=== PATIENT | male | born 1945 | race Caucasian/White ===

== ENCOUNTER 2022-01-21 14:45 | Outpatient (CLI) | payer BC, SELFPAY ==
[2022-01-21 16:55] LABS: INR 2.04 (0.91-1.10); Prothrombin Time 23.5 Seconds
[2022-01-21 18:01] LABS: Albumin* 4.5 g/dL (3.3-5.0); Chloride* 103 mmol/L (96-114)
[2022-01-21 18:02] LABS: Potassium* 4.5 mmol/L (3.6-5.1); Sodium* 139 mmol/L (135-149)
[2022-01-21 18:04] LABS: Alkaline Phosphatase* 66 U/L (40-150); Aspartate Amino Transferase* 30 U/L (12-35); Bilirubin Total* 1.2 mg/dL (0.1-1.5); Blood Urea Nitrogen* 16 mg/dL (7-30); Carbon Dioxide* 29 mmol/L (20-32); Creatinine* 0.9 mg/dL (0.5-1.5); Estimated Glomerular Filt Rate 87.96; Total Protein* 7.2 g/dL (6.0-8.3)
[2022-01-21 18:05] LABS: Alanine Aminotransferase* 24 U/L (4-50); Calcium* 9.4 mg/dL (8.4-10.6); Glucose* 120 mg/dL (60-115)
== END 2022-01-21 14:46 | disposition home or self-care (01) ==
PROVIDERS: PCP Family Medicine; Visit Provider Family Medicine
DX: Z00.00 Encounter for general adult medical examination without abnormal findings (principal); I10 Essential (primary) hypertension; I48.91 Unspecified atrial fibrillation; I48.92 Unspecified atrial flutter; Z79.01 Long term (current) use of anticoagulants
CPT/HCPCS: 80053; 85610

== ENCOUNTER 2022-02-25 15:35 | Outpatient (REF) | payer BC, SELFPAY ==
--- OUTSIDE RECORDS SUMMARY | 2022-02-25 15:40 | XMS_ITS | Encounter Summary ---
:1945 Author Organization [facility] Address [address] [place] [address] Care Team Providers Name Role Phone Unavailable Primary Care Provider Unavailable Reason for Referral Outpatient (Routine) - Authorized Specialty Diagnoses / Procedures Referred By Contact Refer red To Contact Neurology Cameron Poe M.D ., M.P.H. [facility] Region [address] [place] [address] Referral ID Status Reason Start Date Expiration Date Visits V isits Requested Authorized [id number] Authorized 02/03/2022 02/03/2023 1 1 Reason for Visit Reason Comments Central Sleep Apnea Vascular dementia Ref. Dr. Komal Prattjacoby [facility] Appointment Request (Routine) - Closed Specialty Diagnoses / Procedures Referred By Contact Refer red To Contact Neurology Referral ID Status Reason Start Date Expiration Date Visits Requ ested Visits Authorized [id number] Closed 01/27/2022 01/27/2023 1 Encounter Details Date Type Department Care Team Description 02/03/2022 Comprehensive Visit Department of Cameron Poe a Multiple Infarction (HCC) (Primary Dx); Neurology in [place], Apnea Sleep [place] M.P.H. [address] [place] [address] [address] [facility] [phone] [place], [place] [phone] Social History Tobacco Use Types Packs/Day Years Used Date Smoking Tobacco: Former Cigarettes Quit : 1978 Smokeless Tobacco: Never Tobacco Cessation: Counseling Given: Not Answered Sex Assigned at Date Recorded Not on file documented as of this encounter Last Filed Vital Signs Vital Sign Reading Time Taken Comments Blood Pressure 107/73 02/03/2022 2:05 PM CDT Pulse 81 02/03/2022 2:05 PM CDT Temperature - - Respiratory Rate - - Oxygen Saturation - - Inhaled Oxygen Concentration - - Weight 89.6 kg (197 lb 8.5 oz) 02/03/2022 2:05 PM CDT Height 184 cm (6' 0.44) 02/03/2022 2:05 PM CDT Body Mass Index 26.46 02/03/2022 2:05 PM CDT documented in this encounter Progress Notes Cameron Poe M.D., M.P.H. - 02/03/2022 2:30 PM CDT Sleep Clinic No referring provider defined for this encounter. SUBJECTIVE HISTORY OF PRESENT ILLNESS The patient is for here for a get acquainted meeting. He had bilevel ventilation for a long time and then was recently changed to ASV by the most recent treating sleep physician. His machine is sonew that he is going to need a compliance return but he has only had a week so this is too early forthat. So he will indeed have to come back. Download for the last two days shows he has used it half of that time and when he did use it for 3 hours and 29 minutes with a residual AHI of 4.8. I explained that compliance criteria require that he use it for an average of more than 4 hours a night and more than 70% of nights and they verbalized understanding of. He says he getting use the machine thinks he will be able to get on with that. Patient also has vascular dementia they want me to follow with him for that and I agreed to do that. [place] Sleepiness Score: Seven MEDICAL HISTORY No past medical history on file. SURGICAL HISTORY No past surgical history on file. CURRENT MEDICATIONS Current Outpatient Medications: cholecalciferol, vitamin D3, (cholecalciferol) 25 mcg (1,000 Unit) tablet, Take 25 mcg by mouth daily., Disp: , Rfl: dofetilide (TIKOSYN) 250 mcg capsule, Take 250 mg by mouth 2 (two) times a day., Disp: , Rfl: donepeziL (ARICEPT) 10 mg tablet, Take 10 mg by mouth daily., Disp: , Rfl: ipratropium (ATROVENT) 21 mcg (0.03 %) nasal spray, Administer 2 sprays into each nostril 3 (three)times a day as needed for rhinitis., Disp: , Rfl: Jantoven 5 mg tablet, Take 5 mg by mouth daily., Disp: , Rfl: lisinopriL (PRINIVIL,ZESTRIL) 10 mg tablet, Take 10 mg by mouth daily., Disp: , Rfl: memantine (NAMENDA) 10 mg tablet, TAKE 1 TABLET (10 MG) BY MOUTH TWICE DAILY., Disp: , Rfl: polyethylene glycol (MIRALAX) 17 gram powder packet, Take 17 g by mouth daily. Dissolve each 17 g dose in 240 mLs (8 ounces) of beverage., Disp: , Rfl: cetirizine (ZyrTEC) 10 mg chewable tablet, Chew 10 mg as needed for allergies., Disp: , Rfl: ALLERGIES Allergies Allergen Reactions Penicillin G Hives Sulfa (Sulfonamide Antibiotics) Rash FAMILY HISTORY No family history on file. SOCIAL HISTORY Social History Socioeconomic History Marital status: Unknown Spouse name: Not on file Number of children: Not on file Years of education: Not on file Highest education level: Not on file Occupational History Not on file Tobacco Use Smoking status: Former Types: Cigarettes Quit date: 1978 Years since quittin.5 Smokeless tobacco: Never Substance and Sexual Activity Alcohol use: Not on file Drug use: Not on file Sexual activity: Not on file Other Topics Concern Not on file Social History Narrative Not on file Social Determinants of Health Financial Resource Strain: Not on file Food Insecurity: Not on file Transportation Needs: Not on file Physical Activity: Not on file Stress: Not on file Social Connections: Not on file Intimate Partner Violence: Not on file Housing Stability: Not on file OBJECTIVE PHYSICAL EXAMINATION BP 107/73 (BP Location: Left arm, Patient Position: Sitting, Cuff Size: Regular) Pulse 81 Ht 184cm Wt 89.6 kg BMI 26.46 kg/m?? Neurological Exam Cognition: Alert Cranial Nerves: II-XII intact and symmetric. Gait: Normal. ASSESSMENT / PLAN Encounter Diagnoses Name Primary? Dementia Multiple Infarction (HCC) Yes Apnea Sleep Obstructive I think we have agreed to were together so I am going to plan to see him back between one and three months to get a download confirm compliance with his new ASV machine. At that time will take a look at his vascular dementia a diagnosis and see if we need to do anything else. I personally spent 20 minutes in care of the patient today. Time includes both non face to face and face to face patient care. Patient was counseled regarding weight as a risk factor for sleep disordered breathing. The patient was counseled on driving while drowsy. Cameron Poe M.D., M.P.H. documented in this encounter Plan of Treatment Upcoming Encounters Date Type Specialty Care Team Description 04/14/2022 Office Visit Neurology Cameron Peo M.D., M.P.H. [address] [phone] (Wo rk) Scheduled Referrals Name Type Priority Associated Diagnoses Order [facility] Neurology office Outpatient Referral Routine Expe cted: visit (clinic) 04/06/2022 (Approximate), Expires: 05/06/2023 documented as of this encounter Visit Diagnoses Diagnosis Dementia Multiple Infarction (HCC) - Elisabet cam Apnea Sleep Obstructive documented in this encounter
--- OUTSIDE RECORDS SUMMARY | 2022-02-25 15:40 | XMS_ITS | Continuity of Care Document ---
:1945 Author Organization [facility] Address [address] [place] [phone] Phone Care Team Providers Name Role Phone Timoteo Acosta D.O. Unavailable Unavailable Allergies, Adverse Reactions, Alerts Substance Reaction Status Criticality Sulfa (Sulfonamide Antibiotics) Active No Information PENICILLIN Active No Information Medications Medication Instructions Dosage Effective Dates Status Comment s (start - stop) Refresh Liquigel 1 % - Active eye liquid gel drops Miralax 17 gram oral - Active powder packet Flonase Sensimist 27.5 - Active mcg/actuation nasal spray,suspension Aricept 5 mg tablet - Active Namenda 5 mg tablet - Active Vitamin D3 10 mcg (400 - Active unit) tablet LISINOPRIL (unknown Not Available - Active strength) TIKOSYN (unknown Not Available - Active strength) COUMADIN (unknown Not Available - Active strength) Procedures Procedure Date Laser Capsulotomy Laser Capsulotomy OFFICE/OUTPATIENT VISIT, EST POSTOP FOLLOW-UP VISIT CATARACT SURG W/IOL, 1 STAGE IOL Master OFFICE/OUTPATIENT VISIT, EST Imprimis PredMoxiNepaf Drops Imprimis PredMoxiNepaf Drops POSTOP FOLLOW-UP VISIT CATARACT SURG W/IOL, 1 STAGE IOL Master OFFICE/OUTPATIENT VISIT, NEW Imprimis PredMoxiNepaf Drops Advance Directives Directive Yes / No Effective Date File Name No Information Encounters Encounter Practice Location Reason(s) Diagnoses Date Provider Provide rs Description For Visit Copied on Encounter [facility] [place] [facility] Dave Eye Eye Information -2021. 2054 Clinic, Clinic, [address], [place], [place], [facility] [id number], [place], [place], [place]. [id number], tel:[phone] [place] [phone] tel:[phone] [place] [address] [place] Dave Referring Eye [place] Ophthal Information -2021. 2054 Provid er: Clinic, ASC [address], [facility], [place], [place], Clinic [address] [facility] [id number], [address] [place], [place], [place]. Denis 110, [id number], tel:[phone] [place] [id number] [place], [place], tel:[phone]. [id number] tel:[phone] [place] [address] [place] No Dave Referring Eye [place] Ophthal Information -2021. 2054 Provid er: Clinic, ASC [address], [place], [place], Clinic [address] [facility] [id number], [address] [place], [place], [place]. Denis 110, [id number], tel:[phone] [place] [id number] [place], [place], tel:[phone]. [id number] tel:[phone] OFFICE/OUTPAT [facility] [place] decreased PCO-OSDrusen Dave emerson IENT VISIT, Eye Eye vision ( -2021. 2054 Pro vider: EST Clinic, Clinic, (chief ) of macula, [address] complaint) left eye Street N, [place], [place], Clinic [address] [facility] [id number], [address] [place], [place], [place]. Denis 110, [id number], tel:[phone] [place] [id number] [place], [place], tel:[phone]. [id number] tel:[phone] [place] [address] [place] no No Dave Referring Eye Eye complaints Information -2018el. 2054 Provid er: Clinic, Clinic, (chief robbi Acosta [address] N, W, [address] ed/moxi/nepa [facility], f qid (chief [place], [place], N, [facility] complaint) [id number], [place], [place], [place]. [id number]. [id number], tel:[phone] tel:[phone] [place] [id number] tel:[phone] [place] [address] [place] Dave Referring Eye [place] Ophthal Information -2019 Timoteo. 2054 Provid er: [facility] [address], W, [address], [place], [place], N, [facility] [id number], [place], [place], [place]. [id number]. [id number], tel:[phone] tel:[phone] [place] [phone] tel:[phone] OFFICE/OUTPAT [facility] [place] [facility] [place] blurry Cat-combined- Dave Re ferring IENT VISIT, Eye Eye vision ODCat-Pseudop -2018. 2054 Pro vider: EST Clinic, Clinic, (chief jhonathana Timoteo Dave [address] N, W, [address], [place], N, [facility] [id number], [place], [place], [place]. [id number]. [id number], tel:[phone] tel:[phone] [place] [phone] [id number] tel:[phone] [place] [address] [place] No Dave Referring Eye Eye Information -2018el. 2054 Provider: Clinic, Clinic, [facility] Dave [address], W, [address], [place], N, [facility] [id number], [place], [place], [place]. [id number]. [id number], tel:[phone] tel:[phone] [place] [id number] tel:[phone] [place] [address] [place] No Dave Referring Eye Eye Information -2019 Timoteo. 2054 Provider: Clinic, Clinic, [facility] Dave [address], W, [address], [place], [place], N, [facility] [id number], [place], [place], [place]. [id number]. [id number], tel:[phone] tel:[phone] [place] [phone] [id number] tel:[phone] [place] [address] [place] vision is No Dave Referring Eye Eye improved Information -2018el. 2054 Provider : Clinic, Clinic, (chief Timoteo Acosta [address], W, [address] Street pain or [facility], discomfort [place], N, [facility] Saint (chief [id number], [place], [place], [place], complaint)pr [place]. [id number] 8. [id number], ed/moxi/nepa tel:[phone] tel:[phone] [place] f QID (chief [phone] [id number] tel:[phone] complaint) [id number] [facility] [place] [address] [place] No Dave Referring Eye [place]hthal Information -2018el. 2054 Provid er: Clinic, ASC [facility] [address], [facility], Street [facility], [place], [place], Clinic [address] [facility] [id number], [address] [place], [place], [place]. Denis 110, [id number], tel:[phone] [facility] [id number] [place], [place], tel:[phone]. [phone] tel:[phone] OFFICE/OUTPAT [address] [place] [address] [place] blurry Cat-combined- Dave jo IENT VISIT, Eye Eye vision OSCat-combine -2018. 2054 Pro vider: NEW Clinic, Clinic, (chief mohsen-[facility] [address] complaint) (degenerative Street N, Fem rite Huong, Street ) of macula, [facility], bilateral [place], [place], Clinic [address] [facility] [id number], [address] [place], [place], [place]. Denis 110, [id number], tel:[phone] [place] [id number] [place], [place], tel: [phone]. [phone] tel:[phone] [facility] No Dave Referring Eye Eye Information -2018 Timoteo. 2054 Provider: Clinic, Clinic, Timoteo Acosta [address], W, 2054 [facility] [address], [place], [facility] [id number], [place], [place], [place]. [id number]. [id number], tel: tel:[phone] tel:[phone] Family History Family Member Type Diagnosis Age At Onset No Information Payers Payer name Insurance type Covered green party ID Authorization(s ) [facility] [id number] Social History Type Description Quantity Date Captured Comments Sex Male Smoking Status No Information Chief Complaint And Reason For Visit No Information Plan Of Treatment Date Type Action Status No Information History Of Present Illness Encounter Date Complaint History Of Present I llness decreased vision The 75 year old male presents for evaluation of decreased vision in the right eye and left eye. Pt states he has notice d a decrease in near and distance VA OS > OD the past few months. blurry vision The 73 year old male presents for evaluation of blurry vision in the right. VA has gradually become blurry affecting bot h distance and near detail. He finds driving at [facility] difficult due to the glare of headlights. blurry vision The 73 year old male presents for evaluation of blurry vision in the left > right. VA has gradually become blurry affect ing both distance and near detail. He finds dri ving at night difficult due to the glare of headlig hts. 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
--- OUTSIDE RECORDS SUMMARY | 2022-02-25 15:40 | XMS_ITS | Clinical Summary ---
:1945 Author Organization [facility] Address [address] [place] [address] Care Team Providers Name Role Phone Unavailable Primary Care Provider Unavailable Source Comments Patient records contain information from all sites at [facility]. For routine questions regarding patient records, call [phone] during business hours, M-F 8:00 AM - 5:00 PM Central Time. Record requests for emergency care only can be directed to [phone] at any time.[facility] Allergies Active Allergy Reactions Severity Noted Date Comments Penicillin G Hives 02/03/2022 Sulfa (Sulfonamide Antibiotics) Rash Medications Medication Sig Dispensed Refills Start Date End Date Status dofetilide (TIKOSYN) Take 250 mg by 0 12/26/2021 Active 250 mcg capsule mouth 2 (two) times a day. memantine (NAMENDA) TAKE 1 TABLET (10 0 11/17/2021 Active 10 mg tablet MG) BY MOUTH TWICE DAILY. lisinopriL Take 10 mg by mouth 0 01/19/2022 Active (PRINIVIL,ZESTRIL) 10 daily. mg tablet donepeziL (ARICEPT) Take 10 mg by mouth 0 11/29/2021 Active 10 mg tablet daily. Jantoven 5 mg tablet Take 5 mg by mouth 0 01/29/2022 Active daily. ipratropium Administer 2 sprays 0 Active (ATROVENT) 21 mcg into each nostril 3 (0.03 %) nasal spray (three) times a day as needed for rhinitis. cholecalciferol, Take 25 mcg by 0 Active vitamin D3, mouth daily. (cholecalciferol) 25 mcg (1,000 Unit) tablet cetirizine (ZyrTEC) Chew 10 mg as 0 Active 10 mg chewable tablet needed for allergies. polyethylene glycol Take 17 g by mouth 0 Active (MIRALAX) 17 gram daily. Dissolve powder packet each 17 g dose in 240 mLs (8 ounces) of beverage. Active Problems Problem Noted Date Dementia Multiple Infarction 02/04/2022 Apnea Sleep Obstructive 02/04/2022 Encounters Date Type Specialty Care Team Description 02/03/2022 Comprehensive Visit Neurology Cameron Poe Blackjose m villalba Multiple Infarction (HCC) (Primary Dx); Gia, M.P.H. Apnea Sleep Obs tructive from Last 3 Months Social History Tobacco Use Types Packs/Day Years Used Date Smoking Tobacco: Former Cigarettes Quit : 1978 Smokeless Tobacco: Never Tobacco Cessation: Counseling Given: Not Answered Sex Assigned at Date Recorded Not on file Last Filed Vital Signs Vital Sign Reading [...] Mass Index 26.46 02/03/2022 2:05 PM CDT Plan of Treatment Upcoming Encounters Date Type Specialty Care Team Description 04/14/2022 Office Visit Neurology Cameron Poe M.D., M.P.H. [address] [place] [phone] (Wo rk) Health Maintenance Due Date Last Done Comments Creatinine Level 1945 Hepatitis C Screening 1945 Potassium Level 1945 Sodium Level 1945 Zoster Vaccines (2 of 3) 03/25/2010 01/28/2010 Fall Risk Screen (Annual) 07/12/2021 Influenza Vaccine (#1) 2022 03/25/2021, 03/12/2020, 05/10/2019, Additional history exists DTaP,Tdap,and Td Vaccines (2 - Td 08/21/2023 08/21/2013 or Tdap) Pneumococcal vaccine (65+ years) Completed 08/28/2016, , 01/28/2010 COVID-19 Vaccine Completed 11/04/2021, 04/29/2021, 09/05/2020, Additional history exists Insurance Payer Benefit Plan Subscriber ID Effective Phone Address Typ e / Group Dates [facility] [employer] [id number] 2015-Prese [phone] [address] Indemnity [facility] RETI[facility] nt [address] [place] [address] (Home) [address] [place] [address]
--- OUTSIDE RECORDS SUMMARY | 2022-02-25 15:40 | XMS_ITS | Continuity of Care Document ---
:1945 Author Organization [facility] Address [address] [place] [address] Phone Care Team Providers Name Role Phone [facility] MD, [facility] Unavailable Unavai lable Allergies, Adverse Reactions, Alerts Substance Reaction Status Criticality Sulfa (Sulfonamide Antibiotics) rash Active No Information PENICILLIN rash Active No Information Medications Medication Instructions Dosage Effective Dates Status Comment s (start - stop) Dkve-Wgwo-Uzaom Apply one drop to - Active 1%/0.5%/.01% affected eye(s) four OPHTHALMIC DROPS times per day amcinonide 0.1 % apply by topical 0.00 - Active topical cream route 2 times every day a thin layer to the affected area(s) as needed Tikosyn 250 mcg take 1 capsule by 250 MCG - Active capsule oral route 2 times every day Flonase Allergy spray 1 - 2 spray by 50-100 MCG - Active Relief 50 intranasal route mcg/actuation nasal every day in each spray,suspension nostril as needed lisinopril 10 mg take 1 tablet by 10 MG - Active tablet oral route every day Reglan 5 mg tablet take 1 tablet by 5 MG - Active oral route 3 times every day 30 minutes before meals and at bedtime as needed Vitamin D3 2,000 unit - Active capsule triamcinolone apply by topical 0.00 - Active acetonide 0.1 % route 2 times every topical cream day a thin layer to the affected area(s) as needed Coumadin 5 mg tablet take 1 tablet by 5 MG - Active oral route every day except mon., fri. Procedures Procedure Date Laser Capsulotomy Laser Capsulotomy CATARACT SURG W/IOL, 1 STAGE CATARACT SURG W/IOL, 1 STAGE Advance Directives Directive Yes / No Effective Date File Name No Information Encounters Encounter Practice Location Reason(s) Diagnoses Date Provider Provide rs Description For Visit Copied on Encounter [facility] [place] [facility] [place] [facility] Ophthalmology Pro vider: Ophthalmic Ophthal 2 ASC. [address] Surgery, ASC [address] [place]. Dave W , [address], [address] [place] [address], [place], [place], [address] N, [place], [id number]. [facility] [place], tel:[phone] [place] , [id number], [id number]. [place] tel: tel:[phone] [place] [address] [place] [facility] [place] [facility] Ophthalmology Pro vider: Ophthalmic Ophthal 2 ASC. [address] [place] Surgery, ASC [address] [place]. Dave W , [address] [place], [place], [place], [address] N, [place], [id number]. [facility] [place], tel:[phone] [place], [place] , [id number], 620 [id number]. [place] tel: tel:[phone] [place] [facility] [place] [facility] Ophthalmology Pro vider: Ophthalmic Ophthal 9 ASC. [address] [place] Surgery, ASC [address] [place]. Dave W , [address], [address] [place], [place], [place], [address] N, [place], [id number]. [facility] [place], tel:[phone] [place] , [id number], [phone] [id number]. [place] tel: tel:[phone] [place] [address] [place] [facility] [place] Ophthalmology Pro vider: Ophthalmic Ophthal 9 ASC. [address] [place] Surgery, ASC [address] IF[place]. Dave W , [address], [address] . [facility] B, [place], [place], Street N, [place], [id number]. [facility], tel:[phone] [place] , [id number], [facility] [id number]. tel:[phone] tel:[phone] [id number] [facility] No Dave [place]. [facility] [place] Information [address], Surgery, [facility] [place], [address] [place], [id number], [facility], . [place], tel:[phone] [place], [id number], [place] tel:[phone] Family History Family Member Type Diagnosis Age At Onset No Information Payers Payer name Insurance type Covered libertarian ID Authorization(s ) [facility] [id number] Social History Type Description Quantity Date Captured Comments Sex Male Smoking Status No Information Chief Complaint And Reason For Visit No Information Plan Of Treatment Date Type Action Status No Information History Of Present Illness Encounter Date Complaint History Of Present I llness No Information Instructions Date Instruction Additional Informati on No Information Assessments Type Assessment Date No Information
--- OUTSIDE RECORDS SUMMARY | 2022-02-25 15:41 | XMS_ITS | Continuity of Care Document ---
:1945 Author Organization [facility] Address C/O Raulito [facility] [address] [place] [address] Phone Care Team Providers Name Role Phone VETO MALDONADO MD Unavailable Unavailable Procedures Procedure Date Subsqt Hosp-da E&m Minr Compl Init Inpt Cons New/est Mod-hi Advance Directives Directive Yes / No Effective Date File Name No Information Encounters Encounter Practice Location Reason(s) Diagnoses Date Provider Provide rs Description For Visit Copied on Encounter Subsqt Hosp-da [facility], [facility] No TAY TRENT Referri ng E&m [facility]r [facility] Pro vider: [id number], [address] [facility], [facility] [address], [place] [id number], [place], [place], [place] [address] , [facility], . [place], [place], tel: tel: [phone]. [phone] tel: [phone] Init Inpt Cons [facility], [facility] No ICOCHEA Referri ng New/est Mod-hi Raulito [place] Information -2006 JOVANNY. Prov ider: [address] [id number], , [address], [address] [facility] [place], [place], [place], [place], [place] [id number], [id number], [place] [address] , [facility]. [place], [place], tel: tel: [phone]. [phone] tel:[phone] Family History Family Member Type Diagnosis Age At Onset No Information Payers Payer name Insurance type Covered green party ID Authorization(s ) No Information Social History Type Description Quantity Date Captured [...]
[2022-02-25 16:52] LABS: Potassium* 4.1 mmol/L (3.6-5.1)
[2022-02-25 16:55] LABS: Creatinine* 0.9 mg/dL (0.5-1.5); Estimated Glomerular Filt Rate 88 ml/min; Magnesium* 2.2 mg/dL (1.5-2.6)
== END 2022-02-25 15:36 | disposition home or self-care (01) ==
LOC: NPINS 15:35
PROVIDERS: PCP Family Medicine
DX: Z79.899 Other long term (current) drug therapy (principal); I48.91 Unspecified atrial fibrillation
CPT/HCPCS: 82565; 83735; 84132

== ENCOUNTER 2022-03-13 14:50 | Outpatient (CLI) | payer BC, SELFPAY ==
--- OUTSIDE RECORDS SUMMARY | 2022-03-13 14:53 | XMS_ITS | Continuity of Care Document ---
:1945 Author Organization [facility] Address [address] [place] [address] Phone Care Team Providers Name Role Phone [facility] MD, ASC Unavailable Unavai lable Allergies, Adverse Reactions, Alerts Substance Reaction Status Criticality Sulfa (Sulfonamide Antibiotics) rash Active No Information PENICILLIN rash Active No Information Medications Medication Instructions Dosage Effective Dates Status Comment s (start - stop) Oyuw-Fecx-Nslfd Apply one drop to - Active 1%/0.5%/.01% [...] Description For Visit Copied on Encounter [facility] [place] [facility] [place] Information Ophthalmology Pro vider: Ophthalmic Ophthal 2 ASC. [address] [place] Surgery, [address] ST[address] [place]. Dave W , [address], [address]. [place] B, [place], [place], [address] N, [place], [id number]. [facility] [place], tel:[phone] [place] , [phone], [phone]. [place] tel: tel:[phone] [place] [address] [place] [facility] [place] Information Ophthalmology Pro vider: Ophthalmic Ophthal 2 ASC. [address] [place] Surgery, [address] ST., [place]. Dave W , [address], [address] [place] [address], [place], [place], [address] N, [place], [id number]. [facility] [place], tel:[phone] [place], [place] , [phone], [phone]. [place] tel: tel:[phone] [place] [address] [place] [facility] [place] Information Ophthalmology Pro vider: Ophthalmic Ophthal 9 ASC. [address] [place] Surgery, ASC ST[address] [place]. Dave W , [address], [address] [place] [address], [place], [place], [address] N, [place], [id number]. [facility] [place], tel:[phone] [place] , [phone], [phone]. [place] tel: tel:[phone] [place] [address] [place] [facility] [place] Information Ophthalmology Pro vider: Ophthalmic Ophthal 9 ASC. [address] [place] Surgery, ASC ST., [place]. Dave W , [address]54 B, [address] . [facility] B, [place], [place], Street N, [place], [id number]. [facility], tel:[phone] [place] , [id number], [facility] [id number]. tel:[phone] tel:[phone] [facility] No Dave [place]. [facility] [place] Information [address], Surgery, ASC [place], 2054 [place], [id number], [facility], . [place], tel:[phone] [place], [phone], [place] tel:[phone] Family History Family Member Type Diagnosis Age At Onset No Information Payers Payer name Insurance type Covered libertarian ID Authorization(s ) [facility] [place] [id number] Social History Type Description Quantity Date Captured [...]
--- OUTSIDE RECORDS SUMMARY | 2022-03-13 14:53 | XMS_ITS | Continuity of Care Document ---
:1945 Author Organization [facility] Address C/O Raulito [facility] [address] [place] [address] Phone Care Team Providers Name Role Phone VETO MALDONADO MD Unavailable Unavailable Procedures Procedure Date Subsqt Hosp-da E&m Minr Compl Init Inpt Cons New/est Mod-hi Advance Directives Directive Yes / No Effective Date File Name No Information Encounters Encounter Practice Location Reason(s) Diagnoses Date Provider Provide rs Description For Visit Copied on Encounter Subsqt Hosp-da [facility], [facility] No TAY TRENT Referri ng E&m Minr [facility] Pro vider: [id number], [address] [facility], [facility] [address], [place] [id number], [place], [place] [address] , [facility], . [place], [place], tel: tel: [phone]. [phone] tel: [phone] Init Inpt Cons [facility], C/O [facility] No ICOCHEA Referri ng New/est Mod-hi Raulito [place] Information -2006 JOVANNY. Prov ider: [address] [id number], , [address], [address] [facility], [place], [place], [place], [place] [id number], [id number], [place] [address] , [facility]. [place], [place], tel: tel: [phone]. [phone] tel:[phone] Family History Family Member Type Diagnosis Age At Onset No Information Payers Payer name Insurance type Covered libertarian ID Authorization(s ) No Information Social History [...]
--- OUTSIDE RECORDS SUMMARY | 2022-03-13 14:53 | XMS_ITS | Encounter Summary ---
:1945 Author Organization [facility] Address [address] [place] [address] Care Team Providers Name Role Phone Unavailable Primary Care Provider Unavailable Reason for Referral Outpatient (Routine) - Authorized Specialty Diagnoses / Procedures Referred By Contact Refer red To Contact Neurology Cameron Poe M.D ., M.P.H. [facility] Region [address] [place] [address] Referral ID Status Reason Start Date Expiration Date Visits V isits Requested Authorized [id number] Authorized 02/03/2022 02/03/2023 1 1 Reason for Visit Reason Comments Central Sleep Apnea Vascular dementia Ref. Dr. Komal [facility] Appointment Request (Routine) - Closed Specialty Diagnoses / Procedures Referred By Contact Refer red To Contact Neurology Referral ID Status Reason Start Date Expiration Date Visits Requ ested Visits Authorized [id number] Closed 01/27/2022 01/27/2023 1 Encounter Details Date Type Department Care Team Description 02/03/2022 Comprehensive Visit Department of Cameron Poe a Multiple Infarction (HCC) (Primary Dx); Neurology in [place], Apnea Sleep Obs [place] M.P.H. [address] [place] [address] [facility] [address] [place], [place] [phone] [address] Social History Tobacco Use Types Packs/Day [...] that and I agreed to do that. Maryneal Sleepiness Score: Seven MEDICAL HISTORY No past [...] patient was counseled on driving while drowsy. Camreon Poe M.D., M.P.H. documented in this encounter Plan of Treatment Upcoming Encounters Date Type Specialty Care Team Description 04/14/2022 Office Visit Neurology Cameron Poe M.D., M.P.H. [address] [phone] (Wo rk) Scheduled Referrals Name Type Priority Associated Diagnoses Order S [facility] Neurology office Outpatient Referral Routine Expe cted: visit (clinic) 04/06/2022 (Approximate), Expires: 05/06/2023 documented as of this encounter Visit Diagnoses Diagnosis Dementia Multiple Infarction (HCC) - Elisabet cam Apnea Sleep Obstructive documented in this encounter
--- OUTSIDE RECORDS SUMMARY | 2022-03-13 14:53 | XMS_ITS | Continuity of Care Document ---
:1945 Author Organization [facility] Address [address] [place] [address] Phone Care Team Providers Name Role Phone [...] Visit Copied on Encounter St [address] [facility] [place] No Dave Eye Eye Information -2021. 2054 Clinic, Clinic, [address], [place], [place], [facility] [id number], [place], [place], [place]. [id number], tel:[phone] tel:[phone] [place] [address] [place] No Dave Referring Eye [place] Ophthal Information -2021. 2054 Provid er: Clinic, ASC [address], [facility], [place], [place], Clinic [address] [facility] [id number], [address] [place], [place], [place]. [place] 110, [id number], tel:[phone] [place], [place], tel:[phone] tel:[phone] [place] [address] [place] Referring Eye [place] Ophthal Information -2021. 2054 Provid er: Clinic, ASC [address], [place], [place], Clinic 308 [facility] [id number], [address] [place], [place], [place]. Denis 110, [id number], tel:[phone] [place] [phone] [place], [place], tel:[phone] tel:[phone] OFFICE/OUTPAT St [facility] [place] decreased PCO-OSDrusen Dave emerson IENT VISIT, Eye Eye vision ( -2021. 2054 Pro vider: EST Clinic, Clinic, (chief ) of macula, [address] complaint) left eye Street N, [place], [place], Clinic 308 [facility] [id number], [address] [place], [place], [place]. Denis 110, [id number], tel:[phone] [place] [id number] [place], [place], tel:[phone] tel:[phone] [place] [address] [place] no No Dave Referring Eye Eye complaints Information -2018el. 2054 Provid er: Clinic, Clinic, (chief robbi Acosta [address] complaint)pr Street N, W, [address] Street ed/moxi/nepa [facility], f qid (chief [place], [place], N, [facility] complaint) [id number], [place], [place], [place]. [id number]. [id number], tel:[phone] tel:[phone] [place] [phone] tel:[phone] [place] [address] [place] Dave Referring Eye [place] Ophthal Information -2019 [place]. 2054 Provid er: Clinic, [facility] Dave [address], W, [address], [place], N, [facility] [id number], [place], [place], [place]. [id number]. [id number], tel:[phone] tel:[phone] [place] [phone] tel:[phone] OFFICE/OUTPAT [facility] [place] [address] [place] blurry Cat-combined- Dave Re ferring IENT VISIT, Eye Eye vision ODCat-Pseudop -2018. 2054 Pro vider: EST Clinic, Clinic, (chief jhonathana [place] Dave [address] complaint) Street N, W, [address], [place], N, [facility] [id number], [place], [place], [place]. [id number]. [id number], tel:[phone] tel:[phone] [place] [phone] 315023 tel:[phone] [place] [address] [place] No Dave Referring Eye Eye Information -2018el. 2054 Provider: Clinic, Clinic, [facility] Dave [address], W, [address], [place], [place], N, [facility] [id number], [place], [place], [place]. [id number]. [id number], tel:[phone] tel:[phone] [place] [phone] tel:[phone] [place] [address] [place] No Dave Referring Eye Eye Information -2019 [place]. 2054 Provider: Clinic, Clinic, [facility] Dave [address], W, [address] [place], [place], [place], N, [place] [id number], [place], [place], [place]. [id number]. [id number], tel:[phone] tel:[phone] [place] [phone] tel:[phone] [place] [address] [place] vision is No Dave Referring Eye Eye improved Information -2018el. 2054 Provider : Clinic, Clinic, (chief Timoteo Acosta [address] complaint)no Street N, W, [address] Street pain or [facility], discomfort [place], N, [facility] Saint (chief [id number], [place], [place], complaint)pr [place]. [id number] 8. [id number], ed/moxi/nepa tel:[phone] tel:[phone] [place] f QID (chief [phone] tel:[phone] complaint) [id number] St [place] [address] [place] No Dave Referring Eye [place] Ophthal Information -2018el. 2054 Provid er: Clinic, ASC [facility] [address], [facility], Street [facility], [place], Clinic 308 [facility] [id number], [address] [place], [place], [place]. [place] 110, [id number], tel:[phone] [facility] [id number] [place], [place], tel:[phone] tel:[phone] OFFICE/OUTPAT [address] [place] blurry Cat-combined- Dave jo IENT VISIT, Eye Eye vision OSCat-combine -2018. 2054 Pro vider: NEW Clinic, Clinic, (chief mohsen-Efrem [facility] 2054 [address] complaint) (degenerative Street N, Fem rite Huong, Street ) of macula, [facility], bilateral [place], Clinic 308 [facility] [id number], [address] [place], [place], [place]. [place] 110, [id number], tel:[phone] Cold [place] [phone] [place], [place], tel: [phone] tel:[phone] [facility] No Dave Referring Eye Eye Information -2018 [place]. 2054 Provider: Clinic, Clinic, Tim[place] Acosta [address] N, W, 2054 [facility] 15[place], [place], [facility] [id number], [place], [place], [place], [place]. [id number]. [id number], tel: tel:[phone] tel:[phone] Family History Family Member Type Diagnosis Age At Onset No Information Payers Payer name Insurance type Covered alliance party ID Authorization(s ) [facility] [id number] Social History Type Description Quantity Date Captured [...] and near detail. He finds driving at [facility] difficult due to the glare of headlights. 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
--- OUTSIDE RECORDS SUMMARY | 2022-03-13 14:53 | XMS_ITS | Clinical Summary ---
:1945 Author Organization [facility] Address [address] [place] [address] Care Team Providers Name Role Phone Unavailable Primary Care Provider Unavailable Source Comments Patient records contain information from all sites at [facility]. For routine questions regarding patient records, call [phone] during business hours, M-F 8:00 AM - 5:00 PM Central Time. Record requests for emergency care only can be directed to [phone] at any time.[facility] Allergies Active Allergy Reactions Severity Noted Date [...] Visit Neurology Cameron Poe M.D., M.P.H. [address] [place] [phone] (Wo rk) Health Maintenance Due Date [...] Typ e / Group Dates [facility] FEDERAL [id number] 2015-Prese [phone] [address] Indemnity [facility] nt [address] [place] [address] (Home) [address] [place] [address]
== END 2022-03-13 14:51 | disposition home or self-care (01) ==
LOC: RAD 14:51
PROVIDERS: PCP Family Medicine; Visit Provider Family Medicine
DX: I71.9 Aortic aneurysm of unspecified site, without rupture (principal); I35.1 Nonrheumatic aortic (valve) insufficiency; I34.0 Nonrheumatic mitral (valve) insufficiency
CPT/HCPCS: 93306

== ENCOUNTER 2022-05-11 13:41 | Outpatient (CLI) | payer BC, SELFPAY ==
--- OUTSIDE RECORDS SUMMARY | 2022-05-11 13:45 | XMS_ITS | Encounter Summary ---
:1945 Author Organization [facility] Address [address] [place] [address] Care Team Providers Name Role Phone Unavailable Primary Care Provider Unavailable Reason for Referral Outpatient (Routine) - Authorized Specialty Diagnoses / Procedures Referred By Contact Refer red To Contact Neurology Cameron Poe M.D ., M.P.H. [facility] [address] [place] [address] Referral ID Status Reason Start Date Expiration Date Visits V isits Requested Authorized [id number] Authorized 04/14/2022 04/13/2025 1 1 Reason for Visit Reason Comments Follow-up CPAP, Dementia Outpatient (Routine) - Closed Specialty Diagnoses / Procedures Referred By Contact Refer red To Contact Neurology Cameron Poe M.D ., M.P.H. [facility] Region [address] [place] [address] Referral ID Status Reason Start Date Expiration Date Visits Requ ested Visits Authorized [id number] Closed 02/03/2022 02/03/2023 1 1 Encounter Details Date Type Department Care Team Description 04/14/2022 Office Visit Department of Cameron Poe, Apnea Slee p Obstructive (Primary Dx); Neurology in [place], M.P.H. Dementia Multiple Infarction (HCC); [place], [place] [address] [facility] Parkinson Disease (HCC) [address] [place] [address] [phone] Social History Tobacco Use Types Packs/Day Years Used Date Smoking Tobacco: Former Cigarettes Quit : 1978 Smokeless Tobacco: Never Tobacco Cessation: Counseling Given: Not Answered Sex Assigned at Date Recorded Not on file documented as of this encounter Last Filed Vital Signs Vital Sign Reading Time Taken Comments Blood Pressure 124/74 04/14/2022 1:14 PM CDT Pulse 63 04/14/2022 1:14 PM CDT Temperature - - Respiratory Rate - - Oxygen Saturation - - Inhaled Oxygen Concentration - - Weight 89.9 kg (198 lb 3.1 oz) 04/14/2022 1:14 PM CDT Height - - Body Mass Index 26.55 02/03/2022 2:05 PM CDT documented in this encounter Consult Notes Cameron Poe M.D., M.P.H. - 04/14/2022 1:45 PM CDT Images from the original note were not included. Sleep Clinic SUBJECTIVE HISTORY OF PRESENT ILLNESS This patient presented to see me for number of complaints among them is sleep apnea. He has a diagnosis of central sleep apnea made elsewhere and when I saw him briefly on the 1st visit he had a new ASV machine. Today's visit the asks me about why he would be on ASV machine. And because I do not have any the studies I explained that it is likely the case that he had uncontrolled central sleep apnea and trials of both CPAP and BiPAP were unsuccessful and so ASV was given a trial. At today's visit we have a download from [facility] which reveals a residual AHI of 0.6. The minimum EPAP is seven the maximum EPAP is 15 with minimum pressure support 0 maximum pressure support 15 average use is 7 hours and 14 minutes and he has used 29 of the last 30 days. Median leak per minute is 0.0 L with 95th percentile being 4.7 maximum being 17.5. I believe he is using a fullface mask. He has gotten used to CPAP therapy in does not appear to be having any difficulties. He also cares a diagnosis of vascular dementia and he was started on donepezil and he is at 10 mg and memantine 10 mg p.o. b.i.d.. The notes that he has trouble problem-solving and this from a gentleman who has degree in mathematics and worked on [employer]. 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 He has trouble remembering what he read as an example he says he has region page he may forget what he read at the top of the page. 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 is concerned he might have Parkinson's disease and she says because he has a stooped posture shuffling gait and his handwriting has gotten some although he has little in the way of tremor, he doessometimes have a low-amplitude resting tremor in his hands. Further he also has constipation that mike troubling to him. He does not have any falls but he is quite careful using a walker commonly. [place] Sleepiness Score: 12 Narrative EXAM: MRI HEAD ROUTINE WITHOUT CONTRAST INDICATION: balance issues, memory loss,Rad Protocol,Memory loss TECHNIQUE: Multiplanar, multisequence magnetic resonance imaging performed without contrast. COMPARISON: None FINDINGS: Mild generalized cerebral atrophy. Moderate to advanced patchy and confluent white matter T2 hyperintensities throughout the cerebral white matter and slightly so basis pontis which, while nonspecific, likely microvascular ischemic related. Tiny focus of increased signal on diffusion left frontal chatterjee radiata, image 19, favor artifact over tiny lacune. Negative for definite acute CVA, acute hemorrhage, mass or hydrocephalus. The major flow voids are preserved. Sdgu-xc-jzulubhw left frontal mild ethmoidal mucosal thickening with trace left mastoid fluid. Prior cataract surgeries. IMPRESSION: Moderate to advanced white matter T2 hyperintensities nonspecific, likely microvascular ischemic related. Mild generalized atrophy. Negative for definite superimposed active process Exam End: 02/19/20 16:03 Specimen Collected: 02/19/20 16:19 Last Resulted: 02/19/20 16:24 Received From: [employer] [facility] [employer] Result Received: 03/04/22 16:29 OBJECTIVE PHYSICAL EXAMINATION BP 124/74 (BP Location: Right arm, Patient Position: Sitting, Cuff Size: Regular) Pulse 63 Wt 89.9 kg BMI 26.55 kg/m?? Neurological Exam Cognition: Alert and oriented x 4. His [place] Short Test of Mental status score was 33 out of 38 he missed two words on recall and one similarity and he could only do five of seven digit span. Cranial Nerves: II-XII intact and symmetric. Motor: Full strength throughout the upper and lower extremities bilaterally both proximally and distally. He has increased tone and plus one cogwheel rigidity I do not appreciate any resting tremor Reflexes: Normal and symmetric at the biceps, triceps, brachioradialis, knees, and ankles. Sensory: Normal sensation to touch. Cerebellar: Minus one bilaterally in his fingers Gait: Camptocormia with a shuffling gait, shortened stride and diminished arm swing ASSESSMENT / PLAN #1 Apnea Sleep Obstructive He has central sleep apnea is treated with ASV and according the download he is well treated. I am not going to make any changes to that. #2 Dementia Multiple Infarction (HCC) His mental status score still within range of normal limits the but I anticipate it would have been higher than that given his intellectual prowess earlier in life. His MRI suggests the possibility of vascular dementia although it does not exclude others as well. #3 Parkinson Disease (HCC) He certainly does appear Parkinson's, I rigid form of Parkinson's disease and his constipation is consistent with that. I am going to start Sinemet 25/100 1 tablet t.i.d.. I am not going to see him back hopefully until spring because he does walk quite poorly. Other orders - Neurology office visit (clinic) - carbidopa-levodopa (SINEMET) 25-100 mg per tablet; Take 1 tablet by mouth 3 (three) times a day., Starting Wed04/14/2022, Normal - Neurology office visit (clinic); Future; Expected date: 10/13/2022 I personally spent 45 minutes in care of the patient today. Time includes both non face to face and face to face patient care. Patient was counseled regarding weight as a risk factor for sleep disordered breathing. The patient was counseled on driving while drowsy. Cameron Poe M.D., M.P.H. documented in this encounter Plan of Treatment Scheduled Referrals Name Type Priority Associated Diagnoses Order S [facility] Neurology office Outpatient Referral Routine Expe cted: visit (clinic) 10/13/2022 (Approximate), Expires: 07/15/2023 documented as of this encounter Visit Diagnoses Diagnosis Apnea Sleep Obstructive - Primary Dementia Multiple Infarction (HCC) Parkinson Disease (HCC) documented in this encounter
--- OUTSIDE RECORDS SUMMARY | 2022-05-11 13:45 | XMS_ITS | Continuity of Care Document ---
:1945 Author Organization [facility] Address C/O Ra[facility] [id number] [place] [address] Phone Care Team Providers Name Role Phone VETO MALDONADO MD Unavailable Unavailable Procedures Procedure Date Subsqt Hosp-da E&m Minr Compl Init Inpt Cons New/est Mod-hi Advance Directives Directive Yes / No Effective Date File Name No Information Encounters Encounter Practice Location Reason(s) Diagnoses Date Provider Provide rs Description For Visit Copied on Encounter Subsqt Hosp-da [facility], [facility] No TAY TRENT Referri ng E&m Minr Compl [facility] Information -2006 [facility] Pro vider: [id number], [address] [facility], [facility] [address], [place] [id number], [place], [place], [place] [address] , [facility]33, . [place], tel: tel: [phone]. [phone] tel: [phone] Init Inpt Cons [facility], C/O [facility] No ICOCHEA Referri ng New/est Mod-hi Raulito [place] Information -2006 JOVANNY. Prov ider: [address] [id number], , [address], [address] [facility], [place], [place], [place], [place] [id number], [id number], [place] [address] , [facility]. [place], [place], tel: tel: [phone]. [phone] tel:[phone] Family History Family Member Type Diagnosis Age [...]
--- OUTSIDE RECORDS SUMMARY | 2022-05-11 13:45 | XMS_ITS | Continuity of Care Document ---
:1945 Author Organization [facility] Address [address] [place] [address] Phone Care Team Providers Name Role Phone [facility] Ophthalmology MD, ASC Unavailable Unavai lable Allergies, Adverse Reactions, Alerts Substance Reaction Status Criticality Sulfa (Sulfonamide Antibiotics) rash Active No Information PENICILLIN rash Active No Information Medications Medication Instructions Dosage Effective Dates Status Comment s (start - stop) Gpbo-Gmjp-Nxkvw Apply one drop to - Active 1%/0.5%/.01% [...] Description For Visit Copied [facility] Encounter [facility] [place] [facility] [place] [facility] [place] Information Ophthalmology Pro vider: Ophthalmic Ophthal 2 ASC. [address] [place] Surgery, ASC ST., IFEOMA. Dave W , 2054 B, [address]54. IFEOMA B, [place], [place], Street N, [place], [id number]. [facility] [place], tel:[phone] [place] , [phone], [phone]. [place] tel: tel:[phone] [place] [address] [place] [facility] [place] Information Ophthalmology Pro vider: Ophthalmic Ophthal 2 ASC. [address] [place] Surgery, ASC ST., IFEOMA. Dave W , [address]54 B, Saint [address] IFEOMA B, [place], [place], Street N, [place], [id number]. [facility] [place], tel:[phone] [place], [place] , [id number], 620 [id number]. [place] tel: tel:[phone] [place] [facility] [place] [facility] [place] Information Ophthalmology Pro vider: Ophthalmic Ophthal 9 ASC. [address] [place] Surgery, ASC ST., IFEOMA. Dave W , [address]54 B, Saint [address] IFEOMA B, [place], Street N, [place], [id number]. [facility] [place], tel:[phone] [place] , [phone], [phone]. [place] tel: tel:[phone] [place] [facility] [place] Information Ophthalmology Pro vider: Ophthalmic Ophthal 9 ASC. [address] [place] Surgery, ASC ST., IFEOMA. Dave W , 2054 B, Saint 2054 . [facility] B, [place], [place], Street N, [place], [id number]. [facility], tel:[phone] [place] , [id number], [facility] [id number]. tel:[phone] tel:[phone] [facility] No Dave Timoteo. [facility] [place] Information [address], Surgery, ASC [place], 2054 [place], [id number], [facility], . [place], tel:[phone] [place], [phone], [place] tel:[phone] Family History Family Member Type Diagnosis Age At Onset No Information Payers Payer name Insurance type Covered democrat ID Authorization(s ) [facility] [id number] Social History Type Description Quantity Date Captured [...]
--- OUTSIDE RECORDS SUMMARY | 2022-05-11 13:45 | XMS_ITS | Encounter Summary ---
:1945 Author Organization [facility] Address [address] [place] [address] Care Team Providers Name Role Phone Unavailable Primary Care Provider Unavailable Reason for Referral Outpatient (Routine) - Closed Specialty Diagnoses / Procedures Referred By Contact Refer red To Contact Neurology Cameron Poe M.D ., [facility] Region [address] [place] [address] Referral ID Status Reason Start Date Expiration Date Visits Requ ested Visits Authorized [id number] Closed 02/03/2022 02/03/2023 1 1 Reason for Visit Reason Comments Central Sleep Apnea Vascular dementia Ref. Dr. Komal connolly [facility] Appointment Request (Routine) - Closed Specialty Diagnoses / Procedures Referred By Contact Refer red To Contact Neurology Referral ID Status Reason Start Date Expiration Date Visits Requ ested Visits Authorized [id number] Closed 01/27/2022 01/27/2023 1 Encounter Details Date Type Department Care Team Description 02/03/2022 Comprehensive Visit Department of Cameron Poe Multiple Infarction (HCC) (Primary Dx); Neurology in [place], Apnea Sleep [place] M.P.H. [address] [place] [address] [address] [facility] [address] [place], [place] [phone] Social History Tobacco Use Types Packs/Day [...] that and I agreed to do that. Aragon Sleepiness Score: Seven MEDICAL HISTORY No past [...] Name Type Priority Associated Diagnoses Order [facility] Neurology office Outpatient Referral Routine Expe cted: visit (clinic) 04/06/2022 (Approximate), Expires: 05/06/2023 documented as of this encounter Visit Diagnoses Diagnosis Dementia Multiple Infarction (HCC) - Elisabet cam Apnea Sleep Obstructive documented in this encounter
--- OUTSIDE RECORDS SUMMARY | 2022-05-11 13:45 | XMS_ITS | Continuity of Care Document ---
:1945 Author Organization [facility] Address [address] [place] [phone] Phone Care Team Providers Name Role Phone [...] Visit Copied on Encounter St [address] [place] No Dave Eye Eye Information -2021. 2054 Clinic, Clinic, [address], [place], [place], [facility] [id number], [place], [place], [place]. [id number], tel:[phone] [place] [phone] tel:[phone] [place] [address] [place] Referring Eye [place] Ophthal Information -2021. 2054 Provid er: Clinic, ASC [address], [facility], [place], [place], Clinic 308 [facility] [id number], [address] [place], [place], [place]. Denis 110, [id number], tel:[phone] Cold [id number] [place], [place], tel:[phone]. [phone] tel:[phone] [place] [address] [place] Referring Eye [place] Ophthal Information -2021. 2054 Provid er: Clinic, ASC [address], [place], [place], Clinic 308 [facility] [id number], [address] [place], [place], [place]. Denis 110, [id number], tel:[phone] [place] [id number] [place], [place], tel:[phone]. [phone] tel:[phone] OFFICE/OUTPAT St [address] [place] decreased PCO-OSDrusen Dave emerson IENT VISIT, Eye Eye vision ( -2021. 2054 Pro vider: EST Clinic, Clinic, (chief ) of macula, [address] complaint) left eye Street N, [place], [place], Clinic 308 [facility] [id number], [address] [place], [place], [place]. Denis 110, [id number], tel:[phone] [place] [id number] [place], [place], tel:[phone]. [id number] tel:[phone] [place] [address] [place] no No Dave Referring Eye Eye complaints Information -2018el. 2054 Provid er: Clinic, Clinic, (chief robbi Acosta [address] N, W, [address]54 Street ed/moxi/nepa [facility], f qid (chief [place], [place], N, [facility] complaint) [id number], [place], [place], [place], [place]. [id number]. [id number], tel:[phone] tel:[phone] 2 [place] [phone] [id number] tel:[phone] [place] [address] [place] Dave Referring Eye [place] Ophthal Information -2019 Timoteo. 2054 Provid er: Clinic, [facility] Dave [address], W, [address], [place], N, [facility] [id number], [place], [place], [place]. [id number]. [id number], tel:+[phone] tel:[phone] 2 [place] [phone] [phone] tel:[phone] OFFICE/OUTPAT St [place] blurry Cat-combined- Dave Re ferring IENT VISIT, Eye Eye vision ODCat-Pseudop -2018. 2054 Pro vider: EST Clinic, Clinic, (chief jhonathana Timoteo Dave [address] complaint) Street N, W, [address], [place], N, [facility] [id number], [place], [place], [place]. [id number]. [id number], tel:+[phone] tel:[phone] 2 [place] [phone] tel:[phone] [place] [address] [place] No Dave Referring Eye Eye Information -2018el. 2054 Provider: Clinic, Clinic, [facility] Dave [address], W, [address], [place], N, [facility] [id number], [place], [place], [place]. [id number]. [id number], tel:+[phone] tel:[phone] 2 [place] [phone] tel:[phone] [place] [address] [place] No Dave Referring Eye Eye Information -2019 Timoteo. 2054 Provider: Clinic, Clinic, [facility] Dave [address], W, [address] [place], [place], N, [place] [id number], [place], [place], [place]. [id number]. [id number], tel:[phone] tel:[phone] [place] [phone] tel:[phone] [place] [address] [place] vision is No Dave Referring Eye Eye improved Information -2018el. 2054 Provider : Clinic, Clinic, (chief Timoteo Acosta [address] N, W, [address] Street pain or [facility], discomfort [place], N, [facility] Saint (chief [id number], [place], [place], complaint)pr [place]. [id number] 8. [id number], ed/moxi/nepa tel:[phone] tel:[phone] [place] f QID (chief [phone] tel:[phone] complaint) [id number] St [place] [address] [place] Dave Referring Eye [place] Ophthal Information -2018el. 2054 Provid er: Clinic, ASC [facility] [address], [facility], Street [facility], [place], [place], Clinic 308 [facility] [id number], [address] [place], [place], [place]. Denis 110, [id number], tel:[phone] [facility] [id number] [place], [place], tel:[phone]. [id number] tel:[phone] OFFICE/OUTPAT [address] [place] blurry Cat-combined- Dave jo IENT VISIT, Eye Eye vision OSCat-combine -2018. 2054 Pro vider: NEW Clinic, Clinic, (chief mohsen-E[facility] 20[address] complaint) (degenerative Street N, Fem rite Huong, Street ) of macula, [facility], bilateral [place], [place], Clinic 308 [facility] [id number], [address] [place], [place], [place]. Denis 110, [id number], tel:[phone] Cold [place] [id number] [place], [place], tel: [phone] tel:[phone] [facility] No Dave Referring Eye Eye Information -2018 Timoteo. 2054 Provider: Clinic, Clinic, Timoteo Acosta [address] [place] N, W, 2054 [facility] [place], [place], [facility] [id number], [place], [place], [place], [place]. [id number]. [id number], tel: tel:[phone] tel:[phone] Family History Family Member Type Diagnosis Age At Onset No Information Payers Payer name Insurance type Covered libertarian ID Authorization(s ) [facility] [id number] Social History Type Description Quantity Date Captured [...] and near detail. [facility] due to the glare of headlights. [...]
--- OUTSIDE RECORDS SUMMARY | 2022-05-11 13:45 | XMS_ITS | Clinical Summary ---
:1945 Author Organization [facility] Address [address] [place] [address] Care Team Providers Name Role Phone Unavailable Primary Care Provider Unavailable Source Comments Patient records contain information from all sites at [facility]. For routine questions regarding patient records, call [phone] during business hours, M-F 8:00 AM - 5:00 PM Central Time. Record requests for emergency care only can be directed to [phone] at any time.[facility] Allergies Active Allergy Reactions Severity Noted Date Comments Penicillin G Hives 02/03/2022 Sulfa (Sulfonamide Antibiotics) Rash 2 Medications Medication Sig Dispensed Refills Start Date [...] 25 mcg by 0 Active vitamin D3, 25 mcg mouth daily. (1,000 Unit) tablet cetirizine (ZyrTEC) Chew 10 mg as 0 Active 10 mg chewable tablet needed for allergies. polyethylene glycol Take 17 g by mouth 0 Active (MIRALAX) 17 gram daily. Dissolve powder packet each 17 g dose in 240 mLs (8 ounces) of beverage. DME CPAP BiPAP autoSV Advanced or VPAP adapt SV auto 0 02/22/2019 Active Max EPAP: 15 Min EPAP: 7 Max PS: 15 Min PS: 0 magnesium hydroxide Take 30 mL by 0 Active 400 mg/5 mL mouth. suspension DUCODYL, BISACODYL, Take by mouth. 0 Active ORAL carbidopa-levodopa Take 1 tablet by 90 tablet 11 04/14/2022 Active (SINEMET) 25-100 mg mouth 3 (three) per tablet times a day. Active Problems Problem Noted Date Parkinson Disease 04/14/2022 Dementia Multiple Infarction 02/04/2022 Apnea Sleep Obstructive 02/04/2022 Encounters Date Type Specialty Care Team Description 04/14/2022 Office Visit Neurology Cameron Poe M.D., Apnea Sleep Obstructive (Primary Dx); M.P.[facility]. Dementia Multip le Infarction (HCC); Parkinson Disea se (HCC) from Last 3 Months Social History Tobacco [...] 3.1 oz) 04/14/2022 1:14 PM CDT Height 184 cm (6' 0.44) 02/03/2022 2:05 PM CDT Body Mass Index 26.55 02/03/2022 2:05 PM CDT Plan of Treatment Health Maintenance Due Date Last Done Comments Creatinine Level 1945 Hepatitis C Screening 1945 Potassium Level 1945 Sodium Level 1945 Zoster Vaccines (2 of 3) 03/25/2010 01/28/2010 Fall Risk Screen (Annual) 07/12/2021 COVID-19 Vaccine (5 - Booster for 12/30/2021 11/04/2021, , Pfizer series) 09/05/2020, Additional history exists DTaP,Tdap,and Td Vaccines (2 - Td 08/21/2023 08/21/2013 or Tdap) Pneumococcal vaccine (65+ years) Completed 08/28/2016, , 01/28/2010 Influenza Vaccine Completed 04/13/2022, 03/25/2021, 03/12/2020, Additional history exists Insurance Payer Benefit Plan Subscriber ID Effective Phone Address Typ e / Group Dates [facility] [id number] 2015-Prese [phone] [address] Indemnity [facility] RETIREE nt [address] [place] [address]
--- NOTE | 2022-05-11 14:00 | CRLHL7_ITS ---
For Patients: As a result of the Century Cures Act, medical imaging exams and procedure reports are released immediately into your electronic medical record. You may view this report before your referring provider. If you have questions, please contact your health care provider. Indication: HX THORACIC AORTA ANEURYSM Technique: CTA chest. 95 cc Isovue 370 intravenous contrast. Please note that all CT scans at this facility use dose modulation, iterative reconstruction, and/or weight-based dosing when appropriate to reduce radiation dose to as low as reasonably achievable. Comparison: None Findings: 5 millimeter nodule right middle lobe, 5/115. Mild dependent areas of scarring bilaterally. No pulmonary edema, pneumothorax or infiltrate. No pleural effusion. The visualized thyroid gland is normal. No mediastinal, hilar or axillary adenopathy. No pulmonary embolism. Adrenal glands normal. Spleen unremarkable. Fatty liver. Cardiomegaly. Tortuosity of the descending thoracic aorta. No aortic dissection. Ascending aorta measures 4.5 x 4.3 cm. No fractures present. Mild scarring in both lung apices. Impression: Ascending aortic aneurysm measuring 4.5 x 4.3 cm. Cardiomegaly and tortuosity of the descending thoracic aorta. Patchy areas of scarring bilaterally. 5 millimeter right middle lobe nodule. Optional follow-up CT in 1 year. Please note that all CT scans at this facility use dose modulation, iterative reconstruction, and/or weight-based dosing when appropriate to reduce radiation dose to as low as reasonably achievable. Dictated by Kofi Waller MD @ 05/12/2022 11:30:32 AM (Electronically Signed)
[2022-05-11 14:16] LABS: Creatinine* 0.8 mg/dL (0.5-1.5); Estimated Glomerular Filt Rate 91 ml/min
== END 2022-05-11 13:42 | disposition home or self-care (01) ==
LOC: CT 13:43
PROVIDERS: PCP Family Medicine; Visit Provider Internal Medicine Cardiovascular Disease
DX: I48.91 Unspecified atrial fibrillation (principal); I71.21 Aneurysm of the ascending aorta, without rupture; I51.7 Cardiomegaly; I48.92 Unspecified atrial flutter
CPT/HCPCS: 36415; 71260; 82565; Q9967

== ENCOUNTER 2022-05-22 12:19 | Outpatient (REF) | payer BC, SELFPAY ==
--- OUTSIDE RECORDS SUMMARY | 2022-05-22 12:47 | XMS_ITS | Continuity of Care Document ---
:1945 Author Organization [facility] Address [address] [place] [address] Phone Care Team Providers Name Role Phone [...] Visit Copied on Encounter St [address] [place] No Dave Eye Eye Information -2021. 2054 Clinic, Clinic, [address], [place], [place], [facility] [id number], [place], [place], [place]. [id number], tel:[phone] [place] [phone] tel:[phone] [place] [address] [place] Dave Referring Eye [place] Ophthal Information -2021. 2054 Provid er: Clinic, ASC [address], [facility], [place], [place], Clinic 308 [facility] [id number], [address] [place], [place], [place]. Denis 110, [id number], tel:[phone] Cold 1892561 [place], [place], tel:[phone]. [id number] tel:[phone] [place] [address] [place] Dave Referring Eye [place] Ophthal Information -2021. 2054 Provid er: Clinic, ASC [address], [place], [place], Clinic 308 [facility] [id number], [address] [place], [place], [place]. Denis 110, [id number], tel:[phone] Cold [place] [id number] [place], [place], tel:[phone]. 5970184 tel:[phone] OFFICE/OUTPAT St [address] [place] decreased PCO-OSDrusen Dave emerson IENT VISIT, Eye Eye vision ( -2021. 2054 Pro vider: EST Clinic, Clinic, (chief ) of macula, [address] complaint) left eye Street N, [place], [place], Clinic 308 [facility] [id number], [address] [place], [place], [place]. Denis 110, [id number], tel:[phone] Cold [place] 3184130 [place], [place], tel:[phone]. 0801338 tel:[phone] [place] [address] [place] no No Dave Referring Eye Eye complaints Information -2018el. 2054 Provid er: Clinic, Clinic, (chief robbi Acosta [address] N, W, [address]54 Street ed/moxi/nepa [facility], f qid (chief [place], [place], N, [facility] complaint) [id number], [place], [place], [place], [place]. [id number]. [id number], tel:+320 tel:[phone] 2 US [phone] 785990 tel:[phone] [place] [address] [place] No Dave Referring Eye [place] Ophthal Information -2019 Timoteo. 2054 Provid er: Clinic, [facility] [address], W, [address], [place], [place], N, [facility] [id number], [place], [place], [place]. [id number]. [id number], tel:+320 tel:[phone] 2 [place] 1138540 783520 tel:[phone] OFFICE/OUTPAT [address] [place] [address] [place] blurry Cat-combined- Dave Re ferring IENT VISIT, Eye Eye vision ODCat-Pseudop -2018. 2054 Pro vider: EST Clinic, Clinic, (chief jhonathana Timoteo Dave [address]) Street N, W, [address], [place], N, [facility] [id number], [place], [place], [place]. [id number]. [id number], tel:+320 tel:[phone] 2 US 7347528 981736 tel:[phone] [place] [address] [place] No Dave Referring Eye Eye Information -2018el. 2054 Provider: Clinic, [facility], [facility] Dave [address], W, [address], [place], N, [facility] [id number], [place], [place], [place]. [id number]. [id number], tel:+320 tel:[phone] 2 US [phone] 124957 tel:[phone] [place] [address] [place] No Dave Referring Eye Eye Information -2019 Timoteo. 2054 Provider: Clinic, [facility], [facility] Dave [address], W, [address] [place], [place], N, [facility] [id number], [place], [place], [place]. [id number]. [id number], tel:+[phone] tel:[phone] 2 [place] 8749764 911664 tel:[phone] [place] [address] [place] vision is No Dave Referring Eye Eye improved Information -2018el. 2054 Provider : Clinic, Clinic, (chief Timoteo Acosta [address] N, W, [address] Street pain or [facility], discomfort [place], N, [facility] Saint (chief [id number], [place], [place], [place], complaint)pr [place]. [id number] 8. [id number], ed/moxi/nepa tel:[phone] tel:[phone] [place] f QID (chief [id number] [phone] tel:[phone] complaint) [id number] St [place] [address] [place] No Dave Referring Eye [place] Ophthal Information -2018el. 2054 Provid er: Clinic, ASC [facility] [address], [facility], Street [facility], [place], [place], Clinic 308 [facility] [id number], [address] [place], [place], [place]. Denis 110, [id number], tel:[phone] [facility] 3437542 [place], [place], tel:[phone] 54010. 8333233 tel:[phone] OFFICE/OUTPAT [address] [place] [address] [place] blurry Cat-combined- Dave jo IENT VISIT, Eye Eye vision OSCat-combine -2018. 2054 Pro vider: NEW Clinic, Clinic, (chief mohsen-Ef[facility] 2054 [address] complaint) (degenerative Street N, Fem rite Huong, Street ) of macula, [facility], bilateral [place], [place], Clinic 308 [facility] [id number], [address] [place], [place], [place]. Denis 110, [id number], tel:[phone] Cold [place] 6175454 [place], [place], tel: [phone]. [phone] tel:[phone] [facility] No Dave Referring Eye Eye Information -2018 Timoteo. 2054 Provider: Clinic, Clinic, Timoteo Acosta [address] N, W, 2054 [facility] [place], [place], [facility] [id number], [place], [place], [place], [place]. [id number]. [id number], tel: tel:[phone] 679092 tel:[phone] Family History Family Member Type Diagnosis Age At Onset No Information Payers Payer name Insurance type Covered constitution party ID Authorization(s ) [facility], [place] [id number] Social History Type Description Quantity Date Captured [...] and near detail. He finds driving at [facility] difficult due to the glare of [...]
--- OUTSIDE RECORDS SUMMARY | 2022-05-22 12:47 | XMS_ITS | Clinical Summary ---
:1945 Author Organization [facility] Address [address] [place] [address] Care Team Providers Name Role Phone Unavailable Primary Care Provider Unavailable Source Comments Patient records contain information from all sites at [facility]. For routine questions regarding patient records, call [phone] during business hours, M-F 8:00 AM - 5:00 PM Central Time. Record requests for emergency care only can be directed to [phone] at any time.[facility] Allergies Active Allergy Reactions Severity Noted [...] 03/25/2010 01/28/2010 Fall Risk Screen (Annual) 07/12/2021 DTaP,Tdap,and Td Vaccines (2 - Td 08/21/2023 08/21/2013 or Tdap) Pneumococcal vaccine (65+ years) Completed 08/28/2016, , 01/28/2010 Influenza Vaccine Completed 04/13/2022, 03/25/2021, 03/12/2020, Additional history exists COVID-19 Vaccine Completed 05/07/2022, 11/04/2021, 04/29/2021, Additional history exists Insurance Payer Benefit Plan Subscriber ID Effective Phone Address Typ e / Group Dates [facility] [id number] 2015-Prese [phone] [address] Indemnity [facility] RETIREE nt [address] [place] [address]
--- OUTSIDE RECORDS SUMMARY | 2022-05-22 12:47 | XMS_ITS | Continuity of Care Document ---
:1945 Author Organization [facility] Address C/O Raulito [facility] [address] [place] [address] Phone Care Team Providers Name Role Phone [...] TAY TRENT Referri ng E&m Minr Compl [facility] Information -2006 [facility] Pro vider: [address] [id number], [address] [facility], [facility] [address], [place] [id number], [place], [place], [place] [address] , [facility], . [place], [place], tel: tel: [phone]. [phone] tel: [phone] Init Inpt Cons [facility], C/O PPSF [facility] No ICOCHEA Referri ng New/est Mod-hi Raulito [place] Information -2006 JOVANNY. Prov ider: [address] [place] [id number], , [address], [address] [facility], [place], [place], [place] [id number], [id number], [place] [address] , [facility]. [place], [place], tel: tel: [phone]. [phone] tel:[phone] Family History Family Member Type Diagnosis Age At Onset No Information Payers Payer name Insurance type Covered alliance party ID Authorization(s ) No Information Social [...]
--- OUTSIDE RECORDS SUMMARY | 2022-05-22 12:47 | XMS_ITS | Encounter Summary ---
:1945 Author Organization [facility] Address [address] [place] [address] Care Team Providers Name Role Phone Unavailable Primary Care Provider Unavailable Reason for Referral Outpatient (Routine) - Authorized Specialty Diagnoses / Procedures Referred By Contact Refer red To Contact Neurology Cameron Poe M.D ., M.P.H. [facility] [address] [place] [address] Referral ID Status Reason Start Date Expiration Date Visits V isits Requested Authorized [id number] Authorized 04/14/2022 04/13/2025 1 1 Reason for Visit Reason Comments Follow-up CPAP, Dementia Outpatient (Routine) - Closed Specialty Diagnoses / Procedures Referred By Contact Refer red To Contact Neurology Cameron Poe M.D ., M.P.H. [facility] Region [address] [place] [address] Referral ID Status Reason Start Date Expiration Date Visits Requ ested Visits Authorized [id number] Closed 02/03/2022 02/03/2023 1 1 Encounter Details Date Type Department Care Team Description 04/14/2022 Office Visit Department of Cameron Poe, Apnea Slee p Obstructive (Primary Dx); Neurology in [place], M.P.H. Dementia Multiple Infarction (HCC); [place], [place] [address] [facility] Parkinson Disease (HCC) [address] [place] [address] [phone] Social History Tobacco Use Types Packs/Day Years [...] today's visit we have a download from [facility] which reveals a residual AHI [...] has degree in mathematics and worked on [employer]. 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 He has trouble remembering what he read [...] is quite careful using a walker commonly. [place] Sleepiness Score: 12 Narrative EXAM: MRI HEAD [...] hydrocephalus. The major flow voids are preserved. Wsqm-qj-rvblbxsx left frontal mild ethmoidal mucosal thickening with trace left mastoid fluid. Prior cataract surgeries. IMPRESSION: Moderate to advanced white matter T2 hyperintensities nonspecific, likely microvascular ischemic related. Mild generalized atrophy. Negative for definite superimposed active process Exam End: 02/19/20 16:03 Specimen Collected: 02/19/20 16:19 Last Resulted: 02/19/20 16:24 Received From: [facility] Result Received: 03/04/22 16:29 OBJECTIVE [...] Name Type Priority Associated Diagnoses Order S [facility] Neurology office Outpatient Referral Routine Expe cted: visit (clinic) 10/13/2022 (Approximate), Expires: 07/15/2023 documented as of this encounter Visit Diagnoses Diagnosis Apnea Sleep Obstructive - Primary Dementia Multiple Infarction (HCC) Parkinson Disease (HCC) documented in this encounter
--- OUTSIDE RECORDS SUMMARY | 2022-05-22 12:47 | XMS_ITS | Continuity of Care Document ---
:1945 Author Organization [facility] Address [address] [place] [address] Phone Care Team Providers Name Role Phone [facility] Ophthalmology MD, ASC Unavailable Unavai lable Allergies, Adverse Reactions, Alerts Substance Reaction Status Criticality Sulfa (Sulfonamide Antibiotics) rash Active No Information PENICILLIN rash Active No Information Medications Medication Instructions Dosage Effective Dates Status Comment s (start - stop) Ktaa-Ogim-Zcivy Apply one drop to - Active 1%/0.5%/.01% [...] Description For Visit Copied on Encounter [facility] [place] [facility] [place] Information Ophthalmology Pro vider: Ophthalmic Ophthal 2 ASC. [address] [place] Surgery, ASC ST., IFEOMA. Dave W , [address]54 B, [address]. IFEOMA B, [place], [place], Street N, [place], [id number]. [facility] [place], tel:[phone] [place] , [phone], [phone]. [place] tel: tel:[phone] [place] [address] [place] [facility] [place] Information Ophthalmology Pro vider: Ophthalmic Ophthal 2 ASC. [address] [place] Surgery, ASC ST., IFEOMA. Dave W , [address] B, [address] IF[address], [place], [place], Street N, [place], [id number]. [facility] [place], tel:[phone] [place], [place] , [id number], [phone]. [place] tel: tel:[phone] [place] [address] [place] [facility] [place] Information Ophthalmology Pro vider: Ophthalmic Ophthal 9 ASC. [address] [place] Surgery, ASC ST., IFEOMA. Dave W , [address] B, [address] IFE[address] B, [place], [place], Street N, [place], [id number]. [facility] [place], tel:[phone] [place] , [phone], [phone]. [place] tel: tel:[phone] [place] [facility] [place] Information Ophthalmology Pro vider: Ophthalmic Ophthal 9 ASC. [address] [place] Surgery, ASC ST., IFEOMA. Dave W , 2054 B, [address] . [facility] B, [place], [place], Street N, [place], [id number]. [facility], tel:[phone] [place] , [id number], [facility] [id number]. tel:[phone] tel:[phone] [facility] No Dave Tim[place]o. [facility] [place] Information [address]hthal[address], Surgery, ASC [place], 2054 [place], [id number], [facility], . [place], tel:[phone] [place], [id number], [place] tel:[phone] Family History Family Member Type Diagnosis Age At Onset No Information Payers Payer name Insurance type Covered libertarian ID Authorization(s ) [facility] [id number] Social History Type Description Quantity Date Captured [...]
--- OUTSIDE RECORDS SUMMARY | 2022-05-22 12:47 | XMS_ITS | Continuity of Care Document ---
:1945 Author Organization [facility] Address C/O Raulito [facility] [address] [place] [address] Phone Care Team Providers Name Role Phone VETO MALDONADO MD Unavailable Unavailable Procedures Procedure Date Subsqt Hosp-da E&m Minr Compl Init Inpt Cons New/est Mod-hi Advance Directives Directive Yes / No Effective Date File Name No Information Encounters Encounter Practice Location Reason(s) Diagnoses Date Provider Provide rs Description For Visit Copied on Encounter Subsqt Hosp-da [facility], C/O [facility] No TAY TRENT Referri ng E&m Minr Compl [facility] to [facility] Information -2006 [facility] Pro vider: [id number], [address] [facility], [facility] [address], [place] [id number], [place], [place], [place] [address] , [facility]33, . [place], [place], tel: tel: [phone]. [phone] tel: [phone] Init Inpt Cons [facility], C/O P[facility]F [facility] No ICOCHEA Referri ng New/est Mod-hi Raulito [place] Information -2006 JOVANNY. Prov ider: [address] [id number], , [address], [address] [facility], [place], [place], [place] [id number], [id number], [place] [address] , [facility]. [place], [place], tel: tel: [phone]. [phone] tel:[phone] Family History Family Member Type Diagnosis Age At Onset No Information Payers Payer name Insurance type Covered republican ID Authorization(s ) No Information Social History [...]
--- OUTSIDE RECORDS SUMMARY | 2022-05-22 12:47 | XMS_ITS | Encounter Summary ---
:1945 Author Organization [facility] Address [address] [place] [address] Care Team Providers Name Role Phone Unavailable Primary Care Provider Unavailable Reason for Referral Outpatient (Routine) - Closed Specialty Diagnoses / Procedures Referred By Contact Refer red To Contact Neurology Cameron Poe M.D ., M.P.H. [facility] Region [address] [place] [address] Referral ID Status Reason Start Date Expiration Date Visits Requ ested Visits Authorized [id number] Closed 02/03/2022 02/03/2023 1 1 Reason for Visit Reason Comments Central Sleep Apnea Vascular dementia Ref. Dr. Komal [facility] Appointment Request (Routine) - Closed Specialty Diagnoses / Procedures Referred By Contact Refer red To Contact Neurology Referral ID Status Reason Start Date Expiration Date Visits Requ ested Visits Authorized [id number] Closed 01/27/2022 01/27/2023 1 Encounter Details Date Type Department Care Team Description 02/03/2022 Comprehensive Visit Department of Cameron Poe Multiple Infarction (HCC) (Primary Dx); Neurology in [place], Apnea Sleep [place] M.P.H. [address] [place] [address] A[address] [facility] [address] [place], [place] [phone] [address] Social History Tobacco Use Types Packs/Day [...] that and I agreed to do that. [place] Sleepiness Score: Seven MEDICAL HISTORY No past [...] Name Type Priority Associated Diagnoses Order S [facility] Neurology office Outpatient Referral Routine Expe cted: visit (clinic) 04/06/2022 (Approximate), Expires: 05/06/2023 documented as of this encounter Visit Diagnoses Diagnosis Dementia Multiple Infarction (HCC) - Elisabet cam Apnea Sleep Obstructive documented in this encounter
--- OUTSIDE RECORDS SUMMARY | 2022-05-22 12:48 | XMS_ITS | Continuity of Care Document ---
:1945 Author Organization [facility] Address [address] [place] [address] Phone Care Team Providers Name Role Phone [...] Visit Copied on Encounter [facility] [address] [place] Dave Eye Eye Information -2021. 2054 Clinic, Clinic, [address], [place], [place], [facility] [id number], [place], [place], [place]. [id number], tel:[phone] tel:[phone] [place] [address] [place] Dave Referring Eye [place] Ophthal Information -2021. 2054 Provid er: Clinic, ASC [address], [facility], [place], [place], Clinic [address] [facility] [id number], [address] [place], [place], [place]. [place] [address], [id number], tel:[phone] Cold [phone] [place], [place], tel:[phone] tel:[phone] [place] [address] [place] No Dave Referring Eye [place] Ophthal Information -2021. 2054 Provid er: Clinic, ASC [address], [place], [place], Clinic [address] [facility] [id number], [address] [place], [place], [place]. [address], [id number], tel:[phone] [place] [id number] [place], [place], tel:[phone]. [id number] tel:[phone] OFFICE/OUTPAT St [facility] [place] decreased PCO-OSDrusen Dave emerson IENT VISIT, Eye Eye vision ( -2021. 2054 Pro vider: EST Clinic, Clinic, (chief ) of macula, [address] complaint) left eye Street N, [place], [place], Clinic [address] [facility] [id number], [address] [place], [place], [place]. [address], [id number], tel:[phone] Cold [place] [id number] [place], [place], tel:[phone] tel:[phone] [place] [address] [place] no No Dave Referring Eye Eye complaints Information -2018el. 2054 Provid er: Clinic, Clinic, (chief robbi Acosta [address] complaint)pr Street N, W, [address] Street ed/moxi/nepa [facility], f qid (chief [place], [place], N, [facility] complaint) [id number], [place], [place], [place], [place]. [id number]. [id number], tel:[phone] tel:[phone] [place] [phone] tel:[phone] [place] [address] [place] No Dave Referring Eye [place] Ophthal Information -2019 [address]. 2054 Provid er: Clinic, ASC [facility] Dave [address], W, [address], [place], [place], N, [facility] [id number], [place], [place], [place]. [id number]. [id number], tel:+[phone] tel:[phone] [place] [phone] tel:[phone] OFFICE/OUTPAT [address] [place] blurry Cat-combined- Dave Re ferring IENT VISIT, Eye Eye vision ODCat-Pseudop -2018. 2054 Pro vider: EST Clinic, Clinic, (chief jhonathana Timoteo Dave [address] complaint) Street N, W, [address], [place], N, [facility] [id number], [place], [place], [place]. [id number]. [id number], tel:+[phone] tel:[phone] [place] [phone] tel:[phone] [place] [address] [place] No Dave Referring Eye Eye Information -2018el. 2054 Provider: Clinic, Clinic, [facility] Dave [address], W, [address], [place], N, [facility] [id number], [place], [place], [place]. [id number]. [id number], tel:+[phone] tel:[phone] [place] [phone] tel:[phone] [place] [address] [place] No Dave Referring Eye Eye Information -2019 [address]. 2054 Provider: Clinic, Clinic, [facility] Dave [address], W, [address] [place], [place], N, [place] [id number], [place], [place], [place]. [id number]. [id number], tel:[phone] tel:[phone] [place] [phone] tel:[phone] [place] [address] [place] vision is No Dave Referring Eye Eye improved Information -2018el. 2054 Provider : Clinic, Clinic, (chief Timoteo Acosta [address] complaint)no Street N, W, [address] Street pain or [facility], discomfort [place], N, [facility] Saint (chief [id number], [place], [place], [place], complaint)pr [place]. [id number] 8. [id number], ed/moxi/nepa tel:[phone] tel:[phone] [place] f QID (chief [phone] tel:[phone] complaint) [id number] St [place] No Dave Referring Eye [place] Ophthal Information -2018el. 2054 Provid er: Clinic, ASC [facility] [address], [facility] Huong, Street [facility], [place], [place], Clinic 308 [facility] [id number], [address] [place], [place], [place]. [place] [address], [id number], tel:[phone] [facility] [id number] [place], [place], tel:[phone]. [phone] tel:[phone] OFFICE/OUTPAT [address] [place] blurry Cat-combined- Dave jo IENT VISIT, Eye Eye vision OSCat-combine -2018. 2054 Pro vider: NEW Clinic, Clinic, (chief mohsen-Efrem [facility] 2054 [address] complaint) (degenerative Street N, Fem rite Huong, Street ) of macula, [facility], bilateral [place], [place], Clinic 308 [facility] [id number], [address] [place], [place], [place]. [place] 110, [id number], tel:[phone] Cold [place] [phone] [place], [place], tel: [phone] tel:[phone] [facility] No Dave Referring Eye Eye Information -2018 Timote[address]. 2054 Provider: Clinic, Clinic, Timoteo Acosta [address] [place] N, W, 2054 [facility] [address], [place], [facility] [id number], [place], [place], [place], [place], [place]. [id number]. [id number], tel: tel:[phone] tel:[phone] Family History Family Member Type Diagnosis Age At Onset No Information Payers Payer name Insurance type Covered democrat ID Authorization(s ) [facility], [place] [id number] Social History Type Description Quantity Date Captured [...] and near detail. He finds driving at [facility] difficult due to the glare of [...]
--- OUTSIDE RECORDS SUMMARY | 2022-05-22 12:48 | XMS_ITS | Continuity of Care Document ---
:1945 Author Organization [facility] Address [address] [place] [address] Phone Care Team Providers Name Role Phone [facility] Ophthalmology MD, ASC Unavailable Unavai lable Allergies, Adverse Reactions, Alerts Substance Reaction Status Criticality Sulfa (Sulfonamide Antibiotics) rash Active No Information PENICILLIN rash Active No Information Medications Medication Instructions Dosage Effective Dates Status Comment s (start - stop) Zasl-Mrwu-Wrgyu Apply one drop to - Active 1%/0.5%/.01% [...] Description For Visit Copied on Encounter [facility] [place] Ref[facility] [place] Information Ophthalmology Pro vider: Ophthalmic Ophthal 2 ASC. [address] [place] Surgery, ASC ST., IFEOMA. Dave W , 2054 B, [address]54. IFEOMA B, [place], [place], Street N, [place], [id number]. [facility] [place], tel:[phone] [place] , [id number], 620 [id number]. [place] tel: tel:[phone] [place] Referring [facility] For [place] Information Ophthalmology Pro vider: Ophthalmic Ophthal 2 ASC. [address] [place] Surgery, ASC ST., IFEOMA. Dave W , [address]54 B, [address] IF[address] B, [place], [place], Street N, [place], [id number]. [facility] [place], tel:[phone] [place], [place] , [id number], 620 [id number]. [place] tel: tel:[phone] [place] [address] [place] Referring [facility] For [place] Information Ophthalmology Pro vider: Ophthalmic Ophthal 9 ASC. [address] [place] Surgery, ASC ST., IFEOMA. Dave W , [address]54 B, [address] IF[address] B, [place], [place], Street N, [place], [id number]. [facility] [place], tel:[phone] [place] , [id number], 620 [id number]. [place] tel: tel:[phone] [place] [address] [place] Referring [facility] For [place] Information Ophthalmology Pro vider: Ophthalmic Ophthal 9 ASC. [address]. [place] Surgery, ASC ST., IFEOMA. Dave W , 2054 B, Saint 2054 . [facility] B, [place], [place], Street N, [place], [id number]. [facility], tel:[phone] [place] , [id number], [facility] [id number]. tel:[phone] tel:[phone] [id number] [facility] No Dave Timoteo. Center For [place] Information [address], Surgery, ASC [place], 2054 [place], [id number], [facility], . [place], tel:[phone] [place], 432 [id number], [place] tel:[phone] Family History Family Member Type Diagnosis Age At Onset No Information Payers Payer name Insurance type Covered green party ID Authorization(s ) [facility] [id number] Social History Type Description Quantity Date Captured [...]
[2022-05-22 14:04] LABS: Potassium* 4.1 mmol/L (3.6-5.1)
[2022-05-22 14:07] LABS: Blood Urea Nitrogen* 17 mg/dL (7-30); Creatinine* 0.9 mg/dL (0.5-1.5); Estimated Glomerular Filt Rate 88 ml/min
== END 2022-05-22 12:20 | disposition home or self-care (01) ==
LOC: NPINS 12:19
PROVIDERS: Family Medicine; PCP Family Medicine
DX: I48.0 Paroxysmal atrial fibrillation (principal)
CPT/HCPCS: 82565; 84132; 84520

== ENCOUNTER 2022-08-25 10:53 | Outpatient (CLI) | payer BC, SELFPAY ==
[2022-08-25 11:53] LABS: Albumin* 4.2 g/dL (3.3-5.0)
[2022-08-25 11:54] LABS: Chloride* 108 mmol/L (96-114); Sodium* 143 mmol/L (135-149)
[2022-08-25 11:56] LABS: Bilirubin Total* 1.2 mg/dL (0.1-1.5); Carbon Dioxide* 29 mmol/L (20-32); Cholesterol* 102 mg/dL (90-199); Creatinine* 0.8 mg/dL (0.5-1.5); Estimated Glomerular Filt Rate 91 ml/min; Total Protein* 7.2 g/dL (6.0-8.3)
[2022-08-25 11:57] LABS: Alanine Aminotransferase* 20 U/L (4-50); Alkaline Phosphatase* 56 U/L (40-150); Aspartate Amino Transferase* 27 U/L (12-35); Blood Urea Nitrogen* 14 mg/dL (7-30); Calcium* 9.2 mg/dL (8.4-10.6); Glucose* 113 mg/dL (60-115); HDL Cholesterol* 48 mg/dL (>=40); LDL Cholesterol Calculated 39 mg/dL (<100); Triglycerides* 73 mg/dL (40-149)
[2022-08-25 12:12] LABS: Vitamin D 25 Hydroxy* 35 ng/mL (30-80)
== END 2022-08-25 10:54 | disposition home or self-care (01) ==
PROVIDERS: PCP Family Medicine; Visit Provider Family Medicine
DX: Z00.00 Encounter for general adult medical examination without abnormal findings (principal); I10 Essential (primary) hypertension; I48.91 Unspecified atrial fibrillation; G20 Parkinson's disease; Z13.6 Encounter for screening for cardiovascular disorders; Z86.39 Personal history of other endocrine, nutritional and metabolic disease
CPT/HCPCS: 80053; 80061; 82306

== ENCOUNTER 2022-11-18 17:34 | Outpatient (REF) | payer BC, SELFPAY ==
[2022-11-18 18:07] LABS: Potassium* 4.3 mmol/L (3.6-5.1)
[2022-11-18 18:10] LABS: Blood Urea Nitrogen* 12 mg/dL (7-30); Creatinine* 0.9 mg/dL (0.5-1.5); Estimated Glomerular Filt Rate 88 ml/min
== END 2022-11-18 17:35 | disposition home or self-care (01) ==
LOC: NPINS 17:34
PROVIDERS: PCP Family Medicine; Visit Provider Family Medicine
DX: G20 Parkinson's disease (principal); F02.80 Dementia in other diseases classified elsewhere, unspecified severity, without behavioral disturbance, psychotic disturbance, mood disturbance, and anxiety; I48.91 Unspecified atrial fibrillation; Z79.01 Long term (current) use of anticoagulants; G47.31 Primary central sleep apnea; Z12.5 Encounter for screening for malignant neoplasm of prostate; I71.9 Aortic aneurysm of unspecified site, without rupture; I10 Essential (primary) hypertension; Z85.46 Personal history of malignant neoplasm of prostate
CPT/HCPCS: 82565; 84132; 84153; 84520

== ENCOUNTER 2022-12-18 11:10 | Outpatient (REF) | payer BC, SELFPAY ==
[2022-12-18 12:01] LABS: Potassium* 3.9 mmol/L (3.6-5.1)
[2022-12-18 12:04] LABS: Blood Urea Nitrogen* 15 mg/dL (7-30); Creatinine* 0.8 mg/dL (0.5-1.5); Estimated Glomerular Filt Rate 91 ml/min
== END 2022-12-18 11:11 | disposition home or self-care (01) ==
LOC: NPINS 11:10
PROVIDERS: PCP Family Medicine; Visit Provider Family Medicine
DX: I10 Essential (primary) hypertension (principal); I48.91 Unspecified atrial fibrillation; Z86.39 Personal history of other endocrine, nutritional and metabolic disease
CPT/HCPCS: 82565; 84132; 84520

== ENCOUNTER 2023-01-08 16:10 | Emergency (ER) | payer BC, SELFPAY ==
[2023-01-08 16:21] VITALS: BP 154/80; PULSE 65; RESP 18; TEMP 36.5; O2SAT 65; BMI 25.1
--- NOTE | 2023-01-08 16:33 | ED_ITS ---
HPI - Fall General Time Seen by Provider: 16:33 Date Seen: 01/08/23 Chief Complaint: Fall/Minor Trauma Stated Complaint: Fall, shoulder and knee injuries Time Seen by Provider: 01/08/23 16:32 Source: patient and RN notes reviewed Mode of arrival: wheelchair Limitations: no limitations History of Present Illness HPI Narrative: Patient is a 77-year-old male with underlying Parkinson's who tripped with the tried of his slippers on the carpet today. He scraped his right knee, his placed a Band-Aid over it. His believes he landed on the left shoulder. He denies hitting his head, no neck or back pain. There was no loss of consciousness. Denies any numbness tingling. He states he cannot lift his left arm. His describes him is quite stoic and when he continued to complain of pain in left shoulder, decided to bring him in. This happened around 2 or 230 today, they tried ice and Tylenol before coming in. No difficulty breathing, no chest pain, no chest wall pain. Denies any pain the clavicle on this side. Hurts more on the left shoulder area. He could stay and and walk on his right knee, does not hurt within the knee. MD complaint: fall Onset (ago): hour(s) Fall from: standing Place fall occurred: home Loss of consciousness: No Related Data Home Medications Medication Instructions Recorded Confirmed dofetilide 250 mcg capsule 250 mcg PO BID 01/21/22 12/18/22 carbidopa 10 mg-levodopa 100 mg 1 tab PO TID 04/24/22 12/18/22 tablet (Sinemet) Previous Rx's Medication Instructions Recorded donepezil 10 mg tablet 10 mg .Route QDAY #90 tabs 09/02/22 lisinopril 10 mg tablet 10 mg PO QDAY #90 tabs 10/14/22 memantine 10 mg tablet 10 mg PO BID #180 tabs 11/18/22 warfarin 5 mg tablet 5 mg PO QDAY #30 tabs 12/02/22 Allergies Allergy/AdvReac Type Severity Reaction Status Date / Time Penicillins Allergy Intermediate Rash Verified 01/08/23 16:25 Sulfa (Sulfonamide Allergy Rash Verified 01/08/23 16:25 Antibiotics) Review of Systems Status of ROS: Reports: 6 or more systems reviewed and unremarkable except as noted in History and below PFSH PFSH Medical History Sleep apnea treated with nocturnal BiPAP ?G47.30 - Sleep apnea, unspecified (ICD-10) Health care directive on file ?Z78.9 - Other specified health status (ICD-10) Prostate cancer (2017) ?C61 - Malignant neoplasm of prostate (ICD-10) Vascular dementia (2017) ?F01.50 - Vascular dementia without behavioral disturbance (ICD-10) Central sleep apnea (2017) ?G47.31 - Primary central sleep apnea (ICD-10) Spinal stenosis of lumbar region ?M48.061 - Spinal stenosis, lumbar region without neurogenic claudication (ICD-10) Primary hypertension ?I10 - Essential (primary) hypertension (ICD-10) 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 ?Z79.01 - intermodal customer service (current) use of anticoagulants (ICD-10) History of vitamin D deficiency ?Z86.39 - Personal history of other endocrine, nutritional and metabolic disease (ICD-10) History of malignant neoplasm of prostate (2018) ?Z85.46 - Personal history of malignant neoplasm of prostate (ICD-10) Esophageal dysmotility ?K22.4 - Dyskinesia of esophagus (ICD-10) Atrial fibrillation and flutter (2017) ?I48.91 - Unspecified atrial fibrillation (ICD-10) ?I48.92 - Unspecified atrial flutter (ICD-10) Ascending aortic aneurysm (2016) ?I71.2 - Thoracic aortic aneurysm, without rupture (ICD-10) Surgical History History of external beam radiation therapy (~2016) ?Z92.3 - Personal history of irradiation (ICD-10) History of vasectomy ?Z98.52 - Vasectomy status (ICD-10) History of surgical removal of ganglion cyst ?Z98.890 - Other specified postprocedural states (ICD-10) History of colonoscopy (02/27/20) ?Z98.890 - Other specified postprocedural states (ICD-10) History of cataract extraction (2018) ?Z98.49 - Cataract extraction status, unspecified eye (ICD-10) Family History Father Oral cancer Maternal Grandfather Stomach cancer Mother Dementia, Onset Age: 70 Paternal Grandfather Diabetes Social History Narrative: , 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/ [employer], 2 children, lives in independent living non smoker, quit 1979, 10 pack years alcohol 3 / week exercise 3/ week, 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, [employer] Smoking Status: Former smoker How often do you have a drink containing alcohol: 4 or more times a week AUDIT-C Alcohol total score: 4 Non-prescribed substance use: denies use Little interest or pleasure in doing things: not at all Feeling down, depressed, or hopeless: not at all Exam Const: Vital Signs, click to edit/add: Vital Signs - 24 hr 01/08/23 16:21 Temperature 97.7 F Pulse Rate [Right Pulse Oximeter] 65 Respiratory Rate 18 Blood Pressure [Ri ght Upper Arm] 154/80 H Pulse Oximetry 65 L Oxygen Delivery Me thod Room Air Documenting provider has reviewed patient's vital signs: yes Common normals: no apparent distress, average body habitus, oriented x3, no limitations, healthy appearing and alert General appearance: cooperative, comfortable, well kempt and well developed Other: Flat affect/masked facies consistent with his Parkinson's. HENMT: Common normals: normocephalic, head/scalp atraumatic, hearing grossly normal bilaterally and external nose normal Head and scalp: normal to inspection (atraumatic scalp/face), normocephalic and atraumatic Nose: external nose normal Eye: Common normals: PERRL, EOMs intact bilaterally, conjunctivae normal and no scleral icterus Conjunctiva: conjunctiva(e) normal Pupil: PERRL Neck & C-Spine: Common normals: full ROM (no midline tenderness), no l ymphadenopathy and supple Chest: Common normals: palpation of chest normal Resp: Common normals: normal respiratory effort, no retractions, no use of accessory muscles and clear to auscultation bilaterally Auscultation: clear to auscultation bilaterally Cardio: Common normals: regular rate, regular rhythm, S1 normal heart sound, S2 normal heart sound, no gallops, no clicks and no murmurs Rate: regular rate Rhythm: regular rhythm Heart sounds: S1 normal and S2 normal GI: Common normals: soft to palpation and non-tender Palpation: soft Back & Pelvis: Common normals: no thoracic nor lumbar tenderness Extremity: Other: Has a swath for a left arm splint. Has distal normal sensation of his left fingers, normal cap refill. Fingers and hand are atraumatic and nontender. He is nontender when I palpate over his left wrist, no swelling, good range of motion. He is nontender over his left elbow over the epicondyles and olecranon, no effusion. Can do some gentle flexion extension supination pronation about the elbow without any pain. He hurts in his left shoulder. The shoulder joint feels a bit distorted, do not feel the normal contour when I compare to the right. It is hurting in the shoulder area. Clavicle on the left side palpates nontender. Does not seem to have any distal humerus pain when I palpate the arm. His right knee has a very superficial abrasion anteriorly, bandages over this and removed to look underneath it. Just a superficial nonbleeding abrasion. No joint line tenderness of the knee. Patella seems to be in normal alignment. Neuro: Kohler Coma Scale: document GCS findings Lorraine coma scale eye opening: Spontaneous (4) Lorraine coma scale verbal response: Orientated (5) Kohler coma scale motor response: Obey commands (6) Lorraine coma scale total score: 15 Common normals: oriented x3 Sensorium/orientation: alert Psych: Appearance: well kempt Course Course Hospital Course: Patient is on Coumadin, he is adamant that he did not hit his head. Did consider head CT imaging being he is anticoagulated but he is adamant that he did not hit his head. Will image his left shoulder with x-ray. Possible anterior dislocation verses fracture of the humerus proximally is by differential here. Consultations Consultation #1: Have reviewed with Apolinar QUIÑONEZ from Orthopedics. He recommends a shoulder immobilizer, follow up with Orthopedics, will give the phone number to call next week. Time: 18:07 Vital Signs Vital signs: Initial Vital Signs Temperature 97.7 F 01/08/23 16:21 Temperature Source Temporal Artery Scan 01/08/23 16:21 Pulse Rate 65 01/08/23 16:21 Pulse Rhythm Regular 01/08/23 16:21 Pulse Strength 3+ Normal 01/08/23 16:21 Respiratory Rate 18 01/08/23 16:21 Blood Pressure 154/80 H 01/08/23 16:21 Blood Pressure Mean 104 01/08/23 16:21 Blood Pressure Position Sitting 01/08/23 16:21 Pulse Oximetry 65 L 01/08/23 16:21 Oxygen Delivery Method Room Air 01/08/23 16:21 Vital Signs Temperature 97.7 F 01/08/23 16:21 Pulse Rate 65 01/08/23 16:21 Respiratory Rate 18 01/08/23 16:21 Blood Pressure 154/80 H 01/08/23 16:21 Pulse Oximetry 65 L 01/08/23 16:21 Oxygen Delivery Method Room Air 01/08/23 16:21 Temperature 97.7 F 01/08/23 16:21 Pulse Rate 65 01/08/23 16:21 Respiratory Rate 18 01/08/23 16:21 Blood Pressure 154/80 H 01/08/23 16:21 Pulse Oximetry 65 L 01/08/23 16:21 Oxygen Delivery Method Room Air 01/08/23 16:21 MDM - Fall Imaging Data XR left shoulder: Attestation: I have reviewed the pertinent imaging results. My impression: See fracture probably at the base of the humeral head. Await Radiology over- read. Radiologist's impression: Patient: CRISTIAN BLEDSOE Facility:?[facility] Patient ID:?[id number] Site Patient ID:?[id number]. Site :?[id number] Study:?XRay Shoulder Left -01/08/2023 5:03:18 PM Ordering Physician:Latisha Mi Final Report: Indication: Fall, pain Technique: Three views Comparison: None Findings/Impression: The arm is held in persistent internal rotation limiting evaluation of the humeral head/neck. On these views there does appear to be some cortical offset at the posterior cortex as well some faint sclerosis at the surgical neck of the humerus. This appearance is suspicious for a nondisplaced/impacted surgical neck fracture. No evidence of dislocation. Acromioclavicular joint unremarkable. Dictated by Josue Mckinnon MD @ 01/08/2023 5:54:32 PM (Electronic Signature) Critical Care Time Critical Care Time Critical Care Time: No Discharge Plan Discharge Clinical Impression: Fracture, humerus Patient Disposition: Home, Self-Care Condition: Stable Instructions: Arm Fracture in Adults (ED), Shoulder Immobilizer (ED) Additional Instructions: Use shoulder immobilizer for immobilization of this arm. Can come off to shower. Tylenol for pain control, use ice to help decrease pain and inflammation as well. Need to call Orthopedic office this coming WednesdayJanuary 13 to get scheduled for follow-up appointment, phone number is [phone]. Prescriptions: No Action dofetilide 250 mcg capsule 250 mcg PO BID carbidopa-levodopa [Sinemet] 10-100 mg tablet 1 tab PO TID donepezil 10 mg tablet 10 mg .ROUTE QDAY Qty: 90 4RF Rx Instructions: 10 mg every day; lisinopril 10 mg tablet 10 mg PO QDAY Qty: 90 2RF memantine 10 mg tablet 10 mg PO BID Qty: 180 3RF warfarin 5 mg tablet 5 mg PO QDAY Qty: 30 0RF Protocol: Dose Management Condition: Wednesday Dose/Route: 5 mg Instruction: 1 x 5 mg tablet Condition: Wednesday Dose/Route: 5 mg Instruction: 1 x 5 mg tablet Condition: Wednesday Dose/Route: 5 mg Instruction: 1 x 5 mg tablet Condition: Wednesday Dose/Route: 5 mg Instruction: 1 x 5 mg tablet Condition: Dose/Route: 5 mg Instruction: 1 x 5 mg tablet Condition: Wednesday Dose/Route: 5 mg Instruction: 1 x 5 mg tablet Condition: Wednesday Dose/Route: 5 mg Instruction: 1 x 5 mg tablet Protocol Text: Adjustment Start Date: Wednesday12/30/22 INR Value: 2.7 INR Date: 12/30/22 Recheck Date: 02/28/23 Follow Up/Referrals: Marli Sauceda MD [Primary Care Provider] - Stand Alone Forms: [email or web address] Info Instructions
--- NOTE | 2023-01-08 16:41 | CRLHL7_ITS ---
For Patients: As a result of the Century Cures Act, medical imaging exams and procedure reports are released immediately into your electronic medical record. You may view this report before your referring provider. If you have questions, please contact your health care provider. Indication: Fall, pain Technique: Three views Comparison: None Findings/Impression: The arm is held in persistent internal rotation limiting evaluation of the humeral head/neck. On these views there does appear to be some cortical offset at the posterior cortex as well some faint sclerosis at the surgical neck of the humerus. This appearance is suspicious for a nondisplaced/impacted surgical neck fracture. No evidence of dislocation. Acromioclavicular joint unremarkable. Dictated by Josue Mckinnon MD @ 01/08/2023 5:54:32 PM (Electronically Signed)
== END 2023-01-08 18:29 | disposition home or self-care (01) ==
PROVIDERS: Emergency Provider Family Medicine; PCP Family Medicine
DX: S42.292A Other displaced fracture of upper end of left humerus, initial encounter for closed fracture (principal); W01.0XXA Fall on same level from slipping, tripping and stumbling without subsequent striking against object, initial encounter
CPT/HCPCS: 73030; 99283

== ENCOUNTER 2023-01-15 10:00 | Outpatient (RCR) | payer BC, SELFPAY ==
--- NOTE | 2022-11-06 15:35 | PT.OPEX ---
PT [place] [facility] Eval PT [facility] Out[facility] Eval Start: 11/06/22 08:03 Freq: Status: Active Protocol: Document 11/06/22 08:04 ENM (Rec: 11/06/22 11:20 ENM [id number]) E-signed By Ashley Hicks DPT Physical Therapy Outpatient Evaluation Insurance Information Recert Due Date 01/29/23 Insurance Name Medicare B Medical Diagnosis parkinsons disease Treating Diagnosis impaired gait, impaired transfers, impaired balance, impaired posture, decreased activity tolerance, decreased LE strength Referring MD Sauceda Subjective Subjective Patient presents to PT with his spouse Flor for evaluation of his Parkinsons symptoms. Family states that he has not been formally diagnosed with parkinsons but had symptoms that fit the presentation which started about 2 years ago. He has a history of being diagnosed with spinal stenosis, vertigo and vascular dementia. He started to have difficulties with his memory which is why they thought he had vascular dementia. They moved to [place] and had to find new doctors, is his current neurologist. He was put on sinemet and Anurag thinks this has helped his cognition but he still has difficulties with balance and walking. He takes a pill at morning, noon and night. He will use a walker for longer distances such as going to the airport. If he goes to the grocery store he will use the electric scooter. 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 He reports other symptoms such as constipation and fatigue. He is often stiff and achy in the morning so he has to do exercises to get going. With walking he finds that he has to hold on to things to stay steady. He is very slow with showering because of his balance. He reports cognitive fatigue towards the end of the day. With eating a hamburger for example he is very bent over and can't stay upright. He notices that his voice is different now than it used to be, his daughter often can't hear him now on speaker phone. His states that she notices his freezing if they are walking towards each other . He can dress himself but has to sit to perform it. His writing has been getting worse , not as legible and it is smaller. His has to look over his checks to make sure they can be read. Patient and families goal is to improve his walking so that he can walk 7000+ steps in a day and stay active. Pain Comments back ache Current Work Status Retired Preferred Name Aunrag Objective Other/Pertinent Objective ROM: LE WFL as seen with transfers MMT: hip flexors L 5/5 R 4-/5 knee extensors L 5/5 R 4+/5 ankle DF L 5/5 R 4-/5 Coordination: finger tapping no difficulties heel tapping difficulty staying on beat but improved with reps, no difficulties with alterating Posture: Patient rests with flexed trunk posture and protracted shoulders Gait: Patient ambulates with flexed knee posture, slow gait, decreased foot clearance and step length with some arm swing. Patient has difficulty with stopping and will have to hold on to the wall 1. TUG 22.01s slow to perform with multiple steps to turn 2. TUG manual 18.62s mild instability with turning 3. TUG cognitive 23.56s difficulty maintaining pace while answering Timed ADLs: doffing sweater in sitting 17.78s donning sweater in sitting 33. 5s 5xSTS with hands 15.13, slow to perform and maintaining knees flexed without hands 15.25s, 3/5 reps patient unable to get fully upright Other: patient has a flat affect and softer voice throughout evaluation, needing added time to answer questions *able to implement heel toe gait pattern when cued but more unstable when performing, able to improve posture when cued during gait Assessment Assessment/Impression Patient is a 76 year old male with 2 year history of Parkinson's like symptoms. He has been on Sinemet which has helped improve his cognition however balance/ambulation continue to be challenging. He has noticed a decline in his ability to maintain stability with functional activities such as dressing in standing or showering. As well as changes in his voice and writing ability. Patient stays very active with fitness classes but would like to be able to walk further with improved stability. Activity tolerance is limited more than before and with more cognitive fatigue reported. Rohan ambulates with a flexed gait pattern ,slow pace, decreased foot clearance/step length and difficulty coming to a stop. He presents as an increased falls risk with TUG balance testing. Stimulability noted during evaluation when cued for maintaining upright posture during ambulation bout . They are appropriate for treatment with LSVT BIG protocol to improve gait speed , gait pattern, transfers, balance/stability and function with ADLs/self cares. Primary Functional Limitations walking, showering, dressing in standing, Plan of Care Rehabilitation Potential Good Physical Therapy Goals Goals to be met in 4 weeks at d/c: 1. Patient will be able to get up from varying surfaces and heights in their home/ community confidently on 1st try 90% of the time to allow for safe access of home/ community environment 2. Patient will improve TUG score from 22.01s to 18.51s ( MDC 3.5 for PD) showing decreased falls risk 3. Patient will be able to shower with self reported improved stability 4/7 days of the week to demonstrate improvements in balance/ stability 4. Patient will be able to go up to get communion without a LOB with SBA from spouse in order to participate in faith activities 5. Patient will be able to sustain upright posture when eating during the day in order to participate in family meals Treatment Plan/Direct Interventions Gait Training,Joint Mobilization,Manual Therapy, Neuromuscular Re-ed,Self-Care/ Home Management,Therapeutic Activities,Therapeutic Exercises Frequency/Duration 4x per week for 4 weeks per BIG protocol Patient Will Be Discharged From Therapy Completion of LTG(s), Independent w/HEP Evaluation Billing Untimed Code Treatment Minutes 65 Complexity Low Certification Information Initial Certification Date 11/06/22 Ending Certification Date 01/29/23 Provider Signature Shows Agreement With POC & Medical Necessity Physician Signature & Date Requested Please Sign/Date Here Physician Comment/Change : Physician NPI Number #
== END 2023-03-29 14:32 | disposition home or self-care (01) ==
PROVIDERS: PCP Family Medicine; Visit Provider Family Medicine
DX: G20 Parkinson's disease (principal); Z51.89 Encounter for other specified aftercare
CPT/HCPCS: 97112; 97116; 97161; 97530

== ENCOUNTER 2023-02-12 10:48 | Outpatient (CLI) | payer BC, SELFPAY | END 2023-02-12 10:49 | disposition home or self-care (01) | LOC: RAD 10:49 | PROVIDERS: PCP Family Medicine; Visit Provider Internal Medicine | DX: I48.91 Unspecified atrial fibrillation (principal); I48.92 Unspecified atrial flutter; I51.7 Cardiomegaly; I35.1 Nonrheumatic aortic (valve) insufficiency; I34.0 Nonrheumatic mitral (valve) insufficiency | CPT/HCPCS: 93306 ==

== ENCOUNTER 2023-02-19 10:00 | Outpatient (RCR) | payer BC, SELFPAY ==
--- NOTE | 2023-01-20 16:11 | PT.OPEX ---
PT [place] Outpatient Eval PT [facility] Out[facility] Eval Start: 01/19/23 15:22 Freq: Status: Active Protocol: Document 01/19/23 15:23 GIOVANNIShyann (Rec: 01/19/23 16:38 KL [id number]) E-signed By Rosy Vicente, PT Physical Therapy Outpatient Evaluation Insurance Information Recert Due Date 04/16/23 Insurance Name Blue Cross/Blue Shield Medical Diagnosis Status post fall Treating Diagnosis Antalgic gait, balance deficits, LE weakness Referring MD Sauceda Subjective Subjective Rohan (accompanied by Flor) reports to PT s/p fall 01/08/23 in his home. States he is unsure what happened as it occurred so quickly. Feels that he might have tripped over rug. Was seen in ED and sustained L humerus fracture. He is in immobilizer and NWB/ no P/AROM L UE. Has follow up with orthopedics in 5 weeks. He currently uses 4WW outside the home and furniture walks inside his home. Having balance difficulties with underlying parkinson's and gross LE weakness. Very fearful of falling following recent incident and has been using walker as wheelchair. Just finished BIG program for parkinsons and was advised to continue with OP PT to keep strength and balance up while L UE is healing. He is looking into getting OT services at [facility] however would like to come to [place] [facility] rehab facility for PT services. He is unsure what he can do and should be focusing on right now for strengthening exercises d/t inability to use L UE. He does attend workout classes 2 times a week at [facility]. PMH: Parkinson's, Afib, HTN, dementia, prostate CA, aortic aneurysm Pain Comments 10 L humerus Date of Last Physician Visit 01/15/23 Current Work Status Retired Preferred Name Anurag Precautions Therapy Limitations/Systems Review Cognition,Hearing Objective Other/Pertinent Objective Gait: -4WW flexed hip and knee posturing with short step lengths B, limited foot clearance and mid foot strike, step length improves with cuing -SEC able to sequence well today, slight improvement in upright posture, no gait deviations or LOB noted Hip ROM: WFL for transfers LE Strength (R/L): -DL heel raise: unable to perform -ankle DF: R: 3/5, L: 4+/5 ( repetitive ankle DF-able to perform x10 R however 50% excursion d/t fatigue) -Knee Ext: R: 4+/5, L: 4+/5 -Knee Flex: R: 5-/5, L: 5/5 -Hip Abd: R: 4/5, L: 4/5 -Hip Flx: R: 4+/5, L: 4+/5 WBOS EO: WNL WBOS EC: able to hold 15 sec NBOS EO: able to hold 10 sec Modified tandem: unable to hold however easier to achieve position with L LE behind Functional Test Performed & Score 5 time sit to stand without UE use: 14.6 sec, genu valgus R> L, flexed hip posturing with each stand Regular sit to stand: patient demonstrates more difficulty sequencing and requires more momentum to stand. Cuing to stand tall Assessment Assessment/Impression Patient is a 77 year old male presenting to physical therapy for evaluation and treatment of weakness and gait instability s/p fall 01/08/23 with sustained L humerus fx and NWB in immobilizer complicated by parkinson's symptoms, dementia, HTN, afib. Patient presents with antalgic gait, difficulty transferring, balance while dressing/bathing. Advised patient and to purchase SEC for home use d/t current balance deficits. Both in agreeance with plan. Patient appears motivated to participate in PT and presents with good prognosis to improve mobility, strength, proprioception to optimize gait, balance and strength in order to reduce fall risk with skilled physical therapy intervention. Primary Functional Limitations antalgic gait, difficulty transferring, balance while dressing/bathing Plan of Care Rehabilitation Potential Good Physical Therapy Goals In 6 weeks (03/03/23) Pt will ambulate 50' with supervision with least restrictive device in order to safely negotiate apartment. Pt will report ability to get up from varying surfaces without use of UE in order to demonstrate improvement in functional strength and maintain NWB status of L UE. In 12 weeks (04/14/23) Pt will demonstrated improvement in functional strength with ability to perform 5 times sit to stand from 14.6 sec to 11.6 sec to demonstrate MDC. Pt will ambulate 100' with supervision with least restrictive device in order to safely negotiate apartment Pt will report ability to stand up to or greater 1 minute without sway in order to perform ADLs with supervision Treatment Plan/Direct Interventions Gait Training,Ice/Cold/ Vasopneumatic,Joint Mobilization,Manual Therapy, Neuromuscular Re-ed,Self-Care/ Home Management,Therapeutic Activities,Therapeutic Exercises Frequency/Duration 1x/wk for 6 weeks with additional 4 sessions prn based on progress Patient Will Be Discharged From Therapy Completion of LTG(s), Independent w/HEP, Independently Progressing Evaluation Billing Untimed Code Treatment Minutes 28 Complexity Moderate Certification Information Initial Certification Date 01/19/23 Ending Certification Date 04/15/23 Provider Signature Shows Agreement With POC & Medical Necessity Physician Signature & Date Requested Please Sign/Date Here Physician Comment/Change : Physician NPI Number #
--- NOTE | 2023-02-19 13:22 | PT.OPEX ---
[facility] [place] [facility] Eval PT [facility] Outpatient Eval Start: 01/19/23 15:22 Freq: Status: Active Protocol: Document 02/19/23 08:07 ENM (Rec: 02/19/23 10:42 ENM [id number]) E-signed By Ashley Hicks, DPT Physical Therapy Outpatient Evaluation Insurance Information Recert Due Date 05/14/23 Insurance Name Medicare B Medical Diagnosis unspecified fracture of shaft of humerus, unspecified arm, initial encounter for closed fracture Treating Diagnosis decreased shoulder ROM, decreased shoulder strength, left shoulder pain, impaired ADLs Referring MD Fowler Subjective Subjective Patient presents to PT for follow up after left shoulder proximal humerus fracture (). He had been NWB on the LUE and not using it for mobility since the injury. Saw the PA earlier this week and was told that the shoulder is healing well and that he could start to use it for ADLS. Pains have been minimal overall just feeling an ache. He states that he is able to lift his left arm. He reports no difficulties with reaching to grab cup/utensils and dressing is going ok. He plans to continue using his cane when not carrying items, will use the walker when he has to carry items. The most challenging things to do with the left arm right now are pushing and carrying objects. As well as sleeping on his left side. He is also noticing some discomfort in his right shoulder because he has been using it so much lately. PMHx: Parkinson's X-rays are taken today left shoulder AP, scapular Y, axial views. Preliminary review shows proximal humerus fracture, surgical neck. Callus formation seen. Pain Comments minimal Current Work Status Retired Preferred Name Anurag Objective Other/Pertinent Objective ROM: AROM standing shoulder flexion L 89 R 125 ( supine L AROM 125, passive 125 ) abduction L 70 R 125 IR R T9 (L 54 R 63) ER R C5 (L 46 R 75) Strength: shoulder flexion R 4+/5 shoulder abduction R 4+/5 shoulder IR0 R 4/5 shoulder ER0 R 4/5 Palpation/joint mobility: no tenderness to palpation of shoulder musculature Functional Test Performed & Score SPADI: pain 12/50 24% disability 16/80 20% total 28/130 Assessment Assessment/Impression Patient is a 77 year old male presenting 6 weeks after left shoulder proximal humerus fracture (01/08/23). Their primary complaint is of difficulty with lifting and carrying objects. He has been able to start dressing and feeding himself without difficulties. He is also being seen in PT under another POC for balance/weakness. Upon assessment patient displays decreased shoulder strength and ROM active shoulder flexion 89 degs, abduction 70 degs, IR 54 degs and ER 46 degs. He displays no tenderness to palpation along shoulder musculature. He is able to use the shoulder for bed mobility and STS without discomfort reported. Rohan would greatly benefit from skilled PT to address impairments stated above in order to perform all self cares/ADLS and household without significant discomfort or difficulty. Primary Functional Limitations reaching, carrying Plan of Care Rehabilitation Potential Good Physical Therapy Goals In 6-8 visits: 1. Patient will be IND with HEP and self management of symptoms 2. Patient will display pain free shoulder AROM to at least 120 degs for improved ability to perform self cares/ADLs 3. Patient will be able to comfortably sleep through the night of the left shoulder for improved sleep hygiene 4. Patient will improve SPADI from 28 to 15 (MDC 13) to demonstrate improvements in QOL Coordination/Communication With Referral Source Treatment Plan/Direct Interventions Joint Mobilization,Manual Therapy,Neuromuscular Re-ed, Self-Care/Home Management, Therapeutic Activities, Therapeutic Exercises Frequency/Duration 1x a week for 6 weeks, as needed for 2 visits Patient Will Be Discharged From Therapy Completion of LTG(s), Independent w/HEP Evaluation Billing Untimed Code Treatment Minutes 30 Complexity Low Certification Information Initial Certification Date 02/19/23 Ending Certification Date 05/14/23 Provider Signature Shows Agreement With POC & Medical Necessity Physician Signature & Date Requested Please Sign/Date Here Physician Comment/Change : Physician NPI Number #
== END 2023-03-29 14:31 | disposition home or self-care (01) ==
PROVIDERS: PCP Family Medicine; Visit Provider Family Medicine
DX: S42.309A Unspecified fracture of shaft of humerus, unspecified arm, initial encounter for closed fracture (principal); Z91.81 History of falling; S42.202A Unspecified fracture of upper end of left humerus, initial encounter for closed fracture; M25.512 Pain in left shoulder; R53.1 Weakness; Z74.09 Other reduced mobility; Z51.89 Encounter for other specified aftercare
CPT/HCPCS: 97110; 97161; 97162; 97530

== ENCOUNTER 2023-04-16 09:25 | Outpatient (CLI) | payer BC, SELFPAY | END 2023-04-16 09:26 | disposition home or self-care (01) | LOC: NFLDREF 04-21 06:15 | PROVIDERS: PCP Family Medicine; Referring Provider Family Medicine; Visit Provider Internal Medicine | DX: I48.91 Unspecified atrial fibrillation (principal); I48.92 Unspecified atrial flutter | CPT/HCPCS: 80048 ==

== ENCOUNTER 2023-05-06 12:14 | Emergency (ER) | payer BC, SELFPAY ==
[2023-05-06 12:42] VITALS: BP 126/81; PULSE 68; RESP 16; TEMP 36.4; O2SAT 95; BMI 25.1
[2023-05-06 13:20] LABS: Appearance Urine Cloudy (Clear); Bilirubin Urine Negative (Negative); Blood Urine 3+ (Negative); Color Urine Yellow (Yellow); Glucose Urine Negative (Negative); Ketones Urine Negative (Negative); Leukocyte Esterase Urine Negative (Negative); Nitrite Urine Negative (Negative); Protein Urine Negative (Negative); Urobilinogen Urine 0.2 (0.2-1.0)
[2023-05-06 13:22] LABS: RBC Urine 25-50 (0-2); WBC Urine 0-2 (0-5)
[2023-05-06 13:23] LABS: Squamous Epithelial Cell Urine Few (None-Few)
[2023-05-06 15:46] VITALS: BP 145/97; PULSE 61; RESP 18; TEMP 36.7; O2SAT 96
--- NOTE | 2023-05-06 15:47 | PC.NURSE ---
Pt states he urinated while in waiting room, urine is still pink tinged. Denies pain. History of Prostate CA with radiation, last PSA 0 in December. Pt also on Warfarin for AFib. Last INR around 2.
--- NOTE | 2023-05-06 16:05 | ED_ITS ---
HPI - General Adult General Date Seen: 05/06/23 Chief complaint: Urogenital Problems, Male Stated complaint: Blood in urine Time Seen by Provider: 05/06/23 16:02 History of Present Illness HPI narrative: This is a 77-year-old gentleman with a history of prostate cancer (follows with a urologist in [place] last year PSA was 0), atrial fibrillation (on Coumadin, INR on 04/16 was therapeutic at 2.3), dementia, sleep apnea, lumbar stenosis, Parkinson disease who presents to the ER today with pink tinged bloody urine ongoing for the past week. The patient has a history of prostate cancer that was treated with radiation therapy years ago. Most recent urology follow-up was in December and at that time his PSA was undetectable and he was told to follow-up in 1 year. He is on Coumadin for AFib. He has not had any other recent unusual bruising or bleeding. He has noted since at least Wednesday but perhaps longer than that that he has pinked tinged blood in the toilet when he urinates. No other symptoms. No dysuria, urgency frequency. No flank pain or back pain. No fever or chills. No nausea vomiting. Bowel movements been normal. No abdominal pain. Today his finally saw the blood tinged urine and asked him how long it has been going on. She made him come directly here to the ER for evaluation. Related Data Home Medications Medication Instructions Recorded Confirmed dofetilide 250 mcg capsule 250 mcg PO BID 01/21/22 05/06/23 carbidopa 10 mg-levodopa 100 mg 1 tab PO TID 04/24/22 05/06/23 tablet (Sinemet) Previous Rx's Medication Instructions Recorded donepezil 10 mg tablet 10 mg .Route QDAY #90 tabs 09/02/22 lisinopril 10 mg tablet 10 mg PO QDAY #90 tabs 10/14/22 memantine 10 mg tablet 10 mg PO BID #180 tabs 11/18/22 warfarin 5 mg tablet 5 mg PO DAILY #90 tabs 03/18/23 Allergies Allergy/AdvReac Type Severity Reaction Status Date / Time Penicillins Allergy Intermediate Rash Verified 05/06/23 12:40 Sulfa (Sulfonamide Allergy Rash Verified 05/06/23 12:40 Antibiotics) [facility] Medical History Sleep apnea treated with nocturnal BiPAP ?G47.30 - Sleep apnea, unspecified (ICD-10) Health care directive on file ?Z78.9 - Other specified health status (ICD-10) Prostate cancer (2017) ?C61 - Malignant neoplasm of prostate (ICD-10) Vascular dementia (2017) ?F01.50 - Vascular dementia without behavioral disturbance (ICD-10) Central sleep apnea (2017) ?G47.31 - Primary central sleep apnea (ICD-10) Spinal stenosis of lumbar region ?M48.061 - Spinal stenosis, lumbar region without neurogenic claudication (ICD-10) Primary hypertension ?I10 - Essential (primary) hypertension (ICD-10) long term care social worker current use of anticoagulant therapy ?Z79.01 - nursing home (current) use of anticoagulants (ICD-10) History of vitamin D deficiency ?Z86.39 - Personal history of other endocrine, nutritional and metabolic disease (ICD-10) History of malignant neoplasm of prostate (2018) ?Z85.46 - Personal history of malignant neoplasm of prostate (ICD-10) Esophageal dysmotility ?K22.4 - Dyskinesia of esophagus (ICD-10) Atrial fibrillation and flutter (2017) ?I48.91 - Unspecified atrial fibrillation (ICD-10) ?I48.92 - Unspecified atrial flutter (ICD-10) Ascending aortic aneurysm (2016) ?I71.2 - Thoracic aortic aneurysm, without rupture (ICD-10) Surgical History History of external beam radiation therapy (~2016) ?Z92.3 - Personal history of irradiation (ICD-10) History of vasectomy ?Z98.52 - Vasectomy status (ICD-10) History of surgical removal of ganglion cyst ?Z98.890 - Other specified postprocedural states (ICD-10) History of colonoscopy (02/27/20) ?Z98.890 - Other specified postprocedural states (ICD-10) History of cataract extraction (2018) ?Z98.49 - Cataract extraction status, unspecified eye (ICD-10) Family History Father Oral cancer Maternal Grandfather Stomach cancer Mother Dementia, Onset Age: 70 Paternal Grandfather Diabetes Social History (Updated 02/17/23 @ 09:36 by Lu Harris ~ [facility], [facility]) Narrative: -[place], 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/ [employer], 2 children, lives in independent living non smoker, quit 1978, 10 pack years alcohol 3 / week exercise 3/ week, 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, 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 Smoking Status: Former smoker What tobacco products do you use: cigarettes Smoking quit date/years: >15 years ago Do you use any of these nicotine containing products: None Second hand tobacco smoke exposure: No How often do you have a drink containing alcohol: 4 or more times a week How many standard drinks containing alcohol do you have on a typical day: 1 or 2 AUDIT-C Alcohol total score: 4 Non-prescribed substance use: denies use Little interest or pleasure in doing things: not at all Feeling down, depressed, or hopeless: not at all service: No Exam Narrative: Exam Narrative: Constitutional: Appears well-developed and well-nourished. Alert. Conversant, but not a detailed historian. supplements his history. Non toxic. HENT: Head: Atraumatic. Nose: Nose normal. Mouth/Throat: Oral mucosa is clear and moist. no trismus. Pharynx normal. Tonsils symmetric. No tonsillar enlargement, erythema, or exudate. Eyes: Conjunctivae normal. EOM normal. Pupils equal, round, and reactive to light. No scleral icterus. Neck: Normal range of motion. Neck supple. No tracheal deviation present. Cardiovascular: Normal rate, regular rhythm. No gallop. No friction rub. No murmur heard. Symmetric radial artery pulses Pulmonary/Chest: Effort normal. No stridor. No respiratory distress. No wheezes. No rales. No rhonchi . No tenderness. Abdominal: Soft. Bowel sounds normal. No distension. No mass. No tenderness. No rebound. No guarding. No CVA tenderness. Musculoskeletal: RUE: Normal range of motion. No tenderness. No deformity LUE: Normal range of motion. No tenderness. No deformity RLE: Normal range of motion. No edema. No tenderness. No deformity LLE: Normal range of motion. No edema. No tenderness. No deformity Lymph: No inguinal adenopathy. Neurological: Alert and oriented to person, place, and time. Normal strength. CN II-VII intact. No sensory deficit. GCS eye subscore is 4. GCS verbal subscore is 5. GCS motor subscore is 6. Normal coordination Skin: Skin is warm and dry. No rash noted. No pallor. Normal capillary refill. Psychiatric: Normal mood. Normal affect. Const: Vital Signs, click to edit/add: Vital Signs - 24 hr 05/06/23 12:42 05/06/23 15:46 05/06/23 18:10 Temperature 97.6 F 98.0 F Pulse Rate [Femora l] 68 61 Pulse Rate [Pulse Oximeter] 63 Respiratory Rate 16 18 16 Blood Pressure [Ri t Upper Arm] 126/81 145/97 H Pulse Oximetry 95 96 97 Oxygen Delivery Me thod Room Air Room Air Room Air Course Vital Signs Vital signs: Initial Vital Signs Temperature 97.6 F 05/06/23 12:42 Temperature Source Temporal Artery Scan 05/06/23 12:42 Pulse Rate 68 05/06/23 12:42 Pulse Rhythm Regular 05/06/23 12:42 Pulse Strength 3+ Normal 05/06/23 12:42 Respiratory Rate 16 05/06/23 12:42 Blood Pressure 126/81 05/06/23 12:42 Blood Pressure Mean 96 05/06/23 12:42 Blood Pressure Position Sitting 05/06/23 12:42 Pulse Oximetry 95 05/06/23 12:42 Oxygen Delivery Method Room Air 05/06/23 12:42 Vital Signs Temperature 97.6 F 05/06/23 12:42 Pulse Rate 68 05/06/23 12:42 Respiratory Rate 16 05/06/23 12:42 Blood Pressure 126/81 05/06/23 12:42 Pulse Oximetry 95 05/06/23 12:42 Oxygen Delivery Method Room Air 05/06/23 12:42 Temperature 98.0 F 05/06/23 15:46 Pulse Rate 63 05/06/23 18:10 Respiratory Rate 16 05/06/23 18:10 Blood Pressure 145/97 H 05/06/23 15:46 Pulse Oximetry 97 05/06/23 18:10 Oxygen Delivery Method Room Air 05/06/23 18:10 Medical Decision Making MDM Narrative Medical decision making narrative: This is a very pleasant 77-year-old gentleman on warfarin for AFib, with history of Parkinson's disease and history of prostate cancer presenting with about a one-week history of visible pink tinged gross hematuria. no clots or symptoms of urinary retention. Fall no other abdominal pain or flank pain to suggest urinary tract infection, kidney stone. Urinalysis shows hematuria but otherwise negative nitrite, negative leukocyte esterase, no pyuria or bacteriuria to suggest UTI. Will send urine culture although at this point low suspicion for true UTI. With no abdominal pain or flank pain very low suspicion for obstructing kidney stone. No abdominal pain or mass to suggest AAA. He has no history of kidney cancer or bladder cancer but does have a history of previously treated prostate cancer. He will need outpatient follow-up with urology for further evaluation with cystoscopy. He is on warfarin for atrial fib stroke prophylaxis. Recent INR was therapeutic. Recheck INR today is therapeutic at 2.3.. CBCs shows a normal hemoglobin of 15.4. Platelet count 164. No other unusual bruising or bleeding. No GI bleeding. Kidney function is normal. At this point I think he is stable for outpatient follow-up with Urology. He had his agree. Cautions for return to the are reviewed. Lab Data Labs: Lab Results 05/06/23 05/06/23 05/06/23 Range/Units 12:45 16:24 16:49 WBC 3.76 L (4.50-11.00) K/uL RBC 5.08 (4.30-5.90) m/uL Hgb 15.4 (13.5-17.5) gm/dL Hct 47.0 (37.0-53.0) % MCV 93 (80-100) fL MCH 30 (26-34) pg MCHC 33 (32-36) gm/dL RDW Coeff of Cristofer 12.8 (11.5-15.5) % Plt Count 164 (140-440) K/uL Neut % (Auto) 64.2 (42.0-72.0) % Lymph % (Auto) 16.8 L (20-44) % Greenlee % (Auto) 15.2 H (0.0-11.0) % Eos % (Auto) 3.2 (0.0-7.0) % Baso % (Auto) 0.3 (0.0-3.0) % Neut # (Auto) 2.40 (1.7-7.0) K/uL Lymph # (Auto) 0.60 L (0.90-2.90) K/uL Greenlee # (Auto) 0.60 (0.00-0.90) K/UL Eos # (Auto) 0.10 (0.00-0.50) K/uL Baso # (Auto) 0.00 (0.00-0.30) K/uL Abs Immat Gran (auto) 0.00 (0.00-0.30) K/uL Imm/Tot Granulo (auto) 0.3 % INR 2.34 H (0.91-1.10) Sodium 138 (135-149) mmol/L Potassium 4.0 (3.6-5.1) mmol/L Chloride 106 (96-114) mmol/L Carbon Dioxide 25 (20-32) mmol/L Anion Gap 7 (7-15) mEq/L BUN 14 (7-30) mg/dL Creatinine 0.7 (0.5-1.5) mg/dL Estimated Creat Clear 68.80 Estimated GFR 94 ml/min Glucose 93 (60-115) mg/dL Calcium 8.5 (8.4-10.6) mg/dL Urine Color Yellow (Yellow) Urine Appearance Cloudy A (Clear) Urine pH 6.0 (5.0-8.5) Ur Specific Bath 1.010 (1.000-1.030) Urine Protein Negative (Negative) Urine Glucose (UA) Negative (Negative) Urine Ketones Negative (Negative) Urine Blood 3+ A (Negative) Urine Nitrite Negative (Negative) Urine Bilirubin Negative (Negative) Urine Urobilinogen 0.2 (0.2-1.0) Ur Leukocyte Esterase Negative (Negative) Urine RBC 25-50 A (0-2) Urine WBC 0-2 (0-5) Ur Squamous Epith Cells Few (None-Few) Urine Bacteria None (None) Lab Acknowledgement Test Added Discharge Plan Discharge Clinical Impression: Hematuria Patient Disposition: Home, Self-Care Condition: Stable Instructions: Hematuria (ED) Additional Instructions: Please return to the ER right away if you have any problems especially heavier bleeding, dizziness or lightheadedness, pain in your bladder, abdomen, or in your back, fever, vomiting, or if you have any concerns. Please call your urologist tomorrow morning to schedule a recheck appointment for as soon as possible. Prescriptions: No Action dofetilide 250 mcg capsule 250 mcg PO BID carbidopa-levodopa [Sinemet] 10-100 mg tablet 1 tab PO TID donepezil 10 mg tablet 10 mg .ROUTE QDAY Qty: 90 4RF Rx Instructions: 10 mg every day; lisinopril 10 mg tablet 10 mg PO QDAY Qty: 90 2RF memantine 10 mg tablet 10 mg PO BID Qty: 180 3RF warfarin 5 mg tablet 5 mg PO DAILY Qty: 90 0RF Protocol: Dose Management Condition: Wednesday Dose/Route: 5 mg Instruction: 1 x 5 mg tablet Condition: Wednesday Dose/Route: 5 mg Instruction: 1 x 5 mg tablet Condition: Wednesday Dose/Route: 5 mg Instruction: 1 x 5 mg tablet Condition: Wednesday Dose/Route: 5 mg Instruction: 1 x 5 mg tablet Condition: Dose/Route: 5 mg Instruction: 1 x 5 mg tablet Condition: Wednesday Dose/Route: 5 mg Instruction: 1 x 5 mg tablet Condition: Wednesday Dose/Route: 5 mg Instruction: 1 x 5 mg tablet Protocol Text: Adjustment Start Date: Wednesday04/16/23 INR Value: 2.3 INR Date: 04/16/23 Recheck Date: 04/30/23 Follow Up/Referrals: Marli Sauceda MD [Primary Care Provider] - Stand Alone Forms: [facility] Info Instructions
[2023-05-06 16:32] LABS: Basophils Percent Auto 0.3 % (0.0-3.0); Eosinophils Percent Auto 3.2 % (0.0-7.0); Hemoglobin* 15.4 gm/dL (13.5-17.5); Immature Granulocytes Pct Auto 0.3 %; Lymphocytes Percent Auto 16.8 % (20-44); Mean Corpuscular HGB Conc 33 gm/dL (32-36); Mean Corpuscular Hemoglobin 30 pg (26-34); Mean Corpuscular Volume 93 fL (80-100); Monocytes Percent Auto 15.2 % (0.0-11.0); Neutrophils Percent Auto 64.2 % (42.0-72.0); Platelet Count* 164 K/uL (140-440); RDW Coefficient of Variation % 12.8 % (11.5-15.5); Red Blood Count 5.08 m/uL (4.30-5.90); White Blood Count* 3.76 K/uL (4.50-11.00)
[2023-05-06 16:33] LABS: Slide Review Reflex No
[2023-05-06 16:51] LABS: Chloride* 106 mmol/L (96-114); Sodium* 138 mmol/L (135-149)
[2023-05-06 16:54] LABS: Anion Gap 7 mEq/L (7-15); Blood Urea Nitrogen* 14 mg/dL (7-30); Carbon Dioxide* 25 mmol/L (20-32); Creatinine* 0.7 mg/dL (0.5-1.5); Estimated Glomerular Filt Rate 94 ml/min
[2023-05-06 16:55] LABS: Calcium* 8.5 mg/dL (8.4-10.6); Glucose* 93 mg/dL (60-115); INR 2.34 (0.91-1.10); Prothrombin Time 26.8 Seconds
[2023-05-06 18:10] VITALS: PULSE 63; RESP 16; O2SAT 97
== END 2023-05-06 18:21 | disposition home or self-care (01) ==
PROVIDERS: Emergency Provider Emergency Medicine; PCP Family Medicine
DX: R31.9 Hematuria, unspecified (principal)
CPT/HCPCS: 36415; 80048; 81001; 85025; 85610; 87086; 99283

== ENCOUNTER 2023-08-13 09:14 | Outpatient (CLI) | payer BC, SELFPAY ==
--- OUTSIDE RECORDS SUMMARY | 2023-08-16 11:18 | XMS_ITS ---
Author Name Unknown Organization [facility] Address [address] [place] [address] Care Team Providers Care Application Assistant Name Role Phone Desiree Patrick MD Unavailable Farrah Nicole APRN,ALEX Unavailable [phone] Bry Echevarria MD Unavailable Jamal CARLISLE DO, Robert William Unavailable Unav ailable Shruti Vergara RN Unavailable Unavailable Active Problems Problem Noted Date Diagnosed Date History of prostate cancer 08/26/2021 Overview: 2018 Vitamin D deficiency 08/26/2021 Dementia without behavioral disturbance 05/16/20 20 Overview: alzheimer's type Aortic root dilatation 02/14/2020 Dependence on bilevel positi ve airway pressure (BiPAP) ventilation due to central sleep apnea 02/14/2020 Overview: Severe central sleep apnea with an AHI 40.8 On dofetilide therapy 07/13/2019 Spinal stenosis of lumbar re gion without neurogenic claudication 12/20/2018 Imbalance 11/09/2018 Muscle weakness 11/09/2018 Muscle tightness 11/09/2018 Bilateral foot-drop 11/09/2018 [facility] (current) use of anticoagulants 2018 Encounter for monitoring dofetilide therapy 06/11 Atrial fibrillation (HCC) 06/21/2017 Essential hypertension 10/21/2016 Thoracic ascending aortic aneurysm 06/11/2016 Overview: 4.2 x 4.[address] [facility] Atrial flutter 11/15/2015 Esophageal dysmotility Overview: uses Reglan on a PRN basis Hearing loss Overview: wears hearing aids Hepatitis C antibody test positive Overview: negative quant RNA Current Oncology Plans No current plan information found. Past Plans No past plan information found. Radiation Treatments * No radiation treatments are documented for this patient in [facility]. Treatments may have been administered in another system. Lifetime Dose Tracking * Chemical Lifetime Dose Automatic Entry Manual Entr y Radiation (DLP) 2,173.92 mGy.cm 2,173.92 mGy.cm 0 mGy. cm Resolved Problems Problem Noted Date Diagnosed Date Resolved Date Prostate cancer 01/03/2020 08/26/2021 Anticoagulated with warfarin 07/13/2019 04/08/2021 Persistent atrial fibrillation 11/26/2016 06/20/2018 Uncontrolled atrial flutter 10/18/2016 10/21/2016 Thoracic ascending aortic aneurysm 10/08/2016 Atrial fibrillation with RVR 10/21/2016
--- OUTSIDE RECORDS SUMMARY | 2023-08-16 11:18 | XMS_ITS | Encounter Summary ---
Author Name Unknown Organization [email or web address]ates Address [address] [place] [address] Care Team Providers Care Housekeeping Director Name Role Phone Desiree Patrick MD Unavailable Farrah Nicole APRN, CNS Unavailable Bry Echevarria MD Unavailable [phone] Jamal CARLISLE DO, Robert William Unavailable Unav ailable Shruti Vergara RN Unavailable Unavailable Reason for Visit * Reason Onset Date Comments Refill Request 05/27/2023 Encounter Details Date Type Department Care Team Description 05/27/2023 Chart Note [facility] Medication Management Anticoagulation [address] [place] [address] Marilyn Rios, RN Chief Comp: Refill Request Social History Tobacco Use Types Packs/Day Years Used Date Smoking Tobacco: Former Cigarettes 1 18 Q uit: 1978 Smokeless Tobacco: Never Alcohol Use Standard Drinks/Week Comments Yes 7 (1 standard drink = 0.6 oz pur e alcohol) 1-2 beers daily Humiliation, Afraid, Rape, and Kick questionnair e Answer Date Recorded Within the last year, have y ou been afraid of your partner or ex-partner? No 04/04/2021 Within the last year, have y ou been humiliated or emotionally abused in other ways by your partner or ex-partner? No Within the last year, have y ou been kicked, hit, slapped, or otherwise physically hurt by your partner or ex-partner? No 04/04/2021 Within the last year, have y ou been raped or forced to have any kind of sexual activity by your partner or ex-partner? No 04/04/2021 Social Connection and Isolat ion Panel [NHANES] Answer Date Recorded In a typical week, how many times do you talk on the phone with family, friends, or neighbors? Three times a week 04/04/2021 How often do you get togethe r with friends or relatives? More than three times a week 04/04/2021 How often do you attend chur ch or episcopal services? More than 4 times per year 04/04/2021 Do you belong to any clubs o r organizations such as latter-day groups, unions, fraternal or athletic groups, or school groups? Yes 04/04/2021 How often do you attend meet ings of the clubs or organizations you belong to? More than 4 times per year 04/04/2021 Are you , , di vorced, , never , or living with a partner? 04/04/2021 AUDIT-C Answer Date Recorded Q1: How often do you have a drink containing alc ohol? 2-3 times a week 04/04/2021 Q2: How many drinks containi ng alcohol do you have on a typical day when you are drinking? 1 or 2 04/04/2021 Q3: How often do you have si x or more drinks on one occasion? Never 04/04/2021 Overall Financial Resource Strain (CARDIA) Answe r Date Recorded How hard is it for you to pa y for the very basics like food, housing, medical care, and heating? Not hard at all 04/04/2021 [facility] of Occupat ional Health - Occupational Stress Questionnaire Answer Date Recorded Do you feel stress - tense, restless, nervous, or anxious, or unable to sleep at night because your mind is troubled all the time - these days? Not at all 04/04/2021 Exercise Vital Sign Answer Date Recorde d On average, how many days pe r week do you engage in moderate to strenuous exercise (like a brisk walk)? 5 days 04/04/2021 On average, how many minutes do you engage in exercise at this level? 60 min 04/04/2021 Hunger Vital Sign Answer Date Recorded Within the past 12 months, y ou worried that your food would run out before you got the money to buy more. Never true 04/04/20 21 Within the past 12 months, t he food you bought just didn't last and you didn't have money to get more. Never true 04/04/2021 PRAPARE - Transportation Answer Date Re corded In the past 12 months, has l ack of transportation kept you from medical appointments or from getting medications? No 03/13 In the past 12 months, has l ack of transportation kept you from meetings, work, or from getting things needed for daily living? No 04/04/2021 Housing Stability Answer Date Recorded In the last 12 months, was t here a time when you were not able to pay the mortgage or rent on time? No 04/04/2021 In the last 12 months, how many places have you lived? 2 04/04/2021 Number of Places Lived in the Last Year (Outpati ent) Not on file 04/04/2021 Number of Places Lived in the Last Year (Inpatie nt) Not on file 04/04/2021 In the last 12 months, was t here a time when you did not have a steady place to sleep or slept in a penitentiary (including now)? No 04/04/2021 Depression (PHQ-9) Answer Date Recorded Last PHQ-9 Score Not on file 08/27/2022 Thoughts of self harm Not at all 08/27/2022 Education Answer Date Recorded What is the highest level of school you have completed or the highest degree you have received? Master's degree (e.g., MA, MS, Mirlande, MEd, PUBLIC POLICY PROFESSOR, ROHIT) 08/19/2020 Sex and Gender Information Value Date Recorded Sex Assigned at Not on file Gender Identity Not on file Sexual Orientation Not on file documented as of this encounter Functional Status Functional Status Response Date of Assess ment Are you deaf or do you have serious difficulty h earing? No 08/26/2021 Are you blind or do you have serious difficulty seeing, even when wearing glasses? No 08/26/2021 Do you have serious difficul ty walking or climbing stairs? No 08/26/2021 Do you have difficulty dressing or bathing? No 08/26/2021 Do you have difficulty doing errands alone such as visiting a doctor's office or shopping because of a physical, mental, or emotional condition? No 08/26/2021 Cognitive Status Response Date of Assessm ent Do you have trouble concentr ating, remembering, or making decisions because of a physical, mental, or emotional condition? No 08/26/2021 documented as of this encounter Nursing Notes * Marilyn Rios, RN - 05/27/2023 4:02 PM CST Refill request for warfarin. Patient is managed by Provider in [place]. Contacted [facility] pharmacy to follow up with patient for refill. MAKER documented in this encounter Plan of Treatment Not on file documented as of this encounter Visit Diagnoses Not on filedocumented in this encounter Care Teams Housekeeping Director Relationship Specialty Start Date End Date Desiree Patrick MD [address] [place] [address] 08/09/17 Farrah Nicole APRN,CONVERTING SUPERVISOR [address] [place] [address] 08/09/17 Bry Echevarria MD [address] [place] [phone] 08/09/17 Casey Berry II, DO 08/09/17 Shruti Vergara, RN RN Registered Nurse 08/27/20 documented as of this encounter Additional Source Comments PLEASE NOTE: Replies to this message will not be received.[facility] and [facility]
--- OUTSIDE RECORDS SUMMARY | 2023-08-16 11:18 | XMS_ITS | Clinical Summary ---
Author Name Unknown Organization [employer] [facility] Address [address] [place] [address] Care Team Providers Care Flight Kitchen Manager Name Role Phone Desiree Patrick MD Unavailable Farrah Nicole APRN,ALEX Unavailable Bry Echevarria MD Unavailable [phone] Jamal CARLISLE DO, Robert William Unavailable Unav ailable Shruti Vergara RN Unavailable Unavailable Allergies Active Allergy Reactions Criticality Noted Date Comments Penicillins Rash Medium Sulfa (Sulfonamide Antibiotics) Rash Medium 12/2015 Medications Medication Sig Dispensed Refills Start Date End Date Status PAP MACHINEIndications:C entral sleep apnea BiPAP autoSV Advanced or VPAP adapt SV auto Maximum pressure 25 Minimum EPAP 7 Maximum EPAP 20 Pressure support minimum 0 Pressure support max 18 Rate: auto Please check the patient's machine to make certain that the modem is working. 1 Each 0 02/22/2019 Active cholecalciferol 1,000 unit oral tablet Take 1,000 Units by mouth once daily. 0 Active polyethylene glycol 3350 (AKA: GLYCOLAX; MIRALAX) 17 gram oral Powder in Packet Take 17 g by mouth once daily. 0 Active memantine (NAMENDA) 10 mg oral TabletIndications:Va scular dementia without behavioral disturbance (HCC) Take 1 Tablet (10 mg) by mouth twice daily. 180 Tablet 3 08/26/2021 Active lisinopriL (ZESTRIL,PRINIVIL) 10 mg oral TabletIndications:Es sential hypertension Take 1 Tablet (10 mg) by mouth once daily. 90 Tablet 3 08/26/2021 Active donepeziL (ARICEPT) 10 mg oral TabletIndications:Va scular dementia without behavioral disturbance (HCC) Take 1 Tablet (10 mg) by mouth daily at bedtime. 90 Tablet 3 08/26/2021 Active cetirizine (ZYRTEC) 10 mg oral Tablet Take 10 mg by mouth once daily as needed for congestion. 0 Active ipratropium (ATROVENT) 21 mcg (0.03 %) nasal [place], Non-AerosolIndicatio ns:PND (post-nasal drip) 2 Sprays by each nostril route three times daily as needed (runny nose). 30 mL 0 08/26/2021 Active Additional Information Patient not taking.Reason: Not Available, Reported on 11/26/2021 PAP MACHINEIndications:C entral sleep apnea BiPAP autoSV Advanced or VPAP adapt SV auto Max EPAP: 15 Min EPAP: 7 Max PS: 15 Min PS: 0 1 Each 0 11/26/2021 Active dofetilide (TIKOSYN) 250 mcg oral CapsuleIndications:P AF (paroxysmal atrial fibrillation) (HCC) Take 1 Capsule (250 mcg) by mouth in the morning and 1 Capsule (250 mcg) in the evening. 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 2018 Encounter for monitoring dofetilide therapy 06/11 Atrial fibrillation (HCC) 06/21/2017 Essential hypertension 10/21/2016 Thoracic ascending aortic aneurysm 06/11/2016 Overview: 4.2 x 4.[address] [facility] Atrial flutter 11/15/2015 Esophageal dysmotility Overview: uses Reglan on a PRN basis Hearing loss Overview: wears hearing aids Hepatitis C antibody test positive Overview: negative quant RNA Resolved Problems Problem Noted Date Diagnosed Date Resolved Date Prostate cancer 01/03/2020 08/26/2021 Anticoagulated with warfarin 07/13/2019 04/08/2021 Persistent atrial fibrillation 11/26/2016 06/20/2018 Uncontrolled atrial flutter 10/18/2016 10/21/2016 Thoracic ascending aortic aneurysm 10/08/2016 Atrial fibrillation with RVR 10/21/2016 Encounters Date Type Department Care Team Description 05/27/2023 Chart Note [facility] Medication Management Anticoagulation [address] [place] [address] Marilyn Rios RN Chief Comp: Refill Request 05/27/2023 Refill [facility] [address] [place] [address] Bianka Loera, COMPLIANCE MANAGER Dx: Paroxysmal atrial fibrillation (HCC) from Last 3 Months Immunizations Name Administration Dates Next Due Influenza Vac, H1N1 07/23/2009 Influenza Vac, IM, Preserv F ree, Split Virus (Fluzone 65+) 05/10/2019,04/26/2018,03/30/2017,2015,05/28/2014 Influenza Vac, IM, Quadrival ent Preserv Free, (>6 months) 03/25/2021,03/12/2020,07/02/2015 Influenza Vac, IM, Trivalent (>3 Yrs) ,06/15/2012,03/26/2011,2009,07/23/2009,06/30/2008,05/09/2007,1 07/14/2005,06/03/2005 Pneumococcal Conj Vac, 13-va lent (Prevnar) 08/28/2016,08/28/2015 Pneumococcal Vac, 23-valent, IM-SQ (Pneumovax) 01/28/2010 SARS-COV-2, IM (COVID-19)(Pfizer)([place] Label) 11/04/2021 SARS-CoV-2, IM (COVID-19)(Pfizer)(Purple Label) 04/29/2021,09/05/2020,08/15/2020 Td, Tetanus/Diphtheria, IM, >7 Yrs 12/26/2002 Tdap Vaccine, IM, (Adacel)(Boostrix) 08/21/2013 Varicella Vaccine, SQ (Zostavax) 01/28/2010 Family History Medical History Relation Name Comments No Known Problems Daughter Cancer (other) Father Oral CA. in 70s. Cancer (other) Maternal Grandfather stoma ch cancer Dementia Mother Lived into late 70s. Otherwise healthy. Diabetes Paternal Grandfather Relation Name Status Comments Brother adopted Alive Daughter Alive Father (Age 76) Maternal Grandfather Mother (Age 81) Paternal Grandfather Son adopted Alive Social History Tobacco Use Types Packs/Day Years [...] often do you attend chur ch or mandaeism services? More than 4 times per year 04/04/2021 Do you belong to any clubs o r organizations such as yazidi groups, unions, fraternal or athletic groups, or [...] and heating? Not hard at all 04/04/2021 [facility] - Occupational Stress Questionnaire Answer Date [...] place to sleep or slept in a chcf (including now)? No 04/04/2021 Depression (PHQ-9) Answer Date Recorded Last PHQ-9 Score Not on file 08/27/2022 Thoughts of self harm Not at all 08/27/2022 Education Answer Date Recorded What is the highest level of school you have completed or the highest degree you have received? Master's degree (e.g., MA, MS, Mirlande, MEd, SOCKET WELDER HELPER, ROHIT) 08/19/2020 Sex and Gender Information Value Date Recorded Sex Assigned at Not on file Gender Identity Not on file Sexual Orientation Not on file Last Filed Vital Signs Vital Sign Reading Time Taken Comments Blood Pressure 122/78 12/16/2021 1:32 PM CDT Pulse 64 12/16/2021 1:32 PM CDT Temperature 36.9 ??C (98.4 ??F) 12/16/2021 1:32 PM CD T Respiratory Rate 16 12/16/2021 1:32 PM CDT Oxygen Saturation 97% 12/16/2021 1:32 PM CDT Inhaled Oxygen Concentration - - Weight 89.4 kg (197 lb) 03/03/2022 8:21 AM CDT Height 185.4 cm (6' 1) 03/03/2022 8:21 AM CDT Body Mass Index 25.99 03/03/2022 8:21 AM CDT Plan of Treatment Health Maintenance Due Date Last Done Comments Varicella Zoster Sequential (2 of 3) 03/25/2010 01/28/2010 PHQ-9 Depression Screening 08/26/2022 08/26/2021 COVID-19 Vaccine ( season) 2023 11/04/2021, 04/29/2021, 09/05/2020, Additional history exists Influenza Vaccine (#1) 2023 2, 03/25/2021, 03/12/2020, Additional history exists DTaP/Tdap/Td Vaccines (2 - Td or Tdap) 08/21/2023 08/21/2013, 12/26/2002 Lipids Standard 08/18/2024 08/18/2019, 08/13, 09/07/2017, Additional history exists Pneumococcal Vaccine (65+ Years) Completed 08/28/2016, 08/28/2015, 01/28/2010 Colonoscopy Discontinued 02/27/2020, 02/03/2010 Hepatitis C Testing Completed 08/26/2021, HIB Vaccines Aged Out No longer eligi ble based on patient's age to complete this topic HPV Vaccines Aged Out No longer eligi ble based on patient's age to complete this topic Hepatitis A Vaccines Aged Out No long er eligible based on patient's age to complete this topic Hepatitis B Vaccines Aged Out No long er eligible based on patient's age to complete this topic Meningococcal Vaccines Aged Out No lo nger eligible based on patient's age to complete this topic Advance Directives Documents on File Type Date Recorded Patient Pot Press Operator Expl anation Advanced Directives 08/23/2014 3:05 PM [facility] Latest Code Status on File Code Status Date Activated Date Inactivated Comments Full Code 06/21/2017 3:50 PM 06/24/2017 4:37 PM Code Status History Code Status Date Activated Date Inactivated Comments Full Code 10/19/2016 4:45 PM 10/20/2016 8:57 PM Full Code 11/15/2015 11:16 PM 11/16/2015 11:46 AM Care Teams Flight Kitchen Manager Relationship Specialty Start Date End Date Desiree Patrick MD [address] [place] [address] 08/09/17 Farrah Nicole APRN,DIRECTOR OF PRECLINICAL RESEARCH [address] [place] [address] 08/09/17 Bry Echevarria MD [address] [place] [address] [facility] [place] [phone] 08/09/17 Casey Berry II, DO 08/09/17 Shruti Vergara RN RN Registered Nurse 08/27/20 Additional Source Comments PLEASE NOTE: Replies to this message will not be received.[facility]
--- OUTSIDE RECORDS SUMMARY | 2023-08-16 11:18 | XMS_ITS | Encounter Summary ---
Author Name Unknown Organization [facility] Address [address] [place] [address] Care Team Providers Care Web Content Executive Name Role Phone Desiree Patrick MD Unavailable Farrah Nicole APRN, CNS Unavailable Bry Echevarria MD Unavailable [phone] Jamal CARLISLE DO, Robert William Unavailable Unav ailable Shruti Vergara RN Unavailable Unavailable Reason for Visit * Reason Comments Refill Request Encounter Details Date Type Department Care Team Description 05/27/2023 Refill [facility] Family Medicine [address] [place] [address] Bianka Loera, ATHLETIC SHOE DESIGNER [address] [place] [phone] Dx: Paroxysmal atrial fibrillation (HCC) Social History Tobacco Use Types Packs/Day Years [...] 04/04/2021 How often do you attend chur or anglican services? More than 4 times per year 04/04/2021 Do you belong to any clubs o r organizations such as voodoo groups, unions, fraternal or athletic groups, or [...] and heating? Not hard at all 04/04/2021 [facility] [place] of Occupat ional Health - Occupational Stress [...] place to sleep or slept in a senior living (including now)? No 04/04/2021 Depression (PHQ-9) Answer Date Recorded Last PHQ-9 Score Not on file 08/27/2022 Thoughts of self harm Not at all 08/27/2022 Education Answer Date Recorded What is the highest level of school you have completed or the highest degree you have received? Master's degree (e.g., MA, MS, Mirlande, MEd, CHAIN TESTING MACHINE OPERATOR, ROHIT) 08/19/2020 Sex and Gender Information Value [...] No 08/26/2021 documented as of this encounter Plan of Treatment Not on file documented as of this encounter Visit Diagnoses Diagnosis Paroxysmal atrial fibrillation (HCC) Atrial fibrillation senior care (current) use of anticoagulants Long-term (current) use of anticoagulants documented in this encounter Care Teams Web Content Executive Relationship Specialty Start Date End Date Desiree Patrick MD [address] [place] [address] 08/09/17 Farrah Nicole APRN,NECK BAND SETTER [address] [place] [address] 08/09/17 Bry Echevarria MD [address] [facility] [place] [address] 08/09/17 Casey Berry II, DO 08/09/17 Shruti Vergara, RN RN Registered Nurse 08/27/20 documented as of this encounter Additional Source Comments PLEASE NOTE: Replies to this message will not be received.[facility]
--- OUTSIDE RECORDS SUMMARY | 2023-08-16 11:19 | XMS_ITS | Encounter Summary ---
Author Name Unknown Organization [facility] [employer] [facility] Address [address] [place] [address] Care Team Providers Care Deputy Sheriff Bailiff Name Role Phone Desiree Patrick MD Unavailable Farrah Nicole APRN, CNS Unavailable Bry Echevarria MD Unavailable Jamal CARLISLE DO, Robert William Unavailable UnaShruti Rivera RN Unavailable Unavailable Reason for Visit * Reason Onset Date Comments Follow up 09/09/2022 Encounter Details Date Type Department Care Team Description 09/09/2022 Telephone [facility] Electrophysiology [address] [place] [address] Yanna Cleaning, RN Chief Comp: Follow up Social History Tobacco Use Types Packs/Day Years [...] How often do you attend chur or protestant services? More than 4 times per year 04/04/2021 Do you belong to any clubs o r organizations such as mandaen groups, unions, fraternal or athletic groups, or [...] and heating? Not hard at all 04/04/2021 [facility] of Occupat ional Health - Occupational Stress [...] place to sleep or slept in a fpc (including now)? No 04/04/2021 Depression (PHQ-9) Answer Date Recorded Last PHQ-9 Score Not on file 08/27/2022 Thoughts of self harm Not at all 08/27/2022 Education Answer Date Recorded What is the highest level of school you have completed or the highest degree you have received? Master's degree (e.g., MA, MS, Mirlande, MEd, HEATING ELEMENT WINDER, ROHIT) 08/19/2020 Sex and Gender Information Value [...] No 08/26/2021 documented as of this encounter Miscellaneous Notes * Telephone Encounter - Yanna Cleaning RN - 09/09/2022 11:40 AM CST Left message for Rohan to call us and let us know which provider is managing his Dofetilide. He is due for a refill. ORT FILLER documented in this encounter Plan of Treatment Not on file documented as of this encounter Visit Diagnoses Not on filedocumented in this encounter Care Teams Deputy Sheriff Bailiff Relationship Specialty Start Date End Date Desiree Patrick MD [address] [place] [address] 08/09/17 Farrah Nicole APRN,DEHAIRER [address] [place] [address] 08/09/17 Bry Echevarria MD [address] [place] [phone] 08/09/17 Casey Berry II, DO 08/09/17 Shruti Vergara, RN RN Registered Nurse 08/27/20 documented as of this encounter Additional Source Comments PLEASE NOTE: Replies to this message will not be received.[facility] and [facility]
--- OUTSIDE RECORDS SUMMARY | 2023-08-16 11:19 | XMS_ITS | Encounter Summary ---
Author Name Unknown Organization [facility] Address [address] [place] [address] Care Team Providers Care Baster Hand Name Role Phone Desiree Patrick MD Unavailable Farrah Nicole APRN,ARMATURE WINDER Unavailable Bry Echevarria MD Unavailable Jamal CARLISLE DO, Robert William Unavailable Unav ailable Shruti Vergara RN Unavailable Unavailable Reason for Visit * Reason Onset Date Comments Other 09/09/2022 Please call adriel ent, has transferred care, needs orders sent??? Encounter Details Date Type Department Care Team Description 09/09/2022 Telephone [facility] Pacemaker/ICD [address] [place] [address] Farrah Nicole APRN,ARMATURE WINDER [address] [place] [phone] Chief Comp: Other Social History Tobacco Use Types Packs/Day Years [...] How often do you attend chur or orthodox services? More than 4 times per year 04/04/2021 Do you belong to any clubs o r organizations such as oriental orthodox groups, unions, fraternal or athletic groups, or [...] and heating? Not hard at all 04/04/2021 [facility] of Occupat ional Health - Occupational Stress [...] place to sleep or slept in a longterm (including now)? No 04/04/2021 Depression (PHQ-9) Answer Date Recorded Last PHQ-9 Score Not on file 08/27/2022 Thoughts of self harm Not at all 08/27/2022 Education Answer Date Recorded What is the highest level of school you have completed or the highest degree you have received? Master's degree (e.g., MA, MS, Mirlande, MEd, LEARNING DESIGNER, ROHIT) 08/19/2020 Sex and Gender Information Value [...] on filedocumented in this encounter Care Teams Baster Hand Relationship Specialty Start Date End Date Desiree Patrick MD [address] [place] [address] 08/09/17 Farrah Nicole APRN,ARMATURE WINDER [address] [place] [address] 08/09/17 Bry Echevarria MD [address] [place] [phone] 08/09/17 Casey Berry II, DO 08/09/17 Shruti Vergara RN RN Registered Nurse 08/27/20 documented as of this encounter Additional Source Comments PLEASE NOTE: Replies to this message will not be received.[facility] and [facility]
--- OUTSIDE RECORDS SUMMARY | 2023-08-16 11:19 | XMS_ITS | Encounter Summary ---
Author Name Unknown Organization [facility] Address [address] [place] [address] Care Team Providers Care Fish Culturist Name Role Phone Desiree Patrick MD Unavailable Farrah Nicole APRN, CNS Unavailable Bry Echevarria MD Unavailable [phone] Jamal CARLISLE DO, Robert William Unavailable Unaruby ailShruti Marinelli RN Unavailable Unavailable Desiree Patrick MD Primary Care P rovider Encounter Details Date Type Department Care Team Description 02/25/[address] [address] Social History Tobacco Use Types Packs/Day Years [...] How often do you attend chur or congregation services? More than 4 times per year 04/04/2021 Do you belong to any clubs o r organizations such as rastafarian groups, unions, fraternal or athletic groups, or [...] and heating? Not hard at all 04/04/2021 [facility] [place] of Occupat ional Health - Occupational Stress [...] place to sleep or slept in a custodial (including now)? No 04/04/2021 Depression (PHQ-9) Answer Date Recorded Last PHQ-9 Score 3 08/22/2021 Thoughts of self harm Not at all 08/22/2021 Education Answer Date Recorded What is the highest level of school you have completed or the highest degree you have received? Master's degree (e.g., MA, MS, Mirlande, MEd, CHEF & OWNER, ROHIT) 08/19/2020 Sex and Gender Information Value [...] on file documented as of this encounter Procedures Procedure Name Priority Date/Time Associated Diagnosis Comments LAB/OUTSIDE LAB - S 02/25/2022 1:40 PM CDT documented in this encounter Results * LAB/OUTSIDE LAB - S (02/25/2022 1:40 PM CDT) Scan Elliot PROCEDURE NOTE documented in this encounter Visit Diagnoses Not on filedocumented in this encounter Care Teams Fish Culturist Relationship Specialty Start Date End Date Desiree Patrick MD [address] [place] [place] [address] PCP - General Electrophysiology 02/23/22 03/09/22 Desiree Patrick MD [address] [place] [address] 08/09/17 Farrah Nicole APRN,LOG YARD MANAGER [address] [place] [place] [address] 08/09/17 Bry Echevarria MD [address] [place] [address] 08/09/17 Casey Berry II, DO 08/09/17 Shruti Vergara RN RN Registered Nurse 08/27/20 documented as of this encounter Additional Source Comments PLEASE NOTE: Replies to this message will not be received.[facility]
--- OUTSIDE RECORDS SUMMARY | 2023-08-16 11:19 | XMS_ITS | Encounter Summary ---
Author Name Unknown Organization [facility] Address [address] [place] [address] Care Team Providers Care Email Production Specialist Name Role Phone Desiree Patrick MD Unavailable Farrah Nicole APRN, CNS Unavailable Bry Echevarria MD Unavailable [phone] Jamal CARLISLE DO, Robert William Unavailable UnaShruti Rivera RN Unavailable Unavailable Encounter Details Date Type Department Care Team Description 01/14/2023 Chart Note [facility] Electrophysiology [address] [place] [address] Marilyn Yost, STACY Social History Tobacco Use Types Packs/Day Years [...] How often do you attend chur or sabianism services? More than 4 times per year 04/04/2021 Do you belong to any clubs o r organizations such as scientology groups, unions, fraternal or athletic groups, or [...] and heating? Not hard at all 04/04/2021 [facility] of Occupat ionar Health - Occupational Stress Questionnaire Answer Date [...] place to sleep or slept in a prison (including now)? No 04/04/2021 Depression (PHQ-9) Answer Date Recorded Last PHQ-9 Score Not on file 08/27/2022 Thoughts of self harm Not at all 08/27/2022 Education Answer Date Recorded What is the highest level of school you have completed or the highest degree you have received? Master's degree (e.g., MA, MS, Mirlande, MEd, FINAL ASSEMBLY WORKER, ROHIT) 08/19/2020 Sex and Gender Information Value [...] of this encounter Nursing Notes * Marilyn Yost, STACY - 01/14/2023 11:49 AM CDT Rohan Carroll is overdue for his appointment with Farrah Nicole APRN, ALEX in the atrial fib clinic. Received a message that patient has switched to [facility] in [place] for his cardiac care. Will remove him from recall. documented in this encounter Plan of Treatment Not on file documented as of this encounter Visit Diagnoses Not on filedocumented in this encounter Care Teams Email Production Specialist Relationship Specialty Start Date End Date Desiree Patrick MD [address] [facility] [place] [address] 08/09/17 Farrah Nicole APRN, CNS [address] [place] [address] 08/09/17 Bry Echevarria MD [address] [place] [address] [place] [phone] 08/09/17 Casey Berry II, DO 08/09/17 Shruti Vergara RN RN Registered Nurse 08/27/20 documented as of this encounter Additional Source Comments PLEASE NOTE: Replies to this message will not be received.[facility] and [facility]
--- OUTSIDE RECORDS SUMMARY | 2023-08-16 11:19 | XMS_ITS | Encounter Summary ---
Author Name Unknown Organization [facility] Address [address] [place] [address] Care Team Providers Care Salon Leader Name Role Phone Desiree Patrick MD Unavailable Farrah Nicole APRN, CNS Unavailable [phone] Bry Echevarria MD Unavailable [phone] Jamal CARLISLE DO, Robert William Unavailable Unav ailable Shruti Vergara RN Unavailable Unavailable Reason for Visit * Reason Comments Refill Request Encounter Details Date Type Department Care Team Description 11/12/2022 Refill [facility] Family Medicine [address] [place] [address] Bianka Loera, MARKETING SERVICES SPECIALIST [address] [place] [phone] Dx: Vascular dementia without behavioral disturbance (HCC) (Primary Dx) Social History Tobacco Use Types Packs/Day Years [...] How often do you attend chur or samaritan services? More than 4 times per year 04/04/2021 Do you belong to any clubs o r organizations such as holiness groups, unions, fraternal or athletic groups, or [...] and heating? Not hard at all 04/04/2021 [facility] [place] of Occupat ional Health - Occupational Stress [...] Master's degree (e.g., MA, MS, Mirlande, MEd, GOLF COURSE RANGER, ROHIT) 08/19/2020 Sex and Gender Information Value [...] encounter Miscellaneous Notes * Telephone Encounter - Asher Cherry LPN - 11/16/2022 12:09 PM CDT Please deny this. Pt has a new primary provider.. * Telephone Encounter - Franchesca Jonas RN - 11/13/2022 3:53 PM CDT Refill Request PCP: No primary care provider on file. Last office visit: 08/26/21, Bianka Loera CNP Last refilled: 08/26/21 #180 +3, Bianka Loera CNP Unable to fill memantine per protocol. Failed Epic refill protocol. No PCP listed in chart. Per protocol, routed to provider for review. documented in this encounter Plan of Treatment Not on file documented as of this encounter Visit Diagnoses Diagnosis Vascular dementia without behavioral disturbance (HCC)- Primary Vascular dementia, uncomplicated documented in this encounter Care Teams Salon Leader Relationship Specialty Start Date End Date Desiree Patrick MD [address] [place] [address] 08/09/17 Farrah Nicole APRN,POULTRY VACCINATOR [address] [place] [address] 08/09/17 Bry Echevarria MD [address] [place] [address] 08/09/17 Casey Berry II, DO 08/09/17 Shruti Vergara RN RN Registered Nurse 08/27/20 documented as of this encounter Additional Source Comments PLEASE NOTE: Replies to this message will not be received.[facility] and [facility]
--- OUTSIDE RECORDS SUMMARY | 2023-08-16 11:19 | XMS_ITS | Encounter Summary ---
Author Name Unknown Organization [facility] Address [address] [place] [address] Care Team Providers Care Soil Surveyor Name Role Phone Desiree Patrick MD Unavailable Farrah Nicole APRN,GYPSUM CALCINER Unavailable Bry Echevarria MD Unavailable Jamal CARLISLE DO, Robert William Unavailable Unav ailShruti Marinelli RN Unavailable Unavailable Reason for Visit * Reason Comments Refill Request Encounter Details Date Type Department Care Team Description 09/08/[address] [facility] Electrophysiology [address] [place] [address] Farrah Nicole APRN,GYPSUM CALCINER [address] [place] [address] Dx: PAF (paroxysmal atrial fibrillation) (HCC) (Primary Dx) Social History Tobacco Use [...] week 04/04/2021 How often do you attend [facility] or jew services? More than 4 times per year 04/04/2021 Do you belong to any clubs o r organizations such as hindu groups, unions, fraternal or athletic groups, or [...] and heating? Not hard at all 04/04/2021 [facility] [place] of Occupat ional Health - Occupational Stress [...] place to sleep or slept in a retirement (including now)? No 04/04/2021 Depression (PHQ-9) Answer Date Recorded Last PHQ-9 Score Not on file 08/27/2022 Thoughts of self harm Not at all 08/27/2022 Education Answer Date Recorded What is the highest level of school you have completed or the highest degree you have received? Master's degree (e.g., MA, MS, Mirlande, MEd, BOARD MACHINE SET UP OPERATOR, ROHIT) 08/19/2020 Sex and Gender Information [...] Encounter - Yanna Cleaning RN - 09/09/2022 12:56 PM CST Pt now sees Dr. Fabien Rinaldi at [facility]. S WASHER AND CARRIER documented in this encounter Plan of Treatment Not on file documented as of this encounter Visit Diagnoses Diagnosis PAF (paroxysmal atrial fibrillation) (HCC)- Primary Atrial fibrillation documented in this encounter Care Teams Soil Surveyor Relationship Specialty Start Date End Date Desiree Patrick MD [address] [place] [address] 08/09/17 Farrah Nicole APRN,GYPSUM CALCINER [address] [place] [address] 08/09/17 Bry Echevarria MD [address] [place] [phone] 08/09/17 Casey Berry II, DO 08/09/17 Shruti Vergara RN RN Registered Nurse 08/27/20 documented as of this encounter Additional Source Comments PLEASE NOTE: Replies to this message will not be received.[facility] and [facility]
--- OUTSIDE RECORDS SUMMARY | 2023-08-16 11:19 | XMS_ITS | Encounter Summary ---
Author Name Unknown Organization [facility] Address [address] [place] [address] Care Team Providers Care Property Analyst Name Role Phone Desiree Patrick MD Unavailable Farrah Nicole APRN, CNS Unavailable Bry Echevarria MD Unavailable [phone] Jamal CARLISLE DO, Robert William Unavailable Unav ailable Shruti Vergara RN Unavailable Unavailable Reason for Visit * Reason Comments Refill Request Encounter Details Date Type Department Care Team Description 09/01/2022 Refill [facility] Family Medicine [address] [place] [address] Bianka Loera, PRINTING PRESS MACHINE OPERATOR [address] [place] [phone] Dx: Vascular dementia without behavioral disturbance (HCC) [...] How often do you attend chur or zoroastrian services? More than 4 times per year 04/04/2021 Do you belong to any clubs o r organizations such as mormon groups, unions, fraternal or athletic groups, or [...] and heating? Not hard at all 04/04/2021 [facility] [place] of Occupat ional Health - Occupational Stress [...] Master's degree (e.g., MA, MS, Mirlande, MEd, STENCILING MACHINE TENDER, ROHIT) 08/19/2020 Sex and Gender Information Value [...] uncomplicated documented in this encounter Care Teams Property Analyst Relationship Specialty Start Date End Date Desiree Patrick MD [address] [place] [phone] 08/09/17 Farrah Nicole APRN,IMAGING ASSISTANT [address] [place] [address] 08/09/17 Bry Echevarria MD [address] [place] [phone] 08/09/17 Casey Berry II, DO 08/09/17 Shruti Vergara RN RN Registered Nurse 08/27/20 documented as of this encounter Additional Source Comments PLEASE NOTE: Replies to this message will not be received.[facility] and [facility]
--- OUTSIDE RECORDS SUMMARY | 2023-08-16 11:19 | XMS_ITS | Encounter Summary ---
Author Name Unknown Organization [facility] [facility] Address [address] [place] [address] Care Team Providers Care Apron Operator Name Role Phone Desiree Patrick MD Unavailable Farrah Nicole APRN,CLIENT LIAISON Unavailable Bry Echevarria MD Unavailable Jamal CARLISLE DO, Robert William Unavailable Unav ailShruti Marinelli RN Unavailable Unavailable Reason for Visit * Reason Comments Refill Request Encounter Details Date Type Department Care Team Description 09/22/2022 Refill [facility] Electrophysiology [address] [place] [address] Farrah Nicole APRN,CLIENT LIAISON [address] [place] [address] Dx: PAF (paroxysmal atrial fibrillation) [...] week 04/04/2021 How often do you attend [facility] or druze services? More than 4 times per year 04/04/2021 Do you belong to any clubs o r organizations such as jehovah's witness groups, unions, fraternal or athletic groups, or [...] Not hard at all 04/04/2021 [facility] [place] of Occupat ional Health - Occupational Stress [...] place to sleep or slept in a fdc (including now)? No 04/04/2021 Depression (PHQ-9) Answer Date Recorded Last PHQ-9 Score Not on file 08/27/2022 Thoughts of self harm Not at all 08/27/2022 Education Answer Date Recorded What is the highest level of school you have completed or the highest degree you have received? Master's degree (e.g., MA, MS, Mirlande, MEd, FOOT SETTER, ROHIT) 08/19/2020 Sex and Gender Information Value [...] fibrillation documented in this encounter Care Teams Apron Operator Relationship Specialty Start Date End Date Desiree Patrick MD [address] [place] [phone] 08/09/17 Farrah Nicole APRN,CLIENT LIAISON [address] [place] [address] 08/09/17 Bry Echevarria MD [address] [place] [phone] 08/09/17 Casey Berry II, DO 08/09/17 Shruti Vergara, RN RN Registered Nurse 08/27/20 documented as of this encounter Additional Source Comments PLEASE NOTE: Replies to this message will not be received.[facility] and [facility]
--- OUTSIDE RECORDS SUMMARY | 2023-08-16 11:19 | XMS_ITS | Encounter Summary ---
Author Name Unknown Organization [employer] Address [address] [place] [address] Care Team Providers Care Vegetable Washer Name Role Phone Jamal CARLISLE DO, Robert William Primary Care Provide r Unavailable Desiree Patrick MD Unavailable Farrah Nicole APRN,LIFT SUPERVISOR Unavailable [phone] Bry Echevarria MD Unavailable [phone] Jamal CARLISLE DO, Robert William Unavailable Unav xiable Stephani Aleman MD Primary Care Provider Shruti Vergara RN Unavailable Unavailable Bianka Loera CNP Primary Care Provider Desiree Patrick MD Primary Care P rovider Encounter Details Date Type Department Care Team Description 09/08/[address] [facility] Family Medicine [address] [place] [id number] Casey Berry II, DO Social History Tobacco Use Types Packs/Day Years Used Date Smoking Tobacco: Former Cigarettes 1 18 Q uit: 1979 Smokeless Tobacco: Never Alcohol Use Standard Drinks/Week Comments Yes 12 (1 standard drink = 0.6 oz pu re alcohol) 1-2 beers daily Sex and Gender Information Value Date Recorded Sex Assigned at Not on file Gender Identity Not on file Sexual Orientation Not on file documented as of this encounter Functional Status Functional Status Response Date of Assess ment Are you deaf or do you have serious difficulty h earing? Yes 06/21/2017 Are you blind or do you have serious difficulty seeing, even when wearing glasses? No 06/21/2017 Do you have serious difficul ty walking or climbing stairs? No 06/21/2017 Do you have difficulty dressing or bathing? No 06/21/2017 Do you have difficulty doing errands alone such as visiting a doctor's office or shopping because of a physical, mental, or emotional condition? No 06/21/2017 Cognitive Status Response Date of Assessm ent Do you have trouble concentr ating, remembering, or making decisions because of a physical, mental, or emotional condition? No 06/21/2017 documented as of this encounter H&P Notes * Casey Berry II, DO - 09/08/2018 12:00 AM CST Assessment 1. Encounter for preventive health examination (V70.0) (Z00.00) 2. Former smoker: 0 - 10 pack years (V15.82) (Z87.891) 3. Afib (427.31) (I48.91) 4. Avitaminosis D (268.9) (E55.9) 1. Atrial fibrillation, heart rate sounds steady right now. 2. History of prostate cancer. 3. 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 4. Radiation cystitis with symptoms. Plan 1. We will contact Urology to see if there are any other medications that can be used. 2. He does not need a refill of any medications. 3. We will do a CBC, comp, folic acid, lipid, TSH, B12, vitamin D to look for causes of the ataxia and routine evaluation. PSA is done by other physicians. 4. Patient will be [facility] to [facility] to look into patient's current ataxic and balance difficulties. Plan Orders Afib, Avitaminosis D, Health Maintenance Amcinonide 0.1 % External Lotion; APPLY SPARINGLY AND MASSAGE IN TWICE DAILY CBC; Status:Resulted - Requires Verification; Done: 08Sep2018 09:12AM Comprehensive Metabolic Panel; Status:Resulted - Requires Verification; Done: 08Sep2018 09:12AM Lipid Panel; Status:Resulted - Requires Verification; Done: 08Sep2018 09:12AM Vitamin D Total [facility]; Status:Resulted - Requires Verification; Done: [id number] 09:12AM Ataxia Drawing Fee; Status:Complete; Done: 08Sep2018 [facility] Consult Consult Only Evaluation and Treatment Status: Hold For - Required information Requested for: [id number] Phone Number to Contact Patient: : See chart to Provider, Practice or Agency: : [facility] Folate; Status:Resulted - Requires Verification; Done: 08Sep2018 09:12AM TSH; Status:Resulted - Requires Verification; Done: 08Sep2018 09:12AM Vitamin B12; Status:Resulted - Requires Verification; Done: 08Sep2018 09:12AM Unlinked Oxybutynin Chloride ER 5 MG Oral Tablet Extended Release 24 Hour; TAKE 1 TABLET DAILY Pyridium 200 MG Oral Tablet; TAKE 1 TABLET EVERY 8 HOURS Reason For Visit Routine physical. History of Present Illness This is a 72-year-old male who is coming in today for routine physical. His only complaint is that he recently was seen by Urology for hematuria and pain with urination. He underwent cystoscopy whichshowed that he had radiation cystitis. He was given oxybutynin and Pyridium. He states that it is not helping too much. He no longer notes the blood, and he still has pain when he starts his urination . He feels overall it could be better, but he still has the pain. Review of Systems CONSTITUTIONAL:Denies weight loss, weight gain, fevers, chills, or night sweats. HEENT:Denies blurred vision, double vision, earache, sore throat, runny nose, congestion. CARDIOVASCULAR:Denies chest pain, palpitations, dyspnea on exertion. RESPIRATORY:Denies cough, congestion, runny nose. GI:Denies nausea, vomiting, diarrhea, constipation, melena, hematochezia, weight loss, weight gain. MS: Patient has been noticing some difficulty with gait, having some balance issues and ataxia. NEURO/PSYCH:Denies stroke, seizure, anxiety, or depression. ENDOCRINE:Denies polyuria, polydipsia, polyphagia, heat or cold intolerance, unusual alopecia. HEMATOLOGIC:Denies blood dyscrasias or anemia. : Please see History of Chief Complaint. Past Medical History 1. Abnormal PSA (795.89) (R97.20) 2. Afib (427.31) (I48.91) 3. Ascending aortic aneurysm (441.2) (I71.2) 4. Atrial fibrillation with RVR (427.31) (I48.91) 5. Atrial fibrillation, currently in sinus rhythm (427.31) (Z86.79) 6. Avitaminosis D (268.9) (E55.9) 7. CA of prostate (185) (C61) 8. Carcinoma of prostate (185) (C61) 9. Chronic anticoagulation (V58.61) (Z79.01) 10. Difficulty swallowing (787.20) (R13.10) 11. Dilated aortic root (447.71) (I77.810) 12. Hyperglycemia (790.29) (R73.9) 13. Leg pain (729.5) (M79.606) 14. Denied: History of Nicotine Dependence 15. Paroxysmal atrial fibrillation (427.31) (I48.0) 16. Paroxysmal tachycardia (427.2) (I47.9) 17. History of Vision Assessment 1. Atrial fibrillation. 2. 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 3. Hypertension. Surgical History 1. History of Colonoscopy (Fiberoptic) ?? due 02/04/2020 2. History of Hand Excision Of Tendon Cyst 1. Ganglion cyst. 2. Vasectomy. 3. Tube placement in the right ear. 4. External radiation for prostate cancer. Family History Mother 1. Family history of Alzheimer's disease (V17.2) (Z82.0) Father 2. Family history of type 2 diabetes mellitus (V18.0) (Z83.3) 3. Family history of Oral cancer Daughter 4. Family history of Healthy adult 5. Family history of Heart palpitations Maternal Grandfather 6. Family history of malignant neoplasm of stomach (V16.0) (Z80.0) Paternal Grandfather 7. Family history of type 2 diabetes mellitus (V18.0) (Z83.3) Paternal Aunt 8. Family history of type 2 diabetes mellitus (V18.0) (Z83.3) Father and had oral cancer. Mother had Alzheimer's. Diabetes runs in the family. Social History 1. Former smoker: 0 - 10 pack years (V15.82) (Z87.891) He does not smoke. He has rare caffeine, rare alcohol. 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 HEALTH CARE MAINTENANCE: Colonoscopy in 2009, due in 2019. Current Meds 1. Dofetilide 250 MCG Oral Capsule; TAKE 1 CAPSULE EVERY 12 HOURS; Last Rx:[id number] Ordered 2. Jantoven 5 MG Oral Tablet; TAKE 1 1/2 TABLET BY MOUTH ON WEDNESDAYS, AND 1 TABLET BY MOUTH ALL OTHER DAYS OF THE WEEK DIRECTED; Therapy: 13Apr2018 to (Evaluate:28Sep2018) Requested for: 10Shz4470; Last Rx:[id number] Ordered 3. Lisinopril 10 MG Oral Tablet; TAKE ONE TABLET DAILY; Therapy: 18Oct2017 to Recorded 4. Metoclopramide HCl - 5 MG Oral Tablet; TAKE 1 TABLET BY MOUTH THREE TIMES DAILY WITH MEALS NEEDED; Therapy: 10Sep2014 to (Evaluate:59Raz6802) Requested for: 86Vwr4285; Last Rx:[id number] Ordered 5. Oxybutynin Chloride ER 10 MG Oral Tablet Extended Release 24 Hour; TAKE 1 TABLET DAILY; Therapy: 27Lpz3128 to (Evaluate:81Lhn7878) Requested for: 89Dao8812; Last Rx:[id number] Ordered 6. Polyethylene Glycol 3350 Oral Powder; take 17 grams in 8 ounces of fluid once daily as needed for constipation; Therapy: 65Hfz5359 to (Evaluate:27May2018); Last Rx:[id number] Ordered 7. Sildenafil Citrate 100 MG Oral Tablet; Take 1/2-1 tab 1 hour before sexual activity; Therapy: 69Dng5524 to (Last Rx:[id number]) Requested for: 31Nxa2222 Ordered 8. Triamcinolone Acetonide 0.1 % External Lotion; APPLY 2-3 TIMES DAILY TO AFFECTED AREA(S); Therapy: 58Tad9474 to (Last Rx:[id number]) Requested for: 22Trb6843 Ordered Allergies 1. Penicillins 2. Sulfa Drugs PENICILLIN AND SULFA. Immunizations Tetanus in 2013. Pneumovax in 2009. Prevnar in 2016. Shingles shot 2009. We did discuss about Shingrix. Vitals Recorded: 08Sep2018 08:34AM Systolic 122, LUE, Sitting Diastolic 74, LUE, Sitting Heart Rate 58 Respiration 16 Temperature 97.6 F Height 184 cm Weight 204.6 lb BMI Calculated 27.41 BSA Calculated 2.16 O2 Saturation 98 Physical Exam EYES:Pupils equal, round, reactive to light and accommodation. Extraocular muscles intact. Funduscopic exam benign. EARS:Tympanic membrane intact, cone of light noted. THROAT:No erythema, no lesion. NECK:No adenopathy, bruits, thyroid enlargement. LYMPH NODES:No nodes in pre- and postauricular, anterior posterior cervical, axillary, epitrochlear, or inguinal. HEART:Regular rate and rhythm without murmur, S3, S4, gallop, or rub. PMI nondisplaced. LUNGS:Clear to auscultation without egophony, wheeze, bronchial breath sounds, change in tactile fremitus. ABDOMEN:Bowel sounds heard. No masses, no bruits, nontender, no hepatosplenomegaly, no jaundice, noLloyd's, no guarding, no rebound, no rigidity. EXTREMITIES:No clubbing, cyanosis, or edema. Capillary refill within two seconds. Pulses 2/4 bilaterally, upper and lower extremities. NEUROLOGIC:Alert and oriented x three. Cranial nerves II-XII grossly intact. Deep tendon reflexes 2/4 bilaterally, upper and lower extremities. Babinski's absent. Negative ankle clonus. Romberg negative. Gait normal. Cerebellar functions intact. SKIN:Warm and dry without rash. GENITALIA:No mass, lesions, or discharge. RECTAL:Heme negative. Prostate firm, no masses, nontender. Results/Data CBC [id number] 09:12AM Casey Berry FASTING Test Name Result Flag Reference WBC 2.8 K/uL L 4.0-11.0 RBC 4.96 M/uL 4.30-5.90 Hemoglobin 15.3 g/dl 13.0-17.0 Hematocrit 45.5 % 39-51 MCV 91.8 fL 81-99 MCH 30.8 pg 28-33 MCHC 33.5 g/dl 32-36 Platelets 154 K/uL 130-450 RDW-CV 13.3 % 11.5-16.0 MPV 8.0 fL 6.5-11 Neutrophil - Absolute Count 1.9 K/uL L 2.0-7.8 Lymphocyte - Absolute Count 0.4 K/uL L 1.0-4.0 Monocyte - Absolute Count 0.4 K/uL 0.1-1.0 Eosinophil - Absolute Count 0.1 K/uL 0.0-0.7 Basophil - Absolute Count 0.0 K/uL 0.0-0.2 Neutrophils % 67.5 % 40-75 Lymphocyte % 15.7 % 15-50 Monocytes % 13.8 % H 2-13 Eosinophils % 2.1 % 0-8 Basophils % 0.9 % 0-2 Comprehensive Metabolic Panel 08Sep2018 09:12 Casey Berry FASTING Test Name Result Flag Reference Calcium 9.1 mg/dl 8.8-10.8 Alkaline Phosphatase 62 u/l 32-122 Total Bilirubin 0.9 mg/dl 0.2-1.2 AST (SGOT) 33 u/l 9-37 ALT (SGPT) 24 u/l 8-41 Total Protein 7.7 g/dl 6.3-8.3 Albumin 4.6 g/dl 3.5-5.0 Glucose 93 mg/dl 70-100 Prediabetes >100-125 mg/dL Diabetes >/=126 mg/dL BUN 13 mg/dl 8-21 Creatinine 0.69 mg/dl L 0.70-1.20 GFR - Non >90 ml/min 60 or > GFR - >90 ml/min 60 or > Sodium 141 mmol/L 135-145 Potassium 4.3 mmol/L 3.5-5.1 Chloride 102 mmol/L 98-107 Carbon Dioxide 28 mmol/L 22-30 Lipid Panel 08Sep2018 09:12 Casey Berry FASTING Test Name Result Flag Reference Cholesterol 92 mg/dl < 200 Triglycerides 59 mg/dl < 150 HDL 43 mg/dl 40 or > LDL - Calculated 37 mg/dl < 130 *L/H Ratio 0.9 L 1.0-4.7 Vitamin D Total [facility] 08Sep2018 09:12 Casey Berry Test Name Result Flag Reference Vitamin D Total - [facility] 20.9 ng/ml L 30-100 Deficiency <10ng/mL Insufficiency 10-29 ng/mL Sufficiency 30-100 ng/mL Possible Toxicity >100 ng/mL TSH [id number] 09:12 Casey Berry FASTING Test Name Result Flag Reference TSH 1.670 uIU/ml 0.30-4.70 Vitamin B12 08Sep2018 09:12AM Casey Berry Test Name Result Flag Reference Vitamin B12 382 pg/ml 200-1000 Folate [id number] 09:12AM Casey Berry Test Name Result Flag Reference Folate >20.0 ng/ml H 6.6-19.9 Signatures Casey Berry II, D.O./jaj-28 REVISED NOTE 09/12/2018/naomie Electronically signed by : Casey Berry DO; Sep 09 2018 11:14AM CARPET CUTTER Electronically signed by : Casey Berry DO; Sep 12 2018 9:09AM CARPET CUTTER documented in this encounter Plan of Treatment Not on file documented as of this encounter Visit Diagnoses Not on filedocumented in this encounter Care Teams Vegetable Washer Relationship Specialty Start Date End Date Casey Berry II, DO PCP - General 11/22/06 08/17/19 Stephani Aleman MD PCP - General Family Medicine 08/18/19 09/16/20 Bianka Loera, TACKER ELASTIC BAND [address] [place] [phone] PCP - General Nurse Practitioner Family 09/17/20 712/31 Desiree Patrick MD [address] [place] [address] PCP - General Electrophysiology 02/23/22 03/09/22 Desiree Patrick MD [address] [place] [address] 08/09/17 Farrah Nicole APRN,LIFT SUPERVISOR [address] [place] [address] 08/09/17 Bry Echevarria MD [address] [place] [address] 08/09/17 Casey Berry II, DO 08/09/17 Shruti Vergara RN RN Registered Nurse 08/27/20 documented as of this encounter Additional Source Comments PLEASE NOTE: Replies to this message will not be received.[facility] and [facility]
--- OUTSIDE RECORDS SUMMARY | 2023-08-16 11:19 | XMS_ITS | Encounter Summary ---
Author Name Unknown Organization [facility] [employer] [facility] Address [address] [place] [address] Care Team Providers Care Commodity Merchant Name Role Phone Desiree Patrick MD Unavailable Farrah Nicole APRN,ANHYDROUS AMMONIA PRODUCTION SUPERVISOR Unavailable Bry Echevarria MD Unavailable Jamal CARLISLE DO, Robert William Unavailable Unav ailShruti Marinelli RN Unavailable Unavailable Reason for Visit * Reason Comments Refill Request Encounter Details Date Type Department Care Team Description 09/25/2022 Refill [facility] Electrophysiology [address] [place] [address] Farrah Nicole APRN,ANHYDROUS AMMONIA PRODUCTION SUPERVISOR [address] [place] [address] Dx: PAF (paroxysmal atrial fibrillation) [...] week 04/04/2021 How often do you attend [facility] or yazidism services? More than 4 times per year 04/04/2021 Do you belong to any clubs o r organizations such as orthodox groups, unions, fraternal or athletic groups, [...] and heating? Not hard at all 04/04/2021 [facility] Occupat ional Health - Occupational Stress [...] have received? Master's degree (e.g., MA, MS, Mirlaned, MEd, TEACHER [employer]ATER [employer], [employer]OH[employer]) 08/19/2020 Sex and Gender Information Value [...] fibrillation documented in this encounter Care Teams Commodity Merchant Relationship Specialty Start Date End Date Desiree Patrick MD [address] [place] [phone] 08/09/17 Farrah Nicole APRN,ANHYDROUS AMMONIA PRODUCTION SUPERVISOR [address] [place] [address] 08/09/17 Bry Echevarria MD [address] [place] [phone] 08/09/17 Casey Berry II, DO 08/09/17 Shruti Vergara, RN RN Registered Nurse 08/27/20 documented as of this encounter Additional Source Comments PLEASE NOTE: Replies to this message will not be received.[facility] and [facility]
--- OUTSIDE RECORDS SUMMARY | 2023-08-16 11:19 | XMS_ITS | Encounter Summary ---
Author Name Unknown Organization [employer] Address [address] [place] [address] Care Team Providers Care Milieu Manager Name Role Phone Jamal CARLISLE DO, Robert William Primary Care Provide r Unavailable Desiree Patrick MD Unavailable Farrah Nicole APRN,CLINICAL NURSING PROFESSOR Unavailable [phone] Bry Echevarria MD Unavailable Jamal CARLISLE DO, Robert William Unavailable Unav Stephani Diaz MD Primary Care Provider Shruti Vergara RN Unavailable Unavailable Bianka Loera CNP Primary Care Provider [phone] Desiree Patrick MD Primary Care P rovider Encounter Details Date Type Department Care Team Description 09/08/2018 Historical Conversion [facility] Family Medicine [address] [place] [address] Casey Berry II, DO Social History Tobacco [...] Sign Reading Time Taken Comments Blood Pressure 122/74 09/08/2018 12:00 AM DISPATCHER SERVICE Pulse - - Temperature - - Respiratory Rate - - Oxygen Saturation - - Inhaled Oxygen Concentration - - Weight 92.8 kg (204 lb 9.7 oz) 09/08/2018 12:00 AM DISPATCHER SERVICE Height 184 cm (6' 0.44) 09/08/2018 12:00 AM DISPATCHER SERVICE Body Mass Index 27.41 09/08/2018 12:00 AM DISPATCHER SERVICE documented in this encounter Functional Status Functional Status Response [...] No 06/21/2017 documented as of this encounter Plan of Treatment Not on file documented as of this encounter Visit Diagnoses Not on filedocumented in this encounter Care Teams Milieu Manager Relationship Specialty Start Date End Date Casey Berry II, DO PCP - General 11/22/06 08/17/19 Stephani Aleman MD PCP - General Family Medicine 08/18/19 09/16/20 Bianka Loera CNP [address] [facility] [address] [place] [address] PCP - General Nurse Practitioner Family 09/17/20 712/31 Desiree Patrick MD [address] [facility] [place] [address] PCP - General Electrophysiology 02/23/22 03/09/22 Desiree Patrick MD [address] [place] [address] 08/09/17 Farrah Nicole APRN,CLINICAL NURSING PROFESSOR [address] [place] [address] 08/09/17 Bry [facility]varria MD [address] [facility] [place] [address] 08/09/17 Casey Berry II, DO 08/09/17 Shruti Vergara RN RN Registered Nurse 08/27/20 documented as of this encounter Additional Source Comments PLEASE NOTE: Replies to this message will not be received.[facility]
--- OUTSIDE RECORDS SUMMARY | 2023-08-16 11:19 | XMS_ITS | Encounter Summary ---
Author Name Unknown Organization [facility] Address [address] [place] [address] Care Team Providers Care Frame Hand Name Role Phone Jamal CARLISLE DO, Robert William Primary Care Provide r Unavailable Desiree Patrick MD Unavailable Farrah Nicole APRN,PLANT ATTENDANT Unavailable Bry Echevarria MD Unavailable [phone] Jamal CARLISLE DO, Robert William Unavailable Unav Stephani Diaz MD Primary Care Provider Shruti Vergara RN Unavailable Unavailable Bianka Loera CNP Primary Care Provider [phone] Desiree Patrick MD Primary Care P rovider Encounter Details Date Type Department Care Team Description 02/06/2019 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 PROCEDURE: Transthoracic, two-dimensional, and M-mode echocardiography was performed from the parasternal, apical, and subcostal windows. Simultaneous pulsed-wave, continuous wave and color flow Doppler was performed. IMAGE QUALITY: Adequate ECG RHYTHM: Sinus RESULTS LEFT ATRIUM: Appears mildly enlarged. MITRAL VALVE: Normal structure and function with mild mitral regurgitation present. LEFT VENTRICLE: Normal in size, function, and wall thickness. Estimated left ventricular systolic function is 55-60%. No regional wall motion abnormalities visualized. Diastolic function is indeterminate. AORTIC VALVE: Trileaflet in structure with aortic valve sclerosis. There is no evident aortic stenosis. There is mild aortic insufficiency visualized. 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 RIGHT ATRIUM: Normal in size. TRICUSPID VALVE: Normal in structure and function with mild tricuspid regurgitation present. Estimated right ventricular systolic pressure is 29 mmHg plus RA pressure. RIGHT VENTRICLE: Grossly normal in size and function. PULMONIC VALVE: Normal in structure and function. There is mild pulmonic insufficiency. PERICARDIUM: No pericardial effusion present. ADDITIONAL COMMENTS: Inferior vena cava is normal in size, normal respiratory variation. CONCLUSION: 1. Normal left ventricular systolic function estimated at 55-60%. No regional wall motion abnormality is visualized. 2. Mild left atrial enlargement. 3. Mild mitral regurgitation. 4. Mild pulmonic insufficiency. 5. Mild aortic insufficiency. 6. Mild tricuspid regurgitation. 7. No pericardial effusion present. 8. 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 9. Inferior vena cava is normal in size, normal respiratory variation. 10. When compared to prior from January 06, 2017, there does not appear to be significant change in left ventricular systolic function. Note: This study was performed by [facility]. Only the interpretation was performed at the [facility] [place]. Electronically signed Rakesh Williamson MD Lean Coach , 06:42 A A felipa/Doc#: [id number] cc: Antoine Fitzpatrick MD Adult Normal Value Adult Patient Values AORTIC VALVE Sinuses of Valsalva M < 38 mm W < 34 mm 42 Prox. Acs AO M < 35 mm W < 32 mm 39 LEFT ATRIUM M < 30-40 mm W < 27-38 39 LA VOLUME INDEX < 35 ml/m2 49 LEFT VENTRICULAR INTERNAL DIMENSION Diastole Systole M < 42-58 mm W < 38-52 56 44 INTERVENTRICULAR SEPTUM Diastole < 11 mm 14 LEFT VENTRICULAR POSTERIOR WALL Diastole < 11 mm 10 EF 55-60 % DOPPLER Pulmonary V: PI PS Velocity M/S mmHg Aortic V: Peak Velocity 1.39 m/s LVOT 2.4 cm PW m/s CW m/s KAROLINA 2.7 cm2 DVI AI P1/2 T 847 Mean Grad 4.3 mmHg Peak Grad 8 mmHg Mitral V: MR EROA cm2 Reg. Vol. ml Vena Cont cm MS Valve Area _ cm2 Mn Grad _ _mmHg Tricuspid V: TR Velocity 2.64 M/S 29(+RAP) mmHgpp Diastolic Fx: MV E/A 0.88 MV dt 190 ms E' sept cm/sec IVRT ms E/e' E' lat cm/sec IMPRESSION: Patient height: 6' Patient weight: 203# Blood pressure: 139/86 mmHg Previous study: 01/06/2017 Geospatial Technologist: KRISTA documented in this encounter Plan of Treatment Not on file documented as of this encounter Procedures Procedure Name Priority Date/Time Associated Diagnosis Comments ECHOCARDIOGRAM TRANSTHORACIC ADULT WITH OR WITHOUT CONTRAST 02/06/2019 documented in this encounter Results * ECHOCARDIOGRAM TRANSTHORACIC ADULT WITH OR WITHOUT CONTRAST (02/06/2019) Anatomical Region Laterality Modality Other 02/06/2019 Narrative Procedure Note Rakesh Williamson Chi, MD - 02/06/2019 12:00 AM CDT PERFORMED BY: [place]: [place] INTERPRETED BY: [facility], [place] TRANSTHORACIC ECHOCARDIOGRAM REPORT REFERRING DIAGNOSIS: Sleep apnea and Oscar-Rose breathing. PROCEDURE: Transthoracic, two-dimensional, and M-mode echocardiographywas performed from the parasternal, apical, and subcostal windows.Simultaneous pulsed-wave, continuous wave and color flow Doppler wasperformed. IMAGE QUALITY: Adequate ECG RHYTHM: Sinus RESULTS LEFT ATRIUM: Appears mildly enlarged. MITRAL VALVE: Normal structure and function with mild mitralregurgitation present. LEFT VENTRICLE: Normal in size, function, and wall thickness. Estimatedleft ventricular systolic function is 55-60%. No regional wall motionabnormalities visualized. Diastolic function is indeterminate. AORTIC VALVE: Trileaflet in structure with aortic valve sclerosis.There is no evident aortic stenosis. There is mild aortic insufficiencyvisualized. AORTA: There is aortic dilatation present in the sinus of Valsalvameasuring 4.2 cm. RIGHT ATRIUM: Normal in size. TRICUSPID VALVE: Normal in structure and function with mild tricuspidregurgitation present. Estimated right ventricular systolic pressure is 29mmHg plus RA pressure. RIGHT VENTRICLE: Grossly normal in size and function. PULMONIC VALVE: Normal in structure and function. There is mildpulmonic insufficiency. PERICARDIUM: No pericardial effusion present. ADDITIONAL COMMENTS: Inferior vena cava is normal in size, normalrespiratory variation. CONCLUSION: 1. Normal left ventricular systolic function estimated at 55-60%. Noregional wall motion abnormality is visualized. 2. Mild left atrial enlargement. 3. Mild mitral regurgitation. 4. Mild pulmonic insufficiency. 5. Mild aortic insufficiency. 6. Mild tricuspid regurgitation. 7. No pericardial effusion present. 8. 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 9. Inferior vena cava is normal in size, normal respiratory variation. 10. When compared to prior from January 06, 2017, there does not appear to besignificant change in left ventricular systolic function. Note: This study was performed by [facility]. Only theinterpretation was performed at the [facility]. Electronically signed Rakesh Williamson MD Lean Coach , 06:42 A A felipa/Doc#: [id number] cc: Antoine Fitzpatrick MD Adult Normal Value Adult Patient Values AORTIC VALVE Sinuses of Valsalva M < 38 mm W < 34 mm 42 Prox. Acs AO M < 35 mm W < 32 mm 39 LEFT ATRIUM M < 30-40 mm W < 27-38 39 LA VOLUME INDEX < 35 ml/m2 49 LEFT VENTRICULAR INTERNAL DIMENSION Diastole Systole M < 42-58 mm W < 38-52 56 44 INTERVENTRICULAR SEPTUM Diastole < 11 mm 14 LEFT VENTRICULAR POSTERIOR WALL Diastole < 11 mm 10 EF 55-60 % DOPPLER Pulmonary V: PI PS Velocity M/S mmHg Aortic V: Peak Velocity 1.39 m/s LVOT 2.4 cm PW m/s CWm/s KAROLINA 2.7 cm2 DVI AI P1/2 T 847Mean Grad 4.3 mmHg Peak Grad 8 mmHg Mitral V: MR EROA cm2 Reg. Vol. ml Vena Cont cm MS Valve Area _ cm2 Mn Grad _ _mmHg Tricuspid V: TR Velocity 2.64 M/S 29(+RAP) mmHgpp Diastolic Fx: MV E/A 0.88 MV dt 190 ms E' sept cm/sec IVRTms E/e' E' lat cm/sec IMPRESSION: Patient height: 6' Patient weight: 203# Blood pressure: 139/86 mmHg Previous study: 01/06/2017 Geospatial Technologist: KRISTA Antoine Fitzpatrick MD,PHD CAR ULTRASOU [place] documented in this encounter Visit Diagnoses Not on filedocumented in this encounter Care Teams Frame Hand Relationship Specialty Start Date End Date Casey Berry II, DO PCP - General 11/22/06 08/17/19 Stephani Aleman MD PCP - General Family Medicine 08/18/19 09/16/20 Bianka Loera, [employer] [address] [place] [id number] PCP - General Nurse Practitioner Family 09/17/20 712/31 Desiree Patrick MD [address] [place] [address] PCP - General Electrophysiology 02/23/22 03/09/22 Desiree Patrick MD [address] [place] [address] 08/09/17 Farrah Nicole APRN,[facility] [address] [place] [address] 08/09/17 Bry Echevarria MD [address] [place] [address] [place] [id number] 08/09/17 Casey Berry II, DO 08/09/17 Shruti Vergara RN RN Registered Nurse 08/27/20 documented as of this encounter Additional Source Comments PLEASE NOTE: Replies to this message will not be received.[facility]
--- OUTSIDE RECORDS SUMMARY | 2023-08-16 11:19 | XMS_ITS | Encounter Summary ---
Author Name Unknown Organization [facility] Address [address] [place] [address] Care Team Providers Care Watch Crystal Grinder Name Role Phone Jamal CARLISLE DO, Robert William Primary Care Provide r Unavailable Desiree Patrick MD Unavailable Farrah Nicole APRN,PRODUCTION METAL SPRAYER Unavailable Bry Echevarria MD Unavailable [phone] Jamal CARLISLE DO, Robert William Unavailable Unav xiable Stephani Aleman MD Primary Care Provider [phone] Shruti Vergara RN Unavailable Unavailable Bianka Loera CNP Primary Care Provider Desiree Patrick MD Primary Care P rovider Encounter Details Date Type Department Care Team Description 09/19/[address] [facility] Family Medicine [address] [place] [id number] Trish Barone, PT Social History Tobacco Use Types Packs/Day Years [...] No 06/21/2017 documented as of this encounter Progress Notes * Trish Barone, PT - 10/12/2018 12:00 AM CDT [facility] : 1945 DOS: 10/12/2018 SUBJECTIVE: Patient offers no complaints. OBJECTIVE: Today patient received 30 minutes of therapeutic exercise and 10 minutes of neuromuscular reeducation with the following activities: 1. Patient completed heel cord stretching 30 seconds hold, 3 repetitions for each lower extremity in a standing position with forefoot propped up on a 2 inch block. Handout for this exercise was provided for home reference. Patient is to complete this exercise 3 times a day and received multiple verbal cues not to cause pain. 2. Single-leg hamstring stretch, seated on the edge of a chair. 30 second hold, 3 reps completed bilaterally. Handout provided for home reference. Patient is instructed to do this exercise 3 times a day and demonstrated proper technique. 3. Patient was taught sit to stand strengthening from a 25.5 inch seat height with emphasis on protecting these by keeping them behind the toes active hip abduction and external rotation to engage the lateral gluteals. Patient completed 1 set of 10 repetitions with notable fatigue. 4. Terminal knee extension with green Thera-Band for resistance was completed 20 repetitions bilaterally. Patient received home handout for home reference and was supplied with 4 feet of green Thera-Band for this exercise. Dynamic gait training: Patient was instructed to increase the length of his stride and increased his speed. He practiced this without successfully demonstrating terminal knee extension during heel strike or mid stance bilaterally. He lacks a clean heel strike due to the foot drop bilaterally. ASSESSMENT: Imbalance. Muscle tightness. Muscle weakness. Lacks terminal knee extension bilaterallyand has bilateral foot drop. PLAN: Continue 1 time a week for 6 weeks. Progress dynamic gait training to include single leg stance lateral gluteal strengthening with cone taps, high marching sidestepping and stepping over blocks. Patient received: 30 minutes of therapeutic exercise and 10 minutes of neuromuscular reeducation. Trish Barone MA, PT #[id number] Electronically signed by:Trish Barone PT Oct 12 2018 5:27PM PROCESSOR SOLID PROPELLANT AMENDMENTS: 1. Patient received 4 feet of green theraband on this date of service. Electronically signed by:Trish Barone PT Oct 12 2018 5:28PM PROCESSOR SOLID PROPELLANT * Trish Barone, PT - 10/03/2018 12:00 AM CDT [facility] : 1945 DOS: 10/03/2018 SUBJECTIVE: Patient reports no significant change following last appointment. Patient has a sense of dizziness when he transfers from sit to stand. Patient has a history of spinal stenosis affecting the right lower extremity, prostate cancer with external radiation. Cancer is now in remission. Patient has had no falls in the past 6 months. Patient drinks 3-4 8 ounce glasses of water per day. Denies caffeine. One beer per day, for beers per week. Activity level: [place] and[place]eps busy with outdoor activities. 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 He attends [employer] with his 2 times a week. OBJECTIVE: Observations: Bilateral foot drop walking into the balance center today. Orthostatic screen: Seated blood pressure taken manually with the left upper extremity: 140/68. Initial standing blood pressure: 128/78. Resting pulse 48 bpm. Pulse oxygen saturation 95%. Musculoskeletal system: Lower extremity strength: Hip flexors: Right 4/5, left 5/5. Hip abductor's:4/5 bilaterally. Hip adductor's: 5/5 bilaterally. Knee extension: 5/5 bilaterally. Knee flexion: 5/5 bilaterally. Ankle dorsiflexion: Right 3/5, left 5/5. Ankle plantar flexion: Right 3+/5, left 5/5 measured against manual resistance. Functionally patient is unable to lift up onto his toes in a standing position. Lower extremity flexibility: Heel cord tightness is minimal with 15 degrees passive dorsiflexion atthe ankle with knee extended bilaterally. Hamstring flexibility: Straight leg raise 50 degrees bilaterally in supine position. Neuromuscular system: Deep tendon reflexes: 2/4 patellar bilaterally. Unable to elicit bilateral Achilles tendon reflexes with Jandrassik maneuver. Functional tests: Functional gait assessment: . Please see scanned document for scoring of individual items. Discussed the test results with patient and the mean score for individuals his age 24.9,'s with a standard deviation of 3.6. We discussed the goal of patient finishing physical therapy with a score of 25-28 [address] him in the first standard deviation above the mean. ASSESSMENT: 1. Imbalance. 2. Signs of peripheral neuropathy: Impaired vibrational sense in bilateral feet, impaired Achilles deep tendon reflexes bilaterally and findings of L4 through S1 myotome weakness in the right lower extremity. 3. Increased risk of falls as noted with his functional gait assessment score. PLAN: Patient will return 1 time a week for instruction in home exercise program and dynamic balance training. Will recheck vestibular system with positional testing given the significant imbalance he demonstrated with horizontal head turns. Patient was encouraged to discuss consultation with neurosurgeon with Dr. Berry. Patient agreed with this plan of care. Patient received: 45 minutes of physical performance testing. Trish Barone MA, PT #[id number] Electronically signed by:Trish Barone PT Oct 03 2018 1:23PM PROCESSOR SOLID PROPELLANT * Trish Barone, PT - 09/19/2018 12:00 AM CDT [facility] : 1945 HX: [id number] DOS: 09/19/2018 REFERRING PROVIDER: Casey Berry D.O. PRIMARY DIAGNOSIS: Ataxia. SUBJECTIVE: CHIEF COMPLAINT: Patient is a 72-year-old male. Patient was last seen on 09/08/[address] Berry for a well visit routine physical, at which time Dr. Berry made a referral to the [facility] for ataxia and poor balance. Patient was currently complaining of positional dizziness with bending and reaching and when he tilts his head forward. He reports that he becomes unsteady with this activity and duration of the dizziness lasts seconds to minutes. Patient reports that he cannot do heel-to-toe tandem walking and/or tiptoe walking. He reports that he is off-balance while standing or with uprightambulation. MEDICATIONS: Dofetilide, Jantoven, lisinopril, metoclopramide HCL, oxybutynin chloride ER, polyethylene glycol, Pyridium, sildenafil citrate, triamcinolone acetonide. PMH: Abnormal PSA, atrial fibrillation, ascending aortic aneurysm, ataxia, atrial fibrillation withRVR, avitaminosis D, CA of prostate, chronic anticoagulation, difficulty swallowing, dilated aorticroot, disorder of spine, dysuria, essential hypertension, hyperglycemia, paroxysmal tachycardia. FAMILY HISTORY: Maternal: Alzheimer's disease. Paternal: History of oral cancer and type 2 diabetes mellitus. 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 He is currently living in a house with his spouse in a two-level home with two stairs to enter and 13 stairs to the second level. Patient has two children thatare grown. He reports rare caffeine use, rare alcohol use. He denies tobacco use, quitting in approximately 1978, and denies recreational drug use. OBJECTIVE: Cardiovascular Screen: BP 118/76. HR: 75. SPO2%: 96%. Oculomotor screen: Smooth Pursuit: Saccadic with vertical plain smooth pursuit in both right and left gaze blankenship. Convergence/Divergence: Normal. Vestibular: Positional testing (Frenzel goggles donned) results as follows: R DH: Right beat nystagmus, negative for dizziness in the head hang position. Right rotational downbeat nystagmus upon return to sitting, positive for dizziness. L DH: Left beat nystagmus, negative for dizziness in the head hang position. Right beat nystagmus with return to sitting, positive for dizziness mildly. Bilateral SRT: Geotropic, negative for dizziness. BOW: Right beat nystagmus. Neuromuscular: DTR???s: Patellar: Normal. Achilles: Normal. Sensory: Vibrational sense: Left Leg: First metatarsal head: Delayed. Medial and lateral malleolus delayed. Ansari: Delayed. Knee: Delayed. Right Leg: Foot: Absent. Ankle: Absent. Ansari: Absent. Knee: Delayed. Cerebellar signs: THEA: Normal. Heel/ansari: Normal. Finger/nose/finger test: Normal. Tone: No increased resistance to passive motion appreciated in bilateral lower extremities. Functional Outcome measures: ABC: Total score: 73.5%. MCTSIB: Firm EO: 30 seconds. Firm EC: 15, 10, 20 seconds over 3 trials. Average: 15 seconds. Foam EO: 30 seconds. Foam EC: 5, 15, 10 seconds over 3 trials. Average: 10 seconds. Total score: 85/120. Please see scanned documents for scoring of individual items. Pretreatment Walk Test: Patient has right veer and subjective imbalance with vertical head tips. Patient has stable gait and no subjective dizziness with horizontal head turns. During ambulation patient does demonstrate a left Trendelenburg gait. Treatment provided: Patient received a right anterior canal Semont maneuver for right anterior canal cupulolithiasis. Patient was educated on positional restriction recommendations of not bending over at his waist and not lying flat until bedtime tonight. Patient verbalizes understanding. Posttreatment Walk Test: Patient has decreased veering to the right and no subjective imbalance with vertical head tips following repositioning maneuvers. ASSESSMENT: #1) Right ear BPPV. #2) Multifactorial imbalance. #3) Delayed vibrational sense in bilateral lower extremities. PLAN: Patient is to follow up in one to two weeks for recheck of BPPV. Will assess dynamic balance using the Functional Gait Assessment and will receive canalith repositioning maneuvers as needed/indicated. FREQUENCY AND DURATION: Patient will be seen one to two times per week for the next eight to ten weeks. GOALS: #1) Patient will be asymptomatic of BPPV and demonstrate stable gait patterns with functional head movements while ambulating within three to five treatments to allow return to full participation in ADLs, IADLs and recreational activities. #2) Patient will demonstrate stable gait with functional head movements on firm even ground within six to eight weeks to decrease risk of falling while ambulating within the community and attending to other pedestrians, vehicles, and directional signs above the level of the head. #3) Patient will demonstrate an FGA score within one standard deviation of his age range to mean score to demonstrate improved ability with functional gait activities and improve dynamic stability todecrease risk of falls and improve participation in recreational activities. PATIENT RECEIVED: Patient received 30 minutes of [id number] evaluation with three or more comorbidities and three or more elements addressed. Clinical presentation is evolving and clinical complexity is moderate. Patient also received canalith repositioning maneuvers on this date. Trish Barone, PT, MA #[id number] Electronically signed by:Trish Barone PT Sep 26 2018 8:37AM PROCESSOR SOLID PROPELLANT documented in this encounter Plan of Treatment Not on file documented as of this encounter Visit Diagnoses Not on filedocumented in this encounter Care Teams Watch Crystal Grinder Relationship Specialty Start Date End Date Casey Berry II, DO PCP - General 11/22/06 08/17/19 Stephani Aleman MD PCP - General Family Medicine 08/18/19 09/16/20 Bianka Loera CNP [address] [place] [address] [address] [place] [address] PCP - General Nurse Practitioner Family 09/17/2001/10 Desiree Patrick MD [address] [place] [place] [address] PCP - General Electrophysiology 02/23/22 03/09/22 Desiree Patrick MD [address] [place] [address] 08/09/17 Farrah Nicole APRN,PRODUCTION METAL SPRAYER [address] [place] [place] [address] 08/09/17 Bry Echevarria MD [address] [place] [phone] 08/09/17 Casey Berry II, DO 08/09/17 Shruti Vergara, RN RN Registered Nurse 08/27/20 documented as of this encounter Additional Source Comments PLEASE NOTE: Replies to this message will not be received.[facility] and [facility]
--- OUTSIDE RECORDS SUMMARY | 2023-08-16 11:19 | XMS_ITS | Encounter Summary ---
Author Name Unknown Organization [facility] Address [address] [place] [address] Care Team Providers Care Accounts Receivable Processor Name Role Phone Desiree Patrick MD Unavailable Farrah Nicole APRN, CNS Unavailable Bry Echevarria MD Unavailable Jamal CARLISLE DO, Robert William Unavailable Unav ailable Shruti Vergara RN Unavailable Unavailable Reason for Visit * Reason Comments Refill Request Encounter Details Date Type Department Care Team Description 10/11/2022 Refill [facility] Family Medicine [address] [facility] [place] [address] Bianka Loera, BOX LINER [address] [facility] [address] [place] [phone] Dx: Essential hypertension (Primary Dx) Social History Tobacco Use Types [...] any clubs o r organizations such as orthodoxy groups, unions, fraternal or athletic groups, or [...] and heating? Not hard at all 04/04/2021 [facility] [place] of Occupat ional Health - Occupational Stress [...] place to sleep or slept in a halfway (including now)? No 04/04/2021 Depression (PHQ-9) Answer Date Recorded Last PHQ-9 Score Not on file 08/27/2022 Thoughts of self harm Not at all 08/27/2022 Education Answer Date Recorded What is the highest level of school you have completed or the highest degree you have received? Master's degree (e.g., MA, MS, Mirlande, MEd, CONTRACT NEGOTIATION MANAGER, ROHIT) 08/19/2020 Sex and Gender Information Value [...] encounter Miscellaneous Notes * Telephone Encounter - Romana Traore RN - 10/13/2022 9:55 AM CDT Refill Request PCP: No primary care provider on file. Last office visit: 08/26/21 with Bianka Loera Last refilled: 08/26/21 90+3 by Bianka Loera Unable to fill lisinopriL per protocol. Failed Epic refill protocol. No pcp on file. Per protocol, routed to last prescribing provider for review. documented in this encounter Plan of Treatment Not on file documented as of this encounter Visit Diagnoses Diagnosis Essential hypertension- Primary Unspecified essential hypertension documented in this encounter Care Teams Accounts Receivable Processor Relationship Specialty Start Date End Date Desiree Patrick MD [address] [place] [address] 08/09/17 Farrah Nicole APRN,OPERATIONS WELDER [address] [place] [address] 08/09/17 Bry Echevarria MD [address] [place] [phone] 08/09/17 Casey Berry II, DO 08/09/17 Shruti Vergara RN RN Registered Nurse 08/27/20 documented as of this encounter Additional Source Comments PLEASE NOTE: Replies to this message will not be received.[facility] and [facility]
--- OUTSIDE RECORDS SUMMARY | 2023-08-16 11:19 | XMS_ITS | Encounter Summary ---
Author Name Unknown Organization [facility] Address [address] [place] [address] Care Team Providers Care Window Caser Name Role Phone Desiree Patrick MD Unavailable Farrah Nicole APRN, CNS Unavailable Bry Echevarria MD Unavailable [phone] Jamal CARLISLE DO, Robert William Unavailable Unav ailable Shruti Vergara RN Unavailable Unavailable Reason for Visit * Reason Comments Refill Request Encounter Details Date Type Department Care Team Description 08/27/2022 Refill [facility] Family [facility] [address] [facility] [place] [address] Bianka Loera, ASSET PROTECTION GREETER [address] [facility] [address] [place] [phone] Dx: Vascular dementia without behavioral disturbance (HCC) [...] How often do you attend chur or scientologist services? More than 4 times per year 04/04/2021 Do you belong to any clubs o r organizations such as anglican groups, unions, fraternal or athletic groups, or [...] and heating? Not hard at all 04/04/2021 [facility] [place] of Occupat ional Health - Occupational Stress [...] place to sleep or slept in a snf (including now)? No 04/04/2021 Depression (PHQ-9) Answer Date Recorded Last PHQ-9 Score Not on file 08/27/2022 Thoughts of self harm Not at all 08/27/2022 Education Answer Date Recorded What is the highest level of school you have completed or the highest degree you have received? Master's degree (e.g., MA, MS, Mirlande, MEd, CERTIFIED TUMOR REGISTRAR, ROHIT) 08/19/2020 Sex and Gender Information Value [...] Telephone Encounter - Asher Cherry LPN - 08/31/2022 9:46 AM CST Please deny. Pt has established care with new provider. See note from 02/04/2022. TY SHERIFF BUILDING GUARD * Telephone Encounter - Christina Aleman RN - 08/29/2022 9:55 AM CST Refill Request PCP: No primary care provider on file. Last office visit: 08-26-21 Bianka Loera CNP Last refilled: 08-26-21 #90 +3 RF Unable to fill donepezil. No PCP listed. Routed to provider for review. TY SHERIFF BUILDING GUARD documented in this encounter Plan of Treatment Not on file documented as of this encounter Visit Diagnoses Diagnosis Vascular dementia without behavioral disturbance (HCC)- Primary Vascular dementia, uncomplicated documented in this encounter Care Teams Window Caser Relationship Specialty Start Date End Date Desiree [place] MD [address] [place] [address] 08/09/17 Farrah Nicole APRN,CLUTCH INSPECTOR [address] [place] [address] 08/09/17 Bry Echevarria MD [address] [place] [address] 08/09/17 Casey Berry II, DO 08/09/17 Shruti Vergara RN RN Registered Nurse 08/27/20 documented as of this encounter Additional Source Comments PLEASE NOTE: Replies to this message will not be received.[facility] and [facility]
--- OUTSIDE RECORDS SUMMARY | 2023-08-16 11:20 | XMS_ITS | Encounter Summary ---
Author Name Unknown Organization [facility] Address [address] [place] [address] Care Team Providers Care Boiler Reliner Name Role Phone Jamal CARLISLE DO, Robert William Primary Care Provide r Unavailable Desiree [place] MD Unavailable Farrah Nicole APRN,ASSISTANT PROFESSOR OF FORESTRY Unavailable Bry Echevarria MD Unavailable Jamal CARLISLE DO, Robert William Unavailable Unav xiable Stephani Aleman MD Primary Care Provider Shruti Vergara RN Unavailable Unavailable Bianka Loera CNP Primary Care Provider Desiree Patrick MD Primary Care P rovider Encounter Details Date Type Department Care Team Description 09/07/2017 Historical Conversion [facility] [address] [place] [address] Casey Berry II, DO Social History Tobacco Use Types Packs/Day Years Used Date Smoking Tobacco: Former Cigarettes 1 18 Q uit: 1979 Smokeless Tobacco: Never Alcohol Use Standard Drinks/Week Comments Yes 2 (1 standard drink = 0.6 oz pur e alcohol) 1-2 beers daily Sex and Gender [...] as of this encounter Progress Notes * Casey Berry II, DO - 10/18/2017 12:00 AM CDT Assessment 1. 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 Possible sciatica to the right. Plan 1.Soma 350 one t.i.d. p.r.n. 2.If no improvement with the back, the next step would be to do an MRI of the lumbar spine and sacrum to see if there are any secondary problems. Plan Orders SocHx: Former smoker: 0 - 10 pack years Former Smoker: Since tobacco use can have significant health risks, you are helping yourself and others stay healthy by no longer smoking.; Status:Complete; Done: 18Oct2017 Reason For Visit Bilateral leg pain History of Present Illness Sgywefb-oel-eaif-old male who states that he was shoveling snow the other day and has noted that heis now having pain to the point that he cannot sit down for very long. He is having irritation. No nausea, no vomiting. He states that it seems to be midline. It does not run down his leg. He has notnoticed any falls, traumas, or injuries that have happened since he started noticing this. He has tried Tylenol with only minimal help. He is on Coumadin for AFib. Review of Systems CONSTITUTIONAL:Denies weight loss, weight gain, fevers, chills, or night sweats. HEENT:Denies blurred vision, double vision, earache, sore throat, runny nose, congestion. CARDIOVASCULAR:Denies chest pain, palpitations, dyspnea on exertion. RESPIRATORY:Denies cough, congestion, runny nose. GI:Denies nausea, vomiting, diarrhea, constipation, melena, hematochezia, weight loss, weight gain. MS:See history of chief complaint. NEURO/PSYCH:Denies stroke, seizure, anxiety, or depression. ENDOCRINE:Denies polyuria, polydipsia, polyphagia, heat or cold intolerance, unusual alopecia. HEMATOLOGIC:Denies blood dyscrasias or anemia. :Denies dysuria, polyuria, hematuria. Past Medical History 1. Abnormal PSA (795.89) [...] (447.71) (I77.810) 12. Hyperglycemia (790.29) (R73.9) 13. Denied: History of Nicotine Dependence 14. Paroxysmal atrial fibrillation (427.31) (I48.0) 15. Paroxysmal tachycardia (427.2) (I47.9) 16. History of Vision Assessment Surgical History 1. History of Colonoscopy (Fiberoptic) 2. History of Hand Excision Of Tendon Cyst Family History Mother 1. Family history of [...] of type 2 diabetes mellitus (V18.0) (Z83.3) Social History 1. Former smoker: 0 - 10 pack years (V15.82) (Z87.891) Current Meds 1. Dofetilide 250 MCG Oral Capsule; TAKE 1 CAPSULE EVERY 12 HOURS; Last Rx:[id number] Ordered 2. Lisinopril 10 MG Oral Tablet; TAKE ONE TABLET DAILY; Therapy: 18Oct2017 to Recorded 3. Metoclopramide HCl - 5 MG Oral Tablet; TAKE 1 TABLET BY MOUTH THREE TIMES DAILY WITH MEALS NEEDED; Therapy: 10Sep2014 to (Evaluate:29Oct2017) Requested for: 47Tua2925; Last Rx:[id number] Ordered 4. Polyethylene Glycol 3350 Oral Powder; take 17 grams in 8 ounces of fluid once daily as needed for constipation; Therapy: 96Bsb7373 to (Evaluate:27May2018); Last Rx:[id number] Ordered 5. Triamcinolone Acetonide 0.1 % External Lotion; APPLY 2-3 TIMES DAILY TO AFFECTED AREA(S); Therapy: 59Dlx3598 to (Last Rx:[id number]) Requested for: 76Sxs0991 Ordered 6. Warfarin Sodium 5 MG Oral Tablet; Take as directed by ACC; Therapy: 84Kfu1801 to (Evaluate:10Sep2018) Requested for: 15Sep2017 Recorded Allergies 1. Penicillins 2. Sulfa Drugs Vitals Vital Signs Recorded: 18Oct2017 10:46AM Systolic 126 Diastolic 85 Heart Rate 61 Respiration 20 Temperature 97.4 F Weight 93.2 kg BMI Calculated 27.08 BSA Calculated 2.18 O2 Saturation 98 Physical Exam MUSCULOSKELETAL: There is tenderness over the right ischial tuberosity and over the coccyx. Strength 5/5. Patient has difficulty moving due to the pain in the lumbar spine. NEURO: Straight leg raising negative. Deep tendon reflexes 1/4 bilaterally. Results/Data X-ray of the sacrum does not show any signs of a fracture or dislocation, but we will await radiologist's reading of test. Signatures Casey Berry II, D.OWilliam/jr-12 Electronically signed by : Casey Berry DO; Oct 25 2017 10:02AM MAINFRAME DEVELOPER documented in this encounter H&P Notes * Jamal Casey Brian CARLISLE, - 09/07/2017 12:00 AM CST Assessment 1. Encounter for preventive health examination (V70.0) (Z00.00) 2. Former smoker: 0 - 10 pack years (V15.82) (Z87.891) 3. Avitaminosis D (268.9) (E55.9) 1. Atrial fibrillation. 2. Hypertension. 3. History of prostate cancer. Plan 1. Refill medications. 2. Comp, lipid, vitamin D. The rest of the blood work has recently been done by Urology. Plan Orders SocHx: Former smoker: 0 - 10 pack years Former Smoker: Since tobacco use can have significant health risks, you are helping yourself and others stay healthy by no longer smoking.; Status:Complete; Done: 86Vfv1157 Reason For Visit Routine history and physical. History of Present Illness The patient is coming in today for a routine physical. He has not been having any major complaints at this time, and things seem to be doing rather well for him. He filled out the paperwork and does not see any other regular physicians. Patient sees Urology. Review of Systems CONSTITUTIONAL:Denies weight loss, weight gain, fevers, chills, or night sweats. HEENT:Denies blurred vision, double vision, earache, sore throat, runny nose, congestion. CARDIOVASCULAR:Denies chest pain, palpitations, dyspnea on exertion. RESPIRATORY:Patient has sleep apnea and uses Bipap regularly and feels as though it is working rather well. Denies cough, congestion, runny nose. GI:Denies nausea, vomiting, diarrhea, constipation, melena, hematochezia, weight loss, weight gain. MS:Denies aches, pains. NEURO/PSYCH:Denies stroke, seizure, anxiety, or depression. ENDOCRINE:Denies polyuria, polydipsia, polyphagia, heat or cold intolerance, unusual alopecia. HEMATOLOGIC:Denies blood dyscrasias or anemia. :See Past Medical History. Past Medical History 1. Abnormal PSA (795.89) [...] (447.71) (I77.810) 12. Hyperglycemia (790.29) (R73.9) 13. Denied: History of Nicotine Dependence 14. Paroxysmal atrial fibrillation (427.31) (I48.0) 15. Paroxysmal tachycardia (427.2) (I47.9) 16. History of Vision Assessment 1. Atrial fibrillation. 2. Low vitamin D. 3. History of cancer of the prostate. 4. Hypertension. 5. Sleep apnea. Surgical History 1. History of Colonoscopy (Fiberoptic) ?? due 02/04/2020 2. History of Hand Excision Of Tendon Cyst 1. Ganglion cyst. 2. Vasectomy. 3. Tube placed in the ear. Family History Mother 1. Family history of [...] (Z83.3) Father and had oral cancer. Mother and had Alzheimer's. Diabetes runs in the family. Social History 1. Former smoker: 0 - 10 pack years (V15.82) (Z87.891) He does not smoke. He has rare alcohol, rare caffeine. Current Meds 1. Digoxin 125 MCG Oral Tablet; TAKE 1 TABLET DAILY Requested for: 20Jul2017; Last Rx:20Jul2017 Ordered 2. DilTIAZem HCl - 30 MG Oral Tablet; TAKE ONE TABLET TWICE DAILY; Therapy: 14Apr2017 to (Evaluate:27May2018) Requested for: 72Swt1648; Last Rx:56Ybn6217 Ordered 3. Dofetilide 250 MCG Oral Capsule; TAKE 1 CAPSULE EVERY 12 HOURS; Last Rx:[id number] Ordered 4. Metoclopramide HCl - 5 MG Oral Tablet; TAKE 1 TABLET BY MOUTH THREE TIMES DAILY WITH MEALS NEEDED; Therapy: 10Sep2014 to (Evaluate:57Xpw0619) Requested for: 41Ehu5965; Last Rx:[id number] Ordered 5. Metoprolol Tartrate 50 MG Oral Tablet; TAKE 1/2 TABLET TWICE DAILY; Therapy: (Recorded:31Rvf9564) to Recorded 6. Polyethylene Glycol 3350 Oral Powder; take 17 grams in 8 ounces of fluid once daily as needed for constipation; Therapy: 47Dyj4771 to (Evaluate:27May2018); Last Rx:14Swj9577 Ordered 7. Warfarin Sodium 5 MG Oral Tablet; Take as directed by ACC; Therapy: 01Ayc1424 to (Evaluate:28May2018) Requested for: 02Jun2017 Recorded Allergies 1. Penicillins 2. Sulfa Drugs PENICILLIN AND SULFA. Immunizations Prevnar in 2016. Pneumovax in 2009. Tetanus in 2013. Shingles in 2009. Vitals Recorded: 80Xiw2280 08:20AM Systolic 144 Diastolic 85 Heart Rate 50 Respiration 20 Temperature 97.1 F Height 185.5 cm Weight 94.3 kg BMI Calculated 27.4 BSA Calculated 2.19 2+ Falls or 1 Fall with injury in last year? No O2 Saturation 98 Physical Exam EYES:Pupils equal, round, reactive to light and accommodation. Extraocular muscles intact. Funduscopic exam benign. EARS:Tympanic membrane intact, cone of light noted. THROAT:No erythema, no lesion. NECK:No adenopathy, bruits, thyroid enlargement. LYMPH NODES:No nodes in pre- and postauricular, anterior posterior cervical, axillary, epitrochlear, or inguinal. HEART:Irregular rate and rhythm without murmur, S3, S4, [...] functions intact. SKIN:Warm and dry without rash. GENITALIA:Deferred as done by Urology. RECTAL:Deferred as done by Urology. Signatures Casey Berry II, D.OWilliam/jaj-01 Electronically signed by : Casey Berry DO; Sep 20 2017 7:51AM MAINFRAME DEVELOPER documented in this encounter Plan of Treatment Not on file documented as of this encounter Visit Diagnoses Not on filedocumented in this encounter Care Teams Boiler Reliner Relationship Specialty Start Date End Date Casey Berry II, DO PCP - General 11/22/06 08/17/19 Stephani Aleman MD PCP - General Family Medicine 08/18/19 09/16/20 Bianka Loera CNP [address] [place] [address] 2 [place] [phone] PCP - General Nurse Practitioner Family 09/17/2001/10 Desiree Patrick MD [address] [place] [phone] PCP - General Electrophysiology 02/23/22 03/09/22 Desiree Patrick MD [address] [place] [address] 08/09/17 Farrah Nicole APRN,ASSISTANT PROFESSOR OF FORESTRY [address] [place] [address] 08/09/17 Bry Echevarria MD [address] [place] [address] 08/09/17 Casey Berry II, DO 08/09/17 Shruti Vergara RN RN Registered Nurse 08/27/20 documented as of this encounter Additional Source Comments PLEASE NOTE: Replies to this message will not be received.[facility] and [facility]
--- OUTSIDE RECORDS SUMMARY | 2023-08-16 11:20 | XMS_ITS | Encounter Summary ---
Author Name Unknown Organization [facility] Address [address] [place] [address] Care Team Providers Care Supervisor Newspaper Deliveries Name Role Phone Jamal CARLISLE DO, Robert William Primary Care Provide r Unavailable Desiree Patrick MD Unavailable Farrah Nicole APRN,BEAD STRINGER Unavailable Bry Echevarria MD Unavailable [phone] Jamal CARLISLE DO, Robert William Unavailable Unav Stephani Diaz MD Primary Care Provider Shruti Vergara RN Unavailable Unavailable Bianka Loera CNP Primary Care Provider Desiree Patrick MD Primary Care P rovider Encounter Details Date Type Department Care Team Description 07/22/2018 Historical Conversion [facility] Family Medicine [address] [place] [id number] Moon Maloney MD Social History Tobacco Use Types Packs/Day [...] Sign Reading Time Taken Comments Blood Pressure 120/58 07/22/2018 12:00 AM PASSENGER ATTENDANT Pulse - - Temperature - - Respiratory Rate - - Oxygen Saturation - - Inhaled Oxygen Concentration - - Weight 93.8 kg (206 lb 12.7 oz) 019 12:00 AM PASSENGER ATTENDANT Height - - Body Mass Index 27.28 06/20/2018 8:23 AM PASSENGER ATTENDANT documented in this encounter Functional Status Functional [...] on filedocumented in this encounter Care Teams Supervisor Newspaper Deliveries Relationship Specialty Start Date End Date Casey Berry II, DO PCP - General 11/22/06 08/17/19 Stephani Aleman MD PCP - General Family Medicine 08/18/19 09/16/20 Bianka Loera CNP [address] [place] [address] 2 [place] [address] PCP - General Nurse Practitioner Family 09/17/2001/10 Desiree Patrick MD [address] [place] [address] PCP - General Electrophysiology 02/23/22 03/09/22 Desiree Patrick MD [address] [place] [address] 08/09/17 Farrah Nicole APRN,BEAD STRINGER [address] [place] [address] 08/09/17 Bry Echevarria MD [facility] [place] [address] 08/09/17 Casey Berry II, DO 08/09/17 Shruti Vergara RN RN Registered Nurse 08/27/20 documented as of this encounter Additional Source Comments PLEASE NOTE: Replies to this message will not be received.[facility] and [facility]
--- OUTSIDE RECORDS SUMMARY | 2023-08-16 11:20 | XMS_ITS | Encounter Summary ---
Author Name Unknown Organization [email or web address] Address [address] [place] [address] Care Team Providers Care Drawing Tracer Name Role Phone Jamal CARLISLE DO, Robert William Primary Care Provide r Unavailable Desiree Patrick MD Unavailable Farrah Nicole APRN,INFRASTRUCTURE ARCHITECT Unavailable Bry Echevarria MD Unavailable Jamal CARLISLE DO, Robert William Unavailable Unav Stephani Diaz MD Primary Care Provider Shruti Vergara RN Unavailable Unavailable Bianka Loera CNP Primary Care Provider [phone] Desiree Patrick MD Primary Care P rovider Encounter Details Date Type Department Care Team Description 08/31/2017 Historical Conversion [facility] [address] [facility] [place] [place], [place] [id number] Desiree Rubi PAC [address] [place] [address] Social History Tobacco Use Types Packs/Day Years [...] Sign Reading Time Taken Comments Blood Pressure 112/60 08/31/2017 12:00 AM CLINICAL STATISTICS MANAGER Pulse - - Temperature - - Respiratory Rate - - Oxygen Saturation - - Inhaled Oxygen Concentration - - Weight 95.9 kg (211 lb 6.7 oz) 08/31/2017 12:00 AM CLINICAL STATISTICS MANAGER Height - - Body Mass Index 27.89 07/27/2017 2:42 PM CLINICAL STATISTICS MANAGER documented in this encounter Functional Status Functional [...] on filedocumented in this encounter Care Teams Drawing Tracer Relationship Specialty Start Date End Date Casey Berry II, DO PCP - General 11/22/06 08/17/19 Stephani Aleman MD PCP - General Family Medicine 08/18/19 09/16/20 Bianka Loera CNP [address] [facility] 2 [place] [address] PCP - General Nurse Practitioner Family 09/17/2001/10 Desiree Patrick MD [address] [place] [address] PCP - General Electrophysiology 02/23/22 03/09/22 Desiree Patrick MD [address] [place] [address] 08/09/17 Farrah Nicole APRN,INFRASTRUCTURE ARCHITECT [address] [facility] [place] [address] 08/09/17 Bry Echevarria MD [address] [place] [address] [place] [address] 08/09/17 Casey Berry II, DO 08/09/17 Shruti Vergara RN RN Registered Nurse 08/27/20 documented as of this encounter Additional Source Comments PLEASE NOTE: Replies to this message will not be received.[facility] and [facility]
--- OUTSIDE RECORDS SUMMARY | 2023-08-16 11:20 | XMS_ITS | Encounter Summary ---
Author Name Unknown Organization [employer] Address [address] [place] [address] Care Team Providers Care Pipe Fitter Apprentice Name Role Phone Jamal CARLISLE DO, Robert William Primary Care Provide r Unavailable Desiree Patrick MD Unavailable Farrah Nicole APRN,METAL MODEL MAKER Unavailable Bry Echevarria MD Unavailable [phone] Jamal CARLISLE DO, Robert William Unavailable Unav xiable Setphani Aleman MD Primary Care Provider Shruti Vergara RN Unavailable Unavailable Bianka Loera CNP Primary Care Provider Desiree Patrick MD Primary Care P rovider Encounter Details Date Type Department Care Team Description 07/01/2017 Historical Conversion [facility] Family Medicine [address] [place] [id number] Social History Tobacco Use Types Packs/Day Years [...] as of this encounter Procedure Notes * MICHELLE AUSTINPROGINABRANDO - 06/14/2018 12:00 AM CSTAssociated Order(s): ANTICOAGULATION Name: CRISTIAN BLEDSOE : 1945 DOS: 06/14/2018 Cristian is a patient of Dr. Berry. He is here today for anticoagulation assessment and INR check for adiagnosis of atrial fibrillation. Patient states that he has been feeling well. He denies any medication changes since his last INR check. INR tested today is 2.4 with the recommended range of 2.0 to3.0. Patient will continue Coumadin at 7.5 mg on Wednesdays and 5 mg all other days with an INR recheck in one month, sooner for any changes. Patient verbalizes understanding. Electronically signed by:Tiffani Carrero RN Jun 14 2018 7:43PM CLINICAL PSYCHOLOGIST PRIVATE PRACTICE * PAPA BOTELLO, MICHELLEPROVIDER - 05/17/2018 12:00 AM CSTAssociated Order(s): ANTICOAGULATION Anticoagulation Clinic [facility] Name: CRISTIAN BLEDSOE : 1945 DOS: 05/17/2018 Cristian is a patient of Dr. Berry. He is here today for anticoagulation assessment and INR check for adiagnosis of atrial fibrillation. Patient states that he has been feeling well. He denies any medication changes since his last INR check. INR tested today is therapeutic at 2.5 with the recommended range of 2.0 to 3.0. Patient will continue Coumadin at 7.5 mg on Wednesdays and 5 mg all other days w ith an INR recheck in one month, sooner for any changes. Patient verbalizes understanding. Electronically signed by:Tiffani Carrero RN May 17 2018 11:41AM CLINICAL PSYCHOLOGIST PRIVATE PRACTICE * [facility] - 04/26/2018 12:00 AM CDTAssociated Order(s): ANTICOAGULATION Anticoagulation [facility] Name: CRISTIAN BLEDSOE : 1945 DOS: 04/26/2018 Cristian is a patient of Dr. Berry. He is here today for anticoagulation assessment and INR check for adiagnosis of atrial fibrillation. Patient states that he has been feeling well. He denies any medication changes since his last INR check. INR tested today is 1.9 with the recommended range of 2.0 to3.0. Patient will continue Coumadin at 7.5 mg on Wednesdays and 5 mg all other days with an INR recheck in two weeks. Patient verbalizes understanding. Patient received his High Dose Fluzone for 2018 during his appointment today. Electronically signed by:Tiffani Carrero RN Apr 26 2018 4:12PM CLINICAL PSYCHOLOGIST PRIVATE PRACTICE * [facility] - 03/22/2018 12:00 AM CDTAssociated Order(s): ANTICOAGULATION Anticoagulation Clinic [facility] Name: CRISTIAN BLEDSOE : 1945 DOS: 03/22/2018 Cristian is a patient of Dr. Berry. He is here today for anticoagulation assessment and INR check for adiagnosis of atrial fibrillation. Patient states that he has been feeling well. He denies any medication changes since his last INR check. INR tested today remains therapeutic at 2.5 with the recommended range of 2.0 to 3.0. Patient will continue Coumadin at 7.5 mg on Wednesdays and 5 mg all other d ays with an INR recheck in one month, sooner for any changes. Patient verbalizes understanding. Electronically signed by:Tiffani Carrero RN Mar 22 2018 3:06PM CLINICAL PSYCHOLOGIST PRIVATE PRACTICE * [facility] DONTAELUBNA - 02/23/2018 12:00 AM CDTAssociated Order(s): ANTICOAGULATION Anticoagulation [facility] Name: CRISTIAN BLEDSOE : 1945 DOS: 02/23/2018 Cristian is a patient of Dr. Berry. He is here today for anticoagulation assessment and INR check for adiagnosis of atrial fibrillation. Patient states that he has been feeling well. He denies any medication changes since his last INR check. INR tested today is therapeutic at 2.1 with the recommended range of 2.0 to 3.0. Patient will continue Coumadin at 7.5 mg on Wednesdays and 5 mg all other days w ith an INR recheck in one month, sooner for any changes. Patient verbalizes understanding. Electronically signed by:Tiffani Carrero RN Feb 23 2018 10:29AM CLINICAL PSYCHOLOGIST PRIVATE PRACTICE * HAIDER AUSTIN - 02/09/2018 12:00 AM CDTAssociated Order(s): ANTICOAGULATION Anticoagulation [facility] Name: CRISTIAN BLEDSOE : 1945 DOS: 02/09/2018 Cristian is a patient of Dr. Berry. He is here today for anticoagulation assessment and INR check for adiagnosis of atrial fibrillation. Patient states that he has been feeling well. He denies any medication changes since his last INR check. Patient reports that he recently took a trip to [place] and forgot to take his Coumadin during the weekend. INR tested today is 1.8 with the recommended range of 2.0 to 3.0. Patient will continue Coumadin at 7.5 mg on Wednesdays and 5 mg all other days withan INR recheck in two weeks. Patient verbalizes understanding. Electronically signed by:Tiffani Carrero RN Feb 09 2018 4:06PM CLINICAL PSYCHOLOGIST PRIVATE PRACTICE * [facility] - 07/01/2017 12:00 AM CSTAssociated Order(s): ANTICOAGULATION Name: CRISTIAN BLEDSOE : 1945 DOS: 07/01/2017 Cristian is a patient of Dr. Berry. He is here today for anticoagulation assessment and INR check for adiagnosis of atrial fibrillation. Patient was seen in clinic by Dr. Echevarria today post cardioversion. Patient had a cardioversion on 06/24 at [facility] and he reports it went well. He states he is feeling better and has increased energy. He was started on dofetilide 250 mcg twice daily on 06/24 and had his diltiazem decreased to 30 mg twice daily also that day (from 60 mg twice daily). INR done today is therapeutic at 2.8 with the recommended range of 2.0- 3.0. He will continue his current Coumadindose of 2.5 mg on Wednesdays and 5 mg all other days of the week. INR recheck in one week. Electronically signed by:Theresa Crowder RN Jul 01 2017 5:02PM CLINICAL PSYCHOLOGIST PRIVATE PRACTICE documented in this encounter Plan of Treatment Not on file documented as of this encounter Procedures Procedure Name Priority Date/Time Associated Diagnosis Comments ANTICOAGULATION 06/14/2018 ANTICOAGULATION 05/17/2018 ANTICOAGULATION 04/26/2018 ANTICOAGULATION 03/22/2018 ANTICOAGULATION 02/23/2018 ANTICOAGULATION 02/09/2018 ANTICOAGULATION 07/01/2017 documented in this encounter Results * ANTICOAGULATION (06/14/2018) Narrative Procedure Note [facility] - 06/14/2018 12:00 AM CST Name: CRISTIAN BLEDSOE : 1945 DOS: 06/14/2018 Cristian is a patient of Dr. Berry. He is here today for anticoagulationassessment and INR check for a diagnosis of atrial fibrillation. Patientstates that he has been feeling well. He denies any medication changessince his last INR check. INR tested today is 2.4 with the recommendedrange of 2.0 to 3.0. Patient will continue Coumadin at 7.5 mg onWednesdays and 5 mg all other days with an INR recheck in one month,sooner for any changes. Patient verbalizes understanding. Electronically signed by:Tiffani Carrero RN Jun 14 2018 7:43PM CLINICAL PSYCHOLOGIST PR[facility] PRACT[facility] * [facility]TICO[facility]ATION (05/17/2018) Narrative Procedure Note [facility] - 05/17/2018 12:00 AM CST Anticoagulation [facility] Name: CRISTIAN BLEDSOE : 1945 DOS: 05/17/2018 Cristian is a patient of Dr. Berry. He is here today for anticoagulationassessment and INR check for a diagnosis of atrial fibrillation. Patientstates that he has been feeling well. He denies any medication changessince his last INR check. INR tested today is therapeutic at 2.5 with therecommended range of 2.0 to 3.0. Patient will continue Coumadin at 7.5 mgon Wednesdays and 5 mg all other days with an INR recheck in one month,sooner for any changes. Patient verbalizes understanding. Electronically signed by:Tiffani Carrero RN May 17 2018 11:41AM CLINICAL PSYCHOLOGIST PRIVATE PRACTICE [facility] OTHER * ANTICOAGULATION (04/26/2018) [facility]ative [facility] - 04/26/2018 12:00 AM CDT Anticoagulation [facility] Name: CRISTIAN BLEDSOE : 1945 DOS: 04/26/2018 Cristian is a patient of Dr. Berry. He is here today for anticoagulationassessment and INR check for a diagnosis of atrial fibrillation. Patientstates that he has been feeling well. He denies any medication changessince his last INR check. INR tested today is 1.9 with the recommendedrange of 2.0 to 3.0. Patient will continue Coumadin at 7.5 mg onWednesdays and 5 mg all other days with an INR recheck in two weeks.Patient verbalizes understanding. Patient received his High Dose Fluzone for 2018 during his appointmenttoday. Electronically signed by:Tiffani Carrero RN Apr 26 2018 4:12PM CLINICAL PSYCHOLOGIST PRIVATE PRACTICE [facility] OTHER * ANTICOAGULATION (03/22/2018) Narrative Procedure Note [facility] - 03/22/2018 12:00 AM CDT Anticoagulation [facility] Name: CRISTIAN BLEDSOE : 1945 DOS: 03/22/2018 Cristian is a patient of Dr. Berry. He is here today for anticoagulationassessment and INR check for a diagnosis of atrial fibrillation. Patientstates that he has been feeling well. He denies any medication changessince his last INR check. INR tested today remains therapeutic at 2.5 withthe recommended range of 2.0 to 3.0. Patient will continue Coumadin at7.5 mg on Wednesdays and 5 mg all other days with an INR recheck in onemonth, sooner for any changes. Patient verbalizes understanding. Electronically signed by:Tiffani Carrero RN Mar 22 2018 3:06PM CLINICAL PSYCHOLOGIST PRIVATE PRACTICE [facility] OTHER * ANTICOAGULATION (02/23/2018) Narrative Procedure Note [facility] - 02/23/2018 12:00 AM CDT Anticoagulation [facility] Name: CRISTIAN BLEDSOE : 1945 DOS: 02/23/2018 Cristian is a patient of Dr. Berry. He is here today for anticoagulationassessment and INR check for a diagnosis of atrial fibrillation. Patientstates that he has been feeling well. He denies any medication changessince his last INR check. INR tested today is therapeutic at 2.1 with therecommended range of 2.0 to 3.0. Patient will continue Coumadin at 7.5 mgon Wednesdays and 5 mg all other days with an INR recheck in one month,sooner for any changes. Patient verbalizes understanding. Electronically signed by:Tiffani Carrero RN Feb 23 2018 10:29AM CLINICAL PSYCHOLOGIST PRIVATE PRACTICE [facility] OTHER * ANTICOAGULATION (02/09/2018) Narrative Procedure Note [facility] - 02/09/2018 12:00 AM CDT Anticoagulation Clinic [facility] Name: CRISTIAN BLEDSOE : 1945 DOS: 02/09/2018 Cristian is a patient of Dr. Berry. He is here today for anticoagulationassessment and INR check for a diagnosis of atrial fibrillation. Patientstates that he has been feeling well. He denies any medication changessince his last INR check. [place] Cou[place]in during the weekend. INR testedtoday is 1.8 with the recommended range of 2.0 to 3.0. Patient willcontinue Coumadin at 7.5 mg on Wednesdays and 5 mg all other days with anINR recheck in two weeks. Patient verbalizes understanding. Electronically signed by:Tiffani Carrero RN Feb 09 2018 4:06PM CLINICAL PSYCHOLOGIST PRIVATE PRACTICE [facility] OTHER * ANTICOAGULATION (07/01/2017) Narrative Procedure Note [facility] - 07/01/2017 12:00 AM CST Name: CRISTIAN BLEDSOE : 1945 DOS: 07/01/2017 Cristian is a patient of Dr. Berry. He is here today for anticoagulationassessment and INR check for a diagnosis of atrial fibrillation. Patientwas seen in clinic by Dr. Echevarria today post cardioversion. Patient had acardioversion on 06/24 at [facility] and he reports it went well. Hestates he is feeling better and has increased energy. He was started ondofetilide 250 mcg twice daily on 06/24 and had his diltiazem decreased to30 mg twice daily also that day (from 60 mg twice daily). INR done todayis therapeutic at 2.8 with the recommended range of 2.0-3.0. He willcontinue his current Coumadin dose of 2.5 mg on Wednesdays and 5 mg allother days of the week. INR recheck in one week. Electronically signed by:Theresa Crowder RN Jul 01 2017 5:02PM CLINICAL PSYCHOLOGIST PRIVATE PRACTICE [facility]provider [facility] OTHER documented in this encounter Visit Diagnoses Not on filedocumented in this encounter Care Teams Pipe Fitter Apprentice Relationship Specialty Start Date End Date Casey Berry II, DO PCP - General 11/22/06 08/17/19 Stephani Aleman MD PCP - General Family Medicine 08/18/19 09/16/20 Bianka Loera CNP [address] [place] [address] [address] [place] [phone] PCP - General Nurse Practitioner Family 09/17/2001/10 Desiree Patrick MD [address] [place] [address] PCP - General Electrophysiology 02/23/22 03/09/22 Desiree Patrick MD [address] [place] [address] 08/09/17 Farrah Nicole APRN,ALEX [address] [place] [address] [place] [address] 08/09/17 Bry Echevarria MD [address] [place] [address] 08/09/17 Casey Berry II, DO 08/09/17 Shruti Vergara RN RN Registered Nurse 08/27/20 documented as of this encounter Additional Source Comments PLEASE NOTE: Replies to this message will not be received.[facility]
--- OUTSIDE RECORDS SUMMARY | 2023-08-16 11:20 | XMS_ITS | Encounter Summary ---
Author Name Unknown Organization [employer] Address [address] [place] [address] Care Team Providers Care Industrial Custodian Name Role Phone Jamal CARLISLE DO, Robert William Primary Care Provide r Unavailable Desiree Patrick MD Unavailable Farrah Nicole APRN,AGRICULTURAL EQUIPMENT SALESPERSON Unavailable [phone] Bry Echevarria MD Unavailable [phone] Jamal CARLISLE DO, Robert William Unavailable Unav Stephani Diaz MD Primary Care Provider Shruti Vergara RN Unavailable Unavailable Bianka Loera CNP Primary Care Provider [phone] Desiree Patrick MD Primary Care P rovider Encounter Details Date Type Department Care Team Description 06/13/2018 Historical Conversion [facility] [address] [facility] [address] [address] [place] [place] [phone] Bry Echevarria MD [address] [place] [address] Social History Tobacco Use Types [...] Sign Reading Time Taken Comments Blood Pressure 120/78 06/13/2018 12:00 AM DIRECTOR OF SPECIAL EVENTS Pulse - - Temperature - - Respiratory Rate - - Oxygen Saturation - - Inhaled Oxygen Concentration - - Weight 93.8 kg (206 lb 12.7 oz) 018 12:00 AM DIRECTOR OF SPECIAL EVENTS Height - - Body Mass Index 27.29 05/18/2018 8:54 AM DIRECTOR OF SPECIAL EVENTS documented in this encounter Functional Status Functional [...] on filedocumented in this encounter Care Teams Industrial Custodian Relationship Specialty Start Date End Date Casey Berry II, DO PCP - General 11/22/06 08/17/19 Stephani Aleman MD PCP - General Family Medicine 08/18/19 09/16/20 Bianka Loera CNP [address] [facility] [address] [facility] [address] [place] [address] PCP - General Nurse Practitioner Family 09/17/2001/10 Desiree Patrick MD [address] [place] [address] PCP - General Electrophysiology 02/23/22 03/09/22 Desiree Patrick MD [address] [place] [address] 08/09/17 Farrah Nicole APRN,AGRICULTURAL EQUIPMENT SALESPERSON [address] [place] [address] 08/09/17 Bry Echevarria MD [address] [place] [address] 08/09/17 Casey Berry II, DO 08/09/17 Shruti Vergara RN RN Registered Nurse 08/27/20 documented as of this encounter Additional Source Comments PLEASE NOTE: Replies to this message will not be received.[facility] and [facility]
--- OUTSIDE RECORDS SUMMARY | 2023-08-16 11:20 | XMS_ITS | Encounter Summary ---
Author Name Unknown Organization [employer] Address [address] [place] [address] Care Team Providers Care Technology Resource Teacher Name Role Phone Jamal CARLISLE DO, Robert William Primary Care Provide r Unavailable Desiree Patrick MD Unavailable Farrah Nicole APRN,CAMPUS SECURITY DIRECTOR Unavailable Bry Echevarria MD Unavailable [phone] Jamal CARLISLE DO, Robert William Unavailable Unav Stephani Diaz MD Primary Care Provider Shruti Vergara RN Unavailable Unavailable Bianka Loera CNP Primary Care Provider Desiree Patrick MD Primary Care P rovider Encounter Details Date Type Department Care Team Description 03/01/2018 Historical Conversion [facility] Family Medicine [address] [facility] [address] [place], [place] [phone] Desiree Rubi PAC [address] [place] [address] Social History Tobacco Use Types [...] Sign Reading Time Taken Comments Blood Pressure 120/72 03/01/2018 12:00 AM CDT Pulse - - Temperature - - Respiratory Rate - - Oxygen Saturation - - Inhaled Oxygen Concentration - - Weight 92.3 kg (203 lb 6 oz) 03/01/2018 12:00 AM CDT Height - - Body Mass Index 26.81 09/07/2017 12:00 AM CASTING WHEEL OPERATOR documented in this encounter Functional Status Functional [...] as of this encounter Progress Notes * Desiree Rubi - 03/01/2018 12:00 AM CDT UROLOGY CRISTIAN BLEDSOE : 1945 HX: [id number] DOS: 03/01/2018 HISTORY OF PRESENT ILLNESS: This patient is a 72-year-old gentleman who presents to the Urology clinic. In the past he has had a rubber nodularity on both sides of his prostate with a PSA velocity change. His PCA3 came back positive in the past. He had a biopsy in October 2016 that showed Rising Star 6 prostate cancer at the left base of the prostate involving 2%. He also had Curt 7 cancerat the left mid-prostate involving 5% of the tissue. The right mid-prostate had Curt 7 cancer involving 20% of the tissue in the area. Also, at the right apex, he had Rising Star 7 cancer involving 5%of the tissue. He was treated with Lupron for about four months and completed external radiation about a year ago. He was on Tikosyn with his heart issues and there was an interaction with his Lupronso the Lupron had to be discontinued. He is off of that at this point and now we are just monitoring the PSA. The PSA done today is 0.049, so it looks like his PSA has been pretty stable. His urine test is normal and clear. In June, it sounds like he had some cardioversion and his atrial fibrillation has been improved. He is still on Tikosyn. He did have some frequency in the past but he thinks that is actually getting a little bit better the further he gets out from radiation. He gets a little bit of urgency at night. No incontinence. Hevoids two to three times during the night, it kind of varies. He does have a BiPAP machine that sometimes gets pretty warm on his face and sometimes he takes that off through the night. His steam he said is good, he is not straining to void. We do not have him on an alpha raya medicine. No grosshematuria or dysuria. No rectal bleeding. He is on Miralax about every third day and his bowels have kind of been getting better. He really has not had any diarrhea or issues like that. He does get some partial erections. We really have not started any treatment for that, I think because he was dealing with some of his other heart issues, but he is kind of wondering what his optionsare. We talked about the potential option of Viagra or Cialis. I checked for interactions and none were listed, but I probably will check with Cardiology on this. A vacuum pump device is an option, MUSE or injectable medicines are some other options if he fails conservative options. I think he normally sees Farrah Jacobo APRN, CAMPUS SECURITY DIRECTOR, at the [facility], so we will try to reach out to themand see what their thoughts are with Tikosyn and these other medicines because that particular medicine does have a lot of interactions. No kidney or bladder infections or stones in the past. CURRENT MEDICATIONS: Listed in the EMR. ALLERGIES: PENICILLIN AND SULFA. OBJECTIVE: Vitals: Vital signs reviewed in [employer]. Please see vitals tab for details. General: Patient is in no acute distress. Alert and oriented. LABORATORY DATA: See my notes up above. ASSESSMENT: 1. Adenocarcinoma of the prostate, Curt 7 disease, status post EBRT treatment. He finished radiation a year ago. He was on Lupron for about two months. Had atrial fibrillation and was seeing Cardiology and was treated with Tikosyn and cardioversion. There was interaction with the Lupron so that had to be discontinued. The patient is off his Lupron, of course, at this point, and now we are justmonitoring. The PSAs have been low and stable. PLAN: He is seeing Dr. Winslow sometime in June and I think we can lengthen out appointments a little bit. I will plan on seeing him in December with a ERIN exam, PSA and a UA. In the meantime we will check with Cardiology in [place] about the option of Viagra or Cialis and confirm if that can be used with his Tikosyn. We will have to see what Cardiology recommends on that. If it is not approved from their department or there are side effects, we might have to consider the vacuum pump device. I spoke to the patient about all of these things, we went through the side effects of Viagra also withthe patient. I spent 30 minutes total time in appointment with the patient, over 50% was in counseling and coordination of care in regard to the above issues. Mare Rubi P.A.-C./jmf- 24 cc: Jose Winslow M.D./Radiation Oncology - [facility] cc: Casey Berry D.O./[facility] cc: Moon Maloney M.D./[facility] Electronically signed by:Desiree Rubi PA-C Mar 04 2018 1:27PM CASTING WHEEL OPERATOR documented in this encounter Plan of Treatment Not on file documented as of this encounter Visit Diagnoses Not on filedocumented in this encounter Care Teams Technology Resource Teacher Relationship Specialty Start Date End Date Casey Berry II, DO PCP - General 11/22/06 08/17/19 Stephani Aleman MD PCP - General Family Medicine 08/18/19 09/16/20 Bianka Loera CNP [address] [place] [address] PCP - General Nurse Practitioner Family 09/17/20 7/12/31 Desiree Patrick MD [address] [place] [address] PCP - General Electrophysiology 02/23/22 03/09/22 Desiree Patrick MD [address] [place] [address] 08/09/17 Farrah Nicole APRN,CAMPUS SECURITY DIRECTOR [address] [place] [address] 08/09/17 Bry Echevarria MD [facility] [place] [address] 08/09/17 Casey Berry II, DO 08/09/17 Shruti Vergara RN RN Registered Nurse 08/27/20 documented as of this encounter Additional Source Comments PLEASE NOTE: Replies to this message will not be received.[facility]
--- OUTSIDE RECORDS SUMMARY | 2023-08-16 11:20 | XMS_ITS | Encounter Summary ---
Author Name Unknown Organization [employer] Address [address] [place] [address] Care Team Providers Care Vessel Manager Name Role Phone Jamal CARLISLE DO, Robert William Primary Care Provide r Unavailable Desiree Patrick MD Unavailable Farrah Nicole APRN,RIDE ATTENDANT Unavailable Bry Echevarria MD Unavailable Jamal CARLISLE DO, Robert William Unavailable Unav Stephani Diaz MD Primary Care Provider Shruti Vergara RN Unavailable Unavailable Bianka Loera CNP Primary Care Provider Desiree Patrick MD Primary Care P rovider Encounter Details Date Type Department Care Team Description 10/18/[address] [facility] Family Medicine [address] [place] [id number] Casey Berry II, DO Social History Tobacco [...] Sign Reading Time Taken Comments Blood Pressure 126/85 10/18/2017 12:00 AM CDT Pulse - - Temperature - - Respiratory Rate - - Oxygen Saturation - - Inhaled Oxygen Concentration - - Weight 93.2 kg (205 lb 7.5 oz) 10/18/2017 12:00 AM CDT Height - - Body Mass Index 27.09 09/07/2017 12:00 AM BELT TURNER documented in this encounter Functional Status Functional [...] on filedocumented in this encounter Care Teams Vessel Manager Relationship Specialty Start Date End Date Casey Berry II, DO PCP - General 11/22/06 08/17/19 Stephani Aleman MD PCP - General Family Medicine 08/18/19 09/16/20 Bianka Loera CNP [address] [place] [address] 2 [place] [address] PCP - General Nurse Practitioner Family 09/17/2001/10 Desiree Patrick MD [address] [place] [address] PCP - General Electrophysiology 02/23/22 03/09/22 Desiree Patrick MD [address] [place] [address] 08/09/17 Farrah Nicole APRN,RIDE ATTENDANT [address] [place] [address] 08/09/17 Bry Echevarria MD [facility] [place] [address] 08/09/17 Casey Berry II, DO 08/09/17 Shruti Vergara RN RN Registered Nurse 08/27/20 documented as of this encounter Additional Source Comments PLEASE NOTE: Replies to this message will not be received.[facility] and [facility], [facility]–1983
--- OUTSIDE RECORDS SUMMARY | 2023-08-16 11:20 | XMS_ITS | Encounter Summary ---
Author Name Unknown Organization [employer] Address [address] [place] [address] Care Team Providers Care Donor Recruiter Name Role Phone Jamal CARLISLE DO, Robert William Primary Care Provide r Unavailable Desiree Patrick MD Unavailable Farrah Nicole APRN,PRINTER SMALL PRINT SHOP Unavailable Bry Echevarria MD Unavailable Jamal CARLISLE DO, Robert William Unavailable Unav xiable Stephani Aleman MD Primary Care Provider Shruti Vergara RN Unavailable Unavailable Bianka Loera CNP Primary Care Provider [phone] Desiree Patrick MD Primary Care P rovider Encounter Details Date Type Department Care Team Description 06/25/2017 Historical Conversion [facility] Family Medicine [address] [place] [address] Social History Tobacco Use Types Packs/Day Years [...] as of this encounter Progress Notes * [facility] GENERICPR[facility] - 06/25/2017 12:00 AM CST Medication Reconciliation Post Discharge Name: CRISTIAN BLEDSOE Date of Discharge: 06/24/2017 Current Meds 1. Digoxin 125 MCG Oral Tablet; Therapy: (Recorded:[id number]) to Recorded 2. DilTIAZem HCl - 60 MG Oral Tablet; TAKE 1 TABLET BY MOUTH DAILY; Therapy: 14Apr2017 to (Evaluate:[id number]) Requested for: [id number] Recorded 3. Dofetilide 250 MCG Oral Capsule; TAKE 1 CAPSULE TWICE DAILY; Therapy: (Recorded:[id number]) to Recorded 4. Metoclopramide HCl - 5 MG Oral Tablet (Reglan); TAKE 1 TABLET BY MOUTH THREE TIMES DAILY WITH MEALS; Therapy: 10Sep2014 to (Evaluate:17Sep2017) Requested for: 20May2017; Last Rx:20May2017 Ordered 5. Metoprolol Tartrate 50 MG Oral Tablet; TAKE 1 TABLET TWICE DAILY; Therapy: (Recorded:[id number]) to Recorded 6. Tylenol Extra Strength 500 MG Oral Tablet; Therapy: (Recorded:[id number]) to Recorded 7. Warfarin Sodium 5 MG Oral Tablet (Coumadin); Take as directed by [facility]; Therapy: [id number] to (Evaluate:28May2018) Requested for: 02Jun2017 Recorded Medication Discrepancies The current and discharge medication lists were reconciled and reviewed with the patient. The following family member(s) / friend(s) were involved during the medication reconciliation: The following medication additions were made at the time of discharge and updated in our EHR: tikosyn The following medication(s) were discontinued at the time of discharge and updated in our EHR: flomax The following medication(s) were changed at the time of discharge and updated in our EHR: diltiazem The patient's primary care provider and/or the pharmacy have been updated on the medication discrepancies. The medication list was updated in our EHR. An updated copy of the patient's reconciled medication list was provided to the patient. The medication list was was sent to patient in the mail. Additional Comments: Patient called today, 06/25/2017. CRISTIAN states he is feeling better. States hefeels very good after his procedure. No complaints. Wearing a holter monitor until wednesday. Will f/uwith cardiology in 1 month and get INR checked next week. Reviewed 24 hour sheet rock installer line, when to call PCP, and when to call 911. Patient voiced understanding. STACY Rasheed Follow-Up Recommendations Follow up with the following provider(s): cardiology 1 mo I reviewed with the patient the 24 hour nurse line and ecouraged them to call if they had any questions or concerns. Patient voiced understanding. Signatures Electronically signed by : Emma Estrella RN; Jun 25 2017 11:25AM DIE DESIGNER documented in this encounter Plan of Treatment Not on file documented as of this encounter Visit Diagnoses Not on filedocumented in this encounter Care Teams Donor Recruiter Relationship Specialty Start Date End Date Casey Berry II, DO PCP - General 11/22/06 08/17/19 Stephani Aleman MD PCP - General Family Medicine 08/18/19 09/16/20 Bianka Loera CNP [address] [facility] 2 [place] [phone] PCP - General Nurse Practitioner Family 09/17/20 7/12/31 [place] [address] [place] [address] PCP - General Electrophysiology 02/23/22 03/09/22 Desiree Patrick MD [address] [place] [address] 08/09/17 Farrah Nicole APRN,PRINTER SMALL PRINT SHOP [address] [place] [address] 08/09/17 Bry Echevarria MD [address] [place] [address] [place] [address] 08/09/17 Casey Berry II, DO 08/09/17 Shruti Vergara RN RN Registered Nurse 08/27/20 documented as of this encounter Additional Source Comments PLEASE NOTE: Replies to this message will not be received.[facility] and [facility]
--- OUTSIDE RECORDS SUMMARY | 2023-08-16 11:20 | XMS_ITS | Encounter Summary ---
Author Name Unknown Organization [employer] Address [address] [place] [address] Care Team Providers Care Grader Operator Name Role Phone Jamal CARLISLE DO, Robert William Primary Care Provide r Unavailable Desiree Patrick MD Unavailable Farrah Nicole APRN,COMPUTER NUMERICAL CONTROL PROGRAMMER Unavailable Bry Echevarria MD Unavailable Jamal CARLISLE DO, Robert William Unavailable Unav Stephani Diaz MD Primary Care Provider Shruti Vergara RN Unavailable Unavailable Bianka Loera CNP Primary Care Provider Desiree Patrick MD Primary Care P rovider Encounter Details Date Type Department Care Team Description 07/01/[address] [facility] [address] [facility] [address] [place] [place] [id number] Bry Echevarria MD [address] [place] [address] Social History Tobacco Use Types [...] as of this encounter Progress Notes * Bry Echevarria MD - 07/01/2017 12:00 AM CST Assessment 1. Atrial fibrillation, currently in sinus rhythm (427.31) (Z86.79) 2. Chronic anticoagulation (V58.61) (Z79.01) 3. Former smoker: 0 - 10 pack years (V15.82) (Z87.891) Plan 1. Continue digoxin and diltiazem and metoprolol and dofetilide as per the instructions of his cardiology group for his atrial fibrillation.Follow-up with Dr. Berry, his primary care physician, in August 2017 for his yearly physical.Continue warfarin to maintain an INR of 2-3. He has a follow-up ap pointment with the anticoagulation clinic in [facility] on July 09, 2017.[facility] [place] [facility] [address] [facility]. The medicine list was reconciled. History of Present Illness Mr Carroll is a 71-year-old white male who comes to my on-call internal medicine clinic today forfollow-up of her recent hospitalization. His primary care physician is Dr. Berry. The patient was hospitalized in [place] last week and he underwent a cardioversion with the dofetilide. He is now onthat medication twice a day. His INR was slightly elevated at 3.2 when he was up in [place]. He was told to come in today for an INR check. He has not had any problems with bleeding. We did check his anticoagulation and his INR was therapeutic at 2.8. He will follow-up with the anticoagulation clinic in [facility] in 8 days and he will have his INR checked again at that time. He is currently on digoxin and diltiazem and metoprolol and dofetilide for his atrial fibrillation, in addition to the anticoagulation with warfarin. His blood pressure is normal today. His heart rate is regular and at a rate of 54. He has not had palpitations or dyspnea or orthopnea or weight gain or leg edema. He has not had the fluttering sensation that he usually has when he is in atrial fibrillation.He is following up with [place] cardiology in 1 month. Allergies 1. Penicillins 2. Sulfa Drugs Vitals Vital Signs Recorded: [id number] 02:41PM Systolic 136, LUE, Sitting Diastolic 70, LUE, Sitting Heart Rate 54, L Radial Pulse Quality Regular, L Radial Respiration Quality Normal Respiration 16 Temperature 97.5 F, Forehead Weight 97.6 kg BMI Calculated 28.49 BSA Calculated 2.22 O2 Saturation 98, RA Physical Exam General Appearance: CRISTIAN is healthy-appearing, alert and in no acute distress. Head and Face: normocephalic. ENT: the oropharynx was clear. Neck: supple. normal range of motion Pulmonary: normal bilateral breath sounds, clear to auscultation bilaterally and no respiratory distress. Cardiovascular: Heart rate is borderline bradycardic at 54., but normal heart rate and rhythm, no murmurs heard and no pericardial rubs. Abdomen: soft, non-tender and normal bowel sounds. Musculoskeletal: no clubbing or cyanosis and no edema. Neurologic: cranial nerves are grossly intact. Psychiatric: appropriate mood and affect, good eye contact and answers questions appropriately. Results/Data Results, Free Text - [facility]: is therapeutic at 2.8. Signatures Electronically signed by : Bry Echevarria M.D.; Jul 01 2017 3:31PM DIRECTOR OF EVENT SALES (Author) documented in this encounter Plan of Treatment Not on file documented as of this encounter Visit Diagnoses Not on filedocumented in this encounter Care Teams Grader Operator Relationship Specialty Start Date End Date Casey Berry II DO PCP - General 11/22/06 08/17/19 Stephani Aleman MD PCP - General Family Medicine 08/18/19 09/16/20 Bianka Loera, HAND SCUDDER [address] [place] [phone] PCP - General Nurse Practitioner Family 09/17/2001/10 Desiree Patrick MD [address] [place] [address] PCP - General Electrophysiology 02/23/22 03/09/22 Desiree Patrick MD [address] [place] [address] 08/09/17 Farrah Nicole APRN,[facility] [address] [place] [address] 08/09/17 Bry Echevarria MD [address] [place] [address] [place] [phone] 08/09/17 Casey Berry II, DO 08/09/17 Shruti Vergara, RN RN Registered Nurse 08/27/20 documented as of this encounter Additional Source Comments PLEASE NOTE: Replies to this message will not be received.[facility]
--- OUTSIDE RECORDS SUMMARY | 2023-08-16 11:20 | XMS_ITS | Encounter Summary ---
Author Name Unknown Organization [employer] Address [address] [place] [address] Care Team Providers Care Pastry Baker Name Role Phone Jamal CARLISLE DO, Robert William Primary Care Provide r Unavailable Desiree Patrick MD Unavailable Farrah Nicole APRN,WORLD TRAVEL COUNSELOR Unavailable Bry Echevarria MD Unavailable Jamal CARLISLE DO, Robert William Unavailable Unav Stephani Diaz MD Primary Care Provider Shruti Vergara RN Unavailable Unavailable Bianka Loera CNP Primary Care Provider [phone] Desiree Patrick MD Primary Care P rovider Encounter Details Date Type Department Care Team Description 06/23/2018 Historical Conversion [facility] Family Medicine [address] [place] [address] Moon Maloney MD Social History Tobacco Use [...] Sign Reading Time Taken Comments Blood Pressure 120/62 06/23/2018 12:00 AM STEEL BOX TOE INSERTER Pulse - - Temperature - - Respiratory Rate - - Oxygen Saturation - - Inhaled Oxygen Concentration - - Weight 93.5 kg (206 lb 2.1 oz) 06/23/2018 12:00 AM STEEL BOX TOE INSERTER Height - - Body Mass Index 27.2 06/20/2018 8:23 AM STEEL BOX TOE INSERTER documented in this encounter Functional Status Functional [...] on filedocumented in this encounter Care Teams Pastry Baker Relationship Specialty Start Date End Date Casey Berry II, DO PCP - General 11/22/06 08/17/19 Stephani Aleman MD PCP - General Family Medicine 08/18/19 09/16/20 Bianka Loera CNP [address] [place] [address] 2 [place] [address] PCP - General Nurse Practitioner Family 09/17/2001/10 Desiree Patrick MD [address] [place] [address] PCP - General Electrophysiology 02/23/22 03/09/22 Desiree Patrick MD [address] [place] [address] 08/09/17 Farrah Nicole APRN,WORLD TRAVEL COUNSELOR [address] [place] [address] 08/09/17 Bry Echevarria MD [address] [place] [address] 08/09/17 Casey Berry II, DO 08/09/17 Shruti Vergara RN RN Registered Nurse 08/27/20 documented as of this encounter Additional Source Comments PLEASE NOTE: Replies to this message will not be received.[facility] and [facility]
--- OUTSIDE RECORDS SUMMARY | 2023-08-16 11:20 | XMS_ITS | Encounter Summary ---
Author Name Unknown Organization [employer] Address [address] [place] [address] Care Team Providers Care Straightedge Man Name Role Phone Jamal CARLISLE DO, Robert William Primary Care Provide r Unavailable Desiree Patrick MD Unavailable Farrah Nicole APRN,VOCATIONAL AIDE Unavailable [phone] Bry Echevarria MD Unavailable Jamal CARLISLE DO, Robert William Unavailable Unav Stephani Diaz MD Primary Care Provider [phone] Shruti Vergara RN Unavailable Unavailable Bianka Loera CNP Primary Care Provider Desiree Patrick MD Primary Care P rovider Encounter Details Date Type Department Care Team Description 06/13/2018 Historical Conversion [facility] [address] [facility] [address] [place] [place] [phone] Bry Echevarria MD [address] [place] [address] Social History Tobacco Use Types [...] Progress Notes * Bry Echevarria MD - 06/13/2018 12:00 AM CST CRISTIAN BLEDSOE : 1945 HX: [id number] DOS: 06/13/2018 SUBJECTIVE: Patient is a 72-year-old white male who presents today with a one week history of dysuria at the urethral meatus only. He denies bladder symptoms. He denies gross hematuria. He denies frequency, urgency, bladder spasms. He denies abdominal pain, flank pain, and back pain. He denies a history of kidney stones. He does have a history of prostate cancer which was treated with radiation. His PSA has been staying down. He has been following with Dr. Maloney and Mare Rubi PA-C, in Urology, and he has been seeing Dr. Jose Winslow in Radiation Oncology at the [facility] [place]. He has not recently had cystoscopy. He reports he empties his bladder fine and his most recent bladder emptying scan was normal. He has not had fevers or chills.He denies any urethral discharge and he has not noticed any sores or lesions on the penis. He has not been prone to fungal infections or bacterial infections. PAST MEDICAL HISTORY: 1. Atrial fibrillation. 2. Prostate cancer treated with radiation. 3. Hypertension. 4. Sleep apnea. 5. Low vitamin D levels. MEDICATIONS: 1. Dofetilide. 2. Warfarin. 3. Lisinopril. 4. Reglan. 5. MiraLAX. 6. Viagra. 7. Triamcinolone 0.1% lotion. ALLERGIES: 1. PENICILLIN. 2. SULFA. OBJECTIVE: VITALS: Vital signs reviewed in [employer]. Please, see vitals tab for details. Weight 93.8 kg. Blood pressure 120/78. Heart rate 65. Respiratory rate 18. Temperature 98.1 degrees. Sats 95% on room air. GENERAL: Pleasant white male in no acute distress. He is alert and oriented x three. NECK: Supple. BACK: Nontender over the spine and costovertebral angles to palpation and percussion. LUNGS: Clear to auscultation and percussion bilaterally; no wheezes, rales, or rhonchi. CARDIOVASCULAR: Irregularly irregular rhythm with good rate control. No murmurs or rubs. ABDOMEN: Soft, nontender. No suprapubic or flank tenderness. No rebound or guarding. No hepatosplenomegaly or masses. Abdomen is very benign. No flank tenderness. EXTREMITIES: No cyanosis, clubbing, or edema. NEUROLOGIC: Grossly nonfocal; he ambulates without difficulty. He is alert and oriented x 3. He is pleasant and cooperative. GENITALIA: Examination reveals the external penis and the penile shaft to be within normal limits. He is circumcised. I do not see any signs of fungal infection or dermatitis. The urethral meatus is normal. There is no urethral discharge. The testicles are without masses or tenderness. The scrotum is otherwise unremarkable. LAB DATA: Urinalysis reveals 20-30 red blood cells with 2+ blood and is otherwise normal. His nitrites and leukocyte esterase are negative. His white blood cells are normal. ASSESSMENT: 1. One week of dysuria at the urethral meatus, etiology unclear. 2. Prostate cancer, status post treatment with radiation. [place] to be under good control at this time. His most recent PSA was 0.05. 3. Microscopic hematuria. PLAN: 1. Urology consultation with Dr. Maloney on 06/23/18 to evaluate distal urethral dysuria and microscopic hematuria. 2. Send urine for culture. If he grows bacteria we will certainly consider treating him with antibiotics. 3. If patient develops fevers, chills, weakness, or bladder symptoms he was instructed to return for reevaluation sooner rather than later. Bry Echevarria M.D./ekg-6 cc: Yury Berry DO/[facility] Radha cc: Elder Maloney MD/[facility] Radha cc: Mare Rubi PA-C/[facility] Radha cc: Jose Winslow MD/[facility] Electronically signed by:Bry Echevarria M.D. Jun 16 2018 2:16PM BEEF GRADER documented in this encounter Plan of Treatment Not on file documented as of this encounter Visit Diagnoses Not on filedocumented in this encounter Care Teams Straightedge Man Relationship Specialty Start Date End Date Casey Berry II, DO PCP - General 11/22/06 08/17/19 Stephani Aleman MD PCP - General Family Medicine 08/18/19 09/16/20 Bianka Loera NICK SETTER [address] [place] [phone] PCP - General Nurse Practitioner Family 09/17/2001/10 Desiree Patrick MD [address] [place] [address] PCP - General Electrophysiology 02/23/22 03/09/22 Desiree Patrick MD [address] [place] [address] 08/09/17 Farrah Nicole APRN,VOCATIONAL AIDE [address] [place] [address] 08/09/17 Bry Echevarria MD [address] [place] [address] 08/09/17 Casey Berry II, DO 08/09/17 Shruti Vergara RN RN Registered Nurse 08/27/20 documented as of this encounter Additional Source Comments PLEASE NOTE: Replies to this message will not be received.[facility] and [facility]
--- OUTSIDE RECORDS SUMMARY | 2023-08-16 11:20 | XMS_ITS | Encounter Summary ---
Author Name Unknown Organization [employer] Address [address] [place] [address] Care Team Providers Care A/C Tech Name Role Phone Jamal CARLISLE DO, Robert William Primary Care Provide r Unavailable Desiree Patrick MD Unavailable Farrah Nicole APRN,GARBAGE COLLECTOR DRIVER Unavailable Bry Echevarria MD Unavailable Jamal CARLISLE DO, Robert William Unavailable Unav Stephani Diaz MD Primary Care Provider [phone] Shruti Vergara RN Unavailable Unavailable Bianka Loera CNP Primary Care Provider Desiree Patrick MD Primary Care P rovider Encounter Details Date Type Department Care Team Description 07/01/2017 Historical Conversion [facility] [address] [facility] [address] [place] [place] [phone] Bry Echevarria MD [address] [place] [address] Social History Tobacco Use Types [...] Sign Reading Time Taken Comments Blood Pressure 136/70 07/01/2017 12:00 AM MILLER HELPER DISTILLERY Pulse - - Temperature - - Respiratory Rate - - Oxygen Saturation - - Inhaled Oxygen Concentration - - Weight 97.6 kg (215 lb 2.7 oz) 07/01/2017 12:00 AM MILLER HELPER DISTILLERY Height - - Body Mass Index 28.39 06/21/2017 2:27 PM MILLER HELPER DISTILLERY documented in this encounter Functional Status Functional [...] on filedocumented in this encounter Care Teams A/C Tech Relationship Specialty Start Date End Date Casey Berry II, DO PCP - General 11/22/06 08/17/19 Stephani Aleman MD PCP - General Family Medicine 08/18/19 09/16/20 Bianka Loera CNP [address] [facility] [address] [facility] [address] [place] [address] PCP - General Nurse Practitioner Family 09/17/2001/10 Desiree Patrick MD [address] [place] [address] PCP - General Electrophysiology 02/23/22 03/09/22 Desiree Patrick MD [address] [place] [address] 08/09/17 Farrah Nicole APRN,GARBAGE COLLECTOR DRIVER [address] [place] [address] 08/09/17 Bry Echevarria MD [address] [place] [address] [place] [address] 08/09/17 Casey Berry II, DO 08/09/17 Shruti Vergara RN RN Registered Nurse 08/27/20 documented as of this encounter Additional Source Comments PLEASE NOTE: Replies to this message will not be received.[facility] and [facility]
--- OUTSIDE RECORDS SUMMARY | 2023-08-16 11:20 | XMS_ITS | Encounter Summary ---
Author Name Unknown Organization [employer] Address [address] [place] [address] Care Team Providers Care Alcohol Rubber Name Role Phone Jamal CARLISLE DO, Robert William Primary Care Provide r Unavailable Desiree Patrick MD Unavailable Farrah Nicole APRN,CERTIFIED HYPERBARIC TECHNOLOGIST Unavailable Bry Echevarria MD Unavailable [phone] Jamal CARLISLE DO, Robert William Unavailable Unav Stephani Diaz MD Primary Care Provider Shruti Vergara RN Unavailable Unavailable Bianka Loera CNP Primary Care Provider Desiree Patrick MD Primary Care P rovider Encounter Details Date Type Department Care Team Description 09/07/2017 Historical Conversion [facility] Family Medicine [address] [place] [id number] Casey Berry II, DO Social History Tobacco [...] Sign Reading Time Taken Comments Blood Pressure 144/85 09/07/2017 12:00 AM AIRCRAFT CLEANING SUPERVISOR Pulse - - Temperature - - Respiratory Rate - - Oxygen Saturation - - Inhaled Oxygen Concentration - - Weight 94.3 kg (207 lb 14.3 oz) 018 12:00 AM AIRCRAFT CLEANING SUPERVISOR Height 185.5 cm (6' 1.03) 09/07/2017 1 2:00 AM AIRCRAFT CLEANING SUPERVISOR Body Mass Index 27.4 09/07/2017 12:00 AM AIRCRAFT CLEANING SUPERVISOR documented in this encounter Functional Status Functional [...] on filedocumented in this encounter Care Teams Alcohol Rubber Relationship Specialty Start Date End Date Casey Berry II, DO PCP - General 11/22/06 08/17/19 Stephani Aleman MD PCP - General Family Medicine 08/18/19 09/16/20 Bianka Loera CNP [address] [facility] [address] [place] [address] PCP - General Nurse Practitioner Family 09/17/2001/10 [place] [address] [place] [id number] PCP - General Electrophysiology 02/23/22 03/09/22 Desiree Patrick MD [address] [facility] [place] [address] 08/09/17 Farrah Nicole APRN,CERTIFIED HYPERBARIC TECHNOLOGIST [address] [facility] [place] [address] 08/09/17 Bry Echevarria MD [address] [place] [address] [place] [address] 08/09/17 Casey Berry II, DO 08/09/17 Shruti Vergara RN RN Registered Nurse 08/27/20 documented as of this encounter Additional Source Comments PLEASE NOTE: Replies to this message will not be received.[facility]
--- OUTSIDE RECORDS SUMMARY | 2023-08-16 11:20 | XMS_ITS | Encounter Summary ---
Author Name Unknown Organization [employer] Address [address] [place] [address] Care Team Providers Care Public Health Advisor Name Role Phone Jamal CARLISLE DO, Robert William Primary Care Provide r Unavailable Desiree Patrick MD Unavailable Farrah Nicole APRN,DRY ROOM ATTENDANT Unavailable Bry Echevarria MD Unavailable Jamal CARLISLE DO, Robert William Unavailable Unav xiable Stephani Aleman MD Primary Care Provider Shruti Vergara RN Unavailable Unavailable Bianka Loera CNP Primary Care Provider [phone] Desiree Patrick MD Primary Care P rovider Encounter Details Date Type Department Care Team Description 06/13/2018 Historical Conversion [facility] Family Medicine [address] [place] [id number] Social History Tobacco Use Types Packs/Day Years [...] as of this encounter Progress Notes * [facility], GENER[facility] - 11/02/2018 12:00 AM CDT Balance Center CRISTIAN BLEDSOE : 1945 DOS: 11/02/2018 SUBJECTIVE: Patient has no complaints. OBJECTIVE: 45 minutes of exercise is performed including heel cord stretching on incline board for 30 seconds 3 repetitions, seated hamstring stretch holding for 30 seconds 3 repetitions each, seateddorsiflexion with a 3 pound weight on the dorsum of the foot 3 sets of 10 bilaterally, seated plantar flexion at 3 sets of 10, standing squats at a 25-1/2 inch seat height 2 sets of 10, 6 inch forward step up 2 sets of 10 repetitions, terminal knee extension with the black Thera tube 20 repetitionsbilaterally and patient has difficulty performing these correctly. He performs walking with horizontal head turns 30 feet x6 contact- guard assist, walking with vertical head tips 30 feet x6 contact-guard assist walking and stepping over 3 8 inch foam blocks 20 feet x6 3 errors, toe taps with 7: 20 feet x6 contact-guard assist, high marching 30 feet x4 contact-guard assist assist and sidestepping 20 feet x2 cues were given keep his trunk facing forward toes pointed straight. ASSESSMENT: Imbalance, muscle weakness, muscle tightness and bilateral foot drop. PLAN: Continue 1 time a week. Joan Everett PTA/Kassy Barone PT, [place] #[id number] Electronically signed by:Joan Everett PTA Nov 02 2018 2:00PM STONE DERRICKMAN AND RIGGER Flake Cutter Operator/Recorder Electronically signed by:Trish Barone PT Nov 07 2018 4:43PM STONE DERRICKMAN AND RIGGER * [facility] - 10/26/2018 12:00 AM CDT Balance Center CRISTIAN BLEDSOE : 1945 DOS: 10/26/2018 SUBJECTIVE: Patient offers no complaints. OBJECTIVE: 45 minutes of exercise is performed including heel cord stretching on the incline board for 30 seconds 3 repetitions, seated hamstring stretch holding for 30 seconds 3 repetitions each, seated ankle dorsiflexion with 2 pound cuff weights on the foot 3 sets of 10, sit to stand at a 25-1/2inch seat height 1 set of 10, terminal knee extension with a green Thera tube at 20 repetitions bila terally. ASSESSMENT: Difficulty walking, muscle tightness and muscle weakness. PLAN: Continue 1 time a week. Joan Everett PTA/Kassy Barone PT, [place] #[id number] Electronically signed by:Joan Everett PTA Oct 28 2018 7:51AM STONE DERRICKMAN AND RIGGER Flake Cutter Operator/Recorder Electronically signed by:Trish Barone PT Oct 31 2018 7:01PM STONE DERRICKMAN AND RIGGER * [facility] - 09/19/2018 12:00 AM CDT PHYSICAL THERAPY STUDENT NOTE BALANCE EVALUATION CRISTIAN BLEDSOE : 1945 HX: [id number] DOS: 09/19/2018 REFERRING PROVIDER: Casey Berry D.O. [...] when he tilts his head forward. He becomes unsteady with this activity and duration of the dizziness lasts seconds to minutes. Patient reports that he cannot do heel-to-toe tandem walking and/or tiptoe walking. He reports that he is off- balance while standing or with upright ambulation. 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 He is currently [...] MCTSIB: Firm EO: 30 seconds. Firm EC: 15 seconds, 10 seconds, 20 seconds, Average: 15 seconds. Foam EO: 30 seconds. Foam EC: 5 seconds, 15 seconds, 10 seconds, Average: 10 seconds. Total score: 85/120. Please see scanned documents for scoring of individual items. Pretreatment Walk Test: Patient has right veer and subjective imbalance with vertical head tips. Patient has stable gait and no subjective dizziness with horizontal head turns. During ambulation patient demonstrates a left Trendelenburg gait. Posttreatment Walk Test: Patient has decreased veering to the right and no subjective imbalance with vertical head tips following repositioning maneuvers. Treatment provided: Patient received a right anterior canal Semont maneuver for right anterior canal cupulolithiasis. Patient was educated on positional restriction recommendations of not bending over at his waist and not lying flat until bedtime tonight. Patient verbalizes understanding. ASSESSMENT: #1) Right ear BPPV. #2) Multifactorial imbalance. #3) Delayed vibrational sense in bilateral lower extremities.- contributing to #2 #4) Poor integration of vestibular input- contributing to #2 PLAN: Patient is to follow up in one to two weeks for continued assessment of BPPV and for continued assessment of imbalance. At next session, patient will be rechecked for BPPV and will complete theFunctional Gait Assessment and will receive canalith repositioning [...] PATIENT RECEIVED: Patient received 30 minutes of aeth-vy-wbjt evaluation with three or more comorbidities and three or more elements addressed. Clinical presentation is evolving and clinical complexity is moderate. Patient also received canalith repositioning maneuvers on this date. Lennox Malagon SPT/Trish Barone, PT #[id number] / lb-12 cc: Casey Berry D.O., [facility] Electronically signed by:Lennox Malagon Sep 20 2018 7:56PM STONE DERRICKMAN AND RIGGER Co-author Electronically signed by:Lennox Malagon Sep 27 2018 8:39AM STONE DERRICKMAN AND RIGGER Co-author Electronically signed by:Trish Barone PT Oct 02 2018 5:18PM STONE DERRICKMAN AND RIGGER documented in this encounter Procedure Notes * [facility] - 10/26/2018 12:00 AM CDTAssociated Order(s): ANTICOAGULATION Name: CRISTIAN BLEDSOE : 1945 DOS: 10/26/2018 Cristian is a patient of Dr. Berry. He is here today for anticoagulation assessment and INR check for adiagnosis of atrial fibrillation. Patient states that he has been feeling well. He denies any medication changes since his last INR check. INR tested today is 2.0 with the recommended range of 2.0 to3.0. Patient will continue Coumadin at 7.5 mg on Wednesday, Wednesday and 5 mg all other days with an INR recheck in one month, sooner for any changes. Patient verbalizes understanding. Electronically signed by:Tiffani Carrero RN Oct 26 2018 4:16PM STONE DERRICKMAN AND RIGGER * [facility] - 10/11/2018 12:00 AM CDTAssociated Order(s): ANTICOAGULATION Anticoagulation Clinic [facility] Name: CRISTIAN BLEDSOE : 1945 DOS: 10/11/2018 Cristian is a patient of Dr. Berry. He is here today for anticoagulation assessment and INR check for adiagnosis of atrial fibrillation. Patient states that he has been feeling well. He denies any medication changes since his last INR check. Patient does report that he has been taking some vitamin supplements that contain Vitamin K. INR tested today is 1.9 with the recommended range of 2.0 to 3.0. Patient will adjust Coumadin to 7.5 mg on Wednesday, Wednesday and 5 mg all other days with an INR recheck in two months. Patient verbalizes understanding. Electronically signed by:Tiffani Carrero RN Oct 11 2018 3:39PM STONE DERRICKMAN AND RIGGER * [facility] - 09/07/2018 12:00 AM CSTAssociated Order(s): ANTICOAGULATION Anticoagulation [facility] Name: CRISTIAN BLEDSOE : 1945 DOS: 09/07/2018 Cristian is a patient of Dr. Berry. He is here today for anticoagulation assessment and INR check for adiagnosis of atrial fibrillation. Patient states that he has been feeling well. He denies any medication changes since his last INR check. INR tested today is therapeutic at 2.7 with the recommended range of 2.0 to 3.0. Patient will continue Coumadin at 7.5 mg on Wednesdays and 5 mg all other days w ith an INR recheck in one month, sooner for any changes. Patient verbalizes understanding. Electronically signed by:Tifafni Carrero RN Sep 07 2018 3:31PM STONE DERRICKMAN AND RIGGER * [facility] - 08/22/2018 12:00 AM CSTAssociated Order(s): ANTICOAGULATION Anticoagulation [facility] Name: CRISTIAN BLEDSOE : 1945 DOS: 08/22/2018 Cristian is a patient of Dr. Berry. [...] verbalizes understanding. Electronically signed by:Tiffani Carrero RN Aug 22 2018 2:48PM STONE DERRICKMAN AND RIGGER * [facility], GENERICPROVIDER - 07/13/2018 12:00 AM CSTAssociated Order(s): ANTICOAGULATION Anticoagulation Clinic [facility] Name: CRISTIAN BLEDSOE : 1945 DOS: 07/13/2018 Cristian is a patient of Dr. Berry. He is here today for anticoagulation assessment and INR check for adiagnosis of atrial fibrillation. Patient states that he has been feeling well. He denies any medication changes since his last INR check. Patient states that he is having a cystoscope with Dr. Chapa 07/14/18. Per Dr. Maloney no Coumadin adjustments are needed. INR tested today is therapeutic at 2.5 with the recommended range of 2.0 to 3.0. Patient will continue Coumadin at 7.5 mg on Wednesdays and 5 mg all other days with an INR recheck in one month, sooner for any changes. Patient verbalizes understanding. Electronically signed by:Tiffani Carrero RN Jul 13 2018 2:41PM STONE DERRICKMAN AND RIGGER * [facility] - 06/13/2018 12:00 AM CSTAssociated Order(s): ANTICOAGULATION [facility] Comments 06/13/18 Patient having root canal. ? if need to change Coumadin. Advised no need to change Coumadin. Please notify [facility] if antibiotics started for abscess. Amie Mandel RN Patient called in today and states that he had an episode of Atrial Fibrillation on the weekend. Hestates that he accidentally flip flopped his Coumadin dose. Patient is encouraged to return to his regular scheduled dose of Coumadin at 5 mg Wednesday, Wednesday and 7.5 mg all other days with his INR check scheduled on Mar.18. Patient verbalizes understanding Signatures Electronically signed by : Deborah Mandel RN; Jun 13 2018 12:37PM STONE DERRICKMAN AND RIGGER documented in this encounter Plan of Treatment Not on file documented as of this encounter Procedures Procedure Name Priority Date/Time Associated Diagnosis Comments ANTICOAGULATION 10/26/2018 ANTICOAGULATION 10/11/2018 ANTICOAGULATION 09/07/2018 ANTICOAGULATION 08/22/2018 ANTICOAGULATION 07/13/2018 ANTICOAGULATION 06/13/2018 documented in this encounter Results * ANTICOAGULATION (10/26/2018) Narrative Procedure Note [facility] - 10/26/2018 12:00 AM CDT Name: CRISTIAN BLEDSOE : 1945 DOS: 10/26/2018 Cristian is a patient of Dr. Berry. He is here today for anticoagulationassessment and INR check for a diagnosis of atrial fibrillation. Patientstates that he has been feeling well. He denies any medication changessince his last INR check. INR tested today is 2.0 with the recommendedrange of 2.0 to 3.0. Patient will continue Coumadin at 7.5 mg onWe, Wednesday and 5 mg all other days with an INR recheck in onemonth, sooner for any changes. Patient verbalizes understanding. Electronically signed by:Tiffani Carrero RN Oct 26 2018 4:16PM STONE DERRICKMAN AND RIGGER [facility] OTHER * ANTICOAGULATION (10/11/2018) Narrative Procedure Note [facility], GENERICPROGINADER - 10/11/2018 12:00 AM CDT Anticoagulation Clinic [facility] Name: CRISTIAN BLEDSOE : 1945 DOS: 10/11/2018 Cristian is a patient of Dr. Berry. He is here today for anticoagulationassessment and INR check for a diagnosis of atrial fibrillation. Patientstates that he has been feeling well. He denies any medication changessince his last INR check. Patient does report that he has been taking somevitamin supplements that contain Vitamin K. INR tested today is 1.9 withthe recommended range of 2.0 to 3.0. Patient will adjust Coumadin to 7.5mg on Wednesday, Wednesday and 5 mg all other days with an INR recheck in twomonths. Patient verbalizes understanding. Electronically signed by:Tiffani Carrero RN Oct 11 2018 3:39PM STONE DERRICKMAN AND RIGGER [facility] OTHER * ANTICOAGULATION (09/07/2018) Narrative Procedure Note [facility] - 09/07/2018 12:00 AM CST Anticoagulation [facility] Name: CRISTIAN BLEDSOE : 1945 DOS: 09/07/2018 Cristian is a patient of Dr. Berry. He is here today for anticoagulationassessment and INR check for a diagnosis of atrial fibrillation. Patientstates that he has been feeling well. He denies any medication changessince his last INR check. INR tested today is therapeutic at 2.7 with therecommended range of 2.0 to 3.0. Patient will continue Coumadin at 7.5 mgon Wednesdays and 5 mg all other days with an INR recheck in one month,sooner for any changes. Patient verbalizes understanding. Electronically signed by:Tiffani Carrero RN Sep 07 2018 3:31PM STONE DERRICKMAN AND RIGGER [facility] OTHER * ANTICOAGULATION (08/22/2018) Narrative Procedure Note [facility] - 08/22/2018 12:00 AM CST Anticoagulation [facility] Name: CRISTIAN BLEDSOE : 1945 DOS: 08/22/2018 Cristian is a patient of Dr. Berry. [...] INR recheck in two weeks.Patient verbalizes understanding. Electronically signed by:Tiffani Carrero RN Aug 22 2018 2:48PM STONE DERRICKMAN AND RIGGER [facility] OTHER * ANTICOAGULATION (07/13/2018) Narrative Procedure Note [facility] - 07/13/2018 12:00 AM CST Anticoagulation Clinic [facility] Name: CRISTIAN BLEDSOE : 1945 DOS: 07/13/2018 Cristian is a patient of Dr. Berry. He is here today for anticoagulationassessment and INR check for a diagnosis of atrial fibrillation. Patientstates that he has been feeling well. He denies any medication changessince his last INR check. Patient states that he is having a cystoscopewith Dr. Maloney on 07/14/18. Per Dr. Maloney no Coumadin adjustments areneeded. INR tested today is therapeutic at 2.5 with the recommended rangeof 2.0 to 3.0. Patient will continue Coumadin at 7.5 mg on Wednesdays and5 mg all other days with an INR recheck in one month, sooner for anychanges. Patient verbalizes understanding. Electronically signed by:Tiffani Carrero RN Jul 13 2018 2:41PM STONE DERRICKMAN AND RIGGER [facility] OTHER * ANTICOAGULATION (06/13/2018) Narrative Procedure Note [facility] - 06/13/2018 12:00 AM CST [facility] Comments 06/13/18 Patient having root canal. ? if need to change Coumadin. Advisedno need to change Coumadin . Please notify [facility] if antibiotics started forabscess. Amie Mandel RN Patient called in today and states that he had an episode of AtrialFibrillation on the weekend. He states that he accidentally flip floppedhis Coumadin dose. Patient is encouraged to return to his regularscheduled dose of Coumadin at 5 mg Wednesday, Wednesday and 7.5 mg all otherdays with his INR check scheduled on Mar.18. Patient verbalizesunderstanding Signatures Electronically signed by : Deborah Mandel RN; Jun 13 2018 12:37PM STONE DERRICKMAN AND RIGGER Genericproder [facility] OTHER documented in this encounter Visit Diagnoses Not on filedocumented in this encounter Care Teams Public Health Advisor Relationship Specialty Start Date End Date Casey Berry II, DO PCP - General 11/22/06 08/17/19 Stephani Aleman MD PCP - General Family Medicine 08/18/19 09/16/20 Bianka Loera CNP [address] [place] [id number] PCP - General Nurse Practitioner Family 09/17/2001/10 Desiree Patrick MD [address] [place] [address] PCP - General Electrophysiology 02/23/22 03/09/22 Desiree Patrick MD [address] [place] [address] 08/09/17 Farrah Nicole APRN,DRY ROOM ATTENDANT [address] [place] [address] 08/09/17 Bry Echevarria MD [address] [place] [address] 08/09/17 Casey Berry II, DO 08/09/17 Shruti Vergara RN RN Registered Nurse 08/27/20 documented as of this encounter Additional Source Comments PLEASE NOTE: Replies to this message will not be received.[facility]
--- OUTSIDE RECORDS SUMMARY | 2023-08-16 11:20 | XMS_ITS | Encounter Summary ---
Author Name Unknown Organization [employer] Address [address] [place] [address] Care Team Providers Care Almond Paste Mixer Name Role Phone Jamal CARLISLE DO, Robert William Primary Care Provide r Unavailable Desiree Patrick MD Unavailable Farrah Nicole APRN,MIXER TENDER Unavailable [phone] Bry Echevarria MD Unavailable [phone] Jamal CARLISLE DO, Robert William Unavailable Unav xiable Stephani Aleman MD Primary Care Provider Shruti Vergara RN Unavailable Unavailable Bianka Loera CNP Primary Care Provider [phone] Desiree Patrick MD Primary Care P rovider Encounter Details Date Type Department Care Team Description 06/23/2018 Historical Conversion [facility] Family Medicine [address] [place] [address] Moon Maloney MD Social History Tobacco Use [...] as of this encounter Progress Notes * Moon Maloney MD - 07/22/2018 12:00 AM CST UROLOGY [facility] CRISTIAN BLEDSOE : 1945 HX: [id number] DOS: 07/22/2018 SUBJECTIVE: Cristian saw me on June 23, 2018. He had a sudden onset of some urgency and frequency.We ended up doing a CT scan. I thought for sure he had a stone. The CT scan did not show any stone in his ureter, so he is here for a cystoscopy because of the abnormal cytology. As far as the frequency, it is getting better. It is not as severe as it was. PHYSICAL EXAMINATION: Vital Signs: Vital signs reviewed in Allscripts. Please see vitals tab for details. CYSTOSCOPY: Patient was prepped and draped sterilely. Lidocaine jelly was inserted into the urethra. The flexible cystoscope was inserted into the urethra. The entire anterior urethra was normal. Theentire posterior urethra was normal. Once inside the bladder, it is hard to see his ureteral orifices. I am hitting the prostate a little bit. The entire bladder is normal, but when you retroflex thescope, you can see right on the prostate around the urethra is all this petechiae. There is an inflamed, red, cystic kind of lesions. There are a couple of calcifications that are growing in the mucosa. I had forgotten that he had just had external radiation. I thought maybe he had seeds and that acouple of the seeds had gone into the bladder, but he did not have brachytherapy, he just had external radiation so he has got some irritated mucosa from the radiation and then he has got a couple ofcalcifications that are starting to grow on the mucosa. I cannot see these except when the scope isretroflexed, so it is very hard to get to. LABORATORY DATA: Urinalysis today is 10-19 RBCs. 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 PLAN: I told Anurag that it is getting better, but it is certain that this is from his radiation cystitis. He has got a couple of calcifications that are forming. This is just from the irritated mucosa.Those certainly could get bigger. I cannot get at them right now so I would just leave them alone. He needs to just drink plenty of water. If his symptoms get worse, he needs to come back. If he has gross blood, he needs to come back, otherwise the plan would be to just get a KUB in a year and urinalysis to see how he is doing. If the calcifications start growing, we would probably be able to seethem on a KUB, but again if the symptoms get worse, we would probably just look in there, but this urgency and frequency is likely from just all of this inflammation and this acute hemorrhagic cystitis episode that he had. Moon Maloney M.D./la-15 cc: Caesy Berry II, D.OWilliam/[facility] Electronically signed by:Moon Maloney M.D. Jul 27 2018 9:15AM CLINIC CLERK * Moon Maloney MD - 06/23/2018 12:00 AM CST UROLOGY CRISTIAN BLEDSOE : [id number] 06/23/2018 SUBJECTIVE: Cristian comes to see me today. He said all of a sudden one Wednesday morning he woke up and he had terrible urgency, frequency. He said that it happened very quickly. It was about 2 1/2 weeks ago. I do see that a urine culture was done on June 13, 2018 and that was negative. He went from getting up twice at night and now he gets up five or six times at night. He is voiding almost every hour. He says that it is painful to get started to void. He is not seeing any blood. He has not had any flank pain but it just happened very quickly. It was a sudden onset. He has had a history of stones which when he told me that then obviously we need to rule that out. He did have radiation for prostate cancer. He completed that in February 2017. He got short-term ADT. He is not on any HEAD OF PARTNER DEVELOPMENT. His most recent PSA was 0.051 so that is excellent. Again what is interesting with this is that it happened all of a sudden. See the EMR. PENICILLIN, SULFA. SURGICAL HISTORY: Colonoscopy. MEDICAL HISTORY: He has a history of stones. He had radiation for prostate cancer. He had prostate cancer, stones. HISTORY: He is . He quit smoking in 1978. HISTORY: Negative for any malignancies. REVIEW OF SYSTEMS: Constitutional: Negative. Positive for sinus problems. Negative. Neurologic: Negative. Negative. Negative. : Painful urination, urinary frequency. Cardiovascular: Negative. Negative. Negative. Negative. Negative. Negative. EXAMINATION: Vital Signs: Vital signs reviewed in Allscripts. Please see vitals tab for details. Vitals--See theEMR. Alert and oriented times three. Negative. Negative. Neck is supple. No cervical or supraclavicular lymphadenopathy. Clear to auscultation with good air entry. Regular rate and rhythm without anymurmurs, clicks or rubs. Back: No CVA tenderness. Abdomen: Negative. Penis is circumcised. Meatus, glans, shaft of the penis are normal. I do not seeany blood at the meatus or any concerns for meatal stenosis. We did do a bladder scan. Postvoid residual was 94. Testes are both descended without any masses, supratesticular masses or inguinal hernias. External rectal area is normal with normal rectal tone. There is a little bit of irregularity to the prostate area, but it is pretty flat for the most part. LABORATORY DATA: Again PSA is excellent at 0.051. Sudden onset of urgency, frequency. PLAN: The first thing I thought of when he told me he had a history of stones was that he could have a small stone in his distal ureter and even in the penile urethra. We are going to get a CT stone protocol and we will go from there. Moon Maloney M.D./mdh-14 cc: Dr. Kofi Navarro-[facility] Electronically signed by:Moon Maloney M.D. Jun 24 2018 12:40PM CLINIC CLERK documented in this encounter Plan of Treatment Not on file documented as of this encounter Visit Diagnoses Not on filedocumented in this encounter Care Teams Almond Paste Mixer Relationship Specialty Start Date End Date Casey Berry II, DO PCP - General 11/22/06 08/17/19 Stephani Aleman MD PCP - General Family Medicine 08/18/19 09/16/20 Bianka Loera CNP [address] [place] [phone] PCP - General Nurse Practitioner Family 09/17/2001/10 Desiree Patrick MD [address] [place] [address] PCP - General Electrophysiology 02/23/22 03/09/22 Desiree Patrick MD [address] [place] [address] 08/09/17 Farrah Nicole APRN,MIXER TENDER [address] [place] [address] 08/09/17 Bry Echevarria MD [address] [place] [phone] 08/09/17 Casey Berry II, DO 08/09/17 Shruti Vergara RN RN Registered Nurse 08/27/20 documented as of this encounter Additional Source Comments PLEASE NOTE: Replies to this message will not be received.[facility] and [facility]
--- OUTSIDE RECORDS SUMMARY | 2023-08-16 11:21 | XMS_ITS | Encounter Summary ---
Author Name Unknown Organization [facility] [employer] Address [address] [place] [address] Care Team Providers Care Cyber Forensics Analyst Name Role Phone Jamla CARLISLE DO, Robert William Primary Care Provide r Unavailable Desiree Patrick MD Unavailable Farrah Nicole APRN,SULFIDE HEAD OPERATOR Unavailable Bry Echevarria MD Unavailable Jamal CARLISLE DO, Robert William Unavailable Unav Stephani Diaz MD Primary Care Provider [phone] Shruti Vergara RN Unavailable Unavailable Bianka Loera CNP Primary Care Provider Desiree Patrick MD Primary Care P rovider Encounter Details Date Type Department Care Team Description 12/31/2016 HIM Car Dryer [facility] [address] [address] Gil Solares MD Social History Tobacco Use Types Packs/Day Years Used Date Smoking Tobacco: Former Cigarettes 1 18 Q uit: 1978 Alcohol Use Standard Drinks/Week Comments Yes 2 [...] you have serious difficulty h earing? Yes 10/17/2016 Are you blind or do you have serious difficulty seeing, even when wearing glasses? No 10/17/2016 Do you have serious difficul ty walking or climbing stairs? No 10/17/2016 Do you have difficulty dressing or bathing? No 10/17/2016 Do you have difficulty doing errands alone such as visiting a doctor's office or shopping because of a physical, mental, or emotional condition? No 10/17/2016 Cognitive Status Response Date of Assessm ent Do you have trouble concentr ating, remembering, or making decisions because of a physical, mental, or emotional condition? No 10/17/2016 documented as of this encounter Procedure Notes * Gil Solares MD - 12/31/2016 12:00 AM CDTAssociated Order(s): ECHOCARDIOGRAM TRANSTHORACIC ADULT WITH OR WITHOUT CONTRAST PERFORMED BY: [employer] [place], [place] SITE: [place] INTERPRETED BY: [facility] [place], [place] TRANSTHORACIC ECHOCARDIOGRAM REPORT REFERRING DIAGNOSIS: Paroxysmal atrial fibrillation. PROCEDURE: Transthoracic, two-dimensional, and M-mode echocardiography was performed from the parasternal, apical, and subcostal windows. Simultaneous pulsed-wave, continuous wave and color flow Doppler was performed. IMAGE QUALITY: This is a technically adequate study. EKG RHYTHM: Atrial fibrillation. RESULTS Normal chamber sizes. LEFT ATRIUM: The left atrium is normal. MITRAL VALVE: There is mild mitral regurgitation. LEFT VENTRICLE: Diastology indeterminate. Left ventricular systolic function normal. Ejection fraction 60%. AORTIC VALVE: The aortic valve is mildly thickened with mild aortic regurgitation. AORTA: The aorta is normal. RIGHT ATRIUM: The right atrium is normal. TRICUSPID VALVE: There is mild tricuspid regurgitation. PA pressure normal. RIGHT VENTRICLE: The right ventricle is normal in size and function. PULMONIC VALVE: The pulmonic valve is normal. PERICARDIUM: There is no pericardial effusion. ADDITIONAL COMMENTS: The interatrial septum is intact. There is a prior echo from a stress echocardiogram done in November 2015, no significant change. CONCLUSIONS 1. Normal left ventricular systolic function. Ejection fraction 60%. Mild left ventricular hypertrophy. 2. Mild aortic regurgitation. 3. Mild mitral regurgitation. 4. Mild tricuspid regurgitation. 5. Diastology indeterminate. Rhythm atrial fibrillation. Note: This study was performed by [employer] [facility]. Only the interpretation wasperformed at the [facility] [place]. Electronically signed Gil Solares MD, [facility] Expense Clerk , 04:45 P A kmg/Doc#: [id number] cc: Adult Normal Value Adult Patient Values AORTIC VALVE Sinuses of Valsalva M < 38 mm W < 34 mm 44 Prox. Acs AO M < 35 mm W < 32 mm 38 LEFT ATRIUM M < 30-40 mm W < 27-38 47 LA VOLUME INDEX < 35 ml/m2 46 LEFT VENTRICULAR INTERNAL DIMENSION Diastole Systole M < 42-58 mm W < 38-52 43 28 INTERVENTRICULAR SEPTUM Diastole < 11 mm 14 LEFT VENTRICULAR POSTERIOR WALL Diastole < 11 mm 16 EF 60 % DOPPLER Pulmonary V: PI PS Velocity M/S mmHg Aortic V: Peak Velocity m/s LVOT cm PW m/s CW m/s KAROLINA cm2 DVI AI P1/2 T Mean Grad mmHg Peak Grad mmHg Mitral V: MR EROA cm2 Reg. Vol. ml Vena Cont cm MS Valve Area _ cm2 Mn Grad _ _mmHg Tricuspid V: TR Velocity 2.0 M/S (+RAP) mmHgpp Diastolic Fx: MV E/A MV dt 254 ms E' sept 6.04 cm/sec IVRT 113 ms E/e' 10 E' lat 9.65 cm/sec IMPRESSION: Patient height: 185 cm Patient weight: 94 kg Blood pressure: 116/81 mmHg Previous study: 11/19/15 Project Coordinator: GRG documented in this encounter Plan of Treatment Not on file documented as of this encounter Procedures Procedure Name Priority Date/Time Associated Diagnosis Comments ECHOCARDIOGRAM TRANSTHORACIC ADULT WITH OR WITHOUT CONTRAST 12/31/2016 documented in this encounter Results * ECHOCARDIOGRAM TRANSTHORACIC ADULT WITH OR WITHOUT CONTRAST (12/31/2016) Anatomical Region Laterality Modality Other 12/31/2016 Narrative Procedure Note Gil Solares MD - 12/31/2016 12:00 AM CDT PERFORMED BY: [employer] [employer] [place] SITE: [place] INTERPRETED BY: [facility] [place], [place] TRANSTHORACIC ECHOCARDIOGRAM REPORT REFERRING DIAGNOSIS: Paroxysmal atrial fibrillation. PROCEDURE: Transthoracic, two-dimensional, and M-mode echocardiographywas performed from the parasternal, apical, and subcostal windows.Simultaneous pulsed-wave, continuous wave and color flow Doppler wasperformed. IMAGE QUALITY: This is a technically adequate study. EKG RHYTHM: Atrial fibrillation. RESULTS Normal chamber sizes. LEFT ATRIUM: The left atrium is normal. MITRAL VALVE: There is mild mitral regurgitation. LEFT VENTRICLE: Diastology indeterminate. Left ventricular systolicfunction normal. Ejection fraction 60%. AORTIC VALVE: The aortic valve is mildly thickened with mild aorticregurgitation. AORTA: The aorta is normal. RIGHT ATRIUM: The right atrium is normal. TRICUSPID VALVE: There is mild tricuspid regurgitation. PA pressurenormal. RIGHT VENTRICLE: The right ventricle is normal in size and function. PULMONIC VALVE: The pulmonic valve is normal. PERICARDIUM: There is no pericardial effusion. ADDITIONAL COMMENTS: The interatrial septum is intact. There is aprior echo from a stress echocardiogram done in November 2015, no significantchange. CONCLUSIONS 1. Normal left ventricular systolic function. Ejection fraction 60%.Mild left ventricular hypertrophy. 2. Mild aortic regurgitation. 3. Mild mitral regurgitation. 4. Mild tricuspid regurgitation. 5. Diastology indeterminate. Rhythm atrial fibrillation. Note: This study was performed by [employer] for [place].Only the interpretation was performed at the [facility]. Electronically signed Gil Solares MD, [facility] Expense Clerk , 04:45 P A kmg/Doc#: [id number] cc: Adult Normal Value Adult Patient Values AORTIC VALVE Sinuses of Valsalva M < 38 mm W < 34 mm 44 Prox. Acs AO M < 35 mm W < 32 mm 38 LEFT ATRIUM M < 30-40 mm W < 27-38 47 LA VOLUME INDEX < 35 ml/m2 46 LEFT VENTRICULAR INTERNAL DIMENSION Diastole Systole M < 42-58 mm W < 38-52 43 28 INTERVENTRICULAR SEPTUM Diastole < 11 mm 14 LEFT VENTRICULAR POSTERIOR WALL Diastole < 11 mm 16 EF 60 % DOPPLER Pulmonary V: PI PS Velocity M/S mmHg Aortic V: Peak Velocity m/s LVOT cm PW m/s CW m/sAVA cm2 DVI AI P1/2 TMean Grad mmHg Peak Grad mmHg Mitral V: MR EROA cm2 Reg. Vol. ml Vena Cont cm MS Valve Area _ cm2 Mn Grad _ _mmHg Tricuspid V: TR Velocity 2.0 M/S (+RAP) mmHgpp Diastolic Fx: MV E/A MV dt 254 ms E' sept 6.04 cm/sec XELD211 ms E/e' 10 E' lat 9.65 cm/sec IMPRESSION: Patient height: 185 cm Patient weight: 94 kg Blood pressure: 116/81 mmHg Previous study: 11/19/15 Project Coordinator: HIEU Desiree NICHOLS documented in this encounter Visit Diagnoses Not on filedocumented in this encounter Care Teams Cyber Forensics Analyst Relationship Specialty Start Date End Date Casey Berry II, DO PCP - General 11/22/06 08/17/19 Stephani Aleman MD PCP - General Family Medicine 08/18/19 09/16/20 Bianka Loera, SLEEPING ROOM CLEANER [address] [place] [phone] PCP - General Nurse Practitioner Family 09/17/2001/10 Desiree Patrick MD [address] [place] [address] PCP - General Electrophysiology 02/23/22 03/09/22 Desiree Patrick MD [address] [place] [address] 08/09/17 Farrah Nicole APRN,SULFIDE HEAD OPERATOR [address] [place] [address] 08/09/17 Bry Echevarria MD [address] [phone] 08/09/17 Casey Berry II, DO 08/09/17 Shruti Vergara RN RN Registered Nurse 08/27/20 documented as of this encounter Additional Source Comments PLEASE NOTE: Replies to this message will not be received.[facility] and [facility]
--- OUTSIDE RECORDS SUMMARY | 2023-08-16 11:21 | XMS_ITS | Encounter Summary ---
Author Name Unknown Organization [employer] Address [address] [place] [address] Care Team Providers Care Chimney Builder Helper Name Role Phone Jamal CARLISLE DO, Robert William Primary Care Provide r Unavailable Desiree Patrick MD Unavailable Farrah Nicole APRN,PACKING MACHINE CAN FEEDER Unavailable Bry Echevarria MD Unavailable Jamal CARLISLE DO, Robert William Unavailable Unav Stephani Diaz MD Primary Care Provider Shruti Vergara RN Unavailable Unavailable Bianka Loera CNP Primary Care Provider Desiree Patrick MD Primary Care P rovider Encounter Details Date Type Department Care Team Description 12/01/2016 Historical Conversion [facility] Family Medicine [address] [place] [address] Moon Maloney MD Social History Tobacco Use Types Packs/Day Years Used Date Smoking Tobacco: Former Cigarettes 1 18 Q uit: 1979 Alcohol Use Standard Drinks/Week Comments Yes 2 (1 standard drink = 0.6 oz pur e alcohol) 1-2 beers daily Sex and Gender Information Value Date Recorded Sex Assigned at Not on file Gender Identity Not on file Sexual Orientation Not on file documented as of this encounter Last Filed Vital Signs Vital Sign Reading Time Taken Comments Blood Pressure 116/81 12/01/2016 12:00 AM CDT Pulse - - Temperature - - Respiratory Rate - - Oxygen Saturation - - Inhaled Oxygen Concentration - - Weight 94.3 kg (207 lb 12.5 oz) 017 12:00 AM CDT Height - - Body Mass Index 27.04 11/26/2016 12:54 PM CDT documented in this encounter Functional Status Functional [...] No 10/17/2016 documented as of this encounter Plan of Treatment Not on file documented as of this encounter Visit Diagnoses Not on filedocumented in this encounter Care Teams Chimney Builder Helper Relationship Specialty Start Date End Date Casey Berry II, DO PCP - General 11/22/06 08/17/19 Stephani Aleman MD PCP - General Family Medicine 08/18/19 09/16/20 Bianka Loera CNP [address] [place] [address] [address] [place] [phone] PCP - General Nurse Practitioner Family 09/17/2001/10 Desiree Patrick MD [address] [place] [address] PCP - General Electrophysiology 02/23/22 03/09/22 PatrickDesiree pitts MD [address] [place] [address] 08/09/17 Frarah Nicole APRN,PACKING MACHINE CAN FEEDER [address] [place] [address] 08/09/17 Bry Echevarria MD [address] [place] [address] 08/09/17 Casey Berry II, DO 08/09/17 Shruti Vergara RN RN Registered Nurse 08/27/20 documented as of this encounter Additional Source Comments PLEASE NOTE: Replies to this message will not be received.[facility] and [facility]
--- OUTSIDE RECORDS SUMMARY | 2023-08-16 11:21 | XMS_ITS | Encounter Summary ---
Author Name Unknown Organization [employer] Address [address] [place] [address] Care Team Providers Care Ward Attendant Name Role Phone Jamal CARLISLE DO, Robert William Primary Care Provide r Unavailable Desiree Patrick MD Unavailable Farrah Nicole APRN,DEVELOPMENT EDITOR Unavailable Bry Echevarria MD Unavailable Jamal CARLISLE DO, Robert William Unavailable Unav xiable Stephani Aleman MD Primary Care Provider Shruti Vergara RN Unavailable Unavailable Bianka Loera CNP Primary Care Provider [phone] Desiree Patrick MD Primary Care P rovider Encounter Details Date Type Department Care Team Description 10/17/2016 Historical Conversion [facility] Family Medicine [address] [place] [address] Social History Tobacco Use Types Packs/Day Years Used Date Smoking Tobacco: Former Cigarettes Q uit: 1979 Alcohol Use Standard Drinks/Week [...] deaf or do you have serious difficulty hearing? Yes-slightly MATCH-E-BE-NASH-SHE-WISH BAND 10/17/2016 Are you blind or do you have serious difficulty seeing, even when wearing glasses? No 10/17/2016 Do you have serious difficul ty walking or climbing stairs? No 10/17/2016 Do you have difficulty dressing or bathing? No 10/17/2016 Do you have difficulty doing errands alone such as visiting a doctor's office or shopping because of a physical, mental, or emotional condition? No 017 Cognitive Status Response Date of Assessm ent Do you have trouble concentr ating, remembering, or making decisions because of a physical, mental, or emotional condition? No 10/17/2016 documented as of this encounter Nursing Notes * [facility], GENERICPROVIDER - 10/17/2016 12:00 AM CDT Rohan presented to Urgent Care with complaint of feeling like his heart is racing, he can feel it pounding and a tighness in his chest occurs when this happens. He was seen at [facility] 10 days ago for an episode similar. Per patient, his heart rate last night was in the 140's, he took his Metoprolol (multiple doses) and that helped a little with the racing pulse. Patient states he has a history of Atrial Fibrillation, paroxysmal tachycardia, hypertension. and mild anxiety that is not managed by medication. Patient discussed with Dr Angel; per Dr Angel patient is to be evaluatedin the Emergency Room at [facility]. Patient and his elected to go by private car with patients driving. Electronically signed by:Tammy Coronado RN Oct 17 2016 2:09PM FREIGHT FORWARDER AMENDMENTS: 1. Patient declines shortness of breath, radiating neck pain, shoulderblade pain or sternal pain. Electronically signed by:Tammy Coronado RN Oct 17 2016 2:14PM FREIGHT FORWARDER documented in this encounter Plan of Treatment Not on file documented as of this encounter Visit Diagnoses Not on filedocumented in this encounter Care Teams Ward Attendant Relationship Specialty Start Date End Date Casey Berry II, DO PCP - General 11/22/06 08/17/19 Stephani Aleman MD PCP - General Family Medicine 08/18/19 09/16/20 Bianka Loera, PROCUREMENT MANAGER [address] [place] [address] PCP - General Nurse Practitioner Family 09/17/2001/10 Desiree Patrick MD [address] [place] [address] PCP - General Electrophysiology 02/23/22 03/09/22 Desiree Patrick MD [address] [place] [address] 08/09/17 Farrah Nicole APRN,DEVELOPMENT EDITOR [address] [place] [address] 08/09/17 Bry Echevarria MD [address] [place] [phone] 08/09/17 Casey Berry II, DO 08/09/17 Shruti Vergara, RN RN Registered Nurse 08/27/20 documented as of this encounter Additional Source Comments PLEASE NOTE: Replies to this message will not be received.[facility] and [facility]
--- OUTSIDE RECORDS SUMMARY | 2023-08-16 11:21 | XMS_ITS | Encounter Summary ---
Author Name Unknown Organization [facility] Address [address] [place] [address] Care Team Providers Care Proof Technician Helper Name Role Phone Jamal CARLISLE DO, Robert William Primary Care Provide r Unavailable Desiree Patrick MD Unavailable Farrah Nicole APRN,TENNIS BALL COVER CEMENTER Unavailable Bry Echevarria MD Unavailable [phone] Jamal CARLISLE DO, Robert William Unavailable Unav Stephani Diaz MD Primary Care Provider Shruti Vergara RN Unavailable Unavailable Bianka Loera CNP Primary Care Provider Desiree Patrick MD Primary Care P rovider Encounter Details Date Type Department Care Team Description 03/30/2017 Historical Conversion [facility] Family Medicine [address] [facility] [place], [place] [id number] Desiree Rubi PAC [address] [place] [address] Social History Tobacco Use Types [...] Sign Reading Time Taken Comments Blood Pressure 98/60 03/30/2017 12:00 AM CDT Pulse - - Temperature - - Respiratory Rate - - Oxygen Saturation - - Inhaled Oxygen Concentration - - Weight 95 kg (209 lb 7 oz) 03/30/2017 12:00 AM C DT Height - - Body Mass Index 27.25 02/01/2017 10:56 AM CDT documented in this encounter Functional Status [...] on filedocumented in this encounter Care Teams Proof Technician Helper Relationship Specialty Start Date End Date Casey Berry II, DO PCP - General 11/22/06 08/17/19 Stephani Aleman MD PCP - General Family Medicine 08/18/19 09/16/20 Bianka Loera CNP [address] [facility] [address] [place] [address] PCP - General Nurse Practitioner Family 09/17/2001/10 Desiree Patrick MD [address] [place] [phone] PCP - General Electrophysiology 02/23/22 03/09/22 Desiree Patrick MD [address] [place] [address] 08/09/17 Farrah Nicole APRN,TENNIS BALL COVER CEMENTER [address] [place] [phone] 08/09/17 Bry Echevarria MD [address] [place] [phone] 08/09/17 Casey Berry II, DO 08/09/17 Shruti Vergara RN RN Registered Nurse 08/27/20 documented as of this encounter Additional Source Comments PLEASE NOTE: Replies to this message will not be received.[facility]
--- OUTSIDE RECORDS SUMMARY | 2023-08-16 11:21 | XMS_ITS | Encounter Summary ---
Author Name Unknown Organization [facility] Address [address] [place] [address] Care Team Providers Care Blood Bank Technologist Name Role Phone Jamal CARLISLE DO, Robert William Primary Care Provide r Unavailable Desiree Patrick MD Unavailable Farrah Nicole APRN,GAS LEAK INSPECTOR Unavailable Bry Echevarria MD Unavailable Jamal CARLISLE DO, Robert William Unavailable Unav Stephani Diaz MD Primary Care Provider Shruti Vergara RN Unavailable Unavailable Bianka Loera CNP Primary Care Provider [phone] Desiree Patrick MD Primary Care P rovider Encounter Details Date Type Department Care Team Description 10/21/2016 Historical Conversion [facility] Family Medicine [address] [place] [id number] Social History Tobacco Use Types Packs/Day Years [...] Sign Reading Time Taken Comments Blood Pressure 92/62 10/21/2016 12:00 AM CDT Pulse - - Temperature - - Respiratory Rate - - Oxygen Saturation - - Inhaled Oxygen Concentration - - Weight 94.9 kg (209 lb 3.5 oz) 10/21/2016 12:00 AM CDT Height - - Body Mass Index 27.6 10/17/2016 9:04 PM CDT documented in this encounter Functional [...] on filedocumented in this encounter Care Teams Blood Bank Technologist Relationship Specialty Start Date End Date Casey Berry II, DO PCP - General 11/22/06 08/17/19 Stephani Aleman MD PCP - General Family Medicine 08/18/19 09/16/20 Bianka Loera CNP [address] [place] [phone] PCP - General Nurse Practitioner Family 09/17/2001/10 [place] [address] [place] [phone] PCP - General Electrophysiology 02/23/22 03/09/22 Desiree Patrick MD [address] [place] [address] 08/09/17 Farrah Nicole APRN,GAS LEAK INSPECTOR [address] [place] [address] 08/09/17 Bry Echevarria MD [address] [place] [address] [place] [address] 08/09/17 Casey Berry II, DO 08/09/17 Shruti Vergara RN RN Registered Nurse 08/27/20 documented as of this encounter Additional Source Comments PLEASE NOTE: Replies to this message will not be received.[facility]
--- OUTSIDE RECORDS SUMMARY | 2023-08-16 11:21 | XMS_ITS | Encounter Summary ---
Author Name Unknown Organization [facility] Address [address] [place] [address] Care Team Providers Care Boiler/Chiller Operator Name Role Phone Jamal CARLISLE DO, Robert William Primary Care Provide r Unavailable Desiree Patrick MD Unavailable Fararh Nicole APRN,MANAGER WAREHOUSE Unavailable Bry Echevarria MD Unavailable Jamal CARLISLE DO, Robert William Unavailable Unav Stephani Diaz MD Primary Care Provider Shruti Vergara RN Unavailable Unavailable Bianka Loera CNP Primary Care Provider [phone] Desiree Patrick MD Primary Care P rovider Encounter Details Date Type Department Care Team Description 12/31/2016 Historical Conversion [facility] Family Medicine [address] [facility] [place], [place] [id number] Desiree Rubi PAC [address] [place] [address] Social History Tobacco Use Types [...] No 10/17/2016 documented as of this encounter Progress Notes * Desiree Rubi - 08/31/2017 12:00 AM CST UROLOGY CRISTIAN BLEDSOE : 1945 HX: [id number] DOS: 08/31/2017 HISTORY OF PRESENT ILLNESS: Anurag is a 71-year-old gentleman who presents to the Urology clinic today. He previously had rubber nodularity on both sides of the prostate. He had a PSA velocitychange and his PCA3 test came back positive. A biopsy October 2016 showed a Curt 6 prostate cancerat the left base of the prostate involving 2% of the specimen. He also had Curt 7 cancer at the left mid-prostate involving 5% of the tissue, the right mid-prostate had Spivey 7 cancer again involving 20% of the tissue in that area. Also at the right apex he had Curt 7 cancer involving 5%. He was treated with Lupron for four months. He completed external radiation; that was completed March 11 and the patient is here for follow-up visit. He had his PSA completed today; that was 0.054. In April it was 0.039 so just a little slight change but still a good low PSA and his testosteronewe checked to see where he was at with the effects of Lupron and his testosterone today is 219, normal is 193 to 740. He said his hot flashes have resolved so he is doing better from that standpoint as well. His UA today is normal and clear. June 24 he had cardioversion. He is on Tikosyn and in the past when we were looking at thingswith Lupron and interactions with Tikosyn there is an unfavorable interaction between the two. But he has been off of his Lupron for a little while now. He sees Dr. Berry next week for follow up. As far as urinating is concerned, he used to have some frequency but now that is improved. He has not had as much urgency, no incontinence. He was on some tamsulosin and he is no longer needing the medicine; he has that on hold. He voids one time at night. His stream is good. He is not straining to void. He has a steady stream. No gross hematuria or dysuria. No bladder or kidney infections and no history of any stones. MEDICATIONS: Listed in the EMR. ALLERGIES: PENICILLIN AND SULFA. OBJECTIVE: Constitutional: Vitals reviewed in Allscripts. Please see vitals tab for details. General: Patient is in no acute distress. Alert and oriented. Rectal: I did go ahead and check his prostate since I have not done so far that I have been seeing him. The right side of his prostate is soft and smooth, the same on the left side soft and smooth. Mane not feel anything alarming on his exam. LABORATORY DATA: See my notes up above. ASSESSMENT: 1. 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 His radiation finished March 11, 2017. He was on Lupron for a total of four months and was seeing cardiology for his heart irregularity and A-fib. He is currently on Tikosyn and had cardioversion in June. There was an interaction between Lupron and the Tikosyn so he is now off of the Lupron. Hehas been off of it for a while. The patient has, so far, been doing well. His urinating, I think, is actually improved the further that he is out from radiation so that is going great. His PSA, I think, may bobble just a little bit so we will watch that. PLAN: He is seeing Dr. Winslow in November for a follow up and I will see him in February 2018 with a UA kavya PSA. If he has any questions or concerns in the meantime, he is instructed to contact the office. I spent 30 minutes total time with the patient, over 50% was counseling and coordination of care inregards to the above issues. Mare Rubi P.A.-C./lb-22 Electronically signed by:Desiree Rubi PA-C Sep 02 2017 5:01PM RADIOACTIVE WASTE DISPOSAL DISPATCHER * Desiree Rubi - 03/30/2017 12:00 AM CDT UROLOGY CRISTIAN BLEDSOE : 1945 HX: [id number] DOS: 03/30/2017 HISTORY OF PRESENT ILLNESS: 71-year-old male who presents to the Urology clinic today. The patient was previously noted to have a rubbery nodularity on both sides of the prostate. He had PSA velocity change. In August he had a PCA3 test that came back positive. He had a biopsy October 2016. Pathology showed a Curt 6 prostate cancer at the left base of the prostate involving 2% of thespecimen. He had a Curt 7 cancer at the left mid prostate involving less than 5% of the tissue. The right mid prostate he had Spivey 7 cancer involving 20% of the tissue in that area. [facility] was a Curt 7 cancer involving 5% of the specimen. He had four months of Lupron ther apy. He completed external radiation two to three weeks ago. The patient is here for a follow up visit. We did four months of Lupron therapy. Eventually he may be getting a trial of a cardiac medication and there was some interactions with that medicine. He will not need any more Lupron at this point. His last Lupron injection was December 31. He does get some hot flashes. He does get some fatigue and is not sure if that is from Lupron or radiation or even some of the cardiac things he has been going through. These medicines for his heart have been regulating his heart rate. He had been on some Flomax, stopped it four to six nights ago. He thought it made him feel lightheaded so he is weaning off of that. He voids every one to two hours through the day. He does get some urgency. It is gettingbetter. He voids twice during the night, sometimes four to six times at night. He recently got a BiPAP machine. He is getting to used to that as well. His stream is good. He has a steady stream. He is trying not to strain to urinate or anything. We will check a bladder scan to see how he is emptying. No dysuria or gross hematuria. No bladder or kidney infections. No history of any stones. MEDICATIONS: See EMR. ALLERGIES: Penicillin, Sulfa. OBJECTIVE: General: Patient is in no acute distress. Alert and oriented. Constitutional: Vitals recorded in allscripts. See vitals tab for details. LABORATORY DATA: Urine showed trace of ketones, but otherwise is normal. PSA pending. In December it was 3.96. In November it was 6.4. Bladder scan today is 0 cc. ASSESSMENT: 1. Status post EBRT treatment. He has adenocarcinoma of the prostate. Spivey 7 cancer. He had beenon Lupron for a total of four months. We did the four month course as patient has been seeing Cardiology for some heart irregularity. They are contemplating starting Tikosyn eventually. There was an interaction between Lupron and Tikosyn. He is finished with Lupron at this point. We will follow the PSA. He has an appointment with Dr. Winslow May 12 for his next PSA. PLAN: I will see him in August with a PSA, UA, ERIN and will check a total testosterone level and see if the effects of Lupron have worn off. If he has urinary troubles in the future we can contemplate trying some Uroxatral. He wants to wean off of the Flomax and try his BiPAP machine. Mare Rubi P.A.-C./- cc: Dr. Moon Maloney [facility] Radha Winslow [facility] Radiation Therapy Dept Dr. Casey Berry [facility] Radha Electronically signed by:Desiree Rubi PA-C Apr 02 2017 1:20PM RADIOACTIVE WASTE DISPOSAL DISPATCHER * Desiree Rubi - 12/31/2016 12:00 AM CDT UROLOGY CRISTIAN LADI : 1945 HX: [id number] DOS: 12/31/2016 HISTORY OF PRESENT ILLNESS: 71-year-old male who presents to the Urology clinic today. Hehad a velocity change with his PSA. On his prostate exam he had a rubbery nodularity on both sides.It was a symmetrical prostate. His PSA was monitored for a little while. In August he had a RAIMANN MACHINE OPERATOR 3test and that came back positive. He was brought back for a prostate biopsy October 23, 2016. His pathology showed Spivey 6 cancer at the left base of the prostate involving 2% of the specimen. He hadGleason 7 cancer at the left mid prostate involving less than 5% of the tissue. The right mid prostate he had a Curt 7 cancer involving 20% of the specimen in that area. The right apex had Gleason7 cancer involving 5% of the specimen. He talked to Dr. Maloney about treatment options. He has already visited with Dr. Winslow to start external radiation. He will be getting simulation done January 06 and start radiation January 18. He will have radiation for about eight weeks. He had a one month Lupron injection. He thinks he had one hot flash. He is a little bit fatigued from the medicine. No frequency, urgency or incontinence. He voids twice during the night. His stream is normal. He is not straining to void. He has a steady stream. No gross hematuria or dysuria. No bladder or kidney infections. No history of stones. No family history of prostate cancer. The patient does have irregular heart rate. He is on Warfarin. He has been working with cardiology. After his cancer treatment they will sort some things out for his heart. MEDICATIONS: See EMR. ALLERGIES: Penicillin, Sulfa. OBJECTIVE: General: Patient is in no acute distress. Alert and oriented. Constitutional: Vitals recorded in allscripts. See vitals tab for details. LABORATORY DATA: PSA is 3.9. May it was 6.4. It has come down with the Lupron. UA today is normal. ASSESSMENT: 1. Spivey 7 adenocarcinoma of the prostate. He will be starting external radiation. He is due for Lupron so we will go ahead and give the three month Lupron injection. PLAN: I will see him back in three months to see Dr. Maloney. I am not sure how long they want him onLupron. In three months he will have a UA, PSA, and possible Lupron injection but it depends on how long she wants him on the Lupron. Spent 30 minutes total time with patient over 50% was counseling and coordination of care in regards to prostate cancer. Mare Rubi P.A.-C./anna 28 cc: Dr. Moon Maloney [facility] Radha Winslow [facility] Dr. Casey Berry [facility] Radha Electronically signed by:Desiree Rubi PA-C Jan 06 2017 4:31PM RADIOACTIVE WASTE DISPOSAL DISPATCHER Author documented in this encounter Plan of Treatment Not on file documented as of this encounter Visit Diagnoses Not on filedocumented in this encounter Care Teams Boiler/Chiller Operator Relationship Specialty Start Date End Date Casey Berry II, DO PCP - General 11/22/06 08/17/19 Stephani Aleman MD PCP - General Family Medicine 08/18/19 09/16/20 Bianka Loera PRECISION AGRONOMIST [address] [place] [phone] PCP - General Nurse Practitioner Family 09/17/2001/10 Desiree Patrick MD [address] [place] [address] PCP - General Electrophysiology 02/23/22 03/09/22 Desiree Patrick MD [address] [place] [address] 08/09/17 Farrah Nicole APRN,MANAGER WAREHOUSE [address] [place] [address] 08/09/17 Bry Echevarria MD [address] [place] [phone] 08/09/17 Casey Berry II, DO 08/09/17 Shruti Vergara RN RN Registered Nurse 08/27/20 documented as of this encounter Additional Source Comments PLEASE NOTE: Replies to this message will not be received.[facility]
--- OUTSIDE RECORDS SUMMARY | 2023-08-16 11:21 | XMS_ITS | Encounter Summary ---
Author Name Unknown Organization [employer] Address [address] [place] [address] Care Team Providers Care Agent Broker Name Role Phone Jamal CARLISLE DO, Robert William Primary Care Provide r Unavailable Desiree Patrick MD Unavailable Farrah Nicole APRN,LOBSTER CATCHER Unavailable Bry Echevarria MD Unavailable Jamal CARLISLE DO, Robert William Unavailable Unav xiable Stephani Aleman MD Primary Care Provider [phone] Shruti Vergara RN Unavailable Unavailable Bianka Loera CNP Primary Care Provider Desiree Patrick MD Primary Care P rovider Encounter Details Date Type Department Care Team Description 02/03/2017 Historical Conversion [facility] Family Medicine [address] [place] [id number] Social History Tobacco Use Types Packs/Day Years [...] as of this encounter Procedure Notes * [facility] 01[facility]05/2018 12:00 AM CDTAssociated Order(s): ANTICOAGULATION Anticoagulation Clinic [facility] Name: CRISTIAN BLEDSOE : 1945 DOS: 01/05/2018 Cristian is a patient of Dr. Berry. He is here today for anticoagulation assessment and INR check for adiagnosis of atrial fibrillation. Patient states that he has been feeling well. He denies any medication changes since his last INR check. Patient reports that he continues to have an increase in his vegetable intake. INR tested today is therapeutic at 2.3 with the recommended range of 2.0 to 3.0. Patient will continue Coumadin at 7.5 mg on Wednesdays and 5 mg all other days with an INR recheck in one month, sooner for any changes. Patient verbalizes understanding. Electronically signed by:Tiffani Carrero RN Jan 05 2018 12:21PM WORKPLACE RELATIONS ADVISER * [facility] - 12/21/2017 12:00 AM CDTAssociated Order(s): ANTICOAGULATION Anticoagulation Clinic [facility] Name: CRISTIAN BLEDSOE : 1945 DOS: 12/21/2017 Cristian is a patient of Dr. Berry. He is here today for anticoagulation assessment and INR check for adiagnosis of atrial fibrillation. Patient states that he has been feeling well. He denies any medication changes since his last INR check. Patient reports that he has had an increase in his vegetable intake. INR tested today is 1.7 with the recommended range of 2.0 to 3.0. He will adjust Coumadin to 7.5 mg on Wednesdays and 5 mg all other days with an INR recheck in two weeks.Patient verbalizes understanding. Electronically signed by:Tiffani Carrero RN Dec 21 2017 8:31AM WORKPLACE RELATIONS ADVISER * [facility] - 11/24/2017 12:00 AM CDTAssociated Order(s): ANTICOAGULATION Anticoagulation [facility] Name: CRISTIAN BLEDSOE : 1945 DOS: 11/24/2017 Cristian is a patient of Dr. Berry. He is here today for anticoagulation assessment and INR check for adiagnosis of atrial fibrillation. Patient states that he has been feeling well. He denies any medication changes since his last INR check. INR tested today is therapeutic at 2.3 with the recommended range of 2.0 to 3.0. He will continue Coumadin at 5 mg daily with an INR recheckin one month, sooner for any changes. Patient verbalizes understanding. Electronically signed by:Tiffani Carrero RN Nov 24 2017 2:41PM WORKPLACE RELATIONS ADVISER * [facility] - 10/27/2017 12:00 AM CDTAssociated Order(s): ANTICOAGULATION Anticoagulation Clinic [facility] Name: CRISTIAN BLEDSOE : 1945 DOS: 10/27/2017 Cristian is a patient of Dr. Berry. He is here today for anticoagulation assessment and INR check for adiagnosis of atrial fibrillation. Patient states that he has not been feeling well and has been suffering with spinal stenosis. He reports that he has been taking soma for a muscle relaxer. He also reports that his tow operator has changed his medications. Patient stales that he is no longer takingany rate control medications. INR tested today is therapeutic at 2.0 with the recommended range of 2.0 to 3.0. He will continue Coumadin at 5 mg daily with an INR recheck in one month, sooner for anychanges. Patient verbalizes understanding. Electronically signed by:Tiffani Carrero RN Oct 28 2017 7:02AM WORKPLACE RELATIONS ADVISER * [facility] - 09/29/2017 12:00 AM CDTAssociated Order(s): ANTICOAGULATION Anticoagulation Clinic [facility] Name: CRISTIAN BLEDSOE : 1945 DOS: 09/29/2017 rCistian is a patient of Dr. Berry. He is here today for anticoagulation assessment and INR check for adiagnosis of atrial fibrillation. Patient states that he is feeling well. He denies any changes in medication. Patient reports that he continues to experience bradycardia and is working with his tow operator to manage his beta blockers slowly. INR tested today is therapeutic at 2.1 with the recommended range of 2.0 to 3.0. He will continue Coumadin at 5 mg daily with an INR recheck in one month, sooner for any changes. Patient verbalizes understanding. Electronically signed by:Tiffani Carrero RN Sep 29 2017 2:09PM WORKPLACE RELATIONS ADVISER * [facility] - 09/15/2017 12:00 AM CSTAssociated Order(s): ANTICOAGULATION Anticoagulation [facility] Name: CRISTIAN BLEDSOE : 1945 DOS: 09/15/2017 Cristian is a patient of Dr. Berry. He is here today for anticoagulation assessment and INR check for adiagnosis of atrial fibrillation. Patient states that he is feeling well. He denies any changes in medication. Patient reports that he was seen with Dr. Berry last week and he was told that he has some bradycardia with heart rates in the 40's. Patient states that Dr. Berry will converse with his tow operator to see if they should change some of his heart medications. Patient will call [facility] nurse with any updates. INR tested today is 1.9 with the recommended range of 2.0 to 3.0. He will adjust Coumadin to 5 mg daily with an INR recheck in two weeks. Patient verbalizes understanding. Electronically signed by:Tiffani Carrero RN Sep 15 2017 11:42AM WORKPLACE RELATIONS ADVISER * [facility] - 08/18/2017 12:00 AM CSTAssociated Order(s): ANTICOAGULATION Anticoagulation Clinic [facility] Name: CRISTIAN BLEDSOE : 1945 DOS: 08/18/2017 Cristian is a patient of Dr. Berry. He is here today for anticoagulation assessment and INR check for adiagnosis of atrial fibrillation. Patient states that he is feeling well. He denies any changes in medication. INR tested today is therapeutic at 2.5 with the recommended range of 2.0 to 3.0. He willcontinue his current Coumadin dose of 2.5 mg on Wednesdays and 5 mg all other days of the week. INRrecheck in one month, sooner for any changes. Patient verbalizes understanding. Electronically signed by:Tiffani Carrero RN Aug 18 2017 6:00PM WORKPLACE RELATIONS ADVISER * [facility] - 07/09/2017 12:00 AM CSTAssociated Order(s): ANTICOAGULATION Anticoagulation Clinic [facility] Name: CRISTIAN BLEDSOE : 1945 DOS: 07/09/2017 Cristian is a patient of Dr. Berry. He is here today for anticoagulation assessment and INR check for adiagnosis of atrial fibrillation. Patient states that he is feeling well. He denies any changes in medication and states that he continues to take dofetilide 250 mcg twice daily. INR tested today is therapeutic at 2.7 with the recommended range of 2.0 to 3.0. He will continue his current Coumadin dose of 2.5 mg on Wednesdays and 5 mg all other days of the week. INR recheck in one month, sooner for any changes. Patient verbalizes understanding. Electronically signed by:Tiffani Carrero RN Jul 09 2017 11:28AM WORKPLACE RELATIONS ADVISER * [facility] - 06/16/2017 12:00 AM CSTAssociated Order(s): ANTICOAGULATION Anticoagulation Clinic [facility] Name: CRISTIAN BLEDSOE : 1945 DOS: 06/16/2017 This is a patient of Dr. Berry. He is here today for an anticoagulation assessment and INR check fora diagnosis of atrial fibrillation. He states that he has been feeling well. Patient denies any recent medication changes. He reports that he needs weekly INR checks per Dr. Patrick at [facility] in preparation for taking dofetilide and a planned cardioversion on June 21. Patient states that he will be hospitalized for this procedure for close cardiac monitoring. Today he reports that he has been feeling well. Patient denies any medication changes. INR tested today is therapeutic at 2.9 with the recommended range of 2.0 to 3.0. He will continue Coumadin at 2.5 mg on Wednesdays and 5 mg all other days. Patient will recheck INR per his hospital discharge instructions. He is encouraged to contact [facility] nurse with any questions. Patient verbalizes understanding. INR results from today are faxed to Dr. Patrick with a note of current INR and Coumadin dosing. Electronically signed by:Tiffani Carrero RN Jun 16 2017 4:18PM WORKPLACE RELATIONS ADVISER * [facility] - 06/09/2017 12:00 AM CSTAssociated Order(s): ANTICOAGULATION Anticoagulation Clinic [facility] Name: CRISTIAN BLEDSOE : 1945 DOS: 06/09/2017 This is a patient of Dr. Berry. He is here today for an anticoagulation assessment and INR check fora diagnosis of atrial fibrillation. He states that he has been feeling well. Patient denies any recent medication changes. He reports that he needs weekly INR checks per Dr. Patrick at [facility] in preparation for taking dofetilide and a planned cardioversion on June 21. Patient states that he will be hospitalized for this procedure for close cardiac monitoring. Again, he reports that he has been feeling well. Patient denies any medication changes. INR tested today is therapeutic at 2.6 with the recommended range of 2.0 to 3.0. He will continue Coumadin at 2.5 mg on Wednesdays and 5 mg all other days with an INR recheck in one week. Patient verbalized understanding. INR results from today are faxed to Dr. Patrick with a note of current INR and Coumadin dosing. Electronically signed by:Tiffani Carrero RN Jun 09 2017 3:40PM WORKPLACE RELATIONS ADVISER * [facility] - 06/02/2017 12:00 AM CSTAssociated Order(s): ANTICOAGULATION Anticoagulation Clinic [facility] Name: CRISTIAN BLEDSOE : 1945 DOS: 06/02/2017 This is a patient of Dr. Berry. He is here today for an anticoagulation assessment and INR check fora diagnosis of atrial fibrillation. He states that he has been feeling well. Patient denies any recent medication changes. He reports that he will need weekly INR checks per Dr. Patrick at [facility] in preparation for taking dofetilide and a planned cardioversion in one month. Patient states that he will be hospitalized for this procedure for close cardiac monitoring. He reports that he has been feeling well. Patient denies any medication changes. INR tested today is therapeuticat 2.5 with the recommended range of 2.0 to 3.0. He will continue Coumadin at 2.5 mg on Wednesdays and 5 mg all other days with an INR recheck in one week. Patient verbalized understanding. INR results from today are faxed to Dr. Patrick with a note of <amendment #1> Electronically signed by:Tiffani Carrero RN Jun 02 2017 9:39AM WORKPLACE RELATIONS ADVISER AMENDMENTS: 1. current INR and Coumadin dosing. Electronically signed by:Tiffani Carrero RN Jun 09 2017 3:41PM WORKPLACE RELATIONS ADVISER * [facility] - 05/26/2017 12:00 AM CSTAssociated Order(s): ANTICOAGULATION Anticoagulation Clinic [facility] Name: CRISTIAN BLEDSOE : 1945 DOS: 05/26/2017 This is a patient of Dr. Berry. He is here today for an anticoagulation assessment and INR check fora diagnosis of atrial fibrillation. He states that he has been feeling well. Patient denies any recent medication changes. He reports that he will need weekly INR checks per Dr. Patrick at [facility] in preparation for taking dofetilide and a planned cardioversion in one month. Patient states that he will be hospitalized for this procedure for close cardiac monitoring. INR tested today is therapeutic at 2.1 with the recommended range of 2.0 to 3.0. Patient reports that he realized that he doubled up his Coumadin one day last week when he set up his pills. He mistakenly put in two Coumadin rather than one Coumadin and one beta raya. Patient will adjust Coumadin back to his regular dose of 2.5 mg Wednesday and 5 mg all other days. He is scheduled to recheck in one week. Patient verbalized understanding. INR results from today are faxed to Dr. Patrick with a note of adjustment made today. Electronically signed by:Tiffani Carrero RN May 26 2017 9:42AM WORKPLACE RELATIONS ADVISER * [facility] - 05/19/2017 12:00 AM CSTAssociated Order(s): ANTICOAGULATION Anticoagulation Clinic [facility] Name: CRISTIAN BLDESOE : 1945 DOS: 05/19/2017 This is a patient of Dr. Berry. He is here today for an anticoagulation assessment and INR check fora diagnosis of atrial fibrillation. He states that he has been feeling well. Patient denies any recent medication changes. He reports that he will need weekly INR checks per Dr. Patrick at [facility] in preparation for taking dofetilide and a planned cardioversion in one month. Patient states that he will be hospitalized for this procedure for close cardiac monitoring. INR tested today is elevated at 3.7 with the recommended range of 2.0 to 3.0. Patient will adjust Coumadin with a hold today (05/19), then take 2.5 mg on Wednesday and 5 mg all other days. Patient verbalized understanding. INR results from February 03 thru today are faxed to Dr. Patrick with a note of adjustment made today. Electronically signed by:Tiffani Carrero RN May 19 2017 3:13PM WORKPLACE RELATIONS ADVISER * [facility] - 05/14/2017 12:00 AM CDTAssociated Order(s): ANTICOAGULATION Email communication received from patient today: ALLAN Vera, RN [facility] (direct phone) [phone] Per our phone conversation of yesterday afternoon, I will be having an initiation of Tikosyn (Dofetilide) at [facility] beginning on June 21. To prepare for this, my tow operator,Dr. Desiree Patrick, has requested INR lab reports demonstrating 4 to 5 weeks of INR levels between 2.5 and 3 prior to the initiation of Tikosyn. Would you please fax my INR lab reports for the month of May to Tamika, Dr. Patrick???s nurse, at [phone]) [phone]? The phone number for Dr. Patrick is [phone]. As we discussed, I will come in for INR testing each Wednesday morning at 9:30 AM to meet this requirement. Thank you, Anurag Bledsoe Electronically signed by:Tiffani Carrero RN May 14 2017 9:46AM WORKPLACE RELATIONS ADVISER * [facility] 05/10/2017 12:00 AM CDTAssociated Order(s): ANTICOAGULATION Anticoagulation Clinic [facility] Name: CRISTIAN BLEDSOE : 1945 DOS: 05/10/2017 This is a patient of Dr. Berry. He is here today for an anticoagulation assessment and INR check fora diagnosis of atrial fibrillation. He states that he has been feeling well. Patient denies any recent medication changes. He reports that he will need weekly INR checks per Dr. Patrick at [facility] in preparation for taking dofetilide and a planned cardioversion in one month. Patient states that he will be hospitalized for this procedure for close cardiac monitoring. INR tested today is therapeutic at 2.7 with the recommended range of 2.0 to 3.0. Patient will continue Coumadin at 2.5 mg on Wednesdays and 5 mg all other days with an INR recheck in one week. Patient verbalized understanding. Electronically signed by:Tiffani Carrero RN May 10 2017 3:11PM WORKPLACE RELATIONS ADVISER * [facility] - 04/06/2017 12:00 AM CDTAssociated Order(s): ANTICOAGULATION Anticoagulation Clinic [facility] Name: CRISTIAN BLEDSOE : 1945 DOS: 04/06/2017 This is a patient of Dr. Berry. He is here today for an anticoagulation assessment and INR check fora diagnosis of atrial fibrillation. He states that he has been feeling well but has been experiencing fatigue. He reports that he is completed with his radiation treatments. He states that he has an appointment with Dr. Berry today. INR tested today is therapeutic at 2.6 with the recommended range of 2.0 to 3.0. Patient will continue Coumadin at 2.5 mg on Wednesdays and 5 mg all other days with anINR recheck in one month, sooner for any changes. Patient verbalized understanding. Electronically signed by:Tiffani Carrero RN Apr 06 2017 12:37PM WORKPLACE RELATIONS ADVISER * [facility] - 03/03/2017 12:00 AM CDTAssociated Order(s): ANTICOAGULATION Anticoagulation Clinic [facility] Name: CRISTIAN BLEDSOE : 1945 DOS: 03/03/2017 This is a patient of Dr. Berry. He is here today for an anticoagulation assessment and INR check fora diagnosis of atrial fibrillation. He states that he has been feeling well but has been experiencing fatigue. He reports that he is almost completed with his radiation treatments and will have a follow up appointment with Dr. Maloney on . INR tested today is therapeutic at 2.3 with the recommended range of 2.0 to 3.0. Patient will continue Coumadin at 2.5 mg on Wednesdays and 5 mg all other days with an INR recheck in one month, sooner for any changes. He will have INR checked in the [place] lab prior to his appointment with Dr. Maloney. Patient verbalized understanding. Electronically signed by:Tiffani Carrero RN Mar 03 2017 12:02PM WORKPLACE RELATIONS ADVISER * [facility] - 02/03/2017 12:00 AM CDTAssociated Order(s): ANTICOAGULATION Anticoagulation Clinic [facility] Name: CRISTIAN BLEDSOE : 1945 DOS: 02/03/2017 This is a patient of Dr. Berry. He presented to lab today for an INR check for a diagnosis of atrialfibrillation. A follow up phone call was placed to the patient today. Spoke with the patient's wifeEllen. She states that the patient attends his radiation treatment today. She reports that the patient has been feeling well and denies any changes in medications. INR tested today is 2.4 with the recommended range of 2.0 to 3.0. Patient will continue Coumadin at 2.5 mg on Wednesdays and 5 mg all other days with an INR recheck in one month, sooner for any changes. Patient's verbalizes understanding and states that she will communicate this to the patient when he returns home. Electronically signed by:Tiffani Carrero RN Feb 03 2017 10:11AM WORKPLACE RELATIONS ADVISER documented in this encounter Plan of Treatment Not on file documented as of this encounter Procedures Procedure Name Priority Date/Time Associated Diagnosis Comments ANTICOAGULATION 01/05/2018 ANTICOAGULATION 12/21/2017 ANTICOAGULATION 11/24/2017 ANTICOAGULATION 10/27/2017 ANTICOAGULATION 09/29/2017 ANTICOAGULATION 09/15/2017 ANTICOAGULATION 08/18/2017 ANTICOAGULATION 07/09/2017 ANTICOAGULATION 06/16/2017 ANTICOAGULATION 06/09/2017 ANTICOAGULATION 06/02/2017 ANTICOAGULATION 05/26/2017 ANTICOAGULATION 05/19/2017 ANTICOAGULATION 05/14/2017 ANTICOAGULATION 05/10/2017 ANTICOAGULATION 04/06/2017 ANTICOAGULATION 03/03/2017 ANTICOAGULATION 02/03/2017 documented in this encounter Results * ANTICOAGULATION (01/05/2018) Narrative Procedure Note [facility] - 01/05/2018 12:00 AM CDT Anticoagulation [facility] Name: CRISTIAN BLEDSOE : 1945 DOS: 01/05/2018 Cristian is a patient of Dr. Berry. He is here today for anticoagulationassessment and INR check for a diagnosis of atrial fibrillation. Patientstates that he has been feeling well. He denies any medication changes since his last INR check. Patientreports that he continues to have an increase in his vegetable intake. INRtested today is therapeutic at 2.3 with the recommended range of 2.0 to3.0. Patient will continue Coumadin at 7.5 mg on Wednesdays and 5 mg allother days with an INR recheck in one month, sooner for any changes.Patient verbalizes understanding. Electronically signed by:Tiffani Carrero RN Jan 05 2018 12:21PM WORKPLACE RELATIONS ADVISER [facility] OTHER * ANTICOAGULATION (12/21/2017) Narrative Procedure Note [facility] - 12/21/2017 12:00 AM CDT Anticoagulation [facility] Name: CRISTIAN BLEDSOE : 1945 DOS: 12/21/2017 Cristian is a patient of Dr. Berry. He is here today for anticoagulationassessment and INR check for a diagnosis of atrial fibrillation. Patientstates that he has been feeling well. He denies any medication changes since his last INR check. Patientreports that he has had an increase in his vegetable intake. INR testedtoday is 1.7 with the recommended range of 2.0 to 3.0. He will adjustCoumadin to 7.5 mg on Wednesdays and 5 mg all other days with an INRrecheck in two weeks. Patient verbalizes understanding. Electronically signed by:Tiffani Carrero RN Dec 21 2017 8:31AM WORKPLACE RELATIONS ADVISER [facility] OTHER * ANTICOAGULATION (11/24/2017) Narrative Procedure Note [facility] 11/24/2017 12:00 AM CDT Anticoagulation [facility] Name: CRISTIAN BLEDSOE : 1945 DOS: 11/24/2017 Cristian is a patient of Dr. Berry. He is here today for anticoagulationassessment and INR check for a diagnosis of atrial fibrillation. Patientstates that he has been feeling well. He denies any medication changes since his last INR check. INR testedtoday is therapeutic at 2.3 with the recommended range of 2.0 to 3.0. Hewill continue Coumadin at 5 mg daily with an INR recheck in one month,sooner for any changes. Patient verbalizes understanding. Electronically signed by:Tiffani Carrero RN Nov 24 2017 2:41PM WORKPLACE RELATIONS ADVISER [facility] OTHER * ANTICOAGULATION (10/27/2017) Narrative Procedure Note [facility] - 10/27/2017 12:00 AM CDT Anticoagulation [facility] Name: CRISTIAN BLEDSOE : 1945 DOS: 10/27/2017 Cristian is a patient of Dr. Berry. He is here today for anticoagulationassessment and INR check for a diagnosis of atrial fibrillation. Patientstates that he has not been feeling well and has been suffering withspinal stenosis. He reports that he has been taking soma for a musclerelaxer. He also reports that his tow operator has changed hismedications. Patient stales that he is no longer taking any rate controlmedications. INR tested today is therapeutic at 2.0 with the recommendedrange of 2.0 to 3.0. He will continue Coumadin at 5 mg daily with an INRrecheck in one month, sooner for any changes. Patient verbalizesunderstanding. Electronically signed by:Tiffani Carrero RN Oct 28 2017 7:02AM WORKPLACE RELATIONS ADVISER [facility] OTHER * ANTICOAGULATION (09/29/2017) Narrative Procedure Note [facility] - 09/29/2017 12:00 AM CDT Anticoagulation [facility] Name: CRISTIAN BLEDSOE : 1945 DOS: 09/29/2017 Cristian is a patient of Dr. Berry. He is here today for anticoagulationassessment and INR check for a diagnosis of atrial fibrillation. Patientstates that he is feeling well. He denies any changes in medication.Patient reports that he continues to experience bradycardia and is workingwith his tow operator to manage his beta blockers slowly. INR testedtoday is therapeutic at 2.1 with the recommended range of 2.0 to 3.0. Hewill continue Coumadin at 5 mg daily with an INR recheck in one month,sooner for any changes. Patient verbalizes understanding. Electronically signed by:Tiffani Carrero RN Sep 29 2017 2:09PM WORKPLACE RELATIONS ADVISER [facility] OTHER * ANTICOAGULATION (09/15/2017) Narrative Procedure Note [facility] - 09/15/2017 12:00 AM CST Anticoagulation Clinic [facility] Name: CRISTIAN BLEDSOE : 1945 DOS: 09/15/2017 Cristian is a patient of Dr. Berry. He is here today for anticoagulationassessment and INR check for a diagnosis of atrial fibrillation. Patientstates that he is feeling well. He denies any changes in medication.Patient reports that he was seen with Dr. Berry last week and he was toldthat he has some bradycardia with heart rates in the 40's. Patient statesthat Dr. Berry will converse with his tow operator to see if they shouldchange some of his heart medications. Patient will call [facility] nurse with anyupdates. INR tested today is 1.9 with the recommended range of 2.0 to 3.0.He will adjust Coumadin to 5 mg daily with an INR recheck in two weeks.Patient verbalizes understanding. Electronically signed by:Tiffani Carrero RN Sep 15 2017 11:42AM WORKPLACE RELATIONS ADVISER [facility] OTHER * ANTICOAGULATION (08/18/2017) Narrative [facility] 08[facility]18/2017 12:00 AM CST Anticoagulation [facility] Name: CRISTIAN BLEDSOE : 1945 DOS: 08/18/2017 Cristian is a patient of Dr. Berry. He is here today for anticoagulationassessment and INR check for a diagnosis of atrial fibrillation. Patientstates that he is feeling well. He denies any changes in medication. INRtested today is therapeutic at 2.5 with the recommended range of 2.0 to3.0. He will continue his current Coumadin dose of 2.5 mg on Wednesdaysand 5 mg all other days of the week. INR recheck in one month, sooner forany changes. Patient verbalizes understanding. Electronically signed by:Tiffani Carrero RN Aug 18 2017 6:00PM WORKPLACE RELATIONS ADVISER [facility] OTHER * ANTICOAGULATION (07/09/2017) Narrative Procedure Note [facility] - 07/09/2017 12:00 AM CST Anticoagulation [facility] Name: CRISTIAN BLEDSOE : 1945 DOS: 07/09/2017 Cristian is a patient of Dr. Berry. He is here today for anticoagulationassessment and INR check for a diagnosis of atrial fibrillation. Patientstates that he is feeling well. He denies any changes in medication andstates that he continues to take dofetilide 250 mcg twice daily. INRtested today is therapeutic at 2.7 with the recommended range of 2.0 to3.0. He will continue his current Coumadin dose of 2.5 mg on Wednesdaysand 5 mg all other days of the week. INR recheck in one month, sooner forany changes. Patient verbalizes understanding. Electronically signed by:Tiffani Carrero RN Jul 09 2017 11:28AM WORKPLACE RELATIONS ADVISER [facility] OTHER * ANTICOAGULATION (06/16/2017) Narrative Procedure Note [facility] - 06/16/2017 12:00 AM CST Anticoagulation Clinic [facility] Name: CRISTIAN BLEDSOE : 1945 DOS: 06/16/2017 This is a patient of Dr. Berry. He is here today for an anticoagulationassessment and INR check for a diagnosis of atrial fibrillation. He statesthat he has been feeling well. Patient denies any recent medicationchanges. He reports that he needs weekly INR checks per Dr. Patrick [facility] in preparation for taking dofetilide and a plannedcardioversion on June 21. Patient states that he will behospitalized for this procedure for close cardiac monitoring. Today hereports that he has been feeling well. Patient denies any medicationchanges. INR tested today is therapeutic at 2.9 with the recommended rangeof 2.0 to 3.0. He will continue Coumadin at 2.5 mg on Wednesdays and 5 mgall other days. Patient will recheck INR per his hospital dischargeinstructions. He is encouraged to contact [facility] nurse with any questions.Patient verbalizes understanding. INR results from today are faxed to Dr. Patrick with a note of currentINR and Coumadin dosing. Electronically signed by:Tiffani Carrero RN Jun 16 2017 4:18PM WORKPLACE RELATIONS ADVISER [facility] OTHER * ANTICOAGULATION (06/09/2017) Narrative Procedure Note [facility] - 06/09/2017 12:00 AM CST Anticoagulation Clinic [facility] Name: CRISTIAN BLEDSOE : 1945 DOS: 06/09/2017 This is a patient of Dr. Berry. He is here today for an anticoagulationassessment and INR check for a diagnosis of atrial fibrillation. He statesthat he has been feeling well. Patient denies any recent medicationchanges. He reports that he needs weekly INR checks per Dr. Patrick [facility] in preparation for taking dofetilide and a plannedcardioversion on June 21. Patient states that he will behospitalized for this procedure for close cardiac monitoring. Again, hereports that he has been feeling well. Patient denies any medicationchanges. INR tested today is therapeutic at 2.6 with the recommended rangeof 2.0 to 3.0. He will continue Coumadin at 2.5 mg on Wednesdays and 5 mgall other days with an INR recheck in one week. Patient verbalizedunderstanding. INR results from today are faxed to Dr. Patrick with a note of currentINR and Coumadin dosing. Electronically signed by:Tiffani Carrero RN Jun 09 2017 3:40PM WORKPLACE RELATIONS ADVISER [facility] OTHER * ANTICOAGULATION (06/02/2017) Narrative Procedure Note [facility] - 06/02/2017 12:00 AM CST Anticoagulation Clinic [facility] Name: CRISTIAN BLEDSOE : 1945 DOS: 06/02/2017 This is a patient of Dr. Berry. He is here today for an anticoagulationassessment and INR check for a diagnosis of atrial fibrillation. He statesthat he has been feeling well. Patient denies any recent medicationchanges. He reports that he will need weekly INR checks per Dr. [facility] in preparation for taking dofetilide and aplanned cardioversion in one month. Patient states that he will behospitalized for this procedure for close cardiac monitoring. He reportsthat he has been feeling well. Patient denies any medication changes. INRtested today is therapeutic at 2.5 with the recommended range of 2.0 to3.0. He will continue Coumadin at 2.5 mg on Wednesdays and 5 mg all otherdays with an INR recheck in one week. Patient verbalized understanding. INR results from today are faxed to Dr. Patrick with a note of<amendment #1> Electronically signed by:Tiffani Carrero RN Jun 02 2017 9:39AM WORKPLACE RELATIONS ADVISER AMENDMENTS: 1. current INR and Coumadin dosing. Electronically signed by:Tiffani Carrero RN Jun 09 2017 3:41PM WORKPLACE RELATIONS ADVISER [facility] OTHER * ANTICOAGULATION (05/26/2017) Narrative Procedure [facility] - 05/26/2017 12:00 AM CST Anticoagulation [facility] Name: CRISTIAN BLEDSOE : 1945 DOS: 05/26/2017 This is a patient of Dr. Berry. He is here today for an anticoagulationassessment and INR check for a diagnosis of atrial fibrillation. He statesthat he has been feeling well. Patient denies any recent medicationchanges. He reports that he will need weekly INR checks per Dr. [facility] in preparation for taking dofetilide and aplanned cardioversion in one month. Patient states that he will behospitalized for this procedure for close cardiac monitoring. INR testedtoday is therapeutic at 2.1 with the recommended range of 2.0 to 3.0.Patient reports that he realized that he doubled up his Coumadin one daylast week when he set up his pills. He mistakenly put in two Coumadinrather than one Coumadin and one beta raya. Patient will adjustCoumadin back to his regular dose of 2.5 mg Wednesday and 5 mg all other. He is scheduled to recheck in one week. Patient verbalizedunderstanding. INR results from today are faxed to Dr. Patrick with a note ofadjustment made today. Electronically signed by:Tiffani Carrero RN May 26 2017 9:42AM WORKPLACE RELATIONS ADVISER [facility] OTHER * ANTICOAGULATION (05/19/2017) Narrative [facility] - 05/19/2017 12:00 AM CST Anticoagulation [facility] Name: CRISTIAN BLEDSOE : 1945 DOS: 05/19/2017 This is a patient of Dr. Berry. He is here today for an anticoagulationassessment and INR check for a diagnosis of atrial fibrillation. He statesthat he has been feeling well. Patient denies any recent medicationchanges. He reports that he will need weekly INR checks per Dr. [facility] in preparation for taking dofetilide and aplanned cardioversion in one month. Patient states that he will behospitalized for this procedure for close cardiac monitoring. INR testedtoday is elevated at 3.7 with the recommended range of 2.0 to 3.0. Patientwill adjust Coumadin with a hold today (05/19), then take 2.5 mg on Wednesdayand 5 mg all other days. Patient verbalized understanding. INR results from February 03 thru today are faxed to Dr. aPtrick with anote of adjustment made today. Electronically signed by:Tiffani Carrero RN May 19 2017 3:13PM WORKPLACE RELATIONS ADVISER Genericprovider [facility] OTHER * ANTICOAGULATION (05/14/2017) Narrative Procedure Note [facility] - 05/14/2017 12:00 AM CDT Email communication received from patient today: ALLAN Vera, RN [facility] (direct phone) [phone] Per our phone conversation of yesterday afternoon, I will be having aninitiation of Tikosyn (Dofetilide) at [facility] beginning June 21. To prepare for this, my tow operator, Dr. Serra, has requested INR lab reports demonstrating 4 to 5 weeks ofINR levels between 2.5 and 3 prior to the initiation of Tikosyn. Would you please fax my INR lab reports for the month of May Oneil, Dr. Patrick? s nurse, at (fax) [phone]? The phone numberfor Dr. Patrick is [phone]. As we discussed, I will come in for INR testing each Wednesday morning at9:30 AM to meet this requirement. Thank you, Anurag Premapura Electronically signed by:Tiffani Carrero RN May 14 2017 9:46AM WORKPLACE RELATIONS ADVISER [facility] OTHER * ANTICOAGULATION (05/10/2017) Narrative Procedure Note [facility] - 05/10/2017 12:00 AM CDT Anticoagulation [facility] Name: CRISTIAN BLEDSOE : 1945 DOS: 05/10/2017 This is a patient of Dr. Berry. He is here today for an anticoagulationassessment and INR check for a diagnosis of atrial fibrillation. He statesthat he has been feeling well. Patient denies any recent medicationchanges. He reports that he will need weekly INR checks per Dr. [facility] in preparation for taking dofetilide and aplanned cardioversion in one month. Patient states that he will behospitalized for this procedure for close cardiac monitoring. INR testedtoday is therapeutic at 2.7 with the recommended range of 2.0 to 3.0.Patient will continue Coumadin at 2.5 mg on Wednesdays and 5 mg all other with an INR recheck in one week. Patient verbalized understanding. Electronically signed by:Tiffani Carrero RN May 10 2017 3:11PM WORKPLACE RELATIONS ADVISER [facility] OTHER * ANTICOAGULATION (04/06/2017) Narrative Procedure Note [facility] - 04/06/2017 12:00 AM CDT Anticoagulation [facility] Name: CRISTIAN BLEDSOE : 1945 DOS: 04/06/2017 This is a patient of Dr. Berry. He is here today for an anticoagulationassessment and INR check for a diagnosis of atrial fibrillation. He statesthat he has been feeling well but has been experiencing fatigue. Hereports that he is completed with his radiation treatments. He states thathe has an appointment with Dr. Berry today. INR tested today istherapeutic at 2.6 with the recommended range of 2.0 to 3.0. Patient willcontinue Coumadin at 2.5 mg on Wednesdays and 5 mg all other days with anINR recheck in one month, sooner for any changes. Patient verbalizedunderstanding. Electronically signed by:Tiffani Carrero RN Apr 06 2017 12:37PM WORKPLACE RELATIONS ADVISER [facility] OTHER * ANTICOAGULATION (03/03/2017) Narrative Procedure Note [facility] - 03/03/2017 12:00 AM CDT Anticoagulation [facility] Name: CRISTIAN BLEDSOE : 1945 DOS: 03/03/2017 This is a patient of Dr. Berry. He is here today for an anticoagulationassessment and INR check for a diagnosis of atrial fibrillation. He statesthat he has been feeling well but has been experiencing fatigue. Hereports that he is almost completed with his radiation treatments and willhave a follow up appointment with Dr. Maloney on . INR testedtoday is therapeutic at 2.3 with the recommended range of 2.0 to 3.0.Patient will continue Coumadin at 2.5 mg on Wednesdays and 5 mg all otherdays with an INR recheck in one month, sooner for any changes. He willhave INR checked in the [place] lab prior to his appointment with . Patient verbalized understanding. Electronically signed by:Tiffani Carrero RN Mar 03 2017 12:02PM WORKPLACE RELATIONS ADVISER [facility] OTHER * ANTICOAGULATION (02/03/2017) Narrative Procedure Note [facility] - 02/03/2017 12:00 AM CDT Anticoagulation [facility] Name: CRISTIAN BLEDSOE : 1945 DOS: 02/03/2017 This is a patient of Dr. Berry. He presented to lab today for an INR checkfor a diagnosis of atrial fibrillation. A follow up phone call was placedto the patient today. Spoke with the patient's Flor. She states thatthe patient attends his radiation treatment today. She reports that thepatient has been feeling well and denies any changes in medications. INRtested today is 2.4 with the recommended range of 2.0 to 3.0. Patient willcontinue Coumadin at 2.5 mg on Wednesdays and 5 mg all other days with anINR recheck in one month, sooner for any changes. Patient's wifeverbalizes understanding and states that she will communicate this to thepatient when he returns home. Electronically signed by:Tiffani Carrero RN Feb 03 2017 10:11AM WORKPLACE RELATIONS ADVISER Genericprovider [facility] OTHER documented in this encounter Visit Diagnoses Not on filedocumented in this encounter Care Teams Agent Broker Relationship Specialty Start Date End Date Casey Berry II, DO PCP - General 11/22/06 08/17/19 Stephani Aleman MD PCP - General Family Medicine 08/18/19 09/16/20 Bianka Loera MINES SAFETY ENGINEER [address] [place] [address] PCP - General Nurse Practitioner Family 09/17/2001/10 Desiree Patrick MD [address] [place] [address] PCP - General Electrophysiology 02/23/22 03/09/22 Desiree Patrick MD [address] [place] [address] 08/09/17 Farrah Nicole APRN,LOBSTER CATCHER [address] [place] [phone] 08/09/17 Bry Echevarria MD [address] [place] [phone] 08/09/17 Casey Berry II, DO 08/09/17 Shruti Vergara RN RN Registered Nurse 08/27/20 documented as of this encounter Additional Source Comments PLEASE NOTE: Replies to this message will not be received.[facility] and [facility]
--- OUTSIDE RECORDS SUMMARY | 2023-08-16 11:21 | XMS_ITS | Encounter Summary ---
Author Name Unknown Organization [email or web address] Address [address] [place] [address] Care Team Providers Care Business Continuity Analyst Name Role Phone Jamal CARLISLE DO, Robert William Primary Care Provide r Unavailable Desiree Patrick MD Unavailable Farrah Nicole APRN,KNOTTER HAND Unavailable Bry Echevarria MD Unavailable Jamal CARLISLE DO, Robert William Unavailable Unav Stephani Diaz MD Primary Care Provider Shruti Vergara RN Unavailable Unavailable Bianka Loera CNP Primary Care Provider [phone] Desiree Patrick MD Primary Care P rovider Encounter Details Date Type Department Care Team Description 10/26/2016 Historical Conversion [facility] Family Medicine [address] [place] [id number] Casey Berry II, DO Social History Tobacco Use Types Packs/Day Years Used Date Smoking Tobacco: Former Cigarettes Q uit: 1978 Alcohol Use Standard Drinks/Week Comments Yes 2 (1 standard drink = 0.6 oz pur e alcohol) 1-2 beers daily Sex and Gender Information Value Date Recorded Sex Assigned at Not on file Gender Identity Not on file Sexual Orientation Not on file documented as of this encounter Last Filed Vital Signs Vital Sign Reading Time Taken Comments Blood Pressure 117/73 10/26/2016 12:00 AM CDT Pulse - - Temperature - - Respiratory Rate - - Oxygen Saturation - - Inhaled Oxygen Concentration - - Weight 94 kg (207 lb 3.7 oz) 10/26/2016 12:00 AM CDT Height - - Body Mass Index 27.44 10/21/2016 2:01 PM CDT documented in this encounter Functional [...] on filedocumented in this encounter Care Teams Business Continuity Analyst Relationship Specialty Start Date End Date Casey Berry II, DO PCP - General 11/22/06 08/17/19 Stephani Aleman MD PCP - General Family Medicine 08/18/19 09/16/20 Bianka Loera CNP [address] [place] [phone] PCP - General Nurse Practitioner Family 09/17/2001/10 Desiree Patrick MD [address] [place] [phone] PCP - General Electrophysiology 02/23/22 03/09/22 Desiree Patrick MD [address] [place] [address] 08/09/17 Farrah Nicole APRN,KNOTTER HAND [address] [place] [address] 08/09/17 Bry Echevarria MD [address] [place] [address] [place] [address] 08/09/17 Casey Berry II, DO 08/09/17 Shruti Vergara RN RN Registered Nurse 08/27/20 documented as of this encounter Additional Source Comments PLEASE NOTE: Replies to this message will not be received.[facility] and [facility]
--- OUTSIDE RECORDS SUMMARY | 2023-08-16 11:21 | XMS_ITS | Encounter Summary ---
Author Name Unknown Organization [employer] Address [address] [place] [address] Care Team Providers Care Sugar Trucker Name Role Phone Jamal CARLISLE DO, Robert William Primary Care Provide r Unavailable Desiree Patrick MD Unavailable Farrah Nicole APRN,SUPERVISOR FIBER LOCKING Unavailable [phone] Bry Echevarria MD Unavailable Jamal CARLISLE DO, Robert William Unavailable Unav Stephani Diaz MD Primary Care Provider Shruti Vergara RN Unavailable Unavailable Bianka Loera CNP Primary Care Provider [phone] Desiree Patrick MD Primary Care P rovider Encounter Details Date Type Department Care Team Description 10/17/2016 Historical Conversion [facility] Family Medicine [address] [place] [id number] Social History Tobacco Use Types Packs/Day Years [...] Sign Reading Time Taken Comments Blood Pressure 131/85 10/17/2016 12:00 AM CDT Pulse - - Temperature - - Respiratory Rate - - Oxygen Saturation - - Inhaled Oxygen Concentration - - Weight 94.9 kg (209 lb 3.5 oz) 10/17/2016 12:00 AM CDT Height - - Body Mass Index 27.6 10/08/2016 9:42 AM CDT documented in this encounter Functional Status Functional Status Response Date of Assess ment Are you deaf or do you have serious difficulty hearing? Yes-slightly COUNCIL 10/17/2016 Are you blind or do you [...] on filedocumented in this encounter Care Teams Sugar Trucker Relationship Specialty Start Date End Date Casey Berry II, DO PCP - General 11/22/06 08/17/19 Stephani Aleman MD PCP - General Family Medicine 08/18/19 09/16/20 Bianka Loera CNP [address] [place] [phone] PCP - General Nurse Practitioner Family 09/17/2001/10 [place] [address] [place] [address] PCP - General Electrophysiology 02/23/22 03/09/22 Desiree Patrick MD [address] [place] [address] 08/09/17 Farrah Nicole APRN,SUPERVISOR FIBER LOCKING [address] [place] [address] 08/09/17 Bry Echevarria MD [address] [place] [phone] 08/09/17 Casey Berry II, DO 08/09/17 Shruti Vergara RN RN Registered Nurse 08/27/20 documented as of this encounter Additional Source Comments PLEASE NOTE: Replies to this message will not be received.[facility] and [facility]
--- OUTSIDE RECORDS SUMMARY | 2023-08-16 11:21 | XMS_ITS | Encounter Summary ---
Author Name Unknown Organization [employer] Address [address] [place] [address] Care Team Providers Care Manager Scheduling Name Role Phone Jamal CARLISLE DO, Robert William Primary Care Provide r Unavailable Desiree Patrick MD Unavailable Farrah Nicole APRN,RESPITE WORKER Unavailable [phone] Bry Echevarria MD Unavailable Jamal CARLISLE DO, Robert William Unavailable Unav xiable Stephani Aleman MD Primary Care Provider Shruti Vergara RN Unavailable Unavailable Bianka Loera CNP Primary Care Provider Desiree Patrick MD Primary Care P rovider Encounter Details Date Type Department Care Team Description 10/08/[address] [facility] Family Medicine [address] [place] [id number] Social History Tobacco Use Types Packs/Day Years [...] you have serious difficulty h earing? No 11/15/2015 Are you blind or do you have serious difficulty seeing, even when wearing glasses? No 11/15/2015 Do you have serious difficul ty walking or climbing stairs? No 11/15/2015 Do you have difficulty dressing or bathing? No 11/15/2015 Do you have difficulty doing errands alone such as visiting a doctor's office or shopping because of a physical, mental, or emotional condition? No 11/15/2015 Cognitive Status Response Date of Assessm ent Do you have trouble concentr ating, remembering, or making decisions because of a physical, mental, or emotional condition? No 11/15/2015 documented as of this encounter Nursing Notes * [facility] - 10/08/2016 12:00 AM CDT Patient calls triage with complaints of elevated heart rate in the 140's since Wednesday morning. He states that he has taken his prescribed Beta-Blockers multiple times and they have not been helping with the elevated heart rate as they should be. Patient denies any shortness of breath, dizziness, lig htheadedness, chest pain or confusion. Patient instructed by service writer to go to the Emergency Room at [facility] to be evaluated. Patient verbalized understanding of instructions. STACY MCCAULEY Electronically signed by:Tammy Coronado RN Oct 08 2016 8:22AM APPLICATION PACKAGING CONSULTANT documented in this encounter Plan of Treatment Not on file documented as of this encounter Visit Diagnoses Not on filedocumented in this encounter Care Teams Manager Scheduling Relationship Specialty Start Date End Date Casey Berry II, DO PCP - General 11/22/06 08/17/19 Stephani Aleman MD PCP - General Family Medicine 08/18/19 09/16/20 Bianka Loera CNP [address] [place] [address] [address] [place] [address] PCP - General Nurse Practitioner Family 09/17/20 712/31 PatrickDesiree pitts MD [address] [place] [facility] [place] [address] PCP - General Electrophysiology 02/23/22 03/09/22 Desiree Patrick MD [address] [facility] [place] [address] 08/09/17 Farrah Nicole APRN,RESPITE WORKER [address] [place] [facility] [place] [address] 08/09/17 Bry Echevarria MD [address] [place] [address] 08/09/17 Casey Berry II, DO 08/09/17 Shruti Vergraa RN RN Registered Nurse 08/27/20 documented as of this encounter Additional Source Comments PLEASE NOTE: Replies to this message will not be received.[facility] and [facility]
--- OUTSIDE RECORDS SUMMARY | 2023-08-16 11:21 | XMS_ITS | Encounter Summary ---
Author Name Unknown Organization [employer] Address [address] [place] [address] Care Team Providers Care Music Sound Light Technician Name Role Phone Jamal CARLISLE DO, Robert William Primary Care Provide r Unavailable Desiree Patrick MD Unavailable Farrah Nicole APRN,TACTICAL RESPONSE GROUP OFFICER Unavailable Byr Echevarria MD Unavailable [phone] Jamal CARLISLE DO, Robert William Unavailable Unav Stephani Diaz MD Primary Care Provider Shruti Vergara RN Unavailable Unavailable Bianka Loera CNP Primary Care Provider Desiree Patrick MD Primary Care P rovider Encounter Details Date Type Department Care Team Description 04/06/2017 Historical Conversion [facility] Family Medicine [address] [place] [id number] Casey Berry II, DO Social History Tobacco [...] Sign Reading Time Taken Comments Blood Pressure 116/82 04/06/2017 12:00 AM CDT Pulse - - Temperature - - Respiratory Rate - - Oxygen Saturation - - Inhaled Oxygen Concentration - - Weight 94 kg (207 lb 3.7 oz) 04/06/2017 12:00 AM CDT Height - - Body Mass Index 26.97 02/01/2017 10:56 AM CDT documented in this [...] on filedocumented in this encounter Care Teams Music Sound Light Technician Relationship Specialty Start Date End Date Casey Berry II, DO PCP - General 11/22/06 08/17/19 Stephani Aleman MD PCP - General Family Medicine 08/18/19 09/16/20 Bianka Loera CNP [address] [place] [address] 2 [place] [phone] PCP - General Nurse Practitioner Family 09/17/2001/10 Desiree Patrick MD [address] [place] [address] PCP - General Electrophysiology 02/23/22 03/09/22 Desiree Patrick MD [address] [place] [address] 08/09/17 Farrah Nicole APRN,TACTICAL RESPONSE GROUP OFFICER [address] [place] [address] 08/09/17 Bry Echevarria MD [address] [place] [address] 08/09/17 Casey Berry II, DO 08/09/17 Shruti Vergara RN RN Registered Nurse 08/27/20 documented as of this encounter Additional Source Comments PLEASE NOTE: Replies to this message will not be received.[facility] and [facility]
--- OUTSIDE RECORDS SUMMARY | 2023-08-16 11:21 | XMS_ITS | Encounter Summary ---
Author Name Unknown Organization [email or web address] Address [address] [place] [address] Care Team Providers Care Photographer'S Model Name Role Phone Jamal CARLISLE DO, Robert William Primary Care Provide r Unavailable Desiree Patrick MD Unavailable Farrah Nicole APRN,CORRECTIONAL FACILITY NURSE Unavailable [phone] Bry Echevarria MD Unavailable [phone] Jamal CARLISLE DO, Robert William Unavailable Unav xiable Stephani Aleman MD Primary Care Provider Shruti Vergara RN Unavailable Unavailable Bianka Loera CNP Primary Care Provider Desiree Patrick MD Primary Care P rovider Encounter Details Date Type Department Care Team Description 10/09/2016 Historical Conversion [facility] Family Medicine [address] [facility] [place], [place] [id number] Jana Aleman APRN,ROTOR PILOT [address] [place] [address] Social History Tobacco Use Types [...] Sign Reading Time Taken Comments Blood Pressure 121/81 10/09/2016 12:00 AM CDT Pulse - - Temperature - - Respiratory Rate - - Oxygen Saturation - - Inhaled Oxygen Concentration - - Weight 96.2 kg (212 lb 1.3 oz) 10/09/2016 12:00 AM CDT Height - - Body Mass Index 27.98 10/08/2016 9:42 AM CDT documented in this [...] No 11/15/2015 documented as of this encounter Progress Notes * Jana Aleman, PEST CONTROL TECHNICIAN,ROTOR PILOT - 10/09/2016 12:00 AM CDT Assessment 1. Former smoker: 0 - 10 pack years (V15.82) (Z87.891) 2. Family history of Oral cancer : Father 3. Family history of Alzheimer's disease (V17.2) (Z82.0) : Mother 4. Family history of type 2 diabetes mellitus (V18.0) (Z83.3) : Paternal Aunt, Father, Paternal Grandfather 5. Family history of malignant neoplasm of stomach (V16.0) (Z80.0) : Maternal Grandfather 6. Family history of Healthy adult : Daughter 7. Family history of Heart palpitations : Daughter 8. History of Hand Excision Of Tendon Cyst 9. Atrial fibrillation with RVR (427.31) (I48.91) Plan We are going to refer the patient to cardiology to an EP doctor. The patient would like the first available appointment with either [facility] and or [facility]. He is instructed to return should his symptoms return. We will have him complete a chest x-ray today as well as a troponin level, TSH, and basic metabolic panel. We will contact the patient pending the results. He verbalizesan understanding and is in agreement with this plan. He is currently on warfarin for the atrial fibrillation and is currently on metoprolol and will remain on this. Plan Orders Atrial fibrillation with RVR Drawing Fee; Status:Complete; Done: 09Oct2016 Cardiology Consult Consult Only Evaluation and Treatment For: Atrial fibrillation with RVR Status: Active Requested for: 10Apr2017 Care Summary provided. : Yes Date/Time : 21Oct2016 02:00PM patient aware of the appointment date and time? : Yes Related: : No Encounter: : No With: : Dr Thao Phone Number to Contact Patient: : [phone] to Provider, Practice or Agency: : Either [facility] or [facility] Reason For Visit Patient in for irregular heartbeat History of Present Illness Cristian is a very pleasant 70-year-old male patient of Dr. Caldwell who presents to the clinic today with his for an ER follow-up. The patient has a history of paroxysmal tachycardia as well as a history of atrial fibrillation. Four days ago, he developed a fast heart rate in the 130s and states that he took an extra dose of metoprolol. He continued to take metoprolol twice daily which did not he lp. He ultimately went into the emergency room yesterday and was given IV metoprolol with no help and subsequently given Cardizem which did cause the patient to become hypotensive. He was found to bein atrial flutter/tachycardia with RVR. He was subsequently discharged back home and he reports that he has not been symptomatic since. He denies any chest pain or recent changes in his medications. He did have some diarrhea last week but states that that has resolved. Past Medical History 1. Afib (427.31) (I48.91) 2. Ascending aortic aneurysm (441.2) (I71.2) 3. Avitaminosis D (268.9) (E55.9) 4. Difficulty swallowing (787.20) (R13.10) 5. Dilated aortic root (447.71) (I77.810) 6. Hyperglycemia (790.29) (R73.9) 7. Denied: History of Nicotine Dependence 8. Paroxysmal tachycardia (427.2) (I47.9) 9. History of Vision Assessment Surgical History 1. History of Colonoscopy (Fiberoptic) ?? due 02/04/2020 Family History Mother 1. Family history of [...] pack years (V15.82) (Z87.891) Current Meds 1. Enoxaparin Sodium 100 MG/ML Subcutaneous Solution; INJECT 100 MG SUBCUTANEOUS DAILY 4 DOSES FOR 4 DAYS; Therapy: 05Oct2016 to (Last Rx:05Oct2016) Requested for: 05Oct2016 Ordered 2. Lisinopril 10 MG Oral Tablet; TAKE 1 TABLET BY MOUTH ONCE DAILY; Therapy: 60Fhs6930 to (Evaluate:[id number]) Requested for: 13Jul2016; Last Rx:13Jul2016 Ordered 3. Metoclopramide HCl - 5 MG Oral Tablet; TAKE 1 TABLET as needed; Therapy: 10Sep2014 to Requested for: [id number] Recorded 4. Metoprolol Tartrate 25 MG Oral Tablet; 1 prn a fib; Therapy: (Recorded:[id number]) to Requested for: [id number] Recorded 5. Tylenol Extra Strength 500 MG Oral Tablet; Therapy: (Recorded:73Snd3645) to Recorded 6. Warfarin Sodium 5 MG Oral Tablet; Take as directed by [facility]; Therapy: 20Ezm5886 to (Evaluate:68Nlh9406) Requested for: 14Jul2016 Recorded Allergies 1. Penicillins 2. Sulfa Drugs Vitals Recorded: 09Oct2016 08:57AM Systolic 121, LUE, Sitting Diastolic 81, LUE, Sitting Heart Rate 55 Respiration 16 Temperature 97.5 F, Tympanic Weight 96.2 kg BMI Calculated 28.08 BSA Calculated 2.2 O2 Saturation 96 Physical Exam General Appearance: CRISTIAN is healthy-appearing, alert, well nourished, well developed and in no acute distress. Head and Face: normocephalic. Eyes: the sclera and conjunctiva were normal ENT: both tympanic membranes were clear bilaterally and the oropharynx was clear. Neck: supple and no lymphadenopathy. Pulmonary: normal bilateral breath sounds and clear to auscultation bilaterally. Cardiovascular: normal heart rate and rhythm. Chest: the chest was normal in appearance. Abdomen: soft, non-tender and normal bowel sounds. Musculoskeletal: no edema. Neurologic: cranial nerves are grossly intact and reflexes are 2+ and symmetric. Psychiatric: appropriate mood and affect, good eye contact and answers questions appropriately. Signatures Electronically signed by : Jana Aleman RN CNP RN,NIKKI; Oct 18 2016 1:54PM SCHOOL BUS DRIVER/MECHANIC Electronically signed by : Casey Berry DO; Oct 22 2016 1:20PM SCHOOL BUS DRIVER/MECHANIC documented in this encounter Plan of Treatment Not on file documented as of this encounter Visit Diagnoses Not on filedocumented in this encounter Care Teams Photographer'S Model Relationship Specialty Start Date End Date Casey Berry II, DO PCP - General 11/22/06 08/17/19 Stephani Aleman MD PCP - General Family Medicine 08/18/19 09/16/20 Bianka Loera CNP [address] [facility] [place] [address] PCP - General Nurse Practitioner Family 09/17/20 712/31 Desiree Patrick MD [address] [place] [address] PCP - General Electrophysiology 02/23/22 03/09/22 Desiree Patrick MD [address] [place] [address] 08/09/17 Farrah Nicole APRN,CORRECTIONAL FACILITY NURSE [address] [place] [address] 08/09/17 Bry Echevarria MD [address] [facility] [place] [address] 08/09/17 Casey Berry II, DO 08/09/17 Shruti Vergara RN RN Registered Nurse 08/27/20 documented as of this encounter Additional Source Comments PLEASE NOTE: Replies to this message will not be received.[facility] and [facility]
--- OUTSIDE RECORDS SUMMARY | 2023-08-16 11:21 | XMS_ITS | Encounter Summary ---
Author Name Unknown Organization [employer] Address [address] [place] [address] Care Team Providers Care Stem Lead Former Name Role Phone Jamal CARLISLE DO, Robert William Primary Care Provide r Unavailable Desiree Patrick MD Unavailable Farrah Nicole APRN,ROAD COMMISSIONER Unavailable Bry Echevarria MD Unavailable Jamal CARLISLE DO, Robert William Unavailable Unav Stephani Diaz MD Primary Care Provider Shruti Vergara RN Unavailable Unavailable Bianka Loera CNP Primary Care Provider Desiree Patrick MD Primary Care P rovider Encounter Details Date Type Department Care Team Description 12/31/2016 Historical Conversion [facility] Family Medicine [address] [facility]. [address] [place], [place] [id number] Desiree Rubi PAC [address] [place] [address] Social History Tobacco Use Types [...] Sign Reading Time Taken Comments Blood Pressure 110/62 12/31/2016 12:00 AM CDT Pulse - - Temperature - - Respiratory Rate - - Oxygen Saturation - - Inhaled Oxygen Concentration - - Weight 93.5 kg (206 lb 2.1 oz) 12/31/2016 12:00 AM CDT Height - - Body Mass Index 26.83 11/26/2016 12:54 PM CDT documented in this [...] on filedocumented in this encounter Care Teams Stem Lead Former Relationship Specialty Start Date End Date Casey Berry II, DO PCP - General 11/22/06 08/17/19 Stephani Aleman MD PCP - General Family Medicine 08/18/19 09/16/20 Bianka Loera CNP [address] [facility] [address] [facility] 2 [place] [address] PCP - General Nurse Practitioner Family 09/17/2001/10 Desiree Patrick MD [address] [place] [address] PCP - General Electrophysiology 02/23/22 03/09/22 Desiree Patrick MD [address] [place] [address] 08/09/17 Farrah Nicole APRN,ROAD COMMISSIONER [address] [place] [address] 08/09/17 Bry Echevarria MD [address] [place] [address] [place] [address] 08/09/17 Casey Berry II, DO 08/09/17 Shruti Vergara RN RN Registered Nurse 08/27/20 documented as of this encounter Additional Source Comments PLEASE NOTE: Replies to this message will not be received.[facility] and [facility]
--- OUTSIDE RECORDS SUMMARY | 2023-08-16 11:21 | XMS_ITS | Encounter Summary ---
Author Name Unknown Organization [employer] Address [address] [place] [address] Care Team Providers Care Geoscience Technician Name Role Phone Jamal CARLISLE DO, Robert William Primary Care Provide r Unavailable Desiree Patrick MD Unavailable Farrah Nicole APRN,OCCUPATIONAL THERAPY SPECIALIST Unavailable Bry Echevarria MD Unavailable [phone] Jamal CARLISLE DO, Robert William Unavailable Unav Stephani Diaz MD Primary Care Provider Shruti Vergara RN Unavailable Unavailable Bianka Loera CNP Primary Care Provider Desiree Patrick MD Primary Care P rovider Encounter Details Date Type Department Care Team Description 11/30/2016 Historical Conversion [facility] Family Medicine [address] [place] [address] Casey Berry II, DO Social History Tobacco [...] Sign Reading Time Taken Comments Blood Pressure 121/83 11/30/2016 12:00 AM CDT Pulse - - Temperature - - Respiratory Rate - - Oxygen Saturation - - Inhaled Oxygen Concentration - - Weight 94.2 kg (207 lb 10.8 oz) 017 12:00 AM CDT Height - - Body Mass Index 27.03 11/26/2016 12:54 PM CDT documented in this [...] on filedocumented in this encounter Care Teams Geoscience Technician Relationship Specialty Start Date End Date Casey Berry II, DO PCP - General 11/22/06 08/17/19 Stephani Aleman MD PCP - General Family Medicine 08/18/19 09/16/20 Bianka Loera CNP [address] [place] [address] 2 [place] [phone] PCP - General Nurse Practitioner Family 09/17/2001/10 Desiree Patrick MD [address] [place] [address] PCP - General Electrophysiology 02/23/22 03/09/22 Desiree Patrickna, MD [address] [place] [facility] [place] [address] 08/09/17 Farrah Nicole APRN,[facility] [address] [place] [address] 08/09/17 Bry Echevarria MD [facility] [place] [address] 08/09/17 Casey Berry II, DO 08/09/17 Shruti Vergara RN RN Registered Nurse 08/27/20 documented as of this encounter Additional Source Comments PLEASE NOTE: Replies to this message will not be received.[facility]
--- OUTSIDE RECORDS SUMMARY | 2023-08-16 11:21 | XMS_ITS | Encounter Summary ---
Author Name Unknown Organization [employer] Address [address] [place] [address] Care Team Providers Care Internet Developer Name Role Phone Jamal CARLISLE DO, Robert William Primary Care Provide r Unavailable Desiree Patrick MD Unavailable Farrah Nicole APRN,DEPARTMENT HEAD COLLEGE OR UNIVERSITY Unavailable Bry Echevarria MD Unavailable [phone] Jamal CARLISLE DO, Robert William Unavailable Unav Stephani Diaz MD Primary Care Provider Shruti Vergara RN Unavailable Unavailable Bianka Loera CNP Primary Care Provider [phone] Desiree Patrick MD Primary Care P rovider Encounter Details Date Type Department Care Team Description 11/06/2016 Historical Conversion [facility] Family Medicine [address] [place] [phone] Moon Maloney MD Social History Tobacco Use [...] Sign Reading Time Taken Comments Blood Pressure 110/74 11/06/2016 12:00 AM CDT Pulse - - Temperature - - Respiratory Rate - - Oxygen Saturation - - Inhaled Oxygen Concentration - - Weight 94.6 kg (208 lb 8.9 oz) 11/06/2016 12:00 AM CDT Height - - Body Mass Index 27.61 10/21/2016 2:01 PM CDT documented in this [...] on filedocumented in this encounter Care Teams Internet Developer Relationship Specialty Start Date End Date Casey Berry II, DO PCP - General 11/22/06 08/17/19 Stephani Aleman MD PCP - General Family Medicine 08/18/19 09/16/20 Bianka Loera CNP [address] [place] [address] 2 [place] [phone] PCP - General Nurse Practitioner Family 09/17/2001/10 [place] [address] [place] [address] PCP - General Electrophysiology 02/23/22 03/09/22 Desiree Patrick MD [address] [place] [address] 08/09/17 Farrah Nicole APRN,[facility] [address] [place] [address] 08/09/17 Bry Echevarria MD [address] [place], [place] [address] [address] 08/09/17 Casey Berry II, DO 08/09/17 Shruti Vergara RN RN Registered Nurse 08/27/20 documented as of this encounter Additional Source Comments PLEASE NOTE: Replies to this message will not be received.[facility]
--- OUTSIDE RECORDS SUMMARY | 2023-08-16 11:22 | XMS_ITS | Encounter Summary ---
Author Name Unknown Organization [employer] Address [address] [place] [address] Care Team Providers Care Medical Assistant Internal Medicine Name Role Phone Jamal CARLISLE DO, Robert William Primary Care Provide r Unavailable Desiree Patrick MD Unavailable Farrah Nicole APRN,MAIL OPENER Unavailable Bry Echevarria MD Unavailable Jamal CARLISLE DO, Robert William Unavailable Unav Stephani Diaz MD Primary Care Provider Shruti Vergara RN Unavailable Unavailable Bianka Loera CNP Primary Care Provider Desiree Patrick MD Primary Care P rovider Encounter Details Date Type Department Care Team Description 03/10/2016 Historical Conversion [facility] Family Medicine [address] [place] [address] Casey Berry II, DO Social History Tobacco Use Types Packs/Day Years Used Date Smoking Tobacco: Former Cigarettes Q uit: 1978 Alcohol Use Standard Drinks/Week Comments Yes 0 (1 standard drink = 0.6 oz pur e alcohol) occasional Sex and Gender Information Value Date Recorded Sex Assigned at Not on file Gender Identity Not on file Sexual Orientation Not on file documented as of this encounter Last Filed Vital Signs Vital Sign Reading Time Taken Comments Blood Pressure 124/71 03/10/2016 12:00 AM CDT Pulse - - Temperature - - Respiratory Rate - - Oxygen Saturation - - Inhaled Oxygen Concentration - - Weight 91.1 kg (200 lb 13.4 oz) 016 12:00 AM CDT Height - - Body Mass Index 26.5 11/15/2015 11:41 PM CDT documented in this encounter Functional [...] No 11/15/2015 documented as of this encounter Plan of Treatment Not on file documented as of this encounter Visit Diagnoses Not on filedocumented in this encounter Care Teams Medical Assistant Internal Medicine Relationship Specialty Start Date End Date Casey Berry II, DO PCP - General 11/22/06 08/17/19 Stephani Aleman MD PCP - General Family Medicine 08/18/19 09/16/20 Bianka Loera CNP [address] [place] [phone] PCP - General Nurse Practitioner Family 09/17/2001/10 [place] [address] [place] [address] PCP - General Electrophysiology 02/23/22 03/09/22 Desiree Patrick MD [address] [place] [address] 08/09/17 Farrah Nicole APRN,MAIL OPENER [address] [place] [address] 08/09/17 Bry Echevarria MD [address] [place] [address] 08/09/17 Casey Berry II, DO 08/09/17 Shruti Vergara RN RN Registered Nurse 08/27/20 documented as of this encounter Additional Source Comments PLEASE NOTE: Replies to this message will not be received.[facility]
--- OUTSIDE RECORDS SUMMARY | 2023-08-16 11:22 | XMS_ITS | Encounter Summary ---
Author Name Unknown Organization [facility] Address [address] [place] [address] Care Team Providers Care Oil Well Shooter Name Role Phone Jamal CARLISLE DO, Robert William Primary Care Provide r Unavailable Desiree Patrick MD Unavailable Farrah Nicole APRN,INTERMEDIATE TEACHER Unavailable Bry Echevarria MD Unavailable Jamal CARLISLE DO, Robert William Unavailable Unav xiable Stephani Aleman MD Primary Care Provider Shruti Vergara RN Unavailable Unavailable Bianka Loera CNP Primary Care Provider [phone] Desiree Patrick MD Primary Care P rovider Encounter Details Date Type Department Care Team Description 08/22/2014 Historical Conversion [facility] Family Medicine [address] [place] [id number] Casey Berry II, DO Social History Tobacco Use Types Packs/Day Years Used Date Smoking Tobacco: Never Assessed Sex and Gender Information Value Date Recorded Sex Assigned at Not on file Gender Identity Not on file Sexual Orientation Not on file documented as of this encounter H&P Notes * Casey Berry II, DO - 08/22/2014 12:00 AM CST HISTORY AND PHYSICAL CRISTIAN BLEDSOE : 1945 HX: [id number] DOS: 08/22/2014 CHIEF COMPLAINT: Routine physical. HISTORY OF CHIEF COMPLAINT: The patient filled out his paperwork. He does not see any other regularphysicians. He has no major complaints. PAST MEDICAL HISTORY: 1. Hypertension. PAST SURGICAL HISTORY: 1. Ganglion cyst over the left wrist. 2. Vasectomy. 3. Tube placed in his right ear. CURRENT MEDICATIONS: 1. Advil p.r.n. 2. Astelin nasal spray p.r.n. 3. Lisinopril 10 mg daily. FAMILY HISTORY: Father and had oral cancer. Mother and had Alzheimer's. Diabetes runs in the family. SOCIAL HISTORY: He does not smoke. He has rare caffeine, rare alcohol. 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 ALLERGIES: PENICILLIN AND SULFA. HEALTH CARE MAINTENANCE: Tetanus in 2013. Colonoscopy in 2009. Pneumovax in 2009. REVIEW OF SYSTEMS: CONSTITUTIONAL: Denies weight loss, weight gain, fevers, chills, or night sweats. HEENT: Denies blurred vision, double vision, earache, sore throat, runny nose, congestion. CARDIOVASCULAR: Denies chest pain, palpitations, dyspnea on exertion. RESPIRATORY: Denies cough, congestion, runny nose. GI: Patient is noticing food getting stuck in the throat. Denies nausea, vomiting, diarrhea, constipation, melena, hematochezia, weight loss, weight gain. MS: Denies aches, pains. NEURO/PSYCH: Denies stroke, seizure, anxiety, or depression. ENDOCRINE: Denies polyuria, polydipsia, polyphagia, heat or cold intolerance, unusual alopecia. HEMATOLOGIC: Denies blood dyscrasias or anemia. : Denies dysuria, polyuria, hematuria. PHYSICAL EXAMINATION: VITALS: Vitals are reviewed in [employer].\RPlease see vitals tab for details. EYES: Pupils equal, round, reactive to light and accommodation. Extraocular muscles intact. Funduscopic exam benign. EARS: Tympanic membrane intact, cone of light noted. THROAT: No erythema, no lesion. NECK: No adenopathy, bruits, thyroid enlargement. LYMPH NODES: No nodes in pre- and postauricular, anterior posterior cervical, axillary, epitrochlear, or inguinal. HEART: Regular rate and rhythm without murmur, S3, S4, gallop, or rub. PMI nondisplaced. LUNGS: Clear to auscultation without egophony, wheeze, bronchial breath sounds, change in tactile fremitus. ABDOMEN: Bowel sounds heard. No masses, no bruits, nontender, no hepatosplenomegaly, no jaundice, no Ramy's, no guarding, no rebound, no rigidity. EXTREMITIES: No clubbing, cyanosis, or edema. Capillary refill within two seconds. Pulses 2/4 bilaterally, upper and lower extremities. NEUROLOGIC: Alert and oriented x three. Cranial nerves II-XII grossly intact. Deep tendon reflexes 2/4 bilaterally, upper and lower extremities. Babinski's absent. Negative ankle clonus. Romberg negative. Gait normal. Cerebellar functions intact. SKIN: Warm and dry without rash. GENITALIA: No mass, lesions, or discharge. RECTAL: Heme negative. Prostate firm, no masses, nontender. IMPRESSION: 1. Hypertension. PLAN: 1. Refill above medications. 2. CBC, PSA, vitamin D, comp, and lipid were recently done. 3. Upper GI with small bowel followthrough. Casey Berry II, D.O./[id number] Electronically signed by:Casey Berry D.O. Sep 06 2014 7:40AM PBX TEACHER documented in this encounter Plan of Treatment Not on file documented as of this encounter Visit Diagnoses Not on filedocumented in this encounter Care Teams Oil Well Shooter Relationship Specialty Start Date End Date Casey Berry II, DO PCP - General 11/22/06 08/17/19 Stephani Aleman MD PCP - General Family Medicine 08/18/19 09/16/20 Bianka Loera CNP [address] [place] [address] [address] [place] [address] PCP - General Nurse Practitioner Family 09/17/20 712/31 Desiree Patrick, MD [address] [facility] [place] [address] PCP - General Electrophysiology 02/23/22 03/09/22 Desiree Patrick MD [address] [facility] [place] [phone] 08/09/17 Farrah Nicole APRN,INTERMEDIATE TEACHER [address] [facility] [place] [address] 08/09/17 Bry Echevarria MD [address] [place] [address] 08/09/17 Casey Berry II, DO 08/09/17 Shruti Vergara RN RN Registered Nurse 08/27/20 documented as of this encounter Additional Source Comments PLEASE NOTE: Replies to this message will not be received.[facility] Pending [facility] To [facility]
--- OUTSIDE RECORDS SUMMARY | 2023-08-16 11:22 | XMS_ITS | Encounter Summary ---
Author Name Unknown Organization [facility] Address [address] [place] [address] Care Team Providers Care Personal Financial Advisor Name Role Phone Jamal CARLISLE DO, Robert William Primary Care Provide r Unavailable Desiree Patrick MD Unavailable Farrah Nicole APRN,DOUBLE REAMER OPERATOR Unavailable Bry Echevarria MD Unavailable Jamal CARLISLE DO, Robert William Unavailable Unav Stephani Diaz MD Primary Care Provider Shruti Vergara RN Unavailable Unavailable Bianka Loera CNP Primary Care Provider Desiree Patrick MD Primary Care P rovider Encounter Details Date Type Department Care Team Description 08/28/2015 Historical Conversion [facility] Family Medicine [address] [place] [id number] Casey Berry II, DO Social History Tobacco Use Types Packs/Day Years Used Date Smoking Tobacco: Never Assessed Sex and Gender Information Value Date Recorded Sex Assigned at Not on file Gender Identity Not on file Sexual Orientation Not on file documented as of this encounter Last Filed Vital Signs Vital Sign Reading Time Taken Comments Blood Pressure 134/90 08/28/2015 12:00 AM FITTER / WELDER Pulse - - Temperature - - Respiratory Rate - - Oxygen Saturation - - Inhaled Oxygen Concentration - - Weight 90.2 kg (198 lb 13.7 oz) 016 12:00 AM FITTER / WELDER Height 186 cm (6' 1.23) 08/28/2015 12: 00 AM FITTER / WELDER Body Mass Index 26.07 08/28/2015 12:00 AM FITTER / WELDER documented in this encounter Progress Notes * Casey Berry II, DO - 06/24/2016 12:00 AM CST Assessment 1. Former smoker: 0 - 10 pack years (V15.82) (Z87.891) Pulmonary nodule. Stable ascending thoracic aneurysm. PlanRepeat CT scan in the next six months to a year. SocHx: Former smoker: 0 - 10 pack years Former Smoker: Since tobacco use can have significant health risks, you are helping yourself and others stay healthy by no longer smoking.; Status:Complete; Done: [id number] Reason For Visit Go over CT results. History of Present Illness This is a 70-year-old male who comes in today to discuss results of the CT angiography. This did show aneurysm and pulmonary nodule. We did discuss with him about the results of the aneurysm and pulmonary nodule and what this means to him. He needs to have a routine follow up next year. Current Meds 1. Lisinopril 10 MG Oral Tablet; TAKE 1 TABLET BY MOUTH ONCE DAILY; Therapy: 93Pqn4174 to (Evaluate:35Hsi5670) Requested for: 70Hhx0897; Last Rx:[id number] Ordered 2. Metoclopramide HCl - 5 MG Oral Tablet; TAKE 1 TABLET BY MOUTH THREE TIMES DAILY WITH MEALS; Therapy: 10Sep2014 to (Evaluate:13Nco0925) Requested for: 92Tgr4284; Last Rx:12Dus3420 Ordered 3. Metoprolol Tartrate 25 MG Oral Tablet; 1/2 to 1 prn a fib Requested for: 49Yzc7996; Last Rx:90Dhc9825 Ordered 4. Tylenol Extra Strength 500 MG Oral Tablet; Therapy: (Recorded:69Wvp1847) to Recorded 5. Warfarin Sodium 5 MG Oral Tablet; Take as directed by ACC; Therapy: 42Qsg8724 to (Evaluate:15May2017) Requested for: 20May2016 Recorded Allergies 1. Penicillins 2. Sulfa Drugs Vitals Recorded: 65Uku0288 10:00AM Systolic 115, RUE, Sitting Diastolic 76, RUE, Sitting Heart Rate 65 Respiration 16 Temperature 97.6 F, Forehead Weight 91.5 kg BMI Calculated 26.45 BSA Calculated 2.16 2+ Falls or 1 Fall with injury in last year? No O2 Saturation 96 Signatures Casey Berry II, D.OWilliam/pj-29 Electronically signed by : Casey Berry DO; Jul 09 2016 1:56PM FITTER / WELDER * Casey Berry II, DO - 03/10/2016 12:00 AM CDT Chief Complaint/Reason for Visit AFIB History of Present Illness This is a 70-year-old male who comes in today for atrial fibrillation. He states that he is having more episodes of atrial fibrillation. They will last a few hours. They do seem to come and go for him. It does appear that he is having them more frequently then noted before. The patient states that he is not been doing anything, taking any caffeine or medications that should cause him to have the increased atrial fibrillation. He has been on a beta raya on a regular schedule in the past, which causes him to have bradycardia. He states that he has gone to the hospital once with atrial fibrillation, but it began to slow down with an IV medication. Current Meds 1. Lidocaine 5 % External Ointment; use sparingly qid; Therapy: 18Nov2015 to (Last Rx:18Wst0598) Requested for: 74Gms7666 Ordered 2. Lisinopril 10 MG Oral Tablet; TAKE 1 TABLET BY MOUTH ONCE DAILY; Therapy: 21Pzo4515 to (Evaluate:24Lml2068) Requested for: 09Hie3946; Last Rx:[id number] Ordered 3. Metoclopramide HCl - 5 MG Oral Tablet; TAKE 1 TABLET BY MOUTH THREE TIMES DAILY WITH MEALS; Therapy: 10Sep2014 to (Evaluate:11Wcd4975) Requested for: 33Rwn4425; Last Rx:[id number] Ordered 4. Tylenol Extra Strength 500 MG Oral Tablet; Therapy: (Recorded:95Lje7210) to Recorded 5. Warfarin Sodium 5 MG Oral Tablet; Take as directed by ACC; Therapy: 88Dxd0504 to (Evaluate:32Mqm6205) Requested for: 19Feb2016; Last Rx:19Feb2016 Ordered Allergies 1. Penicillins 2. Sulfa Drugs Social History 1. Former smoker: 0 - 10 pack years (V15.82) (Z87.891) Review of Systems CONSTITUTIONAL:Denies weight loss, weight gain, fevers, chills, or night sweats. HEENT:Denies blurred vision, double vision, earache, sore throat, runny nose, congestion. CARDIOVASCULAR:See history of chief complaint. RESPIRATORY:Denies cough, congestion, runny nose. GI:Denies nausea, vomiting, diarrhea, constipation, melena, hematochezia, weight loss, weight gain. MS:Denies aches, pains. NEURO/PSYCH:Denies stroke, seizure, anxiety, or depression. ENDOCRINE:Denies polyuria, polydipsia, polyphagia, heat or cold intolerance, unusual alopecia. HEMATOLOGIC:Denies blood dyscrasias or anemia. :Denies dysuria, polyuria, hematuria. Vitals Vital Signs [Data Includes: Current Encounter] Recorded: 15Xlg9779 10:06AM Blood Pressure 124 / 71 Heart Rate 69 Respiration 16 Temperature 98.1 F Weight 91.1 kg BMI Calculated 26.33 BSA Calculated 2.16 O2 Saturation 98 Physical Exam EYES:Pupils equal, round, reactive to light and accommodation. Extraocular muscles intact. Funduscopic exam benign. EARS:Tympanic membrane intact, cone of light noted. THROAT:No erythema, no lesion. HEART: Irregular rate. LUNGS:Clear to auscultation without egophony, wheeze, bronchial breath sounds, change in tactile fremitus. ABDOMEN:Bowel sounds heard. No masses, no bruits, nontender, no hepatosplenomegaly, no jaundice, noLloyd's, no guarding, no rebound, no rigidity. Assessment 1. Former smoker: 0 - 10 pack years (V15.82) (Z87.891) 1. Atrial fibrillation with more episodes of symptomatic changes. Plan 1. Metoprolol Tartrate 25 MG Oral Tablet; 1/2 to 1 prn a fib 1. We will give him Metoprolol 25 mg one half to one tablet daily p.r.n. as needed for accelerated heart rate. If this continues, we may need to talk to Dr. Youssef about further intervention sincehe cannot take beta blockers without getting severe bradycardia. Signatures Casey Berry II, Arcadio.Veena/pj-14 Electronically signed by : Casey Berry DO; Apr 02 2016 8:50AM FITTER / WELDER * Casey Berry II, DO - 01/28/2016 12:00 AM CDT Chief Complaint/Reason for Visit Medications. History of Present Illness This is a 70-year-old male, who is coming in for medications. He is currently taking Xarelto but due to the mckee, he would like to go to Warfarin. We did discuss with him about the use of Warfarin. We did discuss the side effects, the pluses and minuses of using Warfarin. We discussed with him about monitoring and followup. Past Medical History 1. Afib (427.31) (I48.91) 2. Avitaminosis D (268.9) (E55.9) 3. Difficulty swallowing (787.20) (R13.10) 4. Dilated aortic root (447.71) (I77.810) 5. Denied: History of nicotine dependence 6. Paroxysmal tachycardia (427.2) (I47.9) 7. History of Vision Assessment Surgical History 1. History of Colonoscopy (Fiberoptic) Current Meds 1. Lidocaine 5 % External Ointment; use sparingly qid; Therapy: 18Nov2015 to (Last Rx:40Las7798) Requested for: 18Nov2015 Ordered 2. Lisinopril 10 MG Oral Tablet; TAKE 1 TABLET BY MOUTH ONCE DAILY; Therapy: 20Tzt7685 to (Evaluate:78Ijr2655) Requested for: 98Qvy7325; Last Rx:20Pqi0981 Ordered 3. Metoclopramide HCl - 5 MG Oral Tablet; TAKE 1 TABLET BY MOUTH THREE TIMES DAILY WITH MEALS; Therapy: 10Sep2014 to (Evaluate:21Btm6345) Requested for: 51Poy0502; Last Rx:24Iiq6047 Ordered 4. Tylenol Extra Strength 500 MG Oral Tablet; Therapy: (Recorded:18Nov2015) to Recorded 5. Xarelto 15 MG Oral Tablet; TAKE 1 TABLET DAILY Requested for: 08Jan2016; Last Rx:08Jan2016 Ordered Allergies 1. Penicillins 2. Sulfa Drugs Social History 1. Former smoker: 0 - 10 pack years (V15.82) (Z87.891) Vitals Vital Signs [Data Includes: Current Encounter] Recorded: 46Tzh1678 10:31AM Blood Pressure 139 / 83 Heart Rate 54 Respiration 16 Temperature 98.6 F Weight 91.9 kg BMI Calculated 26.56 BSA Calculated 2.17 O2 Saturation 97 Physical Exam EYES:Pupils equal, round, reactive to light and accommodation. Extraocular muscles intact. Funduscopic exam benign. EARS:Tympanic membrane intact, cone of light noted. THROAT:No erythema, no lesion. HEART:Regular rate and rhythm without murmur, S3, S4, gallop, or rub. PMI nondisplaced. LUNGS:Clear to auscultation without egophony, wheeze, bronchial breath sounds, change in tactile fremitus. Assessment 1. Former smoker: 0 - 10 pack years (V15.82) (Z87.891) 2. Afib (427.31) (I48.91) 1. Atrial fibrillation with paroxysmal atrial fibrillation. Plan 1. Start patient on Coumadin. Time spent with patient: 15 minutes, all in discussion of blood thinners. Signatures Casey Berry II, D.OWilliam/fanyd-1 Electronically signed by : Casey Berry DO; Feb 11 2016 7:47AM FITTER / WELDER * Casey Berry II, DO - 12/11/2015 12:00 AM CDT Chief Complaint/Reason for Visit f/up ct History of Present Illness This is a 70-year-old male who recently underwent a stress test. The stress test showed no major abnormality, however, it was suggested of an aneurysm. 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 [place] that the CT scan would be a better follow up. Once the CT scan was performed, given the size, it was felt that the patient being of lower risk of this aneurysm, a 6 month follow up would be best. There were a 5 mm nodule which would also then follow up with this at that time. We did discuss with him about the stress test. We did discuss with him about the echo of the heart. Past Medical History 1. Afib (427.31) (I48.91) 2. Avitaminosis D (268.9) (E55.9) 3. Difficulty swallowing (787.20) (R13.10) 4. Dilated aortic root (447.71) (I77.810) 5. Denied: History of nicotine dependence 6. Paroxysmal tachycardia (427.2) (I47.9) 7. History of Vision Assessment Surgical History 1. History of Colonoscopy (Fiberoptic) Current Meds 1. Lidocaine 5 % External Ointment; use sparingly qid; Therapy: 18Nov2015 to (Last Rx:18Nov2015) Requested for: 18Nov2015 Ordered 2. Lisinopril 10 MG Oral Tablet; TAKE 1 TABLET BY MOUTH ONCE DAILY; Therapy: 37Bif7933 to (Evaluate:78Hio1479) Requested for: 55Ajq9561; Last Rx:79Nhv1625 Ordered 3. Metoclopramide HCl - 5 MG Oral Tablet; TAKE 1 TABLET BY MOUTH THREE TIMES DAILY WITH MEALS; Therapy: 10Sep2014 to (Evaluate:72Aiv1097) Requested for: 99Tkd3747; Last Rx:46Eml8894 Ordered 4. Tylenol Extra Strength 500 MG Oral Tablet; Therapy: (Recorded:18Nov2015) to Recorded 5. Xarelto TABS; Therapy: (Recorded:18Nov2015) to Recorded Allergies 1. Penicillins 2. Sulfa Drugs Social History 1. Former smoker: 0 - 10 pack years (V1.82) (Z87.891) Vitals Vital Signs [Data Includes: Current Encounter] Recorded: 11Dec2015 09:10AM Blood Pressure 116 / 72 Heart Rate 56 Respiration 16 Temperature 98.5 F Weight 91.7 kg BMI Calculated 26.51 BSA Calculated 2.17 Physical Exam Deferred. Assessment 1. Former smoker: 0 - 10 pack years (V15.82) (Z87.891) 1. Aortic aneurysm. 2. Nonspecific lung nodule. Plan 1. Former Smoker: Since tobacco use can have significant health risks, you are helping yourself and others stay healthy by no longer smoking.; Status:Complete; Done: 11Dec2015 1. Patient will need a follow up CT scan in six months. 2. No other changes in medications at this time. We will monitor blood pressures. I explained to him that this is the most likely cause of aggravation of an aneurysm. Signatures Casey Berry II, D.OWilliam/pj-16 Electronically signed by : Casey Berry DO; Dec 30 2015 8:19AM FITTER / WELDER * Casey Berry II, DO - 11/18/2015 12:00 AM CDT Chief Complaint/Reason for Visit ER follow up History of Present Illness This is a 69-year-old male who has a long history of paroxysmal tachycardia. He recently had an episode of paroxysmal tachycardia. He went in to the ER in [place] and found that he had a flutter with a rate of about 150 to 300. He was held overnight and was placed on Beta raya and Xarelto. He is coming in today for follow up. No underlying etiology yet known. No fevers, chills or night sweats. He has not had a lot of caffeine. Past Medical History 1. Avitaminosis D (268.9) (E55.9) 2. Difficulty swallowing (787.20) (R13.10) 3. Denied: History of nicotine dependence 4. Paroxysmal tachycardia (427.2) (I47.9) 5. History of Vision Assessment Surgical History 1. History of Colonoscopy (Fiberoptic) Current Meds 1. Azelastine HCl - 0.1 % Nasal Solution; INHALE ONE SPRAY TWICE DAILY PRN; Therapy: 96Oti3610 to Requested for: 03Jan2014 Recorded 2. Lisinopril 10 MG Oral Tablet; TAKE 1 TABLET BY MOUTH ONCE DAILY; Therapy: 45Smr7462 to (Evaluate:92Dxl8732) Requested for: 95Stc5418; Last Rx:84Nei4871 Ordered 3. Metoclopramide HCl - 5 MG Oral Tablet; TAKE 1 TABLET BY MOUTH THRE E TIMES DAILY WITH MEALS; Therapy: 10Sep2014 to (Evaluate:42Xdi4624) Requested for: 73Nup7823; Last Rx:05Tfn2565 Ordered 4. Metoprolol Tartrate 25 MG Oral Tablet; Therapy: (Recorded:18Nov2015) to Recorded 5. Tylenol Extra Strength 500 MG Oral Tablet; Therapy: (Recorded:18Nov2015) to Recorded 6. Xarelto TABS; Therapy: (Recorded:18Nov2015) to Recorded Allergies 1. Penicillins 2. Sulfa Drugs Social History 1. Former smoker: 0 - 10 pack years (V15.82) (Z87.091) Review of Systems CONSTITUTIONAL:Denies weight loss, weight gain, fevers, chills, or night sweats. HEENT:Denies blurred vision, double vision, earache, sore throat, runny nose, congestion. CARDIOVASCULAR:See history of chief complaint. RESPIRATORY:Denies cough, congestion, runny nose. GI:Denies nausea, vomiting, diarrhea, constipation, melena, hematochezia, weight loss, weight gain. MS:Denies aches, pains. NEURO/PSYCH:Denies stroke, seizure, anxiety, or depression. ENDOCRINE:Denies polyuria, polydipsia, polyphagia, heat or cold intolerance, unusual alopecia. HEMATOLOGIC:Denies blood dyscrasias or anemia. :Denies dysuria, polyuria, hematuria. Vitals Vital Signs [Data Includes: Current Encounter] Recorded: 18Nov2015 11:20AM Blood Pressure 121 / 75 Heart Rate 54 Respiration 16 Temperature 96 F Weight 89.7 kg BMI Calculated 25.93 BSA Calculated 2.15 O2 Saturation 97 Physical Exam EYES:Pupils equal, round, reactive to light and accommodation. Extraocular muscles intact. Funduscopic exam benign. EARS:Tympanic membrane intact, cone of light noted. THROAT:No erythema, no lesion. HEART:Irregular rate and rhythm without murmur, S3, [...] Romberg negative. Gait normal. Cerebellar functions intact. Assessment 1. Former smoker: 0 - 10 pack years (V15.82) (Z87.891) 2. Afib (427.31) (I48.91) 1. New onset of atrial fibrillation. Plan 1. Drawing Fee; Status:Complete; Done: 18Nov2015 2. ECG; Status:Active; Requested for:18Nov2015; 3. NM Cardiac Rest And Stress Gated - 4008; Status:Active; Requested for:18Nov2015; 4. Lidocaine 5 % External Ointment; use sparingly qid 1. CBC, comp, TSH, T4, sed rate, B12, echocardiogram, Cardiolite. After the testing, if everything is normal, we will set him up to see Electrophysiology. If some abnormality, we will fix this and then see what the next step overall is. Signatures Casey Berry II, DWilliamOWilliam/pj-12 Electronically signed by : Casey Berry DO; Nov 26 2015 8:06AM FITTER / WELDER documented in this encounter H&P Notes * Casey Berry II, DO - 08/28/2015 12:00 AM CST Chief Complaint/Reason for Visit Routine physical. History of Present Illness This is a 69-year-old male who is coming in for a routine physical. His only major complaint is foot drag and difficulty walking on his tiptoes. He did fill out his paperwork. Past Medical History 1. Avitaminosis D (268.9) (E55.9) 2. Difficulty swallowing (787.20) (R13.10) 3. Denied: History of nicotine dependence 4. Paroxysmal tachycardia (427.2) (I47.9) 5. History of Vision Assessment 1.Hypertension. Surgical History 1. History of Colonoscopy (Fiberoptic) ?? due 02/04/2020 Current Meds 1. Advil TABS; 2 TABS NEEDED; Therapy: (Recorded:03Jan2014) to Recorded 2. Azelastine HCl - 0.1 % Nasal Solution; INHALE ONE SPRAY TWICE DAILY PRN; Therapy: 90Aun7430 to Requested for: 03Jan2014 Recorded 3. Lisinopril 10 MG Oral Tablet; TAKE 1 TABLET BY MOUTH ONCE DAILY; Therapy: 52Lbh4572 to (Evaluate:70Xtz2500) Requested for: 97Zfv8058; Last Rx:74Xco1110 Ordered 4. Metoclopramide HCl - 5 MG Oral Tablet; TAKE 1 TABLET BY MOUTH THRE E TIMES DAILY WITH MEALS; Therapy: 10Sep2014 to (Evaluate:52Zkj5353) Requested for: 67Efx9306; Last Rx:[id number] Ordered 5. Vitamin D3 1000 UNIT Oral Tablet; TAKE 1 TABLET DAILY; Therapy: 10Sep2014 to Recorded Allergies 1. Penicillins 2. Sulfa Drugs Social History 1. Former smoker: 0 - 10 pack years (V15.82) (Z87.891) HEALTH CARE MAINTENANCE: Tetanus in 2013. Colonoscopy in 2009. Pneumovax in 2009. Review of Systems CONSTITUTIONAL:Denies weight loss, weight gain, fevers, chills, or night sweats. HEENT:Denies blurred vision, double vision, earache, sore throat, runny nose, congestion. CARDIOVASCULAR:Denies chest pain, palpitations, dyspnea on exertion. RESPIRATORY:Denies cough, congestion, runny nose. GI:Denies nausea, vomiting, diarrhea, constipation, melena, hematochezia, weight loss, weight gain. MS:Has weakness in the right foot. NEURO/PSYCH:Denies stroke, seizure, anxiety, or depression. ENDOCRINE:Denies polyuria, polydipsia, polyphagia, heat or cold intolerance, unusual alopecia. HEMATOLOGIC:Denies blood dyscrasias or anemia. :Denies dysuria, polyuria, hematuria. Vitals Vital Signs [Data Includes: Current Encounter] Recorded: 28Aug2015 08:32AM Blood Pressure 134 / 90 Heart Rate 66 Respiration 20 Temperature 98.4 F Height 186 cm Weight 90.2 kg BMI Calculated 26.07 BSA Calculated 2.15 2+ Falls or 1 Fall with injury [...] Babinski's absent. Negative ankle clonus. Romberg negative. Patient does have difficulty with tiptoe due to his right foot drag but not a true drop. Cerebellar functions intact. SKIN:Warm and dry without rash. GENITALIA:No mass, lesions, or discharge. RECTAL:Heme negative. Prostate firm, no masses, nontender. Assessment 1. Former smoker: 0 - 10 pack years (V15.82) (Z87.891) 2. Encounter for preventive health examination (V70.0) (Z00.00) 1.Hypertension. Plan 1. Ciprofloxacin HCl - 500 MG Oral Tablet; TAKE 1 TABLET EVERY 12 HOURS DAILY 2. Prevnar 13 Intramuscular Suspension 3. Former Smoker: Since tobacco use can have significant health risks, you are helping yourself and others stay healthy by no longer smoking.; Status:Complete; Done: 20Ybq6550 1.Prevnar shot. 2.CBC, vitamin D, PSA, comp, and lipid. 3.Did discuss with patient about his foot. Signatures Casey Berry II, D.OWilliam/jaj-08 Electronically signed by : Casey Berry DO; Sep 19 2015 8:13AM FITTER / WELDER documented in this encounter Procedure Notes * Casey Berry II, DO - 11/26/2015 12:00 AM CDTAssociated Order(s): NUCLEAR MEDICINE NUCLEAR MEDICINE CRISTIAN BLEDSOE : 1945 HX: [id number] DOS: 11/26/2015 Lexiscan portion of Lexiscan Cardiolite. BASELINE EKG: Shows no abnormality of note. PROTOCOL: Patient was given Lexiscan and Cardiolite. He had no major complaints. EKG CHANGES NOTED DURING TEST: EKG showed no changes. IMPRESSION: 1. Normal Lexiscan portion of Lexiscan Cardiolite. RECOMMENDATIONS: We will await radiologic portion of test. Casey Berry II, D.O./jaj-23 Electronically signed by:Casey Berry DO Dec 03 2015 7:45AM FITTER / WELDER documented in this encounter Miscellaneous Notes * Letter - Casey Berry II, DO - 09/09/2015 12:00 AM CST I have noticed that the lab work that I had previously ordered for you has yet to be completed. In order to better serve your healthcare needs, I am requesting that you come into our Lab Department within the next two weeks to complete your lab work. If for some reason you are not able to complete your lab work within this time frame or if you have any questions, please give my office a call so we can make other accommodations for you. If you have had this lab work done within the last week, please disregard this letter. You are due for a Peripheral smear and PSA at this time. Please call if you have any questions. Casey Berry DO [facility] Electronically signed by:DEYANIRA FRANCOIS Sep 09 2015 11:25AM FITTER / WELDER documented in this encounter Plan of Treatment Not on file documented as of this encounter Procedures Procedure Name Priority Date/Time Associated Diagnosis Comments NUCLEAR MEDICINE 11/26/2015 documented in this encounter Results * NUCLEAR MEDICINE (11/26/2015) Anatomical Region Laterality Modality Other Narrative Procedure Note Casey Berry II, DO - 11/26/2015 12:00 AM CDT NUCLEAR MEDICINE CIRSTIAN BLEDSOE : 1945 HX: [id number] DOS: 11/26/2015 Lexiscan portion of Lexiscan Cardiolite. BASELINE EKG: Shows no abnormality of note. PROTOCOL: Patient was given Lexiscan and Cardiolite. He had no majorcomplaints. EKG CHANGES NOTED DURING TEST: EKG showed no changes. IMPRESSION: 1. Normal Lexiscan portion of Lexiscan Cardiolite. RECOMMENDATIONS: We will await radiologic portion of test. Casey Berry II, D.OiWlliam/jaj-23 Electronically signed by:Casey Berry DO Dec 03 2015 7:45AM FITTER / WELDER Casey Berry II, DO RAD NUCLEAR M EDICINE documented in this encounter Visit Diagnoses Not on filedocumented in this encounter Care Teams Personal Financial Advisor Relationship Specialty Start Date End Date Casey Berry II, DO PCP - General 11/22/06 08/17/19 Stephani Aleman MD PCP - General Family Medicine 08/18/19 09/16/20 Bianka Loera SMOKE JUMPER SUPERVISOR [address] [place] [id number] PCP - General Nurse Practitioner Family 09/17/2001/10 Desiree Patrick MD [address] [place] [address] PCP - General Electrophysiology 02/23/22 03/09/22 Desiree Patrick MD [address] [place] [address] 08/09/17 Farrah Nicole APRN,ALEX [address] [place] [address] [place] [address] 08/09/17 Bry Echevarria MD [address] [place] [address] 08/09/17 Casey Berry II, DO 08/09/17 Shruti Vergara RN RN Registered Nurse 08/27/20 documented as of this encounter Additional Source Comments PLEASE NOTE: Replies to this message will not be received.[facility]
--- OUTSIDE RECORDS SUMMARY | 2023-08-16 11:22 | XMS_ITS | Encounter Summary ---
Author Name Unknown Organization [facility] Address [address] [place] [address] Care Team Providers Care Legal Billing Analyst Name Role Phone Jamal CARLISLE DO, [place] William Primary Care Provide r Unavailable Desiree Patrick MD Unavailable Farrah Nicole APRN,CHIP FRIER Unavailable Bry Echevarria MD Unavailable [phone] Jamal CARLISLE DO, [place] William Unavailable Unav Stephani Diaz MD Primary Care Provider Shruti Vergara RN Unavailable Unavailable Bianka Loera CNP Primary Care Provider Desiree Patrick MD Primary Care P rovider Encounter Details Date Type Department Care Team Description 01/28/2016 Historical Conversion [facility] Family Medicine [address] [place] [address] Social History Tobacco Use Types Packs/Day Years Used Date Smoking Tobacco: Former Cigarettes Q uit: 1979 Alcohol Use Standard Drinks/Week Comments Yes 0 (1 standard drink = 0.6 oz pur e alcohol) occasional Sex and Gender Information Value Date Recorded Sex Assigned at Not on file Gender Identity Not on file Sexual Orientation Not on file documented as of this encounter Last Filed Vital Signs Vital Sign Reading Time Taken Comments Blood Pressure 139/83 01/28/2016 12:00 AM CDT Pulse - - Temperature - - Respiratory Rate - - Oxygen Saturation - - Inhaled Oxygen Concentration - - Weight 91.9 kg (202 lb 9.6 oz) 01/28/2016 12:00 AM CDT Height - - Body Mass Index 26.73 11/15/2015 11:41 PM CDT documented in this [...] No 11/15/2015 documented as of this encounter Procedure Notes * [facility], GENERICPROVIDER - 01/28/2016 12:00 AM CDTAssociated Order(s): ANTICOAGULATION Name: CRISTIAN BLEDSOE : 1945 DOS: 01/28/2016 Cristian ia a 70 [address] old patient of Dr. Casey Berry and a new patient to the anticoagulation clinic. He is on anticoagulation therapy for atrial fibrillation and is new to Coumadin. He has been taking Xeralto; instructed to continue this for 3 days then stop. His requested therapeutic INR range is 2.0-3.0. He has no reported history of bleeding. Patient is 6' 1 and approximately 200 lbs. Patient denies any damily history of bleeding or stroke. He lives at home with another individual. Reports being a former smoker. Smoked 1 pack/day for approximately 10 years; quit nearly 27 years ago. Reports having 1-2 beers daily. Patient is allergic to penicillin and sulfa drugs. Prescription medications include lidocaine topical ointment PRN, Lisinopril 10 mg daily in AM, Xeralto 15 mg daily, Reglan 5 mg TID PRN, and [id number] mg BID for pain in right knee. Diet seems consistent. Reports having regular servings of greens during the summer as he is apart of a community garden. Drinks green tea on occasion; encouraged to avoid consumption of this unless directed otherwise while taking Coumadin. He appears capable of keeping clinic appointments and taking his medications as directed. He is able to state the reasons he is on anticoagulation therapy, its actiosn, and the importance of taking the medication at a regular time every day. We discussed the INR test, his therapeutic range of 2.0-3.0, and the importance of getting his tests done on a regular basis. He is able to identify signs and symptoms of bleeding and thromboembolitic events. He was strongly encouraged to notify [facility] staff with any illness, injurt, or change in physical status such as surgery, dental work, or changes in prescription and over the counter medications, and travel plans. Vitamin K food list was provided. he understands not to use aspirin or NSAIDS. A coumadin identification card was provided and he was encouraged to inform all providers that he is on Coumadin therapy. Patient reports he is feeling well today. He exercises regularly by walking down twice daily a mileeach time. Has had falls in the past as he has spinal stenosis that affects right leg, this causes leg to drag and occasionally get caught on surfaces and he stumbles. He was encouraged to avoid falls as coumadin increases the risks of bleeds with injury. INRwas drawn today with a result of 1.2. Pat ient instructed to take 5 mg of Coumdain daily and recheck Wednesday (01/31/16). Instructed to continueXeralto today, , and then discontinue this per protocol. Electronically signed by:Razia Duarte RN Jan 28 2016 12:46PM BREWERY CELLAR WORKER documented in this encounter Plan of Treatment Not on file documented as of this encounter Procedures Procedure Name Priority Date/Time Associated Diagnosis Comments ANTICOAGULATION 01/28/2016 documented in this encounter Results * ANTICOAGULATION (01/28/2016) Narrative Procedure Note [facility], MICHELLEPROVIDER - 01/28/2016 12:00 AM CDT Name: CRISTIAN BLEDSOE : 1945 DOS: 01/28/2016 Cristian ia a [address] Casey Berry and a new patient to theanticoagulation clinic. He is on anticoagulation therapy for atrialfibrillation and is new to Coumadin. He has been taking Xeralto;instructed to continue this for 3 days then stop. His requestedtherapeutic INR range is 2.0-3.0. He has no reported history of bleeding.Patient is 6' 1 and approximately 200 lbs. Patient denies any [facility] history of bleeding or stroke. He lives at homewith another individual. Reports being a former smoker. Smoked 1 pack/dayfor approximately 10 years; quit nearly 27 years ago. Reports having 1-2beers daily. Patient is allergic to penicillin and sulfa drugs. Prescriptionmedications include lidocaine topical ointment PRN, Lisinopril 10 mg dailyin AM, Xeralto 15 mg daily, Reglan 5 mg TID PRN, and tylenol 500 mg BIDfor pain in right knee. Diet seems consistent. Reports having regular servings of greens duringthe summer as he is apart of a [email or web address]. Drinks green tea onoccasion; encouraged to avoid consumption of this unless directedotherwise while taking Coumadin. He appears capable of keeping clinic appointments and taking hismedications as directed. He is able to state the reasons he is on anticoagulation therapy, itsactiosn, and the importance of taking the medication at a regular timeevery day. We discussed the INR test, his therapeutic range of 2.0-3.0, and theimportance of getting his tests done on a regular basis. He is able to identify signs and symptoms of bleeding and thromboemboliticevents. He was strongly encouraged to notify [facility] staff with any illness,injurt, or change in physical status such as surgery, dental work, orchanges in prescription and over the counter medications, and travelplans. Vitamin K food list was provided. he understands not to use aspirin orNSAIDS. A coumadin identification card was provided and he was encouragedto inform all providers that he is on Coumadin therapy. Patient reports he is feeling well today. He exercises regularly bywalking down twice daily a mile each time. Has had falls in the past steven has spinal stenosis that affects right leg, this causes leg to drag andoccasionally get caught on surfaces and he stumbles. He was encouraged toavoid falls as coumadin increases the risks of bleeds with injury. INRwasdrawn today with a result of 1.2. Patient instructed to take 5 mg ofCoumdain daily and recheck Wednesday (01/31/16). Instructed to continueXeralto , , and then discontinue this per protocol. Electronically signed by:Razia Duarte RN Jan 28 2016 12:46PM BREWERY CELLAR WORKER Genericprovider [facility] OTHER documented in this encounter Visit Diagnoses Not on filedocumented in this encounter Care Teams Legal Billing Analyst Relationship Specialty Start Date End Date Casey Berry II, DO PCP - General 11/22/06 08/17/19 Stephani Aleman MD PCP - General Family Medicine 08/18/19 09/16/20 Bianka Loera EQUIPMENT OR MACHINERY CLEANER [address] [place] [address] PCP - General Nurse Practitioner Family 09/17/2001/10 Desiree Patrick MD [address] [place] [address] PCP - General Electrophysiology 02/23/22 03/09/22 Desiree Patrick MD [address] [place] [address] 08/09/17 Farrah Nicole APRN,CHIP FRIER [address] [place] [address] 08/09/17 Bry Echevarria MD [address] [place] [id number] 08/09/17 Casey Berry II, DO 08/09/17 Shruti Vergara RN RN Registered Nurse 08/27/20 documented as of this encounter Additional Source Comments PLEASE NOTE: Replies to this message will not be received.[facility]
--- OUTSIDE RECORDS SUMMARY | 2023-08-16 11:22 | XMS_ITS | Encounter Summary ---
Author Name Unknown Organization [facility] Address [address] [place] [address] Care Team Providers Care Floor Representative Name Role Phone Jamal CARLISLE DO, [place] William Primary Care Provide r Unavailable Desiree Patrick MD Unavailable Farrah Nicole APRN,OUTREACH WORKER Unavailable Bry Echevarria MD Unavailable Jamal CARLISLE DO, [place] William Unavailable Unav Stephani Diaz MD Primary Care Provider Shruti Vergara RN Unavailable Unavailable Bianka Loera CNP Primary Care Provider [phone] Desiree Patrick MD Primary Care P rovider Encounter Details Date Type Department Care Team Description 11/19/2015 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 Mechanical 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 PROCEDURE: Transthoracic, two-dimensional, and M-mode echocardiography was performed from the parasternal, apical, and subcostal windows. Simultaneous pulsed-wave, continuous wave and color flow Doppler was performed. IMAGE QUALITY: Good. ECG RHYTHM: Sinus. RESULTS LEFT ATRIUM: Dilated measuring 43 mm. MITRAL VALVE: Appears structurally normal. Mild mitral insufficiency. LEFT VENTRICLE: Appears normal in diameter. There is asymmetric septal hypertrophy. Wall motion appears normal. Left ventricular ejection fraction is visually estimated at 55%. Diastolic function is indeterminate. AORTIC VALVE: Tricommissural. Mild insufficiency. No stenosis. AORTA: Appears dilated measuring 41 mm at the root and 43 mm in the ascending portion. RIGHT ATRIUM: Normal. TRICUSPID VALVE: Structurally normal. Trace tricuspid insufficiency. RIGHT VENTRICLE: Normal in diameter and function. PULMONIC VALVE: Mild insufficiency. PERICARDIUM: No effusion. CONCLUSION: 1. Normal left ventricular wall motion. 2. Left ventricular ejection fraction is visually estimated at 60%. 3. Mild mitral insufficiency. 4. Mild aortic insufficiency. 5. Trace tricuspid insufficiency. 6. Dilated aorta. 7. Dilated left atrium. 8. No prior studies for comparison. Note: This study was performed by [facility]. Only the interpretation wasperformed at the [facility] [place]. Electronically signed Dionisio Meneses MD, [facility] Director Of Casework Department , 04:04 P A vd/Doc#: [id number] cc: Adult Normal Value Adult Patient Values AORTIC VALVE Sinuses of Valsalva M < 38 mm W < 34 mm 41 Prox. Acs AO M < 35 mm W < 32 mm 43 LEFT ATRIUM M < 30-40 mm W < 27-38 43 LA VOLUME INDEX < 35 ml/m2 -- LEFT VENTRICULAR INTERNAL DIMENSION Diastole Systole M < 42-58 mm W < 38-52 41 36 INTERVENTRICULAR SEPTUM Diastole < 11 mm 18 LEFT VENTRICULAR POSTERIOR WALL Diastole < 11 mm 14 DOPPLER EF % Pulmonary V: PI PS Velocity M/S mmHg LVOT/ Annul 2.3 cm Aortic V: AI Peak Velocity PW m/s P1/2 T Mean Grad Peak Grad mmHg CW m/s Mitral V: MR EROA cm2 Reg. Vol. ml Vena Cont cm MS _ Valve Area _ cm2 Mn Grad mmHg Tricuspid V: TR Velocity 2.5 M/S 26(+RAP) mmHgpp KAR[place]INA cm?? Diastolic Fx: MV E/A MV dt ms E' sept 5.3 cm/sec IVRT ms E/e' 10.8 E' lat 6.8 cm/sec IMPRESSION: Patient height: 186 cm Patient weight: 89.7 kg Blood pressure: 126/75 Previous study: -- Ship Scraper: Lisa documented in this encounter Plan of Treatment Not on file documented as of this encounter Procedures Procedure Name Priority Date/Time Associated Diagnosis Comments ECHOCARDIOGRAM TRANSTHORACIC ADULT WITH OR WITHOUT CONTRAST 11/19/2015 documented in this encounter Results * ECHOCARDIOGRAM TRANSTHORACIC ADULT WITH OR WITHOUT CONTRAST (11/19/2015) Anatomical Region Laterality Modality Other 11/19/2015 Narrative Procedure Note Dionisio Meneses MD - 11/19/2015 12:00 AM CDT PERFORMED BY: [facility] [employer] [place], [place] SITE: [place], [place] INTERPRETED BY: [facility] [place], [place] TRANSTHORACIC ECHOCARDIOGRAM REPORT REFERRING DIAGNOSIS: Atrial fibrillation. PROCEDURE: Transthoracic, two-dimensional, and M-mode echocardiographywas performed from the parasternal, apical, and subcostal windows.Simultaneous pulsed-wave, continuous wave and color flow Doppler wasperformed. IMAGE QUALITY: Good. ECG RHYTHM: Sinus. RESULTS LEFT ATRIUM: Dilated measuring 43 mm. MITRAL VALVE: Appears structurally normal. Mild mitral insufficiency. LEFT VENTRICLE: Appears normal in diameter. There is asymmetric septalhypertrophy. Wall motion appears normal. Left ventricular ejectionfraction is visually estimated at 55%. Diastolic function isindeterminate. AORTIC VALVE: Tricommissural. Mild insufficiency. No stenosis. AORTA: Appears dilated measuring 41 mm at the root and 43 mm in theascending portion. RIGHT ATRIUM: Normal. TRICUSPID VALVE: Structurally normal. Trace tricuspid insufficiency. RIGHT VENTRICLE: Normal in diameter and function. PULMONIC VALVE: Mild insufficiency. PERICARDIUM: No effusion. CONCLUSION: 1. Normal left ventricular wall motion. 2. Left ventricular ejection fraction is visually estimated at 60%. 3. Mild mitral insufficiency. 4. Mild aortic insufficiency. 5. Trace tricuspid insufficiency. 6. Dilated aorta. 7. Dilated left atrium. 8. No prior studies for comparison. Note: This study was performed by [facility].Only the interpretation was performed at the [facility]. Electronically signed Dionisio Meneses MD, [facility] Director Of Casework Department , 04:04 P A vd/Doc#: [id number] cc: Adult Normal Value Adult Patient Values AORTIC VALVE Sinuses of Valsalva M < 38 mm W < 34 mm 41 Prox. Acs AO M < 35 mm W < 32 mm 43 LEFT ATRIUM M < 30-40 mm W < 27-38 43 LA VOLUME INDEX < 35 ml/m2 -- LEFT VENTRICULAR INTERNAL DIMENSION Diastole Systole M < 42-58 mm W < 38-52 41 36 INTERVENTRICULAR SEPTUM Diastole < 11 mm 18 LEFT VENTRICULAR POSTERIOR WALL Diastole < 11 mm 14 DOPPLER EF % Pulmonary V: PI PS Velocity M/S mmHg LVOT/ Annul 2.3 cm Aortic V: AI Peak Velocity PW m/s P1/2 T Mean Grad Peak Grad mmHg CW m/s Mitral V: MR EROA cm2 Reg. Vol. ml Vena Cont cm MS _ Valve Area _ cm2 Mn Grad mmHg Tricuspid V: TR Velocity 2.5 M/S 26(+RAP) mmHgpp AVAcm?? Diastolic Fx: MV E/A MV dt ms E' sept 5.3 cm/sec IVRT msE/e' 10.8 E' lat 6.8 cm/sec IMPRESSION: Patient height: 186 cm Patient weight: 89.7 kg Blood pressure: 126/75 Previous study: -- Ship Scraper: Lisa Dionisio Meneses MD [employer] documented in this encounter Visit Diagnoses Not on filedocumented in this encounter Care Teams Floor Representative Relationship Specialty Start Date End Date Casey Berry II, DO PCP - General 11/22/06 08/17/19 Stephani Aleman MD PCP - General Family Medicine 08/18/19 09/16/20 Bianka Loera PRODUCT CONTROL AND LOGISTICS ANALYST [address] [place] [phone] PCP - General Nurse Practitioner Family 09/17/20 712/31 Desiree Patrick MD [address] [place] [address] PCP - General Electrophysiology 02/23/22 03/09/22 Desiree Patrick MD [address] [place] [address] 08/09/17 Farrah Nicole APRN,OUTREACH WORKER [address] [place] [phone] 08/09/17 Bry Echevarria MD [address] [place] [phone] 08/09/17 Casey Berry II, DO 08/09/17 Shruti Vergara RN RN Registered Nurse 08/27/20 documented as of this encounter Additional Source Comments PLEASE NOTE: Replies to this message will not be received.[facility] and [facility]
--- OUTSIDE RECORDS SUMMARY | 2023-08-16 11:22 | XMS_ITS | Encounter Summary ---
Author Name Unknown Organization [facility] Address [address] [place] [address] Care Team Providers Care Configuration Management Manager Name Role Phone Jamal CARLISLE DO, Robert William Primary Care Provide r Unavailable Desiree Patrick MD Unavailable Farrah Nicole APRN,RAIL WALKER Unavailable Bry Echevarria MD Unavailable Jamal CARLISLE DO, Robert William Unavailable Unav xiable Stephani Aleman MD Primary Care Provider [phone] Shruti Vergara RN Unavailable Unavailable Bianka Loera CNP Primary Care Provider [phone] Desiree Patrick MD Primary Care P rovider Encounter Details Date Type Department Care Team Description 01/31/2016 Historical Conversion [facility] Family Medicine [address] [place] [address] [id number] Social History Tobacco Use Types Packs/Day Years [...] as of this encounter Procedure Notes * [facility], MICHELLEPROVIBRANDO - 01/14/2017 12:00 AM CDTAssociated Order(s): ANTICOAGULATION [facility] Name: CRISTIAN BLEDSOE : 1945 DOS: 01/14/2017 This is a patient of Dr. Berry. He is here today for an anticoagulation assessment and INR check fora diagnosis of atrial fibrillation. Patient states that he has been feeling well. He reports that he is waiting to hear back from the cancer center but believes that he will still be starting radiation at the end of January. Patient reports that he is now using a Bi-pap machine at night time. INR tested today is therapeutic at 2.4 with the recommended range of 2.0 to 3.0. Patient will continue Coumadin at 2.5 mg on Wednesdays and 5 mg all other days with an INR recheck in three weeks per patient request. Patient verbalizes understanding. Electronically signed by:Tiffani Carrero RN Jan 14 2017 11:11AM SPEECH AND HEARING DIRECTOR * [facility] MIC[facility]PROV[facility]ANDO - 12/23/2016 12:00 AM CDTAssociated Order(s): ANTICOAGULATION [facility] Name: CRISTIAN BLEDSOE : 1945 DOS: 12/23/2016 This is a patient of Dr. Berry. He is here today for an anticoagulation assessment and INR check fora diagnosis of atrial fibrillation. Patient states that he has been feeling well. He reports that he met with Dr. Conroy at the cancer center and will begin radiation on January 06. The patient statesthat he had his first Lupron injection last week and has not noticed any side effects from the injection. Patient reports that he had a sleep study and is waiting for results. He states that Dr. Cruzdicated that he may end up needing a C-Pap. INR tested today is therapeutic at 2.3 with the recommended range of 2.0 to 3.0. Patient will continue Coumadin at 2.5 mg on Wednesdays and 5 mg all other days with an INR recheck in three weeks per patient request. Patient verbalizes understanding. Electronically signed by:Tiffani Carrero RN Dec 23 2016 11:30AM SPEECH AND HEARING DIRECTOR * [facility], GENERICPROVIDER - 12/02/2016 12:00 AM CDTAssociated Order(s): ANTICOAGULATION [facility] Name: CRISTIAN BLEDSOE : 1945 DOS: 12/02/2016 This is a patient of Dr. Berry. He is here today for an anticoagulation assessment and INR check fora diagnosis of atrial fibrillation. Patient states that he has been feeling well. He reports that he will met with Dr. Conroy at the cancer center and has an appointment there on January 06 for his radiation simulation testing and will begin daily radiation on January 09 for two months. Patient deniesany medication changes. INR tested today is therapeutic at 3.0 with the recommended range of 2.0 to3.0. Patient will adjust Coumadin slightly to 2.5 mg on Wednesdays and 5 mg all other days with an INR recheck in three weeks. Patient verbalizes understanding. Electronically signed by:Tiffani Carrero RN Dec 02 2016 4:10PM SPEECH AND HEARING DIRECTOR * [facility], GENERICPROVIDER - 11/17/2016 12:00 AM CDTAssociated Order(s): ANTICOAGULATION [facility] Name: CRISTIAN BLEDSOE : 1945 DOS: 11/17/2016 This is a patient of Dr. Berry. He is here today for an anticoagulation assessment and INR check fora diagnosis of atrial fibrillation. Patient states that he has been feeling well. He reports that he will be meeting with Dr. Conroy at the cancer center to find out information regarding radiation therapy. He states that he has an appointment next week with an stove cleaner to discuss a possible ablation. Patient denies any medication changes. INR tested today is therapeutic at 2.7 with the recommended range of 2.0 to 3.0. Patient will continue Coumadin at 5 mg daily with an INR recheck in two weeks. Patient verbalizes understanding. Electronically signed by:Tiffani Carrero RN Nov 17 2016 9:36AM SPEECH AND HEARING DIRECTOR * [facility] GENERIC[facility] - 11/10/2016 12:00 AM CDTAssociated Order(s): ANTICOAGULATION Anticoagulation [facility] Name: CRISTIAN BLEDSOE : 1945 DOS: 11/10/2016 This is a patient of Dr. Berry. He is here today for an anticoagulation assessment and INR check fora diagnosis of atrial fibrillation. Patient states that he has been feeling well. He reports that he has been diagnosis with prostate cancer and will be meeting with Dr. Conroy at the cancer center to find out information regarding radiation therapy. Patient denies any medication changes. INR tested today is elevated at 3.6 with the recommended range of 2.0 to 3.0. Patient will adjust Coumadin with a hold today (5/), then take 5 mg daily with an INR recheck in one week. Patient verbalizes understanding. Electronically signed by:Tiffani Carrero RN Nov 10 2016 2:41PM SPEECH AND HEARING DIRECTOR * [facility] - 10/29/2016 12:00 AM CDTAssociated Order(s): ANTICOAGULATION Anticoagulation [facility] Name: CRISTIAN BLEDSOE : 1945 DOS: 10/29/2016 This is a patient of Dr. Berry. He is here today for an anticoagulation assessment and INR check fora diagnosis of atrial fibrillation. Patient states that he had his prostate biopsy last Wednesday and resumed his Coumadin on Wednesday. He reports that he mistakenly took Coumadin at 5 mg on Wednesday instead of 7.5 mg. INR tested today is 1.9 with the recommended range of 2.0 to 3.0. Patient will continue Coumadin at his regular dose of 7.5 mg Mondays, Fridays and 5 mg all other days with a recheck intwo weeks. Patient verbalizes understanding. Electronically signed by:Tiffani Carrero RN Oct 29 2016 3:44PM SPEECH AND HEARING DIRECTOR * MICHELLE AUSTINPROLUBNA - 10/23/2016 12:00 AM CDTAssociated Order(s): ANTICOAGULATION [facility] Name: CRISTIAN BLEDSOE : 1945 DOS: 10/23/2016 This is a patient of Dr. Berry. He is taking anticoagulation for a diagnosis of atrial fibrillation.He is scheduled for a prostate biopsy today at the [facility] with Dr. Maloney. Patient had his INR checked in the [facility] lab prior to his procedure today. A call was placed to the patient. He states that he followed Dr. Ang directions and has held Coumadin for 5 days prior to procedure and has taking Lovenox 100 mg once daily for 4 days prior to procedure. INR tested today is 1.2 with the recommended range of 2.0 to 3.0. Patient will resume Coumadin according to his discharge instructions from Dr. Maloney. He will resume at his normal dose of Coumadin at 7.5 mg Wednesday, Wednesday and5 mg all other days. He will recheck INR one week after restarting Coumadin. Patient and his verbalize understanding. Electronically signed by:Tiffani Carrero RN Oct 26 2016 9:49AM SPEECH AND HEARING DIRECTOR * MICHELLE AUSTINPROVIDER - 10/13/2016 12:00 AM CDTAssociated Order(s): ANTICOAGULATION [facility] Name: CRISTIAN BLEDSOE : 1945 DOS: 10/13/2016 This is a patient of Dr. Berry. He is here today for Lovenox teaching. The patient is accompanied byhis today. He is taking anticoagulation for a diagnosis of atrial fibrillation. He is scheduled for a prostate biopsy on October 23. Patient is following the direction of Dr. Berry regarding his Hold of Coumadin and use of Lovenox prior to procedure. Patient states that Dr. Berry has instructed him to Hold Coumadin for 5 days prior to procedure and to administer Lovenox 100 mg once daily for 4days prior to procedure. Patient and his state that they are not familiar with Lovenox injections. Lovenox teaching guide was reviewed and sent home with patient. The patient and his verbalize understanding regarding the process of administering Lovenox. The patient will have his INR checked at the [facility] prior to his biopsy which is scheduled there. After procedure he will follow discharge instructions from Dr. Maloney in regards to when it is safe to resume Coumadin. Patient will resume at his regular dose of Coumadin at 7.5 mg Wednesday, Wednesday and 5 mg all other days. He will recheck INR one week after restarting Coumadin. Patient and his verbalize understanding. Electronically signed by:Tiffani Carrero RN Oct 13 2016 12:13PM SPEECH AND HEARING DIRECTOR AMENDMENTS: 1. Patient states that he was in the [facility] ER on October 08 with a rapid heart rate due to an atrial flutter episode. He states that his heart rate was in the 140's to 180's and was given IV diltiazem along with some other medications to return him to a regular rhythm. He reports that he had his INR checked in the ER with a result of 2.6 with the recommended range of 2.0 to 3.0. Electronically signed by:Tiffani Carrero RN Oct 13 2016 12:36PM SPEECH AND HEARING DIRECTOR * [facility] ROSMERY, GENERICPROVIDER - 09/15/2016 12:00 AM CSTAssociated Order(s): ANTICOAGULATION [facility] Name: CRISTIAN BLEDSOE : 1945 DOS: 09/15/2016 This is a patient of Dr. Berry. He is here today for an anticoagulation assessment and INR check fora diagnosis of atrial fibrillation. Patient states that he is feeling well. He denies any medication changes. INR tested today is therapeutic at 2.3 with the recommended goal range of 2.0 to 3.0. Patient will continue Coumadin at 7.5 mg Wednesday, Wednesday and 5 mg all other days with a recheck in one month. He verbalizes understanding. Electronically signed by:Tiffani Carrero RN Sep 15 2016 2:04PM SPEECH AND HEARING DIRECTOR * [facility], GENERICPROVIDER - 08/18/2016 12:00 AM CSTAssociated Order(s): ANTICOAGULATION [facility] Name: CRISTIAN BLEDSOE : 1945 DOS: 08/18/2016 This is a patient of Dr. Berry. He is here today for an anticoagulation assessment and INR check fora diagnosis of atrial fibrillation. Patient states that he is feeling well. He denies any medication changes. INR tested today is therapeutic at 2.0 with the recommended goal range of 2.0 to 3.0. Patient will continue Coumadin at 7.5 mg Wednesday, Wednesday and 5 mg all other days with a recheck in one month. He verbalizes understanding. Electronically signed by:Tiffani Carrero RN Aug 18 2016 2:21PM SPEECH AND HEARING DIRECTOR * [facility], GENERICPROVIBRANDO - 07/28/2016 12:00 AM CSTAssociated Order(s): ANTICOAGULATION Anticoagulation [facility] Name: CRISTIAN BLEDSOE : 1945 DOS: 07/28/2016 This is a patient of Dr. Berry. He is here today for an anticoagulation assessment and INR check fora diagnosis of atrial fibrillation. Patient states that he is feeling well. He denies any medication changes. INR tested today is 2.2 with the recommended goal range of 2.0 to 3.0. Patient will continue Coumadin at 7.5 mg Wednesday, Wednesday and 5 mg all other days with a recheck in three weeks. He verbalizes understanding. Electronically signed by:Tiffani Carrero RN Jul 28 2016 11:06AM SPEECH AND HEARING DIRECTOR * [facility], GENERICPROVIDER - 07/14/2016 12:00 AM CSTAssociated Order(s): ANTICOAGULATION Anticoagulation [facility] Name: CRISTIAN BLEDSOE : 1945 DOS: 07/14/2016 This is a patient of Dr. Berry. He presented to lab today for an INR checked for a diagnosis of atrial fibrillation. A follow up phone call was placed to the patient. He states that he has been feeling well. Patient denies any medication changes. INR tested today is elevated at 3.3 with the recommended goal range of 2.0 to 3.0. Patient will adjust Coumadin to 7.5 mg Wednesday, Wednesday and 5 mg all other days with a recheck in two weeks. He verbalizes understanding. Electronically signed by:Tiffani Carrero RN Jul 14 2016 11:21AM SPEECH AND HEARING DIRECTOR * [facility], GENERICPROVIBRANDO - 06/30/2016 12:00 AM CSTAssociated Order(s): ANTICOAGULATION Anticoagulation [facility] Name: CRISTIAN BLEDSOE : 1945 DOS: 06/30/2016 This is a patient of Dr. Berry. He is here today for anticoagulation assessment and INR checked for a diagnosis of atrial fibrillation. Patient states that he has been feeling well. He denies any medication changes. He does state that he pulled a muscle in his back while shoveling and that he took an extra strength Tylenol two days ago. INR tested today is elevated at 3.7 with the recommended goalrange of 2.0 to 3.0. Patient will adjust Coumadin to 7.5 mg Wednesday, Wednesday, Wednesday and 5 mg all other days with a recheck in two weeks. He verbalizes understanding. Electronically signed by:Tiffani Carrero RN Jun 30 2016 9:24AM SPEECH AND HEARING DIRECTOR * [facility] - 05/20/2016 12:00 AM CSTAssociated Order(s): ANTICOAGULATION Anticoagulation [facility] Name: CRISTIAN BLEDSOE : 1945 DOS: 05/20/2016 This is a patient of Dr. Berry. He is here today for anticoagulation assessment and INR checked for a diagnosis of atrial fibrillation. Patient states that he has been feeling well. He denies any medication changes. INR tested today is therapeutic at 2.2 with the recommended goal range of 2.0 to 3.0. Patient will continue Coumadin at 5 mg Wednesday, Wednesday and 7.5 mg all other days with a recheck in one month, sooner for any changes. He verbalizes understanding. Electronically signed by:Tiffani Carrero RN May 20 2016 3:59PM SPEECH AND HEARING DIRECTOR * [facility] 04/15/2016 12:00 AM CDTAssociated Order(s): ANTICOAGULATION [facility] Name: CRISTIAN BLEDSOE : 1945 DOS: 04/15/2016 This is a patient of Dr. Berry. He is here today for anticoagulation assessment and INR checked for a diagnosis of atrial fibrillation. Patient states that he has been feeling well. He denies any medication changes. INR tested today is therapeutic at 2.8 with the recommended goal range of 2.0 to 3.0. Patient will continue Coumadin at 5 mg Wednesday, Wednesday and 7.5 mg all other days with a recheck in one month, sooner for any changes. He verbalizes understanding. Patient received his high dose Fluzone injection for 2016 during his appointment today. Electronically signed by:Tiffani Carrero RN Apr 15 2016 5:55PM SPEECH AND HEARING DIRECTOR * MICHELLE AUSTINPROVIBRANDO - 03/18/2016 12:00 AM CDTAssociated Order(s): ANTICOAGULATION [facility] Name: CRISTIAN BLEDSOE : 1945 DOS: 03/18/2016 This is a patient of Dr. Berry. He is here today for anticoagulation assessment and INR checked for a diagnosis of atrial fibrillation. Patient states that he has been feeling well. He denies any medication changes. INR tested today is 2.3 with the recommended goal range of 2.0 to 3.0. Patient will continue Coumadin at 5 mg Wednesday, Wednesday and 7.5 mg all other days with a recheck in one month, soone r for any changes. He verbalizes understanding. Electronically signed by:Tiffani Carrero RN Mar 18 2016 9:42AM SPEECH AND HEARING DIRECTOR * MICHELLE AUSTINPROLUBNA - 03/09/2016 12:00 AM CDTAssociated Order(s): ANTICOAGULATION [facility] Comments Patient called in today and states that [...] verbalizes understanding Signatures Electronically signed by : Tiffani Carrero RN; Mar 09 2016 9:59AM SPEECH AND HEARING DIRECTOR * [facility] GENERICPROVIBRANDO - 02/27/2016 12:00 AM CDTAssociated Order(s): ANTICOAGULATION [facility] Name: CRISTIAN BLEDSOE : 1945 DOS: 02/27/2016 This is a patient of Dr. Berry. He is here today for anticoagulation assessment and INR checked for a diagnosis of atrial fibrillation. Patient states that he has been feeling well. He denies any medication changes. INR tested today is 2.5 with the recommended goal range of 2.0 to 3.0. Patient will continue Coumadin at 5 mg Wednesday, Wednesday and 7.5 mg all other days with a recheck in three weeks. He verbalizes understanding. Electronically signed by:Tiffani Carrero RN Feb 27 2016 12:04PM SPEECH AND HEARING DIRECTOR * [facility], GENERICPROVIBRANDO - 02/12/2016 12:00 AM CDTAssociated Order(s): ANTICOAGULATION [facility] Name: CRISTIAN BLEDSOE : 1945 DOS: 02/12/2016 This is a patient of Dr. Berry. He is here today for anticoagulation assessment and INR checked for a diagnosis of atrial fibrillation. Patient states that he has been feeling well. He denies any medication changes. INR tested today is 1.9 with the recommended goal range of 2.0 to 3.0. Patient will adjust Coumadin to 5 mg Wednesday, Wednesday and 7.5 mg all other days with a recheck in two weeks. He verb alizes understanding. Electronically signed by:Tiffani Carrero RN Feb 12 2016 9:02AM SPEECH AND HEARING DIRECTOR * [facility] - 02/04/2016 12:00 AM CDTAssociated Order(s): ANTICOAGULATION [facility] Name: CRISTIAN BLEDSOE : 1945 DOS: 02/04/2016 This is a patient of Dr. Berry. He is here today for anticoagulation assessment and INR checked for a diagnosis of atrial fibrillation. Patient states that he has been feeling well. He denies any recent medication changes beside Coumadin adjustments. INR tested today is 1.6 with the recommended goalrange of 2.0 to 3.0. Patient will adjust Coumadin this week to 7.5 mg Wednesday, Wednesday and 5 mg all other days. Next week he will take 5 mg Wednesday, Wednesday, Wednesday and 7.5 mg all other days. Patient will recheck INR in one week. Written dosing instructions are provided. He is encouraged to contact [facility] nurse with any questions regarding his dosing. Patient verbalizes understanding. Electronically signed by:Tiffani Carrero RN Feb 04 2016 9:45AM SPEECH AND HEARING DIRECTOR * [facility], GENERICPROVIDER - 01/31/2016 12:00 AM CDTAssociated Order(s): ANTICOAGULATION Name: CRISTIAN BLEDSOE : 1945 DOS: 01/31/2016 He is a patient of Dr. Berry. He is here today for anti-quickly should assessment and INR checked for atrial fibrillation. Patient started Coumadin on Wednesday at 5 mg daily. He states his last dose ofXarelto was yesterday. INR is 1.3 with the recommended range of 2.0-2.0. He will take 7.5 mg today and tomorrow and Wednesday with 5 mg on Wednesday with an INR check on Wednesday of next week. Electronically signed by:Carlene Hargrove RN Jan 31 2016 2:45PM SPEECH AND HEARING DIRECTOR documented in this encounter Plan of Treatment Not on file documented as of this encounter Procedures Procedure Name Priority Date/Time Associated Diagnosis Comments ANTICOAGULATION 01/14/2017 ANTICOAGULATION 12/23/2016 ANTICOAGULATION 12/02/2016 ANTICOAGULATION 11/17/2016 ANTICOAGULATION 11/10/2016 ANTICOAGULATION 10/29/2016 ANTICOAGULATION 10/23/2016 ANTICOAGULATION 10/13/2016 ANTICOAGULATION 09/15/2016 ANTICOAGULATION 08/18/2016 ANTICOAGULATION 07/28/2016 ANTICOAGULATION 07/14/2016 ANTICOAGULATION 06/30/2016 ANTICOAGULATION 05/20/2016 ANTICOAGULATION 04/15/2016 ANTICOAGULATION 03/18/2016 ANTICOAGULATION 03/09/2016 ANTICOAGULATION 02/27/2016 ANTICOAGULATION 02/12/2016 ANTICOAGULATION 02/04/2016 ANTICOAGULATION 01/31/2016 documented in this encounter Results * ANTICOAGULATION (01/14/2017) Narrative Procedure Note [facility] ROSMERY, MICHELLEPROVIDER - 01/14/2017 12:00 AM CDT [facility] Name: CRISTIAN BLEDSOE : 1945 DOS: 01/14/2017 This is a patient of Dr. Berry. He is here today for an anticoagulationassessment and INR check for a diagnosis of atrial fibrillation. Patientstates that he has been feeling well. He reports that he is waiting tohear back from the cancer center but believes that he will still bestarting radiation at the end of January. Patient reports that he is nowusing a Bi-pap machine at night time. INR tested today is therapeutic at2.4 with the recommended range of 2.0 to 3.0. Patient will continueCoumadin at 2.5 mg on Wednesdays and 5 mg all other days with an INRrecheck in three weeks per patient request. Patient verbalizesunderstanding. Electronically signed by:Tiffani Carrero RN Jan 14 2017 11:11AM SPEECH AND HEARING DIRECTOR [facility] OTHER * ANTICOAGULATION (12/23/2016) Narrative Procedure Note [facility] - 12/23/2016 12:00 AM CDT Anticoagulation [facility] Name: CRISTIAN BLEDSOE : 1945 DOS: 12/23/2016 This is a patient of Dr. Berry. He is here today for an anticoagulationassessment and INR check for a diagnosis of atrial fibrillation. Patientstates that he has been feeling well. He reports that he met with at the [facility] and will begin radiation on January 06. Thepatient states that he had his first Lupron injection last week and hasnot noticed any side effects from the injection. Patient reports that hehad a sleep study and is waiting for results. He states that Dr. Cruzdicated that he may end up needing a C-Pap. INR tested today istherapeutic at 2.3 with the recommended range of 2.0 to 3.0. Patient willcontinue Coumadin at 2.5 mg on Wednesdays and 5 mg all other days with anINR recheck in three weeks per patient request. Patient verbalizesunderstanding. Electronically signed by:Tiffani Carrero RN Dec 23 2016 11:30AM SPEECH AND HEARING DIRECTOR [facility] OTHER * ANTICOAGULATION (12/02/2016) Narrative Procedure Note [facility] - 12/02/2016 12:00 AM CDT Anticoagulation [facility] Name: CRISTIAN BLEDSOE : 1945 DOS: 12/02/2016 This is a patient of Dr. Berry. He is here today for an anticoagulationassessment and INR check for a diagnosis of atrial fibrillation. Patientstates that he has been feeling well. He reports that he will met with at the [facility] and has an appointment there on January 06 forhis radiation simulation testing and will begin daily radiation on for two months. Patient denies any medication changes. INR testedtoday is therapeutic at 3.0 with the recommended range of 2.0 to 3.0.Patient will adjust Coumadin slightly to 2.5 mg on Wednesdays and 5 mg allother days with an INR recheck in three weeks. Patient verbalizesunderstanding. Electronically signed by:Tiffani Carrero RN Dec 02 2016 4:10PM SPEECH AND HEARING DIRECTOR [facility] OTHER * ANTICOAGULATION (11/17/2016) Narrative Procedure Note [facility] - 11/17/2016 12:00 AM CDT Anticoagulation [facility] Name: CRISTIAN BLEDSOE : 1945 DOS: 11/17/2016 This is a patient of Dr. Berry. He is here today for an anticoagulationassessment and INR check for a diagnosis of atrial fibrillation. Patientstates that he has been feeling well. He reports that he will be meetingwith Dr. Conroy at the cancer center to find out information regardingradiation therapy. He states that he has an appointment next week with anelectrophysiologist to discuss a possible ablation. Patient denies anymedication changes. INR tested today is therapeutic at 2.7 with therecommended range of 2.0 to 3.0. Patient will continue Coumadin at 5 mgdaily with an INR recheck in two weeks. Patient verbalizesunderstanding. Electronically signed by:Tiffani Carrero RN Nov 17 2016 9:36AM SPEECH AND HEARING DIRECTOR [facility] OTHER * ANTICOAGULATION (11/10/2016) Narrative Procedure Note [facility] - 11/10/2016 12:00 AM CDT Anticoagulation [facility] Name: CRISTIAN BLEDSOE : 1945 DOS: 11/10/2016 This is a patient of Dr. Berry. He is here today for an anticoagulationassessment and INR check for a diagnosis of atrial fibrillation. Patientstates that he has been feeling well. He reports that he has beendiagnosis with prostate cancer and will be meeting with Dr. Conroy at [facility] to find out information regarding radiation therapy. Patientdenies any medication changes. INR tested today is elevated at 3.6 withthe recommended range of 2.0 to 3.0. Patient will adjust Coumadin with ahold today (11/10), then take 5 mg daily with an INR recheck in one week.Patient verbalizes understanding. Electronically signed by:Tiffani Carrero RN Nov 10 2016 2:41PM SPEECH AND HEARING DIRECTOR [facility] OTHER * ANTICOAGULATION (10/29/2016) Narrative Procedure Note [facility] - 10/29/2016 12:00 AM CDT Anticoagulation [facility] Name: CRISTIAN BLEDSOE : 1945 DOS: 10/29/2016 This is a patient of Dr. Berry. He is here today for an anticoagulationassessment and INR check for a diagnosis of atrial fibrillation. Patientstates that he had his prostate biopsy last Wednesday and resumed hisCoumadin on Wednesday. He reports that he mistakenly took Coumadin at 5 mgon Wednesday instead of 7.5 mg. INR tested today is 1.9 with the recommendedrange of 2.0 to 3.0. Patient will continue Coumadin at his regular dose of7.5 mg Mondays, Fridays and 5 mg all other days with a recheck in twoweeks. Patient verbalizes understanding. Electronically signed by:Tiffani Carrero RN Oct 29 2016 3:44PM SPEECH AND HEARING DIRECTOR [facility] OTHER * ANTICOAGULATION (10/23/2016) Narrative Procedure Note [facility] - 10/23/2016 12:00 AM CDT Anticoagulation [facility] Name: CRISTIAN BLEDSOE : 1945 DOS: 10/23/2016 This is a patient of Dr. Berry. He is taking anticoagulation for adiagnosis of atrial fibrillation. He is scheduled for a prostate biopsytoday at the [facility] with Dr. Maloney. Patient had his INR checkedin the [facility] lab prior to his procedure today. A call was placedto the patient. He states that he followed Dr. Ang directions and hasheld Coumadin for 5 days prior to procedure and has taking Lovenox 100 mgonce daily for 4 days prior to procedure. INR tested today is 1.2 with therecommended range of 2.0 to 3.0. Patient will resume Coumadin according tohis discharge instructions from Dr. Maloney. He will resume at his normaldose of Coumadin at 7.5 mg Wednesday, Wednesday and 5 mg all other days. He willrecheck INR one week after restarting Coumadin. Patient and his wifeverbalize understanding. Electronically signed by:Tiffani Carrero RN Oct 26 2016 9:49AM SPEECH AND HEARING DIRECTOR [facility] OTHER * ANTICOAGULATION (10/13/2016) Narrative Procedure Note [facility] - 10/13/2016 12:00 AM CDT [facility] Name: CRISTIAN BLEDSOE : 1945 DOS: 10/13/2016 This is a patient of Dr. Berry. He is here today for Lovenox teaching. Thepatient is accompanied by his today. He is taking anticoagulation fora diagnosis of atrial fibrillation. He is scheduled for a prostate biopsyon October 23. Patient is following the direction of Dr. Berry regardinghis Hold of Coumadin and use of Lovenox prior to procedure. Patient statesthat Dr. Berry has instructed him to Hold Coumadin for 5 days prior toprocedure and to administer Lovenox 100 mg once daily for 4 days prior toprocedure. Patient and his state that they are not familiar withLovenox injections. Lovenox teaching guide was reviewed and sent home withpatient. The patient and his verbalize understanding regarding theprocess of administering Lovenox. [facility] which is scheduled there. Afterprocedure he will follow discharge instructions from Dr. Maloney in regardsto when it is safe to resume Coumadin. Patient will resume at his regulardose of Coumadin at 7.5 mg Wednesday, Wednesday and 5 mg all other days. He willrecheck INR one week after restarting Coumadin. Patient and his wifeverbalize understanding. Electronically signed by:Tiffani Carrero RN Oct 13 2016 12:13PM SPEECH AND HEARING DIRECTOR AMENDMENTS: 1. Patient states that he was in the [facility] ER on October 08 with arapid heart rate due to an atrial flutter episode. He states that hisheart rate was in the 140's to 180's and was given IV diltiazem along withsome other medications to return him to a regular rhythm. He reports thathe had his INR checked in the ER with a result of 2.6 with the recommendedrange of 2.0 to 3.0. Electronically signed by:Tiffani Carrero RN Oct 13 2016 12:36PM SPEECH AND HEARING DIRECTOR [facility] OTHER * ANTICOAGULATION (09/15/2016) Narrative Procedure Note [facility] - 09/15/2016 12:00 AM CST [facility] Name: CRISTIAN BLEDSOE : 1945 DOS: 09/15/2016 This is a patient of Dr. Berry. He is here today for an anticoagulationassessment and INR check for a diagnosis of atrial fibrillation. Patientstates that he is feeling well. He denies any medication changes. INRtested today is therapeutic at 2.3 with the recommended goal range of 2.0to 3.0. Patient will continue Coumadin at 7.5 mg Wednesday, Wednesday and 5 mgall other days with a recheck in one month. He verbalizes understanding. Electronically signed by:Tiffani Carrero RN Sep 15 2016 2:04PM SPEECH AND HEARING DIRECTOR [facility] OTHER * ANTICOAGULATION (08/18/2016) [facility]arrative [facility] 12:00 AM CST Anticoagulation [facility] Name: CRISTIAN BLEDSOE : 1945 DOS: 08/18/2016 This is a patient of Dr. Berry. He is here today for an anticoagulationassessment and INR check for a diagnosis of atrial fibrillation. Patientstates that he is feeling well. He denies any medication changes. INRtested today is therapeutic at 2.0 with the recommended goal range of 2.0to 3.0. Patient will continue Coumadin at 7.5 mg Chidi, Wednesday and 5 mgall other days with a recheck in one month. He verbalizes understanding. Electronically signed by:Tiffani Carrero RN Aug 18 2016 2:21PM SPEECH AND HEARING DIRECTOR [facility] OTHER * ANTICOAGULATION (07/28/2016) Narrative [facility] 07/28/2016 12:00 AM CST Anticoagulation [facility] Name: CRISTIAN BLEDSOE : 1945 DOS: 07/28/2016 This is a patient of Dr. Berry. He is here today for an anticoagulationassessment and INR check for a diagnosis of atrial fibrillation. Patientstates that he is feeling well. He denies any medication changes. INRtested today is 2.2 with the recommended goal range of 2.0 to 3.0. Patientwill continue Coumadin at 7.5 mg Chidi, Wednesday and 5 mg all other dayswith a recheck in three weeks. He verbalizes understanding. Electronically signed by:Tiffani Carrero RN Jul 28 2016 11:06AM SPEECH AND HEARING DIRECTOR [facility] OTHER * ANTICOAGULATION (07/14/2016) Narrative [facility] 07/14/2016 12:00 AM CST Anticoagulation [facility] Name: CRISTIAN BLEDSOE : 1945 DOS: 07/14/2016 This is a patient of Dr. Berry. He presented to lab today for an INRchecked for a diagnosis of atrial fibrillation. A follow up phone call wasplaced to the patient. He states that he has been feeling well. Patientdenies any medication changes. INR tested today is elevated at 3.3 withthe recommended goal range of 2.0 to 3.0. Patient will adjust Coumadin to7.5 mg Wednesday, Wednesday and 5 mg all other days with a recheck in two weeks.He verbalizes understanding. Electronically signed by:Tiffani Carrero RN Jul 14 2016 11:21AM SPEECH AND HEARING DIRECTOR [facility] OTHER * ANTICOAGULATION (06/30/2016) Narrative Procedure Note [facility] - 06/30/2016 12:00 AM CST Anticoagulation [facility] Name: CRISTIAN BLEDSOE : 1945 DOS: 06/30/2016 This is a patient of Dr. Berry. He is here today for anticoagulationassessment and INR checked for a diagnosis of atrial fibrillation. Patientstates that he has been feeling well. He denies any medication changes. Hedoes state that he pulled a muscle in his back while shoveling and that hetook an extra strength Tylenol two days ago. INR tested today is elevatedat 3.7 with the recommended goal range of 2.0 to 3.0. Patient will adjustCoumadin to 7.5 mg Wednesday, Wednesday, Wednesday and 5 mg all other days witha recheck in two weeks. He verbalizes understanding. Electronically signed by:Tiffani Carrero RN Jun 30 2016 9:24AM SPEECH AND HEARING DIRECTOR [facility] OTHER * ANTICOAGULATION (05/20/2016) Narrative Procedure Note [facility] - 05/20/2016 12:00 AM CST Anticoagulation [facility] Name: CRISTIAN BLEDSOE : 1945 DOS: 05/20/2016 This is a patient of Dr. Berry. He is here today for anticoagulationassessment and INR checked for a diagnosis of atrial fibrillation. Patientstates that he has been feeling well. He denies any medication changes.INR tested today is therapeutic at 2.2 with the recommended goal range of2.0 to 3.0. Patient will continue Coumadin at 5 mg Chidi, Wednesday and 7.5mg all other days with a recheck in one month, sooner for any changes. Heverbalizes understanding. Electronically signed by:Tiffani Carrero RN May 20 2016 3:59PM SPEECH AND HEARING DIRECTOR [facility] OTHER * ANTICOAGULATION (04/15/2016) Narrative Procedure Note [facility] - 04/15/2016 12:00 AM CDT Anticoagulation [facility] Name: CRISTIAN BLEDSOE : 1945 DOS: 04/15/2016 This is a patient of Dr. Berry. He is here today for anticoagulationassessment and INR checked for a diagnosis of atrial fibrillation. Patientstates that he has been feeling well. He denies any medication changes.INR tested today is therapeutic at 2.8 with the recommended goal range of2.0 to 3.0. Patient will continue Coumadin at 5 mg Chidi, Wednesday and 7.5mg all other days with a recheck in one month, sooner for any changes. Heverbalizes understanding. Patient received his high dose Fluzone injection for 2015 during hisappointment today. Electronically signed by:Tiffani Carrero RN Apr 15 2016 5:55PM SPEECH AND HEARING DIRECTOR [facility] OTHER * ANTICOAGULATION (03/18/2016) Narrative Procedure Note [facility] - 03/18/2016 12:00 AM CDT [facility] Name: CRISTIAN BLEDSOE : 1945 DOS: 03/18/2016 This is a patient of Dr. Berry. He is here today for anticoagulationassessment and INR checked for a diagnosis of atrial fibrillation. Patientstates that he has been feeling well. He denies any medication changes.INR tested today is 2.3 with the recommended goal range of 2.0 to 3.0.Patient will continue Coumadin at 5 mg Wednesday, Wednesday and 7.5 mg all otherdays with a recheck in one month, sooner for any changes. He verbalizesunderstanding. Electronically signed by:Tiffani Carrero RN Mar 18 2016 9:42AM SPEECH AND HEARING DIRECTOR [facility] OTHER * ANTICOAGULATION (03/09/2016) Narrative Procedure Note [facility] - 03/09/2016 12:00 AM CDT [facility] Comments Patient called in today and states that he had an episode of AtrialFibrillation on the weekend. He states that he accidentally flip floppedhis Coumadin dose. Patient is encouraged to return to his regularscheduled dose of Coumadin at 5 mg Wednesday, Wednesday and 7.5 mg all otherdays with his INR check scheduled on Mar.18. Patient verbalizesunderstanding Signatures Electronically signed by : Tiffani Carrero RN; Mar 09 2016 9:59AMCST [facility] OTHER * ANTICOAGULATION (02/27/2016) Narrative Procedure Note [facility] - 02/27/2016 12:00 AM CDT [facility] Name: CRISTIAN BLEDSOE : 1945 DOS: 02/27/2016 This is a patient of Dr. Berry. He is here today for anticoagulationassessment and INR checked for a diagnosis of atrial fibrillation. Patientstates that he has been feeling well. He denies any medication changes.INR tested today is 2.5 with the recommended goal range of 2.0 to 3.0.Patient will continue Coumadin at 5 mg Wednesday, Wednesday and 7.5 mg all otherdays with a recheck in three weeks. He verbalizes understanding. Electronically signed by:Tiffani Carrero RN Feb 27 2016 12:04PM SPEECH AND HEARING DIRECTOR [facility] OTHER * ANTICOAGULATION (02/12/2016) Narrative Procedure Note [facility] - 02/12/2016 12:00 AM CDT Anticoagulation [facility] Name: CRISTIAN BLEDSOE : 1945 DOS: 02/12/2016 This is a patient of Dr. Berry. He is here today for anticoagulationassessment and INR checked for a diagnosis of atrial fibrillation. Patientstates that he has been feeling well. He denies any medication changes.INR tested today is 1.9 with the recommended goal range of 2.0 to 3.0.Patient will adjust Coumadin to 5 mg Wednesday, Wednesday and 7.5 mg all otherdays with a recheck in two weeks. He verbalizes understanding. Electronically signed by:Tiffani Carrero RN Feb 12 2016 9:02AM SPEECH AND HEARING DIRECTOR [facility] OTHER * ANTICOAGULATION (02/04/2016) Narrative Procedure Note [facility] - 02/04/2016 12:00 AM CDT Anticoagulation [facility] Name: CRISTIAN BLEDSOE : 1945 DOS: 02/04/2016 This is a patient of Dr. Berry. He is here today for anticoagulationassessment and INR checked for a diagnosis of atrial fibrillation. Patientstates that he has been feeling well. He denies any recent medicationchanges beside Coumadin adjustments. INR tested today is 1.6 with therecommended goal range of 2.0 to 3.0. Patient will adjust Coumadin thisweek to 7.5 mg Wednesday, Wednesday and 5 mg all other days. Next week hewill take 5 mg Wednesday, Wednesday, Wednesday and 7.5 mg all other days.Patient will recheck INR in one week. Written dosing instructions areprovided. He is encouraged to contact [facility] nurse with any questionsregarding his dosing. Patient verbalizes understanding. Electronically signed by:Tiffani Carrero RN Feb 04 2016 9:45AM SPEECH AND HEARING DIRECTOR [facility] OTHER * ANTICOAGULATION (01/31/2016) Narrative Procedure Note [facility] - 01/31/2016 12:00 AM CDT Name: CRISTIAN BLEDSOE : 1945 DOS: 01/31/2016 He is a patient of Dr. Berry. He is here today for anti-quickly shouldassessment and INR checked for atrial fibrillation. Patient startedCoumadin on Wednesday at 5 mg daily. He states his last dose of Xarelto wasye. INR is 1.3 with the recommended range of 2.0-2.0. He willtake 7.5 mg today and tomorrow and Wednesday with 5 mg on Wednesday with an INRcheck on Wednesday of next week. Electronically signed by:Carlene Hargrove RN Jan 31 2016 2:45PM SPEECH AND HEARING DIRECTOR [facility] OTHER documented in this encounter Visit Diagnoses Not on filedocumented in this encounter Care Teams Configuration Management Manager Relationship Specialty Start Date End Date Casey Berry II, DO PCP - General 11/22/06 08/17/19 Stephani Aleman MD PCP - General Family Medicine 08/18/19 09/16/20 Bianka Loera CNP [address] [place] [address] [address] [place] [phone] PCP - General Nurse Practitioner Family 09/17/20 7/2 12/31 Desiree Patrick MD [address] [place] [address] PCP - General Electrophysiology 02/23/22 03/09/22 Desiree Patrick MD [address] [place] [address] 08/09/17 Farrah Nicole APRN,[facility] [address] [place] [address] 08/09/17 Bry Echevarria MD [address] [place] [address] [place] [address] 08/09/17 Casey Berry II, DO 08/09/17 Shruti Vergara RN RN Registered Nurse 08/27/20 documented as of this encounter Additional Source Comments PLEASE NOTE: Replies to this message will not be received.[facility]
--- OUTSIDE RECORDS SUMMARY | 2023-08-16 11:22 | XMS_ITS | Encounter Summary ---
Author Name Unknown Organization [facility] Address [address] [place] [address] Care Team Providers Care Lapel Baster Name Role Phone Jamal CARLISLE DO, Robert William Primary Care Provide r Unavailable Desiree Patrick MD Unavailable Farrah Nicole APRN,ENGINEERING PROJECT DESIGNER Unavailable Bry Echevarria MD Unavailable Jamal CARLISLE DO, Robert William Unavailable Unav Stephani Diaz MD Primary Care Provider Shruti Vergara RN Unavailable Unavailable Bianka Loera CNP Primary Care Provider [phone] Desiree Patrick MD Primary Care P rovider Encounter Details Date Type Department Care Team Description 06/24/2016 Historical Conversion [facility] Family Medicine [address] [place] [id number] Casey Berry II, DO Social History Tobacco [...] Sign Reading Time Taken Comments Blood Pressure 115/76 06/24/2016 12:00 AM ASSISTANT CENTER MANAGER Pulse - - Temperature - - Respiratory Rate - - Oxygen Saturation - - Inhaled Oxygen Concentration - - Weight 91.5 kg (201 lb 11.5 oz) 016 12:00 AM ASSISTANT CENTER MANAGER Height - - Body Mass Index 26.61 11/15/2015 11:41 PM CDT documented in this [...] on filedocumented in this encounter Care Teams Lapel Baster Relationship Specialty Start Date End Date Casey Berry II, DO PCP - General 11/22/06 08/17/19 Stephani Aleman MD PCP - General Family Medicine 08/18/19 09/16/20 Bianka Loera CNP [address] [place] [phone] PCP - General Nurse Practitioner Family 09/17/2001/10 [place] [address] [place] [phone] PCP - General Electrophysiology 02/23/22 03/09/22 Desiree Patrick MD [address] [place] [address] 08/09/17 Farrah Nicole APRN,ENGINEERING PROJECT DESIGNER [address] [place] [address] 08/09/17 Bry Echevarria MD [address] [place], [place] [address] [address] 08/09/17 Casey Berry II, DO 08/09/17 Shruti Vergara RN RN Registered Nurse 08/27/20 documented as of this encounter Additional Source Comments PLEASE NOTE: Replies to this message will not be received.[facility]
--- OUTSIDE RECORDS SUMMARY | 2023-08-16 11:22 | XMS_ITS | Encounter Summary ---
Author Name Unknown Organization [facility] Address [address] [place] [address] Care Team Providers Care Bacteriologist Industrial Name Role Phone Jamal CARLISLE DO, Robert William Primary Care Provide r Unavailable Desiree Patrick MD Unavailable Farrah Nicole APRN,FUEL QUALITY TECH Unavailable Bry Echevarria MD Unavailable Jamal CARLISLE DO, Robert William Unavailable Unav Stephani Diaz MD Primary Care Provider Shruti Vergara RN Unavailable Unavailable Bianka Loera CNP Primary Care Provider [phone] Desiree Patrick MD Primary Care P rovider Encounter Details Date Type Department Care Team Description 12/11/[address] [facility] Family Medicine [address] [place] [id number] Casey Berry II, DO Social History Tobacco [...] Sign Reading Time Taken Comments Blood Pressure 116/72 12/11/2015 12:00 AM CDT Pulse - - Temperature - - Respiratory Rate - - Oxygen Saturation - - Inhaled Oxygen Concentration - - Weight 91.7 kg (202 lb 2.6 oz) 12/11/2015 12:00 AM CDT Height - - Body Mass Index 26.67 11/15/2015 11:41 PM CDT documented in this [...] on filedocumented in this encounter Care Teams Bacteriologist Industrial Relationship Specialty Start Date End Date Casey Berry II, DO PCP - General 11/22/06 08/17/19 Stephani Aleman MD PCP - General Family Medicine 08/18/19 09/16/20 Bianka Loera CNP [address] [place] [phone] PCP - General Nurse Practitioner Family 09/17/2001/10 [place] [address] [place] [phone] PCP - General Electrophysiology 02/23/22 03/09/22 Desiree Patrick MD [address] [place] [address] 08/09/17 Farrah Nicole APRN,FUEL QUALITY TECH [address] [place] [address] 08/09/17 Bry Echevarria MD [address] [place] [phone] 08/09/17 Casey Berry II, DO 08/09/17 Shruti Vergara RN RN Registered Nurse 08/27/20 documented as of this encounter Additional Source Comments PLEASE NOTE: Replies to this message will not be received.[facility]
--- OUTSIDE RECORDS SUMMARY | 2023-08-16 11:22 | XMS_ITS | Encounter Summary ---
Author Name Unknown Organization [facility] [employer] Address [address] [place] [address] Care Team Providers Care Logistics Clerk Name Role Phone Jamal CARLISLE DO, Robert William Primary Care Provide r Unavailable Desiree Patrick MD Unavailable Farrah Nicole APRN,BUYER Unavailable Bry Echevarria MD Unavailable Jamal CARLISLE DO, Robert William Unavailable Unav Stephani Diaz MD Primary Care Provider Shruti Vergara RN Unavailable Unavailable Bianka Loera CNP Primary Care Provider Desiree Patrick MD Primary Care P rovider Encounter Details Date Type Department Care Team Description 11/26/2015 HIM Conduit Bender [facility] [address] [address] Rajeev Barlow MD Social History Tobacco Use Types Packs/Day [...] as of this encounter Procedure Notes * Rajeev Barlow MD - 11/26/2015 12:00 AM CDTAssociated Order(s): MYOCARDIAL PERFUSION PHARMACOLOGIC STRESS PERFORMED BY: [facility] [place], [place] SITE: [place] INTERPRETED BY: [facility] [place], [place] PHARMACOLOGIC MYOCARDIAL PERFUSION SCAN Study supervised by: Casey Berry II, INDICATION: Atrial fibrillation. MEDICATIONS: Lisinopril, metoclopramide, Tylenol, Xarelto. RESTING EKG: Resting 12-lead electrocardiogram shows sinus rhythm, PACs, otherwise normal. PHARMACOLOGIC STRESS PROTOCOL: AGENT: Lexiscan (Regadenoson) DOSE: 0.4 mg (IV). RESTING HEART RATE: 55. PEAK HEART RATE: 75. RESTING BLOOD PRESSURE: 134/90. PEAK BLOOD PRESSURE: 154/87. SYMPTOMS DURING PHARMACOLOGIC STRESS: None. EKG RESPONSE TO STRESS: For complete stress interpretation see separate report by supervising provider. BLOOD PRESSURE RESPONSE TO STRESS: Normal. NUCLEAR PROTOCOL: TYPE: Rest/stress, single isotope gated SPECT imaging. [id number]: 12.5 mCi (IV) for the rest injection. [id number]-[id number]: 33.1 mCi (IV) for the stress injection. PERFUSION IMAGES: The pharmacologic stress sestamibi perfusion imaging demonstrates normal perfusion of the radiotracer to all regions of the left ventricular myocardium. Diaphragmatic attenuation artifact noted and corrected for. GATED WALL MOTION ANALYSIS: Gated wall motion study demonstrates normal left ventricular systolic function. Ejection fraction 65%. FINAL IMPRESSION: 1. Please see separately dictated report for the pharmacologic stress ECG protocol. 2. Normal pharmacologic stress sestamibi perfusion imaging. No evidence of ischemia or infarction. 3. Normal left ventricular systolic function. Note: This study was performed by [facility] [employer]. Only the interpretation was performed at the [facility] [place]. Electronically signed Rajeev Barlow MD, [facility] Term , 03:10 P A dsc/Doc#: [id number] cc: documented in this encounter Plan of Treatment Not on file documented as of this encounter Procedures Procedure Name Priority Date/Time Associated Diagnosis Comments MYOCARDIAL PERFUSION PHARMACOLOGIC STRESS 11/26/2015 documented in this encounter Results * MYOCARDIAL PERFUSION PHARMACOLOGIC STRESS (11/26/2015) Anatomical Region Laterality Modality Other 11/26/2015 Narrative Procedure Note Rajeev Barlow MD - 11/26/2015 12:00 AM CDT PERFORMED BY: [facility] [place], [place] SITE: [place] INTERPRETED BY: [place], [place] PHARMACOLOGIC MYOCARDIAL PERFUSION SCAN Study supervised by: Casey Berry II, INDICATION: Atrial fibrillation. MEDICATIONS: Lisinopril, metoclopramide, Tylenol, Xarelto. RESTING EKG: Resting 12-lead electrocardiogram shows sinus rhythm, PACs,otherwise normal. PHARMACOLOGIC STRESS PROTOCOL: AGENT: Lexiscan (Regadenoson) DOSE: 0.4 mg (IV). RESTING HEART RATE: 55. PEAK HEART RATE: 75. RESTING BLOOD PRESSURE: 134/90. PEAK BLOOD PRESSURE: 154/87. SYMPTOMS DURING PHARMACOLOGIC STRESS: None. EKG RESPONSE TO STRESS: For complete stress interpretation see separatereport by supervising provider. BLOOD PRESSURE RESPONSE TO STRESS: Normal. NUCLEAR PROTOCOL: TYPE: Rest/stress, single isotope gated SPECT imaging. [id number]-[id number]: 12.5 mCi (IV) for the rest injection. Si99x-AMVBOFBPQ: 33.1 mCi (IV) for the stress injection. PERFUSION IMAGES: The pharmacologic stress sestamibi perfusion imagingdemonstrates normal perfusion of the radiotracer to all regions of theleft ventricular myocardium. Diaphragmatic attenuation artifact noted andcorrected for. GATED WALL MOTION ANALYSIS: Gated wall motion study demonstrates normalleft ventricular systolic function. Ejection fraction 65%. FINAL IMPRESSION: 1. Please see separately dictated report for the pharmacologic stress ECGprotocol. 2. Normal pharmacologic stress sestamibi perfusion imaging. No evidenceof ischemia or infarction. 3. Normal left ventricular systolic function. Note: This study was performed by [employer]. Only theinterpretation was performed at the [facility]. Electronically signed Rajeev Barlow MD, [facility] , 03:10 P A dsc/Doc#: [id number] cc: Rajeev Barlow MD CAR NUC MED/STRESS documented in this encounter Visit Diagnoses Not on filedocumented in this encounter Care Teams Logistics Clerk Relationship Specialty Start Date End Date Casey Berry II, DO PCP - General 11/22/06 08/17/19 Stephani Aleman MD PCP - General Family Medicine 08/18/19 09/16/20 Bianka Loera CNP [address] [facility] [address] [place] [phone] PCP - General Nurse Practitioner Family 09/17/2001/10 Desiree Patrick MD [address] [place] [address] PCP - General Electrophysiology 02/23/22 03/09/22 Desiree Patrick MD [address] [place] [address] 08/09/17 Farrah Nicole APRN,BUYER [address] [place] [address] 08/09/17 Bry Echevarria MD [address] [place] [phone] 08/09/17 Casey Berry II, DO 08/09/17 Shruti Vergara RN RN Registered Nurse 08/27/20 documented as of this encounter Additional Source Comments PLEASE NOTE: Replies to this message will not be received.[facility] and [facility]
--- OUTSIDE RECORDS SUMMARY | 2023-08-16 11:22 | XMS_ITS | Encounter Summary ---
Author Name Unknown Organization [employer] Address [address] [place] [address] Care Team Providers Care Asset Protection Officer Name Role Phone Jamal CARLISLE DO, Robert William Primary Care Provide r Unavailable Desiree Patrick MD Unavailable Farrah Nicole APRN,CORRECTIONS NURSE Unavailable Bry Echevarria MD Unavailable Jamal CARLISLE DO, Robert William Unavailable Unav Stephani Diaz MD Primary Care Provider [phone] Shruti Vergara RN Unavailable Unavailable Bianka Loera CNP Primary Care Provider [phone] Desiree Patrick MD Primary Care P rovider Encounter Details Date Type Department Care Team Description 08/22/2014 Historical Conversion [facility] Family Medicine [address] [place] [id number] Casey Berry II, DO Social History Tobacco Use Types Packs/Day Years Used Date Smoking Tobacco: Never Assessed Sex and Gender Information Value Date Recorded Sex Assigned at Not on file Gender Identity Not on file Sexual Orientation Not on file documented as of this encounter Last Filed Vital Signs Vital Sign Reading Time Taken Comments Blood Pressure 145/88 08/22/2014 12:00 AM CONTRACTS SPECIALIST Pulse - - Temperature - - Respiratory Rate - - Oxygen Saturation - - Inhaled Oxygen Concentration - - Weight 90.7 kg (200 lb) 08/22/2014 12:00 AM CONTRACTS SPECIALIST Height 185.4 cm (6' 1) 08/22/2014 12:00 AM CONTRACTS SPECIALIST Body Mass Index 26.39 08/22/2014 12:00 AM CONTRACTS SPECIALIST documented in this encounter Plan of Treatment Not on file documented as of this encounter Visit Diagnoses Not on filedocumented in this encounter Care Teams Asset Protection Officer Relationship Specialty Start Date End Date Casey Berry II, DO PCP - General 11/22/06 08/17/19 Stephani Aleman MD PCP - General Family Medicine 08/18/19 09/16/20 Bianka Loera CNP [address] [place] [address] [address] [place] [address] PCP - General Nurse Practitioner Family 09/17/2001/10 Desiree Patrick MD [address] [place] [address] PCP - General Electrophysiology 02/23/22 03/09/22 Desiree Patrick MD [address] [place] [address] 08/09/17 Farrah Nicole, EMERGENCY NURSE,CORRECTIONS NURSE [address] [place] [address] 08/09/17 Bry Echevarria MD [facility] [place] [phone] 08/09/17 Casey Berry II, DO 08/09/17 Shruti Vergara RN RN Registered Nurse 08/27/20 documented as of this encounter Additional Source Comments PLEASE NOTE: Replies to this message will not be received.[facility] and [facility]
--- OUTSIDE RECORDS SUMMARY | 2023-08-16 11:22 | XMS_ITS | Encounter Summary ---
Author Name Unknown Organization [employer] Address [address] [place] [address] Care Team Providers Care Engineering Analyst Name Role Phone Jamal CARLISLE DO, Robert William Primary Care Provide r Unavailable Desiree Patrick MD Unavailable Farrah Nicole APRN,BOTTOM TURNER Unavailable Bry Echevarria MD Unavailable Jamal CARLISLE DO, Robert William Unavailable Unav Stephani Diaz MD Primary Care Provider Shruti Vergara RN Unavailable Unavailable Bianka Loera CNP Primary Care Provider [phone] Desiree Patrick MD Primary Care P rovider Encounter Details Date Type Department Care Team Description 08/27/2016 Historical Conversion [facility] Family Medicine [address] [place] [id number] Moon Maloney MD Social History Tobacco Use [...] Sign Reading Time Taken Comments Blood Pressure 175/101 08/27/2016 12:00 AM GAS MASK ASSEMBLER Pulse - - Temperature - - Respiratory Rate - - Oxygen Saturation - - Inhaled Oxygen Concentration - - Weight 95.7 kg (210 lb 15.7 oz) 017 12:00 AM GAS MASK ASSEMBLER Height - - Body Mass Index 27.84 11/15/2015 11:41 PM CDT documented in this [...] on filedocumented in this encounter Care Teams Engineering Analyst Relationship Specialty Start Date End Date Casey Berry II, DO PCP - General 11/22/06 08/17/19 Stephani Aleman MD PCP - General Family Medicine 08/18/19 09/16/20 Bianka Loera CNP [address] [place] [phone] PCP - General Nurse Practitioner Family 09/17/2001/10 [place] [address] [place] [address] PCP - General Electrophysiology 02/23/22 03/09/22 Desiree Patrick MD [address] [place] [address] 08/09/17 Farrah Nicole APRN,BOTTOM TURNER [address] [place] [address] 08/09/17 Bry Echevarria MD [address] [place] [phone] 08/09/17 Casey Berry II, DO 08/09/17 Shruti Vergara RN RN Registered Nurse 08/27/20 documented as of this encounter Additional Source Comments PLEASE NOTE: Replies to this message will not be received.[facility] and [facility]
--- OUTSIDE RECORDS SUMMARY | 2023-08-16 11:22 | XMS_ITS | Encounter Summary ---
Author Name Unknown Organization [employer] Address [address] [place] [address] Care Team Providers Care Compliance Officer Name Role Phone Jamal CARLISLE DO, Robert William Primary Care Provide r Unavailable Desiree Patrick MD Unavailable Farrah Nicole APRN,ELECTRICAL AND ELECTRONIC ASSEMBLER Unavailable [phone] Bry Echevarria MD Unavailable Jamal CARLISLE DO, Robert William Unavailable Unav Stephani Diaz MD Primary Care Provider [phone] Shruti Vergara RN Unavailable Unavailable Bianka Loera CNP Primary Care Provider Desiree Patrick MD Primary Care P rovider Encounter Details Date Type Department Care Team Description 09/10/[address] [facility] Family Medicine [address] [place] [id number] Casey Berry II, DO Social History Tobacco Use Types Packs/Day Years Used Date Smoking Tobacco: Never Assessed Sex and Gender Information Value Date Recorded Sex Assigned at Not on file Gender Identity Not on file Sexual Orientation Not on file documented as of this encounter Last Filed Vital Signs Vital Sign Reading Time Taken Comments Blood Pressure 130/80 09/10/2014 12:00 AM FLUE GAS ANALYST Pulse - - Temperature - - Respiratory Rate - - Oxygen Saturation - - Inhaled Oxygen Concentration - - Weight 93.9 kg (207 lb 0.2 oz) 09/10/2014 12:00 AM FLUE GAS ANALYST Height - - Body Mass Index 27.31 08/22/2014 12:00 AM FLUE GAS ANALYST documented in this encounter Plan of Treatment Not on file documented as of this encounter Visit Diagnoses Not on filedocumented in this encounter Care Teams Compliance Officer Relationship Specialty Start Date End Date Casey Berry II, DO PCP - General 11/22/06 08/17/19 Stephani Aleman MD PCP - General Family Medicine 08/18/19 09/16/20 Bianka Loera CNP [address] [place] [address] [address] [place] [phone] PCP - General Nurse Practitioner Family 09/17/2001/10 Desiree Patrick MD [address] [place] [address] PCP - General Electrophysiology 02/23/22 03/09/22 Desiree Patrick MD [address] [place] [address] 08/09/17 Farrah Nicole APRN,ELECTRICAL AND ELECTRONIC ASSEMBLER [address] [place] [address] 08/09/17 Bry Echevarria MD [address] [place] [address] [place] [phone] 08/09/17 Casey Berry II, DO 08/09/17 Shruti Vergara RN RN Registered Nurse 08/27/20 documented as of this encounter Additional Source Comments PLEASE NOTE: Replies to this message will not be received.[facility] and [facility]
--- OUTSIDE RECORDS SUMMARY | 2023-08-16 11:22 | XMS_ITS | Encounter Summary ---
Author Name Unknown Organization [facility] Address [address] [place] [address] Care Team Providers Care Interdisciplinary Professor Name Role Phone Jamal CARLISLE DO, Robert William Primary Care Provide r Unavailable Desiree Patrick MD Unavailable Farrah Nicole APRN,TEXTILE CONSERVATOR Unavailable [phone] Bry Echevarria MD Unavailable [phone] Jamal CARLISLE DO, Robert William Unavailable Unav Stephani Diaz MD Primary Care Provider Shruti Vergara RN Unavailable Unavailable Bianka Loera CNP Primary Care Provider [phone] Desiree Patrick MD Primary Care P rovider Encounter Details Date Type Department Care Team Description 11/07/2015 Historical Conversion [facility] Family Medicine [address] [place] [id number] Moon Maloney MD Social History Tobacco Use Types Packs/Day Years Used Date Smoking Tobacco: Never Assessed Sex and Gender Information Value Date Recorded Sex Assigned at Not on file Gender Identity Not on file Sexual Orientation Not on file documented as of this encounter Last Filed Vital Signs Vital Sign Reading Time Taken Comments Blood Pressure 150/92 11/07/2015 12:00 AM CDT Pulse - - Temperature - - Respiratory Rate - - Oxygen Saturation - - Inhaled Oxygen Concentration - - Weight 92.2 kg (203 lb 4.2 oz) 11/07/2015 12:00 AM CDT Height - - Body Mass Index 26.65 08/28/2015 12:00 AM HOUSE NURSE documented in this encounter Progress Notes * Moon Maloney MD - 11/06/2016 12:00 AM CDT [facility]Y [place] [facility] BLEDSOE : 1945 HX: [id number] DOS: 11/06/2016 SUBJECTIVE: Cristian and his are here to discuss the results of the recent prostate biopsy. We ended up taking Anurag off his Coumadin and doing a prostate biopsy because of a positive MEDICAL TRANSCRIBER-3 test and an elevated PSA, so he is here with his to discuss that. PHYSICAL EXAMINATION: Vital Signs: Vital signs reviewed in Allscripts. Please see vitals tab for details. His PSA was 5.4. His AUA symptom score is 1. His prostate size is 29.34 grams. The prostate biopsy came back with a Roosevelt 6 adenocarcinoma less than 2% one of two cores on the left base. Adenocarcinoma Roosevelt 7 less than 5% one of two cores on the left mid, and benign prostatic hypertrophy in the left apex. On the right base there was some ARPIT. The right mid showed prostate adenocarcinoma, Roosevelt 3+4 involving 20% two of two cores were positive. At the right apex, a Curt 3+4 or 7, involving 5% one of two cores. Now there was no extraprostatic or perineural invasion seen on any of these specimens. IMPRESSION: 1. Curt 7 adenocarcinoma of the prostate. PLAN: I talked to Anurag and he probably has another 15-18 years or maybe longer of longevity, so certainly if he had all Curt 6 we would probably be comfortable watching him. However, with the Curt 7, I know that they are watching some of these men, but given his longevity, we may want to consider treating this. I went through all of his options. We talked about radical prostatectomy, open yaw edna robotic and all of the pros and cons of that. We talked about brachytherapy or a combination ofexternal radiation and brachytherapy. He certainly has a reasonable size prostate. We also talked about just external radiation alone, which maybe a pretty appealing process for Anurag given the fact that he is on Coumadin. Now Cristian has an appointment with an electrophysiology on November 26, 2016. They are talking about doing some kind of a cardiac ablation. I think he is leaning a little bit toward external radiation for treatment of this, so I am going to go ahead and refer him to Dr. Winslow and they can at least have a sit down visit about it. I also encouraged Cristian to get another opinion if they decide. They will think about everything and let me know. A total of a 1 hour was spent in counseling and coordination of care. Again, I did go through all of the kind of risks and benefit ratio of all of these treatment options, but given the chronic Coumadin, probably the least optimal would be radical prostatectomy. Moon Maloney M.D./la-1 cc: Jose Winslow M.D./[facility] cc: Casey Berry II, D.O./[facility] Electronically signed by:Moon Maloney M.D. Nov 09 2016 1:49PM HOUSE NURSE * Moon Maloney MD - 10/23/2016 12:00 AM CDT [facility]Y [place] [facility] BLED[facility] : 1945 HX: [id number] DOS: 10/23/2016 SUBJECTIVE: Cristian is here for a prostate biopsy. I saw Cristian in August. PSA has started to go up.He had a little bit of an elevated PSA and elevated PSA velocity. We did a MEDICAL TRANSCRIBER-3 test. It did just come back positive. Cristian is on chronic Coumadin for atrial fibrillation. He was hospitalized this last weekend for atrial flutter. They ended up putting him on Lovenox. He took his last Lovenox yesterday and he was given the okay to go ahead and have the biopsy, so he has taken his Coumadin and he is here for the biopsy today. PHYSICAL EXAMINATION: Vital Signs: Vital signs reviewed in Allscripts. Please see vitals tab for details. PROSTATE ULTRASOUND/BIOPSY: The patient then back to the procedure room for his prostate biopsy. The patient received two enemas and again he took 500 of Cipro prior to the procedure. Lidocaine jellywas injected into the rectum, placed in a left lateral side-lying position. Digital rectal exam reveals a prostate that is probably about 30 grams, smooth. I do not feel anything concerning. Transrectal ultrasound probe was then inserted into the rectum. Pictures of the seminal vesicles, base, mid and apex were taken. I thought maybe there could be a slight hypoechoic area at the right base. Prostate measures 29.34 grams. Utilizing the needle portion of the transrectal ultrasound probe, I anesthetized the prostate at the base and apex of the left and right side with 1% Carbocaine. Then utilizi ng the biopsy needle portion of the transrectal ultrasound probe, I started the biopsies on the right lobe sampling the right base laterally and medially, then the right mid prostate laterally and medially, and the right apex laterally and medially. The same process was carried out on the left side, left base laterally and medially, left mid laterally and medially, and left apex lateral and medial ly. A total of 12 biopsies were taken and he tolerated it well. LABORATORY DATA: Urinalysis just showed some trace blood, otherwise is negative. IMPRESSION: 1. Elevated PSA and positive MEDICAL TRANSCRIBER-3 test. PLAN: I told Anurag to take it easy and drink plenty of fluids. If his urine does not look too bloody tomorrow, he can start his Coumadin, otherwise if it is quite bloody, I would maybe hold one more day and then he could go ahead back on his regular Coumadin doses. Again drink plenty of fluids, take it easy. If he has fevers, chills, or trouble urinating, he needs to get in immediately and let me know. Otherwise, if he has not heard from us by the end of the next week, he should let us know and we will tell him his results. Moon Maloney M.D./la-17 cc: Casey Berry II, D.OWilliam/[facility] Electronically signed by:Moon Maloney M.D. Oct 26 2016 12:13PM HOUSE NURSE * Moon Maloney MD - 08/27/2016 12:00 AM CST UROLOGY [facility] BLEDSOE : 1945 HX: [id number] DOS: 08/27/2016 SUBJECTIVE: Cristian comes to see me today. He is here for another follow up PSA. He had a little bit of a PSA velocity. The PSA came down and since he has kind of been on the bubble and he is 69, we just have elected to watch him. PHYSICAL EXAMINATION: Vital Signs: Vital signs reviewed in Allscripts. Please see vitals tab for details. Rectal: External rectal area is normal, normal rectal tone. Prostate is kind of ridges on both sides. It is not a very big prostate. I would say it is probably 30 grams and it is a little on the firmside, but it is symmetrically firm. I did go ahead and do a prostate massage because we are going to do a MEDICAL TRANSCRIBER-3 test. LABORATORY DATA: AUA symptom score is 1. He has absolutely no trouble urinating. PSA is 5.4. IMPRESSION: 1. Elevated PSA velocity. PLAN: We are going to go ahead and get a MEDICAL TRANSCRIBER-3 test because his velocity is really if you look at the one PSA, which was 4.6 and that was about a year and a half out. The PSA velocity is still at 0.9, so he is really kind of on the edge as far as the PSA velocity. It is not normal, but it is not severe. He is 70 and on Coumadin, so I would like to not biopsy him if I do not have to. We are going to go ahead and get a MEDICAL TRANSCRIBER-3 test today. Obviously if that is positive, I think we need to proceed with a prostate biopsy. He will have to go off of his Coumadin. He tells me he is on Coumadin for atrial fibrillation, so we will check with his primary, but likely he would be able to just stop it, butwe did talk about the risk of stroke associated with stopping the Coumadin and of course risks of bleeding. However, if the MEDICAL TRANSCRIBER-3 is negative, then I would just see him in six months for a PSA. Total time spent with the patient was 25 minutes with greater than 50% in counseling. Moon Maloney M.D./la-21 cc: Casey Berry II D.OWilliam/[facility] Electronically signed by:Moon Maloney M.D. Sep 18 2016 1:34PM HOUSE NURSE * Moon Maloney MD - 02/11/2016 12:00 AM CDT UROLOGY [facility] BLED[facility] : 1945 HX: [id number] DOS: 02/11/2016 SUBJECTIVE: Cristian comes to see me today for follow up of his PSA. He has a little bit of a PSA velocity, so we have just been keeping an eye on it. We thought maybe it was secondary to intercourse. He has had some new problems. He has had a recent onset of atrial flutter and fibrillation. He is currently on Coumadin. We also did a CT scan and he has got a pulmonary nodule and aneurysm that they have been monitoring. He has a couple of new things that they have changed in his health here since Tomas seen him last October. OBJECTIVE: Vital Signs: Vital signs reviewed in Allscripts. Please see vitals tab for details. LABORATORY DATA: AUA symptom score is 2. PSA is 4.6, so that is down from 5.6. IMPRESSION: 1. Normal PSA. 2. Recent normal digital rectal exam, but kind of borderline PSA velocity concerns. PLAN: The patient does not really meet the criteria yet for a biopsy. His PSA is down and PSA velocity is sort of on the bubble. We are just going to monitor him. He is on Coumadin now and is having other medical problems. I will see him in six months with a PSA. Fifteen minutes spent all in counseling. Moon Maloney M.D./la-2 cc: Casey Berry, II, D.O./[facility] Electronically signed by:Moon Maloney M.D. Feb 24 2016 9:43AM HOUSE NURSE * Moon Maloney MD - 11/07/2015 12:00 AM CDT UROLOGY [facility] BLED[facility] : 1945 HX: [id number] DOS: 11/07/2015 REFERRING PROVIDER: Dr. Berry. HISTORY OF PRESENT ILLNESS: Anurag Coates is here referred by Dr. Berry because of an elevated PSA. The patient has had many PSAs, which is always very helpful because his PSAs were running in the 2 range and then between March of 2011 and August 2013 he did not have any at least not in our clinic, but there was only a change from 2.9 to 3.1, then August of 2013 to 2014 there was a little bit of a velocity there, but it was not enough to really prompt concern, then August 2014 to August 2015, he had almost a 1.5 change, so that is a concern, well Dr. Berry put him on seven days of antibiotics and then rechecked it and it was 5.6. The patient is fairly sexually active, so there is a possibility that this could be up from intercourse. He does not have any voiding problems. He gets up once a night. Stream is okay. No blood or infection. No surgery. PAST SURGICAL HISTORY: Colonoscopy and vasectomy. PAST MEDICAL HISTORY: Avitaminosis, spine disorder, hypertension, and tachycardia. MEDICATIONS: See electronic medical record. ALLERGIES: PENICILLIN AND SULFA. SOCIAL HISTORY: He is a former smoker, retired from [employer], he is . FAMILY HISTORY: Negative for prostate cancer. REVIEW OF SYSTEMS: Constitutional: Negative. HEENT: Negative. Allergies/Immunologic: Negative. Neurologic: Negative. Endocrine: Negative. GI: Negative. : Positive for urinary frequency. Cardiovascular: Hypertension. Pulmonary: Negative. Hematologic: Negative. Skin/Integument: Negative. MS: Joint and back pain. Psychological: Negative. PHYSICAL EXAMINATION: Vital Signs: Vital signs reviewed in Allscripts. Please see vitals tab for details. Weight 92.2 kilos. Blood Pressure 150/92. Pulse 67. Temperature 98. Respiratory rate 16. General: Patient is in no acute distress. Neurologic: Alert and oriented times three. Skin: Negative. Neck: Neck is supple. Lymphatics: No cervical, supraclavicular or groin lymphadenopathy. Lungs: Clear to auscultation with good air entry. Heart: Regular rate and rhythm without any murmurs, clicks or rubs. Back: No CVA tenderness. Abdomen: Bowel sounds are positive. Abdomen is soft, nontender and nondistended. No masses or organomegaly. No hepatosplenomegaly. No suprapubic tenderness. Genitalia: Penis is circumcised. Meatus, glans and shaft of the penis are normal. Testes are both descended without any masses, supratesticular masses, or inguinal hernias. Rectal: External rectal area is normal, normal rectal tone. Prostate both sides has kind of rubberynodularity to both sides, but it is symmetrical. Prostate is enlarged probably 40 grams. I do not feel anything overly concerning. LABORATORY DATA: PSA again is 5.6. IMPRESSION: 1. Normal PSA for his age, however, a PSA velocity. PLAN: Again, this could be from intercourse, so we are going to check him one more time. I told himto abstain from intercourse for two weeks before just to be safe. I am going to see him back in three months with a PSA. If the PSA is still elevated, then I would recommend biopsy. Moon Maloney M.D./la-29 cc: Casey Berry II, D.O./[facility] Electronically signed by:Moon Maloney M.D. Nov 25 2015 10:34AM HOUSE NURSE documented in this encounter Plan of Treatment Not on file documented as of this encounter Visit Diagnoses Not on filedocumented in this encounter Care Teams Interdisciplinary Professor Relationship Specialty Start Date End Date Casey Berry II, DO PCP - General 11/22/06 08/17/19 Stephani Aleman MD PCP - General Family Medicine 08/18/19 09/16/20 Bianka Loera CNP [address] [facility] [address] [place] [address] PCP - General Nurse Practitioner Family 09/17/2001/10 [place] [address] [place] [phone] PCP - General Electrophysiology 02/23/22 03/09/22 Desiree Patrick MD [address] [facility] [place] [address] 08/09/17 Farrah Nicole APRN,TEXTILE CONSERVATOR [address] [facility] [place] [address] 08/09/17 Bry Echevarria MD [address] [place] [address] [facility] [place] [address] 08/09/17 Casey Berry II, DO 08/09/17 Shruti Vergara RN RN Registered Nurse 08/27/20 documented as of this encounter Additional Source Comments PLEASE NOTE: Replies to this message will not be received.[facility]
--- OUTSIDE RECORDS SUMMARY | 2023-08-16 11:22 | XMS_ITS | Encounter Summary ---
Author Name Unknown Organization [facility] Address [address] [place] [address] Care Team Providers Care Land Developer Name Role Phone Jamal CARLISLE DO, Robert William Primary Care Provide r Unavailable Desiree Patrick MD Unavailable Farrah Nicole APRN,BUSINESS EXECUTIVE Unavailable Bry Echevarria MD Unavailable [phone] Jamal CARLISLE DO, Robert William Unavailable Unav Stephani Diaz MD Primary Care Provider [phone] Shruti Vergara RN Unavailable Unavailable Bianka Loera CNP Primary Care Provider Desiree Patrick MD Primary Care P rovider Encounter Details Date Type Department Care Team Description 02/11/2016 Historical Conversion [facility] Family Medicine [address] [place] [id number] Moon Maloney MD Social History Tobacco Use [...] Sign Reading Time Taken Comments Blood Pressure 137/85 02/11/2016 12:00 AM CDT Pulse - - Temperature - - Respiratory Rate - - Oxygen Saturation - - Inhaled Oxygen Concentration - - Weight 90.3 kg (199 lb 1.2 oz) 02/11/2016 12:00 AM CDT Height - - Body Mass Index 26.26 11/15/2015 11:41 PM CDT documented in this [...] on filedocumented in this encounter Care Teams Land Developer Relationship Specialty Start Date End Date Casey Berry II, DO PCP - General 11/22/06 08/17/19 Stephani Aleman MD PCP - General Family Medicine 08/18/19 09/16/20 Bianka Loera CNP [address] [place] [phone] PCP - General Nurse Practitioner Family 09/17/2001/10 [place] [address] [place] [phone] PCP - General Electrophysiology 02/23/22 03/09/22 Desiree Patrick MD [address] [place] [address] 08/09/17 Farrah Nicole APRN,BUSINESS EXECUTIVE [address] [place] [address] 08/09/17 Bry Echevarria MD [address] [place] [id number] 08/09/17 Casey Berry II, DO 08/09/17 Shruti Vergara RN RN Registered Nurse 08/27/20 documented as of this encounter Additional Source Comments PLEASE NOTE: Replies to this message will not be received.[facility] and [facility]
--- OUTSIDE RECORDS SUMMARY | 2023-08-16 11:22 | XMS_ITS | Encounter Summary ---
Author Name Unknown Organization [email or web address] Address [address] [place] [address] Care Team Providers Care Packing Room Supervisor Name Role Phone Jamal CARLISLE DO, Robert William Primary Care Provide r Unavailable Desiree Patrick MD Unavailable Farrah Nicole APRN,CLASSIFIER OPERATOR Unavailable Bry Echevarria MD Unavailable [phone] Jamal CARLISLE DO, Robert William Unavailable Unav Stephani Diaz MD Primary Care Provider Shruti Vergara RN Unavailable Unavailable Bianka Loera CNP Primary Care Provider [phone] Desiree Patrick MD Primary Care P rovider Encounter Details Date Type Department Care Team Description 09/02/2016 Historical Conversion [facility] Family Medicine [address] [place] [id number] Casey lE II, DO Social History Tobacco Use Types [...] Sign Reading Time Taken Comments Blood Pressure 151/81 09/02/2016 12:00 AM RAIL FILLER Pulse - - Temperature - - Respiratory Rate - - Oxygen Saturation - - Inhaled Oxygen Concentration - - Weight 93.5 kg (206 lb 2.1 oz) 09/02/2016 12:00 AM RAIL FILLER Height 185.1 cm (6' 0.87) 09/02/2016 12:00 AM Saúl Body Mass Index 27.29 09/02/2016 12:00 AM RAIL FILLER documented in this encounter Functional Status Functional [...] of this encounter Progress Notes * Casey El II, DO - 04/06/2017 12:00 AM CDT Assessment 1. Former smoker: 0 - 10 pack years (V15.82) (Z87.891) 1. Orthostatic, on medications. 2. Atrial fibrillation but cannot get onto his Tikosyn until after finished therapy for prostate cancer. Plan 1. Continue metoprolol 50 mg daily. 2. Decrease Diltiazem to 180 mg daily. 3. Patient is to let me know about how he feels next week after the Diltiazem gets back to a baseline lower level. 4. We may need to cut back medications more for the blood pressure but may need to increase digoxinfor pulse. Plan Orders Paroxysmal atrial fibrillation ACC Dosing; Status:Active; Requested for:12May2017; Unlinked Lupron Depot (3-Month) 22.5 MG Intramuscular Kit Cartia XT 180 MG Oral Capsule Extended Release 24 Hour; 1 QD Lupron Depot (3-Month) 22.5 MG Intramuscular Kit; 22.5 mg Q 3 mo Reason For Visit Patient in with fatigue. History of Present Illness This is a 71-year-old male who is coming in today for fatigue. He has been feeling worse lately, weak, rundown, and tired. It should be noted that his last blood pressures are in the 90s. He states at home he even gets lower. He gets dizzy and lightheaded when he gets up. His pulse has been remaining stable. He has already cut his metoprolol back from 50 twice a day to 50 once a day. He is currently taking Diltiazem at 360 a day. He has no other new complaints at this time, no fevers, chills, or night sweats. Review of Systems CONSTITUTIONAL:Denies weight loss, weight [...] unusual alopecia. HEMATOLOGIC:Denies blood dyscrasias or anemia. :Has been seeing Urology for adenocarcinoma of the prostate. Past Medical History 1. Abnormal PSA (795.89) (R97.20) 2. Afib (427.31) (I48.91) 3. Ascending aortic aneurysm (441.2) (I71.2) 4. Atrial fibrillation with RVR (427.31) (I48.91) 5. Avitaminosis D (268.9) (E55.9) 6. CA of prostate (185) (C61) 7. Carcinoma of prostate (185) (C61) 8. Difficulty swallowing (787.20) (R13.10) 9. Dilated aortic root (447.71) (I77.810) 10. Hyperglycemia (790.29) (R73.9) 11. Denied: History of Nicotine Dependence 12. Paroxysmal atrial fibrillation (427.31) (I48.0) 13. Paroxysmal tachycardia (427.2) (I47.9) 14. History of Vision Assessment Surgical History 1. [...] pack years (V15.82) (Z87.891) Current Meds 1. Digoxin 125 MCG Oral Tablet; Therapy: (Recorded:21Oct2016) to Recorded 2. DilTIAZem CD 300 MG Oral Capsule Extended Release 24 Hour; Therapy: (Recorded:21Oct2016) to Recorded 3. Flomax 0.4 MG CPCR; Therapy: (Recorded:75Tsr9693) to Recorded 4. Lupron Depot (3-Month) 22.5 MG Intramuscular Kit; 22.5 mg Q 3 mo; Recurring Schedule:31Dec2016 to (Exp:31Dec2017); Status: IN PROGRESS - Order Generated Ordered 5. Lupron Depot (3-Month) 22.5 MG Intramuscular Kit; 22.5 mg Q 3 mo; To Be Done: 02Apr2017; Status: HOLD FOR - Administration Ordered 6. Metoclopramide HCl - 5 MG Oral Tablet; TAKE 1 TABLET as needed; Therapy: 10Sep2014 to Requested for: 36Jqc8921 Recorded 7. Metoprolol Tartrate 50 MG Oral Tablet; TAKE 1 TABLET TWICE DAILY; Therapy: (Recorded:21Oct2016) to Recorded 8. Tylenol Extra Strength 500 MG Oral Tablet; Therapy: (Recorded:18Nov2015) to Recorded 9. Warfarin Sodium 5 MG Oral Tablet; Take as directed by ACC; Therapy: 26Oaz1248 to (Evaluate:64Vre2657) Requested for: 20Hlb4348; Last Rx:[id number] Ordered Allergies 1. Penicillins 2. Sulfa Drugs Vitals Vital Signs Recorded: 11Itt7509 09:54AM Systolic 116, RUE, Sitting Diastolic 82, RUE, Sitting Heart Rate 116 Temperature 98 F, Tympanic Weight 94 kg BMI Calculated 27.44 BSA Calculated 2.18 O2 Saturation 98 Physical Exam GENERAL: Patient is orthostatic. EYES:Pupils equal, round, reactive to light and accommodation. Extraocular muscles intact. Funduscopic exam benign. EARS:Tympanic membrane intact, cone of light noted. THROAT:No erythema, no lesion. HEART:Regular rate and rhythm without murmur, S3, S4, gallop, or rub. PMI nondisplaced. LUNGS:Clear to auscultation without egophony, wheeze, bronchial breath sounds, change in tactile fremitus. Signatures Casey El II, D.O./jaj-05 Electronically signed by : Casey El DO; Apr 16 2017 8:13AM RAIL FILLER * Casey El II, DO - 11/30/2016 12:00 AM CDT Assessment 1. Former smoker: 0 - 10 pack years (V15.82) (Z87.891) Prostate cancer. Atrial fibrillation. Plan Patient is going to undergo the Lupron and radiation and then later, the will most likely undergo the Tikosyn and Cardioversion. Plan Orders SocHx: Former smoker: 0 - 10 pack years Former Smoker: Since tobacco use can have significant health risks, you are helping yourself and others stay healthy by no longer smoking.; Status:Complete; Done: 78Yvm2635 Counseling Total time of encounter was 20 minutes and 20 minutes was spent counseling and coordination of care. About his ongoing medical problems. Reason For Visit Discuss care plan History of Present Illness This is a 71-year-old male who comes in today with prostate cancer. Besides prostate cancer, the patient also has a problem with atrial fibrillation. He has been seen by electrophysiologists and has felt that he could undergo an ablation and medication. However, but because of his prostate cancer and undergoing radiation and going to be placed on Lupron. That is an contraindication with Lupron and Tikosyn due to TQ interval and prolongation. I did discuss with the patient about QT prolongation.I did discuss with him about which therapy he should undergo first. At this point in time, the Buckle Strap Drum Operator has not stated that he a risk for a fatal arrhythmia, however, they did say that he is curre ntly at a level that if we do not treat his prostate cancer, it could go outside the capsule. With that in mind, the best treatment would be to first take care of the prostate cancer, then deal with the arrhythmia afterwards. We did have a long discussion about this overall. Past Medical History 1. Abnormal PSA (790.93) (R97.20) 2. Afib (427.31) (I48.91) 3. Ascending aortic aneurysm (441.2) (I71.2) 4. Atrial fibrillation with RVR (427.31) (I48.91) 5. Avitaminosis D (268.9) (E55.9) 6. Carcinoma of prostate (185) (C61) 7. Difficulty swallowing (787.20) (R13.10) 8. Dilated aortic root (447.71) (I77.810) 9. Hyperglycemia (790.29) (R73.9) 10. Denied: History of Nicotine Dependence 11. Paroxysmal tachycardia (427.2) (I47.9) 12. History of Vision Assessment Surgical History 1. [...] 2 diabetes mellitus (V18.0) (Z83.3) Social History Former smoker: 0 - 10 pack years (V15.82) (Z87.891) Current Meds 1. Digoxin 125 MCG Oral Tablet; Therapy: (Recorded:21Oct2016) to Recorded 2. DilTIAZem CD 300 MG Oral Capsule Extended Release 24 Hour; Therapy: (Recorded:21Oct2016) to Recorded 3. Metoclopramide HCl - 5 MG Oral Tablet; TAKE 1 TABLET as needed; Therapy: 10Sep2014 to Requested for: 51Bof2353 Recorded 4. Metoprolol Tartrate 50 MG Oral Tablet; TAKE 1 TABLET TWICE DAILY; Therapy: (Recorded:21Oct2016) to Recorded 5. Tylenol Extra Strength 500 MG Oral Tablet; Therapy: (Recorded:18Nov2015) to Recorded 6. Warfarin Sodium 5 MG Oral Tablet; Take as directed by [facility]; Therapy: 36Awq0213 to (Evaluate:01Mjv4670) Requested for: 17Nov2016 Recorded Allergies 1. Penicillins 2. Sulfa Drugs Vitals Recorded: 30Nov2016 10:12AM Systolic 121 Diastolic 83 Heart Rate 106 Respiration 20 Temperature 98 F Weight 94.2 kg BMI Calculated 27.49 BSA Calculated 2.18 O2 Saturation 97 Physical Exam Deferred. Signatures Casey El II, D.OWilliam/pj-30 Electronically signed by : Casey El DO; Dec 09 2016 1:14PM RAIL FILLER * Casey El II, DO - 10/26/2016 12:00 AM CDT Assessment 1. Former smoker: 0 - 10 pack years (V15.82) (Z87.891) Atrial fibrillation/flutter. Plan Awaiting Holter monitor to see what is going to be done next with the Buckle Strap Drum Operator and most likely,Electrophysiology. We finally did get the results from the Holter which showed flutter and they will send him to see the Squeezer Operator. Reason For Visit patient in for hospital follow up heart issues History of Present Illness This is a 70-year-old male who comes in today with atrial flutter. He was in the hospital due to tachycardia. He was seen by cardiology. They have put him on a Holter monitor, which they just took off. We are waiting for the results, but we do not have them yet. We did talk to him about what the options were felt to be done if he does have flutter versus ongoing fibrillation. Past Medical History 1. Abnormal PSA (790.93) (R97.20) 2. Afib (427.31) (I48.91) 3. Ascending aortic aneurysm (441.2) (I71.2) 4. Atrial fibrillation with RVR (427.31) (I48.91) 5. Avitaminosis D (268.9) (E55.9) 6. Difficulty swallowing (787.20) (R13.10) 7. Dilated aortic root (447.71) (I77.810) 8. Hyperglycemia (790.29) (R73.9) 9. Denied: History of Nicotine Dependence 10. Paroxysmal tachycardia (427.2) (I47.9) 11. History of Vision Assessment Surgical History 1. [...] pack years (V15.82) (Z87.891) Current Meds 1. Digoxin 125 MCG Oral Tablet; Therapy: (Recorded:21Oct2016) to Recorded 2. DilTIAZem CD 300 MG Oral Capsule Extended Release 24 Hour; Therapy: (Recorded:21Oct2016) to Recorded 3. Metoclopramide HCl - 5 MG Oral Tablet; TAKE 1 TABLET as needed; Therapy: 10Sep2014 to Requested for: 02Sep2016 Recorded 4. Metoprolol Tartrate 50 MG Oral Tablet; TAKE 1 TABLET TWICE DAILY; Therapy: (Recorded:21Oct2016) to Recorded 5. Tylenol Extra Strength 500 MG Oral Tablet; Therapy: (Recorded:34Ctx1642) to Recorded 6. Warfarin Sodium 5 MG Oral Tablet; Take as directed by ACC; Therapy: 11Bqo1919 to (Evaluate:54Cko3333) Requested for: 14Jul2016 Recorded Allergies 1. Penicillins 2. Sulfa Drugs Vitals Recorded: 27Yqm8177 10:40AM Systolic 117, RUE, Sitting Diastolic 73, RUE, Sitting Heart Rate 81 Temperature 97.3 F, Tympanic Weight 94 kg BMI Calculated 27.44 BSA Calculated 2.18 O2 Saturation 97 Physical Exam EYES:Pupils equal, round, reactive to light and accommodation. Extraocular muscles intact. Funduscopic exam benign.Tympanic membrane intact, cone of light noted.Irregular rate and rhythm without murmur, S3, S4, gallop, or rub. PMI nondisplaced.Clear to auscultation without egophony, wheeze, bronchial breath sounds, change in tactile fremitus. Signatures Casey El II, D.O./pj-24 Electronically signed by : Casey El DO; Nov 06 2016 8:45AM RAIL FILLER documented in this encounter H&P Notes * Casey El II, DO - 09/02/2016 12:00 AM CST Assessment 1. Former smoker: 0 - 10 pack years (V15.82) (Z87.891) 2. Hyperglycemia (790.29) (R73.9) 1. Atrial fibrillation. 2. Low vitamin D. 3. Hypertension. 4. Elevated PSA. Plan 1. The patient has done his blood work earlier this month. 2. We will refill medications. Plan Orders Hyperglycemia Comprehensive Metabolic Panel; Status:Hold For - Manual Activation; Requested for:22Tfy9926; Hemoglobin A1C; Status:Hold For - Manual Activation; Requested for:79Rkf2838; SocHx: Former smoker: 0 - 10 pack years Former Smoker: Since tobacco use can have significant health risks, you are helping yourself and others stay healthy by no longer smoking.; Status:Complete; Done: 98Tey9818 Reason For Visit H & P History of Present Illness The patient presents for a routine physical. The patient filled out the paperwork. He sees urology.No other major complaints. Review of Systems CONSTITUTIONAL: Denies weight loss, weight gain, fevers, chills, or night sweats. HEENT: Denies blurred vision, double vision, earache, sore throat, runny nose, congestion. CARDIOVASCULAR: See history of chief complaint. RESPIRATORY: Denies cough, congestion, runny nose. GI: Denies nausea, vomiting, diarrhea, constipation, melena, hematochezia, weight loss, weight gain. MS: Denies aches, pains. NEURO/PSYCH: Denies stroke, seizure, anxiety, or depression. ENDOCRINE: Denies polyuria, polydipsia, polyphagia, heat or cold intolerance, unusual alopecia. HEMATOLOGIC: Denies blood dyscrasias or anemia. : Denies dysuria, polyuria, hematuria. Past Medical History 1. Afib (427.31) (I48.91) 2. Ascending aortic aneurysm (441.2) (I71.2) 3. Avitaminosis D (268.9) (E55.9) 4. Difficulty swallowing (787.20) (R13.10) 5. Dilated aortic root (447.71) (I77.810) 6. Denied: History of Nicotine Dependence 7. Paroxysmal tachycardia (427.2) (I47.9) 8. History of Vision Assessment 1. Hypertension. 2. Atrial fibrillation. 3. Low vitamin D. Surgical History 1. History of Colonoscopy (Fiberoptic) ?? due 02/04/2020 1. Ganglion cyst over left wrist. 2. Vasectomy. 3. Tube placed in his right ear. Family History Fathered , he had oral cancer. Mother , she had Alzheimer's. Diabetes runs in the family. Social History 1. Former smoker: 0 - 10 pack years (V15.82) (Z87.891) The patient does not smoke. No caffeine, rare alcohol. 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 Colonoscopy in 2009. Pneumovax 2009. Prevnar 2015. Current Meds 1. Lisinopril 10 MG Oral Tablet; TAKE 1 TABLET BY MOUTH ONCE DAILY; Therapy: 23Bvs0926 to (Evaluate:44Kln9629) Requested for: 13Jul2016; Last Rx:13Jul2016 Ordered 2. Metoclopramide HCl - 5 MG Oral Tablet; TAKE 1 TABLET as needed; Therapy: 10Sep2014 to Requested for: 02Sep2016 Recorded 3. Metoprolol Tartrate 25 MG Oral Tablet; 1 prn a fib; Therapy: (Recorded:74Xhp3439) to Requested for: 02Sep2016 Recorded 4. Tylenol Extra Strength 500 MG Oral Tablet; Therapy: (Recorded:92Son3328) to Recorded 5. Warfarin Sodium 5 MG Oral Tablet; Take as directed by ACC; Therapy: 28Wrb4026 to (Evaluate:54Toe8472) Requested for: 14Jul2016 Recorded Allergies 1. Penicillins 2. Sulfa Drugs Vitals Recorded: 02Sep2016 01:16PM Systolic 151, RUE, Sitting Diastolic 81, RUE, Sitting Heart Rate 63 Respiration 16 Temperature 98.4 F, Tympanic Height 185.1 cm Weight 93.5 kg BMI Calculated 27.29 BSA Calculated 2.18 2+ Falls or 1 Fall with injury in last year? No O2 Saturation 95 Physical Exam EYES: Pupils equal, round, reactive to light and accommodation. Extraocular muscles intact. Funduscopic exam benign. EARS: Tympanic membrane intact, cone of light noted. THROAT: No erythema, no lesion. NECK: No adenopathy, bruits, thyroid enlargement. LYMPH NODES: No nodes in pre- and postauricular, anterior posterior cervical, axillary, epitrochlear, or inguinal. HEART: Irregular rate and rhythm without murmur, S3, S4, [...] intact. SKIN: Warm and dry without rash. /RECTAL: Done by urology. Results/Data PHQ-9 92Adl7447 12:00AM Casey El Test Name Result Flag Reference PHQ-9 0 Alcohol & Drug Questionnaire for Adults 60Bpj7678 12:00AM Casey El Test Name Result Flag Reference Alcohol & Drug Questionnaire for Adults 3 Nurse Note Pt given heel cups by dr el. #[id number] qty 2. mquam child care coordinator Recorded as Task Date: 09/14/2016 01:01 PM, Created By: CHERELLE GOMEZ Task Name: Go To Noteform Note Assigned To: CHERELLE GOMEZ Regarding Patient: CRISTIAN BLEDSOE, Status: Active Comment: CHERELLE GOMEZ - 14 Sep 2016 1:[address] Jamal Mendoza gave the patient 2 heel cups. I need a dx for them to bill. Please call if you have any questions! Cherelle Gomez [facility] #[id number] Kelly Walls - 15 Sep 2016 7:16 AM TASK REASSIGNED: Previously Assigned To Kelly Walls Michelle - 15 Sep 2016 9:00 AM TASK REASSIGNED: Previously Assigned To Casey El per dr el- dx plantar fasciitis M72.2 thanks. uam child care coordinator Signatures Casey El II, D.OWilliam/la-3 Electronically signed by : Casey El DO; Sep 11 2016 1:25PM RAIL FILLER Electronically signed by : Casey El DO; Sep 16 2016 12:34PM RAIL FILLER documented in this encounter Plan of Treatment Not on file documented as of this encounter Visit Diagnoses Not on filedocumented in this encounter Care Teams Packing Room Supervisor Relationship Specialty Start Date End Date Casey El II, DO PCP - General 11/22/06 08/17/19 Stephani Aleman MD PCP - General Family Medicine 08/18/19 09/16/20 Bianka Loera CNP [address] [place] [address] [address] [place] [address] PCP - General Nurse Practitioner Family 09/17/20 7/2 12/31 Desiree Patrick MD [address] [place] [address] PCP - General Electrophysiology 02/23/22 03/09/22 Desiree Patrick MD [address] [place] [address] 08/09/17 Farrah Nicole APRN,CLASSIFIER OPERATOR [address] [place] [address] 08/09/17 Bry Echevarria MD [address] [place] [address] [place] [phone] 08/09/17 Casey El II, DO 08/09/17 Shruti Vergara, RN RN Registered Nurse 08/27/20 documented as of this encounter Additional Source Comments PLEASE NOTE: Replies to this message will not be received.[facility]
--- OUTSIDE RECORDS SUMMARY | 2023-08-16 11:23 | XMS_ITS | Encounter Summary ---
Author Name Unknown Organization [facility] Address [address] [place] [address] Care Team Providers Care Differential Specialist Name Role Phone Unavailable Primary Care Provider Unavailabl e Reason for Referral * Outpatient (Routine) - Closed Specialty Diagnoses / Procedures Referred By Malinda awn Referred To Contact Sleep Medicine Diagnoses Sleep Apnea Unspecified Vic Mae M.D. [address] [phone] [facility] Referral ID Status Reason Start Date Expiration Date V isits Requested Visits Authorized [id number] Closed Specialty Services Required 04/15/2023 04/14/2024 1 1 Reason for Visit * Reason Comments Parkinson's Disease * Outpatient (Routine) - Closed Specialty Diagnoses / Procedures Referred By Malinda wan Referred To Contact Neurology Diagnoses Parkinsonism Unspecified (HCC) Sleep Apnea Unspecified Marli Sauceda M.D. [address] [place] [address] [facility] Referral ID Status Reason Start Date Expiration Date Visits Re quested Visits Authorized [id number] Closed 02/10/2023 02/10/2024 1 1 Encounter Details Date Type Department Care Team (Late st Contact Info) Description 04/15/2023 3:15 PM CDT Office Visit Department of Neurology in [place], [place] [address] [place] [address] Vic Mae M.D. [address] [phone] Parkinsonism Unspecified (HCC); Sleep Apnea Unspecified Social History Tobacco Use Types Packs/Day Years Used Date Smoking Tobacco: Former Cigarettes Q uit: 1978 Smokeless Tobacco: Never Tobacco Cessation:Counseling Given: Not Answered Nutrition Answer Date Recorded Nutrition: EVOO Fat Source Unknown 01/27 Nutrition: Servings of Fruits/Vegetables per Day Not on file 01/27/2022 Dental Answer Date Recorded Dental: Regular Dentist Unknown 01/28/20 Sex and Gender Information Value Date Recorded Sex Assigned at Not on file Gender Identity Not on file Sexual Orientation Not on file documented as of this encounter Last Filed Vital Signs Vital Sign Reading Time Taken Comments Blood Pressure 124/78 04/15/2023 2:57 PM CDT Pulse 57 04/15/2023 2:57 PM CDT Temperature - - Respiratory Rate - - Oxygen Saturation - - Inhaled Oxygen Concentration - - Weight 87.8 kg (193 lb 9 oz) 04/15/2023 2:57 PM CDT Height 184 cm (6' 0.44) 04/15/2023 2:57 PM CDT Body Mass Index 25.93 04/15/2023 2:57 PM CDT documented in this encounter Progress Notes * Vic Mae M.D. - 04/15/2023 3:15 PM CDT SUBJECTIVE CHIEF COMPLAINT / REASON FOR VISIT Rohan Carroll is a 77 y.o. male who presents for evaluation of Parkinson's Disease. HISTORY OF PRESENT ILLNESS Rohan Carroll is a 77-year-old male with a history of Parkinson's disease as well as vascular dementia who returns to [facility] for evaluation of his Parkinson's. He is previously seen by Dr. Poe. In regards to his Parkinson's he has been on two tablets 3 times a day and they are working to try to get more doses throughout the day as opposed to taking a doseright at bedtime. Currently he continues to take two tablets 3 times a day he takes his doses around 06:00, 11 30 a.m. although sometimes at lunch and 17:30. He does separate his pills from food somewhat but not always the best. He is noted improvement particularly if he misses a dose he can really notice worsening of his walking and overall movements speed. He has not tried a higher dose than two tablets 3 times a day. REVIEW OF SYSTEMS REVIEW OF SYSTEMS OBJECTIVE PHYSICAL EXAM General: Male in his 70s, alert, attentive, no acute distress Vitals: BP 124/78, HR 57 Neuro: Alert and interactive. Cranial nerves grossly symmetric. There is +2 rigidity in the left upper extremity with a cogwheeling component. +1 rigidity in the right upper extremity. A MRs are reduced in amplitude and frequency on the left greater than right in the hands/fingers and feet. His gait reveals a short stride length turning on block and 78 steps with a walker. For details of the neurologic examination, please see the neurologic examination form. 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 Carroll. Overall I discussed with him that my suspicion would bethat he does have parkinsonism and perhaps a vascular parkinsonism, although we could not rule out an underlying idiopathic Parkinson's disease. I discussed that in theory that treatment is the same for both; however typically in vascular parkinsonism, the response to Sinemet is less profound than in Parkinson's disease. I discussed with him that I would like to review his MRI of the brain from 2020 to better visualize the degree of confluent T2 FLAIR hyperintensities in the bilateral white matter. These have a frontal/basal ganglia predominance than vascular parkinsonism. Vascular parkinsonism would likely be at play. Discussed with him that in terms of his carbidopa-levodopa, I would continue 2 tablets 3 times a day for the time being. I would focus on trying to separate it from food by 45 minutes to 1 hour before to ensure adequate absorption of the medication. If after moving his doses from food he still has some difficulties with rigidity, he could increase the dose to 2-1/2 tablets 3 times a day for 1 week and then up to 3 tablets 3 times a day for 1 week as he tolerates. I encouraged him to go back down in dose if he has side effects. Questions answered to the best of my ability. Plan to see him back in approximately 1 year's time. Advance Care Planning Provided educational materials Total time 32 minutes documented in this encounter Plan of Treatment Upcoming Encounters Date Type Department Care Team (Late st Contact Info) Description 11/01/2023 1:30 PM CDT Office Visit Department of Sleep Medicine in [place], [place] [address] [phone] Audra Aleman APRN, C.N.P., D.N.P., M.S.N. [address] [phone] Scheduled Referrals Name Type Priority Associated Diagnoses Orde r Schedule Sleep Medicine - General consult (clinic) Outpatient Referral Routine Sleep Apnea Unspecified Expected: 04/15/2023 (Approximate), Expires: 07/16/2024 documented as of this encounter Visit Diagnoses Diagnosis Parkinsonism Unspecified (HCC) Sleep Apnea Unspecified documented in this encounter
--- OUTSIDE RECORDS SUMMARY | 2023-08-16 11:23 | XMS_ITS | Encounter Summary ---
Author Name Unknown Organization [facility] Address [address] [place] [address] Care Team Providers Care Manager Branch Name Role Phone Jamal CARLISLE DO, Robert William Primary Care Provide r Unavailable Desiree Patrick MD Unavailable Farrah Nicole APRN,CAFETERIA COUNTER ATTENDANT Unavailable Bry Echevarria MD Unavailable Jamal CARLISLE DO, Robert William Unavailable Unav Stephani Diaz MD Primary Care Provider Shruti Vergara RN Unavailable Unavailable Bianka Loera CNP Primary Care Provider [phone] Desiree Patrick MD Primary Care P rovider Encounter Details Date Type Department Care Team Description 01/03/2014 Historical Conversion [facility] Family Medicine [address] [place] [id number] Errol Berry II, DO Social History Tobacco Use Types Packs/Day Years Used Date Smoking Tobacco: Never Assessed Sex and Gender Information Value Date Recorded Sex Assigned at Not on file Gender Identity Not on file Sexual Orientation Not on file documented as of this encounter Last Filed Vital Signs Vital Sign Reading Time Taken Comments Blood Pressure 148/99 01/03/2014 12:00 AM CDT Pulse - - Temperature - - Respiratory Rate - - Oxygen Saturation - - Inhaled Oxygen Concentration - - Weight 92.5 kg (203 lb 15.9 oz) 06/25/2 014 12:00 AM CDT Height - - Body Mass Index - - documented in this encounter Progress Notes * Errol Berry II, DO - 01/03/2014 12:00 AM CDT CRISTIAN BLEDSOE : 1945 HX: [id number] DOS: 01/03/2014 CHIEF COMPLAINT: Back pain. HISTORY OF CHIEF COMPLAINT: This is a 68-year-old male who has had a history of back pain. He was seen many years ago and underwent physical therapy. He states that physical therapy seemed to get it stable. He has had worsening problems recently given the fact that he has had a dog that he has now been training, and he has been very active, and with the long winter he was doing more with his backthan usual. PHYSICAL EXAMINATION: VITALS: Vitals are reviewed in [employer].\RPlease see vitals tab for details. BACK: Shows paravertebral muscular contractures and spasms. NEUROLOGIC: Straight leg raising negative. Deep tendon reflexes 2/4. Musculoskeletal strength 5/5. Gait normal. IMPRESSION: 1. Lumbar spasm in patient who has known central spinal stenosis and foraminal narrowing in the lower lumbar spine. PLAN: 1. Physical therapy. 2. Baclofen 20 mg q.h.s. 3. Continue anti-inflammatory. 4. Ice, heat, and range of motion. Errol Berry II, D.O./jaj-06 Electronically signed by:ERROL BERRY D.O. Jan 17 2014 7:34AM SPECIAL PROCEDURES NURSE documented in this encounter Plan of Treatment Not on file documented as of this encounter Visit Diagnoses Not on filedocumented in this encounter Care Teams Manager Branch Relationship Specialty Start Date End Date Errol Berry II, DO PCP - General 11/22/06 08/17/19 Stephani Aleman MD PCP - General Family Medicine 08/18/19 09/16/20 Bianka Loera CNP [address] [place], [place] [address] [place] [address] PCP - General Nurse Practitioner Family 09/17/20 7/12/31 Desiree Patrick MD [address] [place] [address] PCP - General Electrophysiology 02/23/22 03/09/22 Desiree Patrick MD [address] [place] [address] 08/09/17 Farrah Nicole APRN,CAFETERIA COUNTER ATTENDANT [address] [place] [address] 08/09/17 Bry Echevarria MD [address] [place] [address] 08/09/17 Errol Berry II, DO 08/09/17 Shruti Vergara RN RN Registered Nurse 08/27/20 documented as of this encounter Additional Source Comments PLEASE NOTE: Replies to this message will not be received.[facility]
--- OUTSIDE RECORDS SUMMARY | 2023-08-16 11:23 | XMS_ITS | Continuity of Care Document ---
Author Name Unknown Organization [facility] Address [address] [place] [phone] Phone Care Team Providers Care Newspaper Writer Name Role Phone Timoteo Acosta D.O. Unavailable [...] Diagnoses Date Provider Providers Copied on Encounter [facility], [address] [place] [address], [id number], tel:[phone] [facility] No Information Dave Mahmood. [address] [place] [address], [id number], [place]. tel:[phone] [facility], [address] [place] [address], [id number], [place] tel:[phone] [facility] No Information Dave Mahmood. [address] [place] [address], [id number], [place]. tel:[phone] Referring Provider: Cherelle Borja [facility] [address], [place], [address]. tel:[phone] [facility], [address] [place] [address], [id number], [place] tel:[phone] [facility] No Information Dave Mahmood. [address] [place] [address], [id number], [place]. tel:[phone] Referring Provider: Cherelle Borja [facility] [address], [place], [address]. tel:[phone] OFFICE/OUTPATI ENT VISIT, EST [facility], [address] [place] [address], [id number], [place] tel:[phone] [facility] decreased vision (chief complaint) PCO-OSDrusen (degenerative ) of macula, left eye Dave Mahmood. [address] [place] [address], [id number], [place]. tel:[phone] Referring Provider: Cherelle Borja [facility] [address], [place], [address]. tel:[phone] [facility], [address] [place] [address], [id number], tel:[phone] [facility] No Information Dave Mahmood. [address] [place] [address], [id number], . tel:[phone] Referring Provider: Timoteo Zhao, [address] [place] [address], [id number]. tel:[phone] [facility], [address] [place] [address], [id number], tel:[phone] [facility] No Information Dave Mahmood. [address] [place] [address], [id number], [place]. tel:[phone] Referring Provider: Timoteo Zhao, [address] [place] [address], [address] [place] [address]. tel:[phone] OFFICE/OUTPATI ENT VISIT, [facility], [address] [place] [address], [address] [place] [address], tel:[phone] [facility] blurry vision (chief complaint) Cat-combined- ODCat-Pseudop hakia Dave Mahmood. [address] [place] [address], [id number], [place]. tel:[phone] Referring Provider: Timoteo Zhao, [address] [place] [address], [address] [place] [address]. tel:[phone] [facility], [address] [place] [address], [address] [place] [address], [place] tel:[phone] [facility] No Information Dave Mahmood. [address] [place] [address], [id number], [place]. tel:[phone] Referring Provider: Timoteo Zhao, [address] [place] [address], [address] [place] [address]. tel:[phone] [facility], [address] [place] [address], [id number], [place] tel:[phone] [facility] No Information Dave Mahmood. [address] [place] [address], [id number], [place]. tel:[phone] Referring Provider: Timoteo Zhao, [address] [place] [address], [id number]. tel:[phone] [facility], [address] [place] [address], [id number], tel:[phone] [facility] No Information Dave Mahmood. [address] [place] [address], [id number], [place]. tel:[phone] Referring Provider: Timoteo Zhao, [address] [place] [address], [id number]. tel:[phone] [facility], [address] [place] [address], [id number], tel:[phone] [facility] No Information Dave Mahmood. [address] [place] [address], [id number], [place]. tel:[phone] Referring Provider: [facility] [address], [place], [address]. tel:[phone] OFFICE/OUTPATI ENT VISIT, [facility], [address] [place] [address], [id number], [place] tel:[phone] [facility] 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 [address] [place] [address], [id number], [place]. tel:[phone] Referring Provider: Cherelle Borja [facility] [address], [place], [address]. tel:[phone] [facility], [address] [place] [address], [id number], [place] tel:[phone] [facility] No Information Dave Mahmood. [address] [place] [address], [id number], . tel:[phone] Referring Provider: Timoteo Zhao, [address] [place], [address]. 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
--- OUTSIDE RECORDS SUMMARY | 2023-08-16 11:23 | XMS_ITS | Encounter Summary ---
Author Name Unknown Organization [facility] Address [address] [place] [address] Care Team Providers Care Cable Repairer Name Role Phone Unavailable Primary Care Provider Unavailabl e Reason for Referral * Outpatient (Routine) - Closed Specialty Diagnoses / Procedures Referred By Malinda t Referred To Contact Neurology Diagnoses Parkinsonism Unspecified (HCC) Sleep Apnea Unspecified Marli Sauceda M.D. [address] [place] [address] [facility] Referral ID Status Reason Start Date Expiration Date Visits Re quested Visits Authorized [id number] Closed 02/10/2023 02/10/2024 1 1 Encounter Details Date Type Department Care Team (Late st Contact Info) Description 02/10/2023 [facility] [address] [place] [address] Marli Sauceda M.D. [address] [place] [address] Parkinson Disease (HCC) (Primary Dx); Sleep Apnea Unspecified Social History Tobacco Use Types Packs/Day Years Used Date Smoking Tobacco: Former Cigarettes Q uit: 1978 Smokeless Tobacco: Never Nutrition Answer Date Recorded Nutrition: EVOO Fat Source Unknown 01/27 Nutrition: Servings of Fruits/Vegetables per Day Not on file 01/27/2022 Dental Answer Date Recorded Dental: Regular Dentist Unknown 01/28/20 Sex and Gender Information Value Date Recorded Sex Assigned at Not on file Gender Identity Not on file Sexual Orientation Not on file documented as of this encounter Plan of Treatment Upcoming Encounters Date Type Department Care Team (Late st Contact Info) Description 11/01/2023 1:30 PM CDT Office Visit Department of Sleep Medicine in [place], [place] [address] [phone] Audra Aleman APRN, C.N.P., D.N.P., M.S.N. [address] [phone] Scheduled Referrals Name Type Priority Associated Diagnoses Orde r Schedule Neurology Referral Outpatient Referral Routine Parkinson Disease (HCC) Sleep Apnea Unspecified Expected: 02/10/2023 (Approximate), Expires: 05/13/2024 documented as of this encounter Visit Diagnoses Diagnosis Parkinsonism Unspecified (HCC)- Primary Sleep Apnea Unspecified documented in this encounter
--- OUTSIDE RECORDS SUMMARY | 2023-08-16 11:23 | XMS_ITS | Continuity of Care Document ---
Author Name Unknown Organization [facility] Address [employer] [address] [place] [address] Phone Care Team Providers Care Tumble Tailstock Turret Lathe Operator Name Role Phone VETO MALDONADO MD Unavailable Unavailable Procedures Procedure Date Subsqt Hosp-da E&m Minr Compl 7 Init Inpt Cons New/est Mod-hi 7 Advance Directives Directive Yes / No Effective Date File Name No Information Encounters Encounter Description Practice Location Reason(s) For Visit Diagnoses Date Provider Providers Copied on Encounter Subsqt Hosp-da E&m Minr Compl [facility], [id number], [place], [place], [id number], [place] tel:[phone] [facility] No Information TAY LASW. [address] [facility] [address], [place], [address], [place]. tel:[phone] Referring Provider: GISEL VERDE, [address] [place] [address] [address] [facility], [place], [id number]. tel:[phone] Init Inpt Cons New/est Mod-hi [facility], [address], [place], [place], [id number], [place] tel:[phone] [facility] No Information ISAC JOVANNY. [address], [address], [place], [place], [id number], [place]. tel:[phone] Referring Provider: GISEL VERDE, [address] [address], [place], [place], [id number]. tel:[phone] Family History Family Member Type Diagnosis Age At Onset No Information Payers Payer name Insurance type Covered republican ID Authoriza tion(s) No Information Social History Type Description Quantity Date Captured Comments Sex Male Smoking Status No Information Chief Complaint And Reason For Visit No Information History Of Present Illness Encounter Date Complaint History Of Prese nt Illness No Information Instructions Date Instruction Additional Infor mation No Information Assessments Type Assessment Date No Information
--- OUTSIDE RECORDS SUMMARY | 2023-08-16 11:23 | XMS_ITS | Encounter Summary ---
Author Name Unknown Organization [facility] Address [address] [place] [address] Care Team Providers Care Lathing Supervisor Name Role Phone Unavailable Primary Care Provider Unavailabl e Reason for Visit * Reason Comments Parkinson's Disease Follow up * Outpatient (Routine) - Closed Specialty Diagnoses / Procedures Referred By Malinda t Referred To Contact Neurology Cameron Poe M.D., M.P.H. [address] [place] [address] [facility] Referral ID Status Reason Start Date Expiration Date Visits Re quested Visits Authorized [id number] Closed 04/14/2022 04/13/2025 1 1 Encounter Details Date Type Department Care Team (Late Contact Info) Description 11/26/2022 10:15 AM CDT Office Visit Department of Neurology in [place], [place] [address] [place] [address] Cameron Poe M.D., M.P.H. [address] [place] [address] Apnea Sleep Obstructive (Primary Dx); Parkinson Disease (HCC) Social History Tobacco Use Types Packs/Day [...] Sign Reading Time Taken Comments Blood Pressure 129/84 11/26/2022 9:44 AM CDT Pulse 71 11/26/2022 9:44 AM CDT Temperature - - Respiratory Rate - - Oxygen Saturation - - Inhaled Oxygen Concentration - - Weight 88.1 kg (194 lb 3.6 oz) 11/27/19 9:44 AM CDT with shoes Height - - Body Mass Index 26.02 02/03/2022 2:05 PM CDT documented in this encounter Progress Notes * Cameron Poe M.D., M.P.H. - 11/26/2022 10:15 AM CDT SUBJECTIVE Referring Provider: Cameron Poe M.D., M.P.H. CHIEF COMPLAINT / REASON FOR VISIT Rohan Carroll is a 77 y.o. male who presents for evaluation of Parkinson's Disease (Follow up). HISTORY OF PRESENT ILLNESS This patient is the visit with his . He is sleep disordered breathing and ASV therapy but the compliance download reveals he is hardly using his therapy at all. His auto SV settings are a minimumEPAP of seven maximum EPAP of 15 and maximum pressure support 15 with minimum pressure support is 0. He is used pressure support therapy days. His residual AHI when using it is 0.8. At the last visit I told the patient and his that I thought he had Parkinson's disease and we started him on Sinemet. The starting dose of Sinemet was 25 mg/100 mg, one tablet t.i.d.. This has been helpful but sometimes he notices that he has difficulty initiating movement. He particularly has difficulty standing up. He is also very constipated and having more trouble with memory. He is scheduled to be enrolled in the [employer] program. He also has significant constipation having failedMiraLax he is now taking Dulcolax. He is not taking any higher dose of Sinemet. There is no historyof dream enactment. He does not have any falls. No past medical history on file. No past surgical history on file. MEDICATIONS: Current Outpatient Medications: carbidopa-levodopa (SINEMET) 25-100 mg per tablet, Take 2 tablets by mouth 3 (three) times a day., Disp: 540 tablet, Rfl: 3 cetirizine (ZyrTEC) 10 mg chewable tablet, Chew 10 mg as needed for allergies., Disp: , Rfl: DME CPAP, BiPAP autoSV Advanced or VPAP adapt SV auto Max EPAP: 15 Min EPAP: 7 Max PS: 15 Min PS: 0, Disp: , Rfl: dofetilide (TIKOSYN) 250 mcg capsule, Take 250 mg by mouth 2 (two) times a day., Disp: , Rfl: donepeziL (ARICEPT) 10 mg tablet, Take 10 mg by mouth daily., Disp: , Rfl: DUCODYL, BISACODYL, ORAL, Take by mouth., Disp: , Rfl: ipratropium (ATROVENT) 21 mcg (0.03 %) nasal spray, Administer 2 sprays into each nostril 3 (three)times a day as needed for rhinitis., Disp: , Rfl: Jantoven 5 mg tablet, Take 5 mg by mouth daily., Disp: , Rfl: lisinopriL (PRINIVIL,ZESTRIL) 10 mg tablet, Take 10 mg by mouth daily., Disp: , Rfl: magnesium hydroxide 400 mg/5 mL suspension, Take 30 mL by mouth., Disp: , Rfl: memantine (NAMENDA) 10 mg tablet, TAKE 1 TABLET (10 MG) BY MOUTH TWICE DAILY., Disp: , Rfl: cholecalciferol, vitamin D3, 25 mcg (1,000 Unit) tablet, Take 25 mcg by mouth daily., Disp: , Rfl: polyethylene glycol (MIRALAX) 17 gram powder packet, Take 17 g by mouth daily. Dissolve each 17 g dose in 240 mLs (8 ounces) of beverage., Disp: , Rfl: ALLERGY: Allergies Allergen Reactions Penicillin G Hives Sulfa (Sulfonamide Antibiotics) Rash No family history on file. Social History Socioeconomic History Marital status: Spouse name: Not on file Number of children: Not on file Years of education: Not on file Highest education level: Not on file Occupational History Not on file Tobacco Use Smoking status: Former Types: Cigarettes Quit date: 1978 Years since quittin.4 Smokeless tobacco: Never Substance and Sexual Activity [...] file Housing Stability: Not on file OBJECTIVE Vitals: 11/26/22 0944 BP: 129/84 BP Location: Right arm Patient Position: Sitting Cuff Size: Large Pulse: 71 Weight: 88.1 kg PHYSICAL EXAM COGNITION: Alert and oriented x 4. CRANIAL NERVES: wincher II-XII intact and symmetric. Has decreased facial expression and blink rate. MOTOR: Full strength throughout the upper and lower extremities bilaterally both proximally and distally. Increased tone and cogwheel rigidity. No pronator drift. No tremor. REFLEXES: Normal and symmetric at the biceps, triceps, brachioradialis, knees, and ankles. SENSORY: normal sensation to touch CEREBELLAR: ARMs-normal GAIT: He takes two arms to stand and then he has camptocormia with a shuffling gait. Impression: Encounter Diagnoses Name Primary? Apnea Sleep Obstructive Yes Parkinson Disease (HCC) I have encouraged him to begin using his ASV therapy again I explained to him that it would be goodfor his brain health be breathing all night and sleeping especially getting deeper sleep primarily stage III when the brain would have best opportunity to get rid of some of the breakdown products. I am going to increase his Sinemet dose to two tablets t.i.d.. He had been taking his dose at 6:00 a.m. to p.m. and 9:00 p.m.. I told him it would make more sense to take it to 6:00 a.m. 11:00 a.m. and 530 p.m. as this would give him his final dose with some hours of activity to use. I do not see much utility in taking the dose before he goes to sleep. I personally spent 40 minutes in care of the patient today. Time includes both non face to face and face to face patient care. Cameron Poe M.D., M.P.H. documented in this encounter Plan of Treatment Upcoming Encounters Date Type Department Care Team (Late st Contact Info) Description 11/01/2023 1:30 PM CDT Office Visit Department of Sleep Medicine in [place], [place] [address], [place] [address] Audra Aleman APRN, C.N.P., D.N.P., M.S.N. [address], [place] [address] documented as of this encounter Visit Diagnoses Diagnosis Apnea Sleep Obstructive- Primary Parkinsonism Unspecified (HCC) documented in this encounter
--- OUTSIDE RECORDS SUMMARY | 2023-08-16 11:23 | XMS_ITS | Encounter Summary ---
Author Name Unknown Organization [facility] Address [address] [place] [address] Care Team Providers Care Manager Of Digital Name Role Phone Unavailable Primary Care Provider Unavailabl e Reason for Visit * Reason Comments Consult * Outpatient (Routine) - Closed Specialty Diagnoses / Procedures Referred By Malinda wan Referred To Contact Sleep Medicine Diagnoses Sleep Apnea Unspecified Vic Mae M.D. [address] [address] [facility] Region Referral ID Status Reason Start Date Expiration Date V isits Requested Visits Authorized [id number] Closed Specialty Services Required 04/15/2023 04/14/2024 1 1 Encounter Details Date Type Department Care Team (Latest Contact Info) Description 05/17/2023 2:00 PM LEAD JAVA SOFTWARE ENGINEER Comprehensive Visit Department of Sleep Medicine in [place], [place] [address] [place] [address] Audra Aleman APRN, C.N.P., D.N.P., M.S.N. [address] [place] [address] Primary Central Sleep Apnea (Primary Dx); Obstructive Sleep Apnea Adult Social History Tobacco Use Types Packs/Day Years Used Date Smoking Tobacco: Former Cigarettes Q uit: 1978 Smokeless Tobacco: Never Tobacco Cessation:Counseling Given: Not Answered Nutrition Answer Date Recorded Nutrition: EVOO Fat Source Unknown 01/27 Nutrition: Servings of Fruits/Vegetables per Day Not on file 01/27/2022 Dental Answer Date Recorded Dental: Regular Dentist Unknown 01/28/20 22 Sex and Gender Information Value Date Recorded Sex Assigned at Not on file Gender Identity Not on file Sexual Orientation Not on file documented as of this encounter Last Filed Vital Signs Vital Sign Reading Time Taken Comments Blood Pressure 136/82 05/17/2023 1:44 PM LEAD JAVA SOFTWARE ENGINEER Pulse 70 05/17/2023 1:44 PM LEAD JAVA SOFTWARE ENGINEER Temperature 36.8 ??C (98.2 ??F) 05/17/2023 1:44 PM CS T Respiratory Rate - - Oxygen Saturation - - Inhaled Oxygen Concentration - - Weight 87.3 kg (192 lb 7.4 oz) 05/17/2023 1:44 P M LEAD JAVA SOFTWARE ENGINEER Height - - Body Mass Index 25.79 04/15/2023 2:57 PM CDT documented in this encounter Patient Instructions * Patient Instructions* Audra Aleman APRN, C.N.P., D.N.P., M.S.N. - 05/17/2023 2:00 PM LEAD JAVA SOFTWARE ENGINEER -Let's try an under the nose style full face mask. If you like this but don't like the style or setup, can inquire with your supplier about looking at the different styles. -If you don't end up liking the under the nose style mask as well, try a small size of over nose full face mask OR silicone seal rather than foam to see if that helps minimize air leaks. -I will adjust your pressures slightly to see if a more consistent pressure might be more comfortable for you with less leaks. -Can adjust ramp time to your preference. -I will run a download report on your machine in a few weeks and contact you via the portal (or phone, if unable to contact you that way) to see how things are going. We can adjust settings or masks based on how you're doing. -Make sure you wear your machine every night in order for us to get more information on how we can best help you. JAVA SOFTWARE ENGINEER documented in this encounter Progress Notes * Audra Aleman APRN, C.N.P., D.N.P., M.S.N. - 05/17/2023 2:00 PM LEAD JAVA SOFTWARE ENGINEER SUBJECTIVE CHIEF COMPLAINT / REASON FOR VISIT Consult HISTORY OF PRESENT ILLNESS Rohan Carroll is a 77 y.o. male who presents today for Consult. 2017: Diagnosed with severe complex sleep apnea by PSG at [facility]. Overall AHI 63. Prescribed ASV at an unknown setting. [id number]: Compliance waned due to increased stress and new diagnosis of dementia. 2021: Switched from Respironics to ResMed machine due to recall. Residual AHI was 3.0 on minimum EPAP 7, max 15. Minimum pressure support 0, max 15 with limited data. And he is accompanied today by his who helps provide a history. He states that he is really not using his machine very often because when he does he gets a lot of air leaks. He is using over thenose style full face mask, foam seal. He feels that a lot of his leaks occur near the cheeks. He has ramp time of 10 minutes and feels as though the leaks increase once the ramp time is completed. Heis in the process of narrowing down a formal diagnosis for his neurological condition which is reassuring for him. ASV download shows 1% compliance over the past 90 days with an average daily usage of 2 hours and 7minutes. ASV is set to minimum EPAP 7, maximum EPAP 15, minimum pressure support 0, maximum pressure support 15. Median leaks are 0 liters/minute with a 95th percentile of 10.8. Residual AHI is 14.6. The patient's allergies and current medications were reviewed. OBJECTIVE Blood pressure 136/82, pulse 70, temperature 36.8 ??C, temperature source Temporal, weight 87.3 kg. PHYSICAL EXAMINATION General: Alert, pleasant male appearing in no acute distress. Responds appropriately to questions and contributes meaningfully to conversation. Lungs: No cough on exam today. Respirations are easy and unlabored. ASSESSMENT / PLAN #1 Obstructive Sleep Apnea Adult #2 Primary Central Sleep Apnea He has been unable to tolerate his ASV recently primarily due to air leaks. We are going to have him try an over the nose style full face mask with a silicone seal, as previous documentation does suggest that compliance was better a few years ago at which point he feels like he may have used a silicone seal. He was also shown an under the nose style full face mask which he would like to explore as well. Both of these were provided for him today and he was encouraged to connect with his supplierif he likes these but would like to try different style or size. I also wonder how much his variable pressures are contributing to his intolerance and air leaks. Rosanna switch his EPAP to 10 rather than a range and we increased his minimum pressure support to 3 (maximum remains at 15). We left his ramp time at 10 minutes as it has been but we did discuss how andwhy he might want to make further adjustments to this over time. Finally, we discussed that the only way for us to really be able to troubleshoot his system is withconsistent use. I really encouraged him to at least put it on every single night. He should keep track of how he is feeling and what is not tolerable so we can help narrow down adjustments. We also discussed the importance of ensuring good quality sleep and treating sleep apnea in not only improving his quality of life and symptom burden but also in mitigating cerebrovascular and cardiovascular risk factors especially in light of his possible Parkinson's and dementia. I will plan to run a download report in a few weeks to see how he is doing with the changes noted above. We will plan follow up in clinic in about 3 months. We did discuss the option of pursuing in-lab titration sleep study to identify most therapeutic settings and masks as needed. His wondersabout potentially a split night study even although it does not appear that he has had significant c linical change since his initial diagnosis so utility of that would be questionable. The patient and his verbalized understanding of the plan of care and was in agreement. All questions were answered today. Total time 45 minutes. JAVA SOFTWARE ENGINEER documented in this encounter Plan of Treatment Upcoming Encounters Date Type Department Care Team (Late st Contact Info) Description 11/01/2023 1:30 PM CDT Office Visit Department of Sleep Medicine in [place], [place] [address], [place] [address] Audra Aleman APRN, C.N.P., D.N.P., M.S.N. [address] [place] [address] documented as of this encounter Visit Diagnoses Diagnosis Primary Central Sleep Apnea- Primary Obstructive Sleep Apnea Adult documented in this encounter
--- OUTSIDE RECORDS SUMMARY | 2023-08-16 11:23 | XMS_ITS | Encounter Summary ---
Author Name Unknown Organization [facility] Address [address] [place] [address] Care Team Providers Care Flagger Name Role Phone Unavailable Primary Care Provider Unavailabl e Encounter Details Date Type Department Care Team (Late st Contact Info) Description 08/25/2022 Clinical Communication Department of Neurology in [address] [phone] Cameron Poe M.D., M.P.H. [address] [id number] Social History Tobacco Use Types Packs/Day Years Used Date Smoking Tobacco: Former Cigarettes Q uit: 1979 Smokeless Tobacco: Never Nutrition Answer Date Recorded Nutrition: EVOO Fat Source Unknown 01/27 Nutrition: Servings of Fruits/Vegetables per Day Not on file 01/27/2022 Dental Answer Date Recorded Dental: Regular Dentist Unknown 01/28/20 Sex and Gender Information Value Date Recorded Sex Assigned at Not on file Gender Identity Not on file Sexual Orientation Not on file documented as of this encounter Miscellaneous Notes * Telephone Encounter - Viridiana Carson L.PWilliamN. - 08/25/2022 1:45 PM WEIGHTER Office notes faxed per request. HTER documented in this encounter Plan of Treatment Upcoming Encounters Date Type Department Care Team (Late st Contact Info) Description 11/01/2023 1:30 PM CDT Office Visit Department of Sleep Medicine in [place], [place] [address] [place] [address] Audra Aleman APRN, C.N.P., D.N.P., M.S.N. [address] [place] [address] documented as of this encounter Visit Diagnoses Not on filedocumented in this encounter
--- OUTSIDE RECORDS SUMMARY | 2023-08-16 11:23 | XMS_ITS | Clinical Summary ---
Author Name Unknown Organization [facility] Address [address] [place] [address] Care Team Providers Care Warehouse Coordinator Name Role Phone Unavailable Primary Care Provider Unavailabl e Source Comments Patient records contain information from all sites at [facility]. For routine questions regarding patient records, call [phone] during business hours, M-F 8:00 AM - 5:00 PM Central Time. Record requests for emergency care only can be directed to [phone] at any time.[facility] Allergies Active Allergy Reactions Criticality Noted Date Comments Penicillin G Hives (Reselect Reaction) 02/04/20 22 Sulfa (Sulfonamide Antibiotics) Rash 02/03/2022 Medications Medication Sig Dispensed Refills Start Date End Date Status dofetilide (TIKOSYN) 250 mcg capsule Take 250 mg by mouth 2 (two) times a day. 0 12/26/2021 Active memantine (NAMENDA) 10 mg tablet TAKE 1 TABLET (10 MG) BY MOUTH TWICE DAILY. 0 11/17/2021 Active lisinopriL (PRINIVIL,ZESTRIL) 10 mg tablet Take 10 mg by mouth daily. 0 01/19/2022 Active donepeziL (ARICEPT) 10 mg tablet Take 10 mg by mouth daily. 0 11/29/2021 Active Jantoven 5 mg tablet Take 5 mg by mouth daily. 0 01/29/2022 Active DME CPAP BiPAP autoSV Advanced or VPAP adapt SV auto Max EPAP: 15 Min EPAP: 7 Max PS: 15 Min PS: 0 0 02/22/2019 Active DUCODYL, BISACODYL, ORAL Take by mouth. 0 Active carbidopa-levodopa (SINEMET) 25-100 mg per tablet Take 2.5 tablets by mouth 3 (three) times a day. 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 Primary Central Sleep Apnea (Primary Dx); Obstructive Sleep Apnea Adult from Last 3 Months Social History Tobacco Use Types Packs/Day Years Used Date Smoking Tobacco: Former Cigarettes Q uit: 1979 Smokeless Tobacco: Never Tobacco Cessation:Counseling Given: Not [...] Comments Blood Pressure 136/82 05/17/2023 1:44 PM PHYSICIAN ANESTHESIOLOGIST Pulse 70 05/17/2023 1:44 PM PHYSICIAN ANESTHESIOLOGIST Temperature 36.8 ??C (98.2 ??F) 05/17/2023 1:44 PM CS T Respiratory Rate - - Oxygen Saturation - - Inhaled Oxygen Concentration - - Weight 87.3 kg (192 lb 7.4 oz) 05/17/2023 1:44 P M PHYSICIAN ANESTHESIOLOGIST Height 184 cm (6' 0.44) 04/15/2023 2:57 PM CDT Body Mass Index 25.79 04/15/2023 2:57 PM CDT Plan of Treatment Upcoming Encounters Date Type Department Care Team (Late st Contact Info) Description 11/01/2023 1:30 PM CDT Office Visit Department of Sleep Medicine in [place], [place] [address] [address] Audra Aleman APRN, C.N.P., D.N.P., M.S.N. [address] [place] [address] Health Maintenance Due Date Last Done Comments Creatinine Level (Kidney Fun ction Test) 1945 Hepatitis C Screening 1945 Potassium Level 1945 Sodium Level 1944 Zoster Vaccines (2 of 3) 03/25/2010 01/28/2010 Influenza Vaccine (#1) 2023 2, 03/25/2021, 03/12/2020, Additional history exists Fall Risk Screen (Annual) 07/12/2023 DTaP,Tdap,and Td Vaccines (2 - Td or Tdap) 08/21/2023 08/21/2013 Office Visit for Blood Press ure Check / Re-check 05/17/2024 05/17/2023 Pneumococcal vaccine (65+ years) Completed 08/28/2016, 08/28/2015, 01/28/2010 COVID-19 Vaccine Completed 04/17/2023, , 11/04/2021, Additional history exists
--- OUTSIDE RECORDS SUMMARY | 2023-08-16 11:23 | XMS_ITS | Encounter Summary ---
Author Name Unknown Organization [facility] Address [address] [place] [address] Care Team Providers Care Counseling Director Name Role Phone Unavailable Primary Care Provider Unavailabl e Reason for Visit * Reason Onset Date Comments Order Request 01/05/2023 Encounter Details Date Type Department Care Team (Late Contact Info) Description 01/05/2023 Clinical Communication Department of Neurology in [place], [place] [address] [place] [phone] Cameron Poe M.D., M.P.H. [address] [place] [address] Order Request Social History Tobacco Use Types Packs/Day [...] Encounters Date Type Department Care Team (Late Contact Info) Description 11/01/2023 1:30 PM CDT Office Visit Department of Sleep Medicine in [place], [place] [address], [place] [address] Audra Aleman APRN, C.N.P., D.N.P., M.S.N. [address], [place] [address] documented as of this encounter Visit Diagnoses Not on filedocumented in this encounter
--- OUTSIDE RECORDS SUMMARY | 2023-08-16 11:23 | XMS_ITS | Encounter Summary ---
Author Name Unknown Organization [facility] Address [address] [place] [address] Care Team Providers Care Bus Boy Name Role Phone Jamal CARLISLE DO, Robert William Primary Care Provide r Unavailable Desiree Patrick MD Unavailable Farrah Nicole APRN,NECKTIE STITCHER Unavailable [phone] Bry Echevarria MD Unavailable Jamal CARLISLE DO, Robert William Unavailable Unav xiable Stephani Aleman MD Primary Care Provider Shruti Vergara RN Unavailable Unavailable Bianka Loera CNP Primary Care Provider [phone] Desiree Patrick MD Primary Care P rovider Encounter Details Date Type Department Care Team Description 11/15/2006 Clinic Encounter [facility] Dermatology [address] [place] [address] Ganga Anderson MD Discharge Disposition: Auto Discharge Social History Tobacco Use Types Packs/Day Years Used Date Smoking Tobacco: Never Assessed Sex and Gender Information Value Date Recorded Sex Assigned at Not on file Gender Identity Not on file Sexual Orientation Not on file documented as of this encounter Progress Notes * Ganga Anderson MD - 2006 12:00 AM CDT Rohan Carroll : 1945 E: Ganga Anderson MD/[facility] DERMATOLOGY OFFICE VISIT CHART: [id number] P Date of Service: 2006 Doc #: [id number] P Attending Physician: None available SUBJECTIVE: This 61-year-old male is here today for evaluation of his skin. In particular, he has a small area along his left axilla that is bothering him. It gets sore and irritated. He is otherwise doing well. OBJECTIVE: The patient was examined waist up. Some faint background actinic damage. He has a larger grijalva verrucous papule, mildly inflamed, in the left axilla. PROCEDURE: Verbal consent was obtained after discussion of risks. These included infection, bleeding, scarring, recurrence, and need for further procedures. The area along the left axilla was cleaned with alcohol. Lidocaine 1% with epinephrine, 1 cc was used locally. Using a Gabrielle blade, the skin biopsy was then performed. Drysol was used for hemostasis. Bacitracin ointment and Band-Aid were applied. No complications. Wound sheet was given and discussed. ASSESSMENT: 1. Actinic damage, stable. 2. Seborrheic keratoses. 3. Probable irritated seborrheic keratosis, left arm, growing and changing. PLAN: 1. Specimen sent for histopathology. 2. Wound care discussed. 3. Photoprotection. 4. Call him with the result and we will set up treatment as indicated. [facility] documented in this encounter Plan of Treatment Not on file documented as of this encounter Visit Diagnoses Not on filedocumented in this encounter Care Teams Bus Boy Relationship Specialty Start Date End Date Casey Berry II, DO PCP - General 11/22/06 08/17/19 Stephani Aleman MD PCP - General Family Medicine 08/18/19 09/16/20 Bianka Loera CNP [address] [place] [address] [address] [place] [address] PCP - General Nurse Practitioner Family 09/17/20 7/2 12/31 Desiree Patrick MD [address] [facility] [place] [address] PCP - General Electrophysiology 02/23/22 03/09/22 Desiree Patrick MD [address] [facility] [place] [address] 08/09/17 Farrah Nicole APRN,NECKTIE STITCHER [address] [facility] [place] [address] 08/09/17 Bry Echevarria MD [address] [place] [place] [address] [place] [address] 08/09/17 Casey Berry II, DO 08/09/17 Shruti Vergara RN RN Registered Nurse 08/27/20 documented as of this encounter Additional Source Comments PLEASE NOTE: Replies to this message will not be received.[facility] and [facility]
--- OUTSIDE RECORDS SUMMARY | 2023-08-16 11:23 | XMS_ITS ---
Author Name Unknown Organization [facility] Address [address] [place] [address] Care Team Providers Care Circulation Crew Leader Name Role Phone Unavailable Unavailable Unavailable Surgery Details Not on file Complications Check Surgery Details section. Procedure Estimated Blood Loss Check Surgery Details section. Procedure Findings Check Surgery Details section. Procedure Specimens Taken Check Surgery Details section.
--- OUTSIDE RECORDS SUMMARY | 2023-08-16 11:23 | XMS_ITS | Encounter Summary ---
Author Name Unknown Organization [facility] Address [address] [place] [address] Care Team Providers Care Molding Cutter Name Role Phone Jamal CARLISLE DO, Robert William Primary Care Provide r Unavailable Desiree Patrick MD Unavailable Farrah Nicole APRN,HOSE WRAPPER Unavailable Bry Echevarria MD Unavailable [phone] Jamal CARLISLE DO, Robert William Unavailable Unav ailable Stephani Aleman MD Primary Care Provider [phone] Shruti Vergara RN Unavailable Unavailable Bianka Loera CNP Primary Care Provider Desiree Patrick MD Primary Care P rovider Encounter Details Date Type Department Care Team Description 12/01/2006 HIM Senior Qc Technician Generic Senior Qc Technician [address] [place] [address] Social History Tobacco Use Types Packs/Day Years Used Date Smoking Tobacco: Never Assessed Sex and Gender Information Value Date Recorded Sex Assigned at Not on file Gender Identity Not on file Sexual Orientation Not on file documented as of this encounter Plan of Treatment Not on file documented as of this encounter Visit Diagnoses Not on filedocumented in this encounter Care Teams Molding Cutter Relationship Specialty Start Date End Date Casey Berry II, DO PCP - General 11/22/06 08/17/19 Stephani Aleman MD PCP - General Family Medicine 08/18/19 09/16/20 Bianka Loera CNP [address] [place] [address] PCP - General Nurse Practitioner Family 09/17/2001/10 Desiree Patrick MD [address] [place] [address] PCP - General Electrophysiology 02/23/22 03/09/22 Desiree Patrick MD [address] [place] [facility] [address] 08/09/17 Farrah Nicole APRN,HOSE WRAPPER [address] [place] [address] 08/09/17 Bry Echevarria MD [address] [place] [phone] 08/09/17 Casey Berry II, DO 08/09/17 Shruti Vergara, RN RN Registered Nurse 08/27/20 documented as of this encounter Additional Source Comments PLEASE NOTE: Replies to this message will not be received.[facility] and [facility]
--- OUTSIDE RECORDS SUMMARY | 2023-08-16 11:23 | XMS_ITS | Encounter Summary ---
Author Name Unknown Organization [employer] Address [address] [place] [address] Care Team Providers Care Frontend Engineer Name Role Phone Jamal CARLISLE DO, Robert William Primary Care Provide r Unavailable Desiree Patrick MD Unavailable Farrah Nicole APRN,PATIENT SERVICES TECHNICIAN Unavailable [phone] Bry Echevarria MD Unavailable Jamal CARLISLE DO, Robert William Unavailable Unav xiable Stephani Aleman MD Primary Care Provider Shruti Vergara RN Unavailable Unavailable Bianka Loera CNP Primary Care Provider [phone] Desiree Patrick MD Primary Care P rovider Encounter Details Date Type Department Care Team Description 08/22/2014 Historical Conversion [facility] Family Medicine [address] [place] [address] Casey Berry II, DO Social History Tobacco Use Types Packs/Day Years Used Date Smoking Tobacco: Never Assessed Sex and Gender Information Value Date Recorded Sex Assigned at Not on file Gender Identity Not on file Sexual Orientation Not on file documented as of this encounter Progress Notes * Casey Berry II, DO - 01/29/2015 12:00 AM CDT CRISTIAN BLEDSOE : 1945 HX: [id number] DOS: 01/29/2015 CHIEF COMPLAINT: Follow up after physical exam. HISTORY OF CHIEF COMPLAINT: This is a 69-year-old male who is coming in today to follow up after physical examination. His vitamin D level is normal at this time. We can cut back to a 5,000 international unit daily. We did discuss with him about his medications and his blood work. We did discuss with him about the fact that he had esophageal spasms, medications that he can use for it and how wellthe medications are doing. He states that things seem to be doing pretty well and we did discuss how he can taper off of the Reglan if he was no longer needing it. Beyond this, there is no other major complaints. PHYSICAL EXAMINATION: VITALS: Vitals are reviewed in Allscripts. Please see vitals tab for details. EYES: Pupils equal, round, reactive to light and accommodation. Extraocular muscles intact. Funduscopic exam benign. EARS: Tympanic membrane intact, cone of light noted. THROAT: No erythema, no lesion. HEART: Regular rate and rhythm without murmur, S3, S4, gallop, or rub. PMI nondisplaced. LUNGS: Clear to auscultation without egophony, wheeze, bronchial breath sounds, change in tactile fremitus. IMPRESSION: 1. Low vitamin D, which is now within normal limit. 2. Esophageal spasms without any symptoms. PLAN: 1. As above. Casey Berry II, D.O./pj- 30 Electronically signed by:Casey Berry D.O. Feb 11 2015 7:55AM URBAN GARDENING SPECIALIST * Casey Berry II, DO - 09/10/2014 12:00 AM CST CRISTIAN BLEDSOE : 1945 HX: [id number] DOS: 09/10/2014 CHIEF COMPLAINT: Follow up of swallow study. HISTORY OF CHIEF COMPLAINT: This is a 68-year-old male who is coming in today for follow up of swallow study. Patient was found to have some motility problems. We did discuss with him about the possibility of difficulties to include strictures and nutcracker esophagus. We discussed with him optionsof either EDG or trying medications. In discussion with patient at this time, he states that he would like to try medications. PHYSICAL EXAMINATION: VITALS: Vitals are reviewed in Allscripts. Please see vitals tab for details. Physical exam was deferred as recently done. IMPRESSION: 1. Reflux with signs of abnormal peristolic motion. PLAN: 1. Reglan 5 mg to titrate up to one with meals. Contact me in two weeks to let me know how the medication makes him feel. Casey Berry II, D.O./pj- 18 Electronically signed by:Casey Berry D.O. Sep 26 2014 3:33PM URBAN GARDENING SPECIALIST documented in this encounter Miscellaneous Notes * Letter - Casey Berry II, DO - 12/06/2014 12:00 AM CDT I have noticed that the lab work [...] this letter. You are due for a Vitamin D, total at this time. Please call if you have any questions. Casey Berry DO [facility] Electronically signed by:DEYANIRA FRANCOIS Dec 06 2014 9:03AM URBAN GARDENING SPECIALIST documented in this encounter Plan of Treatment Not on file documented as of this encounter Visit Diagnoses Not on filedocumented in this encounter Care Teams Frontend Engineer Relationship Specialty Start Date End Date Casey Berry II, DO PCP - General 11/22/06 08/17/19 Stephani Aleman MD PCP - General Family Medicine 08/18/19 09/16/20 Bianka Loera PARAMEDIC RN [address] [place] [address] PCP - General Nurse Practitioner Family 09/17/20 712/31 Desiree Patrick MD [address] [place] [address] PCP - General Electrophysiology 02/23/22 03/09/22 Desiree Patrick MD [address] [place] [address] 08/09/17 Farrah Nicole APRN,PATIENT SERVICES TECHNICIAN [address] [place] [address] 08/09/17 Bry Echevarria MD [address] [place] [address] [place] [address] 08/09/17 Casey Berry II, DO 08/09/17 Shruti Vergara RN RN Registered Nurse 08/27/20 documented as of this encounter Additional Source Comments PLEASE NOTE: Replies to this message will not be received.[facility] and [facility]
--- OUTSIDE RECORDS SUMMARY | 2023-08-16 11:23 | XMS_ITS | Referral Summary ---
Author Name Unknown Organization [facility] Address [address] [place] [address] Care Team Providers Care Song Writer Name Role Phone Unavailable Primary Care Provider Unavailabl e Source Comments Patient records contain information from all sites at [facility]. For routine questions regarding patient records, call [phone] during business hours, M-F 8:00 AM - 5:00 PM Central Time. Record requests for emergency care only can be directed to [phone] at any time.[facility] Encounters Date Type Department Care Team Description 05/17/2023 2:00 PM ALTERATION TAILOR Comprehensive Visit Department of Sleep Medicine in [place], [place] [address] [place] [address] Audra Aleman APRN, C.N.P., D.N.P., M.S.N. Primary Central Sleep Apnea (Primary Dx); Obstructive Sleep Apnea Adult from Last 3 Months Allergies Active Allergy Reactions Criticality Noted Date [...] Rupture 2015 Overview: 4.2 x 4.[address] [facility] [address] Social History Tobacco Use Types Packs/Day Years [...] Comments Blood Pressure 136/82 05/17/2023 1:44 PM ALTERATION TAILOR Pulse 70 05/17/2023 1:44 PM ALTERATION TAILOR Temperature 36.8 ??C (98.2 ??F) 05/17/2023 1:44 PM CS T Respiratory Rate - - Oxygen Saturation - - Inhaled Oxygen Concentration - - Weight 87.3 kg (192 lb 7.4 oz) 05/17/2023 1:44 P M ALTERATION TAILOR Height 184 cm (6' 0.44) 04/15/2023 2:57 PM CDT Body Mass Index 25.79 04/15/2023 2:57 PM CDT Plan of Treatment Upcoming Encounters Date Type Department Care Team (Late st Contact Info) Description 11/01/2023 1:30 PM CDT Office Visit Department of Sleep Medicine in [place], [place] [address] [phone] Audra Aleman APRN, C.N.P., D.N.P., M.S.N. [address] [address] [address] M[address] [place] [address]
--- OUTSIDE RECORDS SUMMARY | 2023-08-16 11:23 | XMS_ITS | Encounter Summary ---
Author Name Unknown Organization [facility] [employer] Address [address] [place] [address] Care Team Providers Care Pearl Stringer Name Role Phone Jamal CARLISLE DO, Robert William Primary Care Provide r Unavailable Desiree Patrick MD Unavailable Farrah Nicole APRN,MACHINE WOODWORKING SANDER Unavailable Bry Echevarria MD Unavailable Jamal CARLISLE DO, Robert William Unavailable Unav xiable Stephani Aleman MD Primary Care Provider Shruti Vergara RN Unavailable Unavailable Bianka Loera CNP Primary Care Provider [phone] Desiree Patrick MD Primary Care P rovider Encounter Details Date Type Department Care Team Description [address] [address] Social History Tobacco Use Types Packs/Day Years Used Date Smoking Tobacco: Never Assessed Sex and Gender Information Value Date Recorded Sex Assigned at Not on file Gender Identity Not on file Sexual Orientation Not on file documented as of this encounter Procedure Notes * JOSE COTO - 2006 2:13 PM CDTAssociated Order(s): DERMATOPATHOLOGY - S documented in this encounter Plan of Treatment Not on file documented as of this encounter Procedures Procedure Name Priority Date/Time Associated Diagnosis Comments DERMATOPATHOLOGY - S 2006 2:13 PM CDT documented in this encounter Results * DERMATOPATHOLOGY - S (2006 2:13 PM CDT) Narrative Procedure Note ELLIOT, SCAN - 2006 2:13 PM CDT Scan Elliot PROCEDURE NOTE documented in this encounter Visit Diagnoses Not on filedocumented in this encounter Care Teams Pearl Stringer Relationship Specialty Start Date End Date Casey Berry II, DO PCP - General 11/22/06 08/17/19 Stephani Aleman MD PCP - General Family Medicine 08/18/19 09/16/20 Bianka Loera ELECTRIC ENGINE MECHANIC [address] [place] [address] [address] [place] [address] PCP - General Nurse Practitioner Family 09/17/20 712/31 Desiree Patrick MD [address] [place] [address] PCP - General Electrophysiology 02/23/22 03/09/22 Desiree Patrick MD [address] [place] [address] 08/09/17 Farrah Nicole APRN,MACHINE WOODWORKING SANDER [address] [place] [address] 08/09/17 Bry Echevarria MD [address] [address] 08/09/17 Casey Berry II, DO 08/09/17 Shruti Vergara RN RN Registered Nurse 08/27/20 documented as of this encounter Additional Source Comments PLEASE NOTE: Replies to this message will not be received.[facility] and [facility]
--- OUTSIDE RECORDS SUMMARY | 2023-08-16 11:23 | XMS_ITS | Continuity of Care Document ---
Author Name Unknown Organization [facility] Address [address] [place] [address] Phone Care Team Providers Care Quilt Stuffer Name Role Phone [facility] MD, [facility] Unavailable Unavailable Allergies, Adverse Reactions, Alerts Substance Reaction Status Criticality Sulfa (Sulfonamide Antibiotics) rash Active No Information PENICILLIN rash Active No Information Medications Medication Instructions Dosage Effective Dates (start - stop) Status Comments Xakm-Eboq-Yspia 1%/0.5%/.01% OPHTHALMIC DROPS Apply one drop to affected eye(s) four times per day - Active amcinonide 0.1 % topical cream apply by topical route 2 times every day a thin layer to the affected area(s) as needed - Active Tikosyn 250 mcg capsule take [...] Diagnoses Date Provider Providers Copied on Encounter [facility], [address] [place], [id number], [place] tel:[phone] [facility] No Information 2 [facility]. [address] [place], [id number]. tel:[phone] Referring Provider: Timoteo Zhao, [address] [place], [address] . tel:[phone] [facility], [address] [place], [place], [id number], tel:[phone] [facility] No Information 2 [facility]. [address] [place], [id number]. tel:[phone] Referring Provider: Timoteo Zhao, [address] [place], [address] . tel:[phone] [facility], [address] [place], [id number], [place] tel:[phone] [facility] No Information 9 [facility]. [address] [place], [id number]. tel:[phone] Referring Provider: Timoteo Zhao, [address] [place], [address] . tel:[phone] [facility], [address] [place], [id number], [place] tel:[phone] [facility] No Information 9 [facility]. [address] [facility], [place], [place], [id number]. tel:[phone] Referring Provider: Timoteo Zhao, [address] [place] [address], [address] . tel:[phone] [facility], [address] [place], [place], [id number], tel:[phone] [facility] No Information 9 Dave Mahmood. [address] [place] [address], [id number], [place]. tel:[phone] Family History Family Member Type Diagnosis Age At Onset No Information Payers Payer name Insurance type Covered libertarian ID Authoriza tion(s) [facility] [id number] Social History Type Description Quantity Date Captured [...]
--- OUTSIDE RECORDS SUMMARY | 2023-08-16 11:23 | XMS_ITS | Encounter Summary ---
Author Name Unknown Organization [facility] Address [address] [place] [address] Care Team Providers Care Playground Supervisor Name Role Phone Unavailable Primary Care Provider Unavailabl e Reason for Referral * Outpatient (Routine) - Authorized Specialty Diagnoses / Procedures Referred By Contac t Referred To Contact Neurology Diagnoses Parkinsonism Unspecified (HCC) Cameron Poe M.D., M.P.H. [address] [place] [address] [facility] Referral ID Status Reason Start Date Expiration Date V isits Requested Visits Authorized [id number] Authorized 01/05/2023 01/05/2024 1 1 Encounter Details Date Type Department Care Team (Late st Contact Info) Description 01/05/2023 Orders Only Department of Neurology in [place] [address] [place] [phone] Cameron Poe M.D., M.P.H. [address] [place] [address] Parkinson Disease (HCC) (Primary Dx) Social History Tobacco Use [...] Office Visit Department of Sleep Medicine in [place], [place] [address] [place] [phone] Audra Aleman APRN, C.N.P., D.N.P., M.S.N. [address], [place] [phone] Scheduled Referrals Name Type Priority Associated Diagnoses Orde r Schedule Neurology - Movement disorder and parkinson consult (clinic) Outpatient Referral Routine Parkinson Disease (HCC) Expected: 07/07/2023 (Approximate), Expires: 04/07/2024 documented as of this encounter Visit Diagnoses Diagnosis Parkinsonism Unspecified (HCC)- Primary documented in this encounter
== END 2023-08-13 09:15 | disposition home or self-care (01) ==
LOC: NFLDREF 08-16 11:07
PROVIDERS: PCP Family Medicine; Referring Provider Family Medicine; Visit Provider Internal Medicine
DX: I48.91 Unspecified atrial fibrillation (principal); I48.92 Unspecified atrial flutter
CPT/HCPCS: 80048

== ENCOUNTER 2023-09-13 08:34 | Outpatient (CLI) | payer BC, SELFPAY | END 2023-09-13 08:35 | disposition home or self-care (01) | LOC: NFLDREF 09-24 08:45 | PROVIDERS: PCP Family Medicine; Referring Provider Family Medicine; Visit Provider Family Medicine | DX: C61 Malignant neoplasm of prostate (principal); Z13.220 Encounter for screening for lipoid disorders; Z13.228 Encounter for screening for other metabolic disorders | CPT/HCPCS: 80053; 80061; G0103 ==

== ENCOUNTER 2023-11-25 12:00 | Outpatient (REF) | payer BC, SELFPAY ==
--- OUTSIDE RECORDS SUMMARY | 2023-11-25 12:04 | XMS_ITS ---
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 Past Plans No past plan information found. Radiation Treatments * No radiation treatments are documented for this patient in [facility]. Treatments may have been administered in [...]
--- OUTSIDE RECORDS SUMMARY | 2023-11-25 12:04 | XMS_ITS | Encounter Summary ---
Author Name Unknown Organization [employer] Address [address] [place] [address] Care Team Providers Care Explosion Welder Name Role Phone Jamal CARLISLE DO, Robert William Primary Care Provide r Unavailable Desiree Patrick MD Unavailable Farrah Nicole APRN,SELF SEALING FUEL TANK BUILDER Unavailable Bry Echevarria MD Unavailable [phone] Jamal CARLISLE DO, Robert William Unavailable Unav Stephani Diaz MD Primary Care Provider [phone] Shruti Vergara RN Unavailable Unavailable Bianka Loera CNP Primary Care Provider [phone] Desiree Patrick MD Primary Care P rovider Encounter Details Date Type Department Care Team (Late st Contact Info) Description 09/08/2018 Historical Conversion [facility] Family Medicine [address] [place] [address] Casey Berry II, DO Social History Tobacco Use Types Packs/Day Years Used Date Smoking Tobacco: Former Cigarettes 1 18 1 961 - 1978 Smokeless Tobacco: Never Alcohol Use Standard [...] Comments Blood Pressure 122/74 09/08/2018 12:00 AM PBX SUPERVISOR Pulse - - Temperature - - Respiratory Rate - - Oxygen Saturation - - Inhaled Oxygen Concentration - - Weight 92.8 kg (204 lb 9.7 oz) 09/08/2018 12:00 AM PBX SUPERVISOR Height 184 cm (6' 0.44) 09/08/2018 12:00 AM PBX SUPERVISOR Body Mass Index 27.41 09/08/2018 12:00 AM PBX SUPERVISOR documented in this encounter Functional Status [...] on filedocumented in this encounter Care Teams Explosion Welder Relationship Specialty Start Date End Date Casey Berry II, DO PCP - General 11/22/06 08/17/19 Stephani Aleman MD PCP - General Family Medicine 08/18/19 09/16/20 Bianka Loera CNP [address] [facility] [address] [place] [address] PCP - General Nurse Practitioner Family 09/17/2001/10 [place] [address] [place] [address] PCP - General Electrophysiology 02/23/22 03/09/22 Desiree Patrick MD [address] [facility] [place] [address] 08/09/17 Farrah Nicole APRN,SELF SEALING FUEL TANK BUILDER [address] [place] [address] 08/09/17 Bry Echevarria MD [address] [place] [address] [place] [address] 08/09/17 Casey Berry II, DO 08/09/17 Shruti Vergara RN RN Registered Nurse 08/27/20 documented as of this encounter Additional Source Comments PLEASE NOTE: Replies to this message will not be received.[facility] and [facility]
--- OUTSIDE RECORDS SUMMARY | 2023-11-25 12:04 | XMS_ITS | Encounter Summary ---
Author Name Unknown Organization [employer] Address [address] [place] [address] Care Team Providers Care Retail Commission Sales Associate Name Role Phone Jamal CARLISLE DO, Robert William Primary Care Provide r Unavailable Desiree Patrick MD Unavailable Farrah Nicole APRN,FOUNTAIN PEN TURNER Unavailable Bry Echevarria MD Unavailable Jamal CARLISLE DO, Robert William Unavailable Unav Stephani Diaz MD Primary Care Provider Shruti Vergara RN Unavailable Unavailable Bianka Loera CNP Primary Care Provider Desiree Patrick MD Primary Care P rovider Encounter Details Date Type Department Care Team (Late st Contact Info) Description 09/08/2018 Historical Conversion [facility] Family Medicine [address] [place] [address] Casey Berry II, DO Social History Tobacco [...] DAILY CBC; Status:Resulted - Requires Verification; Done: [id number] 09:12AM Comprehensive Metabolic Panel; Status:Resulted - Requires Verification; Done: 00Qvh5936 09:12AM Lipid Panel; Status:Resulted - Requires Verification; Done: 89Oms7311 09:12AM Vitamin D Total [facility]; Status:Resulted - Requires Verification; Done: 08Sep2018 09:12AM Ataxia Drawing Fee; Status:Complete; Done: 08Sep2018 Balance Center Consult Consult Only Evaluation and Treatment Status: Hold For - Required information Requested for: [id number] Phone Number to Contact Patient: : See chart to Provider, Practice or Agency: : [facility] Folate; Status:Resulted - Requires Verification; Done: 08Sep2018 [...] 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 HEALTH CARE MAINTENANCE: Colonoscopy in 2009, due in 2019. Current Meds 1. Dofetilide 250 MCG Oral Capsule; TAKE 1 CAPSULE EVERY 12 HOURS; Last Rx:[id number] Ordered 2. Jantoven 5 MG Oral Tablet; TAKE 1 1/2 TABLET BY MOUTH ON WEDNESDAYS, AND 1 TABLET BY MOUTH ALL OTHER DAYS OF THE WEEK DIRECTED; Therapy: 13Apr2018 to (Evaluate:28Sep2018) Requested for: 26Hun0509; Last Rx:[id number] Ordered 3. Lisinopril 10 MG Oral Tablet; TAKE ONE TABLET DAILY; Therapy: 18Oct2017 to Recorded 4. Metoclopramide HCl - 5 MG Oral Tablet; TAKE 1 TABLET BY MOUTH THREE TIMES DAILY WITH MEALS NEEDED; Therapy: 10Sep2014 to (Evaluate:94Ggr4127) Requested for: 10Dvr6491; Last Rx:[id number] Ordered 5. Oxybutynin Chloride ER 10 MG Oral Tablet Extended Release 24 Hour; TAKE 1 TABLET DAILY; Therapy: 98Ibt3569 to (Evaluate:92Fag4608) Requested for: 15Jfr4177; Last Rx:[id number] Ordered 6. Polyethylene Glycol 3350 Oral Powder; take 17 grams in 8 ounces of fluid once daily as needed for constipation; Therapy: 99Lyx9920 to (Evaluate:27May2018); Last Rx:68Rit4136 Ordered 7. Sildenafil Citrate 100 MG Oral Tablet; Take 1/2-1 tab 1 hour before sexual activity; Therapy: 09Tgb0445 to (Last Rx:47Wat2861) Requested for: 60Rjn1097 Ordered 8. Triamcinolone Acetonide 0.1 % External Lotion; APPLY 2-3 TIMES DAILY TO AFFECTED AREA(S); Therapy: 03Eme1842 to (Last Rx:36Rxi5472) Requested for: 93Wep6598 Ordered Allergies 1. Penicillins 2. Sulfa Drugs PENICILLIN AND SULFA. Immunizations Tetanus in 2013. Pneumovax in 2009. Prevnar in 2016. Shingles shot 2010. We did discuss about Shingrix. Vitals Recorded: [...] Prostate firm, no masses, nontender. Results/Data CBC [id number] 09:12AM Casey Berry FASTING Test Name Result [...] % 0.9 % 0-2 Comprehensive Metabolic Panel 24Jxl4777 09:12AM Casey Berry FASTING Test Name Result [...] Dioxide 28 mmol/L 22-30 Lipid Panel 08Sep2018 09:12AM Casey Berry FASTING Test Name Result Flag Reference Cholesterol 92 mg/dl < 200 Triglycerides 59 mg/dl < 150 HDL 43 mg/dl 40 or > LDL - Calculated 37 mg/dl < 130 *L/H Ratio 0.9 L 1.0-4.7 Vitamin D Total [facility] 01Mta4016 09:12AM Casey Berry Test Name Result Flag Reference Vitamin D Total - [facility] 20.9 ng/ml L 30-100 Deficiency <10ng/mL Insufficiency 10-29 ng/mL Sufficiency 30-100 ng/mL Possible Toxicity >100 ng/mL TSH 91Qjz9775 09:12AM Casey Berry FASTING Test Name Result Flag Reference TSH 1.670 uIU/ml 0.30-4.70 Vitamin B12 08Sep2018 09:12AM Casey Berry Test Name Result Flag Reference Vitamin B12 382 pg/ml 200-1000 Folate 49Ave1088 09:12AM Jamal Casey Test Name Result Flag Reference Folate >20.0 ng/ml H 6.6-19.9 Signatures Casey Berry II, D.O./jaj-28 REVISED NOTE 09/12/2018/naomie Electronically signed by : Casey Berry DO; Sep 09 2018 11:14AM TRANSPORTER RADIOLOGY Electronically signed by : Casey Berry DO; Sep 12 2018 9:09AM TRANSPORTER RADIOLOGY documented in this encounter Plan of Treatment Not on file documented as of this encounter Visit Diagnoses Not on filedocumented in this encounter Care Teams Retail Commission Sales Associate Relationship Specialty Start Date End Date Casey Berry II, DO PCP - General 11/22/06 08/17/19 Stephani Aleman MD PCP - General Family Medicine 08/18/19 09/16/20 Bianka Loera DISPLAY DECORATOR [address] [place] [phone] PCP - General Nurse Practitioner Family 09/17/20 712/31 Desiree Patrick MD [address] [place] [address] PCP - General Electrophysiology 02/23/22 03/09/22 Desiree Patrick MD [address] [place] [address] 08/09/17 Farrah Nicole APRN,FOUNTAIN PEN TURNER [address] [place] [address] 08/09/17 Bry Echevarria MD [address] [phone] 08/09/17 Casey Berry II, DO 08/09/17 Shruti Vergara RN RN Registered Nurse 08/27/20 documented as of this encounter Additional Source Comments PLEASE NOTE: Replies to this message will not be received.[facility] and [facility]
--- OUTSIDE RECORDS SUMMARY | 2023-11-25 12:04 | XMS_ITS | Encounter Summary ---
Author Name Unknown Organization [employer] Address [address] [place] [address] Care Team Providers Care Director Nicu Name Role Phone Jamal CARLISLE DO, Robert William Primary Care Provide r Unavailable Desiree Patrick MD Unavailable Farrah Nicole APRN,RADIO PRODUCER Unavailable Bry Echevarria MD Unavailable [phone] Jamal CARLISEL DO, Robert William Unavailable Unav Stephani Diaz MD Primary Care Provider Shruti Vergara RN Unavailable Unavailable Bianka Loera CNP Primary Care Provider Desiree Patrick MD Primary Care P rovider Encounter Details Date Type Department Care Team (Late st Contact Info) Description 09/19/2018 Historical Conversion [facility] Family Medicine [address] [place] [id number] Trish Barone, PT Social History Tobacco Use [...] by:Trish Barone PT Oct 12 2018 5:27PM PHYSICIAN/ALLERGY/IMMUNOLOGY AMENDMENTS: 1. Patient received 4 feet of green theraband on this date of service. Electronically signed by:Trish Barone PT Oct 12 2018 5:28PM PHYSICIAN/ALLERGY/IMMUNOLOGY * Trish Barone, PT - 10/03/2018 12:00 [...] per day with the dogs. He attends [employer] with his 2 times a week. OBJECTIVE: [...] by:Trish Barone PT Oct 03 2018 1:23PM PHYSICIAN/ALLERGY/IMMUNOLOGY * Trish Barone, PT - 09/19/2018 12:00 AM CDT CRISTIAN BLEDSOE : 1945 HX: [id number] DOS: 09/19/2018 REFERRING PROVIDER: Casey Berry D.O. 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 He is currently [...] PATIENT RECEIVED: Patient received 30 minutes of viep-gl-[id number] evaluation with three or more comorbidities and three or more elements addressed. Clinical presentation is evolving and clinical complexity is moderate. Patient also received canalith repositioning maneuvers on this date. Trish Barone, PT, [place] #[id number] Electronically signed by:Trish Barone PT Sep 26 2018 8:37AM PHYSICIAN/ALLERGY/IMMUNOLOGY documented in this encounter Plan of Treatment Not on file documented as of this encounter Visit Diagnoses Not on filedocumented in this encounter Care Teams Director Nicu Relationship Specialty Start Date End Date Casey Berry II, DO PCP - General 11/22/06 08/17/19 Stephani Aleman MD PCP - General Family Medicine 08/18/19 09/16/20 Bianka Loera CNP [address] [place] [id number] PCP - General Nurse Practitioner Family 09/17/2001/10 Desiree Patrick MD [address] [place] [address] PCP - General Electrophysiology 02/23/22 03/09/22 Desiree Patrick MD [address] [place] [address] 08/09/17 Farrah Nicole APRN,RADIO PRODUCER [address] [place] [address] 08/09/17 Bry Echevarria MD [address] [place] [address] [place] [phone] 08/09/17 Casey Berry II, DO 08/09/17 Shruti Vergara RN RN Registered Nurse 08/27/20 documented as of this encounter Additional Source Comments PLEASE NOTE: Replies to this message will not be received.[facility]
--- OUTSIDE RECORDS SUMMARY | 2023-11-25 12:04 | XMS_ITS | Clinical Summary ---
Author Name Unknown Organization [employer] [facility] Address [place], [place] [address] Care Team Providers Care Porcelain Finisher Name Role Phone Marli Sauceda MD Primary Care Provider + Allergies Active Allergy Reactions Criticality Noted Date Comments Penicillins Hives,Rash Medium 02/03/2022 Sulfa (Sulfonamide Antibiotics) Rash Medium /12/2015 Medications Medication Sig Dispensed Refills Start Date End Date Status carbidopa-levodopa, 25-100 mg, (SINEMET 25-100) 25-100 mg tablet Take 1 Tablet by mouth three times daily. 04/14/2022 Active cholecalciferol (VITAMIN D3) 1,000 unit tablet Take 25 mcg by mouth once daily. Active donepeziL (ARICEPT) 10 mg tablet Take 10 mg by mouth at bedtime. 08/26/2021 Active ipratropium (ATROVENT NASAL) 21 mcg (0.03 %) nasal spray Inhale 2 Sprays into affected nostril(s) three times daily. As needed 08/26/2021 Active lisinopriL (PRINIVIL; ZESTRIL) 10 mg tablet Take 10 mg by mouth once daily. 08/26/2021 Active memantine (NAMENDA) 10 mg tablet Take 10 mg by mouth two times daily. 08/26/2021 Active warfarin (Jantoven) 5 mg tablet Take 5 mg by mouth once daily. 11/04/2021 Active dofetilide (TIKOSYN) 250 mcg capsuleIndications:P aroxysmal atrial fibrillation (HC) Take 1 Capsule (250 mcg) by mouth every 12 hours. 180 Capsule 3 12/18/2022 Active Active Problems Problem Noted Date Diagnosed Date Ascending aorta dilatation 04/24/2022 PAF (paroxysmal atrial fibrillation) 04/24/2022 Parkinson disease 04/24/2022 Encounters Date Type Department Care Team Description 11/16/2023 Telephone [facility] [address] [place] [address] Kiya Gomes RN Medication Management (Tikosyn/) 09/09/2023 11:00 AM EXTERIOR WORK HELPER Office Visit [facility] [address] [place] [address] Juan Manuel Pelayo, AuD Hearing Aid 09/09/2023 10:00 AM EXTERIOR WORK HELPER Office Visit [facility] [address] [place] [address] Juan Manuel Pelayo, AuD Hearing Problem 09/09/2023 Travel from Last 3 Months Social History Tobacco Use Types Packs/Day Years Used Date Smoking Tobacco: Never Assessed Social Connections Answer Date Recorded Frequency of Communication with Friends and Fami ly Not on file 04/24/2022 Sex and Gender Information Value Date Recorded Sex Assigned at Not on file Gender Identity Not on file Sexual Orientation Not on file Plan of Treatment Upcoming Encounters Date Type Department Care Team (Late st Contact Info) Description 11/25/2023 12:30 PM CDT Office Visit [facility] [address] [place] [address] Juan Manuel Pelayo, AuD [address] [place] [address] Health Maintenance Due Date Last Done Comments Tdap 11/23/1955 Depression screening for age 12+ 1956 BMI (ht and wt on same day) for age 18+ 1962 Hepatitis C screening for ag e 18-79 1962 Tetanus booster 1964 Zoster (shingles) series for age 50+ (1 of 2) 1994 Pneumococcal series for age 65+ (1 of 1 - PCV) 2009 COVID-19 vaccine series (2022-24 season) 2023 05/07/2022, 11/04/2021, 04/29/2021, Additional history exists Influenza for age 65+ 03/12/2024 Care Teams Porcelain Finisher Relationship Specialty Start Date End Date Marli Sauceda MD [address] [place] [address] PCP - General Family Practice 03/13/22
--- OUTSIDE RECORDS SUMMARY | 2023-11-25 12:04 | XMS_ITS | Clinical Summary ---
Author Name Unknown Organization [employer] [facility] Address [address] [place] [address] Care Team Providers Care Plc Engineer Name Role Phone Desiree Patrick MD Unavailable Farrah Nicole APRN,ALEX Unavailable [phone] Bry Echevarria MD Unavailable [phone] Jamal CARLISLE DO, Robert William Unavailable Unav [...] that the modem is working. 1 Each 02/22/2019 Active cholecalciferol 1,000 unit oral tablet Take 1,000 Units by mouth once daily. Active polyethylene glycol 3350 (AKA: GLYCOLAX; MIRALAX) 17 gram oral Powder in Packet Take 17 g by mouth once daily. Active memantine (NAMENDA) 10 mg oral TabletIndications:Va [...] mouth once daily as needed for congestion. Active ipratropium (ATROVENT) 21 mcg (0.03 %) nasal [place], Non-AerosolIndicatio ns:PND (post-nasal drip) 2 Sprays by each nostril route three times daily as needed (runny nose). 30 mL 08/26/2021 Active Additional Information Patient not taking.Reason: Not Available, Reported on 11/26/2021 PAP MACHINEIndications:C entral sleep apnea BiPAP autoSV Advanced or VPAP adapt SV auto Max EPAP: 15 Min EPAP: 7 Max PS: 15 Min PS: 0 1 Each 11/26/2021 Active dofetilide (TIKOSYN) 250 mcg oral CapsuleIndications:P AF (paroxysmal atrial fibrillation) (HCC) Take 1 Capsule (250 mcg) by mouth in the morning and 1 Capsule (250 mcg) in the evening. 180 Capsule 03/12/2022 Active warfarin (COUMADIN) 5 mg oral TabletIndications:Pa roxysmal atrial fibrillation (HCC),intermediate manager (current) use of anticoagulants TAKE 1 TABLET [...] 11/09/2018 Muscle tightness 11/09/2018 Bilateral foot-drop 11/09/2018 snf (current) use of anticoagulants 2018 Encounter for monitoring dofetilide therapy 06/11 Atrial fibrillation (HCC) 06/21/2017 Essential hypertension 10/21/2016 Thoracic ascending aortic aneurysm 06/11/2016 Overview: 4.2 x [address] [facility] [address] Atrial flutter 11/15/2015 Esophageal dysmotility Overview: [...] aneurysm 10/08/2016 Atrial fibrillation with RVR 10/21/2016 Immunizations Name Administration Dates Next Due Influenza [...] Smoking Tobacco: Former Cigarettes 1 18 1 1978 Smokeless Tobacco: Never Alcohol Use Standard [...] week 04/04/2021 How often do you attend [facility] or christianity services? More than 4 times per year 04/04/2021 Do you belong to any clubs o r organizations such as sikh groups, unions, fraternal or athletic groups, or [...] and heating? Not hard at all 04/04/2021 [facility] Occupat ional Health - Occupational Stress [...] place to sleep or slept in a intermediate (including now)? No 04/04/2021 Depression (PHQ-9) Answer Date Recorded Last PHQ-9 Score Not on file 08/27/2022 Thoughts of self harm Not at all 08/27/2022 Education Answer Date Recorded What is the highest level of school you have completed or the highest degree you have received? Master's degree (e.g., MA, MS, Mirlande, MEd, NUTRITION TECHNICIAN, ROHIT) 08/19/2020 Sex and Gender Information Value [...] Health Maintenance Due Date Last Done Comments Respiratory Syncytial Virus (RSV) Vaccine (1 - 1-dose 60+ series) 2004 Varicella Zoster Sequential (2 of 3) 03/25/2010 01/28/2010 PHQ-9 Depression Screening 08/26/2022 08/26/2021 COVID-19 Vaccine ( season) 2023 11/04/2021, 04/29/2021, 09/05/2020, Additional history exists DTaP/Tdap/Td Vaccines (2 - Td or Tdap) 08/21/2023 08/21/2013, 12/26/2002 Influenza Vaccine (Season Ended) 2024 04/13/2022, 03/25/2021, 03/12/2020, Additional history exists Lipids Standard 08/18/2024 08/18/2019, 08/13, 09/07/2017, Additional [...] on patient's age to complete this topic Procedures Procedure Name Priority Date/Time Associated Diagnosis Comments HEPATITIS C AB Routine 08/26/2021 10:09 AM LIME KILN WORKER HELPER Need for hepatitis C screening test COLONOSCOPY Routine 02/27/2020 8:05 AM CDT LIPID PANEL Routine 08/18/2019 9:23 AM LIME KILN WORKER HELPER Screening for lipid disorders from Last 3 Months or Most Recently Relevant to Health Maintenance Results * (ABNORMAL) HEPATITIS C AB (08/26/2021 10:09 AM LIME KILN WORKER HELPER) HCV Ab Reactive( A) Nonreactive 08/26/2021 7:41 PM LIME KILN WORKER HELPER [facility] Comment: This is a reportable disease sent to the [place] [facility]. 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 State of associated disease not determined. Blood VENOUS BLOOD / Unknown Venipuncture / Unknown 08/26/2021 10:09 AM LIME KILN WORKER HELPER 08/26/2021 10:09 AM LIME KILN WORKER HELPER Bianka Norbert Edlund SHRIMP TRAWLER LAB SEROLOGY ORDERAB LES [facility] [address] [place] [address] * COLONOSCOPY (02/27/2020 8:05 AM CDT) 02/27/2020 8:05 AM CDT Narrative [facility] - 02/27/2020 9:20 AM CDT [facility] Patient Name: Rohan Carroll Procedure Date: 02/27/2020 8:05 AM Date of : 1945 Admit Type: Outpatient Age: 74 Room: [facility] Gender: Male Note Status: Finalized Attending MD: Dov Cole MD Procedure: ?Colonoscopy Indications: ?Screening for colorectal malignant neoplasm, Last ?colonoscopy: January 2010 Providers: ?Dov Cole MD Referring Provider: Stephani Aleman MD (Referring MD) Medicines: ?Midazolam 4 mg IV, Fentanyl 50 micrograms IV Complications: ?No immediate complications. Procedure: ?After I obtained informed consent, the scope was passed ?under direct vision. Throughout the procedure, the ?patient's blood pressure, pulse, and oxygen saturations ?were monitored continuously.The patient tolerated the ?procedure well. The quality of the bowel preparation was ?excellent. The [id number] was introduced through the anus ?and advanced to the cecum, identified by appendiceal ?orifice and ileocecal valve. Findings: ? Internal hemorrhoids were found during retroflexion. The hemorrhoids ? were Grade I (internal hemorrhoids that do not prolapse). ? A few diverticula were found in the sigmoid colon and descending colon. ? No neoplastic or malignant processes were noted during this study. ? No other significant abnormalities were identified in a careful ? examination of the remainder of the colon. Moderate Sedation: ? Moderate (conscious) sedation was administered by the endoscopy nurse ? and supervised by the endoscopist. The following parameters were ? monitored: oxygen saturation, heart rate, blood pressure, respiratory ? rate, EKG, adequacy of pulmonary ventilation, and response to care. ? Total physician intraservice time was 35 minutes. Impression: ? - Internal hemorrhoids. ?- Diverticulosis in the sigmoid colon and in the ?descending colon. ?- The exam was otherwise normal to the cecum. Recommendation: ? - Discharge patient to home. ?- Repeat colonoscopy for screening purposes in 10 years. ?This presumes the absence of symptoms and having no close ?family members with colon cancer or polyps and adequate ?overall general health. ?- This patient may now resume his/her routine activities, ?diet, and medications. ?- Patient has a contact number available for emergencies. ?The signs and symptoms of potential delayed complications ?were discussed with the patient. Return to normal ?activities tomorrow. Written discharge instructions were ?provided to the patient. Dov Cole MD 02/27/2020 9:19:53 AM This report has been signed electronically. All medications administered and tests ordered during the procedure were at the direction of the provider performing the procedure. Unless otherwise noted, estimated blood loss was minimal, no specimens were obtained, and all proceduralists have been documented. Number of Addenda: 0 Note Initiated On: 02/27/2020 8:05 AM Stephani Aleman MD GI PROCEDURES [employer] END[facility] * (ABNORMAL) LIPID PANEL (08/18/2019 9:23 AM LIME KILN WORKER HELPER) Cholesterol 96 0 - 200 mg/dL 08/18/2019 7:32 PM LIME KILN WORKER HELPER [facility] Triglycerides 65 30 - 150 mg/dL 08/18/2019 7:32 PM LIME KILN WORKER HELPER [facility] Cholesterol, LDL (Calculated) 45 0 - 159 mg/dL 08/18/2019 7:32 PM [facility] [employer] [facility] Cholesterol, HDL 38(L) >40 mg/dL 08/18/19 20 7:32 PM LIME KILN WORKER HELPER [facility] [employer] [facility] Cholesterol, vLDL 13 mg/dL 020 7:32 PM [facility] [employer] [facility] Blood VENOUS BLOOD SPECIMEN / Unknown Venipuncture / Unknown 08/18/2019 9:23 AM LIME KILN WORKER HELPER 08/18/2019 9:23 AM LIME KILN WORKER HELPER Stephani Aleman MD LAB CHEMISTRY ALEN MORENO [facility] [address] [place] [address] from Last 3 Months or Most Recently Relevant to Health Maintenance Advance Directives Documents on File Type Date Recorded Patient Radio Division Officer Expl anation Advanced Directives 08/23/2014 3:05 PM [facility] * Full Code (Latest Code Status on File) Date Activated Date Inactivated Comments 06/21/2017 3:50 PM 06/24/2017 4:37 PM * Full Code Date Activated Date Inactivated Comments 10/19/2016 4:45 PM 10/20/2016 8:57 PM * Full Code Date Activated Date Inactivated Comments 11/15/2015 11:16 PM 11/16/2015 11:46 AM Care Teams Plc Engineer Relationship Specialty Start Date End Date Desiree Patrick MD [address] [place] [address] 08/09/17 Farrah Nicole APRN,[facility] [address] [place] [address] 08/09/17 Bry Echevarria MD [address] [place] [address] [place] [address] 08/09/17 Casey Berry II, DO 08/09/17 Shruti Vergara RN RN Registered Nurse 08/27/20 Additional Source Comments PLEASE NOTE: Replies to this message will not be received.[facility] and [facility]
--- OUTSIDE RECORDS SUMMARY | 2023-11-25 12:04 | XMS_ITS | Encounter Summary ---
Author Name Unknown Organization [facility] [employer] [facility] Address [address] [place] [address] Care Team Providers Care Relay Mechanic Name Role Phone Jamal CARLISLE DO, Robert William Primary Care Provide r Unavailable Desiree Patrick MD Unavailable Farrah Nicole APRN,TABLE TENDER SLUDGE Unavailable Bry Echevarria MD Unavailable Jamal CARLISLE DO, Robert William Unavailable Unav Stephani Diaz MD Primary Care Provider [phone] Shruti Vergara RN Unavailable Unavailable Bianka Loera CNP Primary Care Provider Desiree Patrick MD Primary Care P rovider Encounter Details Date Type Department Care Team (Late st Contact Info) Description 02/06/2019 HIM Director Blood Bank [facility] [address] [address] Rakesh Williamson Chi, MD Social History Tobacco Use Types [...] ADULT WITH OR WITHOUT CONTRAST PERFORMED BY: [place] [place] SITE: [place] [place] INTERPRETED BY: [facility] [place] TRANSTHORACIC ECHOCARDIOGRAM REPORT REFERRING DIAGNOSIS: Sleep [...] function. Note: This study was performed by [facility]. Only the interpretation was performed at the [facility] [place]. Electronically signed Rakesh Williamson MD Service Station Cashier , 06:42 A A felipa/Doc#: [id number] cc: Antoine Fitzpatrick MD Adult Normal Value [...] Blood pressure: 139/86 mmHg Previous study: 01/06/2017 Kaiako Kura [place]: KRISTA documented in this encounter Plan of [...] - 02/06/2019 12:00 AM CDT PERFORMED BY: [place] [place] SITE: [place] [place] INTERPRETED BY: [facility] [place] TRANSTHORACIC ECHOCARDIOGRAM REPORT REFERRING DIAGNOSIS: Sleep [...] function. Note: This study was performed by [facility]io [place]. Only theinterpretation was performed at the [facility]. Electronically signed Rakesh Williamson MD Service Station Cashier , 06:42 A A felipa/Doc#: [id number] cc: Antoine Fitzpatrick MD Adult Normal Value [...] Blood pressure: 139/86 mmHg Previous study: 01/06/2017 Kaiako Kura [place]: KRISTA Antoine Fitzpatrick MD,PHD CAR ULTRASOU [place] documented in this encounter Visit Diagnoses Not on filedocumented in this encounter Care Teams Relay Mechanic Relationship Specialty Start Date End Date Casey Berry II, DO PCP - General 11/22/06 08/17/19 Stephani Aleman MD PCP - General Family Medicine 08/18/19 09/16/20 Bianka Loera, PACKAGING SALES CONSULTANT [address] [place] [phone] PCP - General Nurse Practitioner Family 09/17/20 712/31 Desiree Patrick MD [address] [place] [address] PCP - General Electrophysiology 02/23/22 03/09/22 Desiree Patrick MD [address] [place] [address] 08/09/17 Farrah Nicole APRN,TABLE TENDER SLUDGE [address] [place] [address] 08/09/17 Bry Echevarria MD [facility] [place] [phone] 08/09/17 Casey Berry II, DO 08/09/17 Shruti Vergara, RN RN Registered Nurse 08/27/20 documented as of this encounter Additional Source Comments PLEASE NOTE: Replies to this message will not be received.[facility] and [facility]
--- OUTSIDE RECORDS SUMMARY | 2023-11-25 12:04 | XMS_ITS | Encounter Summary ---
Author Name Unknown Organization [facility] Address [address] [place] [address] Care Team Providers Care Family Service Counselor Name Role Phone Desiree Patrick MD Unavailable Farrah Nicole APRN, CNS Unavailable Bry Echevarria MD Unavailable Jamal CARLISLE DO, Robert William Unavailable Unaruby ailShruti Marinelli RN Unavailable Unavailable Desiree Patrick MD Primary Care P rovider Encounter Details Date Type Department Care Team (Late st Contact Info) Description 02/25/[address] [address] Social History Tobacco Use Types [...] How often do you attend chur or yazidism services? More than 4 times per year 04/04/2021 Do you belong to any clubs o r organizations such as zoroastrianism groups, unions, fraternal or athletic groups, or [...] and heating? Not hard at all 04/04/2021 [facility] [place] of Occupat ional Health - Occupational Stress [...] place to sleep or slept in a assisted (including now)? No 04/04/2021 Depression (PHQ-9) Answer Date Recorded Last PHQ-9 Score 3 08/22/2021 Thoughts of self harm Not at all 08/22/2021 Education Answer Date Recorded What is the highest level of school you have completed or the highest degree you have received? Master's degree (e.g., MA, MS, Mirlande, MEd, TRANSLATOR DEAF, ROHIT) 08/19/2020 Sex and Gender Information Value [...] on filedocumented in this encounter Care Teams Family Service Counselor Relationship Specialty Start Date End Date Desiree Patrick MD [address] [place] [address] PCP - General Electrophysiology 02/23/22 03/09/22 Desiree Patrick MD [address] [place] [address] 08/09/17 Farrah Nicole APRN,RECORDER GRAVITY PROSPECTING [address] [place] [address] 08/09/17 Bry Echevarria MD [facility] [place] [address] 08/09/17 Casey Berry II, DO 08/09/17 Shruti Vergara RN RN Registered Nurse 08/27/20 documented as of this encounter Additional Source Comments PLEASE NOTE: Replies to this message will not be received.[facility] and [facility]
--- OUTSIDE RECORDS SUMMARY | 2023-11-25 12:04 | XMS_ITS | Referral Summary ---
Author Name Unknown Organization [employer] Address [address] [place] [address] Care Team Providers Care Sap Solutions Architect Name Role Phone Desiree Patrick MD Unavailable Farrah Nicole APRN,ALEX Unavailable Bry Echevarria MD Unavailable [phone] Jamal CARLISLE DO, Robert William Unavailable Unav [...] ipratropium (ATROVENT) 21 mcg (0.03 %) nasal [place], Non-AerosolIndicatio ns:PND (post-nasal drip) 2 Sprays by [...] mg oral TabletIndications:Pa roxysmal atrial fibrillation (HCC),intermediate frame tender (current) use of anticoagulants TAKE 1 TABLET [...] 11/09/2018 Muscle tightness 11/09/2018 Bilateral foot-drop 11/09/2018 [facility] (current) use of anticoagulants 2018 Encounter for monitoring dofetilide therapy 06/11 Atrial fibrillation (HCC) 06/21/2017 Essential hypertension 10/21/2016 Thoracic ascending aortic aneurysm 06/11/2016 Overview: 4.2 x [address] [facility] [address] Atrial flutter 11/15/2015 Esophageal dysmotility [...] (Adacel)(Boostrix) 08/21/2013 Varicella Vaccine, SQ (Zostavax) 01/28/2010 Social History Tobacco Use Types Packs/Day Years [...] How often do you attend chur or confucianism services? More than 4 times per year 04/04/2021 Do you belong to any clubs o r organizations such as anabaptist groups, unions, fraternal or athletic groups, or [...] and heating? Not hard at all 04/04/2021 [facility] - Occupational [...] place to sleep or slept in a residential (including now)? No 04/04/2021 Depression (PHQ-9) Answer Date Recorded Last PHQ-9 Score Not on file 08/27/2022 Thoughts of self harm Not at all 08/27/2022 Education Answer Date Recorded What is the highest level of school you have completed or the highest degree you have received? Master's degree (e.g., MA, MS, [place], MEd, CARDIAC CATH TECHNICIAN, ROHIT) 08/19/2020 Sex and Gender Information [...] Mass Index 25.99 03/03/2022 8:21 AM CDT Functional Status Functional Status Response Date of [...] physical, mental, or emotional condition? No 08/26/2021 Plan of Treatment Not on file Procedures Procedure Name Priority Date/Time Associated Diagnosis Comments HEPATITIS C AB Routine 08/26/2021 10:09 AM MANAGER NEW PRODUCT Need for hepatitis C screening test COLONOSCOPY Routine 02/27/2020 8:05 AM CDT LIPID PANEL Routine 08/18/2019 9:23 AM MANAGER NEW PRODUCT Screening for lipid disorders from Last 3 Months or Most Recently Relevant to Health Maintenance Results * (ABNORMAL) HEPATITIS C AB (08/26/2021 10:09 AM MANAGER NEW PRODUCT) HCV Ab Reactive( A) Nonreactive 08/26/2021 7:41 PM MANAGER NEW PRODUCT [facility] Comment: This is a reportable disease sent to the [facility]. 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 State of associated disease not determined. Blood VENOUS BLOOD / Unknown Venipuncture / Unknown 08/26/2021 10:09 AM MANAGER NEW PRODUCT 08/26/2021 10:09 AM MANAGER NEW PRODUCT Bianka Loera [facility] SEROLOGY ORDERAB LES Performing Organization Address [facility] Co de Phone Number [facility] [address] [place] [address] * COLONOSCOPY (02/27/2020 8:05 AM CDT) 02/27/2020 8:05 AM CDT Narrative [facility] - 02/27/2020 9:[address] [facility] Patient Name: Rohan Carroll Procedure Date: 02/27/2020 8:05 AM Date of : 1945 Admit Type: Outpatient Age: 74 Room: [facility] Gender: Male Note Status: Finalized [...] of the bowel preparation was ?excellent. The [id number] was introduced through the anus ?and advanced [...] 8:05 AM Stephani Aleman MD GI PROCEDURES [facility] * (ABNORMAL) LIPID PANEL (08/18/2019 9:23 AM MANAGER NEW PRODUCT) Cholesterol 96 0 - 200 mg/dL 08/18/2019 7:32 PM MANAGER NEW PRODUCT [facility] Triglycerides 65 30 - 150 mg/dL 08/18/2019 7:32 PM MANAGER NEW PRODUCT [facility] Cholesterol, LDL (Calculated) 45 0 - 159 mg/dL 08/18/2019 7:32 PM MANAGER NEW PRODUCT [facility] Cholesterol, HDL 38(L) >40 mg/dL 08/18/19 20 7:32 PM MANAGER NEW PRODUCT [facility] Cholesterol, vLDL 13 mg/dL 020 7:32 PM [facility] Blood VENOUS BLOOD SPECIMEN / Unknown Venipuncture / Unknown 08/18/2019 9:23 AM MANAGER NEW PRODUCT 08/18/2019 9:23 AM MANAGER NEW PRODUCT Stephani Aleman MD LAB CHEMISTRY ORDERA JOSH [facility] [address] [place], [place] [id number] from Last 3 Months or Most Recently Relevant to Health Maintenance Advance Directives Documents on File Type Date Recorded Patient Management Manager Expl anation Advanced Directives 08/23/2014 3:05 PM [facility] * Full Code (Latest Code Status on File) Date Activated Date Inactivated Comments 06/21/2017 3:50 PM 06/24/2017 4:37 PM * Full Code Date Activated Date Inactivated Comments 10/19/2016 4:45 PM 10/20/2016 8:57 PM * Full Code Date Activated Date Inactivated Comments 11/15/2015 11:16 PM 11/16/2015 11:46 AM Care Teams Sap Solutions Architect Relationship Specialty Start Date End Date Desiree Patrick MD [address] [place] [phone] 08/09/17 Farrah Nicole APRN,ADOPTION COORDINATOR [address] [place] [phone] 08/09/17 Bry Echevarria MD [address] [place] [phone] 08/09/17 Casey Berry II, DO 08/09/17 Shruti Vergara, RN RN Registered Nurse 08/27/20 Additional Source Comments PLEASE NOTE: Replies to this message will not be received.[facility]
--- OUTSIDE RECORDS SUMMARY | 2023-11-25 12:05 | XMS_ITS | Encounter Summary ---
Author Name Unknown Organization [employer] Address [address] [place] [address] Care Team Providers Care Cone Picker Name Role Phone Jamal CARLISLE DO, Robert William Primary Care Provide r Unavailable Desiree Patrick MD Unavailable Farrah Nicole APRN,CELL CHANGER Unavailable Bry Echevarria MD Unavailable [phone] Jamal CARLISLE DO, Robert William Unavailable Unav Stephani Diaz MD Primary Care Provider Shruti Vergara RN Unavailable Unavailable Bianka Loera CNP Primary Care Provider [phone] Desiree Patrick MD Primary Care P rovider Encounter Details Date Type Department Care Team (Late st Contact Info) Description 06/23/2018 Historical Conversion [facility] Family Medicine [address] [place] [phone] Moon Maloney MD Social History Tobacco Use [...] MD - 07/22/2018 12:00 AM CST UROLOGY [facility] : 1945 HX: [id number] DOS: 07/22/2018 SUBJECTIVE: Cristian saw me on [...] that he had. Moon Maloney M.D./la-15 cc: Casey Berry II, D.OWilliam/[facility] Electronically signed by:Moon Maloney M.D. Jul 27 2018 9:15AM PULP MILL TEAM LEADER * Moon Maloney MD - 06/23/2018 12:00 AM CST UROLOGY [facility] [place]ED[facility] : [id number] 06/23/2018 SUBJECTIVE: Cristian comes to see me [...] short-term ADT. He is not on any MUSIC MINISTER. His most recent PSA was 0.051 so [...] there. Moon Maloney M.D./mdh-14 cc: Dr. Kofi Navarro-[facility] Electronically signed by:Moon Maloney M.D. Jun 24 2018 12:40PM PULP MILL TEAM LEADER documented in this encounter Plan of Treatment Not on file documented as of this encounter Visit Diagnoses Not on filedocumented in this encounter Care Teams Cone Picker Relationship Specialty Start Date End Date Casey Berry II, DO PCP - General 11/22/06 08/17/19 Stephani Aleman MD PCP - General Family Medicine 08/18/19 09/16/20 Bianka Loera CNP [address] [place] [address] [address] [place] [phone] PCP - General Nurse Practitioner Family 09/17/20 712/31 Desiree Patrick MD [address] [place] [address] PCP - General Electrophysiology 02/23/22 03/09/22 Desiree Patrick MD [address] [place] [address] 08/09/17 Farrah Nicole APRN,CELL CHANGER [address] [place] [address] 08/09/17 Bry Echevarria MD [facility] [address] [place] [address] 08/09/17 Casey Berry II, DO 08/09/17 Shruti Vergara RN RN Registered Nurse 08/27/20 documented as of this encounter Additional Source Comments PLEASE NOTE: Replies to this message will not be received.[facility] and [facility]
--- OUTSIDE RECORDS SUMMARY | 2023-11-25 12:05 | XMS_ITS | Encounter Summary ---
Author Name Unknown Organization [employer] Address [address] [place] [address] Care Team Providers Care Buccaro Name Role Phone Jamal CARLISLE DO, Robert William Primary Care Provide r Unavailable Desiree Patrick MD Unavailable Farrah Nicole APRN,COST CONSULTANT Unavailable Bry Echevarria MD Unavailable [phone] Jamal CARLISLE DO, Robert William Unavailable Unav Stephani Diaz MD Primary Care Provider Shruti Vergara RN Unavailable Unavailable Bianka Loera CNP Primary Care Provider Desiree Patrick MD Primary Care P rovider Encounter Details Date Type Department Care Team (Late st Contact Info) Description 06/13/2018 Historical Conversion [facility] Family Medicine [address] [place], [place] [phone] Bry Echevarria MD [address] [place] [address] Social History Tobacco Use Types [...] Comments Blood Pressure 120/78 06/13/2018 12:00 AM LEAD MASON TENDER Pulse - - Temperature - - Respiratory Rate - - Oxygen Saturation - - Inhaled Oxygen Concentration - - Weight 93.8 kg (206 lb 12.7 oz) 018 12:00 AM LEAD MASON TENDER Height - - Body Mass Index 27.29 05/18/2018 8:54 AM LEAD MASON TENDER documented in this encounter Functional Status Functional [...] on filedocumented in this encounter Care Teams Buccaro Relationship Specialty Start Date End Date Casey Berry II, DO PCP - General 11/22/06 08/17/19 Stephani Aleman MD PCP - General Family Medicine 08/18/19 09/16/20 Bianka Loera CNP [address] [facility] [place] [address] PCP - General Nurse Practitioner Family 09/17/20 712/31 Desiree Patrick MD [address] [place] [phone] PCP - General Electrophysiology 02/23/22 03/09/22 Desiree Patrick MD [address] [place] [address] 08/09/17 Farrah Nicole APRN,COST CONSULTANT [address] [place] [address] 08/09/17 Bry Echevarria MD [address] [place] [address] [place] [address] 08/09/17 Casey Berry II, DO 08/09/17 Shruti Vergara RN RN Registered Nurse 08/27/20 documented as of this encounter Additional Source Comments PLEASE NOTE: Replies to this message will not be received.[facility]
--- OUTSIDE RECORDS SUMMARY | 2023-11-25 12:05 | XMS_ITS | Encounter Summary ---
Author Name Unknown Organization [employer] Address [address] [place] [address] Care Team Providers Care Asthma Educator Name Role Phone Jamal CARLISLE DO, Robert William Primary Care Provide r Unavailable Desiree Patrick MD Unavailable Farrah Nicole APRN,[employer] Unavailable Bry Echevarria MD Unavailable Jamal CARLISLE DO, Robert William Unavailable Unav Stephani Diaz MD Primary Care Provider Shruti Vergara RN Unavailable Unavailable Bianka Loera CNP Primary Care Provider Desiree Patrick MD Primary Care P rovider Encounter Details Date Type Department Care Team (Late st Contact Info) Description 06/23/2018 Historical Conversion [facility] Family Medicine [address] [place] [address] Moon Maloney MD Social History Tobacco Use [...] Comments Blood Pressure 120/62 06/23/2018 12:00 AM SHOE IRONER Pulse - - Temperature - - Respiratory Rate - - Oxygen Saturation - - Inhaled Oxygen Concentration - - Weight 93.5 kg (206 lb 2.1 oz) 06/23/2018 12:00 AM SHOE IRONER Height - - Body Mass Index 27.2 06/20/2018 8:23 AM SHOE IRONER documented in this encounter Functional Status Functional [...] on filedocumented in this encounter Care Teams Asthma Educator Relationship Specialty Start Date End Date Casey Berry II, DO PCP - General 11/22/06 08/17/19 Stephani Aleman MD PCP - General Family Medicine 08/18/19 09/16/20 Bianka Loera CNP [address] [facility] 2 [place] [phone] PCP - General Nurse Practitioner Family 09/17/2001/10 Desiree Patrick MD [address] [place] [phone] PCP - General Electrophysiology 02/23/22 03/09/22 Desiree Patrick MD [address] [place] [address] 08/09/17 Farrah Nicole APRN,[employer]IDENT [employer] [address] [place] [address] 08/09/17 Bry Echevarria MD [address] [place] [address] 08/09/17 Casey Berry II, DO 08/09/17 Shruti Vergara RN RN Registered Nurse 08/27/20 documented as of this encounter Additional Source Comments PLEASE NOTE: Replies to this message will not be received.[facility]
--- OUTSIDE RECORDS SUMMARY | 2023-11-25 12:05 | XMS_ITS | Encounter Summary ---
Author Name Unknown Organization [employer] Address [address] [place] [address] Care Team Providers Care Taste Tester Name Role Phone Jamal CARLISLE DO, Robert William Primary Care Provide r Unavailable Desiree Patrick MD Unavailable Farrah Nicole APRN,MULTISENSOR INTELLIGENCE OFFICER Unavailable Bry Echevarria MD Unavailable Jamal CARLISLE DO, Robert William Unavailable Unav Stephani Diaz MD Primary Care Provider Shruti Vergara RN Unavailable Unavailable Bianka Loera CNP Primary Care Provider [phone] Desiree Patrick MD Primary Care P rovider Encounter Details Date Type Department Care Team (Late st Contact Info) Description 07/01/2017 Historical Conversion [facility] Family Medicine [address] [place], [place] [phone] Bry Echevarria MD [address] [place] [address] Social History Tobacco Use Types [...] Comments Blood Pressure 136/70 07/01/2017 12:00 AM ELECTRICIAN DECK Pulse - - Temperature - - Respiratory Rate - - Oxygen Saturation - - Inhaled Oxygen Concentration - - Weight 97.6 kg (215 lb 2.7 oz) 07/01/2017 12:00 AM ELECTRICIAN DECK Height - - Body Mass Index 28.39 06/21/2017 2:27 PM ELECTRICIAN DECK documented in this encounter Functional Status Functional [...] on filedocumented in this encounter Care Teams Taste Tester Relationship Specialty Start Date End Date Casey Berry II, DO PCP - General 11/22/06 08/17/19 Stephani Aleman MD PCP - General Family Medicine 08/18/19 09/16/20 Bianka Loera CNP [address] [place] [address] 2 [place] [address] PCP - General Nurse Practitioner Family 09/17/20 712/31 Desiree Patrick MD [address] [place] [phone] PCP - General Electrophysiology 02/23/22 03/09/22 Desiree Patrick MD [address] [place] [address] 08/09/17 Farrah Nicole APRN,MULTISENSOR INTELLIGENCE OFFICER [address] [facility] [place] [address] 08/09/17 Bry Echevarria MD [address] [place] [address] [place] [address] 08/09/17 Casey Berry II, DO 08/09/17 Shruti Vergara RN RN Registered Nurse 08/27/20 documented as of this encounter Additional Source Comments PLEASE NOTE: Replies to this message will not be received.[facility] and [facility]
--- OUTSIDE RECORDS SUMMARY | 2023-11-25 12:05 | XMS_ITS | Encounter Summary ---
Author Name Unknown Organization [employer] Address [address] [place] [address] Care Team Providers Care Sewer Repairer Name Role Phone Jamal CARLISLE DO, Robert William Primary Care Provide r Unavailable Desiree Patrick MD Unavailable Farrah Nicole APRN,PAN HELPER Unavailable Bry Echevarria MD Unavailable [phone] Jamal CARLISLE DO, Robert William Unavailable Unav Stephani Diaz MD Primary Care Provider Shruti Vergara RN Unavailable Unavailable Bianka Loera CNP Primary Care Provider Desiree Patrick MD Primary Care P rovider Encounter Details Date Type Department Care Team (Late st Contact Info) Description 08/31/[address] [facility] Family Medicine [address] [facility] [place] [address] Desiree Rubi PAC [address] [place] [address] Social History Tobacco Use Types [...] Comments Blood Pressure 112/60 08/31/2017 12:00 AM SIGNS SALES REPRESENTATIVE Pulse - - Temperature - - Respiratory Rate - - Oxygen Saturation - - Inhaled Oxygen Concentration - - Weight 95.9 kg (211 lb 6.7 oz) 08/31/2017 12:00 AM SIGNS SALES REPRESENTATIVE Height - - Body Mass Index 27.89 07/27/2017 2:42 PM SIGNS SALES REPRESENTATIVE documented in this encounter Functional Status Functional [...] on filedocumented in this encounter Care Teams Sewer Repairer Relationship Specialty Start Date End Date Casey Berry II, DO PCP - General 11/22/06 08/17/19 Stephani Aleman MD PCP - General Family Medicine 08/18/19 09/16/20 Bianka Loera CNP [address] [facility] 2 [place] [address] PCP - General Nurse Practitioner Family 09/17/20 7/12/31 Desiree Patrick MD [address] [place] [phone] PCP - General Electrophysiology 02/23/22 03/09/22 Desiree Patrick MD [address] [place] [address] 08/09/17 Farrah Nicole APRN,PAN HELPER [address] [place] [address] 08/09/17 Bry Echevarria MD [address] [place] [address] [place] [address] 08/09/17 Casey Berry II, DO 08/09/17 Shruti Vergara RN RN Registered Nurse 08/27/20 documented as of this encounter Additional Source Comments PLEASE NOTE: Replies to this message will not be received.[facility] and [facility]
--- OUTSIDE RECORDS SUMMARY | 2023-11-25 12:05 | XMS_ITS | Encounter Summary ---
Author Name Unknown Organization [employer] Address [address] [place] [address] Care Team Providers Care Non Destructive Testing Supervisor Name Role Phone Jamal CARLISLE DO, Robert William Primary Care Provide r Unavailable Desiree Patrick MD Unavailable Farrah Nicole APRN,ED PHYSICIANS Unavailable Bry Echevarria MD Unavailable [phone] Jamal CARLISLE DO, Robert William Unavailable Unav Stephani Diaz MD Primary Care Provider [phone] Shruti Vergara RN Unavailable Unavailable Bianka Loera CNP Primary Care Provider [phone] Desiree Patrick MD Primary Care P rovider Encounter Details Date Type Department Care Team (Late st Contact Info) Description 09/07/[address] [facility] Family Medicine [address] [place] [address] Casey Berry II, DO Social History Tobacco [...] Bilateral leg pain History of Present Illness Qeqnxgp-tgc-jyhu-old male who states that he was shoveling [...] TAKE 1 CAPSULE EVERY 12 HOURS; Last Rx:[id number] Ordered 2. Lisinopril 10 MG Oral Tablet; TAKE ONE TABLET DAILY; Therapy: 18Oct2017 to Recorded 3. Metoclopramide HCl - 5 MG Oral Tablet; TAKE 1 TABLET BY MOUTH THREE TIMES DAILY WITH MEALS NEEDED; Therapy: 10Sep2014 to (Evaluate:29Oct2017) Requested for: [id number]; Last Rx:[id number] Ordered 4. Polyethylene Glycol 3350 Oral Powder; take 17 grams in 8 ounces of fluid once daily as needed for constipation; Therapy: 73Qre2197 to (Evaluate:27May2018); Last Rx:[id number] Ordered 5. Triamcinolone Acetonide 0.1 % External Lotion; APPLY 2-3 TIMES DAILY TO AFFECTED AREA(S); Therapy: 15Hjx4392 to (Last Rx:[id number]) Requested for: [id number] Ordered 6. Warfarin Sodium 5 MG Oral Tablet; Take as directed by ACC; Therapy: 10Xpr6018 to (Evaluate:10Sep2018) Requested for: 15Sep2017 Recorded Allergies [...] Casey Berry DO; Oct 25 2017 10:02AM FINANCIAL SERVICES OFFICER documented in this encounter H&P Notes * Casey Berry MAYLIN, - 09/07/2017 12:00 AM CST Assessment 1. [...] healthy by no longer smoking.; Status:Complete; Done: [id number] Reason For Visit Routine history and physical. [...] DAILY; Therapy: 14Apr2017 to (Evaluate:27May2018) Requested for: 63Qye4599; Last Rx:[id number] Ordered 3. Dofetilide 250 MCG Oral Capsule; TAKE 1 CAPSULE EVERY 12 HOURS; Last Rx:[id number] Ordered 4. Metoclopramide HCl - 5 MG Oral Tablet; TAKE 1 TABLET BY MOUTH THREE TIMES DAILY WITH MEALS NEEDED; Therapy: 10Sep2014 to (Evaluate:79Wrk0928) Requested for: 92Lfw2491; Last Rx:[id number] Ordered 5. Metoprolol Tartrate 50 MG Oral Tablet; TAKE 1/2 TABLET TWICE DAILY; Therapy: (Recorded:[id number]) to Recorded 6. Polyethylene Glycol 3350 Oral Powder; take 17 grams in 8 ounces of fluid once daily as needed for constipation; Therapy: 01Jul2017 to (Evaluate:27May2018); Last Rx:[id number] Ordered 7. Warfarin Sodium 5 MG Oral Tablet; Take as directed by ACC; Therapy: 72Xsa1711 to (Evaluate:28May2018) Requested for: 02Jun2017 Recorded Allergies 1. Penicillins 2. Sulfa Drugs PENICILLIN AND SULFA. Immunizations Prevnar in 2016. Pneumovax in 2009. Tetanus in 2013. Shingles in 2009. Vitals Recorded: [id number] 08:20AM Systolic 144 Diastolic 85 Heart Rate [...] done by Urology. Signatures Casey Berry II, Arcadio.[email or web address]/[email or web address] Electronically signed by : Casey Berry DO; Sep 20 2017 7:51AM FINANCIAL SERVICES OFFICER documented in this encounter Plan of Treatment Not on file documented as of this encounter Visit Diagnoses Not on filedocumented in this encounter Care Teams Non Destructive Testing Supervisor Relationship Specialty Start Date End Date Casey Berry II, DO PCP - General 11/22/06 08/17/19 Stephani Aleman MD PCP - General Family Medicine 08/18/19 09/16/20 Bianka Loera CNP [address] [place] [address] 2 [place] [phone] PCP - General Nurse Practitioner Family 09/17/2001/10 [place] [address] [place] [phone] PCP - General Electrophysiology 02/23/22 03/09/22 Desiree Patrick MD [address] [place] [address] 08/09/17 Farrah Nicole APRN,ED PHYSICIANS [address] [place] [address] 08/09/17 Bry Echevarria MD [address] [place] [address] 08/09/17 Casey Berry II, DO 08/09/17 Shruti Vergara RN RN Registered Nurse 08/27/20 documented as of this encounter Additional Source Comments PLEASE NOTE: Replies to this message will not be received.[facility] and [facility]
--- OUTSIDE RECORDS SUMMARY | 2023-11-25 12:05 | XMS_ITS | Encounter Summary ---
Author Name Unknown Organization [employer] Address [address] [place] [address] Care Team Providers Care District Scout Executive Name Role Phone Jamal CARLISLE DO, Robert William Primary Care Provide r Unavailable Desiree Patrick MD Unavailable Farrah iNcole APRN,KNITTING MACHINE OPERATOR HELPER Unavailable Bry Echevarria MD Unavailable Jamal CARLISLE DO, Robert William Unavailable Unav Stephani Diaz MD Primary Care Provider [phone] Shruti Vergara RN Unavailable Unavailable Bianka Loera CNP Primary Care Provider Desiree Patrick MD Primary Care P rovider Encounter Details Date Type Department Care Team (Late st Contact Info) Description 06/25/2017 Historical Conversion [facility] Family Medicine [address] [place] [address] Social History Tobacco Use Types Packs/Day Years [...] as of this encounter Progress Notes * [facility], GENERICPROVIDER - 06/25/2017 12:00 AM CST Medication Reconciliation Post Discharge Name: CRISTIAN BLEDSOE Date of Discharge: 06/24/2017 Current Meds 1. Digoxin 125 MCG Oral Tablet; Therapy: (Recorded:[id number]) to Recorded 2. DilTIAZem HCl - 60 MG Oral Tablet; TAKE 1 TABLET BY MOUTH DAILY; Therapy: 14Apr2017 to (Evaluate:[id number]) Requested for: [id number] Recorded 3. Dofetilide 250 MCG Oral Capsule; TAKE 1 CAPSULE TWICE DAILY; Therapy: (Recorded:[id number]) to Recorded 4. Metoclopramide HCl - 5 MG Oral Tablet (Reglan); TAKE 1 TABLET BY MOUTH THREE TIMES DAILY WITH MEALS; Therapy: 10Sep2014 to (Evaluate:17Sep2017) Requested for: 20May2017; Last Rx:20May2017 Ordered 5. Metoprolol Tartrate 50 MG Oral Tablet; TAKE 1 TABLET TWICE DAILY; Therapy: (Recorded:[id number]) to Recorded 6. Tylenol Extra Strength 500 MG Oral Tablet; Therapy: (Recorded:[id number]) to Recorded 7. Warfarin Sodium 5 MG Oral Tablet (Coumadin); Take as directed by [facility]; Therapy: [id number] to (Evaluate:28May2018) Requested for: 02Jun2017 Recorded Medication [...] INR checked next week. Reviewed 24 hour manager consumer insights line, when to call PCP, and when to call 911. Patient voiced understanding. STACY Rasheed Follow-Up Recommendations Follow up with the following provider(s): cardiology 1 mo I reviewed with the patient the 24 hour nurse line and ecouraged them to call if they had any questions or concerns. Patient voiced understanding. Signatures Electronically signed by : Emma Estrella RN; Jun 25 2017 11:25AM RIGHT OF WAY APPRAISER documented in this encounter Plan of Treatment Not on file documented as of this encounter Visit Diagnoses Not on filedocumented in this encounter Care Teams District Scout Executive Relationship Specialty Start Date End Date Casey Berry II, DO PCP - General 11/22/06 08/17/19 Stephani Aleman MD PCP - General Family Medicine 08/18/19 09/16/20 Bianka Loera CNP [address] [place] [address] [address] [place] [address] PCP - General Nurse Practitioner Family 09/17/20 7/12/31 Desiree Patrick MD [address] [place] [place] [address] PCP - General Electrophysiology 02/23/22 03/09/22 Desiree Patrick MD [address] [place] [place] [facility] [place] [address] 08/09/17 Farrah Nicole APRN,KNITTING MACHINE OPERATOR HELPER [address] [place] [place] [address] 08/09/17 Bry Echevarria MD [address] [place] [address] 08/09/17 Casey Berry II, DO 08/09/17 Shruti Vergara RN RN Registered Nurse 08/27/20 documented as of this encounter Additional Source Comments PLEASE NOTE: Replies to this message will not be received.[facility] hospital [facility]
--- OUTSIDE RECORDS SUMMARY | 2023-11-25 12:05 | XMS_ITS | Encounter Summary ---
Author Name Unknown Organization [employer] Address [address] [place] [address] Care Team Providers Care Financial Institution Treasurer Name Role Phone Jamal CARLISLE DO, Robert William Primary Care Provide r Unavailable Desiree Patrick MD Unavailable Farrah Nicole APRN,DONOR RECRUITER Unavailable Bry Echevarria MD Unavailable Jamal CARLISLE DO, Robert William Unavailable Unav Stephani Diaz MD Primary Care Provider [phone] Shruti Vergara RN Unavailable Unavailable Bianka Loera CNP Primary Care Provider [phone] Desiree Patrick MD Primary Care P rovider Encounter Details Date Type Department Care Team (Late st Contact Info) Description 09/07/2017 Historical Conversion [facility] Family Medicine [address] [place] [address] Casey Berry II, DO Social History Tobacco [...] Comments Blood Pressure 144/85 09/07/2017 12:00 AM SODA FOUNTAIN CLERK Pulse - - Temperature - - Respiratory Rate - - Oxygen Saturation - - Inhaled Oxygen Concentration - - Weight 94.3 kg (207 lb 14.3 oz) 018 12:00 AM SODA FOUNTAIN CLERK Height 185.5 cm (6' 1.03) 09/07/2017 1 2:00 AM SODA FOUNTAIN CLERK Body Mass Index 27.4 09/07/2017 12:00 AM SODA FOUNTAIN CLERK documented in this encounter Functional Status Functional [...] on filedocumented in this encounter Care Teams Financial Institution Treasurer Relationship Specialty Start Date End Date Casey Berry II, DO PCP - General 11/22/06 08/17/19 Stephani Aleman MD PCP - General Family Medicine 08/18/19 09/16/20 Bianka Loera CNP [address] [facility] [address] [place] [address] PCP - General Nurse Practitioner Family 09/17/2001/10 [place] [address] [place] [address] PCP - General Electrophysiology 02/23/22 03/09/22 Desiree Patrick MD [address] [facility] [address] 08/09/17 Farrah Nicole APRN,DONOR RECRUITER [address] [facility] [place] [address] 08/09/17 Bry Echevarria MD [address] [place] [address] [facility] [place] [address] 08/09/17 Casey Berry II, DO 08/09/17 Shruti Vergara RN RN Registered Nurse 08/27/20 documented as of this encounter Additional Source Comments PLEASE NOTE: Replies to this message will not be received.[facility]
--- OUTSIDE RECORDS SUMMARY | 2023-11-25 12:05 | XMS_ITS | Encounter Summary ---
Author Name Unknown Organization [employer] Address [address] [place] [address] Care Team Providers Care Sludge Filtration Attendant Name Role Phone Jamal CARLISLE DO, Robert William Primary Care Provide r Unavailable Desiree Patrick MD Unavailable Farrah Nicole APRN,CYTOLOGY SUPERVISOR Unavailable [phone] Bry Echevarria MD Unavailable Jamal CARLISLE DO, Robert William Unavailable Unav Stephani Diaz MD Primary Care Provider Shruti Vergara RN Unavailable Unavailable Bianka Loera CNP Primary Care Provider Desiree Patrick MD Primary Care P rovider Encounter Details Date Type Department Care Team (Late st Contact Info) Description 10/18/2017 Historical Conversion [facility] Family Medicine [address] [place] [address] Casey Berry II, DO Social History Tobacco [...] Body Mass Index 27.09 09/07/2017 12:00 AM CATALOGUE LIBRARIAN documented in this encounter Functional Status Functional [...] on filedocumented in this encounter Care Teams Sludge Filtration Attendant Relationship Specialty Start Date End Date Casey Berry II, DO PCP - General 11/22/06 08/17/19 Stephani Aleman MD PCP - General Family Medicine 08/18/19 09/16/20 Bianka Loera CNP [address] [facility] [place] [phone] PCP - General Nurse Practitioner Family 09/17/2001/10 [place] [address] [place] [phone] PCP - General Electrophysiology 02/23/22 03/09/22 Desiree Patrick MD [address] [place] [address] 08/09/17 Farrah Nicole APRN,CYTOLOGY SUPERVISOR [address] [place] [address] 08/09/17 Bry Echevarria MD [address] [place] [address] 08/09/17 Casey Berry II, DO 08/09/17 Shruti Vergara RN RN Registered Nurse 08/27/20 documented as of this encounter Additional Source Comments PLEASE NOTE: Replies to this message will not be received.[facility] and [facility]
--- OUTSIDE RECORDS SUMMARY | 2023-11-25 12:05 | XMS_ITS | Encounter Summary ---
Author Name Unknown Organization [employer] Address [address] [place] [address] Care Team Providers Care Gas Golf Cart Repairer Name Role Phone Jamal CARLISLE DO, Robert William Primary Care Provide r Unavailable Desiree Patrick MD Unavailable Farrah Nicole APRN,SCIENTIFIC PROGRAMMER ANALYST Unavailable Bry Echevarria MD Unavailable Jamal CARLISLE DO, Robert William Unavailable Unav Stephani Diaz MD Primary Care Provider Shruti Vergara RN Unavailable Unavailable Bianka Loera CNP Primary Care Provider Desiree Patrick MD Primary Care P rovider Encounter Details Date Type Department Care Team (Late st Contact Info) Description 03/01/2018 Historical Conversion [facility] Family [facility] [address] [facility] [place] [address] Desiree Rubi PAC [address] [place] [address] Social History Tobacco Use Types [...] Body Mass Index 26.81 09/07/2017 12:00 AM INSURANCE AUDITOR documented in this encounter Functional Status Functional [...] CDT UROLOGY CRISTIAN BLEDSOE : 1945 HX: [id number] DOS: 03/01/2018 HISTORY OF PRESENT ILLNESS: This patient is a 72-year-old gentleman who presents to the Urology clinic. In the past he has had a rubber nodularity on both sides of his prostate with a PSA velocity change. His PCA3 came back positive in the past. He had a biopsy in October 2016 that showed Curt 6 prostate cancer at the left base of the prostate involving 2%. He also had [place] 7 cancerat the left mid-prostate involving 5% of the tissue. The right mid-prostate had Curt 7 cancer involving 20% of the tissue in the area. Also, at the right apex, he had [place] 7 cancer involving 5%of the tissue. He [...] think he normally sees Farrah Jacobo APRN, SCIENTIFIC PROGRAMMER ANALYST, at the [facility], so we will try to reach [...] above. ASSESSMENT: 1. 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 He [...] meantime we will check with Cardiology in [place] about the option of Viagra or Cialis [...] P.A.-C./jmf- 24 cc: Jose Winslow M.D./Radiation Oncology [facility] cc: Casey Berry D.O./[facility] cc: Moon Maloney M.D./[facility] Electronically signed by:Desiree Rubi PA-C Mar 04 2018 1:27PM INSURANCE AUDITOR documented in this encounter Plan of Treatment Not on file documented as of this encounter Visit Diagnoses Not on filedocumented in this encounter Care Teams Gas Golf Cart Repairer Relationship Specialty Start Date End Date Casey Berry II, DO PCP - General 11/22/06 08/17/19 Stephani Aleman MD PCP - General Family Medicine 08/18/19 09/16/20 Bianka Loera WEB MARKETING MANAGER [address] [place] [phone] PCP - General Nurse Practitioner Family 09/17/20 712/31 Desiree Patrick MD [address] [place] [address] PCP - General Electrophysiology 02/23/22 03/09/22 Desiree Patrick MD [address] [place] [address] 08/09/17 Farrah Nicole APRN,SCIENTIFIC PROGRAMMER ANALYST [address] [place] [address] 08/09/17 Bry Echevarria MD [address] [place] [address] [facility] [place] [address] 08/09/17 Casey Berry II, DO 08/09/17 Shruti Vergara RN RN Registered Nurse 08/27/20 documented as of this encounter Additional Source Comments PLEASE NOTE: Replies to this message will not be received.[facility] and [facility]
--- OUTSIDE RECORDS SUMMARY | 2023-11-25 12:05 | XMS_ITS | Encounter Summary ---
Author Name Unknown Organization [employer] Address [address] [place] [address] Care Team Providers Care Hair Designer Name Role Phone Jamal CARLISLE DO, Robert William Primary Care Provide r Unavailable Desiree Patrick MD Unavailable Farrah Nicole APRN,TUBE LASER OPERATOR Unavailable Bry Echevarria MD Unavailable [phone] Jamal CARLISLE DO, Robert William Unavailable Unav Stephani Diaz MD Primary Care Provider Shruti Vergara RN Unavailable Unavailable Bianka Loera CNP Primary Care Provider [phone] Desiree Patrick MD Primary Care P rovider Encounter Details Date Type Department Care Team (Late st Contact Info) Description 06/13/2018 Historical Conversion [facility] Family Medicine [address] [phone] Bry Echevarria MD [address] [place] [address] Social History Tobacco Use Types [...] AM CST CRISTIAN BLEDSOE : 1945 HX: [id number] DOS: 06/13/2018 SUBJECTIVE: Patient is a 72-year-old [...] Jose Winslow in Radiation Oncology at the [facility]. He has not recently had cystoscopy. He [...] Prostate cancer, status post treatment with radiation. [place] to be under good control at this [...] later. Bry Echevarria M.D./ekg-6 cc: Yury Berry DO/[facility] [place] cc: Elder Maloney MD/[facility] [place] cc: Mare Rubi PA-C/[facility] [place] cc: Jose Winslow MD/[place] [facility] Electronically signed by:Bry Echevarria M.D. Jun 16 2018 2:16PM LOW HEEL BUILDER documented in this encounter Plan of Treatment Not on file documented as of this encounter Visit Diagnoses Not on filedocumented in this encounter Care Teams Hair Designer Relationship Specialty Start Date End Date Casey Berry II, DO PCP - General 11/22/06 08/17/19 Stephani Aleman MD PCP - General Family Medicine 08/18/19 09/16/20 Bianka Loera, WORKDAY SENIOR ASSOCIATE [address] [place] [phone] PCP - General Nurse Practitioner Family 09/17/2001/10 Desiree Patrick MD [address] [place] [address] PCP - General Electrophysiology 02/23/22 03/09/22 Desiree Patrick MD [address] [place] [address] 08/09/17 Farrah Nicole, ACQUISITION MARKETING MANAGER,TUBE LASER OPERATOR [address] [place] [address] 08/09/17 Bry Echevarria MD [address] [place] [address] 08/09/17 Casey Berry II, DO 08/09/17 Shruti Vergara RN RN Registered Nurse 08/27/20 documented as of this encounter Additional Source Comments PLEASE NOTE: Replies to this message will not be received.[facility] and [facility]
--- OUTSIDE RECORDS SUMMARY | 2023-11-25 12:05 | XMS_ITS | Encounter Summary ---
Author Name Unknown Organization [email or web address] Address [address] [place] [address] Care Team Providers Care Commercial Airplane Pilot Name Role Phone Jamal CARLISLE DO, Robert William Primary Care Provide r Unavailable Desiree Patrick MD Unavailable Farrah Nicole APRN,SITE FOREMAN Unavailable Bry Echevarria MD Unavailable Jamal CARLISLE DO, Robert William Unavailable Unav Stephani Diaz MD Primary Care Provider Shruti Vergara RN Unavailable Unavailable Bianka Loera CNP Primary Care Provider Desiree Patrick MD Primary Care P rovider Encounter Details Date Type Department Care Team (Late st Contact Info) Description 07/01/2017 Historical Conversion [facility] Family Medicine [address] [place] [address] Social History Tobacco Use Types Packs/Day Years [...] as of this encounter Procedure Notes * [facility]USTINL[facility] - 06/14/2018 12:00 AM CSTAssociated Order(s): ANTICOAGULATION [...] by:Tiffani Carrero RN Jun 14 2018 7:43PM ACOUSTICS TEACHER * [facility] MICHELLEPROVIDER - 05/17/2018 12:00 AM CSTAssociated Order(s): ANTICOAGULATION [facility] Name: CRISTIAN BLEDSOE : 1945 DOS: [...] by:Tiffani Carrero RN May 17 2018 11:41AM ACOUSTICS TEACHER * [facility] - 04/26/2018 12:00 AM CDTAssociated Order(s): ANTICOAGULATION [facility] Name: CRISTIAN BLEDSOE : 1945 DOS: [...] by:Tiffani Carrero RN Apr 26 2018 4:12PM ACOUSTICS TEACHER * [facility] - 03/22/2018 12:00 AM CDTAssociated Order(s): ANTICOAGULATION [facility] Name: CRISTIAN BLEDSOE : 1945 DOS: [...] by:Tiffani Carrero RN Mar 22 2018 3:06PM ACOUSTICS TEACHER * [facility] - 02/23/2018 12:00 AM CDTAssociated Order(s): ANTICOAGULATION Anticoagulation [facility] Name: CRISTIAN BLEDOSE : 1945 DOS: 02/23/2018 Cristian is a [...] by:Tiffani Carrero RN Feb 23 2018 10:29AM ACOUSTICS TEACHER * MICHELLE AUSTINLUBNA - 02/09/2018 12:00 AM CDTAssociated Order(s): ANTICOAGULATION Anticoagulation [facility] Name: CRISTIAN BLEDSOE : 1945 DOS: 02/09/2018 Cristian is a patient of Dr. Berry. He is here today for anticoagulation assessment and INR check for adiagnosis of atrial fibrillation. Patient states that he has been feeling well. He denies any medication changes since his last INR check. Patient reports that he recently took a trip to [place] and forgot to take his Coumadin during the weekend. INR tested today is 1.8 with the recommended range of 2.0 to 3.0. Patient will continue Coumadin at 7.5 mg on Wednesdays and 5 mg all other days withan INR recheck in two weeks. Patient verbalizes understanding. Electronically signed by:Tiffani Carrero RN Feb 09 2018 4:06PM ACOUSTICS TEACHER * [facility] GENERIC[facility]OVID[facility] - 07/01/2017 12:00 AM CSTAssociated Order(s): ANTICOAGULATION Name: CRISTIAN BLEDSOE : 1945 DOS: 07/01/2017 Cristian is a patient of Dr. Berry. He is here today for anticoagulation assessment and INR check for adiagnosis of atrial fibrillation. Patient was seen in clinic by Dr. Echevarria today post cardioversion. Patient had a cardioversion on 06/24 at [facility] and he reports it went well. He [...] by:Theresa Crowder RN Jul 01 2017 5:02PM ACOUSTICS TEACHER documented in this encounter Plan of Treatment Not on file documented as of this encounter Procedures Procedure Name Priority Date/Time Associated Diagnosis Comments ANTICOAGULATION 06/14/2018 ANTICOAGULATION 05/17/2018 ANTICOAGULATION 04/26/2018 ANTICOAGULATION 03/22/2018 ANTICOAGULATION 02/23/2018 ANTICOAGULATION 02/09/2018 ANTICOAGULATION 07/01/2017 documented in this encounter Results * ANTICOAGULATION (06/14/2018) Narrative Procedure Note [facility] - 06/14/2018 12:00 AM CST Name: CRISTIAN [...] by:Tiffani Carrero RN Jun 14 2018 7:43PM ACOUSTICS TEACHER [facility] OTHER * ANTICOAGULATION (05/17/2018) Narrative Procedure Note [facility] - 05/17/2018 12:00 AM CST Anticoagulation [facility] Name: CRISTIAN BLEDSOE : 1945 DOS: [...] by:Tiffani Carrero RN May 17 2018 11:41AM ACOUSTICS TEACHER [facility] OTHER * ANTICOAGULATION (04/26/2018) Narrative Procedure Note [facility] - 04/26/2018 12:00 AM CDT Anticoagulation [facility] Name: CRISTIAN BLEDSOE : 1945 DOS: [...] by:Tiffani Carrero RN Apr 26 2018 4:12PM ACOUSTICS TEACHER [facility] * ANTICOAGULATION (03/22/2018) Narrative Procedure Note [facility] - 03/22/2018 12:00 AM CDT Anticoagulation [facility] Name: CRISTIAN BLEDSOE : 1945 DOS: [...] by:Tiffani Carrero RN Mar 22 2018 3:06PM ACOUSTICS TEACHER [facility] OTHER * ANTICOAGULATION (02/23/2018) Narrative Procedure Note [facility] 02/23/2018 12:00 AM CDT Anticoagulation [facility] Name: CRISTIAN BLEDSOE : 1945 DOS: 02/23/2018 [...] by:Tiffani Carrero RN Feb 23 2018 10:29AM ACOUSTICS TEACHER [facility] OTHER * ANTICOAGULATION (02/09/2018) Narrative Procedure Note [facility] - 02/09/2018 12:00 AM CDT [facility]tico[facility] Name: CRISTIAN BLEDSOE : 1945 DOS: [...] by:Tiffani Carrero RN Feb 09 2018 4:06PM ACOUSTICS TEACHER [facility] OTHER * ANTICOAGULATION (07/01/2017) Narrative Procedure Note [facility] - 07/01/2017 12:00 AM CST Name: CRISTIAN BLEDSOE : 1945 DOS: 07/01/2017 Cristian is a patient of Dr. Berry. He is here today for anticoagulationassessment and INR check for a diagnosis of atrial fibrillation. Patientwas seen in clinic by Dr. Echevarria today post cardioversion. Patient had acardioversion on 06/24 at [facility] and he reports it went well. Hestates [...] by:Theresa Crowder RN Jul 01 2017 5:02PM ACOUSTICS TEACHER Genericprovider [facility] OTHER documented in this encounter Visit Diagnoses Not on filedocumented in this encounter Care Teams Commercial Airplane Pilot Relationship Specialty Start Date End Date Casey Berry II, DO PCP - General 11/22/06 08/17/19 Stephani Aleman MD PCP - General Family Medicine 08/18/19 09/16/20 Bianka Loera CNP [address] [place] [address] [address] [place] [phone] PCP - General Nurse Practitioner Family 09/17/20 712/31 Desiree Patrick MD [address] [place] [address] PCP - General Electrophysiology 02/23/22 03/09/22 Desiree Patrick MD [address] [place] [address] 08/09/17 Farrah Nicole APRN,ALEX [address] [place] [address] 08/09/17 Bry Echevarria MD [address] [place] [address] 08/09/17 Casey Berry II, DO 08/09/17 Shruti Vergara RN RN Registered Nurse 08/27/20 documented as of this encounter Additional Source Comments PLEASE NOTE: Replies to this message will not be received.[facility] and [facility]
--- OUTSIDE RECORDS SUMMARY | 2023-11-25 12:05 | XMS_ITS | Encounter Summary ---
Author Name Unknown Organization [employer] Address [address] [place] [address] Care Team Providers Care Petrography Teacher Name Role Phone Jamal CARLISLE DO, Robert William Primary Care Provide r Unavailable Desiree Patrick MD Unavailable Farrah Nicole APRN,SULKY DRIVER Unavailable Bry Echevarria MD Unavailable Jamal CARLISLE DO, Robert William Unavailable Unav Stephani Diaz MD Primary Care Provider Shruti Vergara RN Unavailable Unavailable Bianka Loera CNP Primary Care Provider Desiree Patrick MD Primary Care P rovider Encounter Details Date Type Department Care Team (Late st Contact Info) Description 06/13/2018 Historical Conversion [facility] Family Medicine [address] [place] [phone] Social History Tobacco Use Types Packs/Day Years [...] as of this encounter Progress Notes * [facility] GENERICPROVID[facility] - 11/02/2018 12:00 AM CDT Balance [...] week. Joan Everett PTA/Kassy Barone PT, [place] #[id number] Electronically signed by:Joan Everett PTA Nov 02 2018 2:00PM FLYER MAKER Switch Repairer/Recorder Electronically signed by:Trish Barone PT Nov 07 2018 4:43PM FLYER MAKER * [facility] A[facility]INPROLUBNA - 10/26/2018 12:00 AM CDT Balance Center [...] by:Joan Everett PTA Oct 28 2018 7:51AM FLYER MAKER Switch Repairer/Recorder Electronically signed by:Trish Barone PT Oct 31 2018 7:01PM FLYER MAKER * [facility] [place] - 09/19/2018 12:00 AM CDT PHYSICAL THERAPY STUDENT NOTE BALANCE EVALUATION CRISTIAN BLEDSOE : 1945 HX: [id number] DOS: 09/19/2018 REFERRING PROVIDER: Casey Berry D.O. 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 He is currently [...] PATIENT RECEIVED: Patient received 30 minutes of xlax-wa-lmsw evaluation with three or more comorbidities and three or more elements addressed. Clinical presentation is evolving and clinical complexity is moderate. Patient also received canalith repositioning maneuvers on this date. Lennox LEAHY/Trish Barone, PT #[id number] / lb-12 cc: Casey Berry D.O., [facility] Electronically signed by:Lennox Malagon Sep 20 2018 7:56PM FLYER MAKER Co-author Electronically signed by:Lennox Malagon Sep 27 2018 8:39AM FLYER MAKER Co-author Electronically signed by:Trish Barone PT Oct 02 2018 5:18PM FLYER MAKER documented in this encounter Procedure Notes * [facility] 10/26/2018 12:00 AM CDTAssociated Order(s): ANTICOAGULATION [...] by:Tiffani Carrero RN Oct 26 2018 4:16PM FLYER MAKER * [facility] MICHELLEPROBRANDO - 10/11/2018 12:00 AM CDTAssociated Order(s): ANTICOAGULATION [facility] Name: CRISTIAN BLEDSOE : 1945 [...] by:Tiffani Carrero RN Oct 11 2018 3:39PM FLYER MAKER * [facility] - 09/07/2018 12:00 AM CSTAssociated Order(s): ANTICOAGULATION [facility] Name: CRISTIAN BLEDSOE : 1945 DOS: 09/07/2018 [...] by:Tiffani Carrero RN Sep 07 2018 3:31PM FLYER MAKER * [facility] - 08/22/2018 12:00 AM CSTAssociated Order(s): ANTICOAGULATION Anticoagulation [facility] Name: CRISTIAN BLEDSOE : 1945 DOS: 08/22/2018 [...] by:Tiffani Carrero RN Aug 22 2018 2:48PM FLYER MAKER * [facility] - 07/13/2018 12:00 AM CSTAssociated Order(s): ANTICOAGULATION [facility] Name: CRISTIAN BLEDSOE : 1945 [...] by:Tiffani Carrero RN Jul 13 2018 2:41PM FLYER MAKER * [facility] MICHELLEPROGINABRANDO - 06/13/2018 12:00 AM CSTAssociated Order(s): ANTICOAGULATION [...] Deborah Mandel RN; Jun 13 2018 12:37PM FLYER MAKER documented in this encounter Plan of Treatment Not on file documented as of this encounter Procedures Procedure Name Priority Date/Time Associated Diagnosis Comments ANTICOAGULATION 10/26/2018 ANTICOAGULATION 10/11/2018 ANTICOAGULATION 09/07/2018 ANTICOAGULATION 08/22/2018 ANTICOAGULATION 07/13/2018 ANTICOAGULATION 06/13/2018 documented in this encounter Results * ANTICOAGULATION (10/26/2018) Narrative Procedure Note [facility]PROGIN[facility] - 10/26/2018 12:00 AM CDT Name: CRISTIAN [...] by:Tiffani Carrero RN Oct 26 2018 4:16PM FL[facility]ER [facility]KER [facility] OTHER * ANTICOAGULATION (10/11/2018) Narrative Procedure Note [facility], GENERICPROGINADER - 10/11/2018 12:00 AM CDT Anticoagulation [facility] Name: CRISTIAN BLEDSOE : 1945 [...] by:Tiffani Carrero RN Oct 11 2018 3:39PM FLYER MAKER [facility] OTHER * ANTICOAGULATION (09/07/2018) Narrative Procedure Note [facility] - 09/07/2018 12:00 AM CST Anticoagulation [facility] Name: CRISTIAN BLEDSOE : 1945 DOS: 09/07/2018 [...] by:Tiffani Carrero RN Sep 07 2018 3:31PM FLYER MAKER [facility] OTHER * ANTICOAGULATION (08/22/2018) Narrative Procedure Note [facility], [facility] - 08/22/2018 12:00 AM CST Anticoagulation [facility] Name: CRISTIAN BLEDSOE : 1945 DOS: 08/22/2018 [...] by:Tiffani Carrero RN Aug 22 2018 2:48PM FLYER MAKER [facility] OTHER * ANTICOAGULATION (07/13/2018) Narrative Procedure Note [facility] - 07/13/2018 12:00 AM CST Anticoagulation [facility] Name: CRISTIAN BLEDSOE : 1945 [...] by:Tiffani Carrero RN Jul 13 2018 2:41PM FLYER MAKER [facility] OTHER * ANTICOAGULATION (06/13/2018) Narrative Procedure Note [facility] - 06/13/2018 12:00 AM CST [...] Deborah Mandel RN; Jun 13 2018 12:37PM FLYER MAKER [facility] OTHER documented in this encounter Visit Diagnoses Not on filedocumented in this encounter Care Teams Petrography Teacher Relationship Specialty Start Date End Date Casey Berry II, DO PCP - General 11/22/06 08/17/19 Stephani Aleman MD PCP - General Family Medicine 08/18/19 09/16/20 Bianka Loera CNP [address] [place] [phone] PCP - General Nurse Practitioner Family 09/17/2001/10 Desiree Patrick MD [address] [place] [address] PCP - General Electrophysiology 02/23/22 03/09/22 Desiree Patrick MD [address] [place] [address] 08/09/17 Farrah Nicole APRN,SULKY DRIVER [address] [place] [address] 08/09/17 Bry Echevarria MD Formerly named [facility] [place] [address] 08/09/17 Casey Berry II, DO 08/09/17 Shruti Vergara RN RN Registered Nurse 08/27/20 documented as of this encounter Additional Source Comments PLEASE NOTE: Replies to this message will not be received.[facility] and [facility]
--- OUTSIDE RECORDS SUMMARY | 2023-11-25 12:05 | XMS_ITS | Encounter Summary ---
Author Name Unknown Organization [employer] Address [address] [place] [address] Care Team Providers Care Chimney Construction Supervisor Name Role Phone Jamal CARLISLE DO, Robert William Primary Care Provide r Unavailable Desiree Patrick MD Unavailable Farrah Nicole APRN,PAINTER AIRBRUSH Unavailable [phone] Bry Echevarria MD Unavailable [phone] Jamal CARLISLE DO, Robert William Unavailable Unav Stephani Diaz MD Primary Care Provider Shruti Vergara RN Unavailable Unavailable Bianka Loera CNP Primary Care Provider Desiree Patrick MD Primary Care P rovider Encounter Details Date Type Department Care Team (Late st Contact Info) Description 04/06/2017 Historical Conversion [facility] Family Medicine [address] [place] [phone] Casey Berry II, DO Social History Tobacco [...] filedocumented in this encounter Care Teams Chimney Construction Supervisor Relationship Specialty Start Date End Date Casey Berry II, DO PCP - General 11/22/06 08/17/19 Stephani Aleman MD PCP - General Family Medicine 08/18/19 09/16/20 Bianka Loera CNP [address] [facility] [place] [phone] PCP - General Nurse Practitioner Family 09/17/2001/10 Desiree Patrick MD [address] [place] [phone] PCP - General Electrophysiology 02/23/22 03/09/22 Desiree Patrick MD [address] [place] [address] 08/09/17 Farrah Nicole APRN,PAINTER AIRBRUSH [address] [place] [address] 08/09/17 Bry Echevarria MD [address] [place] [address] 08/09/17 Casey Berry II, DO 08/09/17 Shruti Vergara RN RN Registered Nurse 08/27/20 documented as of this encounter Additional Source Comments PLEASE NOTE: Replies to this message will not be received.[facility] and [facility]
--- OUTSIDE RECORDS SUMMARY | 2023-11-25 12:05 | XMS_ITS | Encounter Summary ---
Author Name Unknown Organization [employer] Address [address] [place] [address] Care Team Providers Care Aws Consultant Name Role Phone Jamal CARLISLE DO, Robert William Primary Care Provide r Unavailable Desiree Patrick MD Unavailable Farrah Nicole APRN,SPINNER OPERATOR Unavailable Bry Echevarria MD Unavailable Jamal CARLISLE DO, Robert William Unavailable Unav Stephani Diaz MD Primary Care Provider Shruti Vergara RN Unavailable Unavailable Bianka Loera CNP Primary Care Provider Desiree Patrick MD Primary Care P rovider Encounter Details Date Type Department Care Team (Late st Contact Info) Description 07/01/2017 Historical Conversion [facility] Family Medicine [address], [place] [phone] Bry Echevarria MD [address] [place] [address] Social History Tobacco Use Types [...] ap pointment with the anticoagulation clinic in [facility] on July 09, 2017.Follow[facility] [place] [facility]. The medicine list was reconciled. History of Present Illness Mr Carroll is a 71-year-old white male who comes to my on-call internal medicine clinic today forfollow-up of her recent hospitalization. His primary care physician is Dr. Berry. The patient was hospitalized in [place] last week and he underwent a cardioversion with the dofetilide. He is now onthat medication twice a day. His INR was slightly elevated at 3.2 when he was up in [place]. He was told to come in today for an INR check. He has not had any problems with bleeding. We did check his anticoagulation and his INR was therapeutic at 2.8. He will follow-up with the anticoagulation clinic in [facility] in 8 days and he will have [...] in atrial fibrillation.He is following up with [place] cardiology in 1 month. Allergies 1. Penicillins 2. Sulfa Drugs Vitals Vital Signs Recorded: [id number] 02:41PM Systolic 136, LUE, Sitting Diastolic 70, [...] Results/Data Results, Free Text - [facility]: is therapeutic at 2.8. Signatures Electronically signed by : Bry Echevarria M.D.; Jul 01 2017 3:31PM ASTROCHEMIST (Author) documented in this encounter Plan of Treatment Not on file documented as of this encounter Visit Diagnoses Not on filedocumented in this encounter Care Teams Aws Consultant Relationship Specialty Start Date End Date Casey Berry II, DO PCP - General 11/22/06 08/17/19 Stephani Aleman MD PCP - General Family Medicine 08/18/19 09/16/20 Bianka Loera, LENDING CONSULTANT [address] [place] [phone] PCP - General Nurse Practitioner Family 09/17/20 712/31 Desiree Patrick MD [address] [place] [address] PCP - General Electrophysiology 02/23/22 03/09/22 Desiree Patrick MD [address] [place] [address] 08/09/17 Farrah Nicole APRN,[facility] [address] [place] [address] 08/09/17 Bry cEhevarria MD [address] [place] [address] [place] [phone] 08/09/17 Casey Berry II, DO 08/09/17 Shruti Vergara, RN RN Registered Nurse 08/27/20 documented as of this encounter Additional Source Comments PLEASE NOTE: Replies to this message will not be received.[facility] and [facility]
--- OUTSIDE RECORDS SUMMARY | 2023-11-25 12:05 | XMS_ITS | Encounter Summary ---
Author Name Unknown Organization [employer] Address [address] [place] [address] Care Team Providers Care Operation Agent Name Role Phone Jamal CARLISLE DO, Robert William Primary Care Provide r Unavailable Desiree Patrick MD Unavailable Farrah Nicole APRN,QUARTZ MINER BLASTING Unavailable [phone] Bry Echevarria MD Unavailable Jamal CARLISLE DO, Robert William Unavailable Unav Stephani Diaz MD Primary Care Provider Shruti Vergara RN Unavailable Unavailable Bianka Loera CNP Primary Care Provider [phone] Desiree Patrick MD Primary Care P rovider Encounter Details Date Type Department Care Team (Late st Contact Info) Description 07/22/2018 Historical Conversion [facility] Family Medicine [address] [place] [address] Moon Maloney MD Social History Tobacco Use [...] Comments Blood Pressure 120/58 07/22/2018 12:00 AM CONCRETE HOPPER OPERATOR Pulse - - Temperature - - Respiratory Rate - - Oxygen Saturation - - Inhaled Oxygen Concentration - - Weight 93.8 kg (206 lb 12.7 oz) 019 12:00 AM CONCRETE HOPPER OPERATOR Height - - Body Mass Index 27.28 06/20/2018 8:23 AM CONCRETE HOPPER OPERATOR documented in this encounter Functional Status [...] on filedocumented in this encounter Care Teams Operation Agent Relationship Specialty Start Date End Date Casey Berry II, DO PCP - General 11/22/06 08/17/19 Stephani Aleman MD PCP - General Family Medicine 08/18/19 09/16/20 Bianka Loera CNP [address] [facility] [place] [phone] PCP - General Nurse Practitioner Family 09/17/2001/10 [place] [address] [place] [phone] PCP - General Electrophysiology 02/23/22 03/09/22 Desiree Patrick MD [address] [place] [address] 08/09/17 Farrah Nicole APRN,QUARTZ MINER BLASTING [address] [place] [address] 08/09/17 Bry Echevarria MD [address] [place] [address] 08/09/17 Casey Berry II, DO 08/09/17 Shruti Vergara RN RN Registered Nurse 08/27/20 documented as of this encounter Additional Source Comments PLEASE NOTE: Replies to this message will not be received.[facility] and [facility]
--- OUTSIDE RECORDS SUMMARY | 2023-11-25 12:06 | XMS_ITS | Encounter Summary ---
Author Name Unknown Organization [employer] Address [address] [place] [address] Care Team Providers Care Auditor Appraiser Name Role Phone Jamal CARLISLE DO, Robert William Primary Care Provide r Unavailable Desiree Patrick MD Unavailable Farrah Nicole APRN,BARREL WASHER Unavailable Bry Echevarria MD Unavailable Jamal CARLISLE DO, Robert William Unavailable Unav Stephani Diaz MD Primary Care Provider Shruti Vergara RN Unavailable Unavailable Bianka Loera CNP Primary Care Provider Desiree Patrick MD Primary Care P rovider Encounter Details Date Type Department Care Team (Late st Contact Info) Description 02/11/[address] [facility] Family Medicine [address] [place] [address] Moon Maloney MD Social History Tobacco Use [...] on filedocumented in this encounter Care Teams Auditor Appraiser Relationship Specialty Start Date End Date Casey Berry II, DO PCP - General 11/22/06 08/17/19 Stephani Aleman MD PCP - General Family Medicine 08/18/19 09/16/20 Bianka Loera CNP [address] [place] [address] 2 [place] [phone] PCP - General Nurse Practitioner Family 09/17/2001/10 [place] [address] [place] [address] PCP - General Electrophysiology 02/23/22 03/09/22 Desiree Patrick, MD [address] [place] [address] 08/09/17 Farrah Nicole APRN,[facility] [address] [place] [address] 08/09/17 Bry Echevarria MD [address] [place], [place] [address] [address] 08/09/17 Casey Berry II, DO 08/09/17 Shruti Vergara RN RN Registered Nurse 08/27/20 documented as of this encounter Additional Source Comments PLEASE NOTE: Replies to this message will not be received.[facility] and [facility]
--- OUTSIDE RECORDS SUMMARY | 2023-11-25 12:06 | XMS_ITS | Encounter Summary ---
Author Name Unknown Organization [facility] Address [address] [place] [address] Care Team Providers Care Car Designer Name Role Phone Jamal CARLISLE DO, Robert William Primary Care Provide r Unavailable Desiree Patrick MD Unavailable Farrah Nicole APRN,TRAFFIC WORKER Unavailable Bry Echevarria MD Unavailable [phone] Jamal CARLISLE DO, Robert William Unavailable Unav Stephani Diaz MD Primary Care Provider Shruti Vergara RN Unavailable Unavailable Bianka Loera CNP Primary Care Provider [phone] Desiree Patrick MD Primary Care P rovider Encounter Details Date Type Department Care Team (Late st Contact Info) Description 03/10/[address] [facility] Family Medicine [address] [place] [address] Casey Berry II, DO Social History Tobacco [...] on filedocumented in this encounter Care Teams Car Designer Relationship Specialty Start Date End Date Casey Berry II, DO PCP - General 11/22/06 08/17/19 Stephani Aleman MD PCP - General Family Medicine 08/18/19 09/16/20 Bianka Loera CNP [address] [place] [address] 2 [place] [phone] PCP - General Nurse Practitioner Family 09/17/2001/10 [place] [address] [place] [address] PCP - General Electrophysiology 02/23/22 03/09/22 Desiree Patrick, MD [address] [place] [address] 08/09/17 Farrah Nicole APRN,[facility] [address] [place] [address] 08/09/17 Bry Echevarria MD [address] [place], [place] [address] [address] 08/09/17 Casey Berry II, DO 08/09/17 Shruti Vergara RN RN Registered Nurse 08/27/20 documented as of this encounter Additional Source Comments PLEASE NOTE: Replies to this message will not be received.[facility] and [facility]
--- OUTSIDE RECORDS SUMMARY | 2023-11-25 12:06 | XMS_ITS | Encounter Summary ---
Author Name Unknown Organization [employer] Address [address] [place] [address] Care Team Providers Care Senior Writer Name Role Phone Jamal CARLISLE DO, Robert William Primary Care Provide r Unavailable Desiree Patrick MD Unavailable Farrah Nicole APRN,FIELD ENUMERATOR Unavailable Bry Echevarria MD Unavailable [phone] Jamal CARLISLE DO, Robert William Unavailable Unav Stephani Diaz MD Primary Care Provider Shruti Vergara RN Unavailable Unavailable Bianka Loera CNP Primary Care Provider [phone] Desiree Patrick MD Primary Care P rovider Encounter Details Date Type Department Care Team (Late st Contact Info) Description 10/21/2016 Historical Conversion [facility] Family Medicine [address] [place] [address] Social History Tobacco Use Types Packs/Day Years [...] on filedocumented in this encounter Care Teams Senior Writer Relationship Specialty Start Date End Date Casey Berry II, DO PCP - General 11/22/06 08/17/19 Stephani Aleman MD PCP - General Family Medicine 08/18/19 09/16/20 Bianka Loera CNP [address] [place] [phone] PCP - General Nurse Practitioner Family 09/17/2001/10 Desiree Patrick MD [address] [place] [address] PCP - General Electrophysiology 02/23/22 03/09/22 Desiree Patrick MD [address] [facility] [place] [address] 08/09/17 Farrah Nicole APRN,FIELD ENUMERATOR [address] [place] [address] 08/09/17 Bry Echevarria MD [address] [place] [address] [place] [address] 08/09/17 Casey Berry II, DO 08/09/17 Shruti Vergara RN RN Registered Nurse 08/27/20 documented as of this encounter Additional Source Comments PLEASE NOTE: Replies to this message will not be received.[facility] and [facility]
--- OUTSIDE RECORDS SUMMARY | 2023-11-25 12:06 | XMS_ITS | Encounter Summary ---
Author Name Unknown Organization [employer] Address [address] [place] [address] Care Team Providers Care Injury Prevention Coordinator Name Role Phone Jamal CARLISLE DO, Robert William Primary Care Provide r Unavailable Desiree Patrick MD Unavailable Farrah Nicole APRN,C[employer] Unavailable [phone] Bry Echevarria MD Unavailable Jamal CARLISLE DO, Robert William Unavailable Unav Stephani Diaz MD Primary Care Provider Shruti Vergara RN Unavailable Unavailable Bianka Loera CNP Primary Care Provider [phone] Desiree Patrick MD Primary Care P rovider Encounter Details Date Type Department Care Team (Late st Contact Info) Description 10/17/2016 Historical Conversion [facility] Family Medicine [address] [place] [address] Social History Tobacco Use Types Packs/Day Years [...] do you have serious difficulty hearing? Yes-slightly [facility] 10/17/2016 Are you blind or do you [...] as of this encounter Nursing Notes * [facility] GENER[facility]PROVID[facility] - 10/17/2016 12:00 AM CDT Rohan presented to Urgent Care with complaint of feeling like his heart is racing, he can feel it pounding and a tighness in his chest occurs when this happens. He was seen at [facility] 10 days ago for an episode similar. [...] to be evaluatedin the Emergency Room at [facility]. Patient and his elected to go by private car with patients driving. Electronically signed by:Tammy Coronado RN Oct 17 2016 2:09PM DEBEADER AMENDMENTS: 1. Patient declines shortness of breath, radiating neck pain, shoulderblade pain or sternal pain. Electronically signed by:Tammy Coronado RN Oct 17 2016 2:14PM DEBEADER documented in this encounter Plan of Treatment Not on file documented as of this encounter Visit Diagnoses Not on filedocumented in this encounter Care Teams Injury Prevention Coordinator Relationship Specialty Start Date End Date Casey Berry II, DO PCP - General 11/22/06 08/17/19 Stephani Aleman MD PCP - General Family Medicine 08/18/19 09/16/20 Bianak Loera CNP [address] [place] [address] PCP - General Nurse Practitioner Family 09/17/2001/10 Desiree Patrick MD [address] [place] [address] PCP - General Electrophysiology 02/23/22 03/09/22 Desiree Patrick MD [address] [place] [address] 08/09/17 Farrah Nicole APRN,CASHIER PARKING [address] [place] [address] 08/09/17 Bry Echevarria MD [address] [place] [phone] 08/09/17 Casey Berry II, DO 08/09/17 Shruti Vergara, RN RN Registered Nurse 08/27/20 documented as of this encounter Additional Source Comments PLEASE NOTE: Replies to this message will not be received.[facility] and [facility]
--- OUTSIDE RECORDS SUMMARY | 2023-11-25 12:06 | XMS_ITS | Encounter Summary ---
Author Name Unknown Organization [employer] Address [address] [place] [address] Care Team Providers Care Continuous Improvement Manager Name Role Phone Jamal CARLISLE DO, Robert William Primary Care Provide r Unavailable Desiree Patrick MD Unavailable Farrah Nicole APRN,LYMPHEDEMA THERAPIST Unavailable [phone] Bry Echevarria MD Unavailable [phone] Jamal CARLISLE DO, Robert William Unavailable Unav Stephani Diaz MD Primary Care Provider [phone] Shruti Vergara RN Unavailable Unavailable Bianka Loera CNP Primary Care Provider [phone] Desiree Patrick MD Primary Care P rovider Encounter Details Date Type Department Care Team (Late st Contact Info) Description 06/24/2016 Historical Conversion [facility] Family Medicine [address] [place] [address] Casey Berry II, DO Social History Tobacco [...] Comments Blood Pressure 115/76 06/24/2016 12:00 AM RAIL WASHER Pulse - - Temperature - - Respiratory Rate - - Oxygen Saturation - - Inhaled Oxygen Concentration - - Weight 91.5 kg (201 lb 11.5 oz) 016 12:00 AM RAIL WASHER Height - - Body Mass Index 26.61 [...] on filedocumented in this encounter Care Teams Continuous Improvement Manager Relationship Specialty Start Date End Date Casey Berry II, DO PCP - General 11/22/06 08/17/19 Stephani Aleman MD PCP - General Family Medicine 08/18/19 09/16/20 Bianka Loera CNP [address] [place] [phone] PCP - General Nurse Practitioner Family 09/17/2001/10 [place] [address] [place] [address] PCP - General Electrophysiology 02/23/22 03/09/22 Desiree Patrick MD [address] [place] [address] 08/09/17 Farrah Nicole APRN,[facility] [address] [place] [place] [address] 08/09/17 Bry Echevarria MD [facility] [place] [address] 08/09/17 Casey Berry II, DO 08/09/17 Shruti Vergara RN RN Registered Nurse 08/27/20 documented as of this encounter Additional Source Comments PLEASE NOTE: Replies to this message will not be received.[facility] and [facility]
--- OUTSIDE RECORDS SUMMARY | 2023-11-25 12:06 | XMS_ITS | Encounter Summary ---
Author Name Unknown Organization [employer] Address [address] [place] [address] Care Team Providers Care Siebel Solution Architect Name Role Phone Jamal CARLISLE DO, Robert William Primary Care Provide r Unavailable Desiree Patrick MD Unavailable Farrah Nicole APRN,TRANSFERRER Unavailable Bry Echevarria MD Unavailable Jamal CARLISLE DO, Robert William Unavailable Unav Stephani Diaz MD Primary Care Provider [phone] Shruti Vergara RN Unavailable Unavailable Bianka Loera CNP Primary Care Provider Desiree Patrick MD Primary Care P rovider Encounter Details Date Type Department Care Team (Late st Contact Info) Description 10/17/2016 Historical Conversion [facility] Family Medicine [address] [place] [address] Social History Tobacco Use Types Packs/Day Years [...] do you have serious difficulty hearing? Yes-slightly EKLUTNA 10/17/2016 Are you blind or do you [...] on filedocumented in this encounter Care Teams Siebel Solution Architect Relationship Specialty Start Date End Date Casey Berry II, DO PCP - General 11/22/06 08/17/19 Stephani Aleman MD PCP - General Family Medicine 08/18/19 09/16/20 Bianka Loera CNP [address] [facility] 2 [place] [phone] PCP - General Nurse Practitioner Family 09/17/2001/10 [place] [address] [place] [address] PCP - General Electrophysiology 02/23/22 03/09/22 Desiree Patrick MD [address] [place] [address] 08/09/17 Farrah Nicole APRN,[facility] [address] [place] [address] 08/09/17 Bry Echevarria MD [address] [place], [place] [address] [address] 08/09/17 Casey Berry II, DO 08/09/17 Shruti Vergara RN RN Registered Nurse 08/27/20 documented as of this encounter Additional Source Comments PLEASE NOTE: Replies to this message will not be received.[facility] and [facility]
--- OUTSIDE RECORDS SUMMARY | 2023-11-25 12:06 | XMS_ITS | Encounter Summary ---
Author Name Unknown Organization [employer] Address [address] [place] [address] Care Team Providers Care Sr. Operations Manager Name Role Phone Jamal CARLISLE DO, Robert William Primary Care Provide r Unavailable Desiree Patrick MD Unavailable Farrah Nicole APRN,SHEARING SHED WORKER Unavailable Bry Echevarria MD Unavailable Jamal CARLISLE DO, Robert William Unavailable Unav Stephani Diaz MD Primary Care Provider [phone] Shruti Vergara RN Unavailable Unavailable Bianka Loera CNP Primary Care Provider Desiree Patrick MD Primary Care P rovider Encounter Details Date Type Department Care Team (Late st Contact Info) Description 09/02/2016 Historical Conversion [facility] [facility] Family Medicine [address] [place] [address] Casey El II, DO Social History Tobacco Use Types [...] Comments Blood Pressure 151/81 09/02/2016 12:00 AM EMERGENCY MEDICINE PHYSICIAN Pulse - - Temperature - - Respiratory Rate - - Oxygen Saturation - - Inhaled Oxygen Concentration - - Weight 93.5 kg (206 lb 2.1 oz) 09/02/2016 12:00 AM EMERGENCY MEDICINE PHYSICIAN Height 185.1 cm (6' 0.87) 09/02/2016 12:00 AM Saúl WARE Body Mass Index 27.29 09/02/2016 12:00 AM EMERGENCY MEDICINE PHYSICIAN documented in this encounter Functional Status Functional [...] Recorded 3. Flomax 0.4 MG CPCR; Therapy: (Recorded:30Mar2017) to Recorded 4. Lupron Depot (3-Month) 22.5 [...] as needed; Therapy: 10Sep2014 to Requested for: [id number] Recorded 7. Metoprolol Tartrate 50 MG Oral Tablet; TAKE 1 TABLET TWICE DAILY; Therapy: (Recorded:21Oct2016) to Recorded 8. Tylenol Extra Strength 500 MG Oral Tablet; Therapy: (Recorded:89Ber5505) to Recorded 9. Warfarin Sodium 5 MG Oral Tablet; Take as directed by [facility]; Therapy: 11Raq3755 to (Evaluate:70Ywu2784) Requested for: 59Kke9050; Last Rx:00Yvt1996 Ordered Allergies 1. Penicillins 2. Sulfa Drugs Vitals Vital Signs Recorded: 06Apr2017 09:54AM Systolic 116, RUE, Sitting Diastolic 82, [...] Casey El DO; Apr 16 2017 8:13AM EMERGENCY MEDICINE PHYSICIAN * Casey El II, DO - 11/30/2016 [...] healthy by no longer smoking.; Status:Complete; Done: 11Yhs0480 Counseling Total time of encounter was 20 [...] first. At this point in time, the Telephone Maintainer has not stated that he a risk [...] 1. Digoxin 125 MCG Oral Tablet; Therapy: (Recorded:08Kyv8682) to Recorded 2. DilTIAZem CD 300 MG Oral Capsule Extended Release 24 Hour; Therapy: (Recorded:21Oct2016) to Recorded 3. Metoclopramide HCl - 5 MG Oral Tablet; TAKE 1 TABLET as needed; Therapy: 10Sep2014 to Requested for: 21Lwr6833 Recorded 4. Metoprolol Tartrate 50 MG Oral Tablet; TAKE 1 TABLET TWICE DAILY; Therapy: (Recorded:21Oct2016) to Recorded 5. Tylenol Extra Strength 500 MG Oral Tablet; Therapy: (Recorded:18Nov2015) to Recorded 6. Warfarin Sodium 5 MG Oral Tablet; Take as directed by [facility]; Therapy: 91Iwy0146 to (Evaluate:12Nov2017) Requested for: 17Nov2016 Recorded Allergies 1. Penicillins 2. Sulfa Drugs Vitals Recorded: 30Nov2016 10:12AM Systolic 121 Diastolic 83 Heart Rate 106 Respiration 20 Temperature 98 F Weight 94.2 kg BMI Calculated 27.49 BSA Calculated 2.18 O2 Saturation 97 Physical Exam Deferred. Signatures Casey El II, D.OWilliam/pj-30 Electronically signed by : Casey El DO; Dec 09 2016 1:14PM EMERGENCY MEDICINE PHYSICIAN * Casey El II, DO - 10/26/2016 12:00 AM CDT Assessment 1. Former smoker: 0 - 10 pack years (V15.82) (Z87.891) Atrial fibrillation/flutter. Plan Awaiting Holter monitor to see what is going to be done next with the Telephone Maintainer and most likely,Electrophysiology. We finally did get the results from the Holter which showed flutter and they will send him to see the Dye House Helper. Reason For Visit patient in for hospital [...] Extra Strength 500 MG Oral Tablet; Therapy: (Recorded:43Kzw3594) to Recorded 6. Warfarin Sodium 5 MG Oral Tablet; Take as directed by [facility]; Therapy: 85Egz5316 to (Evaluate:23Fwc2924) Requested for: 14Jul2016 Recorded Allergies 1. Penicillins 2. Sulfa Drugs Vitals Recorded: 93Nvj8853 10:40AM Systolic 117, RUE, Sitting Diastolic 73, [...] in tactile fremitus. Signatures Casey El II, D.OWilliam/pj-24 Electronically signed by : Casey El DO; Nov 06 2016 8:45AM EMERGENCY MEDICINE PHYSICIAN documented in this encounter H&P Notes * [...] Panel; Status:Hold For - Manual Activation; Requested for:08Kwv6036; Hemoglobin A1C; Status:Hold For - Manual Activation; Requested for:11Vpc9313; SocHx: Former smoker: 0 - 10 pack years Former Smoker: Since tobacco use can have significant health risks, you are helping yourself and others stay healthy by no longer smoking.; Status:Complete; Done: 88Pom3179 Reason For Visit H & P History [...] alcohol. 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 Colonoscopy in 2009. Pneumovax 2009. Prevnar 2015. Current Meds 1. Lisinopril 10 MG Oral Tablet; TAKE 1 TABLET BY MOUTH ONCE DAILY; Therapy: 31Pml1067 to (Evaluate:21Xwv7877) Requested for: 13Jul2016; Last Rx:13Jul2016 Ordered 2. Metoclopramide HCl - 5 MG Oral Tablet; TAKE 1 TABLET as needed; Therapy: 10Sep2014 to Requested for: 02Sep2016 Recorded 3. Metoprolol Tartrate 25 MG Oral Tablet; 1 prn a fib; Therapy: (Recorded:02Sep2016) to Requested for: 02Sep2016 Recorded 4. Tylenol Extra Strength 500 MG Oral Tablet; Therapy: (Recorded:27Bzv0907) to Recorded 5. Warfarin Sodium 5 MG Oral Tablet; Take as directed by [facility]; Therapy: 14Ymg2366 to (Evaluate:08Pyn6646) Requested for: 14Jul2016 Recorded Allergies 1. Penicillins [...] rash. /RECTAL: Done by urology. Results/Data PHQ-9 14Ynm2353 12:00AM Casey El Test Name Result Flag Reference PHQ-9 0 Alcohol & Drug Questionnaire for Adults 37Rxa3606 12:00AM Casey El Test Name Result Flag Reference Alcohol & Drug Questionnaire for Adults 3 Nurse Note Pt given heel cups by dr el. #[id number] qty 2. mquam bellhop captain Recorded as Task Date: 09/14/2016 01:01 PM, [...] if you have any questions! Cherelle Gomez [facility] #[id number] Kelly Walls - 15 Sep 2016 7:16 AM TASK REASSIGNED: Previously Assigned To Kelly Walls Michelle - 15 Sep 2016 9:00 AM TASK REASSIGNED: Previously Assigned To Casey lE per dr el- dx plantar fasciitis M72.2 thanks. mquam bellhop captain Signatures Casey El II, D.Veena/la-3 Electronically signed by : Casey El DO; Sep 11 2016 1:25PM EMERGENCY MEDICINE PHYSICIAN Electronically signed by : Casey El DO; Sep 16 2016 12:34PM EMERGENCY MEDICINE PHYSICIAN documented in this encounter Plan of Treatment Not on file documented as of this encounter Visit Diagnoses Not on filedocumented in this encounter Care Teams Sr. Operations Manager Relationship Specialty Start Date End Date Casey El II, DO PCP - General 11/22/06 08/17/19 Stephani Aleman MD PCP - General Family Medicine 08/18/19 09/16/20 Bianka Loera COSTUME SPECIALIST [address] [place] [address] 2 [place] [phone] PCP - General Nurse Practitioner Family 09/17/20 7/2 12/31 Desiree Patrick MD [address] [place] [address] PCP - General Electrophysiology 02/23/22 03/09/22 Desiree Patrick MD [address] [place] [address] 08/09/17 Farrah Nicole APRN,SHEARING SHED WORKER [address] [place] [address] 08/09/17 Bry Echevarria MD [address] [place] [address] 08/09/17 Casey El II, DO 08/09/17 Shruti Vergara, RN RN Registered Nurse 08/27/20 documented as of this encounter Additional Source Comments PLEASE NOTE: Replies to this message will not be received.[facility] and [facility]
--- OUTSIDE RECORDS SUMMARY | 2023-11-25 12:06 | XMS_ITS | Encounter Summary ---
Author Name Unknown Organization [employer] Address [address] [place] [address] Care Team Providers Care Blow Pit Helper Name Role Phone Jamal CARLISLE DO, Robert William Primary Care Provide r Unavailable Desiree Patrick MD Unavailable Farrah Nicole APRN,FINANCIAL AID OFFICER Unavailable Bry Echevarria MD Unavailable Jamal CARLISLE DO, Robert William Unavailable Unav Stephani Diaz MD Primary Care Provider Shruti Vergara RN Unavailable Unavailable Bianka Loera CNP Primary Care Provider [phone] Desiree Patrick MD Primary Care P rovider Encounter Details Date Type Department Care Team (Late st Contact Info) Description 11/06/2016 Historical Conversion [facility] Family Medicine [address] [place] [address] Moon Maloney MD Social History Tobacco Use [...] on filedocumented in this encounter Care Teams Blow Pit Helper Relationship Specialty Start Date End Date Casey Berry II, DO PCP - General 11/22/06 08/17/19 Stephani Aleman MD PCP - General Family Medicine 08/18/19 09/16/20 Bianka Loera CNP [address] [place] [address] 2 [place] [phone] PCP - General Nurse Practitioner Family 09/17/2001/10 [place] [address] [place] [address] PCP - General Electrophysiology 02/23/22 03/09/22 Desiree Patrick MD [address] [place] [address] 08/09/17 Farrah Nicole APRN,FINANCIAL AID OFFICER [address] [place] [address] 08/09/17 Bry Echevarria MD [facility] [place] [address] 08/09/17 Casey Berry II, DO 08/09/17 Shruti Vergara RN RN Registered Nurse 08/27/20 documented as of this encounter Additional Source Comments PLEASE NOTE: Replies to this message will not be received.[facility] and [facility]
--- OUTSIDE RECORDS SUMMARY | 2023-11-25 12:06 | XMS_ITS | Encounter Summary ---
Author Name Unknown Organization [employer] Address [address] [place] [address] Care Team Providers Care C Java Developer Name Role Phone Jamal CARLISLE DO, Robert William Primary Care Provide r Unavailable Desiree Patrick MD Unavailable Farrah Nicole APRN,ELECTRIC REFRIGERATOR SERVICER Unavailable Bry Echevarria MD Unavailable Jamal CARLISLE DO, Robert William Unavailable Unav Stephani Diaz MD Primary Care Provider Shruti Vergara RN Unavailable Unavailable Bianka Loera CNP Primary Care Provider [phone] Desiree Patrick MD Primary Care P rovider Encounter Details Date Type Department Care Team (Late st Contact Info) Description 12/31/2016 Historical Conversion [facility] Family [facility] [address] [facility] [place] [address] Desiree Rubi PAC [address] [place] [address] Social History Tobacco Use Types Packs/Day Years Used Date Smoking Tobacco: Former Cigarettes 1 18 1 961 - 1978 Alcohol Use Standard Drinks/Week Comments Yes [...] CST UROLOGY CRISTIAN BLEDSOE : 1945 HX: [id number] DOS: 08/31/2017 HISTORY OF PRESENT ILLNESS: Anurag is a 71-year-old gentleman who presents to the Urology clinic today. He previously had rubber nodularity on both sides of the prostate. He had a PSA velocitychange and his PCA3 test came back positive. A biopsy October 2016 showed a [place] 6 prostate cancerat the left base of the prostate involving 2% of the specimen. He also had [place] 7 cancer at the left mid-prostate involving 5% of the tissue, the right mid-prostate had Curt 7 cancer again involving 20% of the [...] 1. Patient has adenocarcinoma of the prostate Curt 7 disease. He is status post EBRT [...] by:Desiree Rubi PA-C Sep 02 2017 5:01PM FLOATLIGHT POWDER MIXER * Desiree Rubi - 03/30/2017 12:00 AM CDT UROLOGY CRISTIAN BLEDSOE : 1945 HX: [id number] DOS: 03/30/2017 HISTORY OF PRESENT ILLNESS: 71-year-old [...] tissue. The right mid prostate he had [place] 7 cancer involving 20% of the tissue in that area. [facility] [place] 7 cancer involving 5% of the specimen. [...] treatment. He has adenocarcinoma of the prostate. Curt 7 cancer. He had beenon Lupron for [...] Mare Rubi P.A.-C./- cc: Dr. Moon Maloney [facility] Radha Winslow [facility] Dr. Casey Berry [facility] Radha Electronically signed by:Desiree Rubi PA-C Apr 02 2017 1:20PM FLOATLIGHT POWDER MIXER * Desiree Rubi - 12/31/2016 12:00 AM CDT UROLOGY CRISTIAN BLEDSOE : 1945 HX: [id number] DOS: 12/31/2016 HISTORY OF PRESENT ILLNESS: 71-year-old male who presents to the Urology clinic today. Hehad a velocity change with his PSA. On his prostate exam he had a rubbery nodularity on both sides.It was a symmetrical prostate. His PSA was monitored for a little while. In August he had a GRAPHITE PAN DRIER TENDER 3test and that came back positive. He was brought back for a prostate biopsy October 23, 2016. His pathology showed Curt 6 cancer at the left base of the prostate involving 2% of the specimen. He hadGleason 7 cancer at the left mid prostate involving less than 5% of the tissue. The right mid prostate he had a [place] 7 cancer involving 20% of the specimen [...] Lupron. UA today is normal. ASSESSMENT: 1. Curt 7 adenocarcinoma of the prostate. He will [...] possible Lupron injection but it depends on Dr.Gemar how long she wants him on the Lupron. Spent 30 minutes total time with patient over 50% was counseling and coordination of care in regards to prostate cancer. Mare Rubi P.A.-C./anna 28 cc: Dr. Moon Maloney [facility] Radha Winslow [facility] Dr. Casey Berry [facility] Radha Electronically signed by:Desiree Rubi PA-C Jan 06 2017 4:31PM FLOATLIGHT POWDER MIXER Author documented in this encounter Plan of Treatment Not on file documented as of this encounter Visit Diagnoses Not on filedocumented in this encounter Care Teams C Java Developer Relationship Specialty Start Date End Date Casey Berry II, DO PCP - General 11/22/06 08/17/19 Stephani Aleman MD PCP - General Family Medicine 08/18/19 09/16/20 Bianka Loera EDUCATIONAL RESOURCE COORDINATOR [address] [place] [phone] PCP - General Nurse Practitioner Family 09/17/20 712/31 Desiree Patrick MD [address] [place] [address] PCP - General Electrophysiology 02/23/22 03/09/22 Desiree Patrick MD [address] [place] [address] 08/09/17 Farrah Nicole APRN,ELECTRIC REFRIGERATOR SERVICER [address] [place] [address] 08/09/17 Bry Echevarria MD [address] [place] [address] 08/09/17 Casey Berry II, DO 08/09/17 Shruti Vergara RN RN Registered Nurse 08/27/20 documented as of this encounter Additional Source Comments PLEASE NOTE: Replies to this message will not be received.[facility] and [facility]
--- OUTSIDE RECORDS SUMMARY | 2023-11-25 12:06 | XMS_ITS | Encounter Summary ---
Author Name Unknown Organization [facility] Address [address] [place] [address] Care Team Providers Care Line Department Supervisor Name Role Phone Jamal CARLISLE DO, Robert William Primary Care Provide r Unavailable Desiree Patrick MD Unavailable Farrah Nicole APRN,BANQUET SERVER Unavailable Bry Echevarria MD Unavailable Jamal CARLISLE DO, Robert William Unavailable Unav Stephani Diaz MD Primary Care Provider [phone] Shruti Vergara RN Unavailable Unavailable Bianka Loera CNP Primary Care Provider Desiree Patrick MD Primary Care P rovider Encounter Details Date Type Department Care Team (Late st Contact Info) Description 02/03/2017 Historical Conversion [facility] [address] [place] [id number] Social History Tobacco Use Types Packs/Day Years [...] as of this encounter Procedure Notes * [facility] 12:00 AM CDTAssociated Order(s): ANTICOAGULATION Anticoagulation Clinic [facility] Name: CRISTIAN BLEDSOE : 1945 DOS: 01/05/2018 [...] by:Tiffani Carrero RN Jan 05 2018 12:21PM PAPERHANGER APPRENTICE * [facility] 12/21/2017 12:00 AM CDTAssociated Order(s): ANTICOAGULATION Anticoagulation Clinic [facility] Name: CRISTIAN BLEDSOE : 1945 DOS: 12/21/2017 [...] by:Tiffani Carrero RN Dec 21 2017 8:31AM PAPERHANGER APPRENTICE * [facility], GENER[facility]PROVID[facility] - 11/24/2017 12:00 AM CDTAssociated Order(s): ANTICOAGULATION Anticoagulation [facility] Name: CRISTIAN BLEDSOE : 1945 DOS: 11/24/2017 [...] by:Tiffani Carrero RN Nov 24 2017 2:41PM PAPERHANGER APPRENTICE * [facility] - 10/27/2017 12:00 AM CDTAssociated Order(s): ANTICOAGULATION Anticoagulation Clinic [facility] Name: CRISTIAN BLEDSOE : 1945 DOS: 10/27/2017 Cristian is a patient of Dr. Berry. He is here today for anticoagulation assessment and INR check for adiagnosis of atrial fibrillation. Patient states that he has not been feeling well and has been suffering with spinal stenosis. He reports that he has been taking soma for a muscle relaxer. He also reports that his phlebotomy instructor has changed his medications. Patient stales that he is no longer takingany rate control medications. INR tested today is therapeutic at 2.0 with the recommended range of 2.0 to 3.0. He will continue Coumadin at 5 mg daily with an INR recheck in one month, sooner for anychanges. Patient verbalizes understanding. Electronically signed by:Tiffani Carrero RN Oct 28 2017 7:02AM PAPERHANGER APPRENTICE * [facility] 09/29/2017 12:00 AM CDTAssociated Order(s): ANTICOAGULATION Anticoagulation Clinic [facility] Name: CRISTIAN BLEDSOE : 1945 DOS: 09/29/2017 Cristian is a patient of Dr. Berry. He is here today for anticoagulation assessment and INR check for adiagnosis of atrial fibrillation. Patient states that he is feeling well. He denies any changes in medication. Patient reports that he continues to experience bradycardia and is working with his phlebotomy instructor to manage his beta blockers slowly. INR tested today is therapeutic at 2.1 with the recommended range of 2.0 to 3.0. He will continue Coumadin at 5 mg daily with an INR recheck in one month, sooner for any changes. Patient verbalizes understanding. Electronically signed by:Tiffani Carrero RN Sep 29 2017 2:09PM PAPERHANGER APPRENTICE * [facility], MICHELLEPROVIDER - 09/15/2017 12:00 AM CSTAssociated Order(s): ANTICOAGULATION Anticoagulation Clinic [facility] Name: CRISTIAN BLEDSOE : 1945 DOS: 09/15/2017 [...] that Dr. Berry will converse with his phlebotomy instructor to see if they should change some of his heart medications. Patient will call [facility] nurse with any updates. INR tested today is 1.9 with the recommended range of 2.0 to 3.0. He will adjust Coumadin to 5 mg daily with an INR recheck in two weeks. Patient verbalizes understanding. Electronically signed by:Tiffani Carrero RN Sep 15 2017 11:42AM PAPERHANGER APPRENTICE * [facility] - 08/18/2017 12:00 AM CSTAssociated Order(s): ANTICOAGULATION Anticoagulation Clinic [facility] Name: CRISTIAN BLEDSOE : 1945 DOS: 08/18/2017 [...] by:Tiffani Carrero RN Aug 18 2017 6:00PM PAPERHANGER APPRENTICE * [facility] - 07/09/2017 12:00 AM CSTAssociated Order(s): ANTICOAGULATION Anticoagulation Clinic [facility] Name: CRISTIAN BLEDSOE : 1945 DOS: 07/09/2017 [...] by:Tiffani Carrero RN Jul 09 2017 11:28AM PAPERHANGER APPRENTICE * [facility] - 06/16/2017 12:00 AM CSTAssociated Order(s): ANTICOAGULATION Anticoagulation Clinic [facility] Name: CRISTIAN BLEDSOE : 1945 DOS: 06/16/2017 This is a patient of Dr. Berry. He is here today for an anticoagulation assessment and INR check fora diagnosis of atrial fibrillation. He states that he has been feeling well. Patient denies any recent medication changes. He reports that he needs weekly INR checks per Dr. Patrick at [facility] in preparation for taking dofetilide and [...] by:Tiffani Carrero RN Jun 16 2017 4:18PM PAPERHANGER APPRENTICE * [facility] - 06/09/2017 12:00 AM CSTAssociated Order(s): ANTICOAGULATION Anticoagulation Clinic [facility] Name: CRISTIAN BLEDSOE : 1945 DOS: 06/09/2017 This is a patient of Dr. Berry. He is here today for an anticoagulation assessment and INR check fora diagnosis of atrial fibrillation. He states that he has been feeling well. Patient denies any recent medication changes. He reports that he needs weekly INR checks per Dr. [facility] at [facility] in preparation for taking dofetilide and a [...] by:Tiffani Carrero RN Jun 09 2017 3:40PM PAPERHANGER APPRENTICE * [facility], GENER[facility]PR[facility] - 06/02/2017 12:00 AM CSTAssociated Order(s): ANTICOAGULATION Anticoagulation Clinic [facility] Name: CRISTIAN BLEDSOE : 1945 DOS: 06/02/2017 This is a patient of Dr. Berry. He is here today for an anticoagulation assessment and INR check fora diagnosis of atrial fibrillation. He states that he has been feeling well. Patient denies any recent medication changes. He reports that he will need weekly INR checks per Dr. [facility] at [facility] in preparation for taking dofetilide and a [...] by:Tiffani Carrero RN Jun 02 2017 9:39AM PAPERHANGER APPRENTICE AMENDMENTS: 1. current INR and Coumadin dosing. Electronically signed by:Tiffani Carrero RN Jun 09 2017 3:41PM PAPERHANGER APPRENTICE * [facility] - 05/26/2017 12:00 AM CSTAssociated Order(s): ANTICOAGULATION Anticoagulation Clinic [facility] Name: CRISTIAN BLEDSOE : 1945 DOS: 05/26/2017 This is a patient of Dr. Berry. He is here today for an anticoagulation assessment and INR check fora diagnosis of atrial fibrillation. He states that he has been feeling well. Patient denies any recent medication changes. He reports that he will need weekly INR checks per Dr. Patrick at [facility] in preparation for taking dofetilide and [...] by:Tiffani Carrero RN May 26 2017 9:42AM PAPERHANGER APPRENTICE * [facility] - 05/19/2017 12:00 AM CSTAssociated Order(s): ANTICOAGULATION Anticoagulation Clinic [facility] Name: CRISTIAN BLEDSOE : 1945 DOS: 05/19/2017 This is a patient of Dr. Berry. He is here today for an anticoagulation assessment and INR check fora diagnosis of atrial fibrillation. He states that he has been feeling well. Patient denies any recent medication changes. He reports that he will need weekly INR checks per Dr. Patrick at [facility] in preparation for taking dofetilide and [...] by:Tiffani Carrero RN May 19 2017 3:13PM PAPERHANGER APPRENTICE * [facility], GENERICPROVIDER - 05/14/2017 12:00 AM CDTAssociated Order(s): ANTICOAGULATION Email communication received from patient today: ALLAN Vera, RN [facility], [facility] (direct phone) [phone] Per our phone conversation of yesterday afternoon, I will be having an initiation of Tikosyn (Dofetilide) at [facility] beginning on June 21. To prepare for this, my phlebotomy instructor,Dr. Desiree Patrick, has requested INR lab reports demonstrating 4 to 5 weeks of INR levels between 2.5 and 3 prior to the initiation of Tikosyn. Would you please fax my INR lab reports for the month of May to Dr. Darnell Lundberg???s nurse, at (fax) [phone]? The phone number for Dr. Patrick is [phone]. As we discussed, I will come in for INR testing each Wednesday morning at 9:30 AM to meet this requirement. Thank you, Anurag Bledsoe Electronically signed by:Tiffani Carrero RN May 14 2017 9:46AM PAPERHANGER APPRENTICE * [facility] - 05/10/2017 12:00 AM CDTAssociated Order(s): ANTICOAGULATION Anticoagulation Clinic [facility] Name: CRISTIAN BLEDSOE : 1945 DOS: 05/10/2017 This is a patient of Dr. Berry. He is here today for an anticoagulation assessment and INR check fora diagnosis of atrial fibrillation. He states that he has been feeling well. Patient denies any recent medication changes. He reports that he will need weekly INR checks per Dr. Patrick at [facility] in preparation for taking dofetilide and [...] by:Tiffani Carrero RN May 10 2017 3:11PM PAPERHANGER APPRENTICE * [facility] - 04/06/2017 12:00 AM CDTAssociated Order(s): ANTICOAGULATION Anticoagulation Clinic [facility] Name: CRISTIAN BLEDSOE : 1945 DOS: 04/06/2017 [...] verbalized understanding. Electronically signed by:Tiffani Carrero RN Sep 26 2017 12:37PM PAPERHANGER APPRENTICE * [facility] - 03/03/2017 12:00 AM CDTAssociated Order(s): ANTICOAGULATION Anticoagulation Clinic [facility] Name: CRISTIAN BLEDSOE : 1945 DOS: 03/03/2017 [...] He will have INR checked in the [place] lab prior to his appointment with Dr. Maloney. Patient verbalized understanding. Electronically signed by:Tiffani Carrero RN Mar 03 2017 12:02PM PAPERHANGER APPRENTICE * [facility] - 02/03/2017 12:00 AM CDTAssociated Order(s): ANTICOAGULATION Anticoagulation Clinic [facility] Name: CRISTIAN BLEDSOE : 1945 DOS: 02/03/2017 [...] by:Tiffani Carrero RN Feb 03 2017 10:11AM PAPERHANGER APPRENTICE documented in this encounter Plan of Treatment [...] Results * ANTICOAGULATION (01/05/2018) Narrative Procedure Note [facility], GENERICPROVIDER - 01/05/2018 12:00 AM CDT Anticoagulation [facility] Name: CRISTIAN BLEDSOE : 1945 DOS: 01/05/2018 [...] by:Tiffani Carrero RN Jan 05 2018 12:21PM PAPERHANGER APPRENTICE [facility] OTHER * ANTICOAGULATION (12/21/2017) Narrative Procedure Note [facility] - 12/21/2017 12:00 AM CDT Anticoagulation [facility] Name: CRISTIAN BLEDSOE : 1945 DOS: 12/21/2017 [...] by:Tiffani Carrero RN Dec 21 2017 8:31AM PAPERHANGER APPRENTICE [facility] OTHER * ANTICOAGULATION (11/24/2017) Narrative Procedure Note [facility] - 11/24/2017 12:00 AM CDT Anticoagulation [facility] Name: CRISTIAN BLEDSOE : 1945 DOS: 11/24/2017 [...] by:Tiffani Carrero RN Nov 24 2017 2:41PM PAPERHANGER APPRENTICE [facility] OTHER * ANTICOAGULATION (10/27/2017) Narrative [facility] 10/27/2017 12:00 AM CDT Anticoagulation [facility] Name: CRISTIAN BLEDSOE : 1945 DOS: 10/27/2017 Cristian is a patient of Dr. Berry. He is here today for anticoagulationassessment and INR check for a diagnosis of atrial fibrillation. Patientstates that he has not been feeling well and has been suffering withspinal stenosis. He reports that he has been taking soma for a musclerelaxer. He also reports that his phlebotomy instructor has changed hismedications. Patient stales that he is no longer taking any rate controlmedications. INR tested today is therapeutic at 2.0 with the recommendedrange of 2.0 to 3.0. He will continue Coumadin at 5 mg daily with an INRrecheck in one month, sooner for any changes. Patient verbalizesunderstanding. Electronically signed by:Tiffani Carrero RN Oct 28 2017 7:02AM PAPERHANGER APPRENTICE [facility]formerly [facility] OTHER * ANTICOAGULATION (09/29/2017) Narrative [facility] - 09/29/2017 12:00 AM CDT Anticoagulation [facility] Name: CRISTIAN BLEDSOE : 1945 DOS: 09/29/2017 Cristian is a patient of Dr. Berry. He is here today for anticoagulationassessment and INR check for a diagnosis of atrial fibrillation. Patientstates that he is feeling well. He denies any changes in medication.Patient reports that he continues to experience bradycardia and is workingwith his phlebotomy instructor to manage his beta blockers slowly. INR testedtoday is therapeutic at 2.1 with the recommended range of 2.0 to 3.0. Hewill continue Coumadin at 5 mg daily with an INR recheck in one month,sooner for any changes. Patient verbalizes understanding. Electronically signed by:Tiffani Carrero RN Sep 29 2017 2:09PM PAPERHANGER APPRENTICE [facility] OTHER * ANTICOAGULATION (09/15/2017) Narrative Procedure Note [facility] - 09/15/2017 12:00 AM CST Anticoagulation Clinic [facility] Name: CRISTIAN BLEDSOE : 1945 DOS: 09/15/2017 [...] statesthat Dr. Berry will converse with his phlebotomy instructor to see if they shouldchange some of his heart medications. Patient will call [facility] nurse with anyupdates. INR tested today is 1.9 with the recommended range of 2.0 to 3.0.He will adjust Coumadin to 5 mg daily with an INR recheck in two weeks.Patient verbalizes understanding. Electronically signed by:Tiffani Carrero RN Sep 15 2017 11:42AM PAPERHANGER APPRENTICE [facility] OTHER * ANTICOAGULATION (08/18/2017) Narrative Procedure Note [facility] - 08/18/2017 12:00 AM CST Anticoagulation [facility] Name: CRISTIAN BLEDSOE : 1945 DOS: 08/18/2017 [...] by:Tiffani Carrero RN Aug 18 2017 6:00PM PAPERHANGER APPRENTICE [facility] OTHER * ANTICOAGULATION (07/09/2017) Narrative Procedure Note [facility] - 07/09/2017 12:00 AM CST Anticoagulation [facility] Name: CRISTIAN BLEDSOE : 1945 DOS: 07/09/2017 [...] by:Tiffani Carrero RN Jul 09 2017 11:28AM PAPERHANGER APPRENTICE [facility] OTHER * ANTICOAGULATION (06/16/2017) Narrative Procedure Note [facility] - 06/16/2017 12:00 AM CST Anticoagulation Clinic [facility] Name: CRISTIAN BLEDSOE : 1945 DOS: 06/16/2017 This is a patient of Dr. Berry. He is here today for an anticoagulationassessment and INR check for a diagnosis of atrial fibrillation. He statesthat he has been feeling well. Patient denies any recent medicationchanges. He reports that he needs weekly INR checks per Dr. Patrick [facility] in preparation for taking dofetilide and [...] by:Tiffani Carrero RN Jun 16 2017 4:18PM PAPERHANGER APPRENTICE [facility] OTHER * ANTICOAGULATION (06/09/2017) Narrative Procedure Note [facility] - 06/09/2017 12:00 AM CST Anticoagulation [facility] Name: CRISTIAN BLEDSOE : 1945 DOS: 06/09/2017 This is a patient of Dr. Berry. He is here today for an anticoagulationassessment and INR check for a diagnosis of atrial fibrillation. He statesthat he has been feeling well. Patient denies any recent medicationchanges. He reports that he needs weekly INR checks per Dr. Patrick [facility] in preparation for taking dofetilide and [...] by:Tiffani Carrero RN Jun 09 2017 3:40PM PAPERHANGER APPRENTICE Genericprovider [facility] OTHER * ANTICOAGULATION (06/02/2017) Narrative Procedure Note [facility] - 06/02/2017 12:00 AM CST Anticoagulation Clinic [facility] Name: CRISTIAN BELDSOE : 1945 DOS: 06/02/2017 This is a patient of Dr. Berry. He is here today for an anticoagulationassessment and INR check for a diagnosis of atrial fibrillation. He statesthat he has been feeling well. Patient denies any recent medicationchanges. He reports that he will need weekly INR checks per Dr. Valencia [facility] in preparation for taking dofetilide and [...] by:Tiffani Carrero RN Jun 02 2017 9:39AM PAPERHANGER APPRENTICE AMENDMENTS: 1. current INR and Coumadin dosing. Electronically signed by:Tiffani Carrero RN Jun 09 2017 3:41PM PAPERHANGER APPRENTICE [facility] OTHER * ANTICOAGULATION (05/26/2017) Narrative Procedure Note [facility], GENERICPROVIDER - 05/26/2017 12:00 AM CST Anticoagulation [facility] Name: CRISTIAN BLEDSOE : 1945 DOS: 05/26/2017 This is a patient of Dr. Berry. He is here today for an anticoagulationassessment and INR check for a diagnosis of atrial fibrillation. He statesthat he has been feeling well. Patient denies any recent medicationchanges. He reports that he will need weekly INR checks per Dr. Valencia [facility] in preparation for taking dofetilide and [...] 2.5 mg Wednesday and 5 mg all . He is scheduled to recheck in one week. Patient verbalizedunderstanding. INR results from today are faxed to Dr. Patrick with a note ofadjustment made today. Electronically signed by:Tiffani Carrero RN May 26 2017 9:42AM PAPERHANGER APPRENTICE [facility]pro[facility] OTHER * ANTICOAGULATION (05/19/2017) Narrative Procedure Note [facility], [facility] - 05/19/2017 12:00 AM CST Anticoagulation [facility] Name: CRISTIAN BLEDSOE : 1945 DOS: 05/19/2017 This is a patient of Dr. Berry. He is here today for an anticoagulationassessment and INR check for a diagnosis of atrial fibrillation. He statesthat he has been feeling well. Patient denies any recent medicationchanges. He reports that he will need weekly INR checks per Dr. Valencia [facility] in preparation for taking dofetilide and [...] today are faxed to Dr. Patrick with anote of adjustment made today. Electronically signed by:Tiffani Carrero RN May 19 2017 3:13PM PAPERHANGER APPRENTICE Genericprovider [facility] OTHER * ANTICOAGULATION (05/14/2017) Narrative Procedure Note [facility] - 05/14/2017 12:00 AM CDT Email communication received from patient today: ALLAN Vera, RN [facility] (direct phone) [phone] Per our phone conversation of yesterday afternoon, I will be having aninitiation of Tikosyn (Dofetilide) at [facility] beginning June 21. To prepare for this, my phlebotomy instructor, Dr. Serra, has requested INR lab reports demonstrating 4 to 5 weeks ofINR levels between 2.5 and 3 prior to the initiation of Tikosyn. Would you please fax my INR lab reports for the month of May Oneil, Dr. Patrick? s nurse, at (fax) [phone]? The phone numberfor Dr. Patrick is [phone]. As we discussed, I will come in for INR testing each Wednesday morning at9:30 AM to meet this requirement. Thank you, Anurag Philkayla Electronically signed by:Tiffani Carrero RN May 14 2017 9:46AM PAPERHANGER APPRENTICE [facility] OTHER * ANTICOAGULATION (05/10/2017) Narrative Procedure Note [facility] - 05/10/2017 12:00 AM CDT Anticoagulation [facility] Name: CRISTIAN BLEDSOE : 1945 DOS: 05/10/2017 This is a patient of Dr. Berry. He is here today for an anticoagulationassessment and INR check for a diagnosis of atrial fibrillation. He statesthat he has been feeling well. Patient denies any recent medicationchanges. He reports that he will need weekly INR checks per Dr. Valencia [facility] in preparation for taking dofetilide and [...] by:Tiffani Carrero RN May 10 2017 3:11PM PAPERHANGER APPRENTICE [facility] OTHER * ANTICOAGULATION (04/06/2017) Narrative Procedure Note [facility] - 04/06/2017 12:00 AM CDT Anticoagulation [facility] Name: CRISTIAN BLEDSOE : 1945 DOS: 04/06/2017 [...] by:Tiffani Carrero RN Apr 06 2017 12:37PM PAPERHANGER APPRENTICE [facility] OTHER * ANTICOAGULATION (03/03/2017) Narrative Procedure Note [facility] - 03/03/2017 12:00 AM CDT Anticoagulation [facility] Name: CRISTIAN BLEDSOE : 1945 DOS: 03/03/2017 [...] changes. He willhave INR checked in the [place] lab prior to his appointment with . Patient verbalized understanding. Electronically signed by:Tiffani Carrero RN Mar 03 2017 12:02PM PAPERHANGER APPRENTICE [facility] OTHER * ANTICOAGULATION (02/03/2017) Narrative Procedure Note [facility] - 02/03/2017 12:00 AM CDT Anticoagulation [facility] Name: CRISTIAN BLEDSOE : 1945 DOS: 02/03/2017 [...] by:Tiffani Carrero RN Feb 03 2017 10:11AM PAPERHANGER APPRENTICE Genericprovider [facility] OTHER documented in this encounter Visit Diagnoses Not on filedocumented in this encounter Care Teams Line Department Supervisor Relationship Specialty Start Date End Date Casey Berry II, DO PCP - General 11/22/06 08/17/19 Stephani Aleman MD PCP - General Family Medicine 08/18/19 09/16/20 Bianka Loera RESEARCH AND DEVELOPMENT CHEMIST [address] [place] [address] [address] [place] [id number] PCP - General Nurse Practitioner Family 09/17/2001/10 Desiree Patrick MD [address] [place] [address] PCP - General Electrophysiology 02/23/22 03/09/22 Desiree Patrick MD [address] [place] [address] 08/09/17 Farrah Nicole APRN,BANQUET SERVER [address] [place] [phone] 08/09/17 Bry Echevarria MD [address] [place] [phone] 08/09/17 Casey Berry II, DO 08/09/17 Shruti Vergara RN RN Registered Nurse 08/27/20 documented as of this encounter Additional Source Comments PLEASE NOTE: Replies to this message will not be received.[facility]
--- OUTSIDE RECORDS SUMMARY | 2023-11-25 12:06 | XMS_ITS | Encounter Summary ---
Author Name Unknown Organization [employer] Address [address] [place] [address] Care Team Providers Care Tinter Photograph Name Role Phone Jamal CARLISLE DO, Robert William Primary Care Provide r Unavailable Desiree Patrick MD Unavailable Farrah Nicole APRN,INSPECTOR AND TESTER Unavailable [phone] Bry Echevarria MD Unavailable [phone] Jamal CARLISLE DO, Robert William Unavailable Unav Stephani Diaz MD Primary Care Provider Shruti Vergara RN Unavailable Unavailable Bianka Loera CNP Primary Care Provider Desiree Patrick MD Primary Care P rovider Encounter Details Date Type Department Care Team (Late st Contact Info) Description 12/31/2016 Historical Conversion [facility] [address] [facility] [place] [address] Desiree Rubi PAC [address] [place] [address] Social History Tobacco Use Types [...] on filedocumented in this encounter Care Teams Tinter Photograph Relationship Specialty Start Date End Date Casey Berry II, DO PCP - General 11/22/06 08/17/19 Stephani Aleman MD PCP - General Family Medicine 08/18/19 09/16/20 Bianka Loera CNP [address] [place] [address] 2 [place] [address] PCP - General Nurse Practitioner Family 09/17/20 712/31 Desiree Patrick MD [address] [place] [address] PCP - General Electrophysiology 02/23/22 03/09/22 Desiree Patrick MD [address] [place] [address] 08/09/17 Farrah Nicole APRN,INSPECTOR AND TESTER [address] [place] [address] 08/09/17 Bry Echevarria MD [address] [place] [address] [place] [address] 08/09/17 Casey Berry II, DO 08/09/17 Shruti Vergara RN RN Registered Nurse 08/27/20 documented as of this encounter Additional Source Comments PLEASE NOTE: Replies to this message will not be received.[facility] and [facility]
--- OUTSIDE RECORDS SUMMARY | 2023-11-25 12:06 | XMS_ITS | Encounter Summary ---
Author Name Unknown Organization [employer] Address [address] [place] [address] Care Team Providers Care Wire Fence Erector Name Role Phone Jamal CARLISLE DO, Robert William Primary Care Provide r Unavailable Desiree Patrick MD Unavailable Farrah Nicole APRN,WATCH REPAIR TECHNICIAN Unavailable Bry Echevarria MD Unavailable Jamal CARLISLE DO, Robert William Unavailable Unav Stephani Diaz MD Primary Care Provider Shruti Vergara RN Unavailable Unavailable Bianka Loera CNP Primary Care Provider Desiree Patrick MD Primary Care P rovider Encounter Details Date Type Department Care Team (Late st Contact Info) Description 10/26/2016 Historical Conversion [facility] Family Medicine [address] [place] [address] Casey Berry II, DO Social History Tobacco [...] on filedocumented in this encounter Care Teams Wire Fence Erector Relationship Specialty Start Date End Date Casey Berry II, DO PCP - General 11/22/06 08/17/19 Stephani Aleman MD PCP - General Family Medicine 08/18/19 09/16/20 Bianka Loera CNP [address] [place] [address] 2 [place] [phone] PCP - General Nurse Practitioner Family 09/17/2001/10 Desiree Patrick MD [address] [place] [address] PCP - General Electrophysiology 02/23/22 03/09/22 PatrickDesiree pitts MD [address] [place] [address] 08/09/17 Farrah Nicole APRN,WATCH REPAIR TECHNICIAN [address] [place] [address] 08/09/17 Bry Echevarria MD [address] [place] [address] 08/09/17 Casey Berry II, DO 08/09/17 Shruti Vergara RN RN Registered Nurse 08/27/20 documented as of this encounter Additional Source Comments PLEASE NOTE: Replies to this message will not be received.[facility] and [facility]
--- OUTSIDE RECORDS SUMMARY | 2023-11-25 12:06 | XMS_ITS | Encounter Summary ---
Author Name Unknown Organization [employer] Address [address] [place] [address] Care Team Providers Care Singer Back Tender Name Role Phone Jamal CARLISLE DO, Robert William Primary Care Provide r Unavailable Desiree Patrick MD Unavailable Farrah Nicole APRN,RESEARCH MANAGEMENT ASSOCIATE Unavailable Bry Echevarria MD Unavailable Jamal CARLISLE DO, Robert William Unavailable Unav xiable Stephani Aleman MD Primary Care Provider Shruti Vergara RN Unavailable Unavailable Bianka Loera CNP Primary Care Provider Desiree Patrick MD Primary Care P rovider Encounter Details Date Type Department Care Team (Late st Contact Info) Description 10/09/2016 Historical Conversion [facility] Family Medicine [address] [facility] [address] Jana Aleman APRN,HARNESS FITTER [address] [place] [address] Social History Tobacco Use Types [...] this encounter Progress Notes * Jana Aleman, TRAINING DESIGNER,HARNESS FITTER - 10/09/2016 12:00 AM CDT Assessment 1. [...] like the first available appointment with [facility] He is instructed to return should his [...] Thao Phone Number to Contact Patient: : [phone] to Provider, Practice or Agency: : Either [facility] or [facility] Reason For Visit Patient in for [...] 1 TABLET BY MOUTH ONCE DAILY; Therapy: [id number] to (Evaluate:[id number]) Requested for: 13Jul2016; Last Rx:13Jul2016 Ordered 3. Metoclopramide HCl - 5 MG Oral Tablet; TAKE 1 TABLET as needed; Therapy: 10Sep2014 to Requested for: [id number] Recorded 4. Metoprolol Tartrate 25 MG Oral Tablet; 1 prn a fib; Therapy: (Recorded:[id number]) to Requested for: [id number] Recorded 5. Tylenol Extra Strength 500 MG Oral Tablet; Therapy: (Recorded:[id number]) to Recorded 6. Warfarin Sodium 5 MG Oral Tablet; Take as directed by [facility]; Therapy: [id number] to (Evaluate:[id number]) Requested for: 14Jul2016 Recorded Allergies 1. Penicillins [...] RN CNP RN,NIKKI; Oct 18 2016 1:54PM OPTOMECHANICAL TECHNICIAN Electronically signed by : Casey Berry DO; Oct 22 2016 1:20PM OPTOMECHANICAL TECHNICIAN documented in this encounter Plan of Treatment Not on file documented as of this encounter Visit Diagnoses Not on filedocumented in this encounter Care Teams Singer Back Tender Relationship Specialty Start Date End Date Casey Berry II, DO PCP - General 11/22/06 08/17/19 Stephani Aleman MD PCP - General Family Medicine 08/18/19 09/16/20 Bianka Loera CNP [address] [facility] [address] [place] [address] PCP - General Nurse Practitioner Family 09/17/20 712/31 [place] [address] [place] [address] PCP - General Electrophysiology 02/23/22 03/09/22 Desiree Patrick MD [address] [facility] [address] 08/09/17 Farrah Nicole APRN,RESEARCH MANAGEMENT ASSOCIATE [address] [place] [address] 08/09/17 Bry Echevarria MD [address] [place] [address] [place] [address] 08/09/17 Casey Berry II, DO 08/09/17 Shruti Vergara RN RN Registered Nurse 08/27/20 documented as of this encounter Additional Source Comments PLEASE NOTE: Replies to this message will not be received.[facility] and [facility]
--- OUTSIDE RECORDS SUMMARY | 2023-11-25 12:06 | XMS_ITS | Encounter Summary ---
Author Name Unknown Organization [employer] Address [address] [place] [address] Care Team Providers Care Filling Winder Name Role Phone Jamal CARLISLE DO, Robert William Primary Care Provide r Unavailable Desiree Patrick MD Unavailable Farrah Nicole APRN,NURSE GYNECOLOGY Unavailable [phone] Bry Echevarria MD Unavailable [phone] Jamal CARLISLE DO, Robert William Unavailable Unav Stephani Diaz MD Primary Care Provider Shruti Vergara RN Unavailable Unavailable Bianka Loera CNP Primary Care Provider Desiree Patrick MD Primary Care P rovider Encounter Details Date Type Department Care Team (Late st Contact Info) Description 03/30/2017 Historical Conversion [facility] Family [facility] [address] [facility] [place] [address] Desiree Rubi PAC [address] [place] [address] Social History Tobacco Use Types [...] on filedocumented in this encounter Care Teams Filling Winder Relationship Specialty Start Date End Date Casey Berry II, DO PCP - General 11/22/06 08/17/19 Stephani Aleman MD PCP - General Family Medicine 08/18/19 09/16/20 Bianka Loera CNP [address] [facility] 2 [place] [address] PCP - General Nurse Practitioner Family 09/17/20 712/31 Desiree Patrick MD [address] [place] [phone] PCP - General Electrophysiology 02/23/22 03/09/22 Desiree Patrick MD [address] [place] [address] 08/09/17 Farrah Nicole APRN,NURSE GYNECOLOGY [address] [place] [address] 08/09/17 Bry Echevarria MD [address] [place] [address] [place] [address] 08/09/17 Casey Berry II, DO 08/09/17 Shruti Vergara RN RN Registered Nurse 08/27/20 documented as of this encounter Additional Source Comments PLEASE NOTE: Replies to this message will not be received.[facility] and [facility]
--- OUTSIDE RECORDS SUMMARY | 2023-11-25 12:06 | XMS_ITS | Encounter Summary ---
Author Name Unknown Organization [employer] Address [address] [place] [address] Care Team Providers Care Substation Electrician Supervisor Name Role Phone Jamal CARLISLE DO, Robert William Primary Care Provide r Unavailable Desiree Patrick MD Unavailable Farrah Nicole APRN,POWER PRESS TENDER Unavailable [phone] Bry Echevarria MD Unavailable Jamal CARLISLE DO, Robert William Unavailable Unav Stephani Diaz MD Primary Care Provider Shruti Vergara RN Unavailable Unavailable Bianka Loera CNP Primary Care Provider [phone] Desiree Patrick MD Primary Care P rovider Encounter Details Date Type Department Care Team (Late st Contact Info) Description 12/01/2016 Historical Conversion [facility] Family Medicine [address] [place] [address] Moon Maloney MD Social History Tobacco Use [...] on filedocumented in this encounter Care Teams Substation Electrician Supervisor Relationship Specialty Start Date End Date Casey Berry II, DO PCP - General 11/22/06 08/17/19 Stephani Aleman MD PCP - General Family Medicine 08/18/19 09/16/20 Bianka Loera CNP [address] [facility] 2 [place] [phone] PCP - General Nurse Practitioner Family 09/17/2001/10 [place] [address] [place] [address] PCP - General Electrophysiology 02/23/22 03/09/22 Desiree Patrick MD [address] [place] [address] 08/09/17 Farrah Nicole APRN,POWER PRESS TENDER [address] [place] [address] 08/09/17 Bry Echevarria MD [address] [place] [address] 08/09/17 Casey Berry II, DO 08/09/17 Shruti Vergara RN RN Registered Nurse 08/27/20 documented as of this encounter Additional Source Comments PLEASE NOTE: Replies to this message will not be received.[facility]
--- OUTSIDE RECORDS SUMMARY | 2023-11-25 12:06 | XMS_ITS | Encounter Summary ---
Author Name Unknown Organization [employer] Address [address] [place] [address] Care Team Providers Care Oven Builder Name Role Phone Jamal CARLISLE DO, Robert William Primary Care Provide r Unavailable Desiree Patrick MD Unavailable Farrah Nicole APRN,WINCHER Unavailable Bry Echevarria MD Unavailable Jamal CARLISLE DO, Robert William Unavailable Unav Stephani Diaz MD Primary Care Provider Shruti Vergara RN Unavailable Unavailable Bianka Loera CNP Primary Care Provider [phone] Desiree Patrick MD Primary Care P rovider Encounter Details Date Type Department Care Team (Late st Contact Info) Description 11/30/2016 Historical Conversion [facility] Family Medicine [address] [place] [address] Casey Berry II, DO Social History Tobacco [...] on filedocumented in this encounter Care Teams Oven Builder Relationship Specialty Start Date End Date Casye Berry II, DO PCP - General 11/22/06 08/17/19 Stephani Aleman MD PCP - General Family Medicine 08/18/19 09/16/20 Bianka Loera CNP [address] [facility] 2 [place] [address] PCP - General Nurse Practitioner Family 09/17/2001/10 [place] [address] [place] [phone] PCP - General Electrophysiology 02/23/22 03/09/22 Desiree Patrick MD [address] [place] [address] 08/09/17 Farrah Nicole APRN,WINCHER [address] [place] [address] 08/09/17 Bry Echevarria MD [address] [place] [address] 08/09/17 Casey Berry II, DO 08/09/17 Shruti Vergara RN RN Registered Nurse 08/27/20 documented as of this encounter Additional Source Comments PLEASE NOTE: Replies to this message will not be received.[facility] and [facility]
--- OUTSIDE RECORDS SUMMARY | 2023-11-25 12:06 | XMS_ITS | Encounter Summary ---
Author Name Unknown Organization [employer] Address [address] [place] [address] Care Team Providers Care Vigoureux Printer Name Role Phone Jamal CARLISLE DO, Robert William Primary Care Provide r Unavailable Desiree Patrick MD Unavailable Farrah Nicole APRN,PRINTING SHOP SUPERVISOR Unavailable Bry Echevarria MD Unavailable [phone] Jamal CARLISLE DO, Robert William Unavailable Unav Stephani Diaz MD Primary Care Provider [phone] Shruti Vergara RN Unavailable Unavailable Bianka Loera CNP Primary Care Provider [phone] Desiree Patrick MD Primary Care P rovider Encounter Details Date Type Department Care Team (Late st Contact Info) Description 08/27/2016 Historical Conversion [facility] Family Medicine [address] [place] [address]. [place] [address] Moon Maloney MD Social History Tobacco Use [...] Comments Blood Pressure 175/101 08/27/2016 12:00 AM DIGITAL ACCOUNT COORDINATOR Pulse - - Temperature - - Respiratory Rate - - Oxygen Saturation - - Inhaled Oxygen Concentration - - Weight 95.7 kg (210 lb 15.7 oz) 017 12:00 AM DIGITAL ACCOUNT COORDINATOR Height - - Body Mass Index 27.84 [...] on filedocumented in this encounter Care Teams Vigoureux Printer Relationship Specialty Start Date End Date Casey Berry II, DO PCP - General 11/22/06 08/17/19 Stephani Aleman MD PCP - General Family Medicine 08/18/19 09/16/20 Bianka Loera CNP [address] [place] [address] 2 [place] [phone] PCP - General Nurse Practitioner Family 09/17/2001/10 [place] [address] [place] [address] PCP - General Electrophysiology 02/23/22 03/09/22 Desiree Patrick MD [address] [place] [address] 08/09/17 Farrah Nicole APRN,[facility] [address] [place] [address] 08/09/17 Bry Echevarria MD [address] [place], [place] [address] [address] 08/09/17 Casey Berry II, DO 08/09/17 Shruti Vergara RN RN Registered Nurse 08/27/20 documented as of this encounter Additional Source Comments PLEASE NOTE: Replies to this message will not be received.[facility] and [facility]
--- OUTSIDE RECORDS SUMMARY | 2023-11-25 12:06 | XMS_ITS | Encounter Summary ---
Author Name Unknown Organization [facility] [employer] Address [address] [place] [address] Care Team Providers Care General Manager Oracle Data Cloud Name Role Phone Jamal CARLISLE DO, Robert William Primary Care Provide r Unavailable Desiree Patrick MD Unavailable Farrah Nicole APRN,CIGARETTE AND FILTER CHIEF INSPECTOR Unavailable Bry Echevarria MD Unavailable Jamal CARLISLE DO, Robert William Unavailable Unav Stephani Diaz MD Primary Care Provider Shruti Vergara RN Unavailable Unavailable Bianka Loera CNP Primary Care Provider Desiree Patrick MD Primary Care P rovider Encounter Details Date Type Department Care Team (Late st Contact Info) Description 12/31/2016 HIM Tablet Coater [facility] [address] [address] Gil Solares MD Social History [...] ADULT WITH OR WITHOUT CONTRAST PERFORMED BY: [place] [employer] [place], [place] SITE: [place], [place] INTERPRETED BY: [facility] [place], [place] TRANSTHORACIC ECHOCARDIOGRAM REPORT REFERRING DIAGNOSIS: Paroxysmal [...] fibrillation. Note: This study was performed by [facility] [employer] [employer] [facility]. Only the interpretation wasperformed at the [facility] [place]. Electronically signed Gil Solares MD, [employer] , 04:45 P A kmg/Doc#: [id number] cc: Adult Normal Value Adult Patient Values [...] Blood pressure: 116/81 mmHg Previous study: 11/19/15 Multimedia Specialist: GRG documented in this encounter Plan of [...] - 12/31/2016 12:00 AM CDT PERFORMED BY: [employer] [place], [place] SITE: [place], [place] INTERPRETED BY: [facility] [place], [place] TRANSTHORACIC ECHOCARDIOGRAM REPORT REFERRING DIAGNOSIS: Paroxysmal [...] fibrillation. Note: This study was performed by [facility] for [facility].Only the interpretation was performed at the [facility]. Electronically signed Gil Solares MD, [employer] , 04:45 P A epifanio/Doc#: [id number] cc: Adult Normal Value Adult Patient Values [...] dt 254 ms E' sept 6.04 cm/sec [id number] ms E/e' 10 E' lat 9.65 cm/sec IMPRESSION: Patient height: 185 cm Patient weight: 94 kg Blood pressure: 116/81 mmHg Previous study: 11/19/15 Multimedia Specialist: HIEU Desiree NICHOLS documented in this encounter Visit Diagnoses Not on filedocumented in this encounter Care Teams General Manager [employer] Cloud Relationship Specialty Start Date End Date Casey Berry II, DO PCP - General 11/22/06 08/17/19 Stephani Aleman MD PCP - General Family Medicine 08/18/19 09/16/20 Bianka Loera, FLOOR SCRAPER [address] [place] [phone] PCP - General Nurse Practitioner Family 09/17/20 712/31 Desiree Patrick MD [address] [place] [address] PCP - General Electrophysiology 02/23/22 03/09/22 Desiree Patrick MD [address] [place] [address] 08/09/17 Farrah Nicole APRN,CIGARETTE AND FILTER CHIEF INSPECTOR [address] [place] [address] 08/09/17 Bry Echevarria MD [facility] [place] [address] 08/09/17 Casey Berry II, DO 08/09/17 Shruti Vergara RN RN Registered Nurse 08/27/20 documented as of this encounter Additional Source Comments PLEASE NOTE: Replies to this message will not be received.[facility] and [facility]
--- OUTSIDE RECORDS SUMMARY | 2023-11-25 12:06 | XMS_ITS | Encounter Summary ---
Author Name Unknown Organization [employer] Address [address] [place] [address] Care Team Providers Care Equipment Engineering Technician Name Role Phone Jamal CARLISLE DO, Robert William Primary Care Provide r Unavailable Desiree Patrick MD Unavailable Farrah Nicole APRN,NURSERY NURSE Unavailable Bry Echevarria MD Unavailable Jamal CARLISLE DO, Robert William Unavailable Unav Stephani Diaz MD Primary Care Provider Shruti Vergara RN Unavailable Unavailable Bianka Loera CNP Primary Care Provider Desiree Patrick MD Primary Care P rovider Encounter Details Date Type Department Care Team (Late st Contact Info) Description 10/08/[address] [facility] Family Medicine [address] [place] [address] Social History Tobacco Use Types Packs/Day Years [...] as of this encounter Nursing Notes * [facility], GENERICPROVIDER - 10/08/2016 12:00 AM CDT [...] chest pain or confusion. Patient instructed by program writer to go to the Emergency Room at [facility] to be evaluated. Patient verbalized understanding of instructions. STACY MCCAULEY Electronically signed by:Tammy Coronado RN Oct 08 2016 8:22AM WOOD PANEL INSPECTOR documented in this encounter Plan of Treatment Not on file documented as of this encounter Visit Diagnoses Not on filedocumented in this encounter Care Teams Equipment Engineering Technician Relationship Specialty Start Date End Date Casey Berry II, DO PCP - General 11/22/06 08/17/19 Stephani Aleman MD PCP - General Family Medicine 08/18/19 09/16/20 Bianka Loera CNP [address] [place] [address] 2 [place] [address] PCP - General Nurse Practitioner Family 09/17/2001/10 Desiree Patrick MD [address] [place] [address] PCP - General Electrophysiology 02/23/22 03/09/22 Desiree Patrick MD [address] [place] [address] 08/09/17 Farrah Nicole, ELECTRICAL MECHANICAL TECHNICIAN,NURSERY NURSE [address] [place] [address] 08/09/17 Bry Echevarria MD [address] [place] [address] 08/09/17 Casey Berry II, DO 08/09/17 Shruti Vergara RN RN Registered Nurse 08/27/20 documented as of this encounter Additional Source Comments PLEASE NOTE: Replies to this message will not be received.[facility]
--- OUTSIDE RECORDS SUMMARY | 2023-11-25 12:07 | XMS_ITS | Encounter Summary ---
Author Name Unknown Organization [employer] Address [address] [place] [address] Care Team Providers Care Kettle Chipper Name Role Phone Jamal CARLISLE DO, Robert William Primary Care Provide r Unavailable Desiree Patrick MD Unavailable Farrah Nicole APRN,MARINA DRY DOCK MANAGER Unavailable Bry Echevarria MD Unavailable Jamal CARLISLE DO, Robert William Unavailable Unav Stephani Diaz MD Primary Care Provider Shruti Vergara RN Unavailable Unavailable Bianka Loera CNP Primary Care Provider [phone] Desiree Patrick MD Primary Care P rovider Encounter Details Date Type Department Care Team (Late st Contact Info) Description 08/22/2014 Historical Conversion [facility] Family Medicine [address] [place] [address] Casey Berry II, DO Social History Tobacco Use Types Packs/Day Years Used Date Smoking Tobacco: Never Assessed Sex and Gender Information Value Date Recorded Sex Assigned at Not on file Gender Identity Not on file Sexual Orientation Not on file documented as of this encounter Progress Notes * Casey Berry II, DO - 01/29/2015 12:00 AM CDT CRISTIAN BLEDSOE : 1945 HX: [id number] DOS: 01/29/2015 CHIEF COMPLAINT: Follow up after [...] by:Casey Berry D.O. Feb 11 2015 7:55AM INFANTRY UNIT LEADER * Casey Berry II, DO - 09/10/2014 12:00 AM CST CRISTIAN BLEDSOE : 1945 HX: [id number] DOS: 09/10/2014 CHIEF COMPLAINT: Follow up of [...] by:Casey Berry D.O. Sep 26 2014 3:33PM INFANTRY UNIT LEADER documented in this encounter Miscellaneous Notes * [...] you have any questions. Casey Berry DO [facility] Electronically signed by:DEYANIRA FRANCOIS Dec 06 2014 9:03AM INFANTRY UNIT LEADER documented in this encounter Plan of Treatment Not on file documented as of this encounter Visit Diagnoses Not on filedocumented in this encounter Care Teams Kettle Chipper Relationship Specialty Start Date End Date Casey Berry II, DO PCP - General 11/22/06 08/17/19 Stephani Aleman MD PCP - General Family Medicine 08/18/19 09/16/20 Bianka Loera, GUARD ENTRANCE REGISTRAR [address] [place] [address] PCP - General Nurse Practitioner Family 09/17/2001/10 Desiree Patrick MD [address] [place] [address] PCP - General Electrophysiology 02/23/22 03/09/22 Desiree Patrick MD [address] [place] [address] 08/09/17 Farrah Nicole APRN,MARINA DRY DOCK MANAGER [address] [place] [address] 08/09/17 Bry Echevarria MD [address] [place] [address] 08/09/17 Casey Berry II, DO 08/09/17 Shruti Vergara RN RN Registered Nurse 08/27/20 documented as of this encounter Additional Source Comments PLEASE NOTE: Replies to this message will not be received.[facility] and [facility]
--- OUTSIDE RECORDS SUMMARY | 2023-11-25 12:07 | XMS_ITS | Encounter Summary ---
Author Name Unknown Organization [facility] [employer] [facility] Address [address] [place] [address] Care Team Providers Care Mine Safety Engineer Name Role Phone Jamal CARLISLE DO, Robert William Primary Care Provide r Unavailable Desiree Patrick MD Unavailable Farrah Nicole APRN,BURNISHER AND BUMPER Unavailable Bry Echevarria MD Unavailable Jamal CARLISLE DO, Robert William Unavailable Unav Stephani Diaz MD Primary Care Provider Shruti Veragra RN Unavailable Unavailable Bianka Loera CNP Primary Care Provider Desiree Patrick MD Primary Care P rovider Encounter Details Date Type Department Care Team (Late st Contact Info) Description 11/26/2015 HIM Title Agent [facility] [address] [address] Rajeev Barlow MD Social History [...] Order(s): MYOCARDIAL PERFUSION PHARMACOLOGIC STRESS PERFORMED BY: [facility] [employer] SERVICES [place], [place] SITE: [place] INTERPRETED BY: [facility] [place], [place] PHARMACOLOGIC MYOCARDIAL PERFUSION SCAN Study supervised [...] TYPE: Rest/stress, single isotope gated SPECT imaging. [id number]: 12.5 mCi (IV) for the rest injection. [id number]: 33.1 mCi (IV) for the stress injection. [...] function. Note: This study was performed by [employer]. Only the interpretation was performed at the [facility] [place]. Electronically signed Rajeev Barlow MD, [facility] [place] , 03:10 P A dsc/Doc#: [id number] cc: documented in this encounter Plan of Treatment Not on file documented as of this encounter Procedures Procedure Name Priority Date/Time Associated Diagnosis Comments MYOCARDIAL PERFUSION PHARMACOLOGIC STRESS 11/26/2015 documented in this encounter Results * MYOCARDIAL PERFUSION PHARMACOLOGIC STRESS (11/26/2015) Anatomical Region Laterality Modality Other 11/26/2015 Narrative Procedure Note Rajeev Barlow MD - 11/26/2015 12:00 AM CDT PERFORMED BY: [employer] [place], [place] SITE: [place], [place] INTERPRETED BY: [place], [place] PHARMACOLOGIC MYOCARDIAL PERFUSION SCAN Study supervised by: Casey Berry II, DO INDICATION: Atrial fibrillation. MEDICATIONS: Lisinopril, metoclopramide, Tylenol, [...] TYPE: Rest/stress, single isotope gated SPECT imaging. [id number]: 12.5 mCi (IV) for the rest injection. [id number]: 33.1 mCi (IV) for the stress injection. [...] function. Note: This study was performed by [employer]. Only theinterpretation was performed at the [facility] [place]. Electronically signed Rajeev Barlow MD, [facility] [place] , 03:10 P A dsc/Doc#: [id number] cc: Rajeev Barlow MD [facility] MED/STRESS documented in this encounter Visit Diagnoses Not on filedocumented in this encounter Care Teams Mine Safety Engineer Relationship Specialty Start Date End Date Casey Berry II, DO PCP - General 11/22/06 08/17/19 Stephani Aleman MD PCP - General Family Medicine 08/18/19 09/16/20 Bianka Loera CNP [address] [place] [address] PCP - General Nurse Practitioner Family 09/17/20 712/31 Desiree Patrick MD [address] [place] [address] PCP - General Electrophysiology 02/23/22 03/09/22 Desiree Patrick MD [address] [place] [address] 08/09/17 Farrah Nicole APRN,ALEX [address] [place] [address] 08/09/17 Bry Echevarria MD [address] [facility] [place] [address] 08/09/17 Casey Berry II, DO 08/09/17 Shruti Vergara RN RN Registered Nurse 08/27/20 documented as of this encounter Additional Source Comments PLEASE NOTE: Replies to this message will not be received.[facility] and [facility]
--- OUTSIDE RECORDS SUMMARY | 2023-11-25 12:07 | XMS_ITS | Encounter Summary ---
Author Name Unknown Organization [facility] Address [address] [place] [address] Care Team Providers Care General Road Supervisor Name Role Phone Jamal CARLISLE DO, Robert William Primary Care Provide r Unavailable Desiree Patrick MD Unavailable Farrah Nicole APRN,SURGICAL NURSE PRACTITIONER Unavailable Bry Echevarria MD Unavailable Jamal CARLISLE DO, Robert William Unavailable Unav Stephani Diaz MD Primary Care Provider Shruti Vergara RN Unavailable Unavailable Bianka Loera CNP Primary Care Provider [phone] Desiree Patrick MD Primary Care P rovider Encounter Details Date Type Department Care Team (Late st Contact Info) Description 09/10/2014 Historical Conversion [facility] Family Medicine [address] [place] [id number] Casey Berry II, DO Social History Tobacco Use Types Packs/Day Years Used Date Smoking Tobacco: Never Assessed Sex and Gender Information Value Date Recorded Sex Assigned at Not on file Gender Identity Not on file Sexual Orientation Not on file documented as of this encounter Last Filed Vital Signs Vital Sign Reading Time Taken Comments Blood Pressure 130/80 09/10/2014 12:00 AM ICER MACHINE OPERATOR Pulse - - Temperature - - Respiratory Rate - - Oxygen Saturation - - Inhaled Oxygen Concentration - - Weight 93.9 kg (207 lb 0.2 oz) 09/10/2014 12:00 AM ICER MACHINE OPERATOR Height - - Body Mass Index 27.31 08/22/2014 12:00 AM ICER MACHINE OPERATOR documented in this encounter Plan of Treatment Not on file documented as of this encounter Visit Diagnoses Not on filedocumented in this encounter Care Teams General Road Supervisor Relationship Specialty Start Date End Date Casey Berry II, DO PCP - General 11/22/06 08/17/19 Stephani Aleman MD PCP - General Family Medicine 08/18/19 09/16/20 Bianka Loera CNP [address] [place] [address] [address] [place] [phone] PCP - General Nurse Practitioner Family 09/17/2001/10 Desiree Patrick MD [address] [place] [address] PCP - General Electrophysiology 02/23/22 03/09/22 Desiree Patrick MD [address] [place] [address] 08/09/17 Farrah Nicole APRN,SURGICAL NURSE PRACTITIONER [address] [place] [address] 08/09/17 Bry Echevarria MD [address] [place] [address] [place] [phone] 08/09/17 Casey Berry II, DO 08/09/17 Lux, Shruti M, RN RN Registered Nurse 08/27/20 documented as of this encounter Additional Source Comments PLEASE NOTE: Replies to this message will not be received.[facility] and [facility]
--- OUTSIDE RECORDS SUMMARY | 2023-11-25 12:07 | XMS_ITS | Encounter Summary ---
Author Name Unknown Organization [employer] Address [address] [place] [address] Care Team Providers Care Carpenter Ship Name Role Phone Jamal CARLISLE DO, Robert William Primary Care Provide r Unavailable Desiree Patrick MD Unavailable Farrah Nicole APRN,FLOWER PICKER Unavailable Bry Echevarria MD Unavailable Jamal CARLISLE DO, Robert William Unavailable Unav Stephani Diaz MD Primary Care Provider Shruti Vergara RN Unavailable Unavailable Bianka Loera CNP Primary Care Provider Desiree Patrick MD Primary Care P rovider Encounter Details Date Type Department Care Team (Late st Contact Info) Description 08/22/2014 Historical Conversion [facility] Family Medicine [address] [place] [id number] Casey Berry II, DO Social History Tobacco [...] AND PHYSICAL CRISTIAN BLEDSOE : 1945 HX: [id number] DOS: 08/22/2014 CHIEF COMPLAINT: Routine physical. HISTORY [...] alcohol. 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 ALLERGIES: PENICILLIN AND SULFA. HEALTH CARE MAINTENANCE: [...] by:Casey Berry D.O. Sep 06 2014 7:40AM CERTIFIED ALCOHOL DRUG COUNSELOR documented in this encounter Plan of Treatment Not on file documented as of this encounter Visit Diagnoses Not on filedocumented in this encounter Care Teams Carpenter Ship Relationship Specialty Start Date End Date Casey Berry II, DO PCP - General 11/22/06 08/17/19 Stephani Aleman MD PCP - General Family Medicine 08/18/19 09/16/20 Bianka Loera CNP [address] [facility] [address] [place] [address] PCP - General Nurse Practitioner Family 09/17/2001/10 Desiree Patrick MD [address] [place] [address] PCP - General Electrophysiology 02/23/22 03/09/22 Desiree Patrick MD [address] [place] [address] 08/09/17 Farrah Nicole, CAMERA PERSON,FLOWER PICKER [address] [place] [address] 08/09/17 Bry Echevarria MD [address] [place] [place] [phone] 08/09/17 Casey Berry II, DO 08/09/17 Shruti Vergara RN RN Registered Nurse 08/27/20 documented as of this encounter Additional Source Comments PLEASE NOTE: Replies to this message will not be received.[facility] and [facility]
--- OUTSIDE RECORDS SUMMARY | 2023-11-25 12:07 | XMS_ITS | Encounter Summary ---
Author Name Unknown Organization [employer] Address [address] [place] [address] Care Team Providers Care Pipeline Maintenance Supervisor Name Role Phone Jamal CARLISLE DO, Robert William Primary Care Provide r Unavailable Desiree Patrick MD Unavailable Farrah Nicole APRN,SUPERVISOR PIPE JOINTS Unavailable Bry Echevarria MD Unavailable Jamal CARLISLE DO, Robert William Unavailable Unav Stephani Diaz MD Primary Care Provider [phone] Shruti Vergara RN Unavailable Unavailable Bianka Loera CNP Primary Care Provider Desiree Patrick MD Primary Care P rovider Encounter Details Date Type Department Care Team (Late st Contact Info) Description 01/28/[address] [facility] Family Medicine [address] [place] [id number] Social History Tobacco Use Types Packs/Day Years [...] as of this encounter Procedure Notes * [facility], GENERICPROVIDER - 01/28/2016 12:00 AM CDTAssociated Order(s): [...] daily, Reglan 5 mg TID PRN, and [id number] mg BID for pain in right knee. [...] by:Razia Duarte RN Jan 28 2016 12:46PM ENGINE MANAGER documented in this encounter Plan of Treatment Not on file documented as of this encounter Procedures Procedure Name Priority Date/Time Associated Diagnosis Comments ANTICOAGULATION 01/28/2016 documented in this encounter Results * ANTICOAGULATION (01/28/2016) Narrative Procedure Note [facility], GENERICPROVIDER - 01/28/2016 12:00 AM CDT Name: CRISTIAN [...] and approximately 200 lbs. [facility] bleeding or stroke. He lives [...] summer as he is apart of a [employer] garden. Drinks green tea onoccasion; encouraged to avoid [...] by:Razia Duarte RN Jan 28 2016 12:46PM ENGINE MANAGER Genericprovider [facility] OTHER documented in this encounter Visit Diagnoses Not on filedocumented in this encounter Care Teams Pipeline Maintenance Supervisor Relationship Specialty Start Date End Date Casey Berry II, DO PCP - General 11/22/06 08/17/19 Stephani Aleman MD PCP - General Family Medicine 08/18/19 09/16/20 Bianka Loera AIR COMPRESSOR ENGINEER [address] [place] [phone] PCP - General Nurse Practitioner Family 09/17/2001/10 Desiree Patrick MD [address] [place] [address] PCP - General Electrophysiology 02/23/22 03/09/22 Desiree Patrick MD [address] [place] [address] 08/09/17 Farrah Nicole APRN,SUPERVISOR PIPE JOINTS [address] [place] [address] 08/09/17 Bry Echevarria MD [address] [place] [address] 08/09/17 Casey Berry II, DO 08/09/17 Shruti Vergara RN RN Registered Nurse 08/27/20 documented as of this encounter Additional Source Comments PLEASE NOTE: Replies to this message will not be received.[facility] and [facility]
--- OUTSIDE RECORDS SUMMARY | 2023-11-25 12:07 | XMS_ITS | Clinical Summary ---
Author Name Unknown Organization [facility] Address [address] [place] [address] Care Team Providers Care Classroom Instructor Name Role Phone Unavailable Primary Care Provider Unavailabl e Source Comments You are receiving this document as you are listed as the primary care provider,follow-up provider, or the patient has been referred to you for consultation.This is in compliance with the Medicare and[facility] EHR Incentive Program,which states Providers who transition their patient to another setting of careor provider of care or refers their patient to another provider of care shouldprovide summary care record for each transition of care or referral. [facility] Allergies Active Allergy Reactions Criticality Noted Date Comments Penicillins Hives,Rash High 02/03/2022 Sulfa Antibiotics Rash Medium 11/15/2015 Medications Medication Sig Dispensed Refills Start Date End Date Status dofetilide (TIKOSYN) 250 MCG capsule Take 1 Capsule (250 mcg) by mouth two times a day. 06/16/2023 Active donepezil (ARICEPT) 10 MG tablet Take 1 Tablet (10 mg) by mouth daily. 08/26/2023 Active memantine (NAMENDA) 10 MG tablet Take 1 Tablet (10 mg) by mouth two times a day. 08/12/2023 Active lisinopril (ZESTRIL) 10 MG tablet Take 1 Tablet (10 mg) by mouth daily. 09/15/2023 Active warfarin 5 MG tablet Take 1 Tablet (5 mg) by mouth daily. 08/27/2023 Active Magnesium Hydroxide (DULCOLAX OR) Take 2 Tablets by mouth daily. Active carbidopa-levodop a (SINEMET) 25-100 MG tablet Take 3 Tablets by mouth three times a day. 6:30a, 11a, 5p 810 Tablet 3 09/24/2023 Active acetaminophen 500 MG tablet Take 1-2 Tablets (500-1,000 mg) by mouth every 4 hours as needed for Pain. Maximum acetaminophen dose is 4000 mg in 24 hours Active Encounters Date Type Department Care Team Description 09/24/2023 10:50 AM CDT Office Visit [facility] [place], [place] [phone] Curtis Clark MD Parkinsonism, unspecified Parkinsonism type (HRC) (Primary Dx); Dementia, unspecified dementia severity, unspecified dementia type, unspecified whether behavioral, psychotic, or mood disturbance or anxiety (HRC) from Last 3 Months Social History Tobacco Use Types Packs/Day Years Used Date Smoking Tobacco: Never Assessed Sex and Gender Information Value Date Recorded Sex Assigned at Not on file Gender Identity Not on file Sexual Orientation Not on file Last Filed Vital Signs Vital Sign Reading Time Taken Comments Blood Pressure 109/67 09/24/2023 11:16 AM CDT Pulse 65 09/24/2023 11:16 AM CDT Temperature - - Respiratory Rate - - Oxygen Saturation - - Inhaled Oxygen Concentration - - Weight 85.4 kg (188 lb 3.2 oz) 09/24/2023 11:12 AM CDT shoes on Height 185.4 cm (6' 1) 09/24/2023 11:12 AM CDT shoes on Body Mass Index 24.83 09/24/2023 11:12 AM CDT Plan of Treatment Health Maintenance Due Date Last Done Comments Hep C Screening (Preventive Services) 1945 Adult Preventive Visit 1963 COVID-19 Vaccine ( season) 2023 04/17/2023, 05/07/2022, 11/04/2021, Additional history exists Zoster/Shingles (3 of 3) 11/10/2023 09/15/2023, 01/10 DTaP/Tdap/Td (3 - Tdap) 09/14/2033 09/15/19 24, 08/21/2013, 12/26/2002 Pneumococcal 65+ Yrs Completed 08/28/2016, 08/28/2015, 01/28/2010 Influenza Completed 05/04/2023, 09/2021, 03/25/2021, Additional history exists HepA Aged Out No longer eligi ble based on patient's age to complete this topic HepB Aged Out No longer eligi ble based on patient's age to complete this topic Hib Aged Out No longer eligi ble based on patient's age to complete this topic IPV (Polio) Aged Out No longer eligi ble based on patient's age to complete this topic MCV4 Aged Out No longer eligi ble based on patient's age to complete this topic
--- OUTSIDE RECORDS SUMMARY | 2023-11-25 12:07 | XMS_ITS ---
Author Name Unknown Organization [facility] Address [address] [place] [address] Care Team Providers Care Orange Picking Supervisor Name Role Phone Unavailable Unavailable Unavailable Surgery Details Not on file Complications Check Surgery Details section. Procedure Estimated Blood Loss Check Surgery Details section. Procedure Findings Check Surgery Details section. Procedure Specimens Taken Check Surgery Details section.
--- OUTSIDE RECORDS SUMMARY | 2023-11-25 12:07 | XMS_ITS | Referral Summary ---
Author Name Unknown Organization [facility] Address [address] [place] [address] Care Team Providers Care Fuels Engineer Name Role Phone Unavailable Primary Care Provider Unavailabl e Source Comments Patient records contain information from all sites at [facility]. For routine questions regarding patient records, call [phone] during business hours, M-F 8:00 AM - 5:00 PM Central Time. Record requests for emergency care only can be directed to [phone] at any time.[facility] Allergies Active Allergy Reactions Criticality Noted Date Comments Penicillin G Hives (Reselect Reaction) 02/04/20 22 Sulfa (Sulfonamide Antibiotics) Rash 02/03/2022 Medications Medication Sig Dispensed Refills Start Date End Date Status dofetilide (TIKOSYN) 250 mcg capsule Take 250 mg by mouth 2 (two) times a day. 12/26/2021 Active memantine (NAMENDA) 10 mg tablet TAKE 1 TABLET (10 MG) BY MOUTH TWICE DAILY. 11/17/2021 Active lisinopriL (PRINIVIL,ZESTRIL) 10 mg tablet Take 10 mg by mouth daily. 01/19/2022 Active donepeziL (ARICEPT) 10 mg tablet Take 10 mg by mouth daily. 11/29/2021 Active Jantoven 5 mg tablet Take 5 mg by mouth daily. 01/29/2022 Active DME CPAP BiPAP autoSV Advanced or VPAP adapt SV auto Max EPAP: 15 Min EPAP: 7 Max PS: 15 Min PS: 0 02/22/2019 Active DUCODYL, BISACODYL, ORAL Take by mouth. Active carbidopa-levodopa (SINEMET) 25-100 mg per tablet Take 2.5 tablets by mouth 3 (three) times a day. 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 Apnea Sleep Obstructive 02/04/2022 Deficiency Vitamin D 08/26/2021 Spinal Stenosis Lumbar Regio n Without Neurogenic Claudication 12/20/2018 Atrial Fibrillation Unspecified 06/21/2017 Hypertension Essential Primary 10/21/2016 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
--- OUTSIDE RECORDS SUMMARY | 2023-11-25 12:07 | XMS_ITS | Encounter Summary ---
Author Name Unknown Organization [facility] Address [address] [place] [address] Care Team Providers Care Supervisor Slate Splitting Name Role Phone Jamal CARLISLE DO, Robert William Primary Care Provide r Unavailable Desiree Patrick MD Unavailable Farrah Nicole APRN,CUSTOMER FIELD REPRESENTATIVE Unavailable Bry Echevarria MD Unavailable [phone] Jamal CARLISLE DO, Robert William Unavailable Unav Stephani Diaz MD Primary Care Provider Shruti Vergara RN Unavailable Unavailable Bianka Loera CNP Primary Care Provider [phone] Desiree Patrick MD Primary Care P rovider Encounter Details Date Type Department Care Team (Late st Contact Info) Description 08/28/2015 Historical Conversion [facility] Family Medicine [address] [place] [address] Casey Berry II, DO Social History Tobacco Use Types Packs/Day Years Used Date Smoking Tobacco: Never Assessed Sex and Gender Information Value Date Recorded Sex Assigned at Not on file Gender Identity Not on file Sexual Orientation Not on file documented as of this encounter Last Filed Vital Signs Vital Sign Reading Time Taken Comments Blood Pressure 134/90 08/28/2015 12:00 AM HOUSEKEEPING SUPERVISOR HOTEL Pulse - - Temperature - - Respiratory Rate - - Oxygen Saturation - - Inhaled Oxygen Concentration - - Weight 90.2 kg (198 lb 13.7 oz) 016 12:00 AM HOUSEKEEPING SUPERVISOR HOTEL Height 186 cm (6' 1.23) 08/28/2015 12: 00 AM HOUSEKEEPING SUPERVISOR HOTEL Body Mass Index 26.07 08/28/2015 12:00 AM HOUSEKEEPING SUPERVISOR HOTEL documented in this encounter Progress Notes * [...] healthy by no longer smoking.; Status:Complete; Done: 81Oiq6418 Reason For Visit Go over CT results. [...] 1 TABLET BY MOUTH ONCE DAILY; Therapy: 90Rws1627 to (Evaluate:31Vbn8480) Requested for: 38Lld2250; Last Rx:99Qit8560 Ordered 2. Metoclopramide HCl - 5 MG Oral Tablet; TAKE 1 TABLET BY MOUTH THREE TIMES DAILY WITH MEALS; Therapy: 10Sep2014 to (Evaluate:10Ymc1665) Requested for: 81Syv0514; Last Rx:10Mbp6295 Ordered 3. Metoprolol Tartrate 25 MG Oral Tablet; 1/2 to 1 prn a fib Requested for: 05Fbm4561; Last Rx:41Ydn9206 Ordered 4. Tylenol Extra Strength 500 MG Oral Tablet; Therapy: (Recorded:57Row7925) to Recorded 5. Warfarin Sodium 5 MG Oral Tablet; Take as directed by ACC; Therapy: 26Yow8943 to (Evaluate:15May2017) Requested for: 20May2016 Recorded Allergies 1. Penicillins 2. Sulfa Drugs Vitals Recorded: 29Sva9089 10:00AM Systolic 115, RUE, Sitting Diastolic 76, RUE, Sitting Heart Rate 65 Respiration 16 Temperature 97.6 F, Forehead Weight 91.5 kg BMI Calculated 26.45 BSA Calculated 2.16 2+ Falls or 1 Fall with injury in last year? No O2 Saturation 96 Signatures Casey Berry II, D.OWilliam/pj-29 Electronically signed by : Casey Berry DO; Jul 09 2016 1:56PM HOUSEKEEPING SUPERVISOR HOTEL * Casey Berry II, DO - 03/10/2016 [...] use sparingly qid; Therapy: 18Nov2015 to (Last Rx:98Fxw2036) Requested for: 69Frn4690 Ordered 2. Lisinopril 10 MG Oral Tablet; TAKE 1 TABLET BY MOUTH ONCE DAILY; Therapy: 66Hmk9130 to (Evaluate:69Hrc1558) Requested for: 71Pzw1356; Last Rx:05Szt4976 Ordered 3. Metoclopramide HCl - 5 MG Oral Tablet; TAKE 1 TABLET BY MOUTH THREE TIMES DAILY WITH MEALS; Therapy: 10Sep2014 to (Evaluate:13Ahc0028) Requested for: 60Wjr0903; Last Rx:36Yek2717 Ordered 4. Tylenol Extra Strength 500 MG Oral Tablet; Therapy: (Recorded:50Rdn4194) to Recorded 5. Warfarin Sodium 5 MG Oral Tablet; Take as directed by ACC; Therapy: 26Kxd9569 to (Evaluate:83Zzw3972) Requested for: 19Feb2016; Last Rx:19Feb2016 Ordered Allergies [...] Vital Signs [Data Includes: Current Encounter] Recorded: 03Syo1808 10:06AM Blood Pressure 124 / 71 Heart [...] getting severe bradycardia. Signatures Casey Berry II, D.OWilliam/pj-14 Electronically signed by : Casey Berry DO; Apr 02 2016 8:50AM HOUSEKEEPING SUPERVISOR HOTEL * Casey Berry II, DO - 01/28/2016 [...] Therapy: 18Nov2015 to (Last Rx:18Nov2015) Requested for: 74Jhc3156 Ordered 2. Lisinopril 10 MG Oral Tablet; TAKE 1 TABLET BY MOUTH ONCE DAILY; Therapy: 41Vtk1693 to (Evaluate:89Kxn2882) Requested for: 56Jfu1744; Last Rx:00Ave7645 Ordered 3. Metoclopramide HCl - 5 MG Oral Tablet; TAKE 1 TABLET BY MOUTH THREE TIMES DAILY WITH MEALS; Therapy: 10Sep2014 to (Evaluate:74Ozd3751) Requested for: 91Cor1581; Last Rx:70Qza3691 Ordered 4. Tylenol Extra Strength 500 MG Oral Tablet; Therapy: (Recorded:18Nov2015) to Recorded 5. Xarelto 15 MG Oral Tablet; TAKE 1 TABLET DAILY Requested for: 08Jan2016; Last Rx:08Jan2016 Ordered Allergies 1. Penicillins 2. Sulfa Drugs Social History 1. Former smoker: 0 - 10 pack years (V15.82) (Z87.891) Vitals Vital Signs [Data Includes: Current Encounter] Recorded: 00Lrn0818 10:31AM Blood Pressure 139 / 83 Heart [...] of blood thinners. Signatures Casey Berry II, D.OWilliam/dcd-1 Electronically signed by : Casey Berry DO; Feb 11 2016 7:47AM HOUSEKEEPING SUPERVISOR HOTEL * Casey Berry II, DO - 12/11/2015 12:00 AM CDT Chief Complaint/Reason for Visit f/up ct History of Present Illness This is a 70-year-old male who recently underwent a stress test. The stress test showed no major abnormality, however, it was suggested of an aneurysm. 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 [place] that the CT scan would be a [...] 1 TABLET BY MOUTH ONCE DAILY; Therapy: 76Rlk7613 to (Evaluate:23Rhd7705) Requested for: 16Vzp5305; Last Rx:07Wbj3828 Ordered 3. Metoclopramide HCl - 5 MG Oral Tablet; TAKE 1 TABLET BY MOUTH THREE TIMES DAILY WITH MEALS; Therapy: 10Sep2014 to (Evaluate:76Irw6869) Requested for: 15Azj6161; Last Rx:03Rlp3951 Ordered 4. Tylenol Extra Strength 500 MG [...] 0 - 10 pack years (V1.82) (Z87.891) 1. Aortic aneurysm. 2. Nonspecific lung [...] Casey Berry DO; Dec 30 2015 8:19AM HOUSEKEEPING SUPERVISOR HOTEL * Casey Berry II, DO - 11/18/2015 12:00 AM CDT Chief Complaint/Reason for Visit ER follow up History of Present Illness This is a 69-year-old male who has a long history of paroxysmal tachycardia. He recently had an episode of paroxysmal tachycardia. He went in to the ER in [place] and found that he had a flutter [...] INHALE ONE SPRAY TWICE DAILY PRN; Therapy: 37Rph3922 to Requested for: 03Jan2014 Recorded 2. Lisinopril 10 MG Oral Tablet; TAKE 1 TABLET BY MOUTH ONCE DAILY; Therapy: 02Yzs9504 to (Evaluate:23Vzn6052) Requested for: 80Vki2133; Last Rx:22Zkd6497 Ordered 3. Metoclopramide HCl - 5 MG Oral Tablet; TAKE 1 TABLET BY MOUTH THRE E TIMES DAILY WITH MEALS; Therapy: 10Sep2014 to (Evaluate:08Fsy1118) Requested for: 94Mfu8745; Last Rx:46Mfs0969 Ordered 4. Metoprolol Tartrate 25 MG Oral [...] step overall is. Signatures Casey Berry II, D.O./pj-12 Electronically signed by : Casey Berry DO; Nov 26 2015 8:06AM HOUSEKEEPING SUPERVISOR HOTEL documented in this encounter H&P Notes * [...] INHALE ONE SPRAY TWICE DAILY PRN; Therapy: 14Ijs4691 to Requested for: 03Jan2014 Recorded 3. Lisinopril 10 MG Oral Tablet; TAKE 1 TABLET BY MOUTH ONCE DAILY; Therapy: 76Bim6493 to (Evaluate:33Mxa7870) Requested for: 43Apk9204; Last Rx:97Ftn9164 Ordered 4. Metoclopramide HCl - 5 MG Oral Tablet; TAKE 1 TABLET BY MOUTH THRE E TIMES DAILY WITH MEALS; Therapy: 10Sep2014 to (Evaluate:82Fxe7479) Requested for: 83Ckk4708; Last Rx:88Qzi8680 Ordered 5. Vitamin D3 1000 UNIT Oral [...] healthy by no longer smoking.; Status:Complete; Done: 84Wgs1841 1.Prevnar shot. 2.CBC, vitamin D, PSA, comp, and lipid. 3.Did discuss with patient about his foot. Signatures Casey Berry II, DWilliamOWilliam/jaj-08 Electronically signed by : Casey Berry DO; Sep 19 2015 8:13AM HOUSEKEEPING SUPERVISOR HOTEL documented in this encounter Procedure Notes * Casey Berry II, DO - 11/26/2015 12:00 AM CDTAssociated Order(s): NUCLEAR MEDICINE NUCLEAR MEDICINE CRISTIAN BLEDSOE : 1945 HX: [id number] DOS: 11/26/2015 Lexiscan portion of Lexiscan Cardiolite. [...] by:Casey Berry DO Dec 03 2015 7:45AM HOUSEKEEPING SUPERVISOR HOTEL documented in this encounter Miscellaneous Notes * [...] you have any questions. Casey Berry DO [facility] Electronically signed by:DEYANIRA FRANCOIS Sep 09 2015 11:25AM HOUSEKEEPING SUPERVISOR HOTEL documented in this encounter Plan of Treatment Not on file documented as of this encounter Procedures Procedure Name Priority Date/Time Associated Diagnosis Comments NUCLEAR MEDICINE 11/26/2015 documented in this encounter Results * NUCLEAR MEDICINE (11/26/2015) Anatomical Region Laterality Modality Other Narrative Procedure Note Casey Berry II, DO - 11/26/2015 12:00 AM CDT NUCLEAR MEDICINE CRISTIAN BLEDSOE : 1945 HX: [id number] DOS: 11/26/2015 Lexiscan portion of Lexiscan Cardiolite. BASELINE EKG: Shows no abnormality of note. PROTOCOL: Patient was given Lexiscan and Cardiolite. He had no majorcomplaints. EKG CHANGES NOTED DURING TEST: EKG showed no changes. IMPRESSION: 1. Normal Lexiscan portion of Lexiscan Cardiolite. RECOMMENDATIONS: We will await radiologic portion of test. Casey Berry II, D.O./jaj-23 Electronically signed by:Casey Berry DO Dec 03 2015 7:45AM HOUSEKEEPING SUPERVISOR HOTEL Casey Berry II, DO RAD NUCLEAR M EDICINE documented in this encounter Visit Diagnoses Not on filedocumented in this encounter Care Teams Supervisor Slate Splitting Relationship Specialty Start Date End Date Casey Berry II, DO PCP - General 11/22/06 08/17/19 Stephani Aleman MD PCP - General Family Medicine 08/18/19 09/16/20 Bianka Loera RN RESOURCE NURSE [address] [facility] [address] [place] [phone] PCP - General Nurse Practitioner Family 09/17/20 7/12/31 Desiree Patrick MD [address] [place] [address] PCP - General Electrophysiology 02/23/22 03/09/22 Desiree Patrick MD [address] [place] [address] 08/09/17 Farrah Nicole APRN,ALEX [address] [address] 08/09/17 Bry Echevarria MD [address] [place] [address] 08/09/17 Casey Berry II, DO 08/09/17 Shruti Vergara RN RN Registered Nurse 08/27/20 documented as of this encounter Additional Source Comments PLEASE NOTE: Replies to this message will not be received.[facility] and [facility]
--- OUTSIDE RECORDS SUMMARY | 2023-11-25 12:07 | XMS_ITS | Encounter Summary ---
Author Name Unknown Organization [employer] Address [address] [place] [address] Care Team Providers Care Fish And Wildlife Technician Name Role Phone Jamal CARLISLE DO, Robert William Primary Care Provide r Unavailable Desiree Patrick MD Unavailable Farrah Nicole APRN,ADULT CARE PROVIDER Unavailable Bry Echevarria MD Unavailable Jamal CARLISLE DO, Robert William Unavailable Unav Stephani Diaz MD Primary Care Provider [phone] Shruti Vergara RN Unavailable Unavailable Bianka Loera CNP Primary Care Provider Desiree Patrick MD Primary Care P rovider Encounter Details Date Type Department Care Team (Late st Contact Info) Description 01/03/[address] [facility] Family Medicine [address] [place] [address] Errol Berry II, DO Social History Tobacco [...] Weight 92.5 kg (203 lb 15.9 oz) 014 12:00 AM CDT Height - - Body Mass Index - - documented in this encounter Progress Notes * Errol Berry II, DO - 01/03/2014 12:00 AM CDT CRISTIAN BLEDSOE : 1945 HX: [id number] DOS: 01/03/2014 CHIEF COMPLAINT: Back pain. HISTORY [...] by:ERROL BERRY D.O. Jan 17 2014 7:34AM WATERWORKS EMPLOYEE documented in this encounter Plan of Treatment Not on file documented as of this encounter Visit Diagnoses Not on filedocumented in this encounter Care Teams Fish And Wildlife Technician Relationship Specialty Start Date End Date Errol Berry II, DO PCP - General 11/22/06 08/17/19 Stephani Aleman MD PCP - General Family Medicine 08/18/19 09/16/20 Bianka Loera LINE FISHER [address] [place] [address] PCP - General Nurse Practitioner Family 09/17/20 7/12/31 Desiree Patrick MD [address] [place] [address] PCP - General Electrophysiology 02/23/22 03/09/22 Desiree Patrick MD [address] [place] [address] 08/09/17 Farrah Nicole APRN,ADULT CARE PROVIDER [address] [place] [address] 08/09/17 Bry Echevarria MD [address] [place] [address] 08/09/17 Errol Berry II, DO 08/09/17 Shruti Vergara RN RN Registered Nurse 08/27/20 documented as of this encounter Additional Source Comments PLEASE NOTE: Replies to this message will not be received.[facility] and [facility]
--- OUTSIDE RECORDS SUMMARY | 2023-11-25 12:07 | XMS_ITS | Encounter Summary ---
Author Name Unknown Organization [facility] Address [address] [place] [address] Care Team Providers Care Analytical Lab Technician Name Role Phone Jamal CARLISLE DO, Robert William Primary Care Provide r Unavailable Desiree Patrick MD Unavailable Farrah Nicole APRN,DIE CAST PATTERNMAKER Unavailable Bry Echevarria MD Unavailable Jamal CARLISLE DO, Robert William Unavailable Unav ailable Stephani Aleman MD Primary Care Provider Shruti Vergara RN Unavailable Unavailable Bianka Loera CNP Primary Care Provider Desiree Patrick MD Primary Care P rovider Encounter Details Date Type Department Care Team (Late st Contact Info) Description 12/01/2006 HIM Flotation Operator Generic Flotation Operator [address] [place] [address] Social History Tobacco Use Types Packs/Day Years Used Date Smoking Tobacco: Never Assessed Sex and Gender Information Value Date Recorded Sex Assigned at Not on file Gender Identity Not on file Sexual Orientation Not on file documented as of this encounter Plan of Treatment Not on file documented as of this encounter Visit Diagnoses Not on filedocumented in this encounter Care Teams Analytical Lab Technician Relationship Specialty Start Date End Date Casey Berry II, DO PCP - General 11/22/06 08/17/19 Stephani Aleman MD PCP - General Family Medicine 08/18/19 09/16/20 Bianka Loera CNP [address] [place] [address] PCP - General Nurse Practitioner Family 09/17/2001/10 Desiree Patrick MD [address] [place] [address] PCP - General Electrophysiology 02/23/22 03/09/22 Desiree Patrick MD [address] [place] [address] 08/09/17 Farrah Nicole, FLAT HAMMERER,DIE CAST PATTERNMAKER [address] [place] [address] 08/09/17 Bry Echevarria MD [address] [place] [phone] 08/09/17 Casey Berry II, DO 08/09/17 Shruti Vergara, RN RN Registered Nurse 08/27/20 documented as of this encounter Additional Source Comments PLEASE NOTE: Replies to this message will not be received.[facility] and [facility]
--- OUTSIDE RECORDS SUMMARY | 2023-11-25 12:07 | XMS_ITS | Encounter Summary ---
Author Name Unknown Organization [facility] [employer] [facility] Address [address] [place] [address] Care Team Providers Care Melt House Drag Operator Name Role Phone Jamal CARLISLE DO, Robert William Primary Care Provide r Unavailable Desiree Patrick MD Unavailable Farrah Nicole APRN,MANUFACTURER'S REPRESENTATIVE Unavailable Bry Echevarria MD Unavailable Jamal CARLISLE DO, Robert William Unavailable Unav xiable Stephani Aleman MD Primary Care Provider Shruti Vergara RN Unavailable Unavailable Bianka Loera CNP Primary Care Provider Desiree Patrick MD Primary Care P rovider Encounter Details Date Type Department Care Team (Late st Contact Info) Description 11/15/2006 Clinic Encounter [facility] Dermatology [address] [place] [address] Ganga Anderson MD Social History Tobacco Use Types Packs/Day Years Used Date Smoking Tobacco: Never Assessed Sex and Gender Information Value Date Recorded Sex Assigned at Not on file Gender Identity Not on file Sexual Orientation Not on file documented as of this encounter Progress Notes * Ganga Anderson MD - 2006 12:00 AM CDT Rohan Carroll : 1945 E: Ganga Anderson MD/[facility] DERMATOLOGY OFFICE VISIT CHART: [id number] P Date of Service: 2006 Doc #: [id number] P Attending Physician: None available SUBJECTIVE: This [...] 1 cc was used locally. Using a [place] blade, the skin biopsy was then performed. [...] we will set up treatment as indicated. [facility] documented in this encounter Plan of Treatment Not on file documented as of this encounter Visit Diagnoses Not on filedocumented in this encounter Care Teams Melt House Drag Operator Relationship Specialty Start Date End Date Casey Berry II, DO PCP - General 11/22/06 08/17/19 Stephani Aleman MD PCP - General Family Medicine 08/18/19 09/16/20 Bianka Loera CNP [address] [facility] [address] [place] [address] PCP - General Nurse Practitioner Family 09/17/20 7/2 12/31 Desiree Patrick MD [address] [facility] [place] [address] PCP - General Electrophysiology 02/23/22 03/09/22 Desiree Patrick MD [address] [place] [facility] [place] [address] 08/09/17 Frarah Nicole APRN,MANUFACTURER'S REPRESENTATIVE [address] [facility] [place] [address] 08/09/17 Bry Echevarria MD [address] [place] [address] [place] [phone] 08/09/17 Casey Berry II, DO 08/09/17 Shruti Vergara RN RN Registered Nurse 08/27/20 documented as of this encounter Additional Source Comments PLEASE NOTE: Replies to this message will not be received.[facility] and [facility]
--- OUTSIDE RECORDS SUMMARY | 2023-11-25 12:07 | XMS_ITS | Clinical Summary ---
Author Name Unknown Organization [facility] Address [address] [place] [address] Care Team Providers Care Science Editor Name Role Phone Unavailable Primary Care Provider Unavailabl e Source Comments Patient records contain information from all sites at [facility]. For routine questions regarding patient records, call [phone] during business hours, M-F 8:00 AM - 5:00 PM Central Time. Record requests for emergency care only can be directed to [phone] at any time.[facility] Allergies Active Allergy Reactions Criticality Noted [...] Rupture 2015 Overview: 4.[address] [facility] [address] Social History Tobacco Use Types [...] Comments Blood Pressure 136/82 05/17/2023 1:44 PM WINDER FIXER Pulse 70 05/17/2023 1:44 PM WINDER FIXER Temperature 36.8 ??C (98.2 ??F) 05/17/2023 1:44 PM CS T Respiratory Rate - - Oxygen Saturation - - Inhaled Oxygen Concentration - - Weight 87.3 kg (192 lb 7.4 oz) 05/17/2023 1:44 P M WINDER FIXER Height 184 cm (6' 0.44) 04/15/2023 2:57 PM CDT Body Mass Index 25.79 04/15/2023 2:57 PM CDT Plan of Treatment Health Maintenance Due Date Last Done Comments Creatinine Level (Kidney Fun ction Test) 1945 Hepatitis C Screening 1945 Potassium Level 1945 Sodium Level 1945 Zoster Vaccines (2 of 3) 03/25/2010 01/28/2010 Influenza Vaccine (#1) 2023 2, 03/25/2021, 03/12/2020, Additional history exists Fall Risk Screen (Annual) 07/12/2023 COVID-19 Vaccine (2022-2 4 season) 2023 04/17/2023, 05/07/2022, 11/04/2021, Additional history exists DTaP,Tdap,and Td Vaccines (2 - Td or Tdap) 08/21/2023 08/21/2013 Office Visit for Blood Press ure Check / Re-check 05/17/2024 05/17/2023 Pneumococcal vaccine (65+ years) Completed 08/28/2016, 08/28/2015, 01/28/2010
--- OUTSIDE RECORDS SUMMARY | 2023-11-25 12:07 | XMS_ITS | Encounter Summary ---
Author Name Unknown Organization [employer] Address [address] [place] [address] Care Team Providers Care Life Science Taxonomist Name Role Phone Jamal CARLISLE DO, Robert William Primary Care Provide r Unavailable Desiree Patrick MD Unavailable Farrah Nicole APRN,MATERIAL HANDLING TECHNICIAN Unavailable Bry Echevarria MD Unavailable [phone] Jamal CARLISLE DO, Robert William Unavailable Unav Stephani Diaz MD Primary Care Provider [phone] Shruti Vergara RN Unavailable Unavailable Bianka Loera CNP Primary Care Provider [phone] Desiree Patrick MD Primary Care P rovider Encounter Details Date Type Department Care Team (Late st Contact Info) Description 11/07/2015 Historical Conversion [facility] Family Medicine [address] [place] [address] [place] [address] Moon Maloney MD Social History Tobacco Use [...] Body Mass Index 26.65 08/28/2015 12:00 AM BUSINESS ANALYST SALES OPERATIONS documented in this encounter Progress Notes * Moon Maloney MD - 11/06/2016 12:00 AM CDT UROLOGY [facility] CRISTIAN BLEDSOE : 1945 HX: [id number] DOS: 11/06/2016 SUBJECTIVE: Cristian and his are here to discuss the results of the recent prostate biopsy. We ended up taking Anurag off his Coumadin and doing a prostate biopsy because of a positive CRANBERRY GROWER-3 test and an elevated PSA, so he is here with his to discuss that. PHYSICAL EXAMINATION: Vital Signs: Vital signs reviewed in Allscripts. Please see vitals tab for details. His PSA was 5.4. His AUA symptom score is 1. His prostate size is 29.34 grams. The prostate biopsy came back with a [place] 6 adenocarcinoma less than 2% one of two cores on the left base. Adenocarcinoma Curt 7 less than 5% one of two cores on the left mid, and benign prostatic hypertrophy in the left apex. On the right base there was some ARPIT. The right mid showed prostate adenocarcinoma, Curt 3+4 involving 20% two of two cores [...] be comfortable watching him. However, with the [place] 7, I know that they are watching [...] prostatectomy. Moon Maloney M.D./la-1 cc: Jose Winslow M.D./[facility]a cc: Casey Berry II, D.O./[facility]a Electronically signed by:Moon Maloney M.D. Nov 09 2016 1:49PM BUSINESS ANALYST SALES OPERATIONS * Moon Maloney MD - 10/23/2016 12:00 AM CDT UROLOGY [facility] CRISTIAN BLEDSOE : 1945 HX: [id number] DOS: 10/23/2016 SUBJECTIVE: Cristian is here for a prostate biopsy. I saw Cristian in August. PSA has started to go up.He had a little bit of an elevated PSA and elevated PSA velocity. We did a CRANBERRY GROWER-3 test. It did just come back positive. [...] negative. IMPRESSION: 1. Elevated PSA and positive CRANBERRY GROWER-3 test. PLAN: I told Anurag to take [...] Moon Maloney M.D./la-17 cc: Casey Berry II, D.OWilliam/[facility] Electronically signed by:Moon Maloney M.D. Oct 26 2016 12:13PM BUSINESS ANALYST SALES OPERATIONS * Moon Maloney MD - 08/27/2016 12:00 AM CST UROLOGY [facility]RISTIAN BLEDSOE : 1945 HX: [id number] DOS: 08/27/2016 SUBJECTIVE: Cristian comes to see [...] because we are going to do a CRANBERRY GROWER-3 test. LABORATORY DATA: AUA symptom score is 1. He has absolutely no trouble urinating. PSA is 5.4. IMPRESSION: 1. Elevated PSA velocity. PLAN: We are going to go ahead and get a CRANBERRY GROWER-3 test because his velocity is really if [...] going to go ahead and get a CRANBERRY GROWER-3 test today. Obviously if that is positive, [...] course risks of bleeding. However, if the CRANBERRY GROWER-3 is negative, then I would just see him in six months for a PSA. Total time spent with the patient was 25 minutes with greater than 50% in counseling. Moon Maloney M.D./la-21 cc: Casey Berry II, D.OWilliam/[facility]Anitha Electronically signed by:Moon Maloney M.D. Sep 18 2016 1:34PM BUSINESS ANALYST SALES OPERATIONS * Moon Maloney MD - 02/11/2016 12:00 AM CDT UROLOGY [facility]RISTIAN BLEDSOE : 1945 HX: [id number] DOS: 02/11/2016 SUBJECTIVE: Cristian comes to see [...] have changed in his health here since sadaf seen him last October. OBJECTIVE: Vital Signs: [...] Moon Maloney M.D./la-2 cc: Casey Berry, II, D.O./[facility] Electronically signed by:Moon Maloney M.D. Feb 24 2016 9:43AM BUSINESS ANALYST SALES OPERATIONS * Moon Maloney MD - 11/07/2015 12:00 AM CDT UROLOGY CRISTIAN BLEDSOE : 1945 HX: [id number] DOS: 11/07/2015 REFERRING PROVIDER: Dr. Berry. HISTORY [...] He is a former smoker, retired from [employer], he is . FAMILY HISTORY: Negative for [...] Moon Maloney M.D./la-29 cc: Casey Berry II, D.O./[facility] Electronically signed by:Moon Maloney M.D. Nov 25 2015 10:34AM BUSINESS ANALYST SALES OPERATIONS documented in this encounter Plan of Treatment Not on file documented as of this encounter Visit Diagnoses Not on filedocumented in this encounter Care Teams Life Science Taxonomist Relationship Specialty Start Date End Date Casey Berry II, DO PCP - General 11/22/06 08/17/19 Stephani Aleman MD PCP - General Family Medicine 08/18/19 09/16/20 Bianka Loera CNP [address] [facility] [address] [place] [address] PCP - General Nurse Practitioner Family 09/17/20 712/31 [place] [address] [place] [address] PCP - General Electrophysiology 02/23/22 03/09/22 Desiree Patrick MD [address] [place] [address] 08/09/17 Farrah Nicole APRN,MATERIAL HANDLING TECHNICIAN [address] [place] [address] 08/09/17 Bry Echevarria MD [address] [place] [address] 08/09/17 Casey Berry II, DO 08/09/17 Shruti Vergara RN RN Registered Nurse 08/27/20 documented as of this encounter Additional Source Comments PLEASE NOTE: Replies to this message will not be received.[facility] and [facility]
--- OUTSIDE RECORDS SUMMARY | 2023-11-25 12:07 | XMS_ITS | Encounter Summary ---
Author Name Unknown Organization [facility] [employer] Address [address] [place] [address] Care Team Providers Care All Round Logger Name Role Phone Jamal CARLISLE DO, Robert William Primary Care Provide r Unavailable Desiree Patrick MD Unavailable Farrah Nicole APRN,CURTAIN WORKER Unavailable Bry Echevarria MD Unavailable Jamal CARLISLE DO, Robert William Unavailable Unav Stephani Diaz MD Primary Care Provider Shruti Vergara RN Unavailable Unavailable Bianka Loera CNP Primary Care Provider Desiree Patrick MD Primary Care P rovider Encounter Details Date Type Department Care Team (Late st Contact Info) Description 11/19/2015 HIM Dialysis Registered Nurse [facility] [address] [address] [place] [address] [place] [address] Social History Tobacco Use Types Packs/Day [...] ADULT WITH OR WITHOUT CONTRAST PERFORMED BY: [facility] [place] SITE: [facility] [place] INTERPRETED BY: [facility] [place], [place] TRANSTHORACIC ECHOCARDIOGRAM REPORT REFERRING DIAGNOSIS: Atrial [...] comparison. Note: This study was performed by [facility]. Only the interpretation wasperformed at the [facility] [place]. Electronically signed Dionisio Meneses MD, [facility] Nurse Staff [facility] , 04:04 P A vd/Doc#: [id number] cc: Adult Normal Value Adult Patient Values [...] kg Blood pressure: 126/75 Previous study: -- Drafting Detailer: Lisa documented in this encounter Plan of [...] - 11/19/2015 12:00 AM CDT PERFORMED BY: [facility], [place] SITE: [facility] [place] INTERPRETED BY: [facility] [place], [place] TRANSTHORACIC ECHOCARDIOGRAM REPORT REFERRING DIAGNOSIS: Atrial [...] comparison. Note: This study was performed by [facility].Only the interpretation [facility]. Electronically signed Dionisio Meneses MD, [facility] Nurse Staff [facility] , 04:04 P A vd/Doc#: [id number] cc: Adult Normal Value Adult Patient Values [...] kg Blood pressure: 126/75 Previous study: -- Drafting Detailer: Lisa Dionisio Meneses MD [facility] [employer] documented in this encounter Visit Diagnoses Not on filedocumented in this encounter Care Teams All Round Logger Relationship Specialty Start Date End Date Casey Berry II, DO PCP - General 11/22/06 08/17/19 Stephani Aleman MD PCP - General Family Medicine 08/18/19 09/16/20 Bianka Loera, MANAGER DELI [address] [facility] [address] [place] [phone] PCP - General Nurse Practitioner Family 09/17/20 7/12/31 Desiree Patrick MD [address] [facility] [place] [address] PCP - General Electrophysiology 02/23/22 03/09/22 Desiree Patrick MD [address] [facility] [place] [address] 08/09/17 Farrah Nicole APRN,CURTAIN WORKER [address] [place] [phone] 08/09/17 Bry Echevarria MD [address] [place] [phone] 08/09/17 Casey Berry II, DO 08/09/17 Shruti Vergara RN RN Registered Nurse 08/27/20 documented as of this encounter Additional Source Comments PLEASE NOTE: Replies to this message will not be received.[facility]
--- OUTSIDE RECORDS SUMMARY | 2023-11-25 12:07 | XMS_ITS | Encounter Summary ---
Author Name Unknown Organization [employer] Address [address] [place] [address] Care Team Providers Care Bit Tripoler Name Role Phone Jamal CARLISLE DO, Robert William Primary Care Provide r Unavailable Desiree Patrick MD Unavailable Farrah Nicole APRN,BUTADIENE COMPRESSOR OPERATOR Unavailable Bry Echevarria MD Unavailable [phone] Jamal CARLISLE DO, Robert William Unavailable Unav Stephani Diaz MD Primary Care Provider [phone] Shruti Vergara RN Unavailable Unavailable Bianka Loera CNP Primary Care Provider Desiree Patrick MD Primary Care P rovider Encounter Details Date Type Department Care Team (Late st Contact Info) Description 12/11/2015 Historical Conversion [facility] Family Medicine [address] [place] [address] Casey Berry II, DO Social History Tobacco [...] on filedocumented in this encounter Care Teams Bit Tripoler Relationship Specialty Start Date End Date Casey Berry II, DO PCP - General 11/22/06 08/17/19 Stephani Aleman MD PCP - General Family Medicine 08/18/19 09/16/20 Bianka Loera CNP [address] [place] [address] [address] [place] [phone] PCP - General Nurse Practitioner Family 09/17/2001/10 [place] [address] [place] [address] PCP - General Electrophysiology 02/23/22 03/09/22 Desiree Patrick MD [address] [place] [address] 08/09/17 Farrah Nicole APRN,[facility] [address] [place] [address] 08/09/17 Bry cEhevarria MD [address] [place], [place] [address] [address] 08/09/17 Casey Berry II, DO 08/09/17 Shruti Vergara RN RN Registered Nurse 08/27/20 documented as of this encounter Additional Source Comments PLEASE NOTE: Replies to this message will not be received.[facility] and [facility]
--- OUTSIDE RECORDS SUMMARY | 2023-11-25 12:07 | XMS_ITS | Encounter Summary ---
Author Name Unknown Organization [facility] [employer] Address [address] [place] [address] Care Team Providers Care Early Childhood Name Role Phone Jamal CARLISLE DO, Robert William Primary Care Provide r Unavailable Desiree Patrick MD Unavailable Farrah Nicole APRN,MACHINE MAINTENANCE SERVICER Unavailable Bry Echevarria MD Unavailable Jmaal CARLISLE DO, Robert William Unavailable Unav xiable Stephani Aleman MD Primary Care Provider Shruti Vergara RN Unavailable Unavailable Bianka Loera CNP Primary Care Provider Desiree Patrick MD Primary Care P rovider Encounter Details Date Type Department Care Team (Late st Contact Info) Description [address] [address] Social History Tobacco Use Types Packs/Day Years [...] on filedocumented in this encounter Care Teams Early Childhood Relationship Specialty Start Date End Date Casey Berry II, DO PCP - General 11/22/06 08/17/19 Stephani Aleman MD PCP - General Family Medicine 08/18/19 09/16/20 Bianka Loera, [facility] [address] [place] [phone] PCP - General Nurse Practitioner Family 09/17/20 712/31 Desiree Patrick MD [address] [place] [address] PCP - General Electrophysiology 02/23/22 03/09/22 Desiree Patrick MD [address] [place] [address] 08/09/17 Farrah Nicole APRN,MACHINE MAINTENANCE SERVICER [address] [place] [address] 08/09/17 Bry Echevarria MD [address] [place] [phone] 08/09/17 Casey Berry II, DO 08/09/17 Shruti Vergara RN RN Registered Nurse 08/27/20 documented as of this encounter Additional Source Comments PLEASE NOTE: Replies to this message will not be received.[facility] and [facility]
--- OUTSIDE RECORDS SUMMARY | 2023-11-25 12:07 | XMS_ITS | Encounter Summary ---
Author Name Unknown Organization [employer] Address [address] [place] [address] Care Team Providers Care Manager Forensic Name Role Phone Jamal CARLISLE DO, Robert William Primary Care Provide r Unavailable Desiree Patrick MD Unavailable Farrah Nicole APRN,SANITARY PLUMBER Unavailable Bry Echevarria MD Unavailable [phone] Jamal CARLISLE DO, Robert William Unavailable Unav Stephani Diaz MD Primary Care Provider Shruti Vergara RN Unavailable Unavailable Bianka Loera CNP Primary Care Provider Desiree Patrick MD Primary Care P rovider Encounter Details Date Type Department Care Team (Late st Contact Info) Description 08/22/2014 Historical Conversion [facility] Family Medicine [address] [place] [phone] Casey Berry II, DO Social History Tobacco Use Types Packs/Day Years Used Date Smoking Tobacco: Never Assessed Sex and Gender Information Value Date Recorded Sex Assigned at Not on file Gender Identity Not on file Sexual Orientation Not on file documented as of this encounter Last Filed Vital Signs Vital Sign Reading Time Taken Comments Blood Pressure 145/88 08/22/2014 12:00 AM BIOFUELS MANAGER Pulse - - Temperature - - Respiratory Rate - - Oxygen Saturation - - Inhaled Oxygen Concentration - - Weight 90.7 kg (200 lb) 08/22/2014 12:00 AM BIOFUELS MANAGER Height 185.4 cm (6' 1) 08/22/2014 12:00 AM BIOFUELS MANAGER Body Mass Index 26.39 08/22/2014 12:00 AM BIOFUELS MANAGER documented in this encounter Plan of Treatment Not on file documented as of this encounter Visit Diagnoses Not on filedocumented in this encounter Care Teams Manager Forensic Relationship Specialty Start Date End Date Casey Berry II, DO PCP - General 11/22/06 08/17/19 Stephani Aleman MD PCP - General Family Medicine 08/18/19 09/16/20 Bianka Loera CNP [address] [place] [address] [address] [place] [address] PCP - General Nurse Practitioner Family 09/17/2001/10 Desiree Patrick MD [address] [place] [address] PCP - General Electrophysiology 02/23/22 03/09/22 Desiree Patrick MD [address] [place] [address] 08/09/17 Farrah Nicole APRN,SANITARY PLUMBER [address] [facility] [place] [address] 08/09/17 Bry Echevarria MD [address] [place] [phone] 08/09/17 Casey Berry II, DO 08/09/17 Shruti Vergara RN RN Registered Nurse 08/27/20 documented as of this encounter Additional Source Comments PLEASE NOTE: Replies to this message will not be received.[facility]
--- OUTSIDE RECORDS SUMMARY | 2023-11-25 12:07 | XMS_ITS | Encounter Summary ---
Author Name Unknown Organization [facility] Address [address] [place] [address] Care Team Providers Care Commis Chef Name Role Phone Jamal CARLISLE DO, Robert William Primary Care Provide r Unavailable Desiree Patrick MD Unavailable Farrah Nicole APRN,BENDING SHED WORKER Unavailable Bry Echevarria MD Unavailable [phone] Jamal CARLISLE DO, Robert William Unavailable Unav Stephani Diaz MD Primary Care Provider Shruti Vergara RN Unavailable Unavailable Bianka Loera CNP Primary Care Provider Desiree Patrick MD Primary Care P rovider Encounter Details Date Type Department Care Team (Late st Contact Info) Description 01/31/2016 Historical Conversion [facility] Family Medicine [address] [place] [id number] Social History Tobacco Use Types Packs/Day Years [...] as of this encounter Procedure Notes * [facility] - 01/14/2017 12:00 AM CDTAssociated Order(s): ANTICOAGULATION Anticoagulation Clinic [facility] Name: CRISTIAN BLEDSOE : 1945 DOS: 01/14/2017 [...] by:Tiffani Carrero RN Jan 14 2017 11:11AM HORSE FARM MANAGER * [facility] MICHELLEPROLUBNA - 12/23/2016 12:00 AM CDTAssociated Order(s): ANTICOAGULATION Anticoagulation Clinic [facility] Name: CRISTIAN BLEDSOE : 1945 DOS: 12/23/2016 [...] by:Tiffani Carrero RN Dec 23 2016 11:30AM HORSE FARM MANAGER * [facility], GENERICPROVIDER - 12/02/2016 12:00 AM CDTAssociated Order(s): ANTICOAGULATION Anticoagulation Clinic [facility] Name: CRISTIAN BLEDSOE : 1945 DOS: 12/02/2016 [...] by:Tiffani Carrero RN Dec 02 2016 4:10PM HORSE FARM MANAGER * [facility], GENERICPROVIDER - 11/17/2016 12:00 AM CDTAssociated Order(s): ANTICOAGULATION Anticoagulation Clinic [facility] Name: CRISTIAN BLEDSOE : 1945 DOS: 11/17/2016 [...] has an appointment next week with an payroll officer to discuss a possible ablation. Patient denies any medication changes. INR tested today is therapeutic at 2.7 with the recommended range of 2.0 to 3.0. Patient will continue Coumadin at 5 mg daily with an INR recheck in two weeks. Patient verbalizes understanding. Electronically signed by:Tiffani Carrero RN Nov 17 2016 9:36AM HORSE FARM MANAGER * [facility] GENERICPROVIMARISA - 11/10/2016 12:00 AM CDTAssociated Order(s): ANTICOAGULATION Anticoagulation Clinic [facility] Name: CRISTIAN BLEDSOE : 1945 DOS: 11/10/2016 [...] will adjust Coumadin with a hold today (11/10), then take 5 mg daily with an INR recheck in one week. Patient verbalizes understanding. Electronically signed by:Tiffani Carrero RN Nov 10 2016 2:41PM HORSE FARM MANAGER * [facility] GENERIC[facility]OV[facility] - 10/29/2016 12:00 AM CDTAssociated Order(s): ANTICOAGULATION Anticoagulation [facility] Name: CRISTIAN BLEDSOE : 1945 DOS: [...] by:Tiffani Carrero RN Oct 29 2016 3:44PM HORSE FARM MANAGER * MICHELLE AUSTINPROLBUNA - 10/23/2016 12:00 AM CDTAssociated Order(s): ANTICOAGULATION Anticoagulation Clinic [facility] Name: CRISTIAN BLEDSOE : 1945 DOS: 10/23/2016 This is a patient of Dr. Berry. He is taking anticoagulation for a diagnosis of atrial fibrillation.He is scheduled for a prostate biopsy today at the [facility] with Dr. Maloney. Patient had his INR checked in the [facility] lab prior to his procedure today. A [...] by:Tiffani Carrero RN Oct 26 2016 9:49AM HORSE FARM MANAGER * [facility] - 10/13/2016 12:00 AM CDTAssociated Order(s): ANTICOAGULATION Anticoagulation Clinic [facility] Name: CRISTIAN BLEDSOE : 1945 DOS: 10/13/2016 [...] will have his INR checked at the [facility] prior to his biopsy which is [...] by:Tiffani Carrero RN Oct 13 2016 12:13PM HORSE FARM MANAGER AMENDMENTS: 1. Patient states that he was in the [facility] ER on October 08 with a rapid [...] by:Tiffani Carrero RN Oct 13 2016 12:36PM HORSE FARM MANAGER * [facility] GENER[facility]OVID[facility] - 09/15/2016 12:00 AM CSTAssociated Order(s): ANTICOAGULATION Anticoagulation [facility] Name: CRISTIAN BLEDSOE : 1945 DOS: [...] by:Tiffani Carrero RN Sep 15 2016 2:04PM HORSE FARM MANAGER * [facility] - 08/18/2016 12:00 AM CSTAssociated Order(s): ANTICOAGULATION Anticoagulation [facility] Name: CRISTIAN BLEDSOE : 1945 DOS: [...] by:Tiffani Carrero RN Aug 18 2016 2:21PM HORSE FARM MANAGER * [facility] - 07/28/2016 12:00 AM CSTAssociated Order(s): ANTICOAGULATION Anticoagulation [facility] Name: CRISTIAN BLEDSOE : 1945 DOS: [...] by:Tiffani Carrero RN Jul 28 2016 11:06AM HORSE FARM MANAGER * [facility], GENERICPROVIDER - 07/14/2016 12:00 AM CSTAssociated Order(s): ANTICOAGULATION Anticoagulation Clinic [facility] Name: CRISTIAN BLEDSOE : 1945 DOS: 07/14/2016 [...] by:Tiffani Carrero RN Jul 14 2016 11:21AM HORSE FARM MANAGER * [facility], GENERICPROVIMARISA - 06/30/2016 12:00 AM CSTAssociated Order(s): ANTICOAGULATION Anticoagulation [facility] Name: CRISTIAN BLEDSOE : 1945 DOS: 06/30/2016 This is a patient of Dr. Brery. He is here today for anticoagulation assessment [...] by:Tiffani Carrero RN Jun 30 2016 9:24AM HORSE FARM MANAGER * [facility] - 05/20/2016 12:00 AM CSTAssociated Order(s): ANTICOAGULATION Anticoagulation [facility] Name: CRISTIAN BLEDSOE : 1945 DOS: [...] by:Tiffani Carrero RN May 20 2016 3:59PM HORSE FARM MANAGER * [facility] - 04/15/2016 12:00 AM CDTAssociated Order(s): ANTICOAGULATION Anticoagulation Clinic [facility] Name: CRISTIAN BLEDSOE : 1945 DOS: 04/15/2016 [...] by:Tiffani Carrero RN Apr 15 2016 5:55PM HORSE FARM MANAGER * [facility], MICHELLEPROVIDER - 03/18/2016 12:00 AM CDTAssociated Order(s): ANTICOAGULATION Anticoagulation Clinic [facility] Name: CRISTIAN BLEDSOE : 1945 DOS: 03/18/2016 [...] by:Tiffani Carrero RN Mar 18 2016 9:42AM HORSE FARM MANAGER * MICHELLE AUSTINPROLUBNA - 03/09/2016 12:00 AM [...] Tiffani Carrero RN; Mar 09 2016 9:59AM HORSE FARM MANAGER * [facility] GENERICPROVIDER - 02/27/2016 12:00 AM CDTAssociated Order(s): ANTICOAGULATION Anticoagulation Clinic [facility] Name: CRISTIAN BLEDSOE : 1945 DOS: 02/27/2016 [...] by:Tiffani Carrero RN Feb 27 2016 12:04PM HORSE FARM MANAGER * [facility] GENERICPROLUBNA - 02/12/2016 12:00 AM CDTAssociated Order(s): ANTICOAGULATION Anticoagulation Clinic [facility] Name: CRISTIAN BLEDSOE : 1945 DOS: 02/12/2016 [...] by:Tiffani Carrero RN Feb 12 2016 9:02AM HORSE FARM MANAGER * [facility] GENERICPROLUBNA - 02/04/2016 12:00 AM CDTAssociated Order(s): ANTICOAGULATION Anticoagulation Clinic [facility] Name: CRISTIAN BLEDSOE : 1945 DOS: 02/04/2016 [...] by:Tiffani Carrero RN Feb 04 2016 9:45AM HORSE FARM MANAGER * [facility], GENERICPROVIDER - 01/31/2016 12:00 AM CDTAssociated [...] by:Carlene Hargrove RN Jan 31 2016 2:45PM HORSE FARM MANAGER documented in this encounter Plan of [...] Results * ANTICOAGULATION (01/14/2017) Narrative Procedure Note [facility], GENERICPROVIDER - 01/14/2017 12:00 AM CDT Anticoagulation Clinic [facility] Name: CRISTIAN BLEDSOE : 1945 DOS: 01/14/2017 [...] by:Tiffani Carrero RN Jan 14 2017 11:11AM HORSE FARM MANAGER [facility] OTHER * ANTICOAGULATION (12/23/2016) Narrative Procedure Note [facility] - 12/23/2016 12:00 AM CDT Anticoagulation [facility] Name: CRISTIAN BLEDSOE : 1945 DOS: 12/23/2016 This is a patient of Dr. Berry. He is here today for an anticoagulationassessment and INR check for a diagnosis of atrial fibrillation. Patientstates that he has been feeling well. He reports that he met with at the [facility] and will begin radiation on January 06. [...] by:Tiffani Carrero RN Dec 23 2016 11:30AM HORSE FARM MANAGER [facility] OTHER * ANTICOAGULATION (12/02/2016) Narrative Procedure Note [facility] - 12/02/2016 12:00 AM CDT Anticoagulation [facility] Name: CRISTIAN BLEDSOE : 1945 DOS: 12/02/2016 This is a patient of Dr. Berry. He is here today for an anticoagulationassessment and INR check for a diagnosis of atrial fibrillation. Patientstates that he has been feeling well. He reports that he will met with at the [facility] and has an appointment there on January [...] by:Tiffani Carrero RN Dec 02 2016 4:10PM HORSE FARM MANAGER [facility] OTHER * ANTICOAGULATION (11/17/2016) Narrative Procedure Note [facility] - 11/17/2016 12:00 AM CDT Anticoagulation [facility] Name: CRISTIAN BLEDSOE : 1945 DOS: 11/17/2016 This is a patient of Dr. Berry. He is here today for an anticoagulationassessment and INR check for a diagnosis of atrial fibrillation. Patientstates that he has been feeling well. He reports that [facility] regarding[facility]iation [facility]. He states that he has an appointment next week with anelectrophysiologist to discuss a possible ablation. Patient denies anymedication changes. INR tested today is therapeutic at 2.7 with therecommended range of 2.0 to 3.0. Patient will continue Coumadin at 5 mgdaily with an INR recheck in two weeks. Patient verbalizesunderstanding. Electronically signed by:Tiffnai Carrero RN Nov 17 2016 9:36AM HORSE FARM MANAGER [facility] OTHER * ANTICOAGULATION (11/10/2016) Narrative Procedure Note [facility] - 11/10/2016 12:00 AM CDT Anticoagulation [facility] Name: CRISTIAN BLEDSOE : 1945 DOS: 11/10/2016 This is a patient of Dr. Berry. He is here today for an anticoagulationassessment and INR check for a diagnosis of atrial fibrillation. Patientstates that he has been feeling well. He reports that he has beendiagnosis with prostate cancer and will be meeting [email or web address] to find out information regarding radiation therapy. Patientdenies any medication changes. INR tested today is elevated at 3.6 withthe recommended range of 2.0 to 3.0. Patient will adjust Coumadin with ahold today (11/10), then take 5 mg daily with an INR recheck in one week.Patient verbalizes understanding. Electronically signed by:Tiffani Carrero RN Nov 10 2016 2:41PM HORSE FARM MANAGER [facility] OTHER * ANTICOAGULATION (10/29/2016) Narrative Procedure Note [facility] - 10/29/2016 12:00 AM CDT Anticoagulation [facility] Name: CRISTIAN BLEDSOE : 1945 DOS: [...] by:Tiffani Carrero RN Oct 29 2016 3:44PM HORSE FARM MANAGER [facility] OTHER * ANTICOAGULATION (10/23/2016) Narrative Procedure Note [facility] - 10/23/2016 12:00 AM CDT Anticoagulation [facility] Name: CRISTIAN BLEDSOE : 1945 DOS: 10/23/2016 This is a patient of Dr. Berry. He is taking anticoagulation for adiagnosis of atrial fibrillation. He is scheduled for a prostate biopsytoday at the [facility] with Dr. Maloney. Patient had his INR checkedin the [facility] lab prior to his procedure today. A [...] by:Tiffani Carrero RN Oct 26 2016 9:49AM HORSE FARM MANAGER [facility] OTHER * ANTICOAGULATION (10/13/2016) Narrative Procedure Note [facility] HAIDER BOTELL[facility] - 10/13/2016 12:00 AM CDT Anticoagulation Clinic [facility] Name: CRISTIAN BLEDSOE : 1945 DOS: 10/13/2016 [...] The patient [facility] to his biopsy which is scheduled [...] by:Tiffani Carrero RN Oct 13 2016 12:13PM HORSE FARM MANAGER AMENDMENTS: 1. Patient states that he was in the [facility] ER on October 08 with arapid heart [...] by:Tiffani Carrero RN Oct 13 2016 12:36PM HORSE FARM MANAGER [facility] OTHER * ANTICOAGULATION (09/15/2016) Narrative Procedure Note [facility] - 09/15/2016 12:00 AM CST Anticoagulation Clinic [facility] Name: CRISTIAN BLEDSOE : 1945 DOS: 09/15/2016 [...] by:Tiffani Carrero RN Sep 15 2016 2:04PM HORSE FARM MANAGER [facility] OTHER * ANTICOAGULATION (08/18/2016) [facility]arrative [facility] 08/18/2016 12:00 AM CST Anticoagulation [facility] Name: CRISTIAN BLEDSOE : 1945 DOS: [...] by:Tiffani Carrero RN Aug 18 2016 2:21PM HORSE FARM MANAGER [facility] OTHER * ANTICOAGULATION (07/28/2016) Narrative Procedure Note [facility] - 07/28/2016 12:00 AM CST Anticoagulation [facility] Name: CRISTIAN BLEDSOE : 1945 DOS: [...] by:Tiffani Carrero RN Jul 28 2016 11:06AM HORSE FARM MANAGER [facility] * [facility] (07/14/2016) Narrative Procedure Note [facility] - 07/14/2016 12:00 AM CST Anticoagulation [facility] Name: CRISTIAN BLEDSOE : 1945 DOS: [...] by:Tiffani Carrero RN Jul 14 2016 11:21AM HORSE FARM MANAGER [facility] OTHER * ANTICOAGULATION (06/30/2016) Narrative Procedure Note [facility] - 06/30/2016 12:00 AM CST Anticoagulation [facility] Name: CRISTIAN BLEDSOE : 1945 DOS: [...] by:Tiffani Carrero RN Jun 30 2016 9:24AM HORSE FARM MANAGER [facility] OTHER * ANTICOAGULATION (05/20/2016) Narrative Procedure Note [facility] - 05/20/2016 12:00 AM CST Anticoagulation [facility] Name: CRISTIAN BLEDSOE : 1945 DOS: [...] by:Tiffani Carrero RN May 20 2016 3:59PM HORSE FARM MANAGER [facility] OTHER * ANTICOAGULATION (04/15/2016) Narrative Procedure Note [facility] - 04/15/2016 12:00 AM CDT Anticoagulation [facility] Name: CRISTIAN BLEDSOE : 1945 DOS: [...] by:Tiffani Carrero RN Apr 15 2016 5:55PM HORSE FARM MANAGER [facility] OTHER * ANTICOAGULATION (03/18/2016) Narrative Procedure Note [facility] - 03/18/2016 12:00 AM CDT Anticoagulation [facility] Name: CRISTIAN BLEDSOE : 1945 DOS: [...] by:Tiffani Carrero RN Mar 18 2016 9:42AM HORSE FARM MANAGER [facility] OTHER * ANTICOAGULATION (03/09/2016) Narrative Procedure Note [facility] - 03/09/2016 12:00 AM CDT ACC Comments [...] Tiffani Carrero RN; Mar 09 2016 9:59AMCST [facility] OTHER * ANTICOAGULATION (02/27/2016) Narrative Procedure Note [facility] - 02/27/2016 12:00 AM CDT Anticoagulation [facility] Name: CRISTIAN BLEDSOE : 1945 DOS: [...] by:Tiffani Carrero RN Feb 27 2016 12:04PM HORSE FARM MANAGER [facility] OTHER * ANTICOAGULATION (02/12/2016) Narrative Procedure Note [facility] - 02/12/2016 12:00 AM CDT Anticoagulation [facility] Name: CRISTIAN BLEDSOE : 1945 DOS: [...] by:Tiffani Carrero RN Feb 12 2016 9:02AM HORSE FARM MANAGER [facility] OTHER * ANTICOAGULATION (02/04/2016) Narrative Procedure Note [facility] - 02/04/2016 12:00 AM CDT Anticoagulation [facility] Name: CRISTIAN BLEDSOE : 1945 DOS: [...] by:Tiffani Carrero RN Feb 04 2016 9:45AM HORSE FARM MANAGER [facility] OTHER * ANTICOAGULATION (01/31/2016) Narrative Procedure Note [facility] - 01/31/2016 12:00 AM CDT Name: [...] by:Carlene Hargrove RN Jan 31 2016 2:45PM HORSE FARM MANAGER [facility] OTHER documented in this encounter Visit Diagnoses Not on filedocumented in this encounter Care Teams Commis Chef Relationship Specialty Start Date End Date Casey Berry II, DO PCP - General 11/22/06 08/17/19 Stephani Aleman MD PCP - General Family Medicine 08/18/19 09/16/20 Bianka Loera CNP [address] [place] [address] [address] [place] [id number] PCP - General Nurse Practitioner Family 09/17/20 7/2 12/31 Desiree Patrick MD [address] [place] [address] PCP - General Electrophysiology 02/23/22 03/09/22 Desiree Patrick MD [address] [place] [address] 08/09/17 Farrah Nicole APRN,BENDING SHED WORKER [address] [place] [address] 08/09/17 Bry Echevarria MD [address] [place] [id number] 08/09/17 Casey Berry II, DO 08/09/17 Shruti Vergara, RN RN Registered Nurse 08/27/20 documented as of this encounter Additional Source Comments PLEASE NOTE: Replies to this message will not be received.[facility]
--- OUTSIDE RECORDS SUMMARY | 2023-11-25 12:08 | XMS_ITS | Encounter Summary ---
Author Name Unknown Organization [facility] Address [address] [place] [address] Care Team Providers Care Cell Changer Name Role Phone Unavailable Primary Care Provider Unavailabl e Reason for Visit * Reason Comments CONSULT Confirm diagnosis, s tarted as Vascular Dementia, Parkinsonism, Vascular Parkinson's. Started Carbidopa/Levodopa 2021 and it was helpful. Cognition Has improved, on Don epezil and Memantine. Balance/gait Dysfunction Balance changes , trouble walking. Fall last year, broke arm. Symptoms Stiffness TREMORS Hands and jaw Refill Carbidopa/Levodopa 2 5/100mg Encounter Details Date Type Department Care Team (Late st Contact Info) Description 09/24/2023 10:50 AM CDT Office Visit [facility] [address] [place] [address] [phone] Curtis Clark MD [address] [place], [place] [id number] Parkinsonism, unspecified Parkinsonism type (HRC) (Primary Dx); Dementia, unspecified dementia severity, unspecified dementia type, unspecified whether behavioral, psychotic, or mood disturbance or anxiety (HRC) Social History Tobacco Use Types Packs/Day Years [...] Mass Index 24.83 09/24/2023 11:12 AM CDT documented in this encounter Patient Instructions * Patient Instructions* Curtis Clark MD - 09/24/2023 10:50 AM CDT Foot up device can be used for foot drop. Increase the carbidopa/levodopa to 3 pills per dose. --- Sinemet (carbidopa/levodopa) is a medication that contains two drugs. Levodopa is transported into the brain and converted into dopamine to treat the dopamine deficiency that occurs in Parkinson Disease. Carbidopa works to prevent its conversion in the bloodstream before it gets to the brain. This helps prevent nausea. Protein can compete with the absorption of the Sinemet and its use in the brain. If we are attempting to determine whether the medication is effective, or concerned it is not working well enough, I would recommend taking it either 30- 60 minutes before or 90-120 minutes after meals, especially thosewith high protein. This can be difficult, so once you become experienced with the effect of the medication you can be more flexible around meals if you notice there is not a drastic change in effectiveness. Often a good schedule is to take it before each meal. This way the medication is taking effect for most of the daytime. Some people have nausea when they first start taking the medication. If you notice this you can eatcrackers at the same time. If it continues to be a problem we can consider starting it at a lower dose. Another side effect to look out for is lightheadedness with standing, called orthostatic hypotension. Monitor for improvements in tremor, stiffness, or slowness. Things that may improve are your ability to get up out of a chair, shuffling while walking, ability to use hands for things like buttoning,volume of speech, drooling. This medication tends not to help things like balance and memory. --- Please contact us using [employer] or by calling the [facility] nurse line at [phone]. Two easy ways to stay connected with what is going on at [facility]: If you have not already done so, we encourage you to sign up (for free) to be on our e-mailing list, so that you will receive information about upcoming classes, events, and activities hosted by [facility]! To sign up, simply send an email to [email or web address] indicating that you would like to be included. 2. Follow us on Facebook to learn more about current news and upcoming events. Find us at [facility] [employer]! Learn more about our ongoing [facility] studies here! [email or web address] in this encounter Progress Notes * Curtis Clark MD - 09/24/2023 10:50 AM CDT [facility] New Patient History of Present Illness: Rohan Carroll is a 77 y.o. male with a history of atrial fibrillation, dementia, hypertension, neuropathy, prostate cancer, sleep apnea, footdrop attributed to spinal stenosis presents for second opinion regarding parkinsonism, dementia. Reviewed records. Saw Dr. Zaman on 07/2020 who noted memory loss, failing a driving assessment.Fairly extensive T2 signal changes in the FLAIR images were noted. Was felt to be most likely a vascular dementia. Started on donepezil and memantine. Later saw Dr. Poe and stooped posture, shuffling gait, handwriting changes were noted and did seem to have Parkinson disease based on exam and star jeff on levodopa. Seen today with his . They started to notice cognitive symptoms and around 2019. Was having more difficulty completing taxes. 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 It did seem like donepezil/memantine were helpful. It also seems like the cognition has been relatively stable/actually better since that time. They attribute this to some degree due to decreased stress. No hallucinations. Later started to have shuffling, stooped posture, softer voice, micrographia. He did have a fall with a fracture of his arm and has been more careful on using a walker since that time. They report that levodopa was helpful but for cognition not as walking. No clear on/off symptoms. Occasionally does sound like there is some perioral dyskinesia. He has a longstanding right footdrop attributed to the lumbar spine. He has had some dream enactment behavior. It sounds like they did have neuropsychological testing prior to meeting with Dr. Zaman. Current Outpatient Medications Medication Sig acetaminophen 500 MG tablet Take 1-2 Tablets (500-1,000 mg) by mouth every 4 hours as needed for Pain. Maximum acetaminophen dose is 4000 mg in 24 hours carbidopa-levodopa (SINEMET) 25-100 MG tablet Take 3 Tablets by mouth three times a day. 6:30a, 11a, 5p dofetilide (TIKOSYN) 250 MCG capsule Take 1 Capsule (250 mcg) by mouth two times a day. donepezil (ARICEPT) 10 MG tablet Take 1 Tablet (10 mg) by mouth daily. lisinopril (ZESTRIL) 10 MG tablet Take 1 Tablet (10 mg) by mouth daily. Magnesium Hydroxide (DULCOLAX OR) Take 2 Tablets by mouth daily. memantine (NAMENDA) 10 MG tablet Take 1 Tablet (10 mg) by mouth two times a day. warfarin 5 MG tablet Take 1 Tablet (5 mg) by mouth daily. Past Medical History: Diagnosis Date Atrial fibrillation (HRC) Dementia (HRC) Hypertension (HRC) Neuropathy Prostate cancer (HRC) Sleep apnea, unspecified Spinal stenosis Exam: Orthostatic vitals (seated then standing) Vitals: 09/24/23 1112 09/24/23 1116 BP: 129/78 109/67 Pulse: (!) 54 65 Weight: 85.4 kg (188 lb 3.2 oz) (Right/Left) Mental Status: Awake, alert. Cranial Nerves: Visual blankenship intact to confrontation. Ocular versions full. No facial weakness. Nodysarthria. No tongue fasciculations. Motor: Strength was full in the upper and lower extremities aside from weak right ankle dorsiflexion. Mild-moderate left more than right hand bradykinesia. Moderate rigidity in the arms. Sensory: Romberg negative. Reflexes: Biceps 2/2 Triceps 2/2 Brachioradialis 2/2 Patellar 2/2 Achilles 2/2. Coordination: Finger to nose without dysmetria. Gait: Mildly decreased stride length with use of a walker. Some steppage gait. Data: MR brain w/o 02/19/2020: Moderate to advanced white matter T2 hyperintensities nonspecific, likely microvascular ischemic related. Mild generalized atrophy. Assessment/Plan: 77-year-old male presenting with parkinsonism, dementia. His MRI did have significant subcortical T2 changes. Thus I agree that vascular parkinsonism/vascular dementia are consideration. Things that would support more of a vascular parkinsonism/dementia would be that he seems to have less benefit from levodopa than would be typical of idiopathic Parkinson disease itself, in the fact that his cognitive symptoms seem to have been relatively stable. However Parkinson disease/Parkinson disease dementia is also a consideration. Factors that would support that would be his REM behavior disorder, some mild levodopa induced dyskinesia. We discussed that distinguishing between the two is not that important with regard to treatment. Would try the same cognitive medications and levodopa for both conditions. Will try increasing his levodopa to three pills per dose to see if we can get a little bit more benefit for his gait. We did discuss that dyskinesia can be a side effect. In the future he could try decreasing the dose to better assess how much it is actually helping. I would continue the donepezil and memantine given it did seem to help some what. We discussed that neuropsychological testing could help better define the above however would likely not change number operator and he prefers to hold off which is quite reasonable. TT greater than 60 minutes Note dictated using voice recognition software. Curtis Clark MD documented in this encounter Plan of Treatment Not on file documented as of this encounter Visit Diagnoses Diagnosis Parkinsonism, unspecified Parkinsonism type (HRC)- Primary Dementia, unspecified dementia severity, unspecified dementia type, unspecified whether behavioral, psychotic, or mood disturbance or anxiety (HRC) documented in this encounter
[2023-11-25 13:13] LABS: Potassium* 4.1 mmol/L (3.6-5.1)
[2023-11-25 13:16] LABS: Blood Urea Nitrogen* 11 mg/dL (7-30); Creatinine* 0.8 mg/dL (0.5-1.5); Estimated Glomerular Filt Rate 90 ml/min
== END 2023-11-25 12:01 | disposition home or self-care (01) ==
LOC: NPINS 12:00
PROVIDERS: PCP Family Medicine; Visit Provider Family Medicine
DX: I48.0 Paroxysmal atrial fibrillation (principal)
CPT/HCPCS: 82565; 84132; 84520

== ENCOUNTER 2024-01-27 12:27 | Outpatient (CLI) | payer BC, SELFPAY ==
--- OUTSIDE RECORDS SUMMARY | 2024-02-13 00:16 | XMS_ITS | Clinical Summary ---
Author Organization [facility] Address [place], [place] [address] Care Team Providers Care Director Business Systems Name Role Phone Marli Sauceda MD Primary [...] Department Care Team Description 01/19/2024 Orders Only [facility] [address] [place] [address] Fabio Goldstein MD <No scans attached> 12/07/2023 Telephone [facility] [address] [place] [address] Juan Manuel Pelayo, AuD Hearing Aid 11/25/2023 12:30 PM CDT Office Visit [facility] [address] [place] [address] Juan Manuel Pelayo, AuD Hearing Aid 11/25/2023 Orders Only [facility] Scanner 1 scan: (1-Ord) PERRY, MULTIPLE RESULTS, 11/25/2023 11/25/2023 Orders Only [facility] Scanner 1 scan: (1-Ord) NORMAL ECG, 11/25/2023 11/25/2023 Travel 11/16/2023 Telephone [facility] [address] [facility] [address] [place] [address] Kiya Gomes RN Medication Management [...] OTHER from Last 3 Months Care Teams Director Business Systems Relationship Specialty Start Date End Date Marli Sauceda MD [address] [facility] [place] [address] PCP - General Family Practice 03/13/22
--- OUTSIDE RECORDS SUMMARY | 2024-02-13 00:16 | XMS_ITS | Encounter Summary ---
Author Organization [facility] Address [address] [place] [address] Care Team Providers Care Litigation Legal Assistant Name Role Phone Jamal CARLISLE DO, Robert William Primary Care Provide r Unavailable Desiree Patrick MD Unavailable Farrah Nicole APRN,MURAL ARTIST Unavailable [phone] Bry Echevarria MD Unavailable Jamal CARLISLE DO, Robert William Unavailable Unav Stephani Diaz MD Primary Care Provider Shruti Vergara RN Unavailable Unavailable Bianka Loera CNP Primary Care Provider [phone] Desiree Patrick MD Primary Care P rovider Encounter Details Date Type Department Care Team (Late st Contact Info) Description 02/06/2019 HIM Truck Engine Assembler [facility] [address] [address] Rakesh Williamson Chi, MD Social History Tobacco [...] ADULT WITH OR WITHOUT CONTRAST PERFORMED BY: [place] SITE: [place] INTERPRETED BY: [facility] [place] TRANSTHORACIC ECHOCARDIOGRAM REPORT REFERRING DIAGNOSIS: Sleep [...] function. Note: This study was performed by [facility]. Only the interpretation was performed at the [facility] [place]. Electronically signed Rakesh Williamson MD Chain Splitter , 06:42 A A felipa/Doc#: [id number] cc: Antoine Fitzpatrick MD Adult Normal Value [...] Blood pressure: 139/86 mmHg Previous study: 01/06/2017 Lane Attendant: KRISTA documented in this encounter Plan of [...] - 02/06/2019 12:00 AM CDT PERFORMED BY: [place] SITE: [place] INTERPRETED BY: [facility] [place] TRANSTHORACIC ECHOCARDIOGRAM REPORT REFERRING DIAGNOSIS: Sleep [...] function. Note: This study was performed by [facility]io [place]. Only theinterpretation was performed at the [facility]. Electronically signed Rakesh Williamson MD Chain Splitter , 06:42 A A felipa/Doc#: [id number] cc: Antoine Fitzpatrick MD Adult Normal Value [...] Blood pressure: 139/86 mmHg Previous study: 01/06/2017 Lane Attendant: KRISTA Antoine Fitzpatrick MD,PHD CAR ULTRASOU [place] documented in this encounter Visit Diagnoses Not on filedocumented in this encounter Care Teams Litigation Legal Assistant Relationship Specialty Start Date End Date Casey Berry II, DO PCP - General 11/22/06 08/17/19 Stephani Aleman MD PCP - General Family Medicine 2/7/20 3/8/21 Bianka Loera, DORMITORY MAID [address] [place] [phone] PCP - General Nurse Practitioner Family 09/17/20 712/31 Desiree Patrick MD [address] [place] [address] PCP - General Electrophysiology 02/23/22 03/09/22 Desiree Patrick MD [address] [place] [address] 08/09/17 Farrah Nicole APRN,MURAL ARTIST [address] [place] [address] 08/09/17 Bry Echevarria MD [facility] [place] [phone] 08/09/17 Casey Berry II, DO 08/09/17 Shruti Vergara, RN RN Registered Nurse 08/27/20 documented as of this encounter Additional Source Comments PLEASE NOTE: Replies to this message will not be received.[facility] and [facility]
--- OUTSIDE RECORDS SUMMARY | 2024-02-13 00:16 | XMS_ITS ---
Author Organization [employer] Address [address] [place] [address] Care Team Providers Care Jalousie Installer Name Role Phone Desiree Patrick MD Unavailable Farrah Nicole APRN,ASSOCIATE PROFESSOR OF ENGINEERING Unavailable Bry Echevarria MD Unavailable [phone] Jamal CARLISLE DO, Robert William Unavailable Unav [...] 11/09/2018 Muscle tightness 11/09/2018 Bilateral foot-drop 11/09/2018 director long term care (current) use of anticoagulants 2018 Encounter for monitoring dofetilide therapy 06/11 Atrial fibrillation (HCC) 06/21/2017 Essential hypertension 10/21/2016 Thoracic ascending aortic aneurysm 06/11/2016 Overview: 4.2 x 4.[address] [facility] CT Atrial flutter 11/15/2015 Esophageal dysmotility Overview: uses Reglan on a PRN basis Hearing loss Overview: wears hearing aids Hepatitis C antibody test positive Overview: negative quant RNA Current Oncology Plans No current plan information found. Past Plans No past plan information found. Radiation Treatments * No radiation treatments are documented for this patient in [facility]. Treatments may have been administered [...]
--- OUTSIDE RECORDS SUMMARY | 2024-02-13 00:16 | XMS_ITS | Referral Summary ---
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 More than 4 times per year [...] and heating? Not hard at all 04/04/2021 [facility]at ional [facility] - Occupational [...] Master's degree (e.g., MA, MS, Mirlande, MEd, LAW INSTRUCTOR, ROHIT) 08/19/2020 Sex and Gender Information Value [...] HEPATITIS C AB Routine 08/26/2021 10:09 AM SPOOL FIXER Need for hepatitis C screening test COLONOSCOPY Routine 02/27/2020 8:05 AM CDT LIPID PANEL Routine 08/18/2019 9:23 AM SPOOL FIXER Screening for lipid disorders from Last 3 Months or Most Recently Relevant to Health Maintenance Results * (ABNORMAL) HEPATITIS C AB (08/26/2021 10:09 AM SPOOL FIXER) HCV Ab Reactive( A) Nonreactive 08/26/2021 7:41 PM SPOOL FIXER [facility] Comment: This is a reportable disease sent to the [facility]. 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 State of associated disease not determined. Blood VENOUS BLOOD / Unknown Venipuncture / Unknown 08/26/2021 10:09 AM SPOOL FIXER 08/26/2021 10:09 AM SPOOL FIXER Bianka Loera [facility] LAB SEROLOGY ORDERAB LES Performing Organization Address [facility] Co de Phone Number [facility] [address] [place] [address] * COLONOSCOPY (02/27/2020 8:05 AM CDT) 02/27/2020 8:05 AM CDT Narrative [facility] END[facility] - 02/27/2020 9:20 AM CDT [facility] Patient Name: Rohan Carroll Procedure Date: 02/27/2020 8:05 AM Date of : 1945 Admit Type: Outpatient Age: 74 Room: [facility] Gender: Male Note Status: Finalized Attending MD: [...] of the bowel preparation was ?excellent. The [id number] was introduced through the anus ?and advanced [...] 8:05 AM Stephani Aleman MD GI PROCEDURES [employer] ENDO * (ABNORMAL) LIPID PANEL (08/18/2019 9:23 AM SPOOL FIXER) Cholesterol 96 0 - 200 mg/dL 08/18/2019 7:32 PM SPOOL FIXER [facility] Triglycerides 65 30 - 150 mg/dL 08/18/2019 7:32 PM SPOOL FIXER [facility] Cholesterol, LDL (Calculated) 45 0 - 159 mg/dL 08/18/2019 7:32 PM [facility] Cholesterol, HDL 38(L) >40 mg/dL 08/18/19 20 7:32 PM [facility] Cholesterol, vLDL 13 mg/dL 020 7:32 PM [facility] Blood VENOUS BLOOD SPECIMEN / Unknown Venipuncture / Unknown 08/18/2019 9:23 AM SPOOL FIXER 08/18/2019 9:23 AM SPOOL FIXER Stephani Aleman MD LAB CHEMISTRY ORDERA JOSH [facility] [address] [place], [place] [id number] from Last 3 Months or Most Recently Relevant to Health Maintenance Advance Directives Documents on File Type Date Recorded Patient Machine Etcher Expl anation Advanced Directives 08/23/2014 3:05 PM [facility] * Full Code (Latest Code Status on File) Date Activated Date Inactivated Comments 06/21/2017 3:50 PM 06/24/2017 4:37 PM * Full Code Date Activated Date Inactivated Comments 10/19/2016 4:45 PM 10/20/2016 8:57 PM * Full Code Date Activated Date Inactivated Comments 11/15/2015 11:16 PM 11/16/2015 11:46 AM Care Teams Flight Communications Officer Relationship Specialty Start Date End Date Desiree Patrick MD [address] [place] [address] 08/09/17 Farrah Nicole APRN,CUSTOMER SERVICE AGENT [address] [place] [address] 08/09/17 Bry Echevarria MD [address] [place], [place] [address] [phone] 08/09/17 Casey Berry II, DO 08/09/17 Shruti Vergara, RN RN Registered Nurse 08/27/20 Additional Source Comments PLEASE NOTE: Replies to this message will not be received.[facility]
--- OUTSIDE RECORDS SUMMARY | 2024-02-13 00:16 | XMS_ITS | Encounter Summary ---
Author Organization [facility] [employer] Address [address] [place] [address] Care Team Providers Care Technology Strategist Name Role Phone Desiree Patrick MD Unavailable Farrah Nicole APRN, CNS Unavailable Bry Echevarria MD Unavailable [phone] Jamal CARLISLE DO, Robert William Unavailable Unav ailable Shruti Vergara RN Unavailable Unavailable Desiree Patrick MD Primary Care P rovider Encounter Details Date Type Department Care Team (Late st Contact Info) Description 02/25/[address] [address] Social History Tobacco Use Types [...] How often do you attend chur or advent services? More than 4 times per year 04/04/2021 Do you belong to any clubs o r organizations such as caodaism groups, unions, fraternal or athletic groups, or [...] heating? Not hard at all 04/04/2021 [facility] [place] of Occupat ional Health - Occupational Stress [...] Master's degree (e.g., MA, MS, Mirlande, MEd, PEOPLESOFT ADMINISTRATOR, ROHIT) 08/19/2020 Sex and Gender Information Value [...] filedocumented in this encounter Care Teams Technology Strategist Relationship Specialty Start Date End Date Desiree Patrick MD [address] [place] [address] PCP - General Electrophysiology 02/23/22 03/09/22 Desiree Patrick MD [address] [place] [address] 08/09/17 Farrah Nicole APRN,CATHOLIC PRIEST [address] [place] [address] 08/09/17 Bry Echevarria MD [address] [place] [address] 08/09/17 Casey Berry II, DO 08/09/17 Shruti Vergara RN RN Registered Nurse 08/27/20 documented as of this encounter Additional Source Comments PLEASE NOTE: Replies to this message will not be received.[facility] and [facility]
--- OUTSIDE RECORDS SUMMARY | 2024-02-13 00:16 | XMS_ITS | Clinical Summary ---
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 More than 4 times per year 04/04/2021 Do you belong to any clubs o r organizations such as advent groups, unions, fraternal or athletic groups, or [...] and heating? Not hard at all 04/04/2021 [facility] [place] of Occupat ional Health - Occupational Stress [...] Master's degree (e.g., MA, MS, Mirlande, MEd, AUTOMATED TELLER MANAGER, ROHIT) 08/19/2020 Sex and Gender Information [...] HEPATITIS C AB Routine 08/26/2021 10:09 AM ELECTRON MICROPROBE OPERATOR Need for hepatitis C screening test COLONOSCOPY Routine 02/27/2020 8:05 AM CDT LIPID PANEL Routine 08/18/2019 9:23 AM ELECTRON MICROPROBE OPERATOR Screening for lipid disorders from Last 3 Months or Most Recently Relevant to Health Maintenance Results * (ABNORMAL) HEPATITIS C AB (08/26/2021 10:09 AM ELECTRON MICROPROBE OPERATOR) HCV Ab Reactive( A) Nonreactive 08/26/2021 7:41 PM ELECTRON MICROPROBE OPERATOR [facility] Comment: This is a reportable disease sent to the [place] [facility]. 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 State of associated disease not determined. Blood VENOUS BLOOD / Unknown Venipuncture / Unknown 08/26/2021 10:09 AM ELECTRON MICROPROBE OPERATOR 08/26/2021 10:09 AM ELECTRON MICROPROBE OPERATOR Bianka Loera DECORATING MACHINE TENDER LAB SEROLOGY ORDERAB LES [facility] [address] [place] [address] * COLONOSCOPY (02/27/2020 8:05 AM CDT) 02/27/2020 8:05 AM CDT Narrative [facility] END[facility] - 02/27/2020 9:20 AM CDT [facility] Patient Name: Rohan Carroll Procedure Date: 02/27/2020 [...] of the bowel preparation was ?excellent. The [id number] was introduced through the anus ?and advanced [...] 8:05 AM Stephani Aleman MD GI PROCEDURES [employer]-Art ENDO * (ABNORMAL) LIPID PANEL (08/18/2019 9:23 AM ELECTRON MICROPROBE OPERATOR) Cholesterol 96 0 - 200 mg/dL 08/18/2019 7:32 PM ELECTRON MICROPROBE OPERATOR [facility] Triglycerides 65 30 - 150 mg/dL 08/18/2019 7:32 PM [facility] Cholesterol, LDL (Calculated) 45 0 - 159 mg/dL 08/18/2019 7:32 PM ELECTRON MICROPROBE OPERATOR [facility] [employer] [facility] Cholesterol, HDL 38(L) >40 mg/dL 08/18/19 20 7:32 PM [facility] [employer] [facility] Cholesterol, vLDL 13 mg/dL 020 7:32 PM [facility] [employer] [facility] Blood VENOUS BLOOD SPECIMEN / Unknown Venipuncture / Unknown 08/18/2019 9:23 AM ELECTRON MICROPROBE OPERATOR 08/18/2019 9:23 AM ELECTRON MICROPROBE OPERATOR Stephani Aleman MD LAB CHEMISTRY ALEN MORENO [facility] [address] [place] [address] from Last 3 Months or Most Recently Relevant to Health Maintenance Rohan Carroll Personal/Family Self 1945 [facility] [employer] [address] [place] [address] Rohan Carroll Personal/Family Self 1945 [facility] [employer] [address] [place] [address] Rohan Carroll Personal/Family Self 1945 [facility] [employer] [address] [place] [address] Rohan Carroll Personal/Family Self [address] [place] [address] [address] [place] [address] Rohan Carroll Personal/Family Self [address] [place] [address] [employer] [address] [place] [address] Advance Directives Documents on File Type Date Recorded Patient Cyber Analyst Expl anation Advanced Directives 08/23/2014 3:05 PM [facility] * Full Code (Latest Code Status on File) Date Activated Date Inactivated Comments 06/21/2017 3:50 PM 06/24/2017 4:37 PM * Full Code Date Activated Date Inactivated Comments 10/19/2016 4:45 PM 10/20/2016 8:57 PM * Full Code Date Activated Date Inactivated Comments 11/15/2015 11:16 PM 11/16/2015 11:46 AM Care Teams Steamship Agent Relationship Specialty Start Date End Date Desiree Patrick MD [address] [place] [address] 08/09/17 Farrah Nicole APRN,LAUNDRY OPERATOR [address] [place] [address] 08/09/17 Bry Echevarria MD [address] [place] [address] 08/09/17 Casey Berry II, DO 08/09/17 Shruti Vergara RN RN Registered Nurse 08/27/20 Additional Source Comments PLEASE NOTE: Replies to this message will not be received.[facility] and [facility]
--- OUTSIDE RECORDS SUMMARY | 2024-02-13 00:17 | XMS_ITS | Encounter Summary ---
Author Organization [employer] Address [address] [place] [address] Care Team Providers Care Pre Sales Technical Engineer Name Role Phone Jamal CARLISLE DO, Robert William Primary Care Provide r Unavailable Desiree Patrick MD Unavailable Farrah Nicole APRN,FRONTLOAD DRIVER Unavailable Bry Echevarria MD Unavailable Jamal CARLISLE DO, Robert William Unavailable Unav Stephani Diaz MD Primary Care Provider Shruti Vergara RN Unavailable Unavailable Bianka Loera CNP Primary Care Provider [phone] Desiree Patrick MD Primary Care P rovider Encounter Details Date Type Department Care Team (Late st Contact Info) Description 10/18/2017 Historical Conversion [facility] Family Medicine [address] [place] [address] Casey Berry II, DO Social History Tobacco Use Types Packs/Day Years Used Date Smoking Tobacco: Former Cigarettes 1 18 1 96 - 1978 Smokeless Tobacco: Never Alcohol Use [...] Body Mass Index 27.09 09/07/2017 12:00 AM VETERINARY ASSISTANT TECHNICIAN documented in this encounter Functional Status [...] on filedocumented in this encounter Care Teams Pre Sales Technical Engineer Relationship Specialty Start Date End Date Casey Beryr II, DO PCP - General 11/22/06 08/17/19 Stephani Aleman MD PCP - General Family Medicine 08/18/19 09/16/20 Bianka Loera CNP [address] [facility] [place] [phone] PCP - General Nurse Practitioner Family 09/17/2001/10 [place] [address] [place] [address] PCP - General Electrophysiology 02/23/22 03/09/22 Desiree Patrick MD [address] [place] [address] 08/09/17 Farrah Nicole APRN,FRONTLOAD DRIVER [address] [place] [address] 08/09/17 Bry Echevarria MD [address] [place] [address] 08/09/17 Casey Berry II, DO 08/09/17 Shruti Vergara RN RN Registered Nurse 08/27/20 documented as of this encounter Additional Source Comments PLEASE NOTE: Replies to this message will not be received.[facility]
--- OUTSIDE RECORDS SUMMARY | 2024-02-13 00:17 | XMS_ITS | Encounter Summary ---
Author Organization [employer] Address [address] [place] [address] Care Team Providers Care Marriage Performer Name Role Phone Jamal CARLISLE DO, Robert William Primary Care Provide r Unavailable Desiree Patrick MD Unavailable Farrah Nicole APRN,ELECTRICAL PANEL BUILDER Unavailable Bry Echevarria MD Unavailable Jamal CARLISLE DO, Robert William Unavailable Unav Stephani Diaz MD Primary Care Provider [phone] Shruti Vergara RN Unavailable Unavailable Bianka Loera CNP Primary Care Provider Desiree Patrick MD Primary Care P rovider Encounter Details Date Type Department Care Team (Late st Contact Info) Description 09/08/2018 Historical Conversion [facility] Family Medicine [address] [place] [address] Casey Berry II, DO Social History Tobacco [...] Comments Blood Pressure 122/74 09/08/2018 12:00 AM INSTRUCTIONAL CONSULTANT Pulse - - Temperature - - Respiratory Rate - - Oxygen Saturation - - Inhaled Oxygen Concentration - - Weight 92.8 kg (204 lb 9.7 oz) 09/08/2018 12:00 AM INSTRUCTIONAL CONSULTANT Height 184 cm (6' 0.44) 09/08/2018 12:00 AM INSTRUCTIONAL CONSULTANT Body Mass Index 27.41 09/08/2018 12:00 AM INSTRUCTIONAL CONSULTANT documented in this encounter Functional Status Functional [...] on filedocumented in this encounter Care Teams Marriage Performer Relationship Specialty Start Date End Date Casey Berry II, DO PCP - General 11/22/06 08/17/19 Stephani Aleman MD PCP - General Family Medicine 08/18/19 09/16/20 Bianka Loera CNP [address] [facility] [address] [place] [address] PCP - General Nurse Practitioner Family 09/17/2001/10 [place] [address] [place] [address] PCP - General Electrophysiology 02/23/22 03/09/22 Desiree Patrick MD [address] [facility] [place] [address] 08/09/17 Farrah Nicole APRN,ELECTRICAL PANEL BUILDER [address] [facility] [place] [address] 08/09/17 Bry Echevarria MD [address] [place] [address] [place] [address] 08/09/17 Casey Berry II, DO 08/09/17 Shruti Vergara RN RN Registered Nurse 08/27/20 documented as of this encounter Additional Source Comments PLEASE NOTE: Replies to this message will not be received.[facility] and [facility]
--- OUTSIDE RECORDS SUMMARY | 2024-02-13 00:17 | XMS_ITS | Encounter Summary ---
Author Organization [employer] Address [address] [place] [address] Care Team Providers Care Fire Fighter Airport Name Role Phone Jamal CARLISLE DO, Robert William Primary Care Provide r Unavailable Desiree Patrick MD Unavailable Farrah Nicole APRN,ATTENDANCE OFFICER Unavailable Bry Echevarria MD Unavailable Jamal CARLISLE DO, Robert William Unavailable Unav Stephani Diaz MD Primary Care Provider Shruti Vergara RN Unavailable Unavailable Bianka Loera CNP Primary Care Provider Desiree Patrick MD Primary Care P rovider Encounter Details Date Type Department Care Team (Late st Contact Info) Description 06/13/2018 Historical Conversion [facility] Family Medicine [address] [facility] [place] [address] Bry Echevarria MD [address] [place] [address] Social History Tobacco Use Types [...] AM CST CRISTIAN BLEDSOE : 1945 HX: [id number] DOS: 06/13/2018 SUBJECTIVE: Patient is a 72-year-old [...] Jose Winslow in Radiation Oncology at the [facility] [place]. He has not recently had [...] Prostate cancer, status post treatment with radiation. Proctor to be under good control at this [...] later. Bry Echevarria M.D./ekg-[id number] cc: Yury Berry DO/[facility] Radha cc: Elder Maloney MD/[facility] Radha cc: Mare Rubi PA-C/[facility] Radha cc: Jose Winslow MD/[facility] Electronically signed by:Bry Echevarria M.D. Jun 16 2018 2:16PM O AND M SUPERVISOR documented in this encounter Plan of Treatment Not on file documented as of this encounter Visit Diagnoses Not on filedocumented in this encounter Care Teams Fire Fighter Airport Relationship Specialty Start Date End Date Casey Berry II, DO PCP - General 11/22/06 08/17/19 Stephani Aleman MD PCP - General Family Medicine 08/18/19 09/16/20 Bianka Loera BILL RECAPITULATION CLERK [address] [place] [phone] PCP - General Nurse Practitioner Family 09/17/2001/10 Desiree Patrick MD [address] [place] [address] PCP - General Electrophysiology 02/23/22 03/09/22 Desiree Patrick MD [address] [place] [address] 08/09/17 Farrah Nicole, COOK CANDY,ATTENDANCE OFFICER [address] [place] [address] 08/09/17 Bry Echevarria MD [address] [place] [address] 08/09/17 Casey Berry II, DO 08/09/17 Shruti Vergara RN RN Registered Nurse 08/27/20 documented as of this encounter Additional Source Comments PLEASE NOTE: Replies to this message will not be received.[facility]
--- OUTSIDE RECORDS SUMMARY | 2024-02-13 00:17 | XMS_ITS | Encounter Summary ---
Author Organization [facility] Address [address] [place] [address] Care Team Providers Care Substance Abuse Prevention Coordinator Name Role Phone Jamal CARLISLE DO, Robert William Primary Care Provide r Unavailable Desiree Patrick MD Unavailable Farrah Nicole APRN,SNUFF CONTAINER INSPECTOR Unavailable Bry Echevarria MD Unavailable Jamal CARLISLE DO, Robert William Unavailable Unav Stephani Diaz MD Primary Care Provider Shruti Vergara RN Unavailable Unavailable Bianka Loera CNP Primary Care Provider Desiree Patrick MD Primary Care P rovider Encounter Details Date Type Department Care Team (Late st Contact Info) Description 09/07/2017 Historical Conversion [facility] [address] [place] [address] Casey Berry II, DO Social History Tobacco [...] Bilateral leg pain History of Present Illness Altscji-rvb-fimd-old male who states that he was shoveling [...] TAKE 1 CAPSULE EVERY 12 HOURS; Last Rx:[id number] Ordered 2. Lisinopril 10 MG Oral Tablet; TAKE ONE TABLET DAILY; Therapy: 18Oct2017 to Recorded 3. Metoclopramide HCl - 5 MG Oral Tablet; TAKE 1 TABLET BY MOUTH THREE TIMES DAILY WITH MEALS NEEDED; Therapy: 10Sep2014 to (Evaluate:29Oct2017) Requested for: 63Vzb1363; Last Rx:[id number] Ordered 4. Polyethylene Glycol 3350 Oral Powder; take 17 grams in 8 ounces of fluid once daily as needed for constipation; Therapy: 13Fqo0662 to (Evaluate:27May2018); Last Rx:[id number] Ordered 5. Triamcinolone Acetonide 0.1 % External Lotion; APPLY 2-3 TIMES DAILY TO AFFECTED AREA(S); Therapy: 17Ktl0832 to (Last Rx:[id number]) Requested for: 76Tac8018 Ordered 6. Warfarin Sodium 5 MG Oral Tablet; Take as directed by ACC; Therapy: 84Qrh2379 to (Evaluate:10Sep2018) Requested for: 15Sep2017 Recorded Allergies [...] Casey Berry DO; Oct 25 2017 10:02AM SOLIDWORKS MECHANICAL DESIGNER documented in this encounter H&P Notes * [...] healthy by no longer smoking.; Status:Complete; Done: 04Bzw9309 Reason For Visit Routine history and physical. [...] DAILY; Therapy: 14Apr2017 to (Evaluate:27May2018) Requested for: 71Dyb6947; Last Rx:[id number] Ordered 3. Dofetilide 250 MCG Oral Capsule; TAKE 1 CAPSULE EVERY 12 HOURS; Last Rx:[id number] Ordered 4. Metoclopramide HCl - 5 MG Oral Tablet; TAKE 1 TABLET BY MOUTH THREE TIMES DAILY WITH MEALS NEEDED; Therapy: 10Sep2014 to (Evaluate:29Oct2017) Requested for: 19Crm4823; Last Rx:[id number] Ordered 5. Metoprolol Tartrate 50 MG Oral Tablet; TAKE 1/2 TABLET TWICE DAILY; Therapy: (Recorded:99Rhb0202) to Recorded 6. Polyethylene Glycol 3350 Oral Powder; take 17 grams in 8 ounces of fluid once daily as needed for constipation; Therapy: 01Jul2017 to (Evaluate:27May2018); Last Rx:[id number] Ordered 7. Warfarin Sodium 5 MG Oral Tablet; Take as directed by ACC; Therapy: 07Ljp1278 to (Evaluate:28May2018) Requested for: 02Jun2017 Recorded Allergies 1. Penicillins 2. Sulfa Drugs PENICILLIN AND SULFA. Immunizations Prevnar in 2016. Pneumovax in 2009. Tetanus in 2013. Shingles in 2009. Vitals Recorded: 09Nkh5864 08:20AM Systolic 144 Diastolic 85 Heart Rate [...] Casey Berry DO; Sep 20 2017 7:51AM SOLIDWORKS MECHANICAL DESIGNER documented in this encounter Plan of Treatment Not on file documented as of this encounter Visit Diagnoses Not on filedocumented in this encounter Care Teams Substance Abuse Prevention Coordinator Relationship Specialty Start Date End Date Casey Berry II, DO PCP - General 11/22/06 08/17/19 Stephani Aleman MD PCP - General Family Medicine 08/18/19 09/16/20 Bianka Loear CNP [address] [place] [address] 2 [place] [phone] PCP - General Nurse Practitioner Family 09/17/2001/10 [place] [address] [place] [phone] PCP - General Electrophysiology 02/23/22 03/09/22 Desiree Patrick MD [address] [place] [address] 08/09/17 Farrah Nicole APRN,SNUFF CONTAINER INSPECTOR [address] [place] [address] 08/09/17 Bry Echevarria MD [address] [place] [address] 08/09/17 Casey Berry II, DO 08/09/17 Shruti Vergara RN RN Registered Nurse 08/27/20 documented as of this encounter Additional Source Comments PLEASE NOTE: Replies to this message will not be received.[facility]
--- OUTSIDE RECORDS SUMMARY | 2024-02-13 00:17 | XMS_ITS | Encounter Summary ---
Author Organization [facility] Address [address] [place] [address] Care Team Providers Care Glost Tile Sorter Name Role Phone Jamal CARLISLE DO, Robert William Primary Care Provide r Unavailable Desiree Patrick MD Unavailable Farrah Nicole APRN,GOODYEAR WELTER Unavailable Bry Echevarria MD Unavailable [phone] Jamal CARLISLE DO, Robert William Unavailable Unav Stephani Diaz MD Primary Care Provider Shruti Vergara RN Unavailable Unavailable Bianka Loera CNP Primary Care Provider [phone] Desiree Patrick MD Primary Care P rovider Encounter Details Date Type Department Care Team (Late st Contact Info) Description 09/08/[address] [facility] [address] [place] [address] Casey Berry II, DO Social History Tobacco [...] DAILY CBC; Status:Resulted - Requires Verification; Done: 31Hbl6204 09:12AM Comprehensive Metabolic Panel; Status:Resulted - Requires Verification; Done: 63Yty8055 09:12AM Lipid Panel; Status:Resulted - Requires Verification; Done: 08Sep2018 09:12AM Vitamin D Total [facility]; Status:Resulted - Requires Verification; Done: 08Sep2018 09:12AM Ataxia Drawing Fee; Status:Complete; Done: 08Sep2018 Balance Center Consult Consult Only Evaluation and Treatment Status: Hold For - Required information Requested for: 03Lhy0898 Phone Number to Contact Patient: : See chart to Provider, Practice or Agency: : [facility] Folate; Status:Resulted - Requires Verification; Done: 08Sep2018 [...] 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 HEALTH CARE MAINTENANCE: Colonoscopy in 2009, due in 2019. Current Meds 1. Dofetilide 250 MCG Oral Capsule; TAKE 1 CAPSULE EVERY 12 HOURS; Last Rx:[id number] Ordered 2. Jantoven 5 MG Oral Tablet; TAKE 1 1/2 TABLET BY MOUTH ON WEDNESDAYS, AND 1 TABLET BY MOUTH ALL OTHER DAYS OF THE WEEK DIRECTED; Therapy: 13Apr2018 to (Evaluate:28Sep2018) Requested for: 07Oaq8127; Last Rx:[id number] Ordered 3. Lisinopril 10 MG Oral Tablet; TAKE ONE TABLET DAILY; Therapy: 18Oct2017 to Recorded 4. Metoclopramide HCl - 5 MG Oral Tablet; TAKE 1 TABLET BY MOUTH THREE TIMES DAILY WITH MEALS NEEDED; Therapy: 10Sep2014 to (Evaluate:07Rfr7920) Requested for: 13Iif9458; Last Rx:[id number] Ordered 5. Oxybutynin Chloride ER 10 MG Oral Tablet Extended Release 24 Hour; TAKE 1 TABLET DAILY; Therapy: 74Guu4560 to (Evaluate:58Mbf0547) Requested for: 83Yeo4827; Last Rx:17Pft4066 Ordered 6. Polyethylene Glycol 3350 Oral Powder; take 17 grams in 8 ounces of fluid once daily as needed for constipation; Therapy: 35Xci0136 to (Evaluate:27May2018); Last Rx:[id number] Ordered 7. Sildenafil Citrate 100 MG Oral Tablet; Take 1/2-1 tab 1 hour before sexual activity; Therapy: 86Ril4164 to (Last Rx:[id number]) Requested for: 24Pph0217 Ordered 8. Triamcinolone Acetonide 0.1 % External Lotion; APPLY 2-3 TIMES DAILY TO AFFECTED AREA(S); Therapy: 47Rki0302 to (Last Rx:33Bqw6670) Requested for: 96Gld1829 Ordered Allergies 1. Penicillins 2. Sulfa Drugs [...] Prostate firm, no masses, nontender. Results/Data CBC 21Hdt1916 09:12AM Jamal Casey FASTING Test Name Result [...] 0.9 L 1.0-4.7 Vitamin D Total [facility] 73Sfk2634 09:12 Casey Berry Test Name Result Flag Reference Vitamin D Total - [facility] 20.9 ng/ml L 30-100 Deficiency <10ng/mL Insufficiency 10-29 ng/mL Sufficiency 30-100 ng/mL Possible Toxicity >100 ng/mL TSH [id number] 09:12 Casey Berry FASTING Test Name Result Flag Reference TSH 1.670 uIU/ml 0.30-4.70 Vitamin B12 08Sep2018 09:12AM Casey Berry Test Name Result Flag Reference Vitamin B12 382 pg/ml 200-1000 Folate 47Zpf1182 09:12AM Casey Berry Test Name Result Flag Reference Folate >20.0 ng/ml H 6.6-19.9 Signatures Casey Berry II, D.Veena/jaj-28 REVISED NOTE 09/12/2018/naomie Electronically signed by : Casey Berry DO; Sep 09 2018 11:14AM EMPLOYMENT OFFICER Electronically signed by : Casey Berry DO; Sep 12 2018 9:09AM EMPLOYMENT OFFICER documented in this encounter Plan of Treatment Not on file documented as of this encounter Visit Diagnoses Not on filedocumented in this encounter Care Teams Glost Tile Sorter Relationship Specialty Start Date End Date Casey Berry II, DO PCP - General 11/22/06 08/17/19 Stephani Aleman MD PCP - General Family Medicine 08/18/19 09/16/20 Bianka Loera IRON MINER [address] [place] [phone] PCP - General Nurse Practitioner Family 09/17/20 712/31 Desiree Patrick MD [address] [place] [address] PCP - General Electrophysiology 02/23/22 03/09/22 Desiree Patrick MD [address] [place] [address] 08/09/17 Farrah Nicole APRN,GOODYEAR WELTER [address] [place] [address] 08/09/17 Bry Echevarria MD [facility] [place] [address] 08/09/17 Casey Berry II, DO 08/09/17 Shruti Vergara RN RN Registered Nurse 08/27/20 documented as of this encounter Additional Source Comments PLEASE NOTE: Replies to this message will not be received.[facility]
--- OUTSIDE RECORDS SUMMARY | 2024-02-13 00:17 | XMS_ITS | Encounter Summary ---
Author Organization [facility] Address [address] [place] [address] Care Team Providers Care Sanding Machine Tender Automatic Name Role Phone Jamal CARLISLE DO, Robert William Primary Care Provide r Unavailable Desiree Patrick MD Unavailable Farrah Nicole APRN,VICE PRESIDENT COMMERCIAL BANK Unavailable Bry Echevarria MD Unavailable Jamal CARLISLE DO, Robert William Unavailable Unav Stephani Diaz MD Primary Care Provider Shruti Vergara RN Unavailable Unavailable Bianka Loera CNP Primary Care Provider Desiree Patrick MD Primary Care P rovider Encounter Details Date Type Department Care Team (Late st Contact Info) Description 07/22/2018 Historical Conversion [facility] [address] [place] [address] Moon Maloney MD Social History Tobacco Use [...] Comments Blood Pressure 120/58 07/22/2018 12:00 AM SURGICAL APPLIANCE FITTER Pulse - - Temperature - - Respiratory Rate - - Oxygen Saturation - - Inhaled Oxygen Concentration - - Weight 93.8 kg (206 lb 12.7 oz) 019 12:00 AM SURGICAL APPLIANCE FITTER Height - - Body Mass Index 27.28 06/20/2018 8:23 AM SURGICAL APPLIANCE FITTER documented in this encounter Functional Status Functional [...] on filedocumented in this encounter Care Teams Sanding Machine Tender Automatic Relationship Specialty Start Date End Date Casey Berry II, DO PCP - General 11/22/06 08/17/19 Stephani Aleman MD PCP - General Family Medicine 08/18/19 09/16/20 Bianka Loera CNP [address] [facility] [address] [place] [phone] PCP - General Nurse Practitioner Family 09/17/2001/10 [place] [address] [place] [address] PCP - General Electrophysiology 02/23/22 03/09/22 Desiree Patrick MD [address] [place] [address] 08/09/17 Farrah Nicole APRN,VICE PRESIDENT COMMERCIAL BANK [address] [place] [address] 08/09/17 Bry Echevarria MD [address] [place] [address] 08/09/17 Casey Berry II, DO 08/09/17 Shruti Vergara RN RN Registered Nurse 08/27/20 documented as of this encounter Additional Source Comments PLEASE NOTE: Replies to this message will not be received.[facility] and [facility]
--- OUTSIDE RECORDS SUMMARY | 2024-02-13 00:17 | XMS_ITS | Encounter Summary ---
Author Organization [employer] Address [address] [place] [address] Care Team Providers Care Land Economist Name Role Phone Jamal CARLISLE DO, Robert William Primary Care Provide r Unavailable Desiree Patrick MD Unavailable Farrah Nicole APRN,CARRIER OPERATOR Unavailable [phone] Bry Echevarria MD Unavailable [phone] Jamal CARLISLE DO, Robert William Unavailable Unav Stephani Diaz MD Primary Care Provider [phone] Shruti Vergara RN Unavailable Unavailable Bianka Loera CNP Primary Care Provider Desiree Patrick MD Primary Care P rovider Encounter Details Date Type Department Care Team (Late st Contact Info) Description 09/19/2018 Historical Conversion [facility] Family Medicine [address] [place] [phone] Trish Barone, PT Social History Tobacco Use [...] by:Trish Barone PT Oct 12 2018 5:27PM VETERINARY INSPECTOR AMENDMENTS: 1. Patient received 4 feet of green theraband on this date of service. Electronically signed by:Trish Barone PT Oct 12 2018 5:28PM VETERINARY INSPECTOR * Trish Barone, PT - 10/03/2018 12:00 [...] per day with the dogs. He attends [employer] with his 2 times a week. OBJECTIVE: [...] by:Trish Barone PT Oct 03 2018 1:23PM VETERINARY INSPECTOR * Trish Barone, PT - 09/19/2018 12:00 AM CDT CRISTIAN BLEDSOE : 1945 HX: [id number] DOS: 09/19/2018 REFERRING PROVIDER: Csaey Berry D.O. PRIMARY DIAGNOSIS: Ataxia. 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 He is currently [...] PATIENT RECEIVED: Patient received 30 minutes of qsqm-kf-ksut evaluation with three or more comorbidities and three or more elements addressed. Clinical presentation is evolving and clinical complexity is moderate. Patient also received canalith repositioning maneuvers on this date. Trish Barone, PT, [place] #[id number] Electronically signed by:Trish Barone PT Sep 26 2018 8:37AM VETERINARY INSPECTOR documented in this encounter Plan of Treatment Not on file documented as of this encounter Visit Diagnoses Not on filedocumented in this encounter Care Teams Land Economist Relationship Specialty Start Date End Date Casey Berry II, DO PCP - General 11/22/06 08/17/19 Stephani Aleman MD PCP - General Family Medicine 08/18/19 09/16/20 Bianka Loera CNP [address] [place] [address] [address] [place] [phone] PCP - General Nurse Practitioner Family 09/17/2001/10 Desiree Patrick MD [address] [place] [address] PCP - General Electrophysiology 02/23/22 03/09/22 Desiree Patrick MD [address] [place] [address] 08/09/17 Farrah Nicole APRN,CARRIER OPERATOR [address] [place] [address] 08/09/17 Bry Echevarria MD [facility] [place] [address] 08/09/17 Casey Berry II, DO 08/09/17 Shruti Vergara RN RN Registered Nurse 08/27/20 documented as of this encounter Additional Source Comments PLEASE NOTE: Replies to this message will not be received.[facility] and [facility]
--- OUTSIDE RECORDS SUMMARY | 2024-02-13 00:17 | XMS_ITS | Encounter Summary ---
Author Organization [employer] Address [address] [place] [address] Care Team Providers Care Product Owner Name Role Phone Jamal CARLISLE DO, Robert William Primary Care Provide r Unavailable Desiree Patrick MD Unavailable Farrah Nicole APRN,MARINE DIESEL TECHNICIAN Unavailable Bry Echevarria MD Unavailable [phone] Jamal CARLISLE DO, Robert William Unavailable Unav Stephani Diaz MD Primary Care Provider Shruti Vergara RN Unavailable Unavailable Bianka Loera CNP Primary Care Provider [phone] Desiree Patrick MD Primary Care P rovider Encounter Details Date Type Department Care Team (Late st Contact Info) Description 08/31/2017 Historical Conversion [facility] Family Medicine [address] [facility] [place] [address] Desiree Rubi PAC [address] [place] [address] Social History Tobacco Use Types [...] Comments Blood Pressure 112/60 08/31/2017 12:00 AM PATIENT TRANSPORTATION DRIVER Pulse - - Temperature - - Respiratory Rate - - Oxygen Saturation - - Inhaled Oxygen Concentration - - Weight 95.9 kg (211 lb 6.7 oz) 08/31/2017 12:00 AM PATIENT TRANSPORTATION DRIVER Height - - Body Mass Index 27.89 07/27/2017 2:42 PM PATIENT TRANSPORTATION DRIVER documented in this encounter Functional Status [...] on filedocumented in this encounter Care Teams Product Owner Relationship Specialty Start Date End Date Casey Berry II, DO PCP - General 11/22/06 08/17/19 Stephani Aleman MD PCP - General Family Medicine 08/18/19 09/16/20 Bianka Loera CNP [address] [place] [address] 2 [place] [address] PCP - General Nurse Practitioner Family 09/17/20 712/31 Desiree Patrick MD [address] [place] [address] PCP - General Electrophysiology 02/23/22 03/09/22 Desiree Patrick MD [address] [place] [address] 08/09/17 Farrah Nicole APRN,MARINE DIESEL TECHNICIAN [address] [facility] [place] [address] 08/09/17 Bry Echevarria MD [address] [place] [address] [place] [address] 08/09/17 Casey Berry II, DO 08/09/17 Shruti Vergara RN RN Registered Nurse 08/27/20 documented as of this encounter Additional Source Comments PLEASE NOTE: Replies to this message will not be received.[facility] and [facility]
--- OUTSIDE RECORDS SUMMARY | 2024-02-13 00:17 | XMS_ITS | Encounter Summary ---
Author Organization [employer] Address [address] [place] [address] Care Team Providers Care Beater Operator Name Role Phone Jamal CARLISLE DO, Robert William Primary Care Provide r Unavailable Desiree Patrick MD Unavailable Farrah Nicole APRN,LEG ASSEMBLER Unavailable Bry Echevarria MD Unavailable Jamal CARLISLE DO, Robert William Unavailable Unav Stephani Diaz MD Primary Care Provider Shruti Vergara RN Unavailable Unavailable Bianka Loera CNP Primary Care Provider Desiree Patrick MD Primary Care P rovider Encounter Details Date Type Department Care Team (Late st Contact Info) Description 06/13/2018 Historical Conversion [facility] [address] [facility] [address] Bry Echevarria MD [address] [place] [address] Social History Tobacco Use Types [...] Comments Blood Pressure 120/78 06/13/2018 12:00 AM MECHANICAL SYSTEM TECHNICIAN Pulse - - Temperature - - Respiratory Rate - - Oxygen Saturation - - Inhaled Oxygen Concentration - - Weight 93.8 kg (206 lb 12.7 oz) 018 12:00 AM MECHANICAL SYSTEM TECHNICIAN Height - - Body Mass Index 27.29 05/18/2018 8:54 AM MECHANICAL SYSTEM TECHNICIAN documented in this encounter Functional Status [...] on filedocumented in this encounter Care Teams Beater Operator Relationship Specialty Start Date End Date Casey Berry II, DO PCP - General 11/22/06 08/17/19 Stephani Aleman MD PCP - General Family Medicine 08/18/19 09/16/20 Bianka Loera CNP [address] [place] [address] 2 [place] [address] PCP - General Nurse Practitioner Family 09/17/2001/10 Desiree Patrick MD [address] [place] [address] PCP - General Electrophysiology 02/23/22 03/09/22 Desiree Patrick MD [address] [place] [address] 08/09/17 Farrah Nicole APRN,LEG ASSEMBLER [address] [place] [address] 08/09/17 Bry Echevarria MD [address] [place] [address] 08/09/17 Casey Berry II, DO 08/09/17 Shruti Vergara RN RN Registered Nurse 08/27/20 documented as of this encounter Additional Source Comments PLEASE NOTE: Replies to this message will not be received.[facility] and [facility]
--- OUTSIDE RECORDS SUMMARY | 2024-02-13 00:17 | XMS_ITS | Encounter Summary ---
Author Organization [employer] Address [address] [place] [address] Care Team Providers Care Auction Assistant Name Role Phone Jamal CARLISLE DO, Robert William Primary Care Provide r Unavailable Desiree Patrick MD Unavailable Farrah Nicole APRN,TEST OPERATOR Unavailable Bry Echevarria MD Unavailable Jamal CARLISLE DO, Robert William Unavailable Unav Stephani Diaz MD Primary Care Provider Shruti Vergara RN Unavailable Unavailable Bianka Loera CNP Primary Care Provider Desiree Patrick MD Primary Care P rovider Encounter Details Date Type Department Care Team (Late st Contact Info) Description 09/07/2017 Historical Conversion [facility] Family Medicine [address] [place] [address] Casey Berry II, DO Social History Tobacco [...] Comments Blood Pressure 144/85 09/07/2017 12:00 AM RESEARCH/PROGRAM DIRECTOR Pulse - - Temperature - - Respiratory Rate - - Oxygen Saturation - - Inhaled Oxygen Concentration - - Weight 94.3 kg (207 lb 14.3 oz) 018 12:00 AM RESEARCH/PROGRAM DIRECTOR Height 185.5 cm (6' 1.03) 09/07/2017 1 2:00 AM RESEARCH/PROGRAM DIRECTOR Body Mass Index 27.4 09/07/2017 12:00 AM RESEARCH/PROGRAM DIRECTOR documented in this encounter Functional Status Functional [...] on filedocumented in this encounter Care Teams Auction Assistant Relationship Specialty Start Date End Date Casey Berry II, DO PCP - General 11/22/06 08/17/19 Stephani Aleman MD PCP - General Family Medicine 08/18/19 09/16/20 Bianka Loera CNP [address] [facility] [address] [place] [address] PCP - General Nurse Practitioner Family 09/17/2001/10 [place] [address] [place] [address] PCP - General Electrophysiology 02/23/22 03/09/22 Desiree Patrick MD [address] [place] [address] 08/09/17 Farrah Nicole APRN,TEST OPERATOR [address] [place] [address] 08/09/17 Bry Echevarria MD [address] [place] [address] [place] [address] 08/09/17 Casey eBrry II, DO 08/09/17 Shruti Vergara RN RN Registered Nurse 08/27/20 documented as of this encounter Additional Source Comments PLEASE NOTE: Replies to this message will not be received.[facility] and [facility]
--- OUTSIDE RECORDS SUMMARY | 2024-02-13 00:17 | XMS_ITS | Encounter Summary ---
Author Organization [employer] Address [address] [place] [address] Care Team Providers Care Tacking Stitch Remover Name Role Phone Jamal CARLISLE DO, Robert William Primary Care Provide r Unavailable Desiree Patrick MD Unavailable Farrah Nicole APRN,MERCHANDISING INTERN Unavailable [phone] Bry Echevarria MD Unavailable Jamal CARLISLE DO, Robert William Unavailable Unav Stephani Diaz MD Primary Care Provider [phone] Shruti Vergara RN Unavailable Unavailable Bianka Loera CNP Primary Care Provider Desiree Patrick MD Primary Care P rovider Encounter Details Date Type Department Care Team (Late st Contact Info) Description 03/01/2018 Historical Conversion [facility] Family Medicine [address] [facility] 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 He [...] think he normally sees Farrah Jacobo APRN, MERCHANDISING INTERN, at the [facility], so we will try to reach [...] meantime we will check with Cardiology in [place] about the option of Viagra or Cialis [...] P.A.-C./jmf- 24 cc: Jose Winslow M.D./Radiation Oncology [facility] cc: Casey Berry D.O./[facility] cc: Moon Maloney M.D./[facility] Electronically signed by:Desiree Rubi PA-C Mar 04 2018 1:27PM FASHION ILLUSTRATOR documented in this encounter Plan of Treatment Not on file documented as of this encounter Visit Diagnoses Not on filedocumented in this encounter Care Teams Tacking Stitch Remover Relationship Specialty Start Date End Date Casey Berry II, DO PCP - General 11/22/06 08/17/19 Stephani Aleman MD PCP - General Family Medicine 08/18/19 09/16/20 Bianka Loera ARCHITECTURAL ENGINEERING TEACHER [address] [place] [address] PCP - General Nurse Practitioner Family 09/17/20 712/31 Desiree Patrick MD [address] [place] [address] PCP - General Electrophysiology 02/23/22 03/09/22 Desiree Patrick MD [address] [place] [address] 08/09/17 Farrah Nicole APRN,MERCHANDISING INTERN [address] [place] [address] 08/09/17 Bry Echevarria MD [facility] [place] [address] 08/09/17 Casey Berry II, DO 08/09/17 Shruti Veragra RN RN Registered Nurse 08/27/20 documented as of this encounter Additional Source Comments PLEASE NOTE: Replies to this message will not be received.[facility] and [facility], [facility]
--- OUTSIDE RECORDS SUMMARY | 2024-02-13 00:17 | XMS_ITS | Encounter Summary ---
Author Organization [employer] Address [address] [place] [address] Care Team Providers Care Dry Placer Machine Operator Name Role Phone Jamal CARLISLE DO, Robert William Primary Care Provide r Unavailable Desiree Patrick MD Unavailable Farrah Nicole APRN,STUDIO PRODUCER Unavailable Bry Echevarria MD Unavailable [phone] Jamal CARLISLE DO, Robert William Unavailable Unav Stephani Diaz MD Primary Care Provider Shruti Vergara RN Unavailable Unavailable Bianka Loera CNP Primary Care Provider [phone] Desiree Patrick MD Primary Care P rovider Encounter Details Date Type Department Care Team (Late st Contact Info) Description 06/23/2018 Historical Conversion [facility] Family Medicine [address] [place] [address] Moon Maloney MD Social History Tobacco Use [...] Comments Blood Pressure 120/62 06/23/2018 12:00 AM CRM TECHNICAL LEAD Pulse - - Temperature - - Respiratory Rate - - Oxygen Saturation - - Inhaled Oxygen Concentration - - Weight 93.5 kg (206 lb 2.1 oz) 06/23/2018 12:00 AM CRM TECHNICAL LEAD Height - - Body Mass Index 27.2 06/20/2018 8:23 AM CRM TECHNICAL LEAD documented in this encounter Functional Status Functional [...] on filedocumented in this encounter Care Teams Dry Placer Machine Operator Relationship Specialty Start Date End Date Casey Berry II, DO PCP - General 11/22/06 08/17/19 tSephani Aleman MD PCP - General Family Medicine 08/18/19 09/16/20 Bianka Loera CNP [address] [facility] [address] [place] [phone] PCP - General Nurse Practitioner Family 09/17/2001/10 [place] [address] [place] [phone] PCP - General Electrophysiology 02/23/22 03/09/22 Desiree Patrick MD [address] [place] [address] 08/09/17 Farrah Nicole APRN,STUDIO PRODUCER [address] [place] [address] 08/09/17 Bry Echevarria MD [address] [place] [address] 08/09/17 Casey Berry II, DO 08/09/17 Shruti Vergara RN RN Registered Nurse 08/27/20 documented as of this encounter Additional Source Comments PLEASE NOTE: Replies to this message will not be received.[facility] and [facility]
--- OUTSIDE RECORDS SUMMARY | 2024-02-13 00:17 | XMS_ITS | Encounter Summary ---
Author Organization [employer] Address [address] [place] [address] Care Team Providers Care Special Education Math Teacher Name Role Phone Jamal CARLISLE DO, Robert William Primary Care Provide r Unavailable Desiree Patrick MD Unavailable Farrah Nicole APRN,BATTERY TESTER Unavailable Bry Echevarria MD Unavailable [phone] Jamal CARLISLE DO, Robert William Unavailable Unav Stephani Diaz MD Primary Care Provider [phone] Shruti Vergara RN Unavailable Unavailable Bianka Loera CNP Primary Care Provider Desiree Patrick MD Primary Care P rovider Encounter Details Date Type Department Care Team (Late st Contact Info) Description 06/23/2018 Historical Conversion [facility] Family Medicine [address] [place] [phone] Moon Maloney MD Social History Tobacco Use [...] MD - 07/22/2018 12:00 AM CST UROLOGY [facility] CRISTIAN BLEDSOE : 1945 HX: [id number] DOS: 07/22/2018 SUBJECTIVE: Cristian saw me on [...] Moon Maloney M.D./la-15 cc: Casey Berry II, D.O./[facility] Electronically signed by:Moon Maloney M.D. Jul 27 2018 9:15AM SUPERVISOR INSULATION * Moon Maloney MD - 06/23/2018 12:00 AM CST UROLOGY CRISTIAN BLEDSOE : [id number][id number] 06/23/2018 SUBJECTIVE: Cristian comes to see me [...] short-term ADT. He is not on any GENERATOR REBUILDER. His most recent PSA was 0.051 so [...] Moon K. Gemar, M.D./mdh-14 cc: Dr. Kofi Navarro[facility] Electronically signed by:Moon Maloney M.D. Jun 24 2018 12:40PM SUPERVISOR INSULATION documented in this encounter Plan of Treatment Not on file documented as of this encounter Visit Diagnoses Not on filedocumented in this encounter Care Teams Special Education Math Teacher Relationship Specialty Start Date End Date Casey Berry II, DO PCP - General 11/22/06 08/17/19 Stephani Aleman MD PCP - General Family Medicine 08/18/19 09/16/20 Bianka Loera CNP [address] [facility] [address] [place] [phone] PCP - General Nurse Practitioner Family 09/17/2001/10 Desiree Patrick MD [address] [place] [address] PCP - General Electrophysiology 02/23/22 03/09/22 Desiree Patrick MD [address] [place] [address] 08/09/17 Farrah Nicole APRN,BATTERY TESTER [address] [place] [address] 08/09/17 Bry Echevarria MD [facility] [place] [address] 08/09/17 Casey Berry II, DO 08/09/17 Shruti Vergara RN RN Registered Nurse 08/27/20 documented as of this encounter Additional Source Comments PLEASE NOTE: Replies to this message will not be received.[facility] and [facility]
--- OUTSIDE RECORDS SUMMARY | 2024-02-13 00:17 | XMS_ITS | Encounter Summary ---
Author Organization [employer] Address [address] [place] [address] Care Team Providers Care Special Needs Caregiver Name Role Phone Jamal CARLISLE DO, Robert William Primary Care Provide r Unavailable Desiree Patrick MD Unavailable Farrah Nicole APRN,TAR CHASER Unavailable Bry Echevarria MD Unavailable Jamal CARLISLE DO, Robert William Unavailable Unav Stephani Diaz MD Primary Care Provider [phone] Shruti Vergara RN Unavailable Unavailable Bianka Loera CNP Primary Care Provider [phone] Desiree Patrick MD Primary Care P rovider Encounter Details Date Type Department Care Team (Late st Contact Info) Description 07/01/2017 Historical Conversion [facility] Family [facility] [address] [facility] [place] [address] Bry Echevarria MD [address] [place] [address] Social History Tobacco Use Types [...] Comments Blood Pressure 136/70 07/01/2017 12:00 AM EDUCATIONAL AUDIOLOGIST Pulse - - Temperature - - Respiratory Rate - - Oxygen Saturation - - Inhaled Oxygen Concentration - - Weight 97.6 kg (215 lb 2.7 oz) 07/01/2017 12:00 AM EDUCATIONAL AUDIOLOGIST Height - - Body Mass Index 28.39 06/21/2017 2:27 PM EDUCATIONAL AUDIOLOGIST documented in this encounter Functional Status Functional [...] filedocumented in this encounter Care Teams Special Needs Caregiver Relationship Specialty Start Date End Date Casey Berry II, DO PCP - General 11/22/06 08/17/19 Stephani Aleman MD PCP - General Family Medicine 08/18/19 09/16/20 Bianka Loera CNP [address] [facility] [address] [place] [address] PCP - General Nurse Practitioner Family 09/17/2001/10 Desiree Patrick MD [address] [place] [address] PCP - General Electrophysiology 02/23/22 03/09/22 Desiree Patrick MD [address] [place] [address] 08/09/17 Farrah Nicole APRN,TAR CHASER [address] [place] [address] 08/09/17 Bry Echevarria MD [address] [place] [address] [place] [address] 08/09/17 Casey Berry II, DO 08/09/17 Shruti Vergara RN RN Registered Nurse 08/27/20 documented as of this encounter Additional Source Comments PLEASE NOTE: Replies to this message will not be received.[facility] and [facility]
--- OUTSIDE RECORDS SUMMARY | 2024-02-13 00:17 | XMS_ITS | Encounter Summary ---
Author Organization [employer] Address [address] [place] [address] Care Team Providers Care Special Education Classroom Aide Name Role Phone Jamal CARLISLE DO, Robert William Primary Care Provide r Unavailable Desiree Patrick MD Unavailable Farrah Nicole APRN,LPN CMA Unavailable Bry Echevarria MD Unavailable Jamal CARLISLE DO, Robert William Unavailable Unav Stephani Diaz MD Primary Care Provider Shruti Vergara RN Unavailable Unavailable Bianka Loera CNP Primary Care Provider Desiree Patrick MD Primary Care P rovider Encounter Details Date Type Department Care Team (Late st Contact Info) Description 06/13/2018 Historical Conversion [facility] Family Medicine [address] [place] [phone] Social History Tobacco Use Types Packs/Day Years [...] as of this encounter Progress Notes * [facility], GENERICPROVIDER - 11/02/2018 12:00 AM CDT Balance [...] week. Joan Everett PTA/Kassy Barone PT, [place] #[id number] Electronically signed by:Joan Everett PTA Nov 02 2018 2:00PM HEAD OF MERCHANDISE BUYING Helicopter Mechanic/Recorder Electronically signed by:Trish Barone PT Nov 07 2018 4:43PM HEAD OF MERCHANDISE BUYING * [facility] - 10/26/2018 12:00 AM [...] by:Joan Everett PTA Oct 28 2018 7:51AM HEAD OF MERCHANDISE BUYING Helicopter Mechanic/Recorder Electronically signed by:Trish Barone PT Oct 31 2018 7:01PM HEAD OF MERCHANDISE BUYING * [facility] [place] - 09/19/2018 12:00 AM CDT PHYSICAL THERAPY STUDENT NOTE BALANCE EVALUATION CRISTIAN BLEDSOE : 1945 HX: [id number] DOS: 09/19/2018 REFERRING PROVIDER: Casey Berry D.O. 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 He is currently [...] pursuit in both right and left gaze blankneship. Convergence/Divergence: Normal. Vestibular: Positional testing (Frenzel goggles [...] PATIENT RECEIVED: Patient received 30 minutes of vlaw-de-qabs evaluation with three or more comorbidities and three or more elements addressed. Clinical presentation is evolving and clinical complexity is moderate. Patient also received canalith repositioning maneuvers on this date. Lennox LEAHY/Trish Barone, PT #[id number] / lb-12 cc: Casey Berry D.O., [facility] Electronically signed by:Lennox Malagon Sep 20 2018 7:56PM HEAD OF MERCHANDISE BUYING Co-author Electronically signed by:Lennox Malagon Sep 27 2018 8:39AM HEAD OF MERCHANDISE BUYING Co-author Electronically signed by:Trish Barone PT Oct 02 2018 5:18PM HEAD OF MERCHANDISE BUYING documented in this encounter Procedure Notes * [facility] - 10/26/2018 12:00 AM CDTAssociated Order(s): [...] by:Tiffani Carrero RN Oct 26 2018 4:16PM HEAD OF MERCHANDISE BUYING * [facility] - 10/11/2018 12:00 AM CDTAssociated Order(s): ANTICOAGULATION [facility] Name: CRISTIAN BLEDSOE : 1945 DOS: 10/11/2018 [...] by:Tiffani Carrero RN Oct 11 2018 3:39PM HEAD OF MERCHANDISE BUYING * [facility] - 09/07/2018 12:00 AM CSTAssociated Order(s): ANTICOAGULATION [facility] Name: CRISTIAN BLEDSOE : 1945 DOS: 09/07/2018 [...] by:Tiffani Carrero RN Sep 07 2018 3:31PM HEAD OF MERCHANDISE BUYING * [facility] - 08/22/2018 12:00 AM CSTAssociated Order(s): ANTICOAGULATION Anticoagulation [facility] Name: CRISTIAN BLEDSOE : 1945 DOS: 08/22/2018 [...] by:Tiffani Carrero RN Aug 22 2018 2:48PM HEAD OF MERCHANDISE BUYING * [facility], GENERICPROVIDER - 07/13/2018 12:00 AM CSTAssociated Order(s): ANTICOAGULATION [facility] Name: CRISTIAN BLEDSOE : 1945 DOS: 07/13/2018 [...] by:Tiffani Carrero RN Jul 13 2018 2:41PM HEAD OF MERCHANDISE BUYING * [facility] - 06/13/2018 12:00 AM CSTAssociated Order(s): [...] Deborah Mandel RN; Jun 13 2018 12:37PM HEAD OF MERCHANDISE BUYING documented in this encounter Plan of Treatment Not on file documented as of this encounter Procedures Procedure Name Priority Date/Time Associated Diagnosis Comments ANTICOAGULATION 10/26/2018 ANTICOAGULATION 10/11/2018 ANTICOAGULATION 09/07/2018 ANTICOAGULATION 08/22/2018 ANTICOAGULATION 07/13/2018 ANTICOAGULATION 06/13/2018 documented in this encounter Results * ANTICOAGULATION (10/26/2018) Narrative Procedure Note [facility] - 10/26/2018 12:00 AM CDT Name: [...] by:Tiffani Carrero RN Oct 26 2018 4:16PM HEAD OF MERCHANDISE BUYING [facility] OTHER * ANTICOAGULATION (10/11/2018) Narrative Procedure Note [facility], GENERICPROGINADER - 10/11/2018 12:00 AM CDT [facility]tico[facility] Name: CRISTIAN BLEDSOE : 1945 DOS: 10/11/2018 [...] by:Tiffani Carrero RN Oct 11 2018 3:39PM HEAD OF MERCHANDISE BUYING [facility] OTHER * ANTICOAGULATION (09/07/2018) Narrative Procedure Note [facility] - 09/07/2018 12:00 AM CST Anticoagulation [facility] Name: CRISTIAN BLEDSOE : 1945 DOS: 09/07/2018 [...] by:Tiffani Carrero RN Sep 07 2018 3:31PM HEAD OF MERCHANDISE BUYING [facility] OTHER * ANTICOAGULATION (08/22/2018) Narrative Procedure Note [facility] - 08/22/2018 12:00 AM CST Anticoagulation [facility] Name: CRISTIAN BLEDSOE : 1945 DOS: 08/22/2018 [...] by:Tiffani Carrero RN Aug 22 2018 2:48PM HEAD OF MERCHANDISE BUYING [facility] OTHER * ANTICOAGULATION (07/13/2018) Narrative Procedure Note [facility] - 07/13/2018 12:00 AM CST [facility] Name: CRISTIAN BLEDSOE : 1945 DOS: 07/13/2018 [...] by:Tiffani Carrero RN Jul 13 2018 2:41PM HEAD OF MERCHANDISE BUYING [facility] OTHER * ANTICOAGULATION (06/13/2018) Narrative Procedure Note [facility] - 06/13/2018 12:00 AM CST [facility] Comments [...] Deborah Mandel RN; Jun 13 2018 12:37PM HEAD OF MERCHANDISE BUYING [facility] OTHER documented in this encounter Visit Diagnoses Not on filedocumented in this encounter Care Teams Special Education Classroom Aide Relationship Specialty Start Date End Date Casey Berry II, DO PCP - General 11/22/06 08/17/19 Stephani Aleman MD PCP - General Family Medicine 08/18/19 09/16/20 Bianka Loera CNP [address] [place] [phone] PCP - General Nurse Practitioner Family 09/17/2001/10 Desiree Patrick MD [address] [place] [address] PCP - General Electrophysiology 02/23/22 03/09/22 Desiree Patrick MD [address] [place] [address] 08/09/17 Farrah Nicole APRN,LPN CMA [address] [place] [address] 08/09/17 Bry Echevarria MD [facility] [place] [address] 08/09/17 Casey Berry II DO 08/09/17 Shruti Vergara, RN RN Registered Nurse 08/27/20 documented as of this encounter Additional Source Comments PLEASE NOTE: Replies to this message will not be received.[facility] and [facility]
--- OUTSIDE RECORDS SUMMARY | 2024-02-13 00:18 | XMS_ITS | Encounter Summary ---
Author Organization [employer] Address [address] [place] [address] Care Team Providers Care Lard Bleacher Name Role Phone Jamal CARLISLE DO, Robert William Primary Care Provide r Unavailable Desiree Patrick MD Unavailable Farrah Nicole APRN,NATUROPATHIC ONCOLOGY PROVIDER Unavailable Bry Echevarria MD Unavailable Jamal CARLISLE DO, Robert William Unavailable Unav Stehpani Diaz MD Primary Care Provider [phone] Shruti Vergara RN Unavailable Unavailable Bianka Loera CNP Primary Care Provider Desiree Patrick MD Primary Care P rovider Encounter Details Date Type Department Care Team (Late st Contact Info) Description 10/17/2016 Historical Conversion [facility] Family Medicine [address] [place] [address] Social History Tobacco Use Types Packs/Day Years [...] do you have serious difficulty hearing? Yes-slightly CROW 10/17/2016 Are you blind or do you [...] as of this encounter Nursing Notes * [facility] - 10/17/2016 12:00 AM CDT Rohan presented to Urgent Care with complaint of feeling like his heart is racing, he can feel it pounding and a tighness in his chest occurs when this happens. He was seen at [facility] 10 days ago for an episode [...] to be evaluatedin the Emergency Room at [facility]. Patient and his elected to go by private car with patients driving. Electronically signed by:Tammy Coronado RN Oct 17 2016 2:09PM COAL CRUSHER OPERATOR AMENDMENTS: 1. Patient declines shortness of breath, radiating neck pain, shoulderblade pain or sternal pain. Electronically signed by:Tammy Coronado RN Oct 17 2016 2:14PM COAL CRUSHER OPERATOR documented in this encounter Plan of Treatment Not on file documented as of this encounter Visit Diagnoses Not on filedocumented in this encounter Care Teams Lard Bleacher Relationship Specialty Start Date End Date Casey Berry II, DO PCP - General 11/22/06 08/17/19 Stephani Aleman MD PCP - General Family Medicine 08/18/19 09/16/20 Bianka Loera CNP [address] [place] [address] PCP - General Nurse Practitioner Family 09/17/2001/10 Desiree Patrick MD [address] [place] [address] PCP - General Electrophysiology 02/23/22 03/09/22 Desiree Patrick MD [address] [place] [address] 08/09/17 Farrah Nicole APRN,NATUROPATHIC ONCOLOGY PROVIDER [address] [place] [address] 08/09/17 Bry Echevarria MD [address] [place] [phone] 08/09/17 Casey Berry II, DO 08/09/17 Shruti Vergara, RN RN Registered Nurse 08/27/20 documented as of this encounter Additional Source Comments PLEASE NOTE: Replies to this message will not be received.[facility] and [facility]
--- OUTSIDE RECORDS SUMMARY | 2024-02-13 00:18 | XMS_ITS | Encounter Summary ---
Author Organization [employer] Address [address] [place] [address] Care Team Providers Care Certified Alcohol Counselor Name Role Phone Jamal CARLISLE DO, Robert William Primary Care Provide r Unavailable Desiree Patrick MD Unavailable Farrah Nicole APRN,BUCKLE ASSEMBLER Unavailable Byr Echevarria MD Unavailable Jamal CARLISLE DO, Robert William Unavailable Unav Stephani Diaz MD Primary Care Provider [phone] Shruti Vergara RN Unavailable Unavailable Bianka Loera CNP Primary Care Provider Desiree Patrick MD Primary Care P rovider Encounter Details Date Type Department Care Team (Late st Contact Info) Description 12/31/2016 Historical Conversion [facility] Family Medicine [address] [place] [address] Desiree Rubi PAC [address] [place] [address] Social History Tobacco Use Types [...] CST UROLOGY CRISTIAN LADI : 1945 HX: [id number] DOS: 08/31/2017 HISTORY OF PRESENT ILLNESS: Anurag is a 71-year-old gentleman who presents to the Urology clinic today. He previously had rubber nodularity on both sides of the prostate. He had a PSA velocitychange and his PCA3 test came back positive. A biopsy October 2016 showed a [place] 6 prostate cancerat the left base of the prostate involving 2% of the specimen. He also had [place] 7 cancer at the left mid-prostate involving 5% of the tissue, the right mid-prostate had [place] 7 cancer again involving 20% of the [...] 1. Patient has adenocarcinoma of the prostate [place] 7 disease. He is status post EBRT [...] by:Desiree Rubi PA-C Sep 02 2017 5:01PM CARTON WAXING MACHINE OPERATOR * Desiree Rubi - 03/30/2017 12:00 AM CDT UROLOGY CRISTIAN BLEDSOE : 1945 HX: [id number] DOS: 03/30/2017 HISTORY OF PRESENT ILLNESS: 71-year-old [...] involving 2% of thespecimen. He had a [place] 7 cancer at the left mid prostate involving less than 5% of the tissue. The right mid prostate he had [place] 7 cancer involving 20% of the tissue in that area. [facility] [place] 7 cancer involving 5% of the specimen. [...] Mare Rubi P.A.-C./ cc: Dr. Moon Maloney [facility] Radha [facility]low [facility] Radiation Therapy Dept Dr. Casey Berry [facility] Radha Electronically signed by:Desiree Rubi PA-C Apr 02 2017 1:20PM CARTON WAXING MACHINE OPERATOR * Desiree Rubi - 12/31/2016 12:00 AM CDT UROLOGY CRISTIAN BLEDSOE : 1945 HX: [id number] DOS: 12/31/2016 HISTORY OF PRESENT ILLNESS: 71-year-old male who presents to the Urology clinic today. Hehad a velocity change with his PSA. On his prostate exam he had a rubbery nodularity on both sides.It was a symmetrical prostate. His PSA was monitored for a little while. In August he had a [employer] 3test and that came back positive. He [...] Rubi P.A.-C./anna 28 cc: Dr. Moon Maloney [facility] Radha Winslow [facility] Dr. Casey Berry [facility] Radha Electronically signed by:Desiree Rubi PA-C Jan 06 2017 4:31PM CARTON WAXING MACHINE OPERATOR Author documented in this encounter Plan of Treatment Not on file documented as of this encounter Visit Diagnoses Not on filedocumented in this encounter Care Teams Certified Alcohol Counselor Relationship Specialty Start Date End Date Casey Berry II, DO PCP - General 11/22/06 08/17/19 Stephani Aleman MD PCP - General Family Medicine 08/18/19 09/16/20 Bianka Loera CNP [address] [place] [id number] PCP - General Nurse Practitioner Family 09/17/20 712/31 Desiree Patrick MD [address] [place] [address] PCP - General Electrophysiology 02/23/22 03/09/22 Desiree Patrick MD [address] [place] [address] 08/09/17 Farrah Nicole APRN,BUCKLE ASSEMBLER [address] [place] [address] 08/09/17 Bry Echevarria MD [address] [place] [address] 08/09/17 Casey Berry II, DO 08/09/17 Shruti Vergara, RN RN Registered Nurse 08/27/20 documented as of this encounter Additional Source Comments PLEASE NOTE: Replies to this message will not be received.[facility]
--- OUTSIDE RECORDS SUMMARY | 2024-02-13 00:18 | XMS_ITS | Encounter Summary ---
Author Organization [employer] Address [address] [place] [address] Care Team Providers Care Installation Tech Name Role Phone Jamal CARLISLE DO, Robert William Primary Care Provide r Unavailable Desiree Patrick MD Unavailable Farrah Nicole APRN,TRAFFIC SUPERINTENDENT Unavailable Bry Echevarria MD Unavailable [phone] Jamal CARLILSE DO, Robert William Unavailable Unav Stephani Diaz MD Primary Care Provider [phone] Shruti Vergara RN Unavailable Unavailable Bianka Loera CNP Primary Care Provider Desiree Patrick MD Primary Care P rovider Encounter Details Date Type Department Care Team (Late st Contact Info) Description 02/03/2017 Historical Conversion [facility] Family Medicine [address] [place] [id number] Social History Tobacco Use Types Packs/Day Years [...] as of this encounter Procedure Notes * [facility]2018 12:00 AM CDTAssociated Order(s): ANTICOAGULATION Anticoagulation Clinic [facility] Name: CRISTIAN BLEDSOE : 1945 DOS: [...] by:Tiffani Carrero RN Jan 05 2018 12:21PM HEALTH INFORMATION DIRECTOR * [facility] 12/21/2017 12:00 AM CDTAssociated Order(s): ANTICOAGULATION Anticoagulation Clinic [facility] Name: CRISTIAN BLEDSOE : 1945 DOS: [...] by:Tiffani Carrero RN Dec 21 2017 8:31AM HEALTH INFORMATION DIRECTOR * [facility] - 11/24/2017 12:00 AM CDTAssociated Order(s): ANTICOAGULATION Anticoagulation [facility] Name: CRISTIAN BLEDSOE : 1945 [...] by:Tiffani Carrero RN Nov 24 2017 2:41PM HEALTH INFORMATION DIRECTOR * [facility] - 10/27/2017 12:00 AM CDTAssociated Order(s): ANTICOAGULATION Anticoagulation [facility] Name: CRISTIAN BLEDSOE : 1945 [...] muscle relaxer. He also reports that his machine technician has changed his medications. Patient stales that he is no longer takingany rate control medications. INR tested today is therapeutic at 2.0 with the recommended range of 2.0 to 3.0. He will continue Coumadin at 5 mg daily with an INR recheck in one month, sooner for anychanges. Patient verbalizes understanding. Electronically signed by:Tiffani Carrero RN Oct 28 2017 7:02AM HEALTH INFORMATION DIRECTOR * [facility] - 09/29/2017 12:00 AM CDTAssociated Order(s): ANTICOAGULATION Anticoagulation Clinic [facility] Name: CRISTIAN BLEDSOE : 1945 DOS: 09/29/2017 Cristian is a patient of Dr. Berry. He is here today for anticoagulation assessment and INR check for adiagnosis of atrial fibrillation. Patient states that he is feeling well. He denies any changes in medication. Patient reports that he continues to experience bradycardia and is working with his machine technician to manage his beta blockers slowly. INR tested today is therapeutic at 2.1 with the recommended range of 2.0 to 3.0. He will continue Coumadin at 5 mg daily with an INR recheck in one month, sooner for any changes. Patient verbalizes understanding. Electronically signed by:Tiffani Carrero RN Sep 29 2017 2:09PM HEALTH INFORMATION DIRECTOR * [facility], [facility] - 09/15/2017 12:00 AM CSTAssociated Order(s): ANTICOAGULATION Anticoagulation Clinic [facility] Name: CRISTIAN BLEDSOE : 1945 DOS: [...] that Dr. Berry will converse with his machine technician to see if they should change some of his heart medications. Patient will call [facility] nurse with any updates. INR tested today is 1.9 with the recommended range of 2.0 to 3.0. He will adjust Coumadin to 5 mg daily with an INR recheck in two weeks. Patient verbalizes understanding. Electronically signed by:Tiffani Carrero RN Sep 15 2017 11:42AM HEALTH INFORMATION DIRECTOR * [facility] - 08/18/2017 12:00 AM CSTAssociated Order(s): ANTICOAGULATION Anticoagulation Clinic [facility] Name: CRISTIAN BLEDSOE : 1945 DOS: [...] by:Tiffani Carrero RN Aug 18 2017 6:00PM HEALTH INFORMATION DIRECTOR * [facility] - 07/09/2017 12:00 AM CSTAssociated Order(s): ANTICOAGULATION Anticoagulation Clinic [facility] Name: CRISTIAN BLEDSOE : 1945 DOS: [...] by:Tiffani Carrero RN Jul 09 2017 11:28AM HEALTH INFORMATION DIRECTOR * [facility] - 06/16/2017 12:00 AM CSTAssociated Order(s): ANTICOAGULATION Anticoagulation Clinic [facility] Name: CRISTIAN BLEDSOE : 1945 DOS: 06/16/2017 This is a patient of Dr. Berry. He is here today for an anticoagulation assessment and INR check fora diagnosis of atrial fibrillation. He states that he has been feeling well. Patient denies any recent medication changes. He reports that he needs weekly INR checks per Dr. Patrick at [facility] Cardiology in preparation for [...] by:Tiffani Carrero RN Jun 16 2017 4:18PM HEALTH INFORMATION DIRECTOR * [facility] - 06/09/2017 12:00 AM CSTAssociated Order(s): ANTICOAGULATION Anticoagulation Clinic [facility] Name: CRISTIAN BLEDSOE : 1945 DOS: 06/09/2017 This is a patient of Dr. Berry. He is here today for an anticoagulation assessment and INR check fora diagnosis of atrial fibrillation. He states that he has been feeling well. Patient denies any recent medication changes. He reports that he needs weekly INR checks per Dr. Patrick at [facility] Cardiology in preparation for [...] by:Tiffani Carrero RN Jun 09 2017 3:40PM HEALTH INFORMATION DIRECTOR * [facility] - 06/02/2017 12:00 AM CSTAssociated Order(s): ANTICOAGULATION Anticoagulation Clinic [facility] Name: CRISTIAN BLEDSOE : 1945 DOS: 06/02/2017 This is a patient of Dr. Berry. He is here today for an anticoagulation assessment and INR check fora diagnosis of atrial fibrillation. He states that he has been feeling well. Patient denies any recent medication changes. He reports that he will need weekly INR checks per Dr. Patrick at [facility] in preparation for taking dofetilide and [...] by:Tiffani Carrero RN Jun 02 2017 9:39AM HEALTH INFORMATION DIRECTOR AMENDMENTS: 1. current INR and Coumadin dosing. Electronically signed by:Tiffani Carrero RN Jun 09 2017 3:41PM HEALTH INFORMATION DIRECTOR * [facility] - 05/26/2017 12:00 AM CSTAssociated Order(s): ANTICOAGULATION Anticoagulation Clinic [facility] Name: CRISTIAN BLEDSOE : 1945 DOS: 05/26/2017 This is a patient of Dr. Berry. He is here today for an anticoagulation assessment and INR check fora diagnosis of atrial fibrillation. He states that he has been feeling well. Patient denies any recent medication changes. He reports that he will need weekly INR checks per Dr. Patrick at [facility] Cardiology in preparation for [...] by:Tiffani Carrero RN May 26 2017 9:42AM HEALTH INFORMATION DIRECTOR * [facility] - 05/19/2017 12:00 AM CSTAssociated Order(s): ANTICOAGULATION Anticoagulation Clinic [facility] Name: CRISTIAN BLEDSOE : 1945 DOS: 05/19/2017 This is a patient of Dr. Berry. He is here today for an anticoagulation assessment and INR check fora diagnosis of atrial fibrillation. He states that he has been feeling well. Patient denies any recent medication changes. He reports that he will need weekly INR checks per Dr. Patrick at [facility] Cardiology in preparation for [...] by:Tiffani Carrero RN May 19 2017 3:13PM HEALTH INFORMATION DIRECTOR * [facility] - 05/14/2017 12:00 AM CDTAssociated Order(s): ANTICOAGULATION Email communication received from patient today: ALLAN Vera, RN [facility] (direct phone) [phone] Per our phone conversation of yesterday afternoon, I will be having an initiation of Tikosyn (Dofetilide) at [facility] beginning on June 21. To prepare for this, my machine technician,Dr. Desiree Patrick, has requested INR lab reports demonstrating 4 to 5 weeks of INR levels between 2.5 and 3 prior to the initiation of Tikosyn. Would you please fax my INR lab reports for the month of May to Tamika, Dr. Partick???s nurse, at (fax) [phone]? The phone number for Dr. Patrick is [phone]. As we discussed, I will come in for INR testing each Wednesday morning at 9:30 AM to meet this requirement. Thank you, Anurag Bledsoe Electronically signed by:Tiffani Carrero RN May 14 2017 9:46AM HEALTH INFORMATION DIRECTOR * [facility] - 05/10/2017 12:00 AM CDTAssociated Order(s): ANTICOAGULATION Anticoagulation Clinic [facility] Name: CRISTIAN BLEDSOE : 1945 DOS: 05/10/2017 This is a patient of Dr. Berry. He is here today for an anticoagulation assessment and INR check fora diagnosis of atrial fibrillation. He states that he has been feeling well. Patient denies any recent medication changes. He reports that he will need weekly INR checks per Dr. Patrick at [facility] Cardiology in preparation for [...] by:Tiffani Carrero RN May 10 2017 3:11PM HEALTH INFORMATION DIRECTOR * [facility] - 04/06/2017 12:00 AM CDTAssociated Order(s): ANTICOAGULATION Anticoagulation Clinic [facility] Name: CRISTIAN BLEDSOE : 1945 DOS: [...] by:Tiffani Carrero RN Apr 06 2017 12:37PM HEALTH INFORMATION DIRECTOR * [facility] - 03/03/2017 12:00 AM CDTAssociated Order(s): ANTICOAGULATION Anticoagulation Clinic [facility] Name: CRISTIAN BLEDSOE : 1945 DOS: [...] He will have INR checked in the [facility] prior to his appointment with Dr. Maloney. Patient verbalized understanding. Electronically signed by:Tiffani Carrero RN Mar 03 2017 12:02PM HEALTH INFORMATION DIRECTOR * [facility] - 02/03/2017 12:00 AM CDTAssociated Order(s): ANTICOAGULATION Anticoagulation Clinic [facility] Name: CRISTIAN BLEDSOE : 1945 DOS: [...] by:Tiffani Carrero RN Feb 03 2017 10:11AM HEALTH INFORMATION DIRECTOR documented in this encounter Plan of [...] Results * ANTICOAGULATION (01/05/2018) Narrative Procedure Note [facility] - 01/05/2018 12:00 AM CDT Anticoagulation [facility] Name: CRISTIAN BLEDSOE : 1945 [...] by:Tiffani Carrero RN Jan 05 2018 12:21PM HEALTH INFORMATION DIRECTOR [facility] OTHER * ANTICOAGULATION (12/21/2017) Narrative Procedure Note [facility] - 12/21/2017 12:00 AM CDT Anticoagulation [facility] Name: CRISTIAN BLEDSOE : 1945 [...] by:Tiffani Carrero RN Dec 21 2017 8:31AM HEALTH INFORMATION DIRECTOR [facility] OTHER * ANTICOAGULATION (11/24/2017) Narrative Procedure Note [facility] - 11/24/2017 12:00 AM CDT Anticoagulation [facility] Name: CRISTIAN BLEDSOE : 1945 [...] by:Tiffani Carrero RN Nov 24 2017 2:41PM HEALTH INFORMATION DIRECTOR [facility] OTHER * ANTICOAGULATION (10/27/2017) Narrative Procedure Note [facility] - 10/27/2017 12:00 AM CDT Anticoagulation [facility] Name: CRISTIAN BLEDSOE : 1945 DOS: 10/27/2017 Cristian is a patient of Dr. Berry. He is here today for anticoagulationassessment and INR check for a diagnosis of atrial fibrillation. Patientstates that he has not been feeling well and has been suffering withspinal stenosis. He reports that he has been taking soma for a musclerelaxer. He also reports that his machine technician has changed hismedications. Patient stales that he is no longer taking any rate controlmedications. INR tested today is therapeutic at 2.0 with the recommendedrange of 2.0 to 3.0. He will continue Coumadin at 5 mg daily with an INRrecheck in one month, sooner for any changes. Patient verbalizesunderstanding. Electronically signed by:Tiffani Carrero RN Oct 28 2017 7:02AM HEALTH INFORMATION DIRECTOR [facility] OTHER * ANTICOAGULATION (09/29/2017) Narrative Procedure Note [facility] - 09/29/2017 12:00 AM CDT Anticoagulation [facility] Name: CRISTIAN BLEDSOE : 1945 DOS: 09/29/2017 Cristian is a patient of Dr. Berry. He is here today for anticoagulationassessment and INR check for a diagnosis of atrial fibrillation. Patientstates that he is feeling well. He denies any changes in medication.Patient reports that he continues to experience bradycardia and is workingwith his machine technician to manage his beta blockers slowly. INR testedtoday is therapeutic at 2.1 with the recommended range of 2.0 to 3.0. Hewill continue Coumadin at 5 mg daily with an INR recheck in one month,sooner for any changes. Patient verbalizes understanding. Electronically signed by:Tiffani Carrero RN Sep 29 2017 2:09PM HEALTH INFORMATION DIRECTOR [facility] OTHER * ANTICOAGULATION (09/15/2017) Narrative Procedure Note [facility] - 09/15/2017 12:00 AM CST [facility]ticoagulation Clinic [facility] Name: CRISTIAN BLEDSOE : 1945 DOS: [...] statesthat Dr. Berry will converse with his machine technician to see if they shouldchange some of his heart medications. Patient will call [facility] nurse with anyupdates. INR tested today is 1.9 with the recommended range of 2.0 to 3.0.He will adjust Coumadin to 5 mg daily with an INR recheck in two weeks.Patient verbalizes understanding. Electronically signed by:Tiffani aCrrero RN Sep 15 2017 11:42AM HEALTH INFORMATION DIRECTOR [facility] OTHER * ANTICOAGULATION (08/18/2017) Narrative Procedure Note [facility] - 08/18/2017 12:00 AM CST Anticoagulation [facility] Name: CRISTIAN BLEDSOE : 1945 [...] by:Tiffani Carrero RN Aug 18 2017 6:00PM HEALTH INFORMATION DIRECTOR [facility] OTHER * ANTICOAGULATION (07/09/2017) Narrative Procedure Note [facility] - 07/09/2017 12:00 AM CST Anticoagulation [facility] Name: CRISTIAN BLEDSOE : 1945 [...] by:Tiffani Carrero RN Jul 09 2017 11:28AM HEALTH INFORMATION DIRECTOR [facility] OTHER * ANTICOAGULATION (06/16/2017) Narrative Procedure Note [facility] - 06/16/2017 12:00 AM CST [facility]ticoagulation Clinic [facility] Name: CRISTIAN BLEDSOE : 1945 DOS: 06/16/2017 This is a patient of Dr. Berry. He is here today for an anticoagulationassessment and INR check for a diagnosis of atrial fibrillation. He statesthat he has been feeling well. Patient denies any recent medicationchanges. He reports that he needs weekly INR checks per Dr. Patrick [facility] Cardiology in preparation for taking dofetilide [...] by:Tiffani Carrero RN Jun 16 2017 4:18PM HEALTH INFORMATION DIRECTOR [facility] OTHER * ANTICOAGULATION (06/09/2017) Narrative Procedure Note [facility] - 06/09/2017 12:00 AM CST [facility]ticoagulation Clinic [facility] Name: CRISTIAN BLEDSOE : 1945 DOS: 06/09/2017 This is a patient of Dr. Berry. He is here today for an anticoagulationassessment and INR check for a diagnosis of atrial fibrillation. He statesthat he has been feeling well. Patient denies any recent medicationchanges. He reports that he needs weekly INR checks per Dr. Patrick [facility] Cardiology in preparation for taking dofetilide [...] by:Tiffani Carrero RN Jun 09 2017 3:40PM HEALTH INFORMATION DIRECTOR [facility]provider [facility] OTHER * ANTICOAGULATION (06/02/2017) Narrative Procedure Note [facility], [facility] - 06/02/2017 12:00 AM CST [facility]ticoagulation Clinic [facility] Name: CRISTIAN BLEDSOE : 1945 DOS: 06/02/2017 This is a patient of Dr. Berry. He is here today for an anticoagulationassessment and INR check for a diagnosis of atrial fibrillation. He statesthat he has been feeling well. Patient denies any recent medicationchanges. He reports that he will need weekly INR checks per Dr. Valencia [facility] Cardiology in preparation for [...] by:Tiffani Carrero RN Jun 02 2017 9:39AM HEALTH INFORMATION DIRECTOR AMENDMENTS: 1. current INR and Coumadin dosing. Electronically signed by:Tiffani Carrero RN Jun 09 2017 3:41PM HEALTH INFORMATION [facility]OR [facility] * [facility]TICO[facility]ATION (05/26/2017) Narrative Procedure Note [facility] - 05/26/2017 12:00 AM CST Anticoagulation [facility] Name: CRISTIAN BLEDSOE : 1945 DOS: 05/26/2017 This is a patient of Dr. Berry. He is here today for an anticoagulationassessment and INR check for a diagnosis of atrial fibrillation. He statesthat he has been feeling well. Patient denies any recent medicationchanges. He reports that he will need weekly INR checks per Dr. Valencia [facility] Cardiology in preparation for [...] by:Tiffani Carrero RN May 26 2017 9:42AM HEALTH INFORMATION DIRECTOR [facility] * [facility]ICOAGULATION (05/19/2017) Narrative Procedure [facility] 05/19/2017 12:00 AM CST Anticoagulation [facility] Name: CRISTIAN BLEDSOE : 1945 DOS: 05/19/2017 This is a patient of Dr. Berry. He is here today for an anticoagulationassessment and INR check for a diagnosis of atrial fibrillation. He statesthat he has been feeling well. Patient denies any recent medicationchanges. He reports that he will need weekly INR checks per Dr. Valencia [facility] Cardiology in preparation for [...] by:Tiffani Carrero RN May 19 2017 3:13PM HEALTH INFORMATION DIRECTOR Genericprovider [facility] OTHER * ANTICOAGULATION (05/14/2017) Narrative Procedure Note [facility] - 05/14/2017 12:00 AM CDT Email communication received from patient today: ALLAN Vera, RN [facility] (direct phone) [phone] Per our phone conversation of yesterday afternoon, I will be having aninitiation of Tikosyn (Dofetilide) at [facility] beginning June 21. To prepare for this, my machine technician, Dr. Serra, has requested INR lab reports demonstrating 4 to 5 weeks ofINR levels between 2.5 and 3 prior to the initiation of Tikosyn. Would you please fax my INR lab reports for the month of May Oneil, Dr. Patrick? s nurse, at (fax) [phone]? The phone numberfor Dr. Patrick is [phone]. As we discussed, I will come in for INR testing each Wednesday morning at9:30 AM to meet this requirement. Thank you, Anurag Premapura Electronically signed by:Tiffani Carrero RN May 14 2017 9:46AM HEALTH INFORMATION DIRECTOR [facility] OTHER * ANTICOAGULATION (05/10/2017) Narrative Procedure Note [facility], [facility] - 05/10/2017 12:00 AM CDT Anticoagulation [facility] Name: CRISTIAN BLEDSOE : 1945 DOS: 05/10/2017 This is a patient of Dr. Berry. He is here today for an anticoagulationassessment and INR check for a diagnosis of atrial fibrillation. He statesthat he has been feeling well. Patient denies any recent medicationchanges. He reports that he will need weekly INR checks per Dr. Valencia [facility] Cardiology in preparation for [...] by:Tiffani Carrero RN May 10 2017 3:11PM HEALTH INFORMATION DIRECTOR [facility] OTHER * ANTICOAGULATION (04/06/2017) Narrative Procedure Note [facility], [facility] - 04/06/2017 12:00 AM CDT Anticoagulation [facility] Name: CRISTIAN BLEDSOE : 1945 [...] by:Tiffani Carrero RN Apr 06 2017 12:37PM HEALTH INFORMATION DIRECTOR [facility] OTHER * ANTICOAGULATION (03/03/2017) Narrative Procedure Note [facility] - 03/03/2017 12:00 AM CDT Anticoagulation [facility] Name: CRISTIAN BLEDSOE : 1945 [...] changes. He willhave INR checked in the [facility] prior to his appointment with . Patient verbalized understanding. Electronically signed by:Tiffani Carrero RN Mar 03 2017 12:02PM HEALTH INFORMATION DIRECTOR [facility] OTHER * ANTICOAGULATION (02/03/2017) Narrative Procedure Note [facility] - 02/03/2017 12:00 AM CDT Anticoagulation [facility] Name: CRISTIAN BLEDSOE : 1945 [...] by:Tiffani Carrero RN Feb 03 2017 10:11AM HEALTH INFORMATION DIRECTOR Genericprovider [facility] OTHER documented in this encounter Visit Diagnoses Not on filedocumented in this encounter Care Teams Installation Tech Relationship Specialty Start Date End Date Casey Berry II, DO PCP - General 11/22/06 08/17/19 Stephani Aleman MD PCP - General Family Medicine 08/18/19 09/16/20 Bianka Loera CNP [address] [place] [address] [address] [place] [address] PCP - General Nurse Practitioner Family 09/17/2001/10 Desiree Patrick MD [address] [place] [address] PCP - General Electrophysiology 02/23/22 03/09/22 Desiree Patrick MD [address] [place] [address] 08/09/17 Farrah Nicole APRN,TRAFFIC SUPERINTENDENT [address] [id number] 08/09/17 Bry Echevarria MD [address] [place] [id number] 08/09/17 Casey Berry II, DO 08/09/17 Shruti Vergara RN RN Registered Nurse 08/27/20 documented as of this encounter Additional Source Comments PLEASE NOTE: Replies to this message will not be received.[facility]
--- OUTSIDE RECORDS SUMMARY | 2024-02-13 00:18 | XMS_ITS | Encounter Summary ---
Author Organization [employer] Address [address] [place] [address] Care Team Providers Care Reexaminer Name Role Phone Jamal CARLISLE DO, Robert William Primary Care Provide r Unavailable Desiree Patrick MD Unavailable Farrah Nicole APRN,FLASH WELDER Unavailable [phone] Bry Echevarria MD Unavailable Jamal CARLISLE DO, Robert William Unavailable Unav Stephani Diaz MD Primary Care Provider Shruti Vergara RN Unavailable Unavailable Bianka Loera CNP Primary Care Provider [phone] Desiree Patrick MD Primary Care P rovider Encounter Details Date Type Department Care Team (Late st Contact Info) Description 10/17/2016 Historical Conversion [facility] Family Medicine [address] [place] [id number] Social History Tobacco Use Types Packs/Day Years [...] do you have serious difficulty hearing? Yes-slightly NIKOLSKI 10/17/2016 Are you blind or do you [...] on filedocumented in this encounter Care Teams Reexaminer Relationship Specialty Start Date End Date Casey Berry II, DO PCP - General 11/22/06 08/17/19 Stephani Aleman MD PCP - General Family Medicine 08/18/19 09/16/20 Bianka Loera CNP [address] [place] [phone] PCP - General Nurse Practitioner Family 09/17/2001/10 [place] [address] [place] [phone] PCP - General Electrophysiology 02/23/22 03/09/22 Desiree Patrick MD [address] [place] [address] 08/09/17 Farrah Nicole APRN,[facility] [address] [place] [address] 08/09/17 Bry Echevarria MD [address] [place] [address] [place] [address] 08/09/17 Casey Berry II, DO 08/09/17 Shruti Vergara RN RN Registered Nurse 08/27/20 documented as of this encounter Additional Source Comments PLEASE NOTE: Replies to this message will not be received.[facility]
--- OUTSIDE RECORDS SUMMARY | 2024-02-13 00:18 | XMS_ITS | Encounter Summary ---
Author Organization [employer] Address [address] [place] [address] Care Team Providers Care Microchip Specialist Name Role Phone Jamal CARLISLE DO, Robert William Primary Care Provide r Unavailable Desiree Patrick MD Unavailable Farrah Nicole APRN,DRESS CAP MAKER Unavailable Bry Echevarria MD Unavailable Jamal CARLISLE DO, Robert William Unavailable Unav Stephani Diaz MD Primary Care Provider [phone] Shruti Vergara RN Unavailable Unavailable Bianka Loera CNP Primary Care Provider [phone] Desiree Patrick MD Primary Care P rovider Encounter Details Date Type Department Care Team (Late st Contact Info) Description 10/26/2016 Historical Conversion [facility] Family Medicine [address] [place] [phone] Casey Berry II, DO Social History Tobacco [...] on filedocumented in this encounter Care Teams Microchip Specialist Relationship Specialty Start Date End Date Casey Berry II, DO PCP - General 11/22/06 08/17/19 Stephani Aleman MD PCP - General Family Medicine 08/18/19 09/16/20 Bianka Loera CNP [address] [place] [address] 2 [place] [phone] PCP - General Nurse Practitioner Family 09/17/2001/10 [place] [address] [place] [address] PCP - General Electrophysiology 02/23/22 03/09/22 Desiree Patrick, MD [address] [place] [address] 08/09/17 Farrah Nicole APRN,[facility] [address] [place] [address] 08/09/17 Bry Echevarria MD [address] [place], [place] [address] [address] 08/09/17 Casey Berry II, DO 08/09/17 Shruti Vergara RN RN Registered Nurse 08/27/20 documented as of this encounter Additional Source Comments PLEASE NOTE: Replies to this message will not be received.[facility] and [facility]
--- OUTSIDE RECORDS SUMMARY | 2024-02-13 00:18 | XMS_ITS | Encounter Summary ---
Author Organization [employer] Address [address] [place] [address] Care Team Providers Care Third Hand Name Role Phone Jamal CARLISLE DO, Robert William Primary Care Provide r Unavailable Desiree Patrick MD Unavailable Farrah Nicole APRN,LINE HAUL TRUCK DRIVER Unavailable Bry Echevarria MD Unavailable [phone] Jamal CARLISLE DO, Robert William Unavailable Unav Stephani Diaz MD Primary Care Provider Shruti Vergara RN Unavailable Unavailable Bianka Loera CNP Primary Care Provider Desiree Patrick MD Primary Care P rovider Encounter Details Date Type Department Care Team (Late st Contact Info) Description 12/01/2016 Historical Conversion [facility] Family Medicine [address] [place] [address] Moon Maloney MD Social History Tobacco Use [...] on filedocumented in this encounter Care Teams Third Hand Relationship Specialty Start Date End Date Casey Berry II, DO PCP - General 11/22/06 08/17/19 Stephani Aleman MD PCP - General Family Medicine 08/18/19 09/16/20 Bianka Loera CNP [address] [place] [address] 2 [place] [phone] PCP - General Nurse Practitioner Family 09/17/2001/10 [place] [address] [place] [phone] PCP - General Electrophysiology 02/23/22 03/09/22 Desiree Patrick MD [address] [place] [address] 08/09/17 Farrah Nicole APRN,LINE HAUL TRUCK DRIVER [address] [place] [address] 08/09/17 Bry Echevarria MD [address] [place] [address] 08/09/17 Casey Berry II, DO 08/09/17 Shruti Vergara RN RN Registered Nurse 08/27/20 documented as of this encounter Additional Source Comments PLEASE NOTE: Replies to this message will not be received.[facility] and [facility]
--- OUTSIDE RECORDS SUMMARY | 2024-02-13 00:18 | XMS_ITS | Encounter Summary ---
Author Organization [facility] [employer] [facility] Address [address] [place] [address] Care Team Providers Care Registered Nurse Fetal Name Role Phone Jamal CARLISLE DO, Robert William Primary Care Provide r Unavailable Desiree Patrick MD Unavailable Farrah Nicole APRN,COOLER OPERATOR Unavailable Bry Echevarria MD Unavailable Jamal CARLISLE DO, Robert William Unavailable Unav Stephani Diaz MD Primary Care Provider [phone] Shruti Vergara RN Unavailable Unavailable Bianka Loera CNP Primary Care Provider Desiree Patrick MD Primary Care P rovider Encounter Details Date Type Department Care Team (Late st Contact Info) Description 12/31/2016 HIM Tour Manager [facility] Heart & Vascular [address] [address] Gil Solares MD Social History Tobacco Use [...] ADULT WITH OR WITHOUT CONTRAST PERFORMED BY: [email or web address] [place], [place] SITE: [place], [place] INTERPRETED BY: [facility] [place], [place] TRANSTHORACIC ECHOCARDIOGRAM REPORT REFERRING DIAGNOSIS: Paroxysmal [...] fibrillation. Note: This study was performed by [employer] for [place]. Only the interpretation wasperformed at the [facility] [place]. Electronically signed Gil Solarse MD, [facility] Music Leader , 04:45 P A kmg/Doc#: [id number] cc: Adult Normal Value Adult Patient Values [...] Blood pressure: 116/81 mmHg Previous study: 11/19/15 Housekeeping Attendant: WATSONG documented in this encounter Plan of [...] - 12/31/2016 12:00 AM CDT PERFORMED BY: [email or web address] [place], [place] SITE: [place] INTERPRETED BY: [facility] [place], [place] TRANSTHORACIC ECHOCARDIOGRAM REPORT REFERRING DIAGNOSIS: Paroxysmal [...] fibrillation. Note: This study was performed by [facility] for [place].Only the interpretation was performed at the [facility]. Electronically signed Gil Solares MD, [facility] Music [employer] , 04:45 P A taylag/Doc#: [id number] cc: Adult Normal Value Adult Patient Values [...] dt 254 ms E' sept 6.04 cm/sec [id number] ms E/e' 10 E' lat 9.65 cm/sec IMPRESSION: Patient height: 185 cm Patient weight: 94 kg Blood pressure: 116/81 mmHg Previous study: 11/19/15 Housekeeping Attendant: HIEU Desiree NICHOLS documented in this encounter Visit Diagnoses Not on filedocumented in this encounter Care Teams Registered Nurse Fetal Relationship Specialty Start Date End Date Casey Berry II, DO PCP - General 11/22/06 08/17/19 Stephani Aleman MD PCP - General Family Medicine 08/18/19 09/16/20 Bianka Loera, REGISTERED NURSE FETAL [address] [place] [phone] PCP - General Nurse Practitioner Family 09/17/20 712/31 Desiree Patrick MD [address] [place] [address] PCP - General Electrophysiology 02/23/22 03/09/22 Desiree Patrick MD [address] [place] [address] 08/09/17 Farrah Nicole APRN,COOLER OPERATOR [address] [place] [address] 08/09/17 Bry Echevarria MD [address] [place] [address] 08/09/17 Casey Berry II, DO 08/09/17 Shruti Vergara RN RN Registered Nurse 08/27/20 documented as of this encounter Additional Source Comments PLEASE NOTE: Replies to this message will not be received.[facility] and [facility]
--- OUTSIDE RECORDS SUMMARY | 2024-02-13 00:18 | XMS_ITS | Encounter Summary ---
Author Organization [employer] Address [address] [place] [address] Care Team Providers Care Tube Winder Hand Name Role Phone Jamal CARLISLE DO, Robert William Primary Care Provide r Unavailable Desiree Patrick MD Unavailable Farrah Nicole APRN,AUTOMATIC SERGING MACHINE OPERATOR Unavailable Bry Echevarria MD Unavailable Jamal CARLISLE DO, Robert William Unavailable Unav Stephani Diaz MD Primary Care Provider Shrtui Vergara RN Unavailable Unavailable Bianka Loera CNP Primary Care Provider Desiree Patrick MD Primary Care P rovider Encounter Details Date Type Department Care Team (Late st Contact Info) Description 12/31/2016 Historical Conversion [facility] Family Medicine [address] [facility] [place] [address] Desiree Rubi PAC [address] [place] [address] Social History Tobacco Use Types [...] filedocumented in this encounter Care Teams Tube Winder Hand Relationship Specialty Start Date End Date Casey Berry II, DO PCP - General 11/22/06 08/17/19 Stephani Aleman MD PCP - General Family Medicine 08/18/19 09/16/20 Bianka Loera CNP [address] [facility] 2 [place] [address] PCP - General Nurse Practitioner Family 09/17/2001/10 Desiree Patrick MD [address] [place] [address] PCP - General Electrophysiology 02/23/22 03/09/22 Desiree Patrick MD [address] [place] [address] 08/09/17 Farrah Nicole APRN,AUTOMATIC SERGING MACHINE OPERATOR [address] [place] [address] 08/09/17 Bry Echevarria MD [address] [place] [address] [place] [address] 08/09/17 Casey Berry II, DO 08/09/17 Shruti Vergara RN RN Registered Nurse 08/27/20 documented as of this encounter Additional Source Comments PLEASE NOTE: Replies to this message will not be received.[facility] and [facility]
--- OUTSIDE RECORDS SUMMARY | 2024-02-13 00:18 | XMS_ITS | Encounter Summary ---
Author Organization [employer] Address [address] [place] [address] Care Team Providers Care Office Analyst Name Role Phone Jamal CARLISLE DO, Robert William Primary Care Provide r Unavailable Desiree Patrick MD Unavailable Farrah Nicole APRN,ELECTRICAL FITTER Unavailable [phone] Bry Echevarria MD Unavailable Jamal CARLISLE DO, Robert William Unavailable Unav Stephani Diaz MD Primary Care Provider Shruti Vergara RN Unavailable Unavailable Bianka Loera CNP Primary Care Provider Desiree Patrick MD Primary Care P rovider Encounter Details Date Type Department Care Team (Late st Contact Info) Description 11/30/2016 Historical Conversion [facility] Family Medicine [address] [place] [address] Casey Berry II, DO Social History Tobacco [...] on filedocumented in this encounter Care Teams Office Analyst Relationship Specialty Start Date End Date Casey Berry II, DO PCP - General 11/22/06 08/17/19 Stephani Aleman MD PCP - General Family Medicine 08/18/19 09/16/20 Bianka Loera CNP [address] [place] [address] 2 [place] [phone] PCP - General Nurse Practitioner Family 09/17/2001/10 [place] [address] [place] [address] PCP - General Electrophysiology 02/23/22 03/09/22 Desiree Patrick MD [address] [place] [address] 08/09/17 Farrah Nicole APRN,ELECTRICAL FITTER [address] [place] [address] 08/09/17 Bry Echevarria MD [facility] [place] [address] 08/09/17 Casey Berry II, DO 08/09/17 Shruti Vergara RN RN Registered Nurse 08/27/20 documented as of this encounter Additional Source Comments PLEASE NOTE: Replies to this message will not be received.[facility] and [facility]
--- OUTSIDE RECORDS SUMMARY | 2024-02-13 00:18 | XMS_ITS | Encounter Summary ---
Author Organization [employer] Address [address] [place] [address] Care Team Providers Care Supervisor Hairspring Fabrication Name Role Phone Jamal CARLISLE DO, Robert William Primary Care Provide r Unavailable Desiree Patrick MD Unavailable Farrah Nicole APRN,ASSIGNMENT DESK EDITOR Unavailable [phone] Bry Echevarria MD Unavailable Jamal CARLISLE DO, Robert William Unavailable Unav Stephani Diaz MD Primary Care Provider Shruti Vergara RN Unavailable Unavailable Bianka Loera CNP Primary Care Provider Desiree Patrick MD Primary Care P rovider Encounter Details Date Type Department Care Team (Late st Contact Info) Description 07/01/2017 Historical Conversion [facility] Family Medicine [address] [place] [address] Social History Tobacco Use Types Packs/Day Years [...] of this encounter Procedure Notes * [facility] DONTAELUBNA - 06/14/2018 12:00 AM CSTAssociated Order(s): [...] by:Tiffani Carrero RN Jun 14 2018 7:43PM HEAVY EQUIPMENT RENTAL ASSOCIATE * [facility] MICHELLEPROVIDER - 05/17/2018 12:00 AM CSTAssociated Order(s): ANTICOAGULATION [facility] Name: CRISTIAN BLEDSOE : 1945 DOS: 05/17/2018 [...] by:Tiffani Carrero RN May 17 2018 11:41AM HEAVY EQUIPMENT RENTAL ASSOCIATE * [facility] 04/26/2018 12:00 AM CDTAssociated Order(s): ANTICOAGULATION [facility] Name: CRISTIAN BLEDSOE : 1945 DOS: 04/26/2018 [...] by:Tiffani Carrero RN Apr 26 2018 4:12PM HEAVY EQUIPMENT RENTAL ASSOCIATE * [facility] - 03/22/2018 12:00 AM CDTAssociated Order(s): ANTICOAGULATION [facility] Name: CRISTIAN BLEDSOE : 1945 DOS: 03/22/2018 [...] by:Tiffani Carrero RN Mar 22 2018 3:06PM HEAVY EQUIPMENT RENTAL ASSOCIATE * [facility] DAYANNABRANDO - 02/23/2018 12:00 AM CDTAssociated Order(s): ANTICOAGULATION Anticoagulation [facility] Name: CRISTIAN BLEDSOE : 1945 DOS: [...] by:Tiffani Carrero RN Feb 23 2018 10:29AM HEAVY EQUIPMENT RENTAL ASSOCIATE * [facility] DONTAELUBNA - 02/09/2018 12:00 AM CDTAssociated Order(s): ANTICOAGULATION Anticoagulation [facility] Name: CRISTIAN BLEDSOE : 1945 DOS: 02/09/2018 Cristian is a patient of Dr. Berry. He is here today for anticoagulation assessment and INR check for adiagnosis of atrial fibrillation. Patient states that he has been feeling well. He denies any medication changes since his last INR check. Patient reports that he recently took a trip to [place] and forgot to take his Coumadin during the weekend. INR tested today is 1.8 with the recommended range of 2.0 to 3.0. Patient will continue Coumadin at 7.5 mg on Wednesdays and 5 mg all other days withan INR recheck in two weeks. Patient verbalizes understanding. Electronically signed by:Tiffani Carrero RN Feb 09 2018 4:06PM HEAVY EQUIPMENT RENTAL ASSOCIATE * [facility], GENERICPROVIDER - 07/01/2017 12:00 AM CSTAssociated Order(s): ANTICOAGULATION Name: CRISTIAN BLEDSOE : 1945 DOS: 07/01/2017 Cristian is a patient of Dr. Berry. He is here today for anticoagulation assessment and INR check for adiagnosis of atrial fibrillation. Patient was seen in clinic by Dr. Echevarria today post cardioversion. Patient had a cardioversion on 06/24 at [facility] and he reports it went well. [...] by:Theresa Crowder RN Jul 01 2017 5:02PM HEAVY EQUIPMENT RENTAL ASSOCIATE documented in this encounter Plan of Treatment Not on file documented as of this encounter Procedures Procedure Name Priority Date/Time Associated Diagnosis Comments ANTICOAGULATION 06/14/2018 ANTICOAGULATION 05/17/2018 ANTICOAGULATION 04/26/2018 ANTICOAGULATION 03/22/2018 ANTICOAGULATION 02/23/2018 ANTICOAGULATION 02/09/2018 ANTICOAGULATION 07/01/2017 documented in this encounter Results * ANTICOAGULATION (06/14/2018) Narrative Procedure Note [facility], MICHELLEPROVIBRANDO - 06/14/2018 12:00 AM CST Name: [...] by:Tiffani Carrero RN Jun 14 2018 7:43PM HEAVY EQUIPMENT RENTAL ASSOCIATE [facility] OTHER * ANTICOAGULATION (05/17/2018) Narrative Procedure Note [facility] - 05/17/2018 12:00 AM CST Anticoagulation [facility] Name: CRISTIAN BLEDSOE : 1945 DOS: [...] by:Tiffani Carrero RN May 17 2018 11:41AM HEAVY EQUIPMENT RENTAL ASSOCIATE [facility] OTHER * ANTICOAGULATION (04/26/2018) Narrative Procedure Note [facility] - 04/26/2018 12:00 AM CDT Anticoagulation [facility] Name: CRISTIAN BLEDSOE : 1945 DOS: 04/26/2018 [place]ian is a patient of Dr. eBrry. He is here today for anticoagulationassessment and [...] by:Tiffani Carrero RN Apr 26 2018 4:12PM HEAVY EQUIPMENT RENTAL ASSOCIATE [facility] OTHER * ANTICOAGULATION (03/22/2018) Narrative Procedure Note [facility] - 03/22/2018 12:00 AM CDT Anticoagulation [facility] Name: CRISTIAN BLEDSOE : 1945 DOS: [...] by:Tiffani Carrero RN Mar 22 2018 3:06PM HEAVY EQUIPMENT RENTAL ASSOCIATE [facility] OTHER * ANTICOAGULATION (02/23/2018) Narrative Procedure Note [facility] - 02/23/2018 12:00 AM CDT Anticoagulation [facility] Name: CRISTIAN BLEDSOE : 1945 DOS: [...] by:Tiffani Carrero RN Feb 23 2018 10:29AM HEAVY EQUIPMENT RENTAL ASSOCIATE [facility] OTHER * ANTICOAGULATION (02/09/2018) Narrative Procedure Note [facility] - 02/09/2018 12:00 AM CDT [facility]ticoagulation [facility] Name: CRISTIAN BLEDSOE : 1945 DOS: 02/09/2018 [...] by:Tiffani Carrero RN Feb 09 2018 4:06PM HEAVY EQUIPMENT RENTAL ASSOCIATE [facility] OTHER * ANTICOAGULATION (07/01/2017) Narrative Procedure Note [facility] - 07/01/2017 12:00 AM CST Name: CRISTIAN BLEDSOE : 1945 DOS: 07/01/2017 Cristian is a patient of Dr. Berry. He is here today for anticoagulationassessment and INR check for a diagnosis of atrial fibrillation. Patientwas seen in clinic by Dr. Echevarria today post cardioversion. Patient had acardioversion on 06/24 at [facility] and he reports it went well. [...] by:Theresa Crowder RN Jul 01 2017 5:02PM HEAVY EQUIPMENT RENTAL ASSOCIATE Genericprovider [facility] OTHER documented in this encounter Visit Diagnoses Not on filedocumented in this encounter Care Teams Supervisor Hairspring Fabrication Relationship Specialty Start Date End Date Casey Berry II, DO PCP - General 11/22/06 08/17/19 Stephani Aleman MD PCP - General Family Medicine 08/18/19 09/16/20 Bianka Loera UNIFORM ATTENDANT [address] [facility] 2 [place] [address] PCP - General Nurse Practitioner Family 09/17/2001/10 Desiree Patrick MD [address] [place] [address] PCP - General Electrophysiology 02/23/22 03/09/22 [place] [address] [place] [address] 08/09/17 Farrah Nicole APRN,ALEX [address] [place] [address] 08/09/17 Bry Echevarria MD [address] [place] [address] 08/09/17 Casey Berry II, DO 08/09/17 Shruti Vergara RN RN Registered Nurse 08/27/20 documented as of this encounter Additional Source Comments PLEASE NOTE: Replies to this message will not be received.[facility] and [facility]
--- OUTSIDE RECORDS SUMMARY | 2024-02-13 00:18 | XMS_ITS | Encounter Summary ---
Author Organization [employer] Address [address] [place] [address] Care Team Providers Care Golf Club Manager Name Role Phone Jamal CARLISLE DO, Robert William Primary Care Provide r Unavailable Desiree Patrick MD Unavailable Farrah Nicole APRN,AD OPERATIONS SPECIALIST Unavailable [phone] Bry Echevarria MD Unavailable Jamal CARLISLE DO, Robert William Unavailable Unav Stephani Diaz MD Primary Care Provider Shruti Vergara RN Unavailable Unavailable Bianka Loera CNP Primary Care Provider [phone] Desiree Patrick MD Primary Care P rovider Encounter Details Date Type Department Care Team (Late st Contact Info) Description 10/21/2016 Historical Conversion [facility] Family Medicine [address] [place] [address] Social History Tobacco Use Types Packs/Day Years [...] on filedocumented in this encounter Care Teams Golf Club Manager Relationship Specialty Start Date End Date Casey Berry II, DO PCP - General 11/22/06 08/17/19 Stephani Aleman MD PCP - General Family Medicine 08/18/19 09/16/20 Bianka Loera CNP [address] [place] [phone] PCP - General Nurse Practitioner Family 09/17/2001/10 Desiree Patrick MD [address] [place] [address] PCP - General Electrophysiology 02/23/22 03/09/22 Desiree Patrick MD [address] [place] [address] 08/09/17 Farrah Nicole APRN,AD OPERATIONS SPECIALIST [address] [place] [address] 08/09/17 Bry Echevarria MD [address] [place] [address] 08/09/17 Casey Berry II, DO 08/09/17 Shruti Vergara RN RN Registered Nurse 08/27/20 documented as of this encounter Additional Source Comments PLEASE NOTE: Replies to this message will not be received.[facility] and [facility]
--- OUTSIDE RECORDS SUMMARY | 2024-02-13 00:18 | XMS_ITS | Encounter Summary ---
Author Organization [employer] Address [address] [place] [address] Care Team Providers Care Dishwasher Preparer Name Role Phone Jamal CARLISLE DO, Robert William Primary Care Provide r Unavailable Desiree Patrick MD Unavailable Farrah Nicole APRN,CREDIT REPRESENTATIVE Unavailable Bry Echevarria MD Unavailable [phone] Jamal CARLISLE DO, Robert William Unavailable Unav Stephani Diaz MD Primary Care Provider Shruti Vergara RN Unavailable Unavailable Bianka Loera CNP Primary Care Provider Desiree Patrick MD Primary Care P rovider Encounter Details Date Type Department Care Team (Late st Contact Info) Description 03/30/2017 Historical Conversion [facility] Family Medicine [address] [facility] [place] [address] Desiree Rubi PAC [address] [place] [address] Social History Tobacco Use Types [...] on filedocumented in this encounter Care Teams Dishwasher Preparer Relationship Specialty Start Date End Date Casey Berry II, DO PCP - General 11/22/06 08/17/19 Stephani Aleman MD PCP - General Family Medicine 08/18/19 09/16/20 Bianka Loera CNP [address] [place] [address] 2 [place] [address] PCP - General Nurse Practitioner Family 09/17/20 712/31 Desiree Patrick MD [address] [place] [address] PCP - General Electrophysiology 02/23/22 03/09/22 Desiree Patrick MD [address] [place] [address] 08/09/17 Farrah Nicole APRN,CREDIT REPRESENTATIVE [address] [place] [address] 08/09/17 Bry Echevarria MD [address] [place] [address] 08/09/17 Casey Berry II, DO 08/09/17 Shruti Vergara RN RN Registered Nurse 08/27/20 documented as of this encounter Additional Source Comments PLEASE NOTE: Replies to this message will not be received.[facility] and [facility]
--- OUTSIDE RECORDS SUMMARY | 2024-02-13 00:18 | XMS_ITS | Encounter Summary ---
Author Organization [employer] Address [address] [place] [address] Care Team Providers Care Biological Lab Technician Name Role Phone Jamal CARLISLE DO, Robert William Primary Care Provide r Unavailable Desiree Patrick MD Unavailable Farrah Nicole APRN,AUTOMOBILE OR TRUCK RENTAL DISPATCHER Unavailable [phone] Bry Echevarria MD Unavailable [phone] Jamal CARLISLE DO, Robert William Unavailable Unav Stephani Diaz MD Primary Care Provider Shruti Vergara RN Unavailable Unavailable Bianka Loera CNP Primary Care Provider Desiree Patrick MD Primary Care P rovider Encounter Details Date Type Department Care Team (Late st Contact Info) Description 04/06/2017 Historical Conversion [facility] Family Medicine [address] [place] [phone] Casey Berry II, DO Social History Tobacco [...] on filedocumented in this encounter Care Teams Biological Lab Technician Relationship Specialty Start Date End Date Caesy Berry II, DO PCP - General 11/22/06 08/17/19 Stephani Aleman MD PCP - General Family Medicine 08/18/19 09/16/20 Bianka Loera CNP [address] [facility] 2 [place] [phone] PCP - General Nurse Practitioner Family 09/17/2001/10 [place] [address] [place] [phone] PCP - General Electrophysiology 02/23/22 03/09/22 Desiree Patrick MD [address] [place] [address] 08/09/17 Farrah Nicole APRN,AUTOMOBILE OR TRUCK RENTAL DISPATCHER [address] [place] [address] 08/09/17 Bry Echevarria MD [address] [place] [address] 08/09/17 Casey Berry II, DO 08/09/17 Shruti Vergara RN RN Registered Nurse 08/27/20 documented as of this encounter Additional Source Comments PLEASE NOTE: Replies to this message will not be received.Critical access hospital and [facility], [facility]
--- OUTSIDE RECORDS SUMMARY | 2024-02-13 00:18 | XMS_ITS | Encounter Summary ---
Author Organization [employer] Address [address] [place] [address] Care Team Providers Care Repairer Switchgear Name Role Phone Jamal CARLISLE DO, Robert William Primary Care Provide r Unavailable Desiree Patrick MD Unavailable Farrah Nicole APRN,SENSORY SCIENTIST Unavailable Bry Echevarria MD Unavailable Jamal CARLISLE DO, Robert William Unavailable Unav Stephani Diaz MD Primary Care Provider Shruti Vergara RN Unavailable Unavailable Bianka Loera CNP Primary Care Provider Desiree Patrick MD Primary Care P rovider Encounter Details Date Type Department Care Team (Late st Contact Info) Description 06/25/2017 Historical Conversion [facility] Family Medicine [address] [place] [address] Social History Tobacco Use Types Packs/Day Years [...] of this encounter Progress Notes * [facility], GENERICPROVIDER - 06/25/2017 12:00 AM CST Medication Reconciliation Post Discharge Name: CRISTIAN BLEDSOE Date of Discharge: 06/24/2017 Current Meds 1. Digoxin 125 MCG Oral Tablet; Therapy: (Recorded:[id number]) to Recorded 2. DilTIAZem HCl - 60 MG Oral Tablet; TAKE 1 TABLET BY MOUTH DAILY; Therapy: 14Apr2017 to (Evaluate:35Lce5699) Requested for: [id number] Recorded 3. Dofetilide 250 MCG Oral Capsule; TAKE 1 CAPSULE TWICE DAILY; Therapy: (Recorded:75Qkf4045) to Recorded 4. Metoclopramide HCl - 5 MG Oral Tablet (Reglan); TAKE 1 TABLET BY MOUTH THREE TIMES DAILY WITH MEALS; Therapy: 10Sep2014 to (Evaluate:17Sep2017) Requested for: 20May2017; Last Rx:20May2017 Ordered 5. Metoprolol Tartrate 50 MG Oral Tablet; TAKE 1 TABLET TWICE DAILY; Therapy: (Recorded:70Bbv3231) to Recorded 6. Tylenol Extra Strength 500 MG Oral Tablet; Therapy: (Recorded:84Zon9965) to Recorded 7. Warfarin Sodium 5 MG Oral Tablet (Coumadin); Take as directed by ACC; Therapy: 59Foo2840 to (Evaluate:28May2018) Requested for: 02Jun2017 Recorded Medication [...] INR checked next week. Reviewed 24 hour book critic line, when to call PCP, and when to call 911. Patient voiced understanding. STACY Rasheed Follow-Up Recommendations Follow up with the following provider(s): cardiology 1 mo I reviewed with the patient the 24 hour nurse line and ecouraged them to call if they had any questions or concerns. Patient voiced understanding. Signatures Electronically signed by : Emma Estrella RN; Jun 25 2017 11:25AM HYDRAULIC CHAIR ASSEMBLER documented in this encounter Plan of Treatment Not on file documented as of this encounter Visit Diagnoses Not on filedocumented in this encounter Care Teams Repairer Switchgear Relationship Specialty Start Date End Date Casey Berry II, DO PCP - General 11/22/06 08/17/19 Stephani Aleman MD PCP - General Family Medicine 08/18/19 09/16/20 Bianka Loera CNP [address] [facility] [place] [address] PCP - General Nurse Practitioner Family 09/17/20 7/12/31 Desiree Patrick MD [address] [place] [address] PCP - General Electrophysiology 02/23/22 03/09/22 Desiree Patrick MD [address] [place] [address] 08/09/17 Farrah Nicole APRN,SENSORY SCIENTIST [address] [place] [address] 08/09/17 Bry Echevarria MD [facility] [place] [address] 08/09/17 Casey Berry II, DO 08/09/17 Shruti Vergara RN RN Registered Nurse 08/27/20 documented as of this encounter Additional Source Comments PLEASE NOTE: Replies to this message will not be received.[facility] and [facility]
--- OUTSIDE RECORDS SUMMARY | 2024-02-13 00:18 | XMS_ITS | Encounter Summary ---
Author Organization [employer] Address [address] [place] [address] Care Team Providers Care Director Of Teacher Education Name Role Phone Jamal CARLISLE DO, Robert William Primary Care Provide r Unavailable Desiree Patrick MD Unavailable Farrah Nicloe APRN,FELT HAT POUNCING OPERATOR HAND Unavailable Bry Echevarria MD Unavailable Jamal CARLISLE DO, Robert William Unavailable Unav Stephani Diaz MD Primary Care Provider Shruti Vergara RN Unavailable Unavailable Bianka Loera CNP Primary Care Provider [phone] Desiree Patrick MD Primary Care P rovider Encounter Details Date Type Department Care Team (Late st Contact Info) Description 07/01/2017 Historical Conversion [facility] [place] [address] Bry Echevarria MD [address] [place] [address] Social History Tobacco Use Types [...] ap pointment with the anticoagulation clinic in [facility] on July 09, 2017.Follow-[facility] [place] [facility] and updated today. The medicine list was reconciled. History of Present Illness Mr Carroll is a 71-year-old white male who comes to my on-call internal medicine clinic today forfollow-up of her recent hospitalization. His primary care physician is Dr. Berry. The patient was hospitalized in [place] last week and he underwent a cardioversion with the dofetilide. He is now onthat medication twice a day. His INR was slightly elevated at 3.2 when he was up in [place]. He was told to come in today for an INR check. He has not had any problems with bleeding. We did check his anticoagulation and his INR was therapeutic at 2.8. He will follow-up with the anticoagulation clinic in [facility] in 8 days and he will [...] in atrial fibrillation.He is following up with [place] cardiology in 1 month. Allergies 1. Penicillins 2. Sulfa Drugs Vitals Vital Signs Recorded: 33Aoh2427 02:41PM Systolic 136, LUE, Sitting Diastolic 70, [...] questions appropriately. Results/Data Results, Free Text - [facility]: is therapeutic at 2.8. Signatures Electronically signed by : Bry Echevarria M.D.; Jul 01 2017 3:31PM STACK CLERK (Author) documented in this encounter Plan of Treatment Not on file documented as of this encounter Visit Diagnoses Not on filedocumented in this encounter Care Teams Director Of Teacher Education Relationship Specialty Start Date End Date Casey Berry II, DO PCP - General 11/22/06 08/17/19 Stephani Aleman MD PCP - General Family Medicine 08/18/19 09/16/20 Bianka Loera, WIDE AREA NETWORK ADMINISTRATOR [address] [place] [phone] PCP - General Nurse Practitioner Family 09/17/20 712/31 Desiree Patrick MD [address] [place] [address] PCP - General Electrophysiology 02/23/22 03/09/22 Desiree Patrick MD [address] [place] [address] 08/09/17 Farrah Nicole, MEDICAL TERMINOLOGIST,[facility] [address] [place] [address] 08/09/17 Bry Echevarria MD [address] [place] [address] [place] [phone] 08/09/17 Casey Berry II, DO 08/09/17 Shruti Vergara, RN RN Registered Nurse 08/27/20 documented as of this encounter Additional Source Comments PLEASE NOTE: Replies to this message will not be received.[facility] and [facility]
--- OUTSIDE RECORDS SUMMARY | 2024-02-13 00:18 | XMS_ITS | Encounter Summary ---
Author Organization [employer] Address [address] [place] [address] Care Team Providers Care Litigation Docket Manager Name Role Phone Jamal CARLISLE DO, Robert William Primary Care Provide r Unavailable Desiree Patrick MD Unavailable Farrah Nicole APRN,REHABILITATION CLERK Unavailable [phone] Bry Echevarria MD Unavailable Jamal CARLISLE DO, Robert William Unavailable Unav Stephani Diaz MD Primary Care Provider Shruti Vergara RN Unavailable Unavailable Bianka Loera CNP Primary Care Provider [phone] Desiree Patrick MD Primary Care P rovider Encounter Details Date Type Department Care Team (Late st Contact Info) Description 11/06/2016 Historical Conversion [facility] Family Medicine [address] [place] [address] Moon Maloney MD Social History Tobacco Use [...] filedocumented in this encounter Care Teams Litigation Docket Manager Relationship Specialty Start Date End Date Casey Berry II, DO PCP - General 11/22/06 08/17/19 Stephani Aleman MD PCP - General Family Medicine 08/18/19 09/16/20 Bianka Loera CNP [address] [place] [address] 2 [place] [phone] PCP - General Nurse Practitioner Family 09/17/2001/10 Desiree Patrick MD [address] [place] [address] PCP - General Electrophysiology 02/23/22 03/09/22 Desiree Patrick MD [address] [place] [address] 08/09/17 Farrah Nicole APRN,REHABILITATION CLERK [address] [place] [address] 08/09/17 Bry Echevarria MD [address] [place] [address] 08/09/17 Casey Berry II, DO 08/09/17 Shruti Vergara RN RN Registered Nurse 08/27/20 documented as of this encounter Additional Source Comments PLEASE NOTE: Replies to this message will not be received.[facility]
--- OUTSIDE RECORDS SUMMARY | 2024-02-13 00:19 | XMS_ITS | Encounter Summary ---
Author Organization [employer] Address [address] [place] [address] Care Team Providers Care Irish Moss Gatherer Name Role Phone Jamal CARLISLE DO, Robert William Primary Care Provide r Unavailable Desiree Patrick MD Unavailable Farrah Nicole APRN,MEDICAL UNDERWRITER Unavailable Bry Echevarria MD Unavailable [phone] Jamal CARLISLE DO, Robert William Unavailable Unav Stephani Diaz MD Primary Care Provider Shruti Vergara RN Unavailable Unavailable Bianka Loera CNP Primary Care Provider [phone] Desiree Patrick MD Primary Care P rovider Encounter Details Date Type Department Care Team (Late st Contact Info) Description 09/02/2016 Historical Conversion [facility] Family Medicine [address] [place] [address] Casey El II, DO Social History Tobacco [...] Comments Blood Pressure 151/81 09/02/2016 12:00 AM PRINTED CIRCUIT BOARD PREASSEMBLER Pulse - - Temperature - - Respiratory Rate - - Oxygen Saturation - - Inhaled Oxygen Concentration - - Weight 93.5 kg (206 lb 2.1 oz) 09/02/2016 12:00 AM PRINTED CIRCUIT BOARD PREASSEMBLER Height 185.1 cm (6' 0.87) 09/02/2016 12:00 AM Saúl WARE Body Mass Index 27.29 09/02/2016 12:00 AM PRINTED CIRCUIT BOARD PREASSEMBLER documented in this encounter Functional Status Functional [...] as needed; Therapy: 10Sep2014 to Requested for: [id number] Recorded 7. Metoprolol Tartrate 50 MG Oral Tablet; TAKE 1 TABLET TWICE DAILY; Therapy: (Recorded:21Oct2016) to Recorded 8. Tylenol Extra Strength 500 MG Oral Tablet; Therapy: (Recorded:18Nov2015) to Recorded 9. Warfarin Sodium 5 MG Oral Tablet; Take as directed by ACC; Therapy: 65Ovb9921 to (Evaluate:85Uci9557) Requested for: 15Kqh5452; Last Rx:49Wiz2189 Ordered Allergies 1. Penicillins 2. Sulfa Drugs [...] Casey El DO; Apr 16 2017 8:13AM PRINTED CIRCUIT BOARD PREASSEMBLER * Casey El II, DO - 11/30/2016 [...] healthy by no longer smoking.; Status:Complete; Done: 56Wsk9432 Counseling Total time of encounter was 20 [...] first. At this point in time, the Tank Truck Mechanic has not stated that he a risk [...] as needed; Therapy: 10Sep2014 to Requested for: 98Wlv5334 Recorded 4. Metoprolol Tartrate 50 MG Oral Tablet; TAKE 1 TABLET TWICE DAILY; Therapy: (Recorded:21Oct2016) to Recorded 5. Tylenol Extra Strength 500 MG Oral Tablet; Therapy: (Recorded:18Nov2015) to Recorded 6. Warfarin Sodium 5 MG Oral Tablet; Take as directed by [facility]; Therapy: 42Ldz0786 to (Evaluate:12Nov2017) Requested for: 17Nov2016 Recorded Allergies 1. Penicillins 2. Sulfa Drugs Vitals Recorded: 30Nov2016 10:12AM Systolic 121 Diastolic 83 Heart Rate 106 Respiration 20 Temperature 98 F Weight 94.2 kg BMI Calculated 27.49 BSA Calculated 2.18 O2 Saturation 97 Physical Exam Deferred. Signatures Casey El II, D.OWilliam/pj-30 Electronically signed by : Casey El DO; Dec 09 2016 1:14PM PRINTED CIRCUIT BOARD PREASSEMBLER * Casey El II, DO - 10/26/2016 12:00 AM CDT Assessment 1. Former smoker: 0 - 10 pack years (V15.82) (Z87.891) Atrial fibrillation/flutter. Plan Awaiting Holter monitor to see what is going to be done next with the Tank Truck Mechanic and most likely,Electrophysiology. We finally did get the results from the Holter which showed flutter and they will send him to see the Shear Tender. Reason For Visit patient in for hospital [...] Extra Strength 500 MG Oral Tablet; Therapy: (Recorded:37Tfy7115) to Recorded 6. Warfarin Sodium 5 MG Oral Tablet; Take as directed by ACC; Therapy: 25Uwh5113 to (Evaluate:76Zqb9997) Requested for: 14Jul2016 Recorded Allergies 1. Penicillins 2. Sulfa Drugs Vitals Recorded: 79Urq4447 10:40AM Systolic 117, RUE, Sitting Diastolic 73, [...] Casey El DO; Nov 06 2016 8:45AM PRINTED CIRCUIT BOARD PREASSEMBLER documented in this encounter H&P Notes * [...] Panel; Status:Hold For - Manual Activation; Requested for:69Iyy2679; Hemoglobin A1C; Status:Hold For - Manual Activation; Requested for:71Fty6460; SocHx: Former smoker: 0 - 10 pack years Former Smoker: Since tobacco use can have significant health risks, you are helping yourself and others stay healthy by no longer smoking.; Status:Complete; Done: 79Non5342 Reason For Visit H & P History [...] alcohol. 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 Colonoscopy in 2009. Pneumovax 2009. Prevnar 2015. Current Meds 1. Lisinopril 10 MG Oral Tablet; TAKE 1 TABLET BY MOUTH ONCE DAILY; Therapy: 94Pzv6592 to (Evaluate:46Krq8347) Requested for: 13Jul2016; Last Rx:13Jul2016 Ordered 2. Metoclopramide HCl - 5 MG Oral Tablet; TAKE 1 TABLET as needed; Therapy: 10Sep2014 to Requested for: 02Sep2016 Recorded 3. Metoprolol Tartrate 25 MG Oral Tablet; 1 prn a fib; Therapy: (Recorded:02Sep2016) to Requested for: 02Sep2016 Recorded 4. Tylenol Extra Strength 500 MG Oral Tablet; Therapy: (Recorded:97Elk0563) to Recorded 5. Warfarin Sodium 5 MG Oral Tablet; Take as directed by ACC; Therapy: 28Jan2016 to (Evaluate:33Efm2889) Requested for: 14Jul2016 Recorded Allergies 1. Penicillins [...] rash. /RECTAL: Done by urology. Results/Data PHQ-9 06Zjy3169 12:00AM Casey El Test Name Result Flag Reference PHQ-9 0 Alcohol & Drug Questionnaire for Adults 05Uvb1164 12:00AM Casey El Test Name Result Flag Reference Alcohol & Drug Questionnaire for Adults 3 Nurse Note Pt given heel cups by dr el. #[id number] qty 2. mquam leather repairer Recorded as Task Date: 09/14/2016 01:01 PM, [...] if you have any questions! Cherelle Gomez [facility] #[id number] Kelly Walls - 15 Sep 2016 7:16 AM TASK REASSIGNED: Previously Assigned To Kelly Walls Michelle - 15 Sep 2016 9:00 AM TASK REASSIGNED: Previously Assigned To Casey El per dr el- dx plantar fasciitis M72.2 thanks. mquam leather repairer Signatures Casey El II D.Veena/la-3 Electronically signed by : Casey El DO; Sep 11 2016 1:25PM PRINTED CIRCUIT BOARD PREASSEMBLER Electronically signed by : Casey El DO; Sep 16 2016 12:34PM PRINTED CIRCUIT BOARD PREASSEMBLER documented in this encounter Plan of Treatment Not on file documented as of this encounter Visit Diagnoses Not on filedocumented in this encounter Care Teams Irish Moss Gatherer Relationship Specialty Start Date End Date Casey El II, DO PCP - General 11/22/06 08/17/19 Stephani Aleman MD PCP - General Family Medicine 08/18/19 09/16/20 Bianka Loera BRUSH WASHER [address] [facility] 2 [place] [address] PCP - General Nurse Practitioner Family 09/17/20 7/2 12/31 Desiree Patrick MD [address] [place] [address] PCP - General Electrophysiology 02/23/22 03/09/22 Desiree Patrick MD [address] [place] [address] 08/09/17 Farrah Nicole APRN,MEDICAL UNDERWRITER [address] [place] [address] 08/09/17 Bry Echevarria MD [address] [place] [address] [place] [address] 08/09/17 Casey El II, DO 08/09/17 Shruti Vergara, RN RN Registered Nurse 08/27/20 documented as of this encounter Additional Source Comments PLEASE NOTE: Replies to this message will not be received.[facility]"
--- OUTSIDE RECORDS SUMMARY | 2024-02-13 00:19 | XMS_ITS | Encounter Summary ---
Author Organization [employer] Address [address] [place] [address] Care Team Providers Care Vp Training Name Role Phone Jamal CARLISLE DO, Robert William Primary Care Provide r Unavailable Desiree Patrick MD Unavailable Farrah Nicole APRN,GROUP HOME SUPERVISOR Unavailable Bry Echevarria MD Unavailable Jamal CARLISLE DO, Robert William Unavailable Unav Stephani Diaz MD Primary Care Provider Shruti Vergara RN Unavailable Unavailable Bianka Loera CNP Primary Care Provider Desiree Patrick MD Primary Care P rovider Encounter Details Date Type Department Care Team (Late st Contact Info) Description 11/07/2015 Historical Conversion [facility] Family Medicine [address] [place] [address] Moon Maloney MD Social History Tobacco Use [...] Body Mass Index 26.65 08/28/2015 12:00 AM ROUTE SALESMAN AND DRIVER documented in this encounter Progress Notes * Moon Maloney MD - 11/06/2016 12:00 AM CDT UROLOGY [facility] CRISTIAN BLEDSOE : 1945 HX: [id number] DOS: 11/06/2016 SUBJECTIVE: Cristian and his are here to discuss the results of the recent prostate biopsy. We ended up taking Anurag off his Coumadin and doing a prostate biopsy because of a positive PATTERN ILLUSTRATOR-3 test and an elevated PSA, so he [...] ARPIT. The right mid showed prostate adenocarcinoma, Durham 3+4 involving 20% two of two cores were positive. At the right apex, a Durham 3+4 or 7, involving 5% one of [...] prostatectomy. Moon Maloney M.D./la-1 cc: Jose Winslow M.D./[facility] cc: Casey Berry II, D.O./[facility] Electronically signed by:Moon Maloney M.D. Nov 09 2016 1:49PM ROUTE SALESMAN AND DRIVER * Moon Maloney MD - 10/23/2016 12:00 AM CDT [facility]OLOGY [facility] CRISTIAN BLEDSOE : 1945 HX: [id number] DOS: 10/23/2016 SUBJECTIVE: Cristian is here for a prostate biopsy. I saw Cristian in August. PSA has started to go up.He had a little bit of an elevated PSA and elevated PSA velocity. We did a PATTERN ILLUSTRATOR-3 test. It did just come back positive. [...] negative. IMPRESSION: 1. Elevated PSA and positive PATTERN ILLUSTRATOR-3 test. PLAN: I told Anurag to take [...] Moon Maloney M.D./la-17 cc: Casey Berry II, D.OWilliam/[facility] Electronically signed by:Moon Maloney M.D. Oct 26 2016 12:13PM ROUTE SALESMAN AND DRIVER * Moon Maloney MD - 08/27/2016 12:00 AM CST UROLOGY CRISTIAN BLEDSOE : 1945 HX: [id number] DOS: 08/27/2016 SUBJECTIVE: Cristian comes to see [...] because we are going to do a PATTERN ILLUSTRATOR-3 test. LABORATORY DATA: AUA symptom score is 1. He has absolutely no trouble urinating. PSA is 5.4. IMPRESSION: 1. Elevated PSA velocity. PLAN: We are going to go ahead and get a PATTERN ILLUSTRATOR-3 test because his velocity is really if [...] going to go ahead and get a PATTERN ILLUSTRATOR-3 test today. Obviously if that is positive, [...] course risks of bleeding. However, if the PATTERN ILLUSTRATOR-3 is negative, then I would just see him in six months for a PSA. Total time spent with the patient was 25 minutes with greater than 50% in counseling. Moon Maloney M.D./la-21 cc: Casey Berry II, D.OWilliam/[facility] Electronically signed by:Moon Maloney M.D. Sep 18 2016 1:34PM ROUTE SALESMAN AND DRIVER * Moon Maloney MD - 02/11/2016 12:00 AM CDT UROLOGY CRISTIAN BLEDSOE : 1945 HX: [id number] DOS: 02/11/2016 SUBJECTIVE: Cristian comes to see [...] Moon Maloney M.D./la-2 cc: Casey Berry, II, D.O./[facility] Electronically signed by:Moon Maloney M.D. Feb 24 2016 9:43AM ROUTE SALESMAN AND DRIVER * Moon Maloney MD - 11/07/2015 12:00 AM CDT UROLOGY CRISTIAN BLEDSOE : 1945 HX: [id number] DOS: 11/07/2015 REFERRING PROVIDER: Dr. Berry. HISTORY [...] He is a former smoker, retired from [employer], he is . FAMILY HISTORY: Negative for [...] Moon Maloney M.D./la-29 cc: Casey Berry II, D.O./[facility] Electronically signed by:Moon Maloney M.D. Nov 25 2015 10:34AM ROUTE SALESMAN AND DRIVER documented in this encounter Plan of Treatment Not on file documented as of this encounter Visit Diagnoses Not on filedocumented in this encounter Care Teams Vp Training Relationship Specialty Start Date End Date Casey Berry II, DO PCP - General 11/22/06 08/17/19 Stephani Aleman MD PCP - General Family Medicine 08/18/19 09/16/20 Bianka Loera CNP [address] [facility] 2 [place] [address] PCP - General Nurse Practitioner Family 09/17/2001/10 [place] [address] [place] [address] PCP - General Electrophysiology 02/23/22 03/09/22 Desiree Patrick MD [address] [facility] [place] [address] 08/09/17 Farrah Nicole APRN,GROUP HOME SUPERVISOR [address] [facility] [place] [address] 08/09/17 Bry Echevarria MD [address] [place] [address] [facility] [place] [address] 08/09/17 Casey Berry II, DO 08/09/17 Shruti Vergara RN RN Registered Nurse 08/27/20 documented as of this encounter Additional Source Comments PLEASE NOTE: Replies to this message will not be received.[facility] and [facility]
--- OUTSIDE RECORDS SUMMARY | 2024-02-13 00:19 | XMS_ITS | Encounter Summary ---
Author Organization [employer] Address [address] [place] [address] Care Team Providers Care It Service Delivery Manager Name Role Phone Jamal CARLISLE DO, Robert William Primary Care Provide r Unavailable Desiree Patrick MD Unavailable Farrah Nicole APRN,POWER PLANT TECHNICIAN Unavailable Bry Echevarria MD Unavailable Jamal CARLISLE DO, Robert William Unavailable Unav Stephani Diaz MD Primary Care Provider Shruti Vergara RN Unavailable Unavailable Bianka Loera CNP Primary Care Provider [phone] Desiree Patrick MD Primary Care P rovider Encounter Details Date Type Department Care Team (Late st Contact Info) Description 01/31/2016 Historical Conversion [facility] Family Medicine [address] [place] [id number] Social History Tobacco Use Types Packs/Day Years [...] as of this encounter Procedure Notes * [facility] DON[facility] - 01/14/2017 12:00 AM CDTAssociated Order(s): ANTICOAGULATION [facility]tico[facility] Name: CRISTIAN BLEDSOE : 1945 [...] by:Tiffani Carrero RN Jan 14 2017 11:11AM RELEASE OF INFORMATION CLERK * [facility] MICHELLEPROVIBRANDO - 12/23/2016 12:00 AM CDTAssociated Order(s): ANTICOAGULATION [facility] Name: CRISTIAN BLEDSOE : 1945 [...] by:Tiffani Carrero RN Dec 23 2016 11:30AM RELEASE OF INFORMATION CLERK * [facility], GENERICPROVIDER - 12/02/2016 12:00 AM CDTAssociated Order(s): ANTICOAGULATION [facility] Name: CRISTIAN BLEDSOE : 1945 [...] by:Tiffani Carrero RN Dec 02 2016 4:10PM RELEASE OF INFORMATION CLERK * [facility], GENERICPROVIDER - 11/17/2016 12:00 AM CDTAssociated Order(s): ANTICOAGULATION [facility] Name: CRISTIAN BLEDSOE : 1945 [...] has an appointment next week with an die barber to discuss a possible ablation. Patient denies any medication changes. INR tested today is therapeutic at 2.7 with the recommended range of 2.0 to 3.0. Patient will continue Coumadin at 5 mg daily with an INR recheck in two weeks. Patient verbalizes understanding. Electronically signed by:Tiffani Carrero RN Nov 17 2016 9:36AM RELEASE OF INFORMATION CLERK * [facility] GENERICPROEducationSuperHighwayDER - 11/10/2016 12:00 AM CDTAssociated Order(s): ANTICOAGULATION [facility] Name: CRISTIAN BLEDSOE : 1945 [...] by:Tiffani Carrero RN Nov 10 2016 2:41PM RELEASE OF INFORMATION CLERK * [facility] GENERICPROVIDER - 10/29/2016 12:00 AM CDTAssociated Order(s): ANTICOAGULATION Anticoagulation [facility] Name: CRISTIAN BLEDSOE : 1945 DOS: 10/29/2016 [...] by:Tiffani Carrero RN Oct 29 2016 3:44PM RELEASE OF INFORMATION CLERK * [facility] - 10/23/2016 12:00 AM CDTAssociated Order(s): ANTICOAGULATION [facility] Name: CRISTIAN BLEDSOE : 1945 DOS: 10/23/2016 This is a patient of Dr. Berry. He is taking anticoagulation for a diagnosis of atrial fibrillation.He is scheduled for a prostate biopsy today at the [facility] with Dr. Maloney. Patient had his INR checked in the [facility] lab prior to his procedure [...] by:Tiffani Carrero RN Oct 26 2016 9:49AM RELEASE OF INFORMATION CLERK * MICHELLE AUSTINPROLUBNA - 10/13/2016 12:00 AM CDTAssociated Order(s): ANTICOAGULATION [facility] Name: CRISTIAN BLEDSOE : 1945 [...] will have his INR checked at the [facility] prior to his biopsy which [...] by:Tiffani Carrero RN Oct 13 2016 12:13PM RELEASE OF INFORMATION CLERK AMENDMENTS: 1. Patient states that he was in the [facility] ER on October 08 with a [...] by:Tiffani Carrero RN Oct 13 2016 12:36PM RELEASE OF INFORMATION CLERK * [facility], GENERICPROLUBNA - 09/15/2016 12:00 AM CSTAssociated Order(s): ANTICOAGULATION Anticoagulation [facility] Name: CRISTIAN BLEDSOE : 1945 DOS: 09/15/2016 [...] by:Tiffani Carrero RN Sep 15 2016 2:04PM RELEASE OF INFORMATION CLERK * [facility] GENER[facility] - 08/18/2016 12:00 AM CSTAssociated Order(s): ANTICOAGULATION Anticoagulation [facility] Name: CRISTIAN BLEDSOE : 1945 DOS: 08/18/2016 [...] by:Tiffani Carrero RN Aug 18 2016 2:21PM RELEASE OF INFORMATION CLERK * [facility] GENERICPROVIBRANDO - 07/28/2016 12:00 AM CSTAssociated Order(s): ANTICOAGULATION Anticoagulation [facility] Name: CRISTIAN BLEDSOE : 1945 DOS: 07/28/2016 [...] by:Tiffani Carrero RN Jul 28 2016 11:06AM RELEASE OF INFORMATION CLERK * [facility], GENERICPROVIDER - 07/14/2016 12:00 AM CSTAssociated Order(s): ANTICOAGULATION Anticoagulation [facility] Name: CRISTIAN BLEDSOE : 1945 DOS: 07/14/2016 [...] by:Tiffani Carrero RN Jul 14 2016 11:21AM RELEASE OF INFORMATION CLERK * [facility], GENERICPROVIBRANDO - 06/30/2016 12:00 AM CSTAssociated Order(s): ANTICOAGULATION Anticoagulation [facility] Name: CRISTIAN BLEDSOE : 1945 DOS: 06/30/2016 [...] by:Tiffani Carrero RN Jun 30 2016 9:24AM RELEASE OF INFORMATION CLERK * [facility] - 05/20/2016 12:00 AM CSTAssociated Order(s): ANTICOAGULATION Anticoagulation [facility] Name: CRISTIAN BLEDSOE : 1945 DOS: 05/20/2016 [...] by:Tiffani Carrero RN May 20 2016 3:59PM RELEASE OF INFORMATION CLERK * [facility] MICHELLEPROGINABRANDO - 04/15/2016 12:00 AM CDTAssociated Order(s): ANTICOAGULATION [facility] Name: CRISTIAN BLEDSOE : 1945 [...] by:Tiffani Carrero RN Apr 15 2016 5:55PM RELEASE OF INFORMATION CLERK * [facility] MICHELLEPROVIBRANDO - 03/18/2016 12:00 AM CDTAssociated Order(s): ANTICOAGULATION [facility] Name: CRISTIAN BLEDSOE : 1945 [...] by:Tiffani Carrero RN Mar 18 2016 9:42AM RELEASE OF INFORMATION CLERK * [facility] AUSTINPROLUBNA - 03/09/2016 12:00 AM [...] Tiffani Carrero RN; Mar 09 2016 9:59AM RELEASE OF INFORMATION CLERK * [facility] MICHELLEPROVIBRANDO - 02/27/2016 12:00 AM CDTAssociated Order(s): ANTICOAGULATION [facility] Name: CRISTIAN BLEDSOE : 1945 [...] by:Tiffani Carrero RN Feb 27 2016 12:04PM RELEASE OF INFORMATION CLERK * [facility] GENERICPROVIBRANDO - 02/12/2016 12:00 AM CDTAssociated Order(s): ANTICOAGULATION [facility] Name: CRISTIAN BLEDSOE : 1945 [...] by:Tiffani Carrero RN Feb 12 2016 9:02AM RELEASE OF INFORMATION CLERK * [facility] GENERICPROVIBRANDO - 02/04/2016 12:00 AM CDTAssociated Order(s): ANTICOAGULATION Anticoagulation [facility] Name: CRISTIAN BLEDSOE : 1945 DOS: 02/04/2016 [...] by:Tiffani Carrero RN Feb 04 2016 9:45AM RELEASE OF INFORMATION CLERK * [facility], GENERICPROVIDER - 01/31/2016 12:00 AM [...] by:Carlene Hargrove RN Jan 31 2016 2:45PM RELEASE OF INFORMATION CLERK documented in this encounter Plan of [...] * ANTICOAGULATION (01/14/2017) Narrative Procedure Note [facility], GENERICPROVIDER - 01/14/2017 12:00 AM CDT [facility]tico[facility] Name: CRISTIAN BLEDSOE : 1945 [...] by:Tiffani Carrero RN Jan 14 2017 11:11AM RELEASE OF INFORMATION CLERK [facility] OTHER * ANTICOAGULATION (12/23/2016) Narrative Procedure Note [facility], [facility] - 12/23/2016 12:00 AM CDT Anticoagulation [facility] Name: CRISTIAN BLEDSOE : 1945 DOS: 12/23/2016 This is a patient of Dr. Berry. He is here today for an anticoagulationassessment and INR check for a diagnosis of atrial fibrillation. Patientstates that he has been feeling well. He reports that he met with [facility] and will begin radiation on January 06. [...] by:Tiffani Carrero RN Dec 23 2016 11:30AM RELEASE OF INFORMATION CLERK [facility] OTHER * ANTICOAGULATION (12/02/2016) Narrative Procedure Note [facility] - 12/02/2016 12:00 AM CDT Anticoagulation [facility] Name: CRISTIAN BLEDSOE : 1945 DOS: 12/02/2016 [...] by:Tiffani Carrero RN Dec 02 2016 4:10PM RELEASE OF INFORMATION CLERK [facility] OTHER * ANTICOAGULATION (11/17/2016) Narrative Procedure Note [facility] - 11/17/2016 12:00 AM CDT Anticoagulation [facility] Name: CRISTIAN BLEDSOE : 1945 DOS: 11/17/2016 [...] by:Tiffani Carrero RN Nov 17 2016 9:36AM RELEASE OF INFORMATION CLERK [facility] OTHER * ANTICOAGULATION (11/10/2016) Narrative Procedure Note [facility] - 11/10/2016 12:00 AM CDT Anticoagulation [facility] Name: CRISTIAN BLEDSOE : 1945 DOS: 11/10/2016 This is a patient of Dr. Berry. He is here today for an anticoagulationassessment and INR check for a diagnosis of atrial fibrillation. Patientstates that he has been feeling well. He reports that he has beendiagnosis with prostate cancer and will be meeting with Dr. Conroy at [facility] to find out information regarding radiation therapy. Patientdenies any medication changes. INR tested today is elevated at 3.6 withthe recommended range of 2.0 to 3.0. Patient will adjust Coumadin with ahold today (11/10), then take 5 mg daily with an INR recheck in one week.Patient verbalizes understanding. Electronically signed by:Tiffani Carrero RN Nov 10 2016 2:41PM RELEASE OF INFORMATION CLERK [facility] OTHER * ANTICOAGULATION (10/29/2016) Narrative Procedure Note [facility] - 10/29/2016 12:00 AM CDT Anticoagulation [facility] Name: CRISTIAN BLEDSOE : 1945 DOS: 10/29/2016 [...] by:Tiffani Carrero RN Oct 29 2016 3:44PM RELEASE OF INFORMATION CLERK [facility] OTHER * ANTICOAGULATION (10/23/2016) Narrative Procedure Note [facility] - 10/23/2016 12:00 AM CDT Anticoagulation [facility] Name: CRISTIAN BLEDSOE : 1945 DOS: 10/23/2016 This is a patient of Dr. Berry. He is taking anticoagulation for adiagnosis of atrial fibrillation. He is scheduled for a prostate biopsytoday at the [facility] with Dr. Maloney. Patient had his INR checkedin the [facility] lab prior to his procedure [...] by:Tiffani Carrero RN Oct 26 2016 9:49AM RELEASE OF INFORMATION CLERK [facility] OTHER * ANTICOAGULATION (10/13/2016) Narrative Procedure Note [facility] - 10/13/2016 12:00 AM CDT [facility] Name: CRISTIAN BLEDSOE : 1945 [...] [facility] [...] by:Tiffani Carrero RN Oct 13 2016 12:13PM RELEASE OF INFORMATION CLERK AMENDMENTS: 1. Patient states that he was in the [facility] ER on October 08 with arapid [...] by:Tiffani Carrero RN Oct 13 2016 12:36PM RELEASE OF INFORMATION CLERK [facility] OTHER * ANTICOAGULATION (09/15/2016) Narrative Procedure Note [facility] - 09/15/2016 12:00 AM CST Antico[facility] Name: CRISTIAN BLEDSOE : 1945 [...] by:Tiffani Carrero RN Sep 15 2016 2:04PM RELEASE OF INFORMATION CLERK [facility] OTHER * ANTICOAGULATION (08/18/2016) Narrative Procedure Note [facility] - 08/18/2016 12:00 AM CST Anticoagulation [facility] Name: CRISTIAN BLEDSOE : 1945 DOS: 08/18/2016 [...] by:Tiffani Carrero RN Aug 18 2016 2:21PM RELEASE OF INFORMATION CLERK [facility] OTHER * ANTICOAGULATION (07/28/2016) Narrative Procedure Note [facility] - 07/28/2016 12:00 AM CST Anticoagulation [facility] Name: CRISTIAN BLEDSOE : 1945 DOS: 07/28/2016 [...] by:Tiffani Carrero RN Jul 28 2016 11:06AM RELEASE OF INFORMATION CLERK [facility] OTHER * ANTICOAGULATION (07/14/2016) Narrative Procedure Note [facility] - 07/14/2016 12:00 AM CST Anticoagulation [facility] Name: CRISTIAN BLEDSOE : 1945 DOS: 07/14/2016 [...] by:Tiffani Carrero RN Jul 14 2016 11:21AM RELEASE OF INFORMATION CLERK [facility] OTHER * ANTICOAGULATION (06/30/2016) Narrative Procedure Note [facility] - 06/30/2016 12:00 AM CST Anticoagulation [facility] Name: CRISTIAN BLEDSOE : 1945 DOS: 06/30/2016 [...] by:Tiffani Carrero RN Jun 30 2016 9:24AM RELEASE OF INFORMATION CLERK [facility] OTHER * ANTICOAGULATION (05/20/2016) Narrative Procedure Note [facility] - 05/20/2016 12:00 AM CST Anticoagulation [facility] Name: CRISTIAN BLEDSOE : 1945 DOS: 05/20/2016 [...] by:Tiffani Carrero RN May 20 2016 3:59PM RELEASE OF INFORMATION CLERK [facility] OTHER * ANTICOAGULATION (04/15/2016) Narrative Procedure Note [facility] - 04/15/2016 12:00 AM CDT Anticoagulation [facility] Name: CRISTIAN BLEDSOE : 1945 DOS: 04/15/2016 [...] by:Tiffani Carrero RN Apr 15 2016 5:55PM RELEASE OF INFORMATION CLERK [facility] OTHER * ANTICOAGULATION (03/18/2016) Narrative Procedure Note [facility] - 03/18/2016 12:00 AM CDT Anticoagulation [facility] Name: CRISTIAN BLEDSOE : 1945 DOS: 03/18/2016 [...] by:Tiffani Carrero RN Mar 18 2016 9:42AM RELEASE OF INFORMATION CLERK [facility] OTHER * ANTICOAGULATION (03/09/2016) Narrative Procedure Note [facility] - 03/09/2016 12:00 AM CDT ACC Comments [...] Tiffani Carrero RN; Mar 09 2016 9:59AMCST [facility] OTHER * ANTICOAGULATION (02/27/2016) Narrative Procedure Note [facility] - 02/27/2016 12:00 AM CDT Anticoagulation [facility] Name: CRISTIAN BLEDSOE : 1945 DOS: 02/27/2016 [...] by:Tiffani Carrero RN Feb 27 2016 12:04PM RELEASE OF INFORMATION CLERK [facility] OTHER * ANTICOAGULATION (02/12/2016) Narrative Procedure Note [facility] - 02/12/2016 12:00 AM CDT Anticoagulation [facility] Name: CRISTIAN BLEDSOE : 1945 DOS: 02/12/2016 [...] by:Tiffani Carrero RN Feb 12 2016 9:02AM RELEASE OF INFORMATION CLERK [facility] OTHER * ANTICOAGULATION (02/04/2016) Narrative Procedure Note [facility] - 02/04/2016 12:00 AM CDT Anticoagulation [facility] Name: CRISTIAN BLEDSOE : 1945 DOS: 02/04/2016 [...] by:Tiffani Carrero RN Feb 04 2016 9:45AM RELEASE OF INFORMATION CLERK [facility] OTHER * ANTICOAGULATION (01/31/2016) Narrative Procedure Note [facility] - 01/31/2016 12:00 AM CDT Name: [...] by:Carlene Hargrove RN Jan 31 2016 2:45PM RELEASE OF INFORMATION CLERK [facility] OTHER documented in this encounter Visit Diagnoses Not on filedocumented in this encounter Care Teams It Service Delivery Manager Relationship Specialty Start Date End Date Casey Berry II, DO PCP - General 11/22/06 08/17/19 Stephani Aleman MD PCP - General Family Medicine 08/18/19 09/16/20 Bianka Loera CNP [address] [place] [phone] PCP - General Nurse Practitioner Family 09/17/20 7/2 12/31 Desiree Patrick MD [address] [place] [address] PCP - General Electrophysiology 02/23/22 03/09/22 Desiree Patrick MD [address] [place] [address] 08/09/17 Farrah Nicole APRN,POWER PLANT TECHNICIAN [address] [place] [address] 08/09/17 Bry Echevarria MD [address] [place] [address] [place] [address] 08/09/17 Casey Berry II, DO 08/09/17 Shruti Vergara, RN RN Registered Nurse 08/27/20 documented as of this encounter Additional Source Comments PLEASE NOTE: Replies to this message will not be received.[facility]
--- OUTSIDE RECORDS SUMMARY | 2024-02-13 00:19 | XMS_ITS | Encounter Summary ---
Author Organization [employer] Address [address] [place] [address] Care Team Providers Care Auto Body Straightener Name Role Phone Jamal CARLISLE DO, Robert William Primary Care Provide r Unavailable Desriee Patrick MD Unavailable Farrah Nicole APRN,TEST AND RESEARCH REACTOR OPERATOR Unavailable Bry Echevarria MD Unavailable [phone] Jamal CARLISLE DO, Robert William Unavailable Unav Stephani Diaz MD Primary Care Provider [phone] Shruti Vergara RN Unavailable Unavailable Bianka Loera CNP Primary Care Provider Desiree Patrick MD Primary Care P rovider Encounter Details Date Type Department Care Team (Late st Contact Info) Description 06/24/2016 Historical Conversion [facility] Family Medicine [address] [place] [id number] Casey Berry II, DO Social History Tobacco [...] Comments Blood Pressure 115/76 06/24/2016 12:00 AM DRYING SUPERVISOR Pulse - - Temperature - - Respiratory Rate - - Oxygen Saturation - - Inhaled Oxygen Concentration - - Weight 91.5 kg (201 lb 11.5 oz) 016 12:00 AM DRYING SUPERVISOR Height - - Body Mass Index 26.61 [...] on filedocumented in this encounter Care Teams Auto Body Straightener Relationship Specialty Start Date End Date Casey Berry II, DO PCP - General 11/22/06 08/17/19 Stephani Aleman MD PCP - General Family Medicine 08/18/19 09/16/20 Bianka Loera CNP [address] [place] [phone] PCP - General Nurse Practitioner Family 09/17/2001/10 Desiree Patrick MD [address] [place] [phone] PCP - General Electrophysiology 02/23/22 03/09/22 Desiree Patrick MD [address] [place] [place] [address] 08/09/17 Farrah Nicole APRN,TEST AND RESEARCH REACTOR OPERATOR [address] [place] [address] 08/09/17 Bry Echevarria MD [address] [place] [address] [place] [address] 08/09/17 Casey Berry II, DO 08/09/17 Shruti Vergara RN RN Registered Nurse 08/27/20 documented as of this encounter Additional Source Comments PLEASE NOTE: Replies to this message will not be received.[facility]
--- OUTSIDE RECORDS SUMMARY | 2024-02-13 00:19 | XMS_ITS | Encounter Summary ---
Author Organization [employer] Address [address] [place] [address] Care Team Providers Care Hammerer Name Role Phone Jamal CARLISLE DO, Robert William Primary Care Provide r Unavailable Desiree Patrick MD Unavailable Farrah Nicole APRN,RN [facility] Unavailable Bry Echevarria MD Unavailable [phone] Jamal CARLISLE DO, Robert William Unavailable Unav Stephani Diaz MD Primary Care Provider Shruti Vergara RN Unavailable Unavailable Bianka Loera CNP Primary Care Provider [phone] Desiree Patrick MD Primary Care P rovider Encounter Details Date Type Department Care Team (Late st Contact Info) Description 01/28/2016 Historical Conversion [facility] Family Medicine [address] [place] [id number] Social History Tobacco Use Types Packs/Day Years [...] as of this encounter Procedure Notes * [facility] - 01/28/2016 12:00 AM CDTAssociated Order(s): [...] daily, Reglan 5 mg TID PRN, and [id number] mg BID for pain in right knee. [...] by:Razia Duarte RN Jan 28 2016 12:46PM COURIER DRIVER documented in this encounter Plan of Treatment Not on file documented as of this encounter Procedures Procedure Name Priority Date/Time Associated Diagnosis Comments ANTICOAGULATION 01/28/2016 documented in this encounter Results * ANTICOAGULATION (01/28/2016) Narrative Procedure Note [facility] GENERICPROVID[facility] - 01/28/2016 12:00 AM CDT Name: CRISTIAN WILKINSN: [id number] : 1945 DOS: 01/28/2016 Cristian ia a [...] and approximately 200 lbs. [facility]. He [...] summer as he is apart of a [employer]. Drinks green tea onoccasion; encouraged to avoid [...] by:Razia Duarte RN Jan 28 2016 12:46PM COURIER DRIVER Genericprovider [facility] OTHER documented in this encounter Visit Diagnoses Not on filedocumented in this encounter Care Teams Hammerer Relationship Specialty Start Date End Date Casey Berry II, DO PCP - General 11/22/06 08/17/19 Stephani Aleman MD PCP - General Family Medicine 08/18/19 09/16/20 Bianka Loera FARMWORKER GENERAL [address] [place] [phone] PCP - General Nurse Practitioner Family 09/17/2001/10 Desiree Patrick MD [address] [place] [address] PCP - General Electrophysiology 02/23/22 03/09/22 Desiree Patrick MD [address] [place] [address] 08/09/17 Farrah Nicole APRN,RN [facility] [address] [place] [address] 08/09/17 Bry Echevarria MD [address] [place] [address] 08/09/17 Casey Berry II, DO 08/09/17 Shruti Vergara RN RN Registered Nurse 08/27/20 documented as of this encounter Additional Source Comments PLEASE NOTE: Replies to this message will not be received.[facility]
--- OUTSIDE RECORDS SUMMARY | 2024-02-13 00:19 | XMS_ITS | Encounter Summary ---
Author Organization [employer] Address [address] [place] [address] Care Team Providers Care Chip Mixer Name Role Phone Jamal CRALISLE DO, Robert William Primary Care Provide r Unavailable Desiree Patrick MD Unavailable Farrah Nicole APRN,COMPUTER ENGINEERING PROFESSOR Unavailable Bry Echevarria MD Unavailable Jamal CARLISLE DO, Robert William Unavailable Unav Stephani Diaz MD Primary Care Provider Shruti Vergara RN Unavailable Unavailable Bianka Loera CNP Primary Care Provider [phone] Desiree Patrick MD Primary Care P rovider Encounter Details Date Type Department Care Team (Late st Contact Info) Description 02/11/2016 Historical Conversion [facility] Family Medicine [address] [place] [address] Moon Maloney MD Social History Tobacco Use [...] on filedocumented in this encounter Care Teams Chip Mixer Relationship Specialty Start Date End Date Casey Berry II, DO PCP - General 11/22/06 08/17/19 Stephani Aleman MD PCP - General Family Medicine 08/18/19 09/16/20 Bianka Loera CNP [address] [place] [phone] PCP - General Nurse Practitioner Family 09/17/2001/10 [place] [address] [place] [phone] PCP - General Electrophysiology 02/23/22 03/09/22 Desiree Patrick MD [address] [facility] [place] [address] 08/09/17 Farrah Nicole APRN,[facility] [address] [facility] [place] [address] 08/09/17 Bry Echevarria MD [facility] [place] [address] 08/09/17 Casey Berry II, DO 08/09/17 Shruti Vergara RN RN Registered Nurse 08/27/20 documented as of this encounter Additional Source Comments PLEASE NOTE: Replies to this message will not be received.[facility]
--- OUTSIDE RECORDS SUMMARY | 2024-02-13 00:19 | XMS_ITS | Encounter Summary ---
Author Organization [employer] Address [address] [place] [address] Care Team Providers Care Rubber Belt Splicer Name Role Phone Jamal CARLISLE DO, Robert William Primary Care Provide r Unavailable Desiree Patrick MD Unavailable Farrah Nicole APRN,MAINTENANCE ELECTRICIAN Unavailable Bry Echevarria MD Unavailable [phone] Jamal CARLISLE DO, Robert William Unavailable Unav xiable Stephani Aleman MD Primary Care Provider Shruti Vergara RN Unavailable Unavailable Bianka Loera CNP Primary Care Provider [phone] Desiree Patrick MD Primary Care P rovider Encounter Details Date Type Department Care Team (Late st Contact Info) Description 10/09/2016 Historical Conversion [facility] Family Medicine [address] [facility] [place] [address] Jana Aleman APRN,CAFE LEAD [address] [place] [address] Social History Tobacco Use Types [...] this encounter Progress Notes * Jana Aleman, CANE PACKER,CAFE LEAD - 10/09/2016 12:00 AM CDT Assessment 1. [...] [facility] He is instructed to return should his [...] Thao Phone Number to Contact Patient: : [phone] to Provider, Practice or Agency: : Either Shanda Mark or [facility] Reason For Visit Patient in [...] 1 TABLET BY MOUTH ONCE DAILY; Therapy: 18Rhb4302 to (Evaluate:38Iam5290) Requested for: 13Jul2016; Last Rx:13Jul2016 Ordered 3. Metoclopramide HCl - 5 MG Oral Tablet; TAKE 1 TABLET as needed; Therapy: 10Sep2014 to Requested for: 79Ucw3232 Recorded 4. Metoprolol Tartrate 25 MG Oral Tablet; 1 prn a fib; Therapy: (Recorded:62Ubd8727) to Requested for: 66Egm0557 Recorded 5. Tylenol Extra Strength 500 MG Oral Tablet; Therapy: (Recorded:20Pcl2815) to Recorded 6. Warfarin Sodium 5 MG Oral Tablet; Take as directed by [facility]; Therapy: 10Rma6153 to (Evaluate:54Erv7986) Requested for: 14Jul2016 Recorded Allergies 1. Penicillins [...] RN CNP RN,NIKKI; Oct 18 2016 1:54PM BASEBALL HAND SEWER Electronically signed by : Casey Berry DO; Oct 22 2016 1:20PM BASEBALL HAND SEWER documented in this encounter Plan of Treatment Not on file documented as of this encounter Visit Diagnoses Not on filedocumented in this encounter Care Teams Rubber Belt Splicer Relationship Specialty Start Date End Date Casey Berry II, DO PCP - General 11/22/06 08/17/19 Stephani Aleman MD PCP - General Family Medicine 08/18/19 09/16/20 Bianka Loera CNP [address] [facility] [address] [place] [address] PCP - General Nurse Practitioner Family 09/17/20 712/31 [place] [address] [place] [address] [place] [address] PCP - General Electrophysiology 02/23/22 03/09/22 Desiree Patrick MD [address] [place] [address] 08/09/17 Farrah Nicole, CANE PACKER,MAINTENANCE ELECTRICIAN [address] [place] [address] 08/09/17 Bry Echevarria MD [address] [place] [address] [place] [address] 08/09/17 Casey Berry II, DO 08/09/17 Shruti Vergara RN RN Registered Nurse 08/27/20 documented as of this encounter Additional Source Comments PLEASE NOTE: Replies to this message will not be received.[facility] and [facility]
--- OUTSIDE RECORDS SUMMARY | 2024-02-13 00:19 | XMS_ITS | Encounter Summary ---
Author Organization [employer] Address [address] [place] [address] Care Team Providers Care School Bus Mechanic Name Role Phone Jamal CARLISLE DO, Robert William Primary Care Provide r Unavailable Desiree Patrick MD Unavailable Farrah Nicole APRN,WELDER PLASMA ARC Unavailable [phone] Bry Echevarria MD Unavailable [phone] Jamal CARLISLE DO, Robert William Unavailable Unav Stephani Diaz MD Primary Care Provider Shruti Vergara RN Unavailable Unavailable Bianka Loera CNP Primary Care Provider Desiree Patrick MD Primary Care P rovider Encounter Details Date Type Department Care Team (Late st Contact Info) Description 12/11/2015 Historical Conversion [facility] Family Medicine [address] [place] [address] Casey Berry II, DO Social History Tobacco [...] on filedocumented in this encounter Care Teams School Bus Mechanic Relationship Specialty Start Date End Date Casey Berry II, DO PCP - General 11/22/06 08/17/19 Stephani Aleman MD PCP - General Family Medicine 08/18/19 09/16/20 Bianka Loera CNP [address] [place] [phone] PCP - General Nurse Practitioner Family 09/17/2001/10 [place] [address] [place] [address] PCP - General Electrophysiology 02/23/22 03/09/22 Desiree Patrick MD [address] [place] [address] 08/09/17 Farrah Nicole APRN,[facility] [address] [place] [address] 08/09/17 Bry Echevarria MD [address] [place] [address] [place] [address] 08/09/17 Casey Berry II, DO 08/09/17 Shruti Vergara RN RN Registered Nurse 08/27/20 documented as of this encounter Additional Source Comments PLEASE NOTE: Replies to this message will not be received.[facility] and [facility]
--- OUTSIDE RECORDS SUMMARY | 2024-02-13 00:19 | XMS_ITS | Encounter Summary ---
Author Organization [employer] Address [address] [place] [address] Care Team Providers Care Program Coordinator For Residence Life Name Role Phone Jamal CARLISLE DO, Robert William Primary Care Provide r Unavailable Desiree Patrick MD Unavailable Farrah Nicole APRN,RAYON TESTER Unavailable Bry Echevarria MD Unavailable [phone] Jamal CARLISLE DO, Robert William Unavailable Unav Stephani Diaz MD Primary Care Provider Shruti Vergara RN Unavailable Unavailable Bianka Loera CNP Primary Care Provider Desiree Patrick MD Primary Care P rovider Encounter Details Date Type Department Care Team (Late st Contact Info) Description 03/10/2016 Historical Conversion [facility] Family Medicine [address] [place] [address] Casey Berry II, DO Social History Tobacco [...] on filedocumented in this encounter Care Teams Program Coordinator For Residence Life Relationship Specialty Start Date End Date Casey eBrry II, DO PCP - General 11/22/06 08/17/19 Stephani Aleman MD PCP - General Family Medicine 08/18/19 09/16/20 Bianka Loera CNP [address] [place] [phone] PCP - General Nurse Practitioner Family 09/17/2001/10 [place] [address] [place] [address] PCP - General Electrophysiology 02/23/22 03/09/22 Desiree Patrick MD [address] [place] [address] 08/09/17 Farrah Nicole APRN,[facility] [address] [place] [place] [facility] [address] 08/09/17 Bry Echevarria MD [facility] [place] [address] 08/09/17 Casey Berry II, DO 08/09/17 Shruti Vergara RN RN Registered Nurse 08/27/20 documented as of this encounter Additional Source Comments PLEASE NOTE: Replies to this message will not be received.[facility] and [facility]
--- OUTSIDE RECORDS SUMMARY | 2024-02-13 00:19 | XMS_ITS | Encounter Summary ---
Author Organization [employer] Address [address] [place] [address] Care Team Providers Care Cd Reactor Operator Head Name Role Phone Jamal CARLISLE DO, Robert William Primary Care Provide r Unavailable Desiree Patrick MD Unavailable Farrah Nicole APRN,WATER RESOURCES PROJECT MANAGER Unavailable [phone] Bry Echevarria MD Unavailable Jamal CARLISLE DO, Robert William Unavailable Unav Stephani Diaz MD Primary Care Provider Shruti Vergara RN Unavailable Unavailable Bianka Loera CNP Primary Care Provider Desiree Patrick MD Primary Care P rovider Encounter Details Date Type Department Care Team (Late st Contact Info) Description 10/08/2016 Historical Conversion [facility] Family Medicine [address] [place] [address] Social History Tobacco Use Types Packs/Day Years [...] as of this encounter Nursing Notes * [facility], GENERICPROVIDER - 10/08/2016 12:00 AM CDT Patient calls triage with complaints of elevated heart rate in the 140's since Wednesday morning. He states that he has taken his prescribed Beta-Blockers multiple times and they have not been helping with the elevated heart rate as they should be. Patient denies any shortness of breath, dizziness, lig htheadedness, chest pain or confusion. Patient instructed by technical writer and editor to go to the Emergency Room at [facility] to be evaluated. Patient verbalized understanding of instructions. STACY MCCAULEY Electronically signed by:Tammy Coronado RN Oct 08 2016 8:22AM SQL SERVER DBA documented in this encounter Plan of Treatment Not on file documented as of this encounter Visit Diagnoses Not on filedocumented in this encounter Care Teams Cd Reactor Operator Head Relationship Specialty Start Date End Date Casey Berry II, DO PCP - General 11/22/06 08/17/19 Stephani Aleman MD PCP - General Family Medicine 08/18/19 09/16/20 Bianka Loera CNP [address] [facility] [address] [place] [address] PCP - General Nurse Practitioner Family 09/17/2001/10 Desiree Patrick MD [address] [facility] [place] [address] PCP - General Electrophysiology 02/23/22 03/09/22 Desiree Patrick MD [address] [facility] [place] [address] 08/09/17 Farrah Nicole, CLINICAL RESEARCHER,WATER RESOURCES PROJECT MANAGER [address] [facility] [place] [address] 08/09/17 Bry Echevarria MD [address] [place] [place] [address] 08/09/17 Casey Berry II, DO 08/09/17 Shruti Vergara RN RN Registered Nurse 08/27/20 documented as of this encounter Additional Source Comments PLEASE NOTE: Replies to this message will not be received.[facility] and [facility]
--- OUTSIDE RECORDS SUMMARY | 2024-02-13 00:19 | XMS_ITS | Encounter Summary ---
Author Organization [employer] Address [address] [place] [address] Care Team Providers Care General Studies Program Chair Name Role Phone Jamal CARLISLE DO, Robert William Primary Care Provide r Unavailable Desiree Patrick MD Unavailable Farrah Nicole APRN,STONE SPLITTER Unavailable Bry Echevarria MD Unavailable Jamal CARLISLE DO, Robert William Unavailable Unav Stephani Diaz MD Primary Care Provider Shruti Vergara RN Unavailable Unavailable Bianka Loera CNP Primary Care Provider [phone] Desiree Patrick MD Primary Care P rovider Encounter Details Date Type Department Care Team (Late st Contact Info) Description 08/27/[address] [facility] Family Medicine [address] [place] [phone] Moon Maloney MD Social History Tobacco Use [...] Comments Blood Pressure 175/101 08/27/2016 12:00 AM DONOR SPECIALIST Pulse - - Temperature - - Respiratory Rate - - Oxygen Saturation - - Inhaled Oxygen Concentration - - Weight 95.7 kg (210 lb 15.7 oz) 017 12:00 AM DONOR SPECIALIST Height - - Body Mass Index 27.84 [...] filedocumented in this encounter Care Teams General Studies Program Chair Relationship Specialty Start Date End Date Casey Berry II, DO PCP - General 11/22/06 08/17/19 Stephani Aleman MD PCP - General Family Medicine 08/18/19 09/16/20 Bianka Loera CNP [address] [place] [address] PCP - General Nurse Practitioner Family 09/17/2001/10 [place] [address] [place] [address] PCP - General Electrophysiology 02/23/22 03/09/22 Desiree Patrick MD [address] [facility] [place] [address] 08/09/17 Farrah Nicole APRN,[facility] [address] [place] [address] 08/09/17 Bry Echevarria MD [address] [place] [address] [place] [address] 08/09/17 Casey Berry II, DO 08/09/17 Shruti Vergara RN RN Registered Nurse 08/27/20 documented as of this encounter Additional Source Comments PLEASE NOTE: Replies to this message will not be received.[facility] and [facility]
--- OUTSIDE RECORDS SUMMARY | 2024-02-13 00:19 | XMS_ITS | Encounter Summary ---
Author Organization [facility] Address [address] [place] [address] Care Team Providers Care Local Company Refrigerated Truck Driver Name Role Phone Jamal CARLISLE DO, Robert William Primary Care Provide r Unavailable Desiree Patrick MD Unavailable Farrah Nicole APRN,2ND GRADE TEACHER Unavailable Bry Echevarria MD Unavailable [phone] Jamal CARLISLE DO, Robert William Unavailable Unav Stephani Diaz MD Primary Care Provider Shruti Vergara RN Unavailable Unavailable Bianka Loera CNP Primary Care Provider [phone] Desiree Patrick MD Primary Care P rovider Encounter Details Date Type Department Care Team (Late st Contact Info) Description 11/26/2015 HIM Manager Cancer [facility] [address] [address] Rajeev Barlow MD Social History [...] Order(s): MYOCARDIAL PERFUSION PHARMACOLOGIC STRESS PERFORMED BY: [facility] [employer] SERVICES [place], [place] SITE: [place], [place] INTERPRETED BY: [facility] [place], [place] PHARMACOLOGIC MYOCARDIAL PERFUSION SCAN Study supervised [...] TYPE: Rest/stress, single isotope gated SPECT imaging. [id number]: 12.5 mCi (IV) for the rest injection. Tq28w-[id number]: 33.1 mCi (IV) for the stress injection. [...] function. Note: This study was performed by [id number]. Only the interpretation was performed at the [facility] [place]. Electronically signed Rajeev Barlow MD, [facility] Street Department Dispatcher , 03:10 P A dsc/Doc#: [id number] cc: documented in this encounter Plan of Treatment Not on file documented as of this encounter Procedures Procedure Name Priority Date/Time Associated Diagnosis Comments MYOCARDIAL PERFUSION PHARMACOLOGIC STRESS 11/26/2015 documented in this encounter Results * MYOCARDIAL PERFUSION PHARMACOLOGIC STRESS (11/26/2015) Anatomical Region Laterality Modality Other 11/26/2015 Narrative Procedure Note Rajeev Barlow MD - 11/26/2015 12:00 AM CDT PERFORMED BY: [employer] [place], [place] SITE: [place], [place] INTERPRETED BY: [place], [place] PHARMACOLOGIC MYOCARDIAL PERFUSION SCAN Study supervised [...] TYPE: Rest/stress, single isotope gated SPECT imaging. [id number]: 12.5 mCi (IV) for the rest injection. Wp45t-[id number]: 33.1 mCi (IV) for the stress injection. [...] function. Note: This study was performed by [id number]. Only theinterpretation was performed at the [facility] [place]. Electronically signed Rajeev Barlow MD, [facility] Street Department Dispatcher , 03:10 P A dsc/Doc#: [id number] cc: Rajeev Barlow MD CAR NUC MED/STRESS documented in this encounter Visit Diagnoses Not on filedocumented in this encounter Care Teams Local Company Refrigerated Truck Driver Relationship Specialty Start Date End Date Casey Berry II, DO PCP - General 11/22/06 08/17/19 Stephani Aleman MD PCP - General Family Medicine 08/18/19 09/16/20 Bianka Loera CNP [address] [place] [address] PCP - General Nurse Practitioner Family 09/17/2001/10 Desiree Patrick MD [address] [place] [address] PCP - General Electrophysiology 02/23/22 03/09/22 Desiree Patrick MD [address] [facility] [place] [address] 08/09/17 Farrah Nicole APRN,2ND GRADE TEACHER [address] [place] [address] 08/09/17 Bry Echevarria MD [address] [place] [address] 08/09/17 Casey Berry II, DO 08/09/17 Shruti Vergara RN RN Registered Nurse 08/27/20 documented as of this encounter Additional Source Comments PLEASE NOTE: Replies to this message will not be received.[facility] and [facility]
--- OUTSIDE RECORDS SUMMARY | 2024-02-13 00:19 | XMS_ITS | Encounter Summary ---
Author Organization [facility] Address [address] [place] [address] Care Team Providers Care Science Interpreter Name Role Phone Jamal CARLISLE DO, Robert William Primary Care Provide r Unavailable Desiree Patrick MD Unavailable Farrah Nicole APRN,RETAIL ANALYTICS MANAGER Unavailable Bry Echevarria MD Unavailable Jamal CARLISLE DO, Robert William Unavailable Unav Stephani Diaz MD Primary Care Provider Shruti Vergara RN Unavailable Unavailable Bianka Loera CNP Primary Care Provider Desiree Patrick MD Primary Care P rovider Encounter Details Date Type Department Care Team (Late st Contact Info) Description 11/19/2015 HIM Civil Engineering Director [facility] [place] [address] [place] [address] Dionisio Meneses MD [address] [place] [address] Social History Tobacco Use Types [...] ADULT WITH OR WITHOUT CONTRAST PERFORMED BY: [place], [place] SITE: [place], [place] INTERPRETED BY: [facility] [place], [place] TRANSTHORACIC ECHOCARDIOGRAM REPORT REFERRING DIAGNOSIS: Atrial [...] comparison. Note: This study was performed by [employer]. Only the interpretation wasperformed at the [facility]. Electronically signed Dionisio Meneses MD, [facility] Medication Manager , 04:04 P A vd/Doc#: [id number] cc: Adult Normal Value Adult Patient Values [...] kg Blood pressure: 126/75 Previous study: -- Conference Assistant: Lisa documented in this encounter Plan of [...] - 11/19/2015 12:00 AM CDT PERFORMED BY: [place] SITE: [place] INTERPRETED BY: [facility] [place], [place] TRANSTHORACIC ECHOCARDIOGRAM REPORT REFERRING DIAGNOSIS: Atrial [...] comparison. Note: This study was performed by [facility]Only the interpretation was performed at the [facility]. Electronically signed Dionisio Meneses MD, [facility] Medication Manager , 04:04 P A vd/Doc#: [id number] cc: Adult Normal Value Adult Patient Values [...] kg Blood pressure: 126/75 Previous study: -- Conference Assistant: Lisa Dionisio Meneses MD CAR ULTRASOUND documented in this encounter Visit Diagnoses Not on filedocumented in this encounter Care Teams Science Interpreter Relationship Specialty Start Date End Date Casey Berry II, DO PCP - General 11/22/06 08/17/19 Stephani Aleman MD PCP - General Family Medicine 08/18/19 09/16/20 Bianka Loera SNACK STEWARD [address] [place] [address] [address] [place] [phone] PCP - General Nurse Practitioner Family 09/17/20 712/31 Desiree Patrick MD [address] [place] [address] PCP - General Electrophysiology 02/23/22 03/09/22 Desiree Patrick MD [address] [place] [address] 08/09/17 Farrah Nicole APRN,RETAIL ANALYTICS MANAGER [address] [place] [phone] 08/09/17 Bry Echevarria MD [address] [place] [place] [phone] 08/09/17 Casey Berry II, DO 08/09/17 Shruti Vergara RN RN Registered Nurse 08/27/20 documented as of this encounter Additional Source Comments PLEASE NOTE: Replies to this message will not be received.[facility]
--- OUTSIDE RECORDS SUMMARY | 2024-02-13 00:20 | XMS_ITS | Encounter Summary ---
Author Organization [employer] Address [address] [place] [address] Care Team Providers Care Wood Cut Engraver Name Role Phone Jamal CARLISLE DO, Robert William Primary Care Provide r Unavailable Desiree Patrick MD Unavailable Farrah Nicole APRN,LADLE MECHANIC Unavailable Bry Echevarria MD Unavailable Jamal CARLISLE DO, Robert William Unavailable Unav Stephani Diaz MD Primary Care Provider Shruti Vergara RN Unavailable Unavailable Bianka Loera CNP Primary Care Provider [phone] Desiree Patrick MD Primary Care P rovider Encounter Details Date Type Department Care Team (Late st Contact Info) Description 01/03/2014 Historical Conversion [facility] Family Medicine [address] [place] [address] Errol Berry II, DO Social History Tobacco [...] AM CDT CRISTIAN BLEDSOE : 1945 HX: [id number] DOS: 01/03/2014 CHIEF COMPLAINT: Back pain. HISTORY [...] by:ERROL BERRY D.O. Jan 17 2014 7:34AM DIETARY SUPERVISOR documented in this encounter Plan of Treatment Not on file documented as of this encounter Visit Diagnoses Not on filedocumented in this encounter Care Teams Wood Cut Engraver Relationship Specialty Start Date End Date Errol Berry II, DO PCP - General 11/22/06 08/17/19 Stephani Aleman MD PCP - General Family Medicine 08/18/19 09/16/20 Bianka Loera CHAIN MACHINE OPERATOR [address] [place] [address] PCP - General Nurse Practitioner Family 09/17/20 7/12/31 Desiree Patrick MD [address] [place] [address] PCP - General Electrophysiology 02/23/22 03/09/22 Desiree Patrick MD [address] [place] [address] 08/09/17 Farrah Nicole APRN,LADLE MECHANIC [address] [place] [address] 08/09/17 Bry Echevarria MD [facility] [place] [address] 08/09/17 Errol Berry II, DO 08/09/17 Shruti Vergara RN RN Registered Nurse 08/27/20 documented as of this encounter Additional Source Comments PLEASE NOTE: Replies to this message will not be received.[facility] and [facility]
--- OUTSIDE RECORDS SUMMARY | 2024-02-13 00:20 | XMS_ITS | Continuity of Care Document ---
Author Organization [facility] Address [address] [place] [address] Phone Care Team Providers Care Laborer Egg Producing Farm Name Role Phone [facility], [facility] Unavailable Unavailable Allergies, Adverse Reactions, Alerts Substance Reaction Status Criticality Sulfa (Sulfonamide Antibiotics) rash Active No Information PENICILLIN rash Active No Information Medications Medication Instructions Dosage Effective Dates (start - stop) Status Comments Vzkk-Ngiv-Rlpof 1%/0.5%/.01% OPHTHALMIC DROPS Apply one drop to [...] Diagnoses Date Provider Providers Copied on Encounter [facility], [address] [place], [id number], [place] tel:[phone] [facility] No Information 2 [facility]. [address] [place], [id number]. tel:[phone] Referring Provider: Timoteo Zhao, [address] [place], [address] . tel:[phone] [facility], [address] [place], [place], [id number], [place] tel:[phone] [facility] No Information 2 [facility]. [address] [place], [id number]. tel:[phone] Referring Provider: Timoteo Zhao, [address] [place], [address] . tel:[phone] [facility], [address] [place], [id number], [place] tel:[phone] [facility] No Information 9 [facility]. [address] [place], [id number]. tel:[phone] Referring Provider: Timoteo Zhao, [address] [place], [address] . tel:[phone] [facility], [address] [place], [id number], [place] tel:[phone] [facility] No Information 9 [facility]. [address] [facility], [place], [place], [id number]. tel:[phone] Referring Provider: Timoteo Zhao, [address] [place] [address], [address] . tel:[phone] [facility], [address] [place], [id number], tel:[phone] [facility] No Information 9 Dave Mahmood. [address] [place] [address], [id number], [place]. tel:[phone] Family History Family Member Type Diagnosis Age At Onset No Information Payers Payer name Insurance type Covered republican ID Authoriza tion(s) [facility] [id number] Social History Type Description Quantity Date Captured [...]
--- OUTSIDE RECORDS SUMMARY | 2024-02-13 00:20 | XMS_ITS | Encounter Summary ---
Author Organization [employer] Address [address] [place] [address] Care Team Providers Care Concrete Stone Fabricating Supervisor Name Role Phone Jamal CARLISLE DO, Robert William Primary Care Provide r Unavailable Desiree Patrick MD Unavailable Farrah Nicole APRN,SENIOR ACCOUNTING MANAGER Unavailable Bry Echevarria MD Unavailable [phone] Jamal CARLISLE DO, Robert William Unavailable Unav Stephani Diaz MD Primary Care Provider [phone] Shruti Vergara RN Unavailable Unavailable Bianka Loera CNP Primary Care Provider [phone] Desiree Patrick MD Primary Care P rovider Encounter Details Date Type Department Care Team (Late st Contact Info) Description 08/22/2014 Historical Conversion [facility] Family Medicine [address] [place] [address] Casey Berry II, DO Social History Tobacco Use Types Packs/Day Years Used Date Smoking Tobacco: Never Assessed Sex and Gender Information Value Date Recorded Sex Assigned at Not on file Gender Identity Not on file Sexual Orientation Not on file documented as of this encounter Last Filed Vital Signs Vital Sign Reading Time Taken Comments Blood Pressure 145/88 08/22/2014 12:00 AM RETAIL BUSINESS DEVELOPMENT MANAGER Pulse - - Temperature - - Respiratory Rate - - Oxygen Saturation - - Inhaled Oxygen Concentration - - Weight 90.7 kg (200 lb) 08/22/2014 12:00 AM RETAIL BUSINESS DEVELOPMENT MANAGER Height 185.4 cm (6' 1) 08/22/2014 12:00 AM RETAIL BUSINESS DEVELOPMENT MANAGER Body Mass Index 26.39 08/22/2014 12:00 AM RETAIL BUSINESS DEVELOPMENT MANAGER documented in this encounter Plan of Treatment Not on file documented as of this encounter Visit Diagnoses Not on filedocumented in this encounter Care Teams Concrete Stone Fabricating Supervisor Relationship Specialty Start Date End Date Casey Berry II, DO PCP - General 11/22/06 08/17/19 Stephani Aleman MD PCP - General Family Medicine 08/18/19 09/16/20 Bianka Loera CNP [address] [place] [address] [address] [place] [address] PCP - General Nurse Practitioner Family 09/17/2001/10 Desiree Patrick MD [address] [place] [address] PCP - General Electrophysiology 02/23/22 03/09/22 Desiree Patrick MD [address] [place] [address] 08/09/17 Farrah Nicole, BALLET DANCER,SENIOR ACCOUNTING MANAGER [address] [place] [address] 08/09/17 Bry Echevarria MD [address] [place] [address] [id number] 08/09/17 Casey Berry II, DO 08/09/17 Shruti Vergara RN RN Registered Nurse 08/27/20 documented as of this encounter Additional Source Comments PLEASE NOTE: Replies to this message will not be received.[facility] and [facility]
--- OUTSIDE RECORDS SUMMARY | 2024-02-13 00:20 | XMS_ITS | Continuity of Care Document ---
Author Organization [facility] Address [address] [place] [address] Phone Care Team Providers Care Prepress Supervisor Name Role Phone Timoteo Acosta D.O. Unavailable [...] Diagnoses Date Provider Providers Copied on Encounter [facility], [address] [place] [address], [id number], tel:[phone] [facility] No Information Dave Mahmood. [address] [place] [address], [id number], [place]. tel:[phone] [facility], [address] [place] [address], [id number], [place] tel:[phone] [facility] No Information Dave Mahmood. [address] [place] [address], [id number], [place]. tel:[phone] Referring Provider: Cherelle Borja [facility] [address], [place], [address]. tel:[phone] [facility], [address] [place] [address], [id number], [place] tel:[phone] [facility] No Information Dave Mahmood. [address] [place] [address], [id number], [place]. tel:[phone] Referring Provider: Cherelle Borja [facility] [address], [place], [address]. tel:[phone] OFFICE/OUTPATI ENT VISIT, EST [facility], [address] [place] [address], [id number], [place] tel:[phone] [facility] decreased vision (chief complaint) PCO-OSDrusen (degenerative ) of macula, left eye Dave Mahmood. [address] [place] [address], [id number], [place]. tel:[phone] Referring Provider: Cherelle Borja [facility] [address], [place], [address]. tel:[phone] [facility], [address] [place] [address], [id number], tel:[phone] [facility] No Information Dave Mahmood. [address] [place] [address], [id number], . tel:[phone] Referring Provider: Timoteo Zhao, [address] [place] [address], [address]. tel:[phone] [facility], [address] [place] [address], [id number], tel:[phone] [facility] No Information Dave Mahmood. [address] [place] [address], [id number], [place]. tel:[phone] Referring Provider: Timoteo Zhao, [address] [place] [address], [address] [place] [address]. tel:[phone] OFFICE/OUTPATI ENT VISIT, [facility], [address] [place] [address], [address] [place] [address], tel:[phone] [facility] blurry vision (chief complaint) Cat-combined- ODCat-Pseudop hakia Dave Mahmood. [address] [place] [address], [id number], [place]. tel:[phone] Referring Provider: Timoteo Zhao, [address] [place] [address], [address] [place] [address]. tel:[phone] [facility], [address] [place] [address], [id number], [place] tel:[phone] [facility] No Information Dave Mahmood. [address] [place] [address], [id number], [place]. tel:[phone] Referring Provider: Timoteo Zhao, [address] [place] [address], [address]. tel:[phone] [facility], [address] [place] [address], [id number], tel:[phone] [facility] No Information Dave Mahmood. [address] [place] [address], [id number], [place]. tel:[phone] Referring Provider: Timoteo Zhao, [address] [place] [address], [address]. tel:[phone] [facility], [address] [place] [address], [id number], tel:[phone] [facility] No Information Dave Mahmood. [address] [place] [address], [id number], [place]. tel:[phone] Referring Provider: Timoteo Zhao, [address] [place] [address], [address]. tel:[phone] [facility], [address] [place] [address], [id number], tel:[phone] [facility] No Information Dave Mahmood. [address] [place] [address], [id number], [place]. tel:[phone] Referring [facility]: [facility] [address], [place], [address]. tel:[phone] OFFICE/OUTPATI ENT VISIT, [facility], [address] [place] [address], [id number], [place] tel:[phone] [facility] 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 [address] [place] [address], [id number], [place]. tel:[phone] Referring Provider: Cherelle Borja [facility] [address], [place], [address]. tel:[phone] [facility], [address] [place] [address], [id number], [place] tel:[phone] [facility] No Information Dave Mahmood. [address] [place], [place], [id number], . tel:[phone] Referring Provider: Timoteo Zhao, [address] [place], [address]. tel:[phone] Family History Family Member Type Diagnosis Age At Onset No Information Payers Payer name Insurance type Covered constitution party ID Viet dillon(s) [facility] [place] [id number] Social History Type Description Quantity Date Captured [...]
--- OUTSIDE RECORDS SUMMARY | 2024-02-13 00:20 | XMS_ITS | Encounter Summary ---
Author Organization [employer] Address [address] [place] [address] Care Team Providers Care Imaging Nurse Name Role Phone Jamal CARLISLE DO, Robert William Primary Care Provide r Unavailable Desiree Patrick MD Unavailable Farrah Nicole APRN,EVENING ANCHOR Unavailable Bry Echevarria MD Unavailable Jamal CARLISLE DO, Robert William Unavailable Unav Setphani Diaz MD Primary Care Provider [phone] Shruti Vergara RN Unavailable Unavailable Bianka Loera CNP Primary Care Provider Desiree Patrick MD Primary Care P rovider Encounter Details Date Type Department Care Team (Late st Contact Info) Description 08/22/2014 Historical Conversion [facility] Family Medicine [address] [place] [address] Casey Berry II, DO Social History Tobacco [...] AND PHYSICAL CRISTIAN BLEDSOE : 1945 HX: [id number] DOS: 08/22/2014 CHIEF COMPLAINT: Routine physical. 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 ALLERGIES: PENICILLIN AND SULFA. HEALTH CARE MAINTENANCE: [...] by:Casey Berry D.O. Sep 06 2014 7:40AM SENIOR EDUCATION SPECIALIST documented in this encounter Plan of Treatment Not on file documented as of this encounter Visit Diagnoses Not on filedocumented in this encounter Care Teams Imaging Nurse Relationship Specialty Start Date End Date Casey Berry II, DO PCP - General 11/22/06 08/17/19 Stephani Aleman MD PCP - General Family Medicine 08/18/19 09/16/20 Bianka Loera CNP [address] [facility] 2 [place] [address] PCP - General Nurse Practitioner Family 09/17/2001/10 Desiree Patrick MD [address] [place] [place] [place] [address] PCP - General Electrophysiology 02/23/22 03/09/22 Desiree Patrick MD [address] [place] [place] [address] 08/09/17 Farrah Nicole, BUS OR TRUCK GARAGE MECHANIC,EVENING ANCHOR [address] [place] [place] [address] 08/09/[address] [facility] [place] [address] 08/09/17 Casey Berry II, DO 08/09/17 Shruti Vergara RN RN Registered Nurse 08/27/20 documented as of this encounter Additional Source Comments PLEASE NOTE: Replies to this message will not be received.[facility] and [facility]
--- OUTSIDE RECORDS SUMMARY | 2024-02-13 00:20 | XMS_ITS | Encounter Summary ---
Author Organization [employer] Address [address] [place] [address] Care Team Providers Care Asp Net Developer Name Role Phone Jamal CARLISLE DO, Robert William Primary Care Provide r Unavailable Desiree Patrick MD Unavailable Farrah Nicole APRN,UNIVERSAL BRANCH CONSULTANT Unavailable Bry Echevarria MD Unavailable [phone] Jamal CARLISLE DO, Robert William Unavailable Unav Stephani Diaz MD Primary Care Provider [phone] Shruti Vergara RN Unavailable Unavailable Bianka Loera CNP Primary Care Provider Desiree Patrick MD Primary Care P rovider Encounter Details Date Type Department Care Team (Late st Contact Info) Description 08/28/[address] [facility] Family Medicine [address] [place] [address] Casey Berry II, DO Social History Tobacco Use Types Packs/Day Years Used Date Smoking Tobacco: Never Assessed Sex and Gender Information Value Date Recorded Sex Assigned at Not on file Gender Identity Not on file Sexual Orientation Not on file documented as of this encounter Last Filed Vital Signs Vital Sign Reading Time Taken Comments Blood Pressure 134/90 08/28/2015 12:00 AM CUSTODIAN MANAGER Pulse - - Temperature - - Respiratory Rate - - Oxygen Saturation - - Inhaled Oxygen Concentration - - Weight 90.2 kg (198 lb 13.7 oz) 016 12:00 AM CUSTODIAN MANAGER Height 186 cm (6' 1.23) 08/28/2015 12: 00 AM CUSTODIAN MANAGER Body Mass Index 26.07 08/28/2015 12:00 AM CUSTODIAN MANAGER documented in this encounter Progress Notes * [...] healthy by no longer smoking.; Status:Complete; Done: 53Dpe4381 Reason For Visit Go over CT results. [...] 1 TABLET BY MOUTH ONCE DAILY; Therapy: 11Glr3344 to (Evaluate:54Ftk2300) Requested for: 22Wlt1949; Last Rx:15Uuz2453 Ordered 2. Metoclopramide HCl - 5 MG Oral Tablet; TAKE 1 TABLET BY MOUTH THREE TIMES DAILY WITH MEALS; Therapy: 10Sep2014 to (Evaluate:61Kpg8146) Requested for: 44Pie8475; Last Rx:75Kmc8479 Ordered 3. Metoprolol Tartrate 25 MG Oral Tablet; 1/2 to 1 prn a fib Requested for: 50Wce5996; Last Rx:13Izb8041 Ordered 4. Tylenol Extra Strength 500 MG Oral Tablet; Therapy: (Recorded:40Kuk9986) to Recorded 5. Warfarin Sodium 5 MG Oral Tablet; Take as directed by ACC; Therapy: 87Wqg6210 to (Evaluate:15May2017) Requested for: 20May2016 Recorded Allergies 1. Penicillins 2. Sulfa Drugs Vitals Recorded: 33Tib6328 10:00AM Systolic 115, RUE, Sitting Diastolic 76, RUE, Sitting Heart Rate 65 Respiration 16 Temperature 97.6 F, Forehead Weight 91.5 kg BMI Calculated 26.45 BSA Calculated 2.16 2+ Falls or 1 Fall with injury in last year? No O2 Saturation 96 Signatures Casey Berry II, D.OWilliam/pj-29 Electronically signed by : Casey Berry DO; Jul 09 2016 1:56PM CUSTODIAN MANAGER * Casey Berry II, DO - 03/10/2016 [...] use sparingly qid; Therapy: 18Nov2015 to (Last Rx:92Qzp0992) Requested for: 66Mvc3080 Ordered 2. Lisinopril 10 MG Oral Tablet; TAKE 1 TABLET BY MOUTH ONCE DAILY; Therapy: 33Kix9723 to (Evaluate:01Fqu6505) Requested for: 36Ovp1093; Last Rx:14Lty6558 Ordered 3. Metoclopramide HCl - 5 MG Oral Tablet; TAKE 1 TABLET BY MOUTH THREE TIMES DAILY WITH MEALS; Therapy: 10Sep2014 to (Evaluate:11Ggd5653) Requested for: 26Icz6032; Last Rx:10Sbb3314 Ordered 4. Tylenol Extra Strength 500 MG Oral Tablet; Therapy: (Recorded:64Mkb7340) to Recorded 5. Warfarin Sodium 5 MG Oral Tablet; Take as directed by ACC; Therapy: 24Mdj8786 to (Evaluate:64Wzv1380) Requested for: 19Feb2016; Last Rx:19Feb2016 Ordered Allergies [...] Vital Signs [Data Includes: Current Encounter] Recorded: 49Qth7083 10:06AM Blood Pressure 124 / 71 Heart [...] Casey Berry DO; Apr 02 2016 8:50AM CUSTODIAN MANAGER * Casey Berry II, DO - 01/28/2016 [...] use sparingly qid; Therapy: 18Nov2015 to (Last Rx:84Ler8530) Requested for: 55Xuq5602 Ordered 2. Lisinopril 10 MG Oral Tablet; TAKE 1 TABLET BY MOUTH ONCE DAILY; Therapy: 08Hbe5200 to (Evaluate:17Yql5153) Requested for: 08Nxf9162; Last Rx:25Nuq1286 Ordered 3. Metoclopramide HCl - 5 MG Oral Tablet; TAKE 1 TABLET BY MOUTH THREE TIMES DAILY WITH MEALS; Therapy: 10Sep2014 to (Evaluate:65Eie7510) Requested for: 39Bbb3528; Last Rx:40Cok1473 Ordered 4. Tylenol Extra Strength 500 MG Oral Tablet; Therapy: (Recorded:18Nov2015) to Recorded 5. Xarelto 15 MG Oral Tablet; TAKE 1 TABLET DAILY Requested for: 08Jan2016; Last Rx:08Jan2016 Ordered Allergies 1. Penicillins 2. Sulfa Drugs Social History 1. Former smoker: 0 - 10 pack years (V15.82) (Z87.891) Vitals Vital Signs [Data Includes: Current Encounter] Recorded: 08Nme7909 10:31AM Blood Pressure 139 / 83 Heart [...] Casey Berry DO; Feb 11 2016 7:47AM CUSTODIAN MANAGER * Casey Berry II, DO - 12/11/2015 12:00 AM CDT Chief Complaint/Reason for Visit f/up ct History of Present Illness This is a 70-year-old male who recently underwent a stress test. The stress test showed no major abnormality, however, it was suggested of an aneurysm. 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 [place] that the CT scan would be a [...] 1 TABLET BY MOUTH ONCE DAILY; Therapy: 34Njf3546 to (Evaluate:38Ajl4140) Requested for: 56Bgq4204; Last Rx:51Vwp2314 Ordered 3. Metoclopramide HCl - 5 MG Oral Tablet; TAKE 1 TABLET BY MOUTH THREE TIMES DAILY WITH MEALS; Therapy: 10Sep2014 to (Evaluate:72Yzj4585) Requested for: 03Dec2015; Last Rx:98Xak4075 Ordered 4. Tylenol Extra Strength 500 MG [...] Casey Berry DO; Dec 30 2015 8:19AM CUSTODIAN MANAGER * Casey Berry II, DO - 11/18/2015 12:00 AM CDT Chief Complaint/Reason for Visit ER follow up History of Present Illness This is a 69-year-old male who has a long history of paroxysmal tachycardia. He recently had an episode of paroxysmal tachycardia. He went in to the ER in [place] and found that he had a flutter [...] INHALE ONE SPRAY TWICE DAILY PRN; Therapy: 19Spc8816 to Requested for: 03Jan2014 Recorded 2. Lisinopril 10 MG Oral Tablet; TAKE 1 TABLET BY MOUTH ONCE DAILY; Therapy: 47Jfx5308 to (Evaluate:67Cvs9313) Requested for: 68Djy5685; Last Rx:33Frs2283 Ordered 3. Metoclopramide HCl - 5 MG Oral Tablet; TAKE 1 TABLET BY MOUTH THRE E TIMES DAILY WITH MEALS; Therapy: 10Sep2014 to (Evaluate:20Nor6386) Requested for: 78Ljs8465; Last Rx:59Acb2819 Ordered 4. Metoprolol Tartrate 25 MG Oral [...] Casey Berry DO; Nov 26 2015 8:06AM CUSTODIAN MANAGER documented in this encounter H&P Notes * [...] INHALE ONE SPRAY TWICE DAILY PRN; Therapy: 73Sbp9635 to Requested for: 03Jan2014 Recorded 3. Lisinopril 10 MG Oral Tablet; TAKE 1 TABLET BY MOUTH ONCE DAILY; Therapy: 34Zgh7664 to (Evaluate:51Mex5292) Requested for: 59Qcq0440; Last Rx:39Rie6748 Ordered 4. Metoclopramide HCl - 5 MG Oral Tablet; TAKE 1 TABLET BY MOUTH THRE E TIMES DAILY WITH MEALS; Therapy: 10Sep2014 to (Evaluate:07Tbw7873) Requested for: 36Knd9668; Last Rx:70Neo2766 Ordered 5. Vitamin D3 1000 UNIT Oral [...] healthy by no longer smoking.; Status:Complete; Done: 34Pgv7986 1.Prevnar shot. 2.CBC, vitamin D, PSA, comp, and lipid. 3.Did discuss with patient about his foot. Signatures Casey Berry II, D.OWilliam/jaj-08 Electronically signed by : Casey Berry DO; Sep 19 2015 8:13AM CUSTODIAN MANAGER documented in this encounter Procedure Notes * Casey Berry II, DO - 11/26/2015 12:00 AM CDTAssociated Order(s): NUCLEAR MEDICINE NUCLEAR MEDICINE CRISTIAN BLEDSOE : 1945 HX: [id number] DOS: 11/26/2015 Lexiscan portion of Lexiscan Cardiolite. [...] by:Casey Berry DO Dec 03 2015 7:45AM CUSTODIAN MANAGER documented in this encounter Miscellaneous Notes * [...] you have any questions. Casey Berry DO [facility] Electronically signed by:DEYANIRA FRANCOIS Sep 09 2015 11:25AM CUSTODIAN MANAGER documented in this encounter Plan of Treatment Not on file documented as of this encounter Procedures Procedure Name Priority Date/Time Associated Diagnosis Comments NUCLEAR MEDICINE 11/26/2015 documented in this encounter Results * NUCLEAR MEDICINE (11/26/2015) Anatomical Region Laterality Modality Other Narrative Procedure Note Casey Berry II, DO - 11/26/2015 12:00 AM CDT NUCLEAR MEDICINE CRISTIAN BLEDSOE : 1945 HX: [id number] DOS: 11/26/2015 Lexiscan portion of Lexiscan Cardiolite. BASELINE EKG: Shows no abnormality of note. PROTOCOL: Patient was given Lexiscan and Cardiolite. He had no majorcomplaints. EKG CHANGES NOTED DURING TEST: EKG showed no changes. IMPRESSION: 1. Normal Lexiscan portion of Lexiscan Cardiolite. RECOMMENDATIONS: We will await radiologic portion of test. Casey Berry II, D.O./jaj-23 Electronically signed by:Casey Berry DO Dec 03 2015 7:45AM CUSTODIAN MANAGER Casey Berry II, DO RAD NUCLEAR M EDICINE documented in this encounter Visit Diagnoses Not on filedocumented in this encounter Care Teams Asp Net Developer Relationship Specialty Start Date End Date Casey Berry II, DO PCP - General 11/22/06 08/17/19 Stephani Aleman MD PCP - General Family Medicine 08/18/19 09/16/20 Bianka Loera ELECTRICAL INSTALLATION SUPERVISOR [address] [facility] [address] [place] [address] PCP - General Nurse Practitioner Family 09/17/20 712/31 Desiree Patrick MD [address] [place] [address] PCP - General Electrophysiology 02/23/22 03/09/22 [place] [address] [place] [address] 08/09/17 Farrah Nicole APRN,ALEX [address] [place] [address] 08/09/17 Bry Echevarria MD [address] [place] [address] 08/09/17 Casey Berry II, DO 08/09/17 Shruti Vergara RN RN Registered Nurse 08/27/20 documented as of this encounter Additional Source Comments PLEASE NOTE: Replies to this message will not be received.[facility] and [facility]
--- OUTSIDE RECORDS SUMMARY | 2024-02-13 00:20 | XMS_ITS | Encounter Summary ---
Author Organization [facility] Address [address] [place] [address] Care Team Providers Care Major Gifts Officer Name Role Phone Jamal CARLISLE DO, Robert William Primary Care Provide r Unavailable Desiree Patrick MD Unavailable Farrah Nicole APRN,CORE MOUNTER Unavailable Bry Echevarria MD Unavailable Jamal CARLISLE DO, Robert William Unavailable Unav Stephani Diaz MD Primary Care Provider Shruti Vergara RN Unavailable Unavailable Bianka Loera CNP Primary Care Provider Desiree Patrick MD Primary Care P rovider Encounter Details Date Type Department Care Team (Late st Contact Info) Description 09/10/2014 Historical Conversion [facility] Family Medicine [address] [place] [address] Casey Berry II, DO Social History Tobacco Use Types Packs/Day Years Used Date Smoking Tobacco: Never Assessed Sex and Gender Information Value Date Recorded Sex Assigned at Not on file Gender Identity Not on file Sexual Orientation Not on file documented as of this encounter Last Filed Vital Signs Vital Sign Reading Time Taken Comments Blood Pressure 130/80 09/10/2014 12:00 AM PLANT HR MANAGER Pulse - - Temperature - - Respiratory Rate - - Oxygen Saturation - - Inhaled Oxygen Concentration - - Weight 93.9 kg (207 lb 0.2 oz) 09/10/2014 12:00 AM PLANT HR MANAGER Height - - Body Mass Index 27.31 08/22/2014 12:00 AM PLANT HR MANAGER documented in this encounter Plan of Treatment Not on file documented as of this encounter Visit Diagnoses Not on filedocumented in this encounter Care Teams Major Gifts Officer Relationship Specialty Start Date End Date Casey Berry II, DO PCP - General 11/22/06 08/17/19 Stephani Aleman MD PCP - General Family Medicine 08/18/19 09/16/20 Bianka Loera CNP [address] [place] [address] [address] [place] [phone] PCP - General Nurse Practitioner Family 09/17/2001/10 Desiree Patrick MD [address] [place] [address] PCP - General Electrophysiology 02/23/22 03/09/22 Desiree Patrick MD [address] [place] [address] 08/09/17 Farrah Nicole APRN,CORE MOUNTER [address] [place] [address] 08/09/17 Bry Echevarria MD [address] [place] [address] [place] [address] 08/09/17 Casey Berry II, DO 08/09/17 Shruti Vergara RN RN Registered Nurse 08/27/20 documented as of this encounter Additional Source Comments PLEASE NOTE: Replies to this message will not be received.[facility] and [facility]
--- OUTSIDE RECORDS SUMMARY | 2024-02-13 00:20 | XMS_ITS | Continuity of Care Document ---
Author Organization [facility] Address [address] [place] [address] Phone Care Team Providers Care Bit Grinder Name Role Phone Triston TRENT, PhD, Fabio Unavailable Unavai lable Allergies, Adverse Reactions, Alerts Substance Reaction Status Criticality Sulfa (Sulfonamide Antibiotics) Active No Information Penicillins Hives, Dermatitis Active No Informa tion Procedures Procedure Date Office/Outpatient Visit,[facility] Advance Directives Directive Yes / No Effective Date File Name No Information Encounters Encounter Description Practice Location Reason(s) For Visit Diagnoses Date Provider Providers Copied on Encounter [facility], [address], [place], [place], [id number], [place] tel:[phone] No Information Triston Mccarthy. [facility] [place], [address] [place] [address] [address], [place], [address], [place]. tel:[phone] Office/Outpat ient Visit,[facility], [address], [place], [place], [id number], [place] tel:[phone] [facility] [place] L4 fracture, initial encounter for closed fracture Kev Pfeiffer. [facility], [address] [place] [address] [address], [place], [address], [place]. tel:[phone] Referring Provider: Marli Sanders, [address], [address]. tel:[phone] Family History Family Member Type Diagnosis Age At Onset Father Problem (finding) Cancer, unknown type Payers Payer name Insurance type Covered libertarian ID Viet dillon(s) [facility] [id number] Social History Type Description Quantity Date Captured [...]
--- OUTSIDE RECORDS SUMMARY | 2024-02-13 00:20 | XMS_ITS | Encounter Summary ---
Author Organization [facility] Address [address] [place] [address] Care Team Providers Care Cnc Manufacturing Engineer Name Role Phone Jamal CARLISLE DO, Robert William Primary Care Provide r Unavailable Desiree Patrick MD Unavailable Farrah Nicole APRN,VIDEO TECHNICIAN Unavailable Bry Echevarria MD Unavailable Jamal CARLISLE DO, Robert William Unavailable Unav Stephani Diaz MD Primary Care Provider Shruti Vergara RN Unavailable Unavailable Bianka Loera CNP Primary Care Provider Desiree Patrick MD Primary Care P rovider Encounter Details Date Type Department Care Team (Late st Contact Info) Description 08/22/2014 Historical Conversion [facility] Family Medicine [address] [place] [address] Casey [place] II, DO Social History Tobacco Use Types Packs/Day Years Used Date Smoking Tobacco: Never Assessed Sex and Gender Information Value Date Recorded Sex Assigned at Not on file Gender Identity Not on file Sexual Orientation Not on file documented as of this encounter Progress Notes * Casey Berry II, DO - 01/29/2015 12:00 AM CDT CRISTIAN BLEDSOE : 1945 HX: [id number] DOS: 01/29/2015 CHIEF COMPLAINT: Follow up after [...] by:Casey Berry D.O. Feb 11 2015 7:55AM CERTIFIED PROFESSIONAL MIDWIFE * Casey Berry II, DO - 09/10/2014 12:00 AM CST CRISTIAN BLEDSOE : 1945 HX: [id number] DOS: 09/10/2014 CHIEF COMPLAINT: Follow up of [...] by:Casey Berry D.O. Sep 26 2014 3:33PM CERTIFIED PROFESSIONAL MIDWIFE documented in this encounter Miscellaneous Notes * [...] you have any questions. Casey Berry DO [facility] Electronically signed by:DEYANIRA FRANCOIS Dec 06 2014 9:03AM CERTIFIED PROFESSIONAL MIDWIFE documented in this encounter Plan of Treatment Not on file documented as of this encounter Visit Diagnoses Not on filedocumented in this encounter Care Teams Cnc Manufacturing Engineer Relationship Specialty Start Date End Date Casey Berry II, DO PCP - General 11/22/06 08/17/19 Stephani Aleman MD PCP - General Family Medicine 08/18/19 09/16/20 Bianka Loera, MOLD MAKING PLASTICS SHEETS SUPERVISOR [address] [place] [phone] PCP - General Nurse Practitioner Family 09/17/2001/10 Desiree Patrick MD [address] [place] [address] PCP - General Electrophysiology 02/23/22 03/09/22 Desiree Patrick MD [address] [place] [address] 08/09/17 Farrah Nicole APRN,VIDEO TECHNICIAN [address] [place] [address] 08/09/17 Bry Echevarria MD [address] [place] [address] [place] [address] 08/09/17 Casey Berry II, DO 08/09/17 Shruti Vergara RN RN Registered Nurse 08/27/20 documented as of this encounter Additional Source Comments PLEASE NOTE: Replies to this message will not be received.[facility] and [facility]
--- OUTSIDE RECORDS SUMMARY | 2024-02-13 00:20 | XMS_ITS | Data Portability ---
Author Organization [facility] Address [address] [place] [address] Care Team Providers Care Quantitative Software Engineer Name Role Phone [facility] Primary Care Provider Assessment No assessment recorded. Plan of Treatment Reminders Order Date Submit Date Provider Last Modified By Organization Details Last Modified Time Details Appointments None record ed. Lab None record ed. Referral None record ed. Procedures None record ed. Surgeries None record ed. Imaging None record ed. Medication Orders None record ed. Patient TargetsNo targets recorded. Patient Instructions Encounter Date Encounter Id Patient Instructions Last Modified By Organization Details Last Modified Time 03/17/2022 [id number] will plan follow up in December next year with PSA. Not available 03/17/2022 14:11:53 12/10/2022 [id number] doing well with undetectable PSA, plan follow up 1 year with PSA [email or web address] Not available 12/10/2022 11:43:14 12/14/2023 [id number] rtc 1 year with PSA. [email or web address] Not available 12/14/2023 11:08:24 Reason for Referral None Reported. Results Created Date Observation Date Name Description Value Unit Range Abnormal Flag LastModifiedBy Organization Detail LastModifiedTime Result Notes None recorded. Medical Equipment None Reported. Allergies Allergen ID Allergen Name Allergen Category Reaction Reaction Severity Criticality Documentation Date Start Date Code Code System Note Provider Name and Address Organization Details Recorded Time 074602 Medicinal product containin g penicilli n and acting as antibacte rial agent (product) medicatio n Not available Not available Not available 12/10/2022 90652 05 SNOMED Dona joaquin [facility] 11:31:20 [id number] Substance with sulfonami de structure and antibacte rial mechanism of action (substanc e) medicatio n Not available Not available Not available 12/10/2022 92801 8003 MILADIS Dona joaquin [facility] 11:31:26 Medications Name Sig Start Date Stop Date Status Note LastModified by Organization Details LastModified Time clindamycin HCl 300 mg capsule TAKE 1 CAPSULE BY MOUTH THREE TIMES DAILY UNTIL ALL TAKEN 12/13 completed Not Available Not Available Not Available azithromyci n 250 mg tablet 12/13 completed Not Available Not Available Not Available donepezil 10 mg tablet TAKE 1 TABLET BY MOUTH EVERY DAY active Not Available Not Available No t Available dofetilide 250 mcg capsule active Not Available Not Available Not Available lisinopril 10 mg tablet TAKE 1 TABLET BY MOUTH EVERY DAY active Not Available Not Available No t Available warfarin 5 mg tablet TAKE 1 TABLET BY MOUTH DAILY active Not Available Not Available No t Available carbidopa 25 mg-levodopa 100 mg tablet TAKE 3 TABLETS BY MOUTH THREE TIMES DAILY active Not Available Not Available No t Available fluticasone propionate 50 mcg/actuati on nasal spray,suspe nsion SHAKE LIQUID AND USE 2 SPRAYS IN EACH NOSTRIL EVERY DAY active Not Available Not Available No t Available ipratropium bromide 21 mcg (0.03 %) nasal spray INHALE 2 SPRAYS IN EACH NOSTRIL THREE TIMES DAILY 12/13 completed Not Available Not Available Not Available memantine 10 mg tablet TAKE 1 TABLET BY MOUTH TWICE DAILY active Not Available Not Available No t Available BinaxNOW COVID-19 Ag Self Test kit TEST DIRECTED TODAY 12/13 completed Not Available Not Available Not Available Lagevrio 200 mg capsule (EUA) TAKE 4 CAPSULES BY MOUTH TWICE DAILY FOR 5 DAYS 12/13 completed Not Available Not Available Not Available Vitals Date Recorded Body height Body mass index (BMI) Body weight Provider Name and Address Organization Details Last Updated DateTime 03/17/2022 185.42 cm 26 kg/m2 89709.7 g Winston Diane [facility] 03/17/2022 13:52:15 Date Recorded Body height Body mass index (BMI) Body weight Provider Name and Address Organization Details Last Updated DateTime 12/10/2022 185.42 cm 26 kg/m2 55007.7 g Dona Hull [facility] 12/10/2022 11:31:06 Date Recorded Body height Body mass index (BMI) Body weight Provider Name and Address Organization Details Last Updated DateTime 12/14/2023 185.42 cm 26 kg/m2 70236.7 g Amandeep Knox MD [address],[facility] [address], [place], [address] 12/14/2023 10:57:12 Social History Question Answer Notes LastModified by Organizat ion Details LastModified Time Tobacco Smoking Status Former Smoker Winston joaquin, [facility] 03/17/2022 13:52:26 What Is Your Level Of Alcohol Consumption? Occasional [email or web address] Information not available 12/10/2022 How Many Times Per Week Do You Consume Alcohol? 1-2 Times Per Week [email or web address] Information not available 12/10/2022 What Is Your Level Of Caffeine Consumption? Occasional [email or web address] Information not available 12/10/2022 When Did You Quit Smoking? 16+yearssincel astcigarette [email or web address] Information not available 12/10/2022 What Was The Date Of Your Most Recent Tobacco Screening? 12/14/2023 [email or web address] Information not available 12/14/2023 Have You Ever Been Counseled For Unhealthy Alcohol Use? No [email or web address] Information not available 12/14/2023 Do You Use Any Illicit Or Recreational Drugs? No [email or web address] Information not available 12/10/2022 Has Tobacco Cessation Counseling Been Provided? No [email or web address] Information not available 12/10/2022 Do You Or Have You Ever Used Any Other Forms Of Tobacco Or Nicotine? No [email or web address] Information not available 12/10/2022 How Many Days In The Past Year Have You Consumed 5 Or More Drinks? 0 [email or web address] Information no t available 12/14/2023 Sex: Unknown Functional Status None recorded. Mental Status None recorded. Family History Relationship Description Onset Age of this Age Resolved Age Notes Father Family history of malignant neoplasm of oral cavity Medical History Condition Response Other N High Blood Pressure Y Kidney Stones N Lung Disease N Depression N GERD/Acid Reflux N Sexually Transmitted Infection N Diabetes N Bleeding Disorder N Cancer Y High Cholesterol N Heart Disease N Immunizations Vaccine Type Date Status Provider Name and Address Organization Details Recorded Time COVID-19, mRNA, LNP-S, PF, 30 mcg/0.3 mL dose 08/15/2020 completed Amandeep Knox MD [address] [place] [address],[facility] [address], [address], [facility] 12/14/2023 10:57:18 COVID-19, mRNA, LNP-S, PF, 30 mcg/0.3 mL dose 09/05/2020 completed Amandeep Knox MD [address] [place] [address],[facility] [address], [address], [facility] 12/14/2023 10:57:18 COVID-19, mRNA, LNP-S, PF, 30 mcg/0.3 mL dose 04/29/2021 completed Amandeep Knox MD [address] [place] [address],[address], [address], [facility] 12/14/2023 10:57:19 COVID-19, mRNA, LNP-S, PF, 30 mcg/0.3 mL dose, enrique-sucrose 11/04/2021 completed Amandeep Knox MD [address] [place] [address],[address], [address], [facility] 12/14/2023 10:57:19 pneumococcal polysaccharide PPV23 01/28/2010 completed Amandeep Knox MD [address] [place] [address],[facility] [address], [address], [facility] 12/14/2023 10:57:19 Tdap 08/21/2013 completed Amandeep Knox MD [address] [place] [address],[address], [address], [facility] 12/14/2023 10:57:19 Novel [id number], all formulations 07/23/2009 completed Amandeep Knox MD [address] [place] [address],[address], [address], [facility] 12/14/2023 10:57:19 Pneumococcal conjugate PCV 13 08/28/2015 completed Amandeep Knox MD [address] [place] [address],[address], [address], [facility] 12/14/2023 10:57:19 Pneumococcal conjugate PCV 13 08/28/2016 completed Amandeep Knox MD [address] [place] [address],[address], [place], [address], [facility] 12/14/2023 10:57:19 zoster live 01/28/2010 completed Amandeep Knox MD [address] [place] [address],[address], [place], [address], [facility] 12/14/2023 10:57:19 Influenza, high-dose, trivalent, PF 03/30/2017 completed Amandeep Knox MD [address] [place] [address],[address], [address], [facility] 12/14/2023 10:57:19 Influenza, high-dose, trivalent, PF 04/15/2016 completed Amandeep Knox MD [address] [place] [address],[address], [address], [facility] 12/14/2023 10:57:19 Influenza, high-dose, trivalent, PF 04/26/2018 completed Amandeep Knox MD [address] [place] [address],[address] [place] [address], [address], [facility] 12/14/2023 10:57:19 Influenza, high-dose, trivalent, PF 05/10/2019 completed Amandeep Knox MD [address] [place] [address],[address] [place] [address], [address], [facility] 12/14/2023 10:57:19 Influenza, high-dose, trivalent, PF 05/28/2014 completed Amandeep Knox MD [address] [place] [address],[address], [address], [facility] 12/14/2023 10:57:19 Influenza, split virus, trivalent, preservative 05/05/2010 completed Amandeep Knox MD [address] [place] [address],[address] [place] [address], [address], [facility] 12/14/2023 10:57:19 Influenza, split virus, trivalent, preservative 05/09/2007 completed Amandeep Knox MD [address] [place] [address],[address] [place] [address], [address], [facility] 12/14/2023 10:57:19 Influenza, split virus, trivalent, preservative 05/14/2006 completed Amandeep Knox MD [address] [place] [address],[address], [place], [address], [facility] 12/14/2023 10:57:19 Influenza, split virus, trivalent, preservative 06/03/2005 completed Amandeep Knox MD [address] [place] [address],[address], [place], [address], [facility] 12/14/2023 10:57:19 Influenza, split virus, trivalent, preservative 06/15/2012 completed Amandeep Knox MD [address] [place] [address],[address], [place], [address], [facility] 12/14/2023 10:57:19 Influenza, split virus, trivalent, preservative 06/19/2013 completed Amandeep Knox MD [address] [place] [address],[address], [address], [facility] 12/14/2023 10:57:19 Influenza, split virus, trivalent, preservative 06/30/2008 completed Amandeep Knox MD [address] [place] [address],[address], [place], [address], [facility] 12/14/2023 10:57:19 Influenza, split virus, trivalent, PF 07/23/2009 completed Amandeep Knox MD [address] [place] [address],[address] [place] [address], [address], [facility] 12/14/2023 10:57:19 Influenza, split virus, trivalent, PF 03/26/2011 completed Amandeep Knox MD [address] [place] [address],[address], [address], [facility] 12/14/2023 10:57:19 Influenza, split virus, quadrivalent, PF 03/12/2020 completed Amandeep Knox MD [address] [place] [address],[address] [facility], [place], [address], [facility] 12/14/2023 10:57:19 Influenza, split virus, quadrivalent, PF 03/25/2021 completed Amandeep Knox MD [address] [place] [address],[address], [place], [address], [facility] 12/14/2023 10:57:19 Influenza, split virus, quadrivalent, PF 07/02/2015 completed Amandeep Knox MD [address], [place], [address], [facility] 12/14/2023 10:57:19 Past Encounters Encounter ID Performer Location Encounter Start Date Encounter Closed Date Diagnosis/Indication Diagnosis SNOMED-CT Code [id number] Amandeep Knox MD [address] [place] [address] 03/17/2022 13:41:31 03/19/2022 16:06:51 Malignant tumor of prostate [id number] Amandeep Knox MD [address] [address] 12/10/2022 11:09:53 12/18/2022 17:00:28 Malignant tumor of prostate [id number] Amandeep Knox MD [address] [place] [address] 12/14/2023 10:50:05 12/15/2023 15:17:05 Carcinoma of prostate [id number] Health Concerns Section Related Observation LastModified by Organization Detai ls LastModified Time None Recorded Concern Status LastModified by Organization Details LastModified Time None Recorded Advance Directives Directive None Recorded Payers Encounter Date Sequence Insurance Name Policy Number Policy Garcia Covered Member ID Garcia Member ID Guarantor Name 03/17/2022 1 [place] [employer] - [employer]EE PROGRAM 106 Rohan Carroll [id number] Rohan Carroll 12/10/2022 1 [place] 106 Rohan Carroll [id number] Rohan Carroll 12/14/2023 1 [place] 106 Rohan Carroll [id number] Rohan Carroll Notes Date Note Type Note Provider Name and Address Organization Details Recorded Time 03/17/2022 text/html HPI Notes: hx Ca P. had lupron and XRT done in 2017 in [place]. previous patient of Allyssa Haider. had an episode of XRT cystitis maybe about a year ago, none since. had cysto then. PSA been low 0.02-0.03. last checked 12/2021. Amandeep Knox MD [address] [place] [address],[address], [place], [address], [facility] 03/17/2022 14:15:54 12/10/2022 text/html HPI Notes: follo w up CaP, had lupron and XRT in 2017. PSA last month still undetectable at his local lab. voiding OK, no heme/dysuria. Amandeep Knox MD [address] [place] [address],[address], [place], [address], [facility] 12/10/2022 11:44:03 12/14/2023 text/html HPI Notes: PSA 11/19/23: <0.06ng/mL follow up for prostate cancer. hx CaP tx with XRT and 8 month lupron in 2017. voiding OK, had some hematuria after a deep tissue massage a while back. Amandeep Knox MD [address] [place] [address],[address], [place], [address], [facility] 12/14/2023 11:09:20
--- OUTSIDE RECORDS SUMMARY | 2024-02-13 00:20 | XMS_ITS | Encounter Summary ---
Author Organization [facility] Address [address] [place] [address] Care Team Providers Care Drapery Head Former Name Role Phone Jamal CARLISLE DO, Robert William Primary Care Provide r Unavailable Desiree Patrick MD Unavailable Farrah Nicole APRN, CNS Unavailable [phone] Bry Echevarria MD Unavailable [phone] Jamal CARLISLE DO, Robert William Unavailable Unav Stephani Diaz MD Primary Care Provider Shruti Vergara RN Unavailable Unavailable Bianka Loera CNP Primary Care Provider Desiree Patrick MD Primary Care P rovider Encounter Details Date Type Department Care Team (Late st Contact Info) Description 11/15/2006 Clinic Encounter [facility] Dermatology [address] [place] [address] Ganga Anderson MD Social History [...] Rohan Carroll : 1945 E: Ganga Anderson MD/[facility] DERMATOLOGY OFFICE VISIT CHART: 00-77-24-20 P Date of Service: 2006 Doc #: [id number] P Attending Physician: None available SUBJECTIVE: This [...] we will set up treatment as indicated. [facility] documented in this encounter Plan of Treatment Not on file documented as of this encounter Visit Diagnoses Not on filedocumented in this encounter Care Teams Drapery Head Former Relationship Specialty Start Date End Date Casey Berry II, DO PCP - General 11/22/06 08/17/19 Stephani Aleman MD PCP - General Family Medicine 08/18/19 09/16/20 Bianka Loera CNP [address] [place] [address] [address] [place] [address] PCP - General Nurse Practitioner Family 09/17/20 7/2 12/31 Desiree Patrick MD [address] [place] [address] PCP - General Electrophysiology 02/23/22 03/09/22 Desiree Patrick MD [address] [place] [address] 08/09/17 Farrah Nicole APRN,CONSTRUCTION ADMINISTRATOR [address] [place] [address] 08/09/17 Bry Echevarria MD [address] [place] [address] 08/09/17 Casey Berry II, DO 08/09/17 Shruti Vergara RN RN Registered Nurse 08/27/20 documented as of this encounter Additional Source Comments PLEASE NOTE: Replies to this message will not be received.[facility] and [facility]
--- OUTSIDE RECORDS SUMMARY | 2024-02-13 00:20 | XMS_ITS | Encounter Summary ---
Author Organization [facility] Address [address] [place] [address] Care Team Providers Care Paper Processing Machine Helper Name Role Phone Jamal CARLISLE DO, [...] (Late st Contact Info) Description 12/01/2006 HIM Billet Heater Operator Generic Billet Heater Operator [address] [place] [address] Social History Tobacco Use Types [...] on filedocumented in this encounter Care Teams Paper Processing Machine Helper Relationship Specialty Start Date End Date Casey Berry II, DO PCP - General 11/22/06 08/17/19 Stephani Aleman MD PCP - General Family Medicine 08/18/19 09/16/20 Bianka Loera CNP [address] [place] [address] PCP - General Nurse Practitioner Family 09/17/2001/10 Desiree Patrick MD [address] [place] [address] PCP - General Electrophysiology 02/23/22 03/09/22 Desiree Patrick MD [address] [place] [address] 08/09/17 Farrah Nicole APRN,BOBBIN INSPECTOR [address] [place] [address] 08/09/17 Bry Echevarria MD [address] [place] [phone] 08/09/17 Casey Berry II, DO 08/09/17 Shruti Vergara, RN RN Registered Nurse 08/27/20 documented as of this encounter Additional Source Comments PLEASE NOTE: Replies to this message will not be received.[facility]
--- OUTSIDE RECORDS SUMMARY | 2024-02-13 00:20 | XMS_ITS | Continuity of Care Document ---
Author Organization [facility] Address [employer] [address] [place] [address] Phone Care Team Providers Care Commissary Superintendent Name Role Phone VETO MALDONADO MD Unavailable Unavailable Procedures Procedure Date Subsqt Hosp-da E&m Minr Compl 7 Init Inpt Cons New/est Mod-hi 7 Advance Directives Directive Yes / No Effective Date File Name No Information Encounters Encounter Description Practice Location Reason(s) For Visit Diagnoses Date Provider Providers Copied on Encounter Subsqt Hosp-da E&m Minr Compl [facility], [address], [place], [place], [id number], [place] tel:[phone] [facility] No Information TAY LAWS. [address] [facility] [address], [address], [place]. tel:[phone] Referring Provider: GISEL VERDE, [address] [place] [address], [id number]. tel:[phone] Init Inpt Cons New/est Mod-hi [facility], [address], [place], [place], [id number], [place] tel:[phone] [facility] No Information ISAC PETTY. [address], [place], [id number], [place]. tel:[phone] Referring Provider: GISEL VERDE, [address] [address], [place], [place], [id number]. tel:[phone] Family History Family Member Type Diagnosis Age At Onset No Information Payers Payer name Insurance type Covered green party ID Authoriza tikayla(s) No Information Social History Type Description Quantity Date Captured Comments Sex Male Smoking Status No Information Chief Complaint And Reason For Visit No Information History Of Present Illness Encounter Date Complaint History Of Prese nt Illness No Information Instructions Date Instruction Additional Infor mation No Information Assessments Type Assessment Date No Information
--- OUTSIDE RECORDS SUMMARY | 2024-02-13 00:20 | XMS_ITS | Encounter Summary ---
Author Organization [facility] Address [address] [place] [address] Care Team Providers Care Compensator Name Role Phone Jamal CARLISLE DO, Robert William Primary Care Provide r Unavailable Desiree Patrick MD Unavailable Farrah Nicole APRN,NUCLEAR DESIGN ENGINEER Unavailable Bry Echevarria MD Unavailable Jamal CARLISLE DO, Robert William Unavailable Unav Stephani Diaz MD Primary Care Provider Shruti Vergara RN Unavailable Unavailable Bianka Loera CNP Primary Care Provider Desiere Patrick MD Primary Care P rovider Encounter Details Date Type Department Care Team (Late st Contact Info) Description [address] [address] Social History Tobacco Use Types Packs/Day Years [...] on filedocumented in this encounter Care Teams Compensator Relationship Specialty Start Date End Date Casey Berry II, DO PCP - General 11/22/06 08/17/19 Stephani Aleman MD PCP - General Family Medicine 08/18/19 09/16/20 Bianka Loera HOUSE PRINCIPAL [address] [place] [address] [address] [place] [phone] PCP - General Nurse Practitioner Family 09/17/20 712/31 Desiree Patrick MD [address] [place] [address] PCP - General Electrophysiology 02/23/22 03/09/22 Desiree Patrick MD [address] [place] [address] 08/09/17 Farrah Nicole APRN,NUCLEAR DESIGN ENGINEER [address] [place] [address] 08/09/17 Bry Echevarria MD [address] [place] [address] 08/09/17 Casey Berry II, DO 08/09/17 Shruti Vergara RN RN Registered Nurse 08/27/20 documented as of this encounter Additional Source Comments PLEASE NOTE: Replies to this message will not be received.[facility] and [facility]
--- OUTSIDE RECORDS SUMMARY | 2024-02-13 00:20 | XMS_ITS | Continuity of Care Document ---
Author Organization [facility] Address [address] [place] [address] Care Team Providers Care Chef German Name Role Phone [facility] Primary Care Provider Assessment No assessment recorded. [...] Modified By Organization Details Last Modified Time 12/14/2023 [id number] rtc 1 year with PSA. [email or web address] Not available 12/14/2023 11:08:24 Reason for Referral None Reported. Medical Equipment None Reported. Allergies Allergen ID Allergen Name Allergen Category Reaction Reaction Severity Criticality Documentation Date Start Date Code Code System Note Provider Name and Address Organization Details Recorded Time 320958 Medicinal product containin g penicilli n and acting as antibacte rial agent (product) medicatio n Not available Not available Not available 12/10/2022 23449 05 [facility] 11:31:20 [id number] Substance with sulfonami de structure and antibacte rial mechanism of action (substanc e) medicatio n Not available Not available Not available 12/10/2022 40037 8003 [place] joaquin [facility] 3 11:31:26 Medications Name Sig Start Date Stop [...] Updated DateTime 12/14/2023 185.42 cm 26 kg/m2 90079.7 g Amandeep Knox MD [address], [address] 12/14/2023 10:57:12 Social History Question Answer Notes LastModified by Organizat ion Details LastModified Time Tobacco Smoking Status Former Smoker Winston joaquin [facility] 03/17/2022 13:52:26 What Is Your Level Of Alcohol Consumption? Occasional [email or web address] Information not available 12/10/2022 How Many Times Per Week Do You Consume Alcohol? 1-2 Times Per Week [email or web address] Information not available 12/10/2022 What Is Your Level Of Caffeine Consumption? Occasional [email or web address] Information not available 12/10/2022 When Did You Quit Smoking? 16+yearssinkaren enriquez [email or web address] Information not available 12/10/2022 What Was The Date Of Your Most Recent Tobacco Screening? 12/14/2023 Information not available 12/14/2023 Have You Ever Been Counseled For Unhealthy Alcohol Use? No Information not available 12/14/2023 Do You Use Any Illicit Or Recreational Drugs? No [email or web address] Information not available 12/10/2022 Has Tobacco Cessation Counseling Been Provided? No [email or web address] Information not available 12/10/2022 Do You Or Have You Ever Used Any Other Forms Of Tobacco Or Nicotine? No [email or web address] Information not available 12/10/2022 How Many Days In The Past Year Have You Consumed 5 Or More Drinks? 0 [email or web address] Information no t available 12/14/2023 Sex: Unknown Functional Status None recorded. Mental Status None recorded. Family History Relationship Description Onset Age of this Age Resolved Age Notes Father Family history of malignant neoplasm of oral cavity Medical History Condition Response Other N High Blood Pressure Y Kidney Stones N Lung Disease N Depression N GERD/Acid Reflux N Sexually Transmitted Infection N Cancer Y High Cholesterol N Diabetes N Bleeding Disorder N Heart Disease N Immunizations Vaccine Type Date Status Provider Name and Address Organization Details Recorded Time COVID-19, mRNA, LNP-S, PF, 30 mcg/0.3 mL dose 08/15/2020 completed Amandeep Knox MD [address] [place] [address], [address], [facility] 12/14/2023 10:57:18 COVID-19, mRNA, LNP-S, PF, 30 mcg/0.3 mL dose 09/05/2020 completed Amandeep Knox MD [address] [place] [address],[address], [address], [facility] 12/14/2023 10:57:18 COVID-19, mRNA, LNP-S, PF, 30 mcg/0.3 mL dose 04/29/2021 completed Amandeep Knox MD [address] [place] [address],[address], [address], [facility] 12/14/2023 10:57:19 COVID-19, mRNA, LNP-S, PF, 30 mcg/0.3 mL dose, enrique-sucrose 11/04/2021 completed Amandeep Knox MD [address] [place] [address],[address], [place], [address], [facility] 12/14/2023 10:57:19 pneumococcal polysaccharide PPV23 01/28/2010 completed Amandeep Knox MD [address] [place] [address],[address], [place], [address], [facility] 12/14/2023 10:57:19 Tdap 08/21/2013 completed Amandeep Knox MD [address] [place] [address],[address], [place], [address], [facility] 12/14/2023 10:57:19 Novel Hflmqluzt-[id number], all formulations 07/23/2009 completed Amandeep Knox MD [address] [place] [address],[address], [place], [address], [facility] 12/14/2023 10:57:19 Pneumococcal conjugate PCV 13 08/28/2015 completed Amandeep Knox MD [address] [place] [address],[address], [place], [address], [facility] 12/14/2023 10:57:19 Pneumococcal conjugate PCV 13 08/28/2016 completed Amandeep Knox MD [address] [place] [address],[address], [place], [address], [facility] 12/14/2023 10:57:19 zoster live 01/28/2010 completed Amandeep Knox MD [address] [place] [address],[address], [place], [address], [facility] 12/14/2023 10:57:19 Influenza, high-dose, trivalent, PF 03/30/2017 completed Amandeep Knox MD [address] [place] [address],[address], [place], [address], [facility] 12/14/2023 10:57:19 Influenza, high-dose, trivalent, PF 04/15/2016 completed Amandeep Knox MD [address] [place] [address],[address], [address], [facility] 12/14/2023 10:57:19 Influenza, high-dose, trivalent, PF 04/26/2018 completed Amandeep Knox MD [address] [place] [address],[address], [address], [facility] 12/14/2023 10:57:19 Influenza, high-dose, trivalent, PF 05/10/2019 completed Amandeep Knox MD [address] [place] [address],[address], [address], [facility] 12/14/2023 10:57:19 Influenza, high-dose, trivalent, PF 05/28/2014 completed Amandeep Knox MD [address] [place] [address],[address], [address], [facility] 12/14/2023 10:57:19 Influenza, split virus, trivalent, preservative 05/05/2010 completed Amandeep Knox MD [address] [place] [address],[address] [place] [address], [address], [facility] 12/14/2023 10:57:19 Influenza, split virus, trivalent, preservative 05/09/2007 completed Amandeep Knox MD [address] [place] [address],[address] [place] [address], [address], [facility] 12/14/2023 10:57:19 Influenza, split virus, trivalent, preservative 05/14/2006 completed Amandeep Knox MD [address] [place] [address],[address] [place] [address], [address], [facility] 12/14/2023 10:57:19 Influenza, split virus, trivalent, preservative 06/03/2005 completed Amandeep Knox MD [address] [place] [address],[address], [address], [facility] 12/14/2023 10:57:19 Influenza, split virus, trivalent, preservative 06/15/2012 completed Amandeep Knox MD [address] [place] [address],[address], [address], [facility] 12/14/2023 10:57:19 Influenza, split virus, trivalent, preservative 06/19/2013 completed Amandeep Knox MD [address] [place] [address],[address], [address], [facility] 12/14/2023 10:57:19 Influenza, split virus, trivalent, preservative 06/30/2008 completed Amandeep Knox MD [address] [place] [address],[address] [place] [address], [address], [facility] 12/14/2023 10:57:19 Influenza, split virus, trivalent, PF 07/23/2009 completed Amandeep Knox MD [address] [place] [address],[address], [address], [facility] 12/14/2023 10:57:19 Influenza, split virus, trivalent, PF 03/26/2011 completed Amandeep Knox MD [address] [place] [address],[address] [place] [address], [address], [facility] 12/14/2023 10:57:19 Influenza, split virus, quadrivalent, PF 03/12/2020 completed Amandepe Knox MD [address] [place] [address],[address], [address], [facility] 12/14/2023 10:57:19 Influenza, split virus, quadrivalent, PF 03/25/2021 completed Amandeep Knox MD [address] [place] [address],[address] [place] [address], [address], [facility] 12/14/2023 10:57:19 Influenza, split virus, quadrivalent, PF 07/02/2015 completed Amandeep Knox MD [address] [place] [address],[address] [place] [address], [address], [facility] 12/14/2023 10:57:19 Past Encounters Encounter ID Performer Location Encounter Start Date Encounter Closed Date Diagnosis/Indication Diagnosis SNOMED-CT Code [id number] Amandeep Knox MD [facility] [address] [place] [address] 12/14/2023 10:50:05 12/15/2023 15:17:05 Carcinoma of prostate [id number] Health Concerns Section Related Observation LastModified by Organization Detai ls LastModified Time None Recorded Concern Status LastModified by Organization Details LastModified Time None Recorded Payers Encounter Date Sequence Insurance Name Policy Number Policy Garcia Covered Member ID Garcia Member ID Guarantor Name 12/14/2023 1 [facility] 106 Rohan Carroll [id number] Rohan Carroll Notes Date Note Type Note Provider Name and Address Organization Details Recorded Time 12/14/2023 text/html HPI Notes: PSA 11/19/23: <0.06ng/mL follow up for prostate cancer. hx CaP tx with XRT and 8 month lupron in 2017. voiding OK, had some hematuria after a deep tissue massage a while back. Amandeep Knox MD [address] [place] [address],[address], [place], [address], [facility] 12/14/2023 11:09:20
--- OUTSIDE RECORDS SUMMARY | 2024-02-13 00:21 | XMS_ITS | Clinical Summary ---
Author [facility] Address [address] [place] [address] Care Team Providers Care Circulation Analyst Name Role Phone Unavailable Primary Care Provider Unavailabl e Source Comments You are receiving this document as you are listed as the primary care provider,follow-up provider, or the patient has been referred to you for consultation.This is in compliance with the Medicare and[facility] EHR Incentive Program,which states Providers who transition their patient to another setting of careor provider of care or refers their patient to another provider of care shouldprovide summary care record for each transition of care or referral. [facility] Center[facility] Allergies Active Allergy Reactions Criticality Noted Date [...] Description 12/03/2023 Telephone [facility] [id number] [address] [place] [address] Thierry Lin MD Anticoagulation from Last [...]
--- OUTSIDE RECORDS SUMMARY | 2024-02-13 00:21 | XMS_ITS | Encounter Summary ---
Author Organization [facility] Address [address] [place] [address] Care Team Providers Care Electrical Tech Name Role Phone Unavailable Primary Care Provider Unavailabl e Reason for Visit * Reason Comments Anticoagulation Encounter Details Date Type Department Care Team (Late st Contact Info) Description 12/03/2023 Telephone Anticoagulation Centralized Services [id number] [address] [place] [phone] Thierry Lin MD [address] [place] [address] Anticoagulation Social History Tobacco Use Types [...]
== END 2024-01-27 12:28 | disposition home or self-care (01) ==
PROVIDERS: PCP Family Medicine; Visit Provider Family Medicine
DX: R55 Syncope and collapse (principal)
CPT/HCPCS: A0998

== ENCOUNTER 2024-01-28 13:56 | Outpatient (CLI) | payer BC, SELFPAY ==
--- OUTSIDE RECORDS SUMMARY | 2024-01-28 14:00 | XMS_ITS | Clinical Summary ---
Author Organization [employer] [facility] Address [place], [place] [address] Care Team Providers Care Plain Goods Hemmer Name Role Phone Marli Sauceda MD Primary Care Provider + Allergies Active Allergy Reactions Criticality Noted Date Comments Penicillins Hives,Rash Medium 02/03/2022 Sulfa (Sulfonamide Antibiotics) Rash Medium 12/2015 Medications [...] (250 mcg) by mouth every 12 hours. Pt is due for labs/EKG February 2024 180 Capsule 11/30/2023 Active Active Problems Problem Noted Date Diagnosed Date Ascending aorta dilatation 04/24/2022 PAF (paroxysmal atrial fibrillation) 04/24/2022 Parkinson disease 04/24/2022 Encounters Date Type Department Care Team Description 01/19/2024 Orders Only [facility] [address] [place] [address] Fabio Goldstein MD <No scans attached> 12/07/2023 Telephone [facility] [address] [place] [address] Juan Manuel Pelayo, AuD Hearing Aid 11/25/2023 12:30 PM CDT Office Visit [facility] [address] [place] [address] Juan Manuel Pealyo, AuD Hearing Aid 11/25/2023 Orders Only [facility] Scanner 1 scan: (1-Ord) SHUBERT, MULTIPLE RESULTS, 11/25/2023 11/25/2023 Orders Only [facility] Scanner 1 scan: (1-Ord) NORMAL ECG, 11/25/2023 11/25/2023 Travel 11/16/2023 Telephone [facility] [address] [facility] [address] [place] [address] Kiya Gomes RN Medication Management (Tikosyn/) from Last 3 Months Social History Tobacco Use Types Packs/Day Years Used Date Smoking Tobacco: Never Assessed Social Connections Answer Date Recorded Frequency of Communication with Friends and Fami ly Not on file 04/24/2022 Sex and Gender Information Value Date Recorded Sex Assigned at Not on file Gender Identity Not on file Sexual Orientation Not on file Plan of Treatment Health Maintenance Due Date [...] history exists Influenza for age 65+ 03/12/2024 Procedures Procedure Name Priority Date/Time Associated Diagnosis Comments SCAN-ELECTROCARDIOG THEA EKG 11/25/2023 12:00 AM CDT SCAN-LABORATORY REPORT 11/25/2023 12:00 AM CDT from Last 3 Months Results * SCAN-LABORATORY REPORT (11/25/2023 12:00 AM CDT) Scanner OTHER * SCAN-ELECTROCARDIOGRAM EKG (11/25/2023 12:00 AM CDT) Scanner OTHER from Last 3 Months Care Teams Plain Goods Hemmer Relationship Specialty Start Date End Date Marli Sauceda MD [address] [place] [address] PCP - General Family Practice 03/13/22
--- OUTSIDE RECORDS SUMMARY | 2024-01-28 14:01 | XMS_ITS | Encounter Summary ---
Author Organization [employer] Address [address] [place] [address] Care Team Providers Care Certified Driver Examiner Name Role Phone Jamal CARLISLE DO, Robert William Primary Care Provide r Unavailable Desiree Patrick MD Unavailable Farrah Nicole APRN,PALLET RECTIFIER Unavailable [phone] Bry Echevarria MD Unavailable Jamal CARLISLE DO, Robert William Unavailable Unav Stephani Diaz MD Primary Care Provider [phone] Shruti Vergara RN Unavailable Unavailable Bianka Loera CNP Primary Care Provider Desiree Patrick MD Primary Care P rovider Encounter Details Date Type Department Care Team (Late st Contact Info) Description 06/13/2018 Historical Conversion [facility] Family [facility] [address] [facility] [place] [address] Bry Echevarria MD [address] [place] [address] Social History Tobacco Use Types [...] AM CST CRISTIAN BLEDSOE : 1945 HX: [id number] DOS: 06/13/2018 SUBJECTIVE: Patient is a 72-year-old [...] Jose Winslow in Radiation Oncology at the [facility]. He has not recently had [...] Prostate cancer, status post treatment with radiation. [place] to be under good control at this [...] later. Bry Echevarria M.D./ekg-6 cc: Yury Berry DO/[facility] Radha cc: Elder Maloney MD/[facility] Radha cc: Mare Rubi PA-C/[facility] Radha cc: Jose Winslow MD/[facility] Electronically signed by:Bry Echevarria M.D. 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 WORKER documented in this encounter Plan of Treatment Not on file documented as of this encounter Visit Diagnoses Not on filedocumented in this encounter Care Teams Certified Driver Examiner Relationship Specialty Start Date End Date Casey Berry II, DO PCP - General 11/22/06 08/17/19 Stephani Aleman MD PCP - General Family Medicine 08/18/19 09/16/20 Bianka Loera TEMPER MILL ROLLER [address] [place] [phone] PCP - General Nurse Practitioner Family 09/17/2001/10 Desiree Patrick MD [address] [place] [address] PCP - General Electrophysiology 02/23/22 03/09/22 Desiree Patrick MD [address] [place] [address] 08/09/17 Farrah Nicole, SENIOR MANAGING DIRECTOR,PALLET RECTIFIER [address] [place] [address] 08/09/17 Bry Echevarria MD [address] [place] [address] 08/09/17 Casey Berry II, DO 08/09/17 Shruti Vergara RN RN Registered Nurse 08/27/20 documented as of this encounter Additional Source Comments PLEASE NOTE: Replies to this message will not be received.[facility]
--- OUTSIDE RECORDS SUMMARY | 2024-01-28 14:01 | XMS_ITS | Encounter Summary ---
Author Organization [employer] Address [address] [place] [address] Care Team Providers Care Tube Splicer Name Role Phone Jamal CARLISLE DO, Robert William Primary Care Provide r Unavailable Desiree Patrick MD Unavailable Farrah Nicole APRN,ASW SPECIALIST Unavailable Bry Echevarria MD Unavailable [phone] Jamal CARLISLE DO, Robert William Unavailable Unav Stephani Diaz MD Primary Care Provider Shruti Vergara RN Unavailable Unavailable Bianka Loera CNP Primary Care Provider [phone] Desiree Patrick MD Primary Care P rovider Encounter Details Date Type Department Care Team (Late st Contact Info) Description 09/08/2018 Historical Conversion [facility] Family Medicine [address] [place] [id number] Casey Berry II, DO Social History Tobacco [...] Comments Blood Pressure 122/74 09/08/2018 12:00 AM LAST MARKER Pulse - - Temperature - - Respiratory Rate - - Oxygen Saturation - - Inhaled Oxygen Concentration - - Weight 92.8 kg (204 lb 9.7 oz) 09/08/2018 12:00 AM LAST MARKER Height 184 cm (6' 0.44) 09/08/2018 12:00 AM LAST MARKER Body Mass Index 27.41 09/08/2018 12:00 AM LAST MARKER documented in this encounter Functional Status Functional [...] on filedocumented in this encounter Care Teams Tube Splicer Relationship Specialty Start Date End Date Casey Berry II, DO PCP - General 11/22/06 08/17/19 Stephani Aleman MD PCP - General Family Medicine 08/18/19 09/16/20 Bianka Loera CNP [address] [facility] [address] [place] [address] PCP - General Nurse Practitioner Family 09/17/2001/10 [place] [address] [place] [address] PCP - General Electrophysiology 02/23/22 03/09/22 Desiree Patrick MD [address] [place] [address] 08/09/17 Farrah Nicole APRN,ASW SPECIALIST [address] [facility] [place] [address] 08/09/17 Bry Echevarria MD [address] [place] [address] [place] [address] 08/09/17 Casey Berry II, DO 08/09/17 Shruti Vergara RN RN Registered Nurse 08/27/20 documented as of this encounter Additional Source Comments PLEASE NOTE: Replies to this message will not be received.[facility] and [facility]
--- OUTSIDE RECORDS SUMMARY | 2024-01-28 14:01 | XMS_ITS | Referral Summary ---
Author Organization [employer] Address [address] [place] [address] Care Team Providers Care Steam And Power Supervisor Name Role Phone Desiree Patrick MD Unavailable Farrah Nicole APRN,PLY BANDER Unavailable Bry Echevarria MD Unavailable [phone] Jamal CARLISLE DO, Robert William Unavailable Unav [...] ipratropium (ATROVENT) 21 mcg (0.03 %) nasal [place], Non-AerosolIndicatio ns:PND (post-nasal drip) 2 Sprays by [...] 5 mg oral TabletIndications:Pa roxysmal atrial fibrillation (HCC),assisted (current) use of anticoagulants TAKE 1 TABLET [...] 11/09/2018 Muscle tightness 11/09/2018 Bilateral foot-drop 11/09/2018 assisted (current) use of anticoagulants 2018 Encounter for monitoring dofetilide therapy 06/11 Atrial fibrillation (HCC) 06/21/2017 Essential hypertension 10/21/2016 Thoracic ascending aortic aneurysm 06/11/2016 Overview: 4.2 x 4.[address] [facility] Atrial flutter 11/15/2015 Esophageal dysmotility Overview: [...] any clubs o r organizations such as denominational groups, unions, fraternal or athletic groups, or [...] and heating? Not hard at all 04/04/2021 [facility] - Occupational Stress [...] to sleep or slept in a senior care (including now)? No 04/04/2021 Depression (PHQ-9) Answer Date Recorded Last PHQ-9 Score Not on file 08/27/2022 Thoughts of self harm Not at all 08/27/2022 Education Answer Date Recorded What is the highest level of school you have completed or the highest degree you have received? Master's degree (e.g., MA, MS, [place], MEd, TRIPLE VALVE MECHANIC, ROHIT) 08/19/2020 Sex and Gender Information Value [...] HEPATITIS C AB Routine 08/26/2021 10:09 AM CRIME SCENE SPECIALIST Need for hepatitis C screening test COLONOSCOPY Routine 02/27/2020 8:05 AM CDT LIPID PANEL Routine 08/18/2019 9:23 AM CRIME SCENE SPECIALIST Screening for lipid disorders from Last 3 Months or Most Recently Relevant to Health Maintenance Results * (ABNORMAL) HEPATITIS C AB (08/26/2021 10:09 AM CRIME SCENE SPECIALIST) HCV Ab Reactive( A) Nonreactive 08/26/2021 7:41 PM CRIME SCENE SPECIALIST [facility] Comment: This is a reportable disease sent to the [facility]. 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 State of associated disease not determined. Blood VENOUS BLOOD / Unknown Venipuncture / Unknown 08/26/2021 10:09 AM CRIME SCENE SPECIALIST 08/26/2021 10:09 AM CRIME SCENE SPECIALIST Bianka Loera [facility] LAB SEROLOGY ORDERAB LES Performing Organization Address [facility] Co de Phone Number [facility] [address] [place] [address] * COLONOSCOPY (02/27/2020 8:05 AM CDT) 02/27/2020 8:05 AM CDT Narrative [facility] ENDO - 02/27/2020 9:20 AM CDT [facility] Patient Name: Rohan Carroll Procedure Date: 02/27/2020 [...] of the bowel preparation was ?excellent. The [id number] was introduced through the anus ?and advanced [...] 8:05 AM Stephani Aleman MD GI PROCEDURES [employer] ENDO * (ABNORMAL) LIPID PANEL (08/18/2019 9:23 AM CRIME SCENE SPECIALIST) Cholesterol 96 0 - 200 mg/dL 08/18/2019 7:32 PM CRIME SCENE SPECIALIST [facility] Triglycerides 65 30 - 150 mg/dL 08/18/2019 7:32 PM CRIME SCENE SPECIALIST [facility] Cholesterol, LDL (Calculated) 45 0 - 159 mg/dL 08/18/2019 7:32 PM [facility] Cholesterol, HDL 38(L) >40 mg/dL 08/18/19 20 7:32 PM [facility] Cholesterol, vLDL 13 mg/dL 020 7:32 PM [facility] Blood VENOUS BLOOD SPECIMEN / Unknown Venipuncture / Unknown 08/18/2019 9:23 AM CRIME SCENE SPECIALIST 08/18/2019 9:23 AM CRIME SCENE SPECIALIST Stephani Aleman MD LAB CHEMISTRY ORDERA [facility] [address] [place], [place] [phone] from Last 3 Months or Most Recently Relevant to Health Maintenance Advance Directives Documents on File Type Date Recorded Patient Podiatric Technician Expl anation Advanced Directives 08/23/2014 3:05 PM [facility] * Full Code (Latest Code Status on File) Date Activated Date Inactivated Comments 06/21/2017 3:50 PM 06/24/2017 4:37 PM * Full Code Date Activated Date Inactivated Comments 10/19/2016 4:45 PM 10/20/2016 8:57 PM * Full Code Date Activated Date Inactivated Comments 11/15/2015 11:16 PM 11/16/2015 11:46 AM Care Teams Steam And Power Supervisor Relationship Specialty Start Date End Date Desiree Patrick MD [address] [place] [phone] 08/09/17 Farrah Nicole APRN,PLY BANDER [address] [place] [address] 08/09/17 Bry Echevarria MD [address] [place], [place] [address] [phone] 08/09/17 Casey Berry II, DO 08/09/17 Shruti Vergara, RN RN Registered Nurse 08/27/20 Additional Source Comments PLEASE NOTE: Replies to this message will not be received.[facility]
--- OUTSIDE RECORDS SUMMARY | 2024-01-28 14:01 | XMS_ITS | Encounter Summary ---
Author Organization [email or web address] Address [address] [place] [address] Care Team Providers Care Foreclosure Home Inspector Name Role Phone Jamal CARLISLE DO, Robert William Primary Care Provide r Unavailable Desiree Patrick MD Unavailable Farrah Nicole APRN,LEASING PROFESSIONAL Unavailable Bry Echevarria MD Unavailable Jamal CARLISLE DO, Robert William Unavailable Unav Stephani Diaz MD Primary Care Provider Shruti Vergara RN Unavailable Unavailable Bianka Loera CNP Primary Care Provider Desiree Patrick MD Primary Care P rovider Encounter Details Date Type Department Care Team (Late st Contact Info) Description 09/08/2018 Historical Conversion [facility] Family Medicine [address] [place] [address] Casey Berry II, DO Social History Tobacco [...] of this encounter H&P Notes * Casey eBrry II, DO - 09/08/2018 12:00 AM CST [...] DAILY CBC; Status:Resulted - Requires Verification; Done: [id number] 09:12AM Comprehensive Metabolic Panel; Status:Resulted - Requires Verification; Done: 67Ymv9049 09:12AM Lipid Panel; Status:Resulted - Requires Verification; Done: 08Sep2018 09:12AM Vitamin D Total [facility]; Status:Resulted - Requires Verification; Done: 08Sep2018 09:12AM Ataxia Drawing Fee; Status:Complete; Done: 08Sep2018 Balance Center Consult Consult Only Evaluation and Treatment Status: Hold For - Required information Requested for: [id number] Phone Number to Contact Patient: : See chart to Provider, Practice or Agency: : [facility] Folate; Status:Resulted - Requires Verification; Done: [...] 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 HEALTH CARE MAINTENANCE: Colonoscopy in 2009, due in 2019. Current Meds 1. Dofetilide 250 MCG Oral Capsule; TAKE 1 CAPSULE EVERY 12 HOURS; Last Rx:[id number] Ordered 2. Jantoven 5 MG Oral Tablet; TAKE 1 1/2 TABLET BY MOUTH ON WEDNESDAYS, AND 1 TABLET BY MOUTH ALL OTHER DAYS OF THE WEEK DIRECTED; Therapy: 13Apr2018 to (Evaluate:28Sep2018) Requested for: 35Dgv0994; Last Rx:[id number] Ordered 3. Lisinopril 10 MG Oral Tablet; TAKE ONE TABLET DAILY; Therapy: 18Oct2017 to Recorded 4. Metoclopramide HCl - 5 MG Oral Tablet; TAKE 1 TABLET BY MOUTH THREE TIMES DAILY WITH MEALS NEEDED; Therapy: 10Sep2014 to (Evaluate:78Lcp7643) Requested for: 73Hpl9076; Last Rx:17Hpy4748 Ordered 5. Oxybutynin Chloride ER 10 MG Oral Tablet Extended Release 24 Hour; TAKE 1 TABLET DAILY; Therapy: 70Gup4103 to (Evaluate:61Ecw4585) Requested for: 94Krv8956; Last Rx:[id number] Ordered 6. Polyethylene Glycol 3350 Oral Powder; take 17 grams in 8 ounces of fluid once daily as needed for constipation; Therapy: 81Ohk0285 to (Evaluate:27May2018); Last Rx:[id number] Ordered 7. Sildenafil Citrate 100 MG Oral Tablet; Take 1/2-1 tab 1 hour before sexual activity; Therapy: 08Igc3929 to (Last Rx:10Qvv7362) Requested for: 22Fdn5758 Ordered 8. Triamcinolone Acetonide 0.1 % External Lotion; APPLY 2-3 TIMES DAILY TO AFFECTED AREA(S); Therapy: 99Yqu9412 to (Last Rx:16Jdc3995) Requested for: 96Zrn7674 Ordered Allergies 1. Penicillins 2. Sulfa Drugs [...] Prostate firm, no masses, nontender. Results/Data CBC 78Qsp8175 09:12AM Jamal Casey FASTING Test Name Result Flag Reference WBC [...] 0.9 L 1.0-4.7 Vitamin D Total [facility] 65Gao8247 09:12 Casey Berry Test Name Result Flag Reference Vitamin D Total - [facility] 20.9 ng/ml L 30-100 Deficiency <10ng/mL Insufficiency 10-29 ng/mL Sufficiency 30-100 ng/mL Possible Toxicity >100 ng/mL TSH [id number] 09:12 Casey Berry FASTING Test Name Result Flag Reference TSH 1.670 uIU/ml 0.30-4.70 Vitamin B12 08Sep2018 09:12AM Casey Berry Test Name Result Flag Reference Vitamin B12 382 pg/ml 200-1000 Folate 89Iyp8506 09:12AM Casey Berry Test Name Result Flag Reference Folate >20.0 ng/ml H 6.6-19.9 Signatures Casey Berry II, D.Veena/jaj-28 REVISED NOTE 09/12/2018/naomie Electronically signed by : Casey Berry DO; Sep 09 2018 11:14AM HAND COMPOSITOR Electronically signed by : Casey Berry DO; Sep 12 2018 9:09AM HAND COMPOSITOR documented in this encounter Plan of Treatment Not on file documented as of this encounter Visit Diagnoses Not on filedocumented in this encounter Care Teams Foreclosure Home Inspector Relationship Specialty Start Date End Date Casey Berry II, DO PCP - General 11/22/06 08/17/19 Stephani Aleman MD PCP - General Family Medicine 08/18/19 09/16/20 Bianka Loera LABORATORY MECHANICAL TECHNICIAN [address] [place] [phone] PCP - General Nurse Practitioner Family 09/17/20 712/31 Desiree Patrick MD [address] [place] [address] PCP - General Electrophysiology 02/23/22 03/09/22 Desiree Patrick MD [address] [place] [address] 08/09/17 Farrah Nicole APRN,LEASING PROFESSIONAL [address] [place] [address] 08/09/17 Bry Echevarria MD [facility] [place] [address] 08/09/17 Casey Berry II, DO 08/09/17 Shruti Vergara RN RN Registered Nurse 08/27/20 documented as of this encounter Additional Source Comments PLEASE NOTE: Replies to this message will not be received.[facility] and [facility]
--- OUTSIDE RECORDS SUMMARY | 2024-01-28 14:01 | XMS_ITS | Encounter Summary ---
Author Organization [employer] Address [address] [place] [address] Care Team Providers Care General Production Laborer Name Role Phone Jamal CARLISLE DO, Robert William Primary Care Provide r Unavailable Desiree Patrick MD Unavailable Farrah Nicole APRN,ENDOCRINOLOGY NURSE Unavailable Bry Echevarria MD Unavailable Jamal CARLISLE DO, Robert William Unavailable Unav Stephani Diaz MD Primary Care Provider Shruti Vergara RN Unavailable Unavailable Bianka Loera CNP Primary Care Provider Desiree Patrick MD Primary Care P rovider Encounter Details Date Type Department Care Team (Late st Contact Info) Description 09/07/[address] [facility] Family Medicine [address] [place] [address] Casey Berry II, DO Social History Tobacco [...] Comments Blood Pressure 144/85 09/07/2017 12:00 AM FRAME TABLE OPERATOR HELPER Pulse - - Temperature - - Respiratory Rate - - Oxygen Saturation - - Inhaled Oxygen Concentration - - Weight 94.3 kg (207 lb 14.3 oz) 018 12:00 AM FRAME TABLE OPERATOR HELPER Height 185.5 cm (6' 1.03) 09/07/2017 1 2:00 AM FRAME TABLE OPERATOR HELPER Body Mass Index 27.4 09/07/2017 12:00 AM FRAME TABLE OPERATOR HELPER documented in this encounter Functional Status Functional [...] filedocumented in this encounter Care Teams General Production Laborer Relationship Specialty Start Date End Date Casey Berry II, DO PCP - General 11/22/06 08/17/19 Stephani Aleman MD PCP - General Family Medicine 08/18/19 09/16/20 Bianka Loera CNP [address] [facility] [address] [place] [address] PCP - General Nurse Practitioner Family 09/17/2001/10 [place] [address] [place] [address] PCP - General Electrophysiology 02/23/22 03/09/22 Desiree Patrick MD [address] [place] [address] 08/09/17 Farrah Nicole APRN,ENDOCRINOLOGY NURSE [address] [place] [address] 08/09/17 Bry Echevarria MD [address] [place] [address] [place] [address] 08/09/17 Casey Berry II, DO 08/09/17 Shruti Vergara RN RN Registered Nurse 08/27/20 documented as of this encounter Additional Source Comments PLEASE NOTE: Replies to this message will not be received.[facility] and [facility]
--- OUTSIDE RECORDS SUMMARY | 2024-01-28 14:01 | XMS_ITS | Encounter Summary ---
Author Organization [employer] Address [address] [place] [address] Care Team Providers Care Counter Tacker Name Role Phone Jamal CARLISLE DO, Robert William Primary Care Provide r Unavailable Desiree Patrick MD Unavailable Farrah Nicole APRN,BARBECUE COOK Unavailable Bry Echevarria MD Unavailable [phone] Jamal CARLISLE DO, Robert William Unavailable Unav Stephani Diaz MD Primary Care Provider Shruti Vergara RN Unavailable Unavailable Bianka Loera CNP Primary Care Provider Desiree Patrick MD Primary Care P rovider Encounter Details Date Type Department Care Team (Late st Contact Info) Description 09/19/2018 Historical Conversion [facility] Family Medicine [address] [place] [address] Trish Barone, PT Social History Tobacco Use [...] by:Trish Barone PT Oct 12 2018 5:27PM PETROLEUM GEOLOGY FACULTY MEMBER AMENDMENTS: 1. Patient received 4 feet of green theraband on this date of service. Electronically signed by:Trish Barone PT Oct 12 2018 5:28PM PETROLEUM GEOLOGY FACULTY MEMBER * Trish Barone, PT - 10/03/2018 12:00 [...] per day with the dogs. He attends [employer] with his 2 times a week. OBJECTIVE: [...] by:Trish Barone PT Oct 03 2018 1:23PM PETROLEUM GEOLOGY FACULTY MEMBER * Trish Barone, PT - 09/19/2018 12:00 AM CDT CRISTIAN BLEDSOE : 1945 HX: [id number] DOS: 09/19/2018 REFERRING PROVIDER: Casey Berry D.O. 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 He is currently [...] PATIENT RECEIVED: Patient received 30 minutes of blnj-zs-gyuw evaluation with three or more comorbidities and three or more elements addressed. Clinical presentation is evolving and clinical complexity is moderate. Patient also received canalith repositioning maneuvers on this date. Trish Barone, PT, [place] #[id number] Electronically signed by:Trish Barone PT Sep 26 2018 8:37AM PETROLEUM GEOLOGY FACULTY MEMBER documented in this encounter Plan of Treatment Not on file documented as of this encounter Visit Diagnoses Not on filedocumented in this encounter Care Teams Counter Tacker Relationship Specialty Start Date End Date Casey Berry II, DO PCP - General 11/22/06 08/17/19 Stephani Aleman MD PCP - General Family Medicine 08/18/19 09/16/20 Bianka Loera CNP [address] [place] [address] [address] [place] [phone] PCP - General Nurse Practitioner Family 09/17/2001/10 Desiree Patrick MD [address] [place] [address] PCP - General Electrophysiology 02/23/22 03/09/22 Desiree Patrick MD [address] [place] [address] 08/09/17 Farrah Nicole APRN,BARBECUE COOK [address] [place] [address] 08/09/17 Bry Echevarria MD [facility] [place] [address] 08/09/17 Casey Berry II, DO 08/09/17 Shruti Vergara RN RN Registered Nurse 08/27/20 documented as of this encounter Additional Source Comments PLEASE NOTE: Replies to this message will not be received.[facility]
--- OUTSIDE RECORDS SUMMARY | 2024-01-28 14:01 | XMS_ITS | Encounter Summary ---
Author Organization [employer] Address [address] [place] [address] Care Team Providers Care Spray Machine Loader Name Role Phone Jamal CARLISLE DO, Robert William Primary Care Provide r Unavailable Desiree Patrick MD Unavailable Farrah Nicole APRN,FURNACE HELPER Unavailable Bry Echevarria MD Unavailable [phone] Jamal CARLISLE DO, Robert William Unavailable Unav Stephani Diaz MD Primary Care Provider Shruti Vergara RN Unavailable Unavailable Bianka Loera CNP Primary Care Provider Desiree Patrick MD Primary Care P rovider Encounter Details Date Type Department Care Team (Late st Contact Info) Description 06/23/2018 Historical Conversion [facility] Family Medicine [address] [place] [address] Moon Maloney MD Social History Tobacco Use [...] Comments Blood Pressure 120/62 06/23/2018 12:00 AM METAL FABRICATING SUPERVISOR Pulse - - Temperature - - Respiratory Rate - - Oxygen Saturation - - Inhaled Oxygen Concentration - - Weight 93.5 kg (206 lb 2.1 oz) 06/23/2018 12:00 AM METAL FABRICATING SUPERVISOR Height - - Body Mass Index 27.2 06/20/2018 8:23 AM METAL FABRICATING SUPERVISOR documented in this encounter Functional Status [...] on filedocumented in this encounter Care Teams Spray Machine Loader Relationship Specialty Start Date End Date Casey Berry II, DO PCP - General 11/22/06 08/17/19 Stephani Aleman MD PCP - General Family Medicine 08/18/19 09/16/20 Bianka Loera CNP [address] [facility] [address] [place] [phone] PCP - General Nurse Practitioner Family 09/17/2001/10 [place] [address] [place] [phone] PCP - General Electrophysiology 02/23/22 03/09/22 Desiree Patrick MD [address] [place] [address] 08/09/17 Farrah Nicole APRN,FURNACE HELPER [address] [place] [address] 08/09/17 Bry Echevarria MD [address] [place] [address] 08/09/17 Casey Berry II, DO 08/09/17 Shruti Vergara RN RN Registered Nurse 08/27/20 documented as of this encounter Additional Source Comments PLEASE NOTE: Replies to this message will not be received.[facility] and [facility]
--- OUTSIDE RECORDS SUMMARY | 2024-01-28 14:01 | XMS_ITS | Encounter Summary ---
Author Organization [employer] Address [address] [place] [address] Care Team Providers Care Classification Case Manager Name Role Phone Jamal CARLISLE DO, Robert William Primary Care Provide r Unavailable Desiree Patrick MD Unavailable Farrah Nicole APRN,PROJECT MANAGEMENT INTERN Unavailable Bry Echevarria MD Unavailable Jamal CARLISLE DO, Robert William Unavailable Unav Stephani Diaz MD Primary Care Provider Shruti Vergara RN Unavailable Unavailable Bianka Loera CNP Primary Care Provider [phone] Desiree Patrick MD Primary Care P rovider Encounter Details Date Type Department Care Team (Late st Contact Info) Description 10/18/2017 Historical Conversion [facility] Family Medicine [address] [place] [address] Casey Berry II, DO Social History Tobacco [...] Body Mass Index 27.09 09/07/2017 12:00 AM BRIDGE IRONWORKER HELPER documented in this encounter Functional Status [...] on filedocumented in this encounter Care Teams Classification Case Manager Relationship Specialty Start Date End Date Casey Berry II, DO PCP - General 11/22/06 08/17/19 Stephani Aleman MD PCP - General Family Medicine 08/18/19 09/16/20 Bianka Loera CNP [address] [facility] [address] [place] [phone] PCP - General Nurse Practitioner Family 09/17/2001/10 [place] [address] [place] [address] PCP - General Electrophysiology 02/23/22 03/09/22 Desiree Patrick MD [address] [place] [address] 08/09/17 Farrah Nicole APRN,PROJECT MANAGEMENT INTERN [address] [place] [address] 08/09/17 Bry Echevarria MD [address] [place] [address] 08/09/17 Casey Berry II, DO 08/09/17 Shruti Vergara RN RN Registered Nurse 08/27/20 documented as of this encounter Additional Source Comments PLEASE NOTE: Replies to this message will not be received.[facility] and [facility]
--- OUTSIDE RECORDS SUMMARY | 2024-01-28 14:01 | XMS_ITS | Encounter Summary ---
Author Organization [facility] [employer] Address [address] [place] [address] Care Team Providers Care Pit Supervisor Name Role Phone Desiree Patrick MD Unavailable Farrah Nicole APRN, CNS Unavailable [phone] Bry Echevarria MD Unavailable [phone] Jamal CARLISLE DO, Robert William Unavailable Unav ailable Shruti Vergara RN Unavailable Unavailable Desiree Patrick MD Primary Care P rovider Encounter Details Date Type Department Care Team (Late st Contact Info) Description 02/25/[address] [address] Social History Tobacco Use Types Packs/Day Years Used Date Smoking Tobacco: Former Cigarettes 1 18 961 - 1978 Smokeless Tobacco: Never Alcohol [...] How often do you attend chur or islam services? More than 4 times per year [...] and heating? Not hard at all 04/04/2021 [facility] [place] of Occupat ional Health - Occupational Stress [...] Master's degree (e.g., MA, MS, [place]lande, MEd, SUPERVISOR INTERNATIONAL RESERVATIONS, [employer]) 08/19/2020 Sex and Gender Information Value [...] on filedocumented in this encounter Care Teams Pit Supervisor Relationship Specialty Start Date End Date Desiree Patrick MD [address] [place] [address] PCP - General Electrophysiology 02/23/22 03/09/22 Desiree Patrick MD [address] [place] [address] 08/09/17 Farrah Nicole APRN,AGENCY DIRECTOR [address] [place] [address] 08/09/17 Bry Echevarria MD [address] [place] [address] 08/09/17 Casey Berry II, DO 08/09/17 Shruti Vergara RN RN Registered Nurse 08/27/20 documented as of this encounter Additional Source Comments PLEASE NOTE: Replies to this message will not be received.[facility] and [facility]placed By [facility]
--- OUTSIDE RECORDS SUMMARY | 2024-01-28 14:01 | XMS_ITS | Encounter Summary ---
Author Organization [employer] Address [address] [place] [address] Care Team Providers Care Precision Machining Instructor Name Role Phone Jamal CARLISLE DO, Robert William Primary Care Provide r Unavailable Desiree Patrick MD Unavailable Farrah Nicole APRN,ENGINEERING LECTURER Unavailable [phone] Bry Echevarria MD Unavailable Jamal CARLISLE DO, Robert William Unavailable Unav Stephani Diaz MD Primary Care Provider Shruti Vergara RN Unavailable Unavailable Bianka Loera CNP Primary Care Provider Desiree Patrick MD Primary Care P rovider Encounter Details Date Type Department Care Team (Late st Contact Info) Description 06/13/2018 Historical Conversion [facility] Family Medicine [address] [place] [address] Social History Tobacco Use Types Packs/Day Years [...] as of this encounter Progress Notes * [facility], GENERICPROVIDER - 11/02/2018 12:00 AM CDT Balance [...] week. Joan Everett PTA/Kassy Barone PT, [place] #[id number] Electronically signed by:Joan Everett PTA Nov 02 2018 2:00PM REROLLER HAND Call Person/Recorder Electronically signed by:Trish Barone PT Nov 07 2018 4:43PM REROLLER HAND * [facility] - 10/26/2018 12:00 AM [...] by:Joan Everett PTA Oct 28 2018 7:51AM REROLLER HAND Call Person/Recorder Electronically signed by:Trish Barone PT Oct 31 2018 7:01PM REROLLER HAND * [facility] - 09/19/2018 12:00 AM CDT PHYSICAL THERAPY STUDENT NOTE BALANCE EVALUATION CRISTIAN BLEDSOE : 1945 HX: [id number] DOS: 09/19/2018 REFERRING PROVIDER: Casey Berry D.O. 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 He is currently [...] PATIENT RECEIVED: Patient received 30 minutes of jrmb-dr-wasy evaluation with three or more comorbidities and three or more elements addressed. Clinical presentation is evolving and clinical complexity is moderate. Patient also received canalith repositioning maneuvers on this date. Lennox LEAHY/Trish Barone, PT #[id number] / lb-12 cc: Casey Berry D.O., [facility] Electronically signed by:Lennox Malagon Sep 20 2018 7:56PM REROLLER HAND Co-author Electronically signed by:Lennox Malagon Sep 27 2018 8:39AM REROLLER HAND Co-author Electronically signed by:Trish Barone PT Oct 02 2018 5:18PM REROLLER HAND documented in this encounter Procedure Notes * [facility] - 10/26/2018 12:00 AM CDTAssociated Order(s): ANTICOAGULATION [...] by:Tiffani Carrero RN Oct 26 2018 4:16PM REROLLER HAND * [facility] - 10/11/2018 12:00 AM CDTAssociated Order(s): ANTICOAGULATION Antico[facility] Name: CRISTIAN BLEDSOE : 1945 DOS: 10/11/2018 [...] by:Tiffani Carrero RN Oct 11 2018 3:39PM REROLLER HAND * [facility] - 09/07/2018 12:00 AM CSTAssociated Order(s): ANTICOAGULATION An[facility] Name: CRISTIAN BLEDSOE : 1945 DOS: 09/07/2018 [...] by:Tiffani Carrero RN Sep 07 2018 3:31PM REROLLER HAND * [facility] - 08/22/2018 12:00 AM CSTAssociated Order(s): ANTICOAGULATION Anticoagulation [facility] Name: CRISTIAN BLEDSOE : 1945 DOS: 08/22/2018 [...] by:Tiffani Carrero RN Aug 22 2018 2:48PM REROLLER HAND * [facility], GENERICPROVIDER - 07/13/2018 12:00 AM CSTAssociated Order(s): ANTICOAGULATION Antico[facility] Name: CRISTIAN BLEDSOE : 1945 DOS: 07/13/2018 [...] by:Tiffani Carrero RN Jul 13 2018 2:41PM REROLLER HAND * [facility] - 06/13/2018 12:00 AM CSTAssociated Order(s): ANTICOAGULATION [...] Deborah Mandel RN; Jun 13 2018 12:37PM REROLLER HAND documented in this encounter Plan of Treatment Not on file documented as of this encounter Procedures Procedure Name Priority Date/Time Associated Diagnosis Comments ANTICOAGULATION 10/26/2018 ANTICOAGULATION 10/11/2018 ANTICOAGULATION 09/07/2018 ANTICOAGULATION 08/22/2018 ANTICOAGULATION 07/13/2018 ANTICOAGULATION 06/13/2018 documented in this encounter Results * ANTICOAGULATION (10/26/2018) Narrative Procedure Note [facility], [facility]HEL[facility] - 10/26/2018 12:00 AM CDT Name: CRISTIAN [...] by:Tiffani Carrero RN Oct 26 2018 4:16PM REROLLER HAND [facility] OTHER * ANTICOAGULATION (10/11/2018) Narrative Procedure Note [facility], GENERICPROGINADER - 10/11/2018 12:00 AM CDT Anticoagulation Clinic [facility] Name: CRISTIAN BLEDSOE : 1945 DOS: 10/11/2018 [...] by:Tiffani Carrero RN Oct 11 2018 3:39PM REROLLER HAND [facility] OTHER * ANTICOAGULATION (09/07/2018) Narrative Procedure Note [facility], [facility] - 09/07/2018 12:00 AM CST Anticoagulation [facility] Name: CRISTIAN BLEDSOE : 1945 DOS: 09/07/2018 [...] by:Tiffani Carrero RN Sep 07 2018 3:31PM REROLLER HAND [facility] OTHER * ANTICOAGULATION (08/22/2018) Narrative Procedure Note [facility] - 08/22/2018 12:00 AM CST Anticoagulation [facility] Name: CRISTIAN BLEDSOE : 1945 DOS: 08/22/2018 [...] by:Tiffani Carrero RN Aug 22 2018 2:48PM REROLLER HAND [facility] OTHER * ANTICOAGULATION (07/13/2018) Narrative Procedure Note [facility] - 07/13/2018 12:00 AM CST Anticoagulation Clinic [facility] Name: CRISTIAN BLEDSOE : 1945 DOS: 07/13/2018 [...] by:Tiffani Carrero RN Jul 13 2018 2:41PM REROLLER HAND [facility] OTHER * ANTICOAGULATION (06/13/2018) Narrative Procedure Note [facility] - 06/13/2018 12:00 AM CST [facility] Comments [...] Deborah Mandel RN; Jun 13 2018 12:37PM REROLLER HAND Genericprovider [facility] OTHER documented in this encounter Visit Diagnoses Not on filedocumented in this encounter Care Teams Precision Machining Instructor Relationship Specialty Start Date End Date Casey Berry II, DO PCP - General 11/22/06 08/17/19 Stephani Aleman MD PCP - General Family Medicine 08/18/19 09/16/20 Bianka Loera CNP [address] [place] [phone] PCP - General Nurse Practitioner Family 09/17/2001/10 Desiree Patrick MD [address] [place] [address] PCP - General Electrophysiology 02/23/22 03/09/22 Desiree Patrick MD [address] [place] [address] 08/09/17 Farrah Nicole APRN,ENGINEERING LECTURER [address] [place] [address] 08/09/[address] [facility] [place] [place] [address] 08/09/17 Casey Berry II DO 08/09/17 Shruti Vergara, RN RN Registered Nurse 08/27/20 documented as of this encounter Additional Source Comments PLEASE NOTE: Replies to this message will not be received.[facility] and [facility]
--- OUTSIDE RECORDS SUMMARY | 2024-01-28 14:01 | XMS_ITS | Encounter Summary ---
Author Organization [facility] Address [address] [place] [address] Care Team Providers Care Injection Molding Machine Offbearer Name Role Phone Jamal CARLISLE DO, Robert William Primary Care Provide r Unavailable Desiree Patrick MD Unavailable Farrah Nicole APRN,SHOES SALESPERSON Unavailable Bry Echevarria MD Unavailable Jamal CARLISLE DO, Robert William Unavailable Unav Stephani Diaz MD Primary Care Provider Shruti Vergara RN Unavailable Unavailable Bianka Loera CNP Primary Care Provider Desiree Patrick MD Primary Care P rovider Encounter Details Date Type Department Care Team (Late st Contact Info) Description 09/07/[address] [facility] Family Medicine [address] [place] [address] Casey Berry II, DO Social History Tobacco [...] Bilateral leg pain History of Present Illness Cefvuqp-kud-irgh-old male who states that he was shoveling [...] TAKE 1 CAPSULE EVERY 12 HOURS; Last Rx:[id number] Ordered 2. Lisinopril 10 MG Oral Tablet; TAKE ONE TABLET DAILY; Therapy: 18Oct2017 to Recorded 3. Metoclopramide HCl - 5 MG Oral Tablet; TAKE 1 TABLET BY MOUTH THREE TIMES DAILY WITH MEALS NEEDED; Therapy: 10Sep2014 to (Evaluate:29Oct2017) Requested for: 05Rpt9595; Last Rx:[id number] Ordered 4. Polyethylene Glycol 3350 Oral Powder; take 17 grams in 8 ounces of fluid once daily as needed for constipation; Therapy: 91Drg9501 to (Evaluate:27May2018); Last Rx:[id number] Ordered 5. Triamcinolone Acetonide 0.1 % External Lotion; APPLY 2-3 TIMES DAILY TO AFFECTED AREA(S); Therapy: 84Gsn7551 to (Last Rx:05Php6901) Requested for: 74Urv2835 Ordered 6. Warfarin Sodium 5 MG Oral Tablet; Take as directed by ACC; Therapy: 85Ksa6934 to (Evaluate:10Sep2018) Requested for: 15Sep2017 Recorded Allergies [...] Casey Berry DO; Oct 25 2017 10:02AM TRACKWALKER documented in this encounter H&P Notes * [...] healthy by no longer smoking.; Status:Complete; Done: 34Mnn4785 Reason For Visit Routine history and physical. [...] DAILY; Therapy: 14Apr2017 to (Evaluate:27May2018) Requested for: 17Ndx9176; Last Rx:[id number] Ordered 3. Dofetilide 250 MCG Oral Capsule; TAKE 1 CAPSULE EVERY 12 HOURS; Last Rx:[id number] Ordered 4. Metoclopramide HCl - 5 MG Oral Tablet; TAKE 1 TABLET BY MOUTH THREE TIMES DAILY WITH MEALS NEEDED; Therapy: 10Sep2014 to (Evaluate:29Oct2017) Requested for: 95Pdd6469; Last Rx:73Hnr5715 Ordered 5. Metoprolol Tartrate 50 MG Oral Tablet; TAKE 1/2 TABLET TWICE DAILY; Therapy: (Recorded:35Hse6264) to Recorded 6. Polyethylene Glycol 3350 Oral Powder; take 17 grams in 8 ounces of fluid once daily as needed for constipation; Therapy: 01Jul2017 to (Evaluate:27May2018); Last Rx:[id number] Ordered 7. Warfarin Sodium 5 MG Oral Tablet; Take as directed by ACC; Therapy: 18Lxg5500 to (Evaluate:28May2018) Requested for: 02Jun2017 Recorded Allergies 1. Penicillins 2. Sulfa Drugs PENICILLIN AND SULFA. Immunizations Prevnar in 2016. Pneumovax in 2009. Tetanus in 2013. Shingles in 2009. Vitals Recorded: 68Yit5618 08:20AM Systolic 144 Diastolic 85 Heart Rate [...] Casey Berry DO; Sep 20 2017 7:51AM TRACKWALKER documented in this encounter Plan of Treatment Not on file documented as of this encounter Visit Diagnoses Not on filedocumented in this encounter Care Teams Injection Molding Machine Offbearer Relationship Specialty Start Date End Date Casey Berry II, DO PCP - General 11/22/06 08/17/19 Stephani Aleman MD PCP - General Family Medicine 08/18/19 09/16/20 Bianka Loera CNP [address] [place] [address] [address] [place] [phone] PCP - General Nurse Practitioner Family 09/17/2001/10 [place] [address] [place] [phone] PCP - General Electrophysiology 02/23/22 03/09/22 Desiree Patrick MD [address] [place] [address] 08/09/17 Farrah Nicole APRN,SHOES SALESPERSON [address] [place] [address] 08/09/17 Bry Echevarria MD [address] [place] [address] 08/09/17 Casey Berry II, DO 08/09/17 Shruti Vergara RN RN Registered Nurse 08/27/20 documented as of this encounter Additional Source Comments PLEASE NOTE: Replies to this message will not be received.[facility] and [facility]
--- OUTSIDE RECORDS SUMMARY | 2024-01-28 14:01 | XMS_ITS | Encounter Summary ---
Author Organization [employer] Address [address] [place] [address] Care Team Providers Care Cmm Operator Name Role Phone Jamal CARLISLE DO, Robert William Primary Care Provide r Unavailable Desiree Patrick MD Unavailable Farrah Nicole APRN,SAMPLER AND TEST PREPARER Unavailable Bry Echevarria MD Unavailable [phone] Jamal CARLISLE DO, Robert William Unavailable Unav Stephani Diaz MD Primary Care Provider Shruti Vergara RN Unavailable Unavailable Bianka Loera CNP Primary Care Provider Desiree Patrick MD Primary Care P rovider Encounter Details Date Type Department Care Team (Late st Contact Info) Description 06/23/2018 Historical Conversion [facility] Family Medicine [address] [place] [address] Moon Maloney MD Social History Tobacco Use [...] MD - 07/22/2018 12:00 AM CST UROLOGY [facility] CRISTIAN BLEDSOE : 1945 HX: [id number] DOS: 07/22/2018 SUBJECTIVE: Cristian saw me on [...] Moon Maloney M.D./la-15 cc: Casey Berry II, D.O./[facility] Electronically signed by:Moon Maloney M.D. Jul 27 2018 9:15AM CHANNELING MACHINE OPERATOR * Moon Maloney MD - 06/23/2018 12:00 AM CST UROLOGY CRISTIAN BLEDSOE : [birth year]/[id number] 06/23/2018 SUBJECTIVE: Cristian comes to see me [...] short-term ADT. He is not on any TAKE AWAY WORKER. His most recent PSA was 0.051 so [...] and we will go from there. Moon K. Gemar, M.D./mdh-14 cc: Dr. Kofi Navarro-[facility] Electronically signed by:Moon Maloney M.D. Jun 24 2018 12:40PM CHANNELING MACHINE OPERATOR documented in this encounter Plan of Treatment Not on file documented as of this encounter Visit Diagnoses Not on filedocumented in this encounter Care Teams Cmm Operator Relationship Specialty Start Date End Date Casey Berry II, DO PCP - General 11/22/06 08/17/19 Stephani Aleman MD PCP - General Family Medicine 08/18/19 09/16/20 Bianka Loera CNP [address] [place] [phone] PCP - General Nurse Practitioner Family 09/17/2001/10 Desiree Patrick MD [address] [place] [address] PCP - General Electrophysiology 02/23/22 03/09/22 Desiree Patrick MD [address] [place] [address] 08/09/17 Farrah Nicole APRN,SAMPLER AND TEST PREPARER [address] [place] [address] 08/09/17 Bry Echevarria MD [facility] [address] [place] [address] 08/09/17 Casey Berry II, DO 08/09/17 Shruti Vergara RN RN Registered Nurse 08/27/20 documented as of this encounter Additional Source Comments PLEASE NOTE: Replies to this message will not be received.[facility] and [facility]
--- OUTSIDE RECORDS SUMMARY | 2024-01-28 14:01 | XMS_ITS | Clinical Summary ---
Author Organization [employer] Address [address] [place] [address] Care Team Providers Care Personal Lines Sales Rep Name Role Phone Desiree Patrick MD Unavailable Farrah Nicole APRN,FOOD SALES CLERK Unavailable Bry Echevarria MD Unavailable Jamal CARLISLE [...] ipratropium (ATROVENT) 21 mcg (0.03 %) nasal [place], Non-AerosolIndicatio ns:PND (post-nasal drip) 2 Sprays by [...] 5 mg oral TabletIndications:Pa roxysmal atrial fibrillation (HCC),longterm (current) use of anticoagulants TAKE 1 TABLET [...] 11/09/2018 Muscle tightness 11/09/2018 Bilateral foot-drop 11/09/2018 longterm (current) use of anticoagulants 2018 Encounter for monitoring dofetilide therapy 06/11 Atrial fibrillation (HCC) 06/21/2017 Essential hypertension 10/21/2016 Thoracic ascending aortic aneurysm 06/11/2016 Overview: 4.2 x 4.3 on [facility] Atrial flutter 11/15/2015 Esophageal [...] week 04/04/2021 How often do you attend [facility] or christianity services? More than 4 times per year 04/04/2021 Do you belong to any clubs o r organizations such as hoahaoism groups, unions, fraternal or athletic groups, or [...] and heating? Not hard at all 04/04/2021 [facility] [place] of Occupat ional Health - Occupational Stress [...] place to sleep or slept in a alf (including now)? No 04/04/2021 Depression (PHQ-9) Answer Date Recorded Last PHQ-9 Score Not on file 08/27/2022 Thoughts of self harm Not at all 08/27/2022 Education Answer Date Recorded What is the highest level of school you have completed or the highest degree you have received? 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 INSTALLER, [employer]OH[employer]) 08/19/2020 Sex and Gender Information Value [...] Zoster Sequential (2 of 3) 03/25/2010 01/28/2010 Depression Screening 08/26/2022 08/26/2021 COVID-19 Vaccine ( season) 2023 11/04/2021, 04/29/2021, 09/05/2020, Additional history exists DTaP/Tdap/Td Vaccines (2 - Td or Tdap) 08/21/2023 08/21/2013, 12/26/2002 Influenza Vaccine (#1) 2024 2, 03/25/2021, 03/12/2020, Additional history exists Lipids Standard [...] HEPATITIS C AB Routine 08/26/2021 10:09 AM MICROFICHE CAMERA OPERATOR Need for hepatitis C screening test COLONOSCOPY Routine 02/27/2020 8:05 AM CDT LIPID PANEL Routine 08/18/2019 9:23 AM MICROFICHE CAMERA OPERATOR Screening for lipid disorders from Last 3 Months or Most Recently Relevant to Health Maintenance Results * (ABNORMAL) HEPATITIS C AB (08/26/2021 10:09 AM MICROFICHE CAMERA OPERATOR) HCV Ab Reactive( A) Nonreactive 08/26/2021 7:41 PM MICROFICHE CAMERA OPERATOR [facility] Comment: This is a reportable disease sent to the [place] [facility]. 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 State of associated disease not determined. Blood VENOUS BLOOD / Unknown Venipuncture / Unknown 08/26/2021 10:09 AM MICROFICHE CAMERA OPERATOR 08/26/2021 10:09 AM MICROFICHE CAMERA OPERATOR Bianka Loera CERTIFIED REGISTERED NURSE PRACTITIONER LAB SEROLOGY ORDERAB LES [facility] [address] [place] [address] * COLONOSCOPY (02/27/2020 8:05 AM CDT) 02/27/2020 8:05 AM CDT Narrative [facility] END[facility] - 02/27/2020 9:20 AM CDT [facility] Patient Name: Rohan Carroll Procedure Date: 02/27/2020 8:05 AM Date of : 1945 Admit Type: Outpatient Age: 74 Room: [facility] Gender: Male Note Status: Finalized [...] of the bowel preparation was ?excellent. The [id number] was introduced through the anus ?and advanced [...] 8:05 AM Stephani Aleman MD GI PROCEDURES [employer] ENDO * (ABNORMAL) LIPID PANEL (08/18/2019 9:23 AM MICROFICHE CAMERA OPERATOR) Cholesterol 96 0 - 200 mg/dL 08/18/2019 7:32 PM MICROFICHE CAMERA OPERATOR [facility] Triglycerides 65 30 - 150 mg/dL 08/18/2019 7:32 PM [facility] Cholesterol, LDL (Calculated) 45 0 - 159 mg/dL 08/18/2019 7:32 PM MICROFICHE CAMERA OPERATOR [facility] [employer] [facility] Cholesterol, HDL 38(L) >40 mg/dL 08/18/19 20 7:32 PM [facility] [employer] [facility] Cholesterol, vLDL 13 mg/dL 020 7:32 PM [facility] [employer] [facility] Blood VENOUS BLOOD SPECIMEN / Unknown Venipuncture / Unknown 08/18/2019 9:23 AM MICROFICHE CAMERA OPERATOR 08/18/2019 9:23 AM MICROFICHE CAMERA OPERATOR Stephani Aleman MD LAB CHEMISTRY ALEN MORENO [facility] [address] [place] [address] from Last 3 Months or Most Recently Relevant to Health Maintenance Advance Directives Documents on File Type Date Recorded Patient Wood Room Hand Expl anation Advanced Directives 08/23/2014 3:05 PM [facility] * Full Code (Latest Code Status on File) Date Activated Date Inactivated Comments 06/21/2017 3:50 PM 06/24/2017 4:37 PM * Full Code Date Activated Date Inactivated Comments 10/19/2016 4:45 PM 10/20/2016 8:57 PM * Full Code Date Activated Date Inactivated Comments 11/15/2015 11:16 PM 11/16/2015 11:46 AM Care Teams Personal Lines Sales Rep Relationship Specialty Start Date End Date Desiree Patrick MD [address] [place] [address] 08/09/17 Farrah Nicole APRN,FOOD SALES CLERK [address] [place] [address] 08/09/17 Bry Echevarria MD [address] [place] [address] 08/09/17 Casey Berry II, DO 08/09/17 Shruti Vergara RN RN Registered Nurse 08/27/20 Additional Source Comments PLEASE NOTE: Replies to this message will not be received.[facility] and [facility]
--- OUTSIDE RECORDS SUMMARY | 2024-01-28 14:01 | XMS_ITS | Encounter Summary ---
Author Organization [employer] Address [address] [place] [address] Care Team Providers Care Business Initiatives Manager Name Role Phone Jamal CARLISLE DO, Robert William Primary Care Provide r Unavailable Desiree Patrick MD Unavailable Farrah Nicole APRN,OUTSIDE SALES ACCOUNT EXECUTIVE Unavailable [phone] Bry Echevarria MD Unavailable [phone] Jamal CARLISLE DO, Robert William Unavailable Unav Stephani Diaz MD Primary Care Provider [phone] Shruti Vergara RN Unavailable Unavailable Bianka Loera CNP Primary Care Provider [phone] Desiree Patrick MD Primary Care P rovider Encounter Details Date Type Department Care Team (Late st Contact Info) Description 07/22/2018 Historical Conversion [facility] Family Medicine [address] [place] [address] Moon Maloney MD Social History Tobacco Use [...] Comments Blood Pressure 120/58 07/22/2018 12:00 AM PILL COATER Pulse - - Temperature - - Respiratory Rate - - Oxygen Saturation - - Inhaled Oxygen Concentration - - Weight 93.8 kg (206 lb 12.7 oz) 019 12:00 AM PILL COATER Height - - Body Mass Index 27.28 06/20/2018 8:23 AM PILL COATER documented in this encounter Functional Status Functional [...] filedocumented in this encounter Care Teams Business Initiatives Manager Relationship Specialty Start Date End Date Casey Berry II, DO PCP - General 11/22/06 08/17/19 Stephani Aleman MD PCP - General Family Medicine 08/18/19 09/16/20 Bianka Loera CNP [address] [facility] [address] [place] [phone] PCP - General Nurse Practitioner Family 09/17/2001/10 [place] [address] [place] [address] PCP - General Electrophysiology 02/23/22 03/09/22 Desiree Patrick MD [address] [place] [address] 08/09/17 Farrah Nicole APRN,OUTSIDE SALES ACCOUNT EXECUTIVE [address] [place] [address] 08/09/17 Bry Echevarria MD [address] [place] [address] 08/09/17 Casey Berry II, DO 08/09/17 Shruti Vergara RN RN Registered Nurse 08/27/20 documented as of this encounter Additional Source Comments PLEASE NOTE: Replies to this message will not be received.[facility] and [facility]
--- OUTSIDE RECORDS SUMMARY | 2024-01-28 14:01 | XMS_ITS | Encounter Summary ---
Author Organization [employer] Address [address] [place] [address] Care Team Providers Care Weaving Professor Name Role Phone Jamal CARLISLE DO, Robert William Primary Care Provide r Unavailable Desiree Patrick MD Unavailable Farrah Nicole APRN,MACHINE HOSE CUTTER Unavailable Bry Echevarria MD Unavailable Jamal CARLISLE DO, Robert William Unavailable Unav Stephani Diaz MD Primary Care Provider [phone] Shruti Vergara RN Unavailable Unavailable Bianka Loera CNP Primary Care Provider Desiree Patrick MD Primary Care P rovider Encounter Details Date Type Department Care Team (Late st Contact Info) Description 03/01/2018 Historical Conversion [facility] Family Medicine [address] [facility] [place] [address] Desiree Rubi PAC [address] [place] [address] Social History Tobacco Use Types [...] Body Mass Index 26.81 09/07/2017 12:00 AM SCREEN ROOM OPERATOR documented in this encounter Functional Status [...] CDT UROLOGY CRISTIAN BLEDSOE : 1945 HX: [id number] DOS: 03/01/2018 HISTORY OF PRESENT ILLNESS: This patient is a 72-year-old gentleman who presents to the Urology clinic. In the past he has had a rubber nodularity on both sides of his prostate with a PSA velocity change. His PCA3 came back positive in the past. He had a biopsy in October 2016 that showed [place] 6 prostate cancer at the left base of the prostate involving 2%. He also had [place] 7 cancerat the left mid-prostate involving 5% of the tissue. The right mid-prostate had [place] 7 cancer involving 20% of the tissue in the area. Also, at the right apex, he had Curt 7 cancer involving 5%of the tissue. He [...] think he normally sees Farrah Jacobo APRN, MACHINE HOSE CUTTER, at the [facility], so we will try to reach out [...] meantime we will check with Cardiology in [place] about the option of Viagra or Cialis [...] P.A.-C./jmf- 24 cc: Jose Winslow M.D./Radiation Oncology [facility] cc: Casey Berry D.O./[facility] cc: Moon Maloney M.D./[facility] Electronically signed by:Desiree Rubi PA-C Mar 04 2018 1:27PM SCREEN ROOM OPERATOR documented in this encounter Plan of Treatment Not on file documented as of this encounter Visit Diagnoses Not on filedocumented in this encounter Care Teams Weaving Professor Relationship Specialty Start Date End Date Casey Berry II, DO PCP - General 11/22/06 08/17/19 Stephani Aleman MD PCP - General Family Medicine 08/18/19 09/16/20 Bianka Loera JAVA LEAD [address] [place] [address] PCP - General Nurse Practitioner Family 09/17/20 712/31 Desiree Patrick MD [address] [place] [address] PCP - General Electrophysiology 02/23/22 03/09/22 Desiree Patrick MD [address] [place] [address] 08/09/17 Farrah Nicole APRN,MACHINE HOSE CUTTER [address] [place] [address] 08/09/17 Bry Echevarria MD [facility] [place] [address] 08/09/17 Casey Berry II, DO 08/09/17 Shruti Vergara RN RN Registered Nurse 08/27/20 documented as of this encounter Additional Source Comments PLEASE NOTE: Replies to this message will not be received.[facility] and [facility]
--- OUTSIDE RECORDS SUMMARY | 2024-01-28 14:01 | XMS_ITS | Encounter Summary ---
Author Organization [facility] Address [address] [place] [address] Care Team Providers Care Principal Gifts Officer Name Role Phone Jamal CARLISLE DO, Robert William Primary Care Provide r Unavailable Desiree Patrick MD Unavailable Farrah Nicole APRN,GEAR GENERATOR SET UP OPERATOR Unavailable Bry Echevarria MD Unavailable Jamal CARLISLE DO, Robert William Unavailable Unav Stephani Diaz MD Primary Care Provider Shruti Vergara RN Unavailable Unavailable Bianka Loera CNP Primary Care Provider [phone] Desiree Patrick MD Primary Care P rovider Encounter Details Date Type Department Care Team (Late st Contact Info) Description 02/06/2019 HIM Punch Press Feeder [facility] Heart & Vascular [address] [address] Rakesh Williamson Chi, MD Social History Tobacco [...] ADULT WITH OR WITHOUT CONTRAST PERFORMED BY: [place] SITE: [place] INTERPRETED BY: [facility] [place] TRANSTHORACIC ECHOCARDIOGRAM REPORT REFERRING DIAGNOSIS: Sleep [...] function. Note: This study was performed by [employer] [facility] [place] Jenkins. Only the interpretation was performed at the [facility] [place]. Electronically signed Rakesh Williamson MD Helper Maintenance Cleaning , 06:42 A A felipa/Doc#: [id number] cc: Antoine Fitzpatrick MD Adult Normal Value [...] Blood pressure: 139/86 mmHg Previous study: 01/06/2017 Outside Dealer Sales Representative: KRISTA documented in this encounter Plan of [...] - 02/06/2019 12:00 AM CDT PERFORMED BY: [place] SITE: [place] INTERPRETED BY: [facility] [place] TRANSTHORACIC ECHOCARDIOGRAM REPORT REFERRING DIAGNOSIS: Sleep [...] function. Note: This study was performed by [employer] alessio Welsh. Only theinterpretation was performed at the [facility]. Electronically signed Rakesh Williamson MD Helper Maintenance Cleaning , 06:42 A A felipa/Doc#: [id number] cc: Antoine Fitzpatrick MD Adult Normal Value [...] Blood pressure: 139/86 mmHg Previous study: 01/06/2017 Outside Dealer Sales Representative: KRISTA Antoine Fitzpatrick MD,PHD CAR [place] documented in this encounter Visit Diagnoses Not on filedocumented in this encounter Care Teams Principal Gifts Officer Relationship Specialty Start Date End Date Casey Berry II, DO PCP - General 11/22/06 08/17/19 Stephani Aleamn MD PCP - General Family Medicine 2/7/20 3/8/21 Bianka Loera, OFFICE WORKER [address] [place] [phone] PCP - General Nurse Practitioner Family 09/17/20 712/31 Desiree Patrick MD [address] [place] [address] PCP - General Electrophysiology 02/23/22 03/09/22 Desiree Patrick MD [address] [place] [address] 08/09/17 Farrah Nicole APRN,GEAR GENERATOR SET UP OPERATOR [address] [place] [address] 08/09/17 Bry Echevarria MD [facility] [place] [phone] 08/09/17 Casey Berry II, DO 08/09/17 Shruti Vergara, RN RN Registered Nurse 08/27/20 documented as of this encounter Additional Source Comments PLEASE NOTE: Replies to this message will not be received.[facility] and [facility]
--- OUTSIDE RECORDS SUMMARY | 2024-01-28 14:01 | XMS_ITS ---
Author Organization [employer] Address [address] [place] [address] Care Team Providers Care Wireless Sales Associate Name Role Phone Desriee Patrick MD Unavailable Farrah Nicole APRN,CORE COMPOSER FEEDER Unavailable Bry Echevarria MD Unavailable Jamal [...] 11/09/2018 Muscle tightness 11/09/2018 Bilateral foot-drop 11/09/2018 manager intermediate (current) use of anticoagulants 2018 Encounter for [...] treatments are documented for this patient in [facility]. Treatments may have been administered in another [...]
--- OUTSIDE RECORDS SUMMARY | 2024-01-28 14:01 | XMS_ITS | Encounter Summary ---
Author Organization [employer] Address [address] [place] [address] Care Team Providers Care Prevention Rn Name Role Phone Jamal CARLISLE DO, Robert William Primary Care Provide r Unavailable Desiree Patrick MD Unavailable Farrah Nicole APRN,CLOAK ROOM ATTENDANT Unavailable Bry Echevarria MD Unavailable Jmaal CARLISLE DO, Robert William Unavailable Unav Stephani Diaz MD Primary Care Provider Shruti Vergara RN Unavailable Unavailable Bianka Loera CNP Primary Care Provider Desiree Patrick MD Primary Care P rovider Encounter Details Date Type Department Care Team (Late st Contact Info) Description 06/13/2018 Historical Conversion [facility] [address] [facility] [place] [address] Bry Echevarria MD [address] [place] [address] Social History Tobacco Use Types [...] Comments Blood Pressure 120/78 06/13/2018 12:00 AM MANAGER HIV Pulse - - Temperature - - Respiratory Rate - - Oxygen Saturation - - Inhaled Oxygen Concentration - - Weight 93.8 kg (206 lb 12.7 oz) 018 12:00 AM MANAGER HIV Height - - Body Mass Index 27.29 05/18/2018 8:54 AM MANAGER HIV documented in this encounter Functional Status Functional [...] on filedocumented in this encounter Care Teams Prevention Rn Relationship Specialty Start Date End Date Casey Berry II, DO PCP - General 11/22/06 08/17/19 Stephani Aleman MD PCP - General Family Medicine 08/18/19 09/16/20 Bianka Loera CNP [address] [place] [address] [address] [place] [address] PCP - General Nurse Practitioner Family 09/17/2001/10 Desiree Patrick MD [address] [place] [address] PCP - General Electrophysiology 02/23/22 03/09/22 Desiree Patrick MD [address] [place] [address] 08/09/17 Farrah Nicole APRN,CLOAK ROOM ATTENDANT [address] [place] [address] 08/09/17 Bry Echevarria MD [address] [place] [address] 08/09/17 Casey Berry II, DO 08/09/17 Shruti Vergara RN RN Registered Nurse 08/27/20 documented as of this encounter Additional Source Comments PLEASE NOTE: Replies to this message will not be received.[facility]
--- OUTSIDE RECORDS SUMMARY | 2024-01-28 14:02 | XMS_ITS | Encounter Summary ---
Author Organization [employer] Address [address] [place] [address] Care Team Providers Care Division Plant Engineer Name Role Phone Jamal CARLISLE DO, Robert William Primary Care Provide r Unavailable Desiree Patrick MD Unavailable Farrah Nicole APRN,FREEZER PERSON Unavailable Bry Echevarria MD Unavailable [phone] Jamal CARLISLE DO, Robert William Unavailable Unav Stephani Diaz MD Primary Care Provider [phone] Shruti Vergara RN Unavailable Unavailable Bianka Loera CNP Primary Care Provider Desiree Patrick MD Primary Care P rovider Encounter Details Date Type Department Care Team (Late st Contact Info) Description 10/26/2016 Historical Conversion [facility] Family Medicine [address] [place] [id number] Casey Berry II, DO Social History Tobacco [...] on filedocumented in this encounter Care Teams Division Plant Engineer Relationship Specialty Start Date End Date Casey Berry II, DO PCP - General 11/22/06 08/17/19 Stephani Aleman MD PCP - General Family Medicine 08/18/19 09/16/20 Bianka Loera CNP [address] [place] [address] [address] [place] [phone] PCP - General Nurse Practitioner Family 09/17/2001/10 [place] [address] [place] [address] PCP - General Electrophysiology 02/23/22 03/09/22 Desiree Patrick, MD [address] [place] [address] 08/09/17 Farrah Nicole APRN,[facility] [address] [place] [address] 08/09/17 Bry Echevarria MD [address] [place], [place] [address] [address] 08/09/17 Casey Berry II, DO 08/09/17 Shruti Vergara RN RN Registered Nurse 08/27/20 documented as of this encounter Additional Source Comments PLEASE NOTE: Replies to this message will not be received.[facility]
--- OUTSIDE RECORDS SUMMARY | 2024-01-28 14:02 | XMS_ITS | Encounter Summary ---
Author Organization [employer] Address [address] [place] [address] Care Team Providers Care Software Development Engineer Name Role Phone Jamal CARLISLE DO, Robert William Primary Care Provide r Unavailable Desiree Patrick MD Unavailable Farrah Nicole APRN,CYCLE ANALYST Unavailable Bry Echevarria MD Unavailable [phone] Jamal CARLISLE DO, Robert William Unavailable Unav Stephani Diaz MD Primary Care Provider Shruti Vergara RN Unavailable Unavailable Bianka Loera CNP Primary Care Provider Desiree Patrick MD Primary Care P rovider Encounter Details Date Type Department Care Team (Late st Contact Info) Description 12/31/[address] [facility] Family Medicine [address] [place] [address] Desiree Rubi PAC [address] [place] [address] Social History Tobacco Use Types [...] on filedocumented in this encounter Care Teams Software Development Engineer Relationship Specialty Start Date End Date Casey Berry II, DO PCP - General 11/22/06 08/17/19 Stephani Aleman MD PCP - General Family Medicine 08/18/19 09/16/20 Bianka Loera CNP [address] [facility] 2 [place] [address] PCP - General Nurse Practitioner Family 09/17/2001/10 Desiree Patrick MD [address] [place] [address] PCP - General Electrophysiology 02/23/22 03/09/22 Desiree Patrick MD [address] [place] [address] 08/09/17 Farrah Nicole APRN,CYCLE ANALYST [address] [place] [address] 08/09/17 Bry Echevarria MD [address] [place] [address] [place] [address] 08/09/17 Casey Berry II, DO 08/09/17 Shruti Vergara RN RN Registered Nurse 08/27/20 documented as of this encounter Additional Source Comments PLEASE NOTE: Replies to this message will not be received.[facility]
--- OUTSIDE RECORDS SUMMARY | 2024-01-28 14:02 | XMS_ITS | Encounter Summary ---
Author Organization [employer] Address [address] [place] [address] Care Team Providers Care Construction Manager Name Role Phone Jamal CARLISLE DO, Robert William Primary Care Provide r Unavailable Desiree Patrick MD Unavailable Farrah Nicole APRN,DRUM MAKER Unavailable Bry Echevarria MD Unavailable [phone] Jamal CARLISLE DO, Robert William Unavailable Unav Stephani Diaz MD Primary Care Provider [phone] Shruti Vergara RN Unavailable Unavailable Bianka Loera CNP Primary Care Provider [phone] Desiree Patrick MD Primary Care P rovider Encounter Details Date Type Department Care Team (Late st Contact Info) Description 02/03/2017 Historical Conversion [facility] Family Medicine [address] [place] [id number] Social History Tobacco Use Types Packs/Day Years [...] as of this encounter Procedure Notes * [facility]2018 12:00 AM CDTAssociated Order(s): ANTICOAGULATION Antico[facility] Name: CRISTIAN BLEDSOE : 1945 [...] by:Tiffani Carrero RN Jan 05 2018 12:21PM FACILITY DESIGNER * [facility]2017 12:00 AM CDTAssociated Order(s): ANTICOAGULATION Antico[facility] Name: CRISTIAN BLEDSOE : 1945 [...] by:Tiffani Carrero RN Dec 21 2017 8:31AM FACILITY DESIGNER * [facility] - 11/24/2017 12:00 AM CDTAssociated Order(s): ANTICOAGULATION Anticoagulation [facility] Name: CRISTIAN BLEDSOE : 1945 DOS: [...] by:Tiffani Carrero RN Nov 24 2017 2:41PM FACILITY DESIGNER * [facility] - 10/27/2017 12:00 AM CDTAssociated Order(s): ANTICOAGULATION Anticoagulation [facility] Name: CRISTIAN BLEDSOE : 1945 DOS: 10/27/2017 Cristian is a patient of Dr. Berry. He is here today for anticoagulation assessment and INR check for adiagnosis of atrial fibrillation. Patient states that he has not been feeling well and has been suffering with spinal stenosis. He reports that he has been taking soma for a muscle relaxer. He also reports that his boot maker has changed his medications. Patient stales that he is no longer takingany rate control medications. INR tested today is therapeutic at 2.0 with the recommended range of 2.0 to 3.0. He will continue Coumadin at 5 mg daily with an INR recheck in one month, sooner for anychanges. Patient verbalizes understanding. Electronically signed by:Tiffani Carrero RN Oct 28 2017 7:02AM FACILITY DESIGNER * [facility] - 09/29/2017 12:00 AM CDTAssociated Order(s): ANTICOAGULATION Antico[facility] Name: CRISTIAN BLEDSOE : 1945 DOS: 09/29/2017 Cristian is a patient of Dr. Berry. He is here today for anticoagulation assessment and INR check for adiagnosis of atrial fibrillation. Patient states that he is feeling well. He denies any changes in medication. Patient reports that he continues to experience bradycardia and is working with his boot maker to manage his beta blockers slowly. INR tested today is therapeutic at 2.1 with the recommended range of 2.0 to 3.0. He will continue Coumadin at 5 mg daily with an INR recheck in one month, sooner for any changes. Patient verbalizes understanding. Electronically signed by:Tiffani Carrero RN Sep 29 2017 2:09PM FACILITY DESIGNER * [facility] - 09/15/2017 12:00 AM CSTAssociated Order(s): ANTICOAGULATION [facility] Name: CRISTIAN BLEDSOE : 1945 DOS: 09/15/2017 [...] that Dr. Berry will converse with his boot maker to see if they should change some of his heart medications. Patient will call [facility] nurse with any updates. INR tested today is 1.9 with the recommended range of 2.0 to 3.0. He will adjust Coumadin to 5 mg daily with an INR recheck in two weeks. Patient verbalizes understanding. Electronically signed by:Tiffani Carrero RN Sep 15 2017 11:42AM FACILITY DESIGNER * [facility] - 08/18/2017 12:00 AM CSTAssociated Order(s): ANTICOAGULATION [facility] Name: CRISTIAN BLEDSOE : 1945 [...] by:Tiffani Carrero RN Aug 18 2017 6:00PM FACILITY DESIGNER * [facility] - 07/09/2017 12:00 AM CSTAssociated Order(s): ANTICOAGULATION [facility] Name: CRISTIAN BLEDSOE : 1945 [...] by:Tiffani Carrero RN Jul 09 2017 11:28AM FACILITY DESIGNER * [facility] - 06/16/2017 12:00 AM CSTAssociated Order(s): ANTICOAGULATION [facility] Name: CRISTIAN BLEDSOE : 1945 DOS: 06/16/2017 This is a patient of Dr. Berry. He is here today for an anticoagulation assessment and INR check fora diagnosis of atrial fibrillation. He states that he has been feeling well. Patient denies any recent medication changes. He reports that he needs weekly INR checks per Dr. Patrick at [facility] in preparation for taking dofetilide and [...] by:Tiffani Carrero RN Jun 16 2017 4:18PM FACILITY DESIGNER * [facility] - 06/09/2017 12:00 AM CSTAssociated Order(s): ANTICOAGULATION [facility] Name: CRISTIAN BLEDSOE : 1945 DOS: 06/09/2017 This is a patient of Dr. Berry. He is here today for an anticoagulation assessment and INR check fora diagnosis of atrial fibrillation. He states that he has been feeling well. Patient denies any recent medication changes. He reports that he needs weekly INR checks per Dr. Patrick at [facility] Cardiology in preparation for taking dofetilide and [...] by:Tiffani Carrero RN Jun 09 2017 3:40PM FACILITY DESIGNER * [facility] - 06/02/2017 12:00 AM CSTAssociated Order(s): ANTICOAGULATION [facility] Name: CRISTIAN BLEDSOE : 1945 DOS: 06/02/2017 This is a patient of Dr. Berry. He is here today for an anticoagulation assessment and INR check fora diagnosis of atrial fibrillation. He states that he has been feeling well. Patient denies any recent medication changes. He reports that he will need weekly INR checks per Dr. Patrick at [facility] in preparation for taking dofetilide and a [...] by:Tiffani Carrero RN Jun 02 2017 9:39AM FACILITY DESIGNER AMENDMENTS: 1. current INR and Coumadin dosing. Electronically signed by:Tiffani Carrero RN Jun 09 2017 3:41PM FACILITY DESIGNER * [facility] - 05/26/2017 12:00 AM CSTAssociated Order(s): ANTICOAGULATION [facility] Name: CRISTIAN BLEDSOE : 1945 DOS: 05/26/2017 This is a patient of Dr. Berry. He is here today for an anticoagulation assessment and INR check fora diagnosis of atrial fibrillation. He states that he has been feeling well. Patient denies any recent medication changes. He reports that he will need weekly INR checks per Dr. Patrick at [facility]iology in preparation for taking dofetilide and [...] by:Tiffani Carrero RN May 26 2017 9:42AM FACILITY DESIGNER * [facility] - 05/19/2017 12:00 AM CSTAssociated Order(s): ANTICOAGULATION [facility] Name: CRISTIAN BLEDSOE : 1945 DOS: 05/19/2017 This is a patient of Dr. Berry. He is here today for an anticoagulation assessment and INR check fora diagnosis of atrial fibrillation. He states that he has been feeling well. Patient denies any recent medication changes. He reports that he will need weekly INR checks per Dr. Patrick at [facility] in preparation for taking dofetilide and [...] by:Tiffani Carrero RN May 19 2017 3:13PM FACILITY DESIGNER * [facility] - 05/14/2017 12:00 AM CDTAssociated Order(s): ANTICOAGULATION Email communication received from patient today: ALLAN Vera, RN [facility] (direct phone) [phone] Per our phone conversation of yesterday afternoon, I will be having an initiation of Tikosyn (Dofetilide) at [facility] beginning on June 21. To prepare for this, my boot maker,Dr. Desiree Patrick, has requested INR lab reports demonstrating 4 to 5 weeks of INR levels between 2.5 and 3 prior to the initiation of Tikosyn. Would you please fax my INR lab reports for the month of May to Tamika, Dr. Patrick???s nurse, at (fax) [phone]? The phone number for Dr. Patrick is [phone]. As we discussed, I will come in for INR testing each Wednesday morning at 9:30 AM to meet this requirement. Thank you, Anurag Bledsoe Electronically signed by:Tiffani Carrero RN May 14 2017 9:46AM FACILITY DESIGNER * [facility] - 05/10/2017 12:00 AM CDTAssociated Order(s): ANTICOAGULATION [facility] Name: CRISTIAN BLEDSOE : 1945 DOS: 05/10/2017 This is a patient of Dr. Berry. He is here today for an anticoagulation assessment and INR check fora diagnosis of atrial fibrillation. He states that he has been feeling well. Patient denies any recent medication changes. He reports that he will need weekly INR checks per Dr. Patrick at [facility] in preparation for taking dofetilide and [...] by:Tiffani Carrero RN May 10 2017 3:11PM FACILITY DESIGNER * [facility] - 04/06/2017 12:00 AM CDTAssociated Order(s): ANTICOAGULATION [facility] Name: CRISTIAN BLEDSOE : 1945 [...] by:Tiffani Carrero RN Apr 06 2017 12:37PM FACILITY DESIGNER * [facility] - 03/03/2017 12:00 AM CDTAssociated Order(s): ANTICOAGULATION Antico[facility] Name: CRISTIAN BLEDSOE : 1945 [...] He will have INR checked in the [place] lab prior to his appointment with Dr. Maloney. Patient verbalized understanding. Electronically signed by:Tiffani Carrero RN Mar 03 2017 12:02PM FACILITY DESIGNER * [facility] - 02/03/2017 12:00 AM CDTAssociated Order(s): ANTICOAGULATION [facility] Name: CRISTIAN BLEDSOE : 1945 [...] by:Tiffani Carrero RN Feb 03 2017 10:11AM FACILITY DESIGNER documented in this encounter Plan of [...] Results * ANTICOAGULATION (01/05/2018) Narrative [facility] Note [facility] - 01/05/2018 12:00 AM CDT Anticoagulation [facility] Name: CRISTIAN BLEDSOE : 1945 DOS: [...] by:Tiffani Carrero RN Jan 05 2018 12:21PM FACILITY DESIGNER [facility] OTHER * ANTICOAGULATION (12/21/2017) Narrative Procedure Note [facility] - 12/21/2017 12:00 AM CDT Anticoagulation [facility] Name: CRISTIAN BLEDSOE : 1945 DOS: [...] by:Tiffani Carrero RN Dec 21 2017 8:31AM FACILITY DESIGNER [facility] OTHER * ANTICOAGULATION (11/24/2017) Narrative Procedure Note [facility] - 11/24/2017 12:00 AM CDT Anticoagulation [facility] Name: CRISTIAN BLEDSOE : 1945 DOS: [...] by:Tiffani Carrero RN Nov 24 2017 2:41PM FACILITY DESIGNER [facility] OTHER * ANTICOAGULATION (10/27/2017) Narrative Procedure Note [facility] - 10/27/2017 12:00 AM CDT Anticoagulation [facility] Name: CRISTIAN BLEDSOE : 1945 DOS: 10/27/2017 Cristian is a patient of Dr. Berry. He is here today for anticoagulationassessment and INR check for a diagnosis of atrial fibrillation. Patientstates that he has not been feeling well and has been suffering withspinal stenosis. He reports that he has been taking soma for a musclerelaxer. He also reports that his boot maker has changed hismedications. Patient stales that he is no longer taking any rate controlmedications. INR tested today is therapeutic at 2.0 with the recommendedrange of 2.0 to 3.0. He will continue Coumadin at 5 mg daily with an INRrecheck in one month, sooner for any changes. Patient verbalizesunderstanding. Electronically signed by:Tiffani Carrero RN Oct 28 2017 7:02AM FACILITY DESIGNER [facility] OTHER * ANTICOAGULATION (09/29/2017) Narrative [facility] - 09/29/2017 12:00 AM CDT Anticoagulation [facility] Name: CRISTIAN BLEDSOE : 1945 DOS: 09/29/2017 Cristian is a patient of Dr. Berry. He is here today for anticoagulationassessment and INR check for a diagnosis of atrial fibrillation. Patientstates that he is feeling well. He denies any changes in medication.Patient reports that he continues to experience bradycardia and is workingwith his boot maker to manage his beta blockers slowly. INR testedtoday is therapeutic at 2.1 with the recommended range of 2.0 to 3.0. Hewill continue Coumadin at 5 mg daily with an INR recheck in one month,sooner for any changes. Patient verbalizes understanding. Electronically signed by:Tiffani Carrero RN Sep 29 2017 2:09PM FACILITY DESIGNER [facility] OTHER * ANTICOAGULATION (09/15/2017) Narrative Procedure Note [facility] - 09/15/2017 12:00 AM CST Anticoagulation [facility] Name: CRISTIAN BLEDSOE : 1945 DOS: 09/15/2017 [...] statesthat Dr. Berry will converse with his boot maker to see if they shouldchange some of his heart medications. Patient will call [facility] nurse with anyupdates. INR tested today is 1.9 with the recommended range of 2.0 to 3.0.He will adjust Coumadin to 5 mg daily with an INR recheck in two weeks.Patient verbalizes understanding. Electronically signed by:Tiffani Carrero RN Sep 15 2017 11:42AM FACILITY DESIGNER [facility] OTHER * ANTICOAGULATION (08/18/2017) Narrative Procedure Note [facility] - 08/18/2017 12:00 AM CST Anticoagulation [facility] Name: CRISTIAN BLEDSOE : 1945 DOS: [...] by:Tiffani Carrero RN Aug 18 2017 6:00PM FACILITY DESIGNER [facility] OTHER * ANTICOAGULATION (07/09/2017) Narrative Procedure Note [facility] - 07/09/2017 12:00 AM CST Anticoagulation [facility] Name: CRISTIAN BLEDSOE : 1945 DOS: [...] by:Tiffani Carrero RN Jul 09 2017 11:28AM FACILITY DESIGNER [facility] OTHER * ANTICOAGULATION (06/16/2017) Narrative Procedure Note [facility] - 06/16/2017 12:00 AM CST Anticoagulation [facility] Name: CRISTIAN BLEDSOE : 1945 DOS: 06/16/2017 This is a patient of Dr. Berry. He is here today for an anticoagulationassessment and INR check for a diagnosis of atrial fibrillation. He statesthat he has been feeling well. Patient denies any recent medicationchanges. He reports that he needs weekly INR checks per Dr. Patrick [facility] Cardiology in preparation for taking dofetilide and [...] by:Tiffani Carrero RN Jun 16 2017 4:18PM FACILITY DESIGNER [facility] OTHER * ANTICOAGULATION (06/09/2017) Narrative Procedure [facility] - 06/[facility]/2017 12:00 AM CST Anticoagulation [facility] Name: CRISTIAN BLEDSOE : 1945 DOS: 06/09/2017 This is a patient of Dr. Berry. He is here today for an anticoagulationassessment and INR check for a diagnosis of atrial fibrillation. He statesthat he has been feeling well. Patient denies any recent medicationchanges. He reports that he needs weekly INR checks per Dr. Patrick [facility] Cardiology in preparation for taking dofetilide and [...] by:Tiffani Carrero RN Jun 09 2017 3:40PM FACILITY DESIGNER [facility] OTHER * ANTICOAGULATION (06/02/2017) Narrative Procedure Note [facility] - 06/02/2017 12:00 AM CST Anticoagulation [facility] Name: CRISTIAN BLEDSOE : 1945 DOS: 06/02/2017 This is a patient of Dr. Berry. He is here today for an anticoagulationassessment and INR check for a diagnosis of atrial fibrillation. He statesthat he has been feeling well. Patient denies any recent medicationchanges. He reports that he will need weekly INR checks per Dr. Valencia [facility] Card[facility] in preparation for taking dofetilide and [...] by:Tiffani Carrero RN Jun 02 2017 9:39AM FACILITY DESIGNER AMENDMENTS: 1. current INR and Coumadin dosing. Electronically signed by:Tiffani Carrero RN Jun 09 2017 3:41PM [facility] * [facility] (05/26/2017) Narrative [facility] - 05/26/2017 12:00 AM CST Anticoagulation [facility] Name: CRISTIAN BLEDSOE : 1945 DOS: 05/26/2017 This is a patient of Dr. Berry. He is here today for an anticoagulationassessment and INR check for a diagnosis of atrial fibrillation. He statesthat he has been feeling well. Patient denies any recent medicationchanges. He reports that he will need weekly INR checks per Dr. Valencia [facility] in preparation for taking dofetilide and [...] a note ofadjustment made today. Electronically signed by:Tiffain Carrero RN May 26 2017 9:42AM [facility] * [facility] (05/19/2017) [facility]ative [facility] 05/19/2017 12:00 AM CST Anticoagulation [facility] Name: CRISTIAN BLEDSOE : 1945 DOS: 05/19/2017 This is a patient of Dr. Berry. He is here today for an anticoagulationassessment and INR check for a diagnosis of atrial fibrillation. He statesthat he has been feeling well. Patient denies any recent medicationchanges. He reports that he will need weekly INR checks per Dr. Valencia [facility] in preparation for taking dofetilide and [...] by:Tiffani Carrero RN May 19 2017 3:13PM FACILITY DESIGNER Genericprovider [facility] OTHER * ANTICOAGULATION (05/14/2017) Narrative Procedure Note [facility] - 05/14/2017 12:00 AM CDT Email communication received from patient today: ALLAN Vera, RN [facility] (direct phone) [phone] Per our phone conversation of yesterday afternoon, I will be having aninitiation of Tikosyn (Dofetilide) at [facility] beginning June 21. To prepare for this, my boot maker, Dr. Serra, has requested INR lab reports demonstrating 4 to 5 weeks ofINR levels between 2.5 and 3 prior to the initiation of Tikosyn. Would you please fax my INR lab reports for the month of May Oneil, Dr. Patrick? s nurse, at (fax) [phone]? The phone numberfor Dr. Patrick is [phone]. As we discussed, I will come in for INR testing each Wednesday morning at9:30 AM to meet this requirement. Thank you, Anurag Premapura Electronically signed by:Tiffani Carrero RN May 14 2017 9:46AM FACILITY DESIGNER [facility] OTHER * ANTICOAGULATION (05/10/2017) Narrative Procedure Note [facility] - 05/10/2017 12:00 AM CDT Anticoagulation [facility] Name: CRISTIAN BLEDSOE : 1945 DOS: 05/10/2017 This is a patient of Dr. Berry. He is here today for an anticoagulationassessment and INR check for a diagnosis of atrial fibrillation. He statesthat he has been feeling well. Patient denies any recent medicationchanges. He reports that he will need weekly INR checks per Dr. Valencia [facility] Cardiology in preparation for taking dofetilide and [...] by:Tiffani Carrero RN May 10 2017 3:11PM FACILITY DESIGNER [facility] OTHER * ANTICOAGULATION (04/06/2017) Narrative Procedure Note [facility] - 04/06/2017 12:00 AM CDT Anticoagulation [facility] Name: CRISTIAN BLEDSOE : 1945 DOS: [...] by:Tiffani Carrero RN Apr 06 2017 12:37PM FACILITY DESIGNER [facility] OTHER * ANTICOAGULATION (03/03/2017) Narrative Procedure Note [facility] - 03/03/2017 12:00 AM CDT Anticoagulation [facility] Name: CRISTIAN BLEDSOE : 1945 DOS: [...] changes. He willhave INR checked in the [place] lab prior to his appointment with . Patient verbalized understanding. Electronically signed by:Tiffani Carrero RN Mar 03 2017 12:02PM FACILITY DESIGNER [facility] OTHER * ANTICOAGULATION (02/03/2017) Narrative Procedure Note [facility] - 02/03/2017 12:00 AM CDT Anticoagulation [facility] Name: CRISTIAN BLEDSOE : 1945 DOS: [...] by:Tiffani Carrero RN Feb 03 2017 10:11AM FACILITY DESIGNER Genericprovider [facility] OTHER documented in this encounter Visit Diagnoses Not on filedocumented in this encounter Care Teams Construction Manager Relationship Specialty Start Date End Date Casey Berry II, DO PCP - General 11/22/06 08/17/19 Stephani Aleman MD PCP - General Family Medicine 08/18/19 09/16/20 Bianka Loera CNP [address] [place] [address] [address] [place] [address] PCP - General Nurse Practitioner Family 09/17/2001/10 Desiree Patrick MD [address] [place] [address] PCP - General Electrophysiology 02/23/22 03/09/22 Desiree Patrick MD [address] [place] [address] 08/09/17 Farrah Nicole APRN,DRUM MAKER [address] [phone] 08/09/17 Bry Echevarria MD [address] [place] [phone] 08/09/17 Casey Berry II, DO 08/09/17 Shruti Vergara RN RN Registered Nurse 08/27/20 documented as of this encounter Additional Source Comments PLEASE NOTE: Replies to this message will not be received.[facility]
--- OUTSIDE RECORDS SUMMARY | 2024-01-28 14:02 | XMS_ITS | Encounter Summary ---
Author Organization [employer] Address [address] [place] [address] Care Team Providers Care Architectural Associate Name Role Phone Jamal CARLISLE DO, Robert William Primary Care Provide r Unavailable Desiree Patrick MD Unavailable Farrah Nicole APRN,EMERGENCY WORKER Unavailable Bry Echevarria MD Unavailable [phone] Jamal CARLISLE DO, Robert William Unavailable Unav Stephani Diaz MD Primary Care Provider Shruti Vergara RN Unavailable Unavailable Bianka Loera CNP Primary Care Provider [phone] Desiree Patrick MD Primary Care P rovider Encounter Details Date Type Department Care Team (Late st Contact Info) Description 10/17/2016 Historical Conversion [facility] Family Medicine [address] [place] [address] Social History Tobacco Use Types Packs/Day Years [...] do you have serious difficulty hearing? Yes-slightly ABSENTEE-SHAWNEE 10/17/2016 Are you blind or do you [...] on filedocumented in this encounter Care Teams Architectural Associate Relationship Specialty Start Date End Date Casey Berry II, DO PCP - General 11/22/06 08/17/19 Stephani Aleman MD PCP - General Family Medicine 08/18/19 09/16/20 Bianka Loera CNP [address] [place] [id number] PCP - General Nurse Practitioner Family 09/17/2001/10 [place] [address] [place] [phone] PCP - General Electrophysiology 02/23/22 03/09/22 Desiree Patrick MD [address] [place] [address] 08/09/17 Farrah Nicole APRN,[facility] [address] [place] [address] 08/09/17 Bry Echevarria MD [address] [place] [address] [place] [address] 08/09/17 Casey Berry II, DO 08/09/17 Shruti Vergara RN RN Registered Nurse 08/27/20 documented as of this encounter Additional Source Comments PLEASE NOTE: Replies to this message will not be received.[facility] and [facility]
--- OUTSIDE RECORDS SUMMARY | 2024-01-28 14:02 | XMS_ITS | Encounter Summary ---
Author Organization [employer] Address [address] [place] [address] Care Team Providers Care Stone Trimmer Name Role Phone Jamal CARLISLE DO, Robert William Primary Care Provide r Unavailable Desiree Patrick MD Unavailable Farrah Nicole APRN,CAN FILLING MACHINE OPERATOR Unavailable Bry Echevarria MD Unavailable Jamal CARLISLE DO, Robert William Unavailable Unav Stephani Diaz MD Primary Care Provider Shruti Vergara RN Unavailable Unavailable Bianka Loera CNP Primary Care Provider [phone] Desiree Patrick MD Primary Care P rovider Encounter Details Date Type Department Care Team (Late st Contact Info) Description 04/06/[address] [facility] Family Medicine [address] [place] [address] Casey Berry II, DO Social History Tobacco [...] on filedocumented in this encounter Care Teams Stone Trimmer Relationship Specialty Start Date End Date Casey Berry II, DO PCP - General 11/22/06 08/17/19 Stephani Aleman MD PCP - General Family Medicine 08/18/19 09/16/20 Bianka Loera CNP [address] [facility] 2 [place] [phone] PCP - General Nurse Practitioner Family 09/17/2001/10 [place] [address] [place] [phone] PCP - General Electrophysiology 02/23/22 03/09/22 Desiree Patrick MD [address] [place] [address] 08/09/17 Farrah Nicole APRN,CAN FILLING MACHINE OPERATOR [address] [place] [address] 08/09/17 Bry Echevarria MD [address] [place] [address] 08/09/17 Casey Berry II, DO 08/09/17 Shruti Vergara RN RN Registered Nurse 08/27/20 documented as of this encounter Additional Source Comments PLEASE NOTE: Replies to this message will not be received.[facility] and [facility]
--- OUTSIDE RECORDS SUMMARY | 2024-01-28 14:02 | XMS_ITS | Encounter Summary ---
Author Organization [employer] Address [address] [place] [address] Care Team Providers Care Cook Pickled Meat Name Role Phone Jamal CARLISLE DO, Robert William Primary Care Provide r Unavailable Desiree Patrick MD Unavailable Farrah Nicole APRN,POST CLOSER Unavailable Bry Echevarria MD Unavailable Jamal CARLISLE DO, Robert William Unavailable Unav Stephani Diaz MD Primary Care Provider Shruti Vergara RN Unavailable Unavailable Bianka Loera CNP Primary Care Provider Desiree Patrick MD Primary Care P rovider Encounter Details Date Type Department Care Team (Late st Contact Info) Description 12/01/2016 Historical Conversion [facility] Family Medicine [address] [place] [address] Moon Maloney MD Social History Tobacco Use [...] on filedocumented in this encounter Care Teams Cook Pickled Meat Relationship Specialty Start Date End Date Casey Berry II, DO PCP - General 11/22/06 08/17/19 Stephani Aleman MD PCP - General Family Medicine 08/18/19 09/16/20 Bianka Loera CNP [address] [place] [address] 2 [place] [phone] PCP - General Nurse Practitioner Family 09/17/2001/10 [place] [address] [place] [phone] PCP - General Electrophysiology 02/23/22 03/09/22 Desiree Patrick MD [address] [place] [address] 08/09/17 Farrah Nicole APRN,POST CLOSER [address] [place] [address] 08/09/17 Bry Echevarria MD [address] [place] [address] 08/09/17 Casey Berry II, DO 08/09/17 Shruti Vergara RN RN Registered Nurse 08/27/20 documented as of this encounter Additional Source Comments PLEASE NOTE: Replies to this message will not be received.[facility] and [facility]
--- OUTSIDE RECORDS SUMMARY | 2024-01-28 14:02 | XMS_ITS | Encounter Summary ---
Author Organization [employer] Address [address] [place] [address] Care Team Providers Care Market Editor Name Role Phone Jamal CARLISLE DO, Robert William Primary Care Provide r Unavailable Desiree Patrick MD Unavailable Farrah Nicole APRN,SHIP CONSTRUCTION TEACHER Unavailable Bry Echevarria MD Unavailable Jamal CARLISLE DO, Robert William Unavailable Unav Stephani Diaz MD Primary Care Provider Shruti Vergara RN Unavailable Unavailable Bianka Loera CNP Primary Care Provider Desiree Patrick MD Primary Care P rovider Encounter Details Date Type Department Care Team (Late st Contact Info) Description 11/06/2016 Historical Conversion [facility] Family Medicine [address] [place] [address] Moon Maloney MD Social History Tobacco Use [...] on filedocumented in this encounter Care Teams Market Editor Relationship Specialty Start Date End Date Casey Berry II, DO PCP - General 11/22/06 08/17/19 Stpehani Aleman MD PCP - General Family Medicine 08/18/19 09/16/20 Bianka Loera CNP [address] [place] [address] 2 [place] [phone] PCP - General Nurse Practitioner Family 09/17/2001/10 Desiree Patrick MD [address] [place] [address] PCP - General Electrophysiology 02/23/22 03/09/22 Desiree Patrick MD [address] [place] [address] 08/09/17 Farrah Nicole APRN,SHIP CONSTRUCTION TEACHER [address] [place] [address] 08/09/17 Bry Echevarria MD [address] [place] [address] 08/09/17 Casey Berry II, DO 08/09/17 Shruti Vergara RN RN Registered Nurse 08/27/20 documented as of this encounter Additional Source Comments PLEASE NOTE: Replies to this message will not be received.[facility] and [facility]
--- OUTSIDE RECORDS SUMMARY | 2024-01-28 14:02 | XMS_ITS | Encounter Summary ---
Author Organization [facility] [employer] [facility] Address [address] [place] [address] Care Team Providers Care Head Packager Name Role Phone Jamal CARLISLE DO, Robert William Primary Care Provide r Unavailable Desiree Patrick MD Unavailable Farrah Nicole APRN,SENIOR SQL SERVER DEVELOPER Unavailable Bry Echevarria MD Unavailable [phone] Jamal CARLISLE DO, Robert William Unavailable Unav Stephani Diaz MD Primary Care Provider [phone] Shruti Vergara RN Unavailable Unavailable Bianka Loera CNP Primary Care Provider [phone] Desiree Patrick MD Primary Care P rovider Encounter Details Date Type Department Care Team (Late st Contact Info) Description 12/31/2016 HIM Director Of Quality Control [facility] Heart & Vascular [address] [address] Gil Solares MD Social History Tobacco Use [...] ADULT WITH OR WITHOUT CONTRAST PERFORMED BY: [employer] [place], [place] SITE: [place], [place] INTERPRETED BY: [facility] [place], [place] TRANSTHORACIC ECHOCARDIOGRAM REPORT REFERRING DIAGNOSIS: Paroxysmal [...] fibrillation. Note: This study was performed by [employer] for [place]. Only the interpretation wasperformed at the [facility] [place]. Electronically signed Gil Solares MD, [facility] Cephalometric Analyst , 04:45 P A kmg/Doc#: [id number] cc: Adult Normal Value Adult Patient Values [...] Blood pressure: 116/81 mmHg Previous study: 11/19/15 Forms Analysis Manager: [place] documented in this encounter Plan of Treatment [...] - 12/31/2016 12:00 AM CDT PERFORMED BY: [employer] [place], [place] SITE: [place], [place] INTERPRETED BY: [facility] [place], [place] TRANSTHORACIC ECHOCARDIOGRAM REPORT REFERRING DIAGNOSIS: Paroxysmal [...] fibrillation. Note: This study was performed by [facility] for [place].Only the interpretation was performed at the [facility]. Electronically signed Gil Solares MD, [facility] Cephalometric Analyst , 04:45 P A taylag/Doc#: [id number] cc: Adult Normal Value Adult Patient Values [...] dt 254 ms E' sept 6.04 cm/sec [id number] ms E/e' 10 E' lat 9.65 cm/sec IMPRESSION: Patient height: 185 cm Patient weight: 94 kg Blood pressure: 116/81 mmHg Previous study: 11/19/15 Forms Analysis Manager: HIEU Desiree NICHOLS documented in this encounter Visit Diagnoses Not on filedocumented in this encounter Care Teams Head Packager Relationship Specialty Start Date End Date Casey Berry II, DO PCP - General 11/22/06 08/17/19 Stephani Aleman MD PCP - General Family Medicine 08/18/19 09/16/20 Bianka Loera, LAVATORY ATTENDANT [address] [place] [phone] PCP - General Nurse Practitioner Family 09/17/20 712/31 Desiree Patrick MD [address] [place] [address] PCP - General Electrophysiology 02/23/22 03/09/22 Desiree Patrick MD [address] [place] [address] 08/09/17 Farrah Nicole APRN,SENIOR SQL SERVER DEVELOPER [address] [place] [address] 08/09/17 Bry Echevarria MD [address] [place] [address] 08/09/17 Casey Berry II, DO 08/09/17 Shruti Vergara RN RN Registered Nurse 08/27/20 documented as of this encounter Additional Source Comments PLEASE NOTE: Replies to this message will not be received.[facility] and [facility]
--- OUTSIDE RECORDS SUMMARY | 2024-01-28 14:02 | XMS_ITS | Encounter Summary ---
Author Organization [employer] Address [address] [place] [address] Care Team Providers Care Professor Of Forestry Name Role Phone Jamal CARLISLE DO, Robert William Primary Care Provide r Unavailable Desiree Patrick MD Unavailable Farrah Nicole APRN,CHEFS Unavailable Bry Echevarria MD Unavailable Jamal CARLISLE DO, Robert William Unavailable Unav Stephani Diaz MD Primary Care Provider Shruti Vergara RN Unavailable Unavailable Bianka Loera CNP Primary Care Provider [phone] Desiree Patrick MD Primary Care P rovider Encounter Details Date Type Department Care Team (Late st Contact Info) Description 08/31/2017 Historical Conversion [facility] Family Medicine [address] [facility] [place] [address] Desiree Rubi PAC [address] [place] [address] Social History Tobacco Use Types [...] Comments Blood Pressure 112/60 08/31/2017 12:[address] RECORDING MONITOR Pulse - - Temperature - - Respiratory Rate - - Oxygen Saturation - - Inhaled Oxygen Concentration - - Weight 95.9 kg (211 lb 6.7 oz) 08/31/2017 12:[address] RECORDING MONITOR Height - - Body Mass Index 27.89 07/27/2017 2:[address] RECORDING MONITOR documented in this encounter Functional Status Functional [...] on filedocumented in this encounter Care Teams Professor Of Forestry Relationship Specialty Start Date End Date Casey Berry II, DO PCP - General 11/22/06 08/17/19 Stephani Aleman MD PCP - General Family Medicine 08/18/19 09/16/20 Bianka Loera CNP [address] [place] [address] 2 [place] [address] PCP - General Nurse Practitioner Family 09/17/20 712/31 Desiree Patrick MD [address] [place] [address] PCP - General Electrophysiology 02/23/22 03/09/22 Desiree Patrick MD [address] [place] [address] 08/09/17 Farrah Nicole APRN,CHEFS [address] [facility] [place] [address] 08/09/17 Bry Echevarria MD [address] [place] [address] [place] [address] 08/09/17 Casey Berry II, DO 08/09/17 Shruti Vergara RN RN Registered Nurse 08/27/20 documented as of this encounter Additional Source Comments PLEASE NOTE: Replies to this message will not be received.[facility] and [facility]
--- OUTSIDE RECORDS SUMMARY | 2024-01-28 14:02 | XMS_ITS | Encounter Summary ---
Author Organization [employer] Address [address] [place] [address] Care Team Providers Care Control Center Operator Name Role Phone Jamal CARLISLE DO, Robert William Primary Care Provide r Unavailable Desiree Patrick MD Unavailable Farrah Nicole APRN,ESTIMATOR PRINTING Unavailable Bry Echevarria MD Unavailable Jamal CARLISLE DO, Robert William Unavailable Unav Stephani Diaz MD Primary Care Provider Shruti Vergara RN Unavailable Unavailable Bianka Loera CNP Primary Care Provider Desiree Patrick MD Primary Care P rovider Encounter Details Date Type Department Care Team (Late st Contact Info) Description 07/01/2017 Historical Conversion [facility] Family Medicine [address] [place] [address] Social History Tobacco Use Types Packs/Day Years [...] of this encounter Procedure Notes * [facility] DON[facility] - 06/14/2018 12:00 AM CSTAssociated Order(s): ANTICOAGULATION [...] by:Tiffani Carrero RN Jun 14 2018 7:43PM LAB COURIER * [facility] MICHELLEPROVIDER - 05/17/2018 12:00 AM CSTAssociated Order(s): ANTICOAGULATION Anticoagulation Clinic [facility] Name: CRISTIAN BLEDSOE : 1945 DOS: [...] by:Tiffani Carrero RN May 17 2018 11:41AM LAB COURIER * [facility] 04/26/2018 12:00 AM CDTAssociated Order(s): ANTICOAGULATION Antico[facility] Clinic [facility] Name: CRISTIAN BLEDSOE : 1945 DOS: [...] by:Tiffani Carrero RN Apr 26 2018 4:12PM LAB COURIER * [facility] 03/22/2018 12:00 AM CDTAssociated Order(s): ANTICOAGULATION Anticoagulation Clinic [facility] Name: CRISTIAN BLEDSOE : 1945 DOS: [...] by:Tiffani Carrero RN Mar 22 2018 3:06PM LAB COURIER * [facility] DAYANNABRANDO - 02/23/2018 12:00 AM CDTAssociated Order(s): ANTICOAGULATION Anticoagulation [facility] Name: CRISTIAN BLEDSOE : 1945 DOS: [...] by:Tiffani Carrero RN Feb 23 2018 10:29AM LAB COURIER * [facility] DONTAELUB[facility] - 02/09/2018 12:00 AM CDTAssociated Order(s): ANTICOAGULATION Anticoagulation [facility] Name: CRISTIAN BLEDSOE : 1945 DOS: 02/09/2018 Cristian is a patient of Dr. Berry. He is here today for anticoagulation assessment and INR check for adiagnosis of atrial fibrillation. Patient states that he has been feeling well. He denies any medication changes since his last INR check. Patient reports that he recently took a trip to [place] and forgot to take his Coumadin during the weekend. INR tested today is 1.8 with the recommended range of 2.0 to 3.0. Patient will continue Coumadin at 7.5 mg on Wednesdays and 5 mg all other days withan INR recheck in two weeks. Patient verbalizes understanding. Electronically signed by:Tiffani Carrero RN Feb 09 2018 4:06PM LAB COURIER * [facility] GENERIC[facility]OVID[facility] - 07/01/2017 12:00 AM CSTAssociated Order(s): ANTICOAGULATION Name: CRISTIAN BLEDSOE : 1945 DOS: 07/01/2017 Cristian is a patient of Dr. Berry. He is here today for anticoagulation assessment and INR check for adiagnosis of atrial fibrillation. Patient was seen in clinic by Dr. Echevarria today post cardioversion. Patient had a cardioversion on 06/24 at [facility] and he reports it went well. He [...] by:Theresa Crowder RN Jul 01 2017 5:02PM LAB COURIER documented in this encounter Plan of Treatment Not on file documented as of this encounter Procedures Procedure Name Priority Date/Time Associated Diagnosis Comments ANTICOAGULATION 06/14/2018 ANTICOAGULATION 05/17/2018 ANTICOAGULATION 04/26/2018 ANTICOAGULATION 03/22/2018 ANTICOAGULATION 02/23/2018 ANTICOAGULATION 02/09/2018 ANTICOAGULATION 07/01/2017 documented in this encounter Results * ANTICOAGULATION (06/14/2018) Narrative Procedure Note [facility] MICHELLEPROVIBRANDO - 06/14/2018 12:00 AM CST Name: [...] by:Tiffani Carrero RN Jun 14 2018 7:43PM LAB COURIER [facility] OTHER * ANTICOAGULATION (05/17/2018) Narrative Procedure Note [facility] - 05/17/2018 12:00 AM CST Anticoagulation [facility] Name: CRISTIAN BLEDSOE : 1945 DOS: [...] by:Tiffani Carrero RN May 17 2018 11:41AM LAB COURIER [facility] OTHER * ANTICOAGULATION (04/26/2018) Narrative Procedure Note [facility] - 04/26/2018 12:00 AM CDT Anticoagulation [facility] Name: CRISTIAN BLEDSOE : 1945 DOS: [...] by:Tiffani Carrero RN Apr 26 2018 4:12PM LAB COURIER [facility] OTHER * ANTICOAGULATION (03/22/2018) Narrative Procedure Note [facility] - 03/22/2018 12:00 AM CDT Anticoagulation [facility] Name: CRISTIAN BLEDSOE : 1945 DOS: [...] by:Tiffani Carrero RN Mar 22 2018 3:06PM LAB COURIER [facility] OTHER * ANTICOAGULATION (02/23/2018) Narrative Procedure Note [facility] - 02/23/2018 12:00 AM CDT Anticoagulation [facility] Name: CRISTIAN BLEDSOE : 1945 DOS: [...] by:Tiffani Carrero RN Feb 23 2018 10:29AM LAB COURIER [facility] OTHER * ANTICOAGULATION (02/09/2018) Narrative Procedure Note [facility] - 02/09/2018 12:00 AM CDT Anticoagulation Clinic [facility] Name: CRISTIAN BLEDSOE : 1945 DOS: [...] by:Tiffani Carrero RN Feb 09 2018 4:06PM LAB COURIER [facility] OTHER * ANTICOAGULATION (07/01/2017) Narrative Procedure Note [facility] - 07/01/2017 12:00 AM CST Name: CRISTIAN BLEDSOE : 1945 DOS: 07/01/2017 Cristian is a patient of Dr. Berry. He is here today for anticoagulationassessment and INR check for a diagnosis of atrial fibrillation. Patientwas seen in clinic by Dr. Echevarria today post cardioversion. Patient had acardioversion on 06/24 at [facility] and he reports it went well. Hestates [...] by:Theresa Crowder RN Jul 01 2017 5:02PM LAB COURIER [facility]provider [facility] OTHER documented in this encounter Visit Diagnoses Not on filedocumented in this encounter Care Teams Control Center Operator Relationship Specialty Start Date End Date Casey Berry II, DO PCP - General 11/22/06 08/17/19 Stephani Aleman MD PCP - General Family Medicine 08/18/19 09/16/20 Bianka Loera AIRLINE MECHANIC [address] [facility] 2 [place] [address] PCP - General Nurse Practitioner Family 09/17/2001/10 Desiree Patrick MD [address] [place] [address] PCP - General Electrophysiology 02/23/22 03/09/22 [place] [address] [place] [address] 08/09/17 Farrah Nicole APRN,ALEX [address] [place] [address] 08/09/17 Bry Echevarria MD [address] [place] [address] 08/09/17 Casey Berry II, DO 08/09/17 Shruti Vergara RN RN Registered Nurse 08/27/20 documented as of this encounter Additional Source Comments PLEASE NOTE: Replies to this message will not be received.[facility] and [facility]
--- OUTSIDE RECORDS SUMMARY | 2024-01-28 14:02 | XMS_ITS | Encounter Summary ---
Author Organization [employer] Address [address] [place] [address] Care Team Providers Care Laundry Operator Finishing Name Role Phone Jamal CARLISLE DO, Robert William Primary Care Provide r Unavailable Desiree Patrick MD Unavailable Farrah Nicole APRN,FLEXIBLE BABYSITTER Unavailable Bry Echevarria MD Unavailable [phone] Jamal CARLISLE DO, Robert William Unavailable Unav Stephani Diaz MD Primary Care Provider Shruti Vergara RN Unavailable Unavailable Bianka Loera CNP Primary Care Provider [phone] Desiree Patrick MD Primary Care P rovider Encounter Details Date Type Department Care Team (Late st Contact Info) Description 07/01/2017 Historical Conversion [facility] [address] [facility] [place] [address] Bry Echevarria MD [address] [place] [address] Social History Tobacco Use Types [...] Comments Blood Pressure 136/70 07/01/2017 12:00 AM COLLECTION SYSTEMS TECHNICIAN Pulse - - Temperature - - Respiratory Rate - - Oxygen Saturation - - Inhaled Oxygen Concentration - - Weight 97.6 kg (215 lb 2.7 oz) 07/01/2017 12:00 AM COLLECTION SYSTEMS TECHNICIAN Height - - Body Mass Index 28.39 06/21/2017 2:27 PM COLLECTION SYSTEMS TECHNICIAN documented in this encounter Functional Status Functional [...] on filedocumented in this encounter Care Teams Laundry Operator Finishing Relationship Specialty Start Date End Date Casey Berry II, DO PCP - General 11/22/06 08/17/19 Stephani Aleman MD PCP - General Family Medicine 08/18/19 09/16/20 Bianka Loera CNP [address] [facility] 2 [place] [address] PCP - General Nurse Practitioner Family 09/17/2001/10 Desiree Patrick MD [address] [place] [address] PCP - General Electrophysiology 02/23/22 03/09/22 Desiree Patrick MD [address] [place] [address] 08/09/17 Farrah Nicole APRN,FLEXIBLE BABYSITTER [address] [place] [address] 08/09/17 Bry Echevarria MD [address] [place] [address] [place] [address] 08/09/17 Casey Berry II, DO 08/09/17 Shruti Vergara RN RN Registered Nurse 08/27/20 documented as of this encounter Additional Source Comments PLEASE NOTE: Replies to this message will not be received.[facility] and [facility]
--- OUTSIDE RECORDS SUMMARY | 2024-01-28 14:02 | XMS_ITS | Encounter Summary ---
Author Organization [employer] Address [address] [place] [address] Care Team Providers Care Errand Runner Name Role Phone Jamal CARLSILE DO, Robert William Primary Care Provide r Unavailable Desiree Patrick MD Unavailable Farrah Nicole APRN,RESIDENTIAL DRIVER Unavailable [phone] Bry Echevarria MD Unavailable Jamal CARLISLE DO, Robert William Unavailable Unav Stephani Diaz MD Primary Care Provider Shruti Vergara RN Unavailable Unavailable Bianka Loera CNP Primary Care Provider [phone] Desiree Patrick MD Primary Care P rovider Encounter Details Date Type Department Care Team (Late st Contact Info) Description 06/25/2017 Historical Conversion [facility] Family Medicine [address] [place] [id number] Social History Tobacco Use Types Packs/Day Years [...] as of this encounter Progress Notes * [facility], GENERICPROVIDER - 06/25/2017 12:00 AM CST Medication Reconciliation Post Discharge Name: CRISTIAN BLEDSOE Date of Discharge: 06/24/2017 Current Meds 1. Digoxin 125 MCG Oral Tablet; Therapy: (Recorded:[id number]) to Recorded 2. DilTIAZem HCl - 60 MG Oral Tablet; TAKE 1 TABLET BY MOUTH DAILY; Therapy: 14Apr2017 to (Evaluate:08Flm2217) Requested for: [id number] Recorded 3. Dofetilide 250 MCG Oral Capsule; TAKE 1 CAPSULE TWICE DAILY; Therapy: (Recorded:[id number]) to Recorded 4. Metoclopramide HCl - 5 MG Oral Tablet (Reglan); TAKE 1 TABLET BY MOUTH THREE TIMES DAILY WITH MEALS; Therapy: 10Sep2014 to (Evaluate:17Sep2017) Requested for: 20May2017; Last Rx:20May2017 Ordered 5. Metoprolol Tartrate 50 MG Oral Tablet; TAKE 1 TABLET TWICE DAILY; Therapy: (Recorded:[id number]) to Recorded 6. Tylenol Extra Strength 500 MG Oral Tablet; Therapy: (Recorded:50Vvw7377) to Recorded 7. Warfarin Sodium 5 MG Oral Tablet (Coumadin); Take as directed by ACC; Therapy: 76Ohk9018 to (Evaluate:28May2018) Requested for: 02Jun2017 Recorded Medication [...] INR checked next week. Reviewed 24 hour job cost estimator line, when to call PCP, and when to call 911. Patient voiced understanding. STACY Rasheed Follow-Up Recommendations Follow up with the following provider(s): cardiology 1 mo I reviewed with the patient the 24 hour nurse line and ecouraged them to call if they had any questions or concerns. Patient voiced understanding. Signatures Electronically signed by : Emma Estrella RN; Jun 25 2017 11:25AM HISTOLOGY ASSISTANT documented in this encounter Plan of Treatment Not on file documented as of this encounter Visit Diagnoses Not on filedocumented in this encounter Care Teams Errand Runner Relationship Specialty Start Date End Date Casey Berry II, DO PCP - General 11/22/06 08/17/19 Stephani Aleman MD PCP - General Family Medicine 08/18/19 09/16/20 Bianka Loera CNP [address] [facility] [address] [facility] 2 [place] [address] PCP - General Nurse Practitioner Family 09/17/20 7/12/31 Desiree Patrick MD [address] [place] [place] [address] PCP - General Electrophysiology 02/23/22 03/09/22 Desiree Patrick MD [address] [place] [place] [address] 08/09/17 Farrah Nicole APRN,RESIDENTIAL DRIVER [address] [place] [place] [address] 08/09/17 Bry Echevarria MD [facility] [place] [address] 08/09/17 Casey Berry II, DO 08/09/17 Shruti Vergara RN RN Registered Nurse 08/27/20 documented as of this encounter Additional Source Comments PLEASE NOTE: Replies to this message will not be received.[facility] and [facility]
--- OUTSIDE RECORDS SUMMARY | 2024-01-28 14:02 | XMS_ITS | Encounter Summary ---
Author Organization [email or web address] Address [address] [place] [address] Care Team Providers Care Ortho Nurse Name Role Phone Jamal CARLISLE DO, Robert William Primary Care Provide r Unavailable Desiree Patrick MD Unavailable Farrah Nicole APRN,REPAIRER HELPER Unavailable Bry Echevarria MD Unavailable Jamal CARLISLE DO, Robert William Unavailable Unav Stephani Diaz MD Primary Care Provider [phone] Shruti Vergara RN Unavailable Unavailable Bianka Loera CNP Primary Care Provider [phone] Desiree Patrick MD Primary Care P rovider Encounter Details Date Type Department Care Team (Late st Contact Info) Description 10/08/2016 Historical Conversion [facility] Family Medicine [address] [place] [address] Social History Tobacco Use Types Packs/Day Years [...] as of this encounter Nursing Notes * [facility], GENERICPROVIDER - 10/08/2016 12:00 AM CDT Patient calls triage with complaints of elevated heart rate in the 140's since Wednesday morning. He states that he has taken his prescribed Beta-Blockers multiple times and they have not been helping with the elevated heart rate as they should be. Patient denies any shortness of breath, dizziness, lig htheadedness, chest pain or confusion. Patient instructed by junior underwriter to go to the Emergency Room at [facility] to be evaluated. Patient verbalized understanding of instructions. STACY MCCAULEY Electronically signed by:Tammy Coronado RN Oct 08 2016 8:22AM DRILL PRESS SET UP OPERATOR RADIAL documented in this encounter Plan of Treatment Not on file documented as of this encounter Visit Diagnoses Not on filedocumented in this encounter Care Teams Ortho Nurse Relationship Specialty Start Date End Date Casey Berry II, DO PCP - General 11/22/06 08/17/19 Stephani Aleman MD PCP - General Family Medicine 08/18/19 09/16/20 Bianka Loera CNP [address] [facility] 2 [place] [address] PCP - General Nurse Practitioner Family 09/17/2001/10 Desiree Patrick MD [address] [place] [address] PCP - General Electrophysiology 02/23/22 03/09/22 Desiree Patrick MD [address] [place] [address] 08/09/17 Farrah Nicole, GEOLOGICAL E LOGGER,REPAIRER HELPER [address] [place] [address] 08/09/17 Bry Echevarria MD [address] [place] [place] [place] [address] 08/09/17 Casey Berry II, DO 08/09/17 Shruti Vergara RN RN Registered Nurse 08/27/20 documented as of this encounter Additional Source Comments PLEASE NOTE: Replies to this message will not be received.[facility] hospital and [facility]
--- OUTSIDE RECORDS SUMMARY | 2024-01-28 14:02 | XMS_ITS | Encounter Summary ---
Author Organization [employer] Address [address] [place] [address] Care Team Providers Care Medical Office Coordinator Name Role Phone Jamal CARLISLE DO, Robert William Primary Care Provide r Unavailable Desiree Patrick MD Unavailable Farrah Nicole APRN,STAMPER BLOCKER Unavailable Bry Echevarria MD Unavailable Jamal CARLISLE DO, Robert William Unavailable Unav Stephani Diaz MD Primary Care Provider Shruti Vergara RN Unavailable Unavailable Bianka Loera CNP Primary Care Provider Desiree Patrick MD Primary Care P rovider Encounter Details Date Type Department Care Team (Late st Contact Info) Description 12/31/2016 Historical Conversion [facility] Family Medicine [address] [facility] [place] [address] Desiree Rubi PAC [address] [place] [address] Social History Tobacco Use Types [...] - 08/31/2017 12:00 AM CST UROLOGY CRISTIAN LADI : 1945 HX: [id number] DOS: 08/31/2017 HISTORY OF PRESENT ILLNESS: Anurag [...] 2% of the specimen. 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 He is status post EBRT [...] watch that. PLAN: He is seeing Dr. iWnslow in November for a follow up and I will see him in February 2018 with a UA kavya PSA. If he has any questions or concerns in the meantime, he is instructed to contact the office. I spent 30 minutes total time with the patient, over 50% was counseling and coordination of care inregards to the above issues. Mare Rubi P.A.-C./lb22 Electronically signed by:Desiree Rubi PA-C Sep 02 2017 5:01PM DATA COLLECTOR * Desiree Rubi - 03/30/2017 12:00 AM CDT UROLOGY CRISTIAN BLEDSOE : 1945 HX: [id number] DOS: 03/30/2017 HISTORY OF PRESENT ILLNESS: 71-year-old [...] tissue. The right mid prostate he had Curt 7 cancer involving 20% of the tissue in that area. [facility] a Ocala 7 cancer involving 5% of the specimen. [...] and try his BiPAP machine. Mare Rubi P.A.-C./ cc: Dr. Moon Maloney [facility] Radha Winslow [facility] Dr. Casey Berry [facility] Radha Electronically signed by:Desiree Rubi PA-C Apr 02 2017 1:20PM DATA COLLECTOR * Desiree Rubi - 12/31/2016 12:00 AM CDT UROLOGY CRISTIAN BLEDSOE : 1945 HX: [id number] DOS: 12/31/2016 HISTORY OF PRESENT ILLNESS: 71-year-old male who presents to the Urology clinic today. Hehad a velocity change with his PSA. On his prostate exam he had a rubbery nodularity on both sides.It was a symmetrical prostate. His PSA was monitored for a little while. In August he had a SAND CUTTING MACHINE OPERATOR 3test and that came back positive. He was brought back for a prostate biopsy October 23, 2016. His pathology showed Curt 6 cancer at the left base of the prostate involving 2% of the specimen. He hadGleason 7 cancer at the left mid prostate involving less than 5% of the tissue. The right mid prostate he had a Ocala 7 cancer involving 20% of the specimen [...] Rubi P.A.-C./anna 28 cc: Dr. Moon Maloney [facility] Radha Winslow [facility] Dr. Casey Berry [facility] Radha Electronically signed by:Desiree Rubi PA-C Jan 06 2017 4:31PM DATA COLLECTOR Author documented in this encounter Plan of Treatment Not on file documented as of this encounter Visit Diagnoses Not on filedocumented in this encounter Care Teams Medical Office Coordinator Relationship Specialty Start Date End Date Casey Berry II, DO PCP - General 11/22/06 08/17/19 Stephani Aleman MD PCP - General Family Medicine 08/18/19 09/16/20 Bianka Loera CNP [address] [place] [id number] PCP - General Nurse Practitioner Family 09/17/20 712/31 Desiree Patrick MD [address] [place] [address] PCP - General Electrophysiology 02/23/22 03/09/22 Desiree Patrick MD [address] [place] [address] 08/09/17 Farrah Nicole APRN,STAMPER BLOCKER [address] [place] [address] 08/09/17 Bry Echevarria MD [address] [place] [id number] 08/09/17 Casey Berry II, DO 08/09/17 Shruti Vergara, RN RN Registered Nurse 08/27/20 documented as of this encounter Additional Source Comments PLEASE NOTE: Replies to this message will not be received.[facility] and [facility]
--- OUTSIDE RECORDS SUMMARY | 2024-01-28 14:02 | XMS_ITS | Encounter Summary ---
Author Organization [employer] Address [address] [place] [address] Care Team Providers Care Assistant Grocery Store Manager Name Role Phone Jamal CARLISLE DO, Robert William Primary Care Provide r Unavailable Desiree Patrick MD Unavailable Farrah Nicole APRN,DISTRICT SERVICE MANAGER Unavailable [phone] Bry Echevarria MD Unavailable [phone] Jamal CARLISLE DO, Robert William Unavailable Unav xiable Stephani Aleman MD Primary Care Provider Shruti Vergara RN Unavailable Unavailable Bianka Loera CNP Primary Care Provider Desiree Patrick MD Primary Care P rovider Encounter Details Date Type Department Care Team (Late st Contact Info) Description 10/09/2016 Historical Conversion [facility] Family Medicine [address] [facility] [place] [address] Jana Aleman APRN,INSIDE BARREL POLISHER [address] [place] [address] Social History Tobacco Use Types [...] this encounter Progress Notes * Jana Aleman, SECURITY INTELLIGENCE ANALYST,INSIDE BARREL POLISHER - 10/09/2016 12:00 AM CDT Assessment 1. [...] the first available appointment with either Shanda Diaz. [facility]. He is instructed to return should his [...] Thao Phone Number to Contact Patient: : [phone] to Provider, Practice or Agency: : Either Shanda Mark or [facility] Reason For Visit Patient in [...] 1 TABLET BY MOUTH ONCE DAILY; Therapy: [id number] to (Evaluate:14Vul4878) Requested for: 13Jul2016; Last Rx:13Jul2016 Ordered 3. Metoclopramide HCl - 5 MG Oral Tablet; TAKE 1 TABLET as needed; Therapy: 10Sep2014 to Requested for: [id number] Recorded 4. Metoprolol Tartrate 25 MG Oral Tablet; 1 prn a fib; Therapy: (Recorded:[id number]) to Requested for: [id number] Recorded 5. Tylenol Extra Strength 500 MG Oral Tablet; Therapy: (Recorded:[id number]) to Recorded 6. Warfarin Sodium 5 MG Oral Tablet; Take as directed by ACC; Therapy: 66Rhy4429 to (Evaluate:27Kei5271) Requested for: 14Jul2016 Recorded Allergies 1. Penicillins [...] RN CNP RN,NIKKI; Oct 18 2016 1:54PM PICKET LABOR [employer]ION Electronically signed by : Casey Berry DO; Oct 22 2016 1:20PM PICKET LABOR UNION documented in this encounter Plan of Treatment Not on file documented as of this encounter Visit Diagnoses Not on filedocumented in this encounter Care Teams Assistant Grocery Store Manager Relationship Specialty Start Date End Date Casey Berry II, DO PCP - General 11/22/06 08/17/19 Stephani Aleman MD PCP - General Family Medicine 08/18/19 09/16/20 Bianka Loera CNP [address] [facility] [address] [place] [address] PCP - General Nurse Practitioner Family 09/17/20 712/31 [place] [address] [place] [address] [place] [address] PCP - General Electrophysiology 02/23/22 03/09/22 Desiree Patrick MD [address] [place] [address] 08/09/17 Farrah Nicole, SECURITY INTELLIGENCE ANALYST,DISTRICT SERVICE MANAGER [address] [place] [address] 08/09/17 Bry Echevarria MD [address] [place] [address] [place] [address] 08/09/17 Casey Berry II, DO 08/09/17 Shruti Vergara RN RN Registered Nurse 08/27/20 documented as of this encounter Additional Source Comments PLEASE NOTE: Replies to this message will not be received.[facility] and [facility]
--- OUTSIDE RECORDS SUMMARY | 2024-01-28 14:02 | XMS_ITS | Encounter Summary ---
Author Organization [employer] Address [address] [place] [address] Care Team Providers Care Director Power Name Role Phone Jamal CARLISLE DO, Robert William Primary Care Provide r Unavailable Desiree Patrick MD Unavailable Farrah Nicole APRN,ASSEMBLY AND PACKING SUPERVISOR Unavailable Bry Echevarria MD Unavailable Jamal CARLISLE DO, Robert William Unavailable Unav Stephani Diaz MD Primary Care Provider Shruti Vergara RN Unavailable Unavailable Bianka Loera CNP Primary Care Provider Desiree Patrick MD Primary Care P rovider Encounter Details Date Type Department Care Team (Late st Contact Info) Description 03/30/2017 Historical Conversion [facility] Family Medicine [address] [facility] [place] [address] Desiree Rubi PAC [address] [place] [address] Social History Tobacco Use Types [...] filedocumented in this encounter Care Teams Director Power Relationship Specialty Start Date End Date Casey Berry II, DO PCP - General 11/22/06 08/17/19 Stephani Aleman MD PCP - General Family Medicine 08/18/19 09/16/20 Bianka Loera CNP [address] [place] [address] 2 [place] [address] PCP - General Nurse Practitioner Family 09/17/20 712/31 Desiree Patrick MD [address] [place] [address] PCP - General Electrophysiology 02/23/22 03/09/22 Desiree Patrick MD [address] [place] [address] 08/09/17 Farrah Nicole APRN,ASSEMBLY AND PACKING SUPERVISOR [address] [place] [address] 08/09/17 Bry Echevarria MD [address] [place] [address] 08/09/17 Casey Berry II, DO 08/09/17 Shruti Vergara RN RN Registered Nurse 08/27/20 documented as of this encounter Additional Source Comments PLEASE NOTE: Replies to this message will not be received.[facility] and [facility]
--- OUTSIDE RECORDS SUMMARY | 2024-01-28 14:02 | XMS_ITS | Encounter Summary ---
Author Organization [employer] Address [address] [place] [address] Care Team Providers Care Care Director Name Role Phone Jamal CARLISLE DO, Robert William Primary Care Provide r Unavailable Desiree Patrick MD Unavailable Farrah Nicole APRN,IT ENGINEER Unavailable Bry Echevarria MD Unavailable [phone] Jamal CARLISLE DO, Robert William Unavailable Unav Stephani Diaz MD Primary Care Provider Shruti Vergara RN Unavailable Unavailable Bianka Loera CNP Primary Care Provider Desiree Patrick MD Primary Care P rovider Encounter Details Date Type Department Care Team (Late st Contact Info) Description 10/17/2016 Historical Conversion [facility] Family Medicine [address] [place] [address] Social History Tobacco Use Types Packs/Day Years [...] do you have serious difficulty hearing? Yes-slightly POARCH 10/17/2016 Are you blind or do you [...] as of this encounter Nursing Notes * [facility], GENERICPROVIDER - 10/17/2016 12:00 AM CDT Rohan presented to Urgent Care with complaint of feeling like his heart is racing, he can feel it pounding and a tighness in his chest occurs when this happens. He was seen at [facility] 10 days ago for an episode similar. [...] to be evaluatedin the Emergency Room at [facility]. Patient and his elected to go by private car with patients driving. Electronically signed by:Tammy Coronado RN Oct 17 2016 2:09PM USER SUPPORT ANALYST AMENDMENTS: 1. Patient declines shortness of breath, radiating neck pain, shoulderblade pain or sternal pain. Electronically signed by:Tammy Coronado RN Oct 17 2016 2:14PM USER SUPPORT ANALYST documented in this encounter Plan of Treatment Not on file documented as of this encounter Visit Diagnoses Not on filedocumented in this encounter Care Teams Care Director Relationship Specialty Start Date End Date Casey Berry II, DO PCP - General 11/22/06 08/17/19 Stephani Almean MD PCP - General Family Medicine 08/18/19 09/16/20 Bianka Loera CNP [address] [place] [address] PCP - General Nurse Practitioner Family 09/17/2001/10 Desiree Patrick MD [address] [place] [address] PCP - General Electrophysiology 02/23/22 03/09/22 Desiree Patrick MD [address] [place] [address] 08/09/17 Farrah Nicole APRN,IT ENGINEER [address] [place] [address] 08/09/17 Bry Echevarria MD [address] [place] [id number] 08/09/17 Casey Berry II, DO 08/09/17 Shruti Vergara, RN RN Registered Nurse 08/27/20 documented as of this encounter Additional Source Comments PLEASE NOTE: Replies to this message will not be received.[facility] and [facility]
--- OUTSIDE RECORDS SUMMARY | 2024-01-28 14:02 | XMS_ITS | Encounter Summary ---
Author Organization [employer] Address [address] [place] [address] Care Team Providers Care Sales Mgr Name Role Phone Jamal CARLISLE DO, Robert William Primary Care Provide r Unavailable Desiree Patrick MD Unavailable Farrah Nicole APRN,DRAMATIC TEACHER Unavailable Bry Echevarria MD Unavailable [phone] Jamal CARLISLE DO, Robert William Unavailable Unav Stephani Diaz MD Primary Care Provider Shruti Vergara RN Unavailable Unavailable Bianka Loera CNP Primary Care Provider Desiree Patrick MD Primary Care P rovider Encounter Details Date Type Department Care Team (Late st Contact Info) Description 07/01/2017 Historical Conversion [facility] [address] [facility] [place] [address] Bry Echevarria MD [address] [place] [address] Social History Tobacco Use Types [...] ap pointment with the anticoagulation clinic in [facility] on July 09, 2017.[facility] [place] [facility] and updated [facility]. The medicine list was reconciled. History of Present Illness Mr Carroll is a 71-year-old white male who comes to my on-call internal medicine clinic today forfollow-up of her recent hospitalization. His primary care physician is Dr. Beryr. The patient was hospitalized in [place] last week and he underwent a cardioversion with the dofetilide. He is now onthat medication twice a day. His INR was slightly elevated at 3.2 when he was up in [place]. He was told to come in today for an INR check. He has not had any problems with bleeding. We did check his anticoagulation and his INR was therapeutic at 2.8. He will follow-up with the anticoagulation clinic in [facility] in 8 days and he will [...] in atrial fibrillation.He is following up with [place] cardiology in 1 month. Allergies 1. Penicillins 2. Sulfa Drugs Vitals Vital Signs Recorded: [id number] 02:41PM Systolic 136, LUE, Sitting Diastolic 70, [...] questions appropriately. Results/Data Results, Free Text - [facility]: is therapeutic at 2.8. Signatures Electronically signed by : Bry Echevarria M.D.; Jul 01 2017 3:31PM SUPERVISOR [employer] (Author) documented in this encounter Plan of Treatment Not on file documented as of this encounter Visit Diagnoses Not on filedocumented in this encounter Care Teams Sales Mgr Relationship Specialty Start Date End Date Casey Berry II, DO PCP - General 11/22/06 08/17/19 Stephani Aleman MD PCP - General Family Medicine 08/18/19 09/16/20 Bianka Loera, RESERVOIR ENGINEERING CONSULTANT [address] [place] [phone] PCP - General Nurse Practitioner Family 09/17/20 712/31 Desiree Patrick MD [address] [place] [address] PCP - General Electrophysiology 02/23/22 03/09/22 Desiree Patrick MD [address] [place] [address] 08/09/17 Farrah Nicole, RETAIL SALES ASSOCIATE,[facility] [address] [place] [address] 08/09/17 Bry Echevarria MD [address] [place] [address] [place] [phone] 08/09/17 Casey Berry II, DO 08/09/17 Shruti Vergara, RN RN Registered Nurse 08/27/20 documented as of this encounter Additional Source Comments PLEASE NOTE: Replies to this message will not be received.[facility]
--- OUTSIDE RECORDS SUMMARY | 2024-01-28 14:02 | XMS_ITS | Encounter Summary ---
Author Organization [employer] Address [address] [place] [address] Care Team Providers Care Appliance Service Technician Name Role Phone Jamal CARLISLE DO, Robert William Primary Care Provide r Unavailable Desiree Patrick MD Unavailable Farrah Nicole APRN,RECORDS MANAGER Unavailable Bry Echevarria MD Unavailable Jamal CARLISLE DO, Robert William Unavailable Unav Stephani Diaz MD Primary Care Provider Shruti Vergara RN Unavailable Unavailable Bianka Loera CNP Primary Care Provider Desiree Patrick MD Primary Care P rovider Encounter Details Date Type Department Care Team (Late st Contact Info) Description 11/30/2016 Historical Conversion [facility] Family Medicine [address] [place] [address] Casey Berry II, DO Social History Tobacco [...] on filedocumented in this encounter Care Teams Appliance Service Technician Relationship Specialty Start Date End Date Casey Berry II, DO PCP - General 11/22/06 08/17/19 Stephani Aleman MD PCP - General Family Medicine 08/18/19 09/16/20 Bianka Loera CNP [address] [place] [address] [address] [place] [phone] PCP - General Nurse Practitioner Family 09/17/2001/10 [place] [address] [place] [address] PCP - General Electrophysiology 02/23/22 03/09/22 Desiree Patrick MD [address] [place] [address] 08/09/17 Farrah Nicole APRN,RECORDS MANAGER [address] [place] [address] 08/09/17 Bry Echevarria MD [facility] [place] [address] 08/09/17 Casey Berry II, DO 08/09/17 Shruti Vergara RN RN Registered Nurse 08/27/20 documented as of this encounter Additional Source Comments PLEASE NOTE: Replies to this message will not be received.[facility] and [facility]
--- OUTSIDE RECORDS SUMMARY | 2024-01-28 14:02 | XMS_ITS | Encounter Summary ---
Author Organization [employer] Address [address] [place] [address] Care Team Providers Care Netbackup Engineer Name Role Phone Jamal CARLISLE DO, Robert William Primary Care Provide r Unavailable Desiree Patrick MD Unavailable Farrah Nicole APRN,WHITE SPOOLER Unavailable [phone] Bry Echevarria MD Unavailable [phone] Jamal CARLISLE DO, Robert William Unavailable Unav Stephani Diaz MD Primary Care Provider [phone] Shruti Vergara RN Unavailable Unavailable Bianka Loera CNP Primary Care Provider Desiree Patrick MD Primary Care P rovider Encounter Details Date Type Department Care Team (Late st Contact Info) Description 10/21/2016 Historical Conversion [facility] Family Medicine [address] [place] [address] Social History Tobacco Use Types Packs/Day Years [...] on filedocumented in this encounter Care Teams Netbackup Engineer Relationship Specialty Start Date End Date Casey Berry II, DO PCP - General 11/22/06 08/17/19 Stephani Aleman MD PCP - General Family Medicine 08/18/19 09/16/20 Bianka Loera CNP [address] [place] [phone] PCP - General Nurse Practitioner Family 09/17/2001/10 Desiree Patrick MD [address] [place] [address] PCP - General Electrophysiology 02/23/22 03/09/22 Desiree Patrick MD [address] [place] [address] 08/09/17 Farrah Nicole APRN,WHITE SPOOLER [address] [place] [address] 08/09/17 Bry Echevarria MD [address] [place] [address] 08/09/17 Casey Berry II, DO 08/09/17 Shruti Vergara RN RN Registered Nurse 08/27/20 documented as of this encounter Additional Source Comments PLEASE NOTE: Replies to this message will not be received.[facility] and [facility]
--- OUTSIDE RECORDS SUMMARY | 2024-01-28 14:03 | XMS_ITS | Encounter Summary ---
Author Organization [employer] Address [address] [place] [address] Care Team Providers Care Patrol Supervisor Name Role Phone Jamal CARLISLE DO, Robert William Primary Care Provide r Unavailable Desiree Patrick MD Unavailable Farrah Nicole APRN,FARM CONTRACTOR Unavailable Bry Echevarria MD Unavailable Jamal CARLISLE DO, Robert William Unavailable Unav Stephani Diaz MD Primary Care Provider [phone] Shruti Vergara RN Unavailable Unavailable Bianka Loera CNP Primary Care Provider Desiree Patrick MD Primary Care P rovider Encounter Details Date Type Department Care Team (Late st Contact Info) Description 08/28/2015 Historical Conversion [facility] Family Medicine [address] [place] [address] Casey Berry II, DO Social History Tobacco Use Types Packs/Day Years Used Date Smoking Tobacco: Never Assessed Sex and Gender Information Value Date Recorded Sex Assigned at Not on file Gender Identity Not on file Sexual Orientation Not on file documented as of this encounter Last Filed Vital Signs Vital Sign Reading Time Taken Comments Blood Pressure 134/90 08/28/2015 12:00 AM GREIGE MENDER Pulse - - Temperature - - Respiratory Rate - - Oxygen Saturation - - Inhaled Oxygen Concentration - - Weight 90.2 kg (198 lb 13.7 oz) 016 12:00 AM GREIGE MENDER Height 186 cm (6' 1.23) 08/28/2015 12: 00 AM GREIGE MENDER Body Mass Index 26.07 08/28/2015 12:00 AM GREIGE MENDER documented in this encounter Progress Notes * [...] healthy by no longer smoking.; Status:Complete; Done: 44Iyr1690 Reason For Visit Go over CT results. [...] 1 TABLET BY MOUTH ONCE DAILY; Therapy: 47Vwm9929 to (Evaluate:67Zfq0275) Requested for: 60Fqd1935; Last Rx:45Van1965 Ordered 2. Metoclopramide HCl - 5 MG Oral Tablet; TAKE 1 TABLET BY MOUTH THREE TIMES DAILY WITH MEALS; Therapy: 10Sep2014 to (Evaluate:90Cyq2815) Requested for: 71Qsw9981; Last Rx:90Zpl6644 Ordered 3. Metoprolol Tartrate 25 MG Oral Tablet; 1/2 to 1 prn a fib Requested for: 66Xxb6215; Last Rx:41Mjd0640 Ordered 4. Tylenol Extra Strength 500 MG Oral Tablet; Therapy: (Recorded:84Dpc8270) to Recorded 5. Warfarin Sodium 5 MG Oral Tablet; Take as directed by ACC; Therapy: 25Ptn9597 to (Evaluate:15May2017) Requested for: 20May2016 Recorded Allergies 1. Penicillins 2. Sulfa Drugs Vitals Recorded: 33Jqf5674 10:00AM Systolic 115, RUE, Sitting Diastolic 76, RUE, Sitting Heart Rate 65 Respiration 16 Temperature 97.6 F, Forehead Weight 91.5 kg BMI Calculated 26.45 BSA Calculated 2.16 2+ Falls or 1 Fall with injury in last year? No O2 Saturation 96 Signatures Casey Berry II, D.OWilliam/pj-29 Electronically signed by : Casey Berry DO; Jul 09 2016 1:56PM GREIGE MENDER * Casey Berry II, DO - 03/10/2016 [...] use sparingly qid; Therapy: 18Nov2015 to (Last Rx:02Tva1260) Requested for: 69Kho4033 Ordered 2. Lisinopril 10 MG Oral Tablet; TAKE 1 TABLET BY MOUTH ONCE DAILY; Therapy: 40Peb9318 to (Evaluate:79Wum5482) Requested for: 52Wtb3542; Last Rx:93Guy3230 Ordered 3. Metoclopramide HCl - 5 MG Oral Tablet; TAKE 1 TABLET BY MOUTH THREE TIMES DAILY WITH MEALS; Therapy: 10Sep2014 to (Evaluate:41Njq5008) Requested for: 76Eue3752; Last Rx:65Hmv0637 Ordered 4. Tylenol Extra Strength 500 MG Oral Tablet; Therapy: (Recorded:21Bgc1970) to Recorded 5. Warfarin Sodium 5 MG Oral Tablet; Take as directed by ACC; Therapy: 18Qtm1845 to (Evaluate:89Qwp2730) Requested for: 19Feb2016; Last Rx:19Feb2016 Ordered Allergies 1. Penicillins 2. Sulfa Drugs Social History 1. Former smoker: 0 - 10 pack years (V1.) (Z87.891) Review of Systems CONSTITUTIONAL:Denies weight loss, [...] Vital Signs [Data Includes: Current Encounter] Recorded: 87Ova9139 10:06AM Blood Pressure 124 / 71 Heart [...] Former smoker: 0 - 10 pack years (V1.) (Z87.891) 1. Atrial fibrillation with more episodes [...] Casey Berry DO; Apr 02 2016 8:50AM GREIGE MENDER * Casey Berry II, DO - 01/28/2016 [...] use sparingly qid; Therapy: 18Nov2015 to (Last Rx:68Xjk3085) Requested for: 89Arl5857 Ordered 2. Lisinopril 10 MG Oral Tablet; TAKE 1 TABLET BY MOUTH ONCE DAILY; Therapy: 01Mqp3841 to (Evaluate:99Pxf9733) Requested for: 75Tca4665; Last Rx:26Mec6114 Ordered 3. Metoclopramide HCl - 5 MG Oral Tablet; TAKE 1 TABLET BY MOUTH THREE TIMES DAILY WITH MEALS; Therapy: 10Sep2014 to (Evaluate:39Nqm3393) Requested for: 91Lyf1079; Last Rx:14Efs9467 Ordered 4. Tylenol Extra Strength 500 MG Oral Tablet; Therapy: (Recorded:18Nov2015) to Recorded 5. Xarelto 15 MG Oral Tablet; TAKE 1 TABLET DAILY Requested for: 08Jan2016; Last Rx:08Jan2016 Ordered Allergies 1. Penicillins 2. Sulfa Drugs Social History 1. Former smoker: 0 - 10 pack years (V15.82) (Z87.891) Vitals Vital Signs [Data Includes: Current Encounter] Recorded: 94Pzu9408 10:31AM Blood Pressure 139 / 83 Heart [...] Casey Berry DO; Feb 11 2016 7:47AM GREIGE MENDER * Casey Berry II, DO - 12/11/2015 12:00 AM CDT Chief Complaint/Reason for Visit f/up ct History of Present Illness This is a 70-year-old male who recently underwent a stress test. The stress test showed no major abnormality, however, it was suggested of an aneurysm. 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 [place] that the CT scan would be a [...] 1 TABLET BY MOUTH ONCE DAILY; Therapy: 56Oyv9771 to (Evaluate:93Gtg6735) Requested for: 68Yaa4468; Last Rx:97Elf0134 Ordered 3. Metoclopramide HCl - 5 MG Oral Tablet; TAKE 1 TABLET BY MOUTH THREE TIMES DAILY WITH MEALS; Therapy: 10Sep2014 to (Evaluate:66Hia3406) Requested for: 03Dec2015; Last Rx:80Sul1600 Ordered 4. Tylenol Extra Strength 500 MG [...] Casey Berry DO; Dec 30 2015 8:19AM GREIGE MENDER * Casey Berry II, DO - 11/18/2015 12:00 AM CDT Chief Complaint/Reason for Visit ER follow up History of Present Illness This is a 69-year-old male who has a long history of paroxysmal tachycardia. He recently had an episode of paroxysmal tachycardia. He went in to the ER in [place] and found that he had a flutter [...] INHALE ONE SPRAY TWICE DAILY PRN; Therapy: 80Aqx8106 to Requested for: 03Jan2014 Recorded 2. Lisinopril 10 MG Oral Tablet; TAKE 1 TABLET BY MOUTH ONCE DAILY; Therapy: 46Cuy9278 to (Evaluate:59Yob0061) Requested for: 40Dho8466; Last Rx:90Vsh4002 Ordered 3. Metoclopramide HCl - 5 MG Oral Tablet; TAKE 1 TABLET BY MOUTH THRE E TIMES DAILY WITH MEALS; Therapy: 10Sep2014 to (Evaluate:91Kft5525) Requested for: 92Axl3331; Last Rx:79Dge3749 Ordered 4. Metoprolol Tartrate 25 MG Oral [...] step overall is. Signatures Casey Berry II, D.OWilliam/pj-12 Electronically signed by : Casey Berry DO; Nov 26 2015 8:06AM GREIGE MENDER documented in this encounter H&P Notes * [...] INHALE ONE SPRAY TWICE DAILY PRN; Therapy: 71Xrz3598 to Requested for: 03Jan2014 Recorded 3. Lisinopril 10 MG Oral Tablet; TAKE 1 TABLET BY MOUTH ONCE DAILY; Therapy: 25Age9694 to (Evaluate:85Ape7013) Requested for: 43Uqi9568; Last Rx:42Yvv4191 Ordered 4. Metoclopramide HCl - 5 MG Oral Tablet; TAKE 1 TABLET BY MOUTH THRE E TIMES DAILY WITH MEALS; Therapy: 10Sep2014 to (Evaluate:35Jap4970) Requested for: 33Ttl9641; Last Rx:69Tiz3964 Ordered 5. Vitamin D3 1000 UNIT Oral [...] healthy by no longer smoking.; Status:Complete; Done: 79Jkq6610 1.Prevnar shot. 2.CBC, vitamin D, PSA, comp, and lipid. 3.Did discuss with patient about his foot. Signatures Casey Berry II, D.OWilliam/jaj-08 Electronically signed by : Casey eBrry DO; Sep 19 2015 8:13AM GREIGE MENDER documented in this encounter Procedure Notes * Casey Berry II, DO - 11/26/2015 12:00 AM CDTAssociated Order(s): NUCLEAR MEDICINE NUCLEAR MEDICINE CRISTIAN BLEDSOE : 1945 HX: [id number] DOS: 11/26/2015 Lexiscan portion of Lexiscan Cardiolite. [...] by:Casey Berry DO Dec 03 2015 7:45AM GREIGE MENDER documented in this encounter Miscellaneous Notes * [...] you have any questions. Casey Berry DO [facility] Electronically signed by:DEYANIRA FRANCOIS Sep 09 2015 11:25AM GREIGE MENDER documented in this encounter Plan of Treatment Not on file documented as of this encounter Procedures Procedure Name Priority Date/Time Associated Diagnosis Comments NUCLEAR MEDICINE 11/26/2015 documented in this encounter Results * NUCLEAR MEDICINE (11/26/2015) Anatomical Region Laterality Modality Other Narrative Procedure Note Casey Berry II, DO - 11/26/2015 12:00 AM CDT NUCLEAR MEDICINE CRISTIAN BLEDSOE : 1945 HX: [id number] DOS: 11/26/2015 Lexiscan portion of Lexiscan Cardiolite. BASELINE EKG: Shows no abnormality of note. PROTOCOL: Patient was given Lexiscan and Cardiolite. He had no majorcomplaints. EKG CHANGES NOTED DURING TEST: EKG showed no changes. IMPRESSION: 1. Normal Lexiscan portion of Lexiscan Cardiolite. RECOMMENDATIONS: We will await radiologic portion of test. Casey Berry II, D.O./jaj-23 Electronically signed by:Casey Berry DO Dec 03 2015 7:45AM GREIGE MENDER Casey Berry II, DO RAD NUCLEAR M EDICINE documented in this encounter Visit Diagnoses Not on filedocumented in this encounter Care Teams Patrol Supervisor Relationship Specialty Start Date End Date Casey Berry II, DO PCP - General 11/22/06 08/17/19 Stephani Aleman MD PCP - General Family Medicine 08/18/19 09/16/20 Bianka Loera INFORMATION TECHNOLOGY PROJECT MANAGER [address] [facility] [address] [place] [address] PCP - General Nurse Practitioner Family 09/17/20 712/31 Desiree Patrick MD [address] [place] [address] PCP - General Electrophysiology 02/23/22 03/09/22 [place] [address] [place] [address] 08/09/17 Farrah Nicole APRN,ALEX [address] [place] [address] 08/09/17 Bry Echevarria MD [address] [place] [address] 08/09/17 Casey Berry II, DO 08/09/17 Shruti Vergara RN RN Registered Nurse 08/27/20 documented as of this encounter Additional Source Comments PLEASE NOTE: Replies to this message will not be received.[facility]
--- OUTSIDE RECORDS SUMMARY | 2024-01-28 14:03 | XMS_ITS | Encounter Summary ---
Author Organization [employer] Address [address] [place] [address] Care Team Providers Care Bitumastic Applier Name Role Phone Jamal CARLISLE DO, Robert William Primary Care Provide r Unavailable Desiree Patrick MD Unavailable Farrah Nicole APRN,WELLNESS GUIDE Unavailable Bry Echevarria MD Unavailable [phone] Jamal CARLISLE DO, Robert William Unavailable Unav Stephani Diaz MD Primary Care Provider [phone] Shruti Vergara RN Unavailable Unavailable Bianka Loera CNP Primary Care Provider Desiree Patrick MD Primary Care P rovider Encounter Details Date Type Department Care Team (Late st Contact Info) Description 01/03/2014 Historical Conversion [facility] Family Medicine [address] [place] [address] Errol Berry II, DO Social History Tobacco [...] AM CDT CRISTIAN BLEDSOE : 1945 HX: [id number] DOS: 01/03/2014 CHIEF COMPLAINT: Back pain. HISTORY [...] motion. Errol Berry II, D.O./jaj-06 Electronically signed by:REROL BERRY D.O. Jan 17 2014 7:34AM DENTAL TECHNICIAN APPRENTICE documented in this encounter Plan of Treatment Not on file documented as of this encounter Visit Diagnoses Not on filedocumented in this encounter Care Teams Bitumastic Applier Relationship Specialty Start Date End Date Errol Berry II, DO PCP - General 11/22/06 08/17/19 Stephani Aleman MD PCP - General Family Medicine 08/18/19 09/16/20 Bianka Loera FAMILY SPECIALIST [address] [place] [address] PCP - General Nurse Practitioner Family 09/17/20 7/12/31 Desiree Patrick MD [address] [place] [address] PCP - General Electrophysiology 02/23/22 03/09/22 Desiree Patrick MD [address] [place] [address] 08/09/17 Farrah Nicole APRN,WELLNESS GUIDE [address] [place] [address] 08/09/17 Bry Echevarria MD [facility] [place] [address] 08/09/17 Errol Berry II, DO 08/09/17 Shruti Vergara RN RN Registered Nurse 08/27/20 documented as of this encounter Additional Source Comments PLEASE NOTE: Replies to this message will not be received.[facility] and [facility]
--- OUTSIDE RECORDS SUMMARY | 2024-01-28 14:03 | XMS_ITS | Encounter Summary ---
Author Organization [employer] Address [address] [place] [address] Care Team Providers Care Front Tender Name Role Phone Jamal CARLISLE DO, Robert William Primary Care Provide r Unavailable Desiree Patrick MD Unavailable Farrah Nicole APRN,CUTTING DEPARTMENT SUPERVISOR Unavailable Bry Echevarria MD Unavailable Jamal CARLISLE DO, Robert William Unavailable Unav Stephani Diaz MD Primary Care Provider Shruti Vergara RN Unavailable Unavailable Bianka Loera CNP Primary Care Provider [phone] Desiree Patrick MD Primary Care P rovider Encounter Details Date Type Department Care Team (Late st Contact Info) Description 11/07/2015 Historical Conversion [facility] Family Medicine [address] [place] [address] Moon Maloney MD Social History Tobacco Use [...] Body Mass Index 26.65 08/28/2015 12:00 AM COMPOUNDER [employer] documented in this encounter Progress Notes * Moon Maloney MD - 11/06/2016 12:00 AM CDT UROLOGY [facility] CRISTIAN BLEDSOE : 1945 HX: [id number] DOS: 11/06/2016 SUBJECTIVE: Cristian and his are here to discuss the results of the recent prostate biopsy. We ended up taking Anurag off his Coumadin and doing a prostate biopsy because of a positive FAMILY AND CONSUMER SCIENCES PROFESSOR-3 test and an elevated PSA, so he is here with his to discuss that. PHYSICAL EXAMINATION: Vital Signs: Vital signs reviewed in Allscripts. Please see vitals tab for details. His PSA was 5.4. His AUA symptom score is 1. His prostate size is 29.34 grams. 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 Adenocarcinoma [place] 7 less than 5% one of two [...] prostatectomy. Moon Maloney M.D./la-1 cc: Jose Winslow M.D./[facility] cc: Casey Berry II, D.O./[facility] Electronically signed by:Moon Maloney M.D. Nov 09 2016 1:49PM COMPOUNDER [employer] * Moon Maloney MD - 10/23/2016 12:00 AM CDT UROLOGY [facility] CRISTIAN BLEDSOE : 1945 HX: [id number] DOS: 10/23/2016 SUBJECTIVE: Cristian is here for a prostate biopsy. I saw Cristian in August. PSA has started to go up.He had a little bit of an elevated PSA and elevated PSA velocity. We did a FAMILY AND CONSUMER SCIENCES PROFESSOR-3 test. It did just come back positive. [...] negative. IMPRESSION: 1. Elevated PSA and positive FAMILY AND CONSUMER SCIENCES PROFESSOR-3 test. PLAN: I told Anurag to take [...] Moon Maloney M.D./la-17 cc: Casey Berry II, D.OWilliam/[facility] Electronically signed by:Moon Maloney M.D. Oct 26 2016 12:13PM COMPOUNDER [employer] * Moon Maloney MD - 08/27/2016 12:00 AM CST UROLOGY CRISTIAN BLEDSOE : 1945 HX: [id number] DOS: 08/27/2016 SUBJECTIVE: Cristian comes to see [...] because we are going to do a FAMILY AND CONSUMER SCIENCES PROFESSOR-3 test. LABORATORY DATA: AUA symptom score is 1. He has absolutely no trouble urinating. PSA is 5.4. IMPRESSION: 1. Elevated PSA velocity. PLAN: We are going to go ahead and get a FAMILY AND CONSUMER SCIENCES PROFESSOR-3 test because his velocity is really if [...] going to go ahead and get a FAMILY AND CONSUMER SCIENCES PROFESSOR-3 test today. Obviously if that is positive, [...] course risks of bleeding. However, if the FAMILY AND CONSUMER SCIENCES PROFESSOR-3 is negative, then I would just see him in six months for a PSA. Total time spent with the patient was 25 minutes with greater than 50% in counseling. Moon Maloney M.D./la-21 cc: Casey Berry II, D.OWilliam/[facility] Electronically signed by:Moon Maloney M.D. Sep 18 2016 1:34PM COMPOUNDER [employer] * Moon Maloney MD - 02/11/2016 12:00 AM CDT UROLOGY CRISTIAN BLEDSOE : 1945 HX: [id number] DOS: 02/11/2016 SUBJECTIVE: Cristian comes to see [...] Moon Maloney M.D./la-2 cc: Casey Berry, II, D.O./[facility] Electronically signed by:Moon Maloney M.D. Feb 24 2016 9:43AM COMPOUNDER [employer] * Moon Maloney MD - 11/07/2015 12:00 AM CDT UROLOGY CRISTIAN BLEDSOE : 1945 HX: [id number] DOS: 11/07/2015 REFERRING PROVIDER: Dr. Berry. HISTORY [...] He is a former smoker, retired from [employer], he is . FAMILY HISTORY: Negative for [...] Maloney M.D./la-29 cc: Casey Berry II, D.O./[facility] Electronically signed by:Moon Maloney M.D. Nov 25 2015 10:34AM COMPOUNDER [employer] documented in this encounter Plan of Treatment Not on file documented as of this encounter Visit Diagnoses Not on filedocumented in this encounter Care Teams Front Tender Relationship Specialty Start Date End Date Casey Berry II, DO PCP - General 11/22/06 08/17/19 Stephani Aleman MD PCP - General Family Medicine 08/18/19 09/16/20 Bianka Loera CNP [address] [facility] [address] [facility] [address] [place] [address] PCP - General Nurse Practitioner Family 09/17/2001/10 [place] [address] [place] [address] PCP - General Electrophysiology 02/23/22 03/09/22 Desiree Patrick MD [address] [place] [address] 08/09/17 Farrah Nicole APRN,CUTTING DEPARTMENT SUPERVISOR [address] [place] [address] 08/09/17 Bry Echevarria MD [address] [place] [address] [facility] [place] [address] 08/09/17 Casey Berry II, DO 08/09/17 Shruti Vergara RN RN Registered Nurse 08/27/20 documented as of this encounter Additional Source Comments PLEASE NOTE: Replies to this message will not be received.[facility] and [facility]
--- OUTSIDE RECORDS SUMMARY | 2024-01-28 14:03 | XMS_ITS | Encounter Summary ---
Author Organization [employer] Address [address] [place] [address] Care Team Providers Care Alteration Tailor Name Role Phone Jamal CARLISLE DO, Robert William Primary Care Provide r Unavailable Desiree Patrick MD Unavailable Farrah Nicole APRN,PARTS ANALYST Unavailable Bry Echevarria MD Unavailable Jamal CARLISLE DO, Robert William Unavailable Unav Stephani Diaz MD Primary Care Provider Shruti Vergara RN Unavailable Unavailable Bianka Loera CNP Primary Care Provider Desiree Patrick MD Primary Care P rovider Encounter Details Date Type Department Care Team (Late st Contact Info) Description 09/02/2016 Historical Conversion [facility] Family Medicine [address] [place] [address] Casey El II, DO Social History Tobacco [...] Comments Blood Pressure 151/81 09/02/2016 12:00 AM HOME DELIVERY DRIVER Pulse - - Temperature - - Respiratory Rate - - Oxygen Saturation - - Inhaled Oxygen Concentration - - Weight 93.5 kg (206 lb 2.1 oz) 09/02/2016 12:00 AM HOME DELIVERY DRIVER Height 185.1 cm (6' 0.87) 09/02/2016 12:00 AM Saúl WARE Body Mass Index 27.29 09/02/2016 12:00 AM HOME DELIVERY DRIVER documented in this encounter Functional Status Functional [...] as needed; Therapy: 10Sep2014 to Requested for: [id number] Recorded 7. Metoprolol Tartrate 50 MG Oral Tablet; TAKE 1 TABLET TWICE DAILY; Therapy: (Recorded:21Oct2016) to Recorded 8. Tylenol Extra Strength 500 MG Oral Tablet; Therapy: (Recorded:18Nov2015) to Recorded 9. Warfarin Sodium 5 MG Oral Tablet; Take as directed by [facility]; Therapy: 51Oez1054 to (Evaluate:69Skm0752) Requested for: 18Dqd1860; Last Rx:34Gpr7796 Ordered Allergies 1. Penicillins 2. Sulfa Drugs [...] in tactile fremitus. Signatures Casey El II, D.OWilliam/jaj-05 Electronically signed by : Casey El DO; Apr 16 2017 8:13AM HOME DELIVERY DRIVER * Casey El II, DO - 11/30/2016 [...] healthy by no longer smoking.; Status:Complete; Done: 71Mnn5869 Counseling Total time of encounter was 20 [...] first. At this point in time, the Airport Engineer has not stated that he a risk [...] as needed; Therapy: 10Sep2014 to Requested for: 25Nbr2132 Recorded 4. Metoprolol Tartrate 50 MG Oral Tablet; TAKE 1 TABLET TWICE DAILY; Therapy: (Recorded:21Oct2016) to Recorded 5. Tylenol Extra Strength 500 MG Oral Tablet; Therapy: (Recorded:18Nov2015) to Recorded 6. Warfarin Sodium 5 MG Oral Tablet; Take as directed by [facility]; Therapy: 45Ivv0298 to (Evaluate:12Nov2017) Requested for: 17Nov2016 Recorded Allergies 1. Penicillins 2. Sulfa Drugs Vitals Recorded: 30Nov2016 10:12AM Systolic 121 Diastolic 83 Heart Rate 106 Respiration 20 Temperature 98 F Weight 94.2 kg BMI Calculated 27.49 BSA Calculated 2.18 O2 Saturation 97 Physical Exam Deferred. Signatures Casey El II, D.OWilliam/pj-30 Electronically signed by : Casey El DO; Dec 09 2016 1:14PM HOME DELIVERY DRIVER * Casey El II, DO - 10/26/2016 12:00 AM CDT Assessment 1. Former smoker: 0 - 10 pack years (V15.82) (Z87.891) Atrial fibrillation/flutter. Plan Awaiting Holter monitor to see what is going to be done next with the Airport Engineer and most likely,Electrophysiology. We finally did get the results from the Holter which showed flutter and they will send him to see the Dehydrator. Reason For Visit patient in for hospital [...] Extra Strength 500 MG Oral Tablet; Therapy: (Recorded:87Yrj4322) to Recorded 6. Warfarin Sodium 5 MG Oral Tablet; Take as directed by [facility]; Therapy: 59Vin7737 to (Evaluate:41Mbd2221) Requested for: 14Jul2016 Recorded Allergies 1. Penicillins 2. Sulfa Drugs Vitals Recorded: 37Hsj8943 10:40AM Systolic 117, RUE, Sitting Diastolic 73, [...] in tactile fremitus. Signatures Casey El II, DWilliamOWilliam/pj-24 Electronically signed by : Casey El DO; Nov 06 2016 8:45AM HOME DELIVERY DRIVER documented in this encounter H&P Notes * [...] Panel; Status:Hold For - Manual Activation; Requested for:07Fpp9752; Hemoglobin A1C; Status:Hold For - Manual Activation; Requested for:83Zvd1548; SocHx: Former smoker: 0 - 10 pack years Former Smoker: Since tobacco use can have significant health risks, you are helping yourself and others stay healthy by no longer smoking.; Status:Complete; Done: 26Jgk9818 Reason For Visit H & P History [...] alcohol. 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 Colonoscopy in 2009. Pneumovax 2009. Prevnar 2015. Current Meds 1. Lisinopril 10 MG Oral Tablet; TAKE 1 TABLET BY MOUTH ONCE DAILY; Therapy: 61Pal3948 to (Evaluate:59Vbq1273) Requested for: 13Jul2016; Last Rx:13Jul2016 Ordered 2. Metoclopramide HCl - 5 MG Oral Tablet; TAKE 1 TABLET as needed; Therapy: 10Sep2014 to Requested for: 02Sep2016 Recorded 3. Metoprolol Tartrate 25 MG Oral Tablet; 1 prn a fib; Therapy: (Recorded:02Sep2016) to Requested for: 02Sep2016 Recorded 4. Tylenol Extra Strength 500 MG Oral Tablet; Therapy: (Recorded:33Aju5205) to Recorded 5. Warfarin Sodium 5 MG Oral Tablet; Take as directed by [facility]; Therapy: 28Jan2016 to (Evaluate:21Ejl5525) Requested for: 14Jul2016 Recorded Allergies 1. Penicillins [...] rash. /RECTAL: Done by urology. Results/Data PHQ-9 03Kjq9042 12:00AM Casey El Test Name Result Flag Reference PHQ-9 0 Alcohol & Drug Questionnaire for Adults 04Tor6316 12:00AM Casey El Test Name Result Flag Reference Alcohol & Drug Questionnaire for Adults 3 Nurse Note Pt given heel cups by dr el. #[id number] qty 2. mquam engine inspector Recorded as Task Date: 09/14/2016 01:01 PM, [...] if you have any questions! Cherelle Gomez [facility] #[id number] Kelly Walls - 15 Sep 2016 7:16 AM TASK REASSIGNED: Previously Assigned To Kelly Walls Michelle - 15 Sep 2016 9:00 AM TASK REASSIGNED: Previously Assigned To Casey El per dr el- dx plantar fasciitis M72.2 thanks. mquam engine inspector Signatures Casey El II D.Veena/la-3 Electronically signed by : Casey El DO; Sep 11 2016 1:25PM HOME DELIVERY DRIVER Electronically signed by : Casey El DO; Sep 16 2016 12:34PM HOME DELIVERY DRIVER documented in this encounter Plan of Treatment Not on file documented as of this encounter Visit Diagnoses Not on filedocumented in this encounter Care Teams Alteration Tailor Relationship Specialty Start Date End Date Casey El II, DO PCP - General 11/22/06 08/17/19 Stephani Aleman MD PCP - General Family Medicine 08/18/19 09/16/20 Bianka Loera RETAIL EVENT ASSISTANT [address] [facility] [address] [place] [address] PCP - General Nurse Practitioner Family 09/17/20 7/2 12/31 Desiree Patrick MD [address] [place] [address] PCP - General Electrophysiology 02/23/22 03/09/22 Desiree Patrick MD [address] [place] [address] 08/09/17 Farrah Nicole APRN,PARTS ANALYST [address] [place] [address] 08/09/17 Bry Echevarria MD [address] [place] [address] [place] [address] 08/09/17 Casey El II, DO 08/09/17 Shruti Vergara, RN RN Registered Nurse 08/27/20 documented as of this encounter Additional Source Comments PLEASE NOTE: Replies to this message will not be received.[facility]
--- OUTSIDE RECORDS SUMMARY | 2024-01-28 14:03 | XMS_ITS | Encounter Summary ---
Author Organization [employer] Address [address] [place] [address] Care Team Providers Care Hand Bander Name Role Phone Jamal CARLISLE DO, Robert William Primary Care Provide r Unavailable Desiree Patrick MD Unavailable Farrah Nicole APRN,SALES AND MERCHANDISING REPRESENTATIVE Unavailable [phone] Bry Echevarria MD Unavailable Jamal CARLISLE DO, Robert William Unavailable Unav Stephani Diaz MD Primary Care Provider [phone] Shruti Vergara RN Unavailable Unavailable Bianka Loera CNP Primary Care Provider [phone] Desiree Patrick MD Primary Care P rovider Encounter Details Date Type Department Care Team (Late st Contact Info) Description 08/22/2014 Historical Conversion [facility] Family Medicine [address] [place] [address] Casey Berry II, DO Social History Tobacco Use Types Packs/Day Years Used Date Smoking Tobacco: Never Assessed Sex and Gender Information Value Date Recorded Sex Assigned at Not on file Gender Identity Not on file Sexual Orientation Not on file documented as of this encounter Last Filed Vital Signs Vital Sign Reading Time Taken Comments Blood Pressure 145/88 08/22/2014 12:00 AM LAP MACHINE TENDER Pulse - - Temperature - - Respiratory Rate - - Oxygen Saturation - - Inhaled Oxygen Concentration - - Weight 90.7 kg (200 lb) 08/22/2014 12:00 AM LAP MACHINE TENDER Height 185.4 cm (6' 1) 08/22/2014 12:00 AM LAP MACHINE TENDER Body Mass Index 26.39 08/22/2014 12:00 AM LAP MACHINE TENDER documented in this encounter Plan of Treatment Not on file documented as of this encounter Visit Diagnoses Not on filedocumented in this encounter Care Teams Hand Bander Relationship Specialty Start Date End Date Casey Berry II, DO PCP - General 11/22/06 08/17/19 Stephani Aleman MD PCP - General Family Medicine 08/18/19 09/16/20 Bianka Loera CNP [address] [place] [address] [address] [place] [address] PCP - General Nurse Practitioner Family 09/17/2001/10 Desiree Patrick MD [address] [place] [address] PCP - General Electrophysiology 02/23/22 03/09/22 Desiree Patrick MD [address] [place] [address] 08/09/17 Farrah Nicole, FILM WRITER,SALES AND MERCHANDISING REPRESENTATIVE [address] [place] [address] 08/09/17 Bry cEhevarria MD [address] [place] [address] [facility] [phone] 08/09/17 Casey Berry II, DO 08/09/17 Shruti Vergara RN RN Registered Nurse 08/27/20 documented as of this encounter Additional Source Comments PLEASE NOTE: Replies to this message will not be received.[facility] and [facility]
--- OUTSIDE RECORDS SUMMARY | 2024-01-28 14:03 | XMS_ITS | Encounter Summary ---
Author Organization [employer] Address [address] [place] [address] Care Team Providers Care Plate Developer Name Role Phone Jamal CARLISLE DO, Robert William Primary Care Provide r Unavailable Desiree Patrick MD Unavailable Farrah Nicole APRN,NETWORK DESIGNER Unavailable Bry Echevarria MD Unavailable Jamal CARLISLE DO, Robert William Unavailable Unav Stephani Diaz MD Primary Care Provider [phone] Shruti Vergara RN Unavailable Unavailable Bianka Loera CNP Primary Care Provider Desiree Patrick MD Primary Care P rovider Encounter Details Date Type Department Care Team (Late st Contact Info) Description 09/10/2014 Historical Conversion [facility] Family Medicine [address] [place] [address] Casey Berry II, DO Social History Tobacco Use Types Packs/Day Years Used Date Smoking Tobacco: Never Assessed Sex and Gender Information Value Date Recorded Sex Assigned at Not on file Gender Identity Not on file Sexual Orientation Not on file documented as of this encounter Last Filed Vital Signs Vital Sign Reading Time Taken Comments Blood Pressure 130/80 09/10/2014 12:00 AM STEVEDORE DOCK Pulse - - Temperature - - Respiratory Rate - - Oxygen Saturation - - Inhaled Oxygen Concentration - - Weight 93.9 kg (207 lb 0.2 oz) 09/10/2014 12:00 AM STEVEDORE DOCK Height - - Body Mass Index 27.31 08/22/2014 12:00 AM STEVEDORE DOCK documented in this encounter Plan of Treatment Not on file documented as of this encounter Visit Diagnoses Not on filedocumented in this encounter Care Teams Plate Developer Relationship Specialty Start Date End Date Casey Berry II, DO PCP - General 11/22/06 08/17/19 Stephani Aleman MD PCP - General Family Medicine 08/18/19 09/16/20 Bianka Loera CNP [address] [place] [address] [address] [place] [phone] PCP - General Nurse Practitioner Family 09/17/2001/10 Desiree Patrick MD [address] [place] [address] PCP - General Electrophysiology 02/23/22 03/09/22 Desiree Patrick MD [address] [place] [address] 08/09/17 Farrah Nicole APRN,NETWORK DESIGNER [address] [place] [address] 08/09/17 Bry Echevarria MD [address] [place] [address] [place] [phone] 08/09/17 Casey Berry II, DO 08/09/17 Shruti Vergara RN RN Registered Nurse 08/27/20 documented as of this encounter Additional Source Comments PLEASE NOTE: Replies to this message will not be received.[facility] and [facility]
--- OUTSIDE RECORDS SUMMARY | 2024-01-28 14:03 | XMS_ITS | Encounter Summary ---
Author Organization [employer] Address [address] [place] [address] Care Team Providers Care Back Seam Stitcher Name Role Phone Jamal CARLISLE DO, Robert William Primary Care Provide r Unavailable Desiree Patrick MD Unavailable aFrrah Nicole APRN,OPEN HEARTH FURNACE LABORER Unavailable [phone] Bry Echevarria MD Unavailable Jamal CARLISLE DO, Robert William Unavailable Unav Stephani Diaz MD Primary Care Provider Shruti Vergara RN Unavailable Unavailable Bianak Loera CNP Primary Care Provider Desiree Patrick MD Primary Care P rovider Encounter Details Date Type Department Care Team (Late st Contact Info) Description 02/11/2016 Historical Conversion [facility] Family Medicine [address] [place] [address] Moon Maloney MD Social History Tobacco Use [...] on filedocumented in this encounter Care Teams Back Seam Stitcher Relationship Specialty Start Date End Date Casey Berry II, DO PCP - General 11/22/06 08/17/19 Stephani Aleman MD PCP - General Family Medicine 08/18/19 09/16/20 Bianka Loera CNP [address] [place] [phone] PCP - General Nurse Practitioner Family 09/17/2001/10 [place] [address] [place] [address] PCP - General Electrophysiology 02/23/22 03/09/22 Desiree Patrick MD [address] [place] [place] [facility] [address] 08/09/17 Farrah Nicole APRN,[facility] [address] [place] [facility] [place] [address] 08/09/17 Bry Echevarria MD [facility] [place] [address] 08/09/17 Casey Berry II, DO 08/09/17 Shruti Vergara RN RN Registered Nurse 08/27/20 documented as of this encounter Additional Source Comments PLEASE NOTE: Replies to this message will not be received.[facility] and [facility]
--- OUTSIDE RECORDS SUMMARY | 2024-01-28 14:03 | XMS_ITS | Encounter Summary ---
Author Organization [employer] Address [address] [place] [address] Care Team Providers Care Manager Meat Name Role Phone Jamal CARLISLE DO, Robert William Primary Care Provide r Unavailable Desiree Patrick MD Unavailable Farrah Nicole APRN,ORTHODONTIST SMALL BUSINESS OWNER Unavailable Bry Echevarria MD Unavailable Jamal CARLISLE DO, Robert William Unavailable Unav Stephani Diaz MD Primary Care Provider Shruti Vergara RN Unavailable Unavailable Bianka Loera CNP Primary Care Provider Desiree Patrick MD Primary Care P rovider Encounter Details Date Type Department Care Team (Late st Contact Info) Description 06/24/2016 Historical Conversion [facility] Family Medicine [address] [place] [address] Casey Berry II, DO Social History Tobacco [...] Comments Blood Pressure 115/76 06/24/2016 12:00 AM COMMERCIAL ESCROW ASSISTANT Pulse - - Temperature - - Respiratory Rate - - Oxygen Saturation - - Inhaled Oxygen Concentration - - Weight 91.5 kg (201 lb 11.5 oz) 016 12:00 AM COMMERCIAL ESCROW ASSISTANT Height - - Body Mass Index 26.61 [...] filedocumented in this encounter Care Teams Manager Meat Relationship Specialty Start Date End Date Casey Berry II, DO PCP - General 11/22/06 08/17/19 Stephani Aleman MD PCP - General Family Medicine 08/18/19 09/16/20 Bianka Loera CNP [address] [place] [phone] PCP - General Nurse Practitioner Family 09/17/2001/10 Desiree Patrick MD [address] [place] [address] PCP - General Electrophysiology 02/23/22 03/09/22 Desiree Patrick MD [address] [place] [address] 08/09/17 Farrah Nicole APRN,ORTHODONTIST SMALL BUSINESS OWNER [address] [place] [address] 08/09/17 Bry Echevarria MD [address] [place] [address] [place] [address] 08/09/17 Casey Berry II, DO 08/09/17 Shruti Vergara RN RN Registered Nurse 08/27/20 documented as of this encounter Additional Source Comments PLEASE NOTE: Replies to this message will not be received.[facility]
--- OUTSIDE RECORDS SUMMARY | 2024-01-28 14:03 | XMS_ITS | Encounter Summary ---
Author Organization [employer] Address [address] [place] [address] Care Team Providers Care Risk Control Director Name Role Phone Jamal CARLISLE DO, Robert William Primary Care Provide r Unavailable Desiree Patrick MD Unavailable Farrah Nicole APRN,CENSUS TAKER Unavailable Bry Echevarria MD Unavailable Jamal CARLISLE DO, Robert William Unavailable Unav Stephani Diaz MD Primary Care Provider Shruti Vergara RN Unavailable Unavailable Bianka Loera CNP Primary Care Provider Desiree Patrick MD Primary Care P rovider Encounter Details Date Type Department Care Team (Late st Contact Info) Description 01/28/2016 Historical Conversion [facility] Family Medicine [address] [place] [address] Social History Tobacco Use Types Packs/Day Years [...] as of this encounter Procedure Notes * [facility], GENERICPROVIDER - 01/28/2016 12:00 AM CDTAssociated Order(s): [...] daily, Reglan 5 mg TID PRN, and mg BID for pain in right knee. [...] by:Razia Duarte RN Jan 28 2016 12:46PM STRINGED INSTRUMENT REPAIRER documented in this encounter Plan of Treatment Not on file documented as of this encounter Procedures Procedure Name Priority Date/Time Associated Diagnosis Comments ANTICOAGULATION 01/28/2016 documented in this encounter Results * ANTICOAGULATION (01/28/2016) Narrative Procedure Note [facility], GENERICPROVIDER - 01/28/2016 12:00 AM CDT Name: CRISTIAN WILKINSN: [id number] : 1945 DOS: 01/28/2016 Cristian ia a [...] and approximately 200 lbs. [facility] bleeding or stroke. He lives [...] summer as he is apart of a [employer]. Drinks green tea onoccasion; encouraged to avoid [...] by:Razia Duarte RN Jan 28 2016 12:46PM STRINGED INSTRUMENT REPAIRER Genericprovider [facility] OTHER documented in this encounter Visit Diagnoses Not on filedocumented in this encounter Care Teams Risk Control Director Relationship Specialty Start Date End Date Casey Berry II, DO PCP - General 11/22/06 08/17/19 Stephani Aleman MD PCP - General Family Medicine 08/18/19 09/16/20 Bianka Loera SHIPPING CLERK PACKING [address] [place] [phone] PCP - General Nurse Practitioner Family 09/17/2001/10 Desiree Patrick MD [address] [place] [address] PCP - General Electrophysiology 02/23/22 03/09/22 Desiree Patrick MD [address] [place] [address] 08/09/17 Farrah Nicole APRN,CENSUS TAKER [address] [place] [address] 08/09/17 Bry Echevarria MD [address] [place] [address] 08/09/17 Casey Berry II, DO 08/09/17 Shruti Vergara RN RN Registered Nurse 08/27/20 documented as of this encounter Additional Source Comments PLEASE NOTE: Replies to this message will not be received.[facility] and [facility]
--- OUTSIDE RECORDS SUMMARY | 2024-01-28 14:03 | XMS_ITS | Encounter Summary ---
Author Organization [facility] Address [address] [place] [address] Care Team Providers Care Theatrical Scenic Designer Name Role Phone Jamal CARLISLE DO, Robert William Primary Care Provide r Unavailable Desiree Patrick MD Unavailable Farrah Nicole APRN,SPRAY BOOTH OPERATOR Unavailable [phone] Bry Echevarria MD Unavailable [phone] Jamal CARLISLE DO, Robert William Unavailable Unav Stephani Diaz MD Primary Care Provider Shruti Vergara RN Unavailable Unavailable Bianka Loera CNP Primary Care Provider Desiree Patrick MD Primary Care P rovider Encounter Details Date Type Department Care Team (Late st Contact Info) Description [address] [address] Social History Tobacco Use Types Packs/Day Years [...] on filedocumented in this encounter Care Teams Theatrical Scenic Designer Relationship Specialty Start Date End Date Casey Berry II, DO PCP - General 11/22/06 08/17/19 Stephani Aleman MD PCP - General Family Medicine 08/18/19 09/16/20 Bianka Loera RN CLINICAL RESOURCE [address] [place] [address] [address] [place] [phone] PCP - General Nurse Practitioner Family 09/17/20 712/31 Desiree Patrick MD [address] [place] [address] PCP - General Electrophysiology 02/23/22 03/09/22 Desiree Patrick MD [address] [place] [address] 08/09/17 Farrah Nicole APRN,SPRAY BOOTH OPERATOR [address] [place] [address] 08/09/17 Bry Echevarria MD [address] [place] [address] 08/09/17 Casey Berry II, DO 08/09/17 Shruti Vergara RN RN Registered Nurse 08/27/20 documented as of this encounter Additional Source Comments PLEASE NOTE: Replies to this message will not be received.[facility] and [facility]
--- OUTSIDE RECORDS SUMMARY | 2024-01-28 14:03 | XMS_ITS | Encounter Summary ---
Author Organization [employer] Address [address] [place] [address] Care Team Providers Care Freelance Web Designer Name Role Phone Jamal CARLISLE DO, Robert William Primary Care Provide r Unavailable Desiree Patrick MD Unavailable Farrah Nicole APRN,STAFF NUCLEAR WEAPONS OFFICER Unavailable Bry Echevarria MD Unavailable Jamal CARLISLE DO, Robert William Unavailable Unav Stephani Diaz MD Primary Care Provider Shruti Vergara RN Unavailable Unavailable Bianka Loera CNP Primary Care Provider Desiree Patrick MD Primary Care P rovider Encounter Details Date Type Department Care Team (Late st Contact Info) Description 08/27/2016 Historical Conversion [facility] Family Medicine [address] [place] [address] Moon Maloney MD Social History Tobacco Use [...] Comments Blood Pressure 175/101 08/27/2016 12:00 AM QLIKVIEW DEVELOPER Pulse - - Temperature - - Respiratory Rate - - Oxygen Saturation - - Inhaled Oxygen Concentration - - Weight 95.7 kg (210 lb 15.7 oz) 017 12:00 AM QLIKVIEW DEVELOPER Height - - Body Mass Index 27.84 [...] on filedocumented in this encounter Care Teams Freelance Web Designer Relationship Specialty Start Date End Date Casey Berry II, DO PCP - General 11/22/06 08/17/19 Stephani Aleman MD PCP - General Family Medicine 08/18/19 09/16/20 Bianka Loera CNP [address] [place] [phone] PCP - General Nurse Practitioner Family 09/17/2001/10 [place] [address] [place] [address] PCP - General Electrophysiology 02/23/22 03/09/22 Desiree Patrick MD [address] [place] [address] 08/09/17 Farrah Nicole APRN,[facility] [address] [place] [address] 08/09/17 Bry Echevarria MD [address] [place] [address] [place] [address] 08/09/17 Casey Berry II, DO 08/09/17 Shruti Vergara RN RN Registered Nurse 08/27/20 documented as of this encounter Additional Source Comments PLEASE NOTE: Replies to this message will not be received.[facility] and [facility]
--- OUTSIDE RECORDS SUMMARY | 2024-01-28 14:03 | XMS_ITS | Encounter Summary ---
Author Organization [employer] Address [address] [place] [address] Care Team Providers Care Junior Sales Representative Name Role Phone Jamal CARLISLE DO, Robert William Primary Care Provide r Unavailable Desiree Patrick MD Unavailable Farrah Nicole APRN,MANAGER COLLEGE Unavailable Bry Echevarria MD Unavailable [phone] Jamal CARLISLE DO, Robert William Unavailable Unav Stephani Diaz MD Primary Care Provider Shruti Vergara RN Unavailable Unavailable Bianka Loera CNP Primary Care Provider [phone] Desiree Patrick MD Primary Care P rovider Encounter Details Date Type Department Care Team (Late st Contact Info) Description 08/22/2014 Historical Conversion [facility] Family Medicine [address] [place] [address] Casey Berry II, DO Social History Tobacco [...] AND PHYSICAL CRISTIAN BLEDSOE : 1945 HX: [id number] DOS: 08/22/2014 CHIEF COMPLAINT: Routine physical. HISTORY [...] alcohol. 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 ALLERGIES: PENICILLIN AND SULFA. HEALTH CARE MAINTENANCE: [...] by:Casey Berry D.O. Sep 06 2014 7:40AM IMPLEMENT MECHANIC documented in this encounter Plan of Treatment Not on file documented as of this encounter Visit Diagnoses Not on filedocumented in this encounter Care Teams Junior Sales Representative Relationship Specialty Start Date End Date Casey Berry II, DO PCP - General 11/22/06 08/17/19 Stephani Aleman MD PCP - General Family Medicine 08/18/19 09/16/20 Bianka Loera CNP [address] [facility] [address] [place] [address] PCP - General Nurse Practitioner Family 09/17/2001/10 Desiree Patrick MD [address] [facility] [place] [address] PCP - General Electrophysiology 02/23/22 03/09/22 Desiree Patrick MD [address] [facility] [place] [address] 08/09/17 Farrah Nicole, SHIPPING WEIGHER,MANAGER COLLEGE [address] [facility] [place] [address] 08/09/17 Bry Echevarria MD [facility] [place] [address] 08/09/17 Casey Berry II, DO 08/09/17 Srhuti Vergara RN RN Registered Nurse 08/27/20 documented as of this encounter Additional Source Comments PLEASE NOTE: Replies to this message will not be received.[facility]
--- OUTSIDE RECORDS SUMMARY | 2024-01-28 14:03 | XMS_ITS | Encounter Summary ---
Author Organization [employer] Address [address] [place] [address] Care Team Providers Care Drip Pumper Name Role Phone Jamal CARLISLE DO, Robert William Primary Care Provide r Unavailable Desiree Patrick MD Unavailable Farrah Nicole APRN,AIRBORNE OPERATIONS SUPERINTENDENT Unavailable Bry Echevarria MD Unavailable Jaaml CARLISLE DO, Robert William Unavailable Unav Stephani Diaz MD Primary Care Provider Shruti Vergara RN Unavailable Unavailable Bianka Loera CNP Primary Care Provider [phone] Desiree Patrick MD Primary Care P rovider Encounter Details Date Type Department Care Team (Late st Contact Info) Description 08/22/2014 Historical Conversion [facility] Family Medicine [address] [place] [id number] Casey Berry II, DO Social History Tobacco Use Types Packs/Day Years Used Date Smoking Tobacco: Never Assessed Sex and Gender Information Value Date Recorded Sex Assigned at Not on file Gender Identity Not on file Sexual Orientation Not on file documented as of this encounter Progress Notes * Casey Berry II, DO - 01/29/2015 12:00 AM CDT CRISTIAN BLEDSOE : 1945 HX: [id number] DOS: 01/29/2015 CHIEF COMPLAINT: Follow up after [...] any symptoms. PLAN: 1. As above. Casey eBrry II, D.O./pj- 30 Electronically signed by:Casey Berry D.O. Feb 11 2015 7:55AM COMPUTER METEOROLOGIST * Casey Berry II, DO - 09/10/2014 12:00 AM CST CRISTIAN BLEDSOE : 1945 HX: [id number] DOS: 09/10/2014 CHIEF COMPLAINT: Follow up of [...] by:Casey Berry D.O. Sep 26 2014 3:33PM COMPUTER METEOROLOGIST documented in this encounter Miscellaneous Notes * [...] you have any questions. Casey Berry DO [facility] Electronically signed by:DEYANIRA FRANCOIS Dec 06 2014 9:03AM COMPUTER METEOROLOGIST documented in this encounter Plan of Treatment Not on file documented as of this encounter Visit Diagnoses Not on filedocumented in this encounter Care Teams Drip Pumper Relationship Specialty Start Date End Date Casey Berry II, DO PCP - General 11/22/06 08/17/19 Stephani Aleman MD PCP - General Family Medicine 08/18/19 09/16/20 Bianka Loera, [employer] [address] [place] [phone] PCP - General Nurse Practitioner Family 09/17/2001/10 Desiree Patrick MD [address] [place] [address] PCP - General Electrophysiology 02/23/22 03/09/22 Desiree Patrick MD [address] [place] [address] 08/09/17 Farrah Nicole APRN,AIRBORNE OPERATIONS SUPERINTENDENT [address] [place] [address] 08/09/17 Bry Echevarria MD [address] [place] [address] [place] [address] 08/09/17 Casey Berry II, DO 08/09/17 Shruti Vergara RN RN Registered Nurse 08/27/20 documented as of this encounter Additional Source Comments PLEASE NOTE: Replies to this message will not be received.[facility]
--- OUTSIDE RECORDS SUMMARY | 2024-01-28 14:03 | XMS_ITS | Encounter Summary ---
Author Organization [facility] Address [address] [place] [address] Care Team Providers Care Search Marketing Specialist Name Role Phone Jamal CARLISLE DO, Robert William Primary Care Provide r Unavailable Desiree Patrick MD Unavailable Farrah Nicole APRN,ALEX Unavailable Bry Echevarria MD Unavailable Jamal CARLISLE DO, Robert William Unavailable Unav ailable Stephani Aleman MD Primary Care Provider [phone] Shruti Vergara RN Unavailable Unavailable Bianka Loera CNP Primary Care Provider [phone] Desiree Patrick MD Primary Care P rovider Encounter Details Date Type Department Care Team (Late st Contact Info) Description 12/01/2006 HIM Tile Presser Generic Tile Presser [address] [place] [address] Social History Tobacco Use Types [...] on filedocumented in this encounter Care Teams Search Marketing Specialist Relationship Specialty Start Date End Date Casey Berry II, DO PCP - General 11/22/06 08/17/19 Stephani Aleman MD PCP - General Family Medicine 08/18/19 09/16/20 Bianka Loera CNP [address] [place] [address] PCP - General Nurse Practitioner Family 09/17/2001/10 Desiree Patrick MD [address] [place] [facility] [place] [address] PCP - General Electrophysiology 02/23/22 03/09/22 Desiree Patrick MD [address] [place] [address] 08/09/17 Farrah Nicole APRN,WHIPPER BEATER [address] [place] [address] 08/09/17 Bry Echevarria MD [address] [place] [phone] 08/09/17 Casey Berry II, DO 08/09/17 Shruti Vergara, RN RN Registered Nurse 08/27/20 documented as of this encounter Additional Source Comments PLEASE NOTE: Replies to this message will not be received.[facility] and [facility]
--- OUTSIDE RECORDS SUMMARY | 2024-01-28 14:03 | XMS_ITS | Encounter Summary ---
Author Organization [facility] Address [address] [place] [address] Care Team Providers Care Oracle Financial Application Developer Name Role Phone Jamal CARLISLE DO, Robert William Primary Care Provide r Unavailable Desiree Patrick MD Unavailable Farrah Nicole APRN,POLICY CHECKER Unavailable Bry Echevarria MD Unavailable [phone] Jamal CARLISLE DO, Robert William Unavailable Unav Stephani Diaz MD Primary Care Provider Shruti Vergara RN Unavailable Unavailable Bianka Loera CNP Primary Care Provider Desiree Patrick MD Primary Care P rovider Encounter Details Date Type Department Care Team (Late st Contact Info) Description 11/26/2015 HIM Project Control Analyst [facility] Heart & Vascular [address] [address] Rajeev Barlow MD Social History [...] Order(s): MYOCARDIAL PERFUSION PHARMACOLOGIC STRESS PERFORMED BY: [facility] [email or web address] [facility] [place], [place] SITE: [place] INTERPRETED BY: [facility] [place], [place] PHARMACOLOGIC MYOCARDIAL PERFUSION SCAN Study supervised [...] TYPE: Rest/stress, single isotope gated SPECT imaging. [id number]: 12.5 mCi (IV) for the rest injection. [id number]: 33.1 mCi (IV) for the stress injection. [...] function. Note: This study was performed by [facility] [employer]. Only the interpretation was performed at the [facility] [place]. Electronically signed Rajeev Barlow MD, [facility] Nutrition Aides Teacher , 03:10 P A dsc/Doc#: [id number] cc: documented in this encounter Plan of Treatment Not on file documented as of this encounter Procedures Procedure Name Priority Date/Time Associated Diagnosis Comments MYOCARDIAL PERFUSION PHARMACOLOGIC STRESS 11/26/2015 documented in this encounter Results * MYOCARDIAL PERFUSION PHARMACOLOGIC STRESS (11/26/2015) Anatomical Region Laterality Modality Other 11/26/2015 Narrative Procedure Note Rajeev Barlow MD - 11/26/2015 12:00 AM CDT PERFORMED BY: [employer] [place], [place] SITE: [place], [place] INTERPRETED BY: [place], [place] PHARMACOLOGIC MYOCARDIAL PERFUSION SCAN Study supervised [...] TYPE: Rest/stress, single isotope gated SPECT imaging. [id number]: 12.5 mCi (IV) for the rest injection. [id number]: 33.1 mCi (IV) for the stress injection. [...] function. Note: This study was performed by [facility] [employer]. Only theinterpretation was performed at the [facility]. Electronically signed Rajeev Barlow MD, [facility] Nutrition Aides Teacher , 03:10 P A dsc/Doc#: [id number] cc: Rajeev Barlow MD CAR NUC MED/STRESS documented in this encounter Visit Diagnoses Not on filedocumented in this encounter Care Teams Oracle Financial Application Developer Relationship Specialty Start Date End Date Casey Berry II, DO PCP - General 11/22/06 08/17/19 Stephani Aleman MD PCP - General Family Medicine 08/18/19 09/16/20 Bianka Loera CNP [address] [place] [address] PCP - General Nurse Practitioner Family 09/17/2001/10 Desiree Patrick MD [address] [place] [address] PCP - General Electrophysiology 02/23/22 03/09/22 Desiree Patrick MD [address] [facility] [place] [address] 08/09/17 Farrah Nicole APRN,POLICY CHECKER [address] [place] [address] 08/09/17 Bry Echevarria MD [address] [place] [address] 08/09/17 Casey Berry II, DO 08/09/17 Shruti Vergara RN RN Registered Nurse 08/27/20 documented as of this encounter Additional Source Comments PLEASE NOTE: Replies to this message will not be received.[facility]
--- OUTSIDE RECORDS SUMMARY | 2024-01-28 14:03 | XMS_ITS | Encounter Summary ---
Author Organization [facility] Address [address] [place] [address] Care Team Providers Care Diving Board Assembler Name Role Phone Jamal CARLISLE DO, Robert William Primary Care Provide r Unavailable Desiree Patrick MD Unavailable Farrah Nicole APRN,SHORTS SIFTER Unavailable Bry Echevarria MD Unavailable Jamal CARLISLE DO, Robert William Unavailable Unav Stephani Diaz MD Primary Care Provider Shruti Vergara RN Unavailable Unavailable Bianka Loera CNP Primary Care Provider [phone] Desiree Patrick MD Primary Care P rovider Encounter Details Date Type Department Care Team (Late st Contact Info) Description 11/19/2015 HIM Body And Fender Mechanic Apprentice [facility] Vascular [place] [address] [place] [address] Dionisio Meneses MD [address] [place] [address] Social History Tobacco Use Types [...] ADULT WITH OR WITHOUT CONTRAST PERFORMED BY: [place] SITE: [place], [place] INTERPRETED BY: [facility] [place], [place] TRANSTHORACIC ECHOCARDIOGRAM REPORT REFERRING DIAGNOSIS: Atrial [...] comparison. Note: This study was performed by [employer] for [place]. Only the interpretation wasperformed at the [facility]. Electronically signed Dionisio Meneses MD, [facility] Outreach Analyst , 04:04 P A vd/Doc#: [id number] cc: Adult Normal Value Adult Patient Values [...] kg Blood pressure: 126/75 Previous study: -- Darkroom Worker: Lisa documented in this encounter Plan of [...] - 11/19/2015 12:00 AM CDT PERFORMED BY: [place] SITE: [place] INTERPRETED BY: [facility] [place], [place] TRANSTHORACIC ECHOCARDIOGRAM REPORT REFERRING DIAGNOSIS: Atrial [...] comparison. Note: This study was performed by [facility].Only the interpretation was performed at the [facility]. Electronically signed Dionisio Meneses MD, [facility] Outreach Analyst , 04:04 P A vd/Doc#: [id number] cc: Adult Normal Value Adult Patient Values [...] kg Blood pressure: 126/75 Previous study: -- Darkroom Worker: Lisa Dionisio Meneses MD CAR ULTRASOUND documented in this encounter Visit Diagnoses Not on filedocumented in this encounter Care Teams Diving Board Assembler Relationship Specialty Start Date End Date Casey Berry II, DO PCP - General 11/22/06 08/17/19 Stephani Aleman MD PCP - General Family Medicine 08/18/19 09/16/20 Bianka Loera PATCHER WOOD WELDER [address] [place] [address] [address] [place] [phone] PCP - General Nurse Practitioner Family 09/17/20 712/31 Desiree Patrick MD [address] [place] [address] PCP - General Electrophysiology 02/23/22 03/09/22 Desiree Patrick MD [address] [place] [address] 08/09/17 Farrah Nicole APRN,SHORTS SIFTER [address] [place] [phone] 08/09/17 Bry Echevarria MD [address] [place] [place] [phone] 08/09/17 Casey Berry II, DO 08/09/17 Shruti Vergara RN RN Registered Nurse 08/27/20 documented as of this encounter Additional Source Comments PLEASE NOTE: Replies to this message will not be received.[facility]
--- OUTSIDE RECORDS SUMMARY | 2024-01-28 14:03 | XMS_ITS | Encounter Summary ---
Author Organization [employer] Address [address] [place] [address] Care Team Providers Care Examination Supervisor Name Role Phone Jamal CARLISLE DO, Robert William Primary Care Provide r Unavailable Desiree Patrick MD Unavailable Farrah Nicole APRN,LEAF SIZE PICKER Unavailable Bry Echevarria MD Unavailable Jamal CARLISLE DO, Robert William Unavailable Unav Stephani Diaz MD Primary Care Provider Shruti Vergara RN Unavailable Unavailable Bianka Loera CNP Primary Care Provider Desiree Patrick MD Primary Care P rovider Encounter Details Date Type Department Care Team (Late st Contact Info) Description 01/31/2016 Historical Conversion [facility] Family Medicine [address] [place] [phone] Social History Tobacco Use Types Packs/Day Years [...] as of this encounter Procedure Notes * [facility], DON[facility] - 01/14/2017 12:00 AM CDTAssociated Order(s): ANTICOAGULATION [facility] Name: CRISTIAN BLEDSOE : 1945 [...] by:Tiffani Carrero RN Jan 14 2017 11:11AM PASTEURIZER HELPER * [facility] MICHELLEPROVIBRANDO - 12/23/2016 12:00 AM CDTAssociated Order(s): ANTICOAGULATION [facility]tico[facility] Name: CRISTIAN BLEDSOE : 1945 [...] by:Tiffani Carrero RN Dec 23 2016 11:30AM PASTEURIZER HELPER * [facility], GENERICPROVIDER - 12/02/2016 12:00 AM CDTAssociated Order(s): ANTICOAGULATION [facility] Name: CRISTIAN BLEDSOE : 1945 [...] by:Tiffani Carrero RN Dec 02 2016 4:10PM PASTEURIZER HELPER * [facility], GENERICPROVIDER - 11/17/2016 12:00 AM CDTAssociated Order(s): ANTICOAGULATION [facility] Name: CRISTIAN BLEDSOE : 1945 [...] has an appointment next week with an logistics service representative to discuss a possible ablation. Patient denies any medication changes. INR tested today is therapeutic at 2.7 with the recommended range of 2.0 to 3.0. Patient will continue Coumadin at 5 mg daily with an INR recheck in two weeks. Patient verbalizes understanding. Electronically signed by:Tiffani Carrero RN Nov 17 2016 9:36AM PASTEURIZER HELPER * [facility] GENERICPROBoontyDER - 11/10/2016 12:00 AM CDTAssociated Order(s): ANTICOAGULATION [facility] Name: CRISTIAN BLEDSOE : 1945 [...] by:Tiffani Carrero RN Nov 10 2016 2:41PM PASTEURIZER HELPER * [facility] GENERICPROVIDER - 10/29/2016 12:00 AM CDTAssociated Order(s): ANTICOAGULATION [facility] Name: CRISTIAN BLEDSOE : 1945 DOS: [...] by:Tiffani Carrero RN Oct 29 2016 3:44PM PASTEURIZER HELPER * [facility] - 10/23/2016 12:00 AM CDTAssociated Order(s): ANTICOAGULATION [facility] Name: CRISTIAN BLEDSOE : 1945 DOS: 10/23/2016 This is a patient of Dr. Berry. He is taking anticoagulation for a diagnosis of atrial fibrillation.He is scheduled for a prostate biopsy today at the [facility] with Dr. Maloney. Patient had his INR checked in the [facility] lab prior to his procedure [...] by:Tiffani Carrero RN Oct 26 2016 9:49AM PASTEURIZER HELPER * [facility]LE AUSTINPROLUBNA - 10/13/2016 12:00 AM CDTAssociated Order(s): ANTICOAGULATION [facility] Name: CRISTIAN BLEDSOE : 1945 [...] will have his INR checked at the [facility] prior to his biopsy which [...] by:Tiffani Carrero RN Oct 13 2016 12:13PM PASTEURIZER HELPER AMENDMENTS: 1. Patient states that he was in the [facility] ER on October 08 with [...] by:Tiffani Carrero RN Oct 13 2016 12:36PM PASTEURIZER HELPER * [facility], GENERICPROLUBNA - 09/15/2016 12:00 AM CSTAssociated Order(s): ANTICOAGULATION Anticoagulation [facility] Name: CRISTIAN BLEDSOE : 1945 DOS: [...] Chidi, Wednesday and 5 mg all other days with a recheck in one month. He verbalizes understanding. Electronically signed by:Tiffani Carrero RN Sep 15 2016 2:04PM PASTEURIZER HELPER * [facility], GENERICPROVIDER - 08/18/2016 12:00 AM CSTAssociated Order(s): ANTICOAGULATION Anticoagulation [facility] Name: CRISTIAN BLEDSOE : 1945 DOS: [...] by:Tiffani Carrero RN Aug 18 2016 2:21PM PASTEURIZER HELPER * [facility] GENERICPROVIBRANDO - 07/28/2016 12:00 AM CSTAssociated Order(s): ANTICOAGULATION Anticoagulation [facility] Name: CRISTIAN BLEDSOE : 1945 DOS: [...] by:Tiffani Carrero RN Jul 28 2016 11:06AM PASTEURIZER HELPER * [facility], GENERICPROVIDER - 07/14/2016 12:00 AM CSTAssociated Order(s): ANTICOAGULATION Anticoagulation [facility] Name: CRISTIAN BLEDSOE : 1945 DOS: [...] by:Tiffani Carrero RN Jul 14 2016 11:21AM PASTEURIZER HELPER * [facility], GENERICPROVIBRANDO - 06/30/2016 12:00 AM CSTAssociated Order(s): ANTICOAGULATION Anticoagulation [facility] Name: CRISTIAN BLEDSOE : 1945 DOS: [...] by:Tiffani Carrero RN Jun 30 2016 9:24AM PASTEURIZER HELPER * [facility] - 05/20/2016 12:00 AM CSTAssociated Order(s): ANTICOAGULATION Anticoagulation [facility] Name: CRISTIAN BLEDSOE : 1945 DOS: [...] by:Tiffani Carrero RN May 20 2016 3:59PM PASTEURIZER HELPER * [facility] MICHELLEPROGINABRANDO - 04/15/2016 12:00 AM CDTAssociated Order(s): ANTICOAGULATION [facility] Name: CRISTIAN BLEDSOE : 1945 [...] by:Tiffani Carrero RN Apr 15 2016 5:55PM PASTEURIZER HELPER * [facility] MICHELLEPROVIBRANDO - 03/18/2016 12:00 AM CDTAssociated Order(s): ANTICOAGULATION [facility] Name: CRISTIAN BLEDSOE : 1945 [...] by:Tiffani Carrero RN Mar 18 2016 9:42AM PASTEURIZER HELPER * [facility] AUSTINPROLUBNA - 03/09/2016 12:00 AM [...] Tiffani Carrero RN; Mar 09 2016 9:59AM PASTEURIZER HELPER * [facility] MICHELLEPROVIBRANDO - 02/27/2016 12:00 AM CDTAssociated Order(s): ANTICOAGULATION [facility] Name: CRISTIAN BLEDSOE : 1945 [...] by:Tiffani Carrero RN Feb 27 2016 12:04PM PASTEURIZER HELPER * [facility] GENERICPROVIBRANDO - 02/12/2016 12:00 AM CDTAssociated Order(s): ANTICOAGULATION [facility] Name: CRISTIAN BLEDSOE : 1945 [...] by:Tiffani Carrero RN Feb 12 2016 9:02AM PASTEURIZER HELPER * [facility] GENERICPROVIBRANDO - 02/04/2016 12:00 AM CDTAssociated Order(s): ANTICOAGULATION [facility]ticoagulation [facility] Name: CRISTIAN BLEDSOE : 1945 DOS: [...] by:Tiffani Carrero RN Feb 04 2016 9:45AM PASTEURIZER HELPER * [facility], GENERICPROVIDER - 01/31/2016 12:00 AM CDTAssociated Order(s): [...] by:Carlene Hargrove RN Jan 31 2016 2:45PM PASTEURIZER HELPER documented in this encounter Plan of Treatment [...] (01/14/2017) Narrative Procedure Note [facility], GENERICPROVIDER - 01/14/2017 12:00 AM CDT [facility]tico[facility] Name: CRISTIAN BLEDSOE : 1945 [...] by:Tiffani Carrero RN Jan 14 2017 11:11AM PASTEURIZER HELPER [facility] OTHER * ANTICOAGULATION (12/23/2016) Narrative Procedure Note [facility], [facility] - 12/23/2016 12:00 AM CDT Anticoagulation [facility] Name: CRISTIAN BLEDSOE : 1945 DOS: 12/23/2016 This is a patient of Dr. Berry. He is here today for an anticoagulationassessment and INR check for a diagnosis of atrial fibrillation. Patientstates that he has been feeling well. He reports [facility] and will begin [facility] on January [...] by:Tiffani Carrero RN Dec 23 2016 11:30AM PASTEURIZER HELPER [facility] OTHER * ANTICOAGULATION (12/02/2016) Narrative Procedure Note [facility] - 12/02/2016 12:00 AM CDT Anticoagulation [facility] Name: CRISTIAN BLEDSOE : 1945 DOS: 12/02/2016 This is a patient of Dr. Berry. He is here today for an anticoagulationassessment and INR check for a diagnosis of atrial fibrillation. Patientstates that he has been feeling well. He reports that he will met with at [facility] and has an [...] by:Tiffani Carrero RN Dec 02 2016 4:10PM PASTEURIZER HELPER [facility] OTHER * ANTICOAGULATION (11/17/2016) Narrative Procedure Note [facility] - 11/17/2016 12:00 AM CDT Anticoagulation [facility] Name: CRISTIAN BLEDSOE : 1945 DOS: [...] by:Tiffani Carrero RN Nov 17 2016 9:36AM PASTEURIZER HELPER [facility] * [facility]TICO[facility]ULATION (11/10/2016) Narrative Procedure Note [facility] - 11/10/2016 12:00 AM CDT Anticoagulation [facility] Name: CRISTIAN BLEDSOE : 1945 DOS: 11/10/2016 This is a patient of Dr. Berry. He is here today for an anticoagulationassessment and INR check for a diagnosis of atrial fibrillation. Patientstates that he has been feeling well. He reports that he has beendiagnosis with prostate cancer and will be meeting with Dr. [facility] to find out information regarding radiation therapy. Patientdenies any medication changes. INR tested today is elevated at 3.6 withthe recommended range of 2.0 to 3.0. Patient will adjust Coumadin with ahold today (11/10), then take 5 mg daily with an INR recheck in one week.Patient verbalizes understanding. Electronically signed by:Tiffani Carrero RN Nov 10 2016 2:41PM PASTEURIZER HELPER [facility] OTHER * ANTICOAGULATION (10/29/2016) Narrative Procedure Note [facility] - 10/29/2016 12:00 AM CDT Anticoagulation [facility] Name: CRISTIAN BLEDSOE : 1945 DOS: [...] by:Tiffani Carrero RN Oct 29 2016 3:44PM PASTEURIZER HELPER [facility] OTHER * ANTICOAGULATION (10/23/2016) Narrative Procedure Note [facility] - 10/23/2016 12:00 AM CDT Anticoagulation [facility] Name: CRISTIAN BLEDSOE : 1945 DOS: 10/23/2016 This is a patient of Dr. Berry. He is taking anticoagulation for adiagnosis of atrial fibrillation. He is scheduled for a prostate biopsytoday at the [facility] with Dr. Maloney. Patient had his INR checkedin the [facility] lab prior to his procedure [...] by:Tiffani Carrero RN Oct 26 2016 9:49AM PASTEURIZER HELPER [facility] OTHER * ANTICOAGULATION (10/13/2016) Narrative Procedure Note [facility] - 10/13/2016 12:00 AM CDT [facility]tico[facility] Name: CRISTIAN BLEDSOE : 1945 [...] [facility] which is scheduled [...] by:Tiffani Carrero RN Oct 13 2016 12:13PM PASTEURIZER HELPER AMENDMENTS: 1. Patient states that he was in the [facility] ER on October 08 with [...] by:Tiffani Carrero RN Oct 13 2016 12:36PM PASTEURIZER HELPER [facility] OTHER * ANTICOAGULATION (09/15/2016) Narrative Procedure Note [facility], [facility] - 09/15/2016 12:00 AM CST [facility]tico[facility] Name: CRISTIAN BLEDSOE : 1945 [...] by:Tiffani Carrero RN Sep 15 2016 2:04PM PASTEURIZER HELPER [facility] OTHER * ANTICOAGULATION (08/18/2016) Narrative Procedure Note [facility] - 08/18/2016 12:00 AM CST Anticoagulation [facility] Name: CRISTIAN BLEDSOE : 1945 DOS: [...] by:Tiffani Carrero RN Aug 18 2016 2:21PM PASTEURIZER HELPER [facility] OTHER * ANTICOAGULATION (07/28/2016) Narrative Procedure Note [facility] - 07/28/2016 12:00 AM CST Anticoagulation [facility] Name: CRISTIAN BLEDSOE : 1945 DOS: [...] by:Tiffani Carrero RN Jul 28 2016 11:06AM PASTEURIZER HELPER [facility] OTHER * ANTICOAGULATION (07/14/2016) Narrative Procedure Note [facility] - 07/14/2016 12:00 AM CST Anticoagulation [facility] Name: CRISTIAN BLEDSOE : 1945 DOS: [...] by:Tiffani Carrero RN Jul 14 2016 11:21AM PASTEURIZER HELPER [facility] OTHER * ANTICOAGULATION (06/30/2016) Narrative Procedure Note [facility] - 06/30/2016 12:00 AM CST Anticoagulation [facility] Name: CRISTIAN BLEDSOE : 1945 DOS: [...] by:Tiffani Carrero RN Jun 30 2016 9:24AM PASTEURIZER HELPER [facility] OTHER * ANTICOAGULATION (05/20/2016) Narrative Procedure Note [facility], [facility] - 05/20/2016 12:00 AM CST Anticoagulation [facility] Name: CRISTIAN BLEDSOE : 1945 DOS: [...] by:Tiffani Carrero RN May 20 2016 3:59PM PASTEURIZER HELPER [facility] OTHER * ANTICOAGULATION (04/15/2016) Narrative Procedure Note [facility] - 04/15/2016 12:00 AM CDT [facility]tico[facility] Name: CRISTIAN BLEDSOE : 1945 DOS: [...] by:Tiffani Carrero RN Apr 15 2016 5:55PM PASTEURIZER HELPER [facility] OTHER * ANTICOAGULATION (03/18/2016) Narrative Procedure Note [facility] - 03/18/2016 12:00 AM CDT Anticoagulation [facility] Name: CRISTAIN BLEDSOE : 1945 DOS: 03/18/2016 This is [...] by:Tiffani Carrero RN Mar 18 2016 9:42AM PASTEURIZER HELPER [facility] OTHER * ANTICOAGULATION (03/09/2016) Narrative Procedure Note [facility] - 03/09/2016 12:00 AM CDT [facility] Comments [...] OTHER * ANTICOAGULATION (02/27/2016) Narrative Procedure Note [facility] - 02/27/2016 12:00 AM CDT Anticoagulation [facility] Name: CRISTIAN BLEDSOE : 1945 DOS: [...] by:Tiffani Carrero RN Feb 27 2016 12:04PM PASTEURIZER HELPER [facility] OTHER * ANTICOAGULATION (02/12/2016) Narrative Procedure Note [facility], [facility] - 02/12/2016 12:00 AM CDT Anticoagulation [facility] Name: CRISTIAN BLEDSOE : 1945 DOS: [...] by:Tiffani Carrero RN Feb 12 2016 9:02AM PASTEURIZER HELPER [facility] OTHER * ANTICOAGULATION (02/04/2016) Narrative Procedure Note [facility], [facility] - 02/04/2016 12:00 AM CDT Anticoagulation [facility] Name: CRISTIAN BLEDSOE : 1945 DOS: [...] by:Tiffani Carrero RN Feb 04 2016 9:45AM PASTEURIZER HELPER [facility] OTHER * ANTICOAGULATION (01/31/2016) Narrative Procedure Note [facility], [facility] - 01/31/2016 12:00 AM CDT Name: [...] by:Carlene Hargrove RN Jan 31 2016 2:45PM PASTEURIZER HELPER [facility] OTHER documented in this encounter Visit Diagnoses Not on filedocumented in this encounter Care Teams Examination Supervisor Relationship Specialty Start Date End Date Casey Berry II, DO PCP - General 11/22/06 08/17/19 Stephani Aleman MD PCP - General Family Medicine 08/18/19 09/16/20 Bianka Loera CNP [address] [place] [phone] PCP - General Nurse Practitioner Family 09/17/20 7/2 12/31 Desiree Patrick MD [address] [place] [address] PCP - General Electrophysiology 02/23/22 03/09/22 Desiree Patrick MD [address] [place] [address] 08/09/17 Farrah Nicole APRN,LEAF SIZE PICKER [address] [place] [address] 08/09/17 Bry Echevarria MD [address] [place] [address] [place] [address] 08/09/17 Casey Berry II, DO 08/09/17 Shruti Vergara, RN RN Registered Nurse 08/27/20 documented as of this encounter Additional Source Comments PLEASE NOTE: Replies to this message will not be received.[facility]
--- OUTSIDE RECORDS SUMMARY | 2024-01-28 14:03 | XMS_ITS | Encounter Summary ---
Author Organization [employer] Address [address] [place] [address] Care Team Providers Care Career Services Representative Name Role Phone Jamal CARLISLE DO, Robert William Primary Care Provide r Unavailable Desiree Patrick MD Unavailable Farrah Nicole APRN,PRINTING SIGN MACHINE OPERATOR Unavailable [phone] Bry Echevarria MD Unavailable Jamal CARLISLE DO, Robert William Unavailable Unav Stephani Diaz MD Primary Care Provider Shruti Vergara RN Unavailable Unavailable Bianka Loera CNP Primary Care Provider Desiree Patrick MD Primary Care P rovider Encounter Details Date Type Department Care Team (Late st Contact Info) Description 12/11/2015 Historical Conversion [facility] Family Medicine [address] [place] [phone] Casey Berry II, DO Social History Tobacco [...] on filedocumented in this encounter Care Teams Career Services Representative Relationship Specialty Start Date End Date Casey Berry II, DO PCP - General 11/22/06 08/17/19 Stephani Aleman MD PCP - General Family Medicine 08/18/19 09/16/20 Bianka Loera CNP [address] [place] [phone] PCP - General Nurse Practitioner Family 09/17/2001/10 [place] [address] [place] [phone] PCP - General Electrophysiology 02/23/22 03/09/22 Desiree Patrick MD [address] [place] [address] 08/09/17 Farrah Nicole APRN,[facility] [address] [place] [address] 08/09/17 Bry Echevarria MD [address] [place] [address] [place] [address] 08/09/17 Casey Berry II, DO 08/09/17 Shruti Vergara RN RN Registered Nurse 08/27/20 documented as of this encounter Additional Source Comments PLEASE NOTE: Replies to this message will not be received.[facility]
--- OUTSIDE RECORDS SUMMARY | 2024-01-28 14:03 | XMS_ITS | Encounter Summary ---
Author Organization [employer] Address [address] [place] [address] Care Team Providers Care Licensed Reactor Operator Name Role Phone Jamal CARLISLE DO, Robert William Primary Care Provide r Unavailable Desiree Patrick MD Unavailable Farrah Nicole APRN,HEALTH EDUCATION COORDINATOR Unavailable Bry Echevarria MD Unavailable Jamal CARLISLE DO, Robert William Unavailable Unav Stephani Diaz MD Primary Care Provider Shruti Vergara RN Unavailable Unavailable Bianka Loera CNP Primary Care Provider Desiree Patrick MD Primary Care P rovider Encounter Details Date Type Department Care Team (Late st Contact Info) Description 03/10/[address] [facility] Family Medicine [address] [place] [phone] Casey Berry II, DO Social History Tobacco [...] on filedocumented in this encounter Care Teams Licensed Reactor Operator Relationship Specialty Start Date End Date Casey Berry II, DO PCP - General 11/22/06 08/17/19 Stephani Aleman MD PCP - General Family Medicine 08/18/19 09/16/20 Bianka Loera CNP [address] [place] [address] [phone] PCP - General Nurse Practitioner Family 09/17/2001/10 [place] [address] [place] [address] PCP - General Electrophysiology 02/23/22 03/09/22 Desiree Patrick MD [address] [facility] [place] [address] 08/09/17 Farrah Nicole APRN,[facility] [address] [facility] [place] [address] 08/09/17 Bry Echevarria MD [facility] [place] [address] 08/09/17 Casey Berry II, DO 08/09/17 Shruti Vergara RN RN Registered Nurse 08/27/20 documented as of this encounter Additional Source Comments PLEASE NOTE: Replies to this message will not be received.[facility]
--- OUTSIDE RECORDS SUMMARY | 2024-01-28 14:03 | XMS_ITS | Encounter Summary ---
Author Organization [facility] Address [address] [place] [address] Care Team Providers Care Telephone Repairer Name Role Phone Jamal CARLISLE DO, Robert William Primary Care Provide r Unavailable Desiree Patrick MD Unavailable Farrah Nicole APRN, CNS Unavailable Bry Echevarria MD Unavailable [phone] Jamal CARLISLE DO, Robert William Unavailable Unav Stephani Diaz MD Primary Care Provider Shruti Vergara RN Unavailable Unavailable Bianka Loera CNP Primary Care Provider Desiree Patrick MD Primary Care P rovider Encounter Details Date Type Department Care Team (Late st Contact Info) Description 11/15/2006 Clinic Encounter [facility] Dermatology [address] [place] [address] Ganga Anderson MD Social History [...] Rohan Carroll : 1945 E: Ganga Anderson MD/[facility] DERMATOLOGY OFFICE VISIT CHART: [id number] P Date of Service: 2006 Doc #: [id number] P Attending Physician: None available SUBJECTIVE: This [...] 1 cc was used locally. Using a Mar[place] blade, the skin biopsy was then performed. [...] we will set up treatment as indicated. [facility] documented in this encounter Plan of Treatment Not on file documented as of this encounter Visit Diagnoses Not on filedocumented in this encounter Care Teams Telephone Repairer Relationship Specialty Start Date End Date Casey Berry II, DO PCP - General 11/22/06 08/17/19 Stephani Aleman MD PCP - General Family Medicine 08/18/19 09/16/20 Bianka Loera CNP [address] [place] [address] [address] [place] [phone] PCP - General Nurse Practitioner Family 09/17/20 7/2 12/31 Desiree Patrick MD [address] [place] [address] PCP - General Electrophysiology 02/23/22 03/09/22 Desiree Patrick MD [address] [place] [address] 08/09/17 Farrah Nicole APRN,EMERGENCY VEHICLE OPERATIONS INSTRUCTOR [address] [place] [address] 08/09/17 Bry Echevarria MD [address] [place] [phone] 08/09/17 Casey Berry II, DO 08/09/17 Shruti Vergara RN RN Registered Nurse 08/27/20 documented as of this encounter Additional Source Comments PLEASE NOTE: Replies to this message will not be received.[facility] and [facility]
--- OUTSIDE RECORDS SUMMARY | 2024-01-28 14:04 | XMS_ITS | Clinical Summary ---
Author Organization [facility] Address [address] [place] [address] Care Team Providers Care Customer Care Assistant Name Role Phone Unavailable Primary Care Provider Unavailabl e Source Comments Patient records contain information from all sites at [facility]. For routine questions regarding patient records, call [phone] during business hours, M-F 8:00 AM - 5:00 PM Central Time. Record requests for emergency care only can be directed to [phone] at any time.[facility] Allergies Active Allergy Reactions Criticality Noted [...] Rupture 2015 Overview: 4.2 x 4.[address] [facility] Social History Tobacco Use Types Packs/Day [...] Comments Blood Pressure 136/82 05/17/2023 1:44 PM TRAUMA NURSE Pulse 70 05/17/2023 1:44 PM TRAUMA NURSE Temperature 36.8 ??C (98.2 ??F) 05/17/2023 1:44 PM CS T Respiratory Rate - - Oxygen Saturation - - Inhaled Oxygen Concentration - - Weight 87.3 kg (192 lb 7.4 oz) 05/17/2023 1:44 P M TRAUMA NURSE Height 184 cm (6' 0.44) 04/15/2023 2:57 PM CDT Body Mass Index 25.79 04/15/2023 2:57 PM CDT Plan of Treatment Upcoming Encounters Date Type Department Care Team (Late st Contact Info) Description 02/23/2024 10:15 AM CDT Comprehensive Visit Department of Neurology in [place], [place] [address] [place] [id number] Vic Mae M.D. [address] [place] [address] Health Maintenance Due Date Last Done Comments Creatinine Level (Kidney Fun ction Test) 1945 Hepatitis C Screening 1945 Potassium Level 1944 Sodium Level 1944 Zoster Vaccines (2 of 3) 03/25/2010 01/28/2010 Fall Risk Screen (Annual) 07/12/2023 COVID-19 Vaccine (7 - 2022-2 4 season) 2023 04/17/2023, 05/07/2022, 11/04/2021, Additional history exists DTaP,Tdap,and Td Vaccines (2 - Td or Tdap) 08/21/2023 08/21/2013 Influenza Vaccine (#1) 2024 , 03/25/2021, 03/12/2020, Additional history exists Office Visit for Blood Press ure Check / Re-check 05/17/2024 05/17/2023 Pneumococcal vaccine (65+ years) Completed 08/28/2016, 08/28/2015, 01/28/2010
--- OUTSIDE RECORDS SUMMARY | 2024-01-28 14:04 | XMS_ITS | Continuity of Care Document ---
Author Organization [facility] Address [employer] [id number] [place] [address] Phone Care Team Providers Care Disk Grinder Name Role Phone VETO MALDONADO MD Unavailable Unavailable Procedures Procedure Date Subsqt Hosp-da E&m Minr Compl 7 Init Inpt Cons New/est Mod-hi 7 Advance Directives Directive Yes / No Effective Date File Name No Information Encounters Encounter Description Practice Location Reason(s) For Visit Diagnoses Date Provider Providers Copied on Encounter Subsqt Hosp-da E&m Minr Compl [facility], [employer] [address], [place], [place], [id number], [place] tel:[phone] [facility] No Information TAY LAWS. [address] [facility] [address], [place], [address], [place]. tel:[phone] Referring Provider: GISEL VERDE, [address] [place] [address], [place], [id number]. tel:[phone] Init Inpt Cons New/est Mod-hi [facility], [employer] [address], [place], [place], [id number], [place] tel:[phone] [facility] No Information ISAC PETTY. [address], [address], [place], [id number], [place]. tel:[phone] Referring Provider: GISEL VERDE, [address] [address], [place], [place], [id number]. tel:[phone] Family History Family Member Type Diagnosis Age At Onset No Information Payers Payer name Insurance type Covered republican ID Authoriza tikayla(s) No Information Social History Type Description Quantity Date Captured Comments Sex Male Smoking Status No Information Chief Complaint And Reason For Visit No Information History Of Present Illness Encounter Date Complaint History Of Prese nt Illness No Information Instructions Date Instruction Additional Infor mation No Information Assessments Type Assessment Date No Information
--- OUTSIDE RECORDS SUMMARY | 2024-01-28 14:04 | XMS_ITS | Continuity of Care Document ---
Author Organization [facility] Address [address] [place] [address] Phone Care Team Providers Care Labor Union Business Representative Name Role Phone Timoteo Acosta D.O. Unavailable [...] Diagnoses Date Provider Providers Copied on Encounter [facility], [address] [place] [address], [id number], tel:[phone] [facility] No Information Dave Mahmood. [address] [place] [address], [id number], [place]. tel:[phone] [facility], [address] [place] [address], [id number], [place] tel:[phone] [facility] No Information Dave Mahmood. [address] [place] [address], [id number], [place]. tel:[phone] Referring Provider: Cherelle Borja [facility] [address], [place], [address]. tel:[phone] [facility], [address] [place] [address], [id number], [place] tel:[phone] [facility] No Information Dave Mahmood. [address] [place] [address], [id number], [place]. tel:[phone] Referring Provider: Cherelle Borja [facility] [address], [place], [address]. tel:[phone] OFFICE/OUTPATI ENT VISIT, EST [facility], [address] [place] [address], [id number], [place] tel:[phone] [facility] decreased vision (chief complaint) PCO-OSDrusen (degenerative ) of macula, left eye Dave Mahmood. [address] [place] [address], [id number], [place]. tel:[phone] Referring Provider: Cherelle Borja [facility] [address], [place], [address]. tel:[phone] [facility], [address] [place] [address], [id number], tel:[phone] [facility] No Information Dave Mahmood. [address] [place] [address], [id number], . tel:[phone] Referring Provider: Timoteo Zhao, [address] [place] [address], [id number]. tel:[phone] [facility], [address] [place] [address], [id number], tel:[phone] [facility] No Information Dave Mahmood. [address] [place] [address], [id number], [place]. tel:[phone] Referring Provider: Timoteo Zhao, [address] [place] [address], [address] [place] [address]. tel:[phone] OFFICE/OUTPATI ENT VISIT, [facility], [address] [place] [address], [address] [place] [address], tel:[phone] [facility] blurry vision (chief complaint) Cat-combined- ODCat-Pseudop hakia Dave Mahmood. [address] [place] [address], [id number], [place]. tel:[phone] Referring Provider: Timoteo Zhao, [address] [place] [address], [address] [place] [address]. tel:[phone] [facility], [address] [place] [address], [id number], [place] tel:[phone] [facility] No Information Dave Mahmood. [address] [place] [address], [id number], [place]. tel:[phone] Referring Provider: Timoteo Zhao, [address] [place] [address], [id number]. tel:[phone] [facility], [address] [place] [address], [id number], tel:[phone] [facility] No Information Dave Mahmood. [address] [place] [address], [id number], [place]. tel:[phone] Referring Provider: Timoteo Zhao, [address] [place] [address], [id number]. tel:[phone] [facility], [address] [place] [address], [id number], tel:[phone] [facility] No Information Dave Mahmood. [address] [place] [address], [id number], [place]. tel:[phone] Referring Provider: Timoteo Zhao, [address] [place] [address], [id number]. tel:[phone] [facility], [address] [place] [address], [id number], tel:[phone] [facility] No Information Dave Mahmood. [address] [place] [address], [id number], [place]. tel:[phone] Referring Provider: [facility] [address], [place], [address]. tel:[phone] OFFICE/OUTPATI ENT VISIT, [facility], [address] [place] [address], [id number], [place] tel:[phone] [facility] 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 [address] [place] [address], [id number], [place]. tel:[phone] Referring Provider: Cherelle Borja [facility] [address], [place], [address]. tel:[phone] [facility], [address] [place] [address], [id number], [place] tel:[phone] [facility] No Information Dave Mahmood. [address] [place], [place], [id number], . tel:[phone] Referring Provider: Timoteo Zhao, [address] [place], [address]. tel:[phone] Family History Family Member Type Diagnosis Age At Onset No Information Payers Payer name Insurance type Covered libertarian ID Viet dillon(s) [facility] [id number] Social History Type Description Quantity Date Captured [...]
--- OUTSIDE RECORDS SUMMARY | 2024-01-28 14:04 | XMS_ITS ---
Author Organization [facility] Address [address] [place] [address] Care Team Providers Care Aoc Plans Intelligence Officer Name Role Phone Unavailable Unavailable Unavailable Surgery Details Not on file Complications Check Surgery Details section. Procedure Estimated Blood Loss Check Surgery Details section. Procedure Findings Check Surgery Details section. Procedure Specimens Taken Check Surgery Details section.
--- OUTSIDE RECORDS SUMMARY | 2024-01-28 14:04 | XMS_ITS | Encounter Summary ---
Author Organization [facility] Address [address] [place] [address] Care Team Providers Care Palliative Nurse Name Role Phone Unavailable Primary Care Provider Unavailabl e Reason for Visit * Reason Comments Anticoagulation Encounter Details Date Type Department Care Team (Late st Contact Info) Description 12/03/2023 Telephone Anticoagulation Centralized Services [id number] [address] [place] [id number] Thierry Lin MD [address] [place] [address] Anticoagulation Social History Tobacco Use Types Packs/Day Years Used Date Smoking Tobacco: Never Assessed Sex and Gender Information Value Date Recorded Sex Assigned at Not on file Gender Identity Not on file Sexual Orientation Not on file documented as of this encounter Nursing Notes * Timoteo Goldstein RN - 12/03/2023 12:49 PM CDT Chart reviewed. Patient remains on the anticoagulant, but care is managed by an outside clinician/health system: Change the anticoagulant to historical documented in this encounter Plan of Treatment Not on file documented as of this encounter Visit Diagnoses Not on filedocumented in this encounter
--- OUTSIDE RECORDS SUMMARY | 2024-01-28 14:04 | XMS_ITS | Continuity of Care Document ---
Author Organization [facility] Address [address] [place] [address] Phone Care Team Providers Care Ent Consultant Name Role Phone [facility], [facility] Unavailable Unavailable Allergies, Adverse Reactions, Alerts Substance Reaction Status Criticality Sulfa (Sulfonamide Antibiotics) rash Active No Information PENICILLIN rash Active No Information Medications Medication Instructions Dosage Effective Dates (start - stop) Status Comments Ankx-Yhok-Eittb 1%/0.5%/.01% OPHTHALMIC DROPS Apply one drop to [...] Diagnoses Date Provider Providers Copied on Encounter [facility], [address] [place], [id number], [place] tel:[phone] [facility] No Information 2 [facility]. [address] [place], [id number]. tel:[phone] Referring Provider: Timoteo Zhao, [address] [place], [address] . tel:[phone] [facility], [address] [place], [place], [id number], [place] tel:[phone] [facility] No Information 2 [facility]. [address] [place], [id number]. tel:[phone] Referring Provider: Timoteo Zhao, [address] [place], [address] . tel:[phone] [facility], [address] [place], [id number], [place] tel:[phone] [facility] No Information 9 [facility]. [address] [place], [id number]. tel:[phone] Referring Provider: Timoteo Zhao, [address] [place], [address] . tel:[phone] [facility], [address] [place], [id number], [place] tel:[phone] [facility] No Information 9 [facility]. [address] [facility], [place], [place], [id number]. tel:[phone] Referring Provider: Timoteo Zhao, [address] [place] [address], [address] . tel:[phone] [facility], [address] [place], [place], [id number], tel:[phone] [facility] No Information 9 Dave Mahmood. [address] [place] [address], [id number], [place]. tel:[phone] Family History Family Member Type Diagnosis Age At Onset No Information Payers Payer name Insurance type Covered alliance party ID Authoriza tion(s) [facility] [id number] Social History Type Description Quantity Date Captured [...]
--- OUTSIDE RECORDS SUMMARY | 2024-01-28 14:04 | XMS_ITS | Referral Summary ---
Author Organization [facility] Address [address] [place] [address] Care Team Providers Care Electrocardiograph Repairer Name Role Phone Unavailable Primary Care Provider Unavailabl e Source Comments Patient records contain information from all sites at [facility]. For routine questions regarding patient records, call [phone] during business hours, M-F 8:00 AM - 5:00 PM Central Time. Record requests for emergency care only can be directed to [phone] at any time.[facility] Allergies Active Allergy Reactions Criticality Noted [...] Rupture 2015 Overview: 4.2 x 4.[address] [facility] CT Social History Tobacco Use Types [...] Comments Blood Pressure 136/82 05/17/2023 1:44 PM ACOUSTIC WARFARE ANALYST Pulse 70 05/17/2023 1:44 PM ACOUSTIC WARFARE ANALYST Temperature 36.8 ??C (98.2 ??F) 05/17/2023 1:44 PM CS T Respiratory Rate - - Oxygen Saturation - - Inhaled Oxygen Concentration - - Weight 87.3 kg (192 lb 7.4 oz) 05/17/2023 1:44 P M ACOUSTIC WARFARE ANALYST Height 184 cm (6' 0.44) 04/15/2023 2:57 PM CDT Body Mass Index 25.79 04/15/2023 2:57 PM CDT Plan of Treatment Upcoming Encounters Date Type Department Care Team (Late st Contact Info) Description 02/23/2024 10:15 AM CDT Comprehensive Visit Department of Neurology in [place], [place] [address] [place] [phone] Vic Mae M.D. [address] [place] [address]
--- OUTSIDE RECORDS SUMMARY | 2024-01-28 14:04 | XMS_ITS | Clinical Summary ---
Author [facility] Address [address] [place] [address] Care Team Providers Care Production Control Coordinating Clerk Name Role Phone Unavailable Primary Care Provider Unavailabl e Source Comments You are receiving this document as you are listed as the primary care provider,follow-up provider, or the patient has been referred to you for consultation.This is in compliance with the Medicare and[facility] Centercaid EHR Incentive Program,which states Providers who transition their patient to another setting of careor provider of care or refers their patient to another provider of care shouldprovide summary care record for each transition of care or referral. [facility] [employer] Allergies Active Allergy Reactions Criticality Noted Date [...] (10 mg) by mouth daily. 09/15/2023 Active Magnesium Hydroxide (DULCOLAX OR) Take 2 Tablets by mouth daily. Active carbidopa-levodop a (SINEMET) 25-100 MG tablet Take 3 Tablets by mouth three times a day. 6:30a, 11a, 5p 810 Tablet 3 09/24/2023 Active acetaminophen 500 MG tablet Take 1-2 Tablets (500-1,000 mg) by mouth every 4 hours as needed for Pain. Maximum acetaminophen dose is 4000 mg in 24 hours Active warfarin 5 MG tablet Managed by outside facility/provider 12/03/2023 Active Encounters Date Type Department Care Team Description 12/03/2023 Telephone [facility] Centralized Services [id number] [address] [place] [address] Thierry Lin MD Anticoagulation from Last 3 Months Social History Tobacco [...] Zoster/Shingles (3 of 3) 11/10/2023 09/15/2023, 01/10 Influenza (#1) 2024 05/04/2023, 09/2021, 03/25/2021, Additional history exists DTaP/Tdap/Td (3 - Tdap) 09/14/2033 09/15/19, 08/21/2013, 12/26/2002 Pneumococcal 65+ Yrs Completed 08/28/2016, 08/28/2015, 01/28/2010 HepA Aged Out No longer eligi ble [...]
--- OUTSIDE RECORDS SUMMARY | 2024-01-28 14:04 | XMS_ITS | Continuity of Care Document ---
Author Organization [facility] Address [address] [place] [address] Phone Care Team Providers Care Vulcan Crewmember Name Role Phone Triston TRENT, PhD, Fabio Unavailable Unavai lable Allergies, Adverse Reactions, Alerts Substance Reaction Status Criticality Sulfa (Sulfonamide Antibiotics) Active No Information Penicillins Hives, Dermatitis Active No Informa tion Procedures Procedure Date Office/Outpatient Visit,[facility] 2023 Advance Directives Directive Yes / No Effective Date File Name No Information Encounters Encounter Description Practice Location Reason(s) For Visit Diagnoses Date Provider Providers Copied on Encounter [facility], [address], [place], [place], [id number], [place] tel:[phone] No Information Triston Mccarthy. [facility] [place], [address] [place] [address] [address], [place], [address], [place]. tel:[phone] Office/Outpat ient Visit,[facility], [address], [place], [place], [id number], [place] tel:[phone] [facility] L4 fracture, initial encounter for closed fracture Kev Pfeiffer. [facility], [address] [place] [address] [address], [place], [address], [place]. tel:[phone] Referring Provider: Marli Sanders, [address], [address]. tel:[phone] Family History Family Member Type Diagnosis Age At Onset Father Problem (finding) Cancer, unknown type Payers Payer name Insurance type Covered constitution party ID Authordavida tikayla(s) [facility] [id number] Social History Type Description Quantity Date Captured [...]
== END 2024-01-28 13:57 | disposition home or self-care (01) ==
PROVIDERS: PCP Family Medicine; Visit Provider Family Medicine
DX: I95.2 Hypotension due to drugs (principal); Z13.29 Encounter for screening for other suspected endocrine disorder
CPT/HCPCS: 80053; 84443

== ENCOUNTER 2024-02-16 12:45 | Outpatient (CLI) | payer BC, SELFPAY ==
--- OUTSIDE RECORDS SUMMARY | 2024-02-16 12:48 | XMS_ITS | Encounter Summary ---
Author Organization [facility] Address [address] [place] [address] Care Team Providers Care Investment Banking Analyst Name Role Phone Jamal CARLISLE DO, Robert William Primary Care Provide r Unavailable Desiree Patrick MD Unavailable Farrah Nicole APRN,COMPRESSOR HOUSE OPERATOR Unavailable Bry Echevarria MD Unavailable [phone] Jamal CARLISLE DO, Robert William Unavailable Unav Stephani Diaz MD Primary Care Provider Shruti Vergara RN Unavailable Unavailable Bianka Loera CNP Primary Care Provider Desiree Patrick MD Primary Care P rovider Encounter Details Date Type Department Care Team (Late st Contact Info) Description 06/13/2018 Historical Conversion [facility] Family [facility] [address] [facility] [place] [address] Bry Echevarria MD [address] [place] [address] Social History Tobacco Use Types [...] AM CST CRISTIAN BLEDSOE : 1945 HX: [id number] DOS: 06/13/2018 SUBJECTIVE: Patient is a 72-year-old [...] Jose Winslow in Radiation Oncology at the [facility]. He has not recently had cystoscopy. He [...] Prostate cancer, status post treatment with radiation. Anthony to be under good control at this [...] later. Bry Echevarria M.D./ekg-6 cc: Yury Berry DO/[facility] Radha cc: Elder Maloney MD/[facility] Radha cc: Mare Rubi PA-C/[facility] Radha cc: Jose Winslow MD/[facility] Electronically signed by:Bry Echevarria M.D. Jun 16 2018 2:16PM CHEMICAL PLANT OPERATOR documented in this encounter Plan of Treatment Not on file documented as of this encounter Visit Diagnoses Not on filedocumented in this encounter Care Teams Investment Banking Analyst Relationship Specialty Start Date End Date Casey Berry II, DO PCP - General 11/22/06 08/17/19 Stephani Aleman MD PCP - General Family Medicine 08/18/19 09/16/20 Bianka Loera ULTIMATE HOOPS SCOREBOARD OPERATOR [address] [place] [phone] PCP - General Nurse Practitioner Family 09/17/2001/10 Desiree Patrick MD [address] [place] [address] PCP - General Electrophysiology 02/23/22 03/09/22 Desiree Patrick MD [address] [place] [address] 08/09/17 Farrah Nicole, YARN WRAPPER,COMPRESSOR HOUSE OPERATOR [address] [place] [address] 08/09/17 Bry Echevarria MD [address] [place] [address] 08/09/17 Casey Berry II, DO 08/09/17 Shruti Vergara RN RN Registered Nurse 08/27/20 documented as of this encounter Additional Source Comments PLEASE NOTE: Replies to this message will not be received.[facility]
--- OUTSIDE RECORDS SUMMARY | 2024-02-16 12:48 | XMS_ITS | Encounter Summary ---
Author Organization [employer] Address [address] [place] [address] Care Team Providers Care Bird Tender Name Role Phone Jamal CARLISLE DO, Robert William Primary Care Provide r Unavailable Desiree Patrick MD Unavailable Farrah Nicole APRN,PROGRAM/MUSIC DIRECTOR Unavailable Bry Echevarria MD Unavailable Jamal CARLISLE DO, Robert William Unavailable Unav Stephani Diaz MD Primary Care Provider Shruti Vergara RN Unavailable Unavailable Bianka Loera CNP Primary Care Provider [phone] Desiree Patrick MD Primary Care P rovider Encounter Details Date Type Department Care Team (Late st Contact Info) Description 03/01/2018 Historical Conversion [facility] Family Medicine [address] [facility] 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 He [...] think he normally sees Farrah Jacobo APRN, PROGRAM/MUSIC DIRECTOR, at the [facility], so we will try to reach [...] meantime we will check with Cardiology in [place] about the option of Viagra or Cialis [...] P.A.-C./jmf- 24 cc: Jose Winslow M.D./Radiation Oncology [facility] cc: Casey Berry D.O./[facility] cc: Moon Maloney M.D./[facility] Electronically signed by:Desiree Rubi PA-C Mar 04 2018 1:27PM DEVELOPMENT AND PLANNING ENGINEER documented in this encounter Plan of Treatment Not on file documented as of this encounter Visit Diagnoses Not on filedocumented in this encounter Care Teams Bird Tender Relationship Specialty Start Date End Date Casey Berry II, DO PCP - General 11/22/06 08/17/19 Stephani Aleman MD PCP - General Family Medicine 08/18/19 09/16/20 Bianka Loear B[employer]ER [employer] [address] [place] [address] PCP - General Nurse Practitioner Family 09/17/20 712/31 Desiree Patrick MD [address] [place] [address] PCP - General Electrophysiology 02/23/22 03/09/22 Desiree Patrick MD [address] [place] [address] 08/09/17 Farrah Nicole APRN,PROGRAM/MUSIC DIRECTOR [address] [place] [address] 08/09/17 Bry Echevarria MD [facility] [place] [address] 08/09/17 Casey Berry II, DO 08/09/17 Shruti Vergara RN RN Registered Nurse 08/27/20 documented as of this encounter Additional Source Comments PLEASE NOTE: Replies to this message will not be received.[facility] and [facility]
--- OUTSIDE RECORDS SUMMARY | 2024-02-16 12:48 | XMS_ITS | Encounter Summary ---
Author Organization [employer] Address [address] [place] [address] Care Team Providers Care Railway Shunter Name Role Phone Jamal CARLISLE DO, Robert William Primary Care Provide r Unavailable Desiree Patrick MD Unavailable Farrah Nicole APRN,COMPLIANCE AUDITOR Unavailable Bry Echevarria MD Unavailable [phone] Jamal CARLISLE DO, Robert William Unavailable Unav Stephani Diaz MD Primary Care Provider [phone] Shruti Vergara RN Unavailable Unavailable Bianka Loera CNP Primary Care Provider Desiree Patrick MD Primary Care P rovider Encounter Details Date Type Department Care Team (Late st Contact Info) Description 06/13/2018 Historical Conversion [facility] Family [facility] [address] [facility] [place] [address] Bry Echevarria MD [address] [place] [address] Social History Tobacco Use Types [...] Comments Blood Pressure 120/78 06/13/2018 12:00 AM PIPE INSTALLER Pulse - - Temperature - - Respiratory Rate - - Oxygen Saturation - - Inhaled Oxygen Concentration - - Weight 93.8 kg (206 lb 12.7 oz) 018 12:00 AM PIPE INSTALLER Height - - Body Mass Index 27.29 05/18/2018 8:54 AM PIPE INSTALLER documented in this encounter Functional Status Functional [...] on filedocumented in this encounter Care Teams Railway Shunter Relationship Specialty Start Date End Date Casey Berry II, DO PCP - General 11/22/06 08/17/19 Stephani Aleman MD PCP - General Family Medicine 08/18/19 09/16/20 Bianka Loera CNP [address] [place] [address] [address] [place] [address] PCP - General Nurse Practitioner Family 09/17/2001/10 Desiree Patrick MD [address] [place] [address] PCP - General Electrophysiology 02/23/22 03/09/22 Desiree Patrick MD [address] [place] [address] 08/09/17 Farrah Nicole APRN,COMPLIANCE AUDITOR [address] [place] [address] 08/09/17 Bry Echevarria MD [address] [place] [address] 08/09/17 Casey Berry II, DO 08/09/17 Shruti Vergara RN RN Registered Nurse 08/27/20 documented as of this encounter Additional Source Comments PLEASE NOTE: Replies to this message will not be received.[facility] and [facility]
--- OUTSIDE RECORDS SUMMARY | 2024-02-16 12:48 | XMS_ITS | Referral Summary ---
Author Organization [employer] Address [address] [place] [address] Care Team Providers Care Four Slide Machine Operator Name Role Phone Desiree Patrick MD Unavailable Farrah Nicole APRN,SENIOR UI UX DESIGNER Unavailable Bry Echevarria MD Unavailable [phone] Jamal CARLISLE DO, Robert William Unavailable Unav [...] ipratropium (ATROVENT) 21 mcg (0.03 %) nasal Rose, Non-AerosolIndicatio ns:PND (post-nasal drip) 2 Sprays by [...] 5 mg oral TabletIndications:Pa roxysmal atrial fibrillation (HCC),terminal block assembler (current) use of anticoagulants TAKE 1 TABLET [...] 11/09/2018 Muscle tightness 11/09/2018 Bilateral foot-drop 11/09/2018 FPC (current) use of anticoagulants 2018 Encounter for monitoring dofetilide therapy 06/11 Atrial fibrillation (HCC) 06/21/2017 Essential hypertension 10/21/2016 Thoracic ascending aortic aneurysm 06/11/2016 Overview: 4.2 x 4.[address] [facility] Atrial flutter 11/15/2015 Esophageal dysmotility [...] How often do you attend chur or tenriism services? More than 4 times per year 04/04/2021 Do you belong to any clubs o r organizations such as jain groups, unions, fraternal or athletic groups, or [...] and heating? Not hard at all 04/04/2021 [facility] - Occupational [...] Master's degree (e.g., MA, MS, Mirlande, MEd, GEOGRAPHIC INFORMATION SYSTEMS DIRECTOR, ROHIT) 08/19/2020 Sex and Gender Information Value [...] HEPATITIS C AB Routine 08/26/2021 10:09 AM PROGRAMS ASSISTANT Need for hepatitis C screening test COLONOSCOPY Routine 02/27/2020 8:05 AM CDT LIPID PANEL Routine 08/18/2019 9:23 AM PROGRAMS ASSISTANT Screening for lipid disorders from Last 3 Months or Most Recently Relevant to Health Maintenance Results * (ABNORMAL) HEPATITIS C AB (08/26/2021 10:09 AM PROGRAMS ASSISTANT) HCV Ab Reactive( A) Nonreactive 08/26/2021 7:41 PM PROGRAMS ASSISTANT [facility] Comment: This is a reportable disease sent to the [facility]. 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 State of associated disease not determined. Blood VENOUS BLOOD / Unknown Venipuncture / Unknown 08/26/2021 10:09 AM PROGRAMS ASSISTANT 08/26/2021 10:09 AM PROGRAMS ASSISTANT Bianka Loera [facility] SEROLOGY ORDERAB LES Performing Organization Address [facility] Co de Phone Number [facility] [address] [place] [address] * COLONOSCOPY (02/27/2020 8:05 AM CDT) 02/27/2020 8:05 AM CDT Narrative [facility] - 02/27/2020 9:20 AM CDT [facility] Patient Name: Rohan Carroll Procedure Date: [...] of the bowel preparation was ?excellent. The [id number] was introduced through the anus ?and advanced [...] 8:05 AM Stephani Aleman MD GI PROCEDURES [facility] END[facility] * (ABNORMAL) LIPID PANEL (08/18/2019 9:23 AM PROGRAMS ASSISTANT) Cholesterol 96 0 - 200 mg/dL 08/18/2019 7:32 PM PROGRAMS ASSISTANT [facility] Triglycerides 65 30 - 150 mg/dL 08/18/2019 7:32 PM PROGRAMS ASSISTANT [facility] Cholesterol, LDL (Calculated) 45 0 - 159 mg/dL 08/18/2019 7:32 PM Cholesterol, HDL 38(L) >40 mg/dL 08/18/19 20 7:32 PM Cholesterol, vLDL 13 mg/dL 020 7:32 PM Blood VENOUS BLOOD SPECIMEN / Unknown Venipuncture / Unknown 08/18/2019 9:23 AM PROGRAMS ASSISTANT 08/18/2019 9:23 AM PROGRAMS ASSISTANT Stephani Aleman MD LAB CHEMISTRY ORDERA JOSH [facility] [address] [place], [place] [phone] from Last 3 Months or Most Recently Relevant to Health Maintenance Advance Directives Documents on File Type Date Recorded Patient Compliance Examiner Expl anation Advanced Directives 08/23/2014 3:05 PM [facility] * Full Code (Latest Code Status on File) Date Activated Date Inactivated Comments 06/21/2017 3:50 PM 06/24/2017 4:37 PM * Full Code Date Activated Date Inactivated Comments 10/19/2016 4:45 PM 10/20/2016 8:57 PM * Full Code Date Activated Date Inactivated Comments 11/15/2015 11:16 PM 11/16/2015 11:46 AM Care Teams Four Slide Machine Operator Relationship Specialty Start Date End Date Desiree Patrick MD [address] [place] [address] 08/09/17 Farrah Nicole APRN,SENIOR UI UX DESIGNER [address] [place] [address] 08/09/17 Bry Echevarria MD [address] [place], [place] [address] [phone] 08/09/17 Casey Berry II, DO 08/09/17 Shruti Vergara, RN RN Registered Nurse 08/27/20 Additional Source Comments PLEASE NOTE: Replies to this message will not be received.[facility]
--- OUTSIDE RECORDS SUMMARY | 2024-02-16 12:48 | XMS_ITS | Clinical Summary ---
Author Organization [employer] Address [place], [place] [address] Care Team Providers Care Yarn Conditioner Name Role Phone Marli aSuceda MD Primary Care Provider + Allergies Active [...] Encounters Date Type Department Care Team Description 02/15/2024 Telephone [facility] [address] [place] [address] Kiya Gomes RN Medication Management (Tikosyn/) 01/19/2024 Orders Only [facility] [address] [facility] [address] [place] [address] Fabio Goldstein MD <No scans attached> 12/07/2023 Telephone [facility] [address] [place] [address] Juan Manuel Pelayo, AuD Hearing Aid 11/25/2023 12:30 PM CDT Office Visit [facility] [address] [place] [address] Juan Manuel Pelayo, AuD Hearing Aid 11/25/2023 Orders Only [facility] Scanner 1 scan: (1-Ord) [place], MULTIPLE RESULTS, 11/25/2023 11/25/2023 Orders Only [facility] Scanner 1 scan: (1-Ord) NORMAL ECG, 11/25/2023 11/25/2023 Travel 11/16/2023 Telephone [facility] [address] [place] [address] Kiya Gomes, boom operator Management (Tikosyn/) from Last 3 Months Social [...] Care Team (Late st Contact Info) Description 02/16/2024 1:00 PM CDT Ancillary Procedure [facility] [address] [place] [address] Health Maintenance Due Date Last Done Comments [...] OTHER from Last 3 Months Care Teams Yarn Conditioner Relationship Specialty Start Date End Date Marli Sauceda MD [address] [place] [address] PCP - General Family Practice 03/13/22
--- OUTSIDE RECORDS SUMMARY | 2024-02-16 12:48 | XMS_ITS | Encounter Summary ---
Author Organization [employer] Address [address] [place] [address] Care Team Providers Care Striker Out Name Role Phone Jamal CARLISLE DO, Robert William Primary Care Provide r Unavailable Desiree Patrick MD Unavailable Farrah Nicole APRN,DOOR ASSEMBLER Unavailable Bry Echevarria MD Unavailable Jamal CARLISLE DO, Robert William Unavailable Unav Stephani Diaz MD Primary Care Provider [phone] Shruti Vergara RN Unavailable Unavailable Bianka Loera CNP Primary Care Provider [phone] Desiree Patrick MD Primary Care P rovider Encounter Details Date Type Department Care Team (Late st Contact Info) Description 07/22/2018 Historical Conversion [facility] Family Medicine [address] [place] [address] Moon Maloney MD Social History Tobacco Use [...] Comments Blood Pressure 120/58 07/22/2018 12:00 AM STENCILING MACHINE TENDER Pulse - - Temperature - - Respiratory Rate - - Oxygen Saturation - - Inhaled Oxygen Concentration - - Weight 93.8 kg (206 lb 12.7 oz) 019 12:00 AM STENCILING MACHINE TENDER Height - - Body Mass Index 27.28 06/20/2018 8:23 AM STENCILING MACHINE TENDER documented in this encounter Functional Status [...] on filedocumented in this encounter Care Teams Striker Out Relationship Specialty Start Date End Date Casey Berry II, DO PCP - General 11/22/06 08/17/19 Stephani Aleman MD PCP - General Family Medicine 08/18/19 09/16/20 Bianka Loera CNP [address] [facility] 2 [place] [phone] PCP - General Nurse Practitioner Family 09/17/2001/10 [place] [address] [place] [address] PCP - General Electrophysiology 02/23/22 03/09/22 Desiree Patrick MD [address] [place] [address] 08/09/17 Farrah Nicole APRN,DOOR ASSEMBLER [address] [place] [address] 08/09/17 Bry Echevarria MD [address] [place] [address] 08/09/17 Casey Berry II, DO 08/09/17 Shruti Vergara RN RN Registered Nurse 08/27/20 documented as of this encounter Additional Source Comments PLEASE NOTE: Replies to this message will not be received.[facility] and [facility]
--- OUTSIDE RECORDS SUMMARY | 2024-02-16 12:48 | XMS_ITS | Encounter Summary ---
Author Organization [employer] Address [address] [place] [address] Care Team Providers Care Fingerprint Clerk Name Role Phone Jamal CARLISLE DO, Robert William Primary Care Provide r Unavailable Desiree Patrick MD Unavailable Farrah Nicole APRN,INSTRUCTOR KNITTING Unavailable Bry Echevarria MD Unavailable Jamal CARLISLE DO, Robert William Unavailable Unav Stephani Diaz MD Primary Care Provider Shruti Vergara RN Unavailable Unavailable Bianka Loera CNP Primary Care Provider Desiree Patrick MD Primary Care P rovider Encounter Details Date Type Department Care Team (Late st Contact Info) Description 09/19/2018 Historical Conversion [facility] Family Medicine [address] [place] [address] Trish Barone, PT Social History Tobacco Use [...] by:Trish Barone PT Oct 12 2018 5:27PM DIE TURNER AMENDMENTS: 1. Patient received 4 feet of green theraband on this date of service. Electronically signed by:Trish Barone PT Oct 12 2018 5:28PM DIE TURNER * Trish Barone, PT - 10/03/2018 12:00 [...] per day with the dogs. He attends [employer] with his 2 times a week. OBJECTIVE: [...] by:Trish Barone PT Oct 03 2018 1:23PM DIE TURNER * Trish Barone, PT - 09/19/2018 12:00 AM CDT CRISTIAN BLEDSOE : 1945 HX: [id number] DOS: 09/19/2018 REFERRING PROVIDER: Casey Berry D.O. 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 He is currently [...] PATIENT RECEIVED: Patient received 30 minutes of bnxy-vi-udju evaluation with three or more comorbidities and three or more elements addressed. Clinical presentation is evolving and clinical complexity is moderate. Patient also received canalith repositioning maneuvers on this date. Trish Barone, PT, [place] #[id number] Electronically signed by:Trish Barone PT Sep 26 2018 8:37AM DIE TURNER documented in this encounter Plan of Treatment Not on file documented as of this encounter Visit Diagnoses Not on filedocumented in this encounter Care Teams Fingerprint Clerk Relationship Specialty Start Date End Date Casey Berry II, DO PCP - General 11/22/06 08/17/19 Stephani Aleman MD PCP - General Family Medicine 08/18/19 09/16/20 Bianka Loera CNP [address] [place] [address] [address] [place] [phone] PCP - General Nurse Practitioner Family 09/17/2001/10 Desiree Patrick MD [address] [place] [address] PCP - General Electrophysiology 02/23/22 03/09/22 Desiree Patrick MD [address] [place] [address] 08/09/17 Farrah Nicole APRN,INSTRUCTOR KNITTING [address] [place] [address] 08/09/17 Bry Echevarria MD [facility] [place] [address] 08/09/17 Casey Berry II, DO 08/09/17 Shruti Vergara RN RN Registered Nurse 08/27/20 documented as of this encounter Additional Source Comments PLEASE NOTE: Replies to this message will not be received.[facility] and [facility]
--- OUTSIDE RECORDS SUMMARY | 2024-02-16 12:48 | XMS_ITS | Encounter Summary ---
Author Organization [employer] Address [address] [place] [address] Care Team Providers Care Art Gallery Director Name Role Phone Jamal CARLISLE DO, Robert William Primary Care Provide r Unavailable Desiree Patrick MD Unavailable Farrah Nicole APRN,EVENT OPERATIONS MANAGER Unavailable Bry Echevarria MD Unavailable Jamal CARLISLE DO, Robert William Unavailable Unav Stephani Diaz MD Primary Care Provider Shruti Vergara RN Unavailable Unavailable Bianka Loera CNP Primary Care Provider [phone] Desiree Patrick MD Primary Care P rovider Encounter Details Date Type Department Care Team (Late st Contact Info) Description 09/08/2018 Historical Conversion [facility] Family Medicine [address] [place] [address] Casey Berry II, DO Social History Tobacco [...] DAILY CBC; Status:Resulted - Requires Verification; Done: [id number] 09:12AM Comprehensive Metabolic Panel; Status:Resulted - Requires Verification; Done: 47Ojj9313 09:12AM Lipid Panel; Status:Resulted - Requires Verification; Done: 08Sep2018 09:12AM Vitamin D Total [facility]; Status:Resulted - Requires Verification; Done: 08Sep2018 09:12AM Ataxia Drawing Fee; Status:Complete; Done: 08Sep2018 Balance Center Consult Consult Only Evaluation and Treatment Status: Hold For - Required information Requested for: [id number] Phone Number to Contact Patient: : See chart to Provider, Practice or Agency: : [facility] Folate; Status:Resulted - Requires Verification; Done: [...] 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 HEALTH CARE MAINTENANCE: Colonoscopy in 2009, due in 2019. Current Meds 1. Dofetilide 250 MCG Oral Capsule; TAKE 1 CAPSULE EVERY 12 HOURS; Last Rx:[id number] Ordered 2. Jantoven 5 MG Oral Tablet; TAKE 1 1/2 TABLET BY MOUTH ON WEDNESDAYS, AND 1 TABLET BY MOUTH ALL OTHER DAYS OF THE WEEK DIRECTED; Therapy: 13Apr2018 to (Evaluate:28Sep2018) Requested for: 87Osa9916; Last Rx:[id number] Ordered 3. Lisinopril 10 MG Oral Tablet; TAKE ONE TABLET DAILY; Therapy: 18Oct2017 to Recorded 4. Metoclopramide HCl - 5 MG Oral Tablet; TAKE 1 TABLET BY MOUTH THREE TIMES DAILY WITH MEALS NEEDED; Therapy: 10Sep2014 to (Evaluate:93Dkv8888) Requested for: 04Gaa4796; Last Rx:[id number] Ordered 5. Oxybutynin Chloride ER 10 MG Oral Tablet Extended Release 24 Hour; TAKE 1 TABLET DAILY; Therapy: 13Adi7354 to (Evaluate:31Lmt1312) Requested for: 55Zfc8999; Last Rx:[id number] Ordered 6. Polyethylene Glycol 3350 Oral Powder; take 17 grams in 8 ounces of fluid once daily as needed for constipation; Therapy: 05Sjm8213 to (Evaluate:27May2018); Last Rx:[id number] Ordered 7. Sildenafil Citrate 100 MG Oral Tablet; Take 1/2-1 tab 1 hour before sexual activity; Therapy: 12Xdd7641 to (Last Rx:02Pun8359) Requested for: 90Lxo2986 Ordered 8. Triamcinolone Acetonide 0.1 % External Lotion; APPLY 2-3 TIMES DAILY TO AFFECTED AREA(S); Therapy: 49Xgn9561 to (Last Rx:96Ico4922) Requested for: 67Ezv9605 Ordered Allergies 1. Penicillins 2. Sulfa Drugs [...] Prostate firm, no masses, nontender. Results/Data CBC [id number] 09:12AM Jamal Casey FASTING Test Name Result [...] 0.9 L 1.0-4.7 Vitamin D Total [facility] 26Ttn2720 09:12 Casey Berry Test Name Result Flag Reference Vitamin D Total - [facility] 20.9 ng/ml L 30-100 Deficiency <10ng/mL Insufficiency 10-29 ng/mL Sufficiency 30-100 ng/mL Possible Toxicity >100 ng/mL TSH [id number] 09:12 Casey Berry FASTING Test Name Result Flag Reference TSH 1.670 uIU/ml 0.30-4.70 Vitamin B12 08Sep2018 09:12AM Casey Berry Test Name Result Flag Reference Vitamin B12 382 pg/ml 200-1000 Folate 95Wrb1704 09:12AM Casey Brery Test Name Result Flag Reference Folate >20.0 ng/ml H 6.6-19.9 Signatures Casey Berry II, D.Veena/jaj-28 REVISED NOTE 09/12/2018/naomie Electronically signed by : Casey Berry DO; Sep 09 2018 11:14AM DIRECTOR [employer] Electronically signed by : Casey Berry DO; Sep 12 2018 9:09AM DIRECTOR [employer] documented in this encounter Plan of Treatment Not on file documented as of this encounter Visit Diagnoses Not on filedocumented in this encounter Care Teams Art Gallery Director Relationship Specialty Start Date End Date Casey Berry II, DO PCP - General 11/22/06 08/17/19 Stephani Aleman MD PCP - General Family Medicine 08/18/19 09/16/20 Bianka Loera FORMING OPERATOR [address] [place] [phone] PCP - General Nurse Practitioner Family 09/17/20 712/31 Desiree Patrick MD [address] [place] [address] PCP - General Electrophysiology 02/23/22 03/09/22 Desiree Patrick MD [address] [place] [address] 08/09/17 Farrah Nicole APRN,EVENT OPERATIONS MANAGER [address] [place] [address] 08/09/17 Bry Echevarria MD [facility] [place] [address] 08/09/17 Casey Beryr II, DO 08/09/17 Shruti Vergara RN RN Registered Nurse 08/27/20 documented as of this encounter Additional Source Comments PLEASE NOTE: Replies to this message will not be received.[facility] and [facility]
--- OUTSIDE RECORDS SUMMARY | 2024-02-16 12:48 | XMS_ITS | Encounter Summary ---
Author Organization [facility] Address [address] [place] [address] Care Team Providers Care Plant Production Manager Name Role Phone Jamal CARLISLE DO, Robert William Primary Care Provide r Unavailable Desiree Patrick MD Unavailable Farrah Nicole APRN,COVER STITCH MACHINE OPERATOR Unavailable Bry Echevarria MD Unavailable Jamal CARLISLE DO, Robert William Unavailable Unav Stephani Diaz MD Primary Care Provider Shruti Vergara RN Unavailable Unavailable Bianka Loera CNP Primary Care Provider Desiree Patrick MD Primary Care P rovider Encounter Details Date Type Department Care Team (Late st Contact Info) Description 02/06/2019 HIM Door Worker [facility] Heart [facility] Vascular [address] [address] Rakesh Williamson Chi, MD Social History Tobacco [...] ADULT WITH OR WITHOUT CONTRAST PERFORMED BY: [place] SITE: [place] [place] INTERPRETED BY: [facility], [place] TRANSTHORACIC ECHOCARDIOGRAM REPORT REFERRING DIAGNOSIS: Sleep [...] function. Note: This study was performed by [facility]. Only the interpretation was performed at the [facility] [place]. Electronically signed Rakesh Williamson MD Marketing Intelligence Manager , 06:42 A A felipa/Doc#: [id number] cc: Antoine Fitzpatrick MD Adult Normal Value [...] Blood pressure: 139/86 mmHg Previous study: 01/06/2017 Octave Board Assembler: KRISTA documented in this encounter Plan of [...] - 02/06/2019 12:00 AM CDT PERFORMED BY: [place] SITE: [place] [place] INTERPRETED BY: [facility], [place] TRANSTHORACIC ECHOCARDIOGRAM REPORT REFERRING DIAGNOSIS: Sleep [...] function. Note: This study was performed by Desi Hits alessio Welsh. Only theinterpretation was performed at the [facility]. Electronically signed Rakesh Williamson MD Marketing Intelligence Manager , 06:42 A A felipa/Doc#: [id number] cc: Antoine Fitzpatrick MD Adult Normal Value [...] Blood pressure: 139/86 mmHg Previous study: 01/06/2017 Octave Board Assembler: KRISTA Antoine Fitzpatrick MD,PHD CAR ULTRASOU [place] documented in this encounter Visit Diagnoses Not on filedocumented in this encounter Care Teams Plant Production Manager Relationship Specialty Start Date End Date Casey Berry II, DO PCP - General 11/22/06 08/17/19 Stephani Aleman MD PCP - General Family Medicine 2/7/20 3/8/21 Bianka Loera, PRODUCT DEVELOPMENT CHEMIST [address] [place] [phone] PCP - General Nurse Practitioner Family 09/17/20 712/31 Desiree Patrick MD [address] [place] [address] PCP - General Electrophysiology 02/23/22 03/09/22 Desiree Patrick MD [address] [place] [address] 08/09/17 Farrah Nicole APRN,COVER STITCH MACHINE OPERATOR [address] [place] [address] 08/09/17 Bry Echevarria MD [facility] [place] [phone] 08/09/17 Casey Berry II, DO 08/09/17 Shruti Vergara, RN RN Registered Nurse 08/27/20 documented as of this encounter Additional Source Comments PLEASE NOTE: Replies to this message will not be received.[facility] and [facility]
--- OUTSIDE RECORDS SUMMARY | 2024-02-16 12:48 | XMS_ITS | Clinical Summary ---
Author Organization [employer] Address [address] [place] [address] Care Team Providers Care Claim Processor Name Role Phone Desiree Patrick MD Unavailable Farrah Nicole APRN,LABORATORY WORKER Unavailable [phone] Bry Echevarria MD Unavailable [phone] Jamal CARLISLE DO, Robert William Unavailable Unav [...] ipratropium (ATROVENT) 21 mcg (0.03 %) nasal Randolph, Non-AerosolIndicatio ns:PND (post-nasal drip) 2 Sprays by [...] 5 mg oral TabletIndications:Pa roxysmal atrial fibrillation (HCC),adjunct faculty for medical terminology (current) use of anticoagulants TAKE 1 TABLET [...] 11/09/2018 Muscle tightness 11/09/2018 Bilateral foot-drop 11/09/2018 residential (current) use of anticoagulants 2018 Encounter for monitoring dofetilide therapy 06/11 Atrial fibrillation (HCC) 06/21/2017 Essential hypertension 10/21/2016 Thoracic ascending aortic aneurysm 06/11/2016 Overview: 4.2 x 4.[address] [facility] CT Atrial flutter 11/15/2015 Esophageal dysmotility [...] week 04/04/2021 How often do you attend [facility] or orthodox services? More than 4 times per year 04/04/2021 Do you belong to any clubs o r organizations such as christian groups, unions, fraternal or athletic groups, or [...] and heating? Not hard at all 04/04/2021 [facility] [place] of Occupat ional Health - Occupational Stress [...] place to sleep or slept in a half-way (including now)? No 04/04/2021 Depression (PHQ-9) Answer Date Recorded Last PHQ-9 Score Not on file 08/27/2022 Thoughts of self harm Not at all 08/27/2022 Education Answer Date Recorded What is the highest level of school you have completed or the highest degree you have received? Master's degree (e.g., MA, MS, Mirlande, MEd, SENIOR HUMAN RESOURCES REPRESENTATIVE, ROHIT) 08/19/2020 Sex and Gender Information Value [...] HEPATITIS C AB Routine 08/26/2021 10:09 AM ARCHITECTURAL TECHNICIAN Need for hepatitis C screening test COLONOSCOPY Routine 02/27/2020 8:05 AM CDT LIPID PANEL Routine 08/18/2019 9:23 AM ARCHITECTURAL TECHNICIAN Screening for lipid disorders from Last 3 Months or Most Recently Relevant to Health Maintenance Results * (ABNORMAL) HEPATITIS C AB (08/26/2021 10:09 AM ARCHITECTURAL TECHNICIAN) HCV Ab Reactive( A) Nonreactive 08/26/2021 7:41 PM ARCHITECTURAL TECHNICIAN [facility] - [facility] Comment: This is a reportable disease sent to the [place] [facility] of [facility]. 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 State of associated disease not determined. Blood VENOUS BLOOD / Unknown Venipuncture / Unknown 08/26/2021 10:09 AM ARCHITECTURAL TECHNICIAN 08/26/2021 10:09 AM ARCHITECTURAL TECHNICIAN Bianka Loera EXCHANGE TELLER LAB SEROLOGY ORDERAB LES [facility] [address] [place] [address] * COLONOSCOPY (02/27/2020 8:05 AM CDT) 02/27/2020 8:05 AM CDT Narrative [facility] - 02/27/2020 9:[address] [facility] Patient Name: Rohan Carroll Procedure Date: 02/27/2020 8:05 AM Date of : 1945 Admit Type: Outpatient Age: 74 Room: [facility] Gender: Male Note Status: Finalized Attending [...] of the bowel preparation was ?excellent. The [id number] was introduced through the anus ?and advanced [...] 8:05 AM Stephani Aleman MD GI PROCEDURES [facility] ENDO * (ABNORMAL) LIPID PANEL (08/18/2019 9:23 AM ARCHITECTURAL TECHNICIAN) Cholesterol 96 0 - 200 mg/dL 08/18/2019 7:32 PM ARCHITECTURAL TECHNICIAN [facility] Triglycerides 65 30 - 150 mg/dL 08/18/2019 7:32 PM [facility] Cholesterol, LDL (Calculated) 45 0 - 159 mg/dL 08/18/2019 7:32 PM ARCHITECTURAL TECHNICIAN [facility] obopay [facility] Cholesterol, HDL 38(L) >40 mg/dL 08/18/19 20 7:32 PM [facility] Cholesterol, vLDL 13 mg/dL 020 7:32 PM [facility] Blood VENOUS BLOOD SPECIMEN / Unknown Venipuncture / Unknown 08/18/2019 9:23 AM ARCHITECTURAL TECHNICIAN 08/18/2019 9:23 AM ARCHITECTURAL TECHNICIAN Stephani Aleman MD LAB CHEMISTRY ALEN MORENO [facility] [address] [place] [address] from Last 3 Months or Most Recently Relevant to Health Maintenance Advance Directives Documents on File Type Date Recorded Patient Receiving Operator Expl anation Advanced Directives 08/23/2014 3:05 PM [facility] * Full Code (Latest Code Status on File) Date Activated Date Inactivated Comments 06/21/2017 3:50 PM 06/24/2017 4:37 PM * Full Code Date Activated Date Inactivated Comments 10/19/2016 4:45 PM 10/20/2016 8:57 PM * Full Code Date Activated Date Inactivated Comments 11/15/2015 11:16 PM 11/16/2015 11:46 AM Care Teams Claim Processor Relationship Specialty Start Date End Date Desiree Patrick MD [address] [place] [address] 08/09/17 Farrah Nicole APRN,LABORATORY WORKER [address] [place] [address] 08/09/17 Bry Echevarria MD [address] [place] [address] 08/09/17 Casey Berry II, DO 08/09/17 Shruti Vergara RN RN Registered Nurse 08/27/20 Additional Source Comments PLEASE NOTE: Replies to this message will not be received.[facility] and [facility]
--- OUTSIDE RECORDS SUMMARY | 2024-02-16 12:48 | XMS_ITS | Encounter Summary ---
Author Organization [employer] Address [address] [place] [address] Care Team Providers Care Bookkeeper Name Role Phone Jamal CARLISLE DO, Robert William Primary Care Provide r Unavailable Desiree Patrick MD Unavailable Farrah Nicole APRN,REAL ESTATE FINANCIAL ANALYST Unavailable Bry Echevarria MD Unavailable [phone] Jamal CARLISLE DO, Robert William Unavailable Unav Stephani Diaz MD Primary Care Provider Shruti Vergara RN Unavailable Unavailable Bianka Loera CNP Primary Care Provider [phone] Desiree Patrick MD Primary Care P rovider Encounter Details Date Type Department Care Team (Late st Contact Info) Description 06/23/2018 Historical Conversion [facility] Family Medicine [address] [place] [id number] Moon Maloney MD Social History Tobacco Use [...] MD - 07/22/2018 12:00 AM CST UROLOGY [facility] CRISTIAN BLEDSOE : 1945 HX: [id number] DOS: 07/22/2018 SUBJECTIVE: Cristian saw me on [...] Moon Maloney M.D./la-15 cc: Casey Berry II, D.O./[facility] Electronically signed by:Moon Maloney M.D. Jul 27 2018 9:15AM REHAB MANAGER * Moon Maloney MD - 06/23/2018 12:00 AM CST UROLOGY CRISTIAN BLEDSOE : [id number] 06/23/2018 SUBJECTIVE: Cristian comes to see me [...] short-term ADT. He is not on any VISUAL EFFECTS ARTIST. His most recent PSA was 0.051 so [...] Moon K. Gemar, M.D./mdh-14 cc: [facility] K[facility] Electronically signed by:Moon Maloney M.D. Jun 24 2018 12:40PM REHAB MANAGER documented in this encounter Plan of Treatment Not on file documented as of this encounter Visit Diagnoses Not on filedocumented in this encounter Care Teams Bookkeeper Relationship Specialty Start Date End Date Casey Berry II, DO PCP - General 11/22/06 08/17/19 Stephani Aleman MD PCP - General Family Medicine 08/18/19 09/16/20 Bianka Loera CNP [address] [place] [id number] PCP - General Nurse Practitioner Family 09/17/2001/10 Desiree Patrick MD [address] [place] [address] PCP - General Electrophysiology 02/23/22 03/09/22 Desiree Patrick MD [address] [place] [address] 08/09/17 Farrah Nicole APRN,REAL ESTATE FINANCIAL ANALYST [address] [place] [address] 08/09/17 Bry Echevarria MD [facility] [place] [address] 08/09/17 Casey Berry II, DO 08/09/17 Shruti Vergara RN RN Registered Nurse 08/27/20 documented as of this encounter Additional Source Comments PLEASE NOTE: Replies to this message will not be received.[facility] and [facility]
--- OUTSIDE RECORDS SUMMARY | 2024-02-16 12:48 | XMS_ITS | Encounter Summary ---
Author Organization [employer] Address [address] [place] [address] Care Team Providers Care Receiving Distribution Station Operator Name Role Phone Jamal CARLISLE DO, Robert William Primary Care Provide r Unavailable Desiree Patrick MD Unavailable Farrah Nicole APRN,LIAISON INSPECTION LABORATORY ASSISTANT Unavailable Bry Echevarria MD Unavailable Jamal CARLISLE DO, Robert William Unavailable Unav Stephani Diaz MD Primary Care Provider [phone] Shruti Vergara RN Unavailable Unavailable Bianka Loera CNP Primary Care Provider Desiree Patrick MD Primary Care P rovider Encounter Details Date Type Department Care Team (Late st Contact Info) Description 09/08/2018 Historical Conversion [facility] Family Medicine [address] [place] [address] Casey Berry II, DO Social History Tobacco [...] Comments Blood Pressure 122/74 09/08/2018 12:00 AM L D RN Pulse - - Temperature - - Respiratory Rate - - Oxygen Saturation - - Inhaled Oxygen Concentration - - Weight 92.8 kg (204 lb 9.7 oz) 09/08/2018 12:00 AM L D RN Height 184 cm (6' 0.44) 09/08/2018 12:00 AM L D RN Body Mass Index 27.41 09/08/2018 12:00 AM L D RN documented in this encounter Functional Status Functional [...] on filedocumented in this encounter Care Teams Receiving Distribution Station Operator Relationship Specialty Start Date End Date Casey Berry II, DO PCP - General 11/22/06 08/17/19 Stephani Aleman MD PCP - General Family Medicine 08/18/19 09/16/20 Bianka Loera CNP [address] [facility] [address] [place] [address] PCP - General Nurse Practitioner Family 09/17/2001/10 [place] [address] [place] [address] PCP - General Electrophysiology 02/23/22 03/09/22 Desiree Patrick MD [address] [facility] [place] [address] 08/09/17 Farrah Nicole APRN,LIAISON INSPECTION LABORATORY ASSISTANT [address] [facility] [place] [address] 08/09/17 Bry Echevarria MD [address] [place] [address] [place] [address] 08/09/17 Casey Berry II, DO 08/09/17 Shruti Vergara RN RN Registered Nurse 08/27/20 documented as of this encounter Additional Source Comments PLEASE NOTE: Replies to this message will not be received.[facility] and [facility]
--- OUTSIDE RECORDS SUMMARY | 2024-02-16 12:48 | XMS_ITS ---
Author Organization [employer] Address [address] [place] [address] Care Team Providers Care Electron Gun Assembler Name Role Phone Desiree Patrick MD Unavailable Farrah Nicole APRN,SOCIAL WORK PROGRAM COORDINATOR Unavailable Bry Echevarria MD Unavailable Jamal [...] 11/09/2018 Muscle tightness 11/09/2018 Bilateral foot-drop 11/09/2018 intermission coordinator (current) use of anticoagulants 2018 Encounter for monitoring dofetilide therapy 06/11 Atrial fibrillation (HCC) 06/21/2017 Essential hypertension 10/21/2016 Thoracic ascending aortic aneurysm 06/11/2016 Overview: 4.2 x 4.3 on [facility] CT Atrial flutter 11/15/2015 Esophageal dysmotility Overview: uses Reglan on a PRN basis Hearing loss Overview: wears hearing aids Hepatitis C antibody test positive Overview: negative quant RNA Current Oncology Plans No current plan information found. Past Plans No past plan information found. Radiation Treatments * No radiation treatments are documented for this patient in [facility]. Treatments may have been administered in [...]
--- OUTSIDE RECORDS SUMMARY | 2024-02-16 12:48 | XMS_ITS | Encounter Summary ---
Author Organization [employer] Address [address] [place] [address] Care Team Providers Care Doctor Of Naprapathy Name Role Phone Jamal CARLISLE DO, Robert William Primary Care Provide r Unavailable Desiree Patrick MD Unavailable Farrah Nicole APRN,COURT MANAGER Unavailable Bry Echevarria MD Unavailable [phone] Jamal CARLISLE DO, Robert William Unavailable Unav Stephani Diaz MD Primary Care Provider [phone] Shruti Vergara RN Unavailable Unavailable Bianka Loera CNP Primary Care Provider [phone] Desiree Patrick MD Primary Care P rovider Encounter Details Date Type Department Care Team (Late st Contact Info) Description 06/23/2018 Historical Conversion [facility] Family Medicine [address] [place] [address] Moon Maloney MD Social History Tobacco Use [...] Comments Blood Pressure 120/62 06/23/2018 12:00 AM MATERIAL DAMAGE ADJUSTER Pulse - - Temperature - - Respiratory Rate - - Oxygen Saturation - - Inhaled Oxygen Concentration - - Weight 93.5 kg (206 lb 2.1 oz) 06/23/2018 12:00 AM MATERIAL DAMAGE ADJUSTER Height - - Body Mass Index 27.2 06/20/2018 8:23 AM MATERIAL DAMAGE ADJUSTER documented in this encounter Functional Status Functional [...] on filedocumented in this encounter Care Teams Doctor Of Naprapathy Relationship Specialty Start Date End Date Casey Berry II, DO PCP - General 11/22/06 08/17/19 Stephani Aleman MD PCP - General Family Medicine 08/18/19 09/16/20 Bianka Loera CNP [address] [facility] [address] [place] [phone] PCP - General Nurse Practitioner Family 09/17/2001/10 [place] [address] [place] [phone] PCP - General Electrophysiology 02/23/22 03/09/22 Desiree Patrick MD [address] [place] [address] 08/09/17 Farrah Nicole APRN,COURT MANAGER [address] [place] [address] 08/09/17 Bry Echevarria MD [address] [place] [address] 08/09/17 Casey Berry II, DO 08/09/17 Shruti Vergara RN RN Registered Nurse 08/27/20 documented as of this encounter Additional Source Comments PLEASE NOTE: Replies to this message will not be received.[facility] and [facility]
--- OUTSIDE RECORDS SUMMARY | 2024-02-16 12:48 | XMS_ITS | Encounter Summary ---
Author Organization [facility] [employer] Address [address] [place] [address] Care Team Providers Care Gsa Coordinator Name Role Phone Desiree Patrick MD Unavailable Farrah Nicole APRN, CNS Unavailable Bry Echevarria MD Unavailable Jamal CARLISLE DO, Robert William Unavailable Unav ailable Shruti Vergara RN Unavailable Unavailable Desiree Patrick MD Primary Care P rovider Encounter Details Date Type Department Care Team (Late st Contact Info) Description 02/25/[address] [address] Social History Tobacco Use Types [...] How often do you attend chur or religion services? More than 4 times per year 04/04/2021 Do you belong to any clubs o r organizations such as taoism groups, unions, fraternal or athletic groups, or [...] and heating? Not hard at all 04/04/2021 [facility] [place] of Occupat ional Health - Occupational Stress [...] Master's degree (e.g., MA, MS, Mirlande, MEd, MANAGER SHIFT, ROHIT) 08/19/2020 Sex and Gender Information Value [...] on filedocumented in this encounter Care Teams Gsa Coordinator Relationship Specialty Start Date End Date Desiree Patrick MD [address] [place] [address] PCP - General Electrophysiology 02/23/22 03/09/22 Desiree Patrick MD [address] [place] [address] 08/09/17 Farrah Nicole APRN,TRANSPORT AIRCREWMAN [address] [place] [address] 08/09/17 Bry Echevarria MD [address] [place] [address] 08/09/17 Casey Berry II, DO 08/09/17 Shruti Vergara RN RN Registered Nurse 08/27/20 documented as of this encounter Additional Source Comments PLEASE NOTE: Replies to this message will not be received.[facility] and [facility]
--- OUTSIDE RECORDS SUMMARY | 2024-02-16 12:48 | XMS_ITS | Encounter Summary ---
Author Organization [employer] Address [address] [place] [address] Care Team Providers Care Beauty Consultant Name Role Phone Jamal CARLISLE DO, Robert William Primary Care Provide r Unavailable Desiree Patrick MD Unavailable Farrah Nicole APRN,PAPER TWISTER TENDER Unavailable Bry Echevarria MD Unavailable Jamal CARLISLE DO, Robert William Unavailable Unav Stephani Diaz MD Primary Care Provider Shruti Vergara RN Unavailable Unavailable Bianka Loera CNP Primary Care Provider Desiree Patrick MD Primary Care P rovider Encounter Details Date Type Department Care Team (Late st Contact Info) Description 06/13/2018 Historical Conversion [facility] Family Medicine [address] [place] [phone] Social History Tobacco Use Types Packs/Day Years [...] encounter Progress Notes * [facility], GENERICPROVIDER - 11/02/2018 12:00 AM CDT Balance [...] week. Joan Everett PTA/Kassy Barone PT, [place] #[id number] Electronically signed by:Joan Everett PTA Nov 02 2018 2:00PM SUBSTITUTE NURSE Budder/Recorder Electronically signed by:Trish Barone PT Nov 07 2018 4:43PM SUBSTITUTE NURSE * [facility] - 10/26/2018 12:00 AM [...] by:Joan Everett PTA Oct 28 2018 7:51AM SUBSTITUTE NURSE Budder/Recorder Electronically signed by:Trish Barone PT Oct 31 2018 7:01PM SUBSTITUTE NURSE * [facility] - 09/19/2018 12:00 AM CDT PHYSICAL THERAPY STUDENT NOTE BALANCE EVALUATION CRISTIAN BLEDSOE : 1945 HX: [id number] DOS: 09/19/2018 REFERRING PROVIDER: Casey Berry D.O. 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 He is currently [...] PATIENT RECEIVED: Patient received 30 minutes of tobb-eg-bulo evaluation with three or more comorbidities and three or more elements addressed. Clinical presentation is evolving and clinical complexity is moderate. Patient also received canalith repositioning maneuvers on this date. Lennox LEAHY/Trish Barone, PT #[id number] / lb-12 cc: Casey Berry D.O., [facility] Electronically signed by:Lennox Malagon Sep 20 2018 7:56PM SUBSTITUTE NURSE Co-author Electronically signed by:Lennox Malagon Sep 27 2018 8:39AM SUBSTITUTE NURSE Co-author Electronically signed by:Trish Barone PT Oct 02 2018 5:18PM SUBSTITUTE NURSE documented in this encounter Procedure Notes * [facility] - 10/26/2018 12:00 AM CDTAssociated Order(s): [...] by:Tiffani Carrero RN Oct 26 2018 4:16PM SUBSTITUTE NURSE * [facility] - 10/11/2018 12:00 AM CDTAssociated Order(s): ANTICOAGULATION [facility] Name: CRISTIAN BLEDSOE : 1945 DOS: [...] by:Tiffani Carrero RN Oct 11 2018 3:39PM SUBSTITUTE NURSE * [facility] - 09/07/2018 12:00 AM CSTAssociated Order(s): ANTICOAGULATION [facility] Name: CRISTIAN BLEDSOE : 1945 DOS: [...] by:Tiffani Carrero RN Sep 07 2018 3:31PM SUBSTITUTE NURSE * [facility] - 08/22/2018 12:00 AM CSTAssociated Order(s): ANTICOAGULATION Anticoagulation [facility] Name: CRISTIAN BLEDSOE : 1945 [...] by:Tiffani Carrero RN Aug 22 2018 2:48PM SUBSTITUTE NURSE * [facility], GENERICPROVIDER - 07/13/2018 12:00 AM CSTAssociated Order(s): ANTICOAGULATION [facility] Name: CRISTIAN BLEDSOE : 1945 DOS: [...] by:Tiffani Carrero RN Jul 13 2018 2:41PM SUBSTITUTE NURSE * [facility] - 06/13/2018 12:00 AM CSTAssociated Order(s): [...] Deborah Mandel RN; Jun 13 2018 12:37PM SUBSTITUTE NURSE documented in this encounter Plan of Treatment Not on file documented as of this encounter Procedures Procedure Name Priority Date/Time Associated Diagnosis Comments ANTICOAGULATION 10/26/2018 ANTICOAGULATION 10/11/2018 ANTICOAGULATION 09/07/2018 ANTICOAGULATION 08/22/2018 ANTICOAGULATION 07/13/2018 ANTICOAGULATION 06/13/2018 documented in this encounter Results * ANTICOAGULATION (10/26/2018) Narrative Procedure Note [facility], [facility] - 10/26/2018 12:00 AM CDT Name: [...] by:Tiffani Carrero RN Oct 26 2018 4:16PM [facility]STITUTE [facility] OTHER * ANTICOAGULATION (10/11/2018) Narrative Procedure Note [facility], GENERICPROGINADER - 10/11/2018 12:00 AM CDT [facility] Name: CRISTIAN BLEDSOE : 1945 DOS: [...] by:Tiffani Carrero RN Oct 11 2018 3:39PM SUBSTITUTE NURSE [facility] OTHER * ANTICOAGULATION (09/07/2018) Narrative Procedure Note [facility], [facility] - 09/07/2018 12:00 AM CST Anticoagulation [facility] Name: CRISTIAN BLEDSOE : 1945 [...] by:Tiffani Carrero RN Sep 07 2018 3:31PM SUBSTITUTE NURSE [facility] OTHER * ANTICOAGULATION (08/22/2018) Narrative Procedure Note [facility], [facility] - 08/22/2018 12:00 AM CST Anticoagulation [facility] Name: CRISTIAN BLEDSOE : 1945 [...] by:Tiffani Carrero RN Aug 22 2018 2:48PM SUBSTITUTE NURSE [facility] OTHER * ANTICOAGULATION (07/13/2018) Narrative Procedure Note [facility] - 07/13/2018 12:00 AM CST [facility] Name: CRISTIAN BLEDSOE : 1945 DOS: [...] by:Tiffani Carrero RN Jul 13 2018 2:41PM SUBSTITUTE NURSE [facility] OTHER * ANTICOAGULATION (06/13/2018) Narrative Procedure Note [facility] - 06/13/2018 12:00 AM CST ACC [...] Deborah Mandel RN; Jun 13 2018 12:37PM SUBSTITUTE NURSE Genericprovider [facility] OTHER documented in this encounter Visit Diagnoses Not on filedocumented in this encounter Care Teams Beauty Consultant Relationship Specialty Start Date End Date Casey Berry II, DO PCP - General 11/22/06 08/17/19 Stephani Aleman MD PCP - General Family Medicine 08/18/19 09/16/20 Bianka Loera CNP [address] [place] [phone] PCP - General Nurse Practitioner Family 09/17/2001/10 Desiree Patrick MD [address] [place] [address] PCP - General Electrophysiology 02/23/22 03/09/22 Desiree Patrick MD [address] [place] [address] 08/09/17 Farrah Nicole APRN,PAPER TWISTER TENDER [address] [place] [address] 08/09/17 Bry Echevarria MD [facility] [place] [address] 08/09/17 Casey Berry II DO 08/09/17 Shruti Vergara, RN RN Registered Nurse 08/27/20 documented as of this encounter Additional Source Comments PLEASE NOTE: Replies to this message will not be received.[facility] and [facility]
--- OUTSIDE RECORDS SUMMARY | 2024-02-16 12:49 | XMS_ITS | Encounter Summary ---
Author Organization [facility] Address [address] [place] [address] Care Team Providers Care Casting Operator Name Role Phone Jamal CARLISLE DO, Robert William Primary Care Provide r Unavailable Desiree Patrick MD Unavailable Farrah Nicole APRN,FINANCIAL COMPLIANCE OFFICER Unavailable Bry Echevarria MD Unavailable [phone] Jamal CARLISLE DO, Robert William Unavailable Unav xiable Stephani Aleman MD Primary Care Provider Shruti Vergara RN Unavailable Unavailable Bianka Loera CNP Primary Care Provider Desiree Patrick MD Primary Care P rovider Encounter Details Date Type Department Care Team (Late st Contact Info) Description 10/09/2016 Historical Conversion [facility] [address] [place] [address] Jana Aleman APRN,SUBSTANCE ABUSE RN [address] [place] [address] Social History Tobacco Use Types [...] this encounter Progress Notes * Jana Aleman, CLARIFYING PLANT OPERATOR,SUBSTANCE ABUSE RN - 10/09/2016 12:00 AM CDT Assessment 1. [...] Thao Phone Number to Contact Patient: : [phone] to Provider, Practice or Agency: : Either [facility] or [facility] Reason For Visit Patient in [...] 1 TABLET BY MOUTH ONCE DAILY; Therapy: [id number] to (Evaluate:[id number]) Requested for: 13Jul2016; Last Rx:13Jul2016 Ordered 3. Metoclopramide HCl - 5 MG Oral Tablet; TAKE 1 TABLET as needed; Therapy: 10Sep2014 to Requested for: [id number] Recorded 4. Metoprolol Tartrate 25 MG Oral Tablet; 1 prn a fib; Therapy: (Recorded:[id number]) to Requested for: [id number] Recorded 5. Tylenol Extra Strength 500 MG Oral Tablet; Therapy: (Recorded:[id number]) to Recorded 6. Warfarin Sodium 5 MG Oral Tablet; Take as directed by [facility]; Therapy: 66Sly5283 to (Evaluate:[id number]) Requested for: 14Jul2016 Recorded Allergies 1. Penicillins [...] RN CNP RN,NIKKI; Oct 18 2016 1:54PM PAMPHLET DISTRIBUTOR Electronically signed by : Casey Berry DO; Oct 22 2016 1:20PM PAMPHLET DISTRIBUTOR documented in this encounter Plan of Treatment Not on file documented as of this encounter Visit Diagnoses Not on filedocumented in this encounter Care Teams Casting Operator Relationship Specialty Start Date End Date Casey Berry II, DO PCP - General 11/22/06 08/17/19 Stephani Aleman MD PCP - General Family Medicine 08/18/19 09/16/20 Bianka Loera CNP [address] [facility] [address] [place] [address] PCP - General Nurse Practitioner Family 09/17/20 712/31 [place] [address] [place] [address] [place] [address] PCP - General Electrophysiology 02/23/22 03/09/22 Desiree Patrick MD [address] [place] [address] 08/09/17 Farrah Nicole, CLARIFYING PLANT OPERATOR,FINANCIAL COMPLIANCE OFFICER [address] [place] [address] 08/09/17 Bry Echevarria MD [address] [place] [address] [place] [address] 08/09/17 Casey Berry II, DO 08/09/17 Shruti Vergara RN RN Registered Nurse 08/27/20 documented as of this encounter Additional Source Comments PLEASE NOTE: Replies to this message will not be received.[facility]
--- OUTSIDE RECORDS SUMMARY | 2024-02-16 12:49 | XMS_ITS | Encounter Summary ---
Author Organization [employer] Address [address] [place] [address] Care Team Providers Care Africana Studies Professor Name Role Phone Jamal CARLISLE DO, Robert William Primary Care Provide r Unavailable Desiree Patrick MD Unavailable Farrah Nicole APRN,METER SUPERVISOR Unavailable [phone] Bry Echevarria MD Unavailable [phone] Jamal CARLISLE DO, Robert William Unavailable Unav Stephani Diaz MD Primary Care Provider Shruti Vergara RN Unavailable Unavailable Bianka Loera CNP Primary Care Provider Desiree Patrick MD Primary Care P rovider Encounter Details Date Type Department Care Team (Late st Contact Info) Description 02/03/2017 Historical Conversion [facility] [address] [place] [id number] Social History Tobacco Use Types Packs/Day Years [...] as of this encounter Procedure Notes * [facility] 12:00 AM CDTAssociated Order(s): ANTICOAGULATION [facility] Name: CRISTIAN BLEDSOE : 1945 [...] by:Tiffani Carrero RN Jan 05 2018 12:21PM MANAGER FINE * [facility] 12/21/2017 12:00 AM CDTAssociated Order(s): ANTICOAGULATION [facility] Name: CRISTIAN BLEDOSE : 1945 DOS: 12/21/2017 Cristian is a [...] by:Tiffani Carrero RN Dec 21 2017 8:31AM MANAGER FINE * [facility] - 11/24/2017 12:00 AM CDTAssociated Order(s): ANTICOAGULATION Anticoagulation [facility] Name: CRISTIAN BLEDSOE : [...] by:Tiffani Carrero RN Nov 24 2017 2:41PM MANAGER FINE * [facility] - 10/27/2017 12:00 AM CDTAssociated Order(s): ANTICOAGULATION Anticoagulation [facility] Name: CRISTIAN BLEDSOE : [...] muscle relaxer. He also reports that his artist relationship manager has changed his medications. Patient stales that he is no longer takingany rate control medications. INR tested today is therapeutic at 2.0 with the recommended range of 2.0 to 3.0. He will continue Coumadin at 5 mg daily with an INR recheck in one month, sooner for anychanges. Patient verbalizes understanding. Electronically signed by:Tiffani Carrero RN Oct 28 2017 7:02AM MANAGER FINE * [facility] - 09/29/2017 12:00 AM CDTAssociated Order(s): ANTICOAGULATION [facility] Name: CRISTIAN BLEDSOE : 1945 DOS: 09/29/2017 Cristian is a patient of Dr. Berry. He is here today for anticoagulation assessment and INR check for adiagnosis of atrial fibrillation. Patient states that he is feeling well. He denies any changes in medication. Patient reports that he continues to experience bradycardia and is working with his artist relationship manager to manage his beta blockers slowly. INR tested today is therapeutic at 2.1 with the recommended range of 2.0 to 3.0. He will continue Coumadin at 5 mg daily with an INR recheck in one month, sooner for any changes. Patient verbalizes understanding. Electronically signed by:Tiffani Carrero RN Sep 29 2017 2:09PM MANAGER FINE * [facility] - 09/15/2017 12:00 AM CSTAssociated Order(s): ANTICOAGULATION [facility] Name: CRISTIAN BLEDSOE : 1945 [...] that Dr. Berry will converse with his artist relationship manager to see if they should change some of his heart medications. Patient will call [facility] nurse with any updates. INR tested today is 1.9 with the recommended range of 2.0 to 3.0. He will adjust Coumadin to 5 mg daily with an INR recheck in two weeks. Patient verbalizes understanding. Electronically signed by:Tiffani Carrero RN Sep 15 2017 11:42AM MANAGER FINE * [facility] - 08/18/2017 12:00 AM CSTAssociated Order(s): ANTICOAGULATION [facility] Name: CRISTIAN BLEDSOE : 1945 [...] by:Tiffani Carrero RN Aug 18 2017 6:00PM MANAGER FINE * [facility] - 07/09/2017 12:00 AM CSTAssociated Order(s): ANTICOAGULATION [facility] Name: CRISTIAN BLEDSOE : 1945 [...] by:Tiffani Carrero RN Jul 09 2017 11:28AM MANAGER FINE * [facility] - 06/16/2017 12:00 AM CSTAssociated Order(s): ANTICOAGULATION [facility] Name: CRISTIAN BLEDSOE : 1945 DOS: 06/16/2017 This is a patient of Dr. Berry. He is here today for an anticoagulation assessment and INR check fora diagnosis of atrial fibrillation. He states that he has been feeling well. Patient denies any recent medication changes. He reports that he needs weekly INR checks per Dr. Patrick at [facility] in preparation for taking dofetilide and [...] by:Tiffani Carrero RN Jun 16 2017 4:18PM MANAGER FINE * [facility] - 06/09/2017 12:00 AM CSTAssociated Order(s): ANTICOAGULATION [facility] Name: CRISTIAN BLEDSOE : 1945 DOS: 06/09/2017 This is a patient of Dr. Berry. He is here today for an anticoagulation assessment and INR check fora diagnosis of atrial fibrillation. He states that he has been feeling well. Patient denies any recent medication changes. He reports that he needs weekly INR checks per Dr. Patrick at [facility] in preparation for taking dofetilide and [...] by:Tiffani Carrero RN Jun 09 2017 3:40PM MANAGER FINE * [facility] - 06/02/2017 12:00 AM CSTAssociated Order(s): ANTICOAGULATION [facility] Name: CRISTIAN BLEDSOE : 1945 DOS: 06/02/2017 This is a patient of Dr. Berry. He is here today for an anticoagulation assessment and INR check fora diagnosis of atrial fibrillation. He states that he has been feeling well. Patient denies any recent medication changes. He reports that he will need weekly INR checks per [facility] at [facility] in preparation for taking dofetilide and a [...] by:Tiffani Carrero RN Jun 02 2017 9:39AM MANAGER FINE AMENDMENTS: 1. current INR and Coumadin dosing. Electronically signed by:Tiffani Carrero RN Jun 09 2017 3:41PM MANAGER FINE * [facility] - 05/26/2017 12:00 AM CSTAssociated Order(s): ANTICOAGULATION [facility] Name: CRISTIAN BLEDSOE : 1945 DOS: 05/26/2017 This is a patient of Dr. Berry. He is here today for an anticoagulation assessment and INR check fora diagnosis of atrial fibrillation. He states that he has been feeling well. Patient denies any recent medication changes. He reports that he will need weekly INR checks per Dr. Patrick at [facility] in preparation for taking dofetilide and [...] by:Tiffani Carrero RN May 26 2017 9:42AM MANAGER FINE * [facility] - 05/19/2017 12:00 AM CSTAssociated Order(s): ANTICOAGULATION [facility] Name: CRISTIAN BLEDSOE : 1945 DOS: 05/19/2017 This is a patient of Dr. Berry. He is here today for an anticoagulation assessment and INR check fora diagnosis of atrial fibrillation. He states that he has been feeling well. Patient denies any recent medication changes. He reports that he will need weekly INR checks per Dr. Patrick at [facility] in preparation for taking dofetilide and [...] by:Tiffani Carrero RN May 19 2017 3:13PM MANAGER FINE * [facility] - 05/14/2017 12:00 AM CDTAssociated Order(s): ANTICOAGULATION Email communication received from patient today: ALLAN Vera, RN [facility] (direct phone) [phone] Per our phone conversation of yesterday afternoon, I will be having an initiation of Tikosyn (Dofetilide) at [facility] beginning on June 21. To prepare for this, my artist relationship manager,Dr. Desiree Patrick, has requested INR lab reports demonstrating 4 to 5 weeks of INR levels between 2.5 and 3 prior to the initiation of Tikosyn. Would you please fax my INR lab reports for the month of May to Tamika, Dr. Patrick???s nurse, at (fax) [phone]? The phone number for Dr. Patrick is [phone]. As we discussed, I will come in for INR testing each Wednesday morning at 9:30 AM to meet this requirement. Thank you, Anurag Bledsoe Electronically signed by:Tiffani Carrero RN May 14 2017 9:46AM MANAGER FINE * [facility] - 05/10/2017 12:00 AM CDTAssociated Order(s): ANTICOAGULATION [facility] Name: CRISTIAN BLEDSOE : 1945 DOS: 05/10/2017 This is a patient of Dr. Berry. He is here today for an anticoagulation assessment and INR check fora diagnosis of atrial fibrillation. He states that he has been feeling well. Patient denies any recent medication changes. He reports that he will need weekly INR checks per Dr. Patrick at [facility] in preparation for taking dofetilide and [...] by:Tiffani Carrero RN May 10 2017 3:11PM MANAGER FINE * [facility] - 04/06/2017 12:00 AM CDTAssociated Order(s): ANTICOAGULATION [facility] Name: CRISTIAN BLEDSOE : 1945 [...] by:Tiffani Carrero RN Apr 06 2017 12:37PM MANAGER FINE * [facility] - 03/03/2017 12:00 AM CDTAssociated Order(s): ANTICOAGULATION [facility] Name: CRISTIAN BLEDSOE : 1945 [...] He will have INR checked in the [place] lab prior to his appointment with Dr. Maloney. Patient verbalized understanding. Electronically signed by:Tiffani Carrero RN Mar 03 2017 12:02PM MANAGER FINE * [facility] - 02/03/2017 12:00 AM CDTAssociated Order(s): ANTICOAGULATION [facility] Name: CRISTIAN BLEDSOE : 1945 [...] by:Tiffani Carrero RN Feb 03 2017 10:11AM MANAGER FINE documented in this encounter Plan of Treatment [...] Results * ANTICOAGULATION (01/05/2018) Narrative Procedure Note [facility] - 01/05/2018 12:00 AM CDT Anticoagulation [facility] Name: CRISTIAN BLEDSOE : [...] by:Tiffani Carrero RN Jan 05 2018 12:21PM MANAGER FINE [facility] OTHER * ANTICOAGULATION (12/21/2017) Narrative Procedure Note [facility] - 12/21/2017 12:00 AM CDT Anticoagulation [facility] Name: CRISTIAN BLEDSOE : [...] by:Tiffani Carrero RN Dec 21 2017 8:31AM MANAGER FINE [facility] OTHER * ANTICOAGULATION (11/24/2017) Narrative Procedure Note [facility] - 11/24/2017 12:00 AM CDT Anticoagulation [facility] Name: CRISTIAN BLEDSOE : [...] by:Tiffani Carrero RN Nov 24 2017 2:41PM MANAGER FINE [facility] OTHER * ANTICOAGULATION (10/27/2017) Narrative Procedure Note [facility] - 10/27/2017 12:00 AM CDT Anticoagulation [facility] Name: CRISTIAN BLEDSOE : 1945 DOS: 10/27/2017 Cristian is a patient of Dr. Berry. He is here today for anticoagulationassessment and INR check for a diagnosis of atrial fibrillation. Patientstates that he has not been feeling well and has been suffering withspinal stenosis. He reports that he has been taking soma for a musclerelaxer. He also reports that his artist relationship manager has changed hismedications. Patient stales that he is no longer taking any rate controlmedications. INR tested today is therapeutic at 2.0 with the recommendedrange of 2.0 to 3.0. He will continue Coumadin at 5 mg daily with an INRrecheck in one month, sooner for any changes. Patient verbalizesunderstanding. Electronically signed by:Tiffani Carrero RN Oct 28 2017 7:02AM MANAGER FINE [facility] OTHER * ANTICOAGULATION (09/29/2017) Narrative Procedure Note [facility] 09/29/2017 12:00 AM CDT Anticoagulation [facility] Name: CRISTIAN BLEDSOE : 1945 DOS: 09/29/2017 Cristian is a patient of Dr. Berry. He is here today for anticoagulationassessment and INR check for a diagnosis of atrial fibrillation. Patientstates that he is feeling well. He denies any changes in medication.Patient reports that he continues to experience bradycardia and is workingwith his artist relationship manager to manage his beta blockers slowly. INR testedtoday is therapeutic at 2.1 with the recommended range of 2.0 to 3.0. Hewill continue Coumadin at 5 mg daily with an INR recheck in one month,sooner for any changes. Patient verbalizes understanding. Electronically signed by:Tiffani Carrero RN Sep 29 2017 2:09PM MANAGER FINE [facility] OTHER * ANTICOAGULATION (09/15/2017) Narrative Procedure Note [facility] - 09/15/2017 12:00 AM CST [facility] Name: CRISTIAN BLEDSOE : 1945 [...] statesthat Dr. Berry will converse with his artist relationship manager to see if they shouldchange some of his heart medications. Patient will call [facility] nurse with anyupdates. INR tested today is 1.9 with the recommended range of 2.0 to 3.0.He will adjust Coumadin to 5 mg daily with an INR recheck in two weeks.Patient verbalizes understanding. Electronically signed by:Tiffani Carrero RN Sep 15 2017 11:42AM MANAGER FINE [facility] OTHER * ANTICOAGULATION (08/18/2017) Narrative Procedure Note [facility] - 08/18/2017 12:00 AM CST Anticoagulation [facility] Name: CRISTIAN BLEDSOE : [...] by:Tiffani Carrero RN Aug 18 2017 6:00PM MANAGER FINE [facility] OTHER * ANTICOAGULATION (07/09/2017) Narrative Procedure Note [facility] - 07/09/2017 12:00 AM CST [facility]ticoagulation [facility] Name: CRISTIAN BLEDSOE : [...] by:Tiffani Carrero RN Jul 09 2017 11:28AM MANAGER FINE [facility] OTHER * ANTICOAGULATION (06/16/2017) Narrative Procedure Note [facility] - 06/16/2017 12:00 AM CST [facility] Name: CRISTIAN BLEDSOE : 1945 DOS: 06/16/2017 This is a patient of Dr. Berry. He is here today for an anticoagulationassessment and INR check for a diagnosis of atrial fibrillation. He statesthat he has been feeling well. Patient denies any recent medicationchanges. He reports that he needs weekly INR checks per Dr. Patrick [facility] in preparation for taking [...] by:Tiffani Carrero RN Jun 16 2017 4:18PM MANAGER FINE [facility] OTHER * ANTICOAGULATION (06/09/2017) Narrative Procedure Note [facility] 06/09/2017 12:00 AM CST [facility] Name: CRISTIAN BLEDSOE : 1945 DOS: 06/09/2017 This is a patient of Dr. Berry. He is here today for an anticoagulationassessment and INR check for a diagnosis of atrial fibrillation. He statesthat he has been feeling well. Patient denies any recent medicationchanges. He reports that he needs weekly INR checks per Dr. Patrick [facility] in preparation for taking [...] by:Tiffani Carrero RN Jun 09 2017 3:40PM MANAGER FINE Genericprovider [facility] OTHER * ANTICOAGULATION (06/02/2017) Narrative Procedure Note [facility] - 06/02/2017 12:00 AM CST [facility] Name: CRISTIAN BLEDSOE : 1945 DOS: 06/02/2017 This is a patient of Dr. Berry. He is here today for an anticoagulationassessment and INR check for a diagnosis of atrial fibrillation. He statesthat he has been feeling well. Patient denies any recent medicationchanges. He reports that he will need weekly INR checks per Dr. Valencia [facility] in preparation for taking dofetilide and [...] by:Tiffani Carrero RN Jun 02 2017 9:39AM MANAGER FINE AMENDMENTS: 1. current INR and Coumadin dosing. Electronically signed by:Tiffani Carrero RN Jun 09 2017 3:41PM MANAGER FINE [facility] OTHER * ANTICOAGULATION (05/26/2017) Narrative Procedure Note [facility] - 05/26/2017 12:00 AM CST Anticoagulation [facility] Name: CRISTIAN BLEDSOE : 1945 DOS: 05/26/2017 This is a patient of Dr. Berry. He is here today for an anticoagulationassessment and INR check for a diagnosis of atrial fibrillation. He statesthat he has been feeling well. Patient denies any recent medicationchanges. He reports that he will need weekly INR checks per Dr. Valencia [facility] in preparation for taking dofetilide and [...] by:Tiffani Carrero RN May 26 2017 9:42AM MANAGER FINE [facility] * [facility]ICO[facility]ULATION (05/19/2017) [facility]arrative [facility] 05/19/2017 12:00 AM CST [facility]tico[facility] Name: CRISTIAN BLEDSOE : 1945 DOS: 05/19/2017 This is a patient of Dr. Berry. He is here today for an anticoagulationassessment and INR check for a diagnosis of atrial fibrillation. He statesthat he has been feeling well. Patient denies any recent medicationchanges. He reports that he will need weekly INR checks per Dr. Valencia [facility] in preparation for taking dofetilide and [...] by:Tiffani Carrero RN May 19 2017 3:13PM MANAGER FINE Genericprovider [facility] OTHER * ANTICOAGULATION (05/14/2017) Narrative Procedure Note [facility] - 05/14/2017 12:00 AM CDT Email communication received from patient today: ALLAN Vera, RN [facility] (direct phone) [phone] Per our phone conversation of yesterday afternoon, I will be having aninitiation of Tikosyn (Dofetilide) at [facility] beginning June 21. To prepare for this, my artist relationship manager, Dr. Serra, has requested INR lab reports demonstrating 4 to 5 weeks ofINR levels between 2.5 and 3 prior to the initiation of Tikosyn. Would you please fax my INR lab reports for the month of May Oneil, Dr. Patrick? s nurse, at (fax) [phone]? The phone numberfor Dr. Patrick is [phone]. As we discussed, I will come in for INR testing each Wednesday morning at9:30 AM to meet this requirement. Thank you, Anurag Premapura Electronically signed by:Tiffani Carrero RN May 14 2017 9:46AM MANAGER FINE [facility] OTHER * ANTICOAGULATION (05/10/2017) Narrative Procedure Note [facility] - 05/10/2017 12:00 AM CDT Anticoagulation [facility] Name: CRISTIAN BLEDSOE : 1945 DOS: 05/10/2017 This is a patient of Dr. Berry. He is here today for an anticoagulationassessment and INR check for a diagnosis of atrial fibrillation. He statesthat he has been feeling well. Patient denies any recent medicationchanges. He reports that he will need weekly INR checks per Dr. Valencia [facility] in preparation for taking dofetilide and [...] by:Tiffani Carrero RN May 10 2017 3:11PM MANAGER FINE [facility] OTHER * ANTICOAGULATION (04/06/2017) Narrative Procedure Note [facility] - 04/06/2017 12:00 AM CDT Anticoagulation [facility] Name: CRISTIAN BLEDSOE : [...] by:Tiffani Carrero RN Apr 06 2017 12:37PM MANAGER FINE [facility] OTHER * ANTICOAGULATION (03/03/2017) Narrative Procedure Note [facility] - 03/03/2017 12:00 AM CDT Anticoagulation [facility] Name: CRISTIAN BLEDSOE : [...] changes. He willhave INR checked in the [place] lab prior to his appointment with . Patient verbalized understanding. Electronically signed by:Tiffani Carrero RN Mar 03 2017 12:02PM MANAGER FINE [facility] OTHER * ANTICOAGULATION (02/03/2017) Narrative Procedure Note [facility] - 02/03/2017 12:00 AM CDT Anticoagulation [facility] Name: CRISTIAN BLEDSOE : [...] by:Tiffani Carrero RN Feb 03 2017 10:11AM MANAGER FINE Genericprovider [facility] OTHER documented in this encounter Visit Diagnoses Not on filedocumented in this encounter Care Teams Africana Studies Professor Relationship Specialty Start Date End Date Casey Berry II, DO PCP - General 11/22/06 08/17/19 Stephani Aleman MD PCP - General Family Medicine 08/18/19 09/16/20 Bianka Loera CNP [address] [place] [address] [address] [place] [address] PCP - General Nurse Practitioner Family 09/17/2001/10 Desiree Patrick MD [address] [place] [address] PCP - General Electrophysiology 02/23/22 03/09/22 Desiree Patrick MD [address] [place] [address] 08/09/17 Farrah Nicole APRN,METER SUPERVISOR [address] [id number] 08/09/17 Bry Echevarria MD [address] [id number] 08/09/17 Casey Berry II, DO 08/09/17 Shruti Vergara RN RN Registered Nurse 08/27/20 documented as of this encounter Additional Source Comments PLEASE NOTE: Replies to this message will not be received.[facility]
--- OUTSIDE RECORDS SUMMARY | 2024-02-16 12:49 | XMS_ITS | Encounter Summary ---
Author Organization [employer] Address [address] [place] [address] Care Team Providers Care Insurance Agency Sales Manager Name Role Phone Jamal CARLISLE DO, Robert William Primary Care Provide r Unavailable Desiree Patrick MD Unavailable Farrah Nicole APRN,ROCK WOOL INSULATOR Unavailable Bry Echevarria MD Unavailable [phone] Jamal CARLISLE DO, Robert William Unavailable Unav Stephani Diaz MD Primary Care Provider Shruti Vergara RN Unavailable Unavailable Bianka Loera CNP Primary Care Provider Desiree Patrick MD Primary Care P rovider Encounter Details Date Type Department Care Team (Late st Contact Info) Description 12/31/2016 Historical Conversion [facility] Family Medicine [address] [address] Desiree Rubi PAC [address] [place] [address] Social History Tobacco Use Types [...] CST UROLOGY CRISTIAN LADI : 1945 HX: [id number] DOS: 08/31/2017 HISTORY OF PRESENT ILLNESS: Anurag is a 71-year-old gentleman who presents to the Urology clinic today. He previously had rubber nodularity on both sides of the prostate. He had a PSA velocitychange and his PCA3 test came back positive. A biopsy October 2016 showed a Olmstead 6 prostate cancerat the left base of the prostate involving 2% of the specimen. He also had Olmstead 7 cancer at the left mid-prostate involving 5% of the tissue, the right mid-prostate had Olmstead 7 cancer again involving 20% of the [...] 1. 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 He is status post EBRT [...] by:Desiree Rubi PA-C Sep 02 2017 5:01PM TANKER DRIVER * Desiree Rubi - 03/30/2017 12:00 AM CDT UROLOGY CRISTIAN BLEDSOE : 1945 HX: [id number] DOS: 03/30/2017 HISTORY OF PRESENT ILLNESS: 71-year-old [...] involving 2% of thespecimen. He had a Olmstead 7 cancer at the left mid prostate involving less than 5% of the tissue. The right mid prostate he had Curt 7 cancer involving 20% of the tissue in that area. [facility] a [place] 7 cancer involving 5% of the specimen. [...] Mare Rubi P.A.-C./ cc: Dr. Moon Maloney [facility] Radha Winslow [facility] Radiation Therapy Dept Dr. Casey Berry [facility] Radha Electronically signed by:Desiree Rubi PA-C Apr 02 2017 1:20PM TANKER DRIVER * Desiree uRbi - 12/31/2016 12:00 AM CDT UROLOGY CRISTIAN BLEDSOE : 1945 HX: [id number] DOS: 12/31/2016 HISTORY OF PRESENT ILLNESS: 71-year-old male who presents to the Urology clinic today. Hehad a velocity change with his PSA. On his prostate exam he had a rubbery nodularity on both sides.It was a symmetrical prostate. His PSA was monitored for a little while. In August he had a MANAGER SHIPPING 3test and that came back positive. He [...] Rubi P.A.-C./anna 28 cc: Dr. Moon Maloney [facility] Radha [facility]low [facility] Dr. Casey Berry [facility] Radha Electronically signed by:Desiree Rubi PA-C Jan 06 2017 4:31PM TANKER DRIVER Author documented in this encounter Plan of Treatment Not on file documented as of this encounter Visit Diagnoses Not on filedocumented in this encounter Care Teams Insurance Agency Sales Manager Relationship Specialty Start Date End Date Casey Berry II, DO PCP - General 11/22/06 08/17/19 Stephani Aleman MD PCP - General Family Medicine 08/18/19 09/16/20 Bianka Loera CNP [address] [place] [phone] PCP - General Nurse Practitioner Family 09/17/20 712/31 Desiree Patrick MD [address] [place] [address] PCP - General Electrophysiology 02/23/22 03/09/22 Desiree Patrick MD [address] [place] [address] 08/09/17 Farrah Nicole APRN,ROCK WOOL INSULATOR [address] [place] [address] 08/09/17 Bry Echevarria MD [address] [place] [address] 08/09/17 Casey Berry II, DO 08/09/17 Shruti Vergara, RN RN Registered Nurse 08/27/20 documented as of this encounter Additional Source Comments PLEASE NOTE: Replies to this message will not be received.[facility] and [facility]
--- OUTSIDE RECORDS SUMMARY | 2024-02-16 12:49 | XMS_ITS | Encounter Summary ---
Author Organization [facility] [employer] [facility] Address [address] [place] [address] Care Team Providers Care Marketing Communications Manager Name Role Phone Jamal CARLISLE DO, Robert William Primary Care Provide r Unavailable Desiree Patrick MD Unavailable Farrah Nicole APRN,EVENT ORGANIZER Unavailable Bry Echevarria MD Unavailable Jamal CARLISLE DO, Robert William Unavailable Unav Stephani Diaz MD Primary Care Provider Shruti Vergara RN Unavailable Unavailable Bianka Loera CNP Primary Care Provider Desiree Patrick MD Primary Care P rovider Encounter Details Date Type Department Care Team (Late st Contact Info) Description 12/31/2016 HIM Lens Grinder Apprentice [facility] V[facility] [address] [address] Gil Solares MD Social History Tobacco Use [...] ADULT WITH OR WITHOUT CONTRAST PERFORMED BY: [employer] [place], [place] SITE: [place], [place] INTERPRETED BY: [facility] [place], [place] TRANSTHORACIC ECHOCARDIOGRAM REPORT REFERRING DIAGNOSIS: Paroxysmal [...] fibrillation. Note: This study was performed by [employer] for [place]. Only the interpretation wasperformed at the [facility] [place]. Electronically signed Gil Solares MD, [facility] Traditional Chinese Herbalist , 04:45 P A kmg/Doc#: [id number] cc: Adult Normal Value Adult Patient Values [...] Blood pressure: 116/81 mmHg Previous study: 11/19/15 Manager Recruiting: WATSONG documented in this encounter Plan of [...] - 12/31/2016 12:00 AM CDT PERFORMED BY: [employer] [place], [place] SITE: [place] INTERPRETED BY: [facility] [place], [place] TRANSTHORACIC ECHOCARDIOGRAM REPORT REFERRING DIAGNOSIS: Paroxysmal [...] fibrillation. Note: This study was performed by [facility] for [place].Only the interpretation was performed at the [facility]. Electronically signed Gil Solares MD, [facility] Traditional Chinese Herbalist , 04:45 P A taylag/Doc#: [id number] cc: Adult Normal Value Adult Patient Values [...] dt 254 ms E' sept 6.04 cm/sec SIWC451 ms E/e' 10 E' lat 9.65 cm/sec IMPRESSION: Patient height: 185 cm Patient weight: 94 kg Blood pressure: 116/81 mmHg Previous study: 11/19/15 Manager Recruiting: HIEU Desiree NICHOLS documented in this encounter Visit Diagnoses Not on filedocumented in this encounter Care Teams Marketing Communications Manager Relationship Specialty Start Date End Date Casey Berry II, DO PCP - General 11/22/06 08/17/19 Stephani Aleman MD PCP - General Family Medicine 08/18/19 09/16/20 Bianka Loera, MARBLE COPER [address] [place] [phone] PCP - General Nurse Practitioner Family 09/17/20 712/31 Desiree Patrick MD [address] [place] [address] PCP - General Electrophysiology 02/23/22 03/09/22 Desiree Patrick MD [address] [place] [address] 08/09/17 Farrah Nicole APRN,EVENT ORGANIZER [address] [place] [address] 08/09/17 Bry Echevarria MD [address] [place] [place] [address] 08/09/17 Casey Berry II, DO 08/09/17 Shruti Vergara RN RN Registered Nurse 08/27/20 documented as of this encounter Additional Source Comments PLEASE NOTE: Replies to this message will not be received.[facility] and [facility], [facility]
--- OUTSIDE RECORDS SUMMARY | 2024-02-16 12:49 | XMS_ITS | Encounter Summary ---
Author Organization [employer] Address [address] [place] [address] Care Team Providers Care Flosser Name Role Phone Jamal CARLISLE DO, Robert William Primary Care Provide r Unavailable Desiree Patrick MD Unavailable Farrah Nicole APRN,BOTTLER Unavailable [phone] Bry Echevarria MD Unavailable Jamal CARLISLE DO, Robert William Unavailable Unav Stephani Diaz MD Primary Care Provider Shruti Vergara RN Unavailable Unavailable Bianka Loera CNP Primary Care Provider Desiree Patrick MD Primary Care P rovider Encounter Details Date Type Department Care Team (Late st Contact Info) Description 08/31/2017 Historical Conversion [facility] Family Medicine [address] [facility] [place] [address] Desiree Rubi PAC [address] [place] [address] Social History Tobacco Use Types [...] Comments Blood Pressure 112/60 08/31/2017 12:00 AM TAX AUDITOR Pulse - - Temperature - - Respiratory Rate - - Oxygen Saturation - - Inhaled Oxygen Concentration - - Weight 95.9 kg (211 lb 6.7 oz) 08/31/2017 12:00 AM TAX AUDITOR Height - - Body Mass Index 27.89 07/27/2017 2:42 PM TAX AUDITOR documented in this encounter Functional Status [...] on filedocumented in this encounter Care Teams Flosser Relationship Specialty Start Date End Date Casey Berry II, DO PCP - General 11/22/06 08/17/19 Stephani Aleman MD PCP - General Family Medicine 08/18/19 09/16/20 Bianka Loera CNP [address] [place] [address] 2 [place] [address] PCP - General Nurse Practitioner Family 09/17/20 712/31 Desiree Patrick MD [address] [place] [address] PCP - General Electrophysiology 02/23/22 03/09/22 Desiree Patrick MD [address] [place] [address] 08/09/17 Farrah Nicole APRN,BOTTLER [address] [place] [address] 08/09/17 Bry Echevarria MD [address] [place] [address] [place] [address] 08/09/17 Casey Berry II, DO 08/09/17 Shruti Vergara RN RN Registered Nurse 08/27/20 documented as of this encounter Additional Source Comments PLEASE NOTE: Replies to this message will not be received.[facility] and [facility]
--- OUTSIDE RECORDS SUMMARY | 2024-02-16 12:49 | XMS_ITS | Encounter Summary ---
Author Organization [employer] Address [address] [place] [address] Care Team Providers Care Pin Cleaner Name Role Phone Jamal CARLISLE DO, Robert William Primary Care Provide r Unavailable Desiree Patrick MD Unavailable Farrah Nicole APRN,CENTRAL PROCESSING TECHNICIAN Unavailable [phone] Bry Echevarria MD Unavailable Jamal CARLISLE DO, Robert William Unavailable Unav Stephani Diaz MD Primary Care Provider Shruti Vergara RN Unavailable Unavailable Bianka Loera CNP Primary Care Provider [phone] Desiree Patrick MD Primary Care P rovider Encounter Details Date Type Department Care Team (Late st Contact Info) Description 12/31/2016 Historical Conversion [facility] Family Medicine [address] [facility] [place] [address] Desiree Rubi PAC [address] [place] [address] Social History Tobacco Use Types [...] on filedocumented in this encounter Care Teams Pin Cleaner Relationship Specialty Start Date End Date Casey Berry II, DO PCP - General 11/22/06 08/17/19 Stephani Aleman MD PCP - General Family Medicine 08/18/19 09/16/20 Bianka Loera CNP [address] [facility] 2 [place] [address] PCP - General Nurse Practitioner Family 09/17/2001/10 Desiree Patrick MD [address] [place] [address] PCP - General Electrophysiology 02/23/22 03/09/22 Desiree Patrick MD [address] [place] [address] 08/09/17 Farrah Nicole APRN,CENTRAL PROCESSING TECHNICIAN [address] [place] [address] 08/09/17 Bry Echevarria MD [address] [place] [address] [place] [address] 08/09/17 Casey Berry II, DO 08/09/17 Shruti Vergara RN RN Registered Nurse 08/27/20 documented as of this encounter Additional Source Comments PLEASE NOTE: Replies to this message will not be received.[facility]
--- OUTSIDE RECORDS SUMMARY | 2024-02-16 12:49 | XMS_ITS | Encounter Summary ---
Author Organization [employer] Address [address] [place] [address] Care Team Providers Care Quality Assurance Monitor Chassis Name Role Phone Jamal CARLISLE DO, Robert William Primary Care Provide r Unavailable Desiree Patrick MD Unavailable Farrah Nicole APRN,CHIEF DEPUTY Unavailable Bry Echevarria MD Unavailable [phone] Jamal CARLISLE DO, Robert William Unavailable Unav Stephani Diaz MD Primary Care Provider Shruti Vergara RN Unavailable Unavailable Bianka Loera CNP Primary Care Provider [phone] Desiree Patrick MD Primary Care P rovider Encounter Details Date Type Department Care Team (Late st Contact Info) Description 10/26/2016 Historical Conversion [facility] Family Medicine [address] [place] [address] Casey Berry II, DO Social History Tobacco [...] on filedocumented in this encounter Care Teams Quality Assurance Monitor Chassis Relationship Specialty Start Date End Date Casey Berry II, DO PCP - General 11/22/06 08/17/19 Stephani Aleman MD PCP - General Family Medicine 08/18/19 09/16/20 Bianka Loera CNP [address] [place] [address] 2 [place] [phone] PCP - General Nurse Practitioner Family 09/17/2001/10 [place] [address] [place] [address] PCP - General Electrophysiology 02/23/22 03/09/22 Desiree Patrick, MD [address] [place] [address] 08/09/17 Farrah Nicole APRN,[facility] [address] [place] [address] 08/09/17 Bry Echevarria MD [address] [place], [place] [address] [address] 08/09/17 Casey Berry II, DO 08/09/17 Shruti Vergara RN RN Registered Nurse 08/27/20 documented as of this encounter Additional Source Comments PLEASE NOTE: Replies to this message will not be received.[facility] and [facility]
--- OUTSIDE RECORDS SUMMARY | 2024-02-16 12:49 | XMS_ITS | Encounter Summary ---
Author Organization [employer] Address [address] [place] [address] Care Team Providers Care Vice President Pharmacy Name Role Phone Jamal CARLISLE DO, Robert William Primary Care Provide r Unavailable Desiree Patrick MD Unavailable Farrah Nicole APRN,LIGHT INDUSTRIAL SUPERVISOR Unavailable Bry Echevarria MD Unavailable [phone] Jamal CARLISLE DO, Robert William Unavailable Unav Stephani Diaz MD Primary Care Provider Shruti Vergara RN Unavailable Unavailable Bianka Loera CNP Primary Care Provider Desiree Patrick MD Primary Care P rovider Encounter Details Date Type Department Care Team (Late st Contact Info) Description 04/06/2017 Historical Conversion [facility] Family Medicine [address] [place] [address] Casey Berry II, DO Social History Tobacco [...] on filedocumented in this encounter Care Teams Vice President Pharmacy Relationship Specialty Start Date End Date Casey Berry II, DO PCP - General 11/22/06 08/17/19 Stephani Aleman MD PCP - General Family Medicine 08/18/19 09/16/20 Bianka Loera CNP [address] [facility] 2 [place] [address] PCP - General Nurse Practitioner Family 09/17/2001/10 [place] [address] [place] [phone] PCP - General Electrophysiology 02/23/22 03/09/22 Desiree Patrick MD [address] [place] [address] 08/09/17 Farrah Nicole APRN,LIGHT INDUSTRIAL SUPERVISOR [address] [place] [address] 08/09/17 Bry Echevarria MD [address] [place] [address] 08/09/17 Casey Berry II, DO 08/09/17 Shruti Vergara RN RN Registered Nurse 08/27/20 documented as of this encounter Additional Source Comments PLEASE NOTE: Replies to this message will not be received.[facility] and [facility]
--- OUTSIDE RECORDS SUMMARY | 2024-02-16 12:49 | XMS_ITS | Encounter Summary ---
Author Organization [employer] Address [address] [place] [address] Care Team Providers Care Director Recreation Center Name Role Phone Jamal CARLISLE DO, Robert William Primary Care Provide r Unavailable Desiree Patrick MD Unavailable Farrah Nicole APRN,INTEGRATED SPECIALIST Unavailable Bry Echevarria MD Unavailable Jamal CARLISLE DO, Robert William Unavailable Unav Stephani Diaz MD Primary Care Provider [phone] Shruti Vergara RN Unavailable Unavailable Bianka Loera CNP Primary Care Provider Desiree Patrick MD Primary Care P rovider Encounter Details Date Type Department Care Team (Late st Contact Info) Description 06/25/2017 Historical Conversion [facility] Family Medicine [address] [place] [id number] Social History Tobacco Use Types Packs/Day Years [...] as of this encounter Progress Notes * [facility], GENERICPROVIDER - 06/25/2017 12:00 AM CST Medication Reconciliation Post Discharge Name: CRISTIAN BLEDSOE Date of Discharge: 06/24/2017 Current Meds 1. Digoxin 125 MCG Oral Tablet; Therapy: (Recorded:[id number]) to Recorded 2. DilTIAZem HCl - 60 MG Oral Tablet; TAKE 1 TABLET BY MOUTH DAILY; Therapy: 14Apr2017 to (Evaluate:[id number]) Requested for: [id number] Recorded 3. Dofetilide 250 MCG Oral Capsule; TAKE 1 CAPSULE TWICE DAILY; Therapy: (Recorded:[id number]) to Recorded 4. Metoclopramide HCl - 5 MG Oral Tablet (Reglan); TAKE 1 TABLET BY MOUTH THREE TIMES DAILY WITH MEALS; Therapy: 10Sep2014 to (Evaluate:17Sep2017) Requested for: 20May2017; Last Rx:20May2017 Ordered 5. Metoprolol Tartrate 50 MG Oral Tablet; TAKE 1 TABLET TWICE DAILY; Therapy: (Recorded:[id number]) to Recorded 6. Tylenol Extra Strength 500 MG Oral Tablet; Therapy: (Recorded:[id number]) to Recorded 7. Warfarin Sodium 5 MG Oral Tablet (Coumadin); Take as directed by [facility]; Therapy: [id number] to (Evaluate:28May2018) Requested for: 02Jun2017 Recorded Medication [...] INR checked next week. Reviewed 24 hour hole filler line, when to call PCP, and when to call 911. Patient voiced understanding. STACY Rasheed Follow-Up Recommendations Follow up with the following provider(s): cardiology 1 mo I reviewed with the patient the 24 hour nurse line and ecouraged them to call if they had any questions or concerns. Patient voiced understanding. Signatures Electronically signed by : Emma Estrella RN; Jun 25 2017 11:25AM REDEVELOPMENT MANAGER documented in this encounter Plan of Treatment Not on file documented as of this encounter Visit Diagnoses Not on filedocumented in this encounter Care Teams Director Recreation Center Relationship Specialty Start Date End Date Casey Berry II, DO PCP - General 11/22/06 08/17/19 Stephani Aleman MD PCP - General Family Medicine 08/18/19 09/16/20 Bianka Loera CNP [address] [facility] [address] [facility] [address] [place] [address] PCP - General Nurse Practitioner Family 09/17/20 7/12/31 Desiree Patrick MD [address] [place] [facility] [place] [address] PCP - General Electrophysiology 02/23/22 03/09/22 Desiree Patrick MD [address] [place] [facility] [place] [address] 08/09/17 Farrah Nicole APRN,INTEGRATED SPECIALIST [address] [place] [facility] [place] [address] 08/09/17 Bry Echevarria MD [facility] [place] [address] 08/09/17 Casey Berry II, DO 08/09/17 Shruti Vergara RN RN Registered Nurse 08/27/20 documented as of this encounter Additional Source Comments PLEASE NOTE: Replies to this message will not be received.[facility] and [facility]
--- OUTSIDE RECORDS SUMMARY | 2024-02-16 12:49 | XMS_ITS | Encounter Summary ---
Author Organization [employer] Address [address] [place] [address] Care Team Providers Care Chief Of Staff Name Role Phone Jamal CARLISLE DO, Robert William Primary Care Provide r Unavailable Desiree Patrick MD Unavailable Farrah Nicole APRN,FACTORY SUPERINTENDENT Unavailable [phone] Bry Echevarria MD Unavailable Jamal CARLISLE DO, Robert William Unavailable Unav Stephani Diaz MD Primary Care Provider [phone] Shruti Vergara RN Unavailable Unavailable Bianka Loera CNP Primary Care Provider Desiree Patrick MD Primary Care P rovider Encounter Details Date Type Department Care Team (Late st Contact Info) Description 07/01/2017 Historical Conversion [facility] Family Medicine [address] [place] [id number] Social History Tobacco Use Types Packs/Day Years [...] of this encounter Procedure Notes * [facility] DON[facility] - 06/14/2018 12:00 AM CSTAssociated Order(s): [...] by:Tiffani Carrero RN Jun 14 2018 7:43PM GLASSWARE MAKER * [facility] - 05/17/2018 12:00 AM CSTAssociated Order(s): ANTICOAGULATION [facility] Name: CRISTIAN BLEDSOE : 1945 DOS: [...] by:Tiffani Carrero RN May 17 2018 11:41AM GLASSWARE MAKER * [facility] 04/26/2018 12:00 AM CDTAssociated Order(s): ANTICOAGULATION [facility] Name: CRISTIAN BLEDSOE : 1945 DOS: [...] by:Tiffani Carrero RN Apr 26 2018 4:12PM GLASSWARE MAKER * [facility] 03/22/2018 12:00 AM CDTAssociated Order(s): ANTICOAGULATION [facility] Name: CRISTIAN BLEDSOE : 1945 DOS: [...] by:Tiffani Carrero RN Mar 22 2018 3:06PM GLASSWARE MAKER * [facility] DAYANNABRANDO - 02/23/2018 12:00 AM CDTAssociated Order(s): ANTICOAGULATION Anticoagulation [facility] Name: CRISTIAN BLEDSOE : 1945 DOS: [...] by:Tiffani Carrero RN Feb 23 2018 10:29AM GLASSWARE MAKER * [facility] DON[facility] - 02/09/2018 12:00 AM CDTAssociated Order(s): ANTICOAGULATION Anticoagulation [facility] Name: CRISTIAN BLEDSOE : 1945 DOS: 02/09/2018 Cristian is a patient of Dr. Berry. He is here today for anticoagulation assessment and INR check for adiagnosis of atrial fibrillation. Patient states that he has been feeling well. He denies any medication changes since his last INR check. Patient reports that he recently took a trip to [place] and forgot to take his Coumadin during the weekend. INR tested today is 1.8 with the recommended range of 2.0 to 3.0. Patient will continue Coumadin at 7.5 mg on Wednesdays and 5 mg all other days withan INR recheck in two weeks. Patient verbalizes understanding. Electronically signed by:Tiffani Carrero RN Feb 09 2018 4:06PM GLASSWARE MAKER * [facility] - 07/01/2017 12:00 AM CSTAssociated Order(s): ANTICOAGULATION Name: CRISTIAN BLEDSOE : 1945 DOS: 07/01/2017 Cristian is a patient of Dr. Berry. He is here today for anticoagulation assessment and INR check for adiagnosis of atrial fibrillation. Patient was seen in clinic by Dr. Echevarria today post cardioversion. Patient had a cardioversion on 06/24 at [facility] and he reports it went [...] by:Theresa Crowder RN Jul 01 2017 5:02PM GLASSWARE MAKER documented in this encounter Plan of Treatment Not on file documented as of this encounter Procedures Procedure Name Priority Date/Time Associated Diagnosis Comments ANTICOAGULATION 06/14/2018 ANTICOAGULATION 05/17/2018 ANTICOAGULATION 04/26/2018 ANTICOAGULATION 03/22/2018 ANTICOAGULATION 02/23/2018 ANTICOAGULATION 02/09/2018 ANTICOAGULATION 07/01/2017 documented in this encounter Results * ANTICOAGULATION (06/14/2018) Narrative Procedure Note [facility], MICHELLEPROVIBRANDO - 06/14/2018 12:00 AM CST Name: [...] by:Tiffani Carrero RN Jun 14 2018 7:43PM GLASSWARE MAKER [facility] OTHER * ANTICOAGULATION (05/17/2018) Narrative Procedure Note [facility] - 05/17/2018 12:00 AM CST Anticoagulation [facility] Name: CRISTIAN BLEDSOE : 1945 DOS: [...] by:Tiffani Carrero RN May 17 2018 11:41AM GLASSWARE MAKER [facility] OTHER * ANTICOAGULATION (04/26/2018) Narrative Procedure Note [facility] - 04/26/2018 12:00 AM CDT Anticoagulation [facility] Name: CRISTIAN BLEDSOE : 1945 DOS: [...] by:Tiffani Carrero RN Apr 26 2018 4:12PM GLASSWARE MAKER [facility] OTHER * ANTICOAGULATION (03/22/2018) Narrative Procedure Note [facility] - 03/22/2018 12:00 AM CDT Anticoagulation [facility] Name: CRISTIAN BLEDSOE : 1945 DOS: [...] by:Tiffani Carrero RN Mar 22 2018 3:06PM GLASSWARE MAKER [facility] OTHER * ANTICOAGULATION (02/23/2018) Narrative Procedure Note [facility] - 02/23/2018 12:00 AM CDT Anticoagulation [facility] Name: CRISTIAN BLEDSOE : 1945 DOS: [...] by:Tiffani Carrero RN Feb 23 2018 10:29AM GLASSWARE MAKER [facility] OTHER * ANTICOAGULATION (02/09/2018) Narrative Procedure Note [facility] - 02/09/2018 12:00 AM CDT [facility]tico[facility] Name: CRISTIAN BLEDSOE : 1945 DOS: [...] by:Tiffani Carrero RN Feb 09 2018 4:06PM GLASSWARE MAKER [facility] OTHER * ANTICOAGULATION (07/01/2017) Narrative Procedure Note [facility] - 07/01/2017 12:00 AM CST Name: CRISTIAN BLEDSOE : 1945 DOS: 07/01/2017 Cristian is a patient of Dr. Berry. He is here today for anticoagulationassessment and INR check for a diagnosis of atrial fibrillation. Patientwas seen in clinic by Dr. Echevarria today post cardioversion. Patient had acardioversion on 06/24 at [facility] and he reports it went [...] by:Theresa Crowder RN Jul 01 2017 5:02PM GLASSWARE MAKER [facility] OTHER documented in this encounter Visit Diagnoses Not on filedocumented in this encounter Care Teams Chief Of Staff Relationship Specialty Start Date End Date Casey Berry II, DO PCP - General 11/22/06 08/17/19 Stephani Aleman MD PCP - General Family Medicine 08/18/19 09/16/20 Bianka Loera DIRECTOR AUDIENCE MARKETING [address] [facility] 2 [place] [address] PCP - General Nurse Practitioner Family 09/17/2001/10 Desiree Patrick MD [address] [place] [address] PCP - General Electrophysiology 02/23/22 03/09/22 [place] [address] [place] [address] 08/09/17 Farrah Nicole APRN,ALEX [address] [place] [address] 08/09/17 Bry Echevarria MD [address] [place] [address] 08/09/17 Casey Berry II, DO 08/09/17 Shruti Vergara RN RN Registered Nurse 08/27/20 documented as of this encounter Additional Source Comments PLEASE NOTE: Replies to this message will not be received.[facility] and [facility]
--- OUTSIDE RECORDS SUMMARY | 2024-02-16 12:49 | XMS_ITS | Encounter Summary ---
Author Organization [employer] Address [address] [place] [address] Care Team Providers Care Assembler Carbon Brushes Name Role Phone Jamal CARLISLE DO, Robert William Primary Care Provide r Unavailable Desiree Patrick MD Unavailable Farrah Nicole APRN,INSULATION BATTING MACHINE OPERATOR Unavailable Bry Echevarria MD Unavailable Jamal CARLISLE DO, Robert William Unavailable Unav Stephani Diaz MD Primary Care Provider Shruti Vergara RN Unavailable Unavailable Bianka Loera CNP Primary Care Provider [phone] Desiree Patrick MD Primary Care P rovider Encounter Details Date Type Department Care Team (Late st Contact Info) Description 10/17/2016 Historical Conversion [facility] Family Medicine [address] [place] [address] Social History Tobacco Use Types Packs/Day Years [...] do you have serious difficulty hearing? Yes-slightly DIOMEDE 10/17/2016 Are you blind or do you [...] on filedocumented in this encounter Care Teams Assembler Carbon Brushes Relationship Specialty Start Date End Date Casey Berry II, DO PCP - General 11/22/06 08/17/19 Stephani Aleman MD PCP - General Family Medicine 08/18/19 09/16/20 Bianka Loera CNP [address] [place] [phone] PCP - General Nurse Practitioner Family 09/17/2001/10 [place] [address] [place] [address] PCP - General Electrophysiology 02/23/22 03/09/22 Desiree Patrick MD [address] [place] [address] 08/09/17 Farrah Nicole APRN,[facility] [address] [place] [address] 08/09/17 Bry Echevarria MD [address] [place] [address] [place] [address] 08/09/17 Casey Berry II, DO 08/09/17 Shruti Vergara RN RN Registered Nurse 08/27/20 documented as of this encounter Additional Source Comments PLEASE NOTE: Replies to this message will not be received.[facility]
--- OUTSIDE RECORDS SUMMARY | 2024-02-16 12:49 | XMS_ITS | Encounter Summary ---
Author Organization [employer] Address [address] [place] [address] Care Team Providers Care Injection Molding Process Technician Name Role Phone Jamal CARLISLE DO, Robert William Primary Care Provide r Unavailable Desiree Patrick MD Unavailable Farrah Nicole APRN,ACCOUNT CLERK Unavailable Bry Echevarria MD Unavailable Jamal CARLISLE DO, Robert William Unavailable Unav Stephani Diaz MD Primary Care Provider [phone] Shruti Vergara RN Unavailable Unavailable Bianka Loera CNP Primary Care Provider [phone] Desiree Patrick MD Primary Care P rovider Encounter Details Date Type Department Care Team (Late st Contact Info) Description 12/01/2016 Historical Conversion [facility] Family Medicine [address] [place] [address] Moon Maloney MD Social History Tobacco Use [...] in this encounter Care Teams Injection Molding Process Technician Relationship Specialty Start Date End Date Casey Berry II, DO PCP - General 11/22/06 08/17/19 Stephani Aleman MD PCP - General Family Medicine 08/18/19 09/16/20 Bianka Loera CNP [address] [place] [address] 2 [place] [phone] PCP - General Nurse Practitioner Family 09/17/2001/10 [place] [address] [place] [phone] PCP - General Electrophysiology 02/23/22 03/09/22 Desiree Patrick MD [address] [place] [address] 08/09/17 Farrah Nicole APRN,ACCOUNT CLERK [address] [place] [address] 08/09/17 Bry Echevarria MD [address] [place] [address] 08/09/17 Casey Berry II, DO 08/09/17 Shruti Vergara RN RN Registered Nurse 08/27/20 documented as of this encounter Additional Source Comments PLEASE NOTE: Replies to this message will not be received.[facility] and [facility]
--- OUTSIDE RECORDS SUMMARY | 2024-02-16 12:49 | XMS_ITS | Encounter Summary ---
Author Organization [employer] Address [address] [place] [address] Care Team Providers Care Underwear Welter Name Role Phone Jamal CARLISLE DO, Robert William Primary Care Provide r Unavailable Desiree Patrick MD Unavailable Farrah Nicole APRN,BODY AND FENDER MECHANIC Unavailable Bry Echevarria MD Unavailable Jamal CARLISLE DO, Robert William Unavailable Unav Stephani Diaz MD Primary Care Provider Shruti Vergara RN Unavailable Unavailable Bianka Loera CNP Primary Care Provider Desiree Patrick MD Primary Care P rovider Encounter Details Date Type Department Care Team (Late st Contact Info) Description 09/07/2017 Historical Conversion [facility] Family Medicine [address] [place] [address] Casey Berry II, DO Social History Tobacco [...] Comments Blood Pressure 144/85 09/07/2017 12:00 AM LAP WINDER Pulse - - Temperature - - Respiratory Rate - - Oxygen Saturation - - Inhaled Oxygen Concentration - - Weight 94.3 kg (207 lb 14.3 oz) 018 12:00 AM LAP WINDER Height 185.5 cm (6' 1.03) 09/07/2017 1 2:00 AM LAP WINDER Body Mass Index 27.4 09/07/2017 12:00 AM LAP WINDER documented in this encounter Functional Status Functional [...] on filedocumented in this encounter Care Teams Underwear Welter Relationship Specialty Start Date End Date Casey Berry II, DO PCP - General 11/22/06 08/17/19 Stephani Aleman MD PCP - General Family Medicine 08/18/19 09/16/20 Bianka Loera CNP [address] [facility] [address] [place] [address] PCP - General Nurse Practitioner Family 09/17/2001/10 [place] [address] [place] [address] PCP - General Electrophysiology 02/23/22 03/09/22 Desiree Patrick MD [address] [place] [address] 08/09/17 Farrah Nicole APRN,BODY AND FENDER MECHANIC [address] [place] [address] 08/09/17 Bry Echevarria MD [address] [place] [address] [place] [address] 08/09/17 Casey Berry II, DO 08/09/17 Shruti Vergara RN RN Registered Nurse 08/27/20 documented as of this encounter Additional Source Comments PLEASE NOTE: Replies to this message will not be received.[facility] and [facility]
--- OUTSIDE RECORDS SUMMARY | 2024-02-16 12:49 | XMS_ITS | Encounter Summary ---
Author Organization [email or web address] Address [address] [place] [address] Care Team Providers Care Guest Experience Representative Name Role Phone Jamal CARLISLE DO, Robert William Primary Care Provide r Unavailable Desiree Patrick MD Unavailable Farrah Nicole APRN,PRECISION LENS GENERATOR Unavailable Bry Echevarria MD Unavailable Jamal CARLISLE DO, Robert William Unavailable Unav Stephani Diaz MD Primary Care Provider Shruti Vergara RN Unavailable Unavailable Bianka Loera CNP Primary Care Provider Desiree Patrick MD Primary Care P rovider Encounter Details Date Type Department Care Team (Late st Contact Info) Description 11/30/2016 Historical Conversion [facility] Family Medicine [address] [place] [address] Casey Berry II, DO Social History Tobacco [...] on filedocumented in this encounter Care Teams Guest Experience Representative Relationship Specialty Start Date End Date Casey Berry II, DO PCP - General 11/22/06 08/17/19 Stephani Alemna MD PCP - General Family Medicine 08/18/19 09/16/20 Bianka Loera CNP [address] [place] [address] 2 [place] [phone] PCP - General Nurse Practitioner Family 09/17/2001/10 [place] [address] [place] [address] PCP - General Electrophysiology 02/23/22 03/09/22 Desiree Patrick MD [address] [place] [address] 08/09/17 Farrah Nicole APRN,PRECISION LENS GENERATOR [address] [place] [address] 08/09/[address] [facility] [place] [address] 08/09/17 Casey Berry II, DO 08/09/17 Shruti Vergara RN RN Registered Nurse 08/27/20 documented as of this encounter Additional Source Comments PLEASE NOTE: Replies to this message will not be received.[facility] and [facility]
--- OUTSIDE RECORDS SUMMARY | 2024-02-16 12:49 | XMS_ITS | Encounter Summary ---
Author Organization [employer] Address [address] [place] [address] Care Team Providers Care Depositing Machine Operator Name Role Phone Jamal CARLISLE DO, Robert William Primary Care Provide r Unavailable Desiree Patrick MD Unavailable Farrah Nicole APRN,BASKET FILLER Unavailable Bry Echevarria MD Unavailable Jamal CARLISLE DO, Robert William Unavailable Unav Stephani Diaz MD Primary Care Provider Shruti Vergara RN Unavailable Unavailable Bianka Loera CNP Primary Care Provider [phone] Desiree Patrick MD Primary Care P rovider Encounter Details Date Type Department Care Team (Late st Contact Info) Description 10/18/2017 Historical Conversion [facility] Family Medicine [address] [place] [address] Casey Berry II, DO Social History Tobacco [...] Body Mass Index 27.09 09/07/2017 12:00 AM YARD JOCKEY documented in this encounter Functional Status Functional [...] on filedocumented in this encounter Care Teams Depositing Machine Operator Relationship Specialty Start Date End Date Casey Berry II, DO PCP - General 11/22/06 08/17/19 Stephani Aleman MD PCP - General Family Medicine 08/18/19 09/16/20 Bianka Loera CNP [address] [facility] 2 [place] [phone] PCP - General Nurse Practitioner Family 09/17/2001/10 [place] [address] [place] [address] PCP - General Electrophysiology 02/23/22 03/09/22 Desiree Patrick MD [address] [place] [address] 08/09/17 Farrah Nicole APRN,BASKET FILLER [address] [place] [address] 08/09/17 Bry Echevarria MD [address] [place] [address] 08/09/17 Casey Berry II, DO 08/09/17 Shruti Vergara RN RN Registered Nurse 08/27/20 documented as of this encounter Additional Source Comments PLEASE NOTE: Replies to this message will not be received.[facility]
--- OUTSIDE RECORDS SUMMARY | 2024-02-16 12:49 | XMS_ITS | Encounter Summary ---
Author Organization [employer] Address [address] [place] [address] Care Team Providers Care Credit Collections Specialist Name Role Phone Jamal CARLISLE DO, Robert William Primary Care Provide r Unavailable Desiree Patrick MD Unavailable Farrah Nicole APRN,PRACTICE PERFORMANCE MANAGER Unavailable Bry Echevarria MD Unavailable Jamal CARLISLE DO, Robert William Unavailable Unav Stephani Diaz MD Primary Care Provider [phone] Shruit Vergara RN Unavailable Unavailable Bianka Loera CNP Primary Care Provider Desiree Patrick MD Primary Care P rovider Encounter Details Date Type Department Care Team (Late st Contact Info) Description 07/01/2017 Historical Conversion [facility] Family [facility] [address] [facility] [place] [address] Bry Echevarria MD [address] [place] [address] Social History Tobacco Use [...] ap pointment with the anticoagulation clinic in [facility] on July 09, 2017.[facility] [place] [facility] and updated [facility]. The medicine list was reconciled. History of Present Illness Mr Carroll is a 71-year-old white male who comes to my on-call internal medicine clinic today forfollow-up of her recent hospitalization. His primary care physician is Dr. Berry. The patient was hospitalized in [place] last week and he underwent a cardioversion with the dofetilide. He is now onthat medication twice a day. His INR was slightly elevated at 3.2 when he was up in [place]. He was told to come in today for an INR check. He has not had any problems with bleeding. We did check his anticoagulation and his INR was therapeutic at 2.8. He will follow-up with the anticoagulation clinic in [facility] in 8 days and he [...] in atrial fibrillation.He is following up with [place] cardiology in 1 month. Allergies 1. Penicillins 2. Sulfa Drugs Vitals Vital Signs Recorded: [id number] 02:41PM Systolic 136, LUE, Sitting Diastolic 70, [...] questions appropriately. Results/Data Results, Free Text - [facility]: is therapeutic at 2.8. Signatures Electronically signed by : Bry Echevarria M.D.; Jul 01 2017 3:31PM FOWL BLOOD TESTER (Author) documented in this encounter Plan of Treatment Not on file documented as of this encounter Visit Diagnoses Not on filedocumented in this encounter Care Teams Credit Collections Specialist Relationship Specialty Start Date End Date Casey Berry II, DO PCP - General 11/22/06 08/17/19 Stephani Aleman MD PCP - General Family Medicine 08/18/19 09/16/20 Bianka Loera, CHILD AND FAMILY SERVICES WORKER [address] [place] [phone] PCP - General Nurse Practitioner Family 09/17/20 712/31 Desiree Patrick MD [address] [place] [address] PCP - General Electrophysiology 02/23/22 03/09/22 Desiree Patrick MD [address] [place] [address] 08/09/17 Farrah Nicole, IMAGING TECHNICIAN,[facility] [address] [place] [address] 08/09/17 Bry Echevarria MD [address] [place] [address] [place] [phone] 08/09/17 Casey Berry II, DO 08/09/17 Shruti Vergara, RN RN Registered Nurse 08/27/20 documented as of this encounter Additional Source Comments PLEASE NOTE: Replies to this message will not be received.[facility] and [facility]
--- OUTSIDE RECORDS SUMMARY | 2024-02-16 12:49 | XMS_ITS | Encounter Summary ---
Author Organization [employer] Address [address] [place] [address] Care Team Providers Care Cost Specialist Name Role Phone Jamal CARLISLE DO, Robert William Primary Care Provide r Unavailable Desiree Patrick MD Unavailable Farrah Nicole APRN,CHASSIS ENGINEER Unavailable Bry Echevarria MD Unavailable [phone] Jamal CARLISLE DO, Robert William Unavailable Unav Stephani Diaz MD Primary Care Provider Shruti Vergara RN Unavailable Unavailable Bianka Loera CNP Primary Care Provider Desiree Patrick MD Primary Care P rovider Encounter Details Date Type Department Care Team (Late st Contact Info) Description 07/01/2017 Historical Conversion [facility] Family [facility] [address] [facility] [place] [address] Bry Echevarria MD [address] [place] [address] Social History Tobacco Use Types [...] Comments Blood Pressure 136/70 07/01/2017 12:00 AM [employer] Pulse - - Temperature - - Respiratory Rate - - Oxygen Saturation - - Inhaled Oxygen Concentration - - Weight 97.6 kg (215 lb 2.7 oz) 07/01/2017 12:00 AM [employer] Height - - Body Mass Index 28.39 06/21/2017 2:27 PM [employer] documented in this encounter Functional Status Functional [...] on filedocumented in this encounter Care Teams Cost Specialist Relationship Specialty Start Date End Date Casey Berry II, DO PCP - General 11/22/06 08/17/19 Stephani Aleman MD PCP - General Family Medicine 08/18/19 09/16/20 Bianka Loera CNP [address] [facility] 2 [place] [address] PCP - General Nurse Practitioner Family 09/17/2001/10 Desiree Patrick MD [address] [place] [address] PCP - General Electrophysiology 02/23/22 03/09/22 Desiree Patrick MD [address] [place] [address] 08/09/17 Farrah Nicole APRN,CHASSIS ENGINEER [address] [place] [address] 08/09/17 Bry Echevarria MD [address] [place] [address] [place] [address] 08/09/17 Casey Berry II, DO 08/09/17 Shruti Vergara RN RN Registered Nurse 08/27/20 documented as of this encounter Additional Source Comments PLEASE NOTE: Replies to this message will not be received.[facility] and [facility]
--- OUTSIDE RECORDS SUMMARY | 2024-02-16 12:49 | XMS_ITS | Encounter Summary ---
Author Organization [employer] Address [address] [place] [address] Care Team Providers Care Electrolysist Name Role Phone Jamal CARLISLE DO, Robert William Primary Care Provide r Unavailable Desiree Patrick MD Unavailable Farrah Nicole APRN,CAN OPERATOR Unavailable [phone] Bry Echevarria MD Unavailable [phone] Jamal CARLISLE DO, Robert William Unavailable Unav Stephani Diaz MD Primary Care Provider [phone] Shruti Vergara RN Unavailable Unavailable Bianka Loera CNP Primary Care Provider [phone] Desiree Patrick MD Primary Care P rovider Encounter Details Date Type Department Care Team (Late st Contact Info) Description 03/30/2017 Historical Conversion [facility] Family Medicine [address] [facility] [place] [address] Desiree Rubi PAC [address] [place] [address] Social History Tobacco Use Types [...] on filedocumented in this encounter Care Teams Electrolysist Relationship Specialty Start Date End Date Casey Berry II, DO PCP - General 11/22/06 08/17/19 Stephani Aleman MD PCP - General Family Medicine 08/18/19 09/16/20 Bianka Loera CNP [address] [place] [address] 2 [place] [address] PCP - General Nurse Practitioner Family 09/17/20 712/31 Desiree Patrick MD [address] [place] [address] PCP - General Electrophysiology 02/23/22 03/09/22 Desiree Patrick MD [address] [place] [address] 08/09/17 Farrah Nicole APRN,CAN OPERATOR [address] [place] [address] 08/09/17 Bry Echevarria MD [address] [place] [address] 08/09/17 Casey Berry II, DO 08/09/17 Shruti Vergara RN RN Registered Nurse 08/27/20 documented as of this encounter Additional Source Comments PLEASE NOTE: Replies to this message will not be received.[facility] and [facility]
--- OUTSIDE RECORDS SUMMARY | 2024-02-16 12:49 | XMS_ITS | Encounter Summary ---
Author Organization [employer] Address [address] [place] [address] Care Team Providers Care Auto Fleet Manager Name Role Phone Jamal CARLISLE DO, Robert William Primary Care Provide r Unavailable Desiree Patrick MD Unavailable Farrah Nicole APRN,KILN REPAIRER Unavailable [phone] Bry Echevarria MD Unavailable Jamal CARLISLE DO, Robert William Unavailable Unav Stephani Diaz MD Primary Care Provider Shruti Vergara RN Unavailable Unavailable Bianka Loera CNP Primary Care Provider Desiree Patrick MD Primary Care P rovider Encounter Details Date Type Department Care Team (Late st Contact Info) Description 10/21/2016 Historical Conversion [facility] Family Medicine [address] [place] [address] Social History Tobacco Use Types Packs/Day Years [...] filedocumented in this encounter Care Teams Auto Fleet Manager Relationship Specialty Start Date End Date Casey Berry II, DO PCP - General 11/22/06 08/17/19 Stephani Aleman MD PCP - General Family Medicine 08/18/19 09/16/20 Bianka Loera CNP [address] [place] [phone] PCP - General Nurse Practitioner Family 09/17/2001/10 Desiree Patrick MD [address] [place] [address] PCP - General Electrophysiology 02/23/22 03/09/22 Desiree Patrick MD [address] [place] [address] 08/09/17 Farrah Nicole APRN,KILN REPAIRER [address] [place] [address] 08/09/17 Bry Echevarria MD [address] [place] [address] 08/09/17 Casey Berry II, DO 08/09/17 Shruti Vergara RN RN Registered Nurse 08/27/20 documented as of this encounter Additional Source Comments PLEASE NOTE: Replies to this message will not be received.[facility] and [facility]
--- OUTSIDE RECORDS SUMMARY | 2024-02-16 12:49 | XMS_ITS | Encounter Summary ---
Author Organization [email or web address] Address [address] [place] [address] Care Team Providers Care Mobile Game Engineer Name Role Phone Jamal CARLISLE DO, Robert William Primary Care Provide r Unavailable Desiree Patrick MD Unavailable Farrah Nicole APRN,FOURDRINIER TENDER Unavailable Bry Echevarria MD Unavailable Jamal CARLISLE DO, Robert William Unavailable Unav Stephani Diaz MD Primary Care Provider Shruti Vergara RN Unavailable Unavailable Bianka Loera CNP Primary Care Provider Desiree Patrick MD Primary Care P rovider Encounter Details Date Type Department Care Team (Late st Contact Info) Description 11/06/2016 Historical Conversion [facility] Family Medicine [address] [place] [address] Moon Maloney MD Social History Tobacco Use [...] on filedocumented in this encounter Care Teams Mobile Game Engineer Relationship Specialty Start Date End Date Casey Berry II, DO PCP - General 11/22/06 08/17/19 Stephani Aleman MD PCP - General Family Medicine 08/18/19 09/16/20 Bianka Loera CNP [address] [place] [address] 2 [place] [phone] PCP - General Nurse Practitioner Family 09/17/2001/10 Desiree Patrick MD [address] [place] [address] PCP - General Electrophysiology 02/23/22 03/09/22 Desiree Patrick MD [address] [place] [address] 08/09/17 Farrah Nicole APRN,FOURDRINIER TENDER [address] [place] [address] 08/09/17 Bry Echevarria MD [address] [place] [address] 08/09/17 Casey Berry II, DO 08/09/17 Shruti Vergara RN RN Registered Nurse 08/27/20 documented as of this encounter Additional Source Comments PLEASE NOTE: Replies to this message will not be received.[facility] and [facility]
--- OUTSIDE RECORDS SUMMARY | 2024-02-16 12:49 | XMS_ITS | Encounter Summary ---
Author Organization [employer] Address [address] [place] [address] Care Team Providers Care Vegetable Picker Name Role Phone Jamal CARLISLE DO, Robert William Primary Care Provide r Unavailable Desiree Patrick MD Unavailable Farrah Nicole APRN,GAS MAKER HELPER Unavailable Bry Echevarria MD Unavailable Jamal CARLISLE DO, Robert William Unavailable Unav Stephani Diaz MD Primary Care Provider Shruti Vergara RN Unavailable Unavailable Bianka Loera CNP Primary Care Provider Desiree Patrick MD Primary Care P rovider Encounter Details Date Type Department Care Team (Late st Contact Info) Description 09/07/2017 Historical Conversion [facility] Family Medicine [address] [place] [address] Casey Berry II, DO Social History Tobacco [...] Bilateral leg pain History of Present Illness Alrfdbw-mrw-oodi-old male who states that he was shoveling [...] TAKE 1 CAPSULE EVERY 12 HOURS; Last Rx:[id number] Ordered 2. Lisinopril 10 MG Oral Tablet; TAKE ONE TABLET DAILY; Therapy: 18Oct2017 to Recorded 3. Metoclopramide HCl - 5 MG Oral Tablet; TAKE 1 TABLET BY MOUTH THREE TIMES DAILY WITH MEALS NEEDED; Therapy: 10Sep2014 to (Evaluate:29Oct2017) Requested for: 86Mbt2024; Last Rx:[id number] Ordered 4. Polyethylene Glycol 3350 Oral Powder; take 17 grams in 8 ounces of fluid once daily as needed for constipation; Therapy: 32Mky4978 to (Evaluate:27May2018); Last Rx:[id number] Ordered 5. Triamcinolone Acetonide 0.1 % External Lotion; APPLY 2-3 TIMES DAILY TO AFFECTED AREA(S); Therapy: 30Bio7949 to (Last Rx:[id number]) Requested for: 55Rbv5642 Ordered 6. Warfarin Sodium 5 MG Oral Tablet; Take as directed by ACC; Therapy: 81Uev8660 to (Evaluate:10Sep2018) Requested for: 15Sep2017 Recorded Allergies [...] Casey Berry DO; Oct 25 2017 10:02AM SERVICE CONSULTANT documented in this encounter H&P Notes * Casey Beryr MAYLIN, - 09/07/2017 12:00 AM CST Assessment [...] healthy by no longer smoking.; Status:Complete; Done: [id number] Reason For Visit Routine history and physical. [...] DAILY; Therapy: 14Apr2017 to (Evaluate:27May2018) Requested for: 12Zqr1309; Last Rx:[id number] Ordered 3. Dofetilide 250 MCG Oral Capsule; TAKE 1 CAPSULE EVERY 12 HOURS; Last Rx:[id number] Ordered 4. Metoclopramide HCl - 5 MG Oral Tablet; TAKE 1 TABLET BY MOUTH THREE TIMES DAILY WITH MEALS NEEDED; Therapy: 10Sep2014 to (Evaluate:29Oct2017) Requested for: 88Dxj8622; Last Rx:[id number] Ordered 5. Metoprolol Tartrate 50 MG Oral Tablet; TAKE 1/2 TABLET TWICE DAILY; Therapy: (Recorded:61Vhh4548) to Recorded 6. Polyethylene Glycol 3350 Oral Powder; take 17 grams in 8 ounces of fluid once daily as needed for constipation; Therapy: 01Jul2017 to (Evaluate:27May2018); Last Rx:[id number] Ordered 7. Warfarin Sodium 5 MG Oral Tablet; Take as directed by ACC; Therapy: 31Gns3347 to (Evaluate:28May2018) Requested for: 02Jun2017 Recorded Allergies 1. Penicillins 2. Sulfa Drugs PENICILLIN AND SULFA. Immunizations Prevnar in 2016. Pneumovax in 2009. Tetanus in 2013. Shingles in 2009. Vitals Recorded: 91Pan3340 08:20AM Systolic 144 Diastolic 85 Heart Rate [...] Casey Berry DO; Sep 20 2017 7:51AM SERVICE CONSULTANT documented in this encounter Plan of Treatment Not on file documented as of this encounter Visit Diagnoses Not on filedocumented in this encounter Care Teams Vegetable Picker Relationship Specialty Start Date End Date Casey Berry II, DO PCP - General 11/22/06 08/17/19 Stephani Aleman MD PCP - General Family Medicine 08/18/19 09/16/20 Bianka Loera CNP [address] [place] [address] 2 [place] [phone] PCP - General Nurse Practitioner Family 09/17/2001/10 [place] [address] [place] [phone] PCP - General Electrophysiology 02/23/22 03/09/22 Desiree Patrick MD [address] [place] [address] 08/09/17 Farrah Nicole APRN,GAS MAKER HELPER [address] [place] [address] 08/09/17 Bry Echevarria MD [address] [place] [address] 08/09/17 Casey Berry II, DO 08/09/17 Shruti Vergara RN RN Registered Nurse 08/27/20 documented as of this encounter Additional Source Comments PLEASE NOTE: Replies to this message will not be received.[facility] and [facility]
--- OUTSIDE RECORDS SUMMARY | 2024-02-16 12:49 | XMS_ITS | Encounter Summary ---
Author Organization [employer] Address [address] [place] [address] Care Team Providers Care Sheeter Helper Name Role Phone Jamal CARLISLE DO, Robert William Primary Care Provide r Unavailable Desiree Patrick MD Unavailable Farrah Nicole APRN,DIRECTORY CLERK Unavailable Bry Echevarria MD Unavailable [phone] Jamal CARLISLE DO, Robert William Unavailable Unav Stephani Diaz MD Primary Care Provider Shruti Vergara RN Unavailable Unavailable Bianka Loera CNP Primary Care Provider Desiree Patrick MD Primary Care P rovider Encounter Details Date Type Department Care Team (Late st Contact Info) Description 10/17/[address] [facility] Family Medicine [address] [place] [address] Social History Tobacco Use Types Packs/Day Years [...] do you have serious difficulty hearing? Yes-slightly [place] 10/17/2016 Are you blind or do you [...] as of this encounter Nursing Notes * [facility], GENERICPROVIDER - 10/17/2016 12:00 AM CDT Rohan presented to Urgent Care with complaint of feeling like his heart is racing, he can feel it pounding and a tighness in his chest occurs when this happens. He was seen at [facility] 10 days ago for an [...] be evaluatedin the Emergency Room at [facility]. Patient and his elected to go by private car with patients driving. Electronically signed by:Tammy Coronado RN Oct 17 2016 2:09PM IMPREGNATOR AND DRIER HELPER AMENDMENTS: 1. Patient declines shortness of breath, radiating neck pain, shoulderblade pain or sternal pain. Electronically signed by:Tammy Coronado RN Oct 17 2016 2:14PM IMPREGNATOR AND DRIER HELPER documented in this encounter Plan of Treatment Not on file documented as of this encounter Visit Diagnoses Not on filedocumented in this encounter Care Teams Sheeter Helper Relationship Specialty Start Date End Date Casey Berry II, DO PCP - General 11/22/06 08/17/19 Stephani Aleman MD PCP - General Family Medicine 08/18/19 09/16/20 Bianka Loera CNP [address] [place] [address] PCP - General Nurse Practitioner Family 09/17/2001/10 Desiree Patrick MD [address] [place] [facility] [place] [address] PCP - General Electrophysiology 02/23/22 03/09/22 Desiree Patrick MD [address] [place] [facility] [place] [address] 08/09/17 Farrah Nicole APRN,DIRECTORY CLERK [address] [place] [place] [address] 08/09/17 Bry Echevarria MD [address] [place] [phone] 08/09/17 Casey Berry II, DO 08/09/17 Shruti Vergara, RN RN Registered Nurse 08/27/20 documented as of this encounter Additional Source Comments PLEASE NOTE: Replies to this message will not be received.[facility] and [facility]
--- OUTSIDE RECORDS SUMMARY | 2024-02-16 12:50 | XMS_ITS | Encounter Summary ---
Author Organization [employer] Address [address] [place] [address] Care Team Providers Care Gaming Department Head Name Role Phone Jamal CARLISLE DO, Robert William Primary Care Provide r Unavailable Desiree Patrick MD Unavailable Farrah Nicole APRN,SENIOR CARE SPECIALIST Unavailable Bry Echevarria MD Unavailable Jamal CARLISLE DO, Robert William Unavailable Unav Stephani Diaz MD Primary Care Provider Shruti Vergara RN Unavailable Unavailable Bianka Loera CNP Primary Care Provider Desiree Patrick MD Primary Care P rovider Encounter Details Date Type Department Care Team (Late st Contact Info) Description 09/10/2014 Historical Conversion [facility] Family Medicine [address] [place] [address] Casey Berry II, DO Social History Tobacco Use Types Packs/Day Years Used Date Smoking Tobacco: Never Assessed Sex and Gender Information Value Date Recorded Sex Assigned at Not on file Gender Identity Not on file Sexual Orientation Not on file documented as of this encounter Last Filed Vital Signs Vital Sign Reading Time Taken Comments Blood Pressure 130/80 09/10/2014 12:00 AM DIRECTOR SCRIPT Pulse - - Temperature - - Respiratory Rate - - Oxygen Saturation - - Inhaled Oxygen Concentration - - Weight 93.9 kg (207 lb 0.2 oz) 09/10/2014 12:00 AM DIRECTOR SCRIPT Height - - Body Mass Index 27.31 08/22/2014 12:00 AM DIRECTOR SCRIPT documented in this encounter Plan of Treatment Not on file documented as of this encounter Visit Diagnoses Not on filedocumented in this encounter Care Teams Gaming Department Head Relationship Specialty Start Date End Date Casey Berry II, DO PCP - General 11/22/06 08/17/19 Stephani Aleman MD PCP - General Family Medicine 08/18/19 09/16/20 Bianka Loera CNP [address] [place] [address] [address] [place] [phone] PCP - General Nurse Practitioner Family 09/17/2001/10 Desiree Patrick MD [address] [place] [address] PCP - General Electrophysiology 02/23/22 03/09/22 Desiree Patrick MD [address] [place] [address] 08/09/17 Farrah Nicole APRN,SENIOR CARE SPECIALIST [address] [place] [address] 08/09/17 Bry Echevarria MD [address] [place] [address] [place] [phone] 08/09/17 Casey Berry II, DO 08/09/17 Shruti Vergara RN RN Registered Nurse 08/27/20 documented as of this encounter Additional Source Comments PLEASE NOTE: Replies to this message will not be received.[facility]
--- OUTSIDE RECORDS SUMMARY | 2024-02-16 12:50 | XMS_ITS | Encounter Summary ---
Author Organization [employer] Address [address] [place] [address] Care Team Providers Care Heel Compressor Name Role Phone Jamal CARLISLE DO, Robert William Primary Care Provide r Unavailable Desiree Patrick MD Unavailable Farrah Nicole APRN,SENIOR CHEMICAL ENGINEER Unavailable Bry Echevarria MD Unavailable Jamal CARLISLE DO, Robert William Unavailable Unav Stephani Diaz MD Primary Care Provider Shruti Vergara RN Unavailable Unavailable Bianka Loera CNP Primary Care Provider [phone] Desiree Patrick MD Primary Care P rovider Encounter Details Date Type Department Care Team (Late st Contact Info) Description 11/07/2015 Historical Conversion [facility] Family Medicine [address] [place] [address] Moon Maloney MD Social History Tobacco Use [...] Body Mass Index 26.65 08/28/2015 12:00 AM THREAD TOOL GRINDER SET UP OPERATOR documented in this encounter Progress Notes * Moon Maloney MD - 11/06/2016 12:00 AM CDT UROLOGY [facility] CRISTIAN BLEDSOE : 1945 HX: [id number] DOS: 11/06/2016 SUBJECTIVE: Cristian and his are here to discuss the results of the recent prostate biopsy. We ended up taking Anurag off his Coumadin and doing a prostate biopsy because of a positive TELETYPE OPERATOR-3 test and an elevated PSA, so he [...] ARPIT. The right mid showed prostate adenocarcinoma, Aldie 3+4 involving 20% two of two cores were positive. At the right apex, a Aldie 3+4 or 7, involving 5% one of [...] prostatectomy. Moon Maloney M.D./la-1 cc: Jose Winslow M.D./[facility] cc: Casey Berry II, D.O./[facility] Electronically signed by:Moon Maloney M.D. Nov 09 2016 1:49PM THREAD TOOL GRINDER SET UP OPERATOR * Moon Maloney MD - 10/23/2016 12:00 AM CDT UROLOGY [facility]RISTIAN BLEDSOE : 1945 HX: [id number] DOS: 10/23/2016 SUBJECTIVE: Cristian is here for a prostate biopsy. I saw Cristian in August. PSA has started to go up.He had a little bit of an elevated PSA and elevated PSA velocity. We did a TELETYPE OPERATOR-3 test. It did just come back positive. [...] negative. IMPRESSION: 1. Elevated PSA and positive TELETYPE OPERATOR-3 test. PLAN: I told Anurag to take [...] Moon Maloney M.D./la-17 cc: Casey Berry II, D.OWilliam/[facility] Electronically signed by:Moon Maloney M.D. Oct 26 2016 12:13PM THREAD TOOL GRINDER SET UP OPERATOR * Moon Maloney MD - 08/27/2016 12:00 AM CST UROLOGY [facility] BLEDSOE : 1945 HX: [id number] DOS: 08/27/2016 SUBJECTIVE: Cristian comes to see [...] because we are going to do a TELETYPE OPERATOR-3 test. LABORATORY DATA: AUA symptom score is 1. He has absolutely no trouble urinating. PSA is 5.4. IMPRESSION: 1. Elevated PSA velocity. PLAN: We are going to go ahead and get a TELETYPE OPERATOR-3 test because his velocity is really if [...] going to go ahead and get a TELETYPE OPERATOR-3 test today. Obviously if that is positive, [...] course risks of bleeding. However, if the TELETYPE OPERATOR-3 is negative, then I would just see him in six months for a PSA. Total time spent with the patient was 25 minutes with greater than 50% in counseling. Moon Maloney M.D./la-21 cc: Casey Berry II, D.OWilliam/[facility] Electronically signed by:Moon Maloney M.D. Sep 18 2016 1:34PM THREAD TOOL GRINDER SET UP OPERATOR * Moon Maloney MD - 02/11/2016 12:00 AM CDT UROLOGY [facility] BLED[facility]E : 1945 HX: [id number] DOS: 02/11/2016 SUBJECTIVE: Cristian comes to see [...] Moon Maloney M.D./la-2 cc: Casey Berry, II, D.O./[facility] Electronically signed by:Moon Maloney M.D. Feb 24 2016 9:43AM THREAD TOOL GRINDER SET UP OPERATOR * Moon Maloney MD - 11/07/2015 12:00 AM CDT UROLOGY [facility] BLEDSO[facility] : 1945 HX: [id number] DOS: 11/07/2015 REFERRING PROVIDER: Dr. Berry. HISTORY [...] He is a former smoker, retired from [employer], he is . FAMILY HISTORY: Negative for [...] Moon Maloney M.D./la-29 cc: Casey Berry II, D.O./[facility] Electronically signed by:Moon Maloney M.D. Nov 25 2015 10:34AM THREAD TOOL GRINDER SET UP OPERATOR documented in this encounter Plan of Treatment Not on file documented as of this encounter Visit Diagnoses Not on filedocumented in this encounter Care Teams Heel Compressor Relationship Specialty Start Date End Date Casey Berry II, DO PCP - General 11/22/06 08/17/19 Stephani Aleman MD PCP - General Family Medicine 08/18/19 09/16/20 Bianka Loera CNP [address] [facility] 2 [place] [address] PCP - General Nurse Practitioner Family 09/17/2001/10 [place] [address] [place] [address] PCP - General Electrophysiology 02/23/22 03/09/22 Desiree Patrick MD [address] [place] [address] 08/09/17 Farrah Nicole APRN,SENIOR CHEMICAL ENGINEER [address] [place] [address] 08/09/17 Bry Echevarria MD [address] [place] [address] [facility] [place] [address] 08/09/17 Casey Berry II, DO 08/09/17 Shruti Vergara RN RN Registered Nurse 08/27/20 documented as of this encounter Additional Source Comments PLEASE NOTE: Replies to this message will not be received.[facility] and [facility]
--- OUTSIDE RECORDS SUMMARY | 2024-02-16 12:50 | XMS_ITS | Encounter Summary ---
Author Organization [employer] Address [address] [place] [address] Care Team Providers Care Neurodiagnostic Technologist Name Role Phone Jamal CARLISLE DO, Robert William Primary Care Provide r Unavailable Desiree Patrick MD Unavailable Farrah Nicole APRN,INFORMATICS SCIENTIST Unavailable Bry Echevarria MD Unavailable [phone] Jamal CARLISLE DO, Robert William Unavailable Unav Stephani Diaz MD Primary Care Provider Shruti Vergara RN Unavailable Unavailable Bianka Loera CNP Primary Care Provider Desiree Patrick MD Primary Care P rovider Encounter Details Date Type Department Care Team (Late st Contact Info) Description 10/08/[address] [facility] Family Medicine [address] [place] [phone] Social History Tobacco Use Types Packs/Day Years [...] as of this encounter Nursing Notes * [facility], GENERICPROVIDER - 10/08/2016 12:00 AM CDT Patient calls triage with complaints of elevated heart rate in the 140's since Wednesday morning. He states that he has taken his prescribed Beta-Blockers multiple times and they have not been helping with the elevated heart rate as they should be. Patient denies any shortness of breath, dizziness, lig htheadedness, chest pain or confusion. Patient instructed by account underwriter to go to the Emergency Room at [facility] to be evaluated. Patient verbalized understanding of instructions. STACY MCCAULEY Electronically signed by:Tammy Coronado RN Oct 08 2016 8:22AM TV PRODUCTION ASSISTANT documented in this encounter Plan of Treatment Not on file documented as of this encounter Visit Diagnoses Not on filedocumented in this encounter Care Teams Neurodiagnostic Technologist Relationship Specialty Start Date End Date Casey Berry II, DO PCP - General 11/22/06 08/17/19 Stephani Aleman MD PCP - General Family Medicine 08/18/19 09/16/20 Bianka Loera CNP [address] [facility] 2 [place] [address] PCP - General Nurse Practitioner Family 09/17/2001/10 Desiree Patrick MD [address] [place] [place] [address] PCP - General Electrophysiology 02/23/22 03/09/22 Desiree Patrick MD [address] [facility] [place] [address] 08/09/17 Farrah Nicloe, GLASS BULB MACHINE ADJUSTER,INFORMATICS SCIENTIST [address] [facility] [place] [place] [address] 08/09/17 Bry Echevarria MD [address] [place] [place] [address] 08/09/17 Casey Berry II, DO 08/09/17 Shruti Vergara RN RN Registered Nurse 08/27/20 documented as of this encounter Additional Source Comments PLEASE NOTE: Replies to this message will not be received.[facility] and [facility]
--- OUTSIDE RECORDS SUMMARY | 2024-02-16 12:50 | XMS_ITS | Encounter Summary ---
Author Organization [facility] Address [address] [place] [address] Care Team Providers Care Ritual Circumciser Name Role Phone Jamal CARLISLE DO, Robert William Primary Care Provide r Unavailable Desiree Patrick MD Unavailable Farrah Nicole APRN,MANAGER OF DEVELOPMENT Unavailable Bry Echevarria MD Unavailable Jamal CARLISLE DO, Robert William Unavailable Unav Stephani Diaz MD Primary Care Provider Shruti Vergara RN Unavailable Unavailable Bianka Loera CNP Primary Care Provider Desiree Patrick MD Primary Care P rovider Encounter Details Date Type Department Care Team (Late st Contact Info) Description 02/11/2016 Historical Conversion [facility] Family Medicine [address] [place] [address] Moon Maloney MD Social History Tobacco Use [...] on filedocumented in this encounter Care Teams Ritual Circumciser Relationship Specialty Start Date End Date Casey Berry II, DO PCP - General 11/22/06 08/17/19 Stephani Aleman MD PCP - General Family Medicine 08/18/19 09/16/20 Bianka Loera CNP [address] [place] [phone] PCP - General Nurse Practitioner Family 09/17/2001/10 [place] [address] [place] [address] PCP - General Electrophysiology 02/23/22 03/09/22 Desiree Patrick MD [address] [place] [place] [address] 08/09/17 Farrah Nicole APRN,[facility] [address] [place] [address] 08/09/17 Bry Echevarria MD [facility] [place] [address] 08/09/17 Casey Berry II, DO 08/09/17 Shruti Vergara RN RN Registered Nurse 08/27/20 documented as of this encounter Additional Source Comments PLEASE NOTE: Replies to this message will not be received.[facility] and [facility]
--- OUTSIDE RECORDS SUMMARY | 2024-02-16 12:50 | XMS_ITS | Encounter Summary ---
Author Organization [facility] Only [facility] Address [address] [place] [address] Care Team Providers Care General Internal Medicine Doctor Name Role Phone Jamal CARLISLE DO, Robert William Primary Care Provide r Unavailable Desiree Patrick MD Unavailable Farrah Nicole APRN,ALEX Unavailable Bry Echevarria MD Unavailable Jamal CARLISLE DO, Robert William Unavailable Unav ailable Stephani Aleman MD Primary Care Provider [phone] Shruti Vergara RN Unavailable Unavailable Bianka Loera CNP Primary Care Provider Desiree Patrick MD Primary Care P rovider Encounter Details Date Type Department Care Team (Late st Contact Info) Description 12/01/2006 HIM Jewellery Designer Generic Jewellery Designer [address] [place] [address] Social History Tobacco Use Types [...] filedocumented in this encounter Care Teams General Internal Medicine Doctor Relationship Specialty Start Date End Date Casey Berry II, DO PCP - General 11/22/06 08/17/19 Stephani Aleman MD PCP - General Family Medicine 08/18/19 09/16/20 Bianka Loera CNP [address] [place] [address] PCP - General Nurse Practitioner Family 09/17/2001/10 Desiree Patrick MD [address] [facility] [address] PCP - General Electrophysiology 02/23/22 03/09/22 Desiree Patrick MD [address] [place] [address] 08/09/17 Farrah Nicole APRN,CNC MACHINIST [address] [place] [address] 08/09/17 Bry Echevarria MD [address] [place] [phone] 08/09/17 Casey Berry II, DO 08/09/17 Shruti Vergara, RN RN Registered Nurse 08/27/20 documented as of this encounter Additional Source Comments PLEASE NOTE: Replies to this message will not be received.[facility] and [facility]
--- OUTSIDE RECORDS SUMMARY | 2024-02-16 12:50 | XMS_ITS | Encounter Summary ---
Author Organization [facility] Address [address] [place] [address] Care Team Providers Care Senior Front End Engineer Name Role Phone Jamal CARLISLE DO, Robert William Primary Care Provide r Unavailable Desiree Patrick MD Unavailable Farrah Nicole APRN,FUR CUTTING MACHINE OPERATOR Unavailable Bry Echevarria MD Unavailable [phone] Jamal CARLISLE DO, Robert William Unavailable Unav Stephani Diaz MD Primary Care Provider [phone] Shruti Vergara RN Unavailable Unavailable Bianka Loera CNP Primary Care Provider Desiree Patrick MD Primary Care P rovider Encounter Details Date Type Department Care Team (Late st Contact Info) Description 11/19/2015 HIM Senior Front End Engineer [facility] [place] [address] [place] [address] Dionisio Meneses MD [address] [place] [address] Social History Tobacco Use Types [...] ADULT WITH OR WITHOUT CONTRAST PERFORMED BY: [place], [place] SITE: [place], [place] INTERPRETED BY: [facility] [place], [place] TRANSTHORACIC ECHOCARDIOGRAM REPORT REFERRING DIAGNOSIS: Atrial [...] comparison. Note: This study was performed by [employer] for [employer]. Only the interpretation wasperformed at the [facility]. Electronically signed Dionisio Meneses MD, [facility] Newspaper Reporter , 04:04 P A vd/Doc#: [id number] cc: Adult Normal Value Adult Patient Values [...] kg Blood pressure: 126/75 Previous study: -- Precast Molder: Lisa documented in this encounter Plan of [...] - 11/19/2015 12:00 AM CDT PERFORMED BY: [place], [place] SITE: [place], [place] INTERPRETED BY: [facility] [place], [place] TRANSTHORACIC ECHOCARDIOGRAM REPORT REFERRING DIAGNOSIS: Atrial [...] comparison. Note: This study was performed by [facility].Only the interpretation was performed at the [facility]. Electronically signed Dionisio Meneses MD, [facility] Newspaper Reporter , 04:04 P A vd/Doc#: [id number] cc: Adult Normal Value Adult Patient Values [...] kg Blood pressure: 126/75 Previous study: -- Precast Molder: Lisa Dionisio Meneses MD CAR [employer]TRAS[employer] documented in this encounter Visit Diagnoses Not on filedocumented in this encounter Care Teams Senior Front End Engineer Relationship Specialty Start Date End Date Casey Berry II, DO PCP - General 11/22/06 08/17/19 Stephani Aleman MD PCP - General Family Medicine 08/18/19 09/16/20 Bianka Loera EQUIPMENT SUPERINTENDENT [address] [place] [address] [address] [place] [phone] PCP - General Nurse Practitioner Family 09/17/20 712/31 Desiree Patrick MD [address] [place] [address] PCP - General Electrophysiology 02/23/22 03/09/22 Desiree Patrick MD [address] [place] [address] 08/09/17 Farrah Nicole APRN,FUR CUTTING MACHINE OPERATOR [address] [place] [phone] 08/09/17 Bry Echevarria MD [address] [place] [phone] 08/09/17 Casey Berry II, DO 08/09/17 Shruti Vergara RN RN Registered Nurse 08/27/20 documented as of this encounter Additional Source Comments PLEASE NOTE: Replies to this message will not be received.[facility]
--- OUTSIDE RECORDS SUMMARY | 2024-02-16 12:50 | XMS_ITS | Encounter Summary ---
Author Organization [facility] Address [address] [place] [address] Care Team Providers Care Shift Supervisor Rn Name Role Phone Jamal CARLISLE DO, Robert William Primary Care Provide r Unavailable Desiree Patrick MD Unavailable Farrah Nicole APRN,MEDICAL STENOGRAPHER Unavailable Bry Echevarria MD Unavailable [phone] Jamal CARLISLE DO, Robert William Unavailable Unav Stephani Diaz MD Primary Care Provider Shruti Vergara RN Unavailable Unavailable Bianka Loera CNP Primary Care Provider Desiree Patrick MD Primary Care P rovider Encounter Details Date Type Department Care Team (Late st Contact Info) Description 08/22/2014 Historical Conversion [facility] Family Medicine [address] [place] [address] Casey Berry II, DO Social History Tobacco [...] AND PHYSICAL CRISTIAN BLEDSOE : 1945 HX: [id number] DOS: 08/22/2014 CHIEF COMPLAINT: Routine physical. HISTORY [...] alcohol. 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 ALLERGIES: PENICILLIN AND SULFA. HEALTH CARE MAINTENANCE: [...] by:Casey Berry D.O. Sep 06 2014 7:40AM SALES SUPPORT ASSOCIATE documented in this encounter Plan of Treatment Not on file documented as of this encounter Visit Diagnoses Not on filedocumented in this encounter Care Teams Shift Supervisor Rn Relationship Specialty Start Date End Date Casey Berry II, DO PCP - General 11/22/06 08/17/19 Stephani Aleman MD PCP - General Family Medicine 08/18/19 09/16/20 Bianka Loera CNP [address] [facility] [address] [place] [address] PCP - General Nurse Practitioner Family 09/17/2001/10 Desiree Patrick MD [address] [place] [place] [address] PCP - General Electrophysiology 02/23/22 03/09/22 Desiree Patrick MD [address] [place] [place] [address] 08/09/17 Farrah Nicole, NATURAL RESOURCES INSTRUCTOR,MEDICAL STENOGRAPHER [address] [place] [place] [place] [address] 08/09/17 Bry Echevarria MD [facility] [place] [place] [address] 08/09/17 Casey Berry II, DO 08/09/17 Shruti Vergara RN RN Registered Nurse 08/27/20 documented as of this encounter Additional Source Comments PLEASE NOTE: Replies to this message will not be received.[facility]
--- OUTSIDE RECORDS SUMMARY | 2024-02-16 12:50 | XMS_ITS | Encounter Summary ---
Author Organization [employer] Address [address] [place] [address] Care Team Providers Care Continuous Pillowcase Cutter Name Role Phone Jamal CARLISLE DO, Robert William Primary Care Provide r Unavailable Desiree Patrick MD Unavailable Farrah Nicole APRN,SKIVING MACHINE OPERATOR Unavailable Bry Echevarria MD Unavailable Jamal CARLISLE DO, Robert William Unavailable Unav Stephani Diaz MD Primary Care Provider Shruti Vergara RN Unavailable Unavailable Bianka Loera CNP Primary Care Provider Desiree Patrick MD Primary Care P rovider Encounter Details Date Type Department Care Team (Late st Contact Info) Description 09/02/2016 Historical Conversion [facility] Family Medicine [address] [place] [address] Casey El II, DO Social History Tobacco [...] Comments Blood Pressure 151/81 09/02/2016 12:00 AM PREPAROLE COUNSELING AIDE Pulse - - Temperature - - Respiratory Rate - - Oxygen Saturation - - Inhaled Oxygen Concentration - - Weight 93.5 kg (206 lb 2.1 oz) 09/02/2016 12:00 AM PREPAROLE COUNSELING AIDE Height 185.1 cm (6' 0.87) 09/02/2016 12:00 AM Saúl WARE Body Mass Index 27.29 09/02/2016 12:00 AM PREPAROLE COUNSELING AIDE documented in this encounter Functional Status Functional [...] as needed; Therapy: 10Sep2014 to Requested for: 54Hsk1670 Recorded 7. Metoprolol Tartrate 50 MG Oral Tablet; TAKE 1 TABLET TWICE DAILY; Therapy: (Recorded:21Oct2016) to Recorded 8. Tylenol Extra Strength 500 MG Oral Tablet; Therapy: (Recorded:18Nov2015) to Recorded 9. Warfarin Sodium 5 MG Oral Tablet; Take as directed by [facility]; Therapy: 65Hst4151 to (Evaluate:40Uuf2057) Requested for: 46Avq6641; Last Rx:45Yoy8312 Ordered Allergies 1. Penicillins 2. Sulfa Drugs [...] Casey El DO; Apr 16 2017 8:13AM PREPAROLE COUNSELING AIDE * Casey El II, DO - 11/30/2016 [...] healthy by no longer smoking.; Status:Complete; Done: 95Nir6841 Counseling Total time of encounter was 20 [...] first. At this point in time, the Oil Burner Journeyman has not stated that he a risk [...] as needed; Therapy: 10Sep2014 to Requested for: 75Yng2740 Recorded 4. Metoprolol Tartrate 50 MG Oral Tablet; TAKE 1 TABLET TWICE DAILY; Therapy: (Recorded:21Oct2016) to Recorded 5. Tylenol Extra Strength 500 MG Oral Tablet; Therapy: (Recorded:18Nov2015) to Recorded 6. Warfarin Sodium 5 MG Oral Tablet; Take as directed by [facility]; Therapy: 98Zjs0290 to (Evaluate:12Nov2017) Requested for: 17Nov2016 Recorded Allergies 1. Penicillins 2. Sulfa Drugs Vitals Recorded: 30Nov2016 10:12AM Systolic 121 Diastolic 83 Heart Rate 106 Respiration 20 Temperature 98 F Weight 94.2 kg BMI Calculated 27.49 BSA Calculated 2.18 O2 Saturation 97 Physical Exam Deferred. Signatures Casey El II, D.OWilliam/pj-30 Electronically signed by : Casey El DO; Dec 09 2016 1:14PM PREPAROLE COUNSELING AIDE * Casey El II, DO - 10/26/2016 12:00 AM CDT Assessment 1. Former smoker: 0 - 10 pack years (V15.82) (Z87.891) Atrial fibrillation/flutter. Plan Awaiting Holter monitor to see what is going to be done next with the Oil Burner Journeyman and most likely,Electrophysiology. We finally did get the results from the Holter which showed flutter and they will send him to see the County Or City Auditor. Reason For Visit patient in for hospital [...] Extra Strength 500 MG Oral Tablet; Therapy: (Recorded:81Odb8027) to Recorded 6. Warfarin Sodium 5 MG Oral Tablet; Take as directed by [facility]; Therapy: 02Qnu4431 to (Evaluate:70Bjy5491) Requested for: 14Jul2016 Recorded Allergies 1. Penicillins 2. Sulfa Drugs Vitals Recorded: 72Gma0988 10:40AM Systolic 117, RUE, Sitting Diastolic 73, [...] Casey El DO; Nov 06 2016 8:45AM PREPAROLE COUNSELING AIDE documented in this encounter H&P Notes * [...] Panel; Status:Hold For - Manual Activation; Requested for:57Tjf4104; Hemoglobin A1C; Status:Hold For - Manual Activation; Requested for:05Bor9395; SocHx: Former smoker: 0 - 10 pack years Former Smoker: Since tobacco use can have significant health risks, you are helping yourself and others stay healthy by no longer smoking.; Status:Complete; Done: 05Chi8407 Reason For Visit H & P History [...] alcohol. 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 Colonoscopy in 2009. Pneumovax 2009. Prevnar 2015. Current Meds 1. Lisinopril 10 MG Oral Tablet; TAKE 1 TABLET BY MOUTH ONCE DAILY; Therapy: 00Zpr5108 to (Evaluate:69Tkq3564) Requested for: 13Jul2016; Last Rx:13Jul2016 Ordered 2. Metoclopramide HCl - 5 MG Oral Tablet; TAKE 1 TABLET as needed; Therapy: 10Sep2014 to Requested for: 02Sep2016 Recorded 3. Metoprolol Tartrate 25 MG Oral Tablet; 1 prn a fib; Therapy: (Recorded:02Sep2016) to Requested for: 02Sep2016 Recorded 4. Tylenol Extra Strength 500 MG Oral Tablet; Therapy: (Recorded:87Jsp5760) to Recorded 5. Warfarin Sodium 5 MG Oral Tablet; Take as directed by [facility]; Therapy: 28Jan2016 to (Evaluate:81Gcj8936) Requested for: 14Jul2016 Recorded Allergies 1. Penicillins [...] rash. /RECTAL: Done by urology. Results/Data PHQ-9 10Tfn5323 12:00AM Casey El Test Name Result Flag Reference PHQ-9 0 Alcohol & Drug Questionnaire for Adults 59Moj4579 12:00AM Casey El Test Name Result Flag Reference Alcohol & Drug Questionnaire for Adults 3 Nurse Note Pt given heel cups by dr el. #[id number] qty 2. [facility] medical imaging director Recorded as Task Date: 09/14/2016 01:01 PM, [...] if you have any questions! Cherelle [facility][id number] Kelly Walls - 15 Sep 2016 7:16 AM TASK REASSIGNED: Previously Assigned To Kelly Walls Michelle - 15 Sep 2016 9:00 AM TASK REASSIGNED: Previously Assigned To Casey El per dr el- dx plantar fasciitis M72.2 thanks. [place] medical imaging director Signatures Casey El II D.Veena/la-3 Electronically signed by : Casey El DO; Sep 11 2016 1:25PM PREPAROLE COUNSELING AIDE Electronically signed by : Casey El DO; Sep 16 2016 12:34PM PREPAROLE COUNSELING AIDE documented in this encounter Plan of Treatment Not on file documented as of this encounter Visit Diagnoses Not on filedocumented in this encounter Care Teams Continuous Pillowcase Cutter Relationship Specialty Start Date End Date Casey El II, DO PCP - General 11/22/06 08/17/19 Stephani Aleman MD PCP - General Family Medicine 08/18/19 09/16/20 Bianka Loera RETAIL SALES PROFESSIONAL [address] [facility] 2 [place] [address] PCP - General Nurse Practitioner Family 09/17/20 7/2 12/31 Desiree Patrick MD [address] [place] [address] PCP - General Electrophysiology 02/23/22 03/09/22 Desiree Patrick MD [address] [place] [address] 08/09/17 Farrah Nicole APRN,SKIVING MACHINE OPERATOR [address] [place] [address] 08/09/17 Bry Echevarria MD [address] [place] [address] [place] [address] 08/09/17 Casey El II, DO 08/09/17 Shruti Vergara, RN RN Registered Nurse 08/27/20 documented as of this encounter Additional Source Comments PLEASE NOTE: Replies to this message will not be received.[facility]
--- OUTSIDE RECORDS SUMMARY | 2024-02-16 12:50 | XMS_ITS | Encounter Summary ---
Author Organization [employer] Address [address] [place] [address] Care Team Providers Care Care Attendant Name Role Phone Jamal CARLISLE DO, Robert William Primary Care Provide r Unavailable Desiree Patrick MD Unavailable Farrah Nicole APRN,RELEASE MANAGER Unavailable Bry Echevarria MD Unavailable [phone] Jamal CARLISLE DO, Robert William Unavailable Unav Stephani Diaz MD Primary Care Provider Shruti Vergara RN Unavailable Unavailable Bianka Loera CNP Primary Care Provider [phone] Desiree Patrick MD Primary Care P rovider Encounter Details Date Type Department Care Team (Late st Contact Info) Description 06/24/2016 Historical Conversion [facility] Family Medicine [address] [place] [address] Casey Berry II, DO Social History Tobacco [...] Comments Blood Pressure 115/76 06/24/2016 12:00 AM DIVING SUPERVISOR Pulse - - Temperature - - Respiratory Rate - - Oxygen Saturation - - Inhaled Oxygen Concentration - - Weight 91.5 kg (201 lb 11.5 oz) 016 12:00 AM DIVING SUPERVISOR Height - - Body Mass Index [...] filedocumented in this encounter Care Teams Care Attendant Relationship Specialty Start Date End Date Casey Berry II, DO PCP - General 11/22/06 08/17/19 Stephani Aleman MD PCP - General Family Medicine 08/18/19 09/16/20 Bianka Loera CNP [address] [place] [phone] PCP - General Nurse Practitioner Family 09/17/2001/10 Desiree Patrick MD [address] [place] [address] PCP - General Electrophysiology 02/23/22 03/09/22 Desiree Patrick MD [address] [facility] [place] [address] 08/09/17 Farrah Nicole APRN,RELEASE MANAGER [address] [place] [address] 08/09/17 Bry Echevarria MD [address] [place] [address] [place] [address] 08/09/17 Casey Berry II, DO 08/09/17 Shruti Vergara RN RN Registered Nurse 08/27/20 documented as of this encounter Additional Source Comments PLEASE NOTE: Replies to this message will not be received.[facility]
--- OUTSIDE RECORDS SUMMARY | 2024-02-16 12:50 | XMS_ITS | Encounter Summary ---
Author Organization [facility] Address [address] [place] [address] Care Team Providers Care Management Internship Name Role Phone Jamal CARLISLE DO, Robert William Primary Care Provide r Unavailable Desiree Patrcik MD Unavailable Farrah Nicole APRN,CONSTRUCTION CONTROLLER Unavailable Bry Echevarria MD Unavailable [phone] Jamal CARLISLE DO, Robert William Unavailable Unav Stephani Diaz MD Primary Care Provider Shruti Vergara RN Unavailable Unavailable Bianka Loera CNP Primary Care Provider Desiree Patrick MD Primary Care P rovider Encounter Details Date Type Department Care Team (Late st Contact Info) Description 01/28/2016 Historical Conversion [facility] Family Medicine [address] [place] [address] Social History Tobacco Use Types Packs/Day Years [...] as of this encounter Procedure Notes * [facility], GENERICPROVIDER - 01/28/2016 12:00 AM CDTAssociated [...] daily, Reglan 5 mg TID PRN, and [id number] mg BID for pain in right knee. [...] by:Razia Duarte RN Jan 28 2016 12:46PM CUSTOMS GUARD documented in this encounter Plan of Treatment Not on file documented as of this encounter Procedures Procedure Name Priority Date/Time Associated Diagnosis Comments ANTICOAGULATION 01/28/2016 documented in this encounter Results * ANTICOAGULATION (01/28/2016) Narrative Procedure Note [facility], GENERICPROVIDER - 01/28/2016 12:00 AM CDT Name: CRISTIAN WILKINSN: [id number] : 1945 DOS: 01/28/2016 Cristian ia a [...] and approximately 200 lbs. Patient [facility] bleeding or stroke. He [...] summer as he is apart of a [employer]. Drinks green tea onoccasion; encouraged to avoid [...] by:Razia Duarte RN Jan 28 2016 12:46PM CUSTOMS GUARD Genericprovider [facility] OTHER documented in this encounter Visit Diagnoses Not on filedocumented in this encounter Care Teams Management Internship Relationship Specialty Start Date End Date Casey Berry II, DO PCP - General 11/22/06 08/17/19 Stephani Aleman MD PCP - General Family Medicine 08/18/19 09/16/20 Bianka Loera SERVICE AIDE [address] [place] [phone] PCP - General Nurse Practitioner Family 09/17/2001/10 Desiree Patrick MD [address] [place] [address] PCP - General Electrophysiology 02/23/22 03/09/22 Desiree Patrick MD [address] [place] [address] 08/09/17 Farrah Nicole APRN,CONSTRUCTION CONTROLLER [address] [place] [address] 08/09/17 Bry Echevarria MD [address] [place] [address] 08/09/17 Casey Berry II, DO 08/09/17 Shruti Vergara RN RN Registered Nurse 08/27/20 documented as of this encounter Additional Source Comments PLEASE NOTE: Replies to this message will not be received.[facility] and [facility]
--- OUTSIDE RECORDS SUMMARY | 2024-02-16 12:50 | XMS_ITS | Encounter Summary ---
Author Organization [employer] Address [address] [place] [address] Care Team Providers Care End Trimmer Name Role Phone Jamal CARLISLE DO, Robert William Primary Care Provide r Unavailable Desiree Patrick MD Unavailable Farrah Nicole APRN,[employer] Unavailable Bry Echevarria MD Unavailable Jamal CARLISLE DO, Robert William Unavailable Unav Stephani Diaz MD Primary Care Provider [phone] Shruti Vergara RN Unavailable Unavailable Bianka Loera CNP Primary Care Provider Desiree Patrick MD Primary Care P rovider Encounter Details Date Type Department Care Team (Late st Contact Info) Description 01/31/2016 Historical Conversion [facility] [address] [place] [id number] Social History Tobacco Use Types Packs/Day Years [...] as of this encounter [facility]/14/2017 12:00 AM CDTAssociated Order(s): ANTICOAGULATION Antico[facility] Name: CRISTIAN BLEDSOE : 1945 [...] by:Tiffani Carrero RN Jan 14 2017 11:11AM VAT TENDER * [facility] - 12/23/2016 12:00 AM CDTAssociated Order(s): ANTICOAGULATION Antico[facility] Name: CRISTIAN BLEDSOE : 1945 [...] by:Tiffani Carrero RN Dec 23 2016 11:30AM VAT TENDER * [facility] - 12/02/2016 12:00 AM CDTAssociated Order(s): ANTICOAGULATION [facility] Name: CRISTIAN BLEDSOE : 1945 [...] by:Tiffani Carrero RN Dec 02 2016 4:10PM VAT TENDER * [facility] - 11/17/2016 12:00 AM CDTAssociated Order(s): ANTICOAGULATION [facility]tico[facility] Name: CRISTIAN BLEDSOE : 1945 [...] has an appointment next week with an publishing agent to discuss a possible ablation. Patient denies any medication changes. INR tested today is therapeutic at 2.7 with the recommended range of 2.0 to 3.0. Patient will continue Coumadin at 5 mg daily with an INR recheck in two weeks. Patient verbalizes understanding. Electronically signed by:Tiffani Carrero RN Nov 17 2016 9:36AM VAT TENDER * [facility] GENERICPROMcLarensDER - 11/10/2016 12:00 AM CDTAssociated Order(s): ANTICOAGULATION An[facility] Name: CRISTIAN BLEDSOE : 1945 [...] by:Tiffani Carrero RN Nov 10 2016 2:41PM VAT TENDER * [facility] - 10/29/2016 12:00 AM CDTAssociated Order(s): ANTICOAGULATION Anticoagulation [facility] Name: CRISTIAN BLEDSOE : 1945 DOS: 10/29/2016 [...] by:Tiffani Carrero RN Oct 29 2016 3:44PM VAT TENDER * [facility] - 10/23/2016 12:00 AM CDTAssociated Order(s): ANTICOAGULATION Antico[facility] Name: CRISTIAN BLEDSOE : 1945 DOS: 10/23/2016 This is a patient of Dr. Berry. He is taking anticoagulation for a diagnosis of atrial fibrillation.He is scheduled for a prostate biopsy today at the [facility] with Dr. Maloney. Patient had his INR checked in the [facility] lab prior to his procedure [...] by:Tiffani Carrero RN Oct 26 2016 9:49AM VAT TENDER * [facility]USTINPR[facility]UB[facility] - 10/13/2016 12:00 AM CDTAssociated Order(s): ANTICOAGULATION Anticoagulation [facility] Name: CRISTIAN BLEDSOE : 1945 [...] will have his INR checked at the [facility] prior to his biopsy which [...] by:Tiffani Carrero RN Oct 13 2016 12:13PM VAT TENDER AMENDMENTS: 1. Patient states that he was in the [facility] ER on October 08 with [...] by:Tiffani Carrero RN Oct 13 2016 12:36PM VAT TENDER * [facility] GENERICPROLUBNA - 09/15/2016 12:00 AM CSTAssociated Order(s): ANTICOAGULATION Anticoagulation [facility] Name: CRISTIAN BLEDSOE : 1945 DOS: 09/15/2016 [...] by:Tiffani Carrero RN Sep 15 2016 2:04PM VAT TENDER * [facility] - 08/18/2016 12:00 AM CSTAssociated Order(s): ANTICOAGULATION Anticoagulation [facility] Name: CRISTIAN BLEDSOE : 1945 DOS: 08/18/2016 [...] by:Tiffani Carrero RN Aug 18 2016 2:21PM VAT TENDER * [facility] GENER[facility]PROV[facility] - 07/28/2016 12:00 AM CSTAssociated Order(s): ANTICOAGULATION Anticoagulation [facility] Name: CRISTIAN BLEDSOE : 1945 DOS: 07/28/2016 [...] by:Tiffani Carrero RN Jul 28 2016 11:06AM VAT TENDER * [facility], [facility] - 07/14/2016 12:00 AM CSTAssociated Order(s): ANTICOAGULATION Anticoagulation [facility] Name: CRISTIAN BLEDSOE : 1945 DOS: 07/14/2016 [...] by:Tiffani Carrero RN Jul 14 2016 11:21AM VAT TENDER * [facility], GENERICPROV[facility]RANDO - 06/30/2016 12:00 AM CSTAssociated Order(s): ANTICOAGULATION Anticoagulation [facility] Name: CRISTIAN BLEDSOE : 1945 DOS: 06/30/2016 [...] by:Tiffani Carrero RN Jun 30 2016 9:24AM VAT TENDER * [facility] - 05/20/2016 12:00 AM CSTAssociated Order(s): ANTICOAGULATION Anticoagulation [facility] Name: CRISTIAN BLEDSOE : 1945 DOS: 05/20/2016 [...] by:Tiffani Carrero RN May 20 2016 3:59PM VAT TENDER * [facility] MICHELLEPR[facility]INAB[facility]O - 04/15/2016 12:00 AM CDTAssociated Order(s): ANTICOAGULATION Antico[facility] Name: CRISTIAN BLEDSOE : 1945 [...] by:Tiffani Carrero RN Apr 15 2016 5:55PM VAT TENDER * [facility] MICHELLEPROVIBRANDO - 03/18/2016 12:00 AM CDTAssociated Order(s): ANTICOAGULATION Antico[facility] Name: CRISTIAN BLEDSOE : 1945 [...] by:Tiffani Carrero RN Mar 18 2016 9:42AM VAT TENDER * [facility]USTINPR[facility]UB[facility] - 03/09/2016 12:00 AM [...] Tiffani Carrero RN; Mar 09 2016 9:59AM VAT TENDER * [facility] MICHELLEPROVIBRANDO - 02/27/2016 12:00 AM CDTAssociated Order(s): ANTICOAGULATION [facility] Name: CRISTIAN BLEDSOE : 1945 [...] by:Tiffani Carrero RN Feb 27 2016 12:04PM VAT TENDER * [facility] - 02/12/2016 12:00 AM CDTAssociated Order(s): ANTICOAGULATION [facility] Name: CRISTIAN BLEDSOE : 1945 [...] by:Tiffani Carrero RN Feb 12 2016 9:02AM VAT TENDER * [facility] - 02/04/2016 12:00 AM CDTAssociated Order(s): ANTICOAGULATION Anticoagulation [facility] Name: CRISTIAN BLEDSOE : 1945 DOS: 02/04/2016 [...] by:Tiffani Carrero RN Feb 04 2016 9:45AM VAT TENDER * [facility], [facility] - 01/31/2016 12:00 AM CDTAssociated [...] by:Carlene Hargrove RN Jan 31 2016 2:45PM VAT TENDER documented in this encounter Plan of [...] Results * ANTICOAGULATION (01/14/2017) Narrative Procedure Note [facility] - 01/14/2017 12:00 AM CDT Anticoagulation [facility] Name: CRISTIAN BLEDSOE : 1945 [...] by:Tiffani Carrero RN Jan 14 2017 11:11AM VAT TENDER [facility] OTHER * ANTICOAGULATION (12/23/2016) Narrative Procedure Note [facility] - 12/23/2016 12:00 AM CDT Anticoagulation [facility] Name: CRISTIAN BLEDSOE : 1945 DOS: 12/23/2016 This is a patient of Dr. Berry. He is here today for an anticoagulationassessment and INR check for a diagnosis of atrial fibrillation. Patientstates that he has been feeling well. He reports that [facility] and will begin radiation on January [...] by:Tiffani Carrero RN Dec 23 2016 11:30AM VAT TENDER [facility] OTHER * ANTICOAGULATION (12/02/2016) Narrative Procedure Note [facility] - 12/02/2016 12:00 AM CDT Anticoagulation [facility] Name: CRISTIAN BLEDSOE : 1945 DOS: 12/02/2016 [...] by:Tiffani Carrero RN Dec 02 2016 4:10PM VAT TENDER [facility] OTHER * ANTICOAGULATION (11/17/2016) Narrative Procedure Note [facility] - 11/17/2016 12:00 AM CDT Anticoagulation [facility] Name: CRISTIAN BLEDSOE : 1945 DOS: 11/17/2016 [...] by:Tiffani Carrero RN Nov 17 2016 9:36AM [facility] * [facility]TICO[facility]ULATION (11/10/2016) Narrative [facility] 11/10/2016 12:00 AM CDT Anticoagulation [facility] Name: CRISTIAN BLEDSOE : 1945 DOS: 11/10/2016 This is a patient of Dr. Berry. He is here today for an anticoagulationassessment and INR check for a diagnosis of atrial fibrillation. Patientstates that he has been feeling well. He reports that he has beendiagnosis with prostate cancer and will be meeting with Dr. Conroy at [facility] to find out information regarding radiation therapy. Patientdenies any medication changes. INR tested today is elevated at 3.6 withthe recommended range of 2.0 to 3.0. Patient will adjust Coumadin with ahold today (11/10), then take 5 mg daily with an INR recheck in one week.Patient verbalizes understanding. Electronically signed by:Tiffani Carrero RN Nov 10 2016 2:41PM VAT TENDER [facility] OTHER * ANTICOAGULATION (10/29/2016) Narrative Procedure Note [facility] - 10/29/2016 12:00 AM CDT Anticoagulation [facility] Name: CRISTIAN BLEDSOE : 1945 DOS: 10/29/2016 [...] by:Tiffani Carrero RN Oct 29 2016 3:44PM VAT TENDER [facility] OTHER * ANTICOAGULATION (10/23/2016) Narrative Procedure Note [facility] - 10/23/2016 12:00 AM CDT Anticoagulation [facility] Name: CRISTIAN BLEDSOE : 1945 DOS: 10/23/2016 This is a patient of Dr. Berry. He is taking anticoagulation for adiagnosis of atrial fibrillation. He is scheduled for a prostate biopsytoday at the [facility] with Dr. Maloney. Patient had his INR checkedin the [facility] lab prior to his procedure [...] by:Tiffani Carrero RN Oct 26 2016 9:49AM VAT TENDER [facility] OTHER * ANTICOAGULATION (10/13/2016) Narrative [facility] 10[facility]13/2016 12:00 AM CDT [facility]tico[facility] Name: CRISTIAN BLEDSOE : 1945 [...] [facility] [...] by:Tiffani Carrero RN Oct 13 2016 12:13PM VAT TENDER AMENDMENTS: 1. Patient states that he was in the [facility] ER on October 08 with [...] by:Tiffani Carrero RN Oct 13 2016 12:36PM VAT TENDER [facility] OTHER * ANTICOAGULATION (09/15/2016) Narrative Procedure Note [facility] - 09/15/2016 12:00 AM CST Anticoagulation [facility] Name: CRISTIAN BLEDSOE : 1945 [...] by:Tiffani Carrero RN Sep 15 2016 2:04PM VAT TENDER [facility] OTHER * ANTICOAGULATION (08/18/2016) Narrative Procedure Note [facility] - 08/18/2016 12:00 AM CST Anticoagulation [facility] Name: CRISTIAN BLEDSOE : 1945 DOS: 08/18/2016 [...] by:Tiffani Carrero RN Aug 18 2016 2:21PM VAT TENDER [facility] OTHER * ANTICOAGULATION (07/28/2016) Narrative Procedure Note [facility] - 07/28/2016 12:00 AM CST Anticoagulation [facility] Name: CRISTIAN LBEDSOE : 1945 DOS: 07/28/2016 This is a [...] by:Tiffani Carrero RN Jul 28 2016 11:06AM VAT TENDER [facility] OTHER * ANTICOAGULATION (07/14/2016) Narrative Procedure Note [facility] - 07/14/2016 12:00 AM CST Anticoagulation [facility] Name: CRISTIAN BLEDSOE : 1945 DOS: 07/14/2016 [...] by:Tiffani Carrero RN Jul 14 2016 11:21AM VAT TENDER [facility] OTHER * ANTICOAGULATION (06/30/2016) Narrative Procedure Note [facility] - 06/30/2016 12:00 AM CST Anticoagulation [facility] Name: CRISTIAN BLEDSOE : 1945 DOS: 06/30/2016 [...] by:Tiffani Carrero RN Jun 30 2016 9:24AM VAT TENDER [facility] OTHER * ANTICOAGULATION (05/20/2016) Narrative Procedure Note [facility] - 05/20/2016 12:00 AM CST Anticoagulation [facility] Name: CRISTIAN BLEDSOE : 1945 DOS: 05/20/2016 [...] by:Tiffani Carrero RN May 20 2016 3:59PM VAT TENDER [facility] OTHER * ANTICOAGULATION (04/15/2016) Narrative Procedure Note [facility] - 04/15/2016 12:00 AM CDT Anticoagulation [facility] Name: CRISTIAN BLEDSOE : 1945 DOS: 04/15/2016 [...] by:Tiffani Carrero RN Apr 15 2016 5:55PM VAT TENDER [facility] OTHER * ANTICOAGULATION (03/18/2016) Narrative Procedure Note [facility] - 03/18/2016 12:00 AM CDT Anticoagulation [facility] Name: CRISTIAN BLEDSOE : 1945 DOS: 03/18/2016 [...] by:Tiffani Carrero RN Mar 18 2016 9:42AM VAT TENDER [facility] OTHER * ANTICOAGULATION (03/09/2016) Narrative Procedure Note [facility] - 03/09/2016 12:00 AM CDT ACC Comments [...] Tiffani Carrero RN; Mar 09 2016 9:59AMCST [facility] OTHER * ANTICOAGULATION (02/27/2016) Narrative Procedure Note [facility] - 02/27/2016 12:00 AM CDT Anticoagulation [facility] Name: CRISTIAN BLEDSOE : 1945 DOS: 02/27/2016 [...] by:Tiffani Carrero RN Feb 27 2016 12:04PM VAT TENDER [facility] OTHER * ANTICOAGULATION (02/12/2016) Narrative Procedure Note [facility] - 02/12/2016 12:00 AM CDT Anticoagulation [facility] Name: CRISTIAN BLEDSOE : 1945 DOS: 02/12/2016 [...] by:Tiffani Carrero RN Feb 12 2016 9:02AM VAT TENDER [facility] OTHER * ANTICOAGULATION (02/04/2016) Narrative Procedure Note [facility] - 02/04/2016 12:00 AM CDT Anticoagulation [facility] Name: CRISTIAN BLEDSOE : 1945 DOS: 02/04/2016 [...] by:Tiffani Carrero RN Feb 04 2016 9:45AM VAT TENDER [facility] OTHER * ANTICOAGULATION (01/31/2016) Narrative Procedure Note [facility] - 01/31/2016 12:00 AM CDT Name: [...] by:Carlene Hargrove RN Jan 31 2016 2:45PM VAT TENDER [facility] OTHER documented in this encounter Visit Diagnoses Not on filedocumented in this encounter Care Teams End Trimmer Relationship Specialty Start Date End Date Casey Berry II, DO PCP - General 11/22/06 08/17/19 Stephani Aleman MD PCP - General Family Medicine 08/18/19 09/16/20 Bianka Loera CNP [address] [place] [phone] PCP - General Nurse Practitioner Family 09/17/20 7/2 12/31 Desiree Patrick MD [address] [place] [address] PCP - General Electrophysiology 02/23/22 03/09/22 Desiree Patrick MD [address] [place] [address] 08/09/17 Farrah Nicole APRN,[employer] [address] [place] [address] 08/09/17 Bry Echevarria MD [address] [place] [address] [place] [address] 08/09/17 Casey Berry II, DO 08/09/17 Shruti Vergara, RN RN Registered Nurse 08/27/20 documented as of this encounter Additional Source Comments PLEASE NOTE: Replies to this message will not be received.[facility]
--- OUTSIDE RECORDS SUMMARY | 2024-02-16 12:50 | XMS_ITS | Encounter Summary ---
Author Organization [facility] Address [address] [place] [address] Care Team Providers Care Audio Video Repairer Name Role Phone Jamal CARLISLE DO, Robert William Primary Care Provide r Unavailable Desiree Patrick MD Unavailable Farrah Nicole APRN,CONE EXAMINER Unavailable Bry Echevarria MD Unavailable [phone] Jamal CARLISLE DO, Robert William Unavailable Unav Stephani Diaz MD Primary Care Provider Shruti Vergara RN Unavailable Unavailable Bianka Loera CNP Primary Care Provider Desiree Patrick MD Primary Care P rovider Encounter Details Date Type Department Care Team (Late st Contact Info) Description 08/28/[address] [facility] Family Medicine [address] [place] [address] Casey Berry II, DO Social History Tobacco Use Types Packs/Day Years Used Date Smoking Tobacco: Never Assessed Sex and Gender Information Value Date Recorded Sex Assigned at Not on file Gender Identity Not on file Sexual Orientation Not on file documented as of this encounter Last Filed Vital Signs Vital Sign Reading Time Taken Comments Blood Pressure 134/90 08/28/2015 12:00 AM SPECIALTY FOOD PRODUCTS SUPERVISOR Pulse - - Temperature - - Respiratory Rate - - Oxygen Saturation - - Inhaled Oxygen Concentration - - Weight 90.2 kg (198 lb 13.7 oz) 016 12:00 AM SPECIALTY FOOD PRODUCTS SUPERVISOR Height 186 cm (6' 1.23) 08/28/2015 12: 00 AM SPECIALTY FOOD PRODUCTS SUPERVISOR Body Mass Index 26.07 08/28/2015 12:00 AM SPECIALTY FOOD PRODUCTS SUPERVISOR documented in this encounter Progress Notes * [...] healthy by no longer smoking.; Status:Complete; Done: 97Twk3994 Reason For Visit Go over CT results. [...] 1 TABLET BY MOUTH ONCE DAILY; Therapy: 51Kle7012 to (Evaluate:13Lkw3054) Requested for: 89Ffq8636; Last Rx:83Ght7980 Ordered 2. Metoclopramide HCl - 5 MG Oral Tablet; TAKE 1 TABLET BY MOUTH THREE TIMES DAILY WITH MEALS; Therapy: 10Sep2014 to (Evaluate:28Jic7713) Requested for: 45Vjy7767; Last Rx:15Gvo2282 Ordered 3. Metoprolol Tartrate 25 MG Oral Tablet; 1/2 to 1 prn a fib Requested for: 53Kof3064; Last Rx:83Dpf1150 Ordered 4. Tylenol Extra Strength 500 MG Oral Tablet; Therapy: (Recorded:69Cmq4045) to Recorded 5. Warfarin Sodium 5 MG Oral Tablet; Take as directed by ACC; Therapy: 66Ovv7127 to (Evaluate:15May2017) Requested for: 20May2016 Recorded Allergies 1. Penicillins 2. Sulfa Drugs Vitals Recorded: 31Fzy6667 10:00AM Systolic 115, RUE, Sitting Diastolic 76, RUE, Sitting Heart Rate 65 Respiration 16 Temperature 97.6 F, Forehead Weight 91.5 kg BMI Calculated 26.45 BSA Calculated 2.16 2+ Falls or 1 Fall with injury in last year? No O2 Saturation 96 Signatures Casey Berry II, D.OWilliam/pj-29 Electronically signed by : Casey Berry DO; Jul 09 2016 1:56PM SPECIALTY FOOD PRODUCTS SUPERVISOR * Casey Berry II, DO - 03/10/2016 [...] use sparingly qid; Therapy: 18Nov2015 to (Last Rx:23Pll3065) Requested for: 67Rnf3426 Ordered 2. Lisinopril 10 MG Oral Tablet; TAKE 1 TABLET BY MOUTH ONCE DAILY; Therapy: 26Ekm4562 to (Evaluate:71Vil5628) Requested for: 62Jmc3727; Last Rx:53Ack6439 Ordered 3. Metoclopramide HCl - 5 MG Oral Tablet; TAKE 1 TABLET BY MOUTH THREE TIMES DAILY WITH MEALS; Therapy: 10Sep2014 to (Evaluate:21Vho5197) Requested for: 92Vtm7035; Last Rx:27Lhu9160 Ordered 4. Tylenol Extra Strength 500 MG Oral Tablet; Therapy: (Recorded:20Ofu2776) to Recorded 5. Warfarin Sodium 5 MG Oral Tablet; Take as directed by ACC; Therapy: 89Tmu5675 to (Evaluate:31Jbw2380) Requested for: 19Feb2016; Last Rx:19Feb2016 Ordered Allergies [...] Vital Signs [Data Includes: Current Encounter] Recorded: 59Vdx0062 10:06AM Blood Pressure 124 / 71 Heart [...] Casey Berry DO; Apr 02 2016 8:50AM SPECIALTY FOOD PRODUCTS SUPERVISOR * Casey Berry II, DO - 01/28/2016 [...] use sparingly qid; Therapy: 18Nov2015 to (Last Rx:08Vov5199) Requested for: 78Hjp0461 Ordered 2. Lisinopril 10 MG Oral Tablet; TAKE 1 TABLET BY MOUTH ONCE DAILY; Therapy: 66Eqc1454 to (Evaluate:50Gbz7516) Requested for: 73Ywk2571; Last Rx:31Uuy8511 Ordered 3. Metoclopramide HCl - 5 MG Oral Tablet; TAKE 1 TABLET BY MOUTH THREE TIMES DAILY WITH MEALS; Therapy: 10Sep2014 to (Evaluate:06Coh7520) Requested for: 92Cyk1535; Last Rx:96Wgn3469 Ordered 4. Tylenol Extra Strength 500 MG Oral Tablet; Therapy: (Recorded:18Nov2015) to Recorded 5. Xarelto 15 MG Oral Tablet; TAKE 1 TABLET DAILY Requested for: 08Jan2016; Last Rx:08Jan2016 Ordered Allergies 1. Penicillins 2. Sulfa Drugs Social History 1. Former smoker: 0 - 10 pack years (V15.82) (Z87.891) Vitals Vital Signs [Data Includes: Current Encounter] Recorded: 22Wuz7500 10:31AM Blood Pressure 139 / 83 Heart [...] Casey Berry DO; Feb 11 2016 7:47AM SPECIALTY FOOD PRODUCTS SUPERVISOR * Casey Berry II, DO - 12/11/2015 12:00 AM CDT Chief Complaint/Reason for Visit f/up ct History of Present Illness This is a 70-year-old male who recently underwent a stress test. The stress test showed no major abnormality, however, it was suggested of an aneurysm. 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 Donnellson that the CT scan would be a [...] 1 TABLET BY MOUTH ONCE DAILY; Therapy: 21Mrd9452 to (Evaluate:81Sqv6850) Requested for: 04Ska7693; Last Rx:56Tjo8414 Ordered 3. Metoclopramide HCl - 5 MG Oral Tablet; TAKE 1 TABLET BY MOUTH THREE TIMES DAILY WITH MEALS; Therapy: 10Sep2014 to (Evaluate:83Xxi2159) Requested for: 03Dec2015; Last Rx:48Cvg8590 Ordered 4. Tylenol Extra Strength 500 MG [...] Casey Berry DO; Dec 30 2015 8:19AM SPECIALTY FOOD PRODUCTS SUPERVISOR * Casey Berry II, DO - 11/18/2015 12:00 AM CDT Chief Complaint/Reason for Visit ER follow up History of Present Illness This is a 69-year-old male who has a long history of paroxysmal tachycardia. He recently had an episode of paroxysmal tachycardia. He went in to the ER in [place] and found that he had a flutter [...] INHALE ONE SPRAY TWICE DAILY PRN; Therapy: 28Eqx8535 to Requested for: 03Jan2014 Recorded 2. Lisinopril 10 MG Oral Tablet; TAKE 1 TABLET BY MOUTH ONCE DAILY; Therapy: 36Gqn1631 to (Evaluate:70Rmv6760) Requested for: 84Nnb0014; Last Rx:26Swg1783 Ordered 3. Metoclopramide HCl - 5 MG Oral Tablet; TAKE 1 TABLET BY MOUTH THRE E TIMES DAILY WITH MEALS; Therapy: 10Sep2014 to (Evaluate:15Nwi6587) Requested for: 59Laf7022; Last Rx:15Ejm3027 Ordered 4. Metoprolol Tartrate 25 MG Oral [...] Casey Berry DO; Nov 26 2015 8:06AM SPECIALTY FOOD PRODUCTS SUPERVISOR documented in this encounter H&P Notes * [...] INHALE ONE SPRAY TWICE DAILY PRN; Therapy: 43Csi8754 to Requested for: 03Jan2014 Recorded 3. Lisinopril 10 MG Oral Tablet; TAKE 1 TABLET BY MOUTH ONCE DAILY; Therapy: 56Fvg8605 to (Evaluate:92Itg0971) Requested for: 21Zyn1941; Last Rx:25Idl7410 Ordered 4. Metoclopramide HCl - 5 MG Oral Tablet; TAKE 1 TABLET BY MOUTH THRE E TIMES DAILY WITH MEALS; Therapy: 10Sep2014 to (Evaluate:20Bew9010) Requested for: 45Xmc5084; Last Rx:07Vhb5813 Ordered 5. Vitamin D3 1000 UNIT Oral [...] healthy by no longer smoking.; Status:Complete; Done: 53Jlm1152 1.Prevnar shot. 2.CBC, vitamin D, PSA, comp, and lipid. 3.Did discuss with patient about his foot. Signatures Casey Berry II, D.OWilliam/jaj-08 Electronically signed by : Casey Berry DO; Sep 19 2015 8:13AM SPECIALTY FOOD PRODUCTS SUPERVISOR documented in this encounter Procedure Notes * Casey Berry II, DO - 11/26/2015 12:00 AM CDTAssociated Order(s): NUCLEAR MEDICINE NUCLEAR MEDICINE CRISTIAN BLEDSOE : 1945 HX: [id number] DOS: 11/26/2015 Lexiscan portion of Lexiscan Cardiolite. [...] by:Casey Berry DO Dec 03 2015 7:45AM SPECIALTY FOOD PRODUCTS SUPERVISOR documented in this encounter Miscellaneous Notes * [...] you have any questions. Casey Berry DO [facility] Electronically signed by:DEYANIRA FRANCOIS Sep 09 2015 11:25AM SPECIALTY FOOD PRODUCTS SUPERVISOR documented in this encounter Plan of Treatment Not on file documented as of this encounter Procedures Procedure Name Priority Date/Time Associated Diagnosis Comments NUCLEAR MEDICINE 11/26/2015 documented in this encounter Results * NUCLEAR MEDICINE (11/26/2015) Anatomical Region Laterality Modality Other Narrative Procedure Note Casey Berry II, DO - 11/26/2015 12:00 AM CDT NUCLEAR MEDICINE CRISTIAN BLEDSOE : 1945 HX: [id number] DOS: 11/26/2015 Lexiscan portion of Lexiscan Cardiolite. BASELINE EKG: Shows no abnormality of note. PROTOCOL: Patient was given Lexiscan and Cardiolite. He had no majorcomplaints. EKG CHANGES NOTED DURING TEST: EKG showed no changes. IMPRESSION: 1. Normal Lexiscan portion of Lexiscan Cardiolite. RECOMMENDATIONS: We will await radiologic portion of test. Casey Berry II, D.O./jaj-23 Electronically signed by:Casey Berry DO Dec 03 2015 7:45AM SPECIALTY FOOD PRODUCTS SUPERVISOR Casey Berry II, DO RAD NUCLEAR M EDICINE documented in this encounter Visit Diagnoses Not on filedocumented in this encounter Care Teams Audio Video Repairer Relationship Specialty Start Date End Date Casey Berry II, DO PCP - General 11/22/06 08/17/19 Stephani Aleman MD PCP - General Family Medicine 08/18/19 09/16/20 Bianka Loera SCAFFOLD BUILDER [address] [facility] [address] [place] [address] PCP - General Nurse Practitioner Family 09/17/20 712/31 Desiree Patrick MD [address] [place] [address] PCP - General Electrophysiology 02/23/22 03/09/22 [place] [address] [place] [address] 08/09/17 Farrah Nicole APRN,ALEX [address] [place] [address] 08/09/17 Bry Echevarria MD [address] [place] [address] 08/09/17 Casey Berry II, DO 08/09/17 Shruti Vergara RN RN Registered Nurse 08/27/20 documented as of this encounter Additional Source Comments PLEASE NOTE: Replies to this message will not be received.[facility] and [facility]
--- OUTSIDE RECORDS SUMMARY | 2024-02-16 12:50 | XMS_ITS | Encounter Summary ---
Author Organization [facility] [employer] [facility] Address [address] [place] [address] Care Team Providers Care Mattress Maker Name Role Phone Jamal CARLISLE DO, Robert William Primary Care Provide r Unavailable Desiree Patrick MD Unavailable Farrah Nicole APRN,BUGGY RUNNER Unavailable Bry Echevarria MD Unavailable [phone] Jamal CARLISLE DO, Robert William Unavailable Unav Stephani Diaz MD Primary Care Provider Shruti Vergara RN Unavailable Unavailable Bianka Loera CNP Primary Care Provider Desiree Patrick MD Primary Care P rovider Encounter Details Date Type Department Care Team (Late st Contact Info) Description [address] [address] Social History Tobacco Use Types Packs/Day Years [...] on filedocumented in this encounter Care Teams Mattress Maker Relationship Specialty Start Date End Date Casey Berry II, DO PCP - General 11/22/06 08/17/19 Stephani Aleman MD PCP - General Family Medicine 08/18/19 09/16/20 Bianka Loera STEEL WELDER [address] [place] [address] [address] [place] [phone] PCP - General Nurse Practitioner Family 09/17/20 712/31 Desiree Patrick MD [address] [place] [address] PCP - General Electrophysiology 02/23/22 03/09/22 Desiree Patrick MD [address] [place] [address] 08/09/17 Farrah Nicole APRN,BUGGY RUNNER [address] [place] [address] 08/09/17 Bry Echevarria MD [address] [place] [address] 08/09/17 Casey Berry II, DO 08/09/17 Shruti Vergara RN RN Registered Nurse 08/27/20 documented as of this encounter Additional Source Comments PLEASE NOTE: Replies to this message will not be received.[facility] and [facility]
--- OUTSIDE RECORDS SUMMARY | 2024-02-16 12:50 | XMS_ITS | Encounter Summary ---
Author Organization [employer] Address [address] [place] [address] Care Team Providers Care Applications Development Analyst Name Role Phone Jamal CARLISLE DO, Robert William Primary Care Provide r Unavailable Desiree Patrick MD Unavailable Farrah Nicole APRN,DISTRIBUTION OPERATION SUPERVISOR Unavailable [phone] Bry Echevarria MD Unavailable Jamal CARLISLE DO, Robert William Unavailable Unav Stephani Diaz MD Primary Care Provider Shruti Vregara RN Unavailable Unavailable Bianka Loera CNP Primary Care Provider [phone] Desriee Patrick MD Primary Care P rovider Encounter Details Date Type Department Care Team (Late st Contact Info) Description 08/22/2014 Historical Conversion [facility] Family Medicine [address] [place] [address] Casey Berry II, DO Social History Tobacco Use Types Packs/Day Years Used Date Smoking Tobacco: Never Assessed Sex and Gender Information Value Date Recorded Sex Assigned at Not on file Gender Identity Not on file Sexual Orientation Not on file documented as of this encounter Progress Notes * Casey Berry II, DO - 01/29/2015 12:00 AM CDT CRISTIAN BLEDSOE : 1945 HX: [id number] DOS: 01/29/2015 CHIEF COMPLAINT: Follow up after [...] by:Casey Berry D.O. Feb 11 2015 7:55AM FOSTER CARE WORKER * Casey Berry II, DO - 09/10/2014 12:00 AM CST CRISTIAN BLEDSOE : 1945 HX: [id number] DOS: 09/10/2014 CHIEF COMPLAINT: Follow up of [...] by:Casey Berry D.O. Sep 26 2014 3:33PM FOSTER CARE WORKER documented in this encounter Miscellaneous Notes * [...] signed by:DEYANIRA FRANCOIS Dec 06 2014 9:03AM FOSTER CARE WORKER documented in this encounter Plan of Treatment Not on file documented as of this encounter Visit Diagnoses Not on filedocumented in this encounter Care Teams Applications Development Analyst Relationship Specialty Start Date End Date Casey Brery II, DO PCP - General 11/22/06 08/17/19 Stephani Aleman MD PCP - General Family Medicine 08/18/19 09/16/20 Bianka Loera, SAP ENTERPRISE PORTAL CONSULTANT [address] [place] [phone] PCP - General Nurse Practitioner Family 09/17/2001/10 Desiree Patrick MD [address] [place] [address] PCP - General Electrophysiology 02/23/22 03/09/22 Desiree Patrick MD [address] [place] [address] 08/09/17 Farrah Nicole APRN,DISTRIBUTION OPERATION SUPERVISOR [address] [place] [address] 08/09/17 Bry Echevarria MD [address] [place] [address] [place] [address] 08/09/17 Casey Berry II, DO 08/09/17 Shruti Vergara RN RN Registered Nurse 08/27/20 documented as of this encounter Additional Source Comments PLEASE NOTE: Replies to this message will not be received.[facility] and [facility]
--- OUTSIDE RECORDS SUMMARY | 2024-02-16 12:50 | XMS_ITS | Encounter Summary ---
Author Organization [employer] Address [address] [place] [address] Care Team Providers Care Stereo Equipment Repairer Name Role Phone Jamal CARLISLE DO, Robert William Primary Care Provide r Unavailable Desiree Patrick MD Unavailable Farrah Nicole APRN,PIPEMAN Unavailable Bry Echevarria MD Unavailable [phone] Jamal CARLISLE DO, Robert William Unavailable Unav Stephani Diaz MD Primary Care Provider [phone] Shruti Vergara RN Unavailable Unavailable Bianka Loera CNP Primary Care Provider [phone] Desiree Patrick MD Primary Care P rovider Encounter Details Date Type Department Care Team (Late st Contact Info) Description 03/10/2016 Historical Conversion [facility] Family Medicine [address] [place] [address] Casey Berry II, DO Social History Tobacco [...] on filedocumented in this encounter Care Teams Stereo Equipment Repairer Relationship Specialty Start Date End Date Casey Berry II, DO PCP - General 11/22/06 08/17/19 Stephani Aleman MD PCP - General Family Medicine 08/18/19 09/16/20 Bianka Loera CNP [address] [place] [phone] PCP - General Nurse Practitioner Family 09/17/2001/10 [place] [address] [place] [address] PCP - General Electrophysiology 02/23/22 03/09/22 Desiree Patrick MD [address] [place] [facility] [address] 08/09/17 Farrah Nicole APRN,[facility] [address] [place] [address] 08/09/17 Bry Echevarria MD [facility] [place] [address] 08/09/17 Casey Berry II, DO 08/09/17 Shruti Vergara RN RN Registered Nurse 08/27/20 documented as of this encounter Additional Source Comments PLEASE NOTE: Replies to this message will not be received.[facility] and [facility]
--- OUTSIDE RECORDS SUMMARY | 2024-02-16 12:50 | XMS_ITS | Encounter Summary ---
Author Organization [employer] Address [address] [place] [address] Care Team Providers Care Caser [employer]oe Parts Name Role Phone Jamal CARLISLE DO, Robert William Primary Care Provide r Unavailable Desiree Patrick MD Unavailable Farrah Nicole APRN,[employer] Unavailable [phone] Bry Echevarria MD Unavailable [phone] Jamal CARLISLE DO, Robert William Unavailable Unav Stephani Diaz MD Primary Care Provider [phone] Shruti Vergara RN Unavailable Unavailable Bianka Loera CNP Primary Care Provider [phone] Desiree Patrick MD Primary Care P rovider Encounter Details Date Type Department Care Team (Late st Contact Info) Description 12/11/2015 Historical Conversion [facility] Family Medicine [address] [place] [address] Casey Berry II, DO Social History Tobacco [...] on filedocumented in this encounter Care Teams [employer]er [employer]oe Parts Relationship Specialty Start Date End Date Casey Berry II, DO PCP - General 11/22/06 08/17/19 Stephani Aleman MD PCP - General Family Medicine 08/18/19 09/16/20 Bianka Loera CNP [address] [place] [phone] PCP - General Nurse Practitioner Family 09/17/2001/10 [place] [address] [place] [address] PCP - General Electrophysiology 02/23/22 03/09/22 Desiree Patrick MD [address] [place] [address] 08/09/17 Farrah Nicole APRN,[facility] [address] [place] [address] 08/09/17 Bry Echevarria MD [address] [place] [address] [place] [address] 08/09/17 Casey Berry II, DO 08/09/17 Shruti Vergara RN RN Registered Nurse 08/27/20 documented as of this encounter Additional Source Comments PLEASE NOTE: Replies to this message will not be received.[facility] and [facility]
--- OUTSIDE RECORDS SUMMARY | 2024-02-16 12:50 | XMS_ITS | Encounter Summary ---
Author Organization [facility] [employer] [facility] Address [address] [place] [address] Care Team Providers Care Bagging Salvager Name Role Phone Jamal CARLISLE DO, Robert William Primary Care Provide r Unavailable Desiree Patrick MD Unavailable Farrah Nicole APRN,SUPERVISOR [employer]OVING DEPARTMENT Unavailable Bry Echevarria MD Unavailable [phone] Jamal CARLISLE DO, Robert William Unavailable Unav Stephani Diaz MD Primary Care Provider Shruti Vergara RN Unavailable Unavailable Bianka Loera CNP Primary Care Provider [phone] Desiree Patrick MD Primary Care P rovider Encounter Details Date Type Department Care Team (Late st Contact Info) Description 11/26/2015 HIM Director Internal Audit [facility] Heart & Vascular [address] [address] Rajeev Barlow MD Social History [...] Order(s): MYOCARDIAL PERFUSION PHARMACOLOGIC STRESS PERFORMED BY: [facility] [employer] [place], [place] SITE: [place], [place] INTERPRETED BY: [facility], [place] PHARMACOLOGIC MYOCARDIAL PERFUSION SCAN Study supervised [...] TYPE: Rest/stress, single isotope gated SPECT imaging. [id number]-[id number]: 12.5 mCi (IV) for the rest injection. Cp56f-MZECILUFV: 33.1 mCi (IV) for the stress injection. [...] function. Note: This study was performed by Marbury Quigo. Only the interpretation was performed at the [facility] [place]. Electronically signed Rajeev Barlow MD, [facility] [employer] , 03:10 P A dsc/Doc#: [id number] cc: documented in this encounter Plan of Treatment Not on file documented as of this encounter Procedures Procedure Name Priority Date/Time Associated Diagnosis Comments MYOCARDIAL PERFUSION PHARMACOLOGIC STRESS 11/26/2015 documented in this encounter Results * MYOCARDIAL PERFUSION PHARMACOLOGIC STRESS (11/26/2015) Anatomical Region Laterality Modality Other 11/26/2015 Narrative Procedure Note Rajeev Barlow MD - 11/26/2015 12:00 AM CDT PERFORMED BY: [employer] [place], [place] SITE: [place], [place] INTERPRETED BY: [facility]BBS FERRY, [place] PHARMACOLOGIC MYOCARDIAL PERFUSION SCAN Study supervised [...] TYPE: Rest/stress, single isotope gated SPECT imaging. Ea26r-THARZVPWT: 12.5 mCi (IV) for the rest injection. Co79t-IGTDPXPMA: 33.1 mCi (IV) for the stress injection. [...] function. Note: This study was performed by Marbury Quigo. Only theinterpretation was performed at the [facility] [place]. Electronically signed Rajeev Barlow MD, [facility] [employer] , 03:10 P A dsc/Doc#: [id number] cc: Rajeev Barlow MD CAR NUC MED/STRESS documented in this encounter Visit Diagnoses Not on filedocumented in this encounter Care Teams Bagging Salvager Relationship Specialty Start Date End Date Casey Berry II, DO PCP - General 11/22/06 08/17/19 Stephani Aleman MD PCP - General Family Medicine 08/18/19 09/16/20 Bianka Loera CNP [address] [place] [address] PCP - General Nurse Practitioner Family 09/17/2001/10 Desiree Patrick MD [address] [place] [address] PCP - General Electrophysiology 02/23/22 03/09/22 Desiree Patrick MD [address] [facility] [place] [place] [address] 08/09/17 Farrah Nicole APRN,SUPERVISOR [employer]OVING DEPARTMENT [address] [place] [address] 08/09/17 Bry Echevarria MD [address] [place] [address] 08/09/17 Casey Berry II, DO 08/09/17 Shruti Vergara RN RN Registered Nurse 08/27/20 documented as of this encounter Additional Source Comments PLEASE NOTE: Replies to this message will not be received.[facility] and [facility]
--- OUTSIDE RECORDS SUMMARY | 2024-02-16 12:50 | XMS_ITS | Encounter Summary ---
Author Organization [employer] Address [address] [place] [address] Care Team Providers Care Interstate Planner Name Role Phone Jamal CARLISLE DO, Robert William Primary Care Provide r Unavailable Desiree Patrick MD Unavailable Farrah Nicole APRN,TICKET AGENT Unavailable Bry Echevarria MD Unavailable Jamal CARLISLE DO, Robert William Unavailable Unav Stephani Diaz MD Primary Care Provider Shruti Vergara RN Unavailable Unavailable Bianka Loera CNP Primary Care Provider Desiree Patrick MD Primary Care P rovider Encounter Details Date Type Department Care Team (Late st Contact Info) Description 08/22/2014 Historical Conversion [facility] Family Medicine [address] [place] [address] Casey Berry II, DO Social History Tobacco Use Types Packs/Day Years Used Date Smoking Tobacco: Never Assessed Sex and Gender Information Value Date Recorded Sex Assigned at Not on file Gender Identity Not on file Sexual Orientation Not on file documented as of this encounter Last Filed Vital Signs Vital Sign Reading Time Taken Comments Blood Pressure 145/88 08/22/2014 12:00 AM CALCULATOR OPERATOR Pulse - - Temperature - - Respiratory Rate - - Oxygen Saturation - - Inhaled Oxygen Concentration - - Weight 90.7 kg (200 lb) 08/22/2014 12:00 AM CALCULATOR OPERATOR Height 185.4 cm (6' 1) 08/22/2014 12:00 AM CALCULATOR OPERATOR Body Mass Index 26.39 08/22/2014 12:00 AM CALCULATOR OPERATOR documented in this encounter Plan of Treatment Not on file documented as of this encounter Visit Diagnoses Not on filedocumented in this encounter Care Teams Interstate Planner Relationship Specialty Start Date End Date Casey Berry II, DO PCP - General 11/22/06 08/17/19 Stephani Aleman MD PCP - General Family Medicine 08/18/19 09/16/20 Bianka Loera CNP [address] [place] [address] [address] [place] [address] PCP - General Nurse Practitioner Family 09/17/2001/10 Desiree Patrick MD [address] [place] [address] PCP - General Electrophysiology 02/23/22 03/09/22 Desiree Patrick MD [address] [place] [address] 08/09/17 Farrah Nicole, BOLOGNA MAKER,TICKET AGENT [address] [place] [address] 08/09/17 Bry Echevarria MD [address] [place] [address] [facility] [id number] 08/09/17 Casey Berry II, DO 08/09/17 Shruti Vergara RN RN Registered Nurse 08/27/20 documented as of this encounter Additional Source Comments PLEASE NOTE: Replies to this message will not be received.[facility] and On [facility]
--- OUTSIDE RECORDS SUMMARY | 2024-02-16 12:50 | XMS_ITS | Encounter Summary ---
Author Organization [employer] Address [address] [place] [address] Care Team Providers Care Sheet Manager Name Role Phone Jamal CARLISLE DO, Robert William Primary Care Provide r Unavailable Desiree Patrick MD Unavailable Farrah Nicole APRN,BOX LINING MACHINE FEEDER Unavailable Bry Echevarria MD Unavailable Jamal CARLISLE DO, Robert William Unavailable Unav Stephani Diaz MD Primary Care Provider Shruti Vergara RN Unavailable Unavailable Bianka Loera CNP Primary Care Provider [phone] Desiree Patrick MD Primary Care P rovider Encounter Details Date Type Department Care Team (Late st Contact Info) Description 01/03/2014 Historical Conversion [facility] Family Medicine [address] [place] [address] Errol Berry II, DO Social History Tobacco [...] AM CDT CRISTIAN BLEDSOE : 1945 HX: [id number] DOS: 01/03/2014 CHIEF COMPLAINT: Back pain. HISTORY [...] by:ERROL BERRY D.O. Jan 17 2014 7:34AM TOPSTITCHER LOCKSTITCH documented in this encounter Plan of Treatment Not on file documented as of this encounter Visit Diagnoses Not on filedocumented in this encounter Care Teams Sheet Manager Relationship Specialty Start Date End Date Errol Berry II, DO PCP - General 11/22/06 08/17/19 Stephani Aleman MD PCP - General Family Medicine 08/18/19 09/16/20 Bianka Loera SALESPERSON [employer] [address] [place] [address] PCP - General Nurse Practitioner Family 09/17/20 7/12/31 Desiree Patrick MD [address] [place] [place] [address] PCP - General Electrophysiology 02/23/22 03/09/22 Desiree Patrick MD [address] [place] [address] 08/09/17 Farrah Nicole APRN,BOX LINING MACHINE FEEDER [address] [place] [place] [address] 08/09/17 Bry Echevarria MD [facility] [place] [address] 08/09/17 Errol Berry II, DO 08/09/17 Shruti Vergara RN RN Registered Nurse 08/27/20 documented as of this encounter Additional Source Comments PLEASE NOTE: Replies to this message will not be received.[facility] and [facility]
--- OUTSIDE RECORDS SUMMARY | 2024-02-16 12:50 | XMS_ITS | Encounter Summary ---
Author Organization [employer] Address [address] [place] [address] Care Team Providers Care Mathematical Statistician Name Role Phone Jamal CARLISLE DO, Robert William Primary Care Provide r Unavailable Desiree Patrick MD Unavailable Farrah Nicole APRN,RN EMERGENCY ROOM Unavailable Bry Echevarria MD Unavailable Jamal CARLISLE DO, Robert William Unavailable Unav Stephani Diaz MD Primary Care Provider Shruti Vergara RN Unavailable Unavailable Bianka Loera CNP Primary Care Provider Desiree Patrick MD Primary Care P rovider Encounter Details Date Type Department Care Team (Late st Contact Info) Description 08/27/2016 Historical Conversion [facility] Family Medicine [address] [place] [address] Moon Maloney MD Social History Tobacco Use [...] Comments Blood Pressure 175/101 08/27/2016 12:00 AM CARETAKER RESORT Pulse - - Temperature - - Respiratory Rate - - Oxygen Saturation - - Inhaled Oxygen Concentration - - Weight 95.7 kg (210 lb 15.7 oz) 017 12:00 AM CARETAKER RESORT Height - - Body Mass Index 27.84 [...] on filedocumented in this encounter Care Teams Mathematical Statistician Relationship Specialty Start Date End Date Casey Berry II, DO PCP - General 11/22/06 08/17/19 Stephani Aleman MD PCP - General Family Medicine 08/18/19 09/16/20 Bianka Loera CNP [address] [place] [address] PCP - General Nurse Practitioner Family 09/17/2001/10 [place] [address] [place] [address] PCP - General Electrophysiology 02/23/22 03/09/22 Desiree Patrick MD [address] [facility] [place] [address] 08/09/17 Farrah Nicole APRN,[facility] [address] [place] [address] 08/09/17 Bry Echevarria MD [address] [place] [address] [place] [address] 08/09/17 Casey Berry II, DO 08/09/17 Shruti Vergara RN RN Registered Nurse 08/27/20 documented as of this encounter Additional Source Comments PLEASE NOTE: Replies to this message will not be received.[facility] and [facility]
--- OUTSIDE RECORDS SUMMARY | 2024-02-16 12:51 | XMS_ITS | Continuity of Care Document ---
Author Organization [facility] Address [address] [place] [address] Phone Care Team Providers Care Pin Sticker Name Role Phone [facility] Unavailable Unavailable Allergies, Adverse Reactions, Alerts Substance Reaction Status Criticality Sulfa (Sulfonamide Antibiotics) rash Active No Information PENICILLIN rash Active No Information Medications Medication Instructions Dosage Effective Dates (start - stop) Status Comments Sohx-Lzgb-Swjsd 1%/0.5%/.01% OPHTHALMIC DROPS Apply one drop to [...] Diagnoses Date Provider Providers Copied on Encounter [facility], [address] [place], [id number], [place] tel:[phone] [facility] No Information 2 [facility]. [address] [place], [id number]. tel:[phone] Referring Provider: Timoteo Zhao, [address] [place], [address] . tel:[phone] [facility], [address] [place], [place], [id number], [place] tel:[phone] [facility] No Information 2 [facility]. [address] [place], [id number]. tel:[phone] Referring Provider: Timoteo Zhao, [address] [place], [address] . tel:[phone] [facility], [address] [place], [id number], [place] tel:[phone] [facility] No Information 9 [facility]. [address] [place], [id number]. tel:[phone] Referring Provider: Timoteo Zhao, [address] [place], [address] . tel:[phone] [facility], [address] [place], [id number], [place] tel:[phone] [facility] No Information 9 [facility]. [address] [facility], [place], [place], [id number]. tel:[phone] Referring Provider: Timoteo Zhao, [address] [place] [address], [address] . tel:[phone] [facility], [address] [place], [place], [id number], tel:[phone] [facility] No Information 9 Dave Mahmood. [address] [place] [address], [id number], [place]. tel:[phone] Family History Family Member Type Diagnosis Age At Onset No Information Payers Payer name Insurance type Covered constitution party ID Authoriza tion(s) [facility] [place] [id number] Social History Type Description Quantity Date Captured [...]
--- OUTSIDE RECORDS SUMMARY | 2024-02-16 12:51 | XMS_ITS | Data Portability ---
Author Organization [facility], [facility] Address [address] [facility] [address] [place] [id number] Care Team Providers Care Neurosurgery Research Director Name Role Phone [facility] Primary Care Provider Assessment No assessment recorded. [...] By Organization Details Last Modified Time 03/17/2022 [id number] will plan follow up in December next year with PSA. [email or web address] Not available 03/17/2022 14:11:53 12/10/2022 [id number] doing well with undetectable PSA, plan follow up 1 year with PSA [email or web address] Not available 12/10/2022 11:43:14 12/14/2023 [id number] rtc 1 year with PSA. [email or web address] Not available 12/14/2023 11:08:24 Reason for Referral None Reported. Results Created Date Observation Date Name Description Value Unit Range Abnormal Flag LastModifiedBy Organization Detail LastModifiedTime Result Notes None recorded. Medical Equipment None Reported. Allergies Allergen ID Allergen Name Allergen Category Reaction Reaction Severity Criticality Documentation Date Start Date Code Code System Note Provider Name and Address Organization Details Recorded Time 267245 Medicinal product containin g penicilli n and acting as antibacte rial agent (product) medicatio n Not available Not available Not available 12/10/2022 93819 05 SNOMED Dona joaquin [facility] 11:31:20 299066 Substance with sulfonami de structure and antibacte rial mechanism of action (substanc e) medicatio n Not available Not available Not available 12/10/2022 93529 8003 MILADIS Dona joaquin [facility] 11:31:26 Medications Name Sig Start [...] Updated DateTime 03/17/2022 185.42 cm 26 kg/m2 96351.7 g Winston Diane [facility] 03/17/2022 13:52:15 Date Recorded Body height Body mass index (BMI) Body weight Provider Name and Address Organization Details Last Updated DateTime 12/10/2022 185.42 cm 26 kg/m2 47110.7 g Dona Hull [facility] 12/10/2022 11:31:06 Date Recorded Body height Body mass index (BMI) Body weight Provider Name and Address Organization Details Last Updated DateTime 12/14/2023 185.42 cm 26 kg/m2 84451.7 g Amandeep Knox MD [address] [facility] [address], [place], [address] 12/14/2023 10:57:12 Social History Question Answer Notes LastModified by Organizat ion Details LastModified Time Tobacco Smoking Status Former Smoker Winston joaquin, [facility] 03/17/2022 13:52:26 What Is Your Level Of Alcohol Consumption? Occasional [email or web address] Information not available 12/10/2022 How Many Times Per Week Do You Consume Alcohol? 1-2 Times Per Week [email or web address] Information not available 12/10/2022 What Is Your Level Of Caffeine Consumption? Occasional [email or web address] Information not available 12/10/2022 When Did You Quit Smoking? 16+yearssincel astcigarette [email or web address] Information not available 12/10/2022 What Was The Date Of Your Most Recent Tobacco Screening? 12/14/2023 Information not available 12/14/2023 Have You Ever Been Counseled For Unhealthy Alcohol Use? No Information not available 12/14/2023 Do You Use Any Illicit Or Recreational Drugs? No [email or web address] Information not available 12/10/2022 Has Tobacco Cessation Counseling Been Provided? No [email or web address] Information not available 12/10/2022 Do You Or Have You Ever Used Any Other Forms Of Tobacco Or Nicotine? No [email or web address] Information not available 12/10/2022 How Many Days In The Past Year Have You Consumed 5 Or More Drinks? 0 [email or web address] Information no t available 12/14/2023 Sex: Unknown Functional Status None recorded. Mental Status None recorded. Family History Relationship Description Onset Age of this Age Resolved Age Notes Father Family history of malignant neoplasm of oral cavity Medical History Condition Response Sexually Transmitted Infection N Diabetes N Other N Bleeding Disorder N High Blood Pressure Y Kidney Stones N High Cholesterol N GERD/Acid Reflux N Heart Disease N Cancer Y Depression N Lung Disease N Immunizations Vaccine Type Date Status Provider Name and Address Organization Details Recorded Time COVID-19, mRNA, LNP-S, PF, 30 mcg/0.3 mL dose 08/15/2020 completed Amandeep Knox MD [address] [place] [address],[facility] [address], [address], [facility] 12/14/2023 10:57:18 COVID-19, mRNA, LNP-S, PF, 30 mcg/0.3 mL dose 09/05/2020 completed Amandeep Knox MD [address] [place] [address],[facility] [address], [address], [facility] 12/14/2023 10:57:18 COVID-19, mRNA, LNP-S, PF, 30 mcg/0.3 mL dose 04/29/2021 completed Amandeep Knox MD [address] [place] [address],[address], [place], [address], [facility] 12/14/2023 10:57:19 COVID-19, mRNA, LNP-S, PF, 30 mcg/0.3 mL dose, enrique-sucrose 11/04/2021 completed Amandeep Knox MD [address] [place] [address],[address], [place], [address], [facility] 12/14/2023 10:57:19 pneumococcal polysaccharide PPV23 01/28/2010 completed Amandeep Knox MD [address] [place] [address],[facility] [address], [place], [address], [facility] 12/14/2023 10:57:19 Tdap 08/21/2013 completed Amandeep Knox MD [address] [place] [address],[address], [address], [facility] 12/14/2023 10:57:19 Novel [id number], all formulations 07/23/2009 completed Amandeep Knox MD [address] [place] [address],[address], [address], [facility] 12/14/2023 10:57:19 Pneumococcal conjugate PCV 13 08/28/2015 completed Amandeep Knox MD [address] [place] [address],[address], [place], [address], [facility] 12/14/2023 10:57:19 Pneumococcal conjugate PCV 13 08/28/2016 completed Amandeep Knox MD [address] [place] [address],[address], [place], [address], [facility] 12/14/2023 10:57:19 zoster live 01/28/2010 completed Amandeep Knox MD [address] [place] [address],[address], [place], [address], [facility] 12/14/2023 10:57:19 Influenza, high-dose, trivalent, PF 03/30/2017 completed Amandeep Knox MD [address] [place] [address],[address], [place], [address], [facility] 12/14/2023 10:57:19 Influenza, high-dose, trivalent, PF 04/15/2016 completed Amandeep Knox MD [address] [place] [address],[address], [place], [address], [facility] 12/14/2023 10:57:19 Influenza, high-dose, trivalent, PF 04/26/2018 completed Amandeep Knox MD [address] [place] [address],[address] [place] [address], [address], [facility] 12/14/2023 10:57:19 Influenza, high-dose, trivalent, PF 05/10/2019 completed Amandeep Knox MD [address] [place] [address],[address] [place] [address], [address], [facility] 12/14/2023 10:57:19 Influenza, high-dose, trivalent, PF 05/28/2014 completed Amandeep Knox MD [address] [place] [address],[address], [address], [facility] 12/14/2023 10:57:19 Influenza, split virus, trivalent, preservative 05/05/2010 completed Amandeep Knox MD [address] [place] [address],[address] [place] [address], [address], [facility] 12/14/2023 10:57:19 Influenza, split virus, trivalent, preservative 05/09/2007 completed Amandeep Knox MD [address] [place] [address],[address] [place] [address], [address], [facility] 12/14/2023 10:57:19 Influenza, split virus, trivalent, preservative 05/14/2006 completed Amandeep Knox MD [address] [place] [address],[address], [place], [address], [facility] 12/14/2023 10:57:19 Influenza, split virus, trivalent, preservative 06/03/2005 completed Amandeep Knox MD [address] [place] [address],[address], [place], [address], [facility] 12/14/2023 10:57:19 Influenza, split virus, trivalent, preservative 06/15/2012 completed Amandeep Knox MD [address] [place] [address],[address], [place], [address], [facility] 12/14/2023 10:57:19 Influenza, split virus, trivalent, preservative 06/19/2013 completed Amandeep Knox MD [address] [place] [address],[address], [place], [address], [facility] 12/14/2023 10:57:19 Influenza, split virus, trivalent, preservative 06/30/2008 completed Amandeep Knox MD [address] [place] [address],[address], [place], [address], [facility] 12/14/2023 10:57:19 Influenza, split virus, trivalent, PF 07/23/2009 completed Amandeep Knox MD [address] [place] [address],[address] [place] [address], [address], [facility] 12/14/2023 10:57:19 Influenza, split virus, trivalent, PF 03/26/2011 completed Amandeep Knox MD [address] [place] [address],[address], [place], [address], [facility] 12/14/2023 10:57:19 Influenza, split virus, quadrivalent, PF 03/12/2020 completed Amandeep Knox MD [address] [place] [address],[address] [facility], [place], [address], [facility] 12/14/2023 10:57:19 Influenza, split virus, quadrivalent, PF 03/25/2021 completed Amandeep Knox MD [address] [place] [address],[address], [place], [address], [facility] 12/14/2023 10:57:19 Influenza, split virus, quadrivalent, PF 07/02/2015 completed Amandeep Knox MD [address] [facility],[address], [place], [address], [facility] 12/14/2023 10:57:19 Past Encounters Encounter ID Performer Location Encounter Start Date Encounter Closed Date Diagnosis/Indication Diagnosis SNOMED-CT Code [id number] Amandeep Knox MD [address] [place] [address] 03/17/2022 13:41:31 03/19/2022 16:06:51 Malignant tumor of prostate [id number] Amandeep Knox MD [address] [address] 12/10/2022 11:09:53 12/18/2022 17:00:28 Malignant tumor of prostate [id number] Amandeep Knox MD [address] [place] [address] 12/14/2023 10:50:05 12/15/2023 15:17:05 Carcinoma of prostate [id number] Health Concerns Section Related Observation LastModified by Organization Detai ls LastModified Time None Recorded Concern Status LastModified by Organization Details LastModified Time None Recorded Advance Directives Directive None Recorded Payers Encounter Date Sequence Insurance Name Policy Number Policy Garcia Covered Member ID Garcia Member ID Guarantor Name 03/17/2022 1 [employer] [employer] - [employer] 106 Rohan Carroll [id number] Rohan Carroll 12/10/2022 1 [place] 106 Rohan Carroll [id number] Rohan Carroll 12/14/2023 1 [place] 106 Rohan Carroll [id number] Rohan Carroll Notes Date Note Type Note Provider Name and Address Organization Details Recorded Time 03/17/2022 text/html HPI Notes: hx Ca P. had lupron and XRT done in 2017 in [place]. previous patient of Allyssa Haider. had an episode of XRT cystitis maybe about a year ago, none since. had cysto then. PSA been low 0.02-0.03. last checked 12/2021. Amandeep Knox MD [address] [place] [address],[address], [place], [address], [facility] 03/17/2022 14:15:54 12/10/2022 text/html HPI Notes: follo w up CaP, had lupron and XRT in 2017. PSA last month still undetectable at his local lab. voiding OK, no heme/dysuria. Amandeep Knox MD [address] [place] [address],[address], [place], [address], [facility] 12/10/2022 11:44:03 12/14/2023 text/html HPI Notes: PSA 11/19/23: <0.06ng/mL follow up for prostate cancer. hx CaP tx with XRT and 8 month lupron in 2017. voiding OK, had some hematuria after a deep tissue massage a while back. Amandeep Knox MD [address] [place] [address],[address], [place], [address], [facility] 12/14/2023 11:09:20
--- OUTSIDE RECORDS SUMMARY | 2024-02-16 12:51 | XMS_ITS | Encounter Summary ---
Author Organization [facility] Address [address] [place] [address] Care Team Providers Care Tree Worker Name Role Phone Unavailable Primary Care Provider Unavailabl e Reason for Visit * Reason Comments Anticoagulation Encounter Details Date Type Department Care Team (Late st Contact Info) Description 12/03/2023 Telephone Anticoagulation Centralized Services [id number] [address] [place] [phone] Thierry Lin MD [address] [place] [address] Anticoagulation Social History Tobacco Use Types [...]
--- OUTSIDE RECORDS SUMMARY | 2024-02-16 12:51 | XMS_ITS | Encounter Summary ---
Author Organization [facility] Address [address] [place] [address] Care Team Providers Care Director Of Content Marketing Name Role Phone Unavailable Primary Care Provider Unavailabl e Reason for Visit * Reason Comments WEIGHT LOSS Encounter Details Date Type Department Care Team (Late st Contact Info) Description 02/15/2024 Telephone [facility] [address] [place] [address] Ashely El, RN WEIGHT LOSS Social History Tobacco Use Types Packs/Day Years Used Date Smoking Tobacco: Never Assessed Sex and Gender Information Value Date Recorded Sex Assigned at Not on file Gender Identity Not on file Sexual Orientation Not on file documented as of this encounter Nursing Notes * Ashely El, RN - 02/15/2024 4:41 PM CDT FYI- called she wanted to know if Carb/Levo can cause weight loss. States patient has lost 30lbs in less than a year. Was over 200lbs she reports and 188lbs when seen in September and now is 170lbs. Said she is the only one that notices it. He is seeing his regular neurologist soon. I advised he is seen by PCP as that rapid of weight loss could be related to other issues than his Parkinsons medications. documented in this encounter Plan of Treatment Not on file documented as of this encounter Visit Diagnoses Not on filedocumented in this encounter
--- OUTSIDE RECORDS SUMMARY | 2024-02-16 12:51 | XMS_ITS | Continuity of Care Document ---
Author Organization [facility] Address [address] [place] [address] Phone Care Team Providers Care Tow Operator Name Role Phone Timoteo Acosta D.O. Unavailable [...] Diagnoses Date Provider Providers Copied on Encounter [facility], [address] [place] [address], [id number], tel:[phone] [facility] No Information Dave Mahmood. [address] [place] [address], [id number], [place]. tel:[phone] [facility], [address] [place] [address], [id number], [place] tel:[phone] [facility] No Information Dave Mahmood. [address] [place] [address], [id number], [place]. tel:[phone] Referring Provider: Cherelle Borja [facility] [address], [place], [address]. tel:[phone] [facility], [address] [place] [address], [id number], [place] tel:[phone] [facility] No Information Dave Mahmood. [address] [place] [address], [id number], [place]. tel:[phone] Referring Provider: Cherelle Borja [facility] [address], [place], [address]. tel:[phone] OFFICE/OUTPATI ENT VISIT, EST [facility], [address] [place] [address], [id number], [place] tel:[phone] [facility] decreased vision (chief complaint) PCO-OSDrusen (degenerative ) of macula, left eye Dave Mahmood. [address] [place] [address], [id number], [place]. tel:[phone] Referring Provider: Cherelle Borja [facility] [address], [place], [address]. tel:[phone] [facility], [address] [place] [address], [id number], tel:[phone] [facility] No Information Dave Mahmood. [address] [place] [address], [id number], . tel:[phone] Referring Provider: Timoteo Zhao, [address] [place] [address], [id number]. tel:[phone] [facility], [address] [place] [address], [id number], tel:[phone] [facility] No Information Dave Mahmood. [address] [place] [address], [id number], [place]. tel:[phone] Referring Provider: Timoteo Zhao, [address] [place] [address], [address] [place] [address]. tel:[phone] OFFICE/OUTPATI ENT VISIT, [facility], [address] [place] [address], [address] [place] [address], tel:[phone] [facility] blurry vision (chief complaint) Cat-combined- ODCat-Pseudop hakia Dave Mahmood. [address] [place] [address], [id number], [place]. tel:[phone] Referring Provider: Timoteo Zhao, [address] [place] [address], [address] [place] [address]. tel:[phone] [facility], [address] [place] [address], [id number], [place] tel:[phone] [facility] No Information Dave Mahmood. [address] [place] [address], [id number], [place]. tel:[phone] Referring Provider: Timoteo Zhao, [address] [place] [address], [id number]. tel:[phone] [facility], [address] [place] [address], [id number], tel:[phone] [facility] No Information Dave Mahmood. [address] [place] [address], [id number], [place]. tel:[phone] Referring Provider: Timoteo Zhao, [address] [place] [address], [id number]. tel:[phone] [facility], [address] [place] [address], [id number], tel:[phone] [facility] No Information Dave Mahmood. [address] [place] [address], [id number], [place]. tel:[phone] Referring Provider: Timoteo Zhao, [address] [place] [address], [id number]. tel:[phone] [facility], [address] [place] [address], [id number], tel:[phone] [facility] No Information Dave Mahmood. [address] [place] [address], [id number], [place]. tel:[phone] Referring [facility]: [facility] [address], [place], [address]. tel:[phone] OFFICE/OUTPATI ENT VISIT, [facility], [address] [place] [address], [id number], [place] tel:[phone] [facility] 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 [address] [place] [address], [id number], [place]. tel:[phone] Referring Provider: Cherelle Borja [facility] [address], [place], [address]. tel:[phone] [facility], [address] [place] [address], [id number], [place] tel:[phone] [facility] No Information Dave Mahmood. [address] [place], [place], [id number], . tel:[phone] Referring Provider: Timoteo Zhao, [address] [place], [address]. 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
--- OUTSIDE RECORDS SUMMARY | 2024-02-16 12:51 | XMS_ITS | Continuity of Care Document ---
Author Organization [facility] Address [address] [place] [address] Care Team Providers Care Staff Consultant Name Role Phone [facility] Primary Care Provider Assessment No assessment [...] By Organization Details Last Modified Time 12/14/2023 [id number] rtc 1 year with PSA. [email or web address] Not available 12/14/2023 11:08:24 Reason for Referral None Reported. Medical Equipment None Reported. Allergies Allergen ID Allergen Name Allergen Category Reaction Reaction Severity Criticality Documentation Date Start Date Code Code System Note Provider Name and Address Organization Details Recorded Time [id number] Medicinal product containin g penicilli n and acting as antibacte rial agent (product) medicatio n Not available Not available Not available 12/10/2022 07113 05 [facility] 11:31:20 [id number] Substance with sulfonami de structure and antibacte rial mechanism of action (substanc e) medicatio n Not available Not available Not available 12/10/2022 [id number] MILADIS joaquin [facility] 3 11:31:26 Medications Name Sig [...] Updated DateTime 12/14/2023 185.42 cm 26 kg/m2 82719.7 g Amandeep Knox MD [address], [id number] 12/14/2023 10:57:12 Social History Question Answer Notes LastModified by Organizat ion Details LastModified Time Tobacco Smoking Status Former Smoker Winston joaquin [facility] 03/17/2022 13:52:26 What Is Your Level Of Alcohol Consumption? Occasional [email or web address] Information not available 12/10/2022 How Many Times Per Week Do You Consume Alcohol? 1-2 Times Per Week [email or web address] Information not available 12/10/2022 What Is Your Level Of Caffeine Consumption? Occasional [email or web address] Information not available 12/10/2022 When Did You Quit Smoking? 15+yearssinkaren enriquez [email or web address] Information not available 12/10/2022 What Was The Date Of Your Most Recent Tobacco Screening? 12/14/2023 Information not available 12/14/2023 Have You Ever Been Counseled For Unhealthy Alcohol Use? No [email or web address] Information not available 12/14/2023 Do You Use Any Illicit Or Recreational Drugs? No [email or web address] Information not available 12/10/2022 Has Tobacco Cessation Counseling Been Provided? No [email or web address] Information not available 12/10/2022 Do You Or Have You Ever Used Any Other Forms Of Tobacco Or Nicotine? No [email or web address] Information not available 12/10/2022 How Many Days In The Past Year Have You Consumed 5 Or More Drinks? 0 [email or web address] Information no t available 12/14/2023 Sex: Unknown Functional Status None recorded. Mental Status None recorded. Family History Relationship Description Onset Age of this Age Resolved Age Notes Father Family history of malignant neoplasm of oral cavity Medical History Condition Response Diabetes N Sexually Transmitted Infection N Other N Bleeding Disorder N High Blood Pressure Y Kidney Stones N Cancer Y Lung Disease N Depression N High Cholesterol N GERD/Acid Reflux N Heart Disease N Immunizations Vaccine Type Date Status Provider Name and Address Organization Details Recorded Time COVID-19, mRNA, LNP-S, PF, 30 mcg/0.3 mL dose 08/15/2020 completed Amandeep Knox MD [address] [place] [address], [address], [facility] 12/14/2023 10:57:18 COVID-19, mRNA, LNP-S, PF, 30 mcg/0.3 mL dose 09/05/2020 completed Amandeep Knox MD [address] [place] [address],[address], [address], [facility] 12/14/2023 10:57:18 COVID-19, mRNA, LNP-S, PF, 30 mcg/0.3 mL dose 04/29/2021 completed Amandeep Knox MD [address] [place] [address],[address], [address], [facility] 12/14/2023 10:57:19 COVID-19, mRNA, LNP-S, PF, 30 mcg/0.3 mL dose, enrique-sucrose 11/04/2021 completed Amandeep Knox MD [address] [place] [address],[address], [place], [address], [facility] 12/14/2023 10:57:19 pneumococcal polysaccharide PPV23 01/28/2010 completed Amandeep Knox MD [address] [place] [address],[address], [place], [address], [facility] 12/14/2023 10:57:19 Tdap 08/21/2013 completed Amandeep Knox MD [address] [place] [address],[address], [place], [address], [facility] 12/14/2023 10:57:19 Novel Yqcjzyprn-[id number], all formulations 07/23/2009 completed Amandeep Knox MD [address] [place] [address],[address], [place], [address], [facility] 12/14/2023 10:57:19 Pneumococcal conjugate PCV 13 08/28/2015 completed Amandeep Knox MD [address] [place] [address],[address], [place], [address], [facility] 12/14/2023 10:57:19 Pneumococcal conjugate PCV 13 08/28/2016 completed Amandeep Knox MD [address] [place] [address],[address], [place], [address], [facility] 12/14/2023 10:57:19 zoster live 01/28/2010 completed Amandeep Knox MD [address] [place] [address],[address], [place], [address], [facility] 12/14/2023 10:57:19 Influenza, high-dose, trivalent, PF 03/30/2017 completed Amandeep Knox MD [address] [place] [address],[address], [place], [address], [facility] 12/14/2023 10:57:19 Influenza, high-dose, trivalent, PF 04/15/2016 completed Amandeep Knox MD [address] [place] [address],[address], [place], [address], [facility] 12/14/2023 10:57:19 Influenza, high-dose, trivalent, PF 04/26/2018 completed Amandeep Knox MD [address] [place] [address],[address], [place], [address], [facility] 12/14/2023 10:57:19 Influenza, high-dose, trivalent, PF 05/10/2019 completed Amandeep Knox MD [address] [place] [address],[address], [place], [address], [facility] 12/14/2023 10:57:19 Influenza, high-dose, trivalent, PF 05/28/2014 completed Amandeep Knox MD [address] [place] [address],[address], [place], [address], [facility] 12/14/2023 10:57:19 Influenza, split virus, trivalent, preservative 05/05/2010 completed Amandeep Knox MD [address] [place] [address],[address] [place] [address], [address], [facility] 12/14/2023 10:57:19 Influenza, split virus, trivalent, preservative 05/09/2007 completed Amandeep Knox MD [address] [place] [address],[address] [place] [address], [address], [facility] 12/14/2023 10:57:19 Influenza, split virus, trivalent, preservative 05/14/2006 completed Amandeep Knox MD [address] [place] [address],[address] [place] [address], [address], [facility] 12/14/2023 10:57:19 Influenza, split virus, trivalent, preservative 06/03/2005 completed Amandeep Knox MD [address] [place] [address],[address], [address], [facility] 12/14/2023 10:57:19 Influenza, split virus, trivalent, preservative 06/15/2012 completed Amandeep Knox MD [address] [place] [address],[address], [address], [facility] 12/14/2023 10:57:19 Influenza, split virus, trivalent, preservative 06/19/2013 completed Amandeep Knox MD [address] [place] [address],[address], [address], [facility] 12/14/2023 10:57:19 Influenza, split virus, trivalent, preservative 06/30/2008 completed Amandeep Knox MD [address] [place] [address],[address] [place] [address], [address], [facility] 12/14/2023 10:57:19 Influenza, split virus, trivalent, PF 07/23/2009 completed Amandeep Knox MD [address] [place] [address],[address], [address], [facility] 12/14/2023 10:57:19 Influenza, split virus, trivalent, PF 03/26/2011 completed Amandeep Knox MD [address] [place] [address],[address] [place] [address], [address], [facility] 12/14/2023 10:57:19 Influenza, split virus, quadrivalent, PF 03/12/2020 completed Amandeep Knox MD [address] [place] [address],[address], [address], [facility] 12/14/2023 10:57:19 Influenza, split virus, quadrivalent, PF 03/25/2021 completed Amandeep Knox MD [address] [place] [address],[address] [place] [address], [address], [facility] 12/14/2023 10:57:19 Influenza, split virus, quadrivalent, PF 07/02/2015 completed Amandeep Knox MD [address] [place] [address],[address] [place] [address], [address], [facility] 12/14/2023 10:57:19 Past Encounters Encounter ID Performer Location Encounter Start Date Encounter Closed Date Diagnosis/Indication Diagnosis SNOMED-CT Code [id number] [facility]ep [facility] MD [facility] [address] [place] [address] 12/14/2023 10:50:05 12/15/2023 15:17:05 Carcinoma of prostate [id number] Health Concerns Section Related Observation LastModified by Organization Detai ls LastModified Time None Recorded Concern Status LastModified by Organization Details LastModified Time None Recorded Payers Encounter Date Sequence Insurance Name Policy Number Policy Garcia Covered Member ID Garcia Member ID Guarantor Name 12/14/2023 1 [facility] [employer] 106 Rohan Carroll [id number] Rohan Carroll Notes Date Note Type Note Provider Name and Address Organization Details Recorded Time 12/14/2023 text/html HPI Notes: PSA 11/19/23: <0.06ng/mL follow up for prostate cancer. hx CaP tx with XRT and 8 month lupron in 2017. voiding OK, had some hematuria after a deep tissue massage a while back. Amandeep Knox MD [address] [place] [address],[address], [place], [address], [facility] 12/14/2023 11:09:20
--- OUTSIDE RECORDS SUMMARY | 2024-02-16 12:51 | XMS_ITS | Continuity of Care Document ---
Author Organization [facility] Address [employer] [address] [place] [address] Phone Care Team Providers Care Senior Business Intelligence Analyst Name Role Phone VETO MALDONADO MD Unavailable Unavailable Procedures Procedure Date Subsqt Hosp-da E&m Minr Compl 7 Init Inpt Cons New/est Mod-hi 7 Advance Directives Directive Yes / No Effective Date File Name No Information Encounters Encounter Description Practice Location Reason(s) For Visit Diagnoses Date Provider Providers Copied on Encounter Subsqt Hosp-da E&m Minr Compl [facility], [employer], [place], [place], [id number], [place] tel:[phone] [facility] [employer] [facility] No Information TAY LAWS. [address] [facility] [address], [place], [address], [place]. tel:[phone] Referring Provider: GISEL VERDE, [address] [place] [address], [place], [id number]. tel:[phone] Init Inpt Cons New/est Mod-hi [facility], [address], [place], [place], [id number], [place] tel:[phone] [facility] No Information ISAC PETTY. [address], [address], [place], [id number], [place]. tel:[phone] Referring Provider: GISEL VERDE, [address] [address], [place], [place], [id number]. tel:[phone] Family History Family Member Type Diagnosis Age At Onset No Information Payers Payer name Insurance type Covered libertarian ID Authoriza tikayla(s) No Information Social History Type Description Quantity Date Captured Comments Sex Male Smoking Status No Information Chief Complaint And Reason For Visit No Information History Of Present Illness Encounter Date Complaint History Of Prese nt Illness No Information Instructions Date Instruction Additional Infor mation No Information Assessments Type Assessment Date No Information
--- OUTSIDE RECORDS SUMMARY | 2024-02-16 12:51 | XMS_ITS | Continuity of Care Document ---
Author Organization [facility] Address [address] [place] [address] Phone Care Team Providers Care Sales Executive Insurance Name Role Phone Triston TRENT, PhD, Fabio Unavailable Unavai lable Allergies, Adverse Reactions, Alerts Substance Reaction Status Criticality Sulfa (Sulfonamide Antibiotics) Active No Information Penicillins Hives, Dermatitis Active No Informa tion Procedures Procedure Date Office/Outpatient Visit,[facility] [place] 2023 Advance Directives Directive Yes / No Effective Date File Name No Information Encounters Encounter Description Practice Location Reason(s) For Visit Diagnoses Date Provider Providers Copied on Encounter [facility], [address], [place], [place], [id number], [place] tel:[phone] No Information Triston Mccarthy. [facility] [place], [address] [place] [address] [address], [place], [address], [place]. tel:[phone] Office/Outpat ient Visit,[facility], [address], [place], [place], [id number], [place] tel:[phone] [facility] [place] L4 fracture, initial encounter for closed fracture Kev Pfeiffer. [facility], [address] [place] [address] [address], [place], [address], [place]. tel:[phone] Referring Provider: Marli Sanders, [address], [address]. tel:[phone] Family History Family Member Type Diagnosis Age At Onset Father Problem (finding) Cancer, unknown type Payers Payer name Insurance type Covered constitution party ID Viet dillon(s) [facility] [id number] Social History Type Description Quantity Date Captured [...]
--- OUTSIDE RECORDS SUMMARY | 2024-02-16 12:51 | XMS_ITS | Clinical Summary ---
Author Organization [facility] Address [address] [place] [address] Care Team Providers Care Stiff Neck Loader Name Role Phone Unavailable Primary Care Provider Unavailabl e Source Comments You are receiving this document as you are listed as the primary care provider,follow-up provider, or the patient has been referred to you for consultation.This is in compliance with the Medicare and[facility] EHR Incentive Program,which states Providers who transition their patient to another setting of careor provider of care or refers their patient to another provider of care shouldprovide summary care record for each transition of care or referral. [facility] Allergies Active Allergy Reactions Criticality Noted Date [...] Type Department Care Team Description 02/15/2024 Telephone [facility] [address] [place], [place] [id number] Ashely El RN WEIGHT LOSS 12/03/2023 Telephone [facility] [id number], [place] [address] Thierry Lin MD Anticoagulation from Last [...]
--- OUTSIDE RECORDS SUMMARY | 2024-02-16 12:51 | XMS_ITS | Encounter Summary ---
Author Organization [facility] Address [address] [place] [address] Care Team Providers Care Mobile Application Developer Name Role Phone Jamal CARLISLE DO, Robert William Primary Care Provide r Unavailable Desiree Patrick MD Unavailable Farrah Nicole APRN, CNS Unavailable [phone] Bry Echevarria MD Unavailable [phone] Jamal CARLISLE DO, Robert William Unavailable Unav Stephani iDaz MD Primary Care Provider [phone] Shruti Vergara RN Unavailable Unavailable Bianka Loera CNP Primary Care Provider [phone] Desiree Patrick MD Primary Care P rovider Encounter Details Date Type Department Care Team (Late st Contact Info) Description 11/15/2006 Clinic Encounter [facility] Dermatology [address] [place] [address] Ganga Anderson MD Social History [...] Rohan Carroll : 1945 E: Ganga Anderson MD/[facility] DERMATOLOGY OFFICE VISIT CHART: [id number] P Date of Service: 2006 Doc #: [id number] P Attending Physician: None available SUBJECTIVE: This [...] treatment as indicated. [facility] documented in this encounter Plan of Treatment Not on file documented as of this encounter Visit Diagnoses Not on filedocumented in this encounter Care Teams Mobile Application Developer Relationship Specialty Start Date End Date Casey Berry II, DO PCP - General 11/22/06 08/17/19 Stephani Aleman MD PCP - General Family Medicine 08/18/19 09/16/20 Bianka Loera CNP [address] [place] [address] 2 [place] [address] PCP - General Nurse Practitioner Family 09/17/20 7/2 12/31 Desiree Patrick MD [address] [place] [address] PCP - General Electrophysiology 02/23/22 03/09/22 Desiree Patrick MD [address] [place] [address] 08/09/17 Farrah Nicole APRN,DRAGLINE ENGINEER [address] [place] [address] 08/09/17 Bry Echevarria MD [address] [place] [address] 08/09/17 Casey Berry II, DO 08/09/17 Shruti Vergara RN RN Registered Nurse 08/27/20 documented as of this encounter Additional Source Comments PLEASE NOTE: Replies to this message will not be received.[facility] and [facility]
== END 2024-02-16 12:46 | disposition home or self-care (01) ==
LOC: RAD 12:46
PROVIDERS: PCP Family Medicine; Visit Provider Internal Medicine
DX: I48.91 Unspecified atrial fibrillation (principal); I35.1 Nonrheumatic aortic (valve) insufficiency; I34.0 Nonrheumatic mitral (valve) insufficiency; I51.7 Cardiomegaly; I48.92 Unspecified atrial flutter
CPT/HCPCS: 85610; 93306

== ENCOUNTER 2024-03-09 15:23 | Outpatient (REF) | payer BC, SELFPAY ==
--- OUTSIDE RECORDS SUMMARY | 2024-03-09 15:35 | XMS_ITS | Encounter Summary ---
Author Organization [employer] Address [address] [place] [address] Care Team Providers Care Net Coordinator Name Role Phone Jamal CARLISLE DO, Robert William Primary Care Provide r Unavailable Desiree Patrick MD Unavailable Farrah Nicole APRN,EXPORT SPECIALIST Unavailable Bry Echevarria MD Unavailable Jamal CARLISLE DO, Robert William Unavailable Unav Stephani Diaz MD Primary Care Provider [phone] Shruti Vergara RN Unavailable Unavailable Bianka Loera CNP Primary Care Provider Desiree Patrick MD Primary Care P rovider Encounter Details Date Type Department Care Team (Late st Contact Info) Description 09/08/2018 Historical Conversion [facility] Family Medicine [address] [place] [id number] Casey Berry II, DO Social History Tobacco [...] Comments Blood Pressure 122/74 09/08/2018 12:00 AM CORDWAINER Pulse - - Temperature - - Respiratory Rate - - Oxygen Saturation - - Inhaled Oxygen Concentration - - Weight 92.8 kg (204 lb 9.7 oz) 09/08/2018 12:00 AM CORDWAINER Height 184 cm (6' 0.44) 09/08/2018 12:00 AM CORDWAINER Body Mass Index 27.41 09/08/2018 12:00 AM CORDWAINER documented in this encounter Functional Status Functional [...] on filedocumented in this encounter Care Teams Net Coordinator Relationship Specialty Start Date End Date Casey Berry II, DO PCP - General 11/22/06 08/17/19 Stephani Aleman MD PCP - General Family Medicine 08/18/19 09/16/20 Bianka Loera CNP [address] [facility] [address] [place] [address] PCP - General Nurse Practitioner Family 09/17/2001/10 [place] [address] [place] [address] PCP - General Electrophysiology 02/23/22 03/09/22 Desiree Patrick MD [address] [place] [address] 08/09/17 Farrah Nicole APRN,EXPORT SPECIALIST [address] [place] [address] 08/09/17 Bry Echevarria MD [address] [place] [address] [place] [address] 08/09/17 Casey Berry II, DO 08/09/17 Shruti Vergara RN RN Registered Nurse 08/27/20 documented as of this encounter Additional Source Comments PLEASE NOTE: Replies to this message will not be received.[facility]
--- OUTSIDE RECORDS SUMMARY | 2024-03-09 15:35 | XMS_ITS | Encounter Summary ---
Author Organization [employer] Address [address] [place] [address] Care Team Providers Care Harvester Operator Name Role Phone Jamal CARLISLE DO, Robert William Primary Care Provide r Unavailable Desiree Patrick MD Unavailable Farrah Nicole APRN,LENS INSPECTOR Unavailable Bry Echevarria MD Unavailable [phone] Jamal CARLISLE DO, Robert William Unavailable Unav Stephani Diaz MD Primary Care Provider Shruti Vergara RN Unavailable Unavailable Bianka Loera CNP Primary Care Provider Desiree Patrick MD Primary Care P rovider Encounter Details Date Type Department Care Team (Late st Contact Info) Description 09/19/2018 Historical Conversion [facility] Family Medicine [address] [place] [id number] Trish Barone, PT Social History Tobacco Use [...] by:Trish Barone PT Oct 12 2018 5:27PM PHOTOENGRAVING MACHINE OPERATOR/TENDER AMENDMENTS: 1. Patient received 4 feet of green theraband on this date of service. Electronically signed by:Trish Barone PT Oct 12 2018 5:28PM PHOTOENGRAVING MACHINE OPERATOR/TENDER * Trish Barone, PT - 10/03/2018 12:00 [...] per day with the dogs. He attends [employer] with his 2 times a week. OBJECTIVE: [...] by:Trish Barone PT Oct 03 2018 1:23PM PHOTOENGRAVING MACHINE OPERATOR/TENDER * Trish Barone, PT - 09/19/2018 12:00 AM CDT CRISTIAN BLEDSOE : 1945 HX: [id number] DOS: 09/19/2018 REFERRING PROVIDER: Casey Berry D.O. 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 He is currently [...] PATIENT RECEIVED: Patient received 30 minutes of ptmn-hy-qksr evaluation with three or more comorbidities and three or more elements addressed. Clinical presentation is evolving and clinical complexity is moderate. Patient also received canalith repositioning maneuvers on this date. Trish Barone, PT, [place] #[id number] Electronically signed by:Trish Barone PT Sep 26 2018 8:37AM PHOTOENGRAVING MACHINE OPERATOR/TENDER documented in this encounter Plan of Treatment Not on file documented as of this encounter Visit Diagnoses Not on filedocumented in this encounter Care Teams Harvester Operator Relationship Specialty Start Date End Date Casey Berry II, DO PCP - General 11/22/06 08/17/19 Stephani Aleman MD PCP - General Family Medicine 08/18/19 09/16/20 Bianka Loera CNP [address] [place] [address] [address] [place] [phone] PCP - General Nurse Practitioner Family 09/17/2001/10 Desiree Patrick MD [address] [place] [address] PCP - General Electrophysiology 02/23/22 03/09/22 Desiree Patrick MD [address] [place] [address] 08/09/17 Farrah Nicole APRN,LENS INSPECTOR [address] [place] [address] 08/09/17 Bry Echevarria MD [facility] [place] [address] 08/09/17 Casey Berry II, DO 08/09/17 Shruti Vergara RN RN Registered Nurse 08/27/20 documented as of this encounter Additional Source Comments PLEASE NOTE: Replies to this message will not be received.[facility]
--- OUTSIDE RECORDS SUMMARY | 2024-03-09 15:35 | XMS_ITS | Encounter Summary ---
Author Organization [facility] [employer] Address [address] [place] [address] Care Team Providers Care Slubber Machine Operator Name Role Phone Desiree Patrick MD Unavailable Farrah Nicole APRN, CNS Unavailable Bry Echevarria MD Unavailable [phone] Jamal CARLISLE DO, Robert William Unavailable Unav ailable Shruti Vergara RN Unavailable Unavailable Desiree Patrick MD Primary Care P rovider Encounter Details Date Type Department Care Team (Late st Contact Info) Description 02/25/[address] [address] Social History Tobacco Use Types [...] How often do you attend chur or restoration services? More than 4 times per year 04/04/2021 Do you belong to any clubs o r organizations such as jewish groups, unions, fraternal or athletic groups, or [...] and heating? Not hard at all 04/04/2021 [facility] [place] of Occupat ional Health - Occupational Stress [...] place to sleep or slept in a [facility] (including now)? No 04/04/2021 Depression (PHQ-9) Answer Date Recorded Last PHQ-9 Score 3 08/22/2021 Thoughts of self harm Not at all 08/22/2021 Education Answer Date Recorded What is the highest level of school you have completed or the highest degree you have received? Master's degree (e.g., MA, MS, Mirlande, MEd, SEO CONSULTANT, ROHIT) 08/19/2020 Sex and Gender Information Value [...] on filedocumented in this encounter Care Teams Slubber Machine Operator Relationship Specialty Start Date End Date Desiree Patrick MD [address] [place] [address] PCP - General Electrophysiology 02/23/22 03/09/22 Desiree Patrick MD [address] [place] [address] 08/09/17 Farrah Nicole APRN,TRUCK DRIVER HEAVY [address] [place] [address] 08/09/17 Bry Echevarria MD [address] [place] [address] 08/09/17 Casey Berry II, DO 08/09/17 Shruti Vergara RN RN Registered Nurse 08/27/20 documented as of this encounter Additional Source Comments PLEASE NOTE: Replies to this message will not be received.[facility] and [facility]
--- OUTSIDE RECORDS SUMMARY | 2024-03-09 15:35 | XMS_ITS | Encounter Summary ---
Author Organization [facility] Address [address] [place] [address] Care Team Providers Care Field Automobile Adjuster Name Role Phone Jamal CARLISLE DO, Robert William Primary Care Provide r Unavailable Desiree Patrick MD Unavailable Farrah Nicole APRN,COIN DEALER Unavailable Bry Echevarria MD Unavailable [phone] Jamal CARLISLE DO, Robert William Unavailable Unav Stephani Diaz MD Primary Care Provider Shruti Vergara RN Unavailable Unavailable Bianka Loera CNP Primary Care Provider Desiree Patrick MD Primary Care P rovider Encounter Details Date Type Department Care Team (Late st Contact Info) Description 02/06/2019 HIM Audio Visual Facilities Engineer [facility] Heart & Vascular [address] [address] Rakesh Williamson Chi, MD Social History Tobacco [...] ADULT WITH OR WITHOUT CONTRAST PERFORMED BY: [facility] [place] SITE: [facility] [place] INTERPRETED BY: [facility], [place] TRANSTHORACIC ECHOCARDIOGRAM REPORT REFERRING DIAGNOSIS: Sleep [...] function. Note: This study was performed by [facility] [place]. Only the interpretation was performed at the [facility] [place]. Electronically signed Rakesh Williamson MD Clerical Investigator , 06:42 A A felipa/Doc#: [id number] cc: Antoine Fitzpatrick MD Adult Normal Value [...] Blood pressure: 139/86 mmHg Previous study: 01/06/2017 Pack Changer: KRISTA documented in this encounter Plan of [...] - 02/06/2019 12:00 AM CDT PERFORMED BY: [facility], [place] SITE: [facility], [place] INTERPRETED BY: [facility], [place] TRANSTHORACIC ECHOCARDIOGRAM REPORT REFERRING DIAGNOSIS: Sleep [...] function. Note: This study was performed by [facility] al[facility]io [place]. Only theinterpretation was performed at the [facility]. Electronically signed Rakesh Williamson MD Clerical Investigator , 06:42 A A felipa/Doc#: [id number] cc: Antoine Fitzpatrick MD Adult Normal Value [...] Blood pressure: 139/86 mmHg Previous study: 01/06/2017 Pack Changer: KRISTA Antoine Fitzpatrick MD,PHD CAR ULTRASOU [place] documented in this encounter Visit Diagnoses Not on filedocumented in this encounter Care Teams Field Automobile Adjuster Relationship Specialty Start Date End Date Casey Berry II, DO PCP - General 11/22/06 08/17/19 Stephani Aleman MD PCP - General Family Medicine 2/7/20 3/8/21 Bianka Loera, CORN SHUCKER [address] [place] [phone] PCP - General Nurse Practitioner Family 09/17/20 712/31 Desiree Patrick MD [address] [place] [address] PCP - General Electrophysiology 02/23/22 03/09/22 Desiree Patrick MD [address] [place] [address] 08/09/17 Farrah Nicole APRN,COIN DEALER [address] [place] [address] 08/09/17 Bry Echevarria MD [facility] [place] [address] 08/09/17 Casey Berry II, DO 08/09/17 Shruti Vergara, RN RN Registered Nurse 08/27/20 documented as of this encounter Additional Source Comments PLEASE NOTE: Replies to this message will not be received.[facility] and [facility]
--- OUTSIDE RECORDS SUMMARY | 2024-03-09 15:35 | XMS_ITS | Clinical Summary ---
Author Organization [employer] Address [address] [place] [address] Care Team Providers Care Rn Surgical Pcu Name Role Phone Desiree Patrick MD Unavailable Farrah Nicole APRN,AIR PUMPER Unavailable Bry Echevarria MD Unavailable [phone] Jamal CARLISLE DO, Robert William Unavailable Unav [...] ipratropium (ATROVENT) 21 mcg (0.03 %) nasal [place], Non-AerosolIndicatio ns:PND (post-nasal drip) 2 Sprays by [...] 5 mg oral TabletIndications:Pa roxysmal atrial fibrillation (HCC),top steep tender (current) use of anticoagulants TAKE 1 [...] 11/09/2018 Muscle tightness 11/09/2018 Bilateral foot-drop 11/09/2018 penitentiary (current) use of anticoagulants 2018 Encounter for monitoring dofetilide therapy 06/11 Atrial fibrillation (HCC) 06/21/2017 Essential hypertension 10/21/2016 Thoracic ascending aortic aneurysm 06/11/2016 Overview: 4.2 x 4.[address] [facility] Atrial flutter 11/15/2015 Esophageal [...] Influenza Vac, H1N1 07/23/2009 Influenza Vac, IM, Quadrival ent Preserv Free, (>6 months) 03/25/2021,03/12/2020,07/02/2015 Influenza Vac, IM, Quadrival ent, Preserv Free, Split Virus (Fluzone 65+) 05/10/2019,04/26/2018,03/30/2017,2015,05/28/2014 Influenza Vac, IM, Trivalent (>3 Yrs) ,06/15/2012,03/26/2011,2009,07/23/2009,06/30/2008,05/09/2007,1 [...] week 04/04/2021 How often do you attend [facility] or restorationist services? More than 4 times per year 04/04/2021 Do you belong to any clubs o r organizations such as mu-ism groups, unions, fraternal or athletic groups, or [...] heating? Not hard at all 04/04/2021 [facility] of Occupat ional Health - Occupational Stress [...] place to sleep or slept in a [place] [facility] [place] facility (including now)? No 04/04/2021 Depression (PHQ-9) Answer Date Recorded Last PHQ-9 Score Not on file 08/27/2022 Thoughts of self harm Not at all 08/27/2022 Education Answer Date Recorded What is the highest level of school you have completed or the highest degree you have received? Master's degree (e.g., MA, MS, Mirlande, MEd, COMPUTING CONSULTANT, ROHIT) 08/19/2020 Sex and Gender Information [...] HEPATITIS C AB Routine 08/26/2021 10:09 AM CAMPAIGN DEVELOPER Need for hepatitis C screening test COLONOSCOPY Routine 02/27/2020 8:05 AM CDT LIPID PANEL Routine 08/18/2019 9:23 AM CAMPAIGN DEVELOPER Screening for lipid disorders from Last 3 Months or Most Recently Relevant to Health Maintenance Results * (ABNORMAL) HEPATITIS C AB (08/26/2021 10:09 AM CAMPAIGN DEVELOPER) HCV Ab Reactive( A) Nonreactive 08/26/2021 7:41 PM CAMPAIGN DEVELOPER [facility] Comment: This is a reportable disease sent to the [place] [facility]. 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 State of associated disease not determined. Blood VENOUS BLOOD / Unknown Venipuncture / Unknown 08/26/2021 10:09 AM CAMPAIGN DEVELOPER 08/26/2021 10:09 AM CAMPAIGN DEVELOPER Bianka Toussaint Edlnoah BUSINESS ACCOUNT SPECIALIST LAB SEROLOGY ORDERAB LES [facility] [address] [place] [address] * COLONOSCOPY (02/27/2020 8:05 AM CDT) 02/27/2020 8:05 AM CDT Narrative [facility] - 02/27/2020 9:20 AM CDT [facility] Patient Name: Rohan Carroll Procedure Date: 02/27/2020 8:05 AM Date of : 1945 Admit Type: Outpatient Age: 74 Room: [facility] Gender: Male Note Status: Finalized Attending [...] of the bowel preparation was ?excellent. The [id number] was introduced through the anus ?and advanced [...] 8:05 AM Stephani Aleman MD GI PROCEDURES [employer] ENDO * (ABNORMAL) LIPID PANEL (08/18/2019 9:23 AM CAMPAIGN DEVELOPER) Cholesterol 96 0 - 200 mg/dL 08/18/2019 7:32 PM CAMPAIGN DEVELOPER [facility] Triglycerides 65 30 - 150 mg/dL 08/18/2019 7:32 PM CAMPAIGN DEVELOPER [facility] Cholesterol, LDL (Calculated) 45 0 - 159 mg/dL 08/18/2019 7:32 PM [facility] [employer] [facility] Cholesterol, HDL 38(L) >40 mg/dL 08/18/19 20 7:32 PM [facility] [employer] [facility] Cholesterol, vLDL 13 mg/dL 020 7:32 PM [facility] [employer] [facility] Blood VENOUS BLOOD SPECIMEN / Unknown Venipuncture / Unknown 08/18/2019 9:23 AM CAMPAIGN DEVELOPER 08/18/2019 9:23 AM CAMPAIGN DEVELOPER Stephani Aleman MD LAB CHEMISTRY [facility] [address] [place] [address] from Last 3 Months or Most Recently Relevant to Health Maintenance Rohan Carroll Personal/Family Self 1945 [facility] [employer] [address] [place] [address] Rohan Carroll Personal/Family Self 1945 [facility] [employer] [address] [place] [address] Rohan Carroll Personal/Family Self 1945 [facility] [employer] [address] [place] [address] Rohan Carroll Personal/Family Self 1945 [facility] [employer] [address] [place] [address] Rohan Carroll Personal/Family Self 1945 [facility] [employer] [address] [place] [address] Advance Directives Documents on File Type Date Recorded Patient Surgical Services Coordinator Expl anation Advanced Directives 08/23/2014 3:05 PM [facility] * Full Code (Latest Code Status on File) Date Activated Date Inactivated Comments 06/21/2017 3:50 PM 06/24/2017 4:37 PM * Full Code Date Activated Date Inactivated Comments 10/19/2016 4:45 PM 10/20/2016 8:57 PM * Full Code Date Activated Date Inactivated Comments 11/15/2015 11:16 PM 11/16/2015 11:46 AM Care Teams Rn Surgical Pcu Relationship Specialty Start Date End Date Desiree Patrick MD [address] [facility] [place] [address] 08/09/17 Farrah Nicole APRN,[facility] [address] [place] [address] 08/09/17 Bry Echevarria MD [address] [place] [address] [place] [address] 08/09/17 Casey Berry II, DO 08/09/17 Shruti Vergara RN RN Registered Nurse 08/27/20 Additional Source Comments PLEASE NOTE: Replies to this message will not be received.[facility] and [facility]
--- OUTSIDE RECORDS SUMMARY | 2024-03-09 15:35 | XMS_ITS ---
Author Organization [employer] Address [address] [place] [address] Care Team Providers Care Customer Quality Specialist Name Role Phone Desiree Patrick MD Unavailable Farrah Nicole APRN,CENTRAL OFFICE ASSOCIATE Unavailable [phone] Bry Echevarria MD Unavailable Jamal CARLISLE DO, [...] 11/09/2018 Muscle tightness 11/09/2018 Bilateral foot-drop 11/09/2018 care home (current) use of anticoagulants 2018 Encounter for monitoring dofetilide therapy 06/11 Atrial fibrillation (HCC) 06/21/2017 Essential hypertension 10/21/2016 Thoracic ascending aortic aneurysm 06/11/2016 Overview: 4.2 x 4.[address] [facility] Atrial flutter 11/15/2015 Esophageal dysmotility Overview: uses Reglan on a PRN basis Hearing loss Overview: wears hearing aids Hepatitis C antibody test positive Overview: negative quant RNA Current Oncology Plans No current plan information found. Past Plans No past plan information found. Radiation Treatments * No radiation treatments are documented for this patient in [facility]. Treatments may have been administered in [...]
--- OUTSIDE RECORDS SUMMARY | 2024-03-09 15:35 | XMS_ITS | Clinical Summary ---
Author Organization [facility] Address [place], [place] [address] Care Team Providers Care Structural Draftsman Name Role Phone Marli Sauceda MD Primary Care Provider + Allergies Active Allergy Reactions Criticality Noted Date Comments Penicillins Hives,Rash Medium 02/03/2022 Sulfa (Sulfonamide Antibiotics) Rash Medium /12/2015 Medications Medication Sig Dispensed Refills Start Date End Date Status carbidopa-levodopa , 25-100 mg, (SINEMET 25-100) 25-100 mg tablet [...] daily. 11/04/2021 Active dofetilide (TIKOSYN) 250 mcg capsuleIndications :Paroxysmal atrial fibrillation (HC) Take 1 Capsule (250 mcg) by mouth every 12 hours. Pt is due for labs/EKG February 2024 180 Capsule 03/06/2024 Active dofetilide (TIKOSYN) 250 mcg capsuleIndications :Paroxysmal atrial fibrillation (HC) Take 1 Capsule (250 mcg) by mouth every 12 hours. Pt is due for labs/EKG February 2024 180 Capsule 11/30/2023 4 Discontinue d(Reorder (E-cancel not sent)) Active Problems Problem Noted Date Diagnosed Date Ascending aorta dilatation 04/24/2022 PAF (paroxysmal atrial fibrillation) 04/24/2022 Parkinson disease 04/24/2022 Encounters Date Type Department Care Team Description 02/16/2024 1:00 PM CDT Ancillary Procedure [facility] [address] [place] [address] 02/16/2024 Travel 02/15/2024 Telephone [facility] [address] [facility] [address] [place] [address] Kiya Gomes RN Medication Management (Tikosyn/) 01/19/2024 Orders Only [facility] [address] [facility] [address] [place] [address] Fabio Goldstein MD <No scans attached> from Last 3 Months Social History Tobacco [...] Care Team (Late st Contact Info) Description 04/13/2024 9:20 AM CDT Office Visit [facility] [address] [place] [address] Vic Galvan MD [address] [place] [address] Health Maintenance Due Date Last Done Comments [...] Procedure Name Priority Date/Time Associated Diagnosis Comments ECHO TTE COMPLETE WO CONTRAST Routine 02/16/2024 1:41 PM CDT Atrial fibrillation, unspecified type (HC) from Last 3 Months Results * ECHO TTE COMPLETE WO CONTRAST (02/16/2024 1:41 PM CDT) AORTIC VALVE MEAN PG 13 mmHg EJECTION FRACTION 59 % PEAK TR VELOCITY 2.1 m/s LVEDD 4.5 cm EJECTION FRACTION 60 - 65% Anatomical Region Laterality Modality Ultrasound 02/16/2024 1:17 PM CDT Narrative 02/16/2024 3:08 PM CDT ECHOCARDIOGRAM CRISTIAN BLEDSOE ? Accession#: ?? [id number] : ?1945 78 years Study Date: ?? 02/16/2024 1:17:37 PM Gender: M ?BP: ? 116/68 mmHg Height: 185.00 cm ?BSA: ?2.10 m? ? ? Weight: 86.00 kg ? Tech: ? MSR ? Referring MD: SHYANN GRIGGS Site: ? [facility] Reading Location: Mobile OP Patient Location: Outpatient. Procedure: 2D, Color Doppler and Spectral Doppler. Indication for study: Atrial fibrillation, unspecified type Cardiac Rhythm: Regular.Study quality: Fair. Final Impressions: 1. Normal LV size, moderately increased wall thickness, normal global systolic function with an estimated EF of 60 - 65%. 2. Right ventricular cavity size is normal, global systolic RV function is normal. 3. The aortic valve is trileaflet and sclerotic, mild stenosis and mild regurgitation. The aortic valve peak velocity is 2.3 m/s, the peak gradient is 21 mmHg, and the mean gradient is 13 mmHg. The aortic valve area is 1.95 cm? ? ? with a dimensionless index of 0.49. The stroke volume index is 37.4 ml/m? ? ?. 4. The mitral valve is sclerotic, trace mitral regurgitation. 5. Mildly enlarged left atrium. 6. 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 7. The ascending aorta is dilated with a maximal diameter of 4.2 cm. Chamber Sizes and Function Normal left ventricular size, moderately increased wall thickness, normal global systolic function with an estimated EF of 60 - 65%. Left atrial size is mildly enlarged. Right ventricular cavity size is normal, global systolic RV function is normal. The right atrium is normal. The pulmonary artery is not well visualized. The sinus of Valsalva is dilated. The ascending aorta is dilated. Valves, RV Pressures and Diastolic Function The aortic valve is trileaflet and sclerotic, mild stenosis and mild regurgitation. The mitral valve is sclerotic, trace mitral regurgitation. Mitral annular calcification is present. Spectral Doppler shows Grade 1 pattern of LV diastolic filling. The tricuspid valve is normal in structure. Tricuspid regurgitation is trace regurgitation. The tricuspid regurgitant velocity is 2.0 m/s, the estimated right ventricular systolic pressure is 17 mmHg plus right atrial pressure. The pulmonic valve is not well visualized. No pulmonary regurgitation. Masses, Effusion, Shunts There is no pericardial effusion. The inferior vena cava is not well visualized, respiratory size variation not well visualized. No left to right shunting was detected by limited color flow Doppler interrogation of the interatrial septum. MEASUREMENTS AND CALCULATIONS 2-D Measurements and LV Function: LVID (d) 4.5 cm LV FS% (2D) ?? 36 % LVID (s) 2.9 cm LVOT diameter 2.3 cm IVS (d) ??1.5 cm HR ?73 bpm LVPW (d) 1.2 cm LA Vol index ??36 ml/m2 Ao Sinus 4.9 cm RV Max 4C (d) 4.6 cm Asc Ao ?? 4.2 cm Diastology: Mitral ?Tissue Doppler E Peak 0.4 m/s ??e', Septum ? 0.04 m/s A Peak 0.7 m/s ??e', Lateral ?0.05 m/s E/A ?0.5 ?E/e' Average ?? 8.80 DT ? 216 msec Aortic Valve: Vmax ? 2.3 m/s ??KAROLINA (V) ?? 1.89 cm? AI P 1/2 1079 msec VTI ?0.40 m ?? KAROLINA (I) ?? 1.95 cm? ? ? LVOT V max 1.1 m/s ??Max PG ?21 mmHg LVOT VTI ?? 0.20 m ?? Mean PG ?? 13 mmHg SV ? 79 ml ?Dim Index 0.49 SV index ?? 37 ml/m? ? ? CO ?5.7 l/min ?CI ?2.7 l/min/m? ? ? Mitral Valve: MVA ?3.5 cm? ? ? MV P 1/2 63 msec Tricuspid Valve and estimated PA pressures: TR Vmax 2.0 m/s TAPSE 2.1 cm TR maxG 17 mmHg . This study was interpreted by an [facility] accredited facility. CC: [facility]. ??Final ?? Procedure Note Kofi Connolly MD - 02/16/2024 ECHOCARDIOGRAM CRISTIAN BLEDSOE : 1945 78 years Study Date: 02/16/2024 1:17:37 PM Gender: M BP: 116/68 mmHg Height: 185.00 cm BSA: 2.10 m? ? ? Weight: 86.00 kg Tech: JORDAN Referring MD: SHYANN GRIGGS Site: [facility] Reading Location: Mobile OP Patient Location: Outpatient. Procedure: 2D, Color Doppler and Spectral Doppler. Indication for study: Atrial fibrillation, unspecified type Cardiac Rhythm: Regular.Study quality: Fair. Final Impressions: 1. Normal LV size, moderately increased wall thickness, normal globalsystolic function with an estimated EF of 60 - 65%. 2. Right ventricular cavity size is normal, global systolic RV functionis normal. 3. The aortic valve is trileaflet and sclerotic, mild stenosis and mildregurgitation. The aortic valve peak velocity is 2.3 m/s, the peakgradient is 21 mmHg, and the mean gradient is 13 mmHg. The aortic valvearea is 1.95 cm? ? ? with a dimensionless index of 0.49. The stroke volumeindex is 37.4 ml/m? ? ?. 4. The mitral valve is sclerotic, trace mitral regurgitation. 5. Mildly enlarged left atrium. 6. 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 7. The ascending aorta is dilated with a maximal diameter of 4.2 cm. Chamber Sizes and Function Normal left ventricular size, moderately increased wall thickness, normalglobal systolic function with an estimated EF of 60 - 65%. Left atrialsize is mildly enlarged. Right ventricular cavity size is normal, globalsystolic RV function is normal. The right atrium is normal. The pulmonaryartery is not well visualized. The sinus of Valsalva is dilated. Theascending aorta is dilated. Valves, RV Pressures and Diastolic Function The aortic valve is trileaflet and sclerotic, mild stenosis and mildregurgitation. The mitral valve is sclerotic, trace mitral regurgitation.Mitral annular calcification is present. Spectral Doppler shows Grade 1pattern of LV diastolic filling. The tricuspid valve is normal instructure. Tricuspid regurgitation is trace regurgitation. The tricuspidregurgitant velocity is 2.0 m/s, the estimated right ventricular systolicpressure is 17 mmHg plus right atrial pressure. The pulmonic valve is notwell visualized. No pulmonary regurgitation. Masses, Effusion, Shunts There is no pericardial effusion. The inferior vena cava is not wellvisualized, respiratory size variation not well visualized. No left toright shunting was detected by limited color flow Doppler interrogation ofthe interatrial septum. MEASUREMENTS AND CALCULATIONS 2-D Measurements and LV Function: LVID (d) 4.5 cm LV FS% (2D) 36 % LVID (s) 2.9 cm LVOT diameter 2.3 cm IVS (d) 1.5 cm HR 73 bpm LVPW (d) 1.2 cm LA Vol index 36 ml/m2 Ao Sinus 4.9 cm RV Max 4C (d) 4.6 cm Asc Ao 4.2 cm Diastology: Mitral Tissue Doppler E Peak 0.4 m/s e', Septum 0.04 m/s A Peak 0.7 m/s e', Lateral 0.05 m/s E/A 0.5 E/e' Average 8.80 DT 216 msec Aortic Valve: Vmax 2.3 m/s KAROLINA (V) 1.89 cm? ? ? AI P 1/2 1079 msec VTI 0.40 m KAROLINA (I) 1.95 cm? ? ? LVOT V max 1.1 m/s Max PG 21 mmHg LVOT VTI 0.20 m Mean PG 13 mmHg SV 79 ml Dim Index 0.49 SV index 37 ml/m? ? ? CO 5.7 l/min CI 2.7 l/min/m? ? ? Mitral Valve: MVA 3.5 cm? ? ? MV P 1/2 63 msec Tricuspid Valve and estimated PA pressures: TR Vmax 2.0 m/s TAPSE 2.1 cm TR maxG 17 mmHg . This study was interpreted by an [facility] accredited facility. CC: [facility] (med records) [facility]. Final Shyann Griggs MD ECHO ORD from Last 3 Months Care Teams Structural Draftsman Relationship Specialty Start Date End Date Marli Sauceda MD [address] [facility] [place] [address] PCP - General Family Practice 03/13/22
--- OUTSIDE RECORDS SUMMARY | 2024-03-09 15:35 | XMS_ITS | Referral Summary ---
Author Organization [employer] Address [address] [place] [address] Care Team Providers Care Construction Mgr Name Role Phone Desiree Patrick MD Unavailable Farrah Nicole APRN,APPLICATION DEVELOPER Unavailable Bry Echevarria MD Unavailable [phone] Jamal CARLISLE DO, Robert William Unavailable Unav [...] ipratropium (ATROVENT) 21 mcg (0.03 %) nasal [place], Non-AerosolIndicatio ns:PND (post-nasal drip) 2 Sprays by [...] 5 mg oral TabletIndications:Pa roxysmal atrial fibrillation (HCC),risk control director (current) use of anticoagulants TAKE 1 TABLET [...] 11/09/2018 Muscle tightness 11/09/2018 Bilateral foot-drop 11/09/2018 detention (current) use of anticoagulants 2018 Encounter for monitoring dofetilide therapy 06/11 Atrial fibrillation (HCC) 06/21/2017 Essential hypertension 10/21/2016 Thoracic ascending aortic aneurysm 06/11/2016 Overview: 4.[address] x [address] [facility] [address] Atrial flutter 11/15/2015 Esophageal dysmotility [...] and heating? Not hard at all 04/04/2021 [facility] - Occupational [...] place to sleep or slept in a skilled nursing (including now)? No 04/04/2021 Depression (PHQ-9) Answer Date Recorded Last PHQ-9 Score Not on file 08/27/2022 Thoughts of self harm Not at all 08/27/2022 Education Answer Date Recorded What is the highest level of school you have completed or the highest degree you have received? Master's degree (e.g., MA, MS, [place], MEd, JUNIOR QA ANALYST, ROHIT) 08/19/2020 Sex and Gender Information Value [...] HEPATITIS C AB Routine 08/26/2021 10:09 AM LIBRARY ASSISTANT Need for hepatitis C screening test COLONOSCOPY Routine 02/27/2020 8:05 AM CDT LIPID PANEL Routine 08/18/2019 9:23 AM LIBRARY ASSISTANT Screening for lipid disorders from Last 3 Months or Most Recently Relevant to Health Maintenance Results * (ABNORMAL) HEPATITIS C AB (08/26/2021 10:09 AM LIBRARY ASSISTANT) HCV Ab Reactive( A) Nonreactive 08/26/2021 7:41 PM LIBRARY ASSISTANT [facility] Comment: This is a reportable disease sent to the [facility]. 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 State of associated disease not determined. Blood VENOUS BLOOD / Unknown Venipuncture / Unknown 08/26/2021 10:09 AM LIBRARY ASSISTANT 08/26/2021 10:09 AM LIBRARY ASSISTANT Bianka Loera [facility] SER[facility]Y ORDERAB LES Performing Organization Address [facility] Co de Phone Number [facility] [address] [place] [address] * COLONOSCOPY (02/27/2020 8:05 AM CDT) 02/27/2020 8:05 AM CDT Narrative [facility] - 02/27/2020 9:20 AM CDT [facility] Patient Name: Rohan Carroll Procedure Date: 02/27/2020 8:05 AM Date of : 1945 Admit Type: Outpatient Age: 74 Room: [facility] Gender: Male Note Status: Finalized [...] of the bowel preparation was ?excellent. The [id number] was introduced through the anus ?and advanced [...] 8:05 AM Stephani Aleman MD GI PROCEDURES [facility] END[facility] * (ABNORMAL) LIPID PANEL (08/18/2019 9:23 AM LIBRARY ASSISTANT) Cholesterol 96 0 - 200 mg/dL 08/18/2019 7:32 PM LIBRARY ASSISTANT [facility] Triglycerides 65 30 - 150 mg/dL 08/18/2019 7:32 PM LIBRARY ASSISTANT [facility] Cholesterol, LDL (Calculated) 45 0 - 159 mg/dL 08/18/2019 7:32 PM LIBRARY ASSISTANT [facility] Cholesterol, HDL 38(L) >40 mg/dL 08/18/19 20 7:32 PM LIBRARY ASSISTANT [facility] Cholesterol, vLDL 13 mg/dL 020 7:32 PM [facility] Blood VENOUS BLOOD SPECIMEN / Unknown Venipuncture / Unknown 08/18/2019 9:23 AM LIBRARY ASSISTANT 08/18/2019 9:23 AM LIBRARY ASSISTANT Stephani Aleman MD LAB CHEMISTRY ORDERA JOSH [facility] [employer] [facility] [address] [place], [place] [id number] from Last 3 Months or Most Recently Relevant to Health Maintenance Advance Directives Documents on File Type Date Recorded Patient Supervisor Polishing Expl anation Advanced Directives 08/23/2014 3:05 PM [facility] * Full Code (Latest Code Status on File) Date Activated Date Inactivated Comments 06/21/2017 3:50 PM 06/24/2017 4:37 PM * Full Code Date Activated Date Inactivated Comments 10/19/2016 4:45 PM 10/20/2016 8:57 PM * Full Code Date Activated Date Inactivated Comments 11/15/2015 11:16 PM 11/16/2015 11:46 AM Care Teams Construction Mgr Relationship Specialty Start Date End Date Desiree Patrick MD [address] [place] [phone] 08/09/17 Farrah Nicole APRN,APPLICATION DEVELOPER [address] [place] [phone] 08/09/17 Bry Echevarria MD [address] [place] [phone] 08/09/17 Casey Berry II, DO 08/09/17 Shruti Vergara, RN RN Registered Nurse 08/27/20 Additional Source Comments PLEASE NOTE: Replies to this message will not be received.[facility]
--- OUTSIDE RECORDS SUMMARY | 2024-03-09 15:35 | XMS_ITS | Encounter Summary ---
Author Organization [employer] Address [address] [place] [address] Care Team Providers Care Lacquer Machine Feeder Name Role Phone Jamal CARLISLE DO, Robert William Primary Care Provide r Unavailable Desiree Patrick MD Unavailable Farrah Nicole APRN,SERVICE ADVISOR Unavailable [phone] Bry Echevarria MD Unavailable Jamal CARLISLE DO, Robert William Unavailable Unav Stephani Diaz MD Primary Care Provider [phone] Shruti Vergara RN Unavailable Unavailable Bianka Loera CNP Primary Care Provider Desiree Patrick MD Primary Care P rovider Encounter Details Date Type Department Care Team (Late st Contact Info) Description 09/08/2018 Historical Conversion [facility] Family Medicine [address] [place] [phone] Casey Berry II, DO Social History Tobacco [...] DAILY CBC; Status:Resulted - Requires Verification; Done: [id number] 09:12AM Comprehensive Metabolic Panel; Status:Resulted - Requires Verification; Done: [id number] 09:12AM Lipid Panel; Status:Resulted - Requires Verification; Done: 08Sep2018 09:12AM Vitamin D Total [facility]; Status:Resulted - Requires Verification; Done: 08Sep2018 09:12AM Ataxia Drawing Fee; Status:Complete; Done: 08Sep2018 Balance Center Consult Consult Only Evaluation and Treatment Status: Hold For - Required information Requested for: [id number] Phone Number to Contact Patient: : See chart to Provider, Practice or Agency: : [facility] Folate; Status:Resulted - Requires Verification; Done: [...] 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 HEALTH CARE MAINTENANCE: Colonoscopy in 2009, due in 2019. Current Meds 1. Dofetilide 250 MCG Oral Capsule; TAKE 1 CAPSULE EVERY 12 HOURS; Last Rx:[id number] Ordered 2. Jantoven 5 MG Oral Tablet; TAKE 1 1/2 TABLET BY MOUTH ON WEDNESDAYS, AND 1 TABLET BY MOUTH ALL OTHER DAYS OF THE WEEK DIRECTED; Therapy: 13Apr2018 to (Evaluate:28Sep2018) Requested for: 93Xpi1948; Last Rx:[id number] Ordered 3. Lisinopril 10 MG Oral Tablet; TAKE ONE TABLET DAILY; Therapy: 18Oct2017 to Recorded 4. Metoclopramide HCl - 5 MG Oral Tablet; TAKE 1 TABLET BY MOUTH THREE TIMES DAILY WITH MEALS NEEDED; Therapy: 10Sep2014 to (Evaluate:65Opy2536) Requested for: 30Xyg3680; Last Rx:[id number] Ordered 5. Oxybutynin Chloride ER 10 MG Oral Tablet Extended Release 24 Hour; TAKE 1 TABLET DAILY; Therapy: 99Pnu6972 to (Evaluate:50Gml2088) Requested for: 40Dea9313; Last Rx:[id number] Ordered 6. Polyethylene Glycol 3350 Oral Powder; take 17 grams in 8 ounces of fluid once daily as needed for constipation; Therapy: 74Sst1601 to (Evaluate:27May2018); Last Rx:[id number] Ordered 7. Sildenafil Citrate 100 MG Oral Tablet; Take 1/2-1 tab 1 hour before sexual activity; Therapy: 35Llm6158 to (Last Rx:[id number]) Requested for: 44Wfb4951 Ordered 8. Triamcinolone Acetonide 0.1 % External Lotion; APPLY 2-3 TIMES DAILY TO AFFECTED AREA(S); Therapy: 51Gle8591 to (Last Rx:[id number]) Requested for: 90Srx8532 Ordered Allergies 1. Penicillins 2. Sulfa Drugs [...] Prostate firm, no masses, nontender. Results/Data CBC [id number] 09:12AM Jamal Casey FASTING Test Name Result [...] 0.9 L 1.0-4.7 Vitamin D Total [facility] 65Vmx9558 09:12 Casey Berry Test Name Result Flag Reference Vitamin D Total - [facility] 20.9 ng/ml L 30-100 Deficiency <10ng/mL Insufficiency 10-29 ng/mL Sufficiency 30-100 ng/mL Possible Toxicity >100 ng/mL TSH [id number] 09:12 Casey Berry FASTING Test Name Result Flag Reference TSH 1.670 uIU/ml 0.30-4.70 Vitamin B12 08Sep2018 09:12AM Casey Berry Test Name Result Flag Reference Vitamin B12 382 pg/ml 200-1000 Folate 32Uig4027 09:12AM Casey Berry Test Name Result Flag Reference Folate >20.0 ng/ml H 6.6-19.9 Signatures Casey Berry II, D.Veena/jaj-28 REVISED NOTE 09/12/2018/naomie Electronically signed by : Casey Berry DO; Sep 09 2018 11:14AM MEDICATION AIDE Electronically signed by : Casey Berry DO; Sep 12 2018 9:09AM MEDICATION AIDE documented in this encounter Plan of Treatment Not on file documented as of this encounter Visit Diagnoses Not on filedocumented in this encounter Care Teams Lacquer Machine Feeder Relationship Specialty Start Date End Date Casey Berry II, DO PCP - General 11/22/06 08/17/19 Stephani Aleman MD PCP - General Family Medicine 08/18/19 09/16/20 Bianka Loera PIN DRAFTING MACHINE TENDER [address] [place] [phone] PCP - General Nurse Practitioner Family 09/17/20 712/31 Desiree Patrick MD [address] [place] [address] PCP - General Electrophysiology 02/23/22 03/09/22 Desiree Patrick MD [address] [place] [address] 08/09/17 Farrah Nicole APRN,SERVICE ADVISOR [address] [place] [address] 08/09/17 Bry Echevarria MD [facility] [place] [address] 08/09/17 Casey Berry II, DO 08/09/17 Shruti Vergara RN RN Registered Nurse 08/27/20 documented as of this encounter Additional Source Comments PLEASE NOTE: Replies to this message will not be received.[facility]
--- OUTSIDE RECORDS SUMMARY | 2024-03-09 15:36 | XMS_ITS | Encounter Summary ---
Author Organization [employer] Address [address] [place] [address] Care Team Providers Care Fiberglass Tube Molder Name Role Phone Jamal CARLISLE DO, Robert William Primary Care Provide r Unavailable Desiree Patrick MD Unavailable Farrah Nicole APRN,BUSINESS PROCESS COORDINATOR Unavailable Bry Echevarria MD Unavailable Jamal CARLISLE DO, Robert William Unavailable Unav Stephani Diaz MD Primary Care Provider [phone] Shruti Vergara RN Unavailable Unavailable Bianka Loera CNP Primary Care Provider Desiree Patrick MD Primary Care P rovider Encounter Details Date Type Department Care Team (Late st Contact Info) Description 04/06/2017 Historical Conversion [facility] Family Medicine [address] [place] [address] Casey Berry II, DO Social History Tobacco [...] on filedocumented in this encounter Care Teams Fiberglass Tube Molder Relationship Specialty Start Date End Date Casey Berry II, DO PCP - General 11/22/06 08/17/19 Stephani Aleman MD PCP - General Family Medicine 08/18/19 09/16/20 Bianka Loera CNP [address] [facility] [address] [place] [phone] PCP - General Nurse Practitioner Family 09/17/2001/10 [place] [address] [place] [phone] PCP - General Electrophysiology 02/23/22 03/09/22 Desiree Patrick MD [address] [place] [address] 08/09/17 Farrah Nicole APRN,BUSINESS PROCESS COORDINATOR [address] [place] [address] 08/09/17 Bry Echevarria MD [address] [place] [address] 08/09/17 Casey Berry II, DO 08/09/17 Shruti Vergara RN RN Registered Nurse 08/27/20 documented as of this encounter Additional Source Comments PLEASE NOTE: Replies to this message will not be received.[facility] and [facility]
--- OUTSIDE RECORDS SUMMARY | 2024-03-09 15:36 | XMS_ITS | Encounter Summary ---
Author Organization [employer] Address [address] [place] [address] Care Team Providers Care Dimensional Integration Engineer Name Role Phone Jamal CARLISLE DO, Robert William Primary Care Provide r Unavailable Desiree Patrick MD Unavailable Farrah Nicole APRN,TILE CLASSIFIER Unavailable Bry Echevarria MD Unavailable Jamal CARLISLE DO, Robert William Unavailable Unav Stephani Diaz MD Primary Care Provider Shruti Vergara RN Unavailable Unavailable Bianka Loera CNP Primary Care Provider [phone] Desiree Patrick MD Primary Care P rovider Encounter Details Date Type Department Care Team (Late st Contact Info) Description 06/13/2018 Historical Conversion [facility] Family [facility] [address] [facility] [address] Bry Echevarria MD [address] [place] [address] Social History Tobacco Use Types [...] Comments Blood Pressure 120/78 06/13/2018 12:00 AM PCTS Pulse - - Temperature - - Respiratory Rate - - Oxygen Saturation - - Inhaled Oxygen Concentration - - Weight 93.8 kg (206 lb 12.7 oz) 018 12:00 AM PCTS Height - - Body Mass Index 27.29 05/18/2018 8:54 AM PCTS documented in this encounter Functional Status Functional [...] on filedocumented in this encounter Care Teams Dimensional Integration Engineer Relationship Specialty Start Date End Date Casey Berry II, DO PCP - General 11/22/06 08/17/19 Stephani Aleman MD PCP - General Family Medicine 08/18/19 09/16/20 Bianka Loera CNP [address] [place] [address] 2 [place] [address] PCP - General Nurse Practitioner Family 09/17/2001/10 Desiree Patrick MD [address] [place] [address] PCP - General Electrophysiology 02/23/22 03/09/22 Desiree Patrick MD [address] [place] [address] 08/09/17 Farrah Nicole APRN,TILE CLASSIFIER [address] [place] [address] 08/09/17 Bry Echevarria MD [address] [place] [address] 08/09/17 Casey Berry II, DO 08/09/17 Shruti Vergara RN RN Registered Nurse 08/27/20 documented as of this encounter Additional Source Comments PLEASE NOTE: Replies to this message will not be received.[facility] and [facility]
--- OUTSIDE RECORDS SUMMARY | 2024-03-09 15:36 | XMS_ITS | Encounter Summary ---
Author Organization [email or web address] Address [address] [place] [address] Care Team Providers Care Brown Stock Washer Name Role Phone Jamal CARLISLE DO, Robert William Primary Care Provide r Unavailable Desiree Patrick MD Unavailable Farrah Nicole APRN,LEAD LAYING AND GLUING MACHINE OPERATOR Unavailable Bry Echevarria MD Unavailable Jamal CARLISLE DO, Robert William Unavailable Unav Stephani Diaz MD Primary Care Provider Shruti Vergara RN Unavailable Unavailable Bianka Loera CNP Primary Care Provider Desiree Patrick MD Primary Care P rovider Encounter Details Date Type Department Care Team (Late st Contact Info) Description 03/30/2017 Historical Conversion [facility] Family Medicine [address] [facility] [place] [address] Desiree Rubi PAC [address] [place] [address] Social History Tobacco Use Types [...] on filedocumented in this encounter Care Teams Brown Stock Washer Relationship Specialty Start Date End Date Casey Berry II, DO PCP - General 11/22/06 08/17/19 Stephani Aleman MD PCP - General Family Medicine 08/18/19 09/16/20 Bianka Loera CNP [address] [place] [address] 2 [place] [address] PCP - General Nurse Practitioner Family 09/17/20 712/31 Desiree Patrick MD [address] [place] [address] PCP - General Electrophysiology 02/23/22 03/09/22 Desiree Patrick MD [address] [place] [address] 08/09/17 Farrah Nicole APRN,LEAD LAYING AND GLUING MACHINE OPERATOR [address] [place] [address] 08/09/17 Bry Echevarria MD [address] [place] [address] 08/09/17 Casey Berry II, DO 08/09/17 Shruti Vergara RN RN Registered Nurse 08/27/20 documented as of this encounter Additional Source Comments PLEASE NOTE: Replies to this message will not be received.[facility] and [facility]
--- OUTSIDE RECORDS SUMMARY | 2024-03-09 15:36 | XMS_ITS | Encounter Summary ---
Author Organization [employer] Address [address] [place] [address] Care Team Providers Care Marketing Professor Name Role Phone Jamal CARLISLE DO, Robert William Primary Care Provide r Unavailable Desiree Patrick MD Unavailable Farrah Nicole APRN,MANAGER CHILD Unavailable Bry Echevarria MD Unavailable Jamal CARLISLE DO, Robert William Unavailable Unav Stephani Diaz MD Primary Care Provider Shruti Vergara RN Unavailable Unavailable Bianka Loera CNP Primary Care Provider Desiree Patrick MD Primary Care P rovider Encounter Details Date Type Department Care Team (Late st Contact Info) Description 09/07/2017 Historical Conversion [facility] Family Medicine [address] [place] [address] Casey Berry II, DO Social History Tobacco [...] Bilateral leg pain History of Present Illness Rvuolxl-pfs-yzve-old male who states that he was shoveling [...] TAKE 1 CAPSULE EVERY 12 HOURS; Last Rx:[id number] Ordered 2. Lisinopril 10 MG Oral Tablet; TAKE ONE TABLET DAILY; Therapy: 18Oct2017 to Recorded 3. Metoclopramide HCl - 5 MG Oral Tablet; TAKE 1 TABLET BY MOUTH THREE TIMES DAILY WITH MEALS NEEDED; Therapy: 10Sep2014 to (Evaluate:29Oct2017) Requested for: 97Hkt0771; Last Rx:[id number] Ordered 4. Polyethylene Glycol 3350 Oral Powder; take 17 grams in 8 ounces of fluid once daily as needed for constipation; Therapy: 10Ern9954 to (Evaluate:27May2018); Last Rx:[id number] Ordered 5. Triamcinolone Acetonide 0.1 % External Lotion; APPLY 2-3 TIMES DAILY TO AFFECTED AREA(S); Therapy: 06Emr1714 to (Last Rx:[id number]) Requested for: 39Xsb3120 Ordered 6. Warfarin Sodium 5 MG Oral Tablet; Take as directed by ACC; Therapy: 84Ypj8387 to (Evaluate:10Sep2018) Requested for: 15Sep2017 Recorded Allergies [...] Casey Berry DO; Oct 25 2017 10:02AM IT SALES REPRESENTATIVE documented in this encounter H&P Notes * [...] healthy by no longer smoking.; Status:Complete; Done: 43Myw9737 Reason For Visit Routine history and physical. [...] DAILY; Therapy: 14Apr2017 to (Evaluate:27May2018) Requested for: 09Dzw1707; Last Rx:[id number] Ordered 3. Dofetilide 250 MCG Oral Capsule; TAKE 1 CAPSULE EVERY 12 HOURS; Last Rx:[id number] Ordered 4. Metoclopramide HCl - 5 MG Oral Tablet; TAKE 1 TABLET BY MOUTH THREE TIMES DAILY WITH MEALS NEEDED; Therapy: 10Sep2014 to (Evaluate:29Oct2017) Requested for: 55Irp4705; Last Rx:[id number] Ordered 5. Metoprolol Tartrate 50 MG Oral Tablet; TAKE 1/2 TABLET TWICE DAILY; Therapy: (Recorded:[id number]) to Recorded 6. Polyethylene Glycol 3350 Oral Powder; take 17 grams in 8 ounces of fluid once daily as needed for constipation; Therapy: 01Jul2017 to (Evaluate:27May2018); Last Rx:[id number] Ordered 7. Warfarin Sodium 5 MG Oral Tablet; Take as directed by ACC; Therapy: 88Uks6392 to (Evaluate:28May2018) Requested for: 02Jun2017 Recorded Allergies 1. Penicillins 2. Sulfa Drugs PENICILLIN AND SULFA. Immunizations Prevnar in 2016. Pneumovax in 2009. Tetanus in 2013. Shingles in 2009. Vitals Recorded: 13Pxt3747 08:20AM Systolic 144 Diastolic 85 Heart Rate [...] II, D.OWilliam/jaj-01 Electronically signed by : Casey Brery DO; Sep 20 2017 7:51AM IT SALES REPRESENTATIVE documented in this encounter Plan of Treatment Not on file documented as of this encounter Visit Diagnoses Not on filedocumented in this encounter Care Teams Marketing Professor Relationship Specialty Start Date End Date Casey Berry II, DO PCP - General 11/22/06 08/17/19 Stephani Aleman MD PCP - General Family Medicine 08/18/19 09/16/20 Bianka Loera CNP [address] [place] [address] 2 [place] [phone] PCP - General Nurse Practitioner Family 09/17/2001/10 [place] [address] [place] [phone] PCP - General Electrophysiology 02/23/22 03/09/22 Desiree Patrick MD [address] [place] [address] 08/09/17 Farrah Nicole APRN,MANAGER CHILD [address] [place] [address] 08/09/17 Bry Echevarria MD [address] [place] [address] 08/09/17 Casey Berry II, DO 08/09/17 Shruti Vergara RN RN Registered Nurse 08/27/20 documented as of this encounter Additional Source Comments PLEASE NOTE: Replies to this message will not be received.[facility] and [facility]
--- OUTSIDE RECORDS SUMMARY | 2024-03-09 15:36 | XMS_ITS | Encounter Summary ---
Author Organization [employer] Address [address] [place] [address] Care Team Providers Care Frozen Meat Cutter Name Role Phone Jmaal CARLISLE DO, Robert William Primary Care Provide r Unavailable Desiree Patrick MD Unavailable Farrah Nicole APRN,HIDES INSPECTOR Unavailable [phone] Bry Echevarria MD Unavailable [phone] Jamal CARLISLE DO, Robert William Unavailable Unav Stephani Diaz MD Primary Care Provider Shruti Vergara RN Unavailable Unavailable Bianka Loera CNP Primary Care Provider Desiree Patrick MD Primary Care P rovider Encounter Details Date Type Department Care Team (Late st Contact Info) Description 06/23/[address] [facility] Family Medicine [address] [place] [id number] Moon Maloney MD Social History Tobacco Use [...] Comments Blood Pressure 120/62 06/23/2018 12:00 AM ACID CONDENSER Pulse - - Temperature - - Respiratory Rate - - Oxygen Saturation - - Inhaled Oxygen Concentration - - Weight 93.5 kg (206 lb 2.1 oz) 06/23/2018 12:00 AM ACID CONDENSER Height - - Body Mass Index 27.2 06/20/2018 8:23 AM ACID CONDENSER documented in this encounter Functional Status Functional [...] on filedocumented in this encounter Care Teams Frozen Meat Cutter Relationship Specialty Start Date End Date Casey Berry II, DO PCP - General 11/22/06 08/17/19 Stephani Aleman MD PCP - General Family Medicine 08/18/19 09/16/20 Bianka Loera CNP [address] [facility] 2 [place] [phone] PCP - General Nurse Practitioner Family 09/17/2001/10 [place] [address] [place] [phone] PCP - General Electrophysiology 02/23/22 03/09/22 Desiree Patrick MD [address] [place] [address] 08/09/17 Farrah Nicole APRN,HIDES INSPECTOR [address] [place] [address] 08/09/17 Bry Echevarria MD [address] [place] [address] 08/09/17 Casey Berry II, DO 08/09/17 Shruti Vergara RN RN Registered Nurse 08/27/20 documented as of this encounter Additional Source Comments PLEASE NOTE: Replies to this message will not be received.[facility] and [facility]
--- OUTSIDE RECORDS SUMMARY | 2024-03-09 15:36 | XMS_ITS | Encounter Summary ---
Author Organization [employer] Address [address] [place] [address] Care Team Providers Care Computer Network Engineer Name Role Phone Jamal CARLISLE DO, Robert William Primary Care Provide r Unavailable Desiree Patrick MD Unavailable Farrah Nicole APRN,PRESS WORKER HELPER Unavailable [phone] Bry Echevarria MD Unavailable Jamal CARLISLE DO, Robert William Unavailable Unav Stephani Diaz MD Primary Care Provider Shruti Vergara RN Unavailable Unavailable Bianka Loera CNP Primary Care Provider Desiree Patrick MD Primary Care P rovider Encounter Details Date Type Department Care Team (Late st Contact Info) Description 03/01/2018 Historical Conversion [facility] Family Medicine 101 [facility] [place] [address] Desiree Rubi PAC [address] [place] [address] Social History Tobacco Use [...] Body Mass Index 26.81 09/07/2017 12:00 AM SPECIAL TESTER documented in this encounter Functional Status Functional [...] CDT UROLOGY CRISTIAN BLEDSOE : 1945 HX: [id number] DOS: 03/01/2018 HISTORY OF PRESENT ILLNESS: This [...] the prostate involving 2%. He also had Birdseye 7 cancerat the left mid-prostate involving 5% [...] think he normally sees Farrah Jacobo APRN, PRESS WORKER HELPER, at the [facility], so we will try to reach [...] above. ASSESSMENT: 1. Adenocarcinoma of the prostate, Birdseye 7 disease, status post EBRT treatment. He [...] meantime we will check with Cardiology in [place] about the option of Viagra or Cialis [...] P.A.-C./jmf- 24 cc: Jose Winslow M.D./Radiation Oncology [facility] cc: Casey Berry D.O./[facility] cc: Moon Maloney M.D./[facility] Electronically signed by:Desiree Rubi PA-C Mar 04 2018 1:27PM SPECIAL TESTER documented in this encounter Plan of Treatment Not on file documented as of this encounter Visit Diagnoses Not on filedocumented in this encounter Care Teams Computer Network Engineer Relationship Specialty Start Date End Date Casey Berry II, DO PCP - General 11/22/06 08/17/19 Stephani Aleman MD PCP - General Family Medicine 08/18/19 09/16/20 Bianka Loera NATURAL RESOURCES MANAGER [address] [place] [address] PCP - General Nurse Practitioner Family 09/17/20 712/31 Desiree Patrick MD [address] [place] [address] PCP - General Electrophysiology 02/23/22 03/09/22 Desiree Patrick MD [address] [place] [address] 08/09/17 Farrah Nicole APRN,PRESS WORKER HELPER [address] [place] [address] 08/09/17 Bry Echevarria MD [facility] [place] [address] 08/09/17 Casey Berry II, DO 08/09/17 Shruti Vergara RN RN Registered Nurse 08/27/20 documented as of this encounter Additional Source Comments PLEASE NOTE: Replies to this message will not be received.[facility] and [facility]
--- OUTSIDE RECORDS SUMMARY | 2024-03-09 15:36 | XMS_ITS | Encounter Summary ---
Author Organization [employer] Address [address] [place] [address] Care Team Providers Care Photography Editor Name Role Phone Jamal CARLISLE DO, Robert William Primary Care Provide r Unavailable Desiree Patrick MD Unavailable Farrah Nicole APRN,NURSES EDUCATOR Unavailable Bry Echevarria MD Unavailable Jamal CARLISLE DO, Robert William Unavailable Unav Stephani Diaz MD Primary Care Provider [phone] Shruti Vergara RN Unavailable Unavailable Bianka Loera CNP Primary Care Provider Desiree Patrick MD Primary Care P rovider Encounter Details Date Type Department Care Team (Late st Contact Info) Description 09/07/2017 Historical Conversion [facility] Family Medicine [address] [place] [address] Casey Berry II, DO Social History Tobacco [...] Comments Blood Pressure 144/85 09/07/2017 12:00 AM KELLY MACHINE OPERATOR Pulse - - Temperature - - Respiratory Rate - - Oxygen Saturation - - Inhaled Oxygen Concentration - - Weight 94.3 kg (207 lb 14.3 oz) 018 12:00 AM KELLY MACHINE OPERATOR Height 185.5 cm (6' 1.03) 09/07/2017 1 2:00 AM KELLY MACHINE OPERATOR Body Mass Index 27.4 09/07/2017 12:00 AM KELLY MACHINE OPERATOR documented in this encounter Functional Status [...] on filedocumented in this encounter Care Teams Photography Editor Relationship Specialty Start Date End Date Casey Berry II, DO PCP - General 11/22/06 08/17/19 Stephani Aleman MD PCP - General Family Medicine 08/18/19 09/16/20 Bianka Loera CNP [address] [facility] [address] [place] [address] PCP - General Nurse Practitioner Family 09/17/2001/10 [place] [address] [place] [address] PCP - General Electrophysiology 02/23/22 03/09/22 Desiree Patrick MD [address] [place] [address] 08/09/17 Farrah Nicole APRN,NURSES EDUCATOR [address] [place] [address] 08/09/17 Bry Echevarria MD [address] [place] [address] [place] [address] 08/09/17 Casey Berry II, DO 08/09/17 Shruti Vergara RN RN Registered Nurse 08/27/20 documented as of this encounter Additional Source Comments PLEASE NOTE: Replies to this message will not be received.[facility] and [facility]
--- OUTSIDE RECORDS SUMMARY | 2024-03-09 15:36 | XMS_ITS | Encounter Summary ---
Author Organization [employer] Address [address] [place] [address] Care Team Providers Care Meter Record Clerk Name Role Phone Jamal CARLISLE DO, Robert William Primary Care Provide r Unavailable Desiree Patrick MD Unavailable Farrah Nicole APRN,MANAGER SUSTAINABILITY Unavailable Bry Echevarria MD Unavailable Jamal CARLISLE DO, Robert William Unavailable Unav Stephani Diaz MD Primary Care Provider Shruti Vergara RN Unavailable Unavailable Bianka Loera CNP Primary Care Provider Desiree Patrick MD Primary Care P rovider Encounter Details Date Type Department Care Team (Late st Contact Info) Description 08/31/2017 Historical Conversion [facility] Family Medicine [address] [facility] [place] [address] Desiree Rubi PAC [address] [place] [address] Social History Tobacco Use Types [...] Comments Blood Pressure 112/60 08/31/2017 12:00 AM PROTECTION ENGINEER Pulse - - Temperature - - Respiratory Rate - - Oxygen Saturation - - Inhaled Oxygen Concentration - - Weight 95.9 kg (211 lb 6.7 oz) 08/31/2017 12:00 AM PROTECTION ENGINEER Height - - Body Mass Index 27.89 07/27/2017 2:42 PM PROTECTION ENGINEER documented in this encounter Functional Status [...] on filedocumented in this encounter Care Teams Meter Record Clerk Relationship Specialty Start Date End Date Casey Berry II, DO PCP - General 11/22/06 08/17/19 Stephani Aleman MD PCP - General Family Medicine 08/18/19 09/16/20 Bianka Loera CNP [address] [place] [address] 2 [place] [address] PCP - General Nurse Practitioner Family 09/17/20 712/31 Desiree Patrick MD [address] [place] [address] PCP - General Electrophysiology 02/23/22 03/09/22 Desiree Patrick MD [address] [place] [address] 08/09/17 Farrah Nicole APRN,MANAGER SUSTAINABILITY [address] [place] [address] 08/09/17 Bry Echevarria MD [address] [place] [address] [place] [address] 08/09/17 Casey Berry II, DO 08/09/17 Shruti Vergara RN RN Registered Nurse 08/27/20 documented as of this encounter Additional Source Comments PLEASE NOTE: Replies to this message will not be received.[facility]
--- OUTSIDE RECORDS SUMMARY | 2024-03-09 15:36 | XMS_ITS | Encounter Summary ---
Author Organization [employer] Address [address] [place] [address] Care Team Providers Care Chemistry Quality Control Analyst Name Role Phone Jamal CARLISLE DO, Robert William Primary Care Provide r Unavailable Desiree Patrick MD Unavailable Farrah Nicole APRN,DELIVERY DIRECTOR Unavailable [phone] Bry Echevarria MD Unavailable [phone] Jamal CARLISLE DO, Robert William Unavailable Unav Stephnai Diaz MD Primary Care Provider Shruti Vergara RN Unavailable Unavailable Bianka Loera CNP Primary Care Provider Desiree Patrick MD Primary Care P rovider Encounter Details Date Type Department Care Team (Late st Contact Info) Description 06/13/2018 Historical Conversion [facility] Family [facility] [address] [facility] [address] Bry Echevarria MD [address] [place] [address] Social History Tobacco Use Types [...] AM CST CRISTIAN BLEDSOE : 1945 HX: [id number] DOS: 06/13/2018 SUBJECTIVE: Patient is a 72-year-old [...] Jose Winslow in Radiation Oncology at the [facility]. He has not recently had [...] Prostate cancer, status post treatment with radiation. Jackhorn to be under good control at this [...] later. Bry Echevarria M.D./ekg-6 cc: Yury Berry DO/[facility] Radha cc: Elder Maloney MD/[facility] Radha cc: Mare Rubi PA-C/[facility] Radha cc: Jose Winslow MD/[facility] Electronically signed by:Bry Echevarria M.D. Jun 16 2018 2:16PM AUTOMATIC DATA PROCESSING PLANNER documented in this encounter Plan of Treatment Not on file documented as of this encounter Visit Diagnoses Not on filedocumented in this encounter Care Teams Chemistry Quality Control Analyst Relationship Specialty Start Date End Date Casey Berry II, DO PCP - General 11/22/06 08/17/19 Stephani Aleman MD PCP - General Family Medicine 08/18/19 09/16/20 Bianka Loera FINANCIAL SYSTEMS MANAGER [address] [place] [phone] PCP - General Nurse Practitioner Family 09/17/2001/10 Desiree Patrick MD [address] [place] [address] PCP - General Electrophysiology 02/23/22 03/09/22 Desiree Patrick MD [address] [place] [address] 08/09/17 Farrah Nicole, CHIEF UNDERWRITER,DELIVERY DIRECTOR [address] [place] [address] 08/09/17 Bry Echevarria MD [address] [place] [place] [address] 08/09/17 Casey Berry II, DO 08/09/17 Shruti Vergara RN RN Registered Nurse 08/27/20 documented as of this encounter Additional Source Comments PLEASE NOTE: Replies to this message will not be received.[facility] and [facility]
--- OUTSIDE RECORDS SUMMARY | 2024-03-09 15:36 | XMS_ITS | Encounter Summary ---
Author Organization [employer] Address [address] [place] [address] Care Team Providers Care Perinatal Technician Name Role Phone Jamal CARLISLE DO, Robert William Primary Care Provide r Unavailable Desiree Patrick MD Unavailable Farrah Nicole APRN,VERIFIER OPERATOR Unavailable [phone] Bry Echevarria MD Unavailable [phone] Jamal CARLISLE DO, Robert William Unavailable Unav Stephani Diaz MD Primary Care Provider Shruti Vergara RN Unavailable Unavailable Bianka Loera CNP Primary Care Provider Desiree Patrick MD Primary Care P rovider Encounter Details Date Type Department Care Team (Late st Contact Info) Description 07/01/2017 Historical Conversion [facility] Family Medicine [address] [place] [id number] Social History Tobacco Use Types Packs/Day Years [...] of this encounter Procedure Notes * [facility] - 06/14/2018 12:00 AM CSTAssociated [...] by:Tiffani Carrero RN Jun 14 2018 7:43PM OUTSIDE MACHINIST SUPERVISOR * [facility] - 05/17/2018 12:00 [...] by:Tiffani Carrero RN May 17 2018 11:41AM OUTSIDE MACHINIST SUPERVISOR * [facility] 04/26/2018 12:00 AM CDTAssociated [...] by:Tiffani Carrero RN Apr 26 2018 4:12PM OUTSIDE MACHINIST SUPERVISOR * [facility] 03/22/2018 12:00 AM CDTAssociated [...] by:Tiffani Carrero RN Mar 22 2018 3:06PM OUTSIDE MACHINIST SUPERVISOR * [facility] DAY[facility] - 02/23/2018 12:00 AM CDTAssociated Order(s): ANTICOAGULATION Anticoagulation [facility] Name: CRISTIAN BLEDSOE : 1945 DOS: 02/23/2018 [...] by:Tiffani Carrero RN Feb 23 2018 10:29AM OUTSIDE MACHINIST SUPERVISOR * [facility] - 02/09/2018 12:00 AM CDTAssociated Order(s): ANTICOAGULATION Anticoagulation [facility] Name: CRISTIAN BLEDSOE : 1945 [...] by:Tiffani Carrero RN Feb 09 2018 4:06PM OUTSIDE MACHINIST SUPERVISOR * [facility] - 07/01/2017 12:00 AM CSTAssociated Order(s): [...] by:Theresa Crowder RN Jul 01 2017 5:02PM OUTSIDE MACHINIST SUPERVISOR documented in this encounter Plan of Treatment Not on file documented as of this encounter Procedures Procedure Name Priority Date/Time Associated Diagnosis Comments ANTICOAGULATION 06/14/2018 ANTICOAGULATION 05/17/2018 ANTICOAGULATION 04/26/2018 ANTICOAGULATION 03/22/2018 ANTICOAGULATION 02/23/2018 ANTICOAGULATION 02/09/2018 ANTICOAGULATION 07/01/2017 documented in this encounter Results * ANTICOAGULATION (06/14/2018) Narrative Procedure Note [facility]HELLE[facility]OVIBRANDO - 06/14/2018 12:00 AM CST Name: [...] by:Tiffani Carrero RN Jun 14 2018 7:43PM OUTSIDE MACHINIST SUPERVISOR [facility] OTHER * ANTICOAGULATION (05/17/2018) Narrative Procedure Note [facility] - 05/17/2018 12:00 AM CST Anticoagulation [facility] Name: CRISTIAN BLEDSOE : 1945 [...] by:Tiffani Carrero RN May 17 2018 11:41AM OUTSIDE MACHINIST SUPERVISOR [facility] OTHER * ANTICOAGULATION (04/26/2018) Narrative Procedure Note [facility] - 04/26/2018 12:00 AM CDT Anticoagulation [facility] Name: CRISTIAN BLEDSOE : 1945 [...] by:Tiffani Carrero RN Apr 26 2018 4:12PM OUTSIDE MACHINIST SUPERVISOR [facility] OTHER * ANTICOAGULATION (03/22/2018) Narrative Procedure Note [facility] - 03/22/2018 12:00 AM CDT Anticoagulation [facility] Name: CRISTIAN BLEDSOE : 1945 [...] by:Tiffani Carrero RN Mar 22 2018 3:06PM OUTSIDE MACHINIST SUPERVISOR [facility] OTHER * ANTICOAGULATION (02/23/2018) Narrative Procedure Note [facility] - 02/23/2018 12:00 AM CDT Anticoagulation [facility] Name: CRISTINA BLEDSOE : 1945 DOS: 02/23/2018 Cristian is [...] by:Tiffani Carrero RN Feb 23 2018 10:29AM OUTSIDE MACHINIST SUPERVISOR [facility] OTHER * ANTICOAGULATION (02/09/2018) Narrative Procedure Note [facility] - 02/09/2018 12:00 AM CDT [facility]tico[facility] [...] by:Tiffani Carrero RN Feb 09 2018 4:06PM OUTSIDE MACHINIST SUPERVISOR [facility] OTHER * ANTICOAGULATION (07/01/2017) Narrative Procedure Note [facility] - 07/01/2017 12:00 AM CST Name: [...] by:Theresa Crowder RN Jul 01 2017 5:02PM OUTSIDE MACHINIST SUPERVISOR Genericprovider [facility] OTHER documented in this encounter Visit Diagnoses Not on filedocumented in this encounter Care Teams Perinatal Technician Relationship Specialty Start Date End Date Casey Berry II, DO PCP - General 11/22/06 08/17/19 Stephani Aleman MD PCP - General Family Medicine 08/18/19 09/16/20 Bianka Loera FISH PROCESSOR [address] [facility] [address] [place] [address] PCP - General Nurse Practitioner Family 09/17/2001/10 Desiree Patrick MD [address] [place] [address] PCP - General Electrophysiology 02/23/22 03/09/22 [place] [address] [place] [address] 08/09/17 Farrah Nicole APRN,ALEX [address] [place] [place] [address] 08/09/17 Bry Echevarria MD [address] [place] [address] 08/09/17 Casey Berry II, DO 08/09/17 Shruti Vergara RN RN Registered Nurse 08/27/20 documented as of this encounter Additional Source Comments PLEASE NOTE: Replies to this message will not be received.[facility] and [facility]
--- OUTSIDE RECORDS SUMMARY | 2024-03-09 15:36 | XMS_ITS | Encounter Summary ---
Author Organization [employer] Address [address] [place] [address] Care Team Providers Care Hypnotherapist Name Role Phone Jamal CARLISLE DO, Robert William Primary Care Provide r Unavailable Desiree Patrick MD Unavailable Farrah Nicole APRN,EMERGENCY WORKER Unavailable Bry Echevarria MD Unavailable Jamal CARLISLE DO, Robert William Unavailable Unav Stephani Diaz MD Primary Care Provider [phone] Shruti Vergara RN Unavailable Unavailable Bianka Loera CNP Primary Care Provider Desiree Patrick MD Primary Care P rovider Encounter Details Date Type Department Care Team (Late st Contact Info) Description 07/01/2017 Historical Conversion [facility] Family [facility] [address] [facility] [place] [address] Bry Echevarria MD [address] [place] [address] Social History Tobacco Use Types [...] ap pointment with the anticoagulation clinic in [facility] on July 09, 2017.[facility] [place] [facility] [address] and updated [facility]. The medicine list was reconciled. History of Present Illness Mr Carroll is a 71-year-old white male who comes to my on-call internal medicine clinic today forfollow-up of her recent hospitalization. His primary care physician is Dr. Berry. The patient was hospitalized in [place] last week and he underwent a cardioversion with the dofetilide. He is now onthat medication twice a day. His INR was slightly elevated at 3.2 when he was up in [place]. He was told to come in today for an INR check. He has not had any problems with bleeding. We did check his anticoagulation and his INR was therapeutic at 2.8. He will follow-up with the anticoagulation clinic in [facility] in 8 days and he will [...] in atrial fibrillation.He is following up with [place] cardiology in 1 month. Allergies 1. Penicillins 2. Sulfa Drugs Vitals Vital Signs Recorded: [id number] 02:41PM Systolic 136, LUE, Sitting Diastolic 70, [...] questions appropriately. Results/Data Results, Free Text - [facility]: is therapeutic at 2.8. Signatures Electronically signed by : Bry Echevarria M.D.; Jul 01 2017 3:31PM BUSINESS BANKING SALES ASSISTANT (Author) documented in this encounter Plan of Treatment Not on file documented as of this encounter Visit Diagnoses Not on filedocumented in this encounter Care Teams Hypnotherapist Relationship Specialty Start Date End Date Casey Berry II, DO PCP - General 11/22/06 08/17/19 Stephani Aleman MD PCP - General Family Medicine 08/18/19 09/16/20 Bianka Loera, FIELD CAPTAIN [address] [place] [phone] PCP - General Nurse Practitioner Family 09/17/20 712/31 Desiree Patrick MD [address] [place] [address] PCP - General Electrophysiology 02/23/22 03/09/22 Desiree Patrick MD [address] [place] [address] 08/09/17 Farrah Nicole, HEAD BAGGAGE PORTER,[facility] [address] [place] [address] 08/09/17 Bry Echevarria MD [address] [place] [address] [place] [phone] 08/09/17 Casey Berry II, DO 08/09/17 Shruti Vergara, RN RN Registered Nurse 08/27/20 documented as of this encounter Additional Source Comments PLEASE NOTE: Replies to this message will not be received.[facility] and [facility]
--- OUTSIDE RECORDS SUMMARY | 2024-03-09 15:36 | XMS_ITS | Encounter Summary ---
Author Organization [employer] Address [address] [place] [address] Care Team Providers Care Tile And Mottle Supervisor Name Role Phone Jamal CARLISLE DO, Robert William Primary Care Provide r Unavailable Desiree Patrick MD Unavailable Farrah Nicole APRN,DIRECTOR OF PRECLINICAL RESEARCH Unavailable Bry Echevarria MD Unavailable Jamal CARLISLE DO, Robert William Unavailable Unav Stephani Diaz MD Primary Care Provider Shruti Vergara RN Unavailable Unavailable Bianka Loera CNP Primary Care Provider [phone] Desiree Patrick MD Primary Care P rovider Encounter Details Date Type Department Care Team (Late st Contact Info) Description 07/22/2018 Historical Conversion [facility] Family Medicine [address] [place] [address] Moon Maloney MD Social History Tobacco Use [...] Comments Blood Pressure 120/58 07/22/2018 12:00 AM WOUND/OSTOMY NURSE Pulse - - Temperature - - Respiratory Rate - - Oxygen Saturation - - Inhaled Oxygen Concentration - - Weight 93.8 kg (206 lb 12.7 oz) 019 12:00 AM WOUND/OSTOMY NURSE Height - - Body Mass Index 27.28 06/20/2018 8:23 AM WOUND/OSTOMY NURSE documented in this encounter Functional Status Functional [...] on filedocumented in this encounter Care Teams Tile And Mottle Supervisor Relationship Specialty Start Date End Date Casey Berry II, DO PCP - General 11/22/06 08/17/19 Stephani Aleman MD PCP - General Family Medicine 08/18/19 09/16/20 Bianka Loera CNP [address] [facility] 2 [place] [phone] PCP - General Nurse Practitioner Family 09/17/2001/10 [place] [address] [place] [address] PCP - General Electrophysiology 02/23/22 03/09/22 Desiree Patrick MD [address] [place] [address] 08/09/17 Farrah Nicole APRN,DIRECTOR OF PRECLINICAL RESEARCH [address] [place] [address] 08/09/17 Bry Echevarria MD [address] [place] [address] 08/09/17 Casey Berry II, DO 08/09/17 Shruti Vergara RN RN Registered Nurse 08/27/20 documented as of this encounter Additional Source Comments PLEASE NOTE: Replies to this message will not be received.[facility]
--- OUTSIDE RECORDS SUMMARY | 2024-03-09 15:36 | XMS_ITS | Encounter Summary ---
Author Organization [employer] Address [address] [place] [address] Care Team Providers Care Insurance Sales Representative Name Role Phone Jamal CARLISLE DO, Robert William Primary Care Provide r Unavailable Desiree Patrick MD Unavailable Farrah Nicole APRN,DRESSING ROOM PORTER Unavailable Bry Echevarria MD Unavailable Jamal CARLISLE DO, Robert William Unavailable Unav Stephani Diaz MD Primary Care Provider [phone] Shruti Vergara RN Unavailable Unavailable Bianka Loera CNP Primary Care Provider Desiree Patrick MD Primary Care P rovider Encounter Details Date Type Department Care Team (Late st Contact Info) Description 12/31/[address] [facility] Family Medicine [address] [facility] [place] [address] Desiree Rubi PAC [address] [place] [address] Social History Tobacco Use Types [...] filedocumented in this encounter Care Teams Insurance Sales Representative Relationship Specialty Start Date End Date Casey Berry II, DO PCP - General 11/22/06 08/17/19 Stephani Aelman MD PCP - General Family Medicine 08/18/19 09/16/20 Bianka Loera CNP [address] [facility] [address] [place] [address] PCP - General Nurse Practitioner Family 09/17/2001/10 Desiree Patrick MD [address] [place] [address] PCP - General Electrophysiology 02/23/22 03/09/22 Desiree Patrick MD [address] [place] [address] 08/09/17 Farrah Nicole APRN,DRESSING ROOM PORTER [address] [place] [address] 08/09/17 Bry Echevarria MD [address] [place] [address] [place] [address] 08/09/17 Casey Berry II, DO 08/09/17 Shruti Vergara RN RN Registered Nurse 08/27/20 documented as of this encounter Additional Source Comments PLEASE NOTE: Replies to this message will not be received.[facility] and [facility]
--- OUTSIDE RECORDS SUMMARY | 2024-03-09 15:36 | XMS_ITS | Encounter Summary ---
Author Organization [employer] Address [address] [place] [address] Care Team Providers Care Communications Controller Name Role Phone Jamal CARLISLE DO, Robert William Primary Care Provide r Unavailable Desiree Patrick MD Unavailable Farrah Nicole APRN,STORE SALES CONSULTANT Unavailable [phone] Bry Echevarria MD Unavailable [phone] Jamal CARLISLE DO, Robert William Unavailable Unav Stephani Diaz MD Primary Care Provider Shruti Vergara RN Unavailable Unavailable Bianka Loera CNP Primary Care Provider [phone] Desiree Patrick MD Primary Care P rovider Encounter Details Date Type Department Care Team (Late st Contact Info) Description 06/25/2017 Historical Conversion [facility] Family Medicine [address] [place] [address] Social History Tobacco Use Types Packs/Day Years [...] as of this encounter Progress Notes * [facility] - 06/25/2017 12:00 AM CST Medication Reconciliation Post Discharge Name: CRISTIAN BLEDSOE Date of Discharge: 06/24/2017 Current Meds 1. Digoxin 125 MCG Oral Tablet; Therapy: (Recorded:[id number]) to Recorded 2. DilTIAZem HCl - 60 MG Oral Tablet; TAKE 1 TABLET BY MOUTH DAILY; Therapy: 14Apr2017 to (Evaluate:[id number]) Requested for: [id number] Recorded 3. Dofetilide 250 MCG Oral Capsule; TAKE 1 CAPSULE TWICE DAILY; Therapy: (Recorded:[id number]) to Recorded 4. Metoclopramide HCl - 5 MG Oral Tablet (Reglan); TAKE 1 TABLET BY MOUTH THREE TIMES DAILY WITH MEALS; Therapy: 10Sep2014 to (Evaluate:17Sep2017) Requested for: 20May2017; Last Rx:20May2017 Ordered 5. Metoprolol Tartrate 50 MG Oral Tablet; TAKE 1 TABLET TWICE DAILY; Therapy: (Recorded:[id number]) to Recorded 6. Tylenol Extra Strength 500 MG Oral Tablet; Therapy: (Recorded:[id number]) to Recorded 7. Warfarin Sodium 5 MG Oral Tablet (Coumadin); Take as directed by [facility]; Therapy: [id number] to (Evaluate:28May2018) Requested for: 02Jun2017 Recorded Medication [...] INR checked next week. Reviewed 24 hour airplane refueler line, when to call PCP, and when to call 911. Patient voiced understanding. STACY Rasheed Follow-Up Recommendations Follow up with the following provider(s): cardiology 1 mo I reviewed with the patient the 24 hour nurse line and ecouraged them to call if they had any questions or concerns. Patient voiced understanding. Signatures Electronically signed by : Emma Estrella RN; Jun 25 2017 11:25AM DIRECTOR OF TAX SERVICES documented in this encounter Plan of Treatment Not on file documented as of this encounter Visit Diagnoses Not on filedocumented in this encounter Care Teams Communications Controller Relationship Specialty Start Date End Date Casey Berry II, DO PCP - General 11/22/06 08/17/19 Stephani Aleman MD PCP - General Family Medicine 08/18/19 09/16/20 Bianka Loera CNP [address] [facility] 2 [place] [address] PCP - General Nurse Practitioner Family 09/17/20 7/12/31 Desiree Patrick MD [address] [facility] [place] [address] PCP - General Electrophysiology 02/23/22 03/09/22 Desiree Patrick MD [address] [place] [facility] [address] 08/09/17 Farrah Nicole APRN,STORE SALES CONSULTANT [address] [place] [facility] [address] 08/09/17 Bry Echevarria MD [facility] [address] [place] [address] 08/09/17 Casey Berry II, DO 08/09/17 Shruti Vergara RN RN Registered Nurse 08/27/20 documented as of this encounter Additional Source Comments PLEASE NOTE: Replies to this message will not be received.[facility] and [facility]
--- OUTSIDE RECORDS SUMMARY | 2024-03-09 15:36 | XMS_ITS | Encounter Summary ---
Author Organization [employer] Address [address] [place] [address] Care Team Providers Care Remote Sensing Specialist Name Role Phone Jamal CARLISLE DO, Robert William Primary Care Provide r Unavailable Desiree Patrick MD Unavailable Farrah Nicole APRN,PAPER MAKER Unavailable [phone] Bry Echevarria MD Unavailable [phone] Jamal CARLISLE DO, Robert William Unavailable Unav Stephani Diaz MD Primary Care Provider [phone] Shruti Vergara RN Unavailable Unavailable Bainka Loera CNP Primary Care Provider Desiree Patrick MD Primary Care P rovider Encounter Details Date Type Department Care Team (Late st Contact Info) Description 10/18/2017 Historical Conversion [facility] Family Medicine [address] [place] [address] Casey Berry II, DO Social History Tobacco [...] Body Mass Index 27.09 09/07/2017 12:00 AM DIALS SUPERVISOR documented in this encounter Functional Status [...] on filedocumented in this encounter Care Teams Remote Sensing Specialist Relationship Specialty Start Date End Date Casey Berry II, DO PCP - General 11/22/06 08/17/19 Stephani Aleman MD PCP - General Family Medicine 08/18/19 09/16/20 Bianka Loera CNP [address] [facility] 2 [place] [phone] PCP - General Nurse Practitioner Family 09/17/2001/10 [place] [address] [place] [address] PCP - General Electrophysiology 02/23/22 03/09/22 Desiree Patrick MD [address] [place] [address] 08/09/17 Farrah Nicole APRN,PAPER MAKER [address] [place] [address] 08/09/17 Bry Echevarria MD [address] [place] [address] 08/09/17 Casey Berry II, DO 08/09/17 Shruti Vergara RN RN Registered Nurse 08/27/20 documented as of this encounter Additional Source Comments PLEASE NOTE: Replies to this message will not be received.[facility] and [facility]
--- OUTSIDE RECORDS SUMMARY | 2024-03-09 15:36 | XMS_ITS | Encounter Summary ---
Author Organization [email or web address] Address [address] [place] [address] Care Team Providers Care Mining Helper Name Role Phone Jamal CARLISLE DO, Robert William Primary Care Provide r Unavailable Desiree Patrick MD Unavailable Farrah Nicole APRN,RECORDS MANAGEMENT ANALYST Unavailable Bry Echevarria MD Unavailable [phone] Jamal CARLISLE DO, Robert William Unavailable Unav Stephani Diaz MD Primary Care Provider [phone] Shruti Vergara RN Unavailable Unavailable Bianka Loera CNP Primary Care Provider [phone] Desiree Patrick MD Primary Care P rovider Encounter Details Date Type Department Care Team (Late st Contact Info) Description 06/13/2018 Historical Conversion [facility] Family Medicine [address] [place] [id number] Social History Tobacco Use Types Packs/Day Years [...] as of this encounter Progress Notes * [facility], GENERICPROVIDER - 11/02/2018 12:00 AM CDT Balance [...] week. Joan Everett PTA/Kassy Barone PT, [place] #[id number] Electronically signed by:Joan Everett PTA Nov 02 2018 2:00PM PRINCIPAL TRAINER Charge Rn/Recorder Electronically signed by:Trish Barone PT Nov 07 2018 4:43PM PRINCIPAL TRAINER * [facility] - 10/26/2018 12:00 AM [...] by:Joan Everett PTA Oct 28 2018 7:51AM PRINCIPAL TRAINER Charge Rn/Recorder Electronically signed by:Trish Barone PT Oct 31 2018 7:01PM PRINCIPAL TRAINER * [facility] [place] - 09/19/2018 12:00 AM CDT PHYSICAL THERAPY STUDENT NOTE BALANCE EVALUATION CRISTIAN BLEDSOE : 1945 HX: [id number] DOS: 09/19/2018 REFERRING PROVIDER: Casey Berry D.O. 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 He is currently [...] PATIENT RECEIVED: Patient received 30 minutes of iapu-un-vwoq evaluation with three or more comorbidities and three or more elements addressed. Clinical presentation is evolving and clinical complexity is moderate. Patient also received canalith repositioning maneuvers on this date. Lennox LEAHY/Trish Barone, PT #[id number] / lb-12 cc: Casey Berry D.O., [facility] Electronically signed by:Lennox Malagon Sep 20 2018 7:56PM PRINCIPAL TRAINER Co-author Electronically signed by:Lennox Malagon Sep 27 2018 8:39AM PRINCIPAL TRAINER Co-author Electronically signed by:Trish Barone PT Oct 02 2018 5:18PM PRINCIPAL TRAINER documented in this encounter Procedure Notes * [facility] - 10/26/2018 12:00 AM CDTAssociated Order(s): [...] by:Tiffani Carrero RN Oct 26 2018 4:16PM PRINCIPAL TRAINER * [facility] - 10/11/2018 12:00 AM CDTAssociated Order(s): ANTICOAGULATION [...] months. Patient verbalizes understanding. Electronically signed by:Tiffani Crarero RN Oct 11 2018 3:39PM PRINCIPAL TRAINER * [facility] - 09/07/2018 12:00 AM CSTAssociated Order(s): ANTICOAGULATION Anticoagulation Clinic [facility] [...] by:Tiffani Carrero RN Sep 07 2018 3:31PM PRINCIPAL TRAINER * [facility] - 08/22/2018 12:00 AM CSTAssociated Order(s): ANTICOAGULATION Anticoagulation [facility] Name: CRISTIAN BLEDSOE : 1945 DOS: 08/22/2018 [...] by:Tiffani Carrero RN Aug 22 2018 2:48PM PRINCIPAL TRAINER * [facility], GENERICPROVIDER - 07/13/2018 12:00 AM CSTAssociated Order(s): ANTICOAGULATION [facility] [...] by:Tiffani Carrero RN Jul 13 2018 2:41PM PRINCIPAL TRAINER * [facility] - 06/13/2018 12:00 AM CSTAssociated [...] Deborah Mandel RN; Jun 13 2018 12:37PM PRINCIPAL TRAINER documented in this encounter Plan of Treatment Not on file documented as of this encounter Procedures Procedure Name Priority Date/Time Associated Diagnosis Comments ANTICOAGULATION 10/26/2018 ANTICOAGULATION 10/11/2018 ANTICOAGULATION 09/07/2018 ANTICOAGULATION 08/22/2018 ANTICOAGULATION 07/13/2018 ANTICOAGULATION 06/13/2018 documented in this encounter Results * ANTICOAGULATION (10/26/2018) Narrative Procedure Note [facility] - 10/26/2018 12:00 AM CDT Name: [...] by:Tiffani Carrero RN Oct 26 2018 4:16PM PRINCIPAL TRAINER [facility] OTHER * ANTICOAGULATION (10/11/2018) Narrative Procedure Note [facility], GENERICPROGINADER - 10/11/2018 12:00 AM CDT [facility] [...] by:Tiffani Carrero RN Oct 11 2018 3:39PM PRINCIPAL TRAINER [facility] OTHER * ANTICOAGULATION (09/07/2018) Narrative Procedure Note [facility] - 09/07/2018 12:00 AM CST Anticoagulation [facility] Name: CRISTIAN BLEDSOE : 1945 DOS: 09/07/2018 [...] by:Tiffani Carrero RN Sep 07 2018 3:31PM PRINCIPAL TRAINER [facility] OTHER * ANTICOAGULATION (08/22/2018) Narrative Procedure Note [facility] - 08/22/2018 12:00 AM CST Anticoagulation [facility] Name: CRISTIAN BLEDSOE : 1945 DOS: 08/22/2018 [...] by:Tiffani Carrero RN Aug 22 2018 2:48PM PRINCIPAL TRAINER [facility] OTHER * ANTICOAGULATION (07/13/2018) Narrative Procedure Note [facility] - 07/13/2018 12:00 AM CST [facility] [...] by:Tiffani Carrero RN Jul 13 2018 2:41PM PRINCIPAL TRAINER [facility] OTHER * ANTICOAGULATION (06/13/2018) Narrative [...] Deborah Mandel RN; Jun 13 2018 12:37PM PRINCIPAL TRAINER [facility] OTHER documented in this encounter Visit Diagnoses Not on filedocumented in this encounter Care Teams Mining Helper Relationship Specialty Start Date End Date Casey Berry II, DO PCP - General 11/22/06 08/17/19 Stephani Aleman MD PCP - General Family Medicine 08/18/19 09/16/20 Bianka Loera CNP [address] [place] [phone] PCP - General Nurse Practitioner Family 09/17/2001/10 Desiree Patrick MD [address] [place] [address] PCP - General Electrophysiology 02/23/22 03/09/22 Desiree Patrick MD [address] [place] [address] 08/09/17 Farrah Nicole APRN,RECORDS MANAGEMENT ANALYST [address] [place] [address] 08/09/17 Bry Echevarria MD [facility][note 3] [place] [id number] 08/09/17 Casey Berry II DO 08/09/17 Shruti Vergara, RN RN Registered Nurse 08/27/20 documented as of this encounter Additional Source Comments PLEASE NOTE: Replies to this message will not be received.[facility] and [facility]
--- OUTSIDE RECORDS SUMMARY | 2024-03-09 15:36 | XMS_ITS | Encounter Summary ---
Author Organization [employer] Address [address] [place] [address] Care Team Providers Care Hotel Desk Clerk Name Role Phone Jamal CARLISLE DO, Robert William Primary Care Provide r Unavailable Desiree Patrick MD Unavailable Farrah Nicole APRN,STONE REPAIRER Unavailable [phone] Bry Echevarria MD Unavailable [phone] Jamal CARLISLE DO, Robert William Unavailable Unav Stephani Diaz MD Primary Care Provider Shruti Vergara RN Unavailable Unavailable Bianka Loera CNP Primary Care Provider Desiree Patrick MD Primary Care P rovider Encounter Details Date Type Department Care Team (Late st Contact Info) Description 07/01/2017 Historical Conversion [facility] Family Medicine [address] [facility] [address] [address] Bry Echevarria MD [address] [place] [address] Social History Tobacco Use Types [...] Comments Blood Pressure 136/70 07/01/2017 12:00 AM CHICKEN HANGER Pulse - - Temperature - - Respiratory Rate - - Oxygen Saturation - - Inhaled Oxygen Concentration - - Weight 97.6 kg (215 lb 2.7 oz) 07/01/2017 12:00 AM CHICKEN HANGER Height - - Body Mass Index 28.39 06/21/2017 2:27 PM CHICKEN HANGER documented in this encounter Functional Status Functional [...] on filedocumented in this encounter Care Teams Hotel Desk Clerk Relationship Specialty Start Date End Date Casey Berry II, DO PCP - General 11/22/06 08/17/19 Stephani Aleman MD PCP - General Family Medicine 08/18/19 09/16/20 Bianka Loera CNP [address] [facility] [place] [address] PCP - General Nurse Practitioner Family 09/17/2001/10 Desiree Patrick MD [address] [place] [address] PCP - General Electrophysiology 02/23/22 03/09/22 Desiree Patrick MD [address] [place] [address] 08/09/17 Farrah Nicole APRN,STONE REPAIRER [address] [place] [address] 08/09/17 Bry Echevarria MD [address] [place] [address] [place] [address] 08/09/17 Casey Berry II, DO 08/09/17 Shruti Vergara RN RN Registered Nurse 08/27/20 documented as of this encounter Additional Source Comments PLEASE NOTE: Replies to this message will not be received.[facility] and [facility]
--- OUTSIDE RECORDS SUMMARY | 2024-03-09 15:36 | XMS_ITS | Encounter Summary ---
Author Organization [employer] Address [address] [place] [address] Care Team Providers Care Registered Nurse Float Pool Name Role Phone Jamal CARLISLE DO, Robert William Primary Care Provide r Unavailable Desiree Patrick MD Unavailable Farrah Nicole APRN,STAFF INTERNIST OFFICE BASED ONLY Unavailable Bry Echevarria MD Unavailable [phone] Jamal CARLISLE DO, Robert William Unavailable Unav Stephani Diaz MD Primary Care Provider Shruti Vergara RN Unavailable Unavailable Bianka Loera CNP Primary Care Provider [phone] Desiree Patrick MD Primary Care P rovider Encounter Details Date Type Department Care Team (Late st Contact Info) Description 06/23/2018 Historical Conversion [facility] Family Medicine [address] [place] [address] Moon Maloney MD Social History Tobacco Use [...] MD - 07/22/2018 12:[address] [facility] CRISTIAN BLEDSOE : 1945 HX: [id number] DOS: 07/22/2018 SUBJECTIVE: Cristian saw me on [...] M.D./la-15 cc: Casey Berry II, D.O./[facility] Electronically signed by:Moon Maloney M.D. Jul 27 2018 9:15AM FREIGHT REPRESENTATIVE * Moon Maloney MD - 06/23/2018 12:00 AM CST UROLOGY CRISTIAN BLEDSOE : [id number] 06/23/2018 SUBJECTIVE: Cristian comes to see me [...] short-term ADT. He is not on any JUDICIAL REPORTER. His most recent PSA was 0.051 so [...] Moon K. Gemar, M.D./mdh-14 cc: Dr. Kofi Navarro-[facility] Electronically signed by:Moon Maloney M.D. Jun 24 2018 12:40PM FREIGHT REPRESENTATIVE documented in this encounter Plan of Treatment Not on file documented as of this encounter Visit Diagnoses Not on filedocumented in this encounter Care Teams Registered Nurse Float Pool Relationship Specialty Start Date End Date Casey Berry II, DO PCP - General 11/22/06 08/17/19 Stephani Aleman MD PCP - General Family Medicine 08/18/19 09/16/20 Bianka Loera CNP [address] [place] [phone] PCP - General Nurse Practitioner Family 09/17/2001/10 Desiree Patrick MD [address] [place] [address] PCP - General Electrophysiology 02/23/22 03/09/22 Desiree Patrick MD [address] [place] [address] 08/09/17 Farrah Nicole APRN,STAFF INTERNIST OFFICE BASED ONLY [address] [place] [address] 08/09/17 Bry Echevarria MD [facility] [place] [phone] 08/09/17 Casey Berry II, DO 08/09/17 Shruti Vergara RN RN Registered Nurse 08/27/20 documented as of this encounter Additional Source Comments PLEASE NOTE: Replies to this message will not be received.[facility] and [facility]
--- OUTSIDE RECORDS SUMMARY | 2024-03-09 15:36 | XMS_ITS | Encounter Summary ---
Author Organization [employer] Address [address] [place] [address] Care Team Providers Care Pan Devulcanizer Helper Name Role Phone Jamal CARLISLE DO, Robert William Primary Care Provide r Unavailable Desiree Patrick MD Unavailable Farrah Nicole APRN,OVEN PRESS TENDER Unavailable Bry Echevarria MD Unavailable Jamal CARLISLE DO, Robert William Unavailable Unav Stephani Diaz MD Primary Care Provider [phone] Shruti Vergara RN Unavailable Unavailable Bianka Loera CNP Primary Care Provider [phone] Desiree Patrick MD Primary Care P rovider Encounter Details Date Type Department Care Team (Late st Contact Info) Description 02/03/2017 Historical Conversion [facility] [address] [place] [id number] Social History Tobacco Use Types Packs/Day Years [...] as of this encounter Procedure Notes * [facility] 12:00 AM CDTAssociated Order(s): ANTICOAGULATION [facility] Name: CRISTIAN BLEDSOE : 1945 [...] by:Tiffani Carrero RN Jan 05 2018 12:21PM CASINO RUNNER * [facility] 12/21/2017 12:00 AM CDTAssociated Order(s): ANTICOAGULATION [facility] Name: CRISTIAN BLEDSOE : 1945 [...] by:Tiffani Carrero RN Dec 21 2017 8:31AM CASINO RUNNER * [facility] - 11/24/2017 12:00 AM CDTAssociated Order(s): ANTICOAGULATION Anticoagulation [facility] Name: CRISTIAN BLEDSOE : 1945 DOS: 11/24/2017 [...] by:Tiffani Carrero RN Nov 24 2017 2:41PM CASINO RUNNER * [facility] - 10/27/2017 12:00 AM CDTAssociated Order(s): ANTICOAGULATION Anticoagulation [facility] Name: CRISTIAN BLEDSOE : 1945 [...] muscle relaxer. He also reports that his kids activities coach has changed his medications. Patient stales that he is no longer takingany rate control medications. INR tested today is therapeutic at 2.0 with the recommended range of 2.0 to 3.0. He will continue Coumadin at 5 mg daily with an INR recheck in one month, sooner for anychanges. Patient verbalizes understanding. Electronically signed by:Tiffani Carrero RN Oct 28 2017 7:02AM CASINO RUNNER * [facility] - 09/29/2017 12:00 AM CDTAssociated Order(s): ANTICOAGULATION [facility] Name: CRISTIAN BLEDSOE : 1945 DOS: 09/29/2017 Cristian is a patient of Dr. Berry. He is here today for anticoagulation assessment and INR check for adiagnosis of atrial fibrillation. Patient states that he is feeling well. He denies any changes in medication. Patient reports that he continues to experience bradycardia and is working with his kids activities coach to manage his beta blockers slowly. INR tested today is therapeutic at 2.1 with the recommended range of 2.0 to 3.0. He will continue Coumadin at 5 mg daily with an INR recheck in one month, sooner for any changes. Patient verbalizes understanding. Electronically signed by:Tiffani Carrero RN Sep 29 2017 2:09PM CASINO RUNNER * [facility] - 09/15/2017 12:00 AM CSTAssociated Order(s): ANTICOAGULATION [facility] Name: CRISTIAN BLEDSOE : 1945 [...] that Dr. Berry will converse with his kids activities coach to see if they should change some of his heart medications. Patient will call [facility] nurse with any updates. INR tested today is 1.9 with the recommended range of 2.0 to 3.0. He will adjust Coumadin to 5 mg daily with an INR recheck in two weeks. Patient verbalizes understanding. Electronically signed by:Tiffani Carrero RN Sep 15 2017 11:42AM CASINO RUNNER * [facility] - 08/18/2017 12:00 AM CSTAssociated Order(s): ANTICOAGULATION [facility] Name: CRISTIAN BLEDSOE : 1945 [...] by:Tiffani Carrero RN Aug 18 2017 6:00PM CASINO RUNNER * [facility] - 07/09/2017 12:00 AM CSTAssociated Order(s): ANTICOAGULATION [facility] Name: CRISTIAN BLEDSOE : 1945 [...] by:Tiffani Carrero RN Jul 09 2017 11:28AM CASINO RUNNER * [facility] - 06/16/2017 12:00 AM CSTAssociated Order(s): ANTICOAGULATION [facility] Name: CRISTIAN BLEDSOE : 1945 DOS: 06/16/2017 This is a patient of Dr. Berry. He is here today for an anticoagulation assessment and INR check fora diagnosis of atrial fibrillation. He states that he has been feeling well. Patient denies any recent medication changes. He reports that he needs weekly INR checks per Dr. Patrick at [facility] in preparation for taking [...] by:Tiffani Carrero RN Jun 16 2017 4:18PM CASINO RUNNER * [facility] - 06/09/2017 12:00 AM CSTAssociated Order(s): ANTICOAGULATION [facility] Name: CRISTIAN BLEDSOE : 1945 DOS: 06/09/2017 This is a patient of Dr. Berry. He is here today for an anticoagulation assessment and INR check fora diagnosis of atrial fibrillation. He states that he has been feeling well. Patient denies any recent medication changes. He reports that he needs weekly INR checks per Dr. Patrick at [facility] in preparation for taking [...] by:Tiffani Carrero RN Jun 09 2017 3:40PM CASINO RUNNER * [facility] - 06/02/2017 12:00 AM CSTAssociated Order(s): ANTICOAGULATION [facility] Name: CRISTIAN BLEDSOE : 1945 DOS: 06/02/2017 This is a patient of Dr. Berry. He is here today for an anticoagulation assessment and INR check fora diagnosis of atrial fibrillation. He states that he has been feeling well. Patient denies any recent medication changes. He reports that he will need weekly INR checks per Dr. Patrick at [facility] in preparation for taking dofetilide and a [...] by:Tiffani Carrero RN Jun 02 2017 9:39AM CASINO RUNNER AMENDMENTS: 1. current INR and Coumadin dosing. Electronically signed by:Tiffani Carrero RN Jun 09 2017 3:41PM CASINO RUNNER * [facility] - 05/26/2017 12:00 AM CSTAssociated Order(s): ANTICOAGULATION [facility] Name: CRISTIAN BLEDSOE : 1945 DOS: 05/26/2017 This is a patient of Dr. Berry. He is here today for an anticoagulation assessment and INR check fora diagnosis of atrial fibrillation. He states that he has been feeling well. Patient denies any recent medication changes. He reports that he will need weekly INR checks per Dr. Patrick at [facility] in preparation for taking [...] by:Tiffani Carrero RN May 26 2017 9:42AM CASINO RUNNER * [facility] - 05/19/2017 12:00 AM CSTAssociated Order(s): ANTICOAGULATION [facility] Name: CRISTIAN BLEDSOE : 1945 DOS: 05/19/2017 This is a patient of Dr. Berry. He is here today for an anticoagulation assessment and INR check fora diagnosis of atrial fibrillation. He states that he has been feeling well. Patient denies any recent medication changes. He reports that he will need weekly INR checks per Dr. Patrick at [facility] in preparation for taking [...] by:Tiffani Carrero RN May 19 2017 3:13PM CASINO RUNNER * [facility] - 05/14/2017 12:00 AM CDTAssociated Order(s): ANTICOAGULATION Email communication received from patient today: ALLAN Vera, RN [facility] (direct phone) [phone] Per our phone conversation of yesterday afternoon, I will be having an initiation of Tikosyn (Dofetilide) at [facility] beginning on June 21. To prepare for this, my kids activities coach,Dr. Desiree Patrick, has requested INR lab reports demonstrating 4 to 5 weeks of INR levels between 2.5 and 3 prior to the initiation of Tikosyn. Would you please fax my INR lab reports for the month of May to Tamika, Dr. Patrick???s nurse, at (fax) [phone]? The phone number for Dr. Patrick is [phone]. As we discussed, I will come in for INR testing each Wednesday morning at 9:30 AM to meet this requirement. Thank you, Anurag Bledsoe Electronically signed by:Tiffani Carrero RN May 14 2017 9:46AM CASINO RUNNER * [facility] - 05/10/2017 12:00 AM CDTAssociated Order(s): ANTICOAGULATION [facility] Name: CRISTIAN BLEDSOE : 1945 DOS: 05/10/2017 This is a patient of Dr. Berry. He is here today for an anticoagulation assessment and INR check fora diagnosis of atrial fibrillation. He states that he has been feeling well. Patient denies any recent medication changes. He reports that he will need weekly INR checks per Dr. Patrick at [facility] in preparation for taking [...] by:Tiffani Carrero RN May 10 2017 3:11PM CASINO RUNNER * [facility] - 04/06/2017 12:00 AM CDTAssociated Order(s): ANTICOAGULATION [facility] Name: CRISTIAN BLEDSOE : 1945 [...] by:Tiffani Carrero RN Apr 06 2017 12:37PM CASINO RUNNER * [facility] - 03/03/2017 12:00 AM CDTAssociated Order(s): ANTICOAGULATION [facility] Name: CRISTIAN BLEDSOE : 1945 [...] He will have INR checked in the [facility] prior to his appointment with Dr. Maloney. Patient verbalized understanding. Electronically signed by:Tiffani Carrero RN Mar 03 2017 12:02PM CASINO RUNNER * [facility] - 02/03/2017 12:00 AM CDTAssociated Order(s): ANTICOAGULATION [facility] Name: CRISTIAN BLEDSOE : 1945 [...] by:Tiffani Carrero RN Feb 03 2017 10:11AM CASINO RUNNER documented in this encounter Plan of Treatment [...] Results * ANTICOAGULATION (01/05/2018) Narrative Procedure Note [facility] - 01/05/2018 12:00 AM CDT Anticoagulation [facility] Name: CRISTIAN BLEDSOE : 1945 [...] by:Tiffani Carrero RN Jan 05 2018 12:21PM CASINO RUNNER [facility] OTHER * ANTICOAGULATION (12/21/2017) Narrative Procedure Note [facility] - 12/21/2017 12:00 AM CDT Anticoagulation [facility] Name: CRISTIAN BLEDSOE : 1945 [...] by:Tiffani Carrero RN Dec 21 2017 8:31AM CASINO RUNNER [facility] OTHER * ANTICOAGULATION (11/24/2017) Narrative Procedure Note [facility] - 11/24/2017 12:00 AM CDT Anticoagulation [facility] Name: CRISTIAN BLEDSOE : 1945 DOS: 11/24/2017 [...] by:Tiffani Carrero RN Nov 24 2017 2:41PM CASINO RUNNER [facility] OTHER * ANTICOAGULATION (10/27/2017) Narrative Procedure Note [facility] - 10/27/2017 12:00 AM CDT Anticoagulation [facility] Name: CRISTIAN BLEDSOE : 1945 DOS: 10/27/2017 Cristian is a patient of Dr. Berry. He is here today for anticoagulationassessment and INR check for a diagnosis of atrial fibrillation. Patientstates that he has not been feeling well and has been suffering withspinal stenosis. He reports that he has been taking soma for a musclerelaxer. He also reports that his kids activities coach has changed hismedications. Patient stales that he is no longer taking any rate controlmedications. INR tested today is therapeutic at 2.0 with the recommendedrange of 2.0 to 3.0. He will continue Coumadin at 5 mg daily with an INRrecheck in one month, sooner for any changes. Patient verbalizesunderstanding. Electronically signed by:Tiffani Carrero RN Oct 28 2017 7:02AM CASINO RUNNER [facility] OTHER * ANTICOAGULATION (09/29/2017) Narrative Procedure Note [facility] - 09/29/2017 12:00 AM CDT Anticoagulation [facility] Name: CRISTIAN BLEDSOE : 1945 DOS: 09/29/2017 Cristian is a patient of Dr. Berry. He is here today for anticoagulationassessment and INR check for a diagnosis of atrial fibrillation. Patientstates that he is feeling well. He denies any changes in medication.Patient reports that he continues to experience bradycardia and is workingwith his kids activities coach to manage his beta blockers slowly. INR testedtoday is therapeutic at 2.1 with the recommended range of 2.0 to 3.0. Hewill continue Coumadin at 5 mg daily with an INR recheck in one month,sooner for any changes. Patient verbalizes understanding. Electronically signed by:Tiffani Carrero RN Sep 29 2017 2:09PM CASINO RUNNER [facility] OTHER * ANTICOAGULATION (09/15/2017) Narrative Procedure Note [facility] - 09/15/2017 12:00 AM CST [facility]ticoagulation [facility] Name: CRISTIAN BLEDSOE : 1945 [...] statesthat Dr. Berry will converse with his kids activities coach to see if they shouldchange some of his heart medications. Patient will call [facility] nurse with anyupdates. INR tested today is 1.9 with the recommended range of 2.0 to 3.0.He will adjust Coumadin to 5 mg daily with an INR recheck in two weeks.Patient verbalizes understanding. Electronically signed by:Tiffani Carrero RN Sep 15 2017 11:42AM CASINO RUNNER [facility] OTHER * ANTICOAGULATION (08/18/2017) Narrative Procedure Note [facility] - 08/18/2017 12:00 AM CST Anticoagulation [facility] Name: CRISTIAN BLEDSOE : 1945 [...] by:Tiffani Carrero RN Aug 18 2017 6:00PM CASINO RUNNER [facility] OTHER * ANTICOAGULATION (07/09/2017) Narrative Procedure Note [facility] - 07/09/2017 12:00 AM CST Anticoagulation [facility] Name: CRISTIAN BLEDSOE : 1945 [...] by:Tiffani Carrero RN Jul 09 2017 11:28AM CASINO RUNNER [facility] OTHER * ANTICOAGULATION (06/16/2017) Narrative Procedure Note [facility] - 06/16/2017 12:00 AM CST [facility] Name: CRISTIAN BLEDSOE : 1945 DOS: 06/16/2017 This is a patient of Dr. Berry. He is here today for an anticoagulationassessment and INR check for a diagnosis of atrial fibrillation. He statesthat he has been feeling well. Patient denies any recent medicationchanges. He reports that he needs weekly INR checks per Dr. Patrick [facility] in preparation for taking dofetilide [...] by:Tiffani Carrero RN Jun 16 2017 4:18PM CASINO RUNNER [facility] OTHER * ANTICOAGULATION (06/09/2017) Narrative Procedure Note [facility] - 06/09/2017 12:00 AM CST [facility]tico[facility] Name: CRISTIAN BLEDSOE : 1945 DOS: 06/09/2017 This is a patient of Dr. Berry. He is here today for an anticoagulationassessment and INR check for a diagnosis of atrial fibrillation. He statesthat he has been feeling well. Patient denies any recent medicationchanges. He reports that he needs weekly INR checks per Dr. Patrick [facility] in preparation for taking dofetilide [...] by:Tiffani Carrero RN Jun 09 2017 3:40PM CASINO RUNNER Genericprovider [facility] OTHER * ANTICOAGULATION (06/02/2017) Narrative Procedure Note [facility], [facility] - 06/02/2017 12:00 AM CST [facility] Name: CRISTIAN BLEDSOE : 1945 DOS: 06/02/2017 This is a patient of Dr. Berry. He is here today for an anticoagulationassessment and INR check for a diagnosis of atrial fibrillation. He statesthat he has been feeling well. Patient denies any recent medicationchanges. He reports that he will need weekly INR checks per Dr. Valencia [facility] in preparation for taking [...] by:Tiffani Carrero RN Jun 02 2017 9:39AM CASINO RUNNER AMENDMENTS: 1. current INR and Coumadin dosing. Electronically signed by:Tiffani Carrero RN Jun 09 2017 3:41PM CASINO RUNNER [facility] OTHER * [facility]TICOAGULATION (05/26/2017) Narrative Procedure Note [facility] - 05/26/2017 12:00 AM CST Anticoagulation [facility] Name: CRISTIAN BLEDSOE : 1945 DOS: 05/26/2017 This is a patient of Dr. Berry. He is here today for an anticoagulationassessment and INR check for a diagnosis of atrial fibrillation. He statesthat he has been feeling well. Patient denies any recent medicationchanges. He reports that he will need weekly INR checks per Dr. Valencia [facility] in preparation for taking [...] by:Tiffani Carrero RN May 26 2017 9:42AM CASINO RUNNER [facility] * [facility]ATION (05/19/2017) Narrative [facility] 05/19/2017 12:00 AM CST Anticoagulation [facility] Name: CRISTIAN BLEDSOE : 1945 DOS: 05/19/2017 This is a patient of Dr. Berry. He is here today for an anticoagulationassessment and INR check for a diagnosis of atrial fibrillation. He statesthat he has been feeling well. Patient denies any recent medicationchanges. He reports that he will need weekly INR checks per Dr. Valencia [facility] in preparation for taking [...] by:Tiffani Carrero RN May 19 2017 3:13PM CASINO RUNNER Genericprovider [facility] OTHER * ANTICOAGULATION (05/14/2017) Narrative Procedure Note [facility] - 05/14/2017 12:00 AM CDT Email communication received from patient today: ALLAN Vera, RN [facility] (direct phone) [phone] Per our phone conversation of yesterday afternoon, I will be having aninitiation of Tikosyn (Dofetilide) at [facility] beginning June 21. To prepare for this, my kids activities coach, Dr. Serra, has requested INR lab reports demonstrating 4 to 5 weeks ofINR levels between 2.5 and 3 prior to the initiation of Tikosyn. Would you please fax my INR lab reports for the month of May Oneil, Dr. Patrick? s nurse, at (fax) [phone]? The phone numberfor Dr. Patrick is [phone]. As we discussed, I will come in for INR testing each Wednesday morning at9:30 AM to meet this requirement. Thank you, Anurag Premapura Electronically signed by:Tiffani Carrero RN May 14 2017 9:46AM CASINO RUNNER [facility] OTHER * ANTICOAGULATION (05/10/2017) Narrative Procedure Note [facility], [facility] - 05/10/2017 12:00 AM CDT Anticoagulation [facility] Name: CRISTIAN BLEDSOE : 1945 DOS: 05/10/2017 This is a patient of Dr. Berry. He is here today for an anticoagulationassessment and INR check for a diagnosis of atrial fibrillation. He statesthat he has been feeling well. Patient denies any recent medicationchanges. He reports that he will need weekly INR checks per Dr. Valencia [facility] in preparation for taking [...] by:Tiffani Carrero RN May 10 2017 3:11PM CASINO RUNNER [facility] OTHER * ANTICOAGULATION (04/06/2017) Narrative Procedure Note [facility], [facility] - 04/06/2017 12:00 AM CDT Anticoagulation [facility] Name: CRISTIAN BLEDSOE : 1945 [...] by:Tiffani Carrero RN Apr 06 2017 12:37PM CASINO RUNNER [facility] OTHER * ANTICOAGULATION (03/03/2017) Narrative Procedure Note [facility] - 03/03/2017 12:00 AM CDT Anticoagulation [facility] Name: CRISTIAN BLEDSOE : 1945 [...] changes. He willhave INR checked in the [facility] prior to his appointment with . Patient verbalized understanding. Electronically signed by:Tiffani Carrero RN Mar 03 2017 12:02PM CASINO RUNNER [facility] OTHER * ANTICOAGULATION (02/03/2017) Narrative Procedure Note [facility] - 02/03/2017 12:00 AM CDT Anticoagulation [facility] Name: CRISTIAN BLEDSOE : 1945 [...] by:Tiffani Carrero RN Feb 03 2017 10:11AM CASINO RUNNER Genericprovider [facility] OTHER documented in this encounter Visit Diagnoses Not on filedocumented in this encounter Care Teams Pan Devulcanizer Helper Relationship Specialty Start Date End Date Casey Berry II, DO PCP - General 11/22/06 08/17/19 Stephani Aleman MD PCP - General Family Medicine 08/18/19 09/16/20 Bianka Loera CNP [address] [place] [address] [address] [place] [address] PCP - General Nurse Practitioner Family 09/17/2001/10 Desiree Patrick MD [address] [place] [address] PCP - General Electrophysiology 02/23/22 03/09/22 Desiree Patrick MD [address] [place] [address] 08/09/17 Farrah Nicole APRN,OVEN PRESS TENDER [address] [phone] 08/09/17 Bry Echevarria MD [address] [place] [phone] 08/09/17 Casey Berry II, DO 08/09/17 Shruti Vergara RN RN Registered Nurse 08/27/20 documented as of this encounter Additional Source Comments PLEASE NOTE: Replies to this message will not be received.[facility] and [facility]
--- OUTSIDE RECORDS SUMMARY | 2024-03-09 15:37 | XMS_ITS | Encounter Summary ---
Author Organization [employer] Address [address] [place] [address] Care Team Providers Care Screening Representative Name Role Phone Jamal CARLISLE DO, Robert William Primary Care Provide r Unavailable Desiree Patrick MD Unavailable Farrah Nicole APRN,CROSSING SUPERVISOR Unavailable Bry Echevarria MD Unavailable [phone] Jamal CARLISLE DO, Robert William Unavailable Unav Stephani Diaz MD Primary Care Provider Shruti Vergara RN Unavailable Unavailable Bianka Loera CNP Primary Care Provider [phone] Desiree Patrick MD Primary Care P rovider Encounter Details Date Type Department Care Team (Late st Contact Info) Description 03/10/2016 Historical Conversion [facility] Family Medicine [address] [place] [id number] Casey Berry II, DO Social History Tobacco [...] on filedocumented in this encounter Care Teams Screening Representative Relationship Specialty Start Date End Date Casey Berry II, DO PCP - General 11/22/06 08/17/19 Stephani Aleman MD PCP - General Family Medicine 08/18/19 09/16/20 Bianka Loera CNP [address] [place] [id number] PCP - General Nurse Practitioner Family 09/17/2001/10 [place] [address] [place] [phone] PCP - General Electrophysiology 02/23/22 03/09/22 Desiree Patrick MD [address] [facility] [place] [address] 08/09/17 Farrah Nicole APRN,[facility] [address] [place] [place] [address] 08/09/17 Bry Echevarria MD [facility] [place] [address] 08/09/17 Casey Berry II, DO 08/09/17 Shruti Vergara RN RN Registered Nurse 08/27/20 documented as of this encounter Additional Source Comments PLEASE NOTE: Replies to this message will not be received.[facility] and [facility]
--- OUTSIDE RECORDS SUMMARY | 2024-03-09 15:37 | XMS_ITS | Encounter Summary ---
Author Organization [employer] Address [address] [place] [address] Care Team Providers Care Modular Set Crew Member Name Role Phone Jamal CARLISLE DO, Robert William Primary Care Provide r Unavailable Desiree Patrick MD Unavailable Farrah Nicole APRN,HEALTH THERAPIST Unavailable Bry Echevarria MD Unavailable Jamal CARLISLE DO, Robert William Unavailable Unav Stephani Diaz MD Primary Care Provider Shruti Vergara RN Unavailable Unavailable Bianka Loera CNP Primary Care Provider [phone] Desiree aPtrick MD Primary Care P rovider Encounter Details Date Type Department Care Team (Late st Contact Info) Description 10/08/2016 Historical Conversion [facility] Family Medicine [address] [place] [phone] Social History Tobacco Use Types Packs/Day Years [...] as of this encounter Nursing Notes * [facility], GENERICPROVIDER - 10/08/2016 12:00 AM CDT Patient calls triage with complaints of elevated heart rate in the 140's since Wednesday morning. He states that he has taken his prescribed Beta-Blockers multiple times and they have not been helping with the elevated heart rate as they should be. Patient denies any shortness of breath, dizziness, lig htheadedness, chest pain or confusion. Patient instructed by newspaper writer to go to the Emergency Room at [facility] to be evaluated. Patient verbalized understanding of instructions. STACY MCCAULEY Electronically signed by:Tammy Coronado RN Oct 08 2016 8:22AM COMMUNITY RELATIONS REPRESENTATIVE documented in this encounter Plan of Treatment Not on file documented as of this encounter Visit Diagnoses Not on filedocumented in this encounter Care Teams Modular Set Crew Member Relationship Specialty Start Date End Date Casey Berry II, DO PCP - General 11/22/06 08/17/19 Stephani Aleman MD PCP - General Family Medicine 08/18/19 09/16/20 Bianka Loera CNP [address] [facility] [address] [place] [address] PCP - General Nurse Practitioner Family 09/17/2001/10 Desiree Patrick MD [address] [place] [address] PCP - General Electrophysiology 02/23/22 03/09/22 Desiree Patrick MD [address] [place] [address] 08/09/17 Farrah Nicole, BICYCLE INSPECTOR,HEALTH THERAPIST [address] [place] [address] 08/09/17 Bry Echevarria MD [address] [place] [place] [address] 08/09/17 Casey Berry II, DO 08/09/17 Shruti Vergara RN RN Registered Nurse 08/27/20 documented as of this encounter Additional Source Comments PLEASE NOTE: Replies to this message will not be received.[facility] and [facility]
--- OUTSIDE RECORDS SUMMARY | 2024-03-09 15:37 | XMS_ITS | Encounter Summary ---
Author Organization [employer] Address [address] [place] [address] Care Team Providers Care Transcribing Machine Mechanic Name Role Phone Jamal CARLISLE DO, Robert William Primary Care Provide r Unavailable Desiree Patrick MD Unavailable Farrah Nicole APRN,VOLUNTEER MANAGER Unavailable Bry Echevarria MD Unavailable Jamal CARLISLE DO, Robert William Unavailable Unav Stephani Diaz MD Primary Care Provider Shruti Vergara RN Unavailable Unavailable Bianka Loera CNP Primary Care Provider Desiree Patrick MD Primary Care P rovider Encounter Details Date Type Department Care Team (Late st Contact Info) Description 01/31/2016 Historical Conversion [facility] Family Medicine [address] [place] [phone] Social History Tobacco Use Types Packs/Day Years [...] as of this encounter Procedure Notes * [facility] - 01/14/2017 12:00 AM CDTAssociated Order(s): ANTICOAGULATION [facility] Name: CRISTIAN BLEDSOE : 1945 DOS: 01/14/2017 [...] by:Tiffani Carrero RN Jan 14 2017 11:11AM RETAIL SUPPORT MANAGER * [facility] - 12/23/2016 12:00 AM CDTAssociated Order(s): ANTICOAGULATION [facility] Name: CRISTIAN BLEDSOE : 1945 DOS: 12/23/2016 [...] waiting for results. He states that Dr. Crzudicated that he may end up needing a C-Pap. INR tested today is therapeutic at 2.3 with the recommended range of 2.0 to 3.0. Patient will continue Coumadin at 2.5 mg on Wednesdays and 5 mg all other days with an INR recheck in three weeks per patient request. Patient verbalizes understanding. Electronically signed by:Tiffani Carrero RN Dec 23 2016 11:30AM RETAIL SUPPORT MANAGER * [facility], GENERICPROVIDER - 12/02/2016 12:00 AM CDTAssociated Order(s): ANTICOAGULATION [facility] Name: CRISTIAN BLEDSOE : 1945 DOS: 12/02/2016 [...] by:Tiffani Carrero RN Dec 02 2016 4:10PM RETAIL SUPPORT MANAGER * [facility], GENERICPROVIDER - 11/17/2016 12:00 AM CDTAssociated Order(s): ANTICOAGULATION [facility] Name: CRISTIAN BLEDSOE : 1945 DOS: 11/17/2016 [...] has an appointment next week with an schedule clerk to discuss a possible ablation. Patient denies any medication changes. INR tested today is therapeutic at 2.7 with the recommended range of 2.0 to 3.0. Patient will continue Coumadin at 5 mg daily with an INR recheck in two weeks. Patient verbalizes understanding. Electronically signed by:Tiffani Carrero RN Nov 17 2016 9:36AM RETAIL SUPPORT MANAGER * [facility] GENERICPROSeatSwaprDER - 11/10/2016 12:00 AM CDTAssociated Order(s): ANTICOAGULATION [facility] Name: CRISTIAN BLEDSOE : 1945 DOS: 11/10/2016 [...] by:Tiffani Carrero RN Nov 10 2016 2:41PM RETAIL SUPPORT MANAGER * [facility] GENERICPROVIDER - 10/29/2016 12:00 AM CDTAssociated Order(s): ANTICOAGULATION Anticoagulation [facility] Name: CRISTIAN BLEDSOE : 1945 DOS: [...] by:Tiffani Carrero RN Oct 29 2016 3:44PM RETAIL SUPPORT MANAGER * [facility]UST[facility] - 10/23/2016 12:00 AM CDTAssociated Order(s): ANTICOAGULATION [facility] Name: CRISTIAN BLEDSOE : 1945 DOS: 10/23/2016 This is a patient of Dr. Berry. He is taking anticoagulation for a diagnosis of atrial fibrillation.He is scheduled for a prostate biopsy today at the [facility] with Dr. Maloney. Patient had his INR checked in the [facility] lab prior to his procedure [...] by:Tiffani Carrero RN Oct 26 2016 9:49AM RETAIL SUPPORT MANAGER * [facility]USTINPR[facility]UB[facility] - 10/13/2016 12:00 AM CDTAssociated Order(s): ANTICOAGULATION [facility] Name: CRISTIAN BLEDSOE : 1945 DOS: 10/13/2016 [...] will have his INR checked at the [facility] prior to his biopsy which [...] by:Tiffani Carrero RN Oct 13 2016 12:13PM RETAIL SUPPORT MANAGER AMENDMENTS: 1. Patient states that he was in the [facility] ER on October 08 with a [...] by:Tiffani Carrero RN Oct 13 2016 12:36PM RETAIL SUPPORT MANAGER * [facility], GENERICPROLUBNA - 09/15/2016 12:00 AM CSTAssociated Order(s): ANTICOAGULATION Anticoagulation [facility] Name: CRISTIAN BLEDSOE : 1945 DOS: [...] by:Tiffani Carrero RN Sep 15 2016 2:04PM RETAIL SUPPORT MANAGER * [facility] GENER[facility] - 08/18/2016 12:00 AM CSTAssociated Order(s): ANTICOAGULATION [facility]ticoagulation [facility] Name: CRISTIAN BLEDSOE : 1945 DOS: [...] by:Tiffani Carrero RN Aug 18 2016 2:21PM RETAIL SUPPORT MANAGER * [facility] GENERICPROVIBRANDO - 07/28/2016 12:00 AM CSTAssociated Order(s): ANTICOAGULATION [facility]ticoagulation [facility] Name: CRISTIAN BLEDSOE : 1945 DOS: [...] by:Tiffani Carrero RN Jul 28 2016 11:06AM RETAIL SUPPORT MANAGER * [facility], GENERICPROVIDER - 07/14/2016 12:00 AM CSTAssociated Order(s): ANTICOAGULATION Anticoagulation [facility] Name: CRISTIAN BLEDSOE : 1945 DOS: [...] by:Tiffani Carrero RN Jul 14 2016 11:21AM RETAIL SUPPORT MANAGER * [facility], GENERICPROVIBRANDO - 06/30/2016 12:00 AM CSTAssociated Order(s): ANTICOAGULATION Anticoagulation [facility] Name: CRISTIAN BLEDSOE : 1945 DOS: [...] by:Tiffani Carrero RN Jun 30 2016 9:24AM RETAIL SUPPORT MANAGER * [facility] - 05/20/2016 12:00 AM CSTAssociated Order(s): ANTICOAGULATION Anticoagulation [facility] Name: CRISTIAN BLEDSOE : 1945 DOS: [...] by:Tiffani Carrero RN May 20 2016 3:59PM RETAIL SUPPORT MANAGER * [facility] MICHELLEPROGINABRANDO - 04/15/2016 12:00 AM CDTAssociated Order(s): ANTICOAGULATION [facility] Name: CRISTIAN BLEDSOE : 1945 DOS: 04/15/2016 [...] by:Tiffani Carrero RN Apr 15 2016 5:55PM RETAIL SUPPORT MANAGER * [facility] MICHELLEPROVIBRANDO - 03/18/2016 12:00 AM CDTAssociated Order(s): ANTICOAGULATION [facility] Name: CRISTIAN BLEDSOE : 1945 DOS: 03/18/2016 [...] by:Tiffani Carrero RN Mar 18 2016 9:42AM RETAIL SUPPORT MANAGER * [facility]HEL[facility] AUSTINPROLUBNA - 03/09/2016 12:00 [...] Tiffani Carrero RN; Mar 09 2016 9:59AM RETAIL SUPPORT MANAGER * [facility] MICHELLEPROVIBRANDO - 02/27/2016 12:00 AM CDTAssociated Order(s): ANTICOAGULATION [facility] Name: CRISTIAN BLEDSOE : 1945 DOS: 02/27/2016 [...] by:Tiffani Carrero RN Feb 27 2016 12:04PM RETAIL SUPPORT MANAGER * [facility] GENERICPROVIBRANDO - 02/12/2016 12:00 AM CDTAssociated Order(s): ANTICOAGULATION [facility] Name: CRISTIAN BLEDSOE : 1945 DOS: 02/12/2016 [...] by:Tiffani Carrero RN Feb 12 2016 9:02AM RETAIL SUPPORT MANAGER * [facility] GENERICPROVIBRANDO - 02/04/2016 12:00 AM CDTAssociated Order(s): ANTICOAGULATION Anticoagulation [facility] Name: CRISTIAN BLEDSOE : 1945 DOS: [...] by:Tiffani Carrero RN Feb 04 2016 9:45AM RETAIL SUPPORT MANAGER * [facility], GENERICPROVIDER - 01/31/2016 12:00 AM CDTAssociated [...] by:Carlene Hargrove RN Jan 31 2016 2:45PM RETAIL SUPPORT MANAGER documented in this encounter Plan of [...] Results * ANTICOAGULATION (01/14/2017) Narrative Procedure Note [facility], GENERICPROVIDER - 01/14/2017 12:00 AM CDT [facility] Name: CRISTIAN BLEDSOE : 1945 DOS: 01/14/2017 [...] by:Tiffani Carrero RN Jan 14 2017 11:11AM RETAIL SUPPORT MANAGER [facility] OTHER * ANTICOAGULATION (12/23/2016) Narrative Procedure Note [facility], [facility] - 12/23/2016 12:00 AM CDT Anticoagulation [facility] Name: CRISTIAN BLEDSOE : 1945 DOS: 12/23/2016 This is a patient of Dr. Berry. He is here today for an anticoagulationassessment and INR check for a diagnosis of atrial fibrillation. Patientstates that he has been feeling well. He reports that he met with at the [facility] and will begin radiation on January [...] by:Tiffani Carrero RN Dec 23 2016 11:30AM RETAIL SUPPORT MANAGER [facility] OTHER * ANTICOAGULATION (12/02/2016) Narrative Procedure Note [facility] - 12/02/2016 12:00 AM CDT Anticoagulation [facility] Name: CRISTIAN BLEDSOE : 1945 DOS: [...] by:Tiffani Carrero RN Dec 02 2016 4:10PM RETAIL SUPPORT MANAGER [facility] OTHER * ANTICOAGULATION (11/17/2016) Narrative Procedure Note [facility] - 11/17/2016 12:00 AM CDT Anticoagulation [facility] Name: CRISTIAN BLEDSEO : 1945 DOS: 11/17/2016 This is a [...] by:Tiffani Carrero RN Nov 17 2016 9:36AM RETAIL SUPPORT MANAGER [facility] * ANTICOAGULATION (11/10/2016) Narrative Procedure Note [facility] - 11/10/2016 12:00 AM CDT Anticoagulation [facility] Name: CRISTIAN BLEDSOE : 1945 DOS: 11/10/2016 This is a patient of Dr. Berry. He is here today for an anticoagulationassessment and INR check for a diagnosis of atrial fibrillation. Patientstates that he has been feeling well. He reports that he has beendiagnosis with prostate cancer and will be meeting with Dr. Conroy at [facility] to find out information regarding radiation therapy. Patientdenies any medication changes. INR tested today is elevated at 3.6 withthe recommended range of 2.0 to 3.0. Patient will adjust Coumadin with ahold today (11/10), then take 5 mg daily with an INR recheck in one week.Patient verbalizes understanding. Electronically signed by:Tiffani Carrero RN Nov 10 2016 2:41PM RETAIL SUPPORT MANAGER [facility] OTHER * ANTICOAGULATION (10/29/2016) Narrative Procedure Note [facility] - 10/29/2016 12:00 AM CDT Anticoagulation [facility] Name: CRISTIAN BLEDSOE : 1945 DOS: [...] by:Tiffani Carrero RN Oct 29 2016 3:44PM RETAIL SUPPORT MANAGER [facility] OTHER * ANTICOAGULATION (10/23/2016) Narrative Procedure Note [facility] - 10/23/2016 12:00 AM CDT Anticoagulation [facility] Name: CRISTIAN BLEDSOE : 1945 DOS: 10/23/2016 This is a patient of Dr. Berry. He is taking anticoagulation for adiagnosis of atrial fibrillation. He is scheduled for a prostate biopsytoday at the [facility] with Dr. Maloney. Patient had his INR checkedin the [facility] lab prior to his procedure [...] by:Tiffani Carrero RN Oct 26 2016 9:49AM RETAIL SUPPORT MANAGER [facility] OTHER * ANTICOAGULATION (10/13/2016) Narrative Procedure Note [facility] - 10/13/2016 12:00 AM CDT [facility] Name: CRISTIAN BLEDSOE : 1945 DOS: 10/13/2016 [...] [facility] which is scheduled there. Afterprocedure he will follow discharge instructions from Dr. Maloney in regardsto when it is safe to resume Coumadin. Patient will resume at his regulardose of Coumadin at 7.5 mg Wednesday, Wednesday and 5 mg all other days. He willrecheck INR one week after restarting Coumadin. Patient and his wifeverbalize understanding. Electronically signed by:Tiffani Crarero RN Oct 13 2016 12:13PM RETAIL SUPPORT MANAGER AMENDMENTS: 1. Patient states that he was in the [facility] ER on October 08 with arapid [...] by:Tiffani Carrero RN Oct 13 2016 12:36PM RETAIL SUPPORT MANAGER [facility] OTHER * ANTICOAGULATION (09/15/2016) Narrative Procedure Note [facility] - 09/15/2016 12:00 AM CST [facility] Name: CRISTIAN BLEDSOE : 1945 DOS: 09/15/2016 [...] by:Tiffani Carrero RN Sep 15 2016 2:04PM RETAIL SUPPORT MANAGER [facility] OTHER * ANTICOAGULATION (08/18/2016) Narrative Procedure Note [facility] - 08/18/2016 12:00 AM CST Anticoagulation [facility] Name: CRISTIAN BLEDSOE : 1945 DOS: [...] by:Tiffani Carrero RN Aug 18 2016 2:21PM RETAIL SUPPORT MANAGER [facility] OTHER * ANTICOAGULATION (07/28/2016) Narrative Procedure Note [facility] - 07/28/2016 12:00 AM CST Anticoagulation [facility] Name: CRISTIAN BLEDSOE : 1945 DOS: [...] by:Tiffani Carrero RN Jul 28 2016 11:06AM RETAIL SUPPORT MANAGER [facility] OTHER * ANTICOAGULATION (07/14/2016) Narrative Procedure Note [facility] - 07/14/2016 12:00 AM CST Anticoagulation [facility] Name: CRISTIAN BLEDSOE : 1945 DOS: [...] by:Tiffani Carrero RN Jul 14 2016 11:21AM RETAIL SUPPORT MANAGER [facility] OTHER * ANTICOAGULATION (06/30/2016) Narrative Procedure Note [facility] - 06/30/2016 12:00 AM CST Anticoagulation [facility] Name: CRISTIAN BLEDSOE : 1945 DOS: [...] by:Tiffani Carrero RN Jun 30 2016 9:24AM RETAIL SUPPORT MANAGER [facility] OTHER * ANTICOAGULATION (05/20/2016) Narrative Procedure Note [facility] - 05/20/2016 12:00 AM CST Anticoagulation [facility] Name: CRISTIAN BLEDSOE : 1945 DOS: [...] by:Tiffani Carrero RN May 20 2016 3:59PM RETAIL SUPPORT MANAGER [facility] OTHER * ANTICOAGULATION (04/15/2016) Narrative Procedure Note [facility] - 04/15/2016 12:00 AM CDT Anticoagulation [facility] Name: CRISTIAN BLEDSOE : 1945 DOS: [...] by:Tiffani Carrero RN Apr 15 2016 5:55PM RETAIL SUPPORT MANAGER [facility] OTHER * ANTICOAGULATION (03/18/2016) Narrative Procedure Note [facility] - 03/18/2016 12:00 AM CDT Anticoagulation [facility] Name: CRISTIAN BLEDSOE : 1945 DOS: [...] by:Tiffani Carrero RN Mar 18 2016 9:42AM RETAIL SUPPORT MANAGER [facility] OTHER * ANTICOAGULATION (03/09/2016) Narrative Procedure Note [facility] - 03/09/2016 12:00 AM CDT [facility] Comments [...] Tiffani Carrero RN; Mar 09 2016 9:59AMCST [facility] OTHER * ANTICOAGULATION (02/27/2016) Narrative Procedure Note [facility] - 02/27/2016 12:00 AM CDT Anticoagulation [facility] Name: CRISTIAN BLEDSOE : 1945 DOS: [...] by:Tiffani Carrero RN Feb 27 2016 12:04PM RETAIL SUPPORT MANAGER [facility] OTHER * ANTICOAGULATION (02/12/2016) Narrative Procedure Note [facility] - 02/12/2016 12:00 AM CDT Anticoagulation [facility] Name: CRISTIAN BLEDSOE : 1945 DOS: [...] by:Tiffani Carrero RN Feb 12 2016 9:02AM RETAIL SUPPORT MANAGER [facility] OTHER * ANTICOAGULATION (02/04/2016) Narrative Procedure Note [facility] - 02/04/2016 12:00 AM CDT Anticoagulation [facility] Name: CRISTIAN BLEDSOE : 1945 DOS: [...] by:Tiffani Carrero RN Feb 04 2016 9:45AM RETAIL SUPPORT MANAGER [facility] OTHER * ANTICOAGULATION (01/31/2016) Narrative Procedure Note [facility] - 01/31/2016 12:00 AM CDT Name: [...] by:Carlene Hargrove RN Jan 31 2016 2:45PM RETAIL SUPPORT MANAGER [facility] OTHER documented in this encounter Visit Diagnoses Not on filedocumented in this encounter Care Teams Transcribing Machine Mechanic Relationship Specialty Start Date End Date Casey Berry II, DO PCP - General 11/22/06 08/17/19 Stephani Aleman MD PCP - General Family Medicine 08/18/19 09/16/20 Bianka Loera CNP [address] [place] [id number] PCP - General Nurse Practitioner Family 09/17/20 7/2 12/31 Desiree Patrick MD [address] [place] [address] PCP - General Electrophysiology 02/23/22 03/09/22 Desiree Patrick MD [address] [place] [address] 08/09/17 Farrah Nicole APRN,VOLUNTEER MANAGER [address] [place] [address] 08/09/17 Bry Echevarria MD [address] [place] [address] [place] [address] 08/09/17 Casey Berry II, DO 08/09/17 Shruti Vergara, RN RN Registered Nurse 08/27/20 documented as of this encounter Additional Source Comments PLEASE NOTE: Replies to this message will not be received.[facility]
--- OUTSIDE RECORDS SUMMARY | 2024-03-09 15:37 | XMS_ITS | Encounter Summary ---
Author Organization [employer] Address [address] [place] [address] Care Team Providers Care Vertical Punch Operator Name Role Phone Jamal CARLISLE DO, Robert William Primary Care Provide r Unavailable Desiree Patrick MD Unavailable Farrah Nicole APRN,AGENCY CASHIER Unavailable Bry Echevarria MD Unavailable Jamal CARLISLE DO, Robert William Unavailable Unav Stephani Diaz MD Primary Care Provider Shruti Vergara RN Unavailable Unavailable Bianka Loera CNP Primary Care Provider [phone] Desiree Patrick MD Primary Care P rovider Encounter Details Date Type Department Care Team (Late st Contact Info) Description 11/30/2016 Historical Conversion [facility] Family Medicine [address] [place] [id number] Casey Berry II, DO Social History Tobacco [...] on filedocumented in this encounter Care Teams Vertical Punch Operator Relationship Specialty Start Date End Date Casey Berry II, DO PCP - General 11/22/06 08/17/19 Stephani Aleman MD PCP - General Family Medicine 08/18/19 09/16/20 Bianka Loera CNP [address] [place] [address] [address] [place] [phone] PCP - General Nurse Practitioner Family 09/17/2001/10 [place] [address] [place] [address] PCP - General Electrophysiology 02/23/22 03/09/22 Desiree Patrick MD [address] [place] [address] 08/09/17 Farrah Nicole APRN,AGENCY CASHIER [address] [place] [place] [address] 08/09/17 Bry Echevarria MD [facility] [place] [address] 08/09/17 Casey Berry II, DO 08/09/17 Shruti Vergara RN RN Registered Nurse 08/27/20 documented as of this encounter Additional Source Comments PLEASE NOTE: Replies to this message will not be received.[facility]
--- OUTSIDE RECORDS SUMMARY | 2024-03-09 15:37 | XMS_ITS | Encounter Summary ---
Author Organization [employer] Address [address] [place] [address] Care Team Providers Care Building Superintendent Name Role Phone Jamal CARLISLE DO, Robert William Primary Care Provide r Unavailable Desiree Patrick MD Unavailable Farrah Nicole APRN,HAM PASSER Unavailable Bry Echevarria MD Unavailable [phone] Jamal CARLISLE DO, Robert William Unavailable Unav Stephani Diaz MD Primary Care Provider Shruti Vergara RN Unavailable Unavailable Bianka Loera CNP Primary Care Provider [phone] Desiree Patrick MD Primary Care P rovider Encounter Details Date Type Department Care Team (Late st Contact Info) Description 01/28/2016 Historical Conversion [facility] Family Medicine [address] [place] [address] Social History Tobacco Use Types Packs/Day Years [...] as of this encounter Procedure Notes * [facility], GENERICPROVIDER - 01/28/2016 12:00 AM CDTAssociated Order(s): ANTICOAGULATION Name: CRISTIAN BELDSOE : 1945 DOS: 01/28/2016 Cristian ia a [...] daily, Reglan 5 mg TID PRN, and [id number] mg BID for pain in right knee. [...] by:Razia Duarte RN Jan 28 2016 12:46PM BATTER SCALER documented in this encounter Plan of Treatment Not on file documented as of this encounter Procedures Procedure Name Priority Date/Time Associated Diagnosis Comments ANTICOAGULATION 01/28/2016 documented in this encounter Results * ANTICOAGULATION (01/28/2016) Narrative Procedure Note [facility], GENERICPROVIDER - 01/28/2016 12:00 AM CDT Name: CRISTIAN WILKINSN: [id number] : 1945 DOS: 01/28/2016 Cristian ia a [...] and approximately 200 lbs. [facility] bleeding or stroke. He [...] summer as he is apart of a [place]. Drinks green tea onoccasion; encouraged to avoid [...] by:Razia Duarte RN Jan 28 2016 12:46PM BATTER SCALER Genericprovider [facility] OTHER documented in this encounter Visit Diagnoses Not on filedocumented in this encounter Care Teams Building Superintendent Relationship Specialty Start Date End Date Casey Berry II, DO PCP - General 11/22/06 08/17/19 Stephani Aleman MD PCP - General Family Medicine 08/18/19 09/16/20 Bianka Loera REFINED SYRUP OPERATOR [address] [place] [phone] PCP - General Nurse Practitioner Family 09/17/2001/10 Desiree Patrick MD [address] [place] [place] [address] PCP - General Electrophysiology 02/23/22 03/09/22 Desiree Patrick MD [address] [place] [place] [address] 08/09/17 Farrah Nicole APRN,HAM PASSER [address] [place] [place] [address] 08/09/17 Bry Echevarria MD [address] [place] [address] 08/09/17 Casey Berry II, DO 08/09/17 Shruti Vergara RN RN Registered Nurse 08/27/20 documented as of this encounter Additional Source Comments PLEASE NOTE: Replies to this message will not be received.[facility] and [facility]
--- OUTSIDE RECORDS SUMMARY | 2024-03-09 15:37 | XMS_ITS | Encounter Summary ---
Author Organization [employer] Address [address] [place] [address] Care Team Providers Care Personal Care Aid Name Role Phone Jamal CARLISLE DO, Robert William Primary Care Provide r Unavailable Desiree Patrick MD Unavailable Farrah Nicole APRN,SERVICE DESK TECHNICIAN Unavailable [phone] Bry Echevarria MD Unavailable Jamal CARLISLE DO, Robert William Unavailable Unav xiable Stephani Aleman MD Primary Care Provider Shruti Vergara RN Unavailable Unavailable Bianka Loera CNP Primary Care Provider Desiree Patrick MD Primary Care P rovider Encounter Details Date Type Department Care Team (Late st Contact Info) Description 10/09/2016 Historical Conversion [facility] Family Medicine [address] [facility] [place] [address] Jaan Aleman APRN,INVESTIGATOR UTILITY BILL COMPLAINTS [address] [place] [address] Social History Tobacco Use [...] this encounter Progress Notes * Jana Aleman, SOIL SCIENCE TECHNICAL OFFICER,INVESTIGATOR UTILITY BILL COMPLAINTS - 10/09/2016 12:00 AM CDT Assessment 1. [...] [facility] He is instructed to return should his [...] Thao Phone Number to Contact Patient: : [phone] to Provider, Practice or Agency: : Either Shanda Mark or [facility] Reason For Visit Patient in [...] 1 TABLET BY MOUTH ONCE DAILY; Therapy: [id number] to (Evaluate:[id number]) Requested for: 13Jul2016; Last Rx:13Jul2016 Ordered 3. Metoclopramide HCl - 5 MG Oral Tablet; TAKE 1 TABLET as needed; Therapy: 10Sep2014 to Requested for: [id number] Recorded 4. Metoprolol Tartrate 25 MG Oral Tablet; 1 prn a fib; Therapy: (Recorded:[id number]) to Requested for: [id number] Recorded 5. Tylenol Extra Strength 500 MG Oral Tablet; Therapy: (Recorded:[id number]) to Recorded 6. Warfarin Sodium 5 MG Oral Tablet; Take as directed by [facility]; Therapy: [id number] to (Evaluate:[id number]) Requested for: 14Jul2016 Recorded Allergies 1. Penicillins [...] RN CNP RN,NIKKI; Oct 18 2016 1:54PM DRINK BOX MECHANIC Electronically signed by : Casey Berry DO; Oct 22 2016 1:20PM DRINK BOX MECHANIC documented in this encounter Plan of Treatment Not on file documented as of this encounter Visit Diagnoses Not on filedocumented in this encounter Care Teams Personal Care Aid Relationship Specialty Start Date End Date Casey Berry II, DO PCP - General 11/22/06 08/17/19 Stephani Aleman MD PCP - General Family Medicine 08/18/19 09/16/20 Bianka Loera CNP [address] [facility] [address] [place] [address] PCP - General Nurse Practitioner Family 09/17/20 712/31 [place] [address] [place] [address] [place] [address] PCP - General Electrophysiology 02/23/22 03/09/22 Desiree Patrick MD [address] [place] [address] 08/09/17 Farrah Nicole, SOIL SCIENCE TECHNICAL OFFICER,SERVICE DESK TECHNICIAN [address] [place] [address] 08/09/17 Bry Echevarria MD [address] [place] [address] [place] [address] 08/09/17 Casey Berry II, DO 08/09/17 Shruti Vergara RN RN Registered Nurse 08/27/20 documented as of this encounter Additional Source Comments PLEASE NOTE: Replies to this message will not be received.[facility] and [facility]
--- OUTSIDE RECORDS SUMMARY | 2024-03-09 15:37 | XMS_ITS | Encounter Summary ---
Author Organization [employer] Address [address] [place] [address] Care Team Providers Care Music Writer Name Role Phone Jamal CARLISLE DO, Robert William Primary Care Provide r Unavailable Desiree Patrick MD Unavailable Farrah Nicole APRN,STARS ANALYTICAL LEAD Unavailable Bry Echevarria MD Unavailable Jamal CARLISLE DO, Robert William Unavailable Unav Stephani Diaz MD Primary Care Provider Shruti Vergara RN Unavailable Unavailable Bianka Loera CNP Primary Care Provider Desiree Patrick MD Primary Care P rovider Encounter Details Date Type Department Care Team (Late st Contact Info) Description 02/11/2016 Historical Conversion [facility] Family Medicine [address] [place] [address] Moon Maloney MD Social History Tobacco Use [...] filedocumented in this encounter Care Teams Music Writer Relationship Specialty Start Date End Date Casey Berry II, DO PCP - General 11/22/06 08/17/19 Stephani Aleman MD PCP - General Family Medicine 08/18/19 09/16/20 Bianka Loera CNP [address] [place] [phone] PCP - General Nurse Practitioner Family 09/17/2001/10 [place] [address] [place] [address] PCP - General Electrophysiology 02/23/22 03/09/22 Desiree Patrick MD [address] [place] [address] 08/09/17 Farrah Nicole APRN,[facility] [address] [place] [address] 08/09/17 Bry Echevarria MD [facility] [place] [address] 08/09/17 Casey Berry II, DO 08/09/17 Shruti Vergara RN RN Registered Nurse 08/27/20 documented as of this encounter Additional Source Comments PLEASE NOTE: Replies to this message will not be received.[facility] and [facility]
--- OUTSIDE RECORDS SUMMARY | 2024-03-09 15:37 | XMS_ITS | Encounter Summary ---
Author Organization [employer] Address [address] [place] [address] Care Team Providers Care Controller Coal Or Ore Name Role Phone Jamal CARLISLE DO, Robert William Primary Care Provide r Unavailable Desiree Patrick MD Unavailable Farrah Nicole APRN,BRASS POURER Unavailable Bry Echevarria MD Unavailable Jamal CARLISLE DO, Robert William Unavailable Unav Stephani Diaz MD Primary Care Provider Shruti Vergara RN Unavailable Unavailable Bianka Loera CNP Primary Care Provider Desiree Patrick MD Primary Care P rovider Encounter Details Date Type Department Care Team (Late st Contact Info) Description 12/31/2016 Historical Conversion [facility] Family Medicine [address] [facility] [place] [address] Desiree Rubi PAC [address] [place] [address] Social History Tobacco Use Types [...] CST UROLOGY CRISTIAN LADI : 1945 HX: [id number] DOS: 08/31/2017 HISTORY OF PRESENT ILLNESS: Anurag [...] 2% of the specimen. 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 Also at thermclaren caro region apex it was a Dexter 7 cancer involving 5% of the specimen. [...] treatment. 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 He had beenon Lupron for [...] Mare Rubi P.A.-C./ cc: Dr. Moon Maloney [facility] [place] [facility] Radiation Therapy Dept Dr. Casey Berry [facility] [place] Electronically signed by:Desiree Rubi PA-C Apr 02 2017 1:20PM PEOPLESOFT ANALYST * Desiree Rubi - 12/31/2016 12:00 AM CDT UROLOGY CRISTIAN BLEDSOE : 1945 HX: [id number] DOS: 12/31/2016 HISTORY OF PRESENT ILLNESS: 71-year-old male who presents to the Urology clinic today. Hehad a velocity change with his PSA. On his prostate exam he had a rubbery nodularity on both sides.It was a symmetrical prostate. His PSA was monitored for a little while. In August he had a ESTHETICIAN FACIALIST 3test and that came back positive. He was brought back for a prostate biopsy October 23, 2016. 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 He hadGleason 7 cancer at the left mid prostate involving less than 5% of the tissue. The right mid prostate he had a Dexter 7 cancer involving 20% of the specimen [...] Rubi P.A.-C./anna 28 cc: Dr. Moon Maloney [facility] [place] [facility] Dr. Casey Berry [facility] [place] Electronically signed by:Desiree Rubi PA-C Jan 06 2017 4:31PM PEOPLESOFT ANALYST Author documented in this encounter Plan of Treatment Not on file documented as of this encounter Visit Diagnoses Not on filedocumented in this encounter Care Teams Controller Coal Or Ore Relationship Specialty Start Date End Date Casey Berry II, DO PCP - General 11/22/06 08/17/19 Stephani Aleman MD PCP - General Family Medicine 08/18/19 09/16/20 Bianka Loera CNP [address] [place] [phone] PCP - General Nurse Practitioner Family 09/17/20 712/31 Desiree Patrick MD [address] [place] [address] PCP - General Electrophysiology 02/23/22 03/09/22 Desiree Patrick MD [address] [place] [address] 08/09/17 Farrah Nicole APRN,BRASS POURER [address] [place] [address] 08/09/17 Bry Echevarria MD [address] [place] [address] 08/09/17 Casey Berry II, DO 08/09/17 Shruti Vergara, RN RN Registered Nurse 08/27/20 documented as of this encounter Additional Source Comments PLEASE NOTE: Replies to this message will not be received.[facility] and [facility]
--- OUTSIDE RECORDS SUMMARY | 2024-03-09 15:37 | XMS_ITS | Encounter Summary ---
Author Organization [employer] Address [address] [place] [address] Care Team Providers Care Division Sales Manager Name Role Phone Jamal CARLISLE DO, Robert William Primary Care Provide r Unavailable Desiree Patrick MD Unavailable Farrah Nicole APRN,ROTOR BLADE INSTALLER Unavailable Bry Echevarria MD Unavailable [phone] Jamal CARLISLE DO, Robert William Unavailable Unav Stephani Diaz MD Primary Care Provider [phone] Shruti Vergara RN Unavailable Unavailable Bianka Loera CNP Primary Care Provider [phone] Desiree Patrick MD Primary Care P rovider Encounter Details Date Type Department Care Team (Late st Contact Info) Description 10/17/2016 Historical Conversion [facility] Family Medicine [address] [place] [address] Social History Tobacco Use Types Packs/Day Years [...] do you have serious difficulty hearing? Yes-slightly TELIDA 10/17/2016 Are you blind or do you [...] filedocumented in this encounter Care Teams Division Sales Manager Relationship Specialty Start Date End Date Casey Berry II, DO PCP - General 11/22/06 08/17/19 Stephani Aleman MD PCP - General Family Medicine 08/18/19 09/16/20 Bianka Loera CNP [address] [place] [phone] PCP - General Nurse Practitioner Family 09/17/2001/10 [place] [address] [place] [address] PCP - General Electrophysiology 02/23/22 03/09/22 Desiree Patrick MD [address] [place] [place] [facility] [address] 08/09/17 Farrah Nicole APRN,[facility] [address] [place] [address] 08/09/17 Bry Echevarria MD [address] [place] [address] [place] [address] 08/09/17 Casey Berry II, DO 08/09/17 Shruti Vergara RN RN Registered Nurse 08/27/20 documented as of this encounter Additional Source Comments PLEASE NOTE: Replies to this message will not be received.[facility] and [facility]
--- OUTSIDE RECORDS SUMMARY | 2024-03-09 15:37 | XMS_ITS | Encounter Summary ---
Author Organization [employer] Address [address] [place] [address] Care Team Providers Care Wire Border Assembler Name Role Phone Jamal CARLISLE DO, Robert William Primary Care Provide r Unavailable Desiree Patrick MD Unavailable Farrah Nicole APRN,FIELD MARKETING LEAD Unavailable [phone] Bry Echevarria MD Unavailable Jamal CARLISLE DO, Robert William Unavailable Unav Stephani Diaz MD Primary Care Provider Shruti Vergara RN Unavailable Unavailable Bianka Loera CNP Primary Care Provider Desiree Patrick MD Primary Care P rovider Encounter Details Date Type Department Care Team (Late st Contact Info) Description 12/01/2016 Historical Conversion [facility] Family Medicine [address] [place] [address] Moon Maloney MD Social History Tobacco Use [...] filedocumented in this encounter Care Teams Wire Border Assembler Relationship Specialty Start Date End Date Casey Berry II, DO PCP - General 11/22/06 08/17/19 Stephani Aleman MD PCP - General Family Medicine 08/18/19 09/16/20 Bianka Loera CNP [address] [place] [address] 2 [place] [phone] PCP - General Nurse Practitioner Family 09/17/2001/10 [place] [address] [place] [phone] PCP - General Electrophysiology 02/23/22 03/09/22 Desiree Patrick MD [address] [place] [address] 08/09/17 Farrah Nicole APRN,FIELD MARKETING LEAD [address] [place] [address] 08/09/17 Bry Echevarria MD [address] [place] [address] 08/09/17 Casey Berry II, DO 08/09/17 Shruti Vergara RN RN Registered Nurse 08/27/20 documented as of this encounter Additional Source Comments PLEASE NOTE: Replies to this message will not be received.[facility] and [facility]
--- OUTSIDE RECORDS SUMMARY | 2024-03-09 15:37 | XMS_ITS | Encounter Summary ---
Author Organization [employer] Address [address] [place] [address] Care Team Providers Care It Specialist Name Role Phone Jamal CARLISLE DO, Robert William Primary Care Provide r Unavailable Desiree Patrick MD Unavailable Farrah Nicole APRN,ALL PURPOSE CLERK Unavailable Bry Echevarria MD Unavailable Jamal CARLISLE DO, Robert William Unavailable Unav Stephani Diaz MD Primary Care Provider Shruti Vergara RN Unavailable Unavailable Bianka Loera CNP Primary Care Provider [phone] Desiree Patrick MD Primary Care P rovider Encounter Details Date Type Department Care Team (Late st Contact Info) Description 08/27/2016 Historical Conversion [facility] Family Medicine [address] [place] [address] Moon Maloney MD Social History Tobacco Use [...] Comments Blood Pressure 175/101 08/27/2016 12:00 AM SOILS ANALYST Pulse - - Temperature - - Respiratory Rate - - Oxygen Saturation - - Inhaled Oxygen Concentration - - Weight 95.7 kg (210 lb 15.7 oz) 017 12:00 AM SOILS ANALYST Height - - Body Mass Index 27.84 [...] filedocumented in this encounter Care Teams It Specialist Relationship Specialty Start Date End Date Casey Berry II, DO PCP - General 11/22/06 08/17/19 Stephani Aleman MD PCP - General Family Medicine 08/18/19 09/16/20 Bianka Loera CNP [address] [place] [phone] PCP - General Nurse Practitioner Family 09/17/2001/10 [place] [address] [place] [address] PCP - General Electrophysiology 02/23/22 03/09/22 Desiree Patrick MD [address] [facility] [place] [address] 08/09/17 Farrah Nicole APRN,[facility] [address] [place] [address] 08/09/17 Bry Echevarria MD [address] [place] [address] [place] [address] 08/09/17 Casey Berry II, DO 08/09/17 Shruti Vergara RN RN Registered Nurse 08/27/20 documented as of this encounter Additional Source Comments PLEASE NOTE: Replies to this message will not be received.[facility] and [facility]
--- OUTSIDE RECORDS SUMMARY | 2024-03-09 15:37 | XMS_ITS | Encounter Summary ---
Author Organization [employer] Address [address] [place] [address] Care Team Providers Care Lubrication Worker Name Role Phone Jamal CARLISLE DO, Robert William Primary Care Provide r Unavailable Desiree Patrick MD Unavailable Farrah Nicole APRN,SENIOR HUMAN RESOURCES REPRESENTATIVE Unavailable [phone] Bry Echevarria MD Unavailable Jamal CARLISLE DO, Robert William Unavailable Unav Stephani Diaz MD Primary Care Provider Shruti Vergara RN Unavailable Unavailable Bianka Loera CNP Primary Care Provider Desiree Patrick MD Primary Care P rovider Encounter Details Date Type Department Care Team (Late st Contact Info) Description 12/11/2015 Historical Conversion [facility] Family Medicine [address] [place] [address] Casey Berry II, DO Social History Tobacco [...] on filedocumented in this encounter Care Teams Lubrication Worker Relationship Specialty Start Date End Date Casey Berry II, DO PCP - General 11/22/06 08/17/19 Stephani Aleman MD PCP - General Family Medicine 08/18/19 09/16/20 Bianka Loera CNP [address] [place] [phone] PCP - General Nurse Practitioner Family 09/17/2001/10 [place] [address] [place] [address] PCP - General Electrophysiology 02/23/22 03/09/22 Desiree Patrick MD [address] [place] [address] 08/09/17 Farrah Nicole APRN,[facility] [address] [place] [address] 08/09/17 Bry Echevarria MD [address] [place] [address] [place] [address] 08/09/17 Casey Berry II, DO 08/09/17 Shruti Vergara RN RN Registered Nurse 08/27/20 documented as of this encounter Additional Source Comments PLEASE NOTE: Replies to this message will not be received.[facility]
--- OUTSIDE RECORDS SUMMARY | 2024-03-09 15:37 | XMS_ITS | Encounter Summary ---
Author Organization [employer] Address [address] [place] [address] Care Team Providers Care Bilingual Recruiter Name Role Phone Jamal CARLISLE DO, Robert William Primary Care Provide r Unavailable Desiree Patrick MD Unavailable Farrah Nicole APRN,COMPLIANCE AND CONTROL ANALYST Unavailable Bry Echevarria MD Unavailable Jamal CARLISLE DO, Robert William Unavailable Unav Stephani Diaz MD Primary Care Provider Shruti Vergara RN Unavailable Unavailable Bianka Loera CNP Primary Care Provider Desiree Patrick MD Primary Care P rovider Encounter Details Date Type Department Care Team (Late st Contact Info) Description 06/24/2016 Historical Conversion [facility] Family Medicine [address] [place] [address] Casey Berry II, DO Social History Tobacco [...] Comments Blood Pressure 115/76 06/24/2016 12:00 AM WARNING ANALYST Pulse - - Temperature - - Respiratory Rate - - Oxygen Saturation - - Inhaled Oxygen Concentration - - Weight 91.5 kg (201 lb 11.5 oz) 016 12:00 AM WARNING ANALYST Height - - Body Mass Index 26.61 [...] on filedocumented in this encounter Care Teams Bilingual Recruiter Relationship Specialty Start Date End Date Casey Berry II, DO PCP - General 11/22/06 08/17/19 Stephani Aleman MD PCP - General Family Medicine 08/18/19 09/16/20 Bianka Loera CNP [address] [place] [phone] PCP - General Nurse Practitioner Family 09/17/2001/10 Desiree Patrick MD [address] [place] [address] PCP - General Electrophysiology 02/23/22 03/09/22 Desiree Patrick MD [address] [place] [place] [facility] [place] [address] 08/09/17 Farrah Nicole APRN,COMPLIANCE AND CONTROL ANALYST [address] [place] [address] 08/09/17 Bry Echevarria MD [address] [place] [address] [place] [address] 08/09/17 Casey Berry II, DO 08/09/17 Shruti Vergara RN RN Registered Nurse 08/27/20 documented as of this encounter Additional Source Comments PLEASE NOTE: Replies to this message will not be received.[facility] and [facility]
--- OUTSIDE RECORDS SUMMARY | 2024-03-09 15:37 | XMS_ITS | Encounter Summary ---
Author Organization [employer] Address [address] [place] [address] Care Team Providers Care Process Description Writer Name Role Phone Jamal CARLISLE DO, Robert William Primary Care Provide r Unavailable Desiree Patrick MD Unavailable Farrah Nicole APRN,SACK LIFTER Unavailable [phone] Bry Echevarria MD Unavailable Jamal CARLISLE DO, Robert William Unavailable Unav Stephani Diaz MD Primary Care Provider [phone] Shruti Vergara RN Unavailable Unavailable Bianka Loera CNP Primary Care Provider Desiree Patrick MD Primary Care P rovider Encounter Details Date Type Department Care Team (Late st Contact Info) Description 11/06/2016 Historical Conversion [facility] Family Medicine [address] [place] [address] Moon Maloney MD Social History Tobacco Use [...] on filedocumented in this encounter Care Teams Process Description Writer Relationship Specialty Start Date End Date Casey Berry II, DO PCP - General 11/22/06 08/17/19 Stephani Aleman MD PCP - General Family Medicine 08/18/19 09/16/20 Bianka Loera CNP [address] [place] [address] 2 [place] [phone] PCP - General Nurse Practitioner Family 09/17/2001/10 Desiree Patrick MD [address] [place] [address] PCP - General Electrophysiology 02/23/22 03/09/22 Desiree Patrick MD [address] [place] [address] 08/09/17 Farrah Nicole APRN,SACK LIFTER [address] [place] [address] 08/09/17 Bry Echevarria MD [address] [place] [address] 08/09/17 Casey Berry II, DO 08/09/17 Shruti Vergara RN RN Registered Nurse 08/27/20 documented as of this encounter Additional Source Comments PLEASE NOTE: Replies to this message will not be received.[facility]
--- OUTSIDE RECORDS SUMMARY | 2024-03-09 15:37 | XMS_ITS | Encounter Summary ---
Author Organization [employer] Address [address] [place] [address] Care Team Providers Care Hand Cultivator Name Role Phone Jamal CARLISLE DO, Robert William Primary Care Provide r Unavailable Desiree Patrick MD Unavailable Farrah Nicole APRN,HAND SPLITTER Unavailable Bry Echevarria MD Unavailable Jamal CARLISLE DO, Robert William Unavailable Unav Stephani Diaz MD Primary Care Provider Shruti Vergara RN Unavailable Unavailable Bianka Loera CNP Primary Care Provider Desiree Patrick MD Primary Care P rovider Encounter Details Date Type Department Care Team (Late st Contact Info) Description 10/17/2016 Historical Conversion [facility] Family Medicine [address] [place] [address] Social History Tobacco Use Types Packs/Day Years [...] do you have serious difficulty hearing? Yes-slightly [place] 10/17/2016 Are you blind or do you [...] as of this encounter Nursing Notes * [facility], GENERICPROVIDER - 10/17/2016 12:00 AM CDT Rohan presented to Urgent Care with complaint of feeling like his heart is racing, he can feel it pounding and a tighness in his chest occurs when this happens. He was seen at [facility] 10 days ago for an [...] to be evaluatedin the Emergency Room at [facility]. Patient and his elected to go by private car with patients driving. Electronically signed by:Tammy Coronado RN Oct 17 2016 2:09PM CELLULOSE INSULATION HELPER AMENDMENTS: 1. Patient declines shortness of breath, radiating neck pain, shoulderblade pain or sternal pain. Electronically signed by:Tammy Coronado RN Oct 17 2016 2:14PM CELLULOSE INSULATION HELPER documented in this encounter Plan of Treatment Not on file documented as of this encounter Visit Diagnoses Not on filedocumented in this encounter Care Teams Hand Cultivator Relationship Specialty Start Date End Date Casey Berry II, DO PCP - General 11/22/06 08/17/19 Stephani Aleman MD PCP - General Family Medicine 08/18/19 09/16/20 Bianka Loera CNP [address] [place] [address] PCP - General Nurse Practitioner Family 09/17/2001/10 Desiree Patrick MD [address] [place] [address] PCP - General Electrophysiology 02/23/22 03/09/22 Desiree Patrick MD [address] [place] [address] 08/09/17 Farrah Nicole APRN,HAND SPLITTER [address] [place] [address] 08/09/17 Bry Echevarria MD [address] [place] [phone] 08/09/17 Casey Berry II, DO 08/09/17 Shruti Vergara, RN RN Registered Nurse 08/27/20 documented as of this encounter Additional Source Comments PLEASE NOTE: Replies to this message will not be received.[facility] and [facility]
--- OUTSIDE RECORDS SUMMARY | 2024-03-09 15:37 | XMS_ITS | Encounter Summary ---
Author Organization [employer] Address [address] [place] [address] Care Team Providers Care Dispatch Lead Name Role Phone Jamal CARLISLE DO, Robert William Primary Care Provide r Unavailable Desiree Patrick MD Unavailable Farrah Nicole APRN,TASSEL CLIPPER Unavailable Bry Echevarria MD Unavailable Jamal CARLISLE DO, Robert William Unavailable Unav Stephani Diaz MD Primary Care Provider Shruti Vergara RN Unavailable Unavailable Bianka Loera CNP Primary Care Provider Desiree Patrick MD Primary Care P rovider Encounter Details Date Type Department Care Team (Late st Contact Info) Description 09/02/2016 Historical Conversion [facility] Family Medicine [address] [place] [address] Casey El II, DO Social History Tobacco [...] Comments Blood Pressure 151/81 09/02/2016 12:00 AM CONCRETE ROD BUSTER Pulse - - Temperature - - Respiratory Rate - - Oxygen Saturation - - Inhaled Oxygen Concentration - - Weight 93.5 kg (206 lb 2.1 oz) 09/02/2016 12:00 AM CONCRETE ROD BUSTER Height 185.1 cm (6' 0.87) 09/02/2016 12:00 AM Saúl WARE Body Mass Index 27.29 09/02/2016 12:00 AM CONCRETE ROD BUSTER documented in this encounter Functional Status Functional [...] as needed; Therapy: 10Sep2014 to Requested for: 46Rlf5903 Recorded 7. Metoprolol Tartrate 50 MG Oral Tablet; TAKE 1 TABLET TWICE DAILY; Therapy: (Recorded:21Oct2016) to Recorded 8. Tylenol Extra Strength 500 MG Oral Tablet; Therapy: (Recorded:18Nov2015) to Recorded 9. Warfarin Sodium 5 MG Oral Tablet; Take as directed by [facility]; Therapy: 39Gqo7331 to (Evaluate:82Pmk8896) Requested for: 78Jkf3416; Last Rx:95Iko6413 Ordered Allergies 1. Penicillins 2. Sulfa Drugs [...] Casey El DO; Apr 16 2017 8:13AM CONCRETE ROD BUSTER * Casey El II, DO - 11/30/2016 [...] healthy by no longer smoking.; Status:Complete; Done: 01Alm7368 Counseling Total time of encounter was 20 [...] first. At this point in time, the Molecular Genetic Pathologist has not stated that he a risk [...] as needed; Therapy: 10Sep2014 to Requested for: 46Hsg5217 Recorded 4. Metoprolol Tartrate 50 MG Oral Tablet; TAKE 1 TABLET TWICE DAILY; Therapy: (Recorded:21Oct2016) to Recorded 5. Tylenol Extra Strength 500 MG Oral Tablet; Therapy: (Recorded:18Nov2015) to Recorded 6. Warfarin Sodium 5 MG Oral Tablet; Take as directed by [facility]; Therapy: 55Qbw9102 to (Evaluate:12Nov2017) Requested for: 17Nov2016 Recorded Allergies 1. Penicillins 2. Sulfa Drugs Vitals Recorded: 30Nov2016 10:12AM Systolic 121 Diastolic 83 Heart Rate 106 Respiration 20 Temperature 98 F Weight 94.2 kg BMI Calculated 27.49 BSA Calculated 2.18 O2 Saturation 97 Physical Exam Deferred. Signatures Casey El II, D.OWilliam/pj-30 Electronically signed by : Casey El DO; Dec 09 2016 1:14PM CONCRETE ROD BUSTER * Casey El II, DO - 10/26/2016 12:00 AM CDT Assessment 1. Former smoker: 0 - 10 pack years (V15.82) (Z87.891) Atrial fibrillation/flutter. Plan Awaiting Holter monitor to see what is going to be done next with the Molecular Genetic Pathologist and most likely,Electrophysiology. We finally did get the results from the Holter which showed flutter and they will send him to see the Geology Scientist. Reason For Visit patient in for hospital [...] Extra Strength 500 MG Oral Tablet; Therapy: (Recorded:34Vff5455) to Recorded 6. Warfarin Sodium 5 MG Oral Tablet; Take as directed by [facility]; Therapy: 91Dac8758 to (Evaluate:61Loy5960) Requested for: 14Jul2016 Recorded Allergies 1. Penicillins 2. Sulfa Drugs Vitals Recorded: 09Mbx5872 10:40AM Systolic 117, RUE, Sitting Diastolic 73, [...] sounds, change in tactile fremitus. Signatures Casey lE II, DWilliamOWilliam/pj-24 Electronically signed by : Casey El DO; Nov 06 2016 8:45AM CONCRETE ROD BUSTER documented in this encounter H&P Notes * [...] Panel; Status:Hold For - Manual Activation; Requested for:27Vop3905; Hemoglobin A1C; Status:Hold For - Manual Activation; Requested for:44Jvt3203; SocHx: Former smoker: 0 - 10 pack years Former Smoker: Since tobacco use can have significant health risks, you are helping yourself and others stay healthy by no longer smoking.; Status:Complete; Done: 44Nlp7481 Reason For Visit H & P History [...] alcohol. 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 Colonoscopy in 2009. Pneumovax 2009. Prevnar 2015. Current Meds 1. Lisinopril 10 MG Oral Tablet; TAKE 1 TABLET BY MOUTH ONCE DAILY; Therapy: 08Lsf5232 to (Evaluate:05Aer6932) Requested for: 13Jul2016; Last Rx:13Jul2016 Ordered 2. Metoclopramide HCl - 5 MG Oral Tablet; TAKE 1 TABLET as needed; Therapy: 10Sep2014 to Requested for: 02Sep2016 Recorded 3. Metoprolol Tartrate 25 MG Oral Tablet; 1 prn a fib; Therapy: (Recorded:02Sep2016) to Requested for: 02Sep2016 Recorded 4. Tylenol Extra Strength 500 MG Oral Tablet; Therapy: (Recorded:01Eyb1315) to Recorded 5. Warfarin Sodium 5 MG Oral Tablet; Take as directed by [facility]; Therapy: 28Jan2016 to (Evaluate:39Zeo5964) Requested for: 14Jul2016 Recorded Allergies 1. Penicillins [...] rash. /RECTAL: Done by urology. Results/Data PHQ-9 09Xvu5388 12:00AM Casey El Test Name Result Flag Reference PHQ-9 0 Alcohol & Drug Questionnaire for Adults 93Egj2383 12:00AM Casey El Test Name Result Flag Reference Alcohol & Drug Questionnaire for Adults 3 Nurse Note Pt given heel cups by dr el. #05748 qty 2. [place] juvenile corrections officer Recorded as Task Date: 09/14/2016 01:01 PM, [...] if you have any questions! Cherelle Gomez [facility] #[id number] Kelly Walls - 15 Sep 2016 7:16 AM TASK REASSIGNED: Previously Assigned To Kelly Walls Michelle - 15 Sep 2016 9:00 AM TASK REASSIGNED: Previously Assigned To Casey El per dr el- dx plantar fasciitis M72.2 thanks. [place] juvenile corrections officer Signatures Casey El II D.Veena/la-3 Electronically signed by : Casey El DO; Sep 11 2016 1:25PM CONCRETE ROD BUSTER Electronically signed by : Casey El DO; Sep 16 2016 12:34PM CONCRETE ROD BUSTER documented in this encounter Plan of Treatment Not on file documented as of this encounter Visit Diagnoses Not on filedocumented in this encounter Care Teams Dispatch Lead Relationship Specialty Start Date End Date Casey El II, DO PCP - General 11/22/06 08/17/19 Stephani Aleman MD PCP - General Family Medicine 08/18/19 09/16/20 Bianka Loera STALLION MANAGER [address] [facility] [address] [place] [address] PCP - General Nurse Practitioner Family 09/17/20 7/2 12/31 Desiree Patrick MD [address] [place] [address] PCP - General Electrophysiology 02/23/22 03/09/22 Desiree Patrick MD [address] [place] [address] 08/09/17 Farrah Nicole APRN,TASSEL CLIPPER [address] [place] [address] 08/09/17 Bry Echevarria MD [address] [place] [address] [place] [address] 08/09/17 Casey El II, DO 08/09/17 Shruti Vergara, RN RN Registered Nurse 08/27/20 documented as of this encounter Additional Source Comments PLEASE NOTE: Replies to this message will not be received.[facility]
--- OUTSIDE RECORDS SUMMARY | 2024-03-09 15:37 | XMS_ITS | Encounter Summary ---
Author Organization [facility] Address [address] [place] [address] Care Team Providers Care Manager Urgent Care Name Role Phone Jamal CARLISLE DO, Robert William Primary Care Provide r Unavailable Desiree Patrick MD Unavailable Farrah Nicole APRN,POLITICAL ANTHROPOLOGIST Unavailable Bry Echevarria MD Unavailable [phone] Jamal CARLISLE DO, Robert William Unavailable Unav Stephani Diaz MD Primary Care Provider Shruti Vergara RN Unavailable Unavailable Bianka Loera CNP Primary Care Provider Desiree Patrick MD Primary Care P rovider Encounter Details Date Type Department Care Team (Late st Contact Info) Description 12/31/2016 HIM Rn Resource Nurse [facility] Heart & Vascular [address] [address] Gil Solares MD Social History Tobacco Use [...] ADULT WITH OR WITHOUT CONTRAST PERFORMED BY: [employer] [place], [place] SITE: [place], [place] INTERPRETED BY: [facility] [place], [place] TRANSTHORACIC ECHOCARDIOGRAM REPORT REFERRING DIAGNOSIS: Paroxysmal [...] fibrillation. Note: This study was performed by [employer] for [place]. Only the interpretation wasperformed at the [facility] [place]. Electronically signed Gil Solares MD, [facility] Conference Specialist , 04:45 P A kmg/Doc#: [id number] cc: Adult Normal Value Adult Patient Values [...] Blood pressure: 116/81 mmHg Previous study: 11/19/15 Delivery Agent: [place] documented in this encounter Plan of [...] - 12/31/2016 12:00 AM CDT PERFORMED BY: [employer] [place], [place] SITE: [place], [place] INTERPRETED BY: [facility] [place], [place] TRANSTHORACIC ECHOCARDIOGRAM REPORT REFERRING DIAGNOSIS: Paroxysmal [...] fibrillation. Note: This study was performed by [facility] [facility] for [place].Only the interpretation was performed at the [facility]. Electronically signed Gil Solares MD, [facility] Conference Specialist , 04:45 P A taylag/Doc#: [id number] cc: Adult Normal Value Adult Patient Values [...] dt 254 ms E' sept 6.04 cm/sec CAEV756 ms E/e' 10 E' lat 9.65 cm/sec IMPRESSION: Patient height: 185 cm Patient weight: 94 kg Blood pressure: 116/81 mmHg Previous study: 11/19/15 Delivery Agent: HIEU Desiree NICHOLS documented in this encounter Visit Diagnoses Not on filedocumented in this encounter Care Teams Manager Urgent Care Relationship Specialty Start Date End Date Casey Berry II, DO PCP - General 11/22/06 08/17/19 Stephani Aleman MD PCP - General Family Medicine 08/18/19 09/16/20 Bianka Loera, LEATHER COVERER [address] [place] [phone] PCP - General Nurse Practitioner Family 09/17/20 712/31 Desiree Patrick MD [address] [place] [address] PCP - General Electrophysiology 02/23/22 03/09/22 Desiree Patrick MD [address] [place] [address] 08/09/17 Farrah Nicole APRN,POLITICAL ANTHROPOLOGIST [address] [place] [address] 08/09/17 Bry Echevarria MD [address] [place] [place] [address] 08/09/17 Casey Berry II, DO 08/09/17 Shruti Vergara RN RN Registered Nurse 08/27/20 documented as of this encounter Additional Source Comments PLEASE NOTE: Replies to this message will not be received.[facility] and [facility]
--- OUTSIDE RECORDS SUMMARY | 2024-03-09 15:37 | XMS_ITS | Encounter Summary ---
Author Organization [employer] Address [address] [place] [address] Care Team Providers Care Grid Molder Name Role Phone Jamal CARLISLE DO, Robert William Primary Care Provide r Unavailable Desiree Patrick MD Unavailable Farrah Nicole APRN,CLINICAL SERVICES PROFESSIONAL Unavailable Bry Echevarria MD Unavailable Jamal CARLISLE DO, Robert William Unavailable Unav Stephani Diaz MD Primary Care Provider Shruti Vergara RN Unavailable Unavailable Bianka Loera CNP Primary Care Provider [phone] Desiree Patrick MD Primary Care P rovider Encounter Details Date Type Department Care Team (Late st Contact Info) Description 10/21/2016 Historical Conversion [facility] Family Medicine [address] [place] [address] Social History Tobacco Use Types Packs/Day Years [...] on filedocumented in this encounter Care Teams Grid Molder Relationship Specialty Start Date End Date Casey Berry II, DO PCP - General 11/22/06 08/17/19 Stephani Aleman MD PCP - General Family Medicine 08/18/19 09/16/20 Bianka Loera CNP [address] [place] [phone] PCP - General Nurse Practitioner Family 09/17/2001/10 Desiree Patrick MD [address] [place] [address] PCP - General Electrophysiology 02/23/22 03/09/22 Desiree Patrick MD [address] [place] [address] 08/09/17 Farrah Nicole APRN,CLINICAL SERVICES PROFESSIONAL [address] [place] [address] 08/09/17 Bry Echevarria MD [address] [place] [phone] 08/09/17 Casey Berry II, DO 08/09/17 Shruti Vergara RN RN Registered Nurse 08/27/20 documented as of this encounter Additional Source Comments PLEASE NOTE: Replies to this message will not be received.[facility] and [facility]
--- OUTSIDE RECORDS SUMMARY | 2024-03-09 15:37 | XMS_ITS | Encounter Summary ---
Author Organization [employer] Address [address] [place] [address] Care Team Providers Care Structural Shop Helper Name Role Phone Jamal CARLISLE DO, Robert William Primary Care Provide r Unavailable Desiree Patrick MD Unavailable Farrah Nicole APRN,ENTERPRISE SALES EXECUTIVE Unavailable Bry Echevarria MD Unavailable [phone] Jamal CARLISLE DO, Robert William Unavailable Unav Stephani Diaz MD Primary Care Provider Shruti Vergara RN Unavailable Unavailable Bianka Loera CNP Primary Care Provider [phone] Desiree Patrick MD Primary Care P rovider Encounter Details Date Type Department Care Team (Late st Contact Info) Description 10/26/2016 Historical Conversion [facility] Family Medicine [address] [place] [address] Csaey Berry II, DO Social History Tobacco Use [...] on filedocumented in this encounter Care Teams Structural Shop Helper Relationship Specialty Start Date End Date Casey Berry II, DO PCP - General 11/22/06 08/17/19 Stephani Aleman MD PCP - General Family Medicine 08/18/19 09/16/20 Bianka Loera CNP [address] [place] [address] [address] [place] [phone] PCP - General Nurse Practitioner Family 09/17/2001/10 [place] [address] [place] [address] PCP - General Electrophysiology 02/23/22 03/09/22 Desiree Patrick, MD [address] [place] [address] 08/09/17 Farrah Nicole APRN,[facility] [address] [place] [address] 08/09/17 Bry Echevarria MD [address] [place], [place] [address] [address] 08/09/17 Casey Berry II, DO 08/09/17 Shruti Vergara RN RN Registered Nurse 08/27/20 documented as of this encounter Additional Source Comments PLEASE NOTE: Replies to this message will not be received.[facility] and [facility]
--- OUTSIDE RECORDS SUMMARY | 2024-03-09 15:37 | XMS_ITS | Encounter Summary ---
Author Organization [facility] [employer] Address [address] [place] [address] Care Team Providers Care Junior Manufacturing Engineer Name Role Phone Jamal CARLISLE DO, Robert William Primary Care Provide r Unavailable Desiree Patrick MD Unavailable Farrah Nicole APRN,FILM PRINTER Unavailable Bry Echevarria MD Unavailable Jamal CARLISLE DO, Robert William Unavailable Unav Stephani Diaz MD Primary Care Provider Shruti Vergara RN Unavailable Unavailable Bianka Loera CNP Primary Care Provider Desiree Patrick MD Primary Care P rovider Encounter Details Date Type Department Care Team (Late st Contact Info) Description 11/26/2015 HIM Telecommunicator [facility] Heart & Vascular [address] [address] Rajeev Barlow MD Social History [...] Order(s): MYOCARDIAL PERFUSION PHARMACOLOGIC STRESS PERFORMED BY: [facility] [employer] SERVICES [place], [place] SITE: [place], [place] INTERPRETED BY: [facility]ULAR [place], [place] PHARMACOLOGIC MYOCARDIAL PERFUSION SCAN Study supervised [...] TYPE: Rest/stress, single isotope gated SPECT imaging. [id number]-[id number]: 12.5 mCi (IV) for the rest injection. Ue19e-SGMVPROGR: 33.1 mCi (IV) for the stress injection. [...] function. Note: This study was performed by [employer]. Only the interpretation was performed at the [facility] [place]. Electronically signed Rajeev Barlow MD, [facility] Manager Furniture , 03:10 P A dsc/Doc#: [id number] cc: documented in this encounter Plan of Treatment Not on file documented as of this encounter Procedures Procedure Name Priority Date/Time Associated Diagnosis Comments MYOCARDIAL PERFUSION PHARMACOLOGIC STRESS 11/26/2015 documented in this encounter Results * MYOCARDIAL PERFUSION PHARMACOLOGIC STRESS (11/26/2015) Anatomical Region Laterality Modality Other 11/26/2015 Narrative Procedure Note Rajeev Barlow MD - 11/26/2015 12:00 AM CDT PERFORMED BY: [employer] [place], [place] SITE: [place], [place] INTERPRETED BY: [place], [place] PHARMACOLOGIC MYOCARDIAL PERFUSION SCAN Study supervised [...] TYPE: Rest/stress, single isotope gated SPECT imaging. [id number]: 12.5 mCi (IV) for the rest injection. So41e-[id number]: 33.1 mCi (IV) for the stress injection. [...] function. Note: This study was performed by [employer]. Only theinterpretation was performed at the [facility]. Electronically signed Rajeev Barlow MD, [facility] Manager Furniture , 03:10 P A dsc/Doc#: [id number] cc: Rajeev Barlow MD CAR NUC MED/STRESS documented in this encounter Visit Diagnoses Not on filedocumented in this encounter Care Teams Junior Manufacturing Engineer Relationship Specialty Start Date End Date Casey Berry II, DO PCP - General 11/22/06 08/17/19 Stephani Aleman MD PCP - General Family Medicine 08/18/19 09/16/20 Bianka Loera CNP [address] [place] [address] PCP - General Nurse Practitioner Family 09/17/2001/10 Desiree Patrick MD [address] [place] [address] PCP - General Electrophysiology 02/23/22 03/09/22 Desiree Patrick MD [address] [place] [address] 08/09/17 Farrah Nicole APRN,FILM PRINTER [address] [place] [address] 08/09/17 Bry Echevarria MD [address] [place] [address] 08/09/17 Casey Berry II, DO 08/09/17 Shruti Vergara RN RN Registered Nurse 08/27/20 documented as of this encounter Additional Source Comments PLEASE NOTE: Replies to this message will not be received.[facility] and [facility]
--- OUTSIDE RECORDS SUMMARY | 2024-03-09 15:38 | XMS_ITS | Encounter Summary ---
Author Organization [employer] Address [address] [place] [address] Care Team Providers Care Assistant Womens Volleyball Coach Name Role Phone Jamal CARLISLE DO, Robert William Primary Care Provide r Unavailable Desiree Patrick MD Unavailable Farrah Nicole APRN,TRUSS MAKER Unavailable Bry Echevarria MD Unavailable Jamal CARLISLE DO, Robert William Unavailable Unav Stephani iDaz MD Primary Care Provider Shruti Vergara RN Unavailable Unavailable Bianka Loera CNP Primary Care Provider Desiree Patrick MD Primary Care P rovider Encounter Details Date Type Department Care Team (Late st Contact Info) Description 01/03/2014 Historical Conversion [facility] Family Medicine [address] [place] [address] Errol Berry II, DO Social History Tobacco [...] AM CDT CRISTIAN BLEDSOE : 1945 HX: [id number] DOS: 01/03/2014 CHIEF COMPLAINT: Back pain. HISTORY [...] by:ERROL BERRY D.O. Jan 17 2014 7:34AM HOUSEKEEPER CAREGIVER documented in this encounter Plan of Treatment Not on file documented as of this encounter Visit Diagnoses Not on filedocumented in this encounter Care Teams Assistant Womens Volleyball Coach Relationship Specialty Start Date End Date Errol Berry II, DO PCP - General 11/22/06 08/17/19 Stephani Aleman MD PCP - General Family Medicine 08/18/19 09/16/20 Bianka Loera HOSPITAL PRODUCT SPECIALIST [address] [place] [address] PCP - General Nurse Practitioner Family 09/17/20 7/12/31 Desiree Patrick MD [address] [place] [address] PCP - General Electrophysiology 02/23/22 03/09/22 Desiree Patrick MD [address] [place] [address] 08/09/17 Farrah Nicole APRN,TRUSS MAKER [address] [place] [address] 08/09/17 Bry Echevarria MD [facility] [place] [address] 08/09/17 Errol Berry II, DO 08/09/17 Shruti Vergara RN RN Registered Nurse 08/27/20 documented as of this encounter Additional Source Comments PLEASE NOTE: Replies to this message will not be received.[facility] and [facility]
--- OUTSIDE RECORDS SUMMARY | 2024-03-09 15:38 | XMS_ITS | Encounter Summary ---
Author Organization [facility] Address [address] [place] [address] Care Team Providers Care Piece Cutter Name Role Phone Unavailable Primary Care Provider Unavailabl e Reason for Referral * MRI/CAT/PET Scan (Routine) - Closed Specialty Diagnoses / Procedures Referred By Malinda wan Referred To Contact Radiology Diagnoses Parkinsonism Unspecified (HCC) Procedures MR Brain without and with IV Contrast Vic Mae M.D. [address] [address] [facility] Region Referral ID Status Reason Start Date Expiration Date Visits Re quested Visits Authorized [id number] Closed 02/23/2024 02/22/2025 1 1 Reason for Visit * MRI/CAT/PET Scan (Routine) - Closed Specialty Diagnoses / Procedures Referred By Malinda wan Referred To Contact Radiology Diagnoses Parkinsonism Unspecified (HCC) Procedures MR Brain without and with IV Contrast Vic Mae M.D. [address] [address] [facility] Region Referral ID Status Reason Start Date Expiration Date Visits Re quested Visits Authorized [id number] Closed 02/23/2024 02/22/2025 1 1 Encounter Details Date Type Department Care Team (Latest Contact Info) Description 02/24/2024 1:38 PM CDT - 02/24/2024 11:59 PM CDT Hospital Encounter Department of Radiology in [place], [place] [address] [place] [address] Vic Mae M.D. [address] [place] [address] Parkinsonism Unspecified (HCC) Discharge Disposition: Home or Self Care Social History Tobacco Use Types Packs/Day Years [...] on file documented as of this encounter Medications at Time of Discharge Medication Sig Dispensed Refills Start Date End Date calcitonin, salmon, (Miacalcin) 200 unit/actuation nasal spray Administer 200 Units into one nostril daily. 01/24/2024 carbidopa-levodopa (SINEMET) 25-100 mg per tablet Take 2.5 tablets by mouth 3 (three) times a day. 675 tablet 3 04/15/2023 04/14/2024 DME CPAP BiPAP autoSV Advanced or VPAP adapt SV auto Max EPAP: 15 Min EPAP: 7 Max PS: 15 Min PS: 0 02/22/2019 dofetilide (TIKOSYN) 250 mcg capsule Take 250 mg by mouth 2 (two) times a day. 12/26/2021 DUCODYL, BISACODYL, ORAL Take by mouth. Jantoven 5 mg tablet Take 5 mg by mouth daily. 01/29/2022 lisinopriL (PRINIVIL,ZESTRIL) 10 mg tablet Take 10 mg by mouth daily. 01/19/2022 memantine (NAMENDA) 10 mg tablet TAKE 1 TABLET (10 MG) BY MOUTH TWICE DAILY. 11/17/2021 documented as of this encounter Plan of Treatment Not on file documented as of this encounter Procedures Procedure Name Priority Date/Time Associated Diagnosis Comments MR BRAIN WITHOUT AND WITH IV CONTRAST RAD - Routine (most inpatients and all outpatients) 02/24/2024 2:39 PM CDT Parkinsonism Unspecified (HCC) documented in this encounter Results * MR Brain without and with IV Contrast (02/24/2024 2:39 PM CDT) Anatomical Region Laterality Modality Head, Brain, Neuroradiology RST LOS, Neuroradiology ARZ LOS, Neuroradiology FLA LOS N/A Magnetic Resonance Impressions 02/24/2024 4:49 PM CDT 1. Abnormal appearance of Nigrososme-1. 2. Probable sequelae of chronic small vessel ischemia, severe in extent. 3. Moderate diffuse parenchymal volume loss. 4. No abnormal enhancement. Narrative 02/24/2024 4:49 PM CDT EXAM: MR BRAIN WITHOUT AND WITH IV CONTRAST COMPARISON:None FINDINGS: There is abnormal appearance of Nigrosome-1 (series 7 image # [id number]). Confluent hyperintensities in the cerebral white matter is non-specific however likely sequelae of chronic small vessel ischemia, severe in extent. Moderate diffuse parenchymal volume loss. No acute infarction or intracranial hemorrhage. No pathologic enhancement. There is artifact in the left inferomedial orbital tissues. Fluid in the mastoid air cells, right greater than left. Procedure Note Estuardo Schmitz M.D. - 02/24/2024 EXAM: MR BRAIN WITHOUT AND WITH IV CONTRAST COMPARISON:None FINDINGS: There is abnormal appearance of Nigrosome-1 (series 7 image # [id number]). Confluent hyperintensities in the cerebral white matter is non-specifichowever likely sequelae of chronic small vessel ischemia, severe inextent. Moderate diffuse parenchymal volume loss. No acute infarction or intracranial hemorrhage. No pathologic enhancement. There is artifact in the left inferomedialorbital tissues. Fluid in the mastoid air cells, right greater than left. IMPRESSION: 1. Abnormal appearance of Nigrososme-1. 2. Probable sequelae of chronic small vessel ischemia, severe in extent. 3. Moderate diffuse parenchymal volume loss. 4. No abnormal enhancement. Vic JOHN MRI PROCEDURE S documented in this encounter Visit Diagnoses Diagnosis Parkinsonism Unspecified (HCC) documented in this encounter Administered Medications Inactive Administered Medications - up to 3 most recent administrations Medication Order MAR Action Action Date Dose Rate Site gadobutrol injection 0-15 mL (Gadavist) 0-15 mL, intravenous, Once in imaging, contrast, Starting on Carmita 02/24/24 at 1424, For 1 dose, Intrathecal doses greater than 0.25 mL not recommended. Given 02/24/2024 2:40 PM CDT 8.7 mL sodium chloride 0.9 % injection 0-150 mL 0-150 mL, intravenous, As needed, line care, Starting on Carmita 02/24/24 at 1424 Given 02/24/2024 2:40 PM CDT 10 mL documented in this encounter
--- OUTSIDE RECORDS SUMMARY | 2024-03-09 15:38 | XMS_ITS | Referral Summary ---
Author Organization [facility] Address [address] [place] [address] Care Team Providers Care Spiral Tube Winder Name Role Phone Unavailable Primary Care Provider Unavailabl e Source Comments Patient records contain information from all sites at [facility]. For routine questions regarding patient records, call [phone] during business hours, M-F 8:00 AM - 5:00 PM Central Time. Record requests for emergency care only can be directed to [phone] at any time.[facility] Encounters Date Type Department Care Team Description 02/24/2024 1:38 PM CDT - 02/24/2024 11:59 PM CDT Hospital Encounter Department of Radiology in [address] [address] Vic Mae M.D. Parkinsonism Unspecified (HCC) Discharge Disposition: Home or Self Care 02/23/2024 10:15 AM CDT Comprehensive Visit Department of Neurology in [address] [address] Vic Mae M.D. Parkinsonism Unspecified (HCC) from Last 3 Months Allergies Active Allergy [...] BY MOUTH TWICE DAILY. 11/17/2021 Active lisinopriL (PRINIVIL,ZESTRI L) 10 mg tablet Take 10 mg by mouth daily. 01/19/2022 Active Jantoven 5 mg tablet Take 5 mg by mouth daily. 01/29/2022 Active DME CPAP BiPAP autoSV Advanced or VPAP adapt SV auto Max EPAP: 15 Min EPAP: 7 Max PS: 15 Min PS: 0 02/22/2019 Active DUCODYL, BISACODYL, ORAL Take by mouth. Activ e carbidopa-levodo pa (SINEMET) 25-100 mg per tablet Take 2.5 tablets by mouth 3 (three) times a day. 675 tablet 3 04/15/2023 4 Active Additional Information Patient taking differently: 3 tabletoral 3 times daily,Taking 3 tablets 3 times daily, Reported on 02/23/2024 calcitonin, salmon, (Miacalcin) 200 unit/actuation nasal spray Administer 200 Units into one nostril daily. 01/24/2024 Active donepeziL (ARICEPT) 10 mg tablet Take 10 mg by mouth daily. 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 Apnea Sleep Obstructive 02/04/2022 Deficiency Vitamin D 08/26/2021 Spinal Stenosis Lumbar Regio n Without Neurogenic Claudication 12/20/2018 Atrial Fibrillation Unspecified 06/21/2017 Hypertension Essential Primary 10/21/2016 Aneurysm Aortic Ascending Without Rupture 2015 Overview (05/17/2023): 4.2 x 4.3 on [facility] Social History Tobacco Use [...] Comments Blood Pressure 136/82 05/17/2023 1:44 PM PROPOSAL DIRECTOR Pulse 70 05/17/2023 1:44 PM PROPOSAL DIRECTOR Temperature 36.8 ??C (98.2 ??F) 05/17/2023 1:44 PM CS T Respiratory Rate - - Oxygen Saturation - - Inhaled Oxygen Concentration - - Weight 87.3 kg (192 lb 7.4 oz) 05/17/2023 1:44 P M PROPOSAL DIRECTOR Height 184 cm (6' 0.44) 04/15/2023 2:57 PM CDT Body Mass Index 25.79 04/15/2023 2:57 PM CDT Plan of Treatment Not on file Procedures Procedure Name Priority Date/Time Associated Diagnosis Comments MR BRAIN WITHOUT AND WITH IV CONTRAST RAD - Routine (most inpatients and all outpatients) 02/24/2024 2:39 PM CDT Parkinsonism Unspecified (HCC) from Last 3 Months Results * MR Brain without and with [...] volume loss. 4. No abnormal enhancement. Vic Mae M.D. IMG MRI PROCEDURE S from Last 3 Months
--- OUTSIDE RECORDS SUMMARY | 2024-03-09 15:38 | XMS_ITS | Encounter Summary ---
Author Organization [facility] Address [address] [place] [address] Care Team Providers Care Dry Cleaning Counter Clerk Name Role Phone Jamal CARLISLE DO, Robert William Primary Care Provide r Unavailable Desiree Patrick MD Unavailable Farrah Nicole APRN,THERAPEUTIC RECREATION DIRECTOR Unavailable Bry Echevarria MD Unavailable Jamal CARLISLE DO, Robert William Unavailable Unav Stephani Diaz MD Primary Care Provider Shruti Vergara RN Unavailable Unavailable Bianka Loera CNP Primary Care Provider Desiree Patrick MD Primary Care P rovider Encounter Details Date Type Department Care Team (Late st Contact Info) Description 08/22/2014 Historical Conversion [facility] Family Medicine [address] [place] [address] Casey Berry II, DO Social History Tobacco Use Types Packs/Day Years Used Date Smoking Tobacco: Never Assessed Sex and Gender Information Value Date Recorded Sex Assigned at Not on file Gender Identity Not on file Sexual Orientation Not on file documented as of this encounter Progress Notes * Casey Berry II, DO - 01/29/2015 12:00 AM CDT CRISTIAN BLEDSOE : 1945 HX: [id number] DOS: 01/29/2015 CHIEF COMPLAINT: Follow up after [...] by:Casey Berry D.O. Feb 11 2015 7:55AM CLINICAL MATERIAL HANDLER * Casey Berry II, DO - 09/10/2014 12:00 AM CST CRISTIAN BLEDSOE : 1945 HX: [id number] DOS: 09/10/2014 CHIEF COMPLAINT: Follow up of [...] by:Casey Berry D.O. Sep 26 2014 3:33PM CLINICAL MATERIAL HANDLER documented in this encounter Miscellaneous Notes * [...] call if you have any questions. Casey Brery DO [facility] Electronically signed by:DEYANIRA FRANCOIS Dec 06 2014 9:03AM CLINICAL MATERIAL HANDLER documented in this encounter Plan of Treatment Not on file documented as of this encounter Visit Diagnoses Not on filedocumented in this encounter Care Teams Dry Cleaning Counter Clerk Relationship Specialty Start Date End Date Casey Berry II, DO PCP - General 11/22/06 08/17/19 Stephani Aleman MD PCP - General Family Medicine 08/18/19 09/16/20 Bianka Loera, CLINICAL RESEARCH DIRECTOR [address] [place] [id number] PCP - General Nurse Practitioner Family 09/17/2001/10 Desiree Patrick MD [address] [place] [address] PCP - General Electrophysiology 02/23/22 03/09/22 Desiree Patrick MD [address] [place] [address] 08/09/17 Farrah Nicole APRN,THERAPEUTIC RECREATION DIRECTOR [address] [place] [address] 08/09/17 Bry Echevarria MD [address] [place] [address] [place] [address] 08/09/17 Casey Berry II, DO 08/09/17 Shruti Vergara RN RN Registered Nurse 08/27/20 documented as of this encounter Additional Source Comments PLEASE NOTE: Replies to this message will not be received.[facility] and [facility]
--- OUTSIDE RECORDS SUMMARY | 2024-03-09 15:38 | XMS_ITS | Encounter Summary ---
Author Organization [employer] Address [address] [place] [address] Care Team Providers Care Box Toe Buffer Name Role Phone Jamal CARLISLE DO, Robert William Primary Care Provide r Unavailable Desiree Patrick MD Unavailable Farrah Nicole APRN,BATTERY INSPECTOR Unavailable Bry Echevarria MD Unavailable [phone] Jamal CARLISLE DO, Robert William Unavailable Unav Stephani Diaz MD Primary Care Provider Shruti Vergara RN Unavailable Unavailable Bianka Loera CNP Primary Care Provider Desiree Patrick MD Primary Care P rovider Encounter Details Date Type Department Care Team (Late st Contact Info) Description 08/22/[address] [facility] Family Medicine [address] [place] [id number] Casey Berry II, DO Social History Tobacco Use Types Packs/Day Years Used Date Smoking Tobacco: Never Assessed Sex and Gender Information Value Date Recorded Sex Assigned at Not on file Gender Identity Not on file Sexual Orientation Not on file documented as of this encounter Last Filed Vital Signs Vital Sign Reading Time Taken Comments Blood Pressure 145/88 08/22/2014 12:00 AM EXCELLENCE MANAGER Pulse - - Temperature - - Respiratory Rate - - Oxygen Saturation - - Inhaled Oxygen Concentration - - Weight 90.7 kg (200 lb) 08/22/2014 12:00 AM EXCELLENCE MANAGER Height 185.4 cm (6' 1) 08/22/2014 12:00 AM EXCELLENCE MANAGER Body Mass Index 26.39 08/22/2014 12:00 AM EXCELLENCE MANAGER documented in this encounter Plan of Treatment Not on file documented as of this encounter Visit Diagnoses Not on filedocumented in this encounter Care Teams Box Toe Buffer Relationship Specialty Start Date End Date Casey Berry II, DO PCP - General 11/22/06 08/17/19 Stephani Aleman MD PCP - General Family Medicine 08/18/19 09/16/20 Bianka Loera CNP [address] [place] [address] [address] [place] [address] PCP - General Nurse Practitioner Family 09/17/2001/10 Desiree Patrick MD [address] [place] [address] PCP - General Electrophysiology 02/23/22 03/09/22 Desiree Patrick MD [address] [place] [address] 08/09/17 Farrah Nicole, LEAN MANUFACTURING SPECIALIST,BATTERY INSPECTOR [address] [place] [address] 08/09/17 Bry Echevarria MD [address] [place] [address] [facility] [place] [phone] 08/09/17 Casey Berry II, DO 08/09/17 Shruti Vergara RN RN Registered Nurse 08/27/20 documented as of this encounter Additional Source Comments PLEASE NOTE: Replies to this message will not be received.[facility] [place] [facility] and [facility]
--- OUTSIDE RECORDS SUMMARY | 2024-03-09 15:38 | XMS_ITS | Encounter Summary ---
Author Organization [facility] Address [address] [place] [address] Care Team Providers Care Vacuum Filter Operator Name Role Phone Jamal CARLISLE DO, Robert William Primary Care Provide r Unavailable Desiree Patrick MD Unavailable Farrah Nicole APRN, CNS Unavailable Bry Echevarria MD Unavailable [phone] Jamal CARLISLE DO, Robert William Unavailable Unav Stephani Diaz MD Primary Care Provider [phone] Shruti Vergara RN Unavailable Unavailable Bianka Loera CNP Primary Care Provider Desiree Patrick MD Primary Care P rovider Encounter Details Date Type Department Care Team (Late st Contact Info) Description 11/15/2006 Clinic Encounter [facility] [address] [place] [address] Ganga Anderson MD Social History [...] Rohan Carroll : 1945 E: Ganga Anderson MD/[facility] DERMATOLOGY OFFICE VISIT CHART: [id number] P Date of Service: 2006 Doc #: [id number] P Attending Physician: None available SUBJECTIVE: This [...] we will set up treatment as indicated. [facility] documented in this encounter Plan of Treatment Not on file documented as of this encounter Visit Diagnoses Not on filedocumented in this encounter Care Teams Vacuum Filter Operator Relationship Specialty Start Date End Date Casey Berry II, DO PCP - General 11/22/06 08/17/19 Stephani Aleman MD PCP - General Family Medicine 08/18/19 09/16/20 Bianka Loera CNP [address] [place] [address] [address] [place] [address] PCP - General Nurse Practitioner Family 09/17/20 7/2 12/31 Desiree Patrick MD [address] [place] [address] PCP - General Electrophysiology 02/23/22 03/09/22 Desiree Patrick MD [address] [facility] [place] [address] 08/09/17 Farrah Nicole APRN,MINE PRODUCTION ENGINEER [address] [place] [address] 08/09/17 Bry Echevarria MD [address] [place] [address] 08/09/17 Casey Berry II, DO 08/09/17 Shruti Vergara RN RN Registered Nurse 08/27/20 documented as of this encounter Additional Source Comments PLEASE NOTE: Replies to this message will not be received.[facility] and [facility]
--- OUTSIDE RECORDS SUMMARY | 2024-03-09 15:38 | XMS_ITS | Encounter Summary ---
Author Organization [employer] Address [address] [place] [address] Care Team Providers Care Registered Nurse Obstetrics Name Role Phone Jamal CARLISLE DO, Robert William Primary Care Provide r Unavailable Desiree Patrick MD Unavailable Farrah Nicole APRN,FERRY TERMINAL AGENT Unavailable Bry Echevarria MD Unavailable Jamal CARLISLE DO, Robert William Unavailable Unav Stephani Diaz MD Primary Care Provider Shruti Vergara RN Unavailable Unavailable Bianka Loera CNP Primary Care Provider Desiree Patrick MD Primary Care P rovider Encounter Details Date Type Department Care Team (Late st Contact Info) Description 08/28/2015 Historical Conversion [facility] [address] [place] [id number] Casey Berry II, DO Social History Tobacco Use Types Packs/Day Years Used Date Smoking Tobacco: Never Assessed Sex and Gender Information Value Date Recorded Sex Assigned at Not on file Gender Identity Not on file Sexual Orientation Not on file documented as of this encounter Last Filed Vital Signs Vital Sign Reading Time Taken Comments Blood Pressure 134/90 08/28/2015 12:00 AM CONTRACTOR GENERAL BUILDING Pulse - - Temperature - - Respiratory Rate - - Oxygen Saturation - - Inhaled Oxygen Concentration - - Weight 90.2 kg (198 lb 13.7 oz) 016 12:00 AM CONTRACTOR GENERAL BUILDING Height 186 cm (6' 1.23) 08/28/2015 12: 00 AM CONTRACTOR GENERAL BUILDING Body Mass Index 26.07 08/28/2015 12:00 AM CONTRACTOR GENERAL BUILDING documented in this encounter Progress Notes * [...] healthy by no longer smoking.; Status:Complete; Done: 73Sds5727 Reason For Visit Go over CT results. [...] 1 TABLET BY MOUTH ONCE DAILY; Therapy: 66Ses7592 to (Evaluate:41Rms6849) Requested for: 41Fml6346; Last Rx:95Tar5117 Ordered 2. Metoclopramide HCl - 5 MG Oral Tablet; TAKE 1 TABLET BY MOUTH THREE TIMES DAILY WITH MEALS; Therapy: 10Sep2014 to (Evaluate:22Rpd7999) Requested for: 34Qux6671; Last Rx:47Qhd3267 Ordered 3. Metoprolol Tartrate 25 MG Oral Tablet; 1/2 to 1 prn a fib Requested for: 00Lcf3694; Last Rx:38Gcd9134 Ordered 4. Tylenol Extra Strength 500 MG Oral Tablet; Therapy: (Recorded:09Nkv9211) to Recorded 5. Warfarin Sodium 5 MG Oral Tablet; Take as directed by ACC; Therapy: 57Vsa9976 to (Evaluate:15May2017) Requested for: 20May2016 Recorded Allergies 1. Penicillins 2. Sulfa Drugs Vitals Recorded: 93Xtn2970 10:00AM Systolic 115, RUE, Sitting Diastolic 76, RUE, Sitting Heart Rate 65 Respiration 16 Temperature 97.6 F, Forehead Weight 91.5 kg BMI Calculated 26.45 BSA Calculated 2.16 2+ Falls or 1 Fall with injury in last year? No O2 Saturation 96 Signatures Casey Berry II, D.OWilliam/pj-29 Electronically signed by : Casey Berry DO; Jul 09 2016 1:56PM CONTRACTOR GENER[employer] BUILDING * Casey Berry II, DO - 03/10/2016 [...] use sparingly qid; Therapy: 18Nov2015 to (Last Rx:68Avn0993) Requested for: 25Wte3042 Ordered 2. Lisinopril 10 MG Oral Tablet; TAKE 1 TABLET BY MOUTH ONCE DAILY; Therapy: 79Nec5709 to (Evaluate:16Ydy8592) Requested for: 38Xcx7857; Last Rx:74Muw8191 Ordered 3. Metoclopramide HCl - 5 MG Oral Tablet; TAKE 1 TABLET BY MOUTH THREE TIMES DAILY WITH MEALS; Therapy: 10Sep2014 to (Evaluate:30Zpc1525) Requested for: 10Oah6928; Last Rx:96Odd8384 Ordered 4. Tylenol Extra Strength 500 MG Oral Tablet; Therapy: (Recorded:51Hti1393) to Recorded 5. Warfarin Sodium 5 MG Oral Tablet; Take as directed by ACC; Therapy: 48Qyp1479 to (Evaluate:56Exp8621) Requested for: 19Feb2016; Last Rx:19Feb2016 Ordered Allergies [...] Vital Signs [Data Includes: Current Encounter] Recorded: 81Lyb8647 10:06AM Blood Pressure 124 / 71 Heart [...] Casey Berry DO; Apr 02 2016 8:50AM CONTRACTOR GENER[employer] BUILDING * Casey Berry II, DO - 01/28/2016 [...] use sparingly qid; Therapy: 18Nov2015 to (Last Rx:97Nov4196) Requested for: 70Mnl8637 Ordered 2. Lisinopril 10 MG Oral Tablet; TAKE 1 TABLET BY MOUTH ONCE DAILY; Therapy: 78Jcj8305 to (Evaluate:50Evi6077) Requested for: 11Xby2341; Last Rx:11Luf2562 Ordered 3. Metoclopramide HCl - 5 MG Oral Tablet; TAKE 1 TABLET BY MOUTH THREE TIMES DAILY WITH MEALS; Therapy: 10Sep2014 to (Evaluate:73Nsc2650) Requested for: 37Zrl4370; Last Rx:59Vtj3050 Ordered 4. Tylenol Extra Strength 500 MG Oral Tablet; Therapy: (Recorded:18Nov2015) to Recorded 5. Xarelto 15 MG Oral Tablet; TAKE 1 TABLET DAILY Requested for: 08Jan2016; Last Rx:08Jan2016 Ordered Allergies 1. Penicillins 2. Sulfa Drugs Social History 1. Former smoker: 0 - 10 pack years (V15.82) (Z87.891) Vitals Vital Signs [Data Includes: Current Encounter] Recorded: 86Ekb5931 10:31AM Blood Pressure 139 / 83 Heart [...] Casey Berry DO; Feb 11 2016 7:47AM CONTRACT[employer] BUILDING * Casey Berry II, DO - 12/11/2015 12:00 AM CDT Chief Complaint/Reason for Visit f/up ct History of Present Illness This is a 70-year-old male who recently underwent a stress test. The stress test showed no major abnormality, however, it was suggested of an aneurysm. 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 [place] that the CT scan would be a [...] 1 TABLET BY MOUTH ONCE DAILY; Therapy: 73Una0689 to (Evaluate:70Mhp1527) Requested for: 58Jdx0226; Last Rx:24Sak4482 Ordered 3. Metoclopramide HCl - 5 MG Oral Tablet; TAKE 1 TABLET BY MOUTH THREE TIMES DAILY WITH MEALS; Therapy: 10Sep2014 to (Evaluate:63Vpm2781) Requested for: 03Dec2015; Last Rx:86Own7024 Ordered 4. Tylenol Extra Strength 500 MG [...] Casey Berry DO; Dec 30 2015 8:19AM [employer] BUILDING * Casey Berry II, DO - 11/18/2015 12:00 AM CDT Chief Complaint/Reason for Visit ER follow up History of Present Illness This is a 69-year-old male who has a long history of paroxysmal tachycardia. He recently had an episode of paroxysmal tachycardia. He went in to the ER in [place] and found that he had a [...] INHALE ONE SPRAY TWICE DAILY PRN; Therapy: 22Awg8108 to Requested for: 03Jan2014 Recorded 2. Lisinopril 10 MG Oral Tablet; TAKE 1 TABLET BY MOUTH ONCE DAILY; Therapy: 88Elh8651 to (Evaluate:58Qkh6788) Requested for: 19Ten7951; Last Rx:02Aut0011 Ordered 3. Metoclopramide HCl - 5 MG Oral Tablet; TAKE 1 TABLET BY MOUTH THRE E TIMES DAILY WITH MEALS; Therapy: 10Sep2014 to (Evaluate:50Qzf9225) Requested for: 47Don1348; Last Rx:55Jjf8186 Ordered 4. Metoprolol Tartrate 25 MG Oral [...] Casey Berry DO; Nov 26 2015 8:06AM [employer] BUILDING documented in this encounter H&P Notes * [...] INHALE ONE SPRAY TWICE DAILY PRN; Therapy: 97Znu5609 to Requested for: 03Jan2014 Recorded 3. Lisinopril 10 MG Oral Tablet; TAKE 1 TABLET BY MOUTH ONCE DAILY; Therapy: 73Bvn9250 to (Evaluate:85Dih2202) Requested for: 86Uzy6285; Last Rx:64Zna8950 Ordered 4. Metoclopramide HCl - 5 MG Oral Tablet; TAKE 1 TABLET BY MOUTH THRE E TIMES DAILY WITH MEALS; Therapy: 10Sep2014 to (Evaluate:96Wqn3293) Requested for: 46Qir1292; Last Rx:09Ais5623 Ordered 5. Vitamin D3 1000 UNIT Oral [...] healthy by no longer smoking.; Status:Complete; Done: 12Zat3689 1.Prevnar shot. 2.CBC, vitamin D, PSA, comp, and lipid. 3.Did discuss with patient about his foot. Signatures Casey Berry II, D.OWilliam/jaj-08 Electronically signed by : Casey Berry DO; Sep 19 2015 8:13AM [employer] BUILDING documented in this encounter Procedure Notes * Casey Berry II, DO - 11/26/2015 12:00 AM CDTAssociated Order(s): NUCLEAR MEDICINE NUCLEAR MEDICINE CRISTIAN BLEDSOE : 1945 HX: [id number] DOS: 11/26/2015 Lexiscan portion of Lexiscan Cardiolite. [...] by:Casey Berry DO Dec 03 2015 7:45AM [employer]ILDING documented in this encounter Miscellaneous Notes * [...] you have any questions. Casey Berry DO [facility] Electronically signed by:DEYANIRA FRANCOIS Sep 09 2015 11:25AM [employer] BUILDING documented in this encounter Plan of Treatment Not on file documented as of this encounter Procedures Procedure Name Priority Date/Time Associated Diagnosis Comments NUCLEAR MEDICINE 11/26/2015 documented in this encounter Results * NUCLEAR MEDICINE (11/26/2015) Anatomical Region Laterality Modality Other Narrative Procedure Note Casey Berry II, DO - 11/26/2015 12:00 AM CDT NUCLEAR MEDICINE CRISTIAN BLEDSOE : 1945 HX: [id number] DOS: 11/26/2015 Lexiscan portion of Lexiscan Cardiolite. BASELINE EKG: Shows no abnormality of note. PROTOCOL: Patient was given Lexiscan and Cardiolite. He had no majorcomplaints. EKG CHANGES NOTED DURING TEST: EKG showed no changes. IMPRESSION: 1. Normal Lexiscan portion of Lexiscan Cardiolite. RECOMMENDATIONS: We will await radiologic portion of test. Casey Berry II, D.O./jaj-23 Electronically signed by:Casey Berry DO Dec 03 2015 7:45AM [employer] BUILDING Casey Berry II, DO RAD NUCLEAR M EDICINE documented in this encounter Visit Diagnoses Not on filedocumented in this encounter Care Teams Registered Nurse Obstetrics Relationship Specialty Start Date End Date Casey Berry II, DO PCP - General 11/22/06 08/17/19 Stephani Aleman MD PCP - General Family Medicine 08/18/19 09/16/20 Bianka Loera PRODUCTION CLERK [address] [facility] [address] [place] [address] PCP - General Nurse Practitioner Family 09/17/20 712/31 Desiree Patrick MD [address] [place] [address] PCP - General Electrophysiology 02/23/22 03/09/22 [place] [address] [place] [address] 08/09/17 Farrah Nicole APRN,ALEX [address] [place] [place] [address] 08/09/17 Bry Echevarria MD [address] [place] [address] 08/09/17 Casey Berry II, DO 08/09/17 Shruti Vergara RN RN Registered Nurse 08/27/20 documented as of this encounter Additional Source Comments PLEASE NOTE: Replies to this message will not be received.[facility]
--- OUTSIDE RECORDS SUMMARY | 2024-03-09 15:38 | XMS_ITS ---
Author Organization [facility] Address [address] [place] [address] Care Team Providers Care Peoplesoft Hcm Developer Name Role Phone Unavailable Unavailable Unavailable Surgery Details Not on file Complications Check Surgery Details section. Procedure Estimated Blood Loss Check Surgery Details section. Procedure Findings Check Surgery Details section. Procedure Specimens Taken Check Surgery Details section.
--- OUTSIDE RECORDS SUMMARY | 2024-03-09 15:38 | XMS_ITS | Clinical Summary ---
Author Organization [facility] Address [address] [place] [address] Care Team Providers Care Systems Librarian Name Role Phone Unavailable Primary Care Provider Unavailabl e Source Comments Patient records contain information from all sites at [facility]. For routine questions regarding patient records, call [phone] during business hours, M-F 8:00 AM - 5:00 PM Central Time. Record requests for emergency care only can be directed to [phone] at any time.[facility] Allergies Active Allergy Reactions Criticality Noted [...] 2015 Overview (05/17/2023): 4.2 x 4.3 [address] [facility] Encounters Date Type Department Care Team Description 02/24/2024 1:38 PM CDT - 02/24/2024 11:59 PM CDT Hospital Encounter Department of Radiology in [place], [place] [address] [place] [phone] Vic Mae M.D. Parkinsonism Unspecified (HCC) Discharge Disposition: Home or Self Care 02/23/2024 10:15 AM CDT Comprehensive Visit Department of Neurology in [place], [place] [address] [place] [phone] Vic Mae M.D. Parkinsonism Unspecified (HCC) from Last 3 Months Social History [...] Comments Blood Pressure 136/82 05/17/2023 1:44 PM KRAFT DIGESTER OPERATOR Pulse 70 05/17/2023 1:44 PM KRAFT DIGESTER OPERATOR Temperature 36.8 ??C (98.2 ??F) 05/17/2023 1:44 PM CS T Respiratory Rate - - Oxygen Saturation - - Inhaled Oxygen Concentration - - Weight 87.3 kg (192 lb 7.4 oz) 05/17/2023 1:44 P M KRAFT DIGESTER OPERATOR Height 184 cm (6' 0.44) 04/15/2023 2:57 PM CDT Body Mass Index 25.79 04/15/2023 2:57 PM CDT Plan of Treatment Health Maintenance Due Date Last Done Comments Creatinine Level (Kidney Fun ction Test) 1945 Hepatitis C Screening 1945 Potassium Level 1945 Sodium Level 1945 Fall Risk Screen (Annual) 07/12/2023 COVID-19 Vaccine (2022-2 4 season) 2023 04/17/2023, 05/07/2022, 11/04/2021, Additional history exists Influenza Vaccine (#1) 2024 , 04/13/2022, 03/25/2021, Additional history exists Office Visit for Blood Press ure Check / Re-check 05/17/2024 05/17/2023 DTaP,Tdap,and Td Vaccines (3 - Td or Tdap) 09/14/2033 09/15/2023, 08/21/2013 Pneumococcal vaccine (65+ years) Completed 08/28/2016, 08/28/2015, 01/28/2010 Zoster Vaccines Completed 11/16/2023, 0312/2023, 01/28/2010 Procedures Procedure Name Priority Date/Time Associated Diagnosis [...]
--- OUTSIDE RECORDS SUMMARY | 2024-03-09 15:38 | XMS_ITS | Encounter Summary ---
Author Organization [employer] Address [address] [place] [address] Care Team Providers Care Supervisor Microwave Name Role Phone Jamal CARLISLE DO, Robert William Primary Care Provide r Unavailable Desiree Patrick MD Unavailable Farrah Nicole APRN,HAND SPRAY OPERATOR Unavailable Bry Echevarria MD Unavailable Jamal CARLISLE DO, Robert William Unavailable Unav Stephani Diaz MD Primary Care Provider Shruti Vergara RN Unavailable Unavailable Bianka Loera CNP Primary Care Provider [phone] Desiree Patrick MD Primary Care P rovider Encounter Details Date Type Department Care Team (Late st Contact Info) Description 11/07/2015 Historical Conversion [facility] [address] [place] [address] Moon Maloney MD Social History Tobacco Use [...] Body Mass Index 26.65 08/28/2015 12:00 AM CONSTRUCTION TECHNICIAN documented in this encounter Progress Notes * Moon Maloney MD - 11/06/2016 12:00 AM CDT UROLOGY [facility] CRISTIAN BLEDSOE : 1945 HX: [id number] DOS: 11/06/2016 SUBJECTIVE: Cristian and his are here to discuss the results of the recent prostate biopsy. We ended up taking Anurag off his Coumadin and doing a prostate biopsy because of a positive LAUNDRY OPERATOR-3 test and an elevated PSA, so he is here with his to discuss that. PHYSICAL EXAMINATION: Vital Signs: Vital signs reviewed in Allscripts. Please see vitals tab for details. His PSA was 5.4. His AUA symptom score is 1. His prostate size is 29.34 grams. The prostate biopsy came back with a [place] 6 adenocarcinoma less than 2% one of [...] on any of these specimens. IMPRESSION: 1. [place] 7 adenocarcinoma of the prostate. PLAN: I [...] prostatectomy. Moon Maloney M.D./la-1 cc: Jose Winslow M.D./[facility] cc: Casey Berry II, D.O./[facility] Electronically signed by:Moon Maloney M.D. Nov 09 2016 1:49PM CONSTRUCTION TECHNICIAN * Moon Maloney MD - 10/23/2016 12:00 AM CDT UROLOGY [facility] CRISTIAN BLEDSOE : 1945 HX: [id number] DOS: 10/23/2016 SUBJECTIVE: Cristian is here for a prostate biopsy. I saw Cristian in August. PSA has started to go up.He had a little bit of an elevated PSA and elevated PSA velocity. We did a LAUNDRY OPERATOR-3 test. It did just come back [...] negative. IMPRESSION: 1. Elevated PSA and positive LAUNDRY OPERATOR-3 test. PLAN: I told Anurag to [...] Moon Maloney M.D./la-17 cc: Casey Berry II, D.OWilliam/[facility] Electronically signed by:Moon Maloney M.D. Oct 26 2016 12:13PM CONSTRUCTION TECHNICIAN * Moon Maloney MD - 08/27/2016 12:00 AM CST UROLOGY CRISTIAN BLEDSOE : 1945 HX: [id number] DOS: 08/27/2016 SUBJECTIVE: Cristian comes to see [...] because we are going to do a LAUNDRY OPERATOR-3 test. LABORATORY DATA: AUA symptom score is 1. He has absolutely no trouble urinating. PSA is 5.4. IMPRESSION: 1. Elevated PSA velocity. PLAN: We are going to go ahead and get a LAUNDRY OPERATOR-3 test because his velocity is really [...] going to go ahead and get a LAUNDRY OPERATOR-3 test today. Obviously if that is [...] course risks of bleeding. However, if the LAUNDRY OPERATOR-3 is negative, then I would just see him in six months for a PSA. Total time spent with the patient was 25 minutes with greater than 50% in counseling. Moon Maloney M.D./la-21 cc: Casey Berry II, D.OWilliam/[facility] Electronically signed by:Moon Maloney M.D. Sep 18 2016 1:34PM CONSTRUCTION TECHNICIAN * Moon Maloney MD - 02/11/2016 12:00 AM CDT UROLOGY CRISTIAN BLEDSOE : 1945 HX: [id number] DOS: 02/11/2016 SUBJECTIVE: Cristian comes to see [...] Moon Maloney M.D./la-2 cc: Casey Berry, II, D.O./[facility] Electronically signed by:Moon Maloney M.D. Feb 24 2016 9:43AM CONSTRUCTION TECHNICIAN * Moon Maloney MD - 11/07/2015 12:00 AM CDT UROLOGY CRISTIAN BLEDSOE : 1945 HX: [id number] DOS: 11/07/2015 REFERRING PROVIDER: Dr. Berry. HISTORY [...] He is a former smoker, retired from [employer], he is . FAMILY HISTORY: Negative for [...] Moon Maloney M.D./la-29 cc: Casey Berry II, D.O./[facility] Electronically signed by:Moon Maloney M.D. Nov 25 2015 10:34AM CONSTRUCTION TECHNICIAN documented in this encounter Plan of Treatment Not on file documented as of this encounter Visit Diagnoses Not on filedocumented in this encounter Care Teams Supervisor Microwave Relationship Specialty Start Date End Date Casey Berry II, DO PCP - General 11/22/06 08/17/19 Stephani Aleman MD PCP - General Family Medicine 08/18/19 09/16/20 Bianka Loera CNP [address] [facility] [address] [place] [address] PCP - General Nurse Practitioner Family 09/17/2001/10 [place] [address] [place] [address] PCP - General Electrophysiology 02/23/22 03/09/22 Desiree Patrick MD [address] [place] [address] 08/09/17 Farrah Nicole APRN,HAND SPRAY OPERATOR [address] [place] [address] 08/09/17 Bry Echevarria MD [address] [place] [address] [facility] [place] [address] 08/09/17 Casey Berry II, DO 08/09/17 Shruti Vergara RN RN Registered Nurse 08/27/20 documented as of this encounter Additional Source Comments PLEASE NOTE: Replies to this message will not be received.[facility] and [facility]
--- OUTSIDE RECORDS SUMMARY | 2024-03-09 15:38 | XMS_ITS | Encounter Summary ---
Author Organization [facility] Address [address] [place] [address] Care Team Providers Care Property Investor Name Role Phone Unavailable Primary Care Provider Unavailabl e Reason for Referral * MRI/CAT/PET Scan (Routine) - Closed Specialty Diagnoses / Procedures Referred By Malinda wan Referred To Contact Radiology Diagnoses Parkinsonism Unspecified (HCC) Procedures MR Brain without and with IV Contrast Vic Mae M.D. [address] [place] [address] [facility] Region Referral ID Status Reason Start Date Expiration Date Visits Re quested Visits Authorized [id number] Closed 02/23/2024 02/22/2025 1 1 Reason for Visit * Reason Comments Parkinson's Disease * Outpatient (Routine) - Closed Specialty Diagnoses / Procedures Referred By Malinda wan Referred To Contact Neurology Diagnoses Parkinsonism Unspecified (HCC) Cameron Poe M.D., M.P.H. [address] [place] [address] [facility] Region Referral ID Status Reason Start Date Expiration Date Visits Re quested Visits Authorized [id number] Closed 01/05/2023 01/05/2024 1 1 Encounter Details Date Type Department Care Team (Latest Contact Info) Description 02/23/2024 10:15 AM CDT Comprehensive Visit Department of Neurology in [place], [place] [address] [place] [address] Vic Mae M.D. [address] [address] Parkinsonism Unspecified (HCC) Social History Tobacco Use Types Packs/Day [...] as of this encounter Progress Notes * Vic Mae M.D. - 02/23/2024 10:15 AM CDT SUBJECTIVE CHIEF COMPLAINT / REASON FOR VISIT Rohan Carroll is a 78 y.o. male who returns for follow-up of parkinsonism. 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 Please recall he was previously seen by myself in April of 2023. Before that he was seen by Dr. Poe. At our last visit we focused on trying to have him separate his doses from food on a consistent basis and increase his dose from 2 tablets 3 times a day to 2-1/2 and then 2 3 as needed. Sounds as though in the interim he was also seen in outside Neurology provider who recommended increase in the dose of 3 tablets 3 times a day and again trying to separate his doses from food as much as possible. At 3 tabs 3 times a day his feels as though he was having some head movements as well as grimacing that occurs throughout the day. She would not really notice this at lower doses. They have essentially discontinued his sleep apnea treatment as he really can not tolerate different sleep apnea mask. He does have daytime fatigue and tiredness taking naps throughout the day. They have also noticed fairly substantial weight loss since he was last seen in April of nearly 30 lb. He continues toeat fairly well and does add an Ensure to his lunch and dinner meals. He has not met with his primary care physician to discuss weight loss. REVIEW OF SYSTEMS REVIEW OF SYSTEMS OBJECTIVE PHYSICAL EXAM General: Male in his 70s, alert, attentive, no acute distress Vitals: BP 106/78, HR 64 Neuro: Alert and interactive. Occasionally there are movements of the head and face suggestive of possible dyskinesia. I can not see any jairo grimacing today. There is no rest tremor on evaluation today. He continues to have +2 rigidity in the left upper extremity and +1 in the right upper extremity. Finger tapping and hand closure AMR's are reduced -2 on the left and -1 on the right. His foot ta pping AMR's are limited by right footdrop which is chronic however the left foot tapping AMR's out grade at -1. His gait is cautious with a slight steppage gait on the right turning in 7-8 steps withhis walker. For details of the neurologic examination, please see the neurologic examination form. ASSESSMENT / PLAN #1 Parkinsonism Unspecified (HCC) I discussed my thoughts with Mr. Carroll and his . I do wonder if he is slightly over dosed on his carbidopa/levodopa at this point as he has moved his doses fairly successfully from food, so he may be slightly over dosed on levodopa at this point, leading to perhaps some dyskinesias involving the face and head. I discussed going back down to 2.5 tablets 3 times a day, continuing to separate the doses from food as he is currently doing to see if that leads to any improvement in his symptoms. We did discuss that at this point, I think we will just order our own MRI of the brain to determine the degree of T2 FLAIR hyperintensities in the bilateral white matter to try to see if there areindeed findings more consistent with perhaps an underlying vascular parkinsonism in Parkinson's disease. Despite his fairly substantial dosing of carbidopa/levodopa today, he continues to have rigidity, bradykinesia, and slow walking, part of which is likely the result of his lumbar spinal stenosis. Discussed with them as well that they could discontinue donepezil given his weight loss. We will hold on his memantine at this time. I plan to see him back in the fall. We will communicate the results of testing to him in the interim. Total time 52 minutes documented in this encounter Plan of Treatment Not on file documented as of this encounter Results * MR Brain without [...] encounter Visit Diagnoses Diagnosis Parkinsonism Unspecified (HCC) Parkinsonism Unspecified (HCC) documented in this encounter
--- OUTSIDE RECORDS SUMMARY | 2024-03-09 15:38 | XMS_ITS | Encounter Summary ---
Author Organization [facility] Address [address] [place] [address] Care Team Providers Care Editor Sound Name Role Phone Jamal CARLISLE DO, Robert William Primary Care Provide r Unavailable Desiree Patrick MD Unavailable Farrah Nicole APRN,PROFESSOR OF COMMUNICATION ARTS Unavailable [phone] Bry Echevarria MD Unavailable Jamal CARLISLE DO, Robert William Unavailable Unav Stephani Diaz MD Primary Care Provider Shruti Vergara RN Unavailable Unavailable Bianka Loera CNP Primary Care Provider Desiree Patrick MD Primary Care P rovider Encounter Details Date Type Department Care Team (Late st Contact Info) Description 09/10/2014 Historical Conversion [facility] Family Medicine [address] [place] [address] Casey Berry II, DO Social History Tobacco Use Types Packs/Day Years Used Date Smoking Tobacco: Never Assessed Sex and Gender Information Value Date Recorded Sex Assigned at Not on file Gender Identity Not on file Sexual Orientation Not on file documented as of this encounter Last Filed Vital Signs Vital Sign Reading Time Taken Comments Blood Pressure 130/80 09/10/2014 12:00 AM PLATE PUT IN WORKER Pulse - - Temperature - - Respiratory Rate - - Oxygen Saturation - - Inhaled Oxygen Concentration - - Weight 93.9 kg (207 lb 0.2 oz) 09/10/2014 12:00 AM PLATE PUT IN WORKER Height - - Body Mass Index 27.31 08/22/2014 12:00 AM PLATE PUT IN WORKER documented in this encounter Plan of Treatment Not on file documented as of this encounter Visit Diagnoses Not on filedocumented in this encounter Care Teams Editor Sound Relationship Specialty Start Date End Date Casey Berry II, DO PCP - General 11/22/06 08/17/19 Stephani Aleman MD PCP - General Family Medicine 08/18/19 09/16/20 Bianka Loera CNP [address] [place] [address] [address] [place] [phone] PCP - General Nurse Practitioner Family 09/17/2001/10 Desiree Patrick MD [address] [place] [address] PCP - General Electrophysiology 02/23/22 03/09/22 Desiree Patrick MD [address] [place] [address] 08/09/17 Farrah Nicole APRN,PROFESSOR OF COMMUNICATION ARTS [address] [place] [address] 08/09/17 Bry Echevarria MD [address] [place] [address] [place] [phone] 08/09/17 aCsey Berry II, DO 08/09/17 Shruti Vergara RN RN Registered Nurse 08/27/20 documented as of this encounter Additional Source Comments PLEASE NOTE: Replies to this message will not be received.[facility] and [facility]
--- OUTSIDE RECORDS SUMMARY | 2024-03-09 15:38 | XMS_ITS | Encounter Summary ---
Author Organization [facility] Address [address] [place] [address] Care Team Providers Care Trommel Tender Name Role Phone Jamal CARLISLE DO, Robert William Primary Care Provide r Unavailable Desiree Patrick MD Unavailable Farrah Nicole APRN,ALEX Unavailable Bry Echevarria MD Unavailable [phone] Jamal CARLISLE DO, Robert William Unavailable Unav ailable Stephani Aleman MD Primary Care Provider Shruti Vergara RN Unavailable Unavailable Bianka Loera CNP Primary Care Provider [phone] Desiree Patrick MD Primary Care P rovider Encounter Details Date Type Department Care Team (Late st Contact Info) Description 12/01/2006 HIM Grassland Conservationist Generic Grassland Conservationist [address] [place] [address] Social History Tobacco Use Types [...] on filedocumented in this encounter Care Teams Trommel Tender Relationship Specialty Start Date End Date Casey Berry II, DO PCP - General 11/22/06 08/17/19 Stephani Aleman MD PCP - General Family Medicine 08/18/19 09/16/20 Bianka Loera CNP [address] [place] [address] PCP - General Nurse Practitioner Family 09/17/2001/10 Desiree Patrick MD [address] [place] [address] PCP - General Electrophysiology 02/23/22 03/09/22 Desiree Patrick MD [address] [place] [address] 08/09/17 Farrah Nicole APRN,IT COORDINATOR [address] [place] [address] 08/09/17 Bry Echevarria MD [address] [place] [phone] 08/09/17 Casey Berry II, DO 08/09/17 Shruti Vergara, RN RN Registered Nurse 08/27/20 documented as of this encounter Additional Source Comments PLEASE NOTE: Replies to this message will not be received.[facility] and [facility]
--- OUTSIDE RECORDS SUMMARY | 2024-03-09 15:38 | XMS_ITS | Encounter Summary ---
Author Organization [employer] Address [address] [place] [address] Care Team Providers Care Victims Advocate Clerk/Specialist Name Role Phone Jamal CARLISLE DO, Robert William Primary Care Provide r Unavailable Desiree Patrick MD Unavailable Farrah Nicole APRN,STACK MATCHER Unavailable Bry Echevarria MD Unavailable Jamal CARLISLE DO, Robert William Unavailable Unav Stephani Diaz MD Primary Care Provider Shruti Vergara RN Unavailable Unavailable Bianka Loera CNP Primary Care Provider [phone] Desiree Patrick MD Primary Care P rovider Encounter Details Date Type Department Care Team (Late st Contact Info) Description 08/22/2014 Historical Conversion [facility] Family Medicine [address] [place] [address] Casey Berry II, DO Social History Tobacco [...] AND PHYSICAL CRISTIAN BLEDSOE : 1945 HX: [id number] DOS: 08/22/2014 CHIEF COMPLAINT: Routine physical. HISTORY [...] alcohol. 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 ALLERGIES: PENICILLIN AND SULFA. HEALTH CARE MAINTENANCE: [...] by:Casey Berry D.O. Sep 06 2014 7:40AM WELLNESS MANAGER documented in this encounter Plan of Treatment Not on file documented as of this encounter Visit Diagnoses Not on filedocumented in this encounter Care Teams Victims Advocate Clerk/Specialist Relationship Specialty Start Date End Date Casey Berry II, DO PCP - General 11/22/06 08/17/19 Stephani Aleman MD PCP - General Family Medicine 08/18/19 09/16/20 Bianka Loera CNP [address] [facility] [place] [address] PCP - General Nurse Practitioner Family 09/17/2001/10 Desiree Patrick MD [address] [facility] [place] [address] PCP - General Electrophysiology 02/23/22 03/09/22 Desiree Patrick MD [address] [facility] [place] [address] 08/09/17 Farrah Nicole, ELECTRICAL SUPERINTENDENT,STACK MATCHER [address] [facility] [place] [address] 08/09/17 Bry Echevarria MD [facility] [place] [address] 08/09/17 Casey Berry II, DO 08/09/17 Shruti Vergara RN RN Registered Nurse 08/27/20 documented as of this encounter Additional Source Comments PLEASE NOTE: Replies to this message will not be received.[facility] and [facility]
--- OUTSIDE RECORDS SUMMARY | 2024-03-09 15:38 | XMS_ITS | Encounter Summary ---
Author Organization [facility] Address [address] [place] [address] Care Team Providers Care Belt Line Feeder Name Role Phone Unavailable Primary Care Provider Unavailabl e Reason for Visit * Reason Comments Anticoagulation Encounter Details Date Type Department Care Team (Late st Contact Info) Description 12/03/2023 Telephone Anticoagulation Centralized Services [id number] [address] [place] [phone] Thierry Lin MD [address] [place] [address] Anticoagulation Social History Tobacco Use Types [...]
--- OUTSIDE RECORDS SUMMARY | 2024-03-09 15:38 | XMS_ITS | Encounter Summary ---
Author Organization [facility] Address [address] [place] [address] Care Team Providers Care Certified Nursing Assistant Name Role Phone Jamal CARLISLE DO, Robert William Primary Care Provide r Unavailable Desiree Patrick MD Unavailable Farrah Nicole APRN,POLE INSPECTOR Unavailable Bry Echevarria MD Unavailable Jamal CARLISLE DO, Robert William Unavailable Unav Stephani Diaz MD Primary Care Provider Shruti Vergara RN Unavailable Unavailable Bianka Loera CNP Primary Care Provider Desiree Patrick MD Primary Care P rovider Encounter Details Date Type Department Care Team (Late st Contact Info) Description [address] [address] Social History Tobacco Use Types Packs/Day Years [...] filedocumented in this encounter Care Teams Certified Nursing Assistant Relationship Specialty Start Date End Date Casey Berry II, DO PCP - General 11/22/06 08/17/19 Stephani Aleman MD PCP - General Family Medicine 08/18/19 09/16/20 Bianka Loera COMMUNITY OUTREACH ADVOCATE [address] [place] [address] [address] [place] [phone] PCP - General Nurse Practitioner Family 09/17/20 712/31 Desiree Patrick MD [address] [place] [address] PCP - General Electrophysiology 02/23/22 03/09/22 Desiree Patrick MD [address] [place] [address] 08/09/17 Farrah Nicole APRN,POLE INSPECTOR [address] [place] [address] 08/09/17 Bry Echevarria MD [address] [place] [address] 08/09/17 Casey Berry II, DO 08/09/17 Shruti Vergara RN RN Registered Nurse 08/27/20 documented as of this encounter Additional Source Comments PLEASE NOTE: Replies to this message will not be received.[facility] and [facility]
--- OUTSIDE RECORDS SUMMARY | 2024-03-09 15:38 | XMS_ITS | Clinical Summary ---
Author Organization [facility] Address [address] [place] [address] Care Team Providers Care Electroplating Technician Name Role Phone Unavailable Primary Care Provider Unavailabl e Source Comments You are receiving this document as you are listed as the primary care provider,follow-up provider, or the patient has been referred to you for consultation.This is in compliance with the Medicare and[facility] Hospital[facility] EHR Incentive Program,which states Providers who transition their patient to another setting of careor provider of care or refers their patient to another provider of care shouldprovide summary care record for each transition of care or referral. [facility] Allergies Active Allergy Reactions Criticality Noted Date [...] Type Department Care Team Description 02/15/2024 Telephone [facility] [address] [employer] [place] [address] Ashely El, RN WEIGHT LOSS from Last 3 Months Social History Tobacco [...] Comments Hep C Screening (Preventive Services) 1945 MTM Covered 1945 Adult Preventive Visit 1962 COVID-19 Vaccine [...]
--- OUTSIDE RECORDS SUMMARY | 2024-03-09 15:38 | XMS_ITS | Encounter Summary ---
Author Organization [facility] Address [address] [place] [address] Care Team Providers Care Fire Protection Inspector Name Role Phone Unavailable Primary Care Provider Unavailabl e Reason for Visit * Reason Comments WEIGHT LOSS Encounter Details Date Type Department Care Team (Late st Contact Info) Description 02/15/2024 Telephone [facility] [address] [place] [address] Ashely El, RN WEIGHT LOSS Social History [...]
--- OUTSIDE RECORDS SUMMARY | 2024-03-09 15:38 | XMS_ITS | Encounter Summary ---
Author Organization [facility] Address [address] [place] [address] Care Team Providers Care Membership Sales Advisor Name Role Phone Jamal CARLISLE DO, Robert William Primary Care Provide r Unavailable Desiree Patrick MD Unavailable Farrah Nicole APRN,DAY HABILITATION SPECIALIST Unavailable Byr Echevarria MD Unavailable [phone] Jamal CARLISLE DO, Robert William Unavailable Unav Stephani Diaz MD Primary Care Provider Shruti Vergara RN Unavailable Unavailable Bianka Loera CNP Primary Care Provider Desiree Patrick MD Primary Care P rovider Encounter Details Date Type Department Care Team (Late st Contact Info) Description 11/19/2015 HIM Cotton Classer Aide [facility] [place] [address] [place] [address] Dionisio Meneses MD [address] [place] [address] Social History Tobacco Use Types [...] ADULT WITH OR WITHOUT CONTRAST PERFORMED BY: [place] [place] SITE: [place] [place] INTERPRETED BY: [facility]ASCULAR [place], [place] TRANSTHORACIC ECHOCARDIOGRAM REPORT REFERRING DIAGNOSIS: Atrial [...] comparison. Note: This study was performed by [facility] [employer] [facility] [place]. Only the interpretation wasperformed at the [facility]. Electronically signed Dionisio Meneses MD, [facility] [employer] , 04:04 P A vd/Doc#: [id number] cc: Adult Normal Value Adult Patient Values [...] kg Blood pressure: 126/75 Previous study: -- Clinical Ob: Lisa documented in this encounter Plan of [...] - 11/19/2015 12:00 AM CDT PERFORMED BY: [place] [place] SITE: [place] [place] INTERPRETED BY: [facility] V[facility]ULAR [place], [place] TRANSTHORACIC ECHOCARDIOGRAM REPORT REFERRING DIAGNOSIS: Atrial [...] comparison. Note: This study was performed by [facility].Only the interpretation was performed at the [facility]. Electronically signed Dionisio Meneses MD, [facility] [employer] , 04:04 P A vd/Doc#: [id number] cc: Adult Normal Value Adult Patient Values [...] kg Blood pressure: 126/75 Previous study: -- Clinical Ob: Lisa Dionisio Meneses MD CAR ULTRASOUND documented in this encounter Visit Diagnoses Not on filedocumented in this encounter Care Teams Membership Sales Advisor Relationship Specialty Start Date End Date Casey Berry II, DO PCP - General 11/22/06 08/17/19 Stephani Aleman MD PCP - General Family Medicine 08/18/19 09/16/20 Bianka Loera HEALTH SAFETY COORDINATOR [address] [place] [address] [address] [place] [phone] PCP - General Nurse Practitioner Family 09/17/20 712/31 Desiree Patrick MD [address] [place] [address] PCP - General Electrophysiology 02/23/22 03/09/22 Desiree Patrick MD [address] [place] [address] 08/09/17 Farrah Nicole APRN,DAY HABILITATION SPECIALIST [address] [place] [phone] 08/09/17 Bry Echevarria MD [address] [place] [phone] 08/09/17 Casey Berry II, DO 08/09/17 Shruti Vergara RN RN Registered Nurse 08/27/20 documented as of this encounter Additional Source Comments PLEASE NOTE: Replies to this message will not be received.[facility] and [facility]
[2024-03-09 18:29] LABS: Potassium* 4.4 mmol/L (3.6-5.1)
[2024-03-09 18:32] LABS: Blood Urea Nitrogen* 15 mg/dL (7-30); Creatinine* 0.8 mg/dL (0.5-1.5); Estimated Glomerular Filt Rate 90 ml/min
== END 2024-03-09 15:24 | disposition home or self-care (01) ==
LOC: NPINS 15:23
PROVIDERS: PCP Family Medicine; Visit Provider Family Medicine
DX: I48.0 Paroxysmal atrial fibrillation (principal)
CPT/HCPCS: 82565; 84132; 84520; 85610

== ENCOUNTER 2024-03-16 16:15 | Outpatient (CLI) | payer BC, SELFPAY ==
--- OUTSIDE RECORDS SUMMARY | 2024-03-16 16:19 | XMS_ITS | Encounter Summary ---
Author Organization [facility] Address [address] [place] [address] Care Team Providers Care Mixed Crop And Livestock Farm Worker Name Role Phone Jamal CARLISLE DO, Robert William Primary Care Provide r Unavailable Desiree Patrick MD Unavailable Farrah Nicole APRN,PAIN MANAGEMENT PHYSICIAN Unavailable [phone] Bry Echevarria MD Unavailable Jamal CARLISLE DO, Robert William Unavailable Unav Stephani Diaz MD Primary Care Provider Shruti Vergara RN Unavailable Unavailable Bianka Loera CNP Primary Care Provider Desiree Patrick MD Primary Care P rovider Encounter Details Date Type Department Care Team (Late st Contact Info) Description 06/23/2018 Historical Conversion [facility] Family Medicine [address] [place] [address] Moon Maloney MD Social History Tobacco Use [...] Comments Blood Pressure 120/62 06/23/2018 12:00 AM CUSTOMER EXPERIENCE ASSOCIATE Pulse - - Temperature - - Respiratory Rate - - Oxygen Saturation - - Inhaled Oxygen Concentration - - Weight 93.5 kg (206 lb 2.1 oz) 06/23/2018 12:00 AM CUSTOMER EXPERIENCE ASSOCIATE Height - - Body Mass Index 27.2 06/20/2018 8:23 AM CUSTOMER EXPERIENCE ASSOCIATE documented in this encounter Functional Status Functional [...] on filedocumented in this encounter Care Teams Mixed Crop And Livestock Farm Worker Relationship Specialty Start Date End Date Casey Berry II, DO PCP - General 11/22/06 08/17/19 Stephani Aleman MD PCP - General Family Medicine 08/18/19 09/16/20 Bianka Loera CNP [address] [facility] [place] [phone] PCP - General Nurse Practitioner Family 09/17/2001/10 [place] [address] [place] [phone] PCP - General Electrophysiology 02/23/22 03/09/22 Desiree Patrick MD [address] [place] [address] 08/09/17 Farrah Nicole APRN,PAIN MANAGEMENT PHYSICIAN [address] [place] [address] 08/09/17 Bry Echevarria MD [address] [place] [address] 08/09/17 Casey Berry II, DO 08/09/17 Srhuti Vergara RN RN Registered Nurse 08/27/20 documented as of this encounter Additional Source Comments PLEASE NOTE: Replies to this message will not be received.[facility] and [facility]
--- OUTSIDE RECORDS SUMMARY | 2024-03-16 16:19 | XMS_ITS ---
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 Past Plans No past plan information found. Radiation Treatments * No radiation treatments are documented for this patient in [facility]. Treatments may have been administered in another [...]
--- OUTSIDE RECORDS SUMMARY | 2024-03-16 16:19 | XMS_ITS | Encounter Summary ---
Author Organization [employer] Address [address] [place] [address] Care Team Providers Care Parliamentary Counsel Name Role Phone Jamal CARLISLE DO, Robert William Primary Care Provide r Unavailable Desiree Patrick MD Unavailable Farrah Nicole APRN,STAFFING EXECUTIVE Unavailable [phone] Bry Echevarria MD Unavailable [phone] Jamal CARLISLE DO, Robert William Unavailable Unav Stephani Diaz MD Primary Care Provider Shruti Vergara RN Unavailable Unavailable Bianka Loera CNP Primary Care Provider Desiree Patrick MD Primary Care P rovider Encounter Details Date Type Department Care Team (Late st Contact Info) Description 09/08/2018 Historical Conversion [facility] Family Medicine [address] [place] [address] Casey Berry II, DO Social History Tobacco [...] Comments Blood Pressure 122/74 09/08/2018 12:00 AM AUTOMATIC CHIEF Pulse - - Temperature - - Respiratory Rate - - Oxygen Saturation - - Inhaled Oxygen Concentration - - Weight 92.8 kg (204 lb 9.7 oz) 09/08/2018 12:00 AM AUTOMATIC CHIEF Height 184 cm (6' 0.44) 09/08/2018 12:00 AM AUTOMATIC CHIEF Body Mass Index 27.41 09/08/2018 12:00 AM AUTOMATIC CHIEF documented in this encounter Functional Status Functional [...] on filedocumented in this encounter Care Teams Parliamentary Counsel Relationship Specialty Start Date End Date Casey Berry II, DO PCP - General 11/22/06 08/17/19 Stephani Aleman MD PCP - General Family Medicine 08/18/19 09/16/20 Bianka Loera CNP [address] [facility] [address] [place] [address] PCP - General Nurse Practitioner Family 09/17/2001/10 [place] [address] [place] [address] PCP - General Electrophysiology 02/23/22 03/09/22 Desiree Patrick MD [address] [facility] [place] [address] 08/09/17 Farrah Nicole APRN,STAFFING EXECUTIVE [address] [facility] [place] [address] 08/09/17 Bry Echevarria MD [address] [place] [address] [place] [address] 08/09/17 Casey Berry II, DO 08/09/17 Shruti Vergara RN RN Registered Nurse 08/27/20 documented as of this encounter Additional Source Comments PLEASE NOTE: Replies to this message will not be received.[facility] and [facility]
--- OUTSIDE RECORDS SUMMARY | 2024-03-16 16:19 | XMS_ITS | Encounter Summary ---
Author Organization [employer] Address [address] [place] [address] Care Team Providers Care Security Sales Consultant Name Role Phone Jamal CARLISLE DO, Robert William Primary Care Provide r Unavailable Desiree Patrick MD Unavailable Farrah Nicole APRN,WATER TAXI DRIVER Unavailable Bry Echevarria MD Unavailable [phone] Jamal CARLISLE DO, Robert William Unavailable Unav Stephani Diaz MD Primary Care Provider [phone] Shruti Vergara RN Unavailable Unavailable Bianka Loera CNP Primary Care Provider Desiree Patrick MD Primary Care P rovider Encounter Details Date Type Department Care Team (Late st Contact Info) Description 09/19/2018 Historical Conversion [facility] Family Medicine [address] [place] [phone] Trish Barone, PT Social History Tobacco Use [...] by:Trish Barone PT Oct 12 2018 5:27PM ANTENNA INSTALLER AMENDMENTS: 1. Patient received 4 feet of green theraband on this date of service. Electronically signed by:Trish Barone PT Oct 12 2018 5:28PM ANTENNA INSTALLER * Trish Barone, PT - 10/03/2018 12:00 [...] per day with the dogs. He attends [employer] with his 2 times a week. OBJECTIVE: [...] by:Trish Barone PT Oct 03 2018 1:23PM ANTENNA INSTALLER * Trish Barone, PT - 09/19/2018 12:00 AM CDT CRISTIAN BLEDSOE : 1945 HX: [id number] DOS: 09/19/2018 REFERRING PROVIDER: Casey Berry D.O. 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 He is currently [...] PATIENT RECEIVED: Patient received 30 minutes of vktq-[id number] evaluation with three or more comorbidities and three or more elements addressed. Clinical presentation is evolving and clinical complexity is moderate. Patient also received canalith repositioning maneuvers on this date. Trish Barone, PT, [place] #[id number] Electronically signed by:Trish Barone PT Sep 26 2018 8:37AM ANTENNA INSTALLER documented in this encounter Plan of Treatment Not on file documented as of this encounter Visit Diagnoses Not on filedocumented in this encounter Care Teams Security Sales Consultant Relationship Specialty Start Date End Date Casey Berry II, DO PCP - General 11/22/06 08/17/19 Stephani Aleman MD PCP - General Family Medicine 08/18/19 09/16/20 Bianka Loera CNP [address] [place] [address] [address] [place] [phone] PCP - General Nurse Practitioner Family 09/17/2001/10 Desiree Patrick MD [address] [place] [address] PCP - General Electrophysiology 02/23/22 03/09/22 Desiree Patrick MD [address] [place] [address] 08/09/17 Farrah Nicole APRN,WATER TAXI DRIVER [address] [place] [address] 08/09/17 Bry Echevarria MD [place] [address] 08/09/17 Casey Berry II, DO 08/09/17 Shruti Vergara RN RN Registered Nurse 08/27/20 documented as of this encounter Additional Source Comments PLEASE NOTE: Replies to this message will not be received.Critical access hospital and [facility]
--- OUTSIDE RECORDS SUMMARY | 2024-03-16 16:19 | XMS_ITS | Referral Summary ---
Author Organization [employer] Address [address] [place] [address] Care Team Providers Care Clinical Engineering Director Name Role Phone Desiree Patrick MD Unavailable Farrah Nicole APRN,BUFFER NICKEL Unavailable [phone] Bry Echevarria MD Unavailable [phone] Jamal CARLISLE DO, Robert William Unavailable Unav [...] ipratropium (ATROVENT) 21 mcg (0.03 %) nasal [place], Non-AerosolIndicatio ns:PND (post-nasal drip) 2 Sprays by [...] 5 mg oral TabletIndications:Pa roxysmal atrial fibrillation (HCC),technician terminal and repeater (current) use of anticoagulants TAKE 1 TABLET [...] 11/09/2018 Muscle tightness 11/09/2018 Bilateral foot-drop 11/09/2018 technician terminal and repeater (current) use of anticoagulants 2018 Encounter for monitoring dofetilide therapy 06/11 Atrial fibrillation (HCC) 06/21/2017 Essential hypertension 10/21/2016 Thoracic ascending aortic aneurysm 06/11/2016 Overview: 4.2 x 4.[address] [facility] CT Atrial flutter 11/15/2015 Esophageal [...] any clubs o r organizations such as alevism groups, unions, fraternal or athletic groups, or [...] and heating? Not hard at all 04/04/2021 [facility]at ional [facility] - [...] Master's degree (e.g., MA, MS, Mirlande, MEd, TUBE BUILDING MACHINE OPERATOR, ROHIT) 08/19/2020 Sex and Gender [...] HEPATITIS C AB Routine 08/26/2021 10:09 AM TANDEM MILL ROLLER Need for hepatitis C screening test COLONOSCOPY Routine 02/27/2020 8:05 AM CDT LIPID PANEL Routine 08/18/2019 9:23 AM TANDEM MILL ROLLER Screening for lipid disorders from Last 3 Months or Most Recently Relevant to Health Maintenance Results * (ABNORMAL) HEPATITIS C AB (08/26/2021 10:09 AM TANDEM MILL ROLLER) HCV Ab Reactive( A) Nonreactive 08/26/2021 7:41 PM TANDEM MILL ROLLER [facility] Comment: This is a reportable disease sent to the [facility]. 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 State of associated disease not determined. Blood VENOUS BLOOD / Unknown Venipuncture / Unknown 08/26/2021 10:09 AM TANDEM MILL ROLLER 08/26/2021 10:09 AM TANDEM MILL ROLLER Bianka Loera [facility] SEROLOGY ORDERAB LES Performing Organization Address [facility] Co de Phone Number [facility] [address] [place] [address] * COLONOSCOPY (02/27/2020 8:05 AM CDT) 02/27/2020 8:05 AM CDT Narrative [facility] ENDO - 02/27/2020 9:20 AM CDT [facility] Patient Name: Rohan Carroll Procedure Date: 02/27/2020 8:05 AM Date of : 1945 Admit Type: Outpatient Age: 74 Room: [facility] Gender: Male Note Status: Finalized Attending [...] of the bowel preparation was ?excellent. The [id number] was introduced through the anus ?and advanced [...] 8:05 AM Stephani Aleman MD GI PROCEDURES [employer] ENDO * (ABNORMAL) LIPID PANEL (08/18/2019 9:23 AM TANDEM MILL ROLLER) Cholesterol 96 0 - 200 mg/dL 08/18/2019 7:32 PM TANDEM MILL ROLLER [facility] Triglycerides 65 30 - 150 mg/dL 08/18/2019 7:32 PM TANDEM MILL ROLLER [facility] Cholesterol, LDL (Calculated) 45 0 - 159 mg/dL 08/18/2019 7:32 PM TANDEM MILL ROLLER [facility] Cholesterol, HDL 38(L) >40 mg/dL 08/18/19 20 7:32 PM TANDEM MILL ROLLER [facility] Cholesterol, vLDL 13 mg/dL 020 7:32 PM [facility] Blood VENOUS BLOOD SPECIMEN / Unknown Venipuncture / Unknown 08/18/2019 9:23 AM TANDEM MILL ROLLER 08/18/2019 9:23 AM TANDEM MILL ROLLER Stephani Aleman MD LAB CHEMISTRY ORDERA JOSH [facility] [employer] [facility] [address] [place], [place] [id number] from Last 3 Months or Most Recently Relevant to Health Maintenance Advance Directives Documents on File Type Date Recorded Patient Trial Mgr Expl anation Advanced Directives 08/23/2014 3:05 PM [facility] * Full Code (Latest Code Status on File) Date Activated Date Inactivated Comments 06/21/2017 3:50 PM 06/24/2017 4:37 PM * Full Code Date Activated Date Inactivated Comments 10/19/2016 4:45 PM 10/20/2016 8:57 PM * Full Code Date Activated Date Inactivated Comments 11/15/2015 11:16 PM 11/16/2015 11:46 AM Care Teams Clinical Engineering Director Relationship Specialty Start Date End Date Desiree Patrick MD [address] [place] [phone] 08/09/17 Farrah Nicole APRN,BUFFER NICKEL [address] [place] [phone] 08/09/17 Bry Echevarria MD [address] [place] [phone] 08/09/17 Casey Berry II, DO 08/09/17 Shruti Vergara, RN RN Registered Nurse 08/27/20 Additional Source Comments PLEASE NOTE: Replies to this message will not be received.[facility] and [facility]
--- OUTSIDE RECORDS SUMMARY | 2024-03-16 16:19 | XMS_ITS | Encounter Summary ---
Author Organization [employer] Address [address] [place] [address] Care Team Providers Care Track Fitter Name Role Phone Jamal CARLISLE DO, Robert William Primary Care Provide r Unavailable Desiree Patrick MD Unavailable Farrah Nicole APRN,DIRECTOR OF SOLUTIONS ARCHITECTURE Unavailable Bry Echevarria MD Unavailable [phone] Jamal CARLISLE DO, Robert William Unavailable Unav Stephani Diaz MD Primary Care Provider Shruti Vergara RN Unavailable Unavailable Bianka Loera CNP Primary Care Provider Desiree Patrick MD Primary Care P rovider Encounter Details Date Type Department Care Team (Late st Contact Info) Description 09/08/2018 Historical Conversion [facility] Family Medicine [address] [place] [id number] Casey Berry II, DO Social History Tobacco [...] DAILY CBC; Status:Resulted - Requires Verification; Done: [id number] 09:12AM Comprehensive Metabolic Panel; Status:Resulted - Requires Verification; Done: 99Evp1041 09:12AM Lipid Panel; Status:Resulted - Requires Verification; Done: 08Sep2018 09:12AM Vitamin D Total [facility]; Status:Resulted - Requires Verification; Done: 08Sep2018 09:12AM Ataxia Drawing Fee; Status:Complete; Done: 08Sep2018 Balance Center Consult Consult Only Evaluation and Treatment Status: Hold For - Required information Requested for: [id number] Phone Number to Contact Patient: : See chart to Provider, Practice or Agency: : [facility] Folate; Status:Resulted - Requires Verification; [...] 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 HEALTH CARE MAINTENANCE: Colonoscopy in 2009, due in 2019. Current Meds 1. Dofetilide 250 MCG Oral Capsule; TAKE 1 CAPSULE EVERY 12 HOURS; Last Rx:[id number] Ordered 2. Jantoven 5 MG Oral Tablet; TAKE 1 1/2 TABLET BY MOUTH ON WEDNESDAYS, AND 1 TABLET BY MOUTH ALL OTHER DAYS OF THE WEEK DIRECTED; Therapy: 13Apr2018 to (Evaluate:28Sep2018) Requested for: 90Qgh5299; Last Rx:[id number] Ordered 3. Lisinopril 10 MG Oral Tablet; TAKE ONE TABLET DAILY; Therapy: 18Oct2017 to Recorded 4. Metoclopramide HCl - 5 MG Oral Tablet; TAKE 1 TABLET BY MOUTH THREE TIMES DAILY WITH MEALS NEEDED; Therapy: 10Sep2014 to (Evaluate:83Rwu8578) Requested for: 66Phj9599; Last Rx:[id number] Ordered 5. Oxybutynin Chloride ER 10 MG Oral Tablet Extended Release 24 Hour; TAKE 1 TABLET DAILY; Therapy: 76Ofz8230 to (Evaluate:47Eap5860) Requested for: 84Voq6460; Last Rx:[id number] Ordered 6. Polyethylene Glycol 3350 Oral Powder; take 17 grams in 8 ounces of fluid once daily as needed for constipation; Therapy: 21Pvu3785 to (Evaluate:27May2018); Last Rx:[id number] Ordered 7. Sildenafil Citrate 100 MG Oral Tablet; Take 1/2-1 tab 1 hour before sexual activity; Therapy: 81Gwj2341 to (Last Rx:[id number]) Requested for: 77Qmc6733 Ordered 8. Triamcinolone Acetonide 0.1 % External Lotion; APPLY 2-3 TIMES DAILY TO AFFECTED AREA(S); Therapy: 17Wya9651 to (Last Rx:[id number]) Requested for: 72Ish6225 Ordered Allergies 1. Penicillins 2. Sulfa Drugs [...] Prostate firm, no masses, nontender. Results/Data CBC [id number] 09:12AM Jamal Casey FASTING Test Name Result [...] 0.9 L 1.0-4.7 Vitamin D Total [facility] [id number] 09:12 Casey Berry Test Name Result Flag Reference Vitamin D Total - [facility] 20.9 ng/ml L 30-100 Deficiency <10ng/mL Insufficiency 10-29 ng/mL Sufficiency 30-100 ng/mL Possible Toxicity >100 ng/mL TSH [id number] 09:12 Casey Berry FASTING Test Name Result Flag Reference TSH 1.670 uIU/ml 0.30-4.70 Vitamin B12 08Sep2018 09:12AM Casey Berry Test Name Result Flag Reference Vitamin B12 382 pg/ml 200-1000 Folate [id number] 09:12AM Casey Berry Test Name Result Flag Reference Folate >20.0 ng/ml H 6.6-19.9 Signatures Casey Berry II, D.Veena/jaj-28 REVISED NOTE 09/12/2018/naomie Electronically signed by : Casey Berry DO; Sep 09 2018 11:14AM HOG SAWYER Electronically signed by : Casey Berry DO; Sep 12 2018 9:09AM HOG SAWYER documented in this encounter Plan of Treatment Not on file documented as of this encounter Visit Diagnoses Not on filedocumented in this encounter Care Teams Track Fitter Relationship Specialty Start Date End Date Casey Berry II, DO PCP - General 11/22/06 08/17/19 Stephani Aleman MD PCP - General Family Medicine 08/18/19 09/16/20 Bianka Loera REIMBURSEMENT COORDINATOR [address] [place] [phone] PCP - General Nurse Practitioner Family 09/17/20 712/31 Desiree Patrick MD [address] [place] [address] PCP - General Electrophysiology 02/23/22 03/09/22 Desiree Patrick MD [address] [place] [address] 08/09/17 Farrah Nicole APRN,DIRECTOR OF SOLUTIONS ARCHITECTURE [address] [place] [address] 08/09/17 Bry Echevarria MD [facility] [place] [address] 08/09/17 Casey Berry II, DO 08/09/17 Shruti Vergara RN RN Registered Nurse 08/27/20 documented as of this encounter Additional Source Comments PLEASE NOTE: Replies to this message will not be received.[facility] and [facility]
--- OUTSIDE RECORDS SUMMARY | 2024-03-16 16:19 | XMS_ITS | Encounter Summary ---
Author Organization [facility] [employer] Address [address] [place] [address] Care Team Providers Care Special Education Director Name Role Phone Desiree Patrick MD Unavailable Farrah Nicole APRN, CNS Unavailable [phone] Bry Echevarria MD Unavailable Jamal CARLISLE DO, Robert William Unavailable Unav ailable Shruti Vergara RN Unavailable Unavailable Desiree Patrick MD Primary Care P rovider Encounter Details Date Type Department Care Team (Late st Contact Info) Description 02/25/[address] [phone] Social History Tobacco Use Types Packs/Day Years [...] Not hard at all 04/04/2021 [facility] [place] of Occupat ional Health - Occupational Stress [...] Master's degree (e.g., MA, MS, Mirlande, MEd, SHOP LABORER, ROHIT) 08/19/2020 Sex and Gender Information Value [...] in this encounter Care Teams Special Education Director Relationship Specialty Start Date End Date Desiree Patrick MD [address] [place] [address] PCP - General Electrophysiology 02/23/22 03/09/22 Desiree Patrick MD [address] [place] [address] 08/09/17 Farrah Nicole APRN,SHIPFITTER HELPER [address] [place] [address] 08/09/17 Bry Echevarria MD [address] [place] [address] 08/09/17 Casey Berry II, DO 08/09/17 Shruti Vergara RN RN Registered Nurse 08/27/20 documented as of this encounter Additional Source Comments PLEASE NOTE: Replies to this message will not be received.[facility] and [facility]
--- OUTSIDE RECORDS SUMMARY | 2024-03-16 16:19 | XMS_ITS | Encounter Summary ---
Author Organization [facility] [employer] [facility] Address [address] [place] [address] Care Team Providers Care Geophysical Data Technician Name Role Phone Jamal CARLISLE DO, Robert William Primary Care Provide r Unavailable Desiree Patrick MD Unavailable Farrah Nicole APRN,PROGRAM DEVELOPER Unavailable [phone] Bry Echevarria MD Unavailable Jamal CARLISLE DO, Robert William Unavailable Unav Stephani Diaz MD Primary Care Provider Shruti Vergara RN Unavailable Unavailable Bianka Loera CNP Primary Care Provider Desiree Patrick MD Primary Care P rovider Encounter Details Date Type Department Care Team (Late st Contact Info) Description 02/06/2019 HIM Enzyme Chemist [facility] Heart & Vascular [address] [address] Rakesh Williamson Chi, MD Social History Tobacco [...] ADULT WITH OR WITHOUT CONTRAST PERFORMED BY: [facility] [place] SITE: [facility] [place] INTERPRETED BY: [facility], [place] TRANSTHORACIC ECHOCARDIOGRAM REPORT REFERRING DIAGNOSIS: Sleep [...] function. Note: This study was performed by [employer] [facility]. Only the interpretation was performed at the [facility] [place]. Electronically signed Rakesh Williamson MD Metal Stamping Machine Operator , 06:42 A A felipa/Doc#: [id number] cc: Antoine Fitzpatrick MD Adult Normal Value [...] Blood pressure: 139/86 mmHg Previous study: 01/06/2017 Seaman: KRISTA documented in this encounter Plan of [...] - 02/06/2019 12:00 AM CDT PERFORMED BY: [place] [place] SITE: [facility] [place] INTERPRETED BY: [facility], [place] TRANSTHORACIC ECHOCARDIOGRAM REPORT REFERRING DIAGNOSIS: Sleep [...] function. Note: This study was performed by [employer] alessio Welsh. Only theinterpretation was performed at the [facility]. Electronically signed Rakesh Williamson MD Metal Stamping Machine Operator , 06:42 A A felipa/Doc#: [id number] cc: Antoine Fitzpatrick MD Adult Normal Value [...] Blood pressure: 139/86 mmHg Previous study: 01/06/2017 Seaman: KRISTA Antoine Fitzpatrick MD,PHD CAR ULTRASOU [place] documented in this encounter Visit Diagnoses Not on filedocumented in this encounter Care Teams Geophysical Data Technician Relationship Specialty Start Date End Date Casey Berry II, DO PCP - General 11/22/06 08/17/19 Stephani Aleman MD PCP - General Family Medicine 2/7/20 3/8/21 Bianka Loera, VP OF TECHNOLOGY [address] [place] [phone] PCP - General Nurse Practitioner Family 09/17/20 712/31 Desiree Patrick MD [address] [place] [address] PCP - General Electrophysiology 02/23/22 03/09/22 Desiree Patrick MD [address] [place] [address] 08/09/17 Farrah Nicole APRN,PROGRAM DEVELOPER [address] [place] [address] 08/09/17 Bry Echevarria MD [facility] [place] [phone] 08/09/17 Casey Berry II, DO 08/09/17 Shruti Vergara, RN RN Registered Nurse 08/27/20 documented as of this encounter Additional Source Comments PLEASE NOTE: Replies to this message will not be received.[facility] and [facility]
--- OUTSIDE RECORDS SUMMARY | 2024-03-16 16:19 | XMS_ITS | Encounter Summary ---
Author Organization [employer] Address [address] [place] [address] Care Team Providers Care Hollock Maker Name Role Phone Jamal CARLISLE DO, Robert William Primary Care Provide r Unavailable Desiree Patrick MD Unavailable Farrah Nicole APRN,CAN LINE EXAMINER Unavailable Bry Echevarria MD Unavailable Jamal CARLISLE DO, Robert William Unavailable Unav Stephani Diaz MD Primary Care Provider Shruti Vergara RN Unavailable Unavailable Bianka Loera CNP Primary Care Provider Desiree Patrick MD Primary Care P rovider Encounter Details Date Type Department Care Team (Late st Contact Info) Description 07/22/2018 Historical Conversion [facility] Family Medicine [address] [place] [phone] Moon Maloney MD Social History Tobacco Use [...] Comments Blood Pressure 120/58 07/22/2018 12:00 AM FURNACE ERECTOR Pulse - - Temperature - - Respiratory Rate - - Oxygen Saturation - - Inhaled Oxygen Concentration - - Weight 93.8 kg (206 lb 12.7 oz) 019 12:00 AM FURNACE ERECTOR Height - - Body Mass Index 27.28 06/20/2018 8:23 AM FURNACE ERECTOR documented in this encounter Functional Status Functional [...] on filedocumented in this encounter Care Teams Hollock Maker Relationship Specialty Start Date End Date Casey Berry II, DO PCP - General 11/22/06 08/17/19 Stephani Aleman MD PCP - General Family Medicine 08/18/19 09/16/20 Bianka Loera CNP [address] [facility] [address] [place] [phone] PCP - General Nurse Practitioner Family 09/17/2001/10 [place] [address] [place] [address] PCP - General Electrophysiology 02/23/22 03/09/22 Desiree Patrick MD [address] [place] [address] 08/09/17 Farrah Nicole APRN,CAN LINE EXAMINER [address] [place] [address] 08/09/17 Bry Echevarria MD [address] [place] [address] 08/09/17 Casey Berry II, DO 08/09/17 Shruti Vergara RN RN Registered Nurse 08/27/20 documented as of this encounter Additional Source Comments PLEASE NOTE: Replies to this message will not be received.[facility] and [facility]
--- OUTSIDE RECORDS SUMMARY | 2024-03-16 16:19 | XMS_ITS | Clinical Summary ---
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 More than 4 times per year 04/04/2021 Do you belong to any clubs o r organizations such as jew groups, unions, fraternal or athletic groups, or [...] and heating? Not hard at all 04/04/2021 [facility] of Occupat ional Health - Occupational Stress [...] Master's degree (e.g., MA, MS, Mirlande, MEd, JOINERY FACTORY WORKER, ROHIT) 08/19/2020 Sex and Gender Information [...] HEPATITIS C AB Routine 08/26/2021 10:09 AM YARD LABORER Need for hepatitis C screening test COLONOSCOPY Routine 02/27/2020 8:05 AM CDT LIPID PANEL Routine 08/18/2019 9:23 AM YARD LABORER Screening for lipid disorders from Last 3 Months or Most Recently Relevant to Health Maintenance Results * (ABNORMAL) HEPATITIS C AB (08/26/2021 10:09 AM YARD LABORER) HCV Ab Reactive( A) Nonreactive 08/26/2021 7:41 PM YARD LABORER [facility] Comment: This is a reportable disease sent to the [place] [facility]. 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 State of associated disease not determined. Blood VENOUS BLOOD / Unknown Venipuncture / Unknown 08/26/2021 10:09 AM YARD LABORER 08/26/2021 10:09 AM YARD LABORER Bianka Toussaint Edlnoah AUTOMOBILE SEAT COVER INSTALLER LAB SEROLOGY ORDERAB LES [facility] [address] [place] [address] * COLONOSCOPY (02/27/2020 8:05 AM CDT) 02/27/2020 8:05 AM CDT Narrative [facility] ENDO - 02/27/2020 9:20 AM CDT [facility] Patient Name: Rohan Carroll Procedure Date: 02/27/2020 8:05 AM Date of : 1945 Admit Type: Outpatient Age: 74 Room: [facility] Gender: Male Note Status: Finalized [...] of the bowel preparation was ?excellent. The [id number] was introduced through the anus ?and advanced [...] 8:05 AM Stephani Aleman MD GI PROCEDURES [employer] ENDO * (ABNORMAL) LIPID PANEL (08/18/2019 9:23 AM YARD LABORER) Cholesterol 96 0 - 200 mg/dL 08/18/2019 7:32 PM YARD LABORER [facility] Triglycerides 65 30 - 150 mg/dL 08/18/2019 7:32 PM YARD LABORER [facility] Cholesterol, LDL (Calculated) 45 0 - 159 mg/dL 08/18/2019 7:32 PM [facility] Cholesterol, HDL 38(L) >40 mg/dL 08/18/19 20 7:32 PM [facility] Cholesterol, vLDL 13 mg/dL 020 7:32 PM [facility] Blood VENOUS BLOOD SPECIMEN / Unknown Venipuncture / Unknown 08/18/2019 9:23 AM YARD LABORER 08/18/2019 9:23 AM YARD LABORER Stephani Aleman MD LAB CHEMISTRY [facility] [address] [place] [address] from Last 3 Months or Most Recently Relevant to Health Maintenance Advance Directives Documents on File Type Date Recorded Patient Life Insurance Agent Expl anation Advanced Directives 08/23/2014 3:05 PM [facility] * Full Code (Latest Code Status on File) Date Activated Date Inactivated Comments 06/21/2017 3:50 PM 06/24/2017 4:37 PM * Full Code Date Activated Date Inactivated Comments 10/19/2016 4:45 PM 10/20/2016 8:57 PM * Full Code Date Activated Date Inactivated Comments 11/15/2015 11:16 PM 11/16/2015 11:46 AM Care Teams Pie Chef Relationship Specialty Start Date End Date Desiree Patrick MD [address] [place] [place] [address] 08/09/17 Farrah Nicole APRN,[facility] [address] [place] [address] 08/09/17 Bry Echevarria MD [address] [place] [address] [place] [address] 08/09/17 Casey Berry II, DO 08/09/17 Shruti Vergara RN RN Registered Nurse 08/27/20 Additional Source Comments PLEASE NOTE: Replies to this message will not be received.[facility]
--- OUTSIDE RECORDS SUMMARY | 2024-03-16 16:19 | XMS_ITS | Encounter Summary ---
Author Organization [employer] Address [address] [place] [address] Care Team Providers Care Practical Ministries Professor Name Role Phone Jamal CARLISLE DO, Robert William Primary Care Provide r Unavailable Desiree Patrick MD Unavailable Farrah Nicole APRN,LEAN SPECIALIST Unavailable Bry Echevarria MD Unavailable [phone] Jamal CARLISLE DO, Robert William Unavailable Unav Stephani Diaz MD Primary Care Provider Shruti Vergara RN Unavailable Unavailable Bianka Loera CNP Primary Care Provider Desiree Patrick MD Primary Care P rovider Encounter Details Date Type Department Care Team (Late st Contact Info) Description 06/23/[address] [facility] Family Medicine [address] [place] [id number] Moon Maloney MD Social History Tobacco Use [...] MD - 07/22/2018 12:00 AM CST UROLOGY [facility] CRISTIAN BLEDSOE : 1945 HX: [id number] DOS: 07/22/2018 SUBJECTIVE: Cristian saw me on [...] Moon Maloney M.D./la-15 cc: Casey Berry II, D.O./[facility] Electronically signed by:Moon Maloney M.D. Jul 27 2018 9:15AM TECHNICAL DESIGNER * Moon Maloney MD - 06/23/2018 12:00 AM CST UROLOGY CRISTIAN BLEDSOE : [birth year][id number] 06/23/2018 SUBJECTIVE: Cristian comes to see me [...] short-term ADT. He is not on any CAR SEAT UPHOLSTERER. His most recent PSA was 0.051 so [...] Moon K. Gemar, M.D./mdh-14 cc: Dr. Kofi Navarro-[facility] Electronically signed by:Moon Maloney M.D. Jun 24 2018 12:40PM TECHNICAL DESIGNER documented in this encounter Plan of Treatment Not on file documented as of this encounter Visit Diagnoses Not on filedocumented in this encounter Care Teams Practical Ministries Professor Relationship Specialty Start Date End Date Casey Berry II, DO PCP - General 11/22/06 08/17/19 Stephani Aleman MD PCP - General Family Medicine 08/18/19 09/16/20 Bianka Loera CNP [address] [place] [phone] PCP - General Nurse Practitioner Family 09/17/2001/10 Desiree Patrick MD [address] [place] [address] PCP - General Electrophysiology 02/23/22 03/09/22 Desiree Patrick MD [address] [place] [address] 08/09/17 Farrah Nicole APRN,LEAN SPECIALIST [address] [place] [address] 08/09/17 Bry Echevarria MD [facility] [place] [address] 08/09/17 Casey Berry II, DO 08/09/17 Shruti Vergara RN RN Registered Nurse 08/27/20 documented as of this encounter Additional Source Comments PLEASE NOTE: Replies to this message will not be received.[facility]
--- OUTSIDE RECORDS SUMMARY | 2024-03-16 16:19 | XMS_ITS | Clinical Summary ---
Author Organization [employer] Address [place], [place] [address] Care Team Providers Care Travel Information Center Supervisor Name Role Phone Marli Sauceda MD Primary [...] for labs/EKG February 2024 180 Capsule 11/30/2023 Discontinue d(Reorder (E-cancel not sent)) Active Problems Problem Noted Date Diagnosed Date Ascending aorta dilatation 04/24/2022 PAF (paroxysmal atrial fibrillation) 04/24/2022 Parkinson disease 04/24/2022 Encounters Date Type Department Care Team Description 03/09/2024 Orders Only [facility] Scanner 1 scan: (1-Ord) [facility], MULTIPLE LABS, 03/09/2024 03/09/2024 Orders Only [facility] Scanner 1 scan: (1-Ord) SINUS RHYTHM WITH MARKED SINUS ARRHYTHMIA, 03/09/2024 02/16/2024 1:00 PM CDT Ancillary Procedure [facility] [address] [place] [address] 02/16/2024 Travel 02/15/2024 Telephone [facility] [address] [facility] [address] [place] [address] Kiya Gomes RN Medication Management (Tikosyn/) 01/19/2024 Orders Only [facility] [address] [facility] [address] [place] [address] Fabio Goldstein MD <No scans attached> from [...] Description 04/13/2024 9:20 AM CDT Office Visit [facility] [address] [place] [address] Vic Galvan MD [address] [place] [address] Health Maintenance Due Date Last Done Comments Tdap 11/23/1955 Depression screening for age 12+ 1956 BMI (ht and wt on same day) for age 18+ 1962 Hepatitis C screening for ag e 18-79 1962 Tetanus booster 1964 Zoster (shingles) series for age 50+ (1 of 2) 1994 RSV vaccine for adults or (1 - 1-dose 60+ series) 2004 Pneumococcal series for age 65+ (1 of 1 - PCV) 2009 COVID-19 vaccine series (2022-24 season) 2024 05/07/2022, 11/04/2021, 04/29/2021, Additional history exists Influenza for age 65+ 03/12/2024 Procedures Procedure Name Priority Date/Time Associated Diagnosis Comments SCAN-ELECTROCARDIOG THEA EKG 03/09/2024 12:00 AM CDT SCAN-LABORATORY REPORT 03/09/2024 12:00 AM CDT ECHO TTE COMPLETE WO CONTRAST Routine 02/16/2024 1:41 PM CDT Atrial fibrillation, unspecified type (HC) from Last 3 Months Results * SCAN-LABORATORY REPORT (03/09/2024 12:00 AM CDT) Scanner OTHER * SCAN-ELECTROCARDIOGRAM EKG (03/09/2024 12:00 AM CDT) Scanner OTHER * ECHO TTE COMPLETE WO CONTRAST (02/16/2024 1:41 PM CDT) AORTIC VALVE MEAN PG 13 mmHg EJECTION FRACTION 59 % PEAK TR VELOCITY 2.1 m/s LVEDD 4.5 cm EJECTION FRACTION 60 - 65% Anatomical Region Laterality Modality Ultrasound 02/16/2024 1:17 PM CDT Narrative 02/16/2024 3:08 PM CDT ECHOCARDIOGRAM CRISTIAN BLEDSOE ? Accession#: ?? [id number] : ?1945 78 years Study Date: ?? 02/16/2024 1:17:37 PM Gender: M ?BP: ? 116/68 mmHg Height: 185.00 cm ?BSA: ?2.10 m? ? ? Weight: 86.00 kg ? Tech: ? MSR ? Referring MD: SHYANN GRIGGS Site: ? [facility] Reading Location: Mobile OP Patient Location: Outpatient. [...] . This study was interpreted by an [facility] accredited facility. CC: HIM (med records) [facility]. ??Final ?? Procedure Note Kofi Connolly MD - 02/16/2024 ECHOCARDIOGRAM CRISTIAN BLEDSOE : 1945 78 years Study Date: 02/16/2024 1:17:37 PM Gender: M BP: 116/68 mmHg Height: 185.00 cm BSA: 2.10 m? ? ? Weight: 86.00 kg Tech: MSR Referring MD: SHYANN GRIGGS Site: [facility] Reading Location: Mobile OP Patient [...] . This study was interpreted by an [facility] accredited facility. CC: HIM (med records) [facility]. Final Shyann Griggs MD ECHO ORD from Last 3 Months Care Teams Travel Information Center Supervisor Relationship Specialty Start Date End Date Marli Sauceda MD [address] [facility] [place] [address] PCP - General Family Practice 03/13/22
--- OUTSIDE RECORDS SUMMARY | 2024-03-16 16:20 | XMS_ITS | Encounter Summary ---
Author Organization [employer] Address [address] [place] [address] Care Team Providers Care Jacket Preparer Name Role Phone Jamal CARLISLE DO, Robert William Primary Care Provide r Unavailable Desiree Patrick MD Unavailable Farrah Nicole APRN,MARKETING UNDERWRITER Unavailable Bry Echevarria MD Unavailable Jamal CARLISLE DO, Robert William Unavailable Unav Stephani Diaz MD Primary Care Provider Shruti Vergara RN Unavailable Unavailable Bianka Loera CNP Primary Care Provider Desiree Patrick MD Primary Care P rovider Encounter Details Date Type Department Care Team (Late st Contact Info) Description 07/01/2017 Historical Conversion [facility] Family Medicine [address] [place] [address] Social History Tobacco Use Types Packs/Day Years [...] of this encounter Procedure Notes * [facility] - 06/14/2018 12:00 AM CSTAssociated Order(s): [...] by:Tiffani Carrero RN Jun 14 2018 7:43PM GAS ENGINE PERFORMANCE ENGINEER * [facility] MICHELLEPROVIDER - 05/17/2018 12:00 AM CSTAssociated Order(s): ANTICOAGULATION Anticoagulation Clinic [facility] Name: CRISTIAN BLEDSOE : 1945 [...] by:Tiffani Carrero RN May 17 2018 11:41AM GAS ENGINE PERFORMANCE ENGINEER * [facility] 04/26/2018 12:00 AM CDTAssociated Order(s): ANTICOAGULATION Anticoagulation Clinic [facility] Name: CRISTIAN BLEDSOE : 1945 [...] by:Tiffani Carrero RN Apr 26 2018 4:12PM GAS ENGINE PERFORMANCE ENGINEER * [facility] - 03/22/2018 12:00 AM CDTAssociated Order(s): ANTICOAGULATION Anticoagulation [facility] Name: CRISTIAN BLEDSOE : 1945 [...] by:Tiffani Carrero RN Mar 22 2018 3:06PM GAS ENGINE PERFORMANCE ENGINEER * [facility] - 02/23/2018 12:00 AM CDTAssociated Order(s): ANTICOAGULATION Anticoagulation [facility] Name: CRISTIAN BLEDSOE : 1945 DOS: [...] by:Tiffani Carrero RN Feb 23 2018 10:29AM GAS ENGINE PERFORMANCE ENGINEER * [facility] - 02/09/2018 12:00 AM CDTAssociated Order(s): ANTICOAGULATION Anticoagulation [facility] Name: CRISTIAN BLEDSOE : 1945 DOS: 02/09/2018 Cristian is a patient of Dr. Berry. He is here today for anticoagulation assessment and INR check for adiagnosis of atrial fibrillation. Patient states that he has been feeling well. He denies any medication changes since his last INR check. Patient reports that he recently took a trip to [place] and forgot to take his Coumadin during the weekend. INR tested today is 1.8 with the recommended range of 2.0 to 3.0. Patient will continue Coumadin at 7.5 mg on Wednesdays and 5 mg all other days withan INR recheck in two weeks. Patient verbalizes understanding. Electronically signed by:Tiffani Carrero RN Feb 09 2018 4:06PM GAS ENGINE PERFORMANCE ENGINEER * [facility] - 07/01/2017 12:00 AM CSTAssociated Order(s): ANTICOAGULATION Name: CRISTIAN BLEDSOE : 1945 DOS: 07/01/2017 Cristian is a patient of Dr. Berry. He is here today for anticoagulation assessment and INR check for adiagnosis of atrial fibrillation. Patient was seen in clinic by Dr. Echevarria today post cardioversion. Patient had a cardioversion on 06/24 at [facility] and he reports it went well. [...] by:Theresa Crowder RN Jul 01 2017 5:02PM GAS ENGINE PERFORMANCE ENGINEER documented in this encounter Plan of Treatment Not on file documented as of this encounter Procedures Procedure Name Priority Date/Time Associated Diagnosis Comments ANTICOAGULATION 06/14/2018 ANTICOAGULATION 05/17/2018 ANTICOAGULATION 04/26/2018 ANTICOAGULATION 03/22/2018 ANTICOAGULATION 02/23/2018 ANTICOAGULATION 02/09/2018 ANTICOAGULATION 07/01/2017 documented in this encounter Results * ANTICOAGULATION (06/14/2018) Narrative Procedure Note [facility] MICHELLEPROVIBRANDO - 06/14/2018 12:00 AM CST Name: [...] by:Tiffani Carrero RN Jun 14 2018 7:43PM GAS ENGINE PERFORMANCE ENGINEER [facility] OTHER * ANTICOAGULATION (05/17/2018) Narrative Procedure Note [facility] - 05/17/2018 12:00 AM CST Anticoagulation [facility] Name: CRISTIAN BLEDSOE : 1945 DOS: [...] by:Tiffani Carrero RN May 17 2018 11:41AM GAS ENGINE PERFORMANCE ENGINEER [facility] OTHER * ANTICOAGULATION (04/26/2018) Narrative Procedure Note [facility] - 04/26/2018 12:00 AM CDT Anticoagulation [facility] Name: CRISTIAN BLEDSOE : 1945 DOS: [...] by:Tiffani Carrero RN Apr 26 2018 4:12PM GAS ENGINE PERFORMANCE ENGINEER [facility] OTHER * ANTICOAGULATION (03/22/2018) Narrative Procedure Note [facility] - 03/22/2018 12:00 AM CDT Anticoagulation [facility] Name: CRISTIAN BLEDSOE : 1945 DOS: [...] by:Tiffani Carrero RN Mar 22 2018 3:06PM GAS ENGINE PERFORMANCE ENGINEER [facility] OTHER * ANTICOAGULATION (02/23/2018) Narrative Procedure Note [facility] - 02/23/2018 12:00 AM CDT Anticoagulation [facility] Name: CRISTIAN BLEDSOE : 1945 DOS: [...] by:Tiffani Carrero RN Feb 23 2018 10:29AM GAS ENGINE PERFORMANCE ENGINEER [facility] OTHER * ANTICOAGULATION (02/09/2018) Narrative Procedure Note [facility] - 02/09/2018 12:00 AM CDT Anticoagulation Clinic [facility] Name: CRISTIAN BLEDSOE : 1945 [...] by:Tiffani Carrero RN Feb 09 2018 4:06PM GAS ENGINE PERFORMANCE ENGINEER [facility] OTHER * ANTICOAGULATION (07/01/2017) Narrative Procedure Note [facility] - 07/01/2017 12:00 AM CST Name: CRISTIAN BLEDSOE : 1945 DOS: 07/01/2017 Cristian is a patient of Dr. Berry. He is here today for anticoagulationassessment and INR check for a diagnosis of atrial fibrillation. Patientwas seen in clinic by Dr. Echevarria today post cardioversion. Patient had acardioversion on 06/24 at [facility] and he reports it went well. [...] by:Theresa Crowder RN Jul 01 2017 5:02PM GAS ENGINE PERFORMANCE ENGINEER Genericprovider [facility] OTHER documented in this encounter Visit Diagnoses Not on filedocumented in this encounter Care Teams Jacket Preparer Relationship Specialty Start Date End Date Casey Berry II, DO PCP - General 11/22/06 08/17/19 Stephani Aleman MD PCP - General Family Medicine 08/18/19 09/16/20 Bianka Loera GLOBAL COMPENSATION MANAGER [address] [facility] [address] [place] [address] PCP - General Nurse Practitioner Family 09/17/2001/10 Desiree Patrick MD [address] [place] [address] PCP - General Electrophysiology 02/23/22 03/09/22 [place] [address] [place] [address] 08/09/17 Farrah Nicole APRN,ALEX [address] [place] [address] 08/09/17 Bry Echevarria MD [address] [place] [address] 08/09/17 Casey Berry II, DO 08/09/17 Shruti Vergara RN RN Registered Nurse 08/27/20 documented as of this encounter Additional Source Comments PLEASE NOTE: Replies to this message will not be received.[facility]
--- OUTSIDE RECORDS SUMMARY | 2024-03-16 16:20 | XMS_ITS | Encounter Summary ---
Author Organization [employer] Address [address] [place] [address] Care Team Providers Care Mammalogy Teacher Name Role Phone Jamal CARLISLE DO, Robert William Primary Care Provide r Unavailable Desiree Patrick MD Unavailable Farrah Nicole APRN,TOBACCO WEIGHER Unavailable Bry Echevarria MD Unavailable Jamal CARLISLE DO, Robert William Unavailable Unav Stephani Diaz MD Primary Care Provider Shruti Vergara RN Unavailable Unavailable Bianka Loera CNP Primary Care Provider [phone] Desiree Patrick MD Primary Care P rovider Encounter Details Date Type Department Care Team (Late st Contact Info) Description 06/13/2018 Historical Conversion [facility] [address] [facility] [address] Bry Echevarria MD [address] [place] [address] Social History Tobacco Use Types [...] AM CST CRISTIAN BLEDSOE : 1945 HX: [id number] DOS: 06/13/2018 SUBJECTIVE: Patient is a 72-year-old [...] Jose Winslow in Radiation Oncology at the [facility]. He has not recently had [...] Prostate cancer, status post treatment with radiation. Irma to be under good control at this [...] later. Bry Echevarria M.D./ekg-6 cc: Yury Berry DO/[facility] Radha cc: Elder Maloney MD/[facility] Radha cc: Mare Rubi PA-C/[facility] Radha cc: Jose Winslow MD/[facility] Electronically signed by:Bry Echevarria M.D. Jun 16 2018 2:16PM SIZE CHANGER documented in this encounter Plan of Treatment Not on file documented as of this encounter Visit Diagnoses Not on filedocumented in this encounter Care Teams Mammalogy Teacher Relationship Specialty Start Date End Date Casey Berry II, DO PCP - General 11/22/06 08/17/19 Stephani Aleman MD PCP - General Family Medicine 08/18/19 09/16/20 Bianka Loera SHRIMP POND LABORER [address] [place] [phone] PCP - General Nurse Practitioner Family 09/17/2001/10 Desiree Patrick MD [address] [place] [address] PCP - General Electrophysiology 02/23/22 03/09/22 Desiree Patrick MD [address] [place] [address] 08/09/17 Farrah Nicole, PRODUCT INSPECTION COORDINATOR,TOBACCO WEIGHER [address] [place] [address] 08/09/17 Bry Echevarria MD [address] [place] [place] [address] 08/09/17 Casey Berry II, DO 08/09/17 Shruti Vergara RN RN Registered Nurse 08/27/20 documented as of this encounter Additional Source Comments PLEASE NOTE: Replies to this message will not be received.[facility]
--- OUTSIDE RECORDS SUMMARY | 2024-03-16 16:20 | XMS_ITS | Encounter Summary ---
Author Organization [employer] Address [address] [place] [address] Care Team Providers Care Power Distribution Engineer Name Role Phone Jamal CARLISLE DO, Robert William Primary Care Provide r Unavailable Desiree Patrick MD Unavailable Farrah Nicole APRN,WASTEWATER TREATMENT PLANT ATTENDANT Unavailable Bry Echevarria MD Unavailable Jamal CARLISLE DO, Robert William Unavailable Unav Stephani Diaz MD Primary Care Provider [phone] Shruti Vergara RN Unavailable Unavailable Bianka Loera CNP Primary Care Provider [phone] Desiree Patrick MD Primary Care P rovider Encounter Details Date Type Department Care Team (Late st Contact Info) Description 09/07/2017 Historical Conversion [facility] Family Medicine [address] [place] [address] Casey Berry II, DO Social History Tobacco [...] Bilateral leg pain History of Present Illness Mptdjok-ung-esod-old male who states that he was shoveling [...] TAKE 1 CAPSULE EVERY 12 HOURS; Last Rx:[id number] Ordered 2. Lisinopril 10 MG Oral Tablet; TAKE ONE TABLET DAILY; Therapy: 18Oct2017 to Recorded 3. Metoclopramide HCl - 5 MG Oral Tablet; TAKE 1 TABLET BY MOUTH THREE TIMES DAILY WITH MEALS NEEDED; Therapy: 10Sep2014 to (Evaluate:29Oct2017) Requested for: 60Aws0362; Last Rx:[id number] Ordered 4. Polyethylene Glycol 3350 Oral Powder; take 17 grams in 8 ounces of fluid once daily as needed for constipation; Therapy: 64Dhc5399 to (Evaluate:27May2018); Last Rx:[id number] Ordered 5. Triamcinolone Acetonide 0.1 % External Lotion; APPLY 2-3 TIMES DAILY TO AFFECTED AREA(S); Therapy: 88Fag0478 to (Last Rx:34Htg5559) Requested for: 11Qsf1447 Ordered 6. Warfarin Sodium 5 MG Oral Tablet; Take as directed by ACC; Therapy: 72Vjg1824 to (Evaluate:10Sep2018) Requested for: 15Sep2017 Recorded Allergies [...] Casey Berry DO; Oct 25 2017 10:02AM RN FAMILY PRACTICE documented in this encounter H&P Notes * [...] healthy by no longer smoking.; Status:Complete; Done: 56Hoq9822 Reason For Visit Routine history and physical. [...] DAILY; Therapy: 14Apr2017 to (Evaluate:27May2018) Requested for: 10Qzr3395; Last Rx:[id number] Ordered 3. Dofetilide 250 MCG Oral Capsule; TAKE 1 CAPSULE EVERY 12 HOURS; Last Rx:64Pmd8467 Ordered 4. Metoclopramide HCl - 5 MG Oral Tablet; TAKE 1 TABLET BY MOUTH THREE TIMES DAILY WITH MEALS NEEDED; Therapy: 10Sep2014 to (Evaluate:29Oct2017) Requested for: 87Vep9404; Last Rx:[id number] Ordered 5. Metoprolol Tartrate 50 MG Oral Tablet; TAKE 1/2 TABLET TWICE DAILY; Therapy: (Recorded:32Itu6455) to Recorded 6. Polyethylene Glycol 3350 Oral Powder; take 17 grams in 8 ounces of fluid once daily as needed for constipation; Therapy: 01Jul2017 to (Evaluate:27May2018); Last Rx:[id number] Ordered 7. Warfarin Sodium 5 MG Oral Tablet; Take as directed by ACC; Therapy: 55Qdl2525 to (Evaluate:28May2018) Requested for: 02Jun2017 Recorded Allergies 1. Penicillins 2. Sulfa Drugs PENICILLIN AND SULFA. Immunizations Prevnar in 2016. Pneumovax in 2009. Tetanus in 2013. Shingles in 2009. Vitals Recorded: 99Bsh4165 08:20AM Systolic 144 Diastolic 85 Heart Rate [...] Casey Berry DO; Sep 20 2017 7:51AM RN FAMILY PRACTICE documented in this encounter Plan of Treatment Not on file documented as of this encounter Visit Diagnoses Not on filedocumented in this encounter Care Teams Power Distribution Engineer Relationship Specialty Start Date End Date Casey Berry II, DO PCP - General 11/22/06 08/17/19 Stephani Aleman MD PCP - General Family Medicine 08/18/19 09/16/20 Bianka Loera CNP [address] [place] [address] [address] [place] [phone] PCP - General Nurse Practitioner Family 09/17/2001/10 [place] [address] [place] [phone] PCP - General Electrophysiology 02/23/22 03/09/22 Desiree Patrick MD [address] [place] [address] 08/09/17 Farrah Nicole APRN,WASTEWATER TREATMENT PLANT ATTENDANT [address] [place] [address] 08/09/17 Bry Echevarria MD [address] [place] [address] 08/09/17 Casey Berry II, DO 08/09/17 Shruti Vergara RN RN Registered Nurse 08/27/20 documented as of this encounter Additional Source Comments PLEASE NOTE: Replies to this message will not be received.[facility] and [facility]
--- OUTSIDE RECORDS SUMMARY | 2024-03-16 16:20 | XMS_ITS | Encounter Summary ---
Author Organization [employer] Address [address] [place] [address] Care Team Providers Care Cyberathlete Name Role Phone Jamal CARLISLE DO, Robert William Primary Care Provide r Unavailable Desiree Patrick MD Unavailable Farrah Nicole APRN,INSULATION ENGINEMAN Unavailable Bry Echevarria MD Unavailable Jamal CARLISLE DO, Robert William Unavailable Unav Stephani Diaz MD Primary Care Provider Shruti Vergara RN Unavailable Unavailable Bianka Loera CNP Primary Care Provider Desiree Patrick MD Primary Care P rovider Encounter Details Date Type Department Care Team (Late st Contact Info) Description 08/31/2017 Historical Conversion [facility] Family Medicine [address] [facility] [place] [address] Desiree Rubi PAC [address] [place] [address] Social History Tobacco Use Types [...] Comments Blood Pressure 112/60 08/31/2017 12:00 AM SR. MANAGER CORPORATE COMMUNICATIONS Pulse - - Temperature - - Respiratory Rate - - Oxygen Saturation - - Inhaled Oxygen Concentration - - Weight 95.9 kg (211 lb 6.7 oz) 08/31/2017 12:00 AM SR. MANAGER CORPORATE COMMUNICATIONS Height - - Body Mass Index 27.89 07/27/2017 2:42 PM SR. MANAGER CORPORATE COMMUNICATIONS documented in this encounter Functional Status Functional [...] on filedocumented in this encounter Care Teams Cyberathlete Relationship Specialty Start Date End Date Casey Berry II, DO PCP - General 11/22/06 08/17/19 Stephani Aleman MD PCP - General Family Medicine 08/18/19 09/16/20 Bianka Loera CNP [address] [place] [address] 2 [place] [address] PCP - General Nurse Practitioner Family 09/17/20 712/31 Desiree Patrick MD [address] [place] [address] PCP - General Electrophysiology 02/23/22 03/09/22 Desiree Patrick MD [address] [place] [address] 08/09/17 Farrah Nicole APRN,INSULATION ENGINEMAN [address] [facility] [address] 08/09/17 Bry Echevarria MD [address] [place] [address] [place] [address] 08/09/17 Casey Berry II, DO 08/09/17 Shruti Vergara RN RN Registered Nurse 08/27/20 documented as of this encounter Additional Source Comments PLEASE NOTE: Replies to this message will not be received.[facility]
--- OUTSIDE RECORDS SUMMARY | 2024-03-16 16:20 | XMS_ITS | Encounter Summary ---
Author Organization [employer] Address [address] [place] [address] Care Team Providers Care Horse Breaker Name Role Phone Jamal CARLISLE DO, Robert William Primary Care Provide r Unavailable Desiree Patrick MD Unavailable Farrah Nicole APRN,GENERAL FARMWORKER Unavailable [phone] Byr Echevarria MD Unavailable [phone] Jamal CARLISLE DO, Robert William Unavailable Unav Stephani Diaz MD Primary Care Provider Shruti Vergara RN Unavailable Unavailable Bianka Loera CNP Primary Care Provider Desiree Patrick MD Primary Care P rovider Encounter Details Date Type Department Care Team (Late st Contact Info) Description 06/13/2018 Historical Conversion [facility] [address] [facility] [place] [address] Bry Echevarria MD [address] [place] [address] Social History Tobacco Use Types [...] Comments Blood Pressure 120/78 06/13/2018 12:00 AM CASTING CHIPPER Pulse - - Temperature - - Respiratory Rate - - Oxygen Saturation - - Inhaled Oxygen Concentration - - Weight 93.8 kg (206 lb 12.7 oz) 018 12:00 AM CASTING CHIPPER Height - - Body Mass Index 27.29 05/18/2018 8:54 AM CASTING CHIPPER documented in this encounter Functional Status Functional [...] on filedocumented in this encounter Care Teams Horse Breaker Relationship Specialty Start Date End Date Casey Berry II, DO PCP - General 11/22/06 08/17/19 Stephani Aleman MD PCP - General Family Medicine 08/18/19 09/16/20 Bianka Loera CNP [address] [place] [address] [address] [place] [address] PCP - General Nurse Practitioner Family 09/17/2001/10 Desiree Patrick MD [address] [place] [id number] PCP - General Electrophysiology 02/23/22 03/09/22 Desiree Patrick MD [address] [place] [address] 08/09/17 Farrah Nicole APRN,GENERAL FARMWORKER [address] [place] [address] 08/09/17 Bry Echevarria MD [address] [place] [address] 08/09/17 Casey Berry II, DO 08/09/17 Srhuti Vergara RN RN Registered Nurse 08/27/20 documented as of this encounter Additional Source Comments PLEASE NOTE: Replies to this message will not be received.[facility]
--- OUTSIDE RECORDS SUMMARY | 2024-03-16 16:20 | XMS_ITS | Encounter Summary ---
Author Organization [employer] Address [address] [place] [address] Care Team Providers Care Machining Supervisor Name Role Phone Jamal CARLISLE DO, Robert William Primary Care Provide r Unavailable Desiree Patrick MD Unavailable Farrah Nicole APRN,DISINTEGRATOR Unavailable Bry Echevarria MD Unavailable [phone] Jamal CARLISLE DO, Robert William Unavailable Unav Stephani Diaz MD Primary Care Provider Shruti Vergara RN Unavailable Unavailable Bianka Loera CNP Primary Care Provider [phone] Desiree Patrick MD Primary Care P rovider Encounter Details Date Type Department Care Team (Late st Contact Info) Description 02/03/2017 Historical Conversion [facility] Family Medicine [address] [place] [id number] Social History Tobacco Use Types Packs/Day Years [...] as of this encounter Procedure Notes * [facility] 01/05/2018 12:00 AM CDTAssociated Order(s): ANTICOAGULATION [facility] Name: CRISTIAN BLEDSOE : 1945 [...] Carrero RN Jan 05 2018 12:21PM MANAGER VOICE * [facility] 12/21/2017 12:00 AM CDTAssociated Order(s): ANTICOAGULATION [facility] Name: CRISTIAN BLEDSOE : 1945 [...] Carrero RN Dec 21 2017 8:31AM MANAGER VOICE * [facility], GENERICPROVIDER - 11/24/2017 12:00 AM CDTAssociated Order(s): ANTICOAGULATION Anticoagulation [facility] Name: CRISTIAN BLEDSOE : 1945 DOS: [...] Carrero RN Nov 24 2017 2:41PM MANAGER VOICE * [facility], [facility] - 10/27/2017 12:00 AM CDTAssociated Order(s): ANTICOAGULATION Anticoagulation [facility] Name: CRISTIAN BLEDSOE : 1945 DOS: 10/27/2017 Cristian is a patient of Dr. Berry. He is here today for anticoagulation assessment and INR check for adiagnosis of atrial fibrillation. Patient states that he has not been feeling well and has been suffering with spinal stenosis. He reports that he has been taking soma for a muscle relaxer. He also reports that his boatswain's mate has changed his medications. Patient stales that he is no longer takingany rate control medications. INR tested today is therapeutic at 2.0 with the recommended range of 2.0 to 3.0. He will continue Coumadin at 5 mg daily with an INR recheck in one month, sooner for anychanges. Patient verbalizes understanding. Electronically signed by:Tiffani Carrero RN Oct 28 2017 7:02AM MANAGER VOICE * [facility] - 09/29/2017 12:00 AM CDTAssociated Order(s): ANTICOAGULATION [facility] Name: CRISTIAN BLEDSOE : 1945 DOS: 09/29/2017 Cristian is a patient of Dr. Berry. He is here today for anticoagulation assessment and INR check for adiagnosis of atrial fibrillation. Patient states that he is feeling well. He denies any changes in medication. Patient reports that he continues to experience bradycardia and is working with his boatswain's mate to manage his beta blockers slowly. INR tested today is therapeutic at 2.1 with the recommended range of 2.0 to 3.0. He will continue Coumadin at 5 mg daily with an INR recheck in one month, sooner for any changes. Patient verbalizes understanding. Electronically signed by:Tiffani Carrero RN Sep 29 2017 2:09PM MANAGER VOICE * [facility], MICHELLEPROVIBRANDO - 09/15/2017 12:00 AM CSTAssociated Order(s): ANTICOAGULATION [facility] Name: CRISTIAN BLEDSOE : 1945 [...] that Dr. Berry will converse with his boatswain's mate to see if they should change some of his heart medications. Patient will call [facility] nurse with any updates. INR tested today is 1.9 with the recommended range of 2.0 to 3.0. He will adjust Coumadin to 5 mg daily with an INR recheck in two weeks. Patient verbalizes understanding. Electronically signed by:Tiffani Carrero RN Sep 15 2017 11:42AM MANAGER VOICE * [facility] - 08/18/2017 12:00 AM CSTAssociated Order(s): ANTICOAGULATION [facility] Name: CRISTIAN BLEDSOE : 1945 [...] Carrero RN Aug 18 2017 6:00PM MANAGER VOICE * [facility] - 07/09/2017 12:00 AM CSTAssociated Order(s): ANTICOAGULATION [facility] Name: CRISTIAN BLEDSOE : 1945 [...] Carrero RN Jul 09 2017 11:28AM MANAGER VOICE * [facility] - 06/16/2017 12:00 AM CSTAssociated Order(s): ANTICOAGULATION [facility] Name: CRISTIAN BLEDSOE : 1945 DOS: 06/16/2017 This is a patient of Dr. Berry. He is here today for an anticoagulation assessment and INR check fora diagnosis of atrial fibrillation. He states that he has been feeling well. Patient denies any recent medication changes. He reports that he needs weekly INR checks per Dr. Patrick at [facility] in preparation for taking dofetilide and [...] Carrero RN Jun 16 2017 4:18PM MANAGER VOICE * [facility] - 06/09/2017 12:00 AM CSTAssociated Order(s): ANTICOAGULATION [facility] Name: CRISTIAN BLEDSOE : 1945 DOS: 06/09/2017 This is a patient of Dr. Berry. He is here today for an anticoagulation assessment and INR check fora diagnosis of atrial fibrillation. He states that he has been feeling well. Patient denies any recent medication changes. He reports that he needs weekly INR checks per Dr. Patrick at [facility] in preparation for taking dofetilide and [...] Carrero RN Jun 09 2017 3:40PM MANAGER VOICE * [facility], GENERICPROVIDER - 06/02/2017 12:00 AM CSTAssociated Order(s): ANTICOAGULATION [facility] Name: CRISTIAN BLEDSOE : 1945 DOS: 06/02/2017 This is a patient of Dr. Berry. He is here today for an anticoagulation assessment and INR check fora diagnosis of atrial fibrillation. He states that he has been feeling well. Patient denies any recent medication changes. He reports that he will need weekly INR checks per Dr. Patrick at [facility] in preparation for taking dofetilide and [...] Carrero RN Jun 02 2017 9:39AM MANAGER VOICE AMENDMENTS: 1. current INR and Coumadin dosing. Electronically signed by:Tiffani Carrero RN Jun 09 2017 3:41PM MANAGER VOICE * [facility] - 05/26/2017 12:00 AM CSTAssociated Order(s): ANTICOAGULATION [facility] Name: CRISTIAN BLEDSOE : 1945 DOS: 05/26/2017 This is a patient of Dr. Berry. He is here today for an anticoagulation assessment and INR check fora diagnosis of atrial fibrillation. He states that he has been feeling well. Patient denies any recent medication changes. He reports that he will need weekly INR checks per Dr. Patrick at [facility] in preparation for taking dofetilide and [...] Carrero RN May 26 2017 9:42AM MANAGER VOICE * [facility] - 05/19/2017 12:00 AM CSTAssociated Order(s): ANTICOAGULATION [facility] Name: CRISTIAN BLEDSOE : 1945 DOS: 05/19/2017 This is a patient of Dr. Berry. He is here today for an anticoagulation assessment and INR check fora diagnosis of atrial fibrillation. He states that he has been feeling well. Patient denies any recent medication changes. He reports that he will need weekly INR checks per Dr. Patrick at [facility] in preparation for taking dofetilide and [...] Carrero RN May 19 2017 3:13PM MANAGER VOICE * [facility], GENERICPROVIDER - 05/14/2017 12:00 AM CDTAssociated Order(s): ANTICOAGULATION Email communication received from patient today: ALLAN Vera, RN [facility] (direct phone) [phone] Per our phone conversation of yesterday afternoon, I will be having an initiation of Tikosyn (Dofetilide) at [facility] beginning on June 21. To prepare for this, my boatswain's mate,Dr. Desiree Patrick, has requested INR lab reports demonstrating 4 to 5 weeks of INR levels between 2.5 and 3 prior to the initiation of Tikosyn. Would you please fax my INR lab reports for the month of May to Tamika, Dr. Patrick???s nurse, at (fax) [phone]? The phone number for Dr. Patrick is [phone]. As we discussed, I will come in for INR testing each Wednesday morning at 9:30 AM to meet this requirement. Thank you, Anurag Bledsoe Electronically signed by:Tiffani Carrero RN May 14 2017 9:46AM MANAGER VOICE * [facility] - 05/10/2017 12:00 AM CDTAssociated Order(s): ANTICOAGULATION [facility] Name: CRISTIAN BLEDSOE : 1945 DOS: 05/10/2017 This is a patient of Dr. Berry. He is here today for an anticoagulation assessment and INR check fora diagnosis of atrial fibrillation. He states that he has been feeling well. Patient denies any recent medication changes. He reports that he will need weekly INR checks per Dr. Patrick at [facility] in preparation for taking dofetilide and [...] Carrero RN May 10 2017 3:11PM MANAGER VOICE * [facility] - 04/06/2017 12:00 AM CDTAssociated Order(s): ANTICOAGULATION [facility] Name: CRISTIAN BLEDSOE : 1945 [...] Carrero RN Apr 06 2017 12:37PM MANAGER VOICE * [facility] - 03/03/2017 12:00 AM CDTAssociated Order(s): ANTICOAGULATION [facility] Name: CRISTIAN BLEDSOE : 1945 [...] He will have INR checked in the [place] lab prior to his appointment with Dr. Maloney. Patient verbalized understanding. Electronically signed by:Tiffani Carrero RN Mar 03 2017 12:02PM MANAGER VOICE * [facility] - 02/03/2017 12:00 AM CDTAssociated Order(s): ANTICOAGULATION [facility] Name: CRISTIAN BLEDSOE : 1945 [...] Carrero RN Feb 03 2017 10:11AM MANAGER VOICE documented in this encounter Plan of Treatment [...] Results * ANTICOAGULATION (01/05/2018) Narrative Procedure Note [facility], GENERICPROVIDER - 01/05/2018 12:00 AM CDT Anticoagulation [facility] Name: CRISTIAN BLEDSOE : 1945 DOS: [...] Carrero RN Jan 05 2018 12:21PM MANAGER VOICE [facility] OTHER * ANTICOAGULATION (12/21/2017) Narrative Procedure Note [facility] - 12/21/2017 12:00 AM CDT Anticoagulation [facility] Name: CRISTIAN BLEDSOE : 1945 DOS: [...] Carrero RN Dec 21 2017 8:31AM MANAGER VOICE [facility] OTHER * ANTICOAGULATION (11/24/2017) Narrative Procedure Note [facility] - 11/24/2017 12:00 AM CDT Anticoagulation [facility] Name: CRISTIAN BLEDSOE : 1945 DOS: [...] Carrero RN Nov 24 2017 2:41PM MANAGER VOICE [facility] OTHER * ANTICOAGULATION (10/27/2017) Narrative Procedure Note [facility] - 10/27/2017 12:00 AM CDT Anticoagulation [facility] Name: CRISTIAN BLEDSOE : 1945 DOS: 10/27/2017 Cristian is a patient of Dr. Berry. He is here today for anticoagulationassessment and INR check for a diagnosis of atrial fibrillation. Patientstates that he has not been feeling well and has been suffering withspinal stenosis. He reports that he has been taking soma for a musclerelaxer. He also reports that his boatswain's mate has changed hismedications. Patient stales that he is no longer taking any rate controlmedications. INR tested today is therapeutic at 2.0 with the recommendedrange of 2.0 to 3.0. He will continue Coumadin at 5 mg daily with an INRrecheck in one month, sooner for any changes. Patient verbalizesunderstanding. Electronically signed by:Tiffani Carrero RN Oct 28 2017 7:02AM MANAGER VOICE [facility] OTHER * ANTICOAGULATION (09/29/2017) Narrative Procedure Note [facility] - 09/29/2017 12:00 AM CDT Anticoagulation [facility] Name: CRISTIAN BLEDSOE : 1945 DOS: 09/29/2017 Cristian is a patient of Dr. Berry. He is here today for anticoagulationassessment and INR check for a diagnosis of atrial fibrillation. Patientstates that he is feeling well. He denies any changes in medication.Patient reports that he continues to experience bradycardia and is workingwith his boatswain's mate to manage his beta blockers slowly. INR testedtoday is therapeutic at 2.1 with the recommended range of 2.0 to 3.0. Hewill continue Coumadin at 5 mg daily with an INR recheck in one month,sooner for any changes. Patient verbalizes understanding. Electronically signed by:Tiffani Carrero RN Sep 29 2017 2:09PM MANAGER VOICE [facility] OTHER * ANTICOAGULATION (09/15/2017) Narrative Procedure Note [facility] - 09/15/2017 12:00 AM CST [facility] Name: CRISTIAN BLEDSOE : 1945 [...] statesthat Dr. Berry will converse with his boatswain's mate to see if they shouldchange some of his heart medications. Patient will call [facility] nurse with anyupdates. INR tested today is 1.9 with the recommended range of 2.0 to 3.0.He will adjust Coumadin to 5 mg daily with an INR recheck in two weeks.Patient verbalizes understanding. Electronically signed by:Tiffani Carrero RN Sep 15 2017 11:42AM MANAGER VOICE [facility] OTHER * ANTICOAGULATION (08/18/2017) Narrative Procedure Note [facility] - 08/18/2017 12:00 AM CST Anticoagulation [facility] Name: CRISTIAN BLEDSOE : 1945 DOS: [...] Carrero RN Aug 18 2017 6:00PM MANAGER VOICE [facility] OTHER * ANTICOAGULATION (07/09/2017) Narrative Procedure Note [facility] - 07/09/2017 12:00 AM CST Anticoagulation [facility] Name: CRISTIAN BLEDSOE : 1945 DOS: [...] Carrero RN Jul 09 2017 11:28AM MANAGER VOICE [facility] OTHER * ANTICOAGULATION (06/16/2017) Narrative Procedure Note [facility] - 06/16/2017 12:00 AM CST [facility] Name: CRISTIAN BLEDSOE : 1945 DOS: 06/16/2017 This is a patient of Dr. Berry. He is here today for an anticoagulationassessment and INR check for a diagnosis of atrial fibrillation. He statesthat he has been feeling well. Patient denies any recent medicationchanges. He reports that he needs weekly INR checks per Dr. Patrick [facility] in preparation for [...] Carrero RN Jun 16 2017 4:18PM MANAGER VOICE [facility] OTHER * ANTICOAGULATION (06/09/2017) Narrative Procedure Note [facility] - 06/09/2017 12:00 AM CST [facility] Name: CRISTIAN BLEDSOE : 1945 DOS: 06/09/2017 This is a patient of Dr. Berry. He is here today for an anticoagulationassessment and INR check for a diagnosis of atrial fibrillation. He statesthat he has been feeling well. Patient denies any recent medicationchanges. He reports that he needs weekly INR checks per Dr. Patrick [facility] in preparation for [...] Carrero RN Jun 09 2017 3:40PM MANAGER VOICE Genericprovider [facility] OTHER * ANTICOAGULATION (06/02/2017) Narrative Procedure Note [facility], [facility] - 06/02/2017 12:00 AM CST [facility]tico[facility] Name: CRISTIAN BLEDSOE : 1945 DOS: 06/02/2017 This is a patient of Dr. Berry. He is here today for an anticoagulationassessment and INR check for a diagnosis of atrial fibrillation. He statesthat he has been feeling well. Patient denies any recent medicationchanges. He reports that he will need weekly INR checks per Dr. Valencia [facility] in preparation for taking dofetilide and [...] Carrero RN Jun 02 2017 9:39AM MANAGER VOICE AMENDMENTS: 1. current INR and Coumadin dosing. Electronically signed by:Tiffani Carrero RN Jun 09 2017 3:41PM MANAGER VOICE [facility] * [facility]TICO[facility] (05/26/2017) Narrative Procedure Note [facility], MICHELLEPROVIDER - 05/26/2017 12:00 AM CST Anticoagulation [facility] Name: CRISTIAN BLEDSOE : 1945 DOS: 05/26/2017 This is a patient of Dr. Berry. He is here today for an anticoagulationassessment and INR check for a diagnosis of atrial fibrillation. He statesthat he has been feeling well. Patient denies any recent medicationchanges. He reports that he will need weekly INR checks per Dr. Valencia [facility] in preparation for taking dofetilide and [...] Carrero RN May 26 2017 9:42AM MANAGER VOICE [facility] * [facility] (05/19/2017) Narrative [facility] 05/19/2017 12:00 AM CST Anticoagulation [facility] Name: CRISTIAN BLEDSOE : 1945 DOS: 05/19/2017 This is a patient of Dr. Berry. He is here today for an anticoagulationassessment and INR check for a diagnosis of atrial fibrillation. He statesthat he has been feeling well. Patient denies any recent medicationchanges. He reports that he will need weekly INR checks per Dr. Valencia [facility] in preparation for taking dofetilide and [...] Carrero RN May 19 2017 3:13PM MANAGER VOICE Genericprovider [facility] OTHER * ANTICOAGULATION (05/14/2017) Narrative Procedure Note [facility], GENERICPROVIDER - 05/14/2017 12:00 AM CDT Email communication received from patient today: ALLAN Vera, RN [facility] (direct phone) [phone] Per our phone conversation of yesterday afternoon, I will be having aninitiation of Tikosyn (Dofetilide) at [facility] beginning June 21. To prepare for this, my boatswain's mate, Dr. Serra, has requested INR lab reports demonstrating 4 to 5 weeks ofINR levels between 2.5 and 3 prior to the initiation of Tikosyn. Would you please fax my INR lab reports for the month of May Oneil, Dr. Patrick? s nurse, at (fax) [phone]? The phone numberfor Dr. Patrick is [phone]. As we discussed, I will come in for INR testing each Wednesday morning at9:30 AM to meet this requirement. Thank you, Anurag Premapura Electronically signed by:Tiffani Carrero RN May 14 2017 9:46AM MANAGER VOICE [facility] OTHER * ANTICOAGULATION (05/10/2017) Narrative Procedure Note [facility] - 05/10/2017 12:00 AM CDT Anticoagulation [facility] Name: CRISTIAN BLEDSOE : 1945 DOS: 05/10/2017 This is a patient of Dr. Berry. He is here today for an anticoagulationassessment and INR check for a diagnosis of atrial fibrillation. He statesthat he has been feeling well. Patient denies any recent medicationchanges. He reports that he will need weekly INR checks per Dr. Valencia [facility] in preparation for taking dofetilide and [...] Carrero RN May 10 2017 3:11PM MANAGER VOICE [facility] OTHER * ANTICOAGULATION (04/06/2017) Narrative Procedure Note [facility] - 04/06/2017 12:00 AM CDT Anticoagulation [facility] Name: CRISTIAN BLEDSOE : 1945 DOS: [...] Carrero RN Apr 06 2017 12:37PM MANAGER VOICE [facility] OTHER * ANTICOAGULATION (03/03/2017) Narrative Procedure Note [facility] - 03/03/2017 12:00 AM CDT Anticoagulation [facility] Name: CRISTIAN BLEDSOE : 1945 DOS: [...] changes. He willhave INR checked in the [place] lab prior to his appointment with . Patient verbalized understanding. Electronically signed by:Tiffani Carrero RN Mar 03 2017 12:02PM MANAGER VOICE [facility] OTHER * ANTICOAGULATION (02/03/2017) Narrative Procedure Note [facility] - 02/03/2017 12:00 AM CDT Anticoagulation [facility] Name: CRISTIAN BLEDSOE : 1945 DOS: [...] Carrero RN Feb 03 2017 10:11AM MANAGER VOICE Genericprovider [facility] OTHER documented in this encounter Visit Diagnoses Not on filedocumented in this encounter Care Teams Machining Supervisor Relationship Specialty Start Date End Date Casey Berry II, DO PCP - General 11/22/06 08/17/19 Stephani Aleman MD PCP - General Family Medicine 08/18/19 09/16/20 Bianka Loera CNP [address] [place] [address] [address] [place] [address] PCP - General Nurse Practitioner Family 09/17/2001/10 Desiree Patrick MD [address] [place] [address] PCP - General Electrophysiology 02/23/22 03/09/22 Desiree Patrick MD [address] [place] [address] 08/09/17 Farrah Nicole APRN,DISINTEGRATOR [address] [id number] 08/09/17 Bry Echevarria MD [address] [place] [id number] 08/09/17 Casey Berry II, DO 08/09/17 Shruti Vergara RN RN Registered Nurse 08/27/20 documented as of this encounter Additional Source Comments PLEASE NOTE: Replies to this message will not be received.[facility]
--- OUTSIDE RECORDS SUMMARY | 2024-03-16 16:20 | XMS_ITS | Encounter Summary ---
Author Organization [employer] Address [address] [place] [address] Care Team Providers Care Brand Engineer Name Role Phone Jamal CARLISLE DO, Robert William Primary Care Provide r Unavailable Desiree Patrick MD Unavailable Farrah Nicole APRN,MOWER OPERATOR Unavailable Bry Echevarria MD Unavailable [phone] Jamal CARLISLE DO, Robert William Unavailable Unav Stephani Diaz MD Primary Care Provider [phone] Shruti Vergara RN Unavailable Unavailable Bianka Loera CNP Primary Care Provider Desiree Patrick MD Primary Care P rovider Encounter Details Date Type Department Care Team (Late st Contact Info) Description 07/01/2017 Historical Conversion [facility] [address] [facility] [place] [address] Bry Echevarria MD [address] [place] [address] Social History Tobacco Use Types [...] Comments Blood Pressure 136/70 07/01/2017 12:00 AM DOOR TO DOOR SELLING AGENT Pulse - - Temperature - - Respiratory Rate - - Oxygen Saturation - - Inhaled Oxygen Concentration - - Weight 97.6 kg (215 lb 2.7 oz) 07/01/2017 12:00 AM DOOR TO DOOR SELLING AGENT Height - - Body Mass Index 28.39 06/21/2017 2:27 PM DOOR TO DOOR SELLING AGENT documented in this encounter Functional Status Functional [...] on filedocumented in this encounter Care Teams Brand Engineer Relationship Specialty Start Date End Date Casey Berry II, DO PCP - General 11/22/06 08/17/19 Stephani Aleman MD PCP - General Family Medicine 08/18/19 09/16/20 Bianka Loera CNP [address] [facility] 2 [place] [address] PCP - General Nurse Practitioner Family 09/17/2001/10 Desiree Patrick MD [address] [place] [address] PCP - General Electrophysiology 02/23/22 03/09/22 Desiree Patrick MD [address] [place] [address] 08/09/17 Farrah Nicole APRN,MOWER OPERATOR [address] [place] [address] 08/09/17 Bry Echevarria MD [address] [place] [address] [place] [address] 08/09/17 Casey Berry II, DO 08/09/17 Shruti Vergara RN RN Registered Nurse 08/27/20 documented as of this encounter Additional Source Comments PLEASE NOTE: Replies to this message will not be received.[facility] and [facility]
--- OUTSIDE RECORDS SUMMARY | 2024-03-16 16:20 | XMS_ITS | Encounter Summary ---
Author Organization [employer] Address [address] [place] [address] Care Team Providers Care Nascar Pit Crew Person Name Role Phone Jamal CARLISLE DO, Robert William Primary Care Provide r Unavailable Desiree Patrick MD Unavailable Farrah Nicole APRN,DRY KILN BURNER Unavailable Bry Echevarria MD Unavailable Jamal CARLISLE DO, Robert William Unavailable Unav Stephani Diaz MD Primary Care Provider Shruti Vergara RN Unavailable Unavailable Bianka Loera CNP Primary Care Provider [phone] Desiree Patrick MD Primary Care P rovider Encounter Details Date Type Department Care Team (Late st Contact Info) Description 06/25/2017 Historical Conversion [facility] Family Medicine [address] [place] [address] Social History Tobacco Use Types Packs/Day Years [...] as of this encounter Progress Notes * [facility], GENERICPROVIDER - 06/25/2017 12:00 AM CST Medication Reconciliation Post Discharge Name: CRISTIAN BLEDSOE Date of Discharge: 06/24/2017 Current Meds 1. Digoxin 125 MCG Oral Tablet; Therapy: (Recorded:[id number]) to Recorded 2. DilTIAZem HCl - 60 MG Oral Tablet; TAKE 1 TABLET BY MOUTH DAILY; Therapy: 14Apr2017 to (Evaluate:[id number]) Requested for: [id number] Recorded 3. Dofetilide 250 MCG Oral Capsule; TAKE 1 CAPSULE TWICE DAILY; Therapy: (Recorded:[id number]) to Recorded 4. Metoclopramide HCl - 5 MG Oral Tablet (Reglan); TAKE 1 TABLET BY MOUTH THREE TIMES DAILY WITH MEALS; Therapy: 10Sep2014 to (Evaluate:17Sep2017) Requested for: 20May2017; Last Rx:20May2017 Ordered 5. Metoprolol Tartrate 50 MG Oral Tablet; TAKE 1 TABLET TWICE DAILY; Therapy: (Recorded:[id number]) to Recorded 6. Tylenol Extra Strength 500 MG Oral Tablet; Therapy: (Recorded:[id number]) to Recorded 7. Warfarin Sodium 5 MG Oral Tablet (Coumadin); Take as directed by [facility]; Therapy: 51Azx4912 to (Evaluate:28May2018) Requested for: 02Jun2017 Recorded Medication [...] INR checked next week. Reviewed 24 hour gizzard puller line, when to call PCP, and when to call 911. Patient voiced understanding. STACY Rasheed Follow-Up Recommendations Follow up with the following provider(s): cardiology 1 mo I reviewed with the patient the 24 hour nurse line and ecouraged them to call if they had any questions or concerns. Patient voiced understanding. Signatures Electronically signed by : Emma Estrella RN; Jun 25 2017 11:25AM IMPORT EXPORT COORDINATOR documented in this encounter Plan of Treatment Not on file documented as of this encounter Visit Diagnoses Not on filedocumented in this encounter Care Teams Nascar Pit Crew Person Relationship Specialty Start Date End Date Casey Berry II, DO PCP - General 11/22/06 08/17/19 Stephani Aleman MD PCP - General Family Medicine 08/18/19 09/16/20 Bianka Loera CNP [address] [facility] 2 [place] [address] PCP - General Nurse Practitioner Family 09/17/20 7/12/31 Desiree Patrick MD [address] [place] [facility] [address] PCP - General Electrophysiology 02/23/22 03/09/22 Desiree Patrick MD [address] [place] [facility] [address] 08/09/17 Farrah Nicole APRN,DRY KILN BURNER [address] [place] [facility] [address] 08/09/17 Bry Echevarria MD [facility] [place] [address] 08/09/17 Casey Berry II, DO 08/09/17 Shruti Vergara RN RN Registered Nurse 08/27/20 documented as of this encounter Additional Source Comments PLEASE NOTE: Replies to this message will not be received.[facility] and [facility]
--- OUTSIDE RECORDS SUMMARY | 2024-03-16 16:20 | XMS_ITS | Encounter Summary ---
Author Organization [employer] Address [address] [place] [address] Care Team Providers Care Mdm Developer Name Role Phone Jamal CARLISLE DO, Robert William Primary Care Provide r Unavailable Desiree Patrick MD Unavailable Farrah Nicole APRN,SENIOR COST ESTIMATOR Unavailable [phone] Bry Echevarria MD Unavailable Jamal CARLISLE DO, Robert William Unavailable Unav Stephani Diaz MD Primary Care Provider [phone] Shruti Vergara RN Unavailable Unavailable Bianka Loera CNP Primary Care Provider Desiree Patrick MD Primary Care P rovider Encounter Details Date Type Department Care Team (Late st Contact Info) Description 07/01/2017 Historical Conversion [facility] Family Medicine [address] [facility] [place] [address] Bry Echevarria MD [address] [place] [address] Social History Tobacco Use Types [...] ap pointment with the anticoagulation clinic in [facility] on July 09, 2017.Follow[facility] his [place] [facility]. The medicine list was reconciled. History of Present Illness Mr Carroll is a 71-year-old white male who comes to my on-call internal medicine clinic today forfollow-up of her recent hospitalization. His primary care physician is Dr. Berry. The patient was hospitalized in [place] last week and he underwent a cardioversion with the dofetilide. He is now onthat medication twice a day. His INR was slightly elevated at 3.2 when he was up in [place]. He was told to come in today for an INR check. He has not had any problems with bleeding. We did check his anticoagulation and his INR was therapeutic at 2.8. He will follow-up with the anticoagulation clinic in [facility] in 8 days and he [...] in atrial fibrillation.He is following up with [place] cardiology in 1 month. Allergies 1. Penicillins 2. Sulfa Drugs Vitals Vital Signs Recorded: [id number] 02:41PM Systolic 136, LUE, Sitting Diastolic 70, [...] questions appropriately. Results/Data Results, Free Text - [facility]: is therapeutic at 2.8. Signatures Electronically signed by : Bry Echevarria M.D.; Jul 01 2017 3:31PM NEW CAR SALESPERSON (Author) documented in this encounter Plan of Treatment Not on file documented as of this encounter Visit Diagnoses Not on filedocumented in this encounter Care Teams Mdm Developer Relationship Specialty Start Date End Date Casey Berry II, DO PCP - General 11/22/06 08/17/19 Stephani Aleman MD PCP - General Family Medicine 08/18/19 09/16/20 Bianka Loera, ASSISTANT PROFESSOR OF BUSINESS [address] [place] [phone] PCP - General Nurse Practitioner Family 09/17/20 712/31 Desiree Patrick MD [address] [place] [address] PCP - General Electrophysiology 02/23/22 03/09/22 Desiree Patrick MD [address] [place] [address] 08/09/17 Farrah Nicole, BOAT HOP,[facility] [address] [place] [address] 08/09/17 Bry Echevarria MD [address] [place] [address] [place] [id number] 08/09/17 Casey Berry II, DO 08/09/17 Shruti Vergara, RN RN Registered Nurse 08/27/20 documented as of this encounter Additional Source Comments PLEASE NOTE: Replies to this message will not be received.[facility] and [facility]
--- OUTSIDE RECORDS SUMMARY | 2024-03-16 16:20 | XMS_ITS | Encounter Summary ---
Author Organization [employer] Address [address] [place] [address] Care Team Providers Care Straight Line Edger Name Role Phone Jamal CARLISLE DO, Robert William Primary Care Provide r Unavailable Desiree Patrick MD Unavailable Farrah Nicole APRN,BAT CARRIER Unavailable rBy Echevarria MD Unavailable Jamal CARLISLE DO, Robert William Unavailable Unav Stephani Diaz MD Primary Care Provider Shruti Vergara RN Unavailable Unavailable Bianka Loera CNP Primary Care Provider Desiree Patrick MD Primary Care P rovider Encounter Details Date Type Department Care Team (Late st Contact Info) Description 06/13/2018 Historical Conversion [facility] Family Medicine [address] [place] [address] Social History Tobacco Use Types Packs/Day Years [...] as of this encounter Progress Notes * [facility], GENERICPROVIDER - 11/02/2018 12:00 AM CDT [...] week. Joan Everett PTA/Kassy Barone PT, [place] #[id number] Electronically signed by:Joan Everett PTA Nov 02 2018 2:00PM SUPERVISOR [employer] TECH[employer] Employee Relations Specialist/Recorder Electronically signed by:Trish Barone PT Nov 07 2018 4:43PM SUPERVISOR [employer] * [facility] - 10/26/2018 12:00 AM [...] by:Joan Everett PTA Oct 28 2018 7:51AM SUPERVISOR [employer]CH[employer] Employee Relations Specialist/Recorder Electronically signed by:Trish Barone PT Oct 31 2018 7:01PM SUPERVISOR [employer] * [facility] - 09/19/2018 12:00 AM CDT PHYSICAL THERAPY STUDENT NOTE BALANCE EVALUATION CRISTIAN BLEDSOE : 1945 HX: [id number] DOS: 09/19/2018 REFERRING PROVIDER: Casey Berry D.O. 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 He is currently [...] PATIENT RECEIVED: Patient received 30 minutes of uuvj-ky-abda evaluation with three or more comorbidities and three or more elements addressed. Clinical presentation is evolving and clinical complexity is moderate. Patient also received canalith repositioning maneuvers on this date. Lennox LEAHY/Trish Barone, PT #[id number] / lb-12 cc: Casey Berry D.O., [facility] Electronically signed by:Lennox Malagon Sep 20 2018 7:56PM SUPERVISOR [employer] Co-author Electronically signed by:Lennox Malagon Sep 27 2018 8:39AM SUPERVISOR [employer]CHNOLOGISTS Co-author Electronically signed by:Trish Barone PT Oct 02 2018 5:18PM SUPERVISOR [employer]BI[employer] TECHNOLOGISTS documented in this encounter Procedure Notes * [facility] - 10/26/2018 12:00 AM CDTAssociated Order(s): [...] by:Tiffani Carrero RN Oct 26 2018 4:16PM SUPERVISOR MI[employer]BIOLOG[employer] TECHNOLOGISTS * [facility] - 10/11/2018 12:00 AM CDTAssociated [...] by:Tiffani Carrero RN Oct 11 2018 3:39PM SUPERVISOR MI[employer]BIOLOG[employer] TECHNOLOGISTS * [facility] - 09/07/2018 12:00 AM CSTAssociated [...] by:Tiffani Carrero RN Sep 07 2018 3:31PM SUPERVISOR MI[employer]BIOLOG[employer] TECHNOLOGISTS * [facility] - 08/22/2018 12:00 AM CSTAssociated Order(s): ANTICOAGULATION Anticoagulation [facility] Name: CRISTIAN BLEDSOE : 1945 DOS: 08/22/2018 [...] by:Tiffani Carrero RN Aug 22 2018 2:48PM SUPERVISOR MICROBIOLOGY TECHNOLOGISTS * [facility], GENERICPROVIDER - 07/13/2018 12:00 AM CSTAssociated [...] by:Tiffani Carrero RN Jul 13 2018 2:41PM SUPERVISOR MICROBIOLOGY TECHNOLOGISTS * [facility], [facility] - 06/13/2018 12:00 AM CSTAssociated [...] Deborah Mandel RN; Jun 13 2018 12:37PM SUPERVISOR [employer]BIOLOG[employer] TECHNOLOGISTS documented in this encounter Plan of Treatment Not on file documented as of this encounter Procedures Procedure Name Priority Date/Time Associated Diagnosis Comments ANTICOAGULATION 10/26/2018 ANTICOAGULATION 10/11/2018 ANTICOAGULATION 09/07/2018 ANTICOAGULATION 08/22/2018 ANTICOAGULATION 07/13/2018 ANTICOAGULATION 06/13/2018 documented in this encounter Results * ANTICOAGULATION (10/26/2018) Narrative Procedure Note [facility], [facility] - 10/26/2018 12:00 AM CDT [...] by:Tiffani Carrero RN Oct 26 2018 4:16PM SUPERVISOR MICROBIOLOGY TECHNOLOGISTS [facility] OTHER * ANTICOAGULATION (10/11/2018) Narrative Procedure Note [facility], GENERICPROGNIADER - 10/11/2018 12:00 AM CDT [facility] [...] by:Tiffani Carrero RN Oct 11 2018 3:39PM SUPERVISOR MICROBIOLOGY TECHNOLOGISTS [facility] OTHER * ANTICOAGULATION (09/07/2018) Narrative Procedure Note [facility], [facility] - 09/07/2018 12:00 AM CST Anticoagulation [facility] Name: CRISTIAN BLEDSOE : 1945 DOS: [...] by:Tiffani Carrero RN Sep 07 2018 3:31PM SUPERVISOR MICROBIOLOGY TECHNOLOGISTS [facility] OTHER * ANTICOAGULATION (08/22/2018) Narrative Procedure Note [facility], [facility] - 08/22/2018 12:00 AM CST Anticoagulation [facility] Name: CRISTIAN BLEDSOE : 1945 DOS: 08/22/2018 [...] by:Tiffani Carrero RN Aug 22 2018 2:48PM SUPERVISOR MICROBIOLOGY TECHNOLOGISTS [facility] OTHER * ANTICOAGULATION (07/13/2018) Narrative Procedure Note [facility] - 07/13/2018 12:00 AM CST [facility] Name: CRISTIAN [...] by:Tiffani Carrero RN Jul 13 2018 2:41PM SUPERVISOR MICROBIOLOGY TECHNOLOGISTS [facility] OTHER * ANTICOAGULATION (06/13/2018) Narrative Procedure Note [facility] - 06/13/2018 12:00 AM CST ACC [...] Deborah Mandel RN; Jun 13 2018 12:37PM SUPERVISOR MICROBIOLOGY TECHNOLOGISTS Genericprovider [facility] OTHER documented in this encounter Visit Diagnoses Not on filedocumented in this encounter Care Teams Straight Line Edger Relationship Specialty Start Date End Date Casey Berry II, DO PCP - General 11/22/06 08/17/19 Stephani Aleman MD PCP - General Family Medicine 08/18/19 09/16/20 Bianka Loera CNP [address] [place] [phone] PCP - General Nurse Practitioner Family 09/17/2001/10 Desiree Patrick MD [address] [place] [address] PCP - General Electrophysiology 02/23/22 03/09/22 Desiree Patrick MD [address] [place] [address] 08/09/17 Farrah Niocle APRN,BAT CARRIER [address] [place] [address] 08/09/17 Bry Echevarria MD [facility] [place] [address] 08/09/17 Casey Berry II DO 08/09/17 Shruti Vergara, RN RN Registered Nurse 08/27/20 documented as of this encounter Additional Source Comments PLEASE NOTE: Replies to this message will not be received.[facility] and [facility]
--- OUTSIDE RECORDS SUMMARY | 2024-03-16 16:20 | XMS_ITS | Encounter Summary ---
Author Organization [employer] Address [address] [place] [address] Care Team Providers Care Health Sciences Program Coordinator Name Role Phone Jamal CARLISLE DO, Robert William Primary Care Provide r Unavailable Desiree Patrick MD Unavailable Farrah Nicole APRN,DRAFTER STRUCTURAL Unavailable Bry Echevarria MD Unavailable Jamal CARLISLE DO, Robert William Unavailable Unav Stephani Diaz MD Primary Care Provider Shruti Vergara RN Unavailable Unavailable Bianka Loera CNP Primary Care Provider [phone] Desiree Patrick MD Primary Care P rovider Encounter Details Date Type Department Care Team (Late st Contact Info) Description 09/07/2017 Historical Conversion [facility] Family Medicine [address] [place] [address] Casey Berry II, DO Social History Tobacco [...] Comments Blood Pressure 144/85 09/07/2017 12:00 AM FAN MAIL CLERK Pulse - - Temperature - - Respiratory Rate - - Oxygen Saturation - - Inhaled Oxygen Concentration - - Weight 94.3 kg (207 lb 14.3 oz) 018 12:00 AM FAN MAIL CLERK Height 185.5 cm (6' 1.03) 09/07/2017 1 2:00 AM FAN MAIL CLERK Body Mass Index 27.4 09/07/2017 12:00 AM FAN MAIL CLERK documented in this encounter Functional Status [...] on filedocumented in this encounter Care Teams Health Sciences Program Coordinator Relationship Specialty Start Date End Date Casey Berry II, DO PCP - General 11/22/06 08/17/19 Stephani Aleman MD PCP - General Family Medicine 08/18/19 09/16/20 Bianka Loera CNP [address] [facility] [address] [place] [address] PCP - General Nurse Practitioner Family 09/17/2001/10 [place] [address] [place] [address] PCP - General Electrophysiology 02/23/22 03/09/22 Desiree Patrick MD [address] [place] [address] 08/09/17 Farrah Nicole APRN,DRAFTER STRUCTURAL [address] [place] [address] 08/09/17 Bry Echevarria MD [address] [place] [address] [place] [address] 08/09/17 Casey Berry II, DO 08/09/17 Shruti Vergara RN RN Registered Nurse 08/27/20 documented as of this encounter Additional Source Comments PLEASE NOTE: Replies to this message will not be received.[facility] and [facility]
--- OUTSIDE RECORDS SUMMARY | 2024-03-16 16:20 | XMS_ITS | Encounter Summary ---
Author Organization [employer] Address [address] [place] [address] Care Team Providers Care Sole Stainer Name Role Phone Jamal CARLISLE DO, Robert William Primary Care Provide r Unavailable Desiree Patrick MD Unavailable Farrah Nicole APRN,CEO AND CO FOUNDER Unavailable Bry Echevarria MD Unavailable Jamal CARLISLE DO, Robert William Unavailable Unav Stephani Diaz MD Primary Care Provider Shruti Vergara RN Unavailable Unavailable Bianka Loera CNP Primary Care Provider [phone] Desiree Patrick MD Primary Care P rovider Encounter Details Date Type Department Care Team (Late st Contact Info) Description 10/18/2017 Historical Conversion [facility] Family Medicine [address] [place] [address] Casey Berry II, DO Social History Tobacco [...] Body Mass Index 27.09 09/07/2017 12:00 AM LOBSTER CATCHER documented in this encounter Functional Status Functional [...] on filedocumented in this encounter Care Teams Sole Stainer Relationship Specialty Start Date End Date Casey Berry II, DO PCP - General 11/22/06 08/17/19 Stephani Aleman MD PCP - General Family Medicine 08/18/19 09/16/20 Bianka Lorea CNP [address] [facility] 2 [place] [phone] PCP - General Nurse Practitioner Family 09/17/2001/10 [place] [address] [place] [address] PCP - General Electrophysiology 02/23/22 03/09/22 Desiree Patrick MD [address] [place] [address] 08/09/17 Farrah Nicole APRN,CEO AND CO FOUNDER [address] [place] [address] 08/09/17 Bry Echevarria MD [address] [place] [address] 08/09/17 Casey Berry II, DO 08/09/17 Shruti Vergara RN RN Registered Nurse 08/27/20 documented as of this encounter Additional Source Comments PLEASE NOTE: Replies to this message will not be received.[facility] and [facility]
--- OUTSIDE RECORDS SUMMARY | 2024-03-16 16:20 | XMS_ITS | Encounter Summary ---
Author Organization [employer] Address [address] [place] [address] Care Team Providers Care Weir Fisher Name Role Phone Jamal CARLISLE DO, Robert William Primary Care Provide r Unavailable Desiree Patrick MD Unavailable Farrah Nicole APRN,DEVELOPMENT AND PLANNING ENGINEER Unavailable [phone] Bry Echevarria MD Unavailable Jamal CARLISLE DO, Robert William Unavailable Unav Stephani Diaz MD Primary Care Provider Shruti Vergara RN Unavailable Unavailable Bianka Loera CNP Primary Care Provider Desiree Patrick MD Primary Care P rovider Encounter Details Date Type Department Care Team (Late st Contact Info) Description 04/06/2017 Historical Conversion [facility] Family Medicine [address] [place] [address] Casey Berry II, DO Social History Tobacco [...] on filedocumented in this encounter Care Teams Weir Fisher Relationship Specialty Start Date End Date Casey Berry II, DO PCP - General 11/22/06 08/17/19 Stephani Aleman MD PCP - General Family Medicine 08/18/19 09/16/20 Bianka Loera CNP [address] [place] [phone] PCP - General Nurse Practitioner Family 09/17/2001/10 [place] [address] [place] [phone] PCP - General Electrophysiology 02/23/22 03/09/22 Desiree Patrick MD [address] [place] [address] 08/09/17 Farrah Nicole APRN,DEVELOPMENT AND PLANNING ENGINEER [address] [place] [address] 08/09/17 Bry Echevarria MD [address] [place] [address] 08/09/17 Casey Berry II, DO 08/09/17 Shruti Vergara RN RN Registered Nurse 08/27/20 documented as of this encounter Additional Source Comments PLEASE NOTE: Replies to this message will not be received.[facility] and [facility]
--- OUTSIDE RECORDS SUMMARY | 2024-03-16 16:20 | XMS_ITS | Encounter Summary ---
Author Organization [employer] Address [address] [place] [address] Care Team Providers Care Human Resource Advisor Name Role Phone Jamal CARLISLE DO, Robert William Primary Care Provide r Unavailable Desiree Patrick MD Unavailable Farrah Nicole APRN,ELASTIC YARN TWISTER HELPER Unavailable Bry Echevarria MD Unavailable Jamal CARLISLE DO, Robert William Unavailable Unav Stephani Diaz MD Primary Care Provider Shruti Vergara RN Unavailable Unavailable Bianka Loera CNP Primary Care Provider Desiree Patrick MD Primary Care P rovider Encounter Details Date Type Department Care Team (Late st Contact Info) Description 03/01/2018 Historical Conversion [facility] Family Medicine [address] [facility] [place] [address] Desiree Rubi PAC [address] [place] [address] Social History Tobacco Use Types [...] Body Mass Index 26.81 09/07/2017 12:00 AM SHAREPOINT ANALYST documented in this encounter Functional Status Functional [...] CDT UROLOGY CRISTIAN BLEDSOE : 1945 HX: [id number] DOS: 03/01/2018 HISTORY OF PRESENT ILLNESS: This [...] of the tissue. 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 [...] think he normally sees Farrah Jacobo APRN, ELASTIC YARN TWISTER HELPER, at [facility], so we will try to [...] meantime we will check with Cardiology in [place] about the option of Viagra or Cialis [...] P.A.-C./jmf- 24 cc: Jose Winslow M.D./Radiation Oncology [facility] cc: Casey Berry D.O./[facility] cc: Moon Maloney M.D./[facility] Electronically signed by:Desiree Rubi PA-C Mar 04 2018 1:27PM SHAREPOINT ANALYST documented in this encounter Plan of Treatment Not on file documented as of this encounter Visit Diagnoses Not on filedocumented in this encounter Care Teams Human Resource Advisor Relationship Specialty Start Date End Date Casey Berry II, DO PCP - General 11/22/06 08/17/19 Stephani Aleman MD PCP - General Family Medicine 08/18/19 09/16/20 Bianka Loera HAIR SPRING WINDER [address] [place] [address] PCP - General Nurse Practitioner Family 09/17/20 712/31 Desiree Patrick MD [address] [place] [address] PCP - General Electrophysiology 02/23/22 03/09/22 Desiree Patrick MD [address] [place] [address] 08/09/17 Farrah Nicole APRN,ELASTIC YARN TWISTER HELPER [address] [place] [address] 08/09/17 Bry Echevarria MD [facility] [place] [address] 08/09/17 Casey Berry II, DO 08/09/17 Shruti Vergara RN RN Registered Nurse 08/27/20 documented as of this encounter Additional Source Comments PLEASE NOTE: Replies to this message will not be received.[facility] and [facility]
--- OUTSIDE RECORDS SUMMARY | 2024-03-16 16:20 | XMS_ITS | Encounter Summary ---
Author Organization [employer] Address [address] [place] [address] Care Team Providers Care Auto Claim Representative Name Role Phone Jamal CARLISLE DO, Robert William Primary Care Provide r Unavailable Desiree Patrick MD Unavailable Farrah Nicole APRN,TIMBER MANAGEMENT ASSISTANT Unavailable [phone] Bry Echevarria MD Unavailable [phone] Jamal CARLISLE DO, Robert William Unavailable Unav Stephani Diaz MD Primary Care Provider Shruti Vergara RN Unavailable Unavailable Bianka Loera CNP Primary Care Provider [phone] Desiree Patrick MD Primary Care P rovider Encounter Details Date Type Department Care Team (Late st Contact Info) Description 03/30/2017 Historical Conversion [facility] Family Medicine [address] [facility] [address] Desiree Rubi PAC [address] [place] [address] Social History Tobacco Use Types [...] filedocumented in this encounter Care Teams Auto Claim Representative Relationship Specialty Start Date End Date Casey Berry II, DO PCP - General 11/22/06 08/17/19 Stephani Aleman MD PCP - General Family Medicine 08/18/19 09/16/20 Bianka Loera CNP [address] [place] [place] [address] 2 [place] [address] PCP - General Nurse Practitioner Family 09/17/20 712/31 Desiree Patrick MD [address] [place] [address] PCP - General Electrophysiology 02/23/22 03/09/22 Desiree Patrick MD [address] [place] [address] 08/09/17 Farrah Nicole APRN,TIMBER MANAGEMENT ASSISTANT [address] [place] [address] 08/09/17 Bry Echevarria MD [address] [place] [address] 08/09/17 Casey Berry II, DO 08/09/17 Shruti Vergara RN RN Registered Nurse 08/27/20 documented as of this encounter Additional Source Comments PLEASE NOTE: Replies to this message will not be received.[facility] and [facility]
--- OUTSIDE RECORDS SUMMARY | 2024-03-16 16:21 | XMS_ITS | Encounter Summary ---
Author Organization [employer] Address [address] [place] [address] Care Team Providers Care Boiler Repairman Name Role Phone Jamal CARLISLE DO, Robert William Primary Care Provide r Unavailable Desiree Patrick MD Unavailable Farrah Nicole APRN,ALUMINUM BOAT ASSEMBLY SUPERVISOR Unavailable [phone] Bry Echevarria MD Unavailable Jamal CARLISLE DO, Robert William Unavailable Unav Stephani Diaz MD Primary Care Provider Shruti Vergara RN Unavailable Unavailable Bianka Loera CNP Primary Care Provider Desiree Patrick MD Primary Care P rovider Encounter Details Date Type Department Care Team (Late st Contact Info) Description 10/26/2016 Historical Conversion [facility] Family Medicine [address] [place] [address] Casey Berry II, DO Social History Tobacco [...] filedocumented in this encounter Care Teams Boiler Repairman Relationship Specialty Start Date End Date Casey Berry II, DO PCP - General 11/22/06 08/17/19 Stephani Aleman MD PCP - General Family Medicine 08/18/19 09/16/20 Bianka Loera CNP [address] [place] [address] 2 [place] [phone] PCP - General Nurse Practitioner Family 09/17/2001/10 [place] [address] [place] [address] PCP - General Electrophysiology 02/23/22 03/09/22 Desiree Patrick, MD [address] [place] [address] 08/09/17 Farrah Nicole APRN,[facility] [address] [place] [address] 08/09/17 Bry Echevarria MD [address] [place], [place] [address] [address] 08/09/17 Casey Berry II, DO 08/09/17 Shruti Vergara RN RN Registered Nurse 08/27/20 documented as of this encounter Additional Source Comments PLEASE NOTE: Replies to this message will not be received.[facility] and [facility]
--- OUTSIDE RECORDS SUMMARY | 2024-03-16 16:21 | XMS_ITS | Encounter Summary ---
Author Organization [employer] Address [address] [place] [address] Care Team Providers Care Sustainability Project Manager Name Role Phone Jamal CARLISLE DO, Robert William Primary Care Provide r Unavailable Desiree Patrick MD Unavailable Farrah Nicole APRN,REVENUE TAX SPECIALIST Unavailable [phone] Bry Echevarria MD Unavailable Jamal CARLISLE DO, Robert William Unavailable Unav Stephani Diaz MD Primary Care Provider Shruti Vergara RN Unavailable Unavailable Bianka Loera CNP Primary Care Provider Desiree Partick MD Primary Care P rovider Encounter Details Date Type Department Care Team (Late st Contact Info) Description 10/17/2016 Historical Conversion [facility] Family Medicine [address] [place] [address] Social History Tobacco Use Types Packs/Day Years [...] do you have serious difficulty hearing? Yes-slightly CHOCT[place] 10/17/2016 Are you blind or do you [...] as of this encounter Nursing Notes * [facility], GENERICPROVIDER - 10/17/2016 12:00 AM CDT Rohan presented to Urgent Care with complaint of feeling like his heart is racing, he can feel it pounding and a tighness in his chest occurs when this happens. He was seen at [facility] 10 days ago for an episode similar. [...] to be evaluatedin the Emergency Room at [facility]. Patient and his elected to go by private car with patients driving. Electronically signed by:Tammy Coronado RN Oct 17 2016 2:09PM AIR QUALITY ENGINEER AMENDMENTS: 1. Patient declines shortness of breath, radiating neck pain, shoulderblade pain or sternal pain. Electronically signed by:Tammy Coronado RN Oct 17 2016 2:14PM AIR QUALITY ENGINEER documented in this encounter Plan of Treatment Not on file documented as of this encounter Visit Diagnoses Not on filedocumented in this encounter Care Teams Sustainability Project Manager Relationship Specialty Start Date End Date Casey Berry II, DO PCP - General 11/22/06 08/17/19 Stephani Aleman MD PCP - General Family Medicine 08/18/19 09/16/20 Bianka Loera CNP [address] [place] [address] PCP - General Nurse Practitioner Family 09/17/2001/10 Desiree Patrick MD [address] [facility] [place] [address] PCP - General Electrophysiology 02/23/22 03/09/22 Desiree Patrick MD [address] [facility] [place] [address] 08/09/17 Farrah Nicole APRN,REVENUE TAX SPECIALIST [address] [facility] [place] [address] 08/09/17 Bry Echevarria MD [address] [place] [phone] 08/09/17 Casey Berry II, DO 08/09/17 Shruti Vergara, RN RN Registered Nurse 08/27/20 documented as of this encounter Additional Source Comments PLEASE NOTE: Replies to this message will not be received.[facility] and [facility]
--- OUTSIDE RECORDS SUMMARY | 2024-03-16 16:21 | XMS_ITS | Encounter Summary ---
Author Organization [employer] Address [address] [place] [address] Care Team Providers Care Service Assistant Name Role Phone Jamal CARLISLE DO, Robert William Primary Care Provide r Unavailable Desiree Patrick MD Unavailable Farrah Nicole APRN,CREATIVE LEAD Unavailable Bry Echevarria MD Unavailable [phone] Jamal CARLISLE DO, Robert William Unavailable Unav Stephani Diaz MD Primary Care Provider Shruti Vergara RN Unavailable Unavailable Bianka Loera CNP Primary Care Provider Desiree Patrick MD Primary Care P rovider Encounter Details Date Type Department Care Team (Late st Contact Info) Description 02/11/2016 Historical Conversion [facility] Family Medicine [address] [place] [address] Moon Maloney MD Social History Tobacco Use [...] on filedocumented in this encounter Care Teams Service Assistant Relationship Specialty Start Date End Date Casey Berry II, DO PCP - General 11/22/06 08/17/19 Stephani Aleman MD PCP - General Family Medicine 08/18/19 09/16/20 Bianka Loera CNP [address] [place] [phone] PCP - General Nurse Practitioner Family 09/17/2001/10 [place] [address] [place] [address] PCP - General Electrophysiology 02/23/22 03/09/22 Desiree Patrick MD [address] [place] [facility] [address] 08/09/17 Farrah Nicole APRN,[facility] [address] [place] [address] 08/09/17 Bry Echevarria MD [facility] [place] [address] 08/09/17 Casey Berry II, DO 08/09/17 Shruti Vergara RN RN Registered Nurse 08/27/20 documented as of this encounter Additional Source Comments PLEASE NOTE: Replies to this message will not be received.[facility] and [facility]
--- OUTSIDE RECORDS SUMMARY | 2024-03-16 16:21 | XMS_ITS | Encounter Summary ---
Author Organization [employer] Address [address] [place] [address] Care Team Providers Care Toppiece Chopper Name Role Phone Jamal CARLISLE DO, Robert William Primary Care Provide r Unavailable Desiree Patrick MD Unavailable Farrah Nicole APRN,SENIOR ORACLE DEVELOPER Unavailable Bry Echevarria MD Unavailable Jamal CARLISLE DO, Robert William Unavailable Unav Stephani Diaz MD Primary Care Provider [phone] Shruti Vergara RN Unavailable Unavailable Bianka Loera CNP Primary Care Provider [phone] Desiree Patrick MD Primary Care P rovider Encounter Details Date Type Department Care Team (Late st Contact Info) Description 12/01/2016 Historical Conversion [facility] Family Medicine [address] [place] [address] Moon Maloney MD Social History Tobacco Use [...] on filedocumented in this encounter Care Teams Toppiece Chopper Relationship Specialty Start Date End Date Casey Berry II, DO PCP - General 11/22/06 08/17/19 Stephani Aleman MD PCP - General Family Medicine 08/18/19 09/16/20 Bianka Loera CNP [address] [place] [address] 2 [place] [phone] PCP - General Nurse Practitioner Family 09/17/2001/10 [place] [address] [place] [phone] PCP - General Electrophysiology 02/23/22 03/09/22 Desiree Patrick MD [address] [place] [address] 08/09/17 Farrah Nicole APRN,SENIOR ORACLE DEVELOPER [address] [place] [address] 08/09/17 Bry Echevarria MD [address] [place] [address] 08/09/17 Casey Berry II, DO 08/09/17 Shruti Vergara RN RN Registered Nurse 08/27/20 documented as of this encounter Additional Source Comments PLEASE NOTE: Replies to this message will not be received.[facility] and [facility], [facility]
--- OUTSIDE RECORDS SUMMARY | 2024-03-16 16:21 | XMS_ITS | Encounter Summary ---
Author Organization [employer] Address [address] [place] [address] Care Team Providers Care Hospital Cna Name Role Phone Jamal CARLISLE DO, Robert William Primary Care Provide r Unavailable Desiree Patrick MD Unavailable Farrah Nicole APRN,BUCKET TURNER Unavailable Bry Echevarria MD Unavailable Jamal CARLISLE DO, Robert William Unavailable Unav Stephani Diaz MD Primary Care Provider Shruti Vergara RN Unavailable Unavailable Bianka Loera CNP Primary Care Provider [phone] Desiree Patrick MD Primary Care P rovider Encounter Details Date Type Department Care Team (Late st Contact Info) Description 10/21/2016 Historical Conversion [facility] Family Medicine [address] [place] [address] Social History Tobacco Use Types Packs/Day Years [...] on filedocumented in this encounter Care Teams Hospital Cna Relationship Specialty Start Date End Date Casey Berry II, DO PCP - General 11/22/06 08/17/19 Stephani Aleman MD PCP - General Family Medicine 08/18/19 09/16/20 Bianka Loera CNP [address] [place] [phone] PCP - General Nurse Practitioner Family 09/17/2001/10 Desiree Patrick MD [address] [place] [address] PCP - General Electrophysiology 02/23/22 03/09/22 Desiree Patrick MD [address] [place] [address] 08/09/17 Farrah Nicole APRN,BUCKET TURNER [address] [place] [address] 08/09/17 Bry Echevarria MD [address] [place] [phone] 08/09/17 Casey Berry II, DO 08/09/17 Shruti Vergara RN RN Registered Nurse 08/27/20 documented as of this encounter Additional Source Comments PLEASE NOTE: Replies to this message will not be received.[facility] and [facility]
--- OUTSIDE RECORDS SUMMARY | 2024-03-16 16:21 | XMS_ITS | Encounter Summary ---
Author Organization [employer] Address [address] [place] [address] Care Team Providers Care Documentation Consultant Name Role Phone Jamal CARLISLE DO, Robert William Primary Care Provide r Unavailable Desiree Patrick MD Unavailable Farrah Nicole APRN,NURSING ADMIN Unavailable Bry Echevarria MD Unavailable [phone] Jamal CARLISLE DO, Robert William Unavailable Unav Stephani Diaz MD Primary Care Provider [phone] Shruti Vergara RN Unavailable Unavailable Bianka Loera CNP Primary Care Provider Desiree Patrick MD Primary Care P rovider Encounter Details Date Type Department Care Team (Late st Contact Info) Description 08/27/2016 Historical Conversion [facility] Family Medicine [address] [place] [address] Moon Maloney MD Social History Tobacco Use [...] Comments Blood Pressure 175/101 08/27/2016 12:00 AM PARAOPTOMETRIC Pulse - - Temperature - - Respiratory Rate - - Oxygen Saturation - - Inhaled Oxygen Concentration - - Weight 95.7 kg (210 lb 15.7 oz) 017 12:00 AM PARAOPTOMETRIC Height - - Body Mass Index 27.84 [...] on filedocumented in this encounter Care Teams Documentation Consultant Relationship Specialty Start Date End Date Casey Berry II, DO PCP - General 11/22/06 08/17/19 Stephani Aleman MD PCP - General Family Medicine 08/18/19 09/16/20 Bianka Loera CNP [address] [place] [phone] PCP - General Nurse Practitioner Family 09/17/2001/10 [place] [address] [place] [phone] PCP - General Electrophysiology 02/23/22 03/09/22 Desiree Patrick MD [address] [place] [address] 08/09/17 Farrah Nicole APRN,[facility] [address] [place] [address] 08/09/17 Bry Echevarria MD [address] [place] [address] [place] [address] 08/09/17 Casey Berry II, DO 08/09/17 Shruti Vergara RN RN Registered Nurse 08/27/20 documented as of this encounter Additional Source Comments PLEASE NOTE: Replies to this message will not be received.[facility] and [facility]
--- OUTSIDE RECORDS SUMMARY | 2024-03-16 16:21 | XMS_ITS | Encounter Summary ---
Author Organization [employer] Address [address] [place] [address] Care Team Providers Care Income Tax Adjuster Name Role Phone Jamal CARLISLE DO, Robert William Primary Care Provide r Unavailable Desiree Patrick MD Unavailable Farrah Nicole APRN,SENIOR SYSTEM OPERATOR Unavailable [phone] Bry Echevarria MD Unavailable Jamal CARLISLE DO, Robert William Unavailable Unav Stephani Diaz MD Primary Care Provider Shruti Vergara RN Unavailable Unavailable Bianka Loera CNP Primary Care Provider Desiree Patrick MD Primary Care P rovider Encounter Details Date Type Department Care Team (Late st Contact Info) Description 12/31/2016 Historical Conversion [facility] Family Medicine [address] [facility] [place] [address] Desiree Rubi PAC [address] [place] [address] Social History Tobacco Use Types [...] CST UROLOGY CRISTIAN LADI : 1945 HX: [id number] DOS: 08/31/2017 HISTORY OF PRESENT ILLNESS: Anurag [...] 2% of the specimen. He also had Waverly 7 cancer at the left mid-prostate involving 5% of the tissue, the right mid-prostate had Waverly 7 cancer again involving 20% of the [...] 1. 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 He is status post EBRT [...] by:Desiree Rubi PA-C Sep 02 2017 5:01PM SUPERVISOR SIGN SHOP * Desiree Rubi - 03/30/2017 12:00 AM CDT UROLOGY CRISTIAN BLEDSOE : 1945 HX: [id number] DOS: 03/30/2017 HISTORY OF PRESENT ILLNESS: 71-year-old male who presents to the Urology clinic today. The patient was previously noted to have a rubbery nodularity on both sides of the prostate. He had PSA velocity change. In August he had a PCA3 test that came back positive. He had a biopsy October 2016. Pathology showed a Waverly 6 prostate cancer at the left base of the prostate involving 2% of thespecimen. He had a Curt 7 cancer at the left mid prostate involving less than 5% of the tissue. The right mid prostate he had Waverly 7 cancer involving 20% of the tissue [...] treatment. He has adenocarcinoma of the prostate. Waverly 7 cancer. He had beenon Lupron for [...] Mare Rubi P.A.-C./ cc: Dr. Moon Maloney [facility] Radha Winslow [facility] Radiation Therapy Dept Dr. Casey Berry [facility] Radha Electronically signed by:Desiree Rbui PA-C Apr 02 2017 1:20PM SUPERVISOR SIGN SHOP * Desiree Rubi - 12/31/2016 12:00 AM CDT UROLOGY CRISTIAN BLEDSOE : 1945 HX: [id number] DOS: 12/31/2016 HISTORY OF PRESENT ILLNESS: 71-year-old male who presents to the Urology clinic today. Hehad a velocity change with his PSA. On his prostate exam he had a rubbery nodularity on both sides.It was a symmetrical prostate. His PSA was monitored for a little while. In August he had a [facility] 3test and that came back positive. He was brought back for a prostate biopsy October 23, 2016. His pathology showed Curt 6 cancer at the left base of the prostate involving 2% of the specimen. He hadGleason 7 cancer at the left mid prostate involving less than 5% of the tissue. The right mid prostate he had a Waverly 7 cancer involving 20% of the specimen [...] 28 cc: Dr. Moon Maloney [facility] Radha Winslow [facility] Dr. Casey Berry [facility] Radha Electronically signed by:Desiree Rubi PA-C Jan 06 2017 4:31PM SUPERVISOR SIGN SHOP Author documented in this encounter Plan of Treatment Not on file documented as of this encounter Visit Diagnoses Not on filedocumented in this encounter Care Teams Income Tax Adjuster Relationship Specialty Start Date End Date Casey Berry II, DO PCP - General 11/22/06 08/17/19 Stephani Aleman MD PCP - General Family Medicine 08/18/19 09/16/20 Bianka Loera CNP [address] [place] [phone] PCP - General Nurse Practitioner Family 09/17/20 712/31 Desiree Patrick MD [address] [place] [address] PCP - General Electrophysiology 02/23/22 03/09/22 Desiree Patrick MD [address] [place] [address] 08/09/17 Farrah Nicole APRN,SENIOR SYSTEM OPERATOR [address] [place] [address] 08/09/17 Bry Echevarria MD [address] [place] [address] 08/09/17 Casey Berry II, DO 08/09/17 Shruti Vergara, RN RN Registered Nurse 08/27/20 documented as of this encounter Additional Source Comments PLEASE NOTE: Replies to this message will not be received.[facility] and [facility]
--- OUTSIDE RECORDS SUMMARY | 2024-03-16 16:21 | XMS_ITS | Encounter Summary ---
Author Organization [facility] [facility] Address [address] [place] [address] Care Team Providers Care Nail Technician Name Role Phone Jamal CARLISLE DO, Robert William Primary Care Provide r Unavailable Desiree Patrick MD Unavailable Farrah Nicole APRN,MANAGER INTENSIVE CARE UNIT Unavailable Bry Echevarria MD Unavailable Jamal CARLISLE DO, Robert William Unavailable Unav Stephani Diaz MD Primary Care Provider Shruti Vergara RN Unavailable Unavailable Bianka Loera CNP Primary Care Provider Desiree Patrick MD Primary Care P rovider Encounter Details Date Type Department Care Team (Late st Contact Info) Description 12/31/2016 HIM Technical Stenographer [facility] [address] [address] Gil Solares MD Social History Tobacco Use [...] ADULT WITH OR WITHOUT CONTRAST PERFORMED BY: [employer] [place] SITE: [place] INTERPRETED BY: [facility] [place] TRANSTHORACIC ECHOCARDIOGRAM REPORT REFERRING DIAGNOSIS: Paroxysmal [...] fibrillation. Note: This study was performed by [employer] for [place]. Only the interpretation wasperformed at the [facility] [place]. Electronically signed Gil Solares MD, [facility] Project Program Manager , 04:45 P A kmg/Doc#: [id number] cc: Adult Normal Value Adult Patient Values [...] Blood pressure: 116/81 mmHg Previous study: 11/19/15 Assistance Representative: WAT[place] documented in this encounter Plan of [...] - 12/31/2016 12:00 AM CDT PERFORMED BY: [employer] [place] SITE: [place] INTERPRETED BY: [facility] [place], [place] TRANSTHORACIC [...] fibrillation. Note: This study was performed by [facility] for [place].Only the interpretation was performed at the [facility]. Electronically signed Gil Solares MD, [facility] Project Program Manager , 04:45 P A taylag/Doc#: [id number] cc: Adult Normal Value Adult Patient Values [...] dt 254 ms E' sept 6.04 cm/sec TUNC181 ms E/e' 10 E' lat 9.65 cm/sec IMPRESSION: Patient height: 185 cm Patient weight: 94 kg Blood pressure: 116/81 mmHg Previous study: 11/19/15 Assistance Representative: HIEU Desiree NICHOLS documented in this encounter Visit Diagnoses Not on filedocumented in this encounter Care Teams Nail Technician Relationship Specialty Start Date End Date Casey Berry II, DO PCP - General 11/22/06 08/17/19 Stephani Aleman MD PCP - General Family Medicine 08/18/19 09/16/20 Bianka Loera, GOODWILL REPRESENTATIVE [address] [place] [phone] PCP - General Nurse Practitioner Family 09/17/20 712/31 Desiree Patrick MD [address] [place] [address] PCP - General Electrophysiology 02/23/22 03/09/22 Desiree Patrick MD [address] [place] [address] 08/09/17 Farrah Nicole APRN,MANAGER INTENSIVE CARE UNIT [address] [place] [address] 08/09/17 Bry Echevarria MD [address] [place] [address] 08/09/17 Casey Berry II, DO 08/09/17 Shruti Vergara RN RN Registered Nurse 08/27/20 documented as of this encounter Additional Source Comments PLEASE NOTE: Replies to this message will not be received.[facility] and [facility]
--- OUTSIDE RECORDS SUMMARY | 2024-03-16 16:21 | XMS_ITS | Encounter Summary ---
Author Organization [employer] Address [address] [place] [address] Care Team Providers Care Vp Lab Name Role Phone Jamal CARLISLE DO, Robert William Primary Care Provide r Unavailable Desiree Patrick MD Unavailable Farrah Nicole APRN,RECORD FILING CLERK Unavailable [phone] Bry Echevarria MD Unavailable Jamal CARLISLE DO, Robert William Unavailable Unav Stephani Diaz MD Primary Care Provider Shruti Vergara RN Unavailable Unavailable Bianka Loera CNP Primary Care Provider [phone] Desiree Patrick MD Primary Care P rovider Encounter Details Date Type Department Care Team (Late st Contact Info) Description 11/30/2016 Historical Conversion [facility] Family Medicine [address] [place] [address] Casey Berry II, DO Social History Tobacco [...] filedocumented in this encounter Care Teams Vp Lab Relationship Specialty Start Date End Date Casey Berry II, DO PCP - General 11/22/06 08/17/19 Stephani Aleman MD PCP - General Family Medicine 08/18/19 09/16/20 Bianka Loera CNP [address] [place] [address] 2 [place] [phone] PCP - General Nurse Practitioner Family 09/17/2001/10 [place] [address] [place] [address] PCP - General Electrophysiology 02/23/22 03/09/22 Desiree Patrick MD [address] [place] [address] 08/09/17 Farrah Nicole APRN,RECORD FILING CLERK [address] [place] [address] 08/09/17 Bry Echevarria MD [facility] [place] [address] 08/09/17 Casey Berry II, DO 08/09/17 Shruti Vergara RN RN Registered Nurse 08/27/20 documented as of this encounter Additional Source Comments PLEASE NOTE: Replies to this message will not be received.[facility] and [facility]
--- OUTSIDE RECORDS SUMMARY | 2024-03-16 16:21 | XMS_ITS | Encounter Summary ---
Author Organization [employer] Address [address] [place] [address] Care Team Providers Care Kids Activities Coach Name Role Phone Jamal CARLISLE DO, Robert William Primary Care Provide r Unavailable Desiree Patrick MD Unavailable Farrah Nicole APRN,MARKETING SPECIALIST Unavailable Bry Echevarria MD Unavailable Jamal CARLISLE DO, Robert William Unavailable Unav xiable Stephani Aleman MD Primary Care Provider Shruti Vergara RN Unavailable Unavailable Bianka Loera CNP Primary Care Provider Desiree Patrick MD Primary Care P rovider Encounter Details Date Type Department Care Team (Late st Contact Info) Description 10/09/2016 Historical Conversion [facility] Family Medicine [address] [facility] [place] [address] Jana Aleman APRN,REAL ESTATE CLOSING COORDINATOR [address] [place] [address] Social History Tobacco Use Types [...] this encounter Progress Notes * Jana Aleman, MELANGEUR OPERATOR,REAL ESTATE CLOSING COORDINATOR - 10/09/2016 12:00 AM CDT Assessment 1. [...] [facility] He is instructed to return should his [...] Thao Phone Number to Contact Patient: : [phone] to Provider, Practice or Agency: : Either Shanda Mark or [facility] Reason For Visit Patient in [...] 1 TABLET BY MOUTH ONCE DAILY; Therapy: 45Bye7373 to (Evaluate:15Pre2776) Requested for: 13Jul2016; Last Rx:13Jul2016 Ordered 3. Metoclopramide HCl - 5 MG Oral Tablet; TAKE 1 TABLET as needed; Therapy: 10Sep2014 to Requested for: 78Qcm3266 Recorded 4. Metoprolol Tartrate 25 MG Oral Tablet; 1 prn a fib; Therapy: (Recorded:52Enf5215) to Requested for: 48Ooa2813 Recorded 5. Tylenol Extra Strength 500 MG Oral Tablet; Therapy: (Recorded:95Ayy0333) to Recorded 6. Warfarin Sodium 5 MG Oral Tablet; Take as directed by ACC; Therapy: 69Bqh8237 to (Evaluate:75Uls3997) Requested for: 14Jul2016 Recorded Allergies 1. Penicillins [...] RN CNP RN,NIKKI; Oct 18 2016 1:54PM ACCOUNT COORDINATOR Electronically signed by : Casey Berry DO; Oct 22 2016 1:20PM ACCOUNT COORDINATOR documented in this encounter Plan of Treatment Not on file documented as of this encounter Visit Diagnoses Not on filedocumented in this encounter Care Teams Kids Activities Coach Relationship Specialty Start Date End Date Casey Berry II, DO PCP - General 11/22/06 08/17/19 Stephani Aleman MD PCP - General Family Medicine 08/18/19 09/16/20 Bianka Loera CNP [address] [facility] [address] [place] [address] PCP - General Nurse Practitioner Family 09/17/20 712/31 [place] [address] [place] [address] [place] [address] PCP - General Electrophysiology 02/23/22 03/09/22 Desiree Patrick MD [address] [place] [address] 08/09/17 Farrah Nicole, MELANGEUR OPERATOR,MARKETING SPECIALIST [address] [place] [address] 08/09/17 Bry Echevarria MD [address] [place] [address] [place] [address] 08/09/17 Casey Berry II, DO 08/09/17 Shruti Vergara RN RN Registered Nurse 08/27/20 documented as of this encounter Additional Source Comments PLEASE NOTE: Replies to this message will not be received.[facility]
--- OUTSIDE RECORDS SUMMARY | 2024-03-16 16:21 | XMS_ITS | Encounter Summary ---
Author Organization [employer] Address [address] [place] [address] Care Team Providers Care Prototype Sewer Name Role Phone Jamal CARLISLE DO, Robert William Primary Care Provide r Unavailable Desiree Patrick MD Unavailable Farrah Nicole APRN,CASER Unavailable Bry Echevarria MD Unavailable Jamal CARLISLE DO, Robert William Unavailable Unav Stephani Diaz MD Primary Care Provider Shruti Vergara RN Unavailable Unavailable Bianka Loera CNP Primary Care Provider Desiree Patrick MD Primary Care P rovider Encounter Details Date Type Department Care Team (Late st Contact Info) Description 12/31/2016 Historical Conversion [facility] Family Medicine [address] [facility] [place] [address] Desiree Rubi PAC [address] [place] [address] Social History Tobacco Use Types [...] on filedocumented in this encounter Care Teams Prototype Sewer Relationship Specialty Start Date End Date Casey Berry II, DO PCP - General 11/22/06 08/17/19 Stephani Aleman MD PCP - General Family Medicine 08/18/19 09/16/20 Bianka Loera CNP [address] [facility] [address] [place] [address] PCP - General Nurse Practitioner Family 09/17/2001/10 Desiree Patrick MD [address] [place] [address] PCP - General Electrophysiology 02/23/22 03/09/22 Desiree Patrick MD [address] [place] [address] 08/09/17 Farrah Nicole APRN,CASER [address] [place] [address] 08/09/17 Bry Echevarria MD [address] [place] [address] [place] [address] 08/09/17 Casey Berry II, DO 08/09/17 Shruti Vergara RN RN Registered Nurse 08/27/20 documented as of this encounter Additional Source Comments PLEASE NOTE: Replies to this message will not be received.[facility] and [facility]
--- OUTSIDE RECORDS SUMMARY | 2024-03-16 16:21 | XMS_ITS | Encounter Summary ---
Author Organization [employer] Address [address] [place] [address] Care Team Providers Care Fiberglass Technician Name Role Phone Jamal CARLISLE DO, Robert William Primary Care Provide r Unavailable Desiree Patrick MD Unavailable Farrah Nicole APRN,METER SUPERVISOR Unavailable Bry Echevarria MD Unavailable [phone] Jamal CARLISLE DO, Robert William Unavailable Unav Stephani Diaz MD Primary Care Provider Shruti Vergara RN Unavailable Unavailable Bianka Loera CNP Primary Care Provider Desiree Patrick MD Primary Care P rovider Encounter Details Date Type Department Care Team (Late st Contact Info) Description 03/10/2016 Historical Conversion [facility] Family Medicine [address] [place] [address] Casey Berry II, DO Social History Tobacco [...] filedocumented in this encounter Care Teams Fiberglass Technician Relationship Specialty Start Date End Date Casey Berry II, DO PCP - General 11/22/06 08/17/19 Stephani Aleman MD PCP - General Family Medicine 08/18/19 09/16/20 Bianka Loera CNP [address] [place] [phone] PCP - General Nurse Practitioner Family 09/17/2001/10 [place] [address] [place] [address] PCP - General Electrophysiology 02/23/22 03/09/22 Desiree Patrick MD [address] [place] [place] [address] 08/09/17 Farrah Nicole APRN,[facility] [address] [place] [place] [address] 08/09/17 Bry Echevarria MD [facility] [place] [address] 08/09/17 Casey Berry II, DO 08/09/17 Shruti Vergara RN RN Registered Nurse 08/27/20 documented as of this encounter Additional Source Comments PLEASE NOTE: Replies to this message will not be received.[facility] and [facility]
--- OUTSIDE RECORDS SUMMARY | 2024-03-16 16:21 | XMS_ITS | Encounter Summary ---
Author Organization [employer] Address [address] [place] [address] Care Team Providers Care Sign Hanger Supervisor Name Role Phone Jamal CARLISLE DO, Robert William Primary Care Provide r Unavailable Desiree Patrick MD Unavailable Farrah Nicole APRN,CONTINUOUS MINING OPERATOR Unavailable Bry Echevarria MD Unavailable Jamal CARLISLE DO, Robert William Unavailable Unav Stephani Diaz MD Primary Care Provider Shruti Vergara RN Unavailable Unavailable Bianka Loera CNP Primary Care Provider Desiree Patrick MD Primary Care P rovider Encounter Details Date Type Department Care Team (Late st Contact Info) Description 09/02/2016 Historical Conversion [facility] Family Medicine [address] [place] [address] Casey El II, DO Social History Tobacco [...] Comments Blood Pressure 151/81 09/02/2016 12:00 AM MOTION PICTURE EQUIPMENT MACHINIST Pulse - - Temperature - - Respiratory Rate - - Oxygen Saturation - - Inhaled Oxygen Concentration - - Weight 93.5 kg (206 lb 2.1 oz) 09/02/2016 12:00 AM MOTION PICTURE EQUIPMENT MACHINIST Height 185.1 cm (6' 0.87) 09/02/2016 12:00 AM [employer] Body Mass Index 27.29 09/02/2016 12:00 AM MOTION PICTURE EQUIPMENT MACHINIST documented in this encounter Functional Status Functional [...] as needed; Therapy: 10Sep2014 to Requested for: 68Rng4889 Recorded 7. Metoprolol Tartrate 50 MG Oral Tablet; TAKE 1 TABLET TWICE DAILY; Therapy: (Recorded:21Oct2016) to Recorded 8. Tylenol Extra Strength 500 MG Oral Tablet; Therapy: (Recorded:18Nov2015) to Recorded 9. Warfarin Sodium 5 MG Oral Tablet; Take as directed by ACC; Therapy: 59Azn5779 to (Evaluate:35Llz4590) Requested for: 16Tvp4894; Last Rx:70Kjw7752 Ordered Allergies 1. Penicillins 2. Sulfa Drugs [...] Casey El DO; Apr 16 2017 8:13AM MOTION PICTURE EQUIPMENT MACHINIST * Casey El II, DO - 11/30/2016 [...] healthy by no longer smoking.; Status:Complete; Done: 69Xjs4571 Counseling Total time of encounter was 20 [...] first. At this point in time, the Transformer Molder has not stated that he a risk [...] as needed; Therapy: 10Sep2014 to Requested for: 12Cju3124 Recorded 4. Metoprolol Tartrate 50 MG Oral Tablet; TAKE 1 TABLET TWICE DAILY; Therapy: (Recorded:21Oct2016) to Recorded 5. Tylenol Extra Strength 500 MG Oral Tablet; Therapy: (Recorded:18Nov2015) to Recorded 6. Warfarin Sodium 5 MG Oral Tablet; Take as directed by [facility]; Therapy: 20Dhm6186 to (Evaluate:12Nov2017) Requested for: 17Nov2016 Recorded Allergies 1. Penicillins 2. Sulfa Drugs Vitals Recorded: 30Nov2016 10:12AM Systolic 121 Diastolic 83 Heart Rate 106 Respiration 20 Temperature 98 F Weight 94.2 kg BMI Calculated 27.49 BSA Calculated 2.18 O2 Saturation 97 Physical Exam Deferred. Signatures Casey El II, D.OWilliam/pj-30 Electronically signed by : Casey El DO; Dec 09 2016 1:14PM MOTION PICTURE EQUIPMENT MACHINIST * Casey El II, DO - 10/26/2016 12:00 AM CDT Assessment 1. Former smoker: 0 - 10 pack years (V15.82) (Z87.891) Atrial fibrillation/flutter. Plan Awaiting Holter monitor to see what is going to be done next with the Transformer Molder and most likely,Electrophysiology. We finally did get the results from the Holter which showed flutter and they will send him to see the Can Bander Operator. Reason For Visit patient in for [...] Extra Strength 500 MG Oral Tablet; Therapy: (Recorded:82Tqo1282) to Recorded 6. Warfarin Sodium 5 MG Oral Tablet; Take as directed by ACC; Therapy: 21Jwv2058 to (Evaluate:89Pgk2766) Requested for: 14Jul2016 Recorded Allergies 1. Penicillins 2. Sulfa Drugs Vitals Recorded: 68Uqm0921 10:40AM Systolic 117, RUE, Sitting Diastolic 73, [...] Casey El DO; Nov 06 2016 8:45AM MOTION PICTURE EQUIPMENT MACHINIST documented in this encounter H&P Notes * [...] Panel; Status:Hold For - Manual Activation; Requested for:50Ebe8041; Hemoglobin A1C; Status:Hold For - Manual Activation; Requested for:04Jdu9148; SocHx: Former smoker: 0 - 10 pack years Former Smoker: Since tobacco use can have significant health risks, you are helping yourself and others stay healthy by no longer smoking.; Status:Complete; Done: 64Djq7525 Reason For Visit H & P History [...] alcohol. 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 Colonoscopy in 2009. Pneumovax 2009. Prevnar 2015. Current Meds 1. Lisinopril 10 MG Oral Tablet; TAKE 1 TABLET BY MOUTH ONCE DAILY; Therapy: 96Qcj2156 to (Evaluate:23Vnm3520) Requested for: 13Jul2016; Last Rx:13Jul2016 Ordered 2. Metoclopramide HCl - 5 MG Oral Tablet; TAKE 1 TABLET as needed; Therapy: 10Sep2014 to Requested for: 02Sep2016 Recorded 3. Metoprolol Tartrate 25 MG Oral Tablet; 1 prn a fib; Therapy: (Recorded:02Sep2016) to Requested for: 02Sep2016 Recorded 4. Tylenol Extra Strength 500 MG Oral Tablet; Therapy: (Recorded:34Ugr0096) to Recorded 5. Warfarin Sodium 5 MG Oral Tablet; Take as directed by ACC; Therapy: 28Jan2016 to (Evaluate:80Kmj1053) Requested for: 14Jul2016 Recorded Allergies 1. Penicillins [...] rash. /RECTAL: Done by urology. Results/Data PHQ-9 40Ijl5409 12:00AM Casey El Test Name Result Flag Reference PHQ-9 0 Alcohol & Drug Questionnaire for Adults 15Ifj2559 12:00AM Casey El Test Name Result Flag Reference Alcohol & Drug Questionnaire for Adults 3 Nurse Note Pt given heel cups by dr el. #[id number] qty 2. mquam concrete engineering technician Recorded as Task Date: 09/14/2016 01:01 PM, [...] if you have any questions! Cherelle Gomez [facility] #[id number] Kelly Walls - 15 Sep 2016 7:16 AM TASK REASSIGNED: Previously Assigned To Kelly Walls Michelle - 15 Sep 2016 9:00 AM TASK REASSIGNED: Previously Assigned To Casey El per dr el- dx plantar fasciitis M72.2 thanks. mquam concrete engineering technician Signatures Casey El II D.Veena/la-3 Electronically signed by : Casey El DO; Sep 11 2016 1:25PM MOTION PICTURE EQUIPMENT MACHINIST Electronically signed by : Casey El DO; Sep 16 2016 12:34PM MOTION PICTURE EQUIPMENT MACHINIST documented in this encounter Plan of Treatment Not on file documented as of this encounter Visit Diagnoses Not on filedocumented in this encounter Care Teams Sign Hanger Supervisor Relationship Specialty Start Date End Date Casey El II, DO PCP - General 11/22/06 08/17/19 Stephani Aleman MD PCP - General Family Medicine 08/18/19 09/16/20 Bianka Loera BOAT LOADER HELPER [address] [facility] 2 [place] [address] PCP - General Nurse Practitioner Family 09/17/20 7/2 12/31 Desiree Patrick MD [address] [place] [address] PCP - General Electrophysiology 02/23/22 03/09/22 Desiree Patrick MD [address] [place] [address] 08/09/17 Farrah Nicole APRN,CONTINUOUS MINING OPERATOR [address] [place] [address] 08/09/17 Bry Echevarria MD [address] [place] [address] [place] [address] 08/09/17 Casey El II, DO 08/09/17 Shruti Vergara, RN RN Registered Nurse 08/27/20 documented as of this encounter Additional Source Comments PLEASE NOTE: Replies to this message will not be received.[facility]
--- OUTSIDE RECORDS SUMMARY | 2024-03-16 16:21 | XMS_ITS | Encounter Summary ---
Author Organization [employer] Address [address] [place] [address] Care Team Providers Care Client Services Specialist Name Role Phone Jamal CARLISLE DO, Robert William Primary Care Provide r Unavailable Desiree Patrick MD Unavailable Farrah Nicole APRN,CAKE WASHER Unavailable Bry Echevarria MD Unavailable [phone] Jamal CARLISLE DO, Robert William Unavailable Unav Stephani Diaz MD Primary Care Provider [phone] Shruti Vergara RN Unavailable Unavailable Bianka Loera CNP Primary Care Provider [phone] Desiree Patrick MD Primary Care P rovider Encounter Details Date Type Department Care Team (Late st Contact Info) Description 10/17/2016 Historical Conversion [facility] Family Medicine [address] [place] [address] Social History Tobacco Use Types Packs/Day Years [...] do you have serious difficulty hearing? Yes-slightly [employer] 10/17/2016 Are you blind or do you [...] on filedocumented in this encounter Care Teams Client Services Specialist Relationship Specialty Start Date End Date Casey Berry II, DO PCP - General 11/22/06 08/17/19 Stephani Aleman MD PCP - General Family Medicine 08/18/19 09/16/20 Bianka Loera CNP [address] [place] [address] PCP - General Nurse Practitioner Family 09/17/2001/10 [place] [address] [place] [address] PCP - General Electrophysiology 02/23/22 03/09/22 Desiree Patrick MD [address] [place] [facility] [place] [address] 08/09/17 Farrah Nicole APRN,[facility] [address] [place] [address] 08/09/17 Bry Echevarria MD [address] [place] [address] [place] [address] 08/09/17 Casey Berry II, DO 08/09/17 Shruti Vergara RN RN Registered Nurse 08/27/20 documented as of this encounter Additional Source Comments PLEASE NOTE: Replies to this message will not be received.[facility]
--- OUTSIDE RECORDS SUMMARY | 2024-03-16 16:21 | XMS_ITS | Encounter Summary ---
Author Organization [employer] Address [address] [place] [address] Care Team Providers Care Entry Level Software Engineer Name Role Phone Jamal CARLISLE DO, Robert William Primary Care Provide r Unavailable Desiree Patrick MD Unavailable Farrah Nicole APRN,TEMPERATURE REGULATOR Unavailable Bry Echevarria MD Unavailable Jamal CARLISLE DO, Robert William Unavailable Unav Stephani Diaz MD Primary Care Provider [phone] Shurti Vergara RN Unavailable Unavailable Bianka Loera CNP Primary Care Provider Desiree Patrick MD Primary Care P rovider Encounter Details Date Type Department Care Team (Late st Contact Info) Description 10/08/2016 Historical Conversion [facility] Family Medicine [address] [place] [address] Social History Tobacco Use Types Packs/Day Years [...] Notes * [facility], GENERICPROVIDER - 10/08/2016 12:00 AM [...] chest pain or confusion. Patient instructed by check writer salesperson to go to the Emergency Room at [facility] to be evaluated. Patient verbalized understanding of instructions. STACY MCCAULEY Electronically signed by:Tammy Coronado RN Oct 08 2016 8:22AM BEEF BREAKER documented in this encounter Plan of Treatment Not on file documented as of this encounter Visit Diagnoses Not on filedocumented in this encounter Care Teams Entry Level Software Engineer Relationship Specialty Start Date End Date Casey Berry II, DO PCP - General 11/22/06 08/17/19 Stephani Aleman MD PCP - General Family Medicine 08/18/19 09/16/20 Bianka Loera CNP [address] [facility] [address] [place] [address] PCP - General Nurse Practitioner Family 09/17/2001/10 Desiree Patrick MD [address] [facility] [place] [address] PCP - General Electrophysiology 02/23/22 03/09/22 Desiree Patrick MD [address] [facility] [place] [address] 08/09/17 Farrah Nicole, GRAZING AIDE,TEMPERATURE REGULATOR [address] [facility] [place] [address] 08/09/17 Bry Echevarria MD [address] [place] [address] 08/09/17 Casey Berry II, DO 08/09/17 Shruti Vergara RN RN Registered Nurse 08/27/20 documented as of this encounter Additional Source Comments PLEASE NOTE: Replies to this message will not be received.[facility] and Replaced By [facility]
--- OUTSIDE RECORDS SUMMARY | 2024-03-16 16:21 | XMS_ITS | Encounter Summary ---
Author Organization [employer] Address [address] [place] [address] Care Team Providers Care Cargo And Ramp Services Manager Name Role Phone Jamal CARLISLE DO, Robert William Primary Care Provide r Unavailable Desiree Patrick MD Unavailable Farrah Nicole APRN,WEDDING CAKE DESIGNER Unavailable Bry Echevarria MD Unavailable [phone] Jamal CARLISLE DO, Robert William Unavailable Unav Stephani Diaz MD Primary Care Provider Shruti Vergara RN Unavailable Unavailable Bianka Loera CNP Primary Care Provider [phone] Desiree Patrick MD Primary Care P rovider Encounter Details Date Type Department Care Team (Late st Contact Info) Description 11/06/[address] [facility] Family Medicine [address] [place] [phone] Moon Maloney MD Social History Tobacco Use [...] on filedocumented in this encounter Care Teams Cargo And Ramp Services Manager Relationship Specialty Start Date End Date Casey Berry II, DO PCP - General 11/22/06 08/17/19 Stephani Aleman MD PCP - General Family Medicine 08/18/19 09/16/20 Bianka Loera CNP [address] [place] [address] 2 [place] [phone] PCP - General Nurse Practitioner Family 09/17/2001/10 Desiree Patrick MD [address] [place] [address] PCP - General Electrophysiology 02/23/22 03/09/22 Desiree Patrick MD [address] [place] [address] 08/09/17 Farrah Nicole APRN,WEDDING CAKE DESIGNER [address] [place] [address] 08/09/17 Bry Echevarria MD [address] [place] [address] 08/09/17 Casey Berry II, DO 08/09/17 Shruti Vergara RN RN Registered Nurse 08/27/20 documented as of this encounter Additional Source Comments PLEASE NOTE: Replies to this message will not be received.[facility] and [facility]
--- OUTSIDE RECORDS SUMMARY | 2024-03-16 16:21 | XMS_ITS | Encounter Summary ---
Author Organization [employer] Address [address] [place] [address] Care Team Providers Care Helper Driver Name Role Phone Jamal CARLISLE DO, Robert William Primary Care Provide r Unavailable Desiree Patrick MD Unavailable Farrah Nicole APRN,MANAGER LIFE Unavailable Bry Echevarria MD Unavailable [phone] Jamal CARLISLE DO, Robert William Unavailable Unav Stephani Diaz MD Primary Care Provider Shruti Vergara RN Unavailable Unavailable Bianka Loera CNP Primary Care Provider Desiree Patrick MD Primary Care P rovider Encounter Details Date Type Department Care Team (Late st Contact Info) Description 06/24/2016 Historical Conversion [facility] Family Medicine [address] [place] [phone] Casey Berry II, DO Social History Tobacco [...] Comments Blood Pressure 115/76 06/24/2016 12:00 AM DRY KILN WORKER Pulse - - Temperature - - Respiratory Rate - - Oxygen Saturation - - Inhaled Oxygen Concentration - - Weight 91.5 kg (201 lb 11.5 oz) 016 12:00 AM DRY KILN WORKER Height - - Body Mass Index 26.61 [...] on filedocumented in this encounter Care Teams Helper Driver Relationship Specialty Start Date End Date Casey Berry II, DO PCP - General 11/22/06 08/17/19 Stephani Aleman MD PCP - General Family Medicine 08/18/19 09/16/20 Bianka Loera CNP [address] [place] [phone] PCP - General Nurse Practitioner Family 09/17/2001/10 Desiree Patrick MD [address] [place] [address] PCP - General Electrophysiology 02/23/22 03/09/22 Desiree Patrick MD [address] [place] [place] [address] 08/09/17 Farrah Nicole APRN,MANAGER LIFE [address] [place] [address] 08/09/17 Bry Echevarria MD [address] [place] [address] [place] [address] 08/09/17 Casey Berry II, DO 08/09/17 Shruti Vergara RN RN Registered Nurse 08/27/20 documented as of this encounter Additional Source Comments PLEASE NOTE: Replies to this message will not be received.[facility] and [facility]
--- OUTSIDE RECORDS SUMMARY | 2024-03-16 16:22 | XMS_ITS | Encounter Summary ---
Author Organization [employer] Address [address] [place] [address] Care Team Providers Care Senior Abap Developer Name Role Phone Jamal CARLISLE DO, Robert William Primary Care Provide r Unavailable Desiree Patrick MD Unavailable Farrah Nicole APRN,BATT MACHINE OPERATOR Unavailable Bry Echevarria MD Unavailable Jamal CARLISLE DO, Robert William Unavailable Unav Stephani Diaz MD Primary Care Provider [phone] Shruti Vergara RN Unavailable Unavailable Bianka Loera CNP Primary Care Provider [phone] Desiree Patrick MD Primary Care P rovider Encounter Details Date Type Department Care Team (Late st Contact Info) Description 11/07/2015 Historical Conversion [facility] Family Medicine [address] [place] [phone] Moon Maloney MD Social History Tobacco Use [...] Body Mass Index 26.65 08/28/2015 12:00 AM SUBSEA ENGINEER documented in this encounter Progress Notes * Moon Maloney MD - 11/06/2016 12:00 AM CDT UROLOGY [facility] CRISTIAN BLEDSOE : 1945 HX: [id number] DOS: 11/06/2016 SUBJECTIVE: Cristian and his are here to discuss the results of the recent prostate biopsy. We ended up taking Anurag off his Coumadin and doing a prostate biopsy because of a positive DIESEL DRAGLINE OPERATOR-3 test and an elevated PSA, so [...] two cores on the left base. Adenocarcinoma Savona 7 less than 5% one of two cores on the left mid, and benign prostatic hypertrophy in the left apex. On the right base there was some ARPIT. The right mid showed prostate adenocarcinoma, Curt 3+4 involving 20% two of two cores were positive. At the right apex, a Savona 3+4 or 7, involving 5% one of [...] be comfortable watching him. However, with the Savona 7, I know that they are watching [...] prostatectomy. Moon Maloney M.D./la-1 cc: Jose Winslow M.D./[facility] cc: Casey Berry II, D.O./[facility] Electronically signed by:Moon Maloney M.D. Nov 09 2016 1:49PM SUBSEA ENGINEER * Moon Maloney MD - 10/23/2016 12:00 AM CDT UROLOGY [facility] CRISTIAN BLEDSOE : 1945 HX: [id number] DOS: 10/23/2016 SUBJECTIVE: Cristian is here for a prostate biopsy. I saw Cristian in August. PSA has started to go up.He had a little bit of an elevated PSA and elevated PSA velocity. We did a DIESEL DRAGLINE OPERATOR-3 test. It did just come back [...] negative. IMPRESSION: 1. Elevated PSA and positive DIESEL DRAGLINE OPERATOR-3 test. PLAN: I told Anurag to [...] Moon Maloney M.D./la-17 cc: Casey Berry II, D.OWilliam/[facility] Electronically signed by:Moon Maloney M.D. Oct 26 2016 12:13PM SUBSEA ENGINEER * Moon Maloney MD - 08/27/2016 12:00 AM CST UROLOGY CRISTIAN BLEDSOE : 1945 HX: [id number] DOS: 08/27/2016 SUBJECTIVE: Cristian comes to see [...] because we are going to do a DIESEL DRAGLINE OPERATOR-3 test. LABORATORY DATA: AUA symptom score is 1. He has absolutely no trouble urinating. PSA is 5.4. IMPRESSION: 1. Elevated PSA velocity. PLAN: We are going to go ahead and get a DIESEL DRAGLINE OPERATOR-3 test because his velocity is really [...] going to go ahead and get a DIESEL DRAGLINE OPERATOR-3 test today. Obviously if that is [...] course risks of bleeding. However, if the DIESEL DRAGLINE OPERATOR-3 is negative, then I would just see him in six months for a PSA. Total time spent with the patient was 25 minutes with greater than 50% in counseling. Moon Maloney M.D./la-21 cc: Casey Berry II, D.OWilliam/[facility] Electronically signed by:Moon Maloney M.D. Sep 18 2016 1:34PM SUBSEA ENGINEER * Moon Maloney MD - 02/11/2016 12:00 AM CDT UROLOGY [facility]RISTIAN BLEDSOE : 1945 HX: [id number] DOS: 02/11/2016 SUBJECTIVE: Cristian comes to see [...] Moon Maloney M.D./la-2 cc: Casey Berry, II, D.O./[facility] Electronically signed by:Moon Maloney M.D. Feb 24 2016 9:43AM SUBSEA ENGINEER * Moon Maloney MD - 11/07/2015 12:00 AM CDT UROLOGY CRISTIAN BLEDSOE : 1945 HX: [id number] DOS: 11/07/2015 REFERRING PROVIDER: Dr. Berry. HISTORY [...] He is a former smoker, retired from [employer], he is . FAMILY HISTORY: Negative for [...] Moon Maloney M.D./la-29 cc: Casey Berry II, D.O./[facility] Electronically signed by:Moon Maloney M.D. Nov 25 2015 10:34AM SUBSEA ENGINEER documented in this encounter Plan of Treatment Not on file documented as of this encounter Visit Diagnoses Not on filedocumented in this encounter Care Teams Senior Abap Developer Relationship Specialty Start Date End Date Casey Berry II, DO PCP - General 11/22/06 08/17/19 Stephani Aleman MD PCP - General Family Medicine 08/18/19 09/16/20 Bianka Loera CNP [address] [facility] [address] [place] [address] PCP - General Nurse Practitioner Family 09/17/2001/10 [place] [address] [place] [address] PCP - General Electrophysiology 02/23/22 03/09/22 Desiree Patrick MD [address] [facility] [place] [address] 08/09/17 Farrah Nicole APRN,BATT MACHINE OPERATOR [address] [facility] [place] [address] 08/09/17 Bry Echevarria MD [address] [place] [address] [facility] [place] [address] 08/09/17 Casey Berry II, DO 08/09/17 Shruti Vergara RN RN Registered Nurse 08/27/20 documented as of this encounter Additional Source Comments PLEASE NOTE: Replies to this message will not be received.[facility] and [facility]
--- OUTSIDE RECORDS SUMMARY | 2024-03-16 16:22 | XMS_ITS | Encounter Summary ---
Author Organization [email or web address] Address [address] [place] [address] Care Team Providers Care Natural Remedy Consultant Name Role Phone Jamal CARLISLE DO, Robert William Primary Care Provide r Unavailable Desiree Patrick MD Unavailable Farrah Nicole APRN,MANAGER BEHAVIORAL Unavailable Bry Echevarria MD Unavailable [phone] Jamal CARLISLE DO, Robert William Unavailable Unav Stephani Diaz MD Primary Care Provider Shruti Vergara RN Unavailable Unavailable Bianka Loera CNP Primary Care Provider Desiree Patrick MD Primary Care P rovider Encounter Details Date Type Department Care Team (Late st Contact Info) Description 08/28/2015 Historical Conversion [facility] Family Medicine [address] [place] [phone] Casey Berry II, DO Social History Tobacco Use Types Packs/Day Years Used Date Smoking Tobacco: Never Assessed Sex and Gender Information Value Date Recorded Sex Assigned at Not on file Gender Identity Not on file Sexual Orientation Not on file documented as of this encounter Last Filed Vital Signs Vital Sign Reading Time Taken Comments Blood Pressure 134/90 08/28/2015 12:00 AM WEATHER REPORTER Pulse - - Temperature - - Respiratory Rate - - Oxygen Saturation - - Inhaled Oxygen Concentration - - Weight 90.2 kg (198 lb 13.7 oz) 016 12:00 AM WEATHER REPORTER Height 186 cm (6' 1.23) 08/28/2015 12: 00 AM WEATHER REPORTER Body Mass Index 26.07 08/28/2015 12:00 AM WEATHER REPORTER documented in this encounter Progress Notes * [...] healthy by no longer smoking.; Status:Complete; Done: 23Qww6076 Reason For Visit Go over CT results. [...] 1 TABLET BY MOUTH ONCE DAILY; Therapy: 21Exu0803 to (Evaluate:27Jrm5206) Requested for: 93Sax5092; Last Rx:60Nwq7244 Ordered 2. Metoclopramide HCl - 5 MG Oral Tablet; TAKE 1 TABLET BY MOUTH THREE TIMES DAILY WITH MEALS; Therapy: 10Sep2014 to (Evaluate:38Dcg8465) Requested for: 99Xsj9240; Last Rx:29Blo9117 Ordered 3. Metoprolol Tartrate 25 MG Oral Tablet; 1/2 to 1 prn a fib Requested for: 24Jwp0645; Last Rx:63Iey4543 Ordered 4. Tylenol Extra Strength 500 MG Oral Tablet; Therapy: (Recorded:42Tao3386) to Recorded 5. Warfarin Sodium 5 MG Oral Tablet; Take as directed by ACC; Therapy: 36Ohp3750 to (Evaluate:15May2017) Requested for: 20May2016 Recorded Allergies 1. Penicillins 2. Sulfa Drugs Vitals Recorded: 75Zxe7651 10:00AM Systolic 115, RUE, Sitting Diastolic 76, RUE, Sitting Heart Rate 65 Respiration 16 Temperature 97.6 F, Forehead Weight 91.5 kg BMI Calculated 26.45 BSA Calculated 2.16 2+ Falls or 1 Fall with injury in last year? No O2 Saturation 96 Signatures Casey Berry II, D.OWilliam/pj-29 Electronically signed by : Casey Berry DO; Jul 09 2016 1:56PM WEATHER REPORTER * Casey Berry II, DO - 03/10/2016 [...] use sparingly qid; Therapy: 18Nov2015 to (Last Rx:34Exl8085) Requested for: 01Uwl1161 Ordered 2. Lisinopril 10 MG Oral Tablet; TAKE 1 TABLET BY MOUTH ONCE DAILY; Therapy: 99Hba0408 to (Evaluate:40Bpr7795) Requested for: 68Ass8287; Last Rx:21Sya4203 Ordered 3. Metoclopramide HCl - 5 MG Oral Tablet; TAKE 1 TABLET BY MOUTH THREE TIMES DAILY WITH MEALS; Therapy: 10Sep2014 to (Evaluate:25Rbv1287) Requested for: 48Zgs5382; Last Rx:83Txj3603 Ordered 4. Tylenol Extra Strength 500 MG Oral Tablet; Therapy: (Recorded:61Qva2992) to Recorded 5. Warfarin Sodium 5 MG Oral Tablet; Take as directed by ACC; Therapy: 11Mdr4656 to (Evaluate:47Pfv4112) Requested for: 19Feb2016; Last Rx:19Feb2016 Ordered Allergies [...] Vital Signs [Data Includes: Current Encounter] Recorded: 63Nvy5364 10:06AM Blood Pressure 124 / 71 Heart [...] Casey Berry DO; Apr 02 2016 8:50AM WEATHER REPORTER * Casey Berry II, DO - 01/28/2016 [...] use sparingly qid; Therapy: 18Nov2015 to (Last Rx:93Sxj2009) Requested for: 46Ihs7990 Ordered 2. Lisinopril 10 MG Oral Tablet; TAKE 1 TABLET BY MOUTH ONCE DAILY; Therapy: 51Zda9651 to (Evaluate:92Ufi5269) Requested for: 90Nqr5314; Last Rx:10Gdg9814 Ordered 3. Metoclopramide HCl - 5 MG Oral Tablet; TAKE 1 TABLET BY MOUTH THREE TIMES DAILY WITH MEALS; Therapy: 10Sep2014 to (Evaluate:76Xif5656) Requested for: 64Uqk9112; Last Rx:73Mih9284 Ordered 4. Tylenol Extra Strength 500 MG Oral Tablet; Therapy: (Recorded:18Nov2015) to Recorded 5. Xarelto 15 MG Oral Tablet; TAKE 1 TABLET DAILY Requested for: 08Jan2016; Last Rx:08Jan2016 Ordered Allergies 1. Penicillins 2. Sulfa Drugs Social History 1. Former smoker: 0 - 10 pack years (V15.82) (Z87.891) Vitals Vital Signs [Data Includes: Current Encounter] Recorded: 16Ihx3730 10:31AM Blood Pressure 139 / 83 Heart [...] Casey Berry DO; Feb 11 2016 7:47AM WEATHER REPORTER * Casey Berry II, DO - 12/11/2015 12:00 AM CDT Chief Complaint/Reason for Visit f/up ct History of Present Illness This is a 70-year-old male who recently underwent a stress test. The stress test showed no major abnormality, however, it was suggested of an aneurysm. 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 [place] that the CT scan would be a [...] 1 TABLET BY MOUTH ONCE DAILY; Therapy: 47Znb9972 to (Evaluate:14Szx3942) Requested for: 19Jdm0362; Last Rx:99Sar6848 Ordered 3. Metoclopramide HCl - 5 MG Oral Tablet; TAKE 1 TABLET BY MOUTH THREE TIMES DAILY WITH MEALS; Therapy: 10Sep2014 to (Evaluate:33Ikf6798) Requested for: 03Dec2015; Last Rx:55Bvu7858 Ordered 4. Tylenol Extra Strength 500 MG [...] Casey Berry DO; Dec 30 2015 8:19AM WEATHER REPORTER * Casey Berry II, DO - 11/18/2015 12:00 AM CDT Chief Complaint/Reason for Visit ER follow up History of Present Illness This is a 69-year-old male who has a long history of paroxysmal tachycardia. He recently had an episode of paroxysmal tachycardia. He went in to the ER in [place] and found that he had a flutter [...] INHALE ONE SPRAY TWICE DAILY PRN; Therapy: 29Ljh9326 to Requested for: 03Jan2014 Recorded 2. Lisinopril 10 MG Oral Tablet; TAKE 1 TABLET BY MOUTH ONCE DAILY; Therapy: 91Lhz0158 to (Evaluate:42Hqz8193) Requested for: 37Iog6192; Last Rx:92Uyh2554 Ordered 3. Metoclopramide HCl - 5 MG Oral Tablet; TAKE 1 TABLET BY MOUTH THRE E TIMES DAILY WITH MEALS; Therapy: 10Sep2014 to (Evaluate:07Ahl4383) Requested for: 00Awe9498; Last Rx:92Nza4271 Ordered 4. Metoprolol Tartrate 25 MG Oral [...] Casey Berry DO; Nov 26 2015 8:06AM WEATHER REPORTER documented in this encounter H&P Notes * [...] INHALE ONE SPRAY TWICE DAILY PRN; Therapy: 79Zwp8846 to Requested for: 03Jan2014 Recorded 3. Lisinopril 10 MG Oral Tablet; TAKE 1 TABLET BY MOUTH ONCE DAILY; Therapy: 20Lxs2980 to (Evaluate:23Sgm6063) Requested for: 43Qvw1816; Last Rx:93Lkh5645 Ordered 4. Metoclopramide HCl - 5 MG Oral Tablet; TAKE 1 TABLET BY MOUTH THRE E TIMES DAILY WITH MEALS; Therapy: 10Sep2014 to (Evaluate:12Ylr5730) Requested for: 17Pda2385; Last Rx:61Ptd1224 Ordered 5. Vitamin D3 1000 UNIT Oral [...] healthy by no longer smoking.; Status:Complete; Done: 58Fpl4364 1.Prevnar shot. 2.CBC, vitamin D, PSA, comp, and lipid. 3.Did discuss with patient about his foot. Signatures Casey Berry II, D.OWilliam/jaj-08 Electronically signed by : Casey Berry DO; Sep 19 2015 8:13AM WEATHER REPORTER documented in this encounter Procedure Notes * Casey Berry II, DO - 11/26/2015 12:00 AM CDTAssociated Order(s): NUCLEAR MEDICINE NUCLEAR MEDICINE CRISTIAN BLEDSOE : 1945 HX: [id number] DOS: 11/26/2015 Lexiscan portion of Lexiscan Cardiolite. [...] by:Casey Berry DO Dec 03 2015 7:45AM WEATHER REPORTER documented in this encounter Miscellaneous Notes * [...] DO [facility] Electronically signed by:DEYANIRA FRANCOIS Sep 09 2015 11:25AM WEATHER REPORTER documented in this encounter Plan of Treatment Not on file documented as of this encounter Procedures Procedure Name Priority Date/Time Associated Diagnosis Comments NUCLEAR MEDICINE 11/26/2015 documented in this encounter Results * NUCLEAR MEDICINE (11/26/2015) Anatomical Region Laterality Modality Other Narrative Procedure Note Casey Berry II, DO - 11/26/2015 12:00 AM CDT NUCLEAR MEDICINE CRISTIAN BLEDSOE : 1945 HX: [id number] DOS: 11/26/2015 Lexiscan portion of Lexiscan Cardiolite. BASELINE EKG: Shows no abnormality of note. PROTOCOL: Patient was given Lexiscan and Cardiolite. He had no majorcomplaints. EKG CHANGES NOTED DURING TEST: EKG showed no changes. IMPRESSION: 1. Normal Lexiscan portion of Lexiscan Cardiolite. RECOMMENDATIONS: We will await radiologic portion of test. Casey Berry II, D.O./jaj-23 Electronically signed by:Casey Berry DO Dec 03 2015 7:45AM WEATHER REPORTER Casey Berry II, DO RAD NUCLEAR M EDICINE documented in this encounter Visit Diagnoses Not on filedocumented in this encounter Care Teams Natural Remedy Consultant Relationship Specialty Start Date End Date Casey Berry II, DO PCP - General 11/22/06 08/17/19 Stephani Aleman MD PCP - General Family Medicine 08/18/19 09/16/20 Bianka Loera WILDLIFE OFFICER [address] [facility] [address] [place] [address] PCP - General Nurse Practitioner Family 09/17/20 712/31 Desiree Patrick MD [address] [place] [address] PCP - General Electrophysiology 02/23/22 03/09/22 [place] [address] [place] [address] 08/09/17 Farrah Nicole APRN,ALEX [address] [place] [address] 08/09/17 Bry Echevarria MD [address] [place] [address] 08/09/17 Casey Berry II, DO 08/09/17 Shruti Vergara RN RN Registered Nurse 08/27/20 documented as of this encounter Additional Source Comments PLEASE NOTE: Replies to this message will not be received.[facility] and [facility]
--- OUTSIDE RECORDS SUMMARY | 2024-03-16 16:22 | XMS_ITS | Encounter Summary ---
Author Organization [employer] Address [address] [place] [address] Care Team Providers Care Margin Analyst Name Role Phone Jamal CARLISLE DO, Robert William Primary Care Provide r Unavailable Desiree Patrick MD Unavailable Farrah Nicole APRN,SALES DEMONSTRATOR Unavailable Bry Echevarria MD Unavailable Jamal CARLISLE DO, Robert William Unavailable Unav Stephani Diaz MD Primary Care Provider [phone] Shruti Vergara RN Unavailable Unavailable Bianka Loera CNP Primary Care Provider [phone] Desiree Patrick MD Primary Care P rovider Encounter Details Date Type Department Care Team (Late st Contact Info) Description 08/22/2014 Historical Conversion [facility] Family Medicine [address] [place] [phone] Casey Berry II, DO Social History Tobacco [...] AND PHYSICAL CRISTIAN BLEDSOE : 1945 HX: [id number] DOS: 08/22/2014 CHIEF COMPLAINT: Routine physical. HISTORY [...] alcohol. 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 ALLERGIES: PENICILLIN AND SULFA. HEALTH CARE MAINTENANCE: [...] by:Casey Berry D.O. Sep 06 2014 7:40AM UNIT ASSEMBLER documented in this encounter Plan of Treatment Not on file documented as of this encounter Visit Diagnoses Not on filedocumented in this encounter Care Teams Margin Analyst Relationship Specialty Start Date End Date Casey Berry II, DO PCP - General 11/22/06 08/17/19 Stephani Aleman MD PCP - General Family Medicine 08/18/19 09/16/20 Bianka Loera CNP [address] [place] [address] PCP - General Nurse Practitioner Family 09/17/2001/10 Desiree Patrick MD [address] [place] [facility] [address] PCP - General Electrophysiology 02/23/22 03/09/22 Desiree Patrick MD [address] [place] [place] [address] 08/09/17 Farrah Nicole, BED OPERATOR,SALES DEMONSTRATOR [address] [place] [place] [facility] [address] 08/09/17 Bry Echevarria MD [facility] [place] [address] 08/09/17 Casey Berry II, DO 08/09/17 Shruti Vergara RN RN Registered Nurse 08/27/20 documented as of this encounter Additional Source Comments PLEASE NOTE: Replies to this message will not be received.[facility] and [facility]
--- OUTSIDE RECORDS SUMMARY | 2024-03-16 16:22 | XMS_ITS | Encounter Summary ---
Author Organization [facility] [employer] [facility] Address [address] [place] [address] Care Team Providers Care Founding Partner Name Role Phone Jamal CARLISLE DO, Robert William Primary Care Provide r Unavailable Desiree Patrick MD Unavailable Farrah Nicole APRN, CNS Unavailable Bry Echevarria MD Unavailable Jamal CARLISLE DO, Robert William Unavailable Unav Stephani Diaz MD Primary Care Provider [phone] Shruti Vergara RN Unavailable Unavailable Bianka Loera CNP Primary Care Provider Desiree Patrick MD Primary Care P rovider Encounter Details Date Type Department Care Team (Late st Contact Info) Description 11/15/2006 Clinic Encounter [facility] Dermatology [address] [place] [address] Ganga Anderson MD Social History [...] Rohan Carroll : 1945 E: Ganga Anderson MD/[facility] DERMATOLOGY OFFICE VISIT CHART: [id number] P Date of Service: 2006 Doc #: [id number] P Attending Physician: None available SUBJECTIVE: This [...] 1 cc was used locally. Using a Naper blade, the skin biopsy was then performed. [...] we will set up treatment as indicated. [facility] documented in this encounter Plan of Treatment Not on file documented as of this encounter Visit Diagnoses Not on filedocumented in this encounter Care Teams Founding Partner Relationship Specialty Start Date End Date Casey Berry II, DO PCP - General 11/22/06 08/17/19 Stephani Aleman MD PCP - General Family Medicine 08/18/19 09/16/20 Bianka Loera CNP [address] [place] [address] [address] [place] [address] PCP - General Nurse Practitioner Family 09/17/20 7/2 12/31 Desiree Patrick MD [address] [place] [address] PCP - General Electrophysiology 02/23/22 03/09/22 Desiree Patrick MD [address] [facility] [place] [address] 08/09/17 Farrah Nicole APRN,HAND FILER BALANCE WHEEL [address] [place] [address] 08/09/17 Bry Echevarria MD [address] [place] [address] 08/09/17 Casey Berry II, DO 08/09/17 Shruti Vergara RN RN Registered Nurse 08/27/20 documented as of this encounter Additional Source Comments PLEASE NOTE: Replies to this message will not be received.[facility] and [facility]
--- OUTSIDE RECORDS SUMMARY | 2024-03-16 16:22 | XMS_ITS | Encounter Summary ---
Author Organization [employer] Address [address] [place] [address] Care Team Providers Care Second Shift Supervisor Name Role Phone Jamal CARLISLE DO, Robert William Primary Care Provide r Unavailable Desiree Patrick MD Unavailable Farrah Nicole APRN,MOTOR VEHICLE CLERK Unavailable [phone] Bry Echevarria MD Unavailable [phone] Jamal CARLISLE DO, Robert William Unavailable Unav Stephani Diaz MD Primary Care Provider Shruti Vergara RN Unavailable Unavailable Bianka Loera CNP Primary Care Provider Desiree Patrick MD Primary Care P rovider Encounter Details Date Type Department Care Team (Late st Contact Info) Description 12/11/2015 Historical Conversion [facility] Family Medicine [address] [place] [address] Casey Berry II, DO Social History Tobacco [...] on filedocumented in this encounter Care Teams Second Shift Supervisor Relationship Specialty Start Date End Date Casey Berry II, DO PCP - General 11/22/06 08/17/19 Stephani Aleman MD PCP - General Family Medicine 08/18/19 09/16/20 Bianka Loera CNP [address] [place] [phone] PCP - General Nurse Practitioner Family 09/17/2001/10 [place] [address] [place] [address] PCP - General Electrophysiology 02/23/22 03/09/22 Desiree Patrick MD [address] [place] [address] 08/09/17 Farrah Nicole APRN,[facility] [address] [place] [address] 08/09/17 Bry Echevarria MD [address] [place] [address] [place] [address] 08/09/17 Casey Berry II, DO 08/09/17 Shruti Vergara RN RN Registered Nurse 08/27/20 documented as of this encounter Additional Source Comments PLEASE NOTE: Replies to this message will not be received.[facility] and [facility]
--- OUTSIDE RECORDS SUMMARY | 2024-03-16 16:22 | XMS_ITS | Encounter Summary ---
Author Organization [employer] Address [address] [place] [address] Care Team Providers Care Helper Maintenance Cleaning Name Role Phone Jamal CARLISLE DO, Robert William Primary Care Provide r Unavailable Desiree Patrick MD Unavailable Farrah Nicole APRN,MANAGER LAUNDRY Unavailable Bry Echevarria MD Unavailable Jamal CARLISLE DO, Robert William Unavailable Unav Stephani Diaz MD Primary Care Provider Shruti Vergara RN Unavailable Unavailable Bianka Loera CNP Primary Care Provider Desiree Patrick MD Primary Care P rovider Encounter Details Date Type Department Care Team (Late st Contact Info) Description 01/28/2016 Historical Conversion [facility] Family Medicine [address] [place] [id number] Social History Tobacco Use Types Packs/Day Years [...] as of this encounter Procedure Notes * [facility], GENERICPROVIDER - 01/28/2016 12:00 AM [...] daily, Reglan 5 mg TID PRN, and [id number] mg BID for pain in right knee. [...] by:Razia Duarte RN Jan 28 2016 12:46PM RETURNS PROCESSOR documented in this encounter Plan of Treatment Not on file documented as of this encounter Procedures Procedure Name Priority Date/Time Associated Diagnosis Comments ANTICOAGULATION 01/28/2016 documented in this encounter Results * ANTICOAGULATION (01/28/2016) Narrative Procedure Note [facility], GENERICPROVIDER - 01/28/2016 12:00 AM CDT Name: RCISTIAN WILKINSN: [id number] : 1945 DOS: 01/28/2016 Cristian ia a [...] and approximately 200 lbs. [facility] bleeding or stroke. He [...] summer as he is apart of a [employer]. Drinks green tea onoccasion; encouraged to avoid [...] by:Razia Duarte RN Jan 28 2016 12:46PM RETURNS PROCESSOR Genericprovider [facility] OTHER documented in this encounter Visit Diagnoses Not on filedocumented in this encounter Care Teams Helper Maintenance Cleaning Relationship Specialty Start Date End Date Casey Berry II, DO PCP - General 11/22/06 08/17/19 Stephani Aleman MD PCP - General Family Medicine 08/18/19 09/16/20 Bianka Loera POWER PLANT MANAGER [address] [place] [phone] PCP - General Nurse Practitioner Family 09/17/2001/10 Desiree Patrick MD [address] [place] [address] PCP - General Electrophysiology 02/23/22 03/09/22 Desiree Patrick MD [address] [place] [address] 08/09/17 Farrah Nicole APRN,MANAGER LAUNDRY [address] [place] [address] 08/09/17 Bry Echevarria MD [address] [place] [address] 08/09/17 Casey Berry II, DO 08/09/17 Shruti Vergara RN RN Registered Nurse 08/27/20 documented as of this encounter Additional Source Comments PLEASE NOTE: Replies to this message will not be received.[facility] and [facility]
--- OUTSIDE RECORDS SUMMARY | 2024-03-16 16:22 | XMS_ITS | Encounter Summary ---
Author Organization [employer] Address [address] [place] [address] Care Team Providers Care Twister Hand Name Role Phone Jamal CARLISLE DO, Robert William Primary Care Provide r Unavailable Desiree Patrick MD Unavailable Farrah Nicole APRN,WATER VALVE MECHANIC Unavailable Bry Echevarria MD Unavailable Jamal CARLISLE DO, Robert William Unavailable Unav Stephani Diaz MD Primary Care Provider [phone] Shruti Vergara RN Unavailable Unavailable Bianka Loera CNP Primary Care Provider Desiree Patrick MD Primary Care P rovider Encounter Details Date Type Department Care Team (Late st Contact Info) Description 08/22/2014 Historical Conversion [facility] Family Medicine [address] [place] [address] Casey Berry II, DO Social History Tobacco Use Types Packs/Day Years Used Date Smoking Tobacco: Never Assessed Sex and Gender Information Value Date Recorded Sex Assigned at Not on file Gender Identity Not on file Sexual Orientation Not on file documented as of this encounter Last Filed Vital Signs Vital Sign Reading Time Taken Comments Blood Pressure 145/88 08/22/2014 12:00 AM FILLING WINDER Pulse - - Temperature - - Respiratory Rate - - Oxygen Saturation - - Inhaled Oxygen Concentration - - Weight 90.7 kg (200 lb) 08/22/2014 12:00 AM FILLING WINDER Height 185.4 cm (6' 1) 08/22/2014 12:00 AM FILLING WINDER Body Mass Index 26.39 08/22/2014 12:00 AM FILLING WINDER documented in this encounter Plan of Treatment Not on file documented as of this encounter Visit Diagnoses Not on filedocumented in this encounter Care Teams Twister Hand Relationship Specialty Start Date End Date Casey Berry II, DO PCP - General 11/22/06 08/17/19 Stephani Aleman MD PCP - General Family Medicine 08/18/19 09/16/20 Bianka Loera CNP [address] [place] [address] [address] [place] [address] PCP - General Nurse Practitioner Family 09/17/2001/10 Desiree Patrick MD [address] [place] [address] PCP - General Electrophysiology 02/23/22 03/09/22 Desiree Patrick MD [address] [place] [address] 08/09/17 Farrah Nicole, COMPUTER LAB PARA PROFESSIONAL,WATER VALVE MECHANIC [address] [place] [address] 08/09/17 Bry Echevarria MD [address] [place] [address] [facility] [phone] 08/09/17 Casey Berry II, DO 08/09/17 Srhuti Vergara RN RN Registered Nurse 08/27/20 documented as of this encounter Additional Source Comments PLEASE NOTE: Replies to this message will not be received.[facility] and [facility]
--- OUTSIDE RECORDS SUMMARY | 2024-03-16 16:22 | XMS_ITS | Encounter Summary ---
Author Organization [facility] Address [address] [place] [address] Care Team Providers Care Workshop Manager Name Role Phone Unavailable Primary Care Provider Unavailabl e Reason for Referral * MRI/CAT/PET Scan (Routine) - Closed Specialty Diagnoses / Procedures Referred By Malinda wan Referred To Contact Radiology Diagnoses Parkinsonism Unspecified (HCC) Procedures MR Brain without and with IV Contrast Vic Mae M.D. [address] [address] [facility] Region Referral ID Status Reason Start Date Expiration Date Visits Re quested Visits Authorized [id number] Closed 02/23/2024 02/22/2025 1 1 Reason for Visit * MRI/CAT/PET Scan (Routine) - Closed Specialty Diagnoses / Procedures Referred By Malinda wan Referred To Contact Radiology Diagnoses Parkinsonism Unspecified (HCC) Procedures MR Brain without and with IV Contrast Vic Mae M.D. [address] [address] [facility] Region Referral ID Status Reason Start Date Expiration Date Visits Re quested Visits Authorized [id number] Closed 02/23/2024 02/22/2025 1 1 Encounter Details Date Type Department Care Team (Latest Contact Info) Description 02/24/2024 1:38 PM CDT - 02/24/2024 11:59 PM CDT Hospital Encounter Department of Radiology in [place], [place] [address] [place] [address] Vic Mae M.D. [address] [place] [address] Parkinsonism Unspecified (HCC) Discharge Disposition: [...] DAILY. 11/17/2021 documented as of this encounter Miscellaneous Notes * Result Encounter Note - Vic Mae M.D. - 03/15/2024 3:49 PM CDT MRI of the brain with fairly substantial changes the small-vessel ischemic disease but also changesin nigra zone 1 suggestive of Parkinson's disease. documented in this encounter Plan of Treatment [...]
--- OUTSIDE RECORDS SUMMARY | 2024-03-16 16:22 | XMS_ITS | Encounter Summary ---
Author Organization [employer] Address [address] [place] [address] Care Team Providers Care Quality Assurance Group Leader Name Role Phone Jamal CARLISLE DO, Robert William Primary Care Provide r Unavailable Desiree Patrick MD Unavailable Farrah Nicole APRN,TOWN JUSTICE Unavailable Bry Echevarria MD Unavailable [phone] Jamal CARLISLE DO, Robert William Unavailable Unav Stephani Diaz MD Primary Care Provider Shruti Vergara RN Unavailable Unavailable Bianka Loera CNP Primary Care Provider Desiree Patrick MD Primary Care P rovider Encounter Details Date Type Department Care Team (Late st Contact Info) Description 01/03/2014 Historical Conversion [facility] Family Medicine [address] [place] [phone] Errol Berry II, DO Social History Tobacco [...] AM CDT CRISTIAN BLEDSOE : 1945 HX: [id number] DOS: 01/03/2014 CHIEF COMPLAINT: Back pain. HISTORY [...] by:ERROL BERRY D.O. Jan 17 2014 7:34AM MOVING PICTURE PRODUCER documented in this encounter Plan of Treatment Not on file documented as of this encounter Visit Diagnoses Not on filedocumented in this encounter Care Teams Quality Assurance Group Leader Relationship Specialty Start Date End Date Errol Berry II, DO PCP - General 11/22/06 08/17/19 Stephani Aleman MD PCP - General Family Medicine 08/18/19 09/16/20 Bianka Loera STONER OUT [address] [place] [address] PCP - General Nurse Practitioner Family 09/17/20 7/12/31 Desiree Patrick MD [address] [place] [address] PCP - General Electrophysiology 02/23/22 03/09/22 Desiree Patrick MD [address] [place] [address] 08/09/17 Farrah Nicole APRN,TOWN JUSTICE [address] [place] [address] 08/09/17 Bry Echevarria MD [facility] [place] [address] 08/09/17 Errol Berry II, DO 08/09/17 Shruti Vergara RN RN Registered Nurse 08/27/20 documented as of this encounter Additional Source Comments PLEASE NOTE: Replies to this message will not be received.[facility] and [facility]
--- OUTSIDE RECORDS SUMMARY | 2024-03-16 16:22 | XMS_ITS | Encounter Summary ---
Author Organization [facility] Address [address] [place] [address] Care Team Providers Care Market Developer Name Role Phone Jamal CARLISLE DO, Robert William Primary Care Provide r Unavailable Desiree Patrick MD Unavailable Farrah Nicole APRN,POWER CHISEL OPERATOR Unavailable Bry Echevarria MD Unavailable Jamal CARLISLE DO, Robert William Unavailable Unav Stephani Diaz MD Primary Care Provider Shruti Vergara RN Unavailable Unavailable Bianka Loera CNP Primary Care Provider Desiree Patrick MD Primary Care P rovider Encounter Details Date Type Department Care Team (Late st Contact Info) Description 11/26/2015 HIM Instructor Of Nursing [facility] [address] [address] Rajeev Barlow MD Social History [...] Order(s): MYOCARDIAL PERFUSION PHARMACOLOGIC STRESS PERFORMED BY: [facility] [place] [employer] [facility], [place] SITE: [facility] [place] INTERPRETED BY: [facility], [place] PHARMACOLOGIC MYOCARDIAL PERFUSION SCAN Study supervised [...] TYPE: Rest/stress, single isotope gated SPECT imaging. [id number]: 12.5 mCi (IV) for the rest injection. [id number]: 33.1 mCi (IV) for the stress injection. [...] function. Note: This study was performed by [employer]. Only the interpretation was performed at the [facility] [place]. Electronically signed Rajeev Barlow MD, [facility] Metal Sash Setter , 03:10 P A dsc/Doc#: [id number] cc: documented in this encounter Plan of Treatment Not on file documented as of this encounter Procedures Procedure Name Priority Date/Time Associated Diagnosis Comments MYOCARDIAL PERFUSION PHARMACOLOGIC STRESS 11/26/2015 documented in this encounter Results * MYOCARDIAL PERFUSION PHARMACOLOGIC STRESS (11/26/2015) Anatomical Region Laterality Modality Other 11/26/2015 Narrative Procedure Note Rajeev Barlow MD - 11/26/2015 12:00 AM CDT PERFORMED BY: [facility], [place] SITE: [facility] [place] INTERPRETED BY: [facility], [place] PHARMACOLOGIC MYOCARDIAL PERFUSION SCAN Study supervised [...] TYPE: Rest/stress, single isotope gated SPECT imaging. [id number]: 12.5 mCi (IV) for the rest injection. [id number]: 33.1 mCi (IV) for the stress injection. [...] function. Note: This study was performed by [employer]. Only theinterpretation was performed at the [facility]. Electronically signed Rajeev Barlow MD, [facility] Metal Sash Setter , 03:10 P A dsc/Doc#: [id number] cc: Rajeev Barlow MD [facility] MED/STRESS documented in this encounter Visit Diagnoses Not on filedocumented in this encounter Care Teams Market Developer Relationship Specialty Start Date End Date Casey Berry II, DO PCP - General 11/22/06 08/17/19 Stephani Aleman MD PCP - General Family Medicine 08/18/19 09/16/20 Bianka Loera CNP [address] [place] [address] PCP - General Nurse Practitioner Family 09/17/2001/10 Desiree Patrick MD [address] [place] [address] PCP - General Electrophysiology 02/23/22 03/09/22 Desiree Patrick MD [address] [facility] [place] [address] 08/09/17 Farrah Nicole APRN,POWER CHISEL OPERATOR [address] [place] [address] 08/09/17 Bry Echevarria MD [address] [place] [address] 08/09/17 Casey Berry II, DO 08/09/17 Shruti Vergara RN RN Registered Nurse 08/27/20 documented as of this encounter Additional Source Comments PLEASE NOTE: Replies to this message will not be received.[facility] and [facility]
--- OUTSIDE RECORDS SUMMARY | 2024-03-16 16:22 | XMS_ITS | Encounter Summary ---
Author Organization [employer] Address [address] [place] [address] Care Team Providers Care Engraving Press Operator Name Role Phone Jamal CARLISLE DO, Robert William Primary Care Provide r Unavailable Desiree Patrick MD Unavailable Farrah Nicole APRN,MANAGER MARKET Unavailable Bry Echevarria MD Unavailable Jamal CARLISLE DO, Robert William Unavailable Unav Stephani Diaz MD Primary Care Provider Shruti Vergara RN Unavailable Unavailable Bianka Loera CNP Primary Care Provider Desiree Patrick MD Primary Care P rovider Encounter Details Date Type Department Care Team (Late st Contact Info) Description 01/31/2016 Historical Conversion [facility] Family Medicine [address] [place] [id number] Social History Tobacco Use Types Packs/Day Years [...] as of this encounter Procedure Notes * [facility] 01/14/2017 12:00 AM CDTAssociated Order(s): ANTICOAGULATION [facility] Name: CRISTIAN BLEDSOE : 1945 DOS: [...] by:Tiffani Carrero RN Jan 14 2017 11:11AM PATIENT OBSERVATION ASSISTANT * [facility]LEPROVIBRANDO - 12/23/2016 12:00 AM CDTAssociated Order(s): ANTICOAGULATION [facility] Name: CRISTIAN BLEDSOE : 1945 DOS: [...] by:Tiffani Carrero RN Dec 23 2016 11:30AM PATIENT OBSERVATION ASSISTANT * [facility], GENERICPROVIDER - 12/02/2016 12:00 AM CDTAssociated Order(s): ANTICOAGULATION [facility] Name: CRISTIAN BLEDSOE : 1945 DOS: [...] by:Tiffani Carrero RN Dec 02 2016 4:10PM PATIENT OBSERVATION ASSISTANT * [facility], GENERICPROVIDER - 11/17/2016 12:00 AM CDTAssociated Order(s): ANTICOAGULATION [facility] Name: CRISTIAN BLEDSOE : 1945 DOS: [...] has an appointment next week with an machine operator hop worker to discuss a possible ablation. Patient denies any medication changes. INR tested today is therapeutic at 2.7 with the recommended range of 2.0 to 3.0. Patient will continue Coumadin at 5 mg daily with an INR recheck in two weeks. Patient verbalizes understanding. Electronically signed by:Tiffani Carrero RN Nov 17 2016 9:36AM PATIENT OBSERVATION ASSISTANT * [facility] GENERICPROSpontactsDER - 11/10/2016 12:00 AM CDTAssociated Order(s): ANTICOAGULATION [facility] Name: CRISTIAN BLEDSOE : 1945 DOS: [...] week. Patient verbalizes understanding. Electronically signed by:Tiffani Crarero RN Nov 10 2016 2:41PM PATIENT OBSERVATION ASSISTANT * [facility] GENERICPROVIDER - 10/29/2016 12:00 AM CDTAssociated Order(s): ANTICOAGULATION Anticoagulation [facility] Name: CRISTIAN BLEDSOE : 1945 DOS: [...] by:Tiffani Carrero RN Oct 29 2016 3:44PM PATIENT OBSERVATION ASSISTANT * [facility]PR[facility]ontacts[facility]ANDO - 10/23/2016 12:00 AM CDTAssociated Order(s): ANTICOAGULATION [facility] Name: CRISTIAN BLEDSOE : 1945 DOS: 10/23/2016 This is a patient of Dr. Berry. He is taking anticoagulation for a diagnosis of atrial fibrillation.He is scheduled for a prostate biopsy today at the [facility] with Dr. Maloney. Patient had his INR checked in the [facility] lab prior to his procedure today. [...] by:Tiffani Carrero RN Oct 26 2016 9:49AM PATIENT OBSERVATION ASSISTANT * MICHELLE AUSTINPROLUBNA - 10/13/2016 12:00 AM CDTAssociated Order(s): ANTICOAGULATION [facility] Name: CRISTIAN BLEDSOE : 1945 DOS: [...] will have his INR checked at the [facility] prior to his biopsy which is [...] by:Tiffani Carrero RN Oct 13 2016 12:13PM PATIENT OBSERVATION ASSISTANT AMENDMENTS: 1. Patient states that he was in the [facility] ER on October 08 with a [...] by:Tiffani Carrero RN Oct 13 2016 12:36PM PATIENT OBSERVATION ASSISTANT * [facility], GENERICPROLUBNA - 09/15/2016 12:00 AM CSTAssociated Order(s): ANTICOAGULATION Anticoagulation [facility] Name: CRISTIAN BLEDSOE : 1945 DOS: [...] by:Tiffani Carrero RN Sep 15 2016 2:04PM PATIENT OBSERVATION ASSISTANT * [facility] - 08/18/2016 12:00 AM CSTAssociated Order(s): ANTICOAGULATION Anticoagulation [facility] Name: CRISTIAN BLEDSOE : 1945 DOS: [...] by:Tiffani Carrero RN Aug 18 2016 2:21PM PATIENT OBSERVATION ASSISTANT * [facility] GENERICPROVIBRANDO - 07/28/2016 12:00 AM CSTAssociated Order(s): ANTICOAGULATION Anticoagulation [facility] Name: CRISTIAN BLEDSOE : 1945 DOS: [...] by:Tiffani Carrero RN Jul 28 2016 11:06AM PATIENT OBSERVATION ASSISTANT * [facility], GENERICPROVIDER - 07/14/2016 12:00 AM CSTAssociated Order(s): ANTICOAGULATION [facility]ticoagulation [facility] Name: CRISTIAN BLEDSOE : 1945 DOS: [...] by:Tiffani Carrero RN Jul 14 2016 11:21AM PATIENT OBSERVATION ASSISTANT * [facility] GENERICPROVIBRANDO - 06/30/2016 12:00 AM CSTAssociated Order(s): ANTICOAGULATION [facility]ticoagulation [facility] Name: CRISTIAN BLEDSOE : 1945 DOS: [...] by:Tiffani Carrero RN Jun 30 2016 9:24AM PATIENT OBSERVATION ASSISTANT * [facility] - 05/20/2016 12:00 AM CSTAssociated Order(s): ANTICOAGULATION Anticoagulation [facility] Name: CRISTIAN BLEDSOE : 1945 DOS: [...] by:Tiffani Carrero RN May 20 2016 3:59PM PATIENT OBSERVATION ASSISTANT * [facility] MICHELLEPROGINABRANDO - 04/15/2016 12:00 AM CDTAssociated Order(s): ANTICOAGULATION [facility] Name: CRISTIAN BLEDSOE : 1945 DOS: [...] by:Tiffani Carrero RN Apr 15 2016 5:55PM PATIENT OBSERVATION ASSISTANT * [facility] MICHELLEPROVIBRANDO - 03/18/2016 12:00 AM CDTAssociated Order(s): ANTICOAGULATION [facility] Name: CRISTIAN BLEDSOE : 1945 DOS: [...] by:Tiffani Carrero RN Mar 18 2016 9:42AM PATIENT OBSERVATION ASSISTANT * MICHELLE AUSTINPROLUBNA - 03/09/2016 12:00 AM [...] understanding Signatures Electronically signed by : Tiffani aCrrero RN; Mar 09 2016 9:59AM PATIENT OBSERVATION ASSISTANT * [facility] MICHELLEPROVIBRANDO - 02/27/2016 12:00 AM CDTAssociated Order(s): ANTICOAGULATION [facility] Name: CRISTIAN BLEDSOE : 1945 DOS: [...] by:Tiffani Carrero RN Feb 27 2016 12:04PM PATIENT OBSERVATION ASSISTANT * [facility] GENERICPROVIBRANDO - 02/12/2016 12:00 AM CDTAssociated Order(s): ANTICOAGULATION [facility] Name: CRISTIAN BLEDSOE : 1945 DOS: [...] by:Tiffani Carrero RN Feb 12 2016 9:02AM PATIENT OBSERVATION ASSISTANT * [facility] GENERICPROVIBRANDO - 02/04/2016 12:00 AM CDTAssociated Order(s): ANTICOAGULATION Anticoagulation [facility] Name: CRISTIAN BLEDSOE : 1945 DOS: [...] by:Tiffani Carrero RN Feb 04 2016 9:45AM PATIENT OBSERVATION ASSISTANT * [facility] GENER[facility]OVID[facility] - 01/31/2016 12:00 AM CDTAssociated [...] by:Carlene Hargrove RN Jan 31 2016 2:45PM PATIENT OBSERVATION ASSISTANT documented in this encounter Plan of [...] Results * ANTICOAGULATION (01/14/2017) Narrative Procedure Note [facility] GENERICPROVID[facility] - 01/14/2017 12:00 AM CDT [facility] Name: CRISTIAN BLEDSOE : 1945 DOS: [...] by:Tiffani Carrero RN Jan 14 2017 11:11AM PATIENT OBSERVATION ASSISTANT [facility] OTHER * ANTICOAGULATION (12/23/2016) Narrative Procedure Note [facility] - 12/23/2016 12:00 AM CDT Anticoagulation [facility] Name: CRISTIAN BLEDSOE : 1945 DOS: 12/23/2016 This is a patient of Dr. Berry. He is here today for an anticoagulationassessment and INR check for a diagnosis of atrial fibrillation. Patientstates that he has been feeling well. He reports that he met with at the [facility] and will begin radiation on January 06. [...] by:Tiffani Carrero RN Dec 23 2016 11:30AM PATIENT OBSERVATION ASSISTANT [facility] OTHER * ANTICOAGULATION (12/02/2016) Narrative Procedure Note [facility] - 12/02/2016 12:00 AM CDT Anticoagulation [facility] Name: CRISTIAN BLEDSOE : 1945 DOS: [...] by:Tiffani Carrero RN Dec 02 2016 4:10PM PATIENT OBSERVATION ASSISTANT [facility] OTHER * ANTICOAGULATION (11/17/2016) Narrative Procedure Note [facility] - 11/17/2016 12:00 AM CDT Anticoagulation [facility] Name: CRISTIAN BLEDSOE : 1945 DOS: [...] by:Tiffani Carrero RN Nov 17 2016 9:36AM PATIENT OBSERVATION ASSISTANT [facility] OTHER * ANTICOAGULATION (11/10/2016) Narrative [facility] - 11/10/2016 12:00 AM CDT Anticoagulation [facility] Name: CRISTIAN BLEDSOE : 1945 DOS: 11/10/2016 This is a patient of Dr. Berry. He is here today for an anticoagulationassessment and INR check for a diagnosis of atrial fibrillation. Patientstates that he has been feeling well. He reports that he has beendiagnosis with prostate cancer and will be meeting with Dr. Con[facility] to find out information regarding radiation therapy. Patientdenies any medication changes. INR tested today is elevated at 3.6 withthe recommended range of 2.0 to 3.0. Patient will adjust Coumadin with ahold today (11/10), then take 5 mg daily with an INR recheck in one week.Patient verbalizes understanding. Electronically signed by:Tiffani Carrero RN Nov 10 2016 2:41PM PATIENT OBSERVATION ASSISTANT [facility] OTHER * ANTICOAGULATION (10/29/2016) Narrative Procedure Note [facility] - 10/29/2016 12:00 AM CDT Anticoagulation [facility] Name: CRISTIAN BLEDSOE : 1945 DOS: [...] by:Tiffani Carrero RN Oct 29 2016 3:44PM PATIENT OBSERVATION ASSISTANT [facility] OTHER * ANTICOAGULATION (10/23/2016) Narrative Procedure Note [facility] - 10/23/2016 12:00 AM CDT Anticoagulation [facility] Name: CRISTIAN BLEDSOE : 1945 DOS: 10/23/2016 This is a patient of Dr. Berry. He is taking anticoagulation for adiagnosis of atrial fibrillation. He is scheduled for a prostate biopsytoday at the [facility] with Dr. Maloney. Patient had his INR checkedin the [facility] lab prior to his procedure today. [...] by:Tiffani Carrero RN Oct 26 2016 9:49AM PATIENT OBSERVATION ASSISTANT [facility] OTHER * ANTICOAGULATION (10/13/2016) Narrative [facility] - 10/13/2016 12:00 AM CDT [facility] Name: CRISTIAN BLEDSOE : 1945 DOS: [...] [facility] which [...] by:Tiffani Carrero RN Oct 13 2016 12:13PM PATIENT OBSERVATION ASSISTANT AMENDMENTS: 1. Patient states that he was in the [facility] ER on October 08 with arapid [...] by:Tiffani Carrero RN Oct 13 2016 12:36PM PATIENT OBSERVATION ASSISTANT [facility] OTHER * ANTICOAGULATION (09/15/2016) Narrative Procedure Note [facility] - 09/15/2016 12:00 AM CST [facility] Name: CRISTIAN BLEDSOE : 1945 DOS: [...] by:Tiffani Carrero RN Sep 15 2016 2:04PM PATIENT OBSERVATION ASSISTANT [facility] OTHER * ANTICOAGULATION (08/18/2016) Narrative Procedure Note [facility] - 08/18/2016 12:00 AM CST Anticoagulation [facility] Name: CRISTIAN BLEDSOE : 1945 DOS: [...] by:Tiffani Carrero RN Aug 18 2016 2:21PM PATIENT OBSERVATION ASSISTANT [facility] OTHER * ANTICOAGULATION (07/28/2016) Narrative Procedure Note [facility] - 07/28/2016 12:00 AM CST Anticoagulation [facility] Name: CRISTIAN BLEDSOE : 1945 DOS: [...] by:Tiffani Carrero RN Jul 28 2016 11:06AM PATIENT OBSERVATION ASSISTANT [facility] OTHER * ANTICOAGULATION (07/14/2016) Narrative Procedure Note [facility] - 07/14/2016 12:00 AM CST Anticoagulation [facility] Name: CRISTIAN BLEDSOE : 1945 DOS: [...] by:Tiffani Carrero RN Jul 14 2016 11:21AM PATIENT OBSERVATION ASSISTANT [facility] OTHER * ANTICOAGULATION (06/30/2016) Narrative Procedure Note [facility] - 06/30/2016 12:00 AM CST Anticoagulation [facility] Name: CRISTIAN BLEDSOE : 1945 DOS: [...] by:Tiffani Carrero RN Jun 30 2016 9:24AM PATIENT OBSERVATION ASSISTANT [facility] OTHER * ANTICOAGULATION (05/20/2016) Narrative Procedure Note [facility] - 05/20/2016 12:00 AM CST Anticoagulation [facility] Name: CRISTIAN BLEDSOE : 1945 DOS: [...] by:Tiffani Carrero RN May 20 2016 3:59PM PATIENT OBSERVATION ASSISTANT [facility] OTHER * ANTICOAGULATION (04/15/2016) Narrative Procedure Note [facility] - 04/15/2016 12:00 AM CDT Anticoagulation [facility] Name: CRISTIAN BLEDSOE : 1945 DOS: [...] by:Tiffani Carrero RN Apr 15 2016 5:55PM PATIENT OBSERVATION ASSISTANT [facility] OTHER * ANTICOAGULATION (03/18/2016) Narrative Procedure Note [facility] - 03/18/2016 12:00 AM CDT Anticoagulation [facility] Name: CRISTIAN BLEDSOE : 1945 DOS: [...] by:Tiffani Carrero RN Mar 18 2016 9:42AM PATIENT OBSERVATION ASSISTANT [facility] OTHER * ANTICOAGULATION (03/09/2016) Narrative Procedure Note [facility] - 03/09/2016 12:00 AM CDT [facility] Comments [...] OTHER * ANTICOAGULATION (02/27/2016) Narrative Procedure Note [facility] - 02/27/2016 12:00 AM CDT Anticoagulation [facility] Name: CRISTIAN BLEDSOE : 1945 DOS: [...] by:Tiffani Carrero RN Feb 27 2016 12:04PM PATIENT OBSERVATION ASSISTANT [facility] OTHER * ANTICOAGULATION (02/12/2016) Narrative Procedure Note [facility] - 02/12/2016 12:00 AM CDT Anticoagulation [facility] Name: CRISTIAN BLEDSOE : 1945 DOS: [...] by:Tiffani Carrero RN Feb 12 2016 9:02AM PATIENT OBSERVATION ASSISTANT [facility] OTHER * ANTICOAGULATION (02/04/2016) Narrative Procedure Note [facility] - 02/04/2016 12:00 AM CDT Anticoagulation [facility] Name: CRISTIAN BLEDSOE : 1945 DOS: [...] by:Tiffani Carrero RN Feb 04 2016 9:45AM PATIENT OBSERVATION ASSISTANT [facility] OTHER * ANTICOAGULATION (01/31/2016) Narrative Procedure Note [facility] - 01/31/2016 12:00 AM CDT Name: [...] by:Carlene Hargrove RN Jan 31 2016 2:45PM PATIENT OBSERVATION ASSISTANT [facility] OTHER documented in this encounter Visit Diagnoses Not on filedocumented in this encounter Care Teams Engraving Press Operator Relationship Specialty Start Date End Date Casey Berry II, DO PCP - General 11/22/06 08/17/19 Stephani Aleman MD PCP - General Family Medicine 08/18/19 09/16/20 Bianka Loera CNP [address] [place] [phone] PCP - General Nurse Practitioner Family 09/17/20 7/2 12/31 Desiree Patrick MD [address] [place] [address] PCP - General Electrophysiology 02/23/22 03/09/22 Desiree Patrick MD [address] [place] [address] 08/09/17 Farrah Nicole APRN,MANAGER MARKET [address] [place] [address] 08/09/17 Bry Echevarria MD [address] [place] [address] [place] [address] 08/09/17 Casey Berry II, DO 08/09/17 Shruti Vergara, RN RN Registered Nurse 08/27/20 documented as of this encounter Additional Source Comments PLEASE NOTE: Replies to this message will not be received.[facility]
--- OUTSIDE RECORDS SUMMARY | 2024-03-16 16:22 | XMS_ITS | Encounter Summary ---
Author Organization [facility] Address [address] [place] [address] Care Team Providers Care Cullet Crusher Name Role Phone Unavailable Primary Care Provider Unavailabl e Reason for Referral * MRI/CAT/PET Scan (Routine) - Closed Specialty Diagnoses / Procedures Referred By Malinda wan Referred To Contact Radiology Diagnoses Parkinsonism Unspecified (HCC) Procedures MR Brain without and with IV Contrast Vic Mae M.D. [address] [place] [address] [facility] Region Referral ID Status Reason Start Date Expiration Date Visits Re quested Visits Authorized [id number] Closed 02/23/2024 02/22/2025 1 1 Reason for Visit * Reason Comments Parkinson's Disease * Outpatient (Routine) - Closed Specialty Diagnoses / Procedures Referred By Malinda wan Referred To Contact Neurology Diagnoses Parkinsonism Unspecified (HCC) Cameron Poe M.D., M.P.H. [address] [place] [address] [facility] Region Referral ID Status Reason Start Date Expiration Date Visits Re quested Visits Authorized [id number] Closed 01/05/2023 01/05/2024 1 1 Encounter Details Date Type Department Care Team (Latest Contact Info) Description 02/23/2024 10:15 AM CDT Comprehensive Visit Department of Neurology in [place], [place] [address] [place] [address] Vic Mae M.D. [address] [address] Parkinsonism Unspecified (HCC) Social History [...] of this encounter Progress Notes * Vic Mea M.D. - 02/23/2024 10:15 AM CDT SUBJECTIVE CHIEF COMPLAINT / REASON FOR VISIT Rohan Carroll is a 78 y.o. male who returns for follow-up of parkinsonism. 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 Neurology for evaluation of parkinsonism. Please recall [...]
--- OUTSIDE RECORDS SUMMARY | 2024-03-16 16:22 | XMS_ITS | Encounter Summary ---
Author Organization [facility] [employer] Address [address] [place] [address] Care Team Providers Care Asic Verification Engineer Name Role Phone Jamal CARLISLE DO, Robert William Primary Care Provide r Unavailable Desiree Patrick MD Unavailable Farrah Nicole APRN,OFFICE ADMINISTRATION INSTRUCTOR Unavailable Bry Echevarria MD Unavailable [phone] Jamal CARLISLE DO, Robert William Unavailable Unav Stephani Diaz MD Primary Care Provider Shruti Vergara RN Unavailable Unavailable Bianka Loera CNP Primary Care Provider Desiree Patrick MD Primary Care P rovider Encounter Details Date Type Department Care Team (Late st Contact Info) Description [address] [address] Social History Tobacco Use Types Packs/Day Years [...] on filedocumented in this encounter Care Teams Asic Verification Engineer Relationship Specialty Start Date End Date Casey Berry II, DO PCP - General 11/22/06 08/17/19 Stephani Aleman MD PCP - General Family Medicine 08/18/19 09/16/20 Bianka Loera SAFE DEPOSIT BOX RENTAL CLERK [address] [place] [address] [address] [place] [phone] PCP - General Nurse Practitioner Family 09/17/20 712/31 Desiree Patrick MD [address] [place] [address] PCP - General Electrophysiology 02/23/22 03/09/22 Desiree Patrick MD [address] [place] [address] 08/09/17 Farrah Nicole APRN,OFFICE ADMINISTRATION INSTRUCTOR [address] [place] [address] 08/09/17 Bry Echevarria MD [address] [place] [phone] 08/09/17 Casey Berry II, DO 08/09/17 Shruti Vergara RN RN Registered Nurse 08/27/20 documented as of this encounter Additional Source Comments PLEASE NOTE: Replies to this message will not be received.[facility]
--- OUTSIDE RECORDS SUMMARY | 2024-03-16 16:22 | XMS_ITS | Encounter Summary ---
Author Organization [employer] Address [address] [place] [address] Care Team Providers Care Flat Lock Operator Name Role Phone Jamal CARLISLE DO, Robert William Primary Care Provide r Unavailable Desiree Patrick MD Unavailable Farrah Nicole APRN,SERVICE OR WORK DISPATCHER Unavailable Bry Echevarria MD Unavailable Jamal CARLISLE DO, Robert William Unavailable Unav Stephani Diaz MD Primary Care Provider Shruti Vergara RN Unavailable Unavailable Bianka Loera CNP Primary Care Provider Desiree Patrick MD Primary Care P rovider Encounter Details Date Type Department Care Team (Late st Contact Info) Description 09/10/2014 Historical Conversion [facility] Family Medicine [address] [place] [address] Casey Berry II, DO Social History Tobacco Use Types Packs/Day Years Used Date Smoking Tobacco: Never Assessed Sex and Gender Information Value Date Recorded Sex Assigned at Not on file Gender Identity Not on file Sexual Orientation Not on file documented as of this encounter Last Filed Vital Signs Vital Sign Reading Time Taken Comments Blood Pressure 130/80 09/10/2014 12:00 AM MERCHANDISE ASSOCIATE Pulse - - Temperature - - Respiratory Rate - - Oxygen Saturation - - Inhaled Oxygen Concentration - - Weight 93.9 kg (207 lb 0.2 oz) 09/10/2014 12:00 AM MERCHANDISE ASSOCIATE Height - - Body Mass Index 27.31 08/22/2014 12:00 AM MERCHANDISE ASSOCIATE documented in this encounter Plan of Treatment Not on file documented as of this encounter Visit Diagnoses Not on filedocumented in this encounter Care Teams Flat Lock Operator Relationship Specialty Start Date End Date Casey Berry II, DO PCP - General 11/22/06 08/17/19 Stephani Aleman MD PCP - General Family Medicine 08/18/19 09/16/20 Bianka Loera CNP [address] [place] [address] [address] [place] [phone] PCP - General Nurse Practitioner Family 09/17/2001/10 Desiree Patrick MD [address] [place] [address] PCP - General Electrophysiology 02/23/22 03/09/22 Desiree Patrick MD [address] [place] [address] 08/09/17 Farrah Nicole APRN,SERVICE OR WORK DISPATCHER [address] [place] [address] 08/09/17 Bry Echevarria MD [address] [place] [address] [place] [phone] 08/09/17 Casey Berry II, DO 08/09/17 Shruti Vergara RN RN Registered Nurse 08/27/20 documented as of this encounter Additional Source Comments PLEASE NOTE: Replies to this message will not be received.[facility]
--- OUTSIDE RECORDS SUMMARY | 2024-03-16 16:22 | XMS_ITS | Encounter Summary ---
Author Organization [facility] Address [address] [place] [address] Care Team Providers Care Rn Homecare Name Role Phone Jamal CARLISLE DO, Robert William Primary Care Provide r Unavailable Desiree Patrick MD Unavailable Farrah Nicole APRN,RUBBER TIRE CURER Unavailable Bry Echevarria MD Unavailable Jamal CARLISLE DO, Robert William Unavailable Unav Stephani Diaz MD Primary Care Provider Shruti Vergara RN Unavailable Unavailable Bianka Loera CNP Primary Care Provider [phone] Desiree Patrick MD Primary Care P rovider Encounter Details Date Type Department Care Team (Late st Contact Info) Description 08/22/2014 Historical Conversion [facility] [address] [place] [address] Casey Berry II, DO Social History Tobacco Use Types Packs/Day Years Used Date Smoking Tobacco: Never Assessed Sex and Gender Information Value Date Recorded Sex Assigned at Not on file Gender Identity Not on file Sexual Orientation Not on file documented as of this encounter Progress Notes * Casey Berry II, DO - 01/29/2015 12:00 AM CDT CRISTIAN BL[place]SOE : 1945 HX: [id number] DOS: 01/29/2015 CHIEF COMPLAINT: Follow up after [...] by:Casey Berry D.O. Feb 11 2015 7:55AM COP * Casey Berry II, DO - 09/10/2014 12:00 AM CST CRISTIAN BLEDSOE : 1945 HX: [id number] DOS: 09/10/2014 CHIEF COMPLAINT: Follow up of [...] by:Casey Berry D.O. Sep 26 2014 3:33PM COP documented in this encounter Miscellaneous Notes * [...] you have any questions. Casey Berry DO [facility] Electronically signed by:DEYANIRA FRANCOIS Dec 06 2014 9:03AM COP documented in this encounter Plan of Treatment Not on file documented as of this encounter Visit Diagnoses Not on filedocumented in this encounter Care Teams Rn Homecare Relationship Specialty Start Date End Date Casey Berry II, DO PCP - General 11/22/06 08/17/19 Stephani Aleman MD PCP - General Family Medicine 08/18/19 09/16/20 Bianka Loera, WELFARE CASE WORKER [address] [place] [phone] PCP - General Nurse Practitioner Family 09/17/2001/10 Desiree Patrick MD [address] [place] [address] PCP - General Electrophysiology 02/23/22 03/09/22 Desiree Patrick MD [address] [place] [address] 08/09/17 Farrah Nicole APRN,RUBBER TIRE CURER [address] [place] [address] 08/09/17 Bry Echevarria MD [address] [place] [address] [place] [address] 08/09/17 Casey Berry II, DO 08/09/17 Shruti Vergara RN RN Registered Nurse 08/27/20 documented as of this encounter Additional Source Comments PLEASE NOTE: Replies to this message will not be received.[facility]
--- OUTSIDE RECORDS SUMMARY | 2024-03-16 16:22 | XMS_ITS | Encounter Summary ---
Author Organization [facility] Address [address] [place] [address] Care Team Providers Care Vessel Traffic Officer Name Role Phone Jamal CARLISLE DO, Robert William Primary Care Provide r Unavailable Desiree Patrick MD Unavailable Farrah Nicole APRN,ALEX Unavailable Bry Echevarria MD Unavailable Jamal CARLISLE DO, Robert William Unavailable Unav ailable Stephani Aleman MD Primary Care Provider Shruti Vergara RN Unavailable Unavailable Bianka Loera CNP Primary Care Provider [phone] Desiree Patrick MD Primary Care P rovider Encounter Details Date Type Department Care Team (Late st Contact Info) Description 12/01/2006 HIM Dog Raiser Generic Dog Raiser [address] [place] [address] Social History Tobacco Use Types [...] filedocumented in this encounter Care Teams Vessel Traffic Officer Relationship Specialty Start Date End Date Casey Berry II, DO PCP - General 11/22/06 08/17/19 Stephani Aleman MD PCP - General Family Medicine 08/18/19 09/16/20 Bianka Loera CNP [address] [place] [address] PCP - General Nurse Practitioner Family 09/17/2001/10 Desiree Patrick MD [address] [place] [place] [address] PCP - General Electrophysiology 02/23/22 03/09/22 Desiree Patrick MD [address] [place] [address] 08/09/17 Farrah Nicole APRN,PMO LEAD [address] [place] [address] 08/09/17 rBy Echevarria MD [address] [place] [phone] 08/09/17 Casey Berry II, DO 08/09/17 Shruti Vergara, RN RN Registered Nurse 08/27/20 documented as of this encounter Additional Source Comments PLEASE NOTE: Replies to this message will not be received.[facility]
--- OUTSIDE RECORDS SUMMARY | 2024-03-16 16:22 | XMS_ITS ---
Author Organization [facility] Address [address] [place] [address] Care Team Providers Care Talent Acquisition Consultant Name Role Phone Unavailable Unavailable Unavailable Surgery Details Not on file Complications Check Surgery Details section. Procedure Estimated Blood Loss Check Surgery Details section. Procedure Findings Check Surgery Details section. Procedure Specimens Taken Check Surgery Details section.
--- OUTSIDE RECORDS SUMMARY | 2024-03-16 16:22 | XMS_ITS | Referral Summary ---
Author Organization [facility] Address [address] [place] [address] Care Team Providers Care Biology Laboratory Assistant Name Role Phone Unavailable Primary Care Provider Unavailabl e Source Comments Patient records contain information from all sites at [facility]. For routine questions regarding patient records, call [phone] during business hours, M-F 8:00 AM - 5:00 PM Central Time. Record requests for emergency care only can be directed to [phone] at any time.[facility] Encounters Date Type Department Care Team Description 02/24/2024 1:38 PM CDT - 02/24/2024 11:59 PM CDT Hospital Encounter Department of Radiology in [address] [address] Vic Mae M.D. Parkinsonism Unspecified (HCC) Discharge Disposition: Home or Self Care 02/23/2024 10:15 AM CDT Comprehensive Visit Department of Neurology in [address] [address] Vic Mae M.D. Parkinsonism Unspecified (HCC) from [...] 2015 Overview (05/17/2023): 4.2 x 4.3 on [facility] Social History Tobacco Use Types [...] Comments Blood Pressure 136/82 05/17/2023 1:44 PM [employer] Pulse 70 05/17/2023 1:44 PM [employer] Temperature 36.8 ??C (98.2 ??F) 05/17/2023 1:44 PM CS T Respiratory Rate - - Oxygen Saturation - - Inhaled Oxygen Concentration - - Weight 87.3 kg (192 lb 7.4 oz) 05/17/2023 1:44 P M [employer] Height 184 cm (6' 0.44) 04/15/2023 2:57 [...]
--- OUTSIDE RECORDS SUMMARY | 2024-03-16 16:22 | XMS_ITS | Encounter Summary ---
Author Organization [facility] Address [address] [place] [address] Care Team Providers Care Electronic Systems Technician Name Role Phone Jamal CARLISLE DO, Robert William Primary Care Provide r Unavailable Desiree Patrick MD Unavailable Farrah Nicole APRN,PAINTER HELPER Unavailable Bry Echevarria MD Unavailable [phone] Jamal CARLISLE DO, Robert William Unavailable Unav Stephani Diaz MD Primary Care Provider Shruti Vergara RN Unavailable Unavailable Bianka Loera CNP Primary Care Provider [phone] Desiree Patrick MD Primary Care P rovider Encounter Details Date Type Department Care Team (Late st Contact Info) Description 11/19/2015 HIM Blast Furnace Tender [facility] [place] [address] [place] [address] Dionisio Meneses MD [address] [place] [address] Social History Tobacco Use Types [...] ADULT WITH OR WITHOUT CONTRAST PERFORMED BY: BOKEELIA, [place] SITE: PEVELY, [place] INTERPRETED BY: [facility] [place], [place] TRANSTHORACIC ECHOCARDIOGRAM REPORT REFERRING DIAGNOSIS: Atrial [...] comparison. Note: This study was performed by [facility]. Only the interpretation wasperformed at the [facility]. Electronically signed Dionisio Meneses MD, [facility] Real Estate Administrator , 04:04 P A vd/Doc#: [id number] cc: Adult Normal Value Adult Patient Values [...] kg Blood pressure: 126/75 Previous study: -- Care Services Manager: Lisa documented in this encounter Plan of [...] - 11/19/2015 12:00 AM CDT PERFORMED BY: BOKEELIA, [place] SITE: PEVELY, [place] INTERPRETED BY: [facility] H[place], [place] TRANSTHORACIC ECHOCARDIOGRAM REPORT REFERRING DIAGNOSIS: Atrial [...] comparison. Note: This study was performed by [facility]Only the interpretation was performed at the [facility] [place]. Electronically signed Dionisio Meneses MD, [facility] Real Estate Administrator , 04:04 P A vd/Doc#: [id number] cc: Adult Normal Value Adult Patient Values [...] kg Blood pressure: 126/75 Previous study: -- Care Services Manager: Lisa Dionisio Meneses MD CAR ULTRASOUND documented in this encounter Visit Diagnoses Not on filedocumented in this encounter Care Teams Electronic Systems Technician Relationship Specialty Start Date End Date Casey Berry II, DO PCP - General 11/22/06 08/17/19 Stephani Aleman MD PCP - General Family Medicine 08/18/19 09/16/20 Bianka Loera GAS ADJUSTER [address] [place] [address] [address] [place] [phone] PCP - General Nurse Practitioner Family 09/17/20 712/31 Desiree Patrick MD [address] [place] [address] PCP - General Electrophysiology 02/23/22 03/09/22 Desiree Patrick MD [address] [place] [address] 08/09/17 Farrah Nicole APRN,PAINTER HELPER [address] [place] [phone] 08/09/17 Bry Echevarria MD [address] [place] [phone] 08/09/17 Casey Berry II, DO 08/09/17 Shruti Vergara RN RN Registered Nurse 08/27/20 documented as of this encounter Additional Source Comments PLEASE NOTE: Replies to this message will not be received.[facility]
--- OUTSIDE RECORDS SUMMARY | 2024-03-16 16:22 | XMS_ITS | Clinical Summary ---
Author Organization [facility] Address [address] [place] [address] Care Team Providers Care Stereo Map Plotter Operator Name Role Phone Unavailable Primary Care Provider Unavailabl e Source Comments Patient records contain information from all sites at [facility]. For routine questions regarding patient records, call [phone] during business hours, M-F 8:00 AM - 5:00 PM Central Time. Record requests for emergency care only can be directed to [phone] at any time.[facility] Allergies Active Allergy Reactions Criticality Noted Date [...] 2015 Overview (05/17/2023): 4.2 x 4.[address] [facility] Encounters Date Type Department Care Team Description 02/24/2024 1:38 PM CDT - 02/24/2024 11:59 PM CDT Hospital Encounter Department of Radiology in [place], [place] [address] [place] [phone] Vic Mae M.D. Parkinsonism Unspecified (HCC) Discharge Disposition: Home or Self Care 02/23/2024 10:15 AM CDT Comprehensive Visit Department of Neurology in [place], [place] [address] [place] [address] Vic Mae M.D. Parkinsonism Unspecified (HCC) from [...] Comments Blood Pressure 136/82 05/17/2023 1:44 PM MOTORCYCLE BUILDER Pulse 70 05/17/2023 1:44 PM MOTORCYCLE BUILDER Temperature 36.8 ??C (98.2 ??F) 05/17/2023 1:44 PM CS T Respiratory Rate - - Oxygen Saturation - - Inhaled Oxygen Concentration - - Weight 87.3 kg (192 lb 7.4 oz) 05/17/2023 1:44 P M MOTORCYCLE BUILDER Height 184 cm (6' 0.44) 04/15/2023 2:57 PM CDT Body Mass Index 25.79 04/15/2023 2:57 PM CDT Plan of Treatment Health Maintenance Due Date Last Done Comments Creatinine Level (Kidney Fun ction Test) 1945 Hepatitis C Screening 1945 Potassium Level 1945 Sodium Level 1945 Fall Risk Screen (Annual) 07/12/2023 COVID-19 Vaccine (2022-2 4 season) 2024 04/17/2023, 05/07/2022, 11/04/2021, Additional history exists Influenza [...]
--- OUTSIDE RECORDS SUMMARY | 2024-03-16 16:23 | XMS_ITS | Clinical Summary ---
Author Organization [facility] Address [address] [place] [address] Care Team Providers Care Brim Stitcher Name Role Phone Unavailable Primary Care Provider Unavailabl e Source Comments You are receiving this document as you are listed as the primary care provider,follow-up provider, or the patient has been referred to you for consultation.This is in compliance with the Medicare and[facility] Hospitalcaid EHR Incentive Program,which states Providers who transition their patient to another setting of careor provider of care or refers their patient to another provider of care shouldprovide summary care record for each transition of care or referral. [place] [employer] [facility] Prevention Allergies Active Allergy Reactions Criticality Noted Date [...] Type Department Care Team Description 02/15/2024 Telephone [facility] [address] [place] [address] Ashely El, RN WEIGHT LOSS [...] MTM Covered 1945 Adult Preventive Visit 1962 Zoster/Shingles (3 of 3) 11/10/2023 09/15/2023, 01/10 COVID-19 Vaccine ( season) 2024 04/17/2023, 05/07/2022, 11/04/2021, Additional history exists Influenza (#1) 2024 05/04/2023, 1009/2021, 03/25/2021, Additional history exists DTaP/Tdap/Td (3 - [...]
--- OUTSIDE RECORDS SUMMARY | 2024-03-16 16:23 | XMS_ITS | Continuity of Care Document ---
Author Organization [facility] Address [address] [place] [address] Phone Care Team Providers Care Grinding Machine Operator Name Role Phone Timoteo Acosta D.O. [...] Diagnoses Date Provider Providers Copied on Encounter [facility], [address] [place] [address], [id number], tel:[phone] [facility] No Information Dave Mahmood. [address] [place] [address], [id number], [place]. tel:[phone] [facility], [address] [place] [address], [id number], [place] tel:[phone] [facility] No Information Dave Mahmood. [address] [place] [address], [id number], [place]. tel:[phone] Referring Provider: Cherelle Borja [facility] [address], [place], [address]. tel:[phone] [facility], [address] [place] [address], [id number], [place] tel:[phone] [facility] No Information Dave Mahmood. [address] [place] [address], [id number], [place]. tel:[phone] Referring Provider: Cherelle Borja [facility] [address], [place], [address]. tel:[phone] OFFICE/OUTPATI ENT VISIT, EST [facility], [address] [place] [address], [id number], [place] tel:[phone] [facility] decreased vision (chief complaint) PCO-OSDrusen (degenerative ) of macula, left eye Dave Mahmood. [address] [place] [address], [id number], [place]. tel:[phone] Referring Provider: Cherelle Borja [facility] [address], [place], [address]. tel:[phone] [facility], [address] [place] [address], [id number], tel:[phone] [facility] No Information Dave Mahmood. [address] [place] [address], [id number], . tel:[phone] Referring Provider: Timoteo Zhao, [address] [place] [address], [id number]. tel:[phone] [facility], [address] [place] [address], [id number], tel:[phone] [facility] No Information Dave Mahmood. [address] [place] [address], [id number], [place]. tel:[phone] Referring Provider: Timoteo Zhao, [address] [place] [address], [address] [place] [address]. tel:[phone] OFFICE/OUTPATI ENT VISIT, [facility], [address] [place] [address], [address] [place] [address], tel:[phone] [facility] blurry vision (chief complaint) Cat-combined- ODCat-Pseudop hakia Dave Mahmood. [address] [place] [address], [id number], [place]. tel:[phone] Referring Provider: Timoteo Zhao, [address] [place] [address], [address] [place] [address]. tel:[phone] [facility], [address] [place] [address], [id number], [place] tel:[phone] [facility] No Information Dave Mahmood. [address] [place] [address], [id number], [place]. tel:[phone] Referring Provider: Timoteo Zhao, [address] [place] [address], [id number]. tel:[phone] [facility], [address] [place] [address], [id number], tel:[phone] [facility] No Information Dave Mahmood. [address] [place] [address], [id number], [place]. tel:[phone] Referring Provider: Timoteo Zhao, [address] [place] [address], [id number]. tel:[phone] [facility], [address] [place] [address], [id number], tel:[phone] [facility] No Information Dave Mahmood. [address] [place] [address], [id number], [place]. tel:[phone] Referring Provider: Timoteo Zhao, [address] [place] [address], [id number]. tel:[phone] [facility], [address] [place] [address], [id number], tel:[phone] [facility] No Information Dave Mahmood. [address] [place] [address], [id number], [place]. tel:[phone] Referring Provider: [facility] [address], [place], [address]. tel:[phone] OFFICE/OUTPATI ENT VISIT, [facility], [address] [place] [address], [id number], [place] tel:[phone] [facility] 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 [address] [place] [address], [id number], [place]. tel:[phone] Referring Provider: Cherelle Borja [facility] [address], [place], [address]. tel:[phone] [facility], [address] [place] [address], [id number], [place] tel:[phone] [facility] No Information Dave Mahmood. [address] [place], [place], [id number], . tel:[phone] Referring Provider: Timoteo Zhao, [address] [place], [address]. tel:[phone] Family History Family Member Type Diagnosis Age At Onset No Information Payers Payer name Insurance type Covered constitution party ID Viet dillon(s) [facility] [id number] Social History Type Description Quantity Date Captured [...]
--- OUTSIDE RECORDS SUMMARY | 2024-03-16 16:23 | XMS_ITS | Continuity of Care Document ---
Author Organization [facility] Address [address] [place] [address] Phone Care Team Providers Care Hadoop Administrator Name Role Phone [facility] MD, [facility] Unavailable Unavailable Allergies, Adverse Reactions, Alerts Substance Reaction Status Criticality Sulfa (Sulfonamide Antibiotics) rash Active No Information PENICILLIN rash Active No Information Medications Medication Instructions Dosage Effective Dates (start - stop) Status Comments Soiy-Pxic-Yywpj 1%/0.5%/.01% OPHTHALMIC DROPS Apply one drop to [...] Copied on Encounter [facility], [address] [place], [id number], [place] tel:[phone] [facility] No Information 2 [facility]. [address] [place], [id number]. tel:[phone] Referring Provider: Timoteo Zhao, [address] [place], [address] . tel:[phone] [facility], [address] [place], [place], [id number], [place] tel:[phone] [facility] No Information 2 [facility]. [address] [place], [id number]. tel:[phone] Referring Provider: Timoteo Zhao, [address] [place], [address] . tel:[phone] [facility], [address] [place], [id number], [place] tel:[phone] [facility] No Information 9 [facility]. [address] [place], [id number]. tel:[phone] Referring Provider: Timoteo Zhao, [address] [place], [address] . tel:[phone] [facility], [address] [place], [id number], [place] tel:[phone] [facility] No Information 9 [facility]. [address] [facility], [place], [place], [id number]. tel:[phone] Referring Provider: Timoteo Zhao, [address] [place] [address], [address] . tel:[phone] [facility], [address] [place], [place], [id number], tel:[phone] [facility] No Information 9 Dave Mahmood. [address] [place] [address], [id number], [place]. tel:[phone] Family History Family Member Type Diagnosis Age At Onset No Information Payers Payer name Insurance type Covered alliance party ID Authoriza tion(s) [facility] [id number] Social History Type Description Quantity Date Captured [...]
--- OUTSIDE RECORDS SUMMARY | 2024-03-16 16:23 | XMS_ITS | Continuity of Care Document ---
Author Organization [facility] Address [address] [place] [address] Phone Care Team Providers Care Combat Information Center Officer Name Role Phone Triston TRENT, PhD, Fabio Unavailable Unavai lable Allergies, Adverse Reactions, Alerts Substance Reaction Status Criticality Sulfa (Sulfonamide Antibiotics) Active No Information Penicillins Hives, Dermatitis Active No Informa tion Procedures Procedure Date Office/Outpatient Visit,[facility]23 Advance Directives Directive Yes / No Effective Date File Name No Information Encounters Encounter Description Practice Location Reason(s) For Visit Diagnoses Date Provider Providers Copied on Encounter [facility], [address], [place], [place], [id number], [place] tel:[phone] No Information Triston Mccarthy. [facility] [place], [address] [place] [address] [address], [place], [address], [place]. tel:[phone] Office/Outpat ient Visit,[facility], [address], [place], [place], [id number], [place] tel:[phone] [facility] [place] L4 fracture, initial encounter for closed fracture Kev Pfeiffer. [facility], [address] [place] [address] [address], [place], [address], [place]. tel:[phone] Referring Provider: Marli Sanders, [address], [address]. tel:[phone] Family History Family Member Type Diagnosis Age At Onset Father Problem (finding) Cancer, unknown type Payers Payer name Insurance type Covered libertarian ID Viet dillon(s) [facility] [id number] Social History Type Description Quantity Date Captured [...]
--- OUTSIDE RECORDS SUMMARY | 2024-03-16 16:23 | XMS_ITS | Encounter Summary ---
Author Organization [email or web address] Address [address] [place] [address] Care Team Providers Care Acid Purification Equipment Operator Name Role Phone Unavailable Primary Care Provider Unavailabl e Reason for Visit * Reason Comments WEIGHT LOSS Encounter Details Date Type Department Care Team (Late st Contact Info) Description 02/15/2024 Telephone [facility] [address] [place] [address] Ashely El, RN WEIGHT LOSS Social History [...]
== END 2024-03-16 16:16 | disposition home or self-care (01) ==
PROVIDERS: PCP Family Medicine; Visit Provider Family Medicine
DX: C61 Malignant neoplasm of prostate (principal); G20.A1 Parkinson's disease without dyskinesia, without mention of fluctuations; I10 Essential (primary) hypertension; R63.4 Abnormal weight loss; Z86.39 Personal history of other endocrine, nutritional and metabolic disease
CPT/HCPCS: 80053; 82306; 82607; 82728; 84443; G0103

== ENCOUNTER 2024-03-27 14:44 | Outpatient (CLI) | payer BC, SELFPAY ==
--- OUTSIDE RECORDS SUMMARY | 2024-03-27 14:47 | XMS_ITS | Encounter Summary ---
Author Organization [facility] Address [address] [place] [address] Care Team Providers Care Rn Pediatric Icu Name Role Phone Jamal CARLISLE DO, Robert William Primary Care Provide r Unavailable Desiree Patrick MD Unavailable Farrah Nicole APRN,GEOGRAPHIC INFORMATION SYSTEM ANALYST Unavailable Bry Echevarria MD Unavailable Jamal CARLISLE DO, Robert William Unavailable Unav Stephani Diaz MD Primary Care Provider Shruti Vergara RN Unavailable Unavailable Bianka Loera CNP Primary Care Provider [phone] Desiree Patrick MD Primary Care P rovider Encounter Details Date Type Department Care Team (Late st Contact Info) Description 02/06/2019 HIM Pound Attendant [facility] [address] [address] Rakesh Williamson Chi, MD Social History Tobacco [...] ADULT WITH OR WITHOUT CONTRAST PERFORMED BY: [facility] [place] SITE: [facility] [place] INTERPRETED BY: [facility] [place] TRANSTHORACIC ECHOCARDIOGRAM REPORT REFERRING DIAGNOSIS: Sleep [...] function. Note: This study was performed by [facility] [place]. Only the interpretation was performed at the [facility] [place]. Electronically signed Rakesh Williamson MD Business Liaison Officer , 06:42 A A felipa/Doc#: [id number] cc: Antoine Fitzpatrick MD Adult Normal Value [...] Blood pressure: 139/86 mmHg Previous study: 01/06/2017 R&D Lab Technician: KRISTA documented in this encounter Plan of [...] - 02/06/2019 12:00 AM CDT PERFORMED BY: [facility] [place] SITE: [facility] [place] INTERPRETED BY: [facility] [place] TRANSTHORACIC ECHOCARDIOGRAM REPORT REFERRING DIAGNOSIS: Sleep [...] function. Note: This study was performed by [facility] [facility] [place]. Only theinterpretation was performed at the [facility]. Electronically signed Rakesh Williamson MD Business Liaison Officer , 06:42 A A felipa/Doc#: [id number] cc: Antoine Fitzpatrick MD Adult Normal Value [...] m/s LVOT 2.4 cm PW m/s CWm/s KRAOLINA 2.7 cm2 DVI AI P1/2 T 847Mean [...] Blood pressure: 139/86 mmHg Previous study: 01/06/2017 R&D Lab Technician: KRISTA Antoien Fitzpatrick MD,PHD CAR ULTRASOU [place] documented in this encounter Visit Diagnoses Not on filedocumented in this encounter Care Teams Rn Pediatric Icu Relationship Specialty Start Date End Date Casey Berry II, DO PCP - General 11/22/06 08/17/19 Stephani Aleman MD PCP - General Family Medicine 2/7/20 3/8/21 Bianka Loera, DRIVER MANAGER [address] [place] [phone] PCP - General Nurse Practitioner Family 09/17/20 712/31 Desiree Patrick MD [address] [place] [address] PCP - General Electrophysiology 02/23/22 03/09/22 Desiree Patrick MD [address] [place] [address] 08/09/17 Farrah Nicole APRN,GEOGRAPHIC INFORMATION SYSTEM ANALYST [address] [place] [address] 08/09/17 Bry Echevarria MD [facility] [place] [phone] 08/09/17 Casey Berry II, DO 08/09/17 Shruti Vergara, RN RN Registered Nurse 08/27/20 documented as of this encounter Additional Source Comments PLEASE NOTE: Replies to this message will not be received.[facility]
--- OUTSIDE RECORDS SUMMARY | 2024-03-27 14:47 | XMS_ITS | Encounter Summary ---
Author Organization [employer] Address [address] [place] [address] Care Team Providers Care Nurse Liaison Name Role Phone Jamal CARLISLE DO, Robert William Primary Care Provide r Unavailable Desiree Patrick MD Unavailable Farrah Nicole APRN,HOT TAR ROOFER HELPER Unavailable Bry Echevarria MD Unavailable Jamal CARLISLE DO, Robert William Unavailable Unav Stephani Diaz MD Primary Care Provider Shruti Vergara RN Unavailable Unavailable Bianka Loera CNP Primary Care Provider Desiree Patrick MD Primary Care P rovider Encounter Details Date Type Department Care Team (Late st Contact Info) Description 09/19/2018 Historical Conversion [facility] Family Medicine [address] [place] [address] Trish Barone, PT Social History Tobacco Use [...] by:Trish Barone PT Oct 12 2018 5:27PM HEAVY EQUIPMENT ENGINE MECHANIC AMENDMENTS: 1. Patient received 4 feet of green theraband on this date of service. Electronically signed by:Trish Barone PT Oct 12 2018 5:28PM HEAVY EQUIPMENT ENGINE MECHANIC * Trish Barone, PT - 10/03/2018 12:00 [...] per day with the dogs. He attends [employer] with his 2 times a week. OBJECTIVE: [...] by:Trish Barone PT Oct 03 2018 1:23PM HEAVY EQUIPMENT ENGINE MECHANIC * Trish Barone, PT - 09/19/2018 12:00 AM CDT CRISTIAN BLEDSOE : 1945 HX: [id number] DOS: 09/19/2018 REFERRING PROVIDER: Casey Berry D.O. 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 He is currently [...] PATIENT RECEIVED: Patient received 30 minutes of oeav-vb-vxji evaluation with three or more comorbidities and three or more elements addressed. Clinical presentation is evolving and clinical complexity is moderate. Patient also received canalith repositioning maneuvers on this date. Trish Barone, PT, [place] #[id number] Electronically signed by:Trish Barone PT Sep 26 2018 8:37AM HEAVY EQUIPMENT ENGINE MECHANIC documented in this encounter Plan of Treatment Not on file documented as of this encounter Visit Diagnoses Not on filedocumented in this encounter Care Teams Nurse Liaison Relationship Specialty Start Date End Date Casey Berry II, DO PCP - General 11/22/06 08/17/19 Stephani Aleman MD PCP - General Family Medicine 08/18/19 09/16/20 Bianka Loera CNP [address] [place] [address] [address] [place] [phone] PCP - General Nurse Practitioner Family 09/17/2001/10 Desiree Patrick MD [address] [place] [address] PCP - General Electrophysiology 02/23/22 03/09/22 Desiree Patrick MD [address] [place] [address] 08/09/17 Farrah Nicole APRN,HOT TAR ROOFER HELPER [address] [place] [address] 08/09/17 Bry Echevarria MD [facility] [place] [address] 08/09/17 Casey Berry II, DO 08/09/17 Shruti Vergara RN RN Registered Nurse 08/27/20 documented as of this encounter Additional Source Comments PLEASE NOTE: Replies to this message will not be received.[facility]
--- OUTSIDE RECORDS SUMMARY | 2024-03-27 14:47 | XMS_ITS ---
Author Organization [employer] Address [address] [place] [address] Care Team Providers Care Admitting Interviewer Name Role Phone Desiree Patrick MD Unavailable Farrah Nicole APRN,STRATEGIC CLIENT EXECUTIVE Unavailable Bry Echevarria MD Unavailable Jamal CARLISLE [...] Overview: 4.2 x 4.[address] [facility] CT Atrial flutter 11/15/2015 Esophageal [...]
--- OUTSIDE RECORDS SUMMARY | 2024-03-27 14:47 | XMS_ITS | Encounter Summary ---
Author Organization [employer] Address [address] [place] [address] Care Team Providers Care Environmental Services Floor Tech Name Role Phone Jamal CARLISLE DO, Robert William Primary Care Provide r Unavailable Desiree Patrick MD Unavailable Farrah Nicole APRN,CLINICAL CARE LEADER Unavailable Bry Echevarria MD Unavailable Jamal CARLISLE DO, Robert William Unavailable Unav Stephani Diaz MD Primary Care Provider [phone] Shruti Vergara RN Unavailable Unavailable Bianka Loera CNP Primary Care Provider Desiree Patrick MD Primary Care P rovider Encounter Details Date Type Department Care Team (Late st Contact Info) Description 06/23/2018 Historical Conversion [facility] [facility] Family Medicine [address] [place] [address] Moon Maloney MD Social History Tobacco Use [...] MD - 07/22/2018 12:00 AM CST UROLOGY [facility] CRISTIAN BLEDSOE : 1945 HX: [id number] DOS: 07/22/2018 SUBJECTIVE: Cristian saw me on [...] Moon Maloney M.D./la-15 cc: Casey Berry II, D.O./[facility] Electronically signed by:Moon Maloney M.D. Jul 27 2018 9:15AM EXHIBIT ARTIST * Moon Maloney MD - 06/23/2018 12:00 AM CST UROLOGY CRISTIAN BLEDSOE : [id number] 06/23/2018 SUBJECTIVE: Cristian comes to see me [...] short-term ADT. He is not on any SOFTWARE INTEGRATION DEVELOPER. His most recent PSA was 0.051 so [...] Moon K. Gemar, M.D./mdh-14 cc: [facility] Electronically signed by:Moon Maloney M.D. Jun 24 2018 12:40PM EXHIBIT ARTIST documented in this encounter Plan of Treatment Not on file documented as of this encounter Visit Diagnoses Not on filedocumented in this encounter Care Teams Environmental Services Floor Tech Relationship Specialty Start Date End Date Casey Berry II, DO PCP - General 11/22/06 08/17/19 Stephani Aleman MD PCP - General Family Medicine 08/18/19 09/16/20 Bianka Loera CNP [address] [facility] [address] [place] [phone] PCP - General Nurse Practitioner Family 09/17/2001/10 Desiree Patrick MD [address] [place] [address] PCP - General Electrophysiology 02/23/22 03/09/22 Desiree Patrick MD [address] [place] [address] 08/09/17 Farrah Nicole APRN,CLINICAL CARE LEADER [address] [place] [address] 08/09/17 Bry Echevarria MD [facility] [address] [place] [place] [address] 08/09/17 Casey Berry II, DO 08/09/17 Shruti Vergara RN RN Registered Nurse 08/27/20 documented as of this encounter Additional Source Comments PLEASE NOTE: Replies to this message will not be received.[facility]
--- OUTSIDE RECORDS SUMMARY | 2024-03-27 14:47 | XMS_ITS | Clinical Summary ---
Author Organization [employer] [facility] Address [place], [place] [address] Care Team Providers Care Neck Pinner Name Role Phone Marli Sauceda MD Primary [...] Department Care Team Description 03/09/2024 Orders Only [facility] Scanner 1 scan: (1-Ord) [facility], 03/09/2024 03/09/2024 Orders Only [facility] Scanner 1 scan: (1-Ord) SINUS RHYTHM WITH MARKED SINUS ARRHYTHMIA, 03/09/2024 02/16/2024 1:00 PM CDT Ancillary Procedure [facility] [address] [place] [address] 02/16/2024 Travel 02/15/2024 Telephone [facility] [place] [address] [facility] [address] [place] [address] Kiya Gomes RN Medication Management (Tikosyn/) 01/19/2024 Orders Only [facility] [address] [facility] [address] [place] [address] Fabio Goldstein MD <No scans attached> from [...] [facility] [address] [place] [address] Vic Galvan MD [address] [place] [address] Health Maintenance Due Date Last Done Comments [...] CDT ECHOCARDIOGRAM CRISTIAN BLEDSOE ? Accession#: ?? [id number] : ?1945 78 years Study Date: ?? 02/16/2024 1:17:37 PM Gender: M ?BP: ? 116/68 mmHg Height: 185.00 cm ?BSA: ?2.10 m? ? ? Weight: 86.00 kg ? Tech: ? MSR ? Referring MD: SHYANN GRIGGS Site: ? [facility] Reading Location: Mobile OP Patient Location: Outpatient. [...] . This study was interpreted by an [facility] accredited facility. CC: HIM (med records) [facility]. ??Final ?? Procedure Note Kofi Connolly MD - 02/16/2024 ECHOCARDIOGRAM CRISTIAN BLEDSOE : 1945 78 years Study Date: 02/16/2024 1:17:37 PM Gender: M BP: 116/68 mmHg Height: 185.00 cm BSA: 2.10 m? ? ? Weight: 86.00 kg Tech: MSR Referring MD: SHYANN GRIGGS Site: [facility] Reading Location: Mobile OP Patient [...] . This study was interpreted by an [facility] accredited facility. CC: HIM (med records) [facility]. Final Shyann Griggs MD ECHO ORD from Last 3 Months Care Teams Neck Pinner Relationship Specialty Start Date End Date Marli Sauceda MD [address] [place] [address] PCP - General Family Practice 03/13/22
--- OUTSIDE RECORDS SUMMARY | 2024-03-27 14:47 | XMS_ITS | Encounter Summary ---
Author Organization [employer] Address [address] [place] [address] Care Team Providers Care Director Of Sales Name Role Phone Jamal CARLISLE DO, Robert William Primary Care Provide r Unavailable Desiree Patrick MD Unavailable Farrah Nicole APRN,MILL CONTROLLER Unavailable Bry Echevarria MD Unavailable [phone] Jamal CARLISLE DO, Robert William Unavailable Unav Stephani Diaz MD Primary Care Provider Shruti Vergara RN Unavailable Unavailable Bianka Loera CNP Primary Care Provider Desiree Patrick MD Primary Care P rovider Encounter Details Date Type Department Care Team (Late st Contact Info) Description 06/23/2018 Historical Conversion [facility] Family Medicine [address] [place] [address] Moon Maloney MD Social History Tobacco Use [...] Comments Blood Pressure 120/62 06/23/2018 12:00 AM DRUG SAFETY ASSOCIATE Pulse - - Temperature - - Respiratory Rate - - Oxygen Saturation - - Inhaled Oxygen Concentration - - Weight 93.5 kg (206 lb 2.1 oz) 06/23/2018 12:00 AM DRUG SAFETY ASSOCIATE Height - - Body Mass Index 27.2 06/20/2018 8:23 AM DRUG SAFETY ASSOCIATE documented in this encounter Functional Status [...] in this encounter Care Teams Director Of Sales Relationship Specialty Start Date End Date Casey Berry II, DO PCP - General 11/22/06 08/17/19 Stephani Aleman MD PCP - General Family Medicine 08/18/19 09/16/20 Bianka Loera CNP [address] [facility] [place] [phone] PCP - General Nurse Practitioner Family 09/17/2001/10 [place] [address] [place] [phone] PCP - General Electrophysiology 02/23/22 03/09/22 Desiree Patrick MD [address] [place] [place] [address] 08/09/17 Farrah Nicole APRN,MILL CONTROLLER [address] [place] [place] [address] 08/09/17 Bry Echevarria MD [address] [place] [address] 08/09/17 Casey Berry II, DO 08/09/17 Shruti Vergara RN RN Registered Nurse 08/27/20 documented as of this encounter Additional Source Comments PLEASE NOTE: Replies to this message will not be received.[facility] and [facility]
--- OUTSIDE RECORDS SUMMARY | 2024-03-27 14:47 | XMS_ITS | Referral Summary ---
Author Organization [employer] Address [address] [place] [address] Care Team Providers Care Photograph Finisher Name Role Phone Desiree Patrick MD Unavailable Farrah Nicole APRN,COMMUNITY ORGANIZATION DIRECTOR Unavailable Bry Echevarria MD Unavailable [phone] Jamal CARLISLE DO, Robert William Unavailable Unav [...] ipratropium (ATROVENT) 21 mcg (0.03 %) nasal [place], Non-AerosolIndicatio ns:PND (post-nasal drip) 2 Sprays by [...] 5 mg oral TabletIndications:Pa roxysmal atrial fibrillation (HCC),detention (current) use of anticoagulants TAKE 1 TABLET [...] 11/09/2018 Muscle tightness 11/09/2018 Bilateral foot-drop 11/09/2018 superintendent terminal (current) use of anticoagulants 2018 Encounter for monitoring dofetilide therapy 06/11 Atrial fibrillation (HCC) 06/21/2017 Essential hypertension 10/21/2016 Thoracic ascending aortic aneurysm 06/11/2016 Overview: 4.2 x 4.[address] on [facility] CT Atrial flutter 11/15/2015 Esophageal [...] How often do you attend chur or buddhism services? More than 4 times per year [...] and heating? Not hard at all 04/04/2021 [facility] - Occupational Stress [...] place to sleep or slept in a correction (including now)? No 04/04/2021 Depression (PHQ-9) Answer Date Recorded Last PHQ-9 Score Not on file 08/27/2022 Thoughts of self harm Not at all 08/27/2022 Education Answer Date Recorded What is the highest level of school you have completed or the highest degree you have received? Master's degree (e.g., MA, MS, [place], MEd, SCIENCE INSTRUCTOR, ROHIT) 08/19/2020 Sex and Gender Information [...] HEPATITIS C AB Routine 08/26/2021 10:09 AM HOSPITAL WELLNESS COORDINATOR Need for hepatitis C screening test COLONOSCOPY Routine 02/27/2020 8:05 AM CDT LIPID PANEL Routine 08/18/2019 9:23 AM HOSPITAL WELLNESS COORDINATOR Screening for lipid disorders from Last 3 Months or Most Recently Relevant to Health Maintenance Results * (ABNORMAL) HEPATITIS C AB (08/26/2021 10:09 AM HOSPITAL WELLNESS COORDINATOR) HCV Ab Reactive( A) Nonreactive 08/26/2021 7:41 PM HOSPITAL WELLNESS COORDINATOR [facility] Comment: This is a reportable disease sent to the [facility]. 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 State of associated disease not determined. Blood VENOUS BLOOD / Unknown Venipuncture / Unknown 08/26/2021 10:09 AM HOSPITAL WELLNESS COORDINATOR 08/26/2021 10:09 AM HOSPITAL WELLNESS COORDINATOR Bianka Loera [facility] SEROLOGY ORDERAB LES Performing Organization Address [facility] Co de Phone Number [facility] [address] [place] [address] * COLONOSCOPY (02/27/2020 8:05 AM CDT) 02/27/2020 8:05 AM CDT Narrative [facility] ENDO - 02/27/2020 9:20 AM CDT [facility] Patient Name: Rohan Carroll Procedure Date: 02/27/2020 8:05 AM Date of : 1945 Admit Type: Outpatient Age: 74 Room: [facility] Gender: Male Note Status: Finalized Attending [...] of the bowel preparation was ?excellent. The [id number] was introduced through the anus ?and advanced [...] 8:05 AM Stephani Aleman MD GI PROCEDURES [email or web address] ENDO * (ABNORMAL) LIPID PANEL (08/18/2019 9:23 AM HOSPITAL WELLNESS COORDINATOR) Cholesterol 96 0 - 200 mg/dL 08/18/2019 7:32 PM HOSPITAL WELLNESS COORDINATOR [facility] Triglycerides 65 30 - 150 mg/dL 08/18/2019 7:32 PM HOSPITAL WELLNESS COORDINATOR [facility] Cholesterol, LDL (Calculated) 45 0 - 159 mg/dL 08/18/2019 7:32 PM HOSPITAL WELLNESS COORDINATOR [facility] Cholesterol, HDL 38(L) >40 mg/dL 08/18/19 20 7:32 PM HOSPITAL WELLNESS COORDINATOR [facility] Cholesterol, vLDL 13 mg/dL 020 7:32 PM [facility] Blood VENOUS BLOOD SPECIMEN / Unknown Venipuncture / Unknown 08/18/2019 9:23 AM HOSPITAL WELLNESS COORDINATOR 08/18/2019 9:23 AM HOSPITAL WELLNESS COORDINATOR Stephani Aleman MD LAB CHEMISTRY ORDERA JOSH [facility] [employer] [facility] [address] [place], [place] [phone] from Last 3 Months or Most Recently Relevant to Health Maintenance Advance Directives Documents on File Type Date Recorded Patient Screen Tender Helper Expl anation Advanced Directives 08/23/2014 3:05 PM [facility] * Full Code (Latest Code Status on File) Date Activated Date Inactivated Comments 06/21/2017 3:50 PM 06/24/2017 4:37 PM * Full Code Date Activated Date Inactivated Comments 10/19/2016 4:45 PM 10/20/2016 8:57 PM * Full Code Date Activated Date Inactivated Comments 11/15/2015 11:16 PM 11/16/2015 11:46 AM Care Teams Photograph Finisher Relationship Specialty Start Date End Date Desiree Patrick MD [address] [place] [phone] 08/09/17 Farrah Nicole APRN,COMMUNITY ORGANIZATION DIRECTOR [address] [place] [phone] 08/09/17 Bry Echevarria MD [address] [place] [phone] 08/09/17 Casey Berry II, DO 08/09/17 Shruti Vergara, RN RN Registered Nurse 08/27/20 Additional Source Comments PLEASE NOTE: Replies to this message will not be received.[facility] and [facility]
--- OUTSIDE RECORDS SUMMARY | 2024-03-27 14:47 | XMS_ITS | Encounter Summary ---
Author Organization [employer] Address [address] [place] [address] Care Team Providers Care Licensed Midwife Name Role Phone Jamal CARLISLE DO, Robert William Primary Care Provide r Unavailable Desiree Patrick MD Unavailable Farrah Nicole APRN,MEDICAL REIMBURSEMENT SPECIALIST Unavailable Bry Echevarria MD Unavailable Jamal CARLISLE DO, Robert William Unavailable Unav Stephani Diaz MD Primary Care Provider Shruti Vergara RN Unavailable Unavailable Bianka Loera CNP Primary Care Provider Desiree Patrick MD Primary Care P rovider Encounter Details Date Type Department Care Team (Late st Contact Info) Description 09/08/2018 Historical Conversion [facility] Family Medicine [address] [place] [id number] Casey Berry II, DO Social History Tobacco [...] DAILY CBC; Status:Resulted - Requires Verification; Done: [id number] 09:12AM Comprehensive Metabolic Panel; Status:Resulted - Requires Verification; Done: 17Myy8650 09:12AM Lipid Panel; Status:Resulted - Requires Verification; Done: 08Sep2018 09:12AM Vitamin D Total [facility]; Status:Resulted - Requires Verification; Done: 08Sep2018 09:12AM Ataxia Drawing Fee; Status:Complete; Done: 08Sep2018 Balance Center Consult Consult Only Evaluation and Treatment Status: Hold For - Required information Requested for: [id number] Phone Number to Contact Patient: : See chart to Provider, Practice or Agency: : [facility] Folate; Status:Resulted - Requires Verification; Done: 08Sep2018 [...] 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 HEALTH CARE MAINTENANCE: Colonoscopy in 2009, due in 2019. Current Meds 1. Dofetilide 250 MCG Oral Capsule; TAKE 1 CAPSULE EVERY 12 HOURS; Last Rx:[id number] Ordered 2. Jantoven 5 MG Oral Tablet; TAKE 1 1/2 TABLET BY MOUTH ON WEDNESDAYS, AND 1 TABLET BY MOUTH ALL OTHER DAYS OF THE WEEK DIRECTED; Therapy: 13Apr2018 to (Evaluate:28Sep2018) Requested for: 55Eim3495; Last Rx:[id number] Ordered 3. Lisinopril 10 MG Oral Tablet; TAKE ONE TABLET DAILY; Therapy: 18Oct2017 to Recorded 4. Metoclopramide HCl - 5 MG Oral Tablet; TAKE 1 TABLET BY MOUTH THREE TIMES DAILY WITH MEALS NEEDED; Therapy: 10Sep2014 to (Evaluate:61Azy3791) Requested for: 95Twf3519; Last Rx:[id number] Ordered 5. Oxybutynin Chloride ER 10 MG Oral Tablet Extended Release 24 Hour; TAKE 1 TABLET DAILY; Therapy: 56Qrs4768 to (Evaluate:71Msc5047) Requested for: 24Ajl9314; Last Rx:[id number] Ordered 6. Polyethylene Glycol 3350 Oral Powder; take 17 grams in 8 ounces of fluid once daily as needed for constipation; Therapy: 22Xgp6837 to (Evaluate:27May2018); Last Rx:[id number] Ordered 7. Sildenafil Citrate 100 MG Oral Tablet; Take 1/2-1 tab 1 hour before sexual activity; Therapy: 99Qrj3491 to (Last Rx:[id number]) Requested for: 28Gdo4414 Ordered 8. Triamcinolone Acetonide 0.1 % External Lotion; APPLY 2-3 TIMES DAILY TO AFFECTED AREA(S); Therapy: 57Llr9412 to (Last Rx:[id number]) Requested for: 73Csj7948 Ordered Allergies 1. Penicillins 2. Sulfa Drugs [...] Prostate firm, no masses, nontender. Results/Data CBC [id number] 09:12AM Jamal Casey FASTING Test Name Result [...] 0.9 L 1.0-4.7 Vitamin D Total [facility] [id number] 09:12 Casey Berry Test Name Result Flag Reference Vitamin D Total - [facility] 20.9 ng/ml L 30-100 Deficiency <10ng/mL Insufficiency 10-29 ng/mL Sufficiency 30-100 ng/mL Possible Toxicity >100 ng/mL TSH [id number] 09:12 Casey Berry FASTING Test Name Result Flag Reference TSH 1.670 uIU/ml 0.30-4.70 Vitamin B12 08Sep2018 09:12AM Casey Berry Test Name Result Flag Reference Vitamin B12 382 pg/ml 200-1000 Folate 21Srt4431 09:12AM Casey Berry Test Name Result Flag Reference Folate >20.0 ng/ml H 6.6-19.9 Signatures Casey Berry II, D.Veena/jaj-28 REVISED NOTE 09/12/2018/naomie Electronically signed by : Casey Berry DO; Sep 09 2018 11:14AM STRAIGHTENER Electronically signed by : Casey Berry DO; Sep 12 2018 9:09AM STRAIGHTENER documented in this encounter Plan of Treatment Not on file documented as of this encounter Visit Diagnoses Not on filedocumented in this encounter Care Teams Licensed Midwife Relationship Specialty Start Date End Date Casey Berry II, DO PCP - General 11/22/06 08/17/19 Stephani Aleman MD PCP - General Family Medicine 08/18/19 09/16/20 Bianka Loera UTILITY MANAGER [address] [place] [id number] PCP - General Nurse Practitioner Family 09/17/20 712/31 Desiree Patrick MD [address] [place] [address] PCP - General Electrophysiology 02/23/22 03/09/22 Desiree Patrick MD [address] [place] [address] 08/09/17 Farrah Nicole APRN,MEDICAL REIMBURSEMENT SPECIALIST [address] [place] [address] 08/09/17 Bry Echevarria MD [facility] [place] [address] 08/09/17 Casey Berry II, DO 08/09/17 Shruti Vergara RN RN Registered Nurse 08/27/20 documented as of this encounter Additional Source Comments PLEASE NOTE: Replies to this message will not be received.[facility]
--- OUTSIDE RECORDS SUMMARY | 2024-03-27 14:47 | XMS_ITS | Encounter Summary ---
Author Organization [employer] Address [address] [place] [address] Care Team Providers Care Waiter/Waitress Cabin Class Name Role Phone Jamal CARLISLE DO, Robert William Primary Care Provide r Unavailable Desiree Patrick MD Unavailable Farrah Nicole APRN,RAWHIDE BONE ROLLER Unavailable Bry Echevarria MD Unavailable Jamal CARLISLE DO, Robert William Unavailable Unav Stephani Diaz MD Primary Care Provider Shruti Vergara RN Unavailable Unavailable Bianka Loera CNP Primary Care Provider Desiree Patrick MD Primary Care P rovider Encounter Details Date Type Department Care Team (Late st Contact Info) Description 09/08/[address] [facility] Family Medicine [address] [place] [id number] Casey Berry II, DO Social History Tobacco [...] Comments Blood Pressure 122/74 09/08/2018 12:00 AM PHD INTERNSHIP Pulse - - Temperature - - Respiratory Rate - - Oxygen Saturation - - Inhaled Oxygen Concentration - - Weight 92.8 kg (204 lb 9.7 oz) 09/08/2018 12:00 AM PHD INTERNSHIP Height 184 cm (6' 0.44) 09/08/2018 12:00 AM PHD INTERNSHIP Body Mass Index 27.41 09/08/2018 12:00 AM PHD INTERNSHIP documented in this encounter Functional Status Functional [...] on filedocumented in this encounter Care Teams Waiter/Waitress Cabin Class Relationship Specialty Start Date End Date Casey Berry II, DO PCP - General 11/22/06 08/17/19 Stephani Aleman MD PCP - General Family Medicine 08/18/19 09/16/20 Bianka Loera CNP [address] [facility] [address] [place] [address] PCP - General Nurse Practitioner Family 09/17/2001/10 [place] [address] [place] [address] PCP - General Electrophysiology 02/23/22 03/09/22 Desiree Patrick MD [address] [facility] [place] [address] 08/09/17 Farrah Nicole APRN,RAWHIDE BONE ROLLER [address] [facility] [place] [address] 08/09/17 Bry Echevarria MD [address] [place] [address] [place] [address] 08/09/17 Casey Berry II, DO 08/09/17 Shruti Vergara RN RN Registered Nurse 08/27/20 documented as of this encounter Additional Source Comments PLEASE NOTE: Replies to this message will not be received.[facility] and [facility]
--- OUTSIDE RECORDS SUMMARY | 2024-03-27 14:47 | XMS_ITS | Clinical Summary ---
Author Organization [employer] Address [address] [place] [address] Care Team Providers Care Insulation Worker Furnace Installer Name Role Phone Desiree Patrick MD Unavailable Farrah Nicole APRN,SOFTWARE DESIGNER Unavailable [phone] Bry Echevarria MD Unavailable [phone] Jamal CARLISLE DO, Robert William Unavailable Unav [...] ipratropium (ATROVENT) 21 mcg (0.03 %) nasal [place], Non-AerosolIndicatio ns:PND (post-nasal drip) 2 Sprays by [...] 5 mg oral TabletIndications:Pa roxysmal atrial fibrillation (HCC),group home (current) use of anticoagulants TAKE 1 TABLET [...] 11/09/2018 Muscle tightness 11/09/2018 Bilateral foot-drop 11/09/2018 intermediate card tender (current) use of anticoagulants 2018 Encounter for monitoring dofetilide therapy 06/11 Atrial fibrillation (HCC) 06/21/2017 Essential hypertension 10/21/2016 Thoracic ascending aortic aneurysm 06/11/2016 Overview: 4.2 x 4.[address] [facility] CT Atrial flutter 11/15/2015 Esophageal dysmotility [...] week 04/04/2021 How often do you attend [facility] or spiritism services? More than 4 times per year 04/04/2021 Do you belong to any clubs o r organizations such as samaritan groups, unions, fraternal or athletic groups, or [...] and heating? Not hard at all 04/04/2021 [facility]at ional [facility] - [...] Master's degree (e.g., MA, MS, Mirlande, MEd, FLAT SORTING MACHINE CLERK, ROHIT) 08/19/2020 Sex and Gender Information Value [...] of 3) 03/25/2010 01/28/2010 Depression Screening 08/26/2022 DTaP/Tdap/Td Vaccines (2 - Td or Tdap) 08/21/2023 08/21/2013, 12/26/2002 COVID-19 Vaccine (5 - season) 2024 11/04/2021, 04/29/2021, 09/05/2020, Additional history exists Influenza Vaccine (#1) 2024 , 03/25/2021, 03/12/2020, Additional history exists Lipids Standard [...] HEPATITIS C AB Routine 08/26/2021 10:09 AM COMMODITY LOAN CLERK Need for hepatitis C screening test COLONOSCOPY Routine 02/27/2020 8:05 AM CDT LIPID PANEL Routine 08/18/2019 9:23 AM COMMODITY LOAN CLERK Screening for lipid disorders from Last 3 Months or Most Recently Relevant to Health Maintenance Results * (ABNORMAL) HEPATITIS C AB (08/26/2021 10:09 AM COMMODITY LOAN CLERK) HCV Ab Reactive( A) Nonreactive 08/26/2021 7:41 PM COMMODITY LOAN CLERK [facility] Comment: This is a reportable disease sent to the [place] [facility]. 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 State of associated disease not determined. Blood VENOUS BLOOD / Unknown Venipuncture / Unknown 08/26/2021 10:09 AM COMMODITY LOAN CLERK 08/26/2021 10:09 AM COMMODITY LOAN CLERK Bianka Loera CRYPTOGRAPHY TEACHER LAB SEROLOGY ORDERAB LES [facility] [address] [place] [address] * COLONOSCOPY (02/27/2020 8:05 AM CDT) 02/27/2020 8:05 AM CDT Narrative [facility] END[facility] - 02/27/2020 9:20 AM CDT [facility] Patient Name: Rohan Carroll Procedure Date: 02/27/2020 8:05 AM Date of : 1945 Admit Type: Outpatient Age: 74 Room: [facility] Gender: Male Note Status: Finalized Attending [...] of the bowel preparation was ?excellent. The [id number] was introduced through the anus ?and advanced [...] 8:05 AM Stephani Aleman MD GI PROCEDURES [place] [facility] * (ABNORMAL) LIPID PANEL (08/18/2019 9:23 AM COMMODITY LOAN CLERK) Cholesterol 96 0 - 200 mg/dL 08/18/2019 7:32 PM COMMODITY LOAN CLERK [facility] Triglycerides 65 30 - 150 mg/dL 08/18/2019 7:32 PM [facility] Cholesterol, LDL (Calculated) 45 0 - 159 mg/dL 08/18/2019 7:32 PM [facility] Cholesterol, HDL 38(L) >40 mg/dL 08/18/19 20 7:32 PM [facility] Cholesterol, vLDL 13 mg/dL 020 7:32 PM [facility] Blood VENOUS BLOOD SPECIMEN / Unknown Venipuncture / Unknown 08/18/2019 9:23 AM COMMODITY LOAN CLERK 08/18/2019 9:23 AM COMMODITY LOAN CLERK Stephani Aleman MD LAB CHEMISTRY ORDERA BLES [facility] [address] [place] [address] from Last 3 Months or Most Recently Relevant to Health Maintenance Advance Directives Documents on File Type Date Recorded Patient Timber Sprinkler Expl anation Advanced Directives 08/23/2014 3:05 PM [facility] * Full Code (Latest Code Status on File) Date Activated Date Inactivated Comments 06/21/2017 3:50 PM 06/24/2017 4:37 PM * Full Code Date Activated Date Inactivated Comments 10/19/2016 4:45 PM 10/20/2016 8:57 PM * Full Code Date Activated Date Inactivated Comments 11/15/2015 11:16 PM 11/16/2015 11:46 AM Care Teams Insulation Worker Furnace Installer Relationship Specialty Start Date End Date Desiree Patrick MD [address] [place] [address] 08/09/17 Farrah Nicole APRN,SOFTWARE DESIGNER [address] [place] [address] 08/09/17 Bry Echevarria MD [address] [place] [address] [place] [address] 08/09/17 Casey Berry II, DO 08/09/17 Shruti Vergara RN RN Registered Nurse 08/27/20 Additional Source Comments PLEASE NOTE: Replies to this message will not be received.[facility]
--- OUTSIDE RECORDS SUMMARY | 2024-03-27 14:47 | XMS_ITS | Encounter Summary ---
Author Organization [employer] Address [address] [place] [address] Care Team Providers Care Scale Assembly Set Up Worker Name Role Phone Jamal CARLISLE DO, Robert William Primary Care Provide r Unavailable Desiree Patrick MD Unavailable Farrah Nicole APRN,HOT WORKER Unavailable Bry Echevarria MD Unavailable [phone] Jamal CARLISLE DO, Robert William Unavailable Unav Stephani Diaz MD Primary Care Provider Shruti Vergara RN Unavailable Unavailable Bianka Loera CNP Primary Care Provider [phone] Desiree Patrick MD Primary Care P rovider Encounter Details Date Type Department Care Team (Late st Contact Info) Description 07/22/2018 Historical Conversion [facility] Family Medicine [address] [place] [id number] Moon Maloney MD Social History Tobacco Use [...] Comments Blood Pressure 120/58 07/22/2018 12:00 AM SQUEEGEE TENDER Pulse - - Temperature - - Respiratory Rate - - Oxygen Saturation - - Inhaled Oxygen Concentration - - Weight 93.8 kg (206 lb 12.7 oz) 019 12:00 AM SQUEEGEE TENDER Height - - Body Mass Index 27.28 06/20/2018 8:23 AM SQUEEGEE TENDER documented in this encounter Functional Status [...] on filedocumented in this encounter Care Teams Scale Assembly Set Up Worker Relationship Specialty Start Date End Date Casey Berry II, DO PCP - General 11/22/06 08/17/19 Stephani Aleman MD PCP - General Family Medicine 08/18/19 09/16/20 Bianka Loera CNP [address] [facility] [address] [place] [phone] PCP - General Nurse Practitioner Family 09/17/2001/10 [place] [address] [place] [address] PCP - General Electrophysiology 02/23/22 03/09/22 Desiree Patrick MD [address] [place] [address] 08/09/17 Farrah Nicole APRN,HOT WORKER [address] [place] [address] 08/09/17 Bry Echevarria MD [address] [place] [address] 08/09/17 Casey Berry II, DO 08/09/17 Shruti Vergara RN RN Registered Nurse 08/27/20 documented as of this encounter Additional Source Comments PLEASE NOTE: Replies to this message will not be received.[facility] and [facility]
--- OUTSIDE RECORDS SUMMARY | 2024-03-27 14:47 | XMS_ITS | Encounter Summary ---
Author Organization [facility] [facility] Address [address] [place] [address] Care Team Providers Care Resilient Tile Installer Name Role Phone Desiree Patrick MD Unavailable Farrah Nicole APRN, CNS Unavailable Bry Echevarria MD Unavailable Jamal CARLISLE DO, Robert William Unavailable Unav ailable Shruti Vergara RN Unavailable Unavailable Desiree Patrick MD Primary Care P rovider Encounter Details Date Type Department Care Team (Late st Contact Info) Description 02/25/[address] [id number] Social History Tobacco Use Types Packs/Day Years [...] How often do you attend chur or restorationism services? More than 4 times per year 04/04/2021 Do you belong to any clubs o r organizations such as sabianist groups, unions, fraternal or athletic groups, or [...] and heating? Not hard at all 04/04/2021 [facility] [place] of Occupat ional Health - Occupational Stress [...] Master's degree (e.g., MA, MS, Mirlande, MEd, ELECTROTYPE SERVICER, ROHIT) 08/19/2020 Sex and Gender Information Value [...] on filedocumented in this encounter Care Teams Resilient Tile Installer Relationship Specialty Start Date End Date Desiree Patrick MD [address] [place] [address] PCP - General Electrophysiology 02/23/22 03/09/22 Desiree Patrick MD [address] [place] [address] 08/09/17 Farrah Nicole APRN,ACCOUNTANT BUDGET [address] [place] [address] 08/09/17 Bry Echevarria MD [address] [place] [address] 08/09/17 Casey Berry II, DO 08/09/17 Shruti Vergara RN RN Registered Nurse 08/27/20 documented as of this encounter Additional Source Comments PLEASE NOTE: Replies to this message will not be received.[facility] and [facility]
--- OUTSIDE RECORDS SUMMARY | 2024-03-27 14:48 | XMS_ITS | Encounter Summary ---
Author Organization [employer] Address [address] [place] [address] Care Team Providers Care Supervisor Heading Name Role Phone Jamal CARLISLE DO, Robert William Primary Care Provide r Unavailable Desiree Patrick MD Unavailable Farrah Nicole APRN,LOOP PULLER Unavailable Bry Echevarria MD Unavailable [phone] Jamal CARLISLE DO, Robert William Unavailable Unav Stephani Diaz MD Primary Care Provider Shruti Vergara RN Unavailable Unavailable Bianka Loera CNP Primary Care Provider [phone] Desiree Patrick MD Primary Care P rovider Encounter Details Date Type Department Care Team (Late st Contact Info) Description 07/01/2017 Historical Conversion [facility] Family Medicine [address] [place] [address] Social History Tobacco Use Types Packs/Day Years [...] of this encounter Procedure Notes * [facility] - 06/14/2018 12:00 AM CSTAssociated [...] by:Tiffani Carrero RN Jun 14 2018 7:43PM MORTGAGE LOAN PROCESSING CLERK * [facility] - 05/17/2018 12:00 AM CSTAssociated Order(s): ANTICOAGULATION Anticoagulation Clinic [facility] Name: CRISTIAN BLEDSOE : 1945 DOS: [...] by:Tiffani Carrero RN May 17 2018 11:41AM MORTGAGE LOAN PROCESSING CLERK * [facility] 04/26/2018 12:00 AM CDTAssociated Order(s): ANTICOAGULATION Antico[facility] Name: CRISTIAN BLEDSOE : 1945 DOS: [...] by:Tiffani Carrero RN Apr 26 2018 4:12PM MORTGAGE LOAN PROCESSING CLERK * [facility] - 03/22/2018 12:00 AM CDTAssociated Order(s): ANTICOAGULATION [facility] Name: CRISTIAN BLEDSOE : 1945 DOS: [...] by:Tiffani Carrero RN Mar 22 2018 3:06PM MORTGAGE LOAN PROCESSING CLERK * [facility] - 02/23/2018 12:00 AM CDTAssociated Order(s): ANTICOAGULATION Anticoagulation [facility] Name: CRISTIAN BLEDSOE : 1945 DOS: 02/23/2018 [...] by:Tiffani Carrero RN Feb 23 2018 10:29AM MORTGAGE LOAN PROCESSING CLERK * [facility] - 02/09/2018 12:00 AM CDTAssociated Order(s): ANTICOAGULATION Anticoagulation [facility] Name: CRISTIAN BLEDSOE : 1945 DOS: 02/09/2018 Cristian is a patient of Dr. Berry. He is here today for anticoagulation assessment and INR check for adiagnosis of atrial fibrillation. Patient states that he has been feeling well. He denies any medication changes since his last INR check. Patient reports that he recently took a trip to [place] and forgot to take his Coumadin during the weekend. INR tested today is 1.8 with the recommended range of 2.0 to 3.0. Patient will continue Coumadin at 7.5 mg on Wednesdays and 5 mg all other days withan INR recheck in two weeks. Patient verbalizes understanding. Electronically signed by:Tiffani Carrero RN Feb 09 2018 4:06PM MORTGAGE LOAN PROCESSING CLERK * [facility] - 07/01/2017 12:00 AM CSTAssociated Order(s): ANTICOAGULATION Name: CRISTIAN BLEDSOE : 1945 DOS: 07/01/2017 Cristian is a patient of Dr. Berry. He is here today for anticoagulation assessment and INR check for adiagnosis of atrial fibrillation. Patient was seen in clinic by Dr. Echevarria today post cardioversion. Patient had a cardioversion on 06/24 at [facility] and he reports it went [...] by:Theresa Crowder RN Jul 01 2017 5:02PM MORTGAGE LOAN PROCESSING CLERK documented in this encounter Plan of Treatment Not on file documented as of this encounter Procedures Procedure Name Priority Date/Time Associated Diagnosis Comments ANTICOAGULATION 06/14/2018 ANTICOAGULATION 05/17/2018 ANTICOAGULATION 04/26/2018 ANTICOAGULATION 03/22/2018 ANTICOAGULATION 02/23/2018 ANTICOAGULATION 02/09/2018 ANTICOAGULATION 07/01/2017 documented in this encounter Results * ANTICOAGULATION (06/14/2018) Narrative Procedure Note [facility], MICHELLEPROVIBRANDO - 06/14/2018 12:00 AM CST Name: [...] by:Tiffani Carrero RN Jun 14 2018 7:43PM MORTGAGE LOAN PROCESSING CLERK [facility] OTHER * ANTICOAGULATION (05/17/2018) Narrative Procedure Note [facility] - 05/17/2018 12:00 AM CST Anticoagulation [facility] Name: CRISTIAN BLEDSOE : 1945 DOS: 05/17/2018 [...] by:Tiffani Carrero RN May 17 2018 11:41AM MORTGAGE LOAN PROCESSING CLERK [facility] OTHER * ANTICOAGULATION (04/26/2018) Narrative Procedure Note [facility] - 04/26/2018 12:00 AM CDT Anticoagulation [facility] Name: CRISTIAN BLEDSOE : 1945 DOS: 04/26/2018 [...] by:Tiffani Carrero RN Apr 26 2018 4:12PM MORTGAGE LOAN PROCESSING CLERK [facility] OTHER * ANTICOAGULATION (03/22/2018) Narrative Procedure Note [facility] - 03/22/2018 12:00 AM CDT Anticoagulation [facility] Name: CRISTIAN BLEDSOE : 1945 DOS: 03/22/2018 [...] by:Tiffani Carrero RN Mar 22 2018 3:06PM MORTGAGE LOAN PROCESSING CLERK [facility] OTHER * ANTICOAGULATION (02/23/2018) Narrative Procedure Note [facility] - 02/23/2018 12:00 AM CDT Anticoagulation [facility] Name: CRISTIAN BLEDSOE : 1945 DOS: 02/23/2018 [...] by:Tiffani Carrero RN Feb 23 2018 10:29AM MORTGAGE LOAN PROCESSING CLERK [facility] OTHER * ANTICOAGULATION (02/09/2018) Narrative Procedure Note [facility] - 02/09/2018 12:00 AM CDT Anticoagulation Clinic [facility] Name: CRISTIAN BLEDSOE : 1945 DOS: [...] by:Tiffani Carrero RN Feb 09 2018 4:06PM MORTGAGE LOAN PROCESSING CLERK [facility] OTHER * ANTICOAGULATION (07/01/2017) Narrative Procedure Note [facility] - 07/01/2017 12:00 AM CST Name: CRISTIAN BLEDSOE : 1945 DOS: 07/01/2017 Cristian is a patient of Dr. Berry. He is here today for anticoagulationassessment and INR check for a diagnosis of atrial fibrillation. Patientwas seen in clinic by Dr. Echevarria today post cardioversion. Patient had acardioversion on 06/24 at [facility] and he reports it went [...] by:Theresa Crowder RN Jul 01 2017 5:02PM MORTGAGE LOAN PROCESSING CLERK Genericprovider [facility] OTHER documented in this encounter Visit Diagnoses Not on filedocumented in this encounter Care Teams Supervisor Heading Relationship Specialty Start Date End Date Casey Berry II, DO PCP - General 11/22/06 08/17/19 Stephani Aleman MD PCP - General Family Medicine 08/18/19 09/16/20 Bianka Loera MACHINE CLOTH EXAMINER [address] [facility] [address] [place] [address] PCP - General Nurse Practitioner Family 09/17/2001/10 Desiree Patrick MD [address] [place] [address] PCP - General Electrophysiology 02/23/22 03/09/22 [place] [address] [place] [address] 08/09/17 Farrah Nicole APRN,ALEX [address] [place] [address] 08/09/17 Bry Echevarria MD [address] [place] [address] 08/09/17 Casey Berry II, DO 08/09/17 Shruti Vergara RN RN Registered Nurse 08/27/20 documented as of this encounter Additional Source Comments PLEASE NOTE: Replies to this message will not be received.[facility] and [facility]
--- OUTSIDE RECORDS SUMMARY | 2024-03-27 14:48 | XMS_ITS | Encounter Summary ---
Author Organization [employer] Address [address] [place] [address] Care Team Providers Care Senior Sql Server Dba Name Role Phone Jamal CARLISLE DO, Robert William Primary Care Provide r Unavailable Desiree Patrick MD Unavailable Farrah Nicole APRN,PROCESS MANUFACTURING ENGINEER Unavailable Bry Echevarria MD Unavailable [phone] Jamal CARLISLE DO, Robert William Unavailable Unav Stephani Diaz MD Primary Care Provider [phone] Shruti Vergara RN Unavailable Unavailable Bianka Loera CNP Primary Care Provider Desiree Patrick MD Primary Care P rovider Encounter Details Date Type Department Care Team (Late st Contact Info) Description 03/01/2018 Historical Conversion [facility] Family Medicine [address] [facility] [address] Desiree Rubi PAC [address] [place] [address] Social History Tobacco Use Types [...] Body Mass Index 26.81 09/07/2017 12:00 AM BUSINESS PERFORMANCE ADVISOR documented in this encounter Functional Status Functional [...] CDT UROLOGY CRISTIAN BLEDSOE : 1945 HX: [id number] DOS: 03/01/2018 HISTORY OF PRESENT ILLNESS: This [...] the prostate involving 2%. He also had [place] 7 cancerat the left mid-prostate involving 5% of the tissue. The right mid-prostate had [place] 7 cancer involving 20% of the tissue [...] think he normally sees Farrah Jacobo APRN, PROCESS MANUFACTURING ENGINEER, at the [facility], so we will try to [...] above. ASSESSMENT: 1. 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 He [...] meantime we will check with Cardiology in [place] about the option of Viagra or Cialis [...] P.A.-C./jmf- 24 cc: Jose Winslow M.D./Radiation Oncology [facility] cc: Casey Berry D.O./[facility] cc: Moon Malnoey M.D./[facility] Electronically signed by:Desiree Rubi PA-C Mar 04 2018 1:27PM BUSINESS PERFORMANCE ADVISOR documented in this encounter Plan of Treatment Not on file documented as of this encounter Visit Diagnoses Not on filedocumented in this encounter Care Teams Senior Sql Server Dba Relationship Specialty Start Date End Date Casey Berry II, DO PCP - General 11/22/06 08/17/19 Stephani Aleman MD PCP - General Family Medicine 08/18/19 09/16/20 Bianka Loera MACHINE ADJUSTER HELPER [address] [place] [address] PCP - General Nurse Practitioner Family 09/17/20 712/31 Desiree Patrick MD [address] [place] [address] PCP - General Electrophysiology 02/23/22 03/09/22 Desiree Patrick MD [address] [place] [address] 08/09/17 Farrah Nicole APRN,PROCESS MANUFACTURING ENGINEER [address] [place] [address] 08/09/17 Bry Echevarria MD [facility] [place] [address] 08/09/17 Casey Berry II, DO 08/09/17 Shruti Vergara RN RN Registered Nurse 08/27/20 documented as of this encounter Additional Source Comments PLEASE NOTE: Replies to this message will not be received.[facility] and [facility]
--- OUTSIDE RECORDS SUMMARY | 2024-03-27 14:48 | XMS_ITS | Encounter Summary ---
Author Organization [employer] Address [address] [place] [address] Care Team Providers Care Real Estate Investment Analyst Name Role Phone Jamal CARLISLE DO, Robert William Primary Care Provide r Unavailable Desiree Patrick MD Unavailable Farrah Nicole APRN,SENIOR PROCESS ENGINEER Unavailable Bry Echevarria MD Unavailable Jamal CARLISLE DO, Robert William Unavailable Unav Stephani Diaz MD Primary Care Provider Shruti Vergara RN Unavailable Unavailable Bianka Loera CNP Primary Care Provider [phone] Desiree Patrick MD Primary Care P rovider Encounter Details Date Type Department Care Team (Late st Contact Info) Description 06/13/2018 Historical Conversion [facility] Family [facility] [address] [facility] [place] [address] Bry Echevarria MD [address] [place] [address] Social History Tobacco Use Types [...] AM CST CRISTIAN BLEDSOE : 1945 HX: [id number] DOS: 06/13/2018 SUBJECTIVE: Patient is a 72-year-old [...] Jose Winslow in Radiation Oncology at the [facility]. He has not recently had cystoscopy. He [...] Prostate cancer, status post treatment with radiation. Sutton to be under good control at this [...] return for reevaluation sooner rather than later. Byr Echevarria M.D./ekg-6 cc: Yury Berry DO/[facility] Radha cc: Elder Maloney MD/[facility] [place] cc: Mare Rubi PA-C/[facility] [place]ha cc: Jose Winslow MD/[place] Electronically signed by:Bry Echevarria M.D. Jun 16 2018 2:16PM CLINICAL LAB SCIENTIST documented in this encounter Plan of Treatment Not on file documented as of this encounter Visit Diagnoses Not on filedocumented in this encounter Care Teams Real Estate Investment Analyst Relationship Specialty Start Date End Date Casey Berry II, DO PCP - General 11/22/06 08/17/19 Stephani Aleman MD PCP - General Family Medicine 08/18/19 09/16/20 Bianka Loera PANTOGRAPH TRANSFERRER [address] [place] [phone] PCP - General Nurse Practitioner Family 09/17/2001/10 Desiree Patrick MD [address] [place] [address] PCP - General Electrophysiology 02/23/22 03/09/22 Desiree Patrick MD [address] [place] [address] 08/09/17 Farrah Nicole, SENIOR CARE PROVIDER,SENIOR PROCESS ENGINEER [address] [place] [address] 08/09/17 Bry Echevarria MD [address] [place] [address] 08/09/17 Casey Berry II, DO 08/09/17 Shruti Vergara RN RN Registered Nurse 08/27/20 documented as of this encounter Additional Source Comments PLEASE NOTE: Replies to this message will not be received.[facility] and [facility]
--- OUTSIDE RECORDS SUMMARY | 2024-03-27 14:48 | XMS_ITS | Encounter Summary ---
Author Organization [employer] Address [address] [place] [address] Care Team Providers Care Bottle House Quality Control Technician Name Role Phone Jamal CARLISLE DO, Robert William Primary Care Provide r Unavailable Desiree Patrick MD Unavailable Farrah Nicole APRN,PELT GRADER Unavailable Bry Echevarria MD Unavailable Jamal CARLISLE DO, Robert William Unavailable Unav Stephani Diaz MD Primary Care Provider Shruti Vergara RN Unavailable Unavailable Bianka Loera CNP Primary Care Provider Desiree Patrick MD Primary Care P rovider Encounter Details Date Type Department Care Team (Late st Contact Info) Description 04/06/2017 Historical Conversion [facility] Family Medicine [address] [place] [address] Casey Berry II, DO Social History Tobacco [...] on filedocumented in this encounter Care Teams Bottle House Quality Control Technician Relationship Specialty Start Date End Date Casey Berry II, DO PCP - General 11/22/06 08/17/19 Stephani Aleman MD PCP - General Family Medicine 08/18/19 09/16/20 Bianka Loera CNP [address] [facility] 2 [place] [phone] PCP - General Nurse Practitioner Family 09/17/2001/10 [place] [address] [place] [phone] PCP - General Electrophysiology 02/23/22 03/09/22 Desiree Patrick MD [address] [place] [address] 08/09/17 Farrah Nicole APRN,PELT GRADER [address] [place] [address] 08/09/17 Bry Echevarria MD [address] [place] [address] 08/09/17 Casey Berry II, DO 08/09/17 Shruti Vergara RN RN Registered Nurse 08/27/20 documented as of this encounter Additional Source Comments PLEASE NOTE: Replies to this message will not be received.[facility] and [facility]
--- OUTSIDE RECORDS SUMMARY | 2024-03-27 14:48 | XMS_ITS | Encounter Summary ---
Author Organization [employer] Address [address] [place] [address] Care Team Providers Care Benzol Operator Name Role Phone Jamal CARLISLE DO, Robert William Primary Care Provide r Unavailable Desiree Patrick MD Unavailable Farrah Nicole APRN,BARREL PLATER Unavailable Bry Echevarria MD Unavailable Jamal CARLISLE DO, Robert William Unavailable Unav Stephani Diaz MD Primary Care Provider Shruti Vergara RN Unavailable Unavailable Bianka Loera CNP Primary Care Provider Desiree Patrick MD Primary Care P rovider Encounter Details Date Type Department Care Team (Late st Contact Info) Description 09/07/2017 Historical Conversion [facility] Family Medicine [address] [place] [phone] Casey Berry II, DO Social History Tobacco [...] Bilateral leg pain History of Present Illness Qpegwja-fop-bnex-old male who states that he was shoveling [...] TAKE 1 CAPSULE EVERY 12 HOURS; Last Rx:[id number] Ordered 2. Lisinopril 10 MG Oral Tablet; TAKE ONE TABLET DAILY; Therapy: 18Oct2017 to Recorded 3. Metoclopramide HCl - 5 MG Oral Tablet; TAKE 1 TABLET BY MOUTH THREE TIMES DAILY WITH MEALS NEEDED; Therapy: 10Sep2014 to (Evaluate:29Oct2017) Requested for: 63Pnl4401; Last Rx:[id number] Ordered 4. Polyethylene Glycol 3350 Oral Powder; take 17 grams in 8 ounces of fluid once daily as needed for constipation; Therapy: 63Gcy8794 to (Evaluate:27May2018); Last Rx:[id number] Ordered 5. Triamcinolone Acetonide 0.1 % External Lotion; APPLY 2-3 TIMES DAILY TO AFFECTED AREA(S); Therapy: 24Doh3962 to (Last Rx:[id number]) Requested for: [id number] Ordered 6. Warfarin Sodium 5 MG Oral Tablet; Take as directed by ACC; Therapy: 41Eli8598 to (Evaluate:10Sep2018) Requested for: 15Sep2017 Recorded Allergies [...] Casey Berry DO; Oct 25 2017 10:02AM INTERACTIVE ACCOUNT MANAGER documented in this encounter H&P Notes [...] healthy by no longer smoking.; Status:Complete; Done: 25Smy8511 Reason For Visit Routine history and physical. [...] DAILY; Therapy: 14Apr2017 to (Evaluate:27May2018) Requested for: 03Cbb9139; Last Rx:[id number] Ordered 3. Dofetilide 250 MCG Oral Capsule; TAKE 1 CAPSULE EVERY 12 HOURS; Last Rx:[id number] Ordered 4. Metoclopramide HCl - 5 MG Oral Tablet; TAKE 1 TABLET BY MOUTH THREE TIMES DAILY WITH MEALS NEEDED; Therapy: 10Sep2014 to (Evaluate:29Oct2017) Requested for: 71Kjj6601; Last Rx:[id number] Ordered 5. Metoprolol Tartrate 50 MG Oral Tablet; TAKE 1/2 TABLET TWICE DAILY; Therapy: (Recorded:34Qoi9731) to Recorded 6. Polyethylene Glycol 3350 Oral Powder; take 17 grams in 8 ounces of fluid once daily as needed for constipation; Therapy: 01Jul2017 to (Evaluate:27May2018); Last Rx:[id number] Ordered 7. Warfarin Sodium 5 MG Oral Tablet; Take as directed by [facility]; Therapy: 77Dve4822 to (Evaluate:28May2018) Requested for: 02Jun2017 Recorded Allergies 1. Penicillins 2. Sulfa Drugs PENICILLIN AND SULFA. Immunizations Prevnar in 2016. Pneumovax in 2009. Tetanus in 2013. Shingles in 2009. Vitals Recorded: 59Yno2448 08:20AM Systolic 144 Diastolic 85 Heart Rate [...] Casey Berry DO; Sep 20 2017 7:51AM INTERACTIVE ACCOUNT MANAGER documented in this encounter Plan of Treatment Not on file documented as of this encounter Visit Diagnoses Not on filedocumented in this encounter Care Teams Benzol Operator Relationship Specialty Start Date End Date Casey Berry II, DO PCP - General 11/22/06 08/17/19 Stephani Aleman MD PCP - General Family Medicine 08/18/19 09/16/20 Bianka Loera CNP [address] [place] [address] [address] [place] [phone] PCP - General Nurse Practitioner Family 09/17/2001/10 [place] [address] [place] [phone] PCP - General Electrophysiology 02/23/22 03/09/22 Desiree Patrick MD [address] [place] [address] 08/09/17 Farrah Nicole APRN,BARREL PLATER [address] [place] [address] 08/09/17 Bry Echevarria MD [address] [place] [address] 08/09/17 Casey Berry II, DO 08/09/17 Shruti Vergara RN RN Registered Nurse 08/27/20 documented as of this encounter Additional Source Comments PLEASE NOTE: Replies to this message will not be received.[facility] and [facility]
--- OUTSIDE RECORDS SUMMARY | 2024-03-27 14:48 | XMS_ITS | Encounter Summary ---
Author Organization [employer] Address [address] [place] [address] Care Team Providers Care Welder Metal Fab Name Role Phone Jamal CARLISLE DO, Robert William Primary Care Provide r Unavailable Desiree Patrick MD Unavailable Farrah Nicole APRN,RESEARCH AGRICULTURAL ENGINEER Unavailable Bry Echevarria MD Unavailable Jamal CARLISLE DO, Robert William Unavailable Unav Stephani Diaz MD Primary Care Provider Shruti Vergara RN Unavailable Unavailable Bianka Loera CNP Primary Care Provider Desiree Patrick MD Primary Care P rovider Encounter Details Date Type Department Care Team (Late st Contact Info) Description 07/01/2017 Historical Conversion [facility] [address] [facility] [place] [address] Bry Echevarria MD [address] [place] [address] Social History Tobacco Use Types [...] ap pointment with the anticoagulation clinic in [facility] on July 09, 2017.Follow-[facility] [place] [facility] and updated [facility]. The medicine list was reconciled. History of Present Illness Mr Carroll is a 71-year-old white male who comes to my on-call internal medicine clinic today forfollow-up of her recent hospitalization. His primary care physician is Dr. Berry. The patient was hospitalized in [place] last week and he underwent a cardioversion with the dofetilide. He is now onthat medication twice a day. His INR was slightly elevated at 3.2 when he was up in [place]. He was told to come in today for an INR check. He has not had any problems with bleeding. We did check his anticoagulation and his INR was therapeutic at 2.8. He will follow-up with the anticoagulation clinic in [facility] in 8 days and he will [...] in atrial fibrillation.He is following up with [place] cardiology in 1 month. Allergies 1. Penicillins 2. Sulfa Drugs Vitals Vital Signs Recorded: [id number] 02:41PM Systolic 136, LUE, Sitting Diastolic 70, [...] questions appropriately. Results/Data Results, Free Text - [facility]: is therapeutic at 2.8. Signatures Electronically signed by : Bry Echevarria M.D.; Jul 01 2017 3:31PM MAKE UP WORKER (Author) documented in this encounter Plan of Treatment Not on file documented as of this encounter Visit Diagnoses Not on filedocumented in this encounter Care Teams Welder Metal Fab Relationship Specialty Start Date End Date Casey Berry II, DO PCP - General 11/22/06 08/17/19 Stephani Aleman MD PCP - General Family Medicine 08/18/19 09/16/20 Bianka Loera, MANAGER PLANNING [address] [place] [phone] PCP - General Nurse Practitioner Family 09/17/20 712/31 Desiree Patrick MD [address] [place] [address] PCP - General Electrophysiology 02/23/22 03/09/22 Desiree Patrick MD [address] [place] [address] 08/09/17 Farrah Nicole, BALANCER,[facility] [address] [place] [address] 08/09/17 Bry Echevarria MD [address] [place] [address] [place] [phone] 08/09/17 Casey Berry II, DO 08/09/17 Shruti Vergara, RN RN Registered Nurse 08/27/20 documented as of this encounter Additional Source Comments PLEASE NOTE: Replies to this message will not be received.[facility] and [facility]
--- OUTSIDE RECORDS SUMMARY | 2024-03-27 14:48 | XMS_ITS | Encounter Summary ---
Author Organization [employer] Address [address] [place] [address] Care Team Providers Care Distance Learning Program Coordinator Name Role Phone Jamal CARLISLE DO, Robert William Primary Care Provide r Unavailable Desiree Patrick MD Unavailable Farrah Nicole APRN,AMERICAN SIGN LANGUAGE TEACHER Unavailable Bry Echevarria MD Unavailable [phone] Jamal CARLISLE DO, Robert William Unavailable Unav Stephani Diaz MD Primary Care Provider Shruti Vergara RN Unavailable Unavailable Bianka Loera CNP Primary Care Provider Desiree Patrick MD Primary Care P rovider Encounter Details Date Type Department Care Team (Late st Contact Info) Description 08/31/2017 Historical Conversion [facility] Family Medicine [address] [facility] [place] [address] Desiree Rubi PAC [address] [place] [address] Social History Tobacco Use Types [...] Comments Blood Pressure 112/60 08/31/2017 12:00 AM SPECIAL EDUCATION TUTOR Pulse - - Temperature - - Respiratory Rate - - Oxygen Saturation - - Inhaled Oxygen Concentration - - Weight 95.9 kg (211 lb 6.7 oz) 08/31/2017 12:00 AM SPECIAL EDUCATION TUTOR Height - - Body Mass Index 27.89 07/27/2017 2:42 PM SPECIAL EDUCATION TUTOR documented in this encounter Functional Status Functional [...] on filedocumented in this encounter Care Teams Distance Learning Program Coordinator Relationship Specialty Start Date End Date Casey Berry II, DO PCP - General 11/22/06 08/17/19 Stephani Aleman MD PCP - General Family Medicine 08/18/19 09/16/20 Bianka Loera CNP [address] [place] [address] [address] [place] [address] PCP - General Nurse Practitioner Family 09/17/20 712/31 Desiree Patrick MD [address] [place] [address] PCP - General Electrophysiology 02/23/22 03/09/22 Desiree Patrick MD [address] [place] [address] 08/09/17 Farrah Nicole APRN,AMERICAN SIGN LANGUAGE TEACHER [address] [facility] [address] 08/09/17 Bry Echevarria MD [address] [place] [address] [place] [address] 08/09/17 Casey Berry II, DO 08/09/17 Shruti Vergara RN RN Registered Nurse 08/27/20 documented as of this encounter Additional Source Comments PLEASE NOTE: Replies to this message will not be received.[facility] and [facility]
--- OUTSIDE RECORDS SUMMARY | 2024-03-27 14:48 | XMS_ITS | Encounter Summary ---
Author Organization [employer] Address [address] [place] [address] Care Team Providers Care Java Groovy Developer Name Role Phone Jamal CARLISLE DO, Robert William Primary Care Provide r Unavailable Desiree Patrick MD Unavailable Farrah Nicoel APRN,LAUNDRY ROOM ATTENDANT Unavailable Bry Echevarria MD Unavailable Jamal CARLISLE DO, Robert William Unavailable Unav Stephani Diaz MD Primary Care Provider Shruti Vergara RN Unavailable Unavailable Bianka Loera CNP Primary Care Provider Desiree Patrick MD Primary Care P rovider Encounter Details Date Type Department Care Team (Late st Contact Info) Description 07/01/2017 Historical Conversion [facility] [address] [facility] [place] [address] Bry Echevarria MD [address] [place] [address] Social History Tobacco Use Types [...] Comments Blood Pressure 136/70 07/01/2017 12:00 AM PRISONER CLASSIFICATION INTERVIEWER Pulse - - Temperature - - Respiratory Rate - - Oxygen Saturation - - Inhaled Oxygen Concentration - - Weight 97.6 kg (215 lb 2.7 oz) 07/01/2017 12:00 AM PRISONER CLASSIFICATION INTERVIEWER Height - - Body Mass Index 28.39 06/21/2017 2:27 PM PRISONER CLASSIFICATION INTERVIEWER documented in this encounter Functional Status Functional [...] on filedocumented in this encounter Care Teams Java Groovy Developer Relationship Specialty Start Date End Date Casey Berry II, DO PCP - General 11/22/06 08/17/19 Stephani Aleman MD PCP - General Family Medicine 08/18/19 09/16/20 Bianka Loera CNP [address] [facility] 2 [place] [address] PCP - General Nurse Practitioner Family 09/17/2001/10 Desiree Patrick MD [address] [place] [address] PCP - General Electrophysiology 02/23/22 03/09/22 Desiree Patrick MD [address] [place] [address] 08/09/17 Farrah Nicole APRN,LAUNDRY ROOM ATTENDANT [address] [place] [address] 08/09/17 Bry Echevarria MD [address] [place] [address] [place] [address] 08/09/17 Casey Berry II, DO 08/09/17 Shruti Vergara RN RN Registered Nurse 08/27/20 documented as of this encounter Additional Source Comments PLEASE NOTE: Replies to this message will not be received.[facility] and [facility]
--- OUTSIDE RECORDS SUMMARY | 2024-03-27 14:48 | XMS_ITS | Encounter Summary ---
Author Organization [employer] Address [address] [place] [address] Care Team Providers Care Property Clerk Name Role Phone Jamal CARLISLE DO, Robert William Primary Care Provide r Unavailable Desiree Patrick MD Unavailable Farrah Nicole APRN,MAIL MANAGER Unavailable Bry Echevarria MD Unavailable Jamal CARLISLE DO, Robert William Unavailable Unav Stephani Diaz MD Primary Care Provider Shruti Vergara RN Unavailable Unavailable Bianka Loera CNP Primary Care Provider [phone] Desiree Patrick MD Primary Care P rovider Encounter Details Date Type Department Care Team (Late st Contact Info) Description 06/13/2018 Historical Conversion [facility] Family Medicine [address] [place] [id number] Social History Tobacco Use Types Packs/Day Years [...] * [facility], GENERICPROVIDER - 11/02/2018 12:00 AM [...] week. Joan Everett PTA/Kassy Barone PT, [place] #[id number] Electronically signed by:Joan Everett PTA Nov 02 2018 2:00PM STEWARD/STEWARDESS NIGHT Shelf Filler/Recorder Electronically signed by:Trish Barone PT Nov 07 2018 4:43PM STEWARD/STEWARDESS NIGHT * [facility] - 10/26/2018 12:00 AM [...] by:Joan Everett PTA Oct 28 2018 7:51AM STEWARD/STEWARDESS NIGHT Shelf Filler/Recorder Electronically signed by:Trish Barone PT Oct 31 2018 7:01PM STEWARD/STEWARDESS NIGHT * [facility] - 09/19/2018 12:00 AM CDT PHYSICAL THERAPY STUDENT NOTE BALANCE EVALUATION CRISTIAN BLEDSOE : 1945 HX: [id number] DOS: 09/19/2018 REFERRING PROVIDER: Casey Berry D.O. 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 He is currently [...] PATIENT RECEIVED: Patient received 30 minutes of [id number] evaluation with three or more comorbidities and three or more elements addressed. Clinical presentation is evolving and clinical complexity is moderate. Patient also received canalith repositioning maneuvers on this date. Lennox LEAHY/Trish Barone, PT #[id number] / lb-12 cc: Casey Berry D.O., [facility] Electronically signed by:Lennox Malagon Sep 20 2018 7:56PM STEWARD/STEWARDESS NIGHT Co-author Electronically signed by:Lennox Malagon Sep 27 2018 8:39AM STEWARD/STEWARDESS NIGHT Co-author Electronically signed by:Trish Barone PT Oct 02 2018 5:18PM STEWARD/STEWARDESS NIGHT documented in this encounter Procedure Notes * [facility] - 10/26/2018 12:00 AM CDTAssociated [...] by:Tiffani Carrero RN Oct 26 2018 4:16PM STEWARD/STEWARDESS NIGHT * [facility] - 10/11/2018 12:00 AM CDTAssociated Order(s): ANTICOAGULATION [facility] Name: CRISTIAN BLEDSOE : 1945 [...] by:Tiffani Carrero RN Oct 11 2018 3:39PM STEWARD/STEWARDESS NIGHT * [facility], [facility] - 09/07/2018 12:00 AM CSTAssociated Order(s): ANTICOAGULATION [facility] Name: CRISTIAN BLEDSOE : 1945 [...] by:Tiffani Carrero RN Sep 07 2018 3:31PM STEWARD/STEWARDESS NIGHT * [facility] - 08/22/2018 12:00 AM CSTAssociated Order(s): ANTICOAGULATION Anticoagulation [facility] Name: CRISTIAN BLEDSOE : 1945 DOS: 08/22/2018 [...] by:Tiffani Carrero RN Aug 22 2018 2:48PM STEWARD/STEWARDESS NIGHT * [facility], GENERICPROVIDER - 07/13/2018 12:00 AM CSTAssociated Order(s): ANTICOAGULATION [facility] Name: CRISTIAN BLEDSOE : 1945 [...] by:Tiffani Carrero RN Jul 13 2018 2:41PM STEWARD/STEWARDESS NIGHT * [facility] - 06/13/2018 12:00 AM CSTAssociated Order(s): [...] Deborah Mandel RN; Jun 13 2018 12:37PM STEWARD/STEWARDESS NIGHT documented in this encounter Plan of Treatment Not on file documented as of this encounter Procedures Procedure Name Priority Date/Time Associated Diagnosis Comments ANTICOAGULATION 10/26/2018 ANTICOAGULATION 10/11/2018 ANTICOAGULATION 09/07/2018 ANTICOAGULATION 08/22/2018 ANTICOAGULATION 07/13/2018 ANTICOAGULATION 06/13/2018 documented in this encounter Results * ANTICOAGULATION (10/26/2018) Narrative Procedure Note [facility], [facility] - 10/26/2018 12:00 AM [...] by:Tiffani Carrero RN Oct 26 2018 4:16PM STEWARD/STEWARDESS NIGHT [facility] OTHER * ANTICOAGULATION (10/11/2018) Narrative Procedure Note [facility], GENERICPROGINADER - 10/11/2018 12:00 AM CDT Anticoagulation [facility] Name: CRISTIAN BLEDSOE : 1945 [...] by:Tiffani Carrero RN Oct 11 2018 3:39PM STEWARD/STEWARDESS NIGHT [facility] OTHER * ANTICOAGULATION (09/07/2018) Narrative Procedure Note [facility], [facility] - 09/07/2018 12:00 AM CST Anticoagulation [facility] Name: CRISTIAN BLEDSOE : 1945 DOS: 09/07/2018 [...] by:Tiffani Carrero RN Sep 07 2018 3:31PM STEWARD/STEWARDESS NIGHT [facility] OTHER * ANTICOAGULATION (08/22/2018) Narrative Procedure Note [facility], [facility] - 08/22/2018 12:00 AM CST Anticoagulation [facility] Name: CRISTIAN BLEDSOE : 1945 DOS: 08/22/2018 [...] by:Tiffani Carrero RN Aug 22 2018 2:48PM STEWARD/STEWARDESS NIGHT [facility] OTHER * ANTICOAGULATION (07/13/2018) Narrative Procedure Note [facility] - 07/13/2018 12:00 AM CST Anticoagulation [facility] Name: CRISTIAN BLEDSEO : 1945 DOS: 07/13/2018 Cristian is a [...] by:Tiffani Carrero RN Jul 13 2018 2:41PM STEWARD/STEWARDESS NIGHT [facility] OTHER * ANTICOAGULATION (06/13/2018) Narrative Procedure Note [facility] - 06/13/2018 12:00 AM CST ACC Comments [...] Deborah Mandel RN; Jun 13 2018 12:37PM STEWARD/STEWARDESS NIGHT [facility]provider [facility] OTHER documented in this encounter Visit Diagnoses Not on filedocumented in this encounter Care Teams Property Clerk Relationship Specialty Start Date End Date Casey Berry II, DO PCP - General 11/22/06 08/17/19 Stephani Aleman MD PCP - General Family Medicine 08/18/19 09/16/20 Bianka Loera CNP [address] [place] [id number] PCP - General Nurse Practitioner Family 09/17/2001/10 Desiree Patrick MD [address] [place] [address] PCP - General Electrophysiology 02/23/22 03/09/22 Desiree Patrick MD [address] [place] [address] 08/09/17 Farrah Nicole APRN,MAIL MANAGER [address] [place] [address] 08/09/17 Bry Echevarria MD [facility] [place] [address] 08/09/17 Casey Berry II DO 08/09/17 Shruti Vergara, RN RN Registered Nurse 08/27/20 documented as of this encounter Additional Source Comments PLEASE NOTE: Replies to this message will not be received.[facility] and [facility]
--- OUTSIDE RECORDS SUMMARY | 2024-03-27 14:48 | XMS_ITS | Encounter Summary ---
Author Organization [employer] Address [address] [place] [address] Care Team Providers Care Channeling Machine Operator Name Role Phone Jamal CARLISLE DO, Robert William Primary Care Provide r Unavailable Desiree Patrick MD Unavailable Farrah Nicole APRN,HEEL BREASTER Unavailable Bry Echevarria MD Unavailable Jamal CARLISLE DO, Robert William Unavailable Unav Stephani Diaz MD Primary Care Provider [phone] Shruti Vergara RN Unavailable Unavailable Bianka Loera CNP Primary Care Provider Desiree Patrick MD Primary Care P rovider Encounter Details Date Type Department Care Team (Late st Contact Info) Description 09/07/2017 Historical Conversion [facility] Family Medicine [address] [place] [address] Casey Berry II, DO Social History Tobacco [...] Comments Blood Pressure 144/85 09/07/2017 12:00 AM CLINICAL CYTOGENETICIST Pulse - - Temperature - - Respiratory Rate - - Oxygen Saturation - - Inhaled Oxygen Concentration - - Weight 94.3 kg (207 lb 14.3 oz) 018 12:00 AM CLINICAL CYTOGENETICIST Height 185.5 cm (6' 1.03) 09/07/2017 1 2:00 AM CLINICAL CYTOGENETICIST Body Mass Index 27.4 09/07/2017 12:00 AM CLINICAL CYTOGENETICIST documented in this encounter Functional Status Functional [...] on filedocumented in this encounter Care Teams Channeling Machine Operator Relationship Specialty Start Date End Date Casey Berry II, DO PCP - General 11/22/06 08/17/19 Stephani Aleman MD PCP - General Family Medicine 08/18/19 09/16/20 Bianka Loera CNP [address] [facility] [address] [place] [address] PCP - General Nurse Practitioner Family 09/17/2001/10 [place] [address] [place] [address] PCP - General Electrophysiology 02/23/22 03/09/22 Desiree Patrick MD [address] [place] [address] 08/09/17 Farrah Nicole APRN,HEEL BREASTER [address] [place] [address] 08/09/17 Bry Echevarria MD [address] [place] [address] [place] [address] 08/09/17 Casey Berry II, DO 08/09/17 Shruti Vergara RN RN Registered Nurse 08/27/20 documented as of this encounter Additional Source Comments PLEASE NOTE: Replies to this message will not be received.[facility] and [facility]
--- OUTSIDE RECORDS SUMMARY | 2024-03-27 14:48 | XMS_ITS | Encounter Summary ---
Author Organization [facility] Address [address] [place] [address] Care Team Providers Care Manager Wastewater Name Role Phone Jamal CARLISLE DO, Robert William Primary Care Provide r Unavailable Desiree Patrick MD Unavailable Farrah Nicole APRN,CLIP WRAPPER Unavailable Bry Echevarria MD Unavailable Jamal CARLISLE DO, Robert William Unavailable Unav Stephani Diaz MD Primary Care Provider Shruti Vergara RN Unavailable Unavailable Bianka Loera CNP Primary Care Provider [phone] Desiree Patrick MD Primary Care P rovider Encounter Details Date Type Department Care Team (Late st Contact Info) Description 02/03/2017 Historical Conversion [facility] Family Medicine [address] [place] [id number] Social History Tobacco Use Types Packs/Day Years [...] as of this encounter Procedure Notes * [facility] 12:00 AM CDTAssociated Order(s): ANTICOAGULATION Antico[facility] Name: CRISTIAN BLEDSOE : 1945 [...] by:Tiffani Carrero RN Jan 05 2018 12:21PM RN NIGHT * [facility] 12/21/2017 12:00 AM CDTAssociated Order(s): ANTICOAGULATION Anticoagulation [facility] Name: CRISTIAN BLEDSOE : 1945 [...] by:Tiffani Carrero RN Dec 21 2017 8:31AM RN NIGHT * [facility] - 11/24/2017 12:00 AM CDTAssociated Order(s): ANTICOAGULATION Anticoagulation [facility] Name: CRISTIAN BLEDSOE : 1945 DOS: 11/24/2017 [...] by:Tiffani Carrero RN Nov 24 2017 2:41PM RN NIGHT * [facility] - 10/27/2017 12:00 AM CDTAssociated Order(s): ANTICOAGULATION Anticoagulation [facility] Name: CRISTIAN BLEDSOE : 1945 DOS: 10/27/2017 Cristian is a patient of Dr. Berry. He is here today for anticoagulation assessment and INR check for adiagnosis of atrial fibrillation. Patient states that he has not been feeling well and has been suffering with spinal stenosis. He reports that he has been taking soma for a muscle relaxer. He also reports that his liner machine operator has changed his medications. Patient stales that he is no longer takingany rate control medications. INR tested today is therapeutic at 2.0 with the recommended range of 2.0 to 3.0. He will continue Coumadin at 5 mg daily with an INR recheck in one month, sooner for anychanges. Patient verbalizes understanding. Electronically signed by:Tiffani Carrero RN Oct 28 2017 7:02AM RN NIGHT * [facility] 09/29/2017 12:00 AM CDTAssociated Order(s): ANTICOAGULATION Anticoagulation [facility] Name: CRISTIAN BLEDSOE : 1945 DOS: 09/29/2017 Cristian is a patient of Dr. Berry. He is here today for anticoagulation assessment and INR check for adiagnosis of atrial fibrillation. Patient states that he is feeling well. He denies any changes in medication. Patient reports that he continues to experience bradycardia and is working with his liner machine operator to manage his beta blockers slowly. INR tested today is therapeutic at 2.1 with the recommended range of 2.0 to 3.0. He will continue Coumadin at 5 mg daily with an INR recheck in one month, sooner for any changes. Patient verbalizes understanding. Electronically signed by:Tiffani Carrero RN Sep 29 2017 2:09PM RN NIGHT * [facility] - 09/15/2017 12:00 AM CSTAssociated Order(s): ANTICOAGULATION An[facility] Name: CRISTIAN BLEDSOE : 1945 [...] that Dr. Berry will converse with his liner machine operator to see if they should change some of his heart medications. Patient will call [facility] nurse with any updates. INR tested today is 1.9 with the recommended range of 2.0 to 3.0. He will adjust Coumadin to 5 mg daily with an INR recheck in two weeks. Patient verbalizes understanding. Electronically signed by:Tiffani Carrero RN Sep 15 2017 11:42AM RN NIGHT * [facility] - 08/18/2017 12:00 AM CSTAssociated Order(s): ANTICOAGULATION Anticoagulation [facility] Name: CRISTIAN BLEDSOE : 1945 [...] by:Tiffani Carrero RN Aug 18 2017 6:00PM RN NIGHT * [facility] - 07/09/2017 12:00 AM CSTAssociated Order(s): ANTICOAGULATION Antico[facility] Name: CRISTIAN BLEDSOE : 1945 [...] by:Tiffani Carrero RN Jul 09 2017 11:28AM RN NIGHT * [facility] - 06/16/2017 12:00 AM CSTAssociated Order(s): ANTICOAGULATION [facility] Name: CRISTIAN BLEDSOE : 1945 DOS: 06/16/2017 This is a patient of Dr. Berry. He is here today for an anticoagulation assessment and INR check fora diagnosis of atrial fibrillation. He states that he has been feeling well. Patient denies any recent medication changes. He reports that he needs weekly INR checks per Dr. Patrick at [facility] in preparation for taking dofetilide [...] by:Tiffani Carrero RN Jun 16 2017 4:18PM RN NIGHT * [facility] - 06/09/2017 12:00 AM CSTAssociated Order(s): ANTICOAGULATION Antico[facility] Name: CRISTIAN BLEDSOE : 1945 DOS: 06/09/2017 This is a patient of Dr. Berry. He is here today for an anticoagulation assessment and INR check fora diagnosis of atrial fibrillation. He states that he has been feeling well. Patient denies any recent medication changes. He reports that he needs weekly INR checks per Dr. Patrick at [facility] in preparation for taking dofetilide [...] by:Tiffani Carrero RN Jun 09 2017 3:40PM RN NIGHT * [facility] - 06/02/2017 12:00 AM CSTAssociated Order(s): ANTICOAGULATION Antico[facility] Name: CRISTIAN BLEDSOE : 1945 DOS: 06/02/2017 This is a patient of Dr. Berry. He is here today for an anticoagulation assessment and INR check fora diagnosis of atrial fibrillation. He states that he has been feeling well. Patient denies any recent medication changes. He reports that he will need weekly INR checks per Dr. Patrick at [facility] in preparation for taking dofetilide [...] by:Tiffani Carrero RN Jun 02 2017 9:39AM RN NIGHT AMENDMENTS: 1. current INR and Coumadin dosing. Electronically signed by:Tiffani Carrero RN Jun 09 2017 3:41PM RN NIGHT * [facility] - 05/26/2017 12:00 AM CSTAssociated Order(s): ANTICOAGULATION Antico[facility] Name: CRISTIAN BLEDSOE : 1945 DOS: 05/26/2017 This is a patient of Dr. Berry. He is here today for an anticoagulation assessment and INR check fora diagnosis of atrial fibrillation. He states that he has been feeling well. Patient denies any recent medication changes. He reports that he will need weekly INR checks per Dr. Patrick at [facility] in preparation for taking dofetilide [...] by:Tiffani Carrero RN May 26 2017 9:42AM RN NIGHT * [facility] - 05/19/2017 12:00 AM CSTAssociated Order(s): ANTICOAGULATION Antico[facility] Name: CRISTIAN BLEDSOE : 1945 DOS: 05/19/2017 This is a patient of Dr. Berry. He is here today for an anticoagulation assessment and INR check fora diagnosis of atrial fibrillation. He states that he has been feeling well. Patient denies any recent medication changes. He reports that he will need weekly INR checks per Dr. Patrick at [facility] in preparation for taking dofetilide [...] by:Tiffani Carrero RN May 19 2017 3:13PM RN NIGHT * [facility] - 05/14/2017 12:00 AM CDTAssociated Order(s): ANTICOAGULATION Email communication received from patient today: ALLAN Vera, RN [facility] (direct phone) [phone] Per our phone conversation of yesterday afternoon, I will be having an initiation of Tikosyn (Dofetilide) at [facility] beginning on June 21. To prepare for this, my liner machine operator,Dr. Desiree Patrick, has requested INR lab reports demonstrating 4 to 5 weeks of INR levels between 2.5 and 3 prior to the initiation of Tikosyn. Would you please fax my INR lab reports for the month of May to Tamika, Dr. Patrick???s nurse, at (fax) [phone]? The phone number for Dr. Patrick is [phone]. As we discussed, I will come in for INR testing each Wednesday morning at 9:30 AM to meet this requirement. Thank you, Anurag Bledsoe Electronically signed by:Tiffani Carrero RN May 14 2017 9:46AM RN NIGHT * [facility] - 05/10/2017 12:00 AM CDTAssociated Order(s): ANTICOAGULATION An[facility] Name: CRISTIAN BLEDSOE : 1945 DOS: 05/10/2017 This is a patient of Dr. Berry. He is here today for an anticoagulation assessment and INR check fora diagnosis of atrial fibrillation. He states that he has been feeling well. Patient denies any recent medication changes. He reports that he will need weekly INR checks per Dr. Patrick at [facility] in preparation for taking dofetilide [...] by:Tiffani Carrero RN May 10 2017 3:11PM RN NIGHT * [facility] - 04/06/2017 12:00 AM CDTAssociated Order(s): ANTICOAGULATION Anticoagulation [facility] Name: CRISTIAN BLEDSOE : 1945 [...] by:Tiffani Carrero RN Apr 06 2017 12:37PM RN NIGHT * [facility] - 03/03/2017 12:00 AM CDTAssociated Order(s): ANTICOAGULATION An[facility] Name: CRISTIAN BLEDSOE : 1945 [...] He will have INR checked in the [place] lab prior to his appointment with Dr. Maloney. Patient verbalized understanding. Electronically signed by:Tiffani Carrero RN Mar 03 2017 12:02PM RN NIGHT * [facility] - 02/03/2017 12:00 AM CDTAssociated Order(s): ANTICOAGULATION An[facility] Name: CRISTIAN BLEDSOE : 1945 [...] by:Tiffani Carrero RN Feb 03 2017 10:11AM RN NIGHT documented in this encounter Plan of [...] Results * ANTICOAGULATION (01/05/2018) Narrative Procedure Note [facility] - 01/05/2018 12:00 AM CDT Anticoagulation [facility] Name: CRISTIAN BLEDSOE : 1945 DOS: 01/05/2018 [...] by:Tiffani Carrero RN Jan 05 2018 12:21PM RN NIGHT [facility] OTHER * ANTICOAGULATION (12/21/2017) Narrative Procedure Note [facility] - 12/21/2017 12:00 AM CDT Anticoagulation [facility] Name: CRISTIAN BLEDSOE : 1945 DOS: 12/21/2017 [...] by:Tiffani Carrero RN Dec 21 2017 8:31AM RN NIGHT [facility] OTHER * ANTICOAGULATION (11/24/2017) Narrative Procedure Note [facility] - 11/24/2017 12:00 AM CDT Anticoagulation [facility] Name: CRISTIAN BLEDSOE : 1945 DOS: 11/24/2017 [...] changes. Patient verbalizes understanding. Electronically signed by:Tiffani aCrrero RN Nov 24 2017 2:41PM RN NIGHT [facility] OTHER * ANTICOAGULATION (10/27/2017) Narrative Procedure Note [facility] - 10/27/2017 12:00 AM CDT Anticoagulation [facility] Name: CRISTIAN BLEDSOE : 1945 DOS: 10/27/2017 Cristian is a patient of Dr. Berry. He is here today for anticoagulationassessment and INR check for a diagnosis of atrial fibrillation. Patientstates that he has not been feeling well and has been suffering withspinal stenosis. He reports that he has been taking soma for a musclerelaxer. He also reports that his liner machine operator has changed hismedications. Patient stales that he is no longer taking any rate controlmedications. INR tested today is therapeutic at 2.0 with the recommendedrange of 2.0 to 3.0. He will continue Coumadin at 5 mg daily with an INRrecheck in one month, sooner for any changes. Patient verbalizesunderstanding. Electronically signed by:Tiffani Carrero RN Oct 28 2017 7:02AM RN NIGHT [facility] OTHER * ANTICOAGULATION (09/29/2017) Narrative Procedure Note [facility] 09/29/2017 12:00 AM CDT Anticoagulation [facility] Name: CRISTIAN BLEDSOE : 1945 DOS: 09/29/2017 Cristian is a patient of Dr. Berry. He is here today for anticoagulationassessment and INR check for a diagnosis of atrial fibrillation. Patientstates that he is feeling well. He denies any changes in medication.Patient reports that he continues to experience bradycardia and is workingwith his liner machine operator to manage his beta blockers slowly. INR testedtoday is therapeutic at 2.1 with the recommended range of 2.0 to 3.0. Hewill continue Coumadin at 5 mg daily with an INR recheck in one month,sooner for any changes. Patient verbalizes understanding. Electronically signed by:Tiffani Carrero RN Sep 29 2017 2:09PM RN NIGHT [facility] OTHER * ANTICOAGULATION (09/15/2017) Narrative Procedure Note [facility] - 09/15/2017 12:00 AM CST Anticoagulation Clinic [facility] Name: CRISTIAN BLEDSOE : 1945 [...] statesthat Dr. Berry will converse with his liner machine operator to see if they shouldchange some of his heart medications. Patient will call [facility] nurse with anyupdates. INR tested today is 1.9 with the recommended range of 2.0 to 3.0.He will adjust Coumadin to 5 mg daily with an INR recheck in two weeks.Patient verbalizes understanding. Electronically signed by:Tiffani Carrero RN Sep 15 2017 11:42AM RN NIGHT [facility] OTHER * ANTICOAGULATION (08/18/2017) Narrative Procedure Note [facility] - 08/18/2017 12:00 AM CST Anticoagulation [facility] Name: CRISTIAN BLEDSOE : 1945 DOS: 08/18/2017 [...] by:Tiffani Carrero RN Aug 18 2017 6:00PM RN NIGHT [facility] OTHER * ANTICOAGULATION (07/09/2017) Narrative Procedure Note [facility] - 07/09/2017 12:00 AM CST Anticoagulation [facility] Name: CRISTIAN BLEDSOE : 1945 DOS: 07/09/2017 [...] by:Tiffani Carrero RN Jul 09 2017 11:28AM RN NIGHT [facility] OTHER * ANTICOAGULATION (06/16/2017) Narrative Procedure Note [facility] - 06/16/2017 12:00 AM CST [facility]ticoagulation [facility] Name: CRISTIAN BLEDSOE : 1945 DOS: 06/16/2017 This is a patient of Dr. Berry. He is here today for an anticoagulationassessment and INR check for a diagnosis of atrial fibrillation. He statesthat he has been feeling well. Patient denies any recent medicationchanges. He reports that he needs weekly INR checks per Dr. Patrick [facility] in preparation for taking dofetilide [...] by:Tiffani Carrero RN Jun 16 2017 4:18PM RN NIGHT [facility] OTHER * ANTICOAGULATION (06/09/2017) Narrative Procedure Note [facility] - 06/09/2017 12:00 AM CST [facility]tico[facility] Name: CRISTIAN BLEDSOE : 1945 DOS: 06/09/2017 This is a patient of Dr. Berry. He is here today for an anticoagulationassessment and INR check for a diagnosis of atrial fibrillation. He statesthat he has been feeling well. Patient denies any recent medicationchanges. He reports that he needs weekly INR checks per Dr. Patrick [facility] in preparation for taking dofetilide [...] by:Tiffani Carrero RN Jun 09 2017 3:40PM RN NIGHT Genericprovider [facility] OTHER * ANTICOAGULATION (06/02/2017) Narrative Procedure Note [facility] - 06/02/2017 12:00 AM CST Anticoagulation [facility] Name: CRISTIAN BLEDSOE : 1945 DOS: 06/02/2017 This is a patient of Dr. Berry. He is here today for an anticoagulationassessment and INR check for a diagnosis of atrial fibrillation. He statesthat he has been feeling well. Patient denies any recent medicationchanges. He reports that he will need weekly INR checks per Dr. Valencai [facility] in preparation for taking dofetilide [...] by:Tiffani Carrero RN Jun 02 2017 9:39AM RN NIGHT AMENDMENTS: 1. current INR and Coumadin dosing. Electronically signed by:Tiffani Carrero RN Jun 09 2017 3:41PM RN NIGHT [facility] * [facility] (05/26/2017) Narrative Procedure Note [facility] - 05/26/2017 12:00 AM CST Anticoagulation [facility] Name: CRISTIAN BLEDSOE : 1945 DOS: 05/26/2017 This is a patient of Dr. Berry. He is here today for an anticoagulationassessment and INR check for a diagnosis of atrial fibrillation. He statesthat he has been feeling well. Patient denies any recent medicationchanges. He reports that he will need weekly INR checks per Dr. Valencia [facility] in preparation for taking dofetilide [...] by:Tiffani Carrero RN May 26 2017 9:42AM RN NIGHT [facility] * [facility] (05/19/2017) Narrative [facility] 05/19/2017 12:00 AM CST Anticoagulation [facility] Name: CRISTIAN BLEDSOE : 1945 DOS: 05/19/2017 This is a patient of Dr. Berry. He is here today for an anticoagulationassessment and INR check for a diagnosis of atrial fibrillation. He statesthat he has been feeling well. Patient denies any recent medicationchanges. He reports that he will need weekly INR checks per Dr. Valencia [facility] in preparation for taking dofetilide [...] by:Tiffani Carrero RN May 19 2017 3:13PM RN NIGHT Genericprovider [facility] OTHER * ANTICOAGULATION (05/14/2017) Narrative Procedure Note [facility] - 05/14/2017 12:00 AM CDT Email communication received from patient today: ALLAN Vera, RN [facility] (direct phone) [phone] Per our phone conversation of yesterday afternoon, I will be having aninitiation of Tikosyn (Dofetilide) at [facility] beginning June 21. To prepare for this, my liner machine operator, Dr. Serra, has requested INR lab reports demonstrating 4 to 5 weeks ofINR levels between 2.5 and 3 prior to the initiation of Tikosyn. Would you please fax my INR lab reports for the month of May Oneil, Dr. Patrick? s nurse, at (fax) [phone]? The phone numberfor Dr. Patrick is [phone]. As we discussed, I will come in for INR testing each Wednesday morning at9:30 AM to meet this requirement. Thank you, Anurag Premapura Electronically signed by:Tiffani Carrero RN May 14 2017 9:46AM RN NIGHT [facility] OTHER * ANTICOAGULATION (05/10/2017) Narrative Procedure Note [facility] - 05/10/2017 12:00 AM CDT Anticoagulation [facility] Name: CRISTIAN BLEDSOE : 1945 DOS: 05/10/2017 This is a patient of Dr. Berry. He is here today for an anticoagulationassessment and INR check for a diagnosis of atrial fibrillation. He statesthat he has been feeling well. Patient denies any recent medicationchanges. He reports that he will need weekly INR checks per Dr. Valencia [facility] in preparation for taking dofetilide [...] by:Tiffani Carrero RN May 10 2017 3:11PM RN NIGHT [facility] OTHER * ANTICOAGULATION (04/06/2017) Narrative Procedure Note [facility] - 04/06/2017 12:00 AM CDT Anticoagulation [facility] Name: CRISTIAN BLEDSOE : 1945 DOS: 04/06/2017 [...] by:Tiffani Carrero RN Apr 06 2017 12:37PM RN NIGHT [facility] OTHER * ANTICOAGULATION (03/03/2017) Narrative Procedure Note [facility] - 03/03/2017 12:00 AM CDT Anticoagulation [facility] Name: CRISTIAN BLEDSOE : 1945 DOS: 03/03/2017 [...] changes. He willhave INR checked in the [place] lab prior to his appointment with . Patient verbalized understanding. Electronically signed by:Tiffani Carrero RN Mar 03 2017 12:02PM RN NIGHT [facility] OTHER * ANTICOAGULATION (02/03/2017) Narrative Procedure Note [facility] - 02/03/2017 12:00 AM CDT Anticoagulation [facility] Name: CRISTIAN BLEDSOE : 1945 DOS: 02/03/2017 [...] by:Tiffani Carrero RN Feb 03 2017 10:11AM RN NIGHT Genericprovider [facility] OTHER documented in this encounter Visit Diagnoses Not on filedocumented in this encounter Care Teams Manager Wastewater Relationship Specialty Start Date End Date Casey Berry II, DO PCP - General 11/22/06 08/17/19 Stephani Aleman MD PCP - General Family Medicine 08/18/19 09/16/20 Bianka Loera CNP [address] [place] [address] [address] [place] [address] PCP - General Nurse Practitioner Family 09/17/2001/10 Desiree Patrick MD [address] [place] [address] PCP - General Electrophysiology 02/23/22 03/09/22 Desiree Patrick MD [address] [place] [address] 08/09/17 Farrah Nicole APRN,CLIP WRAPPER [address] [id number] 08/09/17 Bry Echevarria MD [address] [place] [phone] 08/09/17 Casey Berry II, DO 08/09/17 Shruti Vergara RN RN Registered Nurse 08/27/20 documented as of this encounter Additional Source Comments PLEASE NOTE: Replies to this message will not be received.[facility]
--- OUTSIDE RECORDS SUMMARY | 2024-03-27 14:48 | XMS_ITS | Encounter Summary ---
Author Organization [employer] Address [address] [place] [address] Care Team Providers Care Black Puller Name Role Phone Jamal CARLISLE DO, Robert William Primary Care Provide r Unavailable Desiree Patrick MD Unavailable Farrah Nicole APRN,ARTIST'S MANAGER Unavailable [phone] Bry Echevarria MD Unavailable Jamal CARLISLE DO, Robert William Unavailable Unav Stephani Diaz MD Primary Care Provider Shruti Vergara RN Unavailable Unavailable Bianka Loera CNP Primary Care Provider Desiree Patrick MD Primary Care P rovider Encounter Details Date Type Department Care Team (Late st Contact Info) Description 03/30/2017 Historical Conversion [facility] Family Medicine [address] [facility] [place] [address] Desiree Rubi PAC [address] [place] [address] Social History Tobacco Use [...] on filedocumented in this encounter Care Teams Black Puller Relationship Specialty Start Date End Date Casey Berry II, DO PCP - General 11/22/06 08/17/19 Stephani Aleman MD PCP - General Family Medicine 08/18/19 09/16/20 Bianka Loera CNP [address] [place] [address] [address] [place] [address] PCP - General Nurse Practitioner Family 09/17/20 712/31 Desiree Patrick MD [address] [place] [address] PCP - General Electrophysiology 02/23/22 03/09/22 Desiree Patrick MD [address] [place] [address] 08/09/17 Farrah Nicole APRN,ARTIST'S MANAGER [address] [place] [address] 08/09/17 Bry Echevarria MD [address] [place] [id number] 08/09/17 Casey Berry II, DO 08/09/17 Shruti Vergara RN RN Registered Nurse 08/27/20 documented as of this encounter Additional Source Comments PLEASE NOTE: Replies to this message will not be received.[facility]
--- OUTSIDE RECORDS SUMMARY | 2024-03-27 14:48 | XMS_ITS | Encounter Summary ---
Author Organization [employer] Address [address] [place] [address] Care Team Providers Care Lumber Carrier Name Role Phone Jamal CARLISLE DO, Robert William Primary Care Provide r Unavailable Desiree Patrick MD Unavailable Farrah Nicole APRN,ASSISTANT STATISTICIAN Unavailable Bry Echevarria MD Unavailable Jamal CARLISLE DO, Robert William Unavailable Unav Stephani Diaz MD Primary Care Provider Shruti Vergara RN Unavailable Unavailable Bianka Loera CNP Primary Care Provider Desiree Patrick MD Primary Care P rovider Encounter Details Date Type Department Care Team (Late st Contact Info) Description 10/18/2017 Historical Conversion [facility] Family Medicine [address] [place] [address] Casey Berry II, DO Social History Tobacco [...] Body Mass Index 27.09 09/07/2017 12:00 AM SALICYLIC ACID BLENDER documented in this encounter Functional Status Functional [...] on filedocumented in this encounter Care Teams Lumber Carrier Relationship Specialty Start Date End Date Casey Berry II, DO PCP - General 11/22/06 08/17/19 Stephani Aleman MD PCP - General Family Medicine 08/18/19 09/16/20 Bianka Loera CNP [address] [facility] [address] [place] [phone] PCP - General Nurse Practitioner Family 09/17/2001/10 [place] [address] [place] [address] PCP - General Electrophysiology 02/23/22 03/09/22 Desiree Patrick MD [address] [place] [address] 08/09/17 Farrah Nicole APRN,ASSISTANT STATISTICIAN [address] [place] [address] 08/09/17 Bry Echevarria MD [address] [place] [address] 08/09/17 Casey Berry II, DO 08/09/17 Shruti Vergara RN RN Registered Nurse 08/27/20 documented as of this encounter Additional Source Comments PLEASE NOTE: Replies to this message will not be received.[facility] and [facility]
--- OUTSIDE RECORDS SUMMARY | 2024-03-27 14:48 | XMS_ITS | Encounter Summary ---
Author Organization [employer] Address [address] [place] [address] Care Team Providers Care Senior Process Engineer Name Role Phone Jamal CARLISLE DO, Robert William Primary Care Provide r Unavailable Desiree Patrick MD Unavailable Farrah Nicole APRN,OVERCOILER Unavailable Bry Echevarria MD Unavailable Jamal CARLISLE DO, Robert William Unavailable Unav Stephani Diaz MD Primary Care Provider Shruti Vergara RN Unavailable Unavailable Bianka Loera CNP Primary Care Provider Desiree Patrick MD Primary Care P rovider Encounter Details Date Type Department Care Team (Late st Contact Info) Description 06/25/2017 Historical Conversion [facility] Family Medicine [address] [place] [address] Social History Tobacco Use Types Packs/Day Years [...] as of this encounter Progress Notes * [facility], GENERICPROVIDER - 06/25/2017 12:00 AM CST Medication Reconciliation Post Discharge Name: CRISTIAN BLEDSOE Date of Discharge: 06/24/2017 Current Meds 1. Digoxin 125 MCG Oral Tablet; Therapy: (Recorded:[id number]) to Recorded 2. DilTIAZem HCl - 60 MG Oral Tablet; TAKE 1 TABLET BY MOUTH DAILY; Therapy: 14Apr2017 to (Evaluate:[id number]) Requested for: [id number] Recorded 3. Dofetilide 250 MCG Oral Capsule; TAKE 1 CAPSULE TWICE DAILY; Therapy: (Recorded:[id number]) to Recorded 4. Metoclopramide HCl - 5 MG Oral Tablet (Reglan); TAKE 1 TABLET BY MOUTH THREE TIMES DAILY WITH MEALS; Therapy: 10Sep2014 to (Evaluate:17Sep2017) Requested for: 20May2017; Last Rx:20May2017 Ordered 5. Metoprolol Tartrate 50 MG Oral Tablet; TAKE 1 TABLET TWICE DAILY; Therapy: (Recorded:[id number]) to Recorded 6. Tylenol Extra Strength 500 MG Oral Tablet; Therapy: (Recorded:[id number]) to Recorded 7. Warfarin Sodium 5 MG Oral Tablet (Coumadin); Take as directed by [facility]; Therapy: [id number] to (Evaluate:28May2018) Requested for: 02Jun2017 Recorded Medication [...] checked next week. Reviewed 24 hour manager loss prevention line, when to call PCP, and when to call 911. Patient voiced understanding. STACY Rasheed Follow-Up Recommendations Follow up with the following provider(s): cardiology 1 mo I reviewed with the patient the 24 hour nurse line and ecouraged them to call if they had any questions or concerns. Patient voiced understanding. Signatures Electronically signed by : Emma Estrella RN; Jun 25 2017 11:25AM SENIOR TELECOMMUNICATIONS TECHNICIAN documented in this encounter Plan of Treatment Not on file documented as of this encounter Visit Diagnoses Not on filedocumented in this encounter Care Teams Senior Process Engineer Relationship Specialty Start Date End Date Casey Berry II, DO PCP - General 11/22/06 08/17/19 Stephani Aleman MD PCP - General Family Medicine 08/18/19 09/16/20 Bianka Loera CNP [address] [facility] 2 [place] [address] PCP - General Nurse Practitioner Family 09/17/20 7/12/31 Desiree Patrick MD [address] [place] [facility] [place] [address] PCP - General Electrophysiology 02/23/22 03/09/22 Desiree Patrick MD [address] [place] [facility] [place] [address] 08/09/17 Farrah Nicole APRN,OVERCOILER [address] [place] [facility] [place] [address] 08/09/17 Bry Echevarria MD [facility] [address] [place] [address] 08/09/17 Casey Berry II, DO 08/09/17 Shruti Vergara RN RN Registered Nurse 08/27/20 documented as of this encounter Additional Source Comments PLEASE NOTE: Replies to this message will not be received.[facility] and [facility]
--- OUTSIDE RECORDS SUMMARY | 2024-03-27 14:48 | XMS_ITS | Encounter Summary ---
Author Organization [employer] Address [address] [place] [address] Care Team Providers Care Teaching Manager Name Role Phone Jamal CARLISLE DO, Robert William Primary Care Provide r Unavailable Desiree Patrick MD Unavailable aFrrah Nicole APRN,[employer] SYSTEMS ADMINISTRATOR Unavailable [phone] Bry Echevarria MD Unavailable [phone] Jamal CARLISLE DO, Robert William Unavailable Unav Stephani Diaz MD Primary Care Provider Shruti Vergara RN Unavailable Unavailable Bianka Loera CNP Primary Care Provider [phone] Desiree Patrick MD Primary Care P rovider Encounter Details Date Type Department Care Team (Late st Contact Info) Description 06/13/2018 Historical Conversion [facility] Family [facility] [address] [facility] [place] [address] Bry Echevarria MD [address] [place] [address] Social History Tobacco Use Types [...] Comments Blood Pressure 120/78 06/13/2018 12:00 AM DEAF INTERPRETER Pulse - - Temperature - - Respiratory Rate - - Oxygen Saturation - - Inhaled Oxygen Concentration - - Weight 93.8 kg (206 lb 12.7 oz) 018 12:00 AM DEAF INTERPRETER Height - - Body Mass Index 27.29 05/18/2018 8:54 AM DEAF INTERPRETER documented in this encounter Functional Status Functional [...] on filedocumented in this encounter Care Teams Teaching Manager Relationship Specialty Start Date End Date Casey Berry II, DO PCP - General 11/22/06 08/17/19 Stephani Aleman MD PCP - General Family Medicine 08/18/19 09/16/20 Bianka Loera CNP [address] [place] [address] 2 [place] [address] PCP - General Nurse Practitioner Family 09/17/2001/10 Desiree Patrick MD [address] [place] [address] PCP - General Electrophysiology 02/23/22 03/09/22 Desiree Patrick MD [address] [place] [address] 08/09/17 Farrah Nicole APRN,[employer] SYSTEM[employer] ADMINISTRATOR [address] [place] [address] 08/09/17 Bry Echevarria MD [address] [place] [address] 08/09/17 Casey Berry II, DO 08/09/17 Shruti Vergara RN RN Registered Nurse 08/27/20 documented as of this encounter Additional Source Comments PLEASE NOTE: Replies to this message will not be received.[facility] and [facility]
--- OUTSIDE RECORDS SUMMARY | 2024-03-27 14:49 | XMS_ITS | Encounter Summary ---
Author Organization [employer] Address [address] [place] [address] Care Team Providers Care Customs Patrol Officer Name Role Phone Jamal CARLISLE DO, Robert William Primary Care Provide r Unavailable Desiree Patrick MD Unavailable Farrah Nicole APRN,BIOMEDICAL EQUIPMENT TECHNICIAN Unavailable Bry Echevarria MD Unavailable [phone] Jamal CARLISLE DO, Robert William Unavailable Unav Stephani Diaz MD Primary Care Provider [phone] Shruti Vergara RN Unavailable Unavailable Bianka Loera CNP Primary Care Provider [phone] Desiree Patrick MD Primary Care P rovider Encounter Details Date Type Department Care Team (Late st Contact Info) Description 10/17/[address] [facility] Family Medicine [address] [place] [address] Social History Tobacco Use Types Packs/Day Years [...] as of this encounter Nursing Notes * [facility], GENERICPROVIDER - 10/17/2016 12:00 AM CDT Rohan presented to Urgent Care with complaint of feeling like his heart is racing, he can feel it pounding and a tighness in his chest occurs when this happens. He was seen at [facility] 10 days ago for an episode [...] to be evaluatedin the Emergency Room at [facility]. Patient and his elected to go by private car with patients driving. Electronically signed by:Tammy Coronado RN Oct 17 2016 2:09PM SERVICE STATION EQUIPMENT MECHANIC AMENDMENTS: 1. Patient declines shortness of breath, radiating neck pain, shoulderblade pain or sternal pain. Electronically signed by:Tammy Coronado RN Oct 17 2016 2:14PM SERVICE STATION EQUIPMENT MECHANIC documented in this encounter Plan of Treatment Not on file documented as of this encounter Visit Diagnoses Not on filedocumented in this encounter Care Teams Customs Patrol Officer Relationship Specialty Start Date End Date Casey Berry II, DO PCP - General 11/22/06 08/17/19 Stephani Aleman MD PCP - General Family Medicine 08/18/19 09/16/20 Bianka Loera CNP [address] [place] [address] PCP - General Nurse Practitioner Family 09/17/2001/10 Desiree Patrick MD [address] [place] [facility] [place] [address] PCP - General Electrophysiology 02/23/22 03/09/22 Desiree Patrick MD [address] [facility] [place] [address] 08/09/17 Farrah Nicole APRN,BIOMEDICAL EQUIPMENT TECHNICIAN [address] [facility] [place] [address] 08/09/17 Bry Echevarria MD [address] [place] [phone] 08/09/17 Casey Berry II, DO 08/09/17 Shruti Vergara, RN RN Registered Nurse 08/27/20 documented as of this encounter Additional Source Comments PLEASE NOTE: Replies to this message will not be received.[facility] and [facility]
--- OUTSIDE RECORDS SUMMARY | 2024-03-27 14:49 | XMS_ITS | Encounter Summary ---
Author Organization [facility] [employer] [facility] Address [address] [place] [address] Care Team Providers Care Counseling Specialist Name Role Phone Jamal CARLISLE DO, Robert William Primary Care Provide r Unavailable Desiree Patrick MD Unavailable Farrah Nicole APRN,BILINGUAL SPEECH THERAPIST Unavailable Bry Echevarria MD Unavailable [phone] Jamal CARLISLE DO, Robert William Unavailable Unav Stephani Diaz MD Primary Care Provider Shruti Vergara RN Unavailable Unavailable Bianka Loera CNP Primary Care Provider Desiree Patrick MD Primary Care P rovider Encounter Details Date Type Department Care Team (Late st Contact Info) Description 12/31/2016 HIM Assessment Clinician [facility] [address] [address] Gil Solares MD Social History Tobacco Use [...] ADULT WITH OR WITHOUT CONTRAST PERFORMED BY: [employer] [place], [place] SITE: [place], [place] INTERPRETED BY: [facility] [place], [place] TRANSTHORACIC ECHOCARDIOGRAM REPORT REFERRING DIAGNOSIS: Paroxysmal [...] fibrillation. Note: This study was performed by [facility] for [place]. Only the interpretation wasperformed at the [facility] [place]. Electronically signed Gil Solares MD, [facility] Roof Service Technician , 04:45 P A kmg/Doc#: [id number] cc: Adult Normal Value Adult Patient Values [...] Blood pressure: 116/81 mmHg Previous study: 11/19/15 Director Of Rooms: WAT[place]G documented in this encounter Plan of [...] - 12/31/2016 12:00 AM CDT PERFORMED BY: [employer] [place], [place] SITE: [place], [place] INTERPRETED BY: [facility] [place], [place] TRANSTHORACIC ECHOCARDIOGRAM REPORT REFERRING DIAGNOSIS: Paroxysmal [...] fibrillation. Note: This study was performed by [facility] for [place].Only the interpretation was performed at the [facility]. Electronically signed Gil Solares MD, [facility] Roof Service Technician , 04:45 P A taylag/Doc#: [id number] cc: Adult Normal Value Adult Patient Values [...] dt 254 ms E' sept 6.04 cm/sec PRRL380 ms E/e' 10 E' lat 9.65 cm/sec IMPRESSION: Patient height: 185 cm Patient weight: 94 kg Blood pressure: 116/81 mmHg Previous study: 11/19/15 Director Of Rooms: HIEU Desiree NICHOLS documented in this encounter Visit Diagnoses Not on filedocumented in this encounter Care Teams Counseling Specialist Relationship Specialty Start Date End Date Casey Berry II, DO PCP - General 11/22/06 08/17/19 Stephani Aleman MD PCP - General Family Medicine 08/18/19 09/16/20 Bianka Loera, [employer] [address] [place] [phone] PCP - General Nurse Practitioner Family 09/17/20 712/31 Desiree Patrick MD [address] [place] [address] PCP - General Electrophysiology 02/23/22 03/09/22 Desiree Patrick MD [address] [place] [address] 08/09/17 Farrah Nicole APRN,BILINGUAL SPEECH THERAPIST [address] [place] [address] 08/09/17 Bry Echevarria MD [address] [place] [address] 08/09/17 Casey Berry II, DO 08/09/17 Shruti Vergara RN RN Registered Nurse 08/27/20 documented as of this encounter Additional Source Comments PLEASE NOTE: Replies to this message will not be received.[facility] and [facility]
--- OUTSIDE RECORDS SUMMARY | 2024-03-27 14:49 | XMS_ITS | Encounter Summary ---
Author Organization [employer] Address [address] [place] [address] Care Team Providers Care Hot Metal Car Operator Name Role Phone Jamal CARLISLE DO, Robert William Primary Care Provide r Unavailable Desiree Patrick MD Unavailable Farrah Nicole APRN,PETROLEUM TERMINAL PLANT OPERATOR Unavailable Bry Echevarria MD Unavailable Jamal CARLISLE DO, Robert William Unavailable Unav Stephani Diaz MD Primary Care Provider [phone] Shruti Vergara RN Unavailable Unavailable Bianka Loera CNP Primary Care Provider Desiree Patrick MD Primary Care P rovider Encounter Details Date Type Department Care Team (Late st Contact Info) Description 03/10/2016 Historical Conversion [facility] Family Medicine [address] [place] [address] Casey Berry II, DO Social History Tobacco [...] on filedocumented in this encounter Care Teams Hot Metal Car Operator Relationship Specialty Start Date End Date Casey Berry II, DO PCP - General 11/22/06 08/17/19 Stephani Aleman MD PCP - General Family Medicine 08/18/19 09/16/20 Bianka Loera CNP [address] [place] [phone] PCP - General Nurse Practitioner Family 09/17/2001/10 [place] [address] [place] [address] PCP - General Electrophysiology 02/23/22 03/09/22 Desiree Patrick MD [address] [place] [address] 08/09/17 Farrah Nicole APRN,[facility] [address] [place] [address] 08/09/17 Bry Echevarria MD [facility] [place] [address] 08/09/17 Casey Berry II, DO 08/09/17 Shruti Vergara RN RN Registered Nurse 08/27/20 documented as of this encounter Additional Source Comments PLEASE NOTE: Replies to this message will not be received.[facility] and [facility]
--- OUTSIDE RECORDS SUMMARY | 2024-03-27 14:49 | XMS_ITS | Encounter Summary ---
Author Organization [employer] Address [address] [place] [address] Care Team Providers Care Vehicle Sales Professional Name Role Phone Jamal CARLISLE DO, Robert William Primary Care Provide r Unavailable Desiree Patrick MD Unavailable Farrah Nicole APRN,DELIVERY DRIVER/SUPERVISOR Unavailable [phone] Bry Echevarria MD Unavailable [phone] Jamal CARLISLE DO, Robert William Unavailable Unav Stephani Diaz MD Primary Care Provider Shruti Vergara RN Unavailable Unavailable Bianka Loera CNP Primary Care Provider Desiree Patrick MD Primary Care P rovider Encounter Details Date Type Department Care Team (Late st Contact Info) Description 10/26/2016 Historical Conversion [facility] Family Medicine [address] [place] [address] Casey Berry II, DO Social History Tobacco [...] on filedocumented in this encounter Care Teams Vehicle Sales Professional Relationship Specialty Start Date End Date Casey Berry II, DO PCP - General 11/22/06 08/17/19 Stephani Aleman MD PCP - General Family Medicine 08/18/19 09/16/20 Bianka Loera CNP [address] [place] [address] 2 [place] [phone] PCP - General Nurse Practitioner Family 09/17/2001/10 [place] [address] [place] [address] PCP - General Electrophysiology 02/23/22 03/09/22 Desiree Patrick, MD [address] [place] [address] 08/09/17 Farrah Nicole APRN,[facility] [address] [place] [address] 08/09/17 Bry Echevarria MD [address] [place], [place] [address] [address] 08/09/17 Casey Berry II, DO 08/09/17 Shruti Vergara RN RN Registered Nurse 08/27/20 documented as of this encounter Additional Source Comments PLEASE NOTE: Replies to this message will not be received.[facility] and [facility]
--- OUTSIDE RECORDS SUMMARY | 2024-03-27 14:49 | XMS_ITS | Encounter Summary ---
Author Organization [employer] Address [address] [place] [address] Care Team Providers Care Gravedigger Name Role Phone Jamal CARLISLE DO, Robert William Primary Care Provide r Unavailable Desiree Patrick MD Unavailable Farrah Nicole APRN,HEALTH AIDE Unavailable Bry Echevarria MD Unavailable Jamal CARLISLE DO, Robert William Unavailable Unav Stephani Diaz MD Primary Care Provider Shruti Vergara RN Unavailable Unavailable Bianka Loera CNP Primary Care Provider [phone] Desiree Patrick MD Primary Care P rovider Encounter Details Date Type Department Care Team (Late st Contact Info) Description 09/02/2016 Historical Conversion [facility] [address] [place] [address] Casey El II, DO Social History Tobacco [...] Comments Blood Pressure 151/81 09/02/2016 12:00 AM MARRIAGE THERAPIST Pulse - - Temperature - - Respiratory Rate - - Oxygen Saturation - - Inhaled Oxygen Concentration - - Weight 93.5 kg (206 lb 2.1 oz) 09/02/2016 12:00 AM MARRIAGE THERAPIST Height 185.1 cm (6' 0.87) 09/02/2016 12:00 AM Saúl WARE Body Mass Index 27.29 09/02/2016 12:00 AM MARRIAGE THERAPIST documented in this encounter Functional Status Functional [...] as needed; Therapy: 10Sep2014 to Requested for: [id number] Recorded 7. Metoprolol Tartrate 50 MG Oral Tablet; TAKE 1 TABLET TWICE DAILY; Therapy: (Recorded:21Oct2016) to Recorded 8. Tylenol Extra Strength 500 MG Oral Tablet; Therapy: (Recorded:18Nov2015) to Recorded 9. Warfarin Sodium 5 MG Oral Tablet; Take as directed by [facility]; Therapy: 38Wna2846 to (Evaluate:01Pfh3600) Requested for: 86Mdn4500; Last Rx:13Ibr9310 Ordered Allergies 1. Penicillins 2. Sulfa Drugs [...] Casey El DO; Apr 16 2017 8:13AM MARRIAGE THERAPIST * Casey El II, DO - 11/30/2016 [...] healthy by no longer smoking.; Status:Complete; Done: 89Pnj6396 Counseling Total time of encounter was 20 [...] first. At this point in time, the [employer] has not stated that he a risk [...] as needed; Therapy: 10Sep2014 to Requested for: 51Rsb6313 Recorded 4. Metoprolol Tartrate 50 MG Oral Tablet; TAKE 1 TABLET TWICE DAILY; Therapy: (Recorded:21Oct2016) to Recorded 5. Tylenol Extra Strength 500 MG Oral Tablet; Therapy: (Recorded:18Nov2015) to Recorded 6. Warfarin Sodium 5 MG Oral Tablet; Take as directed by [facility]; Therapy: 46Tok8557 to (Evaluate:12Nov2017) Requested for: 17Nov2016 Recorded Allergies 1. Penicillins 2. Sulfa Drugs Vitals Recorded: 30Nov2016 10:12AM Systolic 121 Diastolic 83 Heart Rate 106 Respiration 20 Temperature 98 F Weight 94.2 kg BMI Calculated 27.49 BSA Calculated 2.18 O2 Saturation 97 Physical Exam Deferred. Signatures Casey El II, D.OWilliam/pj-30 Electronically signed by : Casey El DO; Dec 09 2016 1:14PM MARRIAGE THERAPIST * Casey lE II, DO - 10/26/2016 12:00 AM CDT Assessment 1. Former smoker: 0 - 10 pack years (V15.82) (Z87.891) Atrial fibrillation/flutter. Plan Awaiting Holter monitor to see what is going to be done next with the [employer] and most likely,Electrophysiology. We finally did get the results from the Holter which showed flutter and they will send him to see the [employer]. Reason For Visit patient in for hospital [...] Extra Strength 500 MG Oral Tablet; Therapy: (Recorded:42Jgw6262) to Recorded 6. Warfarin Sodium 5 MG Oral Tablet; Take as directed by [facility]; Therapy: 43Enw0717 to (Evaluate:75Xfq4240) Requested for: 14Jul2016 Recorded Allergies 1. Penicillins 2. Sulfa Drugs Vitals Recorded: 89Tso3488 10:40AM Systolic 117, RUE, Sitting Diastolic 73, [...] Casey El DO; Nov 06 2016 8:45AM MARRIAGE THERAPIST documented in this encounter H&P Notes * [...] Panel; Status:Hold For - Manual Activation; Requested for:88Doj2096; Hemoglobin A1C; Status:Hold For - Manual Activation; Requested for:55Ufr8560; SocHx: Former smoker: 0 - 10 pack years Former Smoker: Since tobacco use can have significant health risks, you are helping yourself and others stay healthy by no longer smoking.; Status:Complete; Done: 14Qum8546 Reason For Visit H & P History [...] alcohol. 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 Colonoscopy in 2009. Pneumovax 2009. Prevnar 2015. Current Meds 1. Lisinopril 10 MG Oral Tablet; TAKE 1 TABLET BY MOUTH ONCE DAILY; Therapy: 63Xuq2137 to (Evaluate:82Khp4677) Requested for: 13Jul2016; Last Rx:13Jul2016 Ordered 2. Metoclopramide HCl - 5 MG Oral Tablet; TAKE 1 TABLET as needed; Therapy: 10Sep2014 to Requested for: 02Sep2016 Recorded 3. Metoprolol Tartrate 25 MG Oral Tablet; 1 prn a fib; Therapy: (Recorded:02Sep2016) to Requested for: 02Sep2016 Recorded 4. Tylenol Extra Strength 500 MG Oral Tablet; Therapy: (Recorded:77Qgd0976) to Recorded 5. Warfarin Sodium 5 MG Oral Tablet; Take as directed by [facility]; Therapy: 28Jan2016 to (Evaluate:38Zzr1469) Requested for: 14Jul2016 Recorded Allergies 1. Penicillins [...] rash. /RECTAL: Done by urology. Results/Data PHQ-9 32Ltt2982 12:00AM Casey El Test Name Result Flag Reference PHQ-9 0 Alcohol & Drug Questionnaire for Adults 85Ilb0996 12:00AM Casey El Test Name Result Flag Reference Alcohol & Drug Questionnaire for Adults 3 Nurse Note Pt given heel cups by dr el. #54907 qty 2. mquam teletype operator Recorded as Task Date: 09/14/2016 01:01 PM, Created By: CHERELLE GOMEZ Task Name: Go To Noteform Note Assigned To: CHERELLE GOMEZ Regarding Patient: CRISTIAN BLEDSOE, Status: Active Comment: CHERELLE GOMEZ - 14 Sep 2016 1:[address] Jamal Mendoza gave the patient 2 heel cups. I need a dx for them to bill. Please call if you have any questions! Cherelle Goemz [facility] #[id number] Kelly Walls - 15 Sep 2016 7:16 AM TASK REASSIGNED: Previously Assigned To Kelly Walls Michelle - 15 Sep 2016 9:00 AM TASK REASSIGNED: Previously Assigned To Casey El per dr el- dx plantar fasciitis M72.2 thanks. mquam teletype operator Signatures Casey El II D.Veena/la-3 Electronically signed by : Casey El DO; Sep 11 2016 1:25PM MARRIAGE THERAPIST Electronically signed by : Casey El DO; Sep 16 2016 12:34PM MARRIAGE THERAPIST documented in this encounter Plan of Treatment Not on file documented as of this encounter Visit Diagnoses Not on filedocumented in this encounter Care Teams Gravedigger Relationship Specialty Start Date End Date Casey El II, DO PCP - General 11/22/06 08/17/19 Stephani Aleman MD PCP - General Family Medicine 08/18/19 09/16/20 Bianka Loera ACCOUNTS PAYABLE COORDINATOR [address] [facility] [address] [place] [address] PCP - General Nurse Practitioner Family 09/17/20 7/2 12/31 Desiree Patrick MD [address] [place] [address] PCP - General Electrophysiology 02/23/22 03/09/22 Desiree Patrick MD [address] [place] [address] 08/09/17 Farrah Nicole APRN,HEALTH AIDE [address] [place] [address] 08/09/17 Bry Echevarria MD [address] [place] [address] [place] [address] 08/09/17 Casey El II, DO 08/09/17 Shruti Vergara, RN RN Registered Nurse 08/27/20 documented as of this encounter Additional Source Comments PLEASE NOTE: Replies to this message will not be received.[facility]
--- OUTSIDE RECORDS SUMMARY | 2024-03-27 14:49 | XMS_ITS | Encounter Summary ---
Author Organization [employer] Address [address] [place] [address] Care Team Providers Care Automatic Folder Seamer Name Role Phone Jamal CARLISLE DO, Robert William Primary Care Provide r Unavailable Desiree Patrick MD Unavailable Farrah Nicole APRN,DE ICER FINISHER Unavailable Bry Echevarria MD Unavailable [phone] Jamal CARLISLE DO, Robert William Unavailable Unav Stephani Diaz MD Primary Care Provider Shruti Vergara RN Unavailable Unavailable Bianka Loera CNP Primary Care Provider Desiree Patrick MD Primary Care P rovider Encounter Details Date Type Department Care Team (Late st Contact Info) Description 08/27/2016 Historical Conversion [facility] Family Medicine [address] [place] [address] Moon Maloney MD Social History Tobacco Use [...] Comments Blood Pressure 175/101 08/27/2016 12:00 AM SERVICE PARTS COORDINATOR Pulse - - Temperature - - Respiratory Rate - - Oxygen Saturation - - Inhaled Oxygen Concentration - - Weight 95.7 kg (210 lb 15.7 oz) 017 12:00 AM SERVICE PARTS COORDINATOR Height - - Body Mass Index [...] on filedocumented in this encounter Care Teams Automatic Folder Seamer Relationship Specialty Start Date End Date Casey Berry II, DO PCP - General 11/22/06 08/17/19 Stephani Aleman MD PCP - General Family Medicine 08/18/19 09/16/20 Bianka Loera CNP [address] [place] [phone] PCP - General Nurse Practitioner Family 09/17/2001/10 [place] [address] [place] [address] PCP - General Electrophysiology 02/23/22 03/09/22 Desiree Patrick MD [address] [place] [address] 08/09/17 Farrah Nicole APRN,[facility] [address] [place] [address] 08/09/17 Bry Echevarria MD [address] [place] [address] [place] [address] 08/09/17 Casey Berry II, DO 08/09/17 Shruti Vergara RN RN Registered Nurse 08/27/20 documented as of this encounter Additional Source Comments PLEASE NOTE: Replies to this message will not be received.[facility]placed By [facility]
--- OUTSIDE RECORDS SUMMARY | 2024-03-27 14:49 | XMS_ITS | Encounter Summary ---
Author Organization [employer] Address [address] [place] [address] Care Team Providers Care Bulb Packer Name Role Phone Jamal CARLISLE DO, Robert William Primary Care Provide r Unavailable Desiree Patrick MD Unavailable Farrah Nicole APRN,PATIENT SUPPORT TECH Unavailable [phone] Bry Echevarria MD Unavailable Jamal CARLISLE DO, Robert William Unavailable Unav Stephani Diaz MD Primary Care Provider Shruti Vergara RN Unavailable Unavailable Bianka Loera CNP Primary Care Provider Desiree Patrick MD Primary Care P rovider Encounter Details Date Type Department Care Team (Late st Contact Info) Description 10/17/2016 Historical Conversion [facility] Family Medicine [address] [place] [address] Social History Tobacco Use Types Packs/Day Years [...] do you have serious difficulty hearing? Yes-slightly SUN'AQ 10/17/2016 Are you blind or do you [...] on filedocumented in this encounter Care Teams Bulb Packer Relationship Specialty Start Date End Date Casey Berry II, DO PCP - General 11/22/06 08/17/19 Stephani Aleman MD PCP - General Family Medicine 08/18/19 09/16/20 Bianka Loera CNP [address] [place] [phone] PCP - General Nurse Practitioner Family 09/17/2001/10 [place] [address] [place] [address] PCP - General Electrophysiology 02/23/22 03/09/22 Desiree Patrick MD [address] [place] [address] 08/09/17 Farrah Nicole APRN,[facility] [address] [place] [address] 08/09/17 Bry Echevarria MD [address] [place] [address] [place] [address] 08/09/17 Casey Berry II, DO 08/09/17 Shruti Vergara RN RN Registered Nurse 08/27/20 documented as of this encounter Additional Source Comments PLEASE NOTE: Replies to this message will not be received.[facility]
--- OUTSIDE RECORDS SUMMARY | 2024-03-27 14:49 | XMS_ITS | Encounter Summary ---
Author Organization [employer] Address [address] [place] [address] Care Team Providers Care Hospice Fellow Name Role Phone Jamal CARLISLE DO, Robert William Primary Care Provide r Unavailable Desiree Patrick MD Unavailable Farrah Nicole APRN,YARD OPERATOR Unavailable Bry Echevarria MD Unavailable Jamal CARLISLE DO, Robert William Unavailable Unav Stephani Diaz MD Primary Care Provider Shruti Vergara RN Unavailable Unavailable Bianka Loera CNP Primary Care Provider Desiree Patrick MD Primary Care P rovider Encounter Details Date Type Department Care Team (Late st Contact Info) Description 01/31/[address] [facility] Family Medicine [address] [place] [id number] Social History Tobacco Use Types Packs/Day Years [...] as of this encounter Procedure Notes * [facility] - 01/14/2017 12:00 AM CDTAssociated Order(s): [...] by:Tiffani Carrero RN Jan 14 2017 11:11AM WELFARE CASE WORKER * [facility] MICHELLE[facility]OV[facility]RANDO - 12/23/2016 12:00 AM CDTAssociated Order(s): [...] by:Tiffani Carrero RN Dec 23 2016 11:30AM WELFARE CASE WORKER * [facility], GENERICPROVIDER - 12/02/2016 12:00 AM CDTAssociated [...] by:Tiffani Carrero RN Dec 02 2016 4:10PM WELFARE CASE WORKER * [facility], GENERICPROVIDER - 11/17/2016 12:00 AM CDTAssociated [...] has an appointment next week with an software sales manager to discuss a possible ablation. Patient denies any medication changes. INR tested today is therapeutic at 2.7 with the recommended range of 2.0 to 3.0. Patient will continue Coumadin at 5 mg daily with an INR recheck in two weeks. Patient verbalizes understanding. Electronically signed by:Tiffani Carrero RN Nov 17 2016 9:36AM WELFARE CASE WORKER * [facility] [email or web address] - 11/10/2016 12:00 AM CDTAssociated Order(s): ANTICOAGULATION [...] by:Tiffani Carrero RN Nov 10 2016 2:41PM WELFARE CASE WORKER * [facility] GENERICPROVIDER - 10/29/2016 12:00 AM CDTAssociated Order(s): ANTICOAGULATION Anticoagulation [facility] Name: CRISTIAN BLEDSOE : 1945 DOS: 10/29/2016 [...] by:Tiffani Carrero RN Oct 29 2016 3:44PM WELFARE CASE WORKER * [email or web address] - 10/23/2016 12:00 AM CDTAssociated Order(s): ANTICOAGULATION [facility] Name: CRISTIAN BLEDSOE : 1945 DOS: 10/23/2016 This is a patient of Dr. Berry. He is taking anticoagulation for a diagnosis of atrial fibrillation.He is scheduled for a prostate biopsy today at the [facility] with Dr. Maloney. Patient had his INR checked in the [facility] lab prior to his procedure today. [...] by:Tiffani Carrero RN Oct 26 2016 9:49AM WELFARE CASE WORKER * [facility] - 10/13/2016 12:00 AM [...] have his INR checked at the [facility] prior to his biopsy which is [...] by:Tiffani Carrero RN Oct 13 2016 12:13PM WELFARE CASE WORKER AMENDMENTS: 1. Patient states that he was in the [facility] ER on October 08 with a [...] by:Tiffani Carrero RN Oct 13 2016 12:36PM WELFARE CASE WORKER * [facility], GENERICPROLUBNA - 09/15/2016 12:00 AM CSTAssociated Order(s): ANTICOAGULATION Anticoagulation [facility] Name: CRISTIAN BLEDSOE : 1945 DOS: 09/15/2016 [...] by:Tiffani Carrero RN Sep 15 2016 2:04PM WELFARE CASE WORKER * [facility] - 08/18/2016 12:00 AM CSTAssociated Order(s): ANTICOAGULATION Anticoagulation [facility] Name: CRISTIAN BLEDSOE : 1945 DOS: 08/18/2016 [...] by:Tiffani Carrero RN Aug 18 2016 2:21PM WELFARE CASE WORKER * [facility] GENERICPROVIBRANDO - 07/28/2016 12:00 AM CSTAssociated Order(s): ANTICOAGULATION Anticoagulation [facility] Name: CRISTIAN BLEDSOE : 1945 DOS: 07/28/2016 [...] by:Tiffani Carrero RN Jul 28 2016 11:06AM WELFARE CASE WORKER * [facility], GENERICPROVIDER - 07/14/2016 12:00 AM CSTAssociated Order(s): ANTICOAGULATION Anticoagulation [facility] Name: CRISTIAN BLEDSOE : 1945 DOS: 07/14/2016 [...] by:Tiffani Carrero RN Jul 14 2016 11:21AM WELFARE CASE WORKER * [facility], GENERICPROVIBRANDO - 06/30/2016 12:00 AM CSTAssociated Order(s): ANTICOAGULATION Anticoagulation [facility] Name: CRISTIAN BLEDSOE : 1945 DOS: 06/30/2016 [...] by:Tiffani Carrero RN Jun 30 2016 9:24AM WELFARE CASE WORKER * [facility] - 05/20/2016 12:00 AM CSTAssociated Order(s): ANTICOAGULATION Anticoagulation [facility] Name: CRISTIAN BLEDSOE : 1945 DOS: 05/20/2016 [...] by:Tiffani Carrero RN May 20 2016 3:59PM WELFARE CASE WORKER * [facility] MICHELLEPROGINARBANDO - 04/15/2016 12:00 AM CDTAssociated Order(s): ANTICOAGULATION [...] by:Tiffani Carrero RN Apr 15 2016 5:55PM WELFARE CASE WORKER * [facility] MICHELLEPROVIBRANDO - 03/18/2016 12:00 [...] by:Tiffani Carrero RN Mar 18 2016 9:42AM WELFARE CASE WORKER * [facility] AUST[facility]PROLUBNA - 03/09/2016 12:00 AM [...] Tiffani Carrero RN; Mar 09 2016 9:59AM WELFARE CASE WORKER * [facility] MICHELLEPROVIBRANDO - 02/27/2016 12:00 [...] by:Tiffani Carrero RN Feb 27 2016 12:04PM WELFARE CASE WORKER * [facility] GENERICPROVIBRANDO - 02/12/2016 12:00 AM CDTAssociated [...] by:Tiffani Carrero RN Feb 12 2016 9:02AM WELFARE CASE WORKER * [facility] GENERICPROVIBRANDO - 02/04/2016 12:00 AM CDTAssociated Order(s): ANTICOAGULATION Anticoagulation [facility] Name: CRISTIAN BLEDSOE : 1945 DOS: 02/04/2016 [...] by:Tiffani Carrero RN Feb 04 2016 9:45AM WELFARE CASE WORKER * [facility], GENERICPROVIDER - 01/31/2016 12:00 AM CDTAssociated [...] by:Carlene Hargrove RN Jan 31 2016 2:45PM WELFARE CASE WORKER documented in this encounter Plan of [...] Results * ANTICOAGULATION (01/14/2017) Narrative Procedure Note [facility], GENERICPROVIDER - 01/14/2017 12:00 AM CDT [facility] [...] by:Tiffani Carrero RN Jan 14 2017 11:11AM WELFARE CASE WORKER [facility] OTHER * ANTICOAGULATION (12/23/2016) Narrative Procedure Note [facility], [facility] - 12/23/2016 12:00 AM CDT Anticoagulation [facility] Name: CRISTIAN BLEDSOE : 1945 DOS: 12/23/2016 This is a patient of Dr. Berry. He is here today for an anticoagulationassessment and INR check for a diagnosis of atrial fibrillation. Patientstates that he has been feeling well. He reports that he met with at [facility] and will begin radiation on [...] by:Tiffani Carrero RN Dec 23 2016 11:30AM WELFARE CASE WORKER [facility] OTHER * ANTICOAGULATION (12/02/2016) Narrative Procedure Note [facility] - 12/02/2016 12:00 AM CDT Anticoagulation [facility] Name: CRISTIAN BLEDSOE : 1945 DOS: 12/02/2016 [...] by:Tiffani Carrero RN Dec 02 2016 4:10PM WELFARE CASE WORKER [facility] OTHER * ANTICOAGULATION (11/17/2016) Narrative Procedure Note [facility] - 11/17/2016 12:00 AM CDT Anticoagulation [facility] Name: CRISTIAN BLEDSOE : 1945 DOS: 11/17/2016 [...] by:Tiffani Carrero RN Nov 17 2016 9:36AM WELFARE CASE WORKER [facility] * [facility]TICO[facility]ULATION (11/10/2016) Narrative Procedure Note [facility] - 11/10/2016 12:00 AM CDT Anticoagulation [facility] Name: CRISTIAN BLEDSOE : 1945 DOS: 11/10/2016 This is a patient of Dr. Berry. He is here today for an anticoagulationassessment and INR check for a diagnosis of atrial fibrillation. Patientstates that he has been feeling well. He reports that he has beendiagnosis with prostate cancer and will be meeting with Dr. Conroy at [facility] to find out information regarding radiation therapy. Patientdenies any medication changes. INR tested today is elevated at 3.6 withthe recommended range of 2.0 to 3.0. Patient will adjust Coumadin with ahold today (11/10), then take 5 mg daily with an INR recheck in one week.Patient verbalizes understanding. Electronically signed by:Tiffani Carrero RN Nov 10 2016 2:41PM WELFARE CASE WORKER [facility] OTHER * ANTICOAGULATION (10/29/2016) Narrative Procedure Note [facility] - 10/29/2016 12:00 AM CDT Anticoagulation [facility] Name: CRISTIAN BLEDSOE : 1945 DOS: 10/29/2016 [...] by:Tiffani Carrero RN Oct 29 2016 3:44PM WELFARE CASE WORKER [facility] OTHER * ANTICOAGULATION (10/23/2016) Narrative Procedure Note [facility] - 10/23/2016 12:00 AM CDT Anticoagulation [facility] Name: CRISTIAN BLEDSOE : 1945 DOS: 10/23/2016 This is a patient of Dr. Berry. He is taking anticoagulation for adiagnosis of atrial fibrillation. He is scheduled for a prostate biopsytoday at the [facility] with Dr. Maloney. Patient had his INR checkedin the [facility] lab prior to his procedure today. [...] by:Tiffani Carrero RN Oct 26 2016 9:49AM WELFARE CASE WORKER [facility] OTHER * ANTICOAGULATION (10/13/2016) Narrative Procedure Note [facility] - 10/13/2016 12:00 AM CDT [facility] which [facility] [...] by:Tiffani Carrero RN Oct 13 2016 12:13PM WELFARE CASE WORKER AMENDMENTS: 1. Patient states that he was in the [facility] ER on October 08 with arapid [...] by:Tiffani Carrero RN Oct 13 2016 12:36PM WELFARE CASE WORKER [facility] OTHER * ANTICOAGULATION (09/15/2016) Narrative Procedure Note [facility], [facility] - 09/15/2016 12:00 AM CST [facility] [...] by:Tiffani Carrero RN Sep 15 2016 2:04PM WELFARE CASE WORKER [facility] OTHER * ANTICOAGULATION (08/18/2016) Narrative Procedure Note [facility] - 08/18/2016 12:00 AM CST Anticoagulation [facility] Name: CRISTIAN BLEDSOE : 1945 DOS: 08/18/2016 [...] by:Tiffani Carrero RN Aug 18 2016 2:21PM WELFARE CASE WORKER [facility] OTHER * ANTICOAGULATION (07/28/2016) Narrative Procedure Note [facility] - 07/28/2016 12:00 AM CST Anticoagulation [facility] Name: CRISTIAN BLEDSOE : 1945 DOS: 07/28/2016 [...] by:Tiffani Carrero RN Jul 28 2016 11:06AM WELFARE CASE WORKER [facility] OTHER * ANTICOAGULATION (07/14/2016) Narrative Procedure Note [facility] - 07/14/2016 12:00 AM CST Anticoagulation [facility] Name: CRISTIAN BLEDSOE : 1945 DOS: 07/14/2016 [...] by:Tiffani Carrero RN Jul 14 2016 11:21AM WELFARE CASE WORKER [facility] OTHER * ANTICOAGULATION (06/30/2016) Narrative Procedure Note [facility] - 06/30/2016 12:00 AM CST Anticoagulation [facility] Name: CRISTIAN BLEDSOE : 1945 DOS: 06/30/2016 [...] by:Tiffani Carrero RN Jun 30 2016 9:24AM WELFARE CASE WORKER [facility] OTHER * ANTICOAGULATION (05/20/2016) Narrative Procedure Note [facility] - 05/20/2016 12:00 AM CST Anticoagulation [facility] Name: CRISTIAN BLEDSOE : 1945 DOS: 05/20/2016 [...] by:Tiffani Carrero RN May 20 2016 3:59PM WELFARE CASE WORKER [facility] OTHER * ANTICOAGULATION (04/15/2016) Narrative Procedure Note [facility] - 04/15/2016 12:00 AM CDT Anticoagulation [facility] Name: CRISTIAN BLEDSOE : 1945 DOS: 04/15/2016 [...] by:Tiffani Carrero RN Apr 15 2016 5:55PM WELFARE CASE WORKER [facility] OTHER * ANTICOAGULATION (03/18/2016) Narrative Procedure Note [facility] - 03/18/2016 12:00 AM CDT Anticoagulation [facility] Name: CRISTIAN BLEDSOE : 1945 DOS: 03/18/2016 [...] by:Tiffani Carrero RN Mar 18 2016 9:42AM WELFARE CASE WORKER [facility] OTHER * ANTICOAGULATION (03/09/2016) Narrative Procedure Note [facility] - 03/09/2016 12:00 AM CDT ACC [...] Tiffani Carrero RN; Mar 09 2016 9:59AMCST [facility] OTHER * ANTICOAGULATION (02/27/2016) Narrative Procedure Note [facility] - 02/27/2016 12:00 AM CDT Anticoagulation [facility] Name: CRISTIAN BLEDSOE : 1945 DOS: 02/27/2016 [...] by:Tiffani Carrero RN Feb 27 2016 12:04PM WELFARE CASE WORKER [facility] OTHER * ANTICOAGULATION (02/12/2016) Narrative Procedure Note [facility] - 02/12/2016 12:00 AM CDT Anticoagulation [facility] Name: CRISTIAN BLEDSOE : 1945 DOS: 02/12/2016 [...] by:Tiffani Carrero RN Feb 12 2016 9:02AM WELFARE CASE WORKER [facility] OTHER * ANTICOAGULATION (02/04/2016) Narrative Procedure Note [facility] - 02/04/2016 12:00 AM CDT Anticoagulation [facility] Name: CRISTIAN BLEDSOE : 1945 DOS: 02/04/2016 [...] by:Tiffani Carrero RN Feb 04 2016 9:45AM WELFARE CASE WORKER [facility] OTHER * ANTICOAGULATION (01/31/2016) Narrative Procedure Note [facility] - 01/31/2016 12:00 AM CDT [...] by:Carlene Hargrove RN Jan 31 2016 2:45PM WELFARE CASE WORKER [facility] OTHER documented in this encounter Visit Diagnoses Not on filedocumented in this encounter Care Teams Hospice Fellow Relationship Specialty Start Date End Date Casey Berry II, DO PCP - General 11/22/06 08/17/19 Stephani Aleman MD PCP - General Family Medicine 08/18/19 09/16/20 Bianka Loera CNP [address] [place] [phone] PCP - General Nurse Practitioner Family 09/17/20 7/2 12/31 Desiree Patrick MD [address] [place] [address] PCP - General Electrophysiology 02/23/22 03/09/22 Desiree Patrick MD [address] [place] [address] 08/09/17 Farrah Nicole APRN,YARD OPERATOR [address] [place] [address] 08/09/17 Bry Echevarria MD [address] [place] [address] [place] [address] 08/09/17 Casey Berry II, DO 08/09/17 Shruti Vergara, RN RN Registered Nurse 08/27/20 documented as of this encounter Additional Source Comments PLEASE NOTE: Replies to this message will not be received.[facility]
--- OUTSIDE RECORDS SUMMARY | 2024-03-27 14:49 | XMS_ITS | Encounter Summary ---
Author Organization [employer] Address [address] [place] [address] Care Team Providers Care Assembler Motor Vehicle Name Role Phone Jamal CARLISLE DO, Robert William Primary Care Provide r Unavailable Desiree Patrick MD Unavailable Farrah Nicole APRN,MANAGER INPATIENT Unavailable Bry Echevarria MD Unavailable Jamal CARLISLE DO, Robert William Unavailable Unav xiable Stephani Aleman MD Primary Care Provider Shruti Vergara RN Unavailable Unavailable Bianka Loera CNP Primary Care Provider Desiree Patrick MD Primary Care P rovider Encounter Details Date Type Department Care Team (Late st Contact Info) Description 10/09/2016 Historical Conversion [facility] Family Medicine [address] [facility] [place] [address] Jana Aleman APRN,HARVESTING CONTRACTOR [address] [place] [address] Social History Tobacco Use Types [...] this encounter Progress Notes * Jana Aleman, LAW FIRM ADMINISTRATOR,HARVESTING CONTRACTOR - 10/09/2016 12:00 AM CDT Assessment 1. [...] Thao Phone Number to Contact Patient: : [phone] to Provider, Practice or Agency: : Either [facility] or [facility] Reason For Visit Patient in [...] 1 TABLET BY MOUTH ONCE DAILY; Therapy: [id number] to (Evaluate:[id number]) Requested for: 13Jul2016; Last Rx:13Jul2016 Ordered 3. Metoclopramide HCl - 5 MG Oral Tablet; TAKE 1 TABLET as needed; Therapy: 10Sep2014 to Requested for: [id number] Recorded 4. Metoprolol Tartrate 25 MG Oral Tablet; 1 prn a fib; Therapy: (Recorded:[id number]) to Requested for: [id number] Recorded 5. Tylenol Extra Strength 500 MG Oral Tablet; Therapy: (Recorded:[id number]) to Recorded 6. Warfarin Sodium 5 MG Oral Tablet; Take as directed by ACC; Therapy: [id number] to (Evaluate:[id number]) Requested for: 14Jul2016 Recorded Allergies 1. Penicillins [...] RN CNP RN,NIKKI; Oct 18 2016 1:54PM DISABILITY REPRESENTATIVE Electronically signed by : Casey Berry DO; Oct 22 2016 1:20PM DISABILITY REPRESENTATIVE documented in this encounter Plan of Treatment Not on file documented as of this encounter Visit Diagnoses Not on filedocumented in this encounter Care Teams Assembler Motor Vehicle Relationship Specialty Start Date End Date Casey Berry II, DO PCP - General 11/22/06 08/17/19 Stephani Aleman MD PCP - General Family Medicine 08/18/19 09/16/20 Bianka Loera CNP [address] [facility] [address] [place] [address] PCP - General Nurse Practitioner Family 09/17/20 712/31 [place] [address] [place] [address] [place] [address] PCP - General Electrophysiology 02/23/22 03/09/22 Desiree Patrick MD [address] [place] [address] 08/09/17 Farrah Nicole, LAW FIRM ADMINISTRATOR,MANAGER INPATIENT [address] [place] [address] 08/09/17 Bry Echevarria MD [address] [place] [address] [place] [address] 08/09/17 Casey Berry II, DO 08/09/17 Shruti Vergara RN RN Registered Nurse 08/27/20 documented as of this encounter Additional Source Comments PLEASE NOTE: Replies to this message will not be received.[facility]
--- OUTSIDE RECORDS SUMMARY | 2024-03-27 14:49 | XMS_ITS | Encounter Summary ---
Author Organization [employer] Address [address] [place] [address] Care Team Providers Care Radiology Practitioner Assistant Name Role Phone Jamal CARLISLE DO, Robert William Primary Care Provide r Unavailable Desiree Patrick MD Unavailable Farrah Nicole APRN,POLICY LOAN CALCULATOR Unavailable Bry Echevarria MD Unavailable [phone] Jamal CARLISLE DO, Robert William Unavailable Unav Stephani Diaz MD Primary Care Provider [phone] Shruti Vergara RN Unavailable Unavailable Bianka Loera CNP Primary Care Provider [phone] Desiree Patrick MD Primary Care P rovider Encounter Details Date Type Department Care Team (Late st Contact Info) Description 11/30/2016 Historical Conversion [facility] Family Medicine [address] [place] [id number] Casey Berry II, DO Social History Tobacco [...] on filedocumented in this encounter Care Teams Radiology Practitioner Assistant Relationship Specialty Start Date End Date Casey Berry II, DO PCP - General 11/22/06 08/17/19 Stephani Aleman MD PCP - General Family Medicine 08/18/19 09/16/20 Bianka Loera CNP [address] [place] [address] [address] [place] [phone] PCP - General Nurse Practitioner Family 09/17/2001/10 [place] [address] [place] [address] PCP - General Electrophysiology 02/23/22 03/09/22 Desiree Patrick MD [address] [place] [address] 08/09/17 Farrah Nicole APRN,POLICY LOAN CALCULATOR [address] [place] [address] 08/09/17 Bry Echevarria MD [facility] [place] [address] 08/09/17 Casey Berry II, DO 08/09/17 Shruti Vergara RN RN Registered Nurse 08/27/20 documented as of this encounter Additional Source Comments PLEASE NOTE: Replies to this message will not be received.[facility]
--- OUTSIDE RECORDS SUMMARY | 2024-03-27 14:49 | XMS_ITS | Encounter Summary ---
Author Organization [employer] Address [address] [place] [address] Care Team Providers Care Neurocritical Care Physician Name Role Phone Jamal CARLISLE DO, Robert William Primary Care Provide r Unavailable Desiree Patrick MD Unavailable Farrah Nicole APRN,LAN SUPPORT SPECIALIST Unavailable Bry Echevarria MD Unavailable Jamal CARLISLE DO, Robert William Unavailable Unav Stephani Diaz MD Primary Care Provider Shruti Vergara RN Unavailable Unavailable Bianka Loera CNP Primary Care Provider Desiree Patrick MD Primary Care P rovider Encounter Details Date Type Department Care Team (Late st Contact Info) Description 12/31/2016 Historical Conversion [facility] Family Medicine [address] [facility] [place] [address] Desiree Rubi PAC [address] [place] [address] Social History Tobacco Use Types [...] on filedocumented in this encounter Care Teams Neurocritical Care Physician Relationship Specialty Start Date End Date Casey Berry II, DO PCP - General 11/22/06 08/17/19 Stephani Aleman MD PCP - General Family Medicine 08/18/19 09/16/20 Bianka Loera CNP [address] [facility] [address] [place] [address] PCP - General Nurse Practitioner Family 09/17/2001/10 Desiree Patrick MD [address] [place] [address] PCP - General Electrophysiology 02/23/22 03/09/22 Desiree Patrick MD [address] [place] [address] 08/09/17 Farrah Nicole APRN,LAN SUPPORT SPECIALIST [address] [place] [address] 08/09/17 Bry Echevarria MD [address] [place] [address] [place] [address] 08/09/17 Casey Berry II, DO 08/09/17 Shruti Vergara RN RN Registered Nurse 08/27/20 documented as of this encounter Additional Source Comments PLEASE NOTE: Replies to this message will not be received.[facility]
--- OUTSIDE RECORDS SUMMARY | 2024-03-27 14:49 | XMS_ITS | Encounter Summary ---
Author Organization [employer] Address [address] [place] [address] Care Team Providers Care Percussion Tuner Name Role Phone Jamal CARLISLE DO, Robert William Primary Care Provide r Unavailable Desiree Patrick MD Unavailable Farrah Nicole APRN,DIRECTOR OF ADVERTISING SALES Unavailable Bry Echevarria MD Unavailable Jamal CARLISLE DO, Robert William Unavailable Unav Stephani Diaz MD Primary Care Provider [phone] Shruti Vergara RN Unavailable Unavailable Bianka Loera CNP Primary Care Provider Desiree Patrick MD Primary Care P rovider Encounter Details Date Type Department Care Team (Late st Contact Info) Description 01/28/2016 Historical Conversion [facility] Family Medicine [address] [place] [address] Social History Tobacco Use Types Packs/Day Years [...] as of this encounter Procedure Notes * [facility], GENERICPROVIDER - 01/28/2016 12:00 AM CDTAssociated Order(s): [...] daily, Reglan 5 mg TID PRN, and [id number] mg BID for pain in right knee. [...] by:Razia Duarte RN Jan 28 2016 12:46PM LITIGATION EXAMINER documented in this encounter Plan of Treatment Not on file documented as of this encounter Procedures Procedure Name Priority Date/Time Associated Diagnosis Comments ANTICOAGULATION 01/28/2016 documented in this encounter Results * ANTICOAGULATION (01/28/2016) Narrative Procedure Note [facility], GENERICPROVIDER - 01/28/2016 12:00 AM CDT Name: CRISTIAN WILKINSN: [id number] : 1945 DOS: 01/28/2016 Cristian ia a [...] and approximately 200 lbs. Patient denies any [facility] of bleeding or stroke. He [...] summer as he is apart of a [employer]. Drinks green tea onoccasion; encouraged to avoid [...] by:Razia Duarte RN Jan 28 2016 12:46PM LITIGATION EXAMINER Genericprovider [facility] OTHER documented in this encounter Visit Diagnoses Not on filedocumented in this encounter Care Teams Percussion Tuner Relationship Specialty Start Date End Date Casey Berry II, DO PCP - General 11/22/06 08/17/19 Stephani Aleman MD PCP - General Family Medicine 08/18/19 09/16/20 Bianka Loera SUPERVISOR ENGRAVING [address] [place] [phone] PCP - General Nurse Practitioner Family 09/17/2001/10 Desiree Patrick MD [address] [place] [address] PCP - General Electrophysiology 02/23/22 03/09/22 Desiree Patrick MD [address] [place] [address] 08/09/17 Farrah Nicole APRN,DIRECTOR OF ADVERTISING SALES [address] [place] [address] 08/09/17 Bry Echevarria MD [address] [place] [address] 08/09/17 Casey Berry II, DO 08/09/17 Shruti Vergara RN RN Registered Nurse 08/27/20 documented as of this encounter Additional Source Comments PLEASE NOTE: Replies to this message will not be received.[facility] and [facility]
--- OUTSIDE RECORDS SUMMARY | 2024-03-27 14:49 | XMS_ITS | Encounter Summary ---
Author Organization [employer] Address [address] [place] [address] Care Team Providers Care Fence Post Cutter Name Role Phone Jamal CARLISLE DO, Robert William Primary Care Provide r Unavailable Desiree Patrick MD Unavailable Farrah Nicole APRN,EXECUTIVE DIRECTOR GLOBAL BRAND MARKETING Unavailable Bry Echevarria MD Unavailable Jamal CARLISLE DO, Robert William Unavailable Unav Stephani Diaz MD Primary Care Provider Shruti Vergara RN Unavailable Unavailable Bianka Loera CNP Primary Care Provider Desiree Patrick MD Primary Care P rovider Encounter Details Date Type Department Care Team (Late st Contact Info) Description 10/21/2016 Historical Conversion [facility] Family Medicine [address] [place] [address] Social History Tobacco Use Types Packs/Day Years [...] on filedocumented in this encounter Care Teams Fence Post Cutter Relationship Specialty Start Date End Date Casey Berry II, DO PCP - General 11/22/06 08/17/19 Stephani Aleman MD PCP - General Family Medicine 08/18/19 09/16/20 Bianka Loera CNP [address] [place] [phone] PCP - General Nurse Practitioner Family 09/17/2001/10 Desiree Patrick MD [address] [place] [address] PCP - General Electrophysiology 02/23/22 03/09/22 Desiree Patrick MD [address] [place] [address] 08/09/17 Farrah Nicole APRN,EXECUTIVE DIRECTOR GLOBAL BRAND MARKETING [address] [place] [address] 08/09/17 Bry Echevarria MD [address] [place] [address] 08/09/17 Casey Berry II, DO 08/09/17 Shruti Vergara RN RN Registered Nurse 08/27/20 documented as of this encounter Additional Source Comments PLEASE NOTE: Replies to this message will not be received.[facility]
--- OUTSIDE RECORDS SUMMARY | 2024-03-27 14:49 | XMS_ITS | Encounter Summary ---
Author Organization [employer] Address [address] [place] [address] Care Team Providers Care Rope Machine Setter Name Role Phone Jamal CARLISLE DO, Robert William Primary Care Provide r Unavailable Desiree Patrick MD Unavailable Farrah Nicole APRN,CEMENT SIDE LASTER Unavailable Bry Echevarria MD Unavailable [phone] Jamal CARLISLE DO, Robert William Unavailable Unav Stephani Diaz MD Primary Care Provider Shruti Vergara RN Unavailable Unavailable Bianka Loera CNP Primary Care Provider Desiree Patrick MD Primary Care P rovider Encounter Details Date Type Department Care Team (Late st Contact Info) Description 12/31/2016 Historical Conversion [facility] Family Medicine [address] [facility] [place] [address] Desiree Rubi PAC [address] [place] [address] Social History Tobacco Use Types [...] CST UROLOGY CRISTIAN LADI : 1945 HX: [id number] DOS: 08/31/2017 HISTORY OF PRESENT ILLNESS: Anurag is a 71-year-old gentleman who presents to the Urology clinic today. He previously had rubber nodularity on both sides of the prostate. He had a PSA velocitychange and his PCA3 test came back positive. A biopsy October 2016 showed a El Rito 6 prostate cancerat the left base of [...] 1. 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 He is status post EBRT [...] by:Desiree Rubi PA-C Sep 02 2017 5:01PM HIV PREVENTION SPECIALIST * Desiree Rubi - 03/30/2017 12:00 AM CDT UROLOGY CRISTIAN BLEDSOE : 1945 HX: [id number] DOS: 03/30/2017 HISTORY OF PRESENT ILLNESS: 71-year-old [...] involving 2% of thespecimen. He had a El Rito 7 cancer at the left mid prostate involving less than 5% of the tissue. The right mid prostate he had El Rito 7 cancer involving 20% of the tissue in that area. [facility] Curt 7 cancer [...] Mare Rubi P.A.-C./ cc: Dr. Moon Maloney [facility] Radha Winslow [facility] Radiation Therapy Dept Dr. Casey Berry [facility] Radha Electronically signed by:Desiree Rubi PA-C Apr 02 2017 1:20PM HIV PREVENTION SPECIALIST * Desiree Rubi - 12/31/2016 12:00 AM CDT UROLOGY CRISTIAN BLEDSOE : 1945 HX: [id number] DOS: 12/31/2016 HISTORY OF PRESENT ILLNESS: 71-year-old male who presents to the Urology clinic today. Hehad a velocity change with his PSA. On his prostate exam he had a rubbery nodularity on both sides.It was a symmetrical prostate. His PSA was monitored for a little while. In August he had a IT SECURITY ENGINEER 3test and that came back positive. He was brought back for a prostate biopsy October 23, 2016. His pathology showed El Rito 6 cancer at the left base of the prostate involving 2% of the specimen. He hadGleason 7 cancer at the left mid prostate involving less than 5% of the tissue. The right mid prostate he had a El Rito 7 cancer involving 20% of the specimen [...] Lupron. UA today is normal. ASSESSMENT: 1. El Rito 7 adenocarcinoma of the prostate. He will [...] Rubi P.A.-C./anna 28 cc: Dr. Moon Maloney [facility] Radha Winslow [facility] Dr. Casey Berry [facility] Radha Electronically signed by:Desiree Rubi PA-C Jan 06 2017 4:31PM HIV PREVENTION SPECIALIST Author documented in this encounter Plan of Treatment Not on file documented as of this encounter Visit Diagnoses Not on filedocumented in this encounter Care Teams Rope Machine Setter Relationship Specialty Start Date End Date Casey Berry II, DO PCP - General 11/22/06 08/17/19 Stephani Aleman MD PCP - General Family Medicine 08/18/19 09/16/20 Bianka Loera CNP [address] [place] [phone] PCP - General Nurse Practitioner Family 09/17/20 712/31 Desiree Patrick MD [address] [place] [address] PCP - General Electrophysiology 02/23/22 03/09/22 Desiree Patrick MD [address] [place] [address] 08/09/17 Farrah Nicole APRN,CEMENT SIDE LASTER [address] [place] [address] 08/09/17 Bry Echevarria MD [address] [place] [address] 08/09/17 Casey Berry II, DO 08/09/17 Shruti Vergara, RN RN Registered Nurse 08/27/20 documented as of this encounter Additional Source Comments PLEASE NOTE: Replies to this message will not be received.[facility] and [facility]
--- OUTSIDE RECORDS SUMMARY | 2024-03-27 14:49 | XMS_ITS | Encounter Summary ---
Author Organization [employer] Address [address] [place] [address] Care Team Providers Care Inspector Process Name Role Phone Jamal CARLISLE DO, Robert William Primary Care Provide r Unavailable Desiree Ptarick MD Unavailable Farrah Nicole APRN,SUPERVISOR TRAVEL INFORMATION CENTER Unavailable Bry Echevarria MD Unavailable [phone] Jamal CARLISLE DO, Robert William Unavailable Unav Stephani Diaz MD Primary Care Provider Shruti Vergara RN Unavailable Unavailable Bianka Loera CNP Primary Care Provider Desiree Patrick MD Primary Care P rovider Encounter Details Date Type Department Care Team (Late st Contact Info) Description 10/08/2016 Historical Conversion [facility] Family Medicine [address] [place] [address] Social History Tobacco Use Types Packs/Day Years [...] as of this encounter Nursing Notes * [facility], GENERICPROVIDER - 10/08/2016 12:00 AM CDT [...] chest pain or confusion. Patient instructed by clinical writer to go to the Emergency Room at [facility] to be evaluated. Patient verbalized understanding of instructions. STACY MCCAULEY Electronically signed by:Tammy Coronado RN Oct 08 2016 8:22AM THERMOMETER TESTER documented in this encounter Plan of Treatment Not on file documented as of this encounter Visit Diagnoses Not on filedocumented in this encounter Care Teams Inspector Process Relationship Specialty Start Date End Date Casey Berry II, DO PCP - General 11/22/06 08/17/19 Stephani Aleman MD PCP - General Family Medicine 08/18/19 09/16/20 Bianka Loera CNP [address] [facility] [address] [place] [address] PCP - General Nurse Practitioner Family 09/17/2001/10 Desiree Patrick MD [address] [place] [address] PCP - General Electrophysiology 02/23/22 03/09/22 Desiree Patrick MD [address] [place] [address] 08/09/17 Farrah Nicole, INFORMATION TECHNOLOGY TEACHER,SUPERVISOR TRAVEL INFORMATION CENTER [address] [place] [address] 08/09/17 Bry Echevarria MD [address] [place] [address] 08/09/17 Casey Berry II, DO 08/09/17 Shruti Vergara RN RN Registered Nurse 08/27/20 documented as of this encounter Additional Source Comments PLEASE NOTE: Replies to this message will not be received.[facility] and [facility]
--- OUTSIDE RECORDS SUMMARY | 2024-03-27 14:49 | XMS_ITS | Encounter Summary ---
Author Organization [employer] Address [address] [place] [address] Care Team Providers Care Deboning Team Leader Name Role Phone Jamal CARLISLE DO, Robert William Primary Care Provide r Unavailable Desiree Patrick MD Unavailable Farrah Nicole APRN,CHAR FILTER TANK TENDER HEAD Unavailable Bry Echevarria MD Unavailable Jamal CARLISLE DO, Robert William Unavailable Unav Stephani Diaz MD Primary Care Provider Shruti Vergara RN Unavailable Unavailable Bianka Loera CNP Primary Care Provider Desiree Patrick MD Primary Care P rovider Encounter Details Date Type Department Care Team (Late st Contact Info) Description 11/06/[address] [facility] Family Medicine [address] [place] [phone] Moon Maloney MD Social History Tobacco Use [...] on filedocumented in this encounter Care Teams Deboning Team Leader Relationship Specialty Start Date End Date Casey Berry II, DO PCP - General 11/22/06 08/17/19 Stephani Aleman MD PCP - General Family Medicine 08/18/19 09/16/20 Bianka Loera CNP [address] [place] [address] 2 [place] [phone] PCP - General Nurse Practitioner Family 09/17/2001/10 Desiree Patrick MD [address] [place] [address] PCP - General Electrophysiology 02/23/22 03/09/22 Desiree Patrick MD [address] [place] [address] 08/09/17 Farrah Nicole APRN,CHAR FILTER TANK TENDER HEAD [address] [place] [address] 08/09/17 Bry Echevarria MD [address] [place] [address] 08/09/17 Casey Berry II, DO 08/09/17 Shruti Vergara RN RN Registered Nurse 08/27/20 documented as of this encounter Additional Source Comments PLEASE NOTE: Replies to this message will not be received.[facility]
--- OUTSIDE RECORDS SUMMARY | 2024-03-27 14:49 | XMS_ITS | Encounter Summary ---
Author Organization [employer] Address [address] [place] [address] Care Team Providers Care Semiconductor Assembler Name Role Phone Jamal CARLISLE DO, Robert William Primary Care Provide r Unavailable Desiree Patrick MD Unavailable Farrah Nicole APRN,STORE MANAGER Unavailable Bry Echevarria MD Unavailable Jamal CARLISLE DO, Robert William Unavailable Unav Stephani Diaz MD Primary Care Provider Shruti Vergara RN Unavailable Unavailable Bianka Loera CNP Primary Care Provider Desiree Patrick MD Primary Care P rovider Encounter Details Date Type Department Care Team (Late st Contact Info) Description 12/01/2016 Historical Conversion [facility] Family Medicine [address] [place] [address] Moon Malonye MD Social History Tobacco Use Types Packs/Day [...] on filedocumented in this encounter Care Teams Semiconductor Assembler Relationship Specialty Start Date End Date Casey Berry II, DO PCP - General 11/22/06 08/17/19 Stephani Aleman MD PCP - General Family Medicine 08/18/19 09/16/20 Bianka Loera CNP [address] [place] [address] [address] [place] [phone] PCP - General Nurse Practitioner Family 09/17/2001/10 [place] [address] [place] [phone] PCP - General Electrophysiology 02/23/22 03/09/22 Desiree Patrick MD [address] [place] [address] 08/09/17 Farrah Nicole APRN,STORE MANAGER [address] [place] [address] 08/09/17 Bry Echevarria MD [address] [place] [address] 08/09/17 Casey Berry II, DO 08/09/17 Shruti Vergara RN RN Registered Nurse 08/27/20 documented as of this encounter Additional Source Comments PLEASE NOTE: Replies to this message will not be received.[facility] and [facility]
--- OUTSIDE RECORDS SUMMARY | 2024-03-27 14:49 | XMS_ITS | Encounter Summary ---
Author Organization [employer] Address [address] [place] [address] Care Team Providers Care Assembler Fitter Name Role Phone Jamal CARLISLE DO, Robert William Primary Care Provide r Unavailable Desiree Patrick MD Unavailable Farrah Nicole APRN,GUIDE DOMESTIC TOUR Unavailable Bry Echevarria MD Unavailable Jamal CARLISLE DO, Robert William Unavailable Unav Stephani Diaz MD Primary Care Provider [phone] Shruti Vergara RN Unavailable Unavailable Bianka Loera CNP Primary Care Provider [phone] Desiree Patrick MD Primary Care P rovider Encounter Details Date Type Department Care Team (Late st Contact Info) Description 06/24/2016 Historical Conversion [facility] Family Medicine [address] [place] [address] Casey Berry II, DO Social History Tobacco [...] Comments Blood Pressure 115/76 06/24/2016 12:00 AM REGULATORY AFFAIRS PORTFOLIO LEADER Pulse - - Temperature - - Respiratory Rate - - Oxygen Saturation - - Inhaled Oxygen Concentration - - Weight 91.5 kg (201 lb 11.5 oz) 016 12:00 AM REGULATORY AFFAIRS PORTFOLIO LEADER Height - - Body Mass Index 26.61 [...] filedocumented in this encounter Care Teams Assembler Fitter Relationship Specialty Start Date End Date Casey Berry II, DO PCP - General 11/22/06 08/17/19 Stephani Aleman MD PCP - General Family Medicine 08/18/19 09/16/20 Bianka Loera CNP [address] [place] [phone] PCP - General Nurse Practitioner Family 09/17/2001/10 Desiree Patrick MD [address] [place] [address] PCP - General Electrophysiology 02/23/22 03/09/22 Desiree Patrick MD [address] [place] [address] 08/09/17 Farrah Nicole APRN,GUIDE DOMESTIC TOUR [address] [place] [address] 08/09/17 Bry Echevarria MD [address] [place] [address] [place] [address] 08/09/17 Casey Berry II, DO 08/09/17 Shruti Vergara RN RN Registered Nurse 08/27/20 documented as of this encounter Additional Source Comments PLEASE NOTE: Replies to this message will not be received.[facility] and [facility]
--- OUTSIDE RECORDS SUMMARY | 2024-03-27 14:49 | XMS_ITS | Encounter Summary ---
Author Organization [employer] Address [address] [place] [address] Care Team Providers Care Feed And Farm Management Adviser Name Role Phone Jamal CARLISLE DO, Robert William Primary Care Provide r Unavailable Desiree Patrick MD Unavailable Farrah Nicole APRN,FURNACE REPAIRER Unavailable Bry Echevarria MD Unavailable Jamal CARLISLE DO, Robert William Unavailable Unav Stephani Diaz MD Primary Care Provider Shruti Vergara RN Unavailable Unavailable Bianka Loera CNP Primary Care Provider [phone] Desiree Patrick MD Primary Care P rovider Encounter Details Date Type Department Care Team (Late st Contact Info) Description 02/11/2016 Historical Conversion [facility] Family Medicine [address] [place] [address] Moon Maloney MD Social History Tobacco Use [...] on filedocumented in this encounter Care Teams Feed And Farm Management Adviser Relationship Specialty Start Date End Date Casey Berry II, DO PCP - General 11/22/06 08/17/19 Stephani Aleman MD PCP - General Family Medicine 08/18/19 09/16/20 Bianka Loera CNP [address] [place] [phone] PCP - General Nurse Practitioner Family 09/17/2001/10 [place] [address] [place] [address] PCP - General Electrophysiology 02/23/22 03/09/22 Desiree Patrick MD [address] [place] [address] 08/09/17 Farrah Nicole APRN,[facility] [address] [place] [place] [address] 08/09/17 Bry Echevarria MD [facility] [place] [address] 08/09/17 Casey Berry II, DO 08/09/17 Shruti Vergara RN RN Registered Nurse 08/27/20 documented as of this encounter Additional Source Comments PLEASE NOTE: Replies to this message will not be received.[facility] and [facility]
--- OUTSIDE RECORDS SUMMARY | 2024-03-27 14:50 | XMS_ITS | Continuity of Care Document ---
Author Organization [facility] Address [address] [place] [address] Phone Care Team Providers Care Poolroom Table Attendant Name Role Phone [facility] MD, [facility] Unavailable Unavailable Allergies, Adverse Reactions, Alerts Substance Reaction Status Criticality Sulfa (Sulfonamide Antibiotics) rash Active No Information PENICILLIN rash Active No Information Medications Medication Instructions Dosage Effective Dates (start - stop) Status Comments Yvbx-Owoz-Sfhuy 1%/0.5%/.01% OPHTHALMIC DROPS Apply one drop to [...] Diagnoses Date Provider Providers Copied on Encounter [facility], [address] [place], [id number], [place] tel:[phone] [facility] No Information 2 [facility]. [address] [place], [id number]. tel:[phone] Referring Provider: Timoteo Zhao, [address] [place], [address] . tel:[phone] [facility], [address] [place], [place], [id number], [place] tel:[phone] [facility] No Information 2 [facility]. [address] [place], [id number]. tel:[phone] Referring Provider: Timoteo Zhao, [address] [place], [address] . tel:[phone] [facility], [address] [place], [id number], [place] tel:[phone] [facility] No Information 9 [facility]. [address] [place], [id number]. tel:[phone] Referring Provider: Timoteo Zhao, [address] [place], [address] . tel:[phone] [facility], [address] [place], [id number], [place] tel:[phone] [facility] No Information 9 [facility]. [address] [facility] [place], [id number]. tel:[phone] Referring Provider: Timtoeo Zhao, [address] [place] [address], [address] . tel:[phone] [facility], [address] [place], [place], [id number], tel:[phone] [facility] No Information 9 Dave Mahmood. [address] [place] [address], [id number], [place]. tel:[phone] Family History Family Member Type Diagnosis Age At Onset No Information Payers Payer name Insurance type Covered constitution party ID Authoriza tion(s) [facility] [id number] Social History Type Description Quantity Date Captured [...]
--- OUTSIDE RECORDS SUMMARY | 2024-03-27 14:50 | XMS_ITS | Encounter Summary ---
Author Organization [employer] Address [address] [place] [address] Care Team Providers Care Reformatory Attendant Name Role Phone Jamal CARLISLE DO, Robert William Primary Care Provide r Unavailable Desiree Patrick MD Unavailable Farrah Nicole APRN,CONTROL CLERK HEAD Unavailable Bry Echevarria MD Unavailable [phone] Jamal CARLISLE DO, Robert William Unavailable Unav Stephani Diaz MD Primary Care Provider Shruti Vergara RN Unavailable Unavailable Bianka Loera CNP Primary Care Provider [phone] Desiree Patrick MD Primary Care P rovider Encounter Details Date Type Department Care Team (Late st Contact Info) Description 09/10/2014 Historical Conversion [facility] Family Medicine [address] [place] [address] Casey Berry II, DO Social History Tobacco Use Types Packs/Day Years Used Date Smoking Tobacco: Never Assessed Sex and Gender Information Value Date Recorded Sex Assigned at Not on file Gender Identity Not on file Sexual Orientation Not on file documented as of this encounter Last Filed Vital Signs Vital Sign Reading Time Taken Comments Blood Pressure 130/80 09/10/2014 12:00 AM SITE FOREMAN Pulse - - Temperature - - Respiratory Rate - - Oxygen Saturation - - Inhaled Oxygen Concentration - - Weight 93.9 kg (207 lb 0.2 oz) 09/10/2014 12:00 AM SITE FOREMAN Height - - Body Mass Index 27.31 08/22/2014 12:00 AM SITE FOREMAN documented in this encounter Plan of Treatment Not on file documented as of this encounter Visit Diagnoses Not on filedocumented in this encounter Care Teams Reformatory Attendant Relationship Specialty Start Date End Date Casey Berry II, DO PCP - General 11/22/06 08/17/19 Stephani Aleman MD PCP - General Family Medicine 08/18/19 09/16/20 Bianka Loera CNP [address] [place] [address] [address] [place] [phone] PCP - General Nurse Practitioner Family 09/17/2001/10 Desiree Patrick MD [address] [place] [address] PCP - General Electrophysiology 02/23/22 03/09/22 Desiree Patrick MD [address] [place] [address] 08/09/17 Farrah Nicole APRN,CONTROL CLERK HEAD [address] [place] [address] 08/09/17 Bry Echevarria MD [address] [place] [address] [place] [phone] 08/09/17 Casey Berry II, DO 08/09/17 Shruti Vergara RN RN Registered Nurse 08/27/20 documented as of this encounter Additional Source Comments PLEASE NOTE: Replies to this message will not be received.[facility]
--- OUTSIDE RECORDS SUMMARY | 2024-03-27 14:50 | XMS_ITS | Encounter Summary ---
Author Organization [employer] Address [address] [place] [address] Care Team Providers Care Drag Out Worker Name Role Phone Jamal CARLISLE DO, Robert William Primary Care Provide r Unavailable Desiree Patrick MD Unavailable Farrah Nicole APRN,ASSISTED LIVING EXECUTIVE DIRECTOR Unavailable [phone] Bry Echevarria MD Unavailable Jamal CARLISLE DO, Robert William Unavailable Unav Stephani Diaz MD Primary Care Provider Shruti Vergara RN Unavailable Unavailable Bianka Loera CNP Primary Care Provider Desiree Patrick MD Primary Care P rovider Encounter Details Date Type Department Care Team (Late st Contact Info) Description 01/03/2014 Historical Conversion [facility] Family Medicine [address] [place] [address] Errol Berry II, DO Social History Tobacco [...] AM CDT CRISTIAN BLEDSOE : 1945 HX: [id number] DOS: 01/03/2014 CHIEF COMPLAINT: Back pain. HISTORY [...] by:ERROL BERRY D.O. Jan 17 2014 7:34AM DIRECTOR REVENUE documented in this encounter Plan of Treatment Not on file documented as of this encounter Visit Diagnoses Not on filedocumented in this encounter Care Teams Drag Out Worker Relationship Specialty Start Date End Date Errol Berry II, DO PCP - General 11/22/06 08/17/19 Stephani Aleman MD PCP - General Family Medicine 08/18/19 09/16/20 Bianka Loera RESEARCH PROFESSOR OF BIOSTATISTICS [address] [place] [address] PCP - General Nurse Practitioner Family 09/17/20 7/12/31 Desiree Patrick MD [address] [place] [address] PCP - General Electrophysiology 02/23/22 03/09/22 Desiree Patrick MD [address] [place] [address] 08/09/17 Farrah Nicole APRN,ASSISTED LIVING EXECUTIVE DIRECTOR [address] [place] [address] 08/09/17 Bry Echevarria MD [facility] [place] [address] 08/09/17 Errol Berry II, DO 08/09/17 Shruti Vergara RN RN Registered Nurse 08/27/20 documented as of this encounter Additional Source Comments PLEASE NOTE: Replies to this message will not be received.[facility]
--- OUTSIDE RECORDS SUMMARY | 2024-03-27 14:50 | XMS_ITS | Encounter Summary ---
Author Organization [facility] [employer] [facility] Address [address] [place] [address] Care Team Providers Care Golf Club Head Former Name Role Phone Jamal CARLISLE [...] st Contact Info) Description 11/15/2006 Clinic Encounter [facility] Dermatology [address] [place] [address] Ganga Anderson MD Social History [...] Rohan Carroll : 1945 E: Ganga Anderson MD/[facility] DERMATOLOGY OFFICE VISIT CHART: [id number] P Date of Service: 2006 Doc #: [id number] P Attending Physician: None available SUBJECTIVE: This [...] we will set up treatment as indicated. [facility] documented in this encounter Plan of Treatment Not on file documented as of this encounter Visit Diagnoses Not on filedocumented in this encounter Care Teams Golf Club Head Former Relationship Specialty Start Date End Date Casey Berry II, DO PCP - General 11/22/06 08/17/19 Stephani Aleman MD PCP - General Family Medicine 08/18/19 09/16/20 Bianka Loera CNP [address] [place] [address] [address] [place] [address] PCP - General Nurse Practitioner Family 09/17/20 7/2 12/31 Desiree Patrick MD [address] [place] [address] PCP - General Electrophysiology 02/23/22 03/09/22 Desiree Patrick MD [address] [place] [facility] [place] [address] 08/09/17 Farrah Nicole APRN,HOUSING INSTALLER [address] [place] [address] 08/09/17 Bry Echevarria MD [address] [place] [address] 08/09/17 Casey Berry II, DO 08/09/17 Shruti Vergara RN RN Registered Nurse 08/27/20 documented as of this encounter Additional Source Comments PLEASE NOTE: Replies to this message will not be received.[facility]
--- OUTSIDE RECORDS SUMMARY | 2024-03-27 14:50 | XMS_ITS | Referral Summary ---
Author Organization [facility] Address [address] [place] [address] Care Team Providers Care Director Digital Name Role Phone Unavailable Primary Care Provider Unavailabl e Source Comments Patient records contain information from all sites at [facility]. For routine questions regarding patient records, call [phone] during business hours, M-F 8:00 AM - 5:00 PM Central Time. Record requests for emergency care only can be directed to [phone] at any time.[facility] Encounters Date Type Department Care Team Description 02/24/2024 1:38 PM CDT - 02/24/2024 11:59 PM CDT Hospital Encounter Department of Radiology in [address] [address] Vic Mae M.D. Parkinsonism Unspecified (HCC) Discharge Disposition: Home or Self Care 02/23/2024 10:15 AM CDT Comprehensive Visit Department of Neurology in [address] [address] Vic Mae M.D. Parkinsonism Unspecified (HCC) from [...] BY MOUTH TWICE DAILY. 11/17/2021 Active lisinopriL (PRINIVIL,ZESTRIL ) 10 mg tablet Take 10 mg by mouth daily. 01/19/2022 Active Jantoven 5 mg tablet Take 5 mg by mouth daily. 01/29/2022 Active DME CPAP BiPAP autoSV Advanced or VPAP adapt SV auto Max EPAP: 15 Min EPAP: 7 Max PS: 15 Min PS: 0 02/22/2019 Active DUCODYL, BISACODYL, ORAL Take by mouth. Activ e carbidopa-levodop a (SINEMET) 25-100 mg per tablet Take 2.5 tablets by mouth 3 (three) times a day. 675 tablet 3 04/15/2023 04/14/2024 Active Additional Information Patient taking differently: 3 tabletoral 3 times daily,Taking 3 tablets 3 times daily, Reported on 02/23/2024 calcitonin, salmon, (Miacalcin) 200 unit/actuation nasal spray Administer 200 Units into one nostril daily. 01/24/2024 Active Active Problems Problem Noted Date Diagnosed [...] 2015 Overview (05/17/2023): 4.2 x 4.[address] [facility] [address] Social History Tobacco Use Types Packs/Day [...] Comments Blood Pressure 136/82 05/17/2023 1:44 PM GEOTHERMAL ELECTRICAL ENGINEER Pulse 70 05/17/2023 1:44 PM GEOTHERMAL ELECTRICAL ENGINEER Temperature 36.8 ??C (98.2 ??F) 05/17/2023 1:44 PM CS T Respiratory Rate - - Oxygen Saturation - - Inhaled Oxygen Concentration - - Weight 87.3 kg (192 lb 7.4 oz) 05/17/2023 1:44 P M GEOTHERMAL ELECTRICAL ENGINEER Height 184 cm (6' 0.44) 04/15/2023 2:57 [...] Region Laterality Modality Head, Brain, Neuroradiology [facility], Neuroradiology [facility], [facility]adiology [facility] N/A Magnetic Resonance Impressions 02/24/2024 4:49 PM [...]
--- OUTSIDE RECORDS SUMMARY | 2024-03-27 14:50 | XMS_ITS | Encounter Summary ---
Author Organization [employer] Address [address] [place] [address] Care Team Providers Care Director Of Perioperative Services Name Role Phone Jamal CARLISLE DO, Robert William Primary Care Provide r Unavailable Desiree Patrick MD Unavailable Farrah Nicole APRN,COURTESY BOOTH CASHIER Unavailable Bry Echevarria MD Unavailable Jamal CARLISLE DO, Robert William Unavailable Unav Stephani Diaz MD Primary Care Provider [phone] Shruti Vergara RN Unavailable Unavailable Bianka Loera CNP Primary Care Provider [phone] Desiree Patrick MD Primary Care P rovider Encounter Details Date Type Department Care Team (Late st Contact Info) Description 12/11/2015 Historical Conversion [facility] Family Medicine [address] [place] [address] Casey Berry II, DO Social History Tobacco [...] in this encounter Care Teams Director Of Perioperative Services Relationship Specialty Start Date End Date Casey Berry II, DO PCP - General 11/22/06 08/17/19 Stephani Aleman MD PCP - General Family Medicine 08/18/19 09/16/20 Bianka Loera CNP [address] [place] [phone] PCP - General Nurse Practitioner Family 09/17/2001/10 [place] [address] [place] [address] PCP - General Electrophysiology 02/23/22 03/09/22 Desiree Patrick MD [address] [place] [address] 08/09/17 Farrah Nicole APRN,[facility] [address] [place] [address] 08/09/17 Bry Echevarria MD [address] [place] [address] [place] [address] 08/09/17 Casey Berry II, DO 08/09/17 Shruti Vergara RN RN Registered Nurse 08/27/20 documented as of this encounter Additional Source Comments PLEASE NOTE: Replies to this message will not be received.[facility]
--- OUTSIDE RECORDS SUMMARY | 2024-03-27 14:50 | XMS_ITS | Encounter Summary ---
Author Organization [facility] [employer] [facility] Address [address] [place] [address] Care Team Providers Care Golf Course Mechanic Name Role Phone Jamal CARLISLE DO, Robert William Primary Care Provide r Unavailable Desiree Patrick MD Unavailable Farrah Nicole APRN,ALEX Unavailable [phone] Bry Echevarria MD Unavailable [phone] Jamal CARLISLE DO, Robert William Unavailable Unav ailable Stephani Aleman MD Primary Care Provider Shruti Vergara RN Unavailable Unavailable Bianka Loera CNP Primary Care Provider [phone] Desiree Patrick MD Primary Care P rovider Encounter Details Date Type Department Care Team (Late st Contact Info) Description 12/01/2006 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 Plant 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 Superintendent Generic Plant Protection Superintendent [address] [place] [address] Social History Tobacco Use Types [...] filedocumented in this encounter Care Teams Golf Course Mechanic Relationship Specialty Start Date End Date Casey Berry II, DO PCP - General 11/22/06 08/17/19 Stephani Aleman MD PCP - General Family Medicine 08/18/19 09/16/20 Bianka Loera CNP [address] [place] [address] PCP - General Nurse Practitioner Family 09/17/2001/10 Desiree Patrcik MD [address] [place] [place] [address] PCP - General Electrophysiology 02/23/22 03/09/22 Desiree Patrick MD [address] [place] [address] 08/09/17 Farrah Nicole APRN,HIGHWAY TECHNICIAN [address] [place] [address] 08/09/17 Bry Echevarria MD [address] [place] [phone] 08/09/17 Casey Berry II, DO 08/09/17 Shruti Vergara, RN RN Registered Nurse 08/27/20 documented as of this encounter Additional Source Comments PLEASE NOTE: Replies to this message will not be received.[facility] and [facility]
--- OUTSIDE RECORDS SUMMARY | 2024-03-27 14:50 | XMS_ITS | Encounter Summary ---
Author Organization [employer] Address [address] [place] [address] Care Team Providers Care Member Services Representative Name Role Phone Jamal CARLISLE DO, Robert William Primary Care Provide r Unavailable Desiree Patrick MD Unavailable Farrah Nicole APRN,FLOORWORKER LASTING Unavailable Bry Echevarria MD Unavailable [phone] Jamal CARLISEL DO, Robert William Unavailable Unav Stephani Diaz MD Primary Care Provider Shruti Vergara RN Unavailable Unavailable Bianka Loera CNP Primary Care Provider [phone] Desiree Patrick MD Primary Care P rovider Encounter Details Date Type Department Care Team (Late st Contact Info) Description 08/22/2014 Historical Conversion [facility] Family Medicine [address] [place] [address] Casey Berry II, DO Social History Tobacco [...] AND PHYSICAL CRISTIAN BLEDSOE : 1945 HX: [id number] DOS: 08/22/2014 CHIEF COMPLAINT: Routine physical. HISTORY [...] alcohol. 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 ALLERGIES: PENICILLIN AND SULFA. HEALTH CARE MAINTENANCE: [...] by:Casey Berry D.O. Sep 06 2014 7:40AM CRANE OILER documented in this encounter Plan of Treatment Not on file documented as of this encounter Visit Diagnoses Not on filedocumented in this encounter Care Teams Member Services Representative Relationship Specialty Start Date End Date Casey Berry II, DO PCP - General 11/22/06 08/17/19 Stephani Aleman MD PCP - General Family Medicine 08/18/19 09/16/20 Bianka Loera CNP [address] [place] [address] PCP - General Nurse Practitioner Family 09/17/2001/10 Desiree Patrick MD [address] [facility] [place] [address] PCP - General Electrophysiology 02/23/22 03/09/22 Desiree Patrick MD [address] [facility] [place] [address] 08/09/17 Farrah Nicole, AUTOMATION AND CONTROL ENGINEER,FLOORWORKER LASTING [address] [facility] [place] [address] 08/09/17 Bry Echevarria MD [facility][note 3] [place] [address] 08/09/17 Casey Berry II, DO 08/09/17 Shruti Vergara RN RN Registered Nurse 08/27/20 documented as of this encounter Additional Source Comments PLEASE NOTE: Replies to this message will not be received.[facility] and [facility]
--- OUTSIDE RECORDS SUMMARY | 2024-03-27 14:50 | XMS_ITS | Clinical Summary ---
Author Organization [facility] Address [address] [place] [address] Care Team Providers Care Harness Worker Name Role Phone Unavailable Primary Care Provider Unavailabl e Source Comments Patient records contain information from all sites at [facility]. For routine questions regarding patient records, call [phone] during business hours, M-F 8:00 AM - 5:00 PM Central Time. Record requests for emergency care only can be directed to [phone] at any time.[facility] Allergies Active Allergy Reactions Criticality Noted Date [...] 2015 Overview (05/17/2023): 4.2 x 4.[address] [facility] Encounters Date Type Department Care Team Description 02/24/2024 1:38 PM CDT - 02/24/2024 11:59 PM CDT Hospital Encounter Department of Radiology in [place], [place] [address] [phone] Vic Mae M.D. Parkinsonism Unspecified (HCC) Discharge Disposition: Home or Self Care 02/23/2024 10:15 AM CDT Comprehensive Visit Department of Neurology in [place], [place] [address] [place] [address] Vic Mae M.D. Parkinsonism Unspecified (HCC) from [...] Comments Blood Pressure 136/82 05/17/2023 1:44 PM NECKTIE STITCHER Pulse 70 05/17/2023 1:44 PM NECKTIE STITCHER Temperature 36.8 ??C (98.2 ??F) 05/17/2023 1:44 PM CS T Respiratory Rate - - Oxygen Saturation - - Inhaled Oxygen Concentration - - Weight 87.3 kg (192 lb 7.4 oz) 05/17/2023 1:44 P M NECKTIE STITCHER Height 184 cm (6' 0.44) 04/15/2023 2:57 [...] Additional history exists Influenza Vaccine (#1) 2024 3, 04/13/2022, 03/25/2021, Additional history exists Office Visit for Blood Press ure Check / Re-check 05/17/2024 05/17/2023 DTaP,Tdap,and Td Vaccines (3 - Td or Tdap) 09/14/2033 09/15/2023, 08/21/2013 Pneumococcal vaccine (65+ years) Completed 08/28/2016, 08/28/2015, 01/28/2010 Zoster Vaccines Completed 11/16/2023, 12/2023, 01/28/2010 Procedures Procedure Name Priority Date/Time Associated [...] abnormal enhancement. Vic JOHN MRI PROCEDURE S from Last 3 Months
--- OUTSIDE RECORDS SUMMARY | 2024-03-27 14:50 | XMS_ITS | Encounter Summary ---
Author Organization [facility] Address [address] [place] [address] Care Team Providers Care Emergency Medical Technician Name Role Phone Jamal CARLISLE DO, Robert William Primary Care Provide r Unavailable Desiree Patrick MD Unavailable Farrah Nicole APRN,DIRECTOR OF CASEWORK Unavailable Bry Echevarria MD Unavailable [phone] Jamal CARLISLE DO, Robert William Unavailable Unav Stephani Diaz MD Primary Care Provider [phone] Shruti Vergara RN Unavailable Unavailable Bianka Loera CNP Primary Care Provider [phone] Desiree Patrick MD Primary Care P rovider Encounter Details Date Type Department Care Team (Late st Contact Info) Description [address] [address] Social History Tobacco Use Types Packs/Day Years [...] on filedocumented in this encounter Care Teams Emergency Medical Technician Relationship Specialty Start Date End Date Casey Berry II, DO PCP - General 11/22/06 08/17/19 Stephani Aleman MD PCP - General Family Medicine 08/18/19 09/16/20 Bianka Loera GAS TURBINE MECHANIC [address] [place] [address] [address] [place] [phone] PCP - General Nurse Practitioner Family 09/17/20 712/31 Desiree Patrick MD [address] [place] [address] PCP - General Electrophysiology 02/23/22 03/09/22 Desiree Patrick MD [address] [place] [address] 08/09/17 Farrah Nicole APRN,DIRECTOR OF CASEWORK [address] [place] [address] 08/09/17 Bry Echevarria MD [address] [place] [address] 08/09/17 Casey Berry II, DO 08/09/17 Shruti Vergara RN RN Registered Nurse 08/27/20 documented as of this encounter Additional Source Comments PLEASE NOTE: Replies to this message will not be received.[facility] and [facility]
--- OUTSIDE RECORDS SUMMARY | 2024-03-27 14:50 | XMS_ITS | Encounter Summary ---
Author Organization [facility] Address [address] [place] [address] Care Team Providers Care Professor Of Practice Name Role Phone Unavailable Primary Care Provider Unavailabl e Reason for Referral * MRI/CAT/PET Scan (Routine) - Closed Specialty Diagnoses / Procedures Referred By Malinda wan Referred To Contact Radiology Diagnoses Parkinsonism Unspecified (HCC) Procedures MR Brain without and with IV Contrast Vic Mae M.D. [address] [address] [facility] Region Referral ID Status Reason Start Date Expiration Date Visits Re quested Visits Authorized [id number] Closed 02/23/2024 02/22/2025 1 1 Reason for Visit * MRI/CAT/PET Scan (Routine) - Closed Specialty Diagnoses / Procedures Referred By Malinda wan Referred To Contact Radiology Diagnoses Parkinsonism Unspecified (HCC) Procedures MR Brain without and with IV Contrast Vic Mae M.D. [address] [address] [facility] Region Referral ID Status Reason Start Date Expiration Date Visits Re quested Visits Authorized [id number] Closed 02/23/2024 02/22/2025 1 1 Encounter Details Date Type Department Care Team (Latest Contact Info) Description 02/24/2024 1:38 PM CDT - 02/24/2024 11:59 PM CDT Hospital Encounter Department of Radiology in [place], [place] [address] [place] [address] Vic Mae M.D. [address] [place] [address] Parkinsonism Unspecified (HCC) Discharge Disposition: [...]
--- OUTSIDE RECORDS SUMMARY | 2024-03-27 14:50 | XMS_ITS | Encounter Summary ---
Author Organization [facility] Address [address] [place] [address] Care Team Providers Care Industrial Property Appraiser Name Role Phone Unavailable Primary Care Provider Unavailabl e Reason for Referral * MRI/CAT/PET Scan (Routine) - Closed Specialty Diagnoses / Procedures Referred By Malinda wan Referred To Contact Radiology Diagnoses Parkinsonism Unspecified (HCC) Procedures MR Brain without and with IV Contrast Vic Mae M.D. [address] [place] [address] [facility] Region Referral ID Status Reason Start Date Expiration Date Visits Re quested Visits Authorized [id number] Closed 02/23/2024 02/22/2025 1 1 Reason for Visit * Reason Comments Parkinson's Disease * Outpatient (Routine) - Closed Specialty Diagnoses / Procedures Referred By Malinda wan Referred To Contact Neurology Diagnoses Parkinsonism Unspecified (HCC) Cameron Poe M.D., M.P.H. [address] [place] [address] [facility] Region Referral ID Status Reason Start Date Expiration Date Visits Re quested Visits Authorized [id number] Closed 01/05/2023 01/05/2024 1 1 Encounter Details Date Type Department Care Team (Latest Contact Info) Description 02/23/2024 10:15 AM CDT Comprehensive Visit Department of Neurology in [place], [place] [address] [place] [address] Vic Mae M.D. 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 Please [...]
--- OUTSIDE RECORDS SUMMARY | 2024-03-27 14:50 | XMS_ITS | Encounter Summary ---
Author Organization [facility] 3 [facility] Address [address] [place] [address] Care Team Providers Care Top Lift Trimmer Name Role Phone Jamal CARLISLE DO, Robert William Primary Care Provide r Unavailable Desiree Patrick MD Unavailable Farrah Nicole APRN,ASSISTANT GOLF PROFESSIONAL Unavailable Bry Echevarria MD Unavailable [phone] Jamal CARLISLE DO, Robert William Unavailable Unav Stephani Diaz MD Primary Care Provider [phone] Shruti Vergara RN Unavailable Unavailable Bianka Loera CNP Primary Care Provider Desiree Patrick MD Primary Care P rovider Encounter Details Date Type Department Care Team (Late st Contact Info) Description 11/19/2015 HIM Home Economist [facility] [place] [address] [place] [address] Dionisio Meneses MD [address] [place] [address] Social History Tobacco Use Types [...] ADULT WITH OR WITHOUT CONTRAST PERFORMED BY: [place] SITE: [place], [place] INTERPRETED BY: [facility] [place], [place] TRANSTHORACIC ECHOCARDIOGRAM REPORT REFERRING DIAGNOSIS: Atrial [...] comparison. Note: This study was performed by [facility] [employer] for [facility]. Only the interpretation wasperformed at the [facility]. Electronically signed Dionisio Meneses MD, [facility] [place] , 04:04 P A vd/Doc#: [id number] cc: Adult Normal Value Adult Patient Values [...] kg Blood pressure: 126/75 Previous study: -- Acid Dumper: Lisa documented in this encounter Plan of [...] - 11/19/2015 12:00 AM CDT PERFORMED BY: [place] SITE: [place] INTERPRETED BY: [facility] [place], [place] TRANSTHORACIC ECHOCARDIOGRAM REPORT REFERRING DIAGNOSIS: Atrial [...] comparison. Note: This study was performed by [facility].Only the interpretation was performed at the [facility]. Electronically signed Dionisio Meneses MD, [facility] [place] , 04:04 P A vd/Doc#: [id number] cc: Adult Normal Value Adult Patient Values [...] kg Blood pressure: 126/75 Previous study: -- Acid Dumper: Lisa Dionisio Meneses MD CAR ULTRASOUND documented in this encounter Visit Diagnoses Not on filedocumented in this encounter Care Teams Top Lift Trimmer Relationship Specialty Start Date End Date Casey Berry II, DO PCP - General 11/22/06 08/17/19 Stephani Aleman MD PCP - General Family Medicine 08/18/19 09/16/20 Bianka Loera PASTE MIXER LIQUID [address] [place] [address] [address] [place] [phone] PCP - General Nurse Practitioner Family 09/17/20 712/31 Desiree Patrick MD [address] [place] [address] PCP - General Electrophysiology 02/23/22 03/09/22 Desiree Patrick MD [address] [place] [address] 08/09/17 Farrah Nicole APRN,ASSISTANT GOLF PROFESSIONAL [address] [place] [id number] 08/09/17 Bry Echevarria MD [address] [place] [phone] 08/09/17 Casey Berry II, DO 08/09/17 Shruti Vergara RN RN Registered Nurse 08/27/20 documented as of this encounter Additional Source Comments PLEASE NOTE: Replies to this message will not be received.[facility] and [facility]
--- OUTSIDE RECORDS SUMMARY | 2024-03-27 14:50 | XMS_ITS ---
Author Organization [facility] Address [address] [place] [address] Care Team Providers Care Laundry Housekeeper Name Role Phone Unavailable Unavailable Unavailable Surgery Details Not on file Complications Check Surgery Details section. Procedure Estimated Blood Loss Check Surgery Details section. Procedure Findings Check Surgery Details section. Procedure Specimens Taken Check Surgery Details section.
--- OUTSIDE RECORDS SUMMARY | 2024-03-27 14:50 | XMS_ITS | Encounter Summary ---
Author Organization [facility] Address [address] [place] [address] Care Team Providers Care Electric System Operator Name Role Phone Jamal CARLISLE DO, Robert William Primary Care Provide r Unavailable Desiree Patrick MD Unavailable Farrah Nicole APRN,INTERSTATE BUS DISPATCHER Unavailable [phone] Bry Echevarria MD Unavailable [phone] Jamal CARLISLE DO, Robert William Unavailable Unav Stephani Diaz MD Primary Care Provider Shruti Vergara RN Unavailable Unavailable Bianka Loera CNP Primary Care Provider Desiree Patrick MD Primary Care P rovider Encounter Details Date Type Department Care Team (Late st Contact Info) Description 08/28/2015 Historical Conversion [facility] Family Medicine [address] [place] [id number] Casey Berry II, DO Social History Tobacco Use Types Packs/Day Years Used Date Smoking Tobacco: Never Assessed Sex and Gender Information Value Date Recorded Sex Assigned at Not on file Gender Identity Not on file Sexual Orientation Not on file documented as of this encounter Last Filed Vital Signs Vital Sign Reading Time Taken Comments Blood Pressure 134/90 08/28/2015 12:00 AM RETENTION SPECIALIST Pulse - - Temperature - - Respiratory Rate - - Oxygen Saturation - - Inhaled Oxygen Concentration - - Weight 90.2 kg (198 lb 13.7 oz) 016 12:00 AM RETENTION SPECIALIST Height 186 cm (6' 1.23) 08/28/2015 12: 00 AM RETENTION SPECIALIST Body Mass Index 26.07 08/28/2015 12:00 AM RETENTION SPECIALIST documented in this encounter Progress Notes * [...] healthy by no longer smoking.; Status:Complete; Done: 75Dkj2619 Reason For Visit Go over CT results. [...] 1 TABLET BY MOUTH ONCE DAILY; Therapy: 21Qnq8750 to (Evaluate:69Ujb3725) Requested for: 43Nbw3155; Last Rx:55Oof4715 Ordered 2. Metoclopramide HCl - 5 MG Oral Tablet; TAKE 1 TABLET BY MOUTH THREE TIMES DAILY WITH MEALS; Therapy: 10Sep2014 to (Evaluate:22Eax0705) Requested for: 82Jya6402; Last Rx:54Fkc0477 Ordered 3. Metoprolol Tartrate 25 MG Oral Tablet; 1/2 to 1 prn a fib Requested for: 28Nsd2645; Last Rx:68Gcy7199 Ordered 4. Tylenol Extra Strength 500 MG Oral Tablet; Therapy: (Recorded:52Eon6857) to Recorded 5. Warfarin Sodium 5 MG Oral Tablet; Take as directed by ACC; Therapy: 33Lmt4510 to (Evaluate:15May2017) Requested for: 20May2016 Recorded Allergies 1. Penicillins 2. Sulfa Drugs Vitals Recorded: 42Rnx6319 10:00AM Systolic 115, RUE, Sitting Diastolic 76, RUE, Sitting Heart Rate 65 Respiration 16 Temperature 97.6 F, Forehead Weight 91.5 kg BMI Calculated 26.45 BSA Calculated 2.16 2+ Falls or 1 Fall with injury in last year? No O2 Saturation 96 Signatures Casey Berry II, D.OWilliam/pj-29 Electronically signed by : Casey Berry DO; Jul 09 2016 1:56PM RETENTION SPECIALIST * Casey Berry II, DO - 03/10/2016 [...] use sparingly qid; Therapy: 18Nov2015 to (Last Rx:65Kdk1138) Requested for: 94Nei3868 Ordered 2. Lisinopril 10 MG Oral Tablet; TAKE 1 TABLET BY MOUTH ONCE DAILY; Therapy: 99Ryd1226 to (Evaluate:95Ctw1646) Requested for: 29Xvi5717; Last Rx:36Nry9439 Ordered 3. Metoclopramide HCl - 5 MG Oral Tablet; TAKE 1 TABLET BY MOUTH THREE TIMES DAILY WITH MEALS; Therapy: 10Sep2014 to (Evaluate:67Mrz7737) Requested for: 16Pxy6025; Last Rx:55Mne0036 Ordered 4. Tylenol Extra Strength 500 MG Oral Tablet; Therapy: (Recorded:89Rkp6662) to Recorded 5. Warfarin Sodium 5 MG Oral Tablet; Take as directed by ACC; Therapy: 58Xim4922 to (Evaluate:95Mii5740) Requested for: 19Feb2016; Last Rx:19Feb2016 Ordered Allergies [...] Vital Signs [Data Includes: Current Encounter] Recorded: 86Eqn7990 10:06AM Blood Pressure 124 / 71 Heart [...] Casey Berry DO; Apr 02 2016 8:50AM RETENTION SPECIALIST * Casey Berry II, DO - 01/28/2016 [...] use sparingly qid; Therapy: 18Nov2015 to (Last Rx:80Pfv0400) Requested for: 56Kwb7101 Ordered 2. Lisinopril 10 MG Oral Tablet; TAKE 1 TABLET BY MOUTH ONCE DAILY; Therapy: 09Szx9552 to (Evaluate:35Vnk0847) Requested for: 54Uku6133; Last Rx:13Gtd7129 Ordered 3. Metoclopramide HCl - 5 MG Oral Tablet; TAKE 1 TABLET BY MOUTH THREE TIMES DAILY WITH MEALS; Therapy: 10Sep2014 to (Evaluate:31Sud1658) Requested for: 28Mia9369; Last Rx:99Ieo4694 Ordered 4. Tylenol Extra Strength 500 MG Oral Tablet; Therapy: (Recorded:18Nov2015) to Recorded 5. Xarelto 15 MG Oral Tablet; TAKE 1 TABLET DAILY Requested for: 08Jan2016; Last Rx:08Jan2016 Ordered Allergies 1. Penicillins 2. Sulfa Drugs Social History 1. Former smoker: 0 - 10 pack years (V15.82) (Z87.891) Vitals Vital Signs [Data Includes: Current Encounter] Recorded: 54Mvb4695 10:31AM Blood Pressure 139 / 83 Heart [...] Casey Berry DO; Feb 11 2016 7:47AM RETENTION SPECIALIST * Casey Berry II, DO - 12/11/2015 12:00 AM CDT Chief Complaint/Reason for Visit f/up ct History of Present Illness This is a 70-year-old male who recently underwent a stress test. The stress test showed no major abnormality, however, it was suggested of an aneurysm. 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 [place] that the CT scan would be a [...] 1 TABLET BY MOUTH ONCE DAILY; Therapy: 69Pwv3386 to (Evaluate:91Hne8548) Requested for: 32Cjz3463; Last Rx:41Vax2050 Ordered 3. Metoclopramide HCl - 5 MG Oral Tablet; TAKE 1 TABLET BY MOUTH THREE TIMES DAILY WITH MEALS; Therapy: 10Sep2014 to (Evaluate:78Ppy2274) Requested for: 03Dec2015; Last Rx:54Mwp7591 Ordered 4. Tylenol Extra Strength 500 MG [...] Casey Berry DO; Dec 30 2015 8:19AM RETENTION SPECIALIST * Casey Berry II, DO - 11/18/2015 12:00 AM CDT Chief Complaint/Reason for Visit ER follow up History of Present Illness This is a 69-year-old male who has a long history of paroxysmal tachycardia. He recently had an episode of paroxysmal tachycardia. He went in to the ER in [place] and found that he had a flutter [...] INHALE ONE SPRAY TWICE DAILY PRN; Therapy: 79Vxp7056 to Requested for: 03Jan2014 Recorded 2. Lisinopril 10 MG Oral Tablet; TAKE 1 TABLET BY MOUTH ONCE DAILY; Therapy: 24Gky4434 to (Evaluate:94Nxs9566) Requested for: 61Pev7467; Last Rx:69Min9067 Ordered 3. Metoclopramide HCl - 5 MG Oral Tablet; TAKE 1 TABLET BY MOUTH THRE E TIMES DAILY WITH MEALS; Therapy: 10Sep2014 to (Evaluate:39Ygc7660) Requested for: 65Hwl9258; Last Rx:46Yjk5520 Ordered 4. Metoprolol Tartrate 25 MG Oral [...] Casey Berry DO; Nov 26 2015 8:06AM RETENTION SPECIALIST documented in this encounter H&P Notes * [...] INHALE ONE SPRAY TWICE DAILY PRN; Therapy: 65Xps8710 to Requested for: 03Jan2014 Recorded 3. Lisinopril 10 MG Oral Tablet; TAKE 1 TABLET BY MOUTH ONCE DAILY; Therapy: 25Brr0869 to (Evaluate:33Nzb4323) Requested for: 64Kxh3831; Last Rx:50Tzp3570 Ordered 4. Metoclopramide HCl - 5 MG Oral Tablet; TAKE 1 TABLET BY MOUTH THRE E TIMES DAILY WITH MEALS; Therapy: 10Sep2014 to (Evaluate:98Hrx1292) Requested for: 43Xcr6603; Last Rx:01Orf8074 Ordered 5. Vitamin D3 1000 UNIT Oral [...] healthy by no longer smoking.; Status:Complete; Done: 08Tzw3685 1.Prevnar shot. 2.CBC, vitamin D, PSA, comp, and lipid. 3.Did discuss with patient about his foot. Signatures Casey Berry II, D.OWilliam/jaj-08 Electronically signed by : Casey Berry DO; Sep 19 2015 8:13AM RETENTION SPECIALIST documented in this encounter Procedure Notes * Casey Berry II, DO - 11/26/2015 12:00 AM CDTAssociated Order(s): NUCLEAR MEDICINE NUCLEAR MEDICINE CRISTIAN BLEDSOE : 1945 HX: [id number] DOS: 11/26/2015 Lexiscan portion of Lexiscan Cardiolite. [...] by:Casey Berry DO Dec 03 2015 7:45AM RETENTION SPECIALIST documented in this encounter Miscellaneous Notes [...] you have any questions. Casey Berry DO [facility] Electronically signed by:DEYANIRA FRANCOIS Sep 09 2015 11:25AM RETENTION SPECIALIST documented in this encounter Plan of Treatment Not on file documented as of this encounter Procedures Procedure Name Priority Date/Time Associated Diagnosis Comments NUCLEAR MEDICINE 11/26/2015 documented in this encounter Results * NUCLEAR MEDICINE (11/26/2015) Anatomical Region Laterality Modality Other Narrative Procedure Note Casey Berry II, DO - 11/26/2015 12:00 AM CDT NUCLEAR MEDICINE CRISTIAN BLEDSOE : 1945 HX: [id number] DOS: 11/26/2015 Lexiscan portion of Lexiscan Cardiolite. BASELINE EKG: Shows no abnormality of note. PROTOCOL: Patient was given Lexiscan and Cardiolite. He had no majorcomplaints. EKG CHANGES NOTED DURING TEST: EKG showed no changes. IMPRESSION: 1. Normal Lexiscan portion of Lexiscan Cardiolite. RECOMMENDATIONS: We will await radiologic portion of test. Casey Berry II, D.O./jaj-23 Electronically signed by:Casey Berry DO Dec 03 2015 7:45AM RETENTION SPECIALIST Casey Berry II, DO RAD NUCLEAR M EDICINE documented in this encounter Visit Diagnoses Not on filedocumented in this encounter Care Teams Electric System Operator Relationship Specialty Start Date End Date Casey Berry II, DO PCP - General 11/22/06 08/17/19 Stephani Aleman MD PCP - General Family Medicine 08/18/19 09/16/20 Bianka Loera MAT MAKER [address] [facility] [address] [place] [address] PCP - General Nurse Practitioner Family 09/17/20 712/31 Desiree Patrick MD [address] [place] [address] PCP - General Electrophysiology 02/23/22 03/09/22 [place] [address] [place] [address] 08/09/17 Farrah Nicole APRN,ALEX [address] [address] 08/09/17 Bry Echevarria MD [address] [place] [address] 08/09/17 Casey Berry II, DO 08/09/17 Shruti Vergara RN RN Registered Nurse 08/27/20 documented as of this encounter Additional Source Comments PLEASE NOTE: Replies to this message will not be received.[facility] hospital and [facility]
--- OUTSIDE RECORDS SUMMARY | 2024-03-27 14:50 | XMS_ITS | Encounter Summary ---
Author Organization [facility] Address [address] [place] [address] Care Team Providers Care Pediatric Care Coordinator Name Role Phone Jamal CARLISLE DO, Robert William Primary Care Provide r Unavailable Desiree Patrick MD Unavailable Farrah Nicole APRN,SAND CONDITIONER Unavailable Bry Echevarria MD Unavailable [phone] Jamal CARLISLE DO, Robert William Unavailable Unav Stephani Diaz MD Primary Care Provider Shruti Vergara RN Unavailable Unavailable Bianka Loera CNP Primary Care Provider [phone] Desiree Patrick MD Primary Care P rovider Encounter Details Date Type Department Care Team (Late st Contact Info) Description 08/22/2014 Historical Conversion [facility] Family Medicine [address] [place] [address] Casey Berry II, DO Social History Tobacco Use Types Packs/Day Years Used Date Smoking Tobacco: Never Assessed Sex and Gender Information Value Date Recorded Sex Assigned at Not on file Gender Identity Not on file Sexual Orientation Not on file documented as of this encounter Last Filed Vital Signs Vital Sign Reading Time Taken Comments Blood Pressure 145/88 08/22/2014 12:00 AM SHELL MOLD BONDER Pulse - - Temperature - - Respiratory Rate - - Oxygen Saturation - - Inhaled Oxygen Concentration - - Weight 90.7 kg (200 lb) 08/22/2014 12:00 AM SHELL MOLD BONDER Height 185.4 cm (6' 1) 08/22/2014 12:00 AM SHELL MOLD BONDER Body Mass Index 26.39 08/22/2014 12:00 AM SHELL MOLD BONDER documented in this encounter Plan of Treatment Not on file documented as of this encounter Visit Diagnoses Not on filedocumented in this encounter Care Teams Pediatric Care Coordinator Relationship Specialty Start Date End Date Casey Berry II, DO PCP - General 11/22/06 08/17/19 Stephani Aleman MD PCP - General Family Medicine 08/18/19 09/16/20 Bianka Loera CNP [address] [place] [address] [address] [place] [address] PCP - General Nurse Practitioner Family 09/17/2001/10 Desiree Patrick MD [address] [place] [address] PCP - General Electrophysiology 02/23/22 03/09/22 Desiree Patrick MD [address] [place] [address] 08/09/17 Farrah Nicole, FACTORY ENGINEER,SAND CONDITIONER [address] [place] [address] 08/09/17 Bry Echevarria MD [address] [place] [address] [facility] [place] [phone] 08/09/17 Casey Berry II, DO 08/09/17 Shruti Vergara RN RN Registered Nurse 08/27/20 documented as of this encounter Additional Source Comments PLEASE NOTE: Replies to this message will not be received.[facility] and [facility]
--- OUTSIDE RECORDS SUMMARY | 2024-03-27 14:50 | XMS_ITS | Encounter Summary ---
Author Organization [facility] Address [address] [place] [address] Care Team Providers Care Optometrist/Practice Owner Name Role Phone Jamal CARLISLE DO, Robert William Primary Care Provide r Unavailable Desiree Patrick MD Unavailable Farrah Nicole APRN,CABLE FERRYBOAT OPERATOR Unavailable Bry Echevarria MD Unavailable [phone] Jamal CARLISLE DO, Robert William Unavailable Unav Stephani Diaz MD Primary Care Provider Shruti Vergara RN Unavailable Unavailable Bianka Loera CNP Primary Care Provider Desiree Patrick MD Primary Care P rovider Encounter Details Date Type Department Care Team (Late st Contact Info) Description 08/22/2014 Historical Conversion [facility] Family Medicine [address] [place] [address] Casey Berry II, DO Social History Tobacco Use Types Packs/Day Years Used Date Smoking Tobacco: Never Assessed Sex and Gender Information Value Date Recorded Sex Assigned at Not on file Gender Identity Not on file Sexual Orientation Not on file documented as of this encounter Progress Notes * Casey Berry II, DO - 01/29/2015 12:00 AM CDT CRISTIAN BLEDSOE : 1945 HX: [id number] DOS: 01/29/2015 CHIEF COMPLAINT: Follow up after [...] by:Casey Berry D.O. Feb 11 2015 7:55AM TONGUE AND QUARTER STITCHER * Casey Berry II, DO - 09/10/2014 12:00 AM CST CRISTIAN BLEDSOE : 1945 HX: [id number] DOS: 09/10/2014 CHIEF COMPLAINT: Follow up of [...] by:Casey Berry D.O. Sep 26 2014 3:33PM TONGUE AND QUARTER STITCHER documented in this encounter Miscellaneous Notes * [...] you have any questions. Casey Berry DO [facility] Electronically signed by:DEYANIRA FRANCOIS Dec 06 2014 9:03AM TONGUE AND QUARTER STITCHER documented in this encounter Plan of Treatment Not on file documented as of this encounter Visit Diagnoses Not on filedocumented in this encounter Care Teams Optometrist/Practice Owner Relationship Specialty Start Date End Date Casey Berry II, DO PCP - General 11/22/06 08/17/19 Stephani Aleman MD PCP - General Family Medicine 08/18/19 09/16/20 Bianka Loera, SPECIAL EFFECTS PERSON [address] [place] [phone] PCP - General Nurse Practitioner Family 09/17/2001/10 Desiree Patrick MD [address] [place] [address] PCP - General Electrophysiology 02/23/22 03/09/22 Desiree Patrick MD [address] [place] [address] 08/09/17 Farrah Nicole APRN,CABLE FERRYBOAT OPERATOR [address] [place] [address] 08/09/17 Bry Echevarria MD [address] [place] [address] [place] [address] 08/09/17 Casey Berry II, DO 08/09/17 Shruti Vergara RN RN Registered Nurse 08/27/20 documented as of this encounter Additional Source Comments PLEASE NOTE: Replies to this message will not be received.[facility]
--- OUTSIDE RECORDS SUMMARY | 2024-03-27 14:50 | XMS_ITS | Encounter Summary ---
Author Organization [facility] [place] [place] [employer] [facility] Address [address] [place] [address] Care Team Providers Care Chemicals Distiller Name Role Phone Jamal CARLISLE DO, Robert William Primary Care Provide r Unavailable Desiree Patrick MD Unavailable Farrah Nicole APRN,COUPON COLLECTION CLERK Unavailable [phone] Bry Echevarria MD Unavailable Jamal CARLISLE DO, Robert William Unavailable Unav Stephani Diaz MD Primary Care Provider Shruti Vergara RN Unavailable Unavailable Bianka Loera CNP Primary Care Provider [phone] Desiree Patrick MD Primary Care P rovider Encounter Details Date Type Department Care Team (Late st Contact Info) Description 11/26/2015 HIM Certified Medical Asst [facility] Heart [facility] Vascular [address] [address] Rajeev Barlow MD Social History [...] Order(s): MYOCARDIAL PERFUSION PHARMACOLOGIC STRESS PERFORMED BY: [facility] [address] [place], [place] SITE: [place], [place] INTERPRETED BY: [facility] [place], [place] PHARMACOLOGIC MYOCARDIAL PERFUSION SCAN Study supervised [...] TYPE: Rest/stress, single isotope gated SPECT imaging. [id number]-[id number]: 12.5 mCi (IV) for the rest injection. Ub07h-GQRIONFLA: 33.1 mCi (IV) for the stress injection. [...] function. Note: This study was performed by [employer]. Only the interpretation was performed at the [facility] [place]. Electronically signed Rajeev Barlow MD, [facility] Teletype Installer , 03:10 P A dsc/Doc#: [id number] cc: documented in this encounter Plan of Treatment Not on file documented as of this encounter Procedures Procedure Name Priority Date/Time Associated Diagnosis Comments MYOCARDIAL PERFUSION PHARMACOLOGIC STRESS 11/26/2015 documented in this encounter Results * MYOCARDIAL PERFUSION PHARMACOLOGIC STRESS (11/26/2015) Anatomical Region Laterality Modality Other 11/26/2015 Narrative Procedure Note Rajeev Barlow MD - 11/26/2015 12:00 AM CDT PERFORMED BY: [employer] [place], [place] SITE: [place], [place] INTERPRETED BY: [place], [place] PHARMACOLOGIC MYOCARDIAL PERFUSION SCAN Study supervised [...] TYPE: Rest/stress, single isotope gated SPECT imaging. Gk94d-BFRMEZLYX: 12.5 mCi (IV) for the rest injection. Tt73o-[id number]: 33.1 mCi (IV) for the stress injection. [...] function. Note: This study was performed by [employer]. Only theinterpretation was performed at the [facility] [place]. Electronically signed Rajeev Barlow MD, [facility] Teletype Installer , 03:10 P A dsc/Doc#: [id number] cc: Rajeev Barlow MD CAR NUC MED/STRESS documented in this encounter Visit Diagnoses Not on filedocumented in this encounter Care Teams Chemicals Distiller Relationship Specialty Start Date End Date Casey Berry II, DO PCP - General 11/22/06 08/17/19 Stephani Aleman MD PCP - General Family Medicine 08/18/19 09/16/20 Bianka Loera CNP [address] [place] [address] PCP - General Nurse Practitioner Family 09/17/2001/10 Desiree Patrick MD [address] [place] [address] PCP - General Electrophysiology 02/23/22 03/09/22 Desiree Patrick MD [address] [facility] [address] 08/09/17 Farrah Nicole APRN,COUPON COLLECTION CLERK [address] [place] [address] 08/09/17 Bry Echevarria MD [address] [place] [address] 08/09/17 Casey Berry II, DO 08/09/17 Shruti Vergara RN RN Registered Nurse 08/27/20 documented as of this encounter Additional Source Comments PLEASE NOTE: Replies to this message will not be received.[facility] and [facility]
--- OUTSIDE RECORDS SUMMARY | 2024-03-27 14:50 | XMS_ITS | Encounter Summary ---
Author Organization Clerk Address [address] [place] [address] Care Team Providers Care Private Equity Analyst Name Role Phone Jamal CARLISLE DO, Robert William Primary Care Provide r Unavailable Desiree Patrick MD Unavailable Farrah Nicole APRN,YARN COMBER Unavailable [phone] Bry Echevarria MD Unavailable Jamal CARLISLE DO, Robert William Unavailable Unav Stephani Diaz MD Primary Care Provider Shruti Vergara RN Unavailable Unavailable Bianka Loera CNP Primary Care Provider Desiree Patrick MD Primary Care P rovider Encounter Details Date Type Department Care Team (Late st Contact Info) Description 11/07/2015 Historical Conversion [facility] Family Medicine [address] [place] [id number] Moon Maloney MD Social History Tobacco Use [...] Body Mass Index 26.65 08/28/2015 12:00 AM CDL PROGRAM COORDINATOR documented in this encounter Progress Notes * Moon Maloney MD - 11/06/2016 12:00 AM CDT UROLOGY [facility] CRISTIAN BLEDSOE : 1945 HX: [id number] DOS: 11/06/2016 SUBJECTIVE: Cristian and his are here to discuss the results of the recent prostate biopsy. We ended up taking Anurag off his Coumadin and doing a prostate biopsy because of a positive MASTIC FLOOR LAYER-3 test and an elevated PSA, so he [...] prostatectomy. Moon Maloney M.D./la-1 cc: Jose Winslow M.D./[facility] cc: Casey Berry II, D.O./[facility] Electronically signed by:Moon Maloney M.D. Nov 09 2016 1:49PM CDL PROGRAM COORDINATOR * Moon Maloney MD - 10/23/2016 12:00 AM CDT UROLOGY [facility] CRISTIAN BLEDSOE : 1945 HX: [id number] DOS: 10/23/2016 SUBJECTIVE: Cristian is here for a prostate biopsy. I saw Cristian in August. PSA has started to go up.He had a little bit of an elevated PSA and elevated PSA velocity. We did a MASTIC FLOOR LAYER-3 test. It did just come back positive. [...] negative. IMPRESSION: 1. Elevated PSA and positive MASTIC FLOOR LAYER-3 test. PLAN: I told Anurag to take [...] Moon Maloney M.D./la-17 cc: Casey Berry II, D.OWilliam/[facility] Electronically signed by:Moon Maloney M.D. Oct 26 2016 12:13PM CDL PROGRAM COORDINATOR * Moon Maloney MD - 08/27/2016 12:00 AM CST UROLOGY [facility]RISTIAN BLEDSOE : 1945 HX: [id number] DOS: 08/27/2016 SUBJECTIVE: Cristian comes to see [...] because we are going to do a MASTIC FLOOR LAYER-3 test. LABORATORY DATA: AUA symptom score is 1. He has absolutely no trouble urinating. PSA is 5.4. IMPRESSION: 1. Elevated PSA velocity. PLAN: We are going to go ahead and get a MASTIC FLOOR LAYER-3 test because his velocity is really if [...] going to go ahead and get a MASTIC FLOOR LAYER-3 test today. Obviously if that is positive, [...] course risks of bleeding. However, if the MASTIC FLOOR LAYER-3 is negative, then I would just see him in six months for a PSA. Total time spent with the patient was 25 minutes with greater than 50% in counseling. Moon Maloney M.D./la-21 cc: Casey Berry II, D.OWilliam/[facility] Electronically signed by:Moon Maloney M.D. Sep 18 2016 1:34PM CDL PROGRAM COORDINATOR * Moon Maloney MD - 02/11/2016 12:00 AM CDT UROLOGY [facility]RISTIAN BLEDSOE : 1945 HX: [id number] DOS: 02/11/2016 SUBJECTIVE: Cristian comes to see [...] Moon Maloney M.D./la-2 cc: Casey Berry, II, D.O./[facility] Electronically signed by:Moon Maloney M.D. Feb 24 2016 9:43AM CDL PROGRAM COORDINATOR * Moon Maloney MD - 11/07/2015 12:00 AM CDT UROLOGY [facility]RISTIAN BLEDSOE : 1945 HX: [id number] DOS: 11/07/2015 REFERRING PROVIDER: Dr. Berry. HISTORY [...] He is a former smoker, retired from [employer], he is . FAMILY HISTORY: Negative for [...] Moon Maloney M.D./la-29 cc: Casey Berry II, D.O./[facility] Electronically signed by:Moon Maloney M.D. Nov 25 2015 10:34AM CDL PROGRAM COORDINATOR documented in this encounter Plan of Treatment Not on file documented as of this encounter Visit Diagnoses Not on filedocumented in this encounter Care Teams Private Equity Analyst Relationship Specialty Start Date End Date Casey Berry II, DO PCP - General 11/22/06 08/17/19 Stephani Aleman MD PCP - General Family Medicine 08/18/19 09/16/20 Bianka Loera CNP [address] [facility] [address] [place] [address] PCP - General Nurse Practitioner Family 09/17/2001/10 [place] [address] [place] [address] PCP - General Electrophysiology 02/23/22 03/09/22 Desiree Patrick MD [address] [facility] [place] [address] 08/09/17 Farrah Nicole APRN,YARN COMBER [address] [facility] [place] [address] 08/09/17 Bry Echevarria MD [address] [place] [address] [facility] [place] [address] 08/09/17 Casey Berry II, DO 08/09/17 Shruti Vergara RN RN Registered Nurse 08/27/20 documented as of this encounter Additional Source Comments PLEASE NOTE: Replies to this message will not be received.[facility]
--- OUTSIDE RECORDS SUMMARY | 2024-03-27 14:51 | XMS_ITS | Clinical Summary ---
Author Organization [facility] Address [address] [place] [address] Care Team Providers Care Research And Development Chemist Name Role Phone Unavailable Primary Care Provider Unavailabl e Source Comments You are receiving this document as you are listed as the primary care provider,follow-up provider, or the patient has been referred to you for consultation.This is in compliance with the Medicare and[facility] Hospitalcaid EHR Incentive Program,which states Providers who transition their patient to another setting of careor provider of care or refers their patient to another provider of care shouldprovide summary care record for each transition of care or referral. [place] [facility] Allergies Active Allergy Reactions Criticality Noted Date [...] Type Department Care Team Description 02/15/2024 Telephone [facility] [address] [place] [address] Ashely El, RN WEIGHT LOSS [...] MTM Covered 1945 Adult Preventive Visit 1962 RSV (1 - 1-dose 75+ series) 11/23/2019 Zoster/Shingles (3 of 3) 11/10/2023 09/15/2023, 01/10 COVID-19 Vaccine (2023- season) 2024 04/17/2023, 05/07/2022, 11/04/2021, Additional history exists Influenza (#1) 2024 05/04/2023, 09/2021, 03/25/2021, Additional [...] on patient's age to complete this topic [address] [facility] [place] [id number]
--- OUTSIDE RECORDS SUMMARY | 2024-03-27 14:51 | XMS_ITS | Encounter Summary ---
Author Organization [facility] Address [address] [place] [address] Care Team Providers Care Executive Chef Name Role Phone Unavailable Primary Care Provider Unavailabl e Reason for Visit * Reason Comments WEIGHT LOSS Encounter Details Date Type Department Care Team (Late st Contact Info) Description 02/15/2024 Telephone [facility] [address] [place] [address] Ashely El, RN WEIGHT LOSS Social History [...]
--- OUTSIDE RECORDS SUMMARY | 2024-03-27 14:51 | XMS_ITS | Continuity of Care Document ---
Author Organization [facility] Address [address] [place] [address] Phone Care Team Providers Care Agricultural Agent Name Role Phone Triston TRENT, PhD, Fabio Unavailable Unavai lable Allergies, Adverse Reactions, Alerts Substance Reaction Status Criticality Sulfa (Sulfonamide Antibiotics) Active No Information Penicillins Hives, Dermatitis Active No Informa tion Procedures Procedure Date Office/Outpatient Visit,[facility], [facility] [place] Advance Directives Directive Yes / No Effective Date File Name No Information Encounters Encounter Description Practice Location Reason(s) For Visit Diagnoses Date Provider Providers Copied on Encounter [facility], [address], [place], [place], [id number], [place] tel:[phone] No Information Triston Mccarthy. [facility], [address] [place] [address] [address], [place], [address], [place]. tel:[phone] Office/Outpat ient Visit,[facility] [place] [facility], [address], [place], [place], [id number], [place] tel:[phone] [facility] [place] L4 fracture, initial encounter for closed fracture Kev Pfeiffer. [facility], [address] [place] [address] [address], [place], [address], [place]. tel:[phone] Referring Provider: Marli Sanders, [address], [address]. tel:[phone] Family History Family Member Type Diagnosis Age At Onset Father Problem (finding) Cancer, unknown type Payers Payer name Insurance type Covered alliance party ID Viet dillon(s) [facility] [id number] Social History Type Description Quantity Date Captured [...]
--- OUTSIDE RECORDS SUMMARY | 2024-03-27 14:51 | XMS_ITS | Continuity of Care Document ---
Author Organization [facility] Address [address] [place] [phone] Phone Care Team Providers Care Bingo Cashier Name Role Phone Timoteo Acosta D.O. Unavailable [...] Diagnoses Date Provider Providers Copied on Encounter [facility], [address] [place] [address], [id number], tel:[phone] [facility] No Information Dave Mahmood. [address] [place] [address], [id number], [place]. tel:[phone] [facility], [address] [place] [address], [id number], [place] tel:[phone] [facility] No Information Dave Mahmood. [address] [place] [address], [id number], [place]. tel:[phone] Referring Provider: Cherelle Borja [facility] [address], [place], [address]. tel:[phone] [facility], [address] [place] [address], [id number], [place] tel:[phone] [facility] No Information Dave Mahmood. [address] [place] [address], [id number], [place]. tel:[phone] Referring Provider: Cherelle Borja [facility] [address], [place], [address]. tel:[phone] OFFICE/OUTPATI ENT VISIT, EST [facility], [address] [place] [address], [id number], [place] tel:[phone] [facility] decreased vision (chief complaint) PCO-OSDrusen (degenerative ) of macula, left eye Dave Mahmood. [address] [place] [address], [id number], [place]. tel:[phone] Referring Provider: Cherelle Borja [facility] [address], [place], [address]. tel:[phone] [facility], [address] [place] [address], [id number], tel:[phone] [facility] No Information Dave Mahmood. [address] [place] [address], [id number], . tel:[phone] Referring Provider: Timoteo Zhao, [address] [place] [address], [id number]. tel:[phone] [facility], [address] [place] [address], [id number], tel:[phone] [facility] No Information Dave Mahmood. [address] [place] [address], [id number], [place]. tel:[phone] Referring Provider: Timoteo Zhao, [address] [place] [address], [address] [place] [address]. tel:[phone] OFFICE/OUTPATI ENT VISIT, [facility], [address] [place] [address], [address] [place] [address], tel:[phone] [facility] blurry vision (chief complaint) Cat-combined- ODCat-Pseudop hakia Dave Mahmood. [address] [place] [address], [id number], [place]. tel:[phone] Referring Provider: Timoteo Zhao, [address] [place] [address], [address] [place] [address]. tel:[phone] [facility], [address] [place] [address], [id number], [place] tel:[phone] [facility] No Information Dave Mahmood. [address] [place] [address], [id number], [place]. tel:[phone] Referring Provider: Timoteo Zhao, [address] [place] [address], [id number]. tel:[phone] [facility], [address] [place] [address], [id number], tel:[phone] [facility] No Information Dave Mahmood. [address] [place] [address], [id number], [place]. tel:[phone] Referring Provider: Timoteo Zhao, [address] [place] [address], [id number]. tel:[phone] [facility], [address] [place] [address], [id number], tel:[phone] [facility] No Information Dave Mahmood. [address] [place] [address], [id number], [place]. tel:[phone] Referring Provider: Timoteo Zhao, [address] [place] [address], [id number]. tel:[phone] [facility], [address] [place] [address], [id number], tel:[phone] [facility] No Information Dave Mahmood. [address] [place] [address], [id number], [place]. tel:[phone] Referring Provider: [facility] [address], [place], [address]. tel:[phone] OFFICE/OUTPATI ENT VISIT, [facility], [address] [place] [address], [id number], [place] tel:[phone] [facility] 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 [address] [place] [address], [id number], [place]. tel:[phone] Referring Provider: Cherelle Borja [facility] [address], [place], [address]. tel:[phone] [facility], [address] [place] [address], [id number], [place] tel:[phone] [facility] No Information Dave Mahmood. [address] [place], [place], [id number], . tel:[phone] Referring Provider: Timoteo Zhao, [address] [place], [address]. tel:[phone] Family History Family Member Type Diagnosis Age At Onset No Information Payers Payer name Insurance type Covered democrat ID Veit dillon(s) [facility] [id number] Social History Type Description Quantity Date Captured [...]
--- NOTE | 2024-03-27 15:00 | CRLHL7_ITS ---
For Patients: As a result of the 21st Century Cures Act, medical imaging exams and procedure reports are released immediately into your electronic medical record. You may view this report before your referring provider. If you have questions, please contact your health care provider. INDICATION: Unexplained weight loss TECHNIQUE: CT abdomen and pelvis acquired with 81 cc Isovue 370 IV contrast. COMPARISON: None. FINDINGS: Lower chest: Right middle lobe solid pulmonary nodule measuring 5 mm (3/12). Bibasilar atelectasis. No pleural or pericardial effusion. Left atrial enlargement. Moderate mitral annular and aortic annular calcifications. Liver: Unremarkable. Normal in size and attenuation. No suspicious masses. Gallbladder and bile ducts: Unremarkable. No stones or inflammation. No biliary dilatation. Pancreas: Unremarkable. No mass or inflammation. Spleen: Unremarkable. Normal in size. No masses. Adrenal glands: Unremarkable. No nodules. Kidneys: Bilateral renal cysts and additional subcentimeter hypoattenuating lesions too small to accurately characterize but also likely cysts. No suspicious masses, stones, or hydronephrosis. GI tract: Mildly distended fluid-filled stomach. Prominence of the ileocecal valve without definite mass in this location, nonspecific. The sigmoid colon is largely decompressed although abnormality. No evidence of obstruction or inflammation. Normal appendix. Vasculature: Abdominal aorta is normal in caliber. Mesenteric arteries are patent. Lymph nodes: No lymphadenopathy. Peritoneum/Abdominal Wall: Unremarkable. No sign of mass or infiltration. No free air or significant free fluid. Pelvis: Unremarkable. Bones: Age-indeterminate fracture and sclerosis of the L4 vertebral body with suspected soft tissue component along the anterior aspect measuring approximately 1.8 x 2.7 cm (). The L4-L5 disc space appears expanded although this is not well evaluated on this study. IMPRESSION: 1. Age-indeterminate, possibly pathologic, L4 vertebral body fracture with possible soft tissue component. The L4-L5 disc space also appears expanded, although this is not well evaluated on this study. Recommend further evaluation with contrast enhanced lumbar spine MRI. 2. Prominence of the ileocecal valve without definite mass in this location, nonspecific, and may be within limits of normal. Attention on follow-up. 3. Right middle lobe solid pulmonary nodule measuring 5 mm. Depending on patient risk factors, optional follow-up CT can be performed in 12 months to evaluate stability. Please note that all CT scans at this facility use dose modulation, iterative reconstruction, and/or weight-based dosing when appropriate to reduce radiation dose to as low as reasonably achievable. Dictated by Iris Leiva MD @ 03/28/2024 10:30:31 AM (Electronically Signed)
== END 2024-03-27 14:45 | disposition home or self-care (01) ==
LOC: CT 14:44
PROVIDERS: PCP Family Medicine; Visit Provider Family Medicine
DX: R63.4 Abnormal weight loss (principal); M84.48XA Pathological fracture, other site, initial encounter for fracture; R91.8 Other nonspecific abnormal finding of lung field
CPT/HCPCS: 74177; Q9967

== ENCOUNTER 2024-04-18 12:11 | Outpatient (CLI) | payer BC, SELFPAY ==
--- OUTSIDE RECORDS SUMMARY | 2024-04-21 13:16 | XMS_ITS | Clinical Summary ---
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 More than 4 times per year 04/04/2021 Do you belong to any clubs o r organizations such as episcopal groups, unions, fraternal or athletic groups, or [...] place to sleep or slept in a care home (including now)? No 04/04/2021 Depression (PHQ-9) Answer Date Recorded Last PHQ-9 Score Not on file 08/27/2022 Thoughts of self harm Not at all 08/27/2022 Education Answer Date Recorded What is the highest level of school you have completed or the highest degree you have received? Master's degree (e.g., MA, MS, Mirlande, MEd, HEEL CUTTER, ROHIT) 08/19/2020 Sex and Gender Information Value [...] Health Maintenance Due Date Last Done Comments Depression Screening 1957 Respiratory Syncytial Virus (RSV) Vaccine (1 - 1-dose 60+ series) 2004 Varicella Zoster Sequential (2 of 3) 03/25/2010 01/28/2010 DTaP/Tdap/Td Vaccines (2 - Td or Tdap) 08/21/2023 08/21/2013, 12/26/2002 COVID-19 Vaccine ( season) 2024 11/04/2021, 04/29/2021, 09/05/2020, Additional history [...] HEPATITIS C AB Routine 08/26/2021 10:09 AM LOSS PREVENTION GUARD Need for hepatitis C screening test COLONOSCOPY Routine 02/27/2020 8:05 AM CDT LIPID PANEL Routine 08/18/2019 9:23 AM LOSS PREVENTION GUARD Screening for lipid disorders from Last 3 Months or Most Recently Relevant to Health Maintenance Results * (ABNORMAL) HEPATITIS C AB (08/26/2021 10:09 AM LOSS PREVENTION GUARD) HCV Ab Reactive( A) Nonreactive 08/26/2021 7:41 PM LOSS PREVENTION GUARD [facility] Comment: This is a reportable disease sent to the [place] [facility]. 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 State of associated disease not determined. Blood VENOUS BLOOD / Unknown Venipuncture / Unknown 08/26/2021 10:09 AM LOSS PREVENTION GUARD 08/26/2021 10:09 AM LOSS PREVENTION GUARD Bianka Loera TELECOM SPECIALIST LAB SEROLOGY ORDERAB LES [facility] [address] [place] [address] * COLONOSCOPY (02/27/2020 8:05 AM CDT) 02/27/2020 8:05 AM CDT Narrative [facility] END[facility] - 02/27/2020 9:20 AM CDT [facility] Patient Name: Rohan Carroll Procedure Date: 02/27/2020 8:05 AM Date of : 1945 Admit Type: Outpatient Age: 74 Room: [facility] Gender: Male Note Status: Finalized Attending [...] of the bowel preparation was ?excellent. The [id number] was introduced through the anus ?and advanced [...] 8:05 AM Stephani Aleman MD GI PROCEDURES [employer] ENDO * (ABNORMAL) LIPID PANEL (08/18/2019 9:23 AM LOSS PREVENTION GUARD) Cholesterol 96 0 - 200 mg/dL 08/18/2019 7:32 PM LOSS PREVENTION GUARD [facility] Triglycerides 65 30 - 150 mg/dL 08/18/2019 7:32 PM [facility] Cholesterol, LDL (Calculated) 45 0 - 159 mg/dL 08/18/2019 7:32 PM [facility] Cholesterol, HDL 38(L) >40 mg/dL 08/18/19 20 7:32 PM [facility] Cholesterol, vLDL 13 mg/dL 020 7:32 PM [facility] Blood VENOUS BLOOD SPECIMEN / Unknown Venipuncture / Unknown 08/18/2019 9:23 AM LOSS PREVENTION GUARD 08/18/2019 9:23 AM LOSS PREVENTION GUARD Stephani Aleman MD LAB CHEMISTRY ORDERA BLES [facility] [address] [place] [address] from Last 3 Months or Most Recently Relevant to Health Maintenance Rohan Carroll Personal/Family Self 1945 [facility] [address] [place] [address] Rohan Carroll Personal/Family Self 1945 [facility] [address] [place] [address] Rohan Carroll Personal/Family Self 1945 [facility] [employer] [address] [place] [address] Rohan Carroll Personal/Family Self 1945 [facility] [employer] [address] [place] [address] Rohan Carroll Personal/Family Self 1945 [facility] [employer] 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 Advanced Directives 08/23/2014 3:05 PM [facility] * Full Code (Latest Code Status on File) Date Activated Date Inactivated Comments 06/21/2017 3:50 PM 06/24/2017 4:37 PM * Full Code Date Activated Date Inactivated Comments 10/19/2016 4:45 PM 10/20/2016 8:57 PM * Full Code Date Activated Date Inactivated Comments 11/15/2015 11:16 PM 11/16/2015 11:46 AM Care Teams Public Health Doctor Relationship Specialty Start Date End Date Desiree Patrick MD [address] [place] [address] 08/09/17 Farrah Nicole APRN,SPECIAL EVENTS DIRECTOR [address] [place] [address] 08/09/17 Bry Echevarria MD [address] [place] [address] [place] [address] 08/09/17 Casey Berry II, DO 08/09/17 Shruti Vergara RN RN Registered Nurse 08/27/20 Additional Source Comments PLEASE NOTE: Replies to this message will not be received.[facility]
--- OUTSIDE RECORDS SUMMARY | 2024-04-21 13:16 | XMS_ITS | Clinical Summary ---
Author Organization [employer] Address [place], [place] [address] Care Team Providers Care Heat Treat Supervisor Name Role Phone Marli Sauceda MD [...] labs/EKG February 2024 180 Capsule 03/06/2024 Active Active Problems Problem Noted Date Diagnosed Date Ascending aorta dilatation 04/24/2022 PAF (paroxysmal atrial fibrillation) 04/24/2022 Parkinson disease 04/24/2022 Encounters Date Type Department Care Team Description 04/20/2024 8:30 AM CDT Office Visit [facility] [address] [place] [address] Shyann Griggs MD Arrived 03/09/2024 Orders Only [facility] Scanner 1 scan: (1-Ord) [facility], 03/09/2024 03/09/2024 Orders Only [facility] Scanner 1 scan: (1-Ord) SINUS RHYTHM WITH MARKED SINUS ARRHYTHMIA, 03/09/2024 02/16/2024 1:00 PM CDT Ancillary Procedure [facility] [address] [place] [address] 02/16/2024 Travel 02/15/2024 Telephone [facility] [address] [facility] [address] [place] [address] Kiya Gomes RN Medication Management [...] 65+ (1 of 1 - PCV) 2009 RSV vaccine for adults or (1 - 1-dose 75+ series) 11/23/2019 COVID-19 vaccine series ( season) 2024 05/07/2022, 11/04/2021, 04/29/2021, Additional history [...] CDT ECHOCARDIOGRAM CRISTIAN BLEDSOE ? Accession#: ?? [id number] : ?1945 78 years Study Date: ?? 02/16/2024 1:17:37 PM Gender: M ?BP: ? 116/68 mmHg Height: 185.00 cm ?BSA: ?2.10 m? ? ? Weight: 86.00 kg ? Tech: ? MSR ? Referring MD: SHYANN GRIGGS Site: ? [facility] Reading Location: Mobile OP Patient Location: [...] . This study was interpreted by an [facility] accredited facility. CC: HIM (med [facility]) [facility]. ??Final ?? Procedure Note Kofi Connolly MD - 02/16/2024 ECHOCARDIOGRAM CRISTIAN BLEDSOE : 1945 78 years Study Date: 02/16/2024 1:17:37 PM Gender: M BP: 116/68 mmHg Height: 185.00 cm BSA: 2.10 m? ? ? Weight: 86.00 kg Tech: MSR Referring MD: SHYANN GRIGGS Site: [facility] Reading Location: Mobile OP [...] (V) 1.89 cm? ? ? AI P / 1079 msec VTI 0.40 m KAROL[place] (I) [...] interpreted by an [facility] accredited facility. CC: [facility] (med records) [facility]. Final Shyann Grigsg MD ECHO ORD from Last 3 Months Care Teams Heat Treat Supervisor Relationship Specialty Start Date End Date Marli Sauceda MD [address] [place] [address] PCP - General Family Practice 03/13/22
--- OUTSIDE RECORDS SUMMARY | 2024-04-21 13:17 | XMS_ITS | Referral Summary ---
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 More than 4 times per year 04/04/2021 Do you belong to any clubs o r organizations such as zoroastrian groups, unions, fraternal or athletic groups, or [...] Master's degree (e.g., MA, MS, Mirlande, MEd, LENS SILVERER, ROHIT) 08/19/2020 Sex and Gender Information Value [...] HEPATITIS C AB Routine 08/26/2021 10:09 AM GENERAL MERCHANDISE MANAGER Need for hepatitis C screening test COLONOSCOPY Routine 02/27/2020 8:05 AM CDT LIPID PANEL Routine 08/18/2019 9:23 AM GENERAL MERCHANDISE MANAGER Screening for lipid disorders from Last 3 Months or Most Recently Relevant to Health Maintenance Results * (ABNORMAL) HEPATITIS C AB (08/26/2021 10:09 AM GENERAL MERCHANDISE MANAGER) HCV Ab Reactive( A) Nonreactive 08/26/2021 7:41 PM GENERAL MERCHANDISE MANAGER [facility] Comment: This is a reportable disease sent to the [facility]. 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 State of associated disease not determined. Blood VENOUS BLOOD / Unknown Venipuncture / Unknown 08/26/2021 10:09 AM GENERAL MERCHANDISE MANAGER 08/26/2021 10:09 AM GENERAL MERCHANDISE MANAGER Bianka Loera [facility] LAB SEROLOGY ORDERAB LES Performing Organization Address [facility] Co de Phone Number [facility] [address] [place] [address] * COLONOSCOPY (02/27/2020 8:05 AM CDT) 02/27/2020 8:05 AM CDT Narrative [facility] - 02/27/2020 9:20 AM CDT [facility] Patient Name: Rohan Carroll Procedure Date: 02/27/2020 8:05 AM Date of : 1945 Admit Type: Outpatient Age: 74 Room: [facility] Gender: Male Note Status: Finalized Attending [...] of the bowel preparation was ?excellent. The [id number] was introduced through the anus ?and advanced [...] 8:05 AM Stephani Aleman MD GI PROCEDURES [employer] ENDO * (ABNORMAL) LIPID PANEL (08/18/2019 9:23 AM GENERAL MERCHANDISE MANAGER) Cholesterol 96 0 - 200 mg/dL 08/18/2019 7:32 PM GENERAL MERCHANDISE MANAGER [facility] Triglycerides 65 30 - 150 mg/dL 08/18/2019 7:32 PM GENERAL MERCHANDISE MANAGER [facility] Cholesterol, LDL (Calculated) 45 0 - 159 mg/dL 08/18/2019 7:32 PM GENERAL MERCHANDISE MANAGER [facility] Cholesterol, HDL 38(L) >40 mg/dL 08/18/19 20 7:32 PM GENERAL MERCHANDISE MANAGER [facility] Cholesterol, vLDL 13 mg/dL 020 7:32 PM [facility] Blood VENOUS BLOOD SPECIMEN / Unknown Venipuncture / Unknown 08/18/2019 9:23 AM GENERAL MERCHANDISE MANAGER 08/18/2019 9:23 AM GENERAL MERCHANDISE MANAGER Stephani Aleman MD LAB CHEMISTRY ORDERA JOSH [facility] [facility] [address] [place], [place] [id number] from Last 3 Months or Most Recently Relevant to Health Maintenance Advance Directives Documents on File Type Date Recorded Patient Crayon Sorting Machine Feeder Expl anation Advanced Directives 08/23/2014 3:05 PM [facility] * Full Code (Latest Code Status on File) Date Activated Date Inactivated Comments 06/21/2017 3:50 PM 06/24/2017 4:37 PM * Full Code Date Activated Date Inactivated Comments 10/19/2016 4:45 PM 10/20/2016 8:57 PM * Full Code Date Activated Date Inactivated Comments 11/15/2015 11:16 PM 11/16/2015 11:46 AM Care Teams Financial Investment Manager Relationship Specialty Start Date End Date Desiree Patrick MD [address] [place] [phone] 08/09/17 Farrah Nicole APRN,PALLIATIVE CARE PHYSICIAN [address] [place] [address] 08/09/17 Bry Echevarria MD [address] [place] [phone] 08/09/17 Casey Berry II, DO 08/09/17 Shruti Vergara, RN RN Registered Nurse 08/27/20 Additional Source Comments PLEASE NOTE: Replies to this message will not be received.[facility]
--- OUTSIDE RECORDS SUMMARY | 2024-04-21 13:17 | XMS_ITS | Encounter Summary ---
Author Organization [facility] [employer] [facility] Address [address] [place] [address] Care Team Providers Care Traveling Crane Operator Name Role Phone Jamal CARLISLE DO, Robert William Primary Care Provide r Unavailable Desiree Patrick MD Unavailable Farrah Nicole APRN,HIGHWAY TECHNICIAN Unavailable Bry Echevarria MD Unavailable Jamal CARLISLE DO, Robert William Unavailable Unav Stephani Diaz MD Primary Care Provider Shruti Vergara RN Unavailable Unavailable Bianka Loera CNP Primary Care Provider [phone] Desiree Patrick MD Primary Care P rovider Encounter Details Date Type Department Care Team (Late st Contact Info) Description 02/06/2019 HIM Household Coordinator [facility] [address] [address] Rakesh Williamson Chi, MD Social History Tobacco [...] ADULT WITH OR WITHOUT CONTRAST PERFORMED BY: [facility] [place] SITE: [facility] [place] INTERPRETED BY: [facility] [place] [place] TRANSTHORACIC ECHOCARDIOGRAM REPORT REFERRING DIAGNOSIS: Sleep [...] function. Note: This study was performed by [employer] [facility] [place]. Only the interpretation was performed at the [facility] [place]. Electronically signed Rakesh Williamson MD Cereal Popper , 06:42 A A felipa/Doc#: [id number] cc: Antoine Fitzpatrick MD Adult Normal Value [...] Blood pressure: 139/86 mmHg Previous study: 01/06/2017 Stock Cutter: KRISTA documented in this encounter Plan of [...] - 02/06/2019 12:00 AM CDT PERFORMED BY: [facility] [place] SITE: [facility] [place] INTERPRETED BY: [facility], [place] TRANSTHORACIC ECHOCARDIOGRAM REPORT REFERRING DIAGNOSIS: Sleep [...] function. Note: This study was performed by [employer] alessio [place]. Only theinterpretation was performed at the [facility]. Electronically signed Rakesh Williamson MD Cereal Popper , 06:42 A A felipa/Doc#: [id number] cc: Antoine Fitzpatrick MD Adult Normal Value [...] Blood pressure: 139/86 mmHg Previous study: 01/06/2017 Stock Cutter: KRISTA Antoine Fitzpatrick MD,PHD CAR ULTR[place] documented in this encounter Visit Diagnoses Not on filedocumented in this encounter Care Teams Traveling Crane Operator Relationship Specialty Start Date End Date Casey Berry II, DO PCP - General 11/22/06 08/17/19 Stephani Aleman MD PCP - General Family Medicine 2/7/20 3/8/21 Bianka Loera, GRINDER OPERATOR SURFACE TOOL [address] [place] [phone] PCP - General Nurse Practitioner Family 09/17/20 712/31 Desiree Patrick MD [address] [place] [address] PCP - General Electrophysiology 02/23/22 03/09/22 Desiree Patrick MD [address] [place] [address] 08/09/17 Farrah Nicole APRN,HIGHWAY TECHNICIAN [address] [place] [address] 08/09/17 Bry Echevarria MD [facility] [place] [phone] 08/09/17 Casey Berry II, DO 08/09/17 Shruti Vergara, RN RN Registered Nurse 08/27/20 documented as of this encounter Additional Source Comments PLEASE NOTE: Replies to this message will not be received.[facility] and [facility]
--- OUTSIDE RECORDS SUMMARY | 2024-04-21 13:17 | XMS_ITS | Encounter Summary ---
Author Organization [employer] Address [address] [place] [address] Care Team Providers Care Slicing Machine Feeder Name Role Phone Jamal CARLISLE DO, Robert William Primary Care Provide r Unavailable Desiree Patrick MD Unavailable Farrah Nicole APRN,REGIONAL SALES CONSULTANT Unavailable Bry Echevarria MD Unavailable [phone] Jamal CARLISLE DO, Robert William Unavailable Unav Stephani Diaz MD Primary Care Provider [phone] Shruti Vergara RN Unavailable Unavailable Bianka Loera CNP Primary Care Provider [phone] Desiree Patrick MD Primary Care P rovider Encounter Details Date Type Department Care Team (Late st Contact Info) Description 09/07/2017 Historical Conversion [facility] Family Medicine [address] [place] [address] Casey Berry II, DO Social History Tobacco [...] Comments Blood Pressure 144/85 09/07/2017 12:00 AM VP COMMUNICATIONS Pulse - - Temperature - - Respiratory Rate - - Oxygen Saturation - - Inhaled Oxygen Concentration - - Weight 94.3 kg (207 lb 14.3 oz) 018 12:00 AM VP COMMUNICATIONS Height 185.5 cm (6' 1.03) 09/07/2017 1 2:00 AM VP COMMUNICATIONS Body Mass Index 27.4 09/07/2017 12:00 AM VP COMMUNICATIONS documented in this encounter Functional Status [...] on filedocumented in this encounter Care Teams Slicing Machine Feeder Relationship Specialty Start Date End Date Casey Berry II, DO PCP - General 11/22/06 08/17/19 Stephani Aleman MD PCP - General Family Medicine 08/18/19 09/16/20 Bianka Loera CNP [address] [facility] [address] [place] [address] PCP - General Nurse Practitioner Family 09/17/2001/10 [place] [address] [place] [address] PCP - General Electrophysiology 02/23/22 03/09/22 Desiree Patrick MD [address] [place] [address] 08/09/17 Farrah Nicole APRN,REGIONAL SALES CONSULTANT [address] [place] [address] 08/09/17 Bry Echevarria MD [address] [place] [address] [place] [address] 08/09/17 Casey Berry II, DO 08/09/17 Shruti Vergara RN RN Registered Nurse 08/27/20 documented as of this encounter Additional Source Comments PLEASE NOTE: Replies to this message will not be received.[facility] and [facility]
--- OUTSIDE RECORDS SUMMARY | 2024-04-21 13:17 | XMS_ITS | Encounter Summary ---
Author Organization [facility] Address [address] [place] [address] Care Team Providers Care Ancillary Specialist Name Role Phone Jamal CARLISLE DO, Robert William Primary Care Provide r Unavailable Desiree Patrick MD Unavailable Farrah Nicole APRN,OUTPATIENT CODING SPECIALIST Unavailable Bry Echevarria MD Unavailable [phone] Jamal CARLISLE DO, Robert William Unavailable Unav Stephani Diaz MD Primary Care Provider Shruti Vergara RN Unavailable Unavailable Bianka Loera CNP Primary Care Provider Desiree Patrick MD Primary Care P rovider Encounter Details Date Type Department Care Team (Late st Contact Info) Description 07/01/2017 Historical Conversion [facility] Family Medicine [address] [place] [address] Social History Tobacco Use Types Packs/Day Years [...] of this encounter Procedure Notes * [facility] DONTAELUB[facility] - 06/14/2018 12:00 AM [...] by:Tiffani Carrero RN Jun 14 2018 7:43PM ASSISTANT PROFESSOR OF NURSING * [facility]HEL[facility]OVID[facility] - 05/17/2018 12:00 AM CSTAssociated Order(s): ANTICOAGULATION Anticoagulation Clinic [facility] Name: CRISTIAN BLEDSOE : 1945 DOS: [...] by:Tiffani Carrero RN May 17 2018 11:41AM ASSISTANT PROFESSOR OF NURSING * [facility] 04/26/2018 12:00 AM CDTAssociated Order(s): ANTICOAGULATION Anticoagulation Clinic [facility] Name: CRISTIAN BLEDSOE : 1945 DOS: [...] by:Tiffani Carrero RN Apr 26 2018 4:12PM ASSISTANT PROFESSOR OF NURSING * [facility] 03/22/2018 12:00 AM CDTAssociated Order(s): ANTICOAGULATION [facility] Name: CRISTIAN BLEDSOE : 1945 DOS: [...] by:Tiffani Carrero RN Mar 22 2018 3:06PM ASSISTANT PROFESSOR OF NURSING * [facility] DAYANNABRANDO - 02/23/2018 12:00 AM CDTAssociated Order(s): ANTICOAGULATION Anticoagulation [facility] Name: CRISTIAN BLEDSOE : 1945 DOS: 02/23/2018 [...] by:Tiffani Carrero RN Feb 23 2018 10:29AM ASSISTANT PROFESSOR OF NURSING * [facility] DONTAELUB[facility] - 02/09/2018 12:00 AM CDTAssociated Order(s): ANTICOAGULATION Anticoagulation [facility] Name: CRISTIAN BLEDSOE : 1945 DOS: 02/09/2018 Cristian is a patient of Dr. Berry. He is here today for anticoagulation assessment and INR check for adiagnosis of atrial fibrillation. Patient states that he has been feeling well. He denies any medication changes since his last INR check. Patient reports that he recently took a trip to [place] and forgot to take his Coumadin during the weekend. INR tested today is 1.8 with the recommended range of 2.0 to 3.0. Patient will continue Coumadin at 7.5 mg on Wednesdays and 5 mg all other days withan INR recheck in two weeks. Patient verbalizes understanding. Electronically signed by:Tiffani Carrero RN Feb 09 2018 4:06PM ASSISTANT PROFESSOR OF NURSING * [facility] - 07/01/2017 12:00 AM CSTAssociated Order(s): ANTICOAGULATION Name: CRISTIAN BLEDSOE : 1945 DOS: 07/01/2017 Cristian is a patient of Dr. Berry. He is here today for anticoagulation assessment and INR check for adiagnosis of atrial fibrillation. Patient was seen in clinic by Dr. Echevarria today post cardioversion. Patient had a cardioversion on 06/24 at [facility] and he reports it went well. [...] by:Theresa Crowder RN Jul 01 2017 5:02PM ASSISTANT PROFESSOR OF NURSING documented in this encounter Plan of Treatment Not on file documented as of this encounter Procedures Procedure Name Priority Date/Time Associated Diagnosis Comments ANTICOAGULATION 06/14/2018 ANTICOAGULATION 05/17/2018 ANTICOAGULATION 04/26/2018 ANTICOAGULATION 03/22/2018 ANTICOAGULATION 02/23/2018 ANTICOAGULATION 02/09/2018 ANTICOAGULATION 07/01/2017 documented in this encounter Results * ANTICOAGULATION (06/14/2018) Narrative Procedure Note [facility] MICHELLE[facility]OVIBRANDO - 06/14/2018 12:00 AM CST [...] by:Tiffani Carrero RN Jun 14 2018 7:43PM ASSISTANT PROFESSOR OF NURSING [facility] OTHER * ANTICOAGULATION (05/17/2018) Narrative Procedure Note [facility] - 05/17/2018 12:00 AM CST Anticoagulation [facility] Name: CRISTIAN BLEDSOE : 1945 DOS: 05/17/2018 [...] by:Tiffani Carrero RN May 17 2018 11:41AM ASSISTANT PROFESSOR OF NURSING [facility] OTHER * ANTICOAGULATION (04/26/2018) Narrative Procedure Note [facility] - 04/26/2018 12:00 AM CDT Anticoagulation [facility] Name: CRISTIAN BLEDSOE : 1945 DOS: 04/26/2018 [...] by:Tiffani Carrero RN Apr 26 2018 4:12PM ASSISTANT PROFESSOR OF NURSING [facility] OTHER * ANTICOAGULATION (03/22/2018) Narrative Procedure Note [facility] - 03/22/2018 12:00 AM CDT Anticoagulation [facility] Name: CRISTIAN BLEDSOE : 1945 DOS: 03/22/2018 [...] by:Tiffani Carrero RN Mar 22 2018 3:06PM ASSISTANT PROFESSOR OF NURSING [facility] OTHER * ANTICOAGULATION (02/23/2018) Narrative Procedure Note [facility] - 02/23/2018 12:00 AM CDT Anticoagulation [facility] Name: CRISTIAN BLEDSOE : 1945 DOS: 02/23/2018 [...] by:Tiffani Carrero RN Feb 23 2018 10:29AM ASSISTANT PROFESSOR OF NURSING [facility] OTHER * ANTICOAGULATION (02/09/2018) Narrative Procedure Note [facility] - 02/09/2018 12:00 AM CDT Anticoagulation Clinic [facility] Name: CRISTIAN BLEDSOE : 1945 DOS: [...] by:Tiffani Carrero RN Feb 09 2018 4:06PM ASSISTANT PROFESSOR OF NURSING [facility] OTHER * ANTICOAGULATION (07/01/2017) Narrative Procedure Note [facility] - 07/01/2017 12:00 AM CST Name: CRISTIAN BLEDSOE : 1945 DOS: 07/01/2017 Cristian is a patient of Dr. Berry. He is here today for anticoagulationassessment and INR check for a diagnosis of atrial fibrillation. Patientwas seen in clinic by Dr. Echevarria today post cardioversion. Patient had acardioversion on 06/24 at [facility] and he reports it went well. [...] by:Theresa Crowder RN Jul 01 2017 5:02PM ASSISTANT PROFESSOR OF NURSING Genericprovider [facility] OTHER documented in this encounter Visit Diagnoses Not on filedocumented in this encounter Care Teams Ancillary Specialist Relationship Specialty Start Date End Date Casey Berry II, DO PCP - General 11/22/06 08/17/19 Stephani Aleman MD PCP - General Family Medicine 08/18/19 09/16/20 Bianka Loera SENSITIZER [address] [facility] [address] [place] [address] PCP - General Nurse Practitioner Family 09/17/2001/10 Desiree Patrick MD [address] [place] [address] PCP - General Electrophysiology 02/23/22 03/09/22 [place] [address] [place] [address] 08/09/17 Farrah Nicole APRN,ALEX [address] [place] [address] 08/09/17 Bry Echevarria MD [address] [place] [address] 08/09/17 Casey Berry II, DO 08/09/17 Shruti Vergara RN RN Registered Nurse 08/27/20 documented as of this encounter Additional Source Comments PLEASE NOTE: Replies to this message will not be received.[facility]
--- OUTSIDE RECORDS SUMMARY | 2024-04-21 13:17 | XMS_ITS | Encounter Summary ---
Author Organization [facility] Address [address] [place] [address] Care Team Providers Care Enterprise Software Engineer Name Role Phone Jamal CARLISLE DO, Robert William Primary Care Provide r Unavailable Desiree Patrick MD Unavailable Farrah Nciole APRN,LIFE CONSULTANT Unavailable [phone] Bry Echevarria MD Unavailable Jamal CARLISLE DO, Robert William Unavailable Unav Stephani Diaz MD Primary Care Provider Shruti Vergara RN Unavailable Unavailable Bainka Loera CNP Primary Care Provider Desiree Patrick MD Primary Care P rovider Encounter Details Date Type Department Care Team (Late st Contact Info) Description 07/22/2018 Historical Conversion [facility] Family Medicine [address] [place] [address] Moon Maloney MD Social History Tobacco Use [...] Comments Blood Pressure 120/58 07/22/2018 12:00 AM BROKE HANDLER Pulse - - Temperature - - Respiratory Rate - - Oxygen Saturation - - Inhaled Oxygen Concentration - - Weight 93.8 kg (206 lb 12.7 oz) 019 12:00 AM BROKE HANDLER Height - - Body Mass Index 27.28 06/20/2018 8:23 AM BROKE HANDLER documented in this encounter Functional Status Functional [...] on filedocumented in this encounter Care Teams Enterprise Software Engineer Relationship Specialty Start Date End Date Casey Berry II, DO PCP - General 11/22/06 08/17/19 Stephani Aleman MD PCP - General Family Medicine 08/18/19 09/16/20 Bianka Loera CNP [address] [facility] 2 [place] [phone] PCP - General Nurse Practitioner Family 09/17/2001/10 [place] [address] [place] [address] PCP - General Electrophysiology 02/23/22 03/09/22 Desiree Patrick MD [address] [place] [address] 08/09/17 Farrah Nicole APRN,LIFE CONSULTANT [address] [place] [address] 08/09/17 Bry Echevarria MD [address] [place] [address] 08/09/17 Casey Berry II, DO 08/09/17 Shruti Vergara RN RN Registered Nurse 08/27/20 documented as of this encounter Additional Source Comments PLEASE NOTE: Replies to this message will not be received.[facility] and [facility]
--- OUTSIDE RECORDS SUMMARY | 2024-04-21 13:17 | XMS_ITS | Encounter Summary ---
Author Organization [employer] Address [address] [place] [address] Care Team Providers Care Billet Heater Operator Name Role Phone Jamal CARLISLE DO, Robert William Primary Care Provide r Unavailable Desiree Patrick MD Unavailable Farrah Nicole APRN,TANK CAR INSPECTOR Unavailable [phone] Bry Echevarria MD Unavailable Jamal CARLISLE DO, Robert William Unavailable Unav Stephani Diaz MD Primary Care Provider Shruti Vergara RN Unavailable Unavailable Bianka Loera CNP Primary Care Provider [phone] Desiree Patrick MD Primary Care P rovider Encounter Details Date Type Department Care Team (Late st Contact Info) Description 09/07/2017 Historical Conversion [facility] Family Medicine [address] [place] [address] Casey Berry II, DO Social History Tobacco [...] Bilateral leg pain History of Present Illness Syunjxy-spj-uccx-old male who states that he was shoveling [...] TAKE 1 CAPSULE EVERY 12 HOURS; Last Rx:[id number] Ordered 2. Lisinopril 10 MG Oral Tablet; TAKE ONE TABLET DAILY; Therapy: 18Oct2017 to Recorded 3. Metoclopramide HCl - 5 MG Oral Tablet; TAKE 1 TABLET BY MOUTH THREE TIMES DAILY WITH MEALS NEEDED; Therapy: 10Sep2014 to (Evaluate:29Oct2017) Requested for: 26Cuq2955; Last Rx:[id number] Ordered 4. Polyethylene Glycol 3350 Oral Powder; take 17 grams in 8 ounces of fluid once daily as needed for constipation; Therapy: 08Mqe7985 to (Evaluate:27May2018); Last Rx:[id number] Ordered 5. Triamcinolone Acetonide 0.1 % External Lotion; APPLY 2-3 TIMES DAILY TO AFFECTED AREA(S); Therapy: 62Skn9835 to (Last Rx:[id number]) Requested for: [id number] Ordered 6. Warfarin Sodium 5 MG Oral Tablet; Take as directed by ACC; Therapy: 09Ejc7929 to (Evaluate:10Sep2018) Requested for: 15Sep2017 Recorded Allergies [...] Casey Berry DO; Oct 25 2017 10:02AM ASPHALT TILE FLOOR LAYER documented in this encounter H&P Notes * [...] healthy by no longer smoking.; Status:Complete; Done: [id number] Reason For Visit Routine history and physical. [...] DAILY; Therapy: 14Apr2017 to (Evaluate:27May2018) Requested for: 00Uod2615; Last Rx:[id number] Ordered 3. Dofetilide 250 MCG Oral Capsule; TAKE 1 CAPSULE EVERY 12 HOURS; Last Rx:[id number] Ordered 4. Metoclopramide HCl - 5 MG Oral Tablet; TAKE 1 TABLET BY MOUTH THREE TIMES DAILY WITH MEALS NEEDED; Therapy: 10Sep2014 to (Evaluate:29Oct2017) Requested for: 86Gkv7854; Last Rx:[id number] Ordered 5. Metoprolol Tartrate 50 MG Oral Tablet; TAKE 1/2 TABLET TWICE DAILY; Therapy: (Recorded:42Xnw2228) to Recorded 6. Polyethylene Glycol 3350 Oral Powder; take 17 grams in 8 ounces of fluid once daily as needed for constipation; Therapy: 01Jul2017 to (Evaluate:27May2018); Last Rx:[id number] Ordered 7. Warfarin Sodium 5 MG Oral Tablet; Take as directed by ACC; Therapy: 68Jhl9402 to (Evaluate:28May2018) Requested for: 02Jun2017 Recorded Allergies 1. Penicillins 2. Sulfa Drugs PENICILLIN AND SULFA. Immunizations Prevnar in 2016. Pneumovax in 2009. Tetanus in 2013. Shingles in 2009. Vitals Recorded: 45Znn9170 08:20AM Systolic 144 Diastolic 85 Heart Rate [...] Casey Berry DO; Sep 20 2017 7:51AM ASPHALT TILE FLOOR LAYER documented in this encounter Plan of Treatment Not on file documented as of this encounter Visit Diagnoses Not on filedocumented in this encounter Care Teams Billet Heater Operator Relationship Specialty Start Date End Date Casey Berry II, DO PCP - General 11/22/06 08/17/19 Stephani Aleman MD PCP - General Family Medicine 08/18/19 09/16/20 Bianka Loera CNP [address] [place] [address] 2 [place] [phone] PCP - General Nurse Practitioner Family 09/17/2001/10 [place] [address] [place] [phone] PCP - General Electrophysiology 02/23/22 03/09/22 Desiree Patrick MD [address] [place] [address] 08/09/17 Farrah Nicole APRN,TANK CAR INSPECTOR [address] [place] [address] 08/09/17 Bry Echevarria MD [address] [place] [address] 08/09/17 Casey Berry II, DO 08/09/17 Shruti Vergara RN RN Registered Nurse 08/27/20 documented as of this encounter Additional Source Comments PLEASE NOTE: Replies to this message will not be received.[facility]
--- OUTSIDE RECORDS SUMMARY | 2024-04-21 13:17 | XMS_ITS | Encounter Summary ---
Author Organization [employer] Address [address] [place] [address] Care Team Providers Care Chancery Clerk Name Role Phone Jamal CARLISLE DO, Robert William Primary Care Provide r Unavailable Desiree Patrick MD Unavailable Farrah Nicole APRN,PHOTOGRAPHER APPRENTICE Unavailable Byr Echevarria MD Unavailable Jamal CARLISLE DO, Robert William Unavailable Unav Stephani Diaz MD Primary Care Provider Shruti Vergara RN Unavailable Unavailable Bianka Loera CNP Primary Care Provider Desiree Patrick MD Primary Care P rovider Encounter Details Date Type Department Care Team (Late st Contact Info) Description 10/18/2017 Historical Conversion [facility] Family Medicine [address] [place] [address] Casey Berry II, DO Social History Tobacco [...] Body Mass Index 27.09 09/07/2017 12:00 AM CHANCERY CLERK documented in this encounter Functional Status [...] on filedocumented in this encounter Care Teams Chancery Clerk Relationship Specialty Start Date End Date Casey Berry II, DO PCP - General 11/22/06 08/17/19 Stephani Aleman MD PCP - General Family Medicine 08/18/19 09/16/20 Bianka Loera CNP [address] [facility] 2 [place] [phone] PCP - General Nurse Practitioner Family 09/17/2001/10 [place] [address] [place] [address] PCP - General Electrophysiology 02/23/22 03/09/22 Desiree Patrick MD [address] [place] [address] 08/09/17 Farrah Nicole APRN,PHOTOGRAPHER APPRENTICE [address] [place] [address] 08/09/17 Bry Echevarria MD [address] [place] [address] 08/09/17 Casey Berry II, DO 08/09/17 Shruti Vergara RN RN Registered Nurse 08/27/20 documented as of this encounter Additional Source Comments PLEASE NOTE: Replies to this message will not be received.[facility] and [facility]
--- OUTSIDE RECORDS SUMMARY | 2024-04-21 13:17 | XMS_ITS | Encounter Summary ---
Author Organization [employer] Address [address] [place] [address] Care Team Providers Care Cinder Worker Name Role Phone Jamal CARLISLE DO, Robert William Primary Care Provide r Unavailable Desiree Patrick MD Unavailable Farrah Nicole APRN,PYROTECHNICS PRESS TENDER Unavailable Bry Echevarria MD Unavailable Jamal CARLISLE DO, Robert William Unavailable Unav Stephani Diaz MD Primary Care Provider [phone] Shruti Vergara RN Unavailable Unavailable Bianka Loera CNP Primary Care Provider [phone] Desiree Patrick MD Primary Care P rovider Encounter Details Date Type Department Care Team (Late st Contact Info) Description 09/08/2018 Historical Conversion [facility] Family Medicine [address] [place] [address] Casey Berry II, DO Social History Tobacco [...] Comments Blood Pressure 122/74 09/08/2018 12:00 AM FLOWER ARRANGER Pulse - - Temperature - - Respiratory Rate - - Oxygen Saturation - - Inhaled Oxygen Concentration - - Weight 92.8 kg (204 lb 9.7 oz) 09/08/2018 12:00 AM FLOWER ARRANGER Height 184 cm (6' 0.44) 09/08/2018 12:00 AM FLOWER ARRANGER Body Mass Index 27.41 09/08/2018 12:00 AM FLOWER ARRANGER documented in this encounter Functional Status Functional [...] on filedocumented in this encounter Care Teams Cinder Worker Relationship Specialty Start Date End Date Casey Berry II, DO PCP - General 11/22/06 08/17/19 Stephani Aleman MD PCP - General Family Medicine 08/18/19 09/16/20 Bianka Loera CNP [address] [facility] [address] [place] [address] PCP - General Nurse Practitioner Family 09/17/2001/10 [place] [address] [place] [address] PCP - General Electrophysiology 02/23/22 03/09/22 Desiree Patrick MD [address] [place] [address] 08/09/17 Farrah Nicole APRN,PYROTECHNICS PRESS TENDER [address] [place] [address] 08/09/17 Bry Echevarria MD [address] [place] [address] [place] [address] 08/09/17 Casey Berry II, DO 08/09/17 Srhuti Vergara RN RN Registered Nurse 08/27/20 documented as of this encounter Additional Source Comments PLEASE NOTE: Replies to this message will not be received.[facility] and [facility]
--- OUTSIDE RECORDS SUMMARY | 2024-04-21 13:17 | XMS_ITS | Encounter Summary ---
Author Organization [facility] Address [address] [place] [address] Care Team Providers Care Special Order Jeweler Name Role Phone Jamal CARLISLE DO, Robert William Primary Care Provide r Unavailable Desiree Patrick MD Unavailable Farrah Nicole APRN,ANALYTICAL CONSULTANT Unavailable Bry Echevarria MD Unavailable Jamal CARLISLE DO, Robert William Unavailable Unav Stephani Diaz MD Primary Care Provider Shruti Vergara RN Unavailable Unavailable Bianka Loera CNP Primary Care Provider Desiree Patrick MD Primary Care P rovider Encounter Details Date Type Department Care Team (Late st Contact Info) Description 09/08/2018 Historical Conversion [facility] Family Medicine [address] [place] [address] Casey Berry II, DO Social History Tobacco [...] DAILY CBC; Status:Resulted - Requires Verification; Done: 87Vsh3019 09:12AM Comprehensive Metabolic Panel; Status:Resulted - Requires Verification; Done: 28Qcp6741 09:12AM Lipid Panel; Status:Resulted - Requires Verification; Done: 08Sep2018 09:12AM Vitamin D Total [facility]; Status:Resulted - Requires Verification; Done: 08Sep2018 09:12AM Ataxia Drawing Fee; Status:Complete; Done: 08Sep2018 Balance Center Consult Consult Only Evaluation and Treatment Status: Hold For - Required information Requested for: [id number] Phone Number to Contact Patient: : See chart to Provider, Practice or Agency: : [facility] Folate; Status:Resulted - Requires Verification; [...] 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 HEALTH CARE MAINTENANCE: Colonoscopy in 2009, due in 2019. Current Meds 1. Dofetilide 250 MCG Oral Capsule; TAKE 1 CAPSULE EVERY 12 HOURS; Last Rx:[id number] Ordered 2. Jantoven 5 MG Oral Tablet; TAKE 1 1/2 TABLET BY MOUTH ON WEDNESDAYS, AND 1 TABLET BY MOUTH ALL OTHER DAYS OF THE WEEK DIRECTED; Therapy: 13Apr2018 to (Evaluate:28Sep2018) Requested for: 15Fyp5417; Last Rx:[id number] Ordered 3. Lisinopril 10 MG Oral Tablet; TAKE ONE TABLET DAILY; Therapy: 18Oct2017 to Recorded 4. Metoclopramide HCl - 5 MG Oral Tablet; TAKE 1 TABLET BY MOUTH THREE TIMES DAILY WITH MEALS NEEDED; Therapy: 10Sep2014 to (Evaluate:33Azp9734) Requested for: 80Gdc6240; Last Rx:[id number] Ordered 5. Oxybutynin Chloride ER 10 MG Oral Tablet Extended Release 24 Hour; TAKE 1 TABLET DAILY; Therapy: 85Wwy0755 to (Evaluate:95Ruz3177) Requested for: 28Iye4282; Last Rx:[id number] Ordered 6. Polyethylene Glycol 3350 Oral Powder; take 17 grams in 8 ounces of fluid once daily as needed for constipation; Therapy: 66Smy8974 to (Evaluate:27May2018); Last Rx:[id number] Ordered 7. Sildenafil Citrate 100 MG Oral Tablet; Take 1/2-1 tab 1 hour before sexual activity; Therapy: 94Utw6697 to (Last Rx:[id number]) Requested for: 94Lsa8873 Ordered 8. Triamcinolone Acetonide 0.1 % External Lotion; APPLY 2-3 TIMES DAILY TO AFFECTED AREA(S); Therapy: 88Jqh0792 to (Last Rx:[id number]) Requested for: 23Rwm2047 Ordered Allergies 1. Penicillins 2. Sulfa Drugs [...] Prostate firm, no masses, nontender. Results/Data CBC 58Bke3188 09:12AM Jamal Casey FASTING Test Name Result [...] 0.9 L 1.0-4.7 Vitamin D Total [facility] [id number] 09:12 Casey Berry Test Name Result Flag Reference Vitamin D Total - [facility] 20.9 ng/ml L 30-100 Deficiency <10ng/mL Insufficiency 10-29 ng/mL Sufficiency 30-100 ng/mL Possible Toxicity >100 ng/mL TSH [id number] 09:12 Casey Berry FASTING Test Name Result Flag Reference TSH 1.670 uIU/ml 0.30-4.70 Vitamin B12 08Sep2018 09:12AM Casey Berry Test Name Result Flag Reference Vitamin B12 382 pg/ml 200-1000 Folate [id number] 09:12AM Casey Berry Test Name Result Flag Reference Folate >20.0 ng/ml H 6.6-19.9 Signatures Casey Berry II, D.Veena/jaj-28 REVISED NOTE 09/12/2018/naomie Electronically signed by : Casey Berry DO; Sep 09 2018 11:14AM TERMITE EXTERMINATOR HELPER Electronically signed by : Casey Berry DO; Sep 12 2018 9:09AM TERMITE EXTERMINATOR HELPER documented in this encounter Plan of Treatment Not on file documented as of this encounter Visit Diagnoses Not on filedocumented in this encounter Care Teams Special Order Jeweler Relationship Specialty Start Date End Date Casey Berry II, DO PCP - General 11/22/06 08/17/19 Stephani Aleman MD PCP - General Family Medicine 08/18/19 09/16/20 Bianka Loera PRISON GUARD [address] [place] [phone] PCP - General Nurse Practitioner Family 09/17/20 712/31 Desiree Patrick MD [address] [place] [address] PCP - General Electrophysiology 02/23/22 03/09/22 Desiree Patrick MD [address] [place] [address] 08/09/17 Farrah Nicole APRN,ANALYTICAL CONSULTANT [address] [place] [address] 08/09/17 Bry Echevarria MD [facility] [place] [address] 08/09/17 Casey Berry II, DO 08/09/17 Shruti Vergara RN RN Registered Nurse 08/27/20 documented as of this encounter Additional Source Comments PLEASE NOTE: Replies to this message will not be received.[facility] and [facility]
--- OUTSIDE RECORDS SUMMARY | 2024-04-21 13:17 | XMS_ITS | Encounter Summary ---
Author Organization [employer] Address [address] [place] [address] Care Team Providers Care Campaign Coordinator Name Role Phone Jamal CARLISLE DO, Robert William Primary Care Provide r Unavailable Desiree Patrick MD Unavailable Farrah Nicole APRN,LOCK MASTER Unavailable Bry Echevarria MD Unavailable Jamal CARLISLE DO, Robert William Unavailable Unav Stephani Diaz MD Primary Care Provider [phone] Shruti Vergara RN Unavailable Unavailable Bianka Loera CNP Primary Care Provider Desiree Patrick MD Primary Care P rovider Encounter Details Date Type Department Care Team (Late st Contact Info) Description 06/23/2018 Historical Conversion [facility] [address] [place] [id number] Moon Maloney MD Social History Tobacco Use [...] Comments Blood Pressure 120/62 06/23/2018 12:00 AM REALTY LOAN SPECIALIST Pulse - - Temperature - - Respiratory Rate - - Oxygen Saturation - - Inhaled Oxygen Concentration - - Weight 93.5 kg (206 lb 2.1 oz) 06/23/2018 12:00 AM REALTY LOAN SPECIALIST Height - - Body Mass Index 27.2 06/20/2018 8:23 AM REALTY LOAN SPECIALIST documented in this encounter Functional Status Functional [...] on filedocumented in this encounter Care Teams Campaign Coordinator Relationship Specialty Start Date End Date Casey Berry II, DO PCP - General 11/22/06 08/17/19 Stephani Aleman MD PCP - General Family Medicine 08/18/19 09/16/20 Bianka Loera CNP [address] [facility] 2 [place] [phone] PCP - General Nurse Practitioner Family 09/17/2001/10 [place] [address] [place] [phone] PCP - General Electrophysiology 02/23/22 03/09/22 Desiree Patrick MD [address] [place] [address] 08/09/17 Farrah Nicole APRN,LOCK MASTER [address] [place] [address] 08/09/17 Bry Echevarria MD [address] [place] [address] 08/09/17 Casey Berry II, DO 08/09/17 Shruti Vergara RN RN Registered Nurse 08/27/20 documented as of this encounter Additional Source Comments PLEASE NOTE: Replies to this message will not be received.[facility] and [facility]
--- OUTSIDE RECORDS SUMMARY | 2024-04-21 13:17 | XMS_ITS | Encounter Summary ---
Author Organization [employer] Address [address] [place] [address] Care Team Providers Care Circulation Librarian Name Role Phone Jamal CARLISLE DO, Robert William Primary Care Provide r Unavailable Desiree Patrick MD Unavailable Farrah Nicole APRN,TELEVISION NEWS PHOTOGRAPHER Unavailable Bry Echevarria MD Unavailable [phone] Jamal CARLISLE DO, Robert William Unavailable Unav Stephani Diaz MD Primary Care Provider Shruti Vergara RN Unavailable Unavailable Bianka Loera CNP Primary Care Provider Desiree Patrick MD Primary Care P rovider Encounter Details Date Type Department Care Team (Late st Contact Info) Description 06/13/2018 Historical Conversion [facility] [address] [facility] [place] [address] Bry Echevarria MD [address] [place] [address] Social History Tobacco Use Types [...] Comments Blood Pressure 120/78 06/13/2018 12:00 AM HANDS PARTER Pulse - - Temperature - - Respiratory Rate - - Oxygen Saturation - - Inhaled Oxygen Concentration - - Weight 93.8 kg (206 lb 12.7 oz) 018 12:00 AM HANDS PARTER Height - - Body Mass Index 27.29 05/18/2018 8:54 AM HANDS PARTER documented in this encounter Functional Status Functional [...] on filedocumented in this encounter Care Teams Circulation Librarian Relationship Specialty Start Date End Date Casey Berry II, DO PCP - General 11/22/06 08/17/19 Stephani Aleman MD PCP - General Family Medicine 08/18/19 09/16/20 Bianka Loera CNP [address] [place] [address] 2 [place] [address] PCP - General Nurse Practitioner Family 09/17/2001/10 Desiree Patrick MD [address] [place] [address] PCP - General Electrophysiology 02/23/22 03/09/22 Desiree Patrick MD [address] [place] [address] 08/09/17 Farrah Nicole APRN,TELEVISION NEWS PHOTOGRAPHER [address] [place] [address] 08/09/17 Bry Echevarria MD [address] [place] [address] 08/09/17 Casey Berry II, DO 08/09/17 Shruti Vergara RN RN Registered Nurse 08/27/20 documented as of this encounter Additional Source Comments PLEASE NOTE: Replies to this message will not be received.[facility] and [facility]
--- OUTSIDE RECORDS SUMMARY | 2024-04-21 13:17 | XMS_ITS ---
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 Past Plans No past plan information found. Radiation Treatments * No radiation treatments are documented for this patient in [facility]. Treatments may have been administered in another [...]
--- OUTSIDE RECORDS SUMMARY | 2024-04-21 13:17 | XMS_ITS | Encounter Summary ---
Author Organization [employer] Address [address] [place] [address] Care Team Providers Care Riveter Pneumatic Name Role Phone Jamal CARILSLE DO, Robert William Primary Care Provide r Unavailable Desiree Patrick MD Unavailable Farrah Nicole APRN,METAL FABRICATOR WELDER Unavailable Bry Echevarria MD Unavailable Jamal CARLISLE DO, Robert William Unavailable Unav Stephani Diaz MD Primary Care Provider [phone] Shruti Vergara RN Unavailable Unavailable Bianka Loera CNP Primary Care Provider [phone] Desiree Patrick MD Primary Care P rovider Encounter Details Date Type Department Care Team (Late st Contact Info) Description 06/13/2018 Historical Conversion [facility] Family Medicine [address] [place] [address] Social History Tobacco Use Types Packs/Day Years [...] of this encounter Progress Notes * [facility] - 11/02/2018 12:00 AM CDT Balance [...] week. Joan Everett PTA/Kassy Barone PT, [place] #[id number] Electronically signed by:Joan Everett PTA Nov 02 2018 2:00PM FOOD CHEMIST Family Consumer Science Fcs Teacher/Recorder Electronically signed by:Trish Barone PT Nov 07 2018 4:43PM FOOD CHEMIST * [facility] - 10/26/2018 12:00 AM [...] by:Joan Everett PTA Oct 28 2018 7:51AM FOOD CHEMIST Family Consumer Science Fcs Teacher/Recorder Electronically signed by:Trish Barone PT Oct 31 2018 7:01PM FOOD CHEMIST * [facility] - 09/19/2018 12:00 AM CDT PHYSICAL THERAPY STUDENT NOTE BALANCE EVALUATION CRISTIAN BLEDSOE : 1945 HX: [id number] DOS: 09/19/2018 REFERRING PROVIDER: Casey Berry D.O. 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 He is currently [...] PATIENT RECEIVED: Patient received 30 minutes of fjpe-yk-efta evaluation with three or more comorbidities and three or more elements addressed. Clinical presentation is evolving and clinical complexity is moderate. Patient also received canalith repositioning maneuvers on this date. Lennox LEAHY/Trish Barone, PT #[id number] / lb-12 cc: Casey Berry D.O., [facility] Electronically signed by:Lennox Malagon Sep 20 2018 7:56PM FOOD CHEMIST Co-author Electronically signed by:Lennox Malagon Sep 27 2018 8:39AM FOOD CHEMIST Co-author Electronically signed by:Trish Barone PT Oct 02 2018 5:18PM FOOD CHEMIST documented in this encounter Procedure Notes * [facility] - 10/26/2018 12:00 AM CDTAssociated Order(s): [...] by:Tiffani Carrero RN Oct 26 2018 4:16PM FOOD CHEMIST * [facility] - 10/11/2018 12:00 AM CDTAssociated Order(s): ANTICOAGULATION [facility] Name: CRISTIAN BLEDSOE : 1945 DOS: [...] by:Tiffani Carrero RN Oct 11 2018 3:39PM FOOD CHEMIST * [facility] - 09/07/2018 12:00 AM CSTAssociated Order(s): ANTICOAGULATION [facility] Name: CRISTIAN BLEDSOE : 1945 DOS: [...] by:Tiffani Carrero RN Sep 07 2018 3:31PM FOOD CHEMIST * [facility] - 08/22/2018 12:00 AM CSTAssociated Order(s): ANTICOAGULATION Anticoagulation [facility] Name: CRISTIAN BLEDSOE : [...] by:Tiffani Carrero RN Aug 22 2018 2:48PM FOOD CHEMIST * [facility]PR[facility] - 07/13/2018 12:00 AM CSTAssociated Order(s): ANTICOAGULATION [facility] Name: CRISTIAN BLEDSOE : 1945 DOS: [...] by:Tiffani Carrero RN Jul 13 2018 2:41PM FOOD CHEMIST * [facility] - 06/13/2018 12:00 AM CSTAssociated [...] Deborah Mandel RN; Jun 13 2018 12:37PM FOOD CHEMIST documented in this encounter Plan of Treatment Not on file documented as of this encounter Procedures Procedure Name Priority Date/Time Associated Diagnosis Comments ANTICOAGULATION 10/26/2018 ANTICOAGULATION 10/11/2018 ANTICOAGULATION 09/07/2018 ANTICOAGULATION 08/22/2018 ANTICOAGULATION 07/13/2018 ANTICOAGULATION 06/13/2018 documented in this encounter Results * ANTICOAGULATION (10/26/2018) Narrative Procedure Note [facility] - 10/26/2018 12:00 AM CDT Name: [...] by:Tiffani Carrero RN Oct 26 2018 4:16PM FOOD CHEMIST [facility] OTHER * ANTICOAGULATION (10/11/2018) Narrative Procedure Note [facility]PR[facility]INAD[facility] - 10/11/2018 12:00 AM CDT [facility] Name: CRISTIAN BLEDSOE : 1945 DOS: [...] by:Tiffani Carrero RN Oct 11 2018 3:39PM FOOD CHEMIST [facility] OTHER * ANTICOAGULATION (09/07/2018) Narrative Procedure Note [facility] - 09/07/2018 12:00 AM CST Anticoagulation [facility] Name: CRISTIAN BLEDSOE : [...] by:Tiffani Carrero RN Sep 07 2018 3:31PM FOOD CHEMIST [facility] OTHER * ANTICOAGULATION (08/22/2018) Narrative Procedure Note [facility] - 08/22/2018 12:00 AM CST Anticoagulation [facility] Name: CRISTIAN BLEDSOE : [...] by:Tiffani Carrero RN Aug 22 2018 2:48PM FOOD CHEMIST [facility] OTHER * ANTICOAGULATION (07/13/2018) Narrative Procedure Note [facility] - 07/13/2018 12:00 AM CST [facility] Name: CRISTIAN BLEDSOE : 1945 DOS: [...] anychanges. Patient verbalizes understanding. Electronically signed by:Tiffani Crarero RN Jul 13 2018 2:41PM FOOD CHEMIST [facility] OTHER * ANTICOAGULATION (06/13/2018) Narrative Procedure Note [facility] - 06/13/2018 12:00 AM CST [...] Deborah Mandel RN; Jun 13 2018 12:37PM FOOD CHEMIST Genericprovider [facility] OTHER documented in this encounter Visit Diagnoses Not on filedocumented in this encounter Care Teams Riveter Pneumatic Relationship Specialty Start Date End Date Casey Berry II, DO PCP - General 11/22/06 08/17/19 Stephani Aleman MD PCP - General Family Medicine 08/18/19 09/16/20 Bianka Loera CNP [address] [place] [phone] PCP - General Nurse Practitioner Family 09/17/2001/10 Desiree Patrick MD [address] [place] [address] PCP - General Electrophysiology 02/23/22 03/09/22 Desiree Patrick MD [address] [place] [address] 08/09/17 Farrah Nicole APRN,METAL FABRICATOR WELDER [address] [place] [address] 08/09/17 Bry Echevarria MD [facility] [address] [place] [place] [address] 08/09/17 Casey Berry II DO 08/09/17 Shruti Vergara, RN RN Registered Nurse 08/27/20 documented as of this encounter Additional Source Comments PLEASE NOTE: Replies to this message will not be received.[facility] and [facility]
--- OUTSIDE RECORDS SUMMARY | 2024-04-21 13:17 | XMS_ITS | Encounter Summary ---
Author Organization [facility] Address [address] [place] [address] Care Team Providers Care Yard Specialist Name Role Phone Jamal CARLISLE DO, Robert William Primary Care Provide r Unavailable Desiree Patrick MD Unavailable Farrah Nicole APRN,PLATE FORMER Unavailable Bry Echevarria MD Unavailable [phone] Jamal CARLISLE DO, Robert William Unavailable Unav Stephani Diaz MD Primary Care Provider Shruti Vergara RN Unavailable Unavailable Bianka Loera CNP Primary Care Provider Desiree Patrick MD Primary Care P rovider Encounter Details Date Type Department Care Team (Late st Contact Info) Description 07/01/2017 Historical Conversion [facility] [address] [facility] [place] [address] Bry Echevarria MD [address] [place] [address] Social History Tobacco Use Types [...] Comments Blood Pressure 136/70 07/01/2017 12:00 AM SOFTWARE CONSULTANT Pulse - - Temperature - - Respiratory Rate - - Oxygen Saturation - - Inhaled Oxygen Concentration - - Weight 97.6 kg (215 lb 2.7 oz) 07/01/2017 12:00 AM SOFTWARE CONSULTANT Height - - Body Mass Index 28.39 06/21/2017 2:27 PM SOFTWARE CONSULTANT documented in this encounter Functional Status [...] on filedocumented in this encounter Care Teams Yard Specialist Relationship Specialty Start Date End Date Casey Berry II, DO PCP - General 11/22/06 08/17/19 Stephani Aleman MD PCP - General Family Medicine 08/18/19 09/16/20 Bianka Loera CNP [address] [facility] 2 [place] [address] PCP - General Nurse Practitioner Family 09/17/2001/10 Desiree Patrick MD [address] [place] [address] PCP - General Electrophysiology 02/23/22 03/09/22 Desiree Patrick MD [address] [place] [address] 08/09/17 Farrah Nicole APRN,PLATE FORMER [address] [place] [address] 08/09/17 Bry Echevarria MD [address] [place] [address] [place] [address] 08/09/17 Casey Berry II, DO 08/09/17 Shruti Vergara RN RN Registered Nurse 08/27/20 documented as of this encounter Additional Source Comments PLEASE NOTE: Replies to this message will not be received.[facility] and [facility]
--- OUTSIDE RECORDS SUMMARY | 2024-04-21 13:17 | XMS_ITS | Encounter Summary ---
Author Organization [employer] Address [address] [place] [address] Care Team Providers Care Activity Therapy Specialist Name Role Phone Jamal CARLISLE DO, Robert William Primary Care Provide r Unavailable Desiree Patrick MD Unavailable Farrah Nicole APRN,SILVER DESIGNER Unavailable [phone] Bry Echevarria MD Unavailable [phone] Jamal CARLISLE DO, Robert William Unavailable Unav Stephani Diaz MD Primary Care Provider Shruti Vergara RN Unavailable Unavailable Bianka Loera CNP Primary Care Provider Desiree Patrick MD Primary Care P rovider Encounter Details Date Type Department Care Team (Late st Contact Info) Description 03/01/2018 Historical Conversion [facility] 101 [facility] [place] [address] Desiree Rubi PAC [address] [place] [address] Social History Tobacco Use Types [...] Body Mass Index 26.81 09/07/2017 12:00 AM REGISTRAR COLLEGE OR UNIVERSITY documented in this encounter Functional Status Functional [...] CDT UROLOGY [facility] BLEDSOE : 1945 HX: [id number] DOS: 03/01/2018 HISTORY OF PRESENT ILLNESS: This [...] think he normally sees Farrah Jacobo APRN, SILVER DESIGNER, at the [facility], so we will try to reach out [...] above. ASSESSMENT: 1. 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 He [...] meantime we will check with Cardiology in [place] about the option of Viagra or Cialis [...] P.A.-C./jmf- 24 cc: Jose Winslow M.D./Radiation Oncology [facility] cc: Casey Berry D.O./[facility] cc: Moon Maloney M.D./[facility] Electronically signed by:Desiree Rubi PA-C Mar 04 2018 1:27PM REGISTRAR COLLEGE OR UNIVERSITY documented in this encounter Plan of Treatment Not on file documented as of this encounter Visit Diagnoses Not on filedocumented in this encounter Care Teams Activity Therapy Specialist Relationship Specialty Start Date End Date Casey Berry II, DO PCP - General 11/22/06 08/17/19 Stephani Aleman MD PCP - General Family Medicine 08/18/19 09/16/20 Bianka Loera DIRECTOR OF MATH [address] [place] [address] PCP - General Nurse Practitioner Family 09/17/20 712/31 Desiree Patrick MD [address] [place] [address] PCP - General Electrophysiology 02/23/22 03/09/22 Desiree Patrick MD [address] [place] [address] 08/09/17 Farrah Nicole APRN,SILVER DESIGNER [address] [place] [address] 08/09/17 Bry Echevarria MD [facility] [place] [address] 08/09/17 Casey Berry II, DO 08/09/17 Shruti Vergara RN RN Registered Nurse 08/27/20 documented as of this encounter Additional Source Comments PLEASE NOTE: Replies to this message will not be received.[facility] and [facility]
--- OUTSIDE RECORDS SUMMARY | 2024-04-21 13:17 | XMS_ITS | Encounter Summary ---
Author Organization [employer] Address [address] [place] [address] Care Team Providers Care Dairy Equipment Mechanic Name Role Phone Jamal CARLISLE DO, Robert William Primary Care Provide r Unavailable Desiree Patrick MD Unavailable Farrah Nicole APRN,TAPER PRINTED CIRCUIT LAYOUT Unavailable Bry Echevarria MD Unavailable [phone] Jamal CARLISLE DO, Robert William Unavailable Unav Stephani Diaz MD Primary Care Provider Shruti Vergara RN Unavailable Unavailable Bianka Loera CNP Primary Care Provider [phone] Desiree Patrick MD Primary Care P rovider Encounter Details Date Type Department Care Team (Late st Contact Info) Description 06/23/2018 Historical Conversion [facility] Family Medicine [address] [place] [id number] Moon Maloney MD Social History Tobacco Use [...] MD - 07/22/2018 12:00 AM CST [facility] : 1945 HX: [id number] DOS: 07/22/2018 SUBJECTIVE: Cristian saw me on [...] Moon Maloney M.D./la-15 cc: Casey Berry II, D.O./[facility] Electronically signed by:Moon Maloney M.D. Jul 27 2018 9:15AM INTERDISCIPLINARY PROFESSOR * Moon Maloney MD - 06/23/2018 12:00 AM CST UROLOGY [facility]RISTIAN BLEDSOE : [id number] 06/23/2018 SUBJECTIVE: Cristian comes to see me [...] short-term ADT. He is not on any SAFETY TEACHER. His most recent PSA was 0.051 so [...] Moon K. Gemar, M.D./mdh-14 cc: Dr[facility] Kofi [facility] Electronically signed by:Moon Maloney M.D. Jun 24 2018 12:40PM INTERDISCIPLINARY PROFESSOR documented in this encounter Plan of Treatment Not on file documented as of this encounter Visit Diagnoses Not on filedocumented in this encounter Care Teams Dairy Equipment Mechanic Relationship Specialty Start Date End Date Casey Berry II, DO PCP - General 11/22/06 08/17/19 Stephani Aleman MD PCP - General Family Medicine 08/18/19 09/16/20 Bianka Loera CNP [address] [facility] [address] [place] [phone] PCP - General Nurse Practitioner Family 09/17/2001/10 Desiree Patrick MD [address] [place] [address] PCP - General Electrophysiology 02/23/22 03/09/22 Desiree Patrick MD [address] [place] [address] 08/09/17 Farrah Nicole APRN,TAPER PRINTED CIRCUIT LAYOUT [address] [place] [place] [address] 08/09/17 Bry Echevarria MD [facility] [place] [address] 08/09/17 Casey Berry II, DO 08/09/17 Shruti Vergara RN RN Registered Nurse 08/27/20 documented as of this encounter Additional Source Comments PLEASE NOTE: Replies to this message will not be received.Critical access hospital and [facility]
--- OUTSIDE RECORDS SUMMARY | 2024-04-21 13:17 | XMS_ITS | Encounter Summary ---
Author Organization [employer] Address [address] [place] [address] Care Team Providers Care Sterile Processing Manager Name Role Phone Jamal CARLISLE DO, Robert William Primary Care Provide r Unavailable Desiree Patrick MD Unavailable Farrah Nicole APRN,TOWER DRAGLINE OPERATOR Unavailable Bry Echevarria MD Unavailable [phone] Jamal CARLISLE DO, Robert William Unavailable Unav Stephani Diaz MD Primary Care Provider Shruti Vergara RN Unavailable Unavailable Bianka Loera CNP Primary Care Provider [phone] Desiree Patrick MD Primary Care P rovider Encounter Details Date Type Department Care Team (Late st Contact Info) Description 08/31/2017 Historical Conversion [facility] Family Medicine 101 [facility] [place] [address] Desiree Rubi PAC [address] [place] [address] Social History Tobacco Use Types [...] Comments Blood Pressure 112/60 08/31/2017 12:00 AM FLAKE MILLER WHEAT AND OATS Pulse - - Temperature - - Respiratory Rate - - Oxygen Saturation - - Inhaled Oxygen Concentration - - Weight 95.9 kg (211 lb 6.7 oz) 08/31/2017 12:00 AM FLAKE MILLER WHEAT AND OATS Height - - Body Mass Index 27.89 07/27/2017 2:42 PM FLAKE MILLER WHEAT AND OATS documented in this encounter Functional Status Functional [...] on filedocumented in this encounter Care Teams Sterile Processing Manager Relationship Specialty Start Date End Date Casey Berry II, DO PCP - General 11/22/06 08/17/19 Stephani Aleman MD PCP - General Family Medicine 08/18/19 09/16/20 Bianka Loera CNP [address] [place] [address] 2 [place] [address] PCP - General Nurse Practitioner Family 09/17/20 712/31 Desiree Patrick MD [address] [place] [address] PCP - General Electrophysiology 02/23/22 03/09/22 Desiree Patrick MD [address] [place] [address] 08/09/17 Farrah Nicole APRN,TOWER DRAGLINE OPERATOR [address] [facility] [place] [address] 08/09/17 Bry Echevarria MD [address] [place] [address] [place] [address] 08/09/17 Casey Berry II, DO 08/09/17 Shruti Vergara RN RN Registered Nurse 08/27/20 documented as of this encounter Additional Source Comments PLEASE NOTE: Replies to this message will not be received.[facility] and [facility]
--- OUTSIDE RECORDS SUMMARY | 2024-04-21 13:17 | XMS_ITS | Encounter Summary ---
Author Organization [employer] Address [address] [place] [address] Care Team Providers Care Director Physical Therapy Name Role Phone Jamal CARLISLE DO, Robert William Primary Care Provide r Unavailable Desiree Patrick MD Unavailable Farrah Nicole APRN,OFFICE MACHINERY OR EQUIPMENT INSTALLER Unavailable Bry Echevarria MD Unavailable Jamal CARLISLE DO, Robert William Unavailable Unav Stephani Diaz MD Primary Care Provider Shruti Vergara RN Unavailable Unavailable Bianka Loera CNP Primary Care Provider Desiree Patrick MD Primary Care P rovider Encounter Details Date Type Department Care Team (Late st Contact Info) Description 06/13/2018 Historical Conversion [facility] Family Medicine [address] [place] [address] Bry Echevarria MD [address] [place] [address] Social History Tobacco Use Types [...] AM CST CRISTIAN BLEDSOE : 1945 HX: [id number] DOS: 06/13/2018 SUBJECTIVE: Patient is a 72-year-old [...] Jose Winslow in Radiation Oncology at the [facility]. He has not recently had cystoscopy. He [...] Prostate cancer, status post treatment with radiation. Zahl to be under good control at this [...] Echevarria M.D./ekg-6 cc: Yury Berry DO/[facility] Radha cc: Elder Maloney MD/[facility] Radha cc: Mare Rubi PA-C/[facility] Radha cc: Jose Winslow MD/[facility] Electronically signed by:Bry Echevarria M.D. Jun 16 2018 2:16PM BILLBOARD MECHANIC documented in this encounter Plan of Treatment Not on file documented as of this encounter Visit Diagnoses Not on filedocumented in this encounter Care Teams Director Physical Therapy Relationship Specialty Start Date End Date Casey Berry II, DO PCP - General 11/22/06 08/17/19 Stephani Aleman MD PCP - General Family Medicine 08/18/19 09/16/20 Bianka Loera BOBBIN CLEANING MACHINE OPERATOR [address] [place] [phone] PCP - General Nurse Practitioner Family 09/17/2001/10 Desiree Patrick MD [address] [place] [address] PCP - General Electrophysiology 02/23/22 03/09/22 Desiree Patrick MD [address] [place] [address] 08/09/17 Farrah Nicole, COMPOSITE SCIENCE TEACHER,OFFICE MACHINERY OR EQUIPMENT INSTALLER [address] [place] [address] 08/09/17 Bry Echevarria MD [address] [place] [place] [address] 08/09/17 Casey Berry II, DO 08/09/17 Shruti Vergara RN RN Registered Nurse 08/27/20 documented as of this encounter Additional Source Comments PLEASE NOTE: Replies to this message will not be received.[facility] and [facility]
--- OUTSIDE RECORDS SUMMARY | 2024-04-21 13:17 | XMS_ITS | Encounter Summary ---
Author Organization [facility] Address [address] [place] [address] Care Team Providers Care Key Bed Installer Name Role Phone Desiree Patrick MD Unavailable Farrah Nicole APRN, CNS Unavailable Bry Echevarria MD Unavailable Jamal CARLISLE DO, Robert William Unavailable Unav ailable Shruti Vergara RN Unavailable Unavailable Desiree Patrick MD Primary Care P rovider Encounter Details Date Type Department Care Team (Late st Contact Info) Description 02/25/[address] [id number] Social History Tobacco Use Types Packs/Day Years [...] How often do you attend chur or baptist services? More than 4 times per year 04/04/2021 Do you belong to any clubs o r organizations such as baptism groups, unions, fraternal or athletic groups, or [...] and heating? Not hard at all 04/04/2021 [facility] of Occupat ional Health - Occupational Stress [...] Master's degree (e.g., MA, MS, Mirlande, MEd, [employer], [employer]OH[employer]) 08/19/2020 Sex and Gender Information Value [...] on filedocumented in this encounter Care Teams Key Bed Installer Relationship Specialty Start Date End Date Desiree Patrick MD [address] [place] [address] PCP - General Electrophysiology 02/23/22 03/09/22 Desiree Patrick MD [address] [place] [address] 08/09/17 Farrah Nicole APRN,MANAGER APPLIED [address] [place] [address] 08/09/17 Bry Echevarria MD [address] [place] [address] 08/09/17 Casey Berry II, DO 08/09/17 Shruti Vergara RN RN Registered Nurse 08/27/20 documented as of this encounter Additional Source Comments PLEASE NOTE: Replies to this message will not be received.[facility] and [facility]
--- OUTSIDE RECORDS SUMMARY | 2024-04-21 13:17 | XMS_ITS | Encounter Summary ---
Author Organization [employer] Address [address] [place] [address] Care Team Providers Care Pilot Fuel Engineer Name Role Phone Jamal CARLISLE DO, Robert William Primary Care Provide r Unavailable Desiree Patrick MD Unavailable Farrah Nicole APRN,SENIOR SALES ADMINISTRATOR Unavailable [phone] Bry Echevarria MD Unavailable Jamal CARLISLE DO, Robert William Unavailable Unav Stephani Diaz MD Primary Care Provider Shruti Vergara RN Unavailable Unavailable Bianka Loera CNP Primary Care Provider Deisree Patrick MD Primary Care P rovider Encounter Details Date Type Department Care Team (Late st Contact Info) Description 09/19/2018 Historical Conversion [facility] Family Medicine [address] [place] [id number] Trish Barone, PT Social History Tobacco Use [...] by:Trish Barone PT Oct 12 2018 5:27PM SUPERVISOR DIALS AMENDMENTS: 1. Patient received 4 feet of green theraband on this date of service. Electronically signed by:Trish Barone PT Oct 12 2018 5:28PM SUPERVISOR DIALS * Trish Barone, PT - 10/03/2018 12:00 [...] per day with the dogs. He attends [employer] with his 2 times a week. OBJECTIVE: [...] by:Trish Barone PT Oct 03 2018 1:23PM SUPERVISOR DIALS * Trish Barone, PT - 09/19/2018 12:00 AM CDT CRISTIAN BLEDSOE : 1945 HX: [id number] DOS: 09/19/2018 REFERRING PROVIDER: Casey Berry D.O. 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 He is currently [...] PATIENT RECEIVED: Patient received 30 minutes of djve-wv-tccg evaluation with three or more comorbidities and three or more elements addressed. Clinical presentation is evolving and clinical complexity is moderate. Patient also received canalith repositioning maneuvers on this date. Trish Barone, PT, [place] #[id number] Electronically signed by:Trish Barone PT Sep 26 2018 8:37AM SUPERVISOR DIALS documented in this encounter Plan of Treatment Not on file documented as of this encounter Visit Diagnoses Not on filedocumented in this encounter Care Teams Pilot Fuel Engineer Relationship Specialty Start Date End Date Casey Berry II, DO PCP - General 11/22/06 08/17/19 Stephani Aleman MD PCP - General Family Medicine 08/18/19 09/16/20 Bianka Loera CNP [address] [place] [address] [address] [place] [phone] PCP - General Nurse Practitioner Family 09/17/2001/10 Desiree Patrick MD [address] [place] [address] PCP - General Electrophysiology 02/23/22 03/09/22 Desiree Patrick MD [address] [place] [address] 08/09/17 Farrah Nicole APRN,SENIOR SALES ADMINISTRATOR [address] [place] [address] 08/09/17 Bry Echevarria MD [facility] [place] [address] 08/09/17 Casey Berry II, DO 08/09/17 Shruti Vergara RN RN Registered Nurse 08/27/20 documented as of this encounter Additional Source Comments PLEASE NOTE: Replies to this message will not be received.[facility] and [facility]
--- OUTSIDE RECORDS SUMMARY | 2024-04-21 13:18 | XMS_ITS | Encounter Summary ---
Author Organization [employer] Address [address] [place] [address] Care Team Providers Care Fourdrinier Tender Name Role Phone Jamal CARLISLE DO, Robert William Primary Care Provide r Unavailable Desiree Patrick MD Unavailable Farrah Nicole APRN,OPERATIONS CLERK Unavailable Bry Echevarria MD Unavailable Jamal CARLISLE DO, Robert William Unavailable Unav Stephani Diaz MD Primary Care Provider Shruti Vergara RN Unavailable Unavailable Bianka Loera CNP Primary Care Provider Desiree Patrick MD Primary Care P rovider Encounter Details Date Type Department Care Team (Late st Contact Info) Description 03/10/2016 Historical Conversion [facility] Family Medicine [address] [place] [address] Casey Berry II, DO Social History Tobacco [...] on filedocumented in this encounter Care Teams Fourdrinier Tender Relationship Specialty Start Date End Date Casey Berry II, DO PCP - General 11/22/06 08/17/19 Stephani Aleman MD PCP - General Family Medicine 08/18/19 09/16/20 Bianka Loera CNP [address] [place] [phone] PCP - General Nurse Practitioner Family 09/17/2001/10 [place] [address] [place] [address] PCP - General Electrophysiology 02/23/22 03/09/22 Desiree Patrick MD [address] [facility] [place] [address] 08/09/17 Farrah Nicole APRN,[facility] [address] [facility] [place] [address] 08/09/17 Bry Echevarria MD [facility] [place] [address] 08/09/17 Casey Berry II, DO 08/09/17 Shruti Vergara RN RN Registered Nurse 08/27/20 documented as of this encounter Additional Source Comments PLEASE NOTE: Replies to this message will not be received.[facility] and [facility]
--- OUTSIDE RECORDS SUMMARY | 2024-04-21 13:18 | XMS_ITS | Encounter Summary ---
Author Organization [employer] Address [address] [place] [address] Care Team Providers Care Master Fisher Name Role Phone Jamal CARLISLE DO, Robert William Primary Care Provide r Unavailable Desiree Patrick MD Unavailable Farrah Nicole APRN,TITLE MANAGER Unavailable Bry Echevarria MD Unavailable Jamal CARLISLE DO, Robert William Unavailable Unav Stephani Diaz MD Primary Care Provider Shruti Vergara RN Unavailable Unavailable Bianka Loera CNP Primary Care Provider Desiree Patrick MD Primary Care P rovider Encounter Details Date Type Department Care Team (Late st Contact Info) Description 10/08/2016 Historical Conversion [facility] Family Medicine [address] [place] [address] Social History Tobacco Use Types Packs/Day Years [...] as of this encounter Nursing Notes * [facility], GENERICPROVIDER - 10/08/2016 12:00 AM CDT Patient calls triage with complaints of elevated heart rate in the 140's since Wednesday morning. He states that he has taken his prescribed Beta-Blockers multiple times and they have not been helping with the elevated heart rate as they should be. Patient denies any shortness of breath, dizziness, lig htheadedness, chest pain or confusion. Patient instructed by fha underwriter to go to the Emergency Room at [facility] to be evaluated. Patient verbalized understanding of instructions. STACY MCCAULEY Electronically signed by:Tammy Coronado RN Oct 08 2016 8:22AM DIRECTOR EDUCATION documented in this encounter Plan of Treatment Not on file documented as of this encounter Visit Diagnoses Not on filedocumented in this encounter Care Teams Master Fisher Relationship Specialty Start Date End Date Casey Berry II, DO PCP - General 11/22/06 08/17/19 Stephani Aleman MD PCP - General Family Medicine 08/18/19 09/16/20 Bianka Loera CNP [address] [facility] [address] [place] [address] PCP - General Nurse Practitioner Family 09/17/2001/10 Desiree Patrick MD [address] [place] [place] [address] PCP - General Electrophysiology 02/23/22 03/09/22 Desiree Patrick MD [address] [place] [address] 08/09/17 Farrah Nicole, PAIN COORDINATOR,TITLE MANAGER [address] [place] [address] 08/09/17 Bry Echevarria MD [address] [place] [place] [address] 08/09/17 Casey Berry II, DO 08/09/17 Shruti Vergara RN RN Registered Nurse 08/27/20 documented as of this encounter Additional Source Comments PLEASE NOTE: Replies to this message will not be received.[facility] and [facility]
--- OUTSIDE RECORDS SUMMARY | 2024-04-21 13:18 | XMS_ITS | Encounter Summary ---
Author Organization [employer] Address [address] [place] [address] Care Team Providers Care Counseling Center Manager Name Role Phone Jamal CARLISLE DO, Robert William Primary Care Provide r Unavailable Desiree Patrick MD Unavailable Farrah Nicole APRN,SHOE PLANNER Unavailable [phone] Bry Echevarria MD Unavailable Jamal CARLISLE DO, Robert William Unavailable Unav Stephani Diaz MD Primary Care Provider Shruti Vergara RN Unavailable Unavailable Bianka Loera CNP Primary Care Provider Desiree Patrick MD Primary Care P rovider Encounter Details Date Type Department Care Team (Late st Contact Info) Description 04/06/2017 Historical Conversion [facility] Family Medicine [address] [place] [address] Casey Berry II, DO Social History Tobacco [...] filedocumented in this encounter Care Teams Counseling Center Manager Relationship Specialty Start Date End Date Casey Berry II, DO PCP - General 11/22/06 08/17/19 Stephani Aleman MD PCP - General Family Medicine 08/18/19 09/16/20 Bianka Loera CNP [address] [facility] [address] [place] [phone] PCP - General Nurse Practitioner Family 09/17/2001/10 [place] [address] [place] [phone] PCP - General Electrophysiology 02/23/22 03/09/22 Desiree Patrick MD [address] [place] [address] 08/09/17 Farrah Nicole APRN,SHOE PLANNER [address] [place] [address] 08/09/17 Bry Echevarria MD [address] [place] [address] 08/09/17 Casey Berry II, DO 08/09/17 Shruti Vergara RN RN Registered Nurse 08/27/20 documented as of this encounter Additional Source Comments PLEASE NOTE: Replies to this message will not be received.[facility] and [facility]
--- OUTSIDE RECORDS SUMMARY | 2024-04-21 13:18 | XMS_ITS | Encounter Summary ---
Author Organization [employer] Address [address] [place] [address] Care Team Providers Care Triple Air Valve Tester Name Role Phone Jamal CARLISLE DO, Robert William Primary Care Provide r Unavailable Desiree Patrick MD Unavailable Farrah Nicole APRN,HEALTH SUPPORT SPECIALIST Unavailable [phone] Bry Echevarria MD Unavailable Jamal CARLISLE DO, Robert William Unavailable Unav Stephani Diaz MD Primary Care Provider Shruti Vergara RN Unavailable Unavailable Bianka Loera CNP Primary Care Provider [phone] Desiree Patrick MD Primary Care P rovider Encounter Details Date Type Department Care Team (Late st Contact Info) Description 08/27/2016 Historical Conversion [facility] Family Medicine [address] [place] [address] Moon Maloney MD Social History Tobacco Use [...] Comments Blood Pressure 175/101 08/27/2016 12:00 AM BENCH WORKER BINDING Pulse - - Temperature - - Respiratory Rate - - Oxygen Saturation - - Inhaled Oxygen Concentration - - Weight 95.7 kg (210 lb 15.7 oz) 017 12:00 AM BENCH WORKER BINDING Height - - Body Mass Index 27.84 [...] on filedocumented in this encounter Care Teams Triple Air Valve Tester Relationship Specialty Start Date End Date Casey Berry II, DO PCP - General 11/22/06 08/17/19 Stephani Aleman MD PCP - General Family Medicine 08/18/19 09/16/20 Bianka Loera CNP [address] [place] [phone] PCP - General Nurse Practitioner Family 09/17/2001/10 [place] [address] [place] [address] PCP - General Electrophysiology 02/23/22 03/09/22 Desiree Patrick MD [address] [facility] [place] [address] 08/09/17 Farrah Nicole APRN,[facility] [address] [place] [address] 08/09/17 Bry Echevarria MD [address] [place] [address] [place] [address] 08/09/17 Casey Berry II, DO 08/09/17 Shruti Vergara RN RN Registered Nurse 08/27/20 documented as of this encounter Additional Source Comments PLEASE NOTE: Replies to this message will not be received.[facility] and [facility]
--- OUTSIDE RECORDS SUMMARY | 2024-04-21 13:18 | XMS_ITS | Encounter Summary ---
Author Organization [employer] Address [address] [place] [address] Care Team Providers Care Azure Architect Name Role Phone Jamal CARLISLE DO, Robert William Primary Care Provide r Unavailable Desiree Patrick MD Unavailable Farrah Nicole APRN,BUHR MILL OPERATOR Unavailable Bry Echevarria MD Unavailable Jamal CARLISLE DO, Robert William Unavailable Unav Stephani Diaz MD Primary Care Provider Shrtui Vergara RN Unavailable Unavailable Bianka Loera CNP Primary Care Provider [phone] Desiree Patrick MD Primary Care P rovider Encounter Details Date Type Department Care Team (Late st Contact Info) Description 09/02/2016 Historical Conversion [facility] Family Medicine [address] [place] [address] Casey El II, DO Social History Tobacco [...] Comments Blood Pressure 151/81 09/02/2016 12:00 AM CORSETIER Pulse - - Temperature - - Respiratory Rate - - Oxygen Saturation - - Inhaled Oxygen Concentration - - Weight 93.5 kg (206 lb 2.1 oz) 09/02/2016 12:00 AM CORSETIER Height 185.1 cm (6' 0.87) 09/02/2016 12:00 AM Saúl WARE Body Mass Index 27.29 09/02/2016 12:00 AM CORSETIER documented in this encounter Functional Status Functional [...] as needed; Therapy: 10Sep2014 to Requested for: [id number] Recorded 7. Metoprolol Tartrate 50 MG Oral Tablet; TAKE 1 TABLET TWICE DAILY; Therapy: (Recorded:21Oct2016) to Recorded 8. Tylenol Extra Strength 500 MG Oral Tablet; Therapy: (Recorded:18Nov2015) to Recorded 9. Warfarin Sodium 5 MG Oral Tablet; Take as directed by [facility]; Therapy: 00Qwb9002 to (Evaluate:64Qse0479) Requested for: 09Iuv0511; Last Rx:70Ulw1715 Ordered Allergies 1. Penicillins 2. Sulfa Drugs [...] Casey El DO; Apr 16 2017 8:13AM CORSETIER * Casey El II, DO - 11/30/2016 [...] healthy by no longer smoking.; Status:Complete; Done: 89Qmo3223 Counseling Total time of encounter was 20 [...] first. At this point in time, the Wool Merchant has not stated that he a risk [...] as needed; Therapy: 10Sep2014 to Requested for: 63Ftb5041 Recorded 4. Metoprolol Tartrate 50 MG Oral Tablet; TAKE 1 TABLET TWICE DAILY; Therapy: (Recorded:21Oct2016) to Recorded 5. Tylenol Extra Strength 500 MG Oral Tablet; Therapy: (Recorded:18Nov2015) to Recorded 6. Warfarin Sodium 5 MG Oral Tablet; Take as directed by [facility]; Therapy: 98Pvc4992 to (Evaluate:12Nov2017) Requested for: 17Nov2016 Recorded Allergies 1. Penicillins 2. Sulfa Drugs Vitals Recorded: 30Nov2016 10:12AM Systolic 121 Diastolic 83 Heart Rate 106 Respiration 20 Temperature 98 F Weight 94.2 kg BMI Calculated 27.49 BSA Calculated 2.18 O2 Saturation 97 Physical Exam Deferred. Signatures Casey El II, D.OWilliam/pj-30 Electronically signed by : Casey El DO; Dec 09 2016 1:14PM CORSETIER * Casey El II, DO - 10/26/2016 12:00 AM CDT Assessment 1. Former smoker: 0 - 10 pack years (V15.82) (Z87.891) Atrial fibrillation/flutter. Plan Awaiting Holter monitor to see what is going to be done next with the Wool Merchant and most likely,Electrophysiology. We finally did get the results from the Holter which showed flutter and they will send him to see the Patch Driller. Reason For Visit patient in for hospital [...] Extra Strength 500 MG Oral Tablet; Therapy: (Recorded:97Yjn2472) to Recorded 6. Warfarin Sodium 5 MG Oral Tablet; Take as directed by [facility]; Therapy: 89Vmx1849 to (Evaluate:28Hcf0676) Requested for: 14Jul2016 Recorded Allergies 1. Penicillins 2. Sulfa Drugs Vitals Recorded: 06Mwe0796 10:40AM Systolic 117, RUE, Sitting Diastolic 73, [...] Casey El DO; Nov 06 2016 8:45AM CORSETIER documented in this encounter H&P Notes * [...] Panel; Status:Hold For - Manual Activation; Requested for:93Vxo4751; Hemoglobin A1C; Status:Hold For - Manual Activation; Requested for:97Fpa6191; SocHx: Former smoker: 0 - 10 pack years Former Smoker: Since tobacco use can have significant health risks, you are helping yourself and others stay healthy by no longer smoking.; Status:Complete; Done: 55Dys8173 Reason For Visit H & P History [...] alcohol. 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 Colonoscopy in 2009. Pneumovax 2009. Prevnar 2015. Current Meds 1. Lisinopril 10 MG Oral Tablet; TAKE 1 TABLET BY MOUTH ONCE DAILY; Therapy: 74Zbl5188 to (Evaluate:67Lca9749) Requested for: 13Jul2016; Last Rx:13Jul2016 Ordered 2. Metoclopramide HCl - 5 MG Oral Tablet; TAKE 1 TABLET as needed; Therapy: 10Sep2014 to Requested for: 02Sep2016 Recorded 3. Metoprolol Tartrate 25 MG Oral Tablet; 1 prn a fib; Therapy: (Recorded:02Sep2016) to Requested for: 02Sep2016 Recorded 4. Tylenol Extra Strength 500 MG Oral Tablet; Therapy: (Recorded:22Wra7165) to Recorded 5. Warfarin Sodium 5 MG Oral Tablet; Take as directed by [facility]; Therapy: 28Jan2016 to (Evaluate:47Ytu5126) Requested for: 14Jul2016 Recorded Allergies 1. Penicillins [...] rash. /RECTAL: Done by urology. Results/Data PHQ-9 80Tmt2075 12:00AM Casey El Test Name Result Flag Reference PHQ-9 0 Alcohol & Drug Questionnaire for Adults 77Ipp8954 12:00AM Casey El Test Name Result Flag Reference Alcohol & Drug Questionnaire for Adults 3 Nurse Note Pt given heel cups by dr el. #[id number] qty 2. mquam information engineer Recorded as Task Date: 09/14/2016 01:01 PM, [...] if you have any questions! Cherelle Gomez [facility] #[id number] Kelly Walls - 15 Sep 2016 7:16 AM TASK REASSIGNED: Previously Assigned To Kelly Walls Michelle - 15 Sep 2016 9:00 AM TASK REASSIGNED: Previously Assigned To Casey El per dr el- dx plantar fasciitis M72.2 thanks. mquam information engineer Signatures Casey El II D.Veena/la-3 Electronically signed by : Casey El DO; Sep 11 2016 1:25PM CORSETIER Electronically signed by : Casey El DO; Sep 16 2016 12:34PM CORSETIER documented in this encounter Plan of Treatment Not on file documented as of this encounter Visit Diagnoses Not on filedocumented in this encounter Care Teams Azure Architect Relationship Specialty Start Date End Date Casey El II, DO PCP - General 11/22/06 08/17/19 Stephani Aleman MD PCP - General Family Medicine 08/18/19 09/16/[address] [employer] [address] [facility] 2 [place] [address] PCP - General Nurse Practitioner Family 09/17/20 7/2 12/31 Desiree Patrick MD [address] [place] [address] PCP - General Electrophysiology 02/23/22 03/09/22 Desiree aPtrick MD [address] [place] [place] [address] 08/09/17 Farrah Nicole APRN,BUHR MILL OPERATOR [address] [place] [place] [address] 08/09/17 Bry Echevarria MD [address] [place] [address] [place] [address] 08/09/17 Casey El II, DO 08/09/17 Shruti Vergara, RN RN Registered Nurse 08/27/20 documented as of this encounter Additional Source Comments PLEASE NOTE: Replies to this message will not be received.[facility]
--- OUTSIDE RECORDS SUMMARY | 2024-04-21 13:18 | XMS_ITS | Encounter Summary ---
Author Organization [employer] Address [address] [place] [address] Care Team Providers Care Oil Field Pipeline Supervisor Name Role Phone Jamal CARLISLE DO, Robert William Primary Care Provide r Unavailable Desiree Patrick MD Unavailable Farrah Nicole APRN,GATE TECHNICIAN Unavailable Bry Echevarria MD Unavailable Jamal CARLISLE DO, Robert William Unavailable Unav Stephani Diaz MD Primary Care Provider Shruti Vergara RN Unavailable Unavailable Bianka Loera CNP Primary Care Provider Desiree Patrick MD Primary Care P rovider Encounter Details Date Type Department Care Team (Late st Contact Info) Description 06/25/[address] [facility] Family Medicine [address] [place] [address] Social History Tobacco Use Types Packs/Day Years [...] as of this encounter Progress Notes * [facility], GENERICPROVIDER - 06/25/2017 12:00 AM CST Medication Reconciliation Post Discharge Name: CRISTIAN BLEDSOE Date of Discharge: 06/24/2017 Current Meds 1. Digoxin 125 MCG Oral Tablet; Therapy: (Recorded:[id number]) to Recorded 2. DilTIAZem HCl - 60 MG Oral Tablet; TAKE 1 TABLET BY MOUTH DAILY; Therapy: 14Apr2017 to (Evaluate:[id number]) Requested for: [id number] Recorded 3. Dofetilide 250 MCG Oral Capsule; TAKE 1 CAPSULE TWICE DAILY; Therapy: (Recorded:[id number]) to Recorded 4. Metoclopramide HCl - 5 MG Oral Tablet (Reglan); TAKE 1 TABLET BY MOUTH THREE TIMES DAILY WITH MEALS; Therapy: 10Sep2014 to (Evaluate:17Sep2017) Requested for: 20May2017; Last Rx:20May2017 Ordered 5. Metoprolol Tartrate 50 MG Oral Tablet; TAKE 1 TABLET TWICE DAILY; Therapy: (Recorded:[id number]) to Recorded 6. Tylenol Extra Strength 500 MG Oral Tablet; Therapy: (Recorded:[id number]) to Recorded 7. Warfarin Sodium 5 MG Oral Tablet (Coumadin); Take as directed by ACC; Therapy: [id number] to (Evaluate:28May2018) Requested for: 02Jun2017 Recorded Medication [...] INR checked next week. Reviewed 24 hour termite control technician line, when to call PCP, and when to call 911. Patient voiced understanding. STACY Rasheed Follow-Up Recommendations Follow up with the following provider(s): cardiology 1 mo I reviewed with the patient the 24 hour nurse line and ecouraged them to call if they had any questions or concerns. Patient voiced understanding. Signatures Electronically signed by : Emma Estrella RN; Jun 25 2017 11:25AM BREAKFAST MANAGER documented in this encounter Plan of Treatment Not on file documented as of this encounter Visit Diagnoses Not on filedocumented in this encounter Care Teams Oil Field Pipeline Supervisor Relationship Specialty Start Date End Date Casey Berry II, DO PCP - General 11/22/06 08/17/19 Stephani Aleman MD PCP - General Family Medicine 08/18/19 09/16/20 Bianka Loera CNP [address] [facility] [address] [facility] 2 [place] [address] PCP - General Nurse Practitioner Family 09/17/20 7/12/31 Desiree Patrick MD [address] [place] [address] PCP - General Electrophysiology 02/23/22 03/09/22 Desiree Patrick MD [address] [place] [address] 08/09/17 Farrah Nicole APRN,GATE TECHNICIAN [address] [place] [address] 08/09/17 Bry Echevarria MD [facility] [place] [address] 08/09/17 Casey Berry II, DO 08/09/17 Shruti Vergara RN RN Registered Nurse 08/27/20 documented as of this encounter Additional Source Comments PLEASE NOTE: Replies to this message will not be received.[facility] and [facility]
--- OUTSIDE RECORDS SUMMARY | 2024-04-21 13:18 | XMS_ITS | Encounter Summary ---
Author Organization [employer] Address [address] [place] [address] Care Team Providers Care Senior Engineering Manager Name Role Phone Jamal CARLISLE DO, Robert William Primary Care Provide r Unavailable Desiree Patrick MD Unavailable Farrah Nicole APRN,HOISTING LABORER Unavailable [phone] Bry Echevarria MD Unavailable [phone] Jamal CARLISLE DO, Robert William Unavailable Unav Stephani Diaz MD Primary Care Provider Shruti Vergara RN Unavailable Unavailable Bianka Loera CNP Primary Care Provider Desiree Patrick MD Primary Care P rovider Encounter Details Date Type Department Care Team (Late st Contact Info) Description 10/21/2016 Historical Conversion [facility] Family Medicine [address] [place] [address] Social History Tobacco Use Types Packs/Day Years [...] filedocumented in this encounter Care Teams Senior Engineering Manager Relationship Specialty Start Date End Date Casey Berry II, DO PCP - General 11/22/06 08/17/19 Stephani Aleman MD PCP - General Family Medicine 08/18/19 09/16/20 Bianka Loera CNP [address] [place] [phone] PCP - General Nurse Practitioner Family 09/17/2001/10 Desiree Patrick MD [address] [place] [address] PCP - General Electrophysiology 02/23/22 03/09/22 Desiree Patrick MD [address] [place] [address] 08/09/17 Farrah Nicole APRN,HOISTING LABORER [address] [place] [address] 08/09/17 Bry Echevarria MD [address] [place] [address] 08/09/17 Casey Berry II, DO 08/09/17 Shruti Vergara RN RN Registered Nurse 08/27/20 documented as of this encounter Additional Source Comments PLEASE NOTE: Replies to this message will not be received.[facility] and [facility]
--- OUTSIDE RECORDS SUMMARY | 2024-04-21 13:18 | XMS_ITS | Encounter Summary ---
Author Organization [employer] Address [address] [place] [address] Care Team Providers Care Sales Porter Name Role Phone Jamal CARLISLE DO, Robert William Primary Care Provide r Unavailable Desiree Patrick MD Unavailable Farrah Nicole APRN,ICING MACHINE OPERATOR Unavailable Bry Echevarria MD Unavailable Jamal CARLISLE DO, Robert William Unavailable Unav Stephani Diaz MD Primary Care Provider Shruti Vergara RN Unavailable Unavailable Bianka Loera CNP Primary Care Provider Desiree Patrick MD Primary Care P rovider Encounter Details Date Type Department Care Team (Late st Contact Info) Description 03/30/2017 Historical Conversion [facility] Family Medicine [address] [facility] [place] [address] Desiree Rubi PAC [address] [place] [address] Social History Tobacco Use Types [...] filedocumented in this encounter Care Teams Sales Porter Relationship Specialty Start Date End Date Casey Berry II, DO PCP - General 11/22/06 08/17/19 Stephani Aleman MD PCP - General Family Medicine 08/18/19 09/16/20 Bianka Loera CNP [address] [place] [address] 2 [place] [address] PCP - General Nurse Practitioner Family 09/17/20 712/31 Desiree Patrick MD [address] [place] [address] PCP - General Electrophysiology 02/23/22 03/09/22 Desiree Patrick MD [address] [place] [address] 08/09/17 Farrah Nicole APRN,ICING MACHINE OPERATOR [address] [place] [address] 08/09/17 Bry Echevarria MD [address] [place] [address] 08/09/17 Casey Berry II, DO 08/09/17 Shruti Vergara RN RN Registered Nurse 08/27/20 documented as of this encounter Additional Source Comments PLEASE NOTE: Replies to this message will not be received.[facility] and [facility]
--- OUTSIDE RECORDS SUMMARY | 2024-04-21 13:18 | XMS_ITS | Encounter Summary ---
Author Organization [employer] Address [address] [place] [address] Care Team Providers Care Ssis Developer Name Role Phone Jamal CARLISLE DO, Robert William Primary Care Provide r Unavailable Desiree Patrick MD Unavailable Farrah Nicole APRN,COUNTRY SALES MANAGER Unavailable Bry Echevarria MD Unavailable [phone] Jamal CARLISLE DO, Robert William Unavailable Unav Stephani Diaz MD Primary Care Provider Shruti Vergara RN Unavailable Unavailable Bianka Loera CNP Primary Care Provider Desiree Patrick MD Primary Care P rovider Encounter Details Date Type Department Care Team (Late st Contact Info) Description 11/06/2016 Historical Conversion [facility] Family Medicine [address] [place] [address] Moon Maloney MD Social History Tobacco Use [...] on filedocumented in this encounter Care Teams Ssis Developer Relationship Specialty Start Date End Date Casey Berry II, DO PCP - General 11/22/06 08/17/19 Stephani Aleman MD PCP - General Family Medicine 08/18/19 09/16/20 Bianka Loera CNP [address] [place] [address] 2 [place] [phone] PCP - General Nurse Practitioner Family 09/17/2001/10 Desiree Patrick MD [address] [place] [address] PCP - General Electrophysiology 02/23/22 03/09/22 Desiree Patrick MD [address] [place] [address] 08/09/17 Farrah Nicole APRN,COUNTRY SALES MANAGER [address] [place] [address] 08/09/17 Bry Echevarria MD [address] [place] [address] 08/09/17 Casey Berry II, DO 08/09/17 Shruti Vergara RN RN Registered Nurse 08/27/20 documented as of this encounter Additional Source Comments PLEASE NOTE: Replies to this message will not be received.[facility]
--- OUTSIDE RECORDS SUMMARY | 2024-04-21 13:18 | XMS_ITS | Encounter Summary ---
Author Organization [employer] Address [address] [place] [address] Care Team Providers Care Accounting Specialist Name Role Phone Jamal CARLISLE DO, Robert William Primary Care Provide r Unavailable Desiree Patrick MD Unavailable Farrah Nicole APRN,BOOKS SALESPERSON Unavailable Bry Echevarria MD Unavailable Jamal CARLISLE DO, Robert William Unavailable Unav Stephani Diaz MD Primary Care Provider Shruti Vergara RN Unavailable Unavailable Bianka Loera CNP Primary Care Provider [phone] Desiree Patrick MD Primary Care P rovider Encounter Details Date Type Department Care Team (Late st Contact Info) Description 06/24/2016 Historical Conversion [facility] Family Medicine [address] [place] [address] Casey Berry II, DO Social History Tobacco [...] Comments Blood Pressure 115/76 06/24/2016 12:00 AM DEVELOPMENT COORDINATOR Pulse - - Temperature - - Respiratory Rate - - Oxygen Saturation - - Inhaled Oxygen Concentration - - Weight 91.5 kg (201 lb 11.5 oz) 016 12:00 AM DEVELOPMENT COORDINATOR Height - - Body Mass Index 26.61 [...] on filedocumented in this encounter Care Teams Accounting Specialist Relationship Specialty Start Date End Date Casey Berry II, DO PCP - General 11/22/06 08/17/19 Stephani Aleman MD PCP - General Family Medicine 08/18/19 09/16/20 Bianka Loera CNP [address] [place] [phone] PCP - General Nurse Practitioner Family 09/17/2001/10 Desiree Patrick MD [address] [place] [address] PCP - General Electrophysiology 02/23/22 03/09/22 Desiree Patrick MD [address] [place] [place] [address] 08/09/17 Farrah Nicole APRN,BOOKS SALESPERSON [address] [place] [address] 08/09/17 Bry Echevarria MD [address] [place] [address] [place] [address] 08/09/17 Casey Berry II, DO 08/09/17 Shruti Vergara RN RN Registered Nurse 08/27/20 documented as of this encounter Additional Source Comments PLEASE NOTE: Replies to this message will not be received.[facility]
--- OUTSIDE RECORDS SUMMARY | 2024-04-21 13:18 | XMS_ITS | Encounter Summary ---
Author Organization [employer] Address [address] [place] [address] Care Team Providers Care Quiller Runner Name Role Phone Jamal CARLISLE DO, Robert William Primary Care Provide r Unavailable Desiree Patrick MD Unavailable Farrah Nicole APRN,GARMENT MENDER Unavailable [phone] Bry Echevarria MD Unavailable Jamal CARLISLE DO, Robert William Unavailable Unav xiable Stephani Aleman MD Primary Care Provider Shruti Vergara RN Unavailable Unavailable Bianka oLera CNP Primary Care Provider Desiree Patrick MD Primary Care P rovider Encounter Details Date Type Department Care Team (Late st Contact Info) Description 10/09/2016 Historical Conversion [facility] Family Medicine [address] [facility] [place] [address] Jana Aleman APRN,AREA LOSS PREVENTION MANAGER [address] [place] [address] Social History Tobacco Use [...] this encounter Progress Notes * Jana Aleman, PHYSICIAN SUPPORT COORDINATOR,AREA LOSS PREVENTION MANAGER - 10/09/2016 12:00 AM CDT Assessment 1. [...] [facility] He is instructed to return should his [...] Thao Phone Number to Contact Patient: : [phone] to Provider, Practice or Agency: : Either Shanda Mark or [facility] Reason For Visit Patient in [...] 1 TABLET BY MOUTH ONCE DAILY; Therapy: [id number] to (Evaluate:[id number]) Requested for: 13Jul2016; Last Rx:13Jul2016 Ordered 3. Metoclopramide HCl - 5 MG Oral Tablet; TAKE 1 TABLET as needed; Therapy: 10Sep2014 to Requested for: [id number] Recorded 4. Metoprolol Tartrate 25 MG Oral Tablet; 1 prn a fib; Therapy: (Recorded:[id number]) to Requested for: [id number] Recorded 5. Tylenol Extra Strength 500 MG Oral Tablet; Therapy: (Recorded:[id number]) to Recorded 6. Warfarin Sodium 5 MG Oral Tablet; Take as directed by ACC; Therapy: [id number] to (Evaluate:[id number]) Requested for: 14Jul2016 Recorded Allergies 1. Penicillins [...] RN CNP RN,NIKKI; Oct 18 2016 1:54PM EGG SEPARATOR Electronically signed by : Casey Berry DO; Oct 22 2016 1:20PM EGG SEPARATOR documented in this encounter Plan of Treatment Not on file documented as of this encounter Visit Diagnoses Not on filedocumented in this encounter Care Teams Quiller Runner Relationship Specialty Start Date End Date Casey Berry II, DO PCP - General 11/22/06 08/17/19 Stephani Aleman MD PCP - General Family Medicine 08/18/19 09/16/20 Bianka Loera CNP [address] [facility] [address] [place] [address] PCP - General Nurse Practitioner Family 09/17/20 712/31 [place] [address] [place] [address] [place] [address] PCP - General Electrophysiology 02/23/22 03/09/22 Desiree Patrick MD [address] [place] [address] 08/09/17 Farrah Nicole, PHYSICIAN SUPPORT COORDINATOR,GARMENT MENDER [address] [place] [address] 08/09/17 Bry Echevarria MD [address] [place] [address] [place] [address] 08/09/17 Casey Berry II, DO 08/09/17 Shruti Vergara RN RN Registered Nurse 08/27/20 documented as of this encounter Additional Source Comments PLEASE NOTE: Replies to this message will not be received.[facility] and [facility]
--- OUTSIDE RECORDS SUMMARY | 2024-04-21 13:18 | XMS_ITS | Encounter Summary ---
Author Organization [employer] Address [address] [place] [address] Care Team Providers Care Funeral Car Chauffeur Name Role Phone Jamal CARLISLE DO, Robert William Primary Care Provide r Unavailable Desiree Patrick MD Unavailable Farrah Nicole APRN,PRISON CLASSIFICATION COUNSELOR Unavailable Bry Echevarria MD Unavailable [phone] Jamal CARLISLE DO, Robert William Unavailable Unav Stephani Diaz MD Primary Care Provider [phone] Shruti Vergara RN Unavailable Unavailable Bianka Loera CNP Primary Care Provider Desiree Patrick MD Primary Care P rovider Encounter Details Date Type Department Care Team (Late st Contact Info) Description 11/30/2016 Historical Conversion [facility] Family Medicine [address] [place] [address] Casey Berry II, DO Social History Tobacco [...] on filedocumented in this encounter Care Teams Funeral Car Chauffeur Relationship Specialty Start Date End Date Casey Berry II, DO PCP - General 11/22/06 08/17/19 Stephani Aleman MD PCP - General Family Medicine 08/18/19 09/16/20 Bianka Loera CNP [address] [place] [address] 2 [place] [phone] PCP - General Nurse Practitioner Family 09/17/2001/10 [place] [address] [place] [address] PCP - General Electrophysiology 02/23/22 03/09/22 Desiree Patrick MD [address] [place] [address] 08/09/17 Farrah Nicole APRN,PRISON CLASSIFICATION COUNSELOR [address] [place] [address] 08/09/17 Bry Echevarria MD [facility] [place] [address] 08/09/17 Casey Berry II, DO 08/09/17 Shruti Vergara RN RN Registered Nurse 08/27/20 documented as of this encounter Additional Source Comments PLEASE NOTE: Replies to this message will not be received.[facility] and [facility]
--- OUTSIDE RECORDS SUMMARY | 2024-04-21 13:18 | XMS_ITS | Encounter Summary ---
Author Organization [employer] Address [address] [place] [address] Care Team Providers Care Grapple Skidder Operator Name Role Phone Jamal CARLISLE DO, Robert William Primary Care Provide r Unavailable Desiree Patrick MD Unavailable Farrah Nicole APRN,TOOL GRINDER SET UP OPERATOR GEAR Unavailable Bry Echevarria MD Unavailable [phone] Jamal CARLISLE DO, Robert William Unavailable Unav Stephani Diaz MD Primary Care Provider [phone] Shruti Vergara RN Unavailable Unavailable Bianka Loera CNP Primary Care Provider Desiree Patrick MD Primary Care P rovider Encounter Details Date Type Department Care Team (Late st Contact Info) Description 12/31/2016 Historical Conversion [facility] Family Medicine [address] [facility] [place] [address] Desiree Rubi PAC [address] [place] [address] Social History Tobacco Use Types [...] on filedocumented in this encounter Care Teams Grapple Skidder Operator Relationship Specialty Start Date End Date Casey Berry II, DO PCP - General 11/22/06 08/17/19 Stephani Aleman MD PCP - General Family Medicine 08/18/19 09/16/20 Bianka Loera CNP [address] [facility] [address] [place] [address] PCP - General Nurse Practitioner Family 09/17/2001/10 Desiree Patrick MD [address] [place] [address] PCP - General Electrophysiology 02/23/22 03/09/22 Desiree Patrick MD [address] [place] [address] 08/09/17 Farrah Nicole APRN,TOOL GRINDER SET UP OPERATOR GEAR [address] [place] [address] 08/09/17 Bry Echevarria MD [address] [place] [address] [place] [address] 08/09/17 Casey Berry II, DO 08/09/17 Shruti Vergara RN RN Registered Nurse 08/27/20 documented as of this encounter Additional Source Comments PLEASE NOTE: Replies to this message will not be received.[facility]
--- OUTSIDE RECORDS SUMMARY | 2024-04-21 13:18 | XMS_ITS | Encounter Summary ---
Author Organization [facility] [employer] [facility] Address [address] [place] [address] Care Team Providers Care Test Equipment Mechanic Name Role Phone Jamal CARLISLE DO, Robert William Primary Care Provide r Unavailable Desiree Patrick MD Unavailable Farrah Nicole APRN,JANITORIAL ACCOUNT MANAGER Unavailable Bry Echevarria MD Unavailable Jamal CARLISLE DO, Robert William Unavailable Unav Stephani Diaz MD Primary Care Provider [phone] Shruti Vergara RN Unavailable Unavailable Bianka Loera CNP Primary Care Provider Desiree Patrick MD Primary Care P rovider Encounter Details Date Type Department Care Team (Late st Contact Info) Description 12/31/2016 HIM Technology Applications Consultant [facility] Vascular [address] [address] Gil Solares MD Social History Tobacco Use [...] ADULT WITH OR WITHOUT CONTRAST PERFORMED BY: [employer] [place], [place] SITE: [place], [place] INTERPRETED BY: [facility] [place], [place] TRANSTHORACIC ECHOCARDIOGRAM REPORT REFERRING DIAGNOSIS: Paroxysmal [...] fibrillation. Note: This study was performed by [employer] for [place]. Only the interpretation wasperformed at the [facility] [place]. Electronically signed Gil Solares MD, [facility] Cut Out Stitcher , 04:45 P A kmg/Doc#: [id number] cc: Adult Normal Value Adult Patient Values [...] Blood pressure: 116/81 mmHg Previous study: 11/19/15 [place] Opener: WAT[place] documented in this encounter Plan of [...] - 12/31/2016 12:00 AM CDT PERFORMED BY: [employer] [place], [place] SITE: [place], [place] INTERPRETED BY: [facility] [place], [place] TRANSTHORACIC ECHOCARDIOGRAM REPORT REFERRING DIAGNOSIS: Paroxysmal [...] fibrillation. Note: This study was performed by [facility] for [place].Only the interpretation was performed at the [facility]. Electronically signed Gil Solraes MD, [facility] Cut Out Stitcher , 04:45 P A taylag/Doc#: [id number] cc: Adult Normal Value Adult Patient Values [...] dt 254 ms E' sept 6.04 cm/sec [id number] ms E/e' 10 E' lat 9.65 cm/sec IMPRESSION: Patient height: 185 cm Patient weight: 94 kg Blood pressure: 116/81 mmHg Previous study: 11/19/15 [place]atra Opener: HIEU Desiree NICHOLS documented in this encounter Visit Diagnoses Not on filedocumented in this encounter Care Teams Test Equipment Mechanic Relationship Specialty Start Date End Date Casey Berry II, DO PCP - General 11/22/06 08/17/19 Stephani Aleman MD PCP - General Family Medicine 08/18/19 09/16/20 Bianka Loera, PUSHER OPERATOR [address] [place] [phone] PCP - General Nurse Practitioner Family 09/17/20 712/31 Desiree Patrick MD [address] [place] [address] PCP - General Electrophysiology 02/23/22 03/09/22 Desiree Patrick MD [address] [place] [address] 08/09/17 Farrah Nicole APRN,JANITORIAL ACCOUNT MANAGER [address] [place] [address] 08/09/17 Bry Echevarria MD [address] [place] [address] 08/09/17 Casey Berry II, DO 08/09/17 Shruti Vergara RN RN Registered Nurse 08/27/20 documented as of this encounter Additional Source Comments PLEASE NOTE: Replies to this message will not be received.[facility] and [facility]
--- OUTSIDE RECORDS SUMMARY | 2024-04-21 13:18 | XMS_ITS | Encounter Summary ---
Author Organization [employer] Address [address] [place] [address] Care Team Providers Care Supervisor Of Officials Name Role Phone Jamal CARLISLE DO, Robert William Primary Care Provide r Unavailable Desiree Patrick MD Unavailable Farrah Nicole APRN,WHOLESALE AGRONOMIST Unavailable [phone] Bry Echevarria MD Unavailable Jamal CARLISLE DO, Robert William Unavailable Unav Stephani Diaz MD Primary Care Provider Shruti Vergara RN Unavailable Unavailable Bianka Loera CNP Primary Care Provider Desiree Patrick MD Primary Care P rovider Encounter Details Date Type Department Care Team (Late st Contact Info) Description 10/26/2016 Historical Conversion [facility] Family Medicine [address] [place] [id number] Casey Berry II, DO Social History Tobacco [...] filedocumented in this encounter Care Teams Supervisor Of Officials Relationship Specialty Start Date End Date Casey Berry II, DO PCP - General 11/22/06 08/17/19 Stephani Aleman MD PCP - General Family Medicine 08/18/19 09/16/20 Bianka Loera CNP [address] [place] [address] [address] [place] [phone] PCP - General Nurse Practitioner Family 09/17/2001/10 [place] [address] [place] [phone] PCP - General Electrophysiology 02/23/22 03/09/22 Desiree Patrick, MD [address] [place] [address] 08/09/17 Farrah Nicole APRN,[facility] [address] [place] [address] 08/09/17 Bry Echevarria MD [address] [place], [place] [address] [address] 08/09/17 Casey Berry II, DO 08/09/17 Shruti Vergara RN RN Registered Nurse 08/27/20 documented as of this encounter Additional Source Comments PLEASE NOTE: Replies to this message will not be received.[facility] and [facility]
--- OUTSIDE RECORDS SUMMARY | 2024-04-21 13:18 | XMS_ITS | Encounter Summary ---
Author Organization [employer] Address [address] [place] [address] Care Team Providers Care Linoleum Floor Layer Name Role Phone Jamal CARLISLE DO, Robert William Primary Care Provide r Unavailable Desiree Patrick MD Unavailable Farrah Nicole APRN,CLINICAL RESEARCH MONITOR Unavailable Bry Echevarria MD Unavailable [phone] Jamal CARLISLE DO, Robert William Unavailable Unav Stephani Diaz MD Primary Care Provider Shruti Vergara RN Unavailable Unavailable Bianka Loera CNP Primary Care Provider Desiree Patrick MD Primary Care P rovider Encounter Details Date Type Department Care Team (Late st Contact Info) Description 10/17/2016 Historical Conversion [facility] Family Medicine [address] [place] [id number] Social History Tobacco Use Types Packs/Day Years [...] do you have serious difficulty hearing? Yes-slightly [place] 10/17/2016 Are you blind or do you [...] on filedocumented in this encounter Care Teams Linoleum Floor Layer Relationship Specialty Start Date End Date Casey Berry II, DO PCP - General 11/22/06 08/17/19 Stephani Aleman MD PCP - General Family Medicine 08/18/19 09/16/20 Bianka Loera CNP [address] [place] [phone] PCP - General Nurse Practitioner Family 09/17/2001/10 [place] [address] [place] [phone] PCP - General Electrophysiology 02/23/22 03/09/22 Desiree Patrick MD [address] [place] [address] 08/09/17 Farrah Nicole APRN,[facility] [address] [place] [address] 08/09/17 Bry Echevarria MD [address] [place] [address] [place] [address] 08/09/17 Casey Berry II, DO 08/09/17 Shruti Vergara RN RN Registered Nurse 08/27/20 documented as of this encounter Additional Source Comments PLEASE NOTE: Replies to this message will not be received.[facility] and [facility]
--- OUTSIDE RECORDS SUMMARY | 2024-04-21 13:18 | XMS_ITS | Encounter Summary ---
Author Organization [employer] Address [address] [place] [address] Care Team Providers Care Jig Builder Helper Name Role Phone Jamal CARLISLE DO, Robert William Primary Care Provide r Unavailable Desiree Patrick MD Unavailable Farrah Nicole APRN,FILTER WORKER Unavailable Bry Echevarria MD Unavailable Jamal CARLISLE DO, Robert William Unavailable Unav Stephani Diaz MD Primary Care Provider [phone] Shruti Vergara RN Unavailable Unavailable Bianka Loera CNP Primary Care Provider Desiree Patrick MD Primary Care P rovider Encounter Details Date Type Department Care Team (Late st Contact Info) Description 12/01/2016 Historical Conversion [facility] Family Medicine [address] [place] [phone] Moon Maloney MD Social History Tobacco Use [...] on filedocumented in this encounter Care Teams Jig Builder Helper Relationship Specialty Start Date End Date Casey Berry II, DO PCP - General 11/22/06 08/17/19 Stephani Aleman MD PCP - General Family Medicine 08/18/19 09/16/20 Bianka Loera CNP [address] [place] [address] [address] [place] [phone] PCP - General Nurse Practitioner Family 09/17/2001/10 [place] [address] [place] [phone] PCP - General Electrophysiology 02/23/22 03/09/22 Desiree Patrick MD [address] [place] [address] 08/09/17 Farrah Nicole APRN,FILTER WORKER [address] [place] [address] 08/09/17 Bry Echevarria MD [address] [place] [address] 08/09/17 Casey Berry II, DO 08/09/17 Shruti Vergara RN RN Registered Nurse 08/27/20 documented as of this encounter Additional Source Comments PLEASE NOTE: Replies to this message will not be received.[facility] and [facility]
--- OUTSIDE RECORDS SUMMARY | 2024-04-21 13:18 | XMS_ITS | Encounter Summary ---
Author Organization [employer] Address [address] [place] [address] Care Team Providers Care Licensed Home Inspector Name Role Phone Jamal CARLISLE DO, Robert William Primary Care Provide r Unavailable Desiree Patrick MD Unavailable Farrah Nicole APRN,DINKEY LOCOMOTIVE OPERATOR Unavailable [phone] Bry Echevarria MD Unavailable Jamal CARLISLE DO, Robert William Unavailable Unav Stephani Diaz MD Primary Care Provider [phone] Shruti Vergara RN Unavailable Unavailable Bianka Loera CNP Primary Care Provider Desiree Patrick MD Primary Care P rovider Encounter Details Date Type Department Care Team (Late st Contact Info) Description 02/03/2017 Historical Conversion [facility] Family Medicine [address] [place] [id number] Social History Tobacco Use Types Packs/Day Years [...] as of this encounter Procedure Notes * [facility] 01/05/2018 12:00 AM CDTAssociated Order(s): ANTICOAGULATION [...] by:Tiffani Carrero RN Jan 05 2018 12:21PM PAINT DEPARTMENT SUPERVISOR * [facility] 12/21/2017 12:00 AM CDTAssociated Order(s): [...] by:Tiffani Carrero RN Dec 21 2017 8:31AM PAINT DEPARTMENT SUPERVISOR * [facility], GENERICPROVID[facility] - 11/24/2017 12:00 AM CDTAssociated Order(s): ANTICOAGULATION Anticoagulation [facility] Name: CRISTIAN BLEDSOE : 1945 DOS: [...] by:Tiffani Carrero RN Nov 24 2017 2:41PM PAINT DEPARTMENT SUPERVISOR * [facility], [facility] - 10/27/2017 12:00 AM CDTAssociated Order(s): ANTICOAGULATION Anticoagulation [facility] Name: CRISTIAN BLEDSOE : 1945 DOS: 10/27/2017 Cristian is a patient of Dr. Berry. He is here today for anticoagulation assessment and INR check for adiagnosis of atrial fibrillation. Patient states that he has not been feeling well and has been suffering with spinal stenosis. He reports that he has been taking soma for a muscle relaxer. He also reports that his icicle machine operator has changed his medications. Patient stales that he is no longer takingany rate control medications. INR tested today is therapeutic at 2.0 with the recommended range of 2.0 to 3.0. He will continue Coumadin at 5 mg daily with an INR recheck in one month, sooner for anychanges. Patient verbalizes understanding. Electronically signed by:Tiffani Carrero RN Oct 28 2017 7:02AM PAINT DEPARTMENT SUPERVISOR * [facility] 09/29/2017 12:00 AM CDTAssociated Order(s): ANTICOAGULATION [...] experience bradycardia and is working with his icicle machine operator to manage his beta blockers slowly. INR tested today is therapeutic at 2.1 with the recommended range of 2.0 to 3.0. He will continue Coumadin at 5 mg daily with an INR recheck in one month, sooner for any changes. Patient verbalizes understanding. Electronically signed by:Tiffani Carrero RN Sep 29 2017 2:09PM PAINT DEPARTMENT SUPERVISOR * [facility], [facility]OV[facility]RANDO - 09/15/2017 12:00 AM [...] that Dr. Berry will converse with his icicle machine operator to see if they should change some of his heart medications. Patient will call [facility] nurse with any updates. INR tested today is 1.9 with the recommended range of 2.0 to 3.0. He will adjust Coumadin to 5 mg daily with an INR recheck in two weeks. Patient verbalizes understanding. Electronically signed by:Tiffani Carrero RN Sep 15 2017 11:42AM PAINT DEPARTMENT SUPERVISOR * [facility] - 08/18/2017 12:00 [...] by:Tiffani Carrero RN Aug 18 2017 6:00PM PAINT DEPARTMENT SUPERVISOR * [facility] - 07/09/2017 12:00 AM CSTAssociated [...] by:Tiffani Carrero RN Jul 09 2017 11:28AM PAINT DEPARTMENT SUPERVISOR * [facility] - 06/16/2017 12:00 AM CSTAssociated Order(s): ANTICOAGULATION [...] INR checks per Dr. Patrick at [facility] Cardiology in preparation for taking dofetilide [...] by:Tiffani Carrero RN Jun 16 2017 4:18PM PAINT DEPARTMENT SUPERVISOR * [facility] - 06/09/2017 12:00 AM CSTAssociated Order(s): ANTICOAGULATION Anticoagulation [facility] Name: CIRSTIAN BLEDSOE : 1945 DOS: 06/09/2017 This is a patient of Dr. Berry. He is here today for an anticoagulation assessment and INR check fora diagnosis of atrial fibrillation. He states that he has been feeling well. Patient denies any recent medication changes. He reports that he needs weekly INR checks per Dr. Patrick at [facility] in preparation for taking dofetilide [...] by:Tiffani Carrero RN Jun 09 2017 3:40PM PAINT DEPARTMENT SUPERVISOR * [facility], GENERICPROVIDER - 06/02/2017 12:00 AM [...] weekly INR checks per Dr. Patrick at [facility] in preparation for taking dofetilide and a [...] by:Tiffani Carrero RN Jun 02 2017 9:39AM PAINT DEPARTMENT SUPERVISOR AMENDMENTS: 1. current INR and Coumadin dosing. Electronically signed by:Tiffani Carrero RN Jun 09 2017 3:41PM PAINT DEPARTMENT SUPERVISOR * [facility]INPR[facility] - 05/26/2017 12:00 AM [...] INR checks per Dr. Patrick at [facility] in preparation for taking dofetilide [...] by:Tiffani Carrero RN May 26 2017 9:42AM PAINT DEPARTMENT SUPERVISOR * [facility] - 05/19/2017 12:00 AM [...] INR checks per Dr. Patrick at [facility] in preparation for taking dofetilide [...] by:Tiffani Carrero RN May 19 2017 3:13PM PAINT DEPARTMENT SUPERVISOR * [facility], GENERICPROVIDER - 05/14/2017 12:00 AM CDTAssociated Order(s): ANTICOAGULATION Email communication received from patient today: ALLAN Vera, RN [facility] (direct phone) [phone] Per our phone conversation of yesterday afternoon, I will be having an initiation of Tikosyn (Dofetilide) at [facility] beginning on June 21. To prepare for this, my icicle machine operator,Dr. Desiree Patrick, has requested INR lab reports demonstrating 4 to 5 weeks of INR levels between 2.5 and 3 prior to the initiation of Tikosyn. Would you please fax my INR lab reports for the month of May to Tamika, Dr. Patrick???s nurse, at (fax) [phone]? The phone number for Dr. Patrick is [phone]. As we discussed, I will come in for INR testing each Wednesday morning at 9:30 AM to meet this requirement. Thank you, Anurag Bledsoe Electronically signed by:Tiffani Carrero RN May 14 2017 9:46AM PAINT DEPARTMENT SUPERVISOR * [facility] - 05/10/2017 12:00 AM CDTAssociated Order(s): [...] INR checks per Dr. Patrick at [facility] in preparation for taking dofetilide [...] by:Tiffani Carrero RN May 10 2017 3:11PM PAINT DEPARTMENT SUPERVISOR * [facility] - 04/06/2017 12:00 AM [...] by:Tiffani Carrero RN Apr 06 2017 12:37PM PAINT DEPARTMENT SUPERVISOR * [facility] - 03/03/2017 12:00 AM [...] He will have INR checked in the [place] lab prior to his appointment with Dr. Maloney. Patient verbalized understanding. Electronically signed by:Tiffani Carrero RN Mar 03 2017 12:02PM PAINT DEPARTMENT SUPERVISOR * [facility] - 02/03/2017 12:00 AM [...] by:Tiffani Carrero RN Feb 03 2017 10:11AM PAINT DEPARTMENT SUPERVISOR documented in this encounter Plan of [...] Results * ANTICOAGULATION (01/05/2018) Narrative Procedure Note [facility], GENERICPROVIDER - 01/05/2018 12:00 AM CDT Anticoagulation [facility] Name: CRISTIAN BLEDSOE : 1945 DOS: [...] by:Tiffani Carrero RN Jan 05 2018 12:21PM PAINT DEPARTMENT SUPERVISOR [facility] OTHER * ANTICOAGULATION (12/21/2017) Narrative Procedure Note [facility] - 12/21/2017 12:00 AM CDT Anticoagulation [facility] Name: CRISTIAN BLEDSOE : 1945 DOS: [...] by:Tiffani Carrero RN Dec 21 2017 8:31AM PAINT DEPARTMENT SUPERVISOR [facility] OTHER * ANTICOAGULATION (11/24/2017) Narrative Procedure Note [facility] - 11/24/2017 12:00 AM CDT Anticoagulation [facility] Name: CRISTIAN BLEDSOE : 1945 DOS: [...] by:Tiffani Carrero RN Nov 24 2017 2:41PM PAINT DEPARTMENT SUPERVISOR [facility] OTHER * ANTICOAGULATION (10/27/2017) Narrative Procedure Note [facility] - 10/27/2017 12:00 AM CDT Anticoagulation [facility] Name: CRISTIAN BLEDSOE : 1945 DOS: 10/27/2017 Cristian is a patient of Dr. Berry. He is here today for anticoagulationassessment and INR check for a diagnosis of atrial fibrillation. Patientstates that he has not been feeling well and has been suffering withspinal stenosis. He reports that he has been taking soma for a musclerelaxer. He also reports that his icicle machine operator has changed hismedications. Patient stales that he is no longer taking any rate controlmedications. INR tested today is therapeutic at 2.0 with the recommendedrange of 2.0 to 3.0. He will continue Coumadin at 5 mg daily with an INRrecheck in one month, sooner for any changes. Patient verbalizesunderstanding. Electronically signed by:Tiffani Carrero RN Oct 28 2017 7:02AM PAINT DEPARTMENT SUPERVISOR [facility] OTHER * ANTICOAGULATION (09/29/2017) Narrative Procedure Note [facility] - 09/29/2017 12:00 AM CDT Anticoagulation [facility] Name: CRISTIAN BLEDSOE : 1945 DOS: 09/29/2017 Cristian is a patient of Dr. Berry. He is here today for anticoagulationassessment and INR check for a diagnosis of atrial fibrillation. Patientstates that he is feeling well. He denies any changes in medication.Patient reports that he continues to experience bradycardia and is workingwith his icicle machine operator to manage his beta blockers slowly. INR testedtoday is therapeutic at 2.1 with the recommended range of 2.0 to 3.0. Hewill continue Coumadin at 5 mg daily with an INR recheck in one month,sooner for any changes. Patient verbalizes understanding. Electronically signed by:Tiffani Carrero RN Sep 29 2017 2:09PM PAINT DEPARTMENT SUPERVISOR [facility] OTHER * ANTICOAGULATION (09/15/2017) Narrative Procedure Note [facility] - 09/15/2017 12:00 AM CST Anticoagulation Clinic [facility] Name: [...] statesthat Dr. Berry will converse with his icicle machine operator to see if they shouldchange some of his heart medications. Patient will call [facility] nurse with anyupdates. INR tested today is 1.9 with the recommended range of 2.0 to 3.0.He will adjust Coumadin to 5 mg daily with an INR recheck in two weeks.Patient verbalizes understanding. Electronically signed by:Tiffani Carrero RN Sep 15 2017 11:42AM PAINT DEPARTMENT SUPERVISOR [facility] OTHER * ANTICOAGULATION (08/18/2017) Narrative Procedure Note [facility] - 08/18/2017 12:00 AM CST Anticoagulation [facility] Name: CRISTIAN BLEDSOE : 1945 DOS: [...] by:Tiffani Carrero RN Aug 18 2017 6:00PM PAINT DEPARTMENT SUPERVISOR [facility] OTHER * ANTICOAGULATION (07/09/2017) Narrative Procedure Note [facility] - 07/09/2017 12:00 AM CST Anticoagulation [facility] Name: CRISTIAN BLEDSOE : 1945 DOS: [...] by:Tiffani Carrero RN Jul 09 2017 11:28AM PAINT DEPARTMENT SUPERVISOR [facility] OTHER * ANTICOAGULATION (06/16/2017) Narrative Procedure Note [facility] - 06/16/2017 12:00 AM CST Anticoagulation Clinic [facility] Name: CRISTIAN BLEDSOE : 1945 DOS: 06/16/2017 This is a patient of Dr. Berry. He is here today for an anticoagulationassessment and INR check for a diagnosis of atrial fibrillation. He statesthat he has been feeling well. Patient denies any recent medicationchanges. He reports that he needs weekly INR checks per Dr. Patrick [facility] Card[facility] in preparation for taking [...] by:Tiffani Carrero RN Jun 16 2017 4:18PM PAINT DEPARTMENT SUPERVISOR [facility] OTHER * ANTICOAGULATION (06/09/2017) Narrative Procedure Note [facility] - 06/09/2017 12:00 AM CST Anticoagulation Clinic [facility] Name: CRISTIAN BLEDSOE : 1945 DOS: 06/09/2017 This is a patient of Dr. Berry. He is here today for an anticoagulationassessment and INR check for a diagnosis of atrial fibrillation. He statesthat he has been feeling well. Patient denies any recent medicationchanges. He reports that he needs weekly INR checks per Dr. Patrick [facility] Card[facility] in preparation for taking [...] by:Tiffani Carrero RN Jun 09 2017 3:40PM PAINT DEPARTMENT SUPERVISOR Genericprovider [facility] OTHER * ANTICOAGULATION (06/02/2017) Narrative Procedure Note [facility], [facility] - 06/02/2017 12:00 AM CST Anticoagulation Clinic [facility] Name: CRISTIAN BLEDSOE : 1945 DOS: 06/02/2017 This is a patient of Dr. Berry. He is here today for an anticoagulationassessment and INR check for a diagnosis of atrial fibrillation. He statesthat he has been feeling well. Patient denies any recent medicationchanges. He reports that he will need weekly INR checks per Dr. Valencia [facility] in preparation for taking dofetilide [...] by:Tiffani Carrero RN Jun 02 2017 9:39AM PAINT DEPARTMENT SUPERVISOR AMENDMENTS: 1. current INR and Coumadin dosing. Electronically signed by:Tiffani Carrero RN Jun 09 2017 3:41PM PAINT DEPARTMENT SUPERVISOR [facility] OTHER * ANTICOAGULATION (05/26/2017) Narrative Procedure Note [facility], MICHELLEPROVIDER - 05/26/2017 12:00 AM CST Anticoagulation [facility] Name: CRISTIAN BLEDSOE : 1945 DOS: 05/26/2017 This is a patient of Dr. Berry. He is here today for an anticoagulationassessment and INR check for a diagnosis of atrial fibrillation. He statesthat he has been feeling well. Patient denies any recent medicationchanges. He reports that he will need weekly INR checks per Dr. Valencia [facility] in preparation for taking dofetilide [...] by:Tiffani Carrero RN May 26 2017 9:42AM PAINT DEPARTMENT SUPERVISOR [facility] OTHER * [facility]TICO[facility]ULATION (05/19/2017) Narrative [facility] 05/19/2017 12:00 AM CST Anticoagulation [facility] Name: CRISTIAN BLEDSOE : 1945 DOS: 05/19/2017 This is a patient of Dr. Berry. He is here today for an anticoagulationassessment and INR check for a diagnosis of atrial fibrillation. He statesthat he has been feeling well. Patient denies any recent medicationchanges. He reports that he will need weekly INR checks per Dr. Valencia [facility] in preparation for taking dofetilide [...] by:Tiffani Carrero RN May 19 2017 3:13PM PAINT DEPARTMENT SUPERVISOR Genericprovider [facility] OTHER * ANTICOAGULATION (05/14/2017) Narrative Procedure Note [facility], GENER[facility]PROVID[facility] - 05/14/2017 12:00 AM CDT Email communication received from patient today: ALLAN Vera, RN [facility] (direct phone) [phone] Per our phone conversation of yesterday afternoon, I will be having aninitiation of Tikosyn (Dofetilide) at [facility] beginning June 21. To prepare for this, my icicle machine operator, Dr. Serra, has requested INR lab reports demonstrating 4 to 5 weeks ofINR levels between 2.5 and 3 prior to the initiation of Tikosyn. Would you please fax my INR lab reports for the month of May Oneil, Dr. Patrick? s nurse, at (fax) [phone]? The phone numberfor Dr. Patrick is [phone]. As we discussed, I will come in for INR testing each Wednesday morning at9:30 AM to meet this requirement. Thank you, Anurag Premapura Electronically signed by:Tiffani Carrero RN May 14 2017 9:46AM PAINT DEPARTMENT SUPERVISOR [facility] OTHER * ANTICOAGULATION (05/10/2017) Narrative Procedure Note [facility] - 05/10/2017 12:00 AM CDT Anticoagulation [facility] Name: CRISTIAN BLEDSOE : 1945 DOS: 05/10/2017 This is a patient of Dr. Berry. He is here today for an anticoagulationassessment and INR check for a diagnosis of atrial fibrillation. He statesthat he has been feeling well. Patient denies any recent medicationchanges. He reports that he will need weekly INR checks per Dr. Valencia [facility] in preparation for taking dofetilide [...] by:Tiffani Carrero RN May 10 2017 3:11PM PAINT DEPARTMENT SUPERVISOR [facility] OTHER * ANTICOAGULATION (04/06/2017) Narrative Procedure Note [facility] - 04/06/2017 12:00 AM CDT Anticoagulation [facility] Name: CRISTIAN BLEDSOE : 1945 DOS: [...] by:Tiffani Carrero RN Apr 06 2017 12:37PM PAINT DEPARTMENT SUPERVISOR [facility] OTHER * ANTICOAGULATION (03/03/2017) Narrative Procedure Note [facility] - 03/03/2017 12:00 AM CDT Anticoagulation [facility] Name: CRISTIAN BLEDSOE : 1945 DOS: [...] changes. He willhave INR checked in the [place] lab prior to his appointment with . Patient verbalized understanding. Electronically signed by:Tiffani Carrero RN Mar 03 2017 12:02PM PAINT DEPARTMENT SUPERVISOR [facility] OTHER * ANTICOAGULATION (02/03/2017) Narrative Procedure Note [facility] - 02/03/2017 12:00 AM CDT Anticoagulation [facility] Name: CRISTIAN BLEDSOE : 1945 DOS: [...] by:Tiffani Carrero RN Feb 03 2017 10:11AM PAINT DEPARTMENT SUPERVISOR Genericprovider [facility] OTHER documented in this encounter Visit Diagnoses Not on filedocumented in this encounter Care Teams Licensed Home Inspector Relationship Specialty Start Date End Date Casey Berry II, DO PCP - General 11/22/06 08/17/19 Stephani Aleman MD PCP - General Family Medicine 08/18/19 09/16/20 Bianka Loera CNP [address] [place] [address] [address] [place] [address] PCP - General Nurse Practitioner Family 09/17/2001/10 Desiree Patrick MD [address] [place] [address] PCP - General Electrophysiology 02/23/22 03/09/22 Desiree Patrick MD [address] [place] [address] 08/09/17 Farrah Nicole APRN,DINKEY LOCOMOTIVE OPERATOR [address] [phone] 08/09/17 Bry Echevarria MD [address] [phone] 08/09/17 Casey Berry II, DO 08/09/17 Shruti Vergara RN RN Registered Nurse 08/27/20 documented as of this encounter Additional Source Comments PLEASE NOTE: Replies to this message will not be received.[facility] and [facility]
--- OUTSIDE RECORDS SUMMARY | 2024-04-21 13:18 | XMS_ITS | Encounter Summary ---
Author Organization [employer] Address [address] [place] [address] Care Team Providers Care Specialist Physician Name Role Phone Jamal CARLISLE DO, Robert William Primary Care Provide r Unavailable Desiree Patrick MD Unavailable Farrah Nicole APRN,HEADWAITRESS Unavailable Bry Echevarria MD Unavailable Jamal CARLISLE DO, Robert William Unavailable Unav Stephani Diaz MD Primary Care Provider [phone] Shruti Vergara RN Unavailable Unavailable Bianka Loera CNP Primary Care Provider Desiree Patrick MD Primary Care P rovider Encounter Details Date Type Department Care Team (Late st Contact Info) Description 10/17/[address] [facility] Family Medicine [address] [place] [id number] Social History Tobacco Use Types Packs/Day Years [...] do you have serious difficulty hearing? Yes-slightly KIVALINA 10/17/2016 Are you blind or do you [...] as of this encounter Nursing Notes * [facility], GENER[facility]OVID[facility] - 10/17/2016 12:00 AM CDT Rohan presented to Urgent Care with complaint of feeling like his heart is racing, he can feel it pounding and a tighness in his chest occurs when this happens. He was seen at [facility] 10 days ago for an episode similar. [...] to be evaluatedin the Emergency Room at [facility]. Patient and his elected to go by private car with patients driving. Electronically signed by:Tammy Coronado RN Oct 17 2016 2:09PM HAT PRESSER AMENDMENTS: 1. Patient declines shortness of breath, radiating neck pain, shoulderblade pain or sternal pain. Electronically signed by:Tammy Coronado RN Oct 17 2016 2:14PM HAT PRESSER documented in this encounter Plan of Treatment Not on file documented as of this encounter Visit Diagnoses Not on filedocumented in this encounter Care Teams Specialist Physician Relationship Specialty Start Date End Date Casey Berry II, DO PCP - General 11/22/06 08/17/19 Stephani Aleman MD PCP - General Family Medicine 08/18/19 09/16/20 Bianka Loera CNP [address] [place] [address] PCP - General Nurse Practitioner Family 09/17/2001/10 Desiree Patrick MD [address] [place] [facility] [place] [address] PCP - General Electrophysiology 02/23/22 03/09/22 Desiree Patrick MD [address] [place] [facility] [place] [address] 08/09/17 Farrah Nicole APRN,HEADWAITRESS [address] [place] [facility] [place] [address] 08/09/17 Bry Echevarria MD [address] [place] [phone] 08/09/17 Casey Berry II, DO 08/09/17 Shruti Vergara, RN RN Registered Nurse 08/27/20 documented as of this encounter Additional Source Comments PLEASE NOTE: Replies to this message will not be received.[facility] and [facility]
--- OUTSIDE RECORDS SUMMARY | 2024-04-21 13:18 | XMS_ITS | Encounter Summary ---
Author Organization [facility] Address [address] [place] [address] Care Team Providers Care Hod Carrier Name Role Phone Jamal CARLISLE DO, Robert William Primary Care Provide r Unavailable Desiree Patrick MD Unavailable Farrah Nicole APRN,CHILLER TECHNICIAN Unavailable Bry Echevarria MD Unavailable [phone] Jamal CARLISLE DO, Robert William Unavailable Unav Stephani Diaz MD Primary Care Provider Shruti Vergara RN Unavailable Unavailable Bianka Loera CNP Primary Care Provider Desiree Patrick MD Primary Care P rovider Encounter Details Date Type Department Care Team (Late st Contact Info) Description 12/31/2016 Historical Conversion [facility] Family Medicine [address] [facility] [place] [address] Desiree Rubi PAC [address] [place] [address] Social History Tobacco Use Types [...] CST UROLOGY CRISTIAN LADI : 1945 HX: [id number] DOS: 08/31/2017 HISTORY OF PRESENT ILLNESS: Anurag [...] 2% of the specimen. He also had [place] 7 cancer at the left mid-prostate involving 5% of the tissue, the right mid-prostate had [place] 7 cancer again involving 20% of the tissue in that area. Also at the right apex he had [place] 7 cancer involving 5%. He was treated [...] by:Desiree Rubi PA-C Sep 02 2017 5:01PM ACID BATH MIXER * Desiree Rubi - 03/30/2017 12:00 AM CDT UROLOGY CRISTIAN BLEDSOE : 1945 HX: [id number] DOS: 03/30/2017 HISTORY OF PRESENT ILLNESS: 71-year-old male who presents to the Urology clinic today. The patient was previously noted to have a rubbery nodularity on both sides of the prostate. He had PSA velocity change. In August he had a PCA3 test that came back positive. He had a biopsy October 2016. Pathology showed a White [place] 6 prostate cancer at the left base of the prostate involving 2% of thespecimen. He had a Curt 7 cancer at the left mid prostate involving less than 5% of the tissue. The right mid prostate he had [place] 7 cancer involving 20% of the tissue in that area. [facility] Curt [facility] [...] treatment. He has adenocarcinoma of the prostate. [place] 7 cancer. He had beenon Lupron for [...] Mare Rubi P.A.-C./ cc: Dr. Moon Maloney [facility] Radha [facility] Radiation Therapy Dept Dr. Casey Berry [facility] Radha Electronically signed by:Desiree Rubi PA-C Apr 02 2017 1:20PM ACID BATH MIXER * Desiree Rubi - 12/31/2016 12:00 AM CDT UROLOGY CRISTIAN BLEDSOE : 1945 HX: [id number] DOS: 12/31/2016 HISTORY OF PRESENT ILLNESS: 71-year-old male who presents to the Urology clinic today. Hehad a velocity change with his PSA. On his prostate exam he had a rubbery nodularity on both sides.It was a symmetrical prostate. His PSA was monitored for a little while. In August he had a LANDSCAPE CREW LEADER 3test and that came back positive. He was brought back for a prostate biopsy October 23, 2016. His pathology showed Curt 6 cancer at the left base of the prostate involving 2% of the specimen. He hadGleason 7 cancer at the left mid prostate involving less than 5% of the tissue. The right mid prostate he had a [place] 7 cancer involving 20% of the specimen [...] Lupron. UA today is normal. ASSESSMENT: 1. [place] 7 adenocarcinoma of the prostate. He will [...] Rubi P.A.-C./anna 28 cc: Dr. Moon Maloney [facility] Radha [facility] Dr. Casey Berry [facility] Radha Electronically signed by:Desiree Rubi PA-C Jan 06 2017 4:31PM ACID BATH MIXER Author documented in this encounter Plan of Treatment Not on file documented as of this encounter Visit Diagnoses Not on filedocumented in this encounter Care Teams Hod Carrier Relationship Specialty Start Date End Date Casey Berry II, DO PCP - General 11/22/06 08/17/19 Stephani Aleman MD PCP - General Family Medicine 08/18/19 09/16/20 Bianka Loera CNP [address] [place] [phone] PCP - General Nurse Practitioner Family 09/17/20 712/31 Desiree Patrick MD [address] [place] [address] PCP - General Electrophysiology 02/23/22 03/09/22 Desiree Patrick MD [address] [place] [address] 08/09/17 Farrah Nicole APRN,CHILLER TECHNICIAN [address] [place] [address] 08/09/17 Bry Echevarria MD [address] [place] [address] 08/09/17 Casey Berry II, DO 08/09/17 Shurti Vergara, RN RN Registered Nurse 08/27/20 documented as of this encounter Additional Source Comments PLEASE NOTE: Replies to this message will not be received.[facility] and [facility]
--- OUTSIDE RECORDS SUMMARY | 2024-04-21 13:18 | XMS_ITS | Encounter Summary ---
Author Organization [employer] Address [address] [place] [address] Care Team Providers Care Director Of Student Aid Name Role Phone Jamal CARLISLE DO, Robert William Primary Care Provide r Unavailable Desiree Patrick MD Unavailable Farrah Nicole APRN,CENTRAL OFFICE OPERATOR Unavailable [phone] Bry Echevarria MD Unavailable Jamal CARLISLE DO, Robert William Unavailable Unav Stephani Diaz MD Primary Care Provider Shruti Vergara RN Unavailable Unavailable Bianka Loera CNP Primary Care Provider Desiree Patrick MD Primary Care P rovider Encounter Details Date Type Department Care Team (Late st Contact Info) Description 07/01/2017 Historical Conversion [facility] [address] [facility] [place] [place] [address] Bry Echevarria MD [address] [place] [address] Social History Tobacco Use Types [...] ap pointment with the anticoagulation clinic in [facility] on July 09, 2017.Follow-[facility] with his [place] [facility] and updated [facility]. The medicine list was reconciled. History of Present Illness Mr Carroll is a 71-year-old white male who comes to my on-call internal medicine clinic today forfollow-up of her recent hospitalization. His primary care physician is Dr. Berry. The patient was hospitalized in [place] last week and he underwent a cardioversion with the dofetilide. He is now onthat medication twice a day. His INR was slightly elevated at 3.2 when he was up in [place]. He was told to come in today for an INR check. He has not had any problems with bleeding. We did check his anticoagulation and his INR was therapeutic at 2.8. He will follow-up with the anticoagulation clinic in [facility] in 8 days and he will have [...] in atrial fibrillation.He is following up with [place] cardiology in 1 month. Allergies 1. Penicillins 2. Sulfa Drugs Vitals Vital Signs Recorded: 54Hew1097 02:41PM Systolic 136, LUE, Sitting Diastolic 70, [...] questions appropriately. Results/Data Results, Free Text - [facility]: is therapeutic at 2.8. Signatures Electronically signed by : Bry Echevarria M.D.; Jul 01 2017 3:31PM SEED POTATO ARRANGER (Author) documented in this encounter Plan of Treatment Not on file documented as of this encounter Visit Diagnoses Not on filedocumented in this encounter Care Teams Director Of Student Aid Relationship Specialty Start Date End Date Casey Berry II, DO PCP - General 11/22/06 08/17/19 Stephani Aleman MD PCP - General Family Medicine 08/18/19 09/16/20 Bianka Loera, RADIOLOGY CT TECHNOLOGIST [address] [place] [phone] PCP - General Nurse Practitioner Family 09/17/20 712/31 Desiree Patrick MD [address] [place] [address] PCP - General Electrophysiology 02/23/22 03/09/22 Desiree Patrick MD [address] [place] [address] 08/09/17 Farrah Nicole, CHAIR FINISHER,[facility] [address] [place] [address] 08/09/17 Bry Echevarria MD [address] [place] [address] [place] [id number] 08/09/17 Casey Berry II, DO 08/09/17 Shruti Vergara, RN RN Registered Nurse 08/27/20 documented as of this encounter Additional Source Comments PLEASE NOTE: Replies to this message will not be received.[facility] and [facility]
--- OUTSIDE RECORDS SUMMARY | 2024-04-21 13:19 | XMS_ITS | Encounter Summary ---
Author Organization [employer] [facility] [employer] [facility] Address [address] [place] [address] Care Team Providers Care Medical Investigator Name Role Phone Jamal CARLISLE DO, Robert William Primary Care Provide r Unavailable Desiree Patrick MD Unavailable Farrah Nicole APRN,JR. SYSTEMS ADMINISTRATOR Unavailable Bry Echevarria MD Unavailable [phone] Jamal CARLISLE DO, Robert William Unavailable Unav Stephani Diaz MD Primary Care Provider Shruti Vergara RN Unavailable Unavailable Bianka Loera CNP Primary Care Provider [phone] Desiree Patrick MD Primary Care P rovider Encounter Details Date Type Department Care Team (Late st Contact Info) Description 01/03/2014 Historical Conversion [facility] Family Medicine [address] [place] [address] Errol Berry II, DO Social History Tobacco [...] AM CDT CRISTIAN BLEDSOE : 1945 HX: [id number] DOS: 01/03/2014 CHIEF COMPLAINT: Back pain. HISTORY [...] by:ERROL BERRY D.O. Jan 17 2014 7:34AM ENVIRONMENTAL TEST TECHNICIAN documented in this encounter Plan of Treatment Not on file documented as of this encounter Visit Diagnoses Not on filedocumented in this encounter Care Teams Medical Investigator Relationship Specialty Start Date End Date Errol Berry II, DO PCP - General 11/22/06 08/17/19 Stephani Aleman MD PCP - General Family Medicine 08/18/19 09/16/20 Bianka Loera GRAPE PICKER [address] [place] [address] PCP - General Nurse Practitioner Family 09/17/20 7/12/31 Desiree Patrick MD [address] [place] [address] PCP - General Electrophysiology 02/23/22 03/09/22 Desiree Patrick MD [address] [place] [address] 08/09/17 Farrah Nicole APRN,JR. SYSTEMS ADMINISTRATOR [address] [place] [address] 08/09/17 Bry Echevarria MD [facility] [place] [address] 08/09/17 Errol Berry II, DO 08/09/17 Shruti Vergara RN RN Registered Nurse 08/27/20 documented as of this encounter Additional Source Comments PLEASE NOTE: Replies to this message will not be received.[facility] and [facility]
--- OUTSIDE RECORDS SUMMARY | 2024-04-21 13:19 | XMS_ITS | Encounter Summary ---
Author Organization [employer] Address [address] [place] [address] Care Team Providers Care Blocking Machine Operator Second Name Role Phone Jamal CARLISLE DO, Robert William Primary Care Provide r Unavailable Desiree Patrick MD Unavailable Farrah Nicole APRN,RAILROAD FIRER Unavailable Bry Echevarria MD Unavailable Jamal CARLISLE DO, Robert William Unavailable Unav Stephani Diaz MD Primary Care Provider Shruti Vergara RN Unavailable Unavailable Bianka Loera CNP Primary Care Provider [phone] Desiree Patrick MD Primary Care P rovider Encounter Details Date Type Department Care Team (Late st Contact Info) Description 08/28/2015 Historical Conversion [facility] Family Medicine [address] [place] [address] Casey Berry II, DO Social History Tobacco Use Types Packs/Day Years Used Date Smoking Tobacco: Never Assessed Sex and Gender Information Value Date Recorded Sex Assigned at Not on file Gender Identity Not on file Sexual Orientation Not on file documented as of this encounter Last Filed Vital Signs Vital Sign Reading Time Taken Comments Blood Pressure 134/90 08/28/2015 12:00 AM MACHINE SHORTHAND REPORTER Pulse - - Temperature - - Respiratory Rate - - Oxygen Saturation - - Inhaled Oxygen Concentration - - Weight 90.2 kg (198 lb 13.7 oz) 016 12:00 AM MACHINE SHORTHAND REPORTER Height 186 cm (6' 1.23) 08/28/2015 12: 00 AM MACHINE SHORTHAND REPORTER Body Mass Index 26.07 08/28/2015 12:00 AM MACHINE SHORTHAND REPORTER documented in this encounter Progress Notes [...] healthy by no longer smoking.; Status:Complete; Done: 61Qbw9433 Reason For Visit Go over CT results. [...] 1 TABLET BY MOUTH ONCE DAILY; Therapy: 66Sxz3456 to (Evaluate:07Qxn3107) Requested for: 40Ada0185; Last Rx:27Djs5060 Ordered 2. Metoclopramide HCl - 5 MG Oral Tablet; TAKE 1 TABLET BY MOUTH THREE TIMES DAILY WITH MEALS; Therapy: 10Sep2014 to (Evaluate:86Dwr1678) Requested for: 55Ojg2873; Last Rx:84Jep9246 Ordered 3. Metoprolol Tartrate 25 MG Oral Tablet; 1/2 to 1 prn a fib Requested for: 69Inn2589; Last Rx:91Arm5359 Ordered 4. Tylenol Extra Strength 500 MG Oral Tablet; Therapy: (Recorded:74Uqh4382) to Recorded 5. Warfarin Sodium 5 MG Oral Tablet; Take as directed by ACC; Therapy: 83Yuf8145 to (Evaluate:15May2017) Requested for: 20May2016 Recorded Allergies 1. Penicillins 2. Sulfa Drugs Vitals Recorded: 93Hyb1403 10:00AM Systolic 115, RUE, Sitting Diastolic 76, RUE, Sitting Heart Rate 65 Respiration 16 Temperature 97.6 F, Forehead Weight 91.5 kg BMI Calculated 26.45 BSA Calculated 2.16 2+ Falls or 1 Fall with injury in last year? No O2 Saturation 96 Signatures Casey Berry II, D.OWilliam/pj-29 Electronically signed by : Casey Berry DO; Jul 09 2016 1:56PM MACHINE SHORTHAND REPORTER * Casey Beryr II, DO - 03/10/2016 12:00 AM CDT [...] use sparingly qid; Therapy: 18Nov2015 to (Last Rx:09Csg8648) Requested for: 90Cae4126 Ordered 2. Lisinopril 10 MG Oral Tablet; TAKE 1 TABLET BY MOUTH ONCE DAILY; Therapy: 72Ubt3080 to (Evaluate:56Zuo3535) Requested for: 12Jau0381; Last Rx:37Mgv9814 Ordered 3. Metoclopramide HCl - 5 MG Oral Tablet; TAKE 1 TABLET BY MOUTH THREE TIMES DAILY WITH MEALS; Therapy: 10Sep2014 to (Evaluate:83Eyw6821) Requested for: 67Igt3222; Last Rx:37Jzg5652 Ordered 4. Tylenol Extra Strength 500 MG Oral Tablet; Therapy: (Recorded:34Ddm8583) to Recorded 5. Warfarin Sodium 5 MG Oral Tablet; Take as directed by ACC; Therapy: 69Mou4367 to (Evaluate:60Gns8319) Requested for: 19Feb2016; Last Rx:19Feb2016 Ordered Allergies [...] Vital Signs [Data Includes: Current Encounter] Recorded: 21Cgf3968 10:06AM Blood Pressure 124 / 71 Heart [...] Casey Berry DO; Apr 02 2016 8:50AM MACHINE SHORTHAND REPORTER * Casey Berry II, DO - [...] use sparingly qid; Therapy: 18Nov2015 to (Last Rx:21Oel8099) Requested for: 50Upb9657 Ordered 2. Lisinopril 10 MG Oral Tablet; TAKE 1 TABLET BY MOUTH ONCE DAILY; Therapy: 29Gal4841 to (Evaluate:63Zbk4646) Requested for: 15Rez5567; Last Rx:42Poj8756 Ordered 3. Metoclopramide HCl - 5 MG Oral Tablet; TAKE 1 TABLET BY MOUTH THREE TIMES DAILY WITH MEALS; Therapy: 10Sep2014 to (Evaluate:91Qns2394) Requested for: 88Fca9704; Last Rx:47Ijk9777 Ordered 4. Tylenol Extra Strength 500 MG Oral Tablet; Therapy: (Recorded:18Nov2015) to Recorded 5. Xarelto 15 MG Oral Tablet; TAKE 1 TABLET DAILY Requested for: 08Jan2016; Last Rx:08Jan2016 Ordered Allergies 1. Penicillins 2. Sulfa Drugs Social History 1. Former smoker: 0 - 10 pack years (V15.82) (Z87.891) Vitals Vital Signs [Data Includes: Current Encounter] Recorded: 26Vms7505 10:31AM Blood Pressure 139 / 83 Heart [...] Casey Berry DO; Feb 11 2016 7:47AM MACHINE SHORTHAND REPORTER * Casey Berry II, DO - 12/11/2015 12:00 AM CDT Chief Complaint/Reason for Visit f/up ct History of Present Illness This is a 70-year-old male who recently underwent a stress test. The stress test showed no major abnormality, however, it was suggested of an aneurysm. 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 [place] that the CT scan would be a [...] 1 TABLET BY MOUTH ONCE DAILY; Therapy: 22Twl3459 to (Evaluate:35Yfi8559) Requested for: 46Duo1255; Last Rx:97Jgt8259 Ordered 3. Metoclopramide HCl - 5 MG Oral Tablet; TAKE 1 TABLET BY MOUTH THREE TIMES DAILY WITH MEALS; Therapy: 10Sep2014 to (Evaluate:14Cuy5985) Requested for: 03Dec2015; Last Rx:59Umj3335 Ordered 4. Tylenol Extra Strength 500 MG [...] Casey Berry DO; Dec 30 2015 8:19AM MACHINE SHORTHAND REPORTER * Casey Berry II, DO - 11/18/2015 12:00 AM CDT Chief Complaint/Reason for Visit ER follow up History of Present Illness This is a 69-year-old male who has a long history of paroxysmal tachycardia. He recently had an episode of paroxysmal tachycardia. He went in to the ER in [place] and found that he had a flutter [...] INHALE ONE SPRAY TWICE DAILY PRN; Therapy: 59Pwz9445 to Requested for: 03Jan2014 Recorded 2. Lisinopril 10 MG Oral Tablet; TAKE 1 TABLET BY MOUTH ONCE DAILY; Therapy: 66Hch5416 to (Evaluate:65Vbd9643) Requested for: 39Fjw2144; Last Rx:26Olo8152 Ordered 3. Metoclopramide HCl - 5 MG Oral Tablet; TAKE 1 TABLET BY MOUTH THRE E TIMES DAILY WITH MEALS; Therapy: 10Sep2014 to (Evaluate:75Vkg4440) Requested for: 94Ffg1075; Last Rx:74Vuj1285 Ordered 4. Metoprolol Tartrate 25 MG Oral [...] Casey Berry DO; Nov 26 2015 8:06AM MACHINE SHORTHAND REPORTER documented in this encounter H&P Notes [...] INHALE ONE SPRAY TWICE DAILY PRN; Therapy: 02Vvf5533 to Requested for: 03Jan2014 Recorded 3. Lisinopril 10 MG Oral Tablet; TAKE 1 TABLET BY MOUTH ONCE DAILY; Therapy: 18Axj3809 to (Evaluate:32Occ5088) Requested for: 27Qln8952; Last Rx:77Jfi9067 Ordered 4. Metoclopramide HCl - 5 MG Oral Tablet; TAKE 1 TABLET BY MOUTH THRE E TIMES DAILY WITH MEALS; Therapy: 10Sep2014 to (Evaluate:81Pzr9516) Requested for: 70Sva6645; Last Rx:17Wpd4186 Ordered 5. Vitamin D3 1000 UNIT Oral [...] healthy by no longer smoking.; Status:Complete; Done: 31Smt0000 1.Prevnar shot. 2.CBC, vitamin D, PSA, comp, and lipid. 3.Did discuss with patient about his foot. Signatures Casey Berry II, D.OWilliam/jaj-08 Electronically signed by : Casey Berry DO; Sep 19 2015 8:13AM MACHINE SHORTHAND REPORTER documented in this encounter Procedure Notes * Casey Berry II, DO - 11/26/2015 12:00 AM CDTAssociated Order(s): NUCLEAR MEDICINE NUCLEAR MEDICINE CRISTIAN BLEDSOE : 1945 HX: [id number] DOS: 11/26/2015 Lexiscan portion of Lexiscan Cardiolite. [...] by:Casey Berry DO Dec 03 2015 7:45AM MACHINE SHORTHAND REPORTER documented in this encounter Miscellaneous Notes [...] signed by:DEYANIRA FRANCOIS Sep 09 2015 11:25AM MACHINE SHORTHAND REPORTER documented in this encounter Plan of Treatment Not on file documented as of this encounter Procedures Procedure Name Priority Date/Time Associated Diagnosis Comments NUCLEAR MEDICINE 11/26/2015 documented in this encounter Results * NUCLEAR MEDICINE (11/26/2015) Anatomical Region Laterality Modality Other Narrative Procedure Note Casey Berry II, DO - 11/26/2015 12:00 AM CDT NUCLEAR MEDICINE CRISTIAN BLEDSOE : 1945 HX: [id number] DOS: 11/26/2015 Lexiscan portion of Lexiscan Cardiolite. BASELINE EKG: Shows no abnormality of note. PROTOCOL: Patient was given Lexiscan and Cardiolite. He had no majorcomplaints. EKG CHANGES NOTED DURING TEST: EKG showed no changes. IMPRESSION: 1. Normal Lexiscan portion of Lexiscan Cardiolite. RECOMMENDATIONS: We will await radiologic portion of test. Casey Berry II, D.O./jaj-23 Electronically signed by:Casey Berry DO Dec 03 2015 7:45AM MACHINE SHORTHAND REPORTER Casey Berry II, DO RAD NUCLEAR M EDICINE documented in this encounter Visit Diagnoses Not on filedocumented in this encounter Care Teams Blocking Machine Operator Second Relationship Specialty Start Date End Date Casey Berry II, DO PCP - General 11/22/06 08/17/19 Stephani Aleman MD PCP - General Family Medicine 08/18/19 09/16/20 Bianka Loera SEALING MACHINE OPERATOR [address] [facility] [address] [place] [address] PCP - General Nurse Practitioner Family 09/17/20 712/31 Desiree Patrick MD [address] [place] [address] PCP - General Electrophysiology 02/23/22 03/09/22 [place] [address] [place] [address] 08/09/17 Farrah Nicole APRN,ALEX [address] [place] [address] 08/09/17 Bry Echevarria MD [address] [place] [address] 08/09/17 Casey Berry II, DO 08/09/17 Shruti Vergara RN RN Registered Nurse 08/27/20 documented as of this encounter Additional Source Comments PLEASE NOTE: Replies to this message will not be received.[facility] and [facility]
--- OUTSIDE RECORDS SUMMARY | 2024-04-21 13:19 | XMS_ITS | Encounter Summary ---
Author Organization [facility] Address [address] [place] [address] Care Team Providers Care Gum Worker Name Role Phone Jamal CARLISLE DO, Robert William Primary Care Provide r Unavailable Desiree Patrick MD Unavailable Farrah Nicole APRN,ALEX Unavailable [phone] Bry Echevarria MD Unavailable [phone] Jamal CARLISLE DO, Robert William Unavailable Unav ailable Stephani Aleman MD Primary Care Provider Shruti Vergara RN Unavailable Unavailable Bianka Loera CNP Primary Care Provider Desiree Patrick MD Primary Care P rovider Encounter Details Date Type Department Care Team (Late st Contact Info) Description 12/01/2006 HIM User Experience Team Lead Generic User Experience Team Lead [address] [place] [address] Social History Tobacco Use Types [...] on filedocumented in this encounter Care Teams Gum Worker Relationship Specialty Start Date End Date Casey Berry II, DO PCP - General 11/22/06 08/17/19 Stephani Aleman MD PCP - General Family Medicine 08/18/19 09/16/20 Bianka Loera CNP [address] [place] [address] PCP - General Nurse Practitioner Family 09/17/2001/10 Desiree Patrick MD [address] [facility] [address] PCP - General Electrophysiology 02/23/22 03/09/22 Desiree Patrick MD [address] [place] [address] 08/09/17 Farrah Nicole APRN,ACADEMIC SERVICES PROFESSIONAL [address] [place] [address] 08/09/17 Bry Echevarria MD [address] [place] [address] 08/09/17 Casey Berry II, DO 08/09/17 Shruti Vergara, RN RN Registered Nurse 08/27/20 documented as of this encounter Additional Source Comments PLEASE NOTE: Replies to this message will not be received.[facility] and [facility]
--- OUTSIDE RECORDS SUMMARY | 2024-04-21 13:19 | XMS_ITS | Encounter Summary ---
Author Organization [facility] Address [address] [place] [address] Care Team Providers Care Director Wholesale Name Role Phone Unavailable Primary Care Provider Unavailabl e Reason for Referral * MRI/CAT/PET Scan (Routine) - Closed Specialty Diagnoses / Procedures Referred By Malinda wan Referred To Contact Radiology Diagnoses Parkinsonism Unspecified (HCC) Procedures MR Brain without and with IV Contrast Vic Mae M.D. [address] [address] [facility] Region Referral ID Status Reason Start Date Expiration Date Visits Re quested Visits Authorized [id number] Closed 02/23/2024 02/22/2025 1 1 Reason for Visit * MRI/CAT/PET Scan (Routine) - Closed Specialty Diagnoses / Procedures Referred By Malinda wan Referred To Contact Radiology Diagnoses Parkinsonism Unspecified (HCC) Procedures MR Brain without and with IV Contrast Vic Mae M.D. [address] [address] [facility] Region Referral ID Status Reason Start Date Expiration Date Visits Re quested Visits Authorized [id number] Closed 02/23/2024 02/22/2025 1 1 Encounter Details Date Type Department Care Team (Latest Contact Info) Description 02/24/2024 1:38 PM CDT - 02/24/2024 11:59 PM CDT Hospital Encounter Department of Radiology in [place], [place] [address] [place] [address] Vic Mae M.D. [address] [place] [address] Parkinsonism Unspecified (HCC) Discharge Disposition: [...] times a day. 675 tablet 3 04/15/2023 DME CPAP BiPAP autoSV Advanced or VPAP [...]
--- OUTSIDE RECORDS SUMMARY | 2024-04-21 13:19 | XMS_ITS ---
Author Organization [facility] Address [address] [place] [address] Care Team Providers Care Planning Supervisor Name Role Phone Unavailable Unavailable Unavailable Surgery Details Not on file Complications Check Surgery Details section. Procedure Estimated Blood Loss Check Surgery Details section. Procedure Findings Check Surgery Details section. Procedure Specimens Taken Check Surgery Details section.
--- OUTSIDE RECORDS SUMMARY | 2024-04-21 13:19 | XMS_ITS | Encounter Summary ---
Author Organization [employer] Address [address] [place] [address] Care Team Providers Care Shipping Technician Name Role Phone Jamal CARLISLE DO, Robert William Primary Care Provide r Unavailable Desiree Patrick MD Unavailable Farrah Nicole APRN,SCIENCE TUTOR Unavailable [phone] Bry Echevarria MD Unavailable Jamal CARLISLE DO, Robert William Unavailable Unav Stephani Diaz MD Primary Care Provider [phone] Shruti Vergara RN Unavailable Unavailable Bianka Loera CNP Primary Care Provider [phone] Desiree Patrick MD Primary Care P rovider Encounter Details Date Type Department Care Team (Late st Contact Info) Description 01/31/2016 Historical Conversion [facility] Family Medicine [address] [place] [id number] Social History Tobacco Use Types Packs/Day Years [...] of this encounter Procedure Notes * [facility] - 01/14/2017 12:00 AM CDTAssociated Order(s): ANTICOAGULATION [facility] Name: CRISTIAN BLEDSOE : 1945 DOS: [...] by:Tiffani Carrero RN Jan 14 2017 11:11AM IT INVESTMENT/PORTFOLIO MANAGER * [facility] MICHELLEPROVIBRANDO - 12/23/2016 12:00 AM CDTAssociated Order(s): ANTICOAGULATION [facility] Name: CRISTIAN BLEDSOE : 1945 DOS: [...] by:Tiffani Carrero RN Dec 23 2016 11:30AM IT INVESTMENT/PORTFOLIO MANAGER * [facility], GENERICPROVIDER - 12/02/2016 12:00 AM CDTAssociated Order(s): ANTICOAGULATION [facility] Name: CRISTIAN LBEDSOE : 1945 DOS: 12/02/2016 This is a [...] by:Tiffani Carrero RN Dec 02 2016 4:10PM IT INVESTMENT/PORTFOLIO MANAGER * [facility], GENERICPROVIDER - 11/17/2016 12:00 AM CDTAssociated Order(s): ANTICOAGULATION [facility] Name: CRISTIAN BLEDSOE : 1945 DOS: [...] has an appointment next week with an health services information specialist to discuss a possible ablation. Patient denies any medication changes. INR tested today is therapeutic at 2.7 with the recommended range of 2.0 to 3.0. Patient will continue Coumadin at 5 mg daily with an INR recheck in two weeks. Patient verbalizes understanding. Electronically signed by:Tiffani Carrero RN Nov 17 2016 9:36AM IT INVESTMENT/PORTFOLIO MANAGER * [facility] GENERICPROIntechra HoldingsDER - 11/10/2016 12:00 AM CDTAssociated Order(s): ANTICOAGULATION [facility] Name: CRISTIAN BLEDSOE : 1945 DOS: [...] by:Tiffani Carrero RN Nov 10 2016 2:41PM IT INVESTMENT/PORTFOLIO MANAGER * [facility] GENERICPROVIDER - 10/29/2016 12:00 AM CDTAssociated Order(s): ANTICOAGULATION Anticoagulation [facility] Name: CRISTIAN BLEDSOE : 1945 DOS: [...] by:Tiffani Carrero RN Oct 29 2016 3:44PM IT INVESTMENT/PORTFOLIO MANAGER * MICHELLE [facility]USTINPROIntechra HoldingsBRANDO - 10/23/2016 12:00 AM CDTAssociated Order(s): ANTICOAGULATION [facility] Name: CRISTIAN BLEDSOE : 1945 DOS: 10/23/2016 This is a patient of Dr. Berry. He is taking anticoagulation for a diagnosis of atrial fibrillation.He is scheduled for a prostate biopsy today at the [facility] with Dr. Maloney. Patient had his INR checked in the [facility] lab prior to his procedure [...] by:Tiffani Carrero RN Oct 26 2016 9:49AM IT INVESTMENT/PORTFOLIO MANAGER * MICHELLE AUSTINPR[facility]UBNA - 10/13/2016 12:00 AM CDTAssociated Order(s): ANTICOAGULATION [facility] Name: CRISTIAN BLEDSOE : 1945 DOS: [...] will have his INR checked at the [facility] prior to his biopsy which [...] by:Tiffani Carrero RN Oct 13 2016 12:13PM IT INVESTMENT/PORTFOLIO MANAGER AMENDMENTS: 1. Patient states that he was in the [facility] ER on October 08 with a [...] by:Tiffani Carrero RN Oct 13 2016 12:36PM IT INVESTMENT/PORTFOLIO MANAGER * [facility], GENERICPROLUBNA - 09/15/2016 12:00 AM CSTAssociated Order(s): ANTICOAGULATION Anticoagulation [facility] Name: CRISTIAN BLEDSOE : 1945 DOS: [...] by:Tiffani Carrero RN Sep 15 2016 2:04PM IT INVESTMENT/PORTFOLIO MANAGER * [facility] GENERICPROVIDER - 08/18/2016 12:00 AM CSTAssociated Order(s): ANTICOAGULATION Anticoagulation [facility] Name: CRISTIAN BLEDSOE : 1945 DOS: [...] by:Tiffani Carrero RN Aug 18 2016 2:21PM IT INVESTMENT/PORTFOLIO MANAGER * [facility] GENERICPROVIBRANDO - 07/28/2016 12:00 AM CSTAssociated Order(s): ANTICOAGULATION Anticoagulation [facility] Name: CRISTIAN BLEDSOE : 1945 DOS: [...] by:Tiffani Carrero RN Jul 28 2016 11:06AM IT INVESTMENT/PORTFOLIO MANAGER * [facility], GENERICPROVIDER - 07/14/2016 12:00 AM CSTAssociated Order(s): ANTICOAGULATION Anticoagulation [facility] Name: CRISTIAN BLEDSOE : 1945 DOS: [...] by:Tiffani Carrero RN Jul 14 2016 11:21AM IT INVESTMENT/PORTFOLIO MANAGER * [facility], GENERICPROVIBRANDO - 06/30/2016 12:00 AM CSTAssociated Order(s): ANTICOAGULATION Anticoagulation [facility] Name: CRISTIAN BLEDSOE : 1945 DOS: [...] by:Tiffani Carrero RN Jun 30 2016 9:24AM IT INVESTMENT/PORTFOLIO MANAGER * [facility] - 05/20/2016 12:00 AM CSTAssociated Order(s): ANTICOAGULATION Anticoagulation [facility] Name: CRISTIAN BLEDSOE : 1945 DOS: [...] by:Tiffani Carrero RN May 20 2016 3:59PM IT INVESTMENT/PORTFOLIO MANAGER * [facility] MICHELLEPROGINABRANDO - 04/15/2016 12:00 AM CDTAssociated Order(s): ANTICOAGULATION [facility] Name: CRISTIAN BLEDSOE : 1945 DOS: [...] by:Tiffani Carrero RN Apr 15 2016 5:55PM IT INVESTMENT/PORTFOLIO MANAGER * [facility] MICHELLEPROVIBRANDO - 03/18/2016 12:00 AM CDTAssociated Order(s): ANTICOAGULATION [facility] Name: CRISTIAN BLEDSOE : 1945 DOS: [...] by:Tiffani Carrero RN Mar 18 2016 9:42AM IT INVESTMENT/PORTFOLIO MANAGER * MICHELLE AUSTINPROLUBNA - 03/09/2016 12:00 [...] Tiffani Carrero RN; Mar 09 2016 9:59AM IT INVESTMENT/PORTFOLIO MANAGER * [facility] MICHELLEPROVIBRANDO - 02/27/2016 12:00 AM CDTAssociated Order(s): ANTICOAGULATION [facility] Name: CRISTIAN BLEDSOE : 1945 DOS: [...] by:Tiffani Carrero RN Feb 27 2016 12:04PM IT INVESTMENT/PORTFOLIO MANAGER * [facility] GENERICPROVIBRANDO - 02/12/2016 12:00 AM CDTAssociated Order(s): ANTICOAGULATION [facility] Name: CRISTIAN BLEDSOE : 1945 DOS: [...] by:Tiffani Carrero RN Feb 12 2016 9:02AM IT INVESTMENT/PORTFOLIO MANAGER * [facility] GENERICPROVIBRANDO - 02/04/2016 12:00 AM CDTAssociated Order(s): ANTICOAGULATION Anticoagulation [facility] Name: CRISTIAN BLEDSOE : 1945 DOS: [...] by:Tiffani Carrero RN Feb 04 2016 9:45AM IT INVESTMENT/PORTFOLIO MANAGER * [facility], GENERICPROVIDER - 01/31/2016 12:00 AM CDTAssociated Order(s): [...] by:Carlene Hargrove RN Jan 31 2016 2:45PM IT INVESTMENT/PORTFOLIO MANAGER documented in this encounter Plan of [...] Results * ANTICOAGULATION (01/14/2017) Narrative Procedure Note [facility], GENERICPROVIDER - 01/14/2017 12:00 AM CDT [facility] Name: CRISTIAN BLEDSOE : 1945 DOS: [...] by:Tiffani Carrero RN Jan 14 2017 11:11AM IT INVESTMENT/PORTFOLIO MANAGER [facility] OTHER * ANTICOAGULATION (12/23/2016) Narrative Procedure Note [facility], [facility] - 12/23/2016 12:00 AM CDT Anticoagulation [facility] Name: CRISTIAN BLEDSOE : 1945 DOS: 12/23/2016 This is a patient of Dr. Berry. He is here today for an anticoagulationassessment and INR check for a diagnosis of atrial fibrillation. Patientstates that he has been feeling well. He reports that he met with at the [facility] and will begin radiation on [...] by:Tiffani Carrero RN Dec 23 2016 11:30AM IT INVESTMENT/PORTFOLIO MANAGER [facility] OTHER * ANTICOAGULATION (12/02/2016) Narrative Procedure Note [facility] - 12/02/2016 12:00 AM CDT Anticoagulation [facility] Name: CRISTIAN BLEDSOE : 1945 DOS: [...] by:Tiffani Carrero RN Dec 02 2016 4:10PM IT INVESTMENT/PORTFOLIO MANAGER [facility] OTHER * ANTICOAGULATION (11/17/2016) Narrative Procedure Note [facility] - 11/17/2016 12:00 AM CDT Anticoagulation [facility] Name: CRISTIAN BLEDSOE : 1945 DOS: [...] by:Tiffani Carrero RN Nov 17 2016 9:36AM IT INVESTMENT/PORTFOLIO [facility]NAGER [facility] OTHER * ANTICOAGULATION (11/10/2016) Narrative Procedure Note [facility] - 11/10/2016 12:00 AM CDT Anticoagulation [facility] Name: CRISTIAN BLEDSOE : 1945 DOS: 11/10/2016 This is a patient of Dr. Berry. He is here today for an anticoagulationassessment and INR check for a diagnosis of atrial fibrillation. Patientstates that he has been feeling well. He reports that he has beendiagnosis with prostate cancer and will be meeting with Dr. Con[facility] at [facility] to find out information regarding radiation therapy. Patientdenies any medication changes. INR tested today is elevated at 3.6 withthe recommended range of 2.0 to 3.0. Patient will adjust Coumadin with ahold today (11/10), then take 5 mg daily with an INR recheck in one week.Patient verbalizes understanding. Electronically signed by:Tiffani Carrero RN Nov 10 2016 2:41PM IT INVESTMENT/PORTFOLIO MANAGER [facility] OTHER * ANTICOAGULATION (10/29/2016) Narrative Procedure Note [facility] - 10/29/2016 12:00 AM CDT Anticoagulation [facility] Name: CRISTIAN BLEDSOE : 1945 DOS: [...] by:Tiffani Carrero RN Oct 29 2016 3:44PM IT INVESTMENT/PORTFOLIO MANAGER [facility] OTHER * ANTICOAGULATION (10/23/2016) Narrative Procedure Note [facility] - 10/23/2016 12:00 AM CDT Anticoagulation [facility] Name: CRISTIAN BLEDSOE : 1945 DOS: 10/23/2016 This is a patient of Dr. Berry. He is taking anticoagulation for adiagnosis of atrial fibrillation. He is scheduled for a prostate biopsytoday at the [facility] with Dr. Maloney. Patient had his INR checkedin the [facility] lab prior to his procedure [...] by:Tiffani Carrero RN Oct 26 2016 9:49AM IT INVESTMENT/PORTFOLIO MANAGER [facility] OTHER * ANTICOAGULATION (10/13/2016) Narrative Procedure Note [facility] - 10/13/2016 12:00 AM CDT [facility] Name: CRISTIAN BLEDSOE : 1945 DOS: [...] [facility] which is scheduled [...] by:Tiffani Carrero RN Oct 13 2016 12:13PM IT INVESTMENT/PORTFOLIO MANAGER AMENDMENTS: 1. Patient states that he was in the [facility] ER on October 08 with arapid [...] by:Tiffani Carrero RN Oct 13 2016 12:36PM IT INVESTMENT/PORTFOLIO MANAGER [facility] OTHER * ANTICOAGULATION (09/15/2016) Narrative Procedure Note [facility], [facility] - 09/15/2016 12:00 AM CST [facility] Name: CRISTIAN BLEDSOE : 1945 DOS: [...] by:Tiffani Carrero RN Sep 15 2016 2:04PM IT INVESTMENT/PORTFOLIO MANAGER [facility] OTHER * ANTICOAGULATION (08/18/2016) Narrative Procedure Note [facility] - 08/18/2016 12:00 AM CST Anticoagulation [facility] Name: CRISTIAN BLEDSOE : 1945 DOS: [...] by:Tiffani Carrero RN Aug 18 2016 2:21PM IT INVESTMENT/PORTFOLIO MANAGER [facility] OTHER * ANTICOAGULATION (07/28/2016) Narrative Procedure Note [facility] - 07/28/2016 12:00 AM CST Anticoagulation [facility] Name: CRISTIAN BLEDSOE : 1945 DOS: [...] by:Tiffani Carrero RN Jul 28 2016 11:06AM IT INVESTMENT/PORTFOLIO MANAGER [facility] OTHER * ANTICOAGULATION (07/14/2016) Narrative Procedure Note [facility] - 07/14/2016 12:00 AM CST Anticoagulation [facility] Name: CRISTIAN BLEDSOE : 1945 DOS: [...] by:Tiffani Carrero RN Jul 14 2016 11:21AM IT INVESTMENT/PORTFOLIO MANAGER [facility] OTHER * ANTICOAGULATION (06/30/2016) Narrative Procedure Note [facility] - 06/30/2016 12:00 AM CST Anticoagulation [facility] Name: CRISTIAN BLEDSOE : 1945 DOS: [...] by:Tiffani Carrero RN Jun 30 2016 9:24AM IT INVESTMENT/PORTFOLIO MANAGER [facility] OTHER * ANTICOAGULATION (05/20/2016) Narrative Procedure Note [facility] - 05/20/2016 12:00 AM CST Anticoagulation [facility] Name: CRISTIAN BLEDSOE : 1945 DOS: [...] by:Tiffani Carrero RN May 20 2016 3:59PM IT INVESTMENT/PORTFOLIO MANAGER [facility] OTHER * ANTICOAGULATION (04/15/2016) Narrative Procedure Note [facility] - 04/15/2016 12:00 AM CDT Anticoagulation [facility] Name: CRISTIAN BLEDSOE : 1945 DOS: [...] by:Tiffani Carrero RN Apr 15 2016 5:55PM IT INVESTMENT/PORTFOLIO MANAGER [facility] OTHER * ANTICOAGULATION (03/18/2016) Narrative Procedure Note [facility] - 03/18/2016 12:00 AM CDT Anticoagulation [facility] Name: CRISTIAN BLEDSOE : 1945 DOS: [...] by:Tiffani Carrero RN Mar 18 2016 9:42AM IT INVESTMENT/PORTFOLIO MANAGER [facility] OTHER * ANTICOAGULATION (03/09/2016) Narrative Procedure Note [facility] - 03/09/2016 12:00 AM CDT [facility] Comments [...] Tiffani Carrero RN; Mar 09 2016 9:59AMCST [facility] OTHER * ANTICOAGULATION (02/27/2016) Narrative Procedure Note [facility] - 02/27/2016 12:00 AM CDT Anticoagulation [facility] Name: CRISTIAN BLEDSOE : 1945 DOS: [...] by:Tiffani Carrero RN Feb 27 2016 12:04PM IT INVESTMENT/PORTFOLIO MANAGER [facility] OTHER * ANTICOAGULATION (02/12/2016) Narrative Procedure Note [facility] - 02/12/2016 12:00 AM CDT Anticoagulation [facility] Name: CRISTIAN BLEDSOE : 1945 DOS: [...] by:Tiffani Carrero RN Feb 12 2016 9:02AM IT INVESTMENT/PORTFOLIO MANAGER [facility] OTHER * ANTICOAGULATION (02/04/2016) Narrative Procedure Note [facility] - 02/04/2016 12:00 AM CDT Anticoagulation [facility] Name: CRISTIAN BLEDSOE : 1945 DOS: [...] by:Tiffani Carrero RN Feb 04 2016 9:45AM IT INVESTMENT/PORTFOLIO MANAGER [facility] OTHER * ANTICOAGULATION (01/31/2016) Narrative Procedure Note [facility] - 01/31/2016 12:00 AM CDT [...] on Wednesday of next week. Electronically signed by:Calrene Hargrove RN Jan 31 2016 2:45PM IT INVESTMENT/PORTFOLIO MANAGER [facility] OTHER documented in this encounter Visit Diagnoses Not on filedocumented in this encounter Care Teams Shipping Technician Relationship Specialty Start Date End Date Casey Berry II, DO PCP - General 11/22/06 08/17/19 Stephani Aleman MD PCP - General Family Medicine 08/18/19 09/16/20 Bianka Loera CNP [address] [place] [id number] PCP - General Nurse Practitioner Family 09/17/20 7/2 12/31 Desiree Patrick MD [address] [place] [address] PCP - General Electrophysiology 02/23/22 03/09/22 Desiree Patrick MD [address] [place] [address] 08/09/17 Farrah Nicole APRN,SCIENCE TUTOR [address] [place] [address] 08/09/17 Bry Echevarria MD [address] [place] [address] [place] [address] 08/09/17 Casey Berry II, DO 08/09/17 Shruti Vergara, RN RN Registered Nurse 08/27/20 documented as of this encounter Additional Source Comments PLEASE NOTE: Replies to this message will not be received.[facility]
--- OUTSIDE RECORDS SUMMARY | 2024-04-21 13:19 | XMS_ITS | Encounter Summary ---
Author Organization [employer] Address [address] [place] [address] Care Team Providers Care Nail Puller Name Role Phone Jamal CARLISLE DO, Robert William Primary Care Provide r Unavailable Desiree Patrick MD Unavailable Farrah Nicole APRN,WELL CONTROL INSTRUCTOR Unavailable Bry Echevarria MD Unavailable Jamal CARLISLE DO, Robert William Unavailable Unav Stephani Diaz MD Primary Care Provider Shruti Vergara RN Unavailable Unavailable Bianka Loera CNP Primary Care Provider Desiree Patrick MD Primary Care P rovider Encounter Details Date Type Department Care Team (Late st Contact Info) Description 01/28/2016 Historical Conversion [facility] Family Medicine [address] [place] [id number] Social History Tobacco Use Types Packs/Day Years [...] as of this encounter Procedure Notes * [facility] GENERIC[facility]OVID[facility] - 01/28/2016 12:00 AM CDTAssociated Order(s): [...] daily, Reglan 5 mg TID PRN, and [id number] mg BID for pain in right knee. [...] by:Razia Duarte RN Jan 28 2016 12:46PM FIREARMS MODEL MAKER documented in this encounter Plan of Treatment Not on file documented as of this encounter Procedures Procedure Name Priority Date/Time Associated Diagnosis Comments ANTICOAGULATION 01/28/2016 documented in this encounter Results * ANTICOAGULATION (01/28/2016) Narrative Procedure Note [facility] GENERICPROVID[facility] - 01/28/2016 12:00 AM CDT Name: CRISTIAN WILKINSN: [id number] : 1945 DOS: 01/28/2016 Cristian ia a [...] and approximately 200 lbs. [facility] bleeding or stroke. He [...] summer as he is apart of a [employer]. Drinks green tea onoccasion; encouraged to avoid [...] by:Razia Duarte RN Jan 28 2016 12:46PM FIREARMS MODEL MAKER Genericprovider [facility] OTHER documented in this encounter Visit Diagnoses Not on filedocumented in this encounter Care Teams Nail Puller Relationship Specialty Start Date End Date Casey Berry II, DO PCP - General 11/22/06 08/17/19 Stephani Aleman MD PCP - General Family Medicine 08/18/19 09/16/20 Bianka Loera COMPOUND MACHINE OPERATOR [address] [place] [phone] PCP - General Nurse Practitioner Family 09/17/2001/10 Desiree Patrick MD [address] [place] [address] PCP - General Electrophysiology 02/23/22 03/09/22 Desiree Patrick MD [address] [place] [address] 08/09/17 Farrah Nicole APRN,WELL CONTROL INSTRUCTOR [address] [place] [address] 08/09/17 Byr Echevarria MD [address] [place] [address] 08/09/17 Casey Berry II, DO 08/09/17 Shruti Vergara RN RN Registered Nurse 08/27/20 documented as of this encounter Additional Source Comments PLEASE NOTE: Replies to this message will not be received.[facility]
--- OUTSIDE RECORDS SUMMARY | 2024-04-21 13:19 | XMS_ITS | Encounter Summary ---
Author Organization [employer] Address [address] [place] [address] Care Team Providers Care Lumber Grader Name Role Phone Jamal CARLISLE DO, Robert William Primary Care Provide r Unavailable Desiree Patrick MD Unavailable Farrah Nicole APRN,ASSAULT AMPHIBIOUS VEHICLE CREWMAN Unavailable [phone] Bry Echevarria MD Unavailable Jamal CARLISLE DO, Robert William Unavailable Unav Stephani Diaz MD Primary Care Provider Shruti Vergara RN Unavailable Unavailable Bianka Loera CNP Primary Care Provider Desiree Patrick MD Primary Care P rovider Encounter Details Date Type Department Care Team (Late st Contact Info) Description 08/22/2014 Historical Conversion [facility] Family Medicine [address] [place] [id number] Casey Berry II, DO Social History Tobacco Use Types Packs/Day Years Used Date Smoking Tobacco: Never Assessed Sex and Gender Information Value Date Recorded Sex Assigned at Not on file Gender Identity Not on file Sexual Orientation Not on file documented as of this encounter Progress Notes * Casey Berry II, DO - 01/29/2015 12:00 AM CDT CRISTIAN BLEDSOE : 1945 HX: [id number] DOS: 01/29/2015 CHIEF COMPLAINT: Follow up after [...] by:Casey Berry D.O. Feb 11 2015 7:55AM VICE PRESIDENT OF ENGINEERING * Casey Berry II, DO - 09/10/2014 12:00 AM CST CRISTIAN BLEDSOE : 1945 HX: [id number] DOS: 09/10/2014 CHIEF COMPLAINT: Follow up of [...] by:Casey Berry D.O. Sep 26 2014 3:33PM VICE PRESIDENT OF ENGINEERING documented in this encounter Miscellaneous Notes * [...] [facility] Electronically signed by:DEYANIRA FRANCOIS Dec 06 2014 9:03AM VICE PRESIDENT OF ENGINEERING documented in this encounter Plan of Treatment Not on file documented as of this encounter Visit Diagnoses Not on filedocumented in this encounter Care Teams Lumber Grader Relationship Specialty Start Date End Date Casey Berry II, DO PCP - General 11/22/06 08/17/19 Stephani Aleman MD PCP - General Family Medicine 08/18/19 09/16/20 Bianka Loera, MANAGER ASSESSMENT [address] [place] [phone] PCP - General Nurse Practitioner Family 09/17/2001/10 Desiree Patrick MD [address] [place] [address] PCP - General Electrophysiology 02/23/22 03/09/22 Desiree Patrick MD [address] [place] [address] 08/09/17 Farrah Nicole APRN,ASSAULT AMPHIBIOUS VEHICLE CREWMAN [address] [place] [address] 08/09/17 Bry Echevarria MD [address] [place] [address] [place] [address] 08/09/17 Casey Berry II, DO 08/09/17 Shruti Vergara RN RN Registered Nurse 08/27/20 documented as of this encounter Additional Source Comments PLEASE NOTE: Replies to this message will not be received.[facility] and [facility]
--- OUTSIDE RECORDS SUMMARY | 2024-04-21 13:19 | XMS_ITS | Encounter Summary ---
Author Organization [employer] Address [address] [place] [address] Care Team Providers Care Division Commander Name Role Phone Jamal CARLISLE DO, Robert William Primary Care Provide r Unavailable Desiree Patrick MD Unavailable Farrah Nicole APRN,WIRE COATING MACHINE OPERATOR Unavailable [phone] Bry Echevarria MD Unavailable Jamal CARLISLE DO, Robert William Unavailable Unav Stephani Diaz MD Primary Care Provider [phone] Shruti Vergara RN Unavailable Unavailable Bianka Loera CNP Primary Care Provider Desiree Patrick MD Primary Care P rovider Encounter Details Date Type Department Care Team (Late st Contact Info) Description 12/11/2015 Historical Conversion [facility] [address] [place] [phone] Casey Berry II, DO Social History Tobacco [...] filedocumented in this encounter Care Teams Division Commander Relationship Specialty Start Date End Date Casey Berry II, DO PCP - General 11/22/06 08/17/19 Stephani Aleman MD PCP - General Family Medicine 08/18/19 09/16/20 Bianka Loera CNP [address] [place] [phone] PCP - General Nurse Practitioner Family 09/17/2001/10 [place] [address] [place] [address] PCP - General Electrophysiology 02/23/22 03/09/22 Desiree Patrick MD [address] [place] [place] [address] 08/09/17 Farrah Nicole APRN,[facility] [address] [place] [address] 08/09/17 Bry Echevarria MD [address] [place] [address] [place] [address] 08/09/17 Casey Berry II, DO 08/09/17 Shruti Vergara RN RN Registered Nurse 08/27/20 documented as of this encounter Additional Source Comments PLEASE NOTE: Replies to this message will not be received.[facility] and [facility]
--- OUTSIDE RECORDS SUMMARY | 2024-04-21 13:19 | XMS_ITS | Encounter Summary ---
Author Organization [facility] Listed [facility] Address [address] [place] [address] Care Team Providers Care Drain Tile Press Operator Name Role Phone Jamal CARLISLE DO, Robert William Primary Care Provide r Unavailable Desiree Patrick MD Unavailable Farrah Nicole APRN,NURSE SPECIALIST Unavailable Bry Echevarria MD Unavailable Jamal CARLISLE DO, Robert William Unavailable Unav Stephani Diaz MD Primary Care Provider [phone] Shruti Vergara RN Unavailable Unavailable Bianka Loera CNP Primary Care Provider [phone] Desiree Patrick MD Primary Care P rovider Encounter Details Date Type Department Care Team (Late st Contact Info) Description 11/19/2015 HIM Nurse Wound [facility] [place] [address] [place] [address] Dionisio Meneses MD [address] [place] [address] Social History Tobacco Use Types [...] ADULT WITH OR WITHOUT CONTRAST PERFORMED BY: [place], [place] SITE: [place], [place] INTERPRETED BY: [facility] [place], [place] TRANSTHORACIC ECHOCARDIOGRAM REPORT REFERRING DIAGNOSIS: Atrial [...] comparison. Note: This study was performed by [employer] for [place]. Only the interpretation wasperformed at the [facility]. Electronically signed Dionisio Meneses MD, [facility] Orthopaedic Surgeon , 04:04 P A vd/Doc#: [id number] cc: Adult Normal Value Adult Patient Values [...] kg Blood pressure: 126/75 Previous study: -- Production Quality Manager: Lisa documented in this encounter Plan [...] - 11/19/2015 12:00 AM CDT PERFORMED BY: [place], [place] SITE: [place], [place] INTERPRETED BY: [facility] [place], [place] TRANSTHORACIC ECHOCARDIOGRAM REPORT REFERRING DIAGNOSIS: Atrial [...] comparison. Note: This study was performed by [facility].Only the interpretation was performed at the [facility]. Electronically signed Dionisio Meneses MD, [facility] Orthopaedic Surgeon , 04:04 P A vd/Doc#: [id number] cc: Adult Normal Value Adult Patient Values [...] kg Blood pressure: 126/75 Previous study: -- Production Quality Manager: Lisa Dionisio Meneses MD CAR ULTRASOUND documented in this encounter Visit Diagnoses Not on filedocumented in this encounter Care Teams Drain Tile Press Operator Relationship Specialty Start Date End Date Casey Berry II, DO PCP - General 11/22/06 08/17/19 Stephani Aleman MD PCP - General Family Medicine 08/18/19 09/16/20 Bianka Loera PNEUMATIC TUBE FITTER [address] [place] [address] [address] [place] [phone] PCP - General Nurse Practitioner Family 09/17/20 712/31 Desiree Patrick MD [address] [place] [address] PCP - General Electrophysiology 02/23/22 03/09/22 Desiree Patrick MD [address] [place] [address] 08/09/17 Farrah Nicole APRN,NURSE SPECIALIST [address] [place] [phone] 08/09/17 Bry Echevarria MD [address] [place] [phone] 08/09/17 Casey Berry II, DO 08/09/17 Shruti Vergara RN RN Registered Nurse 08/27/20 documented as of this encounter Additional Source Comments PLEASE NOTE: Replies to this message will not be received.[facility] and [facility]
--- OUTSIDE RECORDS SUMMARY | 2024-04-21 13:19 | XMS_ITS | Encounter Summary ---
Author Organization [employer] Address [address] [place] [address] Care Team Providers Care Disk Grinder Name Role Phone Jamal CARLISLE DO, Robert William Primary Care Provide r Unavailable Desiree Patrick MD Unavailable Farrah Nicole APRN,PRINCIPAL ACCOUNTS CLERK Unavailable Bry Echevarria MD Unavailable [phone] Jamal CARLISLE DO, Robert William Unavailable Unav Stephani Diaz MD Primary Care Provider [phone] Shruti Vegrara RN Unavailable Unavailable Bianka Loera CNP Primary Care Provider Desiree Patrick MD Primary Care P rovider Encounter Details Date Type Department Care Team (Late st Contact Info) Description 02/11/2016 Historical Conversion [facility] [address] [place] [address] Moon Maloney MD Social History Tobacco Use [...] on filedocumented in this encounter Care Teams Disk Grinder Relationship Specialty Start Date End Date Casey Berry II, DO PCP - General 11/22/06 08/17/19 Stephani Aleman MD PCP - General Family Medicine 08/18/19 09/16/20 Bianka Loera CNP [address] [place] [phone] PCP - General Nurse Practitioner Family 09/17/2001/10 [place] [address] [place] [address] PCP - General Electrophysiology 02/23/22 03/09/22 Desiree Patrick MD [address] [place] [address] 08/09/17 Farrah Nicole APRN,[facility] [address] [place] [address] 08/09/17 Bry Echevarria MD [facility] [place] [address] 08/09/17 Casey Berry II, DO 08/09/17 Shruti Vergara RN RN Registered Nurse 08/27/20 documented as of this encounter Additional Source Comments PLEASE NOTE: Replies to this message will not be received.[facility] and [facility]
--- OUTSIDE RECORDS SUMMARY | 2024-04-21 13:19 | XMS_ITS | Clinical Summary ---
Author Organization [facility] Address [address] [place] [address] Care Team Providers Care Milieu Coordinator Name Role Phone Unavailable Primary Care Provider Unavailabl e Source Comments Patient records contain information from all sites at [facility]. For routine questions regarding patient records, call [phone] during business hours, M-F 8:00 AM - 5:00 PM Central Time. Record requests for emergency care only can be directed to [phone] at any time.[facility] Allergies Active Allergy Reactions Criticality Noted [...] BISACODYL, ORAL Take by mouth. Activ e carbidopa-levodopa (SINEMET) 25-100 mg per tablet Take 2.5 tablets by mouth 3 (three) times a day. 675 tablet 3 04/15/2023 Active Additional Information Patient taking differently: 3 [...] (05/17/2023): 4.2 x 4.[address] [facility] Encounters Date Type Department Care Team Description 02/24/2024 1:38 PM CDT - 02/24/2024 11:59 PM CDT Hospital Encounter Department of Radiology in [place], [place] [address] [place] [phone] Vic Mae M.D. Parkinsonism Unspecified (HCC) Discharge Disposition: Home or Self Care 02/23/2024 10:15 AM CDT Comprehensive Visit Department of Neurology in [place], [place] [address] [place] [phone] Vic Mae M.D. Parkinsonism Unspecified (HCC) from [...] Comments Blood Pressure 136/82 05/17/2023 1:44 PM OPERATIONS AND MAINTENANCE TECHNICAN Pulse 70 05/17/2023 1:44 PM OPERATIONS AND MAINTENANCE TECHNICAN Temperature 36.8 ??C (98.2 ??F) 05/17/2023 1:44 PM CS T Respiratory Rate - - Oxygen Saturation - - Inhaled Oxygen Concentration - - Weight 87.3 kg (192 lb 7.4 oz) 05/17/2023 1:44 P M OPERATIONS AND MAINTENANCE TECHNICAN Height 184 cm (6' 0.44) 04/15/2023 2:57 PM CDT Body Mass Index 25.79 04/15/2023 2:57 PM CDT Plan of Treatment Health Maintenance Due Date Last Done Comments Creatinine Level (Kidney Fun ction Test) 1945 Hepatitis C Screening 1945 Potassium Level 1945 Sodium Level 1945 Fall Risk Screen (Annual) 07/12/2023 COVID-19 Vaccine (2023-2 5 season) 2024 04/17/2023, 05/07/2022, 11/04/2021, Additional history exists Influenza Vaccine (#1) 2024 , 04/13/2022, 03/25/2021, Additional history exists Office Visit for Blood Press ure Check / Re-check 05/17/2024 05/17/2023 DTaP,Tdap,and Td Vaccines (3 - Td or Tdap) 09/14/2033 09/15/2023, 08/21/2013 Pneumococcal vaccine (65+ years) Completed 08/28/2016, 08/28/2015, 01/28/2010 RSV vaccine - (32-3 6 weeks) or 60+ years Completed 04/17/2023 Zoster Vaccines Completed 11/16/2023, 0312/2023, 01/28/2010 Procedures [...]
--- OUTSIDE RECORDS SUMMARY | 2024-04-21 13:19 | XMS_ITS | Encounter Summary ---
Author Organization [employer] Address [address] [place] [address] Care Team Providers Care Cardiovascular Disease Specialist Name Role Phone Jamal CARLISLE DO, Robert William Primary Care Provide r Unavailable Desiree Patrick MD Unavailable Farrah Nicole APRN,DOCUMENTATION ANALYST Unavailable Bry Echevarria MD Unavailable [phone] Jamal CARLISLE DO, Robert William Unavailable Unav Stephani Diaz MD Primary Care Provider Shruti Vergara RN Unavailable Unavailable Bianka Loera CNP Primary Care Provider Desiree Patrick MD Primary Care P rovider Encounter Details Date Type Department Care Team (Late st Contact Info) Description 11/07/2015 Historical Conversion [facility] Family Medicine [address] [place] [address] Moon Maloney MD Social History Tobacco Use [...] Body Mass Index 26.65 08/28/2015 12:00 AM MOUNTER HAND documented in this encounter Progress Notes * Moon Maloney MD - 11/06/2016 12:00 AM CDT [place]RISTIAN BLEDSO[place] : 1945 HX: [id number] DOS: 11/06/2016 SUBJECTIVE: Cristian and his are here to discuss the results of the recent prostate biopsy. We ended up taking Anurag off his Coumadin and doing a prostate biopsy because of a positive PHOTO BOOTH OPERATOR-3 test and an elevated PSA, so [...] two cores on the left base. Adenocarcinoma O[place]ander 7 less than 5% one of two [...] be comfortable watching him. However, with the [place] 7, I know that they are watching [...] by:Moon Maloney M.D. Nov 09 2016 1:49PM MOUNTER HAND * Moon Maloney MD - 10/23/2016 12:00 AM CDT UROLOGY [place]RISTIAN BLEDSOE : 1945 HX: [id number] DOS: 10/23/2016 SUBJECTIVE: Cristian is here for a prostate biopsy. I saw Cristian in August. PSA has started to go up.He had a little bit of an elevated PSA and elevated PSA velocity. We did a PHOTO BOOTH OPERATOR-3 test. It did just come back [...] negative. IMPRESSION: 1. Elevated PSA and positive PHOTO BOOTH OPERATOR-3 test. PLAN: I told Anurag to [...] Moon Maloney M.D./la-17 cc: Casey Berry II, D.OWilliam/[facility] Electronically signed by:Moon Maloney M.D. Oct 26 2016 12:13PM MOUNTER HAND * Moon Maloney MD - 08/27/2016 12:00 AM CST UROLOGY [place]RI[place] BLED[place]E : 1945 HX: [id number] DOS: 08/27/2016 SUBJECTIVE: Cristian comes to see [...] because we are going to do a PHOTO BOOTH OPERATOR-3 test. LABORATORY DATA: AUA symptom score is 1. He has absolutely no trouble urinating. PSA is 5.4. IMPRESSION: 1. Elevated PSA velocity. PLAN: We are going to go ahead and get a PHOTO BOOTH OPERATOR-3 test because his velocity is really [...] going to go ahead and get a PHOTO BOOTH OPERATOR-3 test today. Obviously if that is [...] course risks of bleeding. However, if the PHOTO BOOTH OPERATOR-3 is negative, then I would just see him in six months for a PSA. Total time spent with the patient was 25 minutes with greater than 50% in counseling. Moon Maloney M.D./la-21 cc: Casey Berry II, D.OWilliam/[facility] Electronically signed by:Moon Maloney M.D. Sep 18 2016 1:34PM MOUNTER HAND * Moon Maloney MD - 02/11/2016 12:00 AM CDT UROLOGY [place] : 1945 HX: [id number] DOS: 02/11/2016 SUBJECTIVE: Cristian comes to see [...] Moon Maloney M.D./la-2 cc: Casey Berry, II, D.O./[facility] Electronically signed by:Moon Maloney M.D. Feb 24 2016 9:43AM MOUNTER HAND * Moon Maloney MD - 11/07/2015 12:00 AM CDT UROLOGY [place] : 1945 HX: [id number] DOS: 11/07/2015 REFERRING PROVIDER: Dr. Berry. HISTORY [...] He is a former smoker, retired from [employer], he is . FAMILY HISTORY: Negative for [...] Maloney M.D./la-29 cc: Casey Berry II, D.O./[facility] Electronically signed by:Moon Maloney M.D. Nov 25 2015 10:34AM MOUNTER HAND documented in this encounter Plan of Treatment Not on file documented as of this encounter Visit Diagnoses Not on filedocumented in this encounter Care Teams Cardiovascular Disease Specialist Relationship Specialty Start Date End Date Casey Berry II, DO PCP - General 11/22/06 08/17/19 Stephani Aleman MD PCP - General Family Medicine 08/18/19 09/16/20 Bianka Loera CNP [address] [facility] [address] [facility] [address] [place] [address] PCP - General Nurse Practitioner Family 09/17/2001/10 [place] [address] [place] [address] PCP - General Electrophysiology 02/23/22 03/09/22 Desiree Patrick MD [address] [place] [address] 08/09/17 Farrah Nicole APRN,DOCUMENTATION ANALYST [address] [place] [address] 08/09/17 Bry Echevarria MD [address] [place] [address] [facility] [address] 08/09/17 Casey Berry II, DO 08/09/17 Shruti Vergara RN RN Registered Nurse 08/27/20 documented as of this encounter Additional Source Comments PLEASE NOTE: Replies to this message will not be received.[facility] and [facility]
--- OUTSIDE RECORDS SUMMARY | 2024-04-21 13:19 | XMS_ITS | Encounter Summary ---
Author Organization [facility] Address [address] [place] [address] Care Team Providers Care Mine Foreman Name Role Phone Jamal CARLISLE DO, Robert William Primary Care Provide r Unavailable Desiree Patrick MD Unavailable Farrah Nicole APRN,PERFORMANCE MAKEUP ARTIST Unavailable Bry Echevarria MD Unavailable [phone] Jamal CARLISLE DO, Robert William Unavailable Unav Stephani Diaz MD Primary Care Provider Shruti Vergara RN Unavailable Unavailable Bianka Loera CNP Primary Care Provider Desiree Patrick MD Primary Care P rovider Encounter Details Date Type Department Care Team (Late st Contact Info) Description 08/22/2014 Historical Conversion [facility] Family Medicine [address] [place] [phone] Casey Berry II, DO Social History Tobacco [...] AND PHYSICAL [place]IAN BLED[place]E : 1945 HX: [id number] DOS: 08/22/2014 CHIEF COMPLAINT: Routine physical. HISTORY [...] alcohol. 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 ALLERGIES: PENICILLIN AND SULFA. HEALTH CARE MAINTENANCE: [...] by:Casey Berry D.O. Sep 06 2014 7:40AM APPAREL EMBROIDERY DIGITIZER documented in this encounter Plan of Treatment Not on file documented as of this encounter Visit Diagnoses Not on filedocumented in this encounter Care Teams Mine Foreman Relationship Specialty Start Date End Date Casey Berry II, DO PCP - General 11/22/06 08/17/19 Stephani Aleman MD PCP - General Family Medicine 08/18/19 09/16/20 Bianka Loera CNP [address] [facility] [address] [place] [address] PCP - General Nurse Practitioner Family 09/17/2001/10 Desiree Patrick MD [address] [facility] [place] [address] PCP - General Electrophysiology 02/23/22 03/09/22 Desiree Patrick MD [address] [facility] [place] [address] 08/09/17 Farrah Nicole, RETAIL WIRELESS SALES CONSULTANT,PERFORMANCE MAKEUP ARTIST [address] [facility] [place] [address] 08/09/17 Bry Echevarria MD [facility] [place] [address] 08/09/17 Casey Berry II, DO 08/09/17 Shruti Vergara RN RN Registered Nurse 08/27/20 documented as of this encounter Additional Source Comments PLEASE NOTE: Replies to this message will not be received.[facility] and [facility]
--- OUTSIDE RECORDS SUMMARY | 2024-04-21 13:19 | XMS_ITS | Encounter Summary ---
Author Organization [facility] [employer] [facility] Address [address] [place] [address] Care Team Providers Care Director Power Name Role Phone Jamal CARLISLE DO, Robert William Primary Care Provide r Unavailable Desiree Patrick MD Unavailable Farrah Nicole APRN,EMERGENCY DISPATCH OPERATOR Unavailable Bry Echevarria MD Unavailable [phone] Jamal CARLISLE DO, Robert William Unavailable Unav Stephani Diaz MD Primary Care Provider Shruti Vergara RN Unavailable Unavailable Bianka Loera CNP Primary Care Provider Desiree Patrick MD Primary Care P rovider Encounter Details Date Type Department Care Team (Late st Contact Info) Description [address] [address] Social History Tobacco Use Types Packs/Day Years [...] General Family Medicine 08/18/19 09/16/20 Bianka Loera JUKEBOX OPERATOR [address] [place] [address] [address] [place] [phone] PCP - General Nurse Practitioner Family 09/17/20 712/31 Desiree Patrick MD [address] [place] [address] PCP - General Electrophysiology 02/23/22 03/09/22 Desiree Patrick MD [address] [place] [address] 08/09/17 Farrah Nicole APRN,EMERGENCY DISPATCH OPERATOR [address] [place] [address] 08/09/17 Bry Echevarria MD [address] [place] [phone] 08/09/17 Casey Berry II, DO 08/09/17 Shruti Vergara RN RN Registered Nurse 08/27/20 documented as of this encounter Additional Source Comments PLEASE NOTE: Replies to this message will not be received.[facility] and [facility]
--- OUTSIDE RECORDS SUMMARY | 2024-04-21 13:19 | XMS_ITS | Encounter Summary ---
Author Organization [facility] Address [address] [place] [address] Care Team Providers Care Reflexologist Name Role Phone Jamal CARLISLE DO, Robert William Primary Care Provide r Unavailable Desiree Patrick MD Unavailable Farrah Nicole APRN, CNS Unavailable Bry Echevarria MD Unavailable Jamal CARLISLE DO, Robert William Unavailable Unav Stephani Diaz MD Primary Care Provider Shruti Vergara RN Unavailable Unavailable Bianka Loera CNP Primary Care Provider [phone] Desiree Patrick MD Primary Care P rovider Encounter Details Date Type Department Care Team (Late st Contact Info) Description 11/15/2006 Clinic Encounter [facility] Dermatology [address] [place] [address] Ganga Anderson MD Social History [...] Rohan Carroll : 1945 E: Ganga Anderson MD/[facility] DERMATOLOGY OFFICE VISIT CHART: [id number] P Date of Service: 2006 Doc #: [id number] P Attending Physician: None available SUBJECTIVE: This [...] 1 cc was used locally. Using a [place] blade, the skin biopsy was then performed. [...] we will set up treatment as indicated. [facility] documented in this encounter Plan of Treatment Not on file documented as of this encounter Visit Diagnoses Not on filedocumented in this encounter Care Teams Reflexologist Relationship Specialty Start Date End Date Casey Berry II, DO PCP - General 11/22/06 08/17/19 Stephani Aleman MD PCP - General Family Medicine 08/18/19 09/16/20 Bianka Loera CNP [address] [place] [address] [address] [place] [address] PCP - General Nurse Practitioner Family 09/17/20 7/2 12/31 Desiree Patrick MD [address] [place] [address] PCP - General Electrophysiology 02/23/22 03/09/22 Desiree Patrick MD [address] [place] [place] [address] 08/09/17 Farrah Nicole APRN,PERMASTONE APPLICATOR [address] [place] [place] [address] 08/09/17 Bry Echevarria MD [address] [place] [address] 08/09/17 Casey Berry II, DO 08/09/17 Shruti Vergara RN RN Registered Nurse 08/27/20 documented as of this encounter Additional Source Comments PLEASE NOTE: Replies to this message will not be received.[facility] and [facility]
--- OUTSIDE RECORDS SUMMARY | 2024-04-21 13:19 | XMS_ITS | Encounter Summary ---
Author Organization [employer] Address [address] [place] [address] Care Team Providers Care Shrimp Peeler Name Role Phone Jamal CARLISLE DO, Robert William Primary Care Provide r Unavailable Desiree Patrick MD Unavailable Farrah Nicole APRN,STOCK ROOM MANAGER Unavailable Bry Echevarria MD Unavailable Jamal CARLISLE DO, Robert William Unavailable Unav Stephani Diaz MD Primary Care Provider Shruti Vergara RN Unavailable Unavailable Bianka Loera CNP Primary Care Provider Desiree Patrick MD Primary Care P rovider Encounter Details Date Type Department Care Team (Late st Contact Info) Description 09/10/2014 Historical Conversion [facility] Family Medicine [address] [place] [address] Casey Berry II, DO Social History Tobacco Use Types Packs/Day Years Used Date Smoking Tobacco: Never Assessed Sex and Gender Information Value Date Recorded Sex Assigned at Not on file Gender Identity Not on file Sexual Orientation Not on file documented as of this encounter Last Filed Vital Signs Vital Sign Reading Time Taken Comments Blood Pressure 130/80 09/10/2014 12:00 AM RUG WASHER Pulse - - Temperature - - Respiratory Rate - - Oxygen Saturation - - Inhaled Oxygen Concentration - - Weight 93.9 kg (207 lb 0.2 oz) 09/10/2014 12:00 AM RUG WASHER Height - - Body Mass Index 27.31 08/22/2014 12:00 AM RUG WASHER documented in this encounter Plan of Treatment Not on file documented as of this encounter Visit Diagnoses Not on filedocumented in this encounter Care Teams Shrimp Peeler Relationship Specialty Start Date End Date Casey Berry II, DO PCP - General 11/22/06 08/17/19 Stephani Aleman MD PCP - General Family Medicine 08/18/19 09/16/20 Bianka Loera CNP [address] [place] [address] [address] [place] [id number] PCP - General Nurse Practitioner Family 09/17/2001/10 Desiree Patrick MD [address] [place] [address] PCP - General Electrophysiology 02/23/22 03/09/22 Desiree Patrick MD [address] [place] [address] 08/09/17 Farrah Nicole APRN,STOCK ROOM MANAGER [address] [place] [address] 08/09/17 Bry Echevarria MD [address] [place] [address] [place] [phone] 08/09/17 Casey Berry II, DO 08/09/17 Shruti Vergara RN RN Registered Nurse 08/27/20 documented as of this encounter Additional Source Comments PLEASE NOTE: Replies to this message will not be received.[facility] and On [facility]
--- OUTSIDE RECORDS SUMMARY | 2024-04-21 13:19 | XMS_ITS | Encounter Summary ---
Author Organization [facility] Address [address] [place] [address] Care Team Providers Care Volleyball Commentator Name Role Phone Jamal CARLISLE DO, Robert William Primary Care Provide r Unavailable Desiree Patrick MD Unavailable Farrah Nicole APRN,HOME SCHOOL TEACHER Unavailable Bry Echevarria MD Unavailable Jamal CARLISLE DO, Robert William Unavailable Unav Stephani Diaz MD Primary Care Provider Shruti Vergara RN Unavailable Unavailable Bianka Loera CNP Primary Care Provider Desiree Patrick MD Primary Care P rovider Encounter Details Date Type Department Care Team (Late st Contact Info) Description 11/26/2015 HIM Lung Splitter [facility] Heart & Vascular [address] [address] Rajeev Barlow MD Social History [...] Order(s): MYOCARDIAL PERFUSION PHARMACOLOGIC STRESS PERFORMED BY: [facility] | [facility] [place], [place] SITE: [place], [place] INTERPRETED BY: [facility] [place], [place] PHARMACOLOGIC MYOCARDIAL PERFUSION SCAN Study supervised [...] TYPE: Rest/stress, single isotope gated SPECT imaging. [id number]: 12.5 mCi (IV) for the rest injection. [id number]: 33.1 mCi (IV) for the stress injection. [...] function. Note: This study was performed by [facility]. Only the interpretation was performed at the [facility] [place]. Electronically signed Rajeev Barlow MD, [facility] Manufacturing Plant Technician , 03:10 P A dsc/Doc#: [id number] cc: documented in this encounter Plan of Treatment Not on file documented as of this encounter Procedures Procedure Name Priority Date/Time Associated Diagnosis Comments MYOCARDIAL PERFUSION PHARMACOLOGIC STRESS 11/26/2015 documented in this encounter Results * MYOCARDIAL PERFUSION PHARMACOLOGIC STRESS (11/26/2015) Anatomical Region Laterality Modality Other 11/26/2015 Narrative Procedure Note Rajeev Barlow MD - 11/26/2015 12:00 AM CDT PERFORMED BY: [facility] [place], [place] SITE: [place], [place] INTERPRETED BY: [facility], [place] PHARMACOLOGIC MYOCARDIAL PERFUSION SCAN Study supervised [...] TYPE: Rest/stress, single isotope gated SPECT imaging. [id number]: 12.5 mCi (IV) for the rest injection. [id number]: 33.1 mCi (IV) for the stress injection. [...] function. Note: This study was performed by [facility]. Only theinterpretation was performed at the [facility]. Electronically signed Rajeev Barlow MD, [facility] Manufacturing Plant Technician , 03:10 P A dsc/Doc#: [id number] cc: Rajeev Barlow MD [facility] MED/STRESS documented in this encounter Visit Diagnoses Not on filedocumented in this encounter Care Teams Volleyball Commentator Relationship Specialty Start Date End Date Casey Berry II, DO PCP - General 11/22/06 08/17/19 Stephani Aleman MD PCP - General Family Medicine 08/18/19 09/16/20 Bianka Loera CNP [address] [place] [address] PCP - General Nurse Practitioner Family 09/17/2001/10 Desiree Patrick MD [address] [place] [address] PCP - General Electrophysiology 02/23/22 03/09/22 Desiree Patrick MD [address] [facility] [place] [address] 08/09/17 Farrah Nicole APRN,HOME SCHOOL TEACHER [address] [place] [address] 08/09/17 Bry Echevarria MD [address] [place] [address] 08/09/17 Casey Berry II, DO 08/09/17 Shruti Vergara RN RN Registered Nurse 08/27/20 documented as of this encounter Additional Source Comments PLEASE NOTE: Replies to this message will not be received.[facility]"
--- OUTSIDE RECORDS SUMMARY | 2024-04-21 13:19 | XMS_ITS | Encounter Summary ---
Author Organization [facility] Address [address] [place] [address] Care Team Providers Care First Aid Attendant Name Role Phone Jamal CARLISLE DO, Robert William Primary Care Provide r Unavailable Desiree Patrick MD Unavailable Farrah Nicole APRN,BUTTONER Unavailable [phone] Bry Echevarria MD Unavailable Jamal CARLISLE DO, Robert William Unavailable Unav Stephani Diaz MD Primary Care Provider Shruit Vergara RN Unavailable Unavailable Bianka Loera CNP Primary Care Provider [phone] Desiree Patrick MD Primary Care P rovider Encounter Details Date Type Department Care Team (Late st Contact Info) Description 08/22/2014 Historical Conversion [facility] Family Medicine [address] [place] [address] Casey Berry II, DO Social History Tobacco Use Types Packs/Day Years Used Date Smoking Tobacco: Never Assessed Sex and Gender Information Value Date Recorded Sex Assigned at Not on file Gender Identity Not on file Sexual Orientation Not on file documented as of this encounter Last Filed Vital Signs Vital Sign Reading Time Taken Comments Blood Pressure 145/88 08/22/2014 12:00 AM TUBING MILL OPERATOR Pulse - - Temperature - - Respiratory Rate - - Oxygen Saturation - - Inhaled Oxygen Concentration - - Weight 90.7 kg (200 lb) 08/22/2014 12:00 AM TUBING MILL OPERATOR Height 185.4 cm (6' 1) 08/22/2014 12:00 AM TUBING MILL OPERATOR Body Mass Index 26.39 08/22/2014 12:00 AM TUBING MILL OPERATOR documented in this encounter Plan of Treatment Not on file documented as of this encounter Visit Diagnoses Not on filedocumented in this encounter Care Teams First Aid Attendant Relationship Specialty Start Date End Date Casey Berry II, DO PCP - General 11/22/06 08/17/19 Stephani Aleman MD PCP - General Family Medicine 08/18/19 09/16/20 Bianka Loera CNP [address] [place] [address] [address] [place] [address] PCP - General Nurse Practitioner Family 09/17/2001/10 Desiree Patrick MD [address] [place] [address] PCP - General Electrophysiology 02/23/22 03/09/22 Desiree Patrick MD [address] [place] [address] 08/09/17 Farrah Nicole, EMERGENCY DEPARTMENT COORDINATOR,BUTTONER [address] [place] [address] 08/09/17 Bry Echevarria MD [address] [place] [address] [place] [id number] 08/09/17 Casey Berry II, DO 08/09/17 Shruti Vergara RN RN Registered Nurse 08/27/20 documented as of this encounter Additional Source Comments PLEASE NOTE: Replies to this message will not be received.[facility] and [facility]
--- OUTSIDE RECORDS SUMMARY | 2024-04-21 13:19 | XMS_ITS | Referral Summary ---
Author Organization [facility] Address [address] [place] [address] Care Team Providers Care Watch Supervisor Name Role Phone Unavailable Primary Care Provider Unavailabl e Source Comments Patient records contain information from all sites at [facility]. For routine questions regarding patient records, call [phone] during business hours, M-F 8:00 AM - 5:00 PM Central Time. Record requests for emergency care only can be directed to [phone] at any time.[facility] Encounters Date Type Department Care Team Description 02/24/2024 1:38 PM CDT - 02/24/2024 11:59 PM CDT Hospital Encounter Department of Radiology in [address] [address] Vic Mae M.D. Parkinsonism Unspecified (HCC) Discharge Disposition: Home or Self Care 02/23/2024 10:15 AM CDT Comprehensive Visit Department of Neurology in [address] [address] Vic Mae M.D. Parkinsonism Unspecified (HCC) from [...] 2015 Overview (05/17/2023): 4.2 x 4.[address] [facility] Social History Tobacco Use [...] Comments Blood Pressure 136/82 05/17/2023 1:44 PM STRUCTURAL ENGINEERING PROJECT MANAGER Pulse 70 05/17/2023 1:44 PM STRUCTURAL ENGINEERING PROJECT MANAGER Temperature 36.8 ??C (98.2 ??F) 05/17/2023 1:44 PM CS T Respiratory Rate - - Oxygen Saturation - - Inhaled Oxygen Concentration - - Weight 87.3 kg (192 lb 7.4 oz) 05/17/2023 1:44 P M STRUCTURAL ENGINEERING PROJECT MANAGER Height 184 cm (6' 0.44) 04/15/2023 2:57 [...] Head, Brain, Neuroradiology RST LOS, Neuroradiology [facility], Neuroradiology [facility] N/A Magnetic Resonance Impressions 02/24/2024 4:49 PM [...]
--- OUTSIDE RECORDS SUMMARY | 2024-04-21 13:20 | XMS_ITS | Continuity of Care Document ---
Author Organization [facility] Address [address] [place] [address] Phone Care Team Providers Care Railroad Design Consultant Name Role Phone [facility] MD, [facility] Unavailable Unavailable Allergies, Adverse Reactions, Alerts Substance Reaction Status Criticality Sulfa (Sulfonamide Antibiotics) rash Active No Information PENICILLIN rash Active No Information Medications Medication Instructions Dosage Effective Dates (start - stop) Status Comments Esnq-Unqb-Xjfxe 1%/0.5%/.01% OPHTHALMIC DROPS Apply one drop to [...] Date Provider Providers Copied on Encounter [facility], [address] [place], [id number], [place] tel:[phone] [facility] No Information 2 [facility]. [address] [place], [id number]. tel:[phone] Referring Provider: Timoteo Zhao, [address] [place], [address] . tel:[phone] [facility] Ophthalmic Surgery, [address] [place], [place], [id number], [place] tel:[phone] [facility] No Information 2 [facility]. [address] [place], [id number]. tel:[phone] Referring Provider: Timoteo Zhao, [address] [place], [address] . tel:[phone] [facility] Surgery, [address] [place], [id number], [place] tel:[phone] [facility] No Information 9 [facility]. [address] [place], [id number]. tel:[phone] Referring Provider: Timoteo Zhao, [address] [place], [address] . tel:[phone] [facility]hthalmic Surgery, [address] [place], [id number], [place] tel:[phone] [facility] No Information 9 [facility]. [address] [facility], [place], [place], [id number]. tel:[phone] Referring Provider: Timoteo Zhao, [address] [place] [address], [address] . tel:[phone] [facility], [address] [place], [place], [id number], tel:[phone] [facility] No Information 9 Dave Mahmood. [address] [place] [address], [id number], [place]. tel:[phone] Family History Family Member Type Diagnosis Age At Onset No Information Payers Payer name Insurance type Covered republican ID Authoriza tion(s) [facility] [id number] Social History Type Description Quantity Date Captured [...]
--- OUTSIDE RECORDS SUMMARY | 2024-04-21 13:20 | XMS_ITS | Encounter Summary ---
Author Organization [facility] Address [address] [place] [address] Care Team Providers Care Merchant Tailor Name Role Phone Unavailable Primary Care Provider Unavailabl e Reason for Visit * Reason Comments WEIGHT LOSS Encounter Details Date Type Department Care Team (Late st Contact Info) Description 02/15/2024 Telephone [facility] [address] [place] [address] Ashely El, RN WEIGHT LOSS Social History [...]
--- OUTSIDE RECORDS SUMMARY | 2024-04-21 13:20 | XMS_ITS | Continuity of Care Document ---
Author Organization [facility] Address [address] [place] [address] Phone Care Team Providers Care Vamp Maker Name Role Phone Triston TRENT, PhD, Fabio Unavailable Unavai lable Allergies, Adverse Reactions, Alerts Substance Reaction Status Criticality Sulfa (Sulfonamide Antibiotics) Active No Information Penicillins Hives, Dermatitis Active No Informa tion Procedures Procedure Date Office/Outpatient Visit,[facility], [facility] 2023 Advance Directives Directive Yes / No Effective Date File Name No Information Encounters Encounter Description Practice Location Reason(s) For Visit Diagnoses Date Provider Providers Copied on Encounter [facility], [address], [place], [place], [id number], [place] tel:[phone] No Information Triston Mccarthy. [facility] [place], [address] [place] [address] [address], [place], [address], [place]. tel:[phone] Office/Outpat ient Visit,[facility], [address], [place], [place], [id number], [place] tel:[phone] [facility] [place] L4 fracture, initial encounter for closed fracture Kev Pfeiffer. [facility], [address] [place] [address] [address], [place], [address], [place]. tel:[phone] Referring Provider: Marli Sanders, [address], [address]. tel:[phone] Family History Family Member Type Diagnosis Age At Onset Father Problem (finding) Cancer, unknown type Payers Payer name Insurance type Covered democrat ID Viet dillon(s) [facility] [id number] Social History Type Description Quantity Date Captured [...]
--- OUTSIDE RECORDS SUMMARY | 2024-04-21 13:20 | XMS_ITS | Continuity of Care Document ---
Author Organization [facility] Address [address] [place] [address] Phone Care Team Providers Care Assistant Fitness Manager Name Role Phone Timoteo Acosta D.O. Unavailable [...] on Encounter [facility], [address] [place] [address], [id number], tel:[phone] [facility] No Information Dave Mahmood. [address] [place] [address], [id number], [place]. tel:[phone] [facility], [address] [place] [address], [id number], [place] tel:[phone] [facility] No Information Dave Mahmood. [address] [place] [address], [id number], [place]. tel:[phone] Referring Provider: Cherelle Borja [facility] [address], [place], [address]. tel:[phone] [facility], [address] [place] [address], [id number], [place] tel:[phone] [facility] No Information Dave Mahmood. [address] [place] [address], [id number], [place]. tel:[phone] Referring Provider: Cherelle Borja [facility] [address], [place], [address]. tel:[phone] OFFICE/OUTPATI ENT VISIT, EST [facility], [address] [place] [address], [id number], [place] tel:[phone] [facility] decreased vision (chief complaint) PCO-OSDrusen (degenerative ) of macula, left eye Dave Mahmood. [address] [place] [address], [id number], [place]. tel:[phone] Referring Provider: Cherelle Borja [facility] [address], [place], [address]. tel:[phone] [facility], [address] [place] [address], [id number], tel:[phone] [facility] No Information Dave Mahmood. [address] [place] [address], [id number], . tel:[phone] Referring Provider: Timoteo Zhao, [address] [place] [address], [id number]. tel:[phone] [facility], [address] [place] [address], [id number], tel:[phone] [facility] No Information Dave Mahmood. [address] [place] [address], [id number], [place]. tel:[phone] Referring Provider: Timoteo Zhao, [address] [place] [address], [address] [place] [address]. tel:[phone] OFFICE/OUTPATI ENT VISIT, [facility], [address] [place] [address], [address] [place] [address], tel:[phone] [facility] blurry vision (chief complaint) Cat-combined- ODCat-Pseudop hakia Dave Mahmood. [address] [place] [address], [id number], [place]. tel:[phone] Referring Provider: Timoteo Zhao, [address] [place] [address], [address] [place] [address]. tel:[phone] [facility], [address] [place] [address], [id number], [place] tel:[phone] [facility] No Information Dave Mahmood. [address] [place] [address], [id number], [place]. tel:[phone] Referring Provider: Timoteo Zhao, [address] [place] [address], [id number]. tel:[phone] [facility], [address] [place] [address], [id number], tel:[phone] [facility] No Information Dave Mahmood. [address] [place] [address], [id number], [place]. tel:[phone] Referring Provider: Timoteo Zhao, [address] [place] [address], [address]. tel:[phone] [facility], [address] [place] [address], [id number], tel:[phone] [facility] No Information Dave Mahmood. [address] [place] [address], [id number], [place]. tel:[phone] Referring Provider: Timoteo Zhao, [address] [place] [address], [id number]. tel:[phone] [facility], [address] [place] [address], [id number], tel:[phone] [facility] No Information Dave Mahmood. [address] [place] [address], [id number], [place]. tel:[phone] Referring Provider: [facility] [address], [place], [address]. tel:[phone] OFFICE/OUTPATI ENT VISIT, [facility], [address] [place] [address], [id number], [place] tel:[phone] [facility] 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 [address] [place] [address], [id number], [place]. tel:[phone] Referring Provider: Cherelle Borja [facility] [address], [place], [address]. tel:[phone] [facility], [address] [place] [address], [id number], [place] tel:[phone] [facility] No Information Dave Mahmood. [address] [place], [place], [id number], . tel:[phone] Referring Provider: Timoteo Zhao, [address] [place], [address]. tel:[phone] Family History Family Member Type Diagnosis Age At Onset No Information Payers Payer name Insurance type Covered libertarian ID Viet dillon(s) [facility] [id number] Social History Type Description Quantity Date Captured [...]
--- OUTSIDE RECORDS SUMMARY | 2024-04-21 13:20 | XMS_ITS | Clinical Summary ---
Author Organization [facility] Address [address] [place] [address] Care Team Providers Care Fire Control Mechanic Name Role Phone Unavailable Primary Care Provider Unavailabl e Source Comments You are receiving this document as you are listed as the primary care provider,follow-up provider, or the patient has been referred to you for consultation.This is in compliance with the Medicare and[facility] Cent[facility]aid EHR Incentive Program,which states Providers who transition their patient to another setting of careor provider of care or refers their patient to another provider of care shouldprovide summary care record for each transition of care or referral. [employer] [facility] FacilityA[facility] Right Allergies Active Allergy Reactions Criticality Noted Date [...] Type Department Care Team Description 02/15/2024 Telephone [facility] [address] [place] [address] Ashely El, RN WEIGHT LOSS [...] (Preventive Services) 1945 Adult Preventive Visit 1962 RSV (1 [...] on patient's age to complete this topic Infant RSV Aged Out No longer eligi ble based on patient's age to complete this topic MCV4 Aged Out No longer eligi ble based on patient's age to complete this topic [address] [facility] [place] [address]
--- OUTSIDE RECORDS SUMMARY | 2024-04-21 13:20 | XMS_ITS | Encounter Summary ---
Author Organization [facility] Address [address] [place] [address] Care Team Providers Care Refrigerator Car Icer Name Role Phone Unavailable Primary Care Provider Unavailabl e Reason for Referral * MRI/CAT/PET Scan (Routine) - Closed Specialty Diagnoses / Procedures Referred By Malinda wan Referred To Contact Radiology Diagnoses Parkinsonism Unspecified (HCC) Procedures MR Brain without and with IV Contrast Vic Mae M.D. [address] [place] [address] [facility] Region Referral ID Status Reason Start Date Expiration Date Visits Re quested Visits Authorized [id number] Closed 02/23/2024 02/22/2025 1 1 Reason for Visit * Reason Comments Parkinson's Disease * Outpatient (Routine) - Closed Specialty Diagnoses / Procedures Referred By Malinda wan Referred To Contact Neurology Diagnoses Parkinsonism Unspecified (HCC) Cameron Poe M.D., M.P.H. [address] [place] [address] [facility] Region Referral ID Status Reason Start Date Expiration Date Visits Re quested Visits Authorized [id number] Closed 01/05/2023 01/05/2024 1 1 Encounter Details Date Type Department Care Team (Latest Contact Info) Description 02/23/2024 10:15 AM CDT Comprehensive Visit Department of Neurology in [place], [place] [address] [place] [address] Vic Mae M.D. 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 [...]
== END 2024-04-18 12:12 | disposition home or self-care (01) ==
LOC: NFLDREF 04-21 13:05
PROVIDERS: PCP Family Medicine; Referring Provider Family Medicine; Visit Provider Family Medicine
DX: M25.511 Pain in right shoulder (principal); Z79.01 Long term (current) use of anticoagulants
CPT/HCPCS: 85610

== ENCOUNTER 2024-04-26 09:00 | Outpatient (RCR) | payer BC, SELFPAY ==
--- NOTE | 2024-03-27 15:04 | PT.OPEX ---
PT [facility] Outpatient Eval PT [facility] Outpatient Eval Start: 03/27/24 11:06 Freq: Status: Active Protocol: Document 03/27/24 11:06 CRP (Rec: 03/27/24 15:03 CRP [id number]) E-signed By Winston Gallardo PT Physical Therapy Outpatient Evaluation Insurance Information Recert Due Date 06/25/24 Insurance Name [employer] Medical Diagnosis Low back pain Referring MD Dr Sauceda Subjective Subjective December 2023 had spontaneous onset of LBP. Found to have compression fractures L4-L5. Pain was severe at first. Overall, the severe pain is much less. Was needing assistance to stand and walk and now can move independently with 4WW. Currently his mornings are the most sore and stiff. As the day progresses he deals more with aching pain. Can have times that the pain is not really much of an issue. Pain is not waking him up at night. Parkinson's Pain Comments 09/18 Current Work Status Retired Objective Other/Pertinent Objective Posture: Forward lean about 10 degrees Trunk ROM: Flex 20 deg, Ext - unable to get to neutral by about 5 degrees, bilat SB melani decrease with L low back pain during L SB, trunk Rotation ROM shows melani decrease bilat Functional mobility: Sit<>stand - needs to use UEs Sit<>supine - Slow guarded movement with SBA Gait - ambulates with 4WW. Slow short step lengths. Poor single leg balance. Poor tandem balance. Functional Test Performed & Score Tinetti Balance Score 07/08 Assessment Assessment/Impression Pt presents to the clinic with past hx of L sided LBP that began after compression fractures December of 2023. Pts current sxs appear related to lumbar spine DDD/DJD, pain sensitivity post lumbar compression fracture, poor lumbopelvic motor control, loss of trunk and LE ROM as well as increased rigidity secondary to Parkinson's. Skilled PT is necessary to incorporate ther ex, nm samantha, manual therapy, balance training and pt education to decrease pain, improve mobility and decrease his risk for falls. Primary Functional Limitations Standing Supine<>sit Walking Self cares Plan of Care Rehabilitation Potential Good Physical Therapy Goals 1. Pt will go supine<> sit without co in 8 weeks. 2. Pt will dress self and complete self cares with 75% decrease in pain in 10 weeks. 3. Pt will walk as needed throughout residence as well as get/to and from dinner table with 90% decrease in pain in 12 weeks. Coordination/Communication With Referral Source Treatment Plan/Direct Interventions Gait Training,Manual Therapy, Neuromuscular Re-ed,Self-Care/ Home Management,Therapeutic Activities,Therapeutic Exercises Frequency/Duration 1x/wk for 12 weeks Patient Will Be Discharged From Therapy Completion of LTG(s),Skills Plateau,Independent w/HEP, Independently Progressing Evaluation Billing Untimed Code Treatment Minutes 40 Complexity High Certification Information Initial Certification Date 03/27/24 Ending Certification Date 06/25/24 Provider Signature Required Yes Provider Signature Shows Agreement With POC & Medical Necessity Physician NPI Number Write NPI# Here Physician Comment/Change : Physician Signature & Date Requested Please Sign/Date Here
== END 2024-08-24 23:59 | disposition home or self-care (01) ==
PROVIDERS: PCP Family Medicine; Visit Provider Family Medicine
DX: M54.50 Low back pain, unspecified (principal); Z51.89 Encounter for other specified aftercare
CPT/HCPCS: 97110; 97163

== ENCOUNTER 2024-04-27 08:56 | Outpatient (CLI) | payer BC, SELFPAY ==
--- NOTE | 2024-04-27 09:00 | CRLHL7_ITS ---
For Patients: As a result of the Century Cures Act, medical imaging exams and procedure reports are released immediately into your electronic medical record. You may view this report before your referring provider. If you have questions, please contact your health care provider. EXAM: CT OF THE RIGHT SHOULDER, WITHOUT CONTRAST CLINICAL INDICATION: Shoulder pain following fall. Abnormal x-ray. COMPARISON PLAIN FILMS: 04/18/2024. COMPARISON CROSS-SECTIONAL IMAGING STUDIES: None. TECHNICAL: CT of the shoulder with axial images. Sagittal oblique and coronal oblique images were created. FINDINGS: OSSEOUS STRUCTURES: General: Osteopenia. Humerus: No fracture or osseous lesion. Glenoid: No fracture including the inferior glenoid. No osseous lesion. Acromion, Scapular body, Clavicle and Ribs: No fracture or osseous lesion. GLENOHUMERAL JOINT: Joint Fluid: Large glenohumeral joint effusion. Joint Space: Mild hypertrophic changes in the humeral head glenoid. No subchondral cystic changes. MUSCLES: Rotator Cuff: There is a tear of the subscapularis tendon with a full-thickness component. Mild atrophy of the subscapularis musculature. No retracted components of the supraspinatus or infraspinatus tendons. Other Muscles: No intramuscular hematoma. No muscle atrophy. CORACOACROMIAL ARCH: Morphology: Type 1 acromion. Mild lateral downsloping. No subacromial spur. Acromiohumeral Interval: Normal. Coracohumeral Interval: Normal. Bursa: Fluid in the subacromial subdeltoid bursa. ACROMIOCLAVICULAR JOINT: Mild arthropathy. SOFT TISSUES: No soft tissue edema, fluid collection or hematoma. IMPRESSION: 1. No fractures including the glenoid. 2. Tear of the subscapularis tendon with a full-thickness component. Mild atrophy of the subscapularis musculature. 3. Large glenohumeral joint effusion and fluid in the subacromial subdeltoid bursa. 4. Osteopenia. 5. Mild lateral downsloping of the acromion. 6. Mild arthropathy of the acromioclavicular joint. Please note that all CT scans at this facility use dose modulation, iterative reconstruction, and/or weight-based dosing when appropriate to reduce radiation dose to as low as reasonably achievable. Dictated by Vic Goldman MD @ 04/27/2024 12:47:59 PM (Electronically Signed)
== END 2024-04-27 08:57 | disposition home or self-care (01) ==
LOC: CT 08:57
PROVIDERS: PCP Family Medicine; Visit Provider Family Medicine
DX: M25.511 Pain in right shoulder (principal); S46.911A Strain of unspecified muscle, fascia and tendon at shoulder and upper arm level, right arm, initial encounter; M25.411 Effusion, right shoulder; M85.811 Other specified disorders of bone density and structure, right shoulder; R93.89 Abnormal findings on diagnostic imaging of other specified body structures; W19.XXXA Unspecified fall, initial encounter
CPT/HCPCS: 73200

== ENCOUNTER 2024-05-18 20:27 | Outpatient (REF) | payer BC, SELFPAY ==
--- OUTSIDE RECORDS SUMMARY | 2024-05-18 20:35 | XMS_ITS | Encounter Summary ---
Author Organization [employer] Address [address] [place] [address] Care Team Providers Care Mail Carrier Technician Name Role Phone Jamal CRALISLE DO, Robert William Primary Care Provide r Unavailable Desiree Patrick MD Unavailable Farrah Nicole APRN,NUT ROASTER Unavailable Bry Echevarria MD Unavailable Jmaal CARLISLE DO, Robert William Unavailable Unav Stephani Diaz MD Primary Care Provider Shruti Vergara RN Unavailable Unavailable Bianka Loera CNP Primary Care Provider [phone] Desiree Patrick MD Primary Care P rovider Encounter Details Date Type Department Care Team (Late st Contact Info) Description 09/07/2017 Historical Conversion [facility] Family Medicine [address] [place] [address] Casey Berry II, DO Social History Tobacco [...] Comments Blood Pressure 144/85 09/07/2017 12:00 AM BILLING SPEC Pulse - - Temperature - - Respiratory Rate - - Oxygen Saturation - - Inhaled Oxygen Concentration - - Weight 94.3 kg (207 lb 14.3 oz) 018 12:00 AM BILLING SPEC Height 185.5 cm (6' 1.03) 09/07/2017 1 2:00 AM BILLING SPEC Body Mass Index 27.4 09/07/2017 12:00 AM BILLING SPEC documented in this encounter Functional Status Functional [...] on filedocumented in this encounter Care Teams Mail Carrier Technician Relationship Specialty Start Date End Date Casey Berry II, DO PCP - General 11/22/06 08/17/19 Stephani Aleman MD PCP - General Family Medicine 08/18/19 09/16/20 Bianka Loera CNP [address] [facility] [address] [place] [address] PCP - General Nurse Practitioner Family 09/17/2001/10 [place] [address] [place] [address] PCP - General Electrophysiology 02/23/22 03/09/22 Desiree Patrick MD [address] [place] [address] 08/09/17 Farrah Nicole APRN,NUT ROASTER [address] [place] [address] 08/09/17 Bry Echevarria MD [address] [place] [address] [place] [address] 08/09/17 Casey Berry II, DO 08/09/17 Shruti Vergara RN RN Registered Nurse 08/27/20 documented as of this encounter Additional Source Comments PLEASE NOTE: Replies to this message will not be received.[facility] and [facility]
--- OUTSIDE RECORDS SUMMARY | 2024-05-18 20:35 | XMS_ITS | Encounter Summary ---
Author Organization [employer] Address [address] [place] [address] Care Team Providers Care Support Technician Name Role Phone Jamal CARLISLE DO, Robert William Primary Care Provide r Unavailable Desiree Patrick MD Unavailable Farrah Nicole APRN,SUPERVISOR ROLLING ROOM Unavailable Bry Echevarria MD Unavailable Jamal CARLISLE DO, Robert William Unavailable Unav Stephani Diaz MD Primary Care Provider Shruti Vergara RN Unavailable Unavailable Bianka Loera CNP Primary Care Provider Desiree Patrick MD Primary Care P rovider Encounter Details Date Type Department Care Team (Late st Contact Info) Description 10/18/2017 Historical Conversion [facility] Family Medicine [address] [place] [phone] Casey Berry II, DO Social History Tobacco [...] Body Mass Index 27.09 09/07/2017 12:00 AM FLARE BREAKER documented in this encounter Functional Status Functional [...] on filedocumented in this encounter Care Teams Support Technician Relationship Specialty Start Date End Date Casey Berry II, DO PCP - General 11/22/06 08/17/19 Stephani Aleman MD PCP - General Family Medicine 08/18/19 09/16/20 Bianka Loera CNP [address] [facility] [address] [place] [phone] PCP - General Nurse Practitioner Family 09/17/2001/10 [place] [address] [place] [address] PCP - General Electrophysiology 02/23/22 03/09/22 Desiree Patrick MD [address] [place] [address] 08/09/17 Farrah Nicole APRN,SUPERVISOR ROLLING ROOM [address] [place] [address] 08/09/17 Bry Echevarria MD [address] [place] [address] 08/09/17 Casey Berry II, DO 08/09/17 Shruti Vergara RN RN Registered Nurse 08/27/20 documented as of this encounter Additional Source Comments PLEASE NOTE: Replies to this message will not be received.[facility] and [facility]
--- OUTSIDE RECORDS SUMMARY | 2024-05-18 20:35 | XMS_ITS | Encounter Summary ---
Author Organization [employer] Address [address] [place] [address] Care Team Providers Care Belt Maker Name Role Phone Jamal CARLISLE DO, Robert William Primary Care Provide r Unavailable Desiree Patrick MD Unavailable Farrah Nicole APRN,TICK SEWER Unavailable Bry Echevarria MD Unavailable Jamal CARLISLE DO, Robert William Unavailable Unav Stephani Diaz MD Primary Care Provider Shruti Vergara RN Unavailable Unavailable Bianka Loera CNP Primary Care Provider Desiree Patrick MD Primary Care P rovider Encounter Details Date Type Department Care Team (Late st Contact Info) Description 07/22/2018 Historical Conversion [facility] Family Medicine [address] [place] [address] Moon Maloney MD Social History Tobacco Use [...] Comments Blood Pressure 120/58 07/22/2018 12:00 AM PEDIATRIC GENETICIST Pulse - - Temperature - - Respiratory Rate - - Oxygen Saturation - - Inhaled Oxygen Concentration - - Weight 93.8 kg (206 lb 12.7 oz) 019 12:00 AM PEDIATRIC GENETICIST Height - - Body Mass Index 27.28 06/20/2018 8:23 AM PEDIATRIC GENETICIST documented in this encounter Functional Status Functional [...] on filedocumented in this encounter Care Teams Belt Maker Relationship Specialty Start Date End Date Casey Berry II, DO PCP - General 11/22/06 08/17/19 Stephani Aleman MD PCP - General Family Medicine 08/18/19 09/16/20 Bianka Loera CNP [address] [facility] [address] [place] [phone] PCP - General Nurse Practitioner Family 09/17/2001/10 [place] [address] [place] [address] PCP - General Electrophysiology 02/23/22 03/09/22 Desiree Patrick MD [address] [place] [address] 08/09/17 Farrah Nicole APRN,TICK SEWER [address] [place] [address] 08/09/17 Bry Echevarria MD [address] [place] [address] 08/09/17 Casey Beryr II, DO 08/09/17 Shruti Vergara RN RN Registered Nurse 08/27/20 documented as of this encounter Additional Source Comments PLEASE NOTE: Replies to this message will not be received.[facility] and [facility]
--- OUTSIDE RECORDS SUMMARY | 2024-05-18 20:35 | XMS_ITS | Encounter Summary ---
Author Organization [employer] Address [address] [place] [address] Care Team Providers Care Job Placement Officer Name Role Phone Jamal CARLISLE DO, Robert William Primary Care Provide r Unavailable Desiree Patrick MD Unavailable Farrah Nicole APRN,FIRST RESPONDER Unavailable Bry Echevarria MD Unavailable [phone] Jamal CARLISLE DO, Robert William Unavailable Unav Stephani Diaz MD Primary Care Provider Shruti Vergara RN Unavailable Unavailable Bianka Loera CNP Primary Care Provider Desiree Patrick MD Primary Care P rovider Encounter Details Date Type Department Care Team (Late st Contact Info) Description 06/23/2018 Historical Conversion [facility] Family Medicine [address] [place] [address] Moon Maloney MD Social History Tobacco Use [...] Comments Blood Pressure 120/62 06/23/2018 12:00 AM SUPERVISOR PLASTERING Pulse - - Temperature - - Respiratory Rate - - Oxygen Saturation - - Inhaled Oxygen Concentration - - Weight 93.5 kg (206 lb 2.1 oz) 06/23/2018 12:00 AM SUPERVISOR PLASTERING Height - - Body Mass Index 27.2 06/20/2018 8:23 AM SUPERVISOR PLASTERING documented in this encounter Functional Status Functional [...] on filedocumented in this encounter Care Teams Job Placement Officer Relationship Specialty Start Date End Date Casey Berry II, DO PCP - General 11/22/06 08/17/19 Stephani Aleman MD PCP - General Family Medicine 08/18/19 09/16/20 Bianka Loera CNP [address] [facility] [address] [place] [phone] PCP - General Nurse Practitioner Family 09/17/2001/10 [place] [address] [place] [phone] PCP - General Electrophysiology 02/23/22 03/09/22 Desiree Patrick MD [address] [place] [place] [address] 08/09/17 Farrah Nicole APRN,FIRST RESPONDER [address] [place] [place] [address] 08/09/17 Bry Echevarria MD [address] [place] [address] 08/09/17 Casey Berry II, DO 08/09/17 Shruti Vergara RN RN Registered Nurse 08/27/20 documented as of this encounter Additional Source Comments PLEASE NOTE: Replies to this message will not be received.[facility] and [facility]
--- OUTSIDE RECORDS SUMMARY | 2024-05-18 20:35 | XMS_ITS | Clinical Summary ---
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 More than 4 times per year [...] and heating? Not hard at all 04/04/2021 [facility] - Occupational [...] Master's degree (e.g., MA, MS, [place], MEd, PLUMBER APPRENTICE, ROHIT) 08/19/2020 Sex and Gender Information Value [...] Date Last Done Comments Depression Screening 1957 Varicella Zoster Sequential (2 of 3) 03/25/2010 01/28/2010 Respiratory Syncytial Virus (RSV) Vaccine (1 - 1-dose 75+ series) 11/23/2019 DTaP/Tdap/Td Vaccines (2 - Td or Tdap) [...] HEPATITIS C AB Routine 08/26/2021 10:09 AM SECONDARY CONNECTOR ARMATURE Need for hepatitis C screening test COLONOSCOPY Routine 02/27/2020 8:05 AM CDT LIPID PANEL Routine 08/18/2019 9:23 AM SECONDARY CONNECTOR ARMATURE Screening for lipid disorders from Last 3 Months or Most Recently Relevant to Health Maintenance Results * (ABNORMAL) HEPATITIS C AB (08/26/2021 10:09 AM SECONDARY CONNECTOR ARMATURE) HCV Ab Reactive( A) Nonreactive 08/26/2021 7:41 PM SECONDARY CONNECTOR ARMATURE [facility] Comment: This is a reportable disease sent to the [place] [facility]. 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 State of associated disease not determined. Blood VENOUS BLOOD / Unknown Venipuncture / Unknown 08/26/2021 10:09 AM SECONDARY CONNECTOR ARMATURE 08/26/2021 10:09 AM SECONDARY CONNECTOR ARMATURE Bianka Lorea HARVESTING CONTRACTOR LAB SEROLOGY ORDERAB LES [facility] [address] [place] [address] * COLONOSCOPY (02/27/2020 8:05 AM CDT) 02/27/2020 8:05 AM CDT Narrative [facility] - 02/27/2020 9:20 AM CDT [facility] Patient Name: Rohan Carroll Procedure Date: 02/27/2020 8:05 AM Date of : 1945 Admit Type: Outpatient Age: 74 Room: [facility] Gender: Male Note Status: Finalized Attending [...] of the bowel preparation was ?excellent. The [id number] was introduced through the anus ?and advanced [...] 8:05 AM Stephani Aleman MD GI PROCEDURES [facility] * (ABNORMAL) LIPID PANEL (08/18/2019 9:23 AM SECONDARY CONNECTOR ARMATURE) Cholesterol 96 0 - 200 mg/dL 08/18/2019 7:32 PM SECONDARY CONNECTOR ARMATURE [facility] Triglycerides 65 30 - 150 mg/dL 08/18/2019 7:32 PM [facility] Cholesterol, LDL (Calculated) 45 0 - 159 mg/dL 08/18/2019 7:32 PM [facility] Cholesterol, HDL 38(L) >40 mg/dL 08/18/19 20 7:32 PM [facility] Cholesterol, vLDL 13 mg/dL 020 7:32 PM [facility] Blood VENOUS BLOOD SPECIMEN / Unknown Venipuncture / Unknown 08/18/2019 9:23 AM SECONDARY CONNECTOR ARMATURE 08/18/2019 9:23 AM SECONDARY CONNECTOR ARMATURE Stephani Aleman MD LAB CHEMISTRY ORDERA BLES [facility] [address] [place] [address] from Last 3 Months or Most Recently Relevant to Health Maintenance Advance Directives Documents on File Type Date Recorded Patient Web Operations Administrator Expl anation Advanced Directives 08/23/2014 3:05 PM [facility] * Full Code (Latest Code Status on File) Date Activated Date Inactivated Comments 06/21/2017 3:50 PM 06/24/2017 4:37 PM * Full Code Date Activated Date Inactivated Comments 10/19/2016 4:45 PM 10/20/2016 8:57 PM * Full Code Date Activated Date Inactivated Comments 11/15/2015 11:16 PM 11/16/2015 11:46 AM Care Teams Telephone Station Installer Relationship Specialty Start Date End Date Desiree Patrick MD [address] [place] [address] 08/09/17 Farrah Nicole APRN,MICROBIOLOGY LAB MANAGER [address] [place] [address] 08/09/17 Bry Echevarria MD [address] [place] [address] [place] [address] 08/09/17 Casey Berry II, DO 08/09/17 Shruti Vergara RN RN Registered Nurse 08/27/20 Additional Source Comments PLEASE NOTE: Replies to this message will not be received.[facility]
--- OUTSIDE RECORDS SUMMARY | 2024-05-18 20:35 | XMS_ITS | Encounter Summary ---
Author Organization [employer] Address [address] [place] [address] Care Team Providers Care Contract Processor Name Role Phone Jamal CARLISLE DO, Robert William Primary Care Provide r Unavailable Desiree Patrick MD Unavailable Farrah Nicole APRN,LINE PATROLLER Unavailable Bry Echevarria MD Unavailable Jamal CARLISLE DO, Robert William Unavailable Unav Stephani Diaz MD Primary Care Provider Shruti Vergara RN Unavailable Unavailable Bianka Loera CNP Primary Care Provider [phone] Desiree Patrick MD Primary Care P rovider Encounter Details Date Type Department Care Team (Late st Contact Info) Description 09/19/2018 Historical Conversion [facility] Family Medicine [address] [place] [address] Trish Barone, PT Social History Tobacco Use [...] by:Trish Barone PT Oct 12 2018 5:27PM CLINICAL TEAM LEAD AMENDMENTS: 1. Patient received 4 feet of green theraband on this date of service. Electronically signed by:Trish Barone PT Oct 12 2018 5:28PM CLINICAL TEAM LEAD * Trish Barone, PT - 10/03/2018 12:00 [...] per day with the dogs. He attends [employer] with his 2 times a week. OBJECTIVE: [...] by:Trish Barone PT Oct 03 2018 1:23PM CLINICAL TEAM LEAD * Trish Barone, PT - 09/19/2018 12:00 AM CDT CRISTIAN BLEDSOE : 1945 HX: [id number] DOS: 09/19/2018 REFERRING PROVIDER: Casey Berry D.O. 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 He is currently [...] PATIENT RECEIVED: Patient received 30 minutes of [id number]-[id number] evaluation with three or more comorbidities and three or more elements addressed. Clinical presentation is evolving and clinical complexity is moderate. Patient also received canalith repositioning maneuvers on this date. Trish Barone, PT, [place] #[id number] Electronically signed by:Trish Barone PT Sep 26 2018 8:37AM CLINICAL TEAM LEAD documented in this encounter Plan of Treatment Not on file documented as of this encounter Visit Diagnoses Not on filedocumented in this encounter Care Teams Contract Processor Relationship Specialty Start Date End Date Casey Berry II, DO PCP - General 11/22/06 08/17/19 Stephani Aleman MD PCP - General Family Medicine 08/18/19 09/16/20 Bianka Loera CNP [address] [place] [address] [address] [place] [phone] PCP - General Nurse Practitioner Family 09/17/2001/10 Desiree Patrick MD [address] [place] [address] PCP - General Electrophysiology 02/23/22 03/09/22 Desiree Patrick MD [address] [place] [address] 08/09/17 Farrah Nicole APRN,LINE PATROLLER [address] [place] [address] 08/09/17 Bry Echevarria MD [facility] [place] [address] 08/09/17 Casey Berry II, DO 08/09/17 Shruti Vergara RN RN Registered Nurse 08/27/20 documented as of this encounter Additional Source Comments PLEASE NOTE: Replies to this message will not be received.[facility] and [facility]
--- OUTSIDE RECORDS SUMMARY | 2024-05-18 20:35 | XMS_ITS | Encounter Summary ---
Author Organization [employer] Address [address] [place] [address] Care Team Providers Care Balloon Design Printer Name Role Phone Jamal CARLISLE DO, Robert William Primary Care Provide r Unavailable Desiree Patrick MD Unavailable Farrah Nicole APRN,DIRECTOR PROFESSIONAL SERVICES Unavailable [phone] Bry Echevarria MD Unavailable Jamal CARLISLE DO, Robert William Unavailable Unav Stephani Diaz MD Primary Care Provider Shruti Vergara RN Unavailable Unavailable Bianka Loera CNP Primary Care Provider Desiree Patrick MD Primary Care P rovider Encounter Details Date Type Department Care Team (Late st Contact Info) Description 03/01/2018 Historical Conversion [facility] Family Medicine [address] [place] [address] Desiree Rubi PAC [address] [place] [address] Social History Tobacco Use Types [...] Body Mass Index 26.81 09/07/2017 12:00 AM SOLAR INSTALLER PV documented in this encounter Functional Status Functional [...] CDT UROLOGY CRISTIAN BLEDSOE : 1945 HX: [id number] DOS: 03/01/2018 HISTORY OF PRESENT ILLNESS: This [...] think he normally sees Farrah Jacobo APRN, DIRECTOR PROFESSIONAL SERVICES, at the [facility], so we will try to reach [...] above. ASSESSMENT: 1. 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 He [...] meantime we will check with Cardiology in [place] about the option of Viagra or Cialis [...] cc: Jose Winslow M.D./Radiation Oncology [facility] cc: Casey Berry D.O./[facility] cc: Moon Maloney M.D./[facility] Electronically signed by:Desiree Rubi PA-C Mar 04 2018 1:27PM SOLAR INSTALLER PV documented in this encounter Plan of Treatment Not on file documented as of this encounter Visit Diagnoses Not on filedocumented in this encounter Care Teams Balloon Design Printer Relationship Specialty Start Date End Date Casey Berry II, DO PCP - General 11/22/06 08/17/19 Stephani Aleman MD PCP - General Family Medicine 08/18/19 09/16/20 Bianka Loera CANVAS WORKER APPRENTICE [address] [place] [address] PCP - General Nurse Practitioner Family 09/17/20 712/31 Desiree Patrick MD [address] [place] [address] PCP - General Electrophysiology 02/23/22 03/09/22 Desiree Patrick MD [address] [place] [address] 08/09/17 Farrah iNcole APRN,DIRECTOR PROFESSIONAL SERVICES [address] [place] [address] 08/09/17 Bry Echevarria MD [facility] [place] [address] 08/09/17 Casey Berry II, DO 08/09/17 Shruti Vergara RN RN Registered Nurse 08/27/20 documented as of this encounter Additional Source Comments PLEASE NOTE: Replies to this message will not be received.[facility] and [facility]
--- OUTSIDE RECORDS SUMMARY | 2024-05-18 20:35 | XMS_ITS | Encounter Summary ---
Author Organization [employer] Address [address] [place] [address] Care Team Providers Care Rice Field Worker Name Role Phone Jamal CARLISLE DO, Robert William Primary Care Provide r Unavailable Desiree Patrick MD Unavailable Farrah Nicole APRN,OIL BURNER SERVICER AND INSTALLER Unavailable Bry Echevarria MD Unavailable Jamal CARLISLE DO, Robert William Unavailable Unav Stephani Diaz MD Primary Care Provider Shruti Vergara RN Unavailable Unavailable Bianka Loera CNP Primary Care Provider Desiree Patrick MD Primary Care P rovider Encounter Details Date Type Department Care Team (Late st Contact Info) Description 06/23/2018 Historical Conversion [facility] Family Medicine [address] [place] [phone] Moon Malonye MD Social History Tobacco Use [...] MD - 07/22/2018 12:00 AM CST UROLOGY [facility] CRISTIAN BLEDSOE : 1945 HX: [id number] DOS: 07/22/2018 SUBJECTIVE: Cristian saw me on [...] Moon Maloney M.D./la-15 cc: Casey Berry II, D.O./[facility] Electronically signed by:Moon Maloney M.D. Jul 27 2018 9:15AM LAW ENFORCEMENT DIRECTOR * Moon Maloney MD - 06/23/2018 12:00 AM CST UROLOGY CRISTIAN BLEDSOE : [id number] 06/23/2018 SUBJECTIVE: Cristian comes to see me [...] short-term ADT. He is not on any TELEPHONE SERVICE ADVISER. His most recent PSA was 0.051 so [...] air entry. Regular rate and rhythm without any murmurs, [...] Moon K. Gemar, M.D./mdh-14 cc: Dr. Kofi Navarro-[facility] Electronically signed by:Moon Maloney M.D. Jun 24 2018 12:40PM LAW ENFORCEMENT DIRECTOR documented in this encounter Plan of Treatment Not on file documented as of this encounter Visit Diagnoses Not on filedocumented in this encounter Care Teams Rice Field Worker Relationship Specialty Start Date End Date Casey Berry II, DO PCP - General 11/22/06 08/17/19 Stephani Aleman MD PCP - General Family Medicine 08/18/19 09/16/20 Bianka Loera CNP [address] [place] [phone] PCP - General Nurse Practitioner Family 09/17/2001/10 Desiree Patrick MD [address] [place] [address] PCP - General Electrophysiology 02/23/22 03/09/22 Desiree Patrick MD [address] [place] [address] 08/09/17 Farrah Nicole APRN,OIL BURNER SERVICER AND INSTALLER [address] [place] [address] 08/09/17 Bry Echevarria MD [facility] [place] [address] 08/09/17 Casey Berry II, DO 08/09/17 Shruti Vergara RN RN Registered Nurse 08/27/20 documented as of this encounter Additional Source Comments PLEASE NOTE: Replies to this message will not be received.[facility]
--- OUTSIDE RECORDS SUMMARY | 2024-05-18 20:35 | XMS_ITS | Encounter Summary ---
Author Organization [employer] Address [address] [place] [address] Care Team Providers Care Baseball Club Manager Name Role Phone Jamal CARLISLE DO, Robert William Primary Care Provide r Unavailable Desiree Patrick MD Unavailable Farrah Nicole APRN,FAMILY SUPPORT SPECIALIST Unavailable Bry Echevarria MD Unavailable Jamal CARLISLE DO, Robert William Unavailable Unav Stephani Diaz MD Primary Care Provider Shruti Vergara RN Unavailable Unavailable Bianak Loera CNP Primary Care Provider [phone] Desiree Patrick MD Primary Care P rovider Encounter Details Date Type Department Care Team (Late st Contact Info) Description 06/13/2018 Historical Conversion [facility] Family Medicine [address] [place] [id number] Social History Tobacco Use Types Packs/Day Years [...] of this encounter Progress Notes * [facility] - 11/02/2018 12:00 AM CDT Balance [...] week. Joan Everett PTA/Kassy Barone PT, MA #[id number] Electronically signed by:Joan Everett PTA Nov 02 2018 2:00PM SHOP MANAGER Build Master/Recorder Electronically signed by:Trish Barone PT Nov 07 2018 4:43PM SHOP MANAGER * [facility] - 10/26/2018 12:00 AM [...] by:Joan Everett PTA Oct 28 2018 7:51AM SHOP MANAGER Build Master/Recorder Electronically signed by:Trish Barone PT Oct 31 2018 7:01PM SHOP MANAGER * [facility] [place] - 09/19/2018 12:00 AM CDT PHYSICAL THERAPY STUDENT NOTE BALANCE EVALUATION CRISTIAN BLEDSOE : 1945 HX: [id number] DOS: 09/19/2018 REFERRING PROVIDER: Casey Berry D.O. 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 He is currently [...] PATIENT RECEIVED: Patient received 30 minutes of kqjz-uo-stpm evaluation with three or more comorbidities and three or more elements addressed. Clinical presentation is evolving and clinical complexity is moderate. Patient also received canalith repositioning maneuvers on this date. Lennox LEAHY/Trish Barone, PT #[id number] / lb-12 cc: Casey Berry D.O., [facility] Electronically signed by:Lennox Malagon Sep 20 2018 7:56PM SHOP MANAGER Co-author Electronically signed by:Lennox Malagon Sep 27 2018 8:39AM SHOP MANAGER Co-author Electronically signed by:Trish Barone PT Oct 02 2018 5:18PM SHOP MANAGER documented in this encounter Procedure Notes * [facility] - 10/26/2018 12:00 AM CDTAssociated Order(s): [...] by:Tiffani Carrero RN Oct 26 2018 4:16PM SHOP MANAGER * [facility] - 10/11/2018 12:00 AM CDTAssociated Order(s): ANTICOAGULATION [facility]tico[facility] Name: CRISTIAN BLEDSOE : 1945 DOS: 10/11/2018 [...] by:Tiffani Carrero RN Oct 11 2018 3:39PM SHOP MANAGER * [facility] - 09/07/2018 12:00 AM CSTAssociated Order(s): ANTICOAGULATION [facility] Name: CRISTIAN BLEDSOE : 1945 DOS: 09/07/2018 [...] by:Tiffani Carrero RN Sep 07 2018 3:31PM SHOP MANAGER * [facility] - 08/22/2018 12:00 AM CSTAssociated Order(s): ANTICOAGULATION Anticoagulation [facility] Name: CRISTIAN BLEDSOE : 1945 DOS: 08/22/2018 [...] by:Tiffani Carrero RN Aug 22 2018 2:48PM SHOP MANAGER * [facility] - 07/13/2018 12:00 AM CSTAssociated Order(s): ANTICOAGULATION [facility] Name: CRISTIAN BLEDSOE : 1945 DOS: 07/13/2018 [...] by:Tiffani Carrero RN Jul 13 2018 2:41PM SHOP MANAGER * [facility] - 06/13/2018 12:00 AM [...] Deborah Mandel RN; Jun 13 2018 12:37PM SHOP MANAGER documented in this encounter Plan of Treatment Not on file documented as of this encounter Procedures Procedure Name Priority Date/Time Associated Diagnosis Comments ANTICOAGULATION 10/26/2018 ANTICOAGULATION 10/11/2018 ANTICOAGULATION 09/07/2018 ANTICOAGULATION 08/22/2018 ANTICOAGULATION 07/13/2018 ANTICOAGULATION 06/13/2018 documented in this encounter Results * ANTICOAGULATION (10/26/2018) Narrative Procedure Note [facility] - 10/26/2018 12:00 AM CDT Name: [...] by:Tiffani Carrero RN Oct 26 2018 4:16PM SHOP MANAGER [facility] OTHER * ANTICOAGULATION (10/11/2018) Narrative Procedure Note [facility] - 10/11/2018 12:00 AM CDT [facility]ticoagulation [facility] Name: CRISTIAN BLEDSOE : 1945 DOS: 10/11/2018 [...] by:Tiffani Carrero RN Oct 11 2018 3:39PM SHOP MANAGER [facility] OTHER * ANTICOAGULATION (09/07/2018) Narrative Procedure Note [facility] - 09/07/2018 12:00 AM CST Anticoagulation [facility] Name: CRISTIAN BLEDSOE : 1945 DOS: 09/07/2018 [...] by:Tiffani Carrero RN Sep 07 2018 3:31PM SHOP MANAGER [facility] OTHER * ANTICOAGULATION (08/22/2018) Narrative Procedure Note [facility] - 08/22/2018 12:00 AM CST Anticoagulation [facility] Name: CRISTIAN BLEDSOE : 1945 DOS: 08/22/2018 [...] by:Tiffani Carrero RN Aug 22 2018 2:48PM SHOP MANAGER [facility] OTHER * ANTICOAGULATION (07/13/2018) Narrative Procedure Note [facility] - 07/13/2018 12:00 AM CST [facility]ticoagulation [facility] Name: CRISTIAN BLEDSOE : 1945 DOS: 07/13/2018 [...] by:Tiffani Carrero RN Jul 13 2018 2:41PM SHOP MANAGER [facility] OTHER * ANTICOAGULATION (06/13/2018) Narrative Procedure Note [facility] - 06/13/2018 12:00 AM CST ACC [...] Deborah Mandel RN; Jun 13 2018 12:37PM SHOP MANAGER Genericprovider [facility] OTHER documented in this encounter Visit Diagnoses Not on filedocumented in this encounter Care Teams Baseball Club Manager Relationship Specialty Start Date End Date Casey Berry II, DO PCP - General 11/22/06 08/17/19 Stephani Aleman MD PCP - General Family Medicine 08/18/19 09/16/20 Bianka Loera CNP [address] [place] [phone] PCP - General Nurse Practitioner Family 09/17/2001/10 Desiree Patrick MD [address] [place] [address] PCP - General Electrophysiology 02/23/22 03/09/22 Desiree Patrick MD [address] [place] [address] 08/09/17 Farrah Nicole APRN,FAMILY SUPPORT SPECIALIST [address] [place] [address] 08/09/17 Bry Echevarria MD [facility] [place] [address] 08/09/17 Casey Berry II DO 08/09/17 Srhuti Vergara, RN RN Registered Nurse 08/27/20 documented as of this encounter Additional Source Comments PLEASE NOTE: Replies to this message will not be received.[facility] and [facility]
--- OUTSIDE RECORDS SUMMARY | 2024-05-18 20:35 | XMS_ITS | Encounter Summary ---
Author Organization [employer] Address [address] [place] [address] Care Team Providers Care Forms Examiner Name Role Phone Jamal CARLISLE DO, Robert William Primary Care Provide r Unavailable Desiree Patrick MD Unavailable Farrah Nicole APRN,WASHATERIA ATTENDANT Unavailable Bry Echevarria MD Unavailable Jamal CARLISLE DO, Robert William Unavailable Unav Stephani Diaz MD Primary Care Provider Shruti Vergara RN Unavailable Unavailable Bianka Loera CNP Primary Care Provider [phone] Desiree Patrick MD Primary Care P rovider Encounter Details Date Type Department Care Team (Late st Contact Info) Description 09/08/2018 Historical Conversion [facility] Family Medicine [address] [place] [address] Casey Berry II, DO Social History Tobacco [...] Comments Blood Pressure 122/74 09/08/2018 12:00 AM HORTICULTURAL AGENT Pulse - - Temperature - - Respiratory Rate - - Oxygen Saturation - - Inhaled Oxygen Concentration - - Weight 92.8 kg (204 lb 9.7 oz) 09/08/2018 12:00 AM HORTICULTURAL AGENT Height 184 cm (6' 0.44) 09/08/2018 12:00 AM HORTICULTURAL AGENT Body Mass Index 27.41 09/08/2018 12:00 AM HORTICULTURAL AGENT documented in this encounter Functional Status [...] on filedocumented in this encounter Care Teams Forms Examiner Relationship Specialty Start Date End Date Casey Berry II, DO PCP - General 11/22/06 08/17/19 Stephani Aleman MD PCP - General Family Medicine 08/18/19 09/16/20 Bianka Loera CNP [address] [facility] [address] [place] [address] PCP - General Nurse Practitioner Family 09/17/2001/10 [place] [address] [place] [address] PCP - General Electrophysiology 02/23/22 03/09/22 Desiree Patrick MD [address] [facility] [place] [place] [address] 08/09/17 Farrah Nicole APRN,WASHATERIA ATTENDANT [address] [facility] [place] [address] 08/09/17 Bry Echevarria MD [address] [place] [address] [place] [address] 08/09/17 Casey Berry II, DO 08/09/17 Shruti Vergara RN RN Registered Nurse 08/27/20 documented as of this encounter Additional Source Comments PLEASE NOTE: Replies to this message will not be received.[facility] and [facility]
--- OUTSIDE RECORDS SUMMARY | 2024-05-18 20:35 | XMS_ITS | Encounter Summary ---
Author Organization [employer] Address [address] [place] [address] Care Team Providers Care Shoeblack Name Role Phone Jamal CARLISLE DO, Robert William Primary Care Provide r Unavailable Desiree Patrick MD Unavailable Farrah Nicole APRN,PHYSICIAN'S ASSISTANT Unavailable Bry Echevarria MD Unavailable Jamal CARLISLE DO, Robert William Unavailable Unav Stephani Diaz MD Primary Care Provider Shruti Vergara RN Unavailable Unavailable Bianka Loera CNP Primary Care Provider [phone] Desiree Patrick MD Primary Care P rovider Encounter Details Date Type Department Care Team (Late st Contact Info) Description 06/13/2018 Historical Conversion [facility] Family [facility] [address] [facility] [place] [address] Bry Echevarria MD [address] [place] [address] Social History Tobacco Use Types [...] Comments Blood Pressure 120/78 06/13/2018 12:00 AM RED CROSS EXECUTIVE DIRECTOR Pulse - - Temperature - - Respiratory Rate - - Oxygen Saturation - - Inhaled Oxygen Concentration - - Weight 93.8 kg (206 lb 12.7 oz) 018 12:00 AM RED CROSS EXECUTIVE DIRECTOR Height - - Body Mass Index 27.29 05/18/2018 8:54 AM RED CROSS EXECUTIVE DIRECTOR documented in this encounter Functional Status [...] on filedocumented in this encounter Care Teams Shoeblack Relationship Specialty Start Date End Date Casey Berry II, DO PCP - General 11/22/06 08/17/19 Stephani Aleman MD PCP - General Family Medicine 08/18/19 09/16/20 Bianka Loera CNP [address] [place] [address] [address] [place] [address] PCP - General Nurse Practitioner Family 09/17/2001/10 Desiree Patrick MD [address] [place] [address] PCP - General Electrophysiology 02/23/22 03/09/22 Desiree Patrick MD [address] [place] [address] 08/09/17 Farrah Nicole APRN,PHYSICIAN'S ASSISTANT [address] [place] [address] 08/09/17 Bry Echevarria MD [address] [place] [address] 08/09/17 Casey Berry II, DO 08/09/17 Shruti Vergara RN RN Registered Nurse 08/27/20 documented as of this encounter Additional Source Comments PLEASE NOTE: Replies to this message will not be received.[facility] and [facility]
--- OUTSIDE RECORDS SUMMARY | 2024-05-18 20:35 | XMS_ITS ---
Author Organization [employer] Address [address] [place] [address] Care Team Providers Care [facility] Name Role Phone Desiree Patrick MD Unavailable Farrah Nicole APRN,MIXER OPERATOR TABLETS Unavailable Bry Echevarria MD Unavailable [phone] Jamal CARLISLE DO, Robert William Unavailable Unav [...] 11/09/2018 Muscle tightness 11/09/2018 Bilateral foot-drop 11/09/2018 terminal gauger supervisor (current) use of anticoagulants 2018 Encounter for monitoring dofetilide therapy 06/11 Atrial fibrillation (HCC) 06/21/2017 Essential hypertension 10/21/2016 Thoracic ascending aortic aneurysm 06/11/2016 Overview: 4.2 x 4.[address] [facility] Atrial flutter 11/15/2015 Esophageal dysmotility Overview: uses Reglan on a PRN basis Hearing loss Overview: wears hearing aids Hepatitis C antibody test positive Overview: negative quant RNA Current Oncology Plans No current plan information found. Past Plans No past plan information found. Radiation Treatments * No radiation treatments are documented for this patient in [facility]. Treatments may have been administered in [...]
--- OUTSIDE RECORDS SUMMARY | 2024-05-18 20:35 | XMS_ITS | Encounter Summary ---
Author Organization [facility] [employer] [facility] Address [address] [place] [address] Care Team Providers Care Campus Chaplain Name Role Phone Jamal CARLISLE DO, Robert William Primary Care Provide r Unavailable Desiree Patrick MD Unavailable Farrah Nicole APRN,TRANSMISSION TESTER Unavailable Bry Echevarria MD Unavailable Jamal CARLISLE DO, Robert William Unavailable Unav Stephani Diaz MD Primary Care Provider Shruti Vergara RN Unavailable Unavailable Bianka Loera CNP Primary Care Provider Desiree Patrick MD Primary Care P rovider Encounter Details Date Type Department Care Team (Late st Contact Info) Description 02/06/2019 HIM Retail Shift Manager [facility] [address] [address] Rakesh Williamson Chi, MD Social History Tobacco [...] ADULT WITH OR WITHOUT CONTRAST PERFORMED BY: [place] [place] SITE: [place] [place] INTERPRETED BY: [facility] [place] TRANSTHORACIC ECHOCARDIOGRAM REPORT REFERRING DIAGNOSIS: Sleep [...] function. Note: This study was performed by [facility] [place]. Only the interpretation was performed at the [facility] [place]. Electronically signed Rakesh Williamson MD Grooming Assistant , 06:42 A A felipa/Doc#: [id number] cc: Antoine Fitzpatrick MD Adult Normal Value [...] Blood pressure: 139/86 mmHg Previous study: 01/06/2017 Sap Trainer: KRISTA documented in this encounter Plan of [...] - 02/06/2019 12:00 AM CDT PERFORMED BY: [place] [place] SITE: [place] [place] INTERPRETED BY: [facility] [place], [place] TRANSTHORACIC ECHOCARDIOGRAM REPORT REFERRING DIAGNOSIS: Sleep [...] function. Note: This study was performed by [employer] [place]. Only theinterpretation was performed at the [facility]. Electronically signed Rakesh Williamson MD Grooming Assistant , 06:42 A A felipa/Doc#: [id number] cc: Antoine Fitzpatrick MD Adult Normal Value [...] Blood pressure: 139/86 mmHg Previous study: 01/06/2017 Sap Trainer: KRISTA Antoine Fitzpatrick MD,PHD CAR [place] documented in this encounter Visit Diagnoses Not on filedocumented in this encounter Care Teams Campus Chaplain Relationship Specialty Start Date End Date Casey Berry II, DO PCP - General 11/22/06 08/17/19 Stephani Aleman MD PCP - General Family Medicine 2/7/20 3/8/21 Bianka Loera, ACID SUPERVISOR [address] [place] [phone] PCP - General Nurse Practitioner Family 09/17/20 712/31 Desiree Patrick MD [address] [place] [address] PCP - General Electrophysiology 02/23/22 03/09/22 Desiree Patrick MD [address] [place] [address] 08/09/17 Farrah Nicole APRN,TRANSMISSION TESTER [address] [place] [address] 08/09/17 Bry Echevarria MD [facility] [place] [phone] 08/09/17 Casey Berry II, DO 08/09/17 Shruti Vergara, RN RN Registered Nurse 08/27/20 documented as of this encounter Additional Source Comments PLEASE NOTE: Replies to this message will not be received.[facility] and [facility]
--- OUTSIDE RECORDS SUMMARY | 2024-05-18 20:35 | XMS_ITS | Referral Summary ---
Author Organization [employer] Address [address] [place] [address] Care Team Providers Care Home Sales Consultant Name Role Phone Desiree Patrick MD Unavailable Farrah Nicole APRN,MANAGED CARE NURSE Unavailable Bry Echevarria MD Unavailable [phone] Jamal CARLISLE DO, Robert William Unavailable Unav [...] ipratropium (ATROVENT) 21 mcg (0.03 %) nasal Wirt, Non-AerosolIndicatio ns:PND (post-nasal drip) 2 Sprays by [...] 5 mg oral TabletIndications:Pa roxysmal atrial fibrillation (HCC),roasterman (current) use of anticoagulants TAKE 1 TABLET [...] 11/09/2018 Muscle tightness 11/09/2018 Bilateral foot-drop 11/09/2018 halfway (current) use of anticoagulants 2018 Encounter for monitoring dofetilide therapy 06/11 Atrial fibrillation (HCC) 06/21/2017 Essential hypertension 10/21/2016 Thoracic ascending aortic aneurysm 06/11/2016 Overview: 4.2 x 4.[address] [facility] CT Atrial flutter 11/15/2015 [...] How often do you attend chur or jainism services? More than 4 times per year 04/04/2021 Do you belong to any clubs o r organizations such as religion groups, unions, fraternal or athletic groups, or [...] and heating? Not hard at all 04/04/2021 [facility] of Occupat ional Health - Occupational [...] place to sleep or slept in a jail (including now)? No 04/04/2021 Depression (PHQ-9) Answer Date Recorded Last PHQ-9 Score Not on file 08/27/2022 Thoughts of self harm Not at all 08/27/2022 Education Answer Date Recorded What is the highest level of school you have completed or the highest degree you have received? Master's degree (e.g., MA, MS, Mirlande, MEd, SHOT BAGGER, ROHIT) 08/19/2020 Sex and Gender Information Value [...] HEPATITIS C AB Routine 08/26/2021 10:09 AM ELECTRONICS SUPERVISOR Need for hepatitis C screening test COLONOSCOPY Routine 02/27/2020 8:05 AM CDT LIPID PANEL Routine 08/18/2019 9:23 AM ELECTRONICS SUPERVISOR Screening for lipid disorders from Last 3 Months or Most Recently Relevant to Health Maintenance Results * (ABNORMAL) HEPATITIS C AB (08/26/2021 10:09 AM ELECTRONICS SUPERVISOR) HCV Ab Reactive( A) Nonreactive 08/26/2021 7:41 PM ELECTRONICS SUPERVISOR [facility] Comment: This is a reportable disease sent to the [facility]. 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 State of associated disease not determined. Blood VENOUS BLOOD / Unknown Venipuncture / Unknown 08/26/2021 10:09 AM ELECTRONICS SUPERVISOR 08/26/2021 10:09 AM ELECTRONICS SUPERVISOR Bianka Loera [facility] SEROLOGY ORDERAB LES Performing Organization Address [facility] Co de Phone Number [facility] [address] [place] [address] * COLONOSCOPY (02/27/2020 8:05 AM CDT) 02/27/2020 8:05 AM CDT Narrative [facility] ENDO - 02/27/2020 9:20 AM CDT [facility] Patient Name: Rohan Carroll Procedure Date: [...] of the bowel preparation was ?excellent. The [id number] was introduced through the anus ?and advanced [...] 8:05 AM Stephani Aleman MD GI PROCEDURES [employer] ENDO * (ABNORMAL) LIPID PANEL (08/18/2019 9:23 AM ELECTRONICS SUPERVISOR) Cholesterol 96 0 - 200 mg/dL 08/18/2019 7:32 PM ELECTRONICS SUPERVISOR [facility] Triglycerides 65 30 - 150 mg/dL 08/18/2019 7:32 PM ELECTRONICS SUPERVISOR [facility] Cholesterol, LDL (Calculated) 45 0 - 159 mg/dL 08/18/2019 7:32 PM ELECTRONICS SUPERVISOR [facility] Cholesterol, HDL 38(L) >40 mg/dL 08/18/19 20 7:32 PM ELECTRONICS SUPERVISOR [facility] Cholesterol, vLDL 13 mg/dL 020 7:32 PM [facility] Blood VENOUS BLOOD SPECIMEN / Unknown Venipuncture / Unknown 08/18/2019 9:23 AM ELECTRONICS SUPERVISOR 08/18/2019 9:23 AM ELECTRONICS SUPERVISOR Stephani Aleman MD LAB CHEMISTRY ORDERA JOSH [facility] [employer] [facility] [address] [place], [place] [id number] from Last 3 Months or Most Recently Relevant to Health Maintenance Advance Directives Documents on File Type Date Recorded Patient Grounds Supervisor Expl anation Advanced Directives 08/23/2014 3:05 PM [facility] * Full Code (Latest Code Status on File) Date Activated Date Inactivated Comments 06/21/2017 3:50 PM 06/24/2017 4:37 PM * Full Code Date Activated Date Inactivated Comments 10/19/2016 4:45 PM 10/20/2016 8:57 PM * Full Code Date Activated Date Inactivated Comments 11/15/2015 11:16 PM 11/16/2015 11:46 AM Care Teams Home Sales Consultant Relationship Specialty Start Date End Date Desiree Patrick MD [address] [place] [phone] 08/09/17 Farrah Nicole APRN,MANAGED CARE NURSE [address] [place] [phone] 08/09/17 Bry Echevarria MD [address] [place] [phone] 08/09/17 Casey Berry II, DO 08/09/17 Shruti Vergara, RN RN Registered Nurse 08/27/20 Additional Source Comments PLEASE NOTE: Replies to this message will not be received.[facility]
--- OUTSIDE RECORDS SUMMARY | 2024-05-18 20:35 | XMS_ITS | Encounter Summary ---
Author Organization [facility] [employer] Address [address] [place] [address] Care Team Providers Care Transmission Line Engineer Name Role Phone Desiree Patrick MD Unavailable Farrah Nicole APRN, CNS Unavailable Bry Echevarria MD Unavailable Jamal CARLISLE DO, Robert William Unavailable Unav ailable Shruti Vergara RN Unavailable Unavailable Desiree Patrick MD Primary Care P rovider Encounter Details Date Type Department Care Team (Late st Contact Info) Description 02/25/[address] [address] Social History Tobacco Use Types [...] and heating? Not hard at all 04/04/2021 [facility] [place] of Occupat ional Health - Occupational Stress [...] Master's degree (e.g., MA, MS, Mirlande, MEd, HOTEL NIGHT AUDITOR, ROHIT) 08/19/2020 Sex and Gender Information Value [...] on filedocumented in this encounter Care Teams Transmission Line Engineer Relationship Specialty Start Date End Date Desiree Patrick MD [address] [place] [address] PCP - General Electrophysiology 02/23/22 03/09/22 Desiree Patrick MD [address] [place] [address] 08/09/17 Farrah Nicole APRN,DELIVERY ASSOCIATE [address] [place] [place] [address] 08/09/17 Bry Echevarria MD [address] [place] [address] 08/09/17 Casey Berry II, DO 08/09/17 Shruti Vergara RN RN Registered Nurse 08/27/20 documented as of this encounter Additional Source Comments PLEASE NOTE: Replies to this message will not be received.[facility] and [facility]
--- OUTSIDE RECORDS SUMMARY | 2024-05-18 20:35 | XMS_ITS | Encounter Summary ---
Author Organization [employer] Address [address] [place] [address] Care Team Providers Care Gravity Prospecting Operator Helper Name Role Phone Jamal CARLISLE DO, Robert William Primary Care Provide r Unavailable Desiree Patrick MD Unavailable Farrah Nicole APRN,BANQUET BARTENDER Unavailable Bry Echevarria MD Unavailable Jamal CARLISLE DO, Robert William Unavailable Unav Stephani Diaz MD Primary Care Provider [phone] Shruti Vergara RN Unavailable Unavailable Bianka Loera CNP Primary Care Provider Desiree Patrick MD Primary Care P rovider Encounter Details Date Type Department Care Team (Late st Contact Info) Description 06/13/2018 Historical Conversion [facility] Family [facility] [address] [facility] [place] [address] Bry Echevarria MD [address] [place] [address] Social History Tobacco Use Types [...] AM CST CRISTIAN BLEDSOE : 1945 HX: [id number] DOS: 06/13/2018 SUBJECTIVE: Patient is a 72-year-old [...] Jose Winslow in Radiation Oncology at the [facility]. He has not recently had cystoscopy. He [...] Prostate cancer, status post treatment with radiation. [place] to be under good control at this [...] later. Bry Echevarria M.D./ekg-6 cc: Yury Berry DO/[facility] Radha cc: Elder Maloney MD/[facility] Radha cc: Mare Rubi PA-C/[facility] Radha cc: Jose Winslow MD/[facility] Electronically signed by:Bry Echevarria M.D. Jun 16 2018 2:16PM INVESTIGATOR FRAUD documented in this encounter Plan of Treatment Not on file documented as of this encounter Visit Diagnoses Not on filedocumented in this encounter Care Teams Gravity Prospecting Operator Helper Relationship Specialty Start Date End Date Casey Berry II, DO PCP - General 11/22/06 08/17/19 Stephani Aleman MD PCP - General Family Medicine 08/18/19 09/16/20 Bianka Loera FAMILY NURSE PRACTITIONER [address] [place] [phone] PCP - General Nurse Practitioner Family 09/17/2001/10 Desiree Patrick MD [address] [place] [address] PCP - General Electrophysiology 02/23/22 03/09/22 Desiree Patrick MD [address] [place] [address] 08/09/17 Farrah Nicole, GIRLS SWIMMING COACH,BANQUET BARTENDER [address] [place] [address] 08/09/17 Bry Echevarria MD [address] [place] [place] [address] 08/09/17 Casey Berry II, DO 08/09/17 Shruti Vergara RN RN Registered Nurse 08/27/20 documented as of this encounter Additional Source Comments PLEASE NOTE: Replies to this message will not be received.[facility] and [facility]
--- OUTSIDE RECORDS SUMMARY | 2024-05-18 20:35 | XMS_ITS | Clinical Summary ---
Author Organization [employer] [facility] Address [place], [place] [address] Care Team Providers Care Retail Selling Floor Leader Name Role Phone Marli Sauceda MD Primary [...] Encounters Date Type Department Care Team Description 05/16/2024 Telephone [employer] [facility] [address] [place] [address] Kiya Gomes RN Medication Management (Tikosyn/) 04/20/2024 8:30 AM CDT Office Visit [facility] [address] [place] [address] Shyann Griggs MD 03/09/2024 Orders Only [facility] Scanner 1 scan: (1-Ord) [facility], 03/09/2024 03/09/2024 Orders Only [facility] Scanner 1 scan: (1-Ord) SINUS RHYTHM WITH MARKED SINUS ARRHYTHMIA, 03/09/2024 02/16/2024 1:00 PM CDT Ancillary Procedure [facility] [address] [place] [address] 02/16/2024 Travel from Last 3 Months Social History [...] CDT ECHOCARDIOGRAM CRISTIAN BLEDSOE ? Accession#: ?? [id number] : ?1945 78 years Study Date: ?? 02/16/2024 1:17:37 PM Gender: M ?BP: ? 116/68 mmHg Height: 185.00 cm ?BSA: ?2.10 m? ? ? Weight: 86.00 kg ? Tech: ? MSR ? Referring MD: SHYANN GRIGGS Site: ? [facility] Reading Location: Mobile OP Patient Location: Outpatient. [...] . This study was interpreted by an [facility] accredited facility. CC: HIM (med [facility]) [facility]. ??Final ?? Procedure Note Kofi Connolly MD - 02/16/2024 ECHOCARDIOGRAM CRISTIAN BLEDSOE : 1945 78 years Study Date: 02/16/2024 1:17:37 PM Gender: M BP: 116/68 mmHg Height: 185.00 cm BSA: 2.10 m? ? ? Weight: 86.00 kg Tech: MSR Referring MD: SHYANN GRIGGS Site: [facility] Reading Location: Mobile OP [...] interpreted by an [facility] accredited facility. CC: [facility] (med records) [facility]. Final Shyann Griggs MD ECHO ORD from Last 3 Months Care Teams Retail Selling Floor Leader Relationship Specialty Start Date End Date Marli Sauceda MD [address] [place] [address] PCP - General Family Practice 03/13/22
--- OUTSIDE RECORDS SUMMARY | 2024-05-18 20:35 | XMS_ITS | Encounter Summary ---
Author Organization [employer] Address [address] [place] [address] Care Team Providers Care Community Health Navigator Name Role Phone Jamal CARLISLE DO, Robert William Primary Care Provide r Unavailable Desiree Patrick MD Unavailable Farrah Nicole APRN,REACH TRUCK OPERATOR Unavailable Bry Echevarria MD Unavailable [phone] Jamal CARLISLE DO, Robert William Unavailable Unav Stephani Diaz MD Primary Care Provider Shruti Vergara RN Unavailable Unavailable Bianka Loera CNP Primary Care Provider Desiree Patrick MD Primary Care P rovider Encounter Details Date Type Department Care Team (Late st Contact Info) Description 09/08/2018 Historical Conversion [facility] Family Medicine [address] [place] [phone] Casey Berry II, DO Social History Tobacco [...] DAILY CBC; Status:Resulted - Requires Verification; Done: 71Clk9875 09:12AM Comprehensive Metabolic Panel; Status:Resulted - Requires Verification; Done: 11Jdo6154 09:12AM Lipid Panel; Status:Resulted - Requires Verification; Done: 08Sep2018 09:12AM Vitamin D Total [facility]; Status:Resulted - Requires Verification; Done: 08Sep2018 09:12AM [employer] Drawing Fee; Status:Complete; Done: 08Sep2018 Balance Center Consult Consult Only Evaluation and Treatment Status: Hold For - Required information Requested for: [id number] Phone Number to Contact Patient: : See chart to Provider, Practice or Agency: : [facility] Folate; Status:Resulted - Requires Verification; Done: [...] 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 HEALTH CARE MAINTENANCE: Colonoscopy in 2009, due in 2019. Current Meds 1. Dofetilide 250 MCG Oral Capsule; TAKE 1 CAPSULE EVERY 12 HOURS; Last Rx:[id number] Ordered 2. Jantoven 5 MG Oral Tablet; TAKE 1 1/2 TABLET BY MOUTH ON WEDNESDAYS, AND 1 TABLET BY MOUTH ALL OTHER DAYS OF THE WEEK DIRECTED; Therapy: 13Apr2018 to (Evaluate:28Sep2018) Requested for: 37Bou4131; Last Rx:[id number] Ordered 3. Lisinopril 10 MG Oral Tablet; TAKE ONE TABLET DAILY; Therapy: 18Oct2017 to Recorded 4. Metoclopramide HCl - 5 MG Oral Tablet; TAKE 1 TABLET BY MOUTH THREE TIMES DAILY WITH MEALS NEEDED; Therapy: 10Sep2014 to (Evaluate:80Wki4922) Requested for: 69Gou3602; Last Rx:[id number] Ordered 5. Oxybutynin Chloride ER 10 MG Oral Tablet Extended Release 24 Hour; TAKE 1 TABLET DAILY; Therapy: 34Xjk8637 to (Evaluate:45Ywa4838) Requested for: 10Llt9342; Last Rx:[id number] Ordered 6. Polyethylene Glycol 3350 Oral Powder; take 17 grams in 8 ounces of fluid once daily as needed for constipation; Therapy: 23Xnc7090 to (Evaluate:27May2018); Last Rx:[id number] Ordered 7. Sildenafil Citrate 100 MG Oral Tablet; Take 1/2-1 tab 1 hour before sexual activity; Therapy: 95Pfr8718 to (Last Rx:65Ptg2012) Requested for: 69Jsb3227 Ordered 8. Triamcinolone Acetonide 0.1 % External Lotion; APPLY 2-3 TIMES DAILY TO AFFECTED AREA(S); Therapy: 29Kev8356 to (Last Rx:15Hge8956) Requested for: 97Gix4691 Ordered Allergies 1. Penicillins 2. Sulfa Drugs [...] Prostate firm, no masses, nontender. Results/Data CBC 46Pky9047 09:12AM Jamal Casey FASTING Test Name Result [...] 0.9 L 1.0-4.7 Vitamin D Total [facility] 12Fcz1332 09:12 Casey Berry Test Name Result Flag Reference Vitamin D Total - [facility] 20.9 ng/ml L 30-100 Deficiency <10ng/mL Insufficiency 10-29 ng/mL Sufficiency 30-100 ng/mL Possible Toxicity >100 ng/mL TSH 36Kwx3581 09:12 Casey Berry FASTING Test Name Result Flag Reference TSH 1.670 uIU/ml 0.30-4.70 Vitamin B12 08Sep2018 09:12AM Casey Berry Test Name Result Flag Reference Vitamin B12 382 pg/ml 200-1000 Folate 32Ege8885 09:12AM Casey Berry Test Name Result Flag Reference Folate >20.0 ng/ml H 6.6-19.9 Signatures Casey Berry II, D.Veena/jaj-28 REVISED NOTE 09/12/2018/naomie Electronically signed by : Casey Berry DO; Sep 09 2018 11:14AM LOG CHIPPER OPERATOR Electronically signed by : Casey Berry DO; Sep 12 2018 9:09AM LOG CHIPPER OPERATOR documented in this encounter Plan of Treatment Not on file documented as of this encounter Visit Diagnoses Not on filedocumented in this encounter Care Teams Community Health Navigator Relationship Specialty Start Date End Date Casey Berry II, DO PCP - General 11/22/06 08/17/19 Stephani Aleman MD PCP - General Family Medicine 08/18/19 09/16/20 Bianka Loera JOB HAND [address] [place] [phone] PCP - General Nurse Practitioner Family 09/17/20 712/31 Desiree Patrick MD [address] [place] [address] PCP - General Electrophysiology 02/23/22 03/09/22 Desiree Patrick MD [address] [place] [address] 08/09/17 Farrah Nicole APRN,REACH TRUCK OPERATOR [address] [place] [place] [address] 08/09/17 Bry Echevarria MD [facility] [place] [address] 08/09/17 Casey Berry II, DO 08/09/17 Shruti Vergara RN RN Registered Nurse 08/27/20 documented as of this encounter Additional Source Comments PLEASE NOTE: Replies to this message will not be received.[facility] and [facility]
--- OUTSIDE RECORDS SUMMARY | 2024-05-18 20:36 | XMS_ITS | Encounter Summary ---
Author Organization [employer] Address [address] [place] [address] Care Team Providers Care Open Hearth Worker Name Role Phone Jamal CARLISLE DO, Robert William Primary Care Provide r Unavailable Desiree Patrick MD Unavailable Farrah Nicole APRN,PEDIATRIC PHYSICAL THERAPY ASSISTANT Unavailable [phone] Bry Echevarria MD Unavailable [phone] Jamal CARLISLE DO, Robert William Unavailable Unav Stephani Diaz MD Primary Care Provider [phone] Shruti Vergara RN Unavailable Unavailable Bianka Loera CNP Primary Care Provider Desiree Patrick MD Primary Care P rovider Encounter Details Date Type Department Care Team (Late st Contact Info) Description 03/10/[address] [facility] Family Medicine [address] [place] [address] Casey Berry II, DO Social History Tobacco [...] on filedocumented in this encounter Care Teams Open Hearth Worker Relationship Specialty Start Date End Date Casey Berry II, DO PCP - General 11/22/06 08/17/19 Stephani Aleman MD PCP - General Family Medicine 08/18/19 09/16/20 Bianka Loera CNP [address] [place] [phone] PCP - General Nurse Practitioner Family 09/17/2001/10 [place] [address] [place] [address] PCP - General Electrophysiology 02/23/22 03/09/22 Desiree Patrick MD [address] [facility] [place] [address] 08/09/17 Farrah Nicole APRN,[facility] [address] [facility] [place] [address] 08/09/17 Bry Echevarria MD [facility] [place] [address] 08/09/17 Casey Berry II, DO 08/09/17 Shruti Vergara RN RN Registered Nurse 08/27/20 documented as of this encounter Additional Source Comments PLEASE NOTE: Replies to this message will not be received.[facility] and [facility]
--- OUTSIDE RECORDS SUMMARY | 2024-05-18 20:36 | XMS_ITS | Encounter Summary ---
Author Organization [employer] Address [address] [place] [address] Care Team Providers Care Last Putter Away Name Role Phone Jamal CARLISLE DO, Robert William Primary Care Provide r Unavailable Desiree Patrick MD Unavailable Farrah Nicole APRN,AREA FIELD MANAGER Unavailable Bry Echevarria MD Unavailable [phone] Jamal CARLISLE DO, Robert William Unavailable Unav Stephani Diaz MD Primary Care Provider Shruti Vergara RN Unavailable Unavailable Bianka Loera CNP Primary Care Provider [phone] Desiree Patrick MD Primary Care P rovider Encounter Details Date Type Department Care Team (Late st Contact Info) Description 10/26/2016 Historical Conversion [facility] Family Medicine [address] [place] [address] Casey Berry II, DO Social History Tobacco [...] on filedocumented in this encounter Care Teams Last Putter Away Relationship Specialty Start Date End Date Casey Berry II, DO PCP - General 11/22/06 08/17/19 Stephani Aleman MD PCP - General Family Medicine 08/18/19 09/16/20 Bianka Loera CNP [address] [place] [address] [address] [place] [phone] PCP - General Nurse Practitioner Family 09/17/2001/10 [place] [address] [place] [address] PCP - General Electrophysiology 02/23/22 03/09/22 Desiree Patrick, MD [address] [place] [address] 08/09/17 Farrah Nicole APRN,[facility] [address] [place] [address] 08/09/17 Bry Echevarria MD [address] [place], [place] [address] [address] 08/09/17 Casey Berry II, DO 08/09/17 Shruti Vergara RN RN Registered Nurse 08/27/20 documented as of this encounter Additional Source Comments PLEASE NOTE: Replies to this message will not be received.[facility] and [facility]
--- OUTSIDE RECORDS SUMMARY | 2024-05-18 20:36 | XMS_ITS | Encounter Summary ---
Author Organization [employer] Address [address] [place] [address] Care Team Providers Care Student Life Advisor Name Role Phone Jamal CARLISLE DO, Robert William Primary Care Provide r Unavailable Desiree Patrick MD Unavailable Farrah Nicole APRN,ELECTRICIAN FRONT Unavailable Bry Echevarria MD Unavailable Jamal CARLISLE DO, Robert William Unavailable Unav Stephani Diaz MD Primary Care Provider Shruti Vergara RN Unavailable Unavailable Bianka Loera CNP Primary Care Provider [phone] Desiree Patrick MD Primary Care P rovider Encounter Details Date Type Department Care Team (Late st Contact Info) Description 03/30/2017 Historical Conversion [facility] Family Medicine [address] [facility] [place] [address] Desiree Rubi PAC [address] [place] [address] Social History Tobacco Use Types [...] on filedocumented in this encounter Care Teams Student Life Advisor Relationship Specialty Start Date End Date Casey Berry II, DO PCP - General 11/22/06 08/17/19 Stephani Aleman MD PCP - General Family Medicine 08/18/19 09/16/20 Bianka Loera CNP [address] [place] [address] 2 [place] [address] PCP - General Nurse Practitioner Family 09/17/20 712/31 Desiree Patrick MD [address] [place] [address] PCP - General Electrophysiology 02/23/22 03/09/22 Desiree Patrick MD [address] [place] [address] 08/09/17 Farrah Nicole APRN,ELECTRICIAN FRONT [address] [place] [address] 08/09/17 Bry Echevarria MD [address] [place] [address] 08/09/17 Casey Berry II, DO 08/09/17 Shruti Vergara RN RN Registered Nurse 08/27/20 documented as of this encounter Additional Source Comments PLEASE NOTE: Replies to this message will not be received.[facility] and [facility]
--- OUTSIDE RECORDS SUMMARY | 2024-05-18 20:36 | XMS_ITS | Encounter Summary ---
Author Organization [employer] Address [address] [place] [address] Care Team Providers Care Artist Consultant Name Role Phone Jamal CARLISLE DO, Robert William Primary Care Provide r Unavailable Desiree Patrick MD Unavailable Farrah Nicole APRN,PEARL DIVER Unavailable Bry Echevarria MD Unavailable Jamal CARLISLE DO, Robert William Unavailable Unav Stephani Diaz MD Primary Care Provider Shruti Vergara RN Unavailable Unavailable Bianka Loera CNP Primary Care Provider [phone] Desiree Patrick MD Primary Care P rovider Encounter Details Date Type Department Care Team (Late st Contact Info) Description 12/01/2016 Historical Conversion [facility] Family Medicine [address] [place] [address] Moon Maloney MD Social History Tobacco Use [...] on filedocumented in this encounter Care Teams Artist Consultant Relationship Specialty Start Date End Date Casey Berry II, DO PCP - General 11/22/06 08/17/19 Stephani Aleman MD PCP - General Family Medicine 08/18/19 09/16/20 Bianka Loera CNP [address] [place] [address] 2 [place] [phone] PCP - General Nurse Practitioner Family 09/17/2001/10 [place] [address] [place] [phone] PCP - General Electrophysiology 02/23/22 03/09/22 Desiree Patrick MD [address] [place] [address] 08/09/17 Farrah Nicole APRN,PEARL DIVER [address] [place] [address] 08/09/17 Bry Echevarria MD [address] [place] [address] 08/09/17 Casey Berry II, DO 08/09/17 Shruti Vergara RN RN Registered Nurse 08/27/20 documented as of this encounter Additional Source Comments PLEASE NOTE: Replies to this message will not be received.[facility]
--- OUTSIDE RECORDS SUMMARY | 2024-05-18 20:36 | XMS_ITS | Encounter Summary ---
Author Organization [employer] Address [address] [place] [address] Care Team Providers Care Band And Cuff Cutter Name Role Phone Jamal CARLISLE DO, Robert William Primary Care Provide r Unavailable Desiree Patrick MD Unavailable Farrah Nicole APRN,NURSING TECHNICIAN Unavailable Bry Echevarria MD Unavailable Jamal CARLISLE DO, Robert William Unavailable Unav Stephani Diaz MD Primary Care Provider Shruti Vergara RN Unavailable Unavailable Bianka Loera CNP Primary Care Provider [phone] Desiree Patrick MD Primary Care P rovider Encounter Details Date Type Department Care Team (Late st Contact Info) Description 12/31/2016 Historical Conversion [facility] Family Medicine [address] [facility] [place] [address] Desiree Rubi PAC [address] [place] [address] Social History Tobacco Use Types [...] CST UROLOGY CRISTIAN LADI : 1945 HX: [id number] DOS: 08/31/2017 HISTORY OF PRESENT ILLNESS: Anurag [...] 2% of the specimen. He also had Matteson 7 cancer at the left mid-prostate involving 5% of the tissue, the right mid-prostate had Matteson 7 cancer again involving 20% of the tissue in that area. Also at the right apex he had Matteson 7 cancer involving 5%. He was treated [...] by:Desiree Rubi PA-C Sep 02 2017 5:01PM DESIGN COORDINATOR * Desiree Rubi - 03/30/2017 12:00 AM CDT UROLOGY CRISTIAN BLEDSOE : 1945 HX: [id number] DOS: 03/30/2017 HISTORY OF PRESENT ILLNESS: 71-year-old male who presents to the Urology clinic today. The patient was previously noted to have a rubbery nodularity on both sides of the prostate. He had PSA velocity change. In August he had a PCA3 test that came back positive. He had a biopsy October 2016. Pathology showed a Matteson 6 prostate cancer at the left base of the prostate involving 2% of thespecimen. He had a Curt 7 cancer at the left mid prostate involving less than 5% of the tissue. The right mid prostate he had Matteson 7 cancer involving 20% of the tissue in that area. [facility] was a Curt 7 cancer [...] treatment. He has adenocarcinoma of the prostate. Matteson 7 cancer. He had beenon Lupron for [...] Mare Rubi P.A.-C./ cc: Dr. Moon Maloney [facility] Radha Winslow [facility] Radiation Therapy Dept Dr. Casey Berry [facility] Radha Electronically signed by:Desiree Rubi PA-C Apr 02 2017 1:20PM DESIGN COORDINATOR * Desiree Rubi - 12/31/2016 12:00 AM CDT UROLOGY CRISTIAN BLEDSOE : 1945 HX: [id number] DOS: 12/31/2016 HISTORY OF PRESENT ILLNESS: 71-year-old male who presents to the Urology clinic today. Hehad a velocity change with his PSA. On his prostate exam he had a rubbery nodularity on both sides.It was a symmetrical prostate. His PSA was monitored for a little while. In August he had a MASTER CARPENTER 3test and that came back positive. He was brought back for a prostate biopsy October 23, 2016. His pathology showed Curt 6 cancer at the left base of the prostate involving 2% of the specimen. He hadGleason 7 cancer at the left mid prostate involving less than 5% of the tissue. The right mid prostate he had a Matteson 7 cancer involving 20% of the specimen [...] Lupron. UA today is normal. ASSESSMENT: 1. Matteson 7 adenocarcinoma of the prostate. He will [...] Rubi P.A.-C./anna 28 cc: Dr. Moon Maloney [facility] Radha Winslow [facility] Dr. Casey Berry [facility] Radha Electronically signed by:Desiree Rubi PA-C Jan 06 2017 4:31PM DESIGN COORDINATOR Author documented in this encounter Plan of Treatment Not on file documented as of this encounter Visit Diagnoses Not on filedocumented in this encounter Care Teams Band And Cuff Cutter Relationship Specialty Start Date End Date Casey Berry II, DO PCP - General 11/22/06 08/17/19 Stephani Aleman MD PCP - General Family Medicine 08/18/19 09/16/20 Bianka Loera CNP [address] [place] [phone] PCP - General Nurse Practitioner Family 09/17/20 712/31 Desiree Patrick MD [address] [place] [address] PCP - General Electrophysiology 02/23/22 03/09/22 Desiree Patrick MD [address] [place] [address] 08/09/17 Farrah Nicole APRN,NURSING TECHNICIAN [address] [place] [address] 08/09/17 Bry Echevarria MD [address] [place] [address] 08/09/17 Casey Berry II, DO 08/09/17 Shruti Vergara, RN RN Registered Nurse 08/27/20 documented as of this encounter Additional Source Comments PLEASE NOTE: Replies to this message will not be received.[facility] and [facility]
--- OUTSIDE RECORDS SUMMARY | 2024-05-18 20:36 | XMS_ITS | Encounter Summary ---
Author Organization [facility] Address [address] [place] [address] Care Team Providers Care Extraction Operator Name Role Phone Jamal CARLISLE DO, Robert William Primary Care Provide r Unavailable Desiree Patrick MD Unavailable Farrah Nicole APRN,INTERACTIVE WEB DEVELOPER Unavailable Bry Echevarria MD Unavailable Jamal CARLISLE DO, Robert William Unavailable Unav Stephani Diza MD Primary Care Provider [phone] Shruti Vergaar RN Unavailable Unavailable Bianka Loera CNP Primary Care Provider [phone] Desiree Patrick MD Primary Care P rovider Encounter Details Date Type Department Care Team (Late st Contact Info) Description 12/31/2016 HIM [employer] Polisher Operator [facility]ascular [address] [address] Gil Solares MD Social History Tobacco Use [...] ADULT WITH OR WITHOUT CONTRAST PERFORMED BY: [employer] [place], [place] SITE: [place], [place] INTERPRETED BY: [facility] [place], [place] TRANSTHORACIC ECHOCARDIOGRAM REPORT REFERRING DIAGNOSIS: Paroxysmal [...] fibrillation. Note: This study was performed by [employer] for [place]. Only the interpretation wasperformed at the [facility] [place]. Electronically signed Gil Solares MD, [facility] [employer] Operator , 04:45 P A kmg/Doc#: [id number] cc: Adult Normal Value Adult Patient Values [...] Blood pressure: 116/81 mmHg Previous study: 11/19/15 Kennel Aide: WATSONG documented in this encounter Plan of [...] - 12/31/2016 12:00 AM CDT PERFORMED BY: [employer] [place], [place] SITE: [place], [place] INTERPRETED BY: [facility] [place], [place] TRANSTHORACIC ECHOCARDIOGRAM REPORT REFERRING DIAGNOSIS: Paroxysmal [...] fibrillation. Note: This study was performed by [facility] [place].Only the interpretation was performed at the [facility]. Electronically signed Gli Solares MD, [facility] [employer] Operator , 04:45 P A taylag/Doc#: [id number] cc: Adult Normal Value Adult Patient Values [...] dt 254 ms E' sept 6.04 cm/sec [id number] ms E/e' 10 E' lat 9.65 cm/sec IMPRESSION: Patient height: 185 cm Patient weight: 94 kg Blood pressure: 116/81 mmHg Previous study: 11/19/15 Kennel Aide: HIEU Desiree NICHOLS documented in this encounter Visit Diagnoses Not on filedocumented in this encounter Care Teams Extraction Operator Relationship Specialty Start Date End Date Casey Berry II, DO PCP - General 11/22/06 08/17/19 Stephani Aleman MD PCP - General Family Medicine 08/18/19 09/16/20 Bianka Loera, SHAPE CARVER [address] [place] [phone] PCP - General Nurse Practitioner Family 09/17/20 712/31 Desiree Patrick MD [address] [place] [address] PCP - General Electrophysiology 02/23/22 03/09/22 Desiree Patrick MD [address] [place] [address] 08/09/17 Farrah Nicole APRN,INTERACTIVE WEB DEVELOPER [address] [place] [address] 08/09/17 Bry Echevarria MD [address] [place] [address] 08/09/17 Casey Berry II, DO 08/09/17 Shruti Vergara RN RN Registered Nurse 08/27/20 documented as of this encounter Additional Source Comments PLEASE NOTE: Replies to this message will not be received.[facility] and [facility]
--- OUTSIDE RECORDS SUMMARY | 2024-05-18 20:36 | XMS_ITS | Encounter Summary ---
Author Organization [employer] Address [address] [place] [address] Care Team Providers Care Optical Goods Drilling Machine Operator Name Role Phone Jamal CARLISLE DO, Robert William Primary Care Provide r Unavailable Desiree Patrick MD Unavailable Farrah Nicole APRN,ENERGY CONSULTANT Unavailable Bry Echevarria MD Unavailable [phone] Jamal CARLISLE DO, Robert William Unavailable Unav Stephani Diaz MD Primary Care Provider Shruti Vergara RN Unavailable Unavailable Bianka Loera CNP Primary Care Provider Desiree Patrick MD Primary Care P rovider Encounter Details Date Type Department Care Team (Late st Contact Info) Description 06/24/2016 Historical Conversion [facility] Family Medicine [address] [place] [address] Casey Berry II, DO Social History Tobacco [...] Comments Blood Pressure 115/76 06/24/2016 12:00 AM HEBREW CANTOR Pulse - - Temperature - - Respiratory Rate - - Oxygen Saturation - - Inhaled Oxygen Concentration - - Weight 91.5 kg (201 lb 11.5 oz) 016 12:00 AM HEBREW CANTOR Height - - Body Mass Index 26.61 [...] on filedocumented in this encounter Care Teams Optical Goods Drilling Machine Operator Relationship Specialty Start Date End Date Casey Berry II, DO PCP - General 11/22/06 08/17/19 Stephani Aleman MD PCP - General Family Medicine 08/18/19 09/16/20 Bianka Loera CNP [address] [place] [phone] PCP - General Nurse Practitioner Family 09/17/2001/10 Desiree Patrick MD [address] [place] [address] PCP - General Electrophysiology 02/23/22 03/09/22 Desiree Patrick MD [address] [place] [address] 08/09/17 Farrah Nicole APRN,ENERGY CONSULTANT [address] [place] [address] 08/09/17 Bry Echevarria MD [address] [place] [address] [place] [address] 08/09/17 Casey Berry II, DO 08/09/17 Shruti Vergara RN RN Registered Nurse 08/27/20 documented as of this encounter Additional Source Comments PLEASE NOTE: Replies to this message will not be received.[facility] and [facility], [facility]
--- OUTSIDE RECORDS SUMMARY | 2024-05-18 20:36 | XMS_ITS | Encounter Summary ---
Author Organization [facility] Address [address] [place] [address] Care Team Providers Care Porter Baggage Name Role Phone Jamal CARLISLE DO, Robert William Primary Care Provide r Unavailable Desiree Patrick MD Unavailable Farrah Nicole APRN,MACHINE QUILT STUFFER Unavailable Bry Echevarria MD Unavailable Jamal CARLISLE DO, Robert William Unavailable Unav Stephani Diaz MD Primary Care Provider Shruti Vergara RN Unavailable Unavailable Bianka Loera CNP Primary Care Provider Desiree Patrick MD Primary Care P rovider Encounter Details Date Type Department Care Team (Late st Contact Info) Description 08/27/2016 Historical Conversion [facility] Family Medicine [address] [place] [address] Moon Maloney MD Social History Tobacco Use [...] Comments Blood Pressure 175/101 08/27/2016 12:00 AM PHARMACOLOGY ASSOCIATE Pulse - - Temperature - - Respiratory Rate - - Oxygen Saturation - - Inhaled Oxygen Concentration - - Weight 95.7 kg (210 lb 15.7 oz) 017 12:00 AM PHARMACOLOGY ASSOCIATE Height - - Body Mass Index 27.84 [...] on filedocumented in this encounter Care Teams Porter Baggage Relationship Specialty Start Date End Date Casey Berry II, DO PCP - General 11/22/06 08/17/19 Stephani Aleman MD PCP - General Family Medicine 08/18/19 09/16/20 Bianka Loera CNP [address] [place] [phone] PCP - General Nurse Practitioner Family 09/17/2001/10 [place] [address] [place] [address] PCP - General Electrophysiology 02/23/22 03/09/22 Desiree Patrick MD [address] [facility] [place] [address] 08/09/17 Farrah Nicole APRN,[facility] [address] [place] [address] 08/09/17 Bry Echevarria MD [address] [place] [address] [place] [address] 08/09/17 Casey Berry II, DO 08/09/17 Shruit Vergara RN RN Registered Nurse 08/27/20 documented as of this encounter Additional Source Comments PLEASE NOTE: Replies to this message will not be received.[facility] and [facility]
--- OUTSIDE RECORDS SUMMARY | 2024-05-18 20:36 | XMS_ITS | Encounter Summary ---
Author Organization [employer] Address [address] [place] [address] Care Team Providers Care Electric Golf Cart Repairers Name Role Phone Jamal CARLISLE DO, Robert William Primary Care Provide r Unavailable Desiree Patrick MD Unavailable Farrah Nicole APRN,MAINSPRING FORMER ARBOR END Unavailable Bry Echevarria MD Unavailable [phone] Jamal CARLISLE DO, Robert William Unavailable Unav Stephani Diaz MD Primary Care Provider Shruti Vergara RN Unavailable Unavailable Bianka Loera CNP Primary Care Provider Desiree Patrick MD Primary Care P rovider Encounter Details Date Type Department Care Team (Late st Contact Info) Description 04/06/2017 Historical Conversion [facility] Family Medicine [address] [place] [address] Casey Berry II, DO Social History Tobacco [...] filedocumented in this encounter Care Teams Electric Golf Cart Repairers Relationship Specialty Start Date End Date Casey Berry II, DO PCP - General 11/22/06 08/17/19 Stephani Aleman MD PCP - General Family Medicine 08/18/19 09/16/20 Bianka Loera CNP [address] [place] [phone] PCP - General Nurse Practitioner Family 09/17/2001/10 [place] [address] [place] [phone] PCP - General Electrophysiology 02/23/22 03/09/22 Desiree Patrick MD [address] [place] [address] 08/09/17 Farrah Nicole APRN,MAINSPRING FORMER ARBOR END [address] [place] [address] 08/09/17 Bry Echevarria MD [address] [place] [address] 08/09/17 Casey Berry II, DO 08/09/17 Shruti Vergara RN RN Registered Nurse 08/27/20 documented as of this encounter Additional Source Comments PLEASE NOTE: Replies to this message will not be received.[facility] and [facility]
--- OUTSIDE RECORDS SUMMARY | 2024-05-18 20:36 | XMS_ITS | Encounter Summary ---
Author Organization [employer] Address [address] [place] [address] Care Team Providers Care Radiophone Operator Name Role Phone Jamal CARLISLE DO, Robert William Primary Care Provide r Unavailable Desiree Patrick MD Unavailable Farrah Nicole APRN,CASSANDRA ARCHITECT Unavailable Bry Echevarria MD Unavailable Jamal CARLISLE DO, Robert William Unavailable Unav xiable Stephani Aleman MD Primary Care Provider Shruti Vergara RN Unavailable Unavailable Bianka Loera CNP Primary Care Provider [phone] Desiree Patrick MD Primary Care P rovider Encounter Details Date Type Department Care Team (Late st Contact Info) Description 10/09/2016 Historical Conversion [facility] Family Medicine [address] [facility] [place] [address] Jana Aleman APRN,CHAIR MECHANIC [address] [place] [address] Social History Tobacco Use Types [...] this encounter Progress Notes * Jana Aleman, SHED HAND,CHAIR MECHANIC - 10/09/2016 12:00 AM CDT Assessment 1. [...] [facility] He is instructed to return should his [...] Thao Phone Number to Contact Patient: : [phone] to Provider, Practice or Agency: : Either Shanda Mark or [facility] Reason For Visit Patient in [...] 1 TABLET BY MOUTH ONCE DAILY; Therapy: 29Gyc5743 to (Evaluate:08Sbh0031) Requested for: 13Jul2016; Last Rx:13Jul2016 Ordered 3. Metoclopramide HCl - 5 MG Oral Tablet; TAKE 1 TABLET as needed; Therapy: 10Sep2014 to Requested for: 33Oun3778 Recorded 4. Metoprolol Tartrate 25 MG Oral Tablet; 1 prn a fib; Therapy: (Recorded:20Hmf9670) to Requested for: [id number] Recorded 5. Tylenol Extra Strength 500 MG Oral Tablet; Therapy: (Recorded:54Lun4823) to Recorded 6. Warfarin Sodium 5 MG Oral Tablet; Take as directed by [facility]; Therapy: 63Cil2369 to (Evaluate:59Nbm4378) Requested for: 14Jul2016 Recorded Allergies 1. Penicillins [...] RN CNP RN,NIKKI; Oct 18 2016 1:54PM SOLAR PV INSTALLER Electronically signed by : Casey Berry DO; Oct 22 2016 1:20PM SOLAR PV INSTALLER documented in this encounter Plan of Treatment Not on file documented as of this encounter Visit Diagnoses Not on filedocumented in this encounter Care Teams Radiophone Operator Relationship Specialty Start Date End Date Casey Berry II, DO PCP - General 11/22/06 08/17/19 Stephani Aleman MD PCP - General Family Medicine 08/18/19 09/16/20 Bianka Loera CNP [address] [facility] [address] [place] [address] PCP - General Nurse Practitioner Family 09/17/20 712/31 [place] [address] [place] [address] [place] [address] PCP - General Electrophysiology 02/23/22 03/09/22 Desiree Patrick MD [address] [place] [address] 08/09/17 Farrah Nicole, SHED HAND,CASSANDRA ARCHITECT [address] [place] [address] 08/09/17 Bry Echevarria MD [address] [place] [address] [place] [address] 08/09/17 Casey Berry II, DO 08/09/17 Shruti Vergara RN RN Registered Nurse 08/27/20 documented as of this encounter Additional Source Comments PLEASE NOTE: Replies to this message will not be received.[facility]
--- OUTSIDE RECORDS SUMMARY | 2024-05-18 20:36 | XMS_ITS | Encounter Summary ---
Author Organization [employer] Address [address] [place] [address] Care Team Providers Care Core Winder Name Role Phone Jamal CARLISLE DO, Robert William Primary Care Provide r Unavailable Desiree Patrick MD Unavailable Farrah Nicole APRN,YOUTH MINISTER Unavailable [phone] Bry Echevarria MD Unavailable [phone] Jamal CARLISLE DO, Robert William Unavailable Unav Stephani Diaz MD Primary Care Provider Shruti Vergara RN Unavailable Unavailable Bianka Loera CNP Primary Care Provider Desiree Patrick MD Primary Care P rovider Encounter Details Date Type Department Care Team (Late st Contact Info) Description 07/01/2017 Historical Conversion [facility] Family Medicine [address] [place] [address] Social History Tobacco Use Types Packs/Day Years [...] of this encounter Procedure Notes * [facility] DONTAELUBNA - 06/14/2018 12:00 AM [...] by:Tiffani Carrero RN Jun 14 2018 7:43PM IMPLEMENTATION SERVICES ANALYST * [facility] MICHELLE[facility]OVIDER - 05/17/2018 12:00 AM CSTAssociated Order(s): ANTICOAGULATION Anticoagulation Clinic [facility] Name: CRISTIAN BLEDSOE : 1945 DOS: [...] by:Tiffani Carrero RN May 17 2018 11:41AM IMPLEMENTATION SERVICES ANALYST * [facility] 04/26/2018 12:00 AM CDTAssociated Order(s): ANTICOAGULATION Anticoagulation Clinic [facility] Name: CRISTIAN BLEDSOE : 1945 DOS: [...] by:Tiffani Carrero RN Apr 26 2018 4:12PM IMPLEMENTATION SERVICES ANALYST * [facility] 03/22/2018 12:00 AM CDTAssociated Order(s): ANTICOAGULATION Anticoagulation Clinic [facility] Name: CRISTIAN BLEDSOE : 1945 DOS: [...] by:Tiffani Carrero RN Mar 22 2018 3:06PM IMPLEMENTATION SERVICES ANALYST * [facility] DAYANNABRANDO - 02/23/2018 12:00 AM CDTAssociated Order(s): ANTICOAGULATION Anticoagulation [facility] Name: CRISTIAN BLEDSOE : 1945 DOS: 02/23/2018 [...] by:Tiffani Carrero RN Feb 23 2018 10:29AM IMPLEMENTATION SERVICES ANALYST * [facility] DONTAELUBNA - 02/09/2018 12:00 AM CDTAssociated Order(s): ANTICOAGULATION Anticoagulation [facility] Name: CRISTIAN BLEDSOE : 1945 DOS: 02/09/2018 Cristian is a patient of Dr. Berry. He is here today for anticoagulation assessment and INR check for adiagnosis of atrial fibrillation. Patient states that he has been feeling well. He denies any medication changes since his last INR check. Patient reports that he recently took a trip to [place] and forgot to take his Coumadin during the weekend. INR tested today is 1.8 with the recommended range of 2.0 to 3.0. Patient will continue Coumadin at 7.5 mg on Wednesdays and 5 mg all other days withan INR recheck in two weeks. Patient verbalizes understanding. Electronically signed by:Tiffani Carrero RN Feb 09 2018 4:06PM IMPLEMENTATION SERVICES ANALYST * [facility] - 07/01/2017 12:00 AM CSTAssociated Order(s): ANTICOAGULATION Name: CRISTIAN BLEDSOE : 1945 DOS: 07/01/2017 Cristian is a patient of Dr. Berry. He is here today for anticoagulation assessment and INR check for adiagnosis of atrial fibrillation. Patient was seen in clinic by Dr. Echevarria today post cardioversion. Patient had a cardioversion on 06/[address] [facility] and he reports it went [...] by:Theresa Crowder RN Jul 01 2017 5:02PM IMPLEMENTATION SERVICES ANALYST documented in this encounter Plan of [...] by:Tiffani Carrero RN Jun 14 2018 7:43PM IMPLEMENTATION SERVICES ANALYST [facility] OTHER * ANTICOAGULATION (05/17/2018) Narrative Procedure Note [facility] - 05/17/2018 12:00 AM CST Anticoagulation [facility] Name: CRISTIAN BLEDSOE : 1945 DOS: 05/17/2018 [...] by:Tiffani Carrero RN May 17 2018 11:41AM IMPLEMENTATION SERVICES ANALYST [facility] OTHER * ANTICOAGULATION (04/26/2018) Narrative Procedure Note [facility] - 04/26/2018 12:00 AM CDT Anticoagulation [facility] Name: CRISTIAN BLEDSOE : 1945 DOS: 04/26/2018 [...] by:Tiffani Carrero RN Apr 26 2018 4:12PM IMPLEMENTATION SERVICES ANALYST [facility] OTHER * ANTICOAGULATION (03/22/2018) Narrative Procedure Note [facility] - 03/22/2018 12:00 AM CDT Anticoagulation [facility] Name: CRISTIAN BLEDSOE : 1945 DOS: 03/22/2018 [...] by:Tiffani Carrero RN Mar 22 2018 3:06PM IMPLEMENTATION SERVICES ANALYST [facility] OTHER * ANTICOAGULATION (02/23/2018) Narrative Procedure Note [facility] - 02/23/2018 12:00 AM CDT Anticoagulation [facility] Name: CRISTIAN BLEDSOE : 1945 DOS: 02/23/2018 [...] by:Tiffani Carrero RN Feb 23 2018 10:29AM IMPLEMENTATION SERVICES ANALYST [facility] OTHER * ANTICOAGULATION (02/09/2018) Narrative Procedure Note [facility] - 02/09/2018 12:00 AM CDT Anticoagulation Clinic [facility] Name: CRISTIAN BLEDSOE : 1945 DOS: [...] by:Tiffani Carrero RN Feb 09 2018 4:06PM IMPLEMENTATION SERVICES ANALYST [facility] OTHER * ANTICOAGULATION (07/01/2017) Narrative Procedure Note [facility] - 07/01/2017 12:00 AM CST Name: CRISTIAN BLEDSOE : 1945 DOS: 07/01/2017 Cristian is a patient of Dr. Berry. He is here today for anticoagulationassessment and INR check for a diagnosis of atrial fibrillation. Patientwas seen in clinic by Dr. Echevarria today post cardioversion. Patient had acardioversion on 06/[address] [facility] and he reports it went [...] by:Theresa Crowder RN Jul 01 2017 5:02PM IMPLEMENTATION SERVICES ANALYST [facility] OTHER documented in this encounter Visit Diagnoses Not on filedocumented in this encounter Care Teams Core Winder Relationship Specialty Start Date End Date Casey Berry II, DO PCP - General 11/22/06 08/17/19 Stephani Aleman MD PCP - General Family Medicine 08/18/19 09/16/20 Bianka Loera PANTOGRAPH SETTER [address] [facility] [address] [place] [address] PCP - General Nurse Practitioner Family 09/17/2001/10 Desiree Patrick MD [address] [place] [address] PCP - General Electrophysiology 02/23/22 03/09/22 [place] [address] [place] [address] 08/09/17 Farrah Nicole APRN,ALEX [address] [place] [place] [address] 08/09/17 Bry Echevarria MD [address] [place] [address] 08/09/17 Casey Berry II, DO 08/09/17 Shruti Vergara RN RN Registered Nurse 08/27/20 documented as of this encounter Additional Source Comments PLEASE NOTE: Replies to this message will not be received.[facility] and [facility]
--- OUTSIDE RECORDS SUMMARY | 2024-05-18 20:36 | XMS_ITS | Encounter Summary ---
Author Organization [employer] Address [address] [place] [address] Care Team Providers Care Db2 Developer Name Role Phone Jamal CARLISLE DO, Robert William Primary Care Provide r Unavailable Desiree Patrick MD Unavailable Farrah Nicole APRN,GROUNDS WORKER Unavailable Bry Echevarria MD Unavailable [phone] Jamal CARLISLE DO, Robert William Unavailable Unav Stephani Diaz MD Primary Care Provider [phone] Shruti Vergara RN Unavailable Unavailable Bianka Loera CNP Primary Care Provider [phone] Desiree Patrick MD Primary Care P rovider Encounter Details Date Type Department Care Team (Late st Contact Info) Description 11/30/2016 Historical Conversion [facility] Family Medicine [address] [place] [address] Casey Berry II, DO Social History Tobacco [...] on filedocumented in this encounter Care Teams Db2 Developer Relationship Specialty Start Date End Date Casey Berry II, DO PCP - General 11/22/06 08/17/19 Stephani Aleman MD PCP - General Family Medicine 08/18/19 09/16/20 Bianka Loera CNP [address] [place] [address] [address] [place] [phone] PCP - General Nurse Practitioner Family 09/17/2001/10 [place] [address] [place] [address] PCP - General Electrophysiology 02/23/22 03/09/22 Desiree Patrick MD [address] [place] [address] 08/09/17 Farrah Nicole APRN,GROUNDS WORKER [address] [place] [address] 08/09/17 Bry Echevarria MD [facility] [place] [address] 08/09/17 Casey Berry II, DO 08/09/17 Shruti Vergara RN RN Registered Nurse 08/27/20 documented as of this encounter Additional Source Comments PLEASE NOTE: Replies to this message will not be received.[facility]
--- OUTSIDE RECORDS SUMMARY | 2024-05-18 20:36 | XMS_ITS | Encounter Summary ---
Author Organization [employer] Address [address] [place] [address] Care Team Providers Care Gas Plant Specialist Name Role Phone Jamal CARLISLE DO, Robert William Primary Care Provide r Unavailable Desiree Ptarick MD Unavailable Farrah Nicole APRN,MAINTENANCE MGR Unavailable [phone] Bry Echevarria MD Unavailable Jamal CARLISLE DO, Robert William Unavailable Unav Stephani Diaz MD Primary Care Provider Shruti Vergara RN Unavailable Unavailable Bianka Loera CNP Primary Care Provider [phone] Desiree Patrick MD Primary Care P rovider Encounter Details Date Type Department Care Team (Late st Contact Info) Description 09/02/2016 Historical Conversion [facility] Family Medicine [address] [place] [address] Casey El II, DO Social History Tobacco [...] Comments Blood Pressure 151/81 09/02/2016 12:00 AM FAST BRIM POUNCER Pulse - - Temperature - - Respiratory Rate - - Oxygen Saturation - - Inhaled Oxygen Concentration - - Weight 93.5 kg (206 lb 2.1 oz) 09/02/2016 12:00 AM FAST BRIM POUNCER Height 185.1 cm (6' 0.87) 09/02/2016 12:00 AM Saúl WARE Body Mass Index 27.29 09/02/2016 12:00 AM FAST BRIM POUNCER documented in this encounter Functional Status Functional [...] as needed; Therapy: 10Sep2014 to Requested for: 64Brw1074 Recorded 7. Metoprolol Tartrate 50 MG Oral Tablet; TAKE 1 TABLET TWICE DAILY; Therapy: (Recorded:21Oct2016) to Recorded 8. Tylenol Extra Strength 500 MG Oral Tablet; Therapy: (Recorded:18Nov2015) to Recorded 9. Warfarin Sodium 5 MG Oral Tablet; Take as directed by [facility]; Therapy: 78Pxm6235 to (Evaluate:24Whv4461) Requested for: 80Njk8918; Last Rx:19Paz9104 Ordered Allergies 1. Penicillins 2. Sulfa Drugs [...] Casey El DO; Apr 16 2017 8:13AM FAST BRIM POUNCER * Casey El II, DO - 11/30/2016 [...] healthy by no longer smoking.; Status:Complete; Done: 23Fky9223 Counseling Total time of encounter was 20 [...] first. At this point in time, the Power Plant Electrician has not stated that he a risk [...] as needed; Therapy: 10Sep2014 to Requested for: 05Mhf1244 Recorded 4. Metoprolol Tartrate 50 MG Oral Tablet; TAKE 1 TABLET TWICE DAILY; Therapy: (Recorded:21Oct2016) to Recorded 5. Tylenol Extra Strength 500 MG Oral Tablet; Therapy: (Recorded:18Nov2015) to Recorded 6. Warfarin Sodium 5 MG Oral Tablet; Take as directed by [facility]; Therapy: 44Zsl2384 to (Evaluate:12Nov2017) Requested for: 17Nov2016 Recorded Allergies 1. Penicillins 2. Sulfa Drugs Vitals Recorded: 30Nov2016 10:12AM Systolic 121 Diastolic 83 Heart Rate 106 Respiration 20 Temperature 98 F Weight 94.2 kg BMI Calculated 27.49 BSA Calculated 2.18 O2 Saturation 97 Physical Exam Deferred. Signatures Casey El II, D.OWilliam/pj-30 Electronically signed by : Casey El DO; Dec 09 2016 1:14PM FAST BRIM POUNCER * Casey El II, DO - 10/26/2016 12:00 AM CDT Assessment 1. Former smoker: 0 - 10 pack years (V15.82) (Z87.891) Atrial fibrillation/flutter. Plan Awaiting Holter monitor to see what is going to be done next with the Power Plant Electrician and most likely,Electrophysiology. We finally did get the results from the Holter which showed flutter and they will send him to see the Tobacco Farmworker. Reason For Visit patient in for hospital [...] Extra Strength 500 MG Oral Tablet; Therapy: (Recorded:10Ddq7156) to Recorded 6. Warfarin Sodium 5 MG Oral Tablet; Take as directed by [facility]; Therapy: 60Kan3248 to (Evaluate:82Egt4925) Requested for: 14Jul2016 Recorded Allergies 1. Penicillins 2. Sulfa Drugs Vitals Recorded: 87Bny9953 10:40AM Systolic 117, RUE, Sitting Diastolic 73, [...] Casey El DO; Nov 06 2016 8:45AM FAST BRIM POUNCER documented in this encounter H&P Notes * [...] Panel; Status:Hold For - Manual Activation; Requested for:01Klk5173; Hemoglobin A1C; Status:Hold For - Manual Activation; Requested for:21Uup4205; SocHx: Former smoker: 0 - 10 pack years Former Smoker: Since tobacco use can have significant health risks, you are helping yourself and others stay healthy by no longer smoking.; Status:Complete; Done: 43Srx0447 Reason For Visit H & P History [...] alcohol. 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 Colonoscopy in 2009. Pneumovax 2009. Prevnar 2015. Current Meds 1. Lisinopril 10 MG Oral Tablet; TAKE 1 TABLET BY MOUTH ONCE DAILY; Therapy: 95Xrm4000 to (Evaluate:46Jvi5534) Requested for: 13Jul2016; Last Rx:13Jul2016 Ordered 2. Metoclopramide HCl - 5 MG Oral Tablet; TAKE 1 TABLET as needed; Therapy: 10Sep2014 to Requested for: 02Sep2016 Recorded 3. Metoprolol Tartrate 25 MG Oral Tablet; 1 prn a fib; Therapy: (Recorded:02Sep2016) to Requested for: 02Sep2016 Recorded 4. Tylenol Extra Strength 500 MG Oral Tablet; Therapy: (Recorded:83Enq7803) to Recorded 5. Warfarin Sodium 5 MG Oral Tablet; Take as directed by [facility]; Therapy: 28Jan2016 to (Evaluate:60Qwm1223) Requested for: 14Jul2016 Recorded Allergies 1. Penicillins [...] rash. /RECTAL: Done by urology. Results/Data PHQ-9 01Bki3271 12:00AM Casey El Test Name Result Flag Reference PHQ-9 0 Alcohol & Drug Questionnaire for Adults 83Rht9148 12:00AM Casey El Test Name Result Flag Reference Alcohol & Drug Questionnaire for Adults 3 Nurse Note Pt given heel cups by dr el. #[id number] qty 2. mquam communications equipment supervisor Recorded as Task Date: 09/14/2016 01:01 PM, [...] if you have any questions! Cherelle Gomez [facility] #[id number] Kelly Walls - 15 Sep 2016 7:16 AM TASK REASSIGNED: Previously Assigned To Kelly Walls Michelle - 15 Sep 2016 9:00 AM TASK REASSIGNED: Previously Assigned To Casey El per dr el- dx plantar fasciitis M72.2 thanks. mquam communications equipment supervisor Signatures Casey El II D.Veena/la-3 Electronically signed by : Casey El DO; Sep 11 2016 1:25PM FAST BRIM POUNCER Electronically signed by : Casey El DO; Sep 16 2016 12:34PM FAST BRIM POUNCER documented in this encounter Plan of Treatment Not on file documented as of this encounter Visit Diagnoses Not on filedocumented in this encounter Care Teams Gas Plant Specialist Relationship Specialty Start Date End Date Casey El II, DO PCP - General 11/22/06 08/17/19 Stephani Aleman MD PCP - General Family Medicine 08/18/19 09/16/20 Bianka Loera EXECUTIVE RECRUITER [address] [facility] 2 [place] [address] PCP - General Nurse Practitioner Family 09/17/20 7/2 12/31 Desiree Patrick MD [address] [place] [address] PCP - General Electrophysiology 02/23/22 03/09/22 Desiree Patrick MD [address] [place] [address] 08/09/17 Farrah Nicole APRN,MAINTENANCE MGR [address] [place] [address] 08/09/17 Bry Echevarria MD [address] [place] [address] [place] [address] 08/09/17 Casey El II, DO 08/09/17 Shruti Vergara, RN RN Registered Nurse 08/27/20 documented as of this encounter Additional Source Comments PLEASE NOTE: Replies to this message will not be received.[facility]
--- OUTSIDE RECORDS SUMMARY | 2024-05-18 20:36 | XMS_ITS | Encounter Summary ---
Author Organization [employer] Address [address] [place] [address] Care Team Providers Care Geographic Area Intelligence Officer Name Role Phone Jamal CARLISLE DO, Robert William Primary Care Provide r Unavailable Desiree Patrick MD Unavailable Farrah Nicole APRN,INTERNATIONAL LOGISTICS MANAGER Unavailable [phone] Bry Echevarria MD Unavailable [phone] Jamal CARLISLE DO, Robert William Unavailable Unav Stephani Diaz MD Primary Care Provider Shruti Vergara RN Unavailable Unavailable Bianka Loera CNP Primary Care Provider [phone] Desiree Patrick MD Primary Care P rovider Encounter Details Date Type Department Care Team (Late st Contact Info) Description 07/01/2017 Historical Conversion [facility] [address] [facility] [place] [address] Bry Echevarria MD [address] [place] [address] Social History Tobacco Use Types [...] Comments Blood Pressure 136/70 07/01/2017 12:00 AM PHARMACOGNOSY TEACHER Pulse - - Temperature - - Respiratory Rate - - Oxygen Saturation - - Inhaled Oxygen Concentration - - Weight 97.6 kg (215 lb 2.7 oz) 07/01/2017 12:00 AM PHARMACOGNOSY TEACHER Height - - Body Mass Index 28.39 06/21/2017 2:27 PM PHARMACOGNOSY TEACHER documented in this encounter Functional Status Functional [...] on filedocumented in this encounter Care Teams Geographic Area Intelligence Officer Relationship Specialty Start Date End Date Casye Berry II, DO PCP - General 11/22/06 08/17/19 Stephani Aleman MD PCP - General Family Medicine 08/18/19 09/16/20 Bianka Loera CNP [address] [facility] 2 [place] [address] PCP - General Nurse Practitioner Family 09/17/2001/10 Desiree Patrick MD [address] [place] [address] PCP - General Electrophysiology 02/23/22 03/09/22 Desiree Patrick MD [address] [place] [address] 08/09/17 Farrah Nicole APRN,INTERNATIONAL LOGISTICS MANAGER [address] [place] [address] 08/09/17 Bry Echevarria MD [address] [place] [address] [place] [address] 08/09/17 Casey Berry II, DO 08/09/17 Shruti Vergara RN RN Registered Nurse 08/27/20 documented as of this encounter Additional Source Comments PLEASE NOTE: Replies to this message will not be received.[facility] and [facility]
--- OUTSIDE RECORDS SUMMARY | 2024-05-18 20:36 | XMS_ITS | Encounter Summary ---
Author Organization [employer] Address [address] [place] [address] Care Team Providers Care Compliance Technician Name Role Phone Jamal CARLISLE DO, Robert William Primary Care Provide r Unavailable Desiree Patrick MD Unavailable Farrah Nicole APRN,PRESIDENT [place] Unavailable Bry Echevarria MD Unavailable Jamal CARLISLE DO, Robert William Unavailable Unav Stephani Diaz MD Primary Care Provider [phone] Shruti Vergara RN Unavailable Unavailable Bianka Loera CNP Primary Care Provider Desiree Patrick MD Primary Care P rovider Encounter Details Date Type Department Care Team (Late st Contact Info) Description 10/21/2016 Historical Conversion [facility] Family Medicine [address] [place] [address] Social History Tobacco Use Types Packs/Day Years [...] filedocumented in this encounter Care Teams Compliance Technician Relationship Specialty Start Date End Date Casey Berry II, DO PCP - General 11/22/06 08/17/19 Stephani Aleman MD PCP - General Family Medicine 08/18/19 09/16/20 Bianka Loera CNP [address] [place] [phone] PCP - General Nurse Practitioner Family 09/17/2001/10 Desiree Patrick MD [address] [place] [address] PCP - General Electrophysiology 02/23/22 03/09/22 Desiree Patrick MD [address] [place] [address] 08/09/17 Farrah Nicole APRN,PRESIDENT [place] [address] [place] [address] 08/09/17 Bry Echevarria MD [address] [place] [address] 08/09/17 Casey Berry II, DO 08/09/17 Shruti Vergara RN RN Registered Nurse 08/27/20 documented as of this encounter Additional Source Comments PLEASE NOTE: Replies to this message will not be received.[facility]
--- OUTSIDE RECORDS SUMMARY | 2024-05-18 20:36 | XMS_ITS | Encounter Summary ---
Author Organization [employer] Address [address] [place] [address] Care Team Providers Care Provider Relations Specialist Name Role Phone Jamal CARLISLE DO, Robert William Primary Care Provide r Unavailable Desiree Patrick MD Unavailable Farrah Nicole APRN,SKIN GRADER Unavailable [phone] Bry Echevarria MD Unavailable [phone] Jamal CARLISLE DO, Robert William Unavailable Unav Stephani Diaz MD Primary Care Provider Shruti Vergara RN Unavailable Unavailable Bianka Loera CNP Primary Care Provider Desiree Patrick MD Primary Care P rovider Encounter Details Date Type Department Care Team (Late st Contact Info) Description 06/25/2017 Historical Conversion [facility] Family Medicine [address] [place] [address] Social History Tobacco Use Types Packs/Day Years [...] * [facility] - 06/25/2017 12:00 AM CST Medication Reconciliation Post Discharge Name: CRISTIAN BLEDSOE Date of Discharge: 06/24/2017 Current Meds 1. Digoxin 125 MCG Oral Tablet; Therapy: (Recorded:18Own0738) to Recorded 2. DilTIAZem HCl - 60 MG Oral Tablet; TAKE 1 TABLET BY MOUTH DAILY; Therapy: 14Apr2017 to (Evaluate:36Vim0105) Requested for: 61Fic2985 Recorded 3. Dofetilide 250 MCG Oral Capsule; TAKE 1 CAPSULE TWICE DAILY; Therapy: (Recorded:33Cwf1377) to Recorded 4. Metoclopramide HCl - 5 MG Oral Tablet (Reglan); TAKE 1 TABLET BY MOUTH THREE TIMES DAILY WITH MEALS; Therapy: 10Sep2014 to (Evaluate:17Sep2017) Requested for: 20May2017; Last Rx:20May2017 Ordered 5. Metoprolol Tartrate 50 MG Oral Tablet; TAKE 1 TABLET TWICE DAILY; Therapy: (Recorded:96Tdb6422) to Recorded 6. Tylenol Extra Strength 500 MG Oral Tablet; Therapy: (Recorded:06Qqt6496) to Recorded 7. Warfarin Sodium 5 MG Oral Tablet (Coumadin); Take as directed by [facility]; Therapy: 67Euh5517 to (Evaluate:28May2018) Requested for: 02Jun2017 Recorded Medication [...] INR checked next week. Reviewed 24 hour clin tech line, when to call PCP, and when to call 911. Patient voiced understanding. STACY Rasheed Follow-Up Recommendations Follow up with the following provider(s): cardiology 1 mo I reviewed with the patient the 24 hour nurse line and ecouraged them to call if they had any questions or concerns. Patient voiced understanding. Signatures Electronically signed by : Emma Estrella RN; Jun 25 2017 11:25AM GROUP DIRECTOR EXPERIENCE documented in this encounter Plan of Treatment Not on file documented as of this encounter Visit Diagnoses Not on filedocumented in this encounter Care Teams Provider Relations Specialist Relationship Specialty Start Date End Date Casey Berry II, DO PCP - General 11/22/06 08/17/19 Stephani Aleman MD PCP - General Family Medicine 08/18/19 09/16/20 Bianka Loera CNP [address] [facility] [address] [place] [address] PCP - General Nurse Practitioner Family 09/17/20 7/12/31 Desiree Patrick MD [address] [place] [address] PCP - General Electrophysiology 02/23/22 03/09/22 Desiree Patrick MD [address] [place] [address] 08/09/17 Farrah Nicole APRN,SKIN GRADER [address] [place] [place] [address] 08/09/17 Bry Echevarria MD [facility] [place] [address] 08/09/17 Casey Berry II, DO 08/09/17 Shruti Vergara RN RN Registered Nurse 08/27/20 documented as of this encounter Additional Source Comments PLEASE NOTE: Replies to this message will not be received.[facility]
--- OUTSIDE RECORDS SUMMARY | 2024-05-18 20:36 | XMS_ITS | Encounter Summary ---
Author Organization [employer] Address [address] [place] [address] Care Team Providers Care Apartment Property Manager Name Role Phone Jamal CARLISLE DO, Robert William Primary Care Provide r Unavailable Desiree Patrick MD Unavailable Farrah Nicole APRN,BAG LOADER MACHINE OPERATOR Unavailable Bry Echevarria MD Unavailable [phone] Jamal CARLISLE DO, Robert William Unavailable Unav Stephani Diaz MD Primary Care Provider Shruti Vergara RN Unavailable Unavailable Bianka Loera CNP Primary Care Provider Desiree Patrick MD Primary Care P rovider Encounter Details Date Type Department Care Team (Late st Contact Info) Description 10/17/2016 Historical Conversion [facility] Family Medicine [address] [place] [address] Social History Tobacco Use Types Packs/Day Years [...] do you have serious difficulty hearing? Yes-slightly NOME 10/17/2016 Are you blind or do you [...] as of this encounter Nursing Notes * [facility], GENERICPROVIDER - 10/17/2016 12:00 AM CDT Rohan presented to Urgent Care with complaint of feeling like his heart is racing, he can feel it pounding and a tighness in his chest occurs when this happens. He was seen at [facility] 10 days ago for an episode [...] to be evaluatedin the Emergency Room at [facility]. Patient and his elected to go by private car with patients driving. Electronically signed by:Tammy Coronado RN Oct 17 2016 2:09PM PHARMACIST PER DIEM AMENDMENTS: 1. Patient declines shortness of breath, radiating neck pain, shoulderblade pain or sternal pain. Electronically signed by:Tammy Coronado RN Oct 17 2016 2:14PM PHARMACIST PER DIEM documented in this encounter Plan of Treatment Not on file documented as of this encounter Visit Diagnoses Not on filedocumented in this encounter Care Teams Apartment Property Manager Relationship Specialty Start Date End Date Casey Berry II, DO PCP - General 11/22/06 08/17/19 Stephani Aleman MD PCP - General Family Medicine 08/18/19 09/16/20 Bianka Loera CNP [address] [place] [address] PCP - General Nurse Practitioner Family 09/17/2001/10 Desiree Patrick MD [address] [place] [facility] [place] [address] PCP - General Electrophysiology 02/23/22 03/09/22 Desiree Patrick MD [address] [place] [facility] [place] [address] 08/09/17 Farrah Nicole APRN,BAG LOADER MACHINE OPERATOR [address] [place] [facility] [place] [address] 08/09/17 Bry Echevarria MD [address] [place] [phone] 08/09/17 Casey Berry II, DO 08/09/17 Shruti Vergara, RN RN Registered Nurse 08/27/20 documented as of this encounter Additional Source Comments PLEASE NOTE: Replies to this message will not be received.[facility] and [facility]
--- OUTSIDE RECORDS SUMMARY | 2024-05-18 20:36 | XMS_ITS | Encounter Summary ---
Author Organization [employer] Address [address] [place] [address] Care Team Providers Care Bridge Mechanic Name Role Phone Jamal CARLISLE DO, Robert William Primary Care Provide r Unavailable Desiree Patrick MD Unavailable Farrah Nicole APRN,MACHINE MAINTENANCE MECHANIC Unavailable Bry Echevarria MD Unavailable [phone] Jamal CARLISLE DO, Robert William Unavailable Unav Stephani Diaz MD Primary Care Provider [phone] Shruti Vergara RN Unavailable Unavailable Bianka Loera CNP Primary Care Provider [phone] Desiree Patrick MD Primary Care P rovider Encounter Details Date Type Department Care Team (Late st Contact Info) Description 07/01/2017 Historical Conversion [facility] [address] [facility] [place] [address] Bry Echevarria MD [address] [place] [address] Social History Tobacco Use Types [...] ap pointment with the anticoagulation clinic in [facility] on July 09, 2017.[facility] [place] [facility]. The medicine list was reconciled. History of Present Illness Mr Carroll is a 71-year-old white male who comes to my on-call internal medicine clinic today forfollow-up of her recent hospitalization. His primary care physician is Dr. Berry. The patient was hospitalized in [place] last week and he underwent a cardioversion with the dofetilide. He is now onthat medication twice a day. His INR was slightly elevated at 3.2 when he was up in [place]. He was told to come in today for an INR check. He has not had any problems with bleeding. We did check his anticoagulation and his INR was therapeutic at 2.8. He will follow-up with the anticoagulation clinic in [facility] in 8 days and he [...] in atrial fibrillation.He is following up with [place] cardiology in 1 month. Allergies 1. Penicillins 2. Sulfa Drugs Vitals Vital Signs Recorded: [id number] 02:41PM Systolic 136, LUE, Sitting Diastolic 70, [...] appropriately. Results/Data Results, Free Text - [facility]: is therapeutic at 2.8. Signatures Electronically signed by : Bry Echevarria M.D.; Jul 01 2017 3:31PM CONSERVATION PLANNER (Author) documented in this encounter Plan of Treatment Not on file documented as of this encounter Visit Diagnoses Not on filedocumented in this encounter Care Teams Bridge Mechanic Relationship Specialty Start Date End Date Casey Berry II, DO PCP - General 11/22/06 08/17/19 Stephani Aleman MD PCP - General Family Medicine 08/18/19 09/16/20 Bianka Loera, HEAD ATHLETIC TRAINER [address] [place] [phone] PCP - General Nurse Practitioner Family 09/17/20 712/31 Desiree Patrick MD [address] [place] [address] PCP - General Electrophysiology 02/23/22 03/09/22 Desiree Patrick MD [address] [place] [address] 08/09/17 Farrah Nicole, DELINQUENT TAX COLLECTION ASSISTANT,[facility] [address] [place] [address] 08/09/17 Bry Echevarria MD [address] [place] [address] [place] [phone] 08/09/17 Casey Berry II, DO 08/09/17 Shruti Vergara, RN RN Registered Nurse 08/27/20 documented as of this encounter Additional Source Comments PLEASE NOTE: Replies to this message will not be received.[facility] and [facility]
--- OUTSIDE RECORDS SUMMARY | 2024-05-18 20:36 | XMS_ITS | Encounter Summary ---
Author Organization [employer] Address [address] [place] [address] Care Team Providers Care Helicopter Crew Chief Name Role Phone Jamal CARLISLE DO, Robert William Primary Care Provide r Unavailable Desiree Patrick MD Unavailable Farrah Nicole APRN,BUSINESS LINE MANAGER Unavailable Bry Echevarria MD Unavailable [phone] Jamal CARLISLE DO, Robert William Unavailable Unav Stephani Diaz MD Primary Care Provider [phone] Shruti Vergara RN Unavailable Unavailable Bianka Loera CNP Primary Care Provider Desiree Patrick MD Primary Care P rovider Encounter Details Date Type Department Care Team (Late st Contact Info) Description 12/31/2016 Historical Conversion [facility] Family Medicine 101 [facility] [place] [address] Desiree Rubi PAC [address] [place] [address] Social History Tobacco Use Types [...] on filedocumented in this encounter Care Teams Helicopter Crew Chief Relationship Specialty Start Date End Date Casey Berry II, DO PCP - General 11/22/06 08/17/19 Stephani Aleman MD PCP - General Family Medicine 08/18/19 09/16/20 Bianka Loera CNP [address] [facility] [address] [place] [address] PCP - General Nurse Practitioner Family 09/17/2001/10 Desiree Patrick MD [address] [place] [address] PCP - General Electrophysiology 02/23/22 03/09/22 Desiree Patrick MD [address] [place] [address] 08/09/17 Farrah Nicole APRN,BUSINESS LINE MANAGER [address] [place] [address] 08/09/17 Bry Echevarria MD [address] [place] [address] [place] [address] 08/09/17 Casey Berry II, DO 08/09/17 Shruti Vergara RN RN Registered Nurse 08/27/20 documented as of this encounter Additional Source Comments PLEASE NOTE: Replies to this message will not be received.[facility] and [facility]
--- OUTSIDE RECORDS SUMMARY | 2024-05-18 20:36 | XMS_ITS | Encounter Summary ---
Author Organization [employer] Address [address] [place] [address] Care Team Providers Care Wellness Specialist Name Role Phone Jamal CARLISLE DO, Robert William Primary Care Provide r Unavailable Desiree Patrick MD Unavailable Farrah Nicole APRN,SMOKING TOBACCO PACKING MACHINE HAND Unavailable Bry Echevarria MD Unavailable Jamal CARLISLE DO, Robert William Unavailable Unav Stephani Diaz MD Primary Care Provider Shruti Vergara RN Unavailable Unavailable Bianka Loera CNP Primary Care Provider [phone] Desiree Patrick MD Primary Care P rovider Encounter Details Date Type Department Care Team (Late st Contact Info) Description 09/07/2017 Historical Conversion [facility] Family Medicine [address] [place] [address] Casey Berry II, DO Social History Tobacco [...] Bilateral leg pain History of Present Illness Jodjkva-eve-acuk-old male who states that he was shoveling [...] TAKE 1 CAPSULE EVERY 12 HOURS; Last Rx:[id number] Ordered 2. Lisinopril 10 MG Oral Tablet; TAKE ONE TABLET DAILY; Therapy: 18Oct2017 to Recorded 3. Metoclopramide HCl - 5 MG Oral Tablet; TAKE 1 TABLET BY MOUTH THREE TIMES DAILY WITH MEALS NEEDED; Therapy: 10Sep2014 to (Evaluate:29Oct2017) Requested for: 21Qce8264; Last Rx:[id number] Ordered 4. Polyethylene Glycol 3350 Oral Powder; take 17 grams in 8 ounces of fluid once daily as needed for constipation; Therapy: 03Twn1067 to (Evaluate:27May2018); Last Rx:[id number] Ordered 5. Triamcinolone Acetonide 0.1 % External Lotion; APPLY 2-3 TIMES DAILY TO AFFECTED AREA(S); Therapy: 58Dtr0582 to (Last Rx:[id number]) Requested for: 71Mrc7955 Ordered 6. 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 [...] DAILY; Therapy: 14Apr2017 to (Evaluate:27May2018) Requested for: 02Etu1348; Last Rx:50Ijk5558 Ordered 3. Dofetilide 250 MCG Oral Capsule; TAKE 1 CAPSULE EVERY 12 HOURS; Last Rx:[id number] Ordered 4. Metoclopramide HCl - 5 MG Oral Tablet; TAKE 1 TABLET BY MOUTH THREE TIMES DAILY WITH MEALS NEEDED; Therapy: 10Sep2014 to (Evaluate:29Oct2017) Requested for: 77Gub5501; Last Rx:[id number] Ordered 5. Metoprolol Tartrate 50 MG Oral Tablet; TAKE 1/2 TABLET TWICE DAILY; Therapy: (Recorded:49Ivl2664) to Recorded 6. Polyethylene Glycol 3350 Oral Powder; take 17 grams in 8 ounces of fluid once daily as needed for constipation; Therapy: 01Jul2017 to (Evaluate:27May2018); Last Rx:[id number] Ordered 7. Warfarin Sodium 5 MG Oral Tablet; Take as directed by ACC; Therapy: 62Ixn6323 to (Evaluate:28May2018) Requested for: 02Jun2017 Recorded Allergies 1. Penicillins 2. Sulfa Drugs PENICILLIN AND SULFA. Immunizations Prevnar in 2016. Pneumovax in 2009. Tetanus in 2013. Shingles in 2009. Vitals Recorded: 63Twn8722 08:20AM Systolic 144 Diastolic 85 Heart Rate [...] Casey Berry DO; Sep 20 2017 7:51AM BICYCLE REPAIRER documented in this encounter Plan of Treatment Not on file documented as of this encounter Visit Diagnoses Not on filedocumented in this encounter Care Teams Wellness Specialist Relationship Specialty Start Date End Date Casey Berry II, DO PCP - General 11/22/06 08/17/19 Stephani Aleman MD PCP - General Family Medicine 08/18/19 09/16/20 Bianka Loera CNP [address] [place] [address] 2 [place] [phone] PCP - General Nurse Practitioner Family 09/17/2001/10 [place] [address] [place] [phone] PCP - General Electrophysiology 02/23/22 03/09/22 Desiree Patrick MD [address] [place] [address] 08/09/17 Farrah Nicole APRN,SMOKING TOBACCO PACKING MACHINE HAND [address] [place] [address] 08/09/17 Bry Echevarria MD [address] [place] [address] 08/09/17 Casey Berry II, DO 08/09/17 Shruti Vergara RN RN Registered Nurse 08/27/20 documented as of this encounter Additional Source Comments PLEASE NOTE: Replies to this message will not be received.[facility] and [facility]
--- OUTSIDE RECORDS SUMMARY | 2024-05-18 20:36 | XMS_ITS | Encounter Summary ---
Author Organization [employer] Address [address] [place] [address] Care Team Providers Care Knitting Machine Fixer Name Role Phone Jamal CARLISLE DO, Robert William Primary Care Provide r Unavailable Desiree Patrick MD Unavailable Farrah Nicole APRN,GROUNDWATER CONSULTANT Unavailable Bry Echevarria MD Unavailable Jamal CARLISLE DO, Robert William Unavailable Unav Stephani Diaz MD Primary Care Provider [phone] Shruti Vergara RN Unavailable Unavailable Bianka Loera CNP Primary Care Provider [phone] Desiree Patrick MD Primary Care P rovider Encounter Details Date Type Department Care Team (Late st Contact Info) Description 11/06/2016 Historical Conversion [facility] Family Medicine [address] [place] [phone] Moon Maloney MD Social History Tobacco Use [...] on filedocumented in this encounter Care Teams Knitting Machine Fixer Relationship Specialty Start Date End Date Casey Berry II, DO PCP - General 11/22/06 08/17/19 Stephani Aleman MD PCP - General Family Medicine 08/18/19 09/16/20 Bianka Loera CNP [address] [place] [address] 2 [place] [phone] PCP - General Nurse Practitioner Family 09/17/2001/10 Desiree Patrick MD [address] [place] [address] PCP - General Electrophysiology 02/23/22 03/09/22 Desiree Patrick MD [address] [place] [address] 08/09/17 Farrah Nicole APRN,GROUNDWATER CONSULTANT [address] [place] [address] 08/09/17 Bry Echevarria MD [address] [place] [address] 08/09/17 Casey Berry II, DO 08/09/17 Shruti Vergara RN RN Registered Nurse 08/27/20 documented as of this encounter Additional Source Comments PLEASE NOTE: Replies to this message will not be received.[facility] and [facility]
--- OUTSIDE RECORDS SUMMARY | 2024-05-18 20:36 | XMS_ITS | Encounter Summary ---
Author Organization [employer] Address [address] [place] [address] Care Team Providers Care Screw Machine Operator Swiss Type Name Role Phone Jamal CARLISLE DO, Robert William Primary Care Provide r Unavailable Desiree Patrick MD Unavailable Farrah Nicole APRN,CLASSIFICATION CLERK Unavailable Bry Echevarria MD Unavailable Jamal CARLISLE DO, Robert William Unavailable Unav Stephani Diaz MD Primary Care Provider Shruti Vergara RN Unavailable Unavailable Bianka Loera CNP Primary Care Provider [phone] Desiree Patrick MD Primary Care P rovider Encounter Details Date Type Department Care Team (Late st Contact Info) Description 10/17/2016 Historical Conversion [facility] Family Medicine [address] [place] [address] Social History Tobacco Use Types Packs/Day Years [...] do you have serious difficulty hearing? Yes-slightly [place]PPI [place] 10/17/2016 Are you blind or do you [...] on filedocumented in this encounter Care Teams Screw Machine Operator Swiss Type Relationship Specialty Start Date End Date Casey Berry II, DO PCP - General 11/22/06 08/17/19 Stephani Aleman MD PCP - General Family Medicine 08/18/19 09/16/20 Bianka Loera CNP [address] [place] [phone] PCP - General Nurse Practitioner Family 09/17/2001/10 [place] [address] [place] [address] PCP - General Electrophysiology 02/23/22 03/09/22 Desiree Patrick MD [address] [place] [facility] [place] [address] 08/09/17 Farrah Nicole APRN,[facility] [address] [place] [address] 08/09/17 Bry Echevarria MD [address] [place] [address] [place] [address] 08/09/17 Casey Berry II, DO 08/09/17 Shruti Vergara RN RN Registered Nurse 08/27/20 documented as of this encounter Additional Source Comments PLEASE NOTE: Replies to this message will not be received.[facility] and [facility]
--- OUTSIDE RECORDS SUMMARY | 2024-05-18 20:36 | XMS_ITS | Encounter Summary ---
Author Organization [employer] Address [address] [place] [address] Care Team Providers Care Engraving Plate Maker Name Role Phone Jamal CARLISLE DO, Robert William Primary Care Provide r Unavailable Desiree Patrick MD Unavailable Farrah Nicole APRN,MITERING MACHINE OPERATOR Unavailable Bry Echevarria MD Unavailable Jamal CARLISLE DO, Robert William Unavailable Unav Stephani Diaz MD Primary Care Provider Shruti Vergara RN Unavailable Unavailable Bianka Loera CNP Primary Care Provider [phone] Desiree Patrick MD Primary Care P rovider Encounter Details Date Type Department Care Team (Late st Contact Info) Description 10/08/[address] [facility] Family Medicine [address] [place] [address] Social History Tobacco Use Types Packs/Day Years [...] as of this encounter Nursing Notes * [facility], GENERICPROVIDER - 10/08/2016 12:00 AM [...] chest pain or confusion. Patient instructed by story writer to go to the Emergency Room at [facility] to be evaluated. Patient verbalized understanding of instructions. STACY MCCAULEY Electronically signed by:Tammy Coronado RN Oct 08 2016 8:22AM PERINATAL INSTRUCTOR documented in this encounter Plan of Treatment Not on file documented as of this encounter Visit Diagnoses Not on filedocumented in this encounter Care Teams Engraving Plate Maker Relationship Specialty Start Date End Date Casey Berry II, DO PCP - General 11/22/06 08/17/19 Stephani Aleman MD PCP - General Family Medicine 08/18/19 09/16/20 Bianka Loera CNP [address] [facility] 2 [place] [address] PCP - General Nurse Practitioner Family 09/17/2001/10 Desiree Patrick MD [address] [facility] [place] [address] PCP - General Electrophysiology 02/23/22 03/09/22 Desiree Patrick MD [address] [facility] [place] [address] 08/09/17 Farrah Nicole, HAND SHOE CUTTER,MITERING MACHINE OPERATOR [address] [facility] [place] [address] 08/09/17 Bry Echevarria MD [address] [place] [address] 08/09/17 Casey Berry II, DO 08/09/17 Shruti Vergara RN RN Registered Nurse 08/27/20 documented as of this encounter Additional Source Comments PLEASE NOTE: Replies to this message will not be received.[facility] and [facility]
--- OUTSIDE RECORDS SUMMARY | 2024-05-18 20:36 | XMS_ITS | Encounter Summary ---
Author Organization [employer] Address [address] [place] [address] Care Team Providers Care Program Manager Name Role Phone Jamal CARLISLE DO, Robert William Primary Care Provide r Unavailable Desiree Patrick MD Unavailable Farrah Nicole APRN,HEAD OF GEOGRAPHY Unavailable Bry Echevarria MD Unavailable Jamal CARLISLE DO, Robert William Unavailable Unav Stephani Diaz MD Primary Care Provider Shruti Vergara RN Unavailable Unavailable Bianka Loera CNP Primary Care Provider Desiree Patrick MD Primary Care P rovider Encounter Details Date Type Department Care Team (Late st Contact Info) Description 08/31/2017 Historical Conversion [facility] Family Medicine [address] [facility] [place] [address] Desiree Rubi PAC [address] [place] [address] Social History Tobacco Use Types [...] Comments Blood Pressure 112/60 08/31/2017 12:00 AM BET TAKER Pulse - - Temperature - - Respiratory Rate - - Oxygen Saturation - - Inhaled Oxygen Concentration - - Weight 95.9 kg (211 lb 6.7 oz) 08/31/2017 12:00 AM BET TAKER Height - - Body Mass Index 27.89 07/27/2017 2:42 PM BET TAKER documented in this encounter Functional Status Functional [...] filedocumented in this encounter Care Teams Program Manager Relationship Specialty Start Date End Date Casey Berry II, DO PCP - General 11/22/06 08/17/19 Stephani Aleman MD PCP - General Family Medicine 08/18/19 09/16/20 Bianka Loera CNP [address] [place] [address] 2 [place] [address] PCP - General Nurse Practitioner Family 09/17/20 712/31 Desiree Patrick MD [address] [place] [address] PCP - General Electrophysiology 02/23/22 03/09/22 Desiree Patrick MD [address] [place] [address] 08/09/17 Farrah Nicole APRN,HEAD OF GEOGRAPHY [address] [place] [address] 08/09/17 Bry Echevarria MD [address] [place] [address] [place] [address] 08/09/17 Casey Berry II, DO 08/09/17 Shruti Vergara RN RN Registered Nurse 08/27/20 documented as of this encounter Additional Source Comments PLEASE NOTE: Replies to this message will not be received.[facility] and [facility]
--- OUTSIDE RECORDS SUMMARY | 2024-05-18 20:36 | XMS_ITS | Encounter Summary ---
Author Organization [employer] Address [address] [place] [address] Care Team Providers Care Cloth Cutting Inspector Name Role Phone Jamal CARLISLE DO, Robert William Primary Care Provide r Unavailable Desiree Patrick MD Unavailable Farrah Nicole APRN,CURB SETTER Unavailable Bry Echevarria MD Unavailable Jamal CARLISLE DO, Robert William Unavailable Unav Stephani Diaz MD Primary Care Provider Shruti Vergara RN Unavailable Unavailable Bianka Loera CNP Primary Care Provider Desiree Patrick MD Primary Care P rovider Encounter Details Date Type Department Care Team (Late st Contact Info) Description 02/11/2016 Historical Conversion [facility] Family Medicine [address] [place] [address] Moon Maloney MD Social History Tobacco Use [...] on filedocumented in this encounter Care Teams Cloth Cutting Inspector Relationship Specialty Start Date End Date Casey Berry II, DO PCP - General 11/22/06 08/17/19 Stephani Aleman MD PCP - General Family Medicine 08/18/19 09/16/20 Bianka Loera CNP [address] [place] [phone] PCP - General Nurse Practitioner Family 09/17/2001/10 [place] [address] [place] [address] PCP - General Electrophysiology 02/23/22 03/09/22 Desiree Patrick MD [address] [facility] [place] [address] 08/09/17 Farrah Nicole APRN,[facility] [address] [facility] [place] [address] 08/09/17 Bry Echevarria MD [facility] [place] [address] 08/09/17 Casey Berry II, DO 08/09/17 Shruti Vergara RN RN Registered Nurse 08/27/20 documented as of this encounter Additional Source Comments PLEASE NOTE: Replies to this message will not be received.[facility] and [facility]
--- OUTSIDE RECORDS SUMMARY | 2024-05-18 20:36 | XMS_ITS | Encounter Summary ---
Author Organization [employer] Address [address] [place] [address] Care Team Providers Care Drupal Programmer Name Role Phone Jamal CARLISLE DO, Robert William Primary Care Provide r Unavailable Desiree Patrick MD Unavailable Farrah Nicole APRN,EVENT PLANNING MANAGER Unavailable [phone] Bry Echevarria MD Unavailable [phone] Jamal CARLILSE DO, Robert William Unavailable Unav Stephani Diaz MD Primary Care Provider [phone] Shruti Vergara RN Unavailable Unavailable Bianka Loera CNP Primary Care Provider Desiree Patrick MD Primary Care P rovider Encounter Details Date Type Department Care Team (Late st Contact Info) Description 02/03/2017 Historical Conversion [facility] Family Medicine [address] [place] [address] Social History Tobacco Use Types Packs/Day Years [...] as of this encounter Procedure Notes * [facility] 12[facility]00 AM CDTAssociated Order(s): [...] by:Tiffani Carrero RN Jan 05 2018 12:21PM MEDICAL LEGAL INVESTIGATOR * [facility] - 12/21/2017 12:00 AM CDTAssociated Order(s): ANTICOAGULATION [...] by:Tiffani Carrero RN Dec 21 2017 8:31AM MEDICAL LEGAL INVESTIGATOR * [facility] - 11/24/2017 12:00 AM CDTAssociated Order(s): ANTICOAGULATION Anticoagulation [facility] Name: CRISTIAN BLEDSOE : [...] by:Tiffani Carrero RN Nov 24 2017 2:41PM MEDICAL LEGAL INVESTIGATOR * [facility] - 10/27/2017 12:00 AM CDTAssociated Order(s): ANTICOAGULATION Anticoagulation [facility] Name: CRISITAN BLEDSOE : 1945 DOS: 10/27/2017 Cristian is a patient of Dr. Berry. He is here today for anticoagulation assessment and INR check for adiagnosis of atrial fibrillation. Patient states that he has not been feeling well and has been suffering with spinal stenosis. He reports that he has been taking soma for a muscle relaxer. He also reports that his benefits assistant has changed his medications. Patient stales that he is no longer takingany rate control medications. INR tested today is therapeutic at 2.0 with the recommended range of 2.0 to 3.0. He will continue Coumadin at 5 mg daily with an INR recheck in one month, sooner for anychanges. Patient verbalizes understanding. Electronically signed by:Tiffani Carrero RN Oct 28 2017 7:02AM MEDICAL LEGAL INVESTIGATOR * [facility] - 09/29/2017 12:00 AM CDTAssociated [...] experience bradycardia and is working with his benefits assistant to manage his beta blockers slowly. INR tested today is therapeutic at 2.1 with the recommended range of 2.0 to 3.0. He will continue Coumadin at 5 mg daily with an INR recheck in one month, sooner for any changes. Patient verbalizes understanding. Electronically signed by:Tiffani Carrero RN Sep 29 2017 2:09PM MEDICAL LEGAL INVESTIGATOR * [facility], [facility] - 09/15/2017 12:00 AM CSTAssociated [...] that Dr. Berry will converse with his benefits assistant to see if they should change some of his heart medications. Patient will call [facility] nurse with any updates. INR tested today is 1.9 with the recommended range of 2.0 to 3.0. He will adjust Coumadin to 5 mg daily with an INR recheck in two weeks. Patient verbalizes understanding. Electronically signed by:Tiffani Carrero RN Sep 15 2017 11:42AM MEDICAL LEGAL INVESTIGATOR * [facility] - 08/18/2017 12:00 AM CSTAssociated [...] by:Tiffani Carrero RN Aug 18 2017 6:00PM MEDICAL LEGAL INVESTIGATOR * [facility] - 07/09/2017 12:00 AM CSTAssociated [...] by:Tiffani Carrero RN Jul 09 2017 11:28AM MEDICAL LEGAL INVESTIGATOR * [facility] - 06/16/2017 12:00 AM [...] Dr. Patrick at [facility] Cardiology in preparation for [...] by:Tiffani Carrero RN Jun 16 2017 4:18PM MEDICAL LEGAL INVESTIGATOR * [facility] - 06/09/2017 12:00 AM [...] Dr. Patrick at [facility] Cardiology in preparation for [...] by:Tiffani Carrero RN Jun 09 2017 3:40PM MEDICAL LEGAL INVESTIGATOR * [facility], [facility] - 06/02/2017 12:00 AM CSTAssociated [...] weekly INR checks per Dr. Patrick at [facility] in preparation for taking dofetilide and a [...] by:Tiffani Carrero RN Jun 02 2017 9:39AM MEDICAL LEGAL INVESTIGATOR AMENDMENTS: 1. current INR and Coumadin dosing. Electronically signed by:Tiffani Carrero RN Jun 09 2017 3:41PM MEDICAL LEGAL INVESTIGATOR * [facility] - 05/26/2017 12:00 AM [...] Dr. Patrick at [facility] Cardiology in preparation for [...] by:Tiffani Carrero RN May 26 2017 9:42AM MEDICAL LEGAL INVESTIGATOR * [facility] - 05/19/2017 12:00 AM [...] Dr. Patrick at [facility] Cardiology in preparation for [...] by:Tiffani Carrero RN May 19 2017 3:13PM MEDICAL LEGAL INVESTIGATOR * [facility] - 05/14/2017 12:00 AM CDTAssociated Order(s): ANTICOAGULATION Email communication received from patient today: ALLAN Vera, RN [facility] (direct phone) [phone] Per our phone conversation of yesterday afternoon, I will be having an initiation of Tikosyn (Dofetilide) at [facility] beginning on June 21. To prepare for this, my benefits assistant,Dr. Desiree Patrick, has requested INR lab reports demonstrating 4 to 5 weeks of INR levels between 2.5 and 3 prior to the initiation of Tikosyn. Would you please fax my INR lab reports for the month of May to Tamika, Dr. Patrick???s nurse, at (fax) [phone]? The phone number for Dr. Patrick is [phone]. As we discussed, I will come in for INR testing each Wednesday morning at 9:30 AM to meet this requirement. Thank you, Anurag Bledsoe Electronically signed by:Tiffani Carrero RN May 14 2017 9:46AM MEDICAL LEGAL INVESTIGATOR * [facility] - 05/10/2017 12:00 AM CDTAssociated Order(s): ANTICOAGULATION [...] Dr. Patrick at [facility] Cardiology in preparation for [...] by:Tiffani Carrero RN May 10 2017 3:11PM MEDICAL LEGAL INVESTIGATOR * [facility] - 04/06/2017 12:00 AM [...] by:Tiffani Carrero RN Apr 06 2017 12:37PM MEDICAL LEGAL INVESTIGATOR * [facility] - 03/03/2017 12:00 AM [...] He will have INR checked in the [facility] prior to his appointment with Dr. Maloney. Patient verbalized understanding. Electronically signed by:Tiffani Carrero RN Mar 03 2017 12:02PM MEDICAL LEGAL INVESTIGATOR * [facility] - 02/03/2017 12:00 AM [...] by:Tiffani Carrero RN Feb 03 2017 10:11AM MEDICAL LEGAL INVESTIGATOR documented in this encounter Plan of Treatment [...] Results * ANTICOAGULATION (01/05/2018) Narrative Procedure Note [facility] - 01/05/2018 12:00 AM CDT Anticoagulation [facility] Name: CRISTIAN BLEDSOE : [...] by:Tiffani Carrero RN Jan 05 2018 12:21PM MEDICAL LEGAL INVESTIGATOR [facility] OTHER * ANTICOAGULATION (12/21/2017) Narrative Procedure Note [facility] - 12/21/2017 12:00 AM CDT Anticoagulation [facility] Name: CRISTIAN BLEDSOE : [...] by:Tiffani Carrero RN Dec 21 2017 8:31AM MEDICAL LEGAL INVESTIGATOR [facility] OTHER * ANTICOAGULATION (11/24/2017) Narrative Procedure Note [facility] - 11/24/2017 12:00 AM CDT Anticoagulation [facility] Name: CRISTIAN BLEDSOE : [...] by:Tiffani Carrero RN Nov 24 2017 2:41PM MEDICAL LEGAL INVESTIGATOR [facility] OTHER * ANTICOAGULATION (10/27/2017) Narrative Procedure Note [facility] - 10/27/2017 12:00 AM CDT Anticoagulation [facility] Name: CRISTIAN BLEDSOE : 1945 DOS: 10/27/2017 Cristian is a patient of Dr. Berry. He is here today for anticoagulationassessment and INR check for a diagnosis of atrial fibrillation. Patientstates that he has not been feeling well and has been suffering withspinal stenosis. He reports that he has been taking soma for a musclerelaxer. He also reports that his benefits assistant has changed hismedications. Patient stales that he is no longer taking any rate controlmedications. INR tested today is therapeutic at 2.0 with the recommendedrange of 2.0 to 3.0. He will continue Coumadin at 5 mg daily with an INRrecheck in one month, sooner for any changes. Patient verbalizesunderstanding. Electronically signed by:Tiffani Carrero RN Oct 28 2017 7:02AM MEDICAL LEGAL INVESTIGATOR [facility] OTHER * ANTICOAGULATION (09/29/2017) Narrative Procedure Note [facility] - 09/29/2017 12:00 AM CDT Anticoagulation [facility] Name: CRISTIAN BLEDSOE : 1945 DOS: 09/29/2017 Cristian is a patient of Dr. Berry. He is here today for anticoagulationassessment and INR check for a diagnosis of atrial fibrillation. Patientstates that he is feeling well. He denies any changes in medication.Patient reports that he continues to experience bradycardia and is workingwith his benefits assistant to manage his beta blockers slowly. INR testedtoday is therapeutic at 2.1 with the recommended range of 2.0 to 3.0. Hewill continue Coumadin at 5 mg daily with an INR recheck in one month,sooner for any changes. Patient verbalizes understanding. Electronically signed by:Tiffani Carrero RN Sep 29 2017 2:09PM MEDICAL LEGAL INVESTIGATOR [facility] OTHER * ANTICOAGULATION (09/15/2017) Narrative Procedure Note [facility] - 09/15/2017 12:00 AM CST [facility] Name: CRISTIAN [...] statesthat Dr. Berry will converse with his benefits assistant to see if they shouldchange some of his heart medications. Patient will call [facility] nurse with anyupdates. INR tested today is 1.9 with the recommended range of 2.0 to 3.0.He will adjust Coumadin to 5 mg daily with an INR recheck in two weeks.Patient verbalizes understanding. Electronically signed by:Tiffani Carrero RN Sep 15 2017 11:42AM MEDICAL LEGAL INVESTIGATOR [facility] OTHER * ANTICOAGULATION (08/18/2017) Narrative Procedure Note [facility] - 08/18/2017 12:00 AM CST Anticoagulation [facility] Name: CRISTIAN BLEDSOE : [...] by:Tiffani Carrero RN Aug 18 2017 6:00PM MEDICAL LEGAL INVESTIGATOR [facility] OTHER * ANTICOAGULATION (07/09/2017) Narrative Procedure Note [facility] - 07/09/2017 12:00 AM CST Anticoagulation [facility] Name: CRISTIAN BLEDSOE : [...] by:Tiffani Carrero RN Jul 09 2017 11:28AM MEDICAL LEGAL INVESTIGATOR [facility] OTHER * ANTICOAGULATION (06/16/2017) Narrative Procedure Note [facility] - 06/16/2017 12:00 AM CST Anticoagulation [facility] Name: CRISTIAN BLEDSOE : 1945 DOS: 06/16/2017 This is a patient of Dr. Berry. He is here today for an anticoagulationassessment and INR check for a diagnosis of atrial fibrillation. He statesthat he has been feeling well. Patient denies any recent medicationchanges. He reports that he needs weekly INR checks per Dr. Patrick [facility] Cardiology in preparation for taking [...] by:Tiffani Carrero RN Jun 16 2017 4:18PM MEDICAL LEGAL INVESTIGATOR [facility] OTHER * ANTICOAGULATION (06/09/2017) Narrative Procedure Note [facility] - 06/09/2017 12:00 AM CST Anticoagulation [facility] Name: CRISTIAN BLEDSOE : 1945 DOS: 06/09/2017 This is a patient of Dr. Berry. He is here today for an anticoagulationassessment and INR check for a diagnosis of atrial fibrillation. He statesthat he has been feeling well. Patient denies any recent medicationchanges. He reports that he needs weekly INR checks per Dr. Patrick [facility] Cardiology in preparation for taking [...] by:Tiffani Carrero RN Jun 09 2017 3:40PM MEDICAL LEGAL INVESTIGATOR Genericprovider [facility] OTHER * ANTICOAGULATION (06/02/2017) Narrative Procedure Note [facility], [facility] - 06/02/2017 12:00 AM CST [facility] Name: CRISTIAN BLEDSOE : 1945 DOS: 06/02/2017 This is a patient of Dr. Berry. He is here today for an anticoagulationassessment and INR check for a diagnosis of atrial fibrillation. He statesthat he has been feeling well. Patient denies any recent medicationchanges. He reports that he will need weekly INR checks per Dr. Valencia [facility] Cardiology in preparation for [...] by:Tiffani Carrero RN Jun 02 2017 9:39AM MEDICAL LEGAL INVESTIGATOR AMENDMENTS: 1. current INR and Coumadin dosing. Electronically signed by:Tiffani Carrero RN Jun 09 2017 3:41PM MEDICAL LEGAL INVESTIGATOR [facility] * [facility]ATION (05/26/2017) Narrative Procedure Note [facility] - 05/26/2017 12:00 AM CST Anticoagulation [facility] Name: CRISTIAN BLEDSOE : 1945 DOS: 05/26/2017 This is a patient of Dr. Berry. He is here today for an anticoagulationassessment and INR check for a diagnosis of atrial fibrillation. He statesthat he has been feeling well. Patient denies any recent medicationchanges. He reports that he will need weekly INR checks per Dr. Valencia [facility] Cardiology in preparation for [...] by:Tiffani Carrero RN May 26 2017 9:42AM MEDICAL LEGAL INVESTIGATOR [facility] OTHER * ANTICOAGULATION (05/19/2017) Narrative Procedure [facility] 05/19/2017 12:00 AM CST Anticoagulation [facility] Name: CRISTIAN BLEDSOE : 1945 DOS: 05/19/2017 This is a patient of Dr. Berry. He is here today for an anticoagulationassessment and INR check for a diagnosis of atrial fibrillation. He statesthat he has been feeling well. Patient denies any recent medicationchanges. He reports that he will need weekly INR checks per Dr. Valencia [facility] Cardiology in preparation for [...] by:Tiffani Carrero RN May 19 2017 3:13PM MEDICAL LEGAL INVESTIGATOR Genericprovider [facility] OTHER * ANTICOAGULATION (05/14/2017) Narrative Procedure Note [facility] - 05/14/2017 12:00 AM CDT Email communication received from patient today: ALLAN Vera, RN [facility] (direct phone) [phone] Per our phone conversation of yesterday afternoon, I will be having aninitiation of Tikosyn (Dofetilide) at [facility] beginning June 21. To prepare for this, my benefits assistant, Dr. Serra, has requested INR lab reports demonstrating 4 to 5 weeks ofINR levels between 2.5 and 3 prior to the initiation of Tikosyn. Would you please fax my INR lab reports for the month of May Oneil, Dr. Patrick? s nurse, at (fax) [phone]? The phone numberfor Dr. Patrick is [phone]. As we discussed, I will come in for INR testing each Wednesday morning at9:30 AM to meet this requirement. Thank you, Anurag Premapura Electronically signed by:Tiffani Carrero RN May 14 2017 9:46AM MEDICAL LEGAL INVESTIGATOR [facility] OTHER * ANTICOAGULATION (05/10/2017) Narrative Procedure Note [facility], [facility] - 05/10/2017 12:00 AM CDT Anticoagulation [facility] Name: CRISTIAN BLEDSOE : 1945 DOS: 05/10/2017 This is a patient of Dr. Berry. He is here today for an anticoagulationassessment and INR check for a diagnosis of atrial fibrillation. He statesthat he has been feeling well. Patient denies any recent medicationchanges. He reports that he will need weekly INR checks per Dr. Valencia [facility] Cardiology in preparation for [...] by:Tiffani Carrero RN May 10 2017 3:11PM MEDICAL LEGAL INVESTIGATOR [facility] OTHER * ANTICOAGULATION (04/06/2017) Narrative Procedure Note [facility], [facility] - 04/06/2017 12:00 AM CDT Anticoagulation [facility] Name: CRISTIAN BLEDSOE : [...] by:Tiffani Carrero RN Apr 06 2017 12:37PM MEDICAL LEGAL INVESTIGATOR [facility] OTHER * ANTICOAGULATION (03/03/2017) Narrative Procedure Note [facility] - 03/03/2017 12:00 AM CDT Anticoagulation [facility] Name: CRISTIAN BLEDSOE : [...] changes. He willhave INR checked in the [facility] prior to his appointment with . Patient verbalized understanding. Electronically signed by:Tiffani Carrero RN Mar 03 2017 12:02PM MEDICAL LEGAL INVESTIGATOR [facility] OTHER * ANTICOAGULATION (02/03/2017) Narrative Procedure Note [facility] - 02/03/2017 12:00 AM CDT Anticoagulation [facility] Name: CRISTIAN BLEDSOE : [...] by:Tiffani Carrero RN Feb 03 2017 10:11AM MEDICAL LEGAL INVESTIGATOR Genericprovider [facility] OTHER documented in this encounter Visit Diagnoses Not on filedocumented in this encounter Care Teams Drupal Programmer Relationship Specialty Start Date End Date Casey Berry II, DO PCP - General 11/22/06 08/17/19 Stephani Aleman MD PCP - General Family Medicine 08/18/19 09/16/20 Bianka Loera CNP [address] [place] [address] [address] [place] [address] PCP - General Nurse Practitioner Family 09/17/2001/10 Desiree Patrick MD [address] [place] [address] PCP - General Electrophysiology 02/23/22 03/09/22 Desiree Patrick MD [address] [place] [address] 08/09/17 Farrah Nicole APRN,EVENT PLANNING MANAGER [address] [phone] 08/09/17 Bry Echevarria MD [address] [place] [phone] 08/09/17 Casey Berry II, DO 08/09/17 Shruti Vergara RN RN Registered Nurse 08/27/20 documented as of this encounter Additional Source Comments PLEASE NOTE: Replies to this message will not be received.[facility] and [facility]
--- OUTSIDE RECORDS SUMMARY | 2024-05-18 20:37 | XMS_ITS | Encounter Summary ---
Author Organization [employer] Address [address] [place] [address] Care Team Providers Care Dials Inspector Name Role Phone Jamal CARLISLE DO, Robert William Primary Care Provide r Unavailable Desiree Patrick MD Unavailable Farrah Nicole APRN,CAMP RECREATION SPECIALIST Unavailable Bry Echevarria MD Unavailable [phone] Jamal CARLISLE DO, Robert William Unavailable Unav Stephani Diaz MD Primary Care Provider Shruti Vergara RN Unavailable Unavailable Bianka Loera CNP Primary Care Provider Desiree Patrick MD Primary Care P rovider Encounter Details Date Type Department Care Team (Late st Contact Info) Description 12/11/2015 Historical Conversion [facility] Family Medicine [address] [place] [address] Casey Berry II, DO Social History Tobacco [...] on filedocumented in this encounter Care Teams Dials Inspector Relationship Specialty Start Date End Date Casey Berry II, DO PCP - General 11/22/06 08/17/19 Stephani Aleman MD PCP - General Family Medicine 08/18/19 09/16/20 Bianka Loera CNP [address] [place] [phone] PCP - General Nurse Practitioner Family 09/17/2001/10 [place] [address] [place] [address] PCP - General Electrophysiology 02/23/22 03/09/22 Desiree Patrick MD [address] [facility] [place] [address] 08/09/17 Farrah Nicole APRN,[facility] [address] [place] [address] 08/09/17 Bry Echevarria MD [address] [place] [address] [place] [address] 08/09/17 Casey Berry II, DO 08/09/17 Shruti Vergara RN RN Registered Nurse 08/27/20 documented as of this encounter Additional Source Comments PLEASE NOTE: Replies to this message will not be received.[facility] and [facility]
--- OUTSIDE RECORDS SUMMARY | 2024-05-18 20:37 | XMS_ITS | Encounter Summary ---
Author Organization [employer] Address [address] [place] [address] Care Team Providers Care Filling Layer Up Name Role Phone Jamal CARLISLE DO, Robert William Primary Care Provide r Unavailable Desiree Patrick MD Unavailable Farrah Nicole APRN,DEHYDROGENATION OPERATOR Unavailable Bry Echevarria MD Unavailable Jamal CARLISLE DO, Robert William Unavailable Unav Stephani Diaz MD Primary Care Provider Shruti Vergara RN Unavailable Unavailable Bianka Loera CNP Primary Care Provider [phone] Desiree Patrick MD Primary Care P rovider Encounter Details Date Type Department Care Team (Late st Contact Info) Description 08/22/2014 Historical Conversion [facility] Family Medicine [address] [place] [address] Casey Berry II, DO Social History Tobacco [...] AND PHYSICAL CRISTIAN BLEDSOE : 1945 HX: [id number] DOS: 08/22/2014 CHIEF COMPLAINT: Routine physical. HISTORY OF CHIEF COMPLAINT: The patient filled out his paperwork. He does not see any other regular physicians. He has no major complaints. PAST MEDICAL [...] alcohol. 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 ALLERGIES: PENICILLIN AND SULFA. HEALTH CARE MAINTENANCE: [...] by:Casey Berry D.O. Sep 06 2014 7:40AM PANEL SAW OPERATOR documented in this encounter Plan of Treatment Not on file documented as of this encounter Visit Diagnoses Not on filedocumented in this encounter Care Teams Filling Layer Up Relationship Specialty Start Date End Date Casey Berry II, DO PCP - General 11/22/06 08/17/19 Stephani Aleman MD PCP - General Family Medicine 08/18/19 09/16/20 Bianka Loera CNP [address] [place] [address] [address] [place] [address] PCP - General Nurse Practitioner Family 09/17/20 712/31 PatrickDesiree raines MD [address] [facility] [address] PCP - General Electrophysiology 02/23/22 03/09/22 Desiree Patrick MD [address] [facility] [place] [address] 08/09/17 Farrah Nicole APRN,DEHYDROGENATION OPERATOR [address] [facility] [place] [address] 08/09/17 Bry Echevarria MD [address] [place] [address] 08/09/17 Casey Berry II, DO 08/09/17 Shruti Vergara RN RN Registered Nurse 08/27/20 documented as of this encounter Additional Source Comments PLEASE NOTE: Replies to this message will not be received.[facility] and [facility]
--- OUTSIDE RECORDS SUMMARY | 2024-05-18 20:37 | XMS_ITS | Encounter Summary ---
Author Organization [facility] Address [address] [place] [address] Care Team Providers Care Paid Intern Name Role Phone Unavailable Primary Care Provider Unavailabl e Reason for Referral * MRI/CAT/PET Scan (Routine) - Closed Specialty Diagnoses / Procedures Referred By Malinda t Referred To Contact Radiology Diagnoses Parkinsonism Unspecified (HCC) Procedures MR Brain without and with IV Contrast Vic Mae M.D. [address] [address] Phone: tel: fax: [facility] Region Referral ID Status Reason Start Date Expiration Date Visits Re quested Visits Authorized [id number] Closed 02/23/2024 02/22/2025 1 1 Reason for Visit * MRI/CAT/PET Scan (Routine) - Closed Specialty Diagnoses / Procedures Referred By Contac t Referred To Contact Radiology Diagnoses Parkinsonism Unspecified (HCC) Procedures MR Brain without and with IV Contrast Vic Mae M.D. [address] [address] Phone: tel: fax: [facility] Region Referral ID Status Reason Start Date Expiration Date Visits Re quested Visits Authorized [id number] Closed 02/23/2024 02/22/2025 1 1 Encounter Details Date Type Department Care Team (Latest Contact Info) Description 02/24/2024 1:38 PM CDT - 02/24/2024 11:59 PM CDT Hospital Encounter Department of Radiology in [place], [place] [address] [place] [address] Vic Mae M.D. [address] [place] [phone] Parkinsonism Unspecified (HCC) Discharge Disposition: Home or [...] Recorded Sex Assigned at Not on file Legal Sex Male 11:39 AM CDT Gender Identity Not on file Sexual Orientation Not on file documented as of this encounter Medications at Time of Discharge calcitonin, salmon, (Miacalcin) 200 unit/actuation nasal spray Administer 200 Units into one nostril daily. 01/24/2024 carbidopa-levodo pa (SINEMET) 25-100 mg per tablet [...] 5 mg by mouth daily. 01/29/2022 lisinopriL (PRINIVIL,ZESTRI L) 10 mg tablet Take [...] Care Team (Late st Contact Info) Description 06/15/2024 1:00 PM PRINT PRESS OPERATOR Office Visit Department of Neurology in [place], [place] [address] [address] Vic Mae M.D. [address] [address] documented as of this encounter Procedures Procedure [...] 4. No abnormal enhancement. Vic Mae M.D. [facility] [place] PROCEDURES Final Result documented in this encounter Visit Diagnoses Diagnosis [...]
--- OUTSIDE RECORDS SUMMARY | 2024-05-18 20:37 | XMS_ITS | Encounter Summary ---
Author Organization [facility] Address [address] [place] [address] Care Team Providers Care Thread Laster Name Role Phone Jamal CARLISLE DO, Robert William Primary Care Provide r Unavailable Desiree Patrick MD Unavailable Farrah Nicole APRN,CLINICAL STUDIES SPECIALIST Unavailable Bry Echevarria MD Unavailable [phone] Jamal CARLISLE DO, Robert William Unavailable Unav Stephani Daiz MD Primary Care Provider Shruti Vergara RN Unavailable Unavailable Bianka Loera CNP Primary Care Provider [phone] Desiree Patrick MD Primary Care P rovider Encounter Details Date Type Department Care Team (Late st Contact Info) Description 11/19/2015 HIM Envelope Stuffer [facility] [address] [place] [address] Dionisio Meneses MD [address] [place] [address] Social History Tobacco Use Types [...] ADULT WITH OR WITHOUT CONTRAST PERFORMED BY: [place] SITE: [place] INTERPRETED BY: [facility] [place], [place] TRANSTHORACIC ECHOCARDIOGRAM REPORT REFERRING DIAGNOSIS: Atrial [...] comparison. Note: This study was performed by [place] [employer] [facility] [place]. Only the interpretation wasperformed at the [facility]. Electronically signed Dionisio Meneses MD, [facility] Stamp Classifier , 04:04 P A vd/Doc#: [id number] cc: Adult Normal Value Adult Patient Values [...] kg Blood pressure: 126/75 Previous study: -- Eeg Tech: Lisa documented in this encounter Plan of [...] - 11/19/2015 12:00 AM CDT PERFORMED BY: [place] SITE: [place] INTERPRETED BY: [facility] [place], [place] TRANSTHORACIC ECHOCARDIOGRAM REPORT REFERRING DIAGNOSIS: Atrial [...] comparison. Note: This study was performed by [facility] [place].Only the interpretation was performed at the [facility]. Electronically signed Dionisio Meneses MD, [facility] Stamp Classifier , 04:04 P A vd/Doc#: [id number] cc: Adult Normal Value Adult Patient Values [...] kg Blood pressure: 126/75 Previous study: -- Eeg Tech: Lisa Dionisio Meneses MD CAR ULTRASOUND documented in this encounter Visit Diagnoses Not on filedocumented in this encounter Care Teams Thread Laster Relationship Specialty Start Date End Date Casey Berry II, DO PCP - General 11/22/06 08/17/19 Stephani Aleman MD PCP - General Family Medicine 08/18/19 09/16/20 Bianka Loera [facility] [address] [place] [address] [address] [place] [phone] PCP - General Nurse Practitioner Family 09/17/20 712/31 Desiree Patrick MD [address] [place] [address] PCP - General Electrophysiology 02/23/22 03/09/22 Desiree Patrick MD [address] [place] [address] 08/09/17 Farrah Nicole APRN,CLINICAL STUDIES SPECIALIST [address] [place] [phone] 08/09/17 Bry Echevarria MD [address] [place] [phone] 08/09/17 Casey Berry II, DO 08/09/17 Shruti Vergara RN RN Registered Nurse 08/27/20 documented as of this encounter Additional Source Comments PLEASE NOTE: Replies to this message will not be received.[facility] and [facility]
--- OUTSIDE RECORDS SUMMARY | 2024-05-18 20:37 | XMS_ITS | Encounter Summary ---
Author Organization [facility] Address [address] [place] [address] Care Team Providers Care Melt House Drag Operator Name Role Phone Unavailable Primary Care Provider Unavailabl e Reason for Referral * MRI/CAT/PET Scan (Routine) - Closed Specialty Diagnoses / Procedures Referred By Malinda wan Referred To Contact Radiology Diagnoses Parkinsonism Unspecified (HCC) Procedures MR Brain without and with IV Contrast Vic Mae M.D. [address] [address] Phone: tel: fax: [facility] Region Referral ID Status Reason Start Date Expiration Date Visits Re quested Visits Authorized [id number] Closed 02/23/2024 02/22/2025 1 1 Reason for Visit * Reason Comments Parkinson's Disease * Outpatient (Routine) - Closed Specialty Diagnoses / Procedures Referred By Malinda wan Referred To Contact Neurology Diagnoses Parkinsonism Unspecified (HCC) Cameron Poe M.D., M.P.H. Phone: tel: [facility] Region Referral ID Status Reason Start Date Expiration Date Visits Re quested Visits Authorized [id number] Closed 01/05/2023 01/05/2024 1 1 Encounter Details Date Type Department Care Team (Latest Contact Info) Description 02/23/2024 10:15 AM CDT Comprehensive Visit Department of Neurology in [place], [place] [address] [place] [address] Vic Mae M.D. 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 Neurology for evaluation of parkinsonism. Please [...] st Contact Info) Description 06/15/2024 1:00 PM ENGINE CLEANER Office Visit Department of Neurology in [place], [place] [address] [place] [address] Vic Mae M.D. [address] [place] [address] documented as of this encounter Results * MR Brain without and with IV Contrast (02/24/2024 2:39 PM CDT) Anatomical Region Laterality Modality Head, Brain, Neuroradiology [facility], Neuroradiology [facility], Neuroradiology [facility] N/A Magnetic Resonance Impressions 02/24/2024 4:49 [...] 4. No abnormal enhancement. Vic JOHN MRI PROCEDURES Final Result documented in this encounter Visit Diagnoses Diagnosis Parkinsonism Unspecified (HCC) Parkinsonism Unspecified (HCC) documented in this encounter
--- OUTSIDE RECORDS SUMMARY | 2024-05-18 20:37 | XMS_ITS | Continuity of Care Document ---
Author Organization [facility] Address [address] [place] [address] Phone Care Team Providers Care Panel Flow Machine Operator Name Role Phone Triston TRENT, PhD, Fabio Unavailable Unavai lable Allergies, Adverse Reactions, Alerts Substance Reaction Status Criticality Sulfa (Sulfonamide Antibiotics) Active No Information Penicillins Hives, Dermatitis Active No Informa tion Procedures Procedure Date Office/Outpatient Visit,[facility], [facility]23 Advance Directives Directive Yes / No Effective Date File Name No Information Encounters Encounter Description Practice Location Reason(s) For Visit Diagnoses Date Provider Providers Copied on Encounter [facility], [address], [place], [place], [id number], [place] tel:[phone] No Information Triston Mccarthy. [facility], [address] [place] [address] [address], [place], [address], [place]. tel:[phone] Office/Outpat ient Visit,[facility], [address], [place], [place], [id number], [place] tel:[phone] [facility] L4 fracture, initial encounter for closed fracture Kev Pfeiffer. [facility], [address] [place] [address] [address], [place], [address], [place]. tel:[phone] Referring Provider: Marli Sanders, [address], [address]. tel:[phone] Family History Family Member Type Diagnosis Age At Onset Father Problem (finding) Cancer, unknown type Payers Payer name Insurance type Covered constitution party ID Authordavida santana(s) [employer] [facility] [id number] Social History Type Description Quantity Date Captured [...]
--- OUTSIDE RECORDS SUMMARY | 2024-05-18 20:37 | XMS_ITS | Encounter Summary ---
Author Organization [facility] Address [address] [place] [address] Care Team Providers Care Butadiene Converter Utility Operator Name Role Phone Jamal CARLISLE DO, Robert William Primary Care Provide r Unavailable Desiree Patrick MD Unavailable Farrah Nicole APRN,ROUTE SALES REPRESENTATIVE Unavailable Bry Echevarria MD Unavailable Jamal CARLISLE DO, Robert William Unavailable Unav Stephani Diaz MD Primary Care Provider Shruti Vergara RN Unavailable Unavailable Bianka Loera CNP Primary Care Provider [phone] Desiree Patrick MD Primary Care P rovider Encounter Details Date Type Department Care Team (Late st Contact Info) Description 11/07/[address] [facility] Family Medicine [address] [place] [address] Moon Maloney MD Social History Tobacco Use [...] Body Mass Index 26.65 08/28/2015 12:00 AM COORDINATOR MINING PRODUCTS documented in this encounter Progress Notes * Moon Maloney MD - 11/06/2016 12:00 AM CDT UROLOGY [facility] CRISTIAN BLEDSOE : 1945 HX: [id number] DOS: 11/06/2016 SUBJECTIVE: Cristian and his are here to discuss the results of the recent prostate biopsy. We ended up taking Anurag off his Coumadin and doing a prostate biopsy because of a positive PAINT TRIMMER PIPE BOWLS-3 test and an elevated PSA, so he [...] two cores on the left base. Adenocarcinoma [place] 7 less than 5% one of two [...] be comfortable watching him. However, with the [place] 7, I know that they are watching [...] prostatectomy. Moon Maloney M.D./la-1 cc: Jose Winslow M.D./[facility] cc: Casey Berry II, D.O./[facility] Electronically signed by:Moon Maloney M.D. Nov 09 2016 1:49PM COORDINATOR MINING PRODUCTS * Moon Maloney MD - 10/23/2016 12:00 AM CDT UROLOGY [facility] CRISTIAN BLEDSOE : 1945 HX: [id number] DOS: 10/23/2016 SUBJECTIVE: Cristian is here for a prostate biopsy. I saw Cristian in August. PSA has started to go up.He had a little bit of an elevated PSA and elevated PSA velocity. We did a PAINT TRIMMER PIPE BOWLS-3 test. It did just come back positive. [...] negative. IMPRESSION: 1. Elevated PSA and positive PAINT TRIMMER PIPE BOWLS-3 test. PLAN: I told Anurag to take [...] Moon Maloney M.D./la-17 cc: Casey Berry II, D.OWilliam/[facility] Electronically signed by:Moon Maloney M.D. Oct 26 2016 12:13PM COORDINATOR MINING [employer]ODUCTS * Moon Maloney MD - 08/27/2016 12:00 AM CST UROLOGY CRISTIAN BLEDSOE : 1945 HX: [id number] DOS: 08/27/2016 SUBJECTIVE: Cristian comes to see [...] because we are going to do a PAINT TRIMMER PIPE BOWLS-3 test. LABORATORY DATA: AUA symptom score is 1. He has absolutely no trouble urinating. PSA is 5.4. IMPRESSION: 1. Elevated PSA velocity. PLAN: We are going to go ahead and get a PAINT TRIMMER PIPE BOWLS-3 test because his velocity is really if [...] going to go ahead and get a PAINT TRIMMER PIPE BOWLS-3 test today. Obviously if that is positive, [...] course risks of bleeding. However, if the PAINT TRIMMER PIPE BOWLS-3 is negative, then I would just see him in six months for a PSA. Total time spent with the patient was 25 minutes with greater than 50% in counseling. Moon Maloney M.D./la-21 cc: Casey Berry II, D.OWilliam/[facility] Electronically signed by:Moon Maloney M.D. Sep 18 2016 1:34PM COORDINATOR MINING PRODUCTS * Moon Maloney MD - 02/11/2016 12:00 AM CDT UROLOGY CRISTIAN BLEDSOE : 1945 HX: [id number] DOS: 02/11/2016 SUBJECTIVE: Cristian comes to see [...] Moon Maloney M.D./la-2 cc: Casey Berry, II, D.O./[facility] Electronically signed by:Moon Maolney M.D. Feb 24 2016 9:43AM COORDINATOR MINING PRODUCTS * Moon Maloney MD - 11/07/2015 12:00 AM CDT UROLOGY CRISTIAN BLEDSOE : 1945 HX: [id number] DOS: 11/07/2015 REFERRING PROVIDER: Dr. Berry. HISTORY [...] He is a former smoker, retired from [employer], he is . FAMILY HISTORY: Negative for [...] Moon Maloney M.D./la-29 cc: Casey Berry II, D.O./[facility] Electronically signed by:Moon Maloney M.D. Nov 25 2015 10:34AM COORDINATOR MINING PRODUCTS documented in this encounter Plan of Treatment Not on file documented as of this encounter Visit Diagnoses Not on filedocumented in this encounter Care Teams Butadiene Converter Utility Operator Relationship Specialty Start Date End Date Casey Berry II, DO PCP - General 11/22/06 08/17/19 Stephani Aleman MD PCP - General Family Medicine 08/18/19 09/16/20 Bianka Loera CNP [address] [facility] [address] [place] [address] PCP - General Nurse Practitioner Family 09/17/2001/10 [place] [address] [place] [address] PCP - General Electrophysiology 02/23/22 03/09/22 Desiree Patrick MD [address] [facility] [place] [address] 08/09/17 Farrah Nicole APRN,ROUTE SALES REPRESENTATIVE [address] [facility] [place] [address] 08/09/17 Bry Echevarria MD [address] [place] [address] [facility] [place] [address] 08/09/17 Casey Berry II, DO 08/09/17 Shruti Vergara RN RN Registered Nurse 08/27/20 documented as of this encounter Additional Source Comments PLEASE NOTE: Replies to this message will not be received.[facility] and [facility]
--- OUTSIDE RECORDS SUMMARY | 2024-05-18 20:37 | XMS_ITS | Clinical Summary ---
Author Organization [facility] Address [address] [place] [address] Care Team Providers Care Assistant Women'S Soccer Coach Name Role Phone Unavailable Primary Care Provider Unavailabl e Source Comments You are receiving this document as you are listed as the primary care provider,follow-up provider, or the patient has been referred to you for consultation.This is in compliance with the Medicare and[facility] Cliniccaid EHR Incentive Program,which states Providers who transition their patient to another setting of careor provider of care or refers their patient to another provider of care shouldprovide summary care record for each transition of care or referral. [facility] Allergies Active Allergy Reactions Criticality Noted Date [...] tablet Managed by outside facility/provider 12/03/2023 Active Social History Tobacco Use Types Packs/Day Years [...] on patient's age to complete this topic RSV Aged Out No longer eligi ble based on patient's age to complete this topic MCV4 Aged Out No longer eligi ble based on patient's age to complete this topic
--- OUTSIDE RECORDS SUMMARY | 2024-05-18 20:37 | XMS_ITS | Encounter Summary ---
Author Organization [facility] Address [address] [place] [address] Care Team Providers Care Equipment Tech Name Role Phone Jamal CARLISLE DO, [...] st Contact Info) Description 11/15/2006 Clinic Encounter [facility] Dermatology [address] [place] [address] Ganga Anderson MD Social History [...] P Date of Service: 2006 Doc #: [id number] P Attending Physician: None available SUBJECTIVE: This [...] 1 cc was used locally. Using a Ava blade, the skin biopsy was then performed. [...] will set up treatment as indicated. [facility] documented in this encounter Plan of Treatment Not on file documented as of this encounter Visit Diagnoses Not on filedocumented in this encounter Care Teams Equipment Tech Relationship Specialty Start Date End Date Casey Berry II, DO PCP - General 11/22/06 08/17/19 Stephani Aleman MD PCP - General Family Medicine 08/18/19 09/16/20 Bianka Loera CNP [address] [place] [address] [address] [place] [address] PCP - General Nurse Practitioner Family 09/17/20 7/2 12/31 Desiree Patrick MD [address] [place] [address] PCP - General Electrophysiology 02/23/22 03/09/22 Desiree Patrick MD [address] [place] [address] 08/09/17 Farrah Nicole APRN,FORESTRY ENGINEER [address] [place] [address] 08/09/17 Bry Echevarria MD [address] [place] [address] 08/09/17 Casey Berry II, DO 08/09/17 Shruti Vergara RN RN Registered Nurse 08/27/20 documented as of this encounter Additional Source Comments PLEASE NOTE: Replies to this message will not be received.[facility] and [facility]
--- OUTSIDE RECORDS SUMMARY | 2024-05-18 20:37 | XMS_ITS | Encounter Summary ---
Author Organization [facility] Address [address] [place] [address] Care Team Providers Care Filter Washer Name Role Phone Jamal CARLISLE DO, Robert William Primary Care Provide r Unavailable Desiree Patrick MD Unavailable Farrah Nicole APRN,SCREEN ROOM OPERATOR Unavailable Bry Echevarria MD Unavailable [phone] Jamal CARLISLE DO, Robert William Unavailable Unav Stephani Diaz MD Primary Care Provider Shruti Vergara RN Unavailable Unavailable Bianka Loera CNP Primary Care Provider Desiree Patrick MD Primary Care P rovider Encounter Details Date Type Department Care Team (Late st Contact Info) Description [address] [address] Social History Tobacco Use Types Packs/Day Years [...] on filedocumented in this encounter Care Teams Filter Washer Relationship Specialty Start Date End Date Casey Berry II, DO PCP - General 11/22/06 08/17/19 Stephani Aleman MD PCP - General Family Medicine 08/18/19 09/16/20 Bianka Loera TALENT SOLUTIONS MANAGER [address] [place] [address] [address] [place] [phone] PCP - General Nurse Practitioner Family 09/17/20 712/31 Desiree Patrick MD [address] [place] [address] PCP - General Electrophysiology 02/23/22 03/09/22 Desiree Patrick MD [address] [place] [address] 08/09/17 Farrah Nicole APRN,SCREEN ROOM OPERATOR [address] [place] [address] 08/09/17 Bry Echevarria MD [address] [place] [address] 08/09/17 Casey Berry II, DO 08/09/17 Shruti Vergara RN RN Registered Nurse 08/27/20 documented as of this encounter Additional Source Comments PLEASE NOTE: Replies to this message will not be received.[facility]
--- OUTSIDE RECORDS SUMMARY | 2024-05-18 20:37 | XMS_ITS | Encounter Summary ---
Author Organization [facility] Address [address] [place] [address] Care Team Providers Care Dynamicist Name Role Phone Jamal CARLISLE DO, Robert William Primary Care Provide r Unavailable Desiree Patrick MD Unavailable Farrah Nicole APRN,BETTING CLERKS Unavailable Bry Echevarria MD Unavailable Jamal CARLISLE DO, Robert William Unavailable Unav Stephani Diaz MD Primary Care Provider Shruti Vergara RN Unavailable Unavailable Bianka Loera CNP Primary Care Provider Desiree Patrick MD Primary Care P rovider Encounter Details Date Type Department Care Team (Late st Contact Info) Description 08/28/2015 Historical Conversion [facility] Family Medicine [address] [place] [phone] Casey Berry II, DO Social History Tobacco Use Types Packs/Day Years Used Date Smoking Tobacco: Never Assessed Sex and Gender Information Value Date Recorded Sex Assigned at Not on file Gender Identity Not on file Sexual Orientation Not on file documented as of this encounter Last Filed Vital Signs Vital Sign Reading Time Taken Comments Blood Pressure 134/90 08/28/2015 12:00 AM INSURANCE APPRAISER Pulse - - Temperature - - Respiratory Rate - - Oxygen Saturation - - Inhaled Oxygen Concentration - - Weight 90.2 kg (198 lb 13.7 oz) 016 12:00 AM INSURANCE APPRAISER Height 186 cm (6' 1.23) 08/28/2015 12: 00 AM INSURANCE APPRAISER Body Mass Index 26.07 08/28/2015 12:00 AM INSURANCE APPRAISER documented in this encounter Progress Notes * [...] healthy by no longer smoking.; Status:Complete; Done: 03Kwo7322 Reason For Visit Go over CT results. [...] 1 TABLET BY MOUTH ONCE DAILY; Therapy: 50Yol1459 to (Evaluate:14Pko3044) Requested for: 97Wqz8299; Last Rx:40Ecr1178 Ordered 2. Metoclopramide HCl - 5 MG Oral Tablet; TAKE 1 TABLET BY MOUTH THREE TIMES DAILY WITH MEALS; Therapy: 10Sep2014 to (Evaluate:72Ful5749) Requested for: 22Nqn9983; Last Rx:18Vsh4393 Ordered 3. Metoprolol Tartrate 25 MG Oral Tablet; 1/2 to 1 prn a fib Requested for: 18Iba6554; Last Rx:35Sye3415 Ordered 4. Tylenol Extra Strength 500 MG Oral Tablet; Therapy: (Recorded:28Cpd4588) to Recorded 5. Warfarin Sodium 5 MG Oral Tablet; Take as directed by ACC; Therapy: 46Qwu7562 to (Evaluate:15May2017) Requested for: 20May2016 Recorded Allergies 1. Penicillins 2. Sulfa Drugs Vitals Recorded: 51Kxh4619 10:00AM Systolic 115, RUE, Sitting Diastolic 76, RUE, Sitting Heart Rate 65 Respiration 16 Temperature 97.6 F, Forehead Weight 91.5 kg BMI Calculated 26.45 BSA Calculated 2.16 2+ Falls or 1 Fall with injury in last year? No O2 Saturation 96 Signatures Casey Berry II, D.OWilliam/pj-29 Electronically signed by : Casey Berry DO; Jul 09 2016 1:56PM INSURANCE APPRAISER * Casey Berry II, DO - 03/10/2016 [...] use sparingly qid; Therapy: 18Nov2015 to (Last Rx:85Yaw2276) Requested for: 62Ybh1894 Ordered 2. Lisinopril 10 MG Oral Tablet; TAKE 1 TABLET BY MOUTH ONCE DAILY; Therapy: 72Oof7142 to (Evaluate:01Hxx9724) Requested for: 26Qoa1893; Last Rx:24Zos1200 Ordered 3. Metoclopramide HCl - 5 MG Oral Tablet; TAKE 1 TABLET BY MOUTH THREE TIMES DAILY WITH MEALS; Therapy: 10Sep2014 to (Evaluate:32Vdp9227) Requested for: 83Aze2234; Last Rx:11Dum5375 Ordered 4. Tylenol Extra Strength 500 MG Oral Tablet; Therapy: (Recorded:52Jsg4611) to Recorded 5. Warfarin Sodium 5 MG Oral Tablet; Take as directed by ACC; Therapy: 74Gpi9979 to (Evaluate:68Euu1302) Requested for: 19Feb2016; Last Rx:19Feb2016 Ordered Allergies [...] Vital Signs [Data Includes: Current Encounter] Recorded: 36Yhw4615 10:06AM Blood Pressure 124 / 71 Heart [...] Casey Berry DO; Apr 02 2016 8:50AM INSURANCE APPRAISER * Casey Berry II, DO - 01/28/2016 [...] use sparingly qid; Therapy: 18Nov2015 to (Last Rx:43Eme9554) Requested for: 80Fgd5100 Ordered 2. Lisinopril 10 MG Oral Tablet; TAKE 1 TABLET BY MOUTH ONCE DAILY; Therapy: 08Xxn2198 to (Evaluate:18Cvy5179) Requested for: 93Zkk8813; Last Rx:16Cim1953 Ordered 3. Metoclopramide HCl - 5 MG Oral Tablet; TAKE 1 TABLET BY MOUTH THREE TIMES DAILY WITH MEALS; Therapy: 10Sep2014 to (Evaluate:27Rfx3225) Requested for: 27Lsc5047; Last Rx:15Mso2328 Ordered 4. Tylenol Extra Strength 500 MG Oral Tablet; Therapy: (Recorded:18Nov2015) to Recorded 5. Xarelto 15 MG Oral Tablet; TAKE 1 TABLET DAILY Requested for: 08Jan2016; Last Rx:08Jan2016 Ordered Allergies 1. Penicillins 2. Sulfa Drugs Social History 1. Former smoker: 0 - 10 pack years (V15.82) (Z87.891) Vitals Vital Signs [Data Includes: Current Encounter] Recorded: 74Wte6761 10:31AM Blood Pressure 139 / 83 Heart [...] Casey Berry DO; Feb 11 2016 7:47AM INSURANCE APPRAISER * Casey Berry II, DO - 12/11/2015 12:00 AM CDT Chief Complaint/Reason for Visit f/up ct History of Present Illness This is a 70-year-old male who recently underwent a stress test. The stress test showed no major abnormality, however, it was suggested of an aneurysm. 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 [place] that the CT scan would be a [...] 1 TABLET BY MOUTH ONCE DAILY; Therapy: 56Bxt8906 to (Evaluate:21Jua2375) Requested for: 10Byx5218; Last Rx:28Zwg4042 Ordered 3. Metoclopramide HCl - 5 MG Oral Tablet; TAKE 1 TABLET BY MOUTH THREE TIMES DAILY WITH MEALS; Therapy: 10Sep2014 to (Evaluate:35Lrq4344) Requested for: 03Dec2015; Last Rx:15See2748 Ordered 4. Tylenol Extra Strength 500 MG [...] Casey Berry DO; Dec 30 2015 8:19AM INSURANCE APPRAISER * Casey Berry II, DO - 11/18/2015 12:00 AM CDT Chief Complaint/Reason for Visit ER follow up History of Present Illness This is a 69-year-old male who has a long history of paroxysmal tachycardia. He recently had an episode of paroxysmal tachycardia. He went in to the ER in [place] and found that he had a flutter [...] INHALE ONE SPRAY TWICE DAILY PRN; Therapy: 59Ucp3675 to Requested for: 03Jan2014 Recorded 2. Lisinopril 10 MG Oral Tablet; TAKE 1 TABLET BY MOUTH ONCE DAILY; Therapy: 42Tvs6605 to (Evaluate:76Ruy7485) Requested for: 62Fkp6304; Last Rx:91Jiu1198 Ordered 3. Metoclopramide HCl - 5 MG Oral Tablet; TAKE 1 TABLET BY MOUTH THRE E TIMES DAILY WITH MEALS; Therapy: 10Sep2014 to (Evaluate:89Taf6584) Requested for: 95Oqd2767; Last Rx:95Ref9601 Ordered 4. Metoprolol Tartrate 25 MG Oral [...] Casey Berry DO; Nov 26 2015 8:06AM INSURANCE APPRAISER documented in this encounter H&P Notes * [...] INHALE ONE SPRAY TWICE DAILY PRN; Therapy: 35Zeu3601 to Requested for: 03Jan2014 Recorded 3. Lisinopril 10 MG Oral Tablet; TAKE 1 TABLET BY MOUTH ONCE DAILY; Therapy: 77Yro0724 to (Evaluate:38Uzg7391) Requested for: 15Axk2381; Last Rx:53Mxy8032 Ordered 4. Metoclopramide HCl - 5 MG Oral Tablet; TAKE 1 TABLET BY MOUTH THRE E TIMES DAILY WITH MEALS; Therapy: 10Sep2014 to (Evaluate:78Mxq6748) Requested for: 95Ltv1578; Last Rx:49Waq3711 Ordered 5. Vitamin D3 1000 UNIT Oral [...] healthy by no longer smoking.; Status:Complete; Done: 17Trh7911 1.Prevnar shot. 2.CBC, vitamin D, PSA, comp, and lipid. 3.Did discuss with patient about his foot. Signatures Casey Berry II, D.OWilliam/jaj-08 Electronically signed by : Casey Berry DO; Sep 19 2015 8:13AM INSURANCE APPRAISER documented in this encounter Procedure Notes * Casey Berry II, DO - 11/26/2015 12:00 AM CDTAssociated Order(s): NUCLEAR MEDICINE NUCLEAR MEDICINE CRISTIAN BLEDSOE : 1945 HX: [id number] DOS: 11/26/2015 Lexiscan portion of Lexiscan Cardiolite. [...] by:Casey Berry DO Dec 03 2015 7:45AM INSURANCE APPRAISER documented in this encounter Miscellaneous Notes * [...] you have any questions. Casey Berry DO [facility] Electronically signed by:DEYANIRA FRANCOIS Sep 09 2015 11:25AM INSURANCE APPRAISER documented in this encounter Plan of Treatment Not on file documented as of this encounter Procedures Procedure Name Priority Date/Time Associated Diagnosis Comments NUCLEAR MEDICINE 11/26/2015 documented in this encounter Results * NUCLEAR MEDICINE (11/26/2015) Anatomical Region Laterality Modality Other Narrative Procedure Note Casey Berry II, DO - 11/26/2015 12:00 AM CDT NUCLEAR MEDICINE CRISTIAN BLEDSOE : 1945 HX: [id number] DOS: 11/26/2015 Lexiscan portion of Lexiscan Cardiolite. BASELINE EKG: Shows no abnormality of note. PROTOCOL: Patient was given Lexiscan and Cardiolite. He had no majorcomplaints. EKG CHANGES NOTED DURING TEST: EKG showed no changes. IMPRESSION: 1. Normal Lexiscan portion of Lexiscan Cardiolite. RECOMMENDATIONS: We will await radiologic portion of test. Casey Berry II, D.O./jaj-23 Electronically signed by:Casey Berry DO Dec 03 2015 7:45AM INSURANCE APPRAISER Casey Berry II, DO RAD NUCLEAR M EDICINE documented in this encounter Visit Diagnoses Not on filedocumented in this encounter Care Teams Dynamicist Relationship Specialty Start Date End Date Casey Berry II, DO PCP - General 11/22/06 08/17/19 Stephani Aleman MD PCP - General Family Medicine 08/18/19 09/16/20 Bianka Loera GLASSWARE SELECTOR [address] [facility] [address] [place] [address] PCP - General Nurse Practitioner Family 09/17/20 712/31 Desiree Patrick MD [address] [place] [address] PCP - General Electrophysiology 02/23/22 03/09/22 [place] [address] [place] [phone] 08/09/17 Farrah Nicole APRN,ALEX [address] [...]
--- OUTSIDE RECORDS SUMMARY | 2024-05-18 20:37 | XMS_ITS | Encounter Summary ---
Author Organization [employer] Address [address] [place] [address] Care Team Providers Care Well Cleaner Name Role Phone Jamal CARLISLE DO, Robert William Primary Care Provide r Unavailable Desiree Patrick MD Unavailable Farrah Nicole APRN,HUMAN RESOURCES COMPENSATION ANALYST Unavailable [phone] Bry Echevarria MD Unavailable Jamal CARLISLE DO, Robert William Unavailable Unav Stephani Diaz MD Primary Care Provider Shruti Vergara RN Unavailable Unavailable Bianka Loera CNP Primary Care Provider [phone] Desiree Patrick MD Primary Care P rovider Encounter Details Date Type Department Care Team (Late st Contact Info) Description 01/28/2016 Historical Conversion [facility] Family Medicine [address] [place] [id number] Social History Tobacco Use Types Packs/Day Years [...] as of this encounter Procedure Notes * [facility], GENERICPROVIDER - 01/28/2016 12:00 AM CDTAssociated Order(s): [...] daily, Reglan 5 mg TID PRN, and [id number] mg BID for pain in right knee. [...] by:Razia Duarte RN Jan 28 2016 12:46PM MEMBERSHIP COORDINATOR documented in this encounter Plan of Treatment Not on file documented as of this encounter Procedures Procedure Name Priority Date/Time Associated Diagnosis Comments ANTICOAGULATION 01/28/2016 documented in this encounter Results * ANTICOAGULATION (01/28/2016) Narrative Procedure Note [facility], GENERICPROVIDER - 01/28/2016 12:00 AM CDT Name: CRISTIAN WILKINSN: [id number] : 1945 DOS: 01/28/2016 Cristian ia a [...] and approximately 200 lbs. Patient [facility] bleeding or stroke. He [...] summer as he is apart of a [employer]. Drinks green tea onoccasion; encouraged to avoid [...] by:Razia Duarte RN Jan 28 2016 12:46PM MEMBERSHIP COORDINATOR Genericprovider [facility] OTHER documented in this encounter Visit Diagnoses Not on filedocumented in this encounter Care Teams Well Cleaner Relationship Specialty Start Date End Date Casey Berry II, DO PCP - General 11/22/06 08/17/19 Stephani Aleman MD PCP - General Family Medicine 08/18/19 09/16/20 Bianka Loera LUGGAGE ATTENDANT [address] [place] [id number] PCP - General Nurse Practitioner Family 09/17/2001/10 Desiree Patrick MD [address] [place] [address] PCP - General Electrophysiology 02/23/22 03/09/22 Desiree Patrick MD [address] [place] [address] 08/09/17 Farrah Nicole APRN,HUMAN RESOURCES COMPENSATION ANALYST [address] [place] [address] 08/09/17 Bry Echevarria MD [address] [place] [address] 08/09/17 Casey Berry II, DO 08/09/17 Shruti Vergara RN RN Registered Nurse 08/27/20 documented as of this encounter Additional Source Comments PLEASE NOTE: Replies to this message will not be received.[facility] and [facility]
--- OUTSIDE RECORDS SUMMARY | 2024-05-18 20:37 | XMS_ITS ---
Author Organization [facility] Address [address] [place] [address] Care Team Providers Care Dealership General Manager Name Role Phone Unavailable Unavailable Unavailable Surgery Details Not on file Complications Check Surgery Details section. Procedure Estimated Blood Loss Check Surgery Details section. Procedure Findings Check Surgery Details section. Procedure Specimens Taken Check Surgery Details section.
--- OUTSIDE RECORDS SUMMARY | 2024-05-18 20:37 | XMS_ITS | Encounter Summary ---
Author Organization [employer] Address [address] [place] [address] Care Team Providers Care Jewel Corner Brushing Machine Operator Name Role Phone Jamal CARLISLE DO, Robert William Primary Care Provide r Unavailable Desiree Patrick MD Unavailable Farrah Nicole APRN,COTTON CLASSER AIDE Unavailable Bry Echevarria MD Unavailable [phone] Jamal CARLISLE DO, Robert William Unavailable Unav Stephani Diaz MD Primary Care Provider Shruti Vergara RN Unavailable Unavailable Bianka Loera CNP Primary Care Provider [phone] Desiree Patrick MD Primary Care P rovider Encounter Details Date Type Department Care Team (Late st Contact Info) Description 08/22/2014 Historical Conversion [facility] Family Medicine [address] [place] [id number] Casey Berry II, DO Social History Tobacco Use Types Packs/Day Years Used Date Smoking Tobacco: Never Assessed Sex and Gender Information Value Date Recorded Sex Assigned at Not on file Gender Identity Not on file Sexual Orientation Not on file documented as of this encounter Last Filed Vital Signs Vital Sign Reading Time Taken Comments Blood Pressure 145/88 08/22/2014 12:00 AM SEAM CHECKER Pulse - - Temperature - - Respiratory Rate - - Oxygen Saturation - - Inhaled Oxygen Concentration - - Weight 90.7 kg (200 lb) 08/22/2014 12:00 AM SEAM CHECKER Height 185.4 cm (6' 1) 08/22/2014 12:00 AM SEAM CHECKER Body Mass Index 26.39 08/22/2014 12:00 AM SEAM CHECKER documented in this encounter Plan of Treatment Not on file documented as of this encounter Visit Diagnoses Not on filedocumented in this encounter Care Teams Jewel Corner Brushing Machine Operator Relationship Specialty Start Date End Date Casey Berry II, DO PCP - General 11/22/06 08/17/19 Stephani Aleman MD PCP - General Family Medicine 08/18/19 09/16/20 Bianka Loera CNP [address] [place] [address] [address] [place] [address] PCP - General Nurse Practitioner Family 09/17/2001/10 Desiree Patrick MD [address] [place] [address] PCP - General Electrophysiology 02/23/22 03/09/22 Desiree Patrick MD [address] [place] [address] 08/09/17 Farrah Nicole, CONVEYOR BELT REPAIRER,COTTON CLASSER AIDE [address] [place] [address] 08/09/17 Bry Echevarria MD [address] [place] [address] [facility] [place] [phone] 08/09/17 Casey Berry II, DO 08/09/17 Shruti Vergara RN RN Registered Nurse 08/27/20 documented as of this encounter Additional Source Comments PLEASE NOTE: Replies to this message will not be received.[facility] and [facility]
--- OUTSIDE RECORDS SUMMARY | 2024-05-18 20:37 | XMS_ITS | Referral Summary ---
Author Organization [facility] Address [address] [place] [address] Care Team Providers Care Experimental Outboard Motors Mechanic Name Role Phone Unavailable Primary Care Provider Unavailabl e Source Comments Patient records contain information from all sites at [facility]. For routine questions regarding patient records, call [phone] during business hours, M-F 8:00 AM - 5:00 PM Central Time. Record requests for emergency care only can be directed to [phone] at any time.[facility] Encounters Date Type Department Care Team Description 02/24/2024 1:38 PM CDT - 02/24/2024 11:59 PM CDT Hospital Encounter Department of Radiology in [address] [address] Vic Mae M.D. Parkinsonism Unspecified (HCC) Discharge Disposition: Home or Self Care 02/23/2024 10:15 AM CDT Comprehensive Visit Department of Neurology in [address] [address] Vic Mae M.D. Parkinsonism Unspecified (HCC) from Last 3 Months Allergies Active Allergy Reactions Criticality Noted Date Comments Penicillin G Hives (Reselect Reaction) 02/04/20 22 Sulfa (Sulfonamide Antibiotics) Rash 02/03/2022 Medications dofetilide (TIKOSYN) 250 mcg capsule Take 250 mg by mouth 2 (two) times a day. Active memantine (NAMENDA) 10 mg tablet TAKE 1 TABLET (10 MG) BY MOUTH TWICE DAILY. 2 Active lisinopriL (PRINIVIL,ZESTR IL) 10 mg tablet Take 10 mg by mouth daily. 2 Active Jantoven 5 mg tablet Take 5 mg by mouth daily. 2 Active DME CPAP BiPAP autoSV Advanced or VPAP adapt SV auto Max EPAP: 15 Min EPAP: 7 Max PS: 15 Min PS: 0 9 Active DUCODYL, BISACODYL, ORAL Take by mouth. Active carbidopa-levod opa (SINEMET) 25-100 mg per tablet Take 2.5 tablets by mouth 3 (three) times a day. 675 tablet 3 3 Active Additional Information Patient taking differently: 3 tabletoral 3 times daily,Taking 3 tablets 3 times daily, Reported on 02/23/2024 calcitonin, salmon, (Miacalcin) 200 unit/actuation nasal spray Administer 200 Units into one nostril daily. 4 Active Active Problems Problem Noted Date Diagnosed [...] 2015 Overview (05/17/2023): 4.[address] [facility] Social History Tobacco Use Types Packs/Day [...] Comments Blood Pressure 136/82 05/17/2023 1:44 PM WINDSHIELD REPAIR TECHNICIAN Pulse 70 05/17/2023 1:44 PM WINDSHIELD REPAIR TECHNICIAN Temperature 36.8 ??C (98.2 ??F) 05/17/2023 1:44 PM CS T Respiratory Rate - - Oxygen Saturation - - Inhaled Oxygen Concentration - - Weight 87.3 kg (192 lb 7.4 oz) 05/17/2023 1:44 P M WINDSHIELD REPAIR TECHNICIAN Height 184 cm (6' 0.44) 04/15/2023 2:57 PM CDT Body Mass Index 25.79 04/15/2023 2:57 PM CDT Plan of Treatment Upcoming Encounters Date Type Department Care Team (Late st Contact Info) Description 06/15/2024 1:00 PM WINDSHIELD REPAIR TECHNICIAN Office Visit Department of Neurology in [place], [place] [address] [phone] Vic Mae M.D. [address] [phone] Procedures Procedure Name Priority Date/Time Associated Diagnosis [...] 4. No abnormal enhancement. Vic Mae M.D. [facility] MRI PROCEDURES Final Result from Last 3 Months Insurance [facility]
--- OUTSIDE RECORDS SUMMARY | 2024-05-18 20:37 | XMS_ITS | Clinical Summary ---
Author Organization [facility] Address [address] [place] [address] Care Team Providers Care Resistor Testing Machine Operator Name Role Phone Unavailable Primary Care Provider Unavailabl e Source Comments Patient records contain information from all sites at [facility]. For routine questions regarding patient records, call [phone] during business hours, M-F 8:00 AM - 5:00 PM Central Time. Record requests for emergency care only can be directed to [phone] at any time.[facility] Allergies Active Allergy Reactions Criticality Noted Date Comments Penicillin G Hives (Reselect Reaction) 02/04/20 22 Sulfa (Sulfonamide Antibiotics) Rash 02/03/2022 Medications dofetilide (TIKOSYN) 250 mcg capsule Take 250 mg by mouth 2 (two) times a day. 2 Active memantine (NAMENDA) 10 mg tablet TAKE [...] 2015 Overview (05/17/2023): 4.2 x 4.3 on [facility] Encounters Date Type Department Care Team Description 02/24/2024 1:38 PM CDT - 02/24/2024 11:59 PM CDT Hospital Encounter Department of Radiology in [place], [place] [address] [place] [phone] Vic Mae M.D. Parkinsonism Unspecified (HCC) Discharge Disposition: Home or Self Care 02/23/2024 10:15 AM CDT Comprehensive Visit Department of Neurology in [place], [place] [address] [place] [phone] Vic Mae M.D. Parkinsonism Unspecified (HCC) from [...] Comments Blood Pressure 136/82 05/17/2023 1:44 PM SHUTTLELESS LOOM WEAVER Pulse 70 05/17/2023 1:44 PM SHUTTLELESS LOOM WEAVER Temperature 36.8 ??C (98.2 ??F) 05/17/2023 1:44 PM CS T Respiratory Rate - - Oxygen Saturation - - Inhaled Oxygen Concentration - - Weight 87.3 kg (192 lb 7.4 oz) 05/17/2023 1:44 P M SHUTTLELESS LOOM WEAVER Height 184 cm (6' 0.44) 04/15/2023 2:57 PM CDT Body Mass Index 25.79 04/15/2023 2:57 PM CDT Plan of Treatment Upcoming Encounters Date Type Department Care Team (Late st Contact Info) Description 06/15/2024 1:00 PM SHUTTLELESS LOOM WEAVER Office Visit Department of Neurology in [place], [place] [address] [phone] Vic Mae M.D. [address] [phone] Health Maintenance Due Date Last Done Comments Creatinine Level (Kidney Function Test) 1945 Hepatitis C Screening 1945 Potassium Level 1945 Sodium Level 1945 Fall Risk Screen (Annual) 07/12/2023 COVID-19 Vaccine ( season) 2024 04/17/2023, 05/07/2022, 11/04/2021, Additional history exists Influenza Vaccine (#1) 2024 , 04/13/2022, 03/25/2021, Additional history exists Office Visit for Blood Pressure Check / Re-check 05/17/2024 05/17/2023 DTaP,Tdap,and Td Vaccines (3 - Td or Tdap) 09/14/2033 09/15/2023, 08/21/2013 Pneumococcal vaccine (65+ years) Completed 08/28/2016, 08/28/2015, 01/28/2010 RSV vaccine - (32-36 weeks) or 60+ years Completed 04/17/2023 Zoster Vaccines Completed 11/16/2023, 0312/2023, 01/28/2010 IPV Vaccines Aged Out No longer eligi ble [...] 4. No abnormal enhancement. Vic Mae M.D. [facility] MRI PROCEDURES Final Result from Last 3 Months Insurance [facility]
--- OUTSIDE RECORDS SUMMARY | 2024-05-18 20:37 | XMS_ITS | Continuity of Care Document ---
Author Organization [facility] Address [address] [place] [id number] Phone Care Team Providers Care Integrated Circuits Inspector Name Role Phone Timoteo Acosta D.O. Unavailable [...] Diagnoses Date Provider Providers Copied on Encounter [facility], [address] [place] [address], [id number], tel:[phone] [facility] No Information Dave Mahmood. [address] [place] [address], [id number], [place]. tel:[phone] [facility], [address] [place] [address], [id number], [place] tel:[phone] [facility] No Information Dave Mahmood. [address] [place] [address], [id number], [place]. tel:[phone] Referring Provider: Cherelle Borja [facility] [address], [place], [address]. tel:[phone] [facility], [address] [place] [address], [id number], [place] tel:[phone] [facility] No Information Dave Mahmood. [address] [place] [address], [id number], [place]. tel:[phone] Referring Provider: Cherelle Borja [facility] [address], [place], [address]. tel:[phone] OFFICE/OUTPATI ENT VISIT, EST [facility], [address] [place] [address], [id number], [place] tel:[phone] [facility] decreased vision (chief complaint) PCO-OSDrusen (degenerative ) of macula, left eye Dave Mahmood. [address] [place] [address], [id number], [place]. tel:[phone] Referring Provider: Cherelle Borja [facility] [address], [place], [address]. tel:[phone] [facility], [address] [place] [address], [id number], tel:[phone] [facility] No Information Dave Mahmood. [address] [place] [address], [id number], . tel:[phone] Referring Provider: Timoteo Zhao, [address] [place] [address], [id number]. tel:[phone] [facility], [address] [place] [address], [id number], tel:[phone] [facility] No Information Dave Mahmood. [address] [place] [address], [id number], [place]. tel:[phone] Referring Provider: Timoteo Zhao, [address] [place] [address], [address] [place] [address]. tel:[phone] OFFICE/OUTPATI ENT VISIT, [facility], [address] [place] [address], [address] [place] [address], tel:[phone] [facility] blurry vision (chief complaint) Cat-combined- ODCat-Pseudop hakia Dave Mahmood. [address] [place] [address], [id number], [place]. tel:[phone] Referring Provider: Timoteo Zhao, [address] [place] [address], [address] [place] [address]. tel:[phone] [facility], [address] [place] [address], [id number], [place] tel:[phone] [facility] No Information Dave Mahmood. [address] [place] [address], [id number], [place]. tel:[phone] Referring Provider: Timoteo Zhao, [address] [place] [address], [id number]. tel:[phone] [facility], [address] [place] [address], [id number], tel:[phone] [facility] No Information Dave Mahmood. [address] [place] [address], [id number], [place]. tel:[phone] Referring Provider: Timoteo Zhao, [address] [place] [address], [id number]. tel:[phone] [facility], [address] [place] [address], [id number], tel:[phone] [facility] No Information Dave Mahmood. [address] [place] [address], [id number], [place]. tel:[phone] Referring Provider: Timoteo Zhao, [address] [place] [address], [id number]. tel:[phone] [facility], [address] [place] [address], [id number], tel:[phone] [facility] No Information Dave Mahmood. [address] [place] [address], [id number], [place]. tel:[phone] [facility] [address], [place], [address]. tel:[phone] OFFICE/OUTPATI ENT VISIT, [facility], [address] [place] [address], [id number], [place] tel:[phone] [facility] 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 [address] [place] [address], [id number], [place]. tel:[phone] Referring Provider: Cherelle Borja [facility] [address], [place], [address]. tel:[phone] [facility], [address] [place] [address], [id number], [place] tel:[phone] [facility] No Information Dave Mahmood. [address] [place], [place], [id number], . tel:[phone] Referring Provider: Timoteo Zhao, [address] [place], [address]. tel:[phone] Family History Family Member Type Diagnosis Age At Onset No Information Payers Payer name Insurance type Covered green party ID Viet dillon(s) [facility] [id number] Social History Type Description Quantity Date Captured [...]
--- OUTSIDE RECORDS SUMMARY | 2024-05-18 20:37 | XMS_ITS | Encounter Summary ---
Author Organization [facility] Address [address] [place] [address] Care Team Providers Care Resident Assistant Cna Name Role Phone Jamal CARLISLE DO, Robert William Primary Care Provide r Unavailable Desiree Patrick MD Unavailable Farrah Nicole APRN,AIRPLANE PILOT PHOTOGRAMMETRY Unavailable Bry Echevarria MD Unavailable Jamal CARLISLE DO, Robert William Unavailable Unav Stephani Diaz MD Primary Care Provider Shruti Vergara RN Unavailable Unavailable Bianka Loera CNP Primary Care Provider [phone] Desiree Patrick MD Primary Care P rovider Encounter Details Date Type Department Care Team (Late st Contact Info) Description 11/26/2015 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 [id number]: 12.5 mCi (IV) for the rest injection. [id number]: 33.1 mCi (IV) for the stress injection. [...] function. Note: This study was performed by [facility] [facility]. Only the interpretation was performed at the [facility] [place]. Electronically signed Rajeev Barlow MD, [facility] Resist Coater Developer , 03:10 P A dsc/Doc#: [id number] cc: documented in this encounter Plan of Treatment Not on file documented as of this encounter Procedures Procedure Name Priority Date/Time Associated Diagnosis Comments MYOCARDIAL PERFUSION PHARMACOLOGIC STRESS 11/26/2015 documented in this encounter Results * MYOCARDIAL PERFUSION PHARMACOLOGIC STRESS (11/26/2015) Anatomical Region Laterality Modality Other 11/26/2015 Narrative Procedure Note Rajeev Barlow MD - 11/26/2015 12:00 AM CDT PERFORMED BY: VOY[facility] [place], [place] SITE: [place] INTERPRETED BY: [place], [place] PHARMACOLOGIC MYOCARDIAL PERFUSION SCAN Study [...] TYPE: Rest/stress, single isotope gated SPECT imaging. [id number]: 12.5 mCi (IV) for the rest injection. [id number]: 33.1 mCi (IV) for the stress injection. [...] function. Note: This study was performed by [facility]. Only theinterpretation was performed at the [facility]. Electronically signed Rajeev Barlow MD, [facility] Resist Coater Developer , 03:10 P A dsc/Doc#: [id number] cc: Rajeev Barlow MD CAR NUC MED/STRESS documented in this encounter Visit Diagnoses Not on filedocumented in this encounter Care Teams Resident Assistant Cna Relationship Specialty Start Date End Date Casey Berry II, DO PCP - General 11/22/06 08/17/19 Stephani Aleman MD PCP - General Family Medicine 08/18/19 09/16/20 Bianka Loera CNP [address] [place] [address] PCP - General Nurse Practitioner Family 09/17/2001/10 Desiree Patrick MD [address] [place] [address] PCP - General Electrophysiology 02/23/22 03/09/22 Desiree Patrick MD [address] [facility] [place] [address] 08/09/17 Farrah Nicole APRN,AIRPLANE PILOT PHOTOGRAMMETRY [address] [place] [address] 08/09/17 Bry Echevarria MD [address] [place] [address] 08/09/17 Casey Berry II, DO 08/09/17 Shruti Vergara RN RN Registered Nurse 08/27/20 documented as of this encounter Additional Source Comments PLEASE NOTE: Replies to this message will not be received.[facility]
--- OUTSIDE RECORDS SUMMARY | 2024-05-18 20:37 | XMS_ITS | Encounter Summary ---
Author Organization [facility] [facility] Address [address] [place] [address] Care Team Providers Care Skylights Assembler Name Role Phone Jamal CARLISLE DO, Robert William Primary Care Provide r Unavailable Desiree Patrick MD Unavailable Farrah Nicole APRN,ALEX Unavailable Bry Echevarria MD Unavailable Jamal CARLISLE DO, Robert William Unavailable Unav ailable Stephani Aleman MD Primary Care Provider [phone] Shruti Vergara RN Unavailable Unavailable Bianka Loera CNP Primary Care Provider [phone] Desiree Patrick MD Primary Care P rovider Encounter Details Date Type Department Care Team (Late st Contact Info) Description 12/01/2006 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 [address] [place] [address] Social History Tobacco Use Types [...] on filedocumented in this encounter Care Teams Skylights Assembler Relationship Specialty Start Date End Date Casey Berry II, DO PCP - General 11/22/06 08/17/19 Stephani Aleman MD PCP - General Family Medicine 08/18/19 09/16/20 Bianka Loera CNP [address] [place] [address] PCP - General Nurse Practitioner Family 09/17/2001/10 Desiree Patrick MD [address] [place] [address] PCP - General Electrophysiology 02/23/22 03/09/22 Desiree Patrick MD [address] [place] [address] 08/09/17 Farrah Nicole APRN,STORE TEAM LEADER [address] [place] [address] 08/09/17 Bry Echevarria MD [address] [place] [id number] 08/09/17 Casey Berry II, DO 08/09/17 Shruti Vergara, RN RN Registered Nurse 08/27/20 documented as of this encounter Additional Source Comments PLEASE NOTE: Replies to this message will not be received.[facility]
--- OUTSIDE RECORDS SUMMARY | 2024-05-18 20:37 | XMS_ITS | Encounter Summary ---
Author Organization [employer] Address [address] [place] [address] Care Team Providers Care Bleach Boiler Packer Name Role Phone Jamal CARLISLE DO, Robert William Primary Care Provide r Unavailable Desiree Patrick MD Unavailable Farrah Nicole APRN,[employer] Unavailable Bry Echevarria MD Unavailable Jamal CARLISLE DO, Robert William Unavailable Unav Stephani Diaz MD Primary Care Provider [phone] Shruti Vergara RN Unavailable Unavailable Bianka Loera CNP Primary Care Provider [phone] Desiree Patrick MD Primary Care P rovider Encounter Details Date Type Department Care Team (Late st Contact Info) Description 01/03/2014 Historical Conversion [facility] Medicine [address] [place] [address] Errol Berry II, DO Social History Tobacco [...] AM CDT CRISTIAN BLEDSOE : 1945 HX: [id number] DOS: 01/03/2014 CHIEF COMPLAINT: Back pain. HISTORY [...] by:ERROL BERRY D.O. Jan 17 2014 7:34AM CONTRACT MAIL CARRIER documented in this encounter Plan of Treatment Not on file documented as of this encounter Visit Diagnoses Not on filedocumented in this encounter Care Teams Bleach Boiler Packer Relationship Specialty Start Date End Date Errol Berry II, DO PCP - General 11/22/06 08/17/19 Stephani Aleman MD PCP - General Family Medicine 08/18/19 09/16/20 Bianka Loera MEDICAL ADVISOR [address] [place] [address] PCP - General Nurse Practitioner Family 09/17/20 7/12/31 Desiree Patrick MD [address] [place] [address] PCP - General Electrophysiology 02/23/22 03/09/22 Desiree Patrick MD [address] [place] [address] 08/09/17 Farrah Nicole APRN,[employer] [address] [place] [address] 08/09/17 Bry Echevarria MD [facility] [place] [address] 08/09/17 Errol Berry II, DO 08/09/17 Shruti Vergara RN RN Registered Nurse 08/27/20 documented as of this encounter Additional Source Comments PLEASE NOTE: Replies to this message will not be received.[facility]
--- OUTSIDE RECORDS SUMMARY | 2024-05-18 20:37 | XMS_ITS | Encounter Summary ---
Author Organization [employer] Address [address] [place] [address] Care Team Providers Care Real Estate Legal Assistant Name Role Phone Jamal CARLISLE DO, Robert William Primary Care Provide r Unavailable Desiree Patrick MD Unavailable Farrah Nicole APRN,PIPE BUFFER Unavailable [phone] Bry Echevarria MD Unavailable Jamal CARLISLE DO, Robert William Unavailable Unav Stephani Diaz MD Primary Care Provider Shruti Vergara RN Unavailable Unavailable Bianka Loera CNP Primary Care Provider Desiree Patrick MD Primary Care P rovider Encounter Details Date Type Department Care Team (Late st Contact Info) Description 01/31/2016 Historical Conversion [facility] Family Medicine [address] [place] [phone] Social History Tobacco Use Types Packs/Day Years [...] as of this encounter Procedure Notes * [facility] - 01/14/2017 12:00 AM CDTAssociated [...] by:Tiffani Carrero RN Jan 14 2017 11:11AM LEAN MANUFACTURING COORDINATOR * [facility] MICHELLEPROVIBRANDO - 12/23/2016 12:00 AM CDTAssociated [...] by:Tiffani Carrero RN Dec 23 2016 11:30AM LEAN MANUFACTURING COORDINATOR * [facility], GENERICPROVIDER - 12/02/2016 12:00 AM CDTAssociated Order(s): [...] by:Tiffani Carrero RN Dec 02 2016 4:10PM LEAN MANUFACTURING COORDINATOR * [facility], GENERICPROVIDER - 11/17/2016 12:00 AM CDTAssociated Order(s): [...] has an appointment next week with an psychologist to discuss a possible ablation. Patient denies any medication changes. INR tested today is therapeutic at 2.7 with the recommended range of 2.0 to 3.0. Patient will continue Coumadin at 5 mg daily with an INR recheck in two weeks. Patient verbalizes understanding. Electronically signed by:Tiffani Carrero RN Nov 17 2016 9:36AM LEAN MANUFACTURING COORDINATOR * [facility] GENERICPROChapman InstrumentsDER - 11/10/2016 12:00 AM CDTAssociated Order(s): ANTICOAGULATION [...] by:Tiffani Carrero RN Nov 10 2016 2:41PM LEAN MANUFACTURING COORDINATOR * [facility] GENERICPROVIDER - 10/29/2016 12:00 AM CDTAssociated Order(s): ANTICOAGULATION [facility] Name: CRISTIAN BLEDSOE : 1945 DOS: 10/29/2016 [...] by:Tiffani Carrero RN Oct 29 2016 3:44PM LEAN MANUFACTURING COORDINATOR * [facility] AUSTINPROChapman InstrumentsBRANDO - 10/23/2016 12:00 AM CDTAssociated Order(s): ANTICOAGULATION [facility] Name: CRISTIAN BLEDSOE : 1945 DOS: 10/23/2016 This is a patient of Dr. Berry. He is taking anticoagulation for a diagnosis of atrial fibrillation.He is scheduled for a prostate biopsy today at the [facility] with Dr. Maloney. Patient had his INR checked in the [facility] lab prior to his procedure [...] by:Tiffani Carrero RN Oct 26 2016 9:49AM LEAN MANUFACTURING COORDINATOR * [facility] AUSTINPROLUBNA - 10/13/2016 12:00 AM [...] will have his INR checked at the [facility] prior to his biopsy which [...] by:Tiffani Carrero RN Oct 13 2016 12:13PM LEAN MANUFACTURING COORDINATOR AMENDMENTS: 1. Patient states that he was in the [facility] ER on October 08 with a [...] by:Tiffani Carrero RN Oct 13 2016 12:36PM LEAN MANUFACTURING COORDINATOR * [facility], GENERICPROLUBNA - 09/15/2016 12:00 AM CSTAssociated Order(s): ANTICOAGULATION [facility] Name: CRISTIAN BLEDSOE : 1945 DOS: 09/15/2016 [...] by:Tiffani Carrero RN Sep 15 2016 2:04PM LEAN MANUFACTURING COORDINATOR * [facility], GENERICPROVIDER - 08/18/2016 12:00 AM CSTAssociated Order(s): ANTICOAGULATION [facility] Name: CRISTIAN BLEDSOE : 1945 DOS: 08/18/2016 [...] by:Tiffani Carrero RN Aug 18 2016 2:21PM LEAN MANUFACTURING COORDINATOR * [facility] GENERICPROVIBRANDO - 07/28/2016 12:00 AM CSTAssociated Order(s): ANTICOAGULATION [facility] Name: CRISTIAN BLEDSOE : 1945 DOS: 07/28/2016 [...] by:Tiffani Carrero RN Jul 28 2016 11:06AM LEAN MANUFACTURING COORDINATOR * [facility], GENERICPROVIDER - 07/14/2016 12:00 AM CSTAssociated Order(s): ANTICOAGULATION [facility] Name: CRISTIAN BLEDSOE : 1945 DOS: 07/14/2016 [...] by:Tiffani Carrero RN Jul 14 2016 11:21AM LEAN MANUFACTURING COORDINATOR * [facility], GENERICPROVIBRANDO - 06/30/2016 12:00 AM CSTAssociated Order(s): ANTICOAGULATION [facility] Name: CRISTIAN BLEDSOE : 1945 DOS: 06/30/2016 [...] by:Tiffani Carrero RN Jun 30 2016 9:24AM LEAN MANUFACTURING COORDINATOR * [facility] - 05/20/2016 12:00 AM CSTAssociated Order(s): ANTICOAGULATION [facility] Name: CRISTIAN BLEDSOE : 1945 DOS: 05/20/2016 [...] by:Tiffani Carrero RN May 20 2016 3:59PM LEAN MANUFACTURING COORDINATOR * [facility] MICHELLEPROGINABRANDO - 04/15/2016 [...] by:Tiffani Carrero RN Apr 15 2016 5:55PM LEAN MANUFACTURING COORDINATOR * [facility] MICHELLEPROVIBRANDO - 03/18/2016 12:00 [...] by:Tiffani Carrero RN Mar 18 2016 9:42AM LEAN MANUFACTURING COORDINATOR * [facility] AUSTINPROLUBNA - 03/09/2016 12:00 AM [...] Tiffani Carrero RN; Mar 09 2016 9:59AM LEAN MANUFACTURING COORDINATOR * [facility] MICHELLEPROVIBRANDO - 02/27/2016 12:00 [...] by:Tiffani Carrero RN Feb 27 2016 12:04PM LEAN MANUFACTURING COORDINATOR * [facility] GENERICPROVIBRANDO - 02/12/2016 12:00 AM CDTAssociated Order(s): [...] by:Tiffani Carrero RN Feb 12 2016 9:02AM LEAN MANUFACTURING COORDINATOR * [facility] GENERICPROVIBRANDO - 02/04/2016 12:00 AM CDTAssociated Order(s): ANTICOAGULATION [facility] Name: CRISTIAN BLEDSOE : 1945 DOS: 02/04/2016 [...] by:Tiffani Carrero RN Feb 04 2016 9:45AM LEAN MANUFACTURING COORDINATOR * [facility], GENERICPROVIDER - 01/31/2016 [...] by:Carlene Hargrove RN Jan 31 2016 2:45PM LEAN MANUFACTURING COORDINATOR documented in this encounter Plan of [...] - 01/14/2017 12:00 AM CDT [facility] [...] by:Tiffani Carrero RN Jan 14 2017 11:11AM LEAN MANUFACTURING COORDINATOR [facility] OTHER * ANTICOAGULATION (12/23/2016) Narrative Procedure Note [facility] - 12/23/2016 12:00 AM CDT [facility] Name: CRISTIAN BLEDSOE : 1945 DOS: 12/23/2016 This is a patient of Dr. Berry. He is here today for an anticoagulationassessment and INR check for a diagnosis of atrial fibrillation. Patientstates that he has been feeling well. He reports that he met with at [facility] and will begin radiation [...] by:Tiffani Carrero RN Dec 23 2016 11:30AM LEAN MANUFACTURING COORDINATOR [facility] OTHER * ANTICOAGULATION (12/02/2016) Narrative Procedure Note [facility] - 12/02/2016 12:00 AM CDT [facility] Name: CRISTIAN BLEDSOE : 1945 DOS: 12/02/2016 [...] by:Tiffani Carrero RN Dec 02 2016 4:10PM LEAN MANUFACTURING COORDINATOR [facility] OTHER * ANTICOAGULATION (11/17/2016) Narrative Procedure Note [facility] - 11/17/2016 12:00 AM CDT [facility] Name: CRISTIAN BLEDSOE : 1945 DOS: 11/17/2016 [...] by:Tiffani Carrero RN Nov 17 2016 9:36AM LEAN MANUFACTURING COORDINATOR [facility] OTHER * ANTICOAGULATION (11/10/2016) Narrative [facility] - 11/10/2016 12:00 AM CDT [facility] Name: CRISTIAN BLEDSOE : 1945 DOS: 11/10/2016 This is a patient of Dr. Berry. He is here today for an anticoagulationassessment and INR check for a diagnosis of atrial fibrillation. Patientstates that he has been feeling well. He reports that he has beendiagnosis with prostate cancer and will be meeting with Dr. Con[facility] at [facility] to find out information regarding radiation therapy. Patientdenies any medication changes. INR tested today is elevated at 3.6 withthe recommended range of 2.0 to 3.0. Patient will adjust Coumadin with ahold today (11/10), then take 5 mg daily with an INR recheck in one week.Patient verbalizes understanding. Electronically signed by:Tiffani Carrero RN Nov 10 2016 2:41PM LEAN MANUFACTURING COORDINATOR [facility] OTHER * ANTICOAGULATION (10/29/2016) Narrative Procedure Note [facility] - 10/29/2016 12:00 AM CDT [facility] Name: CRISTIAN BLEDSOE : 1945 DOS: 10/29/2016 [...] by:Tiffani Carrero RN Oct 29 2016 3:44PM LEAN MANUFACTURING COORDINATOR [facility] OTHER * ANTICOAGULATION (10/23/2016) Narrative Procedure Note [facility] - 10/23/2016 12:00 AM CDT [facility] Name: CRISTIAN BLEDSOE : 1945 DOS: 10/23/2016 This is a patient of Dr. Berry. He is taking anticoagulation for adiagnosis of atrial fibrillation. He is scheduled for a prostate biopsytoday at the [facility] with Dr. Maloney. Patient had his INR checkedin the [facility] lab prior to his procedure [...] by:Tiffani Carrero RN Oct 26 2016 9:49AM LEAN MANUFACTURING COORDINATOR [facility] OTHER * ANTICOAGULATION (10/13/2016) Narrative [facility] - 10[facility]13/2016 12:00 AM CDT [facility] which is [...] by:Tiffani Carrero RN Oct 13 2016 12:13PM LEAN MANUFACTURING COORDINATOR AMENDMENTS: 1. Patient states that he was in the [facility] ER on October 08 with arapid [...] by:Tiffani Carrero RN Oct 13 2016 12:36PM LEAN MANUFACTURING COORDINATOR [facility] OTHER * ANTICOAGULATION (09/15/2016) Narrative Procedure Note [facility] - 09/15/2016 12:00 AM CST [facility] Name: CRISTIAN [...] by:Tiffani Carrero RN Sep 15 2016 2:04PM LEAN MANUFACTURING COORDINATOR [facility] OTHER * ANTICOAGULATION (08/18/2016) Narrative Procedure Note [facility] - 08/18/2016 12:00 AM CST [facility] Name: CRISTIAN BLEDSOE : 1945 DOS: 08/18/2016 [...] by:Tiffani Carrero RN Aug 18 2016 2:21PM LEAN MANUFACTURING COORDINATOR [facility] OTHER * ANTICOAGULATION (07/28/2016) Narrative Procedure Note [facility] - 07/28/2016 12:00 AM CST [facility] Name: CRISTIAN BLEDSOE : 1945 DOS: 07/28/2016 [...] by:Tiffani Carrero RN Jul 28 2016 11:06AM LEAN MANUFACTURING COORDINATOR [facility] OTHER * ANTICOAGULATION (07/14/2016) Narrative Procedure Note [facility] - 07/14/2016 12:00 AM CST [facility] Name: CRISTIAN BLEDSOE : 1945 DOS: 07/14/2016 [...] by:Tiffani Carrero RN Jul 14 2016 11:21AM LEAN MANUFACTURING COORDINATOR [facility] OTHER * ANTICOAGULATION (06/30/2016) Narrative Procedure Note [facility] - 06/30/2016 12:00 AM CST [facility] Name: CRISTIAN BLEDSOE : 1945 DOS: 06/30/2016 [...] by:Tiffani Carrero RN Jun 30 2016 9:24AM LEAN MANUFACTURING COORDINATOR [facility] OTHER * ANTICOAGULATION (05/20/2016) Narrative Procedure Note [facility] - 05/20/2016 12:00 AM CST [facility] Name: CRISTIAN BLEDSOE : 1945 DOS: 05/20/2016 [...] by:Tiffani Carrero RN May 20 2016 3:59PM LEAN MANUFACTURING COORDINATOR [facility] OTHER * ANTICOAGULATION (04/15/2016) Narrative Procedure Note [facility] - 04/15/2016 12:00 AM CDT [facility] Name: CRISTIAN BLEDSOE : 1945 DOS: 04/15/2016 [...] by:Tiffani Carrero RN Apr 15 2016 5:55PM LEAN MANUFACTURING COORDINATOR [facility] OTHER * ANTICOAGULATION (03/18/2016) Narrative Procedure Note [facility] - 03/18/2016 12:00 AM CDT [facility] Name: CRISTIAN BLEDSOE : 1945 DOS: 03/18/2016 [...] by:Tiffani Carrero RN Mar 18 2016 9:42AM LEAN MANUFACTURING COORDINATOR [facility] OTHER * ANTICOAGULATION (03/09/2016) Narrative Procedure Note [facility] - 03/09/2016 12:00 AM CDT [facility] Comments [...] Tiffani Carrero RN; Mar 09 2016 9:59AMCST [facility] OTHER * ANTICOAGULATION (02/27/2016) Narrative Procedure Note [facility] - 02/27/2016 12:00 AM CDT [facility] Name: CRISTIAN BLEDSOE : 1945 DOS: 02/27/2016 [...] by:Tiffani Carrero RN Feb 27 2016 12:04PM LEAN MANUFACTURING COORDINATOR [facility] OTHER * ANTICOAGULATION (02/12/2016) Narrative Procedure Note [facility] - 02/12/2016 12:00 AM CDT [facility] Name: CRISTIAN BLEDSOE : 1945 DOS: 02/12/2016 [...] by:Tiffani Carrero RN Feb 12 2016 9:02AM LEAN MANUFACTURING COORDINATOR [facility] OTHER * ANTICOAGULATION (02/04/2016) Narrative Procedure Note [facility] - 02/04/2016 12:00 AM CDT [facility] Name: CRISTIAN BLEDSOE : 1945 DOS: 02/04/2016 [...] by:Tiffani Carrero RN Feb 04 2016 9:45AM LEAN MANUFACTURING COORDINATOR [facility] OTHER * ANTICOAGULATION (01/31/2016) Narrative Procedure Note [facility] - 01/31/2016 12:00 AM CDT Name: CRISTIAN BLEDOSE : 1945 DOS: 01/31/2016 He is a [...] by:Carlene Hargrove RN Jan 31 2016 2:45PM LEAN MANUFACTURING COORDINATOR [facility] OTHER documented in this encounter Visit Diagnoses Not on filedocumented in this encounter Care Teams Real Estate Legal Assistant Relationship Specialty Start Date End Date Casey Berry II, DO PCP - General 11/22/06 08/17/19 Stephani Aleman MD PCP - General Family Medicine 08/18/19 09/16/20 Bianka Loera CNP [address] [place] [phone] PCP - General Nurse Practitioner Family 09/17/20 7/2 12/31 Desiree Patrick MD [address] [place] [address] PCP - General Electrophysiology 02/23/22 03/09/22 Desiree Patrick MD [address] [place] [address] 08/09/17 Farrah Nicole APRN,PIPE BUFFER [address] [place] [address] 08/09/17 Bry Echevarria MD [address] [place] [address] [place] [address] 08/09/17 Casey Berry II, DO 08/09/17 Shruti Vergara, RN RN Registered Nurse 08/27/20 documented as of this encounter Additional Source Comments PLEASE NOTE: Replies to this message will not be received.[facility]
--- OUTSIDE RECORDS SUMMARY | 2024-05-18 20:37 | XMS_ITS | Encounter Summary ---
Author Organization [employer] Address [address] [place] [address] Care Team Providers Care Tool Maintenance Technician Name Role Phone Jamal CARLISLE DO, Robert William Primary Care Provide r Unavailable Desiree Patrick MD Unavailable Farrah Nicole APRN,JOWL TRIMMER Unavailable Bry Echevarria MD Unavailable [phone] Jamal CARLISLE DO, Robert William Unavailable Unav Stephani Diaz MD Primary Care Provider Shruti Vergara RN Unavailable Unavailable Bianka Loera CNP Primary Care Provider Desiree Patrick MD Primary Care P rovider Encounter Details Date Type Department Care Team (Late st Contact Info) Description 08/22/2014 Historical Conversion [facility] Family Medicine [address] [place] [phone] Casey Berry II, DO Social History Tobacco Use Types Packs/Day Years Used Date Smoking Tobacco: Never Assessed Sex and Gender Information Value Date Recorded Sex Assigned at Not on file Gender Identity Not on file Sexual Orientation Not on file documented as of this encounter Progress Notes * Casey Berry II, DO - 01/29/2015 12:00 AM CDT CRISTIAN BLEDSOE : 1945 HX: [id number] DOS: 01/29/2015 CHIEF COMPLAINT: Follow up after [...] by:Casey Berry D.O. Feb 11 2015 7:55AM SUPERVISOR LENDING ACTIVITIES * Casey Berry II, DO - 09/10/2014 12:00 AM CST CRISTIAN BLEDSOE : 1945 HX: [id number] DOS: 09/10/2014 CHIEF COMPLAINT: Follow up of [...] by:Casey Berry D.O. Sep 26 2014 3:33PM SUPERVISOR LENDING ACTIVITIES documented in this encounter Miscellaneous Notes * [...] you have any questions. Casey Berry DO [facility] Electronically signed by:DEYANIRA FRANCOIS Dec 06 2014 9:03AM SUPERVISOR LENDING ACTIVITIES documented in this encounter Plan of Treatment Not on file documented as of this encounter Visit Diagnoses Not on filedocumented in this encounter Care Teams Tool Maintenance Technician Relationship Specialty Start Date End Date Casey Berry II, DO PCP - General 11/22/06 08/17/19 Stephani Aleman MD PCP - General Family Medicine 08/18/19 09/16/20 Bianka Loera, SILVERING DEPARTMENT SUPERVISOR [address] [place] [phone] PCP - General Nurse Practitioner Family 09/17/2001/10 Desiree Patrick MD [address] [place] [address] PCP - General Electrophysiology 02/23/22 03/09/22 Desiree Patrick MD [address] [place] [address] 08/09/17 Farrah Nicole APRN,JOWL TRIMMER [address] [place] [address] 08/09/17 Bry Echevarria MD [address] [place] [address] [place] [address] 08/09/17 Casey Berry II, DO 08/09/17 Shruti Vergara RN RN Registered Nurse 08/27/20 documented as of this encounter Additional Source Comments PLEASE NOTE: Replies to this message will not be received.[facility] and [facility]
--- OUTSIDE RECORDS SUMMARY | 2024-05-18 20:37 | XMS_ITS | Continuity of Care Document ---
Author Organization [facility] Address [address] [place] [address] Phone Care Team Providers Care Hat And Cap Parts Cutter Hand Name Role Phone [facility] MD, [facility] Unavailable Unavailable Allergies, Adverse Reactions, Alerts Substance Reaction Status Criticality Sulfa (Sulfonamide Antibiotics) rash Active No Information PENICILLIN rash Active No Information Medications Medication Instructions Dosage Effective Dates (start - stop) Status Comments Bqbd-Mzrk-Ajcoh 1%/0.5%/.01% OPHTHALMIC DROPS Apply one drop to [...] Diagnoses Date Provider Providers Copied on Encounter [facility], [address] [place], [id number], [place] tel:[phone] [facility] No Information 2 [facility]. [address] [place], [id number]. tel:[phone] Referring Provider: Timoteo Zhao, [address] [place], [address] . tel:[phone] [facility] Ophthalmic Surgery, [address] [place], [place], [id number], [place] tel:[phone] [facility] No Information 2 [facility]. [address] [place], [id number]. tel:[phone] Referring Provider: Timoteo Zhao, [address] [place], [address] . tel:[phone] [facility] Ophthalmic Surgery, [address] [place], [id number], [place] tel:[phone] [facility] No Information 9 [facility]. [address] [place], [id number]. tel:[phone] Referring Provider: Timoteo Zhao, [address] [place], [address] . tel:[phone] [facility] Ophthalmic Surgery, [address] [place], [id number], [place] tel:[phone] [facility] No Information 9 [facility]. [address] [facility], [place], [place], [id number]. tel:[phone] Referring Provider: Timoteo Zhao, [address] [place] [address], [address] . tel:[phone] [facility], [address] [place], [place], [id number], tel:[phone] [facility] No Information 9 Dave Mahmood. [address] [place] [address], [id number], [place]. tel:[phone] Family History Family Member Type Diagnosis Age At Onset No Information Payers Payer name Insurance type Covered libertarian ID Authoriza tion(s) [facility] [id number] Social History Type Description Quantity Date Captured [...]
--- OUTSIDE RECORDS SUMMARY | 2024-05-18 20:37 | XMS_ITS | Encounter Summary ---
Author Organization [employer] Address [address] [place] [address] Care Team Providers Care Maintenance Repairman Name Role Phone Jamal CARLISLE DO, Robert William Primary Care Provide r Unavailable Desiree Patrick MD Unavailable aFrrah Nicole APRN,SLIP INJECTOR AND APPLICATOR Unavailable Bry Echevarria MD Unavailable Jamal CARLISLE DO, Robert William Unavailable Unav Stephani Diaz MD Primary Care Provider Shruti Vergara RN Unavailable Unavailable Bianka Loera CNP Primary Care Provider Desiree Patrick MD Primary Care P rovider Encounter Details Date Type Department Care Team (Late st Contact Info) Description 09/10/2014 Historical Conversion [facility] Family Medicine [address] [place] [phone] Casey Berry II, DO Social History Tobacco Use Types Packs/Day Years Used Date Smoking Tobacco: Never Assessed Sex and Gender Information Value Date Recorded Sex Assigned at Not on file Gender Identity Not on file Sexual Orientation Not on file documented as of this encounter Last Filed Vital Signs Vital Sign Reading Time Taken Comments Blood Pressure 130/80 09/10/2014 12:00 AM BULK PALLET BUILDER Pulse - - Temperature - - Respiratory Rate - - Oxygen Saturation - - Inhaled Oxygen Concentration - - Weight 93.9 kg (207 lb 0.2 oz) 09/10/2014 12:00 AM BULK PALLET BUILDER Height - - Body Mass Index 27.31 08/22/2014 12:00 AM BULK PALLET BUILDER documented in this encounter Plan of Treatment Not on file documented as of this encounter Visit Diagnoses Not on filedocumented in this encounter Care Teams Maintenance Repairman Relationship Specialty Start Date End Date Casey Berry II, DO PCP - General 11/22/06 08/17/19 Stephani Aleman MD PCP - General Family Medicine 08/18/19 09/16/20 Bianka Loera CNP [address] [place] [address] [address] [place] [phone] PCP - General Nurse Practitioner Family 09/17/2001/10 Desiree Patrick MD [address] [place] [address] PCP - General Electrophysiology 02/23/22 03/09/22 Desiree Patrick MD [address] [place] [address] 08/09/17 Farrah Nicole APRN,SLIP INJECTOR AND APPLICATOR [address] [place] [address] 08/09/17 Bry Echevarria MD [address] [place] [address] [place] [phone] 08/09/17 Casey Berry II, DO 08/09/17 Shruti Vergara RN RN Registered Nurse 08/27/20 documented as of this encounter Additional Source Comments PLEASE NOTE: Replies to this message will not be received.[facility] and [facility]
--- OUTSIDE RECORDS SUMMARY | 2024-05-18 20:38 | XMS_ITS | Encounter Summary ---
Author Organization [facility] Address [address] [place] [address] Care Team Providers Care Funeral Service Manager Name Role Phone Unavailable Primary Care Provider Unavailabl e Reason for Visit * Reason Comments WEIGHT LOSS Encounter Details Date Type Department Care Team (Late st Contact Info) Description 02/15/2024 Telephone [facility] [address] [place] [address] Ashely El, RN WEIGHT LOSS Social History [...]
[2024-05-18 20:52] LABS: Potassium* 4.1 mmol/L (3.6-5.1)
[2024-05-18 20:55] LABS: Blood Urea Nitrogen* 19 mg/dL (7-30); Creatinine* 0.8 mg/dL (0.5-1.5); Estimated Glomerular Filt Rate 90 ml/min
== END 2024-05-18 20:28 | disposition home or self-care (01) ==
LOC: NPINS 20:27
PROVIDERS: PCP Family Medicine; Visit Provider Family Medicine
DX: I48.0 Paroxysmal atrial fibrillation (principal)
CPT/HCPCS: 82565; 84132; 84520

== ENCOUNTER 2024-06-16 11:26 | Outpatient (CLI) | payer BC, SELFPAY ==
--- OUTSIDE RECORDS SUMMARY | 2024-06-16 11:31 | XMS_ITS | Clinical Summary ---
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 More than 4 times per year [...] and heating? Not hard at all 04/04/2021 [facility] - Occupational [...] place to sleep or slept in a mcc (including now)? No 04/04/2021 Depression (PHQ-9) Answer Date Recorded Last PHQ-9 Score Not on file 08/27/2022 Thoughts of self harm Not at all 08/27/2022 Education Answer Date Recorded What is the highest level of school you have completed or the highest degree you have received? Master's degree (e.g., MA, MS, Mirlande, MEd, MOBILE DISC JOCKEY, ROHIT) 08/19/2020 Sex and Gender Information Value Date Recorded Sex Assigned at Not on file Gender Identity Not on file Sexual Orientation Not on file Last Filed Vital Signs Vital Sign Reading Time Taken Comments Blood Pressure 122/78 12/16/2021 1:32 PM CDT Pulse 64 12/16/2021 1:32 PM CDT Temperature 36.9 C (98.4 F) 12/16/2021 1:32 PM CDT Respiratory Rate 16 12/16/2021 1:32 PM CDT [...] Additional history exists Influenza Vaccine (#1) 2024 2, 03/25/2021, 03/12/2020, [...] HEPATITIS C AB Routine 08/26/2021 10:09 AM TALENT DEVELOPMENT MANAGER Need for hepatitis C screening test COLONOSCOPY Routine 02/27/2020 8:05 AM CDT LIPID PANEL Routine 08/18/2019 9:23 AM TALENT DEVELOPMENT MANAGER Screening for lipid disorders from Last 3 Months or Most Recently Relevant to Health Maintenance Results * (ABNORMAL) HEPATITIS C AB (08/26/2021 10:09 AM TALENT DEVELOPMENT MANAGER) HCV Ab Reactive( A) Nonreactive 08/26/2021 7:41 PM TALENT DEVELOPMENT MANAGER [facility] Comment: This is a reportable disease sent to the [place] [facility]. 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 State of associated disease not determined. Blood VENOUS BLOOD / Unknown Venipuncture / Unknown 08/26/2021 10:09 AM TALENT DEVELOPMENT MANAGER 08/26/2021 10:09 AM TALENT DEVELOPMENT MANAGER Bianka Loera ICE CREAM TRUCK DRIVER LAB SEROLOGY ORDERAB LES [facility] - [facility] [address] [place] [address] * COLONOSCOPY (02/27/2020 8:05 AM CDT) 02/27/2020 8:05 AM CDT Narrative [facility] - 02/27/2020 9:[address] [facility] Patient Name: Rohan Carroll Procedure Date: 02/27/2020 8:05 AM Date of : 1945 Admit Type: Outpatient Age: 74 Room: [facility] Gender: Male Note Status: Finalized Attending MD: Dov Cole MD Procedure: Colonoscopy Indications: Screening for colorectal malignant neoplasm, Last colonoscopy: January 2010 Providers: Dov Cole MD Referring Provider: Stephani Aleman MD (Referring MD) Medicines: Midazolam 4 mg IV, Fentanyl 50 micrograms IV Complications: No immediate complications. Procedure: After I obtained informed consent, the scope was passed under direct vision. Throughout the procedure, the patient's blood pressure, pulse, and oxygen saturations were monitored continuously.The patient tolerated the procedure well. The quality of the bowel preparation was excellent. The [id number] was introduced through the anus and advanced to the cecum, identified by appendiceal orifice and ileocecal valve. Findings: Internal hemorrhoids were found during retroflexion. The hemorrhoids were Grade I (internal hemorrhoids that do not prolapse). A few diverticula were found in the sigmoid colon and descending colon. No neoplastic or malignant processes were noted during this study. No other significant abnormalities were identified in a careful examination of the remainder of the colon. Moderate Sedation: Moderate (conscious) sedation was administered by the endoscopy nurse and supervised by the endoscopist. The following parameters were monitored: oxygen saturation, heart rate, blood pressure, respiratory rate, EKG, adequacy of pulmonary ventilation, and response to care. Total physician intraservice time was 35 minutes. Impression: - Internal hemorrhoids. - Diverticulosis in the sigmoid colon and in the descending colon. - The exam was otherwise normal to the cecum. Recommendation: - Discharge patient to home. - Repeat colonoscopy for screening purposes in 10 years. This presumes the absence of symptoms and having no close family members with colon cancer or polyps and adequate overall general health. - This patient may now resume his/her routine activities, diet, and medications. - Patient has a contact number available for emergencies. The signs and symptoms of potential delayed complications were discussed with the patient. Return to normal activities tomorrow. Written discharge instructions were provided to the patient. Dov Cole MD 02/27/2020 [...] 8:05 AM Stephani Aleman MD GI PROCEDURES Performing Organization Address [facility] Co de Phone Number [facility] * (ABNORMAL) LIPID PANEL (08/18/2019 9:23 AM TALENT DEVELOPMENT MANAGER) Cholesterol 96 0 - 200 mg/dL 08/18/2019 7:32 PM TALENT DEVELOPMENT MANAGER [facility] Triglycerides 65 30 - 150 mg/dL 08/18/2019 7:32 PM TALENT DEVELOPMENT MANAGER [facility] Cholesterol, LDL (Calculated) 45 0 - 159 mg/dL 08/18/2019 7:32 PM TALENT DEVELOPMENT MANAGER [facility] Cholesterol, HDL 38(L) >40 mg/dL 08/18/19 20 7:32 PM TALENT DEVELOPMENT MANAGER [facility] Cholesterol, vLDL 13 mg/dL 020 7:32 PM TALENT DEVELOPMENT MANAGER [facility] Blood VENOUS BLOOD SPECIMEN / Unknown Venipuncture / Unknown 08/18/2019 9:23 AM TALENT DEVELOPMENT MANAGER 08/18/2019 9:23 AM TALENT DEVELOPMENT MANAGER Stephani Aleman MD LAB CHEMISTRY ORDERA BLES Performing Organization Address [facility] Co de Phone Number [facility] [address] [place] [address] from Last 3 Months or Most Recently Relevant to Health Maintenance Advance Directives Documents on File Type Date Recorded Patient Electronics Lead Expl anation Advanced Directives 08/23/2014 3:05 PM [facility] * Full Code (Latest Code Status on File) Date Activated Date Inactivated Comments 06/21/2017 3:50 PM 06/24/2017 4:37 PM * Full Code Date Activated Date Inactivated Comments 10/19/2016 4:45 PM 10/20/2016 8:57 PM * Full Code Date Activated Date Inactivated Comments 11/15/2015 11:16 PM 11/16/2015 11:46 AM Care Teams Computer Salesperson Retail Relationship Specialty Start Date End Date Desiree Patrick MD [address] [place] [address] 08/09/17 Farrah Nicole APRN,CENTRIFUGAL SUPERVISOR [address] [place] [address] 08/09/17 Bry Echevarria MD [address] [place] [place] [phone] 08/09/17 Casey Berry II, DO 08/09/17 Shruti Vergara RN RN Registered Nurse 08/27/20 Additional Source Comments PLEASE NOTE: Replies to this message will not be received.[facility] and [facility]
--- OUTSIDE RECORDS SUMMARY | 2024-06-16 11:31 | XMS_ITS | Encounter Summary ---
Author Organization [employer] Address [address] [place] [address] Care Team Providers Care Weir Fisherman Name Role Phone Jamal CARLISLE DO, Robert William Primary Care Provide r Unavailable Desiree Patrick MD Unavailable Farrah Nicole APRN,ROVING MARKER Unavailable Bry Echevarria MD Unavailable Jamal CARLISLE DO, Robert William Unavailable Unav Stephani Diaz MD Primary Care Provider [phone] Shruti Vergara RN Unavailable Unavailable Bianka Loera CNP Primary Care Provider Desiree Patrick MD Primary Care P rovider Encounter Details Date Type Department Care Team (Late st Contact Info) Description 09/19/2018 Historical Conversion [facility] Family Medicine [address] [place] [address] Trish Barone, PT Social History Tobacco Use [...] by:Trish Barone PT Oct 12 2018 5:27PM NEEDLE LOOM OPERATOR HELPER AMENDMENTS: 1. Patient received 4 feet of green theraband on this date of service. Electronically signed by:Trish Barone PT Oct 12 2018 5:28PM NEEDLE LOOM OPERATOR HELPER * Trish Barone, PT - 10/03/2018 12:00 [...] per day with the dogs. He attends [employer] with his 2 times a week. OBJECTIVE: [...] by:Trish Barone PT Oct 03 2018 1:23PM NEEDLE LOOM OPERATOR HELPER * Trish Barone, PT - 09/19/2018 12:00 AM CDT CRISTIAN BLEDSOE : 1945 HX: [id number] DOS: 09/19/2018 REFERRING PROVIDER: Casey Berry D.O. 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 He is [...] PATIENT RECEIVED: Patient received 30 minutes of [id number] evaluation with three or more comorbidities and three or more elements addressed. Clinical presentation is evolving and clinical complexity is moderate. Patient also received canalith repositioning maneuvers on this date. Trish Barone, PT, [place] #[id number] Electronically signed by:Trish Barone PT Sep 26 2018 8:37AM NEEDLE LOOM OPERATOR HELPER documented in this encounter Plan of Treatment Not on file documented as of this encounter Visit Diagnoses Not on filedocumented in this encounter Care Teams Weir Fisherman Relationship Specialty Start Date End Date Casey Berry II, DO PCP - General 11/22/06 08/17/19 Stephani Aleman MD PCP - General Family Medicine 08/18/19 09/16/20 Bianka Loera CNP [address] [place] [address] [place] [address] [place] [phone] PCP - General Nurse Practitioner Family 09/17/2001/10 Desiree Patrick MD [address] [place] [address] PCP - General Electrophysiology 02/23/22 03/09/22 Desiree Patrick MD [address] [place] [address] 08/09/17 Farrah Nicole APRN,ROVING MARKER [address] [place] [address] 08/09/17 Bry Echevarria MD [facility] [place] [address] 08/09/17 Casey Berry II, DO 08/09/17 Shruti Vergara RN RN Registered Nurse 08/27/20 documented as of this encounter Additional Source Comments PLEASE NOTE: Replies to this message will not be received.[facility] and [facility]
--- OUTSIDE RECORDS SUMMARY | 2024-06-16 11:31 | XMS_ITS ---
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 Past Plans No past plan information found. Radiation Treatments * No radiation treatments are documented for this patient in [facility]. Treatments may have been administered in another [...]
--- OUTSIDE RECORDS SUMMARY | 2024-06-16 11:31 | XMS_ITS | Clinical Summary ---
Author Organization [employer] Address [place], [place] [address] Care Team Providers Care Inseminator Name Role Phone Marli Sauceda MD Primary [...] 12 hours. Pt is due for labs/EKG August 2024 180 Capsule 05/22/2024 Active dofetilide (TIKOSYN) 250 mcg capsuleIndications :Paroxysmal atrial fibrillation (HC) Take 1 Capsule (250 mcg) by mouth every 12 hours. Pt is due for labs/EKG February 2024 180 Capsule 03/06/2024 4 Discontinue d(Reorder (E-cancel not sent)) Active Problems Problem Noted Date Diagnosed Date Ascending aorta dilatation 04/24/2022 PAF (paroxysmal atrial fibrillation) 04/24/2022 Parkinson disease 04/24/2022 Encounters Date Type Department Care Team Description 05/18/2024 Orders Only [facility] Scanner 1 scan: (1-Ord) [facility], NORMAL ECG, 05/18/2024 05/18/2024 Orders Only [facility] Scanner 1 scan: (1-Ord) [facility], LAB RESULTS, 05/18/2024 05/16/2024 Telephone [facility] [place] [address] [place] [address] Kiya Gomes RN Medication Management (Tikosyn/) 04/20/2024 8:30 AM CDT Office Visit [facility] [address] [place] [address] Shyann Douglas MD from Last 3 Months Social History Tobacco [...] Date/Time Associated Diagnosis Comments SCAN-ELECTROCARDIOG THEA EKG 05/18/2024 12:00 AM MEDICAL RECORD CONSULTANT SCAN-LABORATORY REPORT 05/18/2024 12:00 AM MEDICAL RECORD CONSULTANT from Last 3 Months Results * SCAN-LABORATORY REPORT (05/18/2024 12:00 AM MEDICAL RECORD CONSULTANT) Scanner OTHER * SCAN-ELECTROCARDIOGRAM EKG (05/18/2024 12:00 AM MEDICAL RECORD CONSULTANT) Scanner OTHER from Last 3 Months Care Teams Inseminator Relationship Specialty Start Date End Date Marli Sauceda MD [address] [place] [address] PCP - General Family Practice 03/13/22
--- OUTSIDE RECORDS SUMMARY | 2024-06-16 11:31 | XMS_ITS | Referral Summary ---
Author Organization [employer] Address [address] [place] [address] Care Team Providers Care Bottle Inspector Name Role Phone Desiree Patrick MD Unavailable Farrah Nicole APRN,FOOD TECHNOLOGY TEACHER Unavailable Bry Echevarria MD Unavailable [phone] Jamal CARLISLE DO, Robert William Unavailable Unav [...] ipratropium (ATROVENT) 21 mcg (0.03 %) nasal [place], Non-AerosolIndicatio ns:PND (post-nasal drip) 2 Sprays by [...] 11/09/2018 Muscle tightness 11/09/2018 Bilateral foot-drop 11/09/2018 [facility] (current) use of anticoagulants 2018 Encounter for [...] How often do you attend chur or congregational services? More than 4 times [...] and heating? Not hard at all 04/04/2021 [facility] ional Health - Occupational [...] place to sleep or slept in a long-term (including now)? No 04/04/2021 Depression (PHQ-9) Answer Date Recorded Last PHQ-9 Score Not on file 08/27/2022 Thoughts of self harm Not at all 08/27/2022 Education Answer Date Recorded What is the highest level of school you have completed or the highest degree you have received? Master's degree (e.g., MA, MS, Mirlande, MEd, CHLORINATION OPERATOR, ROHIT) 08/19/2020 Sex and Gender Information [...] HEPATITIS C AB Routine 08/26/2021 10:09 AM SOFTWARE PROGRAM MANAGER Need for hepatitis C screening test COLONOSCOPY Routine 02/27/2020 8:05 AM CDT LIPID PANEL Routine 08/18/2019 9:23 AM SOFTWARE PROGRAM MANAGER Screening for lipid disorders from Last 3 Months or Most Recently Relevant to Health Maintenance Results * (ABNORMAL) HEPATITIS C AB (08/26/2021 10:09 AM SOFTWARE PROGRAM MANAGER) HCV Ab Reactive( A) Nonreactive 08/26/2021 7:41 PM SOFTWARE PROGRAM MANAGER [facility] Comment: This is a reportable disease sent to the [facility]. 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 State of associated disease not determined. Blood VENOUS BLOOD / Unknown Venipuncture / Unknown 08/26/2021 10:09 AM SOFTWARE PROGRAM MANAGER 08/26/2021 10:09 AM SOFTWARE PROGRAM MANAGER Bianka A Luz Maria CAR WRECKER LAB SEROLOGY ORDERAB LES Performing Organization Address [facility] Co de Phone Number [facility] [address] [address] * COLONOSCOPY (02/27/2020 8:05 AM CDT) 02/27/2020 8:05 AM CDT Narrative [facility] - 02/27/2020 9:20 AM CDT [facility] Patient Name: Rohan Carroll Procedure Date: 02/27/2020 8:05 AM Date of : 1945 Admit Type: Outpatient Age: 74 Room: [facility] Gender: Male Note Status: Finalized Attending [...] of the bowel preparation was excellent. The [id number] was introduced through the anus and advanced [...] 8:05 AM Stephani Aleman MD GI PROCEDURES [employer] [facility] * (ABNORMAL) LIPID PANEL (08/18/2019 9:23 AM SOFTWARE PROGRAM MANAGER) Cholesterol 96 0 - 200 mg/dL 08/18/2019 7:32 PM SOFTWARE PROGRAM MANAGER [facility] - [facility] Triglycerides 65 30 - 150 mg/dL 08/18/2019 7:32 PM SOFTWARE PROGRAM MANAGER [facility] Cholesterol, LDL (Calculated) 45 0 - 159 mg/dL 08/18/2019 7:32 PM [facility] Cholesterol, HDL 38(L) >40 mg/dL 08/18/19 20 7:32 PM [facility] Cholesterol, vLDL 13 mg/dL 020 7:32 PM SOFTWARE PROGRAM MANAGER [facility] Blood VENOUS BLOOD SPECIMEN / Unknown Venipuncture / Unknown 08/18/2019 9:23 AM SOFTWARE PROGRAM MANAGER 08/18/2019 9:23 AM SOFTWARE PROGRAM MANAGER Stephani Aleman MD LAB CHEMISTRY ORDERA BLES [facility] [address] [place] [address] from Last 3 Months or Most Recently Relevant to Health Maintenance Advance Directives Documents on File Type Date Recorded Patient Jig And Fixture Repairer Expl anation Advanced Directives 08/23/2014 3:05 PM [facility] * Full Code (Latest Code Status on File) Date Activated Date Inactivated Comments 06/21/2017 3:50 PM 06/24/2017 4:37 PM * Full Code Date Activated Date Inactivated Comments 10/19/2016 4:45 PM 10/20/2016 8:57 PM * Full Code Date Activated Date Inactivated Comments 11/15/2015 11:16 PM 11/16/2015 11:46 AM Care Teams Bottle Inspector Relationship Specialty Start Date End Date Desiree Patrick MD [address] [place] [phone] 08/09/17 Farrah Nicole APRN,FOOD TECHNOLOGY TEACHER [address] [place] [phone] 08/09/17 Bry Echevarria MD [address] [place] [phone] 08/09/17 Casey Berry II, DO 08/09/17 Shruti Vergara, RN RN Registered Nurse 08/27/20 Additional Source Comments PLEASE NOTE: Replies to this message will not be received.[facility] and [facility]
--- OUTSIDE RECORDS SUMMARY | 2024-06-16 11:31 | XMS_ITS | Encounter Summary ---
Author Organization [employer] Address [address] [place] [address] Care Team Providers Care Cartography/Mapping Technician Name Role Phone Jamal CARLISLE DO, Robert William Primary Care Provide r Unavailable Desiree Patrick MD Unavailable Farrah Nicole APRN,FURNITURE REMOVALIST Unavailable [phone] Bry Echevarria MD Unavailable Jamal CARLISLE DO, Robert William Unavailable Unav Stephani Diaz MD Primary Care Provider [phone] Shruti Vergara RN Unavailable Unavailable Bianka Loera CNP Primary Care Provider Desiree Patrick MD Primary Care P rovider Encounter Details Date Type Department Care Team (Late st Contact Info) Description 09/08/2018 Historical Conversion [facility] Family Medicine [address] [place] [id number] Casey Berry II, DO Social History Tobacco [...] Comments Blood Pressure 122/74 09/08/2018 12:00 AM REFRACTORY TECHNICIAN Pulse - - Temperature - - Respiratory Rate - - Oxygen Saturation - - Inhaled Oxygen Concentration - - Weight 92.8 kg (204 lb 9.7 oz) 09/08/2018 12:00 AM REFRACTORY TECHNICIAN Height 184 cm (6' 0.44) 09/08/2018 12:00 AM REFRACTORY TECHNICIAN Body Mass Index 27.41 09/08/2018 12:00 AM REFRACTORY TECHNICIAN documented in this encounter Functional Status [...] on filedocumented in this encounter Care Teams Cartography/Mapping Technician Relationship Specialty Start Date End Date Casey Berry II, DO PCP - General 11/22/06 08/17/19 Stephani Aleman MD PCP - General Family Medicine 08/18/19 09/16/20 Bianka Loera CNP [address] [facility] [address] [place] [address] PCP - General Nurse Practitioner Family 09/17/2001/10 [place] [address] [place] [address] PCP - General Electrophysiology 02/23/22 03/09/22 Desiree Patrick MD [address] [place] [address] 08/09/17 Farrah Nicole APRN,FURNITURE REMOVALIST [address] [facility] [place] [address] 08/09/17 Bry Echevarria MD [address] [place] [address] [place] [address] 08/09/17 Casey Berry II, DO 08/09/17 Shruti Vergara RN RN Registered Nurse 08/27/20 documented as of this encounter Additional Source Comments PLEASE NOTE: Replies to this message will not be received.[facility] and [facility]
--- OUTSIDE RECORDS SUMMARY | 2024-06-16 11:31 | XMS_ITS | Encounter Summary ---
Author Organization [employer] Address [address] [place] [address] Care Team Providers Care Process Helper Name Role Phone Jamal CARLISLE DO, Robert William Primary Care Provide r Unavailable Desiree Patrick MD Unavailable Farrah Nicole APRN,VP PRODUCT Unavailable Bry Echevarria MD Unavailable Jamal CARLISLE DO, Robert William Unavailable Unav Stephani Diaz MD Primary Care Provider Shruti Vergara RN Unavailable Unavailable Bianka Loera CNP Primary Care Provider Desiree Patrick MD Primary Care P rovider Encounter Details Date Type Department Care Team (Late st Contact Info) Description 07/22/2018 Historical Conversion [facility] Family Medicine [address] [place] [address] Moon Maloney MD Social History Tobacco Use [...] Comments Blood Pressure 120/58 07/22/2018 12:00 AM POLYETHYLENE COMBINER Pulse - - Temperature - - Respiratory Rate - - Oxygen Saturation - - Inhaled Oxygen Concentration - - Weight 93.8 kg (206 lb 12.7 oz) 019 12:00 AM POLYETHYLENE COMBINER Height - - Body Mass Index 27.28 06/20/2018 8:23 AM POLYETHYLENE COMBINER documented in this encounter Functional Status Functional [...] filedocumented in this encounter Care Teams Process Helper Relationship Specialty Start Date End Date Casey Berry II, DO PCP - General 11/22/06 08/17/19 Stephani Aleman MD PCP - General Family Medicine 08/18/19 09/16/20 Bianka Loera CNP [address] [facility] 2 [place] [phone] PCP - General Nurse Practitioner Family 09/17/2001/10 [place] [address] [place] [address] PCP - General Electrophysiology 02/23/22 03/09/22 Desiree Patrick MD [address] [place] [address] 08/09/17 Farrah Nicole APRN,VP PRODUCT [address] [place] [address] 08/09/17 Bry Echevarria MD [address] [place] [address] 08/09/17 Casey Berry II, DO 08/09/17 Shruti Vergara RN RN Registered Nurse 08/27/20 documented as of this encounter Additional Source Comments PLEASE NOTE: Replies to this message will not be received.[facility] and [facility]
--- OUTSIDE RECORDS SUMMARY | 2024-06-16 11:31 | XMS_ITS | Encounter Summary ---
Author Organization [facility] Address [address] [place] [address] Care Team Providers Care Automotive Artist Name Role Phone Jamal CARLISLE DO, Robert William Primary Care Provide r Unavailable Desiree Patrick MD Unavailable Farrah Nicole APRN,ONCOLOGY NURSE NAVIGATOR Unavailable Bry Echevarria MD Unavailable [phone] Jamal CARLISLE DO, Robert William Unavailable Unav Stephani Diaz MD Primary Care Provider Shruti Vergara RN Unavailable Unavailable Bianka Loera CNP Primary Care Provider Desiree Patrick MD Primary Care P rovider Encounter Details Date Type Department Care Team (Late st Contact Info) Description 02/06/2019 HIM Medicinal Chemist [facility] [address] [address] Rakesh Williamson Chi, MD Social History Tobacco [...] ADULT WITH OR WITHOUT CONTRAST PERFORMED BY: [place] [place] SITE: [place] [place] INTERPRETED BY: [facility] [place], [place] TRANSTHORACIC ECHOCARDIOGRAM REPORT REFERRING DIAGNOSIS: Sleep [...] function. Note: This study was performed by [facility]. Only the interpretation was performed at the [facility] [place]. Electronically signed Rakesh Williamson MD Director Medical Affairs , 06:42 A A felipa/Doc#: [id number] cc: Antoine Fitzpatrick MD Adult Normal Value [...] Blood pressure: 139/86 mmHg Previous study: 01/06/2017 Aerial Installer: KRISTA documented in this encounter Plan of [...] - 02/06/2019 12:00 AM CDT PERFORMED BY: [place] [place] SITE: [place] [place] INTERPRETED BY: [facility] [place], [place] TRANSTHORACIC ECHOCARDIOGRAM REPORT REFERRING DIAGNOSIS: Sleep [...] function. Note: This study was performed by [facility] [place]. Only theinterpretation was performed at the [facility]. Electronically signed Rakesh Williamson MD Director Medical Affairs , 06:42 A A felipa/Doc#: [id number] cc: Antoine Fitzpatrick MD Adult Normal Value [...] Blood pressure: 139/86 mmHg Previous study: 01/06/2017 Aerial Installer: KRISTA Antoine Fitzpatrick MD,PHD CAR ULTRAS[place] documented in this encounter Visit Diagnoses Not on filedocumented in this encounter Care Teams Automotive Artist Relationship Specialty Start Date End Date Casey Berry II, DO PCP - General 11/22/06 08/17/19 Stephani Aleman MD PCP - General Family Medicine 2/7/20 3/8/21 Bianka Loera, AIRCRAFT RIGGING AND CONTROLS MECHANIC [address] [place] [phone] PCP - General Nurse Practitioner Family 09/17/20 712/31 Desiree Patrick MD [address] [place] [address] PCP - General Electrophysiology 02/23/22 03/09/22 Desiree Patrick MD [address] [place] [address] 08/09/17 Farrah Nicole APRN,ONCOLOGY NURSE NAVIGATOR [address] [place] [address] 08/09/17 Bry Echevarria MD [facility] [place] [phone] 08/09/17 Casey Berry II, DO 08/09/17 Shruti Vergara, RN RN Registered Nurse 08/27/20 documented as of this encounter Additional Source Comments PLEASE NOTE: Replies to this message will not be received.[facility] and [facility]
--- OUTSIDE RECORDS SUMMARY | 2024-06-16 11:31 | XMS_ITS | Encounter Summary ---
Author Organization [facility] Address [address] [place] [address] Care Team Providers Care Automotive Consultant Name Role Phone Desiree Patrick MD Unavailable Farrah Nicole APRN, CNS Unavailable [phone] Bry Echevarria MD Unavailable Jamal CARLISLE DO, Robert William Unavailable Unav ailable Shruti Vergara RN Unavailable Unavailable Desiree Patrick MD Primary Care P rovider Encounter Details Date Type Department Care Team (Late st Contact Info) Description 02/25/[address] [address] Social History Tobacco Use Types [...] How often do you attend chur or pentecostal services? More than 4 times per year 04/04/2021 Do you belong to any clubs o r organizations such as evangelical groups, unions, fraternal or athletic groups, or [...] heating? Not hard at all 04/04/2021 [facility] [place] [facility] Occupat ional Health - Occupational Stress [...] place to sleep or slept in a long term (including now)? No 04/04/2021 Depression (PHQ-9) Answer Date Recorded Last PHQ-9 Score 3 08/22/2021 Thoughts of self harm Not at all 08/22/2021 Education Answer Date Recorded What is the highest level of school you have completed or the highest degree you have received? Master's degree (e.g., MA, MS, [place]lande, MEd, BUSINESS QUALITY ASSURANCE ANALYST, [employer]OHIT) 08/19/2020 Sex and Gender Information [...] filedocumented in this encounter Care Teams Automotive Consultant Relationship Specialty Start Date End Date Desiree Patrick MD [address] [place] [address] PCP - General Electrophysiology 02/23/22 03/09/22 Desiree Patrick MD [address] [place] [address] 08/09/17 Farrah Nicole APRN,GRADING MACHINE FEEDER [address] [place] [address] 08/09/17 Bry Echevarria MD [address] [place] [address] 08/09/17 Casey Berry II, DO 08/09/17 Shruti Vergara RN RN Registered Nurse 08/27/20 documented as of this encounter Additional Source Comments PLEASE NOTE: Replies to this message will not be received.[facility] and [facility]
--- OUTSIDE RECORDS SUMMARY | 2024-06-16 11:31 | XMS_ITS | Encounter Summary ---
Author Organization [employer] Address [address] [place] [address] Care Team Providers Care Vegetable Farmer Name Role Phone Jamal CARLISLE DO, Robert William Primary Care Provide r Unavailable Desiree Patrick MD Unavailable Farrah Nicole APRN,COAT OPERATOR Unavailable [phone] Bry Echevarria MD Unavailable Jamal CARLISLE DO, Robert William Unavailable Unav Stephani Diaz MD Primary Care Provider Shruti Vergara RN Unavailable Unavailable Bianka Loera CNP Primary Care Provider [phone] Desiree Patrick MD Primary Care P rovider Encounter Details Date Type Department Care Team (Late st Contact Info) Description 09/08/2018 Historical Conversion [facility] Family Medicine [address] [place] [address] Casey Berry II, DO Social History Tobacco [...] DAILY CBC; Status:Resulted - Requires Verification; Done: 10Mnf4057 09:12AM Comprehensive Metabolic Panel; Status:Resulted - Requires Verification; Done: 09Jeu5250 09:12AM Lipid Panel; Status:Resulted - Requires Verification; Done: 08Sep2018 09:12AM Vitamin D Total [facility]; Status:Resulted - Requires Verification; Done: 08Sep2018 09:12AM Ataxia Drawing Fee; Status:Complete; Done: 08Sep2018 Balance Center Consult Consult Only Evaluation and Treatment Status: Hold For - Required information Requested for: [id number] Phone Number to Contact Patient: : See chart to Provider, Practice or Agency: : [facility] Folate; Status:Resulted - Requires Verification; Done: 08Sep2018 [...] 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 HEALTH CARE MAINTENANCE: Colonoscopy in 2009, due in 2019. Current Meds 1. Dofetilide 250 MCG Oral Capsule; TAKE 1 CAPSULE EVERY 12 HOURS; Last Rx:[id number] Ordered 2. Jantoven 5 MG Oral Tablet; TAKE 1 1/2 TABLET BY MOUTH ON WEDNESDAYS, AND 1 TABLET BY MOUTH ALL OTHER DAYS OF THE WEEK DIRECTED; Therapy: 13Apr2018 to (Evaluate:28Sep2018) Requested for: 64Guj5403; Last Rx:79Pku2144 Ordered 3. Lisinopril 10 MG Oral Tablet; TAKE ONE TABLET DAILY; Therapy: 18Oct2017 to Recorded 4. Metoclopramide HCl - 5 MG Oral Tablet; TAKE 1 TABLET BY MOUTH THREE TIMES DAILY WITH MEALS NEEDED; Therapy: 10Sep2014 to (Evaluate:98Wca0330) Requested for: 25Dde4680; Last Rx:80Keb3596 Ordered 5. Oxybutynin Chloride ER 10 MG Oral Tablet Extended Release 24 Hour; TAKE 1 TABLET DAILY; Therapy: 33Xfx7206 to (Evaluate:88Qdv3785) Requested for: 56Npt5224; Last Rx:63Vvs8109 Ordered 6. Polyethylene Glycol 3350 Oral Powder; take 17 grams in 8 ounces of fluid once daily as needed for constipation; Therapy: 97Lpv9605 to (Evaluate:27May2018); Last Rx:[id number] Ordered 7. Sildenafil Citrate 100 MG Oral Tablet; Take 1/2-1 tab 1 hour before sexual activity; Therapy: 15Kgw5811 to (Last Rx:95Peo5346) Requested for: 28Vwi9822 Ordered 8. Triamcinolone Acetonide 0.1 % External Lotion; APPLY 2-3 TIMES DAILY TO AFFECTED AREA(S); Therapy: 39Xjf7722 to (Last Rx:78Rug1445) Requested for: 38Bvn0026 Ordered Allergies 1. Penicillins 2. Sulfa Drugs [...] Prostate firm, no masses, nontender. Results/Data CBC 48Djg5621 09:12AM Jamal Casey FASTING Test Name Result [...] 0.9 L 1.0-4.7 Vitamin D Total [facility] 07Ray1527 09:12 Casey Berry Test Name Result Flag Reference Vitamin D Total - [facility] 20.9 ng/ml L 30-100 Deficiency <10ng/mL Insufficiency 10-29 ng/mL Sufficiency 30-100 ng/mL Possible Toxicity >100 ng/mL TSH 23Hxp5925 09:12 Casey Berry FASTING Test Name Result Flag Reference TSH 1.670 uIU/ml 0.30-4.70 Vitamin B12 08Sep2018 09:12AM Casey Berry Test Name Result Flag Reference Vitamin B12 382 pg/ml 200-1000 Folate 74Csh0765 09:12AM Casey Berry Test Name Result Flag Reference Folate >20.0 ng/ml H 6.6-19.9 Signatures Casey Berry II, D.Veena/jaj-28 REVISED NOTE 09/12/2018/naomie Electronically signed by : Casey Berry DO; Sep 09 2018 11:14AM WASHER MACHINE Electronically signed by : Casey Berry DO; Sep 12 2018 9:09AM WASHER MACHINE documented in this encounter Plan of Treatment Not on file documented as of this encounter Visit Diagnoses Not on filedocumented in this encounter Care Teams Vegetable Farmer Relationship Specialty Start Date End Date Casey Berry II, DO PCP - General 11/22/06 08/17/19 Stephani Aleman MD PCP - General Family Medicine 08/18/19 09/16/20 Bianka Loera PROFESSIONAL SERVICES SPECIALIST [address] [place] [phone] PCP - General Nurse Practitioner Family 09/17/20 712/31 Desiree Patrick MD [address] [place] [address] PCP - General Electrophysiology 02/23/22 03/09/22 eDsiree Patrick MD [address] [place] [address] 08/09/17 Farrah Nicole APRN,COAT OPERATOR [address] [place] [address] 08/09/17 Bry Echevarria MD [facility] [place] [address] 08/09/17 Casey Berry II, DO 08/09/17 Shruti Vergara RN RN Registered Nurse 08/27/20 documented as of this encounter Additional Source Comments PLEASE NOTE: Replies to this message will not be received.[facility] and [facility]
--- OUTSIDE RECORDS SUMMARY | 2024-06-16 11:32 | XMS_ITS | Encounter Summary ---
Author Organization [employer] Address [address] [place] [address] Care Team Providers Care Sandwich Machine Operator Name Role Phone Jamal CARLISLE DO, Robert William Primary Care Provide r Unavailable Desiree Patrick MD Unavailable Farrah Nicole APRN,POLE TESTER Unavailable Bry Echevarria MD Unavailable Jamal CARLISLE DO, Robert William Unavailable Unav Stephani Diaz MD Primary Care Provider Shruti Vergara RN Unavailable Unavailable Bianka Loera CNP Primary Care Provider [phone] Desiree Patrick MD Primary Care P rovider Encounter Details Date Type Department Care Team (Late st Contact Info) Description 11/30/2016 Historical Conversion [facility] Family Medicine [address] [place] [address] Casey Berry II, DO Social History Tobacco [...] on filedocumented in this encounter Care Teams Sandwich Machine Operator Relationship Specialty Start Date End Date Casey Berry II, DO PCP - General 11/22/06 08/17/19 Stephani Aleman MD PCP - General Family Medicine 08/18/19 09/16/20 Bianka Loera CNP [address] [place] [address] 2 [place] [phone] PCP - General Nurse Practitioner Family 09/17/2001/10 [place] [address] [place] [address] PCP - General Electrophysiology 02/23/22 03/09/22 Desiree Patrick MD [address] [place] [address] 08/09/17 Farrah Nicole APRN,POLE TESTER [address] [place] [address] 08/09/17 Bry Echevarria MD Formerly named [facility] [place] [address] 08/09/17 Casey Berry II, DO 08/09/17 Shruti Vergara RN RN Registered Nurse 08/27/20 documented as of this encounter Additional Source Comments PLEASE NOTE: Replies to this message will not be received.[facility] and [facility]
--- OUTSIDE RECORDS SUMMARY | 2024-06-16 11:32 | XMS_ITS | Encounter Summary ---
Author Organization [employer] Address [address] [place] [address] Care Team Providers Care Bag Bailer Name Role Phone Jamal CARLISLE DO, Robert William Primary Care Provide r Unavailable Desiree Patrick MD Unavailable Farrah Nicole APRN,RATE CLERK PASSENGER Unavailable Bry Echevarria MD Unavailable Jamal CARLISLE DO, Robert William Unavailable Unav Stephani Diaz MD Primary Care Provider Shruti Vergara RN Unavailable Unavailable Bianka Loera CNP Primary Care Provider Desiree Patrick MD Primary Care P rovider Encounter Details Date Type Department Care Team (Late st Contact Info) Description 07/01/2017 Historical Conversion [facility] Family [facility] [address] [facility] [place] [address] Bry Echevarria MD [address] [place] [address] Social History Tobacco Use Types [...] ap pointment with the anticoagulation clinic in [facility] on July 09, 2017.Follow-up with his [place] [facility] [place] [facility] [place] was corrected and updated today. The medicine list was reconciled. History of Present Illness Mr Carroll is a 71-year-old white male who comes to my on-call internal medicine clinic today forfollow-up of her recent hospitalization. His primary care physician is Dr. Berry. The patient was hospitalized in [place] last week and he underwent a cardioversion with the dofetilide. He is now onthat medication twice a day. His INR was slightly elevated at 3.2 when he was up in [place]. He was told to come in today for an INR check. He has not had any problems with bleeding. We did check his anticoagulation and his INR was therapeutic at 2.8. He will follow-up with the anticoagulation clinic in [facility] in 8 days and he will have [...] in atrial fibrillation.He is following up with [place] cardiology in 1 month. Allergies 1. Penicillins 2. Sulfa Drugs Vitals Vital Signs Recorded: [id number] 02:41PM Systolic 136, LUE, Sitting Diastolic 70, [...] questions appropriately. Results/Data Results, Free Text - [facility]: is therapeutic at 2.8. Signatures Electronically signed by : Bry Echevarria M.D.; Jul 01 2017 3:31PM SALES ASSISTANT ENTERTAINMENT AND MEDIA (Author) documented in this encounter Plan of Treatment Not on file documented as of this encounter Visit Diagnoses Not on filedocumented in this encounter Care Teams Bag Bailer Relationship Specialty Start Date End Date Casey Berry II, DO PCP - General 11/22/06 08/17/19 Stephani Aleman MD PCP - General Family Medicine 08/18/19 09/16/20 Bianka Loera, BENCH WORKER APPRENTICE [address] [place] [phone] PCP - General Nurse Practitioner Family 09/17/20 712/31 Desiree Patrick MD [address] [place] [address] PCP - General Electrophysiology 02/23/22 03/09/22 Desiree Patrick MD [address] [place] [address] 08/09/17 Farrah Nicole, COMBATANT DIVER QUALIFIED,[facility] [address] [place] [address] 08/09/17 Bry Echevarria MD [address] [place] [address] [place] [phone] 08/09/17 Casey Berry II, DO 08/09/17 Shruti Vergara, RN RN Registered Nurse 08/27/20 documented as of this encounter Additional Source Comments PLEASE NOTE: Replies to this message will not be received.[facility] and [facility]
--- OUTSIDE RECORDS SUMMARY | 2024-06-16 11:32 | XMS_ITS | Encounter Summary ---
Author Organization [employer] Address [address] [place] [address] Care Team Providers Care Phlebotomy Services Representative Name Role Phone Jamal CARLISLE DO, Robert William Primary Care Provide r Unavailable Desiree Patrick MD Unavailable Farrah Nicole APRN,RECRUITMENT INTERNSHIP Unavailable Bry Echevarria MD Unavailable Jamal CARLISLE DO, Robert William Unavailable Unav Stephani Diaz MD Primary Care Provider Shruti Vergara RN Unavailable Unavailable Bianka Loera CNP Primary Care Provider Desiree Patrick MD Primary Care P rovider Encounter Details Date Type Department Care Team (Late st Contact Info) Description 06/25/2017 Historical Conversion [facility] Family Medicine [address] [place] [address] Social History Tobacco Use Types Packs/Day Years [...] as of this encounter Progress Notes * [facility], GENERICPROVIDER - 06/25/2017 12:00 AM CST Medication Reconciliation Post Discharge Name: CRISTIAN BLEDSOE Date of Discharge: 06/24/2017 Current Meds 1. Digoxin 125 MCG Oral Tablet; Therapy: (Recorded:[id number]) to Recorded 2. DilTIAZem HCl - 60 MG Oral Tablet; TAKE 1 TABLET BY MOUTH DAILY; Therapy: 14Apr2017 to (Evaluate:12Dfw0518) Requested for: 64Yqw0404 Recorded 3. Dofetilide 250 MCG Oral Capsule; TAKE 1 CAPSULE TWICE DAILY; Therapy: (Recorded:30Sew8107) to Recorded 4. Metoclopramide HCl - 5 MG Oral Tablet (Reglan); TAKE 1 TABLET BY MOUTH THREE TIMES DAILY WITH MEALS; Therapy: 10Sep2014 to (Evaluate:17Sep2017) Requested for: 20May2017; Last Rx:20May2017 Ordered 5. Metoprolol Tartrate 50 MG Oral Tablet; TAKE 1 TABLET TWICE DAILY; Therapy: (Recorded:89Ynk5229) to Recorded 6. Tylenol Extra Strength 500 MG Oral Tablet; Therapy: (Recorded:66Tkn4411) to Recorded 7. Warfarin Sodium 5 MG Oral Tablet (Coumadin); Take as directed by [facility]; Therapy: 81Mct6214 to (Evaluate:28May2018) Requested for: 02Jun2017 Recorded Medication [...] INR checked next week. Reviewed 24 hour food preparer line, when to call PCP, and when to call 911. Patient voiced understanding. STACY Rasheed Follow-Up Recommendations Follow up with the following provider(s): cardiology 1 mo I reviewed with the patient the 24 hour nurse line and ecouraged them to call if they had any questions or concerns. Patient voiced understanding. Signatures Electronically signed by : Emma Estrella RN; Jun 25 2017 11:25AM TASSEL SNIPPER documented in this encounter Plan of Treatment Not on file documented as of this encounter Visit Diagnoses Not on filedocumented in this encounter Care Teams Phlebotomy Services Representative Relationship Specialty Start Date End Date Casey Berry II, DO PCP - General 11/22/06 08/17/19 Stephani Aleman MD PCP - General Family Medicine 08/18/19 09/16/20 Bianka Loera CNP [address] [facility] [address] [facility] [address] [place] [address] PCP - General Nurse Practitioner Family 09/17/20 7/12/31 Desiree Patrick MD [address] [place] [address] PCP - General Electrophysiology 02/23/22 03/09/22 Desiree Patrick MD [address] [place] [address] 08/09/17 Farrah Nicole APRN,RECRUITMENT INTERNSHIP [address] [place] [address] 08/09/17 Bry Echevarria MD [facility] [place] [address] 08/09/17 Casey Berry II, DO 08/09/17 Shruti Vergara RN RN Registered Nurse 08/27/20 documented as of this encounter Additional Source Comments PLEASE NOTE: Replies to this message will not be received.[facility] and [facility]
--- OUTSIDE RECORDS SUMMARY | 2024-06-16 11:32 | XMS_ITS | Encounter Summary ---
Author Organization [employer] Address [address] [place] [address] Care Team Providers Care Material Requirements Planning Manager Name Role Phone Jamal CARLISLE DO, Robert William Primary Care Provide r Unavailable Desiree Patrick MD Unavailable Farrah Nicole APRN,SEW OUT OPERATOR Unavailable Bry Echevarria MD Unavailable [phone] Jamal CARLISLE DO, Robert William Unavailable Unav Stephani Diaz MD Primary Care Provider Shruti Vergara RN Unavailable Unavailable Bianka Loera CNP Primary Care Provider Desiree Patrick MD Primary Care P rovider Encounter Details Date Type Department Care Team (Late st Contact Info) Description 08/31/2017 Historical Conversion [facility] Family Medicine [address] [facility] [place] [address] Desiree Rubi PAC [address] [place] [address] Social History Tobacco Use Types [...] Comments Blood Pressure 112/60 08/31/2017 12:00 AM SECURITY EXPERT Pulse - - Temperature - - Respiratory Rate - - Oxygen Saturation - - Inhaled Oxygen Concentration - - Weight 95.9 kg (211 lb 6.7 oz) 08/31/2017 12:00 AM SECURITY EXPERT Height - - Body Mass Index 27.89 07/27/2017 2:42 PM SECURITY EXPERT documented in this encounter Functional Status Functional [...] on filedocumented in this encounter Care Teams Material Requirements Planning Manager Relationship Specialty Start Date End Date Casey Berry II, DO PCP - General 11/22/06 08/17/19 Stephani Aleman MD PCP - General Family Medicine 08/18/19 09/16/20 Bianka Loera CNP [address] [place] [address] 2 [place] [address] PCP - General Nurse Practitioner Family 09/17/20 712/31 Desiree Patrick MD [address] [place] [address] PCP - General Electrophysiology 02/23/22 03/09/22 Desiree Patrick MD [address] [place] [address] 08/09/17 Farrah Nicole APRN,SEW OUT OPERATOR [address] [facility] [place] [address] 08/09/17 Bry Echevarria MD [address] [place] [address] [place] [address] 08/09/17 Casey Berry II, DO 08/09/17 Shruti Vergara RN RN Registered Nurse 08/27/20 documented as of this encounter Additional Source Comments PLEASE NOTE: Replies to this message will not be received.[facility] and [facility]
--- OUTSIDE RECORDS SUMMARY | 2024-06-16 11:32 | XMS_ITS | Encounter Summary ---
Author Organization [employer] Address [address] [place] [address] Care Team Providers Care Student Life Dean Name Role Phone Jamal CARLISLE DO, Robert William Primary Care Provide r Unavailable Desiree Patrick MD Unavailable Farrah Nicole APRN,TYPEWRITER TESTER Unavailable Bry Echevarria MD Unavailable [phone] Jamal CARLISLE DO, Robert William Unavailable Unav Stephani Diaz MD Primary Care Provider Shruti Vergara RN Unavailable Unavailable Bianka Loera CNP Primary Care Provider [phone] Desiree Patrick MD Primary Care P rovider Encounter Details Date Type Department Care Team (Late st Contact Info) Description 07/01/2017 Historical Conversion [facility] [address] [facility] [place] [address] Bry Echevarria MD [address] [place] [address] Social History Tobacco Use Types [...] Comments Blood Pressure 136/70 07/01/2017 12:00 AM HYDROELECTRIC MACHINERY MECHANIC Pulse - - Temperature - - Respiratory Rate - - Oxygen Saturation - - Inhaled Oxygen Concentration - - Weight 97.6 kg (215 lb 2.7 oz) 07/01/2017 12:00 AM HYDROELECTRIC MACHINERY MECHANIC Height - - Body Mass Index 28.39 06/21/2017 2:27 PM HYDROELECTRIC MACHINERY MECHANIC documented in this encounter Functional Status Functional [...] in this encounter Care Teams Student Life Dean Relationship Specialty Start Date End Date Casey Berry II, DO PCP - General 11/22/06 08/17/19 Stephani Aleman MD PCP - General Family Medicine 08/18/19 09/16/20 Bianka Loera CNP [address] [facility] 2 [place] [address] PCP - General Nurse Practitioner Family 09/17/2001/10 Desiree Patrick MD [address] [place] [address] PCP - General Electrophysiology 02/23/22 03/09/22 Desiree Patrick MD [address] [place] [address] 08/09/17 Farrah Nicole APRN,TYPEWRITER TESTER [address] [place] [address] 08/09/17 Bry Echevarria MD [address] [place] [address] [place] [address] 08/09/17 Caesy Berry II, DO 08/09/17 Shruti Vergara RN RN Registered Nurse 08/27/20 documented as of this encounter Additional Source Comments PLEASE NOTE: Replies to this message will not be received.[facility] and [facility]
--- OUTSIDE RECORDS SUMMARY | 2024-06-16 11:32 | XMS_ITS | Encounter Summary ---
Author Organization [employer] Address [address] [place] [address] Care Team Providers Care Amusement Park Ride Mechanic Name Role Phone Jamal CARLISLE DO, Robert William Primary Care Provide r Unavailable Desiree Patrick MD Unavailable Farrah Nicole APRN,K 8 SCHOOL PRINCIPAL Unavailable Bry Echevarria MD Unavailable Jamal CARLISLE DO, Robert William Unavailable Unav Stephani Diaz MD Primary Care Provider [phone] Shruti Vergara RN Unavailable Unavailable Bianka Loear CNP Primary Care Provider [phone] Desiree Patrick MD Primary Care P rovider Encounter Details Date Type Department Care Team (Late st Contact Info) Description 07/01/2017 Historical Conversion [facility] Family Medicine [address] [place] [address] Social History Tobacco Use Types Packs/Day Years [...] of this encounter Procedure Notes * [facility] DONTAELUBNA - 06/14/2018 12:00 AM CSTAssociated [...] by:Tiffani Carrero RN Jun 14 2018 7:43PM PHYSICIAN ALLERGIST IMMUNOLOGIST * [facility] MICHELLEPROVIDER - 05/17/2018 12:00 AM CSTAssociated Order(s): ANTICOAGULATION Anticoagulation Clinic [facility] Name: CRISTIAN BLEDSOE : 1945 [...] by:Tiffani Carrero RN May 17 2018 11:41AM PHYSICIAN ALLERGIST IMMUNOLOGIST * [facility] PREBLEPROVIDER - 04/26/2018 12:00 AM CDTAssociated Order(s): ANTICOAGULATION Anticoagulation Clinic [facility] Name: CRISTIAN BLEDSOE : 1945 [...] by:Tiffani Carrero RN Apr 26 2018 4:12PM PHYSICIAN ALLERGIST IMMUNOLOGIST * [facility] - 03/22/2018 12:00 AM CDTAssociated Order(s): ANTICOAGULATION Antico[facility] Name: CRISTIAN BLEDSOE : 1945 [...] by:Tiffani Carrero RN Mar 22 2018 3:06PM PHYSICIAN ALLERGIST IMMUNOLOGIST * [facility] DAYANNABRANDO - 02/23/2018 12:00 AM CDTAssociated Order(s): ANTICOAGULATION Anticoagulation [facility] Name: CRISTIAN BLEDSOE : 1945 DOS: [...] by:Tiffani Carrero RN Feb 23 2018 10:29AM PHYSICIAN ALLERGIST IMMUNOLOGIST * [facility] DONTAELUBNA - 02/09/2018 12:00 AM CDTAssociated Order(s): ANTICOAGULATION Anticoagulation [facility] Name: CRISTIAN BLEDSOE : 1945 DOS: [...] by:Tiffani Carrero RN Feb 09 2018 4:06PM PHYSICIAN ALLERGIST IMMUNOLOGIST * [facility] GENERICPROVIDER - 07/01/2017 12:00 AM CSTAssociated Order(s): ANTICOAGULATION Name: CRISTIAN BLEDSOE : 1945 DOS: 07/01/2017 Cristian is a patient of Dr. Berry. He is here today for anticoagulation assessment and INR check for adiagnosis of atrial fibrillation. Patient was seen in clinic by Dr. Echevarria today post cardioversion. Patient had a cardioversion on 06/24 at [facility] and he reports it went well. [...] by:Theresa Crowder RN Jul 01 2017 5:02PM PHYSICIAN ALLERGIST IMMUNOLOGIST documented in this encounter Plan of Treatment Not on file documented as of this encounter Procedures Procedure Name Priority Date/Time Associated Diagnosis Comments ANTICOAGULATION 06/14/2018 ANTICOAGULATION 05/17/2018 ANTICOAGULATION 04/26/2018 ANTICOAGULATION 03/22/2018 ANTICOAGULATION 02/23/2018 ANTICOAGULATION 02/09/2018 ANTICOAGULATION 07/01/2017 documented in this encounter Results * ANTICOAGULATION (06/14/2018) Narrative Procedure Note [facility], MICHELLEPROVIBRANDO - 06/14/2018 12:00 AM CST Name: [...] by:Tiffani Carrero RN Jun 14 2018 7:43PM PHYSICIAN ALLERGIST IMMUNOLOGIST [facility] OTHER * ANTICOAGULATION (05/17/2018) Narrative Procedure Note [facility] - 05/17/2018 12:00 AM CST Anticoagulation [facility] Name: CRISTIAN BLEDSOE : 1945 DOS: [...] by:Tiffani Carrero RN May 17 2018 11:41AM PHYSICIAN ALLERGIST IMMUNOLOGIST [facility] OTHER * ANTICOAGULATION (04/26/2018) Narrative Procedure Note [facility] - 04/26/2018 12:00 AM CDT Anticoagulation [facility] Name: CRISTIAN BLEDSOE : 1945 DOS: [...] by:Tiffani Carrero RN Apr 26 2018 4:12PM PHYSICIAN ALLERGIST IMMUNOLOGIST [facility] OTHER * ANTICOAGULATION (03/22/2018) Narrative Procedure Note [facility] - 03/22/2018 12:00 AM CDT [facility] Name: CRISTIAN BLEDSOE : 1945 DOS: [...] by:Tiffani Carrero RN Mar 22 2018 3:06PM PHYSICIAN ALLERGIST IMMUNOLOGIST [facility] OTHER * ANTICOAGULATION (02/23/2018) Narrative Procedure Note [facility] - 02/23/2018 12:00 AM CDT [facility] Name: CRISTIAN BLEDSOE : 1945 DOS: [...] by:Tiffani Carrero RN Feb 23 2018 10:29AM PHYSICIAN ALLERGIST IMMUNOLOGIST [facility] OTHER * ANTICOAGULATION (02/09/2018) Narrative Procedure Note [facility] - 02/09/2018 12:00 AM CDT Anticoagulation Clinic [facility] Name: CRISTIAN BLEDSOE : 1945 [...] by:Tiffani Carrero RN Feb 09 2018 4:06PM PHYSICIAN ALLERGIST IMMUNOLOGIST [facility] OTHER * ANTICOAGULATION (07/01/2017) Narrative Procedure Note [facility] - 07/01/2017 12:00 AM CST Name: CRISTIAN BLEDSOE : 1945 DOS: 07/01/2017 Cristian is a patient of Dr. Berry. He is here today for anticoagulationassessment and INR check for a diagnosis of atrial fibrillation. Patientwas seen in clinic by Dr. Echevarria today post cardioversion. Patient had acardioversion on 06/24 at [facility] and he reports it went well. [...] by:Theresa Crowder RN Jul 01 2017 5:02PM PHYSICIAN ALLERGIST IMMUNOLOGIST Genericprovider [facility] OTHER documented in this encounter Visit Diagnoses Not on filedocumented in this encounter Care Teams Amusement Park Ride Mechanic Relationship Specialty Start Date End Date Casey Berry II, DO PCP - General 11/22/06 08/17/19 Stephani Aleman MD PCP - General Family Medicine 08/18/19 09/16/20 Bianka Loera [place] [address] [facility] 2 [place] [address] PCP - General Nurse Practitioner Family 09/17/2001/10 Desiree Patrick MD [address] [place] [address] PCP - General Electrophysiology 02/23/22 03/09/22 [place] [address] [place] [address] 08/09/17 Farrah Nicole APRN,ALEX [address] [place] [address] 08/09/17 Bry Echevarria MD [address] [place] [address] 08/09/17 Casey Berry II, DO 08/09/17 Shruti Vergara RN RN Registered Nurse 08/27/20 documented as of this encounter Additional Source Comments PLEASE NOTE: Replies to this message will not be received.[facility] and [facility]
--- OUTSIDE RECORDS SUMMARY | 2024-06-16 11:32 | XMS_ITS | Encounter Summary ---
Author Organization [facility] Address [address] [place] [address] Care Team Providers Care Deckhand Maintenance Name Role Phone Jamal CARLISLE DO, Robert William Primary Care Provide r Unavailable Desiree Patrick MD Unavailable Farrah Nicole APRN,CREATIVE PERFUMER Unavailable Bry Echevarria MD Unavailable Jamal CARLISLE DO, Robert William Unavailable Unav Stephani Diaz MD Primary Care Provider Shruti Vergara RN Unavailable Unavailable Bianka Loera CNP Primary Care Provider Desiree Patrick MD Primary Care P rovider Encounter Details Date Type Department Care Team (Late st Contact Info) Description 09/07/2017 Historical Conversion [facility] Family Medicine [address] [place] [address] Casey Berry II, DO Social History Tobacco [...] Bilateral leg pain History of Present Illness Rjnlflx-frp-bbtt-old male who states that he was shoveling [...] TAKE 1 CAPSULE EVERY 12 HOURS; Last Rx:[id number] Ordered 2. Lisinopril 10 MG Oral Tablet; TAKE ONE TABLET DAILY; Therapy: 18Oct2017 to Recorded 3. Metoclopramide HCl - 5 MG Oral Tablet; TAKE 1 TABLET BY MOUTH THREE TIMES DAILY WITH MEALS NEEDED; Therapy: 10Sep2014 to (Evaluate:29Oct2017) Requested for: 07Tnf1750; Last Rx:[id number] Ordered 4. Polyethylene Glycol 3350 Oral Powder; take 17 grams in 8 ounces of fluid once daily as needed for constipation; Therapy: 81Hbt8591 to (Evaluate:27May2018); Last Rx:[id number] Ordered 5. Triamcinolone Acetonide 0.1 % External Lotion; APPLY 2-3 TIMES DAILY TO AFFECTED AREA(S); Therapy: 45Glq9949 to (Last Rx:79Rck0966) Requested for: 35Mef8949 Ordered 6. Warfarin Sodium 5 MG Oral Tablet; Take as directed by ACC; Therapy: 49Ztf6774 to (Evaluate:10Sep2018) Requested for: 15Sep2017 Recorded Allergies [...] Casey Berry DO; Oct 25 2017 10:02AM MAINTENANCE ELECTRICIAN documented in this encounter H&P Notes * [...] healthy by no longer smoking.; Status:Complete; Done: 99Cbj7892 Reason For Visit Routine history and physical. [...] DAILY; Therapy: 14Apr2017 to (Evaluate:27May2018) Requested for: 15Bon4448; Last Rx:[id number] Ordered 3. Dofetilide 250 MCG Oral Capsule; TAKE 1 CAPSULE EVERY 12 HOURS; Last Rx:[id number] Ordered 4. Metoclopramide HCl - 5 MG Oral Tablet; TAKE 1 TABLET BY MOUTH THREE TIMES DAILY WITH MEALS NEEDED; Therapy: 10Sep2014 to (Evaluate:29Oct2017) Requested for: 85Een6023; Last Rx:51Gur1365 Ordered 5. Metoprolol Tartrate 50 MG Oral Tablet; TAKE 1/2 TABLET TWICE DAILY; Therapy: (Recorded:37Btv0990) to Recorded 6. Polyethylene Glycol 3350 Oral Powder; take 17 grams in 8 ounces of fluid once daily as needed for constipation; Therapy: 01Jul2017 to (Evaluate:27May2018); Last Rx:[id number] Ordered 7. Warfarin Sodium 5 MG Oral Tablet; Take as directed by ACC; Therapy: 64Hst3443 to (Evaluate:28May2018) Requested for: 02Jun2017 Recorded Allergies 1. Penicillins 2. Sulfa Drugs PENICILLIN AND SULFA. Immunizations Prevnar in 2016. Pneumovax in 2009. Tetanus in 2013. Shingles in 2009. Vitals Recorded: 26Lte2323 08:20AM Systolic 144 Diastolic 85 Heart Rate [...] Casey Berry DO; Sep 20 2017 7:51AM MAINTENANCE ELECTRICIAN documented in this encounter Plan of Treatment Not on file documented as of this encounter Visit Diagnoses Not on filedocumented in this encounter Care Teams Deckhand Maintenance Relationship Specialty Start Date End Date Casey Berry II, DO PCP - General 11/22/06 08/17/19 Stephani Aleman MD PCP - General Family Medicine 08/18/19 09/16/20 Bianka Loera CNP [address] [place] [address] 2 [place] [phone] PCP - General Nurse Practitioner Family 09/17/2001/10 [place] [address] [place] [id number] PCP - General Electrophysiology 02/23/22 03/09/22 Desiree Patrick MD [address] [place] [address] 08/09/17 Farrah Nicole APRN,CREATIVE PERFUMER [address] [place] [address] 08/09/17 Bry Echevarria MD [address] [place] [address] 08/09/17 Casey Berry II, DO 08/09/17 Shruti Vergara RN RN Registered Nurse 08/27/20 documented as of this encounter Additional Source Comments PLEASE NOTE: Replies to this message will not be received.[facility] and [facility]
--- OUTSIDE RECORDS SUMMARY | 2024-06-16 11:32 | XMS_ITS | Encounter Summary ---
Author Organization [employer] Address [address] [place] [address] Care Team Providers Care Clinical Informatics Director Name Role Phone Jamal CARLISLE DO, Robert William Primary Care Provide r Unavailable Desiree Patrick MD Unavailable Farrah Nicole APRN,LEATHER LACER Unavailable Bry Echevarria MD Unavailable Jamal CARLISLE DO, Robert William Unavailable Unav Stephani Diaz MD Primary Care Provider Shruti Vergara RN Unavailable Unavailable Bianka Loera CNP Primary Care Provider Desiree Patrick MD Primary Care P rovider Encounter Details Date Type Department Care Team (Late st Contact Info) Description 09/07/2017 Historical Conversion [facility] Family Medicine [address] [place] [address] Casey Berry II, DO Social History Tobacco [...] Comments Blood Pressure 144/85 09/07/2017 12:00 AM AUTOMATION CONTROL INTEGRATOR Pulse - - Temperature - - Respiratory Rate - - Oxygen Saturation - - Inhaled Oxygen Concentration - - Weight 94.3 kg (207 lb 14.3 oz) 018 12:00 AM AUTOMATION CONTROL INTEGRATOR Height 185.5 cm (6' 1.03) 09/07/2017 1 2:00 AM AUTOMATION CONTROL INTEGRATOR Body Mass Index 27.4 09/07/2017 12:00 AM AUTOMATION CONTROL INTEGRATOR documented in this encounter Functional Status Functional [...] on filedocumented in this encounter Care Teams Clinical Informatics Director Relationship Specialty Start Date End Date Casey Berry II, DO PCP - General 11/22/06 08/17/19 Stephani Aleman MD PCP - General Family Medicine 08/18/19 09/16/20 Bianka Loera CNP [address] [facility] [address] [place] [address] PCP - General Nurse Practitioner Family 09/17/2001/10 [place] [address] [place] [address] PCP - General Electrophysiology 02/23/22 03/09/22 Desiree Patrick MD [address] [place] [address] 08/09/17 Farrah Nicole APRN,LEATHER LACER [address] [place] [address] 08/09/17 Bry Echevarria MD [address] [place] [address] [place] [address] 08/09/17 Casey Berry II, DO 08/09/17 Shruti Vergara RN RN Registered Nurse 08/27/20 documented as of this encounter Additional Source Comments PLEASE NOTE: Replies to this message will not be received.[facility]
--- OUTSIDE RECORDS SUMMARY | 2024-06-16 11:32 | XMS_ITS | Encounter Summary ---
Author Organization [facility] [employer] [facility] Address [address] [place] [address] Care Team Providers Care Rabbit Fancier Name Role Phone Jamal CARLISLE DO, Robert William Primary Care Provide r Unavailable Desiree Patrick MD Unavailable Farrah Nicole APRN,RESIDENTIAL REAL ESTATE AGENT Unavailable Bry Echevarria MD Unavailable Jamal CARLISLE DO, Robert William Unavailable Unav Stephani Diaz MD Primary Care Provider Shruti Vergara RN Unavailable Unavailable Bianka Loera CNP Primary Care Provider Desiree Patrick MD Primary Care P rovider Encounter Details Date Type Department Care Team (Late st Contact Info) Description 12/31/2016 HIM Seo Manager [facility] [address] [address] Gil Solares MD Social History Tobacco Use [...] ADULT WITH OR WITHOUT CONTRAST PERFORMED BY: [employer] [place], [place] SITE: [place]ARC[place], [place] INTERPRETED BY: [facility] [place], [place] TRANSTHORACIC ECHOCARDIOGRAM REPORT REFERRING DIAGNOSIS: Paroxysmal [...] fibrillation. Note: This study was performed by [employer] for [facility]. Only the interpretation wasperformed at the [facility] [place]. Electronically signed Gil Solares MD, [facility] Croze Machine Operator , 04:45 P A kmg/Doc#: [id number] cc: Adult Normal Value Adult Patient Values [...] Blood pressure: 116/81 mmHg Previous study: 11/19/15 Sommelier: [place] documented in this encounter Plan of [...] - 12/31/2016 12:00 AM CDT PERFORMED BY: [employer] S[place]Y [place], [place] SITE: MARCUS [place]OOK, [place] INTERPRETED BY: [facility] [place], [place] TRANSTHORACIC ECHOCARDIOGRAM REPORT REFERRING DIAGNOSIS: Paroxysmal [...] fibrillation. Note: This study was performed by [facility] for [facility].Only the interpretation was performed at the [facility]. Electronically signed Gil Solares MD, [facility] Croze Machine Operator , 04:45 P A taylag/Doc#: [id number] cc: Adult Normal Value Adult Patient Values [...] dt 254 ms E' sept 6.04 cm/sec [id number] ms E/e' 10 E' lat 9.65 cm/sec IMPRESSION: Patient height: 185 cm Patient weight: 94 kg Blood pressure: 116/81 mmHg Previous study: 11/19/15 Sommelier: HIEU Desiree NICHOLS documented in this encounter Visit Diagnoses Not on filedocumented in this encounter Care Teams Rabbit Fancier Relationship Specialty Start Date End Date Casey Berry II, DO PCP - General 11/22/06 08/17/19 Stephani Aleman MD PCP - General Family Medicine 08/18/19 09/16/20 Bianka Loera, MANAGER GLOBAL COMMUNICATIONS [address] [place] [phone] PCP - General Nurse Practitioner Family 09/17/20 712/31 Desiree Patrick MD [address] [place] [address] PCP - General Electrophysiology 02/23/22 03/09/22 Desiree Patrick MD [address] [place] [address] 08/09/17 Farrah Nicole APRN,RESIDENTIAL REAL ESTATE AGENT [address] [place] [address] 08/09/17 Bry Echevarria MD [address] [place] [place] [address] 08/09/17 Casey Berry II, DO 08/09/17 Shruti Vergara RN RN Registered Nurse 08/27/20 documented as of this encounter Additional Source Comments PLEASE NOTE: Replies to this message will not be received.[facility] and [facility]
--- OUTSIDE RECORDS SUMMARY | 2024-06-16 11:32 | XMS_ITS | Encounter Summary ---
Author Organization [employer] Address [address] [place] [address] Care Team Providers Care Medical Receptionist Assistant Name Role Phone Jamal CARLISLE DO, Robert William Primary Care Provide r Unavailable Desiree Patrick MD Unavailable Farrah Nicole APRN,COLOR GRINDER Unavailable Bry Echevarria MD Unavailable [phone] Jamal CARLISLE DO, Robert William Unavailable Unav Stephani Diaz MD Primary Care Provider Shruti Vergara RN Unavailable Unavailable Bianka Loera CNP Primary Care Provider Desiree Patrick MD Primary Care P rovider Encounter Details Date Type Department Care Team (Late st Contact Info) Description 11/06/2016 Historical Conversion [facility] Family Medicine [address] [place] [address] Moon Maloney MD Social History Tobacco Use [...] filedocumented in this encounter Care Teams Medical Receptionist Assistant Relationship Specialty Start Date End Date Casey Berry II, DO PCP - General 11/22/06 08/17/19 Stephani Aleman MD PCP - General Family Medicine 08/18/19 09/16/20 Bianka Loera CNP [address] [place] [address] 2 [place] [phone] PCP - General Nurse Practitioner Family 09/17/2001/10 Desiree Patrick MD [address] [place] [address] PCP - General Electrophysiology 02/23/22 03/09/22 Desiree Patrick MD [address] [place] [address] 08/09/17 Farrah Nicole APRN,COLOR GRINDER [address] [place] [address] 08/09/17 Bry Echevarria MD [address] [place] [address] 08/09/17 Casey Berry II, DO 08/09/17 Shruti Vergara RN RN Registered Nurse 08/27/20 documented as of this encounter Additional Source Comments PLEASE NOTE: Replies to this message will not be received.[facility] and [facility]
--- OUTSIDE RECORDS SUMMARY | 2024-06-16 11:32 | XMS_ITS | Encounter Summary ---
Author Organization [employer] Address [address] [place] [address] Care Team Providers Care Research Support Specialist Name Role Phone Jamal CARLISLE DO, Robert William Primary Care Provide r Unavailable Desiree Patrick MD Unavailable Farrah Nicole APRN,BAND NAILER Unavailable Bry Echevarria MD Unavailable [phone] Jamal CARLISLE DO, Robert William Unavailable Unav Stephani Diaz MD Primary Care Provider Shruti Vergara RN Unavailable Unavailable Bianka Loera CNP Primary Care Provider Desiree Patrick MD Primary Care P rovider Encounter Details Date Type Department Care Team (Late st Contact Info) Description 10/18/2017 Historical Conversion [facility] Family Medicine [address] [place] [address] Casey Berry II, DO Social History Tobacco [...] Body Mass Index 27.09 09/07/2017 12:00 AM CONCRETE WORKER documented in this encounter Functional Status Functional [...] on filedocumented in this encounter Care Teams Research Support Specialist Relationship Specialty Start Date End Date Casey Berry II, DO PCP - General 11/22/06 08/17/19 Stephani Aleman MD PCP - General Family Medicine 08/18/19 09/16/20 Bianka Loera CNP [address] [facility] [place] [phone] PCP - General Nurse Practitioner Family 09/17/2001/10 [place] [address] [place] [address] PCP - General Electrophysiology 02/23/22 03/09/22 Desiree Patrick MD [address] [place] [address] 08/09/17 Farrah Nicole APRN,BAND NAILER [address] [place] [address] 08/09/17 Bry Echevarria MD [address] [place] [address] 08/09/17 Casey Berry II, DO 08/09/17 Shruti Vergara RN RN Registered Nurse 08/27/20 documented as of this encounter Additional Source Comments PLEASE NOTE: Replies to this message will not be received.[facility] and [facility]
--- OUTSIDE RECORDS SUMMARY | 2024-06-16 11:32 | XMS_ITS | Encounter Summary ---
Author Organization [employer] Address [address] [place] [address] Care Team Providers Care Staff Development Manager Name Role Phone Jamal CARLISLE DO, Robert William Primary Care Provide r Unavailable Desiree Patrick MD Unavailable Farrah Nicole APRN,WINE MASTER Unavailable [phone] Bry Echevarria MD Unavailable Jamal CARLISLE DO, Robert William Unavailable Unav Stephani Diaz MD Primary Care Provider Shruti Vergara RN Unavailable Unavailable Bianka Loera CNP Primary Care Provider Desiree Patrick MD Primary Care P rovider Encounter Details Date Type Department Care Team (Late st Contact Info) Description 06/23/2018 Historical Conversion [facility] Family Medicine [address] [place] [address] Moon Maloney MD Social History Tobacco Use [...] MD - 07/22/2018 12:00 AM CST UROLOGY [facility] CRISTIAN BLEDSOE : 1945 HX: [id number] DOS: 07/22/2018 SUBJECTIVE: Cristian saw me on [...] Moon Maloney M.D./la-15 cc: Casey Berry II, D.O./[facility] Electronically signed by:Moon Maloney M.D. Jul 27 2018 9:15AM SALES CORRESPONDENCE CLERK * Moon Maloney MD - 06/23/2018 12:00 AM CST UROLOGY CRISTIAN BLEDSOE : [id number] 06/23/2018 SUBJECTIVE: Cristian comes to see me [...] short-term ADT. He is not on any AUDIO VISUAL EQUIPMENT RENTAL CLERK. His most recent PSA was 0.051 so [...] Moon K. Gemar, M.D./mdh-14 cc: Dr. Kofi Navarro-[facility] Electronically signed by:Moon Maloney M.D. Jun 24 2018 12:40PM SALES CORRESPONDENCE CLERK documented in this encounter Plan of Treatment Not on file documented as of this encounter Visit Diagnoses Not on filedocumented in this encounter Care Teams Staff Development Manager Relationship Specialty Start Date End Date Casey Berry II, DO PCP - General 11/22/06 08/17/19 Stephani Aleman MD PCP - General Family Medicine 08/18/19 09/16/20 Bianka Loera CNP [address] [facility] [address] [place] [phone] PCP - General Nurse Practitioner Family 09/17/2001/10 Desiree Patrick MD [address] [place] [address] PCP - General Electrophysiology 02/23/22 03/09/22 Desiree Patrick MD [address] [place] [address] 08/09/17 Farrah Nicole APRN,WINE MASTER [address] [place] [address] 08/09/17 Bry Echevarria MD [facility] [address] [place] [address] 08/09/17 Casey Berry II, DO 08/09/17 Shruti Vergara RN RN Registered Nurse 08/27/20 documented as of this encounter Additional Source Comments PLEASE NOTE: Replies to this message will not be received.[facility] and [facility]
--- OUTSIDE RECORDS SUMMARY | 2024-06-16 11:32 | XMS_ITS | Encounter Summary ---
Author Organization [employer] Address [address] [place] [address] Care Team Providers Care Certified Welder Name Role Phone Jamal CARLISLE DO, Robert William Primary Care Provide r Unavailable Desiree Patrick MD Unavailable Fararh Nicole APRN,CHASSIS MECHANIC Unavailable [phone] Bry Echevarria MD Unavailable Jamal CARLISLE DO, Robert William Unavailable Unav Stephani Diaz MD Primary Care Provider Shruti Vergara RN Unavailable Unavailable Bianka Loera CNP Primary Care Provider Desiree Patrick MD Primary Care P rovider Encounter Details Date Type Department Care Team (Late st Contact Info) Description 12/31/2016 Historical Conversion [facility] Family Medicine [address] [facility] [place] [address] Desiree Rubi PAC [address] [place] [address] Social History Tobacco Use Types [...] filedocumented in this encounter Care Teams Certified Welder Relationship Specialty Start Date End Date Casey Berry II, DO PCP - General 11/22/06 08/17/19 Stephani Aleman MD PCP - General Family Medicine 08/18/19 09/16/20 Bianka Loera CNP [address] [facility] 2 [place] [address] PCP - General Nurse Practitioner Family 09/17/2001/10 Desiree Patrick MD [address] [place] [address] PCP - General Electrophysiology 02/23/22 03/09/22 Desiree Patrick MD [address] [place] [address] 08/09/17 Farrah Nicole APRN,CHASSIS MECHANIC [address] [place] [address] 08/09/17 Bry Echevarria MD [address] [place] [address] [place] [address] 08/09/17 Casey Berry II, DO 08/09/17 Shruti Vergara RN RN Registered Nurse 08/27/20 documented as of this encounter Additional Source Comments PLEASE NOTE: Replies to this message will not be received.[facility] and [facility]
--- OUTSIDE RECORDS SUMMARY | 2024-06-16 11:32 | XMS_ITS | Encounter Summary ---
Author Organization [employer] Address [address] [place] [address] Care Team Providers Care Sandfill Operator Surface Name Role Phone Jamal CARLISLE DO, Robert William Primary Care Provide r Unavailable Desiree Patrick MD Unavailable Farrah Nicole APRN,SOLUTIONS SALES CONSULTANT Unavailable [phone] Bry Echevarria MD Unavailable [phone] Jamal CARLISLE DO, Robert William Unavailable Unav Stephani Diaz MD Primary Care Provider Shruti Vergara RN Unavailable Unavailable Bianka Loera CNP Primary Care Provider Desiree Patrick MD Primary Care P rovider Encounter Details Date Type Department Care Team (Late st Contact Info) Description 04/06/2017 Historical Conversion [facility] Family Medicine [address] [place] [address] Casey Berry II, DO Social History Tobacco [...] on filedocumented in this encounter Care Teams Sandfill Operator Surface Relationship Specialty Start Date End Date Casey Berry II, DO PCP - General 11/22/06 08/17/19 Stephani Aleman MD PCP - General Family Medicine 08/18/19 09/16/20 Bianka Loera CNP [address] [facility] 2 [place] [phone] PCP - General Nurse Practitioner Family 09/17/2001/10 [place] [address] [place] [phone] PCP - General Electrophysiology 02/23/22 03/09/22 Desiree Patrick MD [address] [place] [address] 08/09/17 Farrah Nicole APRN,SOLUTIONS SALES CONSULTANT [address] [place] [address] 08/09/17 Bry Echevarria MD [address] [place] [address] 08/09/17 Casey Berry II, DO 08/09/17 Shruti Vergara RN RN Registered Nurse 08/27/20 documented as of this encounter Additional Source Comments PLEASE NOTE: Replies to this message will not be received.[facility] and [facility]
--- OUTSIDE RECORDS SUMMARY | 2024-06-16 11:32 | XMS_ITS | Encounter Summary ---
Author Organization [employer] Address [address] [place] [address] Care Team Providers Care Assistant Corporate Secretary Name Role Phone Jamal CARLISLE DO, Robert William Primary Care Provide r Unavailable Desiree Patrick MD Unavailable Farrah Nicole APRN,WALLPAPER HANGER HELPER Unavailable [phone] Bry Echevarria MD Unavailable Jamal CARLISLE DO, Robert William Unavailable Unav Stephani Diaz MD Primary Care Provider Shruti Vergara RN Unavailable Unavailable Bianka Loera CNP Primary Care Provider [phone] Desiree Patrick MD Primary Care P rovider Encounter Details Date Type Department Care Team (Late st Contact Info) Description 03/01/2018 Historical Conversion [facility] Family Medicine [address] [facility] [place] [address] Desiree Rubi PAC [address] [place] [address] Social History Tobacco Use Types [...] Body Mass Index 26.81 09/07/2017 12:00 AM HISTOTECHNOLOGIST documented in this encounter Functional Status Functional [...] CDT UROLOGY [facility]RISTIAN BLEDSOE : 1945 HX: [id number] DOS: 03/01/2018 HISTORY OF PRESENT ILLNESS: This [...] think he normally sees Farrah Jacobo APRN, WALLPAPER HANGER HELPER, at the [facility], so we will try to [...] above. ASSESSMENT: 1. 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 He [...] meantime we will check with Cardiology in [place] about the option of Viagra or Cialis [...] P.A.-C./jmf- 24 cc: Jose Winslow M.D./Radiation On[facility] cc: Casey Berry D.O./[facility] cc: Moon Maloney M.D./[facility] Electronically signed by:Desiree Rubi PA-C Mar 04 2018 1:27PM HISTOTECHNOLOGIST documented in this encounter Plan of Treatment Not on file documented as of this encounter Visit Diagnoses Not on filedocumented in this encounter Care Teams Assistant Corporate Secretary Relationship Specialty Start Date End Date Casey Berry II, DO PCP - General 11/22/06 08/17/19 Stephani Aleman MD PCP - General Family Medicine 08/18/19 09/16/20 Bianka Loera SCRUB NURSE [address] [place] [address] PCP - General Nurse Practitioner Family 09/17/20 712/31 Desiree Patrick MD [address] [place] [address] PCP - General Electrophysiology 02/23/22 03/09/22 Desiree Patrick MD [address] [place] [address] 08/09/17 Farrah Nicole APRN,WALLPAPER HANGER HELPER [address] [place] [address] 08/09/17 Bry Echevarria MD [facility] [place] [address] 08/09/17 Casey Berry II, DO 08/09/17 Shruti Vergara RN RN Registered Nurse 08/27/20 documented as of this encounter Additional Source Comments PLEASE NOTE: Replies to this message will not be received.[facility] and [facility]
--- OUTSIDE RECORDS SUMMARY | 2024-06-16 11:32 | XMS_ITS | Encounter Summary ---
Author Organization [employer] Address [address] [place] [address] Care Team Providers Care Bench Carpenter Name Role Phone Jamal CARLISLE DO, Robert William Primary Care Provide r Unavailable Desiree Patrick MD Unavailable Farrah Nicole APRN,DOCTOR OF NURSE ANESTHESIA PRACTICE Unavailable [phone] Bry Echevarria MD Unavailable Jamal CARLISLE DO, Robert William Unavailable Unav Stephani Diaz MD Primary Care Provider [phone] Shurti Vergara RN Unavailable Unavailable Bianka Loera CNP Primary Care Provider [phone] Desiree Patrick MD Primary Care P rovider Encounter Details Date Type Department Care Team (Late st Contact Info) Description 06/13/2018 Historical Conversion [facility] Family Medicine [address] [place] [address] Social History Tobacco Use Types Packs/Day Years [...] Progress Notes * [facility], [facility] - 11/02/2018 12:00 AM CDT [...] week. Joan Everett PTA/Kassy Barone PT, [place] #[id number] Electronically signed by:Joan Everett PTA Nov 02 2018 2:00PM DIRECTOR OF NUCLEAR MEDICINE Cad Programmer/Recorder Electronically signed by:Trish Barone PT Nov 07 2018 4:43PM DIRECTOR OF NUCLEAR MEDICINE * [facility] - 10/26/2018 12:00 AM [...] by:Joan Everett PTA Oct 28 2018 7:51AM DIRECTOR OF NUCLEAR MEDICINE Cad Programmer/Recorder Electronically signed by:Trish Barone PT Oct 31 2018 7:01PM DIRECTOR OF NUCLEAR MEDICINE * [facility] - 09/19/2018 12:00 AM CDT PHYSICAL THERAPY STUDENT NOTE BALANCE EVALUATION CRISTIAN BLEDSOE : 1945 HX: [id number] DOS: 09/19/2018 REFERRING PROVIDER: Casey Berry D.O. 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 He is currently [...] PATIENT RECEIVED: Patient received 30 minutes of migm-no-qwpt evaluation with three or more comorbidities and three or more elements addressed. Clinical presentation is evolving and clinical complexity is moderate. Patient also received canalith repositioning maneuvers on this date. Lennox LEAHY/Trish Barone, PT #[id number] / lb-12 cc: Casey Berry D.O., [facility] Electronically signed by:Lennox Malagon Sep 20 2018 7:56PM DIRECTOR OF NUCLEAR MEDICINE Co-author Electronically signed by:Lennox Malagon Sep 27 2018 8:39AM DIRECTOR OF NUCLEAR MEDICINE Co-author Electronically signed by:Trish Barone PT Oct 02 2018 5:18PM DIRECTOR OF NUCLEAR MEDICINE documented in this encounter Procedure Notes * [facility] - 10/26/2018 12:00 AM CDTAssociated Order(s): ANTICOAGULATION [...] by:Tiffani Carrero RN Oct 26 2018 4:16PM DIRECTOR OF NUCLEAR MEDICINE * [facility] - 10/11/2018 12:00 AM CDTAssociated Order(s): ANTICOAGULATION [...] by:Tiffani Carrero RN Oct 11 2018 3:39PM DIRECTOR OF NUCLEAR MEDICINE * [facility] - 09/07/2018 12:00 AM CSTAssociated Order(s): ANTICOAGULATION [...] by:Tiffani Carrero RN Sep 07 2018 3:31PM DIRECTOR OF NUCLEAR MEDICINE * [facility] - 08/22/2018 12:00 AM CSTAssociated Order(s): [...] by:Tiffani Carrero RN Aug 22 2018 2:48PM DIRECTOR OF NUCLEAR MEDICINE * [facility], [facility] - 07/13/2018 12:00 AM CSTAssociated [...] by:Tiffani Carrero RN Jul 13 2018 2:41PM DIRECTOR OF NUCLEAR MEDICINE * [facility] - 06/13/2018 12:00 AM CSTAssociated Order(s): [...] Deborah Mandel RN; Jun 13 2018 12:37PM DIRECTOR OF NUCLEAR MEDICINE documented in this encounter Plan of Treatment Not on file documented as of this encounter Procedures Procedure Name Priority Date/Time Associated Diagnosis Comments ANTICOAGULATION 10/26/2018 ANTICOAGULATION 10/11/2018 ANTICOAGULATION 09/07/2018 ANTICOAGULATION 08/22/2018 ANTICOAGULATION 07/13/2018 ANTICOAGULATION 06/13/2018 documented in this encounter Results * ANTICOAGULATION (10/26/2018) Narrative Procedure Note [facility] - 10/26/2018 12:00 AM CDT [...] by:Tiffani Carrero RN Oct 26 2018 4:16PM DIRECTOR [facility] NUCLEAR MEDICINE [facility] OTHER * ANTICOAGULATION (10/11/2018) Narrative Procedure Note [facility] - 10/11/2018 12:00 AM CDT [facility] [...] by:Tiffani Carrero RN Oct 11 2018 3:39PM DIRECTOR OF NUCLEAR MEDICINE [facility] OTHER * ANTICOAGULATION (09/07/2018) Narrative Procedure Note [facility], [facility] - 09/07/2018 12:00 AM CST Anticoagulation [place] [...] by:Tiffani Carrero RN Sep 07 2018 3:31PM DIRECTOR OF NUCLEAR MEDICINE [facility] OTHER * ANTICOAGULATION (08/22/2018) Narrative Procedure Note [facility], [facility] - 08/22/2018 12:00 AM CST Anticoagulation [place] [...] by:Tiffani Carrero RN Aug 22 2018 2:48PM DIRECTOR OF NUCLEAR MEDICINE [facility] OTHER * ANTICOAGULATION (07/13/2018) Narrative Procedure Note [facility] - 07/13/2018 12:00 AM CST [facility] [...] by:Tiffani Carrero RN Jul 13 2018 2:41PM DIRECTOR OF NUCLEAR MEDICINE [facility] OTHER * ANTICOAGULATION (06/13/2018) Narrative Procedure Note [facility] - 06/13/2018 12:00 AM CST ACC [...] Deborah Mandel RN; Jun 13 2018 12:37PM DIRECTOR OF NUCLEAR MEDICINE Genericprovider [facility] OTHER documented in this encounter Visit Diagnoses Not on filedocumented in this encounter Care Teams Bench Carpenter Relationship Specialty Start Date End Date Casey Berry II, DO PCP - General 11/22/06 08/17/19 Stephani Aleman MD PCP - General Family Medicine 08/18/19 09/16/20 Bianka Loera CNP [address] [place] [phone] PCP - General Nurse Practitioner Family 09/17/2001/10 Desiree Patrick MD [address] [place] [address] PCP - General Electrophysiology 02/23/22 03/09/22 Desiree Patrick MD [address] [place] [address] 08/09/17 Farrah Nicole APRN,DOCTOR OF NURSE ANESTHESIA PRACTICE [address] [place] [address] 08/09/17 Bry Echevarria MD [facility] [address] [place] [address] 08/09/17 Casey Berry II DO 08/09/17 Shruti Vergara, RN RN Registered Nurse 08/27/20 documented as of this encounter Additional Source Comments PLEASE NOTE: Replies to this message will not be received.[facility] and [facility]
--- OUTSIDE RECORDS SUMMARY | 2024-06-16 11:32 | XMS_ITS | Encounter Summary ---
Author Organization [employer] Address [address] [place] [address] Care Team Providers Care Friction Welding Machine Operator Name Role Phone Jamal CARLISLE DO, Robert William Primary Care Provide r Unavailable Desiree Patrick MD Unavailable Farrah Nicole APRN,SPORTS BROADCASTING INTERNSHIP Unavailable Bry Echevarria MD Unavailable Jamal CARLISLE DO, Robert William Unavailable Unav Stephani Diaz MD Primary Care Provider Shruti Vergara RN Unavailable Unavailable Bianka Loera CNP Primary Care Provider [phone] Desiree Patrick MD Primary Care P rovider Encounter Details Date Type Department Care Team (Late st Contact Info) Description 03/30/2017 Historical Conversion [facility] Family Medicine [address] [facility] [place] [address] Desiree Rubi PAC [address] [place] [address] Social History Tobacco Use Types [...] on filedocumented in this encounter Care Teams Friction Welding Machine Operator Relationship Specialty Start Date End Date Casey Berry II, DO PCP - General 11/22/06 08/17/19 Stephani Aleman MD PCP - General Family Medicine 08/18/19 09/16/20 Bianka Loera CNP [address] [place] [address] 2 [place] [address] PCP - General Nurse Practitioner Family 09/17/20 712/31 Desiree Patrick MD [address] [place] [address] PCP - General Electrophysiology 02/23/22 03/09/22 Desiree Patrick MD [address] [place] [address] 08/09/17 Farrah Nicole APRN,SPORTS BROADCASTING INTERNSHIP [address] [place] [address] 08/09/17 Bry Echevarria MD [address] [place] [address] 08/09/17 Csaey Berry II, DO 08/09/17 Shruti Vergara RN RN Registered Nurse 08/27/20 documented as of this encounter Additional Source Comments PLEASE NOTE: Replies to this message will not be received.[facility] and [facility]
--- OUTSIDE RECORDS SUMMARY | 2024-06-16 11:32 | XMS_ITS | Encounter Summary ---
Author Organization [employer] Address [address] [place] [address] Care Team Providers Care Box Stacker Name Role Phone Jamal CARLISLE DO, Robert William Primary Care Provide r Unavailable Desiere Patrick MD Unavailable Farrah Nicole APRN,UNDERWRITING SERVICE REPRESENTATIVE Unavailable Bry Echevarria MD Unavailable [phone] Jamal CARLISLE DO, Robert William Unavailable Unav Stephani Diaz MD Primary Care Provider Shruti Vergara RN Unavailable Unavailable Bianka Loera CNP Primary Care Provider Desiree Patrick MD Primary Care P rovider Encounter Details Date Type Department Care Team (Late st Contact Info) Description 12/01/2016 Historical Conversion [facility] Family Medicine [address] [place] [address] Moon Maloney MD Social History Tobacco Use [...] filedocumented in this encounter Care Teams Box Stacker Relationship Specialty Start Date End Date Casey Berry II, DO PCP - General 11/22/06 08/17/19 Stephani Aleman MD PCP - General Family Medicine 08/18/19 09/16/20 Bianka Loera CNP [address] [place] [address] 2 [place] [phone] PCP - General Nurse Practitioner Family 09/17/2001/10 [place] [address] [place] [phone] PCP - General Electrophysiology 02/23/22 03/09/22 Desiree Patrick MD [address] [place] [address] 08/09/17 Farrah Nicole APRN,UNDERWRITING SERVICE REPRESENTATIVE [address] [place] [address] 08/09/17 Bry Echevarria MD [address] [place] [address] 08/09/17 Casey Berry II, DO 08/09/17 Shruti Vergara RN RN Registered Nurse 08/27/20 documented as of this encounter Additional Source Comments PLEASE NOTE: Replies to this message will not be received.[facility] and [facility]
--- OUTSIDE RECORDS SUMMARY | 2024-06-16 11:32 | XMS_ITS | Encounter Summary ---
Author Organization [employer] Address [address] [place] [address] Care Team Providers Care Operational Assistant Name Role Phone Jamal ACRLISLE DO, Robert William Primary Care Provide r Unavailable Desiree Patrick MD Unavailable Farrah Nicole APRN,CATARACT LENS GENERATOR Unavailable Bry Echevarria MD Unavailable Jamal CARLISLE DO, Robert William Unavailable Unav Stephani Diaz MD Primary Care Provider [phone] Shruti Vergara RN Unavailable Unavailable Binaka Loera CNP Primary Care Provider [phone] Desiree Patrick MD Primary Care P rovider Encounter Details Date Type Department Care Team (Late st Contact Info) Description 12/31/2016 Historical Conversion [facility] Family Medicine [address] [place] [address] Desiree Rubi PAC [address] [place] [address] Social History Tobacco Use Types [...] CST UROLOGY CRISTIAN LADI : 1945 HX: [id number] DOS: 08/31/2017 HISTORY OF PRESENT ILLNESS: Anurag [...] 2% of the specimen. 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 Also at the right apex he had Coburn 7 cancer involving 5%. He was treated [...] by:Desiree Rubi PA-C Sep 02 2017 5:01PM SOLE INKER * Desiree Rubi - 03/30/2017 12:00 AM CDT UROLOGY CRISTIAN BLEDSOE : 1945 HX: [id number] DOS: 03/30/2017 HISTORY OF PRESENT ILLNESS: 71-year-old male who presents to the Urology clinic today. The patient was previously noted to have a rubbery nodularity on both sides of the prostate. He had PSA velocity change. In August he had a PCA3 test that came back positive. He had a biopsy October 2016. 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 He had a Curt 7 cancer at the left mid prostate involving less than 5% of the tissue. The right mid prostate he had Coburn 7 cancer involving 20% of the tissue [...] treatment. 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 He had beenon Lupron for [...] Mare Rubi P.A.-C./ cc: Dr. Moon Maloney [facility] Radha Winslow [facility] Radiation Therapy Dept Dr. Casey Berry [facility] Radha Electronically signed by:Desiree Rubi PA-C Apr 02 2017 1:20PM SOLE INKER * Desiree Rubi - 12/31/2016 12:00 AM CDT UROLOGY CRISTIAN BLEDSOE : 1945 HX: [id number] DOS: 12/31/2016 HISTORY OF PRESENT ILLNESS: 71-year-old male who presents to the Urology clinic today. Hehad a velocity change with his PSA. On his prostate exam he had a rubbery nodularity on both sides.It was a symmetrical prostate. His PSA was monitored for a little while. In August he had a PATIENT NAVIGATOR 3test and that came back positive. He was brought back for a prostate biopsy October 23, 2016. His pathology showed Curt 6 cancer at the left base of the prostate involving 2% of the specimen. He hadGleason 7 cancer at the left mid prostate involving less than 5% of the tissue. The right mid prostate he had a Coburn 7 cancer involving 20% of the specimen [...] Lupron. UA today is normal. ASSESSMENT: 1. Coburn 7 adenocarcinoma of the prostate. He will [...] Rubi P.A.-C./anna 28 cc: Dr. Moon Maloney [facility] Radha [facility]low [facility] Dr. Casey Berry [facility] Radha Electronically signed by:Desiree Rubi PA-C Jan 06 2017 4:31PM SOLE INKER Author documented in this encounter Plan of Treatment Not on file documented as of this encounter Visit Diagnoses Not on filedocumented in this encounter Care Teams Operational Assistant Relationship Specialty Start Date End Date Casey Berry II, DO PCP - General 11/22/06 08/17/19 Stephani Aleman MD PCP - General Family Medicine 08/18/19 09/16/20 Bianka Loera CNP [address] [place] [id number] PCP - General Nurse Practitioner Family 09/17/20 712/31 Desiree Patrick MD [address] [place] [address] PCP - General Electrophysiology 02/23/22 03/09/22 Desiree Patrick MD [address] [place] [address] 08/09/17 Farrah Nicole APRN,CATARACT LENS GENERATOR [address] [place] [address] 08/09/17 Bry Echevarria MD [address] [place] [id number] 08/09/17 Casey Berry II, DO 08/09/17 Shruti Vergara, RN RN Registered Nurse 08/27/20 documented as of this encounter Additional Source Comments PLEASE NOTE: Replies to this message will not be received.[facility]
--- OUTSIDE RECORDS SUMMARY | 2024-06-16 11:32 | XMS_ITS | Encounter Summary ---
Author Organization [employer] Address [address] [place] [address] Care Team Providers Care Electoral Officer Name Role Phone Jamal CARLISLE DO, Robert William Primary Care Provide r Unavailable Desiree Patrick MD Unavailable Farrah Nicole APRN,SPIRAL SPRING WINDER Unavailable Bry Echevarria MD Unavailable Jamal CARLISLE DO, Robert William Unavailable Unav Stephani Diaz MD Primary Care Provider Shruti Vergara RN Unavailable Unavailable Bianka Loera CNP Primary Care Provider [phone] Desiree Patrick MD Primary Care P rovider Encounter Details Date Type Department Care Team (Late st Contact Info) Description 02/03/2017 Historical Conversion [facility] Family Medicine [address] [place] [id number] Social History Tobacco Use Types Packs/Day Years [...] as of this encounter Procedure Notes * [facility] 01[facility]05[facility]2018 12:00 AM CDTAssociated Order(s): [...] by:Tiffani Carrero RN Jan 05 2018 12:21PM PHYSICIST ASTROPHYSICS * [facility] 12/21/2017 12:00 AM CDTAssociated Order(s): ANTICOAGULATION [...] by:Tiffani Carrero RN Dec 21 2017 8:31AM PHYSICIST ASTROPHYSICS * [facility] - 11/24/2017 12:00 AM CDTAssociated Order(s): ANTICOAGULATION Anticoagulation [facility] Name: CRISTIAN BLEDSOE : 1945 DOS: [...] by:Tiffani Carrero RN Nov 24 2017 2:41PM PHYSICIST ASTROPHYSICS * [facility] - 10/27/2017 12:00 AM CDTAssociated Order(s): ANTICOAGULATION Anticoagulation [facility] Name: CRISTIAN BLEDSOE : 1945 DOS: 10/27/2017 Cristian is a patient of Dr. Berry. He is here today for anticoagulation assessment and INR check for adiagnosis of atrial fibrillation. Patient states that he has not been feeling well and has been suffering with spinal stenosis. He reports that he has been taking soma for a muscle relaxer. He also reports that his well treatment offsider has changed his medications. Patient stales that he is no longer takingany rate control medications. INR tested today is therapeutic at 2.0 with the recommended range of 2.0 to 3.0. He will continue Coumadin at 5 mg daily with an INR recheck in one month, sooner for anychanges. Patient verbalizes understanding. Electronically signed by:Tiffani Carrero RN Oct 28 2017 7:02AM PHYSICIST ASTROPHYSICS * [facility] - 09/29/2017 12:00 AM CDTAssociated [...] experience bradycardia and is working with his well treatment offsider to manage his beta blockers slowly. INR tested today is therapeutic at 2.1 with the recommended range of 2.0 to 3.0. He will continue Coumadin at 5 mg daily with an INR recheck in one month, sooner for any changes. Patient verbalizes understanding. Electronically signed by:Tiffani Carrero RN Sep 29 2017 2:09PM PHYSICIST ASTROPHYSICS * [facility], [facility] - 09/15/2017 12:00 AM [...] that Dr. Berry will converse with his well treatment offsider to see if they should change some of his heart medications. Patient will call [facility] nurse with any updates. INR tested today is 1.9 with the recommended range of 2.0 to 3.0. He will adjust Coumadin to 5 mg daily with an INR recheck in two weeks. Patient verbalizes understanding. Electronically signed by:Tiffani Carrero RN Sep 15 2017 11:42AM PHYSICIST ASTROPHYSICS * [facility] 08/18/2017 12:00 AM CSTAssociated Order(s): ANTICOAGULATION [...] by:Tiffani Carrero RN Aug 18 2017 6:00PM PHYSICIST ASTROPHYSICS * [facility] - 07/09/2017 12:00 AM CSTAssociated Order(s): ANTICOAGULATION [...] by:Tiffani Carrero RN Jul 09 2017 11:28AM PHYSICIST ASTROPHYSICS * [facility] - 06/16/2017 12:00 AM [...] [facility] at [facility] in preparation for taking dofetilide and [...] by:Tiffani Carrero RN Jun 16 2017 4:18PM PHYSICIST ASTROPHYSICS * [facility] - 06/09/2017 12:00 AM CSTAssociated Order(s): ANTICOAGULATION Anticoagulation Clinic [facility] Name: CRISTIAN BLEDSOE : 1945 DOS: 06/09/2017 This is a patient of Dr. eBrry. He is here today for an anticoagulation assessment and INR check fora diagnosis of atrial fibrillation. He states that he has been feeling well. Patient denies any recent medication changes. He reports that he needs weekly INR checks per Dr. Patrick at [facility] in preparation for taking dofetilide and [...] by:Tiffani Carrero RN Jun 09 2017 3:40PM PHYSICIST ASTROPHYSICS * [facility]PR[facility] - 06/02/2017 [...] weekly INR checks per Dr. Patrick at [facility] in preparation for taking dofetilide and [...] by:Tiffani Carrero RN Jun 02 2017 9:39AM PHYSICIST ASTROPHYSICS AMENDMENTS: 1. current INR and Coumadin dosing. Electronically signed by:Tiffani Carrero RN Jun 09 2017 3:41PM PHYSICIST ASTROPHYSICS * [facility] - 05/26/2017 12:00 AM [...] [facility] at [facility] in preparation for taking dofetilide and [...] by:Tiffani Carrero RN May 26 2017 9:42AM PHYSICIST ASTROPHYSICS * [facility] - 05/19/2017 12:00 AM [...] [facility] at [facility] in preparation for taking dofetilide and [...] by:Tiffani Carrero RN May 19 2017 3:13PM PHYSICIST ASTROPHYSICS * [facility] - 05/14/2017 12:00 AM CDTAssociated Order(s): ANTICOAGULATION Email communication received from patient today: ALLAN Vera, RN [facility] (direct phone) [phone] Per our phone conversation of yesterday afternoon, I will be having an initiation of Tikosyn (Dofetilide) at [facility] beginning on June 21. To prepare for this, my well treatment offsider,Dr. Desiree Patrick, has requested INR lab reports demonstrating 4 to 5 weeks of INR levels between 2.5 and 3 prior to the initiation of Tikosyn. Would you please fax my INR lab reports for the month of May to Tamika, Dr. Patrick???s nurse, at (fax) [phone]? The phone number for Dr. Patrick is [phone]. As we discussed, I will come in for INR testing each Wednesday morning at 9:30 AM to meet this requirement. Thank you, Anurag Bledsoe Electronically signed by:Tiffani Carrero RN May 14 2017 9:46AM PHYSICIST ASTROPHYSICS * [facility] - 05/10/2017 12:00 AM CDTAssociated Order(s): ANTICOAGULATION [...] [facility] at [facility] in preparation for taking dofetilide and [...] by:Tiffani Carrero RN May 10 2017 3:11PM PHYSICIST ASTROPHYSICS * [facility] - 04/06/2017 12:00 AM [...] by:Tiffani Carrero RN Apr 06 2017 12:37PM PHYSICIST ASTROPHYSICS * [facility] - 03/03/2017 12:00 AM [...] He will have INR checked in the [place] lab prior to his appointment with Dr. Maloney. Patient verbalized understanding. Electronically signed by:Tiffani Carrero RN Mar 03 2017 12:02PM PHYSICIST ASTROPHYSICS * [facility] - 02/03/2017 12:00 AM [...] by:Tiffani Carrero RN Feb 03 2017 10:11AM PHYSICIST ASTROPHYSICS documented in this encounter Plan of Treatment [...] GENERICPROVIDER - 01/05/2018 12:00 AM CDT Anticoagulation [facility] Name: CRISTIAN BLEDSOE : 1945 DOS: [...] by:Tiffani Carrero RN Jan 05 2018 12:21PM PHYSICIST ASTROPHYSICS [facility] OTHER * ANTICOAGULATION (12/21/2017) Narrative Procedure Note [facility] - 12/21/2017 12:00 AM CDT Anticoagulation [facility] Name: CRISTIAN BLEDSOE : 1945 DOS: [...] by:Tiffani Carrero RN Dec 21 2017 8:31AM PHYSICIST ASTROPHYSICS [facility] OTHER * ANTICOAGULATION (11/24/2017) Narrative Procedure Note [facility] - 11/24/2017 12:00 AM CDT Anticoagulation [facility] Name: CRISTIAN BLEDSOE : 1945 DOS: [...] by:Tiffani Carrero RN Nov 24 2017 2:41PM PHYSICIST ASTROPHYSICS [facility] OTHER * ANTICOAGULATION (10/27/2017) Narrative Procedure Note [facility] - 10/27/2017 12:00 AM CDT Anticoagulation [facility] Name: CRISTIAN BLEDSOE : 1945 DOS: 10/27/2017 Cristian is a patient of Dr. Berry. He is here today for anticoagulationassessment and INR check for a diagnosis of atrial fibrillation. Patientstates that he has not been feeling well and has been suffering withspinal stenosis. He reports that he has been taking soma for a musclerelaxer. He also reports that his well treatment offsider has changed hismedications. Patient stales that he is no longer taking any rate controlmedications. INR tested today is therapeutic at 2.0 with the recommendedrange of 2.0 to 3.0. He will continue Coumadin at 5 mg daily with an INRrecheck in one month, sooner for any changes. Patient verbalizesunderstanding. Electronically signed by:Tiffani Carrero RN Oct 28 2017 7:02AM PHYSICIST ASTROPHYSICS [facility] OTHER * ANTICOAGULATION (09/29/2017) Narrative Procedure Note [facility] - 09/29/2017 12:00 AM CDT Anticoagulation [facility] Name: CRISTIAN BLEDSOE : 1945 DOS: 09/29/2017 Cristian is a patient of Dr. Berry. He is here today for anticoagulationassessment and INR check for a diagnosis of atrial fibrillation. Patientstates that he is feeling well. He denies any changes in medication.Patient reports that he continues to experience bradycardia and is workingwith his well treatment offsider to manage his beta blockers slowly. INR testedtoday is therapeutic at 2.1 with the recommended range of 2.0 to 3.0. Hewill continue Coumadin at 5 mg daily with an INR recheck in one month,sooner for any changes. Patient verbalizes understanding. Electronically signed by:Tiffani Carrero RN Sep 29 2017 2:09PM PHYSICIST ASTROPHYSICS [facility] OTHER * ANTICOAGULATION (09/15/2017) Narrative Procedure Note [facility] - 09/15/2017 12:00 AM CST Anticoagulation [...] statesthat Dr. Berry will converse with his well treatment offsider to see if they shouldchange some of his heart medications. Patient will call [facility] nurse with anyupdates. INR tested today is 1.9 with the recommended range of 2.0 to 3.0.He will adjust Coumadin to 5 mg daily with an INR recheck in two weeks.Patient verbalizes understanding. Electronically signed by:Tiffani Carrero RN Sep 15 2017 11:42AM PHYSICIST ASTROPHYSICS [facility] OTHER * ANTICOAGULATION (08/18/2017) Narrative Procedure Note [facility] - 08/18/2017 12:00 AM CST Anticoagulation [facility] Name: CRISTIAN BLEDSOE : 1945 DOS: [...] by:Tiffani Carrero RN Aug 18 2017 6:00PM PHYSICIST ASTROPHYSICS [facility] OTHER * ANTICOAGULATION (07/09/2017) Narrative Procedure Note [facility] - 07/09/2017 12:00 AM CST Anticoagulation [facility] Name: CRISTIAN BLEDSOE : 1945 DOS: [...] by:Tiffani Carrero RN Jul 09 2017 11:28AM PHYSICIST ASTROPHYSICS [facility] OTHER * ANTICOAGULATION (06/16/2017) Narrative Procedure Note [facility] - 06/16/2017 12:00 AM CST Anticoagulation Clinic [facility] Name: CRISTIAN BLEDSOE : 1945 DOS: 06/16/2017 This is a patient of Dr. Berry. He is here today for an anticoagulationassessment and INR check for a diagnosis of atrial fibrillation. He statesthat he has been feeling well. Patient denies any recent medicationchanges. He reports that he needs weekly INR checks per Dr. Patrick [facility] Cardiology in preparation for [...] by:Tiffani Carrero RN Jun 16 2017 4:18PM PHYSICIST ASTROPHYSICS [facility] OTHER * ANTICOAGULATION (06/09/2017) Narrative Procedure Note [facility] - 06/09/2017 12:00 AM CST Anticoagulation Clinic [facility] Name: CRISTIAN BLEDSOE : 1945 DOS: 06/09/2017 This is a patient of Dr. Berry. He is here today for an anticoagulationassessment and INR check for a diagnosis of atrial fibrillation. He statesthat he has been feeling well. Patient denies any recent medicationchanges. He reports that he needs weekly INR checks per Dr. Patrick [facility] in preparation for [...] by:Tiffani Carrero RN Jun 09 2017 3:40PM PHYSICIST ASTROPHYSICS Genericprovider [facility] OTHER * ANTICOAGULATION (06/02/2017) Narrative Procedure Note [facility] - 06/02/2017 12:00 AM CST Anticoagulation [...] need weekly INR checks per Dr. Valencia [facility] in preparation for taking dofetilide and [...] by:Tiffani Carrero RN Jun 02 2017 9:39AM PHYSICIST ASTROPHYSICS AMENDMENTS: 1. current INR and Coumadin dosing. Electronically signed by:Tiffani Carrero RN Jun 09 2017 3:41PM PHYSICIST ASTROPHYSICS [facility] * ANTICOAGULATION (05/26/2017) Narrative Procedure Note [facility] - 05/26/2017 12:00 AM CST Anticoagulation [facility] Name: CRISTIAN BLEDSOE : 1945 DOS: 05/26/2017 This is a patient of Dr. Berry. He is here today for an anticoagulationassessment and INR check for a diagnosis of atrial fibrillation. He statesthat he has been feeling well. Patient denies any recent medicationchanges. He reports that he will need weekly INR checks per Dr. Valencia [facility] in preparation for taking dofetilide and [...] by:Tiffani Carrero RN May 26 2017 9:42AM PHYSICIST ASTROPHYSICS [facility] * [facility]ULATION (05/19/2017) Narrative [facility] 05/19/2017 12:00 AM CST Anticoagulation [facility] Name: CRISTIAN BLEDSOE : 1945 DOS: 05/19/2017 This is a patient of Dr. Berry. He is here today for an anticoagulationassessment and INR check for a diagnosis of atrial fibrillation. He statesthat he has been feeling well. Patient denies any recent medicationchanges. He reports that he will need weekly INR checks per Dr. Valencia [facility] in preparation for taking dofetilide and [...] by:Tiffani Carrero RN May 19 2017 3:13PM PHYSICIST ASTROPHYSICS Genericprovider [facility] OTHER * ANTICOAGULATION (05/14/2017) Narrative Procedure Note [facility] - 05/14/2017 12:00 AM CDT Email communication received from patient today: ALLAN Vera, RN [facility] (direct phone) [phone] Per our phone conversation of yesterday afternoon, I will be having aninitiation of Tikosyn (Dofetilide) at [facility] beginning June 21. To prepare for this, my well treatment offsider, Dr. Serra, has requested INR lab reports demonstrating 4 to 5 weeks ofINR levels between 2.5 and 3 prior to the initiation of Tikosyn. Would you please fax my INR lab reports for the month of May Oneil, Dr. Patrick s nurse, at (fax) [phone]? The phone numberfor Dr. Patrick is [phone]. As we discussed, I will come in for INR testing each Wednesday morning at9:30 AM to meet this requirement. Thank you, Anurag Bledsoe Electronically signed by:Tiffani Carrero RN May 14 2017 9:46AM PHYSICIST ASTROPHYSICS [facility] OTHER * ANTICOAGULATION (05/10/2017) Narrative Procedure Note [facility] - 05/10/2017 12:00 AM CDT Anticoagulation [facility] Name: CRISTIAN BLEDSOE : 1945 DOS: 05/10/2017 This is a patient of Dr. Berry. He is here today for an anticoagulationassessment and INR check for a diagnosis of atrial fibrillation. He statesthat he has been feeling well. Patient denies any recent medicationchanges. He reports that he will need weekly INR checks per Dr. Valencia [facility] in preparation for taking dofetilide and [...] by:Tiffani Carrero RN May 10 2017 3:11PM PHYSICIST ASTROPHYSICS [facility] OTHER * ANTICOAGULATION (04/06/2017) Narrative Procedure Note [facility] - 04/06/2017 12:00 AM CDT Anticoagulation [facility] Name: CRISTIAN BLEDSOE : 1945 DOS: [...] by:Tiffani Carrero RN Apr 06 2017 12:37PM PHYSICIST ASTROPHYSICS [facility] OTHER * ANTICOAGULATION (03/03/2017) Narrative Procedure Note [facility] - 03/03/2017 12:00 AM CDT Anticoagulation [facility] Name: CRISTIAN BLEDSOE : 1945 DOS: [...] changes. He willhave INR checked in the [place] lab prior to his appointment with . Patient verbalized understanding. Electronically signed by:Tiffani Carrero RN Mar 03 2017 12:02PM PHYSICIST ASTROPHYSICS [facility] OTHER * ANTICOAGULATION (02/03/2017) Narrative Procedure Note [facility] - 02/03/2017 12:00 AM CDT Anticoagulation [facility] Name: CRISTIAN BLEDSOE : 1945 DOS: [...] by:Tiffani Carrero RN Feb 03 2017 10:11AM PHYSICIST ASTROPHYSICS Genericprovider [facility] OTHER documented in this encounter Visit Diagnoses Not on filedocumented in this encounter Care Teams Electoral Officer Relationship Specialty Start Date End Date Casey Berry II, DO PCP - General 11/22/06 08/17/19 Stephani Aleman MD PCP - General Family Medicine 08/18/19 09/16/20 Bianka Loera SOFTWARE LICENSING EXECUTIVE [address] [place], [place] [address]E [address] [place] [address] PCP - General Nurse Practitioner Family 09/17/2001/10 Desiree Patrick MD [address] [place] [address] PCP - General Electrophysiology 02/23/22 03/09/22 Desiree Patrick MD [address] [place] [address] 08/09/17 Farrah Nicole APRN,SPIRAL SPRING WINDER [address] [id number] 08/09/17 Bry Echevarria MD [address] [place] [phone] 08/09/17 Casey Berry II, DO 08/09/17 Shruti Vergara RN RN Registered Nurse 08/27/20 documented as of this encounter Additional Source Comments PLEASE NOTE: Replies to this message will not be received.[facility]
--- OUTSIDE RECORDS SUMMARY | 2024-06-16 11:32 | XMS_ITS | Encounter Summary ---
Author Organization [employer] Address [address] [place] [address] Care Team Providers Care Fast Food Team Member Name Role Phone Jamal CARLISLE DO, Robert William Primary Care Provide r Unavailable Desiree Patrick MD Unavailable Farrah Nicole APRN,REVENUE MANAGER Unavailable Bry Echevarria MD Unavailable [phone] Jamal CARLISLE DO, Robert William Unavailable Unav Stephani Diaz MD Primary Care Provider Shruti Vergara RN Unavailable Unavailable Bianka Loera CNP Primary Care Provider Desiree Patrick MD Primary Care P rovider Encounter Details Date Type Department Care Team (Late st Contact Info) Description 06/23/2018 Historical Conversion [facility] Family Medicine [address] [place] [id number] Moon Maloney MD Social History Tobacco Use [...] Comments Blood Pressure 120/62 06/23/2018 12:00 AM TIRE SHOP MECHANIC Pulse - - Temperature - - Respiratory Rate - - Oxygen Saturation - - Inhaled Oxygen Concentration - - Weight 93.5 kg (206 lb 2.1 oz) 06/23/2018 12:00 AM TIRE SHOP MECHANIC Height - - Body Mass Index 27.2 06/20/2018 8:23 AM TIRE SHOP MECHANIC documented in this encounter Functional Status [...] on filedocumented in this encounter Care Teams Fast Food Team Member Relationship Specialty Start Date End Date Casey Berry II, DO PCP - General 11/22/06 08/17/19 Stephani Aleman MD PCP - General Family Medicine 08/18/19 09/16/20 Bianka Loera CNP [address] [facility] 2 [place] [phone] PCP - General Nurse Practitioner Family 09/17/2001/10 [place] [address] [place] [phone] PCP - General Electrophysiology 02/23/22 03/09/22 Desiree Patrick MD [address] [place] [address] 08/09/17 Farrah Nicole APRN,REVENUE MANAGER [address] [place] [address] 08/09/17 Bry Echevarria MD [address] [place] [address] 08/09/17 Casey Berry II, DO 08/09/17 Shruti Vergara RN RN Registered Nurse 08/27/20 documented as of this encounter Additional Source Comments PLEASE NOTE: Replies to this message will not be received.[facility] and [facility]
--- OUTSIDE RECORDS SUMMARY | 2024-06-16 11:32 | XMS_ITS | Encounter Summary ---
Author Organization [employer] Address [address] [place] [address] Care Team Providers Care Surgical Clinical Reviewer Name Role Phone Jamal CARLISLE DO, Robert William Primary Care Provide r Unavailable Desiree Patrick MD Unavailable Farrah Nicole APRN,CAMPAIGN DIRECTOR Unavailable Bry Echevarria MD Unavailable Jamal CARLISLE DO, Robert William Unavailable Unav Stephani Diaz MD Primary Care Provider Shruti Vergara RN Unavailable Unavailable Bianka Loera CNP Primary Care Provider Desiree Patrick MD Primary Care P rovider Encounter Details Date Type Department Care Team (Late st Contact Info) Description 06/13/2018 Historical Conversion [facility] Family [facility] [address] [facility] [place] [address] Bry Echevarria MD [address] [place] [address] Social History Tobacco Use Types [...] AM CST CRISTIAN BLEDSOE : 1945 HX: [id number] DOS: 06/13/2018 SUBJECTIVE: Patient is a 72-year-old [...] Jose Winslow in Radiation Oncology at the [facility]. He has not recently had cystoscopy. [...] Prostate cancer, status post treatment with radiation. [place] to be under good control at this [...] later. Bry Echevarria M.D./ekg-6 cc: Yury Berry DO/[facility] Radha cc: Elder Maloney MD/[facility] Radha cc: Mare Rubi PA-C/[facility] Radha cc: Jose Winslow MD/[facility] Electronically signed by:Bry Echevarria M.D. Jun 16 2018 2:16PM CLASS A TRUCK DRIVER documented in this encounter Plan of Treatment Not on file documented as of this encounter Visit Diagnoses Not on filedocumented in this encounter Care Teams Surgical Clinical Reviewer Relationship Specialty Start Date End Date Casey Berry II, DO PCP - General 11/22/06 08/17/19 Stephani Aleman MD PCP - General Family Medicine 08/18/19 09/16/20 Bianka Loera CROP AND SOIL SCIENTIST [address] [place] [phone] PCP - General Nurse Practitioner Family 09/17/2001/10 Desiree Patrick MD [address] [place] [address] PCP - General Electrophysiology 02/23/22 03/09/22 Desiree Patrick MD [address] [place] [address] 08/09/17 Farrah Nicole, FRUIT CUTTER,CAMPAIGN DIRECTOR [address] [place] [address] 08/09/17 Bry Echevarria MD [address] [place] [place] [address] 08/09/17 Casey Berry II, DO 08/09/17 Shruti Vergara RN RN Registered Nurse 08/27/20 documented as of this encounter Additional Source Comments PLEASE NOTE: Replies to this message will not be received.[facility] and [facility]
--- OUTSIDE RECORDS SUMMARY | 2024-06-16 11:32 | XMS_ITS | Encounter Summary ---
Author Organization [employer] Address [address] [place] [address] Care Team Providers Care Director Of Enrollment Name Role Phone Jamal CARLISLE DO, Robert William Primary Care Provide r Unavailable Desiree Patrick MD Unavailable Farrah Nicole APRN,GRANT WRITER Unavailable Bry Echevarria MD Unavailable Jamal CARLISLE DO, Robert William Unavailable Unav Stephani Diaz MD Primary Care Provider Shruti Vergara RN Unavailable Unavailable Bianka Loera CNP Primary Care Provider Desiree Patrick MD Primary Care P rovider Encounter Details Date Type Department Care Team (Late st Contact Info) Description 06/13/2018 Historical Conversion [facility] Family [facility] [address] [facility] [place] [address] Bry Echevarria MD [address] [place] [address] Social History Tobacco Use Types [...] Comments Blood Pressure 120/78 06/13/2018 12:00 AM HAND RIGGER Pulse - - Temperature - - Respiratory Rate - - Oxygen Saturation - - Inhaled Oxygen Concentration - - Weight 93.8 kg (206 lb 12.7 oz) 018 12:00 AM HAND RIGGER Height - - Body Mass Index 27.29 05/18/2018 8:54 AM HAND RIGGER documented in this encounter Functional Status Functional [...] in this encounter Care Teams Director Of Enrollment Relationship Specialty Start Date End Date Casey Berry II, DO PCP - General 11/22/06 08/17/19 Stephani Aleman MD PCP - General Family Medicine 08/18/19 09/16/20 Bianka Loera CNP [address] [place] [address] 2 [place] [address] PCP - General Nurse Practitioner Family 09/17/2001/10 Desiree Patrick MD [address] [place] [address] PCP - General Electrophysiology 02/23/22 03/09/22 Desiree Patrick MD [address] [place] [address] 08/09/17 Farrah Nicole APRN,GRANT WRITER [address] [place] [address] 08/09/17 Bry Echevarria MD [address] [place] [address] 08/09/17 Casey Berry II, DO 08/09/17 Shruti Vergara RN RN Registered Nurse 08/27/20 documented as of this encounter Additional Source Comments PLEASE NOTE: Replies to this message will not be received.[facility] and [facility]
--- OUTSIDE RECORDS SUMMARY | 2024-06-16 11:33 | XMS_ITS | Encounter Summary ---
Author Organization [employer] Address [address] [place] [address] Care Team Providers Care Crew Attendant Name Role Phone Jamal CARLISLE DO, Robert William Primary Care Provide r Unavailable Desiree Patrick MD Unavailable Farrah Nicole APRN,BALLROOM DANCER Unavailable [phone] Bry Echevarria MD Unavailable [phone] Jamal CARLISLE DO, Robert William Unavailable Unav Stephani Diaz MD Primary Care Provider Shruti Vergara RN Unavailable Unavailable Bianka Loera CNP Primary Care Provider [phone] Desiree Patrick MD Primary Care P rovider Encounter Details Date Type Department Care Team (Late st Contact Info) Description 10/08/2016 Historical Conversion [facility] Family Medicine [address] [place] [address] Social History Tobacco Use Types Packs/Day Years [...] as of this encounter Nursing Notes * [facility], GENERICPROVIDER - 10/08/2016 12:00 AM CDT [...] chest pain or confusion. Patient instructed by card writer hand to go to the Emergency Room at [facility] to be evaluated. Patient verbalized understanding of instructions. STACY MCCAULEY Electronically signed by:Tammy Coronado RN Oct 08 2016 8:22AM ANIMAL PHYSIOLOGIST documented in this encounter Plan of Treatment Not on file documented as of this encounter Visit Diagnoses Not on filedocumented in this encounter Care Teams Crew Attendant Relationship Specialty Start Date End Date Casey Berry II, DO PCP - General 11/22/06 08/17/19 Stephani Aleman MD PCP - General Family Medicine 08/18/19 09/16/20 Bianka Loera CNP [address] [facility] 2 [place] [address] PCP - General Nurse Practitioner Family 09/17/2001/10 Desiree Patrick MD [address] [place] [address] PCP - General Electrophysiology 02/23/22 03/09/22 Desiree Patrick MD [address] [place] [address] 08/09/17 Farrah Nicole, WEB PAGE DEVELOPER,BALLROOM DANCER [address] [place] [address] 08/09/17 Bry Echevarria MD [address] [place] [place] [address] 08/09/17 Casey Berry II, DO 08/09/17 Shruti Vergara RN RN Registered Nurse 08/27/20 documented as of this encounter Additional Source Comments PLEASE NOTE: Replies to this message will not be received.[facility] and [facility]
--- OUTSIDE RECORDS SUMMARY | 2024-06-16 11:33 | XMS_ITS | Encounter Summary ---
Author Organization [employer] Address [address] [place] [address] Care Team Providers Care Chief Port Director Name Role Phone Jamal CARLISLE DO, Robert William Primary Care Provide r Unavailable Desiree Patrick MD Unavailable Farrah Nicole APRN,NEPHROLOGY NURSE Unavailable Bry Echevarria MD Unavailable [phone] Jamal CARLISLE DO, Robert William Unavailable Unav xiable Stephani Aleman MD Primary Care Provider [phone] Shruti Vergara RN Unavailable Unavailable Bianka Loera CNP Primary Care Provider Desiree Patrick MD Primary Care P rovider Encounter Details Date Type Department Care Team (Late st Contact Info) Description 10/09/2016 Historical Conversion [facility] Family Medicine [address] [facility] [place] [address] Jana Aleman APRN,FIELD HUMAN RESOURCES MANAGER [address] [place] [address] Social History Tobacco Use Types [...] this encounter Progress Notes * Jana Aleman, OPENING MACHINE CLEANER,FIELD HUMAN RESOURCES MANAGER - 10/09/2016 12:00 AM CDT Assessment [...] the first available appointment with either [facility] and or [facility]. He is instructed to return should his [...] Thao Phone Number to Contact Patient: : [phone] to Provider, Practice or Agency: : Either [facility] or [facility] Reason For Visit Patient in for [...] 1 TABLET BY MOUTH ONCE DAILY; Therapy: 68Vkz0594 to (Evaluate:13Dag7327) Requested for: 13Jul2016; Last Rx:13Jul2016 Ordered 3. Metoclopramide HCl - 5 MG Oral Tablet; TAKE 1 TABLET as needed; Therapy: 10Sep2014 to Requested for: 02Yip2935 Recorded 4. Metoprolol Tartrate 25 MG Oral Tablet; 1 prn a fib; Therapy: (Recorded:05Sgp1636) to Requested for: 95Tbe4367 Recorded 5. Tylenol Extra Strength 500 MG Oral Tablet; Therapy: (Recorded:45Tln4267) to Recorded 6. Warfarin Sodium 5 MG Oral Tablet; Take as directed by ACC; Therapy: 44Nnm5915 to (Evaluate:06Cyw4573) Requested for: 14Jul2016 Recorded Allergies 1. Penicillins [...] RN CNP RN,NIKKI; Oct 18 2016 1:54PM METAL CNC OPERATOR Electronically signed by : Casey Berry DO; Oct 22 2016 1:20PM METAL CNC OPERATOR documented in this encounter Plan of Treatment Not on file documented as of this encounter Visit Diagnoses Not on filedocumented in this encounter Care Teams Chief Port Director Relationship Specialty Start Date End Date Casey Berry II, DO PCP - General 11/22/06 08/17/19 Stephani Aleman MD PCP - General Family Medicine 08/18/19 09/16/20 Bianka Loera CNP [address] [facility] 2 [place] [phone] PCP - General Nurse Practitioner Family 09/17/2001/10 [place] [address] [place] [address] [place] [phone] PCP - General Electrophysiology 02/23/22 03/09/22 Desiree Patrick MD [address] [place] [address] 08/09/17 Farrah Nicole APRN,NEPHROLOGY NURSE [address] [place] [place] [address] 08/09/17 Bry Echevarria MD [address] [place] [address] 08/09/17 Casey Berry II, DO 08/09/17 Shruti Vergara RN RN Registered Nurse 08/27/20 documented as of this encounter Additional Source Comments PLEASE NOTE: Replies to this message will not be received.[facility] and [facility]
--- OUTSIDE RECORDS SUMMARY | 2024-06-16 11:33 | XMS_ITS | Encounter Summary ---
Author Organization [employer] Address [address] [place] [address] Care Team Providers Care Oracle Security Consultant Name Role Phone Jamal CARLISLE DO, Robert William Primary Care Provide r Unavailable Desiree Patrick MD Unavailable Farrah Nicole APRN,TREASURY MANAGEMENT SALES CONSULTANT Unavailable Bry Echevarria MD Unavailable [phone] Jamal CARLISLE DO, Robert William Unavailable Unav Stephani Diaz MD Primary Care Provider Shruti Vergara RN Unavailable Unavailable Bianka Loera CNP Primary Care Provider Desiree Patrick MD Primary Care P rovider Encounter Details Date Type Department Care Team (Late st Contact Info) Description 08/28/2015 Historical Conversion [facility] Family Medicine [address] [place] [address] Casey Berry II, DO Social History Tobacco Use Types Packs/Day Years Used Date Smoking Tobacco: Never Assessed Sex and Gender Information Value Date Recorded Sex Assigned at Not on file Gender Identity Not on file Sexual Orientation Not on file documented as of this encounter Last Filed Vital Signs Vital Sign Reading Time Taken Comments Blood Pressure 134/90 08/28/2015 12:00 AM PAINT LINE OPERATOR Pulse - - Temperature - - Respiratory Rate - - Oxygen Saturation - - Inhaled Oxygen Concentration - - Weight 90.2 kg (198 lb 13.7 oz) 016 12:00 AM PAINT LINE OPERATOR Height 186 cm (6' 1.23) 08/28/2015 12: 00 AM PAINT LINE OPERATOR Body Mass Index 26.07 08/28/2015 12:00 AM PAINT LINE OPERATOR documented in this encounter Progress Notes [...] healthy by no longer smoking.; Status:Complete; Done: 89Jpj2207 Reason For Visit Go over CT results. [...] 1 TABLET BY MOUTH ONCE DAILY; Therapy: 50Ncb5018 to (Evaluate:07Bts4118) Requested for: 27Zae9894; Last Rx:17Qwx6080 Ordered 2. Metoclopramide HCl - 5 MG Oral Tablet; TAKE 1 TABLET BY MOUTH THREE TIMES DAILY WITH MEALS; Therapy: 10Sep2014 to (Evaluate:86Rya9098) Requested for: 64Glx2903; Last Rx:41Nma1125 Ordered 3. Metoprolol Tartrate 25 MG Oral Tablet; 1/2 to 1 prn a fib Requested for: 50Czd5412; Last Rx:86Ttw5986 Ordered 4. Tylenol Extra Strength 500 MG Oral Tablet; Therapy: (Recorded:05Isv2800) to Recorded 5. Warfarin Sodium 5 MG Oral Tablet; Take as directed by ACC; Therapy: 27Ogn4893 to (Evaluate:15May2017) Requested for: 20May2016 Recorded Allergies 1. Penicillins 2. Sulfa Drugs Vitals Recorded: 71Ukr2348 10:00AM Systolic 115, RUE, Sitting Diastolic 76, RUE, Sitting Heart Rate 65 Respiration 16 Temperature 97.6 F, Forehead Weight 91.5 kg BMI Calculated 26.45 BSA Calculated 2.16 2+ Falls or 1 Fall with injury in last year? No O2 Saturation 96 Signatures Casey Berry II, D.OWilliam/pj-29 Electronically signed by : Casey Berry DO; Jul 09 2016 1:56PM PAINT LINE OPERATOR * Casey Berry II, DO - 03/10/2016 [...] use sparingly qid; Therapy: 18Nov2015 to (Last Rx:01Gok3891) Requested for: 85Yin6124 Ordered 2. Lisinopril 10 MG Oral Tablet; TAKE 1 TABLET BY MOUTH ONCE DAILY; Therapy: 00Ckm6418 to (Evaluate:36Lut7790) Requested for: 70Avm1674; Last Rx:41Etr9368 Ordered 3. Metoclopramide HCl - 5 MG Oral Tablet; TAKE 1 TABLET BY MOUTH THREE TIMES DAILY WITH MEALS; Therapy: 10Sep2014 to (Evaluate:70Qyo0587) Requested for: 90Odg7573; Last Rx:30Uuj2013 Ordered 4. Tylenol Extra Strength 500 MG Oral Tablet; Therapy: (Recorded:87Qad0941) to Recorded 5. Warfarin Sodium 5 MG Oral Tablet; Take as directed by ACC; Therapy: 27Qaj6694 to (Evaluate:09Ytm6319) Requested for: 19Feb2016; Last Rx:19Feb2016 Ordered Allergies [...] Vital Signs [Data Includes: Current Encounter] Recorded: 34Ery8146 10:06AM Blood Pressure 124 / 71 Heart [...] Casey Berry DO; Apr 02 2016 8:50AM PAINT LINE OPERATOR * Casey Berry II, DO - 01/28/2016 [...] use sparingly qid; Therapy: 18Nov2015 to (Last Rx:09Eqq6524) Requested for: 19Pub5718 Ordered 2. Lisinopril 10 MG Oral Tablet; TAKE 1 TABLET BY MOUTH ONCE DAILY; Therapy: 24Giv5726 to (Evaluate:12Khz3954) Requested for: 54Adn0667; Last Rx:63Qtl7059 Ordered 3. Metoclopramide HCl - 5 MG Oral Tablet; TAKE 1 TABLET BY MOUTH THREE TIMES DAILY WITH MEALS; Therapy: 10Sep2014 to (Evaluate:22Tic0071) Requested for: 59Kjd7866; Last Rx:81Btr3404 Ordered 4. Tylenol Extra Strength 500 MG Oral Tablet; Therapy: (Recorded:18Nov2015) to Recorded 5. Xarelto 15 MG Oral Tablet; TAKE 1 TABLET DAILY Requested for: 08Jan2016; Last Rx:08Jan2016 Ordered Allergies 1. Penicillins 2. Sulfa Drugs Social History 1. Former smoker: 0 - 10 pack years (V15.82) (Z87.891) Vitals Vital Signs [Data Includes: Current Encounter] Recorded: 74Quz4837 10:31AM Blood Pressure 139 / 83 Heart [...] Casey Berry DO; Feb 11 2016 7:47AM PAINT LINE OPERATOR * Casey Berry II, DO - 12/11/2015 12:00 AM CDT Chief Complaint/Reason for Visit f/up ct History of Present Illness This is a 70-year-old male who recently underwent a stress test. The stress test showed no major abnormality, however, it was suggested of an aneurysm. 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 [place] that the CT scan would be a [...] 1 TABLET BY MOUTH ONCE DAILY; Therapy: 99Afo6401 to (Evaluate:54Dnk3602) Requested for: 13Bdl3146; Last Rx:64Mrg8264 Ordered 3. Metoclopramide HCl - 5 MG Oral Tablet; TAKE 1 TABLET BY MOUTH THREE TIMES DAILY WITH MEALS; Therapy: 10Sep2014 to (Evaluate:78Xna8075) Requested for: 03Dec2015; Last Rx:91Rgp3724 Ordered 4. Tylenol Extra Strength 500 MG [...] Casey Berry DO; Dec 30 2015 8:19AM PAINT LINE OPERATOR * Casey Berry II, DO - 11/18/2015 12:00 AM CDT Chief Complaint/Reason for Visit ER follow up History of Present Illness This is a 69-year-old male who has a long history of paroxysmal tachycardia. He recently had an episode of paroxysmal tachycardia. He went in to the ER in [place] and found that he had a flutter [...] INHALE ONE SPRAY TWICE DAILY PRN; Therapy: 03Kyn1768 to Requested for: 03Jan2014 Recorded 2. Lisinopril 10 MG Oral Tablet; TAKE 1 TABLET BY MOUTH ONCE DAILY; Therapy: 17Lta4866 to (Evaluate:51Lvo3399) Requested for: 12Okj1215; Last Rx:65Gkl7214 Ordered 3. Metoclopramide HCl - 5 MG Oral Tablet; TAKE 1 TABLET BY MOUTH THRE E TIMES DAILY WITH MEALS; Therapy: 10Sep2014 to (Evaluate:53Yqu3721) Requested for: 97Iwx5374; Last Rx:01Oiy5812 Ordered 4. Metoprolol Tartrate 25 MG Oral [...] Casey Berry DO; Nov 26 2015 8:06AM PAINT LINE OPERATOR documented in this encounter H&P Notes * [...] INHALE ONE SPRAY TWICE DAILY PRN; Therapy: 35Rus0060 to Requested for: 03Jan2014 Recorded 3. Lisinopril 10 MG Oral Tablet; TAKE 1 TABLET BY MOUTH ONCE DAILY; Therapy: 04Bau0409 to (Evaluate:92Myb4544) Requested for: 81Jbf3449; Last Rx:10Phq2377 Ordered 4. Metoclopramide HCl - 5 MG Oral Tablet; TAKE 1 TABLET BY MOUTH THRE E TIMES DAILY WITH MEALS; Therapy: 10Sep2014 to (Evaluate:88Usw3137) Requested for: 94Wvp3996; Last Rx:97Xqt5118 Ordered 5. Vitamin D3 1000 UNIT Oral [...] healthy by no longer smoking.; Status:Complete; Done: 85Lkg3600 1.Prevnar shot. 2.CBC, vitamin D, PSA, comp, and lipid. 3.Did discuss with patient about his foot. Signatures Casey Berry II, D.OWilliam/jaj-08 Electronically signed by : Casey Berry DO; Sep 19 2015 8:13AM PAINT LINE OPERATOR documented in this encounter Procedure Notes * Casey Berry II, DO - 11/26/2015 12:00 AM CDTAssociated Order(s): NUCLEAR MEDICINE NUCLEAR MEDICINE CRISTIAN BLEDSOE : 1945 HX: [id number] DOS: 11/26/2015 Lexiscan portion of Lexiscan Cardiolite. [...] by:Casey Berry DO Dec 03 2015 7:45AM PAINT LINE OPERATOR documented in this encounter Miscellaneous Notes * [...] [facility] Electronically signed by:DEYANIRA FRANCOIS Sep 09 2015 11:25AM PAINT LINE OPERATOR documented in this encounter Plan of Treatment Not on file documented as of this encounter Procedures Procedure Name Priority Date/Time Associated Diagnosis Comments NUCLEAR MEDICINE 11/26/2015 documented in this encounter Results * NUCLEAR MEDICINE (11/26/2015) Anatomical Region Laterality Modality Other Narrative Procedure Note Casey Berry II, DO - 11/26/2015 12:00 AM CDT NUCLEAR MEDICINE CRISTIAN BLEDSOE : 1945 HX: [id number] DOS: 11/26/2015 Lexiscan portion of Lexiscan Cardiolite. BASELINE EKG: Shows no abnormality of note. PROTOCOL: Patient was given Lexiscan and Cardiolite. He had no majorcomplaints. EKG CHANGES NOTED DURING TEST: EKG showed no changes. IMPRESSION: 1. Normal Lexiscan portion of Lexiscan Cardiolite. RECOMMENDATIONS: We will await radiologic portion of test. Casey Berry II, D.O./jaj-23 Electronically signed by:Casey Berry DO Dec 03 2015 7:45AM PAINT LINE OPERATOR Casey Berry II, DO RAD NUCLEAR M EDICINE documented in this encounter Visit Diagnoses Not on filedocumented in this encounter Care Teams Oracle Security Consultant Relationship Specialty Start Date End Date Casey Berry II, DO PCP - General 11/22/06 08/17/19 Stephani Aleman MD PCP - General Family Medicine 08/18/19 09/16/20 Bianka Loera INSTRUMENT LENS GRINDER [address] [facility] [address] [place] [address] PCP - General Nurse Practitioner Family 09/17/20 712/31 Desiree Patrick MD [address] [place] [address] PCP - General Electrophysiology 02/23/22 03/09/22 [place] [address] [place] [address] 08/09/17 Farrah Nicole APRN,ALEX [address] [place] [address] 08/09/17 Bry Echevarria MD [address] [place] [address] 08/09/17 Casey Berry II, DO 08/09/17 Shruti Vergara RN RN Registered Nurse 08/27/20 documented as of this encounter Additional Source Comments PLEASE NOTE: Replies to this message will not be received.[facility] and [facility]
--- OUTSIDE RECORDS SUMMARY | 2024-06-16 11:33 | XMS_ITS | Encounter Summary ---
Author Organization [employer] Address [address] [place] [address] Care Team Providers Care Database Reporting Consultant Name Role Phone Jamal CARLISLE DO, Robert William Primary Care Provide r Unavailable Desiree Patrick MD Unavailable Farrah Nicole APRN,MANAGER BOOKS Unavailable Bry Echevarria MD Unavailable Jamal CARLISLE DO, Robert William Unavailable Unav Stephani Diaz MD Primary Care Provider Shruti Vergara RN Unavailable Unavailable Bianka Loera CNP Primary Care Provider [phone] Desiree Patrick MD Primary Care P rovider Encounter Details Date Type Department Care Team (Late st Contact Info) Description 01/03/2014 Historical Conversion [facility] Family Medicine [address] [place] [id number] Errol Berry II, DO Social History Tobacco [...] AM CDT CRISTIAN BLEDSOE : 1945 HX: [id number] DOS: 01/03/2014 CHIEF COMPLAINT: Back pain. HISTORY [...] by:ERROL BERRY D.O. Jan 17 2014 7:34AM CUSTOM SHOE DESIGNER AND MAKER documented in this encounter Plan of Treatment Not on file documented as of this encounter Visit Diagnoses Not on filedocumented in this encounter Care Teams Database Reporting Consultant Relationship Specialty Start Date End Date Errol Berry II, DO PCP - General 11/22/06 08/17/19 Stephani Aleman MD PCP - General Family Medicine 08/18/19 09/16/20 Bianka Loera MECHANICAL ENGINEERING TEACHER [address] [place] [address] PCP - General Nurse Practitioner Family 09/17/20 7/12/31 Desiree Patrick MD [address] [place] [address] PCP - General Electrophysiology 02/23/22 03/09/22 Desiree Patrick MD [address] [place] [address] 08/09/17 Farrah Nicole APRN,MANAGER BOOKS [address] [place] [address] 08/09/17 Bry Echevarria MD [facility] [place] [address] 08/09/17 Errol Berry II, DO 08/09/17 Shruti Vergara RN RN Registered Nurse 08/27/20 documented as of this encounter Additional Source Comments PLEASE NOTE: Replies to this message will not be received.[facility] and [facility]
--- OUTSIDE RECORDS SUMMARY | 2024-06-16 11:33 | XMS_ITS | Encounter Summary ---
Author Organization [facility] [employer] [facility] Address [address] [place] [address] Care Team Providers Care Gimp Buttonhole Machine Operator Name Role Phone Jamal CARLISLE DO, Robert William Primary Care Provide r Unavailable Desiree Patrick MD Unavailable Farrah Nicole APRN,PARADICHLOROBENZENE TENDER Unavailable [phone] Bry Echevarria MD Unavailable [phone] Jamal CARLISLE DO, Robert William Unavailable Unav Stephani Diaz MD Primary Care Provider [phone] Shruti Vergara RN Unavailable Unavailable Bianka Loera CNP Primary Care Provider Desiree Patrick MD Primary Care P rovider Encounter Details Date Type Department Care Team (Late st Contact Info) Description 11/26/2015 HIM Systems Integration Analyst [facility] Heart & Vascular [address] [address] Rajeev Barlow MD Social History [...] Order(s): MYOCARDIAL PERFUSION PHARMACOLOGIC STRESS PERFORMED BY: [facility] [employer] [facility] [place] SITE: [place], [place] INTERPRETED BY: [facility] [place], [place] PHARMACOLOGIC MYOCARDIAL PERFUSION SCAN Study [...] TYPE: Rest/stress, single isotope gated SPECT imaging. Lo37d-[id number]: 12.5 mCi (IV) for the rest injection. Hi09t-MHMCFZUSK: 33.1 mCi (IV) for the stress injection. [...] function. Note: This study was performed by [employer]. Only the interpretation was performed at the [place] [facility] [place]. Electronically signed Rajeev Barlow MD, [facility] Edi Consultant , 03:10 P A dsc/Doc#: [id number] cc: documented in this encounter Plan of Treatment Not on file documented as of this encounter Procedures Procedure Name Priority Date/Time Associated Diagnosis Comments MYOCARDIAL PERFUSION PHARMACOLOGIC STRESS 11/26/2015 documented in this encounter Results * MYOCARDIAL PERFUSION PHARMACOLOGIC STRESS (11/26/2015) Anatomical Region Laterality Modality Other 11/26/2015 Narrative Procedure Note Rajeev Barlow MD - 11/26/2015 12:00 AM CDT PERFORMED BY: [employer] [place], [place] SITE: [place], [place] INTERPRETED BY: [place] PHARMACOLOGIC MYOCARDIAL PERFUSION SCAN Study supervised [...] TYPE: Rest/stress, single isotope gated SPECT imaging. An90t-[id number]: 12.5 mCi (IV) for the rest injection. Pb63m-WUFAUKPPW: 33.1 mCi (IV) for the stress injection. [...] function. Note: This study was performed by [employer] [facility] [employer]. Only theinterpretation was performed at the [facility] [place]. Electronically signed Rajeev Barlow MD, [facility] Edi Consultant , 03:10 P A dsc/Doc#: [id number] cc: Rajeev Barlow MD CAR NUC MED/STRESS documented in this encounter Visit Diagnoses Not on filedocumented in this encounter Care Teams Gimp Buttonhole Machine Operator Relationship Specialty Start Date End Date Casey Berry II, DO PCP - General 11/22/06 08/17/19 Stephani Aleman MD PCP - General Family Medicine 08/18/19 09/16/20 Bianka Loera CNP [address] [place] [address] PCP - General Nurse Practitioner Family 09/17/2001/10 Desiree Patrick MD [address] [place] [address] PCP - General Electrophysiology 02/23/22 03/09/22 Desiree Patrick MD [address] [place] [address] 08/09/17 Farrah Nicole APRN,PARADICHLOROBENZENE TENDER [address] [place] [address] 08/09/17 Bry Echevarria MD [address] [place] [address] 08/09/17 Casey Berry II, DO 08/09/17 Shruti Vergara RN RN Registered Nurse 08/27/20 documented as of this encounter Additional Source Comments PLEASE NOTE: Replies to this message will not be received.[facility]
--- OUTSIDE RECORDS SUMMARY | 2024-06-16 11:33 | XMS_ITS | Encounter Summary ---
Author Organization [employer] Address [address] [place] [address] Care Team Providers Care Snake Charmer Name Role Phone Jamal CARLISLE DO, Robert William Primary Care Provide r Unavailable Desiree Patrick MD Unavailable Farrah Nicole APRN,CARBON DIOXIDE OPERATOR Unavailable Bry Echevarria MD Unavailable Jamal CARLISLE DO, Robert William Unavailable Unav Stephani Diaz MD Primary Care Provider Shruti Vergara RN Unavailable Unavailable Bianka Loera CNP Primary Care Provider Desiree Patrick MD Primary Care P rovider Encounter Details Date Type Department Care Team (Late st Contact Info) Description 09/10/2014 Historical Conversion [facility] Family Medicine [address] [place] [address] Casey Berry II, DO Social History Tobacco Use Types Packs/Day Years Used Date Smoking Tobacco: Never Assessed Sex and Gender Information Value Date Recorded Sex Assigned at Not on file Gender Identity Not on file Sexual Orientation Not on file documented as of this encounter Last Filed Vital Signs Vital Sign Reading Time Taken Comments Blood Pressure 130/80 09/10/2014 12:00 AM CLASSROOM AIDE Pulse - - Temperature - - Respiratory Rate - - Oxygen Saturation - - Inhaled Oxygen Concentration - - Weight 93.9 kg (207 lb 0.2 oz) 09/10/2014 12:00 AM CLASSROOM AIDE Height - - Body Mass Index 27.31 08/22/2014 12:00 AM CLASSROOM AIDE documented in this encounter Plan of Treatment Not on file documented as of this encounter Visit Diagnoses Not on filedocumented in this encounter Care Teams Snake Charmer Relationship Specialty Start Date End Date Casey Berry II, DO PCP - General 11/22/06 08/17/19 Stephani Aleman MD PCP - General Family Medicine 08/18/19 09/16/20 Bianka Loera CNP [address] [place] [address] [address] [place] [phone] PCP - General Nurse Practitioner Family 09/17/2001/10 Desiree Patrick MD [address] [place] [address] PCP - General Electrophysiology 02/23/22 03/09/22 Desiree Patrick MD [address] [place] [address] 08/09/17 Farrah Nicole APRN,CARBON DIOXIDE OPERATOR [address] [place] [address] 08/09/17 Bry Echevarria MD [address] [place] [address] [place] [phone] 08/09/17 Casey Berry II, DO 08/09/17 Shruti Vergara RN RN Registered Nurse 08/27/20 documented as of this encounter Additional Source Comments PLEASE NOTE: Replies to this message will not be received.[facility] and [facility]
--- OUTSIDE RECORDS SUMMARY | 2024-06-16 11:33 | XMS_ITS | Encounter Summary ---
Author Organization [employer] Address [address] [place] [address] Care Team Providers Care Corn Husker Machine Operator Name Role Phone Jamal CARLISLE DO, Robert William Primary Care Provide r Unavailable Desiree Patrick MD Unavailable Farrah Nicole APRN,AIRCRAFT ENGINE DISMANTLER Unavailable Bry Echevarria MD Unavailable [phone] Jamal CARLISLE DO, Robert William Unavailable Unav Stephani Diaz MD Primary Care Provider [phone] Shruti Vergara RN Unavailable Unavailable Bianka Loera CNP Primary Care Provider [phone] Desiree Patrick MD Primary Care P rovider Encounter Details Date Type Department Care Team (Late st Contact Info) Description 09/02/2016 Historical Conversion [facility] Family Medicine [address] [place] [address] Casey El II, DO Social History Tobacco [...] Comments Blood Pressure 151/81 09/02/2016 12:00 AM HOT SHOT Pulse - - Temperature - - Respiratory Rate - - Oxygen Saturation - - Inhaled Oxygen Concentration - - Weight 93.5 kg (206 lb 2.1 oz) 09/02/2016 12:00 AM HOT SHOT Height 185.1 cm (6' 0.87) 09/02/2016 12:00 AM Saúl WARE Body Mass Index 27.29 09/02/2016 12:00 AM HOT SHOT documented in this encounter Functional Status Functional [...] as needed; Therapy: 10Sep2014 to Requested for: 02Pmj6704 Recorded 7. Metoprolol Tartrate 50 MG Oral Tablet; TAKE 1 TABLET TWICE DAILY; Therapy: (Recorded:21Oct2016) to Recorded 8. Tylenol Extra Strength 500 MG Oral Tablet; Therapy: (Recorded:18Nov2015) to Recorded 9. Warfarin Sodium 5 MG Oral Tablet; Take as directed by [facility]; Therapy: 86Taa3617 to (Evaluate:01Iim2620) Requested for: 29Gyf0542; Last Rx:35Jyf3250 Ordered Allergies 1. Penicillins 2. Sulfa Drugs [...] Casey El DO; Apr 16 2017 8:13AM HOT SHOT * Casey El II, DO - 11/30/2016 [...] healthy by no longer smoking.; Status:Complete; Done: 25Ugj6989 Counseling Total time of encounter was 20 [...] first. At this point in time, the Rental Clerk has not stated that he a risk [...] as needed; Therapy: 10Sep2014 to Requested for: 71Qcm1201 Recorded 4. Metoprolol Tartrate 50 MG Oral Tablet; TAKE 1 TABLET TWICE DAILY; Therapy: (Recorded:21Oct2016) to Recorded 5. Tylenol Extra Strength 500 MG Oral Tablet; Therapy: (Recorded:18Nov2015) to Recorded 6. Warfarin Sodium 5 MG Oral Tablet; Take as directed by [facility]; Therapy: 34Izp2519 to (Evaluate:12Nov2017) Requested for: 17Nov2016 Recorded Allergies 1. Penicillins 2. Sulfa Drugs Vitals Recorded: 30Nov2016 10:12AM Systolic 121 Diastolic 83 Heart Rate 106 Respiration 20 Temperature 98 F Weight 94.2 kg BMI Calculated 27.49 BSA Calculated 2.18 O2 Saturation 97 Physical Exam Deferred. Signatures Casey El II, D.OWilliam/pj-30 Electronically signed by : Casey El DO; Dec 09 2016 1:14PM HOT SHOT * Casey El II, DO - 10/26/2016 12:00 AM CDT Assessment 1. Former smoker: 0 - 10 pack years (V15.82) (Z87.891) Atrial fibrillation/flutter. Plan Awaiting Holter monitor to see what is going to be done next with the Rental Clerk and most likely,Electrophysiology. We finally did get the results from the Holter which showed flutter and they will send him to see the Global Coordinator. Reason For Visit patient in for hospital [...] Extra Strength 500 MG Oral Tablet; Therapy: (Recorded:30Tjv2041) to Recorded 6. Warfarin Sodium 5 MG Oral Tablet; Take as directed by [facility]; Therapy: 29Ive5422 to (Evaluate:12Ijw5376) Requested for: 14Jul2016 Recorded Allergies 1. Penicillins 2. Sulfa Drugs Vitals Recorded: 13Yhu8193 10:40AM Systolic 117, RUE, Sitting Diastolic 73, [...] Casey El DO; Nov 06 2016 8:45AM HOT SHOT documented in this encounter H&P Notes * [...] Panel; Status:Hold For - Manual Activation; Requested for:76Jar8002; Hemoglobin A1C; Status:Hold For - Manual Activation; Requested for:01Jmo2431; SocHx: Former smoker: 0 - 10 pack years Former Smoker: Since tobacco use can have significant health risks, you are helping yourself and others stay healthy by no longer smoking.; Status:Complete; Done: 55Pow7705 Reason For Visit H & P History [...] alcohol. 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 Colonoscopy in 2009. Pneumovax 2009. Prevnar 2015. Current Meds 1. Lisinopril 10 MG Oral Tablet; TAKE 1 TABLET BY MOUTH ONCE DAILY; Therapy: 68Rft8475 to (Evaluate:89Mmy6212) Requested for: 13Jul2016; Last Rx:13Jul2016 Ordered 2. Metoclopramide HCl - 5 MG Oral Tablet; TAKE 1 TABLET as needed; Therapy: 10Sep2014 to Requested for: 02Sep2016 Recorded 3. Metoprolol Tartrate 25 MG Oral Tablet; 1 prn a fib; Therapy: (Recorded:02Sep2016) to Requested for: 02Sep2016 Recorded 4. Tylenol Extra Strength 500 MG Oral Tablet; Therapy: (Recorded:96Ukw9862) to Recorded 5. Warfarin Sodium 5 MG Oral Tablet; Take as directed by [facility]; Therapy: 28Jan2016 to (Evaluate:87Ocq0789) Requested for: 14Jul2016 Recorded Allergies 1. Penicillins [...] rash. /RECTAL: Done by urology. Results/Data PHQ-9 49Luh9786 12:00AM Casey El Test Name Result Flag Reference PHQ-9 0 Alcohol & Drug Questionnaire for Adults 26Qzm9554 12:00AM Casey El Test Name Result Flag Reference Alcohol & Drug Questionnaire for Adults 3 Nurse Note Pt given heel cups by dr el. #30726 qty 2. mquam slicing machine feeder Recorded as Task Date: 09/14/2016 01:01 PM, [...] if you have any questions! Cherelle Gomez [facility] #[id number] Kelly Walls - 15 Sep 2016 7:16 AM TASK REASSIGNED: Previously Assigned To Kelly Walls Michelle - 15 Sep 2016 9:00 AM TASK REASSIGNED: Previously Assigned To Casey El per dr el- dx plantar fasciitis M72.2 thanks. mquam slicing machine feeder Signatures Casey El II D.Veena/la-3 Electronically signed by : Casey El DO; Sep 11 2016 1:25PM HOT SHOT Electronically signed by : Casey El DO; Sep 16 2016 12:34PM HOT SHOT documented in this encounter Plan of Treatment Not on file documented as of this encounter Visit Diagnoses Not on filedocumented in this encounter Care Teams Corn Husker Machine Operator Relationship Specialty Start Date End Date Casey El II, DO PCP - General 11/22/06 08/17/19 Stephani Aleman MD PCP - General Family Medicine 08/18/19 09/16/20 Bianka Loera WEAVER HAND LOOM [address] [facility] [place] [address] PCP - General Nurse Practitioner Family 09/17/20 7/2 12/31 Desiree Patrick MD [address] [place] [address] PCP - General Electrophysiology 02/23/22 03/09/22 Desiree Patrick MD [address] [place] [address] 08/09/17 Farrah Nicole APRN,AIRCRAFT ENGINE DISMANTLER [address] [place] [address] 08/09/17 Bry Echevarria MD [address] [place] [address] [place] [address] 08/09/17 Casey El II, DO 08/09/17 Shruti Vergara, RN RN Registered Nurse 08/27/20 documented as of this encounter Additional Source Comments PLEASE NOTE: Replies to this message will not be received.[facility]
--- OUTSIDE RECORDS SUMMARY | 2024-06-16 11:33 | XMS_ITS | Encounter Summary ---
Author Organization [employer] Address [address] [place] [address] Care Team Providers Care Inker Machine Name Role Phone Jamal CARLISLE DO, Robert William Primary Care Provide r Unavailable Desiree Patrick MD Unavailable Farrah Nicole APRN,SYSTEMS TECHNOLOGIST Unavailable [phone] Bry Echevarria MD Unavailable Jamal CARLISLE DO, Robert William Unavailable Unav Stephani Diaz MD Primary Care Provider [phone] Shruti Vergara RN Unavailable Unavailable Bianka Loera CNP Primary Care Provider [phone] Desiree Patrick MD Primary Care P rovider Encounter Details Date Type Department Care Team (Late st Contact Info) Description 10/26/2016 Historical Conversion [facility] Family Medicine [address] [place] [address] Casey Berry II, DO Social History Tobacco [...] on filedocumented in this encounter Care Teams Inker Machine Relationship Specialty Start Date End Date Casey Berry II, DO PCP - General 11/22/06 08/17/19 Stephani Aleman MD PCP - General Family Medicine 08/18/19 09/16/20 Bianka Loera CNP [address] [place] [address] [address] [place] [phone] PCP - General Nurse Practitioner Family 09/17/2001/10 [place] [address] [place] [address] PCP - General Electrophysiology 02/23/22 03/09/22 Desiree Patrick, MD [address] [place] [address] 08/09/17 Farrah Nicole APRN,[facility] [address] [place] [address] 08/09/17 Bry Echevarria MD [address] [place], [place] [address] [address] 08/09/17 Casey Berry II, DO 08/09/17 Shruti Vergara RN RN Registered Nurse 08/27/20 documented as of this encounter Additional Source Comments PLEASE NOTE: Replies to this message will not be received.[facility] and [facility]
--- OUTSIDE RECORDS SUMMARY | 2024-06-16 11:33 | XMS_ITS | Encounter Summary ---
Author Organization [employer] Address [address] [place] [address] Care Team Providers Care Repairer General Name Role Phone Jamal CARLISLE DO, Robert William Primary Care Provide r Unavailable Desiree Patrick MD Unavailable Farrah Nicole APRN,SALES DEVELOPMENT EXECUTIVE Unavailable Bry Echevarria MD Unavailable Jamal CARLISLE DO, Robert William Unavailable Unav Stephani Diaz MD Primary Care Provider Shruti Vergara RN Unavailable Unavailable Bianka Loera CNP Primary Care Provider [phone] Desiree Patrick MD Primary Care P rovider Encounter Details Date Type Department Care Team (Late st Contact Info) Description 10/17/2016 Historical Conversion [facility] Family Medicine [address] [place] [address] Social History Tobacco Use Types Packs/Day Years [...] of this encounter Nursing Notes * [facility], GENERICPROVIDER - 10/17/2016 12:00 AM CDT Rohan presented to Urgent Care with complaint of feeling like his heart is racing, he can feel it pounding and a tighness in his chest occurs when this happens. He was seen at [facility] 10 days ago for an episode [...] to be evaluatedin the Emergency Room at [facility]. Patient and his elected to go by private car with patients driving. Electronically signed by:Tammy Coronado RN Oct 17 2016 2:09PM MULTIGRAPH OPERATOR AMENDMENTS: 1. Patient declines shortness of breath, radiating neck pain, shoulderblade pain or sternal pain. Electronically signed by:Tammy Coronado RN Oct 17 2016 2:14PM MULTIGRAPH OPERATOR documented in this encounter Plan of Treatment Not on file documented as of this encounter Visit Diagnoses Not on filedocumented in this encounter Care Teams Repairer General Relationship Specialty Start Date End Date Casey Berry II, DO PCP - General 11/22/06 08/17/19 Stephani Aleman MD PCP - General Family Medicine 08/18/19 09/16/20 Bianka Loera CNP [address] [place] [address] PCP - General Nurse Practitioner Family 09/17/2001/10 Desiree Patrick MD [address] [place] [address] PCP - General Electrophysiology 02/23/22 03/09/22 Desiree Patrick MD [address] [place] [address] 08/09/17 Farrah Nicole APRN,SALES DEVELOPMENT EXECUTIVE [address] [place] [address] 08/09/17 Bry Echevarria MD [address] [place] [phone] 08/09/17 Casey Berry II, DO 08/09/17 Shruti Vergara, RN RN Registered Nurse 08/27/20 documented as of this encounter Additional Source Comments PLEASE NOTE: Replies to this message will not be received.[facility] and [facility]
--- OUTSIDE RECORDS SUMMARY | 2024-06-16 11:33 | XMS_ITS | Encounter Summary ---
Author Organization [employer] Address [address] [place] [address] Care Team Providers Care Campground Caretaker Name Role Phone Jamal CARLISLE DO, Robert William Primary Care Provide r Unavailable Desiree Patrick MD Unavailable Farrah Nicole APRN,PRESIDENT AND CMO Unavailable Bry Echevarria MD Unavailable Jamal CARLISLE DO, Robert William Unavailable Unav Stephani Diaz MD Primary Care Provider Shruti Vergara RN Unavailable Unavailable Bianka Loera CNP Primary Care Provider [phone] Desiree Patrick MD Primary Care P rovider Encounter Details Date Type Department Care Team (Late st Contact Info) Description 12/11/2015 Historical Conversion [facility] Family Medicine [address] [place] [address] Casey Brery II, DO Social History Tobacco Use Types [...] on filedocumented in this encounter Care Teams Campground Caretaker Relationship Specialty Start Date End Date Casey Berry II, DO PCP - General 11/22/06 08/17/19 Stephani Aleman MD PCP - General Family Medicine 08/18/19 09/16/20 Bianka Loera CNP [address] [place] [phone] PCP - General Nurse Practitioner Family 09/17/2001/10 [place] [address] [place] [address] PCP - General Electrophysiology 02/23/22 03/09/22 Desiree Patrick MD [address] [facility] [place] [address] 08/09/17 Farrah Nicole APRN,[facility] [address] [place] [address] 08/09/17 Bry Echevarria MD [address] [place] [address] [place] [address] 08/09/17 Casey Berry II, DO 08/09/17 Shruti Vergara RN RN Registered Nurse 08/27/20 documented as of this encounter Additional Source Comments PLEASE NOTE: Replies to this message will not be received.[facility] and [facility]
--- OUTSIDE RECORDS SUMMARY | 2024-06-16 11:33 | XMS_ITS | Encounter Summary ---
Author Organization [employer] Address [address] [place] [address] Care Team Providers Care Customer Program Specialist Name Role Phone Jamal CARLISLE DO, Robert William Primary Care Provide r Unavailable Desiree Patrick MD Unavailable Farrah Nicole APRN,BLOW OFF WORKER Unavailable Bry Echevarria MD Unavailable [phone] Jamal CARLISLE DO, Robert William Unavailable Unav Stephani Diaz MD Primary Care Provider Shruti Vergara RN Unavailable Unavailable Bianka Loera CNP Primary Care Provider Desiree Patrick MD Primary Care P rovider Encounter Details Date Type Department Care Team (Late st Contact Info) Description 08/22/2014 Historical Conversion [facility] Family Medicine [address] [place] [address] Casey Berry II, DO Social History Tobacco Use Types Packs/Day Years Used Date Smoking Tobacco: Never Assessed Sex and Gender Information Value Date Recorded Sex Assigned at Not on file Gender Identity Not on file Sexual Orientation Not on file documented as of this encounter Progress Notes * Casey Berry II, DO - 01/29/2015 12:00 AM CDT CRISTIAN BLEDSOE : 1945 HX: [id number] DOS: 01/29/2015 CHIEF COMPLAINT: Follow up after [...] by:Casey Berry D.O. Feb 11 2015 7:55AM JUKE BOX MECHANIC * Casey Berry II, DO - 09/10/2014 12:00 AM CST CRISTIAN BLEDSOE : 1945 HX: [id number] DOS: 09/10/2014 CHIEF COMPLAINT: Follow up of [...] by:Casey Berry D.O. Sep 26 2014 3:33PM JUKE BOX MECHANIC documented in this encounter Miscellaneous Notes * [...] you have any questions. Casey Berry DO [facility] Electronically signed by:DEYANIRA FRANCOIS Dec 06 2014 9:03AM JUKE BOX MECHANIC documented in this encounter Plan of Treatment Not on file documented as of this encounter Visit Diagnoses Not on filedocumented in this encounter Care Teams Customer Program Specialist Relationship Specialty Start Date End Date Casey Berry II, DO PCP - General 11/22/06 08/17/19 Stephani Aleman MD PCP - General Family Medicine 08/18/19 09/16/20 Bianka Loera, OILSEED MEAT PRESSER [address] [place] [phone] PCP - General Nurse Practitioner Family 09/17/2001/10 Desiree Patrick MD [address] [place] [address] PCP - General Electrophysiology 02/23/22 03/09/22 Desiree Patrick MD [address] [place] [address] 08/09/17 Farrah Nicole APRN,BLOW OFF WORKER [address] [place] [address] 08/09/17 Bry Echevarria MD [address] [place] [address] [place] [address] 08/09/17 Casey Berry II, DO 08/09/17 Shruti Vergara RN RN Registered Nurse 08/27/20 documented as of this encounter Additional Source Comments PLEASE NOTE: Replies to this message will not be received.[facility] and [facility]
--- OUTSIDE RECORDS SUMMARY | 2024-06-16 11:33 | XMS_ITS | Encounter Summary ---
Author Organization [facility] Address [address] [place] [address] Care Team Providers Care Community Service Representative Name Role Phone Jamal CARLISLE DO, Robert William Primary Care Provide r Unavailable Desiree Patrick MD Unavailable Farrah Nicole APRN,LIGHT COIL WINDER Unavailable Bry Echevarria MD Unavailable Jamal CARLISLE DO, Robert William Unavailable Unav Stephani Diaz MD Primary Care Provider Shruti Vergara RN Unavailable Unavailable Bianka Loera CNP Primary Care Provider Desiree Patrick MD Primary Care P rovider Encounter Details Date Type Department Care Team (Late st Contact Info) Description 11/19/2015 HIM Veneer Jointer [facility] [place] [address] [place] [address] Dionisio Meneses MD [address] [place] [address] Social History Tobacco Use Types [...] ADULT WITH OR WITHOUT CONTRAST PERFORMED BY: [place] SITE: [place] INTERPRETED BY: [facility] [place] TRANSTHORACIC ECHOCARDIOGRAM REPORT REFERRING DIAGNOSIS: Atrial [...] comparison. Note: This study was performed by [facility] [employer] for [place]. Only the interpretation wasperformed at the [facility]. Electronically signed Dionisio Meneses MD, [facility] Veterans Service Officer , 04:04 P A vd/Doc#: [id number] cc: Adult Normal Value Adult Patient Values [...] kg Blood pressure: 126/75 Previous study: -- Linderman Machine Operator: Lisa documented in this encounter Plan of [...] - 11/19/2015 12:00 AM CDT PERFORMED BY: [place] SITE: [place] INTERPRETED BY: [facility] V[facility] [place], [place] TRANSTHORACIC ECHOCARDIOGRAM REPORT REFERRING DIAGNOSIS: Atrial [...] Note: This study was performed by [facility]Only the interpretation was performed at the [facility]. Electronically signed Dionisio Meneses MD, [facility] Veterans Service Officer , 04:04 P A vd/Doc#: [id number] cc: Adult Normal Value Adult Patient Values [...] V: TR Velocity 2.5 M/S 26(+RAP) mmHgpp AVAcm Diastolic Fx: MV E/A MV dt ms E' sept 5.3 cm/sec IVRT msE/e' 10.8 E' lat 6.8 cm/sec IMPRESSION: Patient height: 186 cm Patient weight: 89.7 kg Blood pressure: 126/75 Previous study: -- [place] Machine Operator: Lisa Dionisio Meneses MD CAR ULTRASOUND documented in this encounter Visit Diagnoses Not on filedocumented in this encounter Care Teams Community Service Representative Relationship Specialty Start Date End Date Casey Berry II, DO PCP - General 11/22/06 08/17/19 Stephani Aleman MD PCP - General Family Medicine 08/18/19 09/16/20 Bianka Loera CONFLICT RESOLUTION PROFESSIONAL [address] [place] [phone] PCP - General Nurse Practitioner Family 09/17/20 712/31 Desiree Patrick MD [address] [place] [address] PCP - General Electrophysiology 02/23/22 03/09/22 Desiree Patrick MD [address] [place] [address] 08/09/17 Farrah Nicole APRN,LIGHT COIL WINDER [address] [place] [phone] 08/09/17 Bry Echevarria MD [address] [phone] 08/09/17 Casey Berry II, DO 08/09/17 Shruti Vergara RN RN Registered Nurse 08/27/20 documented as of this encounter Additional Source Comments PLEASE NOTE: Replies to this message will not be received.[facility] and [facility]
--- OUTSIDE RECORDS SUMMARY | 2024-06-16 11:33 | XMS_ITS | Encounter Summary ---
Author Organization [employer] Address [address] [place] [address] Care Team Providers Care Bariatric Program Coordinator Name Role Phone Jamal CARLISLE DO, Robert William Primary Care Provide r Unavailable Desiree Patrick MD Unavailable Farrah Nicole APRN,NET UI DEVELOPER Unavailable Bry Echevarria MD Unavailable [phone] Jamal CARLISLE DO, Robert William Unavailable Unav Stephani Diaz MD Primary Care Provider Shruti Vergara RN Unavailable Unavailable Bianka Loera CNP Primary Care Provider [phone] Desiree Patrick MD Primary Care P rovider Encounter Details Date Type Department Care Team (Late st Contact Info) Description 03/10/2016 Historical Conversion [facility] Family Medicine [address] [place] [address] Casey Berry II, DO Social History Tobacco [...] on filedocumented in this encounter Care Teams Bariatric Program Coordinator Relationship Specialty Start Date End Date Casey Berry II, DO PCP - General 11/22/06 08/17/19 Stephani Aleman MD PCP - General Family Medicine 08/18/19 09/16/20 Bianka Loera CNP [address] [place] [phone] PCP - General Nurse Practitioner Family 09/17/2001/10 [place] [address] [place] [address] PCP - General Electrophysiology 02/23/22 03/09/22 Desiree Patrick MD [address] [place] [place] [address] 08/09/17 Farrah Nicole APRN,[facility] [address] [place] [place] [facility] [place] [address] 08/09/17 Bry Echevarria MD [facility] [place] [address] 08/09/17 Casey Berry II, DO 08/09/17 Shruti Vergara RN RN Registered Nurse 08/27/20 documented as of this encounter Additional Source Comments PLEASE NOTE: Replies to this message will not be received.[facility] and [facility]
--- OUTSIDE RECORDS SUMMARY | 2024-06-16 11:33 | XMS_ITS | Encounter Summary ---
Author Organization [employer] Address [address] [place] [address] Care Team Providers Care Business Attorney Name Role Phone Jamal CARLISLE DO, Robert William Primary Care Provide r Unavailable Desiree Patrick MD Unavailable Farrah Nicole APRN,PSYCH NP Unavailable Bry Echevarria MD Unavailable [phone] Jamal CARLISLE DO, Robert William Unavailable Unav Stephani Diaz MD Primary Care Provider Shruti Vergara RN Unavailable Unavailable Bianka Loera CNP Primary Care Provider Desiree Patrick MD Primary Care P rovider Encounter Details Date Type Department Care Team (Late st Contact Info) Description 06/24/2016 Historical Conversion [facility] Family Medicine [address] [place] [address] Casey Berry II, DO Social History Tobacco [...] Comments Blood Pressure 115/76 06/24/2016 12:00 AM ORGAN FIXER Pulse - - Temperature - - Respiratory Rate - - Oxygen Saturation - - Inhaled Oxygen Concentration - - Weight 91.5 kg (201 lb 11.5 oz) 016 12:00 AM ORGAN FIXER Height - - Body Mass Index 26.61 [...] filedocumented in this encounter Care Teams Business Attorney Relationship Specialty Start Date End Date Casey Berry II, DO PCP - General 11/22/06 08/17/19 Stephani Aleman MD PCP - General Family Medicine 08/18/19 09/16/20 Bianka Loera CNP [address] [place] [phone] PCP - General Nurse Practitioner Family 09/17/2001/10 Desiree Patrick MD [address] [place] [address] PCP - General Electrophysiology 02/23/22 03/09/22 Desiree Patrick MD [address] [facility] [place] [address] 08/09/17 Farrah Nicole APRN,PSYCH NP [address] [place] [address] 08/09/17 Bry Echevarria MD [address] [place] [address] [place] [address] 08/09/17 Casey Berry II, DO 08/09/17 Shruti Vergara RN RN Registered Nurse 08/27/20 documented as of this encounter Additional Source Comments PLEASE NOTE: Replies to this message will not be received.[facility] and [facility]
--- OUTSIDE RECORDS SUMMARY | 2024-06-16 11:33 | XMS_ITS | Encounter Summary ---
Author Organization [employer] Address [address] [place] [address] Care Team Providers Care News Cameraman Name Role Phone Jamal CARLISLE DO, Robert William Primary Care Provide r Unavailable Desiree Patrick MD Unavailable Farrah Nicole APRN,PARTNERSHIP MARKETING MANAGER Unavailable Bry Echevarria MD Unavailable [phone] Jamal CARLISLE DO, Robert William Unavailable Unav Stephani Diaz MD Primary Care Provider Shruti Vergara RN Unavailable Unavailable Bianka Loera CNP Primary Care Provider [phone] Desiree Patrick MD Primary Care P rovider Encounter Details Date Type Department Care Team (Late st Contact Info) Description 08/27/2016 Historical Conversion [facility] Family Medicine [address] [place] [address]. [place] [address] Moon Maloney MD Social History Tobacco Use [...] Comments Blood Pressure 175/101 08/27/2016 12:00 AM AVIATION TECHNICIAN AIRCRAFT Pulse - - Temperature - - Respiratory Rate - - Oxygen Saturation - - Inhaled Oxygen Concentration - - Weight 95.7 kg (210 lb 15.7 oz) 017 12:00 AM AVIATION TECHNICIAN AIRCRAFT Height - - Body Mass Index 27.84 [...] on filedocumented in this encounter Care Teams News Cameraman Relationship Specialty Start Date End Date Casey Berry II, DO PCP - General 11/22/06 08/17/19 Stephani Aleman MD PCP - General Family Medicine 08/18/19 09/16/20 Bianka Loera CNP [address] [place] [phone] PCP - General Nurse Practitioner Family 09/17/2001/10 [place] [address] [place] [address] PCP - General Electrophysiology 02/23/22 03/09/22 Desiree Patrick MD [address] [facility] [place] [address] 08/09/17 Farrah Nicole APRN,[facility] [address] [place] [address] 08/09/17 Bry Echevarria MD [address] [place] [address] [place] [address] 08/09/17 Casey Berry II, DO 08/09/17 Shruti Vergara RN RN Registered Nurse 08/27/20 documented as of this encounter Additional Source Comments PLEASE NOTE: Replies to this message will not be received.[facility] and [facility]
--- OUTSIDE RECORDS SUMMARY | 2024-06-16 11:33 | XMS_ITS | Encounter Summary ---
Author Organization [employer] Address [address] [place] [address] Care Team Providers Care Kelp Cutter Name Role Phone Jamal CARLISLE DO, Robert William Primary Care Provide r Unavailable Desiree Patrick MD Unavailable Farrah Nicole APRN,ASSEMBLY LINE WORKER Unavailable Bry Echevarria MD Unavailable Jamal CARLISLE DO, Robert William Unavailable Unav Stephani Diaz MD Primary Care Provider Shruti Vergara RN Unavailable Unavailable Bianka Loera CNP Primary Care Provider Desiree Patrick MD Primary Care P rovider Encounter Details Date Type Department Care Team (Late st Contact Info) Description 01/28/2016 Historical Conversion [facility] Family Medicine [address] [place] [address] Social History Tobacco Use Types Packs/Day Years [...] as of this encounter Procedure Notes * [facility], GENERICPROVIDER - 01/28/2016 12:00 AM [...] by:Razia Duarte RN Jan 28 2016 12:46PM CHIEF CONSTRUCTION INSPECTOR documented in this encounter Plan of Treatment Not on file documented as of this encounter Procedures Procedure Name Priority Date/Time Associated Diagnosis Comments ANTICOAGULATION 01/28/2016 documented in this encounter Results * ANTICOAGULATION (01/28/2016) Narrative Procedure Note [facility], GENERICPROVIDER - 01/28/2016 12:00 AM CDT Name: CRISTIAN WILKINSN: [id number] : 1945 DOS: 01/28/2016 Cristian ia a [...] and approximately 200 lbs. [facility] any [facility] of bleeding or stroke. [...] summer as he is apart of a [employer]. Drinks green tea onoccasion; encouraged to avoid [...] by:Razia Duarte RN Jan 28 2016 12:46PM CHIEF CONSTRUCTION INSPECTOR Genericprovider [facility] OTHER documented in this encounter Visit Diagnoses Not on filedocumented in this encounter Care Teams Kelp Cutter Relationship Specialty Start Date End Date Casey Berry II, DO PCP - General 11/22/06 08/17/19 Stephani Aleman MD PCP - General Family Medicine 08/18/19 09/16/20 Bianka Loera TOBACCO SWEEPER [address] [place] [address] [place] [phone] PCP - General Nurse Practitioner Family 09/17/2001/10 Desiree Patrick MD [address] [place] [address] PCP - General Electrophysiology 02/23/22 03/09/22 Desiree Patrick MD [address] [place] [address] 08/09/17 Farrah Nicole APRN,ASSEMBLY LINE WORKER [address] [place] [address] 08/09/17 Bry Echevarria MD [address] [place] [address] 08/09/17 Casey Berry II, DO 08/09/17 Shruti Vergara RN RN Registered Nurse 08/27/20 documented as of this encounter Additional Source Comments PLEASE NOTE: Replies to this message will not be received.[facility] and [facility]
--- OUTSIDE RECORDS SUMMARY | 2024-06-16 11:33 | XMS_ITS | Encounter Summary ---
Author Organization [employer] Address [address] [place] [address] Care Team Providers Care Funds Transfer Clerk Name Role Phone Jamal CARLISLE DO, Robert William Primary Care Provide r Unavailable Desiree Patrick MD Unavailable Farrah Nicole APRN,RADIAL DRILL OPERATOR Unavailable Bry Echevarria MD Unavailable Jamal CARLISLE DO, Robert William Unavailable Unav Stephani Diaz MD Primary Care Provider Shruti Vergara RN Unavailable Unavailable Bianka Loera CNP Primary Care Provider Desiree Patrick MD Primary Care P rovider Encounter Details Date Type Department Care Team (Late st Contact Info) Description 11/07/2015 Historical Conversion [facility] Family Medicine [address] [place] [address] Moon Maloney MD Social History Tobacco Use [...] Body Mass Index 26.65 08/28/2015 12:00 AM FOOD OR BAGGAGE HANDLING RAMPMAN documented in this encounter Progress Notes * Moon Maloney MD - 11/06/2016 12:00 AM CDT UROLOGY [facility] CRISTIAN BLEDSOE : 1945 HX: [id number] DOS: 11/06/2016 SUBJECTIVE: Cristian and his are here to discuss the results of the recent prostate biopsy. We ended up taking Anurag off his Coumadin and doing a prostate biopsy because of a positive SAWMILL MOULDER OPERATOR-3 test and an elevated PSA, so [...] two cores on the left base. Adenocarcinoma [place] 7 less than 5% one of two [...] be comfortable watching him. However, with the [place] 7, I know that they are watching [...] Maloney M.D./la-1 cc: Jose Winslow M.D./[facility] cc: Casey Berry II, D.O./[facility] Electronically signed by:Moon Maloney M.D. Nov 09 2016 1:49PM FOOD OR BAGGAGE HANDLING RAMPMAN * Moon Maloney MD - 10/23/2016 12:00 AM CDT UROLOGY [facility] CRISTIAN BLEDSOE : 1945 HX: [id number] DOS: 10/23/2016 SUBJECTIVE: Cristian is here for a prostate biopsy. I saw Cristian in August. PSA has started to go up.He had a little bit of an elevated PSA and elevated PSA velocity. We did a SAWMILL MOULDER OPERATOR-3 test. It did just come back [...] negative. IMPRESSION: 1. Elevated PSA and positive SAWMILL MOULDER OPERATOR-3 test. PLAN: I told Anurag to [...] M.D./la-17 cc: Casey Berry II, D.OWilliam/[facility] Electronically signed by:Moon Maloney M.D. Oct 26 2016 12:13PM FOOD OR BAGGAGE HANDLING RAMPMAN * Moon Maloney MD - 08/27/2016 12:00 AM CST UROLOGY CRISTIAN BLEDSOE : 1945 HX: [id number] DOS: 08/27/2016 SUBJECTIVE: Cristian comes to see [...] because we are going to do a SAWMILL MOULDER OPERATOR-3 test. LABORATORY DATA: AUA symptom score is 1. He has absolutely no trouble urinating. PSA is 5.4. IMPRESSION: 1. Elevated PSA velocity. PLAN: We are going to go ahead and get a SAWMILL MOULDER OPERATOR-3 test because his velocity is really [...] going to go ahead and get a SAWMILL MOULDER OPERATOR-3 test today. Obviously if that is [...] course risks of bleeding. However, if the SAWMILL MOULDER OPERATOR-3 is negative, then I would just see him in six months for a PSA. Total time spent with the patient was 25 minutes with greater than 50% in counseling. Moon Maloney M.D./la-21 cc: Casey Berry II, D.OWilliam/[facility] Electronically signed by:Moon Maloney M.D. Sep 18 2016 1:34PM FOOD OR BAGGAGE HANDLING RAMPMAN * Moon Maloney MD - 02/11/2016 12:00 AM CDT UROLOGY CRISTIAN BLEDSOE : 1945 HX: [id number] DOS: 02/11/2016 SUBJECTIVE: Cristian comes to see [...] M.D./la-2 cc: Casey Berry, II, D.O./[facility] Electronically signed by:Moon Maloney M.D. Feb 24 2016 9:43AM FOOD OR BAGGAGE HANDLING RAMPMAN * Moon Maloney MD - 11/07/2015 12:00 AM CDT UROLOGY CRISTIAN BLEDSOE : 1945 HX: [id number] DOS: 11/07/2015 REFERRING PROVIDER: Dr. Berry. HISTORY [...] He is a former smoker, retired from [employer], he is . FAMILY HISTORY: Negative for [...] Moon Maloney M.D./la-29 cc: Casey Berry II, D.O./[facility] Electronically signed by:Moon Maloney M.D. Nov 25 2015 10:34AM FOOD OR BAGGAGE HANDLING RAMPMAN documented in this encounter Plan of Treatment Not on file documented as of this encounter Visit Diagnoses Not on filedocumented in this encounter Care Teams Funds Transfer Clerk Relationship Specialty Start Date End Date Casey Berry II, DO PCP - General 11/22/06 08/17/19 Stephani Aleman MD PCP - General Family Medicine 08/18/19 09/16/20 Bianka Loera CNP [address] [facility] [address] [place] [address] PCP - General Nurse Practitioner Family 09/17/2001/10 [place] [address] [place] [address] PCP - General Electrophysiology 02/23/22 03/09/22 Desiree Patrick MD [address] [facility] [place] [address] 08/09/17 Farrah Nicole APRN,RADIAL DRILL OPERATOR [address] [facility] [place] [address] 08/09/17 Bry Echevarria MD [address] [place] [address] [facility] [place] [address] 08/09/17 Casey Berry II, DO 08/09/17 Shruti Vergara RN RN Registered Nurse 08/27/20 documented as of this encounter Additional Source Comments PLEASE NOTE: Replies to this message will not be received.[facility] and [facility]
--- OUTSIDE RECORDS SUMMARY | 2024-06-16 11:33 | XMS_ITS | Encounter Summary ---
Author Organization [facility] Address [address] [place] [address] Care Team Providers Care Director Business Travel Name Role Phone Jamal CARLISLE DO, Robert William Primary Care Provide r Unavailable Desiree Patrick MD Unavailable Farrah Nicole APRN,ALEX Unavailable Bry Echevarria MD Unavailable Jamal CARLISLE DO, Robert William Unavailable Unav ailable Stephani Aleman MD Primary Care Provider Shruti Vergara RN Unavailable Unavailable Bianka Loera CNP Primary Care Provider [phone] Desiree Patrick MD Primary Care P rovider Encounter Details Date Type Department Care Team (Late st Contact Info) Description 12/01/2006 HIM Spanish Literature Professor Generic Spanish Literature Professor [address] [place] [address] Social History Tobacco Use Types [...] filedocumented in this encounter Care Teams Director Business Travel Relationship Specialty Start Date End Date Casey Berry II, DO PCP - General 11/22/06 08/17/19 Stephani Aleman MD PCP - General Family Medicine 08/18/19 09/16/20 Bianka Loera CNP [address] [place] [address] PCP - General Nurse Practitioner Family 09/17/2001/10 Desiree Patrick MD [address] [place] [address] PCP - General Electrophysiology 02/23/22 03/09/22 Desiree Patrick MD [address] [place] [address] 08/09/17 Farrah Nicole APRN,STATION MECHANIC APPRENTICE [address] [place] [address] 08/09/17 Bry Echevarria MD [address] [place] [phone] 08/09/17 Casey Berry II, DO 08/09/17 Shruti Vergara, RN RN Registered Nurse 08/27/20 documented as of this encounter Additional Source Comments PLEASE NOTE: Replies to this message will not be received.[facility] and [facility]
--- OUTSIDE RECORDS SUMMARY | 2024-06-16 11:33 | XMS_ITS | Encounter Summary ---
Author Organization [employer] Address [address] [place] [address] Care Team Providers Care Chemical Mixer Name Role Phone Jamal CARLISLE DO, Robert William Primary Care Provide r Unavailable Desiree Patrick MD Unavailable Farrah Nicole APRN,COSMETICS COUNTER MANAGER Unavailable Bry Echevarria MD Unavailable Jamal CARLISLE DO, Robert William Unavailable Unav Stephani Diaz MD Primary Care Provider Shruti Vergara RN Unavailable Unavailable Bianka Loera CNP Primary Care Provider Desiree Patrick MD Primary Care P rovider Encounter Details Date Type Department Care Team (Late st Contact Info) Description 10/21/2016 Historical Conversion [facility] Family Medicine [address] [place] [id number] Social History Tobacco Use Types Packs/Day Years [...] on filedocumented in this encounter Care Teams Chemical Mixer Relationship Specialty Start Date End Date Casey Berry II, DO PCP - General 11/22/06 08/17/19 Stephani Aleman MD PCP - General Family Medicine 08/18/19 09/16/20 Bianka Loera CNP [address] [place] [phone] PCP - General Nurse Practitioner Family 09/17/2001/10 Desiree Patrick MD [address] [place] [phone] PCP - General Electrophysiology 02/23/22 03/09/22 Desiree Patrick MD [address] [place] [address] 08/09/17 Farrah Nicole APRN,COSMETICS COUNTER MANAGER [address] [place] [address] 08/09/17 Bry Echevarria MD [address] [place] [phone] 08/09/17 Casey Berry II, DO 08/09/17 Shruti Vergara RN RN Registered Nurse 08/27/20 documented as of this encounter Additional Source Comments PLEASE NOTE: Replies to this message will not be received.[facility] and [facility]
--- OUTSIDE RECORDS SUMMARY | 2024-06-16 11:33 | XMS_ITS | Encounter Summary ---
Author Organization [employer] Address [address] [place] [address] Care Team Providers Care Recreational Facilities Motel Manager Name Role Phone Jamal CARLISLE DO, Robert William Primary Care Provide r Unavailable Desiree Patrick MD Unavailable Farrah Nicole APRN,RETAIL ATTENDANT Unavailable Bry Echevarria MD Unavailable [phone] Jamal CARLISLE DO, Robert William Unavailable Unav Stephani Diaz MD Primary Care Provider Shruti Vergara RN Unavailable Unavailable Bianka Loera CNP Primary Care Provider Desiree Patrick MD Primary Care P rovider Encounter Details Date Type Department Care Team (Late st Contact Info) Description 10/17/2016 Historical Conversion [facility] Family Medicine [address] [place] [phone] Social History Tobacco Use Types Packs/Day Years [...] do you have serious difficulty hearing? Yes-slightly NELSON LAGOON 10/17/2016 Are you blind or do you [...] on filedocumented in this encounter Care Teams Recreational Facilities Motel Manager Relationship Specialty Start Date End Date Casey Berry II, DO PCP - General 11/22/06 08/17/19 Stephani Aleman MD PCP - General Family Medicine 08/18/19 09/16/20 Bianka Loera CNP [address] [place] [phone] PCP - General Nurse Practitioner Family 09/17/2001/10 [place] [address] [place] [phone] PCP - General Electrophysiology 02/23/22 03/09/22 Desiree Patrick MD [address] [place] [address] 08/09/17 Farrah Nicole APRN,[facility] [address] [place] [address] 08/09/17 Bry Echevarria MD [address] [place] [address] [place] [address] 08/09/17 Casey Berry II, DO 08/09/17 Shruti eVrgara RN RN Registered Nurse 08/27/20 documented as of this encounter Additional Source Comments PLEASE NOTE: Replies to this message will not be received.[facility] and [facility]
--- OUTSIDE RECORDS SUMMARY | 2024-06-16 11:33 | XMS_ITS | Encounter Summary ---
Author Organization [facility] [employer] [facility] Address [address] [place] [address] Care Team Providers Care General Contractor Name Role Phone Jamal CARLISLE DO, Robert William Primary Care Provide r Unavailable Desiree Patrick MD Unavailable Farrah Nicole APRN, CNS Unavailable Bry Echevarria MD Unavailable [phone] Jamal CARLISLE DO, Robert William Unavailable Unav Stephani Diaz MD Primary Care Provider [phone] Shruti Vergara RN Unavailable Unavailable Bianka Loera CNP Primary Care Provider [phone] Desiree Patrick MD Primary Care P rovider Encounter Details Date Type Department Care Team (Late st Contact Info) Description 11/15/2006 Clinic Encounter [facility] Dermatology [address] [place] [address] Ganga Anderson MD Social History [...] Rohan Carroll : 1945 E: Ganga Anderson MD[facility] DERMATOLOGY OFFICE VISIT CHART: [id number] P Date of Service: 2006 Doc #: [id number] P Attending Physician: None available SUBJECTIVE: This [...] 1 cc was used locally. Using a [place] blade, the skin biopsy was then performed. [...] up treatment as indicated. [facility] documented in this encounter Plan of Treatment Not on file documented as of this encounter Visit Diagnoses Not on filedocumented in this encounter Care Teams General Contractor Relationship Specialty Start Date End Date Casey Berry II, DO PCP - General 11/22/06 08/17/19 Stephani Aleman MD PCP - General Family Medicine 08/18/19 09/16/20 Bianka Loera CNP [address] [place] [address] 2 [place] [address] PCP - General Nurse Practitioner Family 09/17/20 7/2 12/31 Desiree Patrick MD [address] [place] [address] PCP - General Electrophysiology 02/23/22 03/09/22 Desiree Patrick MD [address] [place] [place] [address] 08/09/17 Farrah Nicole APRN,SERVICE PROVIDER [address] [place] [address] 08/09/17 Bry Echevarria MD [address] [place] [phone] 08/09/17 Casey Berry II, DO 08/09/17 Shruti Vergara RN RN Registered Nurse 08/27/20 documented as of this encounter Additional Source Comments PLEASE NOTE: Replies to this message will not be received.[facility] and [facility]
--- OUTSIDE RECORDS SUMMARY | 2024-06-16 11:33 | XMS_ITS | Encounter Summary ---
Author Organization [employer] Address [address] [place] [address] Care Team Providers Care Machinery Mover Name Role Phone Jamal CARLISLE DO, Robert William Primary Care Provide r Unavailable Desiree Patrick MD Unavailable Farrah Nicole APRN,PONY TRIMMER Unavailable [phone] Bry Echevarria MD Unavailable Jamal CARLISLE DO, Robert William Unavailable Unav Stephani Diaz MD Primary Care Provider Shruti Vergara RN Unavailable Unavailable Bianka Loera CNP Primary Care Provider Desiree Patrick MD Primary Care P rovider Encounter Details Date Type Department Care Team (Late st Contact Info) Description 02/11/2016 Historical Conversion [facility] Family Medicine [address] [place] [address] Moon Maloney MD Social History Tobacco Use [...] on filedocumented in this encounter Care Teams Machinery Mover Relationship Specialty Start Date End Date Casey Berry II, DO PCP - General 11/22/06 08/17/19 Stephani Aleman MD PCP - General Family Medicine 08/18/19 09/16/20 Bianka Loera CNP [address] [place] [phone] PCP - General Nurse Practitioner Family 09/17/2001/10 [place] [address] [place] [phone] PCP - General Electrophysiology 02/23/22 03/09/22 Desiree Patrick MD [address] [place] [facility] [place] [address] 08/09/17 Farrah Nicole APRN,[facility] [address] [place] [place] [address] 08/09/17 Bry Echevarria MD [facility] [place] [address] 08/09/17 Casey Berry II, DO 08/09/17 Shruti Vergara RN RN Registered Nurse 08/27/20 documented as of this encounter Additional Source Comments PLEASE NOTE: Replies to this message will not be received.[facility] and [facility]
--- OUTSIDE RECORDS SUMMARY | 2024-06-16 11:33 | XMS_ITS | Encounter Summary ---
Author Organization [employer] Address [address] [place] [address] Care Team Providers Care Senior Quality Methods Specialist Name Role Phone Jamal CARLISLE DO, Robert William Primary Care Provide r Unavailable Desiree Patrick MD Unavailable Farrah Nicole APRN,ABSTRACT CHECKER Unavailable Bry Echevarria MD Unavailable [phone] Jamal CARLISLE DO, Robert William Unavailable Unav Stephani Diaz MD Primary Care Provider Shruti Vergara RN Unavailable Unavailable Bianka Loera CNP Primary Care Provider Desiree Patrick MD Primary Care P rovider Encounter Details Date Type Department Care Team (Late st Contact Info) Description 08/22/2014 Historical Conversion [facility] Family Medicine [address] [place] [address] Casey Berry II, DO Social History Tobacco [...] AND PHYSICAL CRISTIAN BLEDSOE : 1945 HX: [id number] DOS: 08/22/2014 CHIEF COMPLAINT: Routine physical. HISTORY [...] alcohol. 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 ALLERGIES: PENICILLIN AND SULFA. HEALTH CARE MAINTENANCE: [...] by:Casey Berry D.O. Sep 06 2014 7:40AM CLOTHING PATTERN PREPARER documented in this encounter Plan of Treatment Not on file documented as of this encounter Visit Diagnoses Not on filedocumented in this encounter Care Teams Senior Quality Methods Specialist Relationship Specialty Start Date End Date Casey Berry II, DO PCP - General 11/22/06 08/17/19 Stephani Aleman MD PCP - General Family Medicine 08/18/19 09/16/20 Bianka Loera CNP [address] [place] [address] 2 [place] [address] PCP - General Nurse Practitioner Family 09/17/20 712/31 PatrickDesiree raines MD [address] [facility] [place] [address] PCP - General Electrophysiology 02/23/22 03/09/22 Desiree Patrick MD [address] [facility] [place] [address] 08/09/17 Farrah Nicole APRN,ABSTRACT CHECKER [address] [facility] [place] [address] 08/09/17 Bry Echevarria MD [address] [place] [address] 08/09/17 Casey Berry II, DO 08/09/17 Shruti Vergara RN RN Registered Nurse 08/27/20 documented as of this encounter Additional Source Comments PLEASE NOTE: Replies to this message will not be received.[facility] and [facility]
--- OUTSIDE RECORDS SUMMARY | 2024-06-16 11:33 | XMS_ITS | Encounter Summary ---
Author Organization [employer] Address [address] [place] [address] Care Team Providers Care Slipman Name Role Phone Jamal CARLISLE DO, Robert William Primary Care Provide r Unavailable Desiree Patrick MD Unavailable Farrah Nicole APRN,CONTENT MANAGER Unavailable Bry Echevarria MD Unavailable Jamal CARLISLE DO, Robert William Unavailable Unav Stephani Diaz MD Primary Care Provider Shruti Vergara RN Unavailable Unavailable Bianka Loera CNP Primary Care Provider Desiree Patrick MD Primary Care P rovider Encounter Details Date Type Department Care Team (Late st Contact Info) Description 08/22/[address] [facility] Family Medicine [address] [place] [phone] Casey Berry II, DO Social History Tobacco Use Types Packs/Day Years Used Date Smoking Tobacco: Never Assessed Sex and Gender Information Value Date Recorded Sex Assigned at Not on file Gender Identity Not on file Sexual Orientation Not on file documented as of this encounter Last Filed Vital Signs Vital Sign Reading Time Taken Comments Blood Pressure 145/88 08/22/2014 12:00 AM ASSISTANT PRODUCE MANAGER Pulse - - Temperature - - Respiratory Rate - - Oxygen Saturation - - Inhaled Oxygen Concentration - - Weight 90.7 kg (200 lb) 08/22/2014 12:00 AM ASSISTANT PRODUCE MANAGER Height 185.4 cm (6' 1) 08/22/2014 12:00 AM ASSISTANT PRODUCE MANAGER Body Mass Index 26.39 08/22/2014 12:00 AM ASSISTANT PRODUCE MANAGER documented in this encounter Plan of Treatment Not on file documented as of this encounter Visit Diagnoses Not on filedocumented in this encounter Care Teams Slipman Relationship Specialty Start Date End Date Casey Berry II, DO PCP - General 11/22/06 08/17/19 Stephani Aleman MD PCP - General Family Medicine 08/18/19 09/16/20 Bianka Loera CNP [address] [place] [address] [address] [place] [address] PCP - General Nurse Practitioner Family 09/17/2001/10 Desiree Patrick MD [address] [place] [address] PCP - General Electrophysiology 02/23/22 03/09/22 Desiree Patrick MD [address] [place] [address] 08/09/17 Farrah Nicole, MANUFACTURING ENGINEER ASSEMBLY,CONTENT MANAGER [address] [place] [address] 08/09/17 Bry Echevarria MD [address] [place] [address] [facility] [place] [phone] 08/09/17 Casey Berry II, DO 08/09/17 Shruti Vergara RN RN Registered Nurse 08/27/20 documented as of this encounter Additional Source Comments PLEASE NOTE: Replies to this message will not be received.[facility] and [facility]
--- OUTSIDE RECORDS SUMMARY | 2024-06-16 11:33 | XMS_ITS | Encounter Summary ---
Author Organization [employer] Address [address] [place] [address] Care Team Providers Care Software Development Analyst Name Role Phone Jamal CARLISLE DO, Robert William Primary Care Provide r Unavailable Desiree Patrick MD Unavailable Farrah Nicole APRN,VISUAL AID EXPERT Unavailable Bry Echevarria MD Unavailable Jamal CARLISLE DO, Robert William Unavailable Unav Stephani Diaz MD Primary Care Provider Shruti Vergara RN Unavailable Unavailable Bianka Loera CNP Primary Care Provider Desiree Patrick MD Primary Care P rovider Encounter Details Date Type Department Care Team (Late st Contact Info) Description 01/31/2016 Historical Conversion [facility] [address] [place] [address] Social History Tobacco Use Types Packs/Day Years [...] as of this encounter Procedure Notes * [facility] DON[facility] - 01/14/2017 12:00 AM CDTAssociated Order(s): [...] by:Tiffani Carrero RN Jan 14 2017 11:11AM LAUNDRY OPERATOR WASH ROOM * [facility] MICHELLEPROVIBRANDO - 12/23/2016 12:00 AM CDTAssociated Order(s): [...] by:Tiffani Carrero RN Dec 23 2016 11:30AM LAUNDRY OPERATOR WASH ROOM * [facility], GENERICPROVIDER - 12/02/2016 12:00 AM CDTAssociated [...] by:Tiffani Carrero RN Dec 02 2016 4:10PM LAUNDRY OPERATOR WASH ROOM * [facility], GENERICPROVIDER - 11/17/2016 12:00 AM CDTAssociated [...] has an appointment next week with an prison librarian to discuss a possible ablation. Patient denies any medication changes. INR tested today is therapeutic at 2.7 with the recommended range of 2.0 to 3.0. Patient will continue Coumadin at 5 mg daily with an INR recheck in two weeks. Patient verbalizes understanding. Electronically signed by:Tiffani Carrero RN Nov 17 2016 9:36AM LAUNDRY OPERATOR WASH ROOM * [facility] GENERICPROWTFastDER - 11/10/2016 12:00 AM CDTAssociated Order(s): ANTICOAGULATION [...] by:Tiffani Carrero RN Nov 10 2016 2:41PM LAUNDRY OPERATOR WASH ROOM * [facility] GENERICPROVIDER - 10/29/2016 12:00 AM CDTAssociated Order(s): ANTICOAGULATION Anticoagulation [facility] Name: CRISTIAN BLEDSOE : 1945 DOS: 10/29/2016 [...] by:Tiffani Carrero RN Oct 29 2016 3:44PM LAUNDRY OPERATOR WASH ROOM * [facility] - 10/23/2016 12:00 AM CDTAssociated Order(s): ANTICOAGULATION [facility] Name: CRISTIAN BLEDSOE : 1945 DOS: 10/23/2016 This is a patient of Dr. Berry. He is taking anticoagulation for a diagnosis of atrial fibrillation.He is scheduled for a prostate biopsy today at the [facility] with Dr. Maloney. Patient had his INR checked in the [facility] lab prior to his procedure today. [...] by:Tiffani Carrero RN Oct 26 2016 9:49AM LAUNDRY OPERATOR WASH ROOM * [facility]HELLE AUSTINPROLUBNA - 10/13/2016 12:00 AM [...] will have his INR checked at the [facility] prior to his biopsy which is [...] by:Tiffani Carrero RN Oct 13 2016 12:13PM LAUNDRY OPERATOR WASH ROOM AMENDMENTS: 1. Patient states that he was in the [facility] ER on October 08 with a rapid [...] by:Tiffani Carrero RN Oct 13 2016 12:36PM LAUNDRY OPERATOR WASH ROOM * [facility], GENERICPROLUBNA - 09/15/2016 12:00 AM CSTAssociated Order(s): ANTICOAGULATION Anticoagulation [facility] Name: CRISTIAN BLEDSOE : 1945 DOS: 09/15/2016 [...] by:Tiffani Carrero RN Sep 15 2016 2:04PM LAUNDRY OPERATOR WASH ROOM * [facility] GENERICPROVIDER - 08/18/2016 12:00 AM CSTAssociated Order(s): ANTICOAGULATION Anticoagulation [facility] Name: CRISTIAN BLEDSOE : 1945 DOS: 08/18/2016 [...] by:Tiffani Carrero RN Aug 18 2016 2:21PM LAUNDRY OPERATOR WASH ROOM * [facility] GENERICPROVIBRANDO - 07/28/2016 12:00 AM CSTAssociated Order(s): ANTICOAGULATION Anticoagulation [facility] Name: CRISTIAN BLEDSOE : 1945 DOS: 07/28/2016 [...] by:Tiffani Carrero RN Jul 28 2016 11:06AM LAUNDRY OPERATOR WASH ROOM * [facility], GENERICPROVIDER - 07/14/2016 12:00 AM CSTAssociated Order(s): ANTICOAGULATION Anticoagulation [facility] Name: CRISTIAN BLEDSOE : 1945 DOS: 07/14/2016 [...] by:Tiffani Carrero RN Jul 14 2016 11:21AM LAUNDRY OPERATOR WASH ROOM * [facility], GENERICPROVIBRANDO - 06/30/2016 12:00 AM CSTAssociated Order(s): ANTICOAGULATION Anticoagulation [facility] Name: CRISTIAN BLEDSOE : 1945 DOS: 06/30/2016 [...] by:Tiffani Carrero RN Jun 30 2016 9:24AM LAUNDRY OPERATOR WASH ROOM * [facility] - 05/20/2016 12:00 AM CSTAssociated Order(s): ANTICOAGULATION Anticoagulation [facility] Name: CRISTIAN BLEDSOE : 1945 DOS: 05/20/2016 [...] by:Tiffani Carrero RN May 20 2016 3:59PM LAUNDRY OPERATOR WASH ROOM * [facility] MICHELLEPROGINABRANDO - 04/15/2016 12:00 AM [...] by:Tiffani Carrero RN Apr 15 2016 5:55PM LAUNDRY OPERATOR WASH ROOM * [facility] MICHELLEPROVIBRANDO - 03/18/2016 12:00 [...] by:Tiffani Carrero RN Mar 18 2016 9:42AM LAUNDRY OPERATOR WASH ROOM * [facility] AUSTINPROLUBNA - 03/09/2016 12:00 AM [...] Tiffani Carrero RN; Mar 09 2016 9:59AM LAUNDRY OPERATOR WASH ROOM * [facility] MICHELLEPROVIBRANDO - 02/27/2016 12:00 [...] by:Tiffani Carrero RN Feb 27 2016 12:04PM LAUNDRY OPERATOR WASH ROOM * [facility] GENERICPROVIBRANDO - 02/12/2016 12:00 AM CDTAssociated [...] by:Tiffani Carrero RN Feb 12 2016 9:02AM LAUNDRY OPERATOR WASH ROOM * [facility] GENERICPROVIBRANDO - 02/04/2016 12:00 AM CDTAssociated Order(s): ANTICOAGULATION Anticoagulation [facility] Name: CRISTIAN BLEDSOE : 1945 DOS: 02/04/2016 [...] by:Tiffani Carrero RN Feb 04 2016 9:45AM LAUNDRY OPERATOR WASH ROOM * [facility], GENERICPROVIDER - 01/31/2016 12:00 AM [...] by:Carlene Hargrove RN Jan 31 2016 2:45PM LAUNDRY OPERATOR WASH ROOM documented in this encounter Plan of Treatment [...] * ANTICOAGULATION (01/14/2017) Narrative Procedure Note [facility], GENERICPROVIDER - 01/14/2017 12:00 AM [...] by:Tiffani Carrero RN Jan 14 2017 11:11AM LAUNDRY OPERATOR WASH ROOM [facility] OTHER * ANTICOAGULATION (12/23/2016) Narrative Procedure Note [facility] - 12/23/2016 12:00 AM CDT Anticoagulation [facility] Name: CRISTIAN BLEDSOE : 1945 DOS: 12/23/2016 This is a patient of Dr. Berry. He is here today for an anticoagulationassessment and INR check for a diagnosis of atrial fibrillation. Patientstates that he has been feeling well. He reports that he met with at the [facility] and will begin radiation on January [...] by:Tiffani Carrero RN Dec 23 2016 11:30AM LAUNDRY OPERATOR WASH ROOM [facility] OTHER * ANTICOAGULATION (12/02/2016) Narrative Procedure Note [facility] - 12/02/2016 12:00 AM CDT Anticoagulation [facility] Name: CRISTIAN BLEDSOE : 1945 DOS: 12/02/2016 [...] by:Tiffani Carrero RN Dec 02 2016 4:10PM LAUNDRY OPERATOR WASH ROOM [facility] OTHER * ANTICOAGULATION (11/17/2016) Narrative Procedure Note [facility] - 11/17/2016 12:00 AM CDT Anticoagulation [facility] Name: CRISTIAN BLEDSOE : 1945 DOS: 11/17/2016 [...] by:Tiffani Carrero RN Nov 17 2016 9:36AM LAUNDRY OPERATOR WASH ROOM [facility] * [facility]TICO[facility]ULATION (11/10/2016) Narrative [facility] - 11/10/2016 12:00 AM CDT Anticoagulation [facility] Name: CRISTIAN BLEDSOE : 1945 DOS: 11/10/2016 [...] by:Tiffani Carrero RN Nov 10 2016 2:41PM LAUNDRY OPERATOR WASH ROOM [facility] OTHER * ANTICOAGULATION (10/29/2016) Narrative Procedure Note [facility] - 10/29/2016 12:00 AM CDT Anticoagulation [facility] Name: CRISTIAN BLEDSOE : 1945 DOS: 10/29/2016 [...] by:Tiffani Carrero RN Oct 29 2016 3:44PM LAUNDRY OPERATOR WASH ROOM [facility] OTHER * ANTICOAGULATION (10/23/2016) Narrative Procedure Note [facility] - 10/23/2016 12:00 AM CDT Anticoagulation [facility] Name: CRISTIAN BLEDSOE : 1945 DOS: 10/23/2016 This is a patient of Dr. Berry. He is taking anticoagulation for adiagnosis of atrial fibrillation. He is scheduled for a prostate biopsytoday at the [facility] with Dr. Maloney. Patient had his INR checkedin the [facility] lab prior to his procedure today. [...] by:Tiffani Carrero RN Oct 26 2016 9:49AM LAUNDRY OPERATOR WASH ROOM [facility] OTHER * ANTICOAGULATION (10/13/2016) Narrative Procedure Note [facility] - 10/13/2016 12:00 [...] [facility] which [facility] [...] by:Tiffani Carrero RN Oct 13 2016 12:13PM LAUNDRY OPERATOR WASH ROOM AMENDMENTS: 1. Patient states that he was in the [facility] ER on October 08 with arapid heart [...] by:Tiffani Carrero RN Oct 13 2016 12:36PM LAUNDRY OPERATOR WASH ROOM [facility] OTHER * ANTICOAGULATION (09/15/2016) Narrative Procedure Note [facility] - 09/15/2016 12:00 AM CST Anticoagulation [...] by:Tiffani Carrero RN Sep 15 2016 2:04PM LAUNDRY OPERATOR WASH ROOM [facility] OTHER * ANTICOAGULATION (08/18/2016) Narrative Procedure Note [facility] - 08/18/2016 12:00 AM CST Anticoagulation [facility] Name: CRISTIAN BLEDSOE : 1945 DOS: 08/18/2016 [...] by:Tiffani Carrero RN Aug 18 2016 2:21PM LAUNDRY OPERATOR WASH ROOM [facility] OTHER * ANTICOAGULATION (07/28/2016) Narrative Procedure Note [facility] - 07/28/2016 12:00 AM CST Anticoagulation [facility] Name: CRISTIAN BLEDSOE : 1945 DOS: 07/28/2016 [...] by:Tiffani Carrero RN Jul 28 2016 11:06AM LAUNDRY OPERATOR WASH ROOM [facility] OTHER * ANTICOAGULATION (07/14/2016) Narrative Procedure Note [facility] - 07/14/2016 12:00 AM CST Anticoagulation [facility] Name: CRISTIAN BLEDSOE : 1945 DOS: 07/14/2016 [...] by:Tiffani Carrero RN Jul 14 2016 11:21AM LAUNDRY OPERATOR WASH ROOM [facility] OTHER * ANTICOAGULATION (06/30/2016) Narrative Procedure Note [facility] - 06/30/2016 12:00 AM CST Anticoagulation [facility] Name: CRISTIAN BLEDSOE : 1945 DOS: 06/30/2016 [...] by:Tiffani Carrero RN Jun 30 2016 9:24AM LAUNDRY OPERATOR WASH ROOM [facility] OTHER * ANTICOAGULATION (05/20/2016) Narrative Procedure Note [facility] - 05/20/2016 12:00 AM CST Anticoagulation [facility] Name: CRISTIAN BLEDSOE : 1945 DOS: 05/20/2016 [...] by:Tiffani Carrero RN May 20 2016 3:59PM LAUNDRY OPERATOR WASH ROOM [facility] OTHER * ANTICOAGULATION (04/15/2016) Narrative Procedure Note [facility] - 04/15/2016 12:00 AM CDT Anticoagulation [facility] Name: CRISTIAN BLEDSOE : 1945 DOS: 04/15/2016 [...] by:Tiffani Carrero RN Apr 15 2016 5:55PM LAUNDRY OPERATOR WASH ROOM [facility] OTHER * ANTICOAGULATION (03/18/2016) Narrative Procedure Note [facility] - 03/18/2016 12:00 AM CDT Anticoagulation [facility] Name: CRISTIAN BLEDSOE : 1945 DOS: 03/18/2016 [...] by:Tiffani Carrero RN Mar 18 2016 9:42AM LAUNDRY OPERATOR WASH ROOM [facility] OTHER * ANTICOAGULATION (03/09/2016) Narrative Procedure Note [facility] - 03/09/2016 12:00 AM CDT ACC [...] OTHER * ANTICOAGULATION (02/27/2016) Narrative Procedure Note [facility] - 02/27/2016 12:00 AM CDT Anticoagulation [facility] Name: CRISTIAN BLEDSOE : 1945 DOS: 02/27/2016 [...] by:Tiffani Carrero RN Feb 27 2016 12:04PM LAUNDRY OPERATOR WASH ROOM [facility] OTHER * ANTICOAGULATION (02/12/2016) Narrative Procedure Note [facility] - 02/12/2016 12:00 AM CDT Anticoagulation [facility] Name: CRISTIAN BLEDSOE : 1945 DOS: 02/12/2016 [...] by:Tiffani Carrero RN Feb 12 2016 9:02AM LAUNDRY OPERATOR WASH ROOM [facility] OTHER * ANTICOAGULATION (02/04/2016) Narrative Procedure Note [facility] - 02/04/2016 12:00 AM CDT Anticoagulation [facility] Name: CRISTIAN BLEDSOE : 1945 DOS: 02/04/2016 [...] by:Tiffani Carrero RN Feb 04 2016 9:45AM LAUNDRY OPERATOR WASH ROOM [facility] OTHER * ANTICOAGULATION (01/31/2016) Narrative Procedure Note [facility] - 01/31/2016 12:00 AM CDT Name: [...] by:Carlene Hargrove RN Jan 31 2016 2:45PM LAUNDRY OPERATOR WASH ROOM [facility] OTHER documented in this encounter Visit Diagnoses Not on filedocumented in this encounter Care Teams Software Development Analyst Relationship Specialty Start Date End Date Casey Berry II, DO PCP - General 11/22/06 08/17/19 Stephani Aleman MD PCP - General Family Medicine 08/18/19 09/16/20 Bianka Loera CNP [address] [place] [id number] PCP - General Nurse Practitioner Family 09/17/20 7/2 12/31 Desiree Patrick MD [address] [place] [address] PCP - General Electrophysiology 02/23/22 03/09/22 Desiree Patrick MD [address] [place] [address] 08/09/17 Farrah Nicole APRN,VISUAL AID EXPERT [address] [place] [address] 08/09/17 Bry Echevarria MD [address] [place] [address] [place] [address] 08/09/17 Casey Berry II, DO 08/09/17 Shruti Vergara, RN RN Registered Nurse 08/27/20 documented as of this encounter Additional Source Comments PLEASE NOTE: Replies to this message will not be received.[facility]
--- OUTSIDE RECORDS SUMMARY | 2024-06-16 11:33 | XMS_ITS | Encounter Summary ---
Author Organization [facility] [employer] [facility] Address [address] [place] [address] Care Team Providers Care Inspection Clerk Name Role Phone Jamal CARLISLE DO, Robert William Primary Care Provide r Unavailable Desiree Patrick MD Unavailable Farrah Nicole APRN,PROCEDURES TECH Unavailable Bry Echevarria MD Unavailable Jamal CARLISLE DO, Robert William Unavailable Unav Stephani Diaz MD Primary Care Provider Shruti Vergara RN Unavailable Unavailable Bianka Loera CNP Primary Care Provider [phone] Desiree Patrick MD Primary Care P rovider Encounter Details Date Type Department Care Team (Late st Contact Info) Description [address] [address] Social History Tobacco Use Types Packs/Day Years [...] on filedocumented in this encounter Care Teams Inspection Clerk Relationship Specialty Start Date End Date Casey Berry II, DO PCP - General 11/22/06 08/17/19 Stephani Aleman MD PCP - General Family Medicine 08/18/19 09/16/20 Bianka Loera ORAL COMMUNICATION INSTRUCTOR [address] [place] [address] [address] [place] [id number] PCP - General Nurse Practitioner Family 09/17/20 712/31 Desiree Patrick MD [address] [place] [address] PCP - General Electrophysiology 02/23/22 03/09/22 Desiree Patrick MD [address] [place] [place] [address] 08/09/17 Farrah Nicole APRN,PROCEDURES TECH [address] [place] [place] [address] 08/09/17 Bry Echevarria MD [address] [place] [id number] 08/09/17 Casey Berry II, DO 08/09/17 Shruti Vergara RN RN Registered Nurse 08/27/20 documented as of this encounter Additional Source Comments PLEASE NOTE: Replies to this message will not be received.[facility]
--- OUTSIDE RECORDS SUMMARY | 2024-06-16 11:34 | XMS_ITS | Continuity of Care Document ---
Author Organization [facility] Address [address] [place] [address] Phone Care Team Providers Care Head Doffer Name Role Phone Triston TRENT, PhD, Fabio Unavailable Unavai lable Allergies, Adverse Reactions, Alerts Substance Reaction Status Criticality Sulfa (Sulfonamide Antibiotics) Active No Information Penicillins Hives, Dermatitis Active No Informa tion Procedures Procedure Date Office/Outpatient Visit,[facility] Advance Directives Directive Yes / No Effective Date File Name No Information Encounters Encounter Description Practice Location Reason(s) For Visit Diagnoses Date Provider Providers Copied on Encounter [facility], [address], [place], [place], [id number], [place] tel:[phone] No Information Triston Mccarthy. [facility], [address] [place] [address] [address], [place], [address], [place]. tel:[phone] Office/Outpat ient Visit,[facility], [address], [place], [place], [id number], [place] tel:[phone] [facility] Specialty [facility] L4 fracture, initial encounter for closed fracture Kev Pfeiffer. [facility], [address] [place] [address] 600, [place], [address], [place]. tel:[phone] Referring Provider: Marli Sanders, [address], [address]. tel:[phone] Family History Family Member Type Diagnosis Age At Onset Father Problem (finding) Cancer, unknown type Payers Payer name Insurance type Covered constitution party ID Authordavida santana(s) [facility] [id number] Social History Type Description Quantity Date Captured [...]
--- OUTSIDE RECORDS SUMMARY | 2024-06-16 11:34 | XMS_ITS | Continuity of Care Document ---
Author Organization [facility] Address [address] [place] [address] Phone Care Team Providers Care Pharmacy Technology Instructor Name Role Phone Timoteo Acosta D.O. Unavailable [...] Diagnoses Date Provider Providers Copied on Encounter [facility], [address] [place] [address], [id number], tel:[phone] [facility] No Information Dave Mahmood. [address] [place] [address], [id number], [place]. tel:[phone] [facility], [address] [place] [address], [id number], [place] tel:[phone] [facility] No Information Dave Mahmood. [address] [place] [address], [id number], [place]. tel:[phone] Referring Provider: Cherelle Borja [facility] [address], [place], [address]. tel:[phone] [facility], [address] [place] [address], [id number], [place] tel:[phone] [facility] No Information Dave Mahmood. [address] [place] [address], [id number], [place]. tel:[phone] Referring Provider: Cherelle Borja [facility] [address], [place], [address]. tel:[phone] OFFICE/OUTPATI ENT VISIT, EST [facility], [address] [place] [address], [id number], [place] tel:[phone] [facility] decreased vision (chief complaint) PCO-OSDrusen (degenerative ) of macula, left eye Dave Mahmood. [address] [place] [address], [id number], [place]. tel:[phone] Referring Provider: Cherelle Borja [facility] [address], [place], [address]. tel:[phone] [facility], [address] [place] [address], [id number], tel:[phone] [facility] No Information Dave Mahmood. [address] [place] [address], [id number], . tel:[phone] Referring Provider: Timoteo Zhao, [address] [place] [address], [id number]. tel:[phone] [facility], [address] [place] [address], [id number], tel:[phone] [facility] No Information Dave Mahmood. [address] [place] [address], [id number], [place]. tel:[phone] Referring Provider: Timoteo Zhao, [address] [place] [address], [address] [place] [address]. tel:[phone] OFFICE/OUTPATI ENT VISIT, [facility], [address] [place] [address], [address] [place] [address], tel:[phone] [facility] blurry vision (chief complaint) Cat-combined- ODCat-Pseudop hakia Dave Mahmood. [address] [place] [address], [id number], [place]. tel:[phone] Referring Provider: Timoteo Zhao, [address] [place] [address], [address] [place] [address]. tel:[phone] [facility], [address] [place] [address], [id number], [place] tel:[phone] [facility] No Information Dave Mahmood. [address] [place] [address], [id number], [place]. tel:[phone] Referring Provider: Timoteo Zhao, [address] [place] [address], [id number]. tel:[phone] [facility], [address] [place] [address], [id number], tel:[phone] [facility] No Information Dave Mahmood. [address] [place] [address], [id number], [place]. tel:[phone] Referring Provider: Timoteo Zhao, [address] [place] [address], [id number]. tel:[phone] [facility], [address] [place] [address], [id number], tel:[phone] [facility] No Information Dave Mahmood. [address] [place] [address], [id number], [place]. tel:[phone] Referring Provider: Timoteo Zhao, [address] [place] [address], [id number]. tel:[phone] [facility], [address] [place] [address], [id number], tel:[phone] [facility] No Information Dave Mahmood. [address] [place] [address], [id number], [place]. tel:[phone] Referring Provider: [facility] [address], [place], [address]. tel:[phone] OFFICE/OUTPATI ENT VISIT, [facility], [address] [place] [address], [id number], [place] tel:[phone] [facility] 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 [address] [place] [address], [id number], [place]. tel:[phone] Referring Provider: Cherelle Borja [facility] [address], [place], [address]. tel:[phone] [facility], [address] [place] [address], [id number], [place] tel:[phone] [facility] No Information Dave Mahmood. [address] [place], [place], [id number], . tel:[phone] Referring Provider: Timoteo Zhao, [address] [place], [address]. tel:[phone] Family History Family Member Type Diagnosis Age At Onset No Information Payers Payer name Insurance type Covered libertarian ID Viet dillon(s) [facility] [id number] Social History Type Description Quantity Date Captured [...]
--- OUTSIDE RECORDS SUMMARY | 2024-06-16 11:34 | XMS_ITS ---
Author Organization [facility] Address [address] [place] [address] Care Team Providers Care Conveyor Belt Operator Name Role Phone Unavailable Unavailable Unavailable Surgery Details Not on file Complications Check Surgery Details section. Procedure Estimated Blood Loss Check Surgery Details section. Procedure Findings Check Surgery Details section. Procedure Specimens Taken Check Surgery Details section.
--- OUTSIDE RECORDS SUMMARY | 2024-06-16 11:34 | XMS_ITS | Encounter Summary ---
Author Organization [facility] Address [address] [place] [address] Care Team Providers Care County Manager Name Role Phone Unavailable Primary Care Provider Unavailabl e Reason for Referral * Outpatient (Routine) - Authorized Specialty Diagnoses / Procedures Referred By Malinda wan Referred To Contact Neurology Vic Mae M.D. [address] [place] [address] Phone: tel: fax: [facility] Region Referral ID Status Reason Start Date Expiration Date V isits Requested Visits Authorized [id number] Authorized 06/07/2024 12/07/2025 1 1 CELL TESTER Reason for Visit * Reason Comments Parkinson's Disease * Appointment Request (Routine) - Pending Review Specialty Diagnoses / Procedures Referred By Malinda t Referred To Contact Neurology Referral ID Status Reason Start Date Expiration Date V isits Requested Visits Authorized [id number] Pending Review 05/08/2024 05/08/2025 1 1 Encounter Details Date Type Department Care Team (Latest Contact Info) Description 06/07/2024 1:00 PM DRY CELL TESTER Office Visit Department of Neurology in [place], [place] [address], [place] [address] Vic Mae M.D. 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) Social History Tobacco Use Types Packs/Day Years Used Date Smoking Tobacco: Former Cigarettes Q uit: 1978 Smokeless Tobacco: Never Tobacco Cessation:Counseling Given: Not Answered Dental Answer Date Recorded Dental: Regular Dentist Unknown 01/28/20 Sex and Gender Information Value Date Recorded Sex Assigned at Not on file Legal Sex Male 11:39 AM CDT Gender Identity Not on file Sexual Orientation Not on file documented as of this encounter Last Filed Vital Signs Vital Sign Reading Time Taken Comments Blood Pressure 97/68 06/07/2024 12:41 PM DRY CELL TESTER Pulse 72 06/07/2024 12:41 PM DRY CELL TESTER Temperature - - Respiratory Rate - - Oxygen Saturation - - Inhaled Oxygen Concentration - - Weight 78.9 kg (174 lb) 06/07/2024 12:41 PM DRY CELL TESTER Height - - Body Mass Index 23.31 04/15/2023 2:57 PM CDT documented in this encounter Progress Notes * Vic Mae M.D. - 06/07/2024 1:00 PM CST SUBJECTIVE CHIEF COMPLAINT / REASON FOR VISIT Rohan Carroll is a 78 y.o. male who presents for evaluation of Parkinson's Disease. HISTORY OF PRESENT ILLNESS Rohan Carroll is a 78-year-old male with a history of Parkinson's disease who returns in follow-up. Please recall he was last seen by myself in the summer of 2023. At that visit we recommended that since he was able to separate his doses better from food that we could reduce his dose slightly to 2-1/2 tablets 3 times a day to see if this led to improvement in some of the movements he was having. In the interim he reduced his dose to 2.5 tablets 3 times a day around 60 06:30, 11 11:30 and 17:00.With this they have noticed an improvement in his facial movements although not complete cessation.He continues to struggle with walking and had a fall recently and so his has largely used wheelchair when he is out and about outside of the house to avoid any additional falls. Continues to usea walker around his house however. REVIEW OF SYSTEMS REVIEW OF SYSTEMS OBJECTIVE PHYSICAL EXAM General: Male in his 70s, alert, attentive, no acute distress Vitals: BP 97/68, HR 72 Neuro: Alert and interactive. There were intermittent dyskinesias of the orbicularis france muscle today. He has +2 rigidity in the left upper extremity and +1 in the right upper extremity today. Finger tapping AMR's are mildly reduced. Gait deferred as he is in a wheelchair today. For details of the neurologic examination, please see the neurologic examination form. 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 Carroll and his . 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 I discussed we could pursue a PET scan but I do not think it would necessarily change our management and he was in agreement with holding off on that at this time. Overall, his movements of his mouth have reduced in severity with reduction in dose of his carbidopa-levodopa, and so I think we can continue at 2-1/2 tablets 3 times a day. Fortunately, he has put on some weight since our last visit after stopping donepezil which is reassuring. Did discuss that some of his bladder symptoms are likely related to his prostate cancer and treatment with radiation. He could discuss with his primary care physician a medication such as oxybutynin or other bladder medication to help with his symptoms overnight to limit how much he is going to thebathroom, and they will discuss that with him. Otherwise, plan to see them back in 1 year's time or sooner if he is having more difficulties. 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
--- OUTSIDE RECORDS SUMMARY | 2024-06-16 11:34 | XMS_ITS | Data Portability ---
Author Organization [facility] Address [address] [place] [address] Care Team Providers Care Watch Band Assembler Name Role Phone [facility] Primary Care Provider Assessment No assessment [...] By Organization Details Last Modified Time 03/17/2022 [id number] will plan follow up in December next year with PSA. [email or web address] Not available 03/17/2022 14:11:53 12/10/2022 [id number] doing well with undetectable PSA, plan follow up 1 year with PSA Not available 12/10/2022 11:43:14 12/14/2023 [id number] rtc 1 year with PSA. [email or web address] Not available 12/14/2023 11:08:24 Reason for Referral None Reported. Results Created Date Observation Date Name Description Value Unit Range Abnormal Flag Note LastModifiedBy Organization Detail LastModifiedTime Result Notes None recorded. Medical Equipment None Reported. Allergies Allergen ID Allergen Name Allergen Category Reaction Reaction Severity Criticality Documentation Date Start Date Code Code System Note Provider Name and Address Organization Details Recorded Time 733406 Medicinal product containin g penicilli n and acting as antibacte rial agent (product) medicatio n Not available Not available Not available 12/10/2022 [address] [facility] 11:31:20 680281 Substance with sulfonami de structure and antibacte rial mechanism of action (substanc e) medicatio n Not available Not available Not available 12/10/[address] [facility] 3 11:31:26 Medications Name Sig Start [...] Updated DateTime 03/17/2022 185.42 cm 26 kg/m2 [address]357.[address] [facility] 03/17/2022 13:52:15 Date Recorded Body height Body mass index (BMI) Body weight Provider Name and Address Organization Details Last Updated DateTime 12/10/2022 185.42 cm 26 kg/m2 34351.7 g Dona Hull [facility] O[facility] 12/10/2022 11:31:06 Date Recorded Body height Body mass index (BMI) Body weight Provider Name and Address Organization Details Last Updated DateTime 12/14/2023 185.42 cm 26 kg/m2 48030.7 g Amandeep Knox MD [address], [place], [address] 12/14/2023 10:57:12 Social History Question Answer Notes LastModified by Organizat ion Details LastModified Time Tobacco Smoking Status Former Smoker Winston joaquin, [facility] 03/17/2022 13:52:26 What Is Your Level Of Alcohol Consumption? Occasional [email or web address] Information not available 12/10/2022 How Many Times Per Week Do You Consume Alcohol? 1-2 Times Per Week [email or web address] Information not available 12/10/2022 What Is Your Level Of Caffeine Consumption? Occasional [email or web address] Information not available 12/10/2022 When Did You Quit Smoking? 16+yearssincel astcigusette [email or web address] Information not available 12/10/2022 What Was The Date Of Your Most Recent Tobacco Screening? 12/14/2023 [email or web address] Information not available 12/14/2023 Have You Ever Been Counseled For Unhealthy Alcohol Use? No Information not available 12/14/2023 Do You Use Any Illicit Or Recreational Drugs? No [email or web address] Information not available 12/10/2022 Has Tobacco Cessation Counseling Been Provided? No [email or web address] Information not available 12/10/2022 Do You Or Have You Ever Used Any Other Forms Of Tobacco Or Nicotine? No [email or web address] Information not available 12/10/2022 How Many Days In The Past Year Have You Consumed 5 Or More Drinks? 0 [email or web address] Information no t available 12/14/2023 Sex: Unknown Functional Status None recorded. Mental Status None recorded. Family History Relationship Description Onset Age of this Age Resolved Age Notes LastModified by Organization Details LastModified Time Father Family history of malignant neoplasm of oral cavity [email or web address] Not available 12/2021 13:53:34 Medical History Condition Response Other N High [...] mL dose 08/15/2020 completed Amandeep Knox MD [address] [place] [address],[address], [address], [facility] 12/14/2023 10:57:18 COVID-19, mRNA, LNP-S, PF, 30 mcg/0.3 mL dose 09/05/2020 completed Amandeep Knox MD [address] [place] [address],[address], [place], [address], [facility] 12/14/2023 10:57:18 COVID-19, mRNA, LNP-S, PF, 30 mcg/0.3 mL dose 04/29/2021 completed Amandeep Knox MD [address] [place] [address],[address] [place] [address], [address], [facility] 12/14/2023 10:57:19 COVID-19, mRNA, LNP-S, PF, 30 mcg/0.3 mL dose, enrique-sucrose 11/04/2021 completed Amandeep Knox MD [address] [place] [address],[address], [address], [facility] 12/14/2023 10:57:19 pneumococcal polysaccharide PPV23 01/28/2010 completed Amandeep Knox MD [address] [place] [address],[address], [address], [facility] 12/14/2023 10:57:19 Tdap 08/21/2013 completed Amandeep Knox MD [address] [place] [address],[address], [address], [facility] 12/14/2023 10:57:19 Novel [id number], all formulations 07/23/2009 completed Amandeep Knox MD [address] [place] [address],[facility] [address], [place], [address], [facility] 12/14/2023 10:57:19 Pneumococcal conjugate PCV 13 08/28/2015 completed Amandeep Knox MD [address] [place] [address],[address], [address], [facility] 12/14/2023 10:57:19 Pneumococcal conjugate PCV 13 08/28/2016 completed Amandeep Knox MD [address] [place] [address],[facility] [address] [place], [address], [facility] 12/14/2023 10:57:19 zoster live 01/28/2010 completed Amandeep Knox MD [address] [place] [address],[address], [address], [facility] 12/14/2023 10:57:19 Influenza, high-dose, trivalent, PF 03/30/2017 completed Amandeep Knox MD [address] [place] [address],[facility] [address], [address], [facility] 12/14/2023 10:57:19 Influenza, high-dose, trivalent, PF 04/15/2016 completed Amandeep Knox MD [address] [place] [address],[address], [address], [facility] 12/14/2023 10:57:19 Influenza, high-dose, trivalent, PF 04/26/2018 completed Amandeep Knox MD [address] [place] [address],[address] [place] [address], [address], [facility] 12/14/2023 10:57:19 Influenza, high-dose, trivalent, PF 05/10/2019 completed Amandeep Knox MD [address] [place] [address],[address], [address], [facility] 12/14/2023 10:57:19 Influenza, high-dose, trivalent, PF 05/28/2014 completed Amandeep Knox MD [address] [place] [address],[address], [address], [facility] 12/14/2023 10:57:19 Influenza, split virus, trivalent, preservative 05/05/2010 completed Amandeep Knox MD [address] [place] [address],[address], [address], [facility] 12/14/2023 10:57:19 Influenza, split virus, trivalent, preservative 05/09/2007 completed Amandeep Knox MD [address] [place] [address],[address], [address], [facility] 12/14/2023 10:57:19 Influenza, split virus, trivalent, preservative 05/14/2006 completed Amandeep Knox MD [address] [place] [address],[address], [address], [facility] 12/14/2023 10:57:19 Influenza, split virus, trivalent, preservative 06/03/2005 completed Amandeep Knox MD [address] [place] [address],[address] [place] [address], [address], [facility] 12/14/2023 10:57:19 Influenza, split virus, trivalent, preservative 06/15/2012 completed Amandeep Knox MD [address] [place] [address],[address], [address], [facility] 12/14/2023 10:57:19 Influenza, split virus, trivalent, preservative 06/19/2013 completed Amandeep Knox MD [address] [place] [address],[address] [place] [address], [address], [facility] 12/14/2023 10:57:19 Influenza, split virus, trivalent, preservative 06/30/2008 completed Amandeep Knox MD [address] [place] [address],[address], [address], [facility] 12/14/2023 10:57:19 Influenza, split virus, trivalent, PF 07/23/2009 completed Amandeep Knox MD [address] [place] [address],[address], [address], [facility] 12/14/2023 10:57:19 Influenza, split virus, trivalent, PF 03/26/2011 completed Amandeep Knox MD [address] [place] [address],[address], [address], [facility] 12/14/2023 10:57:19 Influenza, split virus, quadrivalent, PF 03/12/2020 completed Amandeep Knox MD [address] [place] [address],[address] [place] [address], [address], [facility] 12/14/2023 10:57:19 Influenza, split virus, quadrivalent, PF 03/25/2021 completed Amandeep Knox MD [address], [place], [address], [facility] 12/14/2023 10:57:19 Influenza, split virus, quadrivalent, PF 07/02/2015 completed Amandeep Knox MD [address], [place], [address], [facility] 12/14/2023 10:57:19 Past Encounters Encounter ID Performer Location Encounter Start Date Encounter Closed Date Diagnosis/Indication Diagnosis SNOMED-CT Code Diagnosis ICD10 Code [id number] Amandeep Knox MD [address] [address] 03/17/2022 13:41:31 03/19/2022 16:06:51 Malignant tumor of prostate 477564613 C61 [id number] Amandeep Knox MD [address] [address] 12/10/2022 11:09:53 12/18/2022 17:00:28 Malignant tumor of prostate 324768866 C61 [id number] Amandeep Knox MD [address] [address] 12/14/2023 10:50:05 12/15/2023 15:17:05 Carcinoma of prostate 205640465 C61 Health Concerns Section Related Observation LastModified by Organization Detai ls LastModified Time None Recorded Concern Status LastModified by Organization Details LastModified Time None Recorded Advance Directives Directive None Recorded Payers Encounter Date Sequence Insurance Name Policy Number Policy Garcia Covered Member ID Garcia Member ID Guarantor Name 03/17/2022 1 [place] [employer] [place] [employer] 106 Rohan Carroll [id number] Rohan Carroll 12/10/2022 1 [place] 106 Rohan Carroll [id number] Rohan Carroll 12/14/2023 1 [place] 106 Rohan Carroll [id number] Rohan Carroll Notes Date Note Type Note Provider Name and Address Organization Details Recorded Time 03/17/2022 text/html hx CaP. had lupr on and XRT done in 2017 in [place]. previous patient of Allyssa Maloney. had an episode of XRT cystitis maybe about a year ago, none since. had cysto then. PSA been low 0.02-0.03. last checked 12/2021. Amandeep Knox MD [address] [place] [address],[address], [address], [facility] 03/17/2022 14:15:54 12/10/2022 text/html follow up CaP, h ad lupron and XRT in 2017. PSA last month still undetectable at his local lab. voiding OK, no heme/dysuria. Amandeep Knox MD [address] [place] [address],[address], [place], [address], [facility] 12/10/2022 11:44:03 12/14/2023 text/html PSA 11/19/23: <0.06ng/mL follow up for prostate cancer. hx CaP tx with XRT and 8 month lupron in 2017. voiding OK, had some hematuria after a deep tissue massage a while back. Amandeep Knox MD [address] [place] [address],[address], [place], [address], [facility] 12/14/2023 11:09:20
--- OUTSIDE RECORDS SUMMARY | 2024-06-16 11:34 | XMS_ITS | Clinical Summary ---
Author Organization [facility] Address [address] [place] [address] Care Team Providers Care Bias Binding Cutter Name Role Phone Unavailable Primary Care Provider Unavailabl e Source Comments Patient records contain information from all sites at [facility]. For routine questions regarding patient records, call [phone] during business hours, M-F 8:00 AM - 5:00 PM Central Time. Record requests for emergency care only can be directed to [phone] at any time.[facility] Allergies Active Allergy Reactions Criticality Noted Date Comments Penicillin G Hives (Reselect Reaction) 02/04/20 22 Sulfa (Sulfonamide Antibiotics) Rash 02/03/2022 Medications dofetilide (TIKOSYN) 250 mcg capsule Take 250 mg by mouth 2 (two) times a day. 12/27/19 22 Active memantine (NAMENDA) 10 mg tablet TAKE 1 TABLET (10 MG) BY MOUTH TWICE DAILY. 11/18/19 22 Active lisinopriL (PRINIVIL,ZEST RIL) 10 mg tablet Take 10 mg by mouth daily. 01/20/20 22 Active Jantoven 5 mg tablet Take 5 mg by mouth daily. 01/30/20 22 Active DME CPAP BiPAP autoSV Advanced or VPAP adapt SV auto Max EPAP: 15 Min EPAP: 7 Max PS: 15 Min PS: 0 02/23/20 19 Active DUCODYL, BISACODYL, ORAL Take by mouth. Activ e calcitonin, salmon, (Miacalcin) 200 unit/actuation nasal spray Administer 200 Units into one nostril daily. 01/24/20 24 Active fexofenadine (Yris) 30 mg/5 mL suspension Take 30 mg by mouth daily. Active acetaminophen (TylenoL) 500 mg tablet Take 500 mg by mouth every 6 (six) hours as needed for pain. Active carbidopa-levo dopa (Sinemet) 25-100 mg per tablet Take 2.5 tablets by mouth 3 (three) times a day. 675 tablet 3 06/07/20 24 025 Active carbidopa-levo dopa (SINEMET) 25-100 mg per tablet Take 2.5 tablets by mouth 3 (three) times a day. 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 (HCC) from Last 3 Months Social History [...] Comments Blood Pressure 97/68 06/07/2024 12:41 PM OBJECTIVE C DEVELOPER Pulse 72 06/07/2024 12:41 PM OBJECTIVE C DEVELOPER Temperature 36.8 C (98.2 F) 05/17/2023 1:44 PM OBJECTIVE C DEVELOPER Respiratory Rate - - Oxygen Saturation - - Inhaled Oxygen Concentration - - Weight 78.9 kg (174 lb) 06/07/2024 12:41 PM OBJECTIVE C DEVELOPER Height 184 cm (6' 0.44) 04/15/2023 2:57 PM CDT Body Mass Index 23.31 04/15/2023 2:57 PM CDT Plan of Treatment Health Maintenance Due Date Last Done Comments Creatinine Level (Kidney Function Test) 1945 Hepatitis C Screening 1945 Potassium Level 1945 Sodium Level 1944 Fall Risk Screen (Annual) 07/12/2023 Office Visit for Blood Pressure Check / Re-check 06/07/2025 06/07/2024 DTaP,Tdap,and Td Vaccines (3 - Td or Tdap) 09/14/2033 09/15/2023, 08/21/2013 Pneumococcal vaccine (65+ years) Completed 08/28/2016, 08/28/2015, 01/28/2010 RSV vaccine - (32-36 weeks) or 60+ years Completed 04/17/2023 Zoster Vaccines Completed 11/16/2023, 12/2023, 01/28/2010 COVID-19 Vaccine Completed 04/17/2024, 01/2023, 05/07/2022, Additional history exists Influenza Vaccine Completed 04/17/2024, , 04/13/2022, Additional history exists IPV Vaccines Aged Out No longer eligi ble based on patient's age to complete this topic Insurance [facility]
--- OUTSIDE RECORDS SUMMARY | 2024-06-16 11:34 | XMS_ITS | Clinical Summary ---
Author [facility] Address [address] [place] [address] Care Team Providers Care Marine Farmer Name Role Phone Unavailable Primary Care Provider Unavailabl e Source Comments You are receiving this document as you are listed as the primary care provider,follow-up provider, or the patient has been referred to you for consultation.This is in compliance with the Medicare and[facility] Systemcaid EHR Incentive Program,which states Providers who transition their patient to another setting of careor provider of care or refers their patient to another provider of care shouldprovide summary care record for each transition of care or referral. [email or web address] Allergies Active Allergy Reactions Criticality Noted Date [...]
--- OUTSIDE RECORDS SUMMARY | 2024-06-16 11:34 | XMS_ITS | Continuity of Care Document ---
Author Organization [facility] Address [address] [place] [address] Phone Care Team Providers Care Geospatial Technologist Name Role Phone [facility] MD, [facility] Unavailable Unavailable Allergies, Adverse Reactions, Alerts Substance Reaction Status Criticality Sulfa (Sulfonamide Antibiotics) rash Active No Information PENICILLIN rash Active No Information Medications Medication Instructions Dosage Effective Dates (start - stop) Status Comments Kmdc-Lfzc-Uoyee 1%/0.5%/.01% OPHTHALMIC DROPS Apply one drop to [...] Date Provider Providers Copied on Encounter [facility], [address] [place], [id number], [place] tel:[phone] [facility] No Information 2 [facility]. [address] [place], [id number]. tel:[phone] Referring Provider: Timoteo Zhao, [address] [place], [address] . tel:[phone] [facility], [address] [place], [place], [id number], [place] tel:[phone] [facility] No Information 2 [facility]. [address] [place], [id number]. tel:[phone] Referring Provider: Timoteo Zhao, [address] [place], [address] . tel:[phone] [facility], [address] [place], [id number], [place] tel:[phone] [facility] No Information 9 [facility]. [address] [place], [id number]. tel:[phone] Referring Provider: Timoteo Zhao, [address] [place], [address] . tel:[phone] [facility], [address] [place], [id number], [place] tel:[phone] [facility] No Information 9 [facility]. [address] [facility], [place], [place], [id number]. tel:[phone] Referring Provider: Timoteo Zhao, [address] [place] [address], [address] . tel:[phone] [facility], [address] [place], [place], [id number], tel:[phone] [facility] No Information 9 Dave Mahmood. [address] [place] [address], [id number], [place]. tel:[phone] Family History Family Member Type Diagnosis Age At Onset No Information Payers Payer name Insurance type Covered constitution party ID Authoriza tion(s) [facility] [id number] Social History Type Description Quantity Date Captured [...]
--- OUTSIDE RECORDS SUMMARY | 2024-06-16 11:34 | XMS_ITS | Referral Summary ---
Author Organization [facility] Address [address] [place] [address] Care Team Providers Care Erecting Engineer Name Role Phone Unavailable Primary Care Provider Unavailabl e Source Comments Patient records contain information from all sites at [facility]. For routine questions regarding patient records, call [phone] during business hours, M-F 8:00 AM - 5:00 PM Central Time. Record requests for emergency care only can be directed to [phone] at any time.[facility] Encounters Date Type Department Care Team Description 06/07/2024 1:00 PM HEALTH DIAGNOSTICS TEACHER Office Visit Department of Neurology in [place], [place] [address] [address] Vic Mae M.D. 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 12/27/19 Active memantine (NAMENDA) 10 mg tablet TAKE 1 TABLET (10 MG) BY MOUTH TWICE DAILY. 11/18/19 Active lisinopriL (PRINIVIL,ZEST RIL) 10 mg tablet Take 10 mg by mouth daily. 01/20/20 Active Jantoven 5 mg tablet Take 5 [...] 2015 Overview (05/17/2023): 4.2 x [address] [facility] [address] Social History Tobacco Use Types [...] Comments Blood Pressure 97/68 06/07/2024 12:41 PM HEALTH DIAGNOSTICS TEACHER Pulse 72 06/07/2024 12:41 PM HEALTH DIAGNOSTICS TEACHER Temperature 36.8 C (98.2 F) 05/17/2023 1:44 PM HEALTH DIAGNOSTICS TEACHER Respiratory Rate - - Oxygen Saturation - - Inhaled Oxygen Concentration - - Weight 78.9 kg (174 lb) 06/07/2024 12:41 PM HEALTH DIAGNOSTICS TEACHER Height 184 cm (6' 0.44) 04/15/2023 2:57 PM CDT Body Mass Index 23.31 04/15/2023 2:57 PM CDT Plan of Treatment Not on [place] [address] [place] [id number] [facility]
== END 2024-06-16 11:27 | disposition home or self-care (01) ==
LOC: NFLDREF 11:28
PROVIDERS: PCP Family Medicine; Visit Provider Family Medicine
DX: R35.0 Frequency of micturition (principal)
CPT/HCPCS: 87086

== ENCOUNTER 2024-07-14 10:04 | Outpatient (CLI) | payer BC, SELFPAY ==
--- OUTSIDE RECORDS SUMMARY | 2024-07-13 16:19 | XMS_ITS | Clinical Summary ---
Author Organization [facility] Address [address] [place] [address] Care Team Providers Care Apartment Rental Clerk Name Role Phone Desiree Patrick MD Unavailable Farrah Nicole APRN,FOOTWEAR PRODUCTION MACHINE OPERATOR Unavailable Bry Echevarria MD Unavailable Jamal CARLISLE DO, Robert William Unavailable Unav ailable Shruti Vergara RN Unavailable Unavailable Allergies Active Allergy Reactions Criticality Noted Date Comments Penicillins Rash Medium Sulfa (Sulfonamide Antibiotics) Rash Medium 12/2015 Medications PAP MACHINEIndications :Central sleep apnea BiPAP autoSV Advanced or VPAP adapt SV auto Maximum pressure 25 Minimum EPAP 7 Maximum EPAP 20 Pressure support minimum 0 Pressure support max 18 Rate: auto Please check the patient's machine to make certain that the modem is working. 1 Each 02/23/20 19 Active cholecalciferol 1,000 unit oral tablet Take 1,000 Units by mouth once daily. Active polyethylene glycol 3350 (AKA: GLYCOLAX; MIRALAX) 17 gram oral Powder in Packet Take 17 g by mouth once daily. Active memantine (NAMENDA) 10 mg oral TabletIndications: Vascular dementia without behavioral disturbance (HCC) Take 1 Tablet (10 mg) by mouth twice daily. 180 Tablet 3 08/26/19 22 Active lisinopriL (ZESTRIL,PRINIVIL) 10 mg oral TabletIndications: Essential hypertension Take 1 Tablet (10 mg) by mouth once daily. 90 Tablet 3 08/26/19 Active donepeziL (ARICEPT) 10 mg oral TabletIndications: Vascular dementia without behavioral disturbance (HCC) Take 1 Tablet (10 mg) by mouth daily at bedtime. 90 Tablet 3 08/26/19 22 Active cetirizine (ZYRTEC) 10 mg oral Tablet Take 10 mg by mouth once daily as needed for congestion. Active ipratropium (ATROVENT) 21 mcg (0.03 %) nasal [place], Non-AerosolIndicat ions:PND (post-nasal drip) 2 Sprays by each nostril route three times daily as needed (runny nose). 30 mL 08/26/19 Active Additional Information Patient not taking.Reason: Not Available, Reported on 11/26/2021 PAP MACHINEIndications :Central sleep apnea BiPAP autoSV Advanced or VPAP adapt SV auto Max EPAP: 15 Min EPAP: 7 Max PS: 15 Min PS: 0 1 Each 11/27/19 Active dofetilide (TIKOSYN) 250 mcg oral CapsuleIndications :PAF (paroxysmal atrial fibrillation) (HCC) Take 1 Capsule (250 mcg) by mouth in the morning and 1 Capsule (250 mcg) in the evening. 180 Capsule 03/12/20 Active warfarin (COUMADIN) 5 mg oral TabletIndications: Paroxysmal atrial fibrillation (HCC),computer terminal operator (current) use of anticoagulants TAKE 1 TABLET BY MOUTH DAILY 90 Tablet 1 05/11/20 Active Active Problems Problem Noted Date Diagnosed Date History of prostate cancer 08/26/2021 Overview (08/26/2021): 2018 Vitamin D deficiency 08/26/2021 Dementia without behavioral disturbance 05/16/20 Overview (04/08/2021): alzheimer's type Aortic root dilatation 02/14/2020 Dependence on bilevel positi ve airway pressure (BiPAP) ventilation due to central sleep apnea 02/14/2020 Overview (08/26/2021): Severe central sleep apnea with an AHI 40.8 On dofetilide therapy 07/13/2019 Spinal stenosis of lumbar re gion without neurogenic claudication 12/20/2018 Imbalance 11/09/2018 Muscle weakness 11/09/2018 Muscle tightness 11/09/2018 Bilateral foot-drop 11/09/2018 alf (current) use of anticoagulants 2018 Encounter for monitoring dofetilide therapy 06/11 Atrial fibrillation (HCC) 06/21/2017 Essential hypertension 10/21/2016 Thoracic ascending aortic aneurysm 06/11/2016 Overview (10/08/2016): 4.[address] [facility] [address] Atrial flutter 11/15/2015 Esophageal dysmotility Overview (10/29/2020): uses Reglan on a PRN basis Hearing loss Overview (08/26/2021): wears hearing aids Hepatitis C antibody test positive Overview (08/28/2021): negative quant RNA Resolved Problems Problem Noted [...] often do you attend chur ch or advent services? More than 4 times [...] and heating? Not hard at all 04/04/2021 [facility] - Occupational [...] place to sleep or slept in a group home (including now)? No 04/04/2021 Depression (PHQ-9) Answer Date Recorded Last PHQ-9 Score Not on file 08/27/2022 Thoughts of self harm Not at all 08/27/2022 Education Answer Date Recorded What is the highest level of school you have completed or the highest degree you have received? Master's degree (e.g., MA, MS, Mirlande, MEd, ASSISTANT FAMILY TEACHER, ROHIT) 08/19/2020 Sex and Gender Information Value Date Recorded Sex Assigned at Not on file Legal Sex Male 6:02 AM ACADEMIC AFFAIRS VICE PRESIDENT Gender Identity Not on file Sexual Orientation Not on file Occupation Industry Job Start Date Job End Date retired Not on file Not on file Not on file Last Filed Vital Signs [...] Tdap) 08/21/2023 08/21/2013, 12/26/2002 COVID-19 Vaccine ( - season) 2024 11/04/2021, 04/29/2021, 09/05/2020, Additional [...] HEPATITIS C AB Routine 08/26/2021 10:09 AM ACADEMIC AFFAIRS VICE PRESIDENT Need for hepatitis C screening test COLONOSCOPY Routine 02/27/2020 8:05 AM CDT LIPID PANEL Routine 08/18/2019 9:23 AM ACADEMIC AFFAIRS VICE PRESIDENT Screening for lipid disorders from Last 3 Months or Most Recently Relevant to Health Maintenance Results * (ABNORMAL) HEPATITIS C AB (08/26/2021 10:09 AM ACADEMIC AFFAIRS VICE PRESIDENT) HCV Ab Reactive( A) Nonreactive 08/26/2021 7:41 PM ACADEMIC AFFAIRS VICE PRESIDENT [facility] Comment: This is a reportable disease sent to the [place] [facility]. 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 State of associated disease not determined. Blood VENOUS BLOOD / Unknown Venipuncture / Unknown 08/26/2021 10:09 AM ACADEMIC AFFAIRS VICE PRESIDENT 08/26/2021 10:09 AM ACADEMIC AFFAIRS VICE PRESIDENT us Bianka Norbert Edlund CAT BREEDER LAB SEROLOGY ORDERABLES Final Result Performing Organization Address City/State/[facility] Co de Phone Number [facility] [address] [place] [address] * COLONOSCOPY (02/27/2020 8:05 AM CDT) 02/27/2020 8:05 AM CDT Narrative [facility] - 02/27/2020 9:20 AM CDT [facility] Patient Name: Rohan Carroll [...] of the bowel preparation was excellent. The [id number] was introduced through the anus and advanced [...] 0 Note Initiated On: 02/27/2020 8:05 AM us Stephani Aleman MD GI PROCEDURES Final Result [facility] * (ABNORMAL) LIPID PANEL (08/18/2019 9:23 AM ACADEMIC AFFAIRS VICE PRESIDENT) Cholesterol 96 0 - 200 mg/dL 08/18/2019 7:32 PM [facility] Triglycerides 65 30 - 150 mg/dL 08/18/2019 7:32 PM [facility] Cholesterol, LDL (Calculated) 45 0 - 159 mg/dL 08/18/2019 7:32 PM [facility] Food on the Table [facility] Cholesterol, HDL 38(L) >40 mg/dL 08/18/19 20 7:32 PM [facility] Food on the Table [facility] Cholesterol, vLDL 13 mg/dL 020 7:32 PM [facility] Blood VENOUS BLOOD SPECIMEN / Unknown Venipuncture / Unknown 08/18/2019 9:23 AM ACADEMIC AFFAIRS VICE PRESIDENT 08/18/2019 9:23 AM ACADEMIC AFFAIRS VICE PRESIDENT us Stephani Aleman MD LAB CHEMISTRY ORDERABLES Fin al Result [facility] [address] [place] [address] from Last 3 Months or Most Recently Relevant to Health Maintenance [place] [id number] MEDICARE A ONLY [facility] [employer] [place] [address] [facility] [employer] MEDICARE A ONLY MEDICARE A ONLY Member Subscriber Plan / Payer (Ef fective 2014-Present) Name:Rohan Carroll Member ID:[id number] Relation to Subscriber:Self Name:Rohan Carroll Subscriber ID:[id number] Payer ID:[id number] Group ID:Not on file Type:Medicare Address: [address] FEDERAL EMPLOYEES [facility] [employer] MEDICARE A ONLY MEDICARE A ONLY Member Subscriber Plan / Payer (Ef fective 2014-Present) Name:Rohan Carroll Member ID:[id number] Relation to Subscriber:Self Name:Rohan Carroll Subscriber ID:[id number] Payer ID:[id number] Group ID:Not on file Type:Medicare Address: [address] [employer] MEDICARE A ONLY Member Subscriber Plan / Payer (Ef fective 2014-Present) Name:Rohan Carroll Member ID:[id number] Relation to Subscriber:Self Name:Rohan Carroll Subscriber ID:[id number] Payer ID:[id number] Group ID:Not on file Type:Medicare Address: [address] [employer] Advance Directives Documents on File Type Date Recorded Patient Enterprise Sales Executive Expl anation Advanced Directives 08/23/2014 3:05 PM [facility] * Full Code (Latest Code Status on File) Date Activated Date Inactivated Comments 06/21/2017 3:50 PM 06/24/2017 4:37 PM * Full Code Date Activated Date Inactivated Comments 10/19/2016 4:45 PM 10/20/2016 8:57 PM * Full Code Date Activated Date Inactivated Comments 11/15/2015 11:16 PM 11/16/2015 11:46 AM Care Teams Apartment Rental Clerk Relationship Specialty Start Date End Date Desiree Patrick MD [address] [place] [phone] 08/09/17 Farrah Nicole APRN,FOOTWEAR PRODUCTION MACHINE OPERATOR [address] [place] [address] 08/09/17 Bry Echevarria MD [address] [place] [phone] 08/09/17 Casey Berry II, DO 08/09/17 Shruti Vergara, RN RN Registered Nurse 08/27/20 Additional Source Comments PLEASE NOTE: Replies to this message will not be received.[facility]
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
--- OUTSIDE RECORDS SUMMARY | 2024-07-13 16:19 | XMS_ITS | Clinical Summary ---
Author Organization [facility] Address [place], [place] [address] Care Team Providers Care Drawing Frame Tender Name Role Phone Marli Sauceda MD Primary Care Provider + Allergies Active Allergy Reactions Criticality Noted Date Comments Penicillins Hives,Rash Medium 02/03/2022 Sulfa (Sulfonamide Antibiotics) Rash Medium /12/2015 Medications carbidopa-levodop a, 25-100 mg, (SINEMET 25-100) 25-100 mg tablet Take 1 Tablet by mouth three times daily. 2 Active cholecalciferol (VITAMIN D3) 1,000 unit tablet Take 25 mcg by mouth once daily. Active donepeziL (ARICEPT) 10 mg tablet Take 10 mg by mouth at bedtime. 2 Active ipratropium (ATROVENT NASAL) 21 mcg (0.03 %) nasal spray Inhale 2 Sprays into affected nostril(s) three times daily. As needed 2 Active lisinopriL (PRINIVIL; ZESTRIL) 10 mg tablet Take 10 mg by mouth once daily. 2 Active memantine (NAMENDA) 10 mg tablet Take 10 mg by mouth two times daily. 2 Active warfarin (Jantoven) 5 mg tablet Take 5 mg by mouth once daily. 2 Active dofetilide (TIKOSYN) 250 mcg capsuleIndication s:Paroxysmal atrial fibrillation (HC) Take 1 Capsule (250 mcg) by mouth every 12 hours. Pt is due for labs/EKG August 2024 180 Capsule 4 Active Active Problems Problem Noted Date Diagnosed Date Ascending aorta dilatation 04/24/2022 PAF (paroxysmal atrial fibrillation) 04/24/2022 Parkinson disease 04/24/2022 Encounters Date Type Department Care Team Description 05/18/2024 Orders Only [facility] Scanner 1 scan: [facility]-Ord) [facility], 05/18/2024 05/18/2024 Orders Only [facility] Scanner 1 scan: (1-Ord) [facility], LAB RESULTS, 05/18/2024 05/16/2024 Telephone [facility] [address] [place] [address] Kiya Gomes RN Medication Management (Tikosyn/) 04/20/2024 8:30 AM CDT Office Visit [facility] & [address] [address] Shyann Douglas MD from Last 3 Months Social History Tobacco Use Types Packs/Day Years Used Date Smoking Tobacco: Never Assessed Social Connections Answer Date Recorded Frequency of Communication with Friends and Fami ly Not on file 04/24/2022 Sex and Gender Information Value Date Recorded Sex Assigned at Not on file Legal Sex Male 1:09 PM CDT Gender Identity Not on file Sexual Orientation Not on file Plan of Treatment Health Maintenance Due Date Last Done Comments Pneumococcal series for age 50+ (1 of 2 - PCV) 1951 Tdap 11/23/1955 Depression screening for age 12+ [...] Comments SCAN-ELECTROCARDIOG THEA EKG 05/18/2024 12:00 AM CERTIFIED WELLNESS PROGRAM MANAGER SCAN-LABORATORY REPORT 05/18/2024 12:00 AM CERTIFIED WELLNESS PROGRAM MANAGER from Last 3 Months Results * SCAN-LABORATORY REPORT (05/18/2024 12:00 AM CERTIFIED WELLNESS PROGRAM MANAGER) us Scanner OTHER Final Result * SCAN-ELECTROCARDIOGRAM EKG (05/18/2024 12:00 AM CERTIFIED WELLNESS PROGRAM MANAGER) us Scanner OTHER Final Result from Last 3 Months Insurance [facility] E[facility] Care Teams Drawing Frame Tender Relationship Specialty Start Date End Date Marli Sauceda MD [address] [place] [address] PCP - General Family Practice 03/13/22
--- OUTSIDE RECORDS SUMMARY | 2024-07-13 16:20 | XMS_ITS | Encounter Summary ---
Author Organization [facility] Address [address] [place] [address] Care Team Providers Care Human Resources Services Specialist Name Role Phone Desiree Patrick MD Unavailable Farrah Nicole APRN, CNS Unavailable [phone] Bry Echevarria MD Unavailable Jamal CARLISLE DO, Robert William Unavailable Unav ailable Shruti Vergara RN Unavailable Unavailable Desiree Patrick MD Primary Care P rovider Encounter Details Date Type Department Care Team (Late st Contact Info) Description 02/25/[address] [address] Social History Tobacco Use Types [...] How often do you attend chur or mosque services? More than 4 times per year 04/04/2021 Do you belong to any clubs o r organizations such as yazidism groups, unions, fraternal or athletic groups, or [...] heating? Not hard at all 04/04/2021 [facility] - Occupational Stress [...] place to sleep or slept in a fci (including now)? No 04/04/2021 Depression (PHQ-9) Answer Date Recorded Last PHQ-9 Score 3 08/22/2021 Thoughts of self harm Not at all 08/22/2021 Education Answer Date Recorded What is the highest level of school you have completed or the highest degree you have received? Master's degree (e.g., MA, MS, [place], MEd, ENGINEERING TECHNICAL SPECIALIST, [employer]) 08/19/2020 Sex and Gender Information Value Date Recorded Sex Assigned at Not on file Legal Sex Male 6:02 AM AUDITOR/QUALITY Gender Identity Not on file Sexual Orientation Not on file Occupation Industry Job Start Date Job End Date retired Not on file Not on file Not on file documented as of this encounter Functional Status * Are you deaf or do you have serious difficulty hearing? Answer Date of Assessment Author No 08/26/2021 9:26 AM AUDITOR/QUALITY Asher Cherry LPN * Are you blind or do you have serious difficulty seeing, even when wearing glasses? Answer Date of Assessment Author No 08/26/2021 9:26 AM Asher Sauceda LPN * Do you have serious difficulty walking or climbing stairs? Answer Date of Assessment Author No 08/26/2021 9:26 AM Asher Sauceda LPN * Do you have difficulty dressing or bathing? Answer Date of Assessment Author No 08/26/2021 9:26 AM Asher Sauceda LPN * Do you have difficulty doing errands alone such as visiting a doctor's office or shopping because of a physical, mental, or emotional condition? Answer Date of Assessment Author No 08/26/2021 9:26 AM Asher Sauceda LPN documented as of this encounter Mental Status * Do you have trouble concentrating, remembering, or making decisions because of a physical, mental, or emotional condition? Answer Entry Date Author No 08/26/2021 9:26 AM Asher Sauceda LPN documented in this encounter Plan of Treatment Not on file documented as of this encounter Procedures Procedure Name Priority Date/Time Associated Diagnosis Comments LAB/OUTSIDE LAB - S 02/25/2022 1:40 PM CDT documented in this encounter Results * LAB/OUTSIDE LAB - S (02/25/2022 1:40 PM CDT) us Scan Elliot PROCEDURE NOTE Final Result documented in this encounter Visit Diagnoses Not on filedocumented in this encounter Care Teams Human Resources Services Specialist Relationship Specialty Start Date End Date Desiree Patrick MD [address] [place] [place] [address] PCP - General Electrophysiology 02/23/22 03/09/22 Desiree Patrick MD [address] [place] [address] 08/09/17 Farrah Nicole APRN,FOOD PREPARATION WORKER [address] [place] [place] [address] 08/09/17 Bry Echevarria MD [address] [place] [phone] 08/09/17 Casey Berry II, DO 08/09/17 Shruti Vergara RN RN Registered Nurse 08/27/20 documented as of this encounter Additional Source Comments PLEASE NOTE: Replies to this message will not be received.[facility] and [facility]
--- OUTSIDE RECORDS SUMMARY | 2024-07-13 16:20 | XMS_ITS ---
Author Organization [facility] Address [address] [place] [address] Care Team Providers Care Knitting Tester Name Role Phone Desiree Patrick MD Unavailable Farrah Nicole APRN,MEN'S GARMENT FITTER Unavailable Bry Echevarria MD Unavailable Jamal CARLISLE [...] 06/11/2016 Overview (10/08/2016): 4.2 x 4.[address] [facility] Atrial flutter 11/15/2015 Esophageal dysmotility Overview (10/29/2020): uses Reglan on a PRN basis Hearing loss Overview (08/26/2021): wears hearing aids Hepatitis C antibody test positive Overview (08/28/2021): negative quant RNA Current Oncology Plans No current plan information found. Past Plans No past plan information found. Radiation Treatments * No radiation treatments are documented for this patient in [facility]. Treatments may have been administered in [...]
--- OUTSIDE RECORDS SUMMARY | 2024-07-13 16:20 | XMS_ITS | Encounter Summary ---
Author Organization [facility] Address [address] [place] [address] Care Team Providers Care Steam Pressure Chamber Operator Name Role Phone Jamal CARLISLE DO, Robert William Primary Care Provide r Unavailable Desiree Patrick MD Unavailable Farrah Nicole APRN,HUMAN INSIGHTS LEAD ADS MARKETING Unavailable [phone] Bry Echevarria MD Unavailable [phone] Jamal CARLISLE DO, Robert William Unavailable Unav Stephani Diaz MD Primary Care Provider Shruti Vergara RN Unavailable Unavailable Bianka Loera CNP Primary Care Provider Desiree Patrick MD Primary Care P rovider Encounter Details Date Type Department Care Team (Late st Contact Info) Description 02/06/2019 HIM Nib Finisher [facility] [address] [address] Rakesh Williamson Chi, MD Social History Tobacco Use Types Packs/Day Years Used Date Smoking Tobacco: Former Cigarettes 1 18 1 961 - 1978 Smokeless Tobacco: Never Alcohol Use Standard Drinks/Week Comments Yes 12 (1 standard drink = 0.6 oz pu re alcohol) 1-2 beers daily Sex and Gender Information Value Date Recorded Sex Assigned at Not on file Legal Sex Male 6:02 AM TECHNICAL RESEARCH SCIENTIST Gender Identity Not on file Sexual Orientation Not on file Occupation Industry Job Start Date Job End Date retired Not on file Not on file Not on file documented as of this encounter Functional Status * Are you deaf or do you have serious difficulty hearing? Answer Date of Assessment Author Yes 06/21/2017 2:44 PM Grazyna Bey RN * Are you blind or do you have serious difficulty seeing, even when wearing glasses? Answer Date of Assessment Author No 06/21/2017 2:44 PM Grazyna Bey RN * Do you have serious difficulty walking or climbing stairs? Answer Date of Assessment Author No 06/21/2017 2:44 PM Grazyna Bey RN * Do you have difficulty dressing or bathing? Answer Date of Assessment Author No 06/21/2017 2:44 PM Grazyna Bey RN * Do you have difficulty doing errands alone such as visiting a doctor's office or shopping because of a physical, mental, or emotional condition? Answer Date of Assessment Author No 06/21/2017 2:44 PM Grazyna Bey RN documented as of this encounter Mental Status * Do you have trouble concentrating, remembering, or making decisions because of a physical, mental, or emotional condition? Answer Entry Date Author No 06/21/2017 2:44 PM Grazyna Bey RN documented in this encounter Procedure Notes * Rakesh Williamson Chi, MD - 02/06/2019 12:00 AM CDTAssociated Order(s): ECHOCARDIOGRAM TRANSTHORACIC ADULT WITH OR WITHOUT CONTRAST PERFORMED BY: [place] [place] SITE: [place] [place] INTERPRETED BY: [facility] [place] [place] TRANSTHORACIC ECHOCARDIOGRAM REPORT REFERRING DIAGNOSIS: Sleep [...] function. Note: This study was performed by [facility]. Only the interpretation was performed at the [facility] [place]. Electronically signed Rakesh Williamson MD Javascript Application Developer , 06:42 A A felipa/Doc#: [id number] cc: Antoine Fitzpatrick MD Adult Normal Value [...] Blood pressure: 139/86 mmHg Previous study: 01/06/2017 Cotton Sampler: KRISTA documented in this encounter Plan of [...] - 02/06/2019 12:00 AM CDT PERFORMED BY: [place] [place] SITE: [place] [place] INTERPRETED BY: [facility] [place] [place] TRANSTHORACIC ECHOCARDIOGRAM REPORT REFERRING DIAGNOSIS: Sleep [...] function. Note: This study was performed by [facility]. Only theinterpretation was performed at the [facility] [place]. Electronically signed Rakesh Williamson MD Javascript Application Developer , 06:42 A A felipa/Doc#: [id number] cc: Antoine Fitzpatrick MD Adult Normal Value [...] Blood pressure: 139/86 mmHg Previous study: 01/06/2017 Cotton Sampler: KRISTA us Antoine Fitzpatrick MD,PHD CAR ULTRASOUND Edit ed Result - Final documented in this encounter Visit Diagnoses Not on filedocumented in this encounter Care Teams Steam Pressure Chamber Operator Relationship Specialty Start Date End Date Casey Berry II, DO PCP - General 11/22/06 08/17/19 Stephani Aleman MD PCP - General Family Medicine 08/18/19 09/16/20 Bianka Loera PLATFORM POWER TECHNICIAN [address] [place] [phone] PCP - General Nurse Practitioner Family 09/17/2001/10 Desiree Patrick MD [address] [place] [address] PCP - General Electrophysiology 02/23/22 03/09/22 Desiree Patrick MD [address] [place] [address] 08/09/17 Farrah Nicole APRN,HUMAN INSIGHTS LEAD ADS MARKETING [address] [place] [address] 08/09/17 Bry Echevarria MD [address] [facility] [place] [phone] 08/09/17 Casey Berry II, DO 08/09/17 Shruti Vergara RN RN Registered Nurse 2/16/21 documented as of this encounter Additional Source Comments PLEASE NOTE: Replies to this message will not be received.[facility] and [facility]
--- OUTSIDE RECORDS SUMMARY | 2024-07-13 16:20 | XMS_ITS | Encounter Summary ---
Author Organization [facility] Address [address] [place] [address] Care Team Providers Care Accounts Receivable Representative Name Role Phone Jamal CARLISLE DO, Robert William Primary Care Provide r Unavailable Desiree Patrick MD Unavailable Farrah Nicole APRN,DEODORIZER OPERATOR Unavailable Bry Echevarria MD Unavailable [phone] Jamal CARLISLE DO, Robert William Unavailable Unav Stephani Diaz MD Primary Care Provider [phone] Shruti Vergara RN Unavailable Unavailable Bianka Loera CNP Primary Care Provider Desiree Patrick MD Primary Care P rovider Encounter Details Date Type Department Care Team (Late st Contact Info) Description 06/23/2018 Historical Conversion [facility] Family Medicine [address] [place] [address] Moon Maloney MD Social History Tobacco Use Types Packs/Day Years Used Date Smoking Tobacco: Former Cigarettes 1 18 1 961 - 1978 Smokeless Tobacco: Never Alcohol Use Standard Drinks/Week Comments Yes 12 (1 standard drink = 0.6 oz pu re alcohol) 1-2 beers daily Sex and Gender Information Value Date Recorded Sex Assigned at Not on file Legal Sex Male 6:02 AM DATA ENTRY Gender Identity Not on file Sexual Orientation [...] Grazyna Bey RN documented in this encounter Progress Notes * Moon Maloney MD - 07/22/2018 12:00 AM CST UROLOGY [facility] : 1945 HX: [id number] DOS: 07/22/2018 SUBJECTIVE: Cristian saw me on [...] Moon Maloney M.D./la-15 cc: Casey Berry II, D.OWilliam/[facility] Electronically signed by:Moon Maloney M.D. Jul 27 2018 9:15AM DATA ENTRY * Moon Maloney MD - 06/23/2018 12:00 AM CST UROLOGY [facility] [place] : [id number] 06/23/2018 SUBJECTIVE: Cristian comes to see me [...] short-term ADT. He is not on any ZOOLOGY PROFESSOR. His most recent PSA was 0.051 so [...] we will go from there. Moon Maloney M.D./h-14 cc: Dr. Kofi Navarro-[facility] Electronically signed by:Moon Maloney M.D. Jun 24 2018 12:40PM DATA ENTRY documented in this encounter Plan of Treatment Not on file documented as of this encounter Visit Diagnoses Not on filedocumented in this encounter Care Teams Accounts Receivable Representative Relationship Specialty Start Date End Date Casey Berry II, DO PCP - General 11/22/06 08/17/19 Stephani Aleman MD PCP - General Family Medicine 08/18/19 09/16/20 Bianka Loera CNP [address] [place] [address] [address] [place] [address] PCP - General Nurse Practitioner Family 09/17/2001/10 [place] [address] [place] [address] PCP - General Electrophysiology 02/23/22 03/09/22 Desiree Patrick MD [address] [place] [address] 08/09/17 Farrah Nicole APRN,DEODORIZER OPERATOR [address] [facility] [place] [address] 08/09/17 Bry Echevarria MD [address] [place] [address] [place] [address] 08/09/17 Casey Berry II, DO 08/09/17 Shruti Vergara RN RN Registered Nurse 08/27/20 documented as of this encounter Additional Source Comments PLEASE NOTE: Replies to this message will not be received.[facility]
--- OUTSIDE RECORDS SUMMARY | 2024-07-13 16:20 | XMS_ITS | Encounter Summary ---
Author Organization [facility] Address [address] [place] [address] Care Team Providers Care Collections Assistant Name Role Phone Jamal CARLISLE DO, Robert William Primary Care Provide r Unavailable Desiree Patrick MD Unavailable Farrah Nicole APRN,RUN LEAD Unavailable Bry Echevarria MD Unavailable Jamal CARLISLE DO, Robert William Unavailable Unav Stephani Diaz MD Primary Care Provider Shruti Vergara RN Unavailable Unavailable Bianka Loera CNP Primary Care Provider Desiree Patrick MD Primary Care P rovider Encounter Details Date Type Department Care Team (Late st Contact Info) Description 07/22/2018 Historical Conversion [facility] Family Medicine [address] [place] [address] Moon Maloney MD Social History Tobacco Use Types Packs/Day Years Used Date Smoking Tobacco: Former Cigarettes 1 18 1 961 - 1978 Smokeless Tobacco: Never Alcohol Use Standard Drinks/Week Comments Yes 12 (1 standard drink = 0.6 oz pu re alcohol) 1-2 beers daily Sex and Gender Information Value Date Recorded Sex Assigned at Not on file Legal Sex Male 6:02 AM GENERAL OFFICE ASSISTANT Gender Identity Not on file Sexual Orientation Not on file Occupation Industry Job Start Date Job End Date retired Not on file Not on file Not on file documented as of this encounter Last Filed Vital Signs Vital Sign Reading Time Taken Comments Blood Pressure 120/58 07/22/2018 12:00 AM GENERAL OFFICE ASSISTANT Pulse - - Temperature - - Respiratory Rate - - Oxygen Saturation - - Inhaled Oxygen Concentration - - Weight 93.8 kg (206 lb 12.7 oz) 019 12:00 AM GENERAL OFFICE ASSISTANT Height - - Body Mass Index 27.28 06/20/2018 8:23 AM GENERAL OFFICE ASSISTANT documented in this encounter Functional Status * Are you [...] Grazyna Bey RN documented in this encounter Plan of Treatment Not on file documented as of this encounter Visit Diagnoses Not on filedocumented in this encounter Care Teams Collections Assistant Relationship Specialty Start Date End Date Casey Berry II, DO PCP - General 11/22/06 08/17/19 Stephani Aleman MD PCP - General Family Medicine 08/18/19 09/16/20 Bianka Loera CNP [address] [place] [address] PCP - General Nurse Practitioner Family 09/17/20 7/12/31 Desiree Patrick MD [address] [place] [address] PCP - General Electrophysiology 02/23/22 03/09/22 Desiree Patrick MD [address] [place] [address] 08/09/17 Farrah Nicole APRN,RUN LEAD [address] [place] [address] 08/09/17 Bry Echevarria MD [facility] [place] [address] 08/09/17 Casey Berry II, DO 08/09/17 Shruti Vergara RN RN Registered Nurse 08/27/20 documented as of this encounter Additional Source Comments PLEASE NOTE: Replies to this message will not be received.[facility]
--- OUTSIDE RECORDS SUMMARY | 2024-07-13 16:20 | XMS_ITS | Encounter Summary ---
Author Organization [employer] Address [address] [place] [address] Care Team Providers Care Fisher Trawl Net Name Role Phone Jamal CARLISLE DO, Robert William Primary Care Provide r Unavailable Desiree Patrick MD Unavailable Farrah Nicole APRN,HRIS ADMINISTRATOR Unavailable Bry Echevarria MD Unavailable Jamal CARLISLE DO, Robert William Unavailable Unav Stephani Diaz MD Primary Care Provider Shruti Vergara RN Unavailable Unavailable Bianka Loera CNP Primary Care Provider Desiree Patrick MD Primary Care P rovider Encounter Details Date Type Department Care Team (Late st Contact Info) Description 09/08/2018 Historical Conversion [facility] Family Medicine [address] [place] [address] Casey Berry II, DO Social History Tobacco Use Types Packs/Day Years Used Date Smoking Tobacco: Former Cigarettes 1 18 1 961 - 1978 Smokeless Tobacco: Never Alcohol Use Standard Drinks/Week Comments Yes 12 (1 standard drink = 0.6 oz pu re alcohol) 1-2 beers daily Sex and Gender Information Value Date Recorded Sex Assigned at Not on file Legal Sex Male 6:02 AM BI LEAD Gender Identity Not on file Sexual Orientation [...] Grazyna Bey RN documented in this encounter H&P Notes * [...] Verification; Done: 08Sep2018 09:12AM Vitamin D Total [facility]; Status:Resulted - Requires Verification; Done: 08Sep2018 09:12AM [employer] Drawing Fee; Status:Complete; Done: 08Sep2018 [facility] Center Consult Consult Only Evaluation and Treatment Status: Hold For - Required information Requested for: [id number] Phone Number to Contact Patient: : See chart to Provider, Practice or Agency: : [facility] Folate; Status:Resulted - Requires Verification; Done: 08Sep2018 [...] 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 HEALTH CARE MAINTENANCE: Colonoscopy in 2009, due in 2019. Current Meds 1. Dofetilide 250 MCG Oral Capsule; TAKE 1 CAPSULE EVERY 12 HOURS; Last Rx:[id number] Ordered 2. Jantoven 5 MG Oral Tablet; TAKE 1 1/2 TABLET BY MOUTH ON WEDNESDAYS, AND 1 TABLET BY MOUTH ALL OTHER DAYS OF THE WEEK DIRECTED; Therapy: 13Apr2018 to (Evaluate:28Sep2018) Requested for: 78Gay2590; Last Rx:[id number] Ordered 3. Lisinopril 10 MG Oral Tablet; TAKE ONE TABLET DAILY; Therapy: 18Oct2017 to Recorded 4. Metoclopramide HCl - 5 MG Oral Tablet; TAKE 1 TABLET BY MOUTH THREE TIMES DAILY WITH MEALS NEEDED; Therapy: 10Sep2014 to (Evaluate:91Dgh3091) Requested for: 75Myz9916; Last Rx:[id number] Ordered 5. Oxybutynin Chloride ER 10 MG Oral Tablet Extended Release 24 Hour; TAKE 1 TABLET DAILY; Therapy: 99Msl1848 to (Evaluate:99Rds8209) Requested for: 69Mgw0436; Last Rx:[id number] Ordered 6. Polyethylene Glycol 3350 Oral Powder; take 17 grams in 8 ounces of fluid once daily as needed for constipation; Therapy: 00Ecm6438 to (Evaluate:62Nri9434); Last Rx:[id number] Ordered 7. Sildenafil Citrate 100 MG Oral Tablet; Take 1/2-1 tab 1 hour before sexual activity; Therapy: 93Euc2165 to (Last Rx:[id number]) Requested for: 79Ekc4955 Ordered 8. Triamcinolone Acetonide 0.1 % External Lotion; APPLY 2-3 TIMES DAILY TO AFFECTED AREA(S); Therapy: 87Not4759 to (Last Rx:[id number]) Requested for: 97Zxr3211 Ordered Allergies 1. Penicillins 2. Sulfa Drugs PENICILLIN AND SULFA. Immunizations Tetanus in 2013. Pneumovax in 2009. Prevnar in 2015. Shingles shot 2009. We did discuss about [...] Prostate firm, no masses, nontender. Results/Data CBC 08Sep2018 09:12AM Casey Berry FASTING Test Name [...] % 0.9 % 0-2 Comprehensive Metabolic Panel [id number] 09:12AM Casey Berry FASTING Test Name Result [...] Carbon Dioxide 28 mmol/L 22-30 Lipid Panel [id number] 09:12AM Casey Berry FASTING Test Name Result Flag Reference Cholesterol 92 mg/dl < 200 Triglycerides 59 mg/dl < 150 HDL 43 mg/dl 40 or > LDL - Calculated 37 mg/dl < 130 *L/H Ratio 0.9 L 1.0-4.7 Vitamin D Total [facility] [id number] 09:12AM Casey Berry Test Name Result Flag Reference Vitamin D Total - [facility] 20.9 ng/ml L 30-100 Deficiency <10ng/mL Insufficiency 10-29 ng/mL Sufficiency 30-100 ng/mL Possible Toxicity >100 ng/mL TSH [id number] 09:12AM Casey Berry FASTING Test Name Result Flag Reference TSH 1.670 uIU/ml 0.30-4.70 Vitamin B12 [id number] 09:12AM Casey Berry Test Name Result Flag Reference Vitamin B12 382 pg/ml 200-1000 Folate [id number] 09:12AM Casey Berry Test Name Result Flag Reference Folate >20.0 ng/ml H 6.6-19.9 Signatures Casey Berry II D.OWilliam/naomie-28 REVISED NOTE 09/12/2018/naomie Electronically signed by : Casey Berry DO; Sep 09 2018 11:14AM BI LEAD Electronically signed by : Casey Berry DO; Sep 12 2018 9:09AM BI LEAD documented in this encounter Plan of Treatment Not on file documented as of this encounter Visit Diagnoses Not on filedocumented in this encounter Care Teams Fisher Trawl Net Relationship Specialty Start Date End Date Casey Berry II, DO PCP - General 11/22/06 08/17/19 Stephani Aleman MD PCP - General Family Medicine 08/18/19 09/16/20 Bianka Loera CNP [address] [place] [address] 2 [place] [address] PCP - General Nurse Practitioner Family 09/17/20 7/2 12/31 Desiree Patrick MD [address] [place] [address] PCP - General Electrophysiology 02/23/22 03/09/22 Desiree Patrick MD [address] [place] [address] 08/09/17 Farrah Nicole APRN,HRIS ADMINISTRATOR [address] [place] [address] 08/09/17 Bry Echevarria MD [facility] [place] [address] 08/09/17 Casey Berry II, DO 08/09/17 Shruti Vergara RN RN Registered Nurse 08/27/20 documented as of this encounter Additional Source Comments PLEASE NOTE: Replies to this message will not be received.[facility]
--- OUTSIDE RECORDS SUMMARY | 2024-07-13 16:20 | XMS_ITS | Encounter Summary ---
Author Organization [employer] Address [address] [place] [address] Care Team Providers Care Bus Transportation Manager Name Role Phone Jamal CARLISLE DO, Robert William Primary Care Provide r Unavailable Desiree Patrick MD Unavailable Farrah Nicole APRN,FISHER SPEAR Unavailable Bry Echevarria MD Unavailable Jamal CARLISLE DO, Robert William Unavailable Unav Stephani Diaz MD Primary Care Provider [phone] Shruti Vergara RN Unavailable Unavailable Bianka Loera CNP Primary Care Provider [phone] Desiree Patrick MD Primary Care P rovider Encounter Details Date Type Department Care Team (Late st Contact Info) Description 06/13/2018 Historical Conversion [facility] Family [facility] [address] [facility] [place] [address] Bry Echevarria MD [address] [place] [address] Social History Tobacco Use Types Packs/Day Years Used Date Smoking Tobacco: Former Cigarettes 1 18 1 961 - 1978 Smokeless Tobacco: Never Alcohol Use Standard Drinks/Week Comments Yes 2 (1 standard drink = 0.6 oz pur e alcohol) 1-2 beers daily Sex and Gender Information Value Date Recorded Sex Assigned at Not on file Legal Sex Male 6:02 AM BRINE PROCESS OPERATOR Gender Identity Not on file Sexual Orientation Not on file Occupation Industry Job Start Date Job End Date retired Not on file Not on file Not on file documented as of this encounter Last Filed Vital Signs Vital Sign Reading Time Taken Comments Blood Pressure 120/78 06/13/2018 12:00 AM BRINE PROCESS OPERATOR Pulse - - Temperature - - Respiratory Rate - - Oxygen Saturation - - Inhaled Oxygen Concentration - - Weight 93.8 kg (206 lb 12.7 oz) 018 12:00 AM BRINE PROCESS OPERATOR Height - - Body Mass Index 27.29 05/18/2018 8:54 AM BRINE PROCESS OPERATOR documented in this encounter Functional Status * [...] filedocumented in this encounter Care Teams Bus Transportation Manager Relationship Specialty Start Date End Date Casey Berry II, DO PCP - General 11/22/06 08/17/19 Stephani Aleman MD PCP - General Family Medicine 08/18/19 09/16/20 Bianka Loera, SOFTWARE PROJECT LEAD [address] [place] [address] PCP - General Nurse Practitioner Family 09/17/2001/10 Desiree Patrick MD [address] [place] [address] PCP - General Electrophysiology 02/23/22 03/09/22 Desiree Patrick MD [address] [place] [address] 08/09/17 Farrah Nicole APRN,FISHER SPEAR [address] [place] [address] 08/09/17 Bry Echevarria MD [address] [place] [phone] 08/09/17 Casey Berry II, DO 08/09/17 Shruti Vergara, RN RN Registered Nurse 08/27/20 documented as of this encounter Additional Source Comments PLEASE NOTE: Replies to this message will not be received.[facility] and [facility]
--- OUTSIDE RECORDS SUMMARY | 2024-07-13 16:20 | XMS_ITS | Encounter Summary ---
Author Organization [employer] Address [address] [place] [address] Care Team Providers Care Hydraulic Press Servicer Name Role Phone Jamal CARLISLE DO, Robert William Primary Care Provide r Unavailable Desiree Patrick MD Unavailable Farrah Nicole APRN,BROWNFIELD PROGRAM COORDINATOR Unavailable [phone] Bry Echevarria MD Unavailable Jamal CARLISLE DO, Robert William Unavailable Unav Stephani Diaz MD Primary Care Provider Shruti Vergara RN Unavailable Unavailable Bianka Loera CNP Primary Care Provider [phone] Desiree Patrick MD Primary Care P rovider Encounter Details Date Type Department Care Team (Late st Contact Info) Description 09/19/2018 Historical Conversion [facility] Family Medicine [address] [place] [address] Trish Barone, PT Social History Tobacco Use Types Packs/Day Years Used Date Smoking Tobacco: Former Cigarettes 1 18 1 961 - 1978 Smokeless Tobacco: Never Alcohol Use Standard Drinks/Week Comments Yes 12 (1 standard drink = 0.6 oz pu re alcohol) 1-2 beers daily Sex and Gender Information Value Date Recorded Sex Assigned at Not on file Legal Sex Male 6:02 AM HAT LINING PASTER Gender Identity Not on file Sexual Orientation [...] documented in this encounter Progress Notes * Trish Barone, [...] by:Trish Barone PT Oct 12 2018 5:27PM HAT LINING PASTER AMENDMENTS: 1. Patient received 4 feet of green theraband on this date of service. Electronically signed by:Trish Barone PT Oct 12 2018 5:28PM HAT LINING PASTER * Trish Barone, PT - 10/03/2018 12:00 [...] per day with the dogs. He attends [employer] with his 2 times a week. OBJECTIVE: [...] 5/5. Ankle plantar flexion: Right 3+/5, left 5/5measured against manual resistance. Functionally patient is unable [...] physical performance testing. Trish Barone MA, PT #[id number] Electronically signed by:Trish Barone PT Oct 03 2018 1:23PM HAT LINING PASTER * Trish Barone, PT - 09/19/2018 12:00 AM CDT CRISTIAN BLEDSOE : 1945 HX: [id number] DOS: 09/19/2018 REFERRING PROVIDER: Casey Berry D.O. 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 He is currently [...] PATIENT RECEIVED: Patient received 30 minutes of aijw-eq-ygfc evaluation with three or more comorbidities and three or more elements addressed. Clinical presentation is evolving and clinical complexity is moderate. Patient also received canalith repositioning maneuvers on this date. Trish Barone, PT, MA #[id number] Electronically signed by:Trish Barone PT Sep 26 2018 8:37AM HAT LINING PASTER documented in this encounter Plan of Treatment Not on file documented as of this encounter Visit Diagnoses Not on filedocumented in this encounter Care Teams Hydraulic Press Servicer Relationship Specialty Start Date End Date Casey Berry II, DO PCP - General 11/22/06 08/17/19 Stephani Aleman MD PCP - General Family Medicine 08/18/19 09/16/20 Bianka Loera CNP [address] [facility] [address] [place] [phone] PCP - General Nurse Practitioner Family 09/17/2001/10 [place] [address] [place] [address] PCP - General Electrophysiology 02/23/22 03/09/22 Desiree Patrick MD [address] [place] [address] 08/09/17 Farrah Nicole APRN,BROWNFIELD PROGRAM COORDINATOR [address] [place] [address] 08/09/17 Bry Echevarria MD [address] [place] [address] 08/09/17 Casey Berry II, DO 08/09/17 Shruti Vergara RN RN Registered Nurse 08/27/20 documented as of this encounter Additional Source Comments PLEASE NOTE: Replies to this message will not be received.[facility] and [facility]
--- OUTSIDE RECORDS SUMMARY | 2024-07-13 16:20 | XMS_ITS | Encounter Summary ---
Author Organization [email or web address] Address [address] [place] [address] Care Team Providers Care Supplier Quality Manager Name Role Phone Jamal CARLISLE DO, Robert William Primary Care Provide r Unavailable Desiree Patrick MD Unavailable Farrah Nicole APRN,DIRECTOR INTERNAL AUDIT Unavailable Bry Echevarria MD Unavailable [phone] Jamal CARLISLE DO, Robert William Unavailable Unav Stephani Diaz MD Primary Care Provider Shruti Vergara RN Unavailable Unavailable Bianka Loera CNP Primary Care Provider Desiree Patrick MD Primary Care P rovider Encounter Details Date Type Department Care Team (Late st Contact Info) Description 06/23/2018 Historical Conversion [facility] Family Medicine [address] [place] [address] Moon Maloney MD Social History Tobacco Use Types Packs/Day Years Used Date Smoking Tobacco: Former Cigarettes 1 18 1 961 - 1978 Smokeless Tobacco: Never Alcohol Use Standard Drinks/Week Comments Yes 12 (1 standard drink = 0.6 oz pu re alcohol) 1-2 beers daily Sex and Gender Information Value Date Recorded Sex Assigned at Not on file Legal Sex Male 6:02 AM MINE EQUIPMENT DESIGN ENGINEER Gender Identity Not on file Sexual Orientation Not on file Occupation Industry Job Start Date Job End Date retired Not on file Not on file Not on file documented as of this encounter Last Filed Vital Signs Vital Sign Reading Time Taken Comments Blood Pressure 120/62 06/23/2018 12:00 AM MINE EQUIPMENT DESIGN ENGINEER Pulse - - Temperature - - Respiratory Rate - - Oxygen Saturation - - Inhaled Oxygen Concentration - - Weight 93.5 kg (206 lb 2.1 oz) 06/23/2018 12:00 AM MINE EQUIPMENT DESIGN ENGINEER Height - - Body Mass Index 27.2 06/20/2018 8:23 AM MINE EQUIPMENT DESIGN ENGINEER documented in this encounter Functional Status * [...] on filedocumented in this encounter Care Teams Supplier Quality Manager Relationship Specialty Start Date End Date Casey Berry II, DO PCP - General 11/22/06 08/17/19 Stephani Aleman MD PCP - General Family Medicine 08/18/19 09/16/20 Bianka Loera CNP [address] [place] [address] PCP - General Nurse Practitioner Family 09/17/20 7/12/31 Desiree Patrick MD [address] [place] [address] PCP - General Electrophysiology 02/23/22 03/09/22 Desiree Patrick MD [address] [place] [address] 08/09/17 Farrah Nicole APRN,DIRECTOR INTERNAL AUDIT [address] [place] [address] 08/09/17 Bry Echevarria MD [facility] [place] [address] 08/09/17 Casey Berry II, DO 08/09/17 Shruti Vergara RN RN Registered Nurse 08/27/20 documented as of this encounter Additional Source Comments PLEASE NOTE: Replies to this message will not be received.[facility] and [facility]
--- OUTSIDE RECORDS SUMMARY | 2024-07-13 16:20 | XMS_ITS | Encounter Summary ---
Author Organization [employer] Address [address] [place] [address] Care Team Providers Care Deep Tissue Massage Therapist Name Role Phone Jamal CARLISLE DO, Robert William Primary Care Provide r Unavailable Desiree Patrick MD Unavailable Farrah Nicole APRN,JEWEL HOLE CORNERER Unavailable Bry Echevarria MD Unavailable Jamal CARLISLE DO, Robert William Unavailable Unav Stephani Diaz MD Primary Care Provider Shruti Vergara RN Unavailable Unavailable Bianka Loera CNP Primary Care Provider [phone] Desiree Patrick MD Primary Care P rovider Encounter Details Date Type Department Care Team (Late st Contact Info) Description 09/08/2018 Historical Conversion [facility] Family Medicine [address] [place] [address] Casey Berry II, DO Social History Tobacco Use Types Packs/Day Years Used Date Smoking Tobacco: Former Cigarettes 1 18 1 961 - 1978 Smokeless Tobacco: Never Alcohol Use Standard Drinks/Week Comments Yes 12 (1 standard drink = 0.6 oz pu re alcohol) 1-2 beers daily Sex and Gender Information Value Date Recorded Sex Assigned at Not on file Legal Sex Male 6:02 AM BIOMETRICIAN Gender Identity Not on file Sexual Orientation Not on file Occupation Industry Job Start Date Job End Date retired Not on file Not on file Not on file documented as of this encounter Last Filed Vital Signs Vital Sign Reading Time Taken Comments Blood Pressure 122/74 09/08/2018 12:00 AM BIOMETRICIAN Pulse - - Temperature - - Respiratory Rate - - Oxygen Saturation - - Inhaled Oxygen Concentration - - Weight 92.8 kg (204 lb 9.7 oz) 09/08/2018 12:00 AM BIOMETRICIAN Height 184 cm (6' 0.44) 09/08/2018 12:00 AM BIOMETRICIAN Body Mass Index 27.41 09/08/2018 12:00 AM BIOMETRICIAN documented in this encounter Functional Status * [...] on filedocumented in this encounter Care Teams Deep Tissue Massage Therapist Relationship Specialty Start Date End Date Casey Berry II, DO PCP - General 11/22/06 08/17/19 Stephani Aleman MD PCP - General Family Medicine 08/18/19 09/16/20 Bianka Loera, NEEDLEWORKER [address] [place] [phone] PCP - General Nurse Practitioner Family 09/17/20 712/31 Desiree Patrick MD [address] [place] [address] PCP - General Electrophysiology 02/23/22 03/09/22 Desiree Patrick MD [address] [place] [address] 08/09/17 Farrah Nicole APRN,[facility] [address] [place] [address] 08/09/17 Bry Echevarria MD [address] [place] [address] [place] [phone] 08/09/17 Casey Berry II, DO 08/09/17 Shruti Vergara RN RN Registered Nurse 08/27/20 documented as of this encounter Additional Source Comments PLEASE NOTE: Replies to this message will not be received.[facility] and [facility]
--- OUTSIDE RECORDS SUMMARY | 2024-07-13 16:21 | XMS_ITS | Encounter Summary ---
Author Organization [employer] Address [address] [place] [address] Care Team Providers Care Materials Associate Name Role Phone Jamal CARLISLE DO, Robert William Primary Care Provide r Unavailable Desiree Patrick MD Unavailable Farrah Nicole APRN,DIRECTOR SPEECH AND HEARING Unavailable [phone] Bry Echevarria MD Unavailable [phone] Jamal CARLISLE DO, Robert William Unavailable Unav Stephani Diaz MD Primary Care Provider [phone] Shruti Vergara RN Unavailable Unavailable Bianka Loera CNP Primary Care Provider [phone] Desiree Patrick MD Primary Care P rovider Encounter Details Date Type Department Care Team (Late st Contact Info) Description 06/13/2018 Historical Conversion [facility] Family Medicine [address] [place] [address] Social History Tobacco Use Types Packs/Day Years Used Date Smoking Tobacco: Former Cigarettes 1 18 1 961 - 1978 Smokeless Tobacco: Never Alcohol Use Standard Drinks/Week Comments Yes 2 (1 standard drink = 0.6 oz pur e alcohol) 1-2 beers daily Sex and Gender Information Value Date Recorded Sex Assigned at Not on file Legal Sex Male 6:[address] OPERATOR Gender Identity Not on file Sexual [...] documented in this encounter Progress Notes * [facility], GENERICPROVIDER - 11/02/2018 12:00 AM [...] a week. Joan Everett PTA/Kassy Barone PT, [facility]LAY[facility] #[id number] Electronically signed by:Joan Everett PTA Nov 02 2018 2:00PM ROAD ROLLER OPERATOR Straddle Buggy Operator/Recorder Electronically signed by:Trish Barone PT Nov 07 2018 4:43PM ROAD ROLLER OPERATOR * [facility] - 10/26/2018 12:00 AM CDT Balance Center [...] a week. Joan Everett PTA/Kassy Barone PT, [facility] #[id number] Electronically signed by:Joan Everett PTA Oct 28 2018 7:51AM ROAD ROLLER OPERATOR Straddle Buggy Operator/Recorder Electronically signed by:Trish Barone PT Oct 31 2018 7:01PM ROAD ROLLER OPERATOR * [facility] - 09/19/2018 12:00 AM CDT PHYSICAL THERAPY STUDENT NOTE BALANCE EVALUATION CRISTIAN BLEDSOE : 1945 HX: [id number] DOS: 09/19/2018 REFERRING PROVIDER: Casey Berry D.O. 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 He is currently [...] PATIENT RECEIVED: Patient received 30 minutes of njdf-lb-ginb evaluation with three or more comorbidities and three or more elements addressed. Clinical presentation is evolving and clinical complexity is moderate. Patient also received canalith repositioning maneuvers on this date. Lennox LEAHY/Trish Barone, PT #[id number] / lb-12 cc: Casey Berry D.O., [facility] Electronically signed by:Lennox Malagon Sep 20 2018 7:56PM ROAD ROLLER OPERATOR Co-author Electronically signed by:Lennox Malagon Sep 27 2018 8:39AM ROAD ROLLER OPERATOR Co-author Electronically signed by:Trish Barone PT Oct 02 2018 5:18PM ROAD ROLLER OPERATOR documented in this encounter Procedure Notes * [facility] 10/26/2018 12:00 AM CDTAssociated Order(s): ANTICOAGULATION [...] by:Tiffani Carrero RN Oct 26 2018 4:16PM ROAD ROLLER OPERATOR * [facility], GENERICPROVIBRANDO - 10/11/2018 12:00 AM CDTAssociated Order(s): ANTICOAGULATION Anticoagulation [facility] Name: CRISTIAN BLEDSOE : 1945 DOS: 10/11/2018 [...] by:Tiffani Carrero RN Oct 11 2018 3:39PM ROAD ROLLER OPERATOR * [facility], [employer] - 09/07/2018 12:00 AM CSTAssociated Order(s): ANTICOAGULATION Anticoagulation [facility] Name: CRISTIAN BLEDSOE : 1945 DOS: 09/07/2018 [...] by:Tiffani Carrero RN Sep 07 2018 3:31PM ROAD ROLLER OPERATOR * [facility], GENERICPROVIDER - 08/22/2018 12:00 AM CSTAssociated Order(s): ANTICOAGULATION Anticoagulation [facility] Name: CRISTIAN BLEDSOE : 1945 DOS: 08/22/2018 [...] by:Tiffani Carrero RN Aug 22 2018 2:48PM ROAD ROLLER OPERATOR * [facility] GENERICPROVIBRANDO - 07/13/2018 12:00 AM CSTAssociated Order(s): ANTICOAGULATION [...] by:Tiffani Carrero RN Jul 13 2018 2:41PM ROAD ROLLER OPERATOR * [facility] - 06/13/2018 12:00 AM CSTAssociated Order(s): ANTICOAGULATION [...] Deborah Mandel RN; Jun 13 2018 12:37PM ROAD ROLLER OPERATOR documented in this encounter Plan of Treatment Not on file documented as of this encounter Procedures Procedure Name Priority Date/Time Associated Diagnosis Comments ANTICOAGULATION 10/26/2018 ANTICOAGULATION 10/11/2018 ANTICOAGULATION 09/07/2018 ANTICOAGULATION 08/22/2018 ANTICOAGULATION 07/13/2018 ANTICOAGULATION 06/13/2018 documented in this encounter Results * ANTICOAGULATION (10/26/2018) Narrative Procedure Note [facility] - 10/26/2018 12:00 AM CDT Name: CRISTIAN [...] Patient will continue Coumadin at 7.5 mg onWedn, Wednesday and 5 mg all other days with an INR recheck in onemonth, sooner for any changes. Patient verbalizes understanding. Electronically signed by:Tiffani Carrero RN Oct 26 2018 4:16PM ROAD ROLLER OPERATOR [facility] OTHER Fi nal Result * ANTICOAGULATION (10/11/2018) Narrative Procedure Note [facility] - 10/11/2018 12:00 AM CDT Antico[facility] Name: CRISTIAN BLEDSOE : 1945 DOS: 10/11/2018 [...] by:Tiffani Carrero RN Oct 11 2018 3:39PM ROAD ROLLER OPERATOR [facility] OTHER Fi nal Result * ANTICOAGULATION (09/07/2018) Narrative Procedure [facility] - 09/07/2018 12:00 AM CST Anticoagulation [facility] Name: CRISTIAN BLEDSOE : 1945 DOS: 09/07/2018 [...] any changes. Patient verbalizes understanding. Electronically signed by:Tiffnai Carrero RN Sep 07 2018 3:31PM ROAD ROLLER OPERATOR [facility] OTHER Fi nal Result * ANTICOAGULATION (08/22/2018) Narrative Procedure [facility] - 08/22/2018 12:00 AM CST Anticoagulation [facility] Name: CRISTIAN BLEDSOE : 1945 DOS: 08/22/2018 [...] two weeks.Patient verbalizes understanding. Electronically signed by:Tiffani Carreor RN Aug 22 2018 2:48PM ROAD ROLLER OPERATOR [facility] OTHER Fi nal Result * ANTICOAGULATION (07/13/2018) Narrative Procedure Note [facility] - 07/13/2018 12:00 AM CST Anticoagulation [facility] Name: CRISTIAN BLEDSOE : 1945 DOS: 07/13/2018 [...] by:Tiffani Carrero RN Jul 13 2018 2:41PM ROAD ROLLER OPERATOR [facility] OTHER Fi nal Result * ANTICOAGULATION (06/13/2018) Narrative Procedure Note [facility], [facility] - 06/13/2018 12:00 AM CST ACC [...] Deborah Mandel RN; Jun 13 2018 12:37PM ROAD ROLLER OPERATOR [facility] OTHER Fi nal Result documented in this encounter Visit Diagnoses Not on filedocumented in this encounter Care Teams Materials Associate Relationship Specialty Start Date End Date Casey Berry II, DO PCP - General 11/22/06 08/17/19 Stephani Aleman MD PCP - General Family Medicine 08/18/19 09/16/20 Bianka Loera CNP [address] [address] [place] [phone] PCP - General Nurse Practitioner Family 09/17/2001/10 Desiree Patrick MD [address] [facility] [place] [phone] PCP - General Electrophysiology 02/23/22 03/09/22 Desiree Patrick MD [address] [place] [address] 08/09/17 Farrah Nicole APRN,DIRECTOR SPEECH AND HEARING [address] [place] [address] 08/09/17 Bry Echevarria MD [address] [place] [address] 08/09/17 Casey Berry II, DO 08/09/17 Shruti Vergara RN RN Registered Nurse 08/27/20 documented as of this encounter Additional Source Comments PLEASE NOTE: Replies to this message will not be received.[facility], [facility]
--- OUTSIDE RECORDS SUMMARY | 2024-07-13 16:21 | XMS_ITS | Encounter Summary ---
Author Organization [employer] Address [address] [place] [address] Care Team Providers Care Miner Name Role Phone Jamal CARLISLE DO, Robert William Primary Care Provide r Unavailable Desiree Patrick MD Unavailable Farrah Nicole APRN,VAN DRIVER Unavailable Bry Echevarria MD Unavailable [phone] Jamal CARLISLE DO, Robert William Unavailable Unav Stephani Diaz MD Primary Care Provider Shruti Vergara RN Unavailable Unavailable Bianka Loera CNP Primary Care Provider Desiree Patrick MD Primary Care P rovider Encounter Details Date Type Department Care Team (Late st Contact Info) Description 07/01/2017 Historical Conversion [facility] Family Medicine [address] [place] [address] Bry Echevarria MD [address] [place] [address] Social History Tobacco Use Types Packs/Day Years Used Date Smoking Tobacco: Former Cigarettes 1 18 1 961 - 1978 Smokeless Tobacco: Never Alcohol Use Standard Drinks/Week Comments Yes 2 (1 standard drink = 0.6 oz pur e alcohol) 1-2 beers daily Sex and Gender Information Value Date Recorded Sex Assigned at Not on file Legal Sex Male 6:02 AM REVENUE DIRECTOR Gender Identity Not on file Sexual Orientation [...] documented in this encounter Progress Notes * Bry Echevarria [...] ap pointment with the anticoagulation clinic in [facility] on July 09, 2017.Follow[facility] [place] [facility]. The medicine list was reconciled. History of Present Illness Mr Carroll is a 71-year-old white male who comes to my on-call internal medicine clinic today forfollow-up of her recent hospitalization. His primary care physician is Dr. Berry. The patient was hospitalized in [place] last week and he underwent a cardioversion with the dofetilide. He is now onthat medication twice a day. His INR was slightly elevated at 3.2 when he was up in [place]. He was told to come in today for an INR check. He has not had any problems with bleeding. We did check his anticoagulation and his INR was therapeutic at 2.8. He will follow-up with the anticoagulation clinic in [facility] in 8 days and he will have [...] in atrial fibrillation.He is following up with [place] cardiology in 1 month. Allergies 1. Penicillins 2. Sulfa Drugs Vitals Vital Signs Recorded: [id number] 02:41PM Systolic 136, LUE, Sitting Diastolic 70, [...] questions appropriately. Results/Data Results, Free Text - [facility]: is therapeutic at 2.8. Signatures Electronically signed by : Bry Echevarria M.D.; Jul 01 2017 3:31PM REVENUE DIRECTOR (Author) documented in this encounter Plan of Treatment Not on file documented as of this encounter Visit Diagnoses Not on filedocumented in this encounter Care Teams Miner Relationship Specialty Start Date End Date Casey Berry II, DO PCP - General 11/22/06 08/17/19 Stephani Aleman MD PCP - General Family Medicine 08/18/19 09/16/20 Bianka Loera FINISH SPECIALIST [address] [place] [phone] PCP - General Nurse Practitioner Family 09/17/20 712/31 Desiree Patrick MD [address] [place] [address] PCP - General Electrophysiology 02/23/22 03/09/22 Desiree Patrick MD [address] [place] [address] 08/09/17 Farrah Nicole APRN,VAN DRIVER [address] [place] [address] 08/09/17 Bry Echevarria MD [address] [place] [address] 08/09/17 Casey Berry II, DO 08/09/17 Shruti Vergara RN RN Registered Nurse 08/27/20 documented as of this encounter Additional Source Comments PLEASE NOTE: Replies to this message will not be received.[facility] and [facility]
--- OUTSIDE RECORDS SUMMARY | 2024-07-13 16:21 | XMS_ITS | Encounter Summary ---
Author Organization [employer] Address [address] [place] [address] Care Team Providers Care Marine Equipment Preservation Inspector Name Role Phone Jamal CARLISLE DO, Robert William Primary Care Provide r Unavailable Desiree Patrick MD Unavailable Farrah Nicole APRN,GAS DISTRIBUTION SUPERVISOR Unavailable Bry Echevarria MD Unavailable Jamal CARLISLE DO, Robert William Unavailable Unav Stephani Diaz MD Primary Care Provider Shruti Vergara RN Unavailable Unavailable Bianka Loera CNP Primary Care Provider Desiree Patrick MD Primary Care P rovider Encounter Details Date Type Department Care Team (Late st Contact Info) Description 08/31/2017 Historical Conversion [facility] Family Medicine [address] [facility] [place] [address] Desiree Rubi PAC [address] [place] [address] Social History Tobacco Use Types Packs/Day Years Used Date Smoking Tobacco: Former Cigarettes 1 18 1 961 - 1978 Smokeless Tobacco: Never Alcohol Use Standard Drinks/Week Comments Yes 2 (1 standard drink = 0.6 oz pur e alcohol) 1-2 beers daily Sex and Gender Information Value Date Recorded Sex Assigned at Not on file Legal Sex Male 6:02 AM MANAGER INDUSTRIAL Gender Identity Not on file Sexual Orientation Not on file Occupation Industry Job Start Date Job End Date retired Not on file Not on file Not on file documented as of this encounter Last Filed Vital Signs Vital Sign Reading Time Taken Comments Blood Pressure 112/60 08/31/2017 12:00 AM MANAGER INDUSTRIAL Pulse - - Temperature - - Respiratory Rate - - Oxygen Saturation - - Inhaled Oxygen Concentration - - Weight 95.9 kg (211 lb 6.7 oz) 08/31/2017 12:00 AM MANAGER INDUSTRIAL Height - - Body Mass Index 27.89 07/27/2017 2:42 PM MANAGER INDUSTRIAL documented in this encounter Functional Status * [...] on filedocumented in this encounter Care Teams Marine Equipment Preservation Inspector Relationship Specialty Start Date End Date Casey Berry II, DO PCP - General 11/22/06 08/17/19 Stephani Aleman MD PCP - General Family Medicine 08/18/19 09/16/20 Bianka Loera, HOME AND SCHOOL VISITOR [address] [place] [address] PCP - General Nurse Practitioner Family 09/17/2001/10 Desiree Patrick MD [address] [place] [address] PCP - General Electrophysiology 02/23/22 03/09/22 Desiree Patrick MD [address] [place] [address] 08/09/17 Farrah Nicole APRN,GAS DISTRIBUTION SUPERVISOR [address] [place] [address] 08/09/17 Bry Echevarria MD [address] [place] [phone] 08/09/17 Casey Berry II, DO 08/09/17 Shruti Vergara, RN RN Registered Nurse 08/27/20 documented as of this encounter Additional Source Comments PLEASE NOTE: Replies to this message will not be received.[facility] and [facility]
--- OUTSIDE RECORDS SUMMARY | 2024-07-13 16:21 | XMS_ITS | Encounter Summary ---
Author Organization [employer] Address [address] [place] [address] Care Team Providers Care Fabric Worker Name Role Phone Jamal CARLISLE DO, Robert William Primary Care Provide r Unavailable Desiree Patrick MD Unavailable Farrah Nicole APRN,TRANSPLANT NURSE PRACTITIONER Unavailable Bry Echevarria MD Unavailable Jamal CARLISLE DO, Robert William Unavailable Unav Stephani Diaz MD Primary Care Provider hSruti Vergara RN Unavailable Unavailable Bianka Loera CNP Primary Care Provider Desiree Patrick MD Primary Care P rovider Encounter Details Date Type Department Care Team (Late st Contact Info) Description 09/07/2017 Historical Conversion [facility] Family Medicine [address] [place] [address] Casey Berry II, DO Social History Tobacco Use Types Packs/Day Years Used Date Smoking Tobacco: Former Cigarettes 1 18 1 961 - 1978 Smokeless Tobacco: Never Alcohol Use Standard Drinks/Week Comments Yes 2 (1 standard drink = 0.6 oz pur e alcohol) 1-2 beers daily Sex and Gender Information Value Date Recorded Sex Assigned at Not on file Legal Sex Male 6:02 AM CLINICAL INFORMATICS SPECIALIST Gender Identity Not on file Sexual Orientation [...] Bilateral leg pain History of Present Illness Ihyfgry-obk-rbsl-old male who states that he was shoveling [...] TAKE 1 CAPSULE EVERY 12 HOURS; Last Rx:[id number] Ordered 2. Lisinopril 10 MG Oral Tablet; TAKE ONE TABLET DAILY; Therapy: 18Oct2017 to Recorded 3. Metoclopramide HCl - 5 MG Oral Tablet; TAKE 1 TABLET BY MOUTH THREE TIMES DAILY WITH MEALS NEEDED; Therapy: 10Sep2014 to (Evaluate:29Oct2017) Requested for: 48Oiy1488; Last Rx:[id number] Ordered 4. Polyethylene Glycol 3350 Oral Powder; take 17 grams in 8 ounces of fluid once daily as needed for constipation; Therapy: 67Ysr2331 to (Evaluate:27May2018); Last Rx:[id number] Ordered 5. Triamcinolone Acetonide 0.1 % External Lotion; APPLY 2-3 TIMES DAILY TO AFFECTED AREA(S); Therapy: 84Yld7287 to (Last Rx:[id number]) Requested for: 96Fxu2613 Ordered 6. Warfarin Sodium 5 MG Oral Tablet; Take as directed by ACC; Therapy: 74Nii6529 to (Evaluate:10Sep2018) Requested for: 15Sep2017 Recorded Allergies [...] Casey Berry DO; Oct 25 2017 10:02AM CLINICAL INFORMATICS SPECIALIST documented in this encounter H&P Notes * Casey Berry II, DO - 09/07/2017 12:00 AM CST Assessment 1. [...] healthy by no longer smoking.; Status:Complete; Done: [id number] Reason For Visit Routine history and physical. [...] DAILY; Therapy: 14Apr2017 to (Evaluate:27May2018) Requested for: 81Oht5535; Last Rx:[id number] Ordered 3. Dofetilide 250 MCG Oral Capsule; TAKE 1 CAPSULE EVERY 12 HOURS; Last Rx:[id number] Ordered 4. Metoclopramide HCl - 5 MG Oral Tablet; TAKE 1 TABLET BY MOUTH THREE TIMES DAILY WITH MEALS NEEDED; Therapy: 10Sep2014 to (Evaluate:29Oct2017) Requested for: 10Osy8997; Last Rx:[id number] Ordered 5. Metoprolol Tartrate 50 MG Oral Tablet; TAKE 1/2 TABLET TWICE DAILY; Therapy: (Recorded:[id number]) to Recorded 6. Polyethylene Glycol 3350 Oral Powder; take 17 grams in 8 ounces of fluid once daily as needed for constipation; Therapy: 79Udm7239 to (Evaluate:27May2018); Last Rx:[id number] Ordered 7. Warfarin Sodium 5 MG Oral Tablet; Take as directed by ACC; Therapy: 62Tvk5472 to (Evaluate:28May2018) Requested for: 02Jun2017 Recorded Allergies 1. Penicillins 2. Sulfa Drugs PENICILLIN AND SULFA. Immunizations Prevnar in 2016. Pneumovax in 2009. Tetanus in 2013. Shingles in 2009. Vitals Recorded: 02Pub0088 08:20AM Systolic 144 Diastolic 85 Heart Rate [...] Casey Berry DO; Sep 20 2017 7:51AM CLINICAL INFORMATICS SPECIALIST documented in this encounter Plan of Treatment Not on file documented as of this encounter Visit Diagnoses Not on filedocumented in this encounter Care Teams Fabric Worker Relationship Specialty Start Date End Date Casey Berry II, DO PCP - General 11/22/06 08/17/19 Stephani Aleman MD PCP - General Family Medicine 08/18/19 09/16/20 Bianka Loera CNP [address] [place] [address] PCP - General Nurse Practitioner Family 09/17/20 7/12/31 Desiree Patrick MD [address] [place] [address] PCP - General Electrophysiology 02/23/22 03/09/22 Desiree Patrick MD [address] [place] [address] 08/09/17 Farrah Nicole APRN,TRANSPLANT NURSE PRACTITIONER [address] [place] [address] 08/09/17 Bry Echevarria MD [facility] [address] 08/09/17 Casey Berry II, DO 08/09/17 Shruti Vergara RN RN Registered Nurse 08/27/20 documented as of this encounter Additional Source Comments PLEASE NOTE: Replies to this message will not be received.[facility]
--- OUTSIDE RECORDS SUMMARY | 2024-07-13 16:21 | XMS_ITS | Encounter Summary ---
Author Organization [employer] Address [address] [place] [address] Care Team Providers Care Monogram And Letter Paster Name Role Phone Jamal CARLISLE DO, Robert William Primary Care Provide r Unavailable Desiree Patrick MD Unavailable Farrah Nicole APRN,MUSIC VIDEO DIRECTOR Unavailable Bry Echevarria MD Unavailable Jamal CARLISLE DO, Robert William Unavailable Unav Stephani Diaz MD Primary Care Provider Shruti Vergara RN Unavailable Unavailable Bianka Loera CNP Primary Care Provider Desiree Patrick MD Primary Care P rovider Encounter Details Date Type Department Care Team (Late st Contact Info) Description 09/07/2017 Historical Conversion [facility] Family Medicine [address] [place] [address] Casey Berry II, DO Social History Tobacco Use Types Packs/Day Years Used Date Smoking Tobacco: Former Cigarettes 1 18 1 961 - 1978 Smokeless Tobacco: Never Alcohol Use Standard Drinks/Week Comments Yes 2 (1 standard drink = 0.6 oz pur e alcohol) 1-2 beers daily Sex and Gender Information Value Date Recorded Sex Assigned at Not on file Legal Sex Male 6:02 AM PHLEBOTOMY COORDINATOR Gender Identity Not on file Sexual Orientation Not on file Occupation Industry Job Start Date Job End Date retired Not on file Not on file Not on file documented as of this encounter Last Filed Vital Signs Vital Sign Reading Time Taken Comments Blood Pressure 144/85 09/07/2017 12:00 AM PHLEBOTOMY COORDINATOR Pulse - - Temperature - - Respiratory Rate - - Oxygen Saturation - - Inhaled Oxygen Concentration - - Weight 94.3 kg (207 lb 14.3 oz) 018 12:00 AM PHLEBOTOMY COORDINATOR Height 185.5 cm (6' 1.03) 09/07/2017 1 2:00 AM PHLEBOTOMY COORDINATOR Body Mass Index 27.4 09/07/2017 12:00 AM PHLEBOTOMY COORDINATOR documented in this encounter Functional Status * [...] on filedocumented in this encounter Care Teams Monogram And Letter Paster Relationship Specialty Start Date End Date Casey Berry II, DO PCP - General 11/22/06 08/17/19 Stephani Aleman MD PCP - General Family Medicine 2/7/20 3/8/21 Bianka Loera, SENIOR SALES CONSULTANT [address] [place] [phone] PCP - General Nurse Practitioner Family 09/17/20 712/31 Desiree Patrick MD [address] [place] [address] PCP - General Electrophysiology 02/23/22 03/09/22 Desiree Patrick MD [address] [place] [address] 08/09/17 Farrah Nicole APRN,MUSIC VIDEO DIRECTOR [address] [place] [address] 08/09/17 Bry Echevarria MD [facility] [place] [phone] 08/09/17 Casey Berry II, DO 08/09/17 Shruti Vergara, RN RN Registered Nurse 08/27/20 documented as of this encounter Additional Source Comments PLEASE NOTE: Replies to this message will not be received.[facility] and [facility]
--- OUTSIDE RECORDS SUMMARY | 2024-07-13 16:21 | XMS_ITS | Encounter Summary ---
Author Organization [employer] Address [address] [place] [address] Care Team Providers Care Aviation Technician Aircraft Name Role Phone Jamal CARLISLE DO, Robert William Primary Care Provide r Unavailable Desiree Patrick MD Unavailable Farrah Nicole APRN,BUILDING CONSTRUCTION CONTRACTOR Unavailable Bry Echevarria MD Unavailable [phone] Jamal CARLISLE DO, Robert William Unavailable Unav Stephani Diaz MD Primary Care Provider Shruti Vergara RN Unavailable Unavailable Bianka Loera CNP Primary Care Provider eDsiree Patrick MD Primary Care P rovider Encounter Details Date Type Department Care Team (Late st Contact Info) Description 07/01/2017 Historical Conversion [facility] [address] [facility] [place] [address] Bry Echevarria MD [address] [place] [address] Social History Tobacco Use Types Packs/Day Years Used Date Smoking Tobacco: Former Cigarettes 1 18 1 961 - 1978 Smokeless Tobacco: Never Alcohol Use Standard Drinks/Week Comments Yes 2 (1 standard drink = 0.6 oz pur e alcohol) 1-2 beers daily Sex and Gender Information Value Date Recorded Sex Assigned at Not on file Legal Sex Male 6:02 AM GENERAL PARTNER Gender Identity Not on file Sexual Orientation Not on file Occupation Industry Job Start Date Job End Date retired Not on file Not on file Not on file documented as of this encounter Last Filed Vital Signs Vital Sign Reading Time Taken Comments Blood Pressure 136/70 07/01/2017 12:00 AM GENERAL PARTNER Pulse - - Temperature - - Respiratory Rate - - Oxygen Saturation - - Inhaled Oxygen Concentration - - Weight 97.6 kg (215 lb 2.7 oz) 07/01/2017 12:00 AM GENERAL PARTNER Height - - Body Mass Index 28.39 06/21/2017 2:27 PM GENERAL PARTNER documented in this encounter Functional Status * [...] on filedocumented in this encounter Care Teams Aviation Technician Aircraft Relationship Specialty Start Date End Date Casey Berry II, DO PCP - General 11/22/06 08/17/19 Stephani Aleman MD PCP - General Family Medicine 08/18/19 09/16/20 Bianka Loera CNP [address] [place] [address] PCP - General Nurse Practitioner Family 09/17/20 712/31 Desiree Patrick MD [address] [place] [address] PCP - General Electrophysiology 02/23/22 03/09/22 Desiree Patrick MD [address] [place] [address] 08/09/17 Farrah Nicole APRN,BUILDING CONSTRUCTION CONTRACTOR [address] [place] [address] 08/09/17 Bry Echevarria MD [address] [place] [phone] 08/09/17 Casey Berry II, DO 08/09/17 Shruti Vergara, RN RN Registered Nurse 08/27/20 documented as of this encounter Additional Source Comments PLEASE NOTE: Replies to this message will not be received.[facility] and [facility]
--- OUTSIDE RECORDS SUMMARY | 2024-07-13 16:21 | XMS_ITS | Encounter Summary ---
Author Organization [employer] Address [address] [place] [address] Care Team Providers Care Dumpling Machine Operator Name Role Phone Jamal CARLISLE DO, Robert William Primary Care Provide r Unavailable Desiree Patrick MD Unavailable Farrah Nicole APRN,MARBLE MECHANIC HELPER Unavailable Bry Echevarria MD Unavailable Jamal CARLISLE DO, Robert William Unavailable Unav Stephani Diaz MD Primary Care Provider Shruti Vergara RN Unavailable Unavailable Bianka Loera CNP Primary Care Provider Desiree Patrick MD Primary Care P rovider Encounter Details Date Type Department Care Team (Late st Contact Info) Description 03/01/2018 Historical Conversion [facility] Family Medicine [address] [facility] [place] [address] Desiree Rubi PAC [address] [place] [address] Social History Tobacco Use Types Packs/Day Years Used Date Smoking Tobacco: Former Cigarettes 1 18 1 961 - 1978 Smokeless Tobacco: Never Alcohol Use Standard Drinks/Week Comments Yes 2 (1 standard drink = 0.6 oz pur e alcohol) 1-2 beers daily Sex and Gender Information Value Date Recorded Sex Assigned at Not on file Legal Sex Male 6:02 AM HEARING AID MECHANIC Gender Identity Not on file Sexual Orientation [...] Body Mass Index 26.81 09/07/2017 12:00 AM HEARING AID MECHANIC documented in this encounter Functional Status * [...] documented in this encounter Progress Notes * Desiree Rubi - 03/01/2018 12:00 AM CDT UROLOGY CRISTIAN BLEDSOE : 1945 HX: [id number] DOS: 03/01/2018 HISTORY OF PRESENT ILLNESS: This [...] the prostate involving 2%. 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 He [...] think he normally sees Farrah Jacobo APRN, ALEX, at the [facility], so we will try to reach [...] meantime we will check with Cardiology in [place] about the option of Viagra or Cialis [...] 24 cc: Jose Winslow M.D./Radiation Oncology - [facility] cc: Casey Berry D.O./[facility] cc: Moon Maloney M.D./[facility] Electronically signed by:Desiree Rubi PA-C Mar 04 2018 1:27PM HEARING AID MECHANIC documented in this encounter Plan of Treatment Not on file documented as of this encounter Visit Diagnoses Not on filedocumented in this encounter Care Teams Dumpling Machine Operator Relationship Specialty Start Date End Date Casey Berry II, DO PCP - General 11/22/06 08/17/19 Stephani Aleman MD PCP - General Family Medicine 08/18/19 09/16/20 Bianka Loera PRINTED CIRCUIT BOARD ASSEMBLY REPAIRER [address] [place] [phone] PCP - General Nurse Practitioner Family 09/17/2001/10 Desiree Patrick MD [address] [place] [address] PCP - General Electrophysiology 02/23/22 03/09/22 Desiree Patrick MD [address] [place] [address] 08/09/17 Farrah Nicole APRN,MARBLE MECHANIC HELPER [address] [place] [address] 08/09/17 Bry Echevarria MD [address] [place] [address] [place] [address] 08/09/17 Casey Berry II, DO 08/09/17 Shruti Vergara RN RN Registered Nurse 08/27/20 documented as of this encounter Additional Source Comments PLEASE NOTE: Replies to this message will not be received.[facility] and [facility]
--- OUTSIDE RECORDS SUMMARY | 2024-07-13 16:21 | XMS_ITS | Encounter Summary ---
Author Organization [employer] Address [address] [place] [address] Care Team Providers Care Toddler Nanny Name Role Phone Jamal CARLISLE DO, Robert William Primary Care Provide r Unavailable Desiree Patrick MD Unavailable Farrah Nicole APRN,TIPPLE MECHANIC Unavailable [phone] Bry Echevarria MD Unavailable [phone] Jamal CARLISLE DO, Robert William Unavailable Unav Stephani Diaz MD Primary Care Provider Shruti Vergara RN Unavailable Unavailable Bianka Loera CNP Primary Care Provider Desiree Patrick MD Primary Care P rovider Encounter Details Date Type Department Care Team (Late st Contact Info) Description 06/13/[address] [facility] [address] [facility] [place] [address] Bry Echevarria MD [address] [place] [address] Social History Tobacco Use Types Packs/Day Years Used Date Smoking Tobacco: Former Cigarettes 1 18 1 961 - 1978 Smokeless Tobacco: Never Alcohol Use Standard Drinks/Week Comments Yes 2 (1 standard drink = 0.6 oz pur e alcohol) 1-2 beers daily Sex and Gender Information Value Date Recorded Sex Assigned at Not on file Legal Sex Male 6:02 AM HYDROPULPER OPERATOR Gender Identity Not on file Sexual [...] AM CST CRISTIAN BLEDSOE : 1945 HX: [id number] DOS: 06/13/2018 SUBJECTIVE: Patient is a 72-year-old [...] Jose Winslow in Radiation Oncology at the [facility]. He has not recently [...] Prostate cancer, status post treatment with radiation. Mertzon to be under good control at this [...] later. Bry Echevarria M.D./ekg-6 cc: Yury Berry [facility] cc: Elder Maloney MD/[facility] cc: Mare Rubi PA-C/[facility] cc: Jose Winslow MD/[facility] Electronically signed by:Bry Echevarria M.D. Jun 16 2018 2:16PM HYDROPULPER OPERATOR documented in this encounter Plan of Treatment Not on file documented as of this encounter Visit Diagnoses Not on filedocumented in this encounter Care Teams Toddler Nanny Relationship Specialty Start Date End Date Casey Berry II, DO PCP - General 11/22/06 08/17/19 Stephani Aleman MD PCP - General Family Medicine 08/18/19 09/16/20 Bianka Loera CNP [address] [facility] [address] [place] [address] PCP - General Nurse Practitioner Family 09/17/2001/10 [place] [address] [place] [address] PCP - General Electrophysiology 02/23/22 03/09/22 Desiree Patrick MD [address] [facility] [place] [address] 08/09/17 Farrah Nicole APRN,TIPPLE MECHANIC [address] [facility] [place] [address] 08/09/17 Bry Echevarria MD [address] [place] [address] [facility] [place] [address] 08/09/17 Casey Berry II, DO 08/09/17 Shruti Vergara RN RN Registered Nurse 08/27/20 documented as of this encounter Additional Source Comments PLEASE NOTE: Replies to this message will not be received.[facility] and [facility]
--- OUTSIDE RECORDS SUMMARY | 2024-07-13 16:21 | XMS_ITS | Encounter Summary ---
Author Organization [employer] Address [address] [place] [address] Care Team Providers Care Bushel Worker Name Role Phone Jamal CARLISLE DO, Robert William Primary Care Provide r Unavailable Desiree Patrick MD Unavailable Farrah Nicole APRN,PRINCIPAL ENGINEER Unavailable Bry Echevarria MD Unavailable [phone] Jamal CARLISLE DO, Robert William Unavailable Unav Stephani Diaz MD Primary Care Provider Shruti Vergara RN Unavailable Unavailable Bianka Loera CNP Primary Care Provider Desiree Patrcik MD Primary Care P rovider Encounter Details Date Type Department Care Team (Late st Contact Info) Description 07/01/2017 Historical Conversion [facility] Family Medicine [address] [place] [id number] Social History Tobacco Use Types Packs/Day Years Used Date Smoking Tobacco: Former Cigarettes 1 18 1 961 - 1978 Smokeless Tobacco: Never Alcohol Use Standard Drinks/Week Comments Yes 2 (1 standard drink = 0.6 oz pur e alcohol) 1-2 beers daily Sex and Gender Information Value Date Recorded Sex Assigned at Not on file Legal Sex Male 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 Name: CRISTIAN BLEDSOE : 1945 DOS: [...] by:Tiffani Carrero RN May 17 2018 11:41AM COLLET MAKING MACHINE OPERATOR * [facility], GENERICPROVIDER - 04/26/2018 12:00 AM CDTAssociated Order(s): ANTICOAGULATION Anticoagulation [facility] Name: CRISTIAN BLEDSOE : 1945 DOS: [...] by:Tiffani Carrero RN Apr 26 2018 4:12PM COLLET MAKING MACHINE OPERATOR * [facility], GENERICPROVIDER - 03/22/2018 12:00 AM CDTAssociated Order(s): ANTICOAGULATION Anticoagulation Clinic [facility] Name: CRISTIAN BLEDSOE : 1945 DOS: 03/22/2018 Cristian is a patient of Dr. Berry. He is here today for anticoagulation assessment and INR check for a diagnosis of atrial fibrillation. Patient [...] by:Tiffani Carrero RN Mar 22 2018 3:06PM COLLET MAKING MACHINE OPERATOR * [facility], [employer] - 02/23/2018 12:00 AM CDTAssociated Order(s): ANTICOAGULATION Anticoagulation Clinic [...] by:Tiffani Carrero RN Feb 23 2018 10:29AM COLLET MAKING MACHINE OPERATOR * [facility] - 02/09/2018 12:00 AM CDTAssociated Order(s): ANTICOAGULATION Anticoagulation [facility] Name: CRISTIAN BLEDSOE : 1945 DOS: 02/09/2018 Cristian is a patient of Dr. Berry. He is here today for anticoagulation assessment and INR check for adiagnosis of atrial fibrillation. Patient states that he has been feeling well. He denies any medication changes since his last INR check. Patient reports that he recently took a trip to [place] and forgot to take his Coumadin during the weekend. INR tested today is 1.8 with the recommended range of 2.0 to 3.0. Patient will continue Coumadin at 7.5 mg on Wednesdays and 5 mg all other days withan INR recheck in two weeks. Patient verbalizes understanding. Electronically signed by:Tiffani Carrero RN Feb 09 2018 4:06PM COLLET MAKING MACHINE OPERATOR * [facility], [facility] - 07/01/2017 12:00 AM CSTAssociated Order(s): ANTICOAGULATION Name: CRISTIAN BLEDSOE : 1945 DOS: 07/01/2017 Cristian is a patient of Dr. Berry. He is here today for anticoagulation assessment and INR check for adiagnosis of atrial fibrillation. Patient was seen in clinic by Dr. Echevarria today post cardioversion. Patient had a cardioversion on 06/24 at [facility] and he reports it went well. He [...] by:Theresa Crowder RN Jul 01 2017 5:02PM COLLET MAKING MACHINE OPERATOR documented in this encounter Plan of Treatment Not on file documented as of this encounter Procedures Procedure Name Priority Date/Time Associated Diagnosis Comments ANTICOAGULATION 06/14/2018 ANTICOAGULATION 05/17/2018 ANTICOAGULATION 04/26/2018 ANTICOAGULATION 03/22/2018 ANTICOAGULATION 02/23/2018 ANTICOAGULATION 02/09/2018 ANTICOAGULATION 07/01/2017 documented in this encounter Results * ANTICOAGULATION (06/14/2018) Narrative Procedure Note [facility] - 06/14/2018 12:00 AM CST Name: CRISTIAN [...] Patient will continue Coumadin at 7.5 mg onWedn and 5 mg all other days with an INR recheck in one month,sooner for any changes. Patient verbalizes understanding. Electronically signed by:Tiffani Carrero RN Jun 14 2018 7:43PM COLLET MAKING MACHINE OPERATOR [facility] OTHER Fi nal Result * ANTICOAGULATION (05/17/2018) Narrative Procedure Note [facility] - 05/17/2018 12:00 AM CST Anticoagulation Clinic [facility] Name: [...] by:Tiffani Carrero RN May 17 2018 11:41AM COLLET MAKING MACHINE OPERATOR [facility] OTHER Fi nal Result * ANTICOAGULATION (04/26/2018) Narrative Procedure Note [facility] - 04/26/2018 12:00 AM CDT Anticoagulation [facility] Name: CRISTIAN BLEDSOE : 1945 DOS: [...] Patient received his High Dose Fluzone for 2017 during his appointmenttoday. Electronically signed by:Tiffani Carrero RN Apr 26 2018 4:12PM COLLET MAKING MACHINE OPERATOR [facility] OTHER Fi nal Result * ANTICOAGULATION (03/22/2018) Narrative Procedure Note [facility] - 03/22/2018 12:00 AM CDT Anticoagulation [facility] Name: CRISTIAN BLEDSOE : 1945 DOS: [...] by:Tiffani Carrero RN Mar 22 2018 3:06PM COLLET MAKING MACHINE OPERATOR [facility] OTHER Fi nal Result * ANTICOAGULATION (02/23/2018) Narrative Procedure Note [facility] - 02/23/2018 12:00 AM CDT Anticoagulation [facility] Name: CRISTIAN BLEDSOE : 1945 DOS: [...] by:Tiffani Carrero RN Feb 23 2018 10:29AM COLLET MAKING MACHINE OPERATOR [facility] OTHER Fi nal Result * ANTICOAGULATION (02/09/2018) Narrative Procedure Note [facility] - 02/09/2018 12:00 AM CDT Anticoagulation [facility] Name: CRISTIAN BLEDSOE : 1945 DOS: [...] by:Tiffani Carrero RN Feb 09 2018 4:06PM COLLET MAKING MACHINE OPERATOR [facility] OTHER Fi nal Result * ANTICOAGULATION (07/01/2017) Narrative Procedure Note [facility] - 07/01/2017 12:00 AM CST Name: CRISTIAN BLEDSOE : 1945 DOS: 07/01/2017 Cristian is a patient of Dr. Berry. He is here today for anticoagulationassessment and INR check for a diagnosis of atrial fibrillation. Patientwas seen in clinic by Dr. Echevarria today post cardioversion. Patient had acardioversion on 06/24 at [facility] and he reports it went well. Hestates [...] by:Theresa Crowder RN Jul 01 2017 5:02PM COLLET MAKING MACHINE OPERATOR [facility] OTHER Fi nal Result documented in this encounter Visit Diagnoses Not on filedocumented in this encounter Care Teams Bushel Worker Relationship Specialty Start Date End Date Casey Berry II, DO PCP - General 11/22/06 08/17/19 Stephani Aleman MD PCP - General Family Medicine 08/18/19 09/16/20 Bianka Loera WINDOW FRAMER [address] [place] [address] PCP - General Nurse Practitioner Family 09/17/20 712/31 Desiree Patrick MD [address] [place] [address] PCP - General Electrophysiology 02/23/22 03/09/22 Desiree Patrick MD [address] [place] [address] 08/09/17 Farrah Nicole APRN,PRINCIPAL ENGINEER [address] [place] [address] 08/09/17 Bry Echevarria MD [address] [place] [address] [place] [address] 08/09/17 Casey Berry II, DO 08/09/17 Shruti Vergara RN RN Registered Nurse 08/27/20 documented as of this encounter Additional Source Comments PLEASE NOTE: Replies to this message will not be received.[facility] and [facility]
--- OUTSIDE RECORDS SUMMARY | 2024-07-13 16:21 | XMS_ITS | Encounter Summary ---
Author Organization [employer] Address [address] [place] [address] Care Team Providers Care Associate Sales Representative Name Role Phone Jamal CARLISLE DO, Robert William Primary Care Provide r Unavailable Desiree Patrick MD Unavailable Farrah Nicole APRN,SUPERVISOR STRIPPING Unavailable Bry Echevarria MD Unavailable Jamal CARLISLE DO, Robert William Unavailable Unav Stephani Diaz MD Primary Care Provider Shruti Vergara RN Unavailable Unavailable Bianka Loera CNP Primary Care Provider [phone] Desiree Patrick MD Primary Care P rovider Encounter Details Date Type Department Care Team (Late st Contact Info) Description 10/18/[address] [facility] Family Medicine [address] [place] [id number] Casey Berry II, DO Social History Tobacco Use Types Packs/Day Years Used Date Smoking Tobacco: Former Cigarettes 1 18 1 961 - 1978 Smokeless Tobacco: Never Alcohol Use Standard Drinks/Week Comments Yes 2 (1 standard drink = 0.6 oz pur e alcohol) 1-2 beers daily Sex and Gender Information Value Date Recorded Sex Assigned at Not on file Legal Sex Male 6:02 AM ENDING MACHINE OPERATOR Gender Identity Not on file [...] Body Mass Index 27.09 09/07/2017 12:00 AM ENDING MACHINE OPERATOR documented in this encounter Functional [...] on filedocumented in this encounter Care Teams Associate Sales Representative Relationship Specialty Start Date End Date Casey Berry II, DO PCP - General 11/22/06 08/17/19 Stephani Aleman MD PCP - General Family Medicine 08/18/19 09/16/20 Bianka Loera CNP [address] [place] [address] PCP - General Nurse Practitioner Family 09/17/20 7/12/31 Desiree Patrick MD [address] [place] [address] PCP - General Electrophysiology 02/23/22 03/09/22 Desiree Patrick MD [address] [place] [address] 08/09/17 Farrah Nicole APRN,SUPERVISOR STRIPPING [address] [place] [address] 08/09/17 Bry Echevarria MD [facility] [place] [address] 08/09/17 Casey Berry II, DO 08/09/17 Shruti Vergara RN RN Registered Nurse 08/27/20 documented as of this encounter Additional Source Comments PLEASE NOTE: Replies to this message will not be received.[facility] and [facility]
--- OUTSIDE RECORDS SUMMARY | 2024-07-13 16:22 | XMS_ITS | Encounter Summary ---
Author Organization [employer] Address [address] [place] [address] Care Team Providers Care Outreach Representative Name Role Phone Jamal CARLISLE DO, Robert William Primary Care Provide r Unavailable Desiree Patrick MD Unavailable Farrah Nicole APRN,ELECTRIC ORGAN INSPECTOR AND REPAIRER Unavailable Bry Echevarria MD Unavailable Jamal CARLISLE DO, Robert William Unavailable Unav Stephani Diaz MD Primary Care Provider Shruti Vergara RN Unavailable Unavailable Bianka Loera CNP Primary Care Provider [phone] Desiree Patrick MD Primary Care P rovider Encounter Details Date Type Department Care Team (Late st Contact Info) Description 12/31/2016 Historical Conversion [facility] Family Medicine [address] [place] [address] Desiree Rubi PAC [address] [place] [address] Social History Tobacco Use Types Packs/Day Years Used Date Smoking Tobacco: Former Cigarettes 1 18 1 961 - 1978 Alcohol Use Standard Drinks/Week Comments Yes 2 (1 standard drink = 0.6 oz pur e alcohol) 1-2 beers daily Sex and Gender Information Value Date Recorded Sex Assigned at Not on file Legal Sex Male 6:02 AM ADULT PROBATION OFFICER Gender Identity Not on file Sexual Orientation [...] CDT documented in this encounter Functional Status * Are you deaf or do you have serious difficulty hearing? Answer Date of Assessment Author Yes 10/17/2016 9:04 PM CDT Sobeida Bruno RN * Are you blind or do you have serious difficulty seeing, even when wearing glasses? Answer Date of Assessment Author No 10/17/2016 9:04 PM CDT Sobeida Bruno RN * Do you have serious difficulty walking or climbing stairs? Answer Date of Assessment Author No 10/17/2016 9:04 PM CDT Sobeida Bruno RN * Do you have difficulty dressing or bathing? Answer Date of Assessment Author No 10/17/2016 9:04 PM CDT Sobeida Bruno RN * Do you have difficulty doing errands alone such as visiting a doctor's office or shopping because of a physical, mental, or emotional condition? Answer Date of Assessment Author No 10/17/2016 9:04 PM CDT Sobeida Bruno RN documented as of this encounter Mental Status * Do you have trouble concentrating, remembering, or making decisions because of a physical, mental, or emotional condition? Answer Entry Date Author No 10/17/2016 9:04 PM MANAT Sobeida Bruno RN documented in this encounter Plan of Treatment Not on file documented as of this encounter Visit Diagnoses Not on filedocumented in this encounter Care Teams Outreach Representative Relationship Specialty Start Date End Date Casey Berry II, DO PCP - General 11/22/06 08/17/19 Stephani Aleman MD PCP - General Family Medicine 08/18/19 09/16/20 Bianka Loera, PORCELAIN ENAMEL INSTALLER [address] [place] [phone] PCP - General Nurse Practitioner Family 09/17/20 712/31 Desiree Patrick MD [address] [place] [address] PCP - General Electrophysiology 02/23/22 03/09/22 Desiree Patrick MD [address] [place] [address] 08/09/17 Farrah Nicole APRN,ELECTRIC ORGAN INSPECTOR AND REPAIRER [address] [place] [address] 08/09/17 Bry Echevarria MD [address] [place] [phone] 08/09/17 Casey Berry II, DO 08/09/17 Shruti Vergara, RN RN Registered Nurse 08/27/20 documented as of this encounter Additional Source Comments PLEASE NOTE: Replies to this message will not be received.[facility]
--- OUTSIDE RECORDS SUMMARY | 2024-07-13 16:22 | XMS_ITS | Encounter Summary ---
Author Organization [employer] Address [address] [place] [address] Care Team Providers Care Border Patrol Agent Name Role Phone Jamal CARLISLE DO, Robert William Primary Care Provide r Unavailable Desiree Patrick MD Unavailable Farrah Nicole APRN,CITY ROUTEMAN Unavailable Bry Echevarria MD Unavailable Jamal CARLISLE DO, Robert William Unavailable Unav Stephani Diaz MD Primary Care Provider Shruti Vergara RN Unavailable Unavailable Bianka Loera CNP Primary Care Provider [phone] Desiree Patrick MD Primary Care P rovider Encounter Details Date Type Department Care Team (Late st Contact Info) Description 04/06/2017 Historical Conversion [facility] [address] [place] [address] Casey Berry II, DO Social History Tobacco Use Types Packs/Day Years Used Date Smoking Tobacco: Former Cigarettes 1 18 1 961 - 1978 Smokeless Tobacco: Never Alcohol Use Standard Drinks/Week Comments Yes 2 (1 standard drink = 0.6 oz pur e alcohol) 1-2 beers daily Sex and Gender Information Value Date Recorded Sex Assigned at Not on file Legal Sex Male 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 SERVICES 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 Gender Identity Not on file Sexual [...] of Assessment Author No 10/17/2016 9:04 PM MANAT Sobeida Bruno RN documented as of this [...] on filedocumented in this encounter Care Teams Border Patrol Agent Relationship Specialty Start Date End Date Casey Berry II, DO PCP - General 11/22/06 08/17/19 Stephani Aleman MD PCP - General Family Medicine 08/18/19 09/16/20 Bianka Loera CNP [address] [place] [address] PCP - General Nurse Practitioner Family 09/17/20 7/12/31 Desiree Patrick MD [address] [place] [address] PCP - General Electrophysiology 02/23/22 03/09/22 Desiree Patrick MD [address] [place] [address] 08/09/17 Farrah Nicole APRN,CITY ROUTEMAN [address] [place] [address] 08/09/17 Bry Echevarria MD [address] [place] [address] 08/09/17 Casey Berry II, DO 08/09/17 Shruti Vergara RN RN Registered Nurse 08/27/20 documented as of this encounter Additional Source Comments PLEASE NOTE: Replies to this message will not be received.[facility] and [facility]
--- OUTSIDE RECORDS SUMMARY | 2024-07-13 16:22 | XMS_ITS | Encounter Summary ---
Author Organization [employer] Address [address] [place] [address] Care Team Providers Care Platemaker Name Role Phone Jamal CARLISLE DO, Robert William Primary Care Provide r Unavailable Desiree Patrick MD Unavailable Farrah Nicole APRN,PRIVACY DIRECTOR Unavailable Bry Echevarria MD Unavailable [phone] Jamal CARLISLE DO, Robert William Unavailable Unav Stephani Diaz MD Primary Care Provider Shruti Vergara RN Unavailable Unavailable Bianka Loera CNP Primary Care Provider [phone] Desiree Patrick MD Primary Care P rovider Encounter Details Date Type Department Care Team (Late st Contact Info) Description 11/30/2016 Historical Conversion [facility] Family Medicine [address] [place] [address] Casey Berry II, DO Social History Tobacco Use Types Packs/Day Years Used Date Smoking Tobacco: Former Cigarettes 1 18 1 961 - 1978 Alcohol Use Standard Drinks/Week Comments Yes 2 (1 standard drink = 0.6 oz pur e alcohol) 1-2 beers daily Sex and Gender Information Value Date Recorded Sex Assigned at Not on file Legal Sex Male 6:02 AM CHIEF 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 Gender Identity Not on file Sexual Orientation [...] 10/17/2016 9:04 PM MANAT Sobeida Bruno RN * Do you have [...] on filedocumented in this encounter Care Teams Platemaker Relationship Specialty Start Date End Date Casey Berry II, DO PCP - General 11/22/06 08/17/19 Stephani Aleman MD PCP - General Family Medicine 08/18/19 09/16/20 Bianka Loera CNP [address] [place], [place] [address] [place] [address] PCP - General Nurse Practitioner Family 09/17/20 7/12/31 Desiree Patrick MD [address] [facility] [place] [address] PCP - General Electrophysiology 02/23/22 03/09/22 Desiree Patrick MD [address] [facility] [place] [address] 08/09/17 Farrah Nicole APRN,PRIVACY DIRECTOR [address] [place] [address] 08/09/17 Bry Echevarria MD [address] [place] [address] 08/09/17 Casey Berry II, DO 08/09/17 Shruti Vergara RN RN Registered Nurse 08/27/20 documented as of this encounter Additional Source Comments PLEASE NOTE: Replies to this message will not be received.[facility] and [facility]
--- OUTSIDE RECORDS SUMMARY | 2024-07-13 16:22 | XMS_ITS | Encounter Summary ---
Author Organization [employer] Address [address] [place] [address] Care Team Providers Care Director Airport Operations Name Role Phone Jamal CARLISLE DO, Robert William Primary Care Provide r Unavailable Desiree Patrick MD Unavailable Farrah Nicole APRN,ARTIST REPRESENTATIVE Unavailable Bry Echevarria MD Unavailable Jamal CARLISLE DO, Robert William Unavailable Unav Stephani Diaz MD Primary Care Provider Shruti Vergara RN Unavailable Unavailable Bianka Loera CNP Primary Care Provider [phone] Desiree Patrick MD Primary Care P rovider Encounter Details Date Type Department Care Team (Late st Contact Info) Description 11/06/2016 Historical Conversion [facility] Family Medicine [address] [place] [address] Moon Maloney MD Social History Tobacco Use Types Packs/Day Years Used Date Smoking Tobacco: Former Cigarettes Q uit: 1978 Alcohol Use Standard Drinks/Week Comments Yes 2 (1 standard drink = 0.6 oz pur e alcohol) 1-2 beers daily Sex and Gender Information Value Date Recorded Sex Assigned at Not on file Legal Sex Male 6: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 BOX SEALING MACHINE CATCHER Gender Identity Not on file Sexual Orientation [...] Entry Date Author No 10/17/2016 9:04 PM Sobeida Beckham RN documented in this encounter Plan of Treatment Not on file documented as of this encounter Visit Diagnoses Not on filedocumented in this encounter Care Teams Director Airport Operations Relationship Specialty Start Date End Date Casey Berry II, DO PCP - General 11/22/06 08/17/19 Stephani Aleman MD PCP - General Family Medicine 08/18/19 09/16/20 Bianka Loera CNP [address] [place] [address] [address] [place] [address] PCP - General Nurse Practitioner Family 09/17/20 7/2 12/31 Desiree Patrick MD [address] [place] [address] PCP - General Electrophysiology 02/23/22 03/09/22 Desiree Patrick MD [address] [place] [address] 08/09/17 Farrah Nicole APRN,[facility] [address] [place] [address] 08/09/17 Bry Echevarria MD [address] [place] [address] 08/09/17 Casey Berry II, DO 08/09/17 Shruti Vergara RN RN Registered Nurse 08/27/20 documented as of this encounter Additional Source Comments PLEASE NOTE: Replies to this message will not be received.[facility] and [facility]
--- OUTSIDE RECORDS SUMMARY | 2024-07-13 16:22 | XMS_ITS | Encounter Summary ---
Author Organization [facility] Address [address] [place] [address] Care Team Providers Care Educational Resource Center Teacher Name Role Phone Jamal CARLISLE DO, Robert William Primary Care Provide r Unavailable Desiree Patrick MD Unavailable Farrah Nicole APRN,PAIN MANAGEMENT PHYSICIAN Unavailable Bry Echevarria MD Unavailable [phone] Jamal CARLISLE DO, Robert William Unavailable Unav Stephani Daiz MD Primary Care Provider [phone] Shruti Vergara RN Unavailable Unavailable Bianka Loera CNP Primary Care Provider [phone] Desiree Patrick MD Primary Care P rovider Encounter Details Date Type Department Care Team (Late st Contact Info) Description 12/31/2016 HIM Home Care Companion [facility] [address] [address] Gil Solares MD Social History Tobacco Use Types Packs/Day Years Used Date Smoking Tobacco: Former Cigarettes 1 18 1 961 - 1978 Alcohol Use Standard Drinks/Week Comments Yes 2 (1 standard drink = 0.6 oz pur e alcohol) 1-2 beers daily Sex and Gender Information Value Date Recorded Sex Assigned at Not on file Legal Sex Male 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 Answer Date of Assessment Author Yes 10/17/2016 9:04 PM Sobeida Beckham RN * Are you blind or do you have serious difficulty seeing, even when wearing glasses? Answer Date of Assessment Author No 10/17/2016 9:04 PM MANAT Clare Bruno RN * Do you have serious difficulty walking or climbing stairs? Answer Date of Assessment Author No 10/17/2016 9:04 PM CDT Sobeida Bruno RN * Do you have difficulty dressing or bathing? Answer Date of Assessment Author No 10/17/2016 9:04 PM Sobeida Beckham RN * Do you have difficulty doing errands alone such as visiting a doctor's office or shopping because of a physical, mental, or emotional condition? Answer Date of Assessment Author No 10/17/2016 9:04 PM Sobeida Beckham RN documented as of this encounter Mental Status * Do you have trouble concentrating, remembering, or making decisions because of a physical, mental, or emotional condition? Answer Entry Date Author No 10/17/2016 9:04 PM Sobeida Beckham RN documented in this encounter Procedure Notes * Gil Solares MD - 12/31/2016 12:00 AM CDTAssociated Order(s): ECHOCARDIOGRAM TRANSTHORACIC ADULT WITH OR WITHOUT CONTRAST PERFORMED BY: [place] SITE: [place], [place] INTERPRETED BY: [facility] [place], [place] TRANSTHORACIC ECHOCARDIOGRAM REPORT REFERRING DIAGNOSIS: Paroxysmal [...] fibrillation. Note: This study was performed by [place] [facility] for [place]. Only the interpretation wasperformed at the [facility] [place]. Electronically signed Gil Solares MD, [facility] Automatic Oven Operator , 04:45 P A kmg/Doc#: [id number] cc: Adult Normal Value Adult Patient Values [...] Blood pressure: 116/81 mmHg Previous study: 11/19/15 Acetylene Burner: HIEU documented in this encounter Plan of Treatment [...] - 12/31/2016 12:00 AM CDT PERFORMED BY: [facility] [employer] [place], [place] SITE: [place], [place] INTERPRETED BY: [facility] VASCULAR [place], [place] TRANSTHORACIC ECHOCARDIOGRAM REPORT REFERRING DIAGNOSIS: Paroxysmal [...] fibrillation. Note: This study was performed by [place] [facility].Only the interpretation was performed at the [facility]. Electronically signed Gil Solares MD, [facility] Automatic Oven Operator , 04:45 P A kmg/Doc#: [id number] cc: Adult Normal Value Adult Patient Values [...] dt 254 ms E' sept 6.04 cm/sec [id number] ms E/e' 10 E' lat 9.65 cm/sec IMPRESSION: Patient height: 185 cm Patient weight: 94 kg Blood pressure: 116/81 mmHg Previous study: 11/19/15 Acetylene Burner: HIEU us Desiree Patrick MD CAR ULTRASOUND Edited Result - Final documented in this encounter Visit Diagnoses Not on filedocumented in this encounter Care Teams Educational Resource Center Teacher Relationship Specialty Start Date End Date Casey Berry II, DO PCP - General 11/22/06 08/17/19 Stephani Aleman MD PCP - General Family Medicine 08/18/19 09/16/20 Bianka Loera GEOPHYSICAL PROSPECTOR [address] [place] [address] PCP - General Nurse Practitioner Family 09/17/20 7/12/31 Desiree Patrick MD [address] [place] [address] [place] [address] PCP - General Electrophysiology 02/23/22 03/09/22 Desiree Patrick MD [address] [place] [address] 08/09/17 Farrah Nicole APRN,PAIN MANAGEMENT PHYSICIAN [address] [place] [address] 08/09/17 Bry Echevarria MD [address] [place] [address] [place] [address] 08/09/17 Casey Berry II, DO 08/09/17 Shruti Vergara RN RN Registered Nurse 08/27/20 documented as of this encounter Additional Source Comments PLEASE NOTE: Replies to this message will not be received.[facility] and [facility]
--- OUTSIDE RECORDS SUMMARY | 2024-07-13 16:22 | XMS_ITS | Encounter Summary ---
Author Organization [employer] Address [address] [place] [address] Care Team Providers Care Plant Scientist Name Role Phone Jamal CARLISLE DO, Robert William Primary Care Provide r Unavailable Desiree Patrick MD Unavailable Farrah Nicole APRN,CLOSER ON Unavailable [phone] Bry Echevarria MD Unavailable [phone] Jamal CARLISLE DO, Robert William Unavailable Unav Stephani Diaz MD Primary Care Provider Shruti Vergara RN Unavailable Unavailable Bianka Loera CNP Primary Care Provider [phone] Desiree Patrick MD Primary Care P rovider Encounter Details Date Type Department Care Team (Late st Contact Info) Description 12/31/2016 Historical Conversion [facility] Family Medicine [address] 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 He previously had rubber nodularity on both sides of the prostate. He had a PSA velocitychange and his PCA3 test came back positive. A biopsy October 2016 showed a [place] 6 prostate cancerat the left base of the prostate involving 2% of the specimen. He also had [place] 7 cancer at the left mid-prostate involving [...] 1. Patient has adenocarcinoma of the prostate [place] 7 disease. He is status post EBRT [...] inregards to the above issues. Mare Rubi P.A.-C./lb Electronically signed by:Desiree Rubi PA-C Sep 02 2017 5:01PM SENIOR PROJECT ENGINEER * Desiree Rubi - 03/30/2017 12:00 AM CDT UROLOGY [facility]RISTIAN BLEDSOE : 1945 HX: [id number] DOS: 03/30/2017 HISTORY OF PRESENT ILLNESS: 71-year-old [...] tissue. The right mid prostate he had [place] 7 cancer involving 20% of the tissue in that area. Also at [facility] it was a [place] 7 cancer involving [...] and try his BiPAP machine. Mare Rubi P.A.-C./rodneyw- 22 cc: Dr. Moon Maloney [facility] [place] [facility] Radiation Therapy Dept Dr. Casey Berry [facility] [place] Electronically signed by:Desiree Rubi PA-C Apr 02 2017 1:20PM SENIOR PROJECT ENGINEER * Desiree Rubi - 12/31/2016 12:00 AM CDT UROLOGY [facility]RISTIAN BLEDSOE : 1945 HX: [id number] DOS: 12/31/2016 HISTORY OF PRESENT ILLNESS: 71-year-old male who presents to the Urology clinic today. Hehad a velocity change with his PSA. On his prostate exam he had a rubbery nodularity on both sides.It was a symmetrical prostate. His PSA was monitored for a little while. 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 He [...] Lupron. UA today is normal. ASSESSMENT: 1. [place] 7 adenocarcinoma of the prostate. He will [...] regards to prostate cancer. Mare Rubi P.A.-C./anna cc: Dr. Moon Maloney [facility] Dr. Jose [facility] Dr. Casey Berry [facility] Electronically signed by:Desiree Rubi PA-C Jan 06 2017 4:31PM SENIOR PROJECT ENGINEER Author documented in this encounter Plan of Treatment Not on file documented as of this encounter Visit Diagnoses Not on filedocumented in this encounter Care Teams Plant Scientist Relationship Specialty Start Date End Date Casey Berry II, DO PCP - General 11/22/06 08/17/19 Stephani Aleman MD PCP - General Family Medicine 08/18/19 09/16/20 Bianka Loera CNP [address] [facility] [address] [place] [address] PCP - General Nurse Practitioner Family 09/17/20 712/31 Desiree Patrick MD [address] [facility] [place] [address] PCP - General Electrophysiology 02/23/22 03/09/22 Desiree Patrick MD [address] [place] [address] 08/09/17 Farrah Nicole APRN,CLOSER ON [address] [place] [address] 08/09/17 Bry Echevarria MD [address] [facility] [place] [address] 08/09/17 Casey Berry II, DO 08/09/17 Shruti Vergara RN RN Registered Nurse 08/27/20 documented as of this encounter Additional Source Comments PLEASE NOTE: Replies to this message will not be received.[facility] and [facility]
--- OUTSIDE RECORDS SUMMARY | 2024-07-13 16:22 | XMS_ITS | Encounter Summary ---
Author Organization [email or web address] Address [address] [place] [address] Care Team Providers Care Electric Plater Name Role Phone Jamal CARLISLE DO, Robert William Primary Care Provide r Unavailable Desiree Patrick MD Unavailable Farrah Nicole APRN,CHEMISTRY MANAGER Unavailable Bry Echevarria MD Unavailable [phone] Jamal CARLISLE DO, Robert William Unavailable Unav Stephani Diaz MD Primary Care Provider Shruti Vergara RN Unavailable Unavailable Bianka Loera CNP Primary Care Provider [phone] Desiree Patrick MD Primary Care P rovider Encounter Details Date Type Department Care Team (Late st Contact Info) Description 02/03/2017 Historical Conversion [facility] Family Medicine [address] [place] [id number] Social History Tobacco Use Types Packs/Day Years Used Date Smoking Tobacco: Former Cigarettes 1 18 1 961 - 1978 Smokeless Tobacco: Never Alcohol Use Standard Drinks/Week Comments Yes 2 (1 standard drink = 0.6 oz pur e alcohol) 1-2 beers daily Sex and Gender Information Value Date Recorded Sex Assigned at Not on file Legal Sex Male 6:02 AM PACKAGE CENTER SUPERVISOR Gender Identity Not on file Sexual Orientation [...] Sobeida Beckham RN * Do you have serious difficulty walking or climbing stairs? Answer Date of Assessment Author No 10/17/2016 9:04 PM Sobeida Beckham RN * Do you have difficulty dressing [...] encounter Procedure Notes * [facility] - 01/05/2018 12:00 AM CDTAssociated Order(s): ANTICOAGULATION [facility] Name: CRISTIAN BLEDSOE : 1945 DOS: [...] by:Tiffani Carrero RN Jan 05 2018 12:21PM PACKAGE CENTER SUPERVISOR * [facility] - 12/21/2017 12:00 AM CDTAssociated Order(s): ANTICOAGULATION [facility] Name: CRISTIAN BLEDSOE : 1945 DOS: [...] by:Tiffani Carrero RN Dec 21 2017 8:31AM PACKAGE CENTER SUPERVISOR * [facility] - 11/24/2017 12:00 AM CDTAssociated Order(s): ANTICOAGULATION [facility] Name: CRISTIAN BLEDSOE : 1945 DOS: [...] by:Tiffani Carrero RN Nov 24 2017 2:41PM PACKAGE CENTER SUPERVISOR * [facility] - 10/27/2017 12:00 AM CDTAssociated Order(s): ANTICOAGULATION [facility] Name: CRISTIAN BLEDSOE : 1945 DOS: 10/27/2017 Cristian is a patient of Dr. Berry. He is here today for anticoagulation assessment and INR check for adiagnosis of atrial fibrillation. Patient states that he has not been feeling well and has been suffering with spinal stenosis. He reports that he has been taking soma for a muscle relaxer. He also reports that his import export agent has changed his medications. Patient stales that he is no longer takingany rate control medications. INR tested today is therapeutic at 2.0 with the recommended range of 2.0 to 3.0. He will continue Coumadin at 5 mg daily with an INR recheck in one month, sooner for anychanges. Patient verbalizes understanding. Electronically signed by:Tiffani Carrero RN Oct 28 2017 7:02AM PACKAGE CENTER SUPERVISOR * [facility], [employer] - 09/29/2017 12:00 AM CDTAssociated Order(s): ANTICOAGULATION Anticoagulation [facility] Name: CRISTIAN BLEDSOE : 1945 DOS: 09/29/2017 Cristian is a patient of Dr. Berry. He is here today for anticoagulation assessment and INR check for adiagnosis of atrial fibrillation. Patient states that he is feeling well. He denies any changes in medication. Patient reports that he continues to experience bradycardia and is working with his import export agent to manage his beta blockers slowly. INR tested today is therapeutic at 2.1 with the recommended range of 2.0 to 3.0. He will continue Coumadin at 5 mg daily with an INR recheck in one month, sooner for any changes. Patient verbalizes understanding. Electronically signed by:Tiffani Carrero RN Sep 29 2017 2:09PM PACKAGE CENTER SUPERVISOR * [facility] - 09/15/2017 12:00 AM CSTAssociated Order(s): ANTICOAGULATION Anticoagulation [facility] Name: CRISTIAN BLEDSOE : 1945 [...] that Dr. Berry will converse with his import export agent to see if they should change some of his heart medications. Patient will call [facility] nurse with any updates. INR tested today is 1.9 with the recommended range of 2.0 to 3.0. He will adjust Coumadin to 5 mg daily with an INR recheck in two weeks. Patient verbalizes understanding. Electronically signed by:Tiffani Carrero RN Sep 15 2017 11:42AM PACKAGE CENTER SUPERVISOR * [facility] - 08/18/2017 12:00 AM CSTAssociated Order(s): ANTICOAGULATION [facility] Name: CRISTIAN BLEDSOE : 1945 DOS: [...] by:Tiffani Carrero RN Aug 18 2017 6:00PM PACKAGE CENTER SUPERVISOR * [facility] - 07/09/2017 12:00 AM CSTAssociated Order(s): ANTICOAGULATION [facility] Name: CRISTIAN BLEDSOE : 1945 DOS: [...] by:Tiffani Carrero RN Jul 09 2017 11:28AM PACKAGE CENTER SUPERVISOR * [facility] - 06/16/2017 12:00 AM CSTAssociated Order(s): ANTICOAGULATION [facility] Name: CRISTIAN BLEDSOE : 1945 DOS: [...] by:Tiffani Carrero RN Jun 16 2017 4:18PM PACKAGE CENTER SUPERVISOR * [facility] - 06/09/2017 12:00 AM CSTAssociated Order(s): ANTICOAGULATION [facility] Name: CRISTIAN BLEDSOE : 1945 DOS: 06/09/2017 This is a patient of Dr. Berry. He is here today for an anticoagulation assessment and INR check fora diagnosis of atrial fibrillation. He states that he has been feeling well. Patient denies any recent medication changes. He reports that he needs weekly INR checks per Dr. Patrick at [facility] in preparation for taking dofetilide and [...] by:Tiffani Carrero RN Jun 09 2017 3:40PM PACKAGE CENTER SUPERVISOR * [facility] - 06/02/2017 12:00 AM CSTAssociated Order(s): ANTICOAGULATION [facility] Name: CRISTIAN BLEDSOE : 1945 DOS: 06/02/2017 This is a patient of Dr. Berry. He is here today for an anticoagulation assessment and INR check fora diagnosis of atrial fibrillation. He states that he has been feeling well. Patient denies any recent medication changes. He reports that he will need weekly INR checks per Dr. Patrick at [facility] in preparation for taking dofetilide and [...] by:Tiffani Carrero RN Jun 02 2017 9:39AM PACKAGE CENTER SUPERVISOR AMENDMENTS: 1. current INR and Coumadin dosing. Electronically signed by:Tiffani Carrero RN Jun 09 2017 3:41PM PACKAGE CENTER SUPERVISOR * [facility] - 05/26/2017 12:00 AM CSTAssociated Order(s): ANTICOAGULATION [facility] Name: CRISTIAN BLEDSOE : 1945 DOS: [...] by:Tiffani Carrero RN May 26 2017 9:42AM PACKAGE CENTER SUPERVISOR * [facility] - 05/19/2017 12:00 AM CSTAssociated Order(s): ANTICOAGULATION [facility] Name: CRISTIAN BLEDSOE : 1945 DOS: [...] by:Tiffani Carrero RN May 19 2017 3:13PM PACKAGE CENTER SUPERVISOR * [facility] - 05/14/2017 12:00 AM CDTAssociated Order(s): ANTICOAGULATION Email communication received from patient today: ALLAN Vera, RN [facility] (direct phone) [phone] Per our phone conversation of yesterday afternoon, I will be having an initiation of Tikosyn (Dofetilide) at [facility] beginning on Wednesday, June 21. To prepare for this, my import export agent,Dr. Desiree Patrick, has requested INR lab reports demonstrating 4 to 5 weeks of INR levels between 2.5 and 3 prior to the initiation of Tikosyn. Would you please fax my INR lab reports for the month of May to Tamika, Dr. Patrick???s nurse, at (fax) [phone]? The phone number for Dr. Patrick is [phone]. As we discussed, I will come in for INR testing each Wednesday morning at 9:30 AM to meet this requirement. Thank you, Anurag Bledsoe Electronically signed by:Tiffani Carrero RN May 14 2017 9:46AM PACKAGE CENTER SUPERVISOR * [facility] - 05/10/2017 12:00 AM CDTAssociated Order(s): ANTICOAGULATION [facility] Name: CRISTIAN BLEDSOE : 1945 DOS: [...] by:Tiffani Carrero RN May 10 2017 3:11PM PACKAGE CENTER SUPERVISOR * [facility] - 04/06/2017 12:00 AM CDTAssociated Order(s): ANTICOAGULATION [facility] Name: CRISTIAN BLEDSOE : 1945 DOS: [...] by:Tiffani Carrero RN Apr 06 2017 12:37PM PACKAGE CENTER SUPERVISOR * [facility] - 03/03/2017 12:00 AM CDTAssociated Order(s): ANTICOAGULATION [facility] Name: CRISTIAN BLEDSOE : 1945 DOS: [...] He will have INR checked in [facility] prior to his appointment with Dr. Maloney. Patient verbalized understanding. Electronically signed by:Tiffani Carrero RN Mar 03 2017 12:02PM PACKAGE CENTER SUPERVISOR * [facility] - 02/03/2017 12:00 AM CDTAssociated Order(s): ANTICOAGULATION [facility] Name: CRISTIAN BLEDSOE : 1945 DOS: [...] by:Tiffani Carrero RN Feb 03 2017 10:11AM PACKAGE CENTER SUPERVISOR documented in this encounter Plan of [...] Results * ANTICOAGULATION (01/05/2018) Narrative Procedure Note [facility] - 01/05/2018 12:00 AM CDT Anticoagulation [facility] Name: CRISTIAN BLEDSOE : 1945 [...] 7.5 mg on Wednesdays and 5 mg allo days with an INR recheck in one month, sooner for any changes.Patient verbalizes understanding. Electronically signed by:Tiffani Carrero RN Jan 05 2018 12:21PM PACKAGE CENTER SUPERVISOR [facility] OTHER Fi nal Result * ANTICOAGULATION (12/21/2017) Narrative Procedure Note [facility] - 12/21/2017 12:00 AM CDT Anticoagulation [facility] Name: CRISTIAN BLEDSOE : 1945 [...] by:Tiffani Carrero RN Dec 21 2017 8:31AM PACKAGE CENTER SUPERVISOR [facility] OTHER Fi nal Result * ANTICOAGULATION (11/24/2017) Narrative Procedure Note [facility] - 11/24/2017 12:00 AM CDT Anticoagulation [facility] Name: CRISTIAN BLEDSOE : 1945 [...] by:Tiffani Carrero RN Nov 24 2017 2:41PM PACKAGE CENTER SUPERVISOR [facility] OTHER Fi nal Result * ANTICOAGULATION (10/27/2017) Narrative Procedure Note [facility] - 10/27/2017 12:00 AM CDT Anticoagulation [facility] Name: CRISTIAN BLEDSOE : 1945 DOS: 10/27/2017 Cristian is a patient of Dr. Berry. He is here today for anticoagulationassessment and INR check for a diagnosis of atrial fibrillation. Patientstates that he has not been feeling well and has been suffering withspinal stenosis. He reports that he has been taking soma for a musclerelaxer. He also reports that his import export agent has changed hismedications. Patient stales that he is no longer taking any rate controlmedications. INR tested today is therapeutic at 2.0 with the recommendedrange of 2.0 to 3.0. He will continue Coumadin at 5 mg daily with an INRrecheck in one month, sooner for any changes. Patient verbalizesunderstanding. Electronically signed by:Tiffani Carrero RN Oct 28 2017 7:02AM PACKAGE CENTER SUPERVISOR [facility] OTHER Fi nal Result * ANTICOAGULATION (09/29/2017) Narrative Procedure Note [facility] - 09/29/2017 12:00 AM CDT Anticoagulation [facility] Name: CRISTIAN BLEDSOE : 1945 DOS: 09/29/2017 Cristian is a patient of Dr. Berry. He is here today for anticoagulationassessment and INR check for a diagnosis of atrial fibrillation. Patientstates that he is feeling well. He denies any changes in medication.Patient reports that he continues to experience bradycardia and is workingwith his import export agent to manage his beta blockers slowly. INR testedtoday is therapeutic at 2.1 with the recommended range of 2.0 to 3.0. Hewill continue Coumadin at 5 mg daily with an INR recheck in one month,sooner for any changes. Patient verbalizes understanding. Electronically signed by:Tiffani Carrero RN Sep 29 2017 2:09PM PACKAGE CENTER SUPERVISOR [facility] OTHER Fi nal Result * ANTICOAGULATION (09/15/2017) Narrative Procedure Note [facility] - 09/15/2017 12:00 AM CST Anticoagulation [facility] Name: CRISTIAN BLEDSOE : 1945 [...] statesthat Dr. Berry will converse with his import export agent to see if they shouldchange some of his heart medications. Patient will call [facility] nurse with anyupdates. INR tested today is 1.9 with the recommended range of 2.0 to 3.0.He will adjust Coumadin to 5 mg daily with an INR recheck in two weeks.Patient verbalizes understanding. Electronically signed by:Tiffani Carrero RN Sep 15 2017 11:42AM PACKAGE CENTER SUPERVISOR [facility] OTHER Fi nal Result * ANTICOAGULATION (08/18/2017) Narrative Procedure Note [facility] - 08/18/2017 12:00 AM CST Anticoagulation [facility] Name: CRISTIAN BLEDSOE : 1945 [...] by:Tiffani Carrero RN Aug 18 2017 6:00PM PACKAGE CENTER SUPERVISOR [facility] OTHER Fi nal Result * ANTICOAGULATION (07/09/2017) Narrative Procedure Note [facility] - 07/09/2017 12:00 AM CST Anticoagulation [facility] Name: CRISTIAN BLEDSOE : 1945 [...] by:Tiffani Carrero RN Jul 09 2017 11:28AM PACKAGE CENTER SUPERVISOR [facility] OTHER Fi nal Result * ANTICOAGULATION (06/16/2017) Narrative [facility] 06/16/2017 12:00 AM CST [facility] Name: CRISTIAN BLEDSOE : 1945 DOS: 06/16/2017 This is a patient of Dr. Berry. He is here today for an anticoagulationassessment and INR check for a diagnosis of atrial fibrillation. He statesthat he has been feeling well. Patient denies any recent medicationchanges. He reports that he needs weekly INR checks per Dr. Patrick [facility] in preparation for taking dofetilide [...] by:Tiffani Carrero RN Jun 16 2017 4:18PM PACKAGE CENTER SUPERVISOR [facility] OTHER Fi nal Result * ANTICOAGULATION (06/09/2017) Narrative Procedure Note [facility] - 06/09/2017 12:00 AM CST Anticoagulation [facility] Name: CRISTIAN BLEDSOE : 1945 DOS: 06/09/2017 This is a patient of Dr. Berry. He is here today for an anticoagulationassessment and INR check for a diagnosis of atrial fibrillation. He statesthat he has been feeling well. Patient denies any recent medicationchanges. He reports that he needs weekly INR checks per Dr. Patrick [facility] in preparation for taking dofetilide [...] by:Tiffani Carrero RN Jun 09 2017 3:40PM PACKAGE CENTER SUPERVISOR [facility] OTHER Fi nal Result * ANTICOAGULATION (06/02/2017) Narrative Procedure Note [facility] - 06/02/2017 12:00 AM CST Anticoagulation [facility] Name: CRISTIAN BLEDSOE : 1945 [...] by:Tiffani Carrero RN Jun 02 2017 9:39AM PACKAGE CENTER SUPERVISOR AMENDMENTS: 1. current INR and Coumadin dosing. Electronically signed by:Tiffani Carrero RN Jun 09 2017 3:41PM PACKAGE CENTER SUPERVISOR Genericproder [facility] OTHER Fi nal Result * ANTICOAGULATION (05/26/2017) Narrative Procedure Note [facility] - 05/26/2017 12:00 AM CST [facility] Name: CRISTIAN BLEDSOE : 1945 DOS: [...] by:Tiffani Carrero RN May 26 2017 9:42AM PACKAGE CENTER SUPERVISOR [facility] OTHER Fi nal Result * ANTICOAGULATION (05/19/2017) Narrative Procedure Note [facility] - 05/19/2017 12:00 AM CST [facility] Name: CRISTIAN BLEDSOE : 1945 DOS: [...] by:Tiffani Carrero RN May 19 2017 3:13PM PACKAGE CENTER SUPERVISOR [facility] OTHER Fi nal Result * ANTICOAGULATION (05/14/2017) Narrative Procedure Note [facility] - 05/14/2017 12:00 AM CDT Email communication received from patient today: ALLAN Vera, RN [facility] (direct phone) [phone] Per our phone conversation of yesterday afternoon, I will be having aninitiation of Tikosyn (Dofetilide) at [facility] beginning June 21. To prepare for this, my import export agent, Dr. Serra, has requested INR lab reports demonstrating 4 to 5 weeks ofINR levels between 2.5 and 3 prior to the initiation of Tikosyn. Would you please fax my INR lab reports for the month of May [facility], Dr. Patrick s nurse, at (fax) [phone]? The phone numberfor Dr. Patrick is [phone]. As we discussed, I will come in for INR testing each Wednesday morning at9:30 AM to meet this requirement. Thank you, Anurag Bledsoe Electronically signed by:Tiffani Carrero RN May 14 2017 9:46AM PACKAGE CENTER SUPERVISOR us Genericproder [facility] OTHER Fi nal Result * ANTICOAGULATION (05/10/2017) Narrative Procedure Note [facility] - 05/10/2017 12:00 AM CDT [facility] Name: CRISTIAN BLEDSOE : 1945 DOS: [...] by:Tiffani Carrero RN May 10 2017 3:11PM PACKAGE CENTER SUPERVISOR [facility] OTHER Fi nal Result * ANTICOAGULATION (04/06/2017) Narrative Procedure Note [facility] - 04/06/2017 12:00 AM CDT Anticoagulation [facility] Name: CRISTIAN BLEDSOE : 1945 [...] by:Tiffani Carrero RN Apr 06 2017 12:37PM PACKAGE CENTER SUPERVISOR [facility] OTHER Fi nal Result * ANTICOAGULATION (03/03/2017) Narrative Procedure Note [facility] - 03/03/2017 12:00 AM CDT Anticoagulation [facility] Name: CRISTIAN BLEDSOE : 1945 [...] changes. He willhave INR checked in the [facility] prior to his appointment with . Patient verbalized understanding. Electronically signed by:Tiffani Carrero RN Mar 03 2017 12:02PM PACKAGE CENTER SUPERVISOR [facility] OTHER Fi nal Result * ANTICOAGULATION (02/03/2017) Narrative Procedure Note [facility] - 02/03/2017 12:00 AM CDT [facility] Name: CRISTIAN BLEDSOE : 1945 DOS: [...] by:Tiffani Carrero RN Feb 03 2017 10:11AM PACKAGE CENTER SUPERVISOR [facility] OTHER Fi nal Result documented in this encounter Visit Diagnoses Not on filedocumented in this encounter Care Teams Electric Plater Relationship Specialty Start Date End Date Casey Berry II, DO PCP - General 11/22/06 08/17/19 Stephani Aleman MD PCP - General Family Medicine 08/18/19 09/16/20 Bianka Loera, MATTRESS FILLER [address] [place] [id number] PCP - General Nurse Practitioner Family 09/17/20 712/31 Desiree Patrick MD [address] [place] [address] PCP - General Electrophysiology 02/23/22 03/09/22 Desiree Patrick MD [address] [place] [address] 08/09/17 Farrah Nicole APRN,CHEMISTRY MANAGER [address] [place] [address] 08/09/17 Bry Echevarria MD [facility] [place] [phone] 08/09/17 Casey Berry II, DO 08/09/17 Shruti Vergara, RN RN Registered Nurse 08/27/20 documented as of this encounter Additional Source Comments PLEASE NOTE: Replies to this message will not be received.[facility]
--- OUTSIDE RECORDS SUMMARY | 2024-07-13 16:22 | XMS_ITS | Encounter Summary ---
Author Organization [employer] Address [address] [place] [address] Care Team Providers Care Plate And Weld Inspector Name Role Phone Jamal CARLISLE DO, Robert William Primary Care Provide r Unavailable Desiree Patrick MD Unavailable Farrah Nicole APRN,INSURANCE SOLICITOR Unavailable Bry Echevarria MD Unavailable Jamal CARLISLE DO, Robert William Unavailable Unav Stephani Diaz MD Primary Care Provider Shruti Vergara RN Unavailable Unavailable Bianka Loera CNP Primary Care Provider Desiree Patrick MD Primary Care P rovider Encounter Details Date Type Department Care Team (Late st Contact Info) Description 12/01/2016 Historical Conversion [facility] [address] [place] [id number] Moon Maloney MD Social History Tobacco Use Types Packs/Day Years Used Date Smoking Tobacco: Former Cigarettes 1 18 1 961 - 1978 Alcohol Use Standard Drinks/Week Comments Yes 2 (1 standard drink = 0.6 oz pur e alcohol) 1-2 beers daily Sex and Gender Information Value Date Recorded Sex Assigned at Not on file Legal Sex Male 6:02 AM DRUPAL DEVELOPER Gender Identity Not on file Sexual Orientation [...] filedocumented in this encounter Care Teams Plate And Weld Inspector Relationship Specialty Start Date End Date Casey Berry II, DO PCP - General 11/22/06 08/17/19 Stephani lAeman MD PCP - General Family Medicine 08/18/19 09/16/20 Bianka Loera CNP [address] [place] [address] [address] [place] [address] PCP - General Nurse Practitioner Family 09/17/20 7/12/31 Desiree Patrick MD [address] [place] [address] PCP - General Electrophysiology 02/23/22 03/09/22 Desiree Patrick MD [address] [place] [address] 08/09/17 Farrah Nicole, FIRST LINE SUPERVISOR,INSURANCE SOLICITOR [address] [place] [place] [address] 08/09/17 Bry Echevarria MD [address] [place] [address] 08/09/17 Casey Berry II, DO 08/09/17 Shruti Vergara RN RN Registered Nurse 08/27/20 documented as of this encounter Additional Source Comments PLEASE NOTE: Replies to this message will not be received.[facility]
--- OUTSIDE RECORDS SUMMARY | 2024-07-13 16:22 | XMS_ITS | Encounter Summary ---
Author Organization [employer] Address [address] [place] [address] Care Team Providers Care Travel Insurance Agent Name Role Phone Jamal CARLISLE DO, Robert William Primary Care Provide r Unavailable Desiree Patrick MD Unavailable Farrah Nicole APRN,TOBACCO DIPPER Unavailable Bry Echevarria MD Unavailable Jamal CARLISLE DO, Robert William Unavailable Unav Stephani Diaz MD Primary Care Provider Shruti Vergara RN Unavailable Unavailable Bianka Loera CNP Primary Care Provider Desiree Patrick MD Primary Care P rovider Encounter Details Date Type Department Care Team (Late st Contact Info) Description 03/30/2017 Historical Conversion [facility] Family Medicine [address] [facility] 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 FUR MACHINE OPERATOR Gender Identity Not on file [...] on filedocumented in this encounter Care Teams Travel Insurance Agent Relationship Specialty Start Date End Date Casey Berry II, DO PCP - General 11/22/06 08/17/19 Stephani Aleman MD PCP - General Family Medicine 08/18/19 09/16/20 Bianka Loera, NIKKI [address] [place] [phone] PCP - General Nurse Practitioner Family 09/17/20 712/31 Desiree Patrick MD [address] [place] [address] PCP - General Electrophysiology 02/23/22 03/09/22 Desiree Patrick MD [address] [place] [address] 08/09/17 Farrah Nicole APRN,TOBACCO DIPPER [address] [place] [address] 08/09/17 Bry Echevarria MD [address] [place] [phone] 08/09/17 Casey Berry II, DO 08/09/17 Shruti Vergara, RN RN Registered Nurse 08/27/20 documented as of this encounter Additional Source Comments PLEASE NOTE: Replies to this message will not be received.[facility] and [facility]
--- OUTSIDE RECORDS SUMMARY | 2024-07-13 16:23 | XMS_ITS | Encounter Summary ---
Author Organization [employer] Address [address] [place] [address] Care Team Providers Care Bilingual Executive Assistant Name Role Phone Jamal CARLISLE DO, Robert William Primary Care Provide r Unavailable Desiree Patrick MD Unavailable Farrah Nicole APRN,[employer]FT FSCM DEVELOPER Unavailable [phone] Bry Echevarria MD Unavailable [phone] Jamal CARLISLE DO, Robert William Unavailable Unav Stephani Diaz MD Primary Care Provider [phone] Shruti Vergara RN Unavailable Unavailable Bianka Loera CNP Primary Care Provider Desiree Patrick MD Primary Care P rovider Encounter Details Date Type Department Care Team (Late st Contact Info) Description 12/11/2015 Historical Conversion [facility] Family Medicine [address] [place] [address] Casey Berry II, DO Social History Tobacco Use Types Packs/Day Years Used Date Smoking Tobacco: Former Cigarettes Q uit: 1978 Alcohol Use Standard Drinks/Week Comments Yes 0 (1 standard drink = 0.6 oz pur e alcohol) occasional Sex and Gender Information Value Date Recorded Sex Assigned at Not on file Legal Sex Male 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 Answer Date of Assessment Author No 11/15/2015 11:12 PM CDT Chitra Prince RN * Are you blind or do you have serious difficulty seeing, even when wearing glasses? Answer Date of Assessment Author No 11/15/2015 11:41 PM CDT Chitra Prince RN * Do you have serious difficulty walking or climbing stairs? Answer Date of Assessment Author No 11/15/2015 11:41 PM CDT Chitra Prince RN * Do you have difficulty dressing or bathing? Answer Date of Assessment Author No 11/15/2015 11:41 PM CDT Chitra Prince RN * Do you have difficulty doing errands alone such as visiting a doctor's office or shopping because of a physical, mental, or emotional condition? Answer Date of Assessment Author No 11/15/2015 11:41 PM MANAT Chitra Prince RN documented as of this encounter Mental Status * Do you have trouble concentrating, remembering, or making decisions because of a physical, mental, or emotional condition? Answer Entry Date Author No 11/15/2015 11:41 PM MANAT Chitra Prince RN documented in this encounter Plan of Treatment Not on file documented as of this encounter Visit Diagnoses Not on filedocumented in this encounter Care Teams Bilingual Executive Assistant Relationship Specialty Start Date End Date Casey Berry II, DO PCP - General 11/22/06 08/17/19 Stephani Aleman MD PCP - General Family Medicine 08/18/19 09/16/20 Bianka Loera CNP [address] [place] [address] 2 [place] [address] PCP - General Nurse Practitioner Family 09/17/20 7/2 12/31 Desiree Patrick MD [address] [place] [address] PCP - General Electrophysiology 02/23/22 03/09/22 Desiree Patrick MD [address] [place] [address] 08/09/17 Farrah Nicole APRN,[facility] [address] [place] [address] 08/09/17 Bry Echevarria MD [address] [place] [phone] 08/09/17 Casey Berry II, DO 08/09/17 Shruti Vergara RN RN Registered Nurse 08/27/20 documented as of this encounter Additional Source Comments PLEASE NOTE: Replies to this message will not be received.[facility] and [facility]placed By [facility]
--- OUTSIDE RECORDS SUMMARY | 2024-07-13 16:23 | XMS_ITS | Encounter Summary ---
Author Organization [employer] Address [address] [place] [address] Care Team Providers Care Flexographic Press Helper Name Role Phone Jamal CARLISLE DO, Robert William Primary Care Provide r Unavailable Desiree Patrick MD Unavailable Farrah Nicole APRN,SCALE SHOOTER Unavailable [phone] Bry Echevarria MD Unavailable Jamal CARLISLE DO, Robert William Unavailable Unav Stephani Diaz MD Primary Care Provider Shruti Vergara RN Unavailable Unavailable Bianka Loera CNP Primary Care Provider [phone] Desiree Patrick MD Primary Care P rovider Encounter Details Date Type Department Care Team (Late st Contact Info) Description 01/28/[address] 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 Answer Entry Date Author No 11/15/2015 11:41 PM MANAT Chitra Prince RN documented in this encounter Procedure Notes * [facility] - 01/28/2016 12:00 AM CDTAssociated Order(s): ANTICOAGULATION [...] daily, Reglan 5 mg TID PRN, and [id number] mg BID for pain in right knee. Diet seems consistent. Reports having regular servings of greens during the summer as he is apart of a [employer] garden. Drinks green tea on occasion; encouraged [...] by:Razia Duarte RN Jan 28 2016 12:46PM NUCLEAR MEDICINE TECHNOLOGIST documented in this encounter Plan of Treatment Not on file documented as of this encounter Procedures Procedure Name Priority Date/Time Associated Diagnosis Comments ANTICOAGULATION 01/28/2016 documented in this encounter Results * ANTICOAGULATION (01/28/2016) Narrative Procedure Note [facility], GENERICPROVIDER - 01/28/2016 12:00 AM CDT [...] and approximately 200 lbs. [facility] bleeding or stroke. [...] summer as he is apart of a [employer]. Drinks green tea onoccasion; encouraged to avoid [...] by:Razia Duarte RN Jan 28 2016 12:46PM NUCLEAR MEDICINE TECHNOLOGIST Genericprovider [facility] OTHER Fi nal Result documented in this encounter Visit Diagnoses Not on filedocumented in this encounter Care Teams Flexographic Press Helper Relationship Specialty Start Date End Date Casey Berry II, DO PCP - General 11/22/06 08/17/19 Stephani Aleman MD PCP - General Family Medicine 08/18/19 09/16/20 Bianka Loera CNP [address] [facility] [address] [place] [phone] PCP - General Nurse Practitioner Family 09/17/2001/10 Desiree Patrick MD [address] [facility] [place] [phone] PCP - General Electrophysiology 02/23/22 03/09/22 Desiree Patrick MD [address] [place] [address] 08/09/17 Farrah Nicole APRN,SCALE SHOOTER [address] [place] [address] 08/09/17 Bry Echevarria MD [address] [place] [address] 08/09/17 Casey Berry II, DO 08/09/17 Shruti Vergara RN RN Registered Nurse 08/27/20 documented as of this encounter Additional Source Comments PLEASE NOTE: Replies to this message will not be received.[facility] and [facility]
--- OUTSIDE RECORDS SUMMARY | 2024-07-13 16:23 | XMS_ITS | Encounter Summary ---
Author Organization [employer] Address [address] [place] [address] Care Team Providers Care Seaming Inspector Name Role Phone Jamal CARLISLE DO, Robert William Primary Care Provide r Unavailable Desiree Patrick MD Unavailable Farrah Nicole APRN,ELECTRONICS ENGINEERING MANAGER Unavailable Bry Echevarria MD Unavailable [phone] Jamal CARLISLE DO, Robert William Unavailable Unav Stephani Diaz MD Primary Care Provider [phone] Shruti Vergara RN Unavailable Unavailable Bianka Loera CNP Primary Care Provider Desiree Patrick MD Primary Care P rovider Encounter Details Date Type Department Care Team (Late st Contact Info) Description 02/11/2016 Historical Conversion [facility] Family Medicine [address] [place] [id number] Moon Maloney MD Social History Tobacco Use Types Packs/Day Years Used Date Smoking Tobacco: Former Cigarettes Q uit: 1978 Alcohol Use Standard Drinks/Week Comments Yes 0 (1 standard drink = 0.6 oz pur e alcohol) occasional Sex and Gender Information Value Date Recorded Sex Assigned at Not on file Legal Sex Male 6:02 AM 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 TORCH 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 Gender Identity Not on file Sexual [...] on filedocumented in this encounter Care Teams Seaming Inspector Relationship Specialty Start Date End Date Casey Berry II, DO PCP - General 11/22/06 08/17/19 Stephani Aleman MD PCP - General Family Medicine 08/18/19 09/16/20 Bianka Loera CNP [address] [place] [address] 2 [place] [address] PCP - General Nurse Practitioner Family 09/17/20 7/2 12/31 Desiree Patrick MD [address] [place] [address] PCP - General Electrophysiology 02/23/22 03/09/22 Desiree aPtrick MD [address] [place] [place] [address] 08/09/17 Farrah Nicole APRN,ELECTRONICS ENGINEERING MANAGER [address] [place] [address] 08/09/17 Bry Echevarria MD [address] [place] [phone] 08/09/17 Casey Berry II, DO 08/09/17 Shruti Vergara RN RN Registered Nurse 08/27/20 documented as of this encounter Additional Source Comments PLEASE NOTE: Replies to this message will not be received.[facility] and [facility]
--- OUTSIDE RECORDS SUMMARY | 2024-07-13 16:23 | XMS_ITS | Encounter Summary ---
Author Organization [employer] Address [address] [place] [address] Care Team Providers Care Release Coordinator Name Role Phone Jamal CARLISLE DO, Robert William Primary Care Provide r Unavailable Desiree Patrick MD Unavailable Farrah Nicole APRN,CALL CENTER ANALYST Unavailable Bry Echevarria MD Unavailable Jamal CARLISLE DO, Robert William Unavailable Unav Stephani Diaz MD Primary Care Provider Shruti Vergara RN Unavailable Unavailable Bianka Loera CNP Primary Care Provider Desiree Patrick MD Primary Care P rovider Encounter Details Date Type Department Care Team (Late st Contact Info) Description 08/27/2016 Historical Conversion [facility] Family Medicine [address] [place] [phone] Moon Maloney MD Social History Tobacco Use Types Packs/Day Years Used Date Smoking Tobacco: Former Cigarettes Q uit: 1978 Alcohol Use Standard Drinks/Week Comments Yes 0 (1 standard drink = 0.6 oz pur e alcohol) occasional Sex and Gender Information Value Date Recorded Sex Assigned at Not on file Legal Sex Male 6:02 AM DIRECTOR SUPPLY CHAIN Gender Identity Not on file Sexual Orientation Not on file documented as of this encounter Last Filed Vital Signs Vital Sign Reading Time Taken Comments Blood Pressure 175/101 08/27/2016 12:00 AM DIRECTOR SUPPLY CHAIN Pulse - - Temperature - - Respiratory Rate - - Oxygen Saturation - - Inhaled Oxygen Concentration - - Weight 95.7 kg (210 lb 15.7 oz) 017 12:00 AM DIRECTOR SUPPLY CHAIN Height - - Body Mass Index 27.84 [...] Entry Date Author No 11/15/2015 11:41 PM CDT Chitra Prince RN documented in this encounter Plan of Treatment Not on file documented as of this encounter Visit Diagnoses Not on filedocumented in this encounter Care Teams Release Coordinator Relationship Specialty Start Date End Date Casey Berry II, DO PCP - General 11/22/06 08/17/19 Stephani Aleman MD PCP - General Family Medicine 08/18/19 09/16/20 Bianka Loera CNP [address] [place] [address] 2 [place] [address] PCP - General Nurse Practitioner Family 09/17/20 7/2 12/31 Desiree Patrick MD [address] [place] [address] PCP - General Electrophysiology 02/23/22 03/09/22 Desiree Patrick MD [address] [place] [address] 08/09/17 Farrah Nicole APRN,[facility] [address] [place] [address] 08/09/17 Bry Echevarria MD [address] [place] [phone] 08/09/17 Casey Berry II, DO 08/09/17 Shruti Vergara RN RN Registered Nurse 08/27/20 documented as of this encounter Additional Source Comments PLEASE NOTE: Replies to this message will not be received.[facility]
--- OUTSIDE RECORDS SUMMARY | 2024-07-13 16:23 | XMS_ITS | Encounter Summary ---
Author Organization [employer] Address [address] [place] [address] Care Team Providers Care Financial Foundations Representative Name Role Phone Jamal CARLISLE DO, Robert William Primary Care Provide r Unavailable Desiree Patrick MD Unavailable Farrah Nicole APRN,ELECTRIC MILKERS INSTALLER Unavailable Bry Echevarria MD Unavailable [phone] Jamal CARLISLE DO, Robert William Unavailable Unav Stephani Diaz MD Primary Care Provider Shruti Vergara RN Unavailable Unavailable Bianka Loera CNP Primary Care Provider Desiree Patrick MD Primary Care P rovider Encounter Details Date Type Department Care Team (Late st Contact Info) Description 03/10/2016 Historical Conversion [facility] Family Medicine [address] [place] [address] Casey Berry II, DO Social History Tobacco Use Types Packs/Day Years Used Date Smoking Tobacco: Former Cigarettes Q uit: 1978 Alcohol Use Standard Drinks/Week Comments Yes 0 (1 standard drink = 0.6 oz pur e alcohol) occasional Sex and Gender Information Value Date Recorded Sex Assigned at Not on file Legal 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 Gender Identity Not on file Sexual Orientation [...] Entry Date Author No 11/15/2015 11:41 PM MAANT Chitra Prince RN documented in this encounter Plan of Treatment Not on file documented as of this encounter Visit Diagnoses Not on filedocumented in this encounter Care Teams Financial Foundations Representative Relationship Specialty Start Date End Date Casey Berry II, DO PCP - General 11/22/06 08/17/19 Stephani Aleman MD PCP - General Family Medicine 08/18/19 09/16/20 Bianka Loera CNP [address] [place] [address] 2 [place] [address] PCP - General Nurse Practitioner Family 09/17/20 7/2 12/31 Desiree Patrick MD [address] [place] [address] PCP - General Electrophysiology 02/23/22 03/09/22 Desiree Patrick MD [address] [place] [address] 08/09/17 Farrah Nicole APRN,ELECTRIC MILKERS INSTALLER [address] [place] [address] 08/09/17 Bry Echevarria MD [address] [place] [phone] 08/09/17 Casey Berry II, DO 08/09/17 Shruti Vergara RN RN Registered Nurse 08/27/20 documented as of this encounter Additional Source Comments PLEASE NOTE: Replies to this message will not be received.[facility]
--- OUTSIDE RECORDS SUMMARY | 2024-07-13 16:23 | XMS_ITS | Encounter Summary ---
Author Organization [employer] Address [address] [place] [address] Care Team Providers Care Ring Facer Name Role Phone Jamal CARLISLE DO, Robert William Primary Care Provide r Unavailable Desiree Patrick MD Unavailable Farrah Nicole APRN,HEAD WAITER/WAITRESS Unavailable Bry Echevarria MD Unavailable Jamal CARLISLE DO, Robert William Unavailable Unav Stephani Diaz MD Primary Care Provider Shruti Vergara RN Unavailable Unavailable Bianka Loera CNP Primary Care Provider [phone] Desiree Patrick MD Primary Care P rovider Encounter Details Date Type Department Care Team (Late st Contact Info) Description 09/02/2016 Historical Conversion [facility] Family Medicine [address] [place] [id number] Casey El II, DO Social History Tobacco Use Types Packs/Day Years Used Date Smoking Tobacco: Former Cigarettes Q uit: 1978 Alcohol Use Standard Drinks/Week Comments Yes 0 (1 standard drink = 0.6 oz pur e alcohol) occasional Sex and Gender Information Value Date Recorded Sex Assigned at Not on file Legal Sex Male 6:02 AM BURNISHER Gender Identity Not on file Sexual Orientation Not on file documented as of this encounter Last Filed Vital Signs Vital Sign Reading Time Taken Comments Blood Pressure 151/81 09/02/2016 12:00 AM BURNISHER Pulse - - Temperature - - Respiratory Rate - - Oxygen Saturation - - Inhaled Oxygen Concentration - - Weight 93.5 kg (206 lb 2.1 oz) 09/02/2016 12:00 AM BURNISHER Height 185.1 cm (6' 0.87) 09/02/2016 12:00 AM Saúl WARE Body Mass Index 27.29 09/02/2016 12:00 AM BURNISHER documented in this encounter Functional Status * Are you deaf or do you have serious difficulty hearing? Answer Date of Assessment Author No 11/15/2015 11:12 PM CDT Chitra Prince RN * Are you blind or do you have serious difficulty seeing, even when wearing glasses? Answer Date of Assessment Author No 11/15/2015 11:41 PM Chitra Chapman RN * Do you have serious difficulty walking or climbing stairs? Answer Date of Assessment Author No 11/15/2015 11:41 PM Chitra Chapman RN * Do you have difficulty dressing or bathing? Answer Date of Assessment Author No 11/15/2015 11:41 PM MANAT Chitra Prince RN * Do you have difficulty doing errands alone such as visiting a doctor's office or shopping because of a physical, mental, or emotional condition? Answer Date of Assessment Author No 11/15/2015 11:41 PM Chitra Chapman RN documented as of this encounter Mental Status * Do you have trouble concentrating, remembering, or making decisions because of a physical, mental, or emotional condition? Answer Entry Date Author No 11/15/2015 11:41 PM Chitra Chapman RN documented in this encounter Progress Notes * Casey El II, - 04/06/2017 12:00 AM CDT Assessment 1. [...] as needed; Therapy: 10Sep2014 to Requested for: [id number] Recorded 7. Metoprolol Tartrate 50 MG Oral Tablet; TAKE 1 TABLET TWICE DAILY; Therapy: (Recorded:21Oct2016) to Recorded 8. Tylenol Extra Strength 500 MG Oral Tablet; Therapy: (Recorded:18Nov2015) to Recorded 9. Warfarin Sodium 5 MG Oral Tablet; Take as directed by ACC; Therapy: 16Zin8653 to (Evaluate:03Slc2329) Requested for: 55Quy0002; Last Rx:[id number] Ordered Allergies 1. Penicillins 2. Sulfa Drugs [...] Casey El DO; Apr 16 2017 8:13AM BURNISHER * Casey El II, DO - 11/30/2016 [...] healthy by no longer smoking.; Status:Complete; Done: 30Nov2016 Counseling Total time of encounter was 20 [...] first. At this point in time, the Environmental Education Specialist has not stated that he a risk [...] Tablet; Take as directed by ACC; Therapy: 14Rdf7872 to (Evaluate:11Sca8449) Requested for: 17Nov2016 Recorded Allergies 1. Penicillins 2. Sulfa Drugs Vitals Recorded: 30Nov2016 10:12AM Systolic 121 Diastolic 83 Heart Rate 106 Respiration 20 Temperature 98 F Weight 94.2 kg BMI Calculated 27.49 BSA Calculated 2.18 O2 Saturation 97 Physical Exam Deferred. Signatures Casey El II, D.OWilliam/pj-30 Electronically signed by : Casey El DO; Dec 09 2016 1:14PM BURNISHER * Casey El II, DO - 10/26/2016 12:00 AM CDT Assessment 1. Former smoker: 0 - 10 pack years (V15.82) (Z87.891) Atrial fibrillation/flutter. Plan Awaiting Holter monitor to see what is going to be done next with the Environmental Education Specialist and most likely,Electrophysiology. We finally did get the results from the Holter which showed flutter and they will send him to see the Superannuation Funds Manager. Reason For Visit patient in for hospital [...] as directed by ACC; Therapy: 28Jan2016 to (Evaluate:55Qvx7532) Requested for: 14Jul2016 Recorded Allergies 1. Penicillins 2. Sulfa Drugs Vitals Recorded: 92Fkv3021 10:40AM Systolic 117, RUE, Sitting Diastolic 73, [...] Casey El DO; Nov 06 2016 8:45AM BURNISHER documented in this encounter H&P Notes * [...] Panel; Status:Hold For - Manual Activation; Requested for:95Qpy7425; Hemoglobin A1C; Status:Hold For - Manual Activation; Requested for:11Zsx1971; SocHx: Former smoker: 0 - 10 pack years Former Smoker: Since tobacco use can have significant health risks, you are helping yourself and others stay healthy by no longer smoking.; Status:Complete; Done: 86Rtk5368 Reason For Visit H & P History [...] alcohol. 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 Colonoscopy in 2009. Pneumovax 2009. Prevnar 2015. Current Meds 1. Lisinopril 10 MG Oral Tablet; TAKE 1 TABLET BY MOUTH ONCE DAILY; Therapy: 11Eti5868 to (Evaluate:10Ywf1165) Requested for: 13Jul2016; Last Rx:13Jul2016 Ordered 2. Metoclopramide HCl - 5 MG Oral Tablet; TAKE 1 TABLET as needed; Therapy: 10Sep2014 to Requested for: 01Qzn3367 Recorded 3. Metoprolol Tartrate 25 MG Oral Tablet; 1 prn a fib; Therapy: (Recorded:14Heh0742) to Requested for: 94Udb4216 Recorded 4. Tylenol Extra Strength 500 MG Oral Tablet; Therapy: (Recorded:19Uuk1578) to Recorded 5. Warfarin Sodium 5 MG Oral Tablet; Take as directed by ACC; Therapy: 01Whw2893 to (Evaluate:73Ukt1908) Requested for: 14Jul2016 Recorded Allergies 1. Penicillins [...] rash. /RECTAL: Done by urology. Results/Data PHQ-9 [id number] 12:00AM Casey El Test Name Result Flag Reference PHQ-9 0 Alcohol & Drug Questionnaire for Adults 19Ora3664 12:00AM Casey El Test Name Result Flag Reference Alcohol & Drug Questionnaire for Adults 3 Nurse Note Pt given heel cups by dr el. #[id number] qty 2. 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 mquam agriculture laborer Signatures Casey El II, D.O./la-3 Electronically signed by : Casey El DO; Sep 11 2016 1:25PM BURNISHER Electronically signed by : Casey El DO; Sep 16 2016 12:34PM BURNISHER documented in this encounter Plan of Treatment Not on file documented as of this encounter Visit Diagnoses Not on filedocumented in this encounter Care Teams Ring Facer Relationship Specialty Start Date End Date Casey El II, DO PCP - General 11/22/06 08/17/19 Stephani Aleman MD PCP - General Family Medicine 08/18/19 09/16/20 Bianka Loera CNP [address] [place] [address] PCP - General Nurse Practitioner Family 09/17/2001/10 Desiree Patrick MD [address] [place] [address] PCP - General Electrophysiology 02/23/22 03/09/22 Desiree Patrick MD [address] [place] [address] 08/09/17 Farrah Nicole APRN,HEAD WAITER/WAITRESS [address] [place] [address] 08/09/17 Bry Echevarria MD [address] [facility] [place] [phone] 08/09/17 Casey El II, DO 08/09/17 Shruti Vergara, RN RN Registered Nurse 08/27/20 documented as of this encounter Additional Source Comments PLEASE NOTE: Replies to this message will not be received.[facility] and [facility]
--- OUTSIDE RECORDS SUMMARY | 2024-07-13 16:23 | XMS_ITS | Encounter Summary ---
Author Organization [employer] Address [address] [place] [address] Care Team Providers Care Competitive Shopper Name Role Phone Jamal CARLISLE DO, Robert William Primary Care Provide r Unavailable Desiree Patrick MD Unavailable Farrah Nicole APRN,SOLID PROPELLANT PROCESSOR Unavailable Bry Echevarria MD Unavailable Jamal CARLISLE DO, Robert William Unavailable Unav Stephani Diaz MD Primary Care Provider Shruti Vergara RN Unavailable Unavailable Bianka Loera CNP Primary Care Provider [phone] Desiree Patrick MD Primary Care P rovider Encounter Details Date Type Department Care Team (Late st Contact Info) Description 10/26/[address] [facility] Family Medicine [address] [place] [address] Casey Berry II, DO Social History Tobacco Use Types Packs/Day Years Used Date Smoking Tobacco: Former Cigarettes Q uit: 1978 Alcohol Use Standard Drinks/Week Comments Yes 2 (1 standard drink = 0.6 oz pur e alcohol) 1-2 beers daily Sex and Gender Information Value Date Recorded Sex Assigned at Not on file Legal Sex Male 6:02 AM LADLE PULLER Gender Identity Not on file Sexual Orientation [...] on filedocumented in this encounter Care Teams Competitive Shopper Relationship Specialty Start Date End Date Casey Berry II, DO PCP - General 11/22/06 08/17/19 Stephani Aleman MD PCP - General Family Medicine 08/18/19 09/16/20 Bianka Loera CNP [address] [place] [phone] PCP - General Nurse Practitioner Family 09/17/20 7/2 12/31 Desiree Patrick MD [address] [place] [address] PCP - General Electrophysiology 02/23/22 03/09/22 Desiree Patrick MD [address] [place] [address] 08/09/17 Farrah Nicole APRN,SOLID PROPELLANT PROCESSOR [address] [place] [address] 08/09/17 Bry Echevarria MD [address] [place] [address] 08/09/17 Casey Berry II, DO 08/09/17 Shruti Vergara RN RN Registered Nurse 08/27/20 documented as of this encounter Additional Source Comments PLEASE NOTE: Replies to this message will not be received.[facility] and [facility]
--- OUTSIDE RECORDS SUMMARY | 2024-07-13 16:23 | XMS_ITS | Encounter Summary ---
Author Organization [employer] Address [address] [place] [address] Care Team Providers Care Team Facilitator Name Role Phone Jamal CARLISLE DO, Robert William Primary Care Provide r Unavailable Desiree Patrick MD Unavailable Farrah Nicole APRN,ACCOUNTS RECEIVABLE COORDINATOR Unavailable Bry Echevarria MD Unavailable Jamal CARLISLE DO, Robert William Unavailable Unav Stephani Diaz MD Primary Care Provider Shruti Vergara RN Unavailable Unavailable Bianka Loera CNP Primary Care Provider [phone] Desiree Patrick MD Primary Care P rovider Encounter Details Date Type Department Care Team (Late st Contact Info) Description 10/17/2016 Historical Conversion [facility] Family Medicine [address] [place] [id number] Social History Tobacco Use Types Packs/Day Years Used Date Smoking Tobacco: Former Cigarettes Q uit: 1979 Alcohol Use Standard Drinks/Week Comments Yes 2 (1 standard drink = 0.6 oz pur e alcohol) 1-2 beers daily Sex and Gender Information Value Date Recorded Sex Assigned at Not on file Legal Sex Male 6:02 AM HYDRAULIC BILLET MAKER Gender Identity Not on file Sexual Orientation Not on file documented as of this encounter Functional Status * Question Answer Date of Assessment Author Do you use any assistive dev ices for daily activities? No 10/17/2016 9:04 PM CDT Clare Bruno R N Do you have serious difficul ty walking or climbing stairs? No 10/17/2016 9:04 PM CDT Sobeida Bruno RN Do you have difficulty dress ing or bathing? No 10/17/2016 9:04 PM CDT Clare Bruno RN Do you have difficulty doing errands alone such as visiting a doctor's office or shopping because of a physical, mental, or emotional condition? No 10/17/2016 9:04 PM CDT Clare Bruno RN * Question Answer Date of Assessment Author Do you have trouble concentr ating, remembering, or making decisions because of a physical, mental, or emotional condition? No 10/17/2016 9:04 PM CDT Clare Bruno R N * Question Answer Date of Assessment Author Speech Clear, fluent 10/20/2016 5:32 AM CDT Joi Canas RN Swallow Difficulty swallowing 10/20/2016 5:[address] RN * Are you deaf or do you have serious difficulty hearing? Answer Date of Assessment Author Yes 10/17/2016 2:31 PM CDT Lydia Ha RN * Are you blind or do you have serious difficulty seeing, even when wearing glasses? Answer Date of Assessment Author No 10/17/2016 2:31 PM CDT Lydia Ha RN * Do you have serious difficulty walking or climbing stairs? Answer Date of Assessment Author No 10/17/2016 2:31 PM CDT Lydia Ha RN * Do you have difficulty dressing or bathing? Answer Date of Assessment Author No 10/17/2016 2:31 PM CDT Lydia Ha RN * Do you have difficulty doing errands alone such as visiting a doctor's office or shopping because of a physical, mental, or emotional condition? Answer Date of Assessment Author No 10/17/2016 2:31 PM CDT Lydia Ha RN documented as of this encounter Mental Status * Question Answer Entry Date Author Is the patient displaying em otional, behavioral, or substance abuse problems which have the potential to be a concern? No 10/17/2016 9:04 PM CDT Clare Bruno RN * Question Answer Entry Date Author Are you in a relationship wh ere you are physically hurt, threatened and/or made to feel afraid? No 10/17/2016 9:04 PM CDT Sobeida Bruno RN * Question Answer Entry Date Author Financial assistance for you r hospital stay may be available. Would you like information or help with this? No 10/17/2016 9:04 PM CDT Clare Bruno RN Has stress or anxiety made i t difficult for you to complete daily tasks or get along with others? No 10/17/2016 9:04 PM CDT Clare Harrell RN * Question Answer Entry Date Author Do you have trouble concentr ating, remembering, or making decisions because of a physical, mental, or emotional condition? No 10/17/2016 9:04 PM CDT Clare Bruno, R N * Medical Mental Health Assessment Question Answer Entry Date Author Medical Mental Health Assessment [facility] 10/21/19 17 4:00 PM CDT Gabrielle Brower RN * Question Answer Entry Date Author Speech Clear, fluent 10/20/2016 5:32 AM CDT Joi Canas RN LOC Awake 10/20/2016 5:32 AM CDT Joi Pagan RN Orientation WDL 10/20/2016 5:32 AM CDT Joi Pagan RN Cognition Nonimpulsive 10/20/2016 5:32 AM CDT Joi Pagan RN Swallow Difficulty swallowing 10/20/2016 5:[address] RN * Do you have trouble concentrating, remembering, or making decisions because of a physical, mental, or emotional condition? Answer Entry Date Author No 10/17/2016 2:31 PM CDT Lydia Ha RN documented in this encounter Nursing Notes * [facility] - 10/17/2016 12:00 AM CDT Rohan presented to Urgent Care with complaint of feeling like his heart is racing, he can feel it pounding and a tighness in his chest occurs when this happens. He was seen at [facility] 10 days ago for an episode [...] to be evaluatedin the Emergency Room at [facility]. Patient and his elected to go by private car with patients driving. Electronically signed by:Tammy Coronado RN Oct 17 2016 2:09PM HYDRAULIC BILLET MAKER AMENDMENTS: 1. Patient declines shortness of breath, radiating neck pain, shoulderblade pain or sternal pain. Electronically signed by:Tammy Coronado RN Oct 17 2016 2:14PM HYDRAULIC BILLET MAKER documented in this encounter Plan of Treatment Not on file documented as of this encounter Visit Diagnoses Not on filedocumented in this encounter Care Teams Team Facilitator Relationship Specialty Start Date End Date Casey Berry II, DO PCP - General 11/22/06 08/17/19 Stephani Aleman MD PCP - General Family Medicine 08/18/19 09/16/20 Bianka Loera CNP [address] [facility] [address] [place] [address] PCP - General Nurse Practitioner Family 09/17/2001/10 Desiree Patrick MD [address] [place] [address] PCP - General Electrophysiology 02/23/22 03/09/22 Desiree Patrick MD [address] [place] [address] 08/09/17 Farrah Nicole APRN,ACCOUNTS RECEIVABLE COORDINATOR [address] [place] [address] 08/09/17 Bry Echevarria MD [address] [place] [phone] 08/09/17 Casey Berry II, DO 08/09/17 Shruti Vergara RN RN Registered Nurse 08/27/20 documented as of this encounter Additional Source Comments PLEASE NOTE: Replies to this message will not be received.[facility] and [facility]
--- OUTSIDE RECORDS SUMMARY | 2024-07-13 16:23 | XMS_ITS | Encounter Summary ---
Author Organization [employer] Address [address] [place] [address] Care Team Providers Care Cloth Printer Helper Name Role Phone Jamal CARLISLE DO, Robert William Primary Care Provide r Unavailable Desiree Patrick MD Unavailable Farrah Nicole APRN,ALMOND CUTTING MACHINE TENDER Unavailable [phone] Bry Echevarria MD Unavailable Jamal CARLISLE DO, Robert William Unavailable Unav xiable Stephani Aleman MD Primary Care Provider [phone] Shruti Vergara RN Unavailable Unavailable Bianka Loera CNP Primary Care Provider Desiree Patrick MD Primary Care P rovider Encounter Details Date Type Department Care Team (Late st Contact Info) Description 10/09/2016 Historical Conversion [facility] Family Medicine [address] [facility] [place] [address] Jana Aleman APRN,MIXER WET POUR [address] [place] [address] Social History Tobacco Use Types Packs/Day Years Used Date Smoking Tobacco: Former Cigarettes Q uit: 1978 Alcohol Use Standard Drinks/Week Comments Yes 2 (1 standard drink = 0.6 oz pur e alcohol) 1-2 beers daily Sex and Gender Information Value Date Recorded Sex Assigned at Not on file Legal Sex Male 6:02 AM CONTRACT PREPARER Gender Identity Not on file Sexual Orientation [...] Chitra Prince RN documented in this encounter Progress Notes * Jana Aleman, CREDIT RISK ANALYST,MIXER WET POUR - 10/09/2016 12:00 AM CDT Assessment 1. [...] [facility] with [facility] [place] He is instructed to return should his [...] Thao Phone Number to Contact Patient: : [phone] to Provider, Practice or Agency: : Either [facility] or [facility] Reason For Visit Patient in [...] 1 TABLET BY MOUTH ONCE DAILY; Therapy: 68Nur4754 to (Evaluate:16Jpj6419) Requested for: 13Jul2016; Last Rx:13Jul2016 Ordered 3. Metoclopramide HCl - 5 MG Oral Tablet; TAKE 1 TABLET as needed; Therapy: 10Sep2014 to Requested for: 02Sep2016 Recorded 4. Metoprolol Tartrate 25 MG Oral Tablet; 1 prn a fib; Therapy: (Recorded:02Sep2016) to Requested for: 85Ith9414 Recorded 5. Tylenol Extra Strength 500 MG Oral Tablet; Therapy: (Recorded:17Ydr2614) to Recorded 6. Warfarin Sodium 5 MG Oral Tablet; Take as directed by ACC; Therapy: 88Bbl7856 to (Evaluate:90Yph7500) Requested for: 14Jul2016 Recorded Allergies 1. Penicillins [...] Electronically signed by : Jana Aleman RN MIXER WET POUR RN,MIXER WET POUR; Oct 18 2016 1:54PM CONTRACT PREPARER Electronically signed by : Casey Berry DO; Oct 22 2016 1:20PM CONTRACT PREPARER documented in this encounter Plan of Treatment Not on file documented as of this encounter Visit Diagnoses Not on filedocumented in this encounter Care Teams Cloth Printer Helper Relationship Specialty Start Date End Date Casey Berry II, DO PCP - General 11/22/06 08/17/19 Stephani Aleman MD PCP - General Family Medicine 08/18/19 09/16/20 Bianka Loera, MIXER WET POUR [address] [place] [address] PCP - General Nurse Practitioner Family 09/17/2001/10 Desiree Patrick MD [address] [place] [address] PCP - General Electrophysiology 02/23/22 03/09/22 Desiree Patrick MD [address] [place] [address] 08/09/17 Farrah Nicole APRN,ALMOND CUTTING MACHINE TENDER [address] [place] [address] 08/09/17 Bry Echevarria MD [address] [place] [address] 08/09/17 Casey Berry II, DO 08/09/17 Shruti Vergara RN RN Registered Nurse 08/27/20 documented as of this encounter Additional Source Comments PLEASE NOTE: Replies to this message will not be received.[facility]
--- OUTSIDE RECORDS SUMMARY | 2024-07-13 16:23 | XMS_ITS | Encounter Summary ---
Author Organization [employer] Address [address] [place] [address] Care Team Providers Care Neonatal Critical Care Nurse Name Role Phone Jamal CARLISLE DO, Robert William Primary Care Provide r Unavailable Desiree Patrick MD Unavailable Farrah Nicole APRN,PARTS ASSEMBLER Unavailable Bry Echevarria MD Unavailable [phone] Jamal CARLISLE DO, Robert William Unavailable Unav Stephani Diaz MD Primary Care Provider Shruti Vergara RN Unavailable Unavailable Bianka Loera CNP Primary Care Provider Desiree Patrick MD Primary Care P rovider Encounter Details Date Type Department Care Team (Late st Contact Info) Description 06/24/2016 Historical Conversion [facility] Family Medicine [address] [place] [address] Casey Berry II, DO Social History Tobacco Use Types Packs/Day Years Used Date Smoking Tobacco: Former Cigarettes Q uit: 1978 Alcohol Use Standard Drinks/Week Comments Yes 0 (1 standard drink = 0.6 oz pur e alcohol) occasional Sex and Gender Information Value Date Recorded Sex Assigned at Not on file Legal Sex Male 6:02 AM CARBON CAPTURE POWER PLANT OPERATOR Gender Identity Not on file Sexual Orientation Not on file documented as of this encounter Last Filed Vital Signs Vital Sign Reading Time Taken Comments Blood Pressure 115/76 06/24/2016 12:00 AM CARBON CAPTURE POWER PLANT OPERATOR Pulse - - Temperature - - Respiratory Rate - - Oxygen Saturation - - Inhaled Oxygen Concentration - - Weight 91.5 kg (201 lb 11.5 oz) 016 12:00 AM CARBON CAPTURE POWER PLANT OPERATOR Height - - Body Mass Index 26.61 [...] on filedocumented in this encounter Care Teams Neonatal Critical Care Nurse Relationship Specialty Start Date End Date Casey Berry II, DO PCP - General 11/22/06 08/17/19 Stephani Aleman MD PCP - General Family Medicine 08/18/19 09/16/20 Bianka Loera CNP [address] [place] [address] [address] [place] [address] PCP - General Nurse Practitioner Family 09/17/20 7/2 12/31 Desiree Patrick MD [address] [place] [address] PCP - General Electrophysiology 02/23/22 03/09/22 Desiree Patrick MD [address] [place] [address] 08/09/17 Farrah Nicole APRN,PARTS ASSEMBLER [address] [place] [address] 08/09/17 Bry Echevarria MD [address] [place] [address] 08/09/17 Casey Berry II, DO 08/09/17 Shruti Vergara RN RN Registered Nurse 08/27/20 documented as of this encounter Additional Source Comments PLEASE NOTE: Replies to this message will not be received.[facility] and [facility]
--- OUTSIDE RECORDS SUMMARY | 2024-07-13 16:23 | XMS_ITS | Encounter Summary ---
Author Organization [employer] Address [address] [place] [address] Care Team Providers Care Communications And Signals Supervisor Name Role Phone Jamal CARLISLE DO, Robert William Primary Care Provide r Unavailable Desiree Patrick MD Unavailable Farrah Nicole APRN,LINE MAINTAINER SECTION Unavailable Bry Echevarria MD Unavailable Jamal CARLISLE DO, Robert William Unavailable Unav Stephani Diaz MD Primary Care Provider Shruti Vergara RN Unavailable Unavailable Bianka Loera CNP Primary Care Provider Desiree Patrick MD Primary Care P rovider Encounter Details Date Type Department Care Team (Late st Contact Info) Description 10/08/2016 Historical Conversion [facility] Family Medicine [address] [place] [id number] Social History Tobacco Use Types Packs/Day Years Used Date Smoking Tobacco: Former Cigarettes Q uit: 1979 Alcohol Use Standard Drinks/Week Comments Yes 2 (1 standard drink = 0.6 oz pur e alcohol) 1-2 beers daily Sex and Gender Information Value Date Recorded Sex Assigned at Not on file Legal Sex Male 6:02 AM DIE REPAIRER FORGING Gender Identity Not on file Sexual Orientation [...] Chitra Chapman RN documented in this encounter Nursing Notes * [facility], [facility] - 10/08/2016 12:00 AM CDT Patient calls triage with complaints of elevated heart rate in the 140's since Wednesday morning. He states that he has taken his prescribed Beta-Blockers multiple times and they have not been helping with the elevated heart rate as they should be. Patient denies any shortness of breath, dizziness, lig htheadedness, chest pain or confusion. Patient instructed by adjusto writer operator to go to the Emergency Room at [facility] to be evaluated. Patient verbalized understanding of instructions. STACY MCCAULEY Electronically signed by:Tammy Coronado RN Oct 08 2016 8:22AM DIE REPAIRER FORGING documented in this encounter Plan of Treatment Not on file documented as of this encounter Visit Diagnoses Not on filedocumented in this encounter Care Teams Communications And Signals Supervisor Relationship Specialty Start Date End Date Casey Berry II, DO PCP - General 11/22/06 08/17/19 Stephani Aleman MD PCP - General Family Medicine 08/18/19 09/16/20 Bianka Loera CNP [address] [place] [address] PCP - General Nurse Practitioner Family 09/17/2001/10 Desiree Patrick MD [address] [place] [address] PCP - General Electrophysiology 02/23/22 03/09/22 Desiree Patrick MD [address] [place] [address] 08/09/17 Farrah Nicole APRN,LINE MAINTAINER SECTION [address] [place] [address] 08/09/17 Bry Echevarria MD [address] [place] [id number] 08/09/17 Casey Berry II, DO 08/09/17 Shruti Vergara, RN RN Registered Nurse 08/27/20 documented as of this encounter Additional Source Comments PLEASE NOTE: Replies to this message will not be received.[facility] and [facility]
--- OUTSIDE RECORDS SUMMARY | 2024-07-13 16:23 | XMS_ITS | Encounter Summary ---
Author Organization [employer] Address [address] [place] [address] Care Team Providers Care Wastewater Treatment Plant Operator Name Role Phone Jamal CARLISLE DO, Robert William Primary Care Provide r Unavailable Desiree Patrick MD Unavailable Farrah Nicole APRN,FRICKERTRON CHECKER Unavailable Bry Echevarria MD Unavailable [phone] Jamal CARLISLE DO, Robert William Unavailable Unav Stephani Diaz MD Primary Care Provider [phone] Shruti Vergara RN Unavailable Unavailable Bianka Loera CNP Primary Care Provider Desiree Patrick MD Primary Care P rovider Encounter Details Date Type Department Care Team (Late st Contact Info) Description 10/17/2016 Historical Conversion [facility] Family Medicine [address] [place] [id number] Social History Tobacco Use Types Packs/Day Years Used Date Smoking Tobacco: Former Cigarettes Q uit: 1979 Alcohol Use Standard Drinks/Week Comments Yes 2 (1 standard drink = 0.6 oz pur e alcohol) 1-2 beers daily Sex and Gender Information Value Date Recorded Sex Assigned at Not on file Legal Sex Male 6:02 AM SANDBLAST OPERATOR Gender Identity Not on file Sexual [...] documented in this encounter Functional Status * Question Answer Date of Assessment Author Do you use any assistive dev ices for daily activities? No 10/17/2016 9:04 PM CDT Clare Bruno RN Do you have serious difficul ty walking or climbing stairs? No 10/17/2016 9:04 PM CDT Sobeida Bruno RN Do you have difficulty dress ing or bathing? No 10/17/2016 9:04 PM CDT Clare Bruno RN Do you have difficulty doing errands alone such as visiting a doctor's office or shopping because of a physical, mental, or emotional condition? No 10/17/2016 9:04 PM CDT Clare Burno RN * Question Answer Date of Assessment Author Do you have trouble concentr ating, remembering, or making decisions because of a physical, mental, or emotional condition? No 10/17/2016 9:04 PM CDT Clare Bruno, R N * Question Answer Date of [...] No 10/17/2016 9:04 PM CDT Clare Bruno, Ramo N * Medical Mental Health Assessment Question Answer Entry Date Author Medical Mental Health Assessment [facility] 10/21/19 17 4:00 PM CDT Gabrielle Brower [...] Lydia Ha RN documented in this encounter Plan of Treatment Not on file documented as of this encounter Visit Diagnoses Not on filedocumented in this encounter Care Teams Wastewater Treatment Plant Operator Relationship Specialty Start Date End Date Casey Berry II, DO PCP - General 11/22/06 08/17/19 Stephani Aleman MD PCP - General Family Medicine 08/18/19 09/16/20 Bianka Loera CNP [address] [place] [address] PCP - General Nurse Practitioner Family 09/17/2001/10 Desiree Patrick MD [address] [place] [address] PCP - General Electrophysiology 02/23/22 03/09/22 Desiree Patrick MD [address] [place] [address] 08/09/17 Farrah Nicole APRN,FRICKERTRON CHECKER [address] [place] [address] 08/09/17 Bry Echevarria MD [address] [facility] [place] [phone] 08/09/17 Casey Berry II, DO 08/09/17 Shruti Vergara, RN RN Registered Nurse 08/27/20 documented as of this encounter Additional Source Comments PLEASE NOTE: Replies to this message will not be received.[facility] and [facility]
--- OUTSIDE RECORDS SUMMARY | 2024-07-13 16:23 | XMS_ITS | Encounter Summary ---
Author Organization [employer] Address [address] [place] [address] Care Team Providers Care Seed Cleaner Name Role Phone Jamal CARLISLE DO, Robert William Primary Care Provide r Unavailable Desiree Patrick MD Unavailable Farrah Nicole APRN,CLAIMS PROCESSOR Unavailable Bry Echevarria MD Unavailable Jamal CARLISLE DO, Robert William Unavailable Unav Stephani Diaz MD Primary Care Provider Shruti Vergara RN Unavailable Unavailable Bianka Loera CNP Primary Care Provider Desiree Patrick MD Primary Care P rovider Encounter Details Date Type Department Care Team (Late st Contact Info) Description 01/31/2016 Historical Conversion [facility] Family Medicine [address] [place] [id number] Social History Tobacco Use Types Packs/Day Years Used Date Smoking Tobacco: Former Cigarettes Q uit: 1979 Alcohol Use Standard Drinks/Week Comments Yes 0 (1 standard drink = 0.6 oz pur e alcohol) occasional Sex and Gender Information Value Date Recorded Sex Assigned at Not on file Legal Sex Male 6:02 AM WOUND CARE COORDINATOR Gender Identity Not on file Sexual [...] Chitra Chapman RN documented in this encounter Procedure Notes * [facility]14/2017 12:00 AM CDTAssociated Order(s): ANTICOAGULATION Anticoagulation Clinic [facility] Name: CRISTIAN BLEDSOE : 1945 DOS: 01/14/2017 [...] by:Tiffani Carrero RN Jan 14 2017 11:11AM WOUND CARE COORDINATOR * [facility], MICHEL[facility] - 12/23/2016 12:00 AM CDTAssociated Order(s): ANTICOAGULATION Anticoagulation Clinic [facility] Name: CRISTIAN BLEDSOE : 1945 DOS: 12/23/2016 This is a patient of Dr. Berry. He is here today for an anticoagulation assessment and INR check fora diagnosis of atrial fibrillation. Patient states that he has been feeling well. He reports that he met with Dr. Conroy at the [facility] and will begin radiation [...] by:Tiffani Carrero RN Dec 23 2016 11:30AM WOUND CARE COORDINATOR * [facility] 12/02/2016 12:00 AM CDTAssociated Order(s): ANTICOAGULATION Anticoagulation Clinic [facility] Name: CRISTINA BLEDSOE : 1945 DOS: 12/02/2016 This is a patient of Dr. Berry. He is here today for an anticoagulation assessment and INR check fora diagnosis of atrial fibrillation. Patient states that he has been feeling well. He reports that he will met with Dr. Conroy at the [facility] and has an appointment there [...] by:Tiffani Carrero RN Dec 02 2016 4:10PM WOUND CARE COORDINATOR * [facility] - 11/17/2016 12:00 AM CDTAssociated Order(s): ANTICOAGULATION Anticoagulation Clinic [facility] Name: CRISTIAN BLEDSOE : 1945 DOS: 11/17/2016 [...] has an appointment next week with an internal corrosion specialist to discuss a possible ablation. Patient denies any medication changes. INR tested today is therapeutic at 2.7 with the recommended range of 2.0 to 3.0. Patient will continue Coumadin at 5 mg daily with an INR recheck in two weeks. Patient verbalizes understanding. Electronically signed by:Tiffani Carrero RN Nov 17 2016 9:36AM WOUND CARE COORDINATOR * [facility] - 11/10/2016 12:00 AM CDTAssociated Order(s): ANTICOAGULATION Anticoagulation Clinic [facility] Name: CRISTIAN BLEDSOE : 1945 DOS: 11/10/2016 [...] by:Tiffani Carrero RN Nov 10 2016 2:41PM WOUND CARE COORDINATOR * [facility] MICHELLEPROVIBRANDO - 10/29/2016 12:00 AM CDTAssociated Order(s): ANTICOAGULATION Anticoagulation [facility] Name: CRISTIAN BLEDSOE : 1945 DOS: 10/29/2016 [...] by:Tiffani Carrero RN Oct 29 2016 3:44PM WOUND CARE COORDINATOR * [facility], MICHELLEPROVIBRANDO - 10/23/2016 12:00 AM CDTAssociated Order(s): ANTICOAGULATION Anticoagulation [facility] Name: CRISTIAN BLEDSOE : 1945 DOS: 10/23/2016 This is a patient of Dr. Berry. He is taking anticoagulation for a diagnosis of atrial fibrillation.He is scheduled for a prostate biopsy today at the [facility] with Dr. Maloney. Patient had his INR checked in the [facility] lab prior to his procedure [...] by:Tiffani Carrero RN Oct 26 2016 9:49AM WOUND CARE COORDINATOR * [facility], GENERICPROVID[facility] - 10/13/2016 12:00 AM CDTAssociated Order(s): ANTICOAGULATION Anticoagulation Clinic [facility] Name: CRISTIAN BLEDSOE : 1945 DOS: 10/13/2016 [...] will have his INR checked at the [facility] prior to his biopsy which [...] by:Tiffani Carrero RN Oct 13 2016 12:13PM WOUND CARE COORDINATOR AMENDMENTS: 1. Patient states that he was in the [facility] ER on October 08 with a rapid [...] by:Tiffani Carrero RN Oct 13 2016 12:36PM WOUND CARE COORDINATOR * [facility] - 09/15/2016 12:00 AM CSTAssociated Order(s): ANTICOAGULATION Anticoagulation [facility] Name: CRISTIAN BLEDSOE : 1945 DOS: 09/15/2016 [...] by:Tiffani Carrero RN Sep 15 2016 2:04PM WOUND CARE COORDINATOR * [facility] - 08/18/2016 12:00 AM CSTAssociated Order(s): ANTICOAGULATION Anticoagulation Clinic [facility] Name: CRISTIAN BLEDSOE : 1945 DOS: 08/18/2016 [...] by:Tiffani Carrero RN Aug 18 2016 2:21PM WOUND CARE COORDINATOR * [facility] - 07/28/2016 12:00 AM CSTAssociated Order(s): ANTICOAGULATION Anticoagulation [facility] Name: CRISTIAN BLEDSOE : 1945 DOS: 07/28/2016 [...] by:Tiffani Carrero RN Jul 28 2016 11:06AM WOUND CARE COORDINATOR * [facility], GENERICPROVID[facility] - 07/14/2016 12:00 AM CSTAssociated Order(s): ANTICOAGULATION Anticoagulation [facility] Name: CRISTIAN BLEDSOE : 1945 DOS: 07/14/2016 [...] Patient will adjust Coumadin to 7.5 mg Chidi, Wednesday and 5 mg all other days with a recheck in two weeks. He verbalizes understanding. Electronically signed by:Tiffani Carrero RN Jul 14 2016 11:21AM WOUND CARE COORDINATOR * [facility] GENER[facility]OVID[facility] - 06/30/2016 12:00 AM CSTAssociated Order(s): ANTICOAGULATION Anticoagulation [facility] Name: CRISTIAN BLEDSOE : 1945 DOS: 06/30/2016 [...] by:Tiffani Carrero RN Jun 30 2016 9:24AM WOUND CARE COORDINATOR * [facility]OVID[facility] - 05/20/2016 12:00 AM CSTAssociated Order(s): ANTICOAGULATION Anticoagulation [facility] Name: CRISTIAN BLEDSOE : 1945 DOS: 05/20/2016 [...] by:Tiffani Carrero RN May 20 2016 3:59PM WOUND CARE COORDINATOR * [facility] - 04/15/2016 12:00 AM CDTAssociated Order(s): ANTICOAGULATION Anticoagulation [facility] Name: CRISTIAN BLEDSOE : 1945 DOS: 04/15/2016 [...] high dose Fluzone injection for 2015 during his appointment today. Electronically signed by:Tiffani Carrero RN Apr 15 2016 5:55PM WOUND CARE COORDINATOR * [facility] - 03/18/2016 12:00 AM CDTAssociated Order(s): ANTICOAGULATION Anticoagulation Clinic [facility] Name: CRISTIAN BLEDSOE : 1945 DOS: 03/18/2016 [...] by:Tiffani Carrero RN Mar 18 2016 9:42AM WOUND CARE COORDINATOR * [facility]OVID[facility] - 03/09/2016 12:00 AM CDTAssociated Order(s): ANTICOAGULATION [...] Tiffani Carrero RN; Mar 09 2016 9:59AM WOUND CARE COORDINATOR * [facility] - 02/27/2016 12:00 AM CDTAssociated Order(s): ANTICOAGULATION Anticoagulation Clinic [facility] Name: CRISTIAN BLEDSOE : 1945 DOS: 02/27/2016 [...] by:Tiffani Carrero RN Feb 27 2016 12:04PM WOUND CARE COORDINATOR * [facility] GENER[facility]OV[facility]O - 02/12/2016 12:00 AM CDTAssociated Order(s): ANTICOAGULATION Anticoagulation Clinic [facility] Name: CRISTIAN BLEDSOE : 1945 DOS: 02/12/2016 [...] Patient will adjust Coumadin to 5 mg Chidi, Wednesday and 7.5 mg all other days with a recheck in two weeks. He verb alizes understanding. Electronically signed by:Tiffani Carrero RN Feb 12 2016 9:02AM WOUND CARE COORDINATOR * [facility], GENERICPROV[facility]RANDO - 02/04/2016 12:00 AM CDTAssociated Order(s): ANTICOAGULATION Anticoagulation Clinic [facility] Name: CRISTIAN BLEDSOE : 1945 DOS: 02/04/2016 [...] by:Tiffani Carrero RN Feb 04 2016 9:45AM WOUND CARE COORDINATOR * [facility] - 01/31/2016 12:00 AM CDTAssociated [...] by:Carlene Hargrove RN Jan 31 2016 2:45PM WOUND CARE COORDINATOR documented in this encounter Plan of [...] Results * ANTICOAGULATION (01/14/2017) Narrative Procedure Note [facility] - 01/14/2017 12:00 AM CDT Anticoagulation [facility] Name: CRISTIAN BLEDSOE : 1945 DOS: 01/14/2017 [...] by:Tiffani Carrero RN Jan 14 2017 11:11AM WOUND CARE COORDINATOR [facility] OTHER Fi nal Result * ANTICOAGULATION (12/23/2016) Narrative Procedure Note [facility] - 12/23/2016 12:00 AM CDT Anticoagulation Clinic [facility] Name: CRISTIAN BLEDSOE : 1945 DOS: 12/23/2016 This is a patient of Dr. Berry. He is here today for an anticoagulationassessment and INR check for a diagnosis of atrial fibrillation. Patientstates that he has been feeling well. He reports that [facility] with [facility] and will begin [...] by:Tiffani Carrero RN Dec 23 2016 11:30AM WOUND CARE COORDINATOR [facility] OTHER Fi nal Result * ANTICOAGULATION (12/02/2016) Narrative [facility] 12/02/2016 12:00 AM CDT [facility] Name: CRISTIAN BLEDSOE : 1945 DOS: 12/02/2016 This is a patient of Dr. Berry. He is here today for an anticoagulationassessment and INR check for a diagnosis of atrial fibrillation. Patientstates that he has been feeling well. He reports that he will met with at the [facility] and has an appointment there [...] by:Tiffani Carrero RN Dec 02 2016 4:10PM WOUND CARE COORDINATOR [facility] OTHER Fi nal Result * ANTICOAGULATION (11/17/2016) Narrative Procedure [facility] 11/17/2016 12:00 AM CDT [facility] Name: CRISTIAN BLEDSOE : 1945 DOS: 11/17/2016 This is a patient of Dr. Berry. He is here today for an anticoagulationassessment and INR check for a diagnosis of atrial fibrillation. Patientstates that he has been feeling well. He reports that he will be meetingwith Dr. Conroy at the [facility] to find out information regardingradiation therapy. [...] by:Tiffani Carrero RN Nov 17 2016 9:36AM WOUND CARE COORDINATOR [facility] OTHER Fi nal Result * ANTICOAGULATION (11/10/2016) Narrative Procedure Note [facility] - 11/10/2016 12:00 AM CDT Anticoagulation [facility] Name: CRISTIAN BLEDSOE : 1945 DOS: 11/10/2016 This is a patient of Dr. Berry. He is here today for an anticoagulationassessment and INR check for a diagnosis of atrial fibrillation. Patientstates that he has been feeling well. He reports that he has beendiagnosis with prostate cancer and will be meeting with Dr. Conroy at [facility] [place] to find out information regarding radiation therapy. Patientdenies any medication changes. INR tested today is elevated at 3.6 withthe recommended range of 2.0 to 3.0. Patient will adjust Coumadin with ahold today (11/10), then take 5 mg daily with an INR recheck in one week.Patient verbalizes understanding. Electronically signed by:Tiffani Carrero RN Nov 10 2016 2:41PM WOUND CARE COORDINATOR [facility] OTHER Fi nal Result * ANTICOAGULATION (10/29/2016) Narrative Procedure Note [facility] - 10/29/2016 12:00 AM CDT Anticoagulation [facility] Name: CRISTIAN BLEDSOE : 1945 DOS: 10/29/2016 [...] by:Tiffani Carrero RN Oct 29 2016 3:44PM WOUND CARE COORDINATOR [facility] OTHER Fi nal Result * ANTICOAGULATION (10/23/2016) Narrative Procedure Note [facility] - 10/23/2016 12:00 AM CDT [facility] Name: CRISTIAN BLEDSOE : 1945 DOS: 10/23/2016 This is a patient of Dr. Berry. He is taking anticoagulation for adiagnosis of atrial fibrillation. He is scheduled for a prostate biopsytoday at the [facility] with Dr. Maloney. Patient had his INR checkedin the [facility] lab prior to his procedure [...] by:Tiffani Carrero RN Oct 26 2016 9:49AM WOUND CARE COORDINATOR [facility] OTHER Fi nal Result * ANTICOAGULATION (10/13/2016) Narrative Procedure Note [facility] - 10/13/2016 12:00 AM CDT Anticoagulation [facility] Name: CRISTIAN BLEDSOE : 1945 DOS: 10/13/2016 [...] The patient will have his INR checked [facility] prior to his biopsy which is scheduled [...] by:Tiffani Carrero RN Oct 13 2016 12:13PM WOUND CARE COORDINATOR AMENDMENTS: 1. Patient states that he was in the [facility] ER on October 08 with arapid heart [...] by:Tiffani Carrero RN Oct 13 2016 12:36PM WOUND CARE COORDINATOR [facility] OTHER Fi nal Result * ANTICOAGULATION (09/15/2016) Narrative Procedure [facility] - 09/15/2016 12:00 AM CST Anticoagulation Clinic [facility] Name: CRISTIAN BLEDSOE : 1945 DOS: 09/15/2016 This is a patient of Dr. Berry. He is here today for an anticoagulationassessment and INR check for a diagnosis of atrial fibrillation. Patientstates that he is feeling well. He denies any medication changes. INRtested today is therapeutic at 2.3 with the recommended goal range of 2.0to 3.0. Patient will continue Coumadin at 7.5 mg Chidi, Ajith and 5 mgall other days with a recheck in one month. He verbalizes understanding. Electronically signed by:Tiffani Carrero RN Sep 15 2016 2:04PM WOUND CARE COORDINATOR [facility] OTHER Fi nal Result * ANTICOAGULATION (08/18/2016) Narrative [facility] - 08/18/2016 12:00 AM CST Anticoagulation [facility] Name: CRISTIAN BLEDSOE : 1945 DOS: 08/18/2016 [...] by:Tiffani Carrero RN Aug 18 2016 2:21PM WOUND CARE COORDINATOR [facility] OTHER Fi nal Result * ANTICOAGULATION (07/28/2016) Narrative [facility] - 07/28/2016 12:00 AM CST Anticoagulation [facility] Name: CRISTIAN BLEDSOE : 1945 DOS: 07/28/2016 This is a patient of Dr. Berry. He is here today for an anticoagulationassessment and INR check for a diagnosis of atrial fibrillation. Patientstates that he is feeling well. He denies any medication changes. INRtested today is 2.2 with the recommended goal range of 2.0 to 3.0. Patientwill continue Coumadin at 7.5 mg Wednesday, Wednesday and 5 mg all other dayswith a recheck in three weeks. He verbalizes understanding. Electronically signed by:Tiffani Carrero RN Jul 28 2016 11:06AM WOUND CARE COORDINATOR [facility] OTHER Fi nal Result * ANTICOAGULATION (07/14/2016) Narrative Procedure Note [facility] - 07/14/2016 12:00 AM CST Anticoagulation [facility] Name: CRISTIAN BLEDSOE : 1945 DOS: 07/14/2016 [...] by:Tiffani Carrero RN Jul 14 2016 11:21AM WOUND CARE COORDINATOR [facility] OTHER Fi nal Result * ANTICOAGULATION (06/30/2016) Narrative Procedure Note [facility] - 06/30/2016 12:00 AM CST Anticoagulation [facility] Name: CRISTIAN BLEDSOE : 1945 DOS: 06/30/2016 [...] by:Tiffani Carrero RN Jun 30 2016 9:24AM WOUND CARE COORDINATOR [facility] OTHER Fi nal Result * ANTICOAGULATION (05/20/2016) Narrative Procedure Note [facility] - 05/20/2016 12:00 AM CST Anticoagulation [facility] Name: CRISTIAN BLEDSOE : 1945 DOS: 05/20/2016 [...] Coumadin at 5 mg Wednesday, Wednesday and 7.5mg all other days with a recheck in one month, sooner for any changes. Heverbalizes understanding. Electronically signed by:Tiffani Carrero RN May 20 2016 3:59PM WOUND CARE COORDINATOR [facility] OTHER Fi nal Result * ANTICOAGULATION (04/15/2016) Narrative Procedure Note [facility] - 04/15/2016 12:00 AM CDT Anticoagulation [facility] Name: CRISTIAN BLEDSOE : 1945 DOS: 04/15/2016 [...] by:Tiffani Carrero RN Apr 15 2016 5:55PM WOUND CARE COORDINATOR [facility] OTHER Fi nal Result * ANTICOAGULATION (03/18/2016) Narrative Procedure Note [facility] - 03/18/2016 12:00 AM CDT Anticoagulation Clinic [facility] Name: CRISTIAN BLEDSOE : 1945 DOS: 03/18/2016 [...] by:Tiffani Carrero RN Mar 18 2016 9:42AM WOUND CARE COORDINATOR [facility] OTHER Fi nal Result * ANTICOAGULATION (03/09/2016) Narrative Procedure Note [facility] - 03/09/2016 12:00 AM CDT ACC [...] Tiffani Carrero RN; Mar 09 2016 9:59AMCST [facility] OTHER Fi nal Result * ANTICOAGULATION (02/27/2016) Narrative Procedure Note [facility] - 02/27/2016 12:00 AM CDT Anticoagulation [facility] Name: CRISTIAN BLEDSOE : 1945 DOS: 02/27/2016 [...] by:Tiffani Carrero RN Feb 27 2016 12:04PM WOUND CARE COORDINATOR [facility] OTHER Fi nal Result * ANTICOAGULATION (02/12/2016) Narrative Procedure Note [facility] - 02/12/2016 12:00 AM CDT Anticoagulation [facility] Name: CRISTIAN BLEDSOE : 1945 DOS: 02/12/2016 This is a patient of Dr. Berry. He is here today for anticoagulationassessment and INR checked for a diagnosis of atrial fibrillation. Patientstates that he has been feeling well. He denies any medication changes.INR tested today is 1.9 with the recommended goal range of 2.0 to 3.0.Patient will adjust Coumadin to 5 mg Wednesday, Ajith and 7.5 mg all otherdays with a recheck in two weeks. He verbalizes understanding. Electronically signed by:Tiffani Carrero RN Feb 12 2016 9:02AM WOUND CARE COORDINATOR [facility] OTHER Fi nal Result * ANTICOAGULATION (02/04/2016) Narrative Procedure Note [facility] - 02/04/2016 12:00 AM CDT Anticoagulation Clinic [facility] Name: CRISTIAN BLEDSOE : 1945 DOS: 02/04/2016 [...] by:Tiffani Carrero RN Feb 04 2016 9:45AM WOUND CARE COORDINATOR Result [facility] OTHER Fi nal Result * ANTICOAGULATION (01/31/2016) Narrative Procedure Note [facility] - 01/31/2016 12:00 AM CDT Name: CRISTIAN BLEDSOE : 1945 DOS: 01/31/2016 He is a patient of Dr. Berry. He is here today for anti-quickly shouldassessment and INR checked for atrial fibrillation. Patient startedCoumadin on Wednesday at 5 mg daily. He states his last dose of Xarelto wasyester. INR is 1.3 with the recommended range of 2.0-2.0. He willtake 7.5 mg today and tomorrow and Wednesday with 5 mg on Wednesday with an INRcheck on Wednesday of next week. Electronically signed by:Carlene Hargrove RN Jan 31 2016 2:45PM WOUND CARE COORDINATOR Genericprovider [facility] OTHER Fi nal Result documented in this encounter Visit Diagnoses Not on filedocumented in this encounter Care Teams Seed Cleaner Relationship Specialty Start Date End Date Casey Berry II, DO PCP - General 11/22/06 08/17/19 Stephani Aleman MD PCP - General Family Medicine 08/18/19 09/16/20 Bianka Loera GAS OR PETROLEUM OPERATOR [address] [place] [address] PCP - General Nurse Practitioner Family 09/17/20 712/31 Desiree Patrick MD [address] [place] [address] PCP - General Electrophysiology 02/23/22 03/09/22 Desiree Patrick MD [address] [place] [address] 08/09/17 Farrah Nicole APRN,CLAIMS PROCESSOR [address] [place] [address] 08/09/17 Bry Echevarria MD [address] [place] [address] JHONATAN SHADI GARCIA [address] 08/09/17 Casey Berry II, DO 08/09/17 Shruti Vergara RN RN Registered Nurse 08/27/20 documented as of this encounter Additional Source Comments PLEASE NOTE: Replies to this message will not be received.[facility]
--- OUTSIDE RECORDS SUMMARY | 2024-07-13 16:23 | XMS_ITS | Encounter Summary ---
Author Organization [employer] Address [address] [place] [address] Care Team Providers Care Director Child Name Role Phone Jamal CARLISLE DO, Robert William Primary Care Provide r Unavailable Desiree Patrick MD Unavailable Farrah Nicole APRN,DIVISION HEAD Unavailable Bry Echevarria MD Unavailable Jamal CARLISLE DO, Robert William Unavailable Unav Stephani Diaz MD Primary Care Provider Shruti Vergara RN Unavailable Unavailable Bianka Loera CNP Primary Care Provider Desiree Patrick MD Primary Care P rovider Encounter Details Date Type Department Care Team (Late st Contact Info) Description 10/21/2016 Historical Conversion [facility] Family Medicine [address] [place] [id number] Social History Tobacco Use Types Packs/Day Years Used Date Smoking Tobacco: Former Cigarettes Q uit: 1979 Alcohol Use Standard Drinks/Week Comments Yes 2 (1 standard drink = 0.6 oz pur e alcohol) 1-2 beers daily Sex and Gender Information Value Date Recorded Sex Assigned at Not on file 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 Gender Identity Not on file Sexual [...] filedocumented in this encounter Care Teams Director Child Relationship Specialty Start Date End Date Casey Berry II, DO PCP - General 11/22/06 08/17/19 Stephani Aleman MD PCP - General Family Medicine 08/18/19 09/16/20 Bianka Loera CNP [address] [place], [place] [address] PCP - General Nurse Practitioner Family 09/17/20 7/2 12/31 Desiree Patrick MD [address] [place] [address] PCP - General Electrophysiology 02/23/22 03/09/22 Desiree Patrick MD [address] [place] [address] 08/09/17 Farrah Nicole APRN,DIVISION HEAD [address] [place] [address] 08/09/17 Bry Echevarria MD [address] [place] [address] [place] [address] 08/09/17 Casey Berry II, DO 08/09/17 Shruti Vergara, RN RN Registered Nurse 08/27/20 documented as of this encounter Additional Source Comments PLEASE NOTE: Replies to this message will not be received.[facility]
--- OUTSIDE RECORDS SUMMARY | 2024-07-13 16:24 | XMS_ITS ---
Author Organization [facility] Address [address] [place] [address] Care Team Providers Care Database Coordinator Name Role Phone Unavailable Unavailable Unavailable Surgery Details Not on file Complications Check Surgery Details section. Procedure Estimated Blood Loss Check Surgery Details section. Procedure Findings Check Surgery Details section. Procedure Specimens Taken Check Surgery Details section.
--- OUTSIDE RECORDS SUMMARY | 2024-07-13 16:24 | XMS_ITS | Encounter Summary ---
Author Organization [facility] Address [address] [place] [address] Care Team Providers Care Soil Science Technical Officer Name Role Phone Jamal CARLISLE DO, Robert William Primary Care Provide r Unavailable Desiree Patrick MD Unavailable Farrah Nicole APRN,BISQUE KILN DRAWER Unavailable [phone] Bry Echevarria MD Unavailable Jamal CARLISLE DO, Robert William Unavailable Unav Stephani Diaz MD Primary Care Provider Shruti Vergara RN Unavailable Unavailable Bianka Loera CNP Primary Care Provider Desiree Patrick MD Primary Care P rovider Encounter Details Date Type Department Care Team (Late st Contact Info) Description 12/01/2006 HIM Eligibility Supervisor Generic Eligibility Supervisor [address] [place] [address] Social History Tobacco Use Types Packs/Day Years Used Date Smoking Tobacco: Never Assessed Sex and Gender Information Value Date Recorded Sex Assigned at Not on file 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 Gender Identity Not on file Sexual Orientation Not on file documented as of this encounter Plan of Treatment Not on file documented as of this encounter Visit Diagnoses Not on filedocumented in this encounter Care Teams Soil Science Technical Officer Relationship Specialty Start Date End Date Casey Berry II, DO PCP - General 11/22/06 08/17/19 Stephani Aleman MD PCP - General Family Medicine 08/18/19 09/16/20 Bianka Loera SUPERVISOR TESTING [address] [place] [address] PCP - General Nurse Practitioner Family 09/17/2001/10 Desiree Patrick MD [address] [place] [address] PCP - General Electrophysiology 02/23/22 03/09/22 Desiree Patrick MD [address] [place] [address] 08/09/17 Farrah Nicole APRN,BISQUE KILN DRAWER [address] [place] [address] 08/09/17 Bry Echevarria MD [facility] [place] [address] 08/09/17 Casey Berry II, DO 08/09/17 Shruti Vergara, RN RN Registered Nurse 08/27/20 documented as of this encounter Additional Source Comments PLEASE NOTE: Replies to this message will not be received.[facility] and [facility]
--- OUTSIDE RECORDS SUMMARY | 2024-07-13 16:24 | XMS_ITS | Encounter Summary ---
Author Organization [facility] Address [address] [place] [address] Care Team Providers Care Chha Name Role Phone Jamal CARLISLE DO, Robert William Primary Care Provide r Unavailable Desiree Patrick MD Unavailable Farrah Nicole APRN,DELIVERY SPECIALIST Unavailable Bry Echevarria MD Unavailable Jamal CARLISLE DO, Robert William Unavailable Unav Stephani Diaz MD Primary Care Provider [phone] Shruti Vergara RN Unavailable Unavailable Bianka Loera CNP Primary Care Provider [phone] Desiree Patrick MD Primary Care P rovider Encounter Details Date Type Department Care Team (Late st Contact Info) Description 11/26/2015 HIM Search Strategist [facility] [address] [address] Rajeev Barlow MD Social History Tobacco Use Types Packs/Day Years Used Date Smoking Tobacco: Former Cigarettes Q uit: 1978 Alcohol Use Standard Drinks/Week Comments Yes 0 (1 standard drink = 0.6 oz pur e alcohol) occasional Sex and Gender Information Value Date Recorded Sex Assigned at Not on file Legal Sex Male 6:02 AM ORDER CHECKER Gender Identity Not on file Sexual Orientation [...] documented in this encounter Procedure Notes * Rajeev Barlow MD - 11/26/2015 12:00 AM CDTAssociated Order(s): MYOCARDIAL PERFUSION PHARMACOLOGIC STRESS PERFORMED BY: [facility] [place] [place] SITE: [place], [place] INTERPRETED BY: [facility] [place], [place] PHARMACOLOGIC MYOCARDIAL PERFUSION SCAN Study supervised by: Casey Berry, II, DO INDICATION: Atrial fibrillation. MEDICATIONS: Lisinopril, [...] TYPE: Rest/stress, single isotope gated SPECT imaging. [id number]: 12.5 mCi (IV) for the rest injection. [id number]: 33.1 mCi (IV) for the stress injection. [...] function. Note: This study was performed by [facility] [employer] [facility]. Only the interpretation was performed at the [facility]. Electronically signed Rajeev Barlow MD, [facility] Sensor Operator , 03:10 P A dsc/Doc#: [id number] cc: documented in this encounter Plan of Treatment Not on file documented as of this encounter Procedures Procedure Name Priority Date/Time Associated Diagnosis Comments MYOCARDIAL PERFUSION PHARMACOLOGIC STRESS 11/26/2015 documented in this encounter Results * MYOCARDIAL PERFUSION PHARMACOLOGIC STRESS (11/26/2015) Anatomical Region Laterality Modality Other 11/26/2015 Narrative Procedure Note Rajeev Barlow MD - 11/26/2015 12:00 AM CDT PERFORMED BY: [facility] [place] SITE: [place] INTERPRETED BY: [place], [place] PHARMACOLOGIC MYOCARDIAL PERFUSION SCAN Study supervised [...] TYPE: Rest/stress, single isotope gated SPECT imaging. [id number]: 12.5 mCi (IV) for the rest injection. [id number]: 33.1 mCi (IV) for the stress injection. [...] function. Note: This study was performed by [facility] [employer]. Only theinterpretation was performed at the [facility]. Electronically signed Rajeev Barlow MD, [facility] Sensor Operator , 03:10 P A dsc/Doc#: [id number] cc: Rajeev Barlow MD CAR NUC MED/STRESS Edited Resu lt - Final documented in this encounter Visit Diagnoses Not on filedocumented in this encounter Care Teams Chha Relationship Specialty Start Date End Date Casey Berry II, DO PCP - General 11/22/06 08/17/19 Stephani Aleman MD PCP - General Family Medicine 08/18/19 09/16/20 Bianka Loera CNP [address] [place] [address] [address] [place] [address] PCP - General Nurse Practitioner Family 09/17/20 712/31 PatrickDesiree raines MD [address] [facility] [place] [address] PCP - General Electrophysiology 02/23/22 03/09/22 Desiree Patrick MD [address] [facility] [place] [address] 08/09/17 Farrah Nicole APRN,DELIVERY SPECIALIST [address] [facility] [place] [address] 08/09/17 Bry Echevarria MD [address] [place] [address] 08/09/17 aCsey Berry II, DO 08/09/17 Shruti Vergara RN RN Registered Nurse 08/27/20 documented as of this encounter Additional Source Comments PLEASE NOTE: Replies to this message will not be received.[facility] and [facility]
--- OUTSIDE RECORDS SUMMARY | 2024-07-13 16:24 | XMS_ITS | Encounter Summary ---
Author Organization [email or web address] Address [address] [place] [address] Care Team Providers Care Quality Assurance Representative Name Role Phone Jamal CARLISLE DO, Robert William Primary Care Provide r Unavailable Desiree Patrick MD Unavailable Farrah Nicole APRN,SENIOR PRIVATE CLIENT ADVISOR Unavailable Bry Echevarria MD Unavailable [phone] Jamal CARLISLE DO, Robert William Unavailable Unav Stephani Diaz MD Primary Care Provider Shruti Vergara RN Unavailable Unavailable Bianka Loera CNP Primary Care Provider Desiree Patrick MD Primary Care P rovider Encounter Details Date Type Department Care Team (Late st Contact Info) Description 09/10/2014 Historical Conversion [facility] [address] [place] [address] Casey Berry II, DO Social History Tobacco Use Types Packs/Day Years Used Date Smoking Tobacco: Never Assessed Sex and Gender Information Value Date Recorded Sex Assigned at Not on file Legal Sex Male 6:02 AM SQUAD SERGEANT Gender Identity Not on file Sexual Orientation Not on file documented as of this encounter Last Filed Vital Signs Vital Sign Reading Time Taken Comments Blood Pressure 130/80 09/10/2014 12:00 AM SQUAD SERGEANT Pulse - - Temperature - - Respiratory Rate - - Oxygen Saturation - - Inhaled Oxygen Concentration - - Weight 93.9 kg (207 lb 0.2 oz) 09/10/2014 12:00 AM SQUAD SERGEANT Height - - Body Mass Index 27.31 08/22/2014 12:00 AM SQUAD SERGEANT documented in this encounter Mental Status documented in this encounter Plan of Treatment Not on file documented as of this encounter Visit Diagnoses Not on filedocumented in this encounter Care Teams Quality Assurance Representative Relationship Specialty Start Date End Date Casey Berry II, DO PCP - General 11/22/06 08/17/19 Stephani Aleman MD PCP - General Family Medicine 08/18/19 09/16/20 Bianka Loera CNP [address] [place] [address] [address] [place] [address] PCP - General Nurse Practitioner Family 09/17/2001/10 Desiree Patrick MD [address] [place] [address] PCP - General Electrophysiology 02/23/22 03/09/22 Desiree Patrick MD [address] [place] [address] 08/09/17 Farrah Nicole APRN,SENIOR PRIVATE CLIENT ADVISOR [address] [place] [address] 08/09/17 Bry Echevarria MD [facility] [place] [id number] 08/09/17 Casey Berry II, DO 08/09/17 Shruti Vergara RN RN Registered Nurse 08/27/20 documented as of this encounter Additional Source Comments PLEASE NOTE: Replies to this message will not be received.[facility]
--- OUTSIDE RECORDS SUMMARY | 2024-07-13 16:24 | XMS_ITS | Encounter Summary ---
Author Organization [employer] Address [address] [place] [address] Care Team Providers Care Supervisor Steno Pool Name Role Phone Jamal CARLISLE DO, Robert William Primary Care Provide r Unavailable Desiree Patrick MD Unavailable Farrah Nicole APRN,FINAL INSPECTOR TRUCK TRAILER Unavailable Bry Echevarria MD Unavailable [phone] Jamal CARLISLE DO, Robert William Unavailable Unav Stephani Diaz MD Primary Care Provider Shruti Vergara RN Unavailable Unavailable Bianka Loera CNP Primary Care Provider Desiree Patrick MD Primary Care P rovider Encounter Details Date Type Department Care Team (Late st Contact Info) Description 08/22/2014 Historical Conversion [facility] Family Medicine [address] [place] [address] Casey Berry II, DO Social History Tobacco Use Types Packs/Day Years Used Date Smoking Tobacco: Never Assessed Sex and Gender Information Value Date Recorded Sex Assigned at Not on file Legal Sex Male 6:02 AM INTERVENTIONAL TECHNOLOGIST Gender Identity Not on file Sexual Orientation Not on file documented as of this encounter Mental Status documented in this encounter H&P Notes * Casey Berry II, DO - 08/22/2014 12:00 AM CST HISTORY AND PHYSICAL CRISTIAN BLEDSOE : 1945 HX: [id number] DOS: 08/22/2014 CHIEF COMPLAINT: Routine physical. HISTORY [...] alcohol. 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 ALLERGIES: PENICILLIN AND SULFA. HEALTH CARE MAINTENANCE: [...] by:Casey Berry D.O. Sep 06 2014 7:40AM INTERVENTIONAL TECHNOLOGIST documented in this encounter Plan of Treatment Not on file documented as of this encounter Visit Diagnoses Not on filedocumented in this encounter Care Teams Supervisor Steno Pool Relationship Specialty Start Date End Date Casey Berry II, DO PCP - General 11/22/06 08/17/19 Stephani Aleman MD PCP - General Family Medicine 08/18/19 09/16/20 Bianka Loera CNP [address] [place] [address] [address] [place] [phone] PCP - General Nurse Practitioner Family 09/17/20 7/2 12/31 Desiree Patrick MD [address] [place] [address] PCP - General Electrophysiology 02/23/22 03/09/22 Desiree Patrick MD [address] [place] [address] 08/09/17 Farrah Nicole APRN,FINAL INSPECTOR TRUCK TRAILER [address] [place] [address] 08/09/17 Bry Echevarria MD [address] [place] [address] [place] [address] 08/09/17 Casey Berry II, DO 08/09/17 Shruti Vergara RN RN Registered Nurse 08/27/20 documented as of this encounter Additional Source Comments PLEASE NOTE: Replies to this message will not be received.[facility] and [facility]
--- OUTSIDE RECORDS SUMMARY | 2024-07-13 16:24 | XMS_ITS | Clinical Summary ---
Author Organization [facility] Address [address] [place] [address] Care Team Providers Care Creative Writing Teacher Name Role Phone Unavailable Primary Care Provider Unavailabl e Source Comments You are receiving this document as you are listed as the primary care provider,follow-up provider, or the patient has been referred to you for consultation.This is in compliance with the Medicare and[facility] Hospital[facility] EHR Incentive Program,which states Providers who transition their patient to another setting of careor provider of care or refers their patient to another provider of care shouldprovide summary care record for each transition of care or referral. [facility] Allergies Active Allergy Reactions Criticality Noted Date [...] to complete this topic [phone] [facility] [place] [id number]
--- OUTSIDE RECORDS SUMMARY | 2024-07-13 16:24 | XMS_ITS | Clinical Summary ---
Author Organization [facility] Address [address] [place] [address] Care Team Providers Care Intranet Specialist Name Role Phone Unavailable Primary Care Provider Unavailabl e Source Comments Patient records contain information from all sites at [facility]. For routine questions regarding patient records, call [phone] during business hours, M-F 8:00 AM - 5:00 PM Central Time. Record requests for emergency care only can be directed to [phone] at any time.[facility] Allergies Active Allergy Reactions Criticality Noted [...] DUCODYL, BISACODYL, ORAL Take by mouth. Active calcitonin, salmon, (Miacalcin) 200 unit/actuation nasal spray Administer 200 Units into one nostril daily. 4 Active fexofenadine (Yris) 30 mg/5 mL suspension Take 30 mg by mouth daily. Active acetaminophen (TylenoL) 500 mg tablet Take 500 mg by mouth every 6 (six) hours as needed for pain. Active carbidopa-levod opa (Sinemet) 25-100 mg per tablet Take 2.5 tablets by mouth 3 (three) times a day. 675 tablet 3 4 06/07/20 25 Active Active Problems Problem Noted Date Diagnosed [...] 2015 Overview (05/17/2023): 4.2 x 4.3 on [facility] [place] Encounters Date Type Department Care Team Description 06/07/2024 1:00 PM NATIONAL PARK TOUR GUIDE Office Visit Department of Neurology in [place], [place] [address] [address] Vic Mae M.D. Parkinsonism Unspecified (HCC) [...] Comments Blood Pressure 97/68 06/07/2024 12:41 PM NATIONAL PARK TOUR GUIDE Pulse 72 06/07/2024 12:41 PM NATIONAL PARK TOUR GUIDE Temperature 36.8 C (98.2 F) 05/17/2023 1:44 PM NATIONAL PARK TOUR GUIDE Respiratory Rate - - Oxygen Saturation - - Inhaled Oxygen Concentration - - Weight 78.9 kg (174 lb) 06/07/2024 12:41 PM NATIONAL PARK TOUR GUIDE Height 184 cm (6' 0.44) 04/15/2023 2:57 [...] or Tdap) 09/14/2033 09/15/2023, 08/21/2013 Pneumococcal vaccine (50+ years) Completed 08/28/2016, 08/28/2015, 01/28/2010 RSV vaccine - (32-36 weeks) or 60+ years Completed 04/17/2023 Zoster Vaccines Completed 11/16/2023, 03/12/2023, 01/28/2010 COVID-19 Vaccine Completed 04/17/2024, 01/2023, 05/07/2022, Additional history exists Influenza Vaccine Completed 04/17/2024, , 04/13/2022, Additional history exists IPV Vaccines Aged Out No longer eligi ble based on patient's age to complete this topic [place] [id number] [facility]
--- OUTSIDE RECORDS SUMMARY | 2024-07-13 16:24 | XMS_ITS | Encounter Summary ---
Author Organization [employer] Address [address] [place] [address] Care Team Providers Care Preform Machine Operator Name Role Phone Jamal CARLISLE DO, Robert William Primary Care Provide r Unavailable Desiree Patrick MD Unavailable Farrah Nicole APRN,BUTTON PUNCHER Unavailable Bry Echevarria MD Unavailable [phone] Jamal CARLISLE DO, Robert William Unavailable Unav Stephani Diaz MD Primary Care Provider Shruti Vergara RN Unavailable Unavailable Bianka Loera CNP Primary Care Provider Desiree Patrick MD Primary Care P rovider Encounter Details Date Type Department Care Team (Late st Contact Info) Description 08/28/2015 Historical Conversion [facility] [address] [place] [address] Casey Berry II, DO Social History Tobacco Use Types Packs/Day Years Used Date Smoking Tobacco: Never Assessed Sex and Gender Information Value Date Recorded Sex Assigned at Not on file Legal Sex Male 6:02 AM PHYSICIAN/ALLERGY/IMMUNOLOGY Gender Identity Not on file Sexual Orientation Not on file documented as of this encounter Last Filed Vital Signs Vital Sign Reading Time Taken Comments Blood Pressure 134/90 08/28/2015 12:00 AM PHYSICIAN/ALLERGY/IMMUNOLOGY Pulse - - Temperature - - Respiratory Rate - - Oxygen Saturation - - Inhaled Oxygen Concentration - - Weight 90.2 kg (198 lb 13.7 oz) 016 12:00 AM PHYSICIAN/ALLERGY/IMMUNOLOGY Height 186 cm (6' 1.23) 08/28/2015 12: 00 AM PHYSICIAN/ALLERGY/IMMUNOLOGY Body Mass Index 26.07 08/28/2015 12:00 AM PHYSICIAN/ALLERGY/IMMUNOLOGY documented in this encounter Mental Status documented in this encounter Progress Notes * Casey Berry MAYLIN, DO - 06/24/2016 12:00 AM CST Assessment [...] healthy by no longer smoking.; Status:Complete; Done: 97Wsf0937 Reason For Visit Go over CT results. [...] 1 TABLET BY MOUTH ONCE DAILY; Therapy: 16Rtg2393 to (Evaluate:03Qfc4745) Requested for: 39Egs3468; Last Rx:84Mip1285 Ordered 2. Metoclopramide HCl - 5 MG Oral Tablet; TAKE 1 TABLET BY MOUTH THREE TIMES DAILY WITH MEALS; Therapy: 10Sep2014 to (Evaluate:81Jln2322) Requested for: 98Mkz6157; Last Rx:24Eaj7191 Ordered 3. Metoprolol Tartrate 25 MG Oral Tablet; 1/2 to 1 prn a fib Requested for: 43Nyt6865; Last Rx:58Ybd7751 Ordered 4. Tylenol Extra Strength 500 MG Oral Tablet; Therapy: (Recorded:78Zxt9257) to Recorded 5. Warfarin Sodium 5 MG Oral Tablet; Take as directed by ACC; Therapy: 58Ulu0123 to (Evaluate:15May2017) Requested for: 20May2016 Recorded Allergies 1. Penicillins 2. Sulfa Drugs Vitals Recorded: 09Keo3306 10:00AM Systolic 115, RUE, Sitting Diastolic 76, RUE, Sitting Heart Rate 65 Respiration 16 Temperature 97.6 F, Forehead Weight 91.5 kg BMI Calculated 26.45 BSA Calculated 2.16 2+ Falls or 1 Fall with injury in last year? No O2 Saturation 96 Signatures Casey Berry II, KyawOWilliam/pj-29 Electronically signed by : Casey Berry DO; Jul 09 2016 1:56PM PHYSICIAN/ALLERGY/IMMUNOLOGY * Casey Berry II, DO - 03/10/2016 [...] 1 TABLET BY MOUTH ONCE DAILY; Therapy: 85Lor7029 to (Evaluate:16Nmc9436) Requested for: 52Mwm7269; Last Rx:89Eie0243 Ordered 3. Metoclopramide HCl - 5 MG Oral Tablet; TAKE 1 TABLET BY MOUTH THREE TIMES DAILY WITH MEALS; Therapy: 10Sep2014 to (Evaluate:19Zup4647) Requested for: 91Rmi9366; Last Rx:30Dbu9323 Ordered 4. Tylenol Extra Strength 500 MG Oral Tablet; Therapy: (Recorded:93Rqo0403) to Recorded 5. Warfarin Sodium 5 MG Oral Tablet; Take as directed by ACC; Therapy: 35Oqc8834 to (Evaluate:91Iar1573) Requested for: 19Feb2016; Last Rx:19Feb2016 Ordered Allergies [...] Vital Signs [Data Includes: Current Encounter] Recorded: 95Iew9724 10:06AM Blood Pressure 124 / 71 Heart [...] blockers without getting severe bradycardia. Signatures Casey Beryr II, D.OWillima/pj-14 Electronically signed by : Casey Berry DO; Apr 02 2016 8:50AM PHYSICIAN/ALLERGY/IMMUNOLOGY * Casey Berry II, DO - 01/28/2016 [...] use sparingly qid; Therapy: 18Nov2015 to (Last Rx:87Itu3289) Requested for: 93Gak8637 Ordered 2. Lisinopril 10 MG Oral Tablet; TAKE 1 TABLET BY MOUTH ONCE DAILY; Therapy: 78Xim2364 to (Evaluate:62Tjf4836) Requested for: 03Wlo2019; Last Rx:96Iiu8738 Ordered 3. Metoclopramide HCl - 5 MG Oral Tablet; TAKE 1 TABLET BY MOUTH THREE TIMES DAILY WITH MEALS; Therapy: 10Sep2014 to (Evaluate:61Sxt6386) Requested for: 43Vxj3797; Last Rx:44Hha3173 Ordered 4. Tylenol Extra Strength 500 MG Oral Tablet; Therapy: (Recorded:10Ifc7484) to Recorded 5. Xarelto 15 MG Oral Tablet; TAKE 1 TABLET DAILY Requested for: 08Jan2016; Last Rx:08Jan2016 Ordered Allergies 1. Penicillins 2. Sulfa Drugs Social History 1. Former smoker: 0 - 10 pack years (V15.82) (Z87.891) Vitals Vital Signs [Data Includes: Current Encounter] Recorded: 94Qzk7778 10:31AM Blood Pressure 139 / 83 Heart [...] Casey Berry DO; Feb 11 2016 7:47AM PHYSICIAN/ALLERGY/IMMUNOLOGY * Casey Berry II, DO - 12/11/2015 12:00 AM CDT Chief Complaint/Reason for Visit f/up ct History of Present Illness This is a 70-year-old male who recently underwent a stress test. The stress test showed no major abnormality, however, it was suggested of an aneurysm. 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 Howard that the CT scan would be a [...] 1 TABLET BY MOUTH ONCE DAILY; Therapy: 08Gbi2782 to (Evaluate:78Aqi8899) Requested for: 69Fji8821; Last Rx:33Ffn6262 Ordered 3. Metoclopramide HCl - 5 MG Oral Tablet; TAKE 1 TABLET BY MOUTH THREE TIMES DAILY WITH MEALS; Therapy: 10Sep2014 to (Evaluate:69Ogw1914) Requested for: 61Rmf1647; Last Rx:71Qve8837 Ordered 4. Tylenol Extra Strength 500 MG [...] of an aneurysm. Signatures Casey Berry II, Daron/pj-16 Electronically signed by : Casey Berry DO; Dec 30 2015 8:19AM PHYSICIAN/ALLERGY/IMMUNOLOGY * Casey Berry II, DO - 11/18/2015 12:00 AM CDT Chief Complaint/Reason for Visit ER follow up History of Present Illness This is a 69-year-old male who has a long history of paroxysmal tachycardia. He recently had an episode of paroxysmal tachycardia. He went in to the ER in [place] and found that he had a flutter [...] INHALE ONE SPRAY TWICE DAILY PRN; Therapy: 12Gti4939 to Requested for: 03Jan2014 Recorded 2. Lisinopril 10 MG Oral Tablet; TAKE 1 TABLET BY MOUTH ONCE DAILY; Therapy: 93Put8851 to (Evaluate:49Xlc1183) Requested for: 49Iqi2555; Last Rx:07Chw0198 Ordered 3. Metoclopramide HCl - 5 MG Oral Tablet; TAKE 1 TABLET BY MOUTH THRE E TIMES DAILY WITH MEALS; Therapy: 80Uxh3655 to (Evaluate:77Ezy8764) Requested for: 28Nov2014; Last Rx:28Nov2014 Ordered 4. Metoprolol Tartrate 25 MG Oral [...] Casey Berry DO; Nov 26 2015 8:06AM PHYSICIAN/ALLERGY/IMMUNOLOGY documented in this encounter H&P Notes * [...] INHALE ONE SPRAY TWICE DAILY PRN; Therapy: 46Nvl4570 to Requested for: 03Jan2014 Recorded 3. Lisinopril 10 MG Oral Tablet; TAKE 1 TABLET BY MOUTH ONCE DAILY; Therapy: 53Fke2191 to (Evaluate:82Fbo5063) Requested for: 81Luf6080; Last Rx:88Awi2542 Ordered 4. Metoclopramide HCl - 5 MG Oral Tablet; TAKE 1 TABLET BY MOUTH THRE E TIMES DAILY WITH MEALS; Therapy: 10Sep2014 to (Evaluate:61Dbq7664) Requested for: 58Dhx7768; Last Rx:78Omr9618 Ordered 5. Vitamin D3 1000 UNIT Oral [...] healthy by no longer smoking.; Status:Complete; Done: 08Hal2743 1.Prevnar shot. 2.CBC, vitamin D, PSA, comp, and lipid. 3.Did discuss with patient about his foot. Signatures Casey Berry II, D.OWilliam/jaj-08 Electronically signed by : Casey Berry DO; Sep 19 2015 8:13AM PHYSICIAN/ALLERGY/IMMUNOLOGY documented in this encounter Procedure Notes * Casey Berry II, DO - 11/26/2015 12:00 AM CDTAssociated Order(s): NUCLEAR MEDICINE NUCLEAR MEDICINE CRISTIAN BLEDSOE : 1945 HX: [id number] DOS: 11/26/2015 Lexiscan portion of Lexiscan Cardiolite. [...] by:Casey Berry DO Dec 03 2015 7:45AM PHYSICIAN/ALLERGY/IMMUNOLOGY documented in this encounter Miscellaneous Notes * [...] you have any questions. Casey Berry DO [facility] Electronically signed by:DEYANIRA FRANCOIS Sep 09 2015 11:25AM PHYSICIAN/ALLERGY/IMMUNOLOGY documented in this encounter Plan of Treatment Not on file documented as of this encounter Procedures Procedure Name Priority Date/Time Associated Diagnosis Comments NUCLEAR MEDICINE 11/26/2015 documented in this encounter Results * NUCLEAR MEDICINE (11/26/2015) Anatomical Region Laterality Modality Other Narrative Procedure Note Casey Berry II, DO - 11/26/2015 12:00 AM CDT NUCLEAR MEDICINE CRISTIAN BLEDSOE : 1945 HX: [id number] DOS: 11/26/2015 Lexiscan portion of Lexiscan Cardiolite. BASELINE EKG: Shows no abnormality of note. PROTOCOL: Patient was given Lexiscan and Cardiolite. He had no majorcomplaints. EKG CHANGES NOTED DURING TEST: EKG showed no changes. IMPRESSION: 1. Normal Lexiscan portion of Lexiscan Cardiolite. RECOMMENDATIONS: We will await radiologic portion of test. Casey Berry II, D.OWilliam/jaj-23 Electronically signed by:Casey Berry DO Dec 03 2015 7:45AM PHYSICIAN/ALLERGY/IMMUNOLOGY Casey Berry II, DO RAD NUCLEAR MEDICINE Final Result documented in this encounter Visit Diagnoses Not on filedocumented in this encounter Care Teams Preform Machine Operator Relationship Specialty Start Date End Date Casey Berry II, DO PCP - General 11/22/06 2 Stephani Aleman MD PCP - General Family Medicine 08/18/19 09/16/20 Bianka Loera ONCOLOGY PATIENT NAVIGATOR [address] [place] [address] [address] [place] [phone] PCP - General Nurse Practitioner Family 09/17/20 712/31 [place] [address] [place] [address] [place] [address] PCP - General Electrophysiology 02/23/22 03/09/22 Desiree Patrick MD [address] [place] [address] 08/09/17 Farrah Nicole APRN,BUTTON PUNCHER [address] [place] [address] 08/09/17 Bry Echevarria MD [address] [place] [address] [place] [address] 08/09/17 Casey Berry II, DO 08/09/17 Shruti Vergara RN RN Registered Nurse 08/27/20 documented as of this encounter Additional Source Comments PLEASE NOTE: Replies to this message will not be received.[facility] and [facility]
--- OUTSIDE RECORDS SUMMARY | 2024-07-13 16:24 | XMS_ITS | Encounter Summary ---
Author Organization [employer] Address [address] [place] [address] Care Team Providers Care Residential Remodeling Subcontractor Name Role Phone Jamal CARLISLE DO, Robert William Primary Care Provide r Unavailable Desiree Patrick MD Unavailable Farrah Nicole APRN,CARBURETOR MECHANIC Unavailable Bry Echevarria MD Unavailable [phone] Jamal CARLISLE DO, Robert William Unavailable Unav Stephani Diaz MD Primary Care Provider Shruti Vergara RN Unavailable Unavailable Bianka Loera CNP Primary Care Provider [phone] Desiree Patrick MD Primary Care P rovider Encounter Details Date Type Department Care Team (Late st Contact Info) Description 08/22/2014 Historical Conversion [facility] [address] [place] [address] Casey Berry II, DO Social History Tobacco Use Types Packs/Day Years Used Date Smoking Tobacco: Never Assessed Sex and Gender Information Value Date Recorded Sex Assigned at Not on file Legal Sex Male 6:02 AM DESIGN ENGINEER AGRICULTURAL EQUIPMENT Gender Identity Not on file Sexual Orientation Not on file documented as of this encounter Last Filed Vital Signs Vital Sign Reading Time Taken Comments Blood Pressure 145/88 08/22/2014 12:00 AM DESIGN ENGINEER AGRICULTURAL EQUIPMENT Pulse - - Temperature - - Respiratory Rate - - Oxygen Saturation - - Inhaled Oxygen Concentration - - Weight 90.7 kg (200 lb) 08/22/2014 12:00 AM DESIGN ENGINEER AGRICULTURAL EQUIPMENT Height 185.4 cm (6' 1) 08/22/2014 12:00 AM DESIGN ENGINEER AGRICULTURAL EQUIPMENT Body Mass Index 26.39 08/22/2014 12:00 AM DESIGN ENGINEER AGRICULTURAL EQUIPMENT documented in this encounter Mental Status documented in this encounter Plan of Treatment Not on file documented as of this encounter Visit Diagnoses Not on filedocumented in this encounter Care Teams Residential Remodeling Subcontractor Relationship Specialty Start Date End Date Casey Berry II, DO PCP - General 11/22/06 08/17/19 Stephani Aleman MD PCP - General Family Medicine 08/18/19 09/16/20 Bianka Loera CNP [address] [place] [phone] PCP - General Nurse Practitioner Family 09/17/2001/10 Desiree Patrick MD [address] [place] [address] PCP - General Electrophysiology 02/23/22 03/09/22 Desiree Patrick MD [address] [place] [address] 08/09/17 Farrah Nicole APRN,CARBURETOR MECHANIC [address] [place] [address] 08/09/17 Bry E[facility]varria MD [address] [facility] [place] [address] 08/09/17 Casey Berry II, DO 08/09/17 Shruti Vergara RN RN Registered Nurse 08/27/20 documented as of this encounter Additional Source Comments PLEASE NOTE: Replies to this message will not be received.[facility] and [facility]
--- OUTSIDE RECORDS SUMMARY | 2024-07-13 16:24 | XMS_ITS | Encounter Summary ---
Author Organization [facility] Address [address] [place] [address] Care Team Providers Care Digital Analytics Manager Name Role Phone Jamal CARLISLE DO, Robert William Primary Care Provide r Unavailable Desiree Patrick MD Unavailable Farrah Nicole APRN,CUT OUT MARKER Unavailable Bry Echevarria MD Unavailable Jamal CARLISLE DO, Robert William Unavailable Unav Stephani Diaz MD Primary Care Provider Shruti Vergara RN Unavailable Unavailable Bianka Loera CNP Primary Care Provider Desiree Patrick MD Primary Care P rovider Encounter Details Date Type Department Care Team (Late st Contact Info) Description 11/19/2015 HIM Strapper Operator [facility] [place] [address] [place] [address] Dionisio Meneses MD [address] [place] [address] Social History Tobacco Use Types Packs/Day Years Used Date Smoking Tobacco: Former Cigarettes Q uit: 1978 Alcohol Use Standard Drinks/Week Comments Yes 0 (1 standard drink = 0.6 oz pur e alcohol) occasional Sex and Gender Information Value Date Recorded Sex Assigned at Not on file Legal Sex Male 6:02 AM STEEL SAMPLER Gender Identity Not on file Sexual Orientation Not on file documented as of this encounter Functional Status * Are you deaf or do you have serious difficulty hearing? Answer Date of Assessment Author No 11/15/2015 11:12 PM Chitra Chapman RN * Are you blind or do [...] Chapman RN * Do you have difficulty doing [...] documented in this encounter Procedure Notes * Dionisio eMneses MD - 11/19/2015 12:00 AM CDTAssociated Order(s): ECHOCARDIOGRAM TRANSTHORACIC ADULT WITH OR WITHOUT CONTRAST PERFORMED BY: [facility] [place] [place] SITE: [facility] [place] INTERPRETED BY: [facility] [place], [place] TRANSTHORACIC ECHOCARDIOGRAM REPORT REFERRING DIAGNOSIS: Atrial [...] comparison. Note: This study was performed by [facility] [facility] [place]. Only the interpretation wasperformed at the [facility] [place]. Electronically signed Dionisio Meneses MD, [facility] Documentation Coordinator , 04:04 P A vd/Doc#: [id number] cc: Adult Normal Value Adult Patient Values [...] kg Blood pressure: 126/75 Previous study: -- Farmworker Dairy: Lisa documented in this encounter Plan of [...] - 11/19/2015 12:00 AM CDT PERFORMED BY: [facility] [place], [place] SITE: [facility] [place] INTERPRETED BY: [facility] [place] TRANSTHORACIC ECHOCARDIOGRAM REPORT REFERRING DIAGNOSIS: Atrial [...] comparison. Note: This study was performed by [facility].Only the interpretation was performed at the [facility]. Electronically signed Dionisio Meneses MD, [facility] Documentation Coordinator , 04:04 P A vd/Doc#: [id number] cc: Adult Normal Value Adult Patient Values [...] kg Blood pressure: 126/75 Previous study: -- Farmworker Dairy: Lisa us Dionisio Meneses MD [facility] [employer] Edited Result - Final documented in this encounter Visit Diagnoses Not on filedocumented in this encounter Care Teams Digital Analytics Manager Relationship Specialty Start Date End Date Casey Berry II, DO PCP - General 11/22/06 08/17/19 Stephani Aleman MD PCP - General Family Medicine 08/18/19 09/16/20 Bianka Loera KNITTING MACHINE MECHANIC [address] [place] [address] PCP - General Nurse Practitioner Family 09/17/20 7/2 12/31 Desiree Patrick MD [address] [place] [address] [place] [address] PCP - General Electrophysiology 02/23/22 03/09/22 Desiree Patrick MD [address] [place] [address] 08/09/17 Farrah Nicole APRN,CUT OUT MARKER [address] [place] [address] 08/09/17 Bry Echevarria MD [facility][note 3] [place] [address] 08/09/17 Casey Berry II, DO 08/09/17 Shruti Vergara RN RN Registered Nurse 08/27/20 documented as of this encounter Additional Source Comments PLEASE NOTE: Replies to this message will not be received.[facility] and [facility]
--- OUTSIDE RECORDS SUMMARY | 2024-07-13 16:24 | XMS_ITS | Encounter Summary ---
Author Organization [facility] Address [address] [place] [address] Care Team Providers Care Director Of Retail Name Role Phone Jamal CARLISLE DO, Robert William Primary Care Provide r Unavailable Desiree Patrick MD Unavailable Farrah Nicole APRN,PLANT UTILITIES ENGINEER Unavailable Bry Echevarria MD Unavailable Jamal CARLISLE DO, Robert William Unavailable Unav Stephani Diaz MD Primary Care Provider [phone] Shruti Vergara RN Unavailable Unavailable Bianka Loera CNP Primary Care Provider [phone] Desiree Patrick MD Primary Care P rovider Encounter Details Date Type Department Care Team (Late st Contact Info) Description [address] [address] Social History Tobacco Use Types Packs/Day Years Used Date Smoking Tobacco: Never Assessed Sex and Gender Information Value Date Recorded Sex Assigned at Not on file Legal Sex Male 6:02 AM NUMERICAL CONTROL PROGRAMMER Gender Identity Not on file Sexual Orientation [...] ELLIOT, SCAN - 2006 2:13 PM CDT us Scan Elliot PROCEDURE NOTE Final Result documented in this encounter Visit Diagnoses Not on filedocumented in this encounter Care Teams Director Of Retail Relationship Specialty Start Date End Date Casey Berry II, DO PCP - General 11/22/06 08/17/19 Stephani Aleman MD PCP - General Family Medicine 08/18/19 09/16/20 Bianka Loera, SPORTS PHYSICIAN [address] [place] [phone] PCP - General Nurse Practitioner Family 09/17/2001/10 Desiree Patrick MD [address] [place] [address] PCP - General Electrophysiology 02/23/22 03/09/22 Desiree Patrick MD [address] [place] [address] 08/09/17 Farrah Nicole APRN,PLANT UTILITIES ENGINEER [address] [place] [address] 08/09/17 Bry Echevarria MD [address] [place] [place] [address] 08/09/17 Casey Berry II, DO 08/09/17 Shruti Vergara, RN RN Registered Nurse 08/27/20 documented as of this encounter Additional Source Comments PLEASE NOTE: Replies to this message will not be received.[facility] and [facility]
--- OUTSIDE RECORDS SUMMARY | 2024-07-13 16:24 | XMS_ITS | Encounter Summary ---
Author Organization [employer] Address [address] [place] [address] Care Team Providers Care Supervisor Cooler Service Name Role Phone Jamal CARLISLE DO, Robert William Primary Care Provide r Unavailable Desiree Patrick MD Unavailable Farrah Nicole APRN,CHRONIC CARE NURSE Unavailable Bry Echevarria MD Unavailable Jamal CARLISLE DO, Robert William Unavailable Unav Stephani Diaz MD Primary Care Provider Shruti Vergara RN Unavailable Unavailable Bianka Loera CNP Primary Care Provider Desiree Patrick MD Primary Care P rovider Encounter Details Date Type Department Care Team (Late st Contact Info) Description 08/22/2014 Historical Conversion [facility] Family Medicine [address] [place] [address] Casey Berry II, DO Social History Tobacco Use Types Packs/Day Years Used Date Smoking Tobacco: Never Assessed Sex and Gender Information Value Date Recorded Sex Assigned at Not on file Legal Sex Male 6:02 AM COUTIERIER Gender Identity Not on file Sexual Orientation Not on file documented as of this encounter Mental Status documented in this encounter Progress Notes * Casey Berry II, DO - 01/29/2015 12:00 AM CDT CRISTIAN BLEDSOE : 1945 HX: [id number] DOS: 01/29/2015 CHIEF COMPLAINT: Follow up after [...] by:Casey Berry D.O. Feb 11 2015 7:55AM COUTIERIER * Casey Berry II, DO - 09/10/2014 12:00 AM CST CRISTIAN BLEDSOE : 1945 HX: [id number] DOS: 09/10/2014 CHIEF COMPLAINT: Follow up of [...] by:Casey Berry D.O. Sep 26 2014 3:33PM COUTIERIER documented in this encounter Miscellaneous Notes * [...] you have any questions. Casey Berry DO [facility] Electronically signed by:DEYANIRA FRANCOIS Dec 06 2014 9:03AM COUTIERIER documented in this encounter Plan of Treatment Not on file documented as of this encounter Visit Diagnoses Not on filedocumented in this encounter Care Teams Supervisor Cooler Service Relationship Specialty Start Date End Date Casey Berry II, DO PCP - General 11/22/06 2 Stephani Aleman MD PCP - General Family Medicine 08/18/19 09/16/20 Bianka Loera, WOOD BARREL RECONDITIONER [address] [place] [phone] PCP - General Nurse Practitioner Family 09/17/20 712/31 Desiree Patrick MD [address] [facility] [address] PCP - General Electrophysiology 02/23/22 03/09/22 Desiree Patrick MD [address] [facility] [place] [address] 08/09/17 Farrah Nicole APRN,CHRONIC CARE NURSE [address] [place] [address] 08/09/17 Bry Echevarria MD [address] [place] [phone] 08/09/17 Casey Berry II, DO 08/09/17 Shruti Vergara, RN RN Registered Nurse 08/27/20 documented as of this encounter Additional Source Comments PLEASE NOTE: Replies to this message will not be received.[facility] and [facility]
--- OUTSIDE RECORDS SUMMARY | 2024-07-13 16:24 | XMS_ITS | Encounter Summary ---
Author Organization [facility] Address [address] [place] [address] Care Team Providers Care County Library Director Name Role Phone Jamal CARLISLE DO, Robert William Primary Care Provide r Unavailable Desiree Patrick MD Unavailable Farrah Nicole APRN,ENGINEER THIRD ASSISTANT Unavailable Bry Echevarria MD Unavailable Jamal CARLISLE DO, Robert William Unavailable Unav Stephani Diaz MD Primary Care Provider Shruti Vergara RN Unavailable Unavailable Bianka Loera CNP Primary Care Provider Desiree Patrick MD Primary Care P rovider Encounter Details Date Type Department Care Team (Late st Contact Info) Description 01/03/2014 Historical Conversion [facility] Family Medicine [address] [place] [id number] Errol Berry II, DO Social History Tobacco Use Types Packs/Day Years Used Date Smoking Tobacco: Never Assessed Sex and Gender Information Value Date Recorded Sex Assigned at Not on file Legal Sex Male 6:02 AM COOK HOUSE SUPERVISOR Gender Identity Not on file Sexual [...] Index - - documented in this encounter Mental Status documented in this encounter Progress Notes * Errol Berry II, DO - 01/03/2014 12:00 AM CDT CRISTIAN BLEDSOE : 1945 HX: [id number] DOS: 01/03/2014 CHIEF COMPLAINT: Back pain. HISTORY [...] by:ERROL BERRY D.O. Jan 17 2014 7:34AM COOK HOUSE SUPERVISOR documented in this encounter Plan of Treatment Not on file documented as of this encounter Visit Diagnoses Not on filedocumented in this encounter Care Teams County Library Director Relationship Specialty Start Date End Date Errol Berry II, DO PCP - General 11/22/06 08/17/19 Stephani Aleman MD PCP - General Family Medicine 08/18/19 09/16/20 Bianka Loera GAS STOVE SERVICER HELPER [address] [place] [address] PCP - General Nurse Practitioner Family 09/17/20 712/31 Desiree Patrick MD [address] [place] [address] PCP - General Electrophysiology 02/23/22 03/09/22 Desiree Patrick MD [address] [place] [address] 08/09/17 Farrah Nicole APRN,[facility] [address] [place] [address] 08/09/17 Bry Echevarria MD [address] [place] [address] [place] [phone] 08/09/17 Errol Berry II, DO 08/09/17 Shruti Vergara RN RN Registered Nurse 08/27/20 documented as of this encounter Additional Source Comments PLEASE NOTE: Replies to this message will not be received.[facility] and [facility]
--- OUTSIDE RECORDS SUMMARY | 2024-07-13 16:24 | XMS_ITS | Referral Summary ---
Author Organization [facility] Address [address] [place] [address] Care Team Providers Care Contract Programmer Name Role Phone Unavailable Primary Care Provider Unavailabl e Source Comments Patient records contain information from all sites at [facility]. For routine questions regarding patient records, call [phone] during business hours, M-F 8:00 AM - 5:00 PM Central Time. Record requests for emergency care only can be directed to [phone] at any time.[facility] Encounters Date Type Department Care Team Description 06/07/2024 1:00 PM STRUCTURAL ANALYST Office Visit Department of Neurology in [place], [place] [address], [place] [address] Vic Mae M.D. Parkinsonism Unspecified [...] 2015 Overview (05/17/2023): 4.2 x 4.[address] [facility] Social History Tobacco Use [...] Comments Blood Pressure 97/68 06/07/2024 12:41 PM STRUCTURAL ANALYST Pulse 72 06/07/2024 12:41 PM STRUCTURAL ANALYST Temperature 36.8 C (98.2 F) 05/17/2023 1:44 PM STRUCTURAL ANALYST Respiratory Rate - - Oxygen Saturation - - Inhaled Oxygen Concentration - - Weight 78.9 kg (174 lb) 06/07/2024 12:41 PM STRUCTURAL ANALYST Height 184 cm (6' 0.44) 04/15/2023 2:57 PM CDT Body Mass Index 23.31 04/15/2023 2:57 PM CDT Plan of Treatment Not on file Insurance [facility]
--- OUTSIDE RECORDS SUMMARY | 2024-07-13 16:24 | XMS_ITS | Encounter Summary ---
Author Organization [facility] Address [address] [place] [address] Care Team Providers Care Manager Regulatory Name Role Phone Jamal CARLISLE DO, Robert William Primary Care Provide r Unavailable Desiree Patrick MD Unavailable Farrah Nicole APRN,SOIL CONSERVATIONIST Unavailable Bry Echevarria MD Unavailable Jamal CARLISLE DO, Robert William Unavailable Unav Stephani Diaz MD Primary Care Provider Shruti Vergara RN Unavailable Unavailable Bianka Loera CNP Primary Care Provider [phone] Desiree Patrick MD Primary Care P rovider Encounter Details Date Type Department Care Team (Late st Contact Info) Description 11/07/2015 Historical Conversion [facility] Family Medicine [address] [place] [id number] Moon Maloney MD Social History Tobacco Use Types Packs/Day Years Used Date Smoking Tobacco: Never Assessed Sex and Gender Information Value Date Recorded Sex Assigned at Not on file Legal Sex Male 6:02 AM FIELD CLERK Gender Identity Not on file Sexual [...] Body Mass Index 26.65 08/28/2015 12:00 AM FIELD CLERK documented in this encounter Mental Status documented in this encounter Progress Notes * Moon Maloney MD - 11/06/2016 12:00 AM CDT [facility]Y [facility] CRISTIAN BLEDSOE : 1945 HX: [id number] DOS: 11/06/2016 SUBJECTIVE: Cristian and his are here to discuss the results of the recent prostate biopsy. We ended up taking Anurag off his Coumadin and doing a prostate biopsy because of a positive JACKSPOOLER-3 test and an elevated PSA, so he is here with his to discuss that. PHYSICAL EXAMINATION: Vital Signs: Vital signs reviewed in Allscripts. Please see vitals tab for details. His PSA was 5.4. His AUA symptom score is 1. His prostate size is 29.34 grams. The prostate biopsy came back with a Weems 6 adenocarcinoma less than 2% one of two cores on the left base. Adenocarcinoma Curt 7 less than 5% one of two cores on the left mid, and benign prostatic hypertrophy in the left apex. On the right base there was some ARPIT. The right mid showed prostate adenocarcinoma, Weems 3+4 involving 20% two of two cores were positive. At the right apex, a Weems 3+4 or 7, involving 5% one of [...] prostatectomy. Moon Maloney M.D./la-1 cc: Jose Winslow M.D./[facility] cc: Casey Berry II, D.O./[facility] Electronically signed by:Moon Maloney M.D. Nov 09 2016 1:49PM FIELD CLERK * Moon Maloney MD - 10/23/2016 12:00 AM CDT UROLOGY [facility] CRISTIAN BLEDSOE : 1945 HX: [id number] DOS: 10/23/2016 SUBJECTIVE: Cristian is here for a prostate biopsy. I saw Cristian in August. PSA has started to go up.He had a little bit of an elevated PSA and elevated PSA velocity. We did a JACKSPOOLER-3 test. It did just come back positive. [...] negative. IMPRESSION: 1. Elevated PSA and positive JACKSPOOLER-3 test. PLAN: I told Anurag to take [...] Moon Maloney M.D./la-17 cc: Casey Berry II, Daron[facility] Electronically signed by:Moon Maloney M.D. Oct 26 2016 12:13PM FIELD CLERK * Moon Maloney MD - 08/27/2016 12:00 AM CST UROLOGY CRISTIAN BLEDSOE : 1945 HX: [id number] DOS: 08/27/2016 SUBJECTIVE: Cristian comes to see [...] because we are going to do a JACKSPOOLER-3 test. LABORATORY DATA: AUA symptom score is 1. He has absolutely no trouble urinating. PSA is 5.4. IMPRESSION: 1. Elevated PSA velocity. PLAN: We are going to go ahead and get a JACKSPOOLER-3 test because his velocity is really if [...] going to go ahead and get a JACKSPOOLER-3 test today. Obviously if that is positive, [...] course risks of bleeding. However, if the JACKSPOOLER-3 is negative, then I would just see him in six months for a PSA. Total time spent with the patient was 25 minutes with greater than 50% in counseling. Moon Maloney M.D./la-21 cc: Casey Berry II, D.O./[facility] Electronically signed by:Moon Maloney M.D. Sep 18 2016 1:34PM FIELD CLERK * Moon Maloney MD - 02/11/2016 12:00 AM CDT UROLOGY CRISTIAN BLEDSOE : 1945 HX: [id number] DOS: 02/11/2016 SUBJECTIVE: Cristian comes to see [...] in counseling. Moon Maloney M.D./la-2 cc: Casey Berry II, D.O./[facility] Electronically signed by:Moon Maloney M.D. Feb 24 2016 9:43AM FIELD CLERK * Moon Maloney MD - 11/07/2015 12:00 AM CDT UROLOGY CRISTIAN BLEDSOE : 1945 HX: [id number] DOS: 11/07/2015 REFERRING PROVIDER: Dr. Berry. HISTORY OF PRESENT ILLNESS: Anurag Coates is here referred by Dr. eBrry because of an elevated PSA. The patient [...] He is a former smoker, retired from [employer], he is . FAMILY HISTORY: Negative for [...] Moon Maloney M.D./la-29 cc: Casey Berry II, D.O./[facility]-Anitha Electronically signed by:Moon Maloney M.D. Nov 25 2015 10:34AM FIELD CLERK documented in this encounter Plan of Treatment Not on file documented as of this encounter Visit Diagnoses Not on filedocumented in this encounter Care Teams Manager Regulatory Relationship Specialty Start Date End Date Casey Berry II, DO PCP - General 11/22/06 08/17/19 Stephani Aleman MD PCP - General Family Medicine 08/18/19 09/16/20 Bianka Loera, GAS BRAZER [address] [place] [address] PCP - General Nurse Practitioner Family 09/17/2001/10 Desiree Patrick MD [address] [place] [address] PCP - General Electrophysiology 02/23/22 03/09/22 Desiree Patrick MD [address] [place] [address] 08/09/17 Farrah Nicole APRN,SOIL CONSERVATIONIST [address] [place] [address] 08/09/17 Bry Echevarria MD [address] [place] [phone] 08/09/17 Casey Berry II, DO 08/09/17 Shruti Vergara, RN RN Registered Nurse 08/27/20 documented as of this encounter Additional Source Comments PLEASE NOTE: Replies to this message will not be received.[facility] and [facility]
--- OUTSIDE RECORDS SUMMARY | 2024-07-13 16:24 | XMS_ITS | Encounter Summary ---
Author Organization [facility] Address [address] [place] [address] Care Team Providers Care Phlebotomy Supervisor Name Role Phone Jamal CARLISLE DO, Robert William Primary Care Provide r Unavailable Desiree Patrick MD Unavailable Farrah Nicole APRN, CNS Unavailable Bry Echevarria MD Unavailable Jamal CARLISLE DO, Robert William Unavailable Unav Stephani Diaz MD Primary Care Provider Shruti Vergara RN Unavailable Unavailable Bianka Loera CNP Primary Care Provider [phone] Desiree Patrick MD Primary Care P rovider Encounter Details Date Type Department Care Team (Late st Contact Info) Description 11/15/2006 Clinic Encounter [facility] Dermatology [address] [place] [address] Ganga Anderson MD Social History Tobacco Use Types Packs/Day Years Used Date Smoking Tobacco: Never Assessed Sex and Gender Information Value Date Recorded Sex Assigned at Not on file Legal Sex Male 6:02 AM BLOWER OPERATOR Gender Identity Not on file Sexual Orientation Not on file documented as of this encounter Progress Notes * Ganga Anderson MD - 2006 12:00 AM CDT Rohan Carroll : 1945 E: Ganga Anderson MD/[place] DERMATOLOGY OFFICE VISIT CHART: [id number] P Date of Service: 2006 Doc #: [id number] P Attending Physician: None available SUBJECTIVE: This [...] 1 cc was used locally. Using a Buffalo blade, the skin biopsy was then performed. [...] will set up treatment as indicated. [facility]/[place] documented in this encounter Plan of Treatment Not on file documented as of this encounter Visit Diagnoses Not on filedocumented in this encounter Care Teams Phlebotomy Supervisor Relationship Specialty Start Date End Date Casey Berry II, DO PCP - General 11/22/06 08/17/19 Stephani Aleman MD PCP - General Family Medicine 08/18/19 09/16/20 Bianka Loera CNP [address] [place] [address] [address] [place] [address] PCP - General Nurse Practitioner Family 09/17/20 7/12/31 Desiree Patrick MD [address] [place] [place] [place] [address] PCP - General Electrophysiology 02/23/22 03/09/22 Desiree Patrick MD [address] [place] [address] 08/09/17 Farrah Nicole APRN,CASTINGS DRAFTER [address] [place] [place] [address] 08/09/17 Bry Echevarria MD [address] [place] [address] 08/09/17 Casey Berry II, DO 08/09/17 Shruti Vergara RN RN Registered Nurse 08/27/20 documented as of this encounter Additional Source Comments PLEASE NOTE: Replies to this message will not be received.[facility]
--- OUTSIDE RECORDS SUMMARY | 2024-07-13 16:25 | XMS_ITS | Encounter Summary ---
Author Organization [facility] Address [address] [place] [address] Care Team Providers Care Wire Rope Fabrication Supervisor Name Role Phone Unavailable Primary Care Provider Unavailabl e Reason for Referral * Outpatient (Routine) - Authorized Specialty Diagnoses / Procedures Referred By Malinda wan Referred To Contact Neurology Vic Mae M.D. [address] [address] Phone: tel: fax: [facility] Region Referral ID Status Reason Start Date Expiration Date V isits Requested Visits Authorized [id number] Authorized 06/07/2024 12/07/2025 1 1 RESTATION WORKER Reason for Visit * Reason Comments Parkinson's Disease * Appointment Request (Routine) - Pending Review Specialty Diagnoses / Procedures Referred By Contac t Referred To Contact Neurology Referral ID Status Reason Start Date Expiration Date V isits Requested Visits Authorized [id number] Pending Review 05/08/2024 05/08/2025 1 1 Encounter Details Date Type Department Care Team (Latest Contact Info) Description 06/07/2024 1:00 PM REFORESTATION WORKER Office Visit Department of Neurology in [place], [place] [address] [place] [phone] Vic Mae M.D. [address] [place] [phone] Parkinsonism Unspecified (HCC) (Primary Dx); Major [...] Comments Blood Pressure 97/68 06/07/2024 12:41 PM REFORESTATION WORKER Pulse 72 06/07/2024 12:41 PM REFORESTATION WORKER Temperature - - Respiratory Rate - - Oxygen Saturation - - Inhaled Oxygen Concentration - - Weight 78.9 kg (174 lb) 06/07/2024 12:41 PM REFORESTATION WORKER Height - - Body Mass Index 23.31 [...] having more difficulties. 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
--- NOTE | 2024-07-14 10:15 | CRLHL7_ITS ---
For Patients: As a result of the 21st Century Cures Act, medical imaging exams and procedure reports are released immediately into your electronic medical record. You may view this report before your referring provider. If you have questions, please contact your health care provider. INDICATION: Difficulty swallowing TECHNIQUE: Modified barium swallow. Fluoroscopic time 1 minute 30 seconds. COMPARISON: None FINDINGS/IMPRESSION: Anatomical structures are normal. Swallowing mechanism appears within normal limits. No episodes of penetration or aspiration. No significant findings. Dictated by Kofi Waller MD @ 07/14/2024 11:38:02 AM (Electronically Signed)
--- NOTE | 2024-07-14 13:45 | SLP.MBS ---
CONSTRUCTION ELECTRICIAN Modified Barium Swallow CONSTRUCTION ELECTRICIAN Modified Barium Swallow Eval Start: 07/14/24 09:54 Text: Status: Active Freq: Protocol: Document 07/14/24 09:54 STEPHEN (Rec: 07/14/24 09:57 STEPHEN [id number]) E-signed By TORITO Butler Modified Barium Swallow Evaluation Evaluation Reason for Referral Patient referred for outpatient modified barium swallow study due to increased choking when eating. Medical Diagnosis R09.89 Other specified symptoms and signs involving circulatory and respiratory symptoms. Treatment Diagnosis Oropharyngeal dysphagia Date of Order 06/28/24 Type of Referral Evaluation Onset of Patient's Problem 06/28/24 (date of order; clinic visit to PCP). Per provider note, This is a 78 year old patient, who is here today for choking episode. 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 In 2016 when he was not diagnosed he had some problems with swallowing and had some spastic esophagus used Reglan for awhile and then problems just went away. Now in the last several weeks patient has had some episodes again about 4 times. It does not feel like he is aspirating it is just that food gets stuck in esophagus. He coughs a long time. He is able to drink fluids. He has not ever had any aspiration pneumonias. was wondering if he could use Reglan, however it is not a good choice as patient has quite severe Parkinson's disease. I would recommend a barium swallow, he already has modified diet. Pertinent Medical History Pertinent past medical history includes Parkinsonism (G20.C) , Lewy body dementia without behavioral disturbance (G31.83 , F01.80) and esophageal dysmotility (K22.4). Medications Sinemet (2.5 tabs TID) Hearing Status Bilateral hearing aides Vision Status Glasses Subjective/Pain Comment Patient was a poor historian, however, his explained that patient has choked about four times over the past month . He complains of dry mouth and she feels that his dryness if affecting his swallowing. She has been trying to keep track of what foods trigger his coughing and she has noted salmon (served on second day so more dry) and turkey that she put in her wet primer powder blender. She reports the coughing doesn't happen right when he swallows but about 10 seconds after and his coughing can last for hours. Caregiver's Name Flor, spouse. Assessment/Impressions ASSESSMENT Trials of thin, puree and solid were administered under fluoroscopy in lateral and A/P view. Thin: Order of presentation 1 spoon, 2-3 cup, 4-5 straw, 9 cup, liquid wash; fed by clinician, hand over hand for cup drinks. Oral phase: premature pharyngeal entry with swallow triggered mainly at the valleculae but a few times was triggered at the pyriform sinus, mild oral residue along base of tongue with puree and solids textures . Pharyngeal phase: Mildly reduced epiglottic inversion with minimal to mild pharyngeal residue more in the valleculae than pyriform sinus. No laryngeal penetration or aspiration. Puree: Order of presentation 6 -7; fed by clinician. Oral phase: Premature pharyngeal entry with swallow triggered at the vallecullae. Pharyngeal phase: Mildly reduced epiglottic inversion with mild to moderate pharyngeal residue more in the valleculae than pyriform sinus. No laryngeal penetration or aspiration. A second dry swallow helped remove majority of the residue. Solid: Order of presentation 8 ; fed by clinician. Oral phase : Premature pharyngeal entry with swallow triggered at the vallecullae. Pharyngeal phase: Mildly reduced epiglottic inversion with mild pharyngeal residue more in the valleculae than pyriform sinus . No laryngeal penetration or aspiration. A second dry swallow helped remove majority of the residue. A liquid wash was not helpful. Esophageal sweep was completed with thin liquids with no obvious esophageal deficits. Please refer to radiology report for further details. A/ P view was used to assess pharyngeal residue which was symmetrical in both the valleculae and pyriform sinus. IMPRESSION Video swallow study was completed per provider orders. Patient presents with a minimal oropharyngeal dysphagia. Oral phase marked by premature pharyngeal entry with the swallow triggered at the valleculae mainly and occasionally at the pyriform sinus with thin liquids and valleculae with puree and solids. Minimal oral residue along base of tongue with puree solids. Pharyngeal phase marked by mildly reduced epiglottic inversion resulting in mild to moderate pharyngeal residue in the valleculae more than pyriform, which increased as the texture increased. A second dry swallow was more effective at removing pharyngeal residue than a liquid wash. No laryngeal penetration or aspiration observed during todays study. Recommend a Regular/Easy to Chew diet with thin liquids, with patient/ spouse self-selecting more soft and moist food. Safe swallow strategies include upright for all po and remain upright 30 minutes after meals , take a drink before meals to help reduce dry mouth, small bites/sips, slow rate of intake and take a second swallow with solids that tend to stick more. Barium Swallow Recommendations Treatment/Strategies Treatment Recommendation Comments x1 treatment session for education on video swallow study results and recommended diet and safe swallow strategies. Modified Barium Swallow Education Education Topics Teaching Recipient Patient,Family Teaching Methods Verbal Other Teaching Methods cine images from MBS Response to Teaching Verbalize Understanding Therapist Signature/License Number Camilo Baird MS CCC-CONSTRUCTION ELECTRICIAN # [id number] Speech/Language Pathology Billing Units Billing Units Eval Swallow Motion Fluoro 1
--- NOTE | 2024-07-14 13:51 | SLP.DPN ---
SOFTWARE ENGINEER DEVELOPER Daily Progress Note SOFTWARE ENGINEER DEVELOPER Daily Progress Note Start: 07/14/24 12:34 Freq: Status: Active Protocol: Document 07/14/24 12:34 STEPHEN (Rec: 07/14/24 12:41 STEPHEN [id number]) E-signed By Camilo Baird, SOFTWARE ENGINEER DEVELOPER SOFTWARE ENGINEER DEVELOPER Daily Progress Note Subjective Note Type Daily Note,Discharge Note Visit Number 1 Subjective/Pain Comments Both patient and spouse eager to learn about results of study and what they can do to help reduce dysphagia. Pain Since Last Visit None Daily Treatment Information Interventions Provided Today Education on video swallow study results, safe swallow strategies and xerostomia. Total Treatment Time (Minutes) 15 Query Text:Eval and Treatment total time Goals/Functional Outcomes Goals/Functional Outcomes Patient and spouse will verbalize understanding of todays video swallow study results and recommendations. Goal met 07/14/24. Daily Assessment/POC Assessment SOFTWARE ENGINEER DEVELOPER provided education on the results of today's video swallow study using cine images, how dementia can affect swallowing, xerostomia (handout given) and recommended diet and safe swallow strategies (handout given). Both patient and spouse verbalize understanding . Spouse asking appropriate questions and satisfied with SOFTWARE ENGINEER DEVELOPER information. Teaching Methods Verbal,Handout Daily Plan of Care Discharge Treating Therapist's Name & License Camilo Baird MS CCC-SOFTWARE ENGINEER DEVELOPER # Number [id number] Recertification Information Current Treatment Frequency evaluation and x1 treatment session Onset Date of Patient's Chief Complaint 06/28/24 Rehab Potential/Disability Magna Good with assistance from spouse. Interventions Provided During Treatment Video swallow study assessment Comments , education. Medical Necessity Justification of Training of Caregivers Continued Skilled Service Date of Last Visit to Physician 06/28/24 Initial Certification Date (Date of 07/14/24 First Visit to Therapy) Most Recent Visit 07/14/24 I Certify That I Have Established, All Therapy Services/Plan Provided, & Supervised Physician Signature Shows Agreement with Dates & Medical Necessity Treatment Plan/Cert Physician Signature & Date Required Please Sign/Date Here Discharge Information Date of First Visit for Therapy 07/14/24 Date of Last Visit for Therapy 07/14/24 Total Number of Visits 1 Initial Primary Functional Limitations/ Evaluation and one time Concerns therapy session to provide education on video swallow study results, xerostomia, diet and safe swallow recommendations. Comments Regarding Expected Functional With assistance from spouse, Outcomes anticipate patient will be able to follow safe swallow strategies. Interventions Provided During Treatment Video swallow study evaluation Comments , education. Discharge from Therapy Comments Eval and one treatment session for education.
== END 2024-07-14 10:05 | disposition home or self-care (01) ==
LOC: RAD 10:06
PROVIDERS: PCP Family Medicine; Visit Provider Family Medicine
DX: R13.10 Dysphagia, unspecified (principal); R09.89 Other specified symptoms and signs involving the circulatory and respiratory systems
CPT/HCPCS: 74230; 92526; 92611

== ENCOUNTER 2024-09-07 10:18 | Outpatient (CLI) | payer BC, SELFPAY | END 2024-09-07 10:19 | disposition home or self-care (01) | LOC: NFLDREF 09-08 10:11 | PROVIDERS: PCP Family Medicine; Referring Provider Family Medicine; Visit Provider Internal Medicine | DX: I48.91 Unspecified atrial fibrillation (principal); I48.92 Unspecified atrial flutter | CPT/HCPCS: 80048; 82550; 84132 ==

== ENCOUNTER 2024-09-14 08:06 | Outpatient (CLI) | payer BC, SELFPAY | END 2024-09-14 08:07 | disposition home or self-care (01) | LOC: NFLDREF 09-15 07:40 | PROVIDERS: PCP Family Medicine; Referring Provider Family Medicine; Visit Provider Family Medicine | DX: E78.5 Hyperlipidemia, unspecified (principal); C61 Malignant neoplasm of prostate; I10 Essential (primary) hypertension; R73.01 Impaired fasting glucose; M81.0 Age-related osteoporosis without current pathological fracture; R63.4 Abnormal weight loss; Z12.5 Encounter for screening for malignant neoplasm of prostate; Z86.39 Personal history of other endocrine, nutritional and metabolic disease | CPT/HCPCS: 80053; 80061; 82306; G0103 ==

== ENCOUNTER 2024-11-30 10:41 | Outpatient (CLI) | payer BC, SELFPAY | END 2024-11-30 10:42 | disposition home or self-care (01) | LOC: NFLDREF 12-06 17:56 | PROVIDERS: PCP Family Medicine; Referring Provider Family Medicine; Visit Provider Internal Medicine | DX: I48.91 Unspecified atrial fibrillation (principal); I48.92 Unspecified atrial flutter | CPT/HCPCS: 80048 ==

== ENCOUNTER 2025-01-29 21:20 | Outpatient (CLI) | payer BC, SELFPAY | END 2025-01-29 21:21 | disposition home or self-care (01) | PROVIDERS: PCP Family Medicine; Visit Provider Emergency Medicine Emergency Medical Services | DX: R41.82 Altered mental status, unspecified (principal) | CPT/HCPCS: A0425; A0427 ==

== ENCOUNTER 2025-01-29 21:48 | Inpatient (IN) | payer MEDICARE, BC, SELFPAY ==
--- OUTSIDE RECORDS SUMMARY | 2021-08-27 07:41 | XMS_ITS | Continuity of Care Document ---
Author Organization [facility] Address [address] [place] [address] Phone Care Team Providers Care Adult Family Home Program Manager Name Role Phone [facility] Unavailable Unavailable Allergies, Adverse Reactions, Alerts Substance Reaction Status Criticality Sulfa (Sulfonamide Antibiotics) rash Active No Information PENICILLIN rash Active No Information Medications Medication Instructions Dosage Effective Dates (start - stop) Status Comments Pehw-Eeuz-Hispe 1%/0.5%/.01% OPHTHALMIC DROPS Apply one drop to [...] Diagnoses Date Provider Providers Copied on Encounter [facility], [address] [place], [id number], [place] tel:[phone] [facility] No Information 2 [facility]. [address] [place], [id number]. tel:[phone] Referring Provider: Timoteo Zhao, [address] [place], [address] . tel:[phone] [facility], [address] [place], [place], [id number], [place] tel:[phone] [facility] No Information 2 [facility]. [address] [place], [address]. tel:[phone] Referring Provider: Timoteo Zhao, [address] [place], [address] . tel:[phone] [facility], [address] [place], [id number], [place] tel:[phone] [facility] No Information 9 [facility]. [address] [place], [address]. tel:[phone] Referring Provider: Timoteo Zhao, [address] [place], [address] . tel:[phone] [facility], [address], [id number], [place] tel:[phone] [facility] No Information 9 [facility]. [address] [facility], [place], [place], [address]. tel:[phone] Referring Provider: Timoteo Zhao, [address] [place] [address], [address] . tel:[phone] [facility], [address] [place], [place], [address], tel:[phone] [facility] No Information 9 Dave Mahmood. [address] [place] [address], [id number], [place]. tel:[phone] Family History Family Member Type Diagnosis Age At Onset No Information Payers Payer name Insurance type Covered republican ID Authoriza tion(s) [facility] [id number] Social History Type Description Quantity Date Captured [...]
--- OUTSIDE RECORDS SUMMARY | 2021-08-27 07:41 | XMS_ITS | Continuity of Care Document ---
Author Organization [facility] Address [address] [place] [address] Phone Care Team Providers Care Executive Administrative Asst Name Role Phone [facility], [facility] Unavailable Unavailable Allergies, Adverse Reactions, Alerts Substance Reaction Status Criticality Sulfa (Sulfonamide Antibiotics) rash Active No Information PENICILLIN rash Active No Information Medications Medication Instructions Dosage Effective Dates (start - stop) Status Comments Ouln-Saup-Dinpu 1%/0.5%/.01% OPHTHALMIC DROPS Apply one drop to [...] Diagnoses Date Provider Providers Copied on Encounter [facility], [address] [place], [id number], [place] tel:[phone] [facility] No Information 2 [facility]. [address] [place], [address]. tel:[phone] Referring Provider: Timoteo Zhao, [address] [place], [address] . tel:[phone] [facility], [address] [place], [place], [address], [place] tel:[phone] [facility] No Information 2 [facility]. [address] [place], [id number]. tel:[phone] Referring Provider: Timoteo Zhao, [address] [place], [address] . tel:[phone] [facility], [address] [place], [address], [place] tel:[phone] [facility] No Information 9 [facility]. [address] [place], [address]. tel:[phone] Referring Provider: Timoteo Zhao, [address] [place], [address] . tel:[phone] [facility], [address] [place], [address], [place] tel:[phone] [facility] No Information 9 [facility]. [address] [facility], [place], [place], [address]. tel:[phone] Referring Provider: Timoteo Zhao, [address] [place] [address], [address] . tel:[phone] [facility], [address] [place], [place], [address], tel:[phone] [facility] No Information 9 Dave Mahmood. [address] [place] [address], [id number], [place]. tel:[phone] Family History Family Member Type Diagnosis Age At Onset No Information Payers Payer name Insurance type Covered democrat ID Authoriza tion(s) [facility] [id number] Social History Type Description Quantity Date Captured [...]
--- OUTSIDE RECORDS SUMMARY | 2021-09-16 09:43 | XMS_ITS | Continuity of Care Document ---
Author Organization [facility] Address [address] [place] [address] Phone Care Team Providers Care Supervisor Mapping Name Role Phone Timoteo Acosta D.O. Unavailable [...] Diagnoses Date Provider Providers Copied on Encounter [facility], [address] [place] [address], [id number], tel:[phone] [facility] No Information Dave Mahmood. [address] [place] [address], [id number], [place]. tel:[phone] [facility], [address] [place] [address], [id number], [place] tel:[phone] [facility] No Information Dave Mahmood. [address] [place] [address], [id number], [place]. tel:[phone] Referring Provider: Cherelle Borja [facility] [address], [place], [address]. tel:[phone] [facility], [address] [place] [address], [id number], [place] tel:[phone] [facility] No Information Dave Mahmood. [address] [place] [address], [id number], [place]. tel:[phone] Referring Provider: Cherelle Borja [facility] [address], [place], [address]. tel:[phone] OFFICE/OUTPATI ENT VISIT, EST [facility], [address] [place] [address], [id number], [place] tel:[phone] [facility] decreased vision (chief complaint) PCO-OSDrusen (degenerative ) of macula, left eye Dave Mahmood. [address] [place] [address], [id number], [place]. tel:[phone] Referring Provider: Cherelle Borja [facility] [address], [place], [address]. tel:[phone] [facility], [address] [place] [address], [id number], tel:[phone] [facility] No Information Dave Mahmood. [address] [place] [address], [id number], . tel:[phone] Referring Provider: Timoteo Zhao, [address] [place] [address], [id number]. tel:[phone] [facility], [address] [place] [address], [id number], tel:[phone] [facility] No Information Dave Mahmood. [address] [place] [address], [id number], [place]. tel:[phone] Referring Provider: Timoteo Zhao, [address] [place] [address], [address] [place] [address]. tel:[phone] OFFICE/OUTPATI ENT VISIT, [facility], [address] [place] [address], [address] [place] [address], tel:[phone] [facility] blurry vision (chief complaint) Cat-combined- ODCat-Pseudop hakia Dave Mahmood. [address] [place] [address], [id number], [place]. tel:[phone] Referring Provider: Timoteo Zhao, [address] [place] [address], [address] [place] [address]. tel:[phone] [facility], [address] [place] [address], [id number], [place] tel:[phone] [facility] No Information Dave Mahmood. [address] [place] [address], [id number], [place]. tel:[phone] Referring Provider: Timoteo Zhao, [address] [place] [address], [id number]. tel:[phone] [facility], [address] [place] [address], [id number], tel:[phone] [facility] No Information Dave Mahmood. [address] [place] [address], [id number], [place]. tel:[phone] Referring Provider: Timoteo Zhao, [address] [place] [address], [id number]. tel:[phone] [facility], [address] [place] [address], [id number], tel:[phone] [facility] No Information Dave Mahmood. [address] [place] [address], [id number], [place]. tel:[phone] Referring Provider: Timoteo Zhao, [address] [place] [address], [id number]. tel:[phone] [facility], [address] [place] [address], [id number], tel:[phone] [facility] No Information Dave Mahmood. [address] [place] [address], [id number], [place]. tel:[phone] Referring [facility]: [facility] [address], [place], [address]. tel:[phone] OFFICE/OUTPATI ENT VISIT, [facility], [address] [place] [address], [id number], [place] tel:[phone] [facility] 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 [address] [place] [address], [id number], [place]. tel:[phone] Referring Provider: Cherelle Borja [facility] [address], [place], [address]. tel:[phone] [facility], [address] [place] [address], [id number], [place] tel:[phone] [facility] No Information Dave Mahmood. [address] [place], [place], [id number], . tel:[phone] Referring Provider: Timoteo Zhao, [address] [place], [address]. tel:[phone] Family History Family Member Type Diagnosis Age At Onset No Information Payers Payer name Insurance type Covered alliance party ID Viet dillon(s) [facility] [id number] Social History Type Description Quantity Date Captured [...]
--- OUTSIDE RECORDS SUMMARY | 2021-09-16 09:43 | XMS_ITS | Continuity of Care Document ---
Author Organization [facility] Address [address] [place] [address] Phone Care Team Providers Care Face Man Name Role Phone Timoteo Acosta D.O. Unavailable [...] Diagnoses Date Provider Providers Copied on Encounter [facility], [address] [place] [address], [id number], tel:[phone] [facility] No Information Dave Mahmood. [address] [place] [address], [id number], [place]. tel:[phone] [facility], [address] [place] [address], [id number], [place] tel:[phone] [facility] No Information Dave Mahmood. [address] [place] [address], [id number], [place]. tel:[phone] Referring Provider: Cherelle Borja [facility] [address], [place], [address]. tel:[phone] [facility], [address] [place] [address], [id number], [place] tel:[phone] [facility] No Information Dave Mahmood. [address] [place] [address], [id number], [place]. tel:[phone] Referring Provider: Cherelle Borja [facility] [address], [place], [address]. tel:[phone] OFFICE/OUTPATI ENT VISIT, EST [facility], [address] [place] [address], [id number], [place] tel:[phone] [facility] decreased vision (chief complaint) PCO-OSDrusen (degenerative ) of macula, left eye Dave Mahmood. [address] [place] [address], [id number], [place]. tel:[phone] Referring Provider: Cherelle Borja [facility] [address], [place], [address]. tel:[phone] [facility], [address] [place] [address], [id number], tel:[phone] [facility] No Information Dave Mahmood. [address] [place] [address], [id number], . tel:[phone] Referring Provider: Timoteo Zhao, [address] [place] [address], [id number]. tel:[phone] [facility], [address] [place] [address], [id number], tel:[phone] [facility] No Information Dave Mahmood. [address] [place] [address], [id number], [place]. tel:[phone] Referring Provider: Timoteo hZao, [address] [place] [address], [address] [place] [address]. tel:[phone] OFFICE/OUTPATI ENT VISIT, [facility], [address] [place] [address], [address] [place] [address], tel:[phone] [facility] blurry vision (chief complaint) Cat-combined- ODCat-Pseudop hakia Dave Mahmood. [address] [place] [address], [id number], [place]. tel:[phone] Referring Provider: Timoteo Zhao, [address] [place] [address], [address] [place] [address]. tel:[phone] [facility], [address] [place] [address], [id number], [place] tel:[phone] [facility] No Information Dave Mahmood. [address] [place] [address], [id number], [place]. tel:[phone] Referring Provider: Timoteo Zhao, [address] [place] [address], [id number]. tel:[phone] [facility], [address] [place] [address], [id number], tel:[phone] [facility] No Information Dave Mahmood. [address] [place] [address], [id number], [place]. tel:[phone] Referring Provider: Timoteo Zhao, [address] [place] [address], [id number]. tel:[phone] [facility], [address] [place] [address], [id number], tel:[phone] [facility] No Information Dave Mahmood. [address] [place] [address], [id number], [place]. tel:[phone] Referring Provider: Timoteo Zhao, [address] [place] [address], [id number]. tel:[phone] [facility], [address] [place] [address], [id number], tel:[phone] [facility] No Information Dave Mahmood. [address] [place] [address], [id number], [place]. tel:[phone] Referring [facility]: [facility] [address], [place], [address]. tel:[phone] OFFICE/OUTPATI ENT VISIT, [facility], [address] [place] [address], [id number], [place] tel:[phone] [facility] 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 [address] [place] [address], [id number], [place]. tel:[phone] Referring Provider: Cherelle Borja [facility] [address], [place], [address]. tel:[phone] [facility], [address] [place] [address], [id number], [place] tel:[phone] [facility] No Information Dave Mahmood. [address] [place], [place], [id number], . tel:[phone] Referring Provider: Timoteo Zhao, [address] [place], [address]. tel:[phone] Family History Family Member Type Diagnosis Age At Onset No Information Payers Payer name Insurance type Covered constitution party ID Viet dillon(s) [facility] [id number] Social History Type Description Quantity Date Captured [...]
[2025-01-29] VITALS (18 sets, daily range): BP systolic 94–147; BP diastolic 65–104; PULSE 107–149; RESP 7–25; TEMP 37.2; O2SAT 94–97; BMI 23.1
--- OUTSIDE RECORDS SUMMARY | 2025-01-29 21:50 | XMS_ITS | Data Portability ---
Author Organization [facility], [facility] Address [address] [place] [address] Care Team Providers Care Tail Sawyer Name Role Phone [facility] Primary Care Provider Assessment No assessment recorded. [...] By Organization Details Last Modified Time 03/17/2022 [id number] will plan follow up in December next year with PSA. [email or web address] Not available 03/17/2022 14:11:53 12/10/2022 [id number] doing well with undetectable PSA, plan follow up 1 year with PSA [email or web address] Not available 12/10/2022 11:43:14 12/14/2023 [id number] rtc 1 year with PSA. [email or web address] Not available 12/14/2023 11:08:24 Reason for Referral None Reported. Results Created Date Observation Date Name Description Value Unit Range Abnormal Flag Note LastModifiedBy Organization Detail LastModifiedTime Result Notes None recorded. Medical Equipment None Reported. Allergies Allergen ID Allergen Name Allergen Category Reaction Reaction Severity Criticality Documentation Date Start Date Code Code System Note Provider Name and Address Organization Details Recorded Time 982001 Product containin g penicilli n (product) medicatio n Not available Not available Not available 12/10/2022 78082 8001 SNOMED Dona joaquin [facility] 11:31:20 [id number] Substance with sulfonami de structure and antibacte rial mechanism of action (substanc e) medicatio n Not available Not available Not available 12/10/2022 42756 8003 SNOMED Dona Della SHADI joaquin [facility] 11:31:26 Medications Name Sig Start Date [...] Updated DateTime 12/10/2022 185.42 cm 26 kg/m2 02025.7 g Dona Hull [facility] 12/10/2022 11:31:06 Date Recorded Body height Body mass index (BMI) Body weight Provider Name and Address Organization Details Last Updated DateTime 12/14/2023 185.42 cm 26 kg/m2 83852.7 g Amandeep Knox MD [address], [place], [address], [facility] 12/14/2023 10:57:12 Date Recorded Body height Body mass index (BMI) Body weight Provider Name and Address Organization Details Last Updated DateTime 03/17/2022 185.42 cm 26 kg/m2 98376.7 g Winston Diane [facility] 03/17/2022 13:52:15 Social History Question Answer Notes LastModified by Organizat ion Details LastModified Time Tobacco Smoking Status Former Smoker Winston Diane [facility], [facility] 03/17/2022 13:52:26 What Is Your Level Of Caffeine Consumption? Occasional [email or web address] Information not available 12/10/2022 When Did You Quit Smoking? 16+yearssteffany morgan [email or web address] Information not available 12/10/2022 What Was The Date Of Your Most Recent Tobacco Screening? 12/14/2023 [email or web address] Information not available 12/14/2023 Have You Ever Been Counseled For Unhealthy Alcohol Use? No [email or web address] Information not available 12/14/2023 Has Tobacco Cessation Counseling Been Provided? No [email or web address] Information not available 12/10/2022 How Many Days In The Past Year Have You Consumed 5 Or More Drinks? 0 [email or web address] Information not available 12/14/2023 Sex: Unknown Functional Status Question Answer Note LastModified by Organizat ion Details LastModified Time How many times per week do you consume alcohol? 1-2 times per week [email or web address] Information not available 12/10/2022 Do you use any illicit or recreational drugs? No [email or web address] Information not available 12/10/2022 Do you or have you ever used any other forms of tobacco or nicotine? No [email or web address] Information not available 12/10/2022 What is your level of alcohol consumption? Occasional [email or web address] Information not available 12/10/2022 Mental Status None recorded. Family History Relationship [...] Disease N Immunizations Vaccine Type Date Status Note Provider Nam e and Address Organization Details Recorded Time COVID-19, mRNA, LNP-S, PF, 30 mcg/0.3 mL dose 1 completed Amandeep Knox MD [address] [place] [address],[facility] [address], [place], [address], [facility] 12/14/2023 10:57:18 COVID-19, mRNA, LNP-S, PF, 30 mcg/0.3 mL dose 1 completed Amandeep Knox MD [address] [place] [address],[address], [address], [facility] 12/14/2023 10:57:18 COVID-19, mRNA, LNP-S, PF, 30 mcg/0.3 mL dose 1 completed Amandeep Knox MD [address] [place] [address],[facility] [address], [place], [address], [facility] 12/14/2023 10:57:19 COVID-19, mRNA, LNP-S, PF, 30 mcg/0.3 mL dose, enrique-sucrose 2 completed Amandeep Knox MD [address] [place] [address],[address], [place], [address], [facility] 12/14/2023 10:57:19 pneumococcal polysaccharide PPV23 0 completed Amandeep Knox MD [address] [place] [address],[facility] [address], [place], [address], [facility] 12/14/2023 10:57:19 Tdap 4 completed Amandeep Knox MD [address] [place] [address],[facility] [address], [place], [address], [facility] 12/14/2023 10:57:19 Novel [id number]-[id number], all formulations 0 completed Amandeep Knox MD [address] [place] [address],[facility] [address], [place], [address], [facility] 12/14/2023 10:57:19 Pneumococcal conjugate PCV 13 6 completed Amandeep Knox MD [address] [place] [address],[address], [place], [address], [facility] 12/14/2023 10:57:19 Pneumococcal conjugate PCV 13 7 completed Amandeep Knox MD [address] [place] [address],[address], [place], [address], [facility] 12/14/2023 10:57:19 zoster live 0 completed Amandeep Knox MD [address] [place] [address],[address], [place], [address], [facility] 12/14/2023 10:57:19 Influenza, high-dose, trivalent, PF 7 completed Amandeep Knox MD [address] [place] [address],[address], [place], [address], [facility] 12/14/2023 10:57:19 Influenza, high-dose, trivalent, PF 6 completed Amandeep Knox MD [address] [place] [address],[address], [place], [address], [facility] 12/14/2023 10:57:19 Influenza, high-dose, trivalent, PF 8 completed Amandeep Knox MD [address] [place] [address],[address], [place], [address], [facility] 12/14/2023 10:57:19 Influenza, high-dose, trivalent, PF 9 completed Amandeep Knox MD [address] [place] [address],[address], [place], [address], [facility] 12/14/2023 10:57:19 Influenza, high-dose, trivalent, PF 4 completed Amandeep Knox MD [address] [place] [address],[address], [place], [address], [facility] 12/14/2023 10:57:19 Influenza, split virus, trivalent, preservative 0 completed Amandeep Knox MD [address] [place] [address],[address], [place], [address], [facility] 12/14/2023 10:57:19 Influenza, split virus, trivalent, preservative 7 completed Amandeep Knox MD [address] [place] [address],[address], [place], [address], [facility] 12/14/2023 10:57:19 Influenza, split virus, trivalent, preservative 6 completed Amandeep Knox MD [address] [place] [address],[address], [place], [address], [facility] 12/14/2023 10:57:19 Influenza, split virus, trivalent, preservative 5 completed Amandeep Knox MD [address] [place] [address],[address], [place], [address], [facility] 12/14/2023 10:57:19 Influenza, split virus, trivalent, preservative 2 completed Amandeep Knox MD [address] [place] [address],[address], [place], [address], [facility] 12/14/2023 10:57:19 Influenza, split virus, trivalent, preservative 3 completed Amandeep Knox MD [address] [place] [address],[address], [place], [address], [facility] 12/14/2023 10:57:19 Influenza, split virus, trivalent, preservative 8 completed Amandeep Knox MD [address] [place] [address],[address], [place], [address], [facility] 12/14/2023 10:57:19 Influenza, split virus, trivalent, PF 0 completed Amandeep Knox MD [address] [place] [address],[address], [place], [address], [facility] 12/14/2023 10:57:19 Influenza, split virus, trivalent, PF 1 completed Amandeep Knox MD [address] [place] [address],[address], [place], [address], [facility] 12/14/2023 10:57:19 Influenza, split virus, quadrivalent, PF 0 completed Amandeep Knox MD [address] [place] [address],[address], [place], [address], [facility] 12/14/2023 10:57:19 Influenza, split virus, quadrivalent, PF 1 completed Amandeep Knox MD [address] [place] [address],[address], [place], [address], [facility] 12/14/2023 10:57:19 Influenza, split virus, quadrivalent, PF 5 completed Amandeep Knox MD [address] [place] [address],[address], [place], [address], [facility] 12/14/2023 10:57:19 Past Encounters Encounter ID Performer Location Encounter Start Date Encounter Closed Date Diagnosis/Indication Diagnosis SNOMED-CT Code Diagnosis ICD10 Code Diagnosis Note [id number] Amandeep Knox MD [address] [place] [address] 03/17/2022 13:41:31 03/19/2022 16:06:51 Malignant neoplasm of prostate 574816752 C61 s/p XRT and 8 month lupron in 2017. [id number] Amandeep Knox MD [address] [address] 12/10/2022 11:09:53 12/18/2022 17:00:28 Malignant neoplasm of prostate 505218313 C61 s/p XRT and 8 month lupron in 2017. [id number] Amandeep Knox MD [address] [address] 12/14/2023 10:50:05 12/15/2023 15:17:05 Carcinoma of prostate 971035847 C61 undetectab le PSA since 8 month lupron and XRT in 2017 Health Concerns Section Related Observation LastModified by Organization Detai ls LastModified Time None Recorded Concern Status LastModified by Organization Details LastModified Time None Recorded Advance Directives Directive None Recorded Payers Insurance Date Sequence Insurance Name Policy Number Policy Garcia Covered Member ID Garcia Member ID Guarantor Name 04/24/2024 1 [employer] [employer] 106 Rohan Carroll [id number] Rohan Carroll 04/24/[address] [facility] - FEP 106 Rohan Carroll [id number] Rohan Carroll Notes Date Note Type Note Provider Name and Address Organization Details Recorded Time 03/17/2022 text/html hx CaP. had lupr on and XRT done in 2017 in [place]. previous patient of Allyssanelly Maloney. had an episode of XRT cystitis maybe about a year ago, none since. had cysto then. PSA been low 0.02-0.03. last checked 12/2021. Amandeep Knox MD [address] [place] [address],[address], [place], [address], [facility] 03/17/2022 14:15:54 12/10/2022 text/html follow up CaP, h ad lupron and XRT in 2017. PSA last month still undetectable at his local lab. voiding OK, no heme/dysuria. Amandeep Knox MD [address], [place], [address], [facility] 12/10/2022 11:44:03 12/14/2023 text/html PSA 11/19/23: <0.06ng/mL follow up for prostate cancer. hx CaP tx with XRT and 8 month lupron in 2017. voiding OK, had some hematuria after a deep tissue massage a while back. Amandeep Knox MD [address] [place] [address],[address], [place], [address], [facility] 12/14/2023 11:09:20
--- OUTSIDE RECORDS SUMMARY | 2025-01-29 21:50 | XMS_ITS | Clinical Summary ---
Author Organization [facility] Address [address] [place] [address] Care Team Providers Care Surgical Assist Name Role Phone Unavailable Primary Care Provider Unavailabl e Source Comments You are receiving this document as you are listed as the primary care provider,follow-up provider, or the patient has been referred to you for consultation.This is in compliance with the Medicare and[facility] Cent[facility] EHR Incentive Program,which states Providers who transition their patient to another setting of careor provider of care or refers their patient to another provider of care shouldprovide summary care record for each transition of care or referral. [facility] Allergies Active Allergy Reactions Criticality Noted Date Comments Penicillins Hives,Rash High 02/03/2022 Sulfa Antibiotics Rash Medium 11/15/2015 Medications dofetilide (TIKOSYN) 250 MCG capsule Take 1 Capsule (250 mcg) by mouth two times a day. 3 Active donepezil (ARICEPT) 10 MG tablet Take 1 Tablet (10 mg) by mouth daily. 4 Active memantine (NAMENDA) 10 MG tablet Take 1 Tablet (10 mg) by mouth two times a day. 4 Active lisinopril (ZESTRIL) 10 MG tablet Take 1 Tablet (10 mg) by mouth daily. 4 Active Magnesium Hydroxide (DULCOLAX OR) Take 2 Tablets by mouth daily. Active carbidopa-levo dopa (SINEMET) 25-100 MG tablet Take 3 Tablets by mouth three times a day. 6:30a, 11a, 5p 810 Tablet 3 4 Active acetaminophen 500 MG tablet Take 1-2 Tablets (500-1,000 mg) by mouth every 4 hours as needed for Pain. Maximum acetaminophen dose is 4000 mg in 24 hours Active warfarin 5 MG tablet Managed by outside facility/provider 4 Active Social History Tobacco Use Types Packs/Day Years Used Date Smoking Tobacco: Never Assessed Sex and Gender Information Value Date Recorded Sex Assigned at Not on file Legal Sex Male 11:12 AM CDT Gender Identity Not on file [...] Health Maintenance Due Date Last Done Comments Adult Preventive Visit 1963 RSV Vaccine (1 - 1-dose 75+ series) 11/23/2019 Zoster/Shingles Vaccine (3 of 3) 11/10/2023 09/15/2023, 01/28/2010 COVID-19 Vaccine ( season) 2024 04/17/2023, 05/07/2022, 11/04/2021, Additional history exists Influenza Vaccine (#1) 2025 3, 04/13/2022, 03/25/2021, Additional history exists DTaP/Tdap/Td Vaccine (3 - Tdap) 09/14/2033 09/15/2023, 08/21/2013, 12/26/2002 Pneumococcal Vaccine 50+ Yrs Completed , 08/28/2015, 01/28/2010 HepA Vaccine Aged Out No longer eligi ble based on patient's age to complete this topic HepB Vaccine Aged Out No longer eligi ble based on patient's age to complete this topic Hib Vaccine Aged Out No longer eligi ble based on patient's age to complete this topic MCV4 Vaccine Aged Out No longer eligi ble based on patient's age to complete this topic Meningococcal B Vaccine Aged Out No l onger eligible based on patient's age to complete this topic Insurance [facility] FEDERAL Member Subscriber Plan / Payer (Ef fective 2015-Present) Name:Rohan Carroll Relation to Subscriber:Self Name:Rohan Carroll Payer ID:[id number] (NAIC) Group ID:[id number] Type:[employer] Address: [place] [phone] MEDICARE PART A
--- OUTSIDE RECORDS SUMMARY | 2025-01-29 21:50 | XMS_ITS | Clinical Summary ---
Author Organization [facility] Address [address] [place] [address] Care Team Providers Care Tile Classifier Name Role Phone Marli Sauceda MD Primary [...] by mouth once daily. 2 Active dofetilide 250 mcg capsuleIndication s:Paroxysmal atrial fibrillation (HC) Take 1 Capsule (250 mcg) by mouth every 12 hours. Patient is due for labs/EKG February 2025 180 Capsule 5 Active Active Problems Problem Noted Date Diagnosed Date Ascending aorta dilatation 04/24/2022 PAF (paroxysmal atrial fibrillation) 04/24/2022 Parkinson disease 04/24/2022 Encounters Date Type Department Care Team Description 11/30/2024 Orders Only [facility] Scanner 1 scan: (1-Ord) 11/30/2024 11/30/2024 Orders Only [facility] Scanner 1 scan: (1-Ord) [facility] 11/30/2024 11/21/2024 Refill [facility] [address] [facility] [address] [place] [address] Trish Martinez NP Refill Request (Dofetilide) 11/07/2024 Telephone [facility] [address] [facility] [address] [place] [address] Kiya Gomes RN Medication Management [...] Health Maintenance Due Date Last Done Comments Tetanus booster 11/23/1955 Depression screening for age 12+ 1956 BMI (ht and wt on same day) for age 18+ 1962 Pneumococcal series for age 50+ (1 of 2 - PCV) 11/23/1963 Zoster (shingles) series for age 50+ (1 of 2) 1994 RSV vaccine for adults or (1 - 1-dose 75+ series) 11/23/2019 COVID-19 vaccine series ( season) 2024 05/07/2022, 11/04/2021, 04/29/2021, Additional history exists Influenza Vaccine (#1) 2025 Hepatitis B series for 19+ Aged Out N o longer eligible based on patient's age to complete this topic Procedures Procedure Name Priority Date/Time Associated Diagnosis Comments SCAN-ELECTROCARDIOG THEA EKG 11/30/2024 12:00 AM CDT SCAN-LABORATORY REPORT 11/30/2024 12:00 AM CDT from Last 3 Months Results * SCAN-LABORATORY REPORT (11/30/2024 12:00 AM CDT) us Scanner OTHER Final Result * SCAN-ELECTROCARDIOGRAM EKG (11/30/2024 12:00 AM CDT) us Scanner OTHER Final Result from Last 3 Months Insurance [facility] Care Teams Tile Classifier Relationship Specialty Start Date End Date Marli Sauceda MD [address] [place] [address] PCP - General Family Practice 03/13/22
--- OUTSIDE RECORDS SUMMARY | 2025-01-29 21:50 | XMS_ITS | Clinical Summary ---
Author Organization [facility] Address [address] [place] [address] Care Team Providers Care Hide Cleaner Name Role Phone Unavailable Primary Care Provider Unavailabl e Source Comments Patient records contain information from all sites at [facility]. For routine questions regarding patient records, call [phone] during business hours, M-F 8:00 AM - 5:00 PM Central Time. Record requests for emergency care only can be directed to [phone] at any time.[facility] Allergies Active Allergy Reactions Criticality Noted [...] 2015 Overview (05/17/2023): 4.[address] x [address] [facility] [address] Encounters Date Type Department Care Team Description 11/21/2024 Refill Department of Neurology in [place], [place] [address], [place] [address] Vic Mae M.D. Med Refill from Last 3 Months Social History Tobacco Use Types Packs/Day Years Used Date Smoking Tobacco: Former Cigarettes Q uit: 1978 Smokeless Tobacco: Never Tobacco Cessation:Counseling Given: Not Answered Sex and Gender Information Value Date Recorded Sex Assigned at Not on file Legal Sex Male 11:39 AM CDT Gender Identity Not on file Sexual Orientation Not on file Last Filed Vital Signs Vital Sign Reading Time Taken Comments Blood Pressure 97/68 06/07/2024 12:41 PM [employer] Pulse 72 06/07/2024 12:41 PM [employer] Temperature 36.8 C (98.2 F) 05/17/2023 1:44 PM [employer] Respiratory Rate - - Oxygen Saturation - - Inhaled Oxygen Concentration - - Weight 78.9 kg (174 lb) 06/07/2024 12:41 PM [employer] Height 184 cm (6' 0.44) 04/15/2023 2:57 PM CDT Body Mass Index 23.31 04/15/2023 2:57 PM CDT Plan of Treatment Upcoming Encounters Date Type Department Care Team (Late st Contact Info) Description 04/19/2025 1:00 PM CDT Office Visit Department of Neurology in [place], [place] [address] [address] Vic Mae M.D. [address] [place] [address] Health Maintenance Due Date Last Done Comments Creatinine Level (Kidney Function Test) 1945 Potassium Level 1945 Sodium Level 1944 Fall Risk Screen (Annual) 07/12/2024 COVID-19 Vaccine ( season) 2024 04/17/2024, 04/17/2023, 05/07/2022, Additional history exists Influenza Vaccine (#1) 2025 , 05/04/2023, 04/13/2022, Additional history exists Office Visit for Blood Pressure Check / Re-check 06/07/2025 06/07/2024 DTaP,Tdap,and Td Vaccines (3 - Td or Tdap) 09/14/2033 09/15/2023, 08/21/2013 Pneumococcal vaccine (50+ years) Completed 08/28/2016, 08/28/2015, 01/28/2010 RSV vaccine - (32-36 weeks) or 60+ years Completed 04/17/2023 Zoster Vaccines Completed 11/16/2023, 12/2023, 01/28/2010 IPV Vaccines Aged Out No longer eligi ble based on patient's age to complete this topic Insurance [facility]
--- NOTE | 2025-01-29 21:53 | CRLHL7_ITS ---
For Patients: As a result of the Century Cures Act, medical imaging exams and procedure reports are released immediately into your electronic medical record. You may view this report before your referring provider. If you have questions, please contact your health care provider. Indication: Altered mental status Technique: Single view of the chest Comparison: None Findings/Impression: Evaluation degraded due to significant patient rotation. Cardiomegaly and prominence of the aortic silhouette, may be exaggerated due to patient positioning but could be further evaluated with cross-sectional imaging if there is concern for acute aortic pathology. No organized consolidation appreciated. Dictated by Khanh English MD @ 01/29/2025 11:21:43 PM (Electronically Signed)
--- NOTE | 2025-01-29 22:32 | ED.AMS ---
HPI - Altered Mental Status General Date Seen: 01/29/25 <Apolinar Emily Chai - Last Filed: 01/31/25 11:06> Chief Complaint: Altered Mental Status <Apolinar Paula DO - Last Filed: 01/31/25 11:06> Stated Complaint: mental status <Apolinar Paula DO - Last Filed: 01/31/25 11:06> Time Seen by Provider: 01/29/25 21:51 <Apolinar Frankram DO - Last Filed: 01/31/25 11:06> Source: family and EMS <Apolinar Paula - Last Filed: 01/31/25 11:06> Mode of arrival: EMS <Apolinar Paula - Last Filed: 01/31/25 11:06> Limitations: no limitations <Apolinar Paula DO - Last Filed: 01/31/25 11:06> History of Present Illness HPI narrative: Patient is an 79-year-old male with a history of Lewy body dementia presenting to the emergency department for altered mental status. He comes from assisted living with advanced care. Staff went to go check on him in the states his eyes are open he was just staring off into the distance while not responding. Due to this EMS was called. EMS states when they arrived he is answering questions but does appear to be confused. They were unable to assess what his baseline mental status is. I spoke to the patient he denies any pain. He knows his name and knows where he is. He does not know why he is here. His daughter came and she can not say for certain if he is more confused than normal. States he has good days and bad days. He does recognize her. Does state that if he does stare off into the distance he is likely hallucinating from the Lewy body dementia. He does take medications for his AFib. <Apolinar P [place], DO - Last Filed: 01/31/25 11:06> Related Data Home Medications: Home Medications ?Medication ?Instructions ?Recorded ?Confirmed dofetilide 250 mcg capsule 250 mcg PO BID 01/21/22 01/29/25 carbidopa 10 mg-levodopa 100 mg 2.5 tab PO TID 09/14/23 01/29/25 tablet (Sinemet) fexofenadine 180 mg tablet 180 mg PO DAILY 01/30/25 01/30/25 (Yris Allergy) melatonin 5 mg capsule 5 mg PO QHS insomnia 01/30/25 01/30/25 polyethylene glycol 3350 17 17 g PO DAILY 01/30/25 01/30/25 gram/dose oral powder (Miralax) warfarin 5 mg tablet 5 mg PO QPM 01/30/25 01/30/25 Previous Rx's ?Medication ?Instructions ?Recorded memantine 10 mg tablet 10 mg PO BID #180 tabs 08/28/24 <Apolinar Paula DO - Last Filed: 01/31/25 11:06> Allergies/Adverse Reactions: Allergies Allergy/AdvReac Type Severity Reaction Status Date / Time Penicillins Allergy Intermediate Rash Verified 01/29/25 23:09 Sulfa (Sulfonamide Allergy Rash Verified 01/29/25 23:09 Antibiotics) <Apolinar Paula DO - Last Filed: 01/31/25 11:06> Review of Systems Status of ROS: Reports: unobtainable due to mental status <Apolinar Paula DO - Last Filed: 01/31/25 11:06> [facility] Medical History: Medical History Rotator cuff tear, right (~04/2024) ?M75.101 - Unspecified rotator cuff tear or rupture of right shoulder, not specified as traumatic (ICD-10) Choking episode (06/2024) ?R09.89 - Other specified symptoms and signs involving the circulatory and respiratory systems (ICD-10) Frailty syndrome in geriatric patient ?R54 - Age-related physical debility (ICD-10) History of syncope ?Z87.898 - Personal history of other specified conditions (ICD-10) Right knee pain ?M25.561 - Pain in right knee (ICD-10) Closed fracture of left proximal humerus ?S42.202A - Unspecified fracture of upper end of left humerus, initial encounter for closed fracture (ICD-10) POLST (Physician Orders for Life-Sustaining Treatment) ?Z78.9 - Other specified health status (ICD-10) Spinal stenosis of lumbar region ?M48.061 - Spinal stenosis, lumbar region without neurogenic claudication (ICD-10) Acquired enlargement of sinus of Valsalva ?I71.9 - Aortic aneurysm of unspecified site, without rupture (ICD-10) Sleep apnea treated with nocturnal BiPAP ?G47.30 - Sleep apnea, unspecified (ICD-10) Health care directive on file ?Z78.9 - Other specified health status (ICD-10) Prostate cancer (2017) ?C61 - Malignant neoplasm of prostate (ICD-10) Vascular dementia (2017) ?F01.50 - Vascular dementia without behavioral disturbance (ICD-10) Central sleep apnea (2017) ?G47.31 - Primary central sleep apnea (ICD-10) Primary hypertension ?I10 - Essential (primary) hypertension (ICD-10) 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 ?Z79.01 - 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) use of anticoagulants (ICD-10) History of vitamin D deficiency ?Z86.39 - Personal history of other endocrine, nutritional and metabolic disease (ICD-10) History of malignant neoplasm of prostate (2018) ?Z85.46 - Personal history of malignant neoplasm of prostate (ICD-10) Esophageal dysmotility ?K22.4 - Dyskinesia of esophagus (ICD-10) Atrial fibrillation and flutter (2017) ?I48.91 - Unspecified atrial fibrillation (ICD-10) ?I48.92 - Unspecified atrial flutter (ICD-10) Ascending aortic aneurysm (2016) ?I71.2 - Thoracic aortic aneurysm, without rupture (ICD-10) <Apolinar Paula DO - Last Filed: 01/31/25 11:06> Surgical History: Surgical History History of external beam radiation therapy (~2016) ?Z92.3 - Personal history of irradiation (ICD-10) History of vasectomy ?Z98.52 - Vasectomy status (ICD-10) History of surgical removal of ganglion cyst ?Z98.890 - Other specified postprocedural states (ICD-10) History of colonoscopy (02/27/20) ?Z98.890 - Other specified postprocedural states (ICD-10) History of cataract extraction (2018) ?Z98.49 - Cataract extraction status, unspecified eye (ICD-10) <Apolinar Paula DO - Last Filed: 01/31/25 11:06> Family History: Family History Father Oral cancer Maternal Grandfather Stomach cancer Mother Dementia, Onset Age: 70 Paternal Grandfather Diabetes <Apolinar Paula DO - Last Filed: 01/31/25 11:06> Social History: Social History Narrative: -[place], 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/ [employer], 2 children, lives in independent living non smoker, quit 1978, 10 pack years alcohol 4-5 small glasses of wine / week exercise 3- 4/ week, walks with walker, 2 exercise classes What is your current living situation?: I presently have a place to live Problems where you live: no known problems Problems where you live details: na In the past 12 months, utilities in danger of being shut off: no In past 12 months, lack of transportation kept you from medical appts, meetings, work, or getting things needed for daily living: no In the past 12 mos, have been you worried that your food would run out before you had money to buy more?: never true In the past 12 mos, the food you bought just didn't last and you didn't have money to buy more?: never true Highest level of school completed/degree received: Master's degree Smoking Status: Former smoker How often do you have a drink containing alcohol: never AUDIT-C Alcohol total score: 0 Non-prescribed substance use: denies use Caffeine: No How often does anyone, including family, friends and others, physically hurt you: never How often does anyone, including family, friends and others, insult or talk down to you: never How often does anyone, including family, friends and others, threaten you with harm: never How often does anyone, including family, friends and others, scream or curse at you: never <Apolinar Paula DO - Last Filed: 01/31/25 11:06> Exam Narrative: Exam Narrative: Const: Well-nourished, Well-developed, in mild distress Eyes: PERRL, no conjunctival injection, and symmetrical lids HENT: Atraumatic external nose and ears. Moist mucous membranes. Neck: Symmetric, trachea midline, No thyromegaly. CVS: Irregular irregular rate and rhythm, No murmurs or gallops. Peripheral pulses 2+ and equal in all extremities RESP: Unlabored respiratory effort. Clear to auscultation bilaterally. GI: Nontender/Nondistended, No rebound or guarding. MSK:Extremities w/o deformity, Normal Active ROM Skin: Warm, Dry. No rashes or lesions. Neuro: Normal Muscle tone, No focal neurological deficits. Psych: Awake, Alert, & Oriented to self and place. Not aware to situation <Apolinar Paula, DO - Last Filed: 01/31/25 11:06> Const: Vital Signs, click to edit/add: Vital Signs - 24 hr 01/29/25 21:54 01/29/25 21:55 01/29/25 21:55 Temperature 98.9 F Pulse Rate 130 H 111 H Pulse Rate [Pulse Oximeter] 149 H Respiratory Rate 18 Blood Pressure 100/87 Blood Pressure [Ri ght Upper Arm] 100/87 Pulse Oximetry 95 96 95 Oxygen Delivery Me thod Room Air 01/29/25 22:00 01/29/25 22:13 01/29/25 22:15 Temperature Pulse Rate 117 H 141 H 127 H Pulse Rate [Pulse Oximeter] Respiratory Rate 25 H Blood Pressure 102/90 H Blood Pressure [Ri ght Upper Arm] Pulse Oximetry 95 94 94 Oxygen Delivery Me thod 01/29/25 22:19 01/29/25 22:30 01/29/25 22:32 Temperature Pulse Rate 137 H 129 H 133 H Pulse Rate [Pulse Oximeter] Respiratory Rate 12 7 L Blood Pressure 95/76 117/84 Blood Pressure [Ri ght Upper Arm] Pulse Oximetry 94 96 94 Oxygen Delivery Me thod 01/29/25 22:45 01/29/25 22:47 01/29/25 23:07 Temperature Pulse Rate 117 H 119 H Pulse Rate [Pulse Oximeter] Respiratory Rate 9 L 23 Blood Pressure 94/65 Blood Pressure [Ri ght Upper Arm] Pulse Oximetry 97 96 Oxygen Delivery Me thod 01/29/25 23:15 01/29/25 23:17 01/29/25 23:30 Temperature Pulse Rate 138 H 107 H 126 H Pulse Rate [Pulse Oximeter] Respiratory Rate 8 L 9 L 7 L Blood Pressure 116/68 Blood Pressure [Ri ght Upper Arm] Pulse Oximetry 95 94 94 Oxygen Delivery Me thod 01/29/25 23:32 01/29/25 23:35 01/29/25 23:45 Temperature Pulse Rate 128 H 127 H Pulse Rate [Pulse Oximeter] Respiratory Rate 11 L 14 12 Blood Pressure 122/86 127/104 H Blood Pressure [Ri ght Upper Arm] Pulse Oximetry 95 95 Oxygen Delivery Me thod <Apolinar Paula, DO - Last Filed: 01/31/25 11:06> Vital Signs, click to edit/add: Vital Signs - 24 hr 01/29/25 21:54 01/29/25 21:55 01/29/25 21:55 Temperature 98.9 F Pulse Rate 130 H 111 H Pulse Rate [Pulse Oximeter] 149 H Respiratory Rate 18 Blood Pressure 100/87 Blood Pressure [Ri ght Upper Arm] 100/87 Pulse Oximetry 95 96 95 Oxygen Delivery Me thod Room Air 01/29/25 22:00 01/29/25 22:13 01/29/25 22:15 Temperature Pulse Rate 117 H 141 H 127 H Pulse Rate [Pulse Oximeter] Respiratory Rate 25 H Blood Pressure 102/90 H Blood Pressure [Ri ght Upper Arm] Pulse Oximetry 95 94 94 Oxygen Delivery Me thod 01/29/25 22:19 01/29/25 22:30 01/29/25 22:32 Temperature Pulse Rate 137 H 129 H 133 H Pulse Rate [Pulse Oximeter] Respiratory Rate 12 7 L Blood Pressure 95/76 117/84 Blood Pressure [Ri ght Upper Arm] Pulse Oximetry 94 96 94 Oxygen Delivery Me thod 01/29/25 22:45 01/29/25 22:47 01/29/25 23:07 Temperature Pulse Rate 117 H 119 H Pulse Rate [Pulse Oximeter] Respiratory Rate 9 L 23 Blood Pressure 94/65 Blood Pressure [Ri ght Upper Arm] Pulse Oximetry 97 96 Oxygen Delivery Me thod 01/29/25 23:15 01/29/25 23:17 01/29/25 23:30 Temperature Pulse Rate 138 H 107 H 126 H Pulse Rate [Pulse Oximeter] Respiratory Rate 8 L 9 L 7 L Blood Pressure 116/68 Blood Pressure [Ri ght Upper Arm] Pulse Oximetry 95 94 94 Oxygen Delivery Me thod 01/29/25 23:32 01/29/25 23:35 01/29/25 23:45 Temperature Pulse Rate 128 H 127 H Pulse Rate [Pulse Oximeter] Respiratory Rate 11 L 14 12 Blood Pressure 122/86 127/104 H Blood Pressure [Ri ght Upper Arm] Pulse Oximetry 95 95 Oxygen Delivery Me thod <Ming Moyer MD - Last Filed: 01/30/25 01:33> Course Course ED Course: 12:55 a.m. patient accepted in sign-out from Dr. Paula. Briefly, 79-year-old with history atrial fibrillation, Lewy body dementia, Parkinson's disease who comes in with increased weakness and little increased confusion. He is found to be in atrial fibrillation with rapid ventricular response. Given broad differential for weakness and altered mentation, labs were done with reassuring CBC, INR 2.74, normal basic panel, normal hepatic panel, urinalysis not consistent with infection, negative respiratory panel. CT scan of the head and chest x-ray negative for acute findings. Patient is given a couple of doses metoprolol with improvement in heart rate down to 110s but still creeping back up into the 130s. After discussion, Dr. Wallace I decided to attempt cardioversion, patient's INR has been therapeutic and review of chart shows he has paroxysmal atrial fibrillation. Patient had to sink shocks 200 joules which were unsuccessful in restoring sinus rhythm. Patient tolerated sedation well. Care was discussed with Dr. Vale at [facility] who recommends starting metoprolol tartrate 25 mg q6 hours, if patient does not convert and strategies change in rate control, consider discontinuing Tikosyn. Can contact Cardiology in the morning for further recommendations. Procedure: sedation for cardioversion. Risks and benefits discussed with daughter, written consent was obtained. I reviewed patient's chart prior to cardioversion, heart is tachycardic and regular, lungs are clear and patient is at his mental baseline. Oxygen by nasal cannula was applied along with end-tidal CO2 detector, oxygen monitor, airway supplies immediately available. I administered etomidate 8 mg IV. Please see Dr. Paula's note regarding procedure details. Patient recovered from sedation without difficulty, lowest oxygen saturation was 91% and I did apply jaw thrust due to sonorous respirations. <Ming Moyer MD - Last Filed: 01/30/25 01:33> Reevaluation(s) Time of Reevaluation #1: 01:20 <Ming Moyer MD - Last Filed: 01/30/25 01:33> Reevaluation #1: Care discussed with Dr. Higgins for admission. Repeat troponin 0.08. <Ming Moyer MD - Last Filed: 01/30/25 01:33> Vital Signs Vital signs: Initial Vital Signs Pulse Rate 130 H 01/29/25 21:54 Blood Pressure 100/87 01/29/25 21:54 Blood Pressure Mean 91 01/29/25 21:54 Pulse Oximetry 95 01/29/25 21:54 Vital Signs Pulse Rate 130 H 01/29/25 21:54 Blood Pressure 100/87 01/29/25 21:54 Pulse Oximetry 95 01/29/25 21:54 Temperature 97.7 F 01/31/25 10:58 Pulse Rate 133 H 01/31/25 10:58 Respiratory Rate 16 01/31/25 10:58 Blood Pressure 122/91 H 01/31/25 10:58 Pulse Oximetry 94 01/31/25 10:58 Oxygen Delivery Method Room Air 01/31/25 10:58 <Apolinar Paula DO - Last Filed: 01/31/25 11:06> Initial Vital Signs Pulse Rate 130 H 01/29/25 21:54 Blood Pressure 100/87 01/29/25 21:54 Blood Pressure Mean 91 01/29/25 21:54 Pulse Oximetry 95 01/29/25 21:54 Vital Signs Pulse Rate 130 H 01/29/25 21:54 Blood Pressure 100/87 01/29/25 21:54 Pulse Oximetry 95 01/29/25 21:54 Temperature 97.7 F 01/31/25 10:58 Pulse Rate 133 H 01/31/25 10:58 Respiratory Rate 16 01/31/25 10:58 Blood Pressure 122/91 H 01/31/25 10:58 Pulse Oximetry 94 01/31/25 10:58 Oxygen Delivery Method Room Air 01/31/25 10:58 <Ming Moyer MD - Last Filed: 01/30/25 01:33> Medications Administered Medications: Generic Name Dose Route Start Last Admin Trade Name Freq PRN Reason Stop Dose Admin Acetaminophen 650 - 975 mg 01/30/25 17:25 01/31/25 04:22 Acetaminophen 325 Mg Tablet PO 650 mg Q8H PRN Administration Carbidopa/Levodopa 2.5 tab 01/30/25 09:00 01/31/25 09:33 Carbidopa-Levodopa 10-100 Tab Tablet PO 2.5 tab TID NNAMDI Administration Doxycycline Hyclate 100 mg 01/31/25 09:00 01/31/25 09:34 Doxycycline Hyclate 100 Mg PO 100 mg BID NNAMDI Administration Fexofenadine HCl 180 mg 01/31/25 09:00 01/31/25 09:34 Fexofenadine 180 Mg Tablet PO 180 mg DAILY NNAMDI Administration Ceftriaxone Sodium 1 gm/ 100 mls @ 200 mls/hr 01/30/25 18:15 01/31/25 10:38 Sodium Chloride IVPB Infused Q24H NNAMDI Infusion Sodium Chloride 1,000 mls @ 100 mls/hr 01/31/25 08:06 01/31/25 09:27 0.9 % Sodium Chloride 1000 Ml IV 100 mls/hr .Q10H NNAMDI Administration Memantine 10 mg 01/30/25 09:00 01/31/25 09:34 Memantine Hcl 10 Mg Tablet PO 10 mg BID NNAMDI Administration Metoprolol Tartrate 5 mg 01/30/25 03:13 01/31/25 06:44 Metoprolol Tartrate 1 Mg/Ml Inj IVP 5 mg Q6H PRN Administration HR >120 Dofetilide 250 Mcg 0 mcg 01/31/25 09:00 01/31/25 09:23 Capsule PO 250 mcg BID NNAMDI Administration Sodium Chloride 5 ml 01/30/25 03:11 01/30/25 18:50 Sodium Chloride 0.9 % (Flush) 10 Ml Syringe IVF 5 ml .FLUSH PRN Administration Sodium Chloride 5 ml 01/30/25 09:00 01/31/25 09:28 Sodium Chloride 0.9 % (Flush) 10 Ml Syringe IVF 5 ml BID NNAMDI Administration Discontinued Medications Generic Name Dose Route Start Last Admin Trade Name Freq PRN Reason Stop Dose Admin Etomidate 8 mg 01/30/25 00:06 01/30/25 00:27 Etomidate 2 Mg/Ml Inj IVP 01/30/25 00:07 8 mg ONCE ONE Administration Sodium Chloride 1,000 mls @ 1,000 mls/hr 01/29/25 22:00 01/29/25 23:13 0.9 % Sodium Chloride 1000 Ml IV 01/29/25 22:59 Infused .Q1H NNAMDI Infusion Lactated Ringer's 1,000 mls @ 1,000 mls/hr 01/29/25 22:48 01/30/25 00:15 Lactated Ringers 1000 Ml IV 01/29/25 23:47 Infused .Q1H ONE Infusion Azithromycin 500 mg/ Sodium 255 mls @ 255 mls/hr 01/30/25 10:00 01/30/25 14:57 Chloride IVPB 01/30/25 10:59 Infused ONCE ONE Infusion Sodium Chloride 1,000 mls @ 100 mls/hr 01/30/25 18:15 01/30/25 18:50 0.9 % Sodium Chloride 1000 Ml IV 01/31/25 04:14 100 mls/hr .Q10H NNAMDI Administration Sodium Chloride 500 mls @ 500 mls/hr 01/31/25 08:06 01/31/25 10:38 0.9 % Sodium Chloride 500 Ml IV 01/31/25 09:05 Infused .Q1H NNAMDI Infusion Vancomycin/PEG/NADA/Lysine/Water 1.5 gm in 300 mls @ 200 mls/hr 01/31/25 08:30 01/31/25 09:26 Vancomycin 1.5 Gm/300 Ml IVPB 01/31/25 09:59 200 mls/hr ONCE ONE Administration Protocol Metoprolol Tartrate 5 mg 01/29/25 23:28 01/29/25 23:34 Metoprolol Tartrate 1 Mg/Ml Inj IVP 01/29/25 23:29 5 mg ONCE ONE Administration Metoprolol Tartrate 5 mg 01/29/25 23:42 01/29/25 23:46 Metoprolol Tartrate 1 Mg/Ml Inj IVP 01/29/25 23:43 5 mg ONCE ONE Administration Metoprolol Tartrate 25 mg 01/30/25 01:02 01/30/25 01:27 Metoprolol Tartrate 25 Mg Tablet PO 01/30/25 01:03 25 mg ONCE ONE Administration Metoprolol Tartrate 5 mg 01/31/25 08:05 01/31/25 08:17 Metoprolol Tartrate 1 Mg/Ml Inj IVP 01/31/25 08:06 5 mg ONCE ONE Administration Warfarin Sodium 5 mg 01/30/25 17:00 01/30/25 16:51 Warfarin 5 Mg Tablet PO 5 mg 1700 NNAMDI Administration <Apolinar P [place], DO - Last Filed: 01/31/25 11:06> Generic Name Dose Route Start Last Admin Trade Name Jose PRN Reason Stop Dose Admin Acetaminophen 650 - 975 mg 01/30/25 17:25 01/31/25 04:22 Acetaminophen 325 Mg Tablet PO 650 mg Q8H PRN Administration Carbidopa/Levodopa 2.5 tab 01/30/25 09:00 01/31/25 09:33 Carbidopa-Levodopa 10-100 Tab Tablet PO 2.5 tab TID NNMADI Administration Doxycycline Hyclate 100 mg 01/31/25 09:00 01/31/25 09:34 Doxycycline Hyclate 100 Mg PO 100 mg BID NNAMDI Administration Fexofenadine HCl 180 mg 01/31/25 09:00 01/31/25 09:34 Fexofenadine 180 Mg Tablet PO 180 mg DAILY NNAMDI Administration Ceftriaxone Sodium 1 gm/ 100 mls @ 200 mls/hr 01/30/25 18:15 01/31/25 10:38 Sodium Chloride IVPB Infused Q24H NNAMDI Infusion Sodium Chloride 1,000 mls @ 100 mls/hr 01/31/25 08:06 01/31/25 09:27 0.9 % Sodium Chloride 1000 Ml IV 100 mls/hr .Q10H NNAMDI Administration Memantine 10 mg 01/30/25 09:00 01/31/25 09:34 Memantine Hcl 10 Mg Tablet PO 10 mg BID NNAMDI Administration Metoprolol Tartrate 5 mg 01/30/25 03:13 01/31/25 06:44 Metoprolol Tartrate 1 Mg/Ml Inj IVP 5 mg Q6H PRN Administration HR >120 Dofetilide 250 Mcg 0 mcg 01/31/25 09:00 01/31/25 09:23 Capsule PO 250 mcg BID NNAMDI Administration Sodium Chloride 5 ml 01/30/25 03:11 01/30/25 18:50 Sodium Chloride 0.9 % (Flush) 10 Ml Syringe IVF 5 ml .FLUSH PRN Administration Sodium Chloride 5 ml 01/30/25 09:00 01/31/25 09:28 Sodium Chloride 0.9 % (Flush) 10 Ml Syringe IVF 5 ml BID NNAMDI Administration Discontinued Medications Generic Name Dose Route Start Last Admin Trade Name Jose PRN Reason Stop Dose Admin Etomidate 8 mg 01/30/25 00:06 01/30/25 00:27 Etomidate 2 Mg/Ml Inj IVP 01/30/25 00:07 8 mg ONCE ONE Administration Sodium Chloride 1,000 mls @ 1,000 mls/hr 01/29/25 22:00 01/29/25 23:13 0.9 % Sodium Chloride 1000 Ml IV 01/29/25 22:59 Infused .Q1H NNAMDI Infusion Lactated Ringer's 1,000 mls @ 1,000 mls/hr 01/29/25 22:48 01/30/25 00:15 Lactated Ringers 1000 Ml IV 01/29/25 23:47 Infused .Q1H ONE Infusion Azithromycin 500 mg/ Sodium 255 mls @ 255 mls/hr 01/30/25 10:00 01/30/25 14:57 Chloride IVPB 01/30/25 10:59 Infused ONCE ONE Infusion Sodium Chloride 1,000 mls @ 100 mls/hr 01/30/25 18:15 01/30/25 18:50 0.9 % Sodium Chloride 1000 Ml IV 01/31/25 04:14 100 mls/hr .Q10H NNAMDI Administration Sodium Chloride 500 mls @ 500 mls/hr 01/31/25 08:06 01/31/25 10:38 0.9 % Sodium Chloride 500 Ml IV 01/31/25 09:05 Infused .Q1H NNAMDI Infusion Vancomycin/PEG/NADA/Lysine/Water 1.5 gm in 300 mls @ 200 mls/hr 01/31/25 08:30 01/31/25 09:26 Vancomycin 1.5 Gm/300 Ml IVPB 01/31/25 09:59 200 mls/hr ONCE ONE Administration Protocol Metoprolol Tartrate 5 mg 01/29/25 23:28 01/29/25 23:34 Metoprolol Tartrate 1 Mg/Ml Inj IVP 01/29/25 23:29 5 mg ONCE ONE Administration Metoprolol Tartrate 5 mg 01/29/25 23:42 01/29/25 23:46 Metoprolol Tartrate 1 Mg/Ml Inj IVP 01/29/25 23:43 5 mg ONCE ONE Administration Metoprolol Tartrate 25 mg 01/30/25 01:02 01/30/25 01:27 Metoprolol Tartrate 25 Mg Tablet PO 01/30/25 01:03 25 mg ONCE ONE Administration Metoprolol Tartrate 5 mg 01/31/25 08:05 01/31/25 08:17 Metoprolol Tartrate 1 Mg/Ml Inj IVP 01/31/25 08:06 5 mg ONCE ONE Administration Warfarin Sodium 5 mg 01/30/25 17:00 01/30/25 16:51 Warfarin 5 Mg Tablet PO 5 mg 1700 NNAMDI Administration <Ming Moyer MD - Last Filed: 01/30/25 01:33> MDM - Altered Mental Status MDM Narrative Medical decision making narrative: Patient is an 79-year-old male presenting to the emergency department for altered mental status. The differential diagnosis of altered mental status is broad and includes infection, electrolyte abnormalities, ACS, dehydration, intercranial abnormality, hypoxia, metabolic causes, hypertensive encephalopathy, toxins, overdose/withdrawal, acute psychiatric illness etc. there was some report that he had some fall smelling urine and he could possibly have an infection. Will do a septic workup. He is also in AFib with RVR. Does have a known history of AFib on warfarin. Will check INR. Before giving him medication to bring down his heart rate will try doing fluids to see if part of the issue was dehydration and sepsis. Will start with 1 L of fluids. And give more as needed. CT scan of his head done for possible altered mental status. Lab work returned showing no acute concerning abnormalities other than his elevated troponin 0.07. This is likely related to his AFib. CT scan of the head shows possible otitis media and possible mastoiditis. There is no swelling behind the ear and there is no tenderness to the mastoid process. Did look in his ears there is of the bit of fluid behind the right tympanic membrane. Based on the description from his daughter and which she has same right now I do not believe the patient was ever actually altered. Description from his care facility sounds like he was having hallucination based on info provided by the daughter. Do not believe antibiotics are necessary at this time. He is showing no signs of sepsis. He currently is a full code other than DNI. They have spoke about changes code status but then his had a stroke and she wants to wait changes until she is out of rehab. There is no signs of sepsis at this time. Fluids did improve his heart rate to about the 140s and his blood pressure also improved quite a bit. He is still in AFib. Does have paroxysmal AFib. Previous EKG shows he is typically in normal sinus rhythm. Takes dofetilide for his AFib and is on Coumadin. INR is 2.74. Wounds tried to metoprolol to see if they can control his rate. It did bring his rate to about the 110s to 130s range. Occasionally drops into the 100s. He continues to be AFib with RVR the also he will try cardioversion with etomidate. My colleague assisted with the sedation. Etomidate used. It was unsuccessful. Will consult Cardiology for their recommendations. <Apolinar Paula DO - Last Filed: 01/31/25 11:06> Lab Data Labs: Lab Results 01/29/25 01/29/25 01/29/25 Range/Units 22:01 22:25 22:30 WBC 5.10 (4.50-11.00) K/uL RBC 5.17 (4.30-5.90) m/uL Hgb 15.3 (13.5-17.5) gm/dL Hct 46.9 (37.0-53.0) % MCV 91 (80-100) fL MCH 30 (26-34) pg MCHC 33 (32-36) gm/dL RDW Coeff of Cristofer 13.0 (11.5-15.5) % Plt Count 133 L (140-440) K/uL Neut % (Auto) 77.6 H (42.0-72.0) % Lymph % (Auto) 6.3 L (20-44) % [place] % (Auto) 13.7 H (0.0-11.0) % Eos % (Auto) 0.6 (0.0-7.0) % Baso % (Auto) 0.2 (0.0-3.0) % Neut # (Auto) 4.00 (1.7-7.0) K/uL Lymph # (Auto) 0.30 L (0.90-2.90) K/uL [place] # (Auto) 0.70 (0.00-0.90) K/UL Eos # (Auto) 0.03 (0.00-0.50) K/uL Baso # (Auto) 0.01 (0.00-0.30) K/uL Abs Immat Gran (auto) 0.08 (0.00-0.30) K/uL Imm/Tot Granulo (auto) 1.6 % INR 2.74 H (0.91-1.10) Sodium 135 (135-149) mmol/L Potassium 4.6 (3.6-5.1) mmol/L Chloride 101 (96-114) mmol/L Carbon Dioxide 28 (20-32) mmol/L Anion Gap 6 L (7-15) mEq/L BUN 18 (7-30) mg/dL Creatinine 1.1 (0.5-1.5) mg/dL Estimated Creat Clear 60.14 Estimated GFR 68 ml/min Glucose 115 (60-115) mg/dL Lactate 1.4 (0.5-1.9) mmol/L Calcium 8.6 (8.4-10.6) mg/dL Magnesium 2.1 (1.5-2.6) mg/dL Total Bilirubin 1.3 (0.1-1.5) mg/dL AST 32 (12-35) U/L ALT 8 (4-50) U/L Alkaline Phosphatase 71 (40-150) U/L Troponin I 0.07 H* (0.01-0.04) ng/mL Total Protein 7.1 (6.0-8.3) g/dL Albumin 4.0 (3.3-5.0) g/dL TSH 1.200 (0.270-4.20) uIU/mL Urine Color (Yellow) Urine Appearance (Clear) Urine pH (5.0-8.5) Ur Specific [place] (1.000-1.030) Urine Protein (Negative) Urine Glucose (UA) (Negative) Urine Ketones (Negative) Urine Blood (Negative) Urine Nitrite (Negative) Urine Bilirubin (Negative) Urine Urobilinogen (0.2-1.0) Ur Leukocyte Esterase (Negative) Urine RBC (0-2) Urine WBC (0-5) Ur Squamous Epith Cells (None-Few) Amorphous Sediment (None) Urine Bacteria (None) Urine Mucus (None) SARS-CoV-2 (PCR) Negative SARS-CoV-2 (Negative) Influenza Type A (PCR) Negative PCR FLU A (Negative) Influenza Type B (PCR) Negative PCR FLU B (Negative) RSV (PCR) Negative PCR RSV (Negative) POC Troponin I (0.01-0.04) ng/ml 01/29/25 01/30/25 Range/Units 22:50 00:15 WBC (4.50-11.00) K/uL RBC (4.30-5.90) m/uL Hgb (13.5-17.5) gm/dL Hct (37.0-53.0) % MCV (80-100) fL MCH (26-34) pg MCHC (32-36) gm/dL RDW Coeff of Cristofer (11.5-15.5) % Plt Count (140-440) K/uL Neut % (Auto) (42.0-72.0) % Lymph % (Auto) (20-44) % [place] % (Auto) (0.0-11.0) % Eos % (Auto) (0.0-7.0) % Baso % (Auto) (0.0-3.0) % Neut # (Auto) (1.7-7.0) K/uL Lymph # (Auto) (0.90-2.90) K/uL [place] # (Auto) (0.00-0.90) K/UL Eos # (Auto) (0.00-0.50) K/uL Baso # (Auto) (0.00-0.30) K/uL Abs Immat Gran (auto) (0.00-0.30) K/uL Imm/Tot Granulo (auto) % INR (0.91-1.10) Sodium (135-149) mmol/L Potassium (3.6-5.1) mmol/L Chloride (96-114) mmol/L Carbon Dioxide (20-32) mmol/L Anion Gap (7-15) mEq/L BUN (7-30) mg/dL Creatinine (0.5-1.5) mg/dL Estimated Creat Clear Estimated GFR ml/min Glucose (60-115) mg/dL Lactate (0.5-1.9) mmol/L Calcium (8.4-10.6) mg/dL Magnesium (1.5-2.6) mg/dL Total Bilirubin (0.1-1.5) mg/dL AST (12-35) U/L ALT (4-50) U/L Alkaline Phosphatase (40-150) U/L Troponin I (0.01-0.04) ng/mL Total Protein (6.0-8.3) g/dL Albumin (3.3-5.0) g/dL TSH (0.270-4.20) uIU/mL Urine Color Yellow (Yellow) Urine Appearance Clear (Clear) Urine pH 6.0 (5.0-8.5) Ur Specific [place] 1.020 (1.000-1.030) Urine Protein 1+ A (Negative) Urine Glucose (UA) Negative (Negative) Urine Ketones 1+ A (Negative) Urine Blood Trace-lysed A (Negative) Urine Nitrite Negative (Negative) Urine Bilirubin Negative (Negative) Urine Urobilinogen 1.0 (0.2-1.0) Ur Leukocyte Esterase Negative (Negative) Urine RBC 0-2 (0-2) Urine WBC 2-5 (0-5) Ur Squamous Epith Cells Few (None-Few) Amorphous Sediment Few A (None) Urine Bacteria Moderate A (None) Urine Mucus Moderate A (None) SARS-CoV-2 (PCR) (Negative) Influenza Type A (PCR) (Negative) Influenza Type B (PCR) (Negative) RSV (PCR) (Negative) POC Troponin I 0.08 H (0.01-0.04) ng/ml <Apolinar Paula, DO - Last Filed: 01/31/25 11:06> Lab Results 01/29/25 01/29/25 01/29/25 Range/Units 22:01 22:25 22:30 WBC 5.10 (4.50-11.00) K/uL RBC 5.17 (4.30-5.90) m/uL Hgb 15.3 (13.5-17.5) gm/dL Hct 46.9 (37.0-53.0) % MCV 91 (80-100) fL MCH 30 (26-34) pg MCHC 33 (32-36) gm/dL RDW Coeff of Cristofer 13.0 (11.5-15.5) % Plt Count 133 L (140-440) K/uL Neut % (Auto) 77.6 H (42.0-72.0) % Lymph % (Auto) 6.3 L (20-44) % [place] % (Auto) 13.7 H (0.0-11.0) % Eos % (Auto) 0.6 (0.0-7.0) % Baso % (Auto) 0.2 (0.0-3.0) % Neut # (Auto) 4.00 (1.7-7.0) K/uL Lymph # (Auto) 0.30 L (0.90-2.90) K/uL [place] # (Auto) 0.70 (0.00-0.90) K/UL Eos # (Auto) 0.03 (0.00-0.50) K/uL Baso # (Auto) 0.01 (0.00-0.30) K/uL Abs Immat Gran (auto) 0.08 (0.00-0.30) K/uL Imm/Tot Granulo (auto) 1.6 % INR 2.74 H (0.91-1.10) Sodium 135 (135-149) mmol/L Potassium 4.6 (3.6-5.1) mmol/L Chloride 101 (96-114) mmol/L Carbon Dioxide 28 (20-32) mmol/L Anion Gap 6 L (7-15) mEq/L BUN 18 (7-30) mg/dL Creatinine 1.1 (0.5-1.5) mg/dL Estimated Creat Clear 60.14 Estimated GFR 68 ml/min Glucose 115 (60-115) mg/dL Lactate 1.4 (0.5-1.9) mmol/L Calcium 8.6 (8.4-10.6) mg/dL Magnesium 2.1 (1.5-2.6) mg/dL Total Bilirubin 1.3 (0.1-1.5) mg/dL AST 32 (12-35) U/L ALT 8 (4-50) U/L Alkaline Phosphatase 71 (40-150) U/L Troponin I 0.07 H* (0.01-0.04) ng/mL Total Protein 7.1 (6.0-8.3) g/dL Albumin 4.0 (3.3-5.0) g/dL TSH 1.200 (0.270-4.20) uIU/mL Urine Color (Yellow) Urine Appearance (Clear) Urine pH (5.0-8.5) Ur Specific [place] (1.000-1.030) Urine Protein (Negative) Urine Glucose (UA) (Negative) Urine Ketones (Negative) Urine Blood (Negative) Urine Nitrite (Negative) Urine Bilirubin (Negative) Urine Urobilinogen (0.2-1.0) Ur Leukocyte Esterase (Negative) Urine RBC (0-2) Urine WBC (0-5) Ur Squamous Epith Cells (None-Few) Amorphous Sediment (None) Urine Bacteria (None) Urine Mucus (None) SARS-CoV-2 (PCR) Negative SARS-CoV-2 (Negative) Influenza Type A (PCR) Negative PCR FLU A (Negative) Influenza Type B (PCR) Negative PCR FLU B (Negative) RSV (PCR) Negative PCR RSV (Negative) POC Troponin I (0.01-0.04) ng/ml 01/29/25 01/30/25 Range/Units 22:50 00:15 WBC (4.50-11.00) K/uL RBC (4.30-5.90) m/uL Hgb (13.5-17.5) gm/dL Hct (37.0-53.0) % MCV (80-100) fL MCH (26-34) pg MCHC (32-36) gm/dL RDW Coeff of Cristofer (11.5-15.5) % Plt Count (140-440) K/uL Neut % (Auto) (42.0-72.0) % Lymph % (Auto) (20-44) % [place] % (Auto) (0.0-11.0) % Eos % (Auto) (0.0-7.0) % Baso % (Auto) (0.0-3.0) % Neut # (Auto) (1.7-7.0) K/uL Lymph # (Auto) (0.90-2.90) K/uL [place] # (Auto) (0.00-0.90) K/UL Eos # (Auto) (0.00-0.50) K/uL Baso # (Auto) (0.00-0.30) K/uL Abs Immat Gran (auto) (0.00-0.30) K/uL Imm/Tot Granulo (auto) % INR (0.91-1.10) Sodium (135-149) mmol/L Potassium (3.6-5.1) mmol/L Chloride (96-114) mmol/L Carbon Dioxide (20-32) mmol/L Anion Gap (7-15) mEq/L BUN (7-30) mg/dL Creatinine (0.5-1.5) mg/dL Estimated Creat Clear Estimated GFR ml/min Glucose (60-115) mg/dL Lactate (0.5-1.9) mmol/L Calcium (8.4-10.6) mg/dL Magnesium (1.5-2.6) mg/dL Total Bilirubin (0.1-1.5) mg/dL AST (12-35) U/L ALT (4-50) U/L Alkaline Phosphatase (40-150) U/L Troponin I (0.01-0.04) ng/mL Total Protein (6.0-8.3) g/dL Albumin (3.3-5.0) g/dL TSH (0.270-4.20) uIU/mL Urine Color Yellow (Yellow) Urine Appearance Clear (Clear) Urine pH 6.0 (5.0-8.5) Ur Specific [place] 1.020 (1.000-1.030) Urine Protein 1+ A (Negative) Urine Glucose (UA) Negative (Negative) Urine Ketones 1+ A (Negative) Urine Blood Trace-lysed A (Negative) Urine Nitrite Negative (Negative) Urine Bilirubin Negative (Negative) Urine Urobilinogen 1.0 (0.2-1.0) Ur Leukocyte Esterase Negative (Negative) Urine RBC 0-2 (0-2) Urine WBC 2-5 (0-5) Ur Squamous Epith Cells Few (None-Few) Amorphous Sediment Few A (None) Urine Bacteria Moderate A (None) Urine Mucus Moderate A (None) SARS-CoV-2 (PCR) (Negative) Influenza Type A (PCR) (Negative) Influenza Type B (PCR) (Negative) RSV (PCR) (Negative) POC Troponin I 0.08 H (0.01-0.04) ng/ml <Ming Moyer MD - Last Filed: 01/30/25 01:33> Imaging Data Chest x-ray: Attestation: I have reviewed the pertinent imaging results. <Apolinar Paula DO - Last Filed: 01/31/25 11:06> Radiologist's impression: Evaluation degraded due to significant patient rotation. Cardiomegaly and prominence of the aortic silhouette, may be exaggerated due to patient positioning but could be further evaluated with cross-sectional imaging if there is concern for acute aortic pathology. No organized consolidation appreciated. Dictated by Khanh English MD @ 01/29/2025 11:21:43 PM <Apolinar Paula DO - Last Filed: 01/31/25 11:06> ECG Data Attestation: I personally reviewed and interpreted this ECG as follows: <Apolinar Paula DO - Last Filed: 01/31/25 11:06> Prior ECG tracings: available for review <Apolinar Paula DO - Last Filed: 01/31/25 11:06> Interpretation: AFib with RVR with a rate when she 57 beats per minute, normal QRS, no obvious ST or T-wave abnormalities. Previous EKG showed normal sinus rhythm <Apolinar Paula DO - Last Filed: 01/31/25 11:06> Discharge Plan Discharge Clinical Impression: Atrial fibrillation with rapid ventricular response, Lewy body dementia without behavioral disturbance, shelter current use of anticoagulant therapy Parkinsonism Qualifiers: Parkinsonism type: unspecified Qualified Code(s): G20.C - Parkinsonism, unspecified <Apolinar Paula DO - Last Filed: 01/31/25 11:06> Patient Disposition: Admitted As Observation <Apolinar Paula DO - Last Filed: 01/31/25 11:06> Condition: Stable <Apolinar Paula DO - Last Filed: 01/31/25 11:06>
[2025-01-29 22:35] LABS: Lactate Sepsis w/Reflex* 1.4 mmol/L (0.5-1.9)
[2025-01-29 22:45] LABS: Hematocrit 46.9 % (37.0-53.0); Hemoglobin* 15.3 gm/dL (13.5-17.5); Immature Granulocytes Abs Auto 0.08 K/uL (0.00-0.30); Immature Granulocytes Pct Auto 1.6 %; Mean Corpuscular HGB Conc 33 gm/dL (32-36); Mean Corpuscular Hemoglobin 30 pg (26-34); Mean Corpuscular Volume 91 fL (80-100); RDW Coefficient of Variation % 13.0 % (11.5-15.5); Red Blood Count 5.17 m/uL (4.30-5.90); White Blood Count* 5.10 K/uL (4.50-11.00)
[2025-01-29 22:47] LABS: Lymphocytes Absolute Auto 0.30 K/uL (0.90-2.90); Slide Review Reflex No
--- NOTE | 2025-01-29 22:48 | CRLHL7_ITS ---
For Patients: As a result of the Century Cures Act, medical imaging exams and procedure reports are released immediately into your electronic medical record. You may view this report before your referring provider. If you have questions, please contact your health care provider. INDICATION: AMS, LEWY BODY DEMENTIA AND PARKINSON`S. TECHNIQUE: CT head without contrast. COMPARISON: None. FINDINGS: Brain parenchyma, CSF spaces, and extra-axial spaces: Mild global brain parenchymal volume loss with commensurate sulcal and ventricular enlargement. Areas of moderate to severe hypoattenuation within the bilateral periventricular and deep white matter, consistent with chronic small vessel ischemic disease. The trevino-white differentiation is normal. No sign of mass, hemorrhage, or midline shift. No hydrocephalus. No extra-axial fluid collection. Skull base and calvarium: Small air-fluid level in the right maxillary sinus with [id number] mucosal thickening. Moderate bilateral ethmoid air cell mucosal thickening. Right mastoid effusion. Fluid within the right middle ear. The visualized orbits are grossly unremarkable. No skull fracture. IMPRESSION: 1. No evidence of an acute intracranial abnormality. 2. Brain parenchyma findings consistent with moderate to severe chronic small vessel ischemic disease on a background of age-related involutional change. 3. Right mastoid effusion with fluid within the right middle ear. Findings could represent otitis media with reactive mastoid effusion. Early otomastoiditis could also appear similar. 4. Moderate bilateral ethmoid air cell mucosal thickening and small air-fluid level within the right maxillary sinus, may represent acute sinusitis. Please note that all CT scans at this facility use dose modulation, iterative reconstruction, and/or weight-based dosing when appropriate to reduce radiation dose to as low as reasonably achievable. Dictated by Gerson Thornton MD @ 01/29/2025 11:45:06 PM (Electronically Signed)
[2025-01-29 22:55] LABS: Albumin* 4.0 g/dL (3.3-5.0); Chloride* 101 mmol/L (96-114)
[2025-01-29 22:56] LABS: Potassium* 4.6 mmol/L (3.6-5.1); Sodium* 135 mmol/L (135-149)
[2025-01-29 22:58] LABS: Alanine Aminotransferase* 8 U/L (4-50); Alkaline Phosphatase* 71 U/L (40-150); Anion Gap 6 mEq/L (7-15); Aspartate Amino Transferase* 32 U/L (12-35); Bilirubin Total* 1.3 mg/dL (0.1-1.5); Blood Urea Nitrogen* 18 mg/dL (7-30); Carbon Dioxide* 28 mmol/L (20-32); Creatinine* 1.1 mg/dL (0.5-1.5); Est. Creatinine Clearance* 60.14; Estimated Glomerular Filt Rate 68 ml/min; Total Protein* 7.1 g/dL (6.0-8.3)
[2025-01-29 22:59] LABS: Calcium* 8.6 mg/dL (8.4-10.6); Glucose* 115 mg/dL (60-115)
[2025-01-29 23:02] LABS: Appearance Urine Clear (Clear)
[2025-01-29 23:02] LABS: PCR FLU A Negative PCR FLU A (Negative); PCR FLU B Negative PCR FLU B (Negative); PCR RSV Negative PCR RSV (Negative); SARS PCR* Negative SARS-CoV-2 (Negative)
[2025-01-29] MEDS: LACTATED RINGERS 1000 ML 1,000 ML IV (23:14)
[2025-01-29 23:30] LABS: INR 2.74 (0.91-1.10); Prothrombin Time 30.3 Seconds
[2025-01-29] MEDS: METOPROLOL TARTRATE 1 MG/ML inj 5 MG IVP ×2 (23:34→23:46)
[2025-01-30] VITALS (30 sets, daily range): BP systolic 81–132; BP diastolic 67–106; PULSE 67–149; RESP 5–22; TEMP 36.8–39.1; O2SAT 86–99
[2025-01-30] MEDS: ETOMIDATE 2 MG/ML inj 8 MG IVP (00:27)
[2025-01-30 01:25] LABS: Troponin, Point-of-Care* 0.08 ng/ml (0.01-0.04)
[2025-01-30] MEDS: METOPROLOL TARTRATE 25 MG TABLET PO (01:27)
[2025-01-30] MEDS: METOPROLOL TARTRATE 1 MG/ML inj 5 MG IVP (03:59)
--- NOTE | 2025-01-30 05:46 | W.PM.TELEH&P ---
Telehealth- H&P: HPI History of Present Illness Date Seen: 01/30/25 Chief complaint: mental status Narrative: Rohan Carroll is seen as an Interactive Telehealth visit. Rohan Carroll is a 79 year old male With known past medical history significant for A-fib currently on Coumadin and Tikosyn, Parkinson disorder, Lewy body dementia, TEE who was brought to the emergency department for change in mental status. Patient lives at assisted living. Staff noticed him to be staring in space and noticed a change in mental status. He has been having on and off confusion. In the emergency department he was noted to be in A-fib with RVR. He was initially treated with metoprolol IV pushes and then 2 attempts for cardioversion were unsuccessful. Cardiology was consulted by ER provider and they recommended local admission with trial of metoprolol 25 mg every 6 hours and if no improvement they will consider more rate control strategy then rhythm control. Patient at the time of the exam was having heart rate that was [id number] from 100s to 120s. Patient during the exam is awake, is following basic commands unable to provide detailed history as to why he came to the hospital. He is denying chest pain, shortness of breath. Most recent vital signs show heart rate 103, blood pressure 120/96. Temperature 98.4. CBC is unremarkable except for thrombocytopenia with platelets of 133. INR is therapeutic at 2.74, BMP is unremarkable, troponin 0.07, UA showed 1+ ketones, 2-5 WBC, moderate urine bacteria, urine WBC 2-5. Nasal swab negative for SARS-CoV-2, influenza A, B, RSV. Head CT showed no evidence of acute intracranial abnormality. Brain parenchymal findings consistent with moderate to severe chronic small vessel ischemic disease on a background of age-related changes. Right mastoid effusion with fluid within the right middle ear. Could be otitis media with reactive mastoid effusion. Early otomastoiditis could also appear similar. Other evidence of acute sinusitis. Chest x-ray showed cardiomegaly and prominence of the aortic silhouette may be exaggerated due to patient's positioning. [facility] Medical History Rotator cuff tear, right (~04/2024) ?M75.101 - Unspecified rotator cuff tear or rupture of right shoulder, not specified as traumatic (ICD-10) Choking episode (06/2024) ?R09.89 - Other specified symptoms and signs involving the circulatory and respiratory systems (ICD-10) Frailty syndrome in geriatric patient ?R54 - Age-related physical debility (ICD-10) History of syncope ?Z87.898 - Personal history of other specified conditions (ICD-10) Right knee pain ?M25.561 - Pain in right knee (ICD-10) Closed fracture of left proximal humerus ?S42.202A - Unspecified fracture of upper end of left humerus, initial encounter for closed fracture (ICD-10) POLST (Physician Orders for Life-Sustaining Treatment) ?Z78.9 - Other specified health status (ICD-10) Spinal stenosis of lumbar region ?M48.061 - Spinal stenosis, lumbar region without neurogenic claudication (ICD-10) Acquired enlargement of sinus of Valsalva ?I71.9 - Aortic aneurysm of unspecified site, without rupture (ICD-10) Sleep apnea treated with nocturnal BiPAP ?G47.30 - Sleep apnea, unspecified (ICD-10) Health care directive on file ?Z78.9 - Other specified health status (ICD-10) Prostate cancer (2017) ?C61 - Malignant neoplasm of prostate (ICD-10) Vascular dementia (2017) ?F01.50 - Vascular dementia without behavioral disturbance (ICD-10) Central sleep apnea (2017) ?G47.31 - Primary central sleep apnea (ICD-10) Primary hypertension ?I10 - Essential (primary) hypertension (ICD-10) manager long term care current use of anticoagulant therapy ?Z79.01 - manager long term care (current) use of anticoagulants (ICD-10) History of vitamin D deficiency ?Z86.39 - Personal history of other endocrine, nutritional and metabolic disease (ICD-10) History of malignant neoplasm of prostate (2018) ?Z85.46 - Personal history of malignant neoplasm of prostate (ICD-10) Esophageal dysmotility ?K22.4 - Dyskinesia of esophagus (ICD-10) Atrial fibrillation and flutter (2017) ?I48.91 - Unspecified atrial fibrillation (ICD-10) ?I48.92 - Unspecified atrial flutter (ICD-10) Ascending aortic aneurysm (2016) ?I71.2 - Thoracic aortic aneurysm, without rupture (ICD-10) Surgical History History of external beam radiation therapy (~2016) ?Z92.3 - Personal history of irradiation (ICD-10) History of vasectomy ?Z98.52 - Vasectomy status (ICD-10) History of surgical removal of ganglion cyst ?Z98.890 - Other specified postprocedural states (ICD-10) History of colonoscopy (02/27/20) ?Z98.890 - Other specified postprocedural states (ICD-10) History of cataract extraction (2018) ?Z98.49 - Cataract extraction status, unspecified eye (ICD-10) Family History Father Oral cancer Maternal Grandfather Stomach cancer Mother Dementia, Onset Age: 70 Paternal Grandfather Diabetes Social History Narrative: -[place], 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/ [employer], 2 children, lives in independent living non smoker, quit 1978, 10 pack years alcohol 4-5 small glasses of wine / week exercise 3- 4/ week, walks with walker, 2 exercise classes What is your current living situation?: I presently have a place to live Problems where you live: no known problems Problems where you live details: na In the past 12 months, utilities in danger of being shut off: no In past 12 months, lack of transportation kept you from medical appts, meetings, work, or getting things needed for daily living: no In the past 12 mos, have been you worried that your food would run out before you had money to buy more?: never true In the past 12 mos, the food you bought just didn't last and you didn't have money to buy more?: never true Highest level of school completed/degree received: Master's degree Smoking Status: Former smoker How often do you have a drink containing alcohol: never AUDIT-C Alcohol total score: 0 Non-prescribed substance use: denies use Caffeine: No How often does anyone, including family, friends and others, physically hurt you: never How often does anyone, including family, friends and others, insult or talk down to you: never How often does anyone, including family, friends and others, threaten you with harm: never How often does anyone, including family, friends and others, scream or curse at you: never Meds Home Medications and Allergies Home Medications ?Medication ?Instructions ?Recorded ?Confirmed ?Type dofetilide 250 mcg capsule 250 mcg PO BID 01/21/22 01/29/25 History carbidopa 10 mg-levodopa 100 mg 2.5 tab PO TID 09/14/23 01/29/25 History tablet (Sinemet) polyethylene glycol 3350 17 17 g PO BID #510 grams 06/28/24 09/19/24 Rx gram/dose oral powder (Miralax) memantine 10 mg tablet 10 mg PO BID #180 tabs 08/28/24 01/29/25 Rx fexofenadine 60 mg tablet (Yris 60 mg PO ONCE 10/20/24 01/29/25 History Allergy) warfarin 5 mg tablet 5 mg PO DAILY #90 tabs 11/30/24 01/29/25 Rx melatonin 5 mg capsule 5 mg PO QHS PRN insomnia #30 caps 12/28/24 Rx Allergies Allergy/AdvReac Type Severity Reaction Status Date / Time Penicillins Allergy Intermediate Rash Verified 01/29/25 23:09 Sulfa (Sulfonamide Allergy Rash Verified 01/29/25 23:09 Antibiotics) Exam Narrative Exam Narrative: Physical Exam GENERAL: ?vital signs reviewed, unable to provide history. HEENT: pupils are equal round and reactive to light NECK: Supple HEART: Irregularly irregular LUNGS: Clear to auscultation bilaterally with good air movement throughout ABDOMEN: Observation from nurse assisted exam, abdomen appears soft, nontender, and nondistended with Positive bowel sounds noted. EXTREMITIES: Strength and sensation is observed to be grossly within normal limits in the upper and lower extremities.? No focal strength deficit is observed. SKIN:? Observed warm and dry with color normal Const Vital Signs, click to edit/add: Vital Signs - 24 hr 01/29/25 21:54 01/29/25 21:55 01/29/25 21:55 Temperature 98.9 F Pulse Rate 130 H 111 H Pulse Rate [Pulse Oximeter] 149 H Respiratory Rate 18 Blood Pressure 100/87 Blood Pressure [Left Arm] Blood Pressure [Right Upper Arm] 100/87 Pulse Oximetry 95 96 95 Oxygen Delivery Method Room Air 01/29/25 22:00 01/29/25 22:13 01/29/25 22:15 Temperature Pulse Rate 117 H 141 H 127 H Pulse Rate [Pulse Oximeter] Respiratory Rate 25 H Blood Pressure 102/90 H Blood Pressure [Left Arm] Blood Pressure [Right Upper Arm] Pulse Oximetry 95 94 94 Oxygen Delivery Method 01/29/25 22:19 01/29/25 22:30 01/29/25 22:32 Temperature Pulse Rate 137 H 129 H 133 H Pulse Rate [Pulse Oximeter] Respiratory Rate 12 7 L Blood Pressure 95/76 117/84 Blood Pressure [Left Arm] Blood Pressure [Right Upper Arm] Pulse Oximetry 94 96 94 Oxygen Delivery Method 01/29/25 22:45 01/29/25 22:47 01/29/25 23:07 Temperature Pulse Rate 117 H 119 H Pulse Rate [Pulse Oximeter] Respiratory Rate 9 L 23 Blood Pressure 94/65 Blood Pressure [Left Arm] Blood Pressure [Right Upper Arm] Pulse Oximetry 97 96 Oxygen Delivery Method 01/29/25 23:15 01/29/25 23:17 01/29/25 23:30 Temperature Pulse Rate 138 H 107 H 126 H Pulse Rate [Pulse Oximeter] Respiratory Rate 8 L 9 L 7 L Blood Pressure 116/68 Blood Pressure [Left Arm] Blood Pressure [Right Upper Arm] Pulse Oximetry 95 94 94 Oxygen Delivery Method 01/29/25 23:32 01/29/25 23:35 01/29/25 23:45 Temperature Pulse Rate 128 H 127 H Pulse Rate [Pulse Oximeter] Respiratory Rate 11 L 14 12 Blood Pressure 122/86 127/104 H Blood Pressure [Left Arm] Blood Pressure [Right Upper Arm] Pulse Oximetry 95 95 Oxygen Delivery Method 01/29/25 23:47 01/30/25 00:02 01/30/25 00:06 Temperature Pulse Rate 102 H Pulse Rate [Pulse Oximeter] Respiratory Rate 12 5 L Blood Pressure 147/89 H 118/101 H Blood Pressure [Left Arm] Blood Pressure [Right Upper Arm] Pulse Oximetry 95 95 Oxygen Delivery Method Room Air 01/30/25 00:06 01/30/25 00:11 01/30/25 00:17 Temperature 98.9 F 98.5 F Pulse Rate 109 H Pulse Rate [Pulse Oximeter] 149 H 122 H Respiratory Rate 12 12 5 L Blood Pressure 81/69 L Blood Pressure [Left Arm] Blood Pressure [Right Upper Arm] 105/74 112/74 Pulse Oximetry 95 95 86 L Oxygen Delivery Method Room Air Room Air 01/30/25 00:18 01/30/25 00:33 01/30/25 00:47 Temperature Pulse Rate 115 H 119 H 100 Pulse Rate [Pulse Oximeter] Respiratory Rate 18 17 21 Blood Pressure 100/69 128/97 H 88/71 L Blood Pressure [Left Arm] Blood Pressure [Right Upper Arm] Pulse Oximetry 94 96 95 Oxygen Delivery Method 01/30/25 00:51 01/30/25 00:56 01/30/25 01:01 Temperature Pulse Rate 102 H 105 H 101 H Pulse Rate [Pulse Oximeter] Respiratory Rate 22 10 L 21 Blood Pressure 101/79 107/82 117/81 Blood Pressure [Left Arm] Blood Pressure [Right Upper Arm] Pulse Oximetry 95 93 94 Oxygen Delivery Method 01/30/25 01:07 01/30/25 01:12 01/30/25 01:23 Temperature Pulse Rate 105 H 103 H 109 H Pulse Rate [Pulse Oximeter] Respiratory Rate 18 20 20 Blood Pressure 127/81 112/87 120/86 Blood Pressure [Left Arm] Blood Pressure [Right Upper Arm] Pulse Oximetry 95 95 95 Oxygen Delivery Method 01/30/25 01:27 01/30/25 01:37 01/30/25 01:42 Temperature Pulse Rate 107 H 125 H Pulse Rate [Pulse Oximeter] Respiratory Rate 13 14 11 L Blood Pressure 120/97 H 110/87 121/106 H Blood Pressure [Left Arm] Blood Pressure [Right Upper Arm] Pulse Oximetry 95 91 Oxygen Delivery Method 01/30/25 02:00 01/30/25 02:00 01/30/25 02:02 Temperature 98.4 F Pulse Rate Pulse Rate [Pulse Oximeter] 132 H Respiratory Rate 18 16 16 Blood Pressure Blood Pressure [Left Arm] 120/96 H Blood Pressure [Right Upper Arm] Pulse Oximetry 99 99 Oxygen Delivery Method Room Air Room Air 01/30/25 03:00 01/30/25 03:11 Temperature Pulse Rate 103 H Pulse Rate [Pulse Oximeter] 118 H Respiratory Rate 18 Blood Pressure Blood Pressure [Left Arm] Blood Pressure [Right Upper Arm] Pulse Oximetry 97 Oxygen Delivery Method Room Air Hospitalist - H&P: Result Labs Labs: Short CBC 01/29/25 Range/Units 22:25 WBC 5.10 (4.50-11.00) K/uL Hgb 15.3 (13.5-17.5) gm/dL Hct 46.9 (37.0-53.0) % Plt Count 133 L (140-440) K/uL BMP 01/29/25 22:25 Sodium 135 Potassium 4.6 Chloride 101 Carbon Dioxide 28 BUN 18 Creatinine 1.1 Glucose 115 Calcium 8.6 Cardiac Enzymes 01/29/25 Range/Units 22:25 Troponin I 0.07 H* (0.01-0.04) ng/mL Liver Function 01/29/25 Range/Units 22:25 Total Bilirubin 1.3 (0.1-1.5) mg/dL AST 32 (12-35) U/L ALT 8 (4-50) U/L Alkaline Phosphatase 71 (40-150) U/L Albumin 4.0 (3.3-5.0) g/dL Urine 01/29/25 Range/Units 22:50 Urine Color Yellow (Yellow) Urine Appearance Clear (Clear) Urine pH 6.0 (5.0-8.5) Ur Specific [place] 1.020 (1.000-1.030) Urine Protein 1+ A (Negative) Urine Glucose (UA) Negative (Negative) Assessment and Plan Assessment and plan (1) Atrial fibrillation with rapid ventricular response: Status: Acute (2) Lewy body dementia without behavioral disturbance: Problem comment: Dr [facility], 05/2024 Status: Chronic (3) Parkinsonism: Problem comment: Dr [facility], 05/2024 Status: Chronic (4) Urinary frequency: Status: Chronic (5) Weight loss, unintentional: Problem comment: 8kg in 3 months , stable 05/2024 CT abd / pelvis: possible thickening cecum, 5 mm lung nodule - no colonoscopy or repeat lung CT per discussion again 05/2024 Status: Chronic Plan Patient was initially seen in the emergency department for altered mental status. Initial blood work and CT head were unremarkable for any acute findings. Per daughter she was not clear if patient was more of than his baseline. In the emergency department he was noted to be in A-fib with RVR. He was initially given metoprolol IV pushes and was attempted to cardiovert x 2. Both attempts were unsuccessful. Cardiology was consulted and the recommended to start metoprolol 25 mg every 6 hours. The first dose was given at the time of the admission. His heart rate still remains somewhat elevated. 5 mg IV Lopressor has been ordered. If patient's heart rate remains in 120s, will start Cardizem drip. Otherwise cardiology consult in the morning for further management. Resume patient's Coumadin. Total Time Spent Total Time Spent: 55 Telehealth: Statement Statement Telehealth Visit: Today's History and Physical is provided via interactive telehealth by Vicky Higgins MD.? Patient is located at [facility].? Provider is located at [facility].? Nursing staff assisted with the patient's exam. The visit being done today meets criteria for a telehealth visit and the patient or patient?s parent/guardian is aware the visit is a telehealth visit. Camera Start Time: 02:58 Camera End Time: 03:07
--- NOTE | 2025-01-30 07:05 | PC.NURSE ---
Pt arrived to the floor at 0200, alert and oriented to self. Baseline dementia. Tele reads Afib with RVR. HR jumping from 110s ? 140s, ([facility]) notified. PRN IV push metoprolol given per orders, HR still jumping within previous range. Pt has an intermittent tight cough, non-productive. Bilateral bases diminished. IV site redressed, patent. Pt 2a in bed. Pt in bed, appears to be resting, call light within reach and alarms on. ?
[2025-01-30] MEDS: SODIUM CHLORIDE 0.9 % (FLUSH) 10 ML SYRINGE 5 ML IVF ×2 (08:47→18:50)
[2025-01-30] MEDS: CARBIDOPA LEVODOPA PO ×2 (08:47→13:59)
[2025-01-30] MEDS: MEMANTINE HCL 10 MG TABLET PO (08:47)
[2025-01-30] MEDS: AZITHROMYCIN 500 MG in 0.9 % SODIUM CHLORIDE 250 ml 250 ML 255 MG IVPB (10:24)
--- NOTE | 2025-01-30 10:40 | PC.SOCIAL ---
Addendum entered by AC Vaca 01/30/25 15:59: Discharge planning: fruit worker updated Yamilex that the pt is meeting with the speech therapist tomorrow for an evaluation. Social work to follow-up as needed. Original Note: Discharge planning: fruit worker reviewed pt's chart and address and found that he lives at [facility]. fruit worker reached out to the RN there, Yamilex, who states that he lives in [facility] and has advanced care services. 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 fruit worker secure emailed Yamilex notes on the pt, as she asked for an update. Social work to follow-up as needed.
--- NOTE | 2025-01-30 13:11 | NUTR.NU ---
Nutrition: screen initiated r/t referral for swallowing difficulty and skin risk. Height 6' 1, Weight 175.3 lbs, BMI 23.1. Outpatient nutrition visit 04/04/24 weight 175.6 lbs. Admit altered mental status, Atrial Fib. Dx history: Lewey body dementia, Parkinson. Diet Heart Healthy. Intake at breakfast 25%, patient fed by nurse. Visited with nurse and provider. Speech evaluation scheduled for 8:45 tomorrow morning. Patient will be NPO until then. Patient lives in [facility] assisted living all nutrition is provided. Patient's is currently in rehab at another facility following a stroke. Patient unable to visit. No interventions at this time. Monitor diet advancement, tolerance and intake. Follow up prn.
--- NOTE | 2025-01-30 13:46 | PM.IMPN1 ---
Assessment and Plan Assessment and plan (1) Atrial fibrillation with rapid ventricular response: Problem comment: - known history of AFib, on Coumadin and dofetilide chronically. RVR noted 01/29/2025, initially treated with metoprolol IV pushes, then 2 attempts for cardioversion which were unsuccessful, cardiology consulted by ER provider and patient was admitted with IV metoprolol q.6 hours and converted this morning around 8 a.m. Continue dofetilide. Status: Acute (2) AMS (altered mental status): Problem comment: - Improving. CT head as above. Daughter, Shante, understanding that MRI would be challenging due to patient's inability to hold still. Noted that he is already on coumadin to prevent stroke from afib, and given his decline and comorbidities, even if stroke were found, it would likely not change plan of care. She was agreeable to hold of on further investigation with MRI. Status: Acute (3) Swallowing difficulty: Problem comment: NPO except meds and consult speech. Status: Acute (4) Lewy body dementia without behavioral disturbance: Problem comment: Dr Olmstead [facility], 05/2024 Status: Chronic (5) Parkinsonism: Problem comment: Dr Olmstead [facility], 05/2024 Status: Chronic (6) Urinary frequency: Status: Chronic (7) Weight loss, unintentional: Problem comment: 8kg in 3 months , stable 05/2024 CT abd / pelvis: possible thickening cecum, 5 mm lung nodule - no colonoscopy or repeat lung CT per discussion again 05/2024 Status: Chronic (8) Elevated troponin: Problem comment: - stable, suspect secondary to atrial fibrillation with rapid ventricular rate, no need to follow Status: Acute (9) Sinusitis: Problem comment: - seen on CT head, also possible otitis media with mastoid edema. Dtr notes patient has had trouble with sinusitis his entire life. Due to this finding in the setting of altered mental status, will start antibiotic. Patient has a known penicillin allergy as well as sulfa, will start azithromycin. A note that patient is also on chronic dofetilide. Continue cardiac monitoring. Status: Acute Plan Patient was initially seen in the emergency department for altered mental status. Initial blood work and CT head were unremarkable for any acute findings. Per daughter she was not clear if patient was more of than his baseline. In the emergency department he was noted to be in A-fib with RVR. He was initially given metoprolol IV pushes and was attempted to cardiovert x 2. Both attempts were unsuccessful. Cardiology was consulted and the recommended to start metoprolol 25 mg every 6 hours. The first dose was given at the time of the admission. His heart rate still remains somewhat elevated. 5 mg IV Lopressor has been ordered. If patient's heart rate remains in 120s, will start Cardizem drip. Otherwise cardiology consult in the morning for further management. Resume patient's Coumadin. Total Time Spent Total Time Spent: 55 Subjective Time Seen by Provider: 07:30 Date Seen: 01/30/25 Interval history: Anurag was sleeping when I first saw him, he was able to answer a few questions with a yes or no. He denies pain. Later I went back in to speak with his daughter, Shante, who had arrived, and he in bed with the head elevated and a staff member was attempting feeding him. His daughter stated that he has been declining with a fluctuating mental status, so yesterday when he was staring, it was something that he does sometimes, but it seemed to be worse than usual and longer. His had a stroke recently with R arm and leg weakness for which [facility]. He has been at [facility] for respite care and his is hoping to join him there next week after completing rehab. On telemetry this morning, he appeared to have converted to NSR. Exam Narrative: Exam Narrative: General: No acute distress. Awake, alert, grimaces, moves head and eyes left to right rapidly. Daughter notes these behaviors are typical, but are more frequent at present. No pallor. No jaundice. Ears: TMs pearly trevino bilaterally. No pain with observation of TMs or manipulation of pinna or palpation of sinuses or mastoids bilaterally. Oropharynx: Clear. Mucous membranes moist. Cardiovascular: Regular rate and rhythm. No murmurs, gallops, or rubs. Respiratory: Clear to auscultation bilaterally. No wheezes or crackles. Abdomen: Bowel sounds present. Soft, nondistended, nontender. Extremities: No lower extremity edema. Neuro: as above. No facial asymmetry. Moves all extremities. Does not follow commands. Const: Vital Signs, click to edit/add: Vital Signs - 24 hr 01/29/25 21:54 01/29/25 21:55 01/29/25 21:55 Temperature 98.9 F Pulse Rate 130 H 111 H Pulse Rate [Apical ] Pulse Rate [Pulse Oximeter] 149 H Respiratory Rate 18 Blood Pressure 100/87 Blood Pressure [Le ft Arm] Blood Pressure [Ri ght Upper Arm] 100/87 Pulse Oximetry 95 96 95 Oxygen Delivery Me thod Room Air 01/29/25 22:00 01/29/25 22:13 01/29/25 22:15 Temperature Pulse Rate 117 H 141 H 127 H Pulse Rate [Apical ] Pulse Rate [Pulse Oximeter] Respiratory Rate 25 H Blood Pressure 102/90 H Blood Pressure [Le ft Arm] Blood Pressure [Ri ght Upper Arm] Pulse Oximetry 95 94 94 Oxygen Delivery Me thod 01/29/25 22:19 01/29/25 22:30 01/29/25 22:32 Temperature Pulse Rate 137 H 129 H 133 H Pulse Rate [Apical ] Pulse Rate [Pulse Oximeter] Respiratory Rate 12 7 L Blood Pressure 95/76 117/84 Blood Pressure [Le ft Arm] Blood Pressure [Ri ght Upper Arm] Pulse Oximetry 94 96 94 Oxygen Delivery Me thod 01/29/25 22:45 01/29/25 22:47 01/29/25 23:07 Temperature Pulse Rate 117 H 119 H Pulse Rate [Apical ] Pulse Rate [Pulse Oximeter] Respiratory Rate 9 L 23 Blood Pressure 94/65 Blood Pressure [Le ft Arm] Blood Pressure [Ri ght Upper Arm] Pulse Oximetry 97 96 Oxygen Delivery Me thod 01/29/25 23:15 01/29/25 23:17 01/29/25 23:30 Temperature Pulse Rate 138 H 107 H 126 H Pulse Rate [Apical ] Pulse Rate [Pulse Oximeter] Respiratory Rate 8 L 9 L 7 L Blood Pressure 116/68 Blood Pressure [Le ft Arm] Blood Pressure [Ri ght Upper Arm] Pulse Oximetry 95 94 94 Oxygen Delivery Me thod 01/29/25 23:32 01/29/25 23:35 01/29/25 23:45 Temperature Pulse Rate 128 H 127 H Pulse Rate [Apical ] Pulse Rate [Pulse Oximeter] Respiratory Rate 11 L 14 12 Blood Pressure 122/86 127/104 H Blood Pressure [Le ft Arm] Blood Pressure [Ri ght Upper Arm] Pulse Oximetry 95 95 Oxygen Delivery Me thod 01/29/25 23:47 01/30/25 00:02 01/30/25 00:06 Temperature Pulse Rate 102 H Pulse Rate [Apical ] Pulse Rate [Pulse Oximeter] Respiratory Rate 12 5 L Blood Pressure 147/89 H 118/101 H Blood Pressure [Le ft Arm] Blood Pressure [Ri ght Upper Arm] Pulse Oximetry 95 95 [facility] 01/30/25 00:06 01/30/25 00:11 01/30/25 00:17 Temperature 98.9 F 98.5 F Pulse Rate 109 H Pulse Rate [Apical ] Pulse Rate [Pulse Oximeter] 149 H 122 H Respiratory Rate 12 12 5 L Blood Pressure 81/69 L Blood Pressure [Le ft Arm] Blood Pressure [Ri ght Upper Arm] 105/74 112/74 Pulse Oximetry 95 95 86 L [facility] Room Air 01/30/25 00:18 01/30/25 00:33 01/30/25 00:47 Temperature Pulse Rate 115 H 119 H 100 Pulse Rate [Apical ] Pulse Rate [Pulse Oximeter] Respiratory Rate 18 17 21 Blood Pressure 100/69 128/97 H 88/71 L Blood Pressure [Le ft Arm] Blood Pressure [Ri ght Upper Arm] Pulse Oximetry [address] 01/30/25 00:51 01/30/25 00:56 01/30/25 01:01 Temperature Pulse Rate 102 H 105 H 101 H Pulse Rate [Apical ] Pulse Rate [Pulse Oximeter] Respiratory Rate 22 10 L 21 Blood Pressure 101/79 107/82 117/81 Blood Pressure [Le ft Arm] Blood Pressure [Ri ght Upper Arm] Pulse Oximetry [address]od 01/30/25 01:07 01/30/25 01:12 01/30/25 01:23 Temperature Pulse Rate 105 H 103 H 109 H Pulse Rate [Apical ] Pulse Rate [Pulse Oximeter] Respiratory Rate 18 20 20 Blood Pressure 127/81 112/87 120/86 Blood Pressure [Le ft Arm] Blood Pressure [Ri ght Upper Arm] Pulse Oximetry 95 [address]od 01/30/25 01:27 01/30/25 01:37 01/30/25 01:42 Temperature Pulse Rate 107 H 125 H Pulse Rate [Apical ] Pulse Rate [Pulse Oximeter] Respiratory Rate 13 14 11 L Blood Pressure 120/97 H 110/87 121/106 H Blood Pressure [Le ft Arm] Blood Pressure [Ri ght Upper Arm] Pulse Oximetry 95 91 Oxygen Delivery Me thod 01/30/25 02:00 01/30/25 02:00 01/30/25 02:02 Temperature 98.4 F Pulse Rate Pulse Rate [Apical ] Pulse Rate [Pulse Oximeter] 132 H Respiratory Rate 18 16 16 Blood Pressure Blood Pressure [Le ft Arm] 120/96 H Blood Pressure [Ri ght Upper Arm] Pulse Oximetry [address]od Room Air Room Air 01/30/25 03:00 01/30/25 03:11 01/30/25 07:09 Temperature Pulse Rate 103 H 113 H Pulse Rate [Apical ] Pulse Rate [Pulse Oximeter] 118 H Respiratory Rate 18 Blood Pressure Blood Pressure [Le ft Arm] Blood Pressure [Ri ght Upper Arm] Pulse Oximetry [address] thod Room Air 01/30/25 07:57 01/30/25 11:36 Temperature 98.2 F 98.4 F Pulse Rate Pulse Rate [Apical ] 111 H 67 Pulse Rate [Pulse Oximeter] Respiratory Rate 18 16 Blood Pressure Blood Pressure [Le ft Arm] 103/75 102/67 Blood Pressure [Ri ght Upper Arm] Pulse Oximetry 94 93 Oxygen Delivery Me thod Room Air Room Air Labs Labs: Laboratory Results - last 24 hr 01/29/25 01/29/25 01/29/25 22:01 22:25 22:30 WBC 5.10 RBC 5.17 Hgb 15.3 Hct 46.9 MCV 91 MCH 30 MCHC 33 RDW Coeff of Cristofer 13.0 Plt Count 133 L Neut % (Auto) 77.6 H Lymph % (Auto) 6.3 L Mcminn % (Auto) 13.7 H Eos % (Auto) 0.6 Baso % (Auto) 0.2 Neut # (Auto) 4.00 Lymph # (Auto) 0.30 L Mcminn # (Auto) 0.70 Eos # (Auto) 0.03 Baso # (Auto) 0.01 Abs Immat Gran (auto) 0.08 Imm/Tot Granulo (auto) 1.6 INR 2.74 H Sodium 135 Potassium 4.6 Chloride 101 Carbon Dioxide 28 Anion Gap 6 L BUN 18 Creatinine 1.1 Estimated Creat Clear 60.14 Estimated GFR 68 Glucose 115 Lactate 1.4 Calcium 8.6 Magnesium 2.1 Total Bilirubin 1.3 AST 32 ALT 8 Alkaline Phosphatase 71 Troponin I 0.07 H* Total Protein 7.1 Albumin 4.0 TSH 1.200 Urine Color Urine Appearance Urine pH Ur Specific [place] Urine Protein Urine Glucose (UA) Urine Ketones Urine Blood Urine Nitrite Urine Bilirubin Urine Urobilinogen Ur Leukocyte Esterase Urine RBC Urine WBC Ur Squamous Epith Cells Amorphous Sediment Urine Bacteria Urine Mucus SARS-CoV-2 (PCR) Negative SARS-CoV-2 Influenza Type A (PCR) Negative PCR FLU A Influenza Type B (PCR) Negative PCR FLU B RSV (PCR) Negative PCR RSV POC Troponin I 01/29/25 01/30/25 01/30/25 22:50 00:15 10:50 WBC RBC Hgb Hct MCV MCH MCHC RDW Coeff of Cristofer Plt Count Neut % (Auto) Lymph % (Auto) Mcminn % (Auto) Eos % (Auto) Baso % (Auto) Neut # (Auto) Lymph # (Auto) Mcminn # (Auto) Eos # (Auto) Baso # (Auto) Abs Immat Gran (auto) Imm/Tot Granulo (auto) INR Sodium Potassium Chloride Carbon Dioxide Anion Gap BUN Creatinine Estimated Creat Clear Estimated GFR Glucose Lactate Calcium Magnesium Total Bilirubin AST ALT Alkaline Phosphatase Troponin I 0.21 H* Total Protein Albumin TSH Urine Color Yellow Urine Appearance Clear Urine pH 6.0 Ur Specific [place] 1.020 Urine Protein 1+ A Urine Glucose (UA) Negative Urine Ketones 1+ A Urine Blood Trace-lysed A Urine Nitrite Negative Urine Bilirubin Negative Urine Urobilinogen 1.0 Ur Leukocyte Esterase Negative Urine RBC 0-2 Urine WBC 2-5 Ur Squamous Epith Cells Few Amorphous Sediment Few A Urine Bacteria Moderate A Urine Mucus Moderate A SARS-CoV-2 (PCR) Influenza Type A (PCR) Influenza Type B (PCR) RSV (PCR) POC Troponin I 0.08 H 01/30/2025 5:02 a.m. EKG: Atrial fibrillation with rapid ventricular response, 110 beats per minute. 01/30/2025 9:59 a.m. EKG: Sinus rhythm with premature atrial complexes in a pattern of bigeminy, 62 beats per minute, otherwise normal EKG. Ordering Physician: Apolinar Paula D.O. Date of Service: 01/29/25 Procedure(s): CT head/brain wo con Accession Number(s): [id number] cc: Apolinar Paula D.O.; Marli Sauceda M.D.~ For Patients: As a result of the Century Cures Act, medical imaging exams and procedure reports are released immediately into your electronic medical record. You may view this report before your referring provider. If you have questions, please contact your health care provider. INDICATION: AMS, LEWY BODY DEMENTIA AND PARKINSON`S. TECHNIQUE: CT head without contrast. COMPARISON: None. FINDINGS: Brain parenchyma, CSF spaces, and extra-axial spaces: Mild global brain parenchymal volume loss with commensurate sulcal and ventricular enlargement. Areas of moderate to severe hypoattenuation within the bilateral periventricular and deep white matter, consistent with chronic small vessel ischemic disease. The trevino-white differentiation is normal. No sign of mass, hemorrhage, or midline shift. No hydrocephalus. No extra-axial fluid collection. Skull base and calvarium: Small air-fluid level in the right maxillary sinus with [id number] mucosal thickening. Moderate bilateral ethmoid air cell mucosal thickening. Right mastoid effusion. Fluid within the right middle ear. The visualized orbits are grossly unremarkable. No skull fracture. IMPRESSION: 1. No evidence of an acute intracranial abnormality. 2. Brain parenchyma findings consistent with moderate to severe chronic small vessel ischemic disease on a background of age-related involutional change. 3. Right mastoid effusion with fluid within the right middle ear. Findings could represent otitis media with reactive mastoid effusion. Early otomastoiditis could also appear similar. 4. Moderate bilateral ethmoid air cell mucosal thickening and small air-fluid level within the right maxillary sinus, may represent acute sinusitis. Please note that all CT scans at this facility use dose modulation, iterative reconstruction, and/or weight-based dosing when appropriate to reduce radiation dose to as low as reasonably achievable. Dictated by Gerson Thornton MD @ 01/29/2025 11:45:06 PM (Electronically Signed) Ordering Physician: Apolinar Paula D.O. Date of Service: 01/29/25 Procedure(s): XR chest 1V portable Accession Number(s): [id number] cc: Apolinar Paula D.O.; Hernberg,Marli Marilyn B M.D.~ For Patients: As a result of the Century Cures Act, medical imaging exams and procedure reports are released immediately into your electronic medical record. You may view this report before your referring provider. If you have questions, please contact your health care provider. Indication: Altered mental status Technique: Single view of the chest Comparison: None Findings/Impression: Evaluation degraded due to significant patient rotation. Cardiomegaly and prominence of the aortic silhouette, may be exaggerated due to patient positioning but could be further evaluated with cross-sectional imaging if there is concern for acute aortic pathology. No organized consolidation appreciated. Dictated by Khanh English MD @ 01/29/2025 11:21:43 PM (Electronically Signed)
--- NOTE | 2025-01-30 14:15 | PC.NURSE ---
Pt. converted from A. Fib to NSR/Sinus Arrhythmia at 0845.
[2025-01-30] MEDS: WARFARIN 5 MG TABLET PO (16:51)
[2025-01-30] MEDS: ACETAMINOPHEN 325 MG TABLET PO (17:37)
--- NOTE | 2025-01-30 17:44 | P.CCN_ITS ---
Objective Objective Data Details: Patient is having axillary temperature of 103 F. source of infection could be o titis media with possible mastoiditis/acute sinusitis as per CT head report. Patient denies headache, photosensitivity or neck stiffness. Per my examination Brudzinski test was negative. Plan I ordered blood cultures Will start broad-spectrum IV antibiotics Will give IV fluids If patient does not improve, we may need to consult neurology. CTH showed: Right mastoid effusion with fluid within the right middle ear. Findings could represent otitis media with reactive mastoid effusion. Early otomastoiditis could also appear similar. Moderate bilateral ethmoid air cell mucosal thickening and small air-fluid level within the right maxillary sinus, may represent acute sinusitis. Assessment and Plan Assessment and plan (1) Fever: Problem comment: Patient is having axillary temperature of 103 F. source of infection could be otitis media with possible mastoiditis/acute sinusitis as per CT head report. Patient denies headache, photosensitivity or neck stiffness. Per my examination Brudzinski test was negative. Plan I ordered blood cultures Will start broad-spectrum IV antibiotics Will give IV fluids If patient does not improve, we may need to consult neurology. Status: Acute
[2025-01-30] MEDS: cefTRIAXone 1 GM in 0.9 % SODIUM CHLORIDE Mini-bag 100 ML IVPB (18:48)
--- NOTE | 2025-01-30 19:48 | PC.NURSE ---
End of shift [id number] - RN took over pt care at approximately 1500. Pt arousable to verbal commands and light shaking. Disoriented to all but self. Noted to only answer RN in 1-2 word sentences. Denies pain, SOB, n/v. Tolerating RA and NPO diet per MD. RN noted pt skin to be warm to the touch, oral temperature reading WNL, however, axillary temperature reading above normal limit. MD made aware, given antipyretic per SEP with axillary temperature reading improving upon reassessment. MD provided new orders in SEP. Pt observed to sleep during shift. Pt appears to be resting in bed with call light within reach.
[2025-01-31] VITALS (37 sets, daily range): BP systolic 79–148; BP diastolic 59–104; PULSE 63–157; RESP 16–18; TEMP 36.5–38.4; O2SAT 90–96
[2025-01-31] MEDS: ACETAMINOPHEN 325 MG TABLET PO (04:22)
[2025-01-31 06:01] LABS: Hematocrit 43.2 % (37.0-53.0); Hemoglobin* 14.2 gm/dL (13.5-17.5); Immature Granulocytes Abs Auto 0.03 K/uL (0.00-0.30); Immature Granulocytes Pct Auto 0.4 %; Mean Corpuscular HGB Conc 33 gm/dL (32-36); Mean Corpuscular Hemoglobin 30 pg (26-34); Mean Corpuscular Volume 91 fL (80-100); RDW Coefficient of Variation % 13.2 % (11.5-15.5); Red Blood Count 4.76 m/uL (4.30-5.90); White Blood Count* 8.04 K/uL (4.50-11.00)
[2025-01-31 06:10] LABS: Lymphocytes Absolute Auto 0.40 K/uL (0.90-2.90); Slide Review Reflex No
[2025-01-31 06:11] LABS: Chloride* 103 mmol/L (96-114); Sodium* 133 mmol/L (135-149)
[2025-01-31 06:12] LABS: Potassium* 3.7 mmol/L (3.6-5.1)
[2025-01-31 06:14] LABS: Blood Urea Nitrogen* 18 mg/dL (7-30); Creatinine* 0.9 mg/dL (0.5-1.5); Est. Creatinine Clearance* 66.26; Estimated Glomerular Filt Rate 86 ml/min
[2025-01-31 06:15] LABS: Anion Gap 3 mEq/L (7-15); Calcium* 8.2 mg/dL (8.4-10.6); Carbon Dioxide* 27 mmol/L (20-32); Glucose* 86 mg/dL (60-115)
[2025-01-31 06:16] LABS: INR 2.73 (0.91-1.10); Prothrombin Time 30.1 Seconds
--- NOTE | 2025-01-31 06:34 | PC.NURSE ---
Shift note ([id number]): Patient very sleepy and difficult to arouse for first part of shift. Was warm to touch and perspiring at 1945. Temp was 99.2. Socks were removed and pt was covered with sheet at that time.?Probate Judge attempted to administer HS medications crushed in very small amount of pudding, however pt kept falling asleep and would not follow directions to swallow. Mouth was swabbed out and medications/pudding removed at that time.?Temp at 2220 was 98.8. Patient more awake and alert during the night and was verbally responding to staff. Verbally?making his needs known. Denied pain during night. Pt warm to touch at 0427. PRN Tylenol given. Recheck 99.9.?
[2025-01-31] MEDS: METOPROLOL TARTRATE 1 MG/ML inj 5 MG IVP ×2 (06:44→08:17)
[2025-01-31] MEDS: 0.9 % SODIUM CHLORIDE 500 ML 500 ML IV (08:18)
[2025-01-31] MEDS: VANCOMYCIN 1.5 GM/300 ML 1.5 GM/300 ML PIGGYBACK IVPB (09:26)
[2025-01-31] MEDS: SODIUM CHLORIDE 0.9 % (FLUSH) 10 ML SYRINGE 5 ML IVF ×2 (09:28→20:52)
[2025-01-31] MEDS: CARBIDOPA LEVODOPA PO ×3 (09:33→20:35)
[2025-01-31] MEDS: MEMANTINE HCL 10 MG TABLET PO ×2 (09:34→20:35)
[2025-01-31] MEDS: DOXYCYCLINE HYCLATE 100 MG PO ×2 (09:34→20:35)
[2025-01-31] MEDS: FEXOFENADINE 180 MG TABLET PO (09:34)
--- NOTE | 2025-01-31 10:18 | REH.SLP ---
BRINE TANK SEPARATOR OPERATOR orders received, chart reviewed and discussed with RN and patient's daughter. Patient is familiar to this writing from OP video swallow study in July of this year. Unable to arouse Anurag so bedside swallow evaluation not completed this morning. Will continue to follow for appropriateness.
--- NOTE | 2025-01-31 10:26 | PC.PHA ---
Warfarin consult note: Reason for warfarin: [A-FIB] INR goal requested by the provider: [2-3] Most recent INR: [2.73 01/31] (date and result) Usual home dose (if any): [5 MG DAILY] Today's dose ordered: [3 MG] Vitamin K given: [] date, time, and dose given Comments: [PT IS NPO OF YESTERDAY]
--- NOTE | 2025-01-31 10:29 | PC.PHA ---
Vancomycin consult note: Indication for vancomycin: [SEPSIS?] Age: [79] Height: [185 CM] Weight: [78.4 KG] Most recent SCr: [0.9] Estimated CrCL: [] Recommended dose and frequency: [1000 MG IV Q12 HR] to obtain an estimated AUC/HOLLAND of 400-600 mcg*hr/m 553 Additional comment: []
--- NOTE | 2025-01-31 12:33 | PC.SOCIAL ---
Discharge planning: STACY Kaminski from [facility] met with the pt and his daughter this morning at the hospital. Pt will be staying in the hospital again tonight. The plan is for the pt to go back to [facility] when he is medically ready. Social work to follow-up as needed.
[2025-01-31] MEDS: dilTIAZem 5 MG/ML inj 10 MG IVP (12:34)
[2025-01-31] MEDS: dilTIAZem HCL 125 MG in 0.9 % SODIUM CHLORIDE 100 ml 100 ML IVPB (13:32)
--- NOTE | 2025-01-31 13:45 | P.IMPN_ITS ---
Assessment and Plan Assessment and plan (1) Atrial fibrillation with rapid ventricular response: Problem comment: - 01/30 known history of AFib, on Coumadin and dofetilide chronically. RVR noted 01/29/2025, initially treated with metoprolol IV pushes, then 2 attempts for cardioversion which were unsuccessful, cardiology consulted by ER provider and patient was admitted with IV metoprolol q.6 hours and converted this morning around 8 a.m. - 01/31 patient's home dofetilide was unavailable yesterday or overnight. Metoprolol IV not controlling HR. Diltiazem bolus helpful, but not adequate control yet. BP okay with diltiazem bolus, start drip, transfer to CCU for this. Status: Resolved (2) AMS (altered mental status): Problem comment: - Improving. family declined MRI to rule out stroke Status: Resolved (3) Elevated troponin: Problem comment: - stable, suspect secondary to atrial fibrillation with rapid ventricular rate. downtrending. Status: Resolved (4) Fever: Problem comment: Patient had fever overnight. Start doxycycline and vancomycin. Status: Resolved (5) Sinusitis: Problem comment: - seen on CT head, also possible otitis media with mastoid edema. Dtr notes patient has had trouble with sinusitis his entire life. Due to this finding in the setting of altered mental status, will start antibiotic. Patient has a known penicillin allergy as well as sulfa, will start doxycycline and Vanc. Status: Resolved (6) Swallowing difficulty: Problem comment: NPO except meds and consult speech. Status: Acute Subjective Time Seen by Provider: 07:37 Date Seen: 01/31/25 Interval history: Anurag's daughter, Carolyn, is here with him today. She notes that Anurag is more alert, talkative, and has fewer grimaces and twitches. Anurag denies pain. He said a few things as jokes and smiled while saying them. Exam Narrative: Exam Narrative: General: No acute distress. Awake, alert, grimaces, moves head and eyes left to right rapidly. Daughter notes these behaviors are typical, but are more frequent at present. No pallor. No jaundice. Ears: TMs pearly trevino bilaterally. No pain with observation of TMs or manipulation of pinna or palpation of sinuses or mastoids bilaterally. Oropharynx: Clear. Mucous membranes moist. Cardiovascular: Regular rate and rhythm. No murmurs, gallops, or rubs. Respiratory: Clear to auscultation bilaterally. No wheezes or crackles. Abdomen: Bowel sounds present. Soft, nondistended, nontender. Extremities: No lower extremity edema. Neuro: as above. No facial asymmetry. Moves all extremities. Does not follow commands. Const: Vital Signs, click to edit/add: Vital Signs - 24 hr 01/30/25 15:38 01/30/25 15:52 01/30/25 17:37 Temperature 98.3 F 102.3 F H Pulse Rate 76 Pulse Rate [Apical ] Pulse Rate [Pulse Oximeter] 72 Respiratory Rate 20 Blood Pressure [Le ft Arm] 121/70 Blood Pressure [Ri ght Arm] Pulse Oximetry 93 Oxygen Delivery Me thod Room Air 01/30/25 17:41 01/30/25 17:41 01/30/25 19:01 Temperature 98.8 F 102.3 F H 100.4 F H Pulse Rate Pulse Rate [Apical ] Pulse Rate [Pulse Oximeter] Respiratory Rate Blood Pressure [Le ft Arm] Blood Pressure [Ri ght Arm] Pulse Oximetry Oxygen Delivery Wa thod 01/30/25 19:45 01/30/25 22:20 01/31/25 01:50 Temperature 99.2 F 98.8 F Pulse Rate 63 Pulse Rate [Apical ] Pulse Rate [Pulse Oximeter] 88 77 Respiratory Rate 20 17 Blood Pressure [Le ft Arm] 132/82 118/68 Blood Pressure [Ri ght Arm] Pulse Oximetry 92 91 [facility] Room Air 01/31/25 04:22 01/31/25 04:27 01/31/25 06:31 Temperature 101.1 F H 101.1 F H 99.9 F H Pulse Rate Pulse Rate [Apical ] Pulse Rate [Pulse Oximeter] 79 Respiratory Rate 17 Blood Pressure [Le ft Arm] 148/82 H Blood Pressure [Ri ght Arm] Pulse Oximetry 91 Oxygen Delivery Me thod Room Air 01/31/25 07:27 01/31/25 07:30 01/31/25 07:35 Temperature 98.9 F Pulse Rate 157 H Pulse Rate [Apical ] Pulse Rate [Pulse Oximeter] 131 H Respiratory Rate 16 Blood Pressure [Le ft Arm] 85/66 L 104/75 Blood Pressure [Ri ght Arm] 121/87 124/82 Pulse Oximetry 96 Oxygen Delivery Me thod Room Air 01/31/25 09:00 01/31/25 10:58 01/31/25 12:33 Temperature 97.7 F Pulse Rate Pulse Rate [Apical ] 67 Pulse Rate [Pulse Oximeter] 133 H 136 H Respiratory Rate 16 18 Blood Pressure [Le ft Arm] 122/91 H 122/102 H Blood Pressure [Ri ght Arm] 144/104 H Pulse Oximetry 94 Oxygen Delivery Me thod Room Air Labs Labs: Laboratory Results - last 24 hr 01/30/25 01/31/25 13:22 05:32 WBC 8.04 RBC 4.76 Hgb 14.2 Hct 43.2 MCV 91 MCH 30 MCHC 33 RDW Coeff of Cristofer 13.2 Plt Count 103 L Neut % (Auto) 82.8 H Lymph % (Auto) 4.9 L Bosque % (Auto) 11.8 H Eos % (Auto) 0.0 Baso % (Auto) 0.1 Neut # (Auto) 6.70 Lymph # (Auto) 0.40 L Bosque # (Auto) 0.90 Eos # (Auto) 0.00 Baso # (Auto) 0.01 Abs Immat Gran (auto) 0.03 Imm/Tot Granulo (auto) 0.4 INR 2.73 H Sodium 133 L Potassium 3.7 Chloride 103 Carbon Dioxide 27 Anion Gap 3 L BUN 18 Creatinine 0.9 Estimated Creat Clear 66.26 Estimated GFR 86 Glucose 86 Calcium 8.2 L Troponin I 0.21 H*
--- NOTE | 2025-01-31 15:31 | PC.NURSE ---
Pt went CCU @ 1310 due to uncontrolled afib with RVR with attempts of IV metoprolol and Diltiazem IV push. MD Jimenez was updated intermittently throughout the day regarding BP and HR updates. Pt is oriented to name, , month, year. Pt showed understanding of situation during room change. Pt able to respond in minimal sentences. Daughter at bedside with continued updates, showing understanding. Questions being answered. Report handoff given to STACY Mccray.
[2025-01-31] MEDS: WARFARIN 3 MG TABLET PO (17:32)
[2025-01-31] MEDS: cefTRIAXone 1 GM in 0.9 % SODIUM CHLORIDE Mini-bag 100 ML IVPB (18:43)
--- NOTE | 2025-01-31 19:06 | PC.NURSE ---
End of shift: patient on Diltiazem from 1345 to 1715. MO and BP within limits when MD okayed to pause diltiazem. see charting on vitals Q15min. Patient on minced/moist diet with thin liquids. Upright for 30min after, SBA with meals per Speech eval. Patient is afib on tele. Purewick in place. Afebrile this shift.
[2025-01-31] MEDS: VANCOMYCIN 1 GM/200 ML 1 GM/200 ML PIGGYBACK IVPB (20:33)
[2025-02-01] VITALS (28 sets, daily range): BP systolic 101–144; BP diastolic 71–99; PULSE 100–136; RESP 16–24; TEMP 36.2–36.6; O2SAT 90–95
[2025-02-01] MEDS: METOPROLOL TARTRATE 1 MG/ML inj 5 MG IVP ×5 (00:43→19:46)
--- NOTE | 2025-02-01 05:53 | PC.NURSE ---
Pt rested well this night. Hr ranged from high 90s to 118 most of the night. If HR increased Metoprolol was given. Dameon was called @ 0430 because HR crept past 120. was concerned about Pt soft BPs so advised another Metop push instead of restarting Dilt ggt. Pt HR responded appropriately. Pt does remain in Afib w irregular rate. Pt is pleasant and cooperative. Ext Cath was on all night and worked properly keeping Pt dry. Pt was Afebrile and reported zero pain.
[2025-02-01 06:59] LABS: INR 4.05 (0.91-1.10); Prothrombin Time 40.7 Seconds
--- NOTE | 2025-02-01 07:58 | P.IMPN_ITS ---
Assessment and Plan Assessment and plan (1) Atrial fibrillation with rapid ventricular response: Problem comment: - known history of AFib, on Coumadin and dofetilide chronically. RVR noted 01/29/2025, initially treated with metoprolol IV pushes, then 2 attempts for cardioversion which were unsuccessful. -admitted with IV metoprolol --> converted --> back in AFIB/RVR on 01/31. Cardizem gtt and push bottomed out blood pressure -02/01; magnesium and digoxin. aware of risk with dig + doftilide = torsades de pointes. on continuous tele. No echo ordered. Status: Acute (2) Febrile illness: Problem comment: had fever >101. no fever in over 24 hours. Source was thought to be sinusitis. TM's normal. single 1V cxr was completed. limited. all cultures negative. d/c IV abx and continue oral doxy for sinusitis. more intense workup if fever returns or inflammatory markers keep increasing. Status: Acute (3) AMS (altered mental status): Problem comment: - Improving. family declined MR at this time. Status: Acute (4) Elevated troponin: Problem comment: - stable, suspect secondary to atrial fibrillation with rapid ventricular rate. downtrending. Status: Acute (5) Sinusitis: Problem comment: - seen on CT head, also possible otitis media with mastoid edema. Dtr notes patient has had trouble with sinusitis his entire life. Due to this finding in the setting of altered mental status, will start antibiotic. Patient has a known penicillin allergy as well as sulfa, will start doxycycline and Vanc. A note that patient is also on chronic dofetilide. Continue cardiac monitoring. Status: Acute (6) Atrial fibrillation and flutter: Problem comment: sees supervisor pairing and inspecting q [address] rodríguez / chuck/ stockkeeper / supervisor pairing and inspecting Status: Chronic (7) [facility] current use of anticoagulant therapy: Problem comment: Indication: Afib Duration: INR goal 2-3, lifelong Status: Chronic (8) Lewy body dementia without behavioral disturbance: Problem comment: Dr [facility], 05/2024 Status: Chronic (9) Parkinsonism: Problem comment: Dr [facility], 05/2024 Status: Chronic (10) Lives in assisted living facility: Problem comment: [facility] enhanced care Status: Acute Subjective Date Seen: 02/01/25 Interval history: Daily Progress Note - Hospital Medicine Day #: 3, Day#2 in CCU CC: Afib with RVR, fever, LBD with dementia 24 HOUR UPDATE: stopping IV vanc and azithro - doxy monotherapy for sinusitis magnesium 2 grams this am with Digoxin load for better HR control No echo has been completed this hospitalization; last one with cards was in 03/04 has not missed any doses of the Tikosyn. This typically has controlled his AFIB rate. He is also anticoagulated. Daughter states this was the first morning he recognized her and made conversation. When I walk in he is eating his eggs, looking for his glasses and asking for salt and pepper. He generally answers my questions. Notable Labs, Micro, Rads, Interventions: CBC unremarkable. INR elevated at 4.05 PH normal CRP up trending 18.9-21.7. Blood cultures, urine culture MRSA negative. Imaging reviewed. Troponin downtrending Objective: aged; appropriate weight. no distress. coughing a little. Vitals: HR was generally sustaining >120 and up to the 130's overnight. see above Lungs: no resp distress; tachypnea. Cardiac: irregular; fast. Disposition/Potential discharge - can return to [facility] in the next 48 hours likely. I'd like to maintain CCU level care until HR>100 and no evidence of infection. Today I spent 50minutes seeing the patient, reviewing Expanse and EPIC notes/diagnostics, discussing the care plan with our care time that includes social work, PT/OT, pharmacy, RT, [facility] and documenting my impressions and plan in the medical record. Exam Const: Vital Signs, click to edit/add: Vital Signs - 24 hr 01/31/25 09:00 01/31/25 10:58 01/31/25 12:33 Temperature 97.7 F Pulse Rate Pulse Rate [Apical ] 67 Pulse Rate [Pulse Oximeter] 133 H 136 H Respiratory Rate 16 18 Blood Pressure [Le ft Arm] 122/91 H 122/102 H Blood Pressure [Ri ght Arm] 144/104 H Pulse Oximetry 94 Oxygen Delivery Me thod Room Air 01/31/25 13:10 01/31/25 13:45 01/31/25 14:00 Temperature 97.7 F 97.7 F Pulse Rate Pulse Rate [Apical ] 118 H Pulse Rate [Pulse Oximeter] 126 H 117 H 111 H Respiratory Rate 18 18 Blood Pressure [Le ft Arm] 109/89 101/81 111/78 Blood Pressure [Ri ght Arm] Pulse Oximetry 94 94 Oxygen Delivery Me thod Room Air Room Air 01/31/25 14:15 01/31/25 14:30 01/31/25 14:45 Temperature 97.7 F 97.7 F 97.7 F Pulse Rate Pulse Rate [Apical ] 120 H 116 H 120 H Pulse Rate [Pulse Oximeter] 116 H 104 H 110 H Respiratory Rate 18 18 18 Blood Pressure [Le ft Arm] 110/81 111/89 110/74 Blood Pressure [Ri ght Arm] Pulse Oximetry 90 90 90 Oxygen Delivery Me thod Room Air Room Air Room Air 01/31/25 15:00 01/31/25 15:00 01/31/25 15:00 Temperature 97.7 F Pulse Rate 113 H Pulse Rate [Apical ] 116 H Pulse Rate [Pulse Oximeter] 100 102 H Respiratory Rate 18 18 Blood Pressure [Le ft Arm] 115/72 Blood Pressure [Ri ght Arm] Pulse Oximetry 92 Oxygen Delivery Nj thod Room Air 01/31/25 15:15 01/31/25 15:30 01/31/25 15:45 Temperature 97.7 F 97.7 F 97.7 F Pulse Rate Pulse Rate [Apical ] 114 H 118 H 107 H Pulse Rate [Pulse Oximeter] 107 H 103 H 100 Respiratory Rate 18 18 18 Blood Pressure [Le ft Arm] 119/80 101/81 106/76 Blood Pressure [Ri ght Arm] Pulse Oximetry 92 92 92 Oxygen Delivery Me thod Room Air Room Air Room Air 01/31/25 16:00 01/31/25 16:15 01/31/25 16:17 Temperature 97.7 F 97.7 F 97.7 F Pulse Rate Pulse Rate [Apical ] 100 113 H 113 H Pulse Rate [Pulse Oximeter] 96 100 97 Respiratory Rate 18 18 18 Blood Pressure [Le ft Arm] 96/68 79/67 L 100/60 Blood Pressure [Ri ght Arm] Pulse Oximetry 92 92 92 Oxygen Delivery Me thod Room Air Room Air Room Air 01/31/25 16:45 01/31/25 17:00 01/31/25 17:05 Temperature 97.7 F 97.7 F Pulse Rate Pulse Rate [Apical ] 92 100 87 Pulse Rate [Pulse Oximeter] 89 88 82 Respiratory Rate 18 18 18 Blood Pressure [Le ft Arm] 96/72 83/59 L 93/62 Blood Pressure [Ri ght Arm] Pulse Oximetry 92 92 92 Oxygen Delivery Me thod Room Air Room Air Room Air 01/31/25 17:15 01/31/25 17:30 01/31/25 18:00 Temperature Pulse Rate Pulse Rate [Apical ] 86 88 86 Pulse Rate [Pulse Oximeter] 76 76 80 Respiratory Rate 18 18 18 Blood Pressure [Le ft Arm] 91/61 96/74 96/63 Blood Pressure [Ri ght Arm] Pulse Oximetry 92 92 92 Oxygen Delivery Me thod Room Air Room Air Room Air 01/31/25 18:30 01/31/25 19:05 01/31/25 20:01 Temperature 97.9 F Pulse Rate Pulse Rate [Apical ] 101 H Pulse Rate [Pulse Oximeter] 94 94 98 Respiratory Rate 18 16 16 Blood Pressure [Le ft Arm] 105/69 96/61 100/62 Blood Pressure [Ri ght Arm] Pulse Oximetry 91 94 91 Oxygen Delivery Nj thod Room Air Room Air Room Air 01/31/25 21:01 01/31/25 21:13 01/31/25 22:00 Temperature 97.9 F 98.4 F Pulse Rate 101 H Pulse Rate [Apical ] Pulse Rate [Pulse Oximeter] 96 89 Respiratory Rate 16 16 Blood Pressure [Le ft Arm] 106/74 107/74 Blood Pressure [Ri ght Arm] Pulse Oximetry 90 91 Oxygen Delivery Nj thod Room Air Room Air 01/31/25 22:25 01/31/25 23:04 02/01/25 00:02 Temperature 98.4 F Pulse Rate Pulse Rate [Apical ] 101 H Pulse Rate [Pulse Oximeter] 89 109 H 101 H Respiratory Rate 16 16 16 Blood Pressure [Le ft Arm] 108/77 102/83 Blood Pressure [Ri ght Arm] Pulse Oximetry 92 90 Oxygen Delivery Me thod Room Air Room Air 02/01/25 00:41 02/01/25 01:15 02/01/25 02:06 Temperature 97.9 F 97.9 F 97.8 F Pulse Rate Pulse Rate [Apical ] Pulse Rate [Pulse Oximeter] 114 H 104 H 103 H Respiratory Rate 16 16 16 Blood Pressure [Le ft Arm] 110/81 106/87 102/71 Blood Pressure [Ri ght Arm] Pulse Oximetry 90 90 90 Oxygen Delivery Me thod Room Air Room Air Room Air 02/01/25 03:00 02/01/25 04:04 02/01/25 05:05 Temperature 97.4 F L 97.8 F 97.6 F Pulse Rate Pulse Rate [Apical ] Pulse Rate [Pulse Oximeter] 100 111 H 118 H Respiratory Rate 16 16 16 Blood Pressure [Le ft Arm] 118/84 126/88 101/81 Blood Pressure [Ri ght Arm] Pulse Oximetry 92 94 94 Oxygen Delivery Me thod Room Air Room Air Room Air 02/01/25 05:24 02/01/25 06:01 02/01/25 07:25 Temperature 97.9 F 97.9 F 97.7 F Pulse Rate Pulse Rate [Apical ] Pulse Rate [Pulse Oximeter] 114 H 113 H 120 H Respiratory Rate 16 16 20 Blood Pressure [Le ft Arm] 114/92 H 124/96 H 115/95 H Blood Pressure [Ri ght Arm] Pulse Oximetry 90 91 93 Oxygen Delivery Me thod Room Air Room Air Room Air 02/01/25 07:48 Temperature Pulse Rate Pulse Rate [Apical ] 129 H Pulse Rate [Pulse Oximeter] Respiratory Rate Blood Pressure [Le ft Arm] Blood Pressure [Ri ght Arm] Pulse Oximetry Oxygen Delivery Me thod Labs Labs: Laboratory Results - last 24 hr 02/01/25 02/01/25 06:33 07:50 INR 4.05 H Lab Acknowledgement Test Added
[2025-02-01] MEDS: MAGNESIUM IV 2 GM/50 ML PIGGYBACK IVPB (08:01)
[2025-02-01] MEDS: DIGOXIN 250 MCG/ML inj 500 MCG IV (08:02)
[2025-02-01] MEDS: SODIUM CHLORIDE 0.9 % (FLUSH) 10 ML SYRINGE 5 ML IVF ×6 (08:02→20:56)
[2025-02-01 08:05] LABS: HCO3 VBG 25 mmol/L (21-28); PCO2 VBG 41 mmHG (40-50); PO2 VBG < 30.1 mmHG (25-47); pH VBG 7.403 (7.32-7.43)
[2025-02-01 08:06] LABS: Hematocrit 40.7 % (37.0-53.0); Hemoglobin* 13.3 gm/dL (13.5-17.5); Immature Granulocytes Abs Auto 0.01 K/uL (0.00-0.30); Immature Granulocytes Pct Auto 0.1 %; Mean Corpuscular HGB Conc 33 gm/dL (32-36); Mean Corpuscular Hemoglobin 30 pg (26-34); Mean Corpuscular Volume 91 fL (80-100); RDW Coefficient of Variation % 13.1 % (11.5-15.5); Red Blood Count 4.48 m/uL (4.30-5.90); White Blood Count* 7.97 K/uL (4.50-11.00)
[2025-02-01 08:07] LABS: Lymphocytes Absolute Auto 0.60 K/uL (0.90-2.90); Slide Review Reflex No
[2025-02-01 08:22] LABS: Chloride* 106 mmol/L (96-114)
[2025-02-01 08:23] LABS: Albumin* 3.2 g/dL (3.3-5.0); Potassium* 3.7 mmol/L (3.6-5.1); Sodium* 135 mmol/L (135-149)
[2025-02-01 08:25] LABS: Blood Urea Nitrogen* 13 mg/dL (7-30); Creatinine* 0.7 mg/dL (0.5-1.5); Est. Creatinine Clearance* 66.58; Estimated Glomerular Filt Rate 93 ml/min
[2025-02-01 08:26] LABS: Anion Gap 3 mEq/L (7-15); Carbon Dioxide* 26 mmol/L (20-32)
[2025-02-01 08:27] LABS: Calcium* 8.1 mg/dL (8.4-10.6); Glucose* 86 mg/dL (60-115)
[2025-02-01] MEDS: CARBIDOPA LEVODOPA PO ×3 (08:36→20:52)
[2025-02-01] MEDS: FEXOFENADINE 180 MG TABLET PO (08:37)
[2025-02-01] MEDS: MEMANTINE HCL 10 MG TABLET PO ×2 (08:38→20:51)
[2025-02-01] MEDS: DOXYCYCLINE HYCLATE 100 MG PO ×2 (08:38→20:51)
--- NOTE | 2025-02-01 11:14 | PC.PHA ---
Warfarin consult note: Reason for warfarin: Afib INR goal requested by the provider: 2-3 Most recent INR: 02/01/25: 4.02 Usual home dose (if any): 5 mg daily Today's dose ordered: 02/01/25 No Warfarin Vitamin K given: N/A for INR of 4.02 Comments: INR jumped from 2.73 on 01/31/25
--- NOTE | 2025-02-01 11:20 | PC.SOCIAL ---
Discharge planning: frog or oyster farmworker updated Yamilex at [facility] that the pt will be in the hospital for a few more days to get his heart rate under control. frog or oyster farmworker also informed Yamilex that the pt was moved to a CCU room yesterday afternoon for closer monitoring. Social work to follow-up as needed.
[2025-02-01 15:12] LABS: Procalcitonin* 0.06 ng/mL (<0.50)
[2025-02-01] MEDS: DIGOXIN 250 MCG/ML inj IV (15:59)
[2025-02-01] MEDS: METOPROLOL TARTRATE 25 MG TABLET PO ×2 (16:45→23:45)
--- NOTE | 2025-02-01 18:24 | PC.NURSE ---
Pt alert, oriented to self only. Up with x2 assist and stand/pivot to commode and chair. Tolerating RA and regular diet/fluids. Pt observed to feed himself with set up. Denies pain, SOB, n/v. HR noted to be elevated during shift. Given medication per MAR and MD orders. Observed to sleep, family at bedside. Incontinent of bowel and bladder during shift. Appears to be resting comfortably with call light within reach at end of shift. ?
[2025-02-02] VITALS (21 sets, daily range): BP systolic 100–157; BP diastolic 81–115; PULSE 80–118; RESP 16–18; TEMP 36.1–36.6; O2SAT 92–97
--- NOTE | 2025-02-02 04:55 | PC.NURSE ---
Pt HR control much improved compared to previous night. Pt actually tried getting out of bed several times throughout the night but was easily redirected. Ext cath worked well. Pt had BM last evening. Afebrile. Reporting zero pain.
[2025-02-02 06:23] LABS: Hematocrit 44.5 % (37.0-53.0); Hemoglobin* 14.6 gm/dL (13.5-17.5); Immature Granulocytes Abs Auto 0.05 K/uL (0.00-0.30); Immature Granulocytes Pct Auto 1.0 %; Mean Corpuscular HGB Conc 33 gm/dL (32-36); Mean Corpuscular Hemoglobin 29 pg (26-34); Mean Corpuscular Volume 90 fL (80-100); RDW Coefficient of Variation % 13.0 % (11.5-15.5); Red Blood Count 4.97 m/uL (4.30-5.90); White Blood Count* 5.17 K/uL (4.50-11.00)
[2025-02-02 06:25] LABS: Lymphocytes Absolute Auto 0.60 K/uL (0.90-2.90); Slide Review Reflex No
[2025-02-02 06:50] LABS: Chloride* 109 mmol/L (96-114); Potassium* 3.6 mmol/L (3.6-5.1); Sodium* 138 mmol/L (135-149)
[2025-02-02 06:52] LABS: Blood Urea Nitrogen* 11 mg/dL (7-30); Creatinine* 0.7 mg/dL (0.5-1.5); Est. Creatinine Clearance* 66.58; Estimated Glomerular Filt Rate 93 ml/min
[2025-02-02 06:53] LABS: Anion Gap 1 mEq/L (7-15); Calcium* 8.5 mg/dL (8.4-10.6); Carbon Dioxide* 28 mmol/L (20-32); Glucose* 93 mg/dL (60-115)
[2025-02-02 06:54] LABS: INR 2.94 (0.91-1.10); Prothrombin Time 31.9 Seconds
[2025-02-02 07:09] LABS: Procalcitonin* 0.35 ng/mL (<0.50)
[2025-02-02] MEDS: METOPROLOL TARTRATE 25 MG TABLET PO ×3 (07:59→21:06)
[2025-02-02] MEDS: CARBIDOPA LEVODOPA PO ×3 (09:10→21:05)
[2025-02-02] MEDS: MEMANTINE HCL 10 MG TABLET PO ×2 (09:11→21:06)
[2025-02-02] MEDS: DOXYCYCLINE HYCLATE 100 MG PO ×2 (09:11→21:06)
[2025-02-02] MEDS: FEXOFENADINE 180 MG TABLET PO (09:11)
[2025-02-02] MEDS: SODIUM CHLORIDE 0.9 % (FLUSH) 10 ML SYRINGE 5 ML IVF ×2 (09:12→21:07)
--- NOTE | 2025-02-02 09:56 | P.IMPN_ITS ---
Assessment and Plan Assessment and plan (1) Atrial fibrillation with rapid ventricular response: Problem comment: - known history of AFib, on Coumadin and dofetilide chronically. - Presented with RVR 01/29/2025, initially treated with metoprolol IV pushes, then 2 attempts for cardioversion which were unsuccessful. - admitted with IV metoprolol and home dofetilide--> converted --> back in AFIB/RVR on 01/31. Cardizem gtt and push bottomed out blood pressure. Small pushes of IV metoprolol were not effective. -02/01; magnesium and digoxin. aware of risk with dig + doftilide = torsades de pointes. on continuous tele. No echo ordered. -evening of 02/01, in consultation with PharmD, we decided to abandoned the digoxin planned and start oral scheduled metoprolol. 25 mg p.o. q.6 hours. Overnight blood pressure did improve 02/02: Will increase p.o. metoprolol. Stop IV metoprolol. Continue monitoring on continuous telemetry. Magnesium normal. Status: Acute (2) Febrile illness: Problem comment: -had fever >101 in first 24 hours of admission. -afebrile since am of 01/31 -Source was thought to be sinusitis. TM's normal. single 1V cxr was completed. limited. all cultures negative. -d/c IV abx on 02/01 and continue oral doxy for sinusitis. more intense workup if fever returns or inflammatory markers keep increasing. -02/02 CRP and Procalcitonin downtrending/neg. clinically improved. afebrile. Status: Acute (3) AMS (altered mental status): Problem comment: - Improving. family declined MR Status: Acute (4) Elevated troponin: Problem comment: - stable, suspect secondary to atrial fibrillation with rapid ventricular rate. downtrending. Status: Acute (5) Sinusitis: Problem comment: - seen on CT head, also possible otitis media with mastoid edema. Dtr notes patient has had trouble with sinusitis his entire life. Due to this finding in the setting of altered mental status, will start antibiotic. Patient has a known penicillin allergy as well as sulfa, will start doxycycline and Vanc. A note that patient is also on chronic dofetilide. Continue cardiac monitoring. -see notes under febrile illness Status: Acute (6) Atrial fibrillation and flutter: Problem comment: sees sanitarian aide q [address] rodríguez / chuck/ resolute professional / sanitarian aide Status: Chronic (7) half-way current use of anticoagulant therapy: Problem comment: Indication: Afib Duration: INR goal 2-3, lifelong Status: Chronic (8) Lewy body dementia without behavioral disturbance: Problem comment: [facility], 05/[facility] Status: Chronic (9) Parkinsonism: Problem comment: [facility], 05/[facility] Status: Chronic (10) Lives in assisted living facility: Problem comment: [facility] enhanced care Status: Acute Subjective Date Seen: 02/02/25 Interval history: Daily Progress Note - Hospital Medicine Day #: 4, Day#2 in CCU, out of CCU this am CC: Afib with RVR, fever, LBD with dementia 24 HOUR UPDATE: Remains on monotherapy with doxycycline for sinusitis magnesium 2 grams this am with Digoxin load for better HR control No echo has been completed this hospitalization; last one with cards was in 03/04 has not missed any doses of the Tikosyn. This typically has controlled his AFIB rate. He is also anticoagulated. Daughter states this was the first morning he recognized her and made conversation. When I walk in he is eating his eggs, looking for his glasses and asking for salt and pepper. He generally answers my questions. Notable Labs, Micro, Rads, Interventions: Vitals are reviewed. He is afebrile. He is off oxygen and on room air. His pulse has been anywhere from 99-120 spending most time between 100-110. Labs reviewed this morning show an improving and stable CBC. INR is down to 2.94. Chemistries are reassuring CRP down trending Magnesium 2.0 Procalcitonin negative. All cultures negative to date. Troponin downtrending Objective: aged; appropriate weight. no distress. coughing a little. Vitals: see above Lungs: no resp distress; tachypnea. Cardiac: irregular; fast. Disposition/Potential discharge - can return to [facility] in the next 48 hours likely. I'd like to maintain CCU level care until HR>100 and no evidence of infection. Today I spent 50minutes seeing the patient, reviewing Expanse and EPIC notes/diagnostics, discussing the care plan with our care time that includes social work, PT/OT, pharmacy, RT, group home and documenting my impressions and plan in the medical record. Exam Const: Vital Signs, click to edit/add: Vital Signs - 24 hr 02/01/25 10:22 02/01/25 11:18 02/01/25 12:35 Temperature 97.3 F L Pulse Rate 136 H 104 H Pulse Rate [Apical ] Pulse Rate [Pulse Oximeter] 117 H Respiratory Rate 20 Blood Pressure [Le ft Arm] 117/88 Pulse Oximetry 93 Oxygen Delivery Dc thod Room Air 02/01/25 13:41 02/01/25 14:14 02/01/25 15:59 Temperature 97.7 F Pulse Rate 118 H Pulse Rate [Apical ] Pulse Rate [Pulse Oximeter] 107 H 125 H Respiratory Rate 20 Blood Pressure [Le ft Arm] 124/99 H Pulse Oximetry [facility] 02/01/25 16:00 02/01/25 16:21 02/01/25 17:42 Temperature 97.5 F L Pulse Rate 107 H Pulse Rate [Apical ] 103 H Pulse Rate [Pulse Oximeter] 101 H Respiratory Rate 20 Blood Pressure [Le ft Arm] 124/91 H Pulse Oximetry 93 [facility] 02/01/25 17:43 02/01/25 19:34 02/01/25 19:39 Temperature 97.2 F L 97.4 F L Pulse Rate 106 H Pulse Rate [Apical ] Pulse Rate [Pulse Oximeter] 114 H 111 H Respiratory Rate 24 18 Blood Pressure [Le ft Arm] 131/86 144/99 H Pulse Oximetry 92 94 [facility] 02/01/25 20:56 02/01/25 22:12 02/01/25 22:13 Temperature 97.8 F 97.8 F Pulse Rate Pulse Rate [Apical ] 103 H Pulse Rate [Pulse Oximeter] 111 H 114 H 114 H Respiratory Rate 18 18 18 Blood Pressure [Le ft Arm] 123/81 123/81 Pulse Oximetry 95 95 [facility] 02/02/25 00:02 02/02/25 00:02 02/02/25 01:10 Temperature 97.6 F Pulse Rate 100 Pulse Rate [Apical ] Pulse Rate [Pulse Oximeter] 94 94 Respiratory Rate 18 18 Blood Pressure [Le ft Arm] 114/82 Pulse Oximetry 96 Oxygen Delivery Me thod Room Air 02/02/25 02:15 02/02/25 03:59 02/02/25 04:05 Temperature 97.7 F 97.7 F Pulse Rate 101 H Pulse Rate [Apical ] 99 Pulse Rate [Pulse Oximeter] 87 99 Respiratory Rate 18 18 Blood Pressure [Le ft Arm] 109/94 H 142/96 H Pulse Oximetry 95 96 Oxygen Delivery Dc thod Room Air Room Air 02/02/25 04:41 02/02/25 06:12 02/02/25 07:41 Temperature 97.7 F Pulse Rate 109 H Pulse Rate [Apical ] 99 Pulse Rate [Pulse Oximeter] 99 107 H Respiratory Rate 18 18 Blood Pressure [Le ft Arm] 134/97 H Pulse Oximetry 95 [facility] 02/02/25 08:00 02/02/25 08:00 02/02/25 09:00 Temperature 97.3 F L 97.3 F L Pulse Rate Pulse Rate [Apical ] 107 H 107 H 107 H Pulse Rate [Pulse Oximeter] 107 H 107 H Respiratory Rate 18 18 18 Blood Pressure [Le ft Arm] 129/109 H 129/109 H Pulse Oximetry 94 94 Oxygen Delivery Dc thod Room Air Room Air Labs Labs: Laboratory Results - last 24 hr 01/29/25 02/01/25 02/02/25 22:25 14:21 06:14 WBC 5.17 RBC 4.97 Hgb 14.6 Hct 44.5 MCV 90 MCH 29 MCHC 33 RDW Coeff of Cristofer 13.0 Plt Count 131 L Neut % (Auto) 76.6 H Lymph % (Auto) 10.8 L Webb % (Auto) 10.4 Eos % (Auto) 1.0 Baso % (Auto) 0.2 Neut # (Auto) 4.00 Lymph # (Auto) 0.60 L Webb # (Auto) 0.50 Eos # (Auto) 0.05 Baso # (Auto) 0.01 Abs Immat Gran (auto) 0.05 Imm/Tot Granulo (auto) 1.0 INR 2.94 H Sodium 138 Potassium 3.6 Chloride 109 Carbon Dioxide 28 Anion Gap 1 L BUN 11 Creatinine 0.7 Estimated Creat Clear 66.58 Estimated GFR 93 Glucose 93 Calcium 8.5 Magnesium 2.0 C-Reactive Protein 14.9 H Procalcitonin 0.06 0.35 Lab Acknowledgement Test Added
[2025-02-02] MEDS: METOPROLOL TARTRATE 50 MG TABLET PO (11:25)
--- NOTE | 2025-02-02 13:38 | PC.SOCIAL ---
Addendum entered by KRISTIN Armijo 02/02/25 15:32: Spoke with Yamilex who stated pt can return tomorrow if he is at baseline for mobility (assistance of one for pivot transfer) and if medication orders can be sent to the facility pharmacy, [facility], today. RN provided urse to nurse report and medications were sent to pharmacy. Yamilex is aware of preperations made for possible discharge back tomorrow. Yamilex requested nurse call the on-call nurse at the [facility] ([phone]) as soon as discharge is determined to coordinate time of return. Facility does not have transportation available over the weekend. Original Note: Discharge planning: bible worker reached out to Yamilex at [facility] and shared that the doctor would like to keep the pt one more night and then have his discharge back to [facility]. [facility] wrote back stating they could not take the pt back on Wednesday due to not having enough nursing on stafff on Wednesday. bible worker's produce department supervisor will reach out to Yam[facility] about pt's need to come back tomorrow if he is medically ready for discharge. Social work to follow-up as needed.
[2025-02-02] MEDS: WARFARIN 2.5 MG TABLET PO (16:27)
--- NOTE | 2025-02-02 19:18 | PC.NURSE ---
Nursing Care Hours: [id number] Pt this shift calm and cooperative, oriented to self and place. No c/o pain or SOB. Purewick in place and patent. Skin warm and dry throughout. Tolerated diet. Intermittently sleeping in bed.
[2025-02-03] VITALS (15 sets, daily range): BP systolic 90–147; BP diastolic 61–116; PULSE 58–116; RESP 16–18; TEMP 36.3–36.9; O2SAT 93–96
[2025-02-03] MEDS: METOPROLOL TARTRATE 25 MG TABLET PO (04:21)
[2025-02-03 06:07] LABS: Hematocrit 42.2 % (37.0-53.0); Hemoglobin* 13.9 gm/dL (13.5-17.5); Mean Corpuscular HGB Conc 33 gm/dL (32-36); Mean Corpuscular Hemoglobin 30 pg (26-34); Mean Corpuscular Volume 90 fL (80-100); Red Blood Count 4.70 m/uL (4.30-5.90); White Blood Count* 5.39 K/uL (4.50-11.00)
--- NOTE | 2025-02-03 06:17 | PC.NURSE ---
Pt pleasant, alert and oriented to self.?Pt hypertensive, tele reads afib with rvr. HR ranging from high 80s-low 140s at times. Dameon was called, pt allowed prn metoprolol in addition to scheduled doses. Pure wick in place, patent and draining. Repositioned, checked, and changed. Denied pain. Pt in bed, appears to be resting, call light within reach, alarms on.?
[2025-02-03 06:23] LABS: Slide Review Reflex No
[2025-02-03 06:25] LABS: Chloride* 108 mmol/L (96-114); Potassium* 3.5 mmol/L (3.6-5.1); Sodium* 138 mmol/L (135-149)
[2025-02-03 06:28] LABS: Blood Urea Nitrogen* 11 mg/dL (7-30); Creatinine* 0.8 mg/dL (0.5-1.5); Est. Creatinine Clearance* 66.58; Estimated Glomerular Filt Rate 89 ml/min
[2025-02-03 06:29] LABS: Anion Gap 3 mEq/L (7-15); Calcium* 8.6 mg/dL (8.4-10.6); Carbon Dioxide* 27 mmol/L (20-32); Glucose* 98 mg/dL (60-115)
[2025-02-03 06:34] LABS: INR 2.69 (0.91-1.10); Prothrombin Time 29.8 Seconds
[2025-02-03] MEDS: FEXOFENADINE 180 MG TABLET PO (08:42)
[2025-02-03] MEDS: DOXYCYCLINE HYCLATE 100 MG PO (08:42)
[2025-02-03] MEDS: METOPROLOL TARTRATE 25 MG TABLET 100 MG PO (08:42)
[2025-02-03] MEDS: CARBIDOPA LEVODOPA PO ×3 (08:43→20:47)
[2025-02-03] MEDS: MEMANTINE HCL 10 MG TABLET PO ×2 (08:43→20:48)
[2025-02-03] MEDS: SODIUM CHLORIDE 0.9 % (FLUSH) 10 ML SYRINGE 5 ML IVF ×2 (08:46→20:49)
--- NOTE | 2025-02-03 12:58 | PM.IMPN1 ---
Assessment and Plan Assessment and plan (1) Atrial fibrillation with rapid ventricular response: Problem comment: - known history of AFib, on Coumadin and dofetilide chronically. - Presented with RVR 01/29/2025, initially treated with metoprolol IV pushes, then 2 attempts for cardioversion which were unsuccessful. - admitted with IV metoprolol and home dofetilide--> converted --> back in AFIB/RVR on 01/31. Cardizem gtt and push bottomed out blood pressure. Small pushes of IV metoprolol were not effective. -02/01; magnesium and digoxin. aware of risk with dig + doftilide = torsades de pointes. on continuous tele. No echo ordered. -evening of 02/01, in consultation with PharmD, we decided to abandoned the digoxin planned and start oral scheduled metoprolol. 25 mg p.o. q.6 hours. Overnight rate control did improve 02/02: Will increase p.o. metoprolol. Stop IV metoprolol. Continue monitoring on continuous telemetry. Magnesium normal. 02/04: still 110-120 after a brief few hours of rate control. now on 50mg metoprolol bid, trying dilt again. ordered echo. no evidence of ischemia or failure. consider cards consult. Status: Acute (2) Febrile illness: Problem comment: -had fever >101 in first 24 hours of admission. -afebrile since am of 01/31 -Source was thought to be sinusitis. TM's normal. single 1V cxr was completed. limited. all cultures negative. -d/c IV abx on 02/01 and continue oral doxy for sinusitis. more intense workup if fever returns or inflammatory markers keep increasing. -02/02 CRP and Procalcitonin downtrending/neg. clinically improved. afebrile. 02/03 - stopped doxy Status: Acute (3) AMS (altered mental status): Problem comment: - Improving. family declined MR Status: Acute (4) Elevated troponin: Problem comment: - stable, suspect secondary to atrial fibrillation with rapid ventricular rate. downtrending. Status: Acute (5) Sinusitis: Problem comment: - seen on CT head, also possible otitis media with mastoid edema. Dtr notes patient has had trouble with sinusitis his entire life. Due to this finding in the setting of altered mental status, will start antibiotic. Patient has a known penicillin allergy as well as sulfa, will start doxycycline and Vanc. A note that patient is also on chronic dofetilide. Continue cardiac monitoring. 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 Status: Chronic (7) senior living current use of anticoagulant therapy: Problem comment: Indication: Afib Duration: INR goal 2-3, lifelong Status: Chronic (8) Lewy body dementia without behavioral disturbance: Problem comment: Dr Olmstead [facility], 05/2024 Status: Chronic (9) Parkinsonism: Problem comment: Dr Olmstead [facility], 05/2024 Status: Chronic (10) Lives in assisted living facility: Problem comment: [facility] enhanced care Status: Acute Subjective Date Seen: 02/03/25 Interval history: Daily Progress Note - Hospital Medicine Day #: 5 2 of which were in CCU status CC: Afib with RVR, fever, LBD with dementia 24 HOUR UPDATE: seems to have taken a step back in the last 24 hours; after having rate control for a good part of 02/02, more tachy today. weaker; difficult to transfer. Remains on monotherapy with doxycycline for sinusitis - D/C am of 02/03 we abandoned the digoxin idea in lieu of safety profile of metoprolol with Tikosyn vs the digoxin (Dilt had caused hypotension, cardioversion was ineffective) No echo has been completed this hospitalization; last one with cards was in 03/04 Tikosyn typically has controlled his AFIB rate. He is also anticoagulated. Notable Labs, Micro, Rads, Interventions: Vitals are reviewed. He is afebrile. He is off oxygen and on room air. His pulse has been anywhere from 105-120 spending most time between 110-120. Labs reviewed this morning show an improving and stable CBC. INR is down to 2.64. Chemistries are reassuring CRP down trending Magnesium 2.0 Procalcitonin negative. All cultures negative to date. Troponin downtrending Objective: aged; appropriate weight. no distress. coughing a little. Vitals: see above Lungs: no resp distress; tachypnea. Cardiac: irregular; fast. Disposition/Potential discharge - can return to [facility] in the next 48 hours likely. I'd like to maintain CCU level care until HR>100 and no evidence of infection. Today I spent 50minutes seeing the patient, reviewing Expanse and EPIC notes/diagnostics, discussing the care plan with our care time that includes social work, PT/OT, pharmacy, RT, long-term and documenting my impressions and plan in the medical record. Exam Const: Vital Signs, click to edit/add: Vital Signs - 24 hr 02/02/25 13:00 02/02/25 14:00 02/02/25 15:00 Temperature 97.6 F Pulse Rate 89 Pulse Rate [Apical ] 92 80 Pulse Rate [Pulse Oximeter] 80 80 Respiratory Rate 18 18 Blood Pressure [Le ft Arm] 115/96 H Blood Pressure [Ri ght Arm] Pulse Oximetry 92 Oxygen Delivery Me thod Room Air 02/02/25 16:00 02/02/25 16:00 02/02/25 19:00 Temperature 97.9 F Pulse Rate 118 H Pulse Rate [Apical ] Pulse Rate [Pulse Oximeter] 89 89 Respiratory Rate 18 18 Blood Pressure [Le ft Arm] Blood Pressure [Ri ght Arm] 114/87 Pulse Oximetry 94 Oxygen Delivery Me thod Room Air 02/02/25 19:25 02/02/25 23:00 02/02/25 23:30 Temperature 97.6 F 97.8 F Pulse Rate 106 H Pulse Rate [Apical ] Pulse Rate [Pulse Oximeter] 104 H 99 Respiratory Rate 16 16 Blood Pressure [Le ft Arm] Blood Pressure [Ri ght Arm] 157/115 H 136/101 H Pulse Oximetry 97 95 Oxygen Delivery Ma thod Room Air Room Air 02/03/25 01:12 02/03/25 03:20 02/03/25 03:20 Temperature 97.9 F Pulse Rate 114 H Pulse Rate [Apical ] 80 Pulse Rate [Pulse Oximeter] 99 104 H Respiratory Rate 16 18 Blood Pressure [Le ft Arm] Blood Pressure [Ri ght Arm] 144/105 H Pulse Oximetry 95 Oxygen Delivery Ma thod Room Air 02/03/25 05:50 02/03/25 07:00 02/03/25 07:00 Temperature 97.4 F L Pulse Rate 116 H Pulse Rate [Apical ] Pulse Rate [Pulse Oximeter] 96 Respiratory Rate 18 Blood Pressure [Le ft Arm] Blood Pressure [Ri ght Arm] 147/98 H 129/94 H Pulse Oximetry 96 Oxygen Delivery Me thod Room Air 02/03/25 07:00 02/03/25 11:00 Temperature 98 F Pulse Rate Pulse Rate [Apical ] Pulse Rate [Pulse Oximeter] 96 96 Respiratory Rate 18 18 Blood Pressure [Le ft Arm] Blood Pressure [Ri ght Arm] 125/87 Pulse Oximetry 96 Oxygen Delivery Me thod Room Air Labs Labs: Laboratory Results - last 24 hr 02/03/25 05:35 WBC 5.39 RBC 4.70 Hgb 13.9 Hct 42.2 MCV 90 MCH 30 MCHC 33 Plt Count 162 INR 2.69 H Sodium 138 Potassium 3.5 L Chloride 108 Carbon Dioxide 27 Anion Gap 3 L BUN 11 Creatinine 0.8 Estimated Creat Clear 66.58 Estimated GFR 89 Glucose 98 Calcium 8.6
--- NOTE | 2025-02-03 13:10 | CRLHL7_ITS ---
For Patients: As a result of the Cures Act, medical imaging exams and procedure reports are released immediately into your electronic medical record. You may view this report before your referring provider. If you have questions, please contact your health care provider. INDICATION: Atrial fibrillation, rapid ventricular response TECHNIQUE: Chest radiograph 1 view COMPARISON: 01/29/2025 FINDINGS: Mediastinum: The mediastinum is normal in appearance. The heart silhouette is normal in size and morphology. Lung: Both lungs are unremarkable in appearance with small lung volumes. No sign of pleural effusion seen. No pneumothorax is identified. Bone and Soft tissue: Unremarkable for age. IMPRESSION: 1. No acute cardiopulmonary disease is seen. Dictated by Elver Williamson MD @ 02/03/2025 2:30:29 PM Dictated by: Elver Williamson MD @ 02/03/2025 14:30:33 (Electronically Signed)
[2025-02-03] MEDS: dilTIAZem 5 MG/ML inj 10 MG IVP (13:23)
[2025-02-03 14:10] LABS: NT Pro B Type NatriureticPept* 4090 pg/mL (See Note)
[2025-02-03] MEDS: WARFARIN 3 MG TABLET PO (17:55)
--- NOTE | 2025-02-03 19:09 | PC.NURSE ---
Nursing Care Hours:[id number] Pt this shift calm and cooperative. BP monitored frequently after diltiazem treatment. Back to baseline by end of shift. Tele reading sinus arrhythmia. Skin intact. Feeding self meals. Pure wick in place. No c/o pain.
[2025-02-04] VITALS (8 sets, daily range): BP systolic 107–146; BP diastolic 70–99; PULSE 54–71; RESP 16–18; TEMP 36.2–36.4; O2SAT 91–95
[2025-02-04 05:57] LABS: Hematocrit 39.6 % (37.0-53.0); Hemoglobin* 13.2 gm/dL (13.5-17.5); Mean Corpuscular HGB Conc 33 gm/dL (32-36); Mean Corpuscular Hemoglobin 30 pg (26-34); Mean Corpuscular Volume 90 fL (80-100); Red Blood Count 4.42 m/uL (4.30-5.90); White Blood Count* 4.17 K/uL (4.50-11.00)
[2025-02-04 06:17] LABS: Slide Review Reflex No
[2025-02-04 06:25] LABS: INR 3.29 (0.91-1.10); Prothrombin Time 34.7 Seconds
--- NOTE | 2025-02-04 06:51 | PC.NURSE ---
Pt pleasant, alert and oriented to self.?Pt hypertensive, tele reads sinus arrhythmia. PM metoprolol held due to HR in the 70s. Pure wick in place, patent and draining. Repositioned, checked, and changed. Denied pain. Pt in bed, appears to be resting, call light within reach, alarms on.?
[2025-02-04 06:55] LABS: Albumin* 3.0 g/dL (3.3-5.0); Chloride* 107 mmol/L (96-114); Potassium* 3.6 mmol/L (3.6-5.1); Sodium* 139 mmol/L (135-149)
[2025-02-04 06:58] LABS: Anion Gap 5 mEq/L (7-15); Blood Urea Nitrogen* 14 mg/dL (7-30); Carbon Dioxide* 27 mmol/L (20-32); Creatinine* 0.7 mg/dL (0.5-1.5); Est. Creatinine Clearance* 66.58; Estimated Glomerular Filt Rate 93 ml/min
[2025-02-04 06:59] LABS: Calcium* 8.4 mg/dL (8.4-10.6); Glucose* 89 mg/dL (60-115)
[2025-02-04 07:02] LABS: Iron* 59 ug/dL (49-181)
[2025-02-04 07:11] LABS: Percent Iron Saturation 28 % (20-50); Total Iron Binding Capacity 211 ug/dL (261-462)
--- NOTE | 2025-02-04 10:05 | PM.IMPN1 ---
Assessment and Plan Assessment and plan (1) Generalized weakness: Problem comment: -our primary barrier to discharge; no acute issues. Echo, troponin, chest x-ray cultures all reassuring. Likely baseline sent his AFib RVR. 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 - Presented with RVR 01/29/2025, initially treated with metoprolol IV pushes, then 2 attempts for cardioversion which were unsuccessful. - admitted with IV metoprolol and home dofetilide--> converted --> back in AFIB/RVR on 01/31. Cardizem gtt and push bottomed out blood pressure. Small pushes of IV metoprolol were not effective. -02/01; magnesium and digoxin. aware of risk with dig + doftilide = torsades de pointes. on continuous tele. No echo ordered. -evening of 02/01, in consultation with PharmD, we decided to abandoned the digoxin planned and start oral scheduled metoprolol. 25 mg p.o. q.6 hours. Overnight rate control did improve 02/02: Will increase p.o. metoprolol. Stop IV metoprolol. Continue monitoring on continuous telemetry. Magnesium normal. 02/04: still 110-120 after a brief few hours of rate control. now on 50mg metoprolol bid, trying dilt again. ordered echo. no evidence of ischemia or failure. consider cards consult. -resolved; converted 02/03 pm Status: Acute (4) Febrile illness: Problem comment: -had fever >101 in first 24 hours of admission. -afebrile since am of 01/31 -Source was thought to be sinusitis. TM's normal. single 1V cxr was completed. limited. all cultures negative. -d/c IV abx on 02/01 and continue oral doxy for sinusitis. more intense workup if fever returns or inflammatory markers keep increasing. -02/02 CRP and Procalcitonin downtrending/neg. clinically improved. afebrile. 02/03 - stopped doxy Status: Acute (5) AMS (altered mental status): Problem comment: - Improving. family declined MR Status: Acute (6) Elevated troponin: Problem comment: - stable, suspect secondary to atrial fibrillation with rapid ventricular rate. downtrending. Status: Acute (7) Sinusitis: Problem comment: - seen on CT head, also possible otitis media with mastoid edema. Dtr notes patient has had trouble with sinusitis his entire life. Due to this finding in the setting of altered mental status, will start antibiotic. Patient has a known penicillin allergy as well as sulfa, will start doxycycline and Vanc. A note that patient is also on chronic dofetilide. Continue cardiac monitoring. -see notes under febrile illness Status: Acute (8) Atrial fibrillation and flutter: Problem comment: sees tilt wall supervisor q [address] rodríguez / chuck/ manager php / tilt wall supervisor Status: Chronic (9) halfway current use of anticoagulant therapy: Problem comment: Indication: Afib Duration: INR goal 2-3, lifelong Status: Chronic (10) Lewy body dementia without behavioral disturbance: Problem comment: Dr Olmstead [facility], 05/2024 Status: Chronic (11) Parkinsonism: Problem comment: Dr Olmstead [facility], 05/2024 Status: Chronic (12) Lives in assisted living facility: Problem comment: [facility] enhanced care Status: Acute Subjective Date Seen: 02/04/25 Interval history: Daily Progress Note - Hospital Medicine Day #: 6 (2 of which were in CCU status for RVR tx) CC: Afib with RVR, fever, LBD with dementia 24 HOUR UPDATE: He converted to NSR last evening. His rate is now 70's. He tells me this morning I'm optimistic about my strength He at a baseline was standby - 1A prior to hospitalization and now is a heavy 2A. Echo this morning revealed EF 55-60% and NSR, awaiting full report. Prior to converting to NSR, we abandoned the digoxin (rec'd 2 doses IV for the load) idea in lieu of safety profile of metoprolol with Tikosyn vs the digoxin and Tikosyn. Dilt had caused hypotension and cardioversion was ineffective. But fortunately, he converted last night. Tikosyn typically has controlled his AFIB rate. He is also anticoagulated. Notable Labs, Micro, Rads, Interventions: Vitals are reviewed. He converted to NSR last evening. His rate is now 70's. blood pressure stable. Labs reviewed this morning show an improving and stable CBC. INR supra at 3.29 Chemistries are reassuring CRP down trending Magnesium 2.0 Procalcitonin negative. All cultures negative to date. Trop normal CXR last night normal. Objective: aged; appropriate weight. no distress. coughing a little. Vitals: see above Lungs: no resp distress. no audible wheezing. Cardiac: regular Disposition/Potential discharge - can return to [facility] in the next 48 hours likely. now primarily working on strength Today I spent 50minutes seeing the patient, reviewing [facility] and [employer] ([employer] notes/diagnostics, discussing the care plan with our care time that includes social work, PT/OT, pharmacy, RT, prison and documenting my impressions and plan in the medical record. Exam Const: Vital Signs, click to edit/add: Vital Signs - 24 hr 02/03/25 11:00 02/03/25 13:26 02/03/25 13:36 Temperature 98 F Pulse Rate Pulse Rate [Apical ] Pulse Rate [Pulse Oximeter] 96 106 H 89 Respiratory Rate 18 16 Blood Pressure [Ri ght Arm] 125/87 129/116 H 92/61 Pulse Oximetry 96 Oxygen Delivery Me thod Room Air 02/03/25 13:39 02/03/25 13:42 02/03/25 13:45 Temperature Pulse Rate Pulse Rate [Apical ] 84 Pulse Rate [Pulse Oximeter] 77 89 Respiratory Rate Blood Pressure [Ri ght Arm] 99/76 104/64 90/63 Pulse Oximetry Oxygen Delivery Me thod 02/03/25 13:50 02/03/25 13:57 02/03/25 15:00 Temperature Pulse Rate Pulse Rate [Apical ] 106 H Pulse Rate [Pulse Oximeter] 84 94 Respiratory Rate 16 Blood Pressure [Ri ght Arm] 96/71 103/82 Pulse Oximetry Oxygen Delivery Me thod 02/03/25 15:00 02/03/25 15:00 02/03/25 19:00 Temperature 98.5 F 97.6 F Pulse Rate 95 Pulse Rate [Apical ] Pulse Rate [Pulse Oximeter] 83 77 Respiratory Rate 16 16 Blood Pressure [Ri ght Arm] 132/91 H 142/89 H Pulse Oximetry 95 94 Oxygen Delivery Me thod Room Air Room Air 02/03/25 23:00 02/03/25 23:00 02/03/25 23:00 Temperature 97.6 F Pulse Rate 60 Pulse Rate [Apical ] Pulse Rate [Pulse Oximeter] 58 L 58 L Respiratory Rate 16 16 Blood Pressure [facility] 126/80 Pulse Oximetry 93 Oxygen Delivery Me thod Room Air 02/04/25 04:00 02/04/25 07:00 Temperature 97.5 F L 97.1 F L Pulse Rate Pulse Rate [Apical ] Pulse Rate [Pulse Oximeter] 71 60 Respiratory Rate 16 16 Blood Pressure [[facility]] 131/95 H 146/88 H Pulse Oximetry 93 95 Oxygen Delivery Ca thod Room Air Room Air Labs Labs: Laboratory Results - last 24 hr 02/03/25 02/03/25 02/04/25 05:35 13:34 05:31 WBC 4.17 L RBC 4.42 Hgb 13.2 L Hct 39.6 MCV 90 MCH 30 MCHC 33 Plt Count 172 INR 3.29 H Sodium 139 Potassium 3.6 Chloride 107 Carbon Dioxide 27 Anion Gap 5 L BUN 14 Creatinine 0.7 Estimated Creat Clear 66.58 Estimated GFR 93 Glucose 89 Calcium 8.4 Phosphorus 3.3 Magnesium 2.0 Iron 59 TIBC 211 L % Saturation 28 Troponin I 0.03 0.03 C-Reactive Protein 7.3 H NT-Pro-B Natriuret Pep 4090 H Albumin 3.0 L Lab Acknowledgement Test Added
[2025-02-04] MEDS: FEXOFENADINE 180 MG TABLET PO (10:11)
[2025-02-04] MEDS: CARBIDOPA LEVODOPA PO ×3 (10:11→20:49)
[2025-02-04] MEDS: MEMANTINE HCL 10 MG TABLET PO ×2 (10:13→20:48)
[2025-02-04] MEDS: SODIUM CHLORIDE 0.9 % (FLUSH) 10 ML SYRINGE 5 ML IVF (10:14)
[2025-02-04] MEDS: LACTATED RINGERS 500 ML 500 ML IV (11:47)
[2025-02-04] MEDS: WARFARIN 2 MG TABLET 1 MG PO (17:33)
--- NOTE | 2025-02-04 22:20 | PC.NURSE ---
Nursing Care Hours: [id number] Pt this shift calm and cooperative. Alert and oriented to self. No c/o pain, tele reading NSR in the AM and Sinus arrhythmia in evening. DC purewick after getting up to chair and pt making needs known. Marilyn villafana used in AM. After working with PT, Pt has been easy one person assist using walker, gait belt, and pt own shoes. BM on BSC. Shower done.
[2025-02-05] VITALS: PULSE 57; RESP 16
[2025-02-05 04:00] VITALS: BP 135/82; PULSE 55; RESP 16; TEMP 36.2; O2SAT 95
[2025-02-05 06:52] LABS: INR 2.90 (0.91-1.10); Prothrombin Time 31.6 Seconds
[2025-02-05 07:00] VITALS: PULSE 60
--- NOTE | 2025-02-05 07:04 | PC.NURSE ---
[id number]: Pt pleasant, alert and oriented to self.?Pt hypertensive, tele reads sinus arrhythmia. Pure wick in place, patent and draining. Repositioned, checked, and changed. Denied pain. Pt in bed, appears to be resting, call light within reach, alarms on.?
[2025-02-05 07:56] VITALS: BP 140/76; PULSE 60; RESP 18; TEMP 36.7; O2SAT 94
[2025-02-05 08:00] VITALS: PULSE 60; RESP 18
[2025-02-05] MEDS: CARBIDOPA LEVODOPA PO (09:24)
[2025-02-05] MEDS: MEMANTINE HCL 10 MG TABLET PO (09:24)
[2025-02-05] MEDS: FEXOFENADINE 180 MG TABLET PO (09:24)
[2025-02-05] MEDS: SODIUM CHLORIDE 0.9 % (FLUSH) 10 ML SYRINGE 5 ML IVF (09:25)
--- NOTE | 2025-02-05 09:56 | PC.SOCIAL ---
Addendum entered by KRISTIN Armijo 02/05/25 11:55: Prior to discharge, secure emailed discharge orders to Yamilex KUMAR at the [facility] assisted living and was informed by Yamilex of 11:30 pickling grader time. Called dtrCarolyn who and confirmed van pickling grader time and shared by phone information on the Important Message from Medicare. Dtr is pleased with discharge plan for today. rehabilitation caseworker to follow up as needed. Original Note: Discharge planning: Called and spoke with pt's dtr Carolyn. Carolyn is pleased with plan for discharge back to [facility] care today. Dtr is requesting transport at discharge by the assisted living facility van if possible. Secure emailed and called Yamilex at [facility] and awaiting call back to confirm discharge time. rehabilitation caseworker to follow up as needed.
--- NOTE | 2025-02-05 12:35 | PC.NURSE ---
Discharge: Patient pleasant and cooperative, A&O to self and place only. VSS, afebrile. SpO2 maintained above 90% on RA. IV removed with tip intact. D/C via wheelchair to [facility].
--- NOTE | 2025-02-05 15:53 | PM.DS1 ---
DS: Providers Provider Date Seen: 02/05/25 Date of admission: 01/30/25 03:11 Primary care physician: Marli Sauceda MD Admitting Clinician: Vicky Higgins MD Consults: 01/30/25 09:32 Consult to Speech Therapy [CONS] Routine Comment: Reason(s) for Speech Consult:: Speech/Swallowing Eval 02/03/25 10:57 Consult to Occupational Therapy [CONS] Routine Comment: Reason(s) for OT Consult:: Evaluate and Treat Any Restrictions?:: No Restrictions Consult to Physical Therapy [CONS] Routine Comment: Reason(s) for PT Consult:: Inability to Mobilize Any Restrictions?:: No Restrictions Comment: baseline is pivot transfer with assist x1 Attending Physician on discharge: Sandra Coates MD [facility] Date of Discharge: 02/05/25 DS: Diagnosis Discharge Diagnosis (1) Generalized weakness: Status: Acute Problem details: -secondary to loss of atrial kick in AFib RVR. He did have a febrile illness when he arrived but we never found a source. We treated him empirically for sinusitis. -once he converted to sinus he improved quickly -echo unchanged from baseline. Troponin was mildly elevated but normalized. Chest x-ray and cultures were all reassuring. -return to assisted living, enhanced care at [facility] on 02/05 (2) Atrial fibrillation with rapid ventricular response: Status: Acute Problem details: - known history of AFib, on Coumadin and dofetilide chronically. - Presented with RVR 01/29/2025, initially treated with metoprolol IV pushes, then 2 attempts for cardioversion which were unsuccessful. - admitted with IV metoprolol and home dofetilide--> converted --> back in AFIB/RVR on 01/31. Cardizem IVP and gtt --> caused hypotension.. Small pushes of IV metoprolol were not effective. -02/01; magnesium and digoxin. aware of risk with dig + doftilide = torsades de pointes. on continuous tele. -evening of 02/01, in consultation with PharmD, we decided to abandon the digoxin planned and start oral scheduled metoprolol. 25 mg p.o. q.6 hours. Overnight rate control did improve 02/02: Will increase p.o. metoprolol. Stop IV metoprolol. Continue monitoring on continuous telemetry. Magnesium normal. 02/04: still 110-120 after a brief few hours of rate control. now on 100mg metoprolol bid, trying dilt again.no evidence of ischemia or failure. consider cards consult. -resolved; converted 02/03 pm 02/05: strength regained; now in Sinus. discharged without added metoprolol and doftilide monotherapy. (3) Febrile illness: Status: Acute Problem details: -had fever >101 in first 24 hours of admission. -afebrile since am of 01/31 -Source was thought to be sinusitis. TM's normal. single 1V cxr was completed. limited. all cultures negative. -d/c IV abx on 02/01 and continue oral doxy for sinusitis. more intense workup if fever returns or inflammatory markers keep increasing. -02/02 CRP and Procalcitonin downtrending/neg. clinically improved. afebrile. 02/03 - stopped doxy (4) AMS (altered mental status): Status: Acute Problem details: - Improving. family declined MR (5) Elevated troponin: Status: Acute Problem details: - stable, suspect secondary to atrial fibrillation with rapid ventricular rate. downtrending. (6) Sinusitis: Status: Acute Problem details: - seen on CT head, also possible otitis media with mastoid edema. Dtr notes patient has had trouble with sinusitis his entire life. Due to this finding in the setting of altered mental status, will start antibiotic. Patient has a known penicillin allergy as well as sulfa, will start doxycycline and Vanc. A note that patient is also on chronic dofetilide. Continue cardiac monitoring. -see notes under febrile illness (7) longterm current use of anticoagulant therapy: Status: Chronic Problem details: Indication: Afib Duration: INR goal 2-3, lifelong (8) Lewy body dementia without behavioral disturbance: Status: Chronic [facility] (9) Parkinsonism: Status: Chronic Problem details: [facility] (10) Frailty syndrome in geriatric patient: Status: Chronic DS: Summary Hospital Course Hospital Course: FINAL DIAGNOSIS/FOLLOW UP ISSUES: 1. Atrial fib with RVR. Challenging as he was resistant to cardioversion, IV metoprolol and diltiazem. We thought about digoxin and actually he received 2 IV doses. Then the risk with digoxin and his Tikosyn was of concern so we went back to escalating doses of metoprolol. On 02/04 he converted back to normal sinus rhythm. Ultimately discharged on monotherapy of Tikosyn. We continued his Eliquis throughout. No added metoprolol at discharge 2. Febrile illness and weakness: He did have a fever upon presentation of 101 - we never found a source. We presumed sinusitis based on CT. His tympanic membranes were normal. We treated him with IV antibiotics and then a short course of doxycycline. His weakness was likely a combination of both the febrile illness and his AFib RVR. He was back to his baseline by discharge. BRIEF HOSPITAL COURSE: Patient was admitted for 7 days. Synopsis of acute inpatient issues are outlined above. Chronic medical conditions with notable findings outlined above. Essentially he was weak and initially febrile. We worked this up. He was also in AFib RVR which was a challenge to get rate control. He was considered high risk given his Tikosyn therapy. He was observed on telemetry. He ultimately failed cardioversion, initially metoprolol, digoxin and diltiazem. Eventually increasing doses of metoprolol, which was felt to be the safest option, converted him. He actually discharged on Tikosyn monotherapy. His febrile illness was never ultimately narrowed to 1 particular diagnosis. We. We treated for sinusitis. His weakness improved. He converted to sinus rhythm and had a normal rate and blood pressure. Return to assisted living on 02/05. No new meds. DISCHARGE MEDICATIONS: See Reconciled list - SIGNIFICANT CHANGES: No new meds Specific instructions to the patient and follow-up are outlined below. REVIEW OF SYSTEMS No new chest pain or dyspnea Pain controlled No voiding difficulties Tolerating diet challenge PHYSICAL EXAM: CONSTITUTIONAL: Answer simple questions. Oriented to self. GENERAL: Well-developed and above ideal body weight, in no respiratory distress. VITAL SIGNS: see record. HEENT: Sclerae are anicteric. No petechiae. CARDIAC: rhythm is regular. There is no S3 or rub. No harsh murmurs. Extremities show trace edema with symmetrical pulses. PULM: good air entry with no wheeze. NEURO: Baseline flat affect, Parkinson's rigidity SKIN: No rashes, petechiae, concerning changes PSYCHIATRIC: Euthymic. DISPOSITION: [facility] Time spent on discharge 37 minutes. Status at Discharge Functional status at discharge: uses cane/walker Overall status at discharge: patient is progressing back to baseline Time Spent with Patient Time attestation: Total time spent providing and/or coordinating discharge services: Time spent: Greater than 30 minutes Exam Const: Vital Signs, click to edit/add: Vital Signs - 24 hr 02/04/25 16:00 02/04/25 19:00 02/04/25 23:00 Temperature 97.3 F L 97.1 F L Pulse Rate Pulse Rate [Pulse Oximeter] 64 67 57 L Respiratory Rate 16 18 16 Blood Pressure [Le ft Arm] Blood Pressure [Ri ght Arm] 139/84 136/99 H Pulse Oximetry 95 91 Oxygen Delivery Me thod Room Air Room Air 02/04/25 23:00 02/05/25 00:00 02/05/25 04:00 Temperature 97.1 F L Pulse Rate 54 L Pulse Rate [Pulse Oximeter] 57 L 55 L Respiratory Rate 16 16 Blood Pressure [Le ft Arm] 135/82 Blood Pressure [Ri ght Arm] Pulse Oximetry 95 Oxygen Delivery Me thod Room Air 02/05/25 07:00 02/05/25 07:56 02/05/25 08:00 Temperature 98.0 F Pulse Rate 60 Pulse Rate [Pulse Oximeter] 60 60 Respiratory Rate 18 18 Blood Pressure [Le ft Arm] Blood Pressure [Ri ght Arm] 140/76 H Pulse Oximetry 94 Oxygen Delivery Me thod Room Air DS: Data Data Completed and Pending Labs on day of discharge: Labs from last 24 hours 02/05/25 05:50 INR 2.90 H Discharge Plan Discharge Disposition: [facility] Date of Admission: 01/30/25 03:11 Attending Provider on Discharge: Sandra Coates Primary Care Provider: Marli Sauceda Condition: Stable Discharge Medications: Continued dofetilide 250 mcg capsule 250 mcg PO BID carbidopa-levodopa [Sinemet] 10-100 mg tablet 2.5 tab PO TID fexofenadine [Yris Allergy] 180 mg tablet 180 mg PO DAILY warfarin 5 mg tablet 5 mg PO QPM Protocol: Dose Management Condition: Wednesday Dose/Route: 5 mg Instruction: 1 x 5 mg tablet Condition: Wednesday Dose/Route: 5 mg Instruction: 1 x 5 mg tablet Condition: Wednesday Dose/Route: 5 mg Instruction: 1 x 5 mg tablet Condition: Wednesday Dose/Route: 5 mg Instruction: 1 x 5 mg tablet Condition: Dose/Route: 5 mg Instruction: 1 x 5 mg tablet Condition: Wednesday Dose/Route: 5 mg Instruction: 1 x 5 mg tablet Condition: Wednesday Dose/Route: 5 mg Instruction: 1 x 5 mg tablet Protocol Text: Adjustment Start Date: Wednesday12/26/24 INR Value: 3.0 INR Date: 12/26/24 Recheck Date: 01/25/25 polyethylene glycol 3350 [Miralax] 17 gram/dose powder 17 g PO DAILY melatonin 5 mg capsule 5 mg PO QHS memantine 10 mg tablet 10 mg PO BID Qty: 180 3RF Discharge Orders: Discharge Order (Routine); Ordered 02/05/25 Ordered By: Sandra Coates Additional Instructions: 1. No new meds. He converted back to sinus rhthym and thus he usual dose of dofetilide is all he needs. 2. He completed an antibiotic for sinusitis 3. His weakness was attributed to the elevated heart rate (AFIB RVR) and once this resolved, his strength is much improved. 4. His POLST should be reviewed. He was FULL CODE here, but daughter wanted his involved. You may have more up to date paperwork. Activity Level: Activity as Tolerated Discharge Diet: Regular Follow Up Appointments: Marli Sauceda MD [Primary Care Provider, Family Practice] Forms: [facility] Info Instructions Admit to: SNF Discharge Potential: Poor Length of Stay: >90 days Can use facility standing orders?: Yes Code Status: Full Code Rehab Potential: Poor Oxygen: No Urinary Catheter: No Orders are good >30 days: Yes
== END 2025-02-05 11:30 | DRG 309 ==
LOC: ED 01-30 00:55 → MEDSURG 01-30 01:47
PROVIDERS: Family Medicine; Admitting Provider Internal Medicine; Emergency Provider Student in an Organized Health Care Education/Training Program; PCP Family Medicine; Visit Provider Internal Medicine
DX: I48.0 Paroxysmal atrial fibrillation (principal); F02.82 Dementia in other diseases classified elsewhere, unspecified severity, with psychotic disturbance; G31.83 Neurocognitive disorder with Lewy bodies; J01.20 Acute ethmoidal sinusitis, unspecified; I95.89 Other hypotension; R53.1 Weakness; R79.89 Other specified abnormal findings of blood chemistry; I48.92 Unspecified atrial flutter; G20.C Parkinsonism, unspecified; G47.31 Primary central sleep apnea; G47.33 Obstructive sleep apnea (adult) (pediatric); R63.4 Abnormal weight loss; Z79.01 Long term (current) use of anticoagulants; R35.0 Frequency of micturition; I10 Essential (primary) hypertension; R13.10 Dysphagia, unspecified; Z85.46 Personal history of malignant neoplasm of prostate
CPT/HCPCS: 92960; 36415; 70450; 71045; 80048; 80053; 80069; 81001; 82803; 83540; 83550; 83605; 83735; 83880; 84145; 84443; 84484; 85025; 85027; 85610; 86140; 87040; 87081; 87086; 87631; 92526; 92610; 93005; 93306; 97163; 97166; 97530; 97535; 99285; 99291; A9270; J0456; J0696; J1160; J3375; J3475; J3490; J7030; J7050; J7120

== ENCOUNTER 2025-04-10 11:49 | Outpatient (REF) | payer BC, SELFPAY ==
--- OUTSIDE RECORDS SUMMARY | 2021-08-27 07:41 | XMS_ITS | Continuity of Care Document ---
Author Organization [facility] Address [address] [place] [address] Phone Care Team Providers Care Corner Cutter Name Role Phone [facility], [facility] Unavailable Unavailable Allergies, Adverse Reactions, Alerts Substance Reaction Status Criticality Sulfa (Sulfonamide Antibiotics) rash Active No Information PENICILLIN rash Active No Information Medications Medication Instructions Dosage Effective Dates (start - stop) Status Comments Hxlp-Cdem-Amakc 1%/0.5%/.01% OPHTHALMIC DROPS Apply one drop to [...] Diagnoses Date Provider Providers Copied on Encounter [facility], [address] [place], [id number], [place] tel:[phone] [facility] No Information 2 [facility]. [address] [place], [address]. tel:[phone] Referring Provider: Timoteo Zhao, [address] [place], [address] . tel:[phone] [facility], [address] [place], [place], [address], [place] tel:[phone] [facility] No Information 2 [facility]. [address] [place], [address]. tel:[phone] Referring Provider: Timoteo Zhao, [address] [place], [address] . tel:[phone] [facility], [address] [place], [address], [place] tel:[phone] [facility] No Information 9 [facility]. [address] [place], [address]. tel:[phone] Referring Provider: Timoteo Zhao, [address] [place], [address] . tel:[phone] [facility], [address] [place], [address], [place] tel:[phone] [facility] No Information 9 [facility]. [address] [facility], [place], [place], [address]. tel:[phone] Referring Provider: Timoteo Zhao, [address] [place] [address], [address] . tel:[phone] [facility], [address] [place], [place], [address], tel:[phone] [facility] No Information 9 Dave Mahmood. [address] [place] [address], [id number], [place]. tel:[phone] Family History Family Member Type Diagnosis Age At Onset No Information Payers Payer name Insurance type Covered alliance party ID Authoriza tion(s) [facility] [id number] Social History Type Description Quantity Date Captured [...]
--- OUTSIDE RECORDS SUMMARY | 2021-09-16 09:43 | XMS_ITS | Continuity of Care Document ---
Author Organization [facility] Address [address] [place] [address] Phone Care Team Providers Care Flight Test Mechanic Name Role Phone Timoteo Acosta D.O. Unavailable [...] Diagnoses Date Provider Providers Copied on Encounter [facility], [address] [place] [address], [id number], tel:[phone] [facility] No Information Dave Mahmood. [address] [place] [address], [id number], [place]. tel:[phone] [facility], [address] [place] [address], [id number], [place] tel:[phone] [facility] No Information Dave Mahmood. [address] [place] [address], [id number], [place]. tel:[phone] Referring Provider: Cherelle Borja [facility] [address], [place], [address]. tel:[phone] [facility], [address] [place] [address], [id number], [place] tel:[phone] [facility] No Information Dave Mahmood. [address] [place] [address], [id number], [place]. tel:[phone] Referring Provider: Cherelle Borja [facility] [address], [place], [address]. tel:[phone] OFFICE/OUTPATI ENT VISIT, EST [facility], [address] [place] [address], [id number], [place] tel:[phone] [facility] decreased vision (chief complaint) PCO-OSDrusen (degenerative ) of macula, left eye Dave Mahmood. [address] [place] [address], [id number], [place]. tel:[phone] Referring Provider: Cherelle Borja [facility] [address], [place], [address]. tel:[phone] [facility], [address] [place] [address], [id number], tel:[phone] [facility] No Information Dave Mahmood. [address] [place] [address], [id number], . tel:[phone] Referring Provider: Timoteo Zhao, [address] [place] [address], [id number]. tel:[phone] [facility], [address] [place] [address], [id number], tel:[phone] [facility] No Information Dave Mahmood. [address] [place] [address], [id number], [place]. tel:[phone] Referring Provider: Timoteo Zhao, [address] [place] [address], [address] [place] [address]. tel:[phone] OFFICE/OUTPATI ENT VISIT, [facility], [address] [place] [address], [address] [place] [address], tel:[phone] [facility] blurry vision (chief complaint) Cat-combined- ODCat-Pseudop hakia Dave Mahmood. [address] [place] [address], [id number], [place]. tel:[phone] Referring Provider: Timoteo Zhao, [address] [place] [address], [address] [place] [address]. tel:[phone] [facility], [address] [place] [address], [id number], [place] tel:[phone] [facility] No Information Dave Mahmood. [address] [place] [address], [id number], [place]. tel:[phone] Referring Provider: Timoteo Zhao, [address] [place] [address], [id number]. tel:[phone] [facility], [address] [place] [address], [id number], tel:[phone] [facility] No Information Dave Mahmood. [address] [place] [address], [id number], [place]. tel:[phone] Referring Provider: Timoteo Zhao, [address] [place] [address], [id number]. tel:[phone] [facility], [address] [place] [address], [id number], tel:[phone] [facility] No Information Dave Mahmood. [address] [place] [address], [id number], [place]. tel:[phone] Referring Provider: Timoteo Zhao, [address] [place] [address], [id number]. tel:[phone] [facility], [address] [place] [address], [id number], tel:[phone] [facility] No Information Dave Mahmood. [address] [place] [address], [id number], [place]. tel:[phone] Referring [facility]: [facility] [address], [place], [address]. tel:[phone] OFFICE/OUTPATI ENT VISIT, [facility], [address] [place] [address], [id number], [place] tel:[phone] [facility] 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 [address] [place] [address], [id number], [place]. tel:[phone] Referring Provider: Cherelle Borja [facility] [address], [place], [address]. tel:[phone] [facility], [address] [place] [address], [id number], [place] tel:[phone] [facility] No Information Dave Mahmood. [address] [place], [place], [id number], . tel:[phone] Referring Provider: Timoteo Zhao, [address] [place], [address]. tel:[phone] Family History Family Member Type Diagnosis Age At Onset No Information Payers Payer name Insurance type Covered democrat ID Viet dillon(s) [facility] [id number] Social History Type Description Quantity Date Captured [...]
[2025-04-10 12:17] LABS: Chloride* 102 mmol/L (96-114); Potassium* 4.7 mmol/L (3.6-5.1); Sodium* 136 mmol/L (135-149)
[2025-04-10 12:20] LABS: Anion Gap 8 mEq/L (7-15); Blood Urea Nitrogen* 14 mg/dL (7-30); Calcium* 9.0 mg/dL (8.4-10.6); Carbon Dioxide* 26 mmol/L (20-32); Creatinine* 0.8 mg/dL (0.5-1.5); Estimated Glomerular Filt Rate 89 ml/min; Glucose* 165 mg/dL (60-115)
--- OUTSIDE RECORDS SUMMARY | 2025-04-11 00:19 | XMS_ITS | Clinical Summary ---
Author Organization [facility] Address [address] [place] [address] Care Team Providers Care Store Protection Specialist Name Role Phone Unavailable Primary Care Provider Unavailabl e Source Comments Patient records contain information from all sites at [facility]. For routine questions regarding patient records, call [phone] during business hours, M-F 8:00 AM - 5:00 PM Central Time. 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 [address], [place] [phone] Health Maintenance Due Date Last Done Comments Creatinine Level (Kidney Function Test) 1945 Potassium Level 1944 Sodium Level 1944 Fall Risk Screen (Annual) 07/12/2024 COVID-19 Vaccine ( season) 2025 04/17/2024, 04/17/2023, 05/07/2022, Additional history exists Influenza [...] patient's age to complete this topic Insurance [facility]
--- OUTSIDE RECORDS SUMMARY | 2025-04-11 00:19 | XMS_ITS | Data Portability ---
Author Organization [facility]rolo gy, [facility] Address [address] [place] [address] Care Team Providers Care New Vehicle Sales Consultant Name Role Phone [facility] [address] Primary Care Provider Assessment No assessment recorded. [...] By Organization Details Last Modified Time 03/17/2022 [id number] will plan follow up in December next year with PSA. [email or web address] Not available 03/17/2022 14:11:53 12/10/2022 [id number] doing well with undetectable PSA, plan follow up 1 year with PSA [email or web address] Not available 12/10/2022 11:43:14 12/14/2023 [id number] rtc 1 year with PSA. [email or web address] Not available 12/14/2023 11:08:24 Reason for Referral None Reported. Results Created Date Observation Date Name Description Value Unit Range Abnormal Flag Note LastModifiedBy Organization Detail LastModifiedTime Result Notes None recorded. Medical Equipment None Reported. Allergies Allergen ID Allergen Name Allergen Category Reaction Reaction Severity Criticality Documentation Date Start Date Code Code System Note Provider Name and Address Organization Details Recorded Time 629950 Product containin g penicilli n (product) medicatio n Not available Not available Not available 12/10/2022 [address] [facility] 11:31:20 [id number] Substance with sulfonami de structure and antibacte rial mechanism of action (substanc e) medicatio n Not available Not available Not available 12/10/2022 84915 8003 SNOMED Dona Della SHADI joaquin [facility] 11:31:26 Medications Name Sig Start Date [...] Updated DateTime 12/10/2022 185.42 cm 26 kg/m2 40012.7 g Dona Hull SHADI pierre [facility] 12/10/2022 11:31:06 Date Recorded Body height Body mass index (BMI) Body weight Provider Name and Address Organization Details Last Updated DateTime 12/14/2023 185.42 cm 26 kg/m2 92870.7 g Amandeep Knox MD [address], [place], [address], [facility] 12/14/2023 10:57:12 Date Recorded Body height Body mass index (BMI) Body weight Provider Name and Address Organization Details Last Updated DateTime 03/17/2022 185.42 cm 26 kg/m2 [address]68.[address] [facility] 03/17/2022 13:52:15 Social History Question Answer Notes LastModified by Organizat ion Details LastModified Time Tobacco Smoking Status Former Smoker Winston Diane [facility], [facility] 03/17/2022 13:52:26 What Is Your Level Of Caffeine Consumption? Occasional [email or web address] Information not available 12/10/2022 When Did You Quit Smoking? 16+yearssteffany morgan [email or web address] Information not available 12/10/2022 What Was The Date Of Your Most Recent Tobacco Screening? 12/14/2023 [email or web address] Information not available 12/14/2023 Have You Ever Been Counseled For Unhealthy Alcohol Use? No [email or web address] Information not available 12/14/2023 Has Tobacco Cessation Counseling Been Provided? No [email or web address] Information not available 12/10/2022 How Many Days In The Past Year Have You Consumed 5 Or More Drinks? 0 [email or web address] Information not available 12/14/2023 Sex: Unknown Functional Status Question Answer Note LastModified by Organizat ion Details LastModified Time How many times per week do you consume alcohol? 1-2 times per week [email or web address] Information not available 12/10/2022 Do you use any illicit or recreational drugs? No [email or web address] Information not available 12/10/2022 Do you or have you ever used any other forms of tobacco or nicotine? No [email or web address] Information not available 12/10/2022 What is your level of alcohol consumption? Occasional [email or web address] Information not available 12/10/2022 Mental Status None recorded. Family History Relationship Description Onset Age of this Age Resolved Age Notes LastModified by Organization Details LastModified Time Father Family history of malignant neoplasm of oral cavity [email or web address] Not available 12/2021 13:53:34 Medical History Condition Response Sexually Transmitted Infection [...] mL dose 1 completed Amandeep Knox MD [address] [place] [address],[facility] [[email or web address] [address], [place], [address], [facility] 12/14/2023 10:57:18 COVID-19, mRNA, LNP-S, PF, 30 mcg/0.3 mL dose 1 completed Amandeep Knox MD [address] [place] [address],[address], [address], [facility] 12/14/2023 10:57:18 COVID-19, mRNA, LNP-S, PF, 30 mcg/0.3 mL dose 1 completed Amandeep Knox MD [address] [place] [address],[facility] [[email or web address] [address], [place], [address], [facility] 12/14/2023 10:57:19 COVID-19, mRNA, LNP-S, PF, 30 mcg/0.3 mL dose, enrique-sucrose 2 completed Amandeep Knox MD [address] [place] [address],[address], [address], [facility] 12/14/2023 10:57:19 pneumococcal polysaccharide PPV23 0 completed Amandeep Knox MD [address] [place] [address],[facility] [[email or web address] [address], [address], [facility] 12/14/2023 10:57:19 Tdap 4 completed Amandeep Knox MD [address] [place] [address],[facility] [[email or web address] [address], [place], [address], [facility] 12/14/2023 10:57:19 Novel Oynzczdps-[id number], all formulations 0 completed Amandeep Knox MD [address] [place] [address],[facility] [[email or web address]] [address], [place], [address], [facility] 12/14/2023 10:57:19 Pneumococcal conjugate PCV 13 6 completed Amandeep Knox MD [address] [place] [address],[address], [place], [address], [facility] 12/14/2023 10:57:19 Pneumococcal conjugate PCV 13 7 completed Amandeep Knox MD [address] [place] [address],[address], [place], [address], [facility] 12/14/2023 10:57:19 zoster live 0 completed Amandeep Knox MD [address] [place] [address],[address], [place], [address], [facility] 12/14/2023 10:57:19 Influenza, high-dose, trivalent, PF 7 completed Amandeep Knox MD [address] [place] [address],[address], [place], [address], [facility] 12/14/2023 10:57:19 Influenza, high-dose, trivalent, PF 6 completed Amandeep Knox MD [address] [place] [address],[address], [place], [address], [facility] 12/14/2023 10:57:19 Influenza, high-dose, trivalent, PF 8 completed Amandeep Knox MD [address] [place] [address],[address], [place], [address], [facility] 12/14/2023 10:57:19 Influenza, high-dose, trivalent, PF 9 completed Amandeep Knox MD [address] [place] [address],[address], [place], [address], [facility] 12/14/2023 10:57:19 Influenza, high-dose, trivalent, PF 4 completed Amandeep Knox MD [address] [place] [address],[address], [place], [address], [facility] 12/14/2023 10:57:19 Influenza, split virus, trivalent, preservative 0 completed Amandeep Knox MD [address] [place] [address],[address], [place], [address], [facility] 12/14/2023 10:57:19 Influenza, split virus, trivalent, preservative 7 completed Amandeep Knox MD [address] [place] [address],[address], [place], [address], [facility] 12/14/2023 10:57:19 Influenza, split virus, trivalent, preservative 6 completed Amandeep Knox MD [address] [place] [address],[address], [place], [address], [facility] 12/14/2023 10:57:19 Influenza, split virus, trivalent, preservative 5 completed Amandeep Knox MD [address] [place] [address],[address], [place], [address], [facility] 12/14/2023 10:57:19 Influenza, split virus, trivalent, preservative 2 completed Amandeep Knox MD [address] [place] [address],[address], [place], [address], [facility] 12/14/2023 10:57:19 Influenza, split virus, trivalent, preservative 3 completed Amandeep Knox MD [address] [place] [address],[address], [place], [address], [facility] 12/14/2023 10:57:19 Influenza, split virus, trivalent, preservative 8 completed Amandeep Knox MD [address] [place] [address],[address], [place], [address], [facility] 12/14/2023 10:57:19 Influenza, split virus, trivalent, PF 0 completed Amandeep Knox MD [address] [place] [address],[address], [place], [address], [facility] 12/14/2023 10:57:19 Influenza, split virus, trivalent, PF 1 completed Amandeep Knox MD [address] [place] [address],[address], [place], [address], [facility] 12/14/2023 10:57:19 Influenza, split virus, quadrivalent, PF 0 completed Amandeep Knox MD [address] [place] [address],[address], [address], [facility] 12/14/2023 10:57:19 Influenza, split virus, quadrivalent, PF 1 completed Amandeep Knox MD [address] [place] [address],[address], [address], [facility] 12/14/2023 10:57:19 Influenza, split virus, quadrivalent, PF 5 completed Amandeep Knox MD [address] [place] [address],[address], [address], [facility] 12/14/2023 10:57:19 Past Encounters Encounter ID Performer Location Encounter Start Date Encounter Closed Date Diagnosis/Indication Diagnosis SNOMED-CT Code Diagnosis ICD10 Code Diagnosis IMO Codes Diagnosis Note [id number] Amandeep Knox MD [address] [address] 03/17/2022 13:41:31 03/19/2022 16:06:51 Malignant neoplasm of prostate 486519523 C61 s/p XRT and 8 month lupron in 2017. [id number] Amandeep Knox MD [address] [address] 12/10/2022 11:09:53 12/18/2022 17:00:28 Malignant neoplasm of prostate 955303878 C61 s/p XRT and 8 month lupron in 2017. [id number] Amandeep Knox MD [address] [address] 12/14/2023 10:50:05 12/15/2023 15:17:05 Carcinoma of prostate 079212477 C61 undetectab le PSA since 8 month lupron and XRT in 2017 Health Concerns Section Related Observation LastModified by Organization Detai ls LastModified Time None Recorded Concern Status LastModified by Organization Details LastModified Time None Recorded Advance Directives Directive None Recorded Payers Insurance Date Sequence Insurance Name Policy Number Policy Garcia Covered Member ID Garcia Member ID Guarantor Name 04/24/2024 1 [place] [employer] 106 Rohan Carroll [id number] Rohan Carroll 04/24/2024 1 [facility] FEP 106 Rohan Carroll [id number] Rohan Carroll Notes Date Note Type Note Provider Name and Address Organization Details Recorded Time 03/17/2022 text/html hx CaP. had lupron and XRT done in 2017 in [place]. previous patient of Allyssanelly Maloney. had an episode of XRT cystitis maybe about a year ago, none since. had cysto then. PSA been low 0.02-0.03. last checked 12/2021. Amandeep Knox MD [address] [place] [address],[address], [address], [facility] 03/17/2022 14:15:54 12/10/2022 text/html follow up CaP, had lupron and XRT in 2017. PSA last month still undetectable at his local lab. voiding OK, no heme/dysuria. Amandeep Knox MD [address] [place] [address],[address], [place], [address], [facility] 12/10/2022 11:44:03 12/14/2023 text/html PSA 11/19/23: <0.06ng/mL follow up for prostate cancer. hx CaP tx with XRT and 8 month lupron in 2017. voiding OK, had some hematuria after a deep tissue massage a while back. Amandeep Knox MD [address] [place] [address],[address], [place], [address], [facility] 12/14/2023 11:09:20
--- OUTSIDE RECORDS SUMMARY | 2025-04-11 00:19 | XMS_ITS | Clinical Summary ---
Author Organization [facility] Address [address] [place] [address] Care Team Providers Care Stitch Separator Name Role Phone Unavailable Primary Care Provider Unavailabl e Source Comments You are receiving this document as you are listed as the primary care provider,follow-up provider, or the patient has been referred to you for consultation.This is in compliance with the Medicare and[facility] Cent[facility]aid EHR Incentive Program,which states Providers who transition their patient to another setting of careor provider of care or refers their patient to another provider of care shouldprovide summary care record for each transition of care or referral. [facility] Allergies Active Allergy Reactions Criticality Noted Date [...] 11/10/2023 09/15/2023, 01/28/2010 COVID-19 Vaccine ( season) 2025 04/17/2023, 05/07/2022, 11/04/2021, Additional history exists Influenza [...] patient's age to complete this topic Insurance [facility] FEDERAL Member Subscriber Plan / Payer (Ef fective 2015-Present) Name:Rohan Carroll Relation to Subscriber:Self Name:Rohan Carroll Payer ID:[id number] (NAIC) Group ID:[id number] Type:[email or web address] Address: [place] [id number] MEDICARE PART A
--- OUTSIDE RECORDS SUMMARY | 2025-04-11 00:19 | XMS_ITS | Clinical Summary ---
Author Organization [facility] Address [address] [place] [address] Care Team Providers Care Block Sealer Name Role Phone Marli Sauceda MD Primary Care Provider + Allergies Active Allergy Reactions Criticality Noted Date Comments Penicillins Hives,Rash Medium 02/03/2022 Sulfa (Sulfonamide Antibiotics) Rash Medium 12/2015 Medications carbidopa-levodop a, 25-100 mg, (SINEMET 25-100) [...] 12 hours. Patient is due for labs/EKG April 2025 180 Capsule Active Active Problems Problem Noted Date Diagnosed Date Ascending aorta dilatation 04/24/2022 PAF (paroxysmal atrial fibrillation) 04/24/2022 Parkinson disease 04/24/2022 Encounters Date Type Department Care Team Description 04/10/2025 Orders Only [facility] Scanner 1 scan: (1-Ord) [place], MULTIPLE LAB, 04/10/2025 04/08/2025 Orders Only [facility] Scanner 1 scan: (1-Ord) 04/08/2025 04/03/2025 Telephone [facility] [address] [facility] [address] [place] [phone] Kiya Gomes, hogshead inspector Management (Tikosyn/) 02/19/2025 Refill [facility] [address] [facility] [address] [place] [phone] Trish Martinez NP Refill Request (Dofetilide) 02/04/2025 9:00 AM CDT Ancillary Procedure [facility] [address] [place] [address] 02/03/2025 Orders Only [facility] Scanner 1 scan: (1-Ord) [facility], NORMAL ECG, 02/03/2025 02/03/2025 Orders Only [facility] Scanner 1 scan: (1-Ord) [facility], NORMAL ECG, 02/03/2025 02/03/2025 Telephone [facility] [address] [facility] [address] [place] [phone] Kiya Gomes hogshead inspector Management (Tikosyn/) 01/30/2025 Telephone [facility] [address] [place] [address] Cari Vale MD from Last 3 Months Social History [...] series) 11/23/2019 COVID-19 vaccine series ( season) 2025 05/07/2022, 11/04/2021, 04/29/2021, Additional history exists Influenza Vaccine (#1) 2025 Hepatitis B series for 19+ Aged Out N o longer eligible based on patient's age to complete this topic Procedures Procedure Name Priority Date/Time Associated Diagnosis Comments SCAN-LABORATORY REPORT 04/10/2025 12:00 AM CDT SCAN-ELECTROCARDIOG THEA EKG 04/08/2025 12:00 AM CDT ECHO TTE COMPLETE WO CONTRAST Routine 02/04/2025 10:31 AM CDT A-fib (HC) SCAN-ELECTROCARDIOG THEA EKG 02/03/2025 12:00 AM CDT SCAN-ELECTROCARDIOG THEA EKG 02/03/2025 12:00 AM CDT from Last 3 Months Results * SCAN-LABORATORY REPORT (04/10/2025 12:00 AM CDT) us Scanner OTHER Final Result * SCAN-ELECTROCARDIOGRAM EKG (04/08/2025 12:00 AM CDT) Only the most recent of3 resultswithin the time period is included. us Scanner OTHER Final Result * ECHO TTE COMPLETE WO CONTRAST (02/04/2025 10:31 AM CDT) AORTIC VALVE MEAN PG 11 mmHg EJECTION FRACTION 58 % LVEDD 5.2 cm EJECTION FRACTION 55 - 60% Anatomical Region Laterality Modality Ultrasound 02/04/2025 9:20 AM CDT Narrative 02/04/2025 1:13 PM CDT ECHOCARDIOGRAM CRISTIAN BLEDSOE : 1945 79 years Study Date: 02/04/2025 9:20:46 AM Gender: M BP: 146/88 mmHg Height: 185.00 cm BSA: 2.09 m Weight: 85.00 kg Tech: [facility] Referring MD: PREETHI PEREZ Site: [facility] Reading Location: Mobile-IP Patient Location: Inpatient. Procedure: 2D, Color Doppler and Spectral Doppler. Indication for study: Afib Cardiac Rhythm: Regular.Study quality: Fair. Final Impressions: 1. Normal LV size, mildly increased wall thickness, normal global systolic function with an estimated EF of 55 - 60%. 2. Right ventricular cavity size is normal, global systolic RV function is normal. 3. The aortic valve is calcified and trileaflet, mild stenosis and mild regurgitation. The aortic valve peak velocity is 2.2 m/s and the mean gradient is 11 mmHg. 4. Dilated sinus of Valsalva, diameter of 4.4 cm (upper limit of normal for age, sex, and BSA is 4.2 cm*), Height Index 2.39 cm/m. Comparison Compared to prior exam images and report of 02/16/24, there has been no significant change. Chamber Sizes and Function Normal left ventricular size, mildly increased wall thickness, normal global systolic function with an estimated EF of 55 - 60%. No resting regional wall motion abnormality visualized. Left atrial size is normal. Left atrial pressure is normal. Right ventricular cavity size is normal, global systolic RV function is normal. RV wall thickness is normal. The right atrium is normal. Right atrial volume index is 11 ml/m . Right atrial area is 13 cm . The pulmonary artery is of normal size and origin. The sinus of Valsalva is dilated. The ascending aorta is normal sized. Valves, RV Pressures and Diastolic Function The aortic valve is calcified and trileaflet, mild stenosis and mild regurgitation. The mitral valve is sclerotic, trace mitral regurgitation. Normal diastolic function. The tricuspid valve is normal in structure, regurgitation is not evident tricuspid regurgitation. The pulmonic valve is normal. No pulmonary regurgitation. Masses, Effusion, Shunts There is no pericardial effusion. The inferior vena cava is normal sized, respiratory size variation greater than 50%. No left to right shunting was detected by limited color flow Doppler interrogation of the interatrial septum. MEASUREMENTS AND CALCULATIONS 2-D Measurements and LV Function: LVID (d) 5.2 cm LV FS% (2D) 31 % LVID (s) 3.6 cm LVOT diameter 2.7 cm IVS (d) 1.2 cm HR 59 bpm LVPW (d) 1.2 cm LA Vol index 31 ml/m2 Ao Sinus 4.4 cm RA Vol index 11 ml/m2 Ao Sinus ULN 4.2 cm * RA area 13 cm Asc Ao 4.3 cm RV Basal Diam 2.8 cm Asc Ao ULN 4.4 cm * LA 5.4 cm * Input age outside of range, reported values correspond to Age = 79 Diastology: Mitral Tissue Doppler E Peak 0.9 m/s e', Septum 0.07 m/s A Peak 0.5 m/s e', Lateral 0.10 m/s E/A 1.8 E/e' Average 10.64 DT 279 msec Aortic Valve: Vmax 2.2 m/s KAROLINA (V) 2.01 cm AI P 1/2 798 msec VTI 0.49 m KAROLINA (I) 1.86 cm LVOT V max 0.8 m/s Max PG 19 mmHg LVOT VTI 0.16 m Mean PG 11 mmHg SV 92 ml Dim Index 0.33 SV index 44 ml/m CO 5.4 l/min CI 2.6 l/min/m Mitral Valve: MVA 2.7 cm MV P 1/2 81 msec Tricuspid Valve and estimated PA pressures: TAPSE 2.5 cm Pulmonic Valve: PV AT 117 msec . This study was interpreted by an [facility] accredited facility. CC: Med/Surg - IP [facility], [facility] (med records) [facility]. Final Procedure Note Kofi Christie MD - 02/04/2025 ECHOCARDIOGRAM CRISTIAN BLEDSOE : 1945 79 years Study Date: 02/04/2025 9:20:46 AM Gender: M BP: 146/88 mmHg Height: 185.00 cm BSA: 2.09 m Weight: 85.00 kg Tech: [facility] Referring MD: PREETHI PEREZ Site: [facility] Reading Location: Mobile- Patient Location: Inpatient. Procedure: 2D, Color Doppler and Spectral Doppler. Indication for study: Afib Cardiac Rhythm: Regular.Study quality: Fair. Final Impressions: 1. Normal LV size, mildly increased wall thickness, normal globalsystolic function with an estimated EF of 55 - 60%. 2. Right ventricular cavity size is normal, global systolic RV functionis normal. 3. The aortic valve is calcified and trileaflet, mild stenosis and mildregurgitation. The aortic valve peak velocity is 2.2 m/s and the meangradient is 11 mmHg. 4. Dilated sinus of Valsalva, diameter of 4.4 cm (upper limit of normalfor age, sex, and BSA is 4.2 cm*), Height Index 2.39 cm/m. Comparison Compared to prior exam images and report of 02/16/24, there has been nosignificant change. Chamber Sizes and Function Normal left ventricular size, mildly increased wall thickness, normalglobal systolic function with an estimated EF of 55 - 60%. No restingregional wall motion abnormality visualized. Left atrial size is normal.Left atrial pressure is normal. Right ventricular cavity size is normal,global systolic RV function is normal. RV wall thickness is normal. Theright atrium is normal. Right atrial volume index is 11 ml/m . Rightatrial area is 13 cm . The pulmonary artery is of normal size and origin.The sinus of Valsalva is dilated. The ascending aorta is normal sized. Valves, RV Pressures and Diastolic Function The aortic valve is calcified and trileaflet, mild stenosis and mildregurgitation. The mitral valve is sclerotic, trace mitral regurgitation.Normal diastolic function. The tricuspid valve is normal in structure,regurgitation is not evident tricuspid regurgitation. The pulmonic valveis normal. No pulmonary regurgitation. Masses, Effusion, Shunts There is no pericardial effusion. The inferior vena cava is normal sized,respiratory size variation greater than 50%. No left to right shunting wasdetected by limited color flow Doppler interrogation of the interatrialseptum. MEASUREMENTS AND CALCULATIONS 2-D Measurements and LV Function: LVID (d) 5.2 cm LV FS% (2D) 31% LVID (s) 3.6 cm LVOT diameter2.7 cm IVS (d) 1.2 cm HR 59bpm LVPW (d) 1.2 cm LA Vol index 31ml/m2 Ao Sinus 4.4 cm RA Vol index 11ml/m2 Ao Sinus ULN 4.2 cm * RA area 13cm Asc Ao 4.3 cm RV Basal Diam2.8 cm Asc Ao ULN 4.4 cm * LA 5.4 cm * Input age outside of range, reported values correspond to Age = 79 Diastology: Mitral Tissue Doppler E Peak 0.9 m/s e', Septum 0.07 m/s A Peak 0.5 m/s e', Lateral 0.10 m/s E/A 1.8 E/e' Average 10.64 DT 279 msec Aortic Valve: Vmax 2.2 m/s KAROLINA (V) 2.01 cm AI P 1/2 798 msec VTI 0.49 m KAROLINA (I) 1.86 cm LVOT V max 0.8 m/s Max PG 19 mmHg LVOT VTI 0.16 m Mean PG 11 mmHg SV 92 ml Dim Index 0.33 SV index 44 ml/m CO 5.4 l/min CI 2.6 l/min/m Mitral Valve: MVA 2.7 cm MV P 1/2 81 msec Tricuspid Valve and estimated PA pressures: TAPSE 2.5 cm Pulmonic Valve: PV AT 117 msec . This study was interpreted by an [facility] accredited facility. CC: Med/Surg - IP [facility], [facility] (med records) [facility]. Final us Preethi Perez MD ECHO ORD Final Result from Last 3 Months Insurance [facility] [address] [facility] [address] [place] [phone] [facility] FED EMP Care Teams Block Sealer Relationship Specialty Start Date End Date Marli Sauceda MD [address] [place] [address] PCP - General Family Practice 03/13/22
== END 2025-04-10 11:50 | disposition home or self-care (01) ==
LOC: NPINS 11:49
PROVIDERS: PCP Family Medicine; Visit Provider Family Medicine
DX: R05.8 Other specified cough (principal)
CPT/HCPCS: 80048

== ENCOUNTER 2025-07-03 12:30 | Outpatient (REF) | payer BC, SELFPAY ==
--- OUTSIDE RECORDS SUMMARY | 2021-08-27 06:41 | XMS_ITS | Continuity of Care Document ---
Author Organization [facility] Address [address] [place] [address] Phone Care Team Providers Care Cryptologic Technician Name Role Phone [facility] Unavailable Unavailable Allergies, Adverse Reactions, Alerts Substance Reaction Status Criticality Sulfa (Sulfonamide Antibiotics) rash Active No Information PENICILLIN rash Active No Information Medications Medication Instructions Dosage Effective Dates (start - stop) Status Comments Edfi-Dnje-Jebrr 1%/0.5%/.01% OPHTHALMIC DROPS Apply one drop to affected eye(s) four times per day - Active amcinonide 0.1 % topical cream apply by topical route 2 times every day a thin layer to the affected area(s) as needed 0.00 - Active Tikosyn 250 mcg capsule take 1 capsule by oral route 2 times every day 250 MCG - Active Flonase Allergy Relief 50 mcg/actuation nasal spray,suspension spray 1 - 2 spray by intranasal route every day in each nostril as needed 50-100 MCG - Active lisinopril 10 mg tablet take 1 tablet by oral route every day 10 MG - Active Reglan 5 mg tablet take 1 tablet by oral route 3 times every day 30 minutes before meals and at bedtime as needed 5 MG - Active Vitamin D3 2,000 unit capsule - Active triamcinolone acetonide 0.1 % topical cream apply by topical route 2 times every day a thin layer to the affected area(s) as needed 0.00 - Active Coumadin 5 mg tablet take 1 tablet by oral route every day except mon., fri. 5 MG - Active Procedures Procedure Date Laser Capsulotomy Laser Capsulotomy CATARACT SURG W/IOL, 1 STAGE CATARACT SURG W/IOL, 1 STAGE Advance Directives Directive Yes / No Effective Date File Name No Information Encounters Encounter Description Practice Location Reason(s) For Visit Diagnoses Date Provider Providers Copied on Encounter [facility], [address] [place], [id number], [place] tel:[phone] [facility] No Information 2 [facility]. [address] [place], [id number]. tel:[phone] Referring Provider: Timoteo Zhao, [address] [place], [address] . tel:[phone] [facility], [address] [place], [place], [id number], [place] tel:[phone] [facility] No Information 2 [facility]. [address] [place], [id number]. tel:[phone] Referring Provider: Timoteo Zhao, [address] [place], [address] . tel:[phone] [facility], [address] [place], [id number], [place] tel:[phone] [facility] No Information 9 [facility]. [address] [place], [id number]. tel:[phone] Referring Provider: Timoteo Zhao, [address] [place], [address] . tel:[phone] [facility], [address] [place], [id number], [place] tel:[phone] [facility] No Information 9 [facility]. [address] [facility], [place], [place], [id number]. tel:[phone] Referring Provider: Timoteo Zhao, [address] [place] [address], [address] . tel:[phone] [facility], [address] [place], [place], [id number], tel:[phone] [facility] No Information 9 Dave Mahmood. [address] [place] [address], [id number], [place]. tel:[phone] Family History Family Member Type Diagnosis Age At Onset No Information Payers Payer name Insurance type Covered green party ID Authoriza tion(s) [facility] [id number] Social History Type Description Quantity Date Captured Comments Sex Male Smoking Status No Information Chief Complaint And Reason For Visit No Information Reason For Referral Reason For Referral No Information History Of Present Illness Encounter Date Complaint History Of Prese nt Illness No Information Functional Status Date Functional Assessmen t No Information Instructions Date Instruction Additional Infor mation No Information Assessments Type Assessment Date No Information Patient Care Teams Name Effective Dates (start - stop) Status Members No Information
--- OUTSIDE RECORDS SUMMARY | 2021-09-16 08:43 | XMS_ITS | Continuity of Care Document ---
Author Organization [facility] Address [address] [place] [address] Phone Care Team Providers Care Business Mail Entry Clerk Name Role Phone Timoteo Acosta D.O. Unavailable Unavailable Allergies, Adverse Reactions, Alerts Substance Reaction Status Criticality Sulfa (Sulfonamide Antibiotics) Active No Information PENICILLIN Active No Information Medications Medication Instructions Dosage Effective Dates (start - stop) Status Comments Refresh Liquigel 1 % eye liquid gel drops - Active Miralax 17 gram oral powder packet - Active Flonase Sensimist 27.5 mcg/actuation nasal spray,suspension - Active Aricept 5 mg tablet - Active Namenda 5 mg tablet - Active Vitamin D3 10 mcg (400 unit) tablet - Active LISINOPRIL (unknown strength) Not Available - Active TIKOSYN (unknown strength) Not Available - Active COUMADIN (unknown strength) Not Available - Active Procedures Procedure Date Laser Capsulotomy Laser Capsulotomy OFFICE/OUTPATIENT VISIT, EST POSTOP FOLLOW-UP VISIT CATARACT SURG W/IOL, 1 STAGE IOL Master OFFICE/OUTPATIENT VISIT, EST Imprimis PredMoxiNepaf Drops Imprimis PredMoxiNepaf Drops POSTOP FOLLOW-UP VISIT CATARACT SURG W/IOL, 1 STAGE IOL Master OFFICE/OUTPATIENT VISIT, NEW Imprimis PredMoxiNepaf Drops Advance Directives Directive Yes / No Effective Date File Name No Information Encounters Encounter Description Practice Location Reason(s) For Visit Diagnoses Date Provider Providers Copied on Encounter [facility], [address] [place] [address], [id number], tel:[phone] [facility] No Information Dave Mahmood. [address] [place] [address], [id number], [place]. tel:[phone] [facility], [address] [place] [address], [id number], [place] tel:[phone] [facility] No Information Dave Mahmood. [address] [place] [address], [id number], [place]. tel:[phone] Referring Provider: Cherelle Borja [facility] [address], [place], [address]. tel:[phone] [facility], [address] [place] [address], [id number], [place] tel:[phone] [facility] No Information Dave Mahmood. [address] [place] [address], [id number], [place]. tel:[phone] Referring Provider: Cherelle Borja [facility] [address], [place], [address]. tel:[phone] OFFICE/OUTPATI ENT VISIT, EST [facility], [address] [place] [address], [id number], [place] tel:[phone] [facility] decreased vision (chief complaint) PCO-OSDrusen (degenerative ) of macula, left eye Dave Mahmood. [address] [place] [address], [id number], [place]. tel:[phone] Referring Provider: Cherelle Borja [facility] [address], [place], [address]. tel:[phone] [facility], [address] [place] [address], [id number], tel:[phone] [facility] No Information Dave Mahmood. [address] [place] [address], [id number], . tel:[phone] Referring Provider: Timoteo Zhao, [address] [place] [address], [address]. tel:[phone] [facility], [address] [place] [address], [id number], tel:[phone] [facility] No Information Dave Mahmood. [address] [place] [address], [id number], [place]. tel:[phone] Referring Provider: Timoteo Zhao, [address] [place] [address], [address] [place] [address]. tel:[phone] OFFICE/OUTPATI ENT VISIT, [facility], [address] [place] [address], [address] [place] [address], tel:[phone] [facility] blurry vision (chief complaint) Cat-combined- ODCat-Pseudop hakia Dave Mahmood. [address] [place] [address], [id number], [place]. tel:[phone] Referring Provider: Timoteo Zhao, [address] [place] [address], [address] [place] [address]. tel:[phone] [facility], [address] [place] [address], [id number], [place] tel:[phone] [facility] No Information Dave Mahmood. [address] [place] [address], [id number], [place]. tel:[phone] Referring Provider: Timoteo Zhao, [address] [place] [address], [address]. tel:[phone] [facility], [address] [place] [address], [id number], tel:[phone] [facility] No Information Dave Mahmood. [address] [place] [address], [id number], [place]. tel:[phone] Referring Provider: Timoteo Zhao, [address] [place] [address], [address]. tel:[phone] [facility], [address] [place] [address], [id number], tel:[phone] [facility] No Information Dave Mahmood. [address] [place] [address], [id number], [place]. tel:[phone] Referring Provider: Timoteo Zhao, [address] [place] [address], [address]. tel:[phone] [facility], [address] [place] [address], [id number], tel:[phone] [facility] No Information Dave Mahmood. [address] [place] [address], [id number], [place]. tel:[phone] Referring [facility]: [facility] [address], [place], [address]. tel:[phone] OFFICE/OUTPATI ENT VISIT, [facility], [address] [place] [address], [id number], [place] tel:[phone] [facility] 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 [address] [place] [address], [id number], [place]. tel:[phone] Referring Provider: Cherelle Borja [facility] [address], [place], [address]. tel:[phone] [facility], [address] [place] [address], [id number], [place] tel:[phone] [facility] No Information aDve Mahmood. [address] [place], [place], [id number], . tel:[phone] Referring Provider: Timoteo Zhao, [address] [place], [address]. tel:[phone] Family History Family Member Type Diagnosis Age At Onset No Information Payers Payer name Insurance type Covered green party ID Viet dillon(s) [facility] [id number] Social History Type Description Quantity Date Captured Comments Sex Male Smoking Status No Information Chief Complaint And Reason For Visit No Information Reason For Referral Reason For Referral No Information History Of Present Illness Encounter Date Complaint History Of Prese nt Illness decreased vision The 75 year old male presents for evaluation of decreased vision in the right eye and left eye. Pt states he has noticed a decrease in near and distance VA OS > OD the past few months. blurry vision The 73 year old male presents for evaluation of blurry vision in the right. VA has gradually become blurry affecting both distance and near detail. He finds driving at night difficult due to the glare of headlights. blurry vision The 73 year old male presents for evaluation of blurry vision in the left > right. VA has gradually become blurry affecting both distance and near detail. He finds driving at night difficult due to the glare of headlights. 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
[2025-07-03 14:24] LABS: Potassium* 4.5 mmol/L (3.6-5.1)
[2025-07-03 14:27] LABS: Blood Urea Nitrogen* 17 mg/dL (7-30); Creatinine* 0.8 mg/dL (0.5-1.5); Estimated Glomerular Filt Rate 89 ml/min
--- OUTSIDE RECORDS SUMMARY | 2025-07-04 00:21 | XMS_ITS | Data Portability ---
Author Organization [facility], [facility]. [facility] Address [address] [place] [address] Care Team Providers Care [place]ke[place] Operator Name Role Phone [facility] Primary Care Provider Assessment No assessment recorded. Plan of Treatment Reminders Order DateSubmit DateProviderLast Modified ByOrganization DetailsLast Modified TimeDetailsAppointmentsNone recorded.LabNone recorded.ReferralNone recorded. ProceduresNone recorded.SurgeriesNone recorded.ImagingNone recorded.Medication OrdersNone recorded. Patient TargetsNo targets recorded. Patient Instructions Encounter Date Encounter Id Patient Instructions Last Modified By Organization Details Last Modified Time 03/17/2022 [id number] will plan follow up in December next year with PSA. [email or web address] Not available 03/17/2022 14:11:53 12/10/2022 [id number] doing well with undetectable PSA, plan follow up 1 year with PSA Not available 12/10/2022 11:43:14 12/14/2023 [id number] rtc 1 year with PSA. [email or web address] Not available 12/14/2023 11:08:24 Reason for Referral None Reported. Results Created Date Observation Date Name Description Value Unit Range Abnormal Flag Note LastModifiedBy Organization Detail LastModifiedTime Result Notes None recorded. Medical Equipment None Reported. Allergies Allergen ID Allergen Name Allergen Category Reaction Reaction Severity Criticality Documentation Date Start Date Code Code System Note Provider Name and Address Organization Details Recorded Time 562425 Product containing penicillin (product) m edication Not available Not available Not ffkoalzjr51/01/[id number] May null, [facility] Zptmeno9912/10/2022 11:31:63899795Uikvmjcra with sulfonamide structure and antibacterial mechanism of action (substance)medicationNot available Not available Not /01/[id number] May null, SHADI Demarco Shznknz4112/10/2022 11:31:26 Medications Name Sig Start Date Stop Date Status Note LastModified by Organization Details LastModified Time clindamycin HCl 300 mg capsule TAKE 1 CA PSULE BY MOUTH THREE TIMES DAILY UNTIL ALL TAKEN 12/14/2023ompletedNot AvailableNot AvailableNot Availableazithromycin 250 mg icwzei1312/14/2023ompletedNot AvailableNot AvailableNot Availabledonepezil 10 mg tabletTAKE 1 TABLET BY MOUTH EVERY DAYactiveNot AvailableNot AvailableNot Availabledofetilide 250 mcg capsuleactiveNot AvailableNot AvailableNot Available lisinopril 10 mg tabletTAKE 1 TABLET BY MOUTH EVERY DAYactiveNot AvailableNot AvailableNot Availablewarfarin 5 mg tabletTAKE 1 TABLET BY MOUTH DAILYactiveNot AvailableNot AvailableNot Availablecarbidopa 25 mg-levodopa 100 mg tabletTAKE 3 TABLETS BY MOUTH THREE TIMES DAILYactiveNot AvailableNot AvailableNot Available fluticasone propionate 50 mcg/actuation nasal spray,suspensionSHAKE LIQUID AND USE 2 SPRAYS IN EACH NOSTRIL EVERY DAYactiveNot AvailableNot AvailableNot Availableipratropium bromide 21 mcg (0.03 %) nasal sprayINHALE 2 SPRAYS IN EACH NOSTRIL THREE TIMES DAILY AS12/14/2023ompletedNot AvailableNot AvailableNot Availablememantine 10 mg tabletTAKE 1 TABLET BY MOUTH TWICE DAILYactiveNot AvailableNot AvailableNot AvailableBinaxNOW COVID-19 Ag Self Test kitTEST DIRECTED TODAY12/14/2023ompletedNot AvailableNot AvailableNot AvailableLagevrio 200 mg capsule (EUA)TAKE 4 CAPSULES BY MOUTH TWICE DAILY FOR 5 DAYS12/14/2023 completedNot AvailableNot AvailableNot Available Vitals Date Recorded Body height Body mass index (BMI) Body weight Provider Name and Address Organization Details Last Updated DateTime 12/10/2022 185.42 cm 26 kg/m2 29922.7 g Dona Hull [facility] 12/10/2022 11:31:06 Date Recorded Body height Body mass index (BMI) Body weight Provider Name and Address Organization Details Last Updated DateTime 12/14/2023 185.42 cm 26 kg/m2 27288.7 g Amandeep Knox MD [address], [place], [address], [facility] 12/14/2023 10:57:12 Date Recorded Body height Body mass index (BMI) Body weight Provider Name and Address Organization Details Last Updated DateTime 03/17/2022 185.42 cm 26 kg/m2 19193.7 g Camtelma Benedicto [facility] 03/17/2022 13:52:15 Social History Question Answer Notes LastModified by Organization D etails LastModified Time Tobacco Smoking Status Former Smoker [facility], [facility] Wuoilog1303/17/2022 13:52:26What Is Your Level Of Caffeine Consumption?Ajtgebkwewoldw180Reoomfbpigl not zpkidbfpn09/01/2023When Did You Quit Smoking?16+qdafmtiozxwlqiehyjchuohvzlu804Krstyfegwte not available 12/10/2022What Was The Date Of Your Most Recent Tobacco Screening?12/14/2023 aczqozdo25Nabkgrbehss not /04/2024Have You Ever Been Counseled For Unhealthy Alcohol Use?Ugjyvgayls75Jbxitdctnfl not ztgkrhynw19/04/2024Has Tobacco Cessation Counseling Been Provided?Byuing407Bfuifywhykd not uwzsyxvok89/01/2023 How Many Days In The Past Year Have You Consumed 5 Or More Drinks?5perafnto54 Information not /04/2024 Sex: Unknown Functional Status Question Answer Note LastModified by Organization D etails LastModified Time How many times per week do you consume alcohol? 1-2 times per week wquf278Bkxpkqkcnad not qmlinkflc70/01/2023o you use any illicit or recreational drugs?Rykrsh314Okdyeamdmug not eyqnmhmxl12/01/2023o you or have you ever used any other forms of tobacco or nicotine?Utcnxf986Vytibvltiqs not available 12/10/2022What is your level of alcohol consumption?Jvitmuckzdoste051Hcwxgyfvcbk not dngvcnull46/01/2023 Mental Status None recorded. Family History Relationship Description Onset Age of this Age Resolved Age Notes LastModified by Organization Details LastModified Time Father Family history of malignant neop lasm of oral cavity cflinckNot /06/2022 13:53:34 Medical History Condition Response Diabetes N Sexually Transmitted Infection N Bleeding Disorder N Other N High Blood Pressure Y Kidney Stones N High Cholesterol N GERD/Acid Reflux N Heart Disease N Cancer Y Lung Disease N Depression N Immunizations Vaccine Type Date Status Note Provider Nam e and Address Organization Details Recorded Time COVID-19, mRNA, LNP-S, PF, 30 mcg/0.3 mL dose 08/15/19 21 completed Amandeep Knox MD [address] [place] [address], [address] [place] [address], [facility]12/14/2023 10:57:18COVID-19, mRNA, LNP-S, PF, 30 mcg/0.3 mL dose1completeShital Knox MD [address] [place] [address], [address] [place] [address], [facility]12/14/2023 10:57:18COVID-19, mRNA, LNP-S, PF, 30 mcg/0.3 mL dose1completeShital Knox MD [address] [place] [address],[address], [address] [place] [address], [facility]12/14/2023 10:57:19COVID-19, mRNA, LNP-S, PF, 30 mcg/0.3 mL dose, enrique-nkuhdoe13/26/2022completedTalfredo Knox MD [address] [place] [address], [address] [place] [address], [facility]12/14/2023 10:57:19pneumococcal polysaccharide PPV23 01/28/2010completFabrice Knox MD [address] [place] [address],[address], [address] [place] [address], [facility]12/14/2023 10:57:62Vzrf3208/21/2013completFabrice Knox MD [address] [place] [address],[place] [address], [facility]12/14/2023 10:57:19Novel Hysksvewh-W2B6-36, all fqvlekbbrizk07/12/2010comJose Angel Knox MD [address] [place] [address], [place], [address], [facility] Dhnnrpe8612/14/2023 10:57:19Pneumococcal conjugate PCV 13008/28/2015 Alfred Knox MD [address] [place] [address],[address], [place], [address], [facility] Wbqosjc5112/14/2023 10:57:19Pneumococcal conjugate PCV 13008/28/2016 Alfred Knox MD [address] [place] [address],[place] [address], [place], [address], [facility]/14/2023 10:57:19zoster live01/28/2010completFabrice Knox MD [address] [place] [address],[address], [address], [facility] Cfbbmvr0112/14/2023 10:57:19Influenza, high-dose, trivalent, PF 03/30/2017completFabrice Knox MD [address] [place] [address],[address], [address], [facility]12/14/2023 10:57:19Influenza, high-dose, trivalent, PF 04/15/2016completFabrice Knox MD [address] [place] [address],[address], [address], [facility] Olhckij5712/14/2023 10:57:19Influenza, high-dose, trivalent, PF 04/26/2018completFabrice Knox MD [address] [place] [address],[address], [address], [facility] Erofqsk7812/14/2023 10:57:19Influenza, high-dose, trivalent, PF 05/10/2019completFabrice Knox MD [address] [place] [address],[address] [address], [facility] Cpqtxpw9912/14/2023 10:57:19Influenza, high-dose, trivalent, PF 05/28/2014completFabrice Knox MD [address] [place] [address],[address], [address], [facility] Euqhkwt4812/14/2023 10:57:19Influenza, split virus, trivalent, rgmkvqznxbyq20/25/2010comJose Angel Knox MD [address] [place] [address],[address] [place] [address], [address], [facility] Vjntwrk3712/14/2023 10:57:19Influenza, split virus, trivalent, uwbpmmpgcnvv49/29/2007comJose Angel Knox MD [address] [place] [address],[address], [address] [place] [address], [facility] Bdfegmj9912/14/2023 10:57:19Influenza, split virus, trivalent, ysmfqayfwxai31/03/2006comJose Angel Knox MD [address] [place] [address],[address], [address], [facility] Ndduamv1612/14/2023 10:57:19Influenza, split virus, trivalent, vwjgfimieens44/23/2005comJose Angel Knox MD [address] [place] [address],[address], [address], [facility] Dtfqgme9712/14/2023 10:57:19Influenza, split virus, trivalent, rqrviujpcrxp85/05/2012comJose Angel Knox MD [address] [place] [address],[address] [place] [address], [address], [facility] Jlmxgdj3912/14/2023 10:57:19Influenza, split virus, trivalent, /09/2013comJose Angel Knox MD [address] [place] [address],[address] [place] [address], [address], [facility] Vybnggh0012/14/2023 10:57:19Influenza, split virus, trivalent, yfxaloanjehu61/20/2008comJose Angel Knox MD [address] [place] [address],[address], [place], [address], [facility] Bmebzgk7312/14/2023 10:57:19Influenza, split virus, trivalent, PF 07/23/2009comJose Angel Knox MD [address], [place], [address], [facility] Kyrrxnx6912/14/2023 10:57:19Influenza, split virus, trivalent, PF 03/26/2011comJose Angel Knox MD [address] [place] [address],[address], [place], [address], [facility] Tccthhi0712/14/2023 10:57:19Influenza, split virus, quadrivalent, PF03/12/2020completFabrice Knox MD [address], [place], [address], [facility] Vstmmtt5112/14/2023 10:57:19Influenza, split virus, quadrivalent, PF1completedTalfredo Knox MD [address] [place] [address],[address], [place], [address], [facility] Pxuvqnf8512/14/2023 10:57:19Influenza, split virus, quadrivalent, PF07/02/2015comJose Angel Knox MD [address] [place] [address],[address], [place], [address], [facility] Gragzeh5012/14/2023 10:57:19 Past Encounters Encounter ID Performer Location Encounter Start Date Encounter Closed Date Diagnosis/Indication Diagnosis SNOMED-CT Code Diagnosis ICD10 Code Diagnosis IMO Codes Diagnosis Note [id number] [facility] [address] [address] 03/17/2022 13:41:31 03/19/2022 16:06:51 Malignant neoplasm of prostate 332298330 C61 s/p XRT and 8 month lupron in [id number] Hogan_Sandeep [address] [address] 12/10/2022 11:09:5306 17:00:28Malignant neoplasm of ixctcdok910181029E58 s/p XRT and 8 month lupron in [id number] [address] [place] [address] 12/14/2023 10:50:0506 15:17:05Carcinoma of xypmeoud167370970B67 undetectable PSA since 8 month lupron and XRT in 2017 Health Concerns Section Related Observation LastModified by Organization Detai ls LastModified Time None Recorded Concern Status LastModified by Organization Details LastModified Time None Recorded Advance Directives Directive None Recorded Payers Insurance Date Sequence Insurance Name Policy Number Policy Garcia Covered Member ID Garcia Member ID Guarantor Name 04/24/2024 1 [place] [employer] 106 Fred pritchett Sobeida Carroll [id number] Rohan [id number] - [id number] [id number] Ellickson Notes Date Note Type Note Provider Name and Address Orga nization Details Recorded Time 03/17/2022 text/html hx CaP. had lupron and XRT done in 2017 in [place]. previous patient of Allyssa Maloney. had an episodeof XRT cystitis maybe about a year ago, none since. had cysto then. PSA been low 0.02-0.03. last checked 12/2021.Amandeep Knox MD [address] [place] [address],[address] [place] [address], [address], [facility] Zktnfwu3503/17/2022 14:15:54012/10/2022text/html follow up CaP, had lupron and XRT in 2017. PSA last month still undetectable at his local lab. voiding OK, no heme/dysuria.Amandeep Knox MD [address] [place] [address],[address], [place], [address], [facility] Rydecri1312/10/2022 11:44:0306text/html PSA 11/19/23: <0.06ng/mL follow up for prostate cancer. hx CaP tx with XRT and 8 month lupron in 2017. voiding OK, had some hematuria after a deep tissue massage a while back.Amandeep Knox MD [address] [place] [address],[address], [place], [address], [facility] Unrqexn5912/14/2023 11:09:20
--- OUTSIDE RECORDS SUMMARY | 2025-07-04 00:22 | XMS_ITS | Clinical Summary ---
Author Organization [email or web address] [facility] Address [address] [place] [address] Care Team Providers Care Liquefied Petroleum Gasfitter Name Role Phone Marli Sauceda MD Primary Care Provider + Allergies Active AllergyReactionsCriticalityNoted DateCommentsPenicillinsHives,RashMedium 02/03/2022ulfa (Sulfonamide Antibiotics)TlqsEhhfhm97/06/2016 Medications MedicationSigDispense QuantityRefillsLast FilledStart DateEnd DateStatus carbidopa-levodopa, 25-100 mg, (SINEMET 25-100) 25-100 mg tablet Take 1 Tablet by mouth three times daily.04/14/2022ctive cholecalciferol (VITAMIN D3) 1,000 unit tablet Take 25 mcg by mouth once daily.Active donepeziL (ARICEPT) 10 mg tablet Take 10 mg by mouth at bedtime.08/26/2021ctive ipratropium (ATROVENT NASAL) 21 mcg (0.03 %) nasal spray Inhale 2 Sprays into affected nostril(s) three times daily. As nbdbuz4008/26/2021 Active lisinopriL (PRINIVIL; ZESTRIL) 10 mg tablet Take 10 mg by mouth once daily.08/26/2021ctive memantine (NAMENDA) 10 mg tablet Take 10 mg by mouth two times daily.08/26/2021ctive warfarin (Jantoven) 5 mg tablet Take 5 mg by mouth once daily.11/04/2021ctive dofetilide (TIKOSYN) 250 mcg capsule Indications:Paroxysmal atrial fibrillation (HC)Take 1 Capsule (250 mcg) by mouth every 12 hours. Patient is due for labs/EKG Jun 2025 180 Capsule 5Active dofetilide (TIKOSYN) 250 mcg capsule Indications:Paroxysmal atrial fibrillation (HC)Take 1 Capsule (250 mcg) by mouth every 12 hours. Patient is due for labs/EKG April 2025 180 Capsule Discontinued(Reorder (E-cancel not sent)) Active Problems ProblemNoted DateDiagnosed DateAscending aorta ivoyvamomg96/14/2022AF (paroxysmal atrial fibrillation)04/24/2022arkinson zmfydzt7804/24/2022 Encounters DateTypeDepartmentCare YivrLbtoklcsxju41/05/2025Telephone [facility] [address] [place] [address] Trish Martinez NP Tikosyn kxqdeyi5106/12/2025Refill [facility] [address] [place] [address] Trish Martinez NP Refill Request (tikosyn)05/10/2025 11:30 AM CDTOffice Visit [facility] & [address] [address] Shyann Douglas MD 04/10/2025Orders Only [facility] Scanner 1 scan: (1-Ord) [facility], 5004/10/2025Orders Only [facility] Scanner 1 scan: (1-Ord) [facility], 5004/08/2025Orders Only [facility] Scanner 1 scan: (1-Ord) 04/08/2025from Last 3 Months Social History Tobacco UseTypesPacks/DayYears UsedDateSmoking Tobacco: Never AssessedSocial ConnectionsAnswerDate RecordedFrequency of Communication with Friends and Family Not on file04/24/2022ex and Gender InformationValueDate RecordedSex Assigned at BirthNot on fileLegal EaiAyvj58/ 1:09 PM CDTGender IdentityNot on file Sexual OrientationNot on file Last Filed Vital Signs Vital SignReadingTime TakenCommentsBlood Xvxzmisq435/7211 3:20 PM BRICK PAVER Wmjtk3027 3:20 PM CSTTemperature--Respiratory Rate--Oxygen Fbzatfamed44% 05/17/2025 3:20 PM CSTInhaled Oxygen Concentration--Layqdn16.5 kg (184 lb 2 oz) 05/17/2025 3:20 PM AWWVmjhww782.4 cm (6' 1)05/17/2025 3:20 PM CSTBody Mass Index24.29107/17/2024 3:20 PM BRICK PAVER Plan of Treatment Health MaintenanceDue DateLast DoneCommentsTetanus wjrqslf7911/23/1955Depression screening for age 12+1956Pneumococcal series for age 50+ (1 of 2 - PCV) 11/23/1963Zoster (shingles) series for age 50+ (1 of 2)1994RSV vaccine for adults or (1 - 1-dose 75+ series)11/23/2019Influenza Vaccine (#1) 5COVID-19 vaccine series (2024- season), 04/17/2024, 05/07/2022, Additional history existsBMI (ht and wt on same day) for age 18+Hepatitis B series for 19+Aged OutNo longer eligible based on patient's age to complete this topic Procedures Procedure NamePriorityDate/TimeAssociated DiagnosisCommentsSCAN-LABORATORY ESGOJJ2304/10/2025 12:00 AM CDT SCAN-LABORATORY YFAOXG2904/10/2025 12:00 AM CDT SCAN-ELECTROCARDIOGRAM EKG004/08/2025 12:00 AM CDTfrom Last 3 Months Results * SCAN-LABORATORY REPORT (04/10/2025 12:00 AM CDT) Only the most recent of2 resultswithin the time period is included. Narrative Authorizing ProviderResult TypeResult StatusScannerOTHERFinal Result * SCAN-ELECTROCARDIOGRAM EKG (04/08/2025 12:00 AM CDT) Narrative Authorizing ProviderResult TypeResult StatusScannerOTHERFinal Result from Last 3 Months Insurance * Guarantor: Rohan Carroll TypeRelation to PatientDate of BirthPhone Billing AddressPersonal/MelakxWdxk60/14/1946 [facility] [address] [facility] [address] [place] [address] Care Teams Team MemberRelationshipSpecialtyStart DateEnd Date Marli Sauceda MD [address] [place] [address] PCP - GeneralFamily Practice03/13/22
--- OUTSIDE RECORDS SUMMARY | 2025-07-04 00:22 | XMS_ITS | Clinical Summary ---
Author Organization [facility] Address [address] [place] [address] Care Team Providers Care Lithographer Apprentice Name Role Phone Unavailable Primary Care Provider Unavailabl e Source Comments Patient records contain information from all sites at [facility]. For routine questions regarding patient records, call [phone] during business hours, M-F 8:00 AM - 5:00 PM Central Time. Record requests for emergency care only can be directed to [phone] at any time.[facility] Allergies Active AllergyReactionsCriticalityNoted DateCommentsPenicillin GHives (Reselect Reaction)02/03/2022ulfa (Sulfonamide Antibiotics)Rash02/03/2022 Medications MedicationSigDispense QuantityRefillsLast FilledStart DateEnd DateStatus dofetilide (TIKOSYN) 250 mcg capsule Take 250 mg by mouth 2 (two) times a day.12/26/2021ctive memantine (NAMENDA) 10 mg tablet TAKE 1 TABLET (10 MG) BY MOUTH TWICE DAILY.11/17/2021ctive lisinopriL (PRINIVIL,ZESTRIL) 10 mg tablet Take 10 mg by mouth daily.01/19/2022ctive Jantoven 5 mg tablet Take 5 mg by mouth daily.01/29/2022ctive DME CPAP BiPAP autoSV Advanced or VPAP adapt SV auto Max EPAP: 15 Min EPAP: 7 Max PS: 15 Min PS: Active DUCODYL, BISACODYL, ORAL Take by mouth.Active calcitonin, salmon, (Miacalcin) 200 unit/actuation nasal spray Administer 200 Units into one nostril daily.07/15/2024Active fexofenadine (Ryis) 30 mg/5 mL suspension Take 30 mg by mouth daily.Active acetaminophen (TylenoL) 500 mg tablet Take 500 mg by mouth every 6 (six) hours as needed for pain.Active carbidopa-levodopa (Sinemet) 25-100 mg per tablet Take 2.5 tablets by mouth 3 (three) times a day. 675 tablet 4Active Active Problems ProblemNoted DateDiagnosed DateMajor Neurocognitive Disorder Due To Lewy Body Without Behavior Guutzsvnxhs24/27/2024Other Specified Abnormal Immunological Findings In Serum05/17/2023 Overview (05/17/2023): negative quant RNA Dyskinesia Nnmioqjvu90/06/2023 Overview (05/17/2023): uses Reglan on a PRN basis Primary Central Sleep Apnea3Primary Malignant Neoplasm Of Prostate 3Parkinsonism Egpaszutjtv61/04/2022Dementia Multiple Infarction 2Apnea Sleep Xavglwmrnmd02/27/2022Deficiency Vitamin D02Spinal Stenosis Lumbar Region Without Neurogenic Xnjggccnwofj15/11/2019Atrial Fibrillation Phfhiawssgo92/11/2017Hypertension Essential Lxxfhpo8010/21/2016 Aneurysm Aortic Ascending Without Vvzlqtj4406/11/2016 Overview (05/17/2023): 4.[address] [facility] Social History Tobacco UseTypesPacks/DayYears UsedDateSmoking Tobacco: PdvlbkDxqxvsvnhk7Jdqg: 1979Smokeless Tobacco: Never Tobacco Cessation:Counseling Given: Not Answered Sex and Gender InformationValueDate RecordedSex Assigned at BirthNot on file Legal NwfIutf5701/27/2022 11:39 AM CDTGender IdentityNot on fileSexual Orientation Not on file Last Filed Vital Signs Vital SignReadingTime TakenCommentsBlood Pvwtiems80/6806/07/2024 12:41 PM SEED POTATO CUTTER Hicxs093906/07/2024 12:41 PM ZPJEfauxjmhxdq60.8 ??C (98.2 ??F)05/17/2023 1:44 PM CSTRespiratory Rate--Oxygen Saturation--Inhaled Oxygen Concentration--Lknsdz16.9 kg (174 lb)06/07/2024 12:41 PM OXQCpqyfq703 cm (6' 0.44)04/15/2023 2:57 PM CDT Body Mass Index23.311 2:57 PM CDT Plan of Treatment Health MaintenanceDue DateLast DoneCommentsCreatinine Level (Kidney Function Test)1944Office Visit for Blood Pressure Check / Re-check1944 Potassium Level1944Sodium Level1944Fall Risk Screen (Annual) 07/12/2024OVID-19 Vaccine ( season), 04/17/2023, 05/07/2022, Additional history existsInfluenza Vaccine (#1), 05/04/2023, 04/13/2022, Additional history existsDTaP,Tdap,and Td Vaccines (3 - Td or Tdap), 08/21/2013Pneumococcal vaccine (50+ years) Bpunifacd55/17/2017, 08/28/2015, 01/28/2010RSV vaccine - (32-36 weeks) or 50+ uilnkYmpzhreqq89/07/2023Zoster PjvpvbjiEkbranozi84/07/2024, 09/15/2023, 01/28/2010IPV VaccinesAged OutNo longer eligible based on patient's age to complete this topic Insurance Dr [address] [place] [address]
--- OUTSIDE RECORDS SUMMARY | 2025-07-04 00:22 | XMS_ITS | Clinical Summary ---
Author Organization [facility] Address [address] [place] [address] Care Team Providers Care Microelectronics Technician Name Role Phone Unavailable Primary Care Provider Unavailabl e Source Comments You are receiving this document as you are listed as the primary care provider,follow-up provider, or the patient has been referred to you for consultation.This is in compliance with the Medicare andMedicaid EHR Incentive Program,which states Providers who transition their patient to another setting of careor provider of care or refers their patient to another provider of care shouldprovide summary care record for each transition of care or referral. [facility] Allergies Active AllergyReactionsCriticalityNoted DateCommentsPenicillinsHives,RashHigh 2Sulfa QubzkrispmaTwppDfjqpf80/06/2016 Medications MedicationSigDispense QuantityRefillsLast FilledStart DateEnd DateStatus dofetilide (TIKOSYN) 250 MCG capsule Take 1 Capsule (250 mcg) by mouth two times a day.3Active donepezil (ARICEPT) 10 MG tablet Take 1 Tablet (10 mg) by mouth daily.08/26/2023ctive memantine (NAMENDA) 10 MG tablet Take 1 Tablet (10 mg) by mouth two times a day.08/12/2023ctive lisinopril (ZESTRIL) 10 MG tablet Take 1 Tablet (10 mg) by mouth daily.09/15/2023ctive Magnesium Hydroxide (DULCOLAX OR) Take 2 Tablets by mouth daily.Active carbidopa-levodopa (SINEMET) 25-100 MG tablet Take 3 Tablets by mouth three times a day. 6:30a, 11a, 5p 810 Tablet ctive acetaminophen 500 MG tablet Take 1-2 Tablets (500-1,000 mg) by mouth every 4 hours as needed for Pain. Maximum acetaminophen dose is 4000 mg in 24 hoursActive warfarin 5 MG tablet Managed by outside facility/abzzrrnt81/24/2024ctive Social History Tobacco UseTypesPacks/DayYears UsedDateSmoking Tobacco: Never AssessedSex and Gender InformationValueDate RecordedSex Assigned at BirthNot on fileLegal Sex Male10/05/2022 11:12 AM CDTGender IdentityNot on fileSexual OrientationNot on file Last Filed Vital Signs Vital SignReadingTime TakenCommentsBlood Iaaxznnq020/67009/24/2023 11:16 AM CDT Ppdco222209/24/2023 11:16 AM CDTTemperature--Respiratory Rate--Oxygen Saturation-- Inhaled Oxygen Concentration--Xdunrz72.4 kg (188 lb 3.2 oz)09/24/2023 11:12 AM CDTshoes ehVopink870.4 cm (6' 1)09/24/2023 11:12 AM CDTshoes onBody Mass Index 24.8309/24/2023 11:12 AM CDT Plan of Treatment Health MaintenanceDue DateLast DoneCommentsAdult Preventive Visit1962RSV Vaccine (1 - 1-dose 75+ series)11/23/2019Zoster/Shingles Vaccine (3 of 3) /12/2023, 01/28/2010COVID-19 Vaccine (2024- season)2025 04/17/2023, 05/07/2022, 11/04/2021, Additional history existsInfluenza Vaccine (#1), 04/13/2022, 03/25/2021, Additional history exists DTaP/Tdap/Td Vaccine (3 - Tdap)/12/2023, 08/21/2013, 12/26/2002 Pneumococcal Vaccine 50+ CvaAcidykcxy13/17/2017, 08/28/2015, 01/28/2010HepA VaccineAged OutNo longer eligible based on patient's age to complete this topic HepB VaccineAged OutNo longer eligible based on patient's age to complete this topicHib VaccineAged OutNo longer eligible based on patient's age to complete this topicMCV4 VaccineAged OutNo longer eligible based on patient's age to complete this topicMeningococcal B VaccineAged OutNo longer eligible based on patient's age to complete this topic Insurance * Guarantor: Rohan CarrollAccount TypeRelation to PatientDate of BirthPhone Billing AddressPersonal/JhybgjSlwm68/14/1946 [phone] [facility] [place] [address]
== END 2025-07-03 12:31 | disposition home or self-care (01) ==
LOC: NPINS 12:30
PROVIDERS: PCP Family Medicine; Visit Provider Family Medicine
DX: I48.91 Unspecified atrial fibrillation (principal); Z51.81 Encounter for therapeutic drug level monitoring
CPT/HCPCS: 82565; 84132; 84520